=== PATIENT | male | born 1965 | race Caucasian/White ===

== ENCOUNTER 2016-07-05 18:17 | Inpatient (IN) | payer OTHER ==
[~2016-07-05] VITALS: Ht 180.3 cm; Wt 52.7 kg
[~2016-07-05 18:17] MED LIST: [UNRECOGNIZED DRUG - MIXTURE] PO
--- NOTE | 2016-07-05 19:15 | DIAGNOSTIC IMAGING REPORT ---
LEFT RIBS UNILATERAL WITH PA CHEST CLINICAL HISTORY: Left rib pain following fall. COMPARISON STUDY: Chest radiograph October 17, 2009. FINDINGS: There is no pneumothorax or pleural effusion. There are multiple old left lower rib fractures. There is an acute displaced and comminuted fracture of the posterior left fifth and sixth ribs. There are also nondisplaced fractures of left fourth and seventh ribs. There may be a nondisplaced fracture the left third rib. IMPRESSION: Acute displaced fractures of the left fifth and sixth ribs with nondisplaced fractures of the left third, fourth and seventh ribs. No pneumothorax. Electronically signed by: Kalin Roberts M.D. 07/05/2016 7:14 PM
[2016-07-05] MEDS ORDERED: OXYCODONE HCL IR 5 MG TAB (IMMEDIATE RELEASE) PO STA (19:58)
--- NOTE | 2016-07-05 20:38 | DIAGNOSTIC IMAGING REPORT ---
LEFT SHOULDER MIN 2 VIEWS ROUTINE CLINICAL HISTORY: Left shoulder pain. COMPARISON: None FINDINGS: Multiple acute left-sided rib fractures are noted. There is also an acute mildly displaced oblique fracture of the distal left clavicle. IMPRESSION: 1. Mildly displaced acute fracture of the distal left clavicle. 2. Multiple acute left-sided rib fractures, as shown on prior rib series. Electronically signed by: Kalin Roberts M.D. 07/05/2016 8:36 PM
[2016-07-05] MEDS ORDERED: MULTI-VITAMIN INFUSION INJ 10 ML, FoLIC ACID INJ 1 MG, THIAMINE HCL INJ 100 MG in SODIU... IV STA (20:51)
[2016-07-05] MEDS ORDERED: KETOROLAC TROMETHAMINE 30 MG/ML VIAL ONE (21:27)
[2016-07-05] MEDS ORDERED: KETOROLAC TROMETHAMINE 30 MG/ML VIAL IV PRN (21:30)
[2016-07-05] MEDS ORDERED: TRAMADOL HCL 50 MG TAB PO PRN (21:30)
[2016-07-05] MEDS ORDERED: GABAPENTIN 600 MG TAB PO SCH (21:30)
[2016-07-05] MEDS ORDERED: LORAZEPAM 1 MG TAB PO PRN (21:30)
[2016-07-05 21:31] LABS: BLOOD UREA NITROGEN 5 mg/dl (7-18); CARBON DIOXIDE 22 mmol/L (21-32); CHLORIDE 92 mmol/L (98-107); CREATININE 0.45 mg/dl (0.60-1.40); GLUCOSE 86 mg/dl (70-99); POTASSIUM 3.5 mmol/L (3.5-5.1); SODIUM 128 mmol/L (136-145)
[2016-07-05 22:00] LABS: BASO % 0.2 %; BASO ABS # 0.02 K/uL (0-0.2); COMPLETE YES; HEMATOCRIT 33.9 % (42-52); IG% 0.4 %; LYMPH % 6.5 %; LYMPH ABS # 0.64 K/uL (1.2-3.4); MEAN CELL VOLUME 93.1 fL (80-100); MEAN CORPUSCULAR HEMOGLOBIN 33.5 pg (25-34); MEAN PLATELET VOLUME 9.7 fL (7.4-10.4); NEUT % 78.9 %; PLATELET COUNT 65 K/uL (130-400); PLT ESTIMATE DECREASED; RED BLOOD COUNT 3.64 M/uL (4.7-6.1); WHITE BLOOD COUNT 9.92 K/uL (4.8-10.8)
[2016-07-05 22:11] LABS: ALKALINE PHOSPHATASE 99 U/L (45-117); ALT/SGPT 55 U/L (12-78); AST/SGOT 116 U/L (15-37)
--- NOTE | 2016-07-05 22:31 | EMERGENCY ROOM VISIT NOTE ---
History First contact with patient: 18:18 Chief Complaint: RIB PAIN Stated Complaint: RIB PAIN History of Present Illness The patient is a 50 year old homeless male who presents to the Emergency Room via ambulance, and with a close friend, with complaints of persistent left- sided rib pain. The patient reports that he fell out of his cot last evening, landing on his left side. The patient was sleeping at a homeless detention. The patient reports mild shortness of breath and significant pain with breathing. He denies any head injury, neck pain or back pain. He rates his discomfort a 9 out of 10. He denies any prior history of rib fractures. Review of Systems HEENT: Denies dizziness, visual problems, hearing loss, tinnitus. Denies difficulty swallowing or oral lesions. PULMONARY: Denies significant cough, shortness of breath, sputum production or hemoptysis. CARDIOVASCULAR: Denies chest pain, palpitations, dyspnea on exertion, orthopnea or peripheral edema. GASTROINTESTINAL: Denies diarrhea, constipation, nausea, vomiting, or abdominal pain. GENITOURINARY: Denies dysuria, frequency, urgency or nocturia. NEUROLOGIC: Denies history of epilepsy, CVA, TIA or chronic headaches. MUSCULOSKELETAL: Denies history of joint tenderness/swelling. SKIN: Denies rashes or lesions. PSYCHIATRIC: Denies history of depression or mental illness. ENDOCRINE: Denies history of diabetes or thyroid disorders. Past Medical/Surgical History Medical Problems: (1) Alcoh Dep Nec/Nos-Unspec (2) Chest pain (3) Fracture Calcaneus-Close (4) Hypertension Nos (5) Sprain Of Ankle Nos Family History Unremarkable Social History Smoking Status: Current Every Day Smoker Alcohol Use: heavy Marital Status: single Housing Status: other (homeless) Occupation Status: unemployed Current/Historical Medications No Active Prescriptions or Reported Meds Allergies Coded Allergies: Penicillins (Unverified Allergy, Mild, TIRED, 10) Physical Exam Vital Signs Date Time Temp Pulse Resp B/P Pulse Ox O2 Delivery O2 Flow Rate FiO2 07/05/16 21:38 18 156/91 95 Nasal Cannula 3.0 07/05/16 20:00 18 95 Nasal Cannula 3.0 07/05/16 19:45 87 Room Air 07/05/16 18:25 37.0 105 16 166/125 92 Room Air Physical Exam CONSTITUTIONAL: Healthy and well nourished. Alert and oriented X 3 with positive affect. Patient appears in moderate discomfort from pain. HEENT: Normocephalic, atraumatic. Pupils equal, round and reactive. No facial abrasions, ecchymosis, hemotympanum, raccoon's eyes or Davison sign. NECK: Full active range of motion without discomfort. RESPIRATORY: Clear to auscultation bilaterally with no wheezing, crackles, rhonchi or stridor. The patient has significant worsening discomfort with deep breathing. CARDIOVASCULAR: Regular rate and rhythm with no murmurs, rubs or gallops. GASTROINTESTINAL: Bowel sounds present in all quadrants. Soft and nontender to palpation. MUSCULOSKELETAL: Examination shows significant tenderness to palpation through the left lateral ribs. He also has mild tenderness through the costochondral joints and posterior ribs on the left side. No subcutaneous emphysema or flail segment appreciated. Patient also has tenderness to palpation over the anterior shoulder/distal clavicle region. He has no tenderness to palpation through the sternoclavicular joints. Otherwise he has no tenderness to palpation or discomfort with range of motion of the upper or lower extremities. Distal pulses are intact. INTEGUMENTARY: No rash or other significant dermatologic conditions noted. NEUROLOGIC: Cranial nerves II-XII grossly intact. No focal neurologic deficits noted. Upper and lower extremities are sensory intact. Medical Decision & Procedures ER Provider Diagnostic Interpretation: My interpretation of left rib x-rays with the PA chest shows multiple left- sided rib fractures with nondisplaced fractures of the third, fourth and seventh ribs. He has displaced fractures of the posterior left fifth and sixth ribs. No pneumothorax appreciated. LEFT RIBS UNILATERAL WITH PA CHEST CLINICAL HISTORY: Left rib pain following fall. COMPARISON STUDY: Chest radiograph October 17, 2009. FINDINGS: There is no pneumothorax or pleural effusion. There are multiple old left lower rib fractures. There is an acute displaced and comminuted fracture of the posterior left fifth and sixth ribs. There are also nondisplaced fractures of left fourth and seventh ribs. There may be a nondisplaced fracture the left third rib. IMPRESSION: Acute displaced fractures of the left fifth and sixth ribs with nondisplaced fractures of the left third, fourth and seventh ribs. No pneumothorax. LEFT SHOULDER MIN 2 VIEWS ROUTINE CLINICAL HISTORY: Left shoulder pain. COMPARISON: None FINDINGS: Multiple acute left-sided rib fractures are noted. There is also an acute mildly displaced oblique fracture of the distal left clavicle. IMPRESSION: 1. Mildly displaced acute fracture of the distal left clavicle. 2. Multiple acute left-sided rib fractures, as shown on prior rib series. Laboratory Results 07/05/16 21:00 Red Blood Count 3.64, Mean Corpuscular Volume 93.1, Mean Corpuscular Hemoglobin 33.5, Mean Corpuscular Hemoglobin Concent 36.0, Mean Platelet Volume 9.7, Neutrophils (%) (Auto) 78.9, Lymphocytes (%) (Auto) 6.5, Monocytes (%) (Auto) 14.0, Eosinophils (%) (Auto) 0.0, Basophils (%) (Auto) 0.2, Neutrophils # (Auto ) 7.83, Lymphocytes # (Auto) 0.64, Monocytes # (Auto) 1.39, Eosinophils # (Auto ) 0.00, Basophils # (Auto) 0.02 07/05/16 21:00 Test 07/05/16 21:00 07/05/16 21:27 07/05/16 21:36 White Blood Count 9.92 K/uL (4.8-10.8) Red Blood Count 3.64 M/uL (4.7-6.1) Hemoglobin 12.2 g/dL (14.0-18.0) Hematocrit 33.9 % (42-52) Mean Corpuscular Volume 93.1 fL (80-100) Mean Corpuscular Hemoglobin 33.5 pg (25-34) Mean Corpuscular Hemoglobin Concent 36.0 g/dl (32-36) Platelet Count 65 K/uL (130-400) Mean Platelet Volume 9.7 fL (7.4-10.4) Neutrophils (%) (Auto) 78.9 % Lymphocytes (%) (Auto) 6.5 % Monocytes (%) (Auto) 14.0 % Eosinophils (%) (Auto) 0.0 % Basophils (%) (Auto) 0.2 % Neutrophils # (Auto) 7.83 K/uL (1.4-6.5) Lymphocytes # (Auto) 0.64 K/uL (1.2-3.4) Monocytes # (Auto) 1.39 K/uL (0.11-0.59) Eosinophils # (Auto) 0.00 K/uL (0-0.5) Basophils # (Auto) 0.02 K/uL (0-0.2) RDW Standard Deviation 40.7 fL (36.4-46.3) RDW Coefficient of Variation 12.0 % (11.5-14.5) Immature Granulocyte % (Auto) 0.4 % Immature Granulocyte # (Auto) 0.04 K/uL (0.00-0.02) Platelet Estimate DECREASED Anion Gap 14.0 mmol/L (3-11) Est Creatinine Clear Calc Drug Dose 192.3 ml/min Estimated GFR () > 150.0 Estimated GFR (Non- 131.0 BUN/Creatinine Ratio 10.0 (10-20) Calcium Level 8.0 mg/dl (8.5-10.1) Total Bilirubin 0.6 mg/dl (0.2-1) Direct Bilirubin 0.2 mg/dl (0-0.2) Aspartate Amino Transf (AST/SGOT) 116 U/L (15-37) Alanine Aminotransferase (ALT/SGPT) 55 U/L (12-78) Alkaline Phosphatase 99 U/L (45-117) Total Protein 6.8 gm/dl (6.4-8.2) Albumin 3.3 gm/dl (3.4-5.0) Creatine Kinase MB Ratio (0-3.0) The above labs were reviewed. Medications Administered Medications (Trade) Dose Ordered Sig/Jaylene Route Start Time Stop Time Status Last Admin Dose Admin Oxycodone HCl 5 mg 5 mg NOW STAT PO 07/05/16 19:58 07/05/16 19:59 DC 07/05/16 20:10 5 MG Multivitamins/ Folic Acid/ Thiamine HCl/ Sodium Chloride (Mvi Infusion Inj/Folvite Inj/ Vitamin B-1 Inj/ Nss 1000ml) 1,011.2 ml @ 999 mls/ hr Q1H1M STAT IV 07/05/16 20:51 07/05/16 21:51 DC 07/05/16 21:36 999 MLS/HR Ketorolac Tromethamine (Toradol Inj) 30 mg STK-MED ONCE .ROUTE 07/05/16 21:27 07/05/16 21:28 DC 07/05/16 21:36 30 MG ED Course Patient history and physical exam were performed. Nurse's notes were reviewed. Review of triage vital signs shows an elevated blood pressure 166/125 with a pulse rate of 105. O2 saturation was 92% on room air. The patient was afebrile. Smell of EtOH is also noted. The patient's best friend reports that the patient has a history of heavy alcohol use and dependence. The friend does not know if the patient has never had any withdrawal symptoms in the past. On initial exam, the patient refused any analgesics. X-rays of left ribs with PA chest shows 5 rib fractures. An x-ray of the left shoulder was also ordered because of a probable distal clavicle fracture seen on chest x-ray, with the shoulder x-ray confirming a distal clavicle fracture. The patient did request something then for pain, and was administered OxyIR 5 mg orally. The case was then further discussed with Dr. Henry, ED attending physician. As the patient's homeless status, and significant risk for developing pneumonia , along with the fact that the patient is mildly hypoxic, I felt that hospitalist evaluation and admission/observation for possible placement was warranted. Also patient was then placed with the [facility] hospitalist group, who came to the emergency department for further evaluation. At this point, I ordered baseline labs, and the patient was ordered a banana bag. Please see the hospitalist dictation for further treatment and final disposition. Medical Decision See previous section Impression Primary Impression: multiple left rib fractures Additional Impressions: Closed left clavicular fracture, Fall as cause of accidental injury in residential institution as place of occurrence, Alcohol dependence Departure Information Prescriptions No Active Prescriptions or Reported Meds Referrals No Doctor, Assigned (PCP) Patient Instructions A Signature Page, [facility]
[2016-07-05 22:57] LABS: CKMB/CK RATIO 0.6 (0-3.0)
[2016-07-05 23:04] VITALS: BP 183/101; PULSE 79; TEMP 36.9; O2SAT 94
[2016-07-05] MEDS ORDERED: OXYCODONE/ACETAMINOPHEN 5-325 TAB PO PRN (23:15)
[2016-07-05] MEDS ORDERED: IV FLUIDS COMPLETED PRN (23:30)
[2016-07-06] VITALS (34 sets, daily range): BP systolic 113–206; BP diastolic 74–111; PULSE 68–120; TEMP 36.4–39.3; O2SAT 90–98; BMI 21.5
[2016-07-06] MEDS ORDERED: GABAPENTIN 1200MG LOADING DOSE PO ONE
[2016-07-06] MEDS: SODIUM CHLORIDE 0.9% 1000ML 1,000 ML IV SCH ×3 (00:08→19:33)
[2016-07-06] MEDS: MoRPHine SULFATE 4 MG/ML 1 ML CARP\\VIAL IV PRN (00:09)
[2016-07-06] MEDS: CLONIDINE HCL 0.1 MG TAB PO PRN ×4 (00:36→23:54)
--- NOTE | 2016-07-06 01:23 | HISTORY & PHYSICAL EXAMINATION ---
DATE OF ADMISSION: 07/05/2016 TIME: 9:36 p.m. HISTORY OF PRESENT ILLNESS: The patient is a pleasant 50-year-old male, who resides in a homeless jail, history of alcoholism, smoking and chart history of hypertension presenting with left-sided chest pain after a fall which started yesterday. As per patient, he was in his baseline state of health until last night when while sleeping he accidentally fell out of the bed and landed on the floor. Since then has been having progressive left-sided rib pain/chest pain, sharp, moderate to severe. No associated shortness of breath, palpitations, nausea, vomiting, dizziness or headache. No other pain in his body. The pain has been progressive, he has not tried any pain medications at outside hospital yet. His friends urged him to come to the Emergency Room for evaluation. At the ED, the patient was admitted with blood pressure of 166/125, pulse oximetry 92% on room air becoming 87% on room air on 3 liters 95% afebrile. His chest x-ray did show displaced comminuted fractures of the 5th and 6th ribs and also nondisplaced fractures of the left 4th and 7th ribs as well as nondisplaced fracture of the left 3rd rib. His clavicle also showed mildly displaced acute fracture of the distal left clavicle. The patient was given oxycodone in the ER and referred to hospitalist for admission. When I examined the patient, he is resting in bed. He states that his pain is moderate, he denies shortness of breath. No palpitations, nausea, vomiting, diaphoresis, headache, dizziness or change with vision. No other symptoms noted. He states that he drinks alcohol, 10-12 beers a day, last drink yesterday. He denies tremors, hallucinations or anxiety. Also smokes [id number] for the past 20 years. Denies any other symptoms. REVIEW OF SYSTEMS: Ten systems reviewed and negative except for the ones mentioned above. PAST MEDICAL HISTORY: The patient does not see any primary care physician. He lives in a homeless jail. He does have chart history of alcoholism, smoking and hypertension. PAST SURGICAL HISTORY: Unremarkable. FAMILY HISTORY: Cancer in both parents. PERSONAL AND SOCIAL HISTORY: He smokes [id number]-day for 20 years. He drinks alcohol, 10-12 beers a day, last drink was yesterday. PHYSICAL EXAMINATION: VITAL SIGNS: Blood pressure is 166/125, pulse rate 105, respiratory rate 14, temperature is 37.6, saturating 95% on 3 liters nasal cannula. GENERAL: The patient is awake, alert, oriented x3, not in distress, speaks in sentences. No accessory muscle use. HEAD AND NECK: Atraumatic and normocephalic. Normal pupils. Full EOMs. No icterus. Aristes conjunctivae. ENT: Grossly normal. NECK: No JVD, no lymphadenopathy or thyromegaly. HEART: Normal rate. Regular rhythm. Good S1 and S2. No murmurs. LUNGS: Clear breath sounds bilaterally. No rales or wheezes. Positive tenderness on the left 4th and 6th ribs and clavicle area. ABDOMEN: Nondistended, normal bowel sounds, soft, nontender. EXTREMITIES: No lower leg edema, no tenderness. The patient declined examination of his feet. NEUROLOGIC: No gross focal motor or sensory deficits. LABORATORIES: CBC is pending. PRP; sodium 128, potassium 3.5, chloride is 92, carbon dioxide 22, anion gap 14, BUN is 5, creatinine is 0.45, calcium is 8.0. Chest x-ray and shoulder x-ray per my H\T\P. EKG pending. ASSESSMENT AND PLAN: This is a 50-year-old male, who lives in a homeless jail with a history of alcoholism, smoking and hypertension by chart history; presenting with left-sided rib/chest pains after a fall since last night. 1. Left-sided chest pain, likely secondary to acute left rib fractures; 4th to 7th ribs as well as left clavicle fracture secondary to accidental fall. At this time, management will be mainly pain control with p.r.n. Toradol and tramadol. Also will be placed on incentive spirometry, intravenous fluids, physical therapy and occupational therapy evaluation. Orthopedic consultation will be placed for further recommendations. 2. Hypoxia, likely secondary to #1. We will continue pulse oximetry monitoring and incentive spirometry. 3. Hypertension history. Currently hypertensive, likely secondary to pain, which we will monitor. We will place clonidine p.r.n. for now. May need maintenance blood pressure medications if this is still uncontrolled despite for pain control. 4. Alcoholism drinks 10-12 beers per day, last drink was yesterday. Currently, does not exhibit any signs of withdrawal yet. We will follow alcohol withdrawal protocol and the patient is at risk for alcohol withdrawal, so gabapentin protocol tapering doses. He was started on banana bag as well. 5. Hyponatremia of 128, likely secondary to dehydration. We will start banana bag and will proceed with normal saline. We will recheck PRP in 6 hours and further monitor him based on that. 6. Deep venous thrombosis prophylaxis: SCDs for now. 7. Code status: Full code per patient. 8. Disposition: Pending. He resides in a homeless jail. We will consult case management.
[2016-07-06 03:56] LABS: HEMATOCRIT 31.5 % (42-52); MEAN CELL VOLUME 94.3 fL (80-100); MEAN CORPUSCULAR HEMOGLOBIN 33.8 pg (25-34); MEAN CORPUSCULAR HGB CONC 35.9 g/dl (32-36); RED BLOOD COUNT 3.34 M/uL (4.7-6.1); WHITE BLOOD COUNT 8.47 K/uL (4.8-10.8)
[2016-07-06 03:58] LABS: MEAN PLATELET VOLUME 10.5 fL (7.4-10.4); PLATELET COUNT 58 K/uL (130-400)
[2016-07-06] MEDS ORDERED: AMLODIPINE BESYLATE 5 MG TAB PO ONE (04:00)
[2016-07-06 04:14] LABS: BUN/CREATININE RATIO 10.2 (10-20); CALCIUM 7.5 mg/dl (8.5-10.1); CREATININE 0.5 mg/dl (0.60-1.40); MAGNESIUM 1.6 mg/dl (1.8-2.4); POTASSIUM 3.5 mmol/L (3.5-5.1)
[2016-07-06 04:18] LABS: CKMB/CK RATIO 0.5 (0-3.0)
[2016-07-06 04:20] LABS: BASO % 0.1 %; BASO ABS # 0.01 K/uL (0-0.2); COMPLETE YES; IG% 0.4 %; LYMPH ABS # 0.76 K/uL (1.2-3.4); MONO % 15.2 %; NEUT % 75.3 %
[2016-07-06] MEDS: GABAPENTIN 600MG Q6H DOSE PO SCH ×2 (06:34→12:20)
[2016-07-06] MEDS: NICOTINE 14 MG/24 HR TDSY TD SCH (09:00)
[2016-07-06] MEDS: THIAMINE HCL 100 MG TAB PO SCH (09:00)
--- NOTE | 2016-07-06 10:21 | ECHOCARDIOGRAM REPORT ---
*NOTICE TO RECEIVING LIBERTARIAN AGENCY This information is strictly Confidential and protected under [place] law. [place] law prohibits you from making any further disclosure of this information unless further disclosure is expressly permitted by the written consent of the person to whom it pertains or is authorized by law. A general authorization for the release of medical or other information is not sufficient for this purpose. Hospital accepts no responsibility if the information is made available to any other person, INCLUDING THE PATIENT. Interpretation Summary * Name: ANG MEDEL Study Date: 07/06/2016 08:00 AM BP: 177/94 mmHg * Patient Location: .3E\S\E305\S\1 HR: 88 * : 1965 (M/d/yyyy) Gender: Male Height: 70 in * Age: 50 yrs Ethnicity: CA Weight: 154 lb * Ordering Physician: Romario Ratliff * Performed By: Nicki Messina RCS * * Reason For Study: T-WAVE INVERSION / ANTERIOR LEADS * BSA: 1.9 m2 * The study was technically adequate. * -- Conclusions -- * Left ventricular systolic function is normal. * Ejection Fraction = 60-65%. * The aortic valve is bicuspid. * Trace aortic regurgitation. * Aortic stenosis is absent. * Moderately dilated ascending aorta. * Mild aortic root dilatation. * There is mild tricuspid regurgitation. * Estimated systolic PAP is 37mmHg. Procedure Details * A complete two-dimensional transthoracic echocardiogram was performed (2D, M-mode, Doppler and color flow Doppler). Left Ventricle * The left ventricle is normal in size. * There is normal left ventricular wall thickness. * Left ventricular systolic function is normal. * Ejection Fraction = 60-65%. * No regional wall motion abnormalities noted. Right Ventricle * The right ventricle is normal size. * The right ventricular systolic function is normal as assessed by tricuspid annular plane systolic excursion (TAPSE) (normal >1.5 cm). Atria * The left atrial size is normal. * Right atrial size is normal. * There is no evidence of atrial septal defect, but resolution does not allow assessment for a patent foramen ovale. Mitral Valve * The mitral valve is normal. * There is no mitral valve stenosis. * There is trace mitral regurgitation. Tricuspid Valve * The tricuspid valve is normal. * There is no tricuspid stenosis. * There is mild tricuspid regurgitation. * Estimated systolic PAP is 37mmHg. Aortic Valve * The aortic valve is bicuspid. * Aortic stenosis is absent. * Trace aortic regurgitation. Pulmonic Valve * The pulmonary valve is not well seen, but the Doppler examination is normal without significant regurgitation or stenosis. Great Vessels * Mild aortic root dilatation. * Moderately dilated ascending aorta. Pericardium/Pleural * There is no pericardial effusion. Great Vessels * Normal inferior vena cava diameter and respiratory variation suggests normal central venous pressure. Left Ventricular Diastolic Function * Pulse wave TDI of the anterior and posterior mitral annulas demonstrates abnormal LV relaxation MMode 2D Measurements and Calculations IVSd 1.1 cm IVSs 1.4 cm LVIDd 4.2 cm LVIDs 3.5 cm LVPWd 0.90 cm LVPWs 1.1 cm IVS/LVPW 1.2 FS 17.9 % EDV(Teich) 80.5 ml ESV(Teich) 50.3 ml EF(Teich) 37.5 % EDV(cubed) 76.4 ml ESV(cubed) 42.3 ml EF(cubed) 44.7 % % IVS thick 31.7 % % LVPW thick 25.4 % LV mass(C)d 138.1 grams LV mass(C)dI 74.0 grams/m\S\2 LV mass(C)s 149.0 grams LV mass(C)sI 79.8 grams/m\S\2 SV(Teich) 30.2 ml SI(Teich) 16.2 ml/m\S\2 SV(cubed) 34.2 ml SI(cubed) 18.3 ml/m\S\2 Ao root diam 4.1 cm Ao root area 13.0 cm\S\2 asc Aorta Diam 4.6 cm LVOT diam 2.0 cm LVOT area 3.2 cm\S\2 Doppler Measurements and Calculations MV E max coleen 59.8 cm/sec MV A max coleen 64.8 cm/sec MV E/A 0.92 MV P1/2t max coleen 116.5 cm/sec MV P1/2t 66.4 msec MVA(P1/2t) 3.3 cm\S\2 MV dec slope 513.8 cm/sec\S\2 MV dec time 0.24 sec Ao V2 max 120.1 cm/sec Ao max PG 5.8 mmHg Ao max PG (full) 3.5 mmHg ADALGISA(V,A) 2.0 cm\S\2 ADALGISA(V,D) 2.0 cm\S\2 AI max coleen 379.2 cm/sec AI max PG 57.5 mmHg AI dec slope 216.3 cm/sec\S\2 AI P1/2t 513.4 msec LV V1 max PG 2.3 mmHg LV V1 max 75.9 cm/sec PA V2 max 123.6 cm/sec PA max PG 6.1 mmHg TR max coleen 274.8 cm/sec
--- NOTE | 2016-07-06 11:15 | DIAGNOSTIC IMAGING REPORT ---
CHEST ONE VIEW PORTABLE HISTORY: Short of breath. infiltrate/congestion COMPARISON: Chest 10/17/2009. [Rib series 07/05/2016. FINDINGS: Multiple acute left-sided rib fractures are again noted. There is a new [id number] left pleural effusion with left basilar densities suggesting atelectasis. The right lung is clear. The heart is normal in size. No pneumothorax. IMPRESSION: 1. Redemonstration of the multiple acute left-sided rib fractures. No pneumothorax. 2. Interval development of a small to moderate left pleural effusion. This likely represents a hemothorax given the recent trauma. Electronically signed by: Jigar Cassidy M.D. 07/06/2016 11:14 AM
[2016-07-06] MEDS ORDERED: PIPERACILL/TAZOBAC CONSULT ACTIVE PRN (11:30)
[2016-07-06] MEDS ORDERED: PIPERACILL/TAZOBAC IV 4.5 GM in DEXTROSE 5% 100ML 100 ML IV ONE (12:15)
[2016-07-06] MEDS ORDERED: NURSING VERBAL MED ORDER ONE (12:15)
[2016-07-06] MEDS ORDERED: MICONAZOLE NITRATE POWDER 43 GM EXT PRN (12:30)
[2016-07-06] MEDS ORDERED: MAGNESIUM SULFATE 1GM / D5W 1 GM in PREMIXED IN D5W 100 ML IV ONE (14:00)
--- NOTE | 2016-07-06 14:12 | Orthopedic Progress Note ---
Orthopedic Progress Note Date of Service Jul 06, 2016. Subjective Reports: feeling well Additional Notes: 50 y/o wm with h/o falling out of his bed/cot last night at a homeless half-way. At that time he had pain in his left rib cage and shoulder. A friend convinced him to go to the ER where he was seen by the staff. Xrays revealed multiple rib fx's and a left clavicle fracture. Pt was noted to be hypertensive and low O2 sats off and on and was admitted for further eval. Currently, pt is febrile. (BC's ordered) BP's under better control. Pt currently is awake, alert to person, place. C/O Left rib/shoulder pain. Denies SOB, CP currently. Objective Left arm is not in a sling yet. Left shoulder with swelling due to clavicle fx. Denies elbow pain, wrist/hand pain. Decreased ROM of shoulder due to fx. CMS intact. Good capillary refill. Date Time Temp Pulse Resp B/P Pulse Ox O2 Delivery O2 Flow Rate FiO2 07/06/16 12:24 37.8 07/06/16 11:32 39.3 07/06/16 10:08 39.3 91 24 155/87 92 Nasal Cannula 3.0 07/06/16 08:17 38.4 110 28 164/106 90 3.0 07/06/16 08:14 38.4 85 26 166/87 94 Nasal Cannula 3.0 07/06/16 07:41 Nasal Cannula 3.0 07/06/16 07:39 38.4 110 28 164/106 90 3.0 07/06/16 06:43 172/100 07/06/16 03:47 37.5 68 16 177/94 98 Nasal Cannula 3.0 07/06/16 02:15 175/85 07/06/16 00:40 177/92 07/06/16 00:38 Nasal Cannula 3.0 07/06/16 00:09 Nasal Cannula 3.0 07/05/16 23:04 36.9 79 18 183/101 94 Nasal Cannula 3.0 07/05/16 22:41 37.0 68 18 165/102 96 07/05/16 21:38 18 156/91 95 Nasal Cannula 3.0 07/05/16 20:00 18 95 Nasal Cannula 3.0 07/05/16 19:45 87 Room Air 07/05/16 18:25 37.0 105 16 166/125 92 Room Air Laboratory Results 24 Hours: Test 07/05/16 21:00 07/06/16 03:25 White Blood Count 9.92 K/uL 8.47 K/uL Red Blood Count 3.64 M/uL 3.34 M/uL Hemoglobin 12.2 g/dL 11.3 g/dL Hematocrit 33.9 % 31.5 % Mean Corpuscular Volume 93.1 fL 94.3 fL Mean Corpuscular Hemoglobin 33.5 pg 33.8 pg Mean Corpuscular Hemoglobin Concent 36.0 g/dl 35.9 g/dl Platelet Count 65 K/uL 58 K/uL Mean Platelet Volume 9.7 fL 10.5 fL Neutrophils (%) (Auto) 78.9 % 75.3 % Lymphocytes (%) (Auto) 6.5 % 9.0 % Monocytes (%) (Auto) 14.0 % 15.2 % Eosinophils (%) (Auto) 0.0 % 0.0 % Basophils (%) (Auto) 0.2 % 0.1 % Neutrophils # (Auto) 7.83 K/uL 6.38 K/uL Lymphocytes # (Auto) 0.64 K/uL 0.76 K/uL Monocytes # (Auto) 1.39 K/uL 1.29 K/uL Eosinophils # (Auto) 0.00 K/uL 0.00 K/uL Basophils # (Auto) 0.02 K/uL 0.01 K/uL Assessment & Plan Assessment: Left Clavicle Fracture Left Rib Fractures Plan: Plan for pt to use a sling on the LUE for 4-6 weeks Continue current pain meds Inhouse Planning Pain Management: Percocet, Ultram, Morphine
[2016-07-06 17:11] LABS: PROTHROMBIN TIME (PATIENT) 10.9 SECONDS (9.0-12.0)
[2016-07-06] MEDS: PIPERACILL/TAZOBAC IV 3.375 GM in DEXTROSE 5% 100ML 100 ML IV SCH (17:45)
[2016-07-06 17:55] LABS: MANUAL MICROSCOPIC REQUIRED? NO; REVIEW REQ? NO; URINE APPEARANCE CLEAR (CLEAR); URINE BILIRUBIN NEG (NEG); URINE COLOR YELLOW; URINE NITRITE NEG (NEG); URINE SPECIFIC GRAVITY 1.023 (1.000-1.030); UROBILINOGEN NEG (NEG); ZZUR CULT IF INDIC CLEAN CATCH NO
--- NOTE | 2016-07-06 19:00 | Pulmonary Consultation ---
History General Date of Service: Jul 06, 2016. Stated Complaint: Chest Pain possible hemothorax HPI The patient is a 50 year old male who presents to [facility] with complaints of Chest Pain. The patient's primary care provider is No Doctor , Assigned. At the time of my evaluation the patient was altered and would not answer any questions. All my notes are from EMS. 50y/o male s/p male whom lives in homeless [facility], history of alcoholism, smoking and hypertension. He presented after fall with left-sided chest pain after a fall which started yesterday. As per patient, he was in his baseline state of health until last night when while sleeping he accidentally fell out of the bed and landed on the floor. He then expericneed progressive left-sided rchest pain. He described it as sharp, moderate to severe. At that time he deined: shortness of breath, palpitations, nausea, vomiting, dizziness or headache. No other pain in his body. smokes [id number] for the past 20 years Cardiac Echo 07/06/2016 * LV: EF=60-65% * The aortic valve is bicuspid. * Moderately dilated ascending aorta * Estimated systolic PAP is 37mmHg. Review of Systems Patient is unable to complete review of systems Past Medical History Past Medical History: Per the charts hypertension Past Surgical History: Past medical history Social History Hx Tobacco Use In Past Year?: Yes Smoking Status: Current Every Day Smoker Marital status: single Occupational Status: unemployed History of MDRO History of MDRO: No Allergies Coded Allergies: Penicillins (Unverified Adverse Reaction, Mild, TIRED, 07/06/16) Current Medications Reported Home Medications Medications Dose Route/Sig Max Daily Dose Days Date Category No Active Prescriptions or Reported Medications Rx Physical Physical Exam Vital Signs: Date Time Temp Pulse Resp B/P Pulse Ox O2 Delivery O2 Flow Rate FiO2 07/06/16 18:45 37.8 103 26 159/89 95 Nasal Cannula 3.0 07/06/16 18:25 37.4 116 24 192/102 93 Nasal Cannula 3.0 07/06/16 17:50 38.0 101 24 196/111 94 Nasal Cannula 3.0 07/06/16 15:22 39.1 93 18 128/77 93 Nasal Cannula 3.0 07/06/16 14:42 38.9 99 20 142/83 91 Nasal Cannula 2.0 07/06/16 12:24 37.8 07/06/16 11:32 39.3 07/06/16 10:08 39.3 91 24 155/87 92 Nasal Cannula 3.0 07/06/16 08:17 38.4 110 28 164/106 90 3.0 07/06/16 08:14 38.4 85 26 166/87 94 Nasal Cannula 3.0 07/06/16 07:41 Nasal Cannula 3.0 07/06/16 07:39 38.4 110 28 164/106 90 3.0 07/06/16 06:43 172/100 07/06/16 03:47 37.5 68 16 177/94 98 Nasal Cannula 3.0 07/06/16 02:15 175/85 07/06/16 00:40 177/92 07/06/16 00:38 Nasal Cannula 3.0 07/06/16 00:09 Nasal Cannula 3.0 07/05/16 23:04 36.9 79 18 183/101 94 Nasal Cannula 3.0 07/05/16 22:41 37.0 68 18 165/102 96 07/05/16 21:38 18 156/91 95 Nasal Cannula 3.0 07/05/16 20:00 18 95 Nasal Cannula 3.0 07/05/16 19:45 87 Room Air I was unable to perform a full physical evaluation of the patient refused physical exam General Appearance: mild distress Head: NORMOCEPHALIC Eyes: other (patient was poorly compliant with my evaluation would not fully open both eyes was able to open intermittently spontaneously) ENT: other Diagnostics Labs Results Past 24 Hours Test 07/05/16 21:00 07/05/16 21:36 07/05/16 22:15 07/06/16 03:25 Range/Units White Blood Count 9.92 8.47 4.8-10.8 K/uL Red Blood Count 3.64 3.34 4.7-6.1 M/uL Hemoglobin 12.2 11.3 14.0-18.0 g/dL Hematocrit 33.9 31.5 42-52 % Mean Corpuscular Volume 93.1 94.3 80-100 fL Mean Corpuscular Hemoglobin 33.5 33.8 25-34 pg Mean Corpuscular Hemoglobin Concent 36.0 35.9 32-36 g/dl Platelet Count 65 58 130-400 K/uL Mean Platelet Volume 9.7 10.5 7.4-10.4 fL Neutrophils (%) (Auto) 78.9 75.3 % Lymphocytes (%) (Auto) 6.5 9.0 % Monocytes (%) (Auto) 14.0 15.2 % Eosinophils (%) (Auto) 0.0 0.0 % Basophils (%) (Auto) 0.2 0.1 % Neutrophils # (Auto) 7.83 6.38 1.4-6.5 K/uL Lymphocytes # (Auto) 0.64 0.76 1.2-3.4 K/uL Monocytes # (Auto) 1.39 1.29 0.11-0.59 K/uL Eosinophils # (Auto) 0.00 0.00 0-0.5 K/uL Basophils # (Auto) 0.02 0.01 0-0.2 K/uL RDW Standard Deviation 40.7 41.4 36.4-46.3 fL RDW Coefficient of Variation 12.0 12.1 11.5-14.5 % Immature Granulocyte % (Auto) 0.4 0.4 % Immature Granulocyte # (Auto) 0.04 0.03 0.00-0.02 K/uL Platelet Estimate DECREASED Sodium Level 128 130 136-145 mmol/L Potassium Level 3.5 3.5 3.5-5.1 mmol/L Chloride Level 92 92 98-107 mmol/L Carbon Dioxide Level 22 25 21-32 mmol/L Anion Gap 14.0 13.0 3-11 mmol/L Blood Urea Nitrogen 5 5 7-18 mg/dl Creatinine 0.45 0.50 0.60-1.40 mg/dl Est Creatinine Clear Calc Drug Dose 192.3 173.1 ml/min Estimated GFR () > 150.0 145.4 Estimated GFR (Non- 131.0 125.5 BUN/Creatinine Ratio 10.0 10.2 10-20 Random Glucose 86 72 70-99 mg/dl Calcium Level 8.0 7.5 8.5-10.1 mg/dl Total Bilirubin 0.6 0.2-1 mg/dl Direct Bilirubin 0.2 0-0.2 mg/dl Aspartate Amino Transf (AST/SGOT) 116 15-37 U/L Alanine Aminotransferase (ALT/SGPT) 55 12-78 U/L Alkaline Phosphatase 99 45-117 U/L Total Creatine Kinase 622 590 39-308 U/L Creatine Kinase MB 4.0 3.0 0.5-3.6 ng/ml Creatine Kinase MB Ratio 0.6 0.5 0-3.0 Troponin I < 0.015 0.018 0-0.045 ng/ml Total Protein 6.8 6.4-8.2 gm/dl Albumin 3.3 3.4-5.0 gm/dl Vitamin B12 Level 533 211-911 pg/mL Folate > 24.00 >5.38 ng/mL Red Blood Cell Morphology Unremarkable Magnesium Level 1.6 1.8-2.4 mg/dl Test 07/06/16 16:43 07/06/16 17:40 Range/Units Prothrombin Time 10.9 9.0-12.0 SECONDS Prothromb Time International Ratio 1.0 0.9-1.1 Urine Color YELLOW Urine Appearance CLEAR CLEAR Urine pH 6.0 4.5-7.5 Urine Specific [place] 1.023 1.000-1.030 Urine Protein TRACE NEG Urine Glucose (UA) NEG NEG Urine Ketones 2+ NEG Urine Occult Blood NEG NEG Urine Nitrite NEG NEG Urine Bilirubin NEG NEG Urine Urobilinogen NEG NEG Urine Leukocyte Esterase NEG NEG Urine WBC (Auto) 1-5 0-5 /hpf Urine RBC (Auto) 0-4 0-4 /hpf Urine Hyaline Casts (Auto) 0 0-5 /lpf Urine Epithelial Cells (Auto) 10-20 0-5 /lpf Urine Bacteria (Auto) NEG NEG Microbiology Results 07/06/16 Blood Culture, Received Pending 07/06/16 Blood Culture, Received Pending Diagnostic Radiology Chest x-ray 07/06/16 demonstrates opacification of the left hemidiaphragm multiple rib fractures EKG Possible left ventricular hypertrophy otherwise within normal limits Impression Assessment and Plan 50-year-old alcoholic gentleman with possible hemothorax: #1 hemothorax: Medically should attempt to drain the left hemithorax as soon as possible so is the possible hemothorax cannot consolidate a require surgical intervention. The patient is noncompliant at this time and I do not think prepared right deemed competent to consent for procedure. #2 hypoxemia: Most likely associated with his pneumothorax, atelectasis and splinting from pain. At this time chest physiotherapy would be appropriate. The most beneficial action would be patient to ambulate and drainage of the most likely hemothorax. I thank you for this consultation we'll continue to be in house please consult when patient is ready.
--- NOTE | 2016-07-06 19:04 | Progress Note ---
Internal Med Progress Note Date of Service: Jul 06, 2016. Provider Documentation: SUBJECTIVE: patient presented s/p fall and rib fractures alcoholism confused currently spiking temps OBJECTIVE: Vital Signs-as noted below Exam: General-alert and awake. Confused ENT-hard of hearing Neck-no neck masses Lungs-cta b/l no wheezing or crackles Heart-s1 and s2 heard regular rate and rhythm, no murmurs Abdomen-soft bowel sounds present no distension Extremities-no pedal edema no erythema foul smelling feet Neuro-alert and awake. confused moves extremities Lab data as noted below. ASSESSMENT & PLAN: This is a 50-year-old male, who lives in a homeless intermediate with a history of alcoholism, smoking and hypertension by chart history; presenting with left-sided rib/chest pains after a fall since last night. 1. Left-sided chest pain, secondary to acute left rib fractures; 4th to 7th ribs as well as left clavicle fracture secondary to accidental fall. pain control appreciate ortho input pt/ot. 2. hemothorax possibly consulted pulmonary and plan for tapping 3. Sepsis? spiking temp and tachycardia foul smelling feet started on Zosyn f/u cx and lactic acid 4. Hypoxia, likely secondary to above. We will continue pulse oximetry monitoring and incentive spirometry. 5. Hypertension history. on clonidine prn may need medications on discharge. 6. Alcoholism drinks 10-12 beers per day, last drink was yesterday. on gabapentin protocol tapering doses.iv Ativan prn close monitor may need to transfer to pcu. 5. Hyponatremia of 128, likely secondary to dehydration. Na 130 today on fluids f/u labs in am. 6. Deep venous thrombosis prophylaxis: SCDs for now. DISPOSITION to be determined Vital Signs: Date Time Temp Pulse Resp B/P Pulse Ox O2 Delivery O2 Flow Rate FiO2 07/06/16 18:45 37.8 103 26 159/89 95 Nasal Cannula 3.0 07/06/16 18:25 37.4 116 24 192/102 93 Nasal Cannula 3.0 07/06/16 17:50 38.0 101 24 196/111 94 Nasal Cannula 3.0 07/06/16 15:22 39.1 93 18 128/77 93 Nasal Cannula 3.0 07/06/16 14:42 38.9 99 20 142/83 91 Nasal Cannula 2.0 12/21/16 12:24 37.8 07/06/16 11:32 39.3 07/06/16 10:08 39.3 91 24 155/87 92 Nasal Cannula 3.0 07/06/16 08:17 38.4 110 28 164/106 90 3.0 07/06/16 08:14 38.4 85 26 166/87 94 Nasal Cannula 3.0 07/06/16 07:41 Nasal Cannula 3.0 07/06/16 07:39 38.4 110 28 164/106 90 3.0 07/06/16 06:43 172/100 07/06/16 03:47 37.5 68 16 177/94 98 Nasal Cannula 3.0 07/06/16 02:15 175/85 07/06/16 00:40 177/92 07/06/16 00:38 Nasal Cannula 3.0 07/06/16 00:09 Nasal Cannula 3.0 07/05/16 23:04 36.9 79 18 183/101 94 Nasal Cannula 3.0 07/05/16 22:41 37.0 68 18 165/102 96 07/05/16 21:38 18 156/91 95 Nasal Cannula 3.0 07/05/16 20:00 18 95 Nasal Cannula 3.0 07/05/16 19:45 87 Room Air Lab Results: Results Past 24 Hours Test 07/05/16 21:00 07/05/16 21:36 07/05/16 22:15 07/06/16 03:25 Range/Units White Blood Count 9.92 8.47 4.8-10.8 K/uL Red Blood Count 3.64 3.34 4.7-6.1 M/uL Hemoglobin 12.2 11.3 14.0-18.0 g/dL Hematocrit 33.9 31.5 42-52 % Mean Corpuscular Volume 93.1 94.3 80-100 fL Mean Corpuscular Hemoglobin 33.5 33.8 25-34 pg Mean Corpuscular Hemoglobin Concent 36.0 35.9 32-36 g/dl Platelet Count 65 58 130-400 K/uL Mean Platelet Volume 9.7 10.5 7.4-10.4 fL Neutrophils (%) (Auto) 78.9 75.3 % Lymphocytes (%) (Auto) 6.5 9.0 % Monocytes (%) (Auto) 14.0 15.2 % Eosinophils (%) (Auto) 0.0 0.0 % Basophils (%) (Auto) 0.2 0.1 % Neutrophils # (Auto) 7.83 6.38 1.4-6.5 K/uL Lymphocytes # (Auto) 0.64 0.76 1.2-3.4 K/uL Monocytes # (Auto) 1.39 1.29 0.11-0.59 K/uL Eosinophils # (Auto) 0.00 0.00 0-0.5 K/uL Basophils # (Auto) 0.02 0.01 0-0.2 K/uL RDW Standard Deviation 40.7 41.4 36.4-46.3 fL RDW Coefficient of Variation 12.0 12.1 11.5-14.5 % Immature Granulocyte % (Auto) 0.4 0.4 % Immature Granulocyte # (Auto) 0.04 0.03 0.00-0.02 K/uL Platelet Estimate DECREASED Sodium Level 128 130 136-145 mmol/L Potassium Level 3.5 3.5 3.5-5.1 mmol/L Chloride Level 92 92 98-107 mmol/L Carbon Dioxide Level 22 25 21-32 mmol/L Anion Gap 14.0 13.0 3-11 mmol/L Blood Urea Nitrogen 5 5 7-18 mg/dl Creatinine 0.45 0.50 0.60-1.40 mg/dl Est Creatinine Clear Calc Drug Dose 192.3 173.1 ml/min Estimated GFR () > 150.0 145.4 Estimated GFR (Non- 131.0 125.5 BUN/Creatinine Ratio 10.0 10.2 10-20 Random Glucose 86 72 70-99 mg/dl Calcium Level 8.0 7.5 8.5-10.1 mg/dl Total Bilirubin 0.6 0.2-1 mg/dl Direct Bilirubin 0.2 0-0.2 mg/dl Aspartate Amino Transf (AST/SGOT) 116 15-37 U/L Alanine Aminotransferase (ALT/SGPT) 55 12-78 U/L Alkaline Phosphatase 99 45-117 U/L Total Creatine Kinase 622 590 39-308 U/L Creatine Kinase MB 4.0 3.0 0.5-3.6 ng/ml Creatine Kinase MB Ratio 0.6 0.5 0-3.0 Troponin I < 0.015 0.018 0-0.045 ng/ml Total Protein 6.8 6.4-8.2 gm/dl Albumin 3.3 3.4-5.0 gm/dl Vitamin B12 Level 533 211-911 pg/mL Folate > 24.00 >5.38 ng/mL Red Blood Cell Morphology Unremarkable Magnesium Level 1.6 1.8-2.4 mg/dl Test 07/06/16 16:43 07/06/16 17:40 Range/Units Prothrombin Time 10.9 9.0-12.0 SECONDS Prothromb Time International Ratio 1.0 0.9-1.1 Urine Color YELLOW Urine Appearance CLEAR CLEAR Urine pH 6.0 4.5-7.5 Urine Specific [place] 1.023 1.000-1.030 Urine Protein TRACE NEG Urine Glucose (UA) NEG NEG Urine Ketones 2+ NEG Urine Occult Blood NEG NEG Urine Nitrite NEG NEG Urine Bilirubin NEG NEG Urine Urobilinogen NEG NEG Urine Leukocyte Esterase NEG NEG Urine WBC (Auto) 1-5 0-5 /hpf Urine RBC (Auto) 0-4 0-4 /hpf Urine Hyaline Casts (Auto) 0 0-5 /lpf Urine Epithelial Cells (Auto) 10-20 0-5 /lpf Urine Bacteria (Auto) NEG NEG Microbiology Results 07/06/16 Blood Culture, Received Pending 07/06/16 Blood Culture, Received Pending
[2016-07-06] MEDS: LORAZEPAM INJ 1 MG in SYRINGE 0.5 ML IV PRN ×2 (19:21→22:34)
[2016-07-06] MEDS: ACETAMINOPHEN 325 MG TAB PO PRN (19:33)
--- NOTE | 2016-07-06 20:17 | ORTHOPEDIC CONSULTATION ---
DATE OF CONSULTATION: 07/06/2016 HISTORY OF PRESENT ILLNESS: A 50-year-old male consulted with regard to left shoulder pain. The patient was examined. He is comfortable in bed, not wearing his sling. Distal neurological exam is intact. Shoulder is moderately swollen. No deformity. The patient was placed back into his sling in appropriate position. Radiographs reviewed demonstrate a distal third clavicle fracture; it is between the AC joint and the coracoclavicular ligaments with the coracoclavicular ligaments so being intact and no superior migration of the medial fragment. Treatment in this individual will be a sling. The patient could be followed as an outpatient upon discharge from hospital.
[2016-07-06] MEDS: MAGNESIUM OXIDE 400 MG TAB PO SCH (21:37)
[2016-07-07] VITALS (61 sets, daily range): BP systolic 86–189; BP diastolic 51–101; PULSE 60–129; TEMP 36.2–39.4; O2SAT 87–100
[2016-07-07] MEDS: NICOTINE 14 MG/24 HR TDSY TD SCH ×2 (00:30→09:00)
[2016-07-07] MEDS: LORAZEPAM INJ 1 MG in SYRINGE 0.5 ML IV PRN ×2 (00:37→02:28)
[2016-07-07] MEDS: MoRPHine SULFATE 4 MG/ML 1 ML CARP\\VIAL IV PRN (01:07)
[2016-07-07] MEDS: PIPERACILL/TAZOBAC IV 3.375 GM in DEXTROSE 5% 100ML 100 ML IV SCH ×3 (02:05→18:14)
--- NOTE | 2016-07-07 02:39 | Progress Note ---
Progress Note attending addendum: notified by RN that patient was tachypneic on exam, patient appears weak, oriented to person denies shortness of breath VS noted and reviewed oriented x 1 , not in distress, speaks in sentences with no effort nor accessory muscle use but tachypneic tachycardic, regular rhythm, no murmurs decreased breath sounds on the left, no wheeze non distended, soft, nontender no bipedal edema, erythema, warmth no neuro deficits ALCOHOL WITHDRAWAL POSSIBLE SEPSIS SECONDARY TO PNEUMONIA Librium taper and Ativan IV PRN added CXR ordered: (+) new right lower lobe infiltrate Jesse Izaguirre IV, Nebs added Romario Ratliff MD
[2016-07-07] MEDS ORDERED: CHLORDIAZEPOXIDE 25 MG CAP PO SCH (02:45)
[2016-07-07] MEDS ORDERED: LEVALBUTEROL/IPRATROPIUM NEB INH SCH (02:45)
[2016-07-07] MEDS ORDERED: VANCOMYCIN CONSULT ACTIVE PRN (02:45)
[2016-07-07 02:54] LABS: HEMATOCRIT 30.3 % (42-52); MEAN CELL VOLUME 93.2 fL (80-100); MEAN CORPUSCULAR HEMOGLOBIN 34.5 pg (25-34); RED BLOOD COUNT 3.25 M/uL (4.7-6.1)
[2016-07-07] MEDS ORDERED: VANCOMYCIN INJ 1,750 MG in SODIUM CHLORIDE 0.9% 500ML 500 ML IV SCH (03:00)
[2016-07-07 03:13] LABS: BUN/CREATININE RATIO 11.4 (10-20); CREATININE 0.52 mg/dl (0.60-1.40); MAGNESIUM 1.5 mg/dl (1.8-2.4); MEAN PLATELET VOLUME 10.9 fL (7.4-10.4); PLATELET COUNT 51 K/uL (130-400); POTASSIUM 3.2 mmol/L (3.5-5.1)
[2016-07-07] MEDS: CHLORDIAZEPOXIDE 25MG 1ST DOSE PO SCH ×4 (03:29→20:47)
[2016-07-07] MEDS: IPRATROPIUM BROMIDE NEB SOLN 0.02% 2.5 ML VIAL INH SCH ×3 (03:36→11:10)
[2016-07-07] MEDS: LEVALBUTEROL 1.25MG/0.5ML NEB INH SCH ×3 (03:36→11:10)
[2016-07-07 03:40] LABS: CALCIUM 7.2 mg/dl (8.5-10.1)
[2016-07-07 03:45] LABS: BASO % 0.1 %; BASO ABS # 0.01 K/uL (0-0.2); COMPLETE YES; HYPOSEGMENTED POLYS 1+; IG% 1.2 %; LYMPH % 3.4 %; LYMPH ABS # 0.36 K/uL (1.2-3.4); MONO % 9.1 %; NEUT % 86.2 %
[2016-07-07] MEDS ORDERED: POT PHOSPHATE MONOBASIC W/ SOD TAB PO ONE (04:03)
[2016-07-07] MEDS ORDERED: MAGNESIUM SULFATE 1GM / D5W 1 GM in PREMIXED IN D5W 100 ML IV SCH (04:15)
[2016-07-07] MEDS ORDERED: POTASSIUM CHLORIDE 20 MEQ TABCR PO ONE (04:15)
[2016-07-07] MEDS: SODIUM CHLORIDE 0.9% 1000ML 1,000 ML IV SCH ×3 (04:26→17:39)
[2016-07-07] MEDS: GABAPENTIN 600MG Q8H DOSE PO SCH ×3 (05:34→20:48)
[2016-07-07] MEDS: LORAZEPAM 2 MG/ML 1 ML VIAL IV PRN ×5 (05:38→16:02)
[2016-07-07] MEDS ORDERED: LEVOFLOXACIN / D5W 500 MG in PREMIXED IN D5W 100 ML IV SCH (06:00)
--- NOTE | 2016-07-07 06:38 | DIAGNOSTIC IMAGING REPORT ---
CHEST ONE VIEW PORTABLE CLINICAL HISTORY: Tachypnea COMPARISON STUDY: Chest radiograph July 06, 2016. FINDINGS: Multiple acute left-sided rib fractures are again noted. There is no pneumothorax. A small to moderate left pleural effusion is similar to exam of July 06, 2016. There is associated left basilar opacity. Right lower lung airspace opacity has developed. There is no evidence of pulmonary edema. A mildly displaced distal left clavicular fracture is again noted. IMPRESSION: 1. Redemonstration of multiple acute left-sided rib fractures. No pneumothorax. 2. No significant change in a small to moderate left pleural effusion which may reflect a hemothorax given recent trauma. 3. Interval development of right lower lung airspace opacity which could reflect pneumonia or atelectasis. Electronically signed by: Kalin Roberts M.D. 07/07/2016 6:37 AM
[2016-07-07] MEDS: MAGNESIUM OXIDE 400 MG TAB PO SCH ×2 (09:00→20:48)
[2016-07-07] MEDS: THIAMINE HCL 100 MG TAB PO SCH (09:00)
[2016-07-07] MEDS: POT PHOSPHATE MONOBASIC W/ SOD TAB PO SCH ×4 (09:00→20:48)
--- NOTE | 2016-07-07 09:38 | Pharmacy Progress Note ---
Pharmacy Antibiotic Consult Date of Service: Jul 07, 2016. Pharmacy Dosing Scope Pharmacy is consulted to initiate vancomycin and zosyn IV dosing therapy, order appropriate labs and adjust drug dose/frequency. Subjective The patient is a 50 year old male admitted on Jul 06, 2016 at 13:12. Objective Height (Feet): 5 Height (Inches): 11.00 Weight (Kilograms): 70.000 Lab Results (24hrs): Laboratory Tests Test 07/07/16 02:46 BUN/Creatinine Ratio 11.4 Blood Urea Nitrogen 6 mg/dl Creatinine 0.52 mg/dl White Blood Count 10.60 K/uL Red Blood Count 3.25 M/uL Hemoglobin 11.2 g/dL Hematocrit 30.3 % Mean Corpuscular Volume 93.2 fL Mean Corpuscular Hemoglobin 34.5 pg Mean Corpuscular Hemoglobin Concent 37.0 g/dl Platelet Count 51 K/uL Mean Platelet Volume 10.9 fL Neutrophils (%) (Auto) 86.2 % Lymphocytes (%) (Auto) 3.4 % Monocytes (%) (Auto) 9.1 % Eosinophils (%) (Auto) 0.0 % Basophils (%) (Auto) 0.1 % Neutrophils # (Auto) 9.14 K/uL Lymphocytes # (Auto) 0.36 K/uL Monocytes # (Auto) 0.96 K/uL Eosinophils # (Auto) 0.00 K/uL Basophils # (Auto) 0.01 K/uL Micro Results: Item Value Date Time Blood Culture Received 07/06/16 1120 Blood Pending Blood Culture Received 07/06/16 1115 Blood Pending Assessment & Plan Pharmacy consulted to start vancomycin and zosyn for possible sepsis secondary to pneumonia. Of note, levaquin also ordered. BC x 2 have been ordered and are pending. Vancomycin: * LD: 1750 mg (~25 mg/kg) x 1 given * Will start MD of 1000 mg (~14 mg/kg) iv q 8 hrs to achieve an estimated trough ~17 mcg/ml (goal 15-20 mcg/ml for sepsis/PNA) * Estimated kinetics: t1/2~6.4 hrs, ke ~0.108 hr-1, 70 kg (wt patient reported) ; kinetics based upon a max CrCl ~125 ml/min (actual CrCl ~166 ml/min) * Will obtain a trough prior to the 1200 dose on 07/08 to ensure therapeutic and adjust as necessary Zosyn: * 3.375 gm iv q 8 hrs is appropriate for CrCl >20 ml/min - no adjustments needed Pharmacy will continue to follow and will adjust dose/frequency as necessary. Thank you
--- NOTE | 2016-07-07 10:46 | Pulmonology Progress Note ---
Pulmonary Progress Note Date of Service Jul 07, 2016. Attending Dr. julius Murillo Subjective Patient obtunded Objective Patient obtunded only answering to name. Chest x-ray: Multiple fractures left side and opacification of the costophrenic angle of the left hemithorax and increasing infiltrate right lower lobe Physical exam: SaO2 on 3 L 90% Gen.: Patient obtunded Respiratory: Decreased breath sounds left lower lobe unable to fully auscultate as patient has severe pain with any type of motion Cardiac: S1-S2: No murmurs rubs or gallops appreciated Skin: Notable frostbite distal appendages Assessment & Plan 50-year-old alcoholic status post fall multiple rib fractures and opacification of the of the left greater than right lower lobes: #1 hemothorax: Chest x-ray and rib fractures highly consistent with possible hemothorax but this patient is to obtain the to consent for any active procedures. Leonardo most likely take multiple days for his DTs to subside at that time if blood cosmos opacification of the left lateral most likely congeal require surgical intervention at that time. #2 aspiration: Increasing opacification of the right lower lobe also suggests high risk of aspiration. Patient is currently being On aspiration precautions, antibiotics are vancomycin, Zosyn and levofloxacin. At this time infectious diseases been consulted will defer to your expertise. #3 hypoxia: Most likely multifactorial with shallow breathing secondary to pain and atelectasis. Data Medications: Current Inpatient Medications Medications (Trade) Dose Ordered Sig/Jaylene Route Start Time Stop Time Status Last Admin Dose Admin Tramadol HCl 50 mg 50 mg Q4H PRN PO 07/05/16 21:30 08/04/16 21:29 Sodium Chloride (Nss 1000ml) 1,000 ml @ 150 mls/hr Q6H40M IV 07/06/16 00:00 08/05/16 00:00 07/07/16 04:26 150 MLS/HR Clonidine HCl (Catapres Tab) 0.1 mg Q6H PRN PO 07/05/16 21:30 08/04/16 21:29 07/06/16 23:54 0.1 MG Thiamine HCl (Vitamin B-1 Tab) 100 mg Q24H PO 07/06/16 09:00 08/05/16 08:59 07/06/16 09:00 100 MG Nicotine (Nicoderm Cq 14MG Patch) 1 patch QAM TD 07/06/16 09:00 08/05/16 08:59 07/07/16 00:30 1 PATCH Miscellaneous (Remove Nicoderm Patch) 1 ea HS N/A 07/06/16 21:00 08/05/16 20:59 Oxycodone/ Acetaminophen (Percocet 5-325MG Tab) 1 tab Q4H PRN PO 07/05/16 23:15 07/19/16 23:14 07/06/16 14:07 1 TAB Morphine Sulfate (MoRPHine SULFATE INJ) 3 mg Q6H PRN IV 07/05/16 23:15 07/19/16 23:14 07/07/16 01:07 3 MG Miscellaneous (Iv Fluids Completed) 1 ea PRN PRN N/A 07/05/16 23:30 07/05/17 23:29 Gabapentin (Neurontin Tab) 600 mg Q8H PO 07/07/16 06:00 07/07/16 22:01 Gabapentin (Neurontin Tab) 600 mg Q12H PO 07/08/16 08:00 07/08/16 20:01 Gabapentin (Neurontin Tab) 600 mg Q24H PO 07/09/16 08:00 07/09/16 08:01 Acetaminophen 650 mg 650 mg Q4H PRN PO 07/06/16 01:30 08/05/16 01:29 07/06/16 19:33 650 MG Piperacillin Sod/ Tazobactam Sod/ Dextrose (Zosyn Iv/D5 100ml) 115 ml @ 28.75 mls/ hr Q8@0200,1000,1800 IV 07/06/16 18:00 07/16/16 17:59 07/07/16 02:05 28.75 MLS/HR Piperacillin Sod/ Tazobactam Sod (Consult) 1 ea UD PRN N/A 07/06/16 11:30 08/05/16 11:29 Miconazole Nitrate (Desenex Powder) 1 appln PRN PRN EXT 07/06/16 12:30 08/05/16 12:29 07/06/16 17:56 1 APPLN Magnesium Oxide 400 mg 400 mg BID PO 07/06/16 21:00 08/05/16 20:59 07/06/16 21:37 400 MG Lorazepam/Syringe (Ativan Inj/ Syringe) 1 ml @ 0.5 mls/min Q2HWA PRN IV 07/06/16 19:00 08/05/16 18:59 07/07/16 02:28 0.5 MLS/MIN Lorazepam (Ativan Inj) 3 mg Q1H PRN IV 07/07/16 02:45 08/06/16 02:44 07/07/16 09:19 3 MG Vancomycin HCl 1 ea 1 ea UD PRN N/A 07/07/16 02:45 08/06/16 02:44 Levofloxacin/Prmx (Levaquin / D5W/ Premixed D5W) 100 ml @ 100 mls/hr Q24H IV 07/07/16 06:00 07/17/16 05:59 07/07/16 06:27 100 MLS/HR Chlordiazepoxide (Librium Cap) 25 mg Q6H PO 07/07/16 03:00 07/07/16 21:01 07/07/16 09:07 25 MG Chlordiazepoxide (Librium Cap) 25 mg Q8H PO 07/08/16 06:00 07/08/16 22:01 Chlordiazepoxide (Librium Cap) 10 mg Q8H PO 07/09/16 06:00 07/09/16 22:01 Chlordiazepoxide (Librium Cap) 5 mg Q12H PO 07/10/16 08:00 07/10/16 20:01 Ipratropium [place] (Atrovent 0.02% 0.5MG/2.5ML Neb) 0.5 mg Q4R INH 07/07/16 04:00 08/06/16 03:59 07/07/16 07:18 0.5 MG Levalbuterol (Xopenex 1.25MG/ 0.5ML Neb) 1.25 mg Q4R INH 07/07/16 04:00 08/06/16 03:59 07/07/16 07:18 1.25 MG Potassium/ Phosphorus/Sodium 1 tab 1 tab QID PO 07/07/16 09:00 08/06/16 08:59 Vancomycin HCl/ Sodium Chloride (Vancomycin Inj/ Nss 250ml) 270 ml @ 125 mls/hr Q8H IV 07/07/16 12:00 07/16/16 11:59 I & O: 24-Hour Column 12/22/16 08:00 Intake Total 2699 ml Output Total 1375 ml Balance 1324 ml Vital Signs: Date Time Temp Pulse Resp B/P Pulse Ox O2 Delivery O2 Flow Rate FiO2 07/07/16 10:23 37.9 122 20 152/78 90 Nasal Cannula 3.0 07/07/16 10:10 37.8 119 19 151/82 90 Nasal Cannula 3.0 07/07/16 09:45 37.8 120 20 133/80 90 Nasal Cannula 3.0 07/07/16 09:15 39.4 119 21 161/88 90 Nasal Cannula 3.0 07/07/16 09:00 36.7 126 21 156/87 90 Nasal Cannula 3.0 07/07/16 08:16 37.7 122 22 173/91 92 Nasal Cannula 3.0 07/07/16 08:00 90 Nasal Cannula 07/07/16 07:37 36.2 120 21 151/84 90 Nasal Cannula 3.0 07/07/16 07:15 118 22 92 Nasal Cannula 3.0 07/07/16 07:11 37.4 118 21 150/80 92 Nasal Cannula 3.0 07/07/16 06:53 36.5 120 21 151/83 90 Nasal Cannula 3.0 07/07/16 06:28 116 23 141/78 90 Nasal Cannula 3.0 07/07/16 06:02 112 24 157/78 92 Nasal Cannula 3.0 07/07/16 05:45 36.8 114 23 152/82 92 Nasal Cannula 3.0 07/07/16 05:28 37.9 113 22 143/86 93 Nasal Cannula 3.0 07/07/16 05:10 38.2 116 25 143/79 92 Nasal Cannula 3.0 07/07/16 04:56 37.3 119 24 149/80 94 Nasal Cannula 3.0 07/07/16 04:30 37.4 121 28 151/83 92 Nasal Cannula 3.0 07/07/16 04:19 36.8 125 23 188/93 92 Nasal Cannula 3.0 07/07/16 04:00 Nasal Cannula 3.0 07/07/16 03:57 36.6 109 26 149/85 96 Nasal Cannula 3.0 07/07/16 03:37 115 22 96 Nasal Cannula 4.0 07/07/16 03:37 38.3 111 24 179/90 97 Nasal Cannula 3.0 07/07/16 03:00 36.6 126 24 151/88 87 Nasal Cannula 4.0 07/07/16 02:35 37.9 107 32 92 3.0 07/07/16 02:30 37.9 107 32 151/80 92 Nasal Cannula 3.0 07/07/16 02:00 37.8 110 29 140/80 92 Nasal Cannula 3.0 07/07/16 01:45 37.3 109 31 137/75 91 Nasal Cannula 3.0 07/07/16 01:29 36.4 115 30 127/67 92 Nasal Cannula 3.0 07/07/16 01:16 37.1 115 33 121/72 92 Nasal Cannula 3.0 07/07/16 00:59 37.7 115 34 148/87 92 Nasal Cannula 3.0 07/07/16 00:45 37.1 110 32 147/83 96 Nasal Cannula 3.0 07/07/16 00:33 36.7 114 18 189/95 94 Nasal Cannula 3.0 07/07/16 00:30 Nasal Cannula 3.0 07/07/16 00:21 37.2 116 18 188/101 93 Nasal Cannula 3.0 07/06/16 23:52 36.8 120 20 206/104 92 Nasal Cannula 3.0 07/06/16 23:30 37.5 110 20 156/86 92 Nasal Cannula 3.0 07/06/16 23:15 37.0 98 20 173/106 94 Nasal Cannula 3.0 07/06/16 23:01 36.7 105 24 162/96 97 Nasal Cannula 3.0 07/06/16 22:46 37.0 98 26 148/86 97 Nasal Cannula 3.0 07/06/16 22:30 36.8 117 26 175/102 91 Nasal Cannula 3.0 07/06/16 22:07 36.6 98 18 148/87 93 Nasal Cannula 07/06/16 21:52 37.0 101 17 134/80 92 Nasal Cannula 07/06/16 21:35 36.4 98 17 113/76 90 Nasal Cannula 07/06/16 21:16 37.4 100 24 133/79 91 Nasal Cannula 3.0 07/06/16 21:03 37.9 96 24 129/80 91 Nasal Cannula 3.0 07/06/16 20:48 36.9 101 26 128/79 90 Nasal Cannula 3.0 07/06/16 20:35 39.1 99 22 120/74 92 Nasal Cannula 3.0 07/06/16 20:19 37.2 104 24 139/78 90 Nasal Cannula 3.0 07/06/16 20:05 36.7 110 26 136/85 90 Nasal Cannula 3.0 07/06/16 19:45 37.9 102 26 144/82 94 Nasal Cannula 3.0 07/06/16 19:31 38.6 99 26 153/85 93 Nasal Cannula 3.0 07/06/16 19:30 Nasal Cannula 3.0 07/06/16 19:19 37.8 100 24 177/90 93 Nasal Cannula 3.0 07/06/16 19:01 37.6 101 20 138/82 93 Nasal Cannula 3.0 07/06/16 18:45 37.8 103 26 159/89 95 Nasal Cannula 3.0 07/06/16 18:25 37.4 116 24 192/102 93 Nasal Cannula 3.0 07/06/16 17:50 38.0 101 24 196/111 94 Nasal Cannula 3.0 07/06/16 15:22 39.1 93 18 128/77 93 Nasal Cannula 3.0 07/06/16 14:42 38.9 99 20 142/83 91 Nasal Cannula 2.0 07/06/16 12:24 37.8 07/06/16 11:32 39.3 Laboratory Results: Last 24 Hours Test 07/06/16 16:43 07/06/16 17:40 07/07/16 02:46 Prothrombin Time 10.9 SECONDS Prothromb Time International Ratio 1.0 Urine Color YELLOW Urine Appearance CLEAR Urine pH 6.0 Urine Specific [place] 1.023 Urine Protein TRACE Urine Glucose (UA) NEG Urine Ketones 2+ Urine Occult Blood NEG Urine Nitrite NEG Urine Bilirubin NEG Urine Urobilinogen NEG Urine Leukocyte Esterase NEG Urine WBC (Auto) 1-5 /hpf Urine RBC (Auto) 0-4 /hpf Urine Hyaline Casts (Auto) 0 /lpf Urine Epithelial Cells (Auto) 10-20 /lpf Urine Bacteria (Auto) NEG White Blood Count 10.60 K/uL Red Blood Count 3.25 M/uL Hemoglobin 11.2 g/dL Hematocrit 30.3 % Mean Corpuscular Volume 93.2 fL Mean Corpuscular Hemoglobin 34.5 pg Mean Corpuscular Hemoglobin Concent 37.0 g/dl Platelet Count 51 K/uL Mean Platelet Volume 10.9 fL Neutrophils (%) (Auto) 86.2 % Lymphocytes (%) (Auto) 3.4 % Monocytes (%) (Auto) 9.1 % Eosinophils (%) (Auto) 0.0 % Basophils (%) (Auto) 0.1 % Neutrophils # (Auto) 9.14 K/uL Lymphocytes # (Auto) 0.36 K/uL Monocytes # (Auto) 0.96 K/uL Eosinophils # (Auto) 0.00 K/uL Basophils # (Auto) 0.01 K/uL RDW Standard Deviation 40.2 fL RDW Coefficient of Variation 11.8 % Immature Granulocyte % (Auto) 1.2 % Immature Granulocyte # (Auto) 0.13 K/uL Hyposegmented Neutrophils 1+ Sodium Level 129 mmol/L Potassium Level 3.2 mmol/L Chloride Level 89 mmol/L Carbon Dioxide Level 28 mmol/L Anion Gap 12.0 mmol/L Blood Urea Nitrogen 6 mg/dl Creatinine 0.52 mg/dl Est Creatinine Clear Calc Drug Dose 166.4 ml/min Estimated GFR () 143.1 Estimated GFR (Non- 123.5 BUN/Creatinine Ratio 11.4 Random Glucose 97 mg/dl Lactic Acid Level 1.7 mmol/L Calcium Level 7.2 mg/dl Phosphorus Level 2.0 mg/dl Magnesium Level 1.5 mg/dl Total Bilirubin 1.4 mg/dl Aspartate Amino Transf (AST/SGOT) 77 U/L Alanine Aminotransferase (ALT/SGPT) 38 U/L Alkaline Phosphatase 65 U/L Total Protein 5.7 gm/dl Albumin 2.8 gm/dl Globulin 2.9 gm/dl Albumin/Globulin Ratio 1.0
--- NOTE | 2016-07-07 11:24 | Medical Consult ---
Consultation Date of Consultation: Jul 07, 2016. Attending Physician: Marcus Dalton MD Reason for Consultation: Black foot History of Present Illness Patient is a 50 yo homeless, alcoholic male who presented to the ED with concerns of left-sided rib pain after suffering a fall. The patient fell from a bed at the homeless senior living at which he was staying, and was also experiencing mild SOB on admission. Since admission, the patient did have multiple Chest X- Rays. His initial Rib X-Ray showed acute displaced fractures of the left fifth and sixth ribs with nondisplaced fractures of the left third, fourth, and seventh ribs. Left shoulder X-Ray showed mildly displaced acute fracture of the distal left clavicle as well. These images were viewed by myself as well. Chest X-Ray today shows no pneumothorax but a potential hemothorax along with a small to moderate left pleural effusion and interval development of right lower lung airspace opacity. The patient is very lethargic and obtunded today during exam. He is unable to answer review of systems questions. Blood cultures are pending. His WBC count has been within normal, but he has been noted to have increase Neutrophils on differential up to 9.14 today. He is also thrombocytopenic with a Platelet count today of 51. He has had on and off fever since admission up to 39.4 C even today. He was empirically placed on IV Vancomycin, Levaquin, and Zosyn. He has a catheter in currently. He had a large, liquid bowel movement over night according to nursing records. The patient was placed in a sling by orthopedics for his left clavicle fracture. He was noted to have a black area on his right foot along with a foul odor from this area which is the reason for ID consultation- it is noted also that the patient denied foot exam on admission. Information about this patient has been taken from previous records and discussion with Dr. Dalton, Dr. Murillo, and Abran, the patient's nurse today due to patient lethargy. Past Medical/Surgical History Medical Problems: (1) Alcohol dependence Status: Acute (2) Closed left clavicular fracture Status: Acute (3) Fall as cause of accidental injury in residential institution as place of occurrence Status: Acute Medical Problems: (1) Alcoh Dep Nec/Nos-Unspec (2) Chest pain (3) Fever (4) Fracture Calcaneus-Close (5) Hypertension Nos (6) Hypoxia (7) Sprain Of Ankle Nos Family History Noncontributory Social History Smoking Status: Current Every Day Smoker Marital Status: single Housing Status: other (homeless) Occupation Status: unemployed Allergies Coded Allergies: Penicillins (Unverified Adverse Reaction, Mild, TIRED, 07/06/16) Home Medications Reported Home Medications Medications Dose Route/Sig Max Daily Dose Days Date Category No Active Prescriptions or Reported Medications Rx Current Inpatient Medications Current Inpatient Medications Medications (Trade) Dose Ordered Sig/Jaylene Route Start Time Stop Time Status Last Admin Dose Admin Tramadol HCl 50 mg 50 mg Q4H PRN PO 07/05/16 21:30 08/04/16 21:29 Sodium Chloride (Nss 1000ml) 1,000 ml @ 150 mls/hr Q6H40M IV 07/06/16 00:00 08/05/16 00:00 07/07/16 04:26 150 MLS/HR Clonidine HCl (Catapres Tab) 0.1 mg Q6H PRN PO 07/05/16 21:30 08/04/16 21:29 07/06/16 23:54 0.1 MG Thiamine HCl (Vitamin B-1 Tab) 100 mg Q24H PO 07/06/16 09:00 08/05/16 08:59 07/06/16 09:00 100 MG Nicotine (Nicoderm Cq 14MG Patch) 1 patch QAM TD 07/06/16 09:00 08/05/16 08:59 07/07/16 00:30 1 PATCH Miscellaneous (Remove Nicoderm Patch) 1 ea HS N/A 07/06/16 21:00 08/05/16 20:59 Oxycodone/ Acetaminophen (Percocet 5-325MG Tab) 1 tab Q4H PRN PO 07/05/16 23:15 07/19/16 23:14 07/06/16 14:07 1 TAB Morphine Sulfate (MoRPHine SULFATE INJ) 3 mg Q6H PRN IV 07/05/16 23:15 07/19/16 23:14 07/07/16 01:07 3 MG Miscellaneous (Iv Fluids Completed) 1 ea PRN PRN N/A 07/05/16 23:30 07/05/17 23:29 Gabapentin (Neurontin Tab) 600 mg Q8H PO 07/07/16 06:00 07/07/16 22:01 Gabapentin (Neurontin Tab) 600 mg Q12H PO 07/08/16 08:00 07/08/16 20:01 Gabapentin (Neurontin Tab) 600 mg Q24H PO 07/09/16 08:00 07/09/16 08:01 Acetaminophen 650 mg 650 mg Q4H PRN PO 07/06/16 01:30 08/05/16 01:29 07/06/16 19:33 650 MG Piperacillin Sod/ Tazobactam Sod/ Dextrose (Zosyn Iv/D5 100ml) 115 ml @ 28.75 mls/ hr Q8@0200,1000,1800 IV 07/06/16 18:00 07/16/16 17:59 07/07/16 02:05 28.75 MLS/HR Piperacillin Sod/ Tazobactam Sod (Consult) 1 ea UD PRN N/A 07/06/16 11:30 08/05/16 11:29 Miconazole Nitrate (Desenex Powder) 1 appln PRN PRN EXT 07/06/16 12:30 08/05/16 12:29 07/06/16 17:56 1 APPLN Magnesium Oxide 400 mg 400 mg BID PO 07/06/16 21:00 08/05/16 20:59 07/06/16 21:37 400 MG Lorazepam/Syringe (Ativan Inj/ Syringe) 1 ml @ 0.5 mls/min Q2HWA PRN IV 07/06/16 19:00 08/05/16 18:59 07/07/16 02:28 0.5 MLS/MIN Lorazepam (Ativan Inj) 3 mg Q1H PRN IV 07/07/16 02:45 08/06/16 02:44 07/07/16 11:00 2 MG Vancomycin HCl (Consult) 1 ea UD PRN N/A 07/07/16 02:45 08/06/16 02:44 Chlordiazepoxide (Librium Cap) 25 mg Q6H PO 07/07/16 03:00 07/07/16 21:01 07/07/16 09:07 25 MG Chlordiazepoxide (Librium Cap) 25 mg Q8H PO 07/08/16 06:00 07/08/16 22:01 Chlordiazepoxide (Librium Cap) 10 mg Q8H PO 07/09/16 06:00 07/09/16 22:01 Chlordiazepoxide (Librium Cap) 5 mg Q12H PO 07/10/16 08:00 07/10/16 20:01 Ipratropium Hendricks (Atrovent 0.02% 0.5MG/2.5ML Neb) 0.5 mg Q4R INH 07/07/16 04:00 08/06/16 03:59 07/07/16 11:10 0.5 MG Levalbuterol (Xopenex 1.25MG/ 0.5ML Neb) 1.25 mg Q4R INH 07/07/16 04:00 08/06/16 03:59 07/07/16 11:10 1.25 MG Potassium/ Phosphorus/Sodium 1 tab 1 tab QID PO 07/07/16 09:00 08/06/16 08:59 Vancomycin HCl/ Sodium Chloride (Vancomycin Inj/ Nss 250ml) 270 ml @ 125 mls/hr Q8H IV 07/07/16 12:00 07/16/16 11:59 Review of Systems Unable to obtain ROS due to patient state Physical Exam Date Time Temp Pulse Resp B/P Pulse Ox O2 Delivery O2 Flow Rate FiO2 07/07/16 11:15 38.9 128 22 161/97 90 Nasal Cannula 3.0 07/07/16 11:11 122 26 89 Nasal Cannula 3.0 07/07/16 11:00 39.4 119 19 156/90 92 Nasal Cannula 3.0 07/07/16 10:50 159/81 07/07/16 10:48 37.3 07/07/16 10:42 39.2 119 20 147/73 91 Nasal Cannula 3.0 07/07/16 10:23 37.9 122 20 152/78 90 Nasal Cannula 3.0 07/07/16 10:10 37.8 119 19 151/82 90 Nasal Cannula 3.0 07/07/16 09:45 37.8 120 20 133/80 90 Nasal Cannula 3.0 07/07/16 09:15 39.4 119 21 161/88 90 Nasal Cannula 3.0 07/07/16 09:00 36.7 126 21 156/87 90 Nasal Cannula 3.0 07/07/16 08:16 37.7 122 22 173/91 92 Nasal Cannula 3.0 07/07/16 08:00 90 Nasal Cannula 07/07/16 07:37 36.2 120 21 151/84 90 Nasal Cannula 3.0 07/07/16 07:15 118 22 92 Nasal Cannula 3.0 07/07/16 07:11 37.4 118 21 150/80 92 Nasal Cannula 3.0 07/07/16 06:53 36.5 120 21 151/83 90 Nasal Cannula 3.0 07/07/16 06:28 116 23 141/78 90 Nasal Cannula 3.0 07/07/16 06:02 112 24 157/78 92 Nasal Cannula 3.0 07/07/16 05:45 36.8 114 23 152/82 92 Nasal Cannula 3.0 07/07/16 05:28 37.9 113 22 143/86 93 Nasal Cannula 3.0 07/07/16 05:10 38.2 116 25 143/79 92 Nasal Cannula 3.0 07/07/16 04:56 37.3 119 24 149/80 94 Nasal Cannula 3.0 07/07/16 04:30 37.4 121 28 151/83 92 Nasal Cannula 3.0 07/07/16 04:19 36.8 125 23 188/93 92 Nasal Cannula 3.0 07/07/16 04:00 Nasal Cannula 3.0 07/07/16 03:57 36.6 109 26 149/85 96 Nasal Cannula 3.0 07/07/16 03:37 115 22 96 Nasal Cannula 4.0 07/07/16 03:37 38.3 111 24 179/90 97 Nasal Cannula 3.0 07/07/16 03:00 36.6 126 24 151/88 87 Nasal Cannula 4.0 07/07/16 02:35 37.9 107 32 92 3.0 07/07/16 02:30 37.9 107 32 151/80 92 Nasal Cannula 3.0 07/07/16 02:00 37.8 110 29 140/80 92 Nasal Cannula 3.0 07/07/16 01:45 37.3 109 31 137/75 91 Nasal Cannula 3.0 07/07/16 01:29 36.4 115 30 127/67 92 Nasal Cannula 3.0 07/07/16 01:16 37.1 115 33 121/72 92 Nasal Cannula 3.0 07/07/16 00:59 37.7 115 34 148/87 92 Nasal Cannula 3.0 07/07/16 00:45 37.1 110 32 147/83 96 Nasal Cannula 3.0 07/07/16 00:33 36.7 114 18 189/95 94 Nasal Cannula 3.0 07/07/16 00:30 Nasal Cannula 3.0 07/07/16 00:21 37.2 116 18 188/101 93 Nasal Cannula 3.0 07/06/16 23:52 36.8 120 20 206/104 92 Nasal Cannula 3.0 07/06/16 23:30 37.5 110 20 156/86 92 Nasal Cannula 3.0 07/06/16 23:15 37.0 98 20 173/106 94 Nasal Cannula 3.0 07/06/16 23:01 36.7 105 24 162/96 97 Nasal Cannula 3.0 07/06/16 22:46 37.0 98 26 148/86 97 Nasal Cannula 3.0 07/06/16 22:30 36.8 117 26 175/102 91 Nasal Cannula 3.0 07/06/16 22:07 36.6 98 18 148/87 93 Nasal Cannula 07/06/16 21:52 37.0 101 17 134/80 92 Nasal Cannula 07/06/16 21:35 36.4 98 17 113/76 90 Nasal Cannula 07/06/16 21:16 37.4 100 24 133/79 91 Nasal Cannula 3.0 07/06/16 21:03 37.9 96 24 129/80 91 Nasal Cannula 3.0 07/06/16 20:48 36.9 101 26 128/79 90 Nasal Cannula 3.0 07/06/16 20:35 39.1 99 22 120/74 92 Nasal Cannula 3.0 07/06/16 20:19 37.2 104 24 139/78 90 Nasal Cannula 3.0 07/06/16 20:05 36.7 110 26 136/85 90 Nasal Cannula 3.0 07/06/16 19:45 37.9 102 26 144/82 94 Nasal Cannula 3.0 07/06/16 19:31 38.6 99 26 153/85 93 Nasal Cannula 3.0 07/06/16 19:30 Nasal Cannula 3.0 07/06/16 19:19 37.8 100 24 177/90 93 Nasal Cannula 3.0 07/06/16 19:01 37.6 101 20 138/82 93 Nasal Cannula 3.0 07/06/16 18:45 37.8 103 26 159/89 95 Nasal Cannula 3.0 07/06/16 18:25 37.4 116 24 192/102 93 Nasal Cannula 3.0 07/06/16 17:50 38.0 101 24 196/111 94 Nasal Cannula 3.0 07/06/16 15:22 39.1 93 18 128/77 93 Nasal Cannula 3.0 07/06/16 14:42 38.9 99 20 142/83 91 Nasal Cannula 2.0 07/06/16 12:24 37.8 07/06/16 11:32 39.3 General Appearance: WD/WN, + pertinent finding (obtunded ) Head: normocephalic, atraumatic Eyes: normal inspection, sclerae normal ENT: hearing grossly normal Neck: supple, trachea midline Respiratory/Chest: chest non-tender, no respiratory distress, no accessory muscle use, + decreased breath sounds (bilateral bases) Cardiovascular: + tachycardia Abdomen/GI: normal bowel sounds, non tender, soft Back: normal inspection Extremities/Musculoskelatal: + pertinent finding (right foot with blackened, foul smelling area over the plantar aspect of the distal foot and noted into the toes. This appears to be very superficial. No active drainage during exam. No surrounding erythema. No open wound noted. Extremely long, fungal-appearing toenails. Left foot without black areas. No ulceration. No erythema) Neurologic/Psych: + disoriented (severely) Skin: + pertinent finding (blackened- as above) Laboratory Results CHEST ONE VIEW PORTABLE CLINICAL HISTORY: Tachypnea COMPARISON STUDY: Chest radiograph July 06, 2016. FINDINGS: Multiple acute left-sided rib fractures are again noted. There is no pneumothorax. A small to moderate left pleural effusion is similar to exam of July 06, 2016. There is associated left basilar opacity. Right lower lung airspace opacity has developed. There is no evidence of pulmonary edema. A mildly displaced distal left clavicular fracture is again noted. IMPRESSION: 1. Redemonstration of multiple acute left-sided rib fractures. No pneumothorax. 2. No significant change in a small to moderate left pleural effusion which may reflect a hemothorax given recent trauma. 3. Interval development of right lower lung airspace opacity which could reflect pneumonia or atelectasis. LEFT SHOULDER MIN 2 VIEWS ROUTINE CLINICAL HISTORY: Left shoulder pain. COMPARISON: None FINDINGS: Multiple acute left-sided rib fractures are noted. There is also an acute mildly displaced oblique fracture of the distal left clavicle. IMPRESSION: 1. Mildly displaced acute fracture of the distal left clavicle. 2. Multiple acute left-sided rib fractures, as shown on prior rib series. LEFT RIBS UNILATERAL WITH PA CHEST CLINICAL HISTORY: Left rib pain following fall. COMPARISON STUDY: Chest radiograph October 17, 2009. FINDINGS: There is no pneumothorax or pleural effusion. There are multiple old left lower rib fractures. There is an acute displaced and comminuted fracture of the posterior left fifth and sixth ribs. There are also nondisplaced fractures of left fourth and seventh ribs. There may be a nondisplaced fracture the left third rib. IMPRESSION: Acute displaced fractures of the left fifth and sixth ribs with nondisplaced fractures of the left third, fourth and seventh ribs. No pneumothorax. Item Value Date Time Blood Culture Received 07/06/16 1120 Blood Pending Blood Culture Received 07/06/16 1115 Blood Pending Last 24 Hours Test 07/06/16 16:43 07/06/16 17:40 07/07/16 02:46 Prothrombin Time 10.9 SECONDS Prothromb Time International Ratio 1.0 Urine Color YELLOW Urine Appearance CLEAR Urine pH 6.0 Urine Specific [place] 1.023 Urine Protein TRACE Urine Glucose (UA) NEG Urine Ketones 2+ Urine Occult Blood NEG Urine Nitrite NEG Urine Bilirubin NEG Urine Urobilinogen NEG Urine Leukocyte Esterase NEG Urine WBC (Auto) 1-5 /hpf Urine RBC (Auto) 0-4 /hpf Urine Hyaline Casts (Auto) 0 /lpf Urine Epithelial Cells (Auto) 10-20 /lpf Urine Bacteria (Auto) NEG White Blood Count 10.60 K/uL Red Blood Count 3.25 M/uL Hemoglobin 11.2 g/dL Hematocrit 30.3 % Mean Corpuscular Volume 93.2 fL Mean Corpuscular Hemoglobin 34.5 pg Mean Corpuscular Hemoglobin Concent 37.0 g/dl Platelet Count 51 K/uL Mean Platelet Volume 10.9 fL Neutrophils (%) (Auto) 86.2 % Lymphocytes (%) (Auto) 3.4 % Monocytes (%) (Auto) 9.1 % Eosinophils (%) (Auto) 0.0 % Basophils (%) (Auto) 0.1 % Neutrophils # (Auto) 9.14 K/uL Lymphocytes # (Auto) 0.36 K/uL Monocytes # (Auto) 0.96 K/uL Eosinophils # (Auto) 0.00 K/uL Basophils # (Auto) 0.01 K/uL RDW Standard Deviation 40.2 fL RDW Coefficient of Variation 11.8 % Immature Granulocyte % (Auto) 1.2 % Immature Granulocyte # (Auto) 0.13 K/uL Hyposegmented Neutrophils 1+ Sodium Level 129 mmol/L Potassium Level 3.2 mmol/L Chloride Level 89 mmol/L Carbon Dioxide Level 28 mmol/L Anion Gap 12.0 mmol/L Blood Urea Nitrogen 6 mg/dl Creatinine 0.52 mg/dl Est Creatinine Clear Calc Drug Dose 166.4 ml/min Estimated GFR () 143.1 Estimated GFR (Non- 123.5 BUN/Creatinine Ratio 11.4 Random Glucose 97 mg/dl Lactic Acid Level 1.7 mmol/L Calcium Level 7.2 mg/dl Phosphorus Level 2.0 mg/dl Magnesium Level 1.5 mg/dl Total Bilirubin 1.4 mg/dl Aspartate Amino Transf (AST/SGOT) 77 U/L Alanine Aminotransferase (ALT/SGPT) 38 U/L Alkaline Phosphatase 65 U/L Total Protein 5.7 gm/dl Albumin 2.8 gm/dl Globulin 2.9 gm/dl Albumin/Globulin Ratio 1.0 Assessment & Plan Patient with black area on the right foot which is foul smelling along with likely DT's, left rib fractures, left clavicle fracture, left pleural effusion/ possible hemothorax and possible aspiration pneumonia. He is currently on IV Zosyn, Vancomycin, and Levaquin. Will D/C Levaquin but continue other medications currently with concerns of possible foot infection and possible aspiration pneumonia. Feel that this patient very likely will need a Podiatry consultation, but will allow primary team to make that decision. Will also consult wound care provider to determine if the patient's right foot will need debridement. It appears that this area could be a superficial area of gangrene versus frostbite. Wound culture ordered if there is further drainage from this area. ID will continue to follow along. Plan: 1. Continue IV Zosyn and Vancomycin 2. D/C Levaquin 3. Wound care consult 4. Consider podiatry consult as well 5. Wound culture PROVIDER ADDENDUM: Patient examined and reviewed with Ms. Salgado. Appears that blackish area may be discoloration from dirt/soil. Otherwise agree with above assessment.
[2016-07-07 13:40] LABS: ARTERIAL BLD GAS O2 SATURATION 82.5 % (90-95); ARTERIAL BLOOD GAS BASE EXCESS 3.4 mEq/L (-9-1.8); ARTERIAL BLOOD GAS HCO3 26 mmol/L (19-24); ARTERIAL BLOOD GAS PO2 44 mm/Hg (80-95)
[2016-07-07 13:41] LABS: ALLEN TEST POS (POS); O2 ADMINISTRATION 4L
[2016-07-07 13:49] LABS: ARTERIAL BLOOD GAS pH 7.54 (7.35-7.45)
[2016-07-07] MEDS ORDERED: RAPID SEQUENCE INDUCTION BAG ONE (14:36)
[2016-07-07] MEDS ORDERED: PROPOFOL IV EMULSION 10 MG/ML 100 ML VIAL IV ONE (14:39)
--- NOTE | 2016-07-07 15:28 | Procedure Note ---
Procedure Note Procedure Date Jul 07, 2016. Procedure Description Procedure Name: Endotracheal intubation Consent obtained: emergent consent implied Time of procedure: 15:00 Performed by: attending, physician clinical science liaison Indications: therapeutic Contraindications: none Description: With patient in supine position, preoxygenated with 100% O2. Pre-medicated the patient with 2 mg of Versed, sedation achieved with a total of 300 mg of Propofol. Patient was intubated with an 8.0 cuffed ET tube. The intubation was not straight forward, patient having a very "deep" airway, successful when the blade was changed to [place] 4 from a MAC 4. Tube confirmed by color capnometry and auscultation. No teeth were removed or dislodged during the procedure Complications: none Patient tolerated procedure: well Post-procedure vital signs: reviewed and stable
[2016-07-07] MEDS: VANCOMYCIN INJ 1,000 MG in SODIUM CHLORIDE 0.9% 250ML 250 ML IV SCH ×2 (15:34→20:47)
[2016-07-07] MEDS ORDERED: DexMEDEtomidine IV DRIP IV STA (15:42)
[2016-07-07] MEDS ORDERED: MIDAZOLAM HCL 5 MG/ML 1 ML VIAL IV STA (15:49)
[2016-07-07] MEDS ORDERED: MoRPHine SULFATE 2 MG/ML CARP IV PRN (16:00)
--- NOTE | 2016-07-07 16:03 | DIAGNOSTIC IMAGING REPORT ---
CHEST ONE VIEW PORTABLE CLINICAL HISTORY: Respiratory failure COMPARISON STUDY: 07/05/2016 FINDINGS: There is been interval placement of a nasogastric tube which passes in the stomach. There is been placement of endotracheal tube which extends into the right mainstem bronchus. The tube should be withdrawn approximately 5 cm. The heart is normal in size. There are bilateral lower lobe airspace opacities. Pleural effusions cannot be excluded.[ IMPRESSION: 1. Right mainstem bronchus intubation 2. Interval placement of nasogastric tube 3. Bilateral lower lung zone airspace opacities. Possible pleural effusions. Electronically signed by: Alejandro Lucas M.D. 07/07/2016 4:02 PM
--- NOTE | 2016-07-07 16:06 | DIAGNOSTIC IMAGING REPORT ---
KUB HISTORY: NG TUBE PLACEMENT COMPARISON: None. FINDINGS: Multiple dilated gas-filled loops of large and small bowel seen throughout the abdomen. Nasogastric tube terminates in the distal stomach. Bilateral lower lobe densities/effusions. Old, healed left-sided rib fractures. No renal calculi. No ureteral calculi. No pneumoperitoneum or pneumatosis. There is a nondisplaced fracture at the left iliac crest. IMPRESSION: 1. Nondisplaced acute fracture at the left iliac crest. 2. Multiple distended loops of large and small bowel consistent with an ileus. 3. Nasogastric tube terminates in the distal stomach. Electronically signed by: Jigar Cassidy M.D. 07/07/2016 4:05 PM
[2016-07-07] MEDS: PROPOFOL IV EMULSION 10 MG/ML 100 ML VIAL IV PRN ×2 (16:07→18:16)
[2016-07-07] MEDS: DexMEDEtomidine HCL INJ 200 MCG in SODIUM CHLORIDE 0.9% 50ML 48 ML IV PRN ×3 (16:22→22:51)
[2016-07-07 16:27] LABS: ISTAT ARTERIAL BLOOD GAS HCO3 25 meq/L (19-24); ISTAT ARTERIAL BLOOD GAS PCO2 39 mmHg (35-46); ISTAT ARTERIAL BLOOD GAS PO2 168 mmHg (80-95); ISTAT ARTERIAL BLOOD GAS pH 7.42 (7.35-7.45); ISTAT CARBON DIOXIDE 26 mEq/l (24-31); ISTAT DELIVERY SYSTEM Ventilator; ISTAT FIO2 100 %; ISTAT PEEP 5; ISTAT RATE 16; ISTAT SITE L Brachial; VE 14; Vt 500
[2016-07-07] MEDS ORDERED: POTASSIUM PHOS 3 MMOL/1 ML INFUSION IV STA (16:35)
--- NOTE | 2016-07-07 16:46 | Critical Care Consultation ---
Critical Care Consultation Date of Consultation: Jul 07, 2016. Attending Physician: Marcus Dalton MD Reason for Consultation: Delirium tremens History of Present Illness 50year old male with h/o alcoholism, not following with physicians, admitted yesterday s/p fall resulting in multiple left sided ribs and clavicle fractures. Over the past 24 hrs he require multiple doses of Ativan for alcohol withdrawal , tachycardia. Also noted to be febrile. Once transferred to the ICU he was very tachypneic, agitated, confused and required urgent intubation. Noted very dry secretions accumulated in the oropharynx. Currently sedated, comfortable Social History Smoking Status: Current Every Day Smoker Marital Status: single Housing Status: other (homeless) Occupation Status: unemployed Allergies Coded Allergies: Penicillins (Unverified Adverse Reaction, Mild, TIRED, 07/06/16) Home Medications No Active Prescriptions or Reported Meds Current Inpatient Medications Current Inpatient Medications Medications (Trade) Dose Ordered Sig/Jaylene Route Start Time Stop Time Status Last Admin Dose Admin Tramadol HCl 50 mg 50 mg Q4H PRN PO 07/05/16 21:30 08/04/16 21:29 Sodium Chloride (Nss 1000ml) 1,000 ml @ 150 mls/hr Q6H40M IV 07/06/16 00:00 08/05/16 00:00 07/07/16 04:26 150 MLS/HR Clonidine HCl (Catapres Tab) 0.1 mg Q6H PRN PO 07/05/16 21:30 08/04/16 21:29 07/06/16 23:54 0.1 MG Thiamine HCl (Vitamin B-1 Tab) 100 mg Q24H PO 07/06/16 09:00 08/05/16 08:59 07/06/16 09:00 100 MG Nicotine (Nicoderm Cq 14MG Patch) 1 patch QAM TD 07/06/16 09:00 08/05/16 08:59 07/07/16 00:30 1 PATCH Miscellaneous (Remove Nicoderm Patch) 1 ea HS N/A 07/06/16 21:00 08/05/16 20:59 Oxycodone/ Acetaminophen (Percocet 5-325MG Tab) 1 tab Q4H PRN PO 07/05/16 23:15 07/19/16 23:14 07/06/16 14:07 1 TAB Morphine Sulfate (MoRPHine SULFATE INJ) 3 mg Q6H PRN IV 07/05/16 23:15 07/19/16 23:14 07/07/16 01:07 3 MG Miscellaneous (Iv Fluids Completed) 1 ea PRN PRN N/A 07/05/16 23:30 07/05/17 23:29 Gabapentin (Neurontin Tab) 600 mg Q8H PO 07/07/16 06:00 07/07/16 22:01 Gabapentin (Neurontin Tab) 600 mg Q12H PO 07/08/16 08:00 07/08/16 20:01 Gabapentin (Neurontin Tab) 600 mg Q24H PO 07/09/16 08:00 07/09/16 08:01 Acetaminophen 650 mg 650 mg Q4H PRN PO 07/06/16 01:30 08/05/16 01:29 07/06/16 19:33 650 MG Piperacillin Sod/ Tazobactam Sod/ Dextrose (Zosyn Iv/D5 100ml) 115 ml @ 28.75 mls/ hr Q8@0200,1000,1800 IV 07/06/16 18:00 07/16/16 17:59 07/07/16 10:30 28.75 MLS/HR Piperacillin Sod/ Tazobactam Sod (Consult) 1 ea UD PRN N/A 07/06/16 11:30 08/05/16 11:29 Miconazole Nitrate (Desenex Powder) 1 appln PRN PRN EXT 07/06/16 12:30 08/05/16 12:29 07/06/16 17:56 1 APPLN Magnesium Oxide 400 mg 400 mg BID PO 07/06/16 21:00 08/05/16 20:59 07/06/16 21:37 400 MG Lorazepam/Syringe (Ativan Inj/ Syringe) 1 ml @ 0.5 mls/min Q2HWA PRN IV 07/06/16 19:00 08/05/16 18:59 07/07/16 02:28 0.5 MLS/MIN Lorazepam (Ativan Inj) 3 mg Q1H PRN IV 07/07/16 02:45 08/06/16 02:44 07/07/16 11:00 2 MG Vancomycin HCl (Consult) 1 ea UD PRN N/A 07/07/16 02:45 08/06/16 02:44 Chlordiazepoxide (Librium Cap) 25 mg Q6H PO 07/07/16 03:00 07/07/16 21:01 07/07/16 09:07 25 MG Chlordiazepoxide (Librium Cap) 25 mg Q8H PO 07/08/16 06:00 07/08/16 22:01 Chlordiazepoxide (Librium Cap) 10 mg Q8H PO 07/09/16 06:00 07/09/16 22:01 Chlordiazepoxide (Librium Cap) 5 mg Q12H PO 07/10/16 08:00 07/10/16 20:01 Ipratropium Buckley (Atrovent 0.02% 0.5MG/2.5ML Neb) 0.5 mg Q4R INH 07/07/16 04:00 08/06/16 03:59 07/07/16 11:10 0.5 MG Levalbuterol (Xopenex 1.25MG/ 0.5ML Neb) 1.25 mg Q4R INH 07/07/16 04:00 08/06/16 03:59 07/07/16 11:10 1.25 MG Potassium/ Phosphorus/Sodium 1 tab 1 tab QID PO 07/07/16 09:00 08/06/16 08:59 Vancomycin HCl/ Sodium Chloride (Vancomycin Inj/ Nss 250ml) 270 ml @ 125 mls/hr Q8H IV 07/07/16 12:00 07/16/16 11:59 Review of Systems Unable to obtain secondary to being obtunded prior to intubation Physical Exam Date Time Temp Pulse Resp B/P Pulse Ox O2 Delivery O2 Flow Rate FiO2 07/07/16 13:45 39.0 119 48 180/89 91 Nasal Cannula 4.0 07/07/16 13:30 39.3 116 49 137/89 91 Nasal Cannula 4.0 07/07/16 13:12 39.4 124 52 136/79 89 Nasal Cannula 3.0 07/07/16 12:45 37.4 122 127/71 90 Nasal Cannula 3.0 07/07/16 12:30 36.8 121 52 135/72 89 Nasal Cannula 3.0 07/07/16 12:15 39.3 126 51 175/88 89 Nasal Cannula 3.0 07/07/16 12:00 90 Nasal Cannula 3.0 07/07/16 12:00 37.0 119 52 149/82 91 Nasal Cannula 3.0 07/07/16 12:00 39.1 121 52 135/81 90 Nasal Cannula 3.0 07/07/16 11:46 39.4 125 50 147/77 88 Nasal Cannula 3.0 07/07/16 11:30 39.3 129 22 122/74 90 Nasal Cannula 3.0 07/07/16 11:15 38.9 128 22 161/97 90 Nasal Cannula 3.0 07/07/16 11:11 122 26 89 Nasal Cannula 3.0 07/07/16 11:00 39.4 119 19 156/90 92 Nasal Cannula 3.0 07/07/16 10:50 159/81 07/07/16 10:48 37.3 07/07/16 10:42 39.2 119 20 147/73 91 Nasal Cannula 3.0 07/07/16 10:23 37.9 122 20 152/78 90 Nasal Cannula 3.0 07/07/16 10:10 37.8 119 19 151/82 90 Nasal Cannula 3.0 07/07/16 09:45 37.8 120 20 133/80 90 Nasal Cannula 3.0 07/07/16 09:15 39.4 119 21 161/88 90 Nasal Cannula 3.0 07/07/16 09:00 36.7 126 21 156/87 90 Nasal Cannula 3.0 07/07/16 08:16 37.7 122 22 173/91 92 Nasal Cannula 3.0 07/07/16 08:00 90 Nasal Cannula 07/07/16 07:37 36.2 120 21 151/84 90 Nasal Cannula 3.0 07/07/16 07:15 118 22 92 Nasal Cannula 3.0 07/07/16 07:11 37.4 118 21 150/80 92 Nasal Cannula 3.0 07/07/16 06:53 36.5 120 21 151/83 90 Nasal Cannula 3.0 07/07/16 06:28 116 23 141/78 90 Nasal Cannula 3.0 07/07/16 06:02 112 24 157/78 92 Nasal Cannula 3.0 07/07/16 05:45 36.8 114 23 152/82 92 Nasal Cannula 3.0 07/07/16 05:28 37.9 113 22 143/86 93 Nasal Cannula 3.0 07/07/16 05:10 38.2 116 25 143/79 92 Nasal Cannula 3.0 07/07/16 04:56 37.3 119 24 149/80 94 Nasal Cannula 3.0 07/07/16 04:30 37.4 121 28 151/83 92 Nasal Cannula 3.0 07/07/16 04:19 36.8 125 23 188/93 92 Nasal Cannula 3.0 07/07/16 04:00 Nasal Cannula 3.0 07/07/16 03:57 36.6 109 26 149/85 96 Nasal Cannula 3.0 07/07/16 03:37 115 22 96 Nasal Cannula 4.0 07/07/16 03:37 38.3 111 24 179/90 97 Nasal Cannula 3.0 07/07/16 03:00 36.6 126 24 151/88 87 Nasal Cannula 4.0 07/07/16 02:35 37.9 107 32 92 3.0 07/07/16 02:30 37.9 107 32 151/80 92 Nasal Cannula 3.0 07/07/16 02:00 37.8 110 29 140/80 92 Nasal Cannula 3.0 07/07/16 01:45 37.3 109 31 137/75 91 Nasal Cannula 3.0 07/07/16 01:29 36.4 115 30 127/67 92 Nasal Cannula 3.0 07/07/16 01:16 37.1 115 33 121/72 92 Nasal Cannula 3.0 07/07/16 00:59 37.7 115 34 148/87 92 Nasal Cannula 3.0 07/07/16 00:45 37.1 110 32 147/83 96 Nasal Cannula 3.0 07/07/16 00:33 36.7 114 18 189/95 94 Nasal Cannula 3.0 07/07/16 00:30 Nasal Cannula 3.0 07/07/16 00:21 37.2 116 18 188/101 93 Nasal Cannula 3.0 07/06/16 23:52 36.8 120 20 206/104 92 Nasal Cannula 3.0 07/06/16 23:30 37.5 110 20 156/86 92 Nasal Cannula 3.0 07/06/16 23:15 37.0 98 20 173/106 94 Nasal Cannula 3.0 07/06/16 23:01 36.7 105 24 162/96 97 Nasal Cannula 3.0 07/06/16 22:46 37.0 98 26 148/86 97 Nasal Cannula 3.0 07/06/16 22:30 36.8 117 26 175/102 91 Nasal Cannula 3.0 07/06/16 22:07 36.6 98 18 148/87 93 Nasal Cannula 07/06/16 21:52 37.0 101 17 134/80 92 Nasal Cannula 07/06/16 21:35 36.4 98 17 113/76 90 Nasal Cannula 07/06/16 21:16 37.4 100 24 133/79 91 Nasal Cannula 3.0 07/06/16 21:03 37.9 96 24 129/80 91 Nasal Cannula 3.0 07/06/16 20:48 36.9 101 26 128/79 90 Nasal Cannula 3.0 07/06/16 20:35 39.1 99 22 120/74 92 Nasal Cannula 3.0 07/06/16 20:19 37.2 104 24 139/78 90 Nasal Cannula 3.0 07/06/16 20:05 36.7 110 26 136/85 90 Nasal Cannula 3.0 07/06/16 19:45 37.9 102 26 144/82 94 Nasal Cannula 3.0 07/06/16 19:31 38.6 99 26 153/85 93 Nasal Cannula 3.0 07/06/16 19:30 Nasal Cannula 3.0 07/06/16 19:19 37.8 100 24 177/90 93 Nasal Cannula 3.0 07/06/16 19:01 37.6 101 20 138/82 93 Nasal Cannula 3.0 07/06/16 18:45 37.8 103 26 159/89 95 Nasal Cannula 3.0 07/06/16 18:25 37.4 116 24 192/102 93 Nasal Cannula 3.0 07/06/16 17:50 38.0 101 24 196/111 94 Nasal Cannula 3.0 General Appearance: + pertinent finding (Poor hygiene, intubated, unresponsive) Head: + pertinent finding (very poor dentition) Neck: supple Respiratory/Chest: + respiratory distress, + rhonchi (few, b/l), + pertinent finding (diminished bibasilar breath sounds) Cardiovascular: regular rate, rhythm, no JVD Abdomen/GI: soft Extremities/Musculoskelatal: + pertinent finding (right foot wound, possibly necrotic, foul smelling) Neurologic/Psych: + pertinent finding (very tremmulous, not following commands , but moving both sides) Laboratory Results Last 24 Hours Test 07/06/16 16:43 07/06/16 17:40 07/07/16 02:46 07/07/16 13:33 Prothrombin Time 10.9 SECONDS Prothromb Time International Ratio 1.0 Urine Color YELLOW Urine Appearance CLEAR Urine pH 6.0 Urine Specific [place] 1.023 Urine Protein TRACE Urine Glucose (UA) NEG Urine Ketones 2+ Urine Occult Blood NEG Urine Nitrite NEG Urine Bilirubin NEG Urine Urobilinogen NEG Urine Leukocyte Esterase NEG Urine WBC (Auto) 1-5 /hpf Urine RBC (Auto) 0-4 /hpf Urine Hyaline Casts (Auto) 0 /lpf Urine Epithelial Cells (Auto) 10-20 /lpf Urine Bacteria (Auto) NEG White Blood Count 10.60 K/uL Red Blood Count 3.25 M/uL Hemoglobin 11.2 g/dL Hematocrit 30.3 % Mean Corpuscular Volume 93.2 fL Mean Corpuscular Hemoglobin 34.5 pg Mean Corpuscular Hemoglobin Concent 37.0 g/dl Platelet Count 51 K/uL Mean Platelet Volume 10.9 fL Neutrophils (%) (Auto) 86.2 % Lymphocytes (%) (Auto) 3.4 % Monocytes (%) (Auto) 9.1 % Eosinophils (%) (Auto) 0.0 % Basophils (%) (Auto) 0.1 % Neutrophils # (Auto) 9.14 K/uL Lymphocytes # (Auto) 0.36 K/uL Monocytes # (Auto) 0.96 K/uL Eosinophils # (Auto) 0.00 K/uL Basophils # (Auto) 0.01 K/uL RDW Standard Deviation 40.2 fL RDW Coefficient of Variation 11.8 % Immature Granulocyte % (Auto) 1.2 % Immature Granulocyte # (Auto) 0.13 K/uL Hyposegmented Neutrophils 1+ Sodium Level 129 mmol/L Potassium Level 3.2 mmol/L Chloride Level 89 mmol/L Carbon Dioxide Level 28 mmol/L Anion Gap 12.0 mmol/L Blood Urea Nitrogen 6 mg/dl Creatinine 0.52 mg/dl Est Creatinine Clear Calc Drug Dose 166.4 ml/min Estimated GFR () 143.1 Estimated GFR (Non- 123.5 BUN/Creatinine Ratio 11.4 Random Glucose 97 mg/dl Lactic Acid Level 1.7 mmol/L Calcium Level 7.2 mg/dl Phosphorus Level 2.0 mg/dl Magnesium Level 1.5 mg/dl Total Bilirubin 1.4 mg/dl Aspartate Amino Transf (AST/SGOT) 77 U/L Alanine Aminotransferase (ALT/SGPT) 38 U/L Alkaline Phosphatase 65 U/L Total Protein 5.7 gm/dl Albumin 2.8 gm/dl Globulin 2.9 gm/dl Albumin/Globulin Ratio 1.0 Arterial Blood pH 7.54 Arterial Blood Partial Pressure CO2 30 mmHg Arterial Blood Partial Pressure O2 44 mm/Hg Arterial Blood HCO3 26 mmol/L Arterial Blood Oxygen Saturation 82.5 % Arterial Blood Base Excess 3.4 mEq/L Arterial Blood Gas Delivery 4L Raymond Test POS Diagnostic Results Last 24 Hours Test 07/06/16 16:43 07/06/16 17:40 07/07/16 02:46 07/07/16 13:33 Prothrombin Time 10.9 SECONDS Prothromb Time International Ratio 1.0 Urine Color YELLOW Urine Appearance CLEAR Urine pH 6.0 Urine Specific [place] 1.023 Urine Protein TRACE Urine Glucose (UA) NEG Urine Ketones 2+ Urine Occult Blood NEG Urine Nitrite NEG Urine Bilirubin NEG Urine Urobilinogen NEG Urine Leukocyte Esterase NEG Urine WBC (Auto) 1-5 /hpf Urine RBC (Auto) 0-4 /hpf Urine Hyaline Casts (Auto) 0 /lpf Urine Epithelial Cells (Auto) 10-20 /lpf Urine Bacteria (Auto) NEG White Blood Count 10.60 K/uL Red Blood Count 3.25 M/uL Hemoglobin 11.2 g/dL Hematocrit 30.3 % Mean Corpuscular Volume 93.2 fL Mean Corpuscular Hemoglobin 34.5 pg Mean Corpuscular Hemoglobin Concent 37.0 g/dl Platelet Count 51 K/uL Mean Platelet Volume 10.9 fL Neutrophils (%) (Auto) 86.2 % Lymphocytes (%) (Auto) 3.4 % Monocytes (%) (Auto) 9.1 % Eosinophils (%) (Auto) 0.0 % Basophils (%) (Auto) 0.1 % Neutrophils # (Auto) 9.14 K/uL Lymphocytes # (Auto) 0.36 K/uL Monocytes # (Auto) 0.96 K/uL Eosinophils # (Auto) 0.00 K/uL Basophils # (Auto) 0.01 K/uL RDW Standard Deviation 40.2 fL RDW Coefficient of Variation 11.8 % Immature Granulocyte % (Auto) 1.2 % Immature Granulocyte # (Auto) 0.13 K/uL Hyposegmented Neutrophils 1+ Sodium Level 129 mmol/L Potassium Level 3.2 mmol/L Chloride Level 89 mmol/L Carbon Dioxide Level 28 mmol/L Anion Gap 12.0 mmol/L Blood Urea Nitrogen 6 mg/dl Creatinine 0.52 mg/dl Est Creatinine Clear Calc Drug Dose 166.4 ml/min Estimated GFR () 143.1 Estimated GFR (Non- 123.5 BUN/Creatinine Ratio 11.4 Random Glucose 97 mg/dl Lactic Acid Level 1.7 mmol/L Calcium Level 7.2 mg/dl Phosphorus Level 2.0 mg/dl Magnesium Level 1.5 mg/dl Total Bilirubin 1.4 mg/dl Aspartate Amino Transf (AST/SGOT) 77 U/L Alanine Aminotransferase (ALT/SGPT) 38 U/L Alkaline Phosphatase 65 U/L Total Protein 5.7 gm/dl Albumin 2.8 gm/dl Globulin 2.9 gm/dl Albumin/Globulin Ratio 1.0 Arterial Blood pH 7.54 Arterial Blood Partial Pressure CO2 30 mmHg Arterial Blood Partial Pressure O2 44 mm/Hg Arterial Blood HCO3 26 mmol/L Arterial Blood Oxygen Saturation 82.5 % Arterial Blood Base Excess 3.4 mEq/L Arterial Blood Gas Delivery 4L Raymond Test POS CXR post intubation: IMPRESSION: 1. Right mainstem bronchus intubation 2. Interval placement of nasogastric tube 3. Bilateral lower lung zone airspace opacities. Possible pleural effusions Assessment & Plan 50 year old male with h/o alcoholism, disheveled and unkempt, with no medical follow up presents s/p fall with ribs and clavicular fractures, now in alcohol withdrawal delirium. Active problems: 1. Alcohol withdrawal delirium 2. Sepsis secondary to RLL pneumonia, possibly aspiration 3. left sided rib fractures 4. Left clavicular fracture 5. Suspected left hemothorax 6. RLE wound 7. Thrombocytopenia 8. Hyponatremia Plan: [employer]: Sedation with Propofol and Precedex drips. On Librium as well Thiamine Pulmonary: Vent support Initial CXR shows lung hyperinflation suggestive of emphysema. Bronchodilators Possible left hemothorax, monitor radiographically. May need drainage/ decortication Developing now RLL PNA. On Abx CVS: Continue iv fluids ID: Continue Zosyn and Vanc Wound care following Check sputum culture Urine for legionella Ag Renal/metabolic: Supplement Mg, K, Phos Hyponatremic. Possible liver cirrhosis as a cause, but more likely secondary to beer potomania. Continue iv fluids for now though with NS, no need for hypertonic saline GI: I suspect liver cirrhosis given poor albumin, low platelets, low sodium Start tube feedings Heme: Platelets low but stable. No obvious bleeding. Monitor DVT prophylaxis: Hold anticoagulation for the time being given thrombocytopenia. ICDs Critical care time spent excluding procedures 45 minutes
[2016-07-07] MEDS ORDERED: FIBERSOURCE HN 1000ML BAG PO PRN ×2 (17:00)
[2016-07-07] MEDS ORDERED: POTASSIUM PHOSPHATE INJ 15 MMOL in SODIUM CHLORIDE 0.9% 250ML 250 ML IV ONE (17:00)
--- NOTE | 2016-07-07 17:03 | DIAGNOSTIC IMAGING REPORT ---
CHEST ONE VIEW PORTABLE CLINICAL HISTORY: ET tube repositioning tube position COMPARISON STUDY: 4:00 PM hours same date FINDINGS: Endotracheal tube has been pulled back. It is now 2 cm above the shashank. Bibasilar atelectatic neural fusion-type change persists. No evidence of pneumothorax. IMPRESSION: Endotracheal tube is now in good position 2 cm above the shashank. Electronically signed by: Keven Vann M.D. 07/07/2016 5:02 PM
[2016-07-07] MEDS: MAGNESIUM SULFATE 1GM / D5W 1 GM in PREMIXED IN D5W 100 ML IV SCH ×2 (17:38→18:13)
[2016-07-07] MEDS ORDERED: NURSING VERBAL MED ORDER ONE (18:00)
[2016-07-07] MEDS ORDERED: ACETAMINOPHEN IV 1000MG/100ML IV PRN (18:30)
[2016-07-07] MEDS ORDERED: MIDAZOLAM HCL 5 MG/ML 2ML VIAL IV ONE (18:53)
--- NOTE | 2016-07-07 19:38 | Progress Note ---
Internal Med Progress Note Date of Service: Jul 07, 2016. Provider Documentation: SUBJECTIVE: patient presented s/p fall and rib fractures alcoholism shaky confused and disoriented still spiking temps tachycardic and tachypneic transferred to ICU and s/p intubation OBJECTIVE: Vital Signs-as noted below Exam: General-. Confused s/p intubation ENT-hard of hearing Neck-no neck masses Lungs-cta b/l no wheezing or crackles Heart-s1 and s2 heard regular rate and rhythm, no murmurs Abdomen-soft bowel sounds present no distension Extremities-no pedal edema no erythema foul smelling feet Neuro-s/p intubation and sedated Lab data as noted below. ASSESSMENT & PLAN: This is a 50-year-old male, who [facility] with a history of alcoholism, smoking and hypertension by chart history; presenting with left-sided rib/chest pains after a fall since last night. Alcohol withdrawal patient was not much responding to gabapentin protocol, iv Ativan and Librium transferred to icu and s/p intubation and Precedex drip and Diprivan will monitor. Sepsis possible pneumonia superficial skin 'gangrene of the foot iv fluids on vanco and Zosyn ID on board. Left-sided chest pain, secondary to acute left rib fractures; 4th to 7th ribs as well as left clavicle fracture secondary to accidental fall. pain control appreciate ortho input pt/ot. hemothorax possibly consulted pulmonary and plan for tapping but not able to do as patient in alcohol withdrawal Hypoxia, likely secondary to above. We will continue pulse oximetry monitoring and incentive spirometry.s/p intubation currently Hypertension history. on clonidine prn may need medications on discharge.currently hypotensive Hyponatremia of 129 today, likely secondary to dehydration. on fluids will monitor electrolyte abnormalities replaced will f/u labs Deep venous thrombosis prophylaxis: SCDs for now. DISPOSITION close monitor in ICU Vital Signs: Date Time Temp Pulse Resp B/P Pulse Ox O2 Delivery O2 Flow Rate FiO2 07/07/16 18:05 80 07/07/16 18:00 38.2 85 19 86/51 100 Mechanical Ventilator 100 07/07/16 17:00 105 25 115/59 100 Mechanical Ventilator 100 07/07/16 16:43 80 07/07/16 16:00 38.4 99 23 115/71 100 Mechanical Ventilator 100 07/07/16 16:00 Mechanical Ventilator 100 07/07/16 16:00 100 07/07/16 15:00 100 07/07/16 13:45 39.0 119 48 180/89 91 Nasal Cannula 4.0 07/07/16 13:30 39.3 116 49 137/89 91 Nasal Cannula 4.0 07/07/16 13:12 39.4 124 52 136/79 89 Nasal Cannula 3.0 07/07/16 12:45 37.4 122 127/71 90 Nasal Cannula 3.0 07/07/16 12:30 36.8 121 52 135/72 89 Nasal Cannula 3.0 07/07/16 12:15 39.3 126 51 175/88 89 Nasal Cannula 3.0 07/07/16 12:00 90 Nasal Cannula 3.0 07/07/16 12:00 37.0 119 52 149/82 91 Nasal Cannula 3.0 07/07/16 12:00 39.1 121 52 135/81 90 Nasal Cannula 3.0 07/07/16 11:46 39.4 125 50 147/77 88 Nasal Cannula 3.0 07/07/16 11:30 39.3 129 22 122/74 90 Nasal Cannula 3.0 07/07/16 11:15 38.9 128 22 161/97 90 Nasal Cannula 3.0 07/07/16 11:11 122 26 89 Nasal Cannula 3.0 07/07/16 11:00 39.4 119 19 156/90 92 Nasal Cannula 3.0 07/07/16 10:50 159/81 07/07/16 10:48 37.3 07/07/16 10:42 39.2 119 20 147/73 91 Nasal Cannula 3.0 07/07/16 10:23 37.9 122 20 152/78 90 Nasal Cannula 3.0 07/07/16 10:10 37.8 119 19 151/82 90 Nasal Cannula 3.0 07/07/16 09:45 37.8 120 20 133/80 90 Nasal Cannula 3.0 07/07/16 09:15 39.4 119 21 161/88 90 Nasal Cannula 3.0 07/07/16 09:00 36.7 126 21 156/87 90 Nasal Cannula 3.0 07/07/16 08:16 37.7 122 22 173/91 92 Nasal Cannula 3.0 07/07/16 08:00 90 Nasal Cannula 07/07/16 07:37 36.2 120 21 151/84 90 Nasal Cannula 3.0 07/07/16 07:15 118 22 92 Nasal Cannula 3.0 07/07/16 07:11 37.4 118 21 150/80 92 Nasal Cannula 3.0 07/07/16 06:53 36.5 120 21 151/83 90 Nasal Cannula 3.0 07/07/16 06:28 116 23 141/78 90 Nasal Cannula 3.0 07/07/16 06:02 112 24 157/78 92 Nasal Cannula 3.0 07/07/16 05:45 36.8 114 23 152/82 92 Nasal Cannula 3.0 07/07/16 05:28 37.9 113 22 143/86 93 Nasal Cannula 3.0 07/07/16 05:10 38.2 116 25 143/79 92 Nasal Cannula 3.0 07/07/16 04:56 37.3 119 24 149/80 94 Nasal Cannula 3.0 07/07/16 04:30 37.4 121 28 151/83 92 Nasal Cannula 3.0 07/07/16 04:19 36.8 125 23 188/93 92 Nasal Cannula 3.0 07/07/16 04:00 Nasal Cannula 3.0 07/07/16 03:57 36.6 109 26 149/85 96 Nasal Cannula 3.0 07/07/16 03:37 115 22 96 Nasal Cannula 4.0 07/07/16 03:37 38.3 111 24 179/90 97 Nasal Cannula 3.0 07/07/16 03:00 36.6 126 24 151/88 87 Nasal Cannula 4.0 07/07/16 02:35 37.9 107 32 92 3.0 07/07/16 02:30 37.9 107 32 151/80 92 Nasal Cannula 3.0 07/07/16 02:00 37.8 110 29 140/80 92 Nasal Cannula 3.0 07/07/16 01:45 37.3 109 31 137/75 91 Nasal Cannula 3.0 07/07/16 01:29 36.4 115 30 127/67 92 Nasal Cannula 3.0 07/07/16 01:16 37.1 115 33 121/72 92 Nasal Cannula 3.0 07/07/16 00:59 37.7 115 34 148/87 92 Nasal Cannula 3.0 07/07/16 00:45 37.1 110 32 147/83 96 Nasal Cannula 3.0 07/07/16 00:33 36.7 114 18 189/95 94 Nasal Cannula 3.0 07/07/16 00:30 Nasal Cannula 3.0 07/07/16 00:21 37.2 116 18 188/101 93 Nasal Cannula 3.0 07/06/16 23:52 36.8 120 20 206/104 92 Nasal Cannula 3.0 07/06/16 23:30 37.5 110 20 156/86 92 Nasal Cannula 3.0 07/06/16 23:15 37.0 98 20 173/106 94 Nasal Cannula 3.0 07/06/16 23:01 36.7 105 24 162/96 97 Nasal Cannula 3.0 07/06/16 22:46 37.0 98 26 148/86 97 Nasal Cannula 3.0 07/06/16 22:30 36.8 117 26 175/102 91 Nasal Cannula 3.0 07/06/16 22:07 36.6 98 18 148/87 93 Nasal Cannula 07/06/16 21:52 37.0 101 17 134/80 92 Nasal Cannula 07/06/16 21:35 36.4 98 17 113/76 90 Nasal Cannula 07/06/16 21:16 37.4 100 24 133/79 91 Nasal Cannula 3.0 07/06/16 21:03 37.9 96 24 129/80 91 Nasal Cannula 3.0 07/06/16 20:48 36.9 101 26 128/79 90 Nasal Cannula 3.0 07/06/16 20:35 39.1 99 22 120/74 92 Nasal Cannula 3.0 07/06/16 20:19 37.2 104 24 139/78 90 Nasal Cannula 3.0 07/06/16 20:05 36.7 110 26 136/85 90 Nasal Cannula 3.0 07/06/16 19:45 37.9 102 26 144/82 94 Nasal Cannula 3.0 07/06/16 19:31 38.6 99 26 153/85 93 Nasal Cannula 3.0 07/06/16 19:30 Nasal Cannula 3.0 Lab Results: Results Past 24 Hours Test 07/07/16 00:00 07/07/16 02:46 07/07/16 13:33 07/07/16 16:11 Range/Units White Blood Count 10.60 4.8-10.8 K/uL Red Blood Count 3.25 4.7-6.1 M/uL Hemoglobin 11.2 14.0-18.0 g/dL Hematocrit 30.3 42-52 % Mean Corpuscular Volume 93.2 80-100 fL Mean Corpuscular Hemoglobin 34.5 25-34 pg Mean Corpuscular Hemoglobin Concent 37.0 32-36 g/dl Platelet Count 51 130-400 K/uL Mean Platelet Volume 10.9 7.4-10.4 fL Neutrophils (%) (Auto) 86.2 % Lymphocytes (%) (Auto) 3.4 % Monocytes (%) (Auto) 9.1 % Eosinophils (%) (Auto) 0.0 % Basophils (%) (Auto) 0.1 % Neutrophils # (Auto) 9.14 1.4-6.5 K/uL Lymphocytes # (Auto) 0.36 1.2-3.4 K/uL Monocytes # (Auto) 0.96 0.11-0.59 K/uL Eosinophils # (Auto) 0.00 0-0.5 K/uL Basophils # (Auto) 0.01 0-0.2 K/uL RDW Standard Deviation 40.2 36.4-46.3 fL RDW Coefficient of Variation 11.8 11.5-14.5 % Immature Granulocyte % (Auto) 1.2 % Immature Granulocyte # (Auto) 0.13 0.00-0.02 K/uL Hyposegmented Neutrophils 1+ Sodium Level 129 136-145 mmol/L Potassium Level 3.2 3.5-5.1 mmol/L Chloride Level 89 98-107 mmol/L Carbon Dioxide Level 28 21-32 mmol/L Anion Gap 12.0 3-11 mmol/L Blood Urea Nitrogen 6 7-18 mg/dl Creatinine 0.52 0.60-1.40 mg/dl Est Creatinine Clear Calc Drug Dose 166.4 ml/min Estimated GFR () 143.1 Estimated GFR (Non- 123.5 BUN/Creatinine Ratio 11.4 10-20 Random Glucose 97 70-99 mg/dl Lactic Acid Level 1.7 0.4-2.0 mmol/L Calcium Level 7.2 8.5-10.1 mg/dl Phosphorus Level 2.0 2.5-4.9 mg/dl Magnesium Level 1.5 1.8-2.4 mg/dl Total Bilirubin 1.4 0.2-1 mg/dl Aspartate Amino Transf (AST/SGOT) 77 15-37 U/L Alanine Aminotransferase (ALT/SGPT) 38 12-78 U/L Alkaline Phosphatase 65 45-117 U/L Total Protein 5.7 6.4-8.2 gm/dl Albumin 2.8 3.4-5.0 gm/dl Globulin 2.9 2.5-4.0 gm/dl Albumin/Globulin Ratio 1.0 0.9-2 Arterial Blood pH 7.54 7.35-7.45 Arterial Blood Partial Pressure CO2 30 35-46 mmHg Arterial Blood Partial Pressure O2 44 80-95 mm/Hg Arterial Blood HCO3 26 19-24 mmol/L Arterial Blood Oxygen Saturation 82.5 90-95 % Arterial Blood Base Excess 3.4 -9-1.8 mEq/L Arterial Blood Gas Delivery 4L Raymond Test POS NA Blood Gas Sample Site L Brachial Bedside Blood Gas pH (LAB) 7.42 7.35-7.45 Bedside Blood Gas pCO2 (LAB) 39 35-46 mmHg Bedside Blood Gas pO2 (LAB) 168 80-95 mmHg Bedside Blood Gas HCO3 (LAB) 25 19-24 meq/L Bedside Blood Gas Total CO2 26 24-31 mEq/l Bedside Blood Gas Base Excess (LAB) 0.0 -9-1.8 meq/L Bedside Blood Gas O2 Saturation 100.0 90-95 % Oxygen Delivery Device Ventilator Bedside Oxygen Rate (breaths/min) 16 Blood Gas Minute Ventilation 14 Bedside FiO2 100 % Blood Gas Tidal Volume 500 Blood Gas PEEP 5 Microbiology Results 07/07/16 MRSA DNA Surveillance Screen, Received Pending
[2016-07-07] MEDS: IPRATROPIUM BROMIDE HFA INHALER INH SCH (20:05)
[2016-07-07] MEDS: ALBUTEROL HFA 8 GM INHALER INH SCH (20:05)
--- NOTE | 2016-07-07 20:35 | DIAGNOSTIC IMAGING REPORT ---
ULTRASOUND ART DOP LOWER EXT BILAT CLINICAL HISTORY: black foot claudication COMPARISON STUDY: None FINDINGS: Real-time as well as Doppler evaluation of the arterial structures of the lower legs was performed. Waveforms are triphasic throughout. Velocity characteristics are unremarkable. Waveforms are biphasic involving the anterior tibial arteries bilaterally. IMPRESSION: No significant stenotic process Electronically signed by: Keven Vann M.D. 07/07/2016 8:34 PM
[2016-07-07 22:52] LABS: BUN/CREATININE RATIO 9.4 (10-20); CALCIUM 6.5 mg/dl (8.5-10.1); CREATININE 0.53 mg/dl (0.60-1.40); MAGNESIUM 2.1 mg/dl (1.8-2.4)
[2016-07-07 22:53] LABS: ALB/GLOB RATIO 0.8 (0.9-2); PHOSPHORUS 2.9 mg/dl (2.5-4.9)
[2016-07-07] MEDS: NSS + 20MEQ KCL 1000ML 1,000 ML IV SCH (23:24)
[2016-07-07] MEDS: POTASSIUM CHLR 10 MEQ / WTR 10 MEQ in PREMIXED WATER 100 ML IV SCH (23:24)
[2016-07-07] MEDS ORDERED: CALCIUM GLUCONATE 10% 1,000 MG in SODIUM CHLORIDE 0.9% 50ML 50 ML IV ONE (23:30)
[2016-07-08] VITALS (30 sets, daily range): BP systolic 94–146; BP diastolic 64–90; PULSE 48–101; TEMP 35.8–38.7; O2SAT 75–100
[2016-07-08] MEDS: POTASSIUM CHLR 10 MEQ / WTR 10 MEQ in PREMIXED WATER 100 ML IV SCH ×5 (00:20→18:53)
[2016-07-08] MEDS: PIPERACILL/TAZOBAC IV 3.375 GM in DEXTROSE 5% 100ML 100 ML IV SCH ×3 (01:32→17:22)
[2016-07-08] MEDS: ALBUTEROL HFA 8 GM INHALER INH SCH ×4 (02:24→19:20)
[2016-07-08] MEDS: IPRATROPIUM BROMIDE HFA INHALER INH SCH ×4 (02:24→19:20)
[2016-07-08 03:06] LABS: HEMATOCRIT 28.7 % (42-52); MEAN CELL VOLUME 92.9 fL (80-100); MEAN CORPUSCULAR HEMOGLOBIN 33.7 pg (25-34); MEAN CORPUSCULAR HGB CONC 36.2 g/dl (32-36); RED BLOOD COUNT 3.09 M/uL (4.7-6.1); WHITE BLOOD COUNT 11.91 K/uL (4.8-10.8)
[2016-07-08 03:07] LABS: MEAN PLATELET VOLUME 10.7 fL (7.4-10.4); PLATELET COUNT 63 K/uL (130-400)
[2016-07-08 03:19] LABS: PARTIAL THROMBOPLASTIN RATIO 1.7; PROTHROMBIN TIME (PATIENT) 11.1 SECONDS (9.0-12.0)
[2016-07-08 03:30] LABS: ALB/GLOB RATIO 0.8 (0.9-2); ALKALINE PHOSPHATASE 45 U/L (45-117); ALT/SGPT 30 U/L (12-78); AST/SGOT 77 U/L (15-37); BLOOD UREA NITROGEN 5 mg/dl (7-18); BUN/CREATININE RATIO 12.5 (10-20); CARBON DIOXIDE 25 mmol/L (21-32); CHLORIDE 102 mmol/L (98-107); CREATININE 0.42 mg/dl (0.60-1.40); GLUCOSE 118 mg/dl (70-99); MAGNESIUM 2.3 mg/dl (1.8-2.4); PHOSPHORUS 2.3 mg/dl (2.5-4.9); SODIUM 137 mmol/L (136-145)
[2016-07-08 03:41] LABS: ACANTHOCYTES 1+; COMPLETE YES; DOHLE BODIES 1+; LYMPHOCYTE % 1.7 %; NEUTROPHILS % 93.1 %
[2016-07-08] MEDS: VANCOMYCIN INJ 1,000 MG in SODIUM CHLORIDE 0.9% 250ML 250 ML IV SCH ×3 (03:41→19:50)
[2016-07-08] MEDS ORDERED: POTASSIUM PHOS 3 MMOL/1 ML INFUSION IV STA ×2 (03:59→17:19)
[2016-07-08] MEDS ORDERED: POTASSIUM PHOSPHATE INJ 21 MMOL in SODIUM CHLORIDE 0.9% 500ML 500 ML IV SCH (04:30)
[2016-07-08] MEDS: CHLORDIAZEPOXIDE 25MG Q8H DOSE PO SCH ×3 (05:18→21:23)
[2016-07-08 05:36] LABS: ISTAT ALLEN TEST Pass; ISTAT ARTERIAL BLOOD GAS HCO3 21 meq/L (19-24); ISTAT ARTERIAL BLOOD GAS PCO2 33 mmHg (35-46); ISTAT ARTERIAL BLOOD GAS PO2 63 mmHg (80-95); ISTAT ARTERIAL BLOOD GAS pH 7.41 (7.35-7.45); ISTAT CARBON DIOXIDE 22 mEq/l (24-31); ISTAT DELIVERY SYSTEM Ventilator; ISTAT FIO2 35 %; ISTAT PEEP 5; ISTAT RATE 16; ISTAT SITE R Radial; VE 8.3; Vt 500
--- NOTE | 2016-07-08 07:37 | DIAGNOSTIC IMAGING REPORT ---
CHEST ONE VIEW PORTABLE CLINICAL HISTORY: Pneumonia COMPARISON STUDY: 07/07/2016 FINDINGS: There is been no significant change in the position of the nasogastric tube or endotracheal tube. The cardiac and sternal contours remain stable. There are suspected bilateral pleural effusions with associated bibasal airspace opacities.[ IMPRESSION: Stable findings Electronically signed by: Alejandro Lucas M.D. 07/08/2016 7:36 AM
[2016-07-08] MEDS: NICOTINE 14 MG/24 HR TDSY TD SCH (08:08)
[2016-07-08] MEDS: GABAPENTIN 600MG Q12H DOSE PO SCH ×2 (08:08→19:35)
[2016-07-08] MEDS: THIAMINE HCL 100 MG TAB PO SCH ×3 (08:08→22:28)
[2016-07-08] MEDS: POT PHOSPHATE MONOBASIC W/ SOD TAB PO SCH ×4 (08:09→19:48)
[2016-07-08] MEDS: MAGNESIUM OXIDE 400 MG TAB PO SCH ×2 (08:09→19:47)
[2016-07-08] MEDS: NSS + 20MEQ KCL 1000ML 1,000 ML IV SCH ×3 (08:18→21:27)
[2016-07-08 09:19] LABS: ESTIMATED AVERAGE GLUCOSE 94 mg/dl; HA1C FLAG Normal (Normal)
--- NOTE | 2016-07-08 09:59 | CONSULTATION REPORT ---
DATE OF CONSULTATION: 07/07/2016 CHIEF COMPLAINT: Discoloration right foot. HISTORY OF PRESENT ILLNESS: The patient was recently admitted to [facility] due to development of left-sided chest pain. The patient is currently in the intensive care unit in alcohol withdrawal. The patient presently is in the process of being intubated for further control of his status. The patient is unable to give any pertinent history at this time; however, it is noted that the patient does have a history of alcoholism and hypertension. PAST SURGICAL HISTORY: Unremarkable. SOCIAL HISTORY: The patient is a smoker as well as excess alcohol ingestion. MEDICATIONS: Noted in the nursing notes and were reviewed. REVIEW OF SYSTEMS: Deferred due to the patient's current mental status changes. PHYSICAL EXAMINATION: GENERAL: The patient is currently lying in a hospital bed, not appropriately responsive to any verbal commands. VITAL SIGNS: The patient's vital signs were reviewed and are currently stable with the exception of his pulse oximetry which is running in the 70-75% range. HEENT: Pupils equal and react. HEART: Regular rate and rhythm. LUNGS: Clear to auscultation. EXTREMITIES: Reveal the presence of a blackened discoloration on the plantar surface of the right foot measuring 4 x 5 x 0 cm. There is no current ulceration, erythema or fluctuance. No active drainage is present. IMPRESSION: Deep tissue injury, right foot. PLAN: At this time, the patient will be maintained in Waffle boots. Further observation of the deep tissue injury will be made over a period of time to determine the full extent and depth of the problem. Thank you.
--- NOTE | 2016-07-08 11:12 | Infectious Disease Progress Nt ---
Progress Note Date of Service Jul 08, 2016. Subjective Pt evaluation today including: physical exam, chart review, lab review, review of studies, review of inpatient medication list Chest X-ray this morning showed bibasilar airspace opacities and nasogastric and endotracheal tubes in place. WBC count this morning is 11.91. It was noted that the patient's potassium dropped to 2.0 last evening and was 3.0 this morning. His CK level continues to be elevated at 506. Initial blood cultures growing gram positive bacilli in 1/2 cultures. Sputum culture is pending. MRSA swab negative. The patient is intubated and sedated this morning. He is unable to answer any review of systems. I reviewed Wound Care opinion regarding the patient's right foot- feel there may be some deep tissue injury, but no debridement to be done currently. There continues to be a mild foul smell from this area. The patient' s Chest X-ray image was viewed and reviewed by myself. Noted that the patient's temperature has been low today down to 35.8 C. All Other Systems: Reviewed and Negative Medications Current Inpatient Medications Medications (Trade) Dose Ordered Sig/Jaylene Route Start Time Stop Time Status Last Admin Dose Admin Tramadol HCl (Ultram Tab) 50 mg Q4H PRN PO 07/05/16 21:30 08/04/16 21:29 Clonidine HCl (Catapres Tab) 0.1 mg Q6H PRN PO 07/05/16 21:30 08/04/16 21:29 07/06/16 23:54 0.1 MG Thiamine HCl (Vitamin B-1 Tab) 100 mg Q24H PO 07/06/16 09:00 08/05/16 08:59 07/08/16 08:08 100 MG Nicotine (Nicoderm Cq 14MG Patch) 1 patch QAM TD 07/06/16 09:00 08/05/16 08:59 07/08/16 08:08 1 PATCH Miscellaneous (Remove Nicoderm Patch) 1 ea HS N/A 07/06/16 21:00 08/05/16 20:59 Oxycodone/ Acetaminophen (Percocet 5-325MG Tab) 1 tab Q4H PRN PO 07/05/16 23:15 07/19/16 23:14 07/06/16 14:07 1 TAB Morphine Sulfate (MoRPHine SULFATE INJ) 3 mg Q6H PRN IV 07/05/16 23:15 07/19/16 23:14 07/07/16 01:07 3 MG Miscellaneous (Iv Fluids Completed) 1 ea PRN PRN N/A 07/05/16 23:30 07/05/17 23:29 Gabapentin (Neurontin Tab) 600 mg Q12H PO 07/08/16 08:00 07/08/16 20:01 07/08/16 08:08 600 MG Gabapentin (Neurontin Tab) 600 mg Q24H PO 07/09/16 08:00 07/09/16 08:01 Acetaminophen 650 mg 650 mg Q4H PRN PO 07/06/16 01:30 08/05/16 01:29 07/06/16 19:33 650 MG Piperacillin Sod/ Tazobactam Sod/ Dextrose (Zosyn Iv/D5 100ml) 115 ml @ 28.75 mls/ hr Q8@0200,1000,1800 IV 07/06/16 18:00 07/16/16 17:59 07/08/16 09:49 28.75 MLS/HR Piperacillin Sod/ Tazobactam Sod (Consult) 1 ea UD PRN N/A 07/06/16 11:30 08/05/16 11:29 Miconazole Nitrate (Desenex Powder) 1 appln PRN PRN EXT 07/06/16 12:30 08/05/16 12:29 07/06/16 17:56 1 APPLN Magnesium Oxide 400 mg 400 mg BID PO 07/06/16 21:00 08/05/16 20:59 07/08/16 08:09 400 MG Lorazepam/Syringe (Ativan Inj/ Syringe) 1 ml @ 0.5 mls/min Q2HWA PRN IV 07/06/16 19:00 08/05/16 18:59 07/07/16 02:28 0.5 MLS/MIN Lorazepam (Ativan Inj) 3 mg Q1H PRN IV 07/07/16 02:45 08/06/16 02:44 07/07/16 16:02 3 MG Vancomycin HCl (Consult) 1 ea UD PRN N/A 07/07/16 02:45 08/06/16 02:44 Chlordiazepoxide (Librium Cap) 25 mg Q8H PO 07/08/16 06:00 07/08/16 22:01 07/08/16 05:18 25 MG Chlordiazepoxide (Librium Cap) 10 mg Q8H PO 07/09/16 06:00 07/09/16 22:01 Chlordiazepoxide (Librium Cap) 5 mg Q12H PO 07/10/16 08:00 07/10/16 20:01 Potassium/ Phosphorus/Sodium 1 tab 1 tab QID PO 07/07/16 09:00 08/06/16 08:59 07/08/16 08:09 1 TAB Vancomycin HCl/ Sodium Chloride (Vancomycin Inj/ Nss 250ml) 270 ml @ 125 mls/hr Q8H IV 07/07/16 12:00 07/16/16 11:59 07/08/16 03:41 125 MLS/HR Propofol (Diprivan IV 100ML VIAL) 1 dose UD PRN IV 07/07/16 16:00 07/10/16 15:59 07/07/16 18:16 1 DOSE Morphine Sulfate (MoRPHine SULFATE INJ) 2 mg Q1H PRN IV 07/07/16 16:00 07/21/16 15:59 Albuterol (Ventolin Hfa Inhaler) 4 puffs Q6R INH 07/07/16 21:00 08/06/16 20:59 07/08/16 07:25 4 PUFFS Ipratropium [place] (Atrovent Hfa Inhaler) 4 puffs Q6R INH 07/07/16 21:00 08/06/16 20:59 07/08/16 07:25 4 PUFFS Folic Acid (Folvite Tab) 1 mg QAM PO 07/08/16 09:00 08/07/16 08:59 07/08/16 08:09 1 MG Enteral Nutritional Formula 20 ml per hour UD PRN PO 07/07/16 17:00 08/06/16 16:59 07/07/16 18:40 1,000 ML Acetaminophen 100 ml @ 400 mls/hr Q6H PRN IV 07/07/16 18:30 08/06/16 18:29 Potassium Chloride/Sodium Chloride (Nss + 20meq KCl 1000ml) 1,000 ml @ 150 mls/hr Q6H40M IV 07/07/16 23:30 08/06/16 23:29 07/08/16 08:18 150 MLS/HR Chlorhexidine Gluconate 15 ml 15 ml BID MT 07/08/16 11:00 08/07/16 10:59 Pantoprazole Sodium/Syringe (Protonix Inj/ Syringe) 10 ml @ 5 mls/min DAILY@11 IV 07/08/16 11:00 08/07/16 10:59 Objective Vital Signs Date Time Temp Pulse Resp B/P Pulse Ox O2 Delivery O2 Flow Rate FiO2 07/08/16 10:00 58 11 103/65 97 Mechanical Ventilator 35 07/08/16 08:00 35 07/08/16 08:00 100 Mechanical Ventilator 35 07/08/16 08:00 35.8 60 14 146/87 95 Mechanical Ventilator 35 07/08/16 07:40 35 07/08/16 07:25 35 07/08/16 05:59 50 16 103/72 97 07/08/16 05:53 35 07/08/16 04:59 49 17 112/74 100 07/08/16 04:00 36.3 07/08/16 04:00 100 Mechanical Ventilator 35 07/08/16 04:00 35 07/08/16 03:59 48 16 106/64 100 07/08/16 03:44 50 16 101/67 100 07/08/16 03:28 51 16 98/70 100 07/08/16 02:58 53 16 108/67 100 07/08/16 02:28 56 16 107/68 100 07/08/16 02:25 35 07/08/16 02:13 56 16 110/74 100 07/08/16 01:29 36.1 59 16 98/70 100 07/08/16 00:58 36.2 61 16 94/68 100 07/08/16 00:31 40 07/08/16 00:29 100 Mechanical Ventilator 40 07/08/16 00:29 36.3 60 17 100/69 100 07/07/16 23:59 36.5 60 16 102/68 100 07/07/16 23:28 36.6 62 16 95/67 100 07/07/16 23:13 40 07/07/16 22:59 36.8 62 19 96/65 100 07/07/16 22:28 37.1 64 16 100/68 100 07/07/16 21:58 37.3 65 16 100/68 100 07/07/16 21:28 37.6 66 16 105/68 100 07/07/16 20:58 37.9 67 17 94/61 100 07/07/16 20:28 38.2 70 23 91/56 100 07/07/16 20:06 60 07/07/16 20:00 100 Mechanical Ventilator 60 07/07/16 20:00 60 07/07/16 19:58 38.5 73 18 86/54 100 07/07/16 19:28 75 20 95/60 100 07/07/16 18:05 80 07/07/16 18:00 38.2 85 19 86/51 100 Mechanical Ventilator 100 07/07/16 17:00 105 25 115/59 100 Mechanical Ventilator 100 07/07/16 16:43 80 07/07/16 16:00 38.4 99 23 115/71 100 Mechanical Ventilator 100 07/07/16 16:00 Mechanical Ventilator 100 07/07/16 16:00 100 07/07/16 15:00 100 07/07/16 13:45 39.0 119 48 180/89 91 Nasal Cannula 4.0 07/07/16 13:30 39.3 116 49 137/89 91 Nasal Cannula 4.0 07/07/16 13:12 39.4 124 52 136/79 89 Nasal Cannula 3.0 07/07/16 12:45 37.4 122 127/71 90 Nasal Cannula 3.0 07/07/16 12:30 36.8 121 52 135/72 89 Nasal Cannula 3.0 07/07/16 12:15 39.3 126 51 175/88 89 Nasal Cannula 3.0 07/07/16 12:00 90 Nasal Cannula 3.0 07/07/16 12:00 37.0 119 52 149/82 91 Nasal Cannula 3.0 07/07/16 12:00 39.1 121 52 135/81 90 Nasal Cannula 3.0 07/07/16 11:46 39.4 125 50 147/77 88 Nasal Cannula 3.0 07/07/16 11:30 39.3 129 22 122/74 90 Nasal Cannula 3.0 07/07/16 11:15 38.9 128 22 161/97 90 Nasal Cannula 3.0 07/07/16 11:11 122 26 89 Nasal Cannula 3.0 Physical Exam General Appearance: + pertinent finding (intubated, sedated) Neck: supple, trachea midline Respiratory/Chest: chest non-tender, + crackles (right base), + pertinent finding (intubated, ventilated) Cardiovascular: regular rate, rhythm Abdomen: normal bowel sounds Extremities: no pedal edema, + pertinent finding (right foot with dusky appearing areas through the arch of the foot as well as continued darkened/ blackened area of the distal plantar surface) Neurologic/Psychiatric: + pertinent finding (sedated) Skin: no rash, + pertinent finding (foot described above) Laboratory Results CHEST ONE VIEW PORTABLE CLINICAL HISTORY: Pneumonia COMPARISON STUDY: 07/07/2016 FINDINGS: There is been no significant change in the position of the nasogastric tube or endotracheal tube. The cardiac and sternal contours remain stable. There are suspected bilateral pleural effusions with associated bibasal airspace opacities.[ IMPRESSION: Stable findings RUN DATE: 07/08/16 [facility] LAB PAGE 1 RUN TIME: 0456 Specimen Inquiry PATIENT: ANG MEDEL [id number] AGE/SX: 50/M ROOM: E107 REG : 07/06/[address]: Marcus Dalton MD : 1965 BED: 1 DIS : STATUS: ADM IN TLOC: SPEC #: [id number] ALANNAH: 07/06/16 STATUS: RES REQ #: [id number] RECD: 07/06/[address] [facility] [address]: Marcus Dalton MD SOURCE: BLOOD ENTR: 07/06/16 [facility] DR: Jovanny Fry D[facility] Miriam Maza D.OCrys , Romario Purcell MD ORDERED: BLOOD CULTURE Procedure Result Verified Site BLD CULT Preliminary 07/08/16-0456 Organism 1 GRAM POSITIVE BACILLI SENS SENSITIVITIES DEPENDENT ON FURTHER IDENTIFICATION Phoned Positive Blood Culture Gram Stain Report to BRADLEY CABALLERO on 07/08/16 At 0447 By TIM. Results were verbalized back to TIM. Item Value Date Time Gram Stain - Final Resulted 07/07/16 2018 Sputum Trach. Tube Suction MRSA DNA Surveillance Screen - Final Complete 07/07/16 0000 Nasal Specimen Negative for MRSA by DNA Probe Blood Culture - Preliminary Resulted 07/06/16 1120 Blood NO GROWTH TO DATE. Blood Culture - Preliminary Resulted 07/06/16 1115 Blood Gram Positive Bacilli Last 24 Hours Test 07/07/16 13:33 07/07/16 16:11 07/07/16 21:00 07/07/16 23:28 Arterial Blood pH 7.54 Arterial Blood Partial Pressure CO2 30 mmHg Arterial Blood Partial Pressure O2 44 mm/Hg Arterial Blood HCO3 26 mmol/L Arterial Blood Oxygen Saturation 82.5 % Arterial Blood Base Excess 3.4 mEq/L Arterial Blood Gas Delivery 4L Raymond Test POS NA Blood Gas Sample Site L Brachial Bedside Blood Gas pH (LAB) 7.42 Bedside Blood Gas pCO2 (LAB) 39 mmHg Bedside Blood Gas pO2 (LAB) 168 mmHg Bedside Blood Gas HCO3 (LAB) 25 meq/L Bedside Blood Gas Total CO2 26 mEq/l Bedside Blood Gas Base Excess (LAB) 0.0 meq/L Bedside Blood Gas O2 Saturation 100.0 % Oxygen Delivery Device Ventilator Bedside Oxygen Rate (breaths/min) 16 Blood Gas Minute Ventilation 14 Bedside FiO2 100 % Blood Gas Tidal Volume 500 Blood Gas PEEP 5 Sodium Level 131 mmol/L Potassium Level 2.0 mmol/L Chloride Level 95 mmol/L Carbon Dioxide Level 25 mmol/L Anion Gap 11.0 mmol/L Blood Urea Nitrogen 5 mg/dl Creatinine 0.53 mg/dl Est Creatinine Clear Calc Drug Dose 163.3 ml/min Estimated GFR () 142.0 Estimated GFR (Non- 122.5 BUN/Creatinine Ratio 9.4 Random Glucose 115 mg/dl Calcium Level 6.5 mg/dl Phosphorus Level 2.9 mg/dl Magnesium Level 2.1 mg/dl Total Bilirubin 1.0 mg/dl Aspartate Amino Transf (AST/SGOT) 86 U/L Alanine Aminotransferase (ALT/SGPT) 29 U/L Alkaline Phosphatase 46 U/L Total Protein 4.7 gm/dl Albumin 2.1 gm/dl Globulin 2.6 gm/dl Albumin/Globulin Ratio 0.8 Bedside Glucose 127 mg/dl Test 07/08/16 02:56 07/08/16 05:20 07/08/16 05:21 White Blood Count 11.91 K/uL Red Blood Count 3.09 M/uL Hemoglobin 10.4 g/dL Hematocrit 28.7 % Mean Corpuscular Volume 92.9 fL Mean Corpuscular Hemoglobin 33.7 pg Mean Corpuscular Hemoglobin Concent 36.2 g/dl Platelet Count 63 K/uL Mean Platelet Volume 10.7 fL RDW Standard Deviation 40.3 fL RDW Coefficient of Variation 11.8 % Neutrophils % (Manual) 93.1 % Lymphocytes % (Manual) 1.7 % Monocytes % (Manual) 5.2 % Neutrophils # (Manual) 11.09 K/uL Total Absolute Neutrophils 11.09 K/uL Lymphocytes # (Manual) 0.20 K/uL Total Absolute Lymphocytes 0.20 K/uL Monocytes # (Manual) 0.62 K/uL Dohle Bodies 1+ Acanthocytes 1+ Prothrombin Time 11.1 SECONDS Prothromb Time International Ratio 1.0 Activated Partial Thromboplast Time 44.3 SECONDS Partial Thromboplastin Ratio 1.7 Sodium Level 137 mmol/L Potassium Level 3.0 mmol/L Chloride Level 102 mmol/L Carbon Dioxide Level 25 mmol/L Anion Gap 10.0 mmol/L Blood Urea Nitrogen 5 mg/dl Creatinine 0.42 mg/dl Est Creatinine Clear Calc Drug Dose 206.0 ml/min Estimated GFR () > 150.0 Estimated GFR (Non- 134.8 BUN/Creatinine Ratio 12.5 Random Glucose 118 mg/dl Estimated Average Glucose 94 mg/dl Hemoglobin A1c 4.9 % Lactic Acid Level 1.1 mmol/L Calcium Level 7.0 mg/dl Phosphorus Level 2.3 mg/dl Magnesium Level 2.3 mg/dl Total Bilirubin 1.0 mg/dl Aspartate Amino Transf (AST/SGOT) 77 U/L Alanine Aminotransferase (ALT/SGPT) 30 U/L Alkaline Phosphatase 45 U/L Total Creatine Kinase 506 U/L Total Protein 4.8 gm/dl Albumin 2.1 gm/dl Globulin 2.7 gm/dl Albumin/Globulin Ratio 0.8 Bedside Glucose 153 mg/dl Blood Gas Sample Site R Radial Bedside Blood Gas pH (LAB) 7.41 Bedside Blood Gas pCO2 (LAB) 33 mmHg Bedside Blood Gas pO2 (LAB) 63 mmHg Bedside Blood Gas HCO3 (LAB) 21 meq/L Bedside Blood Gas Total CO2 22 mEq/l Bedside Blood Gas Base Excess (LAB) -4.0 meq/L Bedside Blood Gas O2 Saturation 93.0 % Raymond Test Pass Oxygen Delivery Device Ventilator Bedside Oxygen Rate (breaths/min) 16 Blood Gas Minute Ventilation 8.3 Bedside FiO2 35 % Blood Gas Tidal Volume 500 Blood Gas PEEP 5 Assessment and Plan Patient with black area on the right foot along with likely DT's, left rib fractures, left clavicle fracture, left pleural effusion/possible hemothorax and possible aspiration pneumonia. He is currently on IV Zosyn and Vancomycin. Recommend continuation of these abx for possible foot infection and probable aspiration pneumonia/pneumonitis. Blood cultures growing GPB in 1/2 initial cultures. Likely contamination, but will await further identification. ID will continue to follow along. Plan: 1. Continue IV Zosyn and Vancomycin PROVIDER ADDENDUM: Patient reviewed with Ms. Salgado. Agree with above assessment.
[2016-07-08] MEDS: PANTOprazole INJ 40 MG in SYRINGE 0 ML IV SCH (11:16)
[2016-07-08] MEDS: CHLORHEXIDINE GLUCONATE 0.12% 480 ML MT SCH ×2 (11:27→19:36)
[2016-07-08] MEDS ORDERED: VANCOMYCIN TROUGH ONE (11:30)
--- NOTE | 2016-07-08 12:22 | DIAGNOSTIC IMAGING REPORT ---
ABDOMINAL ULTRASOUND, RIGHT UPPER QUADRANT HISTORY: Elevated liver enzymes elevated liver enzymes, limited US to liver. COMPARISON: None. FINDINGS: Pancreas: The pancreas demonstrates a normal echotexture. Liver: Trace surrounding free fluid. Normal patellar ductal system in terms of caliber. Increased echogenicity consistent with fatty infiltration Gallbladder: Mild gallbladder wall edema accentuated by trace amount of surrounding ascitic fluid, wall thickness measures 2 8 mm. CBD: 5 mm Right kidney: No hydronephrosis. IMPRESSION: 1. Fatty infiltration of liver. 2. Moderately edematous gallbladder wall 3. Normal caliber bile ducts Electronically signed by: Keven Vann M.D. 07/08/2016 12:20 PM
[2016-07-08] MEDS: IMPACT LIQ 1000 ML BAG NG SCH (13:38)
--- NOTE | 2016-07-08 13:48 | Pharmacy Progress Note ---
Pharmacy Antibiotic Prog Note Date of Service: Jul 08, 2016. Subjective: The patient is currently receiving VANCOMYCIN and ZOSYN IV; dosing per pharmacy consult The patient is currently on day # 2 IV ABX therapy for possible sepsis secondary to RLL PNX, possible aspiration, multiple skin ulcerations, as well as 1 of 2 BLCX's with gram positive rods. Objective: Height (Feet): 5 Height (Inches): 11.00 Weight (Kilograms): 59.600 Levels: Item Value Date Time Vancomycin Level Trough 12.4 mcg/ml 07/08/16 1142 Lab Results (24hrs): Laboratory Tests Test 07/07/16 21:00 07/08/16 02:56 BUN/Creatinine Ratio 9.4 12.5 Blood Urea Nitrogen 5 mg/dl 5 mg/dl Creatinine 0.53 mg/dl 0.42 mg/dl White Blood Count 11.91 K/uL Red Blood Count 3.09 M/uL Hemoglobin 10.4 g/dL Hematocrit 28.7 % Mean Corpuscular Volume 92.9 fL Mean Corpuscular Hemoglobin 33.7 pg Mean Corpuscular Hemoglobin Concent 36.2 g/dl Platelet Count 63 K/uL Mean Platelet Volume 10.7 fL Micro Results: 07/06: 1 of 2 blood cxs growing gram positive rods (possible contamination?) 07/06: nasal swab for MRSA negative 07/07: sputum cx: no growth Assessment & Plan: * Renal fxn remains stable based upon SCr/BUN and U.O. * He still remains on mechanical vent due to acute MS changes, likely related to DT's/EtOH withdrawal * Persistent fever yesterday, but afebrile at this time; VSS at this time - did have brief bradycardia likely due to Precedex yesterday VANCOMYCIN * currently receiving 1000mg IV Q 8 hrs * trough level drawn prior to 4th maintenance dose * trough level wasn't quite at goal, however level may increase further with repeat dosing. * goal trough 15-20 for sepsis and possible pulm infxn; trough was 12.4; level was drawn at the appropriate time and prior doses hung on time * will continue with current dose and recheck level in 24 hrs (after 3 more doses) to ensure level is at goal. ZOSYN: * Continue 3.375gm extended-infusion Q 8 hours Pharmacy will continue to follow and will adjust dose/frequency as necessary. Thank you
[2016-07-08 15:59] LABS: POTASSIUM 2.9 mmol/L (3.5-5.1)
--- NOTE | 2016-07-08 16:04 | DIAGNOSTIC IMAGING REPORT ---
CHEST ONE VIEW PORTABLE CLINICAL HISTORY: s/p left chest tube insertion tube position COMPARISON STUDY: 07/08/2016 FINDINGS: Interval placement of a small caliber left-sided chest tube. Endotracheal tube 3 cm below the shashank. Bilateral pleural effusions unchanged. IMPRESSION: Endotracheal tube 3 cm above the shashank. Bilateral pleural effusions unchanged. Small caliber left-sided chest tube with no evidence pneumothorax. Electronically signed by: Keven Vann M.D. 07/08/2016 4:03 PM
[2016-07-08 16:05] LABS: PHOSPHORUS 1.9 mg/dl (2.5-4.9)
[2016-07-08] MEDS: PROPOFOL IV EMULSION 10 MG/ML 100 ML VIAL IV PRN (16:10)
--- NOTE | 2016-07-08 16:38 | Progress Note ---
Internal Med Progress Note Date of Service: Jul 08, 2016. Provider Documentation: SUBJECTIVE: patient current s/p intubation and sedation hemodynamics stable afebrile OBJECTIVE: Vital Signs-as noted below Exam: General-. s/p intubation ENT-hard of hearing Neck-no neck masses Lungs-cta b/l no wheezing or crackles Heart-s1 and s2 heard regular rate and rhythm, no murmurs Abdomen-soft bowel sounds present no distension Extremities-no pedal edema no erythema foul smelling feet Neuro-s/p intubation and sedated Lab data as noted below. ASSESSMENT & PLAN: This is a 50-year-old male, who [facility] with a history of alcoholism, smoking and hypertension by chart history; presenting with left-sided rib/chest pains after a fall since last night. Alcohol withdrawal patient was not much responding to gabapentin protocol, iv Ativan and Librium transferred to icu and s/p intubation and Precedex drip and Diprivan continue same Sepsis possible pneumonia superficial skin 'gangrene of the foot? deep tissue injury as per wound care on iv fluids on vanco and Zosyn gm positive bacillin in one bottle of blood culture ID on board. Left-sided chest pain, secondary to acute left rib fractures; 4th to 7th ribs as well as left clavicle fracture secondary to accidental fall. pain control appreciate ortho input pt/ot. currently intubated hemothorax possibly consulted pulmonary plan for thoracocentesis today. Hypoxia, likely secondary to above. We will continue pulse oximetry monitoring and incentive spirometry.s/p intubation currently Hypertension history. on clonidine prn may need medications on discharge.currently hypotensive Hyponatremia of 129 today, likely secondary to dehydration. on fluids will monitor electrolyte abnormalities will replace will f/u labs Deep venous thrombosis prophylaxis: SCDs for now. DISPOSITION close monitor in ICU Vital Signs: Date Time Temp Pulse Resp B/P Pulse Ox O2 Delivery O2 Flow Rate FiO2 07/08/16 16:00 36.9 101 38 144/90 93 Mechanical Ventilator 35 07/08/16 16:00 Mechanical Ventilator 35 07/08/16 16:00 35 07/08/16 14:00 89 31 128/85 75 Mechanical Ventilator 35 07/08/16 12:00 36.5 69 33 104/69 93 Mechanical Ventilator 35 07/08/16 12:00 Mechanical Ventilator 35 07/08/16 12:00 35 07/08/16 11:35 35 07/08/16 10:00 58 11 103/65 97 Mechanical Ventilator 35 07/08/16 08:00 35 07/08/16 08:00 100 Mechanical Ventilator 35 07/08/16 08:00 35.8 60 14 146/87 95 Mechanical Ventilator 35 07/08/16 07:40 35 07/08/16 07:25 35 07/08/16 05:59 50 16 103/72 97 07/08/16 05:53 35 07/08/16 04:59 49 17 112/74 100 07/08/16 04:00 36.3 07/08/16 04:00 100 Mechanical Ventilator 35 07/08/16 04:00 35 07/08/16 03:59 48 16 106/64 100 07/08/16 03:44 50 16 101/67 100 07/08/16 03:28 51 16 98/70 100 07/08/16 02:58 53 16 108/67 100 07/08/16 02:28 56 16 107/68 100 07/08/16 02:25 35 07/08/16 02:13 56 16 110/74 100 07/08/16 01:29 36.1 59 16 98/70 100 07/08/16 00:58 36.2 61 16 94/68 100 07/08/16 00:31 40 07/08/16 00:29 100 Mechanical Ventilator 40 07/08/16 00:29 36.3 60 17 100/69 100 07/07/16 23:59 36.5 60 16 102/68 100 07/07/16 23:28 36.6 62 16 95/67 100 07/07/16 23:13 40 07/07/16 22:59 36.8 62 19 96/65 100 07/07/16 22:28 37.1 64 16 100/68 100 07/07/16 21:58 37.3 65 16 100/68 100 07/07/16 21:28 37.6 66 16 105/68 100 07/07/16 20:58 37.9 67 17 94/61 100 07/07/16 20:28 38.2 70 23 91/56 100 07/07/16 20:06 60 07/07/16 20:00 100 Mechanical Ventilator 60 07/07/16 20:00 60 07/07/16 19:58 38.5 73 18 86/54 100 07/07/16 19:28 75 20 95/60 100 07/07/16 18:05 80 07/07/16 18:00 38.2 85 19 86/51 100 Mechanical Ventilator 100 07/07/16 17:00 105 25 115/59 100 Mechanical Ventilator 100 07/07/16 16:43 80 Lab Results: Results Past 24 Hours Test 07/07/16 21:00 07/07/16 23:28 07/08/16 02:56 07/08/16 05:20 Range/Units Sodium Level 131 137 136-145 mmol/L Potassium Level 2.0 3.0 3.5-5.1 mmol/L Chloride Level 95 102 98-107 mmol/L Carbon Dioxide Level 25 25 21-32 mmol/L Anion Gap 11.0 10.0 3-11 mmol/L Blood Urea Nitrogen 5 5 7-18 mg/dl Creatinine 0.53 0.42 0.60-1.40 mg/dl Est Creatinine Clear Calc Drug Dose 163.3 206.0 ml/min Estimated GFR () 142.0 > 150.0 Estimated GFR (Non- 122.5 134.8 BUN/Creatinine Ratio 9.4 12.5 10-20 Random Glucose 115 118 70-99 mg/dl Calcium Level 6.5 7.0 8.5-10.1 mg/dl Phosphorus Level 2.9 2.3 2.5-4.9 mg/dl Magnesium Level 2.1 2.3 1.8-2.4 mg/dl Total Bilirubin 1.0 1.0 0.2-1 mg/dl Aspartate Amino Transf (AST/SGOT) 86 77 15-37 U/L Alanine Aminotransferase (ALT/SGPT) 29 30 12-78 U/L Alkaline Phosphatase 46 45 45-117 U/L Total Protein 4.7 4.8 6.4-8.2 gm/dl Albumin 2.1 2.1 3.4-5.0 gm/dl Globulin 2.6 2.7 2.5-4.0 gm/dl Albumin/Globulin Ratio 0.8 0.8 0.9-2 Bedside Glucose 127 153 70-99 mg/dl White Blood Count 11.91 4.8-10.8 K/uL Red Blood Count 3.09 4.7-6.1 M/uL Hemoglobin 10.4 14.0-18.0 g/dL Hematocrit 28.7 42-52 % Mean Corpuscular Volume 92.9 80-100 fL Mean Corpuscular Hemoglobin 33.7 25-34 pg Mean Corpuscular Hemoglobin Concent 36.2 32-36 g/dl Platelet Count 63 130-400 K/uL Mean Platelet Volume 10.7 7.4-10.4 fL RDW Standard Deviation 40.3 36.4-46.3 fL RDW Coefficient of Variation 11.8 11.5-14.5 % Neutrophils % (Manual) 93.1 % Lymphocytes % (Manual) 1.7 % Monocytes % (Manual) 5.2 % Neutrophils # (Manual) 11.09 1.4-6.5 K/uL Total Absolute Neutrophils 11.09 1.4-6.5 K/uL Lymphocytes # (Manual) 0.20 1.2-3.4 K/uL Total Absolute Lymphocytes 0.20 1.2-3.4 K/uL Monocytes # (Manual) 0.62 0.11-0.59 K/uL Dohle Bodies 1+ Acanthocytes 1+ Prothrombin Time 11.1 9.0-12.0 SECONDS Prothromb Time International Ratio 1.0 0.9-1.1 Activated Partial Thromboplast Time 44.3 21.0-31.0 SECONDS Partial Thromboplastin Ratio 1.7 Estimated Average Glucose 94 mg/dl Hemoglobin A1c 4.9 4.5-5.6 % Lactic Acid Level 1.1 0.4-2.0 mmol/L Total Creatine Kinase 506 39-308 U/L Test 07/08/16 05:21 07/08/16 11:42 07/08/16 13:53 07/08/16 15:11 Range/Units Blood Gas Sample Site R Radial Bedside Blood Gas pH (LAB) 7.41 7.35-7.45 Bedside Blood Gas pCO2 (LAB) 33 35-46 mmHg Bedside Blood Gas pO2 (LAB) 63 80-95 mmHg Bedside Blood Gas HCO3 (LAB) 21 19-24 meq/L Bedside Blood Gas Total CO2 22 24-31 mEq/l Bedside Blood Gas Base Excess (LAB) -4.0 -9-1.8 meq/L Bedside Blood Gas O2 Saturation 93.0 90-95 % Raymond Test Pass Oxygen Delivery Device Ventilator Bedside Oxygen Rate (breaths/min) 16 Blood Gas Minute Ventilation 8.3 Bedside FiO2 35 % Blood Gas Tidal Volume 500 Blood Gas PEEP 5 Vancomycin Level Trough 12.4 SEE COMMENT mcg/ml Potassium Level 2.9 3.5-5.1 mmol/L Phosphorus Level 1.9 2.5-4.9 mg/dl Procalcitonin 14.20 0-0.5 ng/mL Microbiology Results 07/07/16 Gram Stain - Final, Resulted 07/07/16 Sputum Culture - Preliminary, Resulted NO GROWTH 07/08/16 Fungal Smear, Received Pending 07/08/16 Fungal Culture, Received Pending 07/08/16 Acid Fast Stain, Received Pending 07/08/16 Mycobacterial Culture, Received Pending 07/08/16 Gram Stain, Received Pending 07/08/16 Wound Culture, Received Pending
[2016-07-08 17:16] LABS: PLEURAL FLUID GLUCOSE 105 mg/dl
[2016-07-08 17:23] LABS: PLEURAL FLUID TOTAL PROTEIN 2.5 g/dl
[2016-07-08] MEDS ORDERED: DexMEDEtomidine IV DRIP IV STA (17:29)
[2016-07-08] MEDS ORDERED: POTASSIUM PHOSPHATE INJ 24 MMOL in SODIUM CHLORIDE 0.9% 500ML 500 ML IV SCH (18:00)
[2016-07-08 18:18] LABS: PLEURAL FLUID APPEARANCE BLOODY; PLEURAL FLUID COLOR RED; PLEURAL FLUID MONONUC RELAT 7.5 %; PLEURAL FLUID POLYNUC 92.5 %; PLEURAL FLUID SOURCE LEFT LUNG; PLEURAL FLUID WBC (A) 5151 /uL
[2016-07-08] MEDS: DexMEDEtomidine HCL INJ 200 MCG in SODIUM CHLORIDE 0.9% 50ML 48 ML IV PRN ×2 (18:43→22:48)
--- NOTE | 2016-07-08 19:00 | Procedure Note ---
Procedure Note Procedure Date Jul 08, 2016. (Maksim Smith MD) Procedure Description Procedure Name: Left chest tube insertion Procedure time out: patient ID confirmed Consent obtained: written (2 physician consent) Time of procedure: 15:30 Performed by: resident (Dr Negrete [facility] faculty assistant) Indications: diagnostic (ongoing fever without source) Contraindications: none Description: The patient was identified using two separate identification markers. Patient was placed in a supine position, rolled approx 20 degrees on right side with left arm slight abducted and elbow flexed (carefully moved due to clavicle fracture). The spleen, diaphragm, left lung and pleural space were identified with ultrasound and location of non loculated pleural effusion seen. Injection site marked just superior to 5th rib in mid-axillary line. Skin was prepped with chlorhexidine and patient was draped using sterile drapes , gloves and gowns. Ultrasound with sterile cover was used to identify the pleural space. 5 cc unbuffered Lidocaine 1% without epinephrine was injected below the skin ( bleb), over the 5th rib using skin traction, working just over the rib into the intercostal space and into the pleural space. Continuous aspiration used to confirm in the pleural space. Seldinger technique used to insert 16 Fr Tral-quick chest tube: Introducer needle inserted into pleural space with skin traction and z-track technique. Using continuous aspiration on insertion until into the pleural space. 10 cc of serosanguineous fluid removed and sent to the lab for cell count, culture, AFP, fungal culture, LDH, protein, glucose Wire inserted through introducer needle into pleural space. Confirmation of wire position in pleural space identified with ultrasound. Vertical 1cm Skin incision made adjacent to wire. The tissue was serially dilated x3 starting with 8Fr to 14Fr with no significant bleeding. 16 Fr Thal-quick chest tube was inserted to 10 cm Chest tube was attached to Annita drain at [id number] pressure, draining serosanguineous fluid x2 Sutures placed with surgeons knot to anchor the chest tube, lacing around the tube multiple times and secured with reef knot Vital signs stable throughout procedure. Patient tolerated procedure: well Post-procedure vital signs: reviewed and stable (Maksim Smith MD) Assessment/Plan I was present during the entire procedure. (Patrick Negrete, D.O.)
--- NOTE | 2016-07-08 20:23 | Critical Care Progress Note ---
Critical Care Progress Note Date of Service Jul 08, 2016. Attending Dr. Caden Roy had no to questioning if he has any pain. Following commands Objective General Appearance: + pertinent finding (intubated, sedated) GCS 90 Neck: supple, trachea midline Respiratory/Chest: chest non-tender, + crackles (right base), + pertinent finding (intubated, ventilated) Cardiovascular: regular rate, rhythm Abdomen: normal bowel sounds Extremities: no pedal edema, + pertinent finding (right foot with dusky appearing areas through the arch of the foot as well as continued darkened/ blackened area of the distal plantar surface) Neurologic/Psychiatric: + pertinent finding (sedated) Skin: no rash, + pertinent finding (foot described above) Assessment & Plan ASSESSMENT & PLAN: This is a 50-year-old male, who lives in a homeless senior care with a history of alcoholism, smoking and hypertension by chart history; presenting with left-sided rib/chest pains after a fall since last night. Alcohol withdrawal On Librium and propofol, attempt to wean to precedex. Neuro status appears to be improving likely be able to attempt spontaneous awakening trial with spontaneous breathing trial tomorrow. Sepsis 1 out of 2 blood cultures positive. Continue Zosyn and vancomycin for possible skin and soft tissue infection Doubt pneumonia, placed chest tube to drain hemothorax and evaluate for empyema given multiple risk factors, cultures remain negative Elevated pro calcitonin Abdominal ultrasound revealed mild gallbladder wall edema. Continue to trend LFTs likely related to alcohol use May require further imaging of the lower extremity to rule out deep space infection and CT maxillofacial to rule out dental abscess given multiple caries Transaminitis We will check hepatitis panel, abdominal ultrasound candidate for cirrhosis given strong alcohol history in age range for hepatitis C. Left-sided chest pain, secondary to acute left rib fractures; 4th to 7th ribs as well as left clavicle fracture secondary to accidental fall. pain control appreciate ortho input pt/ot. currently intubated Briefly touched base with pain management, for possible epidural, nerve block, not appropriate candidate at this time hemothorax Drained 200 mL of serosanguineous fluid, no obvious indication of infection. Hypoxia: Decreasing oxygen requirement adequate oxygenation on pressure support ventilation. Not completely convinced there is a pneumonia component at this point we'll continue to monitor Hypertension history: Discontinue clonidine as we attempted to start precedex may need medications on discharge. Hyponatremia of 129 today, likely secondary to dehydration. on fluids will monitor electrolyte abnormalities Continue aggressive potassium repletion Deep venous thrombosis prophylaxis: SCDs for now. Patient is reportedly estranged from his brother, I have discussed the case with social work, we will be attempting to move forward with a court-appointed surrogate/medical decision maker for the patient. I have personally spent 90 minutes of critical care time in the direct management of this patient. This is a life/limb threatening event. This includes time spent evaluating patient, direct bedside care, chart review, placing orders, interpretation of diagnostic studies, discussion with consultants, patient, and family members, as well as other required patient management activities. This time is exclusive of all separately billable procedures, and teaching time and separate from and in addition to any other critical care service time. Data Medications: Current Inpatient Medications Medications (Trade) Dose Ordered Sig/Jaylene Route Start Time Stop Time Status Last Admin Dose Admin Tramadol HCl (Ultram Tab) 50 mg Q4H PRN PO 07/05/16 21:30 08/04/16 21:29 Clonidine HCl (Catapres Tab) 0.1 mg Q6H PRN PO 07/05/16 21:30 08/04/16 21:29 07/06/16 23:54 0.1 MG Nicotine (Nicoderm Cq 14MG Patch) 1 patch QAM TD 07/06/16 09:00 08/05/16 08:59 07/08/16 08:08 1 PATCH Miscellaneous (Remove Nicoderm Patch) 1 ea HS N/A 07/06/16 21:00 08/05/16 20:59 Oxycodone/ Acetaminophen (Percocet 5-325MG Tab) 1 tab Q4H PRN PO 07/05/16 23:15 07/19/16 23:14 07/06/16 14:07 1 TAB Morphine Sulfate (MoRPHine SULFATE INJ) 3 mg Q6H PRN IV 07/05/16 23:15 07/19/16 23:14 07/07/16 01:07 3 MG Miscellaneous (Iv Fluids Completed) 1 ea PRN PRN N/A 07/05/16 23:30 07/05/17 23:29 Gabapentin (Neurontin Tab) 600 mg Q12H PO 07/08/16 08:00 07/08/16 20:01 07/08/16 08:08 600 MG Gabapentin (Neurontin Tab) 600 mg Q24H PO 07/09/16 08:00 07/09/16 08:01 Acetaminophen 650 mg 650 mg Q4H PRN PO 07/06/16 01:30 08/05/16 01:29 07/06/16 19:33 650 MG Piperacillin Sod/ Tazobactam Sod/ Dextrose (Zosyn Iv/D5 100ml) 115 ml @ 28.75 mls/ hr Q8@0200,1000,1800 IV 07/06/16 18:00 07/16/16 17:59 07/08/16 17:22 28.75 MLS/HR Piperacillin Sod/ Tazobactam Sod (Consult) 1 ea UD PRN N/A 07/06/16 11:30 08/05/16 11:29 Miconazole Nitrate (Desenex Powder) 1 appln PRN PRN EXT 07/06/16 12:30 08/05/16 12:29 07/06/16 17:56 1 APPLN Magnesium Oxide 400 mg 400 mg BID PO 07/06/16 21:00 08/05/16 20:59 07/08/16 08:09 400 MG Lorazepam/Syringe (Ativan Inj/ Syringe) 1 ml @ 0.5 mls/min Q2HWA PRN IV 07/06/16 19:00 08/05/16 18:59 07/07/16 02:28 0.5 MLS/MIN Lorazepam (Ativan Inj) 3 mg Q1H PRN IV 07/07/16 02:45 08/06/16 02:44 07/07/16 16:02 3 MG Vancomycin HCl (Consult) 1 ea UD PRN N/A 07/07/16 02:45 08/06/16 02:44 Chlordiazepoxide (Librium Cap) 25 mg Q8H PO 07/08/16 06:00 07/08/16 22:01 07/08/16 13:36 25 MG Chlordiazepoxide (Librium Cap) 10 mg Q8H PO 07/09/16 06:00 07/09/16 22:01 Chlordiazepoxide (Librium Cap) 5 mg Q12H PO 07/10/16 08:00 07/10/16 20:01 Potassium/ Phosphorus/Sodium 1 tab 1 tab QID PO 07/07/16 09:00 08/06/16 08:59 07/08/16 17:22 1 TAB Vancomycin HCl/ Sodium Chloride (Vancomycin Inj/ Nss 250ml) 270 ml @ 125 mls/hr Q8H IV 07/07/16 12:00 07/16/16 11:59 07/08/16 12:12 125 MLS/HR Propofol (Diprivan IV 100ML VIAL) 1 dose UD PRN IV 07/07/16 16:00 07/10/16 15:59 07/08/16 16:10 1 DOSE Morphine Sulfate (MoRPHine SULFATE INJ) 2 mg Q1H PRN IV 07/07/16 16:00 07/21/16 15:59 07/08/16 17:24 2 MG Albuterol (Ventolin Hfa Inhaler) 4 puffs Q6R INH 07/07/16 21:00 08/06/16 20:59 07/08/16 19:20 4 PUFFS Ipratropium Bullock (Atrovent Hfa Inhaler) 4 puffs Q6R INH 07/07/16 21:00 08/06/16 20:59 07/08/16 19:20 4 PUFFS Folic Acid 1 mg 1 mg QAM PO 07/08/16 09:00 08/07/16 08:59 07/08/16 08:09 1 MG Acetaminophen 100 ml @ 400 mls/hr Q6H PRN IV 07/07/16 18:30 08/06/16 18:29 Potassium Chloride/Sodium Chloride (Nss + 20meq KCl 1000ml) 1,000 ml @ 150 mls/hr Q6H40M IV 07/07/16 23:30 08/06/16 23:29 07/08/16 15:44 150 MLS/HR Chlorhexidine Gluconate 15 ml 15 ml BID MT 07/08/16 11:00 08/07/16 10:59 07/08/16 11:27 15 ML Pantoprazole Sodium/Syringe (Protonix Inj/ Syringe) 10 ml @ 5 mls/min DAILY@11 IV 07/08/16 11:00 08/07/16 10:59 07/08/16 11:16 5 MLS/MIN Enteral Nutritional Formula 1000 ml 1,000 ml UD NG 07/08/16 11:30 08/07/16 11:29 07/08/16 13:38 1,000 ML Potassium Chloride 10 meq/ Prmx 100 ml @ 100 mls/hr Q1H IV 07/08/16 18:00 07/08/16 21:59 07/08/16 18:53 100 MLS/HR Potassium Phosphate 24 mmol/ Sodium Chloride 508 ml @ 127 mls/hr TODAY@1800 IV 07/08/16 18:00 07/08/16 21:59 07/08/16 18:00 127 MLS/HR Dexmedetomidine HCl/Sodium Chloride (PreCEDEX INJ/ Nss 50ml) 50 ml @ 0 mls/hr Q0M PRN IV 07/08/16 17:45 07/12/16 17:44 07/08/16 18:43 1.5 MLS/HR Thiamine HCl (Vitamin B-1 Tab) 100 mg 5XDQ4H PO 07/08/16 19:00 07/11/16 18:59 07/08/16 19:32 100 MG I & O: 24-Hour Column 07/08/16 08:00 Intake Total 4997 ml Output Total 3075 ml Balance 1922 ml Vital Signs: Date Time Temp Pulse Resp B/P Pulse Ox O2 Delivery O2 Flow Rate FiO2 07/08/16 19:21 35 07/08/16 18:00 97 25 102/66 92 Mechanical Ventilator 35 07/08/16 17:58 35 07/08/16 16:00 36.9 101 38 144/90 93 Mechanical Ventilator 35 07/08/16 16:00 Mechanical Ventilator 35 07/08/16 16:00 35 07/08/16 14:10 35 07/08/16 14:00 89 31 128/85 75 Mechanical Ventilator 35 07/08/16 12:00 36.5 69 33 104/69 93 Mechanical Ventilator 35 07/08/16 12:00 Mechanical Ventilator 35 07/08/16 12:00 35 07/08/16 11:35 35 07/08/16 10:00 58 11 103/65 97 Mechanical Ventilator 35 07/08/16 08:00 35 07/08/16 08:00 100 Mechanical Ventilator 35 07/08/16 08:00 35.8 60 14 146/87 95 Mechanical Ventilator 35 07/08/16 07:40 35 07/08/16 07:25 35 07/08/16 05:59 50 16 103/72 97 07/08/16 05:53 35 07/08/16 04:59 49 17 112/74 100 07/08/16 04:00 36.3 07/08/16 04:00 100 Mechanical Ventilator 35 07/08/16 04:00 35 07/08/16 03:59 48 16 106/64 100 07/08/16 03:44 50 16 101/67 100 07/08/16 03:28 51 16 98/70 100 07/08/16 02:58 53 16 108/67 100 07/08/16 02:28 56 16 107/68 100 07/08/16 02:25 35 07/08/16 02:13 56 16 110/74 100 07/08/16 01:29 36.1 59 16 98/70 100 07/08/16 00:58 36.2 61 16 94/68 100 07/08/16 00:31 40 07/08/16 00:29 100 Mechanical Ventilator 40 07/08/16 00:29 36.3 60 17 100/69 100 07/07/16 23:59 36.5 60 16 102/68 100 07/07/16 23:28 36.6 62 16 95/67 100 07/07/16 23:13 40 07/07/16 22:59 36.8 62 19 96/65 100 07/07/16 22:28 37.1 64 16 100/68 100 07/07/16 21:58 37.3 65 16 100/68 100 07/07/16 21:28 37.6 66 16 105/68 100 07/07/16 20:58 37.9 67 17 94/61 100 07/07/16 20:28 38.2 70 23 91/56 100 07/07/16 20:06 60 07/07/16 20:00 100 Mechanical Ventilator 60 07/07/16 20:00 60 07/07/16 19:58 38.5 73 18 86/54 100 Laboratory Results: Last 24 Hours Test 07/07/16 21:00 07/07/16 23:28 07/08/16 02:56 07/08/16 05:20 Sodium Level 131 mmol/L 137 mmol/L Potassium Level 2.0 mmol/L 3.0 mmol/L Chloride Level 95 mmol/L 102 mmol/L Carbon Dioxide Level 25 mmol/L 25 mmol/L Anion Gap 11.0 mmol/L 10.0 mmol/L Blood Urea Nitrogen 5 mg/dl 5 mg/dl Creatinine 0.53 mg/dl 0.42 mg/dl Est Creatinine Clear Calc Drug Dose 163.3 ml/min 206.0 ml/min Estimated GFR () 142.0 > 150.0 Estimated GFR (Non- 122.5 134.8 BUN/Creatinine Ratio 9.4 12.5 Random Glucose 115 mg/dl 118 mg/dl Calcium Level 6.5 mg/dl 7.0 mg/dl Phosphorus Level 2.9 mg/dl 2.3 mg/dl Magnesium Level 2.1 mg/dl 2.3 mg/dl Total Bilirubin 1.0 mg/dl 1.0 mg/dl Aspartate Amino Transf (AST/SGOT) 86 U/L 77 U/L Alanine Aminotransferase (ALT/SGPT) 29 U/L 30 U/L Alkaline Phosphatase 46 U/L 45 U/L Total Protein 4.7 gm/dl 4.8 gm/dl Albumin 2.1 gm/dl 2.1 gm/dl Globulin 2.6 gm/dl 2.7 gm/dl Albumin/Globulin Ratio 0.8 0.8 Bedside Glucose 127 mg/dl 153 mg/dl White Blood Count 11.91 K/uL Red Blood Count 3.09 M/uL Hemoglobin 10.4 g/dL Hematocrit 28.7 % Mean Corpuscular Volume 92.9 fL Mean Corpuscular Hemoglobin 33.7 pg Mean Corpuscular Hemoglobin Concent 36.2 g/dl Platelet Count 63 K/uL Mean Platelet Volume 10.7 fL RDW Standard Deviation 40.3 fL RDW Coefficient of Variation 11.8 % Neutrophils % (Manual) 93.1 % Lymphocytes % (Manual) 1.7 % Monocytes % (Manual) 5.2 % Neutrophils # (Manual) 11.09 K/uL Total Absolute Neutrophils 11.09 K/uL Lymphocytes # (Manual) 0.20 K/uL Total Absolute Lymphocytes 0.20 K/uL Monocytes # (Manual) 0.62 K/uL Dohle Bodies 1+ Acanthocytes 1+ Prothrombin Time 11.1 SECONDS Prothromb Time International Ratio 1.0 Activated Partial Thromboplast Time 44.3 SECONDS Partial Thromboplastin Ratio 1.7 Estimated Average Glucose 94 mg/dl Hemoglobin A1c 4.9 % Lactic Acid Level 1.1 mmol/L Total Creatine Kinase 506 U/L Test 07/08/16 05:21 07/08/16 11:42 07/08/16 13:53 07/08/16 15:11 Blood Gas Sample Site R Radial Bedside Blood Gas pH (LAB) 7.41 Bedside Blood Gas pCO2 (LAB) 33 mmHg Bedside Blood Gas pO2 (LAB) 63 mmHg Bedside Blood Gas HCO3 (LAB) 21 meq/L Bedside Blood Gas Total CO2 22 mEq/l Bedside Blood Gas Base Excess (LAB) -4.0 meq/L Bedside Blood Gas O2 Saturation 93.0 % Raymond Test Pass Oxygen Delivery Device Ventilator Bedside Oxygen Rate (breaths/min) 16 Blood Gas Minute Ventilation 8.3 Bedside FiO2 35 % Blood Gas Tidal Volume 500 Blood Gas PEEP 5 Vancomycin Level Trough 12.4 mcg/ml Potassium Level 2.9 mmol/L Phosphorus Level 1.9 mg/dl Procalcitonin 14.20 ng/mL Pleural Fluid Source LEFT LUNG Pleural Fluid Color RED Pleural Fluid Appearance BLOODY Pleural Fluid WBC 5151 /uL Pleural Fluid RBC [id number] /[id number] Pleural Fluid Polynuclear WBCs % 92.5 % Pleural Fluid Mononuclear WBCs % 7.5 % Pleural Fluid Total Protein 2.5 g/dl Pleural Fluid LDH 564 IU Pleural Fluid Glucose 105 mg/dl
[2016-07-08 21:49] LABS: URINE APPEARANCE CLEAR (CLEAR); URINE BILIRUBIN NEG (NEG); URINE COLOR DK YELLOW; URINE EPITHELIAL CELL AUTO >30 /lpf (0-5); URINE NITRITE NEG (NEG); URINE PH 5.5 (4.5-7.5); URINE SPECIFIC GRAVITY 1.028 (1.000-1.030); UROBILINOGEN NEG (NEG); ZZURINE CULT IF INDIC CATH NO
[2016-07-08 21:50] LABS: MANUAL MICROSCOPIC REQUIRED? NO; REVIEW REQ? YES
[2016-07-08] MEDS ORDERED: SODIUM CHLORIDE 0.9% IV PRN (23:00)
[2016-07-08] MEDS ORDERED: DEXMEDETOMIDINE HCL IV PRN (23:00)
[2016-07-09] VITALS (33 sets, daily range): BP systolic 113–158; BP diastolic 74–88; PULSE 57–74; TEMP 36.8–37.3; O2SAT 93–99
[2016-07-09 00:14] LABS: BLOOD UREA NITROGEN 7 mg/dl (7-18); CALCIUM 5.7 mg/dl (8.5-10.1); CARBON DIOXIDE 22 mmol/L (21-32); CHLORIDE 114 mmol/L (98-107); CREATININE 0.31 mg/dl (0.60-1.40); GLUCOSE 98 mg/dl (70-99); MAGNESIUM 1.6 mg/dl (1.8-2.4); PHOSPHORUS 2.3 mg/dl (2.5-4.9); SODIUM 143 mmol/L (136-145)
[2016-07-09] MEDS ORDERED: CALCIUM GLUCONATE 10% 1,000 MG in SODIUM CHLORIDE 0.9% 50ML 50 ML IV ONE (00:45)
[2016-07-09] MEDS: MAGNESIUM SULFATE 1GM / D5W 1 GM in PREMIXED IN D5W 100 ML IV SCH ×2 (00:51→02:06)
[2016-07-09] MEDS: DexMEDEtomidine HCL INJ 400 MCG in SODIUM CHLORIDE 0.9% 100ML 96 ML IV PRN ×2 (01:57→20:31)
[2016-07-09] MEDS: PROPOFOL IV EMULSION 10 MG/ML 100 ML VIAL IV PRN (01:58)
[2016-07-09] MEDS: PIPERACILL/TAZOBAC IV 3.375 GM in DEXTROSE 5% 100ML 100 ML IV SCH ×3 (02:01→17:02)
[2016-07-09] MEDS: IPRATROPIUM BROMIDE HFA INHALER INH SCH ×4 (02:19→19:21)
[2016-07-09] MEDS: ALBUTEROL HFA 8 GM INHALER INH SCH ×4 (02:19→19:21)
[2016-07-09] MEDS: NSS + 20MEQ KCL 1000ML 1,000 ML IV SCH (04:04)
[2016-07-09] MEDS: VANCOMYCIN INJ 1,000 MG in SODIUM CHLORIDE 0.9% 250ML 250 ML IV SCH ×3 (04:06→19:29)
[2016-07-09] MEDS: CHLORDIAZEPOXIDE 10MG Q8H DOSE PO SCH ×3 (05:36→22:04)
[2016-07-09] MEDS: THIAMINE HCL 100 MG TAB PO SCH ×5 (05:37→22:05)
[2016-07-09 06:09] LABS: HEMATOCRIT 26.4 % (42-52); MEAN CORPUSCULAR HEMOGLOBIN 33.5 pg (25-34); MEAN CORPUSCULAR HGB CONC 35.2 g/dl (32-36); RED BLOOD COUNT 2.78 M/uL (4.7-6.1); WHITE BLOOD COUNT 8.65 K/uL (4.8-10.8)
[2016-07-09 06:11] LABS: BASO % 0.3 %; BASO ABS # 0.03 K/uL (0-0.2); COMPLETE YES; EOS % 0.1 %; IG% 0.9 %; LYMPH % 13.9 %; MEAN PLATELET VOLUME 10.3 fL (7.4-10.4); MONO % 10.6 %; NEUT % 74.2 %; PLATELET COUNT 82 K/uL (130-400)
[2016-07-09 07:13] LABS: MAGNESIUM 2.2 mg/dl (1.8-2.4); PHOSPHORUS 2.2 mg/dl (2.5-4.9)
[2016-07-09] MEDS ORDERED: GABAPENTIN 600MG X1 DOSE PO SCH (08:00)
[2016-07-09 08:59] LABS: BLOOD UREA NITROGEN 6 mg/dl (7-18); BUN/CREATININE RATIO 16.9 (10-20); CALCIUM 6.2 mg/dl (8.5-10.1); CARBON DIOXIDE 20 mmol/L (21-32); CHLORIDE 117 mmol/L (98-107); CREATININE 0.35 mg/dl (0.60-1.40); GLUCOSE 90 mg/dl (70-99); PHOSPHORUS 2.1 mg/dl (2.5-4.9); POTASSIUM 5.3 mmol/L (3.5-5.1); SODIUM 144 mmol/L (136-145)
[2016-07-09] MEDS: NICOTINE 14 MG/24 HR TDSY TD SCH (09:00)
[2016-07-09] MEDS: CHLORHEXIDINE GLUCONATE 0.12% 480 ML MT SCH ×2 (09:00→19:30)
[2016-07-09] MEDS ORDERED: SODIUM PHOSPHATE 3 MMOL/1 ML INFUSION IV STA (09:06)
[2016-07-09] MEDS ORDERED: SODIUM CHLORIDE 0.9% 1000ML 1,000 ML IV SCH (09:30)
[2016-07-09] MEDS ORDERED: D5W AND NSS 1,000 ML IV SCH (10:00)
[2016-07-09] MEDS ORDERED: FUROSEMIDE INJ 20 MG in SYRINGE 0 ML IV ONE (10:00)
[2016-07-09] MEDS ORDERED: SODIUM PHOSPHATE INJ 21 MMOL in SODIUM CHLORIDE 0.9% 500ML 500 ML IV SCH (10:00)
[2016-07-09] MEDS: LORAZEPAM 2 MG/ML 1 ML VIAL IV PRN (10:35)
[2016-07-09] MEDS: PANTOprazole INJ 40 MG in SYRINGE 0 ML IV SCH (10:40)
[2016-07-09] MEDS: VANCOMYCIN TROUGH SCH (11:30)
[2016-07-09] MEDS ORDERED: ASCORBIC ACID 500 MG TAB PO ONE (12:13)
--- NOTE | 2016-07-09 12:22 | Critical Care Progress Note ---
Critical Care Progress Note Date of Service Jul 09, 2016. Attending Dr. Negrete Subjective Not following commands recent change to precedex sedation. Objective General Appearance: + pertinent finding (intubated, sedated) GCS 9t Neck: supple, trachea midline Respiratory/Chest: chest non-tender, + crackles (right base), + pertinent finding (intubated, ventilated) Cardiovascular: regular rate, rhythm Abdomen: normal bowel sounds Extremities: no pedal edema, + pertinent finding (right foot with dusky appearing areas through the arch of the foot as well as continued darkened/ blackened area of the distal plantar surface) Neurologic/Psychiatric: + pertinent finding (sedated) Skin: no rash, + pertinent finding (foot described above) Assessment & Plan ASSESSMENT & PLAN: This is a 50-year-old male, who lives in a homeless fci with a history of alcoholism, smoking and hypertension by chart history; presenting with left-sided rib/chest pains after a fall since last night. Alcohol withdrawal Waxing and waning mental status. Was possibly following commands per nursing recently switched from propofol to precedex sedation on empiric Librium. We will give some more time for patient clear propofol metabolites, however if mental status does not improve we will obtain EEG to rule out seizures Sepsis/bacteremia 1 out of 2 blood cultures positive.: Preliminarily [place] bacterium, likely contaminant repeat blood cultures negative of present time Continue Zosyn and vancomycin with goal to de-escalate in 48 hours Doubt pneumonia, placed chest tube to drain hemothorax and evaluate for empyema given multiple risk factors, cultures remain negative Decreasing white count Abdominal ultrasound revealed mild gallbladder wall edema. Continue to trend LFTs likely related to alcohol use May require further imaging of the lower extremity to rule out deep space infection: Wound culture preliminary is negative Possible CT maxillofacial to rule out dental abscess given multiple caries Febrile overnight Continue Zosyn and vancomycin Recheck pro calcitonin and morning Respiratory failure: -Tolerating pressure support ventilation, will attempt to wean - Suspect patient has significant COPD history, May need higher PEEP to overcome intrinsic PEEP Transaminitis Hepatitis B and C negative by antigen and antibody respectively, suspect alcoholism contributing to transaminitis Left-sided chest pain, secondary to acute left rib fractures; 4th to 7th ribs as well as left clavicle fracture secondary to accidental fall. pain control appreciate ortho input pt/ot. currently intubated Briefly touched base with pain management, for possible epidural, nerve block, not appropriate candidate at this time Hemothorax: traumatic Drained 200 mL of serosanguineous fluid, no obvious indication of infection. - Placed on to water seal anticipate discontinuation of chest tube in 24 hours, given the low output from initial drainage Hypoxia: Decreasing oxygen requirement adequate oxygenation on pressure support ventilation. Not completely convinced there is a pneumonia component at this point we'll continue to monitor Hypertension history: Discontinue clonidine as we attempted to start precedex may need medications on discharge. Hyponatremia of resolved Hyperkalemia, mild likely secondary to aggressive lesion, adequate renal function will likely be able to handle potassium load Hypophosphatemia, continue repletion secondary to malnutrition Anemia: Likely multifactorial no indication for blood transfusion at this time Thrombocytopenia, slowly improving Deep venous thrombosis prophylaxis: Start heparin subcutaneous twice a day Patient is reportedly estranged from his brother, I have discussed the case with social work, we will be attempting to move forward with a court-appointed surrogate/medical decision maker for the patient, will follow up with case management and risk management Monday. Patient continues to be critically ill I have personally spent 90 minutes of critical care time in the direct management of this patient. This is a life/ limb threatening event. This includes time spent evaluating patient, direct bedside care, chart review, placing orders, interpretation of diagnostic studies , discussion with consultants, patient, and family members, as well as other required patient management activities. This time is exclusive of all separately billable procedures, and teaching time and separate from and in addition to any other critical care service time. Data Medications: Current Inpatient Medications Medications (Trade) Dose Ordered Sig/Jaylene Route Start Time Stop Time Status Last Admin Dose Admin Tramadol HCl (Ultram Tab) 50 mg Q4H PRN PO 07/05/16 21:30 08/04/16 21:29 Nicotine (Nicoderm Cq 14MG Patch) 1 patch QAM TD 07/06/16 09:00 08/05/16 08:59 07/08/16 08:08 1 PATCH Miscellaneous (Remove Nicoderm Patch) 1 ea HS N/A 07/06/16 21:00 08/05/16 20:59 07/08/16 19:46 1 EA Oxycodone/ Acetaminophen (Percocet 5-325MG Tab) 1 tab Q4H PRN PO 07/05/16 23:15 07/19/16 23:14 07/06/16 14:07 1 TAB Morphine Sulfate (MoRPHine SULFATE INJ) 3 mg Q6H PRN IV 07/05/16 23:15 07/19/16 23:14 07/07/16 01:07 3 MG Miscellaneous (Iv Fluids Completed) 1 ea PRN PRN N/A 07/05/16 23:30 07/05/17 23:29 Acetaminophen 650 mg 650 mg Q4H PRN PO 07/06/16 01:30 08/05/16 01:29 07/06/16 19:33 650 MG Piperacillin Sod/ Tazobactam Sod/ Dextrose (Zosyn Iv/D5 100ml) 115 ml @ 28.75 mls/ hr Q8@0200,1000,1800 IV 07/06/16 18:00 07/16/16 17:59 07/09/16 10:40 28.75 MLS/HR Piperacillin Sod/ Tazobactam Sod (Consult) 1 ea UD PRN N/A 07/06/16 11:30 08/05/16 11:29 Miconazole Nitrate (Desenex Powder) 1 appln PRN PRN EXT 07/06/16 12:30 08/05/16 12:29 07/06/16 17:56 1 APPLN Magnesium Oxide 400 mg 400 mg BID PO 07/06/16 21:00 08/05/16 20:59 07/08/16 19:47 400 MG Lorazepam/Syringe (Ativan Inj/ Syringe) 1 ml @ 0.5 mls/min Q2HWA PRN IV 07/06/16 19:00 08/05/16 18:59 07/07/16 02:28 0.5 MLS/MIN Lorazepam (Ativan Inj) 3 mg Q1H PRN IV 07/07/16 02:45 08/06/16 02:44 07/09/16 10:35 3 MG Vancomycin HCl (Consult) 1 ea UD PRN N/A 07/07/16 02:45 08/06/16 02:44 Chlordiazepoxide (Librium Cap) 10 mg Q8H PO 07/09/16 06:00 07/09/16 22:01 07/09/16 05:36 10 MG Chlordiazepoxide (Librium Cap) 5 mg Q12H PO 07/10/16 08:00 07/10/16 20:01 Potassium/ Phosphorus/Sodium 1 tab 1 tab QID PO 07/07/16 09:00 08/06/16 08:59 07/08/16 19:48 1 TAB Vancomycin HCl/ Sodium Chloride (Vancomycin Inj/ Nss 250ml) 270 ml @ 125 mls/hr Q8H IV 07/07/16 12:00 07/16/16 11:59 07/09/16 04:06 125 MLS/HR Propofol (Diprivan IV 100ML VIAL) 1 dose UD PRN IV 07/07/16 16:00 07/10/16 15:59 07/09/16 01:58 1 DOSE Morphine Sulfate (MoRPHine SULFATE INJ) 2 mg Q1H PRN IV 07/07/16 16:00 07/21/16 15:59 07/08/16 17:24 2 MG Albuterol (Ventolin Hfa Inhaler) 4 puffs Q6R INH 07/07/16 21:00 08/06/16 20:59 07/09/16 07:15 4 PUFFS Ipratropium [place] (Atrovent Hfa Inhaler) 4 puffs Q6R INH 07/07/16 21:00 08/06/16 20:59 07/09/16 07:15 4 PUFFS Folic Acid 1 mg 1 mg QAM PO 07/08/16 09:00 08/07/16 08:59 07/08/16 08:09 1 MG Acetaminophen (Ofirmev Iv) 100 ml @ 400 mls/hr Q6H PRN IV 07/07/16 18:30 08/06/16 18:29 07/08/16 20:57 400 MLS/HR Chlorhexidine Gluconate 15 ml 15 ml BID MT 07/08/16 11:00 08/07/16 10:59 07/08/16 19:36 15 ML Pantoprazole Sodium/Syringe (Protonix Inj/ Syringe) 10 ml @ 5 mls/min DAILY@11 IV 07/08/16 11:00 08/07/16 10:59 07/09/16 10:40 5 MLS/MIN Enteral Nutritional Formula (Impact 1.0 Javid) 1,000 ml UD NG 07/08/16 11:30 08/07/16 11:29 07/08/16 13:38 1,000 ML Thiamine HCl 100 mg 100 mg [id number] PO 07/08/16 19:00 07/11/16 18:59 07/09/16 05:37 100 MG Dexmedetomidine HCl 400 mcg/ Sodium Chloride 100 ml @ 0 mls/hr Q0M PRN IV 07/08/16 23:30 07/12/16 23:29 07/09/16 01:57 14.9 MLS/HR Sodium Phosphate 21 mmol/Sodium Chloride 507 ml @ 126 mls/hr TODAY@1000 IV 07/09/16 10:00 07/09/16 14:02 07/09/16 10:51 126 MLS/HR Sodium Chloride (Nss 1000ml) 1,000 ml @ 75 mls/hr [id number] IV 07/09/16 09:30 08/08/16 09:29 07/09/16 10:43 75 MLS/HR I & O: 24-Hour Column 07/09/16 08:00 Intake Total 7473 ml Output Total 1235 ml Balance 6238 ml Vital Signs: Date Time Temp Pulse Resp B/P Pulse Ox O2 Delivery O2 Flow Rate FiO2 07/09/16 11:00 35 07/09/16 08:00 94 CPAP 35 Mechanical Ventilator 07/09/16 08:00 35 07/09/16 08:00 36.8 57 23 123/81 94 CPAP 35 Mechanical Ventilator 07/09/16 07:15 35 07/09/16 06:00 58 19 94 07/09/16 05:58 58 17 128/79 95 07/09/16 05:27 35 07/09/16 05:00 59 17 95 07/09/16 04:30 94 Mechanical Ventilator 35 07/09/16 04:30 35 07/09/16 04:00 36.8 60 18 95 07/09/16 03:58 60 18 118/75 95 07/09/16 03:00 61 17 94 07/09/16 02:20 35 07/09/16 02:00 36.8 63 18 94 07/09/16 01:58 64 19 113/74 94 07/09/16 01:00 66 16 94 07/09/16 00:15 94 Mechanical Ventilator 35 07/09/16 00:15 35 07/09/16 00:00 67 17 94 07/08/16 23:58 68 16 106/72 94 07/08/16 23:13 35 07/08/16 23:00 69 17 94 07/08/16 23:00 69 17 94 07/08/16 22:58 70 18 104/71 94 07/08/16 22:30 70 16 100/71 93 07/08/16 22:00 72 16 94 07/08/16 21:58 73 16 99/70 94 07/08/16 21:00 93 16 94 07/08/16 20:58 86 19 100/69 95 07/08/16 20:50 89 23 108/73 07/08/16 20:00 38.7 94 26 95 07/08/16 20:00 94 Mechanical Ventilator 35 07/08/16 20:00 35 07/08/16 19:58 99 35 119/80 95 07/08/16 19:21 35 07/08/16 19:00 94 28 95 07/08/16 18:00 97 25 102/66 92 Mechanical Ventilator 35 07/08/16 17:58 35 07/08/16 16:00 36.9 101 38 144/90 93 Mechanical Ventilator 35 07/08/16 16:00 Mechanical Ventilator 35 07/08/16 16:00 35 07/08/16 14:10 35 07/08/16 14:00 89 31 128/85 75 Mechanical Ventilator 35 07/08/16 12:00 36.5 69 33 104/69 93 Mechanical Ventilator 35 07/08/16 12:00 Mechanical Ventilator 35 07/08/16 12:00 35 Laboratory Results: Last 24 Hours Test 07/08/16 13:53 07/08/16 15:11 07/08/16 21:09 07/08/16 23:30 Potassium Level 2.9 mmol/L 5.0 mmol/L Phosphorus Level 1.9 mg/dl 2.3 mg/dl Procalcitonin 14.20 ng/mL Pleural Fluid Source LEFT LUNG Pleural Fluid Color RED Pleural Fluid Appearance BLOODY Pleural Fluid WBC 5151 /uL Pleural Fluid RBC 235532 /uL Pleural Fluid Polynuclear WBCs % 92.5 % Pleural Fluid Mononuclear WBCs % 7.5 % Pleural Fluid Total Protein 2.5 g/dl Pleural Fluid LDH 564 IU Pleural Fluid Glucose 105 mg/dl Urine Color DK YELLOW Urine Appearance CLEAR Urine pH 5.5 Urine Specific [place] 1.028 Urine Protein TRACE Urine Glucose (UA) NEG Urine Ketones NEG Urine Occult Blood 2+ Urine Nitrite NEG Urine Bilirubin NEG Urine Urobilinogen NEG Urine Leukocyte Esterase NEG Urine WBC (Auto) 1-5 /hpf Urine RBC (Auto) >30 /hpf Urine Hyaline Casts (Auto) 1-5 /lpf Urine Epithelial Cells (Auto) >30 /lpf Urine Bacteria (Auto) NEG Urine Renal Epithelial Cells 10-20 /lpf Sodium Level 143 mmol/L Chloride Level 114 mmol/L Carbon Dioxide Level 22 mmol/L Anion Gap 7.0 mmol/L Blood Urea Nitrogen 7 mg/dl Creatinine 0.31 mg/dl Est Creatinine Clear Calc Drug Dose 237.7 ml/min Estimated GFR () > 150.0 Estimated GFR (Non- > 150.0 BUN/Creatinine Ratio 21.0 Random Glucose 98 mg/dl Calcium Level 5.7 mg/dl Magnesium Level 1.6 mg/dl Test 07/09/16 05:30 07/09/16 05:45 07/09/16 08:17 07/09/16 11:36 White Blood Count 8.65 K/uL Red Blood Count 2.78 M/uL Hemoglobin 9.3 g/dL Hematocrit 26.4 % Mean Corpuscular Volume 95.0 fL Mean Corpuscular Hemoglobin 33.5 pg Mean Corpuscular Hemoglobin Concent 35.2 g/dl Platelet Count 82 K/uL Mean Platelet Volume 10.3 fL Neutrophils (%) (Auto) 74.2 % Lymphocytes (%) (Auto) 13.9 % Monocytes (%) (Auto) 10.6 % Eosinophils (%) (Auto) 0.1 % Basophils (%) (Auto) 0.3 % Neutrophils # (Auto) 6.41 K/uL Lymphocytes # (Auto) 1.20 K/uL Monocytes # (Auto) 0.92 K/uL Eosinophils # (Auto) 0.01 K/uL Basophils # (Auto) 0.03 K/uL RDW Standard Deviation 42.0 fL RDW Coefficient of Variation 12.3 % Immature Granulocyte % (Auto) 0.9 % Immature Granulocyte # (Auto) 0.08 K/uL Osmolality 291 mOsm/kg Phosphorus Level 2.2 mg/dl 2.1 mg/dl Magnesium Level 2.2 mg/dl 2.0 mg/dl Hepatitis B Surface Antigen NEG Hepatitis C Antibody NEG Sodium Level 144 mmol/L Potassium Level 5.3 mmol/L Chloride Level 117 mmol/L Carbon Dioxide Level 20 mmol/L Anion Gap 7.0 mmol/L Blood Urea Nitrogen 6 mg/dl Creatinine 0.35 mg/dl Est Creatinine Clear Calc Drug Dose 210.5 ml/min Estimated GFR () > 150.0 Estimated GFR (Non- 145.3 BUN/Creatinine Ratio 16.9 Random Glucose 90 mg/dl Calcium Level 6.2 mg/dl Vancomycin Level Trough 14.7 mcg/ml
--- NOTE | 2016-07-09 14:04 | Progress Note ---
Internal Med Progress Note Date of Service: Jul 09, 2016. Provider Documentation: SUBJECTIVE: patient current s/p intubation and sedation hemodynamics stable plan for extubation soon on NG tube feeding OBJECTIVE: Vital Signs-as noted below Exam: General-. s/p intubation ENT-sedated Neck-no neck masses Lungs-cta b/l no wheezing or crackles Heart-s1 and s2 heard regular rate and rhythm, no murmurs Abdomen-soft bowel sounds present no distension Extremities-no pedal edema no erythema foul smelling feet Neuro-s/p intubation and sedated Lab data as noted below. ASSESSMENT & PLAN: This is a 50-year-old male, who lives in a homeless senior care with a history of alcoholism, smoking and hypertension by chart history; presenting with left-sided rib/chest pains after a fall since last night. Alcohol withdrawal patient was not much responding to gabapentin protocol, iv Ativan and Librium transferred to icu and s/p intubation and Precedex drip and Diprivan continue same. Plan for EEG to rule out seizures as per critical care. Vent management and weaning as per critical acre Continue to monitor Sepsis possible pneumonia superficial skin 'gangrene of the foot? deep tissue injury as per wound care on iv fluids on vanco and Zosyn gm positive bacillin in one bottle of blood culture- corynebacterium mostly contaminant ID on board. to continue same abx for now Left-sided chest pain, secondary to acute left rib fractures; 4th to 7th ribs as well as left clavicle fracture secondary to accidental fall. pain control appreciate ortho input pt/ot. currently intubated hemothorax possibly consulted pulmonary s/p chest tube by critical care - so far no growth in pleural fluid Hypoxia, likely secondary to above. .s/p intubation currently Vent management and weaning as per critical acre Hypertension history. on clonidine prn may need medications on discharge.currently hypotensive Hyponatremia of 129 today, likely secondary to dehydration. on fluids will monitor. resolved electrolyte abnormalities hypokalemia and hypophosphatemia will replace will f/u labs Deep venous thrombosis prophylaxis: SCDs for now. DISPOSITION close monitor in ICU Vital Signs: Date Time Temp Pulse Resp B/P Pulse Ox O2 Delivery O2 Flow Rate FiO2 07/09/16 12:00 96 Mechanical Ventilator 07/09/16 12:00 35 07/09/16 12:00 60 25 138/85 97 Mechanical Ventilator 35 07/09/16 11:00 35 07/09/16 10:00 36.8 61 20 139/82 94 Mechanical Ventilator 35 07/09/16 08:00 94 CPAP 35 Mechanical Ventilator 07/09/16 08:00 35 07/09/16 08:00 36.8 57 23 123/81 94 CPAP 35 Mechanical Ventilator 07/09/16 07:15 35 07/09/16 06:00 58 19 94 07/09/16 05:58 58 17 128/79 95 07/09/16 05:27 35 07/09/16 05:00 59 17 95 07/09/16 04:30 94 Mechanical Ventilator 35 07/09/16 04:30 35 07/09/16 04:00 36.8 60 18 95 07/09/16 03:58 60 18 118/75 95 07/09/16 03:00 61 17 94 07/09/16 02:20 35 07/09/16 02:00 36.8 63 18 94 07/09/16 01:58 64 19 113/74 94 07/09/16 01:00 66 16 94 07/09/16 00:15 94 Mechanical Ventilator 35 07/09/16 00:15 35 07/09/16 00:00 67 17 94 07/08/16 23:58 68 16 106/72 94 07/08/16 23:13 35 07/08/16 23:00 69 17 94 07/08/16 23:00 69 17 94 07/08/16 22:58 70 18 104/71 94 07/08/16 22:30 70 16 100/71 93 07/08/16 22:00 72 16 94 07/08/16 21:58 73 16 99/70 94 07/08/16 21:00 93 16 94 07/08/16 20:58 86 19 100/69 95 07/08/16 20:50 89 23 108/73 07/08/16 20:00 38.7 94 26 95 07/08/16 20:00 94 Mechanical Ventilator 35 07/08/16 20:00 35 07/08/16 19:58 99 35 119/80 95 07/08/16 19:21 35 07/08/16 19:00 94 28 95 07/08/16 18:00 97 25 102/66 92 Mechanical Ventilator 35 07/08/16 17:58 35 07/08/16 16:00 36.9 101 38 144/90 93 Mechanical Ventilator 35 07/08/16 16:00 Mechanical Ventilator 35 07/08/16 16:00 35 07/08/16 14:10 35 07/08/16 14:00 89 31 128/85 75 Mechanical Ventilator 35 Lab Results: Results Past 24 Hours Test 07/08/16 15:11 07/08/16 21:09 07/08/16 23:30 07/09/16 05:30 Range/Units Pleural Fluid Source LEFT LUNG Pleural Fluid Color RED Pleural Fluid Appearance BLOODY Pleural Fluid WBC 5151 /uL Pleural Fluid RBC 979943 /uL Pleural Fluid Polynuclear WBCs % 92.5 % Pleural Fluid Mononuclear WBCs % 7.5 % Pleural Fluid Total Protein 2.5 g/dl Pleural Fluid LDH 564 IU Pleural Fluid Glucose 105 mg/dl Urine Color DK YELLOW Urine Appearance CLEAR CLEAR Urine pH 5.5 4.5-7.5 Urine Specific [place] 1.028 1.000-1.030 Urine Protein TRACE NEG Urine Glucose (UA) NEG NEG Urine Ketones NEG NEG Urine Occult Blood 2+ NEG Urine Nitrite NEG NEG Urine Bilirubin NEG NEG Urine Urobilinogen NEG NEG Urine Leukocyte Esterase NEG NEG Urine WBC (Auto) 1-5 0-5 /hpf Urine RBC (Auto) >30 0-4 /hpf Urine Hyaline Casts (Auto) 1-5 0-5 /lpf Urine Epithelial Cells (Auto) >30 0-5 /lpf Urine Bacteria (Auto) NEG NEG Urine Renal Epithelial Cells 10-20 0-5 /lpf Sodium Level 143 136-145 mmol/L Potassium Level 5.0 3.5-5.1 mmol/L Chloride Level 114 98-107 mmol/L Carbon Dioxide Level 22 21-32 mmol/L Anion Gap 7.0 3-11 mmol/L Blood Urea Nitrogen 7 7-18 mg/dl Creatinine 0.31 0.60-1.40 mg/dl Est Creatinine Clear Calc Drug Dose 237.7 ml/min Estimated GFR () > 150.0 Estimated GFR (Non- > 150.0 BUN/Creatinine Ratio 21.0 10-20 Random Glucose 98 70-99 mg/dl Calcium Level 5.7 8.5-10.1 mg/dl Phosphorus Level 2.3 2.5-4.9 mg/dl Magnesium Level 1.6 1.8-2.4 mg/dl Test 07/09/16 05:45 07/09/16 08:17 07/09/16 11:36 Range/Units White Blood Count 8.65 4.8-10.8 K/uL Red Blood Count 2.78 4.7-6.1 M/uL Hemoglobin 9.3 14.0-18.0 g/dL Hematocrit 26.4 42-52 % Mean Corpuscular Volume 95.0 80-100 fL Mean Corpuscular Hemoglobin 33.5 25-34 pg Mean Corpuscular Hemoglobin Concent 35.2 32-36 g/dl Platelet Count 82 130-400 K/uL Mean Platelet Volume 10.3 7.4-10.4 fL Neutrophils (%) (Auto) 74.2 % Lymphocytes (%) (Auto) 13.9 % Monocytes (%) (Auto) 10.6 % Eosinophils (%) (Auto) 0.1 % Basophils (%) (Auto) 0.3 % Neutrophils # (Auto) 6.41 1.4-6.5 K/uL Lymphocytes # (Auto) 1.20 1.2-3.4 K/uL Monocytes # (Auto) 0.92 0.11-0.59 K/uL Eosinophils # (Auto) 0.01 0-0.5 K/uL Basophils # (Auto) 0.03 0-0.2 K/uL RDW Standard Deviation 42.0 36.4-46.3 fL RDW Coefficient of Variation 12.3 11.5-14.5 % Immature Granulocyte % (Auto) 0.9 % Immature Granulocyte # (Auto) 0.08 0.00-0.02 K/uL Osmolality 291 280-300 mOsm/kg Phosphorus Level 2.2 2.1 2.5-4.9 mg/dl Magnesium Level 2.2 2.0 1.8-2.4 mg/dl Hepatitis B Surface Antigen NEG NEG Hepatitis C Antibody NEG NEG Sodium Level 144 136-145 mmol/L Potassium Level 5.3 3.5-5.1 mmol/L Chloride Level 117 98-107 mmol/L Carbon Dioxide Level 20 21-32 mmol/L Anion Gap 7.0 3-11 mmol/L Blood Urea Nitrogen 6 7-18 mg/dl Creatinine 0.35 0.60-1.40 mg/dl Est Creatinine Clear Calc Drug Dose 210.5 ml/min Estimated GFR () > 150.0 Estimated GFR (Non- 145.3 BUN/Creatinine Ratio 16.9 10-20 Random Glucose 90 70-99 mg/dl Calcium Level 6.2 8.5-10.1 mg/dl Vancomycin Level Trough 14.7 14.1 SEE COMMENT mcg/ml Microbiology Results 07/08/16 Blood Culture, Received Pending 07/08/16 Blood Culture, Received Pending 07/09/16 Gram Stain - Final, Resulted 07/09/16 Wound Culture, Resulted Pending 07/08/16 Fungal Smear - Final, Resulted 07/08/16 Fungal Culture, Resulted Pending 07/08/16 Acid Fast Stain, Received Pending 07/08/16 Mycobacterial Culture, Received Pending 07/08/16 Gram Stain - Final, Resulted 07/08/16 Wound Culture - Preliminary, Resulted NO GROWTH TO DATE.
--- NOTE | 2016-07-09 15:35 | Pharmacy Progress Note ---
Pharmacy Antibiotic Prog Note Date of Service: Jul 09, 2016. Subjective: The patient is currently receiving Vancomycin 1000 mg IV every 8 hours for possible Sepsis/ Pneumonia The patient is currently on day # 410 of Vancomycin IV therapy. Objective: Height (Feet): 5 Height (Inches): 11.00 Weight (Kilograms): 59.600 Levels: Item Value Date Time Vancomycin Level Trough 14.1 mcg/ml 07/09/16 1136 Lab Results (24hrs): Laboratory Tests Test 07/08/16 23:30 07/09/16 05:45 07/09/16 08:17 BUN/Creatinine Ratio 21.0 16.9 Blood Urea Nitrogen 7 mg/dl 6 mg/dl Creatinine 0.31 mg/dl 0.35 mg/dl White Blood Count 8.65 K/uL Red Blood Count 2.78 M/uL Hemoglobin 9.3 g/dL Hematocrit 26.4 % Mean Corpuscular Volume 95.0 fL Mean Corpuscular Hemoglobin 33.5 pg Mean Corpuscular Hemoglobin Concent 35.2 g/dl Platelet Count 82 K/uL Mean Platelet Volume 10.3 fL Neutrophils (%) (Auto) 74.2 % Lymphocytes (%) (Auto) 13.9 % Monocytes (%) (Auto) 10.6 % Eosinophils (%) (Auto) 0.1 % Basophils (%) (Auto) 0.3 % Neutrophils # (Auto) 6.41 K/uL Lymphocytes # (Auto) 1.20 K/uL Monocytes # (Auto) 0.92 K/uL Eosinophils # (Auto) 0.01 K/uL Basophils # (Auto) 0.03 K/uL Micro Results: New blood, wound and pleural fluid cultures pending. Recent Pertinent Medications: Also on Zosyn 3.375 gm IV q8h Assessment & Plan: * Trough Vanco level from today is near therapeutic at 14.1 (goal trough is 15- 20 mcg/ml). * Will continue Vancomycin 1 gm IV q8h. * Serum creatinine remains stable. * Will order a new trough level in 3-5 days if renal function remains stable. * Will check results for new micro ordered. Pharmacy will continue to follow and will adjust dose/frequency as necessary. Thank you
[2016-07-09 17:30] LABS: PHOSPHORUS 2.9 mg/dl (2.5-4.9)
[2016-07-09 17:31] LABS: POTASSIUM 2.9 mmol/L (3.5-5.1)
[2016-07-09] MEDS: HEPARIN SOD 5000 UNIT/0.5 ML CARP SQ SCH (19:31)
[2016-07-10] VITALS (24 sets, daily range): BP systolic 140–184; BP diastolic 82–112; PULSE 63–100; TEMP 36.6–37; O2SAT 90–97
[2016-07-10] MEDS: PIPERACILL/TAZOBAC IV 3.375 GM in DEXTROSE 5% 100ML 100 ML IV SCH ×3 (01:27→17:27)
[2016-07-10 01:45] LABS: BLOOD UREA NITROGEN 6 mg/dl (7-18); BUN/CREATININE RATIO 18.4 (10-20); CALCIUM 6.6 mg/dl (8.5-10.1); CARBON DIOXIDE 23 mmol/L (21-32); CHLORIDE 109 mmol/L (98-107); CREATININE 0.32 mg/dl (0.60-1.40); GLUCOSE 108 mg/dl (70-99); MAGNESIUM 1.5 mg/dl (1.8-2.4); POTASSIUM 2.4 mmol/L (3.5-5.1); SODIUM 143 mmol/L (136-145)
[2016-07-10] MEDS ORDERED: POTASSIUM CHLORIDE 20 MEQ/15 ML UDC NG ONE (02:00)
[2016-07-10] MEDS: POTASSIUM CHLR 10 MEQ / WTR 10 MEQ in PREMIXED WATER 100 ML IV SCH ×4 (02:08→05:46)
[2016-07-10] MEDS: MAGNESIUM SULFATE 1GM / D5W 1 GM in PREMIXED IN D5W 100 ML IV SCH ×5 (02:08→10:13)
[2016-07-10] MEDS: ALBUTEROL HFA 8 GM INHALER INH SCH ×2 (02:12→07:20)
[2016-07-10] MEDS: IPRATROPIUM BROMIDE HFA INHALER INH SCH ×2 (02:12→07:20)
[2016-07-10] MEDS: DexMEDEtomidine HCL INJ 400 MCG in SODIUM CHLORIDE 0.9% 100ML 96 ML IV PRN ×2 (02:30→06:23)
[2016-07-10] MEDS: LORAZEPAM 2 MG/ML 1 ML VIAL IV PRN ×5 (03:15→22:45)
[2016-07-10] MEDS: VANCOMYCIN INJ 1,000 MG in SODIUM CHLORIDE 0.9% 250ML 250 ML IV SCH ×3 (03:23→21:42)
[2016-07-10] MEDS: CHLORDIAZEPOXIDE 5MG Q12H DOSE PO SCH ×2 (07:52→20:20)
[2016-07-10] MEDS: THIAMINE HCL 100 MG TAB PO SCH ×5 (07:53→23:00)
[2016-07-10 07:54] LABS: HEMATOCRIT 28.6 % (42-52); MEAN CELL VOLUME 93.5 fL (80-100); MEAN CORPUSCULAR HGB CONC 36.4 g/dl (32-36); MEAN PLATELET VOLUME 10.1 fL (7.4-10.4); PLATELET COUNT 107 K/uL (130-400); RED BLOOD COUNT 3.06 M/uL (4.7-6.1); WHITE BLOOD COUNT 6.74 K/uL (4.8-10.8)
[2016-07-10] MEDS: CHLORHEXIDINE GLUCONATE 0.12% 480 ML MT SCH ×2 (07:54→21:00)
[2016-07-10] MEDS: ASCORBIC ACID 500 MG TAB PO SCH (07:55)
[2016-07-10] MEDS: NICOTINE 14 MG/24 HR TDSY TD SCH (07:55)
[2016-07-10] MEDS: HEPARIN SOD 5000 UNIT/0.5 ML CARP SQ SCH ×2 (07:57→20:30)
[2016-07-10 08:16] LABS: BASO % 0.6 %; BASO ABS # 0.04 K/uL (0-0.2); COMPLETE YES; EOS % 0.7 %; LYMPH % 19.9 %; LYMPH ABS # 1.34 K/uL (1.2-3.4); MONO % 23.9 %; NEUT % 53.9 %; TOXIC GRANULATION 1+
[2016-07-10 08:20] LABS: BLOOD UREA NITROGEN 6 mg/dl (7-18); BUN/CREATININE RATIO 15.5 (10-20); CALCIUM 6.9 mg/dl (8.5-10.1); CARBON DIOXIDE 24 mmol/L (21-32); CHLORIDE 107 mmol/L (98-107); GLUCOSE 103 mg/dl (70-99); MAGNESIUM 1.9 mg/dl (1.8-2.4); POTASSIUM 3.2 mmol/L (3.5-5.1); SODIUM 140 mmol/L (136-145)
[2016-07-10] MEDS: PANTOprazole INJ 40 MG in SYRINGE 0 ML IV SCH (10:14)
[2016-07-10] MEDS: VANCOMYCIN TROUGH SCH (10:14)
[2016-07-10 11:53] LABS: ISTAT ARTERIAL BLOOD GAS HCO3 22 meq/L (19-24); ISTAT ARTERIAL BLOOD GAS PCO2 28 mmHg (35-46); ISTAT ARTERIAL BLOOD GAS PO2 71 mmHg (80-95); ISTAT ARTERIAL BLOOD GAS pH 7.51 (7.35-7.45); ISTAT CARBON DIOXIDE 23 mEq/l (24-31); ISTAT DELIVERY SYSTEM Ventilator; ISTAT FIO2 35 %; ISTAT PEEP 8; ISTAT RATE 16; ISTAT SITE R Radial; VE 10.8; Vt 500
[2016-07-10] MEDS: ALBUT/IPRATROP 3MG/0.5MG NEB 3 ML VIAL INH SCH ×2 (14:26→19:31)
--- NOTE | 2016-07-10 16:08 | Progress Note ---
Internal Med Progress Note Date of Service: Jul 10, 2016. Provider Documentation: SUBJECTIVE: patient s/p extubation today on nasal canula open eyes drowsy afebrile OBJECTIVE: Vital Signs-as noted below Exam: General-. drowsy ENT-sedated Neck-no neck masses Lungs-cta b/l no wheezing or crackles Heart-s1 and s2 heard regular rate and rhythm, no murmurs Abdomen-soft bowel sounds present no distension Extremities-no pedal edema no erythema foul smelling feet Neuro-drowsy Lab data as noted below. ASSESSMENT & PLAN: This is a 50-year-old male, who lives in a homeless [facility] with a history of alcoholism, smoking and hypertension by chart history; presenting with left-sided rib/chest pains after a fall since last night. Alcohol withdrawal patient was not much responding to gabapentin protocol, iv Ativan and Librium transferred to icu and s/p intubation and Precedex drip and Diprivan continue same. Plan for EEG to rule out seizures as per critical care. s/p extubation today on Librium and Ativan prn Continue to monitor Sepsis possible pneumonia superficial skin 'gangrene of the foot? deep tissue injury as per wound care on iv fluids on vanco and Zosyn gm positive bacillin in one bottle of blood culture- corynebacterium mostly contaminant ID on board. to continue same abx for now cultures no growth so far Left-sided chest pain, secondary to acute left rib fractures; 4th to 7th ribs as well as left clavicle fracture secondary to accidental fall. pain control appreciate ortho input pt/ot. hemothorax possibly consulted pulmonary s/p left sided chest tube by critical care - so far no growth in pleural fluid Hypoxia, likely secondary to above. .s/p intubation and extubation today 'will monitor Hypertension history. on clonidine prn may need medications on discharge.currently hypotensive Hyponatremia of 129 today, likely secondary to dehydration. on fluids will monitor. resolved electrolyte abnormalities hypokalemia and hypophosphatemia will replace will f/u labs Deep venous thrombosis prophylaxis: SCDs for now. [facility] Vital Signs: Date Time Temp Pulse Resp B/P Pulse Ox O2 Delivery O2 Flow Rate FiO2 07/10/16 14:26 72 18 93 Nasal Cannula 4.0 07/10/16 12:00 71 22 146/82 94 Nasal Cannula 4.0 07/10/16 12:00 Nasal Cannula 4.0 07/10/16 11:20 35 07/10/16 09:00 65 20 144/89 96 Mechanical Ventilator 35 07/10/16 08:00 35 07/10/16 08:00 95 Mechanical Ventilator 35 07/10/16 08:00 36.6 65 20 151/92 97 Mechanical Ventilator 35 07/10/16 07:20 35 07/10/16 06:00 66 26 97 07/10/16 05:59 66 24 144/86 97 07/10/16 05:11 35 07/10/16 05:00 67 27 96 07/10/16 04:04 35 07/10/16 04:04 96 Mechanical Ventilator 35 07/10/16 04:00 70 97 07/10/16 03:58 36.9 71 140/88 96 07/10/16 03:00 71 30 91 07/10/16 02:13 35 07/10/16 02:00 63 21 96 07/10/16 01:59 67 24 158/87 96 07/10/16 01:00 67 25 96 07/10/16 00:05 96 Mechanical Ventilator 35 07/10/16 00:05 35 07/10/16 00:00 67 26 95 07/09/16 23:59 36.9 68 26 151/85 95 07/09/16 23:20 35 07/09/16 23:00 67 26 95 07/09/16 22:00 66 25 95 07/09/16 21:59 66 27 153/88 95 07/09/16 21:03 35 07/09/16 21:00 68 26 96 07/09/16 21:00 96 Mechanical Ventilator 35 07/09/16 20:00 67 20 96 07/09/16 19:58 37.1 68 21 151/84 96 07/09/16 19:21 35 07/09/16 19:00 72 21 97 07/09/16 17:30 35 07/09/16 17:00 74 93 07/09/16 16:58 74 150/87 94 07/09/16 16:30 70 22 98 Lab Results: Results Past 24 Hours Test 07/09/16 16:20 07/10/16 01:12 07/10/16 07:45 07/10/16 11:41 Range/Units Potassium Level 2.9 2.4 3.2 3.5-5.1 mmol/L Phosphorus Level 2.9 2.5-4.9 mg/dl Sodium Level 143 140 136-145 mmol/L Chloride Level 109 107 98-107 mmol/L Carbon Dioxide Level 23 24 21-32 mmol/L Anion Gap 11.0 9.0 3-11 mmol/L Blood Urea Nitrogen 6 6 7-18 mg/dl Creatinine 0.32 0.40 0.60-1.40 mg/dl Est Creatinine Clear Calc Drug Dose 230.2 184.2 ml/min Estimated GFR () > 150.0 > 150.0 Estimated GFR (Non- > 150.0 137.5 BUN/Creatinine Ratio 18.4 15.5 10-20 Random Glucose 108 103 70-99 mg/dl Calcium Level 6.6 6.9 8.5-10.1 mg/dl Magnesium Level 1.5 1.9 1.8-2.4 mg/dl Albumin 1.7 3.4-5.0 gm/dl White Blood Count 6.74 4.8-10.8 K/uL Red Blood Count 3.06 4.7-6.1 M/uL Hemoglobin 10.4 14.0-18.0 g/dL Hematocrit 28.6 42-52 % Mean Corpuscular Volume 93.5 80-100 fL Mean Corpuscular Hemoglobin 34.0 25-34 pg Mean Corpuscular Hemoglobin Concent 36.4 32-36 g/dl Platelet Count 107 130-400 K/uL Mean Platelet Volume 10.1 7.4-10.4 fL Neutrophils (%) (Auto) 53.9 % Lymphocytes (%) (Auto) 19.9 % Monocytes (%) (Auto) 23.9 % Eosinophils (%) (Auto) 0.7 % Basophils (%) (Auto) 0.6 % Neutrophils # (Auto) 3.63 1.4-6.5 K/uL Lymphocytes # (Auto) 1.34 1.2-3.4 K/uL Monocytes # (Auto) 1.61 0.11-0.59 K/uL Eosinophils # (Auto) 0.05 0-0.5 K/uL Basophils # (Auto) 0.04 0-0.2 K/uL RDW Standard Deviation 41.6 36.4-46.3 fL RDW Coefficient of Variation 12.2 11.5-14.5 % Immature Granulocyte % (Auto) 1.0 % Immature Granulocyte # (Auto) 0.07 0.00-0.02 K/uL Toxic Granulation 1+ Procalcitonin 4.83 0-0.5 ng/mL Blood Gas Sample Site R Radial Bedside Blood Gas pH (LAB) 7.51 7.35-7.45 Bedside Blood Gas pCO2 (LAB) 28 35-46 mmHg Bedside Blood Gas pO2 (LAB) 71 80-95 mmHg Bedside Blood Gas HCO3 (LAB) 22 19-24 meq/L Bedside Blood Gas Total CO2 23 24-31 mEq/l Bedside Blood Gas Base Excess (LAB) -1.0 -9-1.8 meq/L Bedside Blood Gas O2 Saturation 96.0 90-95 % Raymond Test NA Oxygen Delivery Device Ventilator Bedside Oxygen Rate (breaths/min) 16 Blood Gas Minute Ventilation 10.8 Bedside FiO2 35 % Blood Gas Tidal Volume 500 Blood Gas PEEP 8
--- NOTE | 2016-07-10 19:02 | Critical Care Progress Note ---
Critical Care Progress Note Date of Service Jul 10, 2016. Attending Dr. Negrete Subjective Intubated, intermittently following commands (however this may be volitional) Objective General Appearance: + pertinent finding (intubated, sedated) GCS 9t Neck: supple, trachea midline Respiratory/Chest: chest non-tender, + crackles (right base), + pertinent finding (intubated, ventilated) Cardiovascular: regular rate, rhythm Abdomen: normal bowel sounds Extremities: no pedal edema, + pertinent finding (right foot with dusky appearing areas through the arch of the foot as well as continued darkened/ blackened area of the distal plantar surface) Neurologic/Psychiatric: + pertinent finding (sedated) Skin: no rash, + pertinent finding (foot described above) Assessment & Plan This is a 50-year-old male, who lives in a homeless [facility] with a history of alcoholism, smoking and hypertension by chart history; presenting with left-sided rib/chest pains after a fall since last night. Alcohol withdrawal Waxing and waning mental status. Following commands for nursing this morning, not particularly following for me however I question if this is volitional After patient was extubated mental status was significantly improved and was able to carry on conversation staff no indication for EEG at this time Sepsis/bacteremia 1 out of 2 blood cultures positive.: Preliminarily Coney bacterium, likely contaminant repeat blood cultures negative of present time Continue Zosyn and vancomycin with goal to de-escalate in 48 hours Doubt pneumonia, placed chest tube to drain hemothorax and evaluate for empyema given multiple risk factors, cultures remain negative Decreasing white count Abdominal ultrasound revealed mild gallbladder wall edema. Continue to trend LFTs likely related to alcohol use May require further imaging of the lower extremity to rule out deep space infection: Wound culture preliminary is negative Possible CT maxillofacial to rule out dental abscess given multiple caries Afebrile Continue Zosyn and vancomycin day #4 pro calcitonin downtrending and possibly related to trauma Respiratory failure: -Tolerating pressure support ventilation, will attempt to wean - Suspect patient has significant COPD history, May need higher PEEP to overcome intrinsic PEEP Transaminitis Hepatitis B and C negative by antigen and antibody respectively, suspect alcoholism contributing to transaminitis Left-sided chest pain, secondary to acute left rib fractures; 4th to 7th ribs as well as left clavicle fracture secondary to accidental fall. pain control pt/ot. Briefly touched base with pain management, for possible epidural, nerve block, not appropriate candidate at this time Hemothorax: traumatic -Increase drainage in the last 24 hours we will continue with drain on waterseal at this point, chest x-ray tomorrow morning and will reevaluate for discontinuation Hypoxia: Resolved, extubated successfully today Hypertension history: Hold medications at this time Hyponatremia of resolved Hyperkalemia, mild likely secondary to aggressive lesion, adequate renal function will likely be able to handle potassium load Hypophosphatemia, continue repletion secondary to malnutrition Anemia: Likely multifactorial no indication for blood transfusion at this time Thrombocytopenia, slowly improving Deep venous thrombosis prophylaxis: Start heparin subcutaneous twice a day Patient is reportedly estranged from his brother, I have discussed the case with social work, and case management is aware, however patient was successfully extubated and may not need for appointed surrogate. However it would be prudent to obtain a healthcare POA should the patient require one in the future Patient remained stable 6 hours post extubation and was able to be transferred down to telemetry. Patient continues to be critically ill I have personally spent 40 minutes of critical care time in the direct management of this patient. This is a life/ limb threatening event. This includes time spent evaluating patient, direct bedside care, chart review, placing orders, interpretation of diagnostic studies , discussion with consultants, patient, and family members, as well as other required patient management activities. This time is exclusive of all separately billable procedures, and teaching time and separate from and in addition to any other critical care service time. Data Medications: Current Inpatient Medications Medications (Trade) Dose Ordered Sig/Jaylene Route Start Time Stop Time Status Last Admin Dose Admin Nicotine (Nicoderm Cq 14MG Patch) 1 patch QAM TD 07/06/16 09:00 08/05/16 08:59 07/10/16 07:55 1 PATCH Miscellaneous (Remove Nicoderm Patch) 1 ea HS N/A 07/06/16 21:00 08/05/16 20:59 07/09/16 19:40 1 EA Oxycodone/ Acetaminophen (Percocet 5-325MG Tab) 1 tab Q4H PRN PO 07/05/16 23:15 07/19/16 23:14 07/06/16 14:07 1 TAB Morphine Sulfate (MoRPHine SULFATE INJ) 3 mg Q6H PRN IV 07/05/16 23:15 07/19/16 23:14 07/07/16 01:07 3 MG Miscellaneous (Iv Fluids Completed) 1 ea PRN PRN N/A 07/05/16 23:30 07/05/17 23:29 Acetaminophen 650 mg 650 mg Q4H PRN PO 07/06/16 01:30 08/05/16 01:29 07/06/16 19:33 650 MG Piperacillin Sod/ Tazobactam Sod/ Dextrose (Zosyn Iv/D5 100ml) 115 ml @ 28.75 mls/ hr Q8@0200,1000,1800 IV 07/06/16 18:00 07/16/16 17:59 07/10/16 17:27 28.75 MLS/HR Piperacillin Sod/ Tazobactam Sod (Consult) 1 ea UD PRN N/A 07/06/16 11:30 08/05/16 11:29 Miconazole Nitrate (Desenex Powder) 1 appln PRN PRN EXT 07/06/16 12:30 08/05/16 12:29 07/06/16 17:56 1 APPLN Vancomycin HCl (Consult) 1 ea UD PRN N/A 07/07/16 02:45 08/06/16 02:44 Chlordiazepoxide 5 mg 5 mg Q12H PO 07/10/16 08:00 07/10/16 20:01 07/10/16 07:52 5 MG Vancomycin HCl/ Sodium Chloride (Vancomycin Inj/ Nss 250ml) 270 ml @ 125 mls/hr Q8H IV 07/07/16 12:00 07/16/16 11:59 07/10/16 12:00 125 MLS/HR Morphine Sulfate (MoRPHine SULFATE INJ) 2 mg Q1H PRN IV 07/07/16 16:00 07/21/16 15:59 07/08/16 17:24 2 MG Folic Acid 1 mg 1 mg QAM PO 07/08/16 09:00 08/07/16 08:59 07/10/16 07:54 1 MG Acetaminophen (Ofirmev Iv) 100 ml @ 400 mls/hr Q6H PRN IV 07/07/16 18:30 08/06/16 18:29 07/08/16 20:57 400 MLS/HR Chlorhexidine Gluconate 15 ml 15 ml BID MT 07/08/16 11:00 08/07/16 10:59 07/10/16 07:54 15 ML Pantoprazole Sodium/Syringe (Protonix Inj/ Syringe) 10 ml @ 5 mls/min DAILY@11 IV 07/08/16 11:00 08/07/16 10:59 07/10/16 10:14 5 MLS/MIN Enteral Nutritional Formula (Impact 1.0 Javid) 1,000 ml UD NG 07/08/16 11:30 08/07/16 11:29 07/08/16 13:38 1,000 ML Thiamine HCl 100 mg 100 mg 5XDQ4H PO 07/08/16 19:00 07/11/16 18:59 07/10/16 15:00 100 MG Dexmedetomidine HCl/Sodium Chloride (PreCEDEX INJ/ Nss 100ml) 100 ml @ 0 mls/hr Q0M PRN IV 07/08/16 23:30 07/12/16 23:29 07/10/16 06:23 20.7 MLS/HR Ascorbic Acid (Vitamin C Tab) 1,000 mg QAM PO 07/10/16 09:00 08/09/16 08:59 07/10/16 07:55 1,000 MG Heparin Sodium (Porcine) (Heparin Sq 5000 Unit/0.5ml) 5,000 unit Q12 SQ 07/09/16 21:00 08/08/16 20:59 07/10/16 07:57 5,000 UNIT Albuterol/ Ipratropium (Duoneb) 3 ml Q6R INH 07/10/16 15:00 08/09/16 14:59 07/10/16 14:26 3 ML Lorazepam (Ativan Inj) 1 mg Q1H PRN IV 07/10/16 16:45 08/09/16 16:44 07/10/16 17:43 2 MG I & O: 24-Hour Column 07/10/16 07:59 Intake Total 3477 ml Output Total 3890 ml Balance -413 ml Vital Signs: Date Time Temp Pulse Resp B/P Pulse Ox O2 Delivery O2 Flow Rate FiO2 07/10/16 17:21 36.7 81 24 184/98 95 Nasal Cannula 4.0 95 07/10/16 16:36 37.0 71 22 97 2.0 07/10/16 16:00 Nasal Cannula 4.0 07/10/16 16:00 37.0 99 22 168/94 97 Nasal Cannula 4.0 07/10/16 14:26 72 18 93 Nasal Cannula 4.0 07/10/16 14:00 100 16 168/94 97 Nasal Cannula 4.0 07/10/16 12:00 71 22 146/82 94 Nasal Cannula 4.0 07/10/16 12:00 Nasal Cannula 4.0 07/10/16 11:20 35 07/10/16 09:00 65 20 144/89 96 Mechanical Ventilator 35 07/10/16 08:00 35 07/10/16 08:00 95 Mechanical Ventilator 35 07/10/16 08:00 36.6 65 20 151/92 97 Mechanical Ventilator 35 07/10/16 07:20 35 07/10/16 06:00 66 26 97 07/10/16 05:59 66 24 144/86 97 07/10/16 05:11 35 07/10/16 05:00 67 27 96 07/10/16 04:04 35 07/10/16 04:04 96 Mechanical Ventilator 35 07/10/16 04:00 70 97 07/10/16 03:58 36.9 71 140/88 96 07/10/16 03:00 71 30 91 07/10/16 02:13 35 07/10/16 02:00 63 21 96 07/10/16 01:59 67 24 158/87 96 07/10/16 01:00 67 25 96 07/10/16 00:05 96 Mechanical Ventilator 35 07/10/16 00:05 35 07/10/16 00:00 67 26 95 07/09/16 23:59 36.9 68 26 151/85 95 07/09/16 23:20 35 07/09/16 23:00 67 26 95 07/09/16 22:00 66 25 95 07/09/16 21:59 66 27 153/88 95 07/09/16 21:03 35 07/09/16 21:00 68 26 96 07/09/16 21:00 96 Mechanical Ventilator 35 07/09/16 20:00 67 20 96 07/09/16 19:58 37.1 68 21 151/84 96 07/09/16 19:21 35 07/09/16 19:00 72 21 97 Laboratory Results: Last 24 Hours Test 12/25/16 01:12 07/10/16 07:45 07/10/16 11:41 Sodium Level 143 mmol/L 140 mmol/L Potassium Level 2.4 mmol/L 3.2 mmol/L Chloride Level 109 mmol/L 107 mmol/L Carbon Dioxide Level 23 mmol/L 24 mmol/L Anion Gap 11.0 mmol/L 9.0 mmol/L Blood Urea Nitrogen 6 mg/dl 6 mg/dl Creatinine 0.32 mg/dl 0.40 mg/dl Est Creatinine Clear Calc Drug Dose 230.2 ml/min 184.2 ml/min Estimated GFR () > 150.0 > 150.0 Estimated GFR (Non- > 150.0 137.5 BUN/Creatinine Ratio 18.4 15.5 Random Glucose 108 mg/dl 103 mg/dl Calcium Level 6.6 mg/dl 6.9 mg/dl Magnesium Level 1.5 mg/dl 1.9 mg/dl Albumin 1.7 gm/dl White Blood Count 6.74 K/uL Red Blood Count 3.06 M/uL Hemoglobin 10.4 g/dL Hematocrit 28.6 % Mean Corpuscular Volume 93.5 fL Mean Corpuscular Hemoglobin 34.0 pg Mean Corpuscular Hemoglobin Concent 36.4 g/dl Platelet Count 107 K/uL Mean Platelet Volume 10.1 fL Neutrophils (%) (Auto) 53.9 % Lymphocytes (%) (Auto) 19.9 % Monocytes (%) (Auto) 23.9 % Eosinophils (%) (Auto) 0.7 % Basophils (%) (Auto) 0.6 % Neutrophils # (Auto) 3.63 K/uL Lymphocytes # (Auto) 1.34 K/uL Monocytes # (Auto) 1.61 K/uL Eosinophils # (Auto) 0.05 K/uL Basophils # (Auto) 0.04 K/uL RDW Standard Deviation 41.6 fL RDW Coefficient of Variation 12.2 % Immature Granulocyte % (Auto) 1.0 % Immature Granulocyte # (Auto) 0.07 K/uL Toxic Granulation 1+ Procalcitonin 4.83 ng/mL Blood Gas Sample Site R Radial Bedside Blood Gas pH (LAB) 7.51 Bedside Blood Gas pCO2 (LAB) 28 mmHg Bedside Blood Gas pO2 (LAB) 71 mmHg Bedside Blood Gas HCO3 (LAB) 22 meq/L Bedside Blood Gas Total CO2 23 mEq/l Bedside Blood Gas Base Excess (LAB) -1.0 meq/L Bedside Blood Gas O2 Saturation 96.0 % Raymond Test NA Oxygen Delivery Device Ventilator Bedside Oxygen Rate (breaths/min) 16 Blood Gas Minute Ventilation 10.8 Bedside FiO2 35 % Blood Gas Tidal Volume 500 Blood Gas PEEP 8
[2016-07-11] VITALS (14 sets, daily range): BP systolic 146–197; BP diastolic 79–100; PULSE 90–107; TEMP 36–37.7; O2SAT 86–94
[2016-07-11] MEDS: PIPERACILL/TAZOBAC IV 3.375 GM in DEXTROSE 5% 100ML 100 ML IV SCH ×3 (00:51→18:20)
[2016-07-11] MEDS: LORAZEPAM 2 MG/ML 1 ML VIAL IV PRN ×6 (00:51→23:38)
[2016-07-11] MEDS: ALBUT/IPRATROP 3MG/0.5MG NEB 3 ML VIAL INH SCH ×4 (02:09→19:34)
[2016-07-11] MEDS: VANCOMYCIN INJ 1,000 MG in SODIUM CHLORIDE 0.9% 250ML 250 ML IV SCH ×3 (02:51→21:24)
--- NOTE | 2016-07-11 08:09 | DIAGNOSTIC IMAGING REPORT ---
CHEST ONE VIEW PORTABLE CLINICAL HISTORY: Respiratory failure. Chest tube. COMPARISON STUDY: 07/08/2016 FINDINGS: The endotracheal tube and nasogastric tubes have been removed. The heart remains enlarged. There is a left-sided chest tube in similar position. No pneumothorax is visualized. There are bilateral pleural effusions with by basilar airspace opacities.[ Several left-sided rib fractures are again visualized IMPRESSION: 1. Interval removal of the nasogastric tube and endotracheal tube 2. Indwelling left-sided chest tube 3. Bilateral pleural effusions with bibasal airspace opacities Electronically signed by: Alejandro Lucas M.D. 07/11/2016 8:08 AM
[2016-07-11] MEDS: THIAMINE HCL 100 MG TAB PO SCH ×3 (08:19→14:55)
[2016-07-11] MEDS: ASCORBIC ACID 500 MG TAB PO SCH (08:20)
[2016-07-11] MEDS: CHLORHEXIDINE GLUCONATE 0.12% 480 ML MT SCH ×2 (08:20→21:06)
[2016-07-11] MEDS: HEPARIN SOD 5000 UNIT/0.5 ML CARP SQ SCH ×2 (08:23→21:09)
[2016-07-11] MEDS: NICOTINE 14 MG/24 HR TDSY TD SCH (08:25)
[2016-07-11] MEDS: PANTOprazole INJ 40 MG in SYRINGE 0 ML IV SCH (10:17)
[2016-07-11] MEDS ORDERED: CLONIDINE HCL 0.1 MG TAB PO PRN (10:45)
[2016-07-11] MEDS ORDERED: METOPROLOL TARTRATE 1 MG/ML VIAL IV PRN ×2 (10:45→20:30)
[2016-07-11 11:03] LABS: BLOOD UREA NITROGEN 2 mg/dl (7-18); BUN/CREATININE RATIO 5.1 (10-20); CALCIUM 7.3 mg/dl (8.5-10.1); CARBON DIOXIDE 27 mmol/L (21-32); CHLORIDE 96 mmol/L (98-107); CREATININE 0.37 mg/dl (0.60-1.40); GLUCOSE 82 mg/dl (70-99); MAGNESIUM 1.3 mg/dl (1.8-2.4); PHOSPHORUS 2.7 mg/dl (2.5-4.9); POTASSIUM 2.1 mmol/L (3.5-5.1); SODIUM 135 mmol/L (136-145)
[2016-07-11] MEDS ORDERED: WTR IV STA (11:09)
[2016-07-11] MEDS ORDERED: PREMIXED WATER IV STA (11:09)
[2016-07-11] MEDS ORDERED: POTASSIUM CHLORIDE 20 MEQ TABCR PO STA (11:09)
[2016-07-11] MEDS ORDERED: POTASSIUM CHLR IV STA (11:09)
[2016-07-11] MEDS ORDERED: D5NSS + 20MEQ KCL 1,000 ML IV SCH ×2 (11:15→19:45)
[2016-07-11] MEDS: MAGNESIUM SULFATE 1GM / D5W 1 GM in PREMIXED IN D5W 100 ML IV SCH ×3 (11:47→14:53)
[2016-07-11] MEDS: POTASSIUM CHLR 10MEQ / WTR IV SCH ×6 (11:48→17:00)
[2016-07-11] MEDS ORDERED: CHLORDIAZEPOXIDE 25 MG CAP PO SCH (14:00)
--- NOTE | 2016-07-11 15:01 | Infectious Disease Progress Nt ---
Progress Note Date of Service Jul 11, 2016. Subjective Pt evaluation today including: conversation w/ patient, physical exam, chart review, lab review, review of studies, review of inpatient medication list WBC count yesterday was 6.74 with a Hgb of 10.4. Potassium this morning was down to 2.1 with chloride of 96 and sodium of 135. Pleural fluid had 5151 WBC's in it and is showing no growth on bacterial culture, no AFB, and negative fungal culture. Repeat blood cultures show no growth to date. C. Diff toxin is negative. Culture of the drainage from his foot showed no growth. He continues on IV Vancomycin and Zosyn. Abdominal U/S showed moderately edematous gallbladder wall and fatty infiltration of the liver. Repeat CXR showed removal of NG and ET tubes along with indwelling left-sided chest tube and bilateral pleural effusion with bibasilar airspace opacities. All Other Systems: Reviewed and Negative Medications Current Inpatient Medications Medications (Trade) Dose Ordered Sig/Jaylene Route Start Time Stop Time Status Last Admin Dose Admin Nicotine (Nicoderm Cq 14MG Patch) 1 patch QAM TD 07/06/16 09:00 08/05/16 08:59 07/11/16 08:25 1 PATCH Miscellaneous (Remove Nicoderm Patch) 1 ea HS N/A 07/06/16 21:00 08/05/16 20:59 07/10/16 21:00 1 EA Oxycodone/ Acetaminophen (Percocet 5-325MG Tab) 1 tab Q4H PRN PO 07/05/16 23:15 07/19/16 23:14 07/06/16 14:07 1 TAB Morphine Sulfate (MoRPHine SULFATE INJ) 3 mg Q6H PRN IV 07/05/16 23:15 07/19/16 23:14 07/07/16 01:07 3 MG Miscellaneous (Iv Fluids Completed) 1 ea PRN PRN N/A 07/05/16 23:30 07/05/17 23:29 Acetaminophen 650 mg 650 mg Q4H PRN PO 07/06/16 01:30 08/05/16 01:29 07/06/16 19:33 650 MG Piperacillin Sod/ Tazobactam Sod/ Dextrose (Zosyn Iv/D5 100ml) 115 ml @ 28.75 mls/ hr Q8@0200,1000,1800 IV 07/06/16 18:00 07/16/16 17:59 07/11/16 10:16 28.75 MLS/HR Piperacillin Sod/ Tazobactam Sod (Consult) 1 ea UD PRN N/A 07/06/16 11:30 08/05/16 11:29 Miconazole Nitrate (Desenex Powder) 1 appln PRN PRN EXT 07/06/16 12:30 08/05/16 12:29 07/06/16 17:56 1 APPLN Vancomycin HCl 1 ea 1 ea UD PRN N/A 07/07/16 02:45 08/06/16 02:44 Vancomycin HCl/ Sodium Chloride (Vancomycin Inj/ Nss 250ml) 270 ml @ 125 mls/hr Q8H IV 07/07/16 12:00 07/16/16 11:59 07/11/16 11:11 125 MLS/HR Morphine Sulfate (MoRPHine SULFATE INJ) 2 mg Q1H PRN IV 07/07/16 16:00 07/21/16 15:59 07/08/16 17:24 2 MG Folic Acid 1 mg 1 mg QAM PO 07/08/16 09:00 08/07/16 08:59 07/11/16 08:20 1 MG Acetaminophen (Ofirmev Iv) 100 ml @ 400 mls/hr Q6H PRN IV 07/07/16 18:30 08/06/16 18:29 07/08/16 20:57 400 MLS/HR Chlorhexidine Gluconate 15 ml 15 ml BID MT 07/08/16 11:00 08/07/16 10:59 07/11/16 08:20 15 ML Pantoprazole Sodium/Syringe (Protonix Inj/ Syringe) 10 ml @ 5 mls/min DAILY@11 IV 07/08/16 11:00 08/07/16 10:59 07/11/16 10:17 5 MLS/MIN Enteral Nutritional Formula (Impact 1.0 Javid) 1,000 ml UD NG 07/08/16 11:30 08/07/16 11:29 07/08/16 13:38 1,000 ML Thiamine HCl (Vitamin B-1 Tab) 100 mg 5XDQ4H PO 07/08/16 19:00 07/11/16 18:59 07/11/16 14:55 100 MG Ascorbic Acid (Vitamin C Tab) 1,000 mg QAM PO 07/10/16 09:00 08/09/16 08:59 07/11/16 08:20 1,000 MG Heparin Sodium (Porcine) (Heparin Sq 5000 Unit/0.5ml) 5,000 unit Q12 SQ 07/09/16 21:00 08/08/16 20:59 07/11/16 08:23 5,000 UNIT Albuterol/ Ipratropium (Duoneb) 3 ml Q6R INH 07/10/16 15:00 08/09/16 14:59 07/11/16 14:04 3 ML Lorazepam (Ativan Inj) 1 mg Q1H PRN IV 07/10/16 16:45 08/09/16 16:44 07/11/16 12:52 1 MG Chlordiazepoxide (Librium Cap) 25 mg TID PO 07/11/16 14:00 08/10/16 13:59 07/11/16 13:30 25 MG Metoprolol Tartrate (Lopressor Iv) 2.5 mg Q6 PRN IV 07/11/16 10:45 08/10/16 10:44 07/11/16 11:19 2.5 MG Clonidine HCl 0.1 mg 0.1 mg Q4 PRN PO 07/11/16 10:45 08/10/16 10:44 Magnesium Sulfate 1 gm/Prmx 100 ml @ 100 mls/hr Q1H IV 07/11/16 12:00 07/11/16 14:59 07/11/16 14:53 100 MLS/HR Potassium Chloride/Dextrose/ Sod Cl 1,000 ml @ 100 mls/hr Q10H IV 07/11/16 11:15 08/10/16 11:14 07/11/16 11:56 100 MLS/HR Potassium Chloride/Prmx (Kcl 10 Meq / Wtr/Premixed Water) 100 ml @ 100 mls/hr Q1H IV 07/11/16 12:00 07/11/16 17:59 07/11/16 14:51 100 MLS/HR Objective Vital Signs Date Time Temp Pulse Resp B/P Pulse Ox O2 Delivery O2 Flow Rate FiO2 07/11/16 14:05 107 20 86 Nasal Cannula 2.0 07/11/16 12:05 92 Nasal Cannula 2.0 95 07/11/16 11:22 37.1 106 25 174/100 89 Nasal Cannula 2.0 07/11/16 11:19 106 174/100 07/11/16 08:01 92 Nasal Cannula 2.0 95 07/11/16 07:05 104 20 92 Nasal Cannula 2.0 07/11/16 07:04 36.0 104 26 197/100 92 Room Air 07/11/16 04:00 Nasal Cannula 07/11/16 03:59 37.3 101 26 194/98 91 Nasal Cannula 2.5 07/11/16 02:09 90 16 91 Nasal Cannula 2.0 07/10/16 23:59 Nasal Cannula 07/10/16 23:03 36.6 93 20 167/93 93 Nasal Cannula 2.5 07/10/16 20:00 Nasal Cannula 07/10/16 19:32 92 20 90 Nasal Cannula 2.5 07/10/16 19:29 90 Nasal Cannula 2.0 07/10/16 19:20 36.9 90 22 184/112 07/10/16 17:21 36.7 81 24 184/98 95 Nasal Cannula 4.0 95 07/10/16 16:36 37.0 71 22 97 2.0 07/10/16 16:00 Nasal Cannula 4.0 07/10/16 16:00 37.0 99 22 168/94 97 Nasal Cannula 4.0 Physical Exam General Appearance: no apparent distress Eyes: sclerae normal ENT: hearing grossly normal Neck: supple, trachea midline Respiratory/Chest: chest non-tender, no respiratory distress, no accessory muscle use, + rhonchi (bilateral bases) Cardiovascular: + tachycardia Abdomen: normal bowel sounds Extremities: + pertinent finding (blackened area of the right bottom foot still with dusky appearing skin in the arch of the foot. ) Neurologic/Psychiatric: alert, normal mood/affect Skin: warm/dry, + pertinent finding (foot as above) Laboratory Results Item Value Date Time C.difficile Toxin B Gene (PCR) - Final Complete 07/11/16 0720 Stool No C. difficile toxin B gene detected Gram Stain - Final Complete 07/09/16 0347 Drainage - Surface Foot Right Blood Culture - Preliminary Resulted 07/08/16 2030 Blood NO GROWTH TO DATE. Blood Culture - Preliminary Resulted 07/08/16 2028 Blood NO GROWTH TO DATE. Fungal Smear - Final Resulted 07/08/16 1511 Pleural Fluid (Thoracentesis) Left Acid Fast Stain - Final Resulted 07/08/16 1511 Pleural Fluid (Thoracentesis) Left Gram Stain - Final Complete 07/08/16 1511 Pleural Fluid (Thoracentesis) Left Gram Stain - Final Complete 07/07/16 2018 Sputum Trach. Tube Suction CHEST ONE VIEW PORTABLE CLINICAL HISTORY: Respiratory failure. Chest tube. COMPARISON STUDY: 07/08/2016 FINDINGS: The endotracheal tube and nasogastric tubes have been removed. The heart remains enlarged. There is a left-sided chest tube in similar position. No pneumothorax is visualized. There are bilateral pleural effusions with by basilar airspace opacities.[ Several left-sided rib fractures are again visualized IMPRESSION: 1. Interval removal of the nasogastric tube and endotracheal tube 2. Indwelling left-sided chest tube 3. Bilateral pleural effusions with bibasal airspace opacities Last 24 Hours Test 07/10/16 21:00 07/11/16 10:10 Stool Occult Blood NEGATIVE Sodium Level 135 mmol/L Potassium Level 2.1 mmol/L Chloride Level 96 mmol/L Carbon Dioxide Level 27 mmol/L Anion Gap 13.0 mmol/L Blood Urea Nitrogen 2 mg/dl Creatinine 0.37 mg/dl Est Creatinine Clear Calc Drug Dose 215.5 ml/min Estimated GFR () > 150.0 Estimated GFR (Non- 142.0 BUN/Creatinine Ratio 5.1 Random Glucose 82 mg/dl Calcium Level 7.3 mg/dl Phosphorus Level 2.7 mg/dl Magnesium Level 1.3 mg/dl Assessment and Plan Patient with black area on the right foot along with likely DT's, left rib fractures, left clavicle fracture, left pleural effusion/possible hemothorax and possible aspiration pneumonia. He is currently on IV Zosyn and Vancomycin. Recommend continuation of these abx for possible foot infection and possible aspiration pneumonia/pneumonitis. Cultures have all shown no growth. Recommend CT or MRI of the right foot (if able) for evaluation of the dusky appearing area on his foot. Still with foul odor. No drainage on exam though. We will follow. Plan: 1. Continue IV Zosyn and Vancomycin 2. Recommend CT or MRI of the right foot to assess for underlying tissue injury case reviewed and agree with above assessment.
--- NOTE | 2016-07-11 15:38 | Progress Note ---
Internal Med Progress Note Date of Service: Jul 11, 2016. Provider Documentation: SUBJECTIVE: patient s/p extubation yesterday alert and awake and oriented to name only confused not able to hold much conversations shaky had a temp spike today able to take pills OBJECTIVE: Vital Signs-as noted below Exam: General-. alert and awake and confused ENT-normal hearing Neck-no neck masses Lungs-cta b/l no wheezing or crackles Heart-s1 and s2 heard tachycardia, no murmurs Abdomen-soft bowel sounds present no distension Extremities-no pedal edema no erythema foul smelling feet Neuro-alert and awake oriented x 1 moves extremities Lab data as noted below. ASSESSMENT & PLAN: This is a 50-year-old male, who lives in a homeless skilled nursing with a history of alcoholism, smoking and hypertension by chart history; presenting with left-sided rib/chest pains after a fall .Had left sideed rib fractures and possible hemothorax. Was septic from possible pneumonia and lower extremity infection? seen by ID and on iv abx.Went in to severe alcohol withdrawal and was s/p intubation and was on Precedex drip and Diprivan drip. s/p left sided chest tub. cultures no growth so far.significant electrolyte abnormalities. s/p extubation yesterday and transferred to tele. But still confused and somewhat shaky. Requiring 6lts of oxygen. Close monitor. Alcohol withdrawal patient was not much responding to gabapentin protocol, iv Ativan and Librium transferred to icu and s/p intubation and Precedex drip and Diprivan s/p extubation 07/10/16 and transferred to tele on Librium and Ativan prn- still undergoing withdrawal. will stop Librium and monitor will continue to monitor Sepsis possible pneumonia superficial skin 'gangrene of the foot? deep tissue injury? as per wound care on iv fluids on vanco and Zosyn gm positive bacillin in one bottle of blood culture- corynebacterium mostly contaminant ID on board. to continue same abx for now cultures no growth so far having temp spike today-mostly from alcohol withdrawal- will monitor Left-sided chest pain, secondary to acute left rib fractures; 4th to 7th ribs as well as left clavicle fracture secondary to accidental fall. pain control appreciate ortho input pt/ot. hemothorax consulted pulmonary s/p left sided chest tube by critical care - so far no growth in pleural fluid continue chest tube for now Hypoxia,.s/p intubation and extubation from pleural effusions sedation pneumonia/ f/u chest US requiring 6lts if worsens bipap vs reintubation 'will closely monitor Hypertension history. iv Lopressor prn on clonidine prn may need medications on discharge.currently hypotensive Hyponatremia of 129 , likely secondary to dehydration. on fluids will monitor. significant electrolyte abnormalities hypokalemia and hypophosphatemia and hypomagnesemia will replace will closely f/u labs Deep venous thrombosis prophylaxis: SCDs for now. DISPOSITION close monitor in tele [employer] service for d/c planning Vital Signs: Date Time Temp Pulse Resp B/P Pulse Ox O2 Delivery O2 Flow Rate FiO2 07/11/16 19:35 98 20 92 Nasal Cannula 6.0 07/11/16 19:28 37.0 98 30 146/89 92 Nasal Cannula 6.0 07/11/16 16:05 86 Nasal Cannula 6.0 07/11/16 15:45 87 Nasal Cannula 6.0 07/11/16 15:06 37.7 101 18 149/79 07/11/16 14:05 107 20 86 Nasal Cannula 2.0 07/11/16 12:05 92 Nasal Cannula 2.0 95 07/11/16 11:22 37.1 106 25 174/100 89 Nasal Cannula 2.0 07/11/16 11:19 106 174/100 07/11/16 08:01 92 Nasal Cannula 2.0 95 07/11/16 07:05 104 20 92 Nasal Cannula 2.0 07/11/16 07:04 36.0 104 26 197/100 92 Room Air 07/11/16 04:00 Nasal Cannula 07/11/16 03:59 37.3 101 26 194/98 91 Nasal Cannula 2.5 07/11/16 02:09 90 16 91 Nasal Cannula 2.0 07/10/16 23:59 Nasal Cannula 07/10/16 23:03 36.6 93 20 167/93 93 Nasal Cannula 2.5 Lab Results: Results Past 24 Hours Test 07/10/16 21:00 07/11/16 10:10 07/11/16 18:45 Range/Units Stool Occult Blood NEGATIVE NEGATIVE Sodium Level 135 136-145 mmol/L Potassium Level 2.1 2.7 3.5-5.1 mmol/L Chloride Level 96 98-107 mmol/L Carbon Dioxide Level 27 21-32 mmol/L Anion Gap 13.0 3-11 mmol/L Blood Urea Nitrogen 2 7-18 mg/dl Creatinine 0.37 0.60-1.40 mg/dl Est Creatinine Clear Calc Drug Dose 215.5 ml/min Estimated GFR () > 150.0 Estimated GFR (Non- 142.0 BUN/Creatinine Ratio 5.1 10-20 Random Glucose 82 70-99 mg/dl Calcium Level 7.3 8.5-10.1 mg/dl Phosphorus Level 2.7 2.5-4.9 mg/dl Magnesium Level 1.3 1.9 1.8-2.4 mg/dl Microbiology Results 07/11/16 C.difficile Toxin B Gene (PCR) - Final, Complete No C. difficile toxin B gene detected
[2016-07-11] MEDS ORDERED: LORAZEPAM 2 MG/ML 1 ML VIAL IV PRN (15:45)
[2016-07-11 19:17] LABS: MAGNESIUM 1.9 mg/dl (1.8-2.4); POTASSIUM 2.7 mmol/L (3.5-5.1)
[2016-07-11] MEDS ORDERED: THIAMINE HCL INJ 200 MG in SODIUM CHLORIDE 0.9% 50ML 50 ML IV STA (19:41)
[2016-07-11] MEDS ORDERED: POTASSIUM CHLORIDE 20 MEQ TABCR PO ONE (19:45)
[2016-07-11] MEDS ORDERED: POTASSIUM CHLORIDE 20 MEQ/15 ML UDC PO ONE (20:30)
[2016-07-11] MEDS: POTASSIUM CHLR 10 MEQ / WTR 10 MEQ in PREMIXED WATER 100 ML IV SCH ×2 (21:05→23:37)
[2016-07-11 22:36] LABS: ARTERIAL BLD GAS O2 SATURATION 96.5 % (90-95); ARTERIAL BLOOD GAS BASE EXCESS 4.7 mEq/L (-9-1.8); ARTERIAL BLOOD GAS HCO3 27 mmol/L (19-24); ARTERIAL BLOOD GAS PO2 79 mm/Hg (80-95)
--- NOTE | 2016-07-11 22:43 | DIAGNOSTIC IMAGING REPORT ---
CHEST ONE VIEW PORTABLE CLINICAL HISTORY: Chest pain and tachycardia. Follow-up exam. COMPARISON STUDY: Chest radiograph July 11, 2016 at 12:19 PM. FINDINGS: A left basilar chest tube remains in place. A small left apical pneumothorax is noted with superior pleural separation of 1 cm. This was not evident on prior exam. Multiple left-sided rib fractures are again noted. There is a trace residual left pleural effusion. There is mild left basilar opacity. A small to moderate right pleural effusion with right lower lung airspace opacity persists. Cardiac size is stable. Interstitial thickening has slightly improved. A distal left clavicular fracture is again noted. IMPRESSION: 1. Interval development of a small left apical pneumothorax. Left chest tube in place. Trace residual left pleural effusion. 2. No significant change in the small to moderate right pleural effusion with associated opacity which could reflect atelectasis or consolidation. Electronically signed by: Kalin Roberts M.D. 07/11/2016 10:41 PM
[2016-07-11 22:55] LABS: ALLEN TEST POS (POS); ARTERIAL BLOOD GAS pH 7.56 (7.35-7.45); O2 ADMINISTRATION 7L
[2016-07-11] MEDS ORDERED: LEVALBUTEROL/IPRATROPIUM NEB INH SCH (23:00)
[2016-07-11] MEDS: IPRATROPIUM BROMIDE NEB SOLN 0.02% 2.5 ML VIAL INH SCH (23:45)
[2016-07-11] MEDS: LEVALBUTEROL 1.25MG/0.5ML NEB INH SCH (23:45)
[2016-07-12] VITALS (18 sets, daily range): BP systolic 108–177; BP diastolic 64–118; PULSE 74–109; TEMP 36.7–37.6; O2SAT 93–100
[2016-07-12] MEDS: POTASSIUM CHLR 10 MEQ / WTR 10 MEQ in PREMIXED WATER 100 ML IV SCH ×8 (00:54→12:24)
[2016-07-12] MEDS: LORAZEPAM 2 MG/ML 1 ML VIAL IV PRN ×2 (01:33→09:07)
[2016-07-12] MEDS: PIPERACILL/TAZOBAC IV 3.375 GM in DEXTROSE 5% 100ML 100 ML IV SCH ×3 (02:05→17:03)
[2016-07-12] MEDS ORDERED: HydrALAZINE HCL 20 MG/ML VIAL IV. PRN (02:45)
[2016-07-12] MEDS ORDERED: NURSING VERBAL MED ORDER ONE ×2 (02:45→16:30)
[2016-07-12] MEDS: IPRATROPIUM BROMIDE NEB SOLN 0.02% 2.5 ML VIAL INH SCH ×5 (03:51→20:35)
[2016-07-12] MEDS: LEVALBUTEROL 1.25MG/0.5ML NEB INH SCH ×5 (03:51→20:35)
[2016-07-12] MEDS: VANCOMYCIN INJ 1,000 MG in SODIUM CHLORIDE 0.9% 250ML 250 ML IV SCH ×3 (04:21→19:53)
--- NOTE | 2016-07-12 04:47 | Progress Note ---
Progress Note attending addendum delayed entry patient seen 07/11/16 around 10pm noted by RN that patient was tachypneic, requiring increased o2 supplement via nasal cannula to be increased to 7 liters on exam, patient somewhat drowsy, incoherent, tachypneic RR 30s, mild accessory muscle use (+) decreased breath sounds on the right mid-base, left clear CXR: moderate right pleural effusion, small apical pneumothorax on the left with chest tube in place ABG: pH 7.56 [id number] HCO3 27 on 7 liters NC k 2.7 Nebs ordered, will defer additional Lasix due to hypokalemia transition from NC to Ventimask monitor closely at the ICU discussed with Dr. Lopez- motion picture projectionist apprentice Romario Ratliff MD
[2016-07-12 05:31] LABS: BASO % 0.2 %; BASO ABS # 0.02 K/uL (0-0.2); COMPLETE YES; EOS % 0.2 %; HEMATOCRIT 31.9 % (42-52); IG% 1.3 %; LYMPH % 9.5 %; LYMPH ABS # 1.18 K/uL (1.2-3.4); MEAN CELL VOLUME 94.1 fL (80-100); MEAN CORPUSCULAR HEMOGLOBIN 33.3 pg (25-34); MEAN CORPUSCULAR HGB CONC 35.4 g/dl (32-36); MEAN PLATELET VOLUME 9.8 fL (7.4-10.4); MONO % 18.7 %; NEUT % 70.1 %; PLATELET COUNT 253 K/uL (130-400); RED BLOOD COUNT 3.39 M/uL (4.7-6.1); WHITE BLOOD COUNT 12.43 K/uL (4.8-10.8)
[2016-07-12 05:51] LABS: BLOOD UREA NITROGEN 2 mg/dl (7-18); BUN/CREATININE RATIO 4.9 (10-20); CALCIUM 7.8 mg/dl (8.5-10.1); CARBON DIOXIDE 28 mmol/L (21-32); CHLORIDE 97 mmol/L (98-107); CREATININE 0.41 mg/dl (0.60-1.40); GLUCOSE 76 mg/dl (70-99); MAGNESIUM 2.1 mg/dl (1.8-2.4); POTASSIUM 2.8 mmol/L (3.5-5.1); SODIUM 135 mmol/L (136-145)
[2016-07-12 05:52] LABS: PHOSPHORUS 2.8 mg/dl (2.5-4.9)
[2016-07-12] MEDS ORDERED: POTASSIUM CHLORIDE 20 MEQ/15 ML UDC PO STA (07:24)
[2016-07-12] MEDS: ASCORBIC ACID 500 MG TAB PO SCH (07:36)
--- NOTE | 2016-07-12 07:36 | DIAGNOSTIC IMAGING REPORT ---
ULTRASOUND PLEURAL SPACES CLINICAL HISTORY: Pleural effusion. COMPARISON STUDY: Chest x-ray dated 07/11/2016. FINDINGS: Real-time grayscale sonography of the pleural spaces is performed to assess pleural effusions. There is a small right pleural effusion with associated atelectasis. This has an estimated volume of 172 cc. No pleural effusion is identified on the left. IMPRESSION: 1. Small right pleural effusion with an estimated volume of 172 cc. 2. No left pleural effusion is identified. Electronically signed by: Froy Lau M.D. 07/12/2016 7:34 AM
[2016-07-12] MEDS: MoRPHine SULFATE 2 MG/ML CARP IV PRN ×2 (08:42→11:58)
--- NOTE | 2016-07-12 08:42 | DIAGNOSTIC IMAGING REPORT ---
CHEST ONE VIEW PORTABLE CLINICAL HISTORY: Chest pain, tachycardia, left-sided pneumothorax. COMPARISON STUDY: 07/11/2016 FINDINGS: The cardiac and sternal contours remain stable. A left-sided pleural drainage catheter is visualized. There are bilateral pleural effusions. There are bibasal airspace opacities. No pneumothorax is visualized.[ IMPRESSION: 1. Persistent bilateral pleural effusions with bibasal airspace opacities 2. Left-sided rib fractures 3. Left clavicular fracture 4. No pneumothorax is visualized Electronically signed by: Alejandro Lucas M.D. 07/12/2016 8:40 AM
[2016-07-12] MEDS: PANTOprazole INJ 40 MG in SYRINGE 0 ML IV SCH (08:49)
[2016-07-12] MEDS: THIAMINE HCL INJ 100 MG in SYRINGE 9 ML IV SCH (08:49)
[2016-07-12] MEDS: FoLIC ACID INJ 1 MG in SYRINGE 9.8 ML IV SCH (08:49)
[2016-07-12] MEDS: CHLORHEXIDINE GLUCONATE 0.12% 480 ML MT SCH ×2 (08:50→21:00)
[2016-07-12] MEDS: NICOTINE 14 MG/24 HR TDSY TD SCH (08:50)
--- NOTE | 2016-07-12 08:59 | Pain Management Consultation ---
Pain Management Consultation Date of Consultation Jul 12, 2016. Reason for Consultation L chest wall pain with rib fx Past Medical/Surgical History (1) Alcoh Dep Nec/Nos-Unspec (2) HTN (hypertension) (3) Bronchitis (4) HTN (hypertension) (5) Bronchitis (6) Chest pain (7) Alcohol dependence (8) Closed left clavicular fracture (9) Fall as cause of accidental injury in residential institution as place of occurrence (10) Fever (11) Hypoxia (12) Fracture Calcaneus-Close (13) Hypertension Nos (14) Sprain Of Ankle Nos Social / Work History Smoking Status: Current every day smoker Smokeless Tobacco Use: Unknown Alcohol Use: heavy Marital Status: single Housing Status: other (homeless alf) Occupation: unemployed Allergies Coded Allergies: Penicillins (Unverified Adverse Reaction, Mild, TIRED, 07/06/16) Medications Current Inpatient Medications Medications (Trade) Dose Ordered Sig/Jaylene Route Start Time Stop Time Status Last Admin Dose Admin Nicotine (Nicoderm Cq 14MG Patch) 1 patch QAM TD 07/06/16 09:00 08/05/16 08:59 07/11/16 08:25 1 PATCH Miscellaneous (Remove Nicoderm Patch) 1 ea HS N/A 07/06/16 21:00 08/05/16 20:59 07/11/16 21:05 1 EA Oxycodone/ Acetaminophen (Percocet 5-325MG Tab) 1 tab Q4H PRN PO 07/05/16 23:15 07/19/16 23:14 07/06/16 14:07 1 TAB Miscellaneous (Iv Fluids Completed) 1 ea PRN PRN N/A 07/05/16 23:30 07/05/17 23:29 Acetaminophen 650 mg 650 mg Q4H PRN PO 07/06/16 01:30 08/05/16 01:29 07/06/16 19:33 650 MG Piperacillin Sod/ Tazobactam Sod/ Dextrose (Zosyn Iv/D5 100ml) 115 ml @ 28.75 mls/ hr Q8@0200,1000,1800 IV 07/06/16 18:00 07/16/16 17:59 07/12/16 02:05 28.75 MLS/HR Piperacillin Sod/ Tazobactam Sod (Consult) 1 ea UD PRN N/A 07/06/16 11:30 08/05/16 11:29 Miconazole Nitrate (Desenex Powder) 1 appln PRN PRN EXT 07/06/16 12:30 08/05/16 12:29 07/06/16 17:56 1 APPLN Vancomycin HCl 1 ea 1 ea UD PRN N/A 07/07/16 02:45 08/06/16 02:44 Vancomycin HCl/ Sodium Chloride (Vancomycin Inj/ Nss 250ml) 270 ml @ 125 mls/hr Q8H IV 07/07/16 12:00 07/16/16 11:59 07/12/16 04:21 125 MLS/HR Folic Acid 1 mg 1 mg QAM PO 07/08/16 09:00 08/07/16 08:59 Future Hold 07/11/16 08:20 1 MG Acetaminophen (Ofirmev Iv) 100 ml @ 400 mls/hr Q6H PRN IV 07/07/16 18:30 08/06/16 18:29 07/08/16 20:57 400 MLS/HR Chlorhexidine Gluconate 15 ml 15 ml BID MT 07/08/16 11:00 08/07/16 10:59 07/11/16 21:06 15 ML Pantoprazole Sodium/Syringe (Protonix Inj/ Syringe) 10 ml @ 5 mls/min DAILY@11 IV 07/08/16 11:00 08/07/16 10:59 07/11/16 10:17 5 MLS/MIN Enteral Nutritional Formula (Impact 1.0 Javid) 1,000 ml UD NG 07/08/16 11:30 08/07/16 11:29 07/08/16 13:38 1,000 ML Ascorbic Acid (Vitamin C Tab) 1,000 mg QAM PO 07/10/16 09:00 08/09/16 08:59 07/11/16 08:20 1,000 MG Heparin Sodium (Porcine) (Heparin Sq 5000 Unit/0.5ml) 5,000 unit Q12 SQ 07/09/16 21:00 08/08/16 20:59 07/11/16 21:09 5,000 UNIT Clonidine HCl 0.1 mg 0.1 mg Q4 PRN PO 07/11/16 10:45 08/10/16 10:44 Thiamine HCl 100 mg/Syringe 10 ml @ 2 mls/min QAM IV 07/12/16 09:00 08/11/16 08:59 Folic Acid/Syringe (Folvite Inj/ Syringe) 10 ml @ 5 mls/min QAM IV 07/12/16 09:00 08/11/16 08:59 Lorazepam (Ativan Inj) 1 mg Q2HWA PRN IV 07/11/16 20:00 08/10/16 19:59 07/12/16 01:33 1 MG Metoprolol Tartrate (Lopressor Iv) 2.5 mg Q6 PRN IV 07/11/16 20:30 08/10/16 20:29 Ipratropium Miles (Atrovent 0.02% 0.5MG/2.5ML Neb) 0.5 mg Q4R INH 07/12/16 00:00 08/11/16 00:00 07/12/16 03:51 0.5 MG Levalbuterol (Xopenex 1.25MG/ 0.5ML Neb) 1.25 mg Q4R INH 07/12/16 00:00 08/11/16 00:00 07/12/16 03:51 1.25 MG Hydralazine HCl 5 mg 5 mg Q6H PRN IV. 07/12/16 02:45 08/11/16 02:44 07/12/16 03:02 5 MG Potassium Chloride/Prmx (Kcl 10 Meq / Wtr/Premixed Water) 100 ml @ 100 mls/hr Q1H IV 07/12/16 08:00 07/12/16 11:59 Morphine Sulfate (MoRPHine SULFATE INJ) 2 mg Q2H PRN IV 07/12/16 08:15 07/26/16 08:14 07/12/16 08:42 2 MG Review of Systems mild SOB noted denies chest pain/abdominal pain/LE pain/headache/N/V/D Physical Exam Height & Weight: Height 5 feet, 11.00 inches. Weight 61.800 (Kilograms) 136 (Pounds) Last Vital Signs Documentation Date Time Temp Pulse Resp B/P Pulse Ox O2 Delivery O2 Flow Rate FiO2 07/12/16 06:00 105 18 154/86 93 Venturi Mask 15.0 50 07/12/16 04:00 37.0 Exam: AAO to self Pt asking questions during exam "do I need to sign anything today, where are the papers" in NAD with O2 in place Pt able to cough w/o significant distress on exam. Tender over left chest wall Pt with significant pain when repositioned in bed. Gait not observed Laboratory / Imaging Results Laboratory Results (Last CBC): 07/12/16 05:17 Red Blood Count 3.39 L, Mean Corpuscular Volume 94.1, Mean Corpuscular Hemoglobin 33.3, Mean Corpuscular Hemoglobin Concent 35.4, Mean Platelet Volume 9.8, Neutrophils (%) (Auto) 70.1, Lymphocytes (%) (Auto) 9.5, Monocytes (%) ( Auto) 18.7, Eosinophils (%) (Auto) 0.2, Basophils (%) (Auto) 0.2, Neutrophils # (Auto) 8.72 H, Lymphocytes # (Auto) 1.18 L, Monocytes # (Auto) 2.33 H, Eosinophils # (Auto) 0.02, Basophils # (Auto) 0.02 Assessment L 3-7 rib fx ETOH abuse LE wound on Abx Recommendations No role for interventional pain tx at this time d/t LE wound, increased WBC, limited pain (except for repositioning) Would recommend conservative usage of narcotics prior to repositioning=morphine 1-2mg IV (pt has not received dose since 07/08) Could utilize percocet 5/325mg PO q6prn for baseline pain if required (no dosing since 07/06) Please call with questions. Thank you Dragon Voice Recognition This chart was completed in part utilizing [employer] Voice Recognition Software. Random word insertions, pronoun errors, and incomplete sentences are an occasional consequence of this system due to software limitations and ambient noise. Any questions or concerns about the content, text or information contained within the body of this dictation should be directly addressed to the provider for clarification.
[2016-07-12] MEDS: HEPARIN SOD 5000 UNIT/0.5 ML CARP SQ SCH ×2 (09:01→21:31)
--- NOTE | 2016-07-12 10:09 | DIAGNOSTIC IMAGING REPORT ---
KUB CLINICAL HISTORY: Enteric tube placement. FINDINGS: AP, portable, supine abdominal radiograph is compared to study dated 07/07/2016. An enteric tube has been exchanged. The tube projects over the mid to distal stomach. There is a nonobstructed abdominal bowel gas pattern. No abnormal abdominal calcifications are seen. A fracture of the left iliac crest is again noted. Left-sided rib fractures are again seen. A small right pleural effusion is identified. A chest tube is seen at the left lung base. IMPRESSION: 1. An enteric tube projects over the stomach. 2. Nonobstructed abdominal bowel gas pattern. 3. Left iliac crest and rib fractures. 4. Additional findings as above. Electronically signed by: Froy Lau M.D. 07/12/2016 10:07 AM
[2016-07-12] MEDS: IMPACT LIQ 1000 ML BAG NG SCH (10:39)
[2016-07-12 12:17] LABS: LEGIONELLA ANTIGEN NOT DETECTED
[2016-07-12] MEDS: OXYCODONE/ACETAMINOPHEN 5-325 TAB PO SCH ×2 (13:59→21:27)
--- NOTE | 2016-07-12 14:00 | CRITICAL CARE PROGRESS NOTE ---
DATE: 07/12/2016 DATE: 07/12/2016. HISTORY OF PRESENT ILLNESS: The patient is known to the critical care service and this is the first time I am seeing him. He was admitted to the hospital on 07/05/2016 after presenting with falling out of bed and sustaining left-sided rib fractures. He has a history of tobacco use and was hypoxemic. He started to have alcohol withdrawal and was transferred to the intensive care unit. He required urgent intubation. He was extubated on 07/10/2016 and transferred to the floor. He returned to the intensive care unit last night secondary to tachypnea. He is now requiring a sitter and was having some liquid stool, although none this morning per the nurses. There is also a question as to whether or not last night he may have aspirated on some oral potassium and required more oxygen than he had been earlier. Also of note he did have a left-sided chest tube placed by the critical care service, which still remains. His x-ray yesterday showed a small pneumothorax. The chest tube is now on suction rather than waterseal. His care was discussed in detail on multidisciplinary rounds today. He will look at me and mumble some words. He is very difficult to understand. PHYSICAL EXAMINATION: VITAL SIGNS: Maximum temperature 37.7, heart rate 93-105, respiratory rate 18-30, blood pressure 150-170/95-100, oxygen saturation 93% on a 15 liter nonrebreather mask, 24-hour fluid balance positive 226 mL. GENERAL: He will look at me and try to follow some commands but does not do so consistently. He moves all 4 extremities. He is diffusely weak. His left eye has a mild lateral deviation and he has some twitching in his face. LUNGS: Have some coarseness bilaterally in the bases. No rhonchi or wheezes. HEART: Regular rate and rhythm. No murmurs noted. ABDOMEN: Flat, soft, nondistended, nontender. EXTREMITIES: Warm. He has very thick toenails. LABORATORY DATA: White blood cell count 12.43, hemoglobin 11.3, hematocrit 31.9, platelets 253. Sodium 135, potassium 2.8, chloride 97, CO2 28, BUN 2, creatinine 0.41, calcium 7.8, magnesium 2.1, phosphorus 2.8. Hepatitis B surface antigen negative, hepatitis C antibody negative. Urinary legionella antigen not detected. Micro C. diff 07/11 is negative. Blood cultures 07/08/2016 no growth, wound culture 07/09/2016 from the right foot no growth. Thoracentesis fluid no growth. Blood culture 07/06/2016 corynebacterium in 1 set, likely a contaminant. Portable chest x-ray from this morning shows persistent bilateral pleural effusions with bibasilar airspace opacities, left-sided rib fractures, left clavicular fracture and no pneumothorax. KUB from this morning shows a feeding tube projecting over the stomach and a nonspecific bowel gas pattern. There is a left iliac crest and rib fractures. MEDICATIONS AND INFUSIONS: Acetaminophen, vitamin C, chlorhexidine, p.r.n. clonidine, Impact 1.0, folic acid, subcutaneous heparin, p.r.n. hydralazine, Atrovent, Xopenex, p.r.n. Ativan, Lopressor, Desenex, morphine, Nicoderm, Percocet, Protonix, Zosyn day 7, vancomycin day 6, Thiamin. IMPRESSION: 1. Tachypnea, likely multifactorial. Per the ABG, he has a respiratory alkalosis. His respiratory rate does seem to wax and wane. I suspect there is an element of alcohol withdrawal involved and possibly pain as well. 2. Alcohol withdrawal syndrome. Not presently on any scheduled medications such as Librium or Ativan. He had been on Precedex as well as gabapentin. 3. Left-sided rib fractures and hemothorax status post chest tube placement. His chest x-ray last evening had showed a small pneumothorax. That seems to have since resolved. 4. Diarrhea, C. diff negative. 5. Possible aspiration last evening. He is status post speech and swallowing evaluation today. He has a feeding tube in place presently. 6. Sepsis, possible pneumonia versus a skin or deep tissue injury. I think the positive blood culture is a contaminant. He has been seen by the infectious disease service and continues on Zosyn and vancomycin. Consider discontinuing the vancomycin. 7. Hyponatremia improved. 8. Hypokalemia being repleted. PLAN: NEUROLOGY: I appreciate the pain service's input. The patient was started on some morphine today and I stressed to give the morphine before giving him any Ativan for agitation. I will begin Percocet scheduled t.i.d. I am also ordering an EEG secondary to his twitching of his face and altered mental status. Continue p.r.n. Ativan and consider Librium through the NG tube. PULMONARY: Continue chest tube on suction for today and try water seal again tomorrow. If or when he can use incentive spirometry, I think that would be beneficial for him. I do not think he is volume overloaded or that he needs any Lasix. CARDIOVASCULAR: He has been hypertensive at times, this may be secondary to pain. If it is discontinued when he is being treated consistently for pain I will start him on a low dose Catapres patch. GASTROINTESTINAL: I do not think he is safe to take p.o. presently. For the time being we will begin tube feeds and increase them to goal as tolerated. Consult the dietitian for tube feed recommendations. RENAL AND ELECTROLYTES: Replete potassium and consider free water with his tube feeds. HEMATOLOGY: No acute issues presently. MISCELLANEOUS: He is on subcutaneous heparin for DVT prophylaxis as well as Protonix for GI prophylaxis. INFECTIOUS DISEASE: Await any further infectious disease recommendations. Consider a 7-day course of both Zosyn and vancomycin. He has peripheral IVs and I would like to have a PICC line placed in him. Presently he does not have anyone to give consent for that. It is not urgent. Last, I will also order physical therapy. Please call me with any questions or concerns. LUIS EDUARDO
[2016-07-12 15:19] LABS: BLOOD UREA NITROGEN 3 mg/dl (7-18); BUN/CREATININE RATIO 8.5 (10-20); CARBON DIOXIDE 25 mmol/L (21-32); CHLORIDE 101 mmol/L (98-107); CREATININE 0.39 mg/dl (0.60-1.40); GLUCOSE 103 mg/dl (70-99); POTASSIUM 3.5 mmol/L (3.5-5.1); SODIUM 135 mmol/L (136-145)
--- NOTE | 2016-07-12 15:50 | DIAGNOSTIC IMAGING REPORT ---
CT SCAN OF THE RIGHT FOOT WITHOUT IV CONTRAST CLINICAL HISTORY: Unspecified soft tissue injury. COMPARISON STUDY: No priors. TECHNIQUE: CT scan of the right foot is performed from the ankle joint to the base of the foot. Images are reviewed in the axial, sagittal, coronal planes. IV contrast was not ministered for this examination. Note that interpretation is suboptimal without plain film correlate. CT DOSE: 1671.96 mGy.cm FINDINGS: The skeletal structures demonstrate heterogeneous osteopenia. No fracture is clearly identified. Arthritic change and mild subluxation is seen at the first metatarsophalangeal joint. There is a tiny ankle joint effusion. There is marked fatty atrophy of the regional musculature. There is mild edema of the superficial and deep soft tissues of the foot, greatest in the forefoot. No organized fluid collection is seen. No obvious cutaneous injury/defect is identified. The Achilles tendon appears intact as imaged. No radiodense foreign body is identified. IMPRESSION: 1. The skeletal structures are heterogeneously osteopenic. No acute bony abnormality is identified. 2. There is nonspecific edema of the superficial and deep soft tissues of the foot, greatest in the forefoot. Clinical correlation will be required. Electronically signed by: Froy Lau M.D. 07/12/2016 3:49 PM
[2016-07-12] MEDS ORDERED: POTASSIUM CHLORIDE 20 MEQ/15 ML UDC NG SCH (16:45)
--- NOTE | 2016-07-12 23:15 | Progress Note ---
Medicine Progress Note Date & Time of Visit: Jul 12, 2016 at 20:32. Subjective 50 yo M admitted s/p fall with rib fractures, hemothorax and subsequent chest tube placement 7 days ago. He became hypoxemic and was transferred to the ICU for intubation out of concern fore alcohol withdrawal. He was extubated on and was transferred to the floor, however, he was transferred back to the ICU overnight out of concerns for tachypnea. He became encephalopathic which was initially thought to be related to alcohol withdrawal, however, his pain was not controlled until ICU added this back. The patient appears comfortable and is currently opening his eyes to verbal stimuli but is not conversant. Therefore, could not obtain ROS Objective Last 8 Hrs Date Time Temp Pulse Resp B/P Pulse Ox O2 Delivery O2 Flow Rate FiO2 07/12/16 17:58 84 18 118/68 95 Nasal Cannula 3.0 07/12/16 16:58 78 20 128/78 96 Nasal Cannula 3.0 07/12/16 16:00 Nasal Cannula 3.0 07/12/16 15:59 36.9 80 18 133/74 95 Nasal Cannula 3.0 07/12/16 14:58 91 19 111/73 95 07/12/16 14:35 79 20 95 Nasal Cannula 4.0 07/12/16 13:59 89 26 Nasal Cannula Physical Exam: GEN: WNWD, appears comfortably sleeping, arousable by voice. HEENT: NC/AT, PERRL, normal sclerae CARDIO: reg rate, S1/2 heard without m/g/r LUNGS: CTA bilaterally, no crackles, rales or wheezes, good diaphragmatic excursion, chest tube in place on L side draining red-tinged serosanguinous fluid, bandages in place are c/d/i ABD: soft, no guarding, non-distended, +hypoactive BS EXTREMITY: RP and DP palpable 2+ bilat, no LE swelling or edema, extremities are warm and well-perfused N/M: could not be assessed 2/2 somnolence and encephalopathy SKIN: warm and dry Laboratory Results: Last 24 Hours Test 07/11/16 22:22 07/11/16 23:56 07/12/16 05:17 07/12/16 14:35 Arterial Blood pH 7.56 Arterial Blood Partial Pressure CO2 30 mmHg Arterial Blood Partial Pressure O2 79 mm/Hg Arterial Blood HCO3 27 mmol/L Arterial Blood Oxygen Saturation 96.5 % Arterial Blood Base Excess 4.7 mEq/L Arterial Blood Gas Delivery 7L Raymond Test POS Potassium Level 2.7 mmol/L 2.8 mmol/L 3.5 mmol/L White Blood Count 12.43 K/uL Red Blood Count 3.39 M/uL Hemoglobin 11.3 g/dL Hematocrit 31.9 % Mean Corpuscular Volume 94.1 fL Mean Corpuscular Hemoglobin 33.3 pg Mean Corpuscular Hemoglobin Concent 35.4 g/dl Platelet Count 253 K/uL Mean Platelet Volume 9.8 fL Neutrophils (%) (Auto) 70.1 % Lymphocytes (%) (Auto) 9.5 % Monocytes (%) (Auto) 18.7 % Eosinophils (%) (Auto) 0.2 % Basophils (%) (Auto) 0.2 % Neutrophils # (Auto) 8.72 K/uL Lymphocytes # (Auto) 1.18 K/uL Monocytes # (Auto) 2.33 K/uL Eosinophils # (Auto) 0.02 K/uL Basophils # (Auto) 0.02 K/uL RDW Standard Deviation 41.7 fL RDW Coefficient of Variation 12.2 % Immature Granulocyte % (Auto) 1.3 % Immature Granulocyte # (Auto) 0.16 K/uL Nucleated RBC Absolute Count (auto) 0.02 K/uL Nucleated Red Blood Cells % 0.2 % Sodium Level 135 mmol/L 135 mmol/L Chloride Level 97 mmol/L 101 mmol/L Carbon Dioxide Level 28 mmol/L 25 mmol/L Anion Gap 10.0 mmol/L 9.0 mmol/L Blood Urea Nitrogen 2 mg/dl 3 mg/dl Creatinine 0.41 mg/dl 0.39 mg/dl Est Creatinine Clear Calc Drug Dose 194.5 ml/min 195.9 ml/min Estimated GFR () > 150.0 > 150.0 Estimated GFR (Non- 136.1 139.0 BUN/Creatinine Ratio 4.9 8.5 Random Glucose 76 mg/dl 103 mg/dl Calcium Level 7.8 mg/dl 7.0 mg/dl Phosphorus Level 2.8 mg/dl Magnesium Level 2.1 mg/dl Test 07/12/16 15:55 Bedside Glucose 105 mg/dl Assessment & Plan This is a 50-year-old male, who lives in a homeless senior care with a history of alcoholism, smoking and hypertension by chart history; presenting with left- sided rib/chest pains after a fall. Subsequent hemothorax with chest tube placement. Was septic from possible pneumonia and lower extremity infection? seen by ID and on iv abx. Went in to severe alcohol withdrawal and was s/p intubation and was on Precedex drip and Diprivan drip. Cultures no growth so far.significant electrolyte abnormalities. s/p extubation yesterday and transferred to tele. Tachypnea overnight and was transferred back to ICU. ABG reveals respiratory alkalosis and ICU team added some scheduled pain meds with good result. 1. Tachypnea 2/2 pain vs alcohol withdrawal-cont pain control and Ativan PRN 2. Encephalopathy 2/2 pain vs withdrawal vs seizures?-ICU team noted some facial twitching and ordered EEG-pending. Cont pain control and benzos PRN 3. Left sided rib fractures and subsequent hemothorax with chest tube placement -continues to drain approx 70cc per 8 hrs. Good breath sounds on exam. 4. Sepsis-considering sources to include R foot (CT shows non-specific edema of superficial and deep tissues) vs pneumonia-continues on Vanc/Zosyn, management per ID team 5. [id number] negative, cont electrolyte replacement PRN 6. Poss aspiration contributing to tachypnea overnight. Speech and swallow eval today. Enteric feeding tube was placed. 7. Electrolyte abnormalities-management per ICU team DVT prophy: Heparin GI prophy-Protonix DISPOSITION-cont ICU care at this time. Sully Gregory DO [facility] Hospitalist Current Inpatient Medications: Current Inpatient Medications Medications (Trade) Dose Ordered Sig/Jaylene Route Start Time Stop Time Status Last Admin Dose Admin Nicotine (Nicoderm Cq 14MG Patch) 1 patch QAM TD 07/06/16 09:00 08/05/16 08:59 07/12/16 08:50 1 PATCH Miscellaneous (Remove Nicoderm Patch) 1 ea HS N/A 07/06/16 21:00 08/05/16 20:59 07/11/16 21:05 1 EA Oxycodone/ Acetaminophen (Percocet 5-325MG Tab) 1 tab Q4H PRN PO 07/05/16 23:15 07/19/16 23:14 07/06/16 14:07 1 TAB Miscellaneous (Iv Fluids Completed) 1 ea PRN PRN N/A 07/05/16 23:30 07/05/17 23:29 Acetaminophen 650 mg 650 mg Q4H PRN PO 07/06/16 01:30 08/05/16 01:29 07/06/16 19:33 650 MG Piperacillin Sod/ Tazobactam Sod/ Dextrose (Zosyn Iv/D5 100ml) 115 ml @ 28.75 mls/ hr Q8@0200,1000,1800 IV 07/06/16 18:00 07/16/16 17:59 07/12/16 17:03 28.75 MLS/HR Piperacillin Sod/ Tazobactam Sod (Consult) 1 ea UD PRN N/A 07/06/16 11:30 08/05/16 11:29 Miconazole Nitrate (Desenex Powder) 1 appln PRN PRN EXT 07/06/16 12:30 08/05/16 12:29 07/06/16 17:56 1 APPLN Vancomycin HCl 1 ea 1 ea UD PRN N/A 07/07/16 02:45 08/06/16 02:44 Vancomycin HCl/ Sodium Chloride (Vancomycin Inj/ Nss 250ml) 270 ml @ 125 mls/hr Q8H IV 07/07/16 12:00 07/16/16 11:59 07/12/16 19:53 125 MLS/HR Folic Acid 1 mg 1 mg QAM PO 07/08/16 09:00 08/07/16 08:59 Future Hold 07/11/16 08:20 1 MG Acetaminophen (Ofirmev Iv) 100 ml @ 400 mls/hr Q6H PRN IV 07/07/16 18:30 08/06/16 18:29 07/08/16 20:57 400 MLS/HR Chlorhexidine Gluconate 15 ml 15 ml BID MT 07/08/16 11:00 08/07/16 10:59 07/12/16 08:50 15 ML Pantoprazole Sodium/Syringe (Protonix Inj/ Syringe) 10 ml @ 5 mls/min DAILY@11 IV 07/08/16 11:00 08/07/16 10:59 07/12/16 08:49 5 MLS/MIN Enteral Nutritional Formula (Impact 1.0 Javid) 1,000 ml UD NG 07/08/16 11:30 08/07/16 11:29 07/12/16 10:39 1,000 ML Ascorbic Acid (Vitamin C Tab) 1,000 mg QAM PO 07/10/16 09:00 08/09/16 08:59 07/11/16 08:20 1,000 MG Heparin Sodium (Porcine) (Heparin Sq 5000 Unit/0.5ml) 5,000 unit Q12 SQ 07/09/16 21:00 08/08/16 20:59 07/12/16 09:01 5,000 UNIT Clonidine HCl 0.1 mg 0.1 mg Q4 PRN PO 07/11/16 10:45 08/10/16 10:44 Thiamine HCl 100 mg/Syringe 10 ml @ 2 mls/min QAM IV 07/12/16 09:00 08/11/16 08:59 07/12/16 08:49 2 MLS/MIN Folic Acid/Syringe (Folvite Inj/ Syringe) 10 ml @ 5 mls/min QAM IV 07/12/16 09:00 08/11/16 08:59 07/12/16 08:49 5 MLS/MIN Lorazepam (Ativan Inj) 1 mg Q2HWA PRN IV 07/11/16 20:00 08/10/16 19:59 07/12/16 09:07 1 MG Metoprolol Tartrate (Lopressor Iv) 2.5 mg Q6 PRN IV 07/11/16 20:30 08/10/16 20:29 Ipratropium [place] (Atrovent 0.02% 0.5MG/2.5ML Neb) 0.5 mg Q4R INH 07/12/16 00:00 08/11/16 00:00 07/12/16 14:35 0.5 MG Levalbuterol (Xopenex 1.25MG/ 0.5ML Neb) 1.25 mg Q4R INH 07/12/16 00:00 08/11/16 00:00 07/12/16 14:35 1.25 MG Hydralazine HCl (HydrALAZINE INJ) 5 mg Q6H PRN IV. 07/12/16 02:45 08/11/16 02:44 07/12/16 03:02 5 MG Morphine Sulfate (MoRPHine SULFATE INJ) 2 mg Q2H PRN IV 07/12/16 08:15 07/26/16 08:14 07/12/16 11:58 2 MG Oxycodone/ Acetaminophen (Percocet 5-325MG Tab) 1 tab Q8 PO 07/12/16 13:30 07/26/16 13:29 07/12/16 13:59 1 TAB
[2016-07-13] VITALS (19 sets, daily range): BP systolic 120–160; BP diastolic 75–99; PULSE 77–107; TEMP 36.9–37.3; O2SAT 90–99
[2016-07-13] MEDS: PIPERACILL/TAZOBAC IV 3.375 GM in DEXTROSE 5% 100ML 100 ML IV SCH ×3 (01:37→18:03)
[2016-07-13] MEDS: VANCOMYCIN INJ 1,000 MG in SODIUM CHLORIDE 0.9% 250ML 250 ML IV SCH ×3 (03:42→19:36)
[2016-07-13] MEDS: IPRATROPIUM BROMIDE NEB SOLN 0.02% 2.5 ML VIAL INH SCH ×7 (04:00→23:21)
[2016-07-13] MEDS: LEVALBUTEROL 1.25MG/0.5ML NEB INH SCH ×7 (04:00→23:21)
[2016-07-13] MEDS: MoRPHine SULFATE 2 MG/ML CARP IV PRN ×3 (04:39→12:30)
[2016-07-13] MEDS: OXYCODONE/ACETAMINOPHEN 5-325 TAB PO SCH ×5 (05:51→23:42)
[2016-07-13 06:28] LABS: BASO % 0.3 %; BASO ABS # 0.04 K/uL (0-0.2); COMPLETE YES; EOS % 1.1 %; HEMATOCRIT 28.5 % (42-52); IG% 1.5 %; LYMPH % 8.9 %; LYMPH ABS # 1.33 K/uL (1.2-3.4); MEAN CELL VOLUME 95.6 fL (80-100); MEAN CORPUSCULAR HEMOGLOBIN 32.9 pg (25-34); MEAN CORPUSCULAR HGB CONC 34.4 g/dl (32-36); MEAN PLATELET VOLUME 9.7 fL (7.4-10.4); MONO % 11.4 %; NEUT % 76.8 %; PLATELET COUNT 364 K/uL (130-400); RED BLOOD COUNT 2.98 M/uL (4.7-6.1); WHITE BLOOD COUNT 14.93 K/uL (4.8-10.8)
[2016-07-13 07:12] LABS: BUN/CREATININE RATIO 15.7 (10-20); CALCIUM 7.6 mg/dl (8.5-10.1); CREATININE 0.51 mg/dl (0.60-1.40); MAGNESIUM 1.8 mg/dl (1.8-2.4); POTASSIUM 3.7 mmol/L (3.5-5.1)
[2016-07-13 07:16] LABS: PHOSPHORUS 2.2 mg/dl (2.5-4.9)
[2016-07-13] MEDS: IMPACT LIQ 1000 ML BAG NG SCH (08:06)
[2016-07-13] MEDS: NICOTINE 14 MG/24 HR TDSY TD SCH (09:37)
[2016-07-13] MEDS: ASCORBIC ACID 500 MG TAB PO SCH (09:37)
[2016-07-13] MEDS: HEPARIN SOD 5000 UNIT/0.5 ML CARP SQ SCH ×2 (09:56→21:26)
[2016-07-13] MEDS: THIAMINE HCL INJ 100 MG in SYRINGE 9 ML IV SCH (09:57)
[2016-07-13] MEDS: FoLIC ACID INJ 1 MG in SYRINGE 9.8 ML IV SCH (09:57)
[2016-07-13] MEDS: CHLORHEXIDINE GLUCONATE 0.12% 480 ML MT SCH (09:57)
--- NOTE | 2016-07-13 10:12 | DIAGNOSTIC IMAGING REPORT ---
CHEST ONE VIEW PORTABLE HISTORY: Postop. pneumothorax COMPARISON: Chest 07/12/2016. FINDINGS: Left basilar chest tube remains unchanged in position. No definite left-sided pneumothorax. Nasogastric tube terminates below the diaphragm. The tip is not included on this study. The heart remains mildly enlarged. Small bilateral pleural effusions are not significantly changed. Bibasilar densities have progressed. The upper lung zones remain clear. Left clavicle and left rib fractures are again noted. IMPRESSION: 1. Left basilar chest tube is unchanged in position. No definite left-sided pneumothorax. 2. Bibasilar densities have progressed. 3. Small bilateral pleural effusions remain unchanged. Electronically signed by: Jigar Cassidy M.D. 07/13/2016 10:11 AM
[2016-07-13] MEDS ORDERED: POTASSIUM PHOS 3 MMOL/1 ML INFUSION IV STA (10:18)
[2016-07-13] MEDS ORDERED: POTASSIUM PHOSPHATE INJ 15 MMOL in SODIUM CHLORIDE 0.9% 250ML 250 ML IV SCH (11:00)
[2016-07-13] MEDS: PANTOprazole INJ 40 MG in SYRINGE 0 ML IV SCH (11:20)
[2016-07-13] MEDS ORDERED: VANCOMYCIN TROUGH ONE (11:30)
[2016-07-13] MEDS: LORAZEPAM 2 MG/ML 1 ML VIAL IV PRN (12:30)
--- NOTE | 2016-07-13 12:56 | Pharmacy Progress Note ---
Pharmacy Antibiotic Prog Note Date of Service: Jul 13, 2016. Subjective: The patient is currently receiving vancomycin 1000 mg IV every 8 hours. The patient is currently on day # 7 of vancomycin IV therapy. Objective: Height (Feet): 5 Height (Inches): 11.00 Weight (Kilograms): 63.000 Lab Results (24hrs): Laboratory Tests Test 07/12/16 14:35 07/13/16 05:51 07/13/16 05:57 BUN/Creatinine Ratio 8.5 15.7 Blood Urea Nitrogen 3 mg/dl 8 mg/dl Creatinine 0.39 mg/dl 0.51 mg/dl White Blood Count 14.93 K/uL Red Blood Count 2.98 M/uL Hemoglobin 9.8 g/dL Hematocrit 28.5 % Mean Corpuscular Volume 95.6 fL Mean Corpuscular Hemoglobin 32.9 pg Mean Corpuscular Hemoglobin Concent 34.4 g/dl Platelet Count 364 K/uL Mean Platelet Volume 9.7 fL Neutrophils (%) (Auto) 76.8 % Lymphocytes (%) (Auto) 8.9 % Monocytes (%) (Auto) 11.4 % Eosinophils (%) (Auto) 1.1 % Basophils (%) (Auto) 0.3 % Neutrophils # (Auto) 11.48 K/uL Lymphocytes # (Auto) 1.33 K/uL Monocytes # (Auto) 1.70 K/uL Eosinophils # (Auto) 0.16 K/uL Basophils # (Auto) 0.04 K/uL Assessment & Plan: Assessment * 50 yo M on Zosyn, vancomycin for sepsis 2nd PNA vs. foot infection. Today is day 8 of Zosyn and day 7 of vancomycin. ID consulted. * Renal function stable and at baseline * Patient may be at higher risk for BIPIN with both Zosyn and vancomycin on board * Goal vancomycin trough ~ 15 mcg/mL * Trough of 13.9 mcg/mL may be a little low, but will keep at current dose 2nd the following: * This is day 7 vancomycin (and may d/c soon) * May be able to target 10-15 mcg/mL as don't need > 15 mcg/mL for PNA 2nd negative nasal MRSA swab Plan * Continue vancomycin 1000 mg IV q8h * Repeat trough in about 5 days (or sooner if clinical status changes) Pharmacy will continue to follow and will adjust dose/frequency as necessary. Thank you
--- NOTE | 2016-07-13 15:56 | ELECTROENCEPHALOGRAPH REPORT ---
CLINICAL DIAGNOSIS: Change in mental status. EEG DIAGNOSIS: Essentially normal during wakefulness. DESCRIPTION OF TRACING: This EEG was done as a bedside recording on a patient who is described as confused, irritable and demented. A simultaneous video analysis of patient movement and behavior was obtained. Photic stimulation was performed. Early on there is quite a bit of muscle movement artifact and this does occur intermittently throughout the recording, but does not interfere with interpretation. During what appears to be real wakefulness, there is evidence for a background rhythm in the alpha range of up to 9 Hz of maximum frequency and of up to 30 microvolts of maximum amplitude. This is maximum in posterior head regions bilaterally symmetrical. Polymorphic mid to slightly lower frequency theta activity is seen over all head regions without clear focal or regional predominance. Anterior head region maximum bilaterally symmetrical low voltage fast activity in the beta range is present. Photic stimulation provoked some minimal driving response at posterior head regions without a photomyogenic or photoparoxysmal component. At no time during the waking tracing is there evidence for potentially epileptogenic activity in the form of polyspike or spike wave bursts, focal sharp waves or focal spikes. INTERPRETATION: This EEG is essentially normal, revealing no evidence for focal or generalized encephalopathy and no evidence for potentially epileptogenic activity. MTDD
[2016-07-13] MEDS ORDERED: DOCUSATE SODIUM 100 MG/10 ML UDC PO ONE (19:30)
[2016-07-13] MEDS: DOCUSATE SODIUM 100 MG/10 ML UDC PO SCH (19:35)
--- NOTE | 2016-07-13 21:35 | CRITICAL CARE PROGRESS NOTE ---
DATE: 07/13/2016 SUBJECTIVE: The patient's care was discussed in detail on multidisciplinary rounds today. I also talked with both the patient and his nurse this evening. This morning he had been tolerating his tube feeds of Impact at 60 mL per hour, but also ate a decent breakfast. His feeds were stopped and his diet was advanced. Today, he had an EEG which was essentially normal and it was done due to some twitching of the right side of the face and what appeared to be a laterally deviated left eye yesterday. When I talked to him, he denies painbut clearly with any movement is in pain. He refused to eat lunch and dinner today and is somehow associating eating with his Nielsen catheter. PHYSICAL EXAMINATION: VITAL SIGNS: Maximum temperature 37.3, heart rate 89-106, respiratory rate 15-20, blood pressure 127-145/80s-90s, oxygen saturation 97% on 2 liters nasal cannula. 24-hour fluid balance is -206 mL. GENERAL: He is awake and oriented to a hospital but thinks he is at [facility]. He may have trouble hearing. LUNGS: Have very decreased breath sounds throughout with moderate inspiratory effort secondary to pain. HEART: Regular rate and rhythm, no murmurs. ABDOMEN: Flat, soft, nondistended, nontender. EXTREMITIES: Warm. No edema. NEUROLOGIC: He follows commands, but is generally weak. LABORATORY DATA: White blood cell count 14.93, hemoglobin 9.8, hematocrit 28.5, platelets 364. Sodium 138, potassium 3.7, chloride 102, CO2 29, BUN 8, creatinine 0.51, and phosphorus 2.2. Portable chest x-ray this morning was reviewed and he has bibasilar densities, likely atelectasis. CT scan of the lower extremity yesterday shows nonspecific edema of the superficial and deep soft tissues of the foot, greatest in the forefoot. MEDICATIONS AND INFUSIONS: Acetaminophen, vitamin C, chlorhexidine, clonidine, Colace, folic acid, subcutaneous heparin, Atrovent, levalbuterol, Ativan, Desenex, morphine, nicotine patch, scheduled Percocet, p.r.n. Percocet, Protonix, Zosyn day 8, thiamine, vancomycin day 7. IMPRESSION: 1. Status post fall with left-sided rib fractures and hemothorax. Chest tube was placed by the critical care team last week. He was transferred to the intensive care unit for tachypnea which I suspect was secondary to pain. Now he has some bibasilar infiltrates and atelectasis. 2. Metabolic encephalopathy with normal EEG. He actually did get 1 mg of Ativan this afternoon, but has been treated for alcohol withdrawal. He is on thiamine and folate. 3. Possible sepsis, on Zosyn and vancomycin and being followed by the infectious disease service. There is no new culture data to report. Blood cultures 07/06 with Corynebacterium, likely a contaminant. He is treated for right lower lobe pneumonia as well. 4. History of tobacco use, he is on bronchodilators and a nicotine patch. 5. Diarrhea, improved. Clostridium difficile negative. 6. Hypophosphatemia. PLAN: NEUROLOGY: I increased the frequency of his Percocet today. Unfortunately, he is refusing it. I tried to help him understand why it is important, but I am not sure he is cognitively intact to understand. Continue p.r.n. morphine. Continue p.r.n. Ativan. PULMONARY: The chest tube was placed on water-seal today. He has not had any pulmonary issues today. I will check a chest x-ray tomorrow and consider pulling the chest tube. Continue bronchodilators and encourage incentive spirometry. CARDIOVASCULAR: His hypertension seems to be improving. Consider Catapres patch if he is consistently hypertensive. GASTROINTESTINAL: His tube feeds were stopped today, but unfortunately he is not taking much p.o. after breakfast. I have ordered him dietary supplements and put him on some Colace because now he feels constipated. Continue GI prophylaxis and consider beginning enteral medications. Because he is somehow associating Nielsen catheter with eating, I will discontinue it and see if he can urinate at a urinal. ELECTROLYTES: Phosphorus is being repleted today. HEMATOLOGY: His hemoglobin dropped slightly from yesterday to today. No signs of active bleeding. Recheck tomorrow. MISCELLANEOUS: Continue out of bed and physical therapy. Continue heparin for DVT prophylaxis. His next of kin or decision maker has still not yet been established. I know case management has been working diligently to try to assist us with discharge planning and decision making. He has done well over the past 24 hours. I think he is stable for transfer out of the intensive care unit. Please call me with any questions or concerns. LUIS EDUARDO
--- NOTE | 2016-07-13 22:15 | Progress Note ---
Medicine Progress Note Date & Time of Visit: Jul 13, 2016 at 20:29. Subjective -encephalopathy improved but patient is still requiring a sitter -tachypnea improved since taking the pain medication -reports some pain in his left side where the chest tube is located. Objective Last 8 Hrs Date Time Temp Pulse Resp B/P Pulse Ox O2 Delivery O2 Flow Rate FiO2 07/13/16 19:58 103 20 90 Nasal Cannula 2.0 07/13/16 18:00 37.3 89 16 145/87 93 2.0 07/13/16 16:00 37.2 95 15 127/76 93 2.0 07/13/16 16:00 97 Nasal Cannula 2.0 07/13/16 15:57 99 07/13/16 15:46 77 20 95 Nasal Cannula 2.0 07/13/16 14:00 37.0 90 21 140/83 95 2.0 Physical Exam: GEN: WNWD, appears comfortable, can say his name but starts talking about his missing coat and other non-related subjects. HEENT: NC/AT, normal sclerae CARDIO: reg rate, S1/2 heard without m/g/r LUNGS: CTA bilaterally, no crackles, rales or wheezes, good diaphragmatic excursion, chest tube in place on L side draining red-tinged serosanguinous fluid, bandages in place are c/d/i ABD: soft, no guarding, non-distended, +hypoactive BS EXTREMITY: RP and DP palpable 2+ bilat, no LE swelling or edema, extremities are warm and well-perfused N/M: could not be assessed 2/2 somnolence and encephalopathy SKIN: warm and dry Laboratory Results: Last 24 Hours Test 07/13/16 05:51 07/13/16 05:57 07/13/16 11:35 White Blood Count 14.93 K/uL Red Blood Count 2.98 M/uL Hemoglobin 9.8 g/dL Hematocrit 28.5 % Mean Corpuscular Volume 95.6 fL Mean Corpuscular Hemoglobin 32.9 pg Mean Corpuscular Hemoglobin Concent 34.4 g/dl Platelet Count 364 K/uL Mean Platelet Volume 9.7 fL Neutrophils (%) (Auto) 76.8 % Lymphocytes (%) (Auto) 8.9 % Monocytes (%) (Auto) 11.4 % Eosinophils (%) (Auto) 1.1 % Basophils (%) (Auto) 0.3 % Neutrophils # (Auto) 11.48 K/uL Lymphocytes # (Auto) 1.33 K/uL Monocytes # (Auto) 1.70 K/uL Eosinophils # (Auto) 0.16 K/uL Basophils # (Auto) 0.04 K/uL RDW Standard Deviation 43.8 fL RDW Coefficient of Variation 12.5 % Immature Granulocyte % (Auto) 1.5 % Immature Granulocyte # (Auto) 0.22 K/uL Nucleated RBC Absolute Count (auto) 0.02 K/uL Nucleated Red Blood Cells % 0.1 % Sodium Level 138 mmol/L Potassium Level 3.7 mmol/L Chloride Level 102 mmol/L Carbon Dioxide Level 29 mmol/L Anion Gap 7.0 mmol/L Blood Urea Nitrogen 8 mg/dl Creatinine 0.51 mg/dl Est Creatinine Clear Calc Drug Dose 152.7 ml/min Estimated GFR () 144.2 Estimated GFR (Non- 124.5 BUN/Creatinine Ratio 15.7 Random Glucose 90 mg/dl Calcium Level 7.6 mg/dl Phosphorus Level 2.2 mg/dl Magnesium Level 1.8 mg/dl Vancomycin Level Trough 13.9 mcg/ml Assessment & Plan This is a 50-year-old male, who lives in a homeless correction with a history of alcoholism, smoking and hypertension presenting with left-sided rib/chest pains after a fall. Subsequent hemothorax with chest tube placement. Was septic from possible pneumonia and lower extremity infection? seen by ID and on iv abx. Went in to severe alcohol withdrawal and was s/p intubation and was on Precedex drip and Diprivan drip. Was extubated shortly after and transferred to tele. Tachypneic one night later and was transferred back to ICU. Pain meds were restarted and encephalopathy is improving. Chest tube still in place and putting out 300 ml in past 24 hours. 1. Tachypnea 2/2 pain vs alcohol withdrawal-cont pain control and Ativan PRN. Pt refusing pain meds today because he says they just make him sleep. There is no tachypnea or increased work of breathing on exam today. 2. Encephalopathy 2/2 pain vs withdrawal vs seizures?-ICU team noted some facial twitching and ordered EEG was negative. Cont pain control and benzos PRN -encephalopathy is improving. Oriented to self only. 3. Left sided rib fractures s/p fall and subsequent hemothorax with chest tube placement-continues to drain approx 300 in last 24 hrs. Good breath sounds on exam. 4. Sepsis-considering sources to include R foot (CT shows non-specific edema of superficial and deep tissues) vs pneumonia-continues on Vanc/Zosyn, management per ID team. Cultures are negative to date except for 1 bottle positive for Corynebacterium thought to be a contaminant. Afebrile. 5. [id number] negative, resolved and no reported BM in last two days. 6. Poss aspiration contributing to tachypnea overnight. Speech and swallow eval yesterday and today-recs made to staff. Enteric feeding tube in place. 7. Electrolyte abnormalities-management per ICU team DVT prophy: Heparin GI prophy-Protonix DISPOSITION-cont ICU care at this time. Sully Gregory DO [facility] Hospitalist Current Inpatient Medications: Current Inpatient Medications Medications (Trade) Dose Ordered Sig/Jaylene Route Start Time Stop Time Status Last Admin Dose Admin Nicotine (Nicoderm Cq 14MG Patch) 1 patch QAM TD 07/06/16 09:00 08/05/16 08:59 07/13/16 09:37 1 PATCH Miscellaneous (Remove Nicoderm Patch) 1 ea HS N/A 07/06/16 21:00 08/05/16 20:59 07/12/16 21:29 1 EA Oxycodone/ Acetaminophen (Percocet 5-325MG Tab) 1 tab Q4H PRN PO 07/05/16 23:15 07/19/16 23:14 07/06/16 14:07 1 TAB Miscellaneous (Iv Fluids Completed) 1 ea PRN PRN N/A 07/05/16 23:30 07/05/17 23:29 Acetaminophen 650 mg 650 mg Q4H PRN PO 07/06/16 01:30 08/05/16 01:29 07/06/16 19:33 650 MG Piperacillin Sod/ Tazobactam Sod/ Dextrose (Zosyn Iv/D5 100ml) 115 ml @ 28.75 mls/ hr Q8@0200,1000,1800 IV 07/06/16 18:00 07/16/16 17:59 07/13/16 18:03 28.75 MLS/HR Piperacillin Sod/ Tazobactam Sod (Consult) 1 ea UD PRN N/A 07/06/16 11:30 08/05/16 11:29 Miconazole Nitrate (Desenex Powder) 1 appln PRN PRN EXT 07/06/16 12:30 08/05/16 12:29 07/06/16 17:56 1 APPLN Vancomycin HCl 1 ea 1 ea UD PRN N/A 07/07/16 02:45 08/06/16 02:44 Vancomycin HCl/ Sodium Chloride (Vancomycin Inj/ Nss 250ml) 270 ml @ 125 mls/hr Q8H IV 07/07/16 12:00 07/16/16 11:59 07/13/16 19:36 125 MLS/HR Folic Acid 1 mg 1 mg QAM PO 07/08/16 09:00 08/07/16 08:59 Future Hold 07/11/16 08:20 1 MG Acetaminophen 100 ml @ 400 mls/hr Q6H PRN IV 07/07/16 18:30 08/06/16 18:29 07/08/16 20:57 400 MLS/HR Pantoprazole Sodium/Syringe (Protonix Inj/ Syringe) 10 ml @ 5 mls/min DAILY@11 IV 07/08/16 11:00 08/07/16 10:59 07/13/16 11:20 5 MLS/MIN Ascorbic Acid (Vitamin C Tab) 1,000 mg QAM PO 07/10/16 09:00 08/09/16 08:59 07/13/16 09:37 1,000 MG Heparin Sodium (Porcine) (Heparin Sq 5000 Unit/0.5ml) 5,000 unit Q12 SQ 07/09/16 21:00 08/08/16 20:59 07/13/16 09:56 5,000 UNIT Clonidine HCl 0.1 mg 0.1 mg Q4 PRN PO 07/11/16 10:45 08/10/16 10:44 Thiamine HCl 100 mg/Syringe 10 ml @ 2 mls/min QAM IV 07/12/16 09:00 08/11/16 08:59 07/13/16 09:57 2 MLS/MIN Folic Acid/Syringe (Folvite Inj/ Syringe) 10 ml @ 5 mls/min QAM IV 07/12/16 09:00 08/11/16 08:59 07/13/16 09:57 5 MLS/MIN Lorazepam (Ativan Inj) 1 mg Q2HWA PRN IV 07/11/16 20:00 08/10/16 19:59 07/13/16 12:30 1 MG Ipratropium [place] (Atrovent 0.02% 0.5MG/2.5ML Neb) 0.5 mg Q4R INH 07/12/16 00:00 08/11/16 00:00 07/13/16 19:58 0.5 MG Levalbuterol (Xopenex 1.25MG/ 0.5ML Neb) 1.25 mg Q4R INH 07/12/16 00:00 08/11/16 00:00 07/13/16 19:58 1.25 MG Morphine Sulfate (MoRPHine SULFATE INJ) 2 mg Q2H PRN IV 07/12/16 08:15 07/26/16 08:14 07/13/16 12:30 2 MG Oxycodone/ Acetaminophen (Percocet 5-325MG Tab) 1 tab Q4 PO 07/13/16 12:00 07/27/16 11:59 07/13/16 19:36 1 TAB Docusate Sodium (coLACE SYRUP) 100 mg BID PO 07/13/16 21:00 08/12/16 20:59 Enteral Nutritional Formula (Boost Plus Vanilla) 1 can TIDM PO 07/14/16 07:15 08/13/16 07:14
[2016-07-14] VITALS (15 sets, daily range): BP systolic 126–163; BP diastolic 72–97; PULSE 72–118; TEMP 36.6–36.9; O2SAT 92–100
[2016-07-14] MEDS: PIPERACILL/TAZOBAC IV 3.375 GM in DEXTROSE 5% 100ML 100 ML IV SCH ×3 (01:35→17:47)
[2016-07-14] MEDS: LEVALBUTEROL 1.25MG/0.5ML NEB INH SCH ×6 (03:34→23:26)
[2016-07-14] MEDS: IPRATROPIUM BROMIDE NEB SOLN 0.02% 2.5 ML VIAL INH SCH ×6 (03:34→23:26)
[2016-07-14] MEDS: VANCOMYCIN INJ 1,000 MG in SODIUM CHLORIDE 0.9% 250ML 250 ML IV SCH ×3 (04:16→20:34)
[2016-07-14] MEDS: OXYCODONE/ACETAMINOPHEN 5-325 TAB PO SCH ×5 (04:16→20:27)
[2016-07-14 05:57] LABS: BASO % 0.2 %; BASO ABS # 0.03 K/uL (0-0.2); COMPLETE YES; EOS % 0.7 %; HEMATOCRIT 26.7 % (42-52); IG% 0.8 %; LYMPH ABS # 1.25 K/uL (1.2-3.4); MEAN CORPUSCULAR HEMOGLOBIN 33.1 pg (25-34); MEAN CORPUSCULAR HGB CONC 34.5 g/dl (32-36); MEAN PLATELET VOLUME 9.1 fL (7.4-10.4); MONO % 11.1 %; NEUT % 80.2 %; PLATELET COUNT 440 K/uL (130-400); RED BLOOD COUNT 2.78 M/uL (4.7-6.1); WHITE BLOOD COUNT 17.77 K/uL (4.8-10.8)
[2016-07-14 06:33] LABS: BUN/CREATININE RATIO 11.2 (10-20); CALCIUM 7.7 mg/dl (8.5-10.1); CREATININE 0.5 mg/dl (0.60-1.40); MAGNESIUM 1.7 mg/dl (1.8-2.4); POTASSIUM 3.2 mmol/L (3.5-5.1)
[2016-07-14 06:51] LABS: PHOSPHORUS 3.3 mg/dl (2.5-4.9)
[2016-07-14] MEDS ORDERED: POTASSIUM CHLORIDE 20 MEQ/15 ML UDC PO ONE (07:14)
[2016-07-14] MEDS: MAGNESIUM SULFATE 1GM / D5W 1 GM in PREMIXED IN D5W 100 ML IV SCH ×2 (07:36→09:11)
[2016-07-14] MEDS: POTASSIUM CHLR 10 MEQ / WTR 10 MEQ in PREMIXED WATER 100 ML IV SCH ×2 (07:36→09:10)
[2016-07-14] MEDS: BOOST PLUS VANILLA PO SCH ×6 (07:49→16:29)
--- NOTE | 2016-07-14 09:06 | DIAGNOSTIC IMAGING REPORT ---
CHEST ONE VIEW PORTABLE CLINICAL HISTORY: evaluate for pneumothorax dyspnea COMPARISON STUDY: 07/05/2016 FINDINGS: Developing components of mild congestive failure. Left basilar chest tube unchanged in location. No evidence for pneumothorax. Several left-sided rib fractures. Atelectatic change right base. IMPRESSION: 1. Interval development of components of mild congestive failure. 2. Left basilar chest tube unchanged in location with no evidence for significant pneumothorax. 3. Several left-sided rib fractures 4. Small bilateral pleural effusions similar Electronically signed by: Keven Vann M.D. 07/14/2016 9:04 AM
[2016-07-14] MEDS: THIAMINE HCL INJ 100 MG in SYRINGE 9 ML IV SCH (09:12)
[2016-07-14] MEDS: FoLIC ACID INJ 1 MG in SYRINGE 9.8 ML IV SCH (09:12)
[2016-07-14] MEDS: DOCUSATE SODIUM 100 MG/10 ML UDC PO SCH ×2 (09:12→20:26)
[2016-07-14] MEDS: ASCORBIC ACID 500 MG TAB PO SCH (09:13)
[2016-07-14] MEDS: NICOTINE 14 MG/24 HR TDSY TD SCH (09:13)
[2016-07-14] MEDS: HEPARIN SOD 5000 UNIT/0.5 ML CARP SQ SCH ×2 (09:52→20:28)
--- NOTE | 2016-07-14 10:35 | Infectious Disease Progress Nt ---
Progress Note Date of Service Jul 14, 2016. Subjective Pt evaluation today including: conversation w/ patient, physical exam, chart review, lab review, review of studies, conversation w/ banking consultant (Dr. Lopez), review of inpatient medication list Patient is feeling slightly improved today. He continues to have SOB and Dr. Lopez feels he may have had an aspiration event. Most recent Chest X-ray shows evidence of congestive failure developing. Patient continued on IV Zosyn and Vancomycin. I also spoke with pharmacy who agrees to continue for now. WBC increased to 17.[address] scan of the foot showed soft tissue edema in the right foot but nonspecific findings. Repeat C. Diff toxin was negative All Other Systems: Reviewed and Negative Medications Current Inpatient Medications Medications (Trade) Dose Ordered Sig/Jaylene Route Start Time Stop Time Status Last Admin Dose Admin Nicotine (Nicoderm Cq 14MG Patch) 1 patch QAM TD 07/06/16 09:00 08/05/16 08:59 07/14/16 09:13 1 PATCH Miscellaneous (Remove Nicoderm Patch) 1 ea HS N/A 07/06/16 21:00 08/05/16 20:59 07/13/16 21:08 1 EA Oxycodone/ Acetaminophen (Percocet 5-325MG Tab) 1 tab Q4H PRN PO 07/05/16 23:15 07/19/16 23:14 07/06/16 14:07 1 TAB Miscellaneous (Iv Fluids Completed) 1 ea PRN PRN N/A 07/05/16 23:30 07/05/17 23:29 Acetaminophen 650 mg 650 mg Q4H PRN PO 07/06/16 01:30 08/05/16 01:29 07/06/16 19:33 650 MG Piperacillin Sod/ Tazobactam Sod/ Dextrose (Zosyn Iv/D5 100ml) 115 ml @ 28.75 mls/ hr Q8@0200,1000,1800 IV 07/06/16 18:00 07/16/16 17:59 07/14/16 09:53 28.75 MLS/HR Piperacillin Sod/ Tazobactam Sod (Consult) 1 ea UD PRN N/A 07/06/16 11:30 08/05/16 11:29 Miconazole Nitrate (Desenex Powder) 1 appln PRN PRN EXT 07/06/16 12:30 1/20/17 12:29 07/06/16 17:56 1 APPLN Vancomycin HCl 1 ea 1 ea UD PRN N/A 07/07/16 02:45 08/06/16 02:44 Vancomycin HCl/ Sodium Chloride (Vancomycin Inj/ Nss 250ml) 270 ml @ 125 mls/hr Q8H IV 07/07/16 12:00 07/16/16 11:59 07/14/16 04:16 125 MLS/HR Folic Acid 1 mg 1 mg QAM PO 07/08/16 09:00 08/07/16 08:59 Future Hold 07/11/16 08:20 1 MG Acetaminophen 100 ml @ 400 mls/hr Q6H PRN IV 07/07/16 18:30 08/06/16 18:29 07/08/16 20:57 400 MLS/HR Pantoprazole Sodium/Syringe (Protonix Inj/ Syringe) 10 ml @ 5 mls/min DAILY@11 IV 07/08/16 11:00 08/07/16 10:59 07/13/16 11:20 5 MLS/MIN Ascorbic Acid (Vitamin C Tab) 1,000 mg QAM PO 07/10/16 09:00 08/09/16 08:59 07/14/16 09:13 1,000 MG Heparin Sodium (Porcine) (Heparin Sq 5000 Unit/0.5ml) 5,000 unit Q12 SQ 07/09/16 21:00 08/08/16 20:59 07/14/16 09:52 5,000 UNIT Clonidine HCl 0.1 mg 0.1 mg Q4 PRN PO 07/11/16 10:45 08/10/16 10:44 Thiamine HCl 100 mg/Syringe 10 ml @ 2 mls/min QAM IV 07/12/16 09:00 08/11/16 08:59 07/14/16 09:12 2 MLS/MIN Folic Acid/Syringe (Folvite Inj/ Syringe) 10 ml @ 5 mls/min QAM IV 07/12/16 09:00 08/11/16 08:59 07/14/16 09:12 5 MLS/MIN Lorazepam (Ativan Inj) 1 mg Q2HWA PRN IV 07/11/16 20:00 08/10/16 19:59 07/13/16 12:30 1 MG Ipratropium [place] (Atrovent 0.02% 0.5MG/2.5ML Neb) 0.5 mg Q4R INH 07/12/16 00:00 08/11/16 00:00 07/14/16 07:20 0.5 MG Levalbuterol (Xopenex 1.25MG/ 0.5ML Neb) 1.25 mg Q4R INH 07/12/16 00:00 08/11/16 00:00 07/14/16 07:20 1.25 MG Morphine Sulfate (MoRPHine SULFATE INJ) 2 mg Q2H PRN IV 07/12/16 08:15 07/26/16 08:14 07/13/16 12:30 2 MG Oxycodone/ Acetaminophen (Percocet 5-325MG Tab) 1 tab Q4 PO 07/13/16 12:00 07/27/16 11:59 07/14/16 07:48 1 TAB Docusate Sodium (coLACE SYRUP) 100 mg BID PO 07/13/16 21:00 08/12/16 20:59 07/14/16 09:12 100 MG Enteral Nutritional Formula (Boost Plus Vanilla) 1 can TIDM PO 07/14/16 07:15 08/13/16 07:14 07/14/16 07:49 1 CAN Objective Vital Signs Date Time Temp Pulse Resp B/P Pulse Ox O2 Delivery O2 Flow Rate FiO2 07/14/16 10:01 83 16 97 Nasal Cannula 2.5 07/14/16 10:00 36.6 90 16 126/72 94 Nasal Cannula 2.0 07/14/16 08:00 97 Nasal Cannula 2.0 07/14/16 08:00 36.6 97 16 158/92 100 Nasal Cannula 2.0 07/14/16 06:00 87 12 163/88 95 Nasal Cannula 2.0 07/14/16 04:00 36.7 90 20 163/97 94 Nasal Cannula 2.0 07/14/16 04:00 Nasal Cannula 2.0 07/14/16 03:35 88 17 95 Nasal Cannula 2.0 07/14/16 02:00 77 12 146/91 96 Nasal Cannula 2.0 07/14/16 00:01 Nasal Cannula 2.0 07/14/16 00:01 36.8 84 14 141/87 94 Nasal Cannula 2.0 07/13/16 23:22 83 16 94 Nasal Cannula 2.0 07/13/16 22:00 84 12 143/86 95 Nasal Cannula 2.0 07/13/16 20:00 Nasal Cannula 2.0 07/13/16 20:00 37.2 100 16 160/99 94 Nasal Cannula 2.0 07/13/16 19:58 103 20 90 Nasal Cannula 2.0 07/13/16 18:00 37.3 89 16 145/87 93 2.0 07/13/16 16:00 37.2 95 15 127/76 93 2.0 07/13/16 16:00 97 Nasal Cannula 2.0 07/13/16 15:57 99 07/13/16 15:46 77 20 95 Nasal Cannula 2.0 07/13/16 14:00 37.0 90 21 140/83 95 2.0 07/13/16 12:00 97 Nasal Cannula 2.0 07/13/16 12:00 37.0 106 19 145/90 95 2.0 07/13/16 11:41 98 20 99 Nasal Cannula 2.0 Physical Exam General Appearance: WD/WN, no apparent distress Eyes: normal inspection, sclerae normal ENT: + pertinent finding (slightly [place]) Neck: supple, trachea midline Respiratory/Chest: chest non-tender, no respiratory distress, no accessory muscle use, + rhonchi (throughout bilateral lungs- worse at bases) Cardiovascular: + tachycardia Abdomen: normal bowel sounds, non tender, soft Neurologic/Psychiatric: alert, normal mood/affect Skin: + pertinent finding (moderate continued darkening of the right distal plantar foot. No drainage. Mild odor of the foot.) Laboratory Results CHEST ONE VIEW PORTABLE CLINICAL HISTORY: evaluate for pneumothorax dyspnea COMPARISON STUDY: 07/05/2016 FINDINGS: Developing components of mild congestive failure. Left basilar chest tube unchanged in location. No evidence for pneumothorax. Several left-sided rib fractures. Atelectatic change right base. IMPRESSION: 1. Interval development of components of mild congestive failure. 2. Left basilar chest tube unchanged in location with no evidence for significant pneumothorax. 3. Several left-sided rib fractures 4. Small bilateral pleural effusions similar Item Value Date Time C.difficile Toxin B Gene (PCR) - Final Complete 07/11/16 0720 Stool No C. difficile toxin B gene detected Last 24 Hours Test 07/13/16 11:35 07/14/16 05:23 Vancomycin Level Trough 13.9 mcg/ml White Blood Count 17.77 K/uL Red Blood Count 2.78 M/uL Hemoglobin 9.2 g/dL Hematocrit 26.7 % Mean Corpuscular Volume 96.0 fL Mean Corpuscular Hemoglobin 33.1 pg Mean Corpuscular Hemoglobin Concent 34.5 g/dl Platelet Count 440 K/uL Mean Platelet Volume 9.1 fL Neutrophils (%) (Auto) 80.2 % Lymphocytes (%) (Auto) 7.0 % Monocytes (%) (Auto) 11.1 % Eosinophils (%) (Auto) 0.7 % Basophils (%) (Auto) 0.2 % Neutrophils # (Auto) 14.24 K/uL Lymphocytes # (Auto) 1.25 K/uL Monocytes # (Auto) 1.97 K/uL Eosinophils # (Auto) 0.13 K/uL Basophils # (Auto) 0.03 K/uL RDW Standard Deviation 44.5 fL RDW Coefficient of Variation 12.7 % Immature Granulocyte % (Auto) 0.8 % Immature Granulocyte # (Auto) 0.15 K/uL Sodium Level 140 mmol/L Potassium Level 3.2 mmol/L Chloride Level 104 mmol/L Carbon Dioxide Level 25 mmol/L Anion Gap 11.0 mmol/L Blood Urea Nitrogen 6 mg/dl Creatinine 0.50 mg/dl Est Creatinine Clear Calc Drug Dose 150.8 ml/min Estimated GFR () 145.4 Estimated GFR (Non- 125.5 BUN/Creatinine Ratio 11.2 Random Glucose 82 mg/dl Calcium Level 7.7 mg/dl Phosphorus Level 3.3 mg/dl Magnesium Level 1.7 mg/dl Assessment and Plan Patient with black area on the right foot along with recovering from DT's, left rib fractures, left clavicle fracture, possible new aspiration pneumonia. He is currently on IV Zosyn and Vancomycin. Recommend continuation of these abx for possible foot infection and possible aspiration pneumonia/pneumonitis to at least complete 10 days. Will change stop dates. May need further treatment with Zosyn due to continued aspiration, but we will follow and adjust. Plan: 1. Continue IV Zosyn and Vancomycin Case reviewed and agree with above assessment.
[2016-07-14] MEDS: PANTOprazole INJ 40 MG in SYRINGE 0 ML IV SCH (11:18)
--- NOTE | 2016-07-14 13:32 | CRITICAL CARE PROGRESS NOTE ---
DATE: 07/14/2016 SUBJECTIVE: There were no acute events overnight. The patient is more awake and interactive today. He did eat some breakfast and lunch today. His Nielsen was discontinued last night. His chest tube drained over 400 mL in the past 24 hours. He is now accepting some pain medication. He has not had a bowel movement in the past 24 hours. PHYSICAL EXAMINATION: VITAL SIGNS: Maximum temperature 37.2, heart rate 83-103, respiratory rate 12-20, blood pressure 125-163 over 80s-90s, oxygen saturations 98% on 2 liters nasal cannula. A 24-hour fluid balance negative 59 mL. GENERAL: He is awake and alert, oriented to hospital and year. He is asking if I can help him find arrangements to stay somewhere such as a [facility] for tonight. NEUROLOGIC: He is confused but follows commands and is generally weak. LUNGS: Decreased breath sounds in the bases, right base more so than left. No rales, rhonchi or wheezes. HEART: Regular rate and rhythm. No murmurs. ABDOMEN: Flat, soft, nondistended, nontender. EXTREMITIES: Warm. No edema. LABORATORY DATA: White blood cell count 17.77, hemoglobin 9.2, hematocrit 26.7, platelets 440. Sodium 140, potassium 3.2, chloride 104, CO2 25, BUN 6, creatinine 0.5, calcium 7.7, phosphorus 3.3, magnesium 1.7, PT 11.1, INR 1. MEDICATIONS AND INFUSIONS: Acetaminophen, Mucomyst, vitamin C, clonidine, Colace, Boost, folic acid, subcutaneous heparin, Atrovent, Xopenex, Ativan, Desenex, morphine, nicotine, Percocet, Protonix, Zosyn, thiamine, vancomycin. IMPRESSION: 1. Status post fall with left-sided rib fractures and hemothorax. Status post Left chest tube when he was in the intensive care unit last week. He continues to drain over 400 mL in the past 24 hours. Chest x-ray is without pneumothorax and it is on water seal. 2. Metabolic encephalopathy, improving. He has a history of alcohol abuse and has gone through delirium tremens. He got 1 dose of Ativan yesterday. 3. Possible sepsis, Zosyn day 9, vancomycin day 8. CT of the foot was not indicative of infection. The wound care team scraped off that dark, dry skin earlier today. The foot looks much better. 4. Aspiration pneumonia versus pneumonitis. He may be developing an infiltrate in the right base. The reason he was transferred to the ICU was for tachypnea after potential aspiration. Zosyn should cover developing pneumonia. 5. History of tobacco abuse. 6. Diarrhea, resolved. 7. Hypophosphatemia, improved. 8. Hypokalemia. 9. Protein calorie malnutrition. PLAN: 1. Neurology: Continue scheduled Percocet as well as p.r.n. Percocet and p.r.n. morphine. I would like to discontinue the chest tube, which may be contributing to his pain but will wait another 24 hours to see how much it drains. Continue p.r.n. Ativan as well. 2. Pulmonary: Chest tube as above. Continue bronchodilators and watch for any worsening of his respiratory status. 3. Cardiovascular: Hypertension has improved. No other active issues. 4. GI: Encourage him to take his Ensure and eat his tray. I have left the feeding tube and ordered calorie counts. Continue GI prophylaxis. 5. Electrolytes. They are being repleted. 6. Renal: No acute issues. Watch volume status. 7. Infectious Disease: Antibiotics per ID recommendations 8.. Miscellaneous. Continue physical therapy. Continue DVT and GI prophylaxis. Case management has been able to contact his [id number] and hopes to speak with the patient's brother. Should he need consent for procedures, etc. it sounds as if the brother would potentially be willing to make them. He is stable for transfer to the floor. LUIS EDUARDO
[2016-07-14] MEDS: ACETYLCYSTEINE 20% INHAL SOLN ***DISPENSED BY RESP. INH SCH ×2 (15:00→20:36)
[2016-07-15] VITALS (9 sets, daily range): BP systolic 164–180; BP diastolic 83–94; PULSE 73–99; TEMP 36.6–37.3; O2SAT 91–99; Ht 180.3 cm; Wt 52.7 kg
[2016-07-15] MEDS: PIPERACILL/TAZOBAC IV 3.375 GM in DEXTROSE 5% 100ML 100 ML IV SCH ×3 (01:42→18:26)
[2016-07-15] MEDS: IPRATROPIUM BROMIDE NEB SOLN 0.02% 2.5 ML VIAL INH SCH ×2 (03:19→07:22)
[2016-07-15] MEDS: ACETYLCYSTEINE 20% INHAL SOLN ***DISPENSED BY RESP. INH SCH ×3 (03:19→14:09)
[2016-07-15] MEDS: LEVALBUTEROL 1.25MG/0.5ML NEB INH SCH ×2 (03:19→07:22)
[2016-07-15] MEDS: VANCOMYCIN INJ 1,000 MG in SODIUM CHLORIDE 0.9% 250ML 250 ML IV SCH ×2 (04:05→12:13)
[2016-07-15] MEDS: OXYCODONE/ACETAMINOPHEN 5-325 TAB PO SCH ×4 (04:08→12:13)
[2016-07-15 05:48] LABS: BASO % 0.3 %; BASO ABS # 0.05 K/uL (0-0.2); COMPLETE YES; EOS % 0.7 %; HEMATOCRIT 27.1 % (42-52); IG% 1.1 %; LYMPH % 11.5 %; MEAN CELL VOLUME 97.1 fL (80-100); MEAN CORPUSCULAR HEMOGLOBIN 33.7 pg (25-34); MEAN CORPUSCULAR HGB CONC 34.7 g/dl (32-36); MONO % 10.1 %; NEUT % 76.3 %; PLATELET COUNT 527 K/uL (130-400); RED BLOOD COUNT 2.79 M/uL (4.7-6.1)
[2016-07-15 06:14] LABS: BUN/CREATININE RATIO 8.2 (10-20); CREATININE 0.57 mg/dl (0.60-1.40); PHOSPHORUS 2.9 mg/dl (2.5-4.9); POTASSIUM 3.4 mmol/L (3.5-5.1)
--- NOTE | 2016-07-15 06:20 | Progress Note ---
Medicine Progress Note Date & Time of Visit: Jul 14, 2016 at 17:33. Subjective -transferred to tele floor from ICU today -still confused -still has enteric feeding tube -tolerating some PO but with assistance from staff -remains on 1 to 1 monitoring with sitter Objective Last 8 Hrs Date Time Temp Pulse Resp B/P Pulse Ox O2 Delivery O2 Flow Rate FiO2 07/14/16 16:00 Nasal Cannula 2.0 07/14/16 14:38 36.8 91 20 150/82 93 07/14/16 13:16 36.9 118 20 161/92 07/14/16 12:00 36.6 100 16 137/84 94 Nasal Cannula 2.0 07/14/16 12:00 97 Nasal Cannula 2.0 07/14/16 11:13 92 16 93 Nasal Cannula 2.0 07/14/16 10:01 83 16 97 Nasal Cannula 2.5 07/14/16 10:00 36.6 90 16 126/72 94 Nasal Cannula 2.0 Physical Exam: GEN: WNWD, appears comfortable, alert and oriented to self and place but still having hallucinations HEENT: NC/AT, normal sclerae CARDIO: reg rate, S1/2 heard without m/g/r LUNGS: CTA bilaterally, no crackles, rales or wheezes, good diaphragmatic excursion, breath sounds heard bilaterally, chest tube in place on L side draining red-tinged serosanguinous fluid, bandages in place are c/d/i ABD: soft, no guarding, non-distended, +hypoactive BS EXTREMITY: RP and DP palpable 2+ bilat, no LE swelling or edema, extremities are warm and well-perfused, feet are free of wounds or rashes, toenails are long and nails are poorly cared for N/M: could not be assessed 2/2 encephalopathy SKIN: warm and dry Laboratory Results: Last 24 Hours Test 07/14/16 05:23 07/14/16 16:14 White Blood Count 17.77 K/uL Red Blood Count 2.78 M/uL Hemoglobin 9.2 g/dL Hematocrit 26.7 % Mean Corpuscular Volume 96.0 fL Mean Corpuscular Hemoglobin 33.1 pg Mean Corpuscular Hemoglobin Concent 34.5 g/dl Platelet Count 440 K/uL Mean Platelet Volume 9.1 fL Neutrophils (%) (Auto) 80.2 % Lymphocytes (%) (Auto) 7.0 % Monocytes (%) (Auto) 11.1 % Eosinophils (%) (Auto) 0.7 % Basophils (%) (Auto) 0.2 % Neutrophils # (Auto) 14.24 K/uL Lymphocytes # (Auto) 1.25 K/uL Monocytes # (Auto) 1.97 K/uL Eosinophils # (Auto) 0.13 K/uL Basophils # (Auto) 0.03 K/uL RDW Standard Deviation 44.5 fL RDW Coefficient of Variation 12.7 % Immature Granulocyte % (Auto) 0.8 % Immature Granulocyte # (Auto) 0.15 K/uL Sodium Level 140 mmol/L Potassium Level 3.2 mmol/L Chloride Level 104 mmol/L Carbon Dioxide Level 25 mmol/L Anion Gap 11.0 mmol/L Blood Urea Nitrogen 6 mg/dl Creatinine 0.50 mg/dl Est Creatinine Clear Calc Drug Dose 150.8 ml/min Estimated GFR () 145.4 Estimated GFR (Non- 125.5 BUN/Creatinine Ratio 11.2 Random Glucose 82 mg/dl Calcium Level 7.7 mg/dl Phosphorus Level 3.3 mg/dl Magnesium Level 1.7 mg/dl Bedside Glucose 102 mg/dl Assessment & Plan This is a 50-year-old male, who [facility] with a history of alcoholism, smoking and hypertension presenting with left-sided rib/chest pains after a fall. Subsequent hemothorax with chest tube placement. Was septic from possible pneumonia and lower extremity infection? seen by ID and on iv abx. Went in to severe alcohol withdrawal and was s/p intubation and was on Precedex drip and Diprivan drip. Was extubated shortly after and transferred to [facility]. Tachypneic one night later and was transferred back to ICU. Pain meds were restarted and encephalopathy is improving. Chest tube still in place and putting out 300 ml in past 24 hours. 1. Left sided rib fractures s/p fall and subsequent hemothorax with chest tube placement-continues to drain approx 400 in last 24 hrs. Good breath sounds on exam. 2. Encephalopathy 2/2 pain vs withdrawal -ICU team noted some facial twitching and ordered EEG was negative. Cont pain control and benzos PRN-encephalopathy is improving. Oriented to person and place but still having confusion. ICU team to pull chest tube soon but still putting out 400mL in last 24 hours-- chest tube likely contributing to pain. Cont scheduled Percocet as patient is improving. 3. Sepsis-considering sources to include R foot (CT shows non-specific edema of superficial and deep tissues) vs aspiration pneumonia-may be developing an infiltrate in right base. Continue on Vanc/Zosyn per ID team. Cultures are negative to date except for 1 bottle positive for Corynebacterium thought to be a contaminant. Afebrile and not ill-appearing Cont Neb treatments 4. Poss aspiration contributing to recent tachypnea and pneumonia. Speech and swallow eval-recs made to staff. Enteric feeding tube in place. Staff encouraging PO intake. Consider removing nasal tube tomorrow. 5. History of tobacco abuse. 6. Diarrhea, resolved. 7. Hypophosphatemia, improved. 8. Hypokalemia. 9. Protein calorie malnutrition. 10. Deconditioning with prolonged ICU stay-cont PT/OT DVT prophy-heparin GI prophy-Protonix Dispo-uncertain at this time. Will likely move off tele if continues to improve tomorrow. Appreciate CM efforts to contact family members Sully Gregory DO [facility] Hospitalist Current Inpatient Medications: Current Inpatient Medications Medications (Trade) Dose Ordered Sig/Jaylene Route Start Time Stop Time Status Last Admin Dose Admin Nicotine (Nicoderm Cq 14MG Patch) 1 patch QAM TD 07/06/16 09:00 08/05/16 08:59 07/14/16 09:13 1 PATCH Miscellaneous (Remove Nicoderm Patch) 1 ea HS N/A 07/06/16 21:00 08/05/16 20:59 07/13/16 21:08 1 EA Oxycodone/ Acetaminophen (Percocet 5-325MG Tab) 1 tab Q4H PRN PO 07/05/16 23:15 07/19/16 23:14 07/06/16 14:07 1 TAB Miscellaneous (Iv Fluids Completed) 1 ea PRN PRN N/A 07/05/16 23:30 07/05/17 23:29 Acetaminophen 650 mg 650 mg Q4H PRN PO 07/06/16 01:30 08/05/16 01:29 07/06/16 19:33 650 MG Piperacillin Sod/ Tazobactam Sod/ Dextrose (Zosyn Iv/D5 100ml) 115 ml @ 28.75 mls/ hr Q8@0200,1000,1800 IV 07/06/16 18:00 07/20/16 17:59 07/14/16 09:53 28.75 MLS/HR Piperacillin Sod/ Tazobactam Sod (Consult) 1 ea UD PRN N/A 07/06/16 11:30 07/20/16 11:29 Miconazole Nitrate (Desenex Powder) 1 appln PRN PRN EXT 07/06/16 12:30 08/05/16 12:29 07/06/16 17:56 1 APPLN Vancomycin HCl 1 ea 1 ea UD PRN N/A 07/07/16 02:45 07/17/16 02:44 Vancomycin HCl/ Sodium Chloride (Vancomycin Inj/ Nss 250ml) 270 ml @ 125 mls/hr Q8H IV 07/07/16 12:00 07/17/16 11:59 07/14/16 11:39 125 MLS/HR Folic Acid 1 mg 1 mg QAM PO 07/08/16 09:00 08/07/16 08:59 Future Hold 07/11/16 08:20 1 MG Acetaminophen (Ofirmev Iv) 100 ml @ 400 mls/hr Q6H PRN IV 07/07/16 18:30 08/06/16 18:29 07/08/16 20:57 400 MLS/HR Ascorbic Acid (Vitamin C Tab) 1,000 mg QAM PO 07/10/16 09:00 08/09/16 08:59 07/14/16 09:13 1,000 MG Heparin Sodium (Porcine) (Heparin Sq 5000 Unit/0.5ml) 5,000 unit Q12 SQ 07/09/16 21:00 08/08/16 20:59 07/14/16 09:52 5,000 UNIT Clonidine HCl 0.1 mg 0.1 mg Q4 PRN PO 07/11/16 10:45 08/10/16 10:44 Thiamine HCl 100 mg/Syringe 10 ml @ 2 mls/min QAM IV 07/12/16 09:00 08/11/16 08:59 07/14/16 09:12 2 MLS/MIN Folic Acid/Syringe (Folvite Inj/ Syringe) 10 ml @ 5 mls/min QAM IV 07/12/16 09:00 08/11/16 08:59 07/14/16 09:12 5 MLS/MIN Lorazepam (Ativan Inj) 1 mg Q2HWA PRN IV 07/11/16 20:00 08/10/16 19:59 07/13/16 12:30 1 MG Ipratropium [place] (Atrovent 0.02% 0.5MG/2.5ML Neb) 0.5 mg Q4R INH 07/12/16 00:00 08/11/16 00:00 07/14/16 11:13 0.5 MG Levalbuterol (Xopenex 1.25MG/ 0.5ML Neb) 1.25 mg Q4R INH 07/12/16 00:00 08/11/16 00:00 07/14/16 11:13 1.25 MG Morphine Sulfate (MoRPHine SULFATE INJ) 2 mg Q2H PRN IV 07/12/16 08:15 07/26/16 08:14 07/13/16 12:30 2 MG Oxycodone/ Acetaminophen (Percocet 5-325MG Tab) 1 tab Q4 PO 07/13/16 12:00 07/27/16 11:59 07/14/16 16:29 1 TAB Docusate Sodium (coLACE SYRUP) 100 mg BID PO 07/13/16 21:00 08/12/16 20:59 07/14/16 09:12 100 MG Enteral Nutritional Formula (Boost Plus Vanilla) 1 can TIDM PO 07/14/16 07:15 08/13/16 07:14 07/14/16 16:29 1 CAN Acetylcysteine (Mucomyst 20% Inh Soln) 3 ml Q6R INH 07/14/16 15:00 07/15/16 14:59 Pantoprazole Sodium (Protonix Tab) 40 mg QAM PO 07/15/16 09:00 08/14/16 08:59
[2016-07-15] MEDS: BOOST PLUS VANILLA PO SCH ×6 (08:00→17:00)
[2016-07-15] MEDS: ASCORBIC ACID 500 MG TAB PO SCH (08:04)
[2016-07-15] MEDS: PANTOprazole SOD 40 MG TAB PO SCH (08:04)
[2016-07-15] MEDS: NICOTINE 14 MG/24 HR TDSY TD SCH (08:04)
[2016-07-15] MEDS: FoLIC ACID INJ 1 MG in SYRINGE 9.8 ML IV SCH (08:05)
[2016-07-15] MEDS: THIAMINE HCL INJ 100 MG in SYRINGE 9 ML IV SCH (08:05)
[2016-07-15] MEDS: HEPARIN SOD 5000 UNIT/0.5 ML CARP SQ SCH ×2 (08:08→21:25)
[2016-07-15] MEDS: DOCUSATE SODIUM 100 MG/10 ML UDC PO SCH (08:09)
[2016-07-15] MEDS ORDERED: POTASSIUM CHLORIDE 20 MEQ/15 ML UDC PO SCH (09:00)
[2016-07-15] MEDS ORDERED: LEVALBUTEROL 1.25MG/0.5ML NEB INH PRN (09:10)
[2016-07-15] MEDS ORDERED: IPRATROPIUM BROMIDE NEB SOLN 0.02% 2.5 ML VIAL INH PRN (09:10)
[2016-07-15] MEDS ORDERED: NURSING VERBAL MED ORDER ONE (09:45)
[2016-07-15] MEDS ORDERED: LORAZEPAM INJ 1 MG in SYRINGE 0.5 ML IV PRN (10:45)
[2016-07-15] MEDS: POTASSIUM CHLORIDE 20 MEQ TABCR PO SCH ×2 (10:48→18:26)
--- NOTE | 2016-07-15 14:55 | Infectious Disease Progress Nt ---
Progress Note Date of Service Jul 15, 2016. Subjective Pt evaluation today including: conversation w/ patient, physical exam, chart review, lab review, review of studies, review of inpatient medication list White blood cell count today 16.50. His creatinine was 0.57. The patient states that he is feeling much improved this morning. It was noted that the wound care nurse did reassess his foot and did take a large portion of darkened skin off of the bottom of his foot revealing pink skin underneath. He is currently on IV vancomycin and Zosyn. He states that his breathing is much improved today. He just feels slightly weak. All Other Systems: Reviewed and Negative Medications Current Inpatient Medications Medications (Trade) Dose Ordered Sig/Jaylene Route Start Time Stop Time Status Last Admin Dose Admin Nicotine (Nicoderm Cq 14MG Patch) 1 patch QAM TD 07/06/16 09:00 08/05/16 08:59 07/15/16 08:04 1 PATCH Miscellaneous (Remove Nicoderm Patch) 1 ea HS N/A 07/06/16 21:00 08/05/16 20:59 07/14/16 20:29 1 EA Miscellaneous (Iv Fluids Completed) 1 ea PRN PRN N/A 07/05/16 23:30 07/05/17 23:29 Acetaminophen 650 mg 650 mg Q4H PRN PO 07/06/16 01:30 08/05/16 01:29 07/06/16 19:33 650 MG Piperacillin Sod/ Tazobactam Sod/ Dextrose (Zosyn Iv/D5 100ml) 115 ml @ 28.75 mls/ hr Q8@0200,1000,1800 IV 07/06/16 18:00 07/20/16 17:59 07/15/16 10:49 28.75 MLS/HR Piperacillin Sod/ Tazobactam Sod (Consult) 1 ea UD PRN N/A 07/06/16 11:30 07/20/16 11:29 Miconazole Nitrate (Desenex Powder) 1 appln PRN PRN EXT 07/06/16 12:30 08/05/16 12:29 07/06/16 17:56 1 APPLN Folic Acid (Folvite Tab) 1 mg QAM PO 07/08/16 09:00 08/07/16 08:59 Future hold 07/11/16 08:20 1 MG Ascorbic Acid (Vitamin C Tab) 1,000 mg QAM PO 07/10/16 09:00 08/09/16 08:59 07/15/16 08:04 1,000 MG Heparin Sodium (Porcine) (Heparin Sq 5000 Unit/0.5ml) 5,000 unit Q12 SQ 07/09/16 21:00 08/08/16 20:59 07/15/16 08:08 5,000 UNIT Clonidine HCl (Catapres Tab) 0.1 mg Q4 PRN PO 07/11/16 10:45 08/10/16 10:44 Lorazepam (Ativan Inj) 1 mg Q2HWA PRN IV 07/11/16 20:00 08/10/16 19:59 07/13/16 12:30 1 MG Morphine Sulfate (MoRPHine SULFATE INJ) 2 mg Q2H PRN IV 07/12/16 08:15 07/26/16 08:14 07/13/16 12:30 2 MG Enteral Nutritional Formula (Boost Plus Vanilla) 1 can TIDM PO 07/14/16 07:15 08/13/16 07:14 07/15/16 12:19 1 CAN Pantoprazole Sodium (Protonix Tab) 40 mg QAM PO 07/15/16 09:00 08/14/16 08:59 07/15/16 08:04 40 MG Ipratropium [place] (Atrovent 0.02% 0.5MG/2.5ML Neb) 0.5 mg Q6H PRN INH 07/15/16 09:10 08/14/16 09:09 Levalbuterol (Xopenex 1.25MG/ 0.5ML Neb) 1.25 mg Q6H PRN INH 07/15/16 09:10 08/14/16 09:09 Potassium Chloride (Klor-Con Tab) 40 meq TODAY@1000,1600 PO 07/15/16 10:00 07/15/16 16:01 07/15/16 10:48 40 MEQ Docusate Sodium (coLACE SYRUP) 100 mg BID PRN PO 07/15/16 21:00 08/14/16 20:59 Oxycodone/ Acetaminophen (Percocet 5-325MG Tab) 1 tab Q4 PRN PO 07/15/16 16:00 07/29/16 15:59 Thiamine HCl (Vitamin B-1 Tab) 100 mg QAM PO 07/16/16 09:00 08/15/16 08:59 Objective Vital Signs Date Time Temp Pulse Resp B/P Pulse Ox O2 Delivery O2 Flow Rate FiO2 07/15/16 14:32 36.6 84 22 172/87 96 Nasal Cannula 2.0 07/15/16 12:02 Nasal Cannula 2.0 07/15/16 11:14 37.0 99 22 180/91 99 Nasal Cannula 2.0 07/15/16 08:00 94 Nasal Cannula 2.0 07/15/16 07:20 86 16 94 Nasal Cannula 2.0 07/15/16 06:42 37.1 86 18 173/88 94 Nasal Cannula 07/15/16 04:15 Nasal Cannula 2.0 07/15/16 03:19 73 16 91 Nasal Cannula 2.0 07/15/16 00:00 Nasal Cannula 2.0 07/14/16 23:26 72 16 97 Nasal Cannula 2.0 07/14/16 20:37 97 16 92 Nasal Cannula 2.0 07/14/16 20:00 Nasal Cannula 2.0 07/14/16 16:00 80 18 95 Nasal Cannula 2.0 07/14/16 16:00 Nasal Cannula 2.0 Physical Exam General Appearance: WD/WN, no apparent distress Eyes: normal inspection, sclerae normal ENT: hearing grossly normal Neck: supple, trachea midline Respiratory/Chest: chest non-tender, normal breath sounds, no respiratory distress, no accessory muscle use, + crackles (Very mild bilateral bases) Cardiovascular: regular rate, rhythm Abdomen: normal bowel sounds, non tender Neurologic/Psychiatric: alert Skin: warm/dry, no rash, + pertinent finding (Some flaking skin noted on bottom of right foot- much improved. No further black skin) Laboratory Results Last 24 Hours Test 07/14/16 16:14 07/15/16 05:09 Bedside Glucose 102 mg/dl White Blood Count 16.50 K/uL Red Blood Count 2.79 M/uL Hemoglobin 9.4 g/dL Hematocrit 27.1 % Mean Corpuscular Volume 97.1 fL Mean Corpuscular Hemoglobin 33.7 pg Mean Corpuscular Hemoglobin Concent 34.7 g/dl Platelet Count 527 K/uL Mean Platelet Volume 9.0 fL Neutrophils (%) (Auto) 76.3 % Lymphocytes (%) (Auto) 11.5 % Monocytes (%) (Auto) 10.1 % Eosinophils (%) (Auto) 0.7 % Basophils (%) (Auto) 0.3 % Neutrophils # (Auto) 12.60 K/uL Lymphocytes # (Auto) 1.90 K/uL Monocytes # (Auto) 1.66 K/uL Eosinophils # (Auto) 0.11 K/uL Basophils # (Auto) 0.05 K/uL RDW Standard Deviation 45.6 fL RDW Coefficient of Variation 12.9 % Immature Granulocyte % (Auto) 1.1 % Immature Granulocyte # (Auto) 0.18 K/uL Sodium Level 139 mmol/L Potassium Level 3.4 mmol/L Chloride Level 104 mmol/L Carbon Dioxide Level 27 mmol/L Anion Gap 8.0 mmol/L Blood Urea Nitrogen 5 mg/dl Creatinine 0.57 mg/dl Est Creatinine Clear Calc Drug Dose 132.3 ml/min Estimated GFR () 137.8 Estimated GFR (Non- 118.9 BUN/Creatinine Ratio 8.2 Random Glucose 90 mg/dl Calcium Level 8.0 mg/dl Phosphorus Level 2.9 mg/dl Magnesium Level 2.0 mg/dl Assessment and Plan Patient with black area on the right foot along with recovering from DT's, left rib fractures, left clavicle fracture, possible new aspiration pneumonia. He is currently on IV Zosyn and Vancomycin. Patient's foot appears much improved today. Therefore, will discontinue IV vancomycin. Will continue IV Zosyn due to concerns of aspiration pneumonia, but likely can discontinue in the next 1-2 days. Plan: 1. Continue IV Zosyn 2. D/C Vancomycin case reviewed and agree with above assessment.
[2016-07-15] MEDS: CLONIDINE HCL 0.1 MG TAB PO PRN ×2 (15:10→21:21)
[2016-07-15] MEDS ORDERED: DOCUSATE SODIUM 100 MG/10 ML UDC PO PRN (21:00)
--- NOTE | 2016-07-15 22:44 | Progress Note ---
Medicine Progress Note Date & Time of Visit: Jul 15, 2016 at 19:55. Subjective Doing well today Alert and oriented x 3 today Removed enteric feeding tube on his own this morning and tolerating PO when he wants to eat Removing sitter Chest tube still in place and will discuss with ICU team regarding removal tomorrow as <200cc out today Patient denies any pain Tells me he lives at a assisted called "[facility] the [facility]." Talks about his two brothers, one lives in a teee in [place] and the other is 8 years older and they don't get along. Objective Last 8 Hrs Date Time Temp Pulse Resp B/P Pulse Ox O2 Delivery O2 Flow Rate FiO2 07/15/16 18:40 37.1 90 20 176/94 96 Room Air 2.0 07/15/16 16:12 37.3 80 20 165/86 98 Nasal Cannula 2.0 07/15/16 15:45 Room Air 07/15/16 14:32 36.6 84 22 172/87 96 Nasal Cannula 2.0 07/15/16 12:02 Nasal Cannula 2.0 Physical Exam: GEN: WNWD, appears comfortable, A&O x 3 HEENT: NC/AT, normal sclerae CARDIO: reg rate, S1/2 heard without m/g/r LUNGS: CTA bilaterally, no crackles, rales or wheezes, good diaphragmatic excursion, breath sounds heard bilaterally, chest tube in place on L side draining red-tinged serosanguinous fluid, bandages in place are c/d/i ABD: soft, no guarding, non-distended, +hypoactive BS EXTREMITY: RP and DP palpable 2+ bilat, no LE swelling or edema, extremities are warm and well-perfused N/M: no gross focal deficits. SKIN: warm and dry Laboratory Results: Last 24 Hours Test 07/15/16 05:09 White Blood Count 16.50 K/uL Red Blood Count 2.79 M/uL Hemoglobin 9.4 g/dL Hematocrit 27.1 % Mean Corpuscular Volume 97.1 fL Mean Corpuscular Hemoglobin 33.7 pg Mean Corpuscular Hemoglobin Concent 34.7 g/dl Platelet Count 527 K/uL Mean Platelet Volume 9.0 fL Neutrophils (%) (Auto) 76.3 % Lymphocytes (%) (Auto) 11.5 % Monocytes (%) (Auto) 10.1 % Eosinophils (%) (Auto) 0.7 % Basophils (%) (Auto) 0.3 % Neutrophils # (Auto) 12.60 K/uL Lymphocytes # (Auto) 1.90 K/uL Monocytes # (Auto) 1.66 K/uL Eosinophils # (Auto) 0.11 K/uL Basophils # (Auto) 0.05 K/uL RDW Standard Deviation 45.6 fL RDW Coefficient of Variation 12.9 % Immature Granulocyte % (Auto) 1.1 % Immature Granulocyte # (Auto) 0.18 K/uL Sodium Level 139 mmol/L Potassium Level 3.4 mmol/L Chloride Level 104 mmol/L Carbon Dioxide Level 27 mmol/L Anion Gap 8.0 mmol/L Blood Urea Nitrogen 5 mg/dl Creatinine 0.57 mg/dl Est Creatinine Clear Calc Drug Dose 132.3 ml/min Estimated GFR () 137.8 Estimated GFR (Non- 118.9 BUN/Creatinine Ratio 8.2 Random Glucose 90 mg/dl Calcium Level 8.0 mg/dl Phosphorus Level 2.9 mg/dl Magnesium Level 2.0 mg/dl Assessment & Plan This is a 50-year-old male, who lives in a homeless assisted with a history of alcoholism, smoking and hypertension presenting with left-sided rib/chest pains after a fall. Subsequent hemothorax with chest tube placement. Was septic from possible pneumonia and lower extremity infection? seen by ID and on iv abx. Went in to severe alcohol withdrawal and was s/p intubation and was on Precedex drip and Diprivan drip. Was extubated shortly after and transferred to [facility]. Tachypneic one night later and was transferred back to ICU. Pain meds were restarted and encephalopathy is improving. Chest tube still in place and putting out 300 ml in past 24 hours. 1. Left sided rib fractures s/p fall and subsequent hemothorax with chest tube placement-continues to drain approx <200 in last 24 hrs. Good breath sounds on exam. Poss pulled in am. Cont Percocet 2. Encephalopathy 2/2 pain vs withdrawal -resolved,sitter discontinued. ICU team noted some facial twitching and ordered EEG was negative. Cont pain control and benzos PRN. \\ 3. Poss aspiration pneumonia-may be developing an infiltrate in right base. Continue on Zosyn per ID team. Cultures are negative to date except for 1 bottle positive for Corynebacterium thought to be a contaminant. Afebrile and not ill-appearing Cont Neb treatments PRN 4. Poss aspiration contributing to recent tachypnea and pneumonia. Speech and swallow eval-recs made to staff. Enteric feeding tube self-discontinued today- pt is tolerating PO. Staff encouraging PO intake. 5. History of tobacco and ETOH abuse. 6. Diarrhea, resolved. 7. Deconditioning with prolonged ICU stay-cont PT/OT DVT prophy-heparin GI prophy-Protonix Dispo- Will likely move off tele if continues to improve tomorrow. Appreciate CM efforts to contact family members Sully Gregory DO [facility] Hospitalist Current Inpatient Medications: Current Inpatient Medications Medications (Trade) Dose Ordered Sig/Jaylene Route Start Time Stop Time Status Last Admin Dose Admin Nicotine (Nicoderm Cq 14MG Patch) 1 patch QAM TD 07/06/16 09:00 08/05/16 08:59 07/15/16 08:04 1 PATCH Miscellaneous (Remove Nicoderm Patch) 1 ea HS N/A 07/06/16 21:00 08/05/16 20:59 07/14/16 20:29 1 EA Miscellaneous (Iv Fluids Completed) 1 ea PRN PRN N/A 07/05/16 23:30 07/05/17 23:29 Acetaminophen 650 mg 650 mg Q4H PRN PO 07/06/16 01:30 08/05/16 01:29 07/06/16 19:33 650 MG Piperacillin Sod/ Tazobactam Sod/ Dextrose (Zosyn Iv/D5 100ml) 115 ml @ 28.75 mls/ hr Q8@0200,1000,1800 IV 07/06/16 18:00 07/20/16 17:59 07/15/16 18:26 28.75 MLS/HR Piperacillin Sod/ Tazobactam Sod (Consult) 1 ea UD PRN N/A 07/06/16 11:30 07/20/16 11:29 Miconazole Nitrate (Desenex Powder) 1 appln PRN PRN EXT 07/06/16 12:30 08/05/16 12:29 07/06/16 17:56 1 APPLN Folic Acid (Folvite Tab) 1 mg QAM PO 07/08/16 09:00 08/07/16 08:59 Future hold 07/11/16 08:20 1 MG Ascorbic Acid (Vitamin C Tab) 1,000 mg QAM PO 07/10/16 09:00 08/09/16 08:59 07/15/16 08:04 1,000 MG Heparin Sodium (Porcine) (Heparin Sq 5000 Unit/0.5ml) 5,000 unit Q12 SQ 07/09/16 21:00 08/08/16 20:59 07/15/16 08:08 5,000 UNIT Lorazepam (Ativan Inj) 1 mg Q2HWA PRN IV 07/11/16 20:00 08/10/16 19:59 07/13/16 12:30 1 MG Morphine Sulfate (MoRPHine SULFATE INJ) 2 mg Q2H PRN IV 07/12/16 08:15 07/26/16 08:14 07/13/16 12:30 2 MG Enteral Nutritional Formula (Boost Plus Vanilla) 1 can TIDM PO 07/14/16 07:15 08/13/16 07:14 07/15/16 12:19 1 CAN Pantoprazole Sodium (Protonix Tab) 40 mg QAM PO 07/15/16 09:00 08/14/16 08:59 07/15/16 08:04 40 MG Ipratropium [place] (Atrovent 0.02% 0.5MG/2.5ML Neb) 0.5 mg Q6H PRN INH 07/15/16 09:10 08/14/16 09:09 Levalbuterol (Xopenex 1.25MG/ 0.5ML Neb) 1.25 mg Q6H PRN INH 07/15/16 09:10 08/14/16 09:09 Docusate Sodium (coLACE SYRUP) 100 mg BID PRN PO 07/15/16 21:00 08/14/16 20:59 Oxycodone/ Acetaminophen (Percocet 5-325MG Tab) 1 tab Q4 PRN PO 07/15/16 16:00 07/29/16 15:59 Thiamine HCl (Vitamin B-1 Tab) 100 mg QAM PO 07/16/16 09:00 08/15/16 08:59 Clonidine HCl (Catapres Tab) 0.1 mg Q4 PRN PO 07/15/16 15:00 08/14/16 14:59 07/15/16 15:10 0.1 MG
[2016-07-16] VITALS (11 sets, daily range): BP systolic 127–188; BP diastolic 71–95; PULSE 76–92; TEMP 36.7–37.1; O2SAT 90–94
[2016-07-16] MEDS: OXYCODONE/ACETAMINOPHEN 5-325 TAB PO PRN ×2 (00:25→13:56)
[2016-07-16] MEDS: MoRPHine SULFATE 2 MG/ML CARP IV PRN (01:35)
[2016-07-16] MEDS: PIPERACILL/TAZOBAC IV 3.375 GM in DEXTROSE 5% 100ML 100 ML IV SCH ×3 (01:35→19:32)
[2016-07-16] MEDS: CLONIDINE HCL 0.1 MG TAB PO PRN (04:27)
[2016-07-16] MEDS ORDERED: HydrALAZINE HCL 20 MG/ML VIAL IV. STA (08:12)
[2016-07-16] MEDS: BOOST PLUS VANILLA PO SCH ×6 (08:25→17:00)
[2016-07-16 08:26] LABS: HEMATOCRIT 28.6 % (42-52); MEAN CELL VOLUME 96.6 fL (80-100); MEAN CORPUSCULAR HEMOGLOBIN 33.8 pg (25-34); MEAN PLATELET VOLUME 8.9 fL (7.4-10.4); PLATELET COUNT 610 K/uL (130-400); RED BLOOD COUNT 2.96 M/uL (4.7-6.1); WHITE BLOOD COUNT 13.67 K/uL (4.8-10.8)
[2016-07-16] MEDS: AMLODIPINE BESYLATE 5 MG TAB PO SCH (08:28)
[2016-07-16] MEDS: THIAMINE HCL 100 MG TAB PO SCH (08:32)
[2016-07-16] MEDS: ASCORBIC ACID 500 MG TAB PO SCH (08:32)
[2016-07-16] MEDS: PANTOprazole SOD 40 MG TAB PO SCH (08:33)
[2016-07-16] MEDS: NICOTINE 14 MG/24 HR TDSY TD SCH (08:34)
[2016-07-16 09:05] LABS: BUN/CREATININE RATIO 9.3 (10-20); CALCIUM 8.2 mg/dl (8.5-10.1); CREATININE 0.54 mg/dl (0.60-1.40); MAGNESIUM 1.8 mg/dl (1.8-2.4); POTASSIUM 3.5 mmol/L (3.5-5.1)
[2016-07-16] MEDS: HEPARIN SOD 5000 UNIT/0.5 ML CARP SQ SCH ×2 (09:05→20:42)
--- NOTE | 2016-07-16 20:50 | Progress Note ---
Medicine Progress Note Date & Time of Visit: Jul 16, 2016 at 17:25. Subjective Doing well today Confusion resolved Complains of pain on his whole left side of chest Chest tube in place Draining <200 daily ICU staff would like to see <200 reliably prior to pulling tube-discussed this today Pt denies nausea, eating well, no pain in feet, no coughing, afebrile. Objective Last 8 Hrs Date Time Temp Pulse Resp B/P Pulse Ox O2 Delivery O2 Flow Rate FiO2 07/16/16 15:07 37.1 76 24 127/71 92 Room Air 07/16/16 12:00 Nasal Cannula 2.0 07/16/16 11:17 36.7 92 16 162/92 90 Nasal Cannula 2.0 Physical Exam: GEN: WNWD, appears comfortable, A&O x 3 HEENT: NC/AT, normal sclerae CARDIO: reg rate, S1/2 heard without m/g/r LUNGS: CTA bilaterally, no crackles, rales or wheezes, good diaphragmatic excursion, breath sounds heard bilaterally, chest tube in place on L side draining red-tinged serosanguinous fluid, bandages in place are c/d/i ABD: soft, no guarding, non-distended, +hypoactive BS EXTREMITY: no LE swelling or edema, extremities are warm and well-perfused N/M: no gross focal deficits. SKIN: warm and dry Laboratory Results: Last 24 Hours Test 07/16/16 07:48 White Blood Count 13.67 K/uL Red Blood Count 2.96 M/uL Hemoglobin 10.0 g/dL Hematocrit 28.6 % Mean Corpuscular Volume 96.6 fL Mean Corpuscular Hemoglobin 33.8 pg Mean Corpuscular Hemoglobin Concent 35.0 g/dl RDW Standard Deviation 44.8 fL RDW Coefficient of Variation 12.8 % Platelet Count 610 K/uL Mean Platelet Volume 8.9 fL Sodium Level 137 mmol/L Potassium Level 3.5 mmol/L Chloride Level 103 mmol/L Carbon Dioxide Level 22 mmol/L Anion Gap 12.0 mmol/L Blood Urea Nitrogen 5 mg/dl Creatinine 0.54 mg/dl Est Creatinine Clear Calc Drug Dose 137.6 ml/min Estimated GFR () 140.9 Estimated GFR (Non- 121.6 BUN/Creatinine Ratio 9.3 Random Glucose 73 mg/dl Calcium Level 8.2 mg/dl Magnesium Level 1.8 mg/dl Assessment & Plan This is a 50-year-old male, who lives in a homeless retirement with a history of alcoholism, smoking and hypertension presenting with left-sided rib/chest pains after a fall. Subsequent hemothorax with chest tube placement. Was septic from possible pneumonia and lower extremity infection? seen by ID and on iv abx. Went in to severe alcohol withdrawal and was s/p intubation and was on Precedex drip and Diprivan drip. Was extubated shortly after and transferred to tele. Tachypneic one night later and was transferred back to ICU. Pain meds were restarted and encephalopathy is improving. Chest tube still in place and putting out 300 ml in past 24 hours. 1. Left sided rib fractures s/p fall and subsequent hemothorax with chest tube placement-continues to drain approx <200 in last 24 hrs. Good breath sounds on exam. Poss pulled in am. Cont Percocet scheduled 2. Encephalopathy 2/2 pain vs withdrawal -resolved,sitter discontinued. ICU team noted some facial twitching and ordered EEG was negative. Cont pain control and benzos PRN. 3. Poss aspiration pneumonia-less likely an issue after several days of clinical stability. Continue on Zosyn per ID team. Cultures are negative to date except for 1 bottle positive for Corynebacterium thought to be a contaminant. Afebrile and not ill-appearing Cont Neb treatments PRN 4. Poss aspiration contributing to recent tachypnea and pneumonia. Speech and swallow eval-recs made to staff. Enteric feeding tube self-discontinued yesterday-pt is tolerating PO. Staff encouraging PO intake. 5. History of tobacco and ETOH abuse. 6. Diarrhea, resolved. 7. Deconditioning with prolonged ICU stay-cont PT/OT DVT prophy-heparin GI prophy-Protonix Dispo- Cont to monitor on tele with chest tube in place. Appreciate CM efforts to contact family members Sully Gregory DO [facility] Hospitalist Current Inpatient Medications: Current Inpatient Medications Medications (Trade) Dose Ordered Sig/Jaylene Route Start Time Stop Time Status Last Admin Dose Admin Nicotine (Nicoderm Cq 14MG Patch) 1 patch QAM TD 07/06/16 09:00 08/05/16 08:59 07/15/16 08:04 1 PATCH Miscellaneous (Remove Nicoderm Patch) 1 ea HS N/A 07/06/16 21:00 08/05/16 20:59 07/15/16 21:26 1 EA Miscellaneous (Iv Fluids Completed) 1 ea PRN PRN N/A 07/05/16 23:30 07/05/17 23:29 Acetaminophen 650 mg 650 mg Q4H PRN PO 07/06/16 01:30 08/05/16 01:29 07/06/16 19:33 650 MG Piperacillin Sod/ Tazobactam Sod/ Dextrose (Zosyn Iv/D5 100ml) 115 ml @ 28.75 mls/ hr Q8@0200,1000,1800 IV 07/06/16 18:00 07/20/16 17:59 07/16/16 10:08 28.75 MLS/HR Piperacillin Sod/ Tazobactam Sod (Consult) 1 ea UD PRN N/A 07/06/16 11:30 07/20/16 11:29 Miconazole Nitrate (Desenex Powder) 1 appln PRN PRN EXT 07/06/16 12:30 08/05/16 12:29 07/06/16 17:56 1 APPLN Folic Acid (Folvite Tab) 1 mg QAM PO 07/08/16 09:00 08/07/16 08:59 Future hold 07/16/16 09:06 1 MG Ascorbic Acid (Vitamin C Tab) 1,000 mg QAM PO 07/10/16 09:00 08/09/16 08:59 07/16/16 08:32 1,000 MG Heparin Sodium (Porcine) (Heparin Sq 5000 Unit/0.5ml) 5,000 unit Q12 SQ 07/09/16 21:00 08/08/16 20:59 07/16/16 09:05 5,000 UNIT Lorazepam (Ativan Inj) 1 mg Q2HWA PRN IV 07/11/16 20:00 08/10/16 19:59 07/13/16 12:30 1 MG Morphine Sulfate (MoRPHine SULFATE INJ) 2 mg Q2H PRN IV 07/12/16 08:15 07/26/16 08:14 07/16/16 01:35 2 MG Enteral Nutritional Formula (Boost Plus Vanilla) 1 can TIDM PO 07/14/16 07:15 08/13/16 07:14 07/16/16 08:25 1 CAN Pantoprazole Sodium (Protonix Tab) 40 mg QAM PO 07/15/16 09:00 08/14/16 08:59 07/16/16 08:33 40 MG Ipratropium [place] (Atrovent 0.02% 0.5MG/2.5ML Neb) 0.5 mg Q6H PRN INH 07/15/16 09:10 08/14/16 09:09 Levalbuterol (Xopenex 1.25MG/ 0.5ML Neb) 1.25 mg Q6H PRN INH 07/15/16 09:10 08/14/16 09:09 Docusate Sodium (coLACE SYRUP) 100 mg BID PRN PO 07/15/16 21:00 08/14/16 20:59 Oxycodone/ Acetaminophen (Percocet 5-325MG Tab) 1 tab Q4 PRN PO 07/15/16 16:00 07/29/16 15:59 07/16/16 13:56 1 TAB Thiamine HCl (Vitamin B-1 Tab) 100 mg QAM PO 07/16/16 09:00 08/15/16 08:59 07/16/16 08:32 100 MG Clonidine HCl (Catapres Tab) 0.1 mg Q4 PRN PO 07/15/16 15:00 08/14/16 14:59 07/16/16 04:27 0.1 MG Amlodipine Besylate (Norvasc Tab) 10 mg QAM PO 07/16/16 08:30 08/15/16 08:29 07/16/16 08:28 10 MG
[2016-07-17] VITALS (9 sets, daily range): BP systolic 137–166; BP diastolic 76–86; PULSE 73–96; TEMP 36.9–37.7; O2SAT 92–97
[2016-07-17] MEDS: PIPERACILL/TAZOBAC IV 3.375 GM in DEXTROSE 5% 100ML 100 ML IV SCH ×3 (01:45→17:28)
[2016-07-17] MEDS: BOOST PLUS VANILLA PO SCH ×6 (08:10→16:41)
[2016-07-17] MEDS: AMLODIPINE BESYLATE 5 MG TAB PO SCH (08:11)
[2016-07-17] MEDS: PANTOprazole SOD 40 MG TAB PO SCH (08:11)
[2016-07-17] MEDS: THIAMINE HCL 100 MG TAB PO SCH (08:12)
[2016-07-17] MEDS: ASCORBIC ACID 500 MG TAB PO SCH (08:12)
[2016-07-17] MEDS: NICOTINE 14 MG/24 HR TDSY TD SCH (08:14)
[2016-07-17] MEDS: HEPARIN SOD 5000 UNIT/0.5 ML CARP SQ SCH ×2 (08:22→20:43)
[2016-07-17] MEDS: MoRPHine SULFATE 2 MG/ML CARP IV PRN (16:40)
--- NOTE | 2016-07-17 22:28 | Progress Note ---
Medicine Progress Note Date & Time of Visit: Jul 17, 2016 at 17:20. Subjective Feeling well today except complaining of pain in his R side of chest Denies nausea Tolerating PO Reports ambulated today Pulled out his IV because he thought someone told him to do it Objective Last 8 Hrs Date Time Temp Pulse Resp B/P Pulse Ox O2 Delivery O2 Flow Rate FiO2 07/17/16 15:16 37.6 83 18 156/85 93 Nasal Cannula 2.0 07/17/16 12:00 95 Nasal Cannula 2.0 07/17/16 11:37 37.7 86 18 152/85 95 Nasal Cannula 2.0 Physical Exam: GEN: WNWD, appears comfortable, A&O x 3 HEENT: NC/AT, normal sclerae CARDIO: reg rate, S1/2 heard without m/g/r LUNGS: CTA bilaterally, no crackles, rales or wheezes, good diaphragmatic excursion, breath sounds heard bilaterally, chest tube in place on L side draining red-tinged serosanguinous fluid, bandages in place are c/d/i ABD: soft, no guarding, non-distended, +hypoactive BS EXTREMITY: no LE swelling or edema, extremities are warm and well-perfused N/M: no gross focal deficits. SKIN: warm and dry Assessment & Plan This is a 50-year-old male, who lives in a homeless alf with a history of alcoholism, smoking and hypertension presenting with left-sided rib/chest pains after a fall. Subsequent hemothorax with chest tube placement. Was septic from possible pneumonia and lower extremity infection? seen by ID and on iv abx. Went in to severe alcohol withdrawal and was s/p intubation and was on Precedex drip and Diprivan drip. Was extubated shortly after and transferred to [facility]. Tachypneic one night later and was transferred back to ICU. Pain meds were restarted and encephalopathy is improving. Chest tube still in place and putting out 300 ml in past 24 hours. 1. Left sided rib fractures s/p fall and subsequent hemothorax with chest tube placement-continues to drain approx 400 out in last 24 hrs. Good breath sounds on exam. Poss pulled in am. Cont Percocet scheduled; pt has reported pain, however, I cannot get from him if his pain is controlled well with the Percocet. 2. Hypertension-partly 2/2 pain, however, I think he has some underlying HTN. Started Norvasc 10 yesterday with some improvement, added Hydralazine TID. As he is homeless I felt these were better options as they don't require being followed with labs. 3. Encephalopathy 2/2 pain vs withdrawal -resolved,sitter discontinued. He did pull out his IV line tonight which was replaced--he thought someone told him to do it. ICU team noted some facial twitching and ordered EEG was negative. Cont pain control and benzos PRN. 4. Poss aspiration pneumonia-less likely an issue after several days of clinical stability. Continue on Zosyn per ID team. Cultures are negative to date except for 1 bottle positive for Corynebacterium thought to be a contaminant. Afebrile and not ill-appearing , stop neb treatments 5. Poss aspiration contributing to recent tachypnea and pneumonia. Speech and swallow eval-recs made to staff. Enteric feeding tube self-discontinued yesterday-pt is tolerating PO. Staff encouraging PO intake. 6. History of tobacco and ETOH abuse. 7. Diarrhea, resolved. 8. Deconditioning with prolonged ICU stay-cont PT/OT DVT prophy-heparin GI prophy-Protonix Dispo- Cont to monitor on tele with chest tube in place. Appreciate CM efforts to contact family members Sully Gregory DO [facility] Hospitalist Current Inpatient Medications: Current Inpatient Medications Medications (Trade) Dose Ordered Sig/Jaylene Route Start Time Stop Time Status Last Admin Dose Admin Nicotine (Nicoderm Cq 14MG Patch) 1 patch QAM TD 07/06/16 09:00 08/05/16 08:59 07/17/16 08:14 1 PATCH Miscellaneous (Remove Nicoderm Patch) 1 ea HS N/A 07/06/16 21:00 08/05/16 20:59 07/15/16 21:26 1 EA Miscellaneous (Iv Fluids Completed) 1 ea PRN PRN N/A 07/05/16 23:30 07/05/17 23:29 Acetaminophen 650 mg 650 mg Q4H PRN PO 07/06/16 01:30 08/05/16 01:29 07/06/16 19:33 650 MG Piperacillin Sod/ Tazobactam Sod/ Dextrose (Zosyn Iv/D5 100ml) 115 ml @ 28.75 mls/ hr Q8@0200,1000,1800 IV 07/06/16 18:00 07/20/16 17:59 07/17/16 10:27 28.75 MLS/HR Piperacillin Sod/ Tazobactam Sod (Consult) 1 ea UD PRN N/A 07/06/16 11:30 07/20/16 11:29 Miconazole Nitrate (Desenex Powder) 1 appln PRN PRN EXT 07/06/16 12:30 08/05/16 12:29 07/06/16 17:56 1 APPLN Folic Acid (Folvite Tab) 1 mg QAM PO 07/08/16 09:00 08/07/16 08:59 Future hold 07/17/16 08:10 1 MG Ascorbic Acid (Vitamin C Tab) 1,000 mg QAM PO 07/10/16 09:00 08/09/16 08:59 07/17/16 08:12 1,000 MG Heparin Sodium (Porcine) (Heparin Sq 5000 Unit/0.5ml) 5,000 unit Q12 SQ 07/09/16 21:00 08/08/16 20:59 07/17/16 08:22 5,000 UNIT Lorazepam (Ativan Inj) 1 mg Q2HWA PRN IV 07/11/16 20:00 08/10/16 19:59 07/13/16 12:30 1 MG Morphine Sulfate (MoRPHine SULFATE INJ) 2 mg Q2H PRN IV 07/12/16 08:15 07/26/16 08:14 07/17/16 16:40 2 MG Enteral Nutritional Formula (Boost Plus Vanilla) 1 can TIDM PO 07/14/16 07:15 08/13/16 07:14 07/17/16 16:41 1 CAN Pantoprazole Sodium (Protonix Tab) 40 mg QAM PO 07/15/16 09:00 08/14/16 08:59 07/17/16 08:11 40 MG Ipratropium [place] (Atrovent 0.02% 0.5MG/2.5ML Neb) 0.5 mg Q6H PRN INH 07/15/16 09:10 08/14/16 09:09 Levalbuterol (Xopenex 1.25MG/ 0.5ML Neb) 1.25 mg Q6H PRN INH 07/15/16 09:10 08/14/16 09:09 Docusate Sodium (coLACE SYRUP) 100 mg BID PRN PO 07/15/16 21:00 08/14/16 20:59 Oxycodone/ Acetaminophen (Percocet 5-325MG Tab) 1 tab Q4 PRN PO 07/15/16 16:00 07/29/16 15:59 07/16/16 13:56 1 TAB Thiamine HCl (Vitamin B-1 Tab) 100 mg QAM PO 07/16/16 09:00 08/15/16 08:59 07/17/16 08:12 100 MG Clonidine HCl (Catapres Tab) 0.1 mg Q4 PRN PO 07/15/16 15:00 08/14/16 14:59 07/16/16 04:27 0.1 MG Amlodipine Besylate (Norvasc Tab) 10 mg QAM PO 07/16/16 08:30 08/15/16 08:29 07/17/16 08:11 10 MG
[2016-07-18] VITALS (7 sets, daily range): BP systolic 120–171; BP diastolic 63–91; PULSE 66–113; TEMP 36.4–38.1; O2SAT 90–99
[2016-07-18] MEDS: PIPERACILL/TAZOBAC IV 3.375 GM in DEXTROSE 5% 100ML 100 ML IV SCH ×3 (01:49→17:21)
[2016-07-18] MEDS: LORAZEPAM 2 MG/ML 1 ML VIAL IV PRN ×3 (04:48→15:11)
[2016-07-18 07:18] LABS: HEMATOCRIT 32.9 % (42-52); MEAN CELL VOLUME 94.5 fL (80-100); MEAN CORPUSCULAR HEMOGLOBIN 32.8 pg (25-34); MEAN CORPUSCULAR HGB CONC 34.7 g/dl (32-36); MEAN PLATELET VOLUME 9.1 fL (7.4-10.4); PLATELET COUNT 870 K/uL (130-400); RED BLOOD COUNT 3.48 M/uL (4.7-6.1); WHITE BLOOD COUNT 21.86 K/uL (4.8-10.8)
[2016-07-18] MEDS: BOOST PLUS VANILLA PO SCH ×6 (07:45→16:56)
[2016-07-18] MEDS: PANTOprazole SOD 40 MG TAB PO SCH (07:48)
[2016-07-18 07:49] LABS: BUN/CREATININE RATIO 7.4 (10-20); CALCIUM 8.3 mg/dl (8.5-10.1); CREATININE 0.84 mg/dl (0.60-1.40)
[2016-07-18] MEDS: AMLODIPINE BESYLATE 5 MG TAB PO SCH (07:49)
[2016-07-18] MEDS: ASCORBIC ACID 500 MG TAB PO SCH (07:49)
[2016-07-18] MEDS: NICOTINE 14 MG/24 HR TDSY TD SCH (07:49)
[2016-07-18] MEDS: THIAMINE HCL 100 MG TAB PO SCH (07:49)
[2016-07-18] MEDS: OXYCODONE/ACETAMINOPHEN 5-325 TAB PO PRN (08:00)
[2016-07-18] MEDS ORDERED: POTASSIUM CHLORIDE 20 MEQ TABCR PO ONE (08:45)
[2016-07-18] MEDS: POTASSIUM CHLR 10 MEQ / WTR 10 MEQ in PREMIXED WATER 100 ML IV SCH ×4 (09:02→12:20)
[2016-07-18] MEDS: HEPARIN SOD 5000 UNIT/0.5 ML CARP SQ SCH (09:04)
[2016-07-18] MEDS ORDERED: OPTIRAY 320 IV PRN (10:15)
--- NOTE | 2016-07-18 10:38 | Infectious Disease Progress Nt ---
Progress Note Date of Service Jul 18, 2016. Subjective Pt evaluation today including: conversation w/ patient, physical exam, chart review, lab review, review of studies, review of inpatient medication list WBC count this morning is 21.86. He states that he feels Creatinine is 0.84 today. C. Diff toxin is negative again. Patient is feeling slightly better today. He states that he is mad he can't have a beer. He is having no SOB. All Other Systems: Reviewed and Negative Medications Current Inpatient Medications Medications (Trade) Dose Ordered Sig/Jaylene Route Start Time Stop Time Status Last Admin Dose Admin Nicotine (Nicoderm Cq 14MG Patch) 1 patch QAM TD 07/06/16 09:00 08/05/16 08:59 07/18/16 07:49 1 PATCH Miscellaneous (Remove Nicoderm Patch) 1 ea HS N/A 07/06/16 21:00 08/05/16 20:59 07/17/16 20:41 1 EA Miscellaneous (Iv Fluids Completed) 1 ea PRN PRN N/A 07/05/16 23:30 07/05/17 23:29 Acetaminophen 650 mg 650 mg Q4H PRN PO 07/06/16 01:30 08/05/16 01:29 07/06/16 19:33 650 MG Piperacillin Sod/ Tazobactam Sod/ Dextrose (Zosyn Iv/D5 100ml) 115 ml @ 28.75 mls/ hr Q8@0200,1000,1800 IV 07/06/16 18:00 07/20/16 17:59 07/18/16 09:44 28.75 MLS/HR Piperacillin Sod/ Tazobactam Sod (Consult) 1 ea UD PRN N/A 07/06/16 11:30 07/20/16 11:29 Miconazole Nitrate (Desenex Powder) 1 appln PRN PRN EXT 07/06/16 12:30 08/05/16 12:29 07/06/16 17:56 1 APPLN Folic Acid (Folvite Tab) 1 mg QAM PO 07/08/16 09:00 08/07/16 08:59 Future hold 07/18/16 07:48 1 MG Ascorbic Acid (Vitamin C Tab) 1,000 mg QAM PO 07/10/16 09:00 08/09/16 08:59 07/18/16 07:49 1,000 MG Heparin Sodium (Porcine) (Heparin Sq 5000 Unit/0.5ml) 5,000 unit Q12 SQ 07/09/16 21:00 08/08/16 20:59 07/18/16 09:04 5,000 UNIT Lorazepam (Ativan Inj) 1 mg Q2HWA PRN IV 07/11/16 20:00 08/10/16 19:59 07/18/16 08:02 1 MG Morphine Sulfate (MoRPHine SULFATE INJ) 2 mg Q2H PRN IV 07/12/16 08:15 07/26/16 08:14 07/17/16 16:40 2 MG Enteral Nutritional Formula (Boost Plus Vanilla) 1 can TIDM PO 07/14/16 07:15 08/13/16 07:14 07/17/16 16:41 1 CAN Pantoprazole Sodium (Protonix Tab) 40 mg QAM PO 07/15/16 09:00 08/14/16 08:59 07/18/16 07:48 40 MG Docusate Sodium (coLACE SYRUP) 100 mg BID PRN PO 07/15/16 21:00 08/14/16 20:59 Oxycodone/ Acetaminophen (Percocet 5-325MG Tab) 1 tab Q4 PRN PO 07/15/16 16:00 07/29/16 15:59 07/18/16 08:00 1 TAB Thiamine HCl (Vitamin B-1 Tab) 100 mg QAM PO 07/16/16 09:00 08/15/16 08:59 07/18/16 07:49 100 MG Clonidine HCl (Catapres Tab) 0.1 mg Q4 PRN PO 07/15/16 15:00 08/14/16 14:59 07/16/16 04:27 0.1 MG Amlodipine Besylate (Norvasc Tab) 10 mg QAM PO 07/16/16 08:30 08/15/16 08:29 07/18/16 07:49 10 MG Hydralazine HCl 25 mg 25 mg TID PO 07/17/16 18:00 08/16/16 17:59 07/18/16 07:48 25 MG Potassium Chloride/Prmx (Kcl 10 Meq / Wtr/Premixed Water) 100 ml @ 100 mls/hr Q1H IV 07/18/16 08:45 07/18/16 12:44 07/18/16 10:07 100 MLS/HR Ioversol (Optiray 320) 100 ml UD PRN IV 07/18/16 10:15 07/22/16 10:14 Objective Vital Signs Date Time Temp Pulse Resp B/P Pulse Ox O2 Delivery O2 Flow Rate FiO2 07/18/16 08:00 Room Air 07/18/16 07:09 113 17 145/91 91 Room Air 07/18/16 04:58 36.9 99 20 171/91 93 Nasal Cannula 2.0 07/18/16 04:10 Nasal Cannula 2.0 07/18/16 00:10 Nasal Cannula 2.0 07/17/16 23:55 36.9 96 20 153/83 92 Nasal Cannula 2.0 07/17/16 20:05 Nasal Cannula 2.0 07/17/16 19:26 37.5 82 20 137/79 97 Room Air 07/17/16 16:00 93 Nasal Cannula 2.0 07/17/16 15:16 37.6 83 18 156/85 93 Nasal Cannula 2.0 07/17/16 12:00 95 Nasal Cannula 2.0 07/17/16 11:37 37.7 86 18 152/85 95 Nasal Cannula 2.0 Physical Exam General Appearance: WD/WN, no apparent distress Eyes: normal inspection, sclerae normal ENT: hearing grossly normal Neck: supple, trachea midline Respiratory/Chest: chest non-tender, no respiratory distress, no accessory muscle use, + crackles (left base with mild crackles) Cardiovascular: + tachycardia Abdomen: normal bowel sounds, non tender, soft Neurologic/Psychiatric: alert, normal mood/affect Skin: normal color, warm/dry, no rash Laboratory Results Item Value Date Time C.difficile Toxin B Gene (PCR) - Final Complete 07/18/16 0025 Stool No C. difficile toxin B gene detected Last 24 Hours Test 07/18/16 06:25 White Blood Count 21.86 K/uL Red Blood Count 3.48 M/uL Hemoglobin 11.4 g/dL Hematocrit 32.9 % Mean Corpuscular Volume 94.5 fL Mean Corpuscular Hemoglobin 32.8 pg Mean Corpuscular Hemoglobin Concent 34.7 g/dl RDW Standard Deviation 44.8 fL RDW Coefficient of Variation 13.0 % Platelet Count 870 K/uL Mean Platelet Volume 9.1 fL Sodium Level 136 mmol/L Potassium Level 3.0 mmol/L Chloride Level 102 mmol/L Carbon Dioxide Level 21 mmol/L Anion Gap 13.0 mmol/L Blood Urea Nitrogen 6 mg/dl Creatinine 0.84 mg/dl Est Creatinine Clear Calc Drug Dose 84.5 ml/min Estimated GFR () 117.5 Estimated GFR (Non- 101.4 BUN/Creatinine Ratio 7.4 Random Glucose 107 mg/dl Calcium Level 8.3 mg/dl Assessment and Plan Patient with left rib fractures, left clavicle fracture, possible aspiration pneumonia, but he has improved substantially. He is currently on IV Zosyn. He continues to have some mild crackles of the lower lungs. Will finish 14 days of Zosyn (07/20 stop date) and then discontinue and follow off of abx therapy. Plan: 1. Continue Zosyn to complete 14 days (stop date 07/20) case reviewed and agree with above assessment.
[2016-07-18] MEDS ORDERED: SODIUM CHLORIDE 0.9% 500ML 500 ML IV SCH (12:50)
[2016-07-18] MEDS ORDERED: AZTREONAM IV 2,000 MG in DEXTROSE 5% 100ML 100 ML IV SCH (13:15)
[2016-07-18] MEDS ORDERED: LEVOFLOXACIN / D5W 500 MG in PREMIXED IN D5W 100 ML IV SCH (13:15)
[2016-07-18] MEDS: SODIUM CHLORIDE 0.9% 1000ML 1,000 ML IV SCH ×2 (13:19→21:27)
--- NOTE | 2016-07-18 14:02 | DIAGNOSTIC IMAGING REPORT ---
CT SCAN OF THE ABDOMEN AND PELVIS WITH IV CONTRAST CLINICAL HISTORY: Sepsis. Leukocytosis. Generalized abdominal pain. COMPARISON STUDY: KUB dated 07/12/2016 and abdominal ultrasound dated 07/08/2016. TECHNIQUE: Following the IV administration of 118 cc of Optiray 320, CT scan of the abdomen and pelvis is performed from the lung bases to the proximal femora. Images are reviewed in the axial, sagittal, and coronal planes. IV contrast was administered without complication. Automated dose control exposure was utilized. The examination is degraded by streak artifact from the patient's arms which could not be elevated above the abdomen or pelvis. FINDINGS: Lung bases: The heart is normal in size and without pericardial effusion. There is segmental pulmonary embolus identified within the right lower lobe pulmonary artery. This is seen on image #1. A pleural drain is noted at the left lung base. There are small to moderate right and trace left pleural effusions. There is a small left basilar pneumothorax. Patchy airspace consolidation is seen at both lung bases, left greater than right Liver: Evaluation of the liver is degraded by streak artifact. The contrast-enhanced liver is normal in size, contour, and attenuation. There is no intrahepatic biliary ductal dilatation. The hepatic veins and portal veins are patent. Gallbladder: Contracted. Spleen: Normal in size and attenuation. Pancreas: Unremarkable. Adrenal glands: Unremarkable. Kidneys: The contrast enhanced kidneys demonstrate mild cortical atrophy and without hydronephrosis. The kidneys enhance symmetrically. A circumaortic left renal vein is incidentally noted. Abdominal vasculature: The abdominal aorta is normal in course and caliber noting moderate to advanced atherosclerotic calcification. Bowel: The small bowel and colon are normal in course and caliber. There is moderate sigmoid diverticulosis without CT evidence of acute diverticulitis. Liquid stool is noted throughout the colon. There is no colonic wall thickening or pericolonic inflammation. The appendix is well-visualized and normal. Peritoneum: There is no intraperitoneal free air or abdominal ascites. Lymphadenopathy: None. Pelvic viscera: The the bladder wall appears thickened and hyperemic. Minimal pericystic stranding is noted. Small foci of gas are present within the bladder lumen. The prostate and seminal vesicles are normal as imaged. Skeletal structures: The skeletal structures are osteopenic. There is a nondistracted fracture of the left iliac wing. No lytic or blastic lesions are seen. Soft tissues: There is mild body wall edema. IMPRESSION: 1. Segmental pulmonary embolus is identified within the right lower lobe pulmonary artery. 2. A pleural drain is seen at the left lung base and there is a small left basilar pneumothorax. 3. Small to moderate right and trace left pleural effusions. There is bibasilar airspace consolidation, left greater than right. Correlate clinically for evidence of pneumonia. 4. The bladder wall appears thickened and hyperemic. Correlate clinically and with urinalysis for evidence of cystitis. 5. Liquid stool is seen throughout the colon. There is no associated colonic wall thickening or pericolonic inflammation. Correlate clinically for evidence of a diarrheal illness. 6. Nondistracted fracture of the left iliac wing. 7. Additional changes as above. Electronically signed by: Froy Lau M.D. 07/18/2016 2:00 PM
--- NOTE | 2016-07-18 14:17 | DIAGNOSTIC IMAGING REPORT ---
CT OF THE CHEST WITH IV CONTRAST CLINICAL HISTORY: Chest pain. Leukocytosis. Sepsis. COMPARISON STUDY: Chest radiograph July 14, 2016. TECHNIQUE: Following IV administration of 118 mL of Optiray-320, helical axial images of the chest were obtained. Images were viewed in the axial, sagittal and coronal planes. IV contrast was administered without complication. The abdomen and pelvis will be reported separately. CT DOSE: 551.39 mGy.cm FINDINGS: The ascending aorta is moderately dilated, measuring 4.5 cm. The heart is mildly enlarged. There is no pericardial effusion. A small right pleural effusion is noted. There is a trace residual left pleural effusion. A left chest tube is in place. This abuts the mediastinum. There is a small left pneumothorax. There is extensive left lower lobe volume loss with airspace opacity. There is extensive right lower lobe volume loss as well. There is mild diffuse bronchial wall thickening beginning. Ground glass opacities within the right upper lobe are noted. Although suboptimally assessed on this exam, there are possible pulmonary emboli within the right middle lobe. This exam is compromised by respiratory motion artifact. There are fractures of the left first through 12th ribs which appear acute. Several ribs are fractured in several locations. There is a mildly displaced fracture of the manubrium with a small mediastinal hematoma. There is a mildly displaced fracture the distal left clavicle. The abdomen and pelvis will be reported separately. IMPRESSION: 1. Left chest tube in place. Small left pneumothorax with trace residual pleural effusion. Extensive left lower lobe airspace opacity with volume loss. This could reflect pneumonia or atelectasis. In addition, there is a small right pleural effusion with extensive right lower lobe opacity which could reflect consolidation or atelectasis. 2. Acute fractures of the left first through 12th ribs with several ribs fractured in several locations. 3. Possible segmental pulmonary embolus within the right middle lobe. This is difficult to assess given respiratory motion. 4. Moderate dilatation of the ascending aorta. 5. Acute fractures of the manubrium and distal left clavicle. Electronically signed by: Kalin Roberts M.D. 07/18/2016 2:15 PM
[2016-07-18 14:52] LABS: MANUAL MICROSCOPIC REQUIRED? NO; REVIEW REQ? NO; URINE APPEARANCE CLEAR (CLEAR); URINE BILIRUBIN NEG (NEG); URINE COLOR YELLOW; URINE NITRITE NEG (NEG); URINE SPECIFIC GRAVITY > 1.045 (1.000-1.030); UROBILINOGEN NEG (NEG)
--- NOTE | 2016-07-18 15:08 | Pharmacy Progress Note ---
Pharmacy Antibiotic Consult Date of Service: Jul 18, 2016. Pharmacy Dosing Scope Pharmacy is consulted to initiate vancomycin (in addition to current Zosyn) IV dosing therapy, order appropriate labs and adjust drug dose/frequency. Subjective The patient is a 50 year old male admitted on Jul 06, 2016 at 13:12. Objective Height (Feet): 5 Height (Inches): 11.00 Weight (Kilograms): 57.400 Lab Results (24hrs): Laboratory Tests Test 07/18/16 06:25 BUN/Creatinine Ratio 7.4 Blood Urea Nitrogen 6 mg/dl Creatinine 0.84 mg/dl White Blood Count 21.86 K/uL Micro Results: Item Value Date Time Blood Culture - Final Complete 07/06/16 1115 Blood Coryne. Species Not Jeikeium Blood Culture - Final Complete 07/06/16 1120 Blood NO GROWTH MRSA DNA Surveillance Screen - Final Complete 07/07/16 0000 Nasal Specimen Negative for MRSA by DNA Probe Gram Stain - Final Complete 07/07/16 2018 Sputum Trach. Tube Suction Gram Stain - Final Complete 07/08/16 1511 Pleural Fluid (Thoracentesis) Left Acid Fast Stain - Final Resulted 07/08/16 1511 Pleural Fluid (Thoracentesis) Left Fungal Smear - Final Resulted 07/08/16 1511 Pleural Fluid (Thoracentesis) Left Blood Culture - Final Complete 07/08/16 2028 Blood NO GROWTH Blood Culture - Final Complete 07/08/16 2030 Blood NO GROWTH Gram Stain - Final Complete 07/09/16 0347 Drainage - Surface Foot Right C.difficile Toxin B Gene (PCR) - Final Complete 07/11/16 0720 Stool No C. difficile toxin B gene detected C.difficile Toxin B Gene (PCR) - Final Complete 07/18/16 0025 Stool No C. difficile toxin B gene detected Shiga Toxin Test Received 07/18/16 1100 Stool Pending WBC Smear - Final Complete 07/18/16 1100 Stool Blood Culture Received 07/18/16 1410 Blood Pending Blood Culture Received 07/18/16 1420 Blood Pending Urine Culture Received 07/18/16 1425 Urine , Clean Catch Pending Recent Pertinent Medications Item Value Date Time Piperacillin Sod/ 115 ml @ 28.75 mls/hr 07/06/16 1800 Tazobactam Sod Q8@0200,1000,1800/IV 07/18/16 0944 3.375 gm/Dextrose Assessment & Plan Assessment: * Patient with left rib fractures, left clavicle fracture, possible aspiration pneumonia, but he has improved substantially. * He is currently on IV Zosyn. He continues to have some mild crackles of the lower lungs. Will finish 14 days of Zosyn (07/20 stop date) and then discontinue and follow off of abx therapy. * The patient is febrile and WBC increased over the past day * Vancomycin added to ABX regimen Plan: Vancomycin: * Loading dose: 1750 mg IV X 1 dose * Maintenance dose: 1000 mg IV q8H * dose based upon recent regimen * Goal trough 15-20mcg/mL for sepsis of an unknown source * Trough level 07/20/16 prior to the 08:00 dose Zosyn: * Continue 3.375g IV q8H (infused over 4hours per dose) x 14 days (per ID) Pharmacy will continue to follow and will adjust dose/frequency as necessary. Thank you
[2016-07-18] MEDS ORDERED: VANCOMYCIN CONSULT ACTIVE PRN (15:15)
[2016-07-18] MEDS ORDERED: VANCOMYCIN INJ 1,750 MG in SODIUM CHLORIDE 0.9% 500ML 500 ML IV ONE (15:30)
[2016-07-18 16:18] LABS: PARTIAL THROMBOPLASTIN RATIO 1.1
--- NOTE | 2016-07-18 16:25 | SURGICAL CONSULTATION ---
DATE OF CONSULTATION: 07/18/2016 REASON FOR CONSULTATION: Draining right chest tube. HISTORY OF PRESENT ILLNESS: Aaron Chang is a 50-year-old male who has a history of alcoholism who came in with chest pain, was found to have chest fractures and a chest tube was inserted. He appeared to have a hemothorax. I was asked to see him as his chest tube continues to drain quite a bit. He is on 2 liters of O2 per minute currently. States he does have a "smoker's cough." PAST MEDICAL HISTORY: 1. Malnutrition. 2. History of heavy cigarette smoking. 3. History of heavy alcohol use. 4. Hypertension. PAST SURGICAL HISTORY: Apparent none. MEDICATIONS: (Currently in hospital) 1. Azactam. 2. Levaquin. 3. Zosyn. 4. Potassium. 5. Vancomycin. 6. Acetaminophen. 7. Amlodipine. 8. Ascorbic acid. 9. Boost. 10. Clonidine. 11. Colace syrup. 12. Folic acid. 13. Heparin 5000 q. 12. 14. Hydralazine. 15. Lorazepam p.r.n. 16. Miconazole nitrate powder. 17. Morphine. 18. Nicotine patch. 19. Oxycodone. 20. Protonix. 21. Thiamine. ALLERGIES: PENICILLIN. SOCIAL HISTORY: The patient is originally from [place]. He has been smoking and drinking his entire adult life. He is currently in a homeless fdc. He is a very poor historian. FAMILY MEDICAL HISTORY: Apparently there are cancers in both parents, although he was not able to tell me exactly what kind. REVIEW OF SYSTEMS: Very difficult to obtain. He apparently is better than when he came into the hospital. He denies nausea or vomiting. He has had no diaphoresis or dizziness. Denies any neurologic symptoms such as amaurosis fugax or seizures. He does have 5th and 6th fractures on the right as well as 4th and 7th and the distal clavicle. He denies any hallucinations or tremors. He denies palpitations or productive cough. He does have a cough, however. PHYSICAL EXAMINATION: GENERAL: This is a cachectic appearing white male who is 5 feet 11 inches tall and weighs 126 pounds. He wears glasses. HEENT: Extraocular movements are intact. Sclerae are pale and anicteric. He has no nasolabial flattening. I do not detect nystagmus. His oral mucosa is moist. His upper teeth are in very poor repair, black and quite poor appearance. His lower teeth are a bit better. I see no obvious oral mucosal lesions. NECK: Supple. He has no supraclavicular or cervical lymphadenopathy, neck vein distention, thyromegaly or carotid bruits. LUNGS: Frankly his lungs really do not sound that bad. He has no wheezing. He has a few rhonchi, but worse on the left. His chest tube site is clean. HEART: He has a regular rate and rhythm of his heart. ABDOMEN: Soft, flat, nontender. No evidence of ascites. He has good femoral pulses. I can easily palpate pedal pulses. He has no joint effusions. He has no skin breakdown of his feet at all. NEUROLOGIC: He has no obvious focal deficits. He has mild asterixis. He is awake and alert, although appears to be a bit confused at times. DATA: Upon reviewing the CT scan, it appears he may have small pulmonary emboli in the right lower lobe. He has an infiltrative pattern in the medial aspect of the left lower lobe. Chest tube appears to be in good place. It is draining serous fluid. It is hard for me to say how much he drained, but apparently he has not drained much over the last 24 hours. I have marked the chest tube and we will see him in the morning. ASSESSMENT AND PLAN: Persistent drainage from left chest tube. He has got more fluid on the right than he does on the left. Really he has problem in the left, it is infiltrated. If his chest tube drainage is down, I will remove it in the morning. LUIS EDUARDO
[2016-07-18] MEDS: HEPARIN 25,000 UNIT/500ML D5W 500 ML IV PRN (16:55)
--- NOTE | 2016-07-18 16:55 | DIAGNOSTIC IMAGING REPORT ---
BILATERAL LOWER EXTREMITY VENOUS DOPPLER HISTORY: Chest pain. Dyspnea. PE identified, looking for DVT as source, Phx COMPARISON STUDY: None. FINDINGS: There is normal compressibility, flow, and augmentation within the bilateral lower extremity deep venous systems. IMPRESSION: No DVT within the right or left lower extremity. Electronically signed by: Keven Vann M.D. 07/18/2016 4:54 PM
[2016-07-18] MEDS ORDERED: LOPERAMIDE HCL 2 MG CAP PO PRN (20:45)
[2016-07-18] MEDS: OXYCODONE/ACETAMINOPHEN 7.5-325 TAB PO SCH (21:27)
[2016-07-18 23:32] LABS: PARTIAL THROMBOPLASTIN RATIO 1.3
[2016-07-19] VITALS (8 sets, daily range): BP systolic 107–135; BP diastolic 67–79; PULSE 62–79; TEMP 36.4–37; O2SAT 91–97
[2016-07-19] MEDS ORDERED: HEPARIN IV BOLUS 5,000 UNIT in SYRINGE 0 ML IV ONE
[2016-07-19] MEDS: VANCOMYCIN INJ 1,000 MG in SODIUM CHLORIDE 0.9% 250ML 250 ML IV SCH ×4 (00:03→23:24)
[2016-07-19] MEDS: HEPARIN 25,000 UNIT/500ML D5W 500 ML IV PRN ×2 (00:04→13:24)
--- NOTE | 2016-07-19 00:15 | Progress Note ---
Medicine Progress Note Date & Time of Visit: Jul 18, 2016 at 12:00. Subjective Not responding to my questions--appears confused. Could not obtain ROS today. Consulted Thoracic Surgery to assist with chest tube. Objective Last 8 Hrs Date Time Temp Pulse Resp B/P Pulse Ox O2 Delivery O2 Flow Rate FiO2 07/18/16 23:31 36.9 66 20 124/63 94 Nasal Cannula 2.0 07/18/16 19:01 37.7 78 16 141/82 99 Nasal Cannula 2.0 Physical Exam: GEN: thin , frail, appears ill with visible goosebumps on skin, opens eyes but non-responsive to my questions. HEENT: NC/AT, normal sclerae CARDIO: tachy rate, S1/2 heard without m/g/r LUNGS: CTA bilaterally, no crackles, rales or wheezes, good diaphragmatic excursion, breath sounds heard bilaterally, chest tube in place on L side draining red-tinged serosanguinous fluid, bandages in place are c/d/i ABD: soft, no guarding, non-distended, +hypoactive BS EXTREMITY: no LE swelling or edema, extremities are warm and well-perfused N/M: no gross focal deficits. SKIN: warm and dry Laboratory Results: Last 24 Hours Test 07/18/16 06:25 07/18/16 14:25 07/18/16 15:59 07/18/16 22:45 White Blood Count 21.86 K/uL Red Blood Count 3.48 M/uL Hemoglobin 11.4 g/dL Hematocrit 32.9 % Mean Corpuscular Volume 94.5 fL Mean Corpuscular Hemoglobin 32.8 pg Mean Corpuscular Hemoglobin Concent 34.7 g/dl RDW Standard Deviation 44.8 fL RDW Coefficient of Variation 13.0 % Platelet Count 870 K/uL Mean Platelet Volume 9.1 fL Sodium Level 136 mmol/L Potassium Level 3.0 mmol/L Chloride Level 102 mmol/L Carbon Dioxide Level 21 mmol/L Anion Gap 13.0 mmol/L Blood Urea Nitrogen 6 mg/dl Creatinine 0.84 mg/dl Est Creatinine Clear Calc Drug Dose 84.5 ml/min Estimated GFR () 117.5 Estimated GFR (Non- 101.4 BUN/Creatinine Ratio 7.4 Random Glucose 107 mg/dl Calcium Level 8.3 mg/dl Urine Color YELLOW Urine Appearance CLEAR Urine pH 6.0 Urine Specific [place] > 1.045 Urine Protein NEG Urine Glucose (UA) NEG Urine Ketones NEG Urine Occult Blood NEG Urine Nitrite NEG Urine Bilirubin NEG Urine Urobilinogen NEG Urine Leukocyte Esterase NEG Activated Partial Thromboplast Time 28.4 SECONDS 32.9 SECONDS Partial Thromboplastin Ratio 1.1 1.3 Date/Time Source Procedure Growth Status 07/18/16 14:20 Blood Blood Culture Pending Received 07/18/16 14:10 Blood Blood Culture Pending Received 07/18/16 11:00 Stool WBC Smear - Final Complete 07/18/16 11:00 Stool Shiga Toxin Test Pending Received 07/18/16 11:00 Stool Stool Culture Pending Received 07/18/16 00:25 Stool C.difficile Toxin B Gene (PCR) - Final No C. difficile toxin B gene detected Complete 07/18/16 14:25 Urine , Clean Catch Urine Culture Pending Received Assessment & Plan This is a 50-year-old male, who lives in a homeless [place] [facility] with a history of alcoholism, smoking and hypertension presenting with left-sided rib/chest pains after a fall. Subsequent hemothorax with chest tube placement. Was septic from possible pneumonia and lower extremity infection? seen by ID and on iv abx. Went in to severe alcohol withdrawal and was s/p intubation and was on Precedex drip and Diprivan drip. Was extubated shortly after and transferred to tele. Tachypneic one night later and was transferred back to ICU. Pain meds were restarted and encephalopathy improved. Transferred back to floor with chest tube in place. Continues to drain, however, percocet was controlling pain and his MS improved to baseline. On Zosyn became acutely tachycardic and non-responsive (awake but was not answering questions as he just had 12 hours earlier), WBC increased to >20 and had 7-10 BMs since midnight. 1. Sepsis (tachycardia, worsened WBC, new onset diarrhea and known pneumonia with chest tube in place for >1 week- was initially concerned for sepsis 2/2 worsened infection-broadened abx, bolused with IVF and as patient was not able to speak to me, I got a CT c/a/p with contrast. CT a/p was unremarkable for a hidden infection, although PO contrast was not taken by patient. Chest imaging revealed a "possible" PE. He was empirically started on heparin but no warfarin until further clarification with a repeat CTA in 2 days time. Per radiologist he was moving around so much in the scanner, that some of the vessels could not be seen and this might have been overcalled to be conservative. Amelia is aware of heparin status and is now managing chest tube--will likely pull in am. ID followin and OK with continued Vanc/Zosyn for now. With no evidence of colitis on CT or feval leukocytes in stool, this is likely 2/2 antibiotic use. C-diff was negative. Imodium was started. 2. Diarrhea-likely 2/2 abx use. Imodium PRN 3. Left sided rib fractures s/p fall and subsequent hemothorax with chest tube placement-continues to drain approx 200 daily. Good breath sounds on exam. Amelia evaluated patient today and will likely d/c this in am. I noticed that percocet was not scheduled any longer, and he had not had pain meds since earlier in the morning. As this was thought to be a reason for his earlier encephalopathy, Percocet was rescheduled. As he was consistently reporting bad pain even on this during the last couple of days, I also increased the dose. 4. Hypertension-partly 2/2 pain, however, likely underlying HTN. Norvasc and hydralazine started this admission as they are meds that do not require follow- up and the patient is unreliable. 5. Encephalopathy 2/2 pain vs withdrawal vs sepsis- this has returned and he is not responding to prompting which is 180degrees from yesterday-resolved, sitter continued. He did pull out his IV line last night which was replaced-- he thought someone told him to do it. ICU team noted some facial twitching and ordered EEG was negative. Cont pain control and benzos PRN. 6. Poss aspiration pneumonia-less likely an issue after several days of clinical stability. Continue on Zosyn per ID team with broadening to Vanc based on clinical picture today. Cultures are negative to date except for 1 bottle positive for Corynebacterium thought to be a contaminant. REpeat cultures were drawn. Afebrile, but ill-appearing with visible chills on skin, stop neb treatments 7. Poss aspiration contributing to recent tachypnea and pneumonia. Speech and swallow eval-recs made to staff. Enteric feeding tube self-discontinued several day ago -pt is tolerating PO. Staff encouraging PO intake. 8. History of tobacco and ETOH abuse. 9. Deconditioning with prolonged ICU stay-cont PT/OT DVT prophy-heparin GI prophy-Protonix Dispo- Cont to monitor on tele with chest tube in place. Appreciate CM efforts to contact family members [facility] Current Inpatient Medications: Current Inpatient Medications Medications (Trade) Dose Ordered Sig/Jaylene Route Start Time Stop Time Status Last Admin Dose Admin Nicotine (Nicoderm Cq 14MG Patch) 1 patch QAM TD 07/06/16 09:00 08/05/16 08:59 07/18/16 07:49 1 PATCH Miscellaneous (Remove Nicoderm Patch) 1 ea HS N/A 07/06/16 21:00 08/05/16 20:59 07/18/16 21:27 1 EA Miscellaneous (Iv Fluids Completed) 1 ea PRN PRN N/A 07/05/16 23:30 07/05/17 23:29 Acetaminophen 650 mg 650 mg Q4H PRN PO 07/06/16 01:30 08/05/16 01:29 07/06/16 19:33 650 MG Piperacillin Sod/ Tazobactam Sod/ Dextrose (Zosyn Iv/D5 100ml) 115 ml @ 28.75 mls/ hr Q8@0200,1000,1800 IV 07/06/16 18:00 07/20/16 17:59 07/18/16 17:21 28.75 MLS/HR Piperacillin Sod/ Tazobactam Sod (Consult) 1 ea UD PRN N/A 07/06/16 11:30 07/20/16 11:29 Miconazole Nitrate (Desenex Powder) 1 appln PRN PRN EXT 07/06/16 12:30 08/05/16 12:29 07/06/16 17:56 1 APPLN Folic Acid (Folvite Tab) 1 mg QAM PO 07/08/16 09:00 08/07/16 08:59 Future hold 07/18/16 07:48 1 MG Ascorbic Acid (Vitamin C Tab) 1,000 mg QAM PO 07/10/16 09:00 08/09/16 08:59 07/18/16 07:49 1,000 MG Lorazepam (Ativan Inj) 1 mg Q2HWA PRN IV 07/11/16 20:00 08/10/16 19:59 07/18/16 15:11 1 MG Morphine Sulfate (MoRPHine SULFATE INJ) 2 mg Q2H PRN IV 07/12/16 08:15 07/26/16 08:14 07/17/16 16:40 2 MG Enteral Nutritional Formula (Boost Plus Vanilla) 1 can TIDM PO 07/14/16 07:15 08/13/16 07:14 07/18/16 16:56 1 CAN Pantoprazole Sodium (Protonix Tab) 40 mg QAM PO 07/15/16 09:00 08/14/16 08:59 07/18/16 07:48 40 MG Docusate Sodium (coLACE SYRUP) 100 mg BID PRN PO 07/15/16 21:00 08/14/16 20:59 Thiamine HCl (Vitamin B-1 Tab) 100 mg QAM PO 07/16/16 09:00 08/15/16 08:59 07/18/16 07:49 100 MG Clonidine HCl (Catapres Tab) 0.1 mg Q4 PRN PO 07/15/16 15:00 08/14/16 14:59 07/16/16 04:27 0.1 MG Amlodipine Besylate (Norvasc Tab) 10 mg QAM PO 07/16/16 08:30 08/15/16 08:29 07/18/16 07:49 10 MG Hydralazine HCl (Apresoline Tab) 25 mg TID PO 07/17/16 18:00 08/16/16 17:59 07/18/16 21:27 25 MG Ioversol 100 ml 100 ml UD PRN IV 07/18/16 10:15 07/22/16 10:14 Sodium Chloride 1,000 ml @ 125 mls/hr Q8H IV 07/18/16 13:15 08/17/16 13:14 07/18/16 21:27 125 MLS/HR Vancomycin HCl/ Sodium Chloride (Vancomycin Inj/ Nss 250ml) 270 ml @ 125 mls/hr Q8H IV 07/19/16 00:00 07/21/16 00:00 Vancomycin HCl 1 ea 1 ea UD PRN N/A 07/18/16 15:15 08/17/16 15:14 Heparin Sodium/ Dextrose (Heparin 25,000 Unit/500ml D5W) 500 ml @ 21 mls/hr [id number] PRN IV 07/18/16 16:45 08/17/16 16:44 07/18/16 16:55 21 MLS/HR Loperamide HCl (Imodium Cap) 2 mg UD PRN PO 07/18/16 20:45 08/17/16 20:44 Oxycodone/ Acetaminophen (Percocet 7.5-325MG Tab) 1 tab Q6H PO 07/18/16 21:00 08/01/16 20:59 07/18/16 21:27 1 TAB
[2016-07-19] MEDS: PIPERACILL/TAZOBAC IV 3.375 GM in DEXTROSE 5% 100ML 100 ML IV SCH ×4 (02:45→18:06)
[2016-07-19] MEDS: OXYCODONE/ACETAMINOPHEN 7.5-325 TAB PO SCH ×5 (02:46→21:09)
[2016-07-19 07:06] LABS: CREATININE 0.64 mg/dl (0.60-1.40)
[2016-07-19 07:11] LABS: HEMATOCRIT 26.5 % (42-52); MEAN CELL VOLUME 96.7 fL (80-100); MEAN CORPUSCULAR HEMOGLOBIN 32.1 pg (25-34); MEAN CORPUSCULAR HGB CONC 33.2 g/dl (32-36); PLATELET COUNT 631 K/uL (130-400); RED BLOOD COUNT 2.74 M/uL (4.7-6.1)
[2016-07-19 07:55] LABS: PARTIAL THROMBOPLASTIN RATIO 1.8
[2016-07-19] MEDS: BOOST PLUS VANILLA PO SCH ×4 (08:06→19:43)
[2016-07-19] MEDS: ASCORBIC ACID 500 MG TAB PO SCH (08:09)
[2016-07-19] MEDS: PANTOprazole SOD 40 MG TAB PO SCH (08:09)
[2016-07-19] MEDS: AMLODIPINE BESYLATE 5 MG TAB PO SCH (08:09)
[2016-07-19] MEDS: THIAMINE HCL 100 MG TAB PO SCH (08:10)
[2016-07-19] MEDS: NICOTINE 14 MG/24 HR TDSY TD SCH (08:10)
--- NOTE | 2016-07-19 10:32 | DIAGNOSTIC IMAGING REPORT ---
CHEST 2 VIEWS ROUTINE CLINICAL HISTORY: chest tube removal COMPARISON STUDY: 07/14/2016 FINDINGS: The chest has an emphysematous configuration. There are bilateral pleural effusions right greater than left, with associated by basilar atelectasis/consolidation. There is been interval removal of the left-sided chest tube. There is a 6 mm left apical pneumothorax. There are multiple left-sided rib fractures. There is been resolution of the previously identified interstitial edema.[ IMPRESSION: 1. Interval removal of the left-sided chest tube 2. 6 mm left apical pneumothorax 3. Interval resolution of the interstitial edema 4. Bilateral pleural effusions right greater than left with associated by basilar atelectasis/consolidation 5. Multiple left-sided rib fractures Electronically signed by: Alejandro Lucas M.D. 07/19/2016 10:30 AM
--- NOTE | 2016-07-19 14:31 | SURGERY PROGRESS NOTE ---
DATE: 07/19/2016 Mr. Chang was seen today. He has drained less than 100 mL of fluid out by my marking on this chest tube. It is clear and serous. In addition, I reviewed his CT scan quite carefully and I do not believe he has evidence of any end-stage cirrhosis, which would suggest an hepatic hydrothorax. At the patient's bedside I removed the chest tube by cutting the suture and putting an occlusive antimicrobial dressing. His chest x-ray showed a sliver of a pneumothorax, but I think he had even less fluid than yesterday's. I will be curious to see how much fluid he accumulates over the next few days, although I do not think it is going to be much. Will check a chest x-ray tomorrow. On exam Mr. Chang is obviously encephalopathic. However, his lungs sound better to me. He has no rhonchi or wheezing. He also looks better to me. At this point, I do not see evidence of a septic foci. We will follow along with serial chest x-rays.
[2016-07-19 14:58] LABS: BUN/CREATININE RATIO 8.8 (10-20); CALCIUM 7.3 mg/dl (8.5-10.1); CREATININE 0.59 mg/dl (0.60-1.40); MAGNESIUM 1.8 mg/dl (1.8-2.4); PHOSPHORUS 3.4 mg/dl (2.5-4.9); POTASSIUM 3.3 mmol/L (3.5-5.1)
--- NOTE | 2016-07-19 16:17 | Progress Note ---
Internal Med Progress Note Date of Service: Jul 19, 2016. Provider Documentation: SUBJECTIVE: patient resting comfortably alert and oriented has some soreness in left lower chest afebrile eating ok denies sob or cough OBJECTIVE: Vital Signs-as noted below Exam: General-. alert and awake and oriented ENT-normal hearing Neck-no neck masses Lungs-cta b/l no wheezing or crackles Heart-s1 and s2 heard regular , no murmurs Abdomen-soft bowel sounds present no distension Extremities-no pedal edema no erythema Neuro-alert and awake oriented moves extremities Lab data as noted below. ASSESSMENT & PLAN: This is a 50-year-old male, who lives in a homeless skilled nursing with a history of alcoholism, smoking and hypertension by chart history; presenting with left-sided rib/chest pains after a fall .Had left sided rib fractures and possible hemothorax. Was septic from possible pneumonia and lower extremity infection? seen by ID and on iv abx.Went in to severe alcohol withdrawal and was s/p intubation and was on Precedex drip and Diprivan drip. s/p left sided chest tub. cultures no growth so far.significant electrolyte abnormalities. s/p extubation and transferred to tele. But still confused and somewhat shaky. Requiring 6lts of oxygen. Then patient again became tachycardic, tachypneic and hypoxic and was transferred again to ICU on dairy clerk and was placed on mask. Patient was thought to be withdrawing from pain meds and pain management was consulted and was placed on pain meds and his encephalopathy improved.Continued to drain from chest tube.CT surgery discontinued chest tube today. Id recommends to complete 14 days of iv Zosyn(last dose 07/20/16). Currently resting comfortably and tolerating oral diet. Alcohol withdrawal patient was not much responding to gabapentin protocol, iv Ativan and Librium transferred to icu and s/p intubation and Precedex drip and Diprivan s/p extubation 07/10/16 and transferred to tele currently only on iv Ativan prn and last dose ws given on 07/18/16 Sepsis possible pneumonia superficial skin 'gangrene of the foot? deep tissue injury? as per wound care on iv fluids on vanco and Zosyn gm positive bacillin in one bottle of blood culture- corynebacterium mostly contaminant ID on board. to continue same abx for now cultures no growth so far adriannao stopped to stop iv zosyn in am Left-sided chest pain, secondary to acute left rib fractures; 4th to 7th ribs as well as left clavicle fracture secondary to accidental fall. pain control appreciate ortho input pt/ot. hemothorax consulted pulmonary s/p left sided chest tube by critical care - so far no growth in pleural fluid chest tube removed today by CT surgery. Hypoxia,.s/p intubation and extubation from pleural effusions sedation pneumonia/ f/u chest US-170ml on left side currently stable on 2lts via nasal canula. Hypertension history. iv Lopressor prn on clonidine prn may need medications on discharge.currently hypotensive Hyponatremia of 129 , likely secondary to dehydration.resolved. significant electrolyte abnormalities hypokalemia and hypophosphatemia and hypomagnesemia will replace will closely f/u labs Deep venous thrombosis prophylaxis: SCDs for now. DISPOSITION pt/ot social service for d/c planning Vital Signs: Date Time Temp Pulse Resp B/P Pulse Ox O2 Delivery O2 Flow Rate FiO2 07/19/16 15:00 Nasal Cannula 2.0 07/19/16 14:59 37.0 78 19 114/70 93 Nasal Cannula 3.0 07/19/16 14:02 75 124/70 07/19/16 12:00 Nasal Cannula 2.0 07/19/16 11:58 36.8 79 20 111/68 97 Nasal Cannula 2.0 07/19/16 08:00 Nasal Cannula 2.0 07/19/16 07:31 36.4 62 18 126/76 94 Nasal Cannula 2.0 07/19/16 06:05 66 121/73 07/19/16 04:00 Room Air 07/19/16 03:28 36.8 78 20 132/72 91 Nasal Cannula 2.0 07/19/16 00:00 Room Air 07/18/16 23:31 36.9 66 20 124/63 94 Nasal Cannula 2.0 07/18/16 20:00 Room Air 07/18/16 19:01 37.7 78 16 141/82 99 Nasal Cannula 2.0 Lab Results: Results Past 24 Hours Test 07/18/16 15:59 07/18/16 22:45 07/19/16 06:00 07/19/16 07:28 Range/Units Activated Partial Thromboplast Time 28.4 32.9 47.2 21.0-31.0 SECONDS Partial Thromboplastin Ratio 1.1 1.3 1.8 White Blood Count 11.00 4.8-10.8 K/uL Red Blood Count 2.74 4.7-6.1 M/uL Hemoglobin 8.8 14.0-18.0 g/dL Hematocrit 26.5 42-52 % Mean Corpuscular Volume 96.7 80-100 fL Mean Corpuscular Hemoglobin 32.1 25-34 pg Mean Corpuscular Hemoglobin Concent 33.2 32-36 g/dl RDW Standard Deviation 46.4 36.4-46.3 fL RDW Coefficient of Variation 13.4 11.5-14.5 % Platelet Count 631 130-400 K/uL Mean Platelet Volume 9.0 7.4-10.4 fL Creatinine 0.64 0.60-1.40 mg/dl Est Creatinine Clear Calc Drug Dose 184.8 ml/min Estimated GFR () 131.4 Estimated GFR (Non- 113.4 Test 07/19/16 14:02 Range/Units Sodium Level 138 136-145 mmol/L Potassium Level 3.3 3.5-5.1 mmol/L Chloride Level 105 98-107 mmol/L Carbon Dioxide Level 21 21-32 mmol/L Anion Gap 12.0 3-11 mmol/L Blood Urea Nitrogen 5 7-18 mg/dl Creatinine 0.59 0.60-1.40 mg/dl Est Creatinine Clear Calc Drug Dose 120.3 ml/min Estimated GFR () 135.9 Estimated GFR (Non- 117.2 BUN/Creatinine Ratio 8.8 10-20 Random Glucose 130 70-99 mg/dl Calcium Level 7.3 8.5-10.1 mg/dl Phosphorus Level 3.4 2.5-4.9 mg/dl Magnesium Level 1.8 1.8-2.4 mg/dl
[2016-07-19] MEDS ORDERED: POTASSIUM CHLORIDE 10 MEQ TABCR PO ONE (16:45)
[2016-07-19] MEDS ORDERED: BOOST PLUS VANILLA PO SCH ×2 (19:00)
[2016-07-20] VITALS (12 sets, daily range): BP systolic 118–155; BP diastolic 70–79; PULSE 61–90; TEMP 36.5–37.1; O2SAT 90–96
[2016-07-20] MEDS: PIPERACILL/TAZOBAC IV 3.375 GM in DEXTROSE 5% 100ML 100 ML IV SCH ×2 (02:08→10:59)
[2016-07-20] MEDS: OXYCODONE/ACETAMINOPHEN 7.5-325 TAB PO SCH ×4 (02:37→22:07)
[2016-07-20] MEDS ORDERED: VANCOMYCIN TROUGH SCH (07:30)
[2016-07-20 08:09] LABS: PARTIAL THROMBOPLASTIN RATIO 1.4
[2016-07-20 08:29] LABS: BUN/CREATININE RATIO 6.8 (10-20); CALCIUM 8.2 mg/dl (8.5-10.1); CREATININE 0.68 mg/dl (0.60-1.40); MAGNESIUM 1.9 mg/dl (1.8-2.4)
[2016-07-20] MEDS: HEPARIN 25,000 UNIT/500ML D5W 500 ML IV PRN ×2 (08:36→09:09)
[2016-07-20] MEDS: NICOTINE 14 MG/24 HR TDSY TD SCH (08:39)
[2016-07-20] MEDS: VANCOMYCIN INJ 1,000 MG in SODIUM CHLORIDE 0.9% 250ML 250 ML IV SCH (08:39)
[2016-07-20] MEDS: ASCORBIC ACID 500 MG TAB PO SCH (08:39)
[2016-07-20] MEDS: AMLODIPINE BESYLATE 5 MG TAB PO SCH (08:42)
[2016-07-20] MEDS: PANTOprazole SOD 40 MG TAB PO SCH (08:42)
[2016-07-20] MEDS: THIAMINE HCL 100 MG TAB PO SCH (08:42)
[2016-07-20] MEDS ORDERED: HEPARIN IV BOLUS 5,000 UNIT in SYRINGE 0 ML IV ONE (08:45)
--- NOTE | 2016-07-20 09:02 | DIAGNOSTIC IMAGING REPORT ---
CHEST ONE VIEW PORTABLE CLINICAL HISTORY: Pleural effusion. Pneumothorax. COMPARISON STUDY: 07/19/2016 FINDINGS: There is a tiny left apical pneumothorax the pleural separation 4 mm. The heart is enlarged. There are bilateral pleural effusions with associated bibasal airspace opacities.[ There is no failure. There are multiple left-sided rib fractures. There is a 7 mm left midlung zone opacity, possibly related to nipple shadow IMPRESSION: 1. Persistent bilateral pleural effusions with associated bibasal airspace opacities 2. 4 mm left apical pneumothorax 3. Multiple left-sided rib fractures Electronically signed by: Alejandro Lucas M.D. 07/20/2016 9:00 AM
--- NOTE | 2016-07-20 09:30 | SURGERY PROGRESS NOTE ---
DATE: 07/20/2016 Mr. Chang was seen today 1 day after we took a chest tube out of his left pleural cavity. He does not really have much in the way of fluid on the left. There is a questionable small pneumothorax and really having trouble seeing that today. He remains on 2 liters of O2 with saturations in the 90s. At this point I would like to check a chest x-ray in a couple of days. He appears to be stable without his chest tube.
[2016-07-20] MEDS: BOOST PLUS VANILLA PO SCH ×4 (10:59→18:18)
[2016-07-20] MEDS ORDERED: POTASSIUM CHLORIDE 20 MEQ TABCR PO ONE (11:00)
--- NOTE | 2016-07-20 14:51 | Infectious Disease Progress Nt ---
Progress Note Date of Service Jul 20, 2016. Subjective Pt evaluation today including: conversation w/ patient, physical exam, chart review, lab review, review of studies, review of inpatient medication list WBC count yesterday decreased to 11.00 from 21.86. Feel most likely bump in WBC count due to probable PE. Repeat urine and blood cultures showing no growth. Negative C. Diff toxin. Stool culture negative other than some emilee albicans. No WBC's in stool. CT of the abdomen/pelvis showed segmental PE in the right lower lobe pulmonary artery. Repeat CXR showed persistent pleural effusions and bibasilar airspace opacities. Noted interval removal of chest tube by Dr. Cisneros. Chest CR showed extensive lower lobe airspace opacity likely pneumonia versus atelectasis. All Other Systems: Reviewed and Negative Medications Current Inpatient Medications Medications (Trade) Dose Ordered Sig/Jaylene Route Start Time Stop Time Status Last Admin Dose Admin Nicotine (Nicoderm Cq 14MG Patch) 1 patch QAM TD 07/06/16 09:00 08/05/16 08:59 07/20/16 08:39 1 PATCH Miscellaneous (Remove Nicoderm Patch) 1 ea HS N/A 07/06/16 21:00 08/05/16 20:59 07/19/16 21:07 1 EA Miscellaneous (Iv Fluids Completed) 1 ea PRN PRN N/A 07/05/16 23:30 07/05/17 23:29 Acetaminophen 650 mg 650 mg Q4H PRN PO 07/06/16 01:30 08/05/16 01:29 07/06/16 19:33 650 MG Piperacillin Sod/ Tazobactam Sod/ Dextrose (Zosyn Iv/D5 100ml) 115 ml @ 28.75 mls/ hr Q8@0200,1000,1800 IV 07/06/16 18:00 07/20/16 17:59 07/20/16 10:59 28.75 MLS/HR Miconazole Nitrate (Desenex Powder) 1 appln PRN PRN EXT 07/06/16 12:30 08/05/16 12:29 07/06/16 17:56 1 APPLN Folic Acid (Folvite Tab) 1 mg QAM PO 07/08/16 09:00 08/07/16 08:59 Future hold 07/20/16 08:41 1 MG Ascorbic Acid (Vitamin C Tab) 1,000 mg QAM PO 07/10/16 09:00 08/09/16 08:59 07/20/16 08:39 1,000 MG Lorazepam (Ativan Inj) 1 mg Q2HWA PRN IV 07/11/16 20:00 08/10/16 19:59 07/18/16 15:11 1 MG Morphine Sulfate (MoRPHine SULFATE INJ) 2 mg Q2H PRN IV 07/12/16 08:15 07/26/16 08:14 07/17/16 16:40 2 MG Pantoprazole Sodium (Protonix Tab) 40 mg QAM PO 07/15/16 09:00 08/14/16 08:59 07/20/16 08:42 40 MG Docusate Sodium (coLACE SYRUP) 100 mg BID PRN PO 07/15/16 21:00 08/14/16 20:59 Thiamine HCl (Vitamin B-1 Tab) 100 mg QAM PO 07/16/16 09:00 08/15/16 08:59 07/20/16 08:42 100 MG Clonidine HCl (Catapres Tab) 0.1 mg Q4 PRN PO 07/15/16 15:00 08/14/16 14:59 07/16/16 04:27 0.1 MG Amlodipine Besylate (Norvasc Tab) 10 mg QAM PO 07/16/16 08:30 08/15/16 08:29 07/20/16 08:42 10 MG Hydralazine HCl (Apresoline Tab) 25 mg TID PO 07/17/16 18:00 08/16/16 17:59 07/20/16 14:33 25 MG Ioversol 100 ml 100 ml UD PRN IV 07/18/16 10:15 07/22/16 10:14 Vancomycin HCl/ Sodium Chloride (Vancomycin Inj/ Nss 250ml) 270 ml @ 125 mls/hr Q8H IV 07/19/16 00:00 07/21/16 00:00 07/20/16 08:39 125 MLS/HR Vancomycin HCl 1 ea 1 ea UD PRN N/A 07/18/16 15:15 08/17/16 15:14 Heparin Sodium/ Dextrose (Heparin 25,000 Unit/500ml D5W) 500 ml @ 31 mls/hr Q16H8M PRN IV 07/18/16 16:45 08/17/16 16:44 07/20/16 09:09 31 MLS/HR Loperamide HCl (Imodium Cap) 2 mg UD PRN PO 07/18/16 20:45 08/17/16 20:44 Oxycodone/ Acetaminophen (Percocet 7.5-325MG Tab) 1 tab Q6H PO 07/18/16 21:00 08/01/16 20:59 07/20/16 14:33 1 TAB Enteral Nutritional Formula (Boost Plus Vanilla) 1 can BID@1000,1900 PO 07/19/16 19:00 08/18/16 18:59 07/20/16 10:59 1 CAN Objective Vital Signs Date Time Temp Pulse Resp B/P Pulse Ox O2 Delivery O2 Flow Rate FiO2 07/20/16 14:31 76 127/77 91 Room Air 07/20/16 12:00 95 Nasal Cannula 2.0 07/20/16 11:56 36.5 82 20 145/78 90 Room Air 07/20/16 08:17 37.1 90 19 134/75 90 Nasal Cannula 2.0 07/20/16 08:00 95 Nasal Cannula 2.0 07/20/16 04:53 36.9 71 20 129/79 95 Nasal Cannula 2.0 07/20/16 04:00 Nasal Cannula 2.0 07/20/16 00:50 36.9 61 18 118/70 96 Nasal Cannula 2.0 50 07/20/16 00:49 36.9 61 18 118/70 96 2.0 07/20/16 00:00 Nasal Cannula 2.0 07/19/16 21:07 73 135/79 07/19/16 20:00 Nasal Cannula 2.0 07/19/16 19:49 36.7 73 20 107/67 95 Nasal Cannula 2.0 07/19/16 15:00 Nasal Cannula 2.0 07/19/16 14:59 37.0 78 19 114/70 93 Nasal Cannula 3.0 Physical Exam General Appearance: WD/WN, no apparent distress Eyes: normal inspection, sclerae normal ENT: hearing grossly normal (slightly SNOQUALMIE) Neck: supple Respiratory/Chest: no respiratory distress, no accessory muscle use, + pertinent finding (very mild course breath sounds at bilateral bases) Cardiovascular: regular rate, rhythm Abdomen: normal bowel sounds Neurologic/Psychiatric: alert, normal mood/affect Skin: normal color, warm/dry, no rash Laboratory Results CT SCAN OF THE ABDOMEN AND PELVIS WITH IV CONTRAST CLINICAL HISTORY: Sepsis. Leukocytosis. Generalized abdominal pain. COMPARISON STUDY: KUB dated 07/12/2016 and abdominal ultrasound dated 07/08/2016. TECHNIQUE: Following the IV administration of 118 cc of Optiray 320, CT scan of the abdomen and pelvis is performed from the lung bases to the proximal femora. Images are reviewed in the axial, sagittal, and coronal planes. IV contrast was administered without complication. Automated dose control exposure was utilized. The examination is degraded by streak artifact from the patient's arms which could not be elevated above the abdomen or pelvis. FINDINGS: Lung bases: The heart is normal in size and without pericardial effusion. There is segmental pulmonary embolus identified within the right lower lobe pulmonary artery. This is seen on image #1. A pleural drain is noted at the left lung base. There are small to moderate right and trace left pleural effusions. There is a small left basilar pneumothorax. Patchy airspace consolidation is seen at both lung bases, left greater than right Liver: Evaluation of the liver is degraded by streak artifact. The contrast-enhanced liver is normal in size, contour, and attenuation. There is no intrahepatic biliary ductal dilatation. The hepatic veins and portal veins are patent. Gallbladder: Contracted. Spleen: Normal in size and attenuation. Pancreas: Unremarkable. Adrenal glands: Unremarkable. Kidneys: The contrast enhanced kidneys demonstrate mild cortical atrophy and without hydronephrosis. The kidneys enhance symmetrically. A circumaortic left renal vein is incidentally noted. Abdominal vasculature: The abdominal aorta is normal in course and caliber noting moderate to advanced atherosclerotic calcification. Bowel: The small bowel and colon are normal in course and caliber. There is moderate sigmoid diverticulosis without CT evidence of acute diverticulitis. Liquid stool is noted throughout the colon. There is no colonic wall thickening or pericolonic inflammation. The appendix is well-visualized and normal. Peritoneum: There is no intraperitoneal free air or abdominal ascites. Lymphadenopathy: None. Pelvic viscera: The the bladder wall appears thickened and hyperemic. Minimal pericystic stranding is noted. Small foci of gas are present within the bladder lumen. The prostate and seminal vesicles are normal as imaged. Skeletal structures: The skeletal structures are osteopenic. There is a nondistracted fracture of the left iliac wing. No lytic or blastic lesions are seen. Soft tissues: There is mild body wall edema. IMPRESSION: 1. Segmental pulmonary embolus is identified within the right lower lobe pulmonary artery. 2. A pleural drain is seen at the left lung base and there is a small left basilar pneumothorax. 3. Small to moderate right and trace left pleural effusions. There is bibasilar airspace consolidation, left greater than right. Correlate clinically for evidence of pneumonia. 4. The bladder wall appears thickened and hyperemic. Correlate clinically and with urinalysis for evidence of cystitis. 5. Liquid stool is seen throughout the colon. There is no associated colonic wall thickening or pericolonic inflammation. Correlate clinically for evidence of a diarrheal illness. 6. Nondistracted fracture of the left iliac wing. 7. Additional changes as above. Last 24 Hours Test 07/20/16 07:47 07/20/16 14:20 Activated Partial Thromboplast Time 35.9 SECONDS Partial Thromboplastin Ratio 1.4 Sodium Level 138 mmol/L Potassium Level 3.0 mmol/L Chloride Level 105 mmol/L Carbon Dioxide Level 22 mmol/L Anion Gap 11.0 mmol/L Blood Urea Nitrogen 5 mg/dl Creatinine 0.68 mg/dl Est Creatinine Clear Calc Drug Dose 104.5 ml/min Estimated GFR () 128.2 Estimated GFR (Non- 110.6 BUN/Creatinine Ratio 6.8 Random Glucose 87 mg/dl Calcium Level 8.2 mg/dl Magnesium Level 1.9 mg/dl Vancomycin Level Trough 20.6 mcg/ml Assessment and Plan Patient with left rib fractures, left clavicle fracture, possible aspiration pneumonia, but he has improved substantially. Patient was placed on IV Vancomycin on top of IV Zosyn due to increased WBC count and lethargy/AMS. His WBC count has improved and he appeared to have a PE which most likely explains increased WBC count. Feel likely that findings on CXR and Chest CT represent atelectasis rather than pneumonia. The patient previously completed 9 days of IV Vancomycin plus 2 more now and has also completed 14 days of IV Zosyn. Will discontinue IV abx therapy at this time and follow off of therapy. Will continue to follow and reconsider if patient state changes. Case reviewed and agree with above assessment.
--- NOTE | 2016-07-20 15:00 | Progress Note ---
Internal Med Progress Note Date of Service: Jul 20, 2016. Provider Documentation: SUBJECTIVE: eating fine has some pain in his left shoulder no nausea no sob afebrile OBJECTIVE: Vital Signs-as noted below Exam: General-. alert and awake and oriented ENT-normal hearing Neck-no neck masses Lungs-cta b/l no wheezing or crackles Heart-s1 and s2 heard regular , no murmurs Abdomen-soft bowel sounds present no distension Extremities-no pedal edema no erythema Neuro-alert and awake oriented moves extremities Lab data as noted below. ASSESSMENT & PLAN: This is a 50-year-old male, who lives in a homeless retirement with a history of alcoholism, smoking and hypertension by chart history; presenting with left-sided rib/chest pains after a fall .Had left sided rib fractures and possible hemothorax. Was septic from possible pneumonia and lower extremity infection? seen by ID and on iv abx.Went in to severe alcohol withdrawal and was s/p intubation and was on Precedex drip and Diprivan drip. s/p left sided chest tub. cultures no growth so far.significant electrolyte abnormalities. s/p extubation and transferred to tele. But still confused and somewhat shaky. Requiring 6lts of oxygen. Then patient again became tachycardic, tachypneic and hypoxic and was transferred again to ICU on early childhood and was placed on mask. Patient was thought to be withdrawing from pain meds and pain management was consulted and was placed on pain meds and his encephalopathy improved.Continued to drain from chest tube.CT surgery discontinued chest tube today. Id recommends to complete 14 days of iv Zosyn(last dose 07/20/16). Currently resting comfortably and tolerating oral diet. Transfer to medical floor today.Psychiatry evaluation for alcoholism and depression?. Pt/OT. Alcohol withdrawal patient was not much responding to gabapentin protocol, iv Ativan and Librium transferred to icu and s/p intubation and Precedex drip and Diprivan s/p extubation 07/10/16 and transferred to tele currently only on iv Ativan prn and last dose ws given on 07/18/16 stable Sepsis possible pneumonia superficial skin 'gangrene of the foot? deep tissue injury? as per wound care on iv fluids on vanco and Zosyn gm positive bacillin in one bottle of blood culture- corynebacterium mostly contaminant ID on board. to continue same abx for now cultures no growth so far will stop abx in am Left-sided chest pain, secondary to acute left rib fractures; 4th to 7th ribs as well as left clavicle fracture secondary to accidental fall. pain control appreciate ortho input pt/ot. hemothorax consulted pulmonary s/p left sided chest tube by critical care - so far no growth in pleural fluid chest tube removed on 07/19/[address] surgery. small pneumothorax on xray post chest tube removal and repeat cxr today 44mm apical pneumothorax plan for repeat cxr in days Hypoxia,.s/p intubation and extubation from pleural effusions sedation pneumonia/ f/u chest US-170ml on left side currently stable on 2lts via nasal canula. Questionable PE on iv heparin will f/u repeat ct scan in am Hypertension history. iv Lopressor prn on clonidine prn may need medications on discharge.currently hypotensive Hyponatremia of 129 , likely secondary to dehydration.resolved. significant electrolyte abnormalities hypokalemia and hypophosphatemia and hypomagnesemia will replace will closely f/u labs Deep venous thrombosis prophylaxis: SCDs for now. DISPOSITION Transfer to medical floor pt/ot social service for d/c planning Vital Signs: Date Time Temp Pulse Resp B/P Pulse Ox O2 Delivery O2 Flow Rate FiO2 07/20/16 14:31 76 127/77 91 Room Air 07/20/16 12:00 95 Nasal Cannula 2.0 07/20/16 11:56 36.5 82 20 145/78 90 Room Air 07/20/16 08:17 37.1 90 19 134/75 90 Nasal Cannula 2.0 07/20/16 08:00 95 Nasal Cannula 2.0 07/20/16 04:53 36.9 71 20 129/79 95 Nasal Cannula 2.0 07/20/16 04:00 Nasal Cannula 2.0 07/20/16 00:50 36.9 61 18 118/70 96 Nasal Cannula 2.0 50 07/20/16 00:49 36.9 61 18 118/70 96 2.0 07/20/16 00:00 Nasal Cannula 2.0 07/19/16 21:07 73 135/79 07/19/16 20:00 Nasal Cannula 2.0 07/19/16 19:49 36.7 73 20 107/67 95 Nasal Cannula 2.0 07/19/16 15:00 Nasal Cannula 2.0 07/19/16 14:59 37.0 78 19 114/70 93 Nasal Cannula 3.0 Lab Results: Results Past 24 Hours Test 07/20/16 07:47 07/20/16 14:20 Range/Units Activated Partial Thromboplast Time 35.9 21.0-31.0 SECONDS Partial Thromboplastin Ratio 1.4 Sodium Level 138 136-145 mmol/L Potassium Level 3.0 3.5-5.1 mmol/L Chloride Level 105 98-107 mmol/L Carbon Dioxide Level 22 21-32 mmol/L Anion Gap 11.0 3-11 mmol/L Blood Urea Nitrogen 5 7-18 mg/dl Creatinine 0.68 0.60-1.40 mg/dl Est Creatinine Clear Calc Drug Dose 104.5 ml/min Estimated GFR () 128.2 Estimated GFR (Non- 110.6 BUN/Creatinine Ratio 6.8 10-20 Random Glucose 87 70-99 mg/dl Calcium Level 8.2 8.5-10.1 mg/dl Magnesium Level 1.9 1.8-2.4 mg/dl Vancomycin Level Trough 20.6 SEE COMMENT mcg/ml
[2016-07-20 15:27] LABS: PARTIAL THROMBOPLASTIN RATIO 2.2
[2016-07-21] MEDS: HEPARIN 25,000 UNIT/500ML D5W 500 ML IV PRN ×3 (02:13→23:03)
[2016-07-21] MEDS: OXYCODONE/ACETAMINOPHEN 7.5-325 TAB PO SCH ×4 (02:49→21:43)
[2016-07-21 03:00] VITALS: BP 152/71; PULSE 80; TEMP 36.4; O2SAT 94
[2016-07-21 07:33] LABS: HEMATOCRIT 30.2 % (42-52); MEAN CELL VOLUME 94.7 fL (80-100); MEAN CORPUSCULAR HEMOGLOBIN 32.3 pg (25-34); MEAN CORPUSCULAR HGB CONC 34.1 g/dl (32-36); MEAN PLATELET VOLUME 8.9 fL (7.4-10.4); PLATELET COUNT 785 K/uL (130-400); RED BLOOD COUNT 3.19 M/uL (4.7-6.1); WHITE BLOOD COUNT 10.57 K/uL (4.8-10.8)
[2016-07-21 07:52] LABS: PARTIAL THROMBOPLASTIN RATIO 2.1
[2016-07-21 08:03] VITALS: BP 146/82; PULSE 70; TEMP 36.9; O2SAT 97
[2016-07-21] MEDS: PANTOprazole SOD 40 MG TAB PO SCH (08:11)
[2016-07-21] MEDS: AMLODIPINE BESYLATE 5 MG TAB PO SCH (08:12)
[2016-07-21] MEDS: ASCORBIC ACID 500 MG TAB PO SCH (08:13)
[2016-07-21] MEDS: THIAMINE HCL 100 MG TAB PO SCH (08:13)
[2016-07-21] MEDS: NICOTINE 14 MG/24 HR TDSY TD SCH (08:19)
--- NOTE | 2016-07-21 11:37 | SURGERY PROGRESS NOTE ---
DATE: 07/21/2016 DATE: 07/21/2016. Mr. Chang is a 50-year-old male who [facility] on a [facility]ator and came in with a left pleural effusion after falling and fracturing ribs. Chest tube was placed. I removed this chest tube 48 hours ago and he had a very small apical pneumothorax afterwards. I was happy with his x-ray yesterday. We will check another chest x-ray in the morning, but I do not believe he is reaccumulating fluid. His oxygen saturation is 97% on 2 liters. I agree with a psychiatric evaluation and I feel physical therapy would be very helpful in trying to improve his ADLs.
--- NOTE | 2016-07-21 13:26 | CONSULTATION REPORT ---
DATE OF CONSULTATION: 07/21/2016 IDENTIFYING DATA: Aaron Chang is a 50-year-old gentleman who was homeless, using the services of [facility] here in [place]. He was admitted following a fall resulting in multiple rib fractures and clavicle fracture and further admitted for treatment. We are consulted at this point to evaluate alcoholism and depression. Information is gathered from the patient, the electronic medical record, and both considered to be reliable. CHIEF COMPLAINT: "I am feeling pretty hopeless." HISTORY OF PRESENT ILLNESS: Aaron Chang is a 50-year-old gentleman who has spent most of his adult life here in [place]. 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 One restaurant closed and they cut his hours at the other restaurant. He was unable to obtain additional work and so fell into homelessness. He had been using the services of [facility] during the day and the [facility] program at night during the winter months. He had been sleeping on the night prior to admission and had fallen out of his bed. He had been experiencing additional pain and his friends recommended he come to the Emergency Room. There was discovered that he had displaced fractures of the left 5th and 6th ribs with nondisplaced fractures of the left 3rd, 4th and 7th ribs. He also has been a daily drinker, drinking in excess of 10 beers a day for an extended period of time. After admission, he began to go into alcohol withdrawal. He developed hemothorax, requiring chest tube placement and also intubation. He experienced DTs, was treated with Librium and has been slowly progressing overtime. He is no longer in ICU and continues to progress. At the time of my interview, the patient is alert, oriented and cooperative. He is extremely hard of hearing without hearing aids and so you must yell loudly to be heard. He is fully oriented, aware of how long he has been in the hospital. He is off on the date by several days, but he has been in the hospital a long time and this seems acceptable. He indicates that his life is desperate circumstances, saying "I am beginning to lose hope. I do not have the home, a job, a car or any money." He would like to work and would continue to apply for physicians when he is discharged. He denies that he feels suicidal or depressed, but feels hopeless that his circumstances can change. His only living relative is a brother, who lives in [place], who also sounds as if he is alcohol impaired and living under meager circumstances. The patient says that last time he spoke with him, he was living in a TP. The patient denies that at this time he is experiencing any evidence of thought disorder including auditory or visual hallucinations or paranoia. He is very pleased with care he has gotten here and is willing to abide by any recommendation to his medical team makes. He does have some memory impairment for events that have gone during the hospital, for example, saying that he did not know he went through DTs while he was here. He says that he feels better physically than he has a long time and does not want to return to drinking alcohol. He denies suicidal or homicidal thinking. CURRENT MEDICATIONS: 1. Percocet 7.5/325 one tab q. 6 hours. 2. Imodium 2 mg p.r.n. diarrhea. 3. Heparin. 4. Hydralazine 25 mg t.i.d. 5. Vitamin B1 at 100 mg daily. 6. Norvasc 10 mg q.a.m. 7. Colace p.r.n. 8. Clonidine p.r.n. 9. Protonix 40 mg q.a.m. 10. Morphine 2 mg q. 2 hours p.r.n. pain. 11. Ativan 1 mg q. 2 hours while awake p.r.n. signs and symptoms of alcohol withdrawal. 12. Vitamin C 1000 mg q.a.m. 13. Folic acid 1 mg q.a.m. 14. Desenex powder p.r.n. 15. Nicoderm CQ 14 mg patch q.a.m. PAST PSYCHIATRIC HISTORY: The patient denies that he has ever had received psychiatric services. He denies he has ever been hospitalized. Denies any suicide attempts. ALLERGIES: PENICILLIN -- TIRED. PAST MEDICAL HISTORY: 1. Hypertension. 2. Tobacco use disorder. 3. Multiple left rib fractures. 4. Hemothorax, status post chest tubes. FAMILY HISTORY: Positive for both parents and a brother, who are alcoholics. He denies family history for psychiatric issues or suicide. SUBSTANCE ABUSE HISTORY: The patient had been drinking 10-12 beers per day prior to admission. As I said, he did go through a TP here in the hospital. He states that he began drinking in high school. He had indicated to the liaison nurse earlier that he had stopped drinking several weeks prior to admission. PERSONAL HISTORY: The patient grew up here in [place]. He is a high school graduate. 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 He has only 1 brother. His parents are . He has never and has no children. His only legal infraction was that of a DUI in high school. Psychological trauma history is denied. MENTAL STATUS EXAMINATION: A 50-year-old gentleman who is wearing a blue and white knit cap, with evidence of thinning hair, poor dentition. He is wearing glasses. He is alert and cooperative with the interview. He is extremely hard of hearing. He makes good eye contact. Motor behavior is unremarkable. Speech is of normal rate, volume, and tone. Affect is flat. Mood is "beginning to lose hope." His thought process is organized and goal directed. He denies thought disorder in the form of hallucinations or delusions. Today, he is fully oriented with the exception of the date, thinking that it may be the 10th. He recognizes that he is in the hospital. Further memory testing is not undertaken at this time. His intelligence is estimated to be average. His insight and judgment are fair. VITAL SIGNS: Temp 36.9, pulse 70, respirations 20, blood pressure 146/82, and pulse ox 97% on 2 liters. Most recent lab work: 1. CBC -- notable for RBC 3.19, hemoglobin and hematocrit 10.3 and 30.2, and platelet count 785,000. 2. Chem profile -- notable for low potassium of 3.0, BUN low at 5, and calcium low at 8.2. 3. Urinalysis -- without evidence of infection. 4. Coag studies -- aPTT 55.7 and PTT ratio 2.1. 5. Hepatitis A and C negative, legionella not detected. IMAGING: Most recent chest x-ray dated 07/20/2016 -- persistent bilateral pleural effusions with associated bibasilar airspace opacities. A 4-mm left apical pneumothorax. Multiple left-sided rib fractures. REVIEW OF SYSTEMS: Positive for complaints of arm pain, chest pain, fatigue, hopelessness. PHYSICAL EXAMINATION: As per Dr. Dalton. IMPRESSION: A 50-year-old gentleman who was admitted on July 05 after a fall resulting in multiple rib and clavicle fractures. He has had a complicated course including hemothorax, DTs requiring chest tube and events. He is slowly progressing, is now out of ICU. We are consulted to evaluate alcoholism and depression. At the time of my interview, although he admits that his circumstances are relatively hopeless, he is having a realistic reaction to his condition. He does not see himself as depressed and I do not think that he would benefit from antidepressants. He would like to work and wants to continue to work toward that and wants to remain sober following discharge. He has services with [facility], [facility], and [facility] for housing at night. He is not employed and so, is likely not eligible for getting an apartment through [facility] as he has to have a means of paying for his rent. I have read in the notes that Ms. Lei has obtained health insurance for him on a healthcare market place, which is a [place]. He seems reasonable in his thinking, willing to accept all recommendations both medically and psychiatrically. At this point, I am not going to recommend any medications. He would certainly benefit from all social service endeavors for housing and supplemental services. DIAGNOSES: 1. Adjustment disorder with depressed mood. 2. Medical conditions as above. 3. Alcohol dependence. PLAN: Has been reviewed with Dr. Ibeth Olmos. 1. Adjustment disorder with depressed mood -- no recommendations for medications at this time. 2. Alcohol dependence - the patient agrees to work toward maintaining his sobriety. Would likely benefit from outpatient substance use treatment, but will not be able to make this until we know when and where he will be discharged. We thank you for allowing us to participate in this man's care. [facility] CENTERBrandi
[2016-07-21 14:30] VITALS: BP 135/78; PULSE 59
[2016-07-21] MEDS ORDERED: POTASSIUM CHLORIDE 20 MEQ TABCR PO ONE (15:45)
[2016-07-21] MEDS ORDERED: OPTIRAY 320 IV PRN (15:45)
[2016-07-21 16:00] VITALS: BP 117/71; PULSE 75; TEMP 36.8; O2SAT 94
--- NOTE | 2016-07-21 16:54 | Progress Note ---
Internal Med Progress Note Date of Service: Jul 21, 2016. Provider Documentation: SUBJECTIVE: complains of pain in his left shoulder no nausea eating ok no nausea no sob afebrile OBJECTIVE: Vital Signs-as noted below Exam: General-. alert and awake and oriented ENT-normal hearing Neck-no neck masses Lungs-cta b/l no wheezing or crackles Heart-s1 and s2 heard regular , no murmurs Abdomen-soft bowel sounds present no distension Extremities-no pedal edema no erythema Neuro-alert and awake oriented moves extremities Lab data as noted below. ASSESSMENT & PLAN: This is a 50-year-old male, who lives in a homeless fdc with a history of alcoholism, smoking and hypertension by chart history; presenting with left-sided rib/chest pains after a fall .Had left sided rib fractures and possible hemothorax. Was septic from possible pneumonia and lower extremity infection? seen by ID and on iv abx.Went in to severe alcohol withdrawal and was s/p intubation and was on Precedex drip and Diprivan drip. s/p left sided chest tub. cultures no growth so far.significant electrolyte abnormalities. s/p extubation and transferred to tele. But still confused and somewhat shaky. Requiring 6lts of oxygen. Then patient again became tachycardic, tachypneic and hypoxic and was transferred again to ICU on soft metals hand engraver and was placed on mask. Patient was thought to be withdrawing from pain meds and pain management was consulted and was placed on pain meds and his encephalopathy improved.Continued to drain from chest tube.CT surgery discontinued chest tube today. Id recommends to complete 14 days of iv Zosyn(last dose 07/20/16). Currently resting comfortably and tolerating oral diet. Transfer to medical floor today.Psychiatry evaluation for alcoholism and depression? and appreciate inputs.Question of PE on recent cta chest and on iv heparin. Will repeat cta chest today. Pt/OT. Alcohol withdrawal patient was not much responding to gabapentin protocol, iv Ativan and Librium transferred to icu and s/p intubation and Precedex drip and Diprivan s/p extubation 07/10/16 and transferred to tele currently only on iv Ativan prn and last dose was given on 07/18/16 stable Sepsis possible pneumonia superficial skin 'gangrene of the foot? deep tissue injury? as per wound care on iv fluids on vanco and Zosyn gm positive bacillin in one bottle of blood culture- corynebacterium mostly contaminant ID on board. to continue same abx for now cultures no growth so far stopped abx Left-sided chest pain, secondary to acute left rib fractures; 4th to 7th ribs as well as left clavicle fracture secondary to accidental fall. pain control appreciate ortho input pt/ot. hemothorax consulted pulmonary s/p left sided chest tube by critical care - so far no growth in pleural fluid chest tube removed on 07/19/[address] surgery. small pneumothorax on xray post chest tube removal and repeat cxr today 44mm apical pneumothorax plan for repeat cxr in am Hypoxia,.s/p intubation and extubation from pleural effusions sedation pneumonia/ f/u chest US-170ml on left side currently stable on 2lts via nasal canula. Questionable PE on iv heparin will f/u repeat ct scan today Hypertension history. iv Lopressor prn on clonidine prn may need medications on discharge.currently hypotensive Hyponatremia of 129 , likely secondary to dehydration.resolved. significant electrolyte abnormalities hypokalemia and hypophosphatemia and hypomagnesemia will replace will closely f/u labs Deep venous thrombosis prophylaxis: SCDs for now. DISPOSITION To be determined pt/ot social service for d/c planning Vital Signs: Date Time Temp Pulse Resp B/P Pulse Ox O2 Delivery O2 Flow Rate FiO2 07/21/16 16:05 Room Air 07/21/16 14:30 59 135/78 07/21/16 08:03 36.9 70 20 146/82 97 Nasal Cannula 2.0 07/21/16 08:00 Nasal Cannula 2.0 07/21/16 03:00 36.4 80 20 152/71 94 Nasal Cannula 2.0 07/20/16 23:05 Room Air 07/20/16 22:50 36.7 81 20 155/76 91 Room Air Lab Results: Results Past 24 Hours Test 07/21/16 06:19 07/21/16 06:51 Range/Units White Blood Count 10.57 4.8-10.8 K/uL Red Blood Count 3.19 4.7-6.1 M/uL Hemoglobin 10.3 14.0-18.0 g/dL Hematocrit 30.2 42-52 % Mean Corpuscular Volume 94.7 80-100 fL Mean Corpuscular Hemoglobin 32.3 25-34 pg Mean Corpuscular Hemoglobin Concent 34.1 32-36 g/dl RDW Standard Deviation 45.6 36.4-46.3 fL RDW Coefficient of Variation 13.1 11.5-14.5 % Platelet Count 785 130-400 K/uL Mean Platelet Volume 8.9 7.4-10.4 fL Activated Partial Thromboplast Time 55.7 21.0-31.0 SECONDS Partial Thromboplastin Ratio 2.1
--- NOTE | 2016-07-21 18:47 | DIAGNOSTIC IMAGING REPORT ---
CT ANGIOGRAM OF THE CHEST CLINICAL HISTORY: Pleural effusion. Chest pain. Shortness of breath. Pneumothorax. Possible acute pulmonary embolism. COMPARISON STUDY: CT scan the chest dated 08-02 TECHNIQUE: Following the IV administration of 85 mL of Optiray-320, CT angiogram of the thorax was performed from the thoracic inlet to the lung bases utilizing the pulmonary embolus protocol. Images are reviewed in the axial, sagittal, and coronal planes. IV contrast was administered without complication. MIP imaging was performed. CT DOSE: 367.33 mGy.cm FINDINGS: No pathologically enlarged axillary mediastinal or hilar lymph nodes were visualized. There is mild ectasia of the ascending thoracic aorta (43 mm). Evaluation for pulmonary emboli is limited due to respiratory motion artifact. No central emboli are visualized. There are small moderate bilateral pleural effusions. There is dense bilateral lower lobe atelectasis/consolidation. There are wispy airspace opacities within the right apex. These remain similar to the prior study. There is a small left-sided pneumothorax. There are multiple left-sided rib fractures. IMPRESSION: 1. Technically limited study secondary to respiratory motion artifact. 2. No central pulmonary emboli identified 3. Mild ectasia of the ascending thoracic aorta 4. Small left pneumothorax 5. Small to moderate bilateral pleural effusions with interval increase in the size of the left pleural effusion 6. Progressive dense lower lobe atelectasis/consolidation 8. Stable groundglass wispy airspace opacities within the right apex 9. Multiple left-sided rib fractures, manubrial fracture, and distal left clavicular fracture as visualized on the scanogram Electronically signed by: Alejandro Lucas M.D. 07/21/2016 6:45 PM Dictated Date/Time: 07/21/2016 6:36 PM
[2016-07-21] MEDS ORDERED: BOOST PLUS VANILLA PO SCH ×2 (21:00)
[2016-07-22 00:14] VITALS: BP 135/78; PULSE 61; TEMP 36.8; O2SAT 96
[2016-07-22] MEDS: OXYCODONE/ACETAMINOPHEN 7.5-325 TAB PO SCH ×4 (03:20→20:32)
[2016-07-22 07:00] LABS: PARTIAL THROMBOPLASTIN RATIO 1.7
[2016-07-22 07:25] VITALS: BP 159/81; PULSE 64; TEMP 37.3; O2SAT 95
--- NOTE | 2016-07-22 08:19 | DIAGNOSTIC IMAGING REPORT ---
SINGLE VIEW CHEST CLINICAL HISTORY: Pleural effusion and pneumothorax FINDINGS: An AP, portable, upright chest radiograph is compared to study dated 07/20/2016 and correlated with chest CT dated 07/21/2016. The examination is degraded by portable technique and patient rotation. The heart is top normal for projection. The pulmonary vasculature is noncongested. There are layering pleural effusions and bibasilar consolidation. A trace left apical pneumothorax persists. There are numerous left-sided rib fractures. IMPRESSION: 1. A trace left apical pneumothorax is unchanged from yesterday. Left-sided rib fractures are again noted. 2. Layering pleural effusions and bibasilar consolidation, also unchanged. Electronically signed by: Froy Lau M.D. 07/22/2016 8:17 AM Dictated Date/Time: 07/22/2016 8:14 AM
[2016-07-22] MEDS: PANTOprazole SOD 40 MG TAB PO SCH (08:21)
[2016-07-22] MEDS: AMLODIPINE BESYLATE 5 MG TAB PO SCH (08:22)
[2016-07-22] MEDS: NICOTINE 14 MG/24 HR TDSY TD SCH (08:22)
[2016-07-22] MEDS: ASCORBIC ACID 500 MG TAB PO SCH (08:22)
[2016-07-22] MEDS: THIAMINE HCL 100 MG TAB PO SCH (08:22)
[2016-07-22] MEDS: HEPARIN 25,000 UNIT/500ML D5W 500 ML IV PRN (08:44)
[2016-07-22] MEDS ORDERED: HEPARIN IV BOLUS 2,000 UNIT in SYRINGE 0 ML IV ONE (08:45)
--- NOTE | 2016-07-22 12:08 | SURGERY PROGRESS NOTE ---
DATE: 07/22/2016 Mr. Chang was evaluated today. I think he looks rather good. He is on room air with 95% saturations. I think his x-ray looks better today. He does not appear to be accumulating much fluid. There does not appear to be any pulmonary emboli on a CT scan done yesterday. The patient has a small pneumothorax and has some pleural fluid that I would not drain this at this point. I think this will resorb on its own if his protein stores and his ambulatory status improved. I would check another chest x-ray in a couple of days. I do have one concern about Mr. Chang. The fact of the matter is his left lower lobe is consolidated and collapsed. He may have some stenosis of his left lower lobe bronchus. I do not see evidence of occlusion; however, I think this man warrants a bronchoscopy. I am going to perform this on Monday if he is still in the hospital. We will send off cultures at that time, but it is unclear to me why his lung has not expanded. MTDBrandi
[2016-07-22 15:08] VITALS: BP 136/84; PULSE 83; TEMP 36.8; O2SAT 98
[2016-07-22 15:35] LABS: PARTIAL THROMBOPLASTIN RATIO 2.5
[2016-07-22 16:00] VITALS: O2SAT 98
--- NOTE | 2016-07-22 17:54 | Progress Note ---
Internal Med Progress Note Date of Service: Jul 22, 2016. Provider Documentation: SUBJECTIVE: has mild pain in left shoulder no nausea no cough resting comfortably OBJECTIVE: Vital Signs-as noted below Exam: General-. alert and awake and oriented ENT-normal hearing Neck-no neck masses Lungs-cta b/l no wheezing or crackles Heart-s1 and s2 heard regular , no murmurs Abdomen-soft bowel sounds present no distension Extremities-no pedal edema no erythema Neuro-alert and awake oriented moves extremities Lab data as noted below. ASSESSMENT & PLAN: This is a 50-year-old male, who [facility] with a history of alcoholism, smoking and hypertension by chart history; presenting with left-sided rib/chest pains after a fall .Had left sided rib fractures and possible hemothorax. Was septic from possible pneumonia and lower extremity infection? seen by ID and on iv abx.Went in to severe alcohol withdrawal and was s/p intubation and was on Precedex drip and Diprivan drip. s/p left sided chest tub. cultures no growth so far.significant electrolyte abnormalities. s/p extubation and transferred to tele. But still confused and somewhat shaky. Requiring 6lts of oxygen. 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 Patient was thought to be withdrawing from pain meds and pain management was consulted and was placed on pain meds and his encephalopathy improved.Continued to drain from chest tube.CT surgery discontinued chest tube today. Id recommends to complete 14 days of iv Zosyn(last dose 07/20/16). Currently resting comfortably and tolerating oral diet. Transfer to medical floor today.Psychiatry evaluation for alcoholism and depression? and appreciate inputs.Question of PE on recent cta chest and on iv heparin.Repeat cta chest 07/21/16 no definitive PE found. Discussed with radiology - question of peripheral PE on first Ct scan also of very low probability.Will stop IV heparin. CT suregry plans fopr bronchoscopy on Monday for left lower collapsed lung. Pt/OT. Hospital course so far: Alcohol withdrawal patient was not much responding to gabapentin protocol, iv Ativan and Librium transferred to icu and s/p intubation and Precedex drip and Diprivan s/p extubation 12/25/16 and transferred to tele currently only on iv Ativan prn and last dose was given on 07/18/16 stable Sepsis possible pneumonia superficial skin 'gangrene of the foot? deep tissue injury? as per wound care on iv fluids on vanco and Zosyn gm positive bacillin in one bottle of blood culture- corynebacterium mostly contaminant ID on board. to continue same abx for now cultures no growth so far stopped abx Left-sided chest pain, secondary to acute left rib fractures; 4th to 7th ribs as well as left clavicle fracture secondary to accidental fall. pain control appreciate ortho input pt/ot. hemothorax consulted pulmonary s/p left sided chest tube by critical care - so far no growth in pleural fluid chest tube removed on 07/19/[address] surgery. small pneumothorax on xray post chest tube removal and repeat cxr today 44mm apical pneumothorax repeat cxr minimal pneumothorax.plan for repeat cxr in 2-3 days Hypoxia,.s/p intubation and extubation from pleural effusions sedation pneumonia/ f/u chest US-170ml on left side currently stable on 2lts via nasal canula. Questionable PE on iv heparin repeat ct scan 07/21/16 unremarkable. Stopping iv heparin Hypertension history. iv Lopressor prn on clonidine prn may need medications on discharge.currently hypotensive Hyponatremia of 129 , likely secondary to dehydration.resolved. significant electrolyte abnormalities hypokalemia and hypophosphatemia and hypomagnesemia will replace will closely f/u labs Deep venous thrombosis prophylaxis: SCDs for now. DISPOSITION To be determined pt/ot social service for d/c planning Vital Signs: Date Time Temp Pulse Resp B/P Pulse Ox O2 Delivery O2 Flow Rate FiO2 07/22/16 15:08 36.8 83 18 136/84 98 Room Air 07/22/16 08:00 Room Air 07/22/16 07:25 37.3 64 18 159/81 95 Room Air 07/22/16 00:14 36.8 61 20 135/78 96 Room Air 07/21/16 23:56 Nasal Cannula 2.0 Lab Results: Results Past 24 Hours Test 07/22/16 06:05 07/22/16 14:49 Range/Units Activated Partial Thromboplast Time 44.8 64.1 21.0-31.0 SECONDS Partial Thromboplastin Ratio 1.7 2.5
[2016-07-22 20:29] VITALS: BP 130/77; PULSE 74
[2016-07-22] MEDS: HEPARIN SOD 5000 UNIT/0.5 ML CARP SQ SCH (21:55)
[2016-07-23 01:06] VITALS: BP 144/74; PULSE 61; TEMP 36.9; O2SAT 95
[2016-07-23] MEDS: OXYCODONE/ACETAMINOPHEN 7.5-325 TAB PO SCH ×4 (03:00→21:10)
[2016-07-23] MEDS: ACETAMINOPHEN 325 MG TAB PO PRN (06:01)
[2016-07-23] MEDS: HEPARIN SOD 5000 UNIT/0.5 ML CARP SQ SCH ×3 (06:02→21:14)
[2016-07-23 06:11] LABS: HEMATOCRIT 31.9 % (42-52); MEAN CELL VOLUME 94.7 fL (80-100); MEAN CORPUSCULAR HGB CONC 33.9 g/dl (32-36); MEAN PLATELET VOLUME 8.6 fL (7.4-10.4); PLATELET COUNT 792 K/uL (130-400); RED BLOOD COUNT 3.37 M/uL (4.7-6.1); WHITE BLOOD COUNT 12.36 K/uL (4.8-10.8)
[2016-07-23 06:24] LABS: PARTIAL THROMBOPLASTIN RATIO 1.1
[2016-07-23 07:42] VITALS: BP 133/80; PULSE 74; TEMP 36.8; O2SAT 97
[2016-07-23] MEDS: AMLODIPINE BESYLATE 5 MG TAB PO SCH (09:06)
[2016-07-23] MEDS: PANTOprazole SOD 40 MG TAB PO SCH (09:06)
[2016-07-23] MEDS: THIAMINE HCL 100 MG TAB PO SCH (09:06)
[2016-07-23] MEDS: NICOTINE 14 MG/24 HR TDSY TD SCH (09:08)
[2016-07-23] MEDS: ASCORBIC ACID 500 MG TAB PO SCH (09:08)
--- NOTE | 2016-07-23 09:09 | DIAGNOSTIC IMAGING REPORT ---
LEFT SHOULDER MIN 2 VIEWS ROUTINE CLINICAL HISTORY: Left shoulder pain. COMPARISON: Left shoulder radiograph July 05, 2016. FINDINGS: A small left apical pneumothorax appears unchanged. Interstitial thickening and hazy left lung opacity is noted. Numerous left-sided rib fractures are again noted. A oblique mildly displaced fracture of the distal left clavicle is again noted. Alignment of the left acromioclavicular and glenohumeral joints is anatomic. IMPRESSION: 1. No change in alignment of the mildly displaced distal left clavicular fracture. 2. Demonstration of numerous left-sided rib fractures, a trace left pleural effusion and tiny left apical pneumothorax. Electronically signed by: Kalin Roberts M.D. 07/23/2016 9:07 AM Dictated Date/Time: 07/23/2016 9:04 AM
--- NOTE | 2016-07-23 10:39 | SURGERY PROGRESS NOTE ---
DATE: 07/23/2016 DATE: 07/23/2016. Mr. Chang was seen today on 07/23/2016. He is complaining of left shoulder pain and indeed he has a distal left clavicular fracture from his fall. He also has some ecchymosis in this area and is asking for pain meds. He is on room air with 95% sat. His lungs do not sound bad. In reviewing the x-rays of his clavicle and ribs today it could be seen that he has good expansion of his lung. I do not see much in the way of fluid. I discussed bronchoscopy with Mr. Chang today. I think he understands. I am going to take him down to the bronchoscopy suite on 07/25/2016 and do a diagnostic bronchoscopy to assess his left lower lobe bronchus.
[2016-07-23 13:31] VITALS: BP 118/71; PULSE 87
[2016-07-23 15:55] VITALS: BP 125/71; PULSE 69; TEMP 36.8; O2SAT 93
--- NOTE | 2016-07-23 18:14 | Progress Note ---
Internal Med Progress Note Date of Service: Jul 23, 2016. Provider Documentation: SUBJECTIVE: has pain in left shoulder eating ok denies sob or cough afebrile OBJECTIVE: Vital Signs-as noted below Exam: General-. alert and awake and oriented ENT-normal hearing Neck-no neck masses Lungs-cta b/l no wheezing or crackles Heart-s1 and s2 heard regular , no murmurs Abdomen-soft bowel sounds present no distension Extremities-no pedal edema no erythema Neuro-alert and awake oriented moves extremities Lab data as noted below. ASSESSMENT & PLAN: This is a 50-year-old male, who lives in a homeless detention with a history of alcoholism, smoking and hypertension by chart history; presenting with left-sided rib/chest pains after a fall .Had left sided rib fractures and possible hemothorax. Was septic from possible pneumonia and lower extremity infection? seen by ID and on iv abx.Went in to severe alcohol withdrawal and was s/p intubation and was on Precedex drip and Diprivan drip. s/p left sided chest tub. cultures no growth so far.significant electrolyte abnormalities. s/p extubation and transferred to tele. But still confused and somewhat shaky. Requiring 6lts of oxygen. Then patient again became tachycardic, tachypneic and hypoxic and was transferred again to ICU on speech therapist early intervention and was placed on mask. Patient was thought to be withdrawing from pain meds and pain management was consulted and was placed on pain meds and his encephalopathy improved.Continued to drain from chest tube.CT surgery discontinued chest tube today. Id recommends to complete 14 days of iv Zosyn(last dose 07/20/16). Currently resting comfortably and tolerating oral diet. Transfer to medical floor today.Psychiatry evaluation for alcoholism and depression? and appreciate inputs.Question of PE on recent cta chest and on iv heparin.Repeat cta chest 07/21/16 no definitive PE found. Discussed with radiology - question of peripheral PE on first Ct scan also of very low probability.Will stop IV heparin. CT surgery plans fopr bronchoscopy on Monday for left lower collapsed lung.Stable.Continue Pt/OT. Hospital course so far: Alcohol withdrawal patient was not much responding to gabapentin protocol, iv Ativan and Librium transferred to icu and s/p intubation and Precedex drip and Diprivan s/p extubation 07/10/16 and transferred to tele currently only on iv Ativan prn and last dose was given on 07/18/16 stable Sepsis possible pneumonia superficial skin 'gangrene of the foot? deep tissue injury? as per wound care on iv fluids on vanco and Zosyn gm positive bacillin in one bottle of blood culture- corynebacterium mostly contaminant ID on board. to continue same abx for now cultures no growth so far stopped abx Left-sided chest pain, secondary to acute left rib fractures; 4th to 7th ribs as well as left clavicle fracture secondary to accidental fall. pain control appreciate ortho input pt/ot. hemothorax consulted pulmonary s/p left sided chest tube by critical care - so far no growth in pleural fluid chest tube removed on 07/19/[address] surgery. small pneumothorax on xray post chest tube removal and repeat cxr today 44mm apical pneumothorax repeat cxr minimal pneumothorax.plan for repeat cxr in 2-3 days Hypoxia,.s/p intubation and extubation from pleural effusions sedation pneumonia/ f/u chest US-170ml on left side currently stable on 2lts via nasal canula. Questionable PE on iv heparin repeat ct scan 07/21/16 unremarkable. Stopped iv heparin Hypertension history. iv Lopressor prn on clonidine prn currently on hydralazine 25mg tid and amlodipine 10mg daily Hyponatremia of 129 , likely secondary to dehydration.resolved. significant electrolyte abnormalities hypokalemia and hypophosphatemia and hypomagnesemia will replace will closely f/u labs Deep venous thrombosis prophylaxis: SCDs for now. DISPOSITION To be determined pt/ot social service for d/c planning Vital Signs: Date Time Temp Pulse Resp B/P Pulse Ox O2 Delivery O2 Flow Rate FiO2 07/23/16 15:55 36.8 69 18 125/71 93 Room Air 07/23/16 13:31 87 118/71 07/23/16 07:42 36.8 74 18 133/80 97 Room Air 07/23/16 07:34 Room Air 07/23/16 01:06 36.9 61 20 144/74 95 Room Air 07/23/16 00:00 Room Air 07/22/16 20:29 74 130/77 Lab Results: Results Past 24 Hours Test 07/23/16 05:47 07/23/16 07:45 Range/Units White Blood Count 12.36 4.8-10.8 K/uL Red Blood Count 3.37 4.7-6.1 M/uL Hemoglobin 10.8 14.0-18.0 g/dL Hematocrit 31.9 42-52 % Mean Corpuscular Volume 94.7 80-100 fL Mean Corpuscular Hemoglobin 32.0 25-34 pg Mean Corpuscular Hemoglobin Concent 33.9 32-36 g/dl RDW Standard Deviation 46.0 36.4-46.3 fL RDW Coefficient of Variation 13.3 11.5-14.5 % Platelet Count 792 130-400 K/uL Mean Platelet Volume 8.6 7.4-10.4 fL Activated Partial Thromboplast Time 28.0 21.0-31.0 SECONDS Partial Thromboplastin Ratio 1.1 Troponin I < 0.015 0-0.045 ng/ml
[2016-07-23 21:08] VITALS: BP 135/85; PULSE 71
[2016-07-23 23:15] VITALS: BP 137/66; PULSE 69; TEMP 36.9; O2SAT 94
[2016-07-24] MEDS: OXYCODONE/ACETAMINOPHEN 7.5-325 TAB PO SCH ×4 (03:22→20:26)
[2016-07-24] MEDS: HEPARIN SOD 5000 UNIT/0.5 ML CARP SQ SCH ×3 (06:05→20:26)
[2016-07-24 07:01] VITALS: BP 155/78; PULSE 60; TEMP 36.6; O2SAT 96
[2016-07-24 07:05] LABS: BASO % 0.6 %; BASO ABS # 0.08 K/uL (0-0.2); COMPLETE YES; EOS % 1.5 %; HEMATOCRIT 30.5 % (42-52); LYMPH % 15.2 %; LYMPH ABS # 1.93 K/uL (1.2-3.4); MEAN CELL VOLUME 94.4 fL (80-100); MEAN CORPUSCULAR HEMOGLOBIN 31.9 pg (25-34); MEAN CORPUSCULAR HGB CONC 33.8 g/dl (32-36); MEAN PLATELET VOLUME 8.7 fL (7.4-10.4); NEUT % 69.7 %; PLATELET COUNT 741 K/uL (130-400); RED BLOOD COUNT 3.23 M/uL (4.7-6.1); WHITE BLOOD COUNT 12.71 K/uL (4.8-10.8)
[2016-07-24 07:07] LABS: PARTIAL THROMBOPLASTIN RATIO 1.1
[2016-07-24 07:31] LABS: BUN/CREATININE RATIO 9.5 (10-20); CREATININE 0.56 mg/dl (0.60-1.40); MAGNESIUM 1.8 mg/dl (1.8-2.4); POTASSIUM 3.5 mmol/L (3.5-5.1)
[2016-07-24 07:32] LABS: PHOSPHORUS 3.2 mg/dl (2.5-4.9)
[2016-07-24] MEDS: THIAMINE HCL 100 MG TAB PO SCH (09:24)
[2016-07-24] MEDS: AMLODIPINE BESYLATE 5 MG TAB PO SCH (09:24)
[2016-07-24] MEDS: NICOTINE 14 MG/24 HR TDSY TD SCH (09:27)
[2016-07-24] MEDS: ASCORBIC ACID 500 MG TAB PO SCH (09:29)
[2016-07-24] MEDS: PANTOprazole SOD 40 MG TAB PO SCH (09:29)
[2016-07-24 13:43] VITALS: BP 130/80; PULSE 80
[2016-07-24 16:00] VITALS: O2SAT 96
[2016-07-24 16:34] VITALS: BP 138/78; PULSE 72; TEMP 37.1; O2SAT 95
--- NOTE | 2016-07-24 17:36 | Progress Note ---
Internal Med Progress Note Date of Service: Jul 24, 2016. Provider Documentation: SUBJECTIVE: resting comfortably no nausea still has rib pain 'no sob or cough OBJECTIVE: Vital Signs-as noted below Exam: General-. alert and awake and oriented ENT-normal hearing Neck-no neck masses Lungs-cta b/l no wheezing or crackles Heart-s1 and s2 heard regular , no murmurs Abdomen-soft bowel sounds present no distension Extremities-no pedal edema no erythema Neuro-alert and awake oriented moves extremities Lab data as noted below. ASSESSMENT & PLAN: This is a 50-year-old male, who lives in a homeless [facility] with a history of alcoholism, smoking and hypertension by chart history; presenting with left-sided rib/chest pains after a fall .Had left sided rib fractures and possible hemothorax. Was septic from possible pneumonia and lower extremity infection? seen by ID and on iv abx.Went in to severe alcohol withdrawal and was s/p intubation and was on Precedex drip and Diprivan drip. s/p left sided chest tub. cultures no growth so far.significant electrolyte abnormalities. s/p extubation and transferred to tele. But still confused and somewhat shaky. Requiring 6lts of oxygen. Then patient again became tachycardic, tachypneic and hypoxic and was transferred again to ICU on lead slot technician and was placed on mask. Patient was thought to be withdrawing from pain meds and pain management was consulted and was placed on pain meds and his encephalopathy improved.Continued to drain from chest tube.CT surgery discontinued chest tube today. Id recommends to complete 14 days of iv Zosyn(last dose 07/20/16). Currently resting comfortably and tolerating oral diet. Transfer to medical floor today.Psychiatry evaluation for alcoholism and depression? and appreciate inputs.Question of PE on recent cta chest and on iv heparin.Repeat cta chest 07/21/16 no definitive PE found. Discussed with radiology - question of peripheral PE on first Ct scan also of very low probability.Will stop IV heparin. CT surgery plans for bronchoscopy on Monday/Monday for left lower collapsed lung.Stable.Continue Pt/OT.Stable.Plan for discharge soon. Hospital course so far: Alcohol withdrawal patient was not much responding to gabapentin protocol, iv Ativan and Librium transferred to icu and s/p intubation and Precedex drip and Diprivan s/p extubation 12/25/16 and transferred to [facility] currently only on iv Ativan prn and last dose was given on 07/18/16 stable Sepsis possible pneumonia superficial skin 'gangrene of the foot? deep tissue injury? as per wound care on iv fluids on vanco and Zosyn gm positive bacillin in one bottle of blood culture- corynebacterium mostly contaminant ID on board. to continue same abx for now cultures no growth so far stopped abx stable. Left-sided chest pain, secondary to acute left rib fractures; 4th to 7th ribs as well as left clavicle fracture secondary to accidental fall. pain control appreciate ortho input pt/ot. hemothorax consulted pulmonary s/p left sided chest tube by critical care - so far no growth in pleural fluid chest tube removed on 07/19/[address] surgery. small pneumothorax on xray post chest tube removal and repeat cxr today 44mm apical pneumothorax repeat cxr minimal pneumothorax.plan for repeat cxr in am Hypoxia,.s/p intubation and extubation from pleural effusions sedation pneumonia/ f/u chest US-170ml on left side currently stable on 2lts via nasal canula. Questionable PE on iv heparin repeat ct scan 07/21/16 unremarkable. Stopped iv heparin Hypertension history. iv Lopressor prn on clonidine prn currently on hydralazine 25mg tid and amlodipine 10mg daily will monitor Hyponatremia of 129 , likely secondary to dehydration.resolved. significant electrolyte abnormalities hypokalemia and hypophosphatemia and hypomagnesemia will replace will closely f/u labs Deep venous thrombosis prophylaxis: SCDs for now. DISPOSITION To be determined pt/ot social service for d/c planning Vital Signs: Date Time Temp Pulse Resp B/P Pulse Ox O2 Delivery O2 Flow Rate FiO2 07/24/16 16:34 37.1 72 20 138/78 95 Room Air 07/24/16 16:00 96 Room Air 07/24/16 13:43 80 130/80 07/24/16 07:42 Room Air 07/24/16 07:01 36.6 60 16 155/78 96 Room Air 07/24/16 00:00 Room Air 07/23/16 23:15 36.9 69 20 137/66 94 Room Air 07/23/16 21:08 71 135/85 Lab Results: Results Past 24 Hours Test 07/24/16 06:19 Range/Units White Blood Count 12.71 4.8-10.8 K/uL Red Blood Count 3.23 4.7-6.1 M/uL Hemoglobin 10.3 14.0-18.0 g/dL Hematocrit 30.5 42-52 % Mean Corpuscular Volume 94.4 80-100 fL Mean Corpuscular Hemoglobin 31.9 25-34 pg Mean Corpuscular Hemoglobin Concent 33.8 32-36 g/dl Platelet Count 741 130-400 K/uL Mean Platelet Volume 8.7 7.4-10.4 fL Neutrophils (%) (Auto) 69.7 % Lymphocytes (%) (Auto) 15.2 % Monocytes (%) (Auto) 12.0 % Eosinophils (%) (Auto) 1.5 % Basophils (%) (Auto) 0.6 % Neutrophils # (Auto) 8.86 1.4-6.5 K/uL Lymphocytes # (Auto) 1.93 1.2-3.4 K/uL Monocytes # (Auto) 1.52 0.11-0.59 K/uL Eosinophils # (Auto) 0.19 0-0.5 K/uL Basophils # (Auto) 0.08 0-0.2 K/uL RDW Standard Deviation 46.0 36.4-46.3 fL RDW Coefficient of Variation 13.5 11.5-14.5 % Immature Granulocyte % (Auto) 1.0 % Immature Granulocyte # (Auto) 0.13 0.00-0.02 K/uL Activated Partial Thromboplast Time 29.4 21.0-31.0 SECONDS Partial Thromboplastin Ratio 1.1 Sodium Level 140 136-145 mmol/L Potassium Level 3.5 3.5-5.1 mmol/L Chloride Level 105 98-107 mmol/L Carbon Dioxide Level 25 21-32 mmol/L Anion Gap 10.0 3-11 mmol/L Blood Urea Nitrogen 5 7-18 mg/dl Creatinine 0.56 0.60-1.40 mg/dl Est Creatinine Clear Calc Drug Dose 121.8 ml/min Estimated GFR () 138.8 Estimated GFR (Non- 119.8 BUN/Creatinine Ratio 9.5 10-20 Random Glucose 83 70-99 mg/dl Calcium Level 8.0 8.5-10.1 mg/dl Phosphorus Level 3.2 2.5-4.9 mg/dl Magnesium Level 1.8 1.8-2.4 mg/dl
--- NOTE | 2016-07-24 18:26 | SURGERY PROGRESS NOTE ---
DATE: 07/24/2016 Mr. Chang and I had a long discussion today. He seems quite aware of what is going on. We discussed a bronchoscopy, which I think is indicated due to collapse of his left lower lobe. I simply do not have a good explanation for this. I will add this on tomorrow afternoon in the bronchoscopy suite. LUIS EDUARDO
[2016-07-24 23:55] VITALS: BP 130/66; PULSE 69; TEMP 36.9; O2SAT 95
[2016-07-25] VITALS (19 sets, daily range): BP systolic 108–158; BP diastolic 66–88; PULSE 64–110; TEMP 36.1–37; O2SAT 93–100
[2016-07-25] MEDS: OXYCODONE/ACETAMINOPHEN 7.5-325 TAB PO SCH ×4 (02:49→21:23)
[2016-07-25] MEDS: HEPARIN SOD 5000 UNIT/0.5 ML CARP SQ SCH ×3 (05:28→21:25)
[2016-07-25 07:05] LABS: BASO % 0.6 %; BASO ABS # 0.08 K/uL (0-0.2); COMPLETE YES; EOS % 2.1 %; HEMATOCRIT 31.3 % (42-52); IG% 1.5 %; LYMPH % 16.3 %; LYMPH ABS # 2.13 K/uL (1.2-3.4); MEAN CELL VOLUME 95.1 fL (80-100); MEAN CORPUSCULAR HEMOGLOBIN 32.2 pg (25-34); MEAN CORPUSCULAR HGB CONC 33.9 g/dl (32-36); MEAN PLATELET VOLUME 8.4 fL (7.4-10.4); MONO % 12.2 %; NEUT % 67.3 %; PLATELET COUNT 702 K/uL (130-400); RED BLOOD COUNT 3.29 M/uL (4.7-6.1); WHITE BLOOD COUNT 13.07 K/uL (4.8-10.8)
[2016-07-25 07:15] LABS: PARTIAL THROMBOPLASTIN RATIO 1.1
[2016-07-25 07:30] LABS: BUN/CREATININE RATIO 9.9 (10-20); CALCIUM 8.2 mg/dl (8.5-10.1); CREATININE 0.67 mg/dl (0.60-1.40); MAGNESIUM 1.8 mg/dl (1.8-2.4); POTASSIUM 3.7 mmol/L (3.5-5.1)
--- NOTE | 2016-07-25 07:44 | DIAGNOSTIC IMAGING REPORT ---
CHEST ONE VIEW PORTABLE CLINICAL HISTORY: apical pneumothorax COMPARISON STUDY: 07/22/2016 FINDINGS: The cardiac and mediastinal contours remain stable. There are multiple left-sided rib fractures. There is a left clavicular fracture. There are bilateral pleural effusions with associated bibasal airspace opacities. There is a 4 mm left apical pneumothorax.[ IMPRESSION: Persistent tiny 4 mm left apical pneumothorax. Multiple left-sided rib fractures and left clavicular fracture. Bilateral pleural effusions with bibasal airspace opacities similar to the prior study Electronically signed by: Alejandro Lucas M.D. 07/25/2016 7:42 AM Dictated Date/Time: 07/25/2016 7:41 AM
[2016-07-25] MEDS ORDERED: FENTANYL CITRATE INJ 50 MCG/1 ML 2 ML VIAL IV ONE (07:55)
[2016-07-25] MEDS ORDERED: LIDOCAINE HCL 2% LOCAL 50ML VIAL INFIL ONE (07:55)
[2016-07-25] MEDS ORDERED: LIDOCAINE 4% INH SOLN 4 ML BTL ONE (07:55)
[2016-07-25] MEDS ORDERED: MIDAZOLAM HCL 5 MG/ML 1 ML VIAL IV ONE (07:55)
[2016-07-25] MEDS: AMLODIPINE BESYLATE 5 MG TAB PO SCH (08:45)
[2016-07-25] MEDS: THIAMINE HCL 100 MG TAB PO SCH (08:45)
[2016-07-25] MEDS: PANTOprazole SOD 40 MG TAB PO SCH (08:46)
[2016-07-25] MEDS: ASCORBIC ACID 500 MG TAB PO SCH (08:46)
[2016-07-25] MEDS: NICOTINE 14 MG/24 HR TDSY TD SCH (09:00)
[2016-07-25] MEDS ORDERED: FENTANYL CITRATE INJ 50 MCG/1 ML 2 ML VIAL IV SCH (14:30)
[2016-07-25] MEDS ORDERED: MIDAZOLAM HCL 1 MG/ML 2ML VIAL IV SCH (14:30)
[2016-07-25] MEDS ORDERED: NURSING VERBAL MED ORDER ONE (14:30)
--- NOTE | 2016-07-25 14:56 | DIAGNOSTIC IMAGING REPORT ---
CHEST ONE VIEW PORTABLE CLINICAL HISTORY: Post bronchoscopy study COMPARISON STUDY: 07/25/2016 FINDINGS: The cardiac and mediastinal contours remain stable. There are persistent bilateral pleural effusions with associated bibasal airspace opacities. There are multiple left-sided rib fractures. There is a tiny left apical pneumothorax.[ IMPRESSION: No change from the preceding study. Persistent tiny left apical pneumothorax. Multiple left-sided rib fractures. Bilateral pleural effusions with bibasal airspace opacities. Electronically signed by: Alejandro Lucas M.D. 07/25/2016 2:54 PM Dictated Date/Time: 07/25/2016 2:53 PM
--- NOTE | 2016-07-25 15:14 | OPERATIVE REPORT ---
DATE OF OPERATION: 07/25/2016 PREOPERATIVE DIAGNOSIS: Collapsed/consolidation left lower lobe. POSTOPERATIVE DIAGNOSIS: Extrinsic compression of smaller airways with inflammation in the left lower lobe bronchi. PROCEDURE: Fiberoptic bronchoscopy with biopsy and with brushings and washings. SURGEON: Dr. Cisneros. ELL TUTOR: David HAM ANESTHESIA: Sedation with fentanyl and Versed and local. INDICATIONS FOR PROCEDURE: This is a 50-year-old male who is an alcohol abuser, who presented after fall with some broken left ribs and a left clavicular fracture and was admitted to the hospital as he had a left hemopneumothorax. A chest tube was placed in the intensive care unit. The patient went through delirium tremens but finally settled down. He has been in the hospital for about 3 weeks. I was asked to see him to manage his chest tube. I removed this. He had a small pneumothorax and a small amount of fluid. However, he had complete collapse of the left lower lobe. I did not see any obvious masses on CT scan and we actually repeated it and then I took him down to the bronchoscopy suite on 07/25/2016 and did a fiberoptic bronchoscopy. He has had extrinsic compression of the airways. I could get through these areas and I did not see any endobronchial abnormalities. We did washings for cytology and microbiology as well as brushings. He tolerated it well. DESCRIPTION OF PROCEDURE: The patient was brought to the bronchoscopy suite in radiology. He was given 4 mg of Versed and 100 mcg of fentanyl. We used Xylocaine gel and a nebulizer and attempted to go to his left naris, but it was easier to go through his right and going through the right naris, I was able to get down with the flexible fiberoptic bronchoscope to the vocal cords. We injected Xylocaine through the scope to wash over the cords and then went through these down into the trachea. I saw no evidence of any airway collapse. I went into the right bronchial tree, went into the right upper lobe, right middle lobe, right lower lobe branches. I saw no evidence of any mucous or foreign bodies or any abnormalities. I then pulled back and went into the left mainstem bronchus and again there were no bronchial abnormalities. In particular, I did not see any stenosis or obstruction in the proximal left lower lobe. The left upper lobe had no mucus and there were no abnormalities noted. The lingular bronchus was also widely patent. Upon going down into the left lower lobe bronchus, there were bifurcations and some of these airways were completely closed. I was easily able to get my bronchoscope through them and I did not see any foreign bodies. There was some white sputum which we suctioned and sent for culture and cytology. I also did washings of both the lower lobe and the basilar segments. These were sent for cytology and microbiology. I then used brushes and I went down into these closed areas without difficulty and made slides and also sent these for culture. It is important to note I saw no endobronchial lesions. I then slowly withdrew the bronchoscope and saw no evidence of bleeding. I then removed this. He tolerated it quite well. I attest to the content of the Intraoperative Record and any orders documented therein. Any exceptions are noted below. LUIS EDUARDO
--- NOTE | 2016-07-25 16:20 | Progress Note ---
Internal Med Progress Note Date of Service: Jul 25, 2016. Provider Documentation: SUBJECTIVE: waiting for bronchoscopy today has his rib pain ambulated with PT today afebrile no sob or cough OBJECTIVE: Vital Signs-as noted below Exam: General-. alert and awake and oriented ENT-normal hearing Neck-no neck masses Lungs-cta b/l no wheezing or crackles Heart-s1 and s2 heard regular , no murmurs Abdomen-soft bowel sounds present no distension Extremities-no pedal edema no erythema Neuro-alert and awake oriented moves extremities Lab data as noted below. ASSESSMENT & PLAN: This is a 50-year-old male, who lives in a homeless [facility] with a history of alcoholism, smoking and hypertension by chart history; presenting with left-sided rib/chest pains after a fall .Had left sided rib fractures and possible hemothorax. Was septic from possible pneumonia and lower extremity infection? seen by ID and was on iv abx.Went in to severe alcohol withdrawal and was s/p intubation and was on Precedex drip and Diprivan drip. s/p left sided chest tube. cultures no growth so far.significant electrolyte abnormalities. s/p extubation . and transferred to tele. But still confused and somewhat shaky. Requiring 6lts of oxygen. Then patient again became tachycardic, tachypneic and hypoxic and was transferred again to ICU on director day care center and was placed on mask. Patient was thought to be withdrawing from pain meds and pain management was consulted and was placed on pain meds and his encephalopathy improved.Continued to drain from chest tube.CT surgery discontinued chest tube . ID recommends to complete 14 days of iv Zosyn( last dose 07/20/16). Currently resting comfortably and tolerating oral diet. Transferd to medical floor.Psychiatry evaluation for alcoholism and depression? and appreciate inputs.Question of PE on recent cta chest and on iv heparin.Repeat cta chest 07/21/16 no definitive PE found. Discussed with radiology - question of peripheral PE on first Ct scan also of very low probability.Will stop IV heparin. CT surgery planned for bronchoscopy today 07/25/16 for left lower collapsed lung-await results and recommendations.Also atrted on blod pressure medications amlodipine and hydralazine during this admission. Pt/ OT.Plan for discharge soon. Hospital course so far: Alcohol withdrawal patient was not much responding to gabapentin protocol, iv Ativan and Librium transferred to icu and s/p intubation and Precedex drip and Diprivan s/p extubation 07/10/16 and transferred to tele currently only on iv Ativan prn and last dose was given on 07/18/16 stable Sepsis possible pneumonia superficial skin 'gangrene of the foot? deep tissue injury? as per wound care on iv fluids on vanco and Zosyn gm positive bacillin in one bottle of blood culture- corynebacterium mostly contaminant ID on board. to continue same abx for now cultures no growth so far stopped abx stable. Left-sided chest pain, secondary to acute left rib fractures; 4th to 7th ribs as well as left clavicle fracture secondary to accidental fall. pain control appreciate ortho input pt/ot. hemothorax consulted pulmonary s/p left sided chest tube by critical care - so far no growth in pleural fluid chest tube removed on 07/19/[address] surgery. small pneumothorax on xray post chest tube removal and repeat cxr today 44mm apical pneumothorax repeat cxr minimal pneumothorax.r repeat cxr same-rib fractures and b/l pleural effusions Hypoxia,.s/p intubation and extubation from pleural effusions sedation pneumonia/ f/u chest US-170ml on left side currently stable on 2lts via nasal canula. two step before discharge Questionable PE on iv heparin repeat ct scan 07/21/16 unremarkable. Stopped iv heparin Hypertension history. iv Lopressor prn on clonidine prn currently on hydralazine 25mg tid and amlodipine 10mg daily will monitor Hyponatremia of 129 , likely secondary to dehydration.resolved. significant electrolyte abnormalities hypokalemia and hypophosphatemia and hypomagnesemia will replace will closely f/u labs Deep venous thrombosis prophylaxis: SCDs for now. DISPOSITION To be determined pt/ot social service for d/c planning Vital Signs: Date Time Temp Pulse Resp B/P Pulse Ox O2 Delivery O2 Flow Rate FiO2 07/25/16 15:40 36.6 76 16 137/77 100 Nasal Cannula 3.0 07/25/16 15:34 36.1 65 18 128/74 93 Nasal Cannula 3.0 07/25/16 15:30 Room Air 07/25/16 15:00 37.0 87 18 113/80 97 Nasal Cannula 4.0 07/25/16 14:45 37.0 90 22 109/69 97 Nasal Cannula 4.0 07/25/16 14:35 37.0 80 18 112/77 97 Nasal Cannula 4.0 07/25/16 14:32 Mask 07/25/16 14:25 37.0 86 22 116/75 97 Nasal Cannula 4.0 07/25/16 14:20 87 25 130/78 99 Mask 4.0 07/25/16 14:15 87 25 108/88 99 Mask 4.0 07/25/16 14:10 110 26 152/83 99 Mask 4.0 07/25/16 14:05 92 25 143/84 100 Mask 4.0 07/25/16 14:00 73 20 131/78 100 Mask 4.0 07/25/16 13:25 84 18 140/82 100 Mask 4.0 07/25/16 07:44 Room Air 07/25/16 07:16 37.0 64 16 158/79 96 Room Air 07/25/16 07:02 37.0 64 16 158/79 96 Room Air Nasal Cannula 07/24/16 23:59 Room Air 07/24/16 23:55 36.9 69 20 130/66 95 Room Air 07/24/16 16:34 37.1 72 20 138/78 95 Room Air Lab Results: Results Past 24 Hours Test 07/25/16 06:43 Range/Units White Blood Count 13.07 4.8-10.8 K/uL Red Blood Count 3.29 4.7-6.1 M/uL Hemoglobin 10.6 14.0-18.0 g/dL Hematocrit 31.3 42-52 % Mean Corpuscular Volume 95.1 80-100 fL Mean Corpuscular Hemoglobin 32.2 25-34 pg Mean Corpuscular Hemoglobin Concent 33.9 32-36 g/dl Platelet Count 702 130-400 K/uL Mean Platelet Volume 8.4 7.4-10.4 fL Neutrophils (%) (Auto) 67.3 % Lymphocytes (%) (Auto) 16.3 % Monocytes (%) (Auto) 12.2 % Eosinophils (%) (Auto) 2.1 % Basophils (%) (Auto) 0.6 % Neutrophils # (Auto) 8.79 1.4-6.5 K/uL Lymphocytes # (Auto) 2.13 1.2-3.4 K/uL Monocytes # (Auto) 1.60 0.11-0.59 K/uL Eosinophils # (Auto) 0.28 0-0.5 K/uL Basophils # (Auto) 0.08 0-0.2 K/uL RDW Standard Deviation 47.4 36.4-46.3 fL RDW Coefficient of Variation 13.7 11.5-14.5 % Immature Granulocyte % (Auto) 1.5 % Immature Granulocyte # (Auto) 0.19 0.00-0.02 K/uL Activated Partial Thromboplast Time 28.5 21.0-31.0 SECONDS Partial Thromboplastin Ratio 1.1 Sodium Level 138 136-145 mmol/L Potassium Level 3.7 3.5-5.1 mmol/L Chloride Level 102 98-107 mmol/L Carbon Dioxide Level 27 21-32 mmol/L Anion Gap 9.0 3-11 mmol/L Blood Urea Nitrogen 7 7-18 mg/dl Creatinine 0.67 0.60-1.40 mg/dl Est Creatinine Clear Calc Drug Dose 102.8 ml/min Estimated GFR () 128.9 Estimated GFR (Non- 111.3 BUN/Creatinine Ratio 9.9 10-20 Random Glucose 85 70-99 mg/dl Calcium Level 8.2 8.5-10.1 mg/dl Magnesium Level 1.8 1.8-2.4 mg/dl Microbiology Results 07/25/16 Fungal Smear, Received Pending 07/25/16 Fungal Culture, Received Pending 07/25/16 Acid Fast Stain, Received Pending 07/25/16 Mycobacterial Culture, Received Pending 07/25/16 Gram Stain, Received Pending 07/25/16 Bronchoalveolar Lavage Culture, Received Pending
[2016-07-26] MEDS: OXYCODONE/ACETAMINOPHEN 7.5-325 TAB PO SCH ×5 (03:00→20:08)
[2016-07-26] MEDS: HEPARIN SOD 5000 UNIT/0.5 ML CARP SQ SCH ×3 (05:41→20:11)
[2016-07-26 06:26] LABS: BASO % 0.6 %; BASO ABS # 0.08 K/uL (0-0.2); COMPLETE YES; EOS % 1.9 %; HEMATOCRIT 31.6 % (42-52); LYMPH % 14.7 %; LYMPH ABS # 1.97 K/uL (1.2-3.4); MEAN CELL VOLUME 95.2 fL (80-100); MEAN CORPUSCULAR HEMOGLOBIN 32.2 pg (25-34); MEAN CORPUSCULAR HGB CONC 33.9 g/dl (32-36); MEAN PLATELET VOLUME 8.4 fL (7.4-10.4); MONO % 12.3 %; NEUT % 69.5 %; PLATELET COUNT 688 K/uL (130-400); RED BLOOD COUNT 3.32 M/uL (4.7-6.1); WHITE BLOOD COUNT 13.38 K/uL (4.8-10.8)
[2016-07-26 06:36] LABS: PARTIAL THROMBOPLASTIN RATIO 1.1
--- NOTE | 2016-07-26 06:42 | DIAGNOSTIC IMAGING REPORT ---
CHEST 2 VIEWS ROUTINE CLINICAL HISTORY: pleural effusion COMPARISON STUDY: 07/25/2016 FINDINGS: The cardiac and mediastinal contours remain stable. There are persistent bilateral pleural effusions with bibasal airspace opacities. There are multiple left-sided rib fractures. There is a trace left apical pneumothorax.[ IMPRESSION: No change from the prior study. Persistent bilateral pleural effusions with associated bibasal airspace opacities. Trace left apical pneumothorax Electronically signed by: Alejandro Lucas M.D. 07/26/2016 6:40 AM Dictated Date/Time: 07/26/2016 6:39 AM
[2016-07-26 06:56] LABS: BUN/CREATININE RATIO 14.7 (10-20); CALCIUM 8.5 mg/dl (8.5-10.1); CREATININE 0.57 mg/dl (0.60-1.40); MAGNESIUM 1.8 mg/dl (1.8-2.4); POTASSIUM 3.6 mmol/L (3.5-5.1)
[2016-07-26 07:37] VITALS: BP 136/83; PULSE 78; TEMP 37.2; O2SAT 96
[2016-07-26 07:44] VITALS: O2SAT 96
[2016-07-26] MEDS: THIAMINE HCL 100 MG TAB PO SCH (08:20)
[2016-07-26] MEDS: AMLODIPINE BESYLATE 5 MG TAB PO SCH (08:20)
[2016-07-26] MEDS: ASCORBIC ACID 500 MG TAB PO SCH (08:20)
[2016-07-26] MEDS: NICOTINE 14 MG/24 HR TDSY TD SCH ×2 (08:21→09:23)
[2016-07-26] MEDS: PANTOprazole SOD 40 MG TAB PO SCH (08:21)
--- NOTE | 2016-07-26 11:07 | SURGERY PROGRESS NOTE ---
DATE: 07/26/2016 DATE: 07/26/2016. Mr. Chang was evaluated today one day after a diagnostic fiberoptic bronchoscopy. Mr. Chang is completely awake, alert. Affect is bright. He is conversive and understands exactly what happened yesterday. We discussed this in detail. The apparent extrinsic compression on the basilar segments is concerning to me. I went over the CAT scan with Dr. Song Murillo very closely. It appears the fluid in his left base may be loculated. It is not a great deal of fluid but I think with the appearance of the lung we may want to place a PleurX catheter in here. What I would like to do is be aggressive with his pulmonary rehab, have him ambulating, using incentive spirometer and coughing. He did have gram positive bacilli on his Gram stain. Overall, he is improving. At this point I would not do anything different; however, I am concerned about his left lower lobe. Dr. Murillo is going to see him and make sure that he is optimized from a pulmonary standpoint.
[2016-07-26 11:10] VITALS: BP 128/64; PULSE 76; TEMP 37; O2SAT 96
[2016-07-26 15:30] VITALS: O2SAT 96
[2016-07-26 16:00] VITALS: BP 154/70; PULSE 73; TEMP 36.7; O2SAT 96
--- NOTE | 2016-07-26 17:03 | Progress Note ---
Internal Med Progress Note Date of Service: Jul 26, 2016. Provider Documentation: SUBJECTIVE: feels tired and weak dizzy and lightheaded when standing up minimum cough , no fever or chills OBJECTIVE: Vital Signs-as noted below Exam: General- chronically ill appearing , no apparent distress ENT-normal hearing, moist oral mucosa , no erythema or congestion in oral mucosa Neck-no neck masses, no thyromegaly , trachea midline Lungs-diminished, no wheeze or rales Heart-s1 and s2 heard regular , no murmurs Abdomen-soft , non tender Extremities-no pedal edema no erythema Neuro-alert and awake oriented, generalized weakness, no focal neurological deficit moves extremities Lab data as noted below. ASSESSMENT & PLAN: ALCOHOL WITHDRAWAL admitted with fall /left sided rib fracture developed severe alcohol withdrawal while in hospital required ICU transfer with Intubation for air way protection /Precedex gtt extubated on 07/10/16 currently remains stable , no episode of encephalopathy or confusion LEFT SIDED CHEST PAIN /RIB FRACTURE : due to fall /intoxication developed left side hemothorax Left-sided chest pain, secondary to acute left rib fractures; 4th to 7th ribs as well as left clavicle fracture secondary to accidental fall. s/p chest tube placement chest tube taken out cont pain control PT/OT SEVERE SEPSIS -due to pneumonia /lower ext infection resolved completed 14 days of iv Zosyn(last dose 07/20/16). gm positive bacillin in one bottle of blood culture- corynebacterium mostly contaminant ID on board. ACUTE HYPOXEMIC RESPIRATORY FAILURE : due to Pneumonia /hemothorax /alcohol withdrawal s/p chest tube placement , removed on 07/19/[address] surgery extubated respiratory status stable CTA of chest was questionable PE , was on anticoagulation briefly repeat CT on 07/21/16 showed no sign of thrombotic event , IV heparin D/baldo S/P bronchoscopy on 07/26/16 for left lower collapsed lung- HTN : On hydralazine 25mg tid and amlodipine 10mg daily CONFUSION /METABOLIC ENCEPHALOPATHY : multifactorial due to alcohol withdrawal infection -sepsis , pain meds mental status improved to baseline FULL CODE DVT PROPHYLAXIS sub q heparin DISPOSITION Home less , had PT/OT eval appreciate PT note very poor functional status -significant balance disturbance , unable to use walker appropriately due to left shoulder , chest pain managed to walk only 40 ft , activity limited due to exertion /fatigue not safe to be discharged to home less care home will need SNF Social service following for DC planning will need referral to [facility] Vital Signs: Date Time Temp Pulse Resp B/P Pulse Ox O2 Delivery O2 Flow Rate FiO2 07/27/16 16:00 93 Room Air 07/27/16 15:22 37.1 71 19 146/73 95 Room Air 07/27/16 13:36 78 135/75 07/27/16 08:00 94 Room Air 07/27/16 07:20 36.7 69 16 143/83 94 Room Air 07/27/16 00:02 36.6 69 20 156/82 96 Room Air 07/27/16 00:00 Room Air 07/26/16 20:05 78 149/82 Lab Results: Results Past 24 Hours Test 07/27/16 08:25 Range/Units White Blood Count 13.38 4.8-10.8 K/uL Red Blood Count 3.48 4.7-6.1 M/uL Hemoglobin 11.2 14.0-18.0 g/dL Hematocrit 33.2 42-52 % Mean Corpuscular Volume 95.4 80-100 fL Mean Corpuscular Hemoglobin 32.2 25-34 pg Mean Corpuscular Hemoglobin Concent 33.7 32-36 g/dl RDW Standard Deviation 48.3 36.4-46.3 fL RDW Coefficient of Variation 14.1 11.5-14.5 % Platelet Count 671 130-400 K/uL Mean Platelet Volume 8.5 7.4-10.4 fL Activated Partial Thromboplast Time 30.5 21.0-31.0 SECONDS Partial Thromboplastin Ratio 1.2
[2016-07-26 20:05] VITALS: BP 149/82; PULSE 78
[2016-07-27] VITALS (9 sets, daily range): BP systolic 133–156; BP diastolic 68–83; PULSE 58–84; TEMP 36.4–37.1; O2SAT 93–96
[2016-07-27] MEDS: OXYCODONE/ACETAMINOPHEN 7.5-325 TAB PO SCH ×4 (02:54→19:58)
[2016-07-27] MEDS: HEPARIN SOD 5000 UNIT/0.5 ML CARP SQ SCH ×3 (06:06→19:59)
[2016-07-27] MEDS: AMLODIPINE BESYLATE 5 MG TAB PO SCH (07:56)
[2016-07-27] MEDS: THIAMINE HCL 100 MG TAB PO SCH (07:58)
[2016-07-27] MEDS: ASCORBIC ACID 500 MG TAB PO SCH (07:58)
[2016-07-27] MEDS: PANTOprazole SOD 40 MG TAB PO SCH (07:58)
[2016-07-27] MEDS: NICOTINE 14 MG/24 HR TDSY TD SCH (07:59)
[2016-07-27 08:54] LABS: HEMATOCRIT 33.2 % (42-52); MEAN CELL VOLUME 95.4 fL (80-100); MEAN CORPUSCULAR HEMOGLOBIN 32.2 pg (25-34); MEAN CORPUSCULAR HGB CONC 33.7 g/dl (32-36); MEAN PLATELET VOLUME 8.5 fL (7.4-10.4); PLATELET COUNT 671 K/uL (130-400); RED BLOOD COUNT 3.48 M/uL (4.7-6.1); WHITE BLOOD COUNT 13.38 K/uL (4.8-10.8)
[2016-07-27 09:00] LABS: PARTIAL THROMBOPLASTIN RATIO 1.2
--- NOTE | 2016-07-27 12:41 | Pulmonology Progress Note ---
Pulmonary Progress Note Date of Service Jul 27, 2016. Attending Dr. Isidro Murillo Subjective Patient doing well today with minimal pulmonary complaints but does note difficulty with deep inspiration/no pruritus. Objective Patient is interactive today, showing no signs of increased work of breathing. Physical exam: SaO2: RA 93-97% Gen.: Orientated 4 Respiratory: Auscultation: Decreased breath sounds bilaterally left greater than right with dullness to percussion Ultrasound: Ultrasound shows bilateral pleural effusion with signs of loculation on the left side Cardiac: S1-S2: No murmurs rubs or gallops appreciated Skin: Well-healed chest tube site Assessment & Plan 50y/o male alcoholic admitted status post fall/uptime to/pleural effusion who underwent severe alcohol withdrawal. #1 Pleural Effusion: Recent chest x-ray on 07/26/16 no bilateral pleural effusion , CT thorax 07/21/16 notes bilateral pleural effusion left hemithorax notable for signs of loculation. Ultrasonic evaluation today shows signs of loculation on the left hemithorax. At this time I believe the patient has trapped lung most likely and will require Intervention for reexpansion. Agree with CTS surgery for initiation of chest tube and MIST II protocol. If necessary possible decortication. With decortication in the hands of Dr. Barnett please reconsult if necessary. Data Medications: Current Inpatient Medications Medications (Trade) Dose Ordered Sig/Jaylene Route Start Time Stop Time Status Last Admin Dose Admin Nicotine (Nicoderm Cq 14MG Patch) 1 patch QAM TD 07/06/16 09:00 08/05/16 08:59 07/27/16 07:59 1 PATCH Miscellaneous (Remove Nicoderm Patch) 1 ea HS N/A 07/06/16 21:00 08/05/16 20:59 07/26/16 20:07 1 EA Miscellaneous (Iv Fluids Completed) 1 ea PRN PRN N/A 07/05/16 23:30 07/05/17 23:29 Acetaminophen (Tylenol Tab) 650 mg Q4H PRN PO 07/06/16 01:30 08/05/16 01:29 07/23/16 06:01 650 MG Miconazole Nitrate (Desenex Powder) 1 appln PRN PRN EXT 07/06/16 12:30 08/05/16 12:29 07/06/16 17:56 1 APPLN Folic Acid (Folvite Tab) 1 mg QAM PO 07/08/16 09:00 08/07/16 08:59 Future hold 07/27/16 07:56 1 MG Ascorbic Acid (Vitamin C Tab) 1,000 mg QAM PO 07/10/16 09:00 08/09/16 08:59 07/27/16 07:58 1,000 MG Lorazepam (Ativan Inj) 1 mg Q2HWA PRN IV 07/11/16 20:00 08/10/16 19:59 07/18/16 15:11 1 MG Pantoprazole Sodium (Protonix Tab) 40 mg QAM PO 07/15/16 09:00 08/14/16 08:59 07/27/16 07:58 40 MG Docusate Sodium (coLACE SYRUP) 100 mg BID PRN PO 07/15/16 21:00 08/14/16 20:59 07/27/16 11:41 100 MG Thiamine HCl (Vitamin B-1 Tab) 100 mg QAM PO 07/16/16 09:00 08/15/16 08:59 07/27/16 07:58 100 MG Clonidine HCl (Catapres Tab) 0.1 mg Q4 PRN PO 07/15/16 15:00 08/14/16 14:59 07/16/16 04:27 0.1 MG Amlodipine Besylate (Norvasc Tab) 10 mg QAM PO 07/16/16 08:30 08/15/16 08:29 07/27/16 07:56 10 MG Hydralazine HCl (Apresoline Tab) 25 mg TID PO 07/17/16 18:00 08/16/16 17:59 07/27/16 07:55 25 MG Loperamide HCl (Imodium Cap) 2 mg UD PRN PO 07/18/16 20:45 08/17/16 20:44 Oxycodone/ Acetaminophen (Percocet 7.5-325MG Tab) 1 tab Q6H PO 07/18/16 21:00 08/01/16 20:59 07/27/16 07:58 1 TAB Heparin Sodium (Porcine) (Heparin Sq 5000 Unit/0.5ml) 5,000 unit Q8 SQ 07/22/16 22:00 08/21/16 21:59 07/27/16 06:06 5,000 UNIT I & O: 24-Hour Column 07/27/16 08:00 Intake Total 710 ml Output Total 925 ml Balance -215 ml Vital Signs: Date Time Temp Pulse Resp B/P Pulse Ox O2 Delivery O2 Flow Rate FiO2 07/27/16 08:00 94 Room Air 07/27/16 07:20 36.7 69 16 143/83 94 Room Air 07/27/16 00:02 36.6 69 20 156/82 96 Room Air 07/27/16 00:00 Room Air 07/26/16 20:05 78 149/82 07/26/16 16:00 36.7 73 20 154/70 96 Room Air 07/26/16 15:30 96 Room Air Laboratory Results: Last 24 Hours Test 07/27/16 08:25 White Blood Count 13.38 K/uL Red Blood Count 3.48 M/uL Hemoglobin 11.2 g/dL Hematocrit 33.2 % Mean Corpuscular Volume 95.4 fL Mean Corpuscular Hemoglobin 32.2 pg Mean Corpuscular Hemoglobin Concent 33.7 g/dl RDW Standard Deviation 48.3 fL RDW Coefficient of Variation 14.1 % Platelet Count 671 K/uL Mean Platelet Volume 8.5 fL Activated Partial Thromboplast Time 30.5 SECONDS Partial Thromboplastin Ratio 1.2
--- NOTE | 2016-07-27 17:51 | Progress Note ---
Internal Med Progress Note Date of Service: Jul 27, 2016. Provider Documentation: SUBJECTIVE: offers no complain still requiring maximum assist on transfer no fever or chills no SOB OBJECTIVE: Vital Signs-as noted below Exam: General- chronically ill appearing , no apparent distress ENT-normal hearing, moist oral mucosa , no erythema or congestion in oral mucosa Neck-no neck masses, no thyromegaly , trachea midline Lungs-diminished, no wheeze or rales Heart-s1 and s2 heard regular , no murmurs Abdomen-soft , non tender Extremities-no pedal edema no erythema Neuro-alert and awake oriented, generalized weakness, no focal neurological deficit moves extremities Lab data as noted below. ASSESSMENT & PLAN: ALCOHOL WITHDRAWAL admitted with fall /left sided rib fracture developed severe alcohol withdrawal while in hospital required ICU transfer with Intubation for air way protection /Precedex gtt extubated on 07/10/16 currently remains stable , no episode of encephalopathy or confusion LEFT SIDED CHEST PAIN /RIB FRACTURE : due to fall /intoxication developed left side hemothorax Left-sided chest pain, secondary to acute left rib fractures; 4th to 7th ribs as well as left clavicle fracture secondary to accidental fall. s/p chest tube placement chest tube taken out cont pain control PT/OT SEVERE SEPSIS -due to pneumonia /lower ext infection resolved completed 14 days of iv Zosyn(last dose 07/20/16). gm positive bacillin in one bottle of blood culture- corynebacterium mostly contaminant ID on board. ACUTE HYPOXEMIC RESPIRATORY FAILURE : due to Pneumonia /hemothorax /alcohol withdrawal s/p chest tube placement , removed on 07/19/[address] surgery extubated respiratory status stable CTA of chest was questionable PE , was on anticoagulation briefly repeat CT on 07/21/16 showed no sign of thrombotic event , IV heparin D/baldo S/P bronchoscopy on 07/26/16 for left lower collapsed lung- HTN : On hydralazine 25mg tid and amlodipine 10mg daily CONFUSION /METABOLIC ENCEPHALOPATHY : multifactorial due to alcohol withdrawal infection -sepsis , pain meds mental status improved to baseline FULL CODE DVT PROPHYLAXIS sub q heparin DISPOSITION Home less , had PT/OT eval appreciate PT note very poor functional status -significant balance disturbance , unable to use walker appropriately due to left shoulder , chest pain managed to walk only 40 ft , activity limited due to exertion /fatigue not safe to be discharged to home less senior living will need SNF Social service following for DC planning will need referral to [facility] Vital Signs: Date Time Temp Pulse Resp B/P Pulse Ox O2 Delivery O2 Flow Rate FiO2 07/27/16 16:00 93 Room Air 07/27/16 15:22 37.1 71 19 146/73 95 Room Air 07/27/16 13:36 78 135/75 07/27/16 08:00 94 Room Air 07/27/16 07:20 36.7 69 16 143/83 94 Room Air 07/27/16 00:02 36.6 69 20 156/82 96 Room Air 07/27/16 00:00 Room Air 07/26/16 20:05 78 149/82 Lab Results: Results Past 24 Hours Test 07/27/16 08:25 Range/Units White Blood Count 13.38 4.8-10.8 K/uL Red Blood Count 3.48 4.7-6.1 M/uL Hemoglobin 11.2 14.0-18.0 g/dL Hematocrit 33.2 42-52 % Mean Corpuscular Volume 95.4 80-100 fL Mean Corpuscular Hemoglobin 32.2 25-34 pg Mean Corpuscular Hemoglobin Concent 33.7 32-36 g/dl RDW Standard Deviation 48.3 36.4-46.3 fL RDW Coefficient of Variation 14.1 11.5-14.5 % Platelet Count 671 130-400 K/uL Mean Platelet Volume 8.5 7.4-10.4 fL Activated Partial Thromboplast Time 30.5 21.0-31.0 SECONDS Partial Thromboplastin Ratio 1.2
--- NOTE | 2016-07-27 18:59 | SURGERY PROGRESS NOTE ---
DATE: 07/27/2016 SUBJECTIVE: Mr. Chang was seen today. He looked very good. He has been walking in the hallway with physical therapy. He is a bit short of breath. I discussed this case in detail with Dr. Murillo. The pleural fluid on the left may well be causing a problem. We discussed drainage with a PleurX catheter, I am going to insert one of these. I am going to insert a PleurX catheter into his left pleural cavity tomorrow morning; however, in reviewing his CT scan from last week, this is not going to be a technically simple case. I think he has increased risk of having a pneumothorax. The lung is lying again very close to the chest wall throughout his left pleural cavity. Having said that, I think we can safely do this; however, I am going to repeat a CT scan early in the morning and make a determination of whether to proceed with a PleurX catheter or not. I will say he does sound better to me. MTDBrandi
[2016-07-27] MEDS: DOCUSATE SODIUM 100 MG CAP PO SCH (21:00)
[2016-07-28] VITALS (7 sets, daily range): BP systolic 127–154; BP diastolic 62–83; PULSE 65–89; TEMP 36.3–36.6; O2SAT 91–96
[2016-07-28] MEDS: OXYCODONE/ACETAMINOPHEN 7.5-325 TAB PO SCH ×4 (03:42→20:33)
[2016-07-28] MEDS: HEPARIN SOD 5000 UNIT/0.5 ML CARP SQ SCH ×2 (06:24→13:49)
--- NOTE | 2016-07-28 06:59 | DIAGNOSTIC IMAGING REPORT ---
CT OF THE CHEST WITHOUT IV CONTRAST CLINICAL HISTORY: Pleural effusion. Left lower lobe consolidation. COMPARISON STUDY: Chest CT July 21, 2016 and chest radiograph July 26, 2016. CT DOSE: 222.68 mGy.cm TECHNIQUE: Axial images of the chest were obtained without IV contrast. Images were reviewed in the axial, sagittal, and coronal planes. IV contrast was not administered for this examination. FINDINGS: A trace left apical pneumothorax is noted. The amount of pleural gas has significantly diminished since exam of July 21, 2016. A small left pleural effusion is similar to exam of July 21, 2016. Extensive left lower lobe airspace opacity with volume loss is noted. Left lower lobe aeration is markedly diminished but slightly improved since exam of July 21, 2016. A small to moderate right pleural effusion is similar to prior CT of July 21, 2016. There is extensive right lower lobe airspace opacity with volume loss which is similar to prior exam. There are patchy groundglass opacities within the upper lobes. There is no right pneumothorax. Note is again made of numerous healing left-sided rib fractures as well as healing fracture the distal left clavicle and the manubrium. Dilatation of the ascending aorta measuring 4.5 cm is again noted. Visualized portions of the upper abdomen are unremarkable on this unenhanced exam. IMPRESSION: 1. Small left and [id number] right pleural effusions which are similar to CT of July 21, 2016. Trace residual left pneumothorax. 2. Extensive bilateral lower lobe airspace opacities with volume loss. Atelectasis is favored although pneumonia could appear similar. Left lower lobe aeration is significantly diminished but slightly improved since prior CT. Right lower lobe aeration is similar to prior exam. Mild multifocal secretions within the airways, including mucus within the trachea and at the shashank. No central obstructing lesion. 3. Redemonstration of numerous healing fractures within the chest as described above. Electronically signed by: Kalin Roberts M.D. 07/28/2016 6:57 AM Dictated Date/Time: 07/28/2016 6:48 AM
[2016-07-28] MEDS: DOCUSATE SODIUM 100 MG CAP PO SCH ×2 (07:42→20:33)
[2016-07-28] MEDS: POLYETHYLENE (MIRALAX) 17 GM PACK PO SCH (07:43)
[2016-07-28] MEDS: AMLODIPINE BESYLATE 5 MG TAB PO SCH (07:43)
[2016-07-28] MEDS: THIAMINE HCL 100 MG TAB PO SCH (07:44)
[2016-07-28] MEDS: ASCORBIC ACID 500 MG TAB PO SCH (07:44)
[2016-07-28] MEDS: PANTOprazole SOD 40 MG TAB PO SCH (07:44)
[2016-07-28] MEDS: NICOTINE 14 MG/24 HR TDSY TD SCH (07:45)
[2016-07-28 08:04] LABS: PARTIAL THROMBOPLASTIN RATIO 1.1
[2016-07-28] MEDS ORDERED: LIDOCAINE HCL 1% 20 ML VIAL ONE (08:28)
[2016-07-28] MEDS ORDERED: NURSING VERBAL MED ORDER ONE (09:00)
[2016-07-28] MEDS ORDERED: MoRPHine SULFATE 2 MG/ML CARP IV STA (09:01)
[2016-07-28] MEDS ORDERED: MoRPHine SULFATE 2 MG/ML CARP ONE (09:02)
--- NOTE | 2016-07-28 09:11 | DIAGNOSTIC IMAGING REPORT ---
CHEST ONE VIEW PORTABLE HISTORY: pleural effusion--pleurex insertion COMPARISON: Chest 07/26/2016. FINDINGS: Interval placement of a left basilar pleural catheter. This appears to be in good position. Trace left pleural effusion has decreased in size. Tiny left pneumothorax. Multiple left-sided healing rib fractures. Small right pleural effusion and bibasilar densities persist. The heart is normal in size. IMPRESSION: 1. Interval placement of a left-sided pleural catheter. This appears to be in good position. 2. Decrease in size of the trace left pleural effusion. Tiny left pneumothorax persists. 3. Small right pleural effusion and bibasilar densities are again noted. Electronically signed by: Jigar Cassidy M.D. 07/28/2016 9:09 AM Dictated Date/Time: 07/28/2016 9:06 AM
--- NOTE | 2016-07-28 09:16 | OPERATIVE REPORT ---
DATE OF OPERATION: 07/28/2016 PREOPERATIVE DIAGNOSIS: Loculated pleural effusion. POSTOPERATIVE DIAGNOSIS: Same. PROCEDURE: Insertion of left PleurX catheter under ultrasound guidance. SURGEON: Dr. Cisneros. MEDICAL TECHNOLOGIST [employer]LOOD BANK: [employer] [employer]. ANESTHESIA: Local. SPECIFICS OF PROCEDURE: With the patient in right lateral decubitus position, his left chest prepped and draped in usual sterile fashion after an ultrasound had been used to find a window into an area of fluid. I also checked his CT scan. After appropriate timeout and consent had been obtained, a skin wheal was raised with 25-gauge needle and 1% Xylocaine at about the 8th interspace in the posterior axillary line. Skin wheal was raised with 25-gauge needle and a larger needle was used to anesthetize the subcutaneous tissues and pleura, and then when free flowing fluid was obtained, a soft J-tip guidewire was inserted through the needle and needle removed. A 1 cm incision was made and the wire was left in the area. 10 cm anterior and inferior to this, another skin wheal was raised with 25-gauge needle and 1% Xylocaine, and a 1 cm incision was made. A long needle was used with 1% Xylocaine to anesthetize subcutaneous tissues between the 2 incisions and then a tunneler was attached to the PleurX catheter and dragged from the anterior to the posterior incision. Introducer sheath was slid over the guidewire posteriorly, the inner cannula and guidewire were removed, and the PleurX catheter placed through the peel away sheath which was peeled away. Two 3-0 silk sutures used to close the posterior incision and a single 3-0 silk suture was used to anchor the catheter to the patient's skin anteriorly. About 300 mL of a serous yellow fluid was drained. It was sent for appropriate cultures. He tolerated it well, although he did have some reexpansion pain and we gave him morphine at the conclusion of the case. The chest x-ray is pending. I attest to the content of the Intraoperative Record and any orders documented therein. Any exceptio ns are noted below.
--- NOTE | 2016-07-28 09:29 | SURGERY PROGRESS NOTE ---
DATE: 07/28/2016 Mr. Chang was seen today on 07/28/2016. I had a long talk with the patient last night and this morning. I have discussed this case with Dr. Song Murillo. His complicated left pleural effusion may be contributing to the consolidation we saw in the left lower lobe. I agree with Song Murillo that a PleurX catheter is indicated. I checked another CT scan today and I was a bit surprised to see that not only did he have more fluid on the left, but he also has more fluid on the right. He is eating well. He is ambulating. I am a bit concerned about these pleural effusions. We will of course send fluid off today when we place a PleurX catheter. Should the patient have reexpansion of his lung completely, then we will simply drain the PleurX. If he is not completely drained or he has a trapped lung, we will institute the MIST-2 protocol.
[2016-07-28] MEDS ORDERED: ASCA500 PO (10:01)
[2016-07-28] MEDS ORDERED: APR50 PO (10:01)
[2016-07-28] MEDS ORDERED: FLV1 PO (10:01)
[2016-07-28] MEDS ORDERED: PRT40 PO (10:01)
[2016-07-28] MEDS ORDERED: THM100 PO (10:01)
[2016-07-28] MEDS ORDERED: NRV5 PO (10:01)
[2016-07-28] MEDS ORDERED: MRLP17 PO (10:01)
[2016-07-28] MEDS ORDERED: NCDT14 TD (10:01)
[2016-07-28] MEDS ORDERED: TYL325X PO (10:01)
--- NOTE | 2016-07-28 10:02 | Discharge Instructions ---
Discharge Instructions Admission Reason for Admission: Chest Pain Discharge Discharge Diagnosis / Problem: FALL /RIB FRACTURE / RESPIRATORY FAILIURE / RECURRENT PLEURAL EFFUSION Discharge Goals Goal(s): Increase independence, Improve disease control, Diagnostic testing, Therapeutic intervention Activity Recommendations Activity Level: Assistance Required Therapies: Physical Therapy, Occupational Therapy . Additional Information Patient informed of condition: Yes Advance Directives: No DNR: No Level of Care: Skilled Communicable Disease: No Prognosis: Stable Nielsen Catheter: No Instructions / Follow-Up Instructions / Follow-Up FOLLOW UP WITH [facility] DR PALACIO IN A WEEK PLEASE CALL OFFICE FOR APPOINTMENT Current Hospital Diet Patient's current hospital diet: Regular Diet Discharge Diet Recommended Diet: Regular Diet Pending Studies Studies pending at discharge: yes (CHEST XRAY IN A WEEK ) List of pending studies: FOLLOW UP WITH [facility] DR PALACIO IN A WEEK PLEASE CALL OFFICE FOR APPOINTMENT CHEST XRAY IN A WEEK TO ASSESS PLURAL EFFUSION REMOVE SUTURES ON LEFT CHEST WALL IN 2-3 DAYS Physician Orders On Transfer Additional Orders: REMOVE SUTURES ON LEFT CHEST WALL IN 2-3 DAYS Laboratory Results Hemoglobin A1c Test 07/08/16 02:56 Range/Units Estimated Average Glucose 94 mg/dl Hemoglobin A1c 4.9 4.5-5.6 % Medical Emergencies . Who to Call and When: Medical Emergencies: If at any time you feel your situation is an emergency, please call 911 immediately. . Non-Emergent Contact Non-Emergency issues call your: Primary Care Provider . . "Provider Documentation" section prepared by Neisha Norman. Core Measure Problem Core Measures: None
[2016-07-28 11:06] LABS: PLEURAL FLUID APPEARANCE CLEAR; PLEURAL FLUID COLOR YELLOW; PLEURAL FLUID MONONUC RELAT 82.6 %; PLEURAL FLUID POLYNUC 17.4 %; PLEURAL FLUID SOURCE LEFT LUNG; PLEURAL FLUID WBC (A) 146 /uL
[2016-07-28 11:25] LABS: PLEURAL FLUID TOTAL PROTEIN 2.9 g/dl
[2016-07-28] MEDS: ACETAMINOPHEN 325 MG TAB PO PRN ×2 (11:50→19:39)
--- NOTE | 2016-07-28 17:55 | Progress Note ---
Internal Med Progress Note Date of Service: Jul 28, 2016. Provider Documentation: SUBJECTIVE: Pleurx catheter placed today for recurrence of left sided pleural effusion pt denies of any SOB has persisted IYER complains of pain at Pleurx catheter site OBJECTIVE: Vital Signs-as noted below Exam: General- chronically ill appearing , no apparent distress ENT-normal hearing, moist oral mucosa , no erythema or congestion in oral mucosa Neck-no neck masses, no thyromegaly , trachea midline Lungs-diminished, Pleurx catheter placed on left sided chest , no drainage or swelling Heart-s1 and s2 heard regular , no murmurs Abdomen-soft , non tender Extremities-no pedal edema no erythema Neuro-alert and awake oriented, generalized weakness, no focal neurological deficit moves extremities Lab data as noted below. ASSESSMENT & PLAN: LEFT SIDED PLEURAL EFFUSION : ct chest shows reaccumulation of pleural effusion of left side appreciate input form CT surgery Plurex catheter placed for recurrent effusion hx of chronic smoking 1/2 pk cig a day for 20 yrs no evidence of respiratory distress pleural fluid sent for cytology follow clinically ALCOHOL WITHDRAWAL admitted with fall /left sided rib fracture developed severe alcohol withdrawal while in hospital required ICU transfer with Intubation for air way protection /Precedex gtt extubated on 07/10/16 currently remains stable , no episode of encephalopathy or confusion LEFT SIDED CHEST PAIN /RIB FRACTURE : due to fall /intoxication developed left side hemothorax Left-sided chest pain, secondary to acute left rib fractures; 4th to 7th ribs as well as left clavicle fracture secondary to accidental fall. cont pain control PT/OT SEVERE SEPSIS -due to pneumonia /lower ext infection resolved completed 14 days of iv Zosyn(last dose 07/20/16). gm positive bacillin in one bottle of blood culture- corynebacterium mostly contaminant ID on board. ACUTE HYPOXEMIC RESPIRATORY FAILURE : due to Pneumonia /hemothorax /alcohol withdrawal s/p chest tube placement , removed on 07/19/[address] surgery extubated respiratory status stable CTA of chest was questionable PE , was on anticoagulation briefly repeat CT on 07/21/16 showed no sign of thrombotic event , IV heparin D/baldo S/P bronchoscopy on 07/26/16 for left lower collapsed lung- Plurex catheter placed for recurrent left sided pleural effusion HTN : On hydralazine 25mg tid and amlodipine 10mg daily CONFUSION /METABOLIC ENCEPHALOPATHY : multifactorial due to alcohol withdrawal infection -sepsis , pain meds mental status improved to baseline FULL CODE DVT PROPHYLAXIS scd and teds DISPOSITION Home less , had PT/OT eval appreciate PT note very poor functional status -significant balance disturbance , unable to use walker appropriately due to left shoulder , chest pain managed to walk only 40 ft , activity limited due to exertion /fatigue not safe to be discharged to home less residential will need SNF placement after medically improved Social service following for DC planning Vital Signs: Date Time Temp Pulse Resp B/P Pulse Ox O2 Delivery O2 Flow Rate FiO2 07/28/16 16:00 96 Room Air 07/28/16 15:25 36.3 87 19 127/70 91 Room Air 07/28/16 13:30 89 18 136/62 Room Air 96 07/28/16 08:00 96 Room Air 07/28/16 07:17 36.6 65 16 154/83 96 Room Air 07/28/16 04:00 93 Room Air 07/28/16 00:05 93 Room Air 07/27/16 22:34 36.9 74 16 147/76 95 Room Air 07/27/16 19:55 84 133/73 93 Room Air Lab Results: Results Past 24 Hours Test 07/28/16 07:20 07/28/16 09:00 Range/Units Activated Partial Thromboplast Time 28.8 21.0-31.0 SECONDS Partial Thromboplastin Ratio 1.1 Pleural Fluid Source LEFT LUNG Pleural Fluid Color YELLOW Pleural Fluid Appearance CLEAR Pleural Fluid WBC 146 /uL Pleural Fluid RBC < 3000 /uL Pleural Fluid Polynuclear WBCs % 17.4 % Pleural Fluid Mononuclear WBCs % 82.6 % Pleural Fluid Total Protein 2.9 g/dl Pleural Fluid LDH 144 IU Pleural Fluid Glucose 101 mg/dl Pleural Fluid Amylase 30 U/L Microbiology Results 07/28/16 Fungal Smear - Final, Resulted 07/28/16 Fungal Culture, Resulted Pending 07/28/16 Acid Fast Stain, Received Pending 07/28/16 Mycobacterial Culture, Received Pending 07/28/16 Gram Stain - Final, Resulted 07/28/16 Bacterial Culture, Resulted Pending
[2016-07-29] VITALS (7 sets, daily range): BP systolic 123–145; BP diastolic 74–79; PULSE 65–77; TEMP 36.8–36.9; O2SAT 93–96
[2016-07-29] MEDS: OXYCODONE/ACETAMINOPHEN 7.5-325 TAB PO SCH ×5 (02:33→21:00)
[2016-07-29 06:34] LABS: HEMATOCRIT 32.1 % (42-52); MEAN CELL VOLUME 94.7 fL (80-100); MEAN CORPUSCULAR HEMOGLOBIN 32.4 pg (25-34); MEAN CORPUSCULAR HGB CONC 34.3 g/dl (32-36); MEAN PLATELET VOLUME 8.4 fL (7.4-10.4); PLATELET COUNT 542 K/uL (130-400); RED BLOOD COUNT 3.39 M/uL (4.7-6.1); WHITE BLOOD COUNT 13.74 K/uL (4.8-10.8)
[2016-07-29 06:41] LABS: PARTIAL THROMBOPLASTIN RATIO 1.1
--- NOTE | 2016-07-29 07:20 | DIAGNOSTIC IMAGING REPORT ---
CHEST ONE VIEW PORTABLE HISTORY: pleural effusion COMPARISON: Chest 07/28/2016. FINDINGS: Tiny left apical pneumothorax persists. Left basilar chest tube is unchanged in position. Small left pleural effusion is again noted. Right-sided pleural effusion is also unchanged. The heart is normal in size. The upper lung zones are clear. Bibasilar densities persist. IMPRESSION: 1. No significant change in the left-sided hydropneumothorax and small right pleural effusion. 2. Left sided pleural catheter is unchanged in position. 3. Bibasilar densities persist. Electronically signed by: Jigar Cassidy M.D. 07/29/2016 7:18 AM Dictated Date/Time: 07/29/2016 7:16 AM
[2016-07-29] MEDS: DOCUSATE SODIUM 100 MG CAP PO SCH ×2 (07:57→20:59)
[2016-07-29] MEDS: AMLODIPINE BESYLATE 5 MG TAB PO SCH (07:58)
[2016-07-29] MEDS: POLYETHYLENE (MIRALAX) 17 GM PACK PO SCH (07:58)
[2016-07-29] MEDS: ASCORBIC ACID 500 MG TAB PO SCH (07:59)
[2016-07-29] MEDS: PANTOprazole SOD 40 MG TAB PO SCH (07:59)
[2016-07-29] MEDS: THIAMINE HCL 100 MG TAB PO SCH (07:59)
[2016-07-29] MEDS: NICOTINE 14 MG/24 HR TDSY TD SCH (08:00)
--- NOTE | 2016-07-29 12:28 | Psychiatric Progress Notes ---
Psychiatric Progress Note Date of Service Jul 29, 2016. Notes ID: Patient reviewed with liaison nurse. Initial consult reviewed. CC: "feel better with the tube" HPI: Patient states he is going well, still no idea what friend he could stay with at discharge, SW exploring. TUSCARORA but answering questions appropriately. Denies SI. ROS: SOB, slept OK MSE: alert, cooperative, thoughts concrete but organized, no SI/HI/turner. Imp: adjustment disorder and ETOH dependence Plan: agree no acute indication for inpatient psych, would benefit from outpatient D&A counseling to support sobriety
[2016-07-29] MEDS: ACETAMINOPHEN 325 MG TAB PO PRN ×2 (12:34→17:48)
--- NOTE | 2016-07-29 12:42 | Pulmonology Progress Note ---
Pulmonary Progress Note Date of Service Jul 29, 2016. Attending Dr. Isidro Murillo Subjective Patient is doing well today but still notes pleuritic chest discomfort. Objective Patient is interactive today, showing no signs of increased work of breathing. Physical exam: SaO2: RA 93-95% IPC Drain: 75cc Gen.: Orientated 4 Respiratory: Clear to auscultation bilaterally in the upper lobes, decreased breath sound dullness in the right lower lobe, notable rhonchi increased breath sounds in the left lower lobe Cardiac: S1-S2: No murmurs rubs or gallops appreciated Skin: Well-healed chest tube site on the right/IPC catheter in place no signs of secondary infection on the left hemithorax Assessment & Plan 50y/o male alcoholic admitted status post fall/uptime to/pleural effusion who underwent severe alcohol withdrawal. #1 Loculated Pleural Effusion: Recent chest x-ray on 07/26/16 no bilateral pleural effusion, CT thorax 07/21/16 notes bilateral pleural effusion left hemithorax CT of the thorax as well as patient's clinical response to IPC drainage suggest left hemithorax/pleural effusion is loculated. Even with this the lung has dramatically improved after IPC catheter placement. There is only minimal pneumothorax present at this time. We'll defer to CTS surgery for necessity of inner intervention. Data Medications: Current Inpatient Medications Medications (Trade) Dose Ordered Sig/Jaylene Route Start Time Stop Time Status Last Admin Dose Admin Nicotine (Nicoderm Cq 14MG Patch) 1 patch QAM TD 07/06/16 09:00 08/05/16 08:59 07/29/16 08:00 1 PATCH Miscellaneous (Remove Nicoderm Patch) 1 ea HS N/A 07/06/16 21:00 08/05/16 20:59 07/28/16 20:45 1 EA Miscellaneous (Iv Fluids Completed) 1 ea PRN PRN N/A 07/05/16 23:30 07/05/17 23:29 Acetaminophen (Tylenol Tab) 650 mg Q4H PRN PO 07/06/16 01:30 08/05/16 01:29 07/29/16 12:34 650 MG Miconazole Nitrate (Desenex Powder) 1 appln PRN PRN EXT 07/06/16 12:30 08/05/16 12:29 07/06/16 17:56 1 APPLN Folic Acid (Folvite Tab) 1 mg QAM PO 07/08/16 09:00 08/07/16 08:59 Future hold 07/29/16 07:58 1 MG Ascorbic Acid (Vitamin C Tab) 1,000 mg QAM PO 07/10/16 09:00 08/09/16 08:59 07/29/16 07:59 1,000 MG Lorazepam (Ativan Inj) 1 mg Q2HWA PRN IV 07/11/16 20:00 08/10/16 19:59 07/18/16 15:11 1 MG Pantoprazole Sodium (Protonix Tab) 40 mg QAM PO 07/15/16 09:00 08/14/16 08:59 07/29/16 07:59 40 MG Thiamine HCl (Vitamin B-1 Tab) 100 mg QAM PO 07/16/16 09:00 08/15/16 08:59 07/29/16 07:59 100 MG Clonidine HCl (Catapres Tab) 0.1 mg Q4 PRN PO 07/15/16 15:00 08/14/16 14:59 07/16/16 04:27 0.1 MG Amlodipine Besylate (Norvasc Tab) 10 mg QAM PO 07/16/16 08:30 08/15/16 08:29 07/29/16 07:58 10 MG Hydralazine HCl (Apresoline Tab) 25 mg TID PO 07/17/16 18:00 08/16/16 17:59 07/29/16 07:57 25 MG Oxycodone/ Acetaminophen (Percocet 7.5-325MG Tab) 1 tab Q6H PO 07/18/16 21:00 08/01/16 20:59 07/29/16 07:59 1 TAB Docusate Sodium (coLACE CAP) 100 mg BID PO 07/27/16 21:00 08/26/16 20:59 07/29/16 07:57 100 MG Polyethylene (Miralax Powder Packet) 17 gm DAILY PO 07/28/16 09:00 08/27/16 08:59 07/29/16 07:58 17 GM I & O: 24-Hour Column 07/29/16 08:00 Intake Total 1845 ml Output Total 1825 ml Balance 20 ml Vital Signs: Date Time Temp Pulse Resp B/P Pulse Ox O2 Delivery O2 Flow Rate FiO2 07/29/16 08:00 95 Room Air 07/29/16 07:23 36.8 65 16 123/77 95 Room Air 07/29/16 00:07 36.9 69 18 129/76 93 Room Air 07/29/16 00:00 Room Air 07/28/16 16:00 96 Room Air 07/28/16 15:25 36.3 87 19 127/70 91 Room Air 07/28/16 13:30 89 18 136/62 Room Air 96 Laboratory Results: Last 24 Hours Test 07/29/16 05:49 White Blood Count 13.74 K/uL Red Blood Count 3.39 M/uL Hemoglobin 11.0 g/dL Hematocrit 32.1 % Mean Corpuscular Volume 94.7 fL Mean Corpuscular Hemoglobin 32.4 pg Mean Corpuscular Hemoglobin Concent 34.3 g/dl RDW Standard Deviation 48.4 fL RDW Coefficient of Variation 14.0 % Platelet Count 542 K/uL Mean Platelet Volume 8.4 fL Activated Partial Thromboplast Time 29.1 SECONDS Partial Thromboplastin Ratio 1.1
--- NOTE | 2016-07-29 14:18 | SURGERY PROGRESS NOTE ---
DATE: 07/29/2016 Mr. Chang and I had a long talk this morning. I am concerned about his left base. It appears on the chest x-ray it may be drained well enough; however, I am going to need to get a CT scan to see if we have any more expansion of the consolidated left lower lobe or the patient has loculated fluid that will require the MIST-2 protocol with TPA and Pulmozyme. I am also going to perform a right thoracentesis because I do not have an explanation for why this patient has a right pleural effusion. His fractures were on the left which would explain why we saw what we saw. However, the patient has been eating quite well. Even though his albumin was down to 1.7 the last time it was checked on 07/10/2016, when he came in on 07/05/2016, it was 3.3. At any rate, we are going to check a CT scan on him today, and if he does have loculated fluid, we will institute the MIST-2 protocol. LUIS EDUARDO
[2016-07-29 14:32] LABS: PLEURAL FLUID APPEARANCE CLOUDY; PLEURAL FLUID COLOR AMBER; PLEURAL FLUID MONONUC RELAT 24.2 %; PLEURAL FLUID POLYNUC 75.8 %; PLEURAL FLUID SOURCE RIGHT LUNG; PLEURAL FLUID TOTAL PROTEIN 3.2 g/dl; PLEURAL FLUID WBC (A) 2142 /uL
--- NOTE | 2016-07-29 14:45 | DIAGNOSTIC IMAGING REPORT ---
CT OF THE CHEST WITHOUT IV CONTRAST CLINICAL HISTORY: Left lower lobe pulmonary consolidation. History of right thoracentesis. COMPARISON STUDY: 07/28/2016 CT DOSE: 186.62 mGycm TECHNIQUE: CT of the thorax was performed from the thoracic inlet to the lung bases. Images are reviewed in the axial, sagittal, and coronal planes. IV contrast was not administered for this examination. FINDINGS: Thyroid: Imaged portions of the thyroid gland are normal in appearance. Thoracic aorta: There is persistent dilatation of the a sitting thoracic aorta which measures 4.7 cm in maximal diameter Heart: There is a small pericardial effusion. This is slightly larger than on the preceding study Lungs and pleural spaces: There is a left-sided pleural drainage catheter. There is subcutaneous emphysema on the left. There is evidence for interval right-sided thoracentesis with marked interval decrease in the amount of right-sided pleural fluid. No pneumothorax is visualized. The left pleural effusion is diminished in volume. There are improving left basilar airspace opacities. Right basilar airspace opacities are likely atelectatic. There are a few wispy right upper lobe airspace opacity similar to the prior study. There are multiple healing left-sided rib fractures. There is a small amount of mucus within the trachea just above the shashank. There are areas of left lower lobe mucus plugging. Mediastinum: There is no mediastinal lymphadenopathy. Carol: Clear. Axilla: Clear. Upper abdomen: Partially visualized upper abdominal viscera is within normal limits. Skeletal structures: Multiple left-sided rib fractures are visualized. IMPRESSION: 1. Marked interval decrease in the size of the right pleural effusion status post right-sided thoracentesis. No evidence of pneumothorax 2. Interval placement of a left-sided chest tube. Decreasing left pleural effusion 3. Improving aeration of the lower lobes bilaterally 4. Small pericardial effusion which is increased slightly since the prior study 5. Multiple healing left-sided rib fractures Electronically signed by: Alejandro Lucas M.D. 07/29/2016 2:43 PM Dictated Date/Time: 07/29/2016 2:37 PM
--- NOTE | 2016-07-29 14:48 | OPERATIVE REPORT ---
DATE OF OPERATION: 07/29/2016 PREOPERATIVE DIAGNOSIS: Right pleural effusion. POSTOPERATIVE DIAGNOSIS: Same. PROCEDURE: Right thoracentesis. SURGEON: Dr. Cisneros. MINE MOTOR OPERATOR: Carlos Johnson PA-C. ANESTHESIA: Local. SPECIFICS OF PROCEDURE: With the patient in the seated position an ultrasound was used to find a window at about the eighth interspace in a more lateral orientation posteriorly. This was prepped and draped in usual sterile fashion. After appropriate timeout had been called 25 gauge needle 1% Xylocaine used to raise the skin wheal. A longer needle was used to anesthetize the deeper muscles and pleura. Large bore needle then was inserted into the pleural cavity and serous fluid drained. A guidewire was inserted through this and the needle removed. Introducer and sheath slid over the guidewire gently and removed and the triple lumen catheter inserted 17 cm and the wire removed. Total of almost 600 mL of fluid was drained that was a light orange. He tolerated it well. He noted immediate improvement in his respirations. We are going to send the patient down for a CT scan and we will send this fluid off for appropriate studies. I attest to the content of the Intraoperative Record and any orders documented therein. Any exceptions are noted below. MTDD
--- NOTE | 2016-07-29 22:15 | Progress Note ---
Internal Med Progress Note Date of Service: Jul 29, 2016. Provider Documentation: SUBJECTIVE: had rt sided pleurocentesis by Dr Cisneros today post procure CT chest shows marked decreased in rt sided effusion pt offers no complain of chest pain or SOB remains afebrile OBJECTIVE: Vital Signs-as noted below Exam: General- chronically ill appearing , no apparent distress ENT-normal hearing, moist oral mucosa , no erythema or congestion in oral mucosa Neck-no neck masses, no thyromegaly , trachea midline Lungs-diminished, Pleurx catheter placed on left sided chest , no drainage or swelling Heart-s1 and s2 heard regular , no murmurs Abdomen-soft , non tender Extremities-no pedal edema no erythema Neuro-alert and awake oriented, generalized weakness, no focal neurological deficit moves extremities Lab data as noted below. ASSESSMENT & PLAN: LEFT SIDED PLEURAL EFFUSION : ct chest shows reaccumulation of pleural effusion of left side appreciate input form CT surgery Plurex catheter placed for recurrent effusion hx of chronic smoking 1/2 pk cig a day for 20 yrs no evidence of respiratory distress pleural fluid sent for cytology follow clinically RT SIDED PLEURAL EFFUSION S/P rt sided pleurocentesis by Dr Cisneros today with drainage of approx 600 ml of pleural effusion tolerated procedure well CT chest post procedure: IMPRESSION: 1. Marked interval decrease in the size of the right pleural effusion status post right-sided thoracentesis. No evidence of pneumothorax 2. Interval placement of a left-sided chest tube. Decreasing left pleural effusion 3. Improving aeration of the lower lobes bilaterally 4. Small pericardial effusion which is increased slightly since the prior study 5. Multiple healing left-sided rib fractures cont to monitor ALCOHOL WITHDRAWAL admitted with fall /left sided rib fracture developed severe alcohol withdrawal while in hospital required ICU transfer with Intubation for air way protection /Precedex gtt extubated on 07/10/16 currently remains stable , no episode of encephalopathy or confusion LEFT SIDED CHEST PAIN /RIB FRACTURE : due to fall /intoxication developed left side hemothorax Left-sided chest pain, secondary to acute left rib fractures; 4th to 7th ribs as well as left clavicle fracture secondary to accidental fall. cont pain control PT/OT will need SNF SEVERE SEPSIS -due to pneumonia /lower ext infection resolved completed 14 days of iv Zosyn(last dose 07/20/16). gm positive bacillin in one bottle of blood culture- corynebacterium mostly contaminant ID on board. ACUTE HYPOXEMIC RESPIRATORY FAILURE : due to Pneumonia /hemothorax /alcohol withdrawal s/p chest tube placement , removed on 07/19/[address] surgery extubated respiratory status stable CTA of chest was questionable PE , was on anticoagulation briefly repeat CT on 07/21/16 showed no sign of thrombotic event , IV heparin D/baldo S/P bronchoscopy on 07/26/16 for left lower collapsed lung- Plurex catheter placed for recurrent left sided pleural effusion s/p rt sided thoracentesis with drainage of 600 ml of effusion respiratory status remains stable no hypoxia ; in room air HTN : On hydralazine 25mg tid and amlodipine 10mg daily CONFUSION /METABOLIC ENCEPHALOPATHY : resolve, alert, oriented , conversing appropriately multifactorial due to alcohol withdrawal infection -sepsis , pain meds mental status improved to baseline FULL CODE DVT PROPHYLAXIS scd and teds DISPOSITION Home less , had PT/OT eval appreciate PT note very poor functional status -significant balance disturbance , unable to use walker appropriately due to left shoulder , chest pain managed to walk only 40 ft , activity limited due to exertion /fatigue not safe to be discharged to home less [facility] will need SNF placement after medically improved Social service following for DC planning -will need referral to [facility] cont in patient admission of ongoing plural effusion /Pleurx catheter pt will be transferred to SNF when medically stable Vital Signs: Date Time Temp Pulse Resp B/P Pulse Ox O2 Delivery O2 Flow Rate FiO2 07/29/16 20:55 70 131/76 95 Room Air 07/29/16 16:00 95 Room Air 07/29/16 14:25 77 18 145/79 07/29/16 08:00 95 Room Air 07/29/16 07:23 36.8 65 16 123/77 95 Room Air 07/29/16 00:07 36.9 69 18 129/76 93 Room Air 07/29/16 00:00 Room Air Lab Results: Results Past 24 Hours Test 07/29/16 00:00 07/29/16 05:49 Range/Units Pleural Fluid Source RIGHT LUNG Pleural Fluid Color MITZY Pleural Fluid Appearance CLOUDY Pleural Fluid WBC 2142 /uL Pleural Fluid RBC 81121 /uL Pleural Fluid pH 7.50 7.3-7.4 Pleural Fluid Polynuclear WBCs % 75.8 % Pleural Fluid Mononuclear WBCs % 24.2 % Pleural Fluid Total Protein 3.2 g/dl Pleural Fluid LDH 133 IU Pleural Fluid Glucose 97 mg/dl Pleural Fluid Amylase 33 U/L White Blood Count 13.74 4.8-10.8 K/uL Red Blood Count 3.39 4.7-6.1 M/uL Hemoglobin 11.0 14.0-18.0 g/dL Hematocrit 32.1 42-52 % Mean Corpuscular Volume 94.7 80-100 fL Mean Corpuscular Hemoglobin 32.4 25-34 pg Mean Corpuscular Hemoglobin Concent 34.3 32-36 g/dl RDW Standard Deviation 48.4 36.4-46.3 fL RDW Coefficient of Variation 14.0 11.5-14.5 % Platelet Count 542 130-400 K/uL Mean Platelet Volume 8.4 7.4-10.4 fL Activated Partial Thromboplast Time 29.1 21.0-31.0 SECONDS Partial Thromboplastin Ratio 1.1 Microbiology Results 07/29/16 Acid Fast Stain, Received Pending 07/29/16 Mycobacterial Culture, Received Pending 07/29/16 Gram Stain - Final, Resulted 07/29/16 Bacterial Culture, Resulted Pending
[2016-07-30] VITALS (7 sets, daily range): BP systolic 128–137; BP diastolic 73–84; PULSE 70–86; TEMP 36.7–37.1; O2SAT 92–96
[2016-07-30] MEDS: OXYCODONE/ACETAMINOPHEN 7.5-325 TAB PO SCH ×4 (03:28→19:01)
[2016-07-30 07:18] LABS: PARTIAL THROMBOPLASTIN RATIO 1.1
--- NOTE | 2016-07-30 07:54 | DIAGNOSTIC IMAGING REPORT ---
CHEST ONE VIEW PORTABLE CLINICAL HISTORY: pleural effusion COMPARISON STUDY: 07/29/2016 FINDINGS: The left basilar chest tube remains unchanged in position. There are small bilateral pleural effusions with bibasal airspace opacities. There are multiple left-sided rib fractures. There is no pneumothorax.[ IMPRESSION: Stable findings Electronically signed by: Alejandro Lucas M.D. 07/30/2016 7:52 AM Dictated Date/Time: 07/30/2016 7:51 AM
--- NOTE | 2016-07-30 08:10 | Pulmonology Progress Note ---
Pulmonary Progress Note Date of Service Jul 30, 2016. Attending Dr. Isidro Murillo Assessment & Plan The pulmonary Team will sign-of at this time I will be rotating off the service on Monday and Doctor Freddie will be on. Please ask us to rejoin this patient's care if necessary. Data Medications: Current Inpatient Medications Medications (Trade) Dose Ordered Sig/Jaylene Route Start Time Stop Time Status Last Admin Dose Admin Nicotine (Nicoderm Cq 14MG Patch) 1 patch QAM TD 07/06/16 09:00 08/05/16 08:59 07/29/16 08:00 1 PATCH Miscellaneous (Remove Nicoderm Patch) 1 ea HS N/A 07/06/16 21:00 08/05/16 20:59 07/29/16 20:58 1 EA Miscellaneous (Iv Fluids Completed) 1 ea PRN PRN N/A 07/05/16 23:30 07/05/17 23:29 Acetaminophen (Tylenol Tab) 650 mg Q4H PRN PO 07/06/16 01:30 08/05/16 01:29 07/29/16 17:48 650 MG Miconazole Nitrate (Desenex Powder) 1 appln PRN PRN EXT 07/06/16 12:30 08/05/16 12:29 07/06/16 17:56 1 APPLN Folic Acid (Folvite Tab) 1 mg QAM PO 07/08/16 09:00 08/07/16 08:59 Future hold 07/29/16 07:58 1 MG Ascorbic Acid (Vitamin C Tab) 1,000 mg QAM PO 07/10/16 09:00 08/09/16 08:59 07/29/16 07:59 1,000 MG Lorazepam (Ativan Inj) 1 mg Q2HWA PRN IV 07/11/16 20:00 08/10/16 19:59 07/18/16 15:11 1 MG Pantoprazole Sodium (Protonix Tab) 40 mg QAM PO 07/15/16 09:00 08/14/16 08:59 07/29/16 07:59 40 MG Thiamine HCl (Vitamin B-1 Tab) 100 mg QAM PO 07/16/16 09:00 08/15/16 08:59 07/29/16 07:59 100 MG Clonidine HCl (Catapres Tab) 0.1 mg Q4 PRN PO 07/15/16 15:00 08/14/16 14:59 07/16/16 04:27 0.1 MG Amlodipine Besylate (Norvasc Tab) 10 mg QAM PO 07/16/16 08:30 08/15/16 08:29 07/29/16 07:58 10 MG Hydralazine HCl (Apresoline Tab) 25 mg TID PO 07/17/16 18:00 08/16/16 17:59 07/29/16 20:59 25 MG Oxycodone/ Acetaminophen (Percocet 7.5-325MG Tab) 1 tab Q6H PO 07/18/16 21:00 08/01/16 20:59 07/30/16 03:28 1 TAB Docusate Sodium (coLACE CAP) 100 mg BID PO 07/27/16 21:00 08/26/16 20:59 07/29/16 20:59 100 MG Polyethylene (Miralax Powder Packet) 17 gm DAILY PO 07/28/16 09:00 08/27/16 08:59 07/29/16 07:58 17 GM I & O: 24-Hour Column 07/30/16 08:00 Intake Total 1150 ml Output Total 1900 ml Balance -750 ml Vital Signs: Date Time Temp Pulse Resp B/P Pulse Ox O2 Delivery O2 Flow Rate FiO2 07/30/16 07:46 95 Room Air 07/30/16 07:15 37.1 71 18 128/84 96 Room Air 07/30/16 00:00 Room Air 07/29/16 23:15 36.8 73 18 125/74 96 Room Air 07/29/16 20:55 70 131/76 95 Room Air 07/29/16 16:00 95 Room Air 07/29/16 14:25 77 18 145/79 Laboratory Results: Last 24 Hours Test 07/30/16 06:58 Activated Partial Thromboplast Time 28.7 SECONDS Partial Thromboplastin Ratio 1.1
[2016-07-30] MEDS: THIAMINE HCL 100 MG TAB PO SCH (08:26)
[2016-07-30] MEDS: AMLODIPINE BESYLATE 5 MG TAB PO SCH (08:27)
[2016-07-30] MEDS: ASCORBIC ACID 500 MG TAB PO SCH (08:27)
[2016-07-30] MEDS: PANTOprazole SOD 40 MG TAB PO SCH (08:27)
[2016-07-30] MEDS: DOCUSATE SODIUM 100 MG CAP PO SCH ×2 (08:28→21:24)
[2016-07-30] MEDS: NICOTINE 14 MG/24 HR TDSY TD SCH (08:28)
[2016-07-30] MEDS: POLYETHYLENE (MIRALAX) 17 GM PACK PO SCH (08:29)
--- NOTE | 2016-07-30 10:27 | SURGERY PROGRESS NOTE ---
DATE: 07/30/2016 DATE: 07/30/2016. Mr. Chang was seen today. We performed a pleural tap for a transudative fluid which appears to be benign and without evidence of infection on the right yesterday. He states his breathing is much improved. A CT scan was performed yesterday and I see very little in the way of fluid on the left. I discussed this with Dr. Murillo and I do not think a MIST-2 is indicated at this point. In addition, the consolidation of the left lower lobe has improved. At this point, we will continue with aggressive pulmonary toilet. I have asked that the patient walk and he has been walking much better in the last day or so. He is quite concerned about being discharged. Saturations look quite good, 95% on room air. He is eating well. An x-ray this morning looks good except he does have some reaccumulation of some fluid in the right base, although it is not very much. Overall I think he looks better. We will continue aggressive pulmonary toilet and continue to follow him as the drainage from his PleurX catheter decreases (put out 75 mL yesterday) we will continue to follow. LUIS EDUARDO
[2016-07-30] MEDS ORDERED: OXYC7.5T62 PO (17:04)
--- NOTE | 2016-07-30 17:09 | Progress Note ---
Internal Med Progress Note Date of Service: Jul 30, 2016. Provider Documentation: SUBJECTIVE: complains of pain on left side , at plurex catheter insertion area requesting for Percocet SOB has improved, no cough no fever or chills OBJECTIVE: Vital Signs-as noted below Exam: General- chronically ill appearing , no apparent distress ENT-normal hearing, moist oral mucosa , no erythema or congestion in oral mucosa Neck-no neck masses, no thyromegaly , trachea midline Lungs-diminished, Pleurx catheter placed on left sided chest , no drainage or swelling Heart-s1 and s2 heard regular , no murmurs Abdomen-soft , non tender Extremities-no pedal edema no erythema Neuro-alert and awake oriented, generalized weakness, no focal neurological deficit moves extremities Lab data as noted below. ASSESSMENT & PLAN: LEFT SIDED PLEURAL EFFUSION : ct chest shows reaccumulation of pleural effusion of left side appreciate input form CT surgery Plurex catheter placed for recurrent effusion getting intermittent drainage hx of chronic smoking 1/2 pk cig a day for 20 yrs no evidence of respiratory distress pleural fluid sent for cytology -no malignant cell seen follow clinically RT SIDED PLEURAL EFFUSION S/P rt sided pleurocentesis by Dr Cisneros on 07/29/16 with drainage of approx 600 ml of pleural effusion tolerated procedure well CT chest post procedure: IMPRESSION: 1. Marked interval decrease in the size of the right pleural effusion status post right-sided thoracentesis. No evidence of pneumothorax 2. Interval placement of a left-sided chest tube. Decreasing left pleural effusion 3. Improving aeration of the lower lobes bilaterally 4. Small pericardial effusion which is increased slightly since the prior study 5. Multiple healing left-sided rib fractures cont to monitor ALCOHOL WITHDRAWAL admitted with fall /left sided rib fracture developed severe alcohol withdrawal while in hospital required ICU transfer with Intubation for air way protection /Precedex gtt extubated on 07/10/16 currently remains stable , no episode of encephalopathy or confusion LEFT SIDED CHEST PAIN /RIB FRACTURE : due to fall /intoxication developed left side hemothorax Left-sided chest pain, secondary to acute left rib fractures; 4th to 7th ribs as well as left clavicle fracture secondary to accidental fall. cont pain control PT/OT will need SNF-will need referral made to [facility] SEVERE SEPSIS -due to pneumonia /lower ext infection resolved completed 14 days of iv Zosyn(last dose 07/20/16). gm positive bacillin in one bottle of blood culture- corynebacterium mostly contaminant ID consulted ACUTE HYPOXEMIC RESPIRATORY FAILURE : due to Pneumonia /hemothorax /alcohol withdrawal s/p chest tube placement , removed on 07/19/[address] surgery extubated respiratory status stable CTA of chest was questionable PE , was on anticoagulation briefly repeat CT on 07/21/16 showed no sign of thrombotic event , IV heparin D/baldo S/P bronchoscopy on 07/26/16 for left lower collapsed lung- Plurex catheter placed for recurrent left sided pleural effusion s/p rt sided thoracentesis with drainage of 600 ml of effusion respiratory status remains stable no hypoxia ; in room air HTN : On hydralazine 25mg tid and amlodipine 10mg daily CONFUSION /METABOLIC ENCEPHALOPATHY : resolve, alert, oriented , conversing appropriately multifactorial due to alcohol withdrawal infection -sepsis , pain meds mental status improved to baseline FULL CODE DVT PROPHYLAXIS scd and teds DISPOSITION [facility] , had PT/OT eval appreciate PT note very poor functional status -significant balance disturbance , unable to use walker appropriately due to left shoulder , chest pain managed to walk only 40 ft , activity limited due to exertion /fatigue not safe to be discharged to [facility] will need SNF placement after medically improved Social service following for DC planning -will need referral to [facility] cont in patient admission of ongoing plural effusion /Pleurx catheter pt will be transferred to SNF when medically stable Vital Signs: Date Time Temp Pulse Resp B/P Pulse Ox O2 Delivery O2 Flow Rate FiO2 07/30/16 16:00 95 Room Air 07/30/16 15:15 36.7 85 18 137/73 95 Room Air 07/30/16 14:00 86 133/73 07/30/16 07:46 95 Room Air 07/30/16 07:15 37.1 71 18 128/84 96 Room Air 07/30/16 00:00 Room Air 07/29/16 23:15 36.8 73 18 125/74 96 Room Air 07/29/16 20:55 70 131/76 95 Room Air Lab Results: Results Past 24 Hours Test 07/30/16 06:58 Range/Units Activated Partial Thromboplast Time 28.7 21.0-31.0 SECONDS Partial Thromboplastin Ratio 1.1
[2016-07-31] VITALS (8 sets, daily range): BP systolic 119–145; BP diastolic 73–79; PULSE 59–80; TEMP 36.7–36.9; O2SAT 92–98
[2016-07-31] MEDS: OXYCODONE/ACETAMINOPHEN 7.5-325 TAB PO SCH ×7 (00:09→23:58)
[2016-07-31 07:34] LABS: HEMATOCRIT 32.3 % (42-52); MEAN CELL VOLUME 94.7 fL (80-100); MEAN CORPUSCULAR HEMOGLOBIN 32.6 pg (25-34); MEAN CORPUSCULAR HGB CONC 34.4 g/dl (32-36); MEAN PLATELET VOLUME 8.2 fL (7.4-10.4); PLATELET COUNT 436 K/uL (130-400); RED BLOOD COUNT 3.41 M/uL (4.7-6.1)
[2016-07-31 07:42] LABS: PARTIAL THROMBOPLASTIN RATIO 1.1
[2016-07-31] MEDS: PANTOprazole SOD 40 MG TAB PO SCH (08:16)
[2016-07-31] MEDS: ASCORBIC ACID 500 MG TAB PO SCH (08:16)
[2016-07-31] MEDS: NICOTINE 14 MG/24 HR TDSY TD SCH (08:16)
[2016-07-31] MEDS: THIAMINE HCL 100 MG TAB PO SCH (08:17)
[2016-07-31] MEDS: AMLODIPINE BESYLATE 5 MG TAB PO SCH (08:17)
[2016-07-31] MEDS: DOCUSATE SODIUM 100 MG CAP PO SCH ×2 (08:18→20:23)
[2016-07-31] MEDS: POLYETHYLENE (MIRALAX) 17 GM PACK PO SCH (08:18)
--- NOTE | 2016-07-31 08:57 | SURGERY PROGRESS NOTE ---
DATE: 07/31/2016 Mr. Chang was seen today on 07/31/2016. His Pain has gotten better. He is 95% on room air and he has been ambulating more. He is eating very well. In fact, this patient has cleaned his plate every time I have been in the room in the last week. I am sure his albumin has improved. His vital signs are stable. I thought his x-ray from yesterday looked very good. At this point, I am going to remove his PleurX catheter, it is really not draining. Should he reaccumulate, we will reevaluate. But at this point from a surgical perspective, he is stable to be discharged or sent to any extended care facility. I would ask that his sutures in his left posterior chest be removed in 2-3 days.
--- NOTE | 2016-07-31 09:04 | OPERATIVE REPORT ---
DATE OF OPERATION: 07/31/2016 PROCEDURE: Removal of left PleurX catheter. SURGEON: Dr. Cisneros. SPECIFICS OF PROCEDURE: At the patient's bedside his site was inspected. Suture was cut after prepping this with alcohol and then 1% Xylocaine without epinephrine was used to anesthetize the skin and subcutaneous tissues. I then removed this without difficulty. A sterile antimicrobial dressing was placed. He tolerated it well. Chest x-ray will be obtained in the morning. I attest to the content of the Intraoperative Record and any orders documented therein. Any exceptio ns are noted below.
--- NOTE | 2016-07-31 17:28 | Progress Note ---
Internal Med Progress Note Date of Service: Jul 31, 2016. Provider Documentation: SUBJECTIVE: Pleurx catheter removed today no complain of SOB no fever or chills OBJECTIVE: Vital Signs-as noted below Exam: General- chronically ill appearing , no apparent distress ENT-normal hearing, moist oral mucosa , no erythema or congestion in oral mucosa Neck-no neck masses, no thyromegaly , trachea midline Lungs-diminished, Heart-s1 and s2 heard regular , no murmurs Abdomen-soft , non tender Extremities-no pedal edema no erythema Neuro-alert and awake oriented, generalized weakness, no focal neurological deficit moves extremities Lab data as noted below. ASSESSMENT & PLAN: LEFT SIDED PLEURAL EFFUSION : ct chest shows reaccumulation of pleural effusion of left side appreciate input form CT surgery Plurex catheter placed for recurrent effusion getting intermittent drainage Catheter removed today out pt follow up Cxray in 1-2 weeks hx of chronic smoking 1/2 pk cig a day for 20 yrs no evidence of respiratory distress pleural fluid sent for cytology -no malignant cell seen follow clinically RT SIDED PLEURAL EFFUSION S/P rt sided pleurocentesis by Dr Cisneros on 07/29/16 with drainage of approx 600 ml of pleural effusion tolerated procedure well CT chest post procedure: IMPRESSION: 1. Marked interval decrease in the size of the right pleural effusion status post right-sided thoracentesis. No evidence of pneumothorax 2. Interval placement of a left-sided chest tube. Decreasing left pleural effusion 3. Improving aeration of the lower lobes bilaterally 4. Small pericardial effusion which is increased slightly since the prior study 5. Multiple healing left-sided rib fractures cont to monitor ALCOHOL WITHDRAWAL admitted with fall /left sided rib fracture developed severe alcohol withdrawal while in hospital required ICU transfer with Intubation for air way protection /Precedex gtt extubated on 07/10/16 currently remains stable , no episode of encephalopathy or confusion LEFT SIDED CHEST PAIN /RIB FRACTURE : due to fall /intoxication developed left side hemothorax Left-sided chest pain, secondary to acute left rib fractures; 4th to 7th ribs as well as left clavicle fracture secondary to accidental fall. cont pain control PT/OT will need SNF-will need referral made to [facility] SEVERE SEPSIS resolved -due to pneumonia completed 14 days of iv Zosyn(last dose 07/20/16). gm positive bacillin in one bottle of blood culture- corynebacterium mostly contaminant ID consulted ACUTE HYPOXEMIC RESPIRATORY FAILURE : due to Pneumonia /hemothorax /alcohol withdrawal s/p chest tube placement , removed on 07/19/[address] surgery extubated respiratory status stable CTA of chest was questionable PE , was on anticoagulation briefly repeat CT on 07/21/16 showed no sign of thrombotic event , IV heparin D/baldo S/P bronchoscopy on 07/26/16 for left lower collapsed lung- Plurex catheter placed for recurrent left sided pleural effusion s/p rt sided thoracentesis with drainage of 600 ml of effusion respiratory status remains stable no hypoxia ; in room air HTN : On hydralazine 25mg tid and amlodipine 10mg daily CONFUSION /METABOLIC ENCEPHALOPATHY : resolve, alert, oriented , conversing appropriately multifactorial due to alcohol withdrawal infection -sepsis , pain meds mental status improved to baseline FULL CODE DVT PROPHYLAXIS scd and teds DISPOSITION [facility] , had PT/OT eval appreciate PT note very poor functional status -significant balance disturbance , unable to use walker appropriately due to left shoulder , chest pain managed to walk only 40 ft , activity limited due to exertion /fatigue not safe to be discharged to [facility] will need SNF placement after medically improved Social service following for DC planning -will need referral to [facility] pt is stable to be transferred to SNF /[facility] tomorrow Vital Signs: Date Time Temp Pulse Resp B/P Pulse Ox O2 Delivery O2 Flow Rate FiO2 07/31/16 16:00 97 Room Air 07/31/16 15:06 36.9 75 16 130/79 97 Room Air 07/31/16 14:27 74 123/74 07/31/16 10:01 95 Room Air 07/31/16 07:47 36.7 59 18 119/73 95 Room Air 07/31/16 00:27 95 Room Air 07/30/16 22:45 36.7 70 20 129/78 92 Room Air 07/30/16 21:00 95 Room Air Lab Results: Results Past 24 Hours Test 07/31/16 07:19 Range/Units White Blood Count 14.30 4.8-10.8 K/uL Red Blood Count 3.41 4.7-6.1 M/uL Hemoglobin 11.1 14.0-18.0 g/dL Hematocrit 32.3 42-52 % Mean Corpuscular Volume 94.7 80-100 fL Mean Corpuscular Hemoglobin 32.6 25-34 pg Mean Corpuscular Hemoglobin Concent 34.4 32-36 g/dl RDW Standard Deviation 48.2 36.4-46.3 fL RDW Coefficient of Variation 13.9 11.5-14.5 % Platelet Count 436 130-400 K/uL Mean Platelet Volume 8.2 7.4-10.4 fL Activated Partial Thromboplast Time 28.9 21.0-31.0 SECONDS Partial Thromboplastin Ratio 1.1
[2016-08-01] MEDS: OXYCODONE/ACETAMINOPHEN 7.5-325 TAB PO SCH ×5 (04:00→20:41)
[2016-08-01 07:32] VITALS: BP 141/78; PULSE 62; TEMP 36.8; O2SAT 96
[2016-08-01] MEDS: AMLODIPINE BESYLATE 5 MG TAB PO SCH (08:48)
[2016-08-01] MEDS: THIAMINE HCL 100 MG TAB PO SCH (08:48)
[2016-08-01] MEDS: ASCORBIC ACID 500 MG TAB PO SCH (08:48)
[2016-08-01] MEDS: DOCUSATE SODIUM 100 MG CAP PO SCH ×2 (08:49→20:41)
[2016-08-01] MEDS: PANTOprazole SOD 40 MG TAB PO SCH (08:50)
[2016-08-01] MEDS: NICOTINE 14 MG/24 HR TDSY TD SCH (08:53)
[2016-08-01] MEDS: POLYETHYLENE (MIRALAX) 17 GM PACK PO SCH (08:56)
--- NOTE | 2016-08-01 09:16 | DIAGNOSTIC IMAGING REPORT ---
CHEST 2 VIEWS ROUTINE CLINICAL HISTORY: Pleural effusions. Shortness of breath. Chest pain. COMPARISON STUDY: Chest radiograph July 30, [address] July 29, 2016. FINDINGS: The left basilar chest tube has been removed since exam of July 30, 2016. Small right and trace left pleural effusions are present. Healing left-sided rib fractures and a healing fracture of the distal left clavicle are again noted. There is no evidence of pulmonary edema. Cardiac size is normal. Mediastinal contours are normal. Mild bibasilar opacities have slightly improved. No pneumothorax is identified. IMPRESSION: 1. No pneumothorax. 2. Small right and trace left pleural effusions with mild bibasilar opacities which favor atelectasis. Electronically signed by: Kalin Roberts M.D. 08/01/2016 9:14 AM Dictated Date/Time: 08/01/2016 9:11 AM
--- NOTE | 2016-08-01 11:02 | Progress Note ---
Internal Med Progress Note Date of Service: Aug 01, 2016. Provider Documentation: SUBJECTIVE: had and uneventful night has minimum pain on left rib area with movement , deep breath no drainage or swelling at the site where Pluex catheter was removed no fever or chills no SOB or cough stable to be transferred to Skilled rehab today OBJECTIVE: Vital Signs-as noted below Exam: General- chronically ill appearing , no apparent distress ENT-normal hearing, moist oral mucosa , no erythema or congestion in oral mucosa Neck-no neck masses, no thyromegaly , trachea midline Lungs-diminished, Heart-s1 and s2 heard regular , no murmurs Abdomen-soft , non tender Extremities-no pedal edema no erythema ; Plurex catheter removed form left lateral chest wall, sutures placed, no drainage or erythema Neuro-alert and awake oriented, generalized weakness, no focal neurological deficit moves extremities Lab data as noted below. ASSESSMENT & PLAN: LEFT SIDED PLEURAL EFFUSION : ct chest with reaccumulation of pleural effusion of left side appreciate input form CT surgery Plurex catheter placed for recurrent effusion had intermittent drainage Catheter removed on 07/31/16 out pt follow up Cxray in 1-2 weeks hx of chronic smoking 1/2 pk cig a day for 20 yrs no evidence of respiratory distress pleural fluid sent for cytology -no malignant cell seen Clinically stable will be transferred to Skilled rehab need Follow up chest xray in a week , and CT surgery follow up as out pt in 2-3 weeks RT SIDED PLEURAL EFFUSION S/P rt sided pleurocentesis by Dr Cisneros on 07/29/16 with drainage of approx 600 ml of pleural effusion tolerated procedure well -pleural fluid cytology -no malignant cell seen CT chest post procedure: IMPRESSION: 1. Marked interval decrease in the size of the right pleural effusion status post right-sided thoracentesis. No evidence of pneumothorax 2. Interval placement of a left-sided chest tube. Decreasing left pleural effusion 3. Improving aeration of the lower lobes bilaterally 4. Small pericardial effusion which is increased slightly since the prior study 5. Multiple healing left-sided rib fractures respiratory status improved to baseline stable to be discharged o SNF today ALCOHOL ABUSE /WITHDRAWAL admitted with fall /left sided rib fracture -intoxication developed severe alcohol withdrawal while in hospital required ICU transfer with Intubation for air way protection /Precedex gtt extubated on 07/10/16 currently remains stable , no episode of encephalopathy or confusion LEFT SIDED CHEST PAIN /RIB FRACTURE : due to fall /intoxication developed left side hemothorax Left-sided chest pain, secondary to acute left rib fractures; 4th to 7th ribs as well as left clavicle fracture secondary to accidental fall. cont pain control PT/OT will need SNF-will need referral made to [facility] SEVERE SEPSIS resolved -due to pneumonia completed 14 days of iv Zosyn(last dose 07/20/16). gm positive bacillin in one bottle of blood culture- corynebacterium mostly contaminant ID consulted ACUTE HYPOXEMIC RESPIRATORY FAILURE : due to Pneumonia /hemothorax /alcohol withdrawal s/p chest tube placement , removed on 07/19/[address] surgery extubated respiratory status stable CTA of chest was questionable PE , was on anticoagulation briefly repeat CT on 07/21/16 showed no sign of thrombotic event , IV heparin D/baldo S/P bronchoscopy on 07/26/16 for left lower collapsed lung- Plurex catheter placed for recurrent left sided pleural effusion s/p rt sided thoracentesis with drainage of 600 ml of effusion respiratory status remains stable no hypoxia ; in room air HTN : On hydralazine 25mg tid and amlodipine 10mg daily CONFUSION /METABOLIC ENCEPHALOPATHY : resolve, alert, oriented , conversing appropriately multifactorial due to alcohol withdrawal infection -sepsis , pain meds mental status improved to baseline FULL CODE DVT PROPHYLAXIS scd and teds DISPOSITION [facility] , had PT/OT eval appreciate PT note very poor functional status -significant balance disturbance , unable to use walker appropriately due to left shoulder , chest pain managed to walk only 40 ft , activity limited due to exertion /fatigue not safe to be discharged to [facility] will need SNF placement after medically improved Social service following for DC planning -will need referral to [facility] pt is stable to be transferred to SNF /[facility] today Vital Signs: Date Time Temp Pulse Resp B/P Pulse Ox O2 Delivery O2 Flow Rate FiO2 08/01/16 08:00 Room Air 08/01/16 07:32 36.8 62 20 141/78 96 08/01/16 00:15 Room Air 07/31/16 23:27 36.8 74 20 133/76 92 Room Air 07/31/16 20:20 80 145/78 98 Room Air 07/31/16 16:00 97 Room Air 07/31/16 15:06 36.9 75 16 130/79 97 Room Air 07/31/16 14:27 74 123/74
--- NOTE | 2016-08-01 12:36 | Progress Note ---
Progress Note ATTENDING NOTE : updated by CM Pt is denies acceptance at [facility] due to alcohol abuse history. Referral made to [facility] Patient is medically stable for discharge to SNF
[2016-08-01 14:06] VITALS: BP 133/79; PULSE 76
[2016-08-01 14:41] VITALS: BP 131/77; PULSE 81; TEMP 36.4; O2SAT 95
[2016-08-01 20:35] VITALS: BP 152/83; PULSE 77
[2016-08-01 20:40] VITALS: O2SAT 95
[2016-08-02] VITALS: O2SAT 95
[2016-08-02] MEDS: OXYCODONE/ACETAMINOPHEN 7.5-325 TAB PO SCH ×4 (00:03→12:46)
[2016-08-02 00:35] VITALS: BP 151/87; PULSE 74; TEMP 36.5; O2SAT 94
[2016-08-02 07:21] VITALS: BP 146/85; PULSE 67; TEMP 36.6; O2SAT 95
[2016-08-02] MEDS: ASCORBIC ACID 500 MG TAB PO SCH (07:54)
[2016-08-02] MEDS: AMLODIPINE BESYLATE 5 MG TAB PO SCH (07:55)
[2016-08-02] MEDS: DOCUSATE SODIUM 100 MG CAP PO SCH ×2 (07:56→20:31)
[2016-08-02] MEDS: THIAMINE HCL 100 MG TAB PO SCH (07:56)
[2016-08-02] MEDS: NICOTINE 14 MG/24 HR TDSY TD SCH (07:58)
[2016-08-02] MEDS: PANTOprazole SOD 40 MG TAB PO SCH (07:58)
[2016-08-02] MEDS: POLYETHYLENE (MIRALAX) 17 GM PACK PO SCH (07:59)
[2016-08-02 13:39] VITALS: BP 130/80; PULSE 93
--- NOTE | 2016-08-02 14:34 | Progress Note ---
Internal Med Progress Note Date of Service: Aug 02, 2016. Provider Documentation: SUBJECTIVE: complains of pain on left chest wall says the dose of Perocet not helping much wondering if it can be increased no complain of SOB does have some IYER no fever or chills OBJECTIVE: Vital Signs-as noted below Exam: General- chronically ill appearing , no apparent distress ENT-normal hearing, moist oral mucosa , no erythema or congestion in oral mucosa Neck-no neck masses, no thyromegaly , trachea midline Lungs-diminished, Heart-s1 and s2 heard regular , no murmurs Abdomen-soft , non tender Extremities-no pedal edema no erythema ; Plurex catheter removed form left lateral chest wall, sutures placed, no drainage or erythema Neuro-alert and awake oriented, generalized weakness, no focal neurological deficit moves extremities Lab data as noted below. ASSESSMENT & PLAN: LEFT SIDED PLEURAL EFFUSION : ct chest with reaccumulation of pleural effusion of left side appreciate input form CT surgery Plurex catheter placed for recurrent effusion had intermittent drainage Catheter removed on 07/31/16 out pt follow up Cxray in 1-2 weeks hx of chronic smoking 1/2 pk cig a day for 20 yrs no evidence of respiratory distress pleural fluid sent for cytology -no malignant cell seen Clinically stable can be transferred to Skilled rehab sutures on Left chest wall ( Plurex cath insertion sites ) should be taken out in 2-3 days need Follow up chest xray in a week , and CT surgery follow up as out pt in 2-3 weeks RT SIDED PLEURAL EFFUSION S/P rt sided pleurocentesis by Dr Cisneros on 07/29/16 with drainage of approx 600 ml of pleural effusion tolerated procedure well -pleural fluid cytology -no malignant cell seen CT chest post procedure: IMPRESSION: 1. Marked interval decrease in the size of the right pleural effusion status post right-sided thoracentesis. No evidence of pneumothorax 2. Interval placement of a left-sided chest tube. Decreasing left pleural effusion 3. Improving aeration of the lower lobes bilaterally 4. Small pericardial effusion which is increased slightly since the prior study 5. Multiple healing left-sided rib fractures respiratory status improved to baseline stable to be discharged o SNF today ALCOHOL ABUSE /WITHDRAWAL admitted with fall /left sided rib fracture -intoxication developed severe alcohol withdrawal while in hospital required ICU transfer with Intubation for air way protection /Precedex gtt extubated on 07/10/16 currently remains stable , no episode of encephalopathy or confusion LEFT SIDED CHEST PAIN /RIB FRACTURE : due to fall /intoxication developed left side hemothorax Left-sided chest pain, secondary to acute left rib fractures; 4th to 7th ribs as well as left clavicle fracture secondary to accidental fall. cont pain control PT/OT will need SNF-will need referral made to [facility] SEVERE SEPSIS resolved -due to pneumonia completed 14 days of iv Zosyn(last dose 07/20/16). gm positive bacillin in one bottle of blood culture- corynebacterium mostly contaminant ID consulted ACUTE HYPOXEMIC RESPIRATORY FAILURE : due to Pneumonia /hemothorax /alcohol withdrawal s/p chest tube placement , removed on 07/19/[address] surgery extubated respiratory status stable CTA of chest was questionable PE , was on anticoagulation briefly repeat CT on 07/21/16 showed no sign of thrombotic event , IV heparin D/baldo S/P bronchoscopy on 07/26/16 for left lower collapsed lung- Plurex catheter placed for recurrent left sided pleural effusion s/p rt sided thoracentesis with drainage of 600 ml of effusion respiratory status remains stable no hypoxia ; in room air HTN : On hydralazine 25mg tid and amlodipine 10mg daily CONFUSION /METABOLIC ENCEPHALOPATHY : resolve, alert, oriented , conversing appropriately multifactorial due to alcohol withdrawal infection -sepsis , pain meds mental status improved to baseline FULL CODE DVT PROPHYLAXIS scd and teds DISPOSITION [facility] , had PT/OT eval appreciate PT note very poor functional status -significant balance disturbance , unable to use walker appropriately due to left shoulder , chest pain managed to walk only 40 ft , activity limited due to exertion /fatigue not safe to be discharged to [facility] will need SNF placement after medically improved Social service following for DC planning - referral made to [facility] waiting for approval pt is stable to be transferred to SNF Vital Signs: Date Time Temp Pulse Resp B/P Pulse Ox O2 Delivery O2 Flow Rate FiO2 08/02/16 13:39 93 130/80 08/02/16 07:21 36.6 67 20 146/85 95 Room Air 08/02/16 07:18 Room Air 08/02/16 00:35 36.5 74 18 151/87 94 Room Air 08/02/16 00:00 95 Room Air 08/01/16 20:40 95 Room Air 08/01/16 20:35 77 152/83 1/16/17 15:43 Room Air 08/01/16 14:41 36.4 81 20 131/77 95
[2016-08-02 15:29] VITALS: BP 146/82; PULSE 87; TEMP 36.5; O2SAT 97
[2016-08-02] MEDS ORDERED: OXYCODONE/ACETAMINOPHEN 7.5-325 TAB PO PRN (18:00)
[2016-08-02] MEDS: OXYCODONE/ACETAMINOPHEN 7.5-325 TAB PO PRN (18:27)
[2016-08-02 20:33] VITALS: BP 140/80; PULSE 74
[2016-08-03 00:05] VITALS: BP 126/73; PULSE 70; TEMP 37; O2SAT 94
[2016-08-03 07:30] VITALS: BP 135/80; PULSE 67; TEMP 37; O2SAT 94
[2016-08-03] MEDS: AMLODIPINE BESYLATE 5 MG TAB PO SCH (08:26)
[2016-08-03] MEDS: NICOTINE 14 MG/24 HR TDSY TD SCH (08:28)
[2016-08-03] MEDS: ASCORBIC ACID 500 MG TAB PO SCH (08:29)
[2016-08-03] MEDS: PANTOprazole SOD 40 MG TAB PO SCH (08:30)
[2016-08-03] MEDS: THIAMINE HCL 100 MG TAB PO SCH (08:30)
[2016-08-03] MEDS: POLYETHYLENE (MIRALAX) 17 GM PACK PO SCH (08:30)
[2016-08-03] MEDS: DOCUSATE SODIUM 100 MG CAP PO SCH ×2 (09:03→21:02)
[2016-08-03] MEDS: OXYCODONE/ACETAMINOPHEN 7.5-325 TAB PO PRN ×3 (10:42→22:35)
[2016-08-03 13:52] VITALS: BP 140/80; PULSE 78
[2016-08-03 15:54] VITALS: BP 144/87; PULSE 81; TEMP 37.1; O2SAT 94
--- NOTE | 2016-08-03 18:16 | Progress Note ---
Subjective Date of Service: Aug 03, 2016. Subjective Pt evaluation today including: conversation w/ patient, physical exam, lab review, review of studies, review of inpatient medication list Saw/examined the patient in room 275 - doing well today; no problems/issues to note. Problem List Medical Problems: (1) Alcohol dependence Status: Acute (2) Closed left clavicular fracture Status: Acute (3) Fall as cause of accidental injury in residential institution as place of occurrence Status: Acute Review of Systems Constitutional: No chills, No fever Respiratory: No cough, No shortness of breath, No sputum Cardiac: No chest pain Abdomen: No diarrhea, No nausea, No pain, No vomiting Medications Current Inpatient Medications Medications (Trade) Dose Ordered Sig/Jaylene Route Start Time Stop Time Status Last Admin Dose Admin Nicotine (Nicoderm Cq 14MG Patch) 1 patch QAM TD 07/06/16 09:00 08/05/16 08:59 08/03/16 08:28 1 PATCH Miscellaneous (Remove Nicoderm Patch) 1 ea HS N/A 07/06/16 21:00 08/05/16 20:59 08/02/16 20:32 1 EA Miscellaneous (Iv Fluids Completed) 1 ea PRN PRN N/A 07/05/16 23:30 07/05/17 23:29 Acetaminophen (Tylenol Tab) 650 mg Q4H PRN PO 07/06/16 01:30 08/05/16 01:29 07/29/16 17:48 650 MG Miconazole Nitrate (Desenex Powder) 1 appln PRN PRN EXT 07/06/16 12:30 08/05/16 12:29 07/06/16 17:56 1 APPLN Folic Acid (Folvite Tab) 1 mg QAM PO 07/08/16 09:00 08/07/16 08:59 Future hold 08/03/16 08:29 1 MG Ascorbic Acid (Vitamin C Tab) 1,000 mg QAM PO 07/10/16 09:00 08/09/16 08:59 08/03/16 08:29 1,000 MG Lorazepam (Ativan Inj) 1 mg Q2HWA PRN IV 07/11/16 20:00 08/10/16 19:59 07/18/16 15:11 1 MG Pantoprazole Sodium (Protonix Tab) 40 mg QAM PO 07/15/16 09:00 08/14/16 08:59 08/03/16 08:30 40 MG Thiamine HCl (Vitamin B-1 Tab) 100 mg QAM PO 07/16/16 09:00 08/15/16 08:59 08/03/16 08:30 100 MG Clonidine HCl (Catapres Tab) 0.1 mg Q4 PRN PO 07/15/16 15:00 08/14/16 14:59 07/16/16 04:27 0.1 MG Amlodipine Besylate (Norvasc Tab) 10 mg QAM PO 07/16/16 08:30 08/15/16 08:29 08/03/16 08:26 10 MG Hydralazine HCl (Apresoline Tab) 25 mg TID PO 07/17/16 18:00 08/16/16 17:59 08/03/16 13:55 25 MG Docusate Sodium (coLACE CAP) 100 mg BID PO 07/27/16 21:00 08/26/16 20:59 08/03/16 09:03 100 MG Polyethylene (Miralax Powder Packet) 17 gm DAILY PO 07/28/16 09:00 08/27/16 08:59 08/03/16 08:30 17 GM Oxycodone/ Acetaminophen (Percocet 7.5-325MG Tab) 1 tab Q6 PRN PO 08/02/16 18:00 08/16/16 17:59 Oxycodone/ Acetaminophen (Percocet 7.5-325MG Tab) 2 tab Q6 PRN PO 08/02/16 14:30 08/16/16 14:29 08/03/16 16:40 2 TAB Diphenhydramine HCl (Benadryl Cap) 25 mg Q6H PRN PO 08/02/16 19:30 09/01/16 19:29 08/02/16 20:31 25 MG Objective Vital Signs Date Time Temp Pulse Resp B/P Pulse Ox O2 Delivery O2 Flow Rate FiO2 08/03/16 15:54 37.1 81 18 144/87 94 Room Air 08/03/16 13:52 78 140/80 08/03/16 07:30 37.0 67 18 135/80 94 Room Air 08/03/16 06:59 Room Air 08/03/16 00:05 37.0 70 16 126/73 94 Room Air 08/03/16 00:00 Room Air 08/02/16 20:33 74 140/80 08/02/16 19:25 Room Air Physical Exam General Appearance: no apparent distress Respiratory/Chest: lungs clear, normal breath sounds, no respiratory distress, no accessory muscle use Cardiovascular: regular rate, rhythm, no edema, no murmur Abdomen: normal bowel sounds, non tender, soft Extremities: normal inspection, no pedal edema Assessment and Plan LEFT SIDED PLEURAL EFFUSION : clinically stable, denies shortness of breath or chest pain PleurX catheter removed; will need repeat CXR in 1-2 weeks F/U with CTS in 1-2 weeks suture removal today ct chest with reaccumulation of pleural effusion of left side appreciate input form CT surgery Plurex catheter placed for recurrent effusion had intermittent drainage Catheter removed on 07/31/16 out pt follow up Cxray in 1-2 weeks hx of chronic smoking 1/2 pk cig a day for 20 yrs no evidence of respiratory distress pleural fluid sent for cytology -no malignant cell seen Clinically stable can be transferred to Skilled rehab sutures on Left chest wall ( Plurex cath insertion sites ) should be taken out in 2-3 days need Follow up chest xray in a week , and CT surgery follow up as out pt in 2-3 weeks RT SIDED PLEURAL EFFUSION S/P rt sided pleurocentesis by Dr Cisneros on 07/29/16 with drainage of approx 600 ml of pleural effusion tolerated procedure well -pleural fluid cytology -no malignant cell seen CT chest post procedure: IMPRESSION: 1. Marked interval decrease in the size of the right pleural effusion status post right-sided thoracentesis. No evidence of pneumothorax 2. Interval placement of a left-sided chest tube. Decreasing left pleural effusion 3. Improving aeration of the lower lobes bilaterally 4. Small pericardial effusion which is increased slightly since the prior study 5. Multiple healing left-sided rib fractures respiratory status improved to baseline stable to be discharged o SNF today ALCOHOL ABUSE /WITHDRAWAL admitted with fall /left sided rib fracture -intoxication developed severe alcohol withdrawal while in hospital required ICU transfer with Intubation for air way protection /Precedex gtt extubated on 07/10/16 currently remains stable , no episode of encephalopathy or confusion LEFT SIDED CHEST PAIN /RIB FRACTURE : due to fall /intoxication developed left side hemothorax Left-sided chest pain, secondary to acute left rib fractures; 4th to 7th ribs as well as left clavicle fracture secondary to accidental fall. cont pain control PT/OT will need SNF-will need referral made [facility] SEVERE SEPSIS resolved -due to pneumonia completed 14 days of iv Zosyn(last dose 07/20/16). gm positive bacillin in one bottle of blood culture- corynebacterium mostly contaminant ID consulted ACUTE HYPOXEMIC RESPIRATORY FAILURE : due to Pneumonia /hemothorax /alcohol withdrawal s/p chest tube placement , removed on 07/19/[address] surgery extubated respiratory status stable CTA of chest was questionable PE , was on anticoagulation briefly repeat CT on 07/21/16 showed no sign of thrombotic event , IV heparin D/baldo S/P bronchoscopy on 07/26/16 for left lower collapsed lung- Plurex catheter placed for recurrent left sided pleural effusion s/p rt sided thoracentesis with drainage of 600 ml of effusion respiratory status remains stable no hypoxia ; in room air HTN : On hydralazine 25mg tid and amlodipine 10mg daily CONFUSION /METABOLIC ENCEPHALOPATHY : resolve, alert, oriented , conversing appropriately multifactorial due to alcohol withdrawal infection -sepsis , pain meds mental status improved to baseline FULL CODE DVT PROPHYLAXIS scd and teds DISPOSITION Home less , had PT/OT eval appreciate PT note very poor functional status -significant balance disturbance , unable to use walker appropriately due to left shoulder , chest pain managed to walk only 40 ft , activity limited due to exertion /fatigue not safe to be discharged to home [facility] will need SNF placement after medically improved Social service following for DC planning - referral made to [facility] waiting for approval pt is stable to be transferred to SNF
[2016-08-03 23:40] VITALS: BP 138/75; PULSE 74; TEMP 36.8; O2SAT 92
[2016-08-04 06:53] LABS: HEMATOCRIT 29.8 % (42-52); MEAN CELL VOLUME 93.1 fL (80-100); MEAN CORPUSCULAR HEMOGLOBIN 32.5 pg (25-34); MEAN CORPUSCULAR HGB CONC 34.9 g/dl (32-36); MEAN PLATELET VOLUME 8.1 fL (7.4-10.4); PLATELET COUNT 451 K/uL (130-400); WHITE BLOOD COUNT 11.09 K/uL (4.8-10.8)
[2016-08-04 07:20] LABS: BUN/CREATININE RATIO 22.3 (10-20); CALCIUM 8.8 mg/dl (8.5-10.1); CREATININE 0.62 mg/dl (0.60-1.40); MAGNESIUM 1.9 mg/dl (1.8-2.4)
[2016-08-04 07:34] VITALS: BP 144/82; PULSE 70; TEMP 36.9; O2SAT 95
[2016-08-04] MEDS ORDERED: BOOST PLUS VANILLA PO SCH ×2 (08:00)
[2016-08-04] MEDS: DOCUSATE SODIUM 100 MG CAP PO SCH (08:04)
[2016-08-04] MEDS: POLYETHYLENE (MIRALAX) 17 GM PACK PO SCH (08:06)
[2016-08-04] MEDS: AMLODIPINE BESYLATE 5 MG TAB PO SCH (08:07)
[2016-08-04] MEDS: PANTOprazole SOD 40 MG TAB PO SCH (08:07)
[2016-08-04] MEDS: THIAMINE HCL 100 MG TAB PO SCH (08:08)
[2016-08-04] MEDS: ASCORBIC ACID 500 MG TAB PO SCH (08:08)
[2016-08-04] MEDS: NICOTINE 14 MG/24 HR TDSY TD SCH (08:11)
--- NOTE | 2016-08-04 11:44 | Progress Note ---
Subjective Date of Service: Aug 04, 2016. Subjective Pt evaluation today including: conversation w/ patient, physical exam, lab review, review of studies, review of inpatient medication list Saw/examined the patient in room 275-1 He's doing well today Ate breakfast, receiving protein shakes with meals Eager to get out of the hospital Problem List Medical Problems: (1) Alcohol dependence Status: Acute (2) Closed left clavicular fracture Status: Acute (3) Fall as cause of accidental injury in residential institution as place of occurrence Status: Acute Review of Systems Constitutional: + weight loss, No chills, No fever Respiratory: No cough, No shortness of breath, No sputum Cardiac: No chest pain Abdomen: No diarrhea, No nausea, No pain, No vomiting Medications Current Inpatient Medications Medications (Trade) Dose Ordered Sig/Jaylene Route Start Time Stop Time Status Last Admin Dose Admin Nicotine (Nicoderm Cq 14MG Patch) 1 patch QAM TD 07/06/16 09:00 08/05/16 08:59 08/04/16 08:11 1 PATCH Miscellaneous (Remove Nicoderm Patch) 1 ea HS N/A 07/06/16 21:00 08/05/16 20:59 08/03/16 20:58 1 EA Miscellaneous (Iv Fluids Completed) 1 ea PRN PRN N/A 07/05/16 23:30 07/05/17 23:29 Acetaminophen (Tylenol Tab) 650 mg Q4H PRN PO 07/06/16 01:30 08/05/16 01:29 07/29/16 17:48 650 MG Miconazole Nitrate (Desenex Powder) 1 appln PRN PRN EXT 07/06/16 12:30 08/05/16 12:29 07/06/16 17:56 1 APPLN Folic Acid (Folvite Tab) 1 mg QAM PO 07/08/16 09:00 08/07/16 08:59 Future hold 08/04/16 08:05 1 MG Ascorbic Acid (Vitamin C Tab) 1,000 mg QAM PO 07/10/16 09:00 08/09/16 08:59 08/04/16 08:08 1,000 MG Lorazepam (Ativan Inj) 1 mg Q2HWA PRN IV 07/11/16 20:00 08/10/16 19:59 07/18/16 15:11 1 MG Pantoprazole Sodium (Protonix Tab) 40 mg QAM PO 07/15/16 09:00 08/14/16 08:59 08/04/16 08:07 40 MG Thiamine HCl (Vitamin B-1 Tab) 100 mg QAM PO 07/16/16 09:00 08/15/16 08:59 08/04/16 08:08 100 MG Clonidine HCl (Catapres Tab) 0.1 mg Q4 PRN PO 07/15/16 15:00 08/14/16 14:59 07/16/16 04:27 0.1 MG Amlodipine Besylate (Norvasc Tab) 10 mg QAM PO 07/16/16 08:30 08/15/16 08:29 08/04/16 08:07 10 MG Hydralazine HCl (Apresoline Tab) 25 mg TID PO 07/17/16 18:00 08/16/16 17:59 08/04/16 08:03 25 MG Docusate Sodium (coLACE CAP) 100 mg BID PO 07/27/16 21:00 08/26/16 20:59 08/04/16 08:04 100 MG Polyethylene (Miralax Powder Packet) 17 gm DAILY PO 07/28/16 09:00 08/27/16 08:59 08/04/16 08:06 17 GM Oxycodone/ Acetaminophen (Percocet 7.5-325MG Tab) 1 tab Q6 PRN PO 08/02/16 18:00 08/16/16 17:59 08/04/16 09:17 1 TAB Oxycodone/ Acetaminophen (Percocet 7.5-325MG Tab) 2 tab Q6 PRN PO 08/02/16 14:30 08/16/16 14:29 08/03/16 22:35 2 TAB Diphenhydramine HCl (Benadryl Cap) 25 mg Q6H PRN PO 08/02/16 19:30 09/01/16 19:29 08/02/16 20:31 25 MG Enteral Nutritional Formula (Boost Pudding) 1 cup TIDM PO 08/04/16 12:00 09/03/16 11:59 Objective Vital Signs Date Time Temp Pulse Resp B/P Pulse Ox O2 Delivery O2 Flow Rate FiO2 08/04/16 08:00 Room Air 08/04/16 07:34 36.9 70 18 144/82 95 Room Air 08/04/16 00:06 Room Air 08/03/16 23:40 36.8 74 16 138/75 92 Room Air 08/03/16 16:00 Room Air 08/03/16 15:54 37.1 81 18 144/87 94 Room Air 08/03/16 13:52 78 140/80 Physical Exam General Appearance: no apparent distress Respiratory/Chest: lungs clear, normal breath sounds, no respiratory distress, no accessory muscle use Cardiovascular: regular rate, rhythm, no edema, no murmur Abdomen: normal bowel sounds, non tender, soft Laboratory Results Last 24 Hours Test 08/04/16 06:33 White Blood Count 11.09 K/uL Red Blood Count 3.20 M/uL Hemoglobin 10.4 g/dL Hematocrit 29.8 % Mean Corpuscular Volume 93.1 fL Mean Corpuscular Hemoglobin 32.5 pg Mean Corpuscular Hemoglobin Concent 34.9 g/dl RDW Standard Deviation 46.4 fL RDW Coefficient of Variation 13.6 % Platelet Count 451 K/uL Mean Platelet Volume 8.1 fL Sodium Level 135 mmol/L Potassium Level 4.0 mmol/L Chloride Level 99 mmol/L Carbon Dioxide Level 25 mmol/L Anion Gap 11.0 mmol/L Blood Urea Nitrogen 14 mg/dl Creatinine 0.62 mg/dl Est Creatinine Clear Calc Drug Dose 103.9 ml/min Estimated GFR () 132.2 Estimated GFR (Non- 114.1 BUN/Creatinine Ratio 22.3 Random Glucose 87 mg/dl Calcium Level 8.8 mg/dl Magnesium Level 1.9 mg/dl Assessment and Plan LEFT SIDED PLEURAL EFFUSION : 08/04 Doing well; repeat CXR as outpatient outpatient cardiothoracic surgery follow-up will d/c to SNF/rehab as soon as insurance approval goes through 08/03 clinically stable, denies shortness of breath or chest pain PleurX catheter removed; will need repeat CXR in 1-2 weeks F/U with CTS in 1-2 weeks suture removal today ct chest with reaccumulation of pleural effusion of left side appreciate input form CT surgery Plurex catheter placed for recurrent effusion had intermittent drainage Catheter removed on 07/31/16 out pt follow up Cxray in 1-2 weeks hx of chronic smoking 1/2 pk cig a day for 20 yrs no evidence of respiratory distress pleural fluid sent for cytology -no malignant cell seen Clinically stable can be transferred to Skilled rehab sutures on Left chest wall ( Plurex cath insertion sites ) should be taken out in 2-3 days need Follow up chest xray in a week , and CT surgery follow up as out pt in 2-3 weeks RT SIDED PLEURAL EFFUSION S/P rt sided pleurocentesis by Dr Cisneros on 07/29/16 with drainage of approx 600 ml of pleural effusion tolerated procedure well -pleural fluid cytology -no malignant cell seen CT chest post procedure: IMPRESSION: 1. Marked interval decrease in the size of the right pleural effusion status post right-sided thoracentesis. No evidence of pneumothorax 2. Interval placement of a left-sided chest tube. Decreasing left pleural effusion 3. Improving aeration of the lower lobes bilaterally 4. Small pericardial effusion which is increased slightly since the prior study 5. Multiple healing left-sided rib fractures respiratory status improved to baseline stable to be discharged o SNF today ALCOHOL ABUSE /WITHDRAWAL admitted with fall /left sided rib fracture -intoxication developed severe alcohol withdrawal while in hospital required ICU transfer with Intubation for air way protection /Precedex gtt extubated on 07/10/16 currently remains stable , no episode of encephalopathy or confusion LEFT SIDED CHEST PAIN /RIB FRACTURE : due to fall /intoxication developed left side hemothorax Left-sided chest pain, secondary to acute left rib fractures; 4th to 7th ribs as well as left clavicle fracture secondary to accidental fall. cont pain control PT/OT will need SNF-will need [facility] SEVERE SEPSIS resolved -due to pneumonia completed 14 days of iv Zosyn(last dose 07/20/16). gm positive bacillin in one bottle of blood culture- corynebacterium mostly contaminant ID consulted ACUTE HYPOXEMIC RESPIRATORY FAILURE : due to Pneumonia /hemothorax /alcohol withdrawal s/p chest tube placement , removed on 07/19/[address] surgery extubated respiratory status stable CTA of chest was questionable PE , was on anticoagulation briefly repeat CT on 07/21/16 showed no sign of thrombotic event , IV heparin D/baldo S/P bronchoscopy on 07/26/16 for left lower collapsed lung- Plurex catheter placed for recurrent left sided pleural effusion s/p rt sided thoracentesis with drainage of 600 ml of effusion respiratory status remains stable no hypoxia ; in room air HTN : On hydralazine 25mg tid and amlodipine 10mg daily CONFUSION /METABOLIC ENCEPHALOPATHY : resolve, alert, oriented , conversing appropriately multifactorial due to alcohol withdrawal infection -sepsis , pain meds mental status improved to baseline FULL CODE DVT PROPHYLAXIS scd and teds DISPOSITION Home less , had PT/OT eval appreciate PT note very poor functional status -significant balance disturbance , unable to use walker appropriately due to left shoulder , chest pain managed to walk only 40 ft , activity limited due to exertion /fatigue not safe to be discharged to home less skilled nursing will need SNF placement after medically improved Social service following for DC planning - referral made to [facility] waiting for approval pt is stable to be transferred to SNF
[2016-08-04] MEDS ORDERED: BOOST VANILLA PUDDING CUP PO SCH (12:00)
--- NOTE | 2016-08-04 13:37 | Discharge Summary ---
Discharge Summary Admission Date: Jul 06, 2016 at 13:12 Discharge Date: Jul 28, 2016 Discharge Disposition: Personal care Principal Diagnosis: Bilateral Pleural Effusion Sepsis secondary to Pneumonia Medication Reconciliation New Medications: Acetaminophen (Tylenol) 325 Mg Tab 650 MG PO Q8 PRN for Pain or Fever for 30 Days, #180 TAB Amlodipine Besylate (Amlodipine Besylate) 5 Mg Tab 10 MG PO QAM for 10 Days, #20 TAB Ascorbic Acid (Vitamin C) 500 Mg Tab 1000 MG PO QAM for 30 Days, #60 TAB Folic Acid (Folic Acid) 1 Mg Tab 1 MG PO QAM for 30 Days, #30 TAB Hydralazine HCl (Hydralazine HCl) 50 Mg Tab 25 MG PO TID for 30 Days, #45 TAB Nicotine (Nicotine) 1 Patch Tdsy 1 PATCH TD QAM for 30 Days Oxycodone/Acetaminophen 7.5MG/325MG (Endocet 7.5MG/325MG) 1 Tab Tab 1 TAB PO Q6, #30 TAB Pantoprazole (Pantoprazole Sodium) 40 Mg Tab 40 MG PO QAM for 30 Days, #30 TAB Polyethylene (Miralax) 17 Gm Pow 17 GM PO DAILY for 30 Days HOLD FOR LOOSE STOOL Thiamine HCl (Vitamin B-1) 100 Mg Tab 100 MG PO QAM for 30 Days, #30 TAB Admission Information HPI (per Admitting provider): DATE OF ADMISSION: 07/05/2016 TIME: 9:36 p.m. HISTORY OF PRESENT ILLNESS: The patient is a pleasant 50-year-old male, who resides in a homeless detention, history of alcoholism, smoking and chart history of hypertension presenting with left-sided chest pain after a fall which started yesterday. As per patient, he was in his baseline state of health until last night when while sleeping he accidentally fell out of the bed and landed on the floor. Since then has been having progressive left-sided rib pain/chest pain, sharp, moderate to severe. No associated shortness of breath, palpitations, nausea, vomiting, dizziness or headache. No other pain in his body. The pain has been progressive, he has not tried any pain medications at outside hospital yet. His friends urged him to come to the Emergency Room for evaluation. At the ED, the patient was admitted with blood pressure of 166/125, pulse oximetry 92% on room air becoming 87% on room air on 3 liters 95% afebrile. His chest x-ray did show displaced comminuted fractures of the 5th and 6th ribs and also nondisplaced fractures of the left 4th and 7th ribs as well as nondisplaced fracture of the left 3rd rib. His clavicle also showed mildly displaced acute fracture of the distal left clavicle. The patient was given oxycodone in the ER and referred to hospitalist for admission. When I examined the patient, he is resting in bed. He states that his pain is moderate, he denies shortness of breath. No palpitations, nausea, vomiting, diaphoresis, headache, dizziness or change with vision. No other symptoms noted. He states that he drinks alcohol, 10-12 beers a day, last drink yesterday. He denies tremors, hallucinations or anxiety. Also smokes [id number]-day for the past 20 years. Denies any other symptoms. REVIEW OF SYSTEMS: Ten systems reviewed and negative except for the ones mentioned above. PAST MEDICAL HISTORY: The patient does not see any primary care physician. He lives in a homeless detention. He does have chart history of alcoholism, smoking and hypertension. PAST SURGICAL HISTORY: Unremarkable. FAMILY HISTORY: Cancer in both parents. PERSONAL AND SOCIAL HISTORY: He smokes [id number]-[id number]-day for 20 years. He drinks alcohol, 10-12 beers a day, last drink was yesterday. PHYSICAL EXAMINATION: VITAL SIGNS: Blood pressure is 166/125, pulse rate 105, respiratory rate 14, temperature is 37.6, saturating 95% on 3 liters nasal cannula. GENERAL: The patient is awake, alert, oriented x3, not in distress, speaks in sentences. No accessory muscle use. HEAD AND NECK: Atraumatic and normocephalic. Normal pupils. Full EOMs. No icterus. [place] conjunctivae. ENT: Grossly normal. NECK: No JVD, no lymphadenopathy or thyromegaly. HEART: Normal rate. Regular rhythm. Good S1 and S2. No murmurs. LUNGS: Clear breath sounds bilaterally. No rales or wheezes. Positive tenderness on the left 4th and 6th ribs and clavicle area. ABDOMEN: Nondistended, normal bowel sounds, soft, nontender. EXTREMITIES: No lower leg edema, no tenderness. The patient declined examination of his feet. NEUROLOGIC: No gross focal motor or sensory deficits. LABORATORIES: CBC is pending. PRP; sodium 128, potassium 3.5, chloride is 92, carbon dioxide 22, anion gap 14, BUN is 5, creatinine is 0.45, calcium is 8.0. Chest x-ray and shoulder x-ray per my H\T\P. EKG pending. ASSESSMENT AND PLAN: This is a 50-year-old male, who lives in a homeless detention with a history of alcoholism, smoking and hypertension by chart history; presenting with left-sided rib/chest pains after a fall since last night. 1. Left-sided chest pain, likely secondary to acute left rib fractures; 4th to 7th ribs as well as left clavicle fracture secondary to accidental fall. At this time, management will be mainly pain control with p.r.n. Toradol and tramadol. Also will be placed on incentive spirometry, intravenous fluids, physical therapy and occupational therapy evaluation. Orthopedic consultation will be placed for further recommendations. 2. Hypoxia, likely secondary to #1. We will continue pulse oximetry monitoring and incentive spirometry. 3. Hypertension history. Currently hypertensive, likely secondary to pain, which we will monitor. We will place clonidine p.r.n. for now. May need maintenance blood pressure medications if this is still uncontrolled despite for pain control. 4. Alcoholism drinks 10-12 beers per day, last drink was yesterday. Currently, does not exhibit any signs of withdrawal yet. We will follow alcohol withdrawal protocol and the patient is at risk for alcohol withdrawal, so gabapentin protocol tapering doses. He was started on banana bag as well. 5. Hyponatremia of 128, likely secondary to dehydration. We will start banana bag and will proceed with normal saline. We will recheck PRP in 6 hours and further monitor him based on that. 6. Deep venous thrombosis prophylaxis: SCDs for now. 7. Code status: Full code per patient. 8. Disposition: Pending. He resides in a homeless detention. We will consult case management. Hospital Course LEFT SIDED PLEURAL EFFUSION : 08/04 Doing well; repeat CXR as outpatient outpatient cardiothoracic surgery follow-up will d/c to SNF/rehab as soon as insurance approval goes through 08/03 clinically stable, denies shortness of breath or chest pain PleurX catheter removed; will need repeat CXR in 1-2 weeks F/U with CTS in 1-2 weeks suture removal today ct chest with reaccumulation of pleural effusion of left side appreciate input form CT surgery Plurex catheter placed for recurrent effusion had intermittent drainage Catheter removed on 07/31/16 out pt follow up Cxray in 1-2 weeks hx of chronic smoking 1/2 pk cig a day for 20 yrs no evidence of respiratory distress pleural fluid sent for cytology -no malignant cell seen Clinically stable can be transferred to Skilled rehab sutures on Left chest wall ( Plurex cath insertion sites ) should be taken out in 2-3 days need Follow up chest xray in a week , and CT surgery follow up as out pt in 2-3 weeks RT SIDED PLEURAL EFFUSION S/P rt sided pleurocentesis by Dr Cisneros on 07/29/16 with drainage of approx 600 ml of pleural effusion tolerated procedure well -pleural fluid cytology -no malignant cell seen CT chest post procedure: IMPRESSION: 1. Marked interval decrease in the size of the right pleural effusion status post right-sided thoracentesis. No evidence of pneumothorax 2. Interval placement of a left-sided chest tube. Decreasing left pleural effusion 3. Improving aeration of the lower lobes bilaterally 4. Small pericardial effusion which is increased slightly since the prior study 5. Multiple healing left-sided rib fractures respiratory status improved to baseline stable to be discharged o SNF today ALCOHOL ABUSE /WITHDRAWAL admitted with fall /left sided rib fracture -intoxication developed severe alcohol withdrawal while in hospital required ICU transfer with Intubation for air way protection /Precedex gtt extubated on 07/10/16 currently remains stable , no episode of encephalopathy or confusion LEFT SIDED CHEST PAIN /RIB FRACTURE : due to fall /intoxication developed left side hemothorax Left-sided chest pain, secondary to acute left rib fractures; 4th to 7th ribs as well as left clavicle fracture secondary to accidental fall. cont pain control PT/OT will need SNF-will need referral made to [facility] SEVERE SEPSIS resolved -due to pneumonia completed 14 days of iv Zosyn(last dose 07/20/16). gm positive bacillin in one bottle of blood culture- corynebacterium mostly contaminant ID consulted ACUTE HYPOXEMIC RESPIRATORY FAILURE : due to Pneumonia /hemothorax /alcohol withdrawal s/p chest tube placement , removed on 07/19/[address] surgery extubated respiratory status stable CTA of chest was questionable PE , was on anticoagulation briefly repeat CT on 07/21/16 showed no sign of thrombotic event , IV heparin D/baldo S/P bronchoscopy on 07/26/16 for left lower collapsed lung- Plurex catheter placed for recurrent left sided pleural effusion s/p rt sided thoracentesis with drainage of 600 ml of effusion respiratory status remains stable no hypoxia ; in room air HTN : On hydralazine 25mg tid and amlodipine 10mg daily CONFUSION /METABOLIC ENCEPHALOPATHY : resolve, alert, oriented , conversing appropriately multifactorial due to alcohol withdrawal infection -sepsis , pain meds mental status improved to baseline FULL CODE DVT PROPHYLAXIS scd and teds DISPOSITION Home less , had PT/OT eval appreciate PT note very poor functional status -significant balance disturbance , unable to use walker appropriately due to left shoulder , chest pain managed to walk only 40 ft , activity limited due to exertion /fatigue not safe to be discharged to home less detention will need SNF placement after medically improved Social service following for DC planning - referral made to [facility] waiting for approval pt is stable to be transferred to SNF Total time spent on discharge = 45 minutes This includes examination of the patient, discharge planning, medication reconciliation, and communication with other providers. Discharge Instructions FOLLOW UP WITH CARDIO THORACIC SURGERY DR PALACIO IN A WEEK PLEASE CALL OFFICE FOR APPOINTMENT Repeat CXR in 1-2 weeks
[2016-08-04 14:00] VITALS: BP 144/82; PULSE 70; TEMP 36.9; O2SAT 95
[2016-08-04 14:08] VITALS: BP 142/76; PULSE 80
[2016-08-04] MEDS: OXYCODONE/ACETAMINOPHEN 7.5-325 TAB PO PRN (15:11)
[2016-08-04] MEDS ORDERED: APR50 PO (15:26)
[2016-08-04] MEDS ORDERED: NRV5 PO (15:26)
[2016-08-04] MEDS ORDERED: THM100 PO (15:26)
[2016-08-04] MEDS ORDERED: OXYC7.5T62 PO (15:26)
[2016-08-04] MEDS ORDERED: ASCA500 PO (15:26)
[2016-08-04] MEDS ORDERED: FLV1 PO (15:26)
[2016-08-04] MEDS ORDERED: PRT40 PO (15:26)
[2016-08-04] MEDS ORDERED: MRLP17 PO (15:26)
[2016-08-04] MEDS ORDERED: NCDT14 TD (15:26)
[2016-08-04] MEDS ORDERED: TYL325X PO (15:26)
[2017-03-03] MEDS ORDERED: OMEP40CA41 PO (14:49)
[2017-03-08] MEDS ORDERED: NICO14DI5 TD (14:25)
[2017-03-08] MEDS ORDERED: [UNRECOGNIZED DRUG - CODE] PO (14:25)
[2017-03-08] MEDS ORDERED: MRLP17X PO (14:25)
[2017-03-08] MEDS ORDERED: RXC5 PO (14:25)
[2017-03-08] MEDS ORDERED: FERR325T5 PO (14:25)
[2017-03-08] MEDS ORDERED: SENN8.6T7 PO (14:25)
[2017-03-08] MEDS ORDERED: TYLOTC500 PO (14:25)
[2017-03-08] MEDS ORDERED: LVNIS40 SQ (14:25)
[2017-03-08] MEDS ORDERED: SLWMEC PO (14:25)
[2017-03-08] MEDS ORDERED: MULTTAB58 PO (14:33)
[2017-03-14] MEDS ORDERED: ASCO500T16 PO (11:24)
[2017-03-14] MEDS ORDERED: ENOX40IN SQ (11:24)
[2017-03-14] MEDS ORDERED: ONDA4TAB65 PO (11:25)
[2017-03-14] MEDS ORDERED: NICO14DI31 TD (11:25)
[2017-03-14] MEDS ORDERED: POLY335019 PO (11:25)
[2017-03-14] MEDS ORDERED: SENN8.6C PO (11:25)
[2017-03-14] MEDS ORDERED: FERR1TAB13 PO (11:25)
[2017-03-14] MEDS ORDERED: ACET1TAB84 PO (11:25)
[2017-03-14] MEDS ORDERED: THIA100T11 PO (11:25)
[2017-03-14] MEDS ORDERED: FLV1 PO (11:25)
[2017-03-14] MEDS ORDERED: OMEP40CA41 PO (11:25)
[2017-03-14] MEDS ORDERED: MULT-506 PO (11:25)
[2017-03-14] MEDS ORDERED: OXYC1TAB3 PO (11:25)
== END 2016-08-04 16:10 | disposition home or self-care (01) | DRG 871 ==
LOC: ENRESERVTM → ENRESERVDT → CANRESERV → EDBD 18:17 → C.EDD 18:18 → C.3E 21:25 → EDBEDREQSVC 22:27 → OBSVTOIN 07-06 13:12 → C.2T 07-07 02:38 → C.MSICU 07-07 14:08 → C.2T 07-10 17:06 → C.MSICU 07-11 22:23 → C.MED 07-14 13:10
PROVIDERS: ADMIT Internal Medicine; ATTEND Family Medicine
PROC: 0BH17EZ Insertion of Endotracheal Airway into Trachea, Via Natural or Artificial Opening (ICD-10-PCS; principal; 2016-07-07)
PROC: 0W9B30Z Drainage of Left Pleural Cavity with Drainage Device, Percutaneous Approach (ICD-10-PCS; 2016-07-08)
PROC: 0BBB8ZX Excision of Left Lower Lobe Bronchus, Via Natural or Artificial Opening Endoscopic, Diagnostic (ICD-10-PCS; 2016-07-25)
PROC: 0W9B30Z Drainage of Left Pleural Cavity with Drainage Device, Percutaneous Approach (ICD-10-PCS; 2016-07-28)
PROC: 0W9B3ZX Drainage of Left Pleural Cavity, Percutaneous Approach, Diagnostic (ICD-10-PCS; 2016-07-28)
PROC: 0W993ZX Drainage of Right Pleural Cavity, Percutaneous Approach, Diagnostic (ICD-10-PCS; 2016-07-29)
PROC: 0WP9X0Z Removal of Drainage Device from Right Pleural Cavity, External Approach (ICD-10-PCS; 2016-07-31)
DX: A41.9 Sepsis, unspecified organism (principal); J69.0 Pneumonitis due to inhalation of food and vomit; S27.2XXA Traumatic hemopneumothorax, initial encounter; J96.01 Acute respiratory failure with hypoxia; G93.41 Metabolic encephalopathy; J90 Pleural effusion, not elsewhere classified; E87.1 Hypo-osmolality and hyponatremia; S22.42XA Multiple fractures of ribs, left side, initial encounter for closed fracture; F10.231 Alcohol dependence with withdrawal delirium; E46 Unspecified protein-calorie malnutrition; J98.19 Other pulmonary collapse; Z68.1 Body mass index [BMI] 19.9 or less, adult; J98.4 Other disorders of lung; S42.002A Fracture of unspecified part of left clavicle, initial encounter for closed fracture; L08.9 Local infection of the skin and subcutaneous tissue, unspecified; R19.7 Diarrhea, unspecified; F43.21 Adjustment disorder with depressed mood; E87.6 Hypokalemia; I10 Essential (primary) hypertension; F10.20 Alcohol dependence, uncomplicated; F17.210 Nicotine dependence, cigarettes, uncomplicated; Z59.0 Homelessness; W08.XXXA Fall from other furniture, initial encounter; Y92.199 Unspecified place in other specified residential institution as the place of occurrence of the external cause; Y99.8 Other external cause status

== ENCOUNTER 2016-10-09 10:39 | Emergency (ER) | payer OTHER ==
[~2016-10-09] VITALS: Ht 180.3 cm; Wt 62.9 kg
[~2016-10-09 10:39] MED LIST changes: +APR50 PO; +ASCA500 PO; +FLV1 PO; +MRLP17 PO; +NCDT14 TD; +NRV5 PO; +OXYC7.5T62 PO; +PRT40 PO; +THM100 PO; +TYL325X PO; -[UNRECOGNIZED DRUG - MIXTURE] PO
[2016-10-09 10:51] VITALS: TEMP 36.7; Ht 180.3 cm; Wt 62.9 kg
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
[2016-10-09 12:22] VITALS: BP 147/91; PULSE 81; O2SAT 95
[2017-02-14] MEDS ORDERED: THM100 PO (14:59)
[2017-02-14] MEDS ORDERED: SLWMEC PO (14:59)
[2017-02-14] MEDS ORDERED: NICO21DI4 TD (14:59)
[2017-02-14] MEDS ORDERED: FLV1 PO (14:59)
[2017-03-03] MEDS ORDERED: OMEP40CA41 PO (14:49)
[2017-03-08] MEDS ORDERED: [UNRECOGNIZED DRUG - CODE] PO (14:25)
[2017-03-08] MEDS ORDERED: MRLP17X PO (14:25)
[2017-03-08] MEDS ORDERED: LVNIS40 SQ (14:25)
[2017-03-08] MEDS ORDERED: RXC5 PO (14:25)
[2017-03-08] MEDS ORDERED: FERR325T5 PO (14:25)
[2017-03-08] MEDS ORDERED: SLWMEC PO (14:25)
[2017-03-08] MEDS ORDERED: SENN8.6T7 PO (14:25)
[2017-03-08] MEDS ORDERED: TYLOTC500 PO (14:25)
[2017-03-08] MEDS ORDERED: NICO14DI5 TD (14:25)
[2017-03-08] MEDS ORDERED: MULTTAB58 PO (14:33)
[2017-03-14] MEDS ORDERED: ENOX40IN SQ (11:24)
[2017-03-14] MEDS ORDERED: ASCO500T16 PO (11:24)
[2017-03-14] MEDS ORDERED: ONDA4TAB65 PO (11:25)
[2017-03-14] MEDS ORDERED: THIA100T11 PO (11:25)
[2017-03-14] MEDS ORDERED: ACET1TAB84 PO (11:25)
[2017-03-14] MEDS ORDERED: MULT-506 PO (11:25)
[2017-03-14] MEDS ORDERED: OMEP40CA41 PO (11:25)
[2017-03-14] MEDS ORDERED: FLV1 PO (11:25)
[2017-03-14] MEDS ORDERED: SENN8.6C PO (11:25)
[2017-03-14] MEDS ORDERED: POLY335019 PO (11:25)
[2017-03-14] MEDS ORDERED: FERR1TAB13 PO (11:25)
[2017-03-14] MEDS ORDERED: NICO14DI31 TD (11:25)
[2017-03-14] MEDS ORDERED: OXYC1TAB3 PO (11:25)
== END 2016-10-09 12:33 | disposition home or self-care (01) ==
LOC: EDBD 10:39 → C.EDB 10:40
DX: S42.402A Unspecified fracture of lower end of left humerus, initial encounter for closed fracture (principal); S60.511A Abrasion of right hand, initial encounter; Y92.89 Other specified places as the place of occurrence of the external cause; Y04.0XXA Assault by unarmed brawl or fight, initial encounter; I10 Essential (primary) hypertension; F17.210 Nicotine dependence, cigarettes, uncomplicated

== ENCOUNTER 2017-02-08 10:44 | Inpatient (IN) | payer OTHER ==
[~2017-02-08] VITALS: Ht 180.3 cm; Wt 52.3 kg
--- NOTE | 2017-02-08 11:37 | EMERGENCY ROOM VISIT NOTE ---
History Report prepared by Renetta: Josh Rebolledo Under the Supervision of: Dr. Jeremie Amanda M.D. First contact with patient: 11:29 Chief Complaint: ILLNESS Stated Complaint: WEAKNESS/VOMIT History of Present Illness The patient is a 51 year old male who presents to the Emergency Room with complaints of constant weakness to the legs beginning yesterday. Nursing staff states the [place] was [place] at a park on bench cold and shaky. They report that the police were called and brought to the ED. The patient states that he was there sleeping there for the night because he is homeless. He complains of his legs being weak, and that he fell four times after leaving the library. The patient is oriented to person and place but not time and date. He denies hitting his head, loss of consciousness, and admits to having several drinks overnight. Source of History: patient, nursing staff Onset: yesterday Position: leg (bilateral) Quality: other (weakness) Timing: constant Associated Symptoms: No LOC Note: Associated symptoms: falling Denies: hitting his head and alcohol use Review of Systems See HPI for pertinent positives & negatives. A total of 10 systems reviewed and were otherwise negative. Past Medical & Surgical Medical Problems: (1) Alcoh Dep Nec/Nos-Unspec (2) Chest pain (3) Fever (4) Fracture Calcaneus-Close (5) Hypertension Nos (6) Hypoxia (7) Pleural effusion (8) Sprain Of Ankle Nos Family History FHx: cancer Social History Smoking Status: Current Every Day Smoker Alcohol Use: heavy Marital Status: single Housing Status: other Occupation Status: unemployed Current/Historical Medications No Active Prescriptions or Reported Meds Allergies Coded Allergies: Penicillins (Verified Adverse Reaction, Mild, TIRED, 02/08/17) Physical Exam Vital Signs Date Time Temp Pulse Resp B/P (MAP) Pulse Ox O2 Delivery O2 Flow Rate FiO2 02/08/17 15:32 89 14 144/86 100 Room Air 02/08/17 15:12 87 02/08/17 15:00 100 Room Air 02/08/17 14:32 83 13 156/85 100 Room Air 02/08/17 14:00 86 13 145/87 93 Room Air 02/08/17 12:57 88 15 132/83 99 Room Air 02/08/17 11:22 88 02/08/17 10:45 36.6 103 17 132/96 99 Room Air Physical Exam GENERAL: Patient is unkempt, malodorous, not agreeable with asking questions, and cachetic. Difficult to tell if alcohol is involved secondary to the malodorous smell. HEENT: No acute trauma, normocephalic atraumatic, mucous membranes moist, no nasal congestion, injected conjunctiva. NECK: No stridor, no adenopathy, no meningismus, trachea is midline. LUNGS: No dyspnea. Clear to auscultation and equal bilaterally. No wheeze, no rhonchi. HEART: Regular rate and rhythm. No murmurs, rubs, gallops appreciated. ABDOMEN: Soft, nontender, bowel sounds positive, no masses appreciated, no peritonitis. BACK: No midline tenderness, no CVA tenderness EXTREMITIES: Normal motion all extremities, no cyanosis, no edema. NEUROLOGIC: Alert and oriented, no acute motor or sensory deficits, no focal weakness, cranial nerves grossly intact. SKIN: No rash, no jaundice, no diaphoresis. Medical Decision & Procedures ER Provider Diagnostic Interpretation: X ray results are stated below per my interpretation and the radiologist's interpretation. CHEST ONE VIEW PORTABLE CLINICAL HISTORY: Leukocytosis. Weakness. COMPARISON STUDY: Chest radiograph August 01, 2016. FINDINGS: There is no pneumothorax. There are old bilateral rib fractures. No pleural effusion is present. A nipple shadow projects of the left lower lung. There is no consolidation to suggest pneumonia and there is no evidence of pulmonary edema. Cardiomediastinal silhouette is stable. Prominence for the contour for the ascending aorta is unchanged. IMPRESSION: No acute cardiopulmonary findings. Electronically signed by: Kalin Roberts M.D. 02/08/2017 3:54 PM Dictated Date/Time: 02/08/2017 3:51 PM Laboratory Results Test 02/08/17 13:06 02/08/17 13:42 Ethyl Alcohol mg/dL < 3.0 mg/dl (0-3) Immature Granulocyte % (Auto) 0.4 % White Blood Count 14.14 K/uL (4.8-10.8) Red Blood Count 3.51 M/uL (4.7-6.1) Hemoglobin 11.8 g/dL (14.0-18.0) Hematocrit 31.1 % (42-52) Mean Corpuscular Volume 88.6 fL (80-100) Mean Corpuscular Hemoglobin 33.6 pg (25-34) Mean Corpuscular Hemoglobin Concent 37.9 g/dl (32-36) Platelet Count 112 K/uL (130-400) Mean Platelet Volume 10.5 fL (7.4-10.4) Neutrophils (%) (Auto) 87.7 % Lymphocytes (%) (Auto) 2.0 % Monocytes (%) (Auto) 9.8 % Eosinophils (%) (Auto) 0.0 % Basophils (%) (Auto) 0.1 % Neutrophils # (Auto) 12.41 K/uL (1.4-6.5) Lymphocytes # (Auto) 0.28 K/uL (1.2-3.4) Monocytes # (Auto) 1.38 K/uL (0.11-0.59) Eosinophils # (Auto) 0.00 K/uL (0-0.5) Basophils # (Auto) 0.01 K/uL (0-0.2) Immature Granulocyte # (Auto) 0.06 K/uL (0.00-0.02) Red Blood Cell Morphology Unremarkable Magnesium Level 2.0 mg/dl (1.8-2.4) Direct Bilirubin 0.4 mg/dl (0-0.2) Laboratory results as reviewed by me. Medications Administered Medications (Trade) Dose Ordered Sig/Jaylene Route Start Time Stop Time Status Last Admin Dose Admin Multivitamins 10 ml/Thiamine HCl 100 mg/Folic Acid 1 mg/Sodium Chloride 1,011.2 ml @ 500 mls/ hr Q2H2M ONCE IV 02/08/17 12:00 02/08/17 14:01 DC 02/08/17 12:57 500 MLS/HR Potassium Chloride (Kcl 10 Meq / Wtr) 10 meq NOW STAT IV 02/08/17 15:25 02/08/17 15:26 DC 02/08/17 15:31 10 MEQ ECG Indication: weakness Rate (beats per minute): 94 Rhythm: sinus rhythm (appears to be) Findings: other (poor base-line, not able to evaluate further) ED Course 1129: The patient was evaluated in room B03B. A complete history and physical exam was performed. 1200: Ordered Multivitamins 10 ml/Thiamine HCl 100 mg/Folic Acid 1 mg/Sodium Chloride 1,011.2 ml @ 500 mls/hr IV 1355: The patient's labs were retaken due to lab contemplations. 1502: I updated the patient of his exam findings. His electrolytes are abnormal , and he will need to be evaluated for further treatment. 1522: I discussed the patient's case with Christine Ketaing Hospitalist. She states that the patient will be further evaluated once he receives a dose of Potassium Chloride. 1525: Ordered Potassium Chloride 10meq IV Medical Decision Differential: Sepsis, Infectious (UTI/Pneumonia/Meningitis/etc), Metabolic/ Electrolyte Abnormality, Cardiac, Hepatic, Endocrine, Toxicologic, Neurologic, amongst other pathologies entertained. 51 yr old homeless man arrives after being found weak laying on bench [place]. States Etoh overnight. He severely malnourished, unkempt and unhealthy appearing. I ordered IV Banana Bag for initial hydration given concerns of etoh and poor diet. Multiple issues initially getting IV, then issues with lab running blood. Several hours passed prior to ability to get labs back. Once returned it was evident that patient with many lab abnormalities at which time hospitalist consulted. Once banana bag done he was given initial 10meq K, though with tenuous IV status do not want to overdo this. Consults Time Called: 1518 Consulting Physician: Christine Keating Hospitalist Returned Call: 1522 I discussed the patient's case with Christine Keating Hospitalist. She states that the patient must be administered potassium before he will be evaluated for further treatment. Impression Primary Impression: Generalized weakness Additional Impressions: Hypokalemia Hypophosphatemia Malnutrition Homeless Scribe Attestation The scribe's documentation has been prepared under my direction and personally reviewed by me in its entirety. I confirm that the note above accurately reflects all work, treatment, procedures, and medical decision making performed by me. Departure Information Dispostion Being Evaluated By Hospitalist Prescriptions No Active Prescriptions or Reported Meds Referrals No Doctor, Assigned (PCP) Patient Instructions [facility] Problem Qualifiers
[2017-02-08] MEDS ORDERED: MULTI-VITAMIN INFUSION INJ 10 ML, THIAMINE HCL INJ 100 MG, FoLIC ACID INJ 1 MG in SODIU... IV ONE (12:00)
[2017-02-08 14:21] LABS: ALKALINE PHOSPHATASE 110 U/L (45-117); ALT/SGPT 49 U/L (12-78); AST/SGOT 62 U/L (15-37); BLOOD UREA NITROGEN 5 mg/dl (7-18); BUN/CREATININE RATIO 6.9 (10-20); CALCIUM 7.6 mg/dl (8.5-10.1); CARBON DIOXIDE 16 mmol/L (21-32); CHLORIDE 79 mmol/L (98-107); CREATININE 0.74 mg/dl (0.60-1.40); GLUCOSE 79 mg/dl (70-99); POTASSIUM 1.9 mmol/L (3.5-5.1); SODIUM 123 mmol/L (136-145)
[2017-02-08 14:26] LABS: PHOSPHORUS 1.2 mg/dl (2.5-4.9)
[2017-02-08 14:44] LABS: HEMATOCRIT 31.1 % (42-52); MEAN CELL VOLUME 88.6 fL (80-100); MEAN CORPUSCULAR HEMOGLOBIN 33.6 pg (25-34); MEAN CORPUSCULAR HGB CONC 37.9 g/dl (32-36); MEAN PLATELET VOLUME 10.5 fL (7.4-10.4); PLATELET COUNT 112 K/uL (130-400); RED BLOOD COUNT 3.51 M/uL (4.7-6.1); WHITE BLOOD COUNT 14.14 K/uL (4.8-10.8)
[2017-02-08 14:45] LABS: BASO % 0.1 %; BASO ABS # 0.01 K/uL (0-0.2); COMPLETE YES; IG% 0.4 %; LYMPH ABS # 0.28 K/uL (1.2-3.4); MONO % 9.8 %; NEUT % 87.7 %
[2017-02-08] MEDS ORDERED: POTASSIUM CHLORIDE 10 MEQ / 100ML WTR IV STA (15:25)
[2017-02-08] MEDS ORDERED: POTASSIUM PHOS 3 MMOL/1 ML INFUSION IV STA (15:25)
[2017-02-08] MEDS ORDERED: POTASSIUM CHLORIDE 20 MEQ TABCR PO SCH (15:30)
[2017-02-08] MEDS ORDERED: POLYETHYLENE (MIRALAX) 17 GM PACK PO PRN (15:45)
[2017-02-08] MEDS ORDERED: MAGNESIUM HYDROXIDE SUSP 30 ML UDC PO PRN (15:45)
[2017-02-08] MEDS ORDERED: ONDANSETRON INJ 2 MG/ML 2 ML VIAL IV PRN (15:45)
[2017-02-08] MEDS ORDERED: LORAZEPAM 2 MG/ML 1 ML VIAL IV PRN (15:45)
[2017-02-08] MEDS ORDERED: ACETAMINOPHEN 325 MG TAB PO PRN (15:45)
[2017-02-08] MEDS ORDERED: LORAZEPAM 1 MG TAB PO PRN (15:45)
--- NOTE | 2017-02-08 15:55 | DIAGNOSTIC IMAGING REPORT ---
CHEST ONE VIEW PORTABLE CLINICAL HISTORY: Leukocytosis. Weakness. COMPARISON STUDY: Chest radiograph August 01, 2016. FINDINGS: There is no pneumothorax. There are old bilateral rib fractures. No pleural effusion is present. A nipple shadow projects of the left lower lung. There is no consolidation to suggest pneumonia and there is no evidence of pulmonary edema. Cardiomediastinal silhouette is stable. Prominence for the contour for the ascending aorta is unchanged. IMPRESSION: No acute cardiopulmonary findings. Electronically signed by: Kalin Roberts M.D. 02/08/2017 3:54 PM Dictated Date/Time: 02/08/2017 3:51 PM
[2017-02-08] MEDS ORDERED: POTASSIUM CHLORIDE 10 MEQ TABCR ONE (16:08)
[2017-02-08] MEDS ORDERED: POTASSIUM PHOSPHATE INJ 30 MMOL in SODIUM CHLORIDE 0.9% 500ML 500 ML IV STA (16:09)
--- NOTE | 2017-02-08 16:38 | History and Physical ---
History & Physical Date & Time of Service: Feb 08, 2017 at 16:38 Chief Complaint: Weakness/Vomit Primary Care Physician: No Doctor, Assigned History of Present Illness Source: patient HISTORY OF PRESENT ILLNESS: The patient is a pleasant 51-year-old male, who resides in a homeless group home, history of alcoholism, smoking and chart history of hypertension presenting with generalized weakness. Per patient, he had 2-3 beers 2 days ago. [place] weak, legs giving away and thus came to ER. Poor historian, unable to get much history from him. Denies any fever, chills, cough, chest pain, SOB, nausea, vomiting, diarrhea, localized weakness in extremities, abdominal pain. In ED, he is hemodynamically stable. Labs - K 1.9, Phosphorus- 1.2, Na 123. IV NS x 1 bag, Alcohol level < 3. Received a bag of IV banana bag x 1 in ER. Will admit him for severe electrolyte abnormalities. Past Medical/Surgical History Medical Problems: (1) Alcoh Dep Nec/Nos-Unspec Status: Resolved (2) Fracture Calcaneus-Close Status: Resolved (3) Hypertension Nos Status: Chronic (4) Sprain Of Ankle Nos Status: Resolved Family History FHx: cancer Social History Smoking Status: Current Every Day Smoker Marital Status: single Housing status: other Occupational Status: unemployed Multi-Drug Resistant Organisms History of MDRO: No Allergies Coded Allergies: Penicillins (Verified Adverse Reaction, Mild, TIRED, 02/08/17) Home Medications No Active Prescriptions or Reported Meds Review of Systems Constitutional: No fever, No chills Eyes: No worsening of vision ENT: No hearing loss, No nasal symptoms Respiratory: No cough, No sputum, No wheezing, No shortness of breath Cardiovascular: No chest pain, No edema Abdomen: No pain, No nausea, No vomiting, No diarrhea Genitourinary - Male: No hematuria, No dysuria Neurologic: + weakness Endocrine: + fatigue Integumentary: No rash Physical Exam Vital Signs Date Time Temp Pulse Resp B/P (MAP) Pulse Ox O2 Delivery O2 Flow Rate FiO2 02/08/17 16:03 94 14 133/73 100 Room Air 02/08/17 15:32 89 14 144/86 100 Room Air 02/08/17 15:12 87 02/08/17 14:32 83 13 156/85 100 Room Air 02/08/17 14:00 86 13 145/87 93 Room Air 02/08/17 12:57 88 15 132/83 99 Room Air 02/08/17 11:22 88 02/08/17 10:45 36.6 103 17 132/96 99 Room Air General Appearance: no apparent distress, + pertinent finding (dissheveled) Head: normocephalic, atraumatic Eyes: PERRL ENT: hearing grossly normal Neck: supple, no JVD Respiratory/Chest: chest non-tender, lungs clear, no respiratory distress, no accessory muscle use, + decreased breath sounds Cardiovascular: regular rate, rhythm, no murmur Abdomen/GI: normal bowel sounds, non tender, soft Extremities/Musculoskelatal: no calf tenderness, non-tender Neurologic/Psych: no motor/sensory deficits, alert, oriented x 3 Diagnostics Laboratory Results Results Past 24 Hours Test 02/08/17 13:06 02/08/17 13:42 Range/Units Ethyl Alcohol mg/dL < 3.0 0-3 mg/dl White Blood Count 14.14 4.8-10.8 K/uL Red Blood Count 3.51 4.7-6.1 M/uL Hemoglobin 11.8 14.0-18.0 g/dL Hematocrit 31.1 42-52 % Mean Corpuscular Volume 88.6 80-100 fL Mean Corpuscular Hemoglobin 33.6 25-34 pg Mean Corpuscular Hemoglobin Concent 37.9 32-36 g/dl Platelet Count 112 130-400 K/uL Mean Platelet Volume 10.5 7.4-10.4 fL Neutrophils (%) (Auto) 87.7 % Lymphocytes (%) (Auto) 2.0 % Monocytes (%) (Auto) 9.8 % Eosinophils (%) (Auto) 0.0 % Basophils (%) (Auto) 0.1 % Neutrophils # (Auto) 12.41 1.4-6.5 K/uL Lymphocytes # (Auto) 0.28 1.2-3.4 K/uL Monocytes # (Auto) 1.38 0.11-0.59 K/uL Eosinophils # (Auto) 0.00 0-0.5 K/uL Basophils # (Auto) 0.01 0-0.2 K/uL RDW Standard Deviation 40.3 36.4-46.3 fL RDW Coefficient of Variation 12.5 11.5-14.5 % Immature Granulocyte % (Auto) 0.4 % Immature Granulocyte # (Auto) 0.06 0.00-0.02 K/uL Red Blood Cell Morphology Unremarkable Sodium Level 123 136-145 mmol/L Potassium Level 1.9 3.5-5.1 mmol/L Chloride Level 79 98-107 mmol/L Carbon Dioxide Level 16 21-32 mmol/L Anion Gap 28.0 3-11 mmol/L Blood Urea Nitrogen 5 7-18 mg/dl Creatinine 0.74 0.60-1.40 mg/dl Est Creatinine Clear Calc Drug Dose 90.8 ml/min Estimated GFR () 122.9 Estimated GFR (Non- 106.1 BUN/Creatinine Ratio 6.9 10-20 Random Glucose 79 70-99 mg/dl Calcium Level 7.6 8.5-10.1 mg/dl Phosphorus Level 1.2 2.5-4.9 mg/dl Magnesium Level 2.0 1.8-2.4 mg/dl Total Bilirubin 1.1 0.2-1 mg/dl Direct Bilirubin 0.4 0-0.2 mg/dl Aspartate Amino Transf (AST/SGOT) 62 15-37 U/L Alanine Aminotransferase (ALT/SGPT) 49 12-78 U/L Alkaline Phosphatase 110 45-117 U/L Total Creatine Kinase 103 39-308 U/L Troponin I < 0.015 0-0.045 ng/ml Total Protein 6.3 6.4-8.2 gm/dl Albumin 2.9 3.4-5.0 gm/dl Impression Assessment and Plan Patient who is a homeless, known case of alcoholism, smoking, comes to ER with c /o generalized weakness, difficulty walking, found to have severe electrolyte abnormalities. ASSESSMENT AND PLAN: SEVERE ELECTROLYTE ABNORMALITIES- Hyponatremia, Hypokalemia, Hypophosphatemia Likely in setting of alcoholism, inadequate nutrition, lack of self care, homeless situation -Replace K- IV KCL x 10 meq in ER, will give total of 80 meq in next 3 hours, repeat BMP at 7 PM -Replace Phosphorus with K phos 30 meq x 1 dose -IV NS with 20 meq KCL at 125 cc for hypovolemic hyponatremia. Urine / serum osmolality, Na ordered -Work up- Mg- Normal, Urine/Serum, osmolality, Na pending, TSH- ordered -Nephrology consulted. Discussed case with Dr Rhonda Nowak ELEVATED ANION GAP Likely secondary to alcoholic ketoacidosis -Lactic acid will be ordered -IV Fluids as above -Monitor LEUCOCYTOSIS No clear localized signs of infection -No indication of antibiotics without any signs of infection/sepsis -Will monitor closely ALCOHOLISM Known alcoholic - drinks 2-3 beers daily. Last one 2 days ago and alcohol levels normal now -Will have to monitor for alcohol withdrawal. Last admission 07/2016- had to be in ICU for DTs and intubated -IV banana bag -Alcohol withdrawal protocol - Gabapentin and Lorezepam PRN -Monitor closely MALNUTRITION Secondary to lack of personal care/adequate nutrition in setting of homelessness -BMI 16.9 DVT PROPHYLAXIS scds/teds re: thrombocytopenia DISPOSITION Admit to telemetry- inpatient admission Level of Care Telemetry Resuscitation Status FULL RESUSCITATION VTE Prophylaxis VTE Risk Assessment Done? Y/N: Yes Risk Level: Moderate Given or contraindicated: Enoxaparin (Lovenox)SQ Social Service Consult Homeless
[2017-02-08 17:23] VITALS: BP 137/75; PULSE 85; TEMP 37.3; Ht 180.3 cm; Wt 52.3 kg
[2017-02-08] MEDS ORDERED: GABAPENTIN 1200MG LOADING DOSE PO ONE (18:00)
[2017-02-08] MEDS ORDERED: GABAPENTIN 600 MG TAB PO ONE (18:00)
--- NOTE | 2017-02-08 18:38 | Consultant Recommendations ---
Superintendent Compressor Stations Recommendations Date of Service Feb 08, 2017. Superintendent Compressor Stations Recommendations 51/M alcoholic with cachexia admitted with weakness related with severe electrolyte abnormality. Bp is fine. Given history above will have to assume this is nutritional unless proved otherwise. reviewed labs. Plan: 1 serial check of the BMP brandon K. 2 lower NS with 20 k.cl to 75/hr. 3. K.cl 40 meq po now and iv plus the k.cl 30 mmol. 4 repeat BMP at 8 PM--call me with result. 5. He will need a lot o K.cl as the K deficit is likely more than 300 meq but could be even more. 6 Advice communicated with nurse and I will follow labs overnight. Venu Manzano
[2017-02-08] MEDS ORDERED: NURSING VERBAL MED ORDER ONE ×2 (18:45→21:30)
[2017-02-08] MEDS: NSS + 20MEQ KCL 1000ML 1,000 ML IV SCH (18:51)
[2017-02-08] MEDS: POTASSIUM CHLORIDE PWD 20 MEQ PACK PO SCH ×4 (18:51→23:29)
[2017-02-08] MEDS: THIAMINE HCL 100 MG TAB PO SCH (20:32)
[2017-02-08 20:35] VITALS: BP 150/70; PULSE 88; TEMP 37.2; O2SAT 97
[2017-02-08 20:54] LABS: BUN/CREATININE RATIO 4.7 (10-20); CALCIUM 7.4 mg/dl (8.5-10.1); CREATININE 0.88 mg/dl (0.60-1.40)
[2017-02-08 20:59] LABS: POTASSIUM 2.4 mmol/L (3.5-5.1)
[2017-02-08] MEDS: GABAPENTIN 600MG Q6H DOSE PO SCH (23:29)
[2017-02-09] VITALS (8 sets, daily range): BP systolic 106–148; BP diastolic 73–87; PULSE 80–92; TEMP 37–38.1; O2SAT 93–100
[2017-02-09] MEDS: POTASSIUM CHLORIDE PWD 20 MEQ PACK PO SCH ×6 (00:15→22:16)
[2017-02-09 04:28] LABS: HEMATOCRIT 32.2 % (42-52); MEAN CELL VOLUME 88.5 fL (80-100); MEAN CORPUSCULAR HEMOGLOBIN 32.4 pg (25-34); MEAN CORPUSCULAR HGB CONC 36.6 g/dl (32-36); MEAN PLATELET VOLUME 10.3 fL (7.4-10.4); PLATELET COUNT 127 K/uL (130-400); RED BLOOD COUNT 3.64 M/uL (4.7-6.1); WHITE BLOOD COUNT 12.02 K/uL (4.8-10.8)
[2017-02-09 04:55] LABS: ALB/GLOB RATIO 0.9 (0.9-2); BUN/CREATININE RATIO 4.4 (10-20); CALCIUM 7.5 mg/dl (8.5-10.1); CREATININE 0.82 mg/dl (0.60-1.40); POTASSIUM 3.9 mmol/L (3.5-5.1)
[2017-02-09 04:58] LABS: PHOSPHORUS 0.4 mg/dl (2.5-4.9)
[2017-02-09] MEDS ORDERED: POTASSIUM PHOS 3 MMOL/1 ML INFUSION IV STA (05:07)
[2017-02-09] MEDS ORDERED: POTASSIUM PHOSPHATE INJ 21 MMOL in SODIUM CHLORIDE 0.9% 500ML 500 ML IV ONE (05:30)
[2017-02-09] MEDS: GABAPENTIN 600MG Q6H DOSE PO SCH (08:45)
[2017-02-09] MEDS: NSS + 20MEQ KCL 1000ML 1,000 ML IV SCH (08:45)
[2017-02-09] MEDS: POT PHOSPHATE MONOBASIC W/ SOD TAB PO SCH ×5 (08:46→22:16)
[2017-02-09] MEDS: MULTIVITAMIN TAB PO SCH (08:46)
--- NOTE | 2017-02-09 09:12 | Progress Note ---
Internal Med Progress Note Date of Service: Feb 09, 2017. Provider Documentation: SUBJECTIVE: very hard of hearing offers no complain complains of generalized weakness no sign of agitation /alcohol withdrawal OBJECTIVE: Vital Signs-as noted below Exam: General-cachetic , disheveled Eyes-sclera non icteric Lungs-CTA Heart-regular Abdomen-soft, scaphoid Extremities-no rash or deformity , no edema Neuro-no focal deficit , hard of hearing Lab data as noted below. ASSESSMENT & PLAN: SEVERE ELECTROLYTE ABNORMALITIES- Hyponatremia, Hypokalemia, Hypophosphatemia Likely in setting of alcoholism, inadequate nutrition, lack of self care, homeless situation -replaced aggressively - -Nephrology consulted.appreciate input ordered for both PO and IV replacement follow lyes closely GENERALIZED WEAKNESS : due to above correct lytes PT/OT eval requested EKG CHANGED : possible due to electrolyte derangements denies of any chest pain or SOB serial Cardiac markers ordered monitor in tele repeat EKG in AM ELEVATED ANION GAP Likely secondary to alcoholic ketoacidosis -Lactic acid WNL -IV Fluids as above -improved Gap 24-> 12 LEUCOCYTOSIS No clear localized signs of infection possible from dehydration WBC improving with IVF -No indication of antibiotics without any signs of infection/sepsis HX OF ALCOHOLISM Known alcoholic - drinks 2-3 beers daily. Last one 2 days ago and alcohol levels normal now -cont to monitor for alcohol withdrawal. Last admission 07/2016- had to be in ICU for DTs and intubated -IV banana bag given in ER -Alcohol withdrawal protocol - Gabapentin and Lorezepam PRN -Monitor closely/cont Tele monitoring SEVERE PROTEIN CALORIE MALNUTRITION Secondary to alcohol abuse /lack of personal care/adequate nutrition in setting of homelessness -BMI 16.9 -dietary consult requested for supplement DVT PROPHYLAXIS scds/teds re: thrombocytopenia DISPOSITION cont tele monitoring Home less Discussed regarding possible correction for more support PT/OT ; social service consulted Vital Signs: Date Time Temp Pulse Resp B/P (MAP) Pulse Ox O2 Delivery O2 Flow Rate FiO2 02/09/17 08:14 37.6 84 18 122/77 (92) 100 Room Air 02/09/17 04:10 100 Room Air 02/09/17 04:00 37.0 92 16 115/77 (90) 93 Room Air 02/09/17 00:00 37.1 80 14 111/75 (87) 100 Room Air 02/09/17 00:00 100 Room Air 02/08/17 20:35 37.2 88 16 150/70 (96) 97 Room Air 02/08/17 17:23 37.3 85 18 137/75 Room Air 02/08/17 16:35 94 16 144/86 96 Room Air 02/08/17 16:03 94 14 133/73 100 Room Air 02/08/17 15:32 89 14 144/86 100 Room Air 02/08/17 15:12 87 02/08/17 15:00 100 Room Air 02/08/17 14:32 83 13 156/85 100 Room Air 02/08/17 14:00 86 13 145/87 93 Room Air 02/08/17 12:57 88 15 132/83 99 Room Air 02/08/17 11:22 88 02/08/17 10:45 36.6 103 17 132/96 99 Room Air Lab Results: Results Past 24 Hours Test 02/08/17 13:06 02/08/17 13:42 02/08/17 16:30 02/08/17 20:16 Range/Units Ethyl Alcohol mg/dL < 3.0 0-3 mg/dl White Blood Count 14.14 4.8-10.8 K/uL Red Blood Count 3.51 4.7-6.1 M/uL Hemoglobin 11.8 14.0-18.0 g/dL Hematocrit 31.1 42-52 % Mean Corpuscular Volume 88.6 80-100 fL Mean Corpuscular Hemoglobin 33.6 25-34 pg Mean Corpuscular Hemoglobin Concent 37.9 32-36 g/dl Platelet Count 112 130-400 K/uL Mean Platelet Volume 10.5 7.4-10.4 fL Neutrophils (%) (Auto) 87.7 % Lymphocytes (%) (Auto) 2.0 % Monocytes (%) (Auto) 9.8 % Eosinophils (%) (Auto) 0.0 % Basophils (%) (Auto) 0.1 % Neutrophils # (Auto) 12.41 1.4-6.5 K/uL Lymphocytes # (Auto) 0.28 1.2-3.4 K/uL Monocytes # (Auto) 1.38 0.11-0.59 K/uL Eosinophils # (Auto) 0.00 0-0.5 K/uL Basophils # (Auto) 0.01 0-0.2 K/uL RDW Standard Deviation 40.3 36.4-46.3 fL RDW Coefficient of Variation 12.5 11.5-14.5 % Immature Granulocyte % (Auto) 0.4 % Immature Granulocyte # (Auto) 0.06 0.00-0.02 K/uL Red Blood Cell Morphology Unremarkable Sodium Level 123 136-145 mmol/L Potassium Level 1.9 3.5-5.1 mmol/L Chloride Level 79 98-107 mmol/L Carbon Dioxide Level 16 21-32 mmol/L Anion Gap 28.0 3-11 mmol/L Blood Urea Nitrogen 5 7-18 mg/dl Creatinine 0.74 0.60-1.40 mg/dl Est Creatinine Clear Calc Drug Dose 90.8 ml/min Estimated GFR () 122.9 Estimated GFR (Non- 106.1 BUN/Creatinine Ratio 6.9 10-20 Random Glucose 79 70-99 mg/dl Calcium Level 7.6 8.5-10.1 mg/dl Phosphorus Level 1.2 2.5-4.9 mg/dl Magnesium Level 2.0 1.8-2.4 mg/dl Total Bilirubin 1.1 0.2-1 mg/dl Direct Bilirubin 0.4 0-0.2 mg/dl Aspartate Amino Transf (AST/SGOT) 62 15-37 U/L Alanine Aminotransferase (ALT/SGPT) 49 12-78 U/L Alkaline Phosphatase 110 45-117 U/L Total Creatine Kinase 103 39-308 U/L Troponin I < 0.015 0-0.045 ng/ml Total Protein 6.3 6.4-8.2 gm/dl Albumin 2.9 3.4-5.0 gm/dl Urine Osmolality 429 500-800 mOms/kg Urine Random Sodium 49 mEq/L Osmolality 265 280-300 mOsm/kg Test 02/08/17 20:20 02/09/17 03:58 02/09/17 09:19 Range/Units Sodium Level 125 126 136-145 mmol/L Potassium Level 2.4 3.9 3.5-5.1 mmol/L Chloride Level 85 94 98-107 mmol/L Carbon Dioxide Level 16 20 21-32 mmol/L Anion Gap 24.0 12.0 3-11 mmol/L Blood Urea Nitrogen 4 4 7-18 mg/dl Creatinine 0.88 0.82 0.60-1.40 mg/dl Est Creatinine Clear Calc Drug Dose 67.1 72.0 ml/min Estimated GFR () 114.5 117.8 Estimated GFR (Non- 98.8 101.7 BUN/Creatinine Ratio 4.7 4.4 10-20 Random Glucose 105 107 70-99 mg/dl Lactic Acid Level 0.9 0.4-2.0 mmol/L Calcium Level 7.4 7.5 8.5-10.1 mg/dl Phosphorus Level 2.0 0.4 2.5-4.9 mg/dl White Blood Count 12.02 4.8-10.8 K/uL Red Blood Count 3.64 4.7-6.1 M/uL Hemoglobin 11.8 14.0-18.0 g/dL Hematocrit 32.2 42-52 % Mean Corpuscular Volume 88.5 80-100 fL Mean Corpuscular Hemoglobin 32.4 25-34 pg Mean Corpuscular Hemoglobin Concent 36.6 32-36 g/dl RDW Standard Deviation 39.7 36.4-46.3 fL RDW Coefficient of Variation 12.4 11.5-14.5 % Platelet Count 127 130-400 K/uL Mean Platelet Volume 10.3 7.4-10.4 fL Total Bilirubin 0.9 0.2-1 mg/dl Aspartate Amino Transf (AST/SGOT) 61 15-37 U/L Alanine Aminotransferase (ALT/SGPT) 47 12-78 U/L Alkaline Phosphatase 113 45-117 U/L Total Protein 5.8 6.4-8.2 gm/dl Albumin 2.8 3.4-5.0 gm/dl Globulin 3.0 2.5-4.0 gm/dl Albumin/Globulin Ratio 0.9 0.9-2
[2017-02-09 10:29] LABS: BUN/CREATININE RATIO 5.6 (10-20); CALCIUM 7.3 mg/dl (8.5-10.1); CREATININE 0.73 mg/dl (0.60-1.40); MAGNESIUM 1.8 mg/dl (1.8-2.4); POTASSIUM 3.4 mmol/L (3.5-5.1)
[2017-02-09 10:39] LABS: CKMB/CK RATIO 2.1 (0-3.0)
[2017-02-09 10:41] LABS: PHOSPHORUS 0.8 mg/dl (2.5-4.9)
[2017-02-09] MEDS ORDERED: NURSING VERBAL MED ORDER ONE (11:00)
[2017-02-09] MEDS ORDERED: POTASSIUM PHOSPHATE INJ 21 MMOL in SODIUM CHLORIDE 0.9% 500ML 500 ML IV SCH (11:15)
[2017-02-09] MEDS: GABAPENTIN 600MG Q8H DOSE PO SCH ×3 (14:05→22:00)
[2017-02-09 16:18] LABS: BUN/CREATININE RATIO 8.6 (10-20); CREATININE 0.77 mg/dl (0.60-1.40); MAGNESIUM 1.4 mg/dl (1.8-2.4); POTASSIUM 2.7 mmol/L (3.5-5.1)
[2017-02-09 16:19] LABS: CKMB/CK RATIO 1.8 (0-3.0)
[2017-02-09 16:30] LABS: PHOSPHORUS 1.2 mg/dl (2.5-4.9)
[2017-02-09] MEDS ORDERED: POTASSIUM CHLORIDE PWD 20 MEQ PACK PO ONE (17:33)
[2017-02-09] MEDS ORDERED: CALCIUM CARBONATE 1250 MG/5 ML PO ONE (17:33)
--- NOTE | 2017-02-09 17:45 | Nephrology Consultation ---
Nephrology Consultation Date of Consultation: Feb 09, 2017. Attending Physician: Dr Norman Requesting Physician: Dr Kessler Reason for Consultation: Electrolyte disorder History of Present Illness 51 year old homeless male w/ EtOH dependence admitted last evening with K 1.9, phos 1.2, Na 123 after presenting with generalized weakness. Other PMH includes active tobacco abuse, HTN, admission 07/2016 for BL pneumonia and pleural effusions w/ severe EtOH withdrawal; remote closed calcaneal fracture. He was aggressively repleted overnight w/ both oral and iv potassium as well as NS w/ 20 mEq K cl and serial labs were followed. He also received a banana bag and prn lorazepam for EtOH withdrawal. This am his Na is 126, K 3.9, phos 0.4. Magnesium was normal on presentation. Urine Na and osms on presentation were 49 and 429 respectively. He was afebrile, normotensive, and not hypoxic on presentation. His WBC were 14K on presentation and ECG c/w possible inferior ischemia (w/ K 1.9). Repeat ECG for this am. Troponins negative. Pt seen this am at 0900 on rounds and care d/w Dr Norman at that time. I have been following his labs through the day and adjusting care accordingly. shortly after lunch today he developed severe diarrhea. Past Medical/Surgical History Medical Problems: (1) Alcohol dependence Status: Acute (2) Closed left clavicular fracture Status: Acute (3) Elbow fracture, left Status: Acute (4) Fall as cause of accidental injury in residential institution as place of occurrence Status: Acute (5) Generalized weakness Status: Acute (6) Homeless Status: Acute (7) Hypokalemia Status: Acute (8) Hypophosphatemia Status: Acute (9) Malnutrition Status: Acute Family History FHx: cancer Social History Smoking Status: Current Every Day Smoker Alcohol Use: heavy Marital Status: single Housing Status: other Occupation Status: unemployed Allergies Coded Allergies: Penicillins (Verified Adverse Reaction, Mild, TIRED, 02/08/17) Medications Current Inpatient Medications Medications (Trade) Dose Ordered Sig/Jaylene Route Start Time Stop Time Status Last Admin Dose Admin Potassium Chloride/Sodium Chloride 1,000 ml @ 75 mls/hr [id number] IV 02/08/17 18:00 03/10/17 17:59 02/08/17 18:51 75 MLS/HR Acetaminophen (Tylenol Tab) 650 mg Q4H PRN PO 02/08/17 15:45 03/10/17 15:44 Magnesium Hydroxide (Milk Of Magnesia Susp) 30 ml Q12H PRN PO 02/08/17 15:45 03/10/17 15:44 Ondansetron HCl (Zofran Inj) 4 mg Q6H PRN IV 02/08/17 15:45 03/10/17 15:44 Polyethylene (Miralax Powder Packet) 17 gm DAILY PRN PO 02/08/17 15:45 03/10/17 15:44 Thiamine HCl (Vitamin B-1 Tab) 100 mg Q24H PO 02/08/17 20:00 03/10/17 19:59 02/08/17 20:32 100 MG Lorazepam (Ativan Tab) PRN Dosing -Active Protocol UD PRN PO 02/08/17 15:45 03/10/17 15:44 Lorazepam (Ativan Inj) 1 mg ONE PRN IV 02/08/17 15:45 Gabapentin (Neurontin Tab) 600 mg Q8H PO 02/09/17 14:00 02/10/17 06:01 Gabapentin (Neurontin Tab) 600 mg Q12H PO 02/10/17 18:00 02/11/17 06:01 Gabapentin (Neurontin Tab) 600 mg Q24H PO 02/12/17 06:00 02/12/17 06:01 Potassium Phosphate 21 mmol/ Sodium Chloride 507 ml @ 88 mls/hr NOW ONCE IV 02/09/17 05:30 02/09/17 11:15 02/09/17 05:31 88 MLS/HR Home Meds and Scripts Medications Dose Route/Sig Max Daily Dose Days Date Category No Active Prescriptions or Reported Medications Rx Review of Systems Constitutional: + weakness, + fatigue, No fever Eyes: No worsening of vision ENT: + trouble swallowing, No hearing loss Respiratory: No cough, No shortness of breath Cardiac: No chest pain, No edema, No palpitations Abdomen: No pain, No nausea, No vomiting, No diarrhea, No constipation Musculoskeletal: No joint pain, No muscle pain Male : No dysuria, No hematuria Neuro: + weakness, + balance problems, No memory loss, No numbness/tingling Psych: No depression symptoms Heme: No abnormal bleeding/bruising Endo: + fatigue Skin: No rash, No itch Physical Exam Date Time Temp Pulse Resp B/P (MAP) Pulse Ox O2 Delivery O2 Flow Rate FiO2 02/09/17 04:10 100 Room Air 02/09/17 04:00 37.0 92 16 115/77 (90) 93 Room Air 02/09/17 00:00 37.1 80 14 111/75 (87) 100 Room Air 02/09/17 00:00 100 Room Air 02/08/17 20:35 37.2 88 16 150/70 (96) 97 Room Air 02/08/17 17:23 37.3 85 18 137/75 Room Air 02/08/17 16:35 94 16 144/86 96 Room Air 02/08/17 16:03 94 14 133/73 100 Room Air 02/08/17 15:32 89 14 144/86 100 Room Air 02/08/17 15:12 87 02/08/17 15:00 100 Room Air 02/08/17 14:32 83 13 156/85 100 Room Air 02/08/17 14:00 86 13 145/87 93 Room Air 02/08/17 12:57 88 15 132/83 99 Room Air 02/08/17 11:22 88 02/08/17 10:45 36.6 103 17 132/96 99 Room Air General Appearance: WD/WN, no apparent distress, + cachetic Eyes: EOMI ENT: + pertinent finding (very hard of hearing) Neck: supple Respiratory/Chest: lungs clear, + decreased breath sounds Cardiovascular: regular rate, rhythm, no edema Abdomen: normal bowel sounds, non tender, soft, + pertinent finding (no alexander) Extremities: no pedal edema Neurologic/Psych: alert, normal mood/affect, oriented x 3, + motor weakness Skin: no jaundice, warm/dry, no rash Diagnostics Last 24 Hours Test 02/08/17 13:06 02/08/17 13:42 02/08/17 16:30 02/08/17 20:16 Ethyl Alcohol mg/dL < 3.0 mg/dl White Blood Count 14.14 K/uL Red Blood Count 3.51 M/uL Hemoglobin 11.8 g/dL Hematocrit 31.1 % Mean Corpuscular Volume 88.6 fL Mean Corpuscular Hemoglobin 33.6 pg Mean Corpuscular Hemoglobin Concent 37.9 g/dl Platelet Count 112 K/uL Mean Platelet Volume 10.5 fL Neutrophils (%) (Auto) 87.7 % Lymphocytes (%) (Auto) 2.0 % Monocytes (%) (Auto) 9.8 % Eosinophils (%) (Auto) 0.0 % Basophils (%) (Auto) 0.1 % Neutrophils # (Auto) 12.41 K/uL Lymphocytes # (Auto) 0.28 K/uL Monocytes # (Auto) 1.38 K/uL Eosinophils # (Auto) 0.00 K/uL Basophils # (Auto) 0.01 K/uL RDW Standard Deviation 40.3 fL RDW Coefficient of Variation 12.5 % Immature Granulocyte % (Auto) 0.4 % Immature Granulocyte # (Auto) 0.06 K/uL Red Blood Cell Morphology Unremarkable Sodium Level 123 mmol/L Potassium Level 1.9 mmol/L Chloride Level 79 mmol/L Carbon Dioxide Level 16 mmol/L Anion Gap 28.0 mmol/L Blood Urea Nitrogen 5 mg/dl Creatinine 0.74 mg/dl Est Creatinine Clear Calc Drug Dose 90.8 ml/min Estimated GFR () 122.9 Estimated GFR (Non- 106.1 BUN/Creatinine Ratio 6.9 Random Glucose 79 mg/dl Calcium Level 7.6 mg/dl Phosphorus Level 1.2 mg/dl Magnesium Level 2.0 mg/dl Total Bilirubin 1.1 mg/dl Direct Bilirubin 0.4 mg/dl Aspartate Amino Transf (AST/SGOT) 62 U/L Alanine Aminotransferase (ALT/SGPT) 49 U/L Alkaline Phosphatase 110 U/L Total Creatine Kinase 103 U/L Troponin I < 0.015 ng/ml Total Protein 6.3 gm/dl Albumin 2.9 gm/dl Urine Osmolality 429 mOms/kg Urine Random Sodium 49 mEq/L Osmolality 265 mOsm/kg Test 02/08/17 20:20 02/09/17 03:58 Sodium Level 125 mmol/L 126 mmol/L Potassium Level 2.4 mmol/L 3.9 mmol/L Chloride Level 85 mmol/L 94 mmol/L Carbon Dioxide Level 16 mmol/L 20 mmol/L Anion Gap 24.0 mmol/L 12.0 mmol/L Blood Urea Nitrogen 4 mg/dl 4 mg/dl Creatinine 0.88 mg/dl 0.82 mg/dl Est Creatinine Clear Calc Drug Dose 67.1 ml/min 72.0 ml/min Estimated GFR () 114.5 117.8 Estimated GFR (Non- 98.8 101.7 BUN/Creatinine Ratio 4.7 4.4 Random Glucose 105 mg/dl 107 mg/dl Lactic Acid Level 0.9 mmol/L Calcium Level 7.4 mg/dl 7.5 mg/dl Phosphorus Level 2.0 mg/dl 0.4 mg/dl White Blood Count 12.02 K/uL Red Blood Count 3.64 M/uL Hemoglobin 11.8 g/dL Hematocrit 32.2 % Mean Corpuscular Volume 88.5 fL Mean Corpuscular Hemoglobin 32.4 pg Mean Corpuscular Hemoglobin Concent 36.6 g/dl RDW Standard Deviation 39.7 fL RDW Coefficient of Variation 12.4 % Platelet Count 127 K/uL Mean Platelet Volume 10.3 fL Total Bilirubin 0.9 mg/dl Aspartate Amino Transf (AST/SGOT) 61 U/L Alanine Aminotransferase (ALT/SGPT) 47 U/L Alkaline Phosphatase 113 U/L Total Protein 5.8 gm/dl Albumin 2.8 gm/dl Globulin 3.0 gm/dl Albumin/Globulin Ratio 0.9 Diagnostic Radiology: CXR > no acute cardiopulm findings EKG: ECG > possible inferior infarct; poor data quality; SR w/ permature [facility] [place] & Plan 51 y/o cachectic M w/ EtOH dependence and homelessness admitted with severe hypokalemia, hypophosphatemia, hyponatremia on 02/08 after presenting with generalized weakness. Lactic acid was normal. electrolyte disorder >> in setting of poor nutrition/po intake d/t addiction and limited access to food/detention. >>hypovolemic hyponatremia, severe (and this am worse) hypophosphatemia, improved hypokalemia; another possible mechanism for hyponatremia is low solute diet >> in which case sodium may prove more difficult to correct/will need different strategy; we will watch for this; need also to watch for refeeding syndrome. Serum sodium was 123 on presentation at 1400 02/08; goal sNa for today at 1400 is 129-130 -repeat labs for 10 am and will then recheck 1500<<>> based on afternoon labs, changed K to 40 mEq/L in NS same rate, started standing K powder supplements, oral + IV calcium -replete po where possible for K and phos -he is receving IV phos now this am -started on neutraphos 2 tabs qid (phos, potassium, sodium) >> these should continue -low threshold for calorie count/swallow eval/prealbumin -f/u repeat ECG>> still w/ ECG chagnes though troponin negative -2100 labs ordered I have been following his labs through the day and adjusting care accordingly. Will give parameters/ instructions for response to 2100 labs. Appreciate consult; will follow with you. care coordinated w/ Dr. Norman
[2017-02-09] MEDS ORDERED: CALCIUM GLUCONATE 10% 1,000 MG in SODIUM CHLORIDE 0.9% 50ML 50 ML IV ONE (18:00)
[2017-02-09] MEDS: POTASSIUM CHLORIDE INJ 40 MEQ in SODIUM CHLORIDE 0.9% 1000ML 1,000 ML IV SCH (18:03)
[2017-02-09] MEDS ORDERED: CONSULT PHARMACY PRN (18:15)
[2017-02-09] MEDS: THIAMINE HCL 100 MG TAB PO SCH ×2 (21:57→22:15)
[2017-02-09] MEDS: CALCIUM CARBONATE 1250 MG/5 ML PO SCH ×2 (21:58→22:15)
[2017-02-09 22:32] LABS: CKMB/CK RATIO 1.7 (0-3.0); CREATININE 0.52 mg/dl (0.60-1.40)
[2017-02-09 22:33] LABS: CALCIUM 7.5 mg/dl (8.5-10.1); MAGNESIUM 1.4 mg/dl (1.8-2.4); POTASSIUM 2.2 mmol/L (3.5-5.1)
[2017-02-09 22:37] LABS: PHOSPHORUS 1.5 mg/dl (2.5-4.9)
[2017-02-10] VITALS (7 sets, daily range): BP systolic 99–130; BP diastolic 63–79; PULSE 74–95; TEMP 37.1–37.7; O2SAT 96–97
[2017-02-10] MEDS: MAGNESIUM SULFATE 1GM / D5W 1 GM in PREMIXED IN D5W 100 ML IV SCH ×2 (00:04→01:18)
[2017-02-10] MEDS: POTASSIUM CHLR 10MEQ / WTR IV SCH ×4 (00:05→03:32)
[2017-02-10] MEDS: POTASSIUM CHLORIDE INJ 40 MEQ in SODIUM CHLORIDE 0.9% 1000ML 1,000 ML IV SCH (05:02)
[2017-02-10 05:28] LABS: HEMATOCRIT 27.2 % (42-52); MEAN CELL VOLUME 90.4 fL (80-100); MEAN CORPUSCULAR HEMOGLOBIN 33.6 pg (25-34); MEAN CORPUSCULAR HGB CONC 37.1 g/dl (32-36); PLATELET COUNT 111 K/uL (130-400); RED BLOOD COUNT 3.01 M/uL (4.7-6.1); WHITE BLOOD COUNT 8.83 K/uL (4.8-10.8)
[2017-02-10] MEDS: GABAPENTIN 600MG Q8H DOSE PO SCH (06:09)
[2017-02-10 06:15] LABS: BLOOD UREA NITROGEN 3 mg/dl (7-18); BUN/CREATININE RATIO 7.6 (10-20); CALCIUM 7.2 mg/dl (8.5-10.1); CARBON DIOXIDE 29 mmol/L (21-32); CHLORIDE 90 mmol/L (98-107); CREATININE 0.36 mg/dl (0.60-1.40); GLUCOSE 98 mg/dl (70-99); PHOSPHORUS 1.1 mg/dl (2.5-4.9); POTASSIUM 2.5 mmol/L (3.5-5.1); SODIUM 127 mmol/L (136-145)
[2017-02-10] MEDS ORDERED: POTASSIUM PHOS 3 MMOL/1 ML INFUSION IV STA (07:15)
[2017-02-10] MEDS ORDERED: POTASSIUM PHOSPHATE INJ 40 MMOL in SODIUM CHLORIDE 0.9% 1000ML 1,000 ML IV SCH (08:00)
--- NOTE | 2017-02-10 08:50 | Nephrology Progress Note ---
Nephrology Progress Note Date of Service: Feb 10, 2017. Subjective no c/o dyspnea or chest discomfort; still weak w/ getting up/ambulating; refusing some meds >states does not tolerate pills; diarrhea slowed; eating well ; no etoh w/drawal sx Objective Date Time Temp Pulse Resp B/P (MAP) Pulse Ox O2 Delivery O2 Flow Rate FiO2 02/10/17 04:00 37.4 84 16 99/64 (76) 96 Room Air 02/10/17 04:00 Room Air 02/09/17 23:59 Room Air 02/09/17 23:52 37.7 89 16 106/73 (84) 97 Room Air 02/09/17 20:56 Room Air 02/09/17 20:30 37.0 83 16 148/87 (107) 99 Room Air 02/09/17 16:28 37.7 91 18 128/85 (99) 99 Room Air 02/09/17 16:00 Room Air 02/09/17 12:00 Room Air 02/09/17 11:46 38.1 91 18 110/75 (87) 100 Room Air 02/09/17 08:14 37.6 84 18 122/77 (92) 100 Room Air 02/09/17 08:00 Room Air Physical Exam: General Appearance: WD/WN, no apparent distress, + cachetic on RA Eyes: EOMI ENT: + pertinent finding (very hard of hearing) Neck: supple Respiratory/Chest: lungs clear, + decreased breath sounds Cardiovascular: regular rate, rhythm, no edema Abdomen: normal bowel sounds, non tender, soft, + pertinent finding (no alexander) Extremities: no pedal edema Neurologic/Psych: alert, normal mood/affect, oriented x 3, + motor weakness Skin: no jaundice, warm/dry, no rash Current Inpatient Medications Medications (Trade) Dose Ordered Sig/Jaylene Route Start Time Stop Time Status Last Admin Dose Admin Acetaminophen (Tylenol Tab) 650 mg Q4H PRN PO 02/08/17 15:45 03/10/17 15:44 Magnesium Hydroxide (Milk Of Magnesia Susp) 30 ml Q12H PRN PO 02/08/17 15:45 03/10/17 15:44 Ondansetron HCl (Zofran Inj) 4 mg Q6H PRN IV 02/08/17 15:45 03/10/17 15:44 Polyethylene (Miralax Powder Packet) 17 gm DAILY PRN PO 02/08/17 15:45 03/10/17 15:44 Thiamine HCl (Vitamin B-1 Tab) 100 mg Q24H PO 02/08/17 20:00 03/10/17 19:59 02/08/17 20:32 100 MG Lorazepam (Ativan Tab) PRN Dosing -Active Protocol UD PRN PO 02/08/17 15:45 03/10/17 15:44 Lorazepam (Ativan Inj) 1 mg ONE PRN IV 02/08/17 15:45 Gabapentin (Neurontin Tab) 600 mg Q12H PO 02/10/17 18:00 02/11/17 06:01 Gabapentin (Neurontin Tab) 600 mg Q24H PO 02/12/17 06:00 02/12/17 06:01 Multivitamins (Multivitamin Tab) 1 tab DAILY PO 02/09/17 09:00 03/11/17 08:59 02/09/17 08:46 1 TAB Folic Acid (Folvite Tab) 1 mg DAILY PO 02/09/17 09:00 03/11/17 08:59 02/09/17 08:46 1 MG Potassium/ Phosphorus/Sodium (Phospha 250 Neutral 155-852-130 Mg) 2 tab QID PO 02/09/17 09:00 03/11/17 08:59 02/09/17 17:53 2 TAB Potassium Chloride 40 meq/ Sodium Chloride 1,020 ml @ 75 mls/hr [id number] IV 02/09/17 18:00 03/11/17 17:59 02/10/17 05:02 75 MLS/HR Potassium Chloride (Klor-Con Pwd) 20 meq TID PO 02/09/17 21:00 03/11/17 20:59 Calcium Carbonate (Calcium Carbonate Susp) 1,250 mg TID PO 02/09/17 21:00 03/11/17 20:59 Last 24 Hours Test 02/09/17 09:52 02/09/17 11:06 02/09/17 15:24 02/09/17 21:55 Sodium Level 129 mmol/L 130 mmol/L 129 mmol/L Potassium Level 3.4 mmol/L 2.7 mmol/L 2.2 mmol/L Chloride Level 95 mmol/L 93 mmol/L 90 mmol/L Carbon Dioxide Level 25 mmol/L 26 mmol/L 29 mmol/L Anion Gap 9.0 mmol/L 11.0 mmol/L 10.0 mmol/L Blood Urea Nitrogen 4 mg/dl 7 mg/dl 5 mg/dl Creatinine 0.73 mg/dl 0.77 mg/dl 0.52 mg/dl Est Creatinine Clear Calc Drug Dose 84.4 ml/min 80.0 ml/min 118.5 ml/min Estimated GFR () 123.6 120.9 142.1 Estimated GFR (Non- 106.6 104.3 122.6 BUN/Creatinine Ratio 5.6 8.6 9.0 Random Glucose 108 mg/dl 130 mg/dl 100 mg/dl Calcium Level 7.3 mg/dl 7.0 mg/dl 7.5 mg/dl Phosphorus Level 0.8 mg/dl 1.2 mg/dl 1.5 mg/dl Magnesium Level 1.8 mg/dl 1.4 mg/dl 1.4 mg/dl Total Creatine Kinase 85 U/L 98 U/L 101 U/L Creatine Kinase MB 1.8 ng/ml 1.8 ng/ml 1.7 ng/ml Creatine Kinase MB Ratio 2.1 1.8 1.7 Troponin I 0.015 ng/ml 0.016 ng/ml 0.018 ng/ml Ionized Calcium 1.01 mmol/l 0.94 mmol/l 1.00 mmol/l Test 02/10/17 05:06 02/10/17 05:07 Sodium Level 127 mmol/L Potassium Level 2.5 mmol/L Chloride Level 90 mmol/L Carbon Dioxide Level 29 mmol/L Anion Gap 8.0 mmol/L Blood Urea Nitrogen 3 mg/dl Creatinine 0.36 mg/dl Est Creatinine Clear Calc Drug Dose 171.1 ml/min Estimated GFR () > 150.0 Estimated GFR (Non- 142.6 BUN/Creatinine Ratio 7.6 Random Glucose 98 mg/dl Calcium Level 7.2 mg/dl Ionized Calcium 0.97 mmol/l Phosphorus Level 1.1 mg/dl Magnesium Level 2.0 mg/dl White Blood Count 8.83 K/uL Red Blood Count 3.01 M/uL Hemoglobin 10.1 g/dL Hematocrit 27.2 % Mean Corpuscular Volume 90.4 fL Mean Corpuscular Hemoglobin 33.6 pg Mean Corpuscular Hemoglobin Concent 37.1 g/dl RDW Standard Deviation 41.8 fL RDW Coefficient of Variation 12.7 % Platelet Count 111 K/uL Mean Platelet Volume 10.0 fL Date/Time Source Procedure Growth Status 02/09/17 19:00 Stool C.difficile Toxin B Gene (PCR) - Final No C. difficile toxin B gene detected Complete Assessment & Plan 51 y/o cachectic M w/ hx EtOH withdrawal/severe DTs 07/2016 and homelessness admitted with severe hypokalemia, hypophosphatemia, hyponatremia on 02/08 after presenting with generalized weakness. Lactic acid was normal. Serum sodium was 123 on presentation at 1400 02/08. electrolyte disorder >> in setting of poor nutrition/po intake and hx of EtOH addiction though few symptoms of withdrawal currently >>hypovolemic hyponatremia>>will be hard to correct until K stabilizes -another possible mechanism for hyponatremia is low solute diet >> in which case sodium may prove more difficult to correct/will need different strategy; we will watch for this> recheck urine lytes -goal sNa for tomorrow am is 133 -cont NS w/ 40 mEq KCl at 75 mL hourly for now -recheck labs at 10 am, at 1530 today >orders in severe / moderate and persistent hypophosphatemia, severe hypokalemia, some hypomagnesemia together all present on presentation in this malnourished pt -cont to monitor for worsening electrolytes which would be concerning for refeeding syndrome -will w/ next labs order labs to evaluate PTH/vitamin D axis and check uacm for evidence of fanconi's syndrome (unlikely) -gave 40 mmol K phos IV this am; cont po K phos powder -educated pt and will need to reinforce this that best to replete lytes po not IV hypocalcemia -on po supplements and giving IV repletion w/ ionized Ca values <1 Appreciate consult; will follow with you.
[2017-02-10] MEDS: POT PHOSPHATE MONOBASIC W/ SOD TAB PO SCH ×4 (09:26→20:03)
[2017-02-10] MEDS: MULTIVITAMIN TAB PO SCH (09:26)
[2017-02-10] MEDS: POTASSIUM CHLORIDE PWD 20 MEQ PACK PO SCH ×3 (09:26→20:03)
[2017-02-10] MEDS: CALCIUM CARBONATE 1250 MG/5 ML PO SCH ×3 (09:26→20:03)
[2017-02-10 13:19] LABS: BUN/CREATININE RATIO 5.5 (10-20); CALCIUM 7.8 mg/dl (8.5-10.1); CREATININE 0.65 mg/dl (0.60-1.40); POTASSIUM 2.6 mmol/L (3.5-5.1)
[2017-02-10 14:56] LABS: MANUAL MICROSCOPIC REQUIRED? NO; REVIEW REQ? NO; URINE APPEARANCE CLEAR (CLEAR); URINE BILIRUBIN NEG (NEG); URINE COLOR YELLOW; URINE NITRITE NEG (NEG); URINE SPECIFIC GRAVITY 1.013 (1.000-1.030); UROBILINOGEN NEG (NEG)
[2017-02-10] MEDS: LOPERAMIDE HCL 2 MG CAP PO PRN ×2 (16:34→23:56)
[2017-02-10 16:47] LABS: BLOOD UREA NITROGEN 5 mg/dl (7-18); BUN/CREATININE RATIO 11.7 (10-20); CARBON DIOXIDE 31 mmol/L (21-32); CHLORIDE 89 mmol/L (98-107); CREATININE 0.43 mg/dl (0.60-1.40); GLUCOSE 101 mg/dl (70-99); PHOSPHORUS 2.6 mg/dl (2.5-4.9); POTASSIUM 2.8 mmol/L (3.5-5.1); SODIUM 129 mmol/L (136-145)
[2017-02-10] MEDS: GABAPENTIN 600MG Q12H DOSE PO SCH (17:25)
[2017-02-10] MEDS ORDERED: POTASSIUM CHLORIDE 10 MEQ TABCR PO STA (17:27)
[2017-02-10] MEDS ORDERED: NURSING VERBAL MED ORDER ONE (17:30)
--- NOTE | 2017-02-10 17:31 | Progress Note ---
Internal Med Progress Note Date of Service: Feb 10, 2017. Provider Documentation: SUBJECTIVE: very hard of hearing offers no complain continues to have loose watery diarrhea -multiple episodes OBJECTIVE: Vital Signs-as noted below Exam: General-cachetic , disheveled Eyes-sclera non icteric Lungs-CTA Heart-regular Abdomen-soft, scaphoid Extremities-no rash or deformity , no edema Neuro-no focal deficit , hard of hearing Lab data as noted below. ASSESSMENT & PLAN: SEVERE ELECTROLYTE ABNORMALITIES- Hyponatremia, Hypokalemia, Hypophosphatemia Likely in setting of alcoholism, inadequate nutrition, lack of self care, homeless situation -replaced aggressively - -Nephrology consulted.appreciate input ordered for both PO and IV replacement follow lyes closely ONGOING DIARRHEA : possibly contributing to electrolyte imbalance stool C diff negative ordered for Imodium PRN GENERALIZED WEAKNESS : due to above correct lytes PT/OT eval requested EKG CHANGED : possible due to electrolyte derangements denies of any chest pain or SOB serial Cardiac markers ordered monitor in tele repeat EKG in AM ELEVATED ANION GAP Likely secondary to alcoholic ketoacidosis -Lactic acid WNL -resolved Gap 24-> 12 -> 9 with IV hydration LEUCOCYTOSIS possible from dehydration normal WBC today cont IV hydration -No indication of antibiotics without any signs of infection/sepsis HX OF ALCOHOLISM Known alcoholic - drinks 2-3 beers daily. Last one 2 days ago and alcohol levels normal now -cont to monitor for alcohol withdrawal. Last admission 07/2016- had to be in ICU for DTs and intubated -IV banana bag given in ER -Alcohol withdrawal protocol - Gabapentin and Lorezepam PRN -Monitor closely/cont Tele monitoring SEVERE PROTEIN CALORIE MALNUTRITION Secondary to alcohol abuse /lack of personal care/adequate nutrition in setting of homelessness -BMI 16.9 -dietary consult requested for supplement DVT PROPHYLAXIS scds/teds re: thrombocytopenia DISPOSITION cont tele monitoring Home less Discussed regarding possible [facility] for more support PT/OT ; social service consulted Vital Signs: Date Time Temp Pulse Resp B/P (MAP) Pulse Ox O2 Delivery O2 Flow Rate FiO2 02/10/17 15:30 Room Air 02/10/17 15:07 37.2 82 18 102/67 (79) 97 Room Air 02/10/17 12:00 37.7 85 16 126/64 (84) 96 Room Air 02/10/17 12:00 Room Air 02/10/17 08:00 37.1 95 16 103/63 (76) 96 Room Air 02/10/17 07:30 37.4 74 20 116/73 (87) 96 Room Air 02/10/17 07:30 Room Air 02/10/17 04:00 37.4 84 16 99/64 (76) 96 Room Air 02/10/17 04:00 Room Air 02/09/17 23:59 Room Air 02/09/17 23:52 37.7 89 16 106/73 (84) 97 Room Air 02/09/17 20:56 Room Air 02/09/17 20:30 37.0 83 16 148/87 (107) 99 Room Air Lab Results: Results Past 24 Hours Test 02/09/17 21:55 02/10/17 05:06 02/10/17 05:07 02/10/17 12:27 Range/Units Sodium Level 129 127 129 136-145 mmol/L Potassium Level 2.2 2.5 2.6 3.5-5.1 mmol/L Chloride Level 90 90 89 98-107 mmol/L Carbon Dioxide Level 29 29 32 21-32 mmol/L Anion Gap 10.0 8.0 8.0 3-11 mmol/L Blood Urea Nitrogen 5 3 4 7-18 mg/dl Creatinine 0.52 0.36 0.65 0.60-1.40 mg/dl Est Creatinine Clear Calc Drug Dose 118.5 171.1 98.2 ml/min Estimated GFR () 142.1 > 150.0 129.6 Estimated GFR (Non- 122.6 142.6 111.9 BUN/Creatinine Ratio 9.0 7.6 5.5 10-20 Random Glucose 100 98 128 70-99 mg/dl Calcium Level 7.5 7.2 7.8 8.5-10.1 mg/dl Ionized Calcium 1.00 0.97 0.97 1.12-1.32 mmol/l Phosphorus Level 1.5 1.1 2.5-4.9 mg/dl Magnesium Level 1.4 2.0 1.8 1.8-2.4 mg/dl Total Creatine Kinase 101 39-308 U/L Creatine Kinase MB 1.7 0.5-3.6 ng/ml Creatine Kinase MB Ratio 1.7 0-3.0 Troponin I 0.018 0-0.045 ng/ml White Blood Count 8.83 4.8-10.8 K/uL Red Blood Count 3.01 4.7-6.1 M/uL Hemoglobin 10.1 14.0-18.0 g/dL Hematocrit 27.2 42-52 % Mean Corpuscular Volume 90.4 80-100 fL Mean Corpuscular Hemoglobin 33.6 25-34 pg Mean Corpuscular Hemoglobin Concent 37.1 32-36 g/dl RDW Standard Deviation 41.8 36.4-46.3 fL RDW Coefficient of Variation 12.7 11.5-14.5 % Platelet Count 111 130-400 K/uL Mean Platelet Volume 10.0 7.4-10.4 fL 25-Hydroxy Vitamin D Total 6.0 30-100 ng/ml Test 02/10/17 14:40 02/10/17 15:35 02/10/17 16:31 Range/Units Urine Color YELLOW Urine Appearance CLEAR CLEAR Urine pH 7.0 4.5-7.5 Urine Specific [place] 1.013 1.000-1.030 Urine Protein NEG NEG Urine Glucose (UA) TRACE NEG Urine Ketones TRACE NEG Urine Occult Blood NEG NEG Urine Nitrite NEG NEG Urine Bilirubin NEG NEG Urine Urobilinogen NEG NEG Urine Leukocyte Esterase NEG NEG Urine WBC (Auto) 0 0-5 /hpf Urine RBC (Auto) 0-4 0-4 /hpf Urine Hyaline Casts (Auto) 1-5 0-5 /lpf Urine Epithelial Cells (Auto) 5-10 0-5 /lpf Urine Bacteria (Auto) NEG NEG Urine Osmolality 421 500-800 mOms/kg Urine Random Sodium 94 mEq/L Sodium Level 129 136-145 mmol/L Potassium Level 2.8 3.5-5.1 mmol/L Chloride Level 89 98-107 mmol/L Carbon Dioxide Level 31 21-32 mmol/L Anion Gap 9.0 3-11 mmol/L Blood Urea Nitrogen 5 7-18 mg/dl Creatinine 0.43 0.60-1.40 mg/dl Est Creatinine Clear Calc Drug Dose 148.4 ml/min Estimated GFR () > 150.0 Estimated GFR (Non- 132.6 BUN/Creatinine Ratio 11.7 10-20 Random Glucose 101 70-99 mg/dl Calcium Level 7.0 8.5-10.1 mg/dl Phosphorus Level 2.6 2.5-4.9 mg/dl Parathyroid Hormone (Intact) 161.0 11.1-79.5 pg/mL Ionized Calcium 0.90 1.12-1.32 mmol/l Microbiology Results 02/09/17 C.difficile Toxin B Gene (PCR) - Final, Complete No C. difficile toxin B gene detected
[2017-02-10] MEDS ORDERED: CALCIUM GLUCONATE 10% 2,000 MG in SODIUM CHLORIDE 0.9% 50ML 50 ML IV ONE (18:15)
[2017-02-10] MEDS: THIAMINE HCL 100 MG TAB PO SCH (20:03)
[2017-02-10 21:55] LABS: BUN/CREATININE RATIO 8.5 (10-20); CALCIUM 8.3 mg/dl (8.5-10.1); CREATININE 0.46 mg/dl (0.60-1.40); PHOSPHORUS 3.3 mg/dl (2.5-4.9); POTASSIUM 3.4 mmol/L (3.5-5.1)
[2017-02-11 04:13] VITALS: BP 114/73; PULSE 86; TEMP 37.7; O2SAT 94
[2017-02-11] MEDS: POTASSIUM CHLORIDE INJ 40 MEQ in SODIUM CHLORIDE 0.9% 1000ML 1,000 ML IV SCH ×2 (04:29→17:15)
[2017-02-11 06:06] LABS: BLOOD UREA NITROGEN 2 mg/dl (7-18); BUN/CREATININE RATIO 5.7 (10-20); CALCIUM 7.8 mg/dl (8.5-10.1); CARBON DIOXIDE 36 mmol/L (21-32); CHLORIDE 92 mmol/L (98-107); GLUCOSE 91 mg/dl (70-99); MAGNESIUM 1.5 mg/dl (1.8-2.4); POTASSIUM 2.9 mmol/L (3.5-5.1); SODIUM 132 mmol/L (136-145)
[2017-02-11 06:07] LABS: PHOSPHORUS 2.8 mg/dl (2.5-4.9)
[2017-02-11] MEDS ORDERED: POTASSIUM PHOS 3 MMOL/1 ML INFUSION IV STA (06:10)
[2017-02-11] MEDS: GABAPENTIN 600MG Q12H DOSE PO SCH (06:19)
[2017-02-11] MEDS ORDERED: POTASSIUM PHOSPHATE INJ 21 MMOL in SODIUM CHLORIDE 0.9% 500ML 500 ML IV ONE (06:45)
[2017-02-11] MEDS: MULTIVITAMIN TAB PO SCH (07:52)
[2017-02-11] MEDS: POT PHOSPHATE MONOBASIC W/ SOD TAB PO SCH ×4 (07:52→20:35)
[2017-02-11] MEDS: CALCIUM CARBONATE 1250 MG/5 ML PO SCH ×3 (07:52→20:34)
[2017-02-11] MEDS: POTASSIUM CHLORIDE PWD 20 MEQ PACK PO SCH ×3 (07:53→20:34)
[2017-02-11 07:55] VITALS: BP 124/79; PULSE 85; TEMP 37.6; O2SAT 96
[2017-02-11 11:31] VITALS: BP 122/77; PULSE 93; TEMP 36.7; O2SAT 98
[2017-02-11 15:41] VITALS: BP 125/73; PULSE 86; TEMP 37.6; O2SAT 98
[2017-02-11 16:59] LABS: BUN/CREATININE RATIO 19.6 (10-20); CALCIUM 7.3 mg/dl (8.5-10.1); CARBON DIOXIDE 31 mmol/L (21-32); CHLORIDE 96 mmol/L (98-107); CREATININE 0.39 mg/dl (0.60-1.40); GLUCOSE 102 mg/dl (70-99); MAGNESIUM 1.4 mg/dl (1.8-2.4); PHOSPHORUS 3.5 mg/dl (2.5-4.9); SODIUM 132 mmol/L (136-145)
--- NOTE | 2017-02-11 17:13 | Progress Note ---
Internal Med Progress Note Date of Service: Feb 11, 2017. Provider Documentation: SUBJECTIVE: mentions diarrhea has improved -some what had 3 episode -stool more formed now OBJECTIVE: Vital Signs-as noted below Exam: General-cachetic , disheveled Eyes-sclera non icteric Lungs-CTA Heart-regular Abdomen-soft, scaphoid Extremities-no rash or deformity , no edema Neuro-no focal deficit , hard of hearing Lab data as noted below. ASSESSMENT & PLAN: SEVERE ELECTROLYTE ABNORMALITIES- Hyponatremia, Hypokalemia, Hypophosphatemia Likely in setting of alcoholism, inadequate nutrition, lack of self care, homeless situation having ongoing diarrhea -replaced aggressively - -Nephrology consulted.appreciate input ordered for both PO and IV replacement follow lyes closely ONGOING DIARRHEA : possibly contributing to electrolyte imbalance stool C diff negative ordered for Imodium PRN -some improvement of symptom GENERALIZED WEAKNESS : due to above correct lytes PT/OT eval requested EKG CHANGED : possible due to electrolyte derangements denies of any chest pain or SOB serial Cardiac markers negative monitor in tele r ELEVATED ANION GAP Likely secondary to alcoholic ketoacidosis -Lactic acid WNL -resolved Gap 24-> 12 -> 9 with IV hydration LEUCOCYTOSIS possible from dehydration WBC normalized cont IV hydration -No indication of antibiotics without any signs of infection/sepsis HX OF ALCOHOLISM no sign of withdrawal so far Known alcoholic - drinks 2-3 beers daily. Last one 2 days ago and alcohol levels normal now -cont to monitor for alcohol withdrawal. Last admission 07/2016- had to be in ICU for DTs and intubated -IV banana bag given in ER -Alcohol withdrawal protocol - Gabapentin and Lorezepam PRN -Monitor closely/cont Tele monitoring SEVERE PROTEIN CALORIE MALNUTRITION Secondary to alcohol abuse /lack of personal care/adequate nutrition in setting of homelessness -BMI 16.9 -dietary consult requested for supplement DVT PROPHYLAXIS scds/teds re: thrombocytopenia DISPOSITION cont tele monitoring Home less Discussed regarding possible longterm for more support PT/OT ; social service consulted appreciate input [facility] due to alcohol abuse hx pt needs to go to Alcohol rehab prior referral made to [facility] counselled pt , willing for for alcohol rehab Vital Signs: Date Time Temp Pulse Resp B/P (MAP) Pulse Ox O2 Delivery O2 Flow Rate FiO2 02/11/17 16:00 Room Air 02/11/17 15:41 37.6 86 16 125/73 (90) 98 Room Air 02/11/17 12:00 Room Air 02/11/17 11:31 36.7 93 18 122/77 (92) 98 Room Air 02/11/17 08:00 Room Air 02/11/17 07:55 37.6 85 17 124/79 (94) 96 Room Air 02/11/17 04:13 37.7 86 18 114/73 (87) 94 Room Air 02/11/17 04:00 Room Air 02/10/17 23:59 Room Air 02/10/17 23:40 37.1 83 20 110/67 (81) 97 Room Air 02/10/17 20:00 Room Air 02/10/17 19:22 37.2 82 16 130/79 (96) 97 Room Air Lab Results: Results Past 24 Hours Test 02/10/17 21:05 02/11/17 05:14 02/11/17 16:25 Range/Units Sodium Level 131 132 132 136-145 mmol/L Potassium Level 3.4 2.9 3.5-5.1 mmol/L Chloride Level 91 92 96 98-107 mmol/L Carbon Dioxide Level 36 36 31 21-32 mmol/L Anion Gap 4.0 4.0 5.0 3-11 mmol/L Blood Urea Nitrogen 4 2 7-18 mg/dl Creatinine 0.46 0.30 0.39 0.60-1.40 mg/dl Est Creatinine Clear Calc Drug Dose 138.7 212.7 163.9 ml/min Estimated GFR () 149.4 > 150.0 > 150.0 Estimated GFR (Non- 128.9 > 150.0 138.0 BUN/Creatinine Ratio 8.5 5.7 19.6 10-20 Random Glucose 112 91 102 70-99 mg/dl Calcium Level 8.3 7.8 7.3 8.5-10.1 mg/dl Phosphorus Level 3.3 2.8 3.5 2.5-4.9 mg/dl Ionized Calcium 1.02 1.12-1.32 mmol/l Magnesium Level 1.5 1.4 1.8-2.4 mg/dl
[2017-02-11 17:14] LABS: BLOOD UREA NITROGEN 8 mg/dl (7-18); POTASSIUM 4.4 mmol/L (3.5-5.1)
--- NOTE | 2017-02-11 17:15 | Progress Note ---
Progress Note Date of Service Feb 11, 2017. Progress Note 1600 LABS REVIEWED : k LEVEL STILL PENDING NORMAL PHOS , AG , CR LEVEL MG LOW 1.4 ORDERED FOR 3 GM IV MG SUPPLEMENT ADDED PO SLOW MG REPEAT LAB IN AM
[2017-02-11] MEDS: MAGNESIUM SULFATE 1GM / D5W 1 GM in PREMIXED IN D5W 100 ML IV SCH ×3 (18:00→20:33)
[2017-02-11 19:44] VITALS: BP 117/79; PULSE 95; TEMP 37.3; O2SAT 96
[2017-02-11] MEDS: THIAMINE HCL 100 MG TAB PO SCH (20:33)
[2017-02-11 23:36] VITALS: BP 115/73; PULSE 89; TEMP 36.7; O2SAT 94
[2017-02-12 04:28] VITALS: BP 115/71; PULSE 78; TEMP 37.1; O2SAT 96
[2017-02-12] MEDS: POTASSIUM CHLORIDE INJ 40 MEQ in SODIUM CHLORIDE 0.9% 1000ML 1,000 ML IV SCH (05:52)
[2017-02-12] MEDS ORDERED: GABAPENTIN 600MG X1 DOSE PO SCH (06:00)
[2017-02-12 06:50] LABS: BUN/CREATININE RATIO 13.1 (10-20); CALCIUM 7.5 mg/dl (8.5-10.1); CARBON DIOXIDE 28 mmol/L (21-32); CHLORIDE 97 mmol/L (98-107); CREATININE 0.25 mg/dl (0.60-1.40); GLUCOSE 91 mg/dl (70-99); PHOSPHORUS 3.6 mg/dl (2.5-4.9); POTASSIUM 3.7 mmol/L (3.5-5.1); SODIUM 131 mmol/L (136-145)
[2017-02-12] MEDS: POTASSIUM CHLORIDE PWD 20 MEQ PACK PO SCH ×3 (07:54→21:29)
[2017-02-12] MEDS: CALCIUM CARBONATE 1250 MG/5 ML PO SCH ×3 (07:54→21:27)
[2017-02-12] MEDS: MULTIVITAMIN TAB PO SCH (07:54)
[2017-02-12] MEDS: POT PHOSPHATE MONOBASIC W/ SOD TAB PO SCH ×4 (07:54→21:35)
[2017-02-12] MEDS: MAGNESIUM CHLORIDE 64MG DELAYED REL TAB PO SCH (07:55)
[2017-02-12 08:33] VITALS: BP 130/85; PULSE 83; TEMP 37; O2SAT 96
[2017-02-12 09:46] LABS: BLOOD UREA NITROGEN 3 mg/dl (7-18)
[2017-02-12] MEDS: NICOTINE 21 MG/24 HR TDSY TD SCH (10:17)
[2017-02-12 12:08] VITALS: BP 114/73; PULSE 79; TEMP 37.3; O2SAT 100
[2017-02-12 13:40] VITALS: BP 114/73; PULSE 79; TEMP 37.3; O2SAT 100
--- NOTE | 2017-02-12 14:02 | Nephrology Progress Note ---
Nephrology Progress Note Date of Service: Feb 12, 2017. Subjective No new issues. eating now. All lytes are fine today Objective Date Time Temp Pulse Resp B/P (MAP) Pulse Ox O2 Delivery O2 Flow Rate FiO2 02/12/17 13:40 37.3 79 18 100 02/12/17 12:08 37.3 79 18 114/73 (87) 100 Room Air 02/12/17 12:00 Room Air 02/12/17 08:33 37.0 83 18 130/85 (100) 96 Room Air 02/12/17 08:00 Room Air 02/12/17 04:28 37.1 78 20 115/71 (86) 96 Room Air 02/12/17 04:00 Room Air 02/12/17 00:02 Room Air 02/11/17 23:36 36.7 89 20 115/73 (87) 94 Room Air 02/11/17 20:00 Room Air 02/11/17 19:44 37.3 95 20 117/79 (92) 96 Room Air 02/11/17 16:00 Room Air 02/11/17 15:41 37.6 86 16 125/73 (90) 98 Room Air Physical Exam: General-[frail and cachectic] Neck-[supple] Lungs-[wheezing] Heart-[RRR] Abdomen-[Soft] Extremities-[No edema] Current Inpatient Medications Medications (Trade) Dose Ordered Sig/Jaylene Route Start Time Stop Time Status Last Admin Dose Admin Acetaminophen (Tylenol Tab) 650 mg Q4H PRN PO 02/08/17 15:45 03/10/17 15:44 Ondansetron HCl (Zofran Inj) 4 mg Q6H PRN IV 02/08/17 15:45 03/10/17 15:44 Thiamine HCl (Vitamin B-1 Tab) 100 mg Q24H PO 02/08/17 20:00 03/10/17 19:59 02/11/17 20:33 100 MG Lorazepam (Ativan Tab) PRN Dosing -Active Protocol UD PRN PO 02/08/17 15:45 03/10/17 15:44 Lorazepam (Ativan Inj) 1 mg ONE PRN IV 02/08/17 15:45 Multivitamins (Multivitamin Tab) 1 tab DAILY PO 02/09/17 09:00 03/11/17 08:59 02/12/17 07:54 1 TAB Folic Acid (Folvite Tab) 1 mg DAILY PO 02/09/17 09:00 03/11/17 08:59 02/12/17 07:54 1 MG Potassium/ Phosphorus/Sodium (Phospha 250 Neutral 155-852-130 Mg) 2 tab QID PO 02/09/17 09:00 03/11/17 08:59 02/12/17 13:19 2 TAB Potassium Chloride 40 meq/ Sodium Chloride 1,020 ml @ 75 mls/hr [id number] IV 02/09/17 18:00 03/11/17 17:59 02/12/17 05:52 75 MLS/HR Calcium Carbonate (Calcium Carbonate Susp) 1,250 mg TID PO 02/09/17 21:00 03/11/17 20:59 02/12/17 07:54 1,250 MG Loperamide HCl (Imodium Cap) 2 mg Q8 PRN PO 02/10/17 16:00 03/12/17 15:59 02/10/17 23:56 2 MG Potassium Chloride (Klor-Con Pwd) 40 meq TID PO 02/11/17 14:00 03/11/17 20:59 02/12/17 07:54 40 MEQ Magnesium Chloride (Slow-Mag Tab) 64 mg QAM PO 02/12/17 09:00 03/14/17 08:59 02/12/17 07:55 64 MG Nicotine (Nicoderm Cq 21MG Patch) 1 patch QAM TD 02/12/17 09:00 03/14/17 08:59 02/12/17 10:17 1 PATCH Miscellaneous (Remove Nicoderm Patch) 1 ea HS N/A 02/12/17 21:00 03/14/17 20:59 Last 24 Hours Test 02/11/17 16:25 02/12/17 05:28 Sodium Level 132 mmol/L 131 mmol/L Potassium Level 4.4 mmol/L 3.7 mmol/L Chloride Level 96 mmol/L 97 mmol/L Carbon Dioxide Level 31 mmol/L 28 mmol/L Anion Gap 5.0 mmol/L 6.0 mmol/L Blood Urea Nitrogen 8 mg/dl 3 mg/dl Creatinine 0.39 mg/dl 0.25 mg/dl Est Creatinine Clear Calc Drug Dose 163.9 ml/min 255.7 ml/min Estimated GFR () > 150.0 > 150.0 Estimated GFR (Non- 138.0 > 150.0 BUN/Creatinine Ratio 19.6 13.1 Random Glucose 102 mg/dl 91 mg/dl Calcium Level 7.3 mg/dl 7.5 mg/dl Phosphorus Level 3.5 mg/dl 3.6 mg/dl Magnesium Level 1.4 mg/dl 2.0 mg/dl Assessment & Plan 51 y/o cachectic M w/ hx EtOH withdrawal/severe DTs 07/2016 and homelessness admitted with severe hypokalemia, hypophosphatemia, hyponatremia on 02/08 after presenting with generalized weakness. Lactic acid was normal. Serum sodium was 123 on presentation at 1400 02/08. Major lytes issues--low Na+, Low K, Low mag, Low PHos. After many days all lytes are fine this AM. Cause is major nutrional deficiency from poor diet and heavy alcohol. d/c Iv fluid now. next labs in AM.
--- NOTE | 2017-02-12 14:03 | Progress Note ---
Internal Med Progress Note Date of Service: Feb 12, 2017. Provider Documentation: SUBJECTIVE: feels weak and fatigued , no complain of SOB , no nausea or abdominal pa in diarrhea has improved OBJECTIVE: Vital Signs-as noted below Exam: General-cachetic , disheveled Eyes-sclera non icteric Lungs-CTA Heart-regular Abdomen-soft, scaphoid Extremities-no rash or deformity , no edema Neuro-no focal deficit , hard of hearing Lab data as noted below. ASSESSMENT & PLAN: SEVERE ELECTROLYTE ABNORMALITIES- Hyponatremia, Hypokalemia, Hypophosphatemia Likely in setting of alcoholism, inadequate nutrition, lack of self care, homeless situation having ongoing diarrhea -resolved after aggressive replacement -Nephrology consulted.appreciate input ONGOING DIARRHEA : improved with PRN Imodium possibly contributing to electrolyte imbalance stool C diff negative GENERALIZED WEAKNESS : due to above correct lytes PT/OT eval requested -appreciate input EKG CHANGED : possible due to electrolyte derangements denies of any chest pain or SOB serial Cardiac markers negative normal electrolytes today no arrhythmia in tele stable to transfer to Medical floor ELEVATED ANION GAP resolved Likely secondary to alcoholic ketoacidosis -Lactic acid WNL -resolved Gap 24-> 12 -> 9 with IV hydration D/C IVF LEUCOCYTOSIS possible from dehydration WBC normalized cont IV hydration -No indication of antibiotics without any signs of infection/sepsis HX OF ALCOHOLISM no sign of withdrawal so far Known alcoholic - drinks 2-3 beers daily. Last one 2 days ago and alcohol levels normal now -cont to monitor for alcohol withdrawal. Last admission 07/2016- had to be in ICU for DTs and intubated -IV banana bag given in ER -Alcohol withdrawal protocol - Gabapentin and Lorezepam PRN no s/s of withdrawal pt is counselled for alcohol abstinence , willing to try for alcohol rehab referral to [facility] made by [facility] service SEVERE PROTEIN CALORIE MALNUTRITION Secondary to alcohol abuse /lack of personal care/adequate nutrition in setting of homelessness -BMI 16.9 -dietary consult requested for supplement -appreciate input DVT PROPHYLAXIS scds/teds re: thrombocytopenia DISPOSITION transfer to medical floor Home less Discussed regarding possible senior care for more support PT/OT ; social service consulted appreciate input [facility] not be able to accept him due to alcohol abuse hx pt needs to go to Alcohol rehab prior referral made to [facility] counselled pt , willing for for alcohol rehab Vital Signs: Date Time Temp Pulse Resp B/P (MAP) Pulse Ox O2 Delivery O2 Flow Rate FiO2 02/12/17 13:40 37.3 79 18 100 02/12/17 12:08 37.3 79 18 114/73 (87) 100 Room Air 02/12/17 12:00 Room Air 02/12/17 08:33 37.0 83 18 130/85 (100) 96 Room Air 02/12/17 08:00 Room Air 02/12/17 04:28 37.1 78 20 115/71 (86) 96 Room Air 02/12/17 04:00 Room Air 02/12/17 00:02 Room Air 02/11/17 23:36 36.7 89 20 115/73 (87) 94 Room Air 02/11/17 20:00 Room Air 02/11/17 19:44 37.3 95 20 117/79 (92) 96 Room Air 02/11/17 16:00 Room Air 02/11/17 15:41 37.6 86 16 125/73 (90) 98 Room Air Lab Results: Results Past 24 Hours Test 02/11/17 16:25 02/12/17 05:28 Range/Units Sodium Level 132 131 136-145 mmol/L Potassium Level 4.4 3.7 3.5-5.1 mmol/L Chloride Level 96 97 98-107 mmol/L Carbon Dioxide Level 31 28 21-32 mmol/L Anion Gap 5.0 6.0 3-11 mmol/L Blood Urea Nitrogen 8 3 7-18 mg/dl Creatinine 0.39 0.25 0.60-1.40 mg/dl Est Creatinine Clear Calc Drug Dose 163.9 255.7 ml/min Estimated GFR () > 150.0 > 150.0 Estimated GFR (Non- 138.0 > 150.0 BUN/Creatinine Ratio 19.6 13.1 10-20 Random Glucose 102 91 70-99 mg/dl Calcium Level 7.3 7.5 8.5-10.1 mg/dl Phosphorus Level 3.5 3.6 2.5-4.9 mg/dl Magnesium Level 1.4 2.0 1.8-2.4 mg/dl
[2017-02-12] MEDS ORDERED: NICO21DI4 TD (14:06)
[2017-02-12] MEDS ORDERED: KCLP20 PO (14:06)
[2017-02-12] MEDS ORDERED: FLV1 PO (14:06)
[2017-02-12] MEDS ORDERED: POTTAB2 PO (14:06)
[2017-02-12] MEDS ORDERED: THM100 PO (14:06)
[2017-02-12] MEDS ORDERED: SLWMEC PO (14:06)
--- NOTE | 2017-02-12 14:09 | Discharge Instructions ---
Discharge Instructions Date of Service Feb 12, 2017. Admission Reason for Admission: Hypokalemia Discharge Discharge Diagnosis / Problem: SEVERE ELECTROLYTE DERANGEMENS /MALNUTITION / ALCOHOL ABUSE Discharge Goals Goal(s): Decrease discomfort, Improve disease control, Diagnostic testing, Therapeutic intervention Activity Recommendations Activity Limitations: as noted below ( TOLERATED ) Shower/Bathe: no limitations . Instructions / Follow-Up Instructions / Follow-Up NEED TO ESTABLISH CARE WITH FAMILY PHYSICIAN NEED CLOSE FOLLOW UP AND PERIODIC LAB CHECK IT IS VERY IMPORTANT TO QUIT DRINKING ALCOHOL -CAN CAUSE SEVERE ELECTROLYTE DEFICIENCY /MALNUTRITION /CARDIAC ARRHYTHMIA - Current Hospital Diet Patient's current hospital diet: Regular Diet Discharge Diet Recommended Diet: Regular Diet Pending Studies Studies pending at discharge: no Medical Emergencies . Who to Call and When: Medical Emergencies: If at any time you feel your situation is an emergency, please call 911 immediately. . Non-Emergent Contact Non-Emergency issues call your: Primary Care Provider . . "Provider Documentation" section prepared by Neisha Norman. . Supervisor Whipped Topping Recommendations Supervisor Whipped Topping Recommendations: 51/M alcoholic with cachexia admitted with weakness related with severe electrolyte abnormality. Bp is fine. Given history above will have to assume this is nutritional unless proved otherwise. reviewed labs. Plan: 1 serial check of the BMP brandon K. 2 lower NS with 20 k.cl to 75/hr. 3. K.cl 40 meq po now and iv plus the k.cl 30 mmol. 4 repeat BMP at 8 PM--call me with result. 5. He will need a lot o K.cl as the K deficit is likely more than 300 meq but could be even more. 6 Advice communicated with nurse and I will follow labs overnight. Venu Manzano VTE Core Measure Inpt VTE Proph given/why not?: Christiano Tim, SCD's
[2017-02-12 14:15] VITALS: BP 125/87; PULSE 86; TEMP 36.7; O2SAT 96
[2017-02-12 15:33] VITALS: BP 114/79; PULSE 88; TEMP 37; O2SAT 97
[2017-02-12] MEDS: THIAMINE HCL 100 MG TAB PO SCH (20:26)
[2017-02-13 00:02] VITALS: BP 103/69; PULSE 82; TEMP 37.4; O2SAT 95
[2017-02-13 07:19] VITALS: BP 116/73; PULSE 78; TEMP 36.9; O2SAT 96
[2017-02-13 08:00] VITALS: O2SAT 96
[2017-02-13 08:08] LABS: BLOOD UREA NITROGEN 4 mg/dl (7-18); CALCIUM 8.1 mg/dl (8.5-10.1); CARBON DIOXIDE 27 mmol/L (21-32); CHLORIDE 94 mmol/L (98-107); CREATININE 0.38 mg/dl (0.60-1.40); GLUCOSE 87 mg/dl (70-99); MAGNESIUM 1.7 mg/dl (1.8-2.4); PHOSPHORUS 4.1 mg/dl (2.5-4.9); POTASSIUM 3.6 mmol/L (3.5-5.1); SODIUM 129 mmol/L (136-145)
[2017-02-13] MEDS: POT PHOSPHATE MONOBASIC W/ SOD TAB PO SCH ×2 (08:17→10:01)
[2017-02-13] MEDS: MULTIVITAMIN TAB PO SCH ×2 (08:17→10:00)
[2017-02-13] MEDS: MAGNESIUM CHLORIDE 64MG DELAYED REL TAB PO SCH ×3 (08:17→10:00)
[2017-02-13] MEDS: POTASSIUM CHLORIDE PWD 20 MEQ PACK PO SCH ×4 (08:19→21:18)
[2017-02-13] MEDS: CALCIUM CARBONATE 1250 MG/5 ML PO SCH ×4 (08:22→21:17)
[2017-02-13] MEDS: NICOTINE 21 MG/24 HR TDSY TD SCH (10:00)
--- NOTE | 2017-02-13 13:53 | Nephrology Progress Note ---
Nephrology Progress Note Date of Service: Feb 13, 2017. Subjective No new issues. eating now but poorly. Now out of ICU refusing some meds Objective Date Time Temp Pulse Resp B/P (MAP) Pulse Ox O2 Delivery O2 Flow Rate FiO2 02/13/17 08:00 96 Room Air 02/13/17 07:19 36.9 78 16 116/73 (87) 96 Room Air 02/13/17 00:02 37.4 82 16 103/69 (80) 95 Room Air 02/13/17 00:00 Room Air 02/12/17 16:00 Room Air 02/12/17 15:33 37.0 88 18 114/79 (91) 97 Room Air 02/12/17 14:15 36.7 86 18 125/87 (100) 96 Room Air Physical Exam: General-[frail and cachectic] Neck-[supple] Lungs-[wheezing] Heart-[RRR] Abdomen-[Soft] Extremities-[No edema] Current Inpatient Medications Medications (Trade) Dose Ordered Sig/Jaylene Route Start Time Stop Time Status Last Admin Dose Admin Acetaminophen (Tylenol Tab) 650 mg Q4H PRN PO 02/08/17 15:45 03/10/17 15:44 Ondansetron HCl (Zofran Inj) 4 mg Q6H PRN IV 02/08/17 15:45 03/10/17 15:44 Thiamine HCl (Vitamin B-1 Tab) 100 mg Q24H PO 02/08/17 20:00 03/10/17 19:59 02/12/17 20:26 100 MG Lorazepam (Ativan Tab) PRN Dosing -Active Protocol UD PRN PO 02/08/17 15:45 03/10/17 15:44 Lorazepam (Ativan Inj) 1 mg ONE PRN IV 02/08/17 15:45 Multivitamins (Multivitamin Tab) 1 tab DAILY PO 02/09/17 09:00 03/11/17 08:59 02/13/17 10:00 1 TAB Folic Acid (Folvite Tab) 1 mg DAILY PO 02/09/17 09:00 03/11/17 08:59 02/13/17 10:01 1 MG Calcium Carbonate (Calcium Carbonate Susp) 1,250 mg TID PO 02/09/17 21:00 03/11/17 20:59 02/13/17 09:58 1,250 MG Loperamide HCl (Imodium Cap) 2 mg Q8 PRN PO 02/10/17 16:00 03/12/17 15:59 02/10/17 23:56 2 MG Nicotine (Nicoderm Cq 21MG Patch) 1 patch QAM TD 02/12/17 09:00 03/14/17 08:59 02/13/17 10:00 1 PATCH Miscellaneous (Remove Nicoderm Patch) 1 ea HS N/A 02/12/17 21:00 03/14/17 20:59 02/12/17 21:27 1 EA Potassium Chloride (Klor-Con Pwd) 20 meq TID PO 02/13/17 14:00 03/11/17 20:59 UNV Last 24 Hours Test 02/13/17 07:10 Sodium Level 129 mmol/L Potassium Level 3.6 mmol/L Chloride Level 94 mmol/L Carbon Dioxide Level 27 mmol/L Anion Gap 8.0 mmol/L Blood Urea Nitrogen 4 mg/dl Creatinine 0.38 mg/dl Est Creatinine Clear Calc Drug Dose 168.2 ml/min Estimated GFR () > 150.0 Estimated GFR (Non- 139.5 BUN/Creatinine Ratio 10.0 Random Glucose 87 mg/dl Calcium Level 8.1 mg/dl Phosphorus Level 4.1 mg/dl Magnesium Level 1.7 mg/dl Assessment & Plan 51 y/o cachectic M w/ hx EtOH withdrawal/severe DTs 07/2016 and homelessness admitted with severe hypokalemia, hypophosphatemia, hyponatremia on 02/08 after presenting with generalized weakness. Lactic acid was normal. Serum sodium was 123 on presentation at 1400 ---02/08. Major lytes issues--low Na+, Low K, Low mag, Low PHos. Cause is major nutrional deficiency from poor diet and heavy alcohol. refused mag tab. will give 1 gm iv x 1 now. Lower k supplement to 20 tid. D/c Phos tab now that his Phos is 4+. na remains low but fairly stable at about 130. Check urine Osm .
[2017-02-13] MEDS ORDERED: MAGNESIUM SULFATE 1GM / D5W 1 GM in PREMIXED IN D5W 100 ML IV ONE (14:15)
--- NOTE | 2017-02-13 14:42 | Progress Note ---
Subjective Date of Service: Feb 13, 2017. Subjective Pt evaluation today including: conversation w/ patient, physical exam, lab review, review of studies, review of inpatient medication list Saw/examined the patient in room 252 Eager to get out of the hospital - has tried to elope a few times Wants to smoke - I let him know that that would not be allowed Agreeable to be discharged to rehab Problem List Medical Problems: (1) Alcohol dependence Status: Acute (2) Closed left clavicular fracture Status: Acute (3) Elbow fracture, left Status: Acute (4) Fall as cause of accidental injury in residential institution as place of occurrence Status: Acute (5) Generalized weakness Status: Acute (6) Homeless Status: Acute (7) Hypokalemia Status: Acute (8) Hypophosphatemia Status: Acute (9) Malnutrition Status: Acute Review of Systems Constitutional: + weakness, No fever, No chills Cardiac: No chest pain Abdomen: No pain, No nausea, No vomiting, No diarrhea Heme: No abnormal bleeding/bruising Medications Current Inpatient Medications Medications (Trade) Dose Ordered Sig/Jaylene Route Start Time Stop Time Status Last Admin Dose Admin Acetaminophen (Tylenol Tab) 650 mg Q4H PRN PO 02/08/17 15:45 03/10/17 15:44 Ondansetron HCl (Zofran Inj) 4 mg Q6H PRN IV 02/08/17 15:45 03/10/17 15:44 Thiamine HCl (Vitamin B-1 Tab) 100 mg Q24H PO 02/08/17 20:00 03/10/17 19:59 02/12/17 20:26 100 MG Lorazepam (Ativan Tab) PRN Dosing -Active Protocol UD PRN PO 02/08/17 15:45 03/10/17 15:44 Lorazepam (Ativan Inj) 1 mg ONE PRN IV 02/08/17 15:45 Multivitamins (Multivitamin Tab) 1 tab DAILY PO 02/09/17 09:00 03/11/17 08:59 02/13/17 10:00 1 TAB Folic Acid (Folvite Tab) 1 mg DAILY PO 02/09/17 09:00 03/11/17 08:59 02/13/17 10:01 1 MG Calcium Carbonate (Calcium Carbonate Susp) 1,250 mg TID PO 02/09/17 21:00 03/11/17 20:59 02/13/17 09:58 1,250 MG Loperamide HCl (Imodium Cap) 2 mg Q8 PRN PO 02/10/17 16:00 03/12/17 15:59 02/10/17 23:56 2 MG Nicotine (Nicoderm Cq 21MG Patch) 1 patch QAM TD 02/12/17 09:00 03/14/17 08:59 02/13/17 10:00 1 PATCH Miscellaneous (Remove Nicoderm Patch) 1 ea HS N/A 02/12/17 21:00 03/14/17 20:59 02/12/17 21:27 1 EA Potassium Chloride (Klor-Con Pwd) 20 meq TID PO 02/13/17 14:00 03/11/17 20:59 Magnesium Sulfate 1 gm/Prmx 100 ml @ 100 mls/hr NOW ONCE IV 02/13/17 14:15 02/13/17 15:14 Magnesium Sulfate 1 gm/Prmx 100 ml @ 100 mls/hr Q1H IV 02/13/17 14:30 02/13/17 16:29 UNV Objective Vital Signs Date Time Temp Pulse Resp B/P (MAP) Pulse Ox O2 Delivery O2 Flow Rate FiO2 02/13/17 08:00 96 Room Air 02/13/17 07:19 36.9 78 16 116/73 (87) 96 Room Air 02/13/17 00:02 37.4 82 16 103/69 (80) 95 Room Air 02/13/17 00:00 Room Air 02/12/17 16:00 Room Air 02/12/17 15:33 37.0 88 18 114/79 (91) 97 Room Air 02/12/17 14:15 36.7 86 18 125/87 (100) 96 Room Air Physical Exam General Appearance: no apparent distress, + cachetic, + thin Respiratory/Chest: lungs clear, normal breath sounds, no respiratory distress, no accessory muscle use Cardiovascular: regular rate, rhythm, no edema, no murmur Abdomen: normal bowel sounds, non tender, soft Laboratory Results Last 24 Hours Test 02/13/17 07:10 Sodium Level 129 mmol/L Potassium Level 3.6 mmol/L Chloride Level 94 mmol/L Carbon Dioxide Level 27 mmol/L Anion Gap 8.0 mmol/L Blood Urea Nitrogen 4 mg/dl Creatinine 0.38 mg/dl Est Creatinine Clear Calc Drug Dose 168.2 ml/min Estimated GFR () > 150.0 Estimated GFR (Non- 139.5 BUN/Creatinine Ratio 10.0 Random Glucose 87 mg/dl Calcium Level 8.1 mg/dl Phosphorus Level 4.1 mg/dl Magnesium Level 1.7 mg/dl Assessment and Plan This is a 51 year old homeless man with a history of alcoholism, tobacco use disorder, HTN presents with generalized weakness Electrolyte Abnormalities Hyponatremia, Hypokalemia, Hypomagnesium and hypophosphatemia this is all in the setting of alcohol use and inadequate nutrition patient is thin/cachectic - with a BMI of only 16 most of these are resolved, will give another 2grams of Mg prior to discharge plan is to discharge to alcohol rehab Hx. of Alcoholism no sign of withdrawal so far Known alcoholic - drinks 2-3 beers daily. 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
[2017-02-13] MEDS ORDERED: MAGNESIUM SULFATE 1GM / D5W 1 GM in PREMIXED IN D5W 100 ML IV SCH (15:15)
[2017-02-13 15:32] VITALS: BP 105/70; PULSE 101; TEMP 37.6; O2SAT 95
[2017-02-13 19:50] VITALS: BP 106/73; PULSE 79; TEMP 37.7; O2SAT 96
[2017-02-13] MEDS: THIAMINE HCL 100 MG TAB PO SCH (20:11)
[2017-02-13 23:10] VITALS: BP 118/79; PULSE 84; TEMP 36.6; O2SAT 95
[2017-02-14 07:08] VITALS: BP 122/78; PULSE 81; TEMP 36.4; O2SAT 95
[2017-02-14] MEDS: MULTIVITAMIN TAB PO SCH (08:13)
[2017-02-14] MEDS: POTASSIUM CHLORIDE PWD 20 MEQ PACK PO SCH ×2 (08:14→14:22)
[2017-02-14] MEDS: CALCIUM CARBONATE 1250 MG/5 ML PO SCH ×2 (08:16→14:20)
[2017-02-14] MEDS: NICOTINE 21 MG/24 HR TDSY TD SCH (08:16)
--- NOTE | 2017-02-14 13:39 | Progress Note ---
Subjective Date of Service: Feb 14, 2017. Subjective Pt evaluation today including: conversation w/ patient, physical exam, lab review, review of studies, review of inpatient medication list Saw/examined the patient in room 252 Doing well Denies any symptoms Problem List Medical Problems: (1) Alcohol dependence Status: Acute (2) Closed left clavicular fracture Status: Acute (3) Elbow fracture, left Status: Acute (4) Fall as cause of accidental injury in residential institution as place of occurrence Status: Acute (5) Generalized weakness Status: Acute (6) Homeless Status: Acute (7) Hypokalemia Status: Acute (8) Hypophosphatemia Status: Acute (9) Malnutrition Status: Acute Review of Systems Constitutional: No fever, No chills, No weakness Respiratory: No shortness of breath Cardiac: No chest pain Abdomen: No pain, No nausea, No vomiting, No diarrhea Male : No dysuria, No urinary frequency Heme: No abnormal bleeding/bruising Medications Current Inpatient Medications Medications (Trade) Dose Ordered Sig/Jaylene Route Start Time Stop Time Status Last Admin Dose Admin Acetaminophen (Tylenol Tab) 650 mg Q4H PRN PO 02/08/17 15:45 03/10/17 15:44 02/13/17 20:12 650 MG Ondansetron HCl (Zofran Inj) 4 mg Q6H PRN IV 02/08/17 15:45 03/10/17 15:44 Thiamine HCl (Vitamin B-1 Tab) 100 mg Q24H PO 02/08/17 20:00 03/10/17 19:59 02/13/17 20:11 100 MG Lorazepam (Ativan Tab) PRN Dosing -Active Protocol UD PRN PO 02/08/17 15:45 03/10/17 15:44 Lorazepam (Ativan Inj) 1 mg ONE PRN IV 02/08/17 15:45 Multivitamins (Multivitamin Tab) 1 tab DAILY PO 02/09/17 09:00 03/11/17 08:59 02/14/17 08:13 1 TAB Folic Acid (Folvite Tab) 1 mg DAILY PO 02/09/17 09:00 03/11/17 08:59 02/14/17 08:13 1 MG Calcium Carbonate (Calcium Carbonate Susp) 1,250 mg TID PO 02/09/17 21:00 03/11/17 20:59 02/14/17 08:16 1,250 MG Loperamide HCl (Imodium Cap) 2 mg Q8 PRN PO 02/10/17 16:00 03/12/17 15:59 02/10/17 23:56 2 MG Nicotine (Nicoderm Cq 21MG Patch) 1 patch QAM TD 02/12/17 09:00 03/14/17 08:59 02/14/17 08:16 1 PATCH Miscellaneous (Remove Nicoderm Patch) 1 ea HS N/A 02/12/17 21:00 03/14/17 20:59 02/13/17 20:13 1 EA Potassium Chloride (Klor-Con Pwd) 20 meq TID PO 02/13/17 14:00 03/11/17 20:59 02/14/17 08:14 20 MEQ Objective Vital Signs Date Time Temp Pulse Resp B/P (MAP) Pulse Ox O2 Delivery O2 Flow Rate FiO2 02/14/17 07:42 Room Air 02/14/17 07:08 36.4 81 20 122/78 (93) 95 Room Air 02/13/17 23:30 Room Air 02/13/17 23:10 36.6 84 20 118/79 (92) 95 Room Air 02/13/17 19:50 37.7 79 18 106/73 (84) 96 Room Air 02/13/17 16:00 Room Air 02/13/17 15:32 37.6 101 18 105/70 (82) 95 Room Air Physical Exam General Appearance: no apparent distress, + cachetic, + thin, + pertinent finding (poor dentition, disheveled appearance) Cardiovascular: regular rate, rhythm, no edema, no murmur Extremities: normal inspection, no pedal edema Neurologic/Psychiatric: no motor/sensory deficits, alert, normal mood/affect Laboratory Results Last 24 Hours Test 02/14/17 07:06 Phosphorus Level 3.9 mg/dl Assessment and Plan This is a 51 year old homeless man with a history of alcoholism, tobacco use disorder, HTN presents with generalized weakness Electrolyte Abnormalities Hyponatremia, Hypokalemia, Hypomagnesium and hypophosphatemia this is all in the setting of alcohol use and inadequate nutrition patient is thin/cachectic - with a BMI of only 16 most of these are resolved, will give another 2grams of Mg prior to discharge plan is to discharge to alcohol rehab - patient is refusing, so we will discharge to the streets; patient has information about AA and knows the dangers of alcohol abuse Hx. of Alcoholism no sign of withdrawal so far Known alcoholic - drinks 2-3 beers daily. Last one 2 days ago and alcohol levels normal now has a history of DTs and intubation in July 2016 EtOH withdrawal protocol in place plan is to discharge to alcohol rehab - patient is refusing, so we will discharge to the streets; patient has information about AA and knows the dangers of alcohol abuse Generalized Weakness PT/OT malnutrition, electrolyte disturbances, diarrhea Ongoing Diarrhea - resolved continue Imodium PRN EKG changes secondary to electrolyte disturbances no chest pain no troponin elevation now off of tele High Anion Gap Acidosis - resolved secondary to alcoholism Severe Protein Calorie Malnutrition low BMI water resource agent consulted for further input will need protein shakes, supplements DVT ppx SCDs, ambulation Plan to d/c today (02/14)
--- NOTE | 2017-02-14 13:41 | Discharge Summary ---
Discharge Summary Date of Service Feb 14, 2017. Discharge Summary Admission Date: Feb 08, 2017 at 15:42 Discharge Date: Feb 14, 2017 Discharge Disposition: Home Principal Diagnosis: Severe Electrolyte Abnormalities Alcohol Abuse Medication Reconciliation New Medications: Folic Acid (Folic Acid) 1 Mg Tab 1 MG PO DAILY for 30 Days, #30 TAB Magnesium Chloride (Slow-Mag Tab) 64 Mg Tabcr 64 MG PO QAM for 30 Days, #30 TABS Nicotine (Nicoderm Cq) 21 Mg/24 Hr Dis 1 PATCH TD QAM for 30 Days, #30 PATCH Pot Phosphate Monobasic W/ Sod (Phospha 250 Neutral) 1 Tab Tab 2 TAB PO TID for 30 Days, #180 TAB Potassium Chloride (Klor-Con) 20 Meq Pow 40 MEQ PO BID for 30 Days, #120 TABS Thiamine HCl (Vitamin B-1) 100 Mg Tab 100 MG PO Q24H for 30 Days, #30 TAB Admission Information HPI (per Admitting provider): HISTORY OF PRESENT ILLNESS: The patient is a pleasant 51-year-old male, who resides in a [facility], history of alcoholism, smoking and chart history of hypertension presenting with generalized weakness. Per patient, he had 2-3 beers 2 days ago. [place] weak, legs giving away and thus came to ER. Poor historian, unable to get much history from him. Denies any fever, chills, cough, chest pain, SOB, nausea, vomiting, diarrhea, localized weakness in extremities, abdominal pain. In ED, he is hemodynamically stable. Labs - K 1.9, Phosphorus- 1.2, Na 123. IV NS x 1 bag, Alcohol level < 3. Received a bag of IV banana bag x 1 in ER. Will admit him for severe electrolyte abnormalities. Physical Exam (per Admitting): General Appearance: no apparent distress, + pertinent finding (dissheveled) Head: normocephalic, atraumatic Eyes: PERRL ENT: hearing grossly normal Neck: supple, no JVD Respiratory/Chest: chest non-tender, lungs clear, no respiratory distress, no accessory muscle use, + decreased breath sounds Cardiovascular: regular rate, rhythm, no murmur Abdomen/GI: normal bowel sounds, non tender, soft Extremities/Musculoskelatal: no calf tenderness, non-tender Neurologic/Psych: no motor/sensory deficits, alert, oriented x 3 Hospital Course This is a 51 year old homeless man with a history of alcoholism, tobacco use disorder, HTN presents with generalized weakness Electrolyte Abnormalities Hyponatremia, Hypokalemia, Hypomagnesium and hypophosphatemia this is all in the setting of alcohol use and inadequate nutrition patient is thin/cachectic - with a BMI of only 16 most of these are resolved, will give another 2grams of Mg prior to discharge plan is to discharge to alcohol rehab - patient is refusing, so we will discharge to the streets; patient has information about AA and knows the dangers of alcohol abuse Hx. of Alcoholism no sign of withdrawal so far Known alcoholic - drinks 2-3 beers daily. Last one 2 days ago and alcohol levels normal now has a history of DTs and intubation in July 2016 EtOH withdrawal protocol in place plan is to discharge to alcohol rehab - patient is refusing, so we will discharge to the streets; patient has information about AA and knows the dangers of alcohol abuse Generalized Weakness PT/OT malnutrition, electrolyte disturbances, diarrhea Ongoing Diarrhea - resolved continue Imodium PRN EKG changes secondary to electrolyte disturbances no chest pain no troponin elevation now off of tele High Anion Gap Acidosis - resolved secondary to alcoholism Severe Protein Calorie Malnutrition low BMI medication reconciliation technician consulted for further input will need protein shakes, supplements DVT ppx SCDs, ambulation Plan to d/c today (02/14) Total time spent on discharge = 20 minutes This includes examination of the patient, discharge planning, medication reconciliation, and communication with other providers. Discharge Instructions NEED TO ESTABLISH CARE WITH FAMILY PHYSICIAN NEED CLOSE FOLLOW UP AND PERIODIC LAB CHECK IT IS VERY IMPORTANT TO QUIT DRINKING ALCOHOL -CAN CAUSE SEVERE ELECTROLYTE DEFICIENCY /MALNUTRITION /CARDIAC ARRHYTHMIA -
[2017-02-14 14:31] VITALS: BP 122/78; PULSE 81; TEMP 36.4; O2SAT 95
[2017-02-14] MEDS ORDERED: FLV1 PO (14:59)
[2017-02-14] MEDS ORDERED: THM100 PO (14:59)
[2017-02-14] MEDS ORDERED: SLWMEC PO (14:59)
[2017-02-14] MEDS ORDERED: NICO21DI4 TD (14:59)
[2017-03-03] MEDS ORDERED: OMEP40CA41 PO (14:49)
[2017-03-08] MEDS ORDERED: FERR325T5 PO (14:25)
[2017-03-08] MEDS ORDERED: MRLP17X PO (14:25)
[2017-03-08] MEDS ORDERED: NICO14DI5 TD (14:25)
[2017-03-08] MEDS ORDERED: SENN8.6T7 PO (14:25)
[2017-03-08] MEDS ORDERED: [UNRECOGNIZED DRUG - CODE] PO (14:25)
[2017-03-08] MEDS ORDERED: SLWMEC PO (14:25)
[2017-03-08] MEDS ORDERED: TYLOTC500 PO (14:25)
[2017-03-08] MEDS ORDERED: RXC5 PO (14:25)
[2017-03-08] MEDS ORDERED: LVNIS40 SQ (14:25)
[2017-03-08] MEDS ORDERED: MULTTAB58 PO (14:33)
[2017-03-14] MEDS ORDERED: ENOX40IN SQ (11:24)
[2017-03-14] MEDS ORDERED: ASCO500T16 PO (11:24)
[2017-03-14] MEDS ORDERED: FLV1 PO (11:25)
[2017-03-14] MEDS ORDERED: POLY335019 PO (11:25)
[2017-03-14] MEDS ORDERED: FERR1TAB13 PO (11:25)
[2017-03-14] MEDS ORDERED: ACET1TAB84 PO (11:25)
[2017-03-14] MEDS ORDERED: OMEP40CA41 PO (11:25)
[2017-03-14] MEDS ORDERED: SENN8.6C PO (11:25)
[2017-03-14] MEDS ORDERED: NICO14DI31 TD (11:25)
[2017-03-14] MEDS ORDERED: ONDA4TAB65 PO (11:25)
[2017-03-14] MEDS ORDERED: OXYC1TAB3 PO (11:25)
[2017-03-14] MEDS ORDERED: THIA100T11 PO (11:25)
[2017-03-14] MEDS ORDERED: MULT-506 PO (11:25)
[2017-04-25] MEDS ORDERED: MOML PO (07:42)
[2017-04-25] MEDS ORDERED: BISA10SU3 PR (07:42)
[2017-04-25] MEDS ORDERED: LANS30CA12 PO (07:42)
[2017-04-25] MEDS ORDERED: SODIENE PR (07:42)
[2017-04-25] MEDS ORDERED: MULT1LIQ6 PO (07:42)
[2017-04-25] MEDS ORDERED: FERR15DR5 PO (07:42)
[2017-04-25] MEDS ORDERED: DOCUSATE/SENNA PO (07:42)
[2017-04-25] MEDS ORDERED: ACET160S3 PO (07:42)
== END 2017-02-14 16:30 | disposition home or self-care (01) | DRG 642 ==
LOC: EDBD 10:44 → C.EDB 10:45 → C.2E 15:42 → ENRESERV 15:48 → C.MS2W 02-12 13:02 → ENRESERV 02-12 13:11
PROVIDERS: ADMIT Internal Medicine; ATTEND Family Medicine
DX: E83.39 Other disorders of phosphorus metabolism (principal); E87.6 Hypokalemia; E43 Unspecified severe protein-calorie malnutrition; Z68.1 Body mass index [BMI] 19.9 or less, adult; F10.20 Alcohol dependence, uncomplicated; E87.1 Hypo-osmolality and hyponatremia; E87.2 Acidosis; I10 Essential (primary) hypertension; F17.200 Nicotine dependence, unspecified, uncomplicated; Z59.0 Homelessness; Z88.0 Allergy status to penicillin

== ENCOUNTER 2017-02-14 20:49 | Inpatient (IN) | payer OTHER ==
[~2017-02-14] VITALS: Ht 180.3 cm; Wt 53.0 kg
[~2017-02-14 20:49] MED LIST changes: -APR50 PO; -ASCA500 PO; +KCLP20 PO; -MRLP17 PO; -NCDT14 TD; +NICO21DI4 TD; -NRV5 PO; -OXYC7.5T62 PO; +POTTAB2 PO; -PRT40 PO; +SLWMEC PO; -TYL325X PO
[2017-02-14 22:17] LABS: BLOOD UREA NITROGEN 6 mg/dl (7-18); BUN/CREATININE RATIO 12.9 (10-20); CALCIUM 7.9 mg/dl (8.5-10.1); CARBON DIOXIDE 23 mmol/L (21-32); CHLORIDE 95 mmol/L (98-107); CREATININE 0.45 mg/dl (0.60-1.40); GLUCOSE 82 mg/dl (70-99); POTASSIUM 4.1 mmol/L (3.5-5.1); SODIUM 127 mmol/L (136-145)
[2017-02-14] MEDS ORDERED: SODIUM CHLORIDE 0.9% 1000ML 1,000 ML IV STA (22:35)
[2017-02-14 22:51] LABS: BASO % 0.8 %; BASO ABS # 0.07 K/uL (0-0.2); COMPLETE YES; EOS % 0.7 %; HEMATOCRIT 25.8 % (42-52); LYMPH % 12.6 %; LYMPH ABS # 1.09 K/uL (1.2-3.4); MEAN CELL VOLUME 93.8 fL (80-100); MEAN CORPUSCULAR HEMOGLOBIN 33.5 pg (25-34); MEAN CORPUSCULAR HGB CONC 35.7 g/dl (32-36); MEAN PLATELET VOLUME 9.2 fL (7.4-10.4); MONO % 19.5 %; NEUT % 65.4 %; PLATELET COUNT 196 K/uL (130-400); RED BLOOD COUNT 2.75 M/uL (4.7-6.1); WHITE BLOOD COUNT 8.67 K/uL (4.8-10.8)
[2017-02-14 23:01] LABS: PROTHROMBIN TIME (PATIENT) 10.2 SECONDS (9.0-12.0)
[2017-02-14 23:09] LABS: ALKALINE PHOSPHATASE 70 U/L (45-117); ALT/SGPT 44 U/L (12-78); AST/SGOT 30 U/L (15-37)
[2017-02-14 23:27] LABS: URINE APPEARANCE CLEAR (CLEAR); URINE BILIRUBIN NEG (NEG); URINE COLOR YELLOW; URINE NITRITE NEG (NEG); URINE PH 6.5 (4.5-7.5); URINE SPECIFIC GRAVITY 1.009 (1.000-1.030); UROBILINOGEN NEG (NEG)
[2017-02-14 23:28] LABS: MAGNESIUM 1.8 mg/dl (1.8-2.4)
[2017-02-14 23:31] LABS: MANUAL MICROSCOPIC REQUIRED? NO; REVIEW REQ? NO
[2017-02-15] MEDS ORDERED: OPTIRAY 320 IV PRN
[2017-02-15] MEDS ORDERED: LEVAQUIN 750MG / 150ML D5W IV STA (00:34)
[2017-02-15 01:12] LABS: HEMATOCRIT 29.2 % (42-52)
[2017-02-15 01:31] LABS: BLOOD UREA NITROGEN 3 mg/dl (7-18); BUN/CREATININE RATIO 10.4 (10-20); CALCIUM 7.9 mg/dl (8.5-10.1); CARBON DIOXIDE 26 mmol/L (21-32); CHLORIDE 100 mmol/L (98-107); CREATININE 0.33 mg/dl (0.60-1.40); GLUCOSE 82 mg/dl (70-99); POTASSIUM 3.7 mmol/L (3.5-5.1); SODIUM 133 mmol/L (136-145)
[2017-02-15] MEDS ORDERED: ASPIRIN 81 MG ECTAB PO STA (02:32)
[2017-02-15] MEDS ORDERED: OXYCODONE/ACETAMINOPHEN 5-325 TAB PO PRN (02:45)
[2017-02-15] MEDS ORDERED: GABAPENTIN 600 MG TAB PO SCH (02:45)
[2017-02-15] MEDS ORDERED: LORAZEPAM 2 MG/ML 1 ML VIAL IV PRN (02:45)
[2017-02-15] MEDS ORDERED: THIAMINE HCL INJ 100 MG in SYRINGE 9 ML IV STA (03:45)
[2017-02-15] MEDS ORDERED: GABAPENTIN 1200MG LOADING DOSE PO ONE (04:00)
[2017-02-15 04:23] VITALS: Ht 180.3 cm; Wt 53.0 kg
[2017-02-15 06:11] LABS: BASO % 0.3 %; BASO ABS # 0.02 K/uL (0-0.2); COMPLETE YES; EOS % 1.1 %; HEMATOCRIT 26.5 % (42-52); IG% 1.1 %; LYMPH % 14.9 %; MEAN CELL VOLUME 93.6 fL (80-100); MEAN CORPUSCULAR HEMOGLOBIN 31.8 pg (25-34); MEAN PLATELET VOLUME 8.4 fL (7.4-10.4); MONO % 16.2 %; NEUT % 66.4 %; PLATELET COUNT 201 K/uL (130-400); RED BLOOD COUNT 2.83 M/uL (4.7-6.1)
--- NOTE | 2017-02-15 06:30 | HISTORY & PHYSICAL EXAMINATION ---
DATE OF ADMISSION: 02/15/2017 PRIMARY CARE PHYSICIAN: None. CHIEF COMPLAINT: unresponsive as per records. HISTORY OF PRESENT ILLNESS: History obtained from patient, records, ER MD. Medical history significant for alcohol dependence, ongoing tobacco abuse, chronic anemia (baseline hemoglobin of 10-11), homelessness. Recent confinement a few days ago for electrolyte abnormalities and alcohol abuse. Seen by Nephrology. Patient refused discharge alcohol rehab. Patient remembers falling asleep [place] yesterday, feeling tired, no chest pain, no shortness of breath, no syncope. As per records, found to be unresponsive, by EMS. Denies headache, chest pain, shortness of breath, abdominal pain, cough symptoms. Initial SBP in the Emergency Room was 70s. Given Levaquin in the ER for possible pneumonia. MEDICAL HISTORY: As above. PAST SURGICAL HISTORY: Childhood hernia surgery. HOME MEDICATIONS: Include none. ALLERGIES: PENICILLIN. FAMILY HISTORY: Some cancer. PERSONAL AND SOCIAL HISTORY: A few cigarettes a day, regular alcohol intake. 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 currently homeless. REVIEW OF SYSTEMS: As per HPI, all other ROS negative. PHYSICAL EXAMINATION: VITAL SIGNS: Blood pressure was noted to be 77/46, later 110/70 pulse rate 80, RR 20, T37, O2 sats 96% on room air. GENERAL: Noted to be restless, tremulous, no respiratory distress, hyposthenic, unkempt. SKIN: Pallor. HEENT: Pale palpebral conjunctivae. Dry mucosa. NECK: No JVD. Supple. CHEST: Decreased effort. Decreased breath sounds. HEART: Regular rate and rhythm. ABDOMEN: Soft. EXTREMITIES: No edema, no tenderness. NEUROLOGIC: No gross focality except for tremors. LABS: Hemoglobin was noted to be initially 9.2 later 10, hematocrit 25.8, white cell count is 8.6, platelets 196. Sodium 137, potassium 4.1, chloride 95, CO2 20 BUN 16, creatinine 0.4, glucose 82, lipase 96. Alcohol level noted to be 164. IMAGING DATA: CT head initial read showed atrophy, remote lacunar infarct, left caudate head, mild chronic small vessel ischemic disease. CT chest, initial read : patchy densities bilateral, consolidation decreased from previous. CT abdomen and pelvis, no pathology, initial read. ER stool hemoccult was negative. ASSESSMENT: 1. Acute on chronic hyponatremia. clinical dehydration, possible beer potomania. 2. Chronic Anemia. Repeat hemoglobin at baseline 3. Old cerebrovascular accident on CAT scan. 4. Alcohol abuse, ongoing tobacco abuse 5. Malnutrition (low BMI) 6. Homelessness PLAN: F Careful correction of sodium. May need Nephrology consultation if problems encountered. anemia workup. Transfuse packed RBC if hemoglobin less than 8. (old CVA on CAT scan) DT precautions. Patient counseled to stop smoking. Follow official CT head results. Aspirin for now for secondary stroke prevention. Nutrition consult RE malnutrition, low BMI. Social service RE discharge planning. DVT prophylaxis, SCDs. RE Anemia, history of thrombocytopenia Full code scan. Full code. MTDD
[2017-02-15 06:39] LABS: SODIUM 133 mmol/L (136-145)
--- NOTE | 2017-02-15 06:45 | DIAGNOSTIC IMAGING REPORT ---
CT OF THE CERVICAL SPINE CLINICAL HISTORY: Neck pain status post trauma COMPARISON STUDY: No previous studies for comparison. CT DOSE: TECHNIQUE: CT scan of the cervical spine was performed from the skull base to the thoracic inlet. Images are reviewed in the axial, sagittal, and coronal planes. IV contrast was not administered for this examination. A dose lowering technique was utilized adhering to the principles of ALARA. FINDINGS: The visualized portions of the lung apices reveal no evidence of pneumothorax. There is mild esophageal wall thickening. The prevertebral soft tissues are normal. No fractures or subluxations are visualized. There are multilevel degenerative changes IMPRESSION: Moderate multilevel degenerative change. No evidence of acute fracture or traumatic subluxation. Electronically signed by: Alejandro Lucas M.D. 02/15/2017 6:44 AM Dictated Date/Time: 02/15/2017 6:42 AM
[2017-02-15 06:47] LABS: TOTAL IRON BINDING CAPACITY 187 mcg/dl (250-450)
[2017-02-15 06:48] LABS: FERRITIN 318.1 ng/ml (8.0-388.0)
--- NOTE | 2017-02-15 06:49 | DIAGNOSTIC IMAGING REPORT ---
CT ABD/PELVIS IV AND ORAL CONT CLINICAL HISTORY: Abdominal pain status post trauma. Uncontrollable bowel movements. COMPARISON STUDY: 17 TECHNIQUE: Following the IV administration of 118 mL of Optiray-320, CT scan of the abdomen and pelvis was performed from the lung bases to the proximal femurs. Images are reviewed in the axial, sagittal, and coronal planes. IV contrast was administered. Approximately 20 cc of contrast infiltrated into the right forearm. A dose lowering technique was utilized adhering to the principles of ALARA. CT DOSE: FINDINGS: Lower chest: There are bibasal airspace opacities likely atelectatic. There is no pneumothorax. There is a small left pleural effusion Liver: There is mild hepatic steatosis. No focal masses are visualized. The portal veins appear patent. Gallbladder: Unremarkable. Spleen: Normal in size and attenuation. Pancreas: Unremarkable. Adrenal glands: Unremarkable. Kidneys: There is symmetric renal cortical enhancement. The kidneys are normal in size without hydronephrosis. Bowel: There is mild fecal retention. There are no transition zones indicate bowel obstruction. The appendix appears normal. There is colonic diverticulosis. There is no evidence of acute diverticulitis. Peritoneum: There is no intraperitoneal free air or abdominal ascites. Vasculature: The abdominal aorta is normal in course and caliber. Adenopathy: None. Pelvic viscera: The bladder, and pelvic viscera are unremarkable. Skeletal structures: No destructive osseous lesions are seen. IMPRESSION: Bibasal airspace opacities likely atelectatic. No evidence of acute intra-abdominal or pelvic injury. Electronically signed by: Alejandro Lucas M.D. 02/15/2017 6:48 AM Dictated Date/Time: 02/15/2017 6:45 AM
--- NOTE | 2017-02-15 07:13 | DIAGNOSTIC IMAGING REPORT ---
HEAD CT NONCONTRAST CT DOSE: 1508.59 mGy.cm HISTORY: fall TECHNIQUE: Multiaxial CT images of the head were performed without the use of intravenous contrast. Automated exposure control was utilized for this study. A dose lowering technique was utilized adhering to the principles of ALARA. Comparison: None. Findings: The paranasal sinuses and mastoid air cells are clear. The calvarium and skull base are intact. There is no mass, hematoma, midline shift, or acute infarct. 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 Greater than expected central volume loss for the patient's age. Mild microvascular ischemic changes. Impression: No acute intracranial abnormality. Greater than expected central volume loss for the patient's age. Electronically signed by: Jigar Cassidy M.D. 02/15/2017 7:12 AM Dictated Date/Time: 02/15/2017 7:09 AM
--- NOTE | 2017-02-15 07:21 | DIAGNOSTIC IMAGING REPORT ---
CHEST ONE VIEW PORTABLE HISTORY: Generalized abdominal pain. COMPARISON: Chest 02/08/2017. FINDINGS: No pneumothorax. No pleural effusions. Old, healed left-sided rib fractures. Patchy densities at the left lower lobe. The heart is normal in size. IMPRESSION: Patchy left lower lobe airspace opacity which has progressed. This could represent a pneumonia. One month chest x-ray follow-up is recommended to ensure resolution. Electronically signed by: Jigar Cassidy M.D. 02/15/2017 7:20 AM Dictated Date/Time: 02/15/2017 7:18 AM
[2017-02-15 07:46] VITALS: BP 112/68; PULSE 76; TEMP 36.8; O2SAT 97
[2017-02-15] MEDS: MULTIVITAMIN TAB PO SCH (08:08)
--- NOTE | 2017-02-15 08:13 | DIAGNOSTIC IMAGING REPORT ---
CHEST CTA for PULMONARY ARTERIES CT DOSE: HISTORY: Fall. Trauma. TECHNIQUE: Multiaxial CT images of the chest were performed following the intravenous administration of contrast to evaluate the pulmonary arteries. Maximal intensity projection images were also obtained. A dose lowering technique was utilized adhering to the principles of ALARA. COMPARISON STUDY: Chest CT 07/29/2016. FINDINGS: Mild superior endplate compression deformity at T6. This is likely old. There is an old, healed manubrial fracture. Multiple old, healed left-sided rib fractures. Mild aneurysmal dilatation of the ascending thoracic aorta. This measures up to 4.8 cm at the aortic root. Trace pericardial effusion and a trace left pleural effusion. No evidence for an aortic dissection. The majority of the segmental and subsegmental pulmonary arteries of the bilateral lower lobes are nondiagnostic due to the motion artifact. The remaining pulmonary arteries show no filling defects to suggest pulmonary embolus. No mediastinal or hilar lymphadenopathy. No pneumothorax. Small amount of mucoid material within the distal trachea. Patchy bilateral lower lobe airspace opacities, left greater the right. There is also a 3.3 x 2.2 cm focal area consolidation within the superior segment of the left lower lobe. There are few small groundglass nodular opacities within the right upper lobe posteriorly. IMPRESSION: 1. No evidence for pulmonary embolus with limitations as described above. 2. Trace pericardial effusion and a trace left pleural effusion. 3. Bilateral lower lobe airspace opacities including a 3.3 x 2.2 cm focal area of consolidation within the left lower lobe. This favors a pneumonia possibly due to aspiration. However, one to [address] follow is recommended to ensure resolution of the focal left lower lobe airspace opacity and to exclude the less likely possibility of an underlying mass. There are also a few small nodular airspace opacities within the right upper lobe posteriorly. 4. Aneurysmal dilatation of the ascending thoracic aorta measuring up to 4.8 cm at the aortic root. Electronically signed by: Jigar Cassidy M.D. 02/15/2017 8:12 AM Dictated Date/Time: 02/15/2017 7:54 AM
[2017-02-15] MEDS: GABAPENTIN 600MG Q6H DOSE PO SCH ×2 (09:42→16:56)
[2017-02-15 12:29] LABS: HEMATOCRIT 26.3 % (42-52)
[2017-02-15 15:26] VITALS: BP 121/79; PULSE 90; TEMP 36.7; O2SAT 97
--- NOTE | 2017-02-15 16:28 | Progress Note ---
Subjective Date of Service: Feb 15, 2017. Subjective Pt evaluation today including: conversation w/ patient, physical exam, lab review, review of studies, review of inpatient medication list Saw/examined the patient in room 420 Was just discharged on 02/14 - patient is homeless and was found unresponsive on a bench - states he does not recall what happened Denies alcohol or drug use States he has a cough, and is weak No other symptoms Problem List Medical Problems: (1) Alcohol dependence Status: Acute (2) Closed left clavicular fracture Status: Acute (3) Elbow fracture, left Status: Acute (4) Fall as cause of accidental injury in residential institution as place of occurrence Status: Acute (5) Generalized weakness Status: Acute (6) Homeless Status: Acute (7) Hypokalemia Status: Acute (8) Hypophosphatemia Status: Acute (9) Malnutrition Status: Acute Review of Systems Constitutional: No fever, No chills Respiratory: + cough, No sputum, No wheezing, No shortness of breath, No dyspnea on exertion, No dyspnea at rest, No hemoptysis Cardiac: No chest pain Abdomen: No pain, No nausea, No vomiting, No diarrhea Medications Current Inpatient Medications Medications (Trade) Dose Ordered Sig/Jaylene Route Start Time Stop Time Status Last Admin Dose Admin Ioversol (Optiray 320) 111 ml UD PRN IV 02/15/17 00:00 02/19/17 00:00 Acetaminophen (Tylenol Tab) 650 mg Q4H PRN PO 02/15/17 02:45 03/17/17 02:44 Ondansetron HCl (Zofran Inj) 4 mg Q6H PRN IV 02/15/17 02:45 03/17/17 02:44 Oxycodone/ Acetaminophen (Percocet 5-325mg Tab) 1 tab Q6H PRN PO 02/15/17 02:45 03/01/17 02:44 Lorazepam (Ativan Inj) PRN Dosing -Active Protocol Q1H PRN IV 02/15/17 02:45 03/17/17 02:44 Aspirin (Ecotrin Tab) 81 mg QAM PO 02/16/17 08:00 03/18/17 08:59 Thiamine HCl (Vitamin B-1 Tab) 100 mg QAM PO 02/16/17 08:00 03/18/17 08:59 Multivitamins (Multivitamin Tab) 1 tab QAM PO 02/15/17 08:00 03/17/17 08:59 02/15/17 08:08 1 TAB Folic Acid (Folvite Tab) 1 mg QAM PO 02/15/17 08:00 03/17/17 08:59 02/15/17 08:08 1 MG Gabapentin (Neurontin Tab) 600 mg Q8H PO 02/16/17 00:00 02/16/17 16:01 Gabapentin (Neurontin Tab) 600 mg Q12H PO 02/17/17 08:00 02/17/17 20:01 Gabapentin (Neurontin Tab) 600 mg Q24H PO 02/18/17 08:00 02/18/17 08:01 Objective Vital Signs Date Time Temp Pulse Resp B/P (MAP) Pulse Ox O2 Delivery O2 Flow Rate FiO2 02/15/17 08:10 Room Air 02/15/17 07:46 36.8 76 20 112/68 (83) 97 02/15/17 04:23 Room Air 02/15/17 03:02 36.7 80 16 116/73 96 02/15/17 02:14 85 118/76 02/15/17 02:04 94 02/15/17 00:31 80 16 118/76 96 Room Air 02/14/17 22:27 74 20 77/46 96 Room Air 02/14/17 22:06 84 02/14/17 21:04 36.7 91 20 112/74 96 Room Air 02/14/17 21:04 96 Room Air Physical Exam General Appearance: no apparent distress, + cachetic, + thin ENT: + pertinent finding (hard of hearing) Respiratory/Chest: chest non-tender, lungs clear, normal breath sounds, no respiratory distress, no accessory muscle use Cardiovascular: regular rate, rhythm, no edema, no murmur Abdomen: normal bowel sounds, non tender, soft Laboratory Results Last 24 Hours Test 02/14/17 21:50 02/14/17 22:25 02/14/17 23:00 02/14/17 23:55 White Blood Count 8.67 K/uL Red Blood Count 2.75 M/uL Hemoglobin 9.2 g/dL Hematocrit 25.8 % Mean Corpuscular Volume 93.8 fL Mean Corpuscular Hemoglobin 33.5 pg Mean Corpuscular Hemoglobin Concent 35.7 g/dl Platelet Count 196 K/uL Mean Platelet Volume 9.2 fL Neutrophils (%) (Auto) 65.4 % Lymphocytes (%) (Auto) 12.6 % Monocytes (%) (Auto) 19.5 % Eosinophils (%) (Auto) 0.7 % Basophils (%) (Auto) 0.8 % Neutrophils # (Auto) 5.67 K/uL Lymphocytes # (Auto) 1.09 K/uL Monocytes # (Auto) 1.69 K/uL Eosinophils # (Auto) 0.06 K/uL Basophils # (Auto) 0.07 K/uL RDW Standard Deviation 46.4 fL RDW Coefficient of Variation 13.6 % Immature Granulocyte % (Auto) 1.0 % Immature Granulocyte # (Auto) 0.09 K/uL Prothrombin Time 10.2 SECONDS Prothromb Time International Ratio 1.0 Activated Partial Thromboplast Time 25.3 SECONDS Partial Thromboplastin Ratio 1.0 D-Dimer 1870 ug/L FEU Sodium Level 127 mmol/L Potassium Level 4.1 mmol/L Chloride Level 95 mmol/L Carbon Dioxide Level 23 mmol/L Anion Gap 9.0 mmol/L Blood Urea Nitrogen 6 mg/dl Creatinine 0.45 mg/dl Est Creatinine Clear Calc Drug Dose 144.0 ml/min Estimated GFR () > 150.0 Estimated GFR (Non- 130.1 BUN/Creatinine Ratio 12.9 Random Glucose 82 mg/dl Osmolality 291 mOsm/kg Calcium Level 7.9 mg/dl Magnesium Level 1.8 mg/dl Total Bilirubin 0.3 mg/dl Direct Bilirubin < 0.1 mg/dl Aspartate Amino Transf (AST/SGOT) 30 U/L Alanine Aminotransferase (ALT/SGPT) 44 U/L Alkaline Phosphatase 70 U/L Troponin I 0.016 ng/ml Total Protein 5.6 gm/dl Albumin 2.3 gm/dl Lipase 986 U/L Ethyl Alcohol mg/dL 164.0 mg/dl Bedside Glucose 98 mg/dl Urine Color YELLOW Urine Appearance CLEAR Urine pH 6.5 Urine Specific [place] 1.009 Urine Protein NEG Urine Glucose (UA) NEG Urine Ketones NEG Urine Occult Blood NEG Urine Nitrite NEG Urine Bilirubin NEG Urine Urobilinogen NEG Urine Leukocyte Esterase NEG Lactic Acid Level 1.1 mmol/L Test 02/15/17 01:05 02/15/17 05:54 8/2/17 12:08 Hemoglobin 10.0 g/dL 9.0 g/dL 9.1 g/dL Hematocrit 29.2 % 26.5 % 26.3 % Sodium Level 133 mmol/L 133 mmol/L 134 mmol/L Potassium Level 3.7 mmol/L Chloride Level 100 mmol/L Carbon Dioxide Level 26 mmol/L Anion Gap 7.0 mmol/L Blood Urea Nitrogen 3 mg/dl Creatinine 0.33 mg/dl Est Creatinine Clear Calc Drug Dose 196.3 ml/min Estimated GFR () > 150.0 Estimated GFR (Non- 147.8 BUN/Creatinine Ratio 10.4 Random Glucose 82 mg/dl Calcium Level 7.9 mg/dl Lipase 677 U/L White Blood Count 7.40 K/uL Red Blood Count 2.83 M/uL Mean Corpuscular Volume 93.6 fL Mean Corpuscular Hemoglobin 31.8 pg Mean Corpuscular Hemoglobin Concent 34.0 g/dl Platelet Count 201 K/uL Mean Platelet Volume 8.4 fL Neutrophils (%) (Auto) 66.4 % Lymphocytes (%) (Auto) 14.9 % Monocytes (%) (Auto) 16.2 % Eosinophils (%) (Auto) 1.1 % Basophils (%) (Auto) 0.3 % Neutrophils # (Auto) 4.92 K/uL Lymphocytes # (Auto) 1.10 K/uL Monocytes # (Auto) 1.20 K/uL Eosinophils # (Auto) 0.08 K/uL Basophils # (Auto) 0.02 K/uL RDW Standard Deviation 46.4 fL RDW Coefficient of Variation 13.6 % Immature Granulocyte % (Auto) 1.1 % Immature Granulocyte # (Auto) 0.08 K/uL Absolute Reticulocyte Count 0.07 10^6/uL Percent Reticulocyte Count 2.4 % Iron Level 51 mcg/dl Total Iron Binding Capacity 187 mcg/dl Transferrin 147 mg/dl Transferrin % Saturation 25 % Ferritin 318.1 ng/ml Vitamin B12 Level 439 pg/mL Folate 16.43 ng/mL Assessment and Plan This is a 51 year old homeless man with a history of alcoholism, tobacco use disorder, HTN presents with generalized weakness Community Acquired Pneumonia CXR - Patchy left lower lobe airspace opacity which has progressed Chest CT - Bilateral lower lobe airspace opacities including a 3.3 x 2.2 cm focal area of consolidation within the left lower lobe. This favors a pneumonia possibly due to aspiration. will give a Z-sara, 500mg today, 250mg x4 days no sputum, no WBC, afebrile monitor for aspiration Alcoholism alcohol protocol; thiamine, folic acid, multivitamin Gabapentin taper should have [facility] rehab on discharge DVT ppx SCDs FULL CODE
[2017-02-15] MEDS ORDERED: AZITHROMYCIN 250 MG TAB PO ONE (17:00)
--- NOTE | 2017-02-15 17:26 | EMERGENCY ROOM VISIT NOTE ---
History Report prepared by Zayibsalima: Gregorio Strickland Under the Supervision of: Dr. Malvin Chirinos D.O. First contact with patient: 21:10 Chief Complaint: ALCOHOL OVERDOSE Stated Complaint: ALCOHOL History of Present Illness The patient is a 51 year old male who presents to the Emergency Room by EMS with complaints of constant alcohol intoxication beginning prior to arrival. Per EMS, the patient was found unconscious in the bathroom of [facility]. The patient admits to drinking alcohol this morning. He denies any recent falls , or trauma. He denies any pain. HPI limited secondary to alcohol intoxication. Source of History: patient, EMS History Limited By: intoxication (alcohol) Onset: Prior to arrival Quality: other (alcohol intoxication) Timing: constant Associated Symptoms: No headache, No neck pain, No chest pain, No abdominal pain, No back pain Review of Systems ROS limited secondary to alcohol intoxication. Past Medical & Surgical Medical Problems: (1) Alcoh Dep Nec/Nos-Unspec (2) Chest pain (3) Fever (4) Fracture Calcaneus-Close (5) Hypertension Nos (6) Hyponatremia (7) Hypoxia (8) Pleural effusion (9) Sprain Of Ankle Nos Family History FHx: cancer Social History Smoking Status: Unknown if Ever Smoked Alcohol Use: heavy Marital Status: single Housing Status: other Occupation Status: unemployed Current/Historical Medications Scheduled Folic Acid (Folic Acid), 1 MG PO DAILY Magnesium Chloride (Slow-Mag Tab), 64 MG PO QAM Nicotine (Nicoderm Cq), 1 PATCH TD QAM Thiamine HCl (Vitamin B-1), 100 MG PO Q24H Allergies Coded Allergies: Penicillins (Verified Adverse Reaction, Mild, TIRED, 02/08/17) Physical Exam Vital Signs Date Time Temp Pulse Resp B/P (MAP) Pulse Ox O2 Delivery O2 Flow Rate FiO2 02/15/17 02:14 85 118/76 02/15/17 02:04 94 02/15/17 00:31 80 16 118/76 96 Room Air 02/14/17 22:27 74 20 77/46 96 Room Air 02/14/17 22:06 84 02/14/17 21:04 36.7 91 20 112/74 96 Room Air 02/14/17 21:04 96 Room Air Physical Exam GENERAL: Listless but responds to verbal commands. Appears intoxicated. EYES: The conjunctivae are clear. The pupils are round and reactive. EARS, NOSE, MOUTH AND THROAT: The nose is without any evidence of any deformity. Mucous membranes are moist tongue is midline NECK: The neck is nontender and supple. RESPIRATORY: Normal respiratory effort is noted there is no evidence of wheezing rhonchi or rales CARDIOVASCULAR: Regular rate and rhythm noted there no murmurs rubs or gallops normal S1 normal S2 GASTROINTESTINAL: The abdomen is soft. Bowel sounds are present in all quadrants. Abdomen is nontender RECTAL: light brown stool. Heme negative. MUSCULOSKELETAL/EXTREMITIES: There is no evidence of gross deformity full range of motion is noted in the hips and shoulders SKIN: There is no obvious evidence of any rash. There are no petechiae, pallor or cyanosis noted. NEUROLOGIC: Follows commands. Appears to be oriented to person, place and situation. Medical Decision & Procedures ER Provider Diagnostic Interpretation: One View Chest X-ray interpreted by me: infiltrate vs nodular density at the left lower lobe. Atelectasis at the right base. CT the abdomen and pelvis was obtained CT ABD/PELVIS IV AND ORAL CONT CLINICAL HISTORY: Abdominal pain status post trauma. Uncontrollable bowel movements. COMPARISON STUDY: 17 TECHNIQUE: Following the IV administration of 118 mL of Optiray-320, CT scan of the abdomen and pelvis was performed from the lung bases to the proximal femurs. Images are reviewed in the axial, sagittal, and coronal planes. IV contrast was administered. Approximately 20 cc of contrast infiltrated into the right forearm. A dose lowering technique was utilized adhering to the principles of ALARA. CT DOSE: FINDINGS: Lower chest: There are bibasal airspace opacities likely atelectatic. There is no pneumothorax. There is a small left pleural effusion Liver: There is mild hepatic steatosis. No focal masses are visualized. The portal veins appear patent. Gallbladder: Unremarkable. Spleen: Normal in size and attenuation. Pancreas: Unremarkable. Adrenal glands: Unremarkable. Kidneys: There is symmetric renal cortical enhancement. The kidneys are normal in size without hydronephrosis. Bowel: There is mild fecal retention. There are no transition zones indicate bowel obstruction. The appendix appears normal. There is colonic diverticulosis. There is no evidence of acute diverticulitis. Peritoneum: There is no intraperitoneal free air or abdominal ascites. Vasculature: The abdominal aorta is normal in course and caliber. Adenopathy: None. Pelvic viscera: The bladder, and pelvic viscera are unremarkable. Skeletal structures: No destructive osseous lesions are seen. IMPRESSION: Bibasal airspace opacities likely atelectatic. No evidence of acute intra-abdominal or pelvic injury. Electronically signed by: Alejandro Lucas M.D. 02/15/2017 6:48 AM Dictated Date/Time: 02/15/2017 6:[address] OF THE CERVICAL SPINE CLINICAL HISTORY: Neck pain status post trauma COMPARISON STUDY: No previous studies for comparison. CT DOSE: TECHNIQUE: CT scan of the cervical spine was performed from the skull base to the thoracic inlet. Images are reviewed in the axial, sagittal, and coronal planes. IV contrast was not administered for this examination. A dose lowering technique was utilized adhering to the principles of ALARA. FINDINGS: The visualized portions of the lung apices reveal no evidence of pneumothorax. There is mild esophageal wall thickening. The prevertebral soft tissues are normal. No fractures or subluxations are visualized. There are multilevel degenerative changes IMPRESSION: Moderate multilevel degenerative change. No evidence of acute fracture or traumatic subluxation. Electronically signed by: Alejandro Lucas M.D. 02/15/2017 6:44 AM CHEST CTA for PULMONARY ARTERIES CT DOSE: HISTORY: Fall. Trauma. TECHNIQUE: Multiaxial CT images of the chest were performed following the intravenous administration of contrast to evaluate the pulmonary arteries. Maximal intensity projection images were also obtained. A dose lowering technique was utilized adhering to the principles of ALARA. COMPARISON STUDY: Chest CT 07/29/2016. FINDINGS: Mild superior endplate compression deformity at T6. This is likely old. There is an old, healed manubrial fracture. Multiple old, healed left-sided rib fractures. Mild aneurysmal dilatation of the ascending thoracic aorta. This measures up to 4.8 cm at the aortic root. Trace pericardial effusion and a trace left pleural effusion. No evidence for an aortic dissection. The majority of the segmental and subsegmental pulmonary arteries of the bilateral lower lobes are nondiagnostic due to the motion artifact. The remaining pulmonary arteries show no filling defects to suggest pulmonary embolus. No mediastinal or hilar lymphadenopathy. No pneumothorax. Small amount of mucoid material within the distal trachea. Patchy bilateral lower lobe airspace opacities, left greater the right. There is also a 3.3 x 2.2 cm focal area consolidation within the superior segment of the left lower lobe. There are few small groundglass nodular opacities within the right upper lobe posteriorly. IMPRESSION: 1. No evidence for pulmonary embolus with limitations as described above. 2. Trace pericardial effusion and a trace left pleural effusion. 3. Bilateral lower lobe airspace opacities including a 3.3 x 2.2 cm focal area of consolidation within the left lower lobe. This favors a pneumonia possibly due to aspiration. However, one to [address] follow is recommended to ensure resolution of the focal left lower lobe airspace opacity and to exclude the less likely possibility of an underlying mass. There are also a few small nodular airspace opacities within the right upper lobe posteriorly. 4. Aneurysmal dilatation of the ascending thoracic aorta measuring up to 4.8 cm at the aortic root. Electronically signed by: Jigar Cassidy M.D. 02/15/2017 8:12 AM Dictated Date/Time: 02/15/2017 7:[address] NON[address]AST CT DOSE: 1508.59 mGy.cm HISTORY: fall TECHNIQUE: Multiaxial CT images of the head were performed without the use of intravenous contrast. Automated exposure control was utilized for this study. A dose lowering technique was utilized adhering to the principles of ALARA. Comparison: None. Findings: The paranasal sinuses and mastoid air cells are clear. The calvarium and skull base are intact. There is no mass, hematoma, midline shift, or acute infarct. 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 Greater than expected central volume loss for the patient's age. Mild microvascular ischemic changes. Impression: No acute intracranial abnormality. Greater than expected central volume loss for the patient's age. Electronically signed by: Jigar Cassidy M.D. 02/15/2017 7:12 AM Dictated Date/Time: 02/15/2017 7:09 AM Laboratory Results 02/15/17 01:05 Test 02/14/17 21:50 02/14/17 22:25 02/14/17 23:00 02/14/17 23:55 Prothrombin Time 10.2 SECONDS (9.0-12.0) Prothromb Time International Ratio 1.0 (0.9-1.1) Activated Partial Thromboplast Time 25.3 SECONDS (21.0-31.0) Partial Thromboplastin Ratio 1.0 D-Dimer 1870 ug/L FEU (0-500) Osmolality 291 mOsm/kg (280-300) Magnesium Level 1.8 mg/dl (1.8-2.4) Total Bilirubin 0.3 mg/dl (0.2-1) Direct Bilirubin < 0.1 mg/dl (0-0.2) Aspartate Amino Transf (AST/SGOT) 30 U/L (15-37) Alanine Aminotransferase (ALT/SGPT) 44 U/L (12-78) Alkaline Phosphatase 70 U/L (45-117) Troponin I 0.016 ng/ml (0-0.045) Total Protein 5.6 gm/dl (6.4-8.2) Albumin 2.3 gm/dl (3.4-5.0) Ethyl Alcohol mg/dL 164.0 mg/dl (0-3) Bedside Glucose 98 mg/dl (70-99) Urine Color YELLOW Urine Appearance CLEAR (CLEAR) Urine pH 6.5 (4.5-7.5) Urine Specific [place] 1.009 (1.000-1.030) Urine Protein NEG (NEG) Urine Glucose (UA) NEG (NEG) Urine Ketones NEG (NEG) Urine Occult Blood NEG (NEG) Urine Nitrite NEG (NEG) Urine Bilirubin NEG (NEG) Urine Urobilinogen NEG (NEG) Urine Leukocyte Esterase NEG (NEG) Lactic Acid Level 1.1 mmol/L (0.4-2.0) Test 02/15/17 01:05 Anion Gap 7.0 mmol/L (3-11) Est Creatinine Clear Calc Drug Dose 196.3 ml/min Estimated GFR () > 150.0 Estimated GFR (Non- 147.8 BUN/Creatinine Ratio 10.4 (10-20) Calcium Level 7.9 mg/dl (8.5-10.1) Lipase 677 U/L (73-393) Laboratory results per my review. Medications Administered Medications (Trade) Dose Ordered Sig/Jaylene Route Start Time Stop Time Status Last Admin Dose Admin Sodium Chloride 1,000 ml @ 999 mls/hr Q1H1M STAT IV 02/14/17 22:35 02/14/17 23:35 DC 02/14/17 23:14 999 MLS/HR Levofloxacin (Levaquin / D5W) 750 mg NOW STAT IV 02/15/17 00:34 02/15/17 00:36 DC 02/15/17 01:44 750 MG ECG Indication: other (hypotension) Rate (beats per minute): 81 Rhythm: normal sinus Findings: T-wave inversion (Anterior), no ectopy Comparison ECG Date: February 10, 2017 Change: Changes are new. ED Course 2125: The patient was evaluated in room B7. A complete history and physical examination were performed. 2234: Ordered NSS 1,000 ml @ 999 mls/hr IV. 33: Ordered Levaquin / D5w 750 mg IV. 0: Upon reevaluation, the patient is resting. I spoke with Dr. Arana of [facility]. The patient will be evaluated for further management and care. Medical Decision Differential diagnosis: Etiologies such as alcohol intoxication, toxicologic, infection, hypoglycemia, electrolyte abnormalities, cardiac sources, intracerebral event, neurologic, as well as others were entertained. Nursing notes reviewed. The patient is a 51-year-old male who presented to the emergency department for suspected alcohol intoxication. The patient has a history of alcoholism and was recently discharged from our facility. He does not have any complaints at this time but because of persistent hypotension other studies were obtained to rule out any acute bleeding or sepsis. The patient was treated with IV fluids in the emergency department. I discussed patient's laboratory and radiographic studies with him. I also discussed his case with the on-call [facility] hospitalist. At the time of dictation the patient's CT of the abdomen and pelvis chest and cervical spine were still pending. I discussed the condition with the on-call [facility] hospitalist and asked him to follow-up the CT reports in case the patient needed any further testing or treatment. The patient was afebrile. The patient's chest x-ray was suggestive of some infiltrative changes. For this reason he was given Levaquin in the emergency department. Consults Time Called: 47 Consulting Physician: Dr. Yasmeen Rizo Returned Call: 51 I discussed the patient's case with Dr. Arana. The patient will be evaluated for further management. Impression Primary Impression: Hypotension Additional Impressions: Anemia Alcohol intoxication Abnormal ECG Pneumonia Scribe Attestation The scribe's documentation has been prepared under my direction and personally reviewed by me in its entirety. I confirm that the note above accurately reflects all work, treatment, procedures, and medical decision making performed by me. Departure Information Dispostion Being Evaluated By Hospitalist Referrals No Doctor, Assigned (PCP) Patient Instructions [facility] Problem Qualifiers Primary Impression: Hypotension Hypotension type: unspecified hypotension type Qualified Codes: I95.9 - Hypotension, unspecified Additional Impressions: Anemia Anemia type: unspecified type Qualified Codes: D64.9 - Anemia, unspecified Alcohol intoxication Complication of substance-induced condition: with unspecified complication Qualified Codes: F10.929 - Alcohol use, unspecified with intoxication, unspecified Pneumonia Pneumonia type: due to unspecified organism Laterality: left Lung location : lower lobe of lung Qualified Codes: J18.1 - Lobar pneumonia, unspecified organism
[2017-02-15] MEDS ORDERED: BOOST PLUS VANILLA PO SCH ×2 (20:00)
[2017-02-15] MEDS: BOOST PLUS VANILLA PO SCH ×2 (21:02)
[2017-02-15] MEDS: GABAPENTIN 600MG Q8H DOSE PO SCH (23:29)
[2017-02-16] VITALS: BP 116/71; PULSE 76; TEMP 36.9; O2SAT 96; O2SAT 98
[2017-02-16 06:23] LABS: BASO % 0.9 %; BASO ABS # 0.07 K/uL (0-0.2); COMPLETE YES; EOS % 1.7 %; HEMATOCRIT 28.2 % (42-52); IG% 1.2 %; LYMPH % 21.6 %; LYMPH ABS # 1.61 K/uL (1.2-3.4); MEAN CELL VOLUME 96.6 fL (80-100); MEAN CORPUSCULAR HEMOGLOBIN 32.9 pg (25-34); MEAN PLATELET VOLUME 8.6 fL (7.4-10.4); MONO % 16.1 %; NEUT % 58.5 %; PLATELET COUNT 287 K/uL (130-400); RED BLOOD COUNT 2.92 M/uL (4.7-6.1); WHITE BLOOD COUNT 7.45 K/uL (4.8-10.8)
[2017-02-16 06:50] LABS: BUN/CREATININE RATIO 19.8 (10-20); CALCIUM 8.4 mg/dl (8.5-10.1); CREATININE 0.46 mg/dl (0.60-1.40)
[2017-02-16 07:34] VITALS: BP 128/83; PULSE 73; TEMP 36.4; O2SAT 95
[2017-02-16] MEDS: GABAPENTIN 600MG Q8H DOSE PO SCH ×2 (08:00→16:07)
[2017-02-16] MEDS: AZITHROMYCIN 250 MG TAB PO SCH (08:00)
[2017-02-16] MEDS: MULTIVITAMIN TAB PO SCH (08:01)
[2017-02-16] MEDS: BOOST PLUS VANILLA PO SCH ×4 (08:01→20:55)
[2017-02-16] MEDS: THIAMINE HCL 100 MG TAB PO SCH (08:01)
[2017-02-16] MEDS: ASPIRIN 81 MG ECTAB PO SCH (08:05)
[2017-02-16] MEDS ORDERED: NICOTINE 21 MG/24 HR TDSY TD ONE (14:00)
[2017-02-16 15:57] VITALS: BP 109/69; PULSE 83; TEMP 37; O2SAT 97
--- NOTE | 2017-02-16 18:46 | Progress Note ---
Internal Med Progress Note Date of Service: Feb 16, 2017. Provider Documentation: SUBJECTIVE: awake and alert , watching TV denies of any discomfort, no cough or SOB OBJECTIVE: Vital Signs-as noted below Exam: General-disheveled , no distress noted Eyes-sclera non icteric ENT-NAD Neck-no JVD Lungs-diminished Heart-regular S1/S2 Abdomen-soft, non tender Extremities-no rash Neuro-no focal deficit Lab data as noted below. ASSESSMENT & PLAN: Community Acquired Pneumonia CXR - Patchy left lower lobe airspace opacity which has progressed Chest CT - Bilateral lower lobe airspace opacities including a 3.3 x 2.2 cm focal area of consolidation within the left lower lobe. This favors a pneumonia possibly due to aspiration. on Zithromax no evidence of sepsis cont to monitor HX OF Alcoholism alcohol protocol; thiamine, folic acid, multivitamin Gabapentin taper no sign of withdrawal so far refused to go to [facility] rehab in last admission DVT ppx SCDs DISPOSITION homeless , living on street failure to thrive with repeated hospital admission will need placement vs assisted PT/OT social service consulted for discharge planning Vital Signs: Date Time Temp Pulse Resp B/P (MAP) Pulse Ox O2 Delivery O2 Flow Rate FiO2 02/16/17 15:57 37.0 83 16 109/69 (82) 97 Room Air 02/16/17 15:04 Room Air 02/16/17 08:00 Room Air 02/16/17 07:34 36.4 73 18 128/83 (98) 95 Room Air 02/16/17 00:00 36.9 76 18 116/71 (86) 98 Room Air 02/16/17 00:00 96 Room Air Lab Results: Results Past 24 Hours Test 02/16/17 05:50 Range/Units White Blood Count 7.45 4.8-10.8 K/uL Red Blood Count 2.92 4.7-6.1 M/uL Hemoglobin 9.6 14.0-18.0 g/dL Hematocrit 28.2 42-52 % Mean Corpuscular Volume 96.6 80-100 fL Mean Corpuscular Hemoglobin 32.9 25-34 pg Mean Corpuscular Hemoglobin Concent 34.0 32-36 g/dl Platelet Count 287 130-400 K/uL Mean Platelet Volume 8.6 7.4-10.4 fL Neutrophils (%) (Auto) 58.5 % Lymphocytes (%) (Auto) 21.6 % Monocytes (%) (Auto) 16.1 % Eosinophils (%) (Auto) 1.7 % Basophils (%) (Auto) 0.9 % Neutrophils # (Auto) 4.35 1.4-6.5 K/uL Lymphocytes # (Auto) 1.61 1.2-3.4 K/uL Monocytes # (Auto) 1.20 0.11-0.59 K/uL Eosinophils # (Auto) 0.13 0-0.5 K/uL Basophils # (Auto) 0.07 0-0.2 K/uL RDW Standard Deviation 48.7 36.4-46.3 fL RDW Coefficient of Variation 13.9 11.5-14.5 % Immature Granulocyte % (Auto) 1.2 % Immature Granulocyte # (Auto) 0.09 0.00-0.02 K/uL Sodium Level 136 136-145 mmol/L Potassium Level 4.0 3.5-5.1 mmol/L Chloride Level 102 98-107 mmol/L Carbon Dioxide Level 28 21-32 mmol/L Anion Gap 6.0 3-11 mmol/L Blood Urea Nitrogen 9 7-18 mg/dl Creatinine 0.46 0.60-1.40 mg/dl Est Creatinine Clear Calc Drug Dose 140.8 ml/min Estimated GFR () 149.4 Estimated GFR (Non- 128.9 BUN/Creatinine Ratio 19.8 10-20 Random Glucose 81 70-99 mg/dl Calcium Level 8.4 8.5-10.1 mg/dl
[2017-02-16 23:47] VITALS: BP 125/70; PULSE 76; TEMP 37.2; O2SAT 97
[2017-02-17] MEDS: THIAMINE HCL 100 MG TAB PO SCH (07:42)
[2017-02-17] MEDS: GABAPENTIN 600MG Q12H DOSE PO SCH ×2 (07:42→20:47)
[2017-02-17] MEDS: ASPIRIN 81 MG ECTAB PO SCH (07:42)
[2017-02-17] MEDS: AZITHROMYCIN 250 MG TAB PO SCH (07:42)
[2017-02-17] MEDS: MULTIVITAMIN TAB PO SCH (07:43)
[2017-02-17] MEDS: NICOTINE 21 MG/24 HR TDSY TD SCH (07:43)
[2017-02-17] MEDS: ACETAMINOPHEN 325 MG TAB PO PRN (07:46)
[2017-02-17] MEDS: BOOST PLUS VANILLA PO SCH ×4 (07:47→20:47)
[2017-02-17 07:55] VITALS: BP 146/85; PULSE 78; TEMP 36.8; O2SAT 96
[2017-02-17 08:11] LABS: COMPLETE YES; EOS % 1.3 %; HEMATOCRIT 26.4 % (42-52); IG% 0.5 %; LYMPH % 15.2 %; LYMPH ABS # 1.58 K/uL (1.2-3.4); MEAN CELL VOLUME 95.7 fL (80-100); MEAN CORPUSCULAR HGB CONC 34.5 g/dl (32-36); MEAN PLATELET VOLUME 8.3 fL (7.4-10.4); MONO % 12.6 %; NEUT % 69.4 %; PLATELET COUNT 331 K/uL (130-400); RED BLOOD COUNT 2.76 M/uL (4.7-6.1)
[2017-02-17 08:28] LABS: BLOOD UREA NITROGEN 8 mg/dl (7-18); BUN/CREATININE RATIO 18.1 (10-20); CALCIUM 8.4 mg/dl (8.5-10.1); CARBON DIOXIDE 31 mmol/L (21-32); CHLORIDE 99 mmol/L (98-107); CREATININE 0.42 mg/dl (0.60-1.40); GLUCOSE 84 mg/dl (70-99); SODIUM 134 mmol/L (136-145)
[2017-02-17 15:58] VITALS: BP 94/70; PULSE 88; TEMP 37.2; O2SAT 96
--- NOTE | 2017-02-17 16:28 | Discharge Instructions ---
Discharge Instructions Date of Service Feb 17, 2017. Admission Reason for Admission: Hyponatremia Discharge Discharge Diagnosis / Problem: PNEUMONIA /HYPONATREMIA /DEHYDRATION Discharge Goals Goal(s): Decrease discomfort, Improve disease control, Therapeutic intervention Activity Recommendations Activity Level: Assistance Required Therapies: Physical Therapy, Occupational Therapy . Additional Information Patient informed of condition: Yes Advance Directives: No DNR: No Level of Care: Skilled Communicable Disease: No Prognosis: Stable Nielsen Catheter: No Instructions / Follow-Up Instructions / Follow-Up CONTINUE REHAB WILL NEED TO ESTABLISH WITH FAMILY PHYSICIAN FOR CONTINUED FOLLOW UP Current Hospital Diet Patient's current hospital diet: Regular Diet Discharge Diet Recommended Diet: Regular Diet Pending Studies Studies pending at discharge: no Medical Emergencies . Who to Call and When: Medical Emergencies: If at any time you feel your situation is an emergency, please call 911 immediately. . Non-Emergent Contact Non-Emergency issues call your: Primary Care Provider . . "Provider Documentation" section prepared by Neisha Norman. . Core Measure Problem Core Measures: None
--- NOTE | 2017-02-17 18:43 | Progress Note ---
Internal Med Progress Note Date of Service: Feb 17, 2017. Provider Documentation: SUBJECTIVE: denies of any cough or SOB no fever or chills comfortable OBJECTIVE: Vital Signs-as noted below Exam: General-disheveled , no distress noted Eyes-sclera non icteric ENT-NAD Neck-no JVD Lungs-diminished Heart-regular S1/S2 Abdomen-soft, non tender Extremities-no rash Neuro-no focal deficit Lab data as noted below. ASSESSMENT & PLAN: Community Acquired Pneumonia CXR - Patchy left lower lobe airspace opacity which has progressed Chest CT - Bilateral lower lobe airspace opacities including a 3.3 x 2.2 cm focal area of consolidation within the left lower lobe. This favors a pneumonia possibly due to aspiration. on Zithromax no evidence of sepsis clinically improved HX OF Alcoholism alcohol protocol; thiamine, folic acid, multivitamin Gabapentin taper no sign of withdrawal so far refused to go to [facility] rehab in last admission DVT ppx SCDs DISPOSITION homeless , living on street failure to thrive with repeated hospital admission will need placement vs correction PT/OT social service consulted for discharge planning referral made for [facility] possible transfer to [facility] on Monday if accepted Vital Signs: Date Time Temp Pulse Resp B/P (MAP) Pulse Ox O2 Delivery O2 Flow Rate FiO2 02/17/17 16:01 Room Air 02/17/17 15:58 37.2 88 18 94/70 (78) 96 Room Air 02/17/17 07:55 36.8 78 18 146/85 (105) 96 Room Air 02/17/17 07:45 Room Air 02/17/17 00:00 Room Air 02/16/17 23:47 37.2 76 20 125/70 (88) 97 Room Air 02/16/17 20:00 Room Air Lab Results: Results Past 24 Hours Test 02/17/17 07:37 Range/Units White Blood Count 10.40 4.8-10.8 K/uL Red Blood Count 2.76 4.7-6.1 M/uL Hemoglobin 9.1 14.0-18.0 g/dL Hematocrit 26.4 42-52 % Mean Corpuscular Volume 95.7 80-100 fL Mean Corpuscular Hemoglobin 33.0 25-34 pg Mean Corpuscular Hemoglobin Concent 34.5 32-36 g/dl Platelet Count 331 130-400 K/uL Mean Platelet Volume 8.3 7.4-10.4 fL Neutrophils (%) (Auto) 69.4 % Lymphocytes (%) (Auto) 15.2 % Monocytes (%) (Auto) 12.6 % Eosinophils (%) (Auto) 1.3 % Basophils (%) (Auto) 1.0 % Neutrophils # (Auto) 7.23 1.4-6.5 K/uL Lymphocytes # (Auto) 1.58 1.2-3.4 K/uL Monocytes # (Auto) 1.31 0.11-0.59 K/uL Eosinophils # (Auto) 0.13 0-0.5 K/uL Basophils # (Auto) 0.10 0-0.2 K/uL RDW Standard Deviation 47.7 36.4-46.3 fL RDW Coefficient of Variation 13.8 11.5-14.5 % Immature Granulocyte % (Auto) 0.5 % Immature Granulocyte # (Auto) 0.05 0.00-0.02 K/uL Sodium Level 134 136-145 mmol/L Potassium Level 4.0 3.5-5.1 mmol/L Chloride Level 99 98-107 mmol/L Carbon Dioxide Level 31 21-32 mmol/L Anion Gap 4.0 3-11 mmol/L Blood Urea Nitrogen 8 7-18 mg/dl Creatinine 0.42 0.60-1.40 mg/dl Est Creatinine Clear Calc Drug Dose 154.2 ml/min Estimated GFR () > 150.0 Estimated GFR (Non- 133.9 BUN/Creatinine Ratio 18.1 10-20 Random Glucose 84 70-99 mg/dl Calcium Level 8.4 8.5-10.1 mg/dl
[2017-02-17 23:56] VITALS: BP 120/71; PULSE 79; TEMP 36.6; O2SAT 96
[2017-02-18 06:56] LABS: BASO % 1.5 %; BASO ABS # 0.12 K/uL (0-0.2); COMPLETE YES; EOS % 1.6 %; IG% 0.6 %; LYMPH % 16.9 %; LYMPH ABS # 1.39 K/uL (1.2-3.4); MEAN CELL VOLUME 95.9 fL (80-100); MEAN CORPUSCULAR HEMOGLOBIN 33.2 pg (25-34); MEAN CORPUSCULAR HGB CONC 34.6 g/dl (32-36); MEAN PLATELET VOLUME 8.4 fL (7.4-10.4); MONO % 13.3 %; NEUT % 66.1 %; PLATELET COUNT 371 K/uL (130-400); RED BLOOD COUNT 2.92 M/uL (4.7-6.1); WHITE BLOOD COUNT 8.21 K/uL (4.8-10.8)
[2017-02-18 07:26] LABS: BLOOD UREA NITROGEN 9 mg/dl (7-18); BUN/CREATININE RATIO 20.2 (10-20); CALCIUM 8.6 mg/dl (8.5-10.1); CARBON DIOXIDE 28 mmol/L (21-32); CHLORIDE 102 mmol/L (98-107); CREATININE 0.45 mg/dl (0.60-1.40); GLUCOSE 84 mg/dl (70-99); POTASSIUM 4.2 mmol/L (3.5-5.1); SODIUM 136 mmol/L (136-145)
[2017-02-18 07:29] VITALS: BP 128/81; PULSE 70; TEMP 36.7; O2SAT 96
[2017-02-18] MEDS ORDERED: GABAPENTIN 600MG X1 DOSE PO SCH (08:00)
[2017-02-18] MEDS: THIAMINE HCL 100 MG TAB PO SCH (08:58)
[2017-02-18] MEDS: AZITHROMYCIN 250 MG TAB PO SCH (08:58)
[2017-02-18] MEDS: ASPIRIN 81 MG ECTAB PO SCH (08:58)
[2017-02-18] MEDS: NICOTINE 21 MG/24 HR TDSY TD SCH (08:59)
[2017-02-18] MEDS: MULTIVITAMIN TAB PO SCH (08:59)
[2017-02-18] MEDS: BOOST PLUS VANILLA PO SCH ×4 (09:00→20:12)
[2017-02-18 15:34] VITALS: BP 111/73; PULSE 90; TEMP 36.7; O2SAT 94
--- NOTE | 2017-02-18 17:16 | Progress Note ---
Internal Med Progress Note Date of Service: Feb 18, 2017. Provider Documentation: SUBJECTIVE: cough has improved feels " scratchy " at back of throat making dry cough no fever or chills still feels weak and tired OBJECTIVE: Vital Signs-as noted below Exam: General-disheveled , no distress noted Eyes-sclera non icteric ENT-NAD Neck-no JVD Lungs-diminished Heart-regular S1/S2 Abdomen-soft, non tender Extremities-no rash Neuro-no focal deficit Lab data as noted below. ASSESSMENT & PLAN: Pneumonia/Possible aspiration -pt was found obtunded CXR - Patchy left lower lobe airspace opacity which has progressed Chest CT - Bilateral lower lobe airspace opacities including a 3.3 x 2.2 cm focal area of consolidation within the left lower lobe. This favors a pneumonia possibly due to aspiration. on Zithromax no evidence of sepsis clinically improved repeat Cxray ordered in AM HX OF Alcoholism alcohol protocol; thiamine, folic acid, multivitamin Gabapentin taper no sign of withdrawal so far refused to go to [facility] rehab in last admission DVT ppx SCDs DISPOSITION homeless , living on street failure to thrive with repeated hospital admission will need placement vs [facility] PT/OT social service consulted for discharge planning referral made for [facility] possible transfer to [facility] on Monday if accepted Vital Signs: Date Time Temp Pulse Resp B/P (MAP) Pulse Ox O2 Delivery O2 Flow Rate FiO2 02/18/17 15:40 Room Air 02/18/17 15:34 36.7 90 20 111/73 (86) 94 Room Air 02/18/17 07:59 Room Air 02/18/17 07:29 36.7 70 18 128/81 (97) 96 Room Air 02/18/17 00:00 Room Air 02/17/17 23:56 36.6 79 20 120/71 (87) 96 Room Air Lab Results: Results Past 24 Hours Test 02/18/17 06:18 Range/Units White Blood Count 8.21 4.8-10.8 K/uL Red Blood Count 2.92 4.7-6.1 M/uL Hemoglobin 9.7 14.0-18.0 g/dL Hematocrit 28.0 42-52 % Mean Corpuscular Volume 95.9 80-100 fL Mean Corpuscular Hemoglobin 33.2 25-34 pg Mean Corpuscular Hemoglobin Concent 34.6 32-36 g/dl Platelet Count 371 130-400 K/uL Mean Platelet Volume 8.4 7.4-10.4 fL Neutrophils (%) (Auto) 66.1 % Lymphocytes (%) (Auto) 16.9 % Monocytes (%) (Auto) 13.3 % Eosinophils (%) (Auto) 1.6 % Basophils (%) (Auto) 1.5 % Neutrophils # (Auto) 5.43 1.4-6.5 K/uL Lymphocytes # (Auto) 1.39 1.2-3.4 K/uL Monocytes # (Auto) 1.09 0.11-0.59 K/uL Eosinophils # (Auto) 0.13 0-0.5 K/uL Basophils # (Auto) 0.12 0-0.2 K/uL RDW Standard Deviation 48.8 36.4-46.3 fL RDW Coefficient of Variation 14.0 11.5-14.5 % Immature Granulocyte % (Auto) 0.6 % Immature Granulocyte # (Auto) 0.05 0.00-0.02 K/uL Sodium Level 136 136-145 mmol/L Potassium Level 4.2 3.5-5.1 mmol/L Chloride Level 102 98-107 mmol/L Carbon Dioxide Level 28 21-32 mmol/L Anion Gap 6.0 3-11 mmol/L Blood Urea Nitrogen 9 7-18 mg/dl Creatinine 0.45 0.60-1.40 mg/dl Est Creatinine Clear Calc Drug Dose 144.0 ml/min Estimated GFR () > 150.0 Estimated GFR (Non- 130.1 BUN/Creatinine Ratio 20.2 10-20 Random Glucose 84 70-99 mg/dl Calcium Level 8.6 8.5-10.1 mg/dl
[2017-02-18] MEDS ORDERED: COUGH DROP (SUGAR FREE) LOZ 24 LOZ/1 BOX PO PRN (17:30)
[2017-02-18 23:28] VITALS: BP 146/77; PULSE 80; TEMP 37; O2SAT 97
[2017-02-19 06:24] LABS: BASO % 1.9 %; BASO ABS # 0.14 K/uL (0-0.2); COMPLETE YES; EOS % 2.5 %; IG% 1.4 %; LYMPH % 24.9 %; LYMPH ABS # 1.79 K/uL (1.2-3.4); MEAN CELL VOLUME 96.4 fL (80-100); MEAN CORPUSCULAR HEMOGLOBIN 32.9 pg (25-34); MEAN CORPUSCULAR HGB CONC 34.1 g/dl (32-36); MEAN PLATELET VOLUME 8.3 fL (7.4-10.4); MONO % 13.1 %; NEUT % 56.2 %; PLATELET COUNT 418 K/uL (130-400); WHITE BLOOD COUNT 7.18 K/uL (4.8-10.8)
[2017-02-19 07:02] LABS: BLOOD UREA NITROGEN 10 mg/dl (7-18); BUN/CREATININE RATIO 29.3 (10-20); CALCIUM 8.4 mg/dl (8.5-10.1); CARBON DIOXIDE 27 mmol/L (21-32); CHLORIDE 99 mmol/L (98-107); CREATININE 0.34 mg/dl (0.60-1.40); GLUCOSE 80 mg/dl (70-99); POTASSIUM 4.2 mmol/L (3.5-5.1); SODIUM 133 mmol/L (136-145)
[2017-02-19] MEDS: ASPIRIN 81 MG ECTAB PO SCH (07:29)
[2017-02-19] MEDS: AZITHROMYCIN 250 MG TAB PO SCH (07:30)
[2017-02-19] MEDS: BOOST PLUS VANILLA PO SCH ×4 (07:30→19:49)
[2017-02-19] MEDS: MULTIVITAMIN TAB PO SCH (07:30)
[2017-02-19] MEDS: ACETAMINOPHEN 325 MG TAB PO PRN (07:30)
[2017-02-19] MEDS: NICOTINE 21 MG/24 HR TDSY TD SCH (07:30)
[2017-02-19] MEDS: THIAMINE HCL 100 MG TAB PO SCH (07:30)
[2017-02-19 08:00] VITALS: BP 129/80; PULSE 74; TEMP 36.7; O2SAT 96
--- NOTE | 2017-02-19 08:56 | DIAGNOSTIC IMAGING REPORT ---
CHEST ONE VIEW PORTABLE HISTORY: pneumonia COMPARISON: Chest 02/14/2017. FINDINGS: The heart is normal in size. No pneumothorax. Old, healed left-sided rib fractures. The right lung is essentially clear. Patchy left basilar densities are again noted. Trace left pleural effusion. IMPRESSION: No change in the left basilar airspace opacity and trace left pleural effusion. Electronically signed by: Jigar Cassidy M.D. 02/19/2017 8:55 AM Dictated Date/Time: 02/19/2017 8:53 AM
--- NOTE | 2017-02-19 16:19 | Progress Note ---
Medicine Progress Note Date & Time of Visit: Feb 19, 2017 at 16:02. Subjective Pt was seen and examined Sitting in bed comfortable watching TV Pt said that he feels fine He said that his gait he still a little unsteady denies any chest pain, palpitation, dizziness and sob Objective Last 8 Hrs Date Time Temp Pulse Resp B/P (MAP) Pulse Ox O2 Delivery O2 Flow Rate FiO2 02/19/17 15:31 Room Air Physical Exam: General- No acute distress Head- atraumatic Eyes- PERRL, EOMI ENT- oropharynx clear, decrease hearing function Neck- supple, no JVD Lungs- No wheezing, no crackles Heart- regular rhythm; no murmur Abdomen- normal bowel sounds, soft Extremities- no calf tenderness Neuro- alert, oriented x 3; PERRL, EOMI Skin- warm & dry Laboratory Results: Last 24 Hours Test 02/19/17 05:54 White Blood Count 7.18 K/uL Red Blood Count 2.80 M/uL Hemoglobin 9.2 g/dL Hematocrit 27.0 % Mean Corpuscular Volume 96.4 fL Mean Corpuscular Hemoglobin 32.9 pg Mean Corpuscular Hemoglobin Concent 34.1 g/dl Platelet Count 418 K/uL Mean Platelet Volume 8.3 fL Neutrophils (%) (Auto) 56.2 % Lymphocytes (%) (Auto) 24.9 % Monocytes (%) (Auto) 13.1 % Eosinophils (%) (Auto) 2.5 % Basophils (%) (Auto) 1.9 % Neutrophils # (Auto) 4.03 K/uL Lymphocytes # (Auto) 1.79 K/uL Monocytes # (Auto) 0.94 K/uL Eosinophils # (Auto) 0.18 K/uL Basophils # (Auto) 0.14 K/uL RDW Standard Deviation 48.1 fL RDW Coefficient of Variation 13.8 % Immature Granulocyte % (Auto) 1.4 % Immature Granulocyte # (Auto) 0.10 K/uL Sodium Level 133 mmol/L Potassium Level 4.2 mmol/L Chloride Level 99 mmol/L Carbon Dioxide Level 27 mmol/L Anion Gap 7.0 mmol/L Blood Urea Nitrogen 10 mg/dl Creatinine 0.34 mg/dl Est Creatinine Clear Calc Drug Dose 190.5 ml/min Estimated GFR () > 150.0 Estimated GFR (Non- 146.0 BUN/Creatinine Ratio 29.3 Random Glucose 80 mg/dl Calcium Level 8.4 mg/dl Assessment & Plan Unresponsive Related to alcohol intoxication Alcohol level on admission was 164 CT head on admission showed no acute abnormality Stable Pneumonia Possible aspiration -pt was found obtunded CXR - Patchy left lower lobe airspace opacity which has progressed Chest CT - Bilateral lower lobe airspace opacities including a 3.3 x 2.2 cm focal area of consolidation within the left lower lobe. This favors a pneumonia possibly due to aspiration. Repeat CXR today showed no change in the left basilar airspace opacity and trace left pleural effusion Afebrile, no leukocytosis on Zithromax day #4 clinically stable HX OF Alcoholism alcohol protocol; thiamine, folic acid, multivitamin Gabapentin taper no sign of withdrawal refused to go to [facility] rehab in last admission Generalized Weakness Continue Physical therapy Waiting for approval for placement DVT ppx SCDs DISPOSITION Homeless, living on street Refuse to go to alcohol rehab Continue PT/OT possible transfer to [facility] on Monday if accepted Current Inpatient Medications: Current Inpatient Medications Medications (Trade) Dose Ordered Sig/Jaylene Route Start Time Stop Time Status Last Admin Dose Admin Acetaminophen (Tylenol Tab) 650 mg Q4H PRN PO 02/15/17 02:45 03/17/17 02:44 02/19/17 07:30 650 MG Ondansetron HCl (Zofran Inj) 4 mg Q6H PRN IV 02/15/17 02:45 03/17/17 02:44 Oxycodone/ Acetaminophen (Percocet 5-325mg Tab) 1 tab Q6H PRN PO 02/15/17 02:45 03/01/17 02:44 Lorazepam (Ativan Inj) PRN Dosing -Active Protocol Q1H PRN IV 02/15/17 02:45 03/17/17 02:44 Aspirin (Ecotrin Tab) 81 mg QAM PO 02/16/17 08:00 03/18/17 08:59 02/19/17 07:29 81 MG Thiamine HCl (Vitamin B-1 Tab) 100 mg QAM PO 02/16/17 08:00 03/18/17 08:59 02/19/17 07:30 100 MG Multivitamins (Multivitamin Tab) 1 tab QAM PO 02/15/17 08:00 03/17/17 08:59 02/19/17 07:30 1 TAB Folic Acid (Folvite Tab) 1 mg QAM PO 02/15/17 08:00 03/17/17 08:59 02/19/17 07:30 1 MG Azithromycin (Zithromax Tab) 250 mg QAM PO 02/16/17 08:00 02/23/17 07:59 02/19/17 07:30 250 MG Enteral Nutritional Formula (Boost Plus Vanilla) 1 can BID PO 02/15/17 20:00 03/17/17 19:59 02/19/17 07:30 1 CAN Nicotine (Nicoderm Cq 21MG Patch) 1 patch QAM TD 02/17/17 08:00 03/19/17 07:59 02/19/17 07:30 1 PATCH Miscellaneous (Remove Nicoderm Patch) 1 ea HS N/A 02/16/17 21:00 03/18/17 20:59 02/18/17 21:37 1 EA Menthol (Nice Espinoza) 1 espinoza Q2R PRN PO 02/18/17 17:30 03/20/17 17:29
[2017-02-19 16:27] VITALS: BP 133/87; PULSE 78; TEMP 36.9; O2SAT 93
[2017-02-19 23:59] VITALS: BP 127/76; PULSE 80; TEMP 36.7; O2SAT 96
[2017-02-20 07:14] VITALS: BP 136/79; PULSE 67; TEMP 37; O2SAT 98
[2017-02-20 07:46] LABS: BLOOD UREA NITROGEN 10 mg/dl (7-18); BUN/CREATININE RATIO 22.3 (10-20); CALCIUM 8.6 mg/dl (8.5-10.1); CARBON DIOXIDE 30 mmol/L (21-32); CHLORIDE 96 mmol/L (98-107); CREATININE 0.43 mg/dl (0.60-1.40); GLUCOSE 85 mg/dl (70-99); POTASSIUM 4.2 mmol/L (3.5-5.1); SODIUM 132 mmol/L (136-145)
[2017-02-20] MEDS: AZITHROMYCIN 250 MG TAB PO SCH (07:51)
[2017-02-20] MEDS: MULTIVITAMIN TAB PO SCH (07:51)
[2017-02-20] MEDS: THIAMINE HCL 100 MG TAB PO SCH (07:51)
[2017-02-20] MEDS: NICOTINE 21 MG/24 HR TDSY TD SCH (07:51)
[2017-02-20] MEDS: ASPIRIN 81 MG ECTAB PO SCH (07:51)
[2017-02-20] MEDS: BOOST PLUS VANILLA PO SCH ×4 (07:51→19:45)
[2017-02-20] MEDS: ACETAMINOPHEN 325 MG TAB PO PRN ×2 (14:45→22:59)
[2017-02-20 15:12] VITALS: BP 115/74; PULSE 92; TEMP 36.3; O2SAT 97
--- NOTE | 2017-02-20 19:20 | Progress Note ---
Medicine Progress Note Date & Time of Visit: Feb 20, 2017 at 19:16. Subjective Pt was seen and examined Sitting in bed comfortable watching TV pt said that feels a little bit better still has unsteady gait Denies any chest pain, palpitation, dizziness and SOB Objective Last 8 Hrs Date Time Temp Pulse Resp B/P (MAP) Pulse Ox O2 Delivery O2 Flow Rate FiO2 02/20/17 15:12 36.3 92 18 115/74 (88) 97 Room Air 02/20/17 15:10 Room Air Physical Exam: General- No acute distress Head- atraumatic Eyes- PERRL, EOMI ENT- oropharynx clear, decrease hearing function Neck- supple, no JVD Lungs- No wheezing, no crackles Heart- regular rhythm; no murmur Abdomen- normal bowel sounds, soft Extremities- no calf tenderness Neuro- alert, oriented x 3; PERRL, EOMI Skin- warm & dry Laboratory Results: Last 24 Hours Test 02/20/17 06:37 Sodium Level 132 mmol/L Potassium Level 4.2 mmol/L Chloride Level 96 mmol/L Carbon Dioxide Level 30 mmol/L Anion Gap 6.0 mmol/L Blood Urea Nitrogen 10 mg/dl Creatinine 0.43 mg/dl Est Creatinine Clear Calc Drug Dose 150.6 ml/min Estimated GFR () > 150.0 Estimated GFR (Non- 132.6 BUN/Creatinine Ratio 22.3 Random Glucose 85 mg/dl Calcium Level 8.6 mg/dl Assessment & Plan Unresponsive Related to alcohol intoxication Alcohol level on admission was 164 CT head on admission showed no acute abnormality Stable Pneumonia Possible aspiration -pt was found obtunded CXR - Patchy left lower lobe airspace opacity which has progressed Chest CT - Bilateral lower lobe airspace opacities including a 3.3 x 2.2 cm focal area of consolidation within the left lower lobe. This favors a pneumonia possibly due to aspiration. Repeat CXR today showed no change in the left basilar airspace opacity and trace left pleural effusion Afebrile, no leukocytosis completed 5 days course of Zithromax clinically stable HX OF Alcoholism alcohol protocol; thiamine, folic acid, multivitamin Gabapentin taper no sign of withdrawal refused to go to [facility] rehab in last admission Generalized Weakness Continue Physical therapy Waiting for approval for placement to rehab DVT ppx SCDs DISPOSITION Homeless, living on street Refuse to go to alcohol rehab Continue PT/OT Will transfer to [facility] tomorrow if accepted Current Inpatient Medications: Current Inpatient Medications Medications (Trade) Dose Ordered Sig/Jaylene Route Start Time Stop Time Status Last Admin Dose Admin Acetaminophen (Tylenol Tab) 650 mg Q4H PRN PO 02/15/17 02:45 03/17/17 02:44 02/20/17 14:45 650 MG Ondansetron HCl (Zofran Inj) 4 mg Q6H PRN IV 02/15/17 02:45 03/17/17 02:44 Oxycodone/ Acetaminophen (Percocet 5-325mg Tab) 1 tab Q6H PRN PO 02/15/17 02:45 03/01/17 02:44 Lorazepam (Ativan Inj) PRN Dosing -Active Protocol Q1H PRN IV 02/15/17 02:45 03/17/17 02:44 Aspirin (Ecotrin Tab) 81 mg QAM PO 02/16/17 08:00 03/18/17 08:59 02/20/17 07:51 81 MG Thiamine HCl (Vitamin B-1 Tab) 100 mg QAM PO 02/16/17 08:00 03/18/17 08:59 02/20/17 07:51 100 MG Multivitamins (Multivitamin Tab) 1 tab QAM PO 02/15/17 08:00 03/17/17 08:59 02/20/17 07:51 1 TAB Folic Acid (Folvite Tab) 1 mg QAM PO 02/15/17 08:00 03/17/17 08:59 02/20/17 07:51 1 MG Azithromycin (Zithromax Tab) 250 mg QAM PO 02/16/17 08:00 02/23/17 07:59 02/20/17 07:51 250 MG Enteral Nutritional Formula (Boost Plus Vanilla) 1 can BID PO 02/15/17 20:00 03/17/17 19:59 02/19/17 19:49 1 CAN Nicotine (Nicoderm Cq 21MG Patch) 1 patch QAM TD 02/17/17 08:00 03/19/17 07:59 02/20/17 07:51 1 PATCH Miscellaneous (Remove Nicoderm Patch) 1 ea HS N/A 02/16/17 21:00 03/18/17 20:59 8/6/17 19:49 1 EA Menthol (Nice Espinoza) 1 espinoza Q2R PRN PO 02/18/17 17:30 03/20/17 17:29
[2017-02-20 23:57] VITALS: BP 150/83; PULSE 78; TEMP 36.7; O2SAT 98
[2017-02-21 07:21] VITALS: BP 127/82; PULSE 71; TEMP 36.8; O2SAT 97
[2017-02-21 07:37] LABS: HEMATOCRIT 29.1 % (42-52); MEAN CELL VOLUME 95.1 fL (80-100); MEAN CORPUSCULAR HGB CONC 34.7 g/dl (32-36); PLATELET COUNT 443 K/uL (130-400); RED BLOOD COUNT 3.06 M/uL (4.7-6.1); WHITE BLOOD COUNT 6.43 K/uL (4.8-10.8)
[2017-02-21 08:00] LABS: BASO ABS # 0.11 K/uL (0-0.2); BASOPHIL % 1.7 % (0-2); COMPLETE YES; EOSINOPHIL % 3.5 %; LYMPH ABS # 1.79 K/uL (1.2-3.4); LYMPHOCYTE % 27.8 %; NEUTROPHILS % 57.4 %
[2017-02-21 08:09] LABS: BLOOD UREA NITROGEN 9 mg/dl (7-18); BUN/CREATININE RATIO 23.8 (10-20); CALCIUM 8.7 mg/dl (8.5-10.1); CARBON DIOXIDE 27 mmol/L (21-32); CHLORIDE 96 mmol/L (98-107); CREATININE 0.37 mg/dl (0.60-1.40); GLUCOSE 85 mg/dl (70-99); POTASSIUM 4.1 mmol/L (3.5-5.1); SODIUM 130 mmol/L (136-145)
[2017-02-21] MEDS: ASPIRIN 81 MG ECTAB PO SCH (08:10)
[2017-02-21] MEDS: THIAMINE HCL 100 MG TAB PO SCH (08:10)
[2017-02-21] MEDS: MULTIVITAMIN TAB PO SCH (08:10)
[2017-02-21] MEDS: AZITHROMYCIN 250 MG TAB PO SCH (08:10)
[2017-02-21] MEDS: NICOTINE 21 MG/24 HR TDSY TD SCH (09:28)
[2017-02-21] MEDS: BOOST PLUS VANILLA PO SCH ×4 (09:28→20:27)
[2017-02-21] MEDS: ONDANSETRON INJ 2 MG/ML 2 ML VIAL IV PRN (13:51)
[2017-02-21] MEDS: ACETAMINOPHEN 325 MG TAB PO PRN (15:39)
[2017-02-21 16:02] VITALS: BP 119/72; PULSE 77; TEMP 36.6; O2SAT 98
--- NOTE | 2017-02-21 17:13 | Progress Note ---
Medicine Progress Note Date & Time of Visit: Feb 21, 2017 at 17:09. Subjective patient seen resting in bed, watching TV comfortable states he had dry heaving this morning better this afternoon no symptoms Objective Last 8 Hrs Date Time Temp Pulse Resp B/P (MAP) Pulse Ox O2 Delivery O2 Flow Rate FiO2 02/21/17 16:02 36.6 77 20 119/72 (88) 98 Room Air Physical Exam: General- oriented x 3, not in distress, speaks in sentences with no effort Eyes- EOMI, anicteric ENT- oropharynx clear Neck- supple, no JVD Lungs- clear breath sounds bilaterally Heart- regular rhythm; no murmur, normal rate Abdomen- normal bowel sounds, soft, nontender Extremities- no pretibial edema, no calf tenderness Neuro- alert, oriented x 3; no gross focal deficits Skin- warm & dry Laboratory Results: Last 24 Hours Test 02/21/17 07:18 White Blood Count 6.43 K/uL Red Blood Count 3.06 M/uL Hemoglobin 10.1 g/dL Hematocrit 29.1 % Mean Corpuscular Volume 95.1 fL Mean Corpuscular Hemoglobin 33.0 pg Mean Corpuscular Hemoglobin Concent 34.7 g/dl Platelet Count 443 K/uL Mean Platelet Volume 8.0 fL RDW Standard Deviation 47.3 fL RDW Coefficient of Variation 13.7 % Neutrophils % (Manual) 57.4 % Lymphocytes % (Manual) 27.8 % Monocytes % (Manual) 9.6 % Eosinophils % (Manual) 3.5 % Basophils % (Manual) 1.7 % Neutrophils # (Manual) 3.69 K/uL Total Absolute Neutrophils 3.69 K/uL Lymphocytes # (Manual) 1.79 K/uL Total Absolute Lymphocytes 1.79 K/uL Monocytes # (Manual) 0.62 K/uL Eosinophils # (Manual) 0.23 K/uL Basophils # (Manual) 0.11 K/uL Sodium Level 130 mmol/L Potassium Level 4.1 mmol/L Chloride Level 96 mmol/L Carbon Dioxide Level 27 mmol/L Anion Gap 7.0 mmol/L Blood Urea Nitrogen 9 mg/dl Creatinine 0.37 mg/dl Est Creatinine Clear Calc Drug Dose 175.1 ml/min Estimated GFR () > 150.0 Estimated GFR (Non- 141.0 BUN/Creatinine Ratio 23.8 Random Glucose 85 mg/dl Calcium Level 8.7 mg/dl Assessment & Plan Unresponsiveness Related to alcohol intoxication Alcohol level on admission was 164 CT head on admission showed no acute abnormality -- resolved Pneumonia Possible aspiration -pt was found obtunded CXR - Patchy left lower lobe airspace opacity which has progressed Chest CT - Bilateral lower lobe airspace opacities including a 3.3 x 2.2 cm focal area of consolidation within the left lower lobe. This favors a pneumonia possibly due to aspiration. Repeat CXR showed no change in the left basilar airspace opacity and trace left pleural effusion -- s/p 5 days Azithromycin -- asymptomatic HX OF Alcoholism Gabapentin taper done alcohol protocol; thiamine, folic acid, multivitamin Generalized Weakness Continue Physical therapy awaiting SNF placement DVT ppx SCDs DISPOSITION Homeless, living on street Refuse to go to alcohol rehab Continue PT/OT Will transfer to [facility] tomorrow if accepted Current Inpatient Medications: Current Inpatient Medications Medications (Trade) Dose Ordered Sig/Jaylene Route Start Time Stop Time Status Last Admin Dose Admin Acetaminophen (Tylenol Tab) 650 mg Q4H PRN PO 02/15/17 02:45 03/17/17 02:44 02/21/17 15:39 650 MG Ondansetron HCl (Zofran Inj) 4 mg Q6H PRN IV 02/15/17 02:45 03/17/17 02:44 02/21/17 13:51 4 MG Oxycodone/ Acetaminophen (Percocet 5-325mg Tab) 1 tab Q6H PRN PO 02/15/17 02:45 03/01/17 02:44 Lorazepam (Ativan Inj) PRN Dosing -Active Protocol Q1H PRN IV 02/15/17 02:45 03/17/17 02:44 Aspirin (Ecotrin Tab) 81 mg QAM PO 02/16/17 08:00 03/18/17 08:59 02/21/17 08:10 81 MG Thiamine HCl (Vitamin B-1 Tab) 100 mg QAM PO 02/16/17 08:00 03/18/17 08:59 02/21/17 08:10 100 MG Multivitamins (Multivitamin Tab) 1 tab QAM PO 02/15/17 08:00 03/17/17 08:59 02/21/17 08:10 1 TAB Folic Acid (Folvite Tab) 1 mg QAM PO 02/15/17 08:00 03/17/17 08:59 02/21/17 08:10 1 MG Azithromycin (Zithromax Tab) 250 mg QAM PO 02/16/17 08:00 02/23/17 07:59 02/21/17 08:10 250 MG Enteral Nutritional Formula (Boost Plus Vanilla) 1 can BID PO 02/15/17 20:00 03/17/17 19:59 02/21/17 09:28 1 CAN Nicotine (Nicoderm Cq 21MG Patch) 1 patch QAM TD 02/17/17 08:00 03/19/17 07:59 02/21/17 09:28 1 PATCH Miscellaneous (Remove Nicoderm Patch) 1 ea HS N/A 02/16/17 21:00 03/18/17 20:59 02/20/17 21:12 1 EA Menthol (Nice Espinoza) 1 espinoza Q2R PRN PO 02/18/17 17:30 03/20/17 17:29
[2017-02-22 00:12] VITALS: BP 127/68; PULSE 78; TEMP 36.5; O2SAT 97
[2017-02-22 07:14] VITALS: BP 126/80; PULSE 71; TEMP 37; O2SAT 96
[2017-02-22] MEDS: MULTIVITAMIN TAB PO SCH (08:32)
[2017-02-22] MEDS: THIAMINE HCL 100 MG TAB PO SCH (08:32)
[2017-02-22] MEDS: ASPIRIN 81 MG ECTAB PO SCH (08:32)
[2017-02-22] MEDS: NICOTINE 21 MG/24 HR TDSY TD SCH (08:33)
[2017-02-22 08:48] LABS: BASO % 1.5 %; BASO ABS # 0.11 K/uL (0-0.2); COMPLETE YES; EOS % 4.7 %; HEMATOCRIT 28.5 % (42-52); IG% 1.8 %; LYMPH % 25.2 %; LYMPH ABS # 1.86 K/uL (1.2-3.4); MEAN CELL VOLUME 95.3 fL (80-100); MEAN CORPUSCULAR HEMOGLOBIN 32.8 pg (25-34); MEAN CORPUSCULAR HGB CONC 34.4 g/dl (32-36); MEAN PLATELET VOLUME 7.9 fL (7.4-10.4); MONO % 12.3 %; NEUT % 54.5 %; PLATELET COUNT 464 K/uL (130-400); RED BLOOD COUNT 2.99 M/uL (4.7-6.1); WHITE BLOOD COUNT 7.39 K/uL (4.8-10.8)
[2017-02-22 09:26] LABS: BLOOD UREA NITROGEN 9 mg/dl (7-18); BUN/CREATININE RATIO 23.3 (10-20); CALCIUM 8.8 mg/dl (8.5-10.1); CARBON DIOXIDE 28 mmol/L (21-32); CHLORIDE 96 mmol/L (98-107); GLUCOSE 83 mg/dl (70-99); POTASSIUM 4.2 mmol/L (3.5-5.1); SODIUM 131 mmol/L (136-145)
[2017-02-22] MEDS: BOOST PLUS VANILLA PO SCH ×4 (14:43→20:00)
--- NOTE | 2017-02-22 15:23 | Progress Note ---
Medicine Progress Note Date & Time of Visit: Feb 22, 2017 at 15:21. Subjective seen watching tv, comfortable states he feels fine overall denies symptoms Objective Last 8 Hrs Date Time Temp Pulse Resp B/P (MAP) Pulse Ox O2 Delivery O2 Flow Rate FiO2 02/22/17 10:45 Room Air Physical Exam: General- oriented x 3, not in distress, speaks in sentences with no effort Eyes- anicteric Neck- no JVD Lungs- clear breath sounds bilaterally, no rales/wheezes Heart- regular rhythm; no murmur, normal rate Abdomen- normal bowel sounds, soft, nontender Extremities- no pretibial edema, no calf tenderness Neuro- alert, oriented x 3; no gross focal deficits Skin- warm & dry Laboratory Results: Last 24 Hours Test 02/22/17 08:23 White Blood Count 7.39 K/uL Red Blood Count 2.99 M/uL Hemoglobin 9.8 g/dL Hematocrit 28.5 % Mean Corpuscular Volume 95.3 fL Mean Corpuscular Hemoglobin 32.8 pg Mean Corpuscular Hemoglobin Concent 34.4 g/dl Platelet Count 464 K/uL Mean Platelet Volume 7.9 fL Neutrophils (%) (Auto) 54.5 % Lymphocytes (%) (Auto) 25.2 % Monocytes (%) (Auto) 12.3 % Eosinophils (%) (Auto) 4.7 % Basophils (%) (Auto) 1.5 % Neutrophils # (Auto) 4.03 K/uL Lymphocytes # (Auto) 1.86 K/uL Monocytes # (Auto) 0.91 K/uL Eosinophils # (Auto) 0.35 K/uL Basophils # (Auto) 0.11 K/uL RDW Standard Deviation 47.3 fL RDW Coefficient of Variation 13.7 % Immature Granulocyte % (Auto) 1.8 % Immature Granulocyte # (Auto) 0.13 K/uL Sodium Level 131 mmol/L Potassium Level 4.2 mmol/L Chloride Level 96 mmol/L Carbon Dioxide Level 28 mmol/L Anion Gap 7.0 mmol/L Blood Urea Nitrogen 9 mg/dl Creatinine 0.40 mg/dl Est Creatinine Clear Calc Drug Dose 161.9 ml/min Estimated GFR () > 150.0 Estimated GFR (Non- 136.6 BUN/Creatinine Ratio 23.3 Random Glucose 83 mg/dl Calcium Level 8.8 mg/dl Assessment & Plan Unresponsiveness Related to alcohol intoxication Alcohol level on admission was 164 CT head on admission showed no acute abnormality -- resolved Pneumonia Possible aspiration -pt was found obtunded CXR - Patchy left lower lobe airspace opacity which has progressed Chest CT - Bilateral lower lobe airspace opacities including a 3.3 x 2.2 cm focal area of consolidation within the left lower lobe. This favors a pneumonia possibly due to aspiration. Repeat CXR showed no change in the left basilar airspace opacity and trace left pleural effusion -- s/p 5 days Azithromycin -- asymptomatic HX OF Alcoholism Gabapentin taper done alcohol protocol; thiamine, folic acid, multivitamin Generalized Weakness Continue Physical therapy awaiting SNF placement DVT ppx SCDs DISPOSITION Homeless, living on street Refuse to go to alcohol rehab Continue PT/OT Will transfer to [facility] tomorrow if accepted Current Inpatient Medications: Current Inpatient Medications Medications (Trade) Dose Ordered Sig/Jaylene Route Start Time Stop Time Status Last Admin Dose Admin Acetaminophen (Tylenol Tab) 650 mg Q4H PRN PO 02/15/17 02:45 03/17/17 02:44 02/21/17 15:39 650 MG Ondansetron HCl (Zofran Inj) 4 mg Q6H PRN IV 02/15/17 02:45 03/17/17 02:44 02/21/17 13:51 4 MG Oxycodone/ Acetaminophen (Percocet 5-325mg Tab) 1 tab Q6H PRN PO 02/15/17 02:45 03/01/17 02:44 Lorazepam (Ativan Inj) PRN Dosing -Active Protocol Q1H PRN IV 02/15/17 02:45 03/17/17 02:44 Aspirin (Ecotrin Tab) 81 mg QAM PO 02/16/17 08:00 03/18/17 08:59 02/22/17 08:32 81 MG Thiamine HCl (Vitamin B-1 Tab) 100 mg QAM PO 02/16/17 08:00 03/18/17 08:59 02/22/17 08:32 100 MG Multivitamins (Multivitamin Tab) 1 tab QAM PO 02/15/17 08:00 03/17/17 08:59 02/22/17 08:32 1 TAB Folic Acid (Folvite Tab) 1 mg QAM PO 02/15/17 08:00 03/17/17 08:59 02/22/17 08:32 1 MG Enteral Nutritional Formula (Boost Plus Vanilla) 1 can BID PO 02/15/17 20:00 03/17/17 19:59 02/21/17 20:27 1 CAN Nicotine (Nicoderm Cq 21MG Patch) 1 patch QAM TD 02/17/17 08:00 03/19/17 07:59 02/22/17 08:33 1 PATCH Miscellaneous (Remove Nicoderm Patch) 1 ea HS N/A 02/16/17 21:00 03/18/17 20:59 02/21/17 20:28 1 EA Menthol (Nice Espinoza) 1 espinoza Q2R PRN PO 02/18/17 17:30 03/20/17 17:29
[2017-02-22 15:33] VITALS: BP 123/76; PULSE 85; O2SAT 99
[2017-02-22 15:41] VITALS: BP 118/68; PULSE 80; TEMP 36.7; O2SAT 99
[2017-02-22 23:50] VITALS: BP 115/63; PULSE 70; TEMP 36.6; O2SAT 98
[2017-02-23 07:31] VITALS: BP 135/78; PULSE 71; TEMP 37; O2SAT 95
[2017-02-23] MEDS: THIAMINE HCL 100 MG TAB PO SCH (08:14)
[2017-02-23] MEDS: ASPIRIN 81 MG ECTAB PO SCH (08:14)
[2017-02-23] MEDS: NICOTINE 21 MG/24 HR TDSY TD SCH (08:14)
[2017-02-23] MEDS: MULTIVITAMIN TAB PO SCH (08:14)
[2017-02-23] MEDS: BOOST PLUS VANILLA PO SCH ×4 (11:00→20:04)
[2017-02-23] MEDS: ONDANSETRON INJ 2 MG/ML 2 ML VIAL IV PRN (11:16)
[2017-02-23] MEDS: ACETAMINOPHEN 325 MG TAB PO PRN ×3 (11:58→20:07)
[2017-02-23 15:20] VITALS: BP 98/66; PULSE 82; TEMP 36.8; O2SAT 98
[2017-02-23 15:33] VITALS: PULSE 101; O2SAT 98
--- NOTE | 2017-02-23 21:14 | Progress Note ---
Medicine Progress Note Date & Time of Visit: Feb 23, 2017 at 21:13. Subjective delayed entry date of service as noted above seen watching tv, comfortable was having some epigastric discomfort and nausea in AM, resolved denies other symptoms Objective Last 8 Hrs Date Time Temp Pulse Resp B/P (MAP) Pulse Ox O2 Delivery O2 Flow Rate FiO2 02/23/17 16:00 Room Air 02/23/17 15:33 101 98 02/23/17 15:20 36.8 82 18 98/66 (77) 98 Room Air Physical Exam: General- oriented x 3, not in distress, speaks in sentences with no effort Eyes- anicteric Neck- no JVD Lungs- no rales/wheezes bilaterally Heart- regular rhythm; no murmur, normal rate Abdomen- normal bowel sounds, soft, nontender, non distended Extremities- no pretibial edema, no calf tenderness Neuro- alert, oriented x 3; no gross focal deficits Skin- warm & dry Assessment & Plan Unresponsiveness Related to alcohol intoxication Alcohol level on admission was 164 CT head on admission showed no acute abnormality -- resolved no recurrence Pneumonia Possible aspiration -pt was found obtunded CXR - Patchy left lower lobe airspace opacity which has progressed Chest CT - Bilateral lower lobe airspace opacities including a 3.3 x 2.2 cm focal area of consolidation within the left lower lobe. This favors a pneumonia possibly due to aspiration. Repeat CXR showed no change in the left basilar airspace opacity and trace left pleural effusion -- s/p 5 days Azithromycin -- asymptomatic HX OF Alcoholism Gabapentin taper done alcohol protocol; thiamine, folic acid, multivitamin Generalized Weakness Continue Physical therapy awaiting SNF placement DVT ppx SCDs DISPOSITION Homeless, living on street Refuse to go to alcohol rehab Continue PT/OT case management working on placement Current Inpatient Medications: Current Inpatient Medications Medications (Trade) Dose Ordered Sig/Jaylene Route Start Time Stop Time Status Last Admin Dose Admin Acetaminophen (Tylenol Tab) 650 mg Q4H PRN PO 02/15/17 02:45 03/17/17 02:44 02/23/17 20:07 650 MG Ondansetron HCl (Zofran Inj) 4 mg Q6H PRN IV 02/15/17 02:45 03/17/17 02:44 02/23/17 11:16 4 MG Lorazepam (Ativan Inj) PRN Dosing -Active Protocol Q1H PRN IV 02/15/17 02:45 03/17/17 02:44 Aspirin (Ecotrin Tab) 81 mg QAM PO 02/16/17 08:00 03/18/17 08:59 02/23/17 08:14 81 MG Thiamine HCl (Vitamin B-1 Tab) 100 mg QAM PO 02/16/17 08:00 03/18/17 08:59 02/23/17 08:14 100 MG Multivitamins (Multivitamin Tab) 1 tab QAM PO 02/15/17 08:00 03/17/17 08:59 02/23/17 08:14 1 TAB Folic Acid (Folvite Tab) 1 mg QAM PO 02/15/17 08:00 03/17/17 08:59 02/23/17 08:14 1 MG Enteral Nutritional Formula (Boost Plus Vanilla) 1 can BID PO 02/15/17 20:00 03/17/17 19:59 02/23/17 20:04 1 CAN Nicotine (Nicoderm Cq 21MG Patch) 1 patch QAM TD 02/17/17 08:00 03/19/17 07:59 02/23/17 08:14 1 PATCH Miscellaneous (Remove Nicoderm Patch) 1 ea HS N/A 02/16/17 21:00 03/18/17 20:59 02/23/17 20:08 1 EA Menthol (Nice Espinoza) 1 espinoza Q2R PRN PO 02/18/17 17:30 03/20/17 17:29
[2017-02-23 23:02] VITALS: BP 122/70; PULSE 75; TEMP 37.1; O2SAT 96
[2017-02-24] VITALS: O2SAT 98
[2017-02-24 07:20] VITALS: BP 142/78; PULSE 72; TEMP 36.8; O2SAT 97
[2017-02-24] MEDS: ASPIRIN 81 MG ECTAB PO SCH (07:41)
[2017-02-24] MEDS: MULTIVITAMIN TAB PO SCH (07:41)
[2017-02-24] MEDS: NICOTINE 21 MG/24 HR TDSY TD SCH (07:41)
[2017-02-24] MEDS: THIAMINE HCL 100 MG TAB PO SCH (07:41)
[2017-02-24] MEDS: ACETAMINOPHEN 325 MG TAB PO PRN ×2 (07:45→15:07)
[2017-02-24 08:57] LABS: BUN/CREATININE RATIO 20.9 (10-20); CALCIUM 8.9 mg/dl (8.5-10.1); CREATININE 0.46 mg/dl (0.60-1.40); POTASSIUM 4.4 mmol/L (3.5-5.1)
[2017-02-24] MEDS: BOOST PLUS VANILLA PO SCH ×4 (10:33→21:00)
--- NOTE | 2017-02-24 11:35 | Progress Note ---
Medicine Progress Note Date & Time of Visit: Feb 24, 2017 at 11:34. Subjective delayed entry date of service as noted above seen watching tv, comfortable no abdominal pain ,nausea no other symptoms Objective Last 8 Hrs Date Time Temp Pulse Resp B/P (MAP) Pulse Ox O2 Delivery O2 Flow Rate FiO2 02/24/17 10:31 Room Air 02/24/17 07:20 36.8 72 16 142/78 (99) 97 Room Air Physical Exam: General- oriented x 3, not in distress, speaks in sentences with no effort Lungs- clear breath sounds no rales/wheezes bilaterally Heart- regular rhythm; no murmur, normal rate Abdomen- normal bowel sounds, soft, nontender Extremities- no pretibial edema, no calf tenderness Neuro- alert, oriented x 3; no gross focal deficits Skin- warm & dry Laboratory Results: Last 24 Hours Test 02/24/17 08:05 Sodium Level 128 mmol/L Potassium Level 4.4 mmol/L Chloride Level 92 mmol/L Carbon Dioxide Level 30 mmol/L Anion Gap 6.0 mmol/L Blood Urea Nitrogen 10 mg/dl Creatinine 0.46 mg/dl Est Creatinine Clear Calc Drug Dose 140.8 ml/min Estimated GFR () 149.4 Estimated GFR (Non- 128.9 BUN/Creatinine Ratio 20.9 Random Glucose 85 mg/dl Calcium Level 8.9 mg/dl Assessment & Plan Hyponatremia - IV NSS ordered - monitor Na Unresponsiveness Related to alcohol intoxication Alcohol level on admission was 164 CT head on admission showed no acute abnormality -- resolved Pneumonia Possible aspiration -pt was found obtunded CXR - Patchy left lower lobe airspace opacity which has progressed Chest CT - Bilateral lower lobe airspace opacities including a 3.3 x 2.2 cm focal area of consolidation within the left lower lobe. This favors a pneumonia possibly due to aspiration. Repeat CXR showed no change in the left basilar airspace opacity and trace left pleural effusion -- s/p 5 days Azithromycin -- remains asymptomatic HX OF Alcoholism Gabapentin taper done alcohol protocol; thiamine, folic acid, multivitamin Generalized Weakness Continue Physical therapy awaiting SNF placement DVT ppx SCDs DISPOSITION awaiting placement Current Inpatient Medications: Current Inpatient Medications Medications (Trade) Dose Ordered Sig/Jaylene Route Start Time Stop Time Status Last Admin Dose Admin Acetaminophen (Tylenol Tab) 650 mg Q4H PRN PO 02/15/17 02:45 03/17/17 02:44 02/24/17 07:45 650 MG Ondansetron HCl (Zofran Inj) 4 mg Q6H PRN IV 02/15/17 02:45 03/17/17 02:44 02/23/17 11:16 4 MG Lorazepam (Ativan Inj) PRN Dosing -Active Protocol Q1H PRN IV 02/15/17 02:45 03/17/17 02:44 Aspirin (Ecotrin Tab) 81 mg QAM PO 02/16/17 08:00 03/18/17 08:59 02/24/17 07:41 81 MG Thiamine HCl (Vitamin B-1 Tab) 100 mg QAM PO 02/16/17 08:00 03/18/17 08:59 02/24/17 07:41 100 MG Multivitamins (Multivitamin Tab) 1 tab QAM PO 02/15/17 08:00 03/17/17 08:59 02/24/17 07:41 1 TAB Folic Acid (Folvite Tab) 1 mg QAM PO 02/15/17 08:00 03/17/17 08:59 02/24/17 07:41 1 MG Enteral Nutritional Formula (Boost Plus Vanilla) 1 can BID PO 02/15/17 20:00 03/17/17 19:59 02/24/17 10:33 1 CAN Nicotine (Nicoderm Cq 21MG Patch) 1 patch QAM TD 02/17/17 08:00 03/19/17 07:59 02/24/17 07:41 1 PATCH Miscellaneous (Remove Nicoderm Patch) 1 ea HS N/A 02/16/17 21:00 03/18/17 20:59 02/23/17 20:08 1 EA Menthol (Nice Espinoza) 1 espinoza Q2R PRN PO 02/18/17 17:30 03/20/17 17:29
[2017-02-24] MEDS: SODIUM CHLORIDE 0.9% 1000ML 1,000 ML IV SCH ×2 (12:01→21:06)
[2017-02-24 15:41] LABS: BLOOD UREA NITROGEN 12 mg/dl (7-18); BUN/CREATININE RATIO 28.1 (10-20); CALCIUM 7.9 mg/dl (8.5-10.1); CARBON DIOXIDE 26 mmol/L (21-32); CHLORIDE 95 mmol/L (98-107); CREATININE 0.44 mg/dl (0.60-1.40); GLUCOSE 92 mg/dl (70-99); POTASSIUM 4.1 mmol/L (3.5-5.1); SODIUM 127 mmol/L (136-145)
[2017-02-24 16:21] VITALS: BP 145/88; PULSE 81; TEMP 36.6; O2SAT 98
[2017-02-24 19:48] LABS: BUN/CREATININE RATIO 15.7 (10-20); CALCIUM 8.3 mg/dl (8.5-10.1); CREATININE 0.71 mg/dl (0.60-1.40); POTASSIUM 4.6 mmol/L (3.5-5.1)
[2017-02-25 00:39] VITALS: BP 124/76; PULSE 76; TEMP 36.8; O2SAT 97
[2017-02-25] MEDS: ACETAMINOPHEN 325 MG TAB PO PRN ×3 (04:30→18:20)
[2017-02-25 07:46] VITALS: O2SAT 97
[2017-02-25] MEDS: MULTIVITAMIN TAB PO SCH (08:00)
[2017-02-25] MEDS: ASPIRIN 81 MG ECTAB PO SCH (08:00)
[2017-02-25] MEDS: THIAMINE HCL 100 MG TAB PO SCH (08:01)
[2017-02-25] MEDS: NICOTINE 21 MG/24 HR TDSY TD SCH (08:03)
[2017-02-25 08:23] LABS: BLOOD UREA NITROGEN 8 mg/dl (7-18); BUN/CREATININE RATIO 25.9 (10-20); CALCIUM 8.7 mg/dl (8.5-10.1); CARBON DIOXIDE 26 mmol/L (21-32); CHLORIDE 99 mmol/L (98-107); CREATININE 0.32 mg/dl (0.60-1.40); GLUCOSE 90 mg/dl (70-99); POTASSIUM 4.4 mmol/L (3.5-5.1); SODIUM 132 mmol/L (136-145)
[2017-02-25] MEDS: BOOST PLUS VANILLA PO SCH ×4 (10:00→20:49)
[2017-02-25] MEDS: ONDANSETRON INJ 2 MG/ML 2 ML VIAL IV PRN (11:09)
[2017-02-25] MEDS ORDERED: DOCUSATE SODIUM/SENNA 50/8.6MG TAB PO PRN (11:30)
[2017-02-25] MEDS ORDERED: ALUMINUM/MAGNESIUM SUSP 30 ML UDC PO PRN (11:30)
[2017-02-25] MEDS ORDERED: POLYETHYLENE (MIRALAX) 17 GM PACK PO PRN (11:30)
[2017-02-25] MEDS ORDERED: DOCUSATE SODIUM/SENNA 50/8.6MG TAB PO ONE (12:00)
[2017-02-25] MEDS ORDERED: PANTOprazole INJ 40 MG in SYRINGE 0 ML IV ONE (12:00)
[2017-02-25 15:54] VITALS: BP 146/79; PULSE 82; TEMP 36.5; O2SAT 95
[2017-02-25] MEDS: IBUPROFEN 200 MG TAB PO PRN (16:26)
--- NOTE | 2017-02-25 17:10 | Progress Note ---
Medicine Progress Note Date & Time of Visit: Feb 25, 2017 at 17:06. Subjective seen having dinner comfortable has been having headache, frontal, since this morning denies neuro symptoms epigastric discomfort resolved no other symptoms Objective Last 8 Hrs Date Time Temp Pulse Resp B/P (MAP) Pulse Ox O2 Delivery O2 Flow Rate FiO2 02/25/17 15:54 36.5 82 18 146/79 (101) 95 Room Air 02/25/17 15:51 Room Air Physical Exam: General- oriented x 3, not in distress, speaks in sentences with no effort head- no tenderness on the frontal aspect Eyes- anicteric Neck- no JVD Lungs- clear BS b/l Heart- regular rhythm; no murmur, normal rate Abdomen- normal bowel sounds, soft, nontender Extremities- no pretibial edema, no calf tenderness Neuro- alert, oriented x 3; no gross focal deficits Skin- warm & dry Laboratory Results: Last 24 Hours Test 02/24/17 19:15 02/25/17 07:33 02/25/17 07:45 Sodium Level 126 mmol/L 132 mmol/L Potassium Level 4.6 mmol/L 4.4 mmol/L Chloride Level 93 mmol/L 99 mmol/L Carbon Dioxide Level 27 mmol/L 26 mmol/L Anion Gap 6.0 mmol/L 7.0 mmol/L Blood Urea Nitrogen 11 mg/dl 8 mg/dl Creatinine 0.71 mg/dl 0.32 mg/dl Est Creatinine Clear Calc Drug Dose 91.2 ml/min 202.4 ml/min Estimated GFR () 125.0 > 150.0 Estimated GFR (Non- 107.9 149.7 BUN/Creatinine Ratio 15.7 25.9 Random Glucose 87 mg/dl 90 mg/dl Calcium Level 8.3 mg/dl 8.7 mg/dl Urine Random Sodium 97 mEq/L Assessment & Plan Persistent had a history of fall check CT head Epigastric Pain 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 This favors a pneumonia possibly due to aspiration. Repeat CXR showed no change in the left basilar airspace opacity and trace left pleural effusion -- s/p 5 days Azithromycin -- asymptomatic HX OF Alcoholism Gabapentin taper done alcohol protocol; thiamine, folic acid, multivitamin Generalized Weakness Continue Physical therapy awaiting SNF placement DVT ppx SCDs DISPOSITION Homeless, living on street Refuse to go to alcohol rehab Continue PT/OT Will transfer to [facility] tomorrow if accepted Current Inpatient Medications: Current Inpatient Medications Medications (Trade) Dose Ordered Sig/Jaylene Route Start Time Stop Time Status Last Admin Dose Admin Acetaminophen (Tylenol Tab) 650 mg Q4H PRN PO 02/15/17 02:45 03/17/17 02:44 02/25/17 13:34 650 MG Ondansetron HCl (Zofran Inj) 4 mg Q6H PRN IV 02/15/17 02:45 03/17/17 02:44 02/25/17 11:09 4 MG Lorazepam (Ativan Inj) PRN Dosing -Active Protocol Q1H PRN IV 02/15/17 02:45 03/17/17 02:44 Aspirin (Ecotrin Tab) 81 mg QAM PO 02/16/17 08:00 03/18/17 08:59 02/25/17 08:00 81 MG Thiamine HCl (Vitamin B-1 Tab) 100 mg QAM PO 02/16/17 08:00 03/18/17 08:59 02/25/17 08:01 100 MG Multivitamins (Multivitamin Tab) 1 tab QAM PO 02/15/17 08:00 03/17/17 08:59 02/25/17 08:00 1 TAB Folic Acid (Folvite Tab) 1 mg QAM PO 02/15/17 08:00 03/17/17 08:59 02/25/17 08:00 1 MG Enteral Nutritional Formula (Boost Plus Vanilla) 1 can BID PO 02/15/17 20:00 03/17/17 19:59 02/25/17 10:00 1 CAN Menthol (Nice Espinoza) 1 espinoza Q2R PRN PO 02/18/17 17:30 03/20/17 17:29 Al Hydroxide/Mg Hydroxide (Maalox Susp) 30 ml Q6H PRN PO 02/25/17 11:30 03/27/17 11:29 Senna/Docusate Sodium (Senokot S Tab) 1 tab DAILY PRN PO 02/25/17 11:30 03/27/17 11:29 Polyethylene (Miralax Powder Packet) 17 gm DAILY PRN PO 02/25/17 11:30 03/27/17 11:29 Ibuprofen (Advil Tab) 400 mg TID PRN PO 02/25/17 16:15 03/27/17 16:14 02/25/17 16:26 400 MG Nicotine (Nicoderm Cq 14MG Patch) 1 patch QAM TD 02/26/17 09:00 03/28/17 08:59 Miscellaneous (Remove Nicoderm Patch) 1 ea HS N/A 02/25/17 21:00 03/27/17 20:59
--- NOTE | 2017-02-25 17:37 | DIAGNOSTIC IMAGING REPORT ---
CT OF THE HEAD WITHOUT CONTRAST CLINICAL HISTORY: Headache following fall. Evaluate for bleed. COMPARISON STUDY: Head CT February 15, 2017. CT DOSE: 614.27 mGy.cm TECHNIQUE: Helical axial images of the head were obtained without IV contrast. Automated exposure control was utilized for the study. A dose lowering technique was utilized adhering to the principles of ALARA. FINDINGS: No acute intracranial hemorrhage, midline shift or mass effect is present. Moderate to marked atrophy, greater than expected for age, is unchanged since exam of February 15, 2017. 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 There are no findings to suggest acute dural sinus thrombosis or acute territorial infarct. The appearance of the brain is unchanged. There is no calvarial fracture. IMPRESSION: No acute intracranial findings. No change since CT of February 15, 2017. Electronically signed by: Kalin Roberts M.D. 02/25/2017 5:35 PM Dictated Date/Time: 02/25/2017 5:33 PM
--- NOTE | 2017-02-25 17:54 | DIAGNOSTIC IMAGING REPORT ---
BILATERAL LOWER EXTREMITY VENOUS DOPPLER CLINICAL HISTORY: Hyponatremia. COMPARISON STUDY: Bilateral lower extremity venous Doppler July 18, 2016. TECHNIQUE: Sonography of the deep venous system of the bilateral lower extremities was performed. Compression and augmentation were evaluated. FINDINGS: The bilateral common femoral, superficial femoral and popliteal veins were compressible. Augmentation was normal. Flow was shown within the deep calf vessels. IMPRESSION: No evidence of deep venous thrombus within the bilateral lower extremities. Electronically signed by: Kalin Roberts M.D. 02/25/2017 5:53 PM Dictated Date/Time: 02/25/2017 5:52 PM
[2017-02-26 00:02] VITALS: BP 137/83; PULSE 68; TEMP 36.7; O2SAT 95
[2017-02-26 07:47] VITALS: BP 132/80; PULSE 68; TEMP 36.7; O2SAT 96
[2017-02-26] MEDS: NICOTINE 14 MG/24 HR TDSY TD SCH (08:22)
[2017-02-26] MEDS: THIAMINE HCL 100 MG TAB PO SCH (08:23)
[2017-02-26] MEDS: ASPIRIN 81 MG ECTAB PO SCH (08:23)
[2017-02-26] MEDS: BOOST PLUS VANILLA PO SCH ×4 (08:23→20:31)
[2017-02-26] MEDS: MULTIVITAMIN TAB PO SCH (08:24)
[2017-02-26 08:31] LABS: CALCIUM 8.8 mg/dl (8.5-10.1); CREATININE 0.46 mg/dl (0.60-1.40); POTASSIUM 4.1 mmol/L (3.5-5.1)
[2017-02-26] MEDS: IBUPROFEN 200 MG TAB PO PRN ×2 (09:55→17:36)
[2017-02-26 14:53] VITALS: BP 106/61; PULSE 82; TEMP 36.9; O2SAT 96
--- NOTE | 2017-02-26 18:57 | Progress Note ---
Medicine Progress Note Date & Time of Visit: Feb 26, 2017 at 18:54. Subjective patient seen resting in bed, comfortable no abdominal pain headache resolving denies other symptoms Objective Last 8 Hrs Date Time Temp Pulse Resp B/P (MAP) Pulse Ox O2 Delivery O2 Flow Rate FiO2 02/26/17 16:00 Room Air 02/26/17 14:53 36.9 82 18 106/61 (76) 96 Room Air Physical Exam: General- oriented x 3, not in distress, speaks in sentences with no effort Lungs- no rales/wheezes, clear breath sounds bilaterally Heart- regular rhythm; no murmur, normal rate Abdomen- normal bowel sounds, soft, nontender Extremities- no pretibial edema, no calf tenderness Neuro- alert, oriented x 3; no gross focal deficits Skin- warm & dry Laboratory Results: Last 24 Hours Test 02/26/17 01:13 02/26/17 07:44 02/26/17 18:45 Urine Osmolality 205 mOms/kg Sodium Level 131 mmol/L Potassium Level 4.1 mmol/L Chloride Level 96 mmol/L Carbon Dioxide Level 29 mmol/L Anion Gap 6.0 mmol/L Blood Urea Nitrogen 10 mg/dl Creatinine 0.46 mg/dl Est Creatinine Clear Calc Drug Dose 140.8 ml/min Estimated GFR () 149.4 Estimated GFR (Non- 128.9 BUN/Creatinine Ratio 22.0 Random Glucose 85 mg/dl Calcium Level 8.8 mg/dl Assessment & Plan Hyponatremia -- Na improved -- fluid restriction monitor Unresponsiveness Related to alcohol intoxication Alcohol level on admission was 164 CT head on admission showed no acute abnormality -- resolved Pneumonia Possible aspiration -pt was found obtunded CXR - Patchy left lower lobe airspace opacity which has progressed Chest CT - Bilateral lower lobe airspace opacities including a 3.3 x 2.2 cm focal area of consolidation within the left lower lobe. This favors a pneumonia possibly due to aspiration. Repeat CXR showed no change in the left basilar airspace opacity and trace left pleural effusion -- s/p 5 days Azithromycin -- remains asymptomatic HX OF Alcoholism Gabapentin taper done alcohol protocol; thiamine, folic acid, multivitamin Generalized Weakness Continue Physical therapy awaiting SNF placement DVT ppx SCDs encouraged to ambulate more DISPOSITION awaiting placement Current Inpatient Medications: Current Inpatient Medications Medications (Trade) Dose Ordered Sig/Jaylene Route Start Time Stop Time Status Last Admin Dose Admin Acetaminophen (Tylenol Tab) 650 mg Q4H PRN PO 02/15/17 02:45 03/17/17 02:44 02/25/17 18:20 650 MG Ondansetron HCl (Zofran Inj) 4 mg Q6H PRN IV 02/15/17 02:45 03/17/17 02:44 02/25/17 11:09 4 MG Lorazepam (Ativan Inj) PRN Dosing -Active Protocol Q1H PRN IV 02/15/17 02:45 03/17/17 02:44 Aspirin (Ecotrin Tab) 81 mg QAM PO 02/16/17 08:00 03/18/17 08:59 02/26/17 08:23 81 MG Thiamine HCl (Vitamin B-1 Tab) 100 mg QAM PO 02/16/17 08:00 03/18/17 08:59 02/26/17 08:23 100 MG Multivitamins (Multivitamin Tab) 1 tab QAM PO 02/15/17 08:00 03/17/17 08:59 02/26/17 08:24 1 TAB Folic Acid (Folvite Tab) 1 mg QAM PO 02/15/17 08:00 03/17/17 08:59 02/26/17 08:23 1 MG Enteral Nutritional Formula (Boost Plus Vanilla) 1 can BID PO 02/15/17 20:00 03/17/17 19:59 02/26/17 08:23 1 CAN Menthol (Nice Espinoza) 1 espinoza Q2R PRN PO 02/18/17 17:30 03/20/17 17:29 Al Hydroxide/Mg Hydroxide (Maalox Susp) 30 ml Q6H PRN PO 02/25/17 11:30 03/27/17 11:29 Senna/Docusate Sodium (Senokot S Tab) 1 tab DAILY PRN PO 02/25/17 11:30 03/27/17 11:29 Polyethylene (Miralax Powder Packet) 17 gm DAILY PRN PO 02/25/17 11:30 03/27/17 11:29 Ibuprofen (Advil Tab) 400 mg TID PRN PO 02/25/17 16:15 03/27/17 16:14 02/26/17 17:36 400 MG Nicotine (Nicoderm Cq 14MG Patch) 1 patch QAM TD 02/26/17 09:00 03/28/17 08:59 Miscellaneous (Remove Nicoderm Patch) 1 ea HS N/A 02/25/17 21:00 03/27/17 20:59 02/25/17 20:49 1 EA
[2017-02-26 19:27] LABS: BUN/CREATININE RATIO 30.3 (10-20); CALCIUM 8.3 mg/dl (8.5-10.1); CREATININE 0.59 mg/dl (0.60-1.40); POTASSIUM 4.5 mmol/L (3.5-5.1)
[2017-02-26 23:07] VITALS: BP 127/77; PULSE 67; TEMP 36.8; O2SAT 96
[2017-02-27] MEDS: IBUPROFEN 200 MG TAB PO PRN ×3 (00:31→18:50)
[2017-02-27 07:10] VITALS: BP 150/86; PULSE 72; TEMP 36.9; O2SAT 93
[2017-02-27] MEDS: MULTIVITAMIN TAB PO SCH (07:59)
[2017-02-27] MEDS: ASPIRIN 81 MG ECTAB PO SCH (08:00)
[2017-02-27] MEDS: THIAMINE HCL 100 MG TAB PO SCH (08:00)
[2017-02-27] MEDS: NICOTINE 14 MG/24 HR TDSY TD SCH (08:00)
[2017-02-27] MEDS: ONDANSETRON INJ 2 MG/ML 2 ML VIAL IV PRN (10:04)
[2017-02-27] MEDS: BOOST PLUS VANILLA PO SCH ×4 (10:08→22:13)
[2017-02-27 14:53] VITALS: BP 116/78; PULSE 75; TEMP 36.8; O2SAT 96
[2017-02-27 15:45] LABS: BASO % 0.6 %; BASO ABS # 0.06 K/uL (0-0.2); COMPLETE YES; EOS % 5.9 %; HEMATOCRIT 30.5 % (42-52); IG% 1.7 %; LYMPH % 25.7 %; LYMPH ABS # 2.59 K/uL (1.2-3.4); MEAN CELL VOLUME 95.3 fL (80-100); MEAN CORPUSCULAR HEMOGLOBIN 31.9 pg (25-34); MEAN CORPUSCULAR HGB CONC 33.4 g/dl (32-36); MEAN PLATELET VOLUME 7.9 fL (7.4-10.4); MONO % 8.1 %; PLATELET COUNT 546 K/uL (130-400); WHITE BLOOD COUNT 10.09 K/uL (4.8-10.8)
[2017-02-27 16:00] VITALS: O2SAT 96
[2017-02-27 16:11] LABS: CALCIUM 8.3 mg/dl (8.5-10.1); CREATININE 0.56 mg/dl (0.60-1.40); POTASSIUM 4.6 mmol/L (3.5-5.1)
--- NOTE | 2017-02-27 19:38 | Progress Note ---
Medicine Progress Note Date & Time of Visit: Feb 27, 2017 at 19:32. Subjective patient seen resting in bed, sitting up feeling fine has intermittent epigastric pain constipated no other symptoms Objective Last 8 Hrs Date Time Temp Pulse Resp B/P (MAP) Pulse Ox O2 Delivery O2 Flow Rate FiO2 02/27/17 14:53 36.8 75 18 116/78 (91) 96 Room Air Physical Exam: General- oriented x 3, not in distress, speaks in sentences with no effort Lungs- clear BS bilaterally, no rales/wheeze Heart- regular rhythm; no murmur, normal rate Abdomen- normal bowel sounds, soft, nontender Extremities- no pretibial edema, no calf tenderness Neuro- alert, oriented x 3; no gross focal deficits Skin- warm & dry Laboratory Results: Last 24 Hours Test 02/27/17 15:18 White Blood Count 10.09 K/uL Red Blood Count 3.20 M/uL Hemoglobin 10.2 g/dL Hematocrit 30.5 % Mean Corpuscular Volume 95.3 fL Mean Corpuscular Hemoglobin 31.9 pg Mean Corpuscular Hemoglobin Concent 33.4 g/dl Platelet Count 546 K/uL Mean Platelet Volume 7.9 fL Neutrophils (%) (Auto) 58.0 % Lymphocytes (%) (Auto) 25.7 % Monocytes (%) (Auto) 8.1 % Eosinophils (%) (Auto) 5.9 % Basophils (%) (Auto) 0.6 % Neutrophils # (Auto) 5.85 K/uL Lymphocytes # (Auto) 2.59 K/uL Monocytes # (Auto) 0.82 K/uL Eosinophils # (Auto) 0.60 K/uL Basophils # (Auto) 0.06 K/uL RDW Standard Deviation 48.1 fL RDW Coefficient of Variation 13.7 % Immature Granulocyte % (Auto) 1.7 % Immature Granulocyte # (Auto) 0.17 K/uL Sodium Level 127 mmol/L Potassium Level 4.6 mmol/L Chloride Level 94 mmol/L Carbon Dioxide Level 27 mmol/L Anion Gap 6.0 mmol/L Blood Urea Nitrogen 16 mg/dl Creatinine 0.56 mg/dl Est Creatinine Clear Calc Drug Dose 115.7 ml/min Estimated GFR () 137.8 Estimated GFR (Non- 118.9 BUN/Creatinine Ratio 29.0 Random Glucose 90 mg/dl Calcium Level 8.3 mg/dl Assessment & Plan Hyponatremia -- Na ~130s - serum osm, urine Na, urine Osm noted - possible SIADH, hypothyroid, adrenal insufficiency, drugs - check tSH, cortisol -- fluid restriction monitor Epigastric pain -- no hematochezia, melena, anorexia -- trial of PPI from constipation? laxatives ordered Unresponsiveness Related to alcohol intoxication Alcohol level on admission was 164 CT head on admission showed no acute abnormality -- resolved Pneumonia Possible aspiration -pt was found obtunded CXR - Patchy left lower lobe airspace opacity which has progressed Chest CT - Bilateral lower lobe airspace opacities including a 3.3 x 2.2 cm focal area of consolidation within the left lower lobe. This favors a pneumonia possibly due to aspiration. Repeat CXR showed no change in the left basilar airspace opacity and trace left pleural effusion -- s/p 5 days Azithromycin -- remains asymptomatic HX OF Alcoholism Gabapentin taper done alcohol protocol; thiamine, folic acid, multivitamin Generalized Weakness Continue Physical therapy awaiting SNF placement DVT ppx SCDs encouraged to ambulate more DISPOSITION awaiting placement Current Inpatient Medications: Current Inpatient Medications Medications (Trade) Dose Ordered Sig/Jaylene Route Start Time Stop Time Status Last Admin Dose Admin Acetaminophen (Tylenol Tab) 650 mg Q4H PRN PO 02/15/17 02:45 03/17/17 02:44 02/25/17 18:20 650 MG Ondansetron HCl (Zofran Inj) 4 mg Q6H PRN IV 02/15/17 02:45 03/17/17 02:44 02/27/17 10:04 4 MG Lorazepam (Ativan Inj) PRN Dosing -Active Protocol Q1H PRN IV 02/15/17 02:45 03/17/17 02:44 Aspirin (Ecotrin Tab) 81 mg QAM PO 02/16/17 08:00 03/18/17 08:59 02/27/17 08:00 81 MG Thiamine HCl (Vitamin B-1 Tab) 100 mg QAM PO 02/16/17 08:00 03/18/17 08:59 02/27/17 08:00 100 MG Multivitamins (Multivitamin Tab) 1 tab QAM PO 02/15/17 08:00 03/17/17 08:59 02/27/17 07:59 1 TAB Folic Acid (Folvite Tab) 1 mg QAM PO 02/15/17 08:00 03/17/17 08:59 02/27/17 08:00 1 MG Enteral Nutritional Formula (Boost Plus Vanilla) 1 can BID PO 02/15/17 20:00 03/17/17 19:59 02/27/17 10:08 1 CAN Menthol (Nice Espinoza) 1 espinoza Q2R PRN PO 02/18/17 17:30 03/20/17 17:29 Al Hydroxide/Mg Hydroxide (Maalox Susp) 30 ml Q6H PRN PO 02/25/17 11:30 03/27/17 11:29 Senna/Docusate Sodium (Senokot S Tab) 1 tab DAILY PRN PO 02/25/17 11:30 03/27/17 11:29 Polyethylene (Miralax Powder Packet) 17 gm DAILY PRN PO 02/25/17 11:30 03/27/17 11:29 02/27/17 13:55 17 GM Ibuprofen (Advil Tab) 400 mg TID PRN PO 02/25/17 16:15 03/27/17 16:14 02/27/17 18:50 400 MG Nicotine (Nicoderm Cq 14MG Patch) 1 patch QAM TD 02/26/17 09:00 03/28/17 08:59 Miscellaneous (Remove Nicoderm Patch) 1 ea HS N/A 02/25/17 21:00 03/27/17 20:59 02/25/17 20:49 1 EA
[2017-02-27 23:04] VITALS: BP 126/75; PULSE 79; TEMP 37; O2SAT 97
[2017-02-28] MEDS: IBUPROFEN 200 MG TAB PO PRN ×3 (02:07→19:30)
[2017-02-28] MEDS: PANTOprazole SOD 40 MG TAB PO SCH (06:32)
[2017-02-28 06:43] LABS: BLOOD UREA NITROGEN 13 mg/dl (7-18); BUN/CREATININE RATIO 31.1 (10-20); CALCIUM 8.9 mg/dl (8.5-10.1); CARBON DIOXIDE 28 mmol/L (21-32); CHLORIDE 96 mmol/L (98-107); CREATININE 0.41 mg/dl (0.60-1.40); GLUCOSE 84 mg/dl (70-99); POTASSIUM 4.5 mmol/L (3.5-5.1); SODIUM 130 mmol/L (136-145)
[2017-02-28 07:21] VITALS: BP 127/82; PULSE 71; O2SAT 96
[2017-02-28] MEDS: ACETAMINOPHEN 325 MG TAB PO PRN (07:35)
[2017-02-28] MEDS: MULTIVITAMIN TAB PO SCH (07:35)
[2017-02-28] MEDS: NICOTINE 14 MG/24 HR TDSY TD SCH (07:37)
[2017-02-28] MEDS: ASPIRIN 81 MG ECTAB PO SCH (08:57)
[2017-02-28] MEDS: THIAMINE HCL 100 MG TAB PO SCH (08:57)
[2017-02-28] MEDS: BOOST PLUS VANILLA PO SCH ×4 (08:58→20:32)
[2017-02-28 15:37] VITALS: BP 110/75; PULSE 66; TEMP 37.2; O2SAT 97
--- NOTE | 2017-02-28 18:34 | Progress Note ---
Internal Med Progress Note Date of Service: Feb 28, 2017. Provider Documentation: SUBJECTIVE: resting comfortably eating dinner says was nauseous earlier but doing ok now afebrile OBJECTIVE: Vital Signs-as noted below Exam: General-alert and awake. Not in distress ENT-normal hearing Neck-no neck masses Lungs-cta b/l no wheezing or crackles Heart-s1 and s2 heard regular rhythm no murmurs Abdomen-soft bowel sounds present non tender no distension Extremities-no edema no erythema Neuro-alert and oriented moves extremities Lab data as noted below. ASSESSMENT & PLAN: Hyponatremia Na ~130s serum osm, urine Na, urine Osm noted possible SIADH, hypothyroid, adrenal insufficiency, drugs Normal tSH, cortisol On fluid restriction Will monitor Epigastric pain no complaints today Unresponsiveness Related to alcohol intoxication Alcohol level on admission was 164 CT head on admission showed no acute abnormality resolved Pneumonia Possible aspiration -pt was found obtunded CXR - Patchy left lower lobe airspace opacity which has progressed Chest CT - Bilateral lower lobe airspace opacities including a 3.3 x 2.2 cm focal area of consolidation within the left lower lobe. This favors a pneumonia possibly due to aspiration. Repeat CXR showed no change in the left basilar airspace opacity and trace left pleural effusion s/p 5 days Azithromycin stable HX OF Alcoholism Gabapentin taper done alcohol protocol; thiamine, folic acid, multivitamin stable Generalized Weakness Continue Physical therapy awaiting SNF placement DVT ppx SCDs encouraged to ambulate more DISPOSITION awaiting placement Vital Signs: Date Time Temp Pulse Resp B/P (MAP) Pulse Ox O2 Delivery O2 Flow Rate FiO2 02/28/17 16:00 Room Air 02/28/17 15:37 37.2 66 18 110/75 (87) 97 Room Air 02/28/17 08:00 Room Air 02/28/17 07:21 71 16 127/82 (97) 96 Room Air 02/28/17 00:00 Room Air 02/27/17 23:04 37.0 79 16 126/75 (92) 97 Room Air Lab Results: Results Past 24 Hours Test 02/28/17 05:58 02/28/17 07:06 Range/Units Sodium Level 130 136-145 mmol/L Potassium Level 4.5 3.5-5.1 mmol/L Chloride Level 96 98-107 mmol/L Carbon Dioxide Level 28 21-32 mmol/L Anion Gap 6.0 3-11 mmol/L Blood Urea Nitrogen 13 7-18 mg/dl Creatinine 0.41 0.60-1.40 mg/dl Est Creatinine Clear Calc Drug Dose 158.0 ml/min Estimated GFR () > 150.0 Estimated GFR (Non- 135.2 BUN/Creatinine Ratio 31.1 10-20 Random Glucose 84 70-99 mg/dl Calcium Level 8.9 8.5-10.1 mg/dl Thyroid Stimulating Hormone (TSH) 2.960 0.300-4.500 uIu/ml Cortisol AM Sample 13.45 4.30-22.40 mcg/dl
[2017-02-28 20:00] VITALS: O2SAT 97
[2017-03-01] VITALS: O2SAT 97
[2017-03-01 00:22] VITALS: BP 139/84; PULSE 78; TEMP 36.8; O2SAT 95
[2017-03-01 07:18] VITALS: BP 146/82; PULSE 67; TEMP 36.9; O2SAT 96
[2017-03-01] MEDS: MULTIVITAMIN TAB PO SCH (07:55)
[2017-03-01] MEDS: PANTOprazole SOD 40 MG TAB PO SCH (07:55)
[2017-03-01] MEDS: ASPIRIN 81 MG ECTAB PO SCH (07:55)
[2017-03-01] MEDS: THIAMINE HCL 100 MG TAB PO SCH (07:55)
[2017-03-01] MEDS: BOOST PLUS VANILLA PO SCH ×4 (07:56→20:43)
[2017-03-01] MEDS: NICOTINE 14 MG/24 HR TDSY TD SCH (07:56)
[2017-03-01] MEDS: IBUPROFEN 200 MG TAB PO PRN ×2 (13:19→19:46)
[2017-03-01 14:59] VITALS: BP 144/89; PULSE 78; TEMP 36.8; O2SAT 97
[2017-03-01] MEDS ORDERED: ALUMINUM/MAGNESIUM/SIMETH (MAALOX MAX) 30 ML UDC PO ONE (17:30)
--- NOTE | 2017-03-01 17:35 | Progress Note ---
Internal Med Progress Note Date of Service: Mar 01, 2017. Provider Documentation: SUBJECTIVE: resting comfortably complains of mild nausea and epigastric discomfort no sob afebrile OBJECTIVE: Vital Signs-as noted below Exam: General-alert and awake. Not in distress ENT-normal hearing Neck-no neck masses Lungs-cta b/l no wheezing or crackles Heart-s1 and s2 heard regular rhythm no murmurs Abdomen-soft bowel sounds present non tender no distension Extremities-no edema no erythema Neuro-alert and oriented moves extremities Lab data as noted below. ASSESSMENT & PLAN: Hyponatremia Na ~130s serum osm, urine Na, urine Osm noted possible SIADH, hypothyroid, adrenal insufficiency, drugs Normal tSH, cortisol On fluid restriction 2lts/day Will monitor Epigastric pain ppi maalox. Unresponsiveness Related to alcohol intoxication Alcohol level on admission was 164 CT head on admission showed no acute abnormality resolved Pneumonia Possible aspiration -pt was found obtunded CXR - Patchy left lower lobe airspace opacity which has progressed Chest CT - Bilateral lower lobe airspace opacities including a 3.3 x 2.2 cm focal area of consolidation within the left lower lobe. This favors a pneumonia possibly due to aspiration. Repeat CXR showed no change in the left basilar airspace opacity and trace left pleural effusion s/p 5 days Azithromycin stable HX OF Alcoholism Gabapentin taper done alcohol protocol; thiamine, folic acid, multivitamin stable rehab vs home Generalized Weakness Continue Physical therapy DVT ppx SCDs encouraged to ambulate more DISPOSITION social service for d/c planning awaiting placement vs home Vital Signs: Date Time Temp Pulse Resp B/P (MAP) Pulse Ox O2 Delivery O2 Flow Rate FiO2 03/01/17 14:59 36.8 78 18 144/89 (107) 97 Room Air 03/01/17 08:00 Room Air 03/01/17 07:18 36.9 67 16 146/82 (103) 96 03/01/17 00:22 36.8 78 18 139/84 (102) 95 Room Air 03/01/17 00:00 97 Room Air 02/28/17 20:00 97 Room Air
[2017-03-01 19:47] LABS: BUN/CREATININE RATIO 26.5 (10-20); CALCIUM 8.6 mg/dl (8.5-10.1); CREATININE 0.66 mg/dl (0.60-1.40); POTASSIUM 4.6 mmol/L (3.5-5.1)
[2017-03-01 23:29] VITALS: BP 119/84; PULSE 73; TEMP 36.8; O2SAT 96
[2017-03-02] MEDS: ACETAMINOPHEN 325 MG TAB PO PRN (04:17)
[2017-03-02] MEDS: PANTOprazole SOD 40 MG TAB PO SCH (05:47)
[2017-03-02 07:22] VITALS: BP 150/82; PULSE 67; TEMP 36.9; O2SAT 98
[2017-03-02] MEDS: MULTIVITAMIN TAB PO SCH (08:16)
[2017-03-02] MEDS: ASPIRIN 81 MG ECTAB PO SCH (08:16)
[2017-03-02] MEDS: THIAMINE HCL 100 MG TAB PO SCH (08:16)
[2017-03-02] MEDS: NICOTINE 14 MG/24 HR TDSY TD SCH (08:16)
[2017-03-02 08:18] LABS: BLOOD UREA NITROGEN 12 mg/dl (7-18); BUN/CREATININE RATIO 27.9 (10-20); CALCIUM 9.2 mg/dl (8.5-10.1); CARBON DIOXIDE 27 mmol/L (21-32); CHLORIDE 95 mmol/L (98-107); CREATININE 0.43 mg/dl (0.60-1.40); GLUCOSE 80 mg/dl (70-99); POTASSIUM 4.2 mmol/L (3.5-5.1); SODIUM 130 mmol/L (136-145)
[2017-03-02] MEDS: BOOST PLUS VANILLA PO SCH ×4 (09:41→20:46)
[2017-03-02] MEDS: IBUPROFEN 200 MG TAB PO PRN (14:29)
[2017-03-02 15:03] VITALS: BP 122/72; PULSE 78; TEMP 37; O2SAT 96
--- NOTE | 2017-03-02 15:47 | Progress Note ---
Internal Med Progress Note Date of Service: Mar 02, 2017. Provider Documentation: SUBJECTIVE: complains of on and off mild epigastric discomfort no complaints now afebrile Drug and alcohol special education case manager in room and discussing the options available to the patient OBJECTIVE: Vital Signs-as noted below Exam: General-alert and awake. Not in distress ENT-normal hearing Neck-no neck masses Lungs-cta b/l no wheezing or crackles Heart-s1 and s2 heard regular rhythm no murmurs Abdomen-soft bowel sounds present non tender no distension Extremities-no edema no erythema Neuro-alert and oriented moves extremities Lab data as noted below. ASSESSMENT & PLAN: Hyponatremia Na ~130s serum osm, urine Na, urine Osm noted possible SIADH, hypothyroid, adrenal insufficiency, drugs Normal tSH, cortisol On fluid restriction 2lts/day Na 130 today Will monitor Epigastric pain ppi maalox prn. HX OF Alcoholism Gabapentin taper done alcohol protocol; thiamine, folic acid, multivitamin stable rehab vs home Generalized Weakness Continue Physical therapy resolved conditions: Unresponsiveness Related to alcohol intoxication Alcohol level on admission was 164 CT head on admission showed no acute abnormality resolved Pneumonia Possible aspiration -pt was found obtunded CXR - Patchy left lower lobe airspace opacity which has progressed Chest CT - Bilateral lower lobe airspace opacities including a 3.3 x 2.2 cm focal area of consolidation within the left lower lobe. This favors a pneumonia possibly due to aspiration. Repeat CXR showed no change in the left basilar airspace opacity and trace left pleural effusion s/p 5 days Azithromycin stable DVT ppx SCDs encouraged to ambulate more DISPOSITION social service for d/c planning awaiting placement vs home possible d/c in home Vital Signs: Date Time Temp Pulse Resp B/P (MAP) Pulse Ox O2 Delivery O2 Flow Rate FiO2 03/02/17 15:03 37.0 78 20 122/72 (89) 96 Room Air 03/02/17 08:00 Room Air 03/02/17 07:22 36.9 67 18 150/82 (104) 98 Room Air 03/02/17 00:21 Room Air 03/01/17 23:29 36.8 73 18 119/84 (96) 96 Room Air 03/01/17 16:00 Room Air Lab Results: Results Past 24 Hours Test 03/01/17 19:08 03/02/17 07:31 Range/Units Sodium Level 127 130 136-145 mmol/L Potassium Level 4.6 4.2 3.5-5.1 mmol/L Chloride Level 94 95 98-107 mmol/L Carbon Dioxide Level 28 27 21-32 mmol/L Anion Gap 5.0 8.0 3-11 mmol/L Blood Urea Nitrogen 18 12 7-18 mg/dl Creatinine 0.66 0.43 0.60-1.40 mg/dl Est Creatinine Clear Calc Drug Dose 98.1 150.6 ml/min Estimated GFR () 128.8 > 150.0 Estimated GFR (Non- 111.2 132.6 BUN/Creatinine Ratio 26.5 27.9 10-20 Random Glucose 88 80 70-99 mg/dl Calcium Level 8.6 9.2 8.5-10.1 mg/dl
[2017-03-02 19:37] LABS: CREATININE 0.81 mg/dl (0.60-1.40)
[2017-03-02 19:38] LABS: BUN/CREATININE RATIO 24.4 (10-20); CALCIUM 8.9 mg/dl (8.5-10.1); POTASSIUM 4.5 mmol/L (3.5-5.1)
[2017-03-03] MEDS: ACETAMINOPHEN 325 MG TAB PO PRN (01:12)
[2017-03-03 01:21] VITALS: BP 132/76; PULSE 75; TEMP 37; O2SAT 97
[2017-03-03] MEDS: PANTOprazole SOD 40 MG TAB PO SCH (06:34)
[2017-03-03 07:17] VITALS: BP 120/69; PULSE 64; TEMP 36.8; O2SAT 96
[2017-03-03] MEDS: NICOTINE 14 MG/24 HR TDSY TD SCH (08:06)
[2017-03-03] MEDS: MULTIVITAMIN TAB PO SCH (08:07)
[2017-03-03] MEDS: THIAMINE HCL 100 MG TAB PO SCH (08:07)
[2017-03-03] MEDS: ASPIRIN 81 MG ECTAB PO SCH (08:07)
[2017-03-03] MEDS: BOOST PLUS VANILLA PO SCH ×2 (09:13)
[2017-03-03] MEDS ORDERED: ONDANSETRON 4 MG TAB PO ONE (10:03)
[2017-03-03] MEDS: IBUPROFEN 200 MG TAB PO PRN (10:36)
--- NOTE | 2017-03-03 14:48 | Discharge Instructions ---
Discharge Instructions Date of Service Mar 03, 2017. Admission Reason for Admission: Hyponatremia Discharge Discharge Diagnosis / Problem: hyponatremia, alcoholism Discharge Goals Goal(s): Decrease discomfort, Improve function Activity Recommendations Activity Limitations: resume your previous activity . Instructions / Follow-Up Instructions / Follow-Up FOLLOWUP WITH FAMILY DOCTOR ONE WEEK FOLLOWUP [facility] FOR [facility]HAB PLACEMENT. AVOID ADVIL, IBUPROFEN , MOTRIN, ALEVE THEY CAN CAUSE STOMACH ULCERS AND KIDNEY FAILURE. Current Hospital Diet Patient's current hospital diet: Regular Diet Discharge Diet Recommended Diet: Regular Diet Fluid Restriction: 2000 ml (8 cups) Pending Studies Studies pending at discharge: no Medical Emergencies . Who to Call and When: Medical Emergencies: If at any time you feel your situation is an emergency, please call 911 immediately. . Non-Emergent Contact Non-Emergency issues call your: Primary Care Provider . . "Provider Documentation" section prepared by Marcus Dalton. . VTE Core Measure Inpt VTE Proph given/why not?: SCD's
[2017-03-03] MEDS ORDERED: OMEP40CA41 PO (14:49)
[2017-03-03 15:18] VITALS: BP 120/69; PULSE 64; TEMP 36.8; O2SAT 96
--- NOTE | 2017-03-03 19:15 | Progress Note ---
Internal Med Progress Note Date of Service: Mar 03, 2017. Provider Documentation: SUBJECTIVE: resting comfortably eating fine afebrile ok for discharge OBJECTIVE: Vital Signs-as noted below Exam: General-alert and awake. Not in distress ENT-normal hearing Neck-no neck masses Lungs-cta b/l no wheezing or crackles Heart-s1 and s2 heard regular rhythm no murmurs Abdomen-soft bowel sounds present non tender no distension Extremities-no edema no erythema Neuro-alert and oriented moves extremities Lab data as noted below. ASSESSMENT & PLAN: Hyponatremia Na ~130s serum osm, urine Na, urine Osm noted possible SIADH, hypothyroid, adrenal insufficiency, drugs Normal tSH, cortisol On fluid restriction 2lts/day needs f/u alcohol cessation Epigastric pain ppi maalox prn. HX OF Alcoholism Gabapentin taper done alcohol protocol; thiamine, folic acid, multivitamin stable rehab vs home discharged home with f/u with rehab when bed available Generalized Weakness Continue Physical therapy Unresponsiveness Related to alcohol intoxication Alcohol level on admission was 164 CT head on admission showed no acute abnormality resolved Pneumonia Possible aspiration -pt was found obtunded CXR - Patchy left lower lobe airspace opacity which has progressed Chest CT - Bilateral lower lobe airspace opacities including a 3.3 x 2.2 cm focal area of consolidation within the left lower lobe. This favors a pneumonia possibly due to aspiration. Repeat CXR showed no change in the left basilar airspace opacity and trace left pleural effusion s/p 5 days Azithromycin stable discharged Vital Signs: Date Time Temp Pulse Resp B/P (MAP) Pulse Ox O2 Delivery O2 Flow Rate FiO2 03/03/17 15:18 36.8 64 18 96 Room Air 03/03/17 08:00 Room Air 03/03/17 07:17 36.8 64 18 120/69 (86) 96 03/03/17 01:21 37.0 75 18 132/76 (94) 97 Room Air 03/03/17 00:00 Room Air 03/02/17 20:00 Room Air
--- NOTE | 2017-03-03 19:25 | Discharge Summary ---
Discharge Summary Date of Service Mar 03, 2017. Discharge Summary Admission Date: Feb 15, 2017 at 02:28 Discharge Date: Mar 03, 2017 Discharge Disposition: Home Principal Diagnosis: UNRESPONSIVENESS ALCOHOLISM PNEUMONIA' HYPONATREMIA Secondary Diagnoses/Problems: for alcohol dependence, ongoing tobacco abuse, chronic anemia (baseline hemoglobin of 10-11), homelessness Procedures: HEAD CT; No acute intracranial abnormality. Greater than expected central volume loss for the patient's age. CTA CHEST: 1. No evidence for pulmonary embolus with limitations as described above. 2. Trace pericardial effusion and a trace left pleural effusion. 3. Bilateral lower lobe airspace opacities including a 3.3 x 2.2 cm focal area of consolidation within the left lower lobe. This favors a pneumonia possibly due to aspiration. However, one to [address] follow is recommended to ensure resolution of the focal left lower lobe airspace opacity and to exclude the less likely possibility of an underlying mass. There are also a few small nodular airspace opacities within the right upper lobe posteriorly. 4. Aneurysmal dilatation of the ascending thoracic aorta measuring up to 4.8 cm at the aortic root. CT CERVICAL SPINE: Moderate multilevel degenerative change. No evidence of acute fracture or traumatic subluxation. CT ABD/PELVIS: Bibasal airspace opacities likely atelectatic. No evidence of acute intra-abdominal or pelvic injury. B/L LOWER EXTREMITY DOPPLER; No evidence of deep venous thrombus within the bilateral lower extremities. Medication Reconciliation New Medications: Omeprazole (Prilosec) 40 Mg Cap 1 CAP PO DAILY for 30 Days, #30 CAP 3 Refills Continued Medications: Folic Acid (Folic Acid) 1 Mg Tab 1 MG PO DAILY for 30 Days, #30 TAB Magnesium Chloride (Slow-Mag Tab) 64 Mg Tabcr 64 MG PO QAM for 30 Days, #30 TABS Nicotine (Nicoderm Cq) 21 Mg/24 Hr Dis 1 PATCH TD QAM for 30 Days, #30 PATCH Thiamine HCl (Vitamin B-1) 100 Mg Tab 100 MG PO Q24H for 30 Days, #30 TAB Admission Information HPI (per Admitting provider): History obtained from patient, records, ER MD. Medical history significant for alcohol dependence, ongoing tobacco abuse, chronic anemia (baseline hemoglobin of 10-11), homelessness. Recent confinement a few days ago for electrolyte abnormalities and alcohol abuse. Seen by Nephrology. Patient refused discharge alcohol rehab. Patient [place], feeling tired, no chest pain, no shortness of breath, no syncope. As per records, found to be unresponsive, by EMS. Denies headache, chest pain, shortness of breath, abdominal pain, cough symptoms. Initial SBP in the Emergency Room was 70s. Given Levaquin in the ER for possible pneumonia. Physical Exam (per Admitting): VITAL SIGNS: Blood pressure was noted to be 77/46, later 110/70 pulse rate 80, RR 20, T37, O2 sats 96% on room air. GENERAL: Noted to be restless, tremulous, no respiratory distress, hyposthenic, unkempt. SKIN: Pallor. HEENT: Pale palpebral conjunctivae. Dry mucosa. NECK: No JVD. Supple. CHEST: Decreased effort. Decreased breath sounds. HEART: Regular rate and rhythm. ABDOMEN: Soft. EXTREMITIES: No edema, no tenderness. NEUROLOGIC: No gross focality except for tremors. Hospital Course Hyponatremia Na ~130s serum osm, urine Na, urine Osm noted possible SIADH, hypothyroid, adrenal insufficiency, drugs Normal tSH, cortisol On fluid restriction 2lts/day needs f/u alcohol cessation Epigastric pain ppi maalox prn. HX OF Alcoholism Gabapentin taper done alcohol protocol; thiamine, folic acid, multivitamin stable rehab vs home discharged home with f/u with rehab when bed available Generalized Weakness Continue Physical therapy Unresponsiveness Related to alcohol intoxication Alcohol level on admission was 164 CT head on admission showed no acute abnormality resolved Pneumonia Possible aspiration -pt was found obtunded CXR - Patchy left lower lobe airspace opacity which has progressed Chest CT - Bilateral lower lobe airspace opacities including a 3.3 x 2.2 cm focal area of consolidation within the left lower lobe. This favors a pneumonia possibly due to aspiration. Repeat CXR showed no change in the left basilar airspace opacity and trace left pleural effusion s/p 5 days Azithromycin stable discharged Total time spent on discharge = 35MINUTES This includes examination of the patient, discharge planning, medication reconciliation, and communication with other providers. Discharge Instructions Discharge Instructions Date of Service Mar 03, 2017. Admission Reason for Admission: Hyponatremia Discharge Discharge Diagnosis / Problem: hyponatremia, alcoholism Discharge Goals Goal(s): Decrease discomfort, Improve function Activity Recommendations Activity Limitations: resume your previous activity . Instructions / Follow-Up Instructions / Follow-Up FOLLOWUP WITH FAMILY DOCTOR ONE WEEK FOLLOWUP WITH [facility] FOR REHAB PLACEMENT. AVOID ADVIL, IBUPROFEN , MOTRIN, ALEVE THEY CAN CAUSE STOMACH ULCERS AND KIDNEY FAILURE. Current Hospital Diet Patient's current hospital diet: Regular Diet Discharge Diet Recommended Diet: Regular Diet Fluid Restriction: 2000 ml (8 cups) Pending Studies Studies pending at discharge: no Medical Emergencies . Who to Call and When: Medical Emergencies: If at any time you feel your situation is an emergency, please call 911 immediately. . Non-Emergent Contact Non-Emergency issues call your: Primary Care Provider . . "Provider Documentation" section prepared by Marcus Dalton. . VTE Core Measure Inpt VTE Proph given/why not?: SCD's
[2017-03-08] MEDS ORDERED: MRLP17X PO (14:25)
[2017-03-08] MEDS ORDERED: [UNRECOGNIZED DRUG - CODE] PO (14:25)
[2017-03-08] MEDS ORDERED: FERR325T5 PO (14:25)
[2017-03-08] MEDS ORDERED: LVNIS40 SQ (14:25)
[2017-03-08] MEDS ORDERED: SENN8.6T7 PO (14:25)
[2017-03-08] MEDS ORDERED: NICO14DI5 TD (14:25)
[2017-03-08] MEDS ORDERED: SLWMEC PO (14:25)
[2017-03-08] MEDS ORDERED: TYLOTC500 PO (14:25)
[2017-03-08] MEDS ORDERED: RXC5 PO (14:25)
[2017-03-08] MEDS ORDERED: MULTTAB58 PO (14:33)
[2017-03-14] MEDS ORDERED: ENOX40IN SQ (11:24)
[2017-03-14] MEDS ORDERED: ASCO500T16 PO (11:24)
[2017-03-14] MEDS ORDERED: THIA100T11 PO (11:25)
[2017-03-14] MEDS ORDERED: MULT-506 PO (11:25)
[2017-03-14] MEDS ORDERED: OMEP40CA41 PO (11:25)
[2017-03-14] MEDS ORDERED: ONDA4TAB65 PO (11:25)
[2017-03-14] MEDS ORDERED: OXYC1TAB3 PO (11:25)
[2017-03-14] MEDS ORDERED: ACET1TAB84 PO (11:25)
[2017-03-14] MEDS ORDERED: FERR1TAB13 PO (11:25)
[2017-03-14] MEDS ORDERED: SENN8.6C PO (11:25)
[2017-03-14] MEDS ORDERED: POLY335019 PO (11:25)
[2017-03-14] MEDS ORDERED: NICO14DI31 TD (11:25)
[2017-03-14] MEDS ORDERED: FLV1 PO (11:25)
[2017-04-25] MEDS ORDERED: FERR15DR5 PO (07:42)
[2017-04-25] MEDS ORDERED: MOML PO (07:42)
[2017-04-25] MEDS ORDERED: DOCUSATE/SENNA PO (07:42)
[2017-04-25] MEDS ORDERED: MULT1LIQ6 PO (07:42)
[2017-04-25] MEDS ORDERED: ACET160S3 PO (07:42)
[2017-04-25] MEDS ORDERED: BISA10SU3 PR (07:42)
[2017-04-25] MEDS ORDERED: LANS30CA12 PO (07:42)
[2017-04-25] MEDS ORDERED: SODIENE PR (07:42)
== END 2017-03-03 15:30 | disposition home or self-care (01) | DRG 178 ==
LOC: EDBD 20:49 → C.EDB 20:51 → C.4E 02-15 02:28 → ENRESERV 02-15 02:36 → C.MS2W 02-24 16:16
PROVIDERS: ADMIT Family Medicine; ATTEND Internal Medicine
DX: J69.0 Pneumonitis due to inhalation of food and vomit (principal); E87.1 Hypo-osmolality and hyponatremia; E46 Unspecified protein-calorie malnutrition; F10.229 Alcohol dependence with intoxication, unspecified; I10 Essential (primary) hypertension; F17.200 Nicotine dependence, unspecified, uncomplicated; D64.9 Anemia, unspecified; Z59.0 Homelessness; Z88.0 Allergy status to penicillin; E86.0 Dehydration; Z86.73 Personal history of transient ischemic attack (TIA), and cerebral infarction without residual deficits

== ENCOUNTER 2017-03-04 07:02 | Inpatient (IN) | payer OTHER ==
[~2017-03-04] VITALS: Ht 180.3 cm; Wt 55.5 kg
[~2017-03-04 07:02] MED LIST changes: -KCLP20 PO; +OMEP40CA41 PO; -POTTAB2 PO
--- NOTE | 2017-03-04 07:59 | DIAGNOSTIC IMAGING REPORT ---
RIGHT PELVIS/UNILATERAL HIP 1 VIEW CLINICAL HISTORY: Fall. Right hip pain. COMPARISON: CT of the abdomen and pelvis February 15, 2017. FINDINGS: There is an acute minimally displaced intertrochanteric fracture of the right femur. There is no proximal left femoral fracture. No acute pelvic fracture is identified by radiography. Sacroiliac joints and symphysis pubis are intact. IMPRESSION: Acute minimally displaced intertrochanteric fracture of the right femur. Electronically signed by: Kalin Roberts M.D. 03/04/2017 7:57 AM Dictated Date/Time: 03/04/2017 7:56 AM
[2017-03-04] MEDS ORDERED: ONDANSETRON INJ 2 MG/ML 2 ML VIAL IV STA (08:04)
[2017-03-04] MEDS ORDERED: MoRPHine SULFATE 4 MG/ML 1 ML CARP\\VIAL IV STA (08:04)
[2017-03-04 08:32] LABS: BASO % 0.4 %; BASO ABS # 0.06 K/uL (0-0.2); COMPLETE YES; EOS % 5.4 %; HEMATOCRIT 37.3 % (42-52); LYMPH % 12.6 %; LYMPH ABS # 1.97 K/uL (1.2-3.4); MEAN CELL VOLUME 94.7 fL (80-100); MEAN CORPUSCULAR HEMOGLOBIN 31.5 pg (25-34); MEAN CORPUSCULAR HGB CONC 33.2 g/dl (32-36); MEAN PLATELET VOLUME 8.1 fL (7.4-10.4); MONO % 9.7 %; NEUT % 70.9 %; PLATELET COUNT 558 K/uL (130-400); RED BLOOD COUNT 3.94 M/uL (4.7-6.1); WHITE BLOOD COUNT 15.69 K/uL (4.8-10.8)
[2017-03-04 08:35] VITALS: O2SAT 98; Ht 180.3 cm; Wt 55.5 kg
--- NOTE | 2017-03-04 08:37 | DIAGNOSTIC IMAGING REPORT ---
CHEST 2 VIEWS ROUTINE CLINICAL HISTORY: Preoperative evaluation COMPARISON STUDY: Chest CT February 15, 2017 and chest radiograph February 19, 2017. FINDINGS: An old distal left clavicular fracture is incidentally noted. Note is made of multiple no bilateral rib fractures. A posterior right 10th rib fracture is age indeterminate. There is no pneumothorax or pleural effusion. Left basilar opacity has improved since exam of February 19, 2017. There is no evidence for pulmonary edema. IMPRESSION: 1. No acute cardiopulmonary findings. 2. Numerous old bilateral rib fractures and an age indeterminate posterior right 10th rib fracture. No pneumothorax. Electronically signed by: Kalin Roberts M.D. 03/04/2017 8:36 AM Dictated Date/Time: 03/04/2017 8:31 AM
[2017-03-04 08:39] LABS: PROTHROMBIN TIME (PATIENT) 10.5 SECONDS (9.0-12.0)
[2017-03-04] MEDS ORDERED: NICOTINE 21 MG/24 HR TDSY TD SCH (09:00)
[2017-03-04] MEDS ORDERED: MAGNESIUM HYDROXIDE SUSP 30 ML UDC PO PRN (09:00)
[2017-03-04] MEDS ORDERED: ONDANSETRON INJ 2 MG/ML 2 ML VIAL IV PRN (09:00)
[2017-03-04] MEDS ORDERED: ALUMINUM/MAGNESIUM/SIMETH (MAALOX MAX) 30 ML UDC PO PRN (09:00)
[2017-03-04 09:11] LABS: BLOOD UREA NITROGEN 9 mg/dl (7-18); CREATININE 0.44 mg/dl (0.60-1.40); GLUCOSE 83 mg/dl (70-99)
[2017-03-04 09:12] LABS: ALB/GLOB RATIO 0.8 (0.9-2); ALKALINE PHOSPHATASE 87 U/L (45-117); ALT/SGPT 45 U/L (12-78); AST/SGOT 44 U/L (15-37); BUN/CREATININE RATIO 21.4 (10-20); CALCIUM 9.2 mg/dl (8.5-10.1); CARBON DIOXIDE 26 mmol/L (21-32); CHLORIDE 101 mmol/L (98-107); POTASSIUM 4.7 mmol/L (3.5-5.1); SODIUM 132 mmol/L (136-145)
[2017-03-04 09:30] VITALS: BP 104/68; PULSE 82; TEMP 36.7; O2SAT 97
[2017-03-04] MEDS ORDERED: MoRPHine SULFATE 4 MG/ML 1 ML CARP\\VIAL IV PRN (09:30)
--- NOTE | 2017-03-04 09:40 | HISTORY & PHYSICAL EXAMINATION ---
DATE OF ADMISSION: 03/04/2017 CHIEF COMPLAINT: Status post fall and right hip fracture. HISTORY OF PRESENT ILLNESS: This 51-year-old male with past medical history significant for alcoholism, multiple admissions for alcohol and falls, history of tobacco abuse, chronic anemia, homelessness, was recently in the hospital from February 15 to March 03 , was supposed to go to alcohol rehab but could not find a bed until next month so he was discharged home. The patient says after he went home he drank about 3-4 cans of beer last night and he said he did not drink too much and in the morning when he was walking his legs gave up and he just fell down and took over 20 minutes to get up. He did not lose his consciousness. He was brought into the ER and in the ER he was found to have right hip fracture, pain in the fracture site. Denies any chest pain, no shortness of breath, no cough, no fever, no chills, no headaches, no blurred visions, no dizziness, no nausea, no vomiting, no abdominal pain. Blood pressure slightly on the lower side, currently resting comfortably. ALLERGIES: PENICILLIN. PAST MEDICAL HISTORY: As mentioned above. PAST SURGICAL HISTORY: Childhood hernia surgery. HOME MEDICATIONS: Thiamine, folic acid, omeprazole, nicotine patch. FAMILY HISTORY: History of cancers. SOCIAL HISTORY: A few cigarettes a day, regular alcohol intake, was supposed to go to rehab. He drank about 3-4 cans of beers, currently unemployed. 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 Currently homeless. REVIEW OF SYSTEMS: As per HPI. Rest of review of systems negative. PHYSICAL EXAMINATION: GENERAL: The patient is alert and awake, not in distress. VITAL SIGNS: Temperature is 36.4, pulse 110, respiration rate of 24, blood pressure 117/81, oxygen 98% on room air. HEAD, EYES, EARS, NOSE, AND THROAT: No pallor, no icterus. Pupils equal, round and reactive to light. NECK: No JVD. No neck masses, no carotid bruit. CARDIOVASCULAR: S1, S2 heard, regular rate and rhythm. No murmur, no gallop. RESPIRATORY SYSTEM: Clear to auscultation bilaterally. No wheezing, no crackles. ABDOMEN: Soft, bowel sounds present, nontender. No distention. CENTRAL NERVOUS SYSTEM: Cranial nerves II-XII grossly intact, nonfocal. EXTREMITIES: Right lower extremity slightly shortened and externally rotated. No edema, no erythema seen. LABORATORY DATA: WBC 15.6, hemoglobin 12.4, hematocrit 37.3, platelets 558. Chemistry pending. PT 10.5, INR 1, PTT 25.4. Ethyl alcohol level 49. Chest x-ray, no acute finding seen. Numerous old bilateral rib fractures and an age indeterminate posterior right 10th rib fracture, no pneumothorax. Hip and pelvic x-rays on the right side showed acutely minimally displaced intertrochanteric fracture of the right femur. EKG shows normal sinus rhythm with rate of 81, no acute dissection is seen. ASSESSMENT AND PLAN: This is a 51-year-old male who presents with right hip fracture. 1. Right hip fracture. Patient has history of alcohol abuse, supposed to go to alcohol rehab. Could not find a place until next month, was discharged yesterday. Went home and as per patient drank 3-4 beers and today morning was walking, suddenly fell down and had broken right hip fracture. Currently, pain is under control. His EKG and chest x-ray are okay. The patient is at acceptable risk to proceed with surgery. Ortho is consulted. Plan for surgery in a.m., n.p.o. after midnight. We will put him on clear liquids for now. IV fluids, monitor in the medical floor 2. Alcoholism. alcohol level 49. Will Place him on thiamine, folic acid, multivitamins. Once recovered from right hip fracture the patient may need alcohol rehab. 3. Gastroesophageal reflux disease. Continue PPI. 4. Tobacco abuse. Nicotine patch. 5 DVT prophylaxis. scds for now and then as per orthopedics 5. Disposition. Admit to medical floor. Expect to discharge to rehab. Social service will do discharge planning. LEVEL 1 FULL CODE. MTDD
[2017-03-04] MEDS ORDERED: NURSING VERBAL MED ORDER ONE (10:15)
--- NOTE | 2017-03-04 10:32 | ORTHOPEDIC CONSULTATION ---
DATE OF CONSULTATION: 03/04/2017 DATE OF CONSULTATION: 03/04/2017 This is a 51-year-old gentleman seen at the request of the department of medicine for right hip fracture. HISTORY OF PRESENT ILLNESS: This 51-year-old male that was admitted to the hospital from February 15 to March 03 and was scheduled to go to alcohol rehab, but there was no bed available until next month, so he was discharged home. The patient states that after he went home he drink approximately 3-4 cans of beer and when he woke up sleeping in the park by [facility] was walking and his legs gave up and he just fell down. He did not lose consciousness. He did not trip or fall. He did not hit his neck or head. He was then transferred to [facility] via EMS and upon radiographic examination noted to have a right intertrochanteric hip fracture. At that point he was then scheduled for admission to the hospital and consultation is made for orthopedics. PAST MEDICAL HISTORY: Alcoholism, multiple admissions for alcoholism and falling, chronic anemia, history of tobacco abuse. PAST SURGICAL HISTORY: Strabismus correction for his eye and hernia surgery as a child. ALLERGIES: PENICILLIN. MEDICATIONS: Thiamin, folate, omeprazole and nicotine patch. SOCIAL HISTORY: Smokes 3/4 of a pack of cigarettes per day. He drinks 7-8 cans of beer daily. Denies drug use. He is single, currently unemployed after [employer] closed in [facility] and he has been homeless for approximately 2 months after he lost his job. He has been sleeping in [facility] and has been unable to find a bed at the homeless half-way because they are booked through March. He has lived in [place] since he was 2 years old. He went to [employer] and he went to [employer] for a degree in Icelandic. PHYSICAL EXAMINATION: GENERAL: This is a 51-year-old gentleman who is lying supine in the hospital room bed. He is alert and oriented x3. Speech is clear and fluent. Affect is appropriate. He has difficulty hearing with normal conversational voice and he has a persistent strabismus of his eyes with a discordant gaze. Dentition is fair. Trachea is midline. No JVD. He has odor of alcohol. EXTREMITIES: Examination of the right hip demonstrates skin warm, dry and intact with slight bruising over the trochanter, tenderness to palpation over the proximal femur and right groin. Positive log roll test on the right and positive heel strike test on the right. No significant displacement or shortening of the right lower extremity compared to the left. Dorsalis pedis and posterior tib pulses 2/4 bilateral lower extremities. Limited range of motion and strength testing due to pain and guarding on the right. Radiographs demonstrate a minimally displaced right intertrochanteric hip fracture. IMPRESSIONS: 1. Right minimally displaced intertrochanteric hip fracture. 2. Alcoholism with recent fall. RECOMMENDATIONS: For open reduction internal fixation right hip fracture after medical clearance is obtained. NPO after midnight. Consent has been reviewed and signed with the patient in my presence for surgery in the morning recognizing social challenges for this particular patient. LUIS EDUARDO
[2017-03-04] MEDS: FAMOTIDINE IV INJ 20 MG in DEXTROSE 5% 100ML 100 ML IV SCH ×2 (10:52→20:31)
[2017-03-04] MEDS: THIAMINE HCL INJ 100 MG in SYRINGE 9 ML IV SCH (10:53)
[2017-03-04] MEDS: FoLIC ACID INJ 1 MG in SYRINGE 9.8 ML IV SCH (10:53)
[2017-03-04] MEDS: PANTOprazole INJ 40 MG in SYRINGE 0 ML IV SCH (10:53)
[2017-03-04] MEDS: MAGNESIUM CHLORIDE 64MG DELAYED REL TAB PO SCH (10:53)
[2017-03-04] MEDS: ACETAMINOPHEN 325 MG TAB PO PRN ×2 (10:57→18:54)
[2017-03-04] MEDS: D5W AND NSS 1,000 ML IV SCH ×2 (10:57→22:39)
[2017-03-04] MEDS: MoRPHine SULFATE 4 MG/ML 1 ML CARP\\VIAL IV PRN ×4 (14:11→23:21)
[2017-03-04 14:29] LABS: URINE APPEARANCE CLEAR (CLEAR); URINE BILIRUBIN NEG (NEG); URINE COLOR DK YELLOW; URINE NITRITE NEG (NEG); URINE PH 5.5 (4.5-7.5); URINE SPECIFIC GRAVITY 1.021 (1.000-1.030); UROBILINOGEN NEG (NEG)
[2017-03-04 14:37] LABS: MANUAL MICROSCOPIC REQUIRED? NO; REVIEW REQ? NO
[2017-03-04] MEDS: NICOTINE 14 MG/24 HR TDSY TD SCH (14:41)
[2017-03-04 14:55] VITALS: BP 109/69; PULSE 74; TEMP 35.8; O2SAT 97
[2017-03-04 22:55] VITALS: BP 144/78; PULSE 76; TEMP 37.1; O2SAT 96
[2017-03-05] VITALS (11 sets, daily range): BP systolic 105–155; BP diastolic 59–84; PULSE 70–109; TEMP 36.4–36.9; O2SAT 92–100
[2017-03-05] MEDS: MoRPHine SULFATE 4 MG/ML 1 ML CARP\\VIAL IV PRN ×5 (03:02→23:50)
[2017-03-05 06:29] LABS: BASO % 0.6 %; BASO ABS # 0.06 K/uL (0-0.2); COMPLETE YES; EOS % 8.3 %; HEMATOCRIT 30.8 % (42-52); IG% 0.7 %; LYMPH % 18.9 %; LYMPH ABS # 1.92 K/uL (1.2-3.4); MEAN CELL VOLUME 94.8 fL (80-100); MEAN CORPUSCULAR HEMOGLOBIN 31.7 pg (25-34); MEAN CORPUSCULAR HGB CONC 33.4 g/dl (32-36); MEAN PLATELET VOLUME 7.7 fL (7.4-10.4); MONO % 16.7 %; NEUT % 54.8 %; PLATELET COUNT 409 K/uL (130-400); RED BLOOD COUNT 3.25 M/uL (4.7-6.1); WHITE BLOOD COUNT 10.15 K/uL (4.8-10.8)
[2017-03-05] MEDS ORDERED: DEXAMETHASONE SOD INJ 4 MG/ML VIAL ONE (07:03)
[2017-03-05] MEDS ORDERED: PROPOFOL IV EMULSION 10 MG/ML 20 ML VIAL IV ONE (07:03)
[2017-03-05] MEDS ORDERED: LIDOCAINE HCL 2% 2 ML VIAL (20MG/ML) ONE (07:03)
[2017-03-05] MEDS ORDERED: MIDAZOLAM HCL 1 MG/ML 2ML VIAL ONE (07:03)
[2017-03-05] MEDS ORDERED: FENTANYL CITRATE INJ 50 MCG/1 ML 2 ML VIAL ONE ×3 (07:03→09:46)
[2017-03-05] MEDS ORDERED: ONDANSETRON INJ 2 MG/ML 2 ML VIAL ONE (07:03)
[2017-03-05 07:05] LABS: BUN/CREATININE RATIO 9.1 (10-20); CALCIUM 8.5 mg/dl (8.5-10.1); CREATININE 0.47 mg/dl (0.60-1.40); MAGNESIUM 1.6 mg/dl (1.8-2.4); POTASSIUM 3.9 mmol/L (3.5-5.1)
[2017-03-05] MEDS ORDERED: BUPIVACAINE 0.5 % 5 MG/1 ML MPF 30ML VIAL ONE (07:10)
--- NOTE | 2017-03-05 07:36 | History & Physical Bridge Note ---
H&P Re-Evaluation Bridge Note: I have examined the patient, reviewed the History & Physical and in the interval since the performance of the History & Physical I have noted the following changes of clinical significance: No changes noted
[2017-03-05] MEDS ORDERED: CEFAZOLIN SOD 1 GM VIAL ONE (08:12)
[2017-03-05] MEDS ORDERED: ONDANSETRON INJ 2 MG/ML 2 ML VIAL IV PRN (08:30)
[2017-03-05] MEDS ORDERED: LABETALOL HCL IV 5 MG/ML 20ML IV PRN (08:30)
[2017-03-05] MEDS ORDERED: HYDROmorphone INJ 1 MG/ML SYR IV PRN (08:30)
[2017-03-05] MEDS ORDERED: MEPERIDINE HCL 25 MG/ML CARP IV PRN (08:30)
[2017-03-05] MEDS ORDERED: ATROPINE SULFATE 0.1 MG/ML 5ML SYR IV PRN (08:30)
[2017-03-05] MEDS ORDERED: EpHEDrine SULFATE INJ 50 MG/ML AMP IV PRN (08:30)
[2017-03-05] MEDS ORDERED: GLYCOPYRROLATE INJ 0.2 MG/ML VIAL ONE (08:44)
[2017-03-05] MEDS ORDERED: EpHEDrine SULFATE 50MG/5ML SYR ONE (08:44)
[2017-03-05] MEDS ORDERED: PHENYLEPHRINE 100MCG/ML 5ML SYR ONE (08:44)
[2017-03-05] MEDS ORDERED: NEOSTIGMINE METHYLSULFATE 5 MG/5 ML SYR ONE (08:44)
--- NOTE | 2017-03-05 09:13 | DIAGNOSTIC IMAGING REPORT ---
INTRAOPERATIVE RADIOGRAPHS CLINICAL HISTORY: Open reduction and internal fixation of the right femur. Fluoroscopy time: 78 seconds. FINDINGS: 4 spot fluoroscopic views of the right femur are correlated with radiographs dated 03/04/2017. Intertrochanteric and intramedullary nails have been placed in the right femur transfixing an intertrochanteric fracture. A single cortical lag screw transfixes the intramedullary nail. The orthopedic hardware appears intact. IMPRESSION: Intraoperative images from open reduction and internal fixation of the right femur as above. Electronically signed by: Froy Lau M.D. 03/05/2017 9:11 AM Dictated Date/Time: 03/05/2017 9:11 AM
[2017-03-05] MEDS ORDERED: ACETAMINOPHEN 325 MG TAB PO PRN (09:30)
--- NOTE | 2017-03-05 09:39 | [facility] Post Operative Brief Note ---
Immediate Operative Summary Operative Date Mar 05, 2017. Pre-Operative Diagnosis Right Intertrochanteric Hip Fracture Post-Operative Diagnosis Right Intertrochanteric Hip Fracture Procedure(s) Performed ORIF Right intertrochanteric Hip Fracture Surgeon Dr. Sunny Fry Implementation Coordinator Surgeon(s) Carole Pagan PA-C Estimated Blood Loss 15mL Findings See dict Specimens none per surgeon Drains None Anesthesia GETT w/ local Complication(s) None Disposition Recovery Room / PACU
[2017-03-05] MEDS: FENTANYL CITRATE INJ 50 MCG/1 ML 2 ML VIAL IV PRN ×2 (09:46→09:51)
--- NOTE | 2017-03-05 09:56 | Anesthesiology Progress Note ---
Anesthesia Post Op Note Date & Time Mar 05, 2017 at 09:56 Vital Signs Pain Intensity: 3 Vital Signs Past 12 Hours Date Time Temp Pulse Resp B/P (MAP) Pulse Ox O2 Delivery O2 Flow Rate FiO2 03/05/17 09:55 55 16 137/73 98 Nasal Cannula 2 03/05/17 09:45 53 16 146/77 98 Nasal Cannula 2 03/05/17 09:35 65 16 167/90 100 Nasal Cannula 3 03/05/17 09:25 66 16 159/65 100 Nasal Cannula 3 03/05/17 09:15 36.5 59 16 153/81 100 Nasal Cannula 3 03/05/17 06:38 36.9 74 14 155/82 (106) 100 Room Air 03/04/17 23:21 Room Air 03/04/17 22:55 37.1 76 14 144/78 (100) 96 Room Air Notes Mental Status: alert / awake / arousable, participated in evaluation Pt Amnestic to Procedure: Yes Nausea / Vomiting: adequately controlled Pain: adequately controlled Airway Patency, RR, SpO2: stable & adequate BP & HR: stable & adequate Hydration State: stable & adequate Anesthetic Complications: no major complications apparent
--- NOTE | 2017-03-05 09:57 | DIAGNOSTIC IMAGING REPORT ---
RIGHT HIP 2 VIEWS CLINICAL HISTORY: Postoperative examination. FINDINGS: AP and crosstable lateral portable views of the right hip are compared to study dated 03/04/2017. The skeletal structures are osteopenic. There is been intertrochanteric and intramedullary nail fixation of an intertrochanteric right femoral fracture. Near-anatomic alignment is maintained. A single cortical lag screw transfixes the distal intramedullary nail. No new fracture is seen. The orthopedic hardware appears intact. Subcutaneous gas and soft tissue swelling overlying the right hip are expected postoperative findings. Skin clips are noted. IMPRESSION: Expected postoperative findings status post open reduction and internal fixation of the right femur. Electronically signed by: Froy Lau M.D. 03/05/2017 9:56 AM Dictated Date/Time: 03/05/2017 9:55 AM
[2017-03-05] MEDS: FoLIC ACID INJ 1 MG in SYRINGE 9.8 ML IV SCH (10:25)
[2017-03-05] MEDS: THIAMINE HCL INJ 100 MG in SYRINGE 9 ML IV SCH (10:26)
[2017-03-05] MEDS: MAGNESIUM CHLORIDE 64MG DELAYED REL TAB PO SCH (10:26)
[2017-03-05] MEDS: PANTOprazole INJ 40 MG in SYRINGE 0 ML IV SCH (10:26)
[2017-03-05] MEDS: FAMOTIDINE IV INJ 20 MG in DEXTROSE 5% 100ML 100 ML IV SCH ×2 (10:27→20:11)
[2017-03-05] MEDS: NICOTINE 14 MG/24 HR TDSY TD SCH (10:27)
--- NOTE | 2017-03-05 11:16 | OPERATIVE REPORT ---
DATE OF OPERATION: 03/05/2017 PREOPERATIVE DIAGNOSIS: Right intertrochanteric hip fracture. POSTOPERATIVE DIAGNOSIS: Right intertrochanteric hip fracture. PROCEDURE: Open reduction and internal fixation of right intertrochanteric hip fracture. SURGEON: Dr. Jovanny Fry. DESIGN RELEASE ENGINEER: Phoenix Pagan PA-C, who was present for patient positioning, sterile prep and drape, management of retractors and instruments. He was present through the critical portions of the case including wound closure, application of sterile dressing and transport of the patient to recovery. ANESTHESIA: General endotracheal tube with local. SPECIMENS: None. DRAINS: None. COMPLICATIONS: None. BLOOD LOSS: 15 mL. PERTINENT HISTORY: This is a 51-year-old gentleman who had sustained a fall after he felt that his legs were giving out on him. He fell on his right hip. He had difficulty ambulating and transferred to [facility] via EMS, where he was evaluated and radiographed. The patient was noted to have an intertrochanteric right hip fracture, was admitted to the hospital, optimized for surgery and then scheduled for surgery as indicated. All potential risks, benefits, complications, alternatives, rehab, potential for incomplete relief of symptoms, need for further surgery, DVT, PE, , persistent pain, swelling, scarring, weakness, neurovascular injury, wound complications, hardware failure, bone fracture, nonunion, and malunion were discussed with the patient and the patient decided to proceed with procedure as indicated. DESCRIPTION OF PROCEDURE: The patient was transferred to the operative suite. The proper site was identified. The consent was reviewed, the patient was then administered sedation and spinal anesthetic. Once appropriate, the patient then transferred to the fracture table where the lower extremity was placed in fracture table traction and the nonoperative leg was placed in the well leg arce. All bony prominences were properly padded and protected. The padded post was placed in the peroneal and the patient was positioned appropriately. Next the left leg was placed on traction and reduction of the fracture was performed under fluoroscopic control. Next the operative hip was then sterilely prepped and draped in the usual fashion. Next a 10-blade scalpel incision was used to make an incision proximal to the greater trochanter. The incision was deep in the subcutaneous tissue and fascia and the tip of the greater trochanter was then palpated followed by placement of a guide pin under fluoroscopic control driven into the greater trochanter down to the level of the less trochanter. This was confirmed in AP and lateral projections followed by placement of the proximal reamer over the cannulated guide pin. Next the reamer was then removed using the soft tissue protector, which was also removed. Next the ball tip guide anastasiia was placed into the proximal femur under fluoroscopic control confirmed with AP and lateral fluoroscope projections. Next the trochanteric nail was then passed over the guide anastasiia into the femur, the guide anastasiia was removed and then under fluoroscopic control appropriate level of the femoral nail was then placed in AP projections. Next the targeting device was then fixed to the driving handle and 10-blade scalpel incision was made in the lateral aspect of the thigh. Next the tissue protector and cannulated guide system was then passed into the soft tissue until it was securely fixed against a lateral aspect of the femoral cortex. This was also confirmed under C-arm. Next the guide pin for the spiral blade was driven into the lateral aspect of the femur confirming this with AP lateral projections until the guide pin was in the center of the femoral neck and head approximately 5 mm from the subcortical bone of the femur. Next the spiral blade was then measured and then the lateral cortex was then drilled with the cortex reamer followed by use of the triple reamer with the depth stop set at appropriate depth. In this case a 95-mm spiral blade was then inserted over the cannulated guide anastasiia under fluoroscopic control. This was seated appropriately then traction was reduced from the limb and the fracture was then gently compressed and then locked proximally with the flexible screwdriver. Next the spiral blade was then disengaged from its insertion handle, insertion handle was then removed and the guide pin was removed from the femoral neck and head. Next the lateral targeting arm was used to insert the distal locking screw. First a 10-blade scalpel incision was made in the lateral aspect of the thigh, captured drill sleeves were then tamped gently to the lateral aspect of the femoral cortex then the locking screw hole was then drilled, measured and then an appropriate length screw was placed to lock the distal aspect of the nail. Next targeting sleeves were then removed. The insertion arm was then removed from the nail and final x-rays were obtained in AP and lateral projections. All incisions were then copiously irrigated with sterile normal saline. The proximal gluteus fascia was then closed using interrupted #1 Vicryl, the dermis was closed using buried interrupted 2-0 Vicryl sutures in all three incisions and the skin was then closed using skin geovanna. A sterile compressive dressing consisting of Xeroform gauze, sterile 4 x 4's and Tegaderm was applied. The patient was then awakened and taken to recovery in stable condition. I attest to the content of the Intraoperative Record and any orders documented therein. Any exception s are noted below.
[2017-03-05] MEDS: D5W AND NSS 1,000 ML IV SCH (11:53)
[2017-03-05] MEDS: OXYCODONE HCL IR 5 MG TAB (IMMEDIATE RELEASE) PO PRN ×2 (15:29→22:08)
--- NOTE | 2017-03-05 16:52 | Progress Note ---
Internal Med Progress Note Date of Service: Mar 05, 2017. Provider Documentation: SUBJECTIVE: s/p right hip surgery today tolerated procedure ok has some pain eating breakfast denies chest pain or sob or nausea afebrile OBJECTIVE: Vital Signs-as noted below Exam: General-alert and awake. Not in distress ENT-normal hearing Neck-no neck masses Lungs-cta b/l no wheezing or crackles Heart-s1 and s2 heard regular rhythm no murmurs Abdomen-soft bowel sounds present non tender no distension Extremities-s/p right hip surgery. no erythema Neuro-alert and oriented moves extremities Lab data as noted below. ASSESSMENT & PLAN: This is a 51-year-old male who presents with right hip fracture. 1. Right hip fracture. Patient has history of alcohol abuse, supposed to go to alcohol rehab. Could not find a place until next month, was discharged 03/03/17. Went home and as per patient drank 3-4 beers and next day morning was walking, suddenly fell down and had broken right hip fracture. Seen by ortho s/p surgery today pt/ot pain control. 2. Alcoholism. alcohol level 49. On thiamine, folic acid, multivitamins. Once recovered from right hip fracture the patient may need alcohol rehab. 3. Gastroesophageal reflux disease. Continue PPI. 4. Tobacco abuse. Nicotine patch. 5 DVT prophylaxis. Lovenox 5. Disposition. Monitor in medical floor. Expect to discharge to rehab. Social service for d/c planning Vital Signs: Date Time Temp Pulse Resp B/P (MAP) Pulse Ox O2 Delivery O2 Flow Rate FiO2 03/05/17 15:15 36.4 81 18 135/70 (91) 97 Room Air 03/05/17 13:15 72 16 117/72 (87) 97 Room Air 03/05/17 12:13 71 16 105/65 (78) 96 Room Air 03/05/17 11:17 109 16 138/79 (98) 96 Room Air 03/05/17 11:15 98 20 115/59 (77) 92 Room Air 03/05/17 10:47 98 16 149/84 (105) 98 Room Air 03/05/17 10:15 99 Room Air Nasal Cannula 03/05/17 10:15 99 Room Air 03/05/17 10:15 70 18 146/76 (99) 99 Room Air 03/05/17 10:05 36.4 56 16 139/74 100 Nasal Cannula 2 03/05/17 09:55 55 16 137/73 98 Nasal Cannula 2 03/05/17 09:45 53 16 146/77 98 Nasal Cannula 2 03/05/17 09:35 65 16 167/90 100 Nasal Cannula 3 03/05/17 09:25 66 16 159/65 100 Nasal Cannula 3 03/05/17 09:15 36.5 59 16 153/81 100 Nasal Cannula 3 03/05/17 06:38 36.9 74 14 155/82 (106) 100 Room Air 03/04/17 23:21 Room Air 03/04/17 22:55 37.1 76 14 144/78 (100) 96 Room Air Lab Results: Results Past 24 Hours Test 03/05/17 06:13 Range/Units White Blood Count 10.15 4.8-10.8 K/uL Red Blood Count 3.25 4.7-6.1 M/uL Hemoglobin 10.3 14.0-18.0 g/dL Hematocrit 30.8 42-52 % Mean Corpuscular Volume 94.8 80-100 fL Mean Corpuscular Hemoglobin 31.7 25-34 pg Mean Corpuscular Hemoglobin Concent 33.4 32-36 g/dl Platelet Count 409 130-400 K/uL Mean Platelet Volume 7.7 7.4-10.4 fL Neutrophils (%) (Auto) 54.8 % Lymphocytes (%) (Auto) 18.9 % Monocytes (%) (Auto) 16.7 % Eosinophils (%) (Auto) 8.3 % Basophils (%) (Auto) 0.6 % Neutrophils # (Auto) 5.56 1.4-6.5 K/uL Lymphocytes # (Auto) 1.92 1.2-3.4 K/uL Monocytes # (Auto) 1.70 0.11-0.59 K/uL Eosinophils # (Auto) 0.84 0-0.5 K/uL Basophils # (Auto) 0.06 0-0.2 K/uL RDW Standard Deviation 48.0 36.4-46.3 fL RDW Coefficient of Variation 13.7 11.5-14.5 % Immature Granulocyte % (Auto) 0.7 % Immature Granulocyte # (Auto) 0.07 0.00-0.02 K/uL Sodium Level 133 136-145 mmol/L Potassium Level 3.9 3.5-5.1 mmol/L Chloride Level 99 98-107 mmol/L Carbon Dioxide Level 29 21-32 mmol/L Anion Gap 5.0 3-11 mmol/L Blood Urea Nitrogen 4 7-18 mg/dl Creatinine 0.47 0.60-1.40 mg/dl Est Creatinine Clear Calc Drug Dose 144.3 ml/min Estimated GFR () 148.1 Estimated GFR (Non- 127.8 BUN/Creatinine Ratio 9.1 10-20 Random Glucose 86 70-99 mg/dl Calcium Level 8.5 8.5-10.1 mg/dl Magnesium Level 1.6 1.8-2.4 mg/dl
[2017-03-05] MEDS ORDERED: ENOXAPARIN 30 MG/0.3 ML SYR SQ ONE (17:00)
--- NOTE | 2017-03-05 17:49 | EMERGENCY ROOM VISIT NOTE ---
History First contact with patient: 07:11 Chief Complaint: HIP PAIN Stated Complaint: FALL / HIP PAIN History of Present Illness The patient is a 51 year old white male who presents to the Emergency Room with complaints of right hip pain after falling this morning. Patient states he was sleeping downtown and lost his balance when he got up this morning. He fell onto concrete. He is evasive when asked where he was sleeping. He is known to be homeless. Patient states he was unable to ambulate. No prior history of significant hip pain. No symptoms on the left. He denies striking his head. He denies any chest pain or shortness of breath at the time of the fall. He is unsure exactly what made him fall. He states he was not drinking alcohol this morning. He had several beers last night around 10 PM. He denies eating or drinking anything this morning. No other complaints. He arrives by BLS ambulance from [place]. He is very well known to the ED and hospitalist service. He has been in the hospital for the last 3-1/2 weeks for hyponatremia and alcohol abuse. Review of Systems REVIEW OF SYSTEM: HEENT: No dizziness, visual problems, or tinnitus. There is no difficulty swallowing and no oral lesions are present. PULMONARY: No cough, sputum production or hemoptysis. CARDIOVASCULAR: No chest pain, palpitations, or peripheral edema. GASTROINTESTINAL: No diarrhea, constipation, nausea, vomiting, or abdominal pain. GENITOURINARY: No dysuria, frequency, urgency or nocturia. NEUROLOGIC: No muscle tenderness, epilepsy or history of neurological problems. No history of chronic headaches. MUSCULOSKELETAL: No history of joint tenderness/swelling. No history of arthritis or arthralgias. SKIN: No rashes or lesions. PSYCHIATRIC: Positive history of alcohol dependence. ENDOCRINE: No history of diabetes, thyroid disorders, or abnormal hair growth. Past Medical/Surgical History Medical Problems: (1) Alcoh Dep Nec/Nos-Unspec (2) Chest pain (3) Fever (4) Fracture Calcaneus-Close (5) Hip fracture (6) Hypertension Nos (7) Hyponatremia (8) Hypoxia (9) Pleural effusion (10) Sprain Of Ankle Nos Social History Problems: (1) Alcohol abuse Family History FHx: cancer Social History Smoking Status: Current Every Day Smoker Smokeless Tobacco Use: No Alcohol Use: heavy Drug Use: none Marital Status: single Housing Status: other (homeless) Occupation Status: unemployed Current/Historical Medications Scheduled Folic Acid (Folic Acid), 1 MG PO DAILY Magnesium Chloride (Slow-Mag Tab), 64 MG PO QAM Nicotine (Nicoderm Cq), 1 PATCH TD QAM Omeprazole (Prilosec), 1 CAP PO DAILY Thiamine HCl (Vitamin B-1), 100 MG PO Q24H Physical Exam Vital Signs Date Time Temp Pulse Resp B/P (MAP) Pulse Ox O2 Delivery O2 Flow Rate FiO2 03/04/17 08:35 98 Room Air 03/04/17 08:14 79 117/81 98 03/04/17 07:11 36.4 95 24 123/77 93 Room Air Pain Rating (0-10): 0 Physical Exam Gen.: Well-developed, thin, middle-aged white male, in no acute distress. Obvious discomfort. Laying on a bed. Alert and oriented. Smells of alcohol. Appears to be hard of hearing. Overall poor hygiene. Skin:Warm and dry with good turgor. No rashes or lesions. No ecchymosis or erythema. The patient is not diaphoretic. Minor abrasions present on his left shoulder. HEENT: Normocephalic atraumatic. Eyes PERRLA, EOMI. No conjunctiva or scleral injection. Nares patent bilaterally without turbinate enlargement. No significant drainage. No epistaxis. Oropharynx without erythema or exudate. Uvula midline, oral mucosa moist. No lesions present. Very poor dentition. He has significant difficulty with hearing. Heart: Heart RRR. No MGR. Peripheral pulses are 2+. Lungs: Lungs are clear to auscultation. Bibasilar crackles. No rhonchi or wheezing. Fair air movement. The patient is able to take a deep breath. Abdomen: Abdomen was inspected, auscultated, and palpated. Bowel sounds present x 4. Soft, nontender to palpation. No hepato-splenomegaly. No masses noted. No rebound. No CVA tenderness. Musculoskeletal: Gross motor function is intact to both upper extremities and his left lower extremity. He has intact motor function to his ankle and toes. He has significant right hip pain with any attempted internal or external rotation, as well as flexion. Because of this, no significant range was attempted. He has focal discomfort with palpation over his greater trochanter. No pain with palpation over the midshaft or distal femur. No pain with palpation over his knee or lower leg. There is no visible shortening or external rotation deformity to the right leg. Neurologic: Gross sensation is intact across the lower extremities by soft touch. Medical Decision & Procedures ER Provider Diagnostic Interpretation: Radiographic imaging obtained today of the right hip and pelvis shows a nondisplaced intertrochanteric fracture of the right hip. Films were reviewed by me and read by radiology. Preoperative chest x-ray was obtained as well. This was read by radiology as No acute cardiopulmonary findings. Numerous old bilateral rib fractures and an age indeterminate posterior right 10th rib fracture. No pneumothorax. Laboratory Results Test 03/04/17 00:00 03/04/17 07:47 03/04/17 08:00 Nucleated RBC Absolute Count (auto) 0.00 K/uL (0-0) Nucleated Red Blood Cells % 0.0 % Total Bilirubin 0.2 mg/dl (0.2-1) Aspartate Amino Transf (AST/SGOT) 44 U/L (15-37) Alanine Aminotransferase (ALT/SGPT) 45 U/L (12-78) Alkaline Phosphatase 87 U/L (45-117) Total Protein 7.5 gm/dl (6.4-8.2) Albumin 3.4 gm/dl (3.4-5.0) Globulin 4.1 gm/dl (2.5-4.0) Albumin/Globulin Ratio 0.8 (0.9-2) Ethyl Alcohol mg/dL 49.0 mg/dl (0-3) Prothrombin Time 10.5 SECONDS (9.0-12.0) Prothromb Time International Ratio 1.0 (0.9-1.1) Activated Partial Thromboplast Time 25.4 SECONDS (21.0-31.0) Partial Thromboplastin Ratio 1.0 EKG obtained today shows CBC, PRP, and PT/INR were also obtained. PRP and PT/INR are unremarkable. CBC shows elevated WBCs at 15. Alcohol level at this time is 49. Medications Administered Medications (Trade) Dose Ordered Sig/Jaylene Route Start Time Stop Time Status Last Admin Dose Admin Morphine Sulfate (MoRPHine SULFATE INJ) 4 mg NOW STAT IV 03/04/17 08:04 03/04/17 08:05 DC 03/04/17 08:11 4 MG Ondansetron HCl (Zofran Inj) 4 mg NOW STAT IV 03/04/17 08:04 03/04/17 08:05 DC 03/04/17 08:11 4 MG Acetaminophen (Tylenol Tab) 650 mg Q4H PRN PO 03/04/17 09:00 03/05/17 09:45 DC 03/04/17 18:54 650 MG Magnesium Chloride (Slow-Mag Tab) 64 mg QAM PO 03/04/17 09:00 04/03/17 08:59 03/05/17 10:26 64 MG Thiamine HCl 100 mg/Syringe 10 ml @ 2 mls/min QAM IV 03/04/17 09:00 04/03/17 08:59 03/05/17 10:26 2 MLS/MIN Folic Acid 1 mg/ Syringe 10 ml @ 5 mls/min QAM IV 03/04/17 09:00 04/03/17 08:59 03/05/17 10:25 5 MLS/MIN Dextrose/Sodium Chloride 1,000 ml @ 75 mls/hr [id number] IV 03/04/17 09:00 04/03/17 08:59 03/05/17 11:53 75 MLS/HR Morphine 4 mg IV, Zofran 4 mg IV ED Course Patient was educated regarding today's findings. Conservative care measures were discussed. IV was established. Labs were obtained. X-ray of the right hip and pelvis was obtained. He was found to have a nondisplaced intertrochanteric fracture. Because of this, preoperative labs and chest x-ray were obtained. He was given morphine 4 mg IV and Zofran 4 mg IV for his discomfort. I did consult Dr. Fry. He did review the films and agreed that surgical intervention was necessary. He recommended admission by the hospitalist with consultation of orthopedics. I did speak with the hospitalist to have the patient admitted. Please see that dictation for final management. Patient remained stable while in the department. Medical Decision Possibility of hip fracture, femur fracture, pelvic fracture, contusion, trochanteric bursitis, muscle strain were considered among others. [place] Drug Monitoring Program Search Results: patient reviewed within database Medication Reconcilliation Current Medication List: was personally reviewed by me Blood Pressure Screening Patient's blood pressure: Normal blood pressure Impression Primary Impression: Intertrochanteric fracture of right hip Departure Information Referrals No Doctor, Assigned (PCP) Patient Instructions My [facility] Problem Qualifiers Primary Impression: Intertrochanteric fracture of right hip Encounter type: initial encounter Fracture type: closed Fracture alignment : nondisplaced Qualified Codes: S72.144A - Nondisplaced intertrochanteric fracture of right femur, initial encounter for closed fracture
[2017-03-05] MEDS: CEFAZOLIN IV 1,000 MG in DEXTROSE 5% 50ML 50 ML IV SCH ×2 (17:55→23:50)
[2017-03-05] MEDS: DOCUSATE SODIUM/SENNA 50/8.6MG TAB PO SCH (21:09)
[2017-03-05] MEDS: ASPIRIN/ALUM/MAGNES/CAL CARB 325 MG TAB PO SCH (21:09)
[2017-03-06] MEDS ORDERED: RISP0.5T10 PO (01:29)
[2017-03-06] MEDS ORDERED: RIVASTIGMINE TOP (01:31)
[2017-03-06] MEDS ORDERED: IMD/2 PO (01:32)
[2017-03-06] MEDS ORDERED: LEVO50TA6 PO (01:33)
[2017-03-06] MEDS ORDERED: RISE150T PO (01:33)
[2017-03-06] MEDS ORDERED: FERR1TAB13 PO (01:34)
[2017-03-06] MEDS ORDERED: SIMV10TA2 PO (01:34)
[2017-03-06] MEDS ORDERED: [UNRECOGNIZED DRUG - CODE] (01:35)
[2017-03-06] MEDS: D5W AND NSS 1,000 ML IV SCH ×2 (01:37→14:28)
[2017-03-06] MEDS ORDERED: ACET-1256 PO (01:40)
[2017-03-06 03:04] VITALS: BP 142/79; PULSE 67; TEMP 36.9; O2SAT 97
[2017-03-06 05:35] LABS: BASO % 0.3 %; BASO ABS # 0.04 K/uL (0-0.2); EOS % 0.1 %; IG% 0.4 %; LYMPH % 10.4 %; LYMPH ABS # 1.48 K/uL (1.2-3.4); MEAN CELL VOLUME 94.3 fL (80-100); MEAN CORPUSCULAR HEMOGLOBIN 32.5 pg (25-34); MEAN CORPUSCULAR HGB CONC 34.4 g/dl (32-36); MEAN PLATELET VOLUME 8.3 fL (7.4-10.4); NEUT % 74.8 %; PLATELET COUNT 360 K/uL (130-400); RED BLOOD COUNT 2.65 M/uL (4.7-6.1); WHITE BLOOD COUNT 14.18 K/uL (4.8-10.8)
[2017-03-06 06:05] LABS: BLOOD UREA NITROGEN 8 mg/dl (7-18); CALCIUM 8.4 mg/dl (8.5-10.1); CARBON DIOXIDE 27 mmol/L (21-32); CHLORIDE 100 mmol/L (98-107); CREATININE 0.43 mg/dl (0.60-1.40); GLUCOSE 112 mg/dl (70-99); MAGNESIUM 1.8 mg/dl (1.8-2.4); POTASSIUM 3.9 mmol/L (3.5-5.1); SODIUM 132 mmol/L (136-145)
[2017-03-06 06:27] LABS: COMPLETE YES
[2017-03-06 07:43] VITALS: BP 155/89; PULSE 67; TEMP 36.7; O2SAT 97
--- NOTE | 2017-03-06 07:56 | Orthopedic Progress Note ---
Orthopedic Progress Note Date of Service Mar 06, 2017. Subjective Post OP Day: 1 Reports: feeling well, Denies: chest pain, SOB, nausea / vomiting, light headedness, calf pain Additional Notes: PATIENT VERY HARD OF HEARING, BUT RESPONDS APPROPRIATELY. STATES PAIN IS CONTROLLED AT REST. Objective calves soft nontender, N/V intact, hip located, dressing C/D/I, A&O x3, toes mobile Date Time Temp Pulse Resp B/P (MAP) Pulse Ox O2 Delivery O2 Flow Rate FiO2 03/06/17 07:43 36.7 67 17 155/89 (111) 97 Room Air 03/06/17 03:04 36.9 67 14 142/79 (100) 97 Room Air 03/05/17 23:50 Room Air 03/05/17 22:55 36.9 85 14 145/83 (103) 98 Room Air 03/05/17 19:31 36.7 78 18 116/69 (85) 95 Room Air 03/05/17 16:30 97 Room Air 03/05/17 15:15 36.4 81 18 135/70 (91) 97 Room Air 03/05/17 13:15 72 16 117/72 (87) 97 Room Air 03/05/17 12:13 71 16 105/65 (78) 96 Room Air 03/05/17 11:17 109 16 138/79 (98) 96 Room Air 03/05/17 11:15 98 20 115/59 (77) 92 Room Air 03/05/17 10:47 98 16 149/84 (105) 98 Room Air 03/05/17 10:15 99 Room Air Nasal Cannula 03/05/17 10:15 99 Room Air 03/05/17 10:15 70 18 146/76 (99) 99 Room Air 03/05/17 10:05 36.4 56 16 139/74 100 Nasal Cannula 2 03/05/17 09:55 55 16 137/73 98 Nasal Cannula 2 03/05/17 09:45 53 16 146/77 98 Nasal Cannula 2 03/05/17 09:35 65 16 167/90 100 Nasal Cannula 3 03/05/17 09:25 66 16 159/65 100 Nasal Cannula 3 03/05/17 09:15 36.5 59 16 153/81 100 Nasal Cannula 3 Laboratory Results 24 Hours: Test 03/06/17 05:02 White Blood Count 14.18 K/uL Red Blood Count 2.65 M/uL Hemoglobin 8.6 g/dL Hematocrit 25.0 % Mean Corpuscular Volume 94.3 fL Mean Corpuscular Hemoglobin 32.5 pg Mean Corpuscular Hemoglobin Concent 34.4 g/dl Platelet Count 360 K/uL Mean Platelet Volume 8.3 fL Neutrophils (%) (Auto) 74.8 % Lymphocytes (%) (Auto) 10.4 % Monocytes (%) (Auto) 14.0 % Eosinophils (%) (Auto) 0.1 % Basophils (%) (Auto) 0.3 % Neutrophils # (Auto) 10.60 K/uL Lymphocytes # (Auto) 1.48 K/uL Monocytes # (Auto) 1.98 K/uL Eosinophils # (Auto) 0.02 K/uL Basophils # (Auto) 0.04 K/uL Assessment & Plan Assessment: POD#1 SP RIGHT TROCH NAIL Inhouse Planning Pain Management: PO Tylenol, Oxy IR DVT Prophylaxis: TEDs, SCDs, Lovenox Discharge Planning Discharge Planning: rehab hospital (WILL NEED TO DISCUSS OPTIONS WITH CM.)
[2017-03-06] MEDS: ASPIRIN/ALUM/MAGNES/CAL CARB 325 MG TAB PO SCH ×2 (08:23→21:32)
[2017-03-06] MEDS: MAGNESIUM CHLORIDE 64MG DELAYED REL TAB PO SCH (08:25)
[2017-03-06] MEDS: NICOTINE 14 MG/24 HR TDSY TD SCH (08:25)
[2017-03-06] MEDS: ENOXAPARIN 40 MG/0.4 ML SYR SQ SCH (08:26)
[2017-03-06] MEDS: THIAMINE HCL INJ 100 MG in SYRINGE 9 ML IV SCH (08:26)
[2017-03-06] MEDS: FoLIC ACID INJ 1 MG in SYRINGE 9.8 ML IV SCH (08:26)
[2017-03-06] MEDS: FAMOTIDINE IV INJ 20 MG in DEXTROSE 5% 100ML 100 ML IV SCH ×2 (08:30→21:31)
[2017-03-06] MEDS: OXYCODONE HCL IR 5 MG TAB (IMMEDIATE RELEASE) PO PRN ×4 (08:31→22:25)
[2017-03-06] MEDS: PANTOprazole INJ 40 MG in SYRINGE 0 ML IV SCH (12:04)
[2017-03-06 15:17] VITALS: BP 150/81; PULSE 79; TEMP 36.6; O2SAT 98
[2017-03-06] MEDS ORDERED: NURSING VERBAL MED ORDER ONE (18:30)
--- NOTE | 2017-03-06 20:28 | Progress Note ---
Medicine Progress Note Date & Time of Visit: Mar 06, 2017 at 16:50 . Subjective Having some postoperative pain. No fever. No chest pain. No cough or shortness of breath. No nausea or vomiting. . Objective Last 8 Hrs Date Time Temp Pulse Resp B/P (MAP) Pulse Ox O2 Delivery O2 Flow Rate FiO2 03/06/17 15:20 Room Air 03/06/17 15:17 36.6 79 16 150/81 (104) 98 Room Air Physical Exam: General- no distress Eyes- anicteric ENT- hard of hearing Lungs- clear Heart- regular Abdomen- normal bowel sounds, soft, nontender Extremities- no pretibial edema or calf tenderness Neuro- alert . Laboratory Results: Last 24 Hours Test 03/06/17 05:02 White Blood Count 14.18 K/uL Red Blood Count 2.65 M/uL Hemoglobin 8.6 g/dL Hematocrit 25.0 % Mean Corpuscular Volume 94.3 fL Mean Corpuscular Hemoglobin 32.5 pg Mean Corpuscular Hemoglobin Concent 34.4 g/dl Platelet Count 360 K/uL Mean Platelet Volume 8.3 fL Neutrophils (%) (Auto) 74.8 % Lymphocytes (%) (Auto) 10.4 % Monocytes (%) (Auto) 14.0 % Eosinophils (%) (Auto) 0.1 % Basophils (%) (Auto) 0.3 % Neutrophils # (Auto) 10.60 K/uL Lymphocytes # (Auto) 1.48 K/uL Monocytes # (Auto) 1.98 K/uL Eosinophils # (Auto) 0.02 K/uL Basophils # (Auto) 0.04 K/uL RDW Standard Deviation 47.0 fL RDW Coefficient of Variation 13.6 % Immature Granulocyte % (Auto) 0.4 % Immature Granulocyte # (Auto) 0.06 K/uL Red Blood Cell Morphology Unremarkable Sodium Level 132 mmol/L Potassium Level 3.9 mmol/L Chloride Level 100 mmol/L Carbon Dioxide Level 27 mmol/L Anion Gap 5.0 mmol/L Blood Urea Nitrogen 8 mg/dl Creatinine 0.43 mg/dl Est Creatinine Clear Calc Drug Dose 157.8 ml/min Estimated GFR () > 150.0 Estimated GFR (Non- 132.6 BUN/Creatinine Ratio 18.0 Random Glucose 112 mg/dl Calcium Level 8.4 mg/dl Magnesium Level 1.8 mg/dl Assessment & Plan RIGHT INTERTROCHANTERIC HIP FRACTURE S/P ORIF. Doing well postop. ANEMIA Hgb 12.4 --> 8.6. Probable acute blood loss anemia secondary to a fracture. LEUKOCYTOSIS No fever or specific sign suggesting of infection. Leukocytosis probably secondary to hip fracture/associated hematoma. Follow. HYPONATREMIA Serum sodium stable at 132. Follow. ALCOHOLISM Relapse when discharged on 03/03/17. Continue thiamine. Ongoing counseling/support. GERD Continue PPI. VTE PROPHYLAXIS SQ enoxaparin. DISPOSITION Anticipated need for inpatient rehabilitation for skilled care. Case Management consulted. Needs to establish with PCP for ongoing medical care. . Current Inpatient Medications: Current Inpatient Medications Medications (Trade) Dose Ordered Sig/Jaylene Route Start Time Stop Time Status Last Admin Dose Admin Al Hydrox/Mg Hydrox/Simethicone (Maalox Max Susp) 15 ml Q4H PRN PO 03/04/17 09:00 04/03/17 08:59 Magnesium Hydroxide (Milk Of Magnesia Susp) 30 ml Q6H PRN PO 03/04/17 09:00 04/03/17 08:59 Ondansetron HCl (Zofran Inj) 4 mg Q6H PRN IV 03/04/17 09:00 04/03/17 08:59 Magnesium Chloride (Slow-Mag Tab) 64 mg QAM PO 03/04/17 09:00 04/03/17 08:59 03/06/17 08:25 64 MG Miscellaneous (Remove Nicoderm Patch) 1 ea HS N/A 03/04/17 21:00 04/03/17 20:59 03/05/17 21:10 1 EA Pantoprazole Sodium 40 mg/ Syringe 10 ml @ 5 mls/min DAILY@11 IV 03/04/17 11:00 04/03/17 10:59 03/06/17 12:04 5 MLS/MIN Thiamine HCl 100 mg/Syringe 10 ml @ 2 mls/min QAM IV 03/04/17 09:00 04/03/17 08:59 03/06/17 08:26 2 MLS/MIN Folic Acid 1 mg/ Syringe 10 ml @ 5 mls/min QAM IV 03/04/17 09:00 04/03/17 08:59 03/06/17 08:26 5 MLS/MIN Famotidine 20 mg/ Dextrose 102 ml @ 200 mls/hr Q12 IV 03/04/17 09:45 04/03/17 09:44 03/06/17 08:30 200 MLS/HR Nicotine (Nicoderm Cq 14MG Patch) 1 patch QAM TD 03/05/17 09:00 04/04/17 08:59 03/06/17 08:25 1 PATCH Morphine Sulfate (MoRPHine SULFATE INJ) 4 mg Q3HWA PRN IV 03/04/17 10:15 03/18/17 10:14 03/05/17 23:50 4 MG Acetaminophen (Tylenol Tab) 650 mg Q6H PRN PO 03/05/17 09:30 04/04/17 09:29 03/05/17 14:36 650 MG Aspirin/Aluminum/ Magnesium/Ca Carb (Ascriptin Tab) 325 mg BID PO 03/05/17 21:00 04/04/17 20:59 03/06/17 08:23 325 MG Senna/Docusate Sodium (Senokot S Tab) 2 tab HS PO 03/05/17 21:00 04/04/17 20:59 03/05/17 21:09 2 TAB Polyethylene (Miralax Powder Packet) 17 gm Q6 PO 03/07/17 06:00 04/06/17 05:59 Oxycodone HCl (Roxicodone Immediate Rel Tab) Give 5-10mg PO Q4H ... Q4 PRN PO 03/05/17 11:00 03/19/17 10:59 03/06/17 18:22 10 MG Enoxaparin Sodium (Lovenox Inj) 40 mg QAM SQ 03/06/17 09:00 04/05/17 08:59 03/06/17 08:26 40 MG
[2017-03-06] MEDS: MoRPHine SULFATE 4 MG/ML 1 ML CARP\\VIAL IV PRN (20:38)
[2017-03-06] MEDS: DOCUSATE SODIUM/SENNA 50/8.6MG TAB PO SCH (21:31)
[2017-03-06 22:49] VITALS: BP 142/82; PULSE 78; TEMP 37; O2SAT 96
[2017-03-07] MEDS ORDERED: NURSING VERBAL MED ORDER ONE (04:00)
[2017-03-07 04:05] VITALS: BP 138/95; PULSE 97; TEMP 36.6; O2SAT 96
[2017-03-07] MEDS ORDERED: POLYETHYLENE (MIRALAX) 17 GM PACK PO SCH (06:00)
[2017-03-07 06:17] LABS: BASO % 0.3 %; BASO ABS # 0.04 K/uL (0-0.2); COMPLETE YES; EOS % 5.1 %; HEMATOCRIT 26.3 % (42-52); IG% 0.7 %; LYMPH % 14.6 %; MEAN CORPUSCULAR HEMOGLOBIN 32.8 pg (25-34); MEAN CORPUSCULAR HGB CONC 34.2 g/dl (32-36); MEAN PLATELET VOLUME 8.3 fL (7.4-10.4); MONO % 15.7 %; NEUT % 63.6 %; PLATELET COUNT 362 K/uL (130-400); RED BLOOD COUNT 2.74 M/uL (4.7-6.1); WHITE BLOOD COUNT 13.66 K/uL (4.8-10.8)
[2017-03-07 06:41] VITALS: BP 120/71; PULSE 58; TEMP 36.6; O2SAT 96
[2017-03-07 06:53] LABS: BLOOD UREA NITROGEN 9 mg/dl (7-18); BUN/CREATININE RATIO 20.2 (10-20); CALCIUM 8.6 mg/dl (8.5-10.1); CARBON DIOXIDE 30 mmol/L (21-32); CHLORIDE 97 mmol/L (98-107); CREATININE 0.43 mg/dl (0.60-1.40); GLUCOSE 78 mg/dl (70-99); MAGNESIUM 1.8 mg/dl (1.8-2.4); SODIUM 133 mmol/L (136-145)
[2017-03-07] MEDS: ENOXAPARIN 40 MG/0.4 ML SYR SQ SCH (07:36)
[2017-03-07] MEDS: NICOTINE 14 MG/24 HR TDSY TD SCH (07:36)
[2017-03-07] MEDS: ASPIRIN/ALUM/MAGNES/CAL CARB 325 MG TAB PO SCH ×2 (07:36→20:54)
[2017-03-07] MEDS: FAMOTIDINE IV INJ 20 MG in DEXTROSE 5% 100ML 100 ML IV SCH ×2 (07:39→20:54)
[2017-03-07] MEDS: THIAMINE HCL INJ 100 MG in SYRINGE 9 ML IV SCH (07:40)
[2017-03-07] MEDS: MAGNESIUM CHLORIDE 64MG DELAYED REL TAB PO SCH (07:40)
[2017-03-07] MEDS: FoLIC ACID INJ 1 MG in SYRINGE 9.8 ML IV SCH (07:40)
[2017-03-07] MEDS: OXYCODONE HCL IR 5 MG TAB (IMMEDIATE RELEASE) PO PRN ×3 (08:38→19:04)
[2017-03-07 08:39] VITALS: BP 110/72; PULSE 100; TEMP 36.9; O2SAT 98
[2017-03-07 08:54] VITALS: O2SAT 99
[2017-03-07] MEDS ORDERED: PANTOprazole SOD 40 MG TAB PO ONE (09:46)
[2017-03-07] MEDS ORDERED: DOCUSATE SODIUM/SENNA 50/8.6MG TAB PO ONE (09:46)
--- NOTE | 2017-03-07 09:57 | Orthopedic Progress Note ---
Orthopedic Progress Note Date of Service Mar 07, 2017. Subjective Post OP Day: 2 Reports: feeling well, Denies: chest pain, SOB, nausea / vomiting, light headedness, calf pain Objective calves soft nontender, N/V intact, hip located, dressing C/D/I, A&O x3, toes mobile Date Time Temp Pulse Resp B/P (MAP) Pulse Ox O2 Delivery O2 Flow Rate FiO2 03/07/17 08:54 99 Room Air 03/07/17 08:39 36.9 100 16 110/72 (85) 98 Room Air 03/07/17 06:41 36.6 58 20 120/71 (87) 96 Room Air 03/07/17 04:05 36.6 97 18 138/95 (109) 96 Room Air 03/07/17 00:00 Room Air 03/06/17 22:49 37.0 78 18 142/82 (102) 96 Room Air 03/06/17 15:20 Room Air 03/06/17 15:17 36.6 79 16 150/81 (104) 98 Room Air Laboratory Results 24 Hours: Test 03/07/17 05:48 White Blood Count 13.66 K/uL Red Blood Count 2.74 M/uL Hemoglobin 9.0 g/dL Hematocrit 26.3 % Mean Corpuscular Volume 96.0 fL Mean Corpuscular Hemoglobin 32.8 pg Mean Corpuscular Hemoglobin Concent 34.2 g/dl Platelet Count 362 K/uL Mean Platelet Volume 8.3 fL Neutrophils (%) (Auto) 63.6 % Lymphocytes (%) (Auto) 14.6 % Monocytes (%) (Auto) 15.7 % Eosinophils (%) (Auto) 5.1 % Basophils (%) (Auto) 0.3 % Neutrophils # (Auto) 8.67 K/uL Lymphocytes # (Auto) 2.00 K/uL Monocytes # (Auto) 2.15 K/uL Eosinophils # (Auto) 0.70 K/uL Basophils # (Auto) 0.04 K/uL Assessment & Plan Assessment: POD#2 SP RIGHT TROCH NAIL Inhouse Planning Pain Management: PO Tylenol, Oxy IR DVT Prophylaxis: TEDs, SCDs, Lovenox Discharge Planning Discharge Planning: assisted facility (REFERRAL PENDING FOR [facility] )
[2017-03-07] MEDS ORDERED: POLYETHYLENE (MIRALAX) 17 GM PACK PO PRN (10:00)
[2017-03-07 15:34] VITALS: BP 129/80; PULSE 82; TEMP 36.8; O2SAT 100
[2017-03-07] MEDS: MoRPHine SULFATE 4 MG/ML 1 ML CARP\\VIAL IV PRN (15:46)
[2017-03-07] MEDS: DOCUSATE SODIUM/SENNA 50/8.6MG TAB PO SCH (20:54)
--- NOTE | 2017-03-07 22:18 | Progress Note ---
Medicine Progress Note Date & Time of Visit: Mar 07, 2017 at 09:30 . Subjective Severe constipation last night, but eventually moved his bowels. Some postoperative pain. No chest pain. No cough or shortness of breath. No nausea or vomiting. . Objective Last 8 Hrs Date Time Temp Pulse Resp B/P (MAP) Pulse Ox O2 Delivery O2 Flow Rate FiO2 03/07/17 15:34 36.8 82 16 129/80 (96) 100 Room Air 03/07/17 15:20 Room Air Physical Exam: General- no distress Eyes- anicteric ENT- hard of hearing Lungs- clear Heart- regular Abdomen- normal bowel sounds, slightly distended, soft, nontender Extremities- no pretibial edema or calf tenderness Neuro- alert . Laboratory Results: Last 24 Hours Test 03/07/17 05:48 White Blood Count 13.66 K/uL Red Blood Count 2.74 M/uL Hemoglobin 9.0 g/dL Hematocrit 26.3 % Mean Corpuscular Volume 96.0 fL Mean Corpuscular Hemoglobin 32.8 pg Mean Corpuscular Hemoglobin Concent 34.2 g/dl Platelet Count 362 K/uL Mean Platelet Volume 8.3 fL Neutrophils (%) (Auto) 63.6 % Lymphocytes (%) (Auto) 14.6 % Monocytes (%) (Auto) 15.7 % Eosinophils (%) (Auto) 5.1 % Basophils (%) (Auto) 0.3 % Neutrophils # (Auto) 8.67 K/uL Lymphocytes # (Auto) 2.00 K/uL Monocytes # (Auto) 2.15 K/uL Eosinophils # (Auto) 0.70 K/uL Basophils # (Auto) 0.04 K/uL RDW Standard Deviation 47.6 fL RDW Coefficient of Variation 13.7 % Immature Granulocyte % (Auto) 0.7 % Immature Granulocyte # (Auto) 0.10 K/uL Sodium Level 133 mmol/L Potassium Level 4.0 mmol/L Chloride Level 97 mmol/L Carbon Dioxide Level 30 mmol/L Anion Gap 6.0 mmol/L Blood Urea Nitrogen 9 mg/dl Creatinine 0.43 mg/dl Est Creatinine Clear Calc Drug Dose 157.8 ml/min Estimated GFR () > 150.0 Estimated GFR (Non- 132.6 BUN/Creatinine Ratio 20.2 Random Glucose 78 mg/dl Calcium Level 8.6 mg/dl Magnesium Level 1.8 mg/dl Assessment & Plan RIGHT INTERTROCHANTERIC HIP FRACTURE S/P ORIF. Doing well postop. ANEMIA Hgb 12.4 --> 8.6. Probable acute blood loss anemia secondary to hip fracture. Hemoglobin this morning = 9.0. Iron supplementation. Follow. LEUKOCYTOSIS WBC 15,000 at time of admission. No fever or specific sign suggesting of infection. Leukocytosis probably secondary to hip fracture/associated hematoma. WBC today = 13,660. Follow. HYPONATREMIA Serum sodium stable at 133. Follow. ALCOHOLISM Relapse when discharged on 03/03/17. Continue thiamine. Ongoing counseling/support. GERD Continue PPI. CONSTIPATION Bowel regimen as ordered. VTE PROPHYLAXIS SQ enoxaparin. DISPOSITION Anticipated need for inpatient rehabilitation for skilled care. Case Management consulted. Needs to establish with PCP for ongoing medical care. . Current Inpatient Medications: Current Inpatient Medications Medications (Trade) Dose Ordered Sig/Jaylene Route Start Time Stop Time Status Last Admin Dose Admin Al Hydrox/Mg Hydrox/Simethicone (Maalox Max Susp) 15 ml Q4H PRN PO 03/04/17 09:00 04/03/17 08:59 Magnesium Hydroxide (Milk Of Magnesia Susp) 30 ml Q6H PRN PO 03/04/17 09:00 04/03/17 08:59 03/06/17 22:24 30 ML Ondansetron HCl (Zofran Inj) 4 mg Q6H PRN IV 03/04/17 09:00 04/03/17 08:59 Magnesium Chloride (Slow-Mag Tab) 64 mg QAM PO 03/04/17 09:00 04/03/17 08:59 03/07/17 07:40 64 MG Miscellaneous (Remove Nicoderm Patch) 1 ea HS N/A 03/04/17 21:00 04/03/17 20:59 03/07/17 20:53 1 EA Thiamine HCl 100 mg/Syringe 10 ml @ 2 mls/min QAM IV 03/04/17 09:00 04/03/17 08:59 03/07/17 07:40 2 MLS/MIN Folic Acid 1 mg/ Syringe 10 ml @ 5 mls/min QAM IV 03/04/17 09:00 04/03/17 08:59 03/07/17 07:40 5 MLS/MIN Famotidine 20 mg/ Dextrose 102 ml @ 200 mls/hr Q12 IV 03/04/17 09:45 04/03/17 09:44 03/07/17 20:54 200 MLS/HR Nicotine (Nicoderm Cq 14MG Patch) 1 patch QAM TD 03/05/17 09:00 04/04/17 08:59 03/07/17 07:36 1 PATCH Morphine Sulfate (MoRPHine SULFATE INJ) 4 mg Q3HWA PRN IV 03/04/17 10:15 03/18/17 10:14 03/07/17 15:46 4 MG Acetaminophen (Tylenol Tab) 650 mg Q6H PRN PO 03/05/17 09:30 04/04/17 09:29 03/05/17 14:36 650 MG Aspirin/Aluminum/ Magnesium/Ca Carb (Ascriptin Tab) 325 mg BID PO 03/05/17 21:00 04/04/17 20:59 03/07/17 20:54 325 MG Oxycodone HCl (Roxicodone Immediate Rel Tab) Give 5-10mg PO Q4H ... Q4 PRN PO 03/05/17 11:00 03/19/17 10:59 03/07/17 19:04 10 MG Enoxaparin Sodium (Lovenox Inj) 40 mg QAM SQ 03/06/17 09:00 04/05/17 08:59 03/07/17 07:36 40 MG Senna/Docusate Sodium (Senokot S Tab) 2 tab BID PO 03/07/17 21:00 04/04/17 20:59 03/07/17 20:54 2 TAB Pantoprazole Sodium (Protonix Tab) 40 mg QAM PO 03/08/17 09:00 04/07/17 08:59 Polyethylene (Miralax Powder Packet) 17 gm Q6H PRN PO 03/07/17 10:00 04/06/17 09:59
[2017-03-07 23:51] VITALS: BP 149/88; PULSE 88; TEMP 37; O2SAT 99
[2017-03-08 06:30] LABS: HEMATOCRIT 25.4 % (42-52); MEAN CELL VOLUME 93.4 fL (80-100); MEAN CORPUSCULAR HEMOGLOBIN 32.7 pg (25-34); MEAN PLATELET VOLUME 8.5 fL (7.4-10.4); PLATELET COUNT 375 K/uL (130-400); RED BLOOD COUNT 2.72 M/uL (4.7-6.1); WHITE BLOOD COUNT 13.54 K/uL (4.8-10.8)
[2017-03-08 06:53] VITALS: BP 134/83; PULSE 84; TEMP 37; O2SAT 98
[2017-03-08] MEDS: OXYCODONE HCL IR 5 MG TAB (IMMEDIATE RELEASE) PO PRN ×3 (06:55→15:43)
[2017-03-08 07:01] LABS: BLOOD UREA NITROGEN 9 mg/dl (7-18); BUN/CREATININE RATIO 21.7 (10-20); CALCIUM 8.6 mg/dl (8.5-10.1); CARBON DIOXIDE 29 mmol/L (21-32); CHLORIDE 96 mmol/L (98-107); CREATININE 0.41 mg/dl (0.60-1.40); GLUCOSE 87 mg/dl (70-99); MAGNESIUM 1.7 mg/dl (1.8-2.4); POTASSIUM 3.9 mmol/L (3.5-5.1); SODIUM 131 mmol/L (136-145)
--- NOTE | 2017-03-08 08:10 | Orthopedic Progress Note ---
Orthopedic Progress Note Date of Service Mar 08, 2017. Subjective Post OP Day: 3 Reports: feeling well, Denies: chest pain, SOB, nausea / vomiting, light headedness, calf pain Objective calves soft nontender, N/V intact, dressing C/D/I, A&O x3, toes mobile Date Time Temp Pulse Resp B/P (MAP) Pulse Ox O2 Delivery O2 Flow Rate FiO2 03/08/17 06:53 37.0 84 18 134/83 (100) 98 Room Air 03/07/17 23:51 37.0 88 18 149/88 (108) 99 Room Air 03/07/17 23:50 Room Air 03/07/17 15:34 36.8 82 16 129/80 (96) 100 Room Air 03/07/17 15:20 Room Air 03/07/17 08:54 99 Room Air 03/07/17 08:39 36.9 100 16 110/72 (85) 98 Room Air Laboratory Results 24 Hours: Test 03/08/17 05:49 Hematocrit 25.4 % Hemoglobin 8.9 g/dL Assessment & Plan Assessment: POD#3 SP RIGHT TROCH NAIL Plan: ORTHOPEDICALLY STABLE- WILL SIGN OFF - FOLLOW UP 10-14 DAYS FOR STAPLE REMOVAL - TTWB STATUS WITH WALKER - DUGLAS HOSE X 2 WEEKS - DRESSING CHANGES PRN, MAY LEAVE OPEN TO AIR IF NOT DRAINING. Inhouse Planning Pain Management: PO Tylenol, Oxy IR DVT Prophylaxis: TEDs, SCDs, Lovenox Discharge Planning Discharge Planning: snf facility (ORTHOPEDICALLY STABLE, POSSIBLE TRANSFER TODAY)
--- NOTE | 2017-03-08 08:11 | Consultant Recommendations ---
Shim Plug Cutter Recommendations Date of Service Mar 08, 2017. Shim Plug Cutter Recommendations TOE TOUCH WEIGHT BEARING WITH WALKER DUGLAS HOSE 20HRS/DAY X 2 WEEKS OK TO SHOWER- NO TUB BATHS FOLLOW UP WITH DR. ROLON IN 10-14 DAYS FOR STAPLE REMOVAL. [phone]
[2017-03-08] MEDS: ENOXAPARIN 40 MG/0.4 ML SYR SQ SCH (08:48)
[2017-03-08] MEDS: ASPIRIN/ALUM/MAGNES/CAL CARB 325 MG TAB PO SCH (08:48)
[2017-03-08] MEDS: DOCUSATE SODIUM/SENNA 50/8.6MG TAB PO SCH (08:48)
[2017-03-08] MEDS: NICOTINE 14 MG/24 HR TDSY TD SCH (08:48)
[2017-03-08] MEDS: THIAMINE HCL INJ 100 MG in SYRINGE 9 ML IV SCH (08:49)
[2017-03-08] MEDS: FoLIC ACID INJ 1 MG in SYRINGE 9.8 ML IV SCH (08:49)
[2017-03-08] MEDS: FAMOTIDINE IV INJ 20 MG in DEXTROSE 5% 100ML 100 ML IV SCH (08:51)
[2017-03-08] MEDS ORDERED: MAGNESIUM CHLORIDE 64MG DELAYED REL TAB PO SCH (09:00)
[2017-03-08] MEDS ORDERED: PANTOprazole SOD 40 MG TAB PO SCH (09:00)
[2017-03-08 12:45] VITALS: BP 134/83; PULSE 84; TEMP 37; O2SAT 98
--- NOTE | 2017-03-08 14:13 | Progress Note ---
Medicine Progress Note Date & Time of Visit: Mar 08, 2017 at 10:15 . Subjective Doing well postoperatively. No chest pain. No cough or dyspnea. No nausea or vomiting. Constipation resolved. Voiding without difficulty. Postop pain well-controlled. . Objective Last 8 Hrs Date Time Temp Pulse Resp B/P (MAP) Pulse Ox O2 Delivery O2 Flow Rate FiO2 03/08/17 12:45 37.0 84 18 98 Room Air 03/08/17 07:45 Room Air 03/08/17 06:53 37.0 84 18 134/83 (100) 98 Room Air Physical Exam: General- no distress Eyes- anicteric ENT- hard of hearing Lungs- clear Heart- RRR Abdomen- normal bowel sounds, soft, nontender Extremities- no pretibial edema or calf tenderness; incisions right lateral thigh still stapled, without erythema or drainage Neuro- alert . Laboratory Results: Last 24 Hours Test 03/08/17 05:49 White Blood Count 13.54 K/uL Red Blood Count 2.72 M/uL Hemoglobin 8.9 g/dL Hematocrit 25.4 % Mean Corpuscular Volume 93.4 fL Mean Corpuscular Hemoglobin 32.7 pg Mean Corpuscular Hemoglobin Concent 35.0 g/dl RDW Standard Deviation 45.6 fL RDW Coefficient of Variation 13.3 % Platelet Count 375 K/uL Mean Platelet Volume 8.5 fL Sodium Level 131 mmol/L Potassium Level 3.9 mmol/L Chloride Level 96 mmol/L Carbon Dioxide Level 29 mmol/L Anion Gap 6.0 mmol/L Blood Urea Nitrogen 9 mg/dl Creatinine 0.41 mg/dl Est Creatinine Clear Calc Drug Dose 165.4 ml/min Estimated GFR () > 150.0 Estimated GFR (Non- 135.2 BUN/Creatinine Ratio 21.7 Random Glucose 87 mg/dl Calcium Level 8.6 mg/dl Magnesium Level 1.7 mg/dl Assessment & Plan RIGHT INTERTROCHANTERIC HIP FRACTURE S/P ORIF. Doing well postop. ANEMIA Hgb 12.4 --> 8.6. Probable acute blood loss anemia secondary to hip fracture. Underlying chronic anemia secondary to alcoholism and malnutrition. Hemoglobin this morning = 8.9. Iron supplementation. Follow. LEUKOCYTOSIS WBC 15,000 at time of admission. No fever or specific sign suggesting of infection. Leukocytosis probably secondary to hip fracture/associated hematoma. WBC today = 13,540. Follow. HYPONATREMIA Serum sodium stable at 131. Salt-liberal diet as long as BP and fluid status OK. Consider fluid restriction if hyponatremia worsens. Follow. ALCOHOLISM Relapse when discharged on 03/03/17. Thiamine, folate, MVI. Ongoing counseling/support. GERD Continue PPI. CONSTIPATION Improved. Bowel regimen as ordered. VTE PROPHYLAXIS SQ enoxaparin. DISPOSITION Need for inpatient rehabilitation or skilled care. Case Management consulted. Arrangements being made for transfer to [facility]. Needs to establish with PCP for ongoing medical care. . Current Inpatient Medications: Current Inpatient Medications Medications (Trade) Dose Ordered Sig/Jaylene Route Start Time Stop Time Status Last Admin Dose Admin Al Hydrox/Mg Hydrox/Simethicone (Maalox Max Susp) 15 ml Q4H PRN PO 03/04/17 09:00 04/03/17 08:59 Magnesium Hydroxide (Milk Of Magnesia Susp) 30 ml Q6H PRN PO 03/04/17 09:00 04/03/17 08:59 03/06/17 22:24 30 ML Ondansetron HCl (Zofran Inj) 4 mg Q6H PRN IV 03/04/17 09:00 04/03/17 08:59 Miscellaneous (Remove Nicoderm Patch) 1 ea HS N/A 03/04/17 21:00 04/03/17 20:59 03/07/17 20:53 1 EA Thiamine HCl 100 mg/Syringe 10 ml @ 2 mls/min QAM IV 03/04/17 09:00 04/03/17 08:59 03/08/17 08:49 2 MLS/MIN Folic Acid 1 mg/ Syringe 10 ml @ 5 mls/min QAM IV 03/04/17 09:00 04/03/17 08:59 03/08/17 08:49 5 MLS/MIN Famotidine 20 mg/ Dextrose 102 ml @ 200 mls/hr Q12 IV 03/04/17 09:45 04/03/17 09:44 03/08/17 08:51 200 MLS/HR Nicotine (Nicoderm Cq 14MG Patch) 1 patch QAM TD 03/05/17 09:00 04/04/17 08:59 03/08/17 08:48 1 PATCH Morphine Sulfate (MoRPHine SULFATE INJ) 4 mg Q3HWA PRN IV 03/04/17 10:15 03/18/17 10:14 03/07/17 15:46 4 MG Acetaminophen (Tylenol Tab) 650 mg Q6H PRN PO 03/05/17 09:30 04/04/17 09:29 03/05/17 14:36 650 MG Aspirin/Aluminum/ Magnesium/Ca Carb (Ascriptin Tab) 325 mg BID PO 03/05/17 21:00 04/04/17 20:59 03/08/17 08:48 325 MG Oxycodone HCl (Roxicodone Immediate Rel Tab) Give 5-10mg PO Q4H ... Q4 PRN PO 03/05/17 11:00 03/19/17 10:59 03/08/17 11:48 10 MG Enoxaparin Sodium (Lovenox Inj) 40 mg QAM SQ 03/06/17 09:00 04/05/17 08:59 03/08/17 08:48 40 MG Senna/Docusate Sodium (Senokot S Tab) 2 tab BID PO 03/07/17 21:00 04/04/17 20:59 03/08/17 08:48 2 TAB Pantoprazole Sodium (Protonix Tab) 40 mg QAM PO 03/08/17 09:00 04/07/17 08:59 03/08/17 08:47 40 MG Polyethylene (Miralax Powder Packet) 17 gm Q6H PRN PO 03/07/17 10:00 04/06/17 09:59 Magnesium Chloride (Slow-Mag Tab) 64 mg BID PO 03/08/17 09:00 04/03/17 08:59 03/08/17 08:49 64 MG
[2017-03-08] MEDS ORDERED: SLWMEC PO (14:25)
[2017-03-08] MEDS ORDERED: MRLP17X PO (14:25)
[2017-03-08] MEDS ORDERED: [UNRECOGNIZED DRUG - CODE] PO (14:25)
[2017-03-08] MEDS ORDERED: RXC5 PO (14:25)
[2017-03-08] MEDS ORDERED: SENN8.6T7 PO (14:25)
[2017-03-08] MEDS ORDERED: FERR325T5 PO (14:25)
[2017-03-08] MEDS ORDERED: NICO14DI5 TD (14:25)
[2017-03-08] MEDS ORDERED: LVNIS40 SQ (14:25)
[2017-03-08] MEDS ORDERED: TYLOTC500 PO (14:25)
--- NOTE | 2017-03-08 14:32 | Discharge Instructions ---
Discharge Instructions Date of Service Mar 08, 2017. Admission Reason for Admission: right hip fracture . Discharge Discharge Diagnosis / Problem: right hip fracture Discharge Goals Goal(s): Decrease discomfort, Improve disease control Activity Recommendations Activity Level: Assistance Required Therapies: Physical Therapy, Occupational Therapy Weightbearing Status: Right weightbearing (toe-touch wieght bearing with walker ) May shower. No tub baths. . . Additional Information Patient informed of condition: Yes Advance Directives: No DNR: No Level of Care: Skilled Communicable Disease: No Prognosis: Improving Nielsen Catheter: No Instructions / Follow-Up Instructions / Follow-Up FOLLOW-UP APPOINTMENTS: ORTHOPEDICS Dr. Fry in 10-14 days postop for recheck and staple removal. Please call his office for appointment. [phone] MEDICINE Patient needs to establish with PCP of his choice to see after release from your institution. . Current Hospital Diet Patient's current hospital diet: Regular Diet Discharge Diet Recommended Diet: Regular Diet Procedures Procedures Performed: ORIF Right intertrochanteric Hip Fracture Pending Studies Studies pending at discharge: no Physician Orders On Transfer Special Precautions: skin precautions fall precautions . Dressing Changes: sterile gauze dressings to right hip / thigh incisions daily . Vital Signs: routine . Weigh: routine . Additional Orders: Please check CBC, basic metabolic profile, and magnesium weekly until stable, then as clinically indicated. . Medical Emergencies . Who to Call and When: Medical Emergencies: If at any time you feel your situation is an emergency, please call 911 immediately. . Non-Emergent Contact Non-Emergency issues call your: Primary Care Provider, Hospital Doctor . . "Provider Documentation" section prepared by David Bingham. . Waterworks Pump Station Operator Recommendations Waterworks Pump Station Operator Recommendations: TOE TOUCH WEIGHT BEARING WITH WALKER DUGLAS HOSE 20HRS/DAY X 2 WEEKS OK TO SHOWER- NO TUB BATHS FOLLOW UP WITH DR. FRY IN 10-14 DAYS FOR STAPLE REMOVAL. [phone] Core Measure Problem Core Measures: None [place] Drug Monitoring Program Search Results: patient reviewed within database, no issues identified
[2017-03-08] MEDS ORDERED: MULTTAB58 PO (14:33)
--- NOTE | 2017-03-08 14:41 | Discharge Summary ---
Discharge Summary Date of Service Mar 08, 2017. Discharge Summary Admission Date: Mar 04, 2017 at 09:01 Discharge Date: Mar 08, 2017 Discharge Disposition: senior living facility ([facility]) Principal Diagnosis: right hip fracture . Secondary Diagnoses/Problems: Chronic and Resolved Medical Problems: Alcoholism Anemia- chronic + acute blood loss GERD Hearing loss Hypomagnesemia Hyponatremia Procedures: ORIF right hip by Dr. Fry 03/05/17 PT OT . Medication Reconciliation New Medications: Acetaminophen (Tylenol) 500 Mg Tab 1000 MG PO BID PRN for Pain for 30 Days Ascorbic Acid (Ascorbic Acid) 500 Mg/Ml Inj 500 MG PO DAILY for 30 Days Take with lunch. Ferrous Sulfate (Ferrous Sulfate) 325 Mg Tab 325 MG PO DAILY for 30 Days Take with lunch. Multiple Vitamin (Multivitamin) 1 Tab Tab 1 TAB PO DAILY for 30 Days Enoxaparin (Enoxaparin Sodium) 40 Mg/0.4 Ml Inj 40 MG SQ QAM for 30 Days Continue until ambulatory. Magnesium Chloride (Slow-Mag Tab) 64 Mg Tabcr 64 MG PO BID for 30 Days Nicotine (Nicoderm Cq 14MG Patch) 14 Mg/24 Hr Dis 1 PATCH TD QAM for 30 Days taper as tolerated Oxycodone HCl (Oxycodone HCl) 5 Mg Tab 0 PO UD PRN for Pain, #24 TAB 5 mg every 6 hrs as needed for moderate pain 10 mg every 6 hrs as needed for severe pain Polyethylene (Miralax) 17 Gm Pow 17 GM PO Q6H PRN for Constipation for 30 Days Sennosides-Docusate Sodium (Senokot S) 1 Tab Tab 2 TAB PO BID for 30 Days, #120 TAB Continued Medications: Folic Acid (Folic Acid) 1 Mg Tab 1 MG PO DAILY for 30 Days, #30 TAB Omeprazole (Prilosec) 40 Mg Cap 1 CAP PO DAILY for 30 Days, #30 CAP 3 Refills Thiamine HCl (Vitamin B-1) 100 Mg Tab 100 MG PO Q24H for 30 Days, #30 TAB Discontinued Medications: Magnesium Chloride (Slow-Mag Tab) 64 Mg Tabcr 64 MG PO QAM for 30 Days, #30 TABS Nicotine (Nicoderm Cq) 21 Mg/24 Hr Dis 1 PATCH TD QAM for 30 Days, #30 PATCH Admission Information HPI (per Admitting provider): This 51-year-old male with past medical history significant for alcoholism, multiple admissions for alcohol and falls, history of tobacco abuse, chronic anemia, homelessness, was recently in the hospital from February 15 to March 03 , was supposed to go to alcohol rehab but could not find a bed until next month so he was discharged home. The patient says after he went home he drank about 3-4 cans of beer last night and he said he did not drink too much and in the morning when he was walking his legs gave up and he just fell down and took over 20 minutes to get up. He did not lose his consciousness. He was brought into the ER and in the ER he was found to have right hip fracture, pain in the fracture site. Denies any chest pain, no shortness of breath, no cough, no fever, no chills, no headaches, no blurred visions, no dizziness, no nausea, no vomiting, no abdominal pain. Blood pressure slightly on the lower side, currently resting comfortably. . Physical Exam (per Admitting): GENERAL: The patient is alert and awake, not in distress. VITAL SIGNS: Temperature is 36.4, pulse 110, respiration rate of 24, blood pressure 117/81, oxygen 98% on room air. HEAD, EYES, EARS, NOSE, AND THROAT: No pallor, no icterus. Pupils equal, round and reactive to light. NECK: No JVD. No neck masses, no carotid bruit. CARDIOVASCULAR: S1, S2 heard, regular rate and rhythm. No murmur, no gallop. RESPIRATORY SYSTEM: Clear to auscultation bilaterally. No wheezing, no crackles. ABDOMEN: Soft, bowel sounds present, nontender. No distention. CENTRAL NERVOUS SYSTEM: Cranial nerves II-XII grossly intact, nonfocal. EXTREMITIES: Right lower extremity slightly shortened and externally rotated. No edema, no erythema seen. . Hospital Course RIGHT INTERTROCHANTERIC HIP FRACTURE Drinking day of admission, fell, and fractured his right hip. Dr. Fry performed ORIF 03/05/17. Doing well postop. ANEMIA Hgb 12.4 --> 8.6. Probable acute blood loss anemia secondary to hip fracture. Underlying chronic anemia secondary to alcoholism and malnutrition. Hemoglobin day of discharge = 8.9. Iron supplementation. Follow. LEUKOCYTOSIS WBC 15,000 at time of admission. No fever or specific sign suggesting of infection. Leukocytosis probably secondary to hip fracture/associated hematoma. WBC day of discharge was 13,540. Follow. HYPONATREMIA Serum sodium stable at 131. Salt-liberal diet as long as BP and fluid status OK. Consider fluid restriction if hyponatremia worsens. Follow. HYPOMAGNESEMIA Mg as low as 1.6. Oral replacement. Follow. ALCOHOLISM Relapse when discharged on 03/03/17. Thiamine, folate, MVI. Ongoing counseling/support. GERD Continue PPI. CONSTIPATION Improved. Bowel regimen as ordered. VTE PROPHYLAXIS SQ enoxaparin until ambulatory. TEDS. DISPOSITION Need for inpatient rehabilitation or skilled care. Case Management consulted. Arrangements being made for transfer to [facility]. Needs to establish with PCP for ongoing medical care. . Total time spent on discharge = 45 min. This includes examination of the patient, discharge planning, medication reconciliation, and communication with other providers. . Discharge Instructions Date of Service Mar 08, 2017. Admission Reason for Admission: right hip fracture . Discharge Discharge Diagnosis / Problem: right hip fracture Discharge Goals Goal(s): Decrease discomfort, Improve disease control Activity Recommendations Activity Level: Assistance Required Therapies: Physical Therapy, Occupational Therapy Weightbearing Status: Right weightbearing (toe-touch wieght bearing with walker ) May shower. No tub baths. . . Additional Information Patient informed of condition: Yes Advance Directives: No DNR: No Level of Care: Skilled Communicable Disease: No Prognosis: Improving Nielsen Catheter: No Instructions / Follow-Up Instructions / Follow-Up FOLLOW-UP APPOINTMENTS: ORTHOPEDICS Dr. Fry in 10-14 days postop for recheck and staple removal. Please call his office for appointment. [phone] MEDICINE Patient needs to establish with PCP of his choice to see after release from your institution. . Current Hospital Diet Patient's current hospital diet: Regular Diet Discharge Diet Recommended Diet: Regular Diet Procedures Procedures Performed: ORIF Right intertrochanteric Hip Fracture Pending Studies Studies pending at discharge: no Physician Orders On Transfer Special Precautions: skin precautions fall precautions . Dressing Changes: sterile gauze dressings to right hip / thigh incisions daily . Vital Signs: routine . Weigh: routine . Additional Orders: Please check CBC, basic metabolic profile, and magnesium weekly until stable, then as clinically indicated. . Medical Emergencies . Who to Call and When: Medical Emergencies: If at any time you feel your situation is an emergency, please call 911 immediately. . Non-Emergent Contact Non-Emergency issues call your: Primary Care Provider, Hospital Doctor . . "Provider Documentation" section prepared by David Bingham. . Hand Cloth Folder Recommendations Hand Cloth Folder Recommendations: TOE TOUCH WEIGHT BEARING WITH WALKER DUGLAS HOSE 20HRS/DAY X 2 WEEKS OK TO SHOWER- NO TUB BATHS FOLLOW UP WITH DR. FRY IN 10-14 DAYS FOR STAPLE REMOVAL. [phone] Core Measure Problem Core Measures: None [place] Drug Monitoring Program Search Results: patient reviewed within database, no issues identified .
[2017-03-14] MEDS ORDERED: ASCO500T16 PO (11:24)
[2017-03-14] MEDS ORDERED: ENOX40IN SQ (11:24)
[2017-03-14] MEDS ORDERED: OXYC1TAB3 PO (11:25)
[2017-03-14] MEDS ORDERED: ACET1TAB84 PO (11:25)
[2017-03-14] MEDS ORDERED: POLY335019 PO (11:25)
[2017-03-14] MEDS ORDERED: SENN8.6C PO (11:25)
[2017-03-14] MEDS ORDERED: OMEP40CA41 PO (11:25)
[2017-03-14] MEDS ORDERED: MULT-506 PO (11:25)
[2017-03-14] MEDS ORDERED: FERR1TAB13 PO (11:25)
[2017-03-14] MEDS ORDERED: NICO14DI31 TD (11:25)
[2017-03-14] MEDS ORDERED: FLV1 PO (11:25)
[2017-03-14] MEDS ORDERED: ONDA4TAB65 PO (11:25)
[2017-03-14] MEDS ORDERED: THIA100T11 PO (11:25)
[2017-04-25] MEDS ORDERED: ACET160S3 PO (07:42)
[2017-04-25] MEDS ORDERED: FERR15DR5 PO (07:42)
[2017-04-25] MEDS ORDERED: MOML PO (07:42)
[2017-04-25] MEDS ORDERED: DOCUSATE/SENNA PO (07:42)
[2017-04-25] MEDS ORDERED: BISA10SU3 PR (07:42)
[2017-04-25] MEDS ORDERED: LANS30CA12 PO (07:42)
[2017-04-25] MEDS ORDERED: SODIENE PR (07:42)
[2017-04-25] MEDS ORDERED: MULT1LIQ6 PO (07:42)
== END 2017-03-08 16:17 | DRG 481 ==
LOC: EDBD 07:02 → C.EDA 07:04 → C.3E 09:01 → ENRESERV 09:14 → C.MSW 21:56
PROVIDERS: ADMIT Internal Medicine; ATTEND Hospitalist
PROC: 0QS604Z Reposition Right Upper Femur with Internal Fixation Device, Open Approach (ICD-10-PCS; principal; 2017-03-05 07:30)
DX: S72.141A Displaced intertrochanteric fracture of right femur, initial encounter for closed fracture (principal); D62 Acute posthemorrhagic anemia; E87.1 Hypo-osmolality and hyponatremia; E46 Unspecified protein-calorie malnutrition; Z68.1 Body mass index [BMI] 19.9 or less, adult; W18.30XA Fall on same level, unspecified, initial encounter; Y92.830 Public park as the place of occurrence of the external cause; E83.42 Hypomagnesemia; D72.829 Elevated white blood cell count, unspecified; K59.00 Constipation, unspecified; D53.9 Nutritional anemia, unspecified; K21.9 Gastro-esophageal reflux disease without esophagitis; F10.20 Alcohol dependence, uncomplicated; F17.210 Nicotine dependence, cigarettes, uncomplicated; Z91.81 History of falling; Z59.0 Homelessness; Z79.899 Other long term (current) drug therapy

== ENCOUNTER → 2017-03-15 | Outpatient (CLI) | payer OTHER ==
[~2017-03-15] MED LIST changes: +ACET160S3 PO; +ACET1TAB84 PO; +ASCO500T16 PO; +BISA10SU3 PR; +DOCUSATE/SENNA PO; +ENOX40IN SQ; +FERR15DR5 PO; +FERR1TAB13 PO; +LANS30CA12 PO; +MOML PO; +MRLP17X PO; +MULT-506 PO; +MULT1LIQ6 PO; +NICO14DI31 TD; -NICO21DI4 TD; +ONDA4TAB65 PO; +OXYC1TAB3 PO; +POLY335019 PO; +SENN8.6C PO; +SODIENE PR; +THIA100T11 PO; -THM100 PO; +TYLOTC500 PO
[2017-03-15 08:36] LABS: HEMATOCRIT 29.2 % (42-52); MEAN CELL VOLUME 95.4 fL (80-100); MEAN CORPUSCULAR HGB CONC 32.5 g/dl (32-36); MEAN PLATELET VOLUME 8.2 fL (7.4-10.4); PLATELET COUNT 522 K/uL (130-400); RED BLOOD COUNT 3.06 M/uL (4.7-6.1); WHITE BLOOD COUNT 10.37 K/uL (4.8-10.8)
[2017-03-15 08:46] LABS: BLOOD UREA NITROGEN 7 mg/dl (7-18); BUN/CREATININE RATIO 15.9 (10-20); CARBON DIOXIDE 27 mmol/L (21-32); CHLORIDE 100 mmol/L (98-107); CREATININE 0.41 mg/dl (0.60-1.40); GLUCOSE 90 mg/dl (70-99); POTASSIUM 3.9 mmol/L (3.5-5.1); SODIUM 134 mmol/L (136-145)
== END | disposition home or self-care (01) ==
LOC: C.LABCC 07:58
PROVIDERS: ATTEND Internal Medicine
DX: I10 Essential (primary) hypertension (principal)

== ENCOUNTER → 2017-03-16 | Outpatient (CLI) | payer OTHER ==
[2017-03-16 09:07] LABS: MEAN CELL VOLUME 95.8 fL (80-100); MEAN CORPUSCULAR HGB CONC 32.3 g/dl (32-36); MEAN PLATELET VOLUME 8.2 fL (7.4-10.4); PLATELET COUNT 533 K/uL (130-400); RED BLOOD COUNT 3.13 M/uL (4.7-6.1); WHITE BLOOD COUNT 12.37 K/uL (4.8-10.8)
== END ==
LOC: C.LABCC 08:36
PROVIDERS: ATTEND Internal Medicine
DX: D64.9 Anemia, unspecified (principal)

== ENCOUNTER → 2017-03-21 | Outpatient (CLI) | payer OTHER ==
[2017-03-21 18:56] LABS: URINE APPEARANCE CLEAR (CLEAR); URINE BILIRUBIN NEG (NEG); URINE COLOR YELLOW; URINE NITRITE NEG (NEG); URINE SPECIFIC GRAVITY 1.012 (1.000-1.030); UROBILINOGEN NEG (NEG)
[2017-03-21 19:01] LABS: MANUAL MICROSCOPIC REQUIRED? NO; REVIEW REQ? NO
== END | disposition home or self-care (01) ==
LOC: C.LABCC 17:55
PROVIDERS: ATTEND Internal Medicine
DX: D72.829 Elevated white blood cell count, unspecified (principal)

== ENCOUNTER → 2017-03-22 | Outpatient (CLI) | payer OTHER ==
[2017-03-22 08:31] LABS: HEMATOCRIT 32.6 % (42-52); MEAN CELL VOLUME 95.6 fL (80-100); MEAN CORPUSCULAR HEMOGLOBIN 31.7 pg (25-34); MEAN CORPUSCULAR HGB CONC 33.1 g/dl (32-36); MEAN PLATELET VOLUME 8.4 fL (7.4-10.4); PLATELET COUNT 712 K/uL (130-400); RED BLOOD COUNT 3.41 M/uL (4.7-6.1); WHITE BLOOD COUNT 9.88 K/uL (4.8-10.8)
[2017-03-22 08:43] LABS: BLOOD UREA NITROGEN 6 mg/dl (7-18); BUN/CREATININE RATIO 12.4 (10-20); CALCIUM 9.5 mg/dl (8.5-10.1); CARBON DIOXIDE 28 mmol/L (21-32); CHLORIDE 99 mmol/L (98-107); CREATININE 0.45 mg/dl (0.60-1.40); GLUCOSE 81 mg/dl (70-99); POTASSIUM 3.9 mmol/L (3.5-5.1); SODIUM 135 mmol/L (136-145)
== END | disposition home or self-care (01) ==
LOC: C.LABCC 08:02
PROVIDERS: ATTEND Internal Medicine
DX: I10 Essential (primary) hypertension (principal); D64.9 Anemia, unspecified

== ENCOUNTER → 2017-03-22 | Day surgery (SDC) | payer OTHER ==
[2017-03-14 11:25] VITALS: BMI 17.0
[~2017-03-22] VITALS: Ht 180.3 cm; Wt 54.1 kg
[~2017-03-22] MED LIST changes: +FENTANYL CITRATE INJ 50 MCG/1 ML 2 ML VIAL ONE; +LIDOCAINE HCL 2% 2 ML VIAL (20MG/ML) ONE; +OXYCODONE HCL IR 5 MG TAB (IMMEDIATE RELEASE) PO STA; +PROPOFOL IV EMULSION 10 MG/ML 20 ML VIAL IV ONE; +SODIUM CHLORIDE 0.9% 500ML 500 ML IV ONE
[2017-03-22 08:21] VITALS: Ht 180.3 cm; Wt 54.1 kg
--- NOTE | 2017-03-22 08:21 | Endo History and Physical ---
History & Physical Date of Service: Mar 22, 2017. Chief Complaint: Dysphagia Referring Physician: History of Present Illness 51 yo presenting for EGD for dysphagia Past Surgical History Hx Cardiac Surgery: No Hx Internal Defibrillator: No Hx Pacemaker: No Hx Abdominal Surgery: Yes (Hernia repair) Hx of Implantable Prosthesis: No Hx Post-Op Nausea and Vomiting: No Hx Cancer Surgery: No Hx Thoracic Surgery: No Hx Orthopedic: Yes (RT TROCH NAIL (HIP FX REPAIR)) Hx Urinary Tract Surgery: No Social History Smoking Status: Current Every Day Smoker Hx Substance Use: No Hx Alcohol Use: Yes Allergies Coded Allergies: Penicillins (Verified Adverse Reaction, Mild, TIRED, 03/22/17) Current Medications Reported Home Medications Medications Dose Route/Sig Max Daily Dose Days Date Category Zofran (Ondansetron Hcl) 4 Mg Tab 4 Mg PO PRN PRN 03/14/17 Reported Miralax (Polyethylene Glycol 3350) 1 Pow 17 Gm PO Q6H PRN 03/14/17 Reported Roxicodone Ir (Oxycodone HCl) 5 Mg Tab 2 Tab PO Q6H PRN 30 03/14/17 Reported Roxicodone Ir (Oxycodone HCl) 5 Mg Tab 5 Mg PO Q6H PRN 03/14/17 Reported Tylenol Arthritis Ext Rel (Acetaminophen) 650 Mg Cplt 650 Mg PO Q6H PRN 03/14/17 Reported Vitamin B-1 (Thiamine HCl) 100 Mg Tab 100 Mg PO QAM 03/14/17 Reported Prilosec (Omeprazole) 40 Mg Cap 40 Mg PO QAM 03/14/17 Reported Folic Acid 1 Mg Tab 1 Tab PO QAM 03/14/17 Reported Senna (Sennosides) 8.6 Mg Cap 2 Cap PO BID 03/14/17 Reported Nicoderm Cq 14MG Patch (Nicotine) 14 Mg/24 Hr Dis 1 Patch TD DAILY 03/14/17 Reported Multivitamin (Multivitamins) Tab 1 Tab PO QAM 03/14/17 Reported Kp Ferrous Sulfate (Ferrous Sulfate) 325 Mg Tab 1 Tab PO DAILY AT 1230 30 03/14/17 Reported Lovenox (Enoxaparin Sodium) 40 Mg/0.4 Ml Inj 40 Mg SQ DAILY PRN 03/14/17 Reported Ascorbic Acid 500 Mg Tab 500 Mg PO QAM 03/14/17 Reported Tylenol (Acetaminophen) 500 Mg Tab 1,000 Mg PO BID PRN 30 03/08/17 Rx Miralax (Polyethylene) 17 Gm Pow 17 Gm PO Q6H PRN 30 03/08/17 Rx Slow-Mag Tab (Magnesium Chloride) 64 Mg Tabcr 64 Mg PO BID 30 03/08/17 Rx Vital Signs Weight (Kilograms): 57.73 Height (Feet): 0 Height (Inches): 71 Physical Exam General Appearance: WD/WN, no apparent distress, + thin Respiratory/Chest: Auscultation: breath sounds normal, CTA except as noted, no wheezing Cardiovascular: Heart Auscultation: RRR, normal S1 Abdomen: Bowel Sounds: normal Inspection & Palpation: soft, non-distended Assessment and Plan 51 yo presenting for EGD for dysphagia
--- NOTE | 2017-03-22 09:12 | GI REPORT ---
Procedure Date: 03/22/2017 8:48 AM Procedure: Upper GI endoscopy Indications: Dysphagia Medicines: General Anesthesia Complications: No immediate complications. Estimated blood loss: None. Estimated Blood Loss: Estimated blood loss: none. Procedure: Pre-Anesthesia Assessment: - Pre-Anesthesia Assessment: - Prior to the procedure, a History and Physical was performed, and patient medications, allergies and sensitivities were reviewed. The patient's tolerance of previous anesthesia was reviewed. Please see Piazza for complete details. - The risks and benefits of the procedure and the sedation options and risks were discussed with the patient. All questions were answered and informed consent was obtained. - Patient identification and proposed procedure were verified prior to the procedure by the physician and the nurse. The procedure was verified in the pre-procedure area in the procedure room. After obtaining informed consent, the endoscope was passed carefully and meticuously under direct vision and only advanced when the lumen was clearly identified, C02 insuflation was utilized throughout the entirity of the procedure. Throughout the procedure, the patient's blood pressure, pulse, and oxygen saturations were monitored continuously. After obtaining informed consent, the endoscope was passed under direct vision. Throughout the procedure, the patient's blood pressure, pulse, and oxygen saturations were monitored continuously. The scope was introduced through the mouth, and advanced to the upper third of esophagus. The Endoscope was introduced through the and advanced to the. The upper GI endoscopy was accomplished without difficulty. The patient tolerated the procedure well. Findings: One severe benign-appearing, intrinsic stenosis was found 20 cm from the incisors. This measured 5 mm (inner diameter) and was not able to be transversed even with the XP scope (5.9 mm), did not dilate out of concern of fistula, and there appeared to be a proximal mild diverticulum to the stenosis itself. The stenosis did not appear malignant. Impression: - Benign-appearing esophageal stenosis. - No specimens collected. Recommendation: - Discharge patient to home. - Perform a cine-esophagram today. - With further recommendations to follow Manjeet Guy MD 03/22/2017 9:11:49 AM This report has been signed electronically. Note Initiated On: 03/22/2017 8:48 AM I attest to the content of the Intraoperative Record and orders documented therein, exceptions below
--- NOTE | 2017-03-22 09:17 | Anesthesiology Progress Note ---
Anesthesia Post Op Note Date & Time Mar 22, 2017 at 09:17 Vital Signs Pain Intensity: 7 Notes Mental Status: alert / awake / arousable, participated in evaluation Pt Amnestic to Procedure: Yes Nausea / Vomiting: adequately controlled Pain: adequately controlled Airway Patency, RR, SpO2: stable & adequate BP & HR: stable & adequate Hydration State: stable & adequate Anesthetic Complications: no major complications apparent
--- NOTE | 2017-03-22 09:23 | Discharge Instructions ---
Endoscopy Patient Instructions Date / Procedure(s) Performed Mar 22, 2017. EGD Allergy Information Coded Allergies: Penicillins (Verified Adverse Reaction, Mild, TIRED, 03/22/17) Discharge Date / Findings Mar 22, 2017. Findings - Benign-appearing esophageal stenosis. - No specimens collected. Recommendation: - Discharge patient to home. - Perform a cine-esophagram today. - With further recommendations to follow - Pureed and Full Liquid diet only Medication Instructions Stopped Medication(s): Lovenox last given 02/18/17 Provider Instructions Activity Restrictions - No exercising or heavy lifting for 24 hours. - Do not drink alcohol the day of the procedure. - Do not drive a car or operate machinery until the day after the procedure. - Do not make any important decisions or sign important papers in 24 hours after the procedure. Following Day: - Return to full activity which may include returning to work/school. Diet Start your diet with liquids and light foods (jello, soup, juice, toast). Then eat your usual diet if not nauseated. Treatment For Common After Affects For mild abdominal pain, bloating, or excessive gas: - Rest - Eat lightly - Lie on right side Follow-Up Information Follow-up with Joslyn as scheduled Anesthesia Information What You Should Know You have had a procedure that required some medicine to reduce anxiety and discomfort. This treatment is called moderate sedation. After receiving the treatment, you may be sleepy, but you will be able to breathe on your own. The effects of the treatment may last for several hours. Follow these instructions along with Activity/Diet recommendations noted above: * Do NOT do anything where dizziness or clumsiness would be dangerous. * Rest quietly at home today, then you can be up and about tomorrow. * Have a responsible person stay with you the rest of today. * You may have had an I.V. today. If so, you may take the dressing off later today. Recommendations Call your doctor if: * Trouble breathing * Continuous vomiting for more than 24 hours * Temperature above 101 degrees * Severe abdominal pain or bloating * Pain not relieved by pain medicine ordered * There is increased drainage or redness from any incision * A large amount of rectal bleeding greater than 2-3 tablespoons. (If you had a polyp/s removed or have hemorrhoids, a small amount of blood - from the rectum is to be expected.) * You have any unanswered questions or concerns. IN THE EVENT OF A SERIOUS EMERGENCY, GO TO THE NEAREST EMERGENCY ROOM Your discharge instructions were prepared by provider Manjeet Guy. Patient Instructions Signature Page Aaron Chang Patient (or Guardian) Signature/Date: I have read and understand the instructions given to me by my caregivers. Caregiver/RN/Doctor Signature/Date: The above-named patient and/or guardian has received patient instructions on this date. + Original Patient Signature Page (only) stays with chart. Please make copy for patient.
[2017-03-22 10:00] VITALS: BP 172/89; PULSE 74; O2SAT 100
--- NOTE | 2017-03-22 13:23 | DIAGNOSTIC IMAGING REPORT ---
(BARIUM SWALLOW) ESOPHAGUS CLINICAL HISTORY: 51 years-old Male with Dysphagia. L endoscopy with apparent stricture noted of the upper esophagus. TECHNIQUE: Barium contrast and effervescent crystals were administered to the patient under fluoroscopic examination. Multiple images were obtained and submitted for review. FLUOROSCOPY TIME: 1.0 minutes COMPARISON: CTA chest 02/15/2017. FINDINGS: There is a high-grade irregular focal stricture of the upper esophagus extending from approximately T1-T2 distally for a length of 8.0 cm. There is decreased contrast flowing through this stricture without complete obstruction. The mucosa appears irregular within this distribution. The remainder of the esophagus is within normal limits. No significant reflux or hiatal hernia. A few tertiary contractions are noted. The GE junction appears unremarkable. Mild amount of silent aspiration was noted. Impression: 1. High-grade irregular stricture of the upper esophagus extends from T1-T2 distally for a length of approximately 8.0 cm. Differential considerations would include inflammatory, caustic or neoplastic stricture. 2. Mild silent aspiration. These findings were discussed with Dr. Manjeet Guy on 03/22/2017 at 1:20 PM The above report was generated using voice recognition software. It may contain grammatical, syntax or spelling errors. Electronically signed by: Mark Hernandez M.D. 03/22/2017 1:22 PM Dictated Date/Time: 03/22/2017 1:09 PM
== END | disposition home or self-care (01) ==
LOC: C.GI 07:56
PROVIDERS: ATTEND Internal Medicine
DX: R13.10 Dysphagia, unspecified (principal); F17.200 Nicotine dependence, unspecified, uncomplicated; K22.2 Esophageal obstruction

== ENCOUNTER → 2017-03-29 | Outpatient (CLI) | payer OTHER ==
[~2017-03-29] MED LIST changes: -FENTANYL CITRATE INJ 50 MCG/1 ML 2 ML VIAL ONE; -LIDOCAINE HCL 2% 2 ML VIAL (20MG/ML) ONE; -OXYCODONE HCL IR 5 MG TAB (IMMEDIATE RELEASE) PO STA; -PROPOFOL IV EMULSION 10 MG/ML 20 ML VIAL IV ONE; -SODIUM CHLORIDE 0.9% 500ML 500 ML IV ONE
[2017-03-29 10:52] LABS: HEMATOCRIT 30.9 % (42-52); MEAN CELL VOLUME 94.5 fL (80-100); MEAN CORPUSCULAR HEMOGLOBIN 31.2 pg (25-34); RED BLOOD COUNT 3.27 M/uL (4.7-6.1); WHITE BLOOD COUNT 8.57 K/uL (4.8-10.8)
[2017-03-29 10:53] LABS: MEAN PLATELET VOLUME 8.6 fL (7.4-10.4); PLATELET COUNT 498 K/uL (130-400)
[2017-03-29 11:23] LABS: BLOOD UREA NITROGEN 6 mg/dl (7-18); BUN/CREATININE RATIO 13.5 (10-20); CALCIUM 8.9 mg/dl (8.5-10.1); CARBON DIOXIDE 27 mmol/L (21-32); CHLORIDE 99 mmol/L (98-107); CREATININE 0.45 mg/dl (0.60-1.40); GLUCOSE 84 mg/dl (70-99); SODIUM 134 mmol/L (136-145)
== END ==
LOC: C.LABCC 08:25
PROVIDERS: ATTEND Internal Medicine
DX: K22.2 Esophageal obstruction (principal)

== ENCOUNTER → 2017-04-05 | Outpatient (CLI) | payer OTHER ==
[2017-04-05 08:32] LABS: MEAN CELL VOLUME 93.9 fL (80-100); MEAN CORPUSCULAR HEMOGLOBIN 30.4 pg (25-34); MEAN CORPUSCULAR HGB CONC 32.4 g/dl (32-36); MEAN PLATELET VOLUME 8.9 fL (7.4-10.4); PLATELET COUNT 358 K/uL (130-400); RED BLOOD COUNT 3.62 M/uL (4.7-6.1); WHITE BLOOD COUNT 9.06 K/uL (4.8-10.8)
[2017-04-05 08:41] LABS: BLOOD UREA NITROGEN 8 mg/dl (7-18); BUN/CREATININE RATIO 18.2 (10-20); CALCIUM 9.2 mg/dl (8.5-10.1); CARBON DIOXIDE 26 mmol/L (21-32); CHLORIDE 102 mmol/L (98-107); CREATININE 0.44 mg/dl (0.60-1.40); GLUCOSE 82 mg/dl (70-99); SODIUM 136 mmol/L (136-145)
== END ==
LOC: C.LABCC 08:17
PROVIDERS: ATTEND Internal Medicine
DX: D64.9 Anemia, unspecified (principal); I10 Essential (primary) hypertension

== ENCOUNTER → 2017-05-05 | Day surgery (SDC) | payer OTHER ==
[2017-04-25 07:15] VITALS: BMI 18.0
--- NOTE | 2017-04-25 15:27 | PAT Medication Instructions ---
Service Date Apr 25, 2017. Current Home Medication List Acetaminophen (Tylenol), 1,000 MG PO BID PRN for Pain Acetaminophen (Acetaminophen), 1,000 MG PO DAILY PRN for Pain Ascorbic Acid (Ascorbic Acid), 500 MG PO QAM Bisacodyl (Dulcolax), 1 SUPP IN DAILY PRN for Constipation Ferrous Sulfate (Ferrous Drops), 325 MG PO LUNCH Folic Acid (Folic Acid), 1 TAB PO QAM Lansoprazole (Prevacid), 30 MG PO QAM Magnesium Chloride (Slow-Mag Tab), 64 MG PO BID Magnesium Hydroxide (Milk Of Magnesia), 30 ML PO UD PRN for Constipation Multiple Vitamins W/ Minerals (Multivitamin), 15 ML PO QAM Nicotine (Nicoderm Cq 14MG Patch), 1 PATCH TD DAILY Ondansetron Hcl (Zofran), 4 MG PO PRN PRN for Nausea or Vomiting Oxycodone Immediate Rel Tab (Roxicodone Ir), 10 MG PO Q6H PRN for Pain Oxycodone Ir (Roxicodone Ir), 5 MG PO Q6H PRN for Pain Polyethylene (Miralax), 17 GM PO Q6H PRN for Constipation Sodium Phosphate/Biphosphate (Fleet Enema), 1 EA IN DAILY PRN for Constipation Thiamine Hcl (Vitamin B-1), 100 MG PO QAM [Docusate/Senna], 20 ML PO BID Medication Instructions For Your Scheduled Surgery - Hold the following medications the morning of surgery: [Docusate/Senna], 20 ML PO BID Multiple Vitamins W/ Minerals (Multivitamin), 15 ML PO QAM Magnesium Chloride (Slow-Mag Tab), 64 MG PO BID Magnesium Hydroxide (Milk Of Magnesia), 30 ML PO UD PRN for Constipation Polyethylene (Miralax), 17 GM PO Q6H PRN for Constipation Sodium Phosphate/Biphosphate (Fleet Enema), 1 EA IN DAILY PRN for Constipation Nicotine (Nicoderm Cq 14MG Patch), 1 PATCH TD DAILY Ferrous Sulfate (Ferrous Drops), 325 MG PO LUNCH Folic Acid (Folic Acid), 1 TAB PO QAM Ascorbic Acid (Ascorbic Acid), 500 MG PO QAM Bisacodyl (Dulcolax), 1 SUPP IN DAILY PRN for Constipation - Take the following medications the morning of surgery with a sip of water: Acetaminophen (Tylenol), 1,000 MG PO BID PRN for Pain (if needed) Acetaminophen (Acetaminophen), 1,000 MG PO DAILY PRN for Pain (if needed) Oxycodone Immediate Rel Tab (Roxicodone Ir), 10 MG PO Q6H PRN for Pain (if needed, can be taken up to four hours prior to surgery) Oxycodone Ir (Roxicodone Ir), 5 MG PO Q6H PRN for Pain (if needed, can be taken up to four hours prior to surgery) Ondansetron Hcl (Zofran), 4 MG PO PRN PRN for Nausea or Vomiting (if needed) Lansoprazole (Prevacid), 30 MG PO QAM Thiamine Hcl (Vitamin B-1), 100 MG PO QAM - Take the following medications as scheduled the night before surgery: [Docusate/Senna], 20 ML PO BID Magnesium Chloride (Slow-Mag Tab), 64 MG PO BID Magnesium Hydroxide (Milk Of Magnesia), 30 ML PO UD PRN for Constipation (if needed) Polyethylene (Miralax), 17 GM PO Q6H PRN for Constipation (if needed) Sodium Phosphate/Biphosphate (Fleet Enema), 1 EA IN DAILY PRN for Constipation ( if needed) Bisacodyl (Dulcolax), 1 SUPP IN DAILY PRN for Constipation (if needed) Acetaminophen (Tylenol), 1,000 MG PO BID PRN for Pain (if needed) Acetaminophen (Acetaminophen), 1,000 MG PO DAILY PRN for Pain (if needed) Oxycodone Immediate Rel Tab (Roxicodone Ir), 10 MG PO Q6H PRN for Pain (if needed) Oxycodone Ir (Roxicodone Ir), 5 MG PO Q6H PRN for Pain (if needed) Ondansetron Hcl (Zofran), 4 MG PO PRN PRN for Nausea or Vomiting (if needed) If you have any questions please call us at [phone] or [phone] or [phone]
--- NOTE | 2017-05-04 15:04 | Endo History and Physical ---
History & Physical Date of Service: May 05, 2017. Chief Complaint: Referring Physician: History of Present Illness Aaron Chang is a 51-year-old gentleman referred from Dr. Davis munoz for recurrent pancreatitis. He has been having recurrent pancreatitis number of episodes of the last 4 years. Without an etiology being identified. Serologic workup has been nonrevealing as a cause. He denies alcohol, and CT scans been nonrevealing. Past Surgical History Hx Cardiac Surgery: No Hx Internal Defibrillator: No Hx Pacemaker: No Hx Abdominal Surgery: Yes (Hernia repair) Hx Post-Op Nausea and Vomiting: No Hx Cancer Surgery: No Hx Thoracic Surgery: No Hx Orthopedic: Yes (RT TROCH NAIL (HIP FX REPAIR)) Hx Urinary Tract Surgery: No Social History Smoking Status: Current Every Day Smoker Hx Substance Use: No Hx Alcohol Use: Yes (ALCOHOL ABUSE; 56 DRINKS/WEEK) Allergies Coded Allergies: Penicillins (Verified Adverse Reaction, Mild, TIRED, 04/25/17) Current Medications Reported Home Medications Medications Dose Route/Sig Max Daily Dose Days Date Category Dose Instructions Milk Of Magnesia (Magnesium Hydroxide) 30 Ml Susp 30 Ml PO UD PRN 04/25/17 Reported PER BOWEL PROTOCOL Dulcolax (Bisacodyl) 10 Mg Sup 1 Supp MS DAILY PRN 04/25/17 Reported PER BOWEL PROTOCOL Fleet Enema (Sodium Phosphate/Biphosphate) Char 1 Ea MS DAILY PRN 04/25/17 Reported PER BOWEL PROTOCOL [Docusate/Senna] 20 Ml PO BID 04/25/17 Reported COMPOUND MEDICATION - NO STRENGTH LISTED Prevacid (Lansoprazole) 30 Mg Capcr 30 Mg PO QAM 04/25/17 Reported Ferrous Drops (Ferrous Sulfate) 15 Mg/Ml Edwar 325 Mg PO LUNCH 04/25/17 Reported Acetaminophen 160 Mg/5 Ml Jonelle 1,000 Mg PO DAILY PRN 04/25/17 Reported Multivitamin (Multiple Vitamins W/ Minerals) 1 Liq Liq 15 Ml PO QAM 04/25/17 Reported Zofran (Ondansetron Hcl) 4 Mg Tab 4 Mg PO PRN PRN 03/14/17 Reported Roxicodone Ir (Oxycodone HCl) 5 Mg Tab 10 Mg PO Q6H PRN 03/14/17 Reported Roxicodone Ir (Oxycodone HCl) 5 Mg Tab 5 Mg PO Q6H PRN 03/14/17 Reported Vitamin B-1 (Thiamine HCl) 100 Mg Tab 100 Mg PO QAM 03/14/17 Reported Folic Acid 1 Mg Tab 1 Tab PO QAM 03/14/17 Reported Nicoderm Cq 14MG Patch (Nicotine) 14 Mg/24 Hr Dis 1 Patch TD DAILY 03/14/17 Reported Ascorbic Acid 500 Mg Tab 500 Mg PO QAM 03/14/17 Reported Tylenol (Acetaminophen) 500 Mg Tab 1,000 Mg PO BID PRN 30 03/08/17 Rx Miralax (Polyethylene) 17 Gm Pow 17 Gm PO Q6H PRN 30 03/08/17 Rx Slow-Mag Tab (Magnesium Chloride) 64 Mg Tabcr 64 Mg PO BID 30 03/08/17 Rx Vital Signs Weight (Kilograms): 60.09 Height (Feet): 5 Height (Inches): 11 Assessment and Plan Plan for her EUS for evaluation of recurrent pancreatitis.
[~2017-05-05] VITALS: Ht 180.3 cm; Wt 60.1 kg
[~2017-05-05] MED LIST changes: -ACET1TAB84 PO; +ATROPINE SULFATE 0.1 MG/ML 5ML SYR IV PRN; -ENOX40IN SQ; +FENTANYL CITRATE INJ 50 MCG/1 ML 2 ML VIAL IV PRN; -FERR1TAB13 PO; +KETAMINE HCL INJ 50 MG/ML 10 ML VIAL ONE; +LABETALOL HCL IV 5 MG/ML 20ML IV PRN; +LIDOCAINE HCL 2% 2 ML VIAL (20MG/ML) ONE; +MIDAZOLAM HCL 1 MG/ML 2ML VIAL ONE; -MULT-506 PO; -OMEP40CA41 PO; +ONDANSETRON INJ 2 MG/ML 2 ML VIAL IV PRN; -POLY335019 PO; +PROPOFOL IV EMULSION 10 MG/ML 100 ML VIAL IV ONE; +PROPOFOL IV EMULSION 10 MG/ML 20 ML VIAL IV ONE; -SENN8.6C PO; +SODIUM CHLORIDE 0.9% 500ML 500 ML IV ONE
--- NOTE | 2017-05-05 09:09 | Endo History and Physical ---
History & Physical Date of Service: May 05, 2017. Chief Complaint: Referring Physician: History of Present Illness Aaron Chang is a 51 yo who has dysphagia with a very tight esophageal stricture of an unknown etiology. Patient was lost to follow up after an EGD in Mar 2017. Here today for re-evaluation, has been eating, and gained 10 lbs recently. Off anticoagulation. Modified barium Mar 2017 There is a high-grade irregular focal stricture of the upper esophagus extending from approximately T1-T2 distally for a length of 8.0 cm. There is decreased contrast flowing through this stricture without complete obstruction. The mucosa appears irregular within this distribution. The remainder of the esophagus is within normal limits. No significant reflux or hiatal hernia. A few tertiary contractions are noted. The GE junction appears unremarkable. Mild amount of silent aspiration was noted. Impression: 1. High-grade irregular stricture of the upper esophagus extends from T1-T2 distally for a length of approximately 8.0 cm. Differential considerations would include inflammatory, caustic or neoplastic stricture. 2. Mild silent aspiration. CT of thorax 02/2017 COMPARISON STUDY: Chest CT 07/29/2016. FINDINGS: Mild superior endplate compression deformity at T6. This is likely old. There is an old, healed manubrial fracture. Multiple old, healed left-sided rib fractures. Mild aneurysmal dilatation of the ascending thoracic aorta. This measures up to 4.8 cm at the aortic root. Trace pericardial effusion and a trace left pleural effusion. No evidence for an aortic dissection. The majority of the segmental and subsegmental pulmonary arteries of the bilateral lower lobes are nondiagnostic due to the motion artifact. The remaining pulmonary arteries show no filling defects to suggest pulmonary embolus. No mediastinal or hilar lymphadenopathy. No pneumothorax. Small amount of mucoid material within the distal trachea. Patchy bilateral lower lobe airspace opacities, left greater the right. There is also a 3.3 x 2.2 cm focal area consolidation within the superior segment of the left lower lobe. There are few small groundglass nodular opacities within the right upper lobe posteriorly. IMPRESSION: 1. No evidence for pulmonary embolus with limitations as described above. 2. Trace pericardial effusion and a trace left pleural effusion. 3. Bilateral lower lobe airspace opacities including a 3.3 x 2.2 cm focal area of consolidation within the left lower lobe. This favors a pneumonia possibly due to aspiration. However, one to [address] follow is recommended to ensure resolution of the focal left lower lobe airspace opacity and to exclude the less likely possibility of an underlying mass. There are also a few small nodular airspace opacities within the right upper lobe posteriorly. 4. Aneurysmal dilatation of the ascending thoracic aorta measuring up to 4.8 cm at the aortic root. Past Surgical History Hx Cardiac Surgery: No Hx Internal Defibrillator: No Hx Pacemaker: No Hx Abdominal Surgery: Yes (Hernia repair) Hx Post-Op Nausea and Vomiting: No Hx Cancer Surgery: No Hx Thoracic Surgery: No Hx Orthopedic: Yes (RT TROCH NAIL (HIP FX REPAIR)) Hx Urinary Tract Surgery: No Social History Smoking Status: Current Every Day Smoker Hx Substance Use: No Hx Alcohol Use: Yes (ALCOHOL ABUSE; 56 DRINKS/WEEK) Allergies Coded Allergies: Penicillins (Verified Adverse Reaction, Mild, TIRED, 05/05/17) Current Medications Reported Home Medications Medications Dose Route/Sig Max Daily Dose Days Date Category Dose Instructions Milk Of Magnesia (Magnesium Hydroxide) 30 Ml Susp 30 Ml PO UD PRN 04/25/17 Reported PER BOWEL PROTOCOL Dulcolax (Bisacodyl) 10 Mg Sup 1 Supp SD DAILY PRN 04/25/17 Reported PER BOWEL PROTOCOL Fleet Enema (Sodium Phosphate/Biphosphate) Char 1 Ea SD DAILY PRN 04/25/17 Reported PER BOWEL PROTOCOL [Docusate/Senna] 20 Ml PO BID 04/25/17 Reported COMPOUND MEDICATION - NO STRENGTH LISTED Prevacid (Lansoprazole) 30 Mg Capcr 30 Mg PO QAM 04/25/17 Reported Ferrous Drops (Ferrous Sulfate) 15 Mg/Ml Edwar 325 Mg PO LUNCH 04/25/17 Reported Acetaminophen 160 Mg/5 Ml Jonelle 1,000 Mg PO DAILY PRN 04/25/17 Reported Multivitamin (Multiple Vitamins W/ Minerals) 1 Liq Liq 15 Ml PO QAM 04/25/17 Reported Zofran (Ondansetron Hcl) 4 Mg Tab 4 Mg PO PRN PRN 03/14/17 Reported Roxicodone Ir (Oxycodone HCl) 5 Mg Tab 10 Mg PO Q6H PRN 03/14/17 Reported Roxicodone Ir (Oxycodone HCl) 5 Mg Tab 5 Mg PO Q6H PRN 03/14/17 Reported Vitamin B-1 (Thiamine HCl) 100 Mg Tab 100 Mg PO QAM 03/14/17 Reported Folic Acid 1 Mg Tab 1 Tab PO QAM 03/14/17 Reported Nicoderm Cq 14MG Patch (Nicotine) 14 Mg/24 Hr Dis 1 Patch TD DAILY 03/14/17 Reported Ascorbic Acid 500 Mg Tab 500 Mg PO QAM 03/14/17 Reported Tylenol (Acetaminophen) 500 Mg Tab 1,000 Mg PO BID PRN 30 03/08/17 Rx Miralax (Polyethylene) 17 Gm Pow 17 Gm PO Q6H PRN 30 03/08/17 Rx Slow-Mag Tab (Magnesium Chloride) 64 Mg Tabcr 64 Mg PO BID 30 03/08/17 Rx Vital Signs Weight (Kilograms): 60.09 Height (Feet): 5 Height (Inches): 11 Physical Exam General Appearance: WD/WN, no apparent distress Respiratory/Chest: Respiratory effort: no dyspnea Auscultation: breath sounds normal Cardiovascular: Apical Impulse: not displaced Heart Auscultation: RRR, normal S1 Abdomen: Bowel Sounds: normal Inspection & Palpation: soft, non-distended Assessment and Plan 51 yo presenting for EGD for high grade esophageal stricture
[2017-05-05 10:22] VITALS: BP 138/80; PULSE 66; TEMP 36.8; O2SAT 98; Ht 180.3 cm; Wt 60.1 kg
[2017-05-05 10:49] LABS: BASO % 0.3 %; BASO ABS # 0.03 K/uL (0-0.2); EOS % 7.7 %; HEMATOCRIT 34.7 % (42-52); IG% 0.3 %; LYMPH % 24.6 %; LYMPH ABS # 2.46 K/uL (1.2-3.4); MEAN CELL VOLUME 89.4 fL (80-100); MEAN CORPUSCULAR HEMOGLOBIN 30.4 pg (25-34); MEAN PLATELET VOLUME 8.6 fL (7.4-10.4); NEUT % 58.1 %; PLATELET COUNT 317 K/uL (130-400); RED BLOOD COUNT 3.88 M/uL (4.7-6.1); WHITE BLOOD COUNT 10.01 K/uL (4.8-10.8)
[2017-05-05 10:51] LABS: COMPLETE YES
[2017-05-05 10:58] LABS: PROTHROMBIN TIME (PATIENT) 10.7 SECONDS (9.0-12.0)
--- NOTE | 2017-05-05 13:13 | Discharge Instructions ---
Endoscopy Patient Instructions Date / Procedure(s) Performed May 05, 2017. EGD Allergy Information Coded Allergies: Penicillins (Verified Adverse Reaction, Mild, TIRED, 05/05/17) Discharge Date / Findings May 05, 2017. Esophageal stenosis-dilated and biopsied We will plan on increasing your prevacid to twice daily Repeat your procedure in 1 week for retreatment Provider Instructions Activity Restrictions - No exercising or heavy lifting for 24 hours. - Do not drink alcohol the day of the procedure. - Do not drive a car or operate machinery until the day after the procedure. - Do not make any important decisions or sign important papers in 24 hours after the procedure. Following Day: - Return to full activity which may include returning to work/school. Diet Start your diet with liquids and light foods (jello, soup, juice, toast). Then eat your usual diet if not nauseated. Treatment For Common After Affects For mild abdominal pain, bloating, or excessive gas: - Rest - Eat lightly - Lie on right side Follow-Up Information Follow-up with as scheduled Anesthesia Information What You Should Know You have had a procedure that required some medicine to reduce anxiety and discomfort. This treatment is called moderate sedation. After receiving the treatment, you may be sleepy, but you will be able to breathe on your own. The effects of the treatment may last for several hours. Follow these instructions along with Activity/Diet recommendations noted above: * Do NOT do anything where dizziness or clumsiness would be dangerous. * Rest quietly at home today, then you can be up and about tomorrow. * Have a responsible person stay with you the rest of today. * You may have had an I.V. today. If so, you may take the dressing off later today. Recommendations Call your doctor if: * Trouble breathing * Continuous vomiting for more than 24 hours * Temperature above 101 degrees * Severe abdominal pain or bloating * Pain not relieved by pain medicine ordered * There is increased drainage or redness from any incision * A large amount of rectal bleeding greater than 2-3 tablespoons. (If you had a polyp/s removed or have hemorrhoids, a small amount of blood - from the rectum is to be expected.) * You have any unanswered questions or concerns. IN THE EVENT OF A SERIOUS EMERGENCY, GO TO THE NEAREST EMERGENCY ROOM Your discharge instructions were prepared by provider Manjeet M. Craft. Patient Instructions Signature Page Aaron Chang Patient (or Guardian) Signature/Date: I have read and understand the instructions given to me by my caregivers. Caregiver/RN/Doctor Signature/Date: The above-named patient and/or guardian has received patient instructions on this date. + Original Patient Signature Page (only) stays with chart. Please make copy for patient.
--- NOTE | 2017-05-05 13:21 | GI REPORT ---
Procedure Date: 05/05/2017 12:15 PM Procedure: Upper GI endoscopy Indications: Dysphagia Medicines: General Anesthesia Complications: No immediate complications. Estimated blood loss: None. Estimated Blood Loss: Estimated blood loss: none. Procedure: Pre-Anesthesia Assessment: - Pre-Anesthesia Assessment: - Prior to the procedure, a History and Physical was performed, and patient medications, allergies and sensitivities were reviewed. The patient's tolerance of previous anesthesia was reviewed. Please see [email or web address] for complete details. - The risks and benefits of the procedure and the sedation options and risks were discussed with the patient. All questions were answered and informed consent was obtained. - Patient identification and proposed procedure were verified prior to the procedure by the physician and the nurse. The procedure was verified in the pre-procedure area in the procedure room. After obtaining informed consent, the endoscope was passed carefully and meticuously under direct vision and only advanced when the lumen was clearly identified, C02 insuflation was utilized throughout the entirity of the procedure. Throughout the procedure, the patient's blood pressure, pulse, and oxygen saturations were monitored continuously. After obtaining informed consent, the endoscope was passed under direct vision. Throughout the procedure, the patient's blood pressure, pulse, and oxygen saturations were monitored continuously. The scope was introduced through the mouth, and advanced to the second part of duodenum. The upper GI endoscopy was accomplished without difficulty. The patient tolerated the procedure well. Findings: One severe (stenosis; an endoscope cannot pass) benign-appearing, intrinsic stenosis was found 20 to 22 cm from the incisors. This measured 5 mm (inner diameter) x 1 cm (in length) and was traversed after dilation. A guidewire was placed under fluoroscopic guidance and the scope was withdrawn. Dilation was performed with a Savary dilator with mild resistance at 5 mm and 6 mm and moderate resistance at 7 mm. Post inspection after 7 mm appeared with an appropriate but non-complicated esophageal distruption. The stricture was biopisied. Mucosal changes including ringed esophagus, small-caliber esophagus and esophageal erosions were found in the entire esophagus. Biopsies were taken with a cold forceps for histology. The entire examined stomach was normal. The examined duodenum was normal. Impression: - Benign-appearing esophageal stenosis. Dilated. - Esophageal mucosal changes suspicious for eosinophilic esophagitis. Biopsied. - Normal stomach. - Normal examined duodenum. Recommendation: - Await pathology results. - Discharge patient to home (with escort). - Use Prevacid (lansoprazole) 30 mg PO BID. - Repeat the upper endoscopy in 1 week for retreatment. - Return to referring physician as previously scheduled. Manjeet Guy MD 05/05/2017 1:20:40 PM This report has been signed electronically. Note Initiated On: 05/05/2017 12:15 PM I attest to the content of the Intraoperative Record and orders documented therein, exceptions below
[2017-05-05 13:59] VITALS: BP 171/98; PULSE 73; TEMP 36.6; O2SAT 97
--- NOTE | 2017-05-05 14:03 | Anesthesiology Progress Note ---
Anesthesia Post Op Note Date & Time May 05, 2017 at 14:03 Vital Signs Pain Intensity: 4 Vital Signs Past 12 Hours Date Time Temp Pulse Resp B/P (MAP) Pulse Ox O2 Delivery O2 Flow Rate FiO2 05/05/17 13:46 164/94 05/05/17 13:46 36.6 05/05/17 13:43 71 16 05/05/17 13:43 71 16 97 05/05/17 13:41 165/89 05/05/17 13:38 73 16 99 05/05/17 13:38 71 16 05/05/17 13:37 71 14 100 05/05/17 13:37 69 14 05/05/17 13:36 153/90 05/05/17 13:33 164/91 05/05/17 13:32 80 20 05/05/17 13:32 84 20 92 05/05/17 13:31 134/103 05/05/17 13:27 66 14 05/05/17 13:27 67 14 100 05/05/17 13:26 67 16 145/83 100 05/05/17 13:26 67 16 05/05/17 13:21 70 16 05/05/17 13:21 70 16 145/89 100 05/05/17 13:16 70 12 139/87 99 05/05/17 13:16 70 12 05/05/17 13:11 73 14 137/83 100 05/05/17 13:11 36.6 74 16 137/83 100 Mask 10 05/05/17 13:11 72 14 05/05/17 10:22 36.8 66 16 138/80 (99) 98 Room Air Notes Mental Status: alert / awake / arousable, participated in evaluation Pt Amnestic to Procedure: Yes Nausea / Vomiting: adequately controlled Pain: adequately controlled Airway Patency, RR, SpO2: stable & adequate BP & HR: stable & adequate Hydration State: stable & adequate Anesthetic Complications: no major complications apparent
[2017-05-05 14:30] VITALS: BP 185/97; PULSE 82; TEMP 36.5; O2SAT 97
[2017-05-05 15:00] VITALS: BP 174/92; PULSE 68; TEMP 36.5; O2SAT 98
== END | disposition home or self-care (01) ==
LOC: C.ACU 09:43
PROVIDERS: ATTEND Internal Medicine
DX: R13.10 Dysphagia, unspecified (principal); K22.2 Esophageal obstruction; F17.200 Nicotine dependence, unspecified, uncomplicated; Z68.1 Body mass index [BMI] 19.9 or less, adult; Z88.0 Allergy status to penicillin; Z90.89 Acquired absence of other organs; Z98.890 Other specified postprocedural states

== ENCOUNTER → 2017-05-15 | Day surgery (SDC) | payer OTHER ==
[2017-05-10 12:18] VITALS: BMI 18.0
--- NOTE | 2017-05-10 16:03 | PAT Medication Instructions ---
Service Date May 10, 2017. Current Home Medication List Acetaminophen (Tylenol), 1,000 MG PO BID PRN for Pain Acetaminophen (Acetaminophen), 1,000 MG PO DAILY PRN for Pain Ascorbic Acid (Ascorbic Acid), 500 MG PO QAM Bisacodyl (Dulcolax), 1 SUPP [place] DAILY PRN for Constipation Ferrous Sulfate (Ferrous Drops), 325 MG PO LUNCH Folic Acid (Folic Acid), 1 TAB PO QAM Lansoprazole (Prevacid), 30 MG PO QAM Magnesium Chloride (Slow-Mag Tab), 64 MG PO BID Magnesium Hydroxide (Milk Of Magnesia), 30 ML PO UD PRN for Constipation Multiple Vitamins W/ Minerals (Multivitamin), 15 ML PO QAM Nicotine (Nicoderm Cq 14MG Patch), 1 PATCH TD DAILY Oxycodone Immediate Rel Tab (Roxicodone Ir), 10 MG PO Q6H PRN for Pain Polyethylene (Miralax), 17 GM PO Q6H PRN for Constipation Sodium Phosphate/Biphosphate (Fleet Enema), 1 EA TX DAILY PRN for Constipation Thiamine Hcl (Vitamin B-1), 100 MG PO QAM [Docusate/Senna], 20 ML PO BID Medication Instructions For Your Scheduled Surgery - Hold the following medications the morning of surgery: Ascorbic Acid (Ascorbic Acid), 500 MG PO QAM Bisacodyl (Dulcolax), 1 SUPP TX DAILY PRN for Constipation Ferrous Sulfate (Ferrous Drops), 325 MG PO LUNCH Folic Acid (Folic Acid), 1 TAB PO QAM Magnesium Chloride (Slow-Mag Tab), 64 MG PO BID Magnesium Hydroxide (Milk Of Magnesia), 30 ML PO UD PRN for Constipation Multiple Vitamins W/ Minerals (Multivitamin), 15 ML PO QAM Nicotine (Nicoderm Cq 14MG Patch), 1 PATCH TD DAILY Polyethylene (Miralax), 17 GM PO Q6H PRN for Constipation Sodium Phosphate/Biphosphate (Fleet Enema), 1 EA [place] DAILY PRN for Constipation Thiamine Hcl (Vitamin B-1), 100 MG PO QAM [Docusate/Senna], 20 ML PO BID - Take the following medications the morning of surgery with a sip of water: Oxycodone Immediate Rel Tab (Roxicodone Ir), 10 MG PO Q6H PRN for Pain (okay to take up to 4 hours prior to surgery if needed) Lansoprazole (Prevacid), 30 MG PO QAM Acetaminophen (Tylenol), 1,000 MG PO BID PRN for Pain (if needed) Acetaminophen (Acetaminophen), 1,000 MG PO DAILY PRN for Pain (okay to take up to 4 hours prior to surgery if needed) - Take the following medications as scheduled the night before surgery: [Docusate/Senna], 20 ML PO BID Sodium Phosphate/Biphosphate (Fleet Enema), 1 EA TX DAILY PRN for Constipation ( if needed) Polyethylene (Miralax), 17 GM PO Q6H PRN for Constipation (if needed) Oxycodone Immediate Rel Tab (Roxicodone Ir), 10 MG PO Q6H PRN for Pain (if needed) Magnesium Hydroxide (Milk Of Magnesia), 30 ML PO UD PRN for Constipation (if needed) Magnesium Chloride (Slow-Mag Tab), 64 MG PO BID Bisacodyl (Dulcolax), 1 SUPP TX DAILY PRN for Constipation (if needed) Acetaminophen (Tylenol), 1,000 MG PO BID PRN for Pain (if needed) Acetaminophen (Acetaminophen), 1,000 MG PO DAILY PRN for Pain (if needed) If you have any questions please call us at [phone] or [phone] or [phone]
[~2017-05-15] VITALS: Ht 180.3 cm; Wt 60.1 kg
[~2017-05-15] MED LIST changes: +ASCO500T3 PO; +CYAN100T6 PO; +EpHEDrine SULFATE INJ 50 MG/ML AMP IV PRN; -FENTANYL CITRATE INJ 50 MCG/1 ML 2 ML VIAL IV PRN; +FENTANYL CITRATE INJ 50 MCG/1 ML 2 ML VIAL ONE; +FLUC200T4 PO; +FOLIC ACID PO; -KETAMINE HCL INJ 50 MG/ML 10 ML VIAL ONE; -LABETALOL HCL IV 5 MG/ML 20ML IV PRN; +LIDOCAINE EXT; -ONDA4TAB65 PO; +ONDANSETRON INJ 2 MG/ML 2 ML VIAL ONE; +PHENYLEPHRINE HCL INJ 10 MG/ML VIAL ONE; -PROPOFOL IV EMULSION 10 MG/ML 100 ML VIAL IV ONE; +SALONPAS EXT; +ZOFRAN PO
[2017-05-15 09:23] VITALS: Ht 180.3 cm; Wt 60.1 kg
--- NOTE | 2017-05-15 09:55 | Endo History and Physical ---
History & Physical Date of Service: May 15, 2017. Chief Complaint: Dysphagia Referring Physician: History of Present Illness patient with known Esophageal stricture, last EGD was dilated with a Jazielary. Past Surgical History Hx Cardiac Surgery: No Hx Internal Defibrillator: No Hx Pacemaker: No Hx Abdominal Surgery: Yes (Hernia repair) Hx Post-Op Nausea and Vomiting: No Hx Cancer Surgery: No Hx Thoracic Surgery: No Hx Orthopedic: Yes (RT TROCH NAIL (HIP FX REPAIR)) Hx Urinary Tract Surgery: No Social History Smoking Status: Current Every Day Smoker Hx Substance Use: No Hx Alcohol Use: Yes (ALCOHOL ABUSE; 56 DRINKS/WEEK) Allergies Coded Allergies: Penicillins (Verified Adverse Reaction, Mild, TIRED, 05/10/17) Current Medications Reported Home Medications Medications Dose Route/Sig Max Daily Dose Days Date Category Dose Instructions Milk Of Magnesia (Magnesium Hydroxide) 30 Ml Susp 30 Ml PO UD PRN 04/25/17 Reported PER BOWEL PROTOCOL Dulcolax (Bisacodyl) 10 Mg Sup 1 Supp [place] DAILY PRN 04/25/17 Reported PER BOWEL PROTOCOL Fleet Enema (Sodium Phosphate/Biphosphate) Char 1 Ea [place] DAILY PRN 04/25/17 Reported PER BOWEL PROTOCOL [Docusate/Senna] 20 Ml PO BID 04/25/17 Reported COMPOUND MEDICATION - NO STRENGTH LISTED Prevacid (Lansoprazole) 30 Mg Capcr 30 Mg PO QAM 04/25/17 Reported Ferrous Drops (Ferrous Sulfate) 15 Mg/Ml Edwar 325 Mg PO LUNCH 04/25/17 Reported Acetaminophen 160 Mg/5 Ml Jonelle 1,000 Mg PO DAILY PRN 04/25/17 Reported Multivitamin (Multiple Vitamins W/ Minerals) 1 Liq Liq 15 Ml PO QAM 04/25/17 Reported Roxicodone Ir (Oxycodone HCl) 5 Mg Tab 10 Mg PO Q6H PRN 03/14/17 Reported Vitamin B-1 (Thiamine HCl) 100 Mg Tab 100 Mg PO QAM 03/14/17 Reported Folic Acid 1 Mg Tab 1 Tab PO QAM 03/14/17 Reported Nicoderm Cq 14MG Patch (Nicotine) 14 Mg/24 Hr Dis 1 Patch TD DAILY 03/14/17 Reported Ascorbic Acid 500 Mg Tab 500 Mg PO QAM 03/14/17 Reported Tylenol (Acetaminophen) 500 Mg Tab 1,000 Mg PO BID PRN 30 03/08/17 Rx Miralax (Polyethylene) 17 Gm Pow 17 Gm PO Q6H PRN 30 03/08/17 Rx Slow-Mag Tab (Magnesium Chloride) 64 Mg Tabcr 64 Mg PO BID 30 03/08/17 Rx Vital Signs Weight (Kilograms): 60.09 Height (Feet): 5 Height (Inches): 11 Date Time Temp Pulse Resp B/P (MAP) Pulse Ox O2 Delivery O2 Flow Rate FiO2 05/15/17 09:29 36.4 60 18 145/75 (98) 98 Room Air Physical Exam General Appearance: WD/WN Respiratory/Chest: Respiratory effort: no dyspnea, good air movement Cardiovascular: Heart Auscultation: RRR Abdomen: Bowel Sounds: normal Inspection & Palpation: soft, non-distended Assessment and Plan Patient is in stable condition for EGD with possible dilatation. He explained in details the risk and benefit, risk of bleeding and perforation and agreed.
--- NOTE | 2017-05-15 10:35 | Discharge Instructions ---
Endoscopy Patient Instructions Date / Procedure(s) Performed May 15, 2017. EGD Allergy Information Coded Allergies: Penicillins (Verified Adverse Reaction, Mild, TIRED, 05/10/17) Discharge Date / Findings May 15, 2017. Two esophageal strictures, dilated with CRE Balloon. Medication Instructions Reported Home Medications Medications Dose Route/Sig Max Daily Dose Days Date Category Dose Instructions Milk Of Magnesia (Magnesium Hydroxide) 30 Ml Susp 30 Ml PO UD PRN 04/25/17 Reported PER BOWEL PROTOCOL Dulcolax (Bisacodyl) 10 Mg Sup 1 Supp SD DAILY PRN 04/25/17 Reported PER BOWEL PROTOCOL Fleet Enema (Sodium Phosphate/Biphosphate) Char 1 Ea SD DAILY PRN 04/25/17 Reported PER BOWEL PROTOCOL [Docusate/Senna] 20 Ml PO BID 04/25/17 Reported COMPOUND MEDICATION - NO STRENGTH LISTED Prevacid (Lansoprazole) 30 Mg Capcr 30 Mg PO QAM 04/25/17 Reported Ferrous Drops (Ferrous Sulfate) 15 Mg/Ml Edwar 325 Mg PO LUNCH 04/25/17 Reported Acetaminophen 160 Mg/5 Ml Jonelle 1,000 Mg PO DAILY PRN 04/25/17 Reported Multivitamin (Multiple Vitamins W/ Minerals) 1 Liq Liq 15 Ml PO QAM 04/25/17 Reported Roxicodone Ir (Oxycodone HCl) 5 Mg Tab 10 Mg PO Q6H PRN 03/14/17 Reported Vitamin B-1 (Thiamine HCl) 100 Mg Tab 100 Mg PO QAM 03/14/17 Reported Folic Acid 1 Mg Tab 1 Tab PO QAM 03/14/17 Reported Nicoderm Cq 14MG Patch (Nicotine) 14 Mg/24 Hr Dis 1 Patch TD DAILY 03/14/17 Reported Ascorbic Acid 500 Mg Tab 500 Mg PO QAM 03/14/17 Reported Tylenol (Acetaminophen) 500 Mg Tab 1,000 Mg PO BID PRN 30 03/08/17 Rx Miralax (Polyethylene) 17 Gm Pow 17 Gm PO Q6H PRN 30 03/08/17 Rx Slow-Mag Tab (Magnesium Chloride) 64 Mg Tabcr 64 Mg PO BID 30 03/08/17 Rx Provider Instructions Activity Restrictions - No exercising or heavy lifting for 24 hours. - Do not drink alcohol the day of the procedure. - Do not drive a car or operate machinery until the day after the procedure. - Do not make any important decisions or sign important papers in 24 hours after the procedure. Following Day: - Return to full activity which may include returning to work/school. Diet Start your diet with liquids and light foods (jello, soup, juice, toast). Then eat your usual diet if not nauseated. Treatment For Common After Affects For mild abdominal pain, bloating, or excessive gas: - Rest - Eat lightly - Lie on right side Follow-Up Information Repeat EGD in 1 - 2 weeks for dilation. Follow-up with PMD as scheduled Anesthesia Information What You Should Know You have had a procedure that required some medicine to reduce anxiety and discomfort. This treatment is called moderate sedation. After receiving the treatment, you may be sleepy, but you will be able to breathe on your own. The effects of the treatment may last for several hours. Follow these instructions along with Activity/Diet recommendations noted above: * Do NOT do anything where dizziness or clumsiness would be dangerous. * Rest quietly at home today, then you can be up and about tomorrow. * Have a responsible person stay with you the rest of today. * You may have had an I.V. today. If so, you may take the dressing off later today. Recommendations Call your doctor if: * Trouble breathing * Continuous vomiting for more than 24 hours * Temperature above 101 degrees * Severe abdominal pain or bloating * Pain not relieved by pain medicine ordered * There is increased drainage or redness from any incision * A large amount of rectal bleeding greater than 2-3 tablespoons. (If you had a polyp/s removed or have hemorrhoids, a small amount of blood - from the rectum is to be expected.) * You have any unanswered questions or concerns. IN THE EVENT OF A SERIOUS EMERGENCY, GO TO THE NEAREST EMERGENCY ROOM Your discharge instructions were prepared by provider Mikki Flores. Patient Instructions Signature Page Aaron Chang Patient (or Guardian) Signature/Date: I have read and understand the instructions given to me by my caregivers. Caregiver/RN/Doctor Signature/Date: The above-named patient and/or guardian has received patient instructions on this date. + Original Patient Signature Page (only) stays with chart. Please make copy for patient.
--- NOTE | 2017-05-15 10:38 | Anesthesiology Progress Note ---
Anesthesia Post Op Note Date & Time May 15, 2017 at 10:37 Vital Signs Pain Intensity: 0 Vital Signs Past 12 Hours Date Time Temp Pulse Resp B/P (MAP) Pulse Ox O2 Delivery O2 Flow Rate FiO2 05/15/17 10:28 71 18 92/62 (72) 97 Room Air 05/15/17 09:29 36.4 60 18 145/75 (98) 98 Room Air Notes Mental Status: alert / awake / arousable, participated in evaluation Pt Amnestic to Procedure: Yes Nausea / Vomiting: adequately controlled Pain: adequately controlled Airway Patency, RR, SpO2: stable & adequate BP & HR: stable & adequate Hydration State: stable & adequate Anesthetic Complications: no major complications apparent
--- NOTE | 2017-05-15 10:40 | GI REPORT ---
Procedure Date: 05/15/2017 9:51 AM Procedure: Upper GI endoscopy Indications: Dysphagia, For therapy of esophageal stricture Medicines: Monitored Anesthesia Care Complications: No immediate complications. Estimated Blood Loss: Estimated blood loss: none. Procedure: Pre-Anesthesia Assessment: - Prior to the procedure, a History and Physical was performed, and patient medications and allergies were reviewed. The patient is competent. The risks and benefits of the procedure and the sedation options and risks were discussed with the patient. All questions were answered and informed consent was obtained. Patient identification and proposed procedure were verified by the physician and the nurse in the procedure room. Mental Status Examination: alert and oriented. Airway Examination: normal oropharyngeal airway and neck mobility. Respiratory Examination: clear to auscultation. CV Examination: normal. ASA Grade Assessment: III - A patient with severe systemic disease. After reviewing the risks and benefits, the patient was deemed in satisfactory condition to undergo the procedure. The anesthesia plan was to use monitored anesthesia care (MAC). Immediately prior to administration of medications, the patient was re-assessed for adequacy to receive sedatives. The heart rate, respiratory rate, oxygen saturations, blood pressure, adequacy of pulmonary ventilation, and response to care were monitored throughout the procedure. The physical status of the patient was re-assessed after the procedure. After obtaining informed consent, the endoscope was passed under direct vision. Throughout the procedure, the patient's blood pressure, pulse, and oxygen saturations were monitored continuously. The Scope was introduced through the mouth, and advanced to the second part of duodenum. The upper GI endoscopy was accomplished without difficulty. The patient tolerated the procedure well. Findings: Two severe (stenosis; an endoscope cannot pass) benign-appearing, intrinsic stenoses were found 22 cm and 42 from the incisors. The Z-line is at 44cm. The lower stenosis measured 6 mm (inner diameter) x less than one cm (in length) and the upper stenosis was around 8mm in diameter. A TTS dilator was passed through the scope. Dilation with an 8-9-10 mm CRE balloon (to a maximum balloon size of 10 mm) dilator followed by 10-11-12 up to 11 mm was performed for the upper stricture and regular scope traversed the stricture. The dilation site was examined following endoscope reinsertion and showed moderate improvement in luminal narrowing with adequate mucosal disruption. Biopsies were taken with a cold forceps for histology. Verification of patient identification for the specimen was done by the physician and nurse using the patient's name and date. The lower stricture was dilated with 8-9-10 mm CRE balloon (to a maximum balloon size of 9 mm). The ultrathin XP scope had to be used to traverse this stricture. The entire examined stomach was normal. The duodenal bulb and 2nd part of the duodenum were normal. Impression: - Two benign-appearing esophageal stenoses. Dilated. Biopsied. - Normal stomach. - Normal duodenal bulb and 2nd part of the duodenum. Recommendation: - Discharge patient to home. - Full liquid diet today then advance to chopped diet tomorrow. - Continue Prevacid (lansoprazole). - Repeat the upper endoscopy in 1 week for retreatment. - Await pathology results. - If biopsy results confirm Lymphocytic esophagitis, may need to consider Steroids (Prednisone or Budesonide) therapy. Mikki Flores MD 05/15/2017 10:40:22 AM This report has been signed electronically. Note Initiated On: 05/15/2017 9:51 AM I attest to the content of the Intraoperative Record and orders documented therein, exceptions below
[2017-05-15 11:02] VITALS: BP 131/83; PULSE 70; O2SAT 98
== END | disposition home or self-care (01) ==
LOC: C.GI 08:51
PROVIDERS: ATTEND Pediatrics
DX: K22.2 Esophageal obstruction (principal); K20.9 Esophagitis, unspecified; F17.200 Nicotine dependence, unspecified, uncomplicated

== ENCOUNTER 2017-06-09 17:39 | Emergency (ER) | payer OTHER ==
[~2017-06-09] VITALS: Ht 180.3 cm; Wt 64.0 kg
[~2017-06-09 17:39] MED LIST changes: -ASCO500T16 PO; -ATROPINE SULFATE 0.1 MG/ML 5ML SYR IV PRN; -BISA10SU3 PR; -EpHEDrine SULFATE INJ 50 MG/ML AMP IV PRN; -FENTANYL CITRATE INJ 50 MCG/1 ML 2 ML VIAL ONE; -FLV1 PO; -LIDOCAINE HCL 2% 2 ML VIAL (20MG/ML) ONE; -MIDAZOLAM HCL 1 MG/ML 2ML VIAL ONE; -ONDANSETRON INJ 2 MG/ML 2 ML VIAL IV PRN; -ONDANSETRON INJ 2 MG/ML 2 ML VIAL ONE; -PHENYLEPHRINE HCL INJ 10 MG/ML VIAL ONE; -PROPOFOL IV EMULSION 10 MG/ML 20 ML VIAL IV ONE; -SODIUM CHLORIDE 0.9% 500ML 500 ML IV ONE; -THIA100T11 PO
[2017-06-09 17:56] VITALS: TEMP 36.3; Ht 180.3 cm; Wt 64.0 kg
[2017-06-09] MEDS ORDERED: MULTI-VITAMIN INFUSION INJ 10 ML, THIAMINE HCL INJ 100 MG, FoLIC ACID INJ 1 MG in SODIU... IV STA (18:09)
--- NOTE | 2017-06-09 18:11 | EMERGENCY ROOM VISIT NOTE ---
History Report prepared by Renetta: Mark Eason Under the Supervision of: Dr. Patrick Henry M.D. First contact with patient: 18:00 Chief Complaint: LEG PAIN,LEG INJURY Stated Complaint: BILAT. HIP PAIN & KNEE PAIN History of Present Illness The patient is a 51 year old male who presents to the Emergency Room with complaints of worsening bilateral hip pain that started 2 weeks ago. He states that he had a fall in a park in February, and had surgery on his left hip. The patient says that he does not know why the pain came on again 2 weeks ago. He notes that everything hurts from his hips down to his knees, but the right hip hurts more than the left hip. He says that his knees hurt as well. The patient denies any falls since the one in February however. He adds that he has been having back pain too, which has been going on for a while. He says that he has been having urinary symptoms and bowel movement problems as well, with increased frequency of urination and of bowel movements, with diarrhea. He notes that he is on a medication for his bowel movements but he stopped taking them. The patient says that he drinks alcohol to cope with his pain, and drinks a "12-pack per day". He states that his last drink was 4 hours ago. The patient is not on a blood thinner. He denies any chest pain, shortness of breath, vomiting, hematochezia, or abdominal pain. He states that he has a history of being homeless, but now has a home. Source of History: patient Onset: 2 weeks ago Position: other (bilateral hips) Quality: other (pain) Timing: worsening Associated Symptoms: + back pain, + diarrhea (increased bowel movement frequency), + urinary symptoms, No chest pain, No SOB, No vomiting, No abdominal pain, No hematochezia Note: Associated symptoms: Denies any falls since February. Review of Systems See HPI for pertinent positives & negatives. A total of 10 systems reviewed and were otherwise negative. Past Medical & Surgical Medical Problems: (1) Alcoh Dep Nec/Nos-Unspec (2) Chest pain (3) Fever (4) Fracture Calcaneus-Close (5) Hip fracture (6) Hypertension Nos (7) Hyponatremia (8) Hypoxia (9) Pleural effusion (10) Sprain Of Ankle Nos Social History Problems: (1) Alcohol abuse Old medical records were reviewed. Nurse's notes were reviewed and I agree with. Family History FHx: cancer Social History Smoking Status: Former Smoker Alcohol Use: heavy Drug Use: none Marital Status: single Housing Status: other (not homeless) Occupation Status: unemployed Current/Historical Medications Scheduled Ascorbic Acid (Vitamin C), 1 TAB PO DAILY Cyanocobalamin (Vitamin B12 100 Mcg), 100 MCG PO DAILY Scheduled PRN Acetaminophen (Tylenol), 1,000 MG PO BID PRN for Headache or Pain Allergies Coded Allergies: Penicillins (Verified Adverse Reaction, Mild, TIRED, 05/24/17) Physical Exam Vital Signs Date Time Temp Pulse Resp B/P (MAP) Pulse Ox O2 Delivery O2 Flow Rate FiO2 06/09/17 22:30 71 18 163/98 98 Room Air 06/09/17 19:50 76 18 159/100 96 Room Air 06/09/17 17:56 36.3 76 18 171/100 97 Room Air Physical Exam General: Non-ill appearing middle-aged male, smells of alcohol, answers questions appropriately. HEENT: Normal cephalic atraumatic. Pupils are equal round and reactive to light. Extraocular movements are intact. Oropharynx is pink with moist mucous membranes. No swelling of the mouth lips or tongue. Neck: Supple with a midline trachea. No meningeal signs or stiffness, no JVD or bruits. No Stridor. Chest: Clear to auscultation bilaterally. No wheezes or rhonchi. No increased work of breathing. Heart: regular rate and rhythm. Abdomen: Soft nontender, nondistended without rebound guarding or rigidity. Extremities: Right hip is not red or warm, well-healed incisions. No calf tenderness or assymetry Spine/Back. Non tender to palpation. No CVA tenderness Skin: Good turgor without rashes. Neurologic exam: Cranial nerves two through 12 are intact. Motor and sensation are intact and symmetrical throughout. Medical Decision & Procedures ER Provider Diagnostic Interpretation: Radiology results as stated below per my review and radiologist interpretation: PELVIS/BILATERAL HIP 2 VIEWS CLINICAL HISTORY: r>L hip pain COMPARISON STUDY: None. FINDINGS: The bones are osteopenic. Postoperative changes within the right hip with an intramedullary femoral anastasiia and interlocking femoral neck pin transfixing old, healed fracture. There is heterotopic ossification within the right hip. No acute fracture dislocation within the pelvis or hips. The hardware appears intact. Mild osteoarthritis within the bilateral hips. IMPRESSION: 1. No acute fracture or dislocation within the pelvis or hips. 2. Internal fixation of an old, healed right hip fracture. The hardware appears intact. Electronically signed by: Jigar Cassidy M.D. 06/09/2017 9:23 PM Dictated Date/Time: 06/09/2017 9:20 PM BILATERAL LOWER EXTREMITY VENOUS DOPPLER HISTORY: Bilateral leg pain. COMPARISON STUDY: None. FINDINGS: There is normal compressibility, flow, and augmentation within the bilateral lower extremity deep venous systems. IMPRESSION: No DVT within the right or left lower extremity. Electronically signed by: Jigar Cassidy M.D. 06/09/2017 10:07 PM Dictated Date/Time: 06/09/2017 10:06 PM Laboratory Results 06/09/17 18:29 Red Blood Count 4.65, Mean Corpuscular Volume 88.6, Mean Corpuscular Hemoglobin 30.5, Mean Corpuscular Hemoglobin Concent 34.5, Mean Platelet Volume 8.1, Neutrophils (%) (Auto) 67.4, Lymphocytes (%) (Auto) 23.8, Monocytes (%) (Auto) 7.0, Eosinophils (%) (Auto) 1.2, Basophils (%) (Auto) 0.3, Neutrophils # (Auto) 6.08, Lymphocytes # (Auto) 2.15, Monocytes # (Auto) 0.63, Eosinophils # (Auto) 0.11, Basophils # (Auto) 0.03 06/09/17 18:29 Test 06/09/17 18:29 06/09/17 18:31 White Blood Count 9.03 K/uL (4.8-10.8) Red Blood Count 4.65 M/uL (4.7-6.1) Hemoglobin 14.2 g/dL (14.0-18.0) Hematocrit 41.2 % (42-52) Mean Corpuscular Volume 88.6 fL (80-100) Mean Corpuscular Hemoglobin 30.5 pg (25-34) Mean Corpuscular Hemoglobin Concent 34.5 g/dl (32-36) Platelet Count 111 K/uL (130-400) Mean Platelet Volume 8.1 fL (7.4-10.4) Neutrophils (%) (Auto) 67.4 % Lymphocytes (%) (Auto) 23.8 % Monocytes (%) (Auto) 7.0 % Eosinophils (%) (Auto) 1.2 % Basophils (%) (Auto) 0.3 % Neutrophils # (Auto) 6.08 K/uL (1.4-6.5) Lymphocytes # (Auto) 2.15 K/uL (1.2-3.4) Monocytes # (Auto) 0.63 K/uL (0.11-0.59) Eosinophils # (Auto) 0.11 K/uL (0-0.5) Basophils # (Auto) 0.03 K/uL (0-0.2) RDW Standard Deviation 47.2 fL (36.4-46.3) RDW Coefficient of Variation 14.9 % (11.5-14.5) Immature Granulocyte % (Auto) 0.3 % Immature Granulocyte # (Auto) 0.03 K/uL (0.00-0.02) Anion Gap 7.0 mmol/L (3-11) Est Creatinine Clear Calc Drug Dose 122.2 ml/min Estimated GFR () 130.5 Estimated GFR (Non- 112.6 BUN/Creatinine Ratio 8.1 (10-20) Calcium Level 8.1 mg/dl (8.5-10.1) Magnesium Level 2.1 mg/dl (1.8-2.4) Total Bilirubin 0.3 mg/dl (0.2-1) Direct Bilirubin < 0.1 mg/dl (0-0.2) Aspartate Amino Transf (AST/SGOT) 26 U/L (15-37) Alanine Aminotransferase (ALT/SGPT) 17 U/L (12-78) Alkaline Phosphatase 149 U/L (45-117) Total Protein 7.4 gm/dl (6.4-8.2) Albumin 3.6 gm/dl (3.4-5.0) Lipase 198 U/L (73-393) Ethyl Alcohol mg/dL 364.0 mg/dl (0-3) Bedside D-Dimer > 450 ng/mlFEU (0-450) Laboratory studies as stated above per my review. Medications Administered Medications (Trade) Dose Ordered Sig/Jaylene Route Start Time Stop Time Status Last Admin Dose Admin Multivitamins 10 ml/Thiamine HCl 100 mg/Folic Acid 1 mg/Sodium Chloride 1,011.2 ml @ 500 mls/ hr Q2H2M STAT IV 06/09/17 18:09 06/09/17 20:10 DC 06/09/17 19:39 500 MLS/HR Ketorolac Tromethamine (Toradol Inj) 15 mg NOW STAT IV 06/09/17 18:12 06/09/17 18:13 DC 06/09/17 18:43 15 MG Morphine Sulfate (MoRPHine SULFATE INJ) 2 mg NOW STAT IV 06/09/17 19:05 06/09/17 19:07 DC 06/09/17 19:12 2 MG Ibuprofen (Advil Tab) 400 mg STK-MED ONCE .ROUTE 06/09/17 23:11 06/09/17 23:12 DC 06/09/17 23:11 400 MG ED Course 1800: Past medical records reviewed. The patient was evaluated in room B6, and a complete history and physical examination were performed. 1808: Ordered Multivitamins 10 ml/Thiamine HCl 100 mg/Folic Acid 1 mg/Sodium Chloride 1,011.2 ml @ 500 mls/hr IV. 1811: Ordered Toradol Inj 15 mg IV. 1903: I reevaluated the patient and he is still complaining of pain. He is going to x-ray. 1904: Ordered Morphine Sulfate Inj 2 mg IV. 2239: Upon reevaluation, the patient is resting. I discussed the results and treatment plan with him. He verbalized agreement of the treatment plan. The patient was discharged home. Medical Decision Differentials include fracture, infection, musculoskeletal, electrolyte or metabolic abnormality, alcohol-related complication, DVT. This patient comes in as described above. He is complaining of bilateral hip pain. He did fracture his hip in February and has had pain off and on since. He says that he has been drinking alcohol to help with the pain. He does have a history of alcohol abuse and says he had 2 drinks today. He does smell of alcohol but does not appear to be overtly intoxicated . He is not shaky and does not appear to be withdrawing. He denies any vomiting or recurrent trauma. He has no numbness weakness the leg looks normal . There is nothing to suggest compartment syndrome or neurovascular compromise. His calves are soft and does not suggest DVT he has bounding peripheral pulses incisions are healing well. IV access established and given his alcohol abuse history, he was given a banana bag and we did check some electrolytes and blood work. X- rays were obtained as well as a d-dimer. X-rays were unremarkable. Besides his alcohol been significantly elevated in the 300s, blood work is unremarkable and he has no electrolyte or metabolic abnormalities. Ultrasounds of his legs were unremarkable which were obtained because his d-dimer was elevated. He has no chest pain or shortness of breath. He did receive IV Toradol was complaining that he still had pain and was subsequently given 2 mg of morphine IV prior to get his alcohol level back. Given his strong use alcohol, I do not think he needs narcotics. He does feel up to go home, he is going to take a cab home and not drive. He can use ibuprofen for pain. Return if: increasing pain, worsening of symptoms, fever or chills, any new problems or concerns. He is happy with plan and discharged home. Medication Reconcilliation Current Medication List: was personally reviewed by me Blood Pressure Screening Patient's blood pressure: Elevated blood pressure Blood pressure disposition: Elevated BP felt to be situational Impression Primary Impression: Hip pain, right Additional Impressions: Alcohol abuse Bilateral leg pain Alcohol intoxication Scribe Attestation The scribe's documentation has been prepared under my direction and personally reviewed by me in its entirety. I confirm that the note above accurately reflects all work, treatment, procedures, and medical decision making performed by me. Departure Information Dispostion Home / Self-Care Referrals Rajesh Carlos M.D. (PCP) Patient Instructions My [facility] Additional Instructions Rest Drink plenty of fluids Use Ibuprofen 400 mg every 6 hours as needed. Take with food. Return if: Worsening of symptoms, numbness or weakness, fever or chills, any new problems or concerns Problem Qualifiers
[2017-06-09] MEDS ORDERED: KETOROLAC TROMETHAMINE 30 MG/ML VIAL IV STA (18:12)
[2017-06-09 18:44] LABS: BASO % 0.3 %; BASO ABS # 0.03 K/uL (0-0.2); COMPLETE YES; EOS % 1.2 %; HEMATOCRIT 41.2 % (42-52); IG% 0.3 %; LYMPH % 23.8 %; LYMPH ABS # 2.15 K/uL (1.2-3.4); MEAN CELL VOLUME 88.6 fL (80-100); MEAN CORPUSCULAR HEMOGLOBIN 30.5 pg (25-34); MEAN CORPUSCULAR HGB CONC 34.5 g/dl (32-36); MEAN PLATELET VOLUME 8.1 fL (7.4-10.4); NEUT % 67.4 %; PLATELET COUNT 111 K/uL (130-400); RED BLOOD COUNT 4.65 M/uL (4.7-6.1); WHITE BLOOD COUNT 9.03 K/uL (4.8-10.8)
[2017-06-09 19:02] LABS: ALT/SGPT 17 U/L (12-78); BLOOD UREA NITROGEN 5 mg/dl (7-18); BUN/CREATININE RATIO 8.1 (10-20); CALCIUM 8.1 mg/dl (8.5-10.1); CARBON DIOXIDE 29 mmol/L (21-32); CHLORIDE 106 mmol/L (98-107); CREATININE 0.64 mg/dl (0.60-1.40); GLUCOSE 89 mg/dl (70-99); MAGNESIUM 2.1 mg/dl (1.8-2.4); POTASSIUM 3.8 mmol/L (3.5-5.1); SODIUM 142 mmol/L (136-145)
[2017-06-09 19:05] LABS: ALKALINE PHOSPHATASE 149 U/L (45-117); AST/SGOT 26 U/L (15-37)
[2017-06-09] MEDS ORDERED: MoRPHine SULFATE 2 MG/ML CARP IV STA (19:05)
[2017-06-09] MEDS ORDERED: ACET-1256 PO (19:24)
--- NOTE | 2017-06-09 21:25 | DIAGNOSTIC IMAGING REPORT ---
PELVIS/BILATERAL HIP 2 VIEWS CLINICAL HISTORY: r>L hip pain COMPARISON STUDY: None. FINDINGS: The bones are osteopenic. Postoperative changes within the right hip with an intramedullary femoral anastasiia and interlocking femoral neck pin transfixing old, healed fracture. There is heterotopic ossification within the right hip. No acute fracture dislocation within the pelvis or hips. The hardware appears intact. Mild osteoarthritis within the bilateral hips. IMPRESSION: 1. No acute fracture or dislocation within the pelvis or hips. 2. Internal fixation of an old, healed right hip fracture. The hardware appears intact. Electronically signed by: Jigar Cassidy M.D. 06/09/2017 9:23 PM Dictated Date/Time: 06/09/2017 9:20 PM
--- NOTE | 2017-06-09 22:08 | DIAGNOSTIC IMAGING REPORT ---
BILATERAL LOWER EXTREMITY VENOUS DOPPLER HISTORY: Bilateral leg pain. COMPARISON STUDY: None. FINDINGS: There is normal compressibility, flow, and augmentation within the bilateral lower extremity deep venous systems. IMPRESSION: No DVT within the right or left lower extremity. Electronically signed by: Jigar Cassidy M.D. 06/09/2017 10:07 PM Dictated Date/Time: 06/09/2017 10:06 PM
[2017-06-09 22:30] VITALS: BP 163/98; PULSE 71; O2SAT 98
[2017-06-09] MEDS ORDERED: IBUPROFEN 200 MG TAB ONE (23:11)
== END 2017-06-09 23:16 | disposition home or self-care (01) ==
LOC: EDBD 17:39 → C.EDB 17:40
DX: M25.551 Pain in right hip (principal); M25.552 Pain in left hip; M79.604 Pain in right leg; M79.605 Pain in left leg; F10.129 Alcohol abuse with intoxication, unspecified; Y90.8 Blood alcohol level of 240 mg/100 ml or more; I10 Essential (primary) hypertension; Z87.81 Personal history of (healed) traumatic fracture; Z87.828 Personal history of other (healed) physical injury and trauma; Z87.891 Personal history of nicotine dependence; Z79.899 Other long term (current) drug therapy; Z88.0 Allergy status to penicillin; Z80.9 Family history of malignant neoplasm, unspecified

== ENCOUNTER 2017-06-13 00:32 | Observation (INO) | payer OTHER ==
[~2017-06-13] VITALS: Ht 180.3 cm; Wt 61.4 kg
[2017-06-13] VITALS (9 sets, daily range): BP systolic 128–204; BP diastolic 82–105; PULSE 71–86; TEMP 36.5–36.9; O2SAT 94–100; Ht 180.3 cm; Wt 61.4 kg
[~2017-06-13 00:32] MED LIST changes: +ACET-1256 PO; -ACET160S3 PO; -DOCUSATE/SENNA PO; -FERR15DR5 PO; -FLUC200T4 PO; -FOLIC ACID PO; -LANS30CA12 PO; -LIDOCAINE EXT; -MOML PO; -MRLP17X PO; -MULT1LIQ6 PO; -NICO14DI31 TD; -OXYC1TAB3 PO; -SALONPAS EXT; -SLWMEC PO; -SODIENE PR; -TYLOTC500 PO; -ZOFRAN PO
[2017-06-13] MEDS ORDERED: SODIUM CHLORIDE 0.9% 1000ML 1,000 ML IV STA ×2 (01:05)
[2017-06-13] MEDS ORDERED: ONDANSETRON INJ 2 MG/ML 2 ML VIAL IV STA (01:05)
[2017-06-13] MEDS ORDERED: OPTIRAY 320 IV PRN (01:15)
--- NOTE | 2017-06-13 01:36 | EMERGENCY ROOM VISIT NOTE ---
History Report prepared by Renetta: Jim Ellis Under the Supervision of: Dr. Austyn Trinidad M.D. First contact with patient: 01:02 Chief Complaint: WEAKNESS Stated Complaint: WEAKNESS/FLULIKE SYMPTOMS Nursing Triage Summary: Patient reports that today when he woke up this morning around 0800 he fell down. Patient got up and tried to walk and kept falling. Patient reports that he feels weak and that his "legs don't work." Patient lives alone and reports he was fine and able to ambulate without difficultly last night when he went to bed. Denies and LOC with any of his falls.Denies dizziness or light headedness. Denies chest pain or shortness of breath. Denies numbness or tingling. History of Present Illness The patient is a 51 year old male who presents to the Emergency Room with complaints of constant weakness starting this morning around 0800 when he woke up. The patient states that he is having weakness in his legs and having difficulty walking since it feels like he is being pulled to the side. He feels like he cannot keep his balance, though he does not feel like the room is not spinning. He states that this morning he got up to go to the bathroom, and he fell to the side. The patient states that something similar happened in February with the same sensation, and he fell and broke his hip. He notes that he has a couple drinks of alcohol per day, though he never has withdrawals. The patient states that he is currently a little bit nauseous. He denies any abdominal pain , fevers, chills, cough, and congestion. He states that he used to use a walker for stability after breaking his hip, though he does not use it anymore. Source of History: patient Onset: this morning Position: other (global) Quality: other (weakness) Timing: constant Associated Symptoms: + nausea, No fevers, No chills, No cough, No abdominal pain Note: Associated symptoms: difficulty walking Review of Systems See HPI for pertinent positives and negatives. A total of ten systems were reviewed and were otherwise negative. Past Medical & Surgical Medical Problems: (1) Alcoh Dep Nec/Nos-Unspec (2) Balance disorder (3) Chest pain (4) Fever (5) Fracture Calcaneus-Close (6) Hip fracture (7) Hypertension Nos (8) Hyponatremia (9) Hypoxia (10) Pleural effusion (11) Sprain Of Ankle Nos Social History Problems: (1) Alcohol abuse Family History FHx: cancer Social History Smoking Status: Former Smoker Alcohol Use: heavy Drug Use: none Marital Status: single Housing Status: other Occupation Status: unemployed Current/Historical Medications Scheduled Ascorbic Acid (Vitamin C), 1 TAB PO DAILY Cyanocobalamin (Vitamin B12 100 Mcg), 100 MCG PO DAILY Scheduled PRN Acetaminophen (Tylenol), 1,000 MG PO BID PRN for Headache or Pain Allergies Coded Allergies: Penicillins (Verified Adverse Reaction, Mild, TIRED, 06/13/17) Physical Exam Vital Signs Date Time Temp Pulse Resp B/P (MAP) Pulse Ox O2 Delivery O2 Flow Rate FiO2 06/13/17 05:26 73 16 178/100 96 Room Air 06/13/17 04:06 87 06/13/17 03:30 75 18 184/119 96 Room Air 06/13/17 01:57 75 184/109 06/13/17 00:47 96 Room Air 06/13/17 00:41 36.9 85 179/130 96 Room Air 06/13/17 00:39 84 Physical Exam GENERAL: Awake, alert, fatigued-appearing, in no distress HENT: Dry cracked mucous membranes. Oropharynx otherwise unremarkable. Normocephalic, atraumatic. EYES: Normal conjunctiva. Sclera non-icteric. NECK: Supple. No nuchal rigidity. FROM. No JVD. RESPIRATORY: Clear to auscultation. CARDIAC: Regular rate, normal rhythm. Extremities warm and well perfused. Pulses equal. ABDOMEN: Soft, non-distended. No tenderness to palpation. No rebound or guarding. No masses. RECTAL: Deferred. MUSCULOSKELETAL: Chest examination reveals no tenderness. The back is symmetrical on inspection without obvious abnormality. There is no CVA tenderness to palpation. No joint edema. LOWER EXTREMITIES: Calves are equal size bilaterally and non-tender. No edema. No discoloration. NEURO: Bilateral dysmetria with finger to nose. Difficulty with alternating palms. Otherwise no gross motor deficits. SILT x 4 ext. SKIN: No rash or jaundice noted. Medical Decision & Procedures ER Provider Diagnostic Interpretation: Radiology results as stated below per my review and radiologist interpretation: There is contamination on both exams. CTA HEAD: There is a short segment of decreased attenuation in anterior left M2 branch about image 217/8 in the sylvian fissure. Distal to this, there is perfusion of more distal left MCA branches including distal to this area of decreased attenuation. May represent stenosis/short segment thrombosis of left MCA in the sylvian fissure; this is also seen on CTA neck, I: 495/9 of that study. Correlate for left MCA symptoms. Otherwise, no evidence for large vessel occlusion or other vascular etiology for patient's symptoms identified. Incidentals include right RACK PULLER. No intracranial hemorrhage on noncontrast CT head. Chronic appearing ischemic changes. CTA NECK: No dissection. Atherosclerotic changes. No hemodynamically significant ICA stenosis appreciated. See above for discussion of left M2 branch. Radiologist: Rajesh Hobbs M.D. X-ray: Per my interpretation: Chest One View: Normal mediastinum. No gross infiltrates. Laboratory Results 06/13/17 01:32 Red Blood Count 4.49, Mean Corpuscular Volume 86.0, Mean Corpuscular Hemoglobin 30.5, Mean Corpuscular Hemoglobin Concent 35.5, Mean Platelet Volume 8.8, Neutrophils (%) (Auto) 68.0, Lymphocytes (%) (Auto) 15.1, Monocytes (%) (Auto) 16.5, Eosinophils (%) (Auto) 0.0, Basophils (%) (Auto) 0.1, Neutrophils # (Auto ) 5.00, Lymphocytes # (Auto) 1.11, Monocytes # (Auto) 1.21, Eosinophils # (Auto ) 0.00, Basophils # (Auto) 0.01 06/13/17 01:32 Test 06/13/17 01:32 06/13/17 03:32 06/13/17 05:04 White Blood Count 7.35 K/uL (4.8-10.8) Red Blood Count 4.49 M/uL (4.7-6.1) Hemoglobin 13.7 g/dL (14.0-18.0) Hematocrit 38.6 % (42-52) Mean Corpuscular Volume 86.0 fL (80-100) Mean Corpuscular Hemoglobin 30.5 pg (25-34) Mean Corpuscular Hemoglobin Concent 35.5 g/dl (32-36) Platelet Count 89 K/uL (130-400) Mean Platelet Volume 8.8 fL (7.4-10.4) Neutrophils (%) (Auto) 68.0 % Lymphocytes (%) (Auto) 15.1 % Monocytes (%) (Auto) 16.5 % Eosinophils (%) (Auto) 0.0 % Basophils (%) (Auto) 0.1 % Neutrophils # (Auto) 5.00 K/uL (1.4-6.5) Lymphocytes # (Auto) 1.11 K/uL (1.2-3.4) Monocytes # (Auto) 1.21 K/uL (0.11-0.59) Eosinophils # (Auto) 0.00 K/uL (0-0.5) Basophils # (Auto) 0.01 K/uL (0-0.2) RDW Standard Deviation 45.4 fL (36.4-46.3) RDW Coefficient of Variation 14.8 % (11.5-14.5) Immature Granulocyte % (Auto) 0.3 % Immature Granulocyte # (Auto) 0.02 K/uL (0.00-0.02) Platelet Estimate DECREASED Red Blood Cell Morphology Unremarkable Anion Gap 8.0 mmol/L (3-11) Est Creatinine Clear Calc Drug Dose 140.9 ml/min Estimated GFR () 134.9 Estimated GFR (Non- 116.4 BUN/Creatinine Ratio 5.8 (10-20) Calcium Level 8.9 mg/dl (8.5-10.1) Total Bilirubin 0.8 mg/dl (0.2-1) Direct Bilirubin 0.2 mg/dl (0-0.2) Aspartate Amino Transf (AST/SGOT) 32 U/L (15-37) Alanine Aminotransferase (ALT/SGPT) 19 U/L (12-78) Alkaline Phosphatase 138 U/L (45-117) Troponin I < 0.015 ng/ml (0-0.045) Total Protein 7.5 gm/dl (6.4-8.2) Albumin 3.7 gm/dl (3.4-5.0) Lipase 140 U/L (73-393) Ethyl Alcohol mg/dL < 3.0 mg/dl (0-3) Urine Color YELLOW Urine Appearance CLEAR (CLEAR) Urine pH 8.0 (4.5-7.5) Urine Specific Newell 1.028 (1.000-1.030) Urine Protein NEG (NEG) Urine Glucose (UA) NEG (NEG) Urine Ketones NEG (NEG) Urine Occult Blood NEG (NEG) Urine Nitrite NEG (NEG) Urine Bilirubin NEG (NEG) Urine Urobilinogen NEG (NEG) Urine Leukocyte Esterase NEG (NEG) Urine Opiates Screen NEG (NEG) Urine Methadone, Qualitative NEG (NEG) Urine Barbiturates NEG (NEG) Urine Phencyclidine (PCP) Level NEG (NEG) Ur Amphetamine/Methamphetamine NEG (NEG) MDMA (Ecstasy) Screen NEG (NEG) Urine Benzodiazepines Screen NEG (NEG) Urine Cocaine Metabolite NEG (NEG) Urine Marijuana (THC) NEG (NEG) Laboratory results reviewed by me Medications Administered Medications (Trade) Dose Ordered Sig/Jaylene Route Start Time Stop Time Status Last Admin Dose Admin Sodium Chloride 1,000 ml @ 999 mls/hr Q1H1M STAT IV 06/13/17 01:05 06/13/17 02:05 DC 06/13/17 01:24 999 MLS/HR Ondansetron HCl (Zofran Inj) 4 mg NOW STAT IV 06/13/17 01:05 06/13/17 01:12 DC 06/13/17 01:23 4 MG Potassium Chloride (Klor-Con M10) 40 meq NOW STAT PO 06/13/17 05:04 06/13/17 05:07 DC 06/13/17 05:48 40 MEQ ECG Indication: weakness Rate (beats per minute): 72 Rhythm: normal sinus Findings: no acute ischemic change, other (normal axis) ED Course 0102: The patient was evaluated in room A3. A complete history and physical exam was performed. 0431: I reevaluated the patient, and I discussed the treatment plan with him 0445: I discussed the patient with Christine Marin - he will evaluate the patient for further treatment. Medical Decision I reviewed the patient's past medical history, medications, and the nursing notes as described above. Differential diagnoses include: stroke, vertigo, dehydration, electrolyte abnormality, pneumonia, bronchitis, and UTI The patient is a 51-year-old gentleman with a past medical history of hypertension, alcohol use, hip fracture in the setting of intoxication presents to emergency department with persistent difficulty with walking feeling like he is getting pulled to one side since waking this morning. History of present illness. Arrival the patient is in no acute distress, afebrile with stable vital signs. On exam he does have dysmetria bilaterally with finger to nose however he is uncertain if this is new or not. He also has difficulty with alternating palms. CT CTA of the head and neck shows a question of a left MCA thrombus versus stenosis however no evidence of posterior infarct. Labs otherwise unremarkable. CXR negative. Will require admission for further stroke rule out. Given LKW > 24 hours HEARING SCREENER no indication for stroke activation. Case was discussed with Christine Marin hospitalist, will admit the patient for further management. Medication Reconcilliation Current Medication List: was personally reviewed by me Blood Pressure Screening Patient's blood pressure: Elevated blood pressure Monitored by the hospitalist Consults Time Called: 043 Consulting Physician: Christine Marin Returned Call: [phone] I discussed the patient with Christine Marin - he will evaluate the patient for further treatment. Impression Primary Impression: Ataxia Scribe Attestation The scribe's documentation has been prepared under my direction and personally reviewed by me in its entirety. I confirm that the note above accurately reflects all work, treatment, procedures, and medical decision making performed by me. Departure Information Dispostion Being Evaluated By Hospitalist Referrals Rajesh Carlos M.D. (PCP) Patient Instructions My [facility]
[2017-06-13 01:43] LABS: HEMATOCRIT 38.6 % (42-52); MEAN CORPUSCULAR HEMOGLOBIN 30.5 pg (25-34); MEAN CORPUSCULAR HGB CONC 35.5 g/dl (32-36); RED BLOOD COUNT 4.49 M/uL (4.7-6.1); WHITE BLOOD COUNT 7.35 K/uL (4.8-10.8)
[2017-06-13 02:00] LABS: ALT/SGPT 19 U/L (12-78); BLOOD UREA NITROGEN 3 mg/dl (7-18); BUN/CREATININE RATIO 5.8 (10-20); CALCIUM 8.9 mg/dl (8.5-10.1); CARBON DIOXIDE 26 mmol/L (21-32); CHLORIDE 100 mmol/L (98-107); CREATININE 0.59 mg/dl (0.60-1.40); GLUCOSE 101 mg/dl (70-99); POTASSIUM 3.2 mmol/L (3.5-5.1); SODIUM 134 mmol/L (136-145)
[2017-06-13 02:05] LABS: ALKALINE PHOSPHATASE 138 U/L (45-117); AST/SGOT 32 U/L (15-37)
[2017-06-13 02:09] LABS: BASO % 0.1 %; BASO ABS # 0.01 K/uL (0-0.2); COMPLETE YES; IG% 0.3 %; LYMPH % 15.1 %; LYMPH ABS # 1.11 K/uL (1.2-3.4); MEAN PLATELET VOLUME 8.8 fL (7.4-10.4); MONO % 16.5 %; PLATELET COUNT 89 K/uL (130-400); PLT ESTIMATE DECREASED
[2017-06-13 04:01] LABS: URINE APPEARANCE CLEAR (CLEAR); URINE BILIRUBIN NEG (NEG); URINE COLOR YELLOW; URINE NITRITE NEG (NEG); URINE SPECIFIC GRAVITY 1.028 (1.000-1.030); UROBILINOGEN NEG (NEG); ZZUR CULT IF INDIC CLEAN CATCH NO
[2017-06-13 04:22] LABS: MANUAL MICROSCOPIC REQUIRED? NO; REVIEW REQ? NO
[2017-06-13] MEDS ORDERED: POTASSIUM CHLORIDE 10 MEQ TABCR PO STA (05:04)
[2017-06-13] MEDS ORDERED: ASPIRIN 324 MG CHEW PO STA (05:44)
[2017-06-13 05:47] LABS: BENZODIAZEPINE, URINE NEG (NEG); COCAINE,URINE NEG (NEG); PHENCYCLIDINE, URINE NEG (NEG)
[2017-06-13] MEDS ORDERED: GABAPENTIN 600 MG TAB PO SCH (06:00)
[2017-06-13] MEDS ORDERED: ONDANSETRON INJ 2 MG/ML 2 ML VIAL IV PRN (06:00)
[2017-06-13] MEDS ORDERED: PHARMACIST DISCHARGE MED REC CONSULT PRN (06:00)
[2017-06-13] MEDS ORDERED: NITROGLYCERIN 0.4 MG SL PER TAB CHARGE SL PRN (06:00)
[2017-06-13] MEDS ORDERED: LORAZEPAM 2 MG/ML 1 ML VIAL IV PRN (06:00)
[2017-06-13] MEDS ORDERED: IV FLUIDS COMPLETED PRN (06:15)
[2017-06-13 06:48] LABS: MAGNESIUM 1.6 mg/dl (1.8-2.4)
[2017-06-13] MEDS ORDERED: MULTI-VITAMIN INFUSION INJ 10 ML, THIAMINE HCL INJ 100 MG, FoLIC ACID INJ 1 MG, POTASSI... IV ONE ×5 (07:00)
[2017-06-13] MEDS ORDERED: INFLUENZA VIRUS QUAD VACCINE 0.5 ML SYR IM. ONE (07:00)
[2017-06-13] MEDS ORDERED: INFLUENZA ADMINISTRATION CHARGE ONE (07:00)
--- NOTE | 2017-06-13 07:14 | HISTORY & PHYSICAL EXAMINATION ---
DATE OF ADMISSION: 06/13/2017 PRIMARY CARE PHYSICIAN: No primary care doctor. CHIEF COMPLAINT: Weakness, falling, legs do not work as per patient. HISTORY OF PRESENT ILLNESS: History obtained from patient and records. Medical history significant for hypertension not on meds, old CVA on CAT scan, past tobacco abuse, alcoholism as per records, history of esophageal stenosis per records, chronic anemia (baseline hemoglobin of 11), chronic tremors as per patient. Recent confinement February 2017 for right hip fracture secondary to fall. Patient underwent surgery, subsequently discharged for rehab at [facility] for the next 2 months on Lovenox subcutaneous daily Rx for a month for DVT prophylaxis. Patient subsequently released to home. Patient seen at the Emergency Room a few days ago for worsening hip pain, right greater than left. X-rays showed no acute fracture of the pelvis or hips, old healed right hip fracture. Outpatient Orthopedic followup visit contemplated. Blood alcohol level at that time was noted to be 364. Patient woke up yesterday morning having trouble walking, Both legs feeling weak and clumsy. having trouble w balance. Patient denies headache, dizziness symptoms. He felt like he was giving more to the left side. No chest pain, no shortness of breath. No previous episodes. Patient brought to the Emergency Room. MEDICAL HISTORY: As above. SURGICAL HISTORY: Hernia surgery. HOME MEDICATIONS: Include cyanocobalamin, Tylenol, vitamin C. ALLERGIES: PENICILLIN. FAMILY HISTORY: Hypertension. PERSONAL AND SOCIAL HISTORY: Past tobacco abuse. Denies alcohol abuse, last drink was about 3 weeks ago as per patient. Applying for disability. REVIEW OF SYSTEMS: As per HPI, all 10 systems reviewed. All other ROS negative. PHYSICAL EXAMINATION: VITAL SIGNS: Blood pressure was noted to be 170/100, pulse rate 70, RR 16, temperature 36.9; sats 96 on room air. GENERAL: Noted to be slightly anxious, no respiratory distress, looks older than stated age. Hard of hearing. HEENT: Partial alopecia. Pale palpebral conjunctiva. No ptosis. Dry buccal mucosa. NECK: No JVD. Supple, no tenderness. LUNGS: Decreased breath sounds. No tenderness. HEART: Regular rate and rhythm. Palpable LE pulses. ABDOMEN: Soft, nontender. EXTREMITIES: Some tenderness in the right hip. No other gross deformities. NEUROLOGIC: No gross focality except for hearing impairment, intention tremors, dysmetria. MMTS extremities about 4/5. Gait and stance not assessed. LABS: Hemoglobin was noted to be 13.7, hematocrit 38.6, white cell count 7.35, platelets 89. Sodium noted to be 134, potassium 3.2, chloride 100, CO2 26, creatinine 0.9, glucose 101. CT head angiogram initial read showed short segment short segment thrombosis, left MCA. No evidence of large vessel occlusion, chronic appearing ischemic changes. EKG as per my interpretation NSR, normal axis, LVH, T-wave abnormality septal leads ASSESSMENT: 1. Bilateral lower extremity weakness, gait imbalance ? posterior cerebrovascular accident history of cerebrovascular accident on an old CAT scans 2. Hypertensive urgency secondary to above. 3. Past tobacco abuse 4, ongoing alcohol abuse 5. Thrombocytopenia ro HIT 6. Hypokalemia. 7. Chronic anemia, hemoglobin better than baseline PLAN: Observation PCU neuro checks MRI/MRA of brain. ASA for now for stroke prevention until new stroke ruled out. Permissive hypertension until stroke ruled out. Check lipid profile Neurology consult RE bilateral LE weakness, gait imbalance PT, OT eval. DT precautions. Replace potassium. HIT screen DVT prophylaxis, SCDs RE thrombocytopenia. Full code. MTDD
--- NOTE | 2017-06-13 07:14 | DIAGNOSTIC IMAGING REPORT ---
NECK CTA HISTORY: Ataxia. Weakness. TECHNIQUE: Multiaxial CT images of the neck were performed following the intravenous administration of contrast to evaluate the major cervical vessels. Maximum intensity projection images were also obtained. All measurements were calculated based on NASCET criteria. A dose lowering technique was utilized adhering to the principles of ALARA. COMPARISON STUDY: None. FINDINGS: The aortic arch and proximal great vessels are widely patent. There is no significant stenosis, occlusion, or dissection identified within the bilateral common carotid, internal carotid, or vertebral arteries. Mild calcified plaque within the bilateral carotid bulbs. Moderate degenerative disc disease throughout the majority of the cervical spine. IMPRESSION: No significant stenosis, occlusion, or dissection identified within the carotid or vertebral arteries. Electronically signed by: Jigar Cassidy M.D. 06/13/2017 7:12 AM Dictated Date/Time: 06/13/2017 7:08 AM
--- NOTE | 2017-06-13 07:24 | DIAGNOSTIC IMAGING REPORT ---
SINGLE VIEW CHEST CLINICAL HISTORY: Generalized abdominal pain. FINDINGS: An AP, portable, upright chest radiograph is compared to study dated 03/04/2017 and correlated with chest CT dated 02/15/2017. The examination is degraded by portable technique and patient rotation. The cardiomediastinal silhouette is unremarkable. Chronic interstitial thickening is similar to previous. There is minimal bibasilar scarring versus atelectasis. No airspace consolidation, large pleural effusion, or pneumothorax is seen. The skeletal structures are osteopenic. There are healed left-sided rib fractures. IMPRESSION: No acute cardiopulmonary abnormality. Electronically signed by: Froy Lau M.D. 06/13/2017 7:22 AM Dictated Date/Time: 06/13/2017 7:21 AM
[2017-06-13] MEDS ORDERED: GABAPENTIN 1200MG LOADING DOSE PO ONE (08:00)
--- NOTE | 2017-06-13 08:05 | DIAGNOSTIC IMAGING REPORT ---
ANGIOGRAPHY HEAD COMBO CLINICAL HISTORY: 51 years-old Male presents with acute weakness and ataxia with multiple falls COMPARISON STUDY: CTA of the neck of same day, CT head 02/25/2017 TECHNIQUE: Unenhanced axial CT scan of the brain is performed. Subsequently, following the IV administration of 119 cc of Optiray 320, CT angiogram of the brain was performed from the skull base to the vertex. Images are reviewed in the axial, sagittal, and coronal planes. 3-D MIPS images are created and assessed. IV contrast was administered without complication. A dose lowering technique was utilized adhering to the principles of ALARA. FINDINGS: CT BRAIN: There is no acute intracranial hemorrhage, midline shift, hydrocephalus, intracranial mass, territorial ischemia or abnormal extra-axial collections. No abnormal intra-axial or extra-axial enhancement. There is mild atrophy. Remote infarction of the left caudate nucleus. Mild background chronic microvascular ischemic changes. Mastoid air cells and middle ear cavities are clear. No calvarial fracture. Paranasal sinuses are clear. CT ANGIOGRAM OF THE BRAIN: The imaged bilateral internal carotid arteries are patent. The previously discussed short segment of decreased attenuation involving the anterior left M2 branch within sylvian fissure is not appreciated. The bilateral anterior and middle cerebral arteries are also patent. The vertebrobasilar system and posterior cerebral arteries are widely patent. There is no aneurysm, high-grade stenosis, or proximal branch occlusion identified. Note is made of origin of the right posterior cerebral artery. Dural sinuses appear patent. IMPRESSION: 1. No acute intracranial abnormality. 2. Unremarkable CTA of the head without aneurysm, dissection, high-grade stenosis or proximal branch occlusion. The previously discussed short segment of decreased attenuation involving the anterior left M2 branch within the sylvian fissure is not appreciated. 3. origin of the right posterior cerebral artery. The above report was generated using voice recognition software. It may contain grammatical, syntax or spelling errors. Electronically signed by: Mark Hernandez M.D. 06/13/2017 8:03 AM Dictated Date/Time: 06/13/2017 7:54 AM
[2017-06-13 08:12] LABS: INFLUENZA A PCR Neg for Influ A (NEG); INFLUENZA B PCR Neg for Influ B (NEG)
[2017-06-13] MEDS: CYANOCOBALAMIN 100 MCG TAB (VIT B-12) PO SCH (08:12)
[2017-06-13 10:47] LABS: POTASSIUM 3.5 mmol/L (3.5-5.1)
[2017-06-13] MEDS: AMLODIPINE BESYLATE 5 MG TAB PO SCH (10:53)
[2017-06-13 10:59] LABS: CHOLESTEROL/HDL RATIO 1.5
--- NOTE | 2017-06-13 11:22 | Progress Note ---
Medicine Progress Note Date & Time of Visit: Jun 13, 2017 at 11:22. Subjective patient seen resting in bed, not in distress, oriented states lower leg strength is better today denies other focal neuro deficits does report increasing right hip pain, worse with ambulation denies other symptoms Objective Last 8 Hrs Date Time Temp Pulse Resp B/P (MAP) Pulse Ox O2 Delivery O2 Flow Rate FiO2 06/13/17 08:00 Room Air 06/13/17 07:52 36.9 80 18 195/100 (131) 97 06/13/17 06:12 72 18 180/112 96 Room Air 06/13/17 05:44 36.5 71 18 204/99 Room Air 06/13/17 05:26 73 16 178/100 96 Room Air 06/13/17 04:06 87 06/13/17 03:30 75 18 184/119 96 Room Air Physical Exam: General- oriented x 3, not in distress, speaks in sentences with no effort Head- atraumatic Eyes- PERRL, EOMI, anicteric ENT- oropharynx clear Neck- supple, no JVD, no adenopathy, no thyromegaly Lungs- clear breath sounds bilaterally Heart- regular rhythm; no murmur, normal rate, regular rhythm Abdomen- normal bowel sounds, soft, nontender Extremities- no pretibial edema, no calf tenderness Neuro- alert, oriented x 3; PERRL, EOMI; no facial palsy; no dysarthria; motor 5 /5 bilaterally; sensation 100% no other gross focal deficits Skin- warm & dry Laboratory Results: Last 24 Hours Test 06/13/17 01:32 06/13/17 03:32 06/13/17 05:55 06/13/17 10:04 White Blood Count 7.35 K/uL Red Blood Count 4.49 M/uL Hemoglobin 13.7 g/dL Hematocrit 38.6 % Mean Corpuscular Volume 86.0 fL Mean Corpuscular Hemoglobin 30.5 pg Mean Corpuscular Hemoglobin Concent 35.5 g/dl Platelet Count 89 K/uL Mean Platelet Volume 8.8 fL Neutrophils (%) (Auto) 68.0 % Lymphocytes (%) (Auto) 15.1 % Monocytes (%) (Auto) 16.5 % Eosinophils (%) (Auto) 0.0 % Basophils (%) (Auto) 0.1 % Neutrophils # (Auto) 5.00 K/uL Lymphocytes # (Auto) 1.11 K/uL Monocytes # (Auto) 1.21 K/uL Eosinophils # (Auto) 0.00 K/uL Basophils # (Auto) 0.01 K/uL RDW Standard Deviation 45.4 fL RDW Coefficient of Variation 14.8 % Immature Granulocyte % (Auto) 0.3 % Immature Granulocyte # (Auto) 0.02 K/uL Platelet Estimate DECREASED Red Blood Cell Morphology Unremarkable Sodium Level 134 mmol/L Potassium Level 3.2 mmol/L 3.5 mmol/L Chloride Level 100 mmol/L Carbon Dioxide Level 26 mmol/L Anion Gap 8.0 mmol/L Blood Urea Nitrogen 3 mg/dl Creatinine 0.59 mg/dl Est Creatinine Clear Calc Drug Dose 140.9 ml/min Estimated GFR () 134.9 Estimated GFR (Non- 116.4 BUN/Creatinine Ratio 5.8 Random Glucose 101 mg/dl Calcium Level 8.9 mg/dl Magnesium Level 1.6 mg/dl Total Bilirubin 0.8 mg/dl Direct Bilirubin 0.2 mg/dl Aspartate Amino Transf (AST/SGOT) 32 U/L Alanine Aminotransferase (ALT/SGPT) 19 U/L Alkaline Phosphatase 138 U/L Troponin I < 0.015 ng/ml Total Protein 7.5 gm/dl Albumin 3.7 gm/dl Lipase 140 U/L Thyroid Stimulating Hormone (TSH) 1.410 uIu/ml Ethyl Alcohol mg/dL < 3.0 mg/dl Urine Color YELLOW Urine Appearance CLEAR Urine pH 8.0 Urine Specific [place] 1.028 Urine Protein NEG Urine Glucose (UA) NEG Urine Ketones NEG Urine Occult Blood NEG Urine Nitrite NEG Urine Bilirubin NEG Urine Urobilinogen NEG Urine Leukocyte Esterase NEG Urine Opiates Screen NEG Urine Methadone, Qualitative NEG Urine Barbiturates NEG Urine Phencyclidine (PCP) Level NEG Ur Amphetamine/Methamphetamine NEG MDMA (Ecstasy) Screen NEG Urine Benzodiazepines Screen NEG Urine Cocaine Metabolite NEG Urine Marijuana (THC) NEG Influenza Type A (RT-PCR) Neg for Influ A Influenza Type A Antigen Neg for Influ A Influenza Type B Antigen Neg for Influ B Influenza Type B (RT-PCR) Neg for Influ B Triglycerides Level 59 mg/dl Cholesterol Level 195 mg/dl HDL Cholesterol 128 mg/dl LDL Cholesterol, Calculated 55 mg/dl VLDL Cholesterol, Calculated 12 mg/dl Cholesterol/HDL Ratio 1.5 Assessment & Plan 1. Bilateral lower extremity weakness, gait imbalance ? posterior cerebrovascular accident history of cerebrovascular accident on an old CAT scans -- Brain MRI: 1. No acute infarct. 2. Old lacunar infarct within the left basal ganglia, unchanged. 3. Stable ventricular prominence. This is nonspecific but favors central volume loss. 4. Presumed minimal microvascular ischemic change. -- evaluated by Dr. Ji will need to re-evaluate tomorrow as patient was drowsy after MRI -- may need Cervical Spine MRI or EMG -- continue PT/OT -- continue Aspirin Right Hip Pain -- s/p Hip Surgery 02/2017 -- Hip xrays: unrevealing appreciate Dr. Kang's recommendations 2. Hypertensive urgency secondary to above. -- Amlodipine ordered PRN Clonidine 3. Past tobacco abuse -- counselling 4, ongoing alcohol abuse -- Alcohol Withdrawal Protocol including Gabapentin taper, PRN Ativan 5. Thrombocytopenia ro HIT -- HIT screen negative monitor Plt, may need to hold ASA if Plt continues to decrease 6. Hypokalemia. -- monitor and replet 7. Chronic anemia, hemoglobin better than baseline DVT prophylaxis SCDs due to thrombocytopenia Full Code Disposition may need Rehab or SNF Current Inpatient Medications: Current Inpatient Medications Medications (Trade) Dose Ordered Sig/Jaylene Route Start Time Stop Time Status Last Admin Dose Admin Ioversol (Optiray 320) 100 ml UD PRN IV 06/13/17 01:15 06/17/17 01:14 Multivitamins 10 ml/Thiamine HCl 100 mg/Folic Acid 1 mg/Potassium Chloride 20 meq/ Sodium Chloride 1,021.2 ml @ 60 mls/hr Q17H2M ONCE IV 06/13/17 07:00 06/14/17 00:01 06/13/17 08:12 60 MLS/HR Acetaminophen (Tylenol Tab) 650 mg Q4H PRN PO 06/13/17 06:00 07/13/17 05:59 Nitroglycerin (Nitrostat Tab) 0.4 mg UD PRN SL 06/13/17 06:00 07/13/17 05:59 Miscellaneous Information (Pharmacist Discharge Med Rec Consult) 1 ea UD PRN N/A 06/13/17 06:00 07/13/17 05:59 Oxycodone/ Acetaminophen (Percocet 5-325mg Tab) 1 tab Q6H PRN PO 06/13/17 06:00 06/27/17 05:59 Morphine Sulfate (MoRPHine SULFATE INJ) 2 mg Q4H PRN IV 06/13/17 06:00 06/27/17 05:59 Cyanocobalamin (Vitamin B-12 Tab) 100 mcg DAILY PO 06/13/17 09:00 07/13/17 08:59 06/13/17 08:12 100 MCG Thiamine HCl (Vitamin B-1 Tab) 100 mg QAM PO 06/14/17 09:00 07/14/17 08:59 Multivitamins (Multivitamin Tab) 1 tab QAM PO 06/14/17 09:00 07/14/17 08:59 Folic Acid (Folvite Tab) 1 mg QAM PO 06/14/17 09:00 07/14/17 08:59 Ondansetron HCl (Zofran Inj) 4 mg Q6H PRN IV 06/13/17 06:00 07/13/17 05:59 Aspirin (Ecotrin Tab) 81 mg QAM PO 06/14/17 09:00 07/14/17 08:59 Lorazepam (Ativan Inj) PRN Dosing -Active Protocol Q1H PRN IV 06/13/17 06:00 07/13/17 05:59 Miscellaneous (Iv Fluids Completed) 1 ea PRN PRN N/A 06/13/17 06:15 06/13/18 06:14 Gabapentin (Neurontin Tab) 600 mg Q6H PO 06/13/17 14:00 06/13/17 20:01 Gabapentin (Neurontin Tab) 600 mg Q8H PO 06/14/17 06:00 06/14/17 22:01 Gabapentin (Neurontin Tab) 600 mg Q12H PO 06/15/17 10:00 06/15/17 22:01 Gabapentin (Neurontin Tab) 600 mg Q24H PO 06/16/17 22:00 06/16/17 22:01 Amlodipine Besylate (Norvasc Tab) 2.5 mg QAM PO 06/13/17 09:00 07/13/17 08:59 06/13/17 10:53 2.5 MG Clonidine HCl (Catapres Tab) 0.1 mg Q6H PRN PO 06/13/17 09:00 07/13/17 08:59 Magnesium Sulfate 1 gm/Prmx 100 ml @ 100 mls/hr Q1H IV 06/13/17 11:00 06/13/17 12:59
[2017-06-13] MEDS: MAGNESIUM SULFATE 1GM / D5W 1 GM in PREMIXED IN D5W 100 ML IV SCH ×2 (11:27→14:10)
--- NOTE | 2017-06-13 11:40 | Orthopedic Consultation ---
Orthopedic Consultation Date of Consultation: Jun 13, 2017. Attending Physician: Romario Ratliff MD Reason for Consultation: Left hip pain History of Present Illness Patient is a 51-year-old male appears older than his stated age. Complaining of right hip pain and difficulty ambulating for the last week or 2 with weakness of the lower extremities. He also complains of R knee pain. He does have a prior history right intertrochanteric hip fracture and cephalomedullary nail on 03/05/[address] Fry. Denies loss of consciousness denies hitting head denies fevers chills nausea vomiting shortness of breath or chest pains. Past Medical/Surgical History Medical Problems: (1) Abnormal ECG Status: Acute (2) Alcohol dependence Status: Acute (3) Alcohol intoxication Status: Acute (4) Anemia Status: Acute (5) Ataxia Status: Acute (6) Closed left clavicular fracture Status: Acute (7) Elbow fracture, left Status: Acute (8) Fall as cause of accidental injury in residential institution as place of occurrence Status: Acute (9) Generalized weakness Status: Acute (10) Hip pain, right Status: Acute (11) Homeless Status: Acute (12) Hypokalemia Status: Acute (13) Hypophosphatemia Status: Acute (14) Hypotension Status: Acute (15) Intertrochanteric fracture of right hip Status: Acute (16) Malnutrition Status: Acute (17) Pneumonia Status: Acute Family History FHx: cancer Social History Smoking Status: Former Smoker Drug Use: none Marital Status: single Housing Status: other Occupation Status: unemployed Allergies Coded Allergies: Penicillins (Verified Adverse Reaction, Mild, TIRED, 06/13/17) Home Medications Scheduled Ascorbic Acid (Vitamin C), 1 TAB PO DAILY Cyanocobalamin (Vitamin B12 100 Mcg), 100 MCG PO DAILY Scheduled PRN Acetaminophen (Tylenol), 1,000 MG PO BID PRN for Headache or Pain Current Inpatient Medications Current Inpatient Medications Medications (Trade) Dose Ordered Sig/Jaylene Route Start Time Stop Time Status Last Admin Dose Admin Ioversol (Optiray 320) 100 ml UD PRN IV 06/13/17 01:15 06/17/17 01:14 Multivitamins 10 ml/Thiamine HCl 100 mg/Folic Acid 1 mg/Potassium Chloride 20 meq/ Sodium Chloride 1,021.2 ml @ 60 mls/hr Q17H2M ONCE IV 06/13/17 07:00 06/14/17 00:01 06/13/17 08:12 60 MLS/HR Acetaminophen (Tylenol Tab) 650 mg Q4H PRN PO 06/13/17 06:00 07/13/17 05:59 Nitroglycerin (Nitrostat Tab) 0.4 mg UD PRN SL 06/13/17 06:00 07/13/17 05:59 Miscellaneous Information (Pharmacist Discharge Med Rec Consult) 1 ea UD PRN N/A 06/13/17 06:00 07/13/17 05:59 Oxycodone/ Acetaminophen (Percocet 5-325mg Tab) 1 tab Q6H PRN PO 06/13/17 06:00 06/27/17 05:59 Morphine Sulfate (MoRPHine SULFATE INJ) 2 mg Q4H PRN IV 06/13/17 06:00 06/27/17 05:59 Cyanocobalamin (Vitamin B-12 Tab) 100 mcg DAILY PO 06/13/17 09:00 07/13/17 08:59 06/13/17 08:12 100 MCG Thiamine HCl (Vitamin B-1 Tab) 100 mg QAM PO 06/14/17 09:00 07/14/17 08:59 Multivitamins (Multivitamin Tab) 1 tab QAM PO 06/14/17 09:00 07/14/17 08:59 Folic Acid (Folvite Tab) 1 mg QAM PO 06/14/17 09:00 07/14/17 08:59 Ondansetron HCl (Zofran Inj) 4 mg Q6H PRN IV 06/13/17 06:00 07/13/17 05:59 Aspirin (Ecotrin Tab) 81 mg QAM PO 06/14/17 09:00 07/14/17 08:59 Lorazepam (Ativan Inj) PRN Dosing -Active Protocol Q1H PRN IV 06/13/17 06:00 07/13/17 05:59 Miscellaneous (Iv Fluids Completed) 1 ea PRN PRN N/A 06/13/17 06:15 06/13/18 06:14 Gabapentin (Neurontin Tab) 600 mg Q6H PO 06/13/17 14:00 06/13/17 20:01 Gabapentin (Neurontin Tab) 600 mg Q8H PO 06/14/17 06:00 06/14/17 22:01 Gabapentin (Neurontin Tab) 600 mg Q12H PO 06/15/17 10:00 06/15/17 22:01 Gabapentin (Neurontin Tab) 600 mg Q24H PO 06/16/17 22:00 06/16/17 22:01 Amlodipine Besylate (Norvasc Tab) 2.5 mg QAM PO 06/13/17 09:00 07/13/17 08:59 06/13/17 10:53 2.5 MG Clonidine HCl (Catapres Tab) 0.1 mg Q6H PRN PO 06/13/17 09:00 07/13/17 08:59 Magnesium Sulfate 1 gm/Prmx 100 ml @ 100 mls/hr Q1H IV 06/13/17 11:00 06/13/17 12:59 06/13/17 11:27 100 MLS/HR Review of Systems Review of systems are negative with the exception of those mentioned in the history of present illness. Physical Exam Date Time Temp Pulse Resp B/P (MAP) Pulse Ox O2 Delivery O2 Flow Rate FiO2 06/13/17 08:00 Room Air 06/13/17 07:52 36.9 80 18 195/100 (131) 97 06/13/17 06:12 72 18 180/112 96 Room Air 06/13/17 05:44 36.5 71 18 204/99 Room Air 06/13/17 05:26 73 16 178/100 96 Room Air 06/13/17 04:06 87 06/13/17 03:30 75 18 184/119 96 Room Air 06/13/17 01:57 75 184/109 06/13/17 00:47 96 Room Air 06/13/17 00:41 36.9 85 179/130 96 Room Air 06/13/17 00:39 84 Alert and oriented 3, no apparent distress. B/L UE NVSI +M/R/U/AIN/PIN SILT grossly, CR< 2 seconds, 5/5 gripe strength, full painless ROM hand/wrist/elbow/shoulder LLE NVSI +EHL/FHL/TA/GS SILT grossly, CR< 2 seconds, +2 DP pulse, compartments soft NT, motor strength hip flexors LLE 4/5, Full painless ROM hip/knee/ankle. Skin intact RLE NVSI +EHL/FHL/TA/GS SILT grossly, CR< 2 seconds, +2 DP pulse, compartments soft NT, motor strength hip flexors RLE 4/5, Full painless ROM knee/ankle. Mild discomfort with hip flexion, external/internal rotation. Surgical scars C/D/I, no ecchymosis. Laboratory Results Last 24 Hours Test 06/13/17 01:32 06/13/17 03:32 06/13/17 05:55 06/13/17 10:04 White Blood Count 7.35 K/uL Red Blood Count 4.49 M/uL Hemoglobin 13.7 g/dL Hematocrit 38.6 % Mean Corpuscular Volume 86.0 fL Mean Corpuscular Hemoglobin 30.5 pg Mean Corpuscular Hemoglobin Concent 35.5 g/dl Platelet Count 89 K/uL Mean Platelet Volume 8.8 fL Neutrophils (%) (Auto) 68.0 % Lymphocytes (%) (Auto) 15.1 % Monocytes (%) (Auto) 16.5 % Eosinophils (%) (Auto) 0.0 % Basophils (%) (Auto) 0.1 % Neutrophils # (Auto) 5.00 K/uL Lymphocytes # (Auto) 1.11 K/uL Monocytes # (Auto) 1.21 K/uL Eosinophils # (Auto) 0.00 K/uL Basophils # (Auto) 0.01 K/uL RDW Standard Deviation 45.4 fL RDW Coefficient of Variation 14.8 % Immature Granulocyte % (Auto) 0.3 % Immature Granulocyte # (Auto) 0.02 K/uL Platelet Estimate DECREASED Red Blood Cell Morphology Unremarkable Sodium Level 134 mmol/L Potassium Level 3.2 mmol/L 3.5 mmol/L Chloride Level 100 mmol/L Carbon Dioxide Level 26 mmol/L Anion Gap 8.0 mmol/L Blood Urea Nitrogen 3 mg/dl Creatinine 0.59 mg/dl Est Creatinine Clear Calc Drug Dose 140.9 ml/min Estimated GFR () 134.9 Estimated GFR (Non- 116.4 BUN/Creatinine Ratio 5.8 Random Glucose 101 mg/dl Calcium Level 8.9 mg/dl Magnesium Level 1.6 mg/dl Total Bilirubin 0.8 mg/dl Direct Bilirubin 0.2 mg/dl Aspartate Amino Transf (AST/SGOT) 32 U/L Alanine Aminotransferase (ALT/SGPT) 19 U/L Alkaline Phosphatase 138 U/L Troponin I < 0.015 ng/ml Total Protein 7.5 gm/dl Albumin 3.7 gm/dl Lipase 140 U/L Thyroid Stimulating Hormone (TSH) 1.410 uIu/ml Ethyl Alcohol mg/dL < 3.0 mg/dl Urine Color YELLOW Urine Appearance CLEAR Urine pH 8.0 Urine Specific Stephens 1.028 Urine Protein NEG Urine Glucose (UA) NEG Urine Ketones NEG Urine Occult Blood NEG Urine Nitrite NEG Urine Bilirubin NEG Urine Urobilinogen NEG Urine Leukocyte Esterase NEG Urine Opiates Screen NEG Urine Methadone, Qualitative NEG Urine Barbiturates NEG Urine Phencyclidine (PCP) Level NEG Ur Amphetamine/Methamphetamine NEG MDMA (Ecstasy) Screen NEG Urine Benzodiazepines Screen NEG Urine Cocaine Metabolite NEG Urine Marijuana (THC) NEG Influenza Type A (RT-PCR) Neg for Influ A Influenza Type A Antigen Neg for Influ A Influenza Type B Antigen Neg for Influ B Influenza Type B (RT-PCR) Neg for Influ B Triglycerides Level 59 mg/dl Cholesterol Level 195 mg/dl HDL Cholesterol 128 mg/dl LDL Cholesterol, Calculated 55 mg/dl VLDL Cholesterol, Calculated 12 mg/dl Cholesterol/HDL Ratio 1.5 Assessment & Plan Right hip pain s/p Right hip Cephalomedullary nail 03/05/17 Ambulatory dysfunction Right knee pain The patient's most recent x-ray 06/09/17 demonstrates healing of the right hip fracture with implants and acceptable position. I will obtain new images of the hip and of the right knee. Weightbearing status pending the results of these images. PT/OT pending XRs Results X-rays of AP pelvis and bilateral hips from 06/09/2017 demonstrates healing right hip fracture with orthopedic implant in acceptable position without loss of fixation or failure of the implant. Mild. DJD bilateral hips. No dislocation noted.
--- NOTE | 2017-06-13 12:55 | DIAGNOSTIC IMAGING REPORT ---
R PELVIS/UNILATERAL HIP 2-3VIEWS, R KNEE 3 VIEWS CLINICAL HISTORY: history of surgery s/p fracture, recent falls. Right hip and knee pain. COMPARISON STUDY: Pelvis and bilateral hips 06/09/2017. FINDINGS: The bones are osteopenic. There is contrast within the bladder which partially obscures the sacrum. Mild osteoarthritis within the bilateral hips. There is a proximal intramedullary right femoral anastasiia with an interlocking femoral neck pin transfixing an old, healed right hip fracture. Mild heterotopic ossification at the right hip is again noted. The hardware appears intact. No acute fracture or dislocation within the pelvis or left hip. Question of a small nondisplaced fracture at the superior tip of the right greater trochanter. This is of doubtful clinical significance given the location. No fractures within the right femoral neck. No fracture or dislocation within the right knee. No knee effusion. Soft tissues are unremarkable. IMPRESSION: 1. Question of a small nondisplaced fracture at the superior tip of the right greater trochanter. However, this is of doubtful clinical significance given the location. No evidence for an acute right femoral neck fracture. 2. No fractures identified within the pelvis or left hip. 3. No fracture within the right knee. Electronically signed by: Jigar Cassidy M.D. 06/13/2017 12:53 PM Dictated Date/Time: 06/13/2017 12:46 PM
--- NOTE | 2017-06-13 13:42 | DIAGNOSTIC IMAGING REPORT ---
Brain MRI WITHOUT CONTRAST HISTORY: Stroke TECHNIQUE: Multiplanar multisequence MRI of the brain was performed without the use of contrast. COMPARISON STUDY: Head CTA 06/13/2017. FINDINGS: Mild motion artifact. There is no mass, hematoma, midline shift, acute infarct. A few punctate foci of T2 hyperintensity seen within the periventricular white matter. These are nonspecific but favor minimal microvascular ischemic change. Old lacunar infarct within the left basal ganglia. Prominence of the ventricles and central volume loss. The orbits are unremarkable. Paranasal sinuses and mastoid air cells are clear. The major vascular flow voids at the skull base are well-maintained. IMPRESSION: 1. No acute infarct. 2. Old lacunar infarct within the left basal ganglia, unchanged. 3. Stable ventricular prominence. This is nonspecific but favors central volume loss. 4. Presumed minimal microvascular ischemic change. Electronically signed by: Jigar Cassidy M.D. 06/13/2017 1:41 PM Dictated Date/Time: 06/13/2017 1:35 PM
--- NOTE | 2017-06-13 13:46 | DIAGNOSTIC IMAGING REPORT ---
Brain MRA HISTORY: Stroke - Attention to [place] TECHNIQUE: 3-D [id number] MRA of the brain was performed without contrast. COMPARISON STUDY: Head CTA 06/13/2017. FINDINGS: Motion artifact. This results in suboptimal evaluation of the cerebral arteries. The bilateral intracranial internal carotid arteries, distal vertebral arteries, and basilar artery appear to be patent. No high-grade stenosis or occlusion identified within the bilateral ACAs, MCAs, or tube builder airplane. No aneurysm identified. IMPRESSION: Motion artifact. No high-grade stenosis or occlusion identified within the [place]. Electronically signed by: Jigar Cassidy M.D. 06/13/2017 1:44 PM Dictated Date/Time: 06/13/2017 1:42 PM
[2017-06-13] MEDS: GABAPENTIN 600MG Q6H DOSE PO SCH ×2 (14:09→18:59)
--- NOTE | 2017-06-13 17:51 | CONSULTATION REPORT ---
DATE OF CONSULTATION: 06/13/[address] Ratliff HISTORY OF PRESENT ILLNESS: Aaron is a 51-year-old white right-handed man from [facility] who is currently homeless and has been for some time. He is a known chronic alcoholic; has hypertension, not on any medications; has had an old CVA on CT scans; has past tobacco abuse, nonactive now; has a history of esophageal stenosis, chronic anemia and chronic tremors at baseline which become worse with alcohol withdrawal. He was last seen in this institution in February 2017 for right hip fracture secondary to fall. He had surgery, subsequently discharged to rehab at [facility]. I believe he had some alcohol withdrawal issues at that time and he was on daily subQ Lovenox for a month and then he was released, but unfortunately remained almost and continued to drink. His last In the Emergency Room for worsening hip pain, right greater than left. X-rays show no acute fracture and an old healed right fracture. His blood alcohol level was 364. He apparently awakened yesterday having trouble walking, legs feeling weak and clumsy. He was having trouble with his balance without any other symptoms. No dizziness. He thought he was going more to the left side and presented to the Emergency Room at which point his alcohol level was 0 and his tox screen was negative. He subsequently did appear to be a little tremulous and was put on the alcohol withdrawal protocol. He was to have an MRI today, required sedation for it in the form of Ativan to control his tremors and the MRI does not show any acute infarcts but rather the old areas of abnormality. A CTA of the brain and extracranial vasculature has been unrevealing of any significant problems. MEDICATIONS: His home medications theoretically include B12, Tylenol and vitamin C. ALLERGIES: HE HAS ALLERGIES TO PENICILLIN. FAMILY HISTORY: Positive for hypertension. SOCIAL HISTORY: Reveals him to be single. He is applying for disability. He is currently looking for a homeless [place] [facility] facility. Currently, he is too sedated, he cannot be awakened to provide a history, and I really cannot provide a review of systems, but Dr. Ratliff and the ER staff could find nothing on review last night of significance other than the problems with gait that precipitated the admission. PHYSICAL EXAMINATION: VITAL SIGNS: On examination, he was hypertensive with a blood pressure 170/100, pulse rate 70, respirations 16, and pressures have been risen to even higher levels before coming down a bit. GENERAL: He was felt to be anxious. HEENT: He was in no respiratory distress. He was very hard of hearing. He had alopecia. No ptosis. No scleral icterus. It was a little dry. NECK: Supple. No bruits were heard. LUNGS: Clear. HEART: Had a regular rhythm. ABDOMEN: Soft, nontender. No ascites were palpated. EXTREMITIES: He had no peripheral edema and good peripheral pulses. NEUROLOGIC: There was nothing focal seen last night other than for hearing impairment, intention tremors and little cerebellar dysmetria. It was felt that his extremity strength for about 4/5. Reflexes were not mentioned nor was the sensory exam. Today unfortunately he is very lethargic. I had to do a lot of sternal rubbing to wake him up. He would not open his eyes. He would not vocalize. Nursing staff who knows him thinks that this is all due to the Ativan and he certainly has no tremor at this point. No posturing. His eye movements are conjugate when I get him to cooperate. I do not see any gross facial asymmetry or facial weakness. He does withdraw to noxious stimulation. I do detect ankle jerks bilaterally, although he is so stuporous, I am not sure that these are reliable and the knee jerk seems to be down. Upper extremity reflexes cannot be obtained. Strength cannot be tested. Sensation really cannot be remarked upon other the fact that he withdraws to noxious stimuli in a symmetrical fashion bilaterally. RADIOGRAPHS: Imaging studies have been reviewed above and showed no acute infarction. At this point, I cannot ascertain what may have caused the dystaxia and the increasing tremor. I am suspicious about alcohol withdrawal as he did have a high level of alcohol 3 days ago and now it is 0. He certainly could have a polyneuropathy. I am not impressed with any significant cerebellar atrophy on MRI of the brain where he does have some hydrocephalus ex vacuo with leuko encephalopathic changes but nothing acute is seen. I will check back tomorrow when he is more awake and alert. He certainly has neutral to downgoing toes today, again unreliable because of his mental status. We may end up having the images of the cervical spine or even consider an outpatient EMG. Again, with more complete exam tomorrow hopefully when he is more awake some of these decisions can be made with a little more rationality. I will be back tomorrow to see him. LUIS EDUARDO
[2017-06-13] MEDS: CLONIDINE HCL 0.1 MG TAB PO PRN (19:00)
[2017-06-13] MEDS: ACETAMINOPHEN 325 MG TAB PO PRN (23:23)
[2017-06-14] VITALS (7 sets, daily range): BP systolic 124–175; BP diastolic 66–95; PULSE 75–101; TEMP 36.4–37.2; O2SAT 96–99
[2017-06-14] MEDS: GABAPENTIN 600MG Q8H DOSE PO SCH ×3 (06:12→22:02)
[2017-06-14 06:46] LABS: HEMATOCRIT 42.2 % (42-52); MEAN CELL VOLUME 87.7 fL (80-100); MEAN CORPUSCULAR HEMOGLOBIN 30.8 pg (25-34); MEAN CORPUSCULAR HGB CONC 35.1 g/dl (32-36); RED BLOOD COUNT 4.81 M/uL (4.7-6.1); WHITE BLOOD COUNT 6.07 K/uL (4.8-10.8)
[2017-06-14 07:21] LABS: BASO % 0.3 %; BASO ABS # 0.02 K/uL (0-0.2); COMPLETE YES; EOS % 3.6 %; IG% 0.2 %; LARGE PLATELETS 1+; LYMPH % 29.5 %; LYMPH ABS # 1.79 K/uL (1.2-3.4); MEAN PLATELET VOLUME 9.5 fL (7.4-10.4); MONO % 17.1 %; NEUT % 49.3 %; PLATELET COUNT 71 K/uL (130-400)
[2017-06-14 07:24] LABS: BUN/CREATININE RATIO 15.9 (10-20); CALCIUM 8.6 mg/dl (8.5-10.1); CREATININE 0.68 mg/dl (0.60-1.40); POTASSIUM 3.8 mmol/L (3.5-5.1)
[2017-06-14] MEDS: MULTIVITAMIN TAB PO SCH (08:24)
[2017-06-14] MEDS: THIAMINE HCL 100 MG TAB PO SCH (08:24)
[2017-06-14] MEDS: AMLODIPINE BESYLATE 5 MG TAB PO SCH (08:25)
[2017-06-14] MEDS: CYANOCOBALAMIN 100 MCG TAB (VIT B-12) PO SCH (08:26)
[2017-06-14] MEDS ORDERED: ASPIRIN 81 MG ECTAB PO SCH (09:00)
--- NOTE | 2017-06-14 10:45 | Progress Note ---
Orthopedic SOAP Note Subjective Date of Service: Jun 14, 2017. Reports: feeling well Additional Notes: NO C/O AT REST NO PAIN Problem List Medical Problems: (1) Abnormal ECG Status: Acute (2) Alcohol dependence Status: Acute (3) Alcohol intoxication Status: Acute (4) Anemia Status: Acute (5) Ataxia Status: Acute (6) Closed left clavicular fracture Status: Acute (7) Elbow fracture, left Status: Acute (8) Fall as cause of accidental injury in residential institution as place of occurrence Status: Acute (9) Generalized weakness Status: Acute (10) Hip pain, right Status: Acute (11) Homeless Status: Acute (12) Hypokalemia Status: Acute (13) Hypophosphatemia Status: Acute (14) Hypotension Status: Acute (15) Intertrochanteric fracture of right hip Status: Acute (16) Malnutrition Status: Acute (17) Pneumonia Status: Acute Objective N/V intact, hip located healed incison mild discomfort with rom hip no pain with rom knee no swelling stable ligaments Date Time Temp Pulse Resp B/P (MAP) Pulse Ox O2 Delivery O2 Flow Rate FiO2 06/14/17 08:00 Room Air 06/14/17 07:39 37.0 91 20 139/88 (105) 97 Room Air 06/14/17 04:00 99 Room Air 06/14/17 03:50 37.2 84 18 124/66 (85) 99 Room Air 06/13/17 23:59 98 Room Air 06/13/17 23:34 36.9 86 18 128/82 (97) 98 Room Air 06/13/17 20:35 133/89 (104) 06/13/17 20:00 Room Air 06/13/17 19:45 165/92 (116) 06/13/17 19:00 36.7 77 22 170/105 (126) 100 Room Air 06/13/17 16:00 Room Air 06/13/17 15:22 36.7 78 22 163/103 (123) 94 Room Air 06/13/17 12:00 Room Air 06/13/17 11:45 36.8 78 18 162/92 (115) 96 Room Air Laboratory Results 24 Hours: Test 06/14/17 06:34 White Blood Count 6.07 K/uL Red Blood Count 4.81 M/uL Hemoglobin 14.8 g/dL Hematocrit 42.2 % Mean Corpuscular Volume 87.7 fL Mean Corpuscular Hemoglobin 30.8 pg Mean Corpuscular Hemoglobin Concent 35.1 g/dl Platelet Count 71 K/uL Mean Platelet Volume 9.5 fL Neutrophils (%) (Auto) 49.3 % Lymphocytes (%) (Auto) 29.5 % Monocytes (%) (Auto) 17.1 % Eosinophils (%) (Auto) 3.6 % Basophils (%) (Auto) 0.3 % Neutrophils # (Auto) 2.99 K/uL Lymphocytes # (Auto) 1.79 K/uL Monocytes # (Auto) 1.04 K/uL Eosinophils # (Auto) 0.22 K/uL Basophils # (Auto) 0.02 K/uL Assessment gait dysfunction with fall hx,balance issues. xrays reviewed and no change in hardware alignment hip and no fracture knee ,osteopenia of bones likely osteoporosis. Plan physical therapy for strengthening and balance , may need rehab stay. will sign off .
--- NOTE | 2017-06-14 17:21 | PROGRESS NOTE ---
DATE: 06/14/2017 Aaron looks great today. There is minimal tremor. He has no recall of the events that occurred after he received the IV Ativan prior to the MRI yesterday. The study showed no infarctions other than the old changes that were present earlier. He has had no evidence for new significant hip issue and was up walking with a therapist there using a walker today which he has at home. The question now is whether he is going to go back to [facility] for some more rehabilitation or back to his apartment which apparently he just received through the local homeless agency. This is going to be his decision and at this point I think neurology has little more to offer. 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 With the exception of minor tremor of the outstretched hands, his exam and the evidence for mild polyneuropathy, his exam is normal and does not show any lateralizing features or significant cerebellar signs. I am going to sign off the case at this point. Neurology will be available for reevaluation if things change. LUIS EDUARDO
--- NOTE | 2017-06-14 20:48 | Progress Note ---
Medicine Progress Note Date & Time of Visit: Jun 14, 2017 at 20:46. Subjective seen resting in bed, comfortable alert, oriented x 3 not in distress states leg strength is improved some has difficulty ambulating due to being off balance, feet not as strong denies other problems Objective Last 8 Hrs Date Time Temp Pulse Resp B/P (MAP) Pulse Ox O2 Delivery O2 Flow Rate FiO2 06/14/17 16:00 Room Air 06/14/17 15:29 37.0 101 20 146/94 (111) 97 Room Air Physical Exam: General- oriented x 3, not in distress, speaks in sentences with no effort Head- atraumatic Eyes- PERRL, EOMI, anicteric ENT- oropharynx clear Neck- supple, no JVD Lungs- clear breath sounds bilaterally Heart- regular rhythm; no murmur, normal rate, regular rhythm Abdomen- normal bowel sounds, soft, nontender Extremities- no pretibial edema, no calf tenderness Neuro- alert, oriented x 3; PERRL, EOMI; no facial palsy; no dysarthria; motor 5 /5 bilaterally; sensation 100% no other gross focal deficits Skin- warm & dry Laboratory Results: Last 24 Hours Test 06/14/17 06:34 White Blood Count 6.07 K/uL Red Blood Count 4.81 M/uL Hemoglobin 14.8 g/dL Hematocrit 42.2 % Mean Corpuscular Volume 87.7 fL Mean Corpuscular Hemoglobin 30.8 pg Mean Corpuscular Hemoglobin Concent 35.1 g/dl Platelet Count 71 K/uL Mean Platelet Volume 9.5 fL Neutrophils (%) (Auto) 49.3 % Lymphocytes (%) (Auto) 29.5 % Monocytes (%) (Auto) 17.1 % Eosinophils (%) (Auto) 3.6 % Basophils (%) (Auto) 0.3 % Neutrophils # (Auto) 2.99 K/uL Lymphocytes # (Auto) 1.79 K/uL Monocytes # (Auto) 1.04 K/uL Eosinophils # (Auto) 0.22 K/uL Basophils # (Auto) 0.02 K/uL RDW Standard Deviation 46.9 fL RDW Coefficient of Variation 14.6 % Immature Granulocyte % (Auto) 0.2 % Immature Granulocyte # (Auto) 0.01 K/uL Large Platelets 1+ Sodium Level 132 mmol/L Potassium Level 3.8 mmol/L Chloride Level 98 mmol/L Carbon Dioxide Level 28 mmol/L Anion Gap 6.0 mmol/L Blood Urea Nitrogen 11 mg/dl Creatinine 0.68 mg/dl Est Creatinine Clear Calc Drug Dose 107.8 ml/min Estimated GFR () 127.3 Estimated GFR (Non- 109.8 BUN/Creatinine Ratio 15.9 Random Glucose 83 mg/dl Calcium Level 8.6 mg/dl Assessment & Plan 1. Bilateral lower extremity weakness, gait imbalance, possible Polyneuropathy history of cerebrovascular accident on an old CAT scans -- Brain MRI: 1. No acute infarct. 2. Old lacunar infarct within the left basal ganglia, unchanged. 3. Stable ventricular prominence. This is nonspecific but favors central volume loss. 4. Presumed minimal microvascular ischemic change. -- evaluated by Dr. Ji will need inpatient Rehab/SNF hold ASA due to thrombocytopenia of 70k Right Hip Pain -- s/p Hip Surgery 02/2017 -- Hip xrays: unrevealing appreciate Dr. Kang's recommendations 2. Hypertensive urgency secondary to above. -- Amlodipine ordered PRN Clonidine -- improving 3. Past tobacco abuse -- counselling 4, ongoing alcohol abuse -- Alcohol Withdrawal Protocol including Gabapentin taper, PRN Ativan 5. Thrombocytopenia ro HIT -- HIT screen negative monitor Plt, hold ASA monitor 6. Hypokalemia. -- monitor and replete 7. Chronic anemia, hemoglobin better than baseline DVT prophylaxis SCDs due to thrombocytopenia Full Code Disposition may need Rehab or SNF Current Inpatient Medications: Current Inpatient Medications Medications (Trade) Dose Ordered Sig/Jaylene Route Start Time Stop Time Status Last Admin Dose Admin Ioversol (Optiray 320) 100 ml UD PRN IV 06/13/17 01:15 06/17/17 01:14 Acetaminophen (Tylenol Tab) 650 mg Q4H PRN PO 06/13/17 06:00 07/13/17 05:59 06/13/17 23:23 650 MG Nitroglycerin (Nitrostat Tab) 0.4 mg UD PRN SL 06/13/17 06:00 07/13/17 05:59 Miscellaneous Information (Pharmacist Discharge Med Rec Consult) 1 ea UD PRN N/A 06/13/17 06:00 07/13/17 05:59 Oxycodone/ Acetaminophen (Percocet 5-325mg Tab) 1 tab Q6H PRN PO 06/13/17 06:00 06/27/17 05:59 Morphine Sulfate (MoRPHine SULFATE INJ) 2 mg Q4H PRN IV 06/13/17 06:00 06/27/17 05:59 Cyanocobalamin (Vitamin B-12 Tab) 100 mcg DAILY PO 06/13/17 09:00 07/13/17 08:59 06/14/17 08:26 100 MCG Thiamine HCl (Vitamin B-1 Tab) 100 mg QAM PO 06/14/17 09:00 07/14/17 08:59 06/14/17 08:24 100 MG Multivitamins (Multivitamin Tab) 1 tab QAM PO 06/14/17 09:00 07/14/17 08:59 06/14/17 08:24 1 TAB Folic Acid (Folvite Tab) 1 mg QAM PO 06/14/17 09:00 07/14/17 08:59 06/14/17 08:26 1 MG Ondansetron HCl (Zofran Inj) 4 mg Q6H PRN IV 06/13/17 06:00 07/13/17 05:59 Aspirin (Ecotrin Tab) 81 mg QAM PO 06/14/17 09:00 07/14/17 08:59 06/14/17 08:25 81 MG Lorazepam (Ativan Inj) PRN Dosing -Active Protocol Q1H PRN IV 06/13/17 06:00 07/13/17 05:59 06/13/17 11:35 1 MG Miscellaneous (Iv Fluids Completed) 1 ea PRN PRN N/A 06/13/17 06:15 06/13/18 06:14 Gabapentin (Neurontin Tab) 600 mg Q8H PO 06/14/17 06:00 06/14/17 22:01 06/14/17 13:36 600 MG Gabapentin (Neurontin Tab) 600 mg Q12H PO 06/15/17 10:00 06/15/17 22:01 Gabapentin (Neurontin Tab) 600 mg Q24H PO 06/16/17 22:00 06/16/17 22:01 Amlodipine Besylate (Norvasc Tab) 2.5 mg QAM PO 06/13/17 09:00 07/13/17 08:59 06/14/17 08:25 2.5 MG Clonidine HCl (Catapres Tab) 0.1 mg Q6H PRN PO 06/13/17 09:00 07/13/17 08:59 06/13/17 19:00 0.1 MG
[2017-06-14] MEDS: ACETAMINOPHEN 325 MG TAB PO PRN (22:03)
[2017-06-15] VITALS (7 sets, daily range): BP systolic 119–188; BP diastolic 72–104; PULSE 78–98; TEMP 36.3–37; O2SAT 95–100
[2017-06-15 06:32] LABS: HEMATOCRIT 38.8 % (42-52); MEAN CELL VOLUME 87.2 fL (80-100); MEAN CORPUSCULAR HEMOGLOBIN 30.1 pg (25-34); MEAN CORPUSCULAR HGB CONC 34.5 g/dl (32-36); RED BLOOD COUNT 4.45 M/uL (4.7-6.1); WHITE BLOOD COUNT 7.55 K/uL (4.8-10.8)
[2017-06-15] MEDS: ACETAMINOPHEN 325 MG TAB PO PRN ×2 (06:37→10:58)
[2017-06-15 06:54] LABS: BASO % 0.1 %; BASO ABS # 0.01 K/uL (0-0.2); COMPLETE YES; EOS % 2.8 %; IG% 0.1 %; LYMPH % 27.9 %; LYMPH ABS # 2.11 K/uL (1.2-3.4); MEAN PLATELET VOLUME 10.1 fL (7.4-10.4); MONO % 14.7 %; NEUT % 54.4 %; PLATELET COUNT 80 K/uL (130-400)
[2017-06-15] MEDS: THIAMINE HCL 100 MG TAB PO SCH (09:45)
[2017-06-15] MEDS: CYANOCOBALAMIN 100 MCG TAB (VIT B-12) PO SCH (09:46)
[2017-06-15] MEDS: MULTIVITAMIN TAB PO SCH (09:46)
[2017-06-15] MEDS: GABAPENTIN 600MG Q12H DOSE PO SCH ×2 (09:46→23:57)
[2017-06-15] MEDS: AMLODIPINE BESYLATE 5 MG TAB PO SCH (09:47)
[2017-06-15] MEDS: CLONIDINE HCL 0.1 MG TAB PO PRN (11:52)
[2017-06-15] MEDS: OXYCODONE/ACETAMINOPHEN 5-325 TAB PO PRN ×2 (13:24→19:37)
--- NOTE | 2017-06-15 18:48 | Progress Note ---
Medicine Progress Note Date & Time of Visit: Jun 15, 2017 at 18:45. Subjective patient seen resting in chair, having dinner alert, oriented states he had a lot of hip pain while walking today leg strength improving denies tremors, anxiety, sweating, confusion no other symptoms Objective Last 8 Hrs Date Time Temp Pulse Resp B/P (MAP) Pulse Ox O2 Delivery O2 Flow Rate FiO2 06/15/17 16:01 Room Air 06/15/17 15:27 36.7 80 16 119/72 (88) 97 Room Air 06/15/17 12:28 80 151/91 (111) 06/15/17 12:00 Room Air 06/15/17 11:44 37.0 93 20 163/104 (123) 97 Room Air 161/102 (121) Physical Exam: General- oriented x 3, not in distress, speaks in sentences with no effort Eyes- EOMI, anicteric Neck- no JVD Lungs- clear breath sounds bilaterally, no rales/wheezes Heart- regular rhythm; no murmur, normal rate Abdomen- normal bowel sounds, soft, nontender Extremities- no pretibial edema, no calf tenderness Neuro- alert, oriented x 3; no gross focal deficits Skin- warm & dry Laboratory Results: Last 24 Hours Test 06/15/17 06:13 White Blood Count 7.55 K/uL Red Blood Count 4.45 M/uL Hemoglobin 13.4 g/dL Hematocrit 38.8 % Mean Corpuscular Volume 87.2 fL Mean Corpuscular Hemoglobin 30.1 pg Mean Corpuscular Hemoglobin Concent 34.5 g/dl Platelet Count 80 K/uL Mean Platelet Volume 10.1 fL Neutrophils (%) (Auto) 54.4 % Lymphocytes (%) (Auto) 27.9 % Monocytes (%) (Auto) 14.7 % Eosinophils (%) (Auto) 2.8 % Basophils (%) (Auto) 0.1 % Neutrophils # (Auto) 4.10 K/uL Lymphocytes # (Auto) 2.11 K/uL Monocytes # (Auto) 1.11 K/uL Eosinophils # (Auto) 0.21 K/uL Basophils # (Auto) 0.01 K/uL RDW Standard Deviation 45.8 fL RDW Coefficient of Variation 14.5 % Immature Granulocyte % (Auto) 0.1 % Immature Granulocyte # (Auto) 0.01 K/uL Assessment & Plan Bilateral lower extremity weakness, gait imbalance, possible Polyneuropathy history of cerebrovascular accident on an old CAT scans -- Brain MRI: 1. No acute infarct. 2. Old lacunar infarct within the left basal ganglia, unchanged. 3. Stable ventricular prominence. This is nonspecific but favors central volume loss. 4. Presumed minimal microvascular ischemic change. -- evaluated by Dr. Ji hold ASA due to thrombocytopenia of 80k -- making progress with PT repeat PT/OT in AM monitor Right Hip Pain -- s/p Hip Surgery 02/2017 -- Hip xrays: unrevealing appreciate Dr. Kang's recommendations Hypertensive urgency secondary to above. -- Amlodipine ordered PRN Clonidine -- improving Past tobacco abuse -- counselling ongoing alcohol abuse -- Alcohol Withdrawal Protocol including Gabapentin taper, PRN Ativan Thrombocytopenia ro HIT -- HIT screen negative Plt 80k to 7ok to 80k monitor Plt, hold ASA monitor Hypokalemia. -- monitor and replete Chronic anemia, hemoglobin better than baseline DVT prophylaxis SCDs due to thrombocytopenia Full Code Disposition may need Rehab or SNF , repeat PT/OT in AM Current Inpatient Medications: Current Inpatient Medications Medications (Trade) Dose Ordered Sig/Jaylene Route Start Time Stop Time Status Last Admin Dose Admin Ioversol (Optiray 320) 100 ml UD PRN IV 06/13/17 01:15 06/17/17 01:14 Acetaminophen (Tylenol Tab) 650 mg Q4H PRN PO 06/13/17 06:00 07/13/17 05:59 06/15/17 10:58 650 MG Nitroglycerin (Nitrostat Tab) 0.4 mg UD PRN SL 06/13/17 06:00 07/13/17 05:59 Miscellaneous Information (Pharmacist Discharge Med Rec Consult) 1 ea UD PRN N/A 06/13/17 06:00 07/13/17 05:59 Oxycodone/ Acetaminophen (Percocet 5-325mg Tab) 1 tab Q6H PRN PO 06/13/17 06:00 06/27/17 05:59 06/15/17 13:24 1 TAB Morphine Sulfate (MoRPHine SULFATE INJ) 2 mg Q4H PRN IV 06/13/17 06:00 06/27/17 05:59 Cyanocobalamin (Vitamin B-12 Tab) 100 mcg DAILY PO 06/13/17 09:00 07/13/17 08:59 06/15/17 09:46 100 MCG Thiamine HCl (Vitamin B-1 Tab) 100 mg QAM PO 06/14/17 09:00 07/14/17 08:59 06/15/17 09:45 100 MG Multivitamins (Multivitamin Tab) 1 tab QAM PO 06/14/17 09:00 07/14/17 08:59 06/15/17 09:46 1 TAB Folic Acid (Folvite Tab) 1 mg QAM PO 06/14/17 09:00 07/14/17 08:59 06/15/17 09:45 1 MG Ondansetron HCl (Zofran Inj) 4 mg Q6H PRN IV 06/13/17 06:00 07/13/17 05:59 Lorazepam (Ativan Inj) PRN Dosing -Active Protocol Q1H PRN IV 06/13/17 06:00 07/13/17 05:59 06/13/17 11:35 1 MG Miscellaneous (Iv Fluids Completed) 1 ea PRN PRN N/A 06/13/17 06:15 06/13/18 06:14 Gabapentin (Neurontin Tab) 600 mg Q12H PO 06/15/17 10:00 06/15/17 22:01 06/15/17 09:46 600 MG Gabapentin (Neurontin Tab) 600 mg Q24H PO 06/16/17 22:00 06/16/17 22:01 Amlodipine Besylate (Norvasc Tab) 2.5 mg QAM PO 06/13/17 09:00 07/13/17 08:59 06/15/17 09:47 2.5 MG Clonidine HCl (Catapres Tab) 0.1 mg Q6H PRN PO 06/13/17 09:00 07/13/17 08:59 06/15/17 11:52 0.1 MG
[2017-06-16] MEDS: OXYCODONE/ACETAMINOPHEN 5-325 TAB PO PRN ×2 (03:38→21:31)
[2017-06-16 04:19] VITALS: BP 167/111; PULSE 76; TEMP 36.7; O2SAT 96
[2017-06-16 07:20] LABS: HEMATOCRIT 38.9 % (42-52); MEAN CELL VOLUME 88.8 fL (80-100); MEAN CORPUSCULAR HEMOGLOBIN 30.1 pg (25-34); MEAN CORPUSCULAR HGB CONC 33.9 g/dl (32-36); RED BLOOD COUNT 4.38 M/uL (4.7-6.1); WHITE BLOOD COUNT 7.98 K/uL (4.8-10.8)
[2017-06-16 07:36] LABS: MEAN PLATELET VOLUME 9.9 fL (7.4-10.4); PLATELET COUNT 97 K/uL (130-400)
[2017-06-16] MEDS: CYANOCOBALAMIN 100 MCG TAB (VIT B-12) PO SCH (07:37)
[2017-06-16] MEDS: THIAMINE HCL 100 MG TAB PO SCH (07:38)
[2017-06-16] MEDS: AMLODIPINE BESYLATE 5 MG TAB PO SCH (07:38)
[2017-06-16] MEDS: MULTIVITAMIN TAB PO SCH (07:38)
[2017-06-16 07:45] VITALS: BP 160/73; PULSE 74; TEMP 36.9; O2SAT 96
[2017-06-16 07:45] LABS: BASO % 0.3 %; BASO ABS # 0.02 K/uL (0-0.2); COMPLETE YES; EOS % 2.3 %; IG% 0.3 %; LYMPH % 29.1 %; LYMPH ABS # 2.32 K/uL (1.2-3.4); MONO % 16.2 %; NEUT % 51.8 %
[2017-06-16 07:53] LABS: BUN/CREATININE RATIO 18.2 (10-20); CALCIUM 8.8 mg/dl (8.5-10.1); CREATININE 0.61 mg/dl (0.60-1.40); POTASSIUM 4.1 mmol/L (3.5-5.1)
[2017-06-16 09:45] VITALS: BP 160/73; PULSE 74; TEMP 36.9; O2SAT 96
[2017-06-16 15:28] VITALS: BP 105/66; PULSE 92; TEMP 36.9; O2SAT 96
--- NOTE | 2017-06-16 18:38 | Progress Note ---
Medicine Progress Note Date & Time of Visit: Jun 16, 2017 at 18:35. Subjective seen resting in chair, comfortable states hip pain is better today tolerated PT better denies tremors, anxiety, sweats no other symptoms Objective Last 8 Hrs Date Time Temp Pulse Resp B/P (MAP) Pulse Ox O2 Delivery O2 Flow Rate FiO2 06/16/17 16:00 Room Air 06/16/17 15:28 36.9 92 18 105/66 (79) 96 Room Air Physical Exam: General- oriented x 3, not in distress, speaks in sentences with no effort Eyes- anicteric Neck- no JVD Lungs- clear breath sounds bilaterally Heart- regular rhythm; no murmur, normal rate Abdomen- normal bowel sounds, soft, nontender Extremities- no pretibial edema, no calf tenderness Neuro- alert, oriented x 3; no gross focal deficits Skin- warm & dry Laboratory Results: Last 24 Hours Test 06/16/17 06:55 White Blood Count 7.98 K/uL Red Blood Count 4.38 M/uL Hemoglobin 13.2 g/dL Hematocrit 38.9 % Mean Corpuscular Volume 88.8 fL Mean Corpuscular Hemoglobin 30.1 pg Mean Corpuscular Hemoglobin Concent 33.9 g/dl Platelet Count 97 K/uL Mean Platelet Volume 9.9 fL Neutrophils (%) (Auto) 51.8 % Lymphocytes (%) (Auto) 29.1 % Monocytes (%) (Auto) 16.2 % Eosinophils (%) (Auto) 2.3 % Basophils (%) (Auto) 0.3 % Neutrophils # (Auto) 4.15 K/uL Lymphocytes # (Auto) 2.32 K/uL Monocytes # (Auto) 1.29 K/uL Eosinophils # (Auto) 0.18 K/uL Basophils # (Auto) 0.02 K/uL RDW Standard Deviation 47.6 fL RDW Coefficient of Variation 14.8 % Immature Granulocyte % (Auto) 0.3 % Immature Granulocyte # (Auto) 0.02 K/uL Sodium Level 134 mmol/L Potassium Level 4.1 mmol/L Chloride Level 99 mmol/L Carbon Dioxide Level 29 mmol/L Anion Gap 6.0 mmol/L Blood Urea Nitrogen 11 mg/dl Creatinine 0.61 mg/dl Est Creatinine Clear Calc Drug Dose 123.0 ml/min Estimated GFR () 133.1 Estimated GFR (Non- 114.8 BUN/Creatinine Ratio 18.2 Random Glucose 86 mg/dl Calcium Level 8.8 mg/dl Assessment & Plan Bilateral lower extremity weakness, gait imbalance, possible Polyneuropathy history of cerebrovascular accident on an old CAT scans -- Brain MRI: 1. No acute infarct. 2. Old lacunar infarct within the left basal ganglia, unchanged. 3. Stable ventricular prominence. This is nonspecific but favors central volume loss. 4. Presumed minimal microvascular ischemic change. -- evaluated by Dr. Ji resume Aspirin 81mg po daily -- making progress with PT repeat PT/OT daily plan to transfer to [facility] when bed is available monitor Right Hip Pain -- s/p Hip Surgery 02/2017 -- Hip xrays: unrevealing appreciate Dr. Kang's recommendations --- improving Hypertensive urgency secondary to above. -- Amlodipine ordered PRN Clonidine -- improving Past tobacco abuse -- counselling ongoing alcohol abuse -- Alcohol Withdrawal Protocol including Gabapentin taper, PRN Ativan Thrombocytopenia ro HIT -- HIT screen negative Plt 80k to 7ok to 80k resume ASA monitor Hypokalemia. -- monitor and replete Chronic anemia, hemoglobin better than baseline DVT prophylaxis SCDs due to thrombocytopenia Full Code Disposition d/c to [facility] when bed available Current Inpatient Medications: Current Inpatient Medications Medications (Trade) Dose Ordered Sig/Jaylene Route Start Time Stop Time Status Last Admin Dose Admin Ioversol (Optiray 320) 100 ml UD PRN IV 06/13/17 01:15 06/17/17 01:14 Acetaminophen (Tylenol Tab) 650 mg Q4H PRN PO 06/13/17 06:00 07/13/17 05:59 06/15/17 10:58 650 MG Nitroglycerin (Nitrostat Tab) 0.4 mg UD PRN SL 06/13/17 06:00 07/13/17 05:59 Oxycodone/ Acetaminophen (Percocet 5-325mg Tab) 1 tab Q6H PRN PO 06/13/17 06:00 06/27/17 05:59 06/16/17 03:38 1 TAB Morphine Sulfate (MoRPHine SULFATE INJ) 2 mg Q4H PRN IV 06/13/17 06:00 06/27/17 05:59 Cyanocobalamin (Vitamin B-12 Tab) 100 mcg DAILY PO 06/13/17 09:00 07/13/17 08:59 06/16/17 07:37 100 MCG Thiamine HCl (Vitamin B-1 Tab) 100 mg QAM PO 06/14/17 09:00 07/14/17 08:59 06/16/17 07:38 100 MG Multivitamins (Multivitamin Tab) 1 tab QAM PO 06/14/17 09:00 07/14/17 08:59 06/16/17 07:38 1 TAB Folic Acid (Folvite Tab) 1 mg QAM PO 06/14/17 09:00 07/14/17 08:59 06/16/17 07:37 1 MG Ondansetron HCl (Zofran Inj) 4 mg Q6H PRN IV 06/13/17 06:00 07/13/17 05:59 Lorazepam (Ativan Inj) PRN Dosing -Active Protocol Q1H PRN IV 06/13/17 06:00 07/13/17 05:59 06/13/17 11:35 1 MG Miscellaneous (Iv Fluids Completed) 1 ea PRN PRN N/A 06/13/17 06:15 06/13/18 06:14 Gabapentin (Neurontin Tab) 600 mg Q24H PO 06/16/17 22:00 06/16/17 22:01 Amlodipine Besylate (Norvasc Tab) 2.5 mg QAM PO 06/13/17 09:00 07/13/17 08:59 06/16/17 07:38 2.5 MG Clonidine HCl (Catapres Tab) 0.1 mg Q6H PRN PO 06/13/17 09:00 07/13/17 08:59 06/15/17 11:52 0.1 MG
[2017-06-16] MEDS ORDERED: GABAPENTIN 600MG X1 DOSE PO SCH (22:00)
[2017-06-16] MEDS: MoRPHine SULFATE 2 MG/ML CARP IV PRN ×2 (22:51→23:46)
[2017-06-16 23:17] VITALS: BP 195/77; PULSE 78; TEMP 36.3; O2SAT 99
[2017-06-16 23:45] VITALS: BP 171/94
[2017-06-17] MEDS: MULTIVITAMIN TAB PO SCH (07:24)
[2017-06-17] MEDS: OXYCODONE/ACETAMINOPHEN 5-325 TAB PO PRN ×2 (07:25→18:45)
[2017-06-17] MEDS: AMLODIPINE BESYLATE 5 MG TAB PO SCH (07:25)
[2017-06-17] MEDS: CYANOCOBALAMIN 100 MCG TAB (VIT B-12) PO SCH (07:25)
[2017-06-17] MEDS: THIAMINE HCL 100 MG TAB PO SCH (07:25)
[2017-06-17 07:31] VITALS: BP 167/98; PULSE 66; TEMP 36.7; O2SAT 99
[2017-06-17 07:46] LABS: BASO % 0.6 %; BASO ABS # 0.04 K/uL (0-0.2); COMPLETE YES; EOS % 2.2 %; HEMATOCRIT 40.3 % (42-52); IG% 0.3 %; LYMPH % 30.8 %; LYMPH ABS # 2.14 K/uL (1.2-3.4); MEAN CELL VOLUME 88.6 fL (80-100); MEAN CORPUSCULAR HEMOGLOBIN 30.8 pg (25-34); MEAN CORPUSCULAR HGB CONC 34.7 g/dl (32-36); MEAN PLATELET VOLUME 9.6 fL (7.4-10.4); MONO % 15.5 %; NEUT % 50.6 %; PLATELET COUNT 141 K/uL (130-400); RED BLOOD COUNT 4.55 M/uL (4.7-6.1); WHITE BLOOD COUNT 6.95 K/uL (4.8-10.8)
[2017-06-17 08:31] LABS: BUN/CREATININE RATIO 20.4 (10-20); CALCIUM 8.9 mg/dl (8.5-10.1); CREATININE 0.6 mg/dl (0.60-1.40); POTASSIUM 3.9 mmol/L (3.5-5.1)
[2017-06-17 15:59] VITALS: BP 161/92; PULSE 90; TEMP 36.6; O2SAT 99
--- NOTE | 2017-06-17 16:38 | Progress Note ---
Medicine Progress Note Date & Time of Visit: Jun 17, 2017 at 16:34. Subjective patient seen resting in chair comfortable states hip and knee pain, right is somewhat worse today otherwise feels fine denies other symptoms Objective Last 8 Hrs Date Time Temp Pulse Resp B/P (MAP) Pulse Ox O2 Delivery O2 Flow Rate FiO2 06/17/17 15:59 36.6 90 18 161/92 (115) 99 Room Air Physical Exam: General- oriented x 3, not in distress, speaks in sentences with no effort Lungs- clear breath sounds bilaterally, no rales/wheezes Heart- regular rhythm; no murmur, normal rate Abdomen- normal bowel sounds, soft, nontender Extremities- no pretibial edema, no calf tenderness Neuro- alert, oriented x 3; no gross focal deficits Skin- warm & dry Laboratory Results: Last 24 Hours Test 06/17/17 07:13 White Blood Count 6.95 K/uL Red Blood Count 4.55 M/uL Hemoglobin 14.0 g/dL Hematocrit 40.3 % Mean Corpuscular Volume 88.6 fL Mean Corpuscular Hemoglobin 30.8 pg Mean Corpuscular Hemoglobin Concent 34.7 g/dl Platelet Count 141 K/uL Mean Platelet Volume 9.6 fL Neutrophils (%) (Auto) 50.6 % Lymphocytes (%) (Auto) 30.8 % Monocytes (%) (Auto) 15.5 % Eosinophils (%) (Auto) 2.2 % Basophils (%) (Auto) 0.6 % Neutrophils # (Auto) 3.52 K/uL Lymphocytes # (Auto) 2.14 K/uL Monocytes # (Auto) 1.08 K/uL Eosinophils # (Auto) 0.15 K/uL Basophils # (Auto) 0.04 K/uL RDW Standard Deviation 47.6 fL RDW Coefficient of Variation 15.0 % Immature Granulocyte % (Auto) 0.3 % Immature Granulocyte # (Auto) 0.02 K/uL Sodium Level 133 mmol/L Potassium Level 3.9 mmol/L Chloride Level 98 mmol/L Carbon Dioxide Level 29 mmol/L Anion Gap 5.0 mmol/L Blood Urea Nitrogen 12 mg/dl Creatinine 0.60 mg/dl Est Creatinine Clear Calc Drug Dose 125.1 ml/min Estimated GFR () 134.0 Estimated GFR (Non- 115.6 BUN/Creatinine Ratio 20.4 Random Glucose 90 mg/dl Calcium Level 8.9 mg/dl Assessment & Plan Bilateral lower extremity weakness, gait imbalance, possible Polyneuropathy history of cerebrovascular accident on an old CAT scans -- Brain MRI: 1. No acute infarct. 2. Old lacunar infarct within the left basal ganglia, unchanged. 3. Stable ventricular prominence. This is nonspecific but favors central volume loss. 4. Presumed minimal microvascular ischemic change. -- evaluated by Dr. Ji resume Aspirin 81mg po daily -- making progress with PT repeat PT/OT daily plan to transfer to [facility] when bed is available monitor Right Hip Pain -- s/p Hip Surgery 02/2017 -- Hip xrays: unrevealing appreciate Dr. Kang's recommendations --- improving, monitor Hypertensive urgency secondary to above. -- Amlodipine ordered PRN Clonidine -- increase Amlodipine to 5mg po daily Past tobacco abuse -- counselling ongoing alcohol abuse -- Alcohol Withdrawal Protocol including Gabapentin taper, PRN Ativan Thrombocytopenia ro HIT -- HIT screen negative Plt 80k to 7ok to 80k--> 100 resume ASA monitor Hypokalemia. -- monitor and replete Chronic anemia, hemoglobin better than baseline DVT prophylaxis SCDs due to thrombocytopenia encouraged to ambulate Full Code Disposition d/c to [facility] when bed available Current Inpatient Medications: Current Inpatient Medications Medications (Trade) Dose Ordered Sig/Jaylene Route Start Time Stop Time Status Last Admin Dose Admin Acetaminophen (Tylenol Tab) 650 mg Q4H PRN PO 06/13/17 06:00 07/13/17 05:59 06/15/17 10:58 650 MG Nitroglycerin (Nitrostat Tab) 0.4 mg UD PRN SL 06/13/17 06:00 07/13/17 05:59 Oxycodone/ Acetaminophen (Percocet 5-325mg Tab) 1 tab Q6H PRN PO 06/13/17 06:00 06/27/17 05:59 06/17/17 07:25 1 TAB Morphine Sulfate (MoRPHine SULFATE INJ) 2 mg Q4H PRN IV 06/13/17 06:00 06/27/17 05:59 06/16/17 23:46 2 MG Cyanocobalamin (Vitamin B-12 Tab) 100 mcg DAILY PO 06/13/17 09:00 07/13/17 08:59 06/17/17 07:25 100 MCG Thiamine HCl (Vitamin B-1 Tab) 100 mg QAM PO 06/14/17 09:00 07/14/17 08:59 06/17/17 07:25 100 MG Multivitamins (Multivitamin Tab) 1 tab QAM PO 06/14/17 09:00 07/14/17 08:59 06/17/17 07:24 1 TAB Folic Acid (Folvite Tab) 1 mg QAM PO 06/14/17 09:00 07/14/17 08:59 06/17/17 07:24 1 MG Ondansetron HCl (Zofran Inj) 4 mg Q6H PRN IV 06/13/17 06:00 07/13/17 05:59 Lorazepam (Ativan Inj) PRN Dosing -Active Protocol Q1H PRN IV 06/13/17 06:00 07/13/17 05:59 06/13/17 11:35 1 MG Miscellaneous (Iv Fluids Completed) 1 ea PRN PRN N/A 06/13/17 06:15 06/13/18 06:14 Amlodipine Besylate (Norvasc Tab) 2.5 mg QAM PO 06/13/17 09:00 07/13/17 08:59 06/17/17 07:25 2.5 MG Clonidine HCl (Catapres Tab) 0.1 mg Q6H PRN PO 06/13/17 09:00 07/13/17 08:59 06/15/17 11:52 0.1 MG
[2017-06-17] MEDS ORDERED: ASPIRIN 81 MG ECTAB PO ONE (17:00)
[2017-06-17] MEDS: ACETAMINOPHEN 325 MG TAB PO PRN (21:54)
[2017-06-17 23:49] VITALS: BP 163/94; PULSE 76; TEMP 36.6; O2SAT 97
[2017-06-18] MEDS: OXYCODONE/ACETAMINOPHEN 5-325 TAB PO PRN ×4 (01:01→21:45)
[2017-06-18 07:17] VITALS: BP 177/97; PULSE 77; TEMP 36.5; O2SAT 98
[2017-06-18] MEDS: AMLODIPINE BESYLATE 5 MG TAB PO SCH (07:41)
[2017-06-18] MEDS: ASPIRIN 81 MG ECTAB PO SCH (07:41)
[2017-06-18] MEDS: THIAMINE HCL 100 MG TAB PO SCH (07:41)
[2017-06-18] MEDS: MULTIVITAMIN TAB PO SCH (07:41)
[2017-06-18] MEDS: CYANOCOBALAMIN 100 MCG TAB (VIT B-12) PO SCH (07:41)
[2017-06-18 15:32] VITALS: BP 126/81; PULSE 79; TEMP 36.8; O2SAT 99
--- NOTE | 2017-06-18 19:32 | Progress Note ---
Medicine Progress Note Date & Time of Visit: Jun 18, 2017 at 19:30. Subjective patient states he feels ok today has mild hip pain ambulates ok denies tremors, sweats, anxiety no other symptoms Objective Last 8 Hrs Date Time Temp Pulse Resp B/P (MAP) Pulse Ox O2 Delivery O2 Flow Rate FiO2 06/18/17 16:00 Room Air 06/18/17 15:32 36.8 79 16 126/81 (96) 99 Room Air Physical Exam: General- oriented x 3, not in distress, speaks in sentences with no effort Lungs- clear BS bilaterally, no rales/wheezes Heart- regular rhythm; no murmur, normal rate Abdomen- normal bowel sounds, soft, nontender Extremities- no pretibial edema, no calf tenderness Neuro- alert, oriented x 3; no gross focal deficits Skin- warm & dry Assessment & Plan Bilateral lower extremity weakness, gait imbalance, possible Polyneuropathy history of cerebrovascular accident on an old CAT scans -- Brain MRI: 1. No acute infarct. 2. Old lacunar infarct within the left basal ganglia, unchanged. 3. Stable ventricular prominence. This is nonspecific but favors central volume loss. 4. Presumed minimal microvascular ischemic change. -- evaluated by Dr. Ji resumed Aspirin 81mg po daily -- making progress with PT repeat PT/OT daily plan to transfer to [facility] when bed is available monitor Right Hip Pain -- s/p Hip Surgery 02/2017 -- Hip xrays: unrevealing appreciate Dr. Kang's recommendations --- improving, monitor Hypertensive urgency secondary to above. -- Amlodipine ordered PRN Clonidine -- increase Amlodipine to 5mg po daily BP improving Past tobacco abuse -- counselling ongoing alcohol abuse -- Alcohol Withdrawal Protocol including Gabapentin taper, PRN Ativan Thrombocytopenia ro HIT -- HIT screen negative Plt 80k to 7ok to 80k--> 100 resumed ASA monitor Hypokalemia. -- monitor and replete Chronic anemia, hemoglobin better than baseline DVT prophylaxis SCDs due to thrombocytopenia encouraged to ambulate Full Code Disposition d/c to [facility] when bed available Current Inpatient Medications: Current Inpatient Medications Medications (Trade) Dose Ordered Sig/Jaylene Route Start Time Stop Time Status Last Admin Dose Admin Acetaminophen (Tylenol Tab) 650 mg Q4H PRN PO 06/13/17 06:00 07/13/17 05:59 06/17/17 21:54 650 MG Nitroglycerin (Nitrostat Tab) 0.4 mg UD PRN SL 06/13/17 06:00 07/13/17 05:59 Oxycodone/ Acetaminophen (Percocet 5-325mg Tab) 1 tab Q6H PRN PO 06/13/17 06:00 06/27/17 05:59 06/18/17 13:37 1 TAB Morphine Sulfate (MoRPHine SULFATE INJ) 2 mg Q4H PRN IV 06/13/17 06:00 06/27/17 05:59 06/16/17 23:46 2 MG Cyanocobalamin (Vitamin B-12 Tab) 100 mcg DAILY PO 06/13/17 09:00 07/13/17 08:59 06/18/17 07:41 100 MCG Thiamine HCl (Vitamin B-1 Tab) 100 mg QAM PO 06/14/17 09:00 07/14/17 08:59 06/18/17 07:41 100 MG Multivitamins (Multivitamin Tab) 1 tab QAM PO 06/14/17 09:00 07/14/17 08:59 06/18/17 07:41 1 TAB Folic Acid (Folvite Tab) 1 mg QAM PO 06/14/17 09:00 07/14/17 08:59 06/18/17 07:41 1 MG Ondansetron HCl (Zofran Inj) 4 mg Q6H PRN IV 06/13/17 06:00 07/13/17 05:59 Lorazepam (Ativan Inj) PRN Dosing -Active Protocol Q1H PRN IV 06/13/17 06:00 07/13/17 05:59 06/13/17 11:35 1 MG Miscellaneous (Iv Fluids Completed) 1 ea PRN PRN N/A 06/13/17 06:15 06/13/18 06:14 Clonidine HCl (Catapres Tab) 0.1 mg Q6H PRN PO 06/13/17 09:00 07/13/17 08:59 06/15/17 11:52 0.1 MG Aspirin (Ecotrin Tab) 81 mg QAM PO 06/18/17 08:00 07/18/17 07:59 06/18/17 07:41 81 MG Amlodipine Besylate (Norvasc Tab) 5 mg QAM PO 06/18/17 08:00 07/13/17 08:59 06/18/17 07:41 5 MG
[2017-06-18 22:41] VITALS: BP 163/91; PULSE 71; TEMP 36.6; O2SAT 100
[2017-06-19] MEDS: ACETAMINOPHEN 325 MG TAB PO PRN ×2 (02:09→13:39)
[2017-06-19] MEDS: OXYCODONE/ACETAMINOPHEN 5-325 TAB PO PRN ×3 (04:05→20:45)
[2017-06-19 07:17] VITALS: BP 149/91; PULSE 65; TEMP 36.7; O2SAT 98
[2017-06-19] MEDS: AMLODIPINE BESYLATE 5 MG TAB PO SCH (08:15)
[2017-06-19] MEDS: CYANOCOBALAMIN 100 MCG TAB (VIT B-12) PO SCH (08:15)
[2017-06-19] MEDS: MULTIVITAMIN TAB PO SCH (08:15)
[2017-06-19] MEDS: THIAMINE HCL 100 MG TAB PO SCH (08:15)
[2017-06-19] MEDS: ASPIRIN 81 MG ECTAB PO SCH (08:15)
[2017-06-19 15:19] VITALS: BP 142/83; PULSE 83; TEMP 36.5; O2SAT 97
--- NOTE | 2017-06-19 20:18 | Progress Note ---
Medicine Progress Note Date & Time of Visit: Jun 19, 2017 at 20:14. Subjective patient seen resting bed, states he feels ok today has some mild hip pain but tolerable no chest tovar, dyspnea, palpitations, dizziness no other symptoms Objective Last 8 Hrs Date Time Temp Pulse Resp B/P (MAP) Pulse Ox O2 Delivery O2 Flow Rate FiO2 06/19/17 15:19 36.5 83 16 142/83 (102) 97 Room Air Physical Exam: General- oriented x 3, not in distress, speaks in sentences with no effort Lungs- clear BS BL, no rales/wheezes Heart- regular rhythm; no murmurs, normal rate Abdomen- normal bowel sounds, soft, nontender Extremities- no pretibial edema, no calf tenderness Neuro- alert, oriented x 3; no gross focal deficits Skin- warm & dry Assessment & Plan Bilateral lower extremity weakness, gait imbalance, possible Polyneuropathy history of cerebrovascular accident on an old CAT scans -- Brain MRI: 1. No acute infarct. 2. Old lacunar infarct within the left basal ganglia, unchanged. 3. Stable ventricular prominence. This is nonspecific but favors central volume loss. 4. Presumed minimal microvascular ischemic change. -- evaluated by Dr. Ji resumed Aspirin 81mg po daily -- ambulating better PT/OT re-evals today plan to d/c home Right Hip Pain -- s/p Hip Surgery 02/2017 -- Hip xrays: unrevealing appreciate Dr. Kang's recommendations --- improving, monitor Hypertensive urgency secondary to above. -- Amlodipine ordered PRN Clonidine -- increase Amlodipine to 5mg po daily BP improving Past tobacco abuse -- counselling ongoing alcohol abuse -- Alcohol Withdrawal Protocol including Gabapentin taper, PRN Ativan Thrombocytopenia ro HIT -- HIT screen negative Plt 80k to 7ok to 80k--> 100 resumed ASA monitor Hypokalemia. -- monitor and replete Chronic anemia, hemoglobin better than baseline DVT prophylaxis SCDs due to thrombocytopenia encouraged to ambulate Full Code Disposition anticipate d/c home tomorrow Current Inpatient Medications: Current Inpatient Medications Medications (Trade) Dose Ordered Sig/Jaylene Route Start Time Stop Time Status Last Admin Dose Admin Acetaminophen (Tylenol Tab) 650 mg Q4H PRN PO 06/13/17 06:00 07/13/17 05:59 06/19/17 13:39 650 MG Nitroglycerin (Nitrostat Tab) 0.4 mg UD PRN SL 06/13/17 06:00 07/13/17 05:59 Oxycodone/ Acetaminophen (Percocet 5-325mg Tab) 1 tab Q6H PRN PO 06/13/17 06:00 06/27/17 05:59 06/19/17 10:12 1 TAB Morphine Sulfate (MoRPHine SULFATE INJ) 2 mg Q4H PRN IV 06/13/17 06:00 06/27/17 05:59 06/16/17 23:46 2 MG Cyanocobalamin (Vitamin B-12 Tab) 100 mcg DAILY PO 06/13/17 09:00 07/13/17 08:59 06/19/17 08:15 100 MCG Thiamine HCl (Vitamin B-1 Tab) 100 mg QAM PO 06/14/17 09:00 07/14/17 08:59 06/19/17 08:15 100 MG Multivitamins (Multivitamin Tab) 1 tab QAM PO 06/14/17 09:00 07/14/17 08:59 06/19/17 08:15 1 TAB Folic Acid (Folvite Tab) 1 mg QAM PO 06/14/17 09:00 07/14/17 08:59 06/19/17 08:15 1 MG Ondansetron HCl (Zofran Inj) 4 mg Q6H PRN IV 06/13/17 06:00 07/13/17 05:59 Lorazepam (Ativan Inj) PRN Dosing -Active Protocol Q1H PRN IV 06/13/17 06:00 07/13/17 05:59 06/13/17 11:35 1 MG Miscellaneous (Iv Fluids Completed) 1 ea PRN PRN N/A 06/13/17 06:15 06/13/18 06:14 Clonidine HCl (Catapres Tab) 0.1 mg Q6H PRN PO 06/13/17 09:00 07/13/17 08:59 06/15/17 11:52 0.1 MG Aspirin (Ecotrin Tab) 81 mg QAM PO 06/18/17 08:00 07/18/17 07:59 06/19/17 08:15 81 MG Amlodipine Besylate (Norvasc Tab) 5 mg QAM PO 06/18/17 08:00 07/13/17 08:59 06/19/17 08:15 5 MG
[2017-06-20 00:02] VITALS: BP 143/88; PULSE 73; TEMP 36.8; O2SAT 98
[2017-06-20] MEDS: OXYCODONE/ACETAMINOPHEN 5-325 TAB PO PRN ×2 (03:34→12:13)
[2017-06-20 08:21] VITALS: BP 151/84; PULSE 107; TEMP 36.7; O2SAT 97
[2017-06-20] MEDS: MULTIVITAMIN TAB PO SCH (09:20)
[2017-06-20] MEDS: ASPIRIN 81 MG ECTAB PO SCH (09:20)
[2017-06-20] MEDS: CYANOCOBALAMIN 100 MCG TAB (VIT B-12) PO SCH (09:20)
[2017-06-20] MEDS: AMLODIPINE BESYLATE 5 MG TAB PO SCH (09:20)
[2017-06-20] MEDS: THIAMINE HCL 100 MG TAB PO SCH (09:20)
[2017-06-20] MEDS: ACETAMINOPHEN 325 MG TAB PO PRN (09:20)
--- NOTE | 2017-06-20 12:44 | Progress Note ---
Medicine Progress Note Date & Time of Visit: Jun 20, 2017 at 12:37. Subjective patient seen resting in bedside chair comfortable, bright, alert, having lunch kindly allowed me to examine him states he has right hip pain today, has good days and bad days able to ambulate in a stable manner though denies other symptoms states he is ready for discharge today Objective Last 8 Hrs Date Time Temp Pulse Resp B/P (MAP) Pulse Ox O2 Delivery O2 Flow Rate FiO2 06/20/17 08:50 Room Air 06/20/17 08:21 36.7 107 18 151/84 (106) 97 Room Air Physical Exam: General- oriented x 3, not in distress, speaks in sentences with no effort Lungs- clear breath sounds bilaterally Heart- regular rhythm; no murmurs, normal rate Abdomen- normal bowel sounds, soft, nontender Extremities- no pretibial edema, no calf tenderness Buttock/Hip- no tenderness, no swelling Neuro- alert, oriented x 3; no gross focal deficits Skin- warm & dry Assessment & Plan Bilateral lower extremity weakness, gait imbalance, possible Polyneuropathy history of cerebrovascular accident on an old CAT scans -- Brain MRI: 1. No acute infarct. 2. Old lacunar infarct within the left basal ganglia, unchanged. 3. Stable ventricular prominence. This is nonspecific but favors central volume loss. 4. Presumed minimal microvascular ischemic change. -- evaluated by Dr. Ji no other further work up at this time needs to be on ASA and Statin for old infarct patient has thrombocytopenia and fall risk re-evaluate as outpatient, if Platelets improve, consider ASA -- ambulating better PT/OT recommend to return home Right Hip Pain -- s/p Hip Surgery 02/2017 -- Hip xrays: unrevealing Consulted Ortho Dr. Kang no other intervention recommended at this time --- improving, monitor Hypertensive urgency secondary to above. -- Amlodipine ordered PRN Clonidine -- increased Amlodipine to 5mg po daily BP improving monitor as outpatient Past tobacco abuse -- counselling done Ongoing alcohol abuse -- Alcohol Withdrawal Protocol including Gabapentin taper, PRN Ativan no signs of alcohol withdrawal counselling done Thrombocytopenia -- HIT screen negative - likely from Alcoholism Plt 80k to 7ok to 80k--> 100 monitor as outpatient Hypokalemia. - replaced Chronic anemia - hemoglobin stable DVT prophylaxis SCDs due to thrombocytopenia encouraged to ambulate Full Code Disposition case management consulted patient will be discharged to home has declined home health services meals on wheels arrangements made ff up with PCP this week Current Inpatient Medications: Current Inpatient Medications Medications (Trade) Dose Ordered Sig/Jaylene Route Start Time Stop Time Status Last Admin Dose Admin Acetaminophen (Tylenol Tab) 650 mg Q4H PRN PO 06/13/17 06:00 07/13/17 05:59 06/20/17 09:20 650 MG Nitroglycerin (Nitrostat Tab) 0.4 mg UD PRN SL 06/13/17 06:00 07/13/17 05:59 Oxycodone/ Acetaminophen (Percocet 5-325mg Tab) 1 tab Q6H PRN PO 06/13/17 06:00 06/27/17 05:59 06/20/17 12:13 1 TAB Morphine Sulfate (MoRPHine SULFATE INJ) 2 mg Q4H PRN IV 06/13/17 06:00 06/27/17 05:59 06/16/17 23:46 2 MG Cyanocobalamin (Vitamin B-12 Tab) 100 mcg DAILY PO 06/13/17 09:00 07/13/17 08:59 06/20/17 09:20 100 MCG Thiamine HCl (Vitamin B-1 Tab) 100 mg QAM PO 06/14/17 09:00 07/14/17 08:59 06/20/17 09:20 100 MG Multivitamins (Multivitamin Tab) 1 tab QAM PO 06/14/17 09:00 07/14/17 08:59 06/20/17 09:20 1 TAB Folic Acid (Folvite Tab) 1 mg QAM PO 06/14/17 09:00 07/14/17 08:59 06/20/17 09:20 1 MG Ondansetron HCl (Zofran Inj) 4 mg Q6H PRN IV 06/13/17 06:00 07/13/17 05:59 Lorazepam (Ativan Inj) PRN Dosing -Active Protocol Q1H PRN IV 06/13/17 06:00 07/13/17 05:59 06/13/17 11:35 1 MG Miscellaneous (Iv Fluids Completed) 1 ea PRN PRN N/A 06/13/17 06:15 06/13/18 06:14 Clonidine HCl (Catapres Tab) 0.1 mg Q6H PRN PO 06/13/17 09:00 07/13/17 08:59 06/15/17 11:52 0.1 MG Aspirin (Ecotrin Tab) 81 mg QAM PO 06/18/17 08:00 07/18/17 07:59 06/20/17 09:20 81 MG Amlodipine Besylate (Norvasc Tab) 5 mg QAM PO 06/18/17 08:00 07/13/17 08:59 06/20/17 09:20 5 MG
[2017-06-20] MEDS ORDERED: MULT-890 PO (12:45)
[2017-06-20] MEDS ORDERED: NRV5 PO (12:45)
--- NOTE | 2017-06-20 12:53 | Discharge Instructions ---
Discharge Instructions Date of Service Jun 20, 2017. Admission Reason for Admission: Balance Disorder Discharge Discharge Diagnosis / Problem: LEG WEAKNESS Discharge Goals Goal(s): Diagnostic testing, Therapeutic intervention Activity Recommendations Activity Limitations: as noted below (INCREASE ACTIVITY TOLERATED, ALWAYS USE WALKER) Lifting Limitations: until after follow-up appointment Exercise/Sports Limitations: until after follow-up appointment . Instructions / Follow-Up Instructions / Follow-Up PLEASE REVIEW YOUR NEW MEDICATION LIST AND FOLLOW INSTRUCTIONS CAREFULLY. CALL PRIMARY CARE PHYSICIAN OR RETURN TO ER IMMEDIATELY IF WITH RECURRENCE OF SYMPTOMS. NO ALCOHOL AND SMOKING. ALWAYS USE WALKER AND BE CAREFUL WHEN AMBULATING. FOLLOW UP WITH PRIMARY CARE PHYSICIAN DR. TUTTLE IN [facility] [address] OFFICE ON 06/23/17 AT 11:00 AM. Current Hospital Diet Patient's current hospital diet: AHA Diet (Heart Healthy) Discharge Diet Recommended Diet: AHA Diet (Heart Healthy) Procedures Procedures Performed: CT SCAN OF THE CHEST, BRAIN MRI Pending Studies Studies pending at discharge: yes List of pending studies: REPEAT BLOOD WORK C/O PRIMARY CARE PHYSICIAN. Laboratory Results Lipid Panel Test 06/13/17 10:04 Range/Units Triglycerides Level 59 0-150 mg/dl Cholesterol Level 195 0-200 mg/dl HDL Cholesterol 128 mg/dl Cholesterol/HDL Ratio 1.5 LDL Cholesterol, Calculated 55 mg/dl Medical Emergencies . Who to Call and When: Medical Emergencies: If at any time you feel your situation is an emergency, please call 911 immediately. . Non-Emergent Contact Non-Emergency issues call your: Primary Care Provider Call Non-Emergent contact if: you have a fever, your pain is not controlled, your pain is worsening, you have any medication questions . . "Provider Documentation" section prepared by Romario Ratliff. . VTE Core Measure Inpt VTE Proph given/why not?: SCD's
[2017-06-20 12:58] VITALS: BP 151/84; PULSE 107; TEMP 36.7; O2SAT 97
--- NOTE | 2017-06-20 13:23 | Discharge Summary ---
Discharge Summary Date of Service Jun 20, 2017. Discharge Summary Admission Date: Jun 13, 2017 at 05:24 Discharge Date: Jun 20, 2017 Discharge Disposition: Home Principal Diagnosis: Bilateral lower extremity weakness, gait imbalance, likely from Polyneuropathy Secondary Diagnoses/Problems: Please refer to hospital course below. Procedures: ANGIOGRAPHY HEAD COMBO CLINICAL HISTORY: 51 years-old Male presents with acute weakness and ataxia with multiple falls COMPARISON STUDY: CTA of the neck of same day, CT head 02/25/2017 TECHNIQUE: Unenhanced axial CT scan of the brain is performed. Subsequently, following the IV administration of 119 cc of Optiray 320, CT angiogram of the brain was performed from the skull base to the vertex. Images are reviewed in the axial, sagittal, and coronal planes. 3-D MIPS images are created and assessed. IV contrast was administered without complication. A dose lowering technique was utilized adhering to the principles of ALARA. FINDINGS: CT BRAIN: There is no acute intracranial hemorrhage, midline shift, hydrocephalus, intracranial mass, territorial ischemia or abnormal extra-axial collections. No abnormal intra-axial or extra-axial enhancement. There is mild atrophy. Remote infarction of the left caudate nucleus. Mild background chronic microvascular ischemic changes. Mastoid air cells and middle ear cavities are clear. No calvarial fracture. Paranasal sinuses are clear. CT ANGIOGRAM OF THE BRAIN: The imaged bilateral internal carotid arteries are patent. The previously discussed short segment of decreased attenuation involving the anterior left M2 branch within sylvian fissure is not appreciated. The bilateral anterior and middle cerebral arteries are also patent. The vertebrobasilar system and posterior cerebral arteries are widely patent. There is no aneurysm, high-grade stenosis, or proximal branch occlusion identified. Note is made of origin of the right posterior cerebral artery. Dural sinuses appear patent. IMPRESSION: 1. No acute intracranial abnormality. 2. Unremarkable CTA of the head without aneurysm, dissection, high-grade stenosis or proximal branch occlusion. The previously discussed short segment of decreased attenuation involving the anterior left M2 branch within the sylvian fissure is not appreciated. 3. origin of the right posterior cerebral artery. SINGLE VIEW CHEST CLINICAL HISTORY: Generalized abdominal pain. FINDINGS: An AP, portable, upright chest radiograph is compared to study dated 03/04/2017 and correlated with chest CT dated 02/15/2017. The examination is degraded by portable technique and patient rotation. The cardiomediastinal silhouette is unremarkable. Chronic interstitial thickening is similar to previous. There is minimal bibasilar scarring versus atelectasis. No airspace consolidation, large pleural effusion, or pneumothorax is seen. The skeletal structures are osteopenic. There are healed left-sided rib fractures. IMPRESSION: No acute cardiopulmonary abnormality. Electronically signed by: Froy Lau M.D. 06/13/2017 7:22 AM NECK CTA HISTORY: Ataxia. Weakness. TECHNIQUE: Multiaxial CT images of the neck were performed following the intravenous administration of contrast to evaluate the major cervical vessels. Maximum intensity projection images were also obtained. All measurements were calculated based on NASCET criteria. A dose lowering technique was utilized adhering to the principles of ALARA. COMPARISON STUDY: None. FINDINGS: The aortic arch and proximal great vessels are widely patent. There is no significant stenosis, occlusion, or dissection identified within the bilateral common carotid, internal carotid, or vertebral arteries. Mild calcified plaque within the bilateral carotid bulbs. Moderate degenerative disc disease throughout the majority of the cervical spine. IMPRESSION: No significant stenosis, occlusion, or dissection identified within the carotid or vertebral arteries. Electronically signed by: Jigar Cassidy M.D. 06/13/2017 7:12 AM Brain MRA HISTORY: Stroke - Attention to [place] TECHNIQUE: 3-D [id number] MRA of the brain was performed without contrast. COMPARISON STUDY: Head CTA 06/13/2017. FINDINGS: Motion artifact. This results in suboptimal evaluation of the cerebral arteries. The bilateral intracranial internal carotid arteries, distal vertebral arteries, and basilar artery appear to be patent. No high-grade stenosis or occlusion identified within the bilateral ACAs, MCAs, or record changer assembler. No aneurysm identified. IMPRESSION: Motion artifact. No high-grade stenosis or occlusion identified within the [place]. Brain MRI WITHOUT CONTRAST HISTORY: Stroke TECHNIQUE: Multiplanar multisequence MRI of the brain was performed without the use of contrast. COMPARISON STUDY: Head CTA 06/13/2017. FINDINGS: Mild motion artifact. There is no mass, hematoma, midline shift, acute infarct. A few punctate foci of T2 hyperintensity seen within the periventricular white matter. These are nonspecific but favor minimal microvascular ischemic change. Old lacunar infarct within the left basal ganglia. Prominence of the ventricles and central volume loss. The orbits are unremarkable. Paranasal sinuses and mastoid air cells are clear. The major vascular flow voids at the skull base are well-maintained. IMPRESSION: 1. No acute infarct. 2. Old lacunar infarct within the left basal ganglia, unchanged. 3. Stable ventricular prominence. This is nonspecific but favors central volume loss. 4. Presumed minimal microvascular ischemic change. Electronically signed by: Jigar Cassidy M.D. 06/13/2017 1:41 PM R PELVIS/UNILATERAL HIP 2-3VIEWS, R KNEE 3 VIEWS CLINICAL HISTORY: history of surgery s/p fracture, recent falls. Right hip and knee pain. COMPARISON STUDY: Pelvis and bilateral hips 06/09/2017. FINDINGS: The bones are osteopenic. There is contrast within the bladder which partially obscures the sacrum. Mild osteoarthritis within the bilateral hips. There is a proximal intramedullary right femoral anastasiia with an interlocking femoral neck pin transfixing an old, healed right hip fracture. Mild heterotopic ossification at the right hip is again noted. The hardware appears intact. No acute fracture or dislocation within the pelvis or left hip. Question of a small nondisplaced fracture at the superior tip of the right greater trochanter. This is of doubtful clinical significance given the location. No fractures within the right femoral neck. No fracture or dislocation within the right knee. No knee effusion. Soft tissues are unremarkable. IMPRESSION: 1. Question of a small nondisplaced fracture at the superior tip of the right greater trochanter. However, this is of doubtful clinical significance given the location. No evidence for an acute right femoral neck fracture. 2. No fractures identified within the pelvis or left hip. 3. No fracture within the right knee. Electronically signed by: Jigar Cassidy M.D. 06/13/2017 12:53 PM R PELVIS/UNILATERAL HIP 2-3VIEWS, R KNEE 3 VIEWS CLINICAL HISTORY: history of surgery s/p fracture, recent falls. Right hip and knee pain. COMPARISON STUDY: Pelvis and bilateral hips 06/09/2017. FINDINGS: The bones are osteopenic. There is contrast within the bladder which partially obscures the sacrum. Mild osteoarthritis within the bilateral hips. There is a proximal intramedullary right femoral anastasiia with an interlocking femoral neck pin transfixing an old, healed right hip fracture. Mild heterotopic ossification at the right hip is again noted. The hardware appears intact. No acute fracture or dislocation within the pelvis or left hip. Question of a small nondisplaced fracture at the superior tip of the right greater trochanter. This is of doubtful clinical significance given the location. No fractures within the right femoral neck. No fracture or dislocation within the right knee. No knee effusion. Soft tissues are unremarkable. IMPRESSION: 1. Question of a small nondisplaced fracture at the superior tip of the right greater trochanter. However, this is of doubtful clinical significance given the location. No evidence for an acute right femoral neck fracture. 2. No fractures identified within the pelvis or left hip. 3. No fracture within the right knee. Electronically signed by: Jigar Cassidy M.D. 06/13/2017 12:53 PM Dictated Date/Time: 06/13/2017 12:46 PM Consultations: Neurology , Ortho Dr. Kang Pending Studies/Follow-Up: Please refer to hospital course below. Medication Reconciliation New Medications: Amlodipine Besylate (Amlodipine Besylate) 5 Mg Tab 5 MG PO QAM for 30 Days, #30 TAB 1 Refill Multiple Vitamin (Daily-Ifeanyi) 1 Tab Tab 1 TAB PO QAM for 30 Days, #30 TAB 2 Refills Continued Medications: Acetaminophen (Tylenol) 500 Mg Tab 1000 MG PO BID PRN for Headache or Pain, TAB Ascorbic Acid (Vitamin C) 500 Mg Tab 1 TAB PO DAILY Cyanocobalamin (Vitamin B12 100 Mcg) 100 Mcg Tab 100 MCG PO DAILY, TAB Admission Information HPI (per Admitting provider): DATE OF ADMISSION: 06/13/2017 PRIMARY CARE PHYSICIAN: No primary care doctor. CHIEF COMPLAINT: Weakness, falling, legs do not work as per patient. HISTORY OF PRESENT ILLNESS: History obtained from patient and records. Medical history significant for hypertension not on meds, old CVA on CAT scan, past tobacco abuse, alcoholism as per records, history of esophageal stenosis per records, chronic anemia (baseline hemoglobin of 11), chronic tremors as per patient. Recent confinement February 2017 for right hip fracture secondary to fall. Patient underwent surgery, subsequently discharged for rehab at [facility] for the next 2 months on Lovenox subcutaneous daily Rx for a month for DVT prophylaxis. Patient subsequently released to home. Patient seen at the Emergency Room a few days ago for worsening hip pain, right greater than left. X-rays showed no acute fracture of the pelvis or hips, old healed right hip fracture. Outpatient Orthopedic followup visit contemplated. Blood alcohol level at that time was noted to be 364. Patient woke up yesterday morning having trouble walking, Both legs feeling weak and clumsy. having trouble w balance. Patient denies headache, dizziness symptoms. He felt like he was giving more to the left side. No chest pain, no shortness of breath. No previous episodes. Patient brought to the Emergency Room. MEDICAL HISTORY: As above. SURGICAL HISTORY: Hernia surgery. HOME MEDICATIONS: Include cyanocobalamin, Tylenol, vitamin C. ALLERGIES: PENICILLIN. FAMILY HISTORY: Hypertension. PERSONAL AND SOCIAL HISTORY: Past tobacco abuse. Denies alcohol abuse, last drink was about 3 weeks ago as per patient. Applying for disability. REVIEW OF SYSTEMS: As per HPI, all 10 systems reviewed. All other ROS negative. Physical Exam (per Admitting): VITAL SIGNS: Blood pressure was noted to be 170/100, pulse rate 70, RR 16, temperature 36.9; sats 96 on room air. GENERAL: Noted to be slightly anxious, no respiratory distress, looks older than stated age. Hard of hearing. HEENT: Partial alopecia. Pale palpebral conjunctiva. No ptosis. Dry buccal mucosa. NECK: No JVD. Supple, no tenderness. LUNGS: Decreased breath sounds. No tenderness. HEART: Regular rate and rhythm. Palpable LE pulses. ABDOMEN: Soft, nontender. EXTREMITIES: Some tenderness in the right hip. No other gross deformities. NEUROLOGIC: No gross focality except for hearing impairment, intention tremors, dysmetria. MMTS extremities about 4/5. Gait and stance not assessed. Hospital Course Bilateral lower extremity weakness, gait imbalance, likely from Polyneuropathy -- history of cerebrovascular accident on an old CAT scans -- Brain MRI: 1. No acute infarct. 2. Old lacunar infarct within the left basal ganglia, unchanged. 3. Stable ventricular prominence. This is nonspecific but favors central volume loss. 4. Presumed minimal microvascular ischemic change. -- evaluated by Dr. Ji, acute CVA ruled out no other further work up at this time needs to be on ASA and Statin in light of old infarcts however, patient has thrombocytopenia and fall risk re-evaluate as outpatient, if Platelets and LFTs stabilize and less fall risk , consider ASA and Statin -- patient underwent PT/OT while admitted, gradually improved PT/OT recommend to return home declined home health services ff up with PCP in 3-5 days Right Hip Pain -- s/p Hip Surgery 02/[address] Kang -- Hip xray: no acute hip fracture noted no other intervention recommended at this time --- improving, monitor Hypertensive urgency secondary to above. -- started and titrated Amlodipine PRN Clonidine - discharged on Amlodipine 5mg po daily BP improving monitor as outpatient Past tobacco abuse -- counselling done Ongoing alcohol abuse -- Alcohol Withdrawal Protocol including Gabapentin taper, PRN Ativan no signs of alcohol withdrawal counselling done Thrombocytopenia -- HIT screen negative - likely from Alcoholism Plt 80k to 7ok to 80k--> 100 monitor as outpatient Hypokalemia. - replaced Chronic anemia - hemoglobin stable Disposition case management consulted patient will be discharged to home has declined home health services meals on wheels arrangements made ff up with PCP this week Total time spent on discharge = This includes examination of the patient, discharge planning, medication reconciliation, and communication with other providers. Discharge Instructions Discharge Instructions Date of Service Jun 20, 2017. Admission Reason for Admission: Balance Disorder Discharge Discharge Diagnosis / Problem: LEG WEAKNESS Discharge Goals Goal(s): Diagnostic testing, Therapeutic intervention Activity Recommendations Activity Limitations: as noted below (INCREASE ACTIVITY TOLERATED, ALWAYS USE WALKER) Lifting Limitations: until after follow-up appointment Exercise/Sports Limitations: until after follow-up appointment . Instructions / Follow-Up Instructions / Follow-Up PLEASE REVIEW YOUR NEW MEDICATION LIST AND FOLLOW INSTRUCTIONS CAREFULLY. CALL PRIMARY CARE PHYSICIAN OR RETURN TO ER IMMEDIATELY IF WITH RECURRENCE OF SYMPTOMS. NO ALCOHOL AND SMOKING. ALWAYS USE WALKER AND BE CAREFUL WHEN AMBULATING. FOLLOW UP WITH PRIMARY CARE PHYSICIAN DR. TUTTLE IN THE [facility] OFFICE ON 06/23/17 AT 11:00 AM. Current Hospital Diet Patient's current hospital diet: AHA Diet (Heart Healthy) Discharge Diet Recommended Diet: AHA Diet (Heart Healthy) Procedures Procedures Performed: CT SCAN OF THE CHEST, BRAIN MRI Pending Studies Studies pending at discharge: yes List of pending studies: REPEAT BLOOD WORK C/O PRIMARY CARE PHYSICIAN. Laboratory Results Lipid Panel Test 06/13/17 10:04 Range/Units Triglycerides Level 59 0-150 mg/dl Cholesterol Level 195 0-200 mg/dl HDL Cholesterol 128 mg/dl Cholesterol/HDL Ratio 1.5 LDL Cholesterol, Calculated 55 mg/dl Medical Emergencies . Who to Call and When: Medical Emergencies: If at any time you feel your situation is an emergency, please call 911 immediately. . Non-Emergent Contact Non-Emergency issues call your: Primary Care Provider Call Non-Emergent contact if: you have a fever, your pain is not controlled, your pain is worsening, you have any medication questions . . "Provider Documentation" section prepared by Romario Ratliff. . VTE Core Measure Inpt VTE Proph given/why not?: SCD's
== END 2017-06-20 14:38 | disposition home or self-care (01) ==
LOC: EDBD 00:32 → C.EDA 00:33 → C.2T 05:24 → ENRESERV 05:34 → C.MS4W 06-16 08:44 → ENRESERV 06-16 09:23
PROVIDERS: ADMIT Internal Medicine; ATTEND Internal Medicine
DX: R27.0 Ataxia, unspecified (principal); R27.8 Other lack of coordination; I16.1 Hypertensive emergency; G25.2 Other specified forms of tremor; R53.1 Weakness; M25.551 Pain in right hip; F10.20 Alcohol dependence, uncomplicated; Z87.81 Personal history of (healed) traumatic fracture; I10 Essential (primary) hypertension; Z87.891 Personal history of nicotine dependence; Z88.0 Allergy status to penicillin; Z86.73 Personal history of transient ischemic attack (TIA), and cerebral infarction without residual deficits; Z82.49 Family history of ischemic heart disease and other diseases of the circulatory system; H91.90 Unspecified hearing loss, unspecified ear; D69.6 Thrombocytopenia, unspecified; E87.6 Hypokalemia; Z91.81 History of falling

== ENCOUNTER 2017-08-13 20:49 | Inpatient (IN) | payer OTHER ==
[~2017-08-13] VITALS: Ht 180.3 cm; Wt 62.2 kg
[~2017-08-13 20:49] MED LIST changes: +MULT-890 PO; +NRV5 PO
[2017-08-13] MEDS ORDERED: LORAZEPAM 0.5 MG TAB SL STA (21:59)
[2017-08-13 22:22] LABS: HEMATOCRIT 44.2 % (42-52); MEAN CELL VOLUME 95.7 fL (80-100); MEAN CORPUSCULAR HEMOGLOBIN 32.5 pg (25-34); MEAN CORPUSCULAR HGB CONC 33.9 g/dl (32-36); RED CELL DISTRIBUTION WIDTH CV 18.3 % (11.5-14.5); RED CELL DISTRIBUTION WIDTH SD 63.6 fL (36.4-46.3); WHITE BLOOD COUNT 9.69 K/uL (4.8-10.8)
--- NOTE | 2017-08-13 22:36 | DIAGNOSTIC IMAGING REPORT ---
CHEST ONE VIEW PORTABLE HISTORY: weakness COMPARISON: Chest 06/13/2017. FINDINGS: The lungs are clear. Cardiac silhouette is normal in size. No pleural effusions. No pneumothorax. Multiple old left-sided rib fractures. IMPRESSION: No significant change compared to the prior study. No acute process. Electronically signed by: Jigar Cassidy M.D. 08/13/2017 10:35 PM Dictated Date/Time: 08/13/2017 10:34 PM
[2017-08-13 22:46] LABS: ALBUMIN 3.7 gm/dl (3.4-5.0); ALT/SGPT 119 U/L (12-78); BASO % 0.2 %; BASO ABS # 0.02 K/uL (0-0.2); BLOOD UREA NITROGEN 9 mg/dl (7-18); CARBON DIOXIDE 16 mmol/L (21-32); CREATININE 0.73 mg/dl (0.60-1.40); GLUCOSE 71 mg/dl (70-99); IG# 0.04 K/uL (0.00-0.02); LYMPH % 5.2 %; MONO % 5.9 %; MONO ABS # 0.57 K/uL (0.11-0.59); NEUT % 88.3 %; NEUT ABS # 8.56 K/uL (1.4-6.5); PLATELET COUNT 73 K/uL (130-400); POTASSIUM 4.3 mmol/L (3.5-5.1); SODIUM 133 mmol/L (136-145)
[2017-08-13 22:53] LABS: ALKALINE PHOSPHATASE 172 U/L (45-117); AST/SGOT 366 U/L (15-37); TOTAL PROTEIN 8.2 gm/dl (6.4-8.2)
--- NOTE | 2017-08-13 23:02 | DIAGNOSTIC IMAGING REPORT ---
HEAD CT NONCONTRAST CT DOSE: 614.27 mGy.cm HISTORY: ataxia TECHNIQUE: Multiaxial CT images of the head were performed without the use of intravenous contrast. Automated exposure control was utilized for this study. A dose lowering technique was utilized adhering to the principles of ALARA. Comparison: Head CT 06/13/2017. Findings: The paranasal sinuses and mastoid air cells are clear. The calvarium and skull base are intact. There is no mass, hematoma, midline shift, acute infarct. White matter hypodensity is nonspecific but suggestive of microvascular ischemic change. The ventricles and sulci demonstrate mild age-related involutional changes. Old lacunar infarct within the left basal ganglia, unchanged. Impression: No significant change compared to the prior study. No acute intracranial abnormality. Electronically signed by: Jigar Cassidy M.D. 08/13/2017 11:01 PM Dictated Date/Time: 08/13/2017 10:58 PM
[2017-08-13] MEDS ORDERED: SODIUM CHLORIDE 0.9% 1000ML 1,000 ML IV STA (23:15)
[2017-08-14] VITALS (11 sets, daily range): BP systolic 120–210; BP diastolic 72–105; PULSE 67–88; TEMP 36.5–37.4; O2SAT 95–98; BMI 19.2
--- NOTE | 2017-08-14 00:20 | EMERGENCY ROOM VISIT NOTE ---
History First contact with patient: 21:48 Chief Complaint: FALL Stated Complaint: FALL, History of Present Illness The patient is a 52 year old male who presents to the Emergency Room with complaints of problems with his balance. The patient reports that all day today , he has felt off balance and has had multiple falls. He states that he is unable to walk across his apartment without holding onto objects at all times. He states that he is "afraid to get up" because he will fall. The patient typically drinks 8-9 beers per day. He states that he drank 3 beers today and was unable to get up to buy more. He states that he fell in the kitchen and struck his knee, but denies any significant injuries due to the falls. He is concerned because he feels that he cannot function by himself at home. The patient does report some history of balance problems. He had a hospitalization for this a few months ago and states that he has been doing fairly well since then. He reports weakness in his legs. He denies any history of alcohol withdrawal. He denies headache, neck pain, fevers/chills, recent illness, chest pain or shortness of breath. Review of Systems A complete 10 point review of systems was reviewed with the patient with pertinent positives and negatives as per history of present illness. All else were negative. Past Medical/Surgical History Medical Problems: (1) Alcoh Dep Nec/Nos-Unspec (2) Alcoholism /alcohol abuse (3) Balance disorder (4) Bilateral leg weakness (5) Chest pain (6) Fever (7) Fracture Calcaneus-Close (8) Frequent falls (9) Hip fracture (10) Hypertension Nos (11) Hyponatremia (12) Hypoxia (13) Pleural effusion (14) Sprain Of Ankle Nos (15) Weakness of both lower limbs Social History Problems: (1) Alcohol abuse Family History FHx: cancer Social History Smoking Status: Former Smoker Alcohol Use: heavy Drug Use: none Marital Status: single Housing Status: other Occupation Status: unemployed Current/Historical Medications No Active Prescriptions or Reported Meds Physical Exam Vital Signs Date Time Temp Pulse Resp B/P (MAP) Pulse Ox O2 Delivery O2 Flow Rate FiO2 08/14/17 00:05 78 20 166/100 08/13/17 23:00 84 16 150/95 97 08/13/17 22:53 78 1/28/18 22:52 169/100 08/13/17 21:30 80 18 164/100 97 Room Air 08/13/17 21:24 95 Room Air 08/13/17 21:00 86 16 179/104 98 Room Air 08/13/17 20:49 36.7 96 16 188/116 98 Room Air Physical Exam VITALS: Vitals are noted on the nurse's note and reviewed by myself. Vital signs stable. GENERAL: This is a 52-year-old male, in no acute distress, malnourished appearing. SKIN: The skin was without rashes, erythema, edema, or bruising. HEAD: Normocephalic atraumatic. EARS: External auditory canals clear, tympanic membranes pearly geiger without erythema or effusion bilaterally. EYES: Pupils equal round and reactive to light and accommodation. Extraocular movements intact. MOUTH: Mucous membranes moist. Tonsils are not enlarged. Pharynx without erythema or exudate. NECK: Supple without nuchal rigidity. No lymphadenopathy. HEART: Regular rate and rhythm without murmurs gallops or rubs. LUNGS: Clear to auscultation bilaterally without wheezes, rales or rhonchi. No retractions or accessory muscle use. ABDOMEN: Soft, nontender to palpation. MUSCULOSKELETAL: Strength 5/5 throughout. Gait is very unsteady. Patient is able to take only a few steps before falling. NEURO: Patient was alert and oriented to person place and time. Normal sensation to light and sharp touch. No focal neurological deficits. Medical Decision & Procedures ER Provider Diagnostic Interpretation: CHEST ONE VIEW PORTABLE FINDINGS: The lungs are clear. Cardiac silhouette is normal in size. No pleural effusions. No pneumothorax. Multiple old left-sided rib fractures. IMPRESSION: No significant change compared to the prior study. No acute process. HEAD CT NONCONTRAST Findings: The paranasal sinuses and mastoid air cells are clear. The calvarium and skull base are intact. There is no mass, hematoma, midline shift, acute infarct. White matter hypodensity is nonspecific but suggestive of microvascular ischemic change. The ventricles and sulci demonstrate mild age-related involutional changes. Old lacunar infarct within the left basal ganglia, unchanged. Impression: No significant change compared to the prior study. No acute intracranial abnormality. Laboratory Results Test 08/13/17 22:10 08/13/17 22:58 Immature Granulocyte % (Auto) 0.4 % White Blood Count 9.69 K/uL (4.8-10.8) Red Blood Count 4.62 M/uL (4.7-6.1) Hemoglobin 15.0 g/dL (14.0-18.0) Hematocrit 44.2 % (42-52) Mean Corpuscular Volume 95.7 fL (80-100) Mean Corpuscular Hemoglobin 32.5 pg (25-34) Mean Corpuscular Hemoglobin Concent 33.9 g/dl (32-36) Platelet Count 73 K/uL (130-400) Mean Platelet Volume 10.0 fL (7.4-10.4) Neutrophils (%) (Auto) 88.3 % Lymphocytes (%) (Auto) 5.2 % Monocytes (%) (Auto) 5.9 % Eosinophils (%) (Auto) 0.0 % Basophils (%) (Auto) 0.2 % Neutrophils # (Auto) 8.56 K/uL (1.4-6.5) Lymphocytes # (Auto) 0.50 K/uL (1.2-3.4) Monocytes # (Auto) 0.57 K/uL (0.11-0.59) Eosinophils # (Auto) 0.00 K/uL (0-0.5) Basophils # (Auto) 0.02 K/uL (0-0.2) Immature Granulocyte # (Auto) 0.04 K/uL (0.00-0.02) Platelet Estimate DECREASED Pappenheimer Bodies OCCASIONAL Troponin I < 0.015 ng/ml (0-0.045) Beta-Hydroxybutyric Acid 99.20 mg/dL (0.2-2.81) Thyroid Stimulating Hormone (TSH) 0.667 uIu/ml (0.300-4.500) Chemistry Specimen Hemolysis Ethyl Alcohol mg/dL 120.8 mg/dl (0-3) Salicylates Level < 1.7 mg/dl (2.8-20) Medications Administered Medications (Trade) Dose Ordered Sig/Jaylene Route Start Time Stop Time Status Last Admin Dose Admin Lorazepam (Ativan Tab) 0.5 mg NOW STAT SL 08/13/17 21:59 08/13/17 22:00 DC 08/13/17 22:17 0.5 MG Sodium Chloride 1,000 ml @ 999 mls/hr Q1H1M STAT IV 08/13/17 23:15 08/14/17 00:15 DC 08/13/17 23:31 999 MLS/HR ECG Indication: weakness Rate (beats per minute): 76 Rhythm: normal sinus Findings: no acute ischemic change, no ectopy Change: no significant change Medical Decision Differential diagnosis includes CVA, infection, electrolyte abnormality, polyneuropathy, alcohol withdrawal, among others. The patient is a 52-year-old male who presents today complaining of weakness and ataxia. Labs revealed no leukocytosis. Patient is thrombocytopenic, likely secondary to alcohol use. LFTs are elevated likely secondary to alcohol use. Patient does have elevated anion gap of 24. He appears to be dehydrated and does admit that he has not been eating or drinking much, however this could be indicative of alcoholic ketoacidosis. Beta hydroxybutyrate was added. CT of the head was unremarkable. Chest x-ray was unremarkable. EKG was interpreted by myself and shows a normal sinus rhythm. Review of previous records shows the patient has had previous hospitalizations for similar issues. He has had extensive workup and his weakness is believed to be due to polyneuropathy. I did attempt to stand the patient up, however he is unable to walk even a few steps without significant ataxia. He cannot be safely discharged home. The [facility] hospitalist service was consulted to evaluate the patient. Medication Reconcilliation Current Medication List: was personally reviewed by me Blood Pressure Screening Patient's blood pressure: Elevated blood pressure (will be followed by hospitalist) Impression Primary Impression: Ataxia Departure Information Prescriptions No Active Prescriptions or Reported Meds Referrals No Doctor, Assigned (PCP) Patient Instructions My [facility]
[2017-08-14] MEDS ORDERED: ONDANSETRON INJ 2 MG/ML 2 ML VIAL IV PRN (01:30)
[2017-08-14] MEDS ORDERED: CLONIDINE HCL 0.1 MG TAB PO ONE (01:38)
[2017-08-14] MEDS ORDERED: CLONIDINE HCL 0.1 MG TAB ONE (01:52)
[2017-08-14] MEDS ORDERED: METOPROLOL TARTRATE 1 MG/ML VIAL ONE (01:52)
[2017-08-14] MEDS ORDERED: CLONIDINE HCL 0.1 MG TAB PO PRN (02:00)
[2017-08-14 02:25] LABS: CALCIUM 8.1 mg/dl (8.5-10.1); CREATININE 0.75 mg/dl (0.60-1.40); POTASSIUM 4.2 mmol/L (3.5-5.1)
[2017-08-14] MEDS ORDERED: METOPROLOL TARTRATE 1 MG/ML VIAL IV STA (02:30)
[2017-08-14] MEDS ORDERED: THIAMINE HCL INJ 100 MG in SYRINGE 9 ML IV STA (02:38)
[2017-08-14] MEDS ORDERED: GABAPENTIN 600 MG TAB PO STA (02:40)
[2017-08-14] MEDS ORDERED: MULTI-VITAMIN INFUSION INJ 10 ML, THIAMINE HCL INJ 100 MG, FoLIC ACID INJ 1 MG in SODIU... IV ONE (03:00)
[2017-08-14] MEDS: LORAZEPAM 1MG IV PHA DISPENSED IV PRN ×5 (03:24→23:52)
--- NOTE | 2017-08-14 04:40 | HISTORY & PHYSICAL EXAMINATION ---
DATE OF ADMISSION: 08/14/2017 PRIMARY CARE PHYSICIAN: He does not have one. CHIEF COMPLAINT: Inability to walk since this morning with frequent falls. HISTORY OF PRESENT COMPLAINT: He is a 52-year-old male with a significant past medical history of hypertension, history of an old CVA on CAT scan, past tobacco abuse, alcoholism as per record, history of esophageal stenosis as per record, chronic anemia, and chronic tremor, apparently has been complaining of weakness in both legs since this morning. He has been falling and since this morning, he has had 2 falls. He has been walking around his apartment holding a furniture TO AVOID fall. He does have nausea, but no vomiting. He is a heavy drinker. He usually drinks about 6 packs or more daily and his last drink was yesterday morning consisting of 3 beers. He denies having any headache, any blurred vision, any numbness or tingling in the extremities. He denies having any fever, chills or rigors, any cough or phlegm, any shortness of breath or palpitation. He does have some nausea, but no vomiting. In the Emergency Room, he was hemodynamically stable. He did have some tremor involving the upper extremities and he had weakness in the legs that he could not walk around even with help. From that point, he was advised for admission. Apparently, his blood alcohol level was noted to be at 120.8 with abnormal LFTs consistent with alcoholism. PAST MEDICAL HISTORY: Significant for alcoholism with history of abnormality of gait in the past, hypertension, esophageal stenosis, chronic anemia and also chronic tremor. PAST SURGICAL HISTORY: He has had 3 pins placed in the right hip, but no other significant past medical history and also, he had a hernia repair. FAMILY HISTORY: Nothing contributory. SOCIAL HISTORY: He is single. He does not have any child. He drinks about 6 or more beers daily. He does not smoke and he has been reasonably ambulant. ALLERGIES: PENICILLIN. MEDICATIONS: He has not been taking any medicines. REVIEW OF SYSTEMS: Other system review unremarkable except for those mentioned in history of present complaint. PHYSICAL EXAMINATION: GENERAL: On examination in the Emergency Room, he was having tremor of outstretched hands, but no other symptoms. VITAL SIGNS: Temperature 36.7, pulse was 86, blood pressure 179/104, saturation 98% on room air. HEENT: Unremarkable. NECK: Supple. No JVD, no bruit. CHEST: Clear to auscultate bilaterally. HEART: S1, S2 regular. ABDOMEN: Soft, benign, nontender, no organomegaly. Bowel sounds present. EXTREMITIES: Negative for any edema. MUSCULOSKELETAL SYSTEM: Did not show any acute arthritis involving any joint. CENTRAL NERVOUS SYSTEM: He was alert, awake, oriented x3 and generally weak, but no focal neuro deficit appreciated. Examination of the legs did not show any sensory impairment. Bilaterally, legs were weak, but DTRs were 2+. LABORATORY DATA: Noted today, white count was 9.69, H&H 15.0/44.2, platelet was 73. Sodium 133, potassium 4.3, chloride 94, carbon dioxide 16, anion gap of 24, and random glucose 71. LFTs grossly abnormal with AST 366, [id number], and alkaline phosphatase 172. Troponin less than 0.015. Beta hydroxybutyric acid was 99.20. TSH 0.667. Toxicology, ethyl alcohol was 120.8, salicylate less than 1.7. IMAGING STUDIES: EKG was in sinus rhythm, rate of 76 per minute, normal axis, poor R-wave progression, no significant ST-T wave changes. CT of the head, no significant change compared to prior study and chest x-ray, no significant change compared to prior study, no acute process. IMPRESSION AND PLAN: 1. Acute alcoholism with bilateral weakness involving the legs. He has had a similar episode in February 2017 when he had a fall. He will be admitted to telemetry unit. He is likely going to have withdrawal symptoms. We will start him with gabapentin protocol and also give Ativan as needed. He will be started with intravenous beta calin and clonidine p.r.n. He may need clonidine round the clock. Banana bag will be given and thiamine and also folic acid will be given. 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 2. Bilateral weakness in the legs with ambulator dysfunction, mostly secondary to alcoholism and alcoholic effect on brain. We will get PT, OT evaluation. He may need placement from here or inpatient rehabilitation. 3. Hypertension. Blood pressure seems to be elevated. We will give intravenous beta calin and clonidine as needed for blood pressure control. 4. Thrombocytopenia may be secondary to alcohol use and liver disease. He has had a hepatitis panel before those were negative. We will not give any pharmacologic anticoagulation with this low platelet. 5. Gastrointestinal prophylaxis with Protonix. 6. Deep venous thrombosis prophylaxis with sequential compression device. 7. Code status. He will be a full code. In my clinical assessment, the beneficiary meets criteria for CMS for 2 midnights' stay in the hospital. LUIS EDUARDO
[2017-08-14] MEDS ORDERED: METOPROLOL TARTRATE 1 MG/ML VIAL IV. SCH (06:00)
[2017-08-14] MEDS ORDERED: HEPARIN SOD 5000 UNIT/0.5 ML CARP SQ SCH ×2 (06:00)
[2017-08-14 06:23] LABS: HEMATOCRIT 36.3 % (42-52); HEMOGLOBIN 12.7 g/dL (14.0-18.0); MEAN CELL VOLUME 93.1 fL (80-100); MEAN CORPUSCULAR HEMOGLOBIN 32.6 pg (25-34); RED CELL DISTRIBUTION WIDTH CV 18.2 % (11.5-14.5); RED CELL DISTRIBUTION WIDTH SD 61.5 fL (36.4-46.3); WHITE BLOOD COUNT 10.39 K/uL (4.8-10.8)
[2017-08-14 06:28] LABS: MEAN PLATELET VOLUME 9.8 fL (7.4-10.4); PLATELET COUNT 73 K/uL (130-400)
[2017-08-14 06:57] LABS: ALBUMIN 3.1 gm/dl (3.4-5.0); CALCIUM 8.2 mg/dl (8.5-10.1); CREATININE 0.64 mg/dl (0.60-1.40)
[2017-08-14] MEDS ORDERED: INFLUENZA VIRUS QUAD VACCINE 0.5 ML SYR IM. ONE (07:00)
[2017-08-14] MEDS ORDERED: INFLUENZA ADMINISTRATION CHARGE ONE (07:00)
[2017-08-14 07:01] LABS: PHOSPHORUS 2.2 mg/dl (2.5-4.9); TOTAL PROTEIN 6.7 gm/dl (6.4-8.2)
[2017-08-14] MEDS: FoLIC ACID INJ 1 MG in SYRINGE 9.8 ML IV SCH (08:00)
[2017-08-14] MEDS ORDERED: CLONIDINE HCL 0.1 MG TAB PO SCH (09:00)
[2017-08-14] MEDS: GABAPENTIN 600MG Q6H DOSE PO SCH ×2 (09:26→15:53)
--- NOTE | 2017-08-14 14:51 | Progress Note ---
Medicine Progress Note Date & Time of Visit: Aug 14, 2017 at 09:32. Subjective 52 yo alcoholic man presents to the ER after recently drinking and reporting a severe leg weakness causing him to have difficulty walking. Today he is very fatigued and lethargic. He is not earily arousable but can answer some questions to where I know he is understanding me. He is able to follow instructions to move his arms and legs and somewhat sit up but it unable to perform appropriate strength testing at this time. He was dosed gabapentin, ativan and clonidine-none of which are medications he takes typically. He is unassigned, however, was here in the hospital just in Jun with a similar presentation. He was sent out on Norvasc and this is not on his current medication list; he is too lethargic to tell me if he stopped it and why so will hold off on giving now and just continue with hydralazine PRN. He currently has clonidine PRN, but I think in the setting of the high dose gabapentin the hydralazine will be less sedating. Vital signs have been stable and per the nurse he appears to be stable. Objective Last 8 Hrs Date Time Temp Pulse Resp B/P (MAP) Pulse Ox O2 Delivery O2 Flow Rate FiO2 08/14/17 08:00 96 Room Air 08/14/17 07:54 36.7 67 18 150/72 (98) 96 Room Air 08/14/17 07:24 36.7 69 18 123/78 (93) 95 Room Air 08/14/17 06:16 77 121/79 08/14/17 04:45 155/91 (112) 08/14/17 04:01 36.6 70 20 210/103 Room Air 08/14/17 04:00 Room Air 08/14/17 01:59 76 175/99 08/14/17 01:56 79 18 175/99 98 Room Air Physical Exam: GEN: WNWD, lethargic and difficult to arouse. HEENT: NC/AT, PERRL, normal sclerae, MMM CARDIO: reg rate, S1/2 heard without m/g/r LUNGS: CTA bilaterally, no crackles, rales or wheezes, good diaphragmatic excursion ABD: soft, non-tender, non-distended, no rebound or guarding, +BS EXTREMITY: no LE swelling or edema, extremities are warm and well-perfused NEURO: very limited, gambling box person strength intact and moves all extremities equally MUSC: unable to assess 2/2 lethargy SKIN: slight diaphoresis Laboratory Results: 08/14/17 06:08 08/14/17 06:08 Test 08/13/17 22:10 08/13/17 22:58 08/14/17 02:00 08/14/17 03:14 Immature Granulocyte % (Auto) 0.4 % White Blood Count 9.69 K/uL (4.8-10.8) Red Blood Count 4.62 M/uL (4.7-6.1) Hemoglobin 15.0 g/dL (14.0-18.0) Hematocrit 44.2 % (42-52) Mean Corpuscular Volume 95.7 fL (80-100) Mean Corpuscular Hemoglobin 32.5 pg (25-34) Mean Corpuscular Hemoglobin Concent 33.9 g/dl (32-36) Platelet Count 73 K/uL (130-400) Mean Platelet Volume 10.0 fL (7.4-10.4) Neutrophils (%) (Auto) 88.3 % Lymphocytes (%) (Auto) 5.2 % Monocytes (%) (Auto) 5.9 % Eosinophils (%) (Auto) 0.0 % Basophils (%) (Auto) 0.2 % Neutrophils # (Auto) 8.56 K/uL (1.4-6.5) Lymphocytes # (Auto) 0.50 K/uL (1.2-3.4) Monocytes # (Auto) 0.57 K/uL (0.11-0.59) Eosinophils # (Auto) 0.00 K/uL (0-0.5) Basophils # (Auto) 0.02 K/uL (0-0.2) Immature Granulocyte # (Auto) 0.04 K/uL (0.00-0.02) Platelet Estimate DECREASED Pappenheimer Bodies OCCASIONAL Troponin I < 0.015 ng/ml (0-0.045) Beta-Hydroxybutyric Acid 99.20 mg/dL (0.2-2.81) Thyroid Stimulating Hormone (TSH) 0.667 uIu/ml (0.300-4.500) Chemistry Specimen Hemolysis Ethyl Alcohol mg/dL 120.8 mg/dl (0-3) Salicylates Level < 1.7 mg/dl (2.8-20) Urine Color YELLOW Urine Appearance CLEAR (CLEAR) Urine pH 5.0 (4.5-7.5) Urine Specific [place] 1.021 (1.000-1.030) Urine Protein 2+ (NEG) Urine Glucose (UA) NEG (NEG) Urine Ketones 3+ (NEG) Urine Occult Blood 1+ (NEG) Urine Nitrite NEG (NEG) Urine Bilirubin NEG (NEG) Urine Urobilinogen NEG (NEG) Urine Leukocyte Esterase NEG (NEG) Urine WBC (Auto) 0 /hpf (0-5) Urine RBC (Auto) 0-4 /hpf (0-4) Urine Hyaline Casts (Auto) 0 /lpf (0-5) Urine Epithelial Cells (Auto) 5-10 /lpf (0-5) Urine Bacteria (Auto) NEG (NEG) Urine Opiates Screen NEG (NEG) Urine Methadone, Qualitative NEG (NEG) Urine Barbiturates NEG (NEG) Urine Phencyclidine (PCP) Level NEG (NEG) Ur Amphetamine/Methamphetamine NEG (NEG) MDMA (Ecstasy) Screen NEG (NEG) Urine Benzodiazepines Screen NEG (NEG) Urine Cocaine Metabolite NEG (NEG) Urine Marijuana (THC) NEG (NEG) Bedside Glucose 102 mg/dl (70-99) Test 08/14/17 06:08 Red Blood Count 3.90 M/uL (4.7-6.1) Mean Corpuscular Volume 93.1 fL (80-100) Mean Corpuscular Hemoglobin 32.6 pg (25-34) Mean Corpuscular Hemoglobin Concent 35.0 g/dl (32-36) RDW Standard Deviation 61.5 fL (36.4-46.3) RDW Coefficient of Variation 18.2 % (11.5-14.5) Mean Platelet Volume 9.8 fL (7.4-10.4) Prothrombin Time 10.9 SECONDS (9.0-12.0) Prothromb Time International Ratio 1.0 (0.9-1.1) Anion Gap 13.0 mmol/L (3-11) Est Creatinine Clear Calc Drug Dose 117.6 ml/min Estimated GFR () 129.6 Estimated GFR (Non- 111.8 BUN/Creatinine Ratio 11.9 (10-20) Calcium Level 8.2 mg/dl (8.5-10.1) Phosphorus Level 2.2 mg/dl (2.5-4.9) Magnesium Level 1.6 mg/dl (1.8-2.4) Total Bilirubin 0.9 mg/dl (0.2-1) Aspartate Amino Transf (AST/SGOT) 196 U/L (15-37) Alanine Aminotransferase (ALT/SGPT) 86 U/L (12-78) Alkaline Phosphatase 139 U/L (45-117) Total Protein 6.7 gm/dl (6.4-8.2) Albumin 3.1 gm/dl (3.4-5.0) Globulin 3.6 gm/dl (2.5-4.0) Albumin/Globulin Ratio 0.9 (0.9-2) Last 24 Hours Test 08/13/17 22:10 08/13/17 22:58 08/14/17 01:42 08/14/17 02:00 White Blood Count 9.69 K/uL Red Blood Count 4.62 M/uL Hemoglobin 15.0 g/dL Hematocrit 44.2 % Mean Corpuscular Volume 95.7 fL Mean Corpuscular Hemoglobin 32.5 pg Mean Corpuscular Hemoglobin Concent 33.9 g/dl Platelet Count 73 K/uL Mean Platelet Volume 10.0 fL Neutrophils (%) (Auto) 88.3 % Lymphocytes (%) (Auto) 5.2 % Monocytes (%) (Auto) 5.9 % Eosinophils (%) (Auto) 0.0 % Basophils (%) (Auto) 0.2 % Neutrophils # (Auto) 8.56 K/uL Lymphocytes # (Auto) 0.50 K/uL Monocytes # (Auto) 0.57 K/uL Eosinophils # (Auto) 0.00 K/uL Basophils # (Auto) 0.02 K/uL RDW Standard Deviation 63.6 fL RDW Coefficient of Variation 18.3 % Immature Granulocyte % (Auto) 0.4 % Immature Granulocyte # (Auto) 0.04 K/uL Platelet Estimate DECREASED Pappenheimer Bodies OCCASIONAL Sodium Level 133 mmol/L 133 mmol/L Potassium Level 4.3 mmol/L 4.2 mmol/L Chloride Level 94 mmol/L 95 mmol/L Carbon Dioxide Level 16 mmol/L 17 mmol/L Anion Gap 24.0 mmol/L 21.0 mmol/L Blood Urea Nitrogen 9 mg/dl 7 mg/dl Creatinine 0.73 mg/dl 0.75 mg/dl Est Creatinine Clear Calc Drug Dose 103.1 ml/min 100.4 ml/min Estimated GFR () 122.7 121.4 Estimated GFR (Non- 105.9 104.7 BUN/Creatinine Ratio 12.2 9.8 Random Glucose 71 mg/dl 53 mg/dl Calcium Level 9.0 mg/dl 8.1 mg/dl Magnesium Level 1.8 mg/dl Total Bilirubin 0.8 mg/dl Aspartate Amino Transf (AST/SGOT) 366 U/L Alanine Aminotransferase (ALT/SGPT) 119 U/L Alkaline Phosphatase 172 U/L Troponin I < 0.015 ng/ml Total Protein 8.2 gm/dl Albumin 3.7 gm/dl Globulin 4.5 gm/dl Albumin/Globulin Ratio 0.8 Beta-Hydroxybutyric Acid 99.20 mg/dL Thyroid Stimulating Hormone (TSH) 0.667 uIu/ml Chemistry Specimen Hemolysis Ethyl Alcohol mg/dL 120.8 mg/dl Salicylates Level < 1.7 mg/dl Urine Color YELLOW Urine Appearance CLEAR Urine pH 5.0 Urine Specific [place] 1.021 Urine Protein 2+ Urine Glucose (UA) NEG Urine Ketones 3+ Urine Occult Blood 1+ Urine Nitrite NEG Urine Bilirubin NEG Urine Urobilinogen NEG Urine Leukocyte Esterase NEG Urine WBC (Auto) 0 /hpf Urine RBC (Auto) 0-4 /hpf Urine Hyaline Casts (Auto) 0 /lpf Urine Epithelial Cells (Auto) 5-10 /lpf Urine Bacteria (Auto) NEG Urine Opiates Screen NEG Urine Methadone, Qualitative NEG Urine Barbiturates NEG Urine Phencyclidine (PCP) Level NEG Ur Amphetamine/Methamphetamine NEG MDMA (Ecstasy) Screen NEG Urine Benzodiazepines Screen NEG Urine Cocaine Metabolite NEG Urine Marijuana (THC) NEG Test 08/14/17 02:33 08/14/17 02:48 08/14/17 03:14 08/14/17 06:08 Bedside Glucose 59 mg/dl 59 mg/dl 102 mg/dl White Blood Count 10.39 K/uL Red Blood Count 3.90 M/uL Hemoglobin 12.7 g/dL Hematocrit 36.3 % Mean Corpuscular Volume 93.1 fL Mean Corpuscular Hemoglobin 32.6 pg Mean Corpuscular Hemoglobin Concent 35.0 g/dl RDW Standard Deviation 61.5 fL RDW Coefficient of Variation 18.2 % Platelet Count 73 K/uL Mean Platelet Volume 9.8 fL Prothrombin Time 10.9 SECONDS Prothromb Time International Ratio 1.0 Sodium Level 132 mmol/L Potassium Level 4.0 mmol/L Chloride Level 98 mmol/L Carbon Dioxide Level 21 mmol/L Anion Gap 13.0 mmol/L Blood Urea Nitrogen 8 mg/dl Creatinine 0.64 mg/dl Est Creatinine Clear Calc Drug Dose 117.6 ml/min Estimated GFR () 129.6 Estimated GFR (Non- 111.8 BUN/Creatinine Ratio 11.9 Random Glucose 140 mg/dl Calcium Level 8.2 mg/dl Phosphorus Level 2.2 mg/dl Magnesium Level 1.6 mg/dl Total Bilirubin 0.9 mg/dl Aspartate Amino Transf (AST/SGOT) 196 U/L Alanine Aminotransferase (ALT/SGPT) 86 U/L Alkaline Phosphatase 139 U/L Total Protein 6.7 gm/dl Albumin 3.1 gm/dl Globulin 3.6 gm/dl Albumin/Globulin Ratio 0.9 Assessment & Plan 52 yo alcoholic man presents to the ER after recently drinking and reporting a severe leg weakness causing him to have difficulty walking. Today he is very fatigued and lethargic. He is not earily arousable but can answer some questions to where I know he is understanding me. He is able to follow instructions to move his arms and legs and somewhat sit up but it unable to perform appropriate strength testing at this time. He was dosed gabapentin, ativan and clonidine-none of which are medications he takes typically. He is unassigned, however, was here in the hospital just in Jun with a similar presentation. He was sent out on Norvasc and this is not on his current medication list; he is too lethargic to tell me if he stopped it and why so will hold off on giving now and just continue with hydralazine PRN. He currently has clonidine PRN, but I think in the setting of the high dose gabapentin the hydralazine will be less sedating. Vital signs have been stable and per the nurse he appears to be stable. 1. Acute alcohol withdrawal with bilateral weakness-cont gabapentin protocol which is likely contributing to his significant fatigue, Ativan PRN and monitoring on telemetry because of his mental status. Cont MVI, folate and thiamine supplementation. PT needs assistance with education on benefits of quitting alcohol and assistance on programs/options in the area prior to discharge if he is willing. 2. Ambulatory dysfunction 2/2 subjective weakness in the legs-he is too lethargic to perform approrpriate strength testing at this time, however, he was sitting on the side of the bed working with therapy earlier and is able to move both legs on his own for me now and equally. Re-evaluate when more alert. Apprec PT/OT recs. 3. HTN-likely elevated BP 2/2 alcohol withdrawal, however, will need to question him about Norvasc when he wakes up more. Currently controlled. 4. Thrombocytopenia-new onset as of just a few months ago. No active bleeding , however, with new onset, it would be worth a look by Hematology as he does not have significant liver disease on imaging performed last fall. He does have fatty liver but there is no evidence of cirrhosis and no splenomegaly. Alcohol may be causing bone marrow suppression but other cell lines are normal. Will consult Hematology to see and institute workup. Holding Lovenox at this time. HIV would be a good consideration once he is awake and able to give consent. DVT proph-SCDs, contraindicated in setting of thrombocytopenia Full ode Dispo-keep on telemetry another day with mental status Sully Gregory DO [facility] Hospitalist Current Inpatient Medications: Current Inpatient Medications Medications (Trade) Dose Ordered Sig/Jaylene Route Start Time Stop Time Status Last Admin Dose Admin Ondansetron HCl (Zofran Inj) 4 mg Q6H PRN IV 08/14/17 01:30 09/13/17 01:29 Multivitamins 10 ml/Thiamine HCl 100 mg/Folic Acid 1 mg/Sodium Chloride 1,011.2 ml @ 150 mls/ hr Q6H45M ONCE IV 08/14/17 03:00 08/14/17 09:44 08/14/17 03:10 150 MLS/HR Lorazepam (Ativan Inj) PRN Dosing -Active Protocol Q1H PRN IV 08/14/17 01:45 09/13/17 01:44 Clonidine HCl (Catapres Tab) 0.2 mg BID PO 08/14/17 09:00 09/13/17 08:59 08/14/17 08:00 0.2 MG Clonidine HCl (Catapres Tab) 0.1 mg Q6H PRN PO 08/14/17 02:00 09/13/17 01:59 08/14/17 03:11 0.1 MG Folic Acid 1 mg/ Syringe 10 ml @ 5 mls/min QAM IV 08/14/17 09:00 09/13/17 08:59 08/14/17 08:00 5 MLS/MIN Heparin Sodium (Porcine) (Heparin Sq 5000 Unit/0.5ml) 5,000 unit Q8 SQ 08/14/17 06:00 09/13/17 05:59 08/14/17 06:38 5,000 UNIT Gabapentin (Neurontin Tab) 600 mg Q6H PO 08/14/17 10:00 08/14/17 16:01 08/14/17 09:26 600 MG Gabapentin (Neurontin Tab) 600 mg Q8H PO 08/15/17 00:00 08/15/17 16:01 Gabapentin (Neurontin Tab) 600 mg Q12H PO 08/16/17 04:00 08/16/17 16:01 Gabapentin (Neurontin Tab) 600 mg Q24H PO 08/17/17 16:00 08/17/17 16:01 Thiamine HCl 100 mg/Syringe 10 ml @ 2 mls/min Q24H IV 08/15/17 04:00 09/14/17 03:59 Lorazepam 1 mg/ Syringe 1 ml @ 1 mls/min Q1H PRN IV 08/14/17 03:15 09/13/17 03:14 08/14/17 09:26 1 MLS/MIN
[2017-08-14] MEDS: ACETAMINOPHEN 500 MG TAB PO PRN (20:14)
[2017-08-14] MEDS ORDERED: NURSING VERBAL MED ORDER ONE (20:15)
[2017-08-14] MEDS: GABAPENTIN 600MG Q8H DOSE PO SCH (23:22)
[2017-08-15] VITALS (9 sets, daily range): BP systolic 135–161; BP diastolic 90–99; PULSE 65–103; TEMP 36.4–37; O2SAT 96–99
[2017-08-15] MEDS: THIAMINE HCL INJ 100 MG in SYRINGE 9 ML IV SCH (04:55)
[2017-08-15 06:58] LABS: HEMATOCRIT 39.1 % (42-52); HEMOGLOBIN 13.8 g/dL (14.0-18.0); MEAN CELL VOLUME 92.2 fL (80-100); MEAN CORPUSCULAR HEMOGLOBIN 32.5 pg (25-34); MEAN CORPUSCULAR HGB CONC 35.3 g/dl (32-36); RED CELL DISTRIBUTION WIDTH CV 17.5 % (11.5-14.5); RED CELL DISTRIBUTION WIDTH SD 58.9 fL (36.4-46.3); WHITE BLOOD COUNT 6.49 K/uL (4.8-10.8)
[2017-08-15 07:08] LABS: MEAN PLATELET VOLUME 10.9 fL (7.4-10.4); PLATELET COUNT 73 K/uL (130-400)
[2017-08-15 07:25] LABS: CALCIUM 8.5 mg/dl (8.5-10.1); CREATININE 0.64 mg/dl (0.60-1.40); POTASSIUM 3.2 mmol/L (3.5-5.1)
[2017-08-15] MEDS: GABAPENTIN 600MG Q8H DOSE PO SCH ×2 (08:13→16:01)
[2017-08-15] MEDS: FoLIC ACID INJ 1 MG in SYRINGE 9.8 ML IV SCH (08:13)
[2017-08-15] MEDS: MAGNESIUM SULFATE IV SCH ×8 (08:31→16:55)
[2017-08-15] MEDS: POTASSIUM CHLORIDE IV SCH ×8 (08:31→16:55)
[2017-08-15] MEDS: D5W 1 GM IV SCH ×8 (08:31→16:55)
[2017-08-15] MEDS: [UNRECOGNIZED DRUG - OTHER] IV SCH ×8 (08:31→16:55)
[2017-08-15] MEDS: LORAZEPAM 1MG IV PHA DISPENSED IV PRN ×4 (08:31→23:11)
[2017-08-15] MEDS ORDERED: LORAZEPAM 2 MG/ML 1 ML VIAL IV ONE (10:15)
[2017-08-15] MEDS ORDERED: LORAZEPAM INJ 3 MG in SYRINGE 1.5 ML IV SCH (10:30)
[2017-08-15] MEDS: LORAZEPAM 2 MG/ML 1 ML VIAL IV PRN (10:36)
[2017-08-15] MEDS: ACETAMINOPHEN 500 MG TAB PO PRN (11:02)
--- NOTE | 2017-08-15 13:09 | Medical Consult ---
Consultation Date of Consultation: Aug 15, 2017. Attending Physician: David Bingham M.D. History of Present Illness Hematology/Oncology consult: Evaluation and management of thrombocytopenia. Date of consultation: 08/15/2017 HPI: 52-year-old male, admitted at [facility] on 08/14/2017 because of some nonspecific niece in the both legs, could not ambulate well, history of fall x2. Some nausea present, no vomiting, longstanding history of drinking alcohol present. Hematology consulted because of recent blood workup showed mild thrombocytopenia. I reviewed his medical records. -platelet count is around 73,000 since 08/13/2017. Earlier platelet count was on the lower range around 80,000-110,000 in May-June,. Sometimes platelet count has gone up significantly high to around 700,000 in 2017. It looks like the he had a low platelet count earlier when he is admitted but few days later on it has gone up significantly high to around 700,000 range. No bleeding from any sites. He is not on any anticoagulant treatment. REVIEW OF SYSTEMS: GENERAL: No change in weight, he is feeling weak and tired, no fever, sweats or chills. SKIN: No skin rash, no bruising. HEAD: No new headache, some dizziness present. EYES: No recent change in the vision, no diplopia, EARS: No earache no tinnitus, NOSE: No epistaxis, No nasal discharge or stuffiness, MOUTH: No sores, no dysphagia, no hoarseness of voice, NECK: No lumps, No swelling in thyroid area. No stiffness. PULMONARY: No cough, No shortness of breath, no hemoptysis, no chest pain, No wheezing. CARDIOVASCULAR: No anginal chest pain, no PND, no orthopnea. No palpitation, no leg edema. No syncope. GASTROINTESTINAL: No abdominal pain, no nausea or vomiting. No diarrhea, No constipation. No blood in stool or black tarry stools. No abdominal distention. UROLOGIC: No burning urination. No hematuria. MUSCULOSKELETAL: No joint pain, No joint swelling, no muscle weakness. HEMATOLOGIC: No anemia, no bleeding disorder, No bruising. NEUROLOGIC: No seizures, no focal weakness but trouble in the ambulation, has some balance problem while walking, he is having physical therapy,, no speech difficulty, some memory disturbances. No tingling or numbness of the extremities. PSYCHIATRIC: No depression. No anxiety. No psychosis. SLEEP: No sleep disorder. Past medical and surgical history: -hypertension, old CV stroke, ETOH abuse. Esophageal stenosis. Chronic tremor Social history: Alcohol abuse present. He lives by himself. Denies any smoking habit Family history:\par Medications: Please review his chart for detailed list of medications. Allergies: Penicillin On exam: - Alert and oriented x3, thin built man, not in any distress. - HEENT: no icterus, no pallor, Throat: Normal. - Neck: No palpable cervical lymphadenopathy. - Chest: clear to auscultation. - Abdomen: soft, nontender, no hepatomegaly, no splenomegaly. - No focal neuro deficit. - Extremities: no finger clubbing, no leg edema. Lab: -WBC 6400, H&H of 13.8/39, [place]CV 92, [place] [address], MPV 10.9. (2017) -BUN/Creat: 9/0.8, AST 366, ALT 119, alkaline phosphatase 172, Total bilirubin : 0.3 (08/13/2017) -Vitamin B12 level--> 439 (02/15/2017) - HIT antibody screen--> negative. (06/13/2017) - alcohol--> 120 mg per dL (08/13/2017) Imaging: -CT scan of the abdomen pelvis done in February, showed hepatic steatosis, no splenomegaly. ASSESSMENT AND PLAN: 52-year-old male, who is admitted at [facility] recently for some trouble in the ambulation, has longstanding history of ETOH abuse, had several hospitalization earlier, he had slightly low platelet count on admission in the past but over the next few days it had gone up significantly high in the 700,000 range. HIT antibody negative. Once again during this hospital, platelet count is around 75,000, no new bleeding complications, also has abnormal liver function tests, had a significantly elevated alcohol level in the blood during this time, most likely cause of thrombocytopenia would be alcohol-induced bone marrow suppression and also abnormal liver function test (low thrombopoietin production). I think in the next few days platelet count is going to go up and also may cross upper limit of normal. His B12 level was around 439 earlier in February was 17. Would like to repeat Vitamin B12 level at this time. If he has low level, he will need correction for that. Will see him back in the clinic as needed. Dr. Erasmo Kessler Hem/Onc (This note was completed using the dictation program Fluency Direct. As such, there may be misspellings, word substitutions, or other variations that should not change the essence of the clinical content of this encounter note. If there is need for further clarification, please direct questions to the provider listed above.) Past Medical/Surgical History Medical Problems: (1) Abnormal ECG Status: Acute (2) Alcohol dependence Status: Acute (3) Alcohol intoxication Status: Acute (4) Anemia Status: Acute (5) Ataxia Status: Acute (6) Ataxia Status: Acute (7) Closed left clavicular fracture Status: Acute (8) Elbow fracture, left Status: Acute (9) Fall as cause of accidental injury in residential institution as place of occurrence Status: Acute (10) Generalized weakness Status: Acute (11) Hip pain, right Status: Acute (12) Homeless Status: Acute (13) Hypokalemia Status: Acute (14) Hypophosphatemia Status: Acute (15) Hypotension Status: Acute (16) Intertrochanteric fracture of right hip Status: Acute (17) Malnutrition Status: Acute (18) Pneumonia Status: Acute Family History FHx: cancer Social History Smoking Status: Former Smoker Drug Use: none Marital Status: single Housing Status: other Occupation Status: unemployed Allergies Coded Allergies: Penicillins (Verified Adverse Reaction, Mild, TIRED, 08/13/17) Current Inpatient Medications Current Inpatient Medications Medications (Trade) Dose Ordered Sig/Jaylene Route Start Time Stop Time Status Last Admin Dose Admin Ondansetron HCl (Zofran Inj) 4 mg Q6H PRN IV 08/14/17 01:30 09/13/17 01:29 Lorazepam (Ativan Inj) PRN Dosing -Active Protocol Q1H PRN IV 08/14/17 01:45 09/13/17 01:44 08/15/17 10:36 3 MG Folic Acid 1 mg/ Syringe 10 ml @ 5 mls/min QAM IV 08/14/17 09:00 09/13/17 08:59 08/15/17 08:13 5 MLS/MIN Gabapentin (Neurontin Tab) 600 mg Q8H PO 08/15/17 00:00 08/15/17 16:01 08/15/17 08:13 600 MG Gabapentin (Neurontin Tab) 600 mg Q12H PO 08/16/17 04:00 08/16/17 16:01 Gabapentin (Neurontin Tab) 600 mg Q24H PO 08/17/17 16:00 08/17/17 16:01 Thiamine HCl 100 mg/Syringe 10 ml @ 2 mls/min Q24H IV 08/15/17 04:00 09/14/17 03:59 08/15/17 04:55 2 MLS/MIN Lorazepam 1 mg/ Syringe 1 ml @ 1 mls/min Q1H PRN IV 08/14/17 03:15 09/13/17 03:14 08/15/17 11:48 1 MLS/MIN Hydralazine HCl (Apresoline Tab) 10 mg Q6H PRN PO 08/14/17 14:30 09/13/17 14:29 Acetaminophen (Tylenol Tab) 1,000 mg Q8H PRN PO 08/14/17 20:15 09/13/17 20:14 08/15/17 11:02 1,000 MG Potassium Chloride 40 meq/ Magnesium Sulfate 1 gm/ Multivitamins 10 ml/Sodium Chloride 1,030 ml @ 125 mls/hr Q8H15M IV 08/15/17 08:15 08/16/17 00:15 08/15/17 08:31 125 MLS/HR Physical Exam Date Time Temp Pulse Resp B/P (MAP) Pulse Ox O2 Delivery O2 Flow Rate FiO2 08/15/17 12:00 99 Room Air 08/15/17 11:31 36.7 82 18 157/99 (118) 99 Room Air 08/15/17 08:00 96 Room Air 08/15/17 07:19 36.4 66 20 161/98 (119) 96 Room Air 08/15/17 04:48 36.4 65 16 157/90 (112) 97 Room Air 08/15/17 04:00 Room Air 08/15/17 00:00 Room Air 08/14/17 23:10 36.8 79 20 134/84 (101) 95 Room Air 08/14/17 20:00 Room Air 08/14/17 19:00 37.4 88 18 120/75 (90) 96 Room Air 08/14/17 16:00 97 Room Air 08/14/17 16:00 97 Room Air 08/14/17 15:09 36.5 69 18 161/100 (120) 97 Room Air 169/105 (126) Laboratory Results Last 24 Hours Test 08/15/17 06:41 White Blood Count 6.49 K/uL Red Blood Count 4.24 M/uL Hemoglobin 13.8 g/dL Hematocrit 39.1 % Mean Corpuscular Volume 92.2 fL Mean Corpuscular Hemoglobin 32.5 pg Mean Corpuscular Hemoglobin Concent 35.3 g/dl RDW Standard Deviation 58.9 fL RDW Coefficient of Variation 17.5 % Platelet Count 73 K/uL Mean Platelet Volume 10.9 fL Sodium Level 129 mmol/L Potassium Level 3.2 mmol/L Chloride Level 93 mmol/L Carbon Dioxide Level 28 mmol/L Anion Gap 8.0 mmol/L Blood Urea Nitrogen 9 mg/dl Creatinine 0.64 mg/dl Est Creatinine Clear Calc Drug Dose 114.0 ml/min Estimated GFR () 129.6 Estimated GFR (Non- 111.8 BUN/Creatinine Ratio 14.0 Random Glucose 98 mg/dl Calcium Level 8.5 mg/dl Magnesium Level 1.5 mg/dl
--- NOTE | 2017-08-15 16:25 | Progress Note ---
Medicine Progress Note Date & Time of Visit: Aug 15, 2017 at 15:40 . Subjective CC: Follow-up visit for alcohol withdrawal and other problems. HPI: Restless, tachy, anxious, diaphoretic this morning. Receiving gabapentin and PRN lorazepam per protocol. Sedated at time of my assessment. ROS: Unable to obtain due to sedation. . Objective Last 8 Hrs Date Time Temp Pulse Resp B/P (MAP) Pulse Ox O2 Delivery O2 Flow Rate FiO2 08/15/17 14:48 36.8 81 18 135/90 (105) 97 Room Air 08/15/17 12:00 99 Room Air 08/15/17 11:31 36.7 82 18 157/99 (118) 99 Room Air Physical Exam: General- lying in bed; no distress Eyes- Lungs- clear to auscultation; no respiratory distress Cardiovascular- RRR; mild tachycardia; no gallop; no JVD; no pretibial edema Abdomen- + bowel sounds, soft, nontender Extremities- no cyanosis; no calf tenderness Neuro- sedated Skin- warm & dry . Laboratory Results: Last 24 Hours Test 08/15/17 06:41 08/15/17 13:42 White Blood Count 6.49 K/uL Red Blood Count 4.24 M/uL Hemoglobin 13.8 g/dL Hematocrit 39.1 % Mean Corpuscular Volume 92.2 fL Mean Corpuscular Hemoglobin 32.5 pg Mean Corpuscular Hemoglobin Concent 35.3 g/dl RDW Standard Deviation 58.9 fL RDW Coefficient of Variation 17.5 % Platelet Count 73 K/uL Mean Platelet Volume 10.9 fL Sodium Level 129 mmol/L Potassium Level 3.2 mmol/L Chloride Level 93 mmol/L Carbon Dioxide Level 28 mmol/L Anion Gap 8.0 mmol/L Blood Urea Nitrogen 9 mg/dl Creatinine 0.64 mg/dl Est Creatinine Clear Calc Drug Dose 114.0 ml/min Estimated GFR () 129.6 Estimated GFR (Non- 111.8 BUN/Creatinine Ratio 14.0 Random Glucose 98 mg/dl Calcium Level 8.5 mg/dl Magnesium Level 1.5 mg/dl Vitamin B12 Level 1442 pg/mL Folate > 24.00 ng/mL Assessment & Plan ALCOHOL ABUSE / ALCOHOL WITHDRAWAL Last alcohol consumption probably 08/13. Blood alcohol level in ED 121 md/dl. AWSS being monitored; receiving gabapentin and PRN lorazepam per protocol. Continue thiamine, folate, MVI, etc. Counseling / rehab will be recommended when patient is able to participate in discussion. ELEVATED BP'S Probably secondary to alcohol withdrawal. Hydralazine ordered PRN. HYPONATREMIA Serum Na 129. Electrolyte abnormalities probably due to inadequate intake due to alcohol consumption. IV NSS. Follow. HYPOKALEMIA Serum K 3.2. Electrolyte abnormalities probably due to inadequate intake due to alcohol consumption. IV replacement. Follow. HYPOMAGNESEMIA Serum Mg 1.5. Electrolyte abnormalities probably due to inadequate intake due to alcohol consumption. IV replacement. Follow. THROMBOCYTOPENIA Platelet count 73,000. No active bleeding. Thrombocytopenia may be secondary to alcohol abuse, even in absence of overt cirrhosis / portal hypertension. Hematology consulted. VTE PROPHYLAXIS No anticoagulants due to thrombocytopenia + alcohol abuse. SCD's. Ambulate as able. DISPOSITION To be determined. . Current Inpatient Medications: Current Inpatient Medications Medications (Trade) Dose Ordered Sig/Jaylene Route Start Time Stop Time Status Last Admin Dose Admin Ondansetron HCl (Zofran Inj) 4 mg Q6H PRN IV 08/14/17 01:30 09/13/17 01:29 Lorazepam (Ativan Inj) PRN Dosing -Active Protocol Q1H PRN IV 08/14/17 01:45 09/13/17 01:44 08/15/17 10:36 3 MG Folic Acid 1 mg/ Syringe 10 ml @ 5 mls/min QAM IV 08/14/17 09:00 09/13/17 08:59 08/15/17 08:13 5 MLS/MIN Gabapentin (Neurontin Tab) 600 mg Q12H PO 08/16/17 04:00 08/16/17 16:01 Gabapentin (Neurontin Tab) 600 mg Q24H PO 08/17/17 16:00 08/17/17 16:01 Thiamine HCl 100 mg/Syringe 10 ml @ 2 mls/min Q24H IV 08/15/17 04:00 09/14/17 03:59 08/15/17 04:55 2 MLS/MIN Lorazepam 1 mg/ Syringe 1 ml @ 1 mls/min Q1H PRN IV 08/14/17 03:15 09/13/17 03:14 08/15/17 11:48 1 MLS/MIN Hydralazine HCl (Apresoline Tab) 10 mg Q6H PRN PO 08/14/17 14:30 09/13/17 14:29 Acetaminophen (Tylenol Tab) 1,000 mg Q8H PRN PO 08/14/17 20:15 09/13/17 20:14 08/15/17 11:02 1,000 MG Potassium Chloride 40 meq/ Magnesium Sulfate 1 gm/ Multivitamins 10 ml/Sodium Chloride 1,030 ml @ 125 mls/hr Q8H15M IV 08/15/17 08:15 08/16/17 00:15 08/15/17 08:31 125 MLS/HR
[2017-08-16] VITALS (11 sets, daily range): BP systolic 114–174; BP diastolic 78–121; PULSE 73–89; TEMP 36.7–37; O2SAT 96–98
[2017-08-16] MEDS: THIAMINE HCL INJ 100 MG in SYRINGE 9 ML IV SCH (04:32)
[2017-08-16] MEDS: LORAZEPAM 1MG IV PHA DISPENSED IV PRN (04:32)
[2017-08-16] MEDS: GABAPENTIN 600MG Q12H DOSE PO SCH ×2 (04:33→15:20)
[2017-08-16] MEDS: FoLIC ACID INJ 1 MG in SYRINGE 9.8 ML IV SCH (08:56)
[2017-08-16] MEDS: LORAZEPAM 2 MG/ML 1 ML VIAL IV PRN ×3 (08:57→15:20)
[2017-08-16] MEDS ORDERED: LORAZEPAM INJ 3 MG in SYRINGE 1.5 ML IV ONE (09:00)
[2017-08-16 09:45] LABS: CREATININE 0.68 mg/dl (0.60-1.40); POTASSIUM 3.4 mmol/L (3.5-5.1)
[2017-08-16] MEDS: POTASSIUM CHLORIDE IV SCH ×2 (10:32→17:22)
[2017-08-16] MEDS: [UNRECOGNIZED DRUG - OTHER] IV SCH ×2 (10:32→17:22)
[2017-08-16] MEDS: MAG SULFATE IV SCH ×2 (10:32→17:22)
--- NOTE | 2017-08-16 20:18 | Progress Note ---
Medicine Progress Note Date & Time of Visit: Aug 16, 2017 at 16:50 . Subjective CC: Follow-up visit for alcohol withdrawal and other problems. HPI: Ongoing withdrawal symptoms- tachycardia, sweats, tremor. No chest pain. No cough or SOB. Intermittent nausea; no emesis. No urinary symptoms. No fever. Concerned about ongoing difficulty with ambulation. ROS: as noted above in HPI . Objective Last 8 Hrs Date Time Temp Pulse Resp B/P (MAP) Pulse Ox O2 Delivery O2 Flow Rate FiO2 08/16/17 19:30 36.8 87 18 138/90 (106) 97 Room Air 08/16/17 16:00 Room Air 08/16/17 14:39 36.9 73 16 122/82 (95) 96 Room Air 128/84 (99) 08/16/17 14:12 36.8 78 18 162/106 (124) 98 Room Air 174/121 (138) Physical Exam: General- lying in bed; no distress Eyes- anicteric Lungs- clear to auscultation; no respiratory distress Cardiovascular- RRR; no gallop; no JVD; no pretibial edema Abdomen- + bowel sounds, soft, nontender Extremities- no cyanosis; no calf tenderness Neuro- sleeping, but arousable; resting tremor Skin- warm & dry . Laboratory Results: Last 24 Hours Test 08/16/17 08:56 Sodium Level 125 mmol/L Potassium Level 3.4 mmol/L Chloride Level 94 mmol/L Carbon Dioxide Level 25 mmol/L Anion Gap 6.0 mmol/L Blood Urea Nitrogen 8 mg/dl Creatinine 0.68 mg/dl Est Creatinine Clear Calc Drug Dose 108.8 ml/min Estimated GFR () 126.4 Estimated GFR (Non- 109.0 BUN/Creatinine Ratio 11.4 Random Glucose 105 mg/dl Calcium Level 9.0 mg/dl Magnesium Level 1.7 mg/dl Assessment & Plan ALCOHOL ABUSE / ALCOHOL WITHDRAWAL Last alcohol consumption probably 08/13. Blood alcohol level in ED 121 md/dl. AWSS being monitored; receiving gabapentin and PRN lorazepam per protocol. Continue thiamine, folate, MVI, etc. Counseling / rehab will be recommended when patient is able to participate in discussion. ELEVATED BP'S Probably secondary to alcohol withdrawal. Hydralazine ordered PRN. HYPONATREMIA Serum Na 125. Electrolyte abnormalities probably due to inadequate intake due to alcohol consumption. IV NSS. Follow. HYPOKALEMIA Serum K as low as 3.2. Electrolyte abnormalities probably due to inadequate intake due to alcohol consumption. Receiving IV replacement. K today = 3.4. Follow. HYPOMAGNESEMIA Serum Mg as low as 1.5. Electrolyte abnormalities probably due to inadequate intake due to alcohol consumption. Receiving IV replacement. Mg today = 1.7. Follow. THROMBOCYTOPENIA Platelet count 73,000. No active bleeding. Thrombocytopenia may be secondary to alcohol abuse, even in absence of overt cirrhosis / portal hypertension. Hematology consulted. AMBULATORY DYSFUNCTION Frequent falls. PT / OT. VTE PROPHYLAXIS No anticoagulants due to thrombocytopenia + alcohol abuse. SCD's. Ambulate as able. DISPOSITION To be determined. . Current Inpatient Medications: Current Inpatient Medications Medications (Trade) Dose Ordered Sig/Jaylene Route Start Time Stop Time Status Last Admin Dose Admin Ondansetron HCl (Zofran Inj) 4 mg Q6H PRN IV 08/14/17 01:30 09/13/17 01:29 Lorazepam (Ativan Inj) PRN Dosing -Active Protocol Q1H PRN IV 08/14/17 01:45 09/13/17 01:44 08/16/17 15:20 2 MG Folic Acid 1 mg/ Syringe 10 ml @ 5 mls/min QAM IV 08/14/17 09:00 09/13/17 08:59 08/16/17 08:56 5 MLS/MIN Gabapentin (Neurontin Tab) 600 mg Q24H PO 08/17/17 16:00 08/17/17 16:01 Thiamine HCl 100 mg/Syringe 10 ml @ 2 mls/min Q24H IV 08/15/17 04:00 09/14/17 03:59 08/16/17 04:32 2 MLS/MIN Lorazepam 1 mg/ Syringe 1 ml @ 1 mls/min Q1H PRN IV 08/14/17 03:15 09/13/17 03:14 08/16/17 04:32 1 MLS/MIN Hydralazine HCl (Apresoline Tab) 10 mg Q6H PRN PO 08/14/17 14:30 09/13/17 14:29 Acetaminophen (Tylenol Tab) 1,000 mg Q8H PRN PO 08/14/17 20:15 09/13/17 20:14 08/15/17 11:02 1,000 MG Magnesium Sulfate 1 gm/Potassium Chloride 20 meq/ Sodium Chloride 1,012 ml @ 150 mls/hr Q6H45M IV 08/16/17 10:00 08/16/17 23:20 08/16/17 17:22 150 MLS/HR
[2017-08-17] VITALS (12 sets, daily range): BP systolic 147–179; BP diastolic 89–107; PULSE 74–97; TEMP 36.2–37.1; O2SAT 94–98; Ht 180.3 cm; Wt 62.2 kg
[2017-08-17] MEDS: LORAZEPAM 1MG IV PHA DISPENSED IV PRN ×2 (02:37→07:08)
[2017-08-17] MEDS: THIAMINE HCL INJ 100 MG in SYRINGE 9 ML IV SCH (02:38)
[2017-08-17 07:26] LABS: HEMOGLOBIN 13.4 g/dL (14.0-18.0); MEAN CORPUSCULAR HEMOGLOBIN 33.3 pg (25-34); MEAN CORPUSCULAR HGB CONC 36.2 g/dl (32-36); MEAN PLATELET VOLUME 10.5 fL (7.4-10.4); PLATELET COUNT 112 K/uL (130-400); RED CELL DISTRIBUTION WIDTH CV 16.9 % (11.5-14.5); RED CELL DISTRIBUTION WIDTH SD 56.7 fL (36.4-46.3); WHITE BLOOD COUNT 10.74 K/uL (4.8-10.8)
[2017-08-17 07:35] LABS: CALCIUM 8.8 mg/dl (8.5-10.1); CREATININE 0.46 mg/dl (0.60-1.40); PHOSPHORUS 3.7 mg/dl (2.5-4.9); POTASSIUM 3.8 mmol/L (3.5-5.1)
[2017-08-17] MEDS: LORAZEPAM 2 MG/ML 1 ML VIAL IV PRN ×3 (07:38→12:09)
[2017-08-17] MEDS: FoLIC ACID INJ 1 MG in SYRINGE 9.8 ML IV SCH (08:08)
[2017-08-17] MEDS: ACETAMINOPHEN 500 MG TAB PO PRN (10:02)
[2017-08-17] MEDS ORDERED: LORAZEPAM 2 MG TAB ONE (14:09)
[2017-08-17] MEDS ORDERED: LORAZEPAM 2 MG/ML 1 ML VIAL IV PRN ×2 (14:15→14:45)
[2017-08-17] MEDS ORDERED: LORAZEPAM 1 MG TAB PO PRN (14:15)
[2017-08-17] MEDS ORDERED: LORAZEPAM 1MG IV PHA DISPENSED IV PRN (15:00)
[2017-08-17] MEDS ORDERED: GABAPENTIN 600MG Q24H DOSE PO SCH (16:00)
[2017-08-17] MEDS ORDERED: LORAZEPAM INJ 1 MG in SYRINGE 0.5 ML IV ONE (17:45)
[2017-08-17] MEDS: NSS + 20MEQ KCL 1000ML 1,000 ML IV SCH (21:12)
[2017-08-18] VITALS (11 sets, daily range): BP systolic 139–166; BP diastolic 80–105; PULSE 84–99; TEMP 36.2–37.5; O2SAT 96–100
--- NOTE | 2017-08-18 04:06 | Progress Note ---
Medicine Progress Note Date & Time of Visit: Aug 17, 2017 at 14:00 . Subjective CC: Follow-up visit for alcohol withdrawal and other problems. HPI: Intermittent withdrawal symptoms- tachycardia, sweats, tremor. No chest pain. No cough or SOB. No nausea or vomiting. No urinary symptoms. No fever. Unsteady gait. ROS: as noted above in HPI . Objective VS @ 08:20 36.8 94 20 167/107 . Physical Exam: General- sitting on edge of bed; no distress Eyes- anicteric Lungs- clear to auscultation; no respiratory distress Cardiovascular- RRR; no gallop; no JVD; no pretibial edema Abdomen- + bowel sounds, soft, nontender Extremities- no cyanosis; no calf tenderness Neuro- alert, more oriented, unsteady gait Skin- warm & dry . Laboratory Results: Last 24 Hours Test 08/17/17 06:43 White Blood Count 10.74 K/uL Red Blood Count 4.02 M/uL Hemoglobin 13.4 g/dL Hematocrit 37.0 % Mean Corpuscular Volume 92.0 fL Mean Corpuscular Hemoglobin 33.3 pg Mean Corpuscular Hemoglobin Concent 36.2 g/dl RDW Standard Deviation 56.7 fL RDW Coefficient of Variation 16.9 % Platelet Count 112 K/uL Mean Platelet Volume 10.5 fL Sodium Level 124 mmol/L Potassium Level 3.8 mmol/L Chloride Level 92 mmol/L Carbon Dioxide Level 22 mmol/L Anion Gap 10.0 mmol/L Blood Urea Nitrogen 7 mg/dl Creatinine 0.46 mg/dl Est Creatinine Clear Calc Drug Dose 158.4 ml/min Estimated GFR () 148.4 Estimated GFR (Non- 128.0 BUN/Creatinine Ratio 15.8 Random Glucose 94 mg/dl Calcium Level 8.8 mg/dl Phosphorus Level 3.7 mg/dl Magnesium Level 1.8 mg/dl Assessment & Plan ALCOHOL ABUSE / ALCOHOL WITHDRAWAL Last alcohol consumption probably 08/13. Blood alcohol level in ED 121 md/dl. AWSS being monitored; receiving gabapentin and PRN lorazepam per protocol. Continue thiamine, folate, MVI, etc. Counseling / rehab will be recommended when patient is able to participate in discussion. ELEVATED BP'S Probably secondary to alcohol withdrawal. Hydralazine ordered PRN. HYPONATREMIA Serum Na 124. Electrolyte abnormalities probably due to inadequate intake due to alcohol consumption. IV NSS. Follow. HYPOKALEMIA Serum K as low as 3.2. Electrolyte abnormalities probably due to inadequate intake due to alcohol consumption. Receiving IV replacement. K today = 3.8. Follow. HYPOMAGNESEMIA Serum Mg as low as 1.5. Electrolyte abnormalities probably due to inadequate intake due to alcohol consumption. Received IV replacement. Mg today = 1.8. Follow. THROMBOCYTOPENIA Platelet count as low as 73,000. No active bleeding. Thrombocytopenia may be secondary to alcohol abuse, even in absence of overt cirrhosis / portal hypertension. Hematology consulted. Platelet count today 112,000. AMBULATORY DYSFUNCTION Frequent falls. PT / OT. VTE PROPHYLAXIS No anticoagulants due to thrombocytopenia + alcohol abuse. SCD's. Ambulate as able. DISPOSITION To be determined. . Current Inpatient Medications: Current Inpatient Medications Medications (Trade) Dose Ordered Sig/Jaylene Route Start Time Stop Time Status Last Admin Dose Admin Ondansetron HCl (Zofran Inj) 4 mg Q6H PRN IV 08/14/17 01:30 09/13/17 01:29 Folic Acid 1 mg/ Syringe 10 ml @ 5 mls/min QAM IV 08/14/17 09:00 09/13/17 08:59 08/17/17 08:08 5 MLS/MIN Thiamine HCl 100 mg/Syringe 10 ml @ 2 mls/min Q24H IV 08/15/17 04:00 09/14/17 03:59 08/17/17 02:38 2 MLS/MIN Hydralazine HCl (Apresoline Tab) 10 mg Q6H PRN PO 08/14/17 14:30 09/13/17 14:29 Acetaminophen (Tylenol Tab) 1,000 mg Q8H PRN PO 08/14/17 20:15 09/13/17 20:14 08/17/17 10:02 1,000 MG Lorazepam (Ativan Tab) PRN Dosing -Active Protocol UD PRN PO 08/17/17 14:15 09/16/17 14:14 08/17/17 14:40 1 MG Lorazepam (Ativan Inj) PRN Dosing -Active Protocol Q1H PRN IV 08/17/17 14:45 09/13/17 01:44 08/17/17 16:57 1.5 MG Lorazepam 1 mg/ Syringe 1 ml @ 1 mls/min Q1H PRN IV 08/17/17 15:00 09/16/17 14:59 08/18/17 01:28 1 MLS/MIN Potassium Chloride/Sodium Chloride 1,000 ml @ 125 mls/hr Q8H IV 08/17/17 21:00 09/16/17 20:59 08/17/17 21:12 125 MLS/HR
[2017-08-18] MEDS: THIAMINE HCL INJ 100 MG in SYRINGE 9 ML IV SCH (04:17)
[2017-08-18] MEDS: NSS + 20MEQ KCL 1000ML 1,000 ML IV SCH ×3 (05:17→21:46)
[2017-08-18 08:02] LABS: CALCIUM 8.4 mg/dl (8.5-10.1); CREATININE 0.45 mg/dl (0.60-1.40)
[2017-08-18] MEDS: FoLIC ACID INJ 1 MG in SYRINGE 9.8 ML IV SCH (09:03)
[2017-08-18] MEDS: ACETAMINOPHEN 500 MG TAB PO PRN (19:13)
--- NOTE | 2017-08-18 20:36 | Progress Note ---
Medicine Progress Note Date & Time of Visit: Aug 18, 2017 at 15:20 . Subjective CC: Follow-up visit for alcohol withdrawal and other problems. HPI: Severe intermittent withdrawal symptoms yesterday, better today so far. No chest pain. No cough or SOB. No nausea or vomiting. No urinary symptoms. No fever. ROS: as noted above in HPI . Objective Last 8 Hrs Date Time Temp Pulse Resp B/P (MAP) Pulse Ox O2 Delivery O2 Flow Rate FiO2 08/18/17 19:53 Room Air 08/18/17 19:48 37.0 94 18 139/80 (99) 96 Room Air 08/18/17 18:19 92 144/93 (110) 08/18/17 16:00 99 Room Air 08/18/17 15:36 36.9 99 18 166/105 (125) 99 Room Air Physical Exam: General- sitting on edge of bed; no distress Eyes- anicteric ENT- hard of hearing Lungs- clear to auscultation; no respiratory distress Cardiovascular- RRR; no gallop; no JVD; no pretibial edema Abdomen- + bowel sounds, soft, nontender Extremities- no cyanosis; no calf tenderness Neuro- alert, no apparent hallucinations; resting tremor Skin- warm & dry . Laboratory Results: Last 24 Hours Test 08/18/17 07:09 Sodium Level 131 mmol/L Potassium Level 4.0 mmol/L Chloride Level 99 mmol/L Carbon Dioxide Level 23 mmol/L Anion Gap 8.0 mmol/L Blood Urea Nitrogen 7 mg/dl Creatinine 0.45 mg/dl Est Creatinine Clear Calc Drug Dose 171.3 ml/min Estimated GFR () 149.7 Estimated GFR (Non- 129.2 BUN/Creatinine Ratio 15.1 Random Glucose 87 mg/dl Calcium Level 8.4 mg/dl Magnesium Level 1.7 mg/dl Assessment & Plan ALCOHOL ABUSE / ALCOHOL WITHDRAWAL Last alcohol consumption probably 08/13. Blood alcohol level in ED 121 md/dl. AWSS being monitored; receiving gabapentin and PRN lorazepam per protocol. Continue thiamine, folate, MVI, etc. Counseling / rehab will be recommended when patient is able to participate in discussion. ELEVATED BP'S Probably secondary to alcohol withdrawal. Hydralazine ordered PRN. HYPONATREMIA Serum Na as low as 124. Electrolyte abnormalities probably due to inadequate intake due to alcohol consumption. Received IV NSS. Sodium today = 131. Follow. HYPOKALEMIA Serum K as low as 3.2. Electrolyte abnormalities probably due to inadequate intake due to alcohol consumption. Receiving IV replacement. K today = 4.0. Follow. HYPOMAGNESEMIA Serum Mg as low as 1.5. Electrolyte abnormalities probably due to inadequate intake due to alcohol consumption. Received IV replacement. Mg today = 1.7. Follow. THROMBOCYTOPENIA Platelet count as low as 73,000. No active bleeding. Thrombocytopenia may be secondary to alcohol abuse, even in absence of overt cirrhosis / portal hypertension. Hematology consulted. Platelet count 08/17 112,000. AMBULATORY DYSFUNCTION Frequent falls. PT / OT. VTE PROPHYLAXIS No anticoagulants due to thrombocytopenia + alcohol abuse. SCD's. Ambulate as able. DISPOSITION To be determined. May need skilled care or rehab. . Current Inpatient Medications: Current Inpatient Medications Medications (Trade) Dose Ordered Sig/Jaylene Route Start Time Stop Time Status Last Admin Dose Admin Ondansetron HCl (Zofran Inj) 4 mg Q6H PRN IV 08/14/17 01:30 09/13/17 01:29 Folic Acid 1 mg/ Syringe 10 ml @ 5 mls/min QAM IV 08/14/17 09:00 09/13/17 08:59 08/18/17 09:03 5 MLS/MIN Thiamine HCl 100 mg/Syringe 10 ml @ 2 mls/min Q24H IV 08/15/17 04:00 09/14/17 03:59 08/18/17 04:17 2 MLS/MIN Hydralazine HCl (Apresoline Tab) 10 mg Q6H PRN PO 08/14/17 14:30 09/13/17 14:29 Acetaminophen (Tylenol Tab) 1,000 mg Q8H PRN PO 08/14/17 20:15 09/13/17 20:14 08/18/17 19:13 1,000 MG Lorazepam (Ativan Tab) PRN Dosing -Active Protocol UD PRN PO 08/17/17 14:15 09/16/17 14:14 08/17/17 14:40 1 MG Lorazepam (Ativan Inj) PRN Dosing -Active Protocol Q1H PRN IV 08/17/17 14:45 09/13/17 01:44 08/17/17 16:57 1.5 MG Lorazepam 1 mg/ Syringe 1 ml @ 1 mls/min Q1H PRN IV 08/17/17 15:00 09/16/17 14:59 08/18/17 01:28 1 MLS/MIN Potassium Chloride/Sodium Chloride 1,000 ml @ 125 mls/hr Q8H IV 08/17/17 21:00 09/16/17 20:59 08/18/17 12:34 125 MLS/HR
[2017-08-19 01:23] LABS: CALCIUM 8.3 mg/dl (8.5-10.1); CREATININE 0.65 mg/dl (0.60-1.40)
[2017-08-19 02:42] VITALS: BP 177/97; PULSE 78; TEMP 36.8; O2SAT 99
[2017-08-19] MEDS: THIAMINE HCL INJ 100 MG in SYRINGE 9 ML IV SCH (04:42)
[2017-08-19] MEDS: MAG SULFATE IV SCH ×3 (05:59→20:56)
[2017-08-19] MEDS: [UNRECOGNIZED DRUG - OTHER] IV SCH ×3 (05:59→20:56)
[2017-08-19] MEDS: POTASSIUM CHLORIDE IV SCH ×3 (05:59→20:56)
[2017-08-19] MEDS: ACETAMINOPHEN 500 MG TAB PO PRN ×3 (06:03→23:29)
[2017-08-19] MEDS ORDERED: MAGNESIUM SULFATE 1GM / D5W 1 GM in PREMIXED IN D5W 100 ML IV ONE (09:00)
[2017-08-19] MEDS: FoLIC ACID INJ 1 MG in SYRINGE 9.8 ML IV SCH (09:15)
[2017-08-19] MEDS: METOPROLOL TARTRATE 25 MG TAB PO SCH ×2 (11:53→20:53)
[2017-08-19 12:13] VITALS: BP 190/96; PULSE 75; TEMP 36.6; O2SAT 99
[2017-08-19 13:45] VITALS: BP 154/88
[2017-08-19 15:17] VITALS: BP 165/98; PULSE 72; TEMP 36.9; O2SAT 96
--- NOTE | 2017-08-19 19:02 | Progress Note ---
Medicine Progress Note Date & Time of Visit: Aug 19, 2017 at 14:45 . Subjective CC: Follow-up visit for alcohol withdrawal and other problems. HPI: Better. Has not required any lorazepam for withdrawal symptoms since yesterday. Tremor improved. No hallucinations. No chest pain. No cough or SOB. No nausea or vomiting. No urinary symptoms. No fever. ROS: as noted above in HPI . Objective Last 8 Hrs Date Time Temp Pulse Resp B/P (MAP) Pulse Ox O2 Delivery O2 Flow Rate FiO2 08/19/17 16:00 Room Air 08/19/17 15:17 36.9 72 18 165/98 (120) 96 Room Air 08/19/17 13:45 154/88 (110) 08/19/17 12:13 36.6 75 16 190/96 (127) 99 Room Air 08/19/17 12:00 Room Air Physical Exam: General- lying in bed; no distress Eyes- anicteric ENT- hard of hearing Lungs- clear to auscultation; no respiratory distress Cardiovascular- RRR; no gallop; no JVD; no pretibial edema Abdomen- + bowel sounds, soft, nontender Extremities- no cyanosis; no calf tenderness Neuro- alert, no apparent hallucinations; resting tremor Skin- warm & dry . Laboratory Results: Last 24 Hours Test 08/19/17 00:40 Sodium Level 126 mmol/L Potassium Level 4.0 mmol/L Chloride Level 94 mmol/L Carbon Dioxide Level 24 mmol/L Anion Gap 8.0 mmol/L Blood Urea Nitrogen 10 mg/dl Creatinine 0.65 mg/dl Est Creatinine Clear Calc Drug Dose 118.6 ml/min Estimated GFR () 128.7 Estimated GFR (Non- 111.1 BUN/Creatinine Ratio 15.5 Random Glucose 101 mg/dl Calcium Level 8.3 mg/dl Magnesium Level 1.5 mg/dl Assessment & Plan ALCOHOL ABUSE / ALCOHOL WITHDRAWAL Last alcohol consumption probably 08/13. Blood alcohol level in ED 121 md/dl. AWSS monitored; received gabapentin and PRN lorazepam per protocol. Continue thiamine, folate, MVI, etc. Counseling / rehab will be recommended when patient is able to participate in discussion. ELEVATED BP'S Probably secondary to alcohol withdrawal. Hydralazine ordered PRN. Add metoprolol. ARRHYTHMIAS Short runs of narrow complex tachycardia. 1 run of ? wide complex tachycardia- may have been artifact. Management of electrolytes as discussed below. Add metoprolol. HYPONATREMIA Serum Na as low as 124. Electrolyte abnormalities probably due to inadequate intake due to alcohol consumption. Received IV NSS. Sodium today = 126. Follow. HYPOKALEMIA Serum K as low as 3.2. Electrolyte abnormalities probably due to inadequate intake due to alcohol consumption. Receiving IV replacement. K today = 4.0. Follow. HYPOMAGNESEMIA Serum Mg as low as 1.5. Electrolyte abnormalities probably due to inadequate intake due to alcohol consumption. Received IV replacement. Mg today = 1.5. Follow. THROMBOCYTOPENIA Platelet count as low as 73,000. No active bleeding. Thrombocytopenia may be secondary to alcohol abuse, even in absence of overt cirrhosis / portal hypertension. Hematology consulted. Platelet count 08/17 112,000. AMBULATORY DYSFUNCTION Ataxic gait with frequent falls. Consider cerebellar degeneration. Consult Neuro consult when better. PT / OT. VTE PROPHYLAXIS No anticoagulants due to thrombocytopenia + alcohol abuse. SCD's. Ambulate as able. DISPOSITION To be determined. May need skilled care or rehab. . Current Inpatient Medications: Current Inpatient Medications Medications (Trade) Dose Ordered Sig/Jaylene Route Start Time Stop Time Status Last Admin Dose Admin Ondansetron HCl (Zofran Inj) 4 mg Q6H PRN IV 08/14/17 01:30 09/13/17 01:29 Folic Acid 1 mg/ Syringe 10 ml @ 5 mls/min QAM IV 08/14/17 09:00 09/13/17 08:59 08/19/17 09:15 5 MLS/MIN Thiamine HCl 100 mg/Syringe 10 ml @ 2 mls/min Q24H IV 08/15/17 04:00 09/14/17 03:59 08/19/17 04:42 2 MLS/MIN Hydralazine HCl (Apresoline Tab) 10 mg Q6H PRN PO 08/14/17 14:30 09/13/17 14:29 Acetaminophen (Tylenol Tab) 1,000 mg Q8H PRN PO 08/14/17 20:15 09/13/17 20:14 08/19/17 16:18 1,000 MG Lorazepam (Ativan Tab) PRN Dosing -Active Protocol UD PRN PO 08/17/17 14:15 09/16/17 14:14 08/17/17 14:40 1 MG Lorazepam (Ativan Inj) PRN Dosing -Active Protocol Q1H PRN IV 08/17/17 14:45 09/13/17 01:44 08/17/17 16:57 1.5 MG Lorazepam 1 mg/ Syringe 1 ml @ 1 mls/min Q1H PRN IV 08/17/17 15:00 09/16/17 14:59 08/18/17 01:28 1 MLS/MIN Magnesium Sulfate 1 gm/Potassium Chloride 20 meq/ Sodium Chloride 1,012 ml @ 75 mls/hr [id number] IV 08/19/17 05:00 09/18/17 04:59 08/19/17 18:28 75 MLS/HR Metoprolol Tartrate (Lopressor Tab) 25 mg BID PO 08/19/17 09:00 09/18/17 08:59 08/19/17 11:53 25 MG
[2017-08-19 20:39] VITALS: BP 172/93; PULSE 71; TEMP 37.2; O2SAT 97
[2017-08-19 23:16] VITALS: BP 189/108; PULSE 73; TEMP 36.8; O2SAT 96
[2017-08-19] MEDS: HydrALAZINE 10 MG TAB PO PRN (23:29)
[2017-08-20] VITALS (7 sets, daily range): BP systolic 163–178; BP diastolic 90–102; PULSE 64–75; TEMP 36.8–37.1; O2SAT 96–99
[2017-08-20] MEDS: THIAMINE HCL INJ 100 MG in SYRINGE 9 ML IV SCH (03:49)
[2017-08-20 07:12] LABS: HEMATOCRIT 36.2 % (42-52); HEMOGLOBIN 13.3 g/dL (14.0-18.0); MEAN CELL VOLUME 91.9 fL (80-100); MEAN CORPUSCULAR HEMOGLOBIN 33.8 pg (25-34); MEAN CORPUSCULAR HGB CONC 36.7 g/dl (32-36); MEAN PLATELET VOLUME 9.2 fL (7.4-10.4); PLATELET COUNT 276 K/uL (130-400); RED CELL DISTRIBUTION WIDTH CV 16.2 % (11.5-14.5); RED CELL DISTRIBUTION WIDTH SD 54.4 fL (36.4-46.3); WHITE BLOOD COUNT 8.79 K/uL (4.8-10.8)
[2017-08-20] MEDS: METOPROLOL TARTRATE 25 MG TAB PO SCH ×2 (08:45→20:52)
[2017-08-20] MEDS: FoLIC ACID INJ 1 MG in SYRINGE 9.8 ML IV SCH (08:46)
[2017-08-20] MEDS: ACETAMINOPHEN 500 MG TAB PO PRN (19:36)
--- NOTE | 2017-08-20 19:51 | Progress Note ---
Medicine Progress Note Date & Time of Visit: Aug 20, 2017 at 11:40 . Subjective CC: Follow-up visit for alcohol withdrawal and other problems. HPI: Generally better, but confused for a while this morning. Tremor improved. No hallucinations. No chest pain. No cough or SOB. No nausea or vomiting. No urinary symptoms. No fever. ROS: as noted above in HPI . Objective Last 8 Hrs Date Time Temp Pulse Resp B/P (MAP) Pulse Ox O2 Delivery O2 Flow Rate FiO2 08/20/17 18:54 36.9 75 18 163/98 (119) 97 Room Air 08/20/17 16:00 Room Air 08/20/17 14:35 37.1 68 20 170/90 (116) 97 08/20/17 12:00 Room Air Physical Exam: General- lying in bed; no distress Eyes- anicteric ENT- hard of hearing Lungs- clear to auscultation; no respiratory distress Cardiovascular- RRR; no gallop; no JVD; no pretibial edema Abdomen- + bowel sounds, soft, nontender Extremities- no cyanosis; no calf tenderness Neuro- alert, PERRL, no nystagmus, no apparent hallucinations; mild resting tremor Skin- warm & dry . Laboratory Results: Last 24 Hours Test 08/20/17 06:25 White Blood Count 8.79 K/uL Red Blood Count 3.94 M/uL Hemoglobin 13.3 g/dL Hematocrit 36.2 % Mean Corpuscular Volume 91.9 fL Mean Corpuscular Hemoglobin 33.8 pg Mean Corpuscular Hemoglobin Concent 36.7 g/dl RDW Standard Deviation 54.4 fL RDW Coefficient of Variation 16.2 % Platelet Count 276 K/uL Mean Platelet Volume 9.2 fL Assessment & Plan ALCOHOL ABUSE / ALCOHOL WITHDRAWAL Last alcohol consumption probably 08/13. Blood alcohol level in ED 121 md/dl. AWSS monitored; received gabapentin and PRN lorazepam per protocol. Continue thiamine, folate, MVI, etc. Counseling / rehab will be recommended when patient is able to participate in discussion. ELEVATED BP'S Probably secondary to alcohol withdrawal. Hydralazine ordered PRN. Add metoprolol. ARRHYTHMIAS Short runs of narrow complex tachycardia. 1 run of ? wide complex tachycardia- may have been artifact. Management of electrolytes as discussed below. Add metoprolol. HYPONATREMIA Serum Na as low as 124. Electrolyte abnormalities probably due to inadequate intake due to alcohol consumption. Received IV NSS. Sodium 2/3 was 126. Follow. HYPOKALEMIA Serum K as low as 3.2. Electrolyte abnormalities probably due to inadequate intake due to alcohol consumption. Receiving IV replacement. K 2/3 was 4.0. Follow. HYPOMAGNESEMIA Serum Mg as low as 1.5. Electrolyte abnormalities probably due to inadequate intake due to alcohol consumption. Received IV replacement. Mg 2/3 was 1.5. Follow. THROMBOCYTOPENIA Platelet count as low as 73,000. No active bleeding. Thrombocytopenia may be secondary to alcohol abuse, even in absence of overt cirrhosis / portal hypertension. Hematology consulted. Platelet count today = 276,000. AMBULATORY DYSFUNCTION Ataxic gait with frequent falls for at least past few months. Consider cerebellar degeneration. MRI brain 06/13/17 showed old lacunar infarct left basal ganglia, ventricular prominence, minimal microvascular ischemic changes. Consult Neuro. PT / OT. VTE PROPHYLAXIS No anticoagulants due to thrombocytopenia + alcohol abuse. SCD's. Ambulate as able. DISPOSITION To be determined. May need skilled care or rehab. . Current Inpatient Medications: Current Inpatient Medications Medications (Trade) Dose Ordered Sig/Jaylene Route Start Time Stop Time Status Last Admin Dose Admin Ondansetron HCl (Zofran Inj) 4 mg Q6H PRN IV 08/14/17 01:30 09/13/17 01:29 Folic Acid 1 mg/ Syringe 10 ml @ 5 mls/min QAM IV 08/14/17 09:00 09/13/17 08:59 08/20/17 08:46 5 MLS/MIN Thiamine HCl 100 mg/Syringe 10 ml @ 2 mls/min Q24H IV 08/15/17 04:00 09/14/17 03:59 08/20/17 03:49 2 MLS/MIN Hydralazine HCl (Apresoline Tab) 10 mg Q6H PRN PO 08/14/17 14:30 09/13/17 14:29 08/19/17 23:29 10 MG Acetaminophen (Tylenol Tab) 1,000 mg Q8H PRN PO 08/14/17 20:15 09/13/17 20:14 08/20/17 19:36 1,000 MG Lorazepam (Ativan Tab) PRN Dosing -Active Protocol UD PRN PO 08/17/17 14:15 09/16/17 14:14 08/17/17 14:40 1 MG Lorazepam (Ativan Inj) PRN Dosing -Active Protocol Q1H PRN IV 08/17/17 14:45 09/13/17 01:44 08/17/17 16:57 1.5 MG Lorazepam 1 mg/ Syringe 1 ml @ 1 mls/min Q1H PRN IV 08/17/17 15:00 09/16/17 14:59 08/18/17 01:28 1 MLS/MIN Magnesium Sulfate 1 gm/Potassium Chloride 20 meq/ Sodium Chloride 1,012 ml @ 75 mls/hr [id number] IV 08/19/17 05:00 09/18/17 04:59 08/19/17 20:56 75 MLS/HR Metoprolol Tartrate (Lopressor Tab) 25 mg BID PO 08/19/17 09:00 09/18/17 08:59 08/20/17 08:45 25 MG
[2017-08-21] VITALS (11 sets, daily range): BP systolic 135–183; BP diastolic 86–96; PULSE 60–78; TEMP 36.5–37.6; O2SAT 97–100
[2017-08-21] MEDS: [UNRECOGNIZED DRUG - OTHER] IV SCH ×2 (01:10→11:00)
[2017-08-21] MEDS: MAG SULFATE IV SCH ×2 (01:10→11:00)
[2017-08-21] MEDS: POTASSIUM CHLORIDE IV SCH ×2 (01:10→11:00)
[2017-08-21] MEDS: THIAMINE HCL INJ 100 MG in SYRINGE 9 ML IV SCH (04:29)
[2017-08-21] MEDS: FoLIC ACID INJ 1 MG in SYRINGE 9.8 ML IV SCH (07:32)
[2017-08-21] MEDS: METOPROLOL TARTRATE 25 MG TAB PO SCH ×2 (07:32→21:39)
[2017-08-21] MEDS: HydrALAZINE 10 MG TAB PO PRN (07:38)
[2017-08-21] MEDS: ACETAMINOPHEN 500 MG TAB PO PRN ×2 (07:51→20:16)
[2017-08-21 07:53] LABS: HEMATOCRIT 38.1 % (42-52); HEMOGLOBIN 13.8 g/dL (14.0-18.0); MEAN CELL VOLUME 91.8 fL (80-100); MEAN CORPUSCULAR HEMOGLOBIN 33.3 pg (25-34); MEAN CORPUSCULAR HGB CONC 36.2 g/dl (32-36); MEAN PLATELET VOLUME 8.6 fL (7.4-10.4); PLATELET COUNT 343 K/uL (130-400); RED CELL DISTRIBUTION WIDTH CV 16.1 % (11.5-14.5); RED CELL DISTRIBUTION WIDTH SD 53.9 fL (36.4-46.3); WHITE BLOOD COUNT 8.47 K/uL (4.8-10.8)
[2017-08-21 08:23] LABS: ALBUMIN 3.4 gm/dl (3.4-5.0); CALCIUM 9.1 mg/dl (8.5-10.1); CREATININE 0.53 mg/dl (0.60-1.40)
[2017-08-21 08:25] LABS: TOTAL PROTEIN 7.7 gm/dl (6.4-8.2)
--- NOTE | 2017-08-21 14:44 | Neurology Consultation ---
Neurology Consultation Date of Consultation: Aug 21, 2017. Attending Physician: David Bingham M.D. Primary Care Physician: No Doctor, Assigned Reason for Consultation: ataxic gait History of Present Illness Source: patient Aaron is a 52 year old male with PMH HTN, old CVA, past tobacco abuse, EtoH abuse, chronic anemia, tremor. Apparently he was brought to the ED because of weakness in both legs. he states he usually walks around in his apartment using furniture to hold onto instead of using his walker. He states he was a heavy beer drinker at least 6 per day but hasn't had anything to drink for a month. His blood EtoH level on admission was 120.8. PT is in the room walking him with a walker and he is doing well. Walking down the turner. She reports this is much better than yesterday. He was seen in May by Dr Ji neurology and an MRI was done at that time that showed cerebral atrophy. denies CP, SOB, abdominal pain, weakness, numbness tingling, N, V, +hip and knee pain (s/p hip fracture and surgery 02/2017). Past Medical/Surgical History Medical Problems: (1) Abnormal ECG Status: Acute (2) Alcohol dependence Status: Acute (3) Alcohol intoxication Status: Acute (4) Anemia Status: Acute (5) Ataxia Status: Acute (6) Ataxia Status: Acute (7) Closed left clavicular fracture Status: Acute (8) Elbow fracture, left Status: Acute (9) Fall as cause of accidental injury in residential institution as place of occurrence Status: Acute (10) Generalized weakness Status: Acute (11) Hip pain, right Status: Acute (12) Homeless Status: Acute (13) Hypokalemia Status: Acute (14) Hypophosphatemia Status: Acute (15) Hypotension Status: Acute (16) Intertrochanteric fracture of right hip Status: Acute (17) Malnutrition Status: Acute (18) Pneumonia Status: Acute Social History Drug Use: none Marital Status: single Housing Status: other Occupation Status: unemployed Allergies Coded Allergies: Penicillins (Verified Adverse Reaction, Mild, TIRED, 08/13/17) Current Inpatient Medications Current Inpatient Medications Medications (Trade) Dose Ordered Sig/Jaylene Route Start Time Stop Time Status Last Admin Dose Admin Ondansetron HCl (Zofran Inj) 4 mg Q6H PRN IV 08/14/17 01:30 09/13/17 01:29 Folic Acid 1 mg/ Syringe 10 ml @ 5 mls/min QAM IV 08/14/17 09:00 09/13/17 08:59 08/21/17 07:32 5 MLS/MIN Thiamine HCl 100 mg/Syringe 10 ml @ 2 mls/min Q24H IV 08/15/17 04:00 09/14/17 03:59 08/21/17 04:29 2 MLS/MIN Hydralazine HCl (Apresoline Tab) 10 mg Q6H PRN PO 08/14/17 14:30 09/13/17 14:29 08/21/17 07:38 10 MG Acetaminophen (Tylenol Tab) 1,000 mg Q8H PRN PO 08/14/17 20:15 09/13/17 20:14 08/21/17 07:51 1,000 MG Lorazepam (Ativan Tab) PRN Dosing -Active Protocol UD PRN PO 08/17/17 14:15 09/16/17 14:14 08/17/17 14:40 1 MG Lorazepam (Ativan Inj) PRN Dosing -Active Protocol Q1H PRN IV 08/17/17 14:45 09/13/17 01:44 08/17/17 16:57 1.5 MG Lorazepam 1 mg/ Syringe 1 ml @ 1 mls/min Q1H PRN IV 08/17/17 15:00 09/16/17 14:59 08/18/17 01:28 1 MLS/MIN Magnesium Sulfate 1 gm/Potassium Chloride 20 meq/ Sodium Chloride 1,012 ml @ 75 mls/hr [id number] IV 08/19/17 05:00 09/18/17 04:59 08/21/17 11:00 75 MLS/HR Metoprolol Tartrate (Lopressor Tab) 25 mg BID PO 08/19/17 09:00 09/18/17 08:59 08/21/17 07:32 25 MG Physical Exam Vital Signs (Past 24 Hrs): Date Time Temp Pulse Resp B/P (MAP) Pulse Ox O2 Delivery O2 Flow Rate FiO2 08/21/17 12:00 99 Room Air 08/21/17 11:25 36.9 60 18 177/87 (117) 97 Room Air 08/21/17 07:50 99 Room Air 08/21/17 07:35 36.5 73 18 182/96 (124) 99 Room Air 08/21/17 04:00 Room Air 08/21/17 02:45 36.9 67 18 166/92 (116) 97 Room Air 08/21/17 00:00 Room Air 08/20/17 22:56 37.0 64 20 178/99 (125) 96 Room Air 08/20/17 20:51 74 16 171/102 (125) 97 Room Air 08/20/17 20:00 Room Air 08/20/17 18:54 36.9 75 18 163/98 (119) 97 Room Air 08/20/17 16:00 Room Air Physical Exam: Constitutional: appearance disheveled, appears older than stated age Ears, Nose, Mouth and Throat: mucous membranes moist, no injection and skin normal, eyes normal Cardiovascular: normal S-1 and S-2 and regular rate and rhythm Respiratory: clear to auscultation (CTA) and no rales, rhonchi or wheeze Musculoskeletal: no peripheral edema and good distal pulses Skin: no stigmata of neurocutaneous disease noted and normal and intact Eyes: extraocular muscles intact (EOMI) and pupils equal, round and reactive to light (PERRL), left horizontal lateral ptosis NEUROLOGIC EXAMINATION: Mental status: Alert and interactive Oriented [facility], 08/21/2017, knows were he lives Oriented to person Speech fluent with no evidence of aphasia Cranial Nerves smile eye brow raise symmetric Reflexes: Deep tendon reflexes were symmetrical and graded 2/5. Sensory: decreased sensation vibration, cool touch to ankle, GT proprioception intact Coordination: finger to nose no bi pass, slight reaching tremor no resting tremor or cogwheeling Gait/Stance: Posture stands with minimal assistance, tandem gait with walker Motor: Negative for pronator drift of out stretched arms with eyes closed. 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 5/5 bilaterally hip flex plantar flex ext 5/ 5 Laboratory Results Past 24 Hours: 08/21/17 07:29 08/21/17 07:29 Test 08/21/17 07:29 Red Blood Count 4.15 M/uL (4.7-6.1) Mean Corpuscular Volume 91.8 fL (80-100) Mean Corpuscular Hemoglobin 33.3 pg (25-34) Mean Corpuscular Hemoglobin Concent 36.2 g/dl (32-36) RDW Standard Deviation 53.9 fL (36.4-46.3) RDW Coefficient of Variation 16.1 % (11.5-14.5) Mean Platelet Volume 8.6 fL (7.4-10.4) Anion Gap 9.0 mmol/L (3-11) Est Creatinine Clear Calc Drug Dose 143.4 ml/min Estimated GFR () 140.0 Estimated GFR (Non- 120.8 BUN/Creatinine Ratio 9.9 (10-20) Calcium Level 9.1 mg/dl (8.5-10.1) Magnesium Level 2.1 mg/dl (1.8-2.4) Total Bilirubin 0.5 mg/dl (0.2-1) Aspartate Amino Transf (AST/SGOT) 37 U/L (15-37) Alanine Aminotransferase (ALT/SGPT) 46 U/L (12-78) Alkaline Phosphatase 114 U/L (45-117) Total Protein 7.7 gm/dl (6.4-8.2) Albumin 3.4 gm/dl (3.4-5.0) Globulin 4.3 gm/dl (2.5-4.0) Albumin/Globulin Ratio 0.8 (0.9-2) Imaging CT head- : The paranasal sinuses and mastoid air cells are clear. The calvarium and skull base are intact. There is no mass, hematoma, midline shift, acute infarct. White matter hypodensity is nonspecific but suggestive of microvascular ischemic change. The ventricles and sulci demonstrate mild age- related involutional changes. Old lacunar infarct within the left basal ganglia , unchanged. Impression 52 year old, older than stated age with gait difficulties, s/p fall Plan 1. PT/OT for discharge needs 2. rehab if needed- states he has been to [facility] previously 3. fall precautions - nursing states he is impulsive 4. MRI on previous visit in May. There is no mass, hematoma, midline shift , acute infarct. A few punctate foci of T2 hyperintensity seen within the periventricular white matter. These are nonspecific but favor minimal microvascular ischemic change. Old lacunar infarct within the left basal ganglia. Prominence of the ventricles and central volume loss. The orbits are unremarkable. Paranasal sinuses and mastoid air cells are clear. The major vascular flow voids at the skull base are well-maintained. 5. need for EtOH cessation 6. should use walker at all times at home for stability 7. peripheral neuropathy is likely contributing to the falls- EMG could be done as an outpatient to evaluate 8. RPR and thiamine levels ordered I have seen and discussed above patient with Dr Roxana Thomas, neurology Pt seen and examined. MRI from prior admission (cerebral and cerebellar atrophy ) reviewed as well at CT head from this admission and labs (hyponatremia). Pt denies weakness, sensory changes or B/B incontinence or headache. Wt stable. No hx of CA, no hx of anticonvulsant use.Chronic ETOH intake. Exam notable for nml CN. Motor nearly full, areflexic at ankles, query distal sensory loss. Tremor on intention, No overt dystaxia on heel to mckinnon. Gait wide-based and unsteadly, impulsive, neg Romberg. 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 Will follow with you. GISELE Thomas MD
--- NOTE | 2017-08-21 20:39 | Progress Note ---
Medicine Progress Note Date & Time of Visit: Aug 21, 2017 at 15:10 . Subjective CC: Follow-up visit for alcohol withdrawal and other problems. HPI: No new problems. Tremor improved. Gait still unsteady. No hallucinations. No chest pain. No cough or SOB. No nausea or vomiting. No urinary symptoms. No fever. ROS: as noted above in HPI . Objective Last 8 Hrs Date Time Temp Pulse Resp B/P (MAP) Pulse Ox O2 Delivery O2 Flow Rate FiO2 08/21/17 20:00 98 Room Air 08/21/17 19:46 37.6 76 20 135/86 (102) 98 Room Air 08/21/17 16:02 36.7 78 18 169/93 (118) 99 Room Air 08/21/17 16:00 99 Room Air Physical Exam: General- lying in bed; no distress Eyes- anicteric ENT- hard of hearing Lungs- clear to auscultation; no respiratory distress Cardiovascular- RRR; no gallop; no JVD; no pretibial edema Abdomen- + bowel sounds, soft, nontender Extremities- no cyanosis; no calf tenderness Neuro- alert, PERRL, no nystagmus, no apparent hallucinations; mild resting tremor Skin- warm & dry . Laboratory Results: Last 24 Hours Test 08/21/17 00:00 08/21/17 07:29 08/21/17 17:30 Urine Osmolality 377 mOms/kg White Blood Count 8.47 K/uL Red Blood Count 4.15 M/uL Hemoglobin 13.8 g/dL Hematocrit 38.1 % Mean Corpuscular Volume 91.8 fL Mean Corpuscular Hemoglobin 33.3 pg Mean Corpuscular Hemoglobin Concent 36.2 g/dl RDW Standard Deviation 53.9 fL RDW Coefficient of Variation 16.1 % Platelet Count 343 K/uL Mean Platelet Volume 8.6 fL Sodium Level 124 mmol/L Potassium Level 4.0 mmol/L Chloride Level 91 mmol/L Carbon Dioxide Level 24 mmol/L Anion Gap 9.0 mmol/L Blood Urea Nitrogen 5 mg/dl Creatinine 0.53 mg/dl Est Creatinine Clear Calc Drug Dose 143.4 ml/min Estimated GFR () 140.0 Estimated GFR (Non- 120.8 BUN/Creatinine Ratio 9.9 Random Glucose 85 mg/dl Calcium Level 9.1 mg/dl Magnesium Level 2.1 mg/dl Total Bilirubin 0.5 mg/dl Aspartate Amino Transf (AST/SGOT) 37 U/L Alanine Aminotransferase (ALT/SGPT) 46 U/L Alkaline Phosphatase 114 U/L Total Protein 7.7 gm/dl Albumin 3.4 gm/dl Globulin 4.3 gm/dl Albumin/Globulin Ratio 0.8 Assessment & Plan ALCOHOL ABUSE / ALCOHOL WITHDRAWAL Last alcohol consumption probably 08/13. Blood alcohol level in ED 121 md/dl. AWSS monitored; received gabapentin and PRN lorazepam per protocol. Continue thiamine, folate, MVI, etc. Counseling / rehab will be recommended when patient is able to participate in discussion. ELEVATED BP'S Probably secondary to alcohol withdrawal. Hydralazine ordered PRN. Added metoprolol. BP's improved. ARRHYTHMIAS Short runs of narrow complex tachycardia. 1 run of ? wide complex tachycardia- may have been artifact. Management of electrolytes as discussed below. Started metoprolol. HYPONATREMIA Serum Na as low as 124. Electrolyte abnormalities probably due to inadequate intake due to alcohol consumption. Received IV NSS. Sodium today = 124. 1500 ml fluid restriction. Follow. HYPOKALEMIA Serum K as low as 3.2. Electrolyte abnormalities probably due to inadequate intake due to alcohol consumption. Receiving IV replacement. K today = 4.0. Follow. HYPOMAGNESEMIA Serum Mg as low as 1.5. Electrolyte abnormalities probably due to inadequate intake due to alcohol consumption. Received IV replacement. Mg today = 2.1. Follow. THROMBOCYTOPENIA Platelet count as low as 73,000. No active bleeding. Thrombocytopenia may be secondary to alcohol abuse, even in absence of overt cirrhosis / portal hypertension. Hematology consulted. Platelet count today = 343,000. AMBULATORY DYSFUNCTION Ataxic gait with frequent falls for at least past few months. Consider cerebellar degeneration. MRI brain 06/13/17 showed old lacunar infarct left basal ganglia, ventricular prominence, minimal microvascular ischemic changes. Consult Neuro. PT / OT. VTE PROPHYLAXIS No anticoagulants due to thrombocytopenia + alcohol abuse. SCD's. Ambulate as able. DISPOSITION To be determined. May need skilled care or rehab. . Current Inpatient Medications: Current Inpatient Medications Medications (Trade) Dose Ordered Sig/Jaylene Route Start Time Stop Time Status Last Admin Dose Admin Ondansetron HCl (Zofran Inj) 4 mg Q6H PRN IV 08/14/17 01:30 2/28/18 01:29 Folic Acid 1 mg/ Syringe 10 ml @ 5 mls/min QAM IV 08/14/17 09:00 09/13/17 08:59 08/21/17 07:32 5 MLS/MIN Thiamine HCl 100 mg/Syringe 10 ml @ 2 mls/min Q24H IV 08/15/17 04:00 09/14/17 03:59 08/21/17 04:29 2 MLS/MIN Hydralazine HCl (Apresoline Tab) 10 mg Q6H PRN PO 08/14/17 14:30 09/13/17 14:29 08/21/17 07:38 10 MG Acetaminophen (Tylenol Tab) 1,000 mg Q8H PRN PO 08/14/17 20:15 09/13/17 20:14 08/21/17 07:51 1,000 MG Lorazepam (Ativan Tab) PRN Dosing -Active Protocol UD PRN PO 08/17/17 14:15 09/16/17 14:14 08/17/17 14:40 1 MG Lorazepam (Ativan Inj) PRN Dosing -Active Protocol Q1H PRN IV 08/17/17 14:45 09/13/17 01:44 08/17/17 16:57 1.5 MG Lorazepam 1 mg/ Syringe 1 ml @ 1 mls/min Q1H PRN IV 08/17/17 15:00 09/16/17 14:59 08/18/17 01:28 1 MLS/MIN Magnesium Sulfate 1 gm/Potassium Chloride 20 meq/ Sodium Chloride 1,012 ml @ 75 mls/hr [id number] IV 08/19/17 05:00 09/18/17 04:59 08/21/17 11:00 75 MLS/HR Metoprolol Tartrate (Lopressor Tab) 25 mg BID PO 08/19/17 09:00 09/18/17 08:59 08/21/17 07:32 25 MG
[2017-08-22] VITALS (10 sets, daily range): BP systolic 133–165; BP diastolic 79–90; PULSE 60–75; TEMP 37–37.3; O2SAT 94–97
[2017-08-22] MEDS: THIAMINE HCL INJ 100 MG in SYRINGE 9 ML IV SCH (04:26)
[2017-08-22] MEDS: MAG SULFATE IV SCH (04:26)
[2017-08-22] MEDS: POTASSIUM CHLORIDE IV SCH (04:26)
[2017-08-22] MEDS: [UNRECOGNIZED DRUG - OTHER] IV SCH (04:26)
[2017-08-22 07:33] LABS: CALCIUM 8.4 mg/dl (8.5-10.1); CREATININE 0.52 mg/dl (0.60-1.40)
[2017-08-22] MEDS: FoLIC ACID INJ 1 MG in SYRINGE 9.8 ML IV SCH (09:49)
[2017-08-22] MEDS: METOPROLOL TARTRATE 25 MG TAB PO SCH ×2 (09:49→20:23)
--- NOTE | 2017-08-22 15:55 | Neurology Progress Notes ---
Neurology Progress Note Date of Service Aug 22, 2017. Thuy Walker is a 52 year old male with PMH HTN, old CVA, past tobacco abuse, EtoH abuse, chronic anemia, tremor. Apparently he was brought to the ED because of weakness in both legs. he states he usually walks around in his apartment using furniture to hold onto instead of using his walker. He states he was a heavy beer drinker at least 6 per day but hasn't had anything to drink for a month. His blood EtoH level on admission was 120.8. PT is in the room walking him with a walker and he is doing well. Walking down the turner. She reports this is much better than yesterday. He was seen in May by Dr Ji neurology and an MRI was done at that time that showed cerebral atrophy. d Today he states he is very tired because he stayed up to watch a movie. He is eating alot of potato chips to try to increase his sodium. denies CP, SOB, abdominal pain, weakness, numbness tingling, N, V, +hip and knee pain (s/p hip fracture and surgery 02/2017). Objective Date Time Temp Pulse Resp B/P (MAP) Pulse Ox O2 Delivery O2 Flow Rate FiO2 08/22/17 14:56 37.1 60 18 137/81 (99) 97 Room Air 08/22/17 11:17 37.1 70 20 136/79 (98) 94 Room Air 08/22/17 08:00 95 Room Air 08/22/17 07:18 37.2 72 18 133/82 (99) 95 Room Air 08/22/17 04:00 159/87 (111) 08/22/17 04:00 Room Air 08/22/17 01:31 165/90 (115) 08/22/17 00:00 Room Air 08/21/17 23:59 36.7 68 18 183/95 (124) 100 Room Air 08/21/17 21:41 37.0 08/21/17 20:00 98 Room Air 08/21/17 19:46 37.6 76 20 135/86 (102) 98 Room Air 08/21/17 16:02 36.7 78 18 169/93 (118) 99 Room Air 08/21/17 16:00 99 Room Air Last 24 Hours Test 08/21/17 17:30 08/22/17 06:36 Rapid Plasma Reagin NONREACTIVE Sodium Level 125 mmol/L Potassium Level 4.0 mmol/L Chloride Level 92 mmol/L Carbon Dioxide Level 24 mmol/L Anion Gap 9.0 mmol/L Blood Urea Nitrogen 8 mg/dl Creatinine 0.52 mg/dl Est Creatinine Clear Calc Drug Dose 144.3 ml/min Estimated GFR () 141.1 Estimated GFR (Non- 121.7 BUN/Creatinine Ratio 14.9 Random Glucose 88 mg/dl Calcium Level 8.4 mg/dl Magnesium Level 2.0 mg/dl Imaging: no new imaging Exam: Physical Exam: Constitutional: appearance older than stated age Ears, Nose, Mouth and Throat: mucous membranes moist, no injection and skin normal, eyes normal Cardiovascular: normal S-1 and S-2 and regular rate and rhythm Respiratory: clear to auscultation (CTA) and no rales, rhonchi or wheeze Musculoskeletal: no peripheral edema Skin: no stigmata of neurocutaneous disease noted and normal and intact Eyes: extraocular muscles intact (EOMI) and pupils equal, round and reactive to light (PERRL) NEUROLOGIC EXAMINATION: Mental status: Alert and interactive Oriented [facility], 2018 Oriented to person Speech fluent with no evidence of aphasia Cranial Nerves smile eye brow raise symmetric Coordination: finger to nose no bi pass, mild essential tremor Gait/Stance: Posture lying in bed Motor: Negative for pronator drift of out stretched arms with eyes closed. 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, hip flex plantar flex ext 5/5 Current Inpatient Medications Medications (Trade) Dose Ordered Sig/Jaylene Route Start Time Stop Time Status Last Admin Dose Admin Ondansetron HCl (Zofran Inj) 4 mg Q6H PRN IV 08/14/17 01:30 09/13/17 01:29 Folic Acid 1 mg/ Syringe 10 ml @ 5 mls/min QAM IV 08/14/17 09:00 09/13/17 08:59 08/22/17 09:49 5 MLS/MIN Thiamine HCl 100 mg/Syringe 10 ml @ 2 mls/min Q24H IV 08/15/17 04:00 09/14/17 03:59 08/22/17 04:26 2 MLS/MIN Hydralazine HCl (Apresoline Tab) 10 mg Q6H PRN PO 08/14/17 14:30 09/13/17 14:29 08/21/17 07:38 10 MG Acetaminophen (Tylenol Tab) 1,000 mg Q8H PRN PO 08/14/17 20:15 09/13/17 20:14 08/21/17 20:16 1,000 MG Lorazepam (Ativan Tab) PRN Dosing -Active Protocol UD PRN PO 08/17/17 14:15 09/16/17 14:14 08/17/17 14:40 1 MG Lorazepam (Ativan Inj) PRN Dosing -Active Protocol Q1H PRN IV 08/17/17 14:45 09/13/17 01:44 08/17/17 16:57 1.5 MG Lorazepam 1 mg/ Syringe 1 ml @ 1 mls/min Q1H PRN IV 08/17/17 15:00 09/16/17 14:59 08/18/17 01:28 1 MLS/MIN Metoprolol Tartrate (Lopressor Tab) 25 mg BID PO 08/19/17 09:00 09/18/17 08:59 08/22/17 09:49 25 MG Impression 52 year old, older than stated age with gait difficulties, s/p fall Plan 1. PT/OT for discharge needs 2. rehab if needed- states he has been to [facility] will not take him 3. fall precautions - nursing states he is impulsive 4. MRI on previous visit in May. There is no mass, hematoma, midline shift , acute infarct. A few punctate foci of T2 hyperintensity seen within the periventricular white matter. These are nonspecific but favor minimal microvascular ischemic change. Old lacunar infarct within the left basal ganglia. Prominence of the ventricles and central volume loss. The orbits are unremarkable. Paranasal sinuses and mastoid air cells are clear. The major vascular flow voids at the skull base are well-maintained. 5. need for EtOH cessation 6. should use walker at all times at home for stability 7. peripheral neuropathy is likely contributing to the falls- EMG could be done as an outpatient to evaluate 8. RPR and thiamine levels ordered- pending schedule once out of rehab with Dr Roxana Thomas neurology for EMG 40 min. bilateral LE I have seen and discussed above patient with Dr Roxana Thomas, neurology Pt seen and examined, gait remains wide-based with pos Romberg. Suspect gait dysfunction is related to neuropathy, most likely ETOH related and some cerebellar ataxia related to chronic etoh use. Pt will need NCV with me as outpt. GISELE Thomas MD
[2017-08-22] MEDS: ACETAMINOPHEN 500 MG TAB PO PRN (20:26)
--- NOTE | 2017-08-22 20:35 | Progress Note ---
Medicine Progress Note Date & Time of Visit: Aug 22, 2017 at 11:40 . Subjective CC: Follow-up visit for alcohol withdrawal and other problems. HPI: Displeased with fluid restriction. Tremor improved. No hallucinations. Gait still unsteady. No chest pain. No cough or SOB. No nausea or vomiting. No urinary symptoms. No fever or chills. ROS: as noted above in HPI . Objective Last 8 Hrs Date Time Temp Pulse Resp B/P (MAP) Pulse Ox O2 Delivery O2 Flow Rate FiO2 08/22/17 20:00 97 Room Air 08/22/17 19:21 37.3 75 16 146/81 (102) 97 Room Air 08/22/17 16:00 97 Room Air 08/22/17 14:56 37.1 60 18 137/81 (99) 97 Room Air Physical Exam: General- lying in bed; no distress Eyes- anicteric ENT- hard of hearing Lungs- clear to auscultation; no respiratory distress Cardiovascular- RRR; no gallop; no JVD; no pretibial edema Abdomen- + bowel sounds, soft, nontender Extremities- no cyanosis; no calf tenderness Neuro- alert, mild resting tremor Skin- warm & dry . Laboratory Results: Last 24 Hours Test 08/22/17 06:36 Sodium Level 125 mmol/L Potassium Level 4.0 mmol/L Chloride Level 92 mmol/L Carbon Dioxide Level 24 mmol/L Anion Gap 9.0 mmol/L Blood Urea Nitrogen 8 mg/dl Creatinine 0.52 mg/dl Est Creatinine Clear Calc Drug Dose 144.3 ml/min Estimated GFR () 141.1 Estimated GFR (Non- 121.7 BUN/Creatinine Ratio 14.9 Random Glucose 88 mg/dl Calcium Level 8.4 mg/dl Magnesium Level 2.0 mg/dl Assessment & Plan ALCOHOL ABUSE / ALCOHOL WITHDRAWAL Last alcohol consumption probably 08/13. Blood alcohol level in ED 121 md/dl. AWSS monitored; received gabapentin and PRN lorazepam per protocol. Continue thiamine, folate, MVI, etc. Counseling / rehab will be recommended when patient is able to participate in discussion. ELEVATED BP'S Probably secondary to alcohol withdrawal. Hydralazine ordered PRN. Added metoprolol. BP's improved. ARRHYTHMIAS Short runs of narrow complex tachycardia. 1 run of ? wide complex tachycardia- may have been artifact. Management of electrolytes as discussed below. Started metoprolol. HYPONATREMIA Serum Na as low as 124. Electrolyte abnormalities probably due to inadequate intake due to alcohol consumption. Received IV NSS. Sodium today = 125. Patient unhappy with 1500 ml fluid restriction; will liberalize to 2000 ml. Follow. HYPOKALEMIA Serum K as low as 3.2. Electrolyte abnormalities probably due to inadequate intake due to alcohol consumption. Receiving IV replacement. K today = 4.0. Follow. HYPOMAGNESEMIA Serum Mg as low as 1.5. Electrolyte abnormalities probably due to inadequate intake due to alcohol consumption. Received IV replacement. Mg today = 2.0. Follow. THROMBOCYTOPENIA Platelet count as low as 73,000. No active bleeding. Thrombocytopenia may be secondary to alcohol abuse, even in absence of overt cirrhosis / portal hypertension. Hematology consulted. Platelet count 08/21 = 343,000. AMBULATORY DYSFUNCTION Ataxic gait with frequent falls for at least past few months. Consider cerebellar degeneration. MRI brain 06/13/17 showed old lacunar infarct left basal ganglia, ventricular prominence, minimal microvascular ischemic changes. Neuro consulted. [place] to have neuropathy and cerebellar ataxia. Outpatient neuro follow-up and NCV recommended. PT / OT. VTE PROPHYLAXIS No anticoagulants due to thrombocytopenia + alcohol abuse. SCD's. Ambulate as able. DISPOSITION Ataxic gait. High fall risk. Patient requires supervision with walker. Anticipated need for skilled care or rehab. . Current Inpatient Medications: Current Inpatient Medications Medications (Trade) Dose Ordered Sig/Jaylene Route Start Time Stop Time Status Last Admin Dose Admin Ondansetron HCl (Zofran Inj) 4 mg Q6H PRN IV 08/14/17 01:30 09/13/17 01:29 Folic Acid 1 mg/ Syringe 10 ml @ 5 mls/min QAM IV 08/14/17 09:00 09/13/17 08:59 08/22/17 09:49 5 MLS/MIN Thiamine HCl 100 mg/Syringe 10 ml @ 2 mls/min Q24H IV 08/15/17 04:00 09/14/17 03:59 08/22/17 04:26 2 MLS/MIN Hydralazine HCl (Apresoline Tab) 10 mg Q6H PRN PO 08/14/17 14:30 09/13/17 14:29 08/21/17 07:38 10 MG Acetaminophen (Tylenol Tab) 1,000 mg Q8H PRN PO 08/14/17 20:15 09/13/17 20:14 08/22/17 20:26 1,000 MG Lorazepam (Ativan Tab) PRN Dosing -Active Protocol UD PRN PO 08/17/17 14:15 09/16/17 14:14 08/17/17 14:40 1 MG Lorazepam (Ativan Inj) PRN Dosing -Active Protocol Q1H PRN IV 08/17/17 14:45 09/13/17 01:44 08/17/17 16:57 1.5 MG Lorazepam 1 mg/ Syringe 1 ml @ 1 mls/min Q1H PRN IV 08/17/17 15:00 09/16/17 14:59 08/18/17 01:28 1 MLS/MIN Metoprolol Tartrate (Lopressor Tab) 25 mg BID PO 08/19/17 09:00 09/18/17 08:59 08/22/17 20:23 25 MG
[2017-08-23] VITALS (10 sets, daily range): BP systolic 127–157; BP diastolic 80–88; PULSE 65–104; TEMP 36.8–37.1; O2SAT 95–97
[2017-08-23] MEDS: THIAMINE HCL INJ 100 MG in SYRINGE 9 ML IV SCH (04:31)
[2017-08-23 06:48] LABS: HEMATOCRIT 36.7 % (42-52); MEAN CELL VOLUME 92.2 fL (80-100); MEAN CORPUSCULAR HEMOGLOBIN 32.7 pg (25-34); MEAN CORPUSCULAR HGB CONC 35.4 g/dl (32-36); MEAN PLATELET VOLUME 8.4 fL (7.4-10.4); PLATELET COUNT 413 K/uL (130-400); RED CELL DISTRIBUTION WIDTH CV 16.1 % (11.5-14.5); RED CELL DISTRIBUTION WIDTH SD 54.5 fL (36.4-46.3); WHITE BLOOD COUNT 9.43 K/uL (4.8-10.8)
[2017-08-23 07:21] LABS: CALCIUM 8.5 mg/dl (8.5-10.1); CREATININE 0.5 mg/dl (0.60-1.40); POTASSIUM 3.7 mmol/L (3.5-5.1)
[2017-08-23] MEDS: FoLIC ACID INJ 1 MG in SYRINGE 9.8 ML IV SCH (07:51)
[2017-08-23] MEDS: METOPROLOL TARTRATE 25 MG TAB PO SCH ×2 (07:53→20:40)
--- NOTE | 2017-08-23 20:46 | Progress Note ---
Medicine Progress Note Date & Time of Visit: Aug 23, 2017 at 11:30 . Subjective CC: Follow-up visit for alcohol withdrawal and other problems. HPI: Ongoing frustration with fluid restriction. Tremor improved. No hallucinations. Gait still unsteady, but better. Still needs supervision. No chest pain. No cough or SOB. No nausea or vomiting. No urinary symptoms. No fever or chills. ROS: as noted above in HPI . Objective Last 8 Hrs Date Time Temp Pulse Resp B/P (MAP) Pulse Ox O2 Delivery O2 Flow Rate FiO2 08/23/17 19:27 36.9 71 16 130/82 (98) 96 Room Air 08/23/17 16:00 96 Room Air 08/23/17 15:25 37.1 66 22 127/81 (96) 96 Room Air Physical Exam: General- lying in bed; no distress Eyes- anicteric ENT- hard of hearing Lungs- clear to auscultation; no respiratory distress Cardiovascular- RRR; no gallop; no JVD; no pretibial edema Abdomen- + bowel sounds, soft, nontender Extremities- no cyanosis; no calf tenderness Neuro- alert, mild resting tremor Skin- warm & dry . Laboratory Results: Last 24 Hours Test 08/23/17 06:18 White Blood Count 9.43 K/uL Red Blood Count 3.98 M/uL Hemoglobin 13.0 g/dL Hematocrit 36.7 % Mean Corpuscular Volume 92.2 fL Mean Corpuscular Hemoglobin 32.7 pg Mean Corpuscular Hemoglobin Concent 35.4 g/dl RDW Standard Deviation 54.5 fL RDW Coefficient of Variation 16.1 % Platelet Count 413 K/uL Mean Platelet Volume 8.4 fL Sodium Level 121 mmol/L Potassium Level 3.7 mmol/L Chloride Level 88 mmol/L Carbon Dioxide Level 25 mmol/L Anion Gap 8.0 mmol/L Blood Urea Nitrogen 9 mg/dl Creatinine 0.50 mg/dl Est Creatinine Clear Calc Drug Dose 149.8 ml/min Estimated GFR () 143.4 Estimated GFR (Non- 123.7 BUN/Creatinine Ratio 17.9 Random Glucose 82 mg/dl Calcium Level 8.5 mg/dl Assessment & Plan ALCOHOL ABUSE / ALCOHOL WITHDRAWAL Last alcohol consumption probably 08/13. Blood alcohol level in ED 121 md/dl. AWSS monitored; received gabapentin and PRN lorazepam per protocol. Continue thiamine, folate, MVI, etc. Counseling / rehab recommended. ELEVATED BP'S Probably secondary to alcohol withdrawal. Hydralazine ordered PRN. Added metoprolol. BP's improved. ARRHYTHMIAS Short runs of narrow complex tachycardia. 1 run of ? wide complex tachycardia- may have been artifact. Management of electrolytes as discussed below. Started metoprolol. HYPONATREMIA Serum Na low. Electrolyte abnormalities probably due to inadequate intake due to alcohol consumption. Received IV NSS. Sodium today = 121. Patient unhappy with 1500 ml fluid restriction; liberalized to 2000 ml. Add NaCl tablets. Follow. HYPOKALEMIA Serum K as low as 3.2. Electrolyte abnormalities probably due to inadequate intake due to alcohol consumption. Receiving IV replacement. K today = 3.7. Follow. HYPOMAGNESEMIA Serum Mg as low as 1.5. Electrolyte abnormalities probably due to inadequate intake due to alcohol consumption. Received IV replacement. Mg / was 2.0. Follow. THROMBOCYTOPENIA Platelet count as low as 73,000. No active bleeding. Thrombocytopenia may be secondary to alcohol abuse, even in absence of overt cirrhosis / portal hypertension. Hematology consulted. Platelet count 08/21 = 343,000. AMBULATORY DYSFUNCTION Ataxic gait with frequent falls for at least past few months. Consider cerebellar degeneration. MRI brain 06/13/17 showed old lacunar infarct left basal ganglia, ventricular prominence, minimal microvascular ischemic changes. Neuro consulted. [place] to have neuropathy and cerebellar ataxia. Outpatient neuro follow-up and NCV recommended. PT / OT. VTE PROPHYLAXIS No anticoagulants due to thrombocytopenia + alcohol abuse. SCD's. Ambulate as able. DISPOSITION Ataxic gait. High fall risk. Patient requires supervision with walker. Anticipated need for skilled care or rehab. . Current Inpatient Medications: Current Inpatient Medications Medications (Trade) Dose Ordered Sig/Jaylene Route Start Time Stop Time Status Last Admin Dose Admin Ondansetron HCl (Zofran Inj) 4 mg Q6H PRN IV 08/14/17 01:30 09/13/17 01:29 Folic Acid 1 mg/ Syringe 10 ml @ 5 mls/min QAM IV 08/14/17 09:00 09/13/17 08:59 08/23/17 07:51 5 MLS/MIN Thiamine HCl 100 mg/Syringe 10 ml @ 2 mls/min Q24H IV 08/15/17 04:00 09/14/17 03:59 08/23/17 04:31 2 MLS/MIN Hydralazine HCl (Apresoline Tab) 10 mg Q6H PRN PO 08/14/17 14:30 09/13/17 14:29 08/21/17 07:38 10 MG Acetaminophen (Tylenol Tab) 1,000 mg Q8H PRN PO 08/14/17 20:15 09/13/17 20:14 08/22/17 20:26 1,000 MG Lorazepam (Ativan Tab) PRN Dosing -Active Protocol UD PRN PO 08/17/17 14:15 09/16/17 14:14 08/17/17 14:40 1 MG Lorazepam (Ativan Inj) PRN Dosing -Active Protocol Q1H PRN IV 08/17/17 14:45 09/13/17 01:44 08/17/17 16:57 1.5 MG Lorazepam 1 mg/ Syringe 1 ml @ 1 mls/min Q1H PRN IV 08/17/17 15:00 09/16/17 14:59 08/18/17 01:28 1 MLS/MIN Metoprolol Tartrate (Lopressor Tab) 25 mg BID PO 08/19/17 09:00 09/18/17 08:59 08/23/17 20:40 25 MG
[2017-08-23] MEDS: SODIUM CHLORIDE 1 GM TAB PO SCH (21:34)
[2017-08-23] MEDS: ACETAMINOPHEN 500 MG TAB PO PRN (22:16)
[2017-08-24] VITALS (10 sets, daily range): BP systolic 121–149; BP diastolic 74–86; PULSE 67–79; TEMP 36.8–37.2; O2SAT 95–100
[2017-08-24] MEDS: THIAMINE HCL INJ 100 MG in SYRINGE 9 ML IV SCH (04:40)
[2017-08-24 07:48] LABS: CALCIUM 9.1 mg/dl (8.5-10.1); CREATININE 0.52 mg/dl (0.60-1.40)
[2017-08-24] MEDS: SODIUM CHLORIDE 1 GM TAB PO SCH ×2 (07:54→20:22)
[2017-08-24] MEDS: METOPROLOL TARTRATE 25 MG TAB PO SCH ×2 (07:54→20:21)
[2017-08-24] MEDS: FoLIC ACID INJ 1 MG in SYRINGE 9.8 ML IV SCH (07:54)
--- NOTE | 2017-08-24 19:41 | Progress Note ---
Medicine Progress Note Date & Time of Visit: Aug 24, 2017 at 16:00 . Subjective CC: Follow-up visit for alcohol withdrawal and other problems. HPI: Very unhappy with fluid restriction. Tremor improved. No hallucinations. Gait improved. Having problems with dysphagia to pills and solids (recurrent problem, has required esophageal dilatations for esophageal strictures). No chest pain. No cough or SOB. No nausea or vomiting. No urinary symptoms. No fever or chills. ROS: as noted above in HPI . Objective Last 8 Hrs Date Time Temp Pulse Resp B/P (MAP) Pulse Ox O2 Delivery O2 Flow Rate FiO2 08/24/17 19:28 36.9 79 18 143/86 (105) 99 Room Air 08/24/17 16:00 97 Room Air 08/24/17 14:59 37.1 68 18 137/78 (97) 97 Room Air 08/24/17 12:00 95 Room Air Physical Exam: General- lying in bed; no distress Eyes- anicteric ENT- hard of hearing Lungs- clear to auscultation; no respiratory distress Cardiovascular- RRR; no gallop; no JVD; no pretibial edema Abdomen- + bowel sounds, soft, nontender Extremities- no cyanosis; no calf tenderness Neuro- alert, mild resting tremor Skin- warm & dry . Laboratory Results: Last 24 Hours Test 08/24/17 06:27 Sodium Level 125 mmol/L Potassium Level 4.0 mmol/L Chloride Level 91 mmol/L Carbon Dioxide Level 24 mmol/L Anion Gap 11.0 mmol/L Blood Urea Nitrogen 10 mg/dl Creatinine 0.52 mg/dl Est Creatinine Clear Calc Drug Dose 144.5 ml/min Estimated GFR () 141.1 Estimated GFR (Non- 121.7 BUN/Creatinine Ratio 19.0 Random Glucose 82 mg/dl Calcium Level 9.1 mg/dl Magnesium Level 2.0 mg/dl Assessment & Plan ALCOHOL ABUSE / ALCOHOL WITHDRAWAL Last alcohol consumption probably 08/13. Blood alcohol level in ED 121 md/dl. AWSS monitored; received gabapentin and PRN lorazepam per protocol. Continue thiamine, folate, MVI, etc. Counseling / rehab recommended. ELEVATED BP'S Probably secondary to alcohol withdrawal. Hydralazine ordered PRN. Added metoprolol. BP's improved. HYPONATREMIA Serum Na low. Electrolyte abnormalities probably due to inadequate intake due to alcohol consumption and probable SIADH. Tried fluid restriction, but patient unwilling to restrict fluids despite repeated attempts to explain. NaCl tablets. Follow. HYPOKALEMIA Serum K as low as 3.2. Electrolyte abnormalities probably due to inadequate intake due to alcohol consumption. Receiving IV replacement. K today = 4.0. Follow. HYPOMAGNESEMIA Serum Mg as low as 1.5. Electrolyte abnormalities probably due to inadequate intake due to alcohol consumption. Received IV replacement. Mg 08/22 was 2.0. Follow. THROMBOCYTOPENIA Platelet count as low as 73,000. No active bleeding. Thrombocytopenia may be secondary to alcohol abuse, even in absence of overt cirrhosis / portal hypertension. Hematology consulted. Platelet count 08/23 = 413,000. AMBULATORY DYSFUNCTION Ataxic gait with frequent falls for at least past few months. Consider cerebellar degeneration. MRI brain 06/13/17 showed old lacunar infarct left basal ganglia, ventricular prominence, minimal microvascular ischemic changes. Neuro consulted. 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 Outpatient neuro follow-up and NCV recommended. Continue PT / OT. DYSPHAGIA Having problems with dysphagia to pills and solids. Recurrent problem, has required esophageal dilatations for esophageal strictures (last procedure 05/22/18). May need repeat dilatation. Consult GI. VTE PROPHYLAXIS No anticoagulants due to thrombocytopenia + alcohol abuse. SCD's. Ambulate as able. DISPOSITION Ataxic gait. High fall risk. Patient requires supervision with walker. Anticipated need for skilled care or rehab. Case Management consulted. . Current Inpatient Medications: Current Inpatient Medications Medications (Trade) Dose Ordered Sig/Jaylene Route Start Time Stop Time Status Last Admin Dose Admin Ondansetron HCl (Zofran Inj) 4 mg Q6H PRN IV 08/14/17 01:30 09/13/17 01:29 Folic Acid 1 mg/ Syringe 10 ml @ 5 mls/min QAM IV 08/14/17 09:00 09/13/17 08:59 08/24/17 07:54 5 MLS/MIN Thiamine HCl 100 mg/Syringe 10 ml @ 2 mls/min Q24H IV 08/15/17 04:00 09/14/17 03:59 08/24/17 04:40 2 MLS/MIN Hydralazine HCl (Apresoline Tab) 10 mg Q6H PRN PO 08/14/17 14:30 09/13/17 14:29 08/21/17 07:38 10 MG Acetaminophen (Tylenol Tab) 1,000 mg Q8H PRN PO 08/14/17 20:15 09/13/17 20:14 08/23/17 22:16 1,000 MG Lorazepam (Ativan Tab) PRN Dosing -Active Protocol UD PRN PO 08/17/17 14:15 09/16/17 14:14 08/17/17 14:40 1 MG Lorazepam (Ativan Inj) PRN Dosing -Active Protocol Q1H PRN IV 08/17/17 14:45 09/13/17 01:44 08/17/17 16:57 1.5 MG Lorazepam 1 mg/ Syringe 1 ml @ 1 mls/min Q1H PRN IV 08/17/17 15:00 09/16/17 14:59 08/18/17 01:28 1 MLS/MIN Metoprolol Tartrate (Lopressor Tab) 25 mg BID PO 08/19/17 09:00 09/18/17 08:59 08/24/17 07:54 25 MG Sodium Chloride (Sodium Chloride Tab) 1 gm BID PO 08/23/17 21:00 09/22/17 20:59 08/24/17 07:54 1 GM
[2017-08-24] MEDS: ACETAMINOPHEN 500 MG TAB PO PRN (20:22)
[2017-08-25 03:15] VITALS: BP 132/86; PULSE 67; TEMP 36.7; O2SAT 97
[2017-08-25] MEDS: THIAMINE HCL INJ 100 MG in SYRINGE 9 ML IV SCH (03:43)
[2017-08-25 07:16] LABS: CALCIUM 8.7 mg/dl (8.5-10.1); CREATININE 0.5 mg/dl (0.60-1.40)
[2017-08-25] MEDS: FoLIC ACID INJ 1 MG in SYRINGE 9.8 ML IV SCH (07:56)
[2017-08-25 08:03] VITALS: BP 148/89; PULSE 72; TEMP 36.9; O2SAT 98
[2017-08-25] MEDS: METOPROLOL TARTRATE 25 MG TAB PO SCH ×2 (11:16→19:27)
[2017-08-25] MEDS: SODIUM CHLORIDE 1 GM TAB PO SCH ×2 (11:16→19:27)
[2017-08-25 12:22] VITALS: BP 150/92; PULSE 70; TEMP 36.3; O2SAT 99
[2017-08-25 13:00] VITALS: BP 134/78; PULSE 61; TEMP 36.3; O2SAT 98
--- NOTE | 2017-08-25 13:19 | Gastrointestinal Consultation ---
Gastrointestinal Consultation Date of Consultation: Aug 25, 2017 Attending Physician: David Bingham Consulting Physician: Lawrence Peck Reason for Consultation: Dysphagia, hx of esophageal stricture History of Present Illness Patient is a 52 year old male currently admitted for ETOH intoxication, and withdrawals is seen for dysphagia. He had hx of esophageal stricture & stenosis s/p EGD evaluation and dilation (4x between March 2017 to May 2017). Bx consistent with reflux esophagitis, emilee and lymphocytic esophagitis. He was supposed to be on Diflucan, PPI, inhaled steroids but he never take any meds at home. He also continues to drink ETOH, level on admission was 120. Pt reports that he had been eating fine at home, denies any food bolus or chocking. He eats solid meals just fine. Though having some trouble swallowing pills whole while here at hospital. He had been requesting RN to crush them. He denies any odynophagia, n/v, or changes in BM habits. He is unsure if he wants a repeat EGD w dilation as he said they didn't help much in the past. Past Medical/Surgical History Medical Problems: (1) Abnormal ECG Status: Acute (2) Alcohol dependence Status: Acute (3) Alcohol intoxication Status: Acute (4) Anemia Status: Acute (5) Ataxia Status: Acute (6) Ataxia Status: Acute (7) Closed left clavicular fracture Status: Acute (8) Elbow fracture, left Status: Acute (9) Fall as cause of accidental injury in residential institution as place of occurrence Status: Acute (10) Generalized weakness Status: Acute (11) Hip pain, right Status: Acute (12) Homeless Status: Acute (13) Hypokalemia Status: Acute (14) Hypophosphatemia Status: Acute (15) Hypotension Status: Acute (16) Intertrochanteric fracture of right hip Status: Acute (17) Malnutrition Status: Acute (18) Pneumonia Status: Acute Past Medical History: PAST MEDICAL HISTORY: Significant for alcoholism with history of abnormality of gait in the past, hypertension, esophageal stenosis, chronic anemia and also chronic tremor. Past Surgical History: PAST SURGICAL HISTORY: He has had 3 pins placed in the right hip, but no other significant past medical history and also, he had a hernia repair. Family History FHx: cancer Social History Smoking Status: Former Smoker Alcohol Use: heavy Drug Use: none Marital Status: single Housing Status: other Occupation Status: unemployed Allergies Coded Allergies: Penicillins (Verified Adverse Reaction, Mild, TIRED, 08/13/17) Current Medications Home Meds and Scripts Medications Dose Route/Sig Max Daily Dose Days Date Category No Active Prescriptions or Reported Medications Rx Review of Systems Constitutional: No fever, No chills ENT: + see HPI, + trouble swallowing, No sore throat, No pain on swallowing Respiratory: No cough Abdomen: No pain, No nausea, No vomiting Physical Exam Date Time Temp Pulse Resp B/P (MAP) Pulse Ox O2 Delivery O2 Flow Rate FiO2 08/25/17 12:22 36.3 70 18 150/92 (111) 99 Room Air 08/25/17 12:00 Room Air 08/25/17 08:03 36.9 72 18 148/89 (108) 98 Room Air 08/25/17 08:00 Room Air 08/25/17 04:00 Room Air 08/25/17 03:15 36.7 67 18 132/86 (101) 97 Room Air 08/25/17 00:00 Room Air 08/24/17 23:01 37.0 70 20 149/84 (105) 100 Room Air 08/24/17 20:00 99 Room Air 08/24/17 19:28 36.9 79 18 143/86 (105) 99 Room Air 08/24/17 16:00 97 Room Air 08/24/17 14:59 37.1 68 18 137/78 (97) 97 Room Air General Appearance: WD/WN, no apparent distress Eyes: normal inspection, PERRL, EOMI Neck: supple, no JVD, trachea midline Respiratory/Chest: normal breath sounds, no respiratory distress, no accessory muscle use Cardiovascular: regular rate, rhythm, no gallop, no murmur Abdomen: normal bowel sounds, non tender, soft Extremities: normal inspection, no pedal edema, no calf tenderness Neurologic/Psych: alert, normal mood/affect, oriented x 3, + pertinent finding (very hard of hearing) Skin: normal color, no jaundice, no rash Laboratory Results Last 24 Hours Test 08/25/17 06:46 Sodium Level 125 mmol/L Potassium Level 4.0 mmol/L Chloride Level 91 mmol/L Carbon Dioxide Level 25 mmol/L Anion Gap 9.0 mmol/L Blood Urea Nitrogen 9 mg/dl Creatinine 0.50 mg/dl Est Creatinine Clear Calc Drug Dose 150.8 ml/min Estimated GFR () 143.4 Estimated GFR (Non- 123.7 BUN/Creatinine Ratio 17.9 Random Glucose 87 mg/dl Calcium Level 8.7 mg/dl Impression Patient is a 52 year old male seen for dysphagia, hx of esophageal stricture and stenosis. Had series of EGD w dilation last Fall, last one done in May. He had bx findings fo emilee, lymphocytic esophagitis, reflux esophagitis. Not on meds at home and continues to drink ETOH. Plan - Offered repeat EGD w possible dilation this afternoon but pt said he doesn't think it'll help. He also claims he's swallowing fine except wants pills crushed. Otherwise been eating/swallowing w/o problems per his report. He wants to eat now, wasn't happy about being NPO. I offered then to schedule him appt for outpt EGD eval next week after he's DC'd. He said he'll prefer this than having the EGD this afternoon. - Ok to advance diet to soft foods - Crush meds when appropriate - Protonix 40mg BID - ETOH cessation recommended.
[2017-08-25 15:35] VITALS: BP 118/77; PULSE 67; TEMP 37.7; O2SAT 95
--- NOTE | 2017-08-25 18:29 | Progress Note ---
Internal Med Progress Note Date of Service: Aug 25, 2017. Provider Documentation: SUBJECTIVE: resting comfortably no shaking says eating fine ambulating ok no sob or chest pain afebrile no nausea want to go home but agrees to go to [facility] if bed available on Monday OBJECTIVE: Vital Signs-as noted below Exam: General-alert and oriented. Not in distress ENT-Normal hearing Neck-no neck masses Lungs-cta b/l no wheezing or crackles Heart-S 1 and S 2heard regular rate and rhythm no murmurs Abdomen-soft bowel sounds present non tender no distension Extremities-no edema no erythema Neuro-alert and awake moves extremities Lab data as noted below. ASSESSMENT & PLAN: ALCOHOL ABUSE / ALCOHOL WITHDRAWAL Blood alcohol level on presentation 121 md/dl. was on gabapentin and PRN lorazepam per protocol. currently stable Continue thiamine, folate, MVI, etc. Counseling / rehab recommended. ELEVATED BP'S Mostly likely secondary to alcohol withdrawal. On Hydralazine PRN. Later metoprolol was added currently stable will continue to monitor HYPONATREMIA Serum Na low. possibly due to alcohol consumption and probable SIADH. patient does not want fluid restriction currently on NaCl tablets. Na 125 today will f/u abs HYPOKALEMIA was replaced K today = 4.0. will f/u labs HYPOMAGNESEMIA Serum Mg as low as 1.5. Most likely secondary to inadequate intake due to alcohol consumption. replaced THROMBOCYTOPENIA Platelet count as low as 73,000. No active bleeding. Thrombocytopenia may be secondary to bone marrow suppression from acte alcoholism Hematology consulted. resolved to f/u with heme/onco AMBULATORY DYSFUNCTION Has Ataxic gait with frequent falls recently. MRI brain 06/13/17 - old lacunar infarct left basal ganglia, ventricular prominence, minimal microvascular ischemic changes. Neuro consulted- secondary to neuropathy and cerebellar ataxia. Outpatient neuro follow-up and EMG Continue PT / OT. DYSPHAGIA Having problems with dysphagia to pills and solids. Recurrent problem, has required esophageal dilatations for esophageal strictures (last procedure 05/22/18). refused EGD today and wants it vto be done as out patient VTE PROPHYLAXIS No anticoagulants due to thrombocytopenia SCD's. Ambulate as able. DISPOSITION Ataxic gait. High fall risk. await placement Case Management consulted. Vital Signs: Date Time Temp Pulse Resp B/P (MAP) Pulse Ox O2 Delivery O2 Flow Rate FiO2 08/25/17 16:00 Room Air 08/25/17 15:35 37.7 67 20 118/77 (91) 95 Room Air 08/25/17 13:15 Room Air 08/25/17 13:00 36.3 61 20 134/78 (96) 98 Room Air 08/25/17 12:22 36.3 70 18 150/92 (111) 99 Room Air 08/25/17 12:00 Room Air 08/25/17 08:03 36.9 72 18 148/89 (108) 98 Room Air 08/25/17 08:00 Room Air 08/25/17 04:00 Room Air 08/25/17 03:15 36.7 67 18 132/86 (101) 97 Room Air 08/25/17 00:00 Room Air 08/24/17 23:01 37.0 70 20 149/84 (105) 100 Room Air 08/24/17 20:00 99 Room Air 08/24/17 19:28 36.9 79 18 143/86 (105) 99 Room Air Lab Results: Results Past 24 Hours Test 08/25/17 06:46 Range/Units Sodium Level 125 136-145 mmol/L Potassium Level 4.0 3.5-5.1 mmol/L Chloride Level 91 98-107 mmol/L Carbon Dioxide Level 25 21-32 mmol/L Anion Gap 9.0 3-11 mmol/L Blood Urea Nitrogen 9 7-18 mg/dl Creatinine 0.50 0.60-1.40 mg/dl Est Creatinine Clear Calc Drug Dose 150.8 ml/min Estimated GFR () 143.4 Estimated GFR (Non- 123.7 BUN/Creatinine Ratio 17.9 10-20 Random Glucose 87 70-99 mg/dl Calcium Level 8.7 8.5-10.1 mg/dl
[2017-08-25] MEDS: PANTOprazole INJ 40 MG in SYRINGE 0 ML IV SCH (19:27)
[2017-08-25] MEDS: ACETAMINOPHEN 500 MG TAB PO PRN (19:32)
[2017-08-25] MEDS ORDERED: PANTOprazole SOD 40 MG TAB PO SCH (21:00)
[2017-08-25 23:15] VITALS: BP_SYST 158; BP_SYST 162; BP_DIAS 84; BP_DIAS 85; PULSE 69; TEMP 36.7; O2SAT 99
[2017-08-26] MEDS: THIAMINE HCL INJ 100 MG in SYRINGE 9 ML IV SCH (04:30)
[2017-08-26 05:55] LABS: HEMOGLOBIN 11.9 g/dL (14.0-18.0); MEAN CELL VOLUME 92.2 fL (80-100); MEAN CORPUSCULAR HEMOGLOBIN 33.2 pg (25-34); MEAN CORPUSCULAR HGB CONC 36.1 g/dl (32-36); MEAN PLATELET VOLUME 8.2 fL (7.4-10.4); PLATELET COUNT 540 K/uL (130-400); RED CELL DISTRIBUTION WIDTH CV 15.8 % (11.5-14.5); RED CELL DISTRIBUTION WIDTH SD 53.4 fL (36.4-46.3); WHITE BLOOD COUNT 10.57 K/uL (4.8-10.8)
[2017-08-26 06:29] LABS: CALCIUM 8.7 mg/dl (8.5-10.1); CREATININE 0.52 mg/dl (0.60-1.40); POTASSIUM 3.8 mmol/L (3.5-5.1)
[2017-08-26 07:08] VITALS: BP 131/79; PULSE 64; TEMP 37; O2SAT 96
[2017-08-26] MEDS: SODIUM CHLORIDE 1 GM TAB PO SCH ×2 (08:03→19:49)
[2017-08-26] MEDS: METOPROLOL TARTRATE 25 MG TAB PO SCH ×2 (08:03→19:48)
[2017-08-26] MEDS: PANTOprazole INJ 40 MG in SYRINGE 0 ML IV SCH (08:04)
[2017-08-26] MEDS: FoLIC ACID INJ 1 MG in SYRINGE 9.8 ML IV SCH (08:04)
[2017-08-26 15:07] VITALS: BP 148/77; PULSE 76; TEMP 37.3; O2SAT 95
--- NOTE | 2017-08-26 18:51 | Progress Note ---
Medicine Progress Note Date & Time of Visit: Aug 26, 2017 at 13:50 . Subjective CC: Follow-up visit for alcohol withdrawal and other problems. HPI: Declined EGD yesterday because dysphagia improved. Tremor improved. No hallucinations. Gait improved. No chest pain. No cough or SOB. No nausea or vomiting. No urinary symptoms. No fever or chills. ROS: as noted above in HPI . Objective Last 8 Hrs Date Time Temp Pulse Resp B/P (MAP) Pulse Ox O2 Delivery O2 Flow Rate FiO2 08/26/17 16:00 Room Air 08/26/17 15:07 37.3 76 18 148/77 (100) 95 Room Air Physical Exam: General- lying in bed; no distress Eyes- anicteric ENT- hard of hearing Lungs- clear to auscultation; no respiratory distress Cardiovascular- RRR; no gallop; no JVD; no pretibial edema Abdomen- + bowel sounds, soft, nontender Extremities- no cyanosis; no calf tenderness Neuro- alert, oriented, mild resting tremor Skin- warm & dry . Laboratory Results: Last 24 Hours Test 08/26/17 05:09 White Blood Count 10.57 K/uL Red Blood Count 3.58 M/uL Hemoglobin 11.9 g/dL Hematocrit 33.0 % Mean Corpuscular Volume 92.2 fL Mean Corpuscular Hemoglobin 33.2 pg Mean Corpuscular Hemoglobin Concent 36.1 g/dl RDW Standard Deviation 53.4 fL RDW Coefficient of Variation 15.8 % Platelet Count 540 K/uL Mean Platelet Volume 8.2 fL Sodium Level 123 mmol/L Potassium Level 3.8 mmol/L Chloride Level 90 mmol/L Carbon Dioxide Level 27 mmol/L Anion Gap 6.0 mmol/L Blood Urea Nitrogen 11 mg/dl Creatinine 0.52 mg/dl Est Creatinine Clear Calc Drug Dose 144.5 ml/min Estimated GFR () 141.1 Estimated GFR (Non- 121.7 BUN/Creatinine Ratio 20.4 Random Glucose 88 mg/dl Calcium Level 8.7 mg/dl Assessment & Plan ALCOHOL ABUSE / ALCOHOL WITHDRAWAL Last alcohol consumption probably 08/13. Blood alcohol level in ED 121 md/dl. AWSS monitored; received gabapentin and PRN lorazepam per protocol. Continue thiamine, folate, MVI, etc. Counseling / rehab recommended. ELEVATED BP'S Probably secondary to alcohol withdrawal. Hydralazine ordered PRN. Added metoprolol. BP's improved. HYPONATREMIA Serum Na low. Electrolyte abnormalities probably due to inadequate intake due to alcohol consumption and probable SIADH. Tried fluid restriction, but patient unwilling to restrict fluids despite repeated attempts to explain and has been noncompliant. Attempted fluid restriction futile and discontinued. NaCl tablets. Follow. HYPOKALEMIA Serum K as low as 3.2. Electrolyte abnormalities probably due to inadequate intake due to alcohol consumption. Received IV replacement. K today = 3.8. Follow. HYPOMAGNESEMIA Serum Mg as low as 1.5. Electrolyte abnormalities probably due to inadequate intake due to alcohol consumption. Received IV replacement. Mg 08/24 was 2.0. Follow. THROMBOCYTOPENIA Platelet count as low as 73,000. No active bleeding. Thrombocytopenia may be secondary to alcohol abuse, even in absence of overt cirrhosis / portal hypertension. Hematology consulted. Platelet count today = 540,000. AMBULATORY DYSFUNCTION Ataxic gait with frequent falls for at least past few months. Consider cerebellar degeneration. MRI brain 06/13/17 showed old lacunar infarct left basal ganglia, ventricular prominence, minimal microvascular ischemic changes. Neuro consulted. [place] to have neuropathy and cerebellar ataxia. Outpatient neuro follow-up and NCV recommended. Continue PT / OT. DYSPHAGIA Having problems with dysphagia to pills and solids. Recurrent problem, has required esophageal dilatations for esophageal strictures (last procedure 05/22/18). May need repeat dilatation. GI consulted. Patient declines EGD at this time and will reconsider if symptoms persist / worsen. VTE PROPHYLAXIS No anticoagulants due to thrombocytopenia + alcohol abuse. SCD's. Ambulate as able. DISPOSITION Ataxic gait. High fall risk. Patient requires supervision with walker. Case Management consulted. No success with skilled care options. Gait improved. Probably DC to home with home health services. . Current Inpatient Medications: Current Inpatient Medications Medications (Trade) Dose Ordered Sig/Jaylene Route Start Time Stop Time Status Last Admin Dose Admin Ondansetron HCl (Zofran Inj) 4 mg Q6H PRN IV 08/14/17 01:30 09/13/17 01:29 Folic Acid 1 mg/ Syringe 10 ml @ 5 mls/min QAM IV 08/14/17 09:00 09/13/17 08:59 08/26/17 08:04 5 MLS/MIN Thiamine HCl 100 mg/Syringe 10 ml @ 2 mls/min Q24H IV 08/15/17 04:00 09/14/17 03:59 08/26/17 04:30 2 MLS/MIN Hydralazine HCl (Apresoline Tab) 10 mg Q6H PRN PO 08/14/17 14:30 09/13/17 14:29 08/21/17 07:38 10 MG Acetaminophen (Tylenol Tab) 1,000 mg Q8H PRN PO 08/14/17 20:15 09/13/17 20:14 08/25/17 19:32 1,000 MG Lorazepam (Ativan Tab) PRN Dosing -Active Protocol UD PRN PO 08/17/17 14:15 09/16/17 14:14 08/17/17 14:40 1 MG Lorazepam (Ativan Inj) PRN Dosing -Active Protocol Q1H PRN IV 08/17/17 14:45 09/13/17 01:44 08/17/17 16:57 1.5 MG Lorazepam 1 mg/ Syringe 1 ml @ 1 mls/min Q1H PRN IV 08/17/17 15:00 09/16/17 14:59 08/18/17 01:28 1 MLS/MIN Metoprolol Tartrate (Lopressor Tab) 25 mg BID PO 08/19/17 09:00 09/18/17 08:59 08/26/17 08:03 25 MG Sodium Chloride (Sodium Chloride Tab) 1 gm BID PO 08/23/17 21:00 09/22/17 20:59 08/26/17 08:03 1 GM Pantoprazole Sodium (Protonix Tab) 40 mg BID PO 08/26/17 21:00 09/25/17 20:59 UNV
[2017-08-26] MEDS: PANTOprazole SOD 40 MG TAB PO SCH (19:48)
[2017-08-26] MEDS: ACETAMINOPHEN 500 MG TAB PO PRN (19:53)
[2017-08-26 22:58] VITALS: BP 161/88; PULSE 66; TEMP 37.3; O2SAT 96
[2017-08-27] MEDS: ACETAMINOPHEN 500 MG TAB PO PRN ×2 (03:44→11:29)
[2017-08-27] MEDS: THIAMINE HCL INJ 100 MG in SYRINGE 9 ML IV SCH (04:05)
[2017-08-27 07:10] VITALS: BP 129/77; PULSE 61; TEMP 36.8; O2SAT 97
[2017-08-27] MEDS: METOPROLOL TARTRATE 25 MG TAB PO SCH (07:42)
[2017-08-27] MEDS: SODIUM CHLORIDE 1 GM TAB PO SCH (07:42)
[2017-08-27] MEDS: PANTOprazole SOD 40 MG TAB PO SCH (07:42)
[2017-08-27] MEDS: FoLIC ACID INJ 1 MG in SYRINGE 9.8 ML IV SCH (10:02)
--- NOTE | 2017-08-27 12:21 | Progress Note ---
Medicine Progress Note Date & Time of Visit: Aug 27, 2017 at 12:21 . Subjective Doing well. No headaches, sweats, hallucinations, tremors, nausea, vomiting. Ambulating without difficulty. . Objective Last 8 Hrs Date Time Temp Pulse Resp B/P (MAP) Pulse Ox O2 Delivery O2 Flow Rate FiO2 08/27/17 08:00 Room Air 08/27/17 07:10 36.8 61 18 129/77 (94) 97 Room Air Physical Exam: General- lying in bed; no distress Eyes- anicteric ENT- hard of hearing Lungs- clear to auscultation; no respiratory distress Cardiovascular- RRR; no gallop; no JVD; no pretibial edema Abdomen- + bowel sounds, soft, nontender Extremities- no cyanosis; no calf tenderness Neuro- alert, oriented, mild resting tremor Skin- warm & dry . Assessment & Plan ALCOHOL ABUSE / ALCOHOL WITHDRAWAL Last alcohol consumption probably 08/13. Blood alcohol level in ED 121 md/dl. AWSS monitored; received gabapentin and PRN lorazepam per protocol. Received thiamine, folate, MVI, etc. Counseling / rehab recommended. ELEVATED BP'S Probably secondary to alcohol withdrawal. Hydralazine ordered PRN. Added metoprolol. BP's improved. Discharge on metoprolo. HYPONATREMIA Serum Na as low as 121. Electrolyte abnormalities probably due to inadequate intake due to alcohol consumption and probable SIADH. Tried fluid restriction, but patient unwilling to restrict fluids despite repeated attempts to explain. Attempted fluid restriction futile and discontinued. NaCl tablets. Follow. HYPOKALEMIA Serum K as low as 3.2. Electrolyte abnormalities probably due to inadequate intake due to alcohol consumption. Received IV replacement. K 08/26 was 3.8. Follow. HYPOMAGNESEMIA Serum Mg as low as 1.5. Electrolyte abnormalities probably due to inadequate intake due to alcohol consumption. Received IV replacement. Mg 08/24 was 2.0. Follow. THROMBOCYTOPENIA Platelet count as low as 73,000. No active bleeding. Thrombocytopenia may be secondary to alcohol abuse, even in absence of overt cirrhosis / portal hypertension. Hematology consulted. Platelet 08/27 was 540,000. AMBULATORY DYSFUNCTION Ataxic gait with frequent falls for at least past few months. Consider cerebellar degeneration. MRI brain 06/13/17 showed old lacunar infarct left basal ganglia, ventricular prominence, minimal microvascular ischemic changes. Neuro consulted. 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 Outpatient neuro follow-up and NCV recommended. Received PT / OT. Significantly improved by discharge. DYSPHAGIA Having problems with dysphagia to pills. Recurrent problem, has required esophageal dilatations for esophageal strictures (last procedure 05/22/18). May need repeat dilatation. GI consulted. Patient declines EGD at this time and will reconsider if symptoms persist / worsen. VTE PROPHYLAXIS No anticoagulants due to thrombocytopenia + alcohol abuse. SCD's. Ambulate as able. DISPOSITION Case Management consulted. No success with skilled care options. Gait improved by discharge. DC to home with home health services. Patient would like to see Dr. Jorgensen for primary care follow-up. . Current Inpatient Medications: Current Inpatient Medications Medications (Trade) Dose Ordered Sig/Jaylene Route Start Time Stop Time Status Last Admin Dose Admin Ondansetron HCl (Zofran Inj) 4 mg Q6H PRN IV 08/14/17 01:30 09/13/17 01:29 Folic Acid 1 mg/ Syringe 10 ml @ 5 mls/min QAM IV 08/14/17 09:00 09/13/17 08:59 08/27/17 10:02 5 MLS/MIN Thiamine HCl 100 mg/Syringe 10 ml @ 2 mls/min Q24H IV 08/15/17 04:00 09/14/17 03:59 08/27/17 04:05 2 MLS/MIN Hydralazine HCl (Apresoline Tab) 10 mg Q6H PRN PO 08/14/17 14:30 09/13/17 14:29 08/21/17 07:38 10 MG Acetaminophen (Tylenol Tab) 1,000 mg Q8H PRN PO 08/14/17 20:15 09/13/17 20:14 08/27/17 11:29 1,000 MG Lorazepam (Ativan Tab) PRN Dosing -Active Protocol UD PRN PO 08/17/17 14:15 09/16/17 14:14 08/17/17 14:40 1 MG Lorazepam (Ativan Inj) PRN Dosing -Active Protocol Q1H PRN IV 08/17/17 14:45 09/13/17 01:44 08/17/17 16:57 1.5 MG Lorazepam 1 mg/ Syringe 1 ml @ 1 mls/min Q1H PRN IV 08/17/17 15:00 09/16/17 14:59 08/18/17 01:28 1 MLS/MIN Metoprolol Tartrate (Lopressor Tab) 25 mg BID PO 08/19/17 09:00 09/18/17 08:59 08/27/17 07:42 25 MG Sodium Chloride (Sodium Chloride Tab) 1 gm BID PO 08/23/17 21:00 09/22/17 20:59 08/27/17 07:42 1 GM Pantoprazole Sodium (Protonix Tab) 40 mg BID PO 08/26/17 21:00 08/30/17 20:59 08/27/17 07:42 40 MG
[2017-08-27] MEDS ORDERED: TNR25X PO (12:26)
[2017-08-27] MEDS ORDERED: SDMC1 PO (12:26)
[2017-08-27] MEDS ORDERED: MULTTAB58 PO (12:26)
[2017-08-27] MEDS ORDERED: THM100 PO (12:26)
--- NOTE | 2017-08-27 12:30 | Discharge Instructions ---
Discharge Instructions Date of Service Aug 27, 2017. Admission Reason for Admission: alcohol intoxication, weakness, falls . Discharge Discharge Diagnosis / Problem: alcohol withdrawal, weakness, low sodium level Discharge Goals Goal(s): Improve function, Improve disease control Activity Recommendations Activity Limitations: resume your previous activity Driving or Machine Use: no driving . Instructions / Follow-Up Instructions / Follow-Up APPOINTMENTS: Please call Dr. Jorgensen's office to schedule follow-up appointment next week. OTHER INSTRUCTIONS: Do not drink any beer or other alcoholic beverages. Please get help for your drinking problem. field crop farmworker gave you contact information. Seek medical attention if you have: * temperature above 101 * chest pain or trouble breathing * abdominal pain, nausea, vomiting * diarrhea, dark stools or bloody stools * any unanswered questions or concerns Call 911 if symptoms are severe. Call if you have any questions or problems. You can reach a [facility] hospitalist on duty at [facility] 24 hours a day by calling [phone]. Please take good care of yourself. David Bingham . Current Hospital Diet Patient's current hospital diet: Regular Diet Discharge Diet Recommended Diet: AHA Diet (Heart Healthy) Fluid Restriction: 2000 ml (8 cups) Pending Studies Studies pending at discharge: no Laboratory Results Lipid Panel Test 06/13/17 10:04 Range/Units Triglycerides Level 59 0-150 mg/dl Cholesterol Level 195 0-200 mg/dl HDL Cholesterol 128 mg/dl Cholesterol/HDL Ratio 1.5 LDL Cholesterol, Calculated 55 mg/dl Medical Emergencies . Who to Call and When: Medical Emergencies: If at any time you feel your situation is an emergency, please call 911 immediately. . Non-Emergent Contact Non-Emergency issues call your: Primary Care Provider, Hospital Doctor . . "Provider Documentation" section prepared by David Bingham. . VTE Core Measure Inpt VTE Proph given/why not?: SCD's
[2017-08-27 12:46] VITALS: BP 129/77; PULSE 61; TEMP 36.8; O2SAT 97
--- NOTE | 2017-08-29 22:47 | Discharge Summary ---
Discharge Summary Date of Service Aug 29, 2017. Discharge Summary Admission Date: Aug 14, 2017 at 01:30 Discharge Date: Aug 27, 2017 Discharge Disposition: Home with services Principal Diagnosis: alcohol intoxication OTHER ACUTE DIAGNOSES: alcohol withdrawal ambulatory dysfunction / ataxia hyponatremia hypokalemia dysphagia . Secondary Diagnoses/Problems: Chronic and Resolved Medical Problems: (1) Alcoholism Status: Chronic (2) Ambulatory dysfunction Status: Chronic (3) Fracture Calcaneus-Close Status: Resolved (4) Hip fracture Status: Resolved (5) Hypertension Status: Chronic . Procedures: CT head IV fluids IV meds PT OT . Consultations: Neurology . Medication Reconciliation New Medications: Atenolol (Atenolol) 25 Mg Tab 25 MG PO DAILY, #30 TAB 1 Refill Multiple Vitamin (Multivitamin) 1 Tab Tab 1 TAB PO DAILY, #30 TAB 5 Refills Sodium Chloride (Sodium Chloride) 1 Gm Tab 1 GM PO BID, #60 TAB 1 Refill Thiamine HCl (Vitamin B-1) 100 Mg Tab 100 MG PO DAILY, #30 TAB 5 Refills Admission Information HPI (per Admitting provider): He is a 52-year-old male with a significant past medical history of hypertension, history of an old CVA on CAT scan, past tobacco abuse, alcoholism as per record, history of esophageal stenosis as per record, chronic anemia, and chronic tremor, apparently has been complaining of weakness in both legs since this morning. He has been falling and since this morning, he has had 2 falls. He has been walking around his apartment holding a furniture TO AVOID fall. He does have nausea, but no vomiting. He is a heavy drinker. He usually drinks about 6 packs or more daily and his last drink was yesterday morning consisting of 3 beers. He denies having any headache, any blurred vision, any numbness or tingling in the extremities. He denies having any fever, chills or rigors, any cough or phlegm, any shortness of breath or palpitation. He does have some nausea, but no vomiting. In the Emergency Room, he was hemodynamically stable. He did have some tremor involving the upper extremities and he had weakness in the legs that he could not walk around even with help. From that point, he was advised for admission. Apparently, his blood alcohol level was noted to be at 120.8 with abnormal LFTs consistent with alcoholism. . Physical Exam (per Admitting): GENERAL: On examination in the Emergency Room, he was having tremor of outstretched hands, but no other symptoms. VITAL SIGNS: Temperature 36.7, pulse was 86, blood pressure 179/104, saturation 98% on room air. HEENT: Unremarkable. NECK: Supple. No JVD, no bruit. CHEST: Clear to auscultate bilaterally. HEART: S1, S2 regular. ABDOMEN: Soft, benign, nontender, no organomegaly. Bowel sounds present. EXTREMITIES: Negative for any edema. MUSCULOSKELETAL SYSTEM: Did not show any acute arthritis involving any joint. CENTRAL NERVOUS SYSTEM: He was alert, awake, oriented x3 and generally weak, but no focal neuro deficit appreciated. Examination of the legs did not show any sensory impairment. Bilaterally, legs were weak, but DTRs were 2+. . Hospital Course ALCOHOL ABUSE / ALCOHOL WITHDRAWAL Last alcohol consumption probably 08/13. Blood alcohol level in ED 121 md/dl. AWSS monitored; received gabapentin and PRN lorazepam per protocol. Received thiamine, folate, MVI, etc. Counseling / rehab recommended. ELEVATED BP'S Probably secondary to alcohol withdrawal. Hydralazine ordered PRN. Added metoprolol. BP's improved. Discharge on metoprolo. HYPONATREMIA Serum Na as low as 121. Electrolyte abnormalities probably due to inadequate intake due to alcohol consumption and probable SIADH. Tried fluid restriction, but patient unwilling to restrict fluids despite repeated attempts to explain. Attempted fluid restriction futile and discontinued. NaCl tablets. Follow. HYPOKALEMIA Serum K as low as 3.2. Electrolyte abnormalities probably due to inadequate intake due to alcohol consumption. Received IV replacement. K 08/26 was 3.8. Follow. HYPOMAGNESEMIA Serum Mg as low as 1.5. Electrolyte abnormalities probably due to inadequate intake due to alcohol consumption. Received IV replacement. Mg 08/24 was 2.0. Follow. THROMBOCYTOPENIA Platelet count as low as 73,000. No active bleeding. Thrombocytopenia may be secondary to alcohol abuse, even in absence of overt cirrhosis / portal hypertension. Hematology consulted. Platelet 08/27 was 540,000. AMBULATORY DYSFUNCTION Ataxic gait with frequent falls for at least past few months. Consider cerebellar degeneration. MRI brain 06/13/17 showed old lacunar infarct left basal ganglia, ventricular prominence, minimal microvascular ischemic changes. Neuro consulted. 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 Outpatient neuro follow-up and NCV recommended. Received PT / OT. Significantly improved by discharge. DYSPHAGIA Having problems with dysphagia to pills. Recurrent problem, has required esophageal dilatations for esophageal strictures (last procedure 05/22/18). May need repeat dilatation. GI consulted. Patient declines EGD at this time and will reconsider if symptoms persist / worsen. VTE PROPHYLAXIS No anticoagulants due to thrombocytopenia + alcohol abuse. SCD's. Ambulate as able. DISPOSITION Case Management consulted. No success with skilled care options. Gait improved by discharge. DC to home with home health services. Patient would like to see Dr. Jorgensen for primary care follow-up. . Total time spent on discharge = 40 min. This includes examination of the patient, discharge planning, medication reconciliation, and communication with other providers. . Discharge Instructions Date of Service Aug 27, 2017. Admission Reason for Admission: alcohol intoxication, weakness, falls . Discharge Discharge Diagnosis / Problem: alcohol withdrawal, weakness, low sodium level Discharge Goals Goal(s): Improve function, Improve disease control Activity Recommendations Activity Limitations: resume your previous activity Driving or Machine Use: no driving . Instructions / Follow-Up Instructions / Follow-Up APPOINTMENTS: Please call Dr. Jorgensen's office to schedule follow-up appointment next week. OTHER INSTRUCTIONS: Do not drink any beer or other alcoholic beverages. Please get help for your drinking problem. clothing trades workers gave you contact information. Seek medical attention if you have: * temperature above 101 * chest pain or trouble breathing * abdominal pain, nausea, vomiting * diarrhea, dark stools or bloody stools * any unanswered questions or concerns Call 911 if symptoms are severe. Call if you have any questions or problems. You can reach a [facility] hospitalist on duty at [facility] 24 hours a day by calling [phone]. Please take good care of yourself. David Bingham . Current Hospital Diet Patient's current hospital diet: Regular Diet Discharge Diet Recommended Diet: AHA Diet (Heart Healthy) Fluid Restriction: 2000 ml (8 cups) Pending Studies Studies pending at discharge: no Laboratory Results Lipid Panel Test 06/13/17 10:04 Range/Units Triglycerides Level 59 0-150 mg/dl Cholesterol Level 195 0-200 mg/dl HDL Cholesterol 128 mg/dl Cholesterol/HDL Ratio 1.5 LDL Cholesterol, Calculated 55 mg/dl Medical Emergencies . Who to Call and When: Medical Emergencies: If at any time you feel your situation is an emergency, please call 911 immediately. . Non-Emergent Contact Non-Emergency issues call your: Primary Care Provider, Hospital Doctor . . "Provider Documentation" section prepared by David Bingham. . VTE Core Measure Inpt VTE Proph given/why not?: SCD's . Additional Copies To Stevan Jorgensen M.D.
== END 2017-08-27 13:30 | disposition home health service (06) | DRG 57 ==
LOC: EDBD 20:49 → C.EDC 20:49 → C.MED 08-14 01:30 → ENRESERV 08-14 01:48 → C.MS2W 08-25 13:01
PROVIDERS: ADMIT Internal Medicine; ATTEND Hospitalist
DX: G31.2 Degeneration of nervous system due to alcohol (principal); F10.230 Alcohol dependence with withdrawal, uncomplicated; E87.1 Hypo-osmolality and hyponatremia; G62.1 Alcoholic polyneuropathy; F10.229 Alcohol dependence with intoxication, unspecified; I10 Essential (primary) hypertension; R25.1 Tremor, unspecified; D69.59 Other secondary thrombocytopenia; R13.10 Dysphagia, unspecified; E87.6 Hypokalemia; E83.42 Hypomagnesemia; Z86.73 Personal history of transient ischemic attack (TIA), and cerebral infarction without residual deficits; Z87.891 Personal history of nicotine dependence; Z88.0 Allergy status to penicillin

== ENCOUNTER 2017-09-04 11:40 | Inpatient (IN) | payer OTHER ==
[~2017-09-04] VITALS: Ht 180.3 cm; Wt 60.5 kg
[~2017-09-04 11:40] MED LIST changes: -ACET-1256 PO; -ASCO500T3 PO; -CYAN100T6 PO; -MULT-890 PO; +MULTTAB58 PO; -NRV5 PO; +SDMC1 PO; +THM100 PO; +TNR25X PO
[2017-09-04] MEDS ORDERED: SODIUM CHLORIDE 0.9% 1000ML 1,000 ML IV STA (12:34)
[2017-09-04] MEDS ORDERED: OPTIRAY 320 IV PRN (12:45)
--- NOTE | 2017-09-04 12:54 | EMERGENCY ROOM VISIT NOTE ---
History Report prepared by Renetta: Jim Ellis Under the Supervision of: Dr. Aurelia Mayen D.O. First contact with patient: 12:12 Chief Complaint: DIZZY Stated Complaint: WEAKNESS/LOSS OF BALANCE Nursing Triage Summary: Patient to ED via BLS patient states he was dizzy and lost his balance. Patient states that dizziness is worse today, has been progressing over last 2 weeks since he was discharged from the hospital "for the same thing". Patient states he fell "a few times today" denies injury. Patient fell and broke right hip in February. Patient states he drank 4 beers last night, denies drinking today. History of Present Illness The patient is a 52 year old male who presents to the Emergency Room with complaints of worsening dizziness for the past two weeks. He states that he feels very unstable. The patient states that the dizziness is usually worse in the morning. The patient fell multiple times this morning from the instability, and he states that he fell sideways. He did not hit his head or lose consciousness. He states that this has happened before in the past, and he has broken a right hip and his left ribs in the past. The patient notes that he has been using a walker for stability, though it has been getting to the point where it is not helping him. He reports that he drinks alcohol, and he drinks 6- 8 drinks per day, though he states that this does not seem to affect his dizziness. He reports that he drank more alcohol yesterday. The patient denies any headache, chest pain, abdominal pain, vomiting, diarrhea, shortness of breath, and vision changes. He states that he is a former smoker. The patient states that he had the chills this morning. He denies any numbness or tingling. Source of History: patient Onset: past two weeks Position: other (global) Quality: other (dizziness) Timing: worsening Associated Symptoms: + chills, No chest pain, No SOB, No vomiting, No abdominal pain, No diarrhea Review of Systems See HPI for pertinent positives & negatives. A total of 10 systems reviewed and were otherwise negative. Past Medical & Surgical Medical Problems: (1) Alcoholism (2) Alcoholism /alcohol abuse (3) Ambulatory dysfunction (4) Ataxia (5) Bilateral leg weakness (6) Fracture Calcaneus-Close (7) Frequent falls (8) Hip fracture (9) Hypertension (10) Hyponatremia (11) Weakness of both lower limbs Social History Problems: (1) Alcohol abuse Family History FHx: cancer Social History Smoking Status: Never Smoker Alcohol Use: heavy Drug Use: none Marital Status: single Housing Status: other Occupation Status: unemployed Current/Historical Medications No Active Prescriptions or Reported Meds Allergies Coded Allergies: Penicillins (Verified Adverse Reaction, Mild, TIRED, 09/04/17) Physical Exam Vital Signs Date Time Temp Pulse Resp B/P (MAP) Pulse Ox O2 Delivery O2 Flow Rate FiO2 09/04/17 18:20 95 20 165/95 09/04/17 17:24 79 20 172/96 Room Air 09/04/17 17:00 09/04/17 16:54 85 183/100 88 187/107 111 158/100 09/04/17 16:35 70 09/04/17 15:32 74 22 177/99 Room Air 09/04/17 14:03 85 20 177/99 94 Room Air 09/04/17 12:28 79 09/04/17 11:40 92 20 155/100 97 Room Air Physical Exam GENERAL: alert, well appearing, well nourished, no distress, non-toxic, tremulous EYE EXAM: normal conjunctiva, PERRL and EOM's grossly intact OROPHARYNX: no exudate, no erythema, lips, buccal mucosa, and tongue normal and mucous membranes are mildly dry NECK: supple, no nuchal rigidity, no adenopathy, non-tender LUNGS: Clear to auscultation. Normal chest wall mechanics HEART: no murmurs, S1 normal and S2 normal ABDOMEN: abdomen soft, non-tender, normo-active bowel sounds, no masses, no rebound or guarding. BACK: Back is symmetrical on inspection and there is no deformity, no midline tenderness, no CVA tenderness. SKIN: no rashes and no bruising UPPER EXTREMITIES: upper extremities are grossly normal. LOWER EXTREMITIES: No pitting edema. NEURO EXAM: Normal sensorium, cranial nerves II-XII intact, normal speech, no weakness of arms, no weakness of legs. No drift. Finger to nose intact. Gross sensation intact. Medical Decision & Procedures ER Provider Diagnostic Interpretation: Radiology results have been interpreted by the radiologist and reviewed by me. CT ANGIOGRAPHY HEAD COMBO CT DOSE: 664.43 mGy.cm CLINICAL HISTORY: Worsening dizziness, falls. TECHNIQUE: Unenhanced images were obtained the brain. The patient was then scanned in a dynamic helical fashion during intravenous administration of 93 cc Optiray 320. MIP imaging was performed. A dose lowering technique was utilized adhering to the principles of ALARA. COMPARISON STUDY: Noncontrast head CT dated 08/13/2017 FINDINGS: No intra or extra-axial mass lesions are visualized. There is no CT evidence of acute cortical infarction. There is no midline shift. There is no acute hemorrhage. There are atrophic changes most pronounced in the cerebellum. There is no acute sinusitis. CT angiographic images reveal no major intracranial branch occlusions. There are no lesions suspicious for aneurysm. There is no major intracranial stenosis. There is no evidence of dural venous sinus thrombosis. There are no pathologically enhancing masses. IMPRESSION: Unremarkable CT angiography of the brain Electronically signed by: Alejandro Lucas M.D. 09/04/2017 2:09 PM Dictated Date/Time: 09/04/2017 2:06 PM CHEST 2 VIEWS ROUTINE HISTORY: cough, lightheaded COMPARISON: Chest 08/13/2017. FINDINGS: Old, healed left-sided rib fractures are again noted. No pleural effusions. No pneumothorax. The heart is normal in size. Mildly tortuous thoracic aorta, unchanged. No focal lung consolidations to suggest pneumonia. No evidence for pulmonary edema. Minimal superior endplate anterior wedging within the mid thoracic spine vertebral body is likely old. IMPRESSION: No significant change compared to the prior study. No acute process. Electronically signed by: Jigar Cassidy M.D. 09/04/2017 1:18 PM Dictated Date/Time: 09/04/2017 1:09 PM Laboratory Results Test 09/04/17 11:55 09/04/17 15:12 09/04/17 16:00 Immature Granulocyte % (Auto) 0.4 % White Blood Count 10.02 K/uL (4.8-10.8) Red Blood Count 4.11 M/uL (4.7-6.1) Hemoglobin 13.1 g/dL (14.0-18.0) Hematocrit 37.5 % (42-52) Mean Corpuscular Volume 91.2 fL (80-100) Mean Corpuscular Hemoglobin 31.9 pg (25-34) Mean Corpuscular Hemoglobin Concent 34.9 g/dl (32-36) Platelet Count 363 K/uL (130-400) Mean Platelet Volume 8.0 fL (7.4-10.4) Neutrophils (%) (Auto) 75.6 % Lymphocytes (%) (Auto) 15.0 % Monocytes (%) (Auto) 7.3 % Eosinophils (%) (Auto) 1.1 % Basophils (%) (Auto) 0.6 % Neutrophils # (Auto) 7.58 K/uL (1.4-6.5) Lymphocytes # (Auto) 1.50 K/uL (1.2-3.4) Monocytes # (Auto) 0.73 K/uL (0.11-0.59) Eosinophils # (Auto) 0.11 K/uL (0-0.5) Basophils # (Auto) 0.06 K/uL (0-0.2) Immature Granulocyte # (Auto) 0.04 K/uL (0.00-0.02) Prothrombin Time 10.4 SECONDS (9.0-12.0) Prothromb Time International Ratio 1.0 (0.9-1.1) Total Bilirubin 0.4 mg/dl (0.2-1) Aspartate Amino Transf (AST/SGOT) 36 U/L (15-37) Alanine Aminotransferase (ALT/SGPT) 25 U/L (12-78) Alkaline Phosphatase 128 U/L (45-117) Troponin I < 0.015 ng/ml (0-0.045) Total Protein 7.8 gm/dl (6.4-8.2) Albumin 3.5 gm/dl (3.4-5.0) Globulin 4.3 gm/dl (2.5-4.0) Albumin/Globulin Ratio 0.8 (0.9-2) Thyroid Stimulating Hormone (TSH) 0.912 uIu/ml (0.300-4.500) Hepatitis C Antibody Screen NEG (NEG) Ethyl Alcohol mg/dL 83.1 mg/dl (0-3) Urine Color YELLOW Urine Appearance CLEAR (CLEAR) Urine pH 7.0 (4.5-7.5) Urine Specific [place] 1.045 (1.000-1.030) Urine Protein NEG (NEG) Urine Glucose (UA) NEG (NEG) Urine Ketones 1+ (NEG) Urine Occult Blood NEG (NEG) Urine Nitrite NEG (NEG) Urine Bilirubin NEG (NEG) Urine Urobilinogen NEG (NEG) Urine Leukocyte Esterase NEG (NEG) Urine Opiates Screen NEG (NEG) Urine Methadone, Qualitative NEG (NEG) Urine Barbiturates NEG (NEG) Urine Phencyclidine (PCP) Level NEG (NEG) Ur Amphetamine/Methamphetamine NEG (NEG) MDMA (Ecstasy) Screen NEG (NEG) Urine Benzodiazepines Screen NEG (NEG) Urine Cocaine Metabolite NEG (NEG) Urine Marijuana (THC) NEG (NEG) Laboratory results per my review. Medications Administered Medications (Trade) Dose Ordered Sig/Jaylene Route Start Time Stop Time Status Last Admin Dose Admin Sodium Chloride 1,000 ml @ 250 mls/hr Q4H STAT IV 09/04/17 12:34 09/04/17 16:33 DC 09/04/17 12:43 250 MLS/HR Folic Acid (Folvite Tab) 1 mg NOW STAT PO 09/04/17 16:55 09/04/17 16:57 DC 09/04/17 17:16 1 MG Thiamine HCl (Vitamin B-1 Tab) 100 mg NOW STAT PO 09/04/17 16:55 09/04/17 16:57 DC 09/04/17 17:16 100 MG Lorazepam (Ativan Inj) 1 mg NOW STAT IV 09/04/17 17:09 09/04/17 17:11 DC 09/04/17 17:23 1 MG ECG Per My Interpretation Indication: other (dizziness) Rate (beats per minute): 78 Rhythm: sinus rhythm Findings: Q waves (Septal), no ectopy, other (Normal axis and normal intervals) ED Course 1212: The patient was evaluated in room B3. A complete history and physical exam was performed. Review of the patient's EMR shows that the patient had both a CT and MRI of his head within the last 3 months. He seems to have chronic hyponatremia. 1234: Sodium Chloride 1000 ml @ 250 mls/hr IV 1535: I reevaluated the patient, and I updated him. He was doing the same. 1655: Thiamine HCl 100mg PO, Folic Acid 1mg PO 1709: Ativan 1mg IV 1710: The patient failed his orthostatics and his ambulatory trials.I reevaluated him, and I discussed the treatment plan with him. He was agreeable. 1731: I reviewed the patient's case [facility] He will evaluate the patient for further management. Medical Decision Differential diagnosis: Etiologies such as benign positional vertigo, dehydration, hypovolemia, anemia, tumor, infection, hypoglycemia, electrolyte abnormalities, cardiac sources, intracerebral event, toxicologic, neurologic, as well as others were entertained. Pt with hx of alcohol abuse and is unrealistic about his condition and seems here for secondary gain likely from social conditions. Pt well known to hospital and here previously with similar presentations. Pt with stable VS, negative imaging, and improved labs compared to prior. PT unavailable for eval in ED. Pt unable to be placed in detox program due to inability to walk as noted on orthostatics and ambulatory trial. Pt with mild withdrawal symptoms here, mild htn, no tachycardia, no hallucinations, mild tremors, improved with ativan. No evidence of fulminant DT's. Medication Reconcilliation Current Medication List: was personally reviewed by me Blood Pressure Screening Patient's blood pressure: Elevated blood pressure Monitored by the hospitalist Consults Time Called: 1710 Consulting Physician: Dr. Zachery King Hospitalist Returned Call: 1731 I reviewed the patient's case with Dr. Zachery King Hospitalist. He will evaluate the patient for further management. Impression Primary Impression: Alcohol withdrawal Additional Impressions: Alcoholism Ambulatory dysfunction Scribe Attestation The scribe's documentation has been prepared under my direction and personally reviewed by me in its entirety. I confirm that the note above accurately reflects all work, treatment, procedures, and medical decision making performed by me. Departure Information Dispostion Being Evaluated By Hospitalist Prescriptions No Active Prescriptions or Reported Meds Referrals Stevan Jorgensen M.D. (PCP) Patient Instructions My [facility] Problem Qualifiers Primary Impression: Alcohol withdrawal Complication of substance-induced condition: uncomplicated Qualified Codes: F10.230 - Alcohol dependence with withdrawal, uncomplicated
[2017-09-04 13:11] LABS: BASO % 0.6 %; BASO ABS # 0.06 K/uL (0-0.2); EOS % 1.1 %; EOS ABS # 0.11 K/uL (0-0.5); HEMATOCRIT 37.5 % (42-52); HEMOGLOBIN 13.1 g/dL (14.0-18.0); IG# 0.04 K/uL (0.00-0.02); MEAN CELL VOLUME 91.2 fL (80-100); MEAN CORPUSCULAR HEMOGLOBIN 31.9 pg (25-34); MEAN CORPUSCULAR HGB CONC 34.9 g/dl (32-36); MONO % 7.3 %; MONO ABS # 0.73 K/uL (0.11-0.59); NEUT % 75.6 %; NEUT ABS # 7.58 K/uL (1.4-6.5); PLATELET COUNT 363 K/uL (130-400); RED CELL DISTRIBUTION WIDTH CV 16.5 % (11.5-14.5); RED CELL DISTRIBUTION WIDTH SD 55.2 fL (36.4-46.3); WHITE BLOOD COUNT 10.02 K/uL (4.8-10.8)
[2017-09-04 13:18] LABS: BLOOD UREA NITROGEN 6 mg/dl (7-18); CREATININE 0.62 mg/dl (0.60-1.40); GLUCOSE 72 mg/dl (70-99)
[2017-09-04 13:19] LABS: ALBUMIN 3.5 gm/dl (3.4-5.0); ALT/SGPT 25 U/L (12-78); CARBON DIOXIDE 22 mmol/L (21-32); SODIUM 135 mmol/L (136-145)
--- NOTE | 2017-09-04 13:20 | DIAGNOSTIC IMAGING REPORT ---
CHEST 2 VIEWS ROUTINE HISTORY: cough, lightheaded COMPARISON: Chest 08/13/2017. FINDINGS: Old, healed left-sided rib fractures are again noted. No pleural effusions. No pneumothorax. The heart is normal in size. Mildly tortuous thoracic aorta, unchanged. No focal lung consolidations to suggest pneumonia. No evidence for pulmonary edema. Minimal superior endplate anterior wedging within the mid thoracic spine vertebral body is likely old. IMPRESSION: No significant change compared to the prior study. No acute process. Electronically signed by: Jigar Cassidy M.D. 09/04/2017 1:18 PM Dictated Date/Time: 09/04/2017 1:09 PM
[2017-09-04 13:30] LABS: ALKALINE PHOSPHATASE 128 U/L (45-117); AST/SGOT 36 U/L (15-37); PHOSPHORUS 3.7 mg/dl (2.5-4.9); TOTAL PROTEIN 7.8 gm/dl (6.4-8.2)
--- NOTE | 2017-09-04 14:10 | DIAGNOSTIC IMAGING REPORT ---
CT ANGIOGRAPHY HEAD COMBO CT DOSE: 664.43 mGy.cm CLINICAL HISTORY: Worsening dizziness, falls. TECHNIQUE: Unenhanced images were obtained the brain. The patient was then scanned in a dynamic helical fashion during intravenous administration of 93 cc Optiray 320. MIP imaging was performed. A dose lowering technique was utilized adhering to the principles of ALARA. COMPARISON STUDY: Noncontrast head CT dated 08/13/2017 FINDINGS: No intra or extra-axial mass lesions are visualized. There is no CT evidence of acute cortical infarction. There is no midline shift. There is no acute hemorrhage. There are atrophic changes most pronounced in the cerebellum. There is no acute sinusitis. CT angiographic images reveal no major intracranial branch occlusions. There are no lesions suspicious for aneurysm. There is no major intracranial stenosis. There is no evidence of dural venous sinus thrombosis. There are no pathologically enhancing masses. IMPRESSION: Unremarkable CT angiography of the brain Electronically signed by: Alejandro Lucas M.D. 09/04/2017 2:09 PM Dictated Date/Time: 09/04/2017 2:06 PM
[2017-09-04] MEDS ORDERED: THIAMINE HCL 100 MG TAB PO STA (16:55)
[2017-09-04] MEDS ORDERED: LORAZEPAM 2 MG/ML 1 ML VIAL IV STA (17:09)
[2017-09-04] MEDS ORDERED: LORAZEPAM 2 MG/ML 1 ML VIAL ONE (17:19)
[2017-09-04] MEDS ORDERED: GABAPENTIN 800 MG TAB PO SCH (19:00)
--- NOTE | 2017-09-04 19:01 | History and Physical ---
History & Physical Date & Time of Service: Sep 04, 2017 at 19:01 . Chief Complaint: weakness, trouble walking . Primary Care Physician: Stevan Jorgensen M.D. . History of Present Illness Source: patient, hospital records 52-year-old male who has not received regular outpatient medical care. History of alcoholism, ataxia with ambulatory dysfunction and multiple falls, hypertension, and other problems noted below. Hospitalized at [facility] from 08/05/2017 through 08/27/17 with prolonged alcohol withdrawal, ataxia, hyponatremia, and other problems. Received gabapentin, lorazepam, thiamine, and other therapies with improvement of his alcohol withdrawal and ataxia. Received PT and OT. Seen in consultation by Neurology for ataxia and ambulatory dysfunction; symptoms felt to be secondary to neuropathy and cerebellar ataxia. Significant hyponatremia attributed to decreased electrolyte intake and probable SIADH. Hyponatremia was treated with IV normal saline and subsequent fluid restriction. Patient preferred not to be on a fluid restriction and was placed on sodium chloride tablets. Experienced dysphagia to solids and pills during hospital stay. Previous history of esophageal stricture, status post dilatation. GI was consulted and follow-up EGD/dilatation offered; the patient opted to have an outpatient follow-up. Case Management was consulted and attempted placement in skilled care, but no viable options were available. By the time of discharge, patient was medically stable and ambulating without difficulty. Abstinence from alcohol consumption was strongly advised and patient was given contact information for counseling resources. He was discharged to his apartment on 08/27/17. Patient indicated that he would like to be seen by Dr. Jorgensen for primary care and was advised to make an appointment for follow-up, but apparently did not. He returned to the ED today complaining of generalized weakness, tremors, difficulty ambulating. Patient states that he fell a few times. Denies headache. Admits drinking about 6 beers/day. He states that his dysphagia to solids has worsened since his discharge. No nausea or vomiting. No abdominal pain. No melena or hematochezia. . Past Medical/Surgical History Medical Problems: (1) Alcoholism Status: Chronic (2) Ambulatory dysfunction Status: Chronic (3) Fracture Calcaneus-Close Status: Resolved (4) Hip fracture Status: Resolved (5) Hypertension Status: Chronic Family History Hypertension Social History Smoking Status: Never Smoker Alcohol Use: heavy Drug Use: none Marital Status: single Housing status: other Occupational Status: unemployed Multi-Drug Resistant Organisms History of MDRO: No Allergies Coded Allergies: Penicillins (Verified Adverse Reaction, Mild, TIRED, 09/04/17) Home Medications No Active Prescriptions or Reported Meds Review of Systems Constitutional: No fever, No weight loss Eyes: No worsening of vision, No diplopia ENT: + hearing loss (chronic), + trouble swallowing, No sore throat Respiratory: + cough (occasional, mild), No shortness of breath Cardiovascular: No chest pain, No edema Abdomen: + problem reported (as noted above in HPI) Musculoskeletal: No joint pain, No muscle pain Genitourinary - Male: No hematuria, No dysuria Neurologic: + weakness, + balance problems Endocrine: No excessive thirst Hematologic / Lymphatic: No abnormal bleeding/bruising, No swollen lymph nodes Integumentary: No rash, No new/changing skin lesions Physical Exam Vital Signs Date Time Temp Pulse Resp B/P (MAP) Pulse Ox O2 Delivery O2 Flow Rate FiO2 09/04/17 18:20 95 20 165/95 09/04/17 17:24 79 20 172/96 Room Air 09/04/17 17:00 09/04/17 16:54 85 183/100 88 187/107 111 158/100 09/04/17 16:35 70 09/04/17 15:32 74 22 177/99 Room Air 09/04/17 14:03 85 20 177/99 94 Room Air 09/04/17 12:28 79 09/04/17 11:40 92 20 155/100 97 Room Air General Appearance: no apparent distress, + thin Head: normocephalic, atraumatic Eyes: normal inspection, PERRL, EOMI, sclerae normal, + pertinent finding ( Conjunctivae normal) ENT: normal ENT inspection, + pertinent finding (very hard of hearing; dentition poor) Neck: supple, no adenopathy, thyroid normal, no JVD, trachea midline Respiratory/Chest: lungs clear, no respiratory distress Cardiovascular: regular rate, rhythm, no edema, no gallop, no JVD, + systolic murmur (II/ systolic murmur at base) Abdomen/GI: normal bowel sounds, non tender, soft, no organomegaly, no pulsatile mass Extremities/Musculoskelatal: no calf tenderness, normal capillary refill, + pertinent finding (no cyanosis, no clubbing) Neurologic/Psych: dog boarder II-XII nml as tested (PERRL, EOMI, no facial palsy, mild dysarthria), + pertinent finding (Coarse resting tremor; ataxic gait; difficulty with finger to nose; diffuse motor weakness; oriented but somewhat confused) Skin: normal color, warm/dry, no rash Lymphatic: no adenopathy (cervical) Diagnostics Laboratory Results Results Past 24 Hours Test 09/04/17 11:55 09/04/17 15:12 09/04/17 16:00 Range/Units White Blood Count 10.02 4.8-10.8 K/uL Red Blood Count 4.11 4.7-6.1 M/uL Hemoglobin 13.1 14.0-18.0 g/dL Hematocrit 37.5 42-52 % Mean Corpuscular Volume 91.2 80-100 fL Mean Corpuscular Hemoglobin 31.9 25-34 pg Mean Corpuscular Hemoglobin Concent 34.9 32-36 g/dl Platelet Count 363 130-400 K/uL Mean Platelet Volume 8.0 7.4-10.4 fL Neutrophils (%) (Auto) 75.6 % Lymphocytes (%) (Auto) 15.0 % Monocytes (%) (Auto) 7.3 % Eosinophils (%) (Auto) 1.1 % Basophils (%) (Auto) 0.6 % Neutrophils # (Auto) 7.58 1.4-6.5 K/uL Lymphocytes # (Auto) 1.50 1.2-3.4 K/uL Monocytes # (Auto) 0.73 0.11-0.59 K/uL Eosinophils # (Auto) 0.11 0-0.5 K/uL Basophils # (Auto) 0.06 0-0.2 K/uL RDW Standard Deviation 55.2 36.4-46.3 fL RDW Coefficient of Variation 16.5 11.5-14.5 % Immature Granulocyte % (Auto) 0.4 % Immature Granulocyte # (Auto) 0.04 0.00-0.02 K/uL Prothrombin Time 10.4 9.0-12.0 SECONDS Prothromb Time International Ratio 1.0 0.9-1.1 Sodium Level 135 136-145 mmol/L Potassium Level 4.0 3.5-5.1 mmol/L Chloride Level 95 98-107 mmol/L Carbon Dioxide Level 22 21-32 mmol/L Anion Gap 17.0 3-11 mmol/L Blood Urea Nitrogen 6 7-18 mg/dl Creatinine 0.62 0.60-1.40 mg/dl Est Creatinine Clear Calc Drug Dose 124.7 ml/min Estimated GFR () 131.3 Estimated GFR (Non- 113.3 BUN/Creatinine Ratio 9.0 10-20 Random Glucose 72 70-99 mg/dl Calcium Level 9.0 8.5-10.1 mg/dl Phosphorus Level 3.7 2.5-4.9 mg/dl Magnesium Level 1.9 1.8-2.4 mg/dl Total Bilirubin 0.4 0.2-1 mg/dl Aspartate Amino Transf (AST/SGOT) 36 15-37 U/L Alanine Aminotransferase (ALT/SGPT) 25 12-78 U/L Alkaline Phosphatase 128 45-117 U/L Troponin I < 0.015 0-0.045 ng/ml Total Protein 7.8 6.4-8.2 gm/dl Albumin 3.5 3.4-5.0 gm/dl Globulin 4.3 2.5-4.0 gm/dl Albumin/Globulin Ratio 0.8 0.9-2 Thyroid Stimulating Hormone (TSH) 0.912 0.300-4.500 uIu/ml Ethyl Alcohol mg/dL 83.1 0-3 mg/dl Urine Color YELLOW Urine Appearance CLEAR CLEAR Urine pH 7.0 4.5-7.5 Urine Specific [place] 1.045 1.000-1.030 Urine Protein NEG NEG Urine Glucose (UA) NEG NEG Urine Ketones 1+ NEG Urine Occult Blood NEG NEG Urine Nitrite NEG NEG Urine Bilirubin NEG NEG Urine Urobilinogen NEG NEG Urine Leukocyte Esterase NEG NEG Urine Opiates Screen NEG NEG Urine Methadone, Qualitative NEG NEG Urine Barbiturates NEG NEG Urine Phencyclidine (PCP) Level NEG NEG Ur Amphetamine/Methamphetamine NEG NEG MDMA (Ecstasy) Screen NEG NEG Urine Benzodiazepines Screen NEG NEG Urine Cocaine Metabolite NEG NEG Urine Marijuana (THC) NEG NEG Diagnostic Radiology CHEST 2 VIEWS ROUTINE FINDINGS: Old, healed left-sided rib fractures are again noted. No pleural effusions. No pneumothorax. The heart is normal in size. Mildly tortuous thoracic aorta, unchanged. No focal lung consolidations to suggest pneumonia. No evidence for pulmonary edema. Minimal superior endplate anterior wedging within the mid thoracic spine vertebral body is likely old. IMPRESSION: No significant change compared to the prior study. No acute process. Electronically signed by: Jigar Cassidy M.D. 09/04/2017 1:18 PM Dictated Date/Time: 09/04/2017 1:[address] ANGIOGRAPHY HEAD COMBO FINDINGS: No intra or extra-axial mass lesions are visualized. There is no CT evidence of acute cortical infarction. There is no midline shift. There is no acute hemorrhage. There are atrophic changes most pronounced in the cerebellum. There is no acute sinusitis. CT angiographic images reveal no major intracranial branch occlusions. There are no lesions suspicious for aneurysm. There is no major intracranial stenosis. There is no evidence of dural venous sinus thrombosis. There are no pathologically enhancing masses. IMPRESSION: Unremarkable CT angiography of the brain Electronically signed by: Alejandro Lucas M.D. 09/04/2017 2:09 PM Dictated Date/Time: 09/04/2017 2:06 PM . EKG EKG performed at 1216 reviewed and demonstrated baseline artifact, sinus rhythm at 80/minute, possible age-indeterminate septal infarct, no acute ST or T-wave abnormalities. . Impression Assessment and Plan ALCOHOLISM / ALCOHOL WITHDRAWAL Patient admits drinking about 6 cans of beer per day. Presents the ED with worsening ataxia and severe tremors. Blood alcohol level 83. Alcohol withdrawal protocol with gabapentin and lorazepam ordered. IV thiamine, folate, multivitamins. Reinforced need for counseling once symptoms improved. ATAXIA / AMBULATORY DYSFUNCTION Recurrent ataxia with severe ambulatory dysfunction. Unsteady gait in the ED despite assistance x 2. 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 Ataxia and gait dysfunction improved significantly during last hospital stay, probably due to abstinence from alcohol and administration of thiamine and other vitamins. Resume PT/OT when able. HYPONATREMIA Serum sodium as low as 121 during last hospital stay. Hyponatremia attributed to decrease electrolyte intake due to alcoholism + SIADH. He was placed on a fluid restriction, but noncompliant. Subsequently placed on Na liberal diet and NaCl tablets. Serum sodium 135 today. Follow. DYSPHAGIA History of esophageal stricture, status post dilatation. GI consult during last hospital stay for recurrent symptoms, the patient opted to have outpatient follow-up. He now indicates that symptoms have worsened since his last hospital stay. PPI. Consult GI once alcohol withdrawal symptoms have resolved. VTE PROPHYLAXIS No chemoprophylaxis due to heavy alcohol consumption. SCD's. Ambulate. DISPOSITION To be determined. May need skilled care. Consult Case Management. . VTE Prophylaxis VTE Risk Assessment Done? Y/N: Yes Risk Level: Moderate Given or contraindicated: SCD's
[2017-09-04 19:48] VITALS: BP 200/96; PULSE 79; TEMP 37.1; O2SAT 99; Ht 180.3 cm; Wt 60.5 kg
[2017-09-04] MEDS ORDERED: MULTI-VITAMIN INFUSION INJ 10 ML, THIAMINE HCL INJ 100 MG, FoLIC ACID INJ 1 MG in SODIU... IV ONE (20:00)
[2017-09-04] MEDS ORDERED: GABAPENTIN 800MG LOADING DOSE PO ONE (20:00)
[2017-09-04] MEDS: LORAZEPAM 2 MG/ML 1 ML VIAL IV PRN (21:46)
[2017-09-04 23:20] VITALS: BP 161/87; PULSE 64; TEMP 37.1; O2SAT 95
[2017-09-05] VITALS (11 sets, daily range): BP systolic 154–183; BP diastolic 83–110; PULSE 52–74; TEMP 36.3–37; O2SAT 95–99
[2017-09-05] MEDS ORDERED: INFLUENZA VIRUS QUAD VACCINE 0.5 ML SYR IM. ONE (03:45)
[2017-09-05] MEDS ORDERED: INFLUENZA ADMINISTRATION CHARGE ONE (03:45)
[2017-09-05] MEDS: GABAPENTIN 400MG Q6H DOSE PO SCH ×2 (06:19→13:10)
[2017-09-05] MEDS: LORAZEPAM 2 MG/ML 1 ML VIAL IV PRN ×2 (06:53→09:36)
[2017-09-05 07:12] LABS: HEMOGLOBIN 14.4 g/dL (14.0-18.0); MEAN CELL VOLUME 91.3 fL (80-100); MEAN CORPUSCULAR HEMOGLOBIN 32.1 pg (25-34); MEAN CORPUSCULAR HGB CONC 35.1 g/dl (32-36); MEAN PLATELET VOLUME 8.2 fL (7.4-10.4); PLATELET COUNT 281 K/uL (130-400); RED CELL DISTRIBUTION WIDTH CV 16.5 % (11.5-14.5); RED CELL DISTRIBUTION WIDTH SD 54.4 fL (36.4-46.3); WHITE BLOOD COUNT 6.93 K/uL (4.8-10.8)
[2017-09-05 07:42] LABS: CREATININE 0.54 mg/dl (0.60-1.40); POTASSIUM 3.5 mmol/L (3.5-5.1)
[2017-09-05 07:44] LABS: PHOSPHORUS 3.1 mg/dl (2.5-4.9)
[2017-09-05] MEDS: MULTI-VITAMIN INFUSION INJ 10 ML, THIAMINE HCL INJ 100 MG, FoLIC ACID INJ 1 MG in SODIU... IV SCH (08:26)
--- NOTE | 2017-09-05 18:10 | Progress Note ---
Internal Med Progress Note Date of Service: Sep 05, 2017. Provider Documentation: SUBJECTIVE: resting comfortably somewhat drowsy says he has oesophageal stricture and he is scheduled for dilation in couple of days and asks to notify GI denies any pain no sob OBJECTIVE: Vital Signs-as noted below Exam: General-alert and oriented.somewhat drowsy. Not in distress ENT-normal hearing Neck-no neck masses Lungs-cta b/l no wheezing or crackles Heart-s1 and s2 heard regular rate and rhythm no murmurs Abdomen-soft bowel sounds present non tender no distension Extremities-no edema no erythema Neuro-alert and awake moves extremities Lab data as noted below. ASSESSMENT & PLAN: ALCOHOLISM / ALCOHOL WITHDRAWAL Presents with worsening ataxia and severe tremors. hx of alcoholism Blood alcohol level 83. Alcohol withdrawal protocol with gabapentin and Ativan IV thiamine, folate, multivitamins. counselling. ATAXIA / AMBULATORY DYSFUNCTION Recurrent ataxia with severe ambulatory dysfunction. 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 Ataxia and gait dysfunction seems improved significantly during last hospital stay, probably due to abstinence from alcohol and administration of thiamine and other vitamins. Will resume PT/OT when able. HYPONATREMIA Serum sodium was as low as 121 during last hospital stay. Most likely secondary to decrease electrolyte intake due to alcoholism + SIADH. Non compliant with fluid restriction was placed on Na liberal diet and NaCl tablets. not on nacl tablets currently na 132 today DYSPHAGIA History of esophageal stricture, status post dilatation. GI consulted. VTE PROPHYLAXIS SCD's. Ambulate. DISPOSITION monitor in tele To be determined. Consult Case Management. . Patient says he dose not have any family doctor Vital Signs: Date Time Temp Pulse Resp B/P (MAP) Pulse Ox O2 Delivery O2 Flow Rate FiO2 09/05/17 16:32 37.0 63 14 165/96 (119) 95 Room Air 09/05/17 16:00 97 Room Air 09/05/17 16:00 97 Room Air 09/05/17 15:10 36.7 74 19 159/83 (108) 97 Room Air 09/05/17 12:00 98 Room Air 09/05/17 11:30 36.9 52 14 181/98 (125) 98 Room Air 09/05/17 08:35 Room Air 09/05/17 08:17 36.3 74 16 183/110 (134) 99 Room Air 09/05/17 07:20 36.8 74 20 164/92 (116) 95 Room Air 09/05/17 04:00 Room Air 09/05/17 04:00 96 Room Air 09/05/17 03:07 36.9 64 18 154/104 (121) 96 Room Air 09/05/17 00:30 Room Air 09/04/17 23:20 37.1 64 18 161/87 (111) 95 Room Air 09/04/17 19:48 37.1 79 24 200/96 99 Room Air 09/04/17 19:29 81 20 176/108 95 09/04/17 19:13 81 20 176/108 95 Room Air 09/04/17 18:20 95 20 165/95 Lab Results: Results Past 24 Hours Test 09/04/17 23:27 09/05/17 06:56 Range/Units Bedside Glucose 125 70-99 mg/dl White Blood Count 6.93 4.8-10.8 K/uL Red Blood Count 4.49 4.7-6.1 M/uL Hemoglobin 14.4 14.0-18.0 g/dL Hematocrit 41.0 42-52 % Mean Corpuscular Volume 91.3 80-100 fL Mean Corpuscular Hemoglobin 32.1 25-34 pg Mean Corpuscular Hemoglobin Concent 35.1 32-36 g/dl RDW Standard Deviation 54.4 36.4-46.3 fL RDW Coefficient of Variation 16.5 11.5-14.5 % Platelet Count 281 130-400 K/uL Mean Platelet Volume 8.2 7.4-10.4 fL Sodium Level 132 136-145 mmol/L Potassium Level 3.5 3.5-5.1 mmol/L Chloride Level 96 98-107 mmol/L Carbon Dioxide Level 26 21-32 mmol/L Anion Gap 10.0 3-11 mmol/L Blood Urea Nitrogen 4 7-18 mg/dl Creatinine 0.54 0.60-1.40 mg/dl Est Creatinine Clear Calc Drug Dose 134.0 ml/min Estimated GFR () 138.9 Estimated GFR (Non- 119.9 BUN/Creatinine Ratio 7.0 10-20 Random Glucose 106 70-99 mg/dl Calcium Level 9.0 8.5-10.1 mg/dl Phosphorus Level 3.1 2.5-4.9 mg/dl Magnesium Level 1.8 1.8-2.4 mg/dl
[2017-09-05] MEDS: GABAPENTIN 400MG Q8H DOSE PO SCH (21:34)
[2017-09-06] VITALS (9 sets, daily range): BP systolic 130–177; BP diastolic 81–100; PULSE 67–88; TEMP 36.4–36.9; O2SAT 97–99
[2017-09-06] MEDS: GABAPENTIN 400MG Q8H DOSE PO SCH ×2 (05:57→14:02)
[2017-09-06] MEDS: LORAZEPAM 2 MG/ML 1 ML VIAL IV PRN ×4 (06:01→18:07)
[2017-09-06] MEDS: LORAZEPAM 1 MG TAB PO PRN (08:12)
[2017-09-06] MEDS ORDERED: CLONIDINE HCL 0.1 MG TAB PO PRN (08:15)
[2017-09-06] MEDS: MULTI-VITAMIN INFUSION INJ 10 ML, THIAMINE HCL INJ 100 MG, FoLIC ACID INJ 1 MG in SODIU... IV SCH (08:48)
[2017-09-06 08:53] LABS: CALCIUM 8.5 mg/dl (8.5-10.1); CREATININE 0.75 mg/dl (0.60-1.40); POTASSIUM 2.9 mmol/L (3.5-5.1)
[2017-09-06] MEDS: MAGNESIUM SULFATE 1GM / D5W 1 GM in PREMIXED IN D5W 100 ML IV SCH ×2 (10:00→11:12)
[2017-09-06] MEDS ORDERED: POTASSIUM CHLORIDE 20 MEQ/15 ML UDC PO ONE (10:00)
--- NOTE | 2017-09-06 10:41 | Gastrointestinal Consultation ---
Gastrointestinal Consultation Date of Consultation: Sep 06, 2017 Attending Physician: Dr. Dalton Consulting Physician: Dr. Peck Reason for Consultation: esophageal stricture History of Present Illness Patient is a 52 year old male patient of Dr. Jorgensen with a long hx of increased alcohol intake, HTN, esophageal stricture, esophageal candidiasis who presented to the ED on 09/04 for dizziness and falls. He admits to drinking 6-8 alcoholic roni/day. GI is consulted for esophageal stricture. This was endoscopically dilated in Mar and Apr 2017 (max to 1cm). The pt tells me that his symptoms were improved from that time until about 1 1/2 weeks ago when symptoms recurred. Currently, he is able to swallow water but no solid foods as they "get stuck." he points to his neck to describe the area where the food is stuck. He denies significant pain. No blood in stools and no vomiting. Past Medical/Surgical History Medical Problems: (1) Abnormal ECG Status: Acute (2) Alcohol dependence Status: Acute (3) Alcohol intoxication Status: Acute (4) Alcohol withdrawal Status: Acute (5) Alcoholism Status: Chronic (6) Ambulatory dysfunction Status: Chronic (7) Anemia Status: Acute (8) Ataxia Status: Acute (9) Ataxia Status: Acute (10) Closed left clavicular fracture Status: Acute (11) Elbow fracture, left Status: Acute (12) Fall as cause of accidental injury in residential institution as place of occurrence Status: Acute (13) Generalized weakness Status: Acute (14) Hip pain, right Status: Acute (15) Homeless Status: Acute (16) Hypokalemia Status: Acute (17) Hypophosphatemia Status: Acute (18) Hypotension Status: Acute (19) Intertrochanteric fracture of right hip Status: Acute (20) Malnutrition Status: Acute (21) Pneumonia Status: Acute Family History Hypertension Social History Smoking Status: Former Smoker Alcohol Use: heavy Drug Use: none Marital Status: single Housing Status: other Occupation Status: unemployed Allergies Coded Allergies: Penicillins (Verified Adverse Reaction, Mild, TIRED, 09/04/17) Current Medications Home Meds and Scripts Medications Dose Route/Sig Max Daily Dose Days Date Category No Active Prescriptions or Reported Medications Rx Review of Systems Constitutional: + weakness, + problem reported (falls, ambulatory dysfunction) , No fever, No chills ENT: + hearing loss (chronic) Respiratory: No cough Abdomen: + dysphagia, No pain, No nausea, No vomiting, No diarrhea, No constipation, No GI bleeding Musculoskeletal: No joint pain Male : No dysuria Neuro: + problem reported (he is vague regarding his history. Responses are all very non specific but he is oriented to person, place, time. ) Psych: + substance abuse (alcohol), No depression symptoms Endo: + fatigue Skin: No rash, No jaundice Physical Exam Date Time Temp Pulse Resp B/P (MAP) Pulse Ox O2 Delivery O2 Flow Rate FiO2 09/06/17 08:48 Room Air 09/06/17 08:00 98 Room Air 09/06/17 07:31 36.4 81 16 171/100 (123) 98 09/06/17 07:12 36.7 88 20 159/94 (115) 97 Room Air 09/06/17 04:00 Room Air 09/06/17 02:37 36.7 73 17 177/97 (123) 97 Room Air 175/88 (117) 09/05/17 23:59 Room Air 09/05/17 23:48 37.0 74 17 165/95 (118) 97 Room Air 09/05/17 20:00 Room Air 09/05/17 19:29 36.9 71 20 162/100 (120) 95 Room Air 09/05/17 16:32 37.0 63 14 165/96 (119) 95 Room Air 09/05/17 16:00 97 Room Air 09/05/17 16:00 97 Room Air 09/05/17 15:10 36.7 74 19 159/83 (108) 97 Room Air 09/05/17 12:00 98 Room Air 09/05/17 11:30 36.9 52 14 181/98 (125) 98 Room Air General Appearance: no apparent distress Eyes: normal inspection, EOMI Neck: supple, no adenopathy, thyroid normal, no JVD Respiratory/Chest: chest non-tender, lungs clear, normal breath sounds, no accessory muscle use Cardiovascular: regular rate, rhythm, no JVD, no murmur Abdomen: normal bowel sounds, non tender, soft, no organomegaly Extremities: normal inspection, no pedal edema, normal capillary refill Neurologic/Psych: alert, normal mood/affect, oriented x 3 Skin: normal color, no jaundice, warm/dry, no rash, + pertinent finding (Ian' s nails) Laboratory Results Last 24 Hours Test 09/06/17 07:56 Sodium Level 126 mmol/L Potassium Level 2.9 mmol/L Chloride Level 89 mmol/L Carbon Dioxide Level 28 mmol/L Anion Gap 9.0 mmol/L Blood Urea Nitrogen 2 mg/dl Creatinine 0.75 mg/dl Est Creatinine Clear Calc Drug Dose 96.7 ml/min Estimated GFR () 121.4 Estimated GFR (Non- 104.7 BUN/Creatinine Ratio 2.3 Random Glucose 91 mg/dl Calcium Level 8.5 mg/dl Magnesium Level 1.5 mg/dl Impression Patient is a 52 year old male with dysphagia secondary to previously known esophageal stricture. Plan Plan: 1. Given hx of tight esophageal stricture, and the fact that one EGD and dil will not resolve his issue and his active withdrawal, we recommend continue his soft only diet and his scheduled repeat dilations can be done with his regular providers. He is tolerating soft foods and liquids. I performed a history and physical examination of the patient. I have discussed the patient's case, impression and plan with LEILA Walsh. Her note reflects my findings and plan. It usually takes multiple serial dilations over weeks/months to adequately treat these strictures. He is at high risk at this point so we recommend continued soft diet and will set him up with his regular providers as soon as he is discharged. Lawrence Peck MD
[2017-09-06] MEDS: POTASSIUM CHLR 10 MEQ / WTR 10 MEQ in PREMIXED WATER 100 ML IV SCH ×2 (12:00→14:03)
--- NOTE | 2017-09-06 17:13 | Progress Note ---
Internal Med Progress Note Date of Service: Sep 06, 2017. Provider Documentation: SUBJECTIVE: resting comfortably denies any chest pain or sob afebrile says he is having difficulty with sold foods as he has history of oesophageal stricture and wanst it to be dilated no cough no nausea OBJECTIVE: Vital Signs-as noted below Exam: General-alert and oriented.. Not in distress ENT-normal hearing Neck-no neck masses Lungs-cta b/l no wheezing or crackles Heart-s1 and s2 heard regular rate and rhythm no murmurs Abdomen-soft bowel sounds present non tender no distension Extremities-no edema no erythema Neuro-alert and awake moves extremities Lab data as noted below. ASSESSMENT & PLAN: ALCOHOLISM / ALCOHOL WITHDRAWAL Presents with worsening ataxia and severe tremors. hx of alcoholism Blood alcohol level 83 on presentation. Alcohol withdrawal protocol with gabapentin and Ativan thiamine, folate, multivitamins. counselling. ATAXIA / AMBULATORY DYSFUNCTION Recurrent ataxia with severe ambulatory dysfunction. 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 Ataxia and gait dysfunction seems improved significantly during last hospital stay, probably due to abstinence from alcohol and administration of thiamine and other vitamins. Will resume PT/OT when able. HYPONATREMIA Serum sodium was as low as 121 during last hospital stay. Most likely secondary to decrease electrolyte intake due to alcoholism + SIADH. Non compliant with fluid restriction was placed on Na liberal diet and NaCl tablets. not on nacl tablets currently na 126 today stopped fluids f/u labs HTN from withdrawal placed on clonidine prn will monitor DYSPHAGIA History of esophageal stricture, status post dilatation. GI consulted - recommends to f/u with regular providers as he currently tolerating soft diet placed on mechanical sof diet. will monitor VTE PROPHYLAXIS SCD's. Ambulate. DISPOSITION monitor in tele To be determined. Consult Case Management. . Patient says he dose not have any family doctor Vital Signs: Date Time Temp Pulse Resp B/P (MAP) Pulse Ox O2 Delivery O2 Flow Rate FiO2 09/06/17 16:00 Room Air 09/06/17 15:18 36.8 71 16 158/99 (118) 99 Room Air 09/06/17 12:00 98 Room Air 09/06/17 12:00 79 09/06/17 10:49 36.9 67 20 130/81 (97) 97 09/06/17 08:48 Room Air 09/06/17 08:00 98 Room Air 09/06/17 07:31 36.4 81 16 171/100 (123) 98 09/06/17 07:12 36.7 88 20 159/94 (115) 97 Room Air 09/06/17 04:00 Room Air 09/06/17 02:37 36.7 73 17 177/97 (123) 97 Room Air 175/88 (117) 09/05/17 23:59 Room Air 09/05/17 23:48 37.0 74 17 165/95 (118) 97 Room Air 09/05/17 20:00 Room Air 09/05/17 19:29 36.9 71 20 162/100 (120) 95 Room Air Lab Results: Results Past 24 Hours Test 09/06/17 07:56 09/06/17 10:06 Range/Units Sodium Level 126 136-145 mmol/L Potassium Level 2.9 3.5-5.1 mmol/L Chloride Level 89 98-107 mmol/L Carbon Dioxide Level 28 21-32 mmol/L Anion Gap 9.0 3-11 mmol/L Blood Urea Nitrogen 2 7-18 mg/dl Creatinine 0.75 0.60-1.40 mg/dl Est Creatinine Clear Calc Drug Dose 96.7 ml/min Estimated GFR () 121.4 Estimated GFR (Non- 104.7 BUN/Creatinine Ratio 2.3 10-20 Random Glucose 91 70-99 mg/dl Calcium Level 8.5 8.5-10.1 mg/dl Magnesium Level 1.5 1.8-2.4 mg/dl Osmolality 257 280-300 mOsm/kg
[2017-09-07] VITALS (10 sets, daily range): BP systolic 124–158; BP diastolic 85–100; PULSE 75–83; TEMP 36.3–36.8; O2SAT 97–98
[2017-09-07] MEDS: GABAPENTIN 400MG Q12H DOSE PO SCH ×2 (00:06→14:58)
[2017-09-07] MEDS: ACETAMINOPHEN 325 MG TAB PO PRN ×4 (00:36→23:49)
[2017-09-07 07:42] LABS: CALCIUM 8.4 mg/dl (8.5-10.1); CREATININE 0.58 mg/dl (0.60-1.40); POTASSIUM 3.4 mmol/L (3.5-5.1)
[2017-09-07] MEDS: CEROVITE ADV FORMULA TAB PO SCH (07:49)
[2017-09-07] MEDS: THIAMINE HCL 50 MG TAB PO SCH (07:49)
[2017-09-07] MEDS ORDERED: POTASSIUM CHLORIDE 10 MEQ TABCR PO STA (10:05)
--- NOTE | 2017-09-07 14:49 | Progress Note ---
Internal Med Progress Note Date of Service: Sep 07, 2017. Provider Documentation: SUBJECTIVE: The patient was seen and examined Generally weak and unsteady on gait Denies any other symptoms OBJECTIVE: Vital Signs-as noted below Exam: General-No distress at rest Eyes-normal ENT-Normal Neck-Supple Lungs-Clear to ausucltate bilaterally Heart-Regular,no murmur Abdomen-Benign,no masses,bowel sound present Extremities-No edema Neuro-AAOx3 Minimal tremors on outstretched hands Lab data as noted below. ASSESSMENT & PLAN: ALCOHOLISM with ALCOHOL WITHDRAWAL Presents with worsening ataxia and severe tremors. Blood alcohol level 83 on presentation. Alcohol withdrawal protocol with gabapentin and Ativan Has been on Thiamine, Folate, Multivitamins. Social Service on board ATAXIA / AMBULATORY DYSFUNCTION::secondary to Alcoholism Recurrent ataxia with severe ambulatory dysfunction. 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 Ataxia and gait dysfunction seems improved significantly during last hospital stay, probably due to abstinence from alcohol and administration of thiamine and other vitamins. Get PT/OT HYPONATREMIA Serum sodium was as low as 121 during last hospital stay. Most likely secondary to decrease electrolyte intake due to alcoholism + SIADH. Non compliant with fluid restriction Was placed on Na liberal diet and NaCl tablets. Sodium 127 today HTN From withdrawal of Alcohol Placed on clonidine prn DYSPHAGIA History of esophageal stricture, status post dilatation. GI consulted - recommends to f/u with regular providers as he currently tolerating soft diet placed on mechanical soft diet. will monitor VTE PROPHYLAXIS SCD's. Ambulate. DISPOSITION monitor in tele To be determined. Consult Case Management. . Patient says he dose not have any family doctor Vital Signs: Date Time Temp Pulse Resp B/P (MAP) Pulse Ox O2 Delivery O2 Flow Rate FiO2 09/07/17 12:00 98 Room Air 09/07/17 12:00 Room Air 09/07/17 11:15 36.8 76 16 124/86 (99) 97 Room Air 09/07/17 08:25 Room Air 09/07/17 08:00 98 Room Air 09/07/17 07:02 36.8 83 16 138/85 (102) 98 Room Air 09/07/17 04:00 98 Room Air 09/07/17 02:48 36.3 76 18 153/95 (114) 98 Room Air 09/07/17 00:00 98 Room Air 09/06/17 23:06 36.7 82 18 146/94 (111) 98 Room Air 09/06/17 20:00 Room Air 09/06/17 19:23 36.6 83 20 143/95 (111) 99 Room Air 09/06/17 16:00 Room Air 09/06/17 15:18 36.8 71 16 158/99 (118) 99 Room Air Lab Results: Results Past 24 Hours Test 09/07/17 00:00 09/07/17 06:33 Range/Units Urine Osmolality 430 500-800 mOms/kg Sodium Level 127 136-145 mmol/L Potassium Level 3.4 3.5-5.1 mmol/L Chloride Level 95 98-107 mmol/L Carbon Dioxide Level 23 21-32 mmol/L Anion Gap 9.0 3-11 mmol/L Blood Urea Nitrogen 5 7-18 mg/dl Creatinine 0.58 0.60-1.40 mg/dl Est Creatinine Clear Calc Drug Dose 126.0 ml/min Estimated GFR () 134.9 Estimated GFR (Non- 116.4 BUN/Creatinine Ratio 7.9 10-20 Random Glucose 85 70-99 mg/dl Calcium Level 8.4 8.5-10.1 mg/dl Magnesium Level 1.8 1.8-2.4 mg/dl
[2017-09-07] MEDS: LORAZEPAM 1 MG TAB PO PRN (19:16)
[2017-09-08] VITALS (11 sets, daily range): BP systolic 126–177; BP diastolic 82–104; PULSE 64–71; TEMP 36.4–36.9; O2SAT 97–99
[2017-09-08 07:40] LABS: HEMOGLOBIN 13.8 g/dL (14.0-18.0); MEAN CELL VOLUME 91.5 fL (80-100); MEAN CORPUSCULAR HEMOGLOBIN 31.6 pg (25-34); MEAN CORPUSCULAR HGB CONC 34.5 g/dl (32-36); MEAN PLATELET VOLUME 9.5 fL (7.4-10.4); PLATELET COUNT 176 K/uL (130-400); RED CELL DISTRIBUTION WIDTH CV 15.4 % (11.5-14.5); RED CELL DISTRIBUTION WIDTH SD 52.2 fL (36.4-46.3); WHITE BLOOD COUNT 8.28 K/uL (4.8-10.8)
[2017-09-08] MEDS: CEROVITE ADV FORMULA TAB PO SCH (08:05)
[2017-09-08] MEDS: THIAMINE HCL 50 MG TAB PO SCH (08:05)
[2017-09-08 08:06] LABS: CREATININE 0.58 mg/dl (0.60-1.40); POTASSIUM 3.4 mmol/L (3.5-5.1)
[2017-09-08 08:07] LABS: PHOSPHORUS 3.4 mg/dl (2.5-4.9)
[2017-09-08] MEDS ORDERED: POTASSIUM CHLORIDE 10 MEQ TABCR PO STA (09:10)
[2017-09-08] MEDS ORDERED: GABAPENTIN 400MG X1 DOSE PO SCH (12:00)
--- NOTE | 2017-09-08 16:51 | Progress Note ---
Internal Med Progress Note Date of Service: Sep 08, 2017. Provider Documentation: SUBJECTIVE: The patient was seen and examined Generally weak and unsteady on gait Denies any other symptoms Remains unsteady on feet OBJECTIVE: Vital Signs-as noted below Exam: General-No distress at rest Eyes-normal ENT-Normal Neck-Supple Lungs-Clear to ausucltate bilaterally Heart-Regular,no murmur Abdomen-Benign,no masses,bowel sound present Extremities-No edema Neuro-AAOx3 Minimal tremors on outstretched hands-almost gone Lab data as noted below. ASSESSMENT & PLAN: ALCOHOLISM with ALCOHOL WITHDRAWAL Presents with worsening ataxia and severe tremors. Blood alcohol level 83 on presentation. Alcohol withdrawal protocol with gabapentin and Ativan Has been on Thiamine, Folate, Multivitamins. Social Service on board No withdrawal symptoms ATAXIA / AMBULATORY DYSFUNCTION::secondary to Alcoholism Recurrent ataxia with severe ambulatory dysfunction. 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 Ataxia and gait dysfunction seems improved significantly during last hospital stay, probably due to abstinence from alcohol and administration of thiamine and other vitamins. Get PT/OT-ongoing HYPONATREMIA Serum sodium was as low as 121 during last hospital stay. Most likely secondary to decrease electrolyte intake due to alcoholism + SIADH. Non compliant with fluid restriction Was placed on Na liberal diet and NaCl tablets. Sodium 126 today -09/08/17 Will add Sodium Tabs HTN From withdrawal of Alcohol Placed on clonidine prn Controlled DYSPHAGIA History of esophageal stricture, status post dilatation. GI consulted - recommends to f/u with regular providers as he currently tolerating soft diet placed on mechanical soft diet. will monitor VTE PROPHYLAXIS SCD's. Ambulate. DISPOSITION monitor in tele To be determined. Consult Case Management. . Patient says he dose not have any family doctor Vital Signs: Date Time Temp Pulse Resp B/P (MAP) Pulse Ox O2 Delivery O2 Flow Rate FiO2 09/08/17 14:55 36.8 70 20 126/85 (99) 98 Room Air 09/08/17 12:00 Room Air 09/08/17 11:18 36.8 64 16 137/82 (100) 98 Room Air 09/08/17 08:00 Room Air 09/08/17 07:29 36.4 70 16 164/98 (120) 99 Room Air 09/08/17 04:00 Room Air 09/08/17 03:37 36.9 69 17 163/93 (116) 97 Room Air 09/07/17 23:59 Room Air 09/07/17 23:12 36.7 76 17 158/100 (119) 98 Room Air 09/07/17 20:00 Room Air 09/07/17 19:54 36.8 75 20 148/86 (106) 97 Room Air Lab Results: Results Past 24 Hours Test 09/08/17 07:10 Range/Units White Blood Count 8.28 4.8-10.8 K/uL Red Blood Count 4.37 4.7-6.1 M/uL Hemoglobin 13.8 14.0-18.0 g/dL Hematocrit 40.0 42-52 % Mean Corpuscular Volume 91.5 80-100 fL Mean Corpuscular Hemoglobin 31.6 25-34 pg Mean Corpuscular Hemoglobin Concent 34.5 32-36 g/dl RDW Standard Deviation 52.2 36.4-46.3 fL RDW Coefficient of Variation 15.4 11.5-14.5 % Platelet Count 176 130-400 K/uL Mean Platelet Volume 9.5 7.4-10.4 fL Sodium Level 126 136-145 mmol/L Potassium Level 3.4 3.5-5.1 mmol/L Chloride Level 91 98-107 mmol/L Carbon Dioxide Level 28 21-32 mmol/L Anion Gap 7.0 3-11 mmol/L Blood Urea Nitrogen 6 7-18 mg/dl Creatinine 0.58 0.60-1.40 mg/dl Est Creatinine Clear Calc Drug Dose 126.0 ml/min Estimated GFR () 134.9 Estimated GFR (Non- 116.4 BUN/Creatinine Ratio 9.5 10-20 Random Glucose 97 70-99 mg/dl Calcium Level 9.0 8.5-10.1 mg/dl Phosphorus Level 3.4 2.5-4.9 mg/dl Magnesium Level 1.8 1.8-2.4 mg/dl
[2017-09-08] MEDS: ACETAMINOPHEN 325 MG TAB PO PRN (20:03)
[2017-09-08] MEDS ORDERED: CLONIDINE HCL 0.1 MG TAB PO PRN (20:45)
[2017-09-08] MEDS: SODIUM CHLORIDE 1 GM TAB PO SCH (20:52)
[2017-09-09 07:24] VITALS: BP 149/96; PULSE 64; TEMP 36.5; O2SAT 96
[2017-09-09 08:37] VITALS: BP 170/121; PULSE 80
[2017-09-09] MEDS: ACETAMINOPHEN 325 MG TAB PO PRN ×3 (08:38→19:29)
[2017-09-09] MEDS: SODIUM CHLORIDE 1 GM TAB PO SCH ×2 (08:38→19:29)
[2017-09-09] MEDS: CEROVITE ADV FORMULA TAB PO SCH (08:39)
[2017-09-09] MEDS: THIAMINE HCL 50 MG TAB PO SCH (08:39)
[2017-09-09 09:49] VITALS: BP 131/84; PULSE 71
--- NOTE | 2017-09-09 14:04 | Progress Note ---
Internal Med Progress Note Date of Service: Sep 09, 2017. Provider Documentation: SUBJECTIVE: The patient was seen and examined Generally weak and unsteady on gait Denies any other symptoms Remains unsteady on feet Getting PT and gradually getting better Not yet ready to be discharged OBJECTIVE: Vital Signs-as noted below Exam: General-No distress at rest Eyes-normal ENT-Normal Neck-Supple Lungs-Clear to ausucltate bilaterally Heart-Regular,no murmur Abdomen-Benign,no masses,bowel sound present Extremities-No edema Neuro-AAOx3 Minimal tremors on outstretched hands-almost gone Lab data as noted below. ASSESSMENT & PLAN: ALCOHOLISM with ALCOHOL WITHDRAWAL Presents with worsening ataxia and severe tremors. Blood alcohol level 83 on presentation. Alcohol withdrawal protocol with gabapentin and Ativan Has been on Thiamine, Folate, Multivitamins. Social Service on board No withdrawal symptoms Remains unsteady ATAXIA / AMBULATORY DYSFUNCTION::secondary to Alcoholism Recurrent ataxia with severe ambulatory dysfunction. 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 Ataxia and gait dysfunction seems improved significantly during last hospital stay, probably due to abstinence from alcohol and administration of thiamine and other vitamins. Get PT/OT-ongoing and showing a little improvement HYPONATREMIA Serum sodium was as low as 121 during last hospital stay. Most likely secondary to decrease electrolyte intake due to alcoholism + SIADH. Non compliant with fluid restriction Was placed on Na liberal diet and NaCl tablets. Sodium 126 today -09/08/17 Will add Sodium Tabs Will check tomorrow HTN From withdrawal of Alcohol Placed on clonidine prn Controlled DYSPHAGIA History of esophageal stricture, status post dilatation. GI consulted - recommends to f/u with regular providers as he currently tolerating soft diet placed on mechanical soft diet. will monitor VTE PROPHYLAXIS SCD's. Ambulate. DISPOSITION monitor in tele To be determined. Consult Case Management. . Patient says he dose not have any family doctor Vital Signs: Date Time Temp Pulse Resp B/P (MAP) Pulse Ox O2 Delivery O2 Flow Rate FiO2 09/09/17 09:49 71 131/84 (100) 09/09/17 08:37 80 170/121 (137) 09/09/17 08:00 Room Air 09/09/17 07:24 36.5 64 18 149/96 (113) 96 Room Air 09/09/17 00:00 Room Air 09/08/17 23:20 36.7 67 18 162/89 (113) 98 Room Air 09/08/17 20:26 99 Room Air 09/08/17 19:57 71 18 09/08/17 19:56 164/98 (120) 164/92 (116) 09/08/17 19:31 36.6 69 16 177/104 (128) 99 Room Air 164/98 (120) 09/08/17 18:43 36.8 70 20 98 09/08/17 16:00 98 Room Air 09/08/17 14:55 36.8 70 20 126/85 (99) 98 Room Air
[2017-09-09 15:45] VITALS: BP 171/85; PULSE 62; TEMP 36.8; O2SAT 99
[2017-09-09 16:00] VITALS: O2SAT 99
[2017-09-10 00:11] VITALS: BP 149/91; PULSE 69; TEMP 37.2; O2SAT 99
[2017-09-10 07:52] VITALS: BP 153/95; PULSE 78; TEMP 36.9; O2SAT 97
[2017-09-10 08:10] VITALS: O2SAT 97
[2017-09-10 08:34] LABS: CALCIUM 8.9 mg/dl (8.5-10.1); CREATININE 0.51 mg/dl (0.60-1.40); POTASSIUM 3.7 mmol/L (3.5-5.1)
[2017-09-10] MEDS: SODIUM CHLORIDE 1 GM TAB PO SCH ×2 (09:39→20:59)
[2017-09-10] MEDS: THIAMINE HCL 50 MG TAB PO SCH (09:40)
[2017-09-10] MEDS: CEROVITE ADV FORMULA TAB PO SCH (09:40)
[2017-09-10] MEDS: ACETAMINOPHEN 325 MG TAB PO PRN ×2 (09:44→20:59)
--- NOTE | 2017-09-10 13:13 | Progress Note ---
Internal Med Progress Note Date of Service: Sep 10, 2017. Provider Documentation: SUBJECTIVE: The patient was seen and examined Generally weak and unsteady on gait Denies any other symptoms Remains unsteady on feet Getting PT and gradually getting better Not yet ready to be discharged Feels weak today OBJECTIVE: Vital Signs-as noted below Exam: General-No distress at rest Eyes-normal ENT-Normal Neck-Supple Lungs-Clear to ausucltate bilaterally Heart-Regular,no murmur Abdomen-Benign,no masses,bowel sound present Extremities-No edema Neuro-AAOx3 Minimal tremors on outstretched hands-almost gone Lab data as noted below. ASSESSMENT & PLAN: ALCOHOLISM with ALCOHOL WITHDRAWAL Presents with worsening ataxia and severe tremors. Blood alcohol level 83 on presentation. Alcohol withdrawal protocol with gabapentin and Ativan Has been on Thiamine, Folate, Multivitamins. Social Service on board No withdrawal symptoms Remains unsteady ATAXIA / AMBULATORY DYSFUNCTION::secondary to Alcoholism Recurrent ataxia with severe ambulatory dysfunction. 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 Ataxia and gait dysfunction seems improved significantly during last hospital stay, probably due to abstinence from alcohol and administration of thiamine and other vitamins. Get PT/OT-ongoing and showing a little improvement HYPONATREMIA Serum sodium was as low as 121 during last hospital stay. Most likely secondary to decrease electrolyte intake due to alcoholism + SIADH. Non compliant with fluid restriction Was placed on Na liberal diet and NaCl tablets. Sodium 126 today -09/08/17 Will add Sodium Tabs,has had Sodium tabs before Sodium remains low at 124 today Restrict water up to 1200 mls HTN From withdrawal of Alcohol Placed on clonidine prn Controlled DYSPHAGIA History of esophageal stricture, status post dilatation. GI consulted - recommends to f/u with regular providers as he currently tolerating soft diet placed on mechanical soft diet. will monitor OP appointment with GI VTE PROPHYLAXIS SCD's. Ambulate. DISPOSITION monitor in tele To be determined. Consult Case Management. . Patient says he dose not have any family doctor Vital Signs: Date Time Temp Pulse Resp B/P (MAP) Pulse Ox O2 Delivery O2 Flow Rate FiO2 09/10/17 08:10 97 Room Air 09/10/17 07:52 36.9 78 20 153/95 (114) 97 Room Air 09/10/17 00:11 37.2 69 16 149/91 (110) 99 Room Air 09/09/17 23:50 Room Air 09/09/17 16:00 99 Room Air 09/09/17 15:45 36.8 62 18 171/85 (693) 99 Lab Results: Results Past 24 Hours Test 09/10/17 07:49 Range/Units Sodium Level 124 136-145 mmol/L Potassium Level 3.7 3.5-5.1 mmol/L Chloride Level 88 98-107 mmol/L Carbon Dioxide Level 27 21-32 mmol/L Anion Gap 9.0 3-11 mmol/L Blood Urea Nitrogen 6 7-18 mg/dl Creatinine 0.51 0.60-1.40 mg/dl Est Creatinine Clear Calc Drug Dose 143.3 ml/min Estimated GFR () 142.2 Estimated GFR (Non- 122.7 BUN/Creatinine Ratio 11.5 10-20 Random Glucose 100 70-99 mg/dl Calcium Level 8.9 8.5-10.1 mg/dl Magnesium Level 1.8 1.8-2.4 mg/dl
[2017-09-10 14:56] VITALS: BP 130/79; PULSE 67; TEMP 37; O2SAT 96
[2017-09-10 16:00] VITALS: O2SAT 96
[2017-09-10 23:41] VITALS: BP 159/90; PULSE 64; TEMP 36.7; O2SAT 96
[2017-09-11 06:46] LABS: HEMATOCRIT 39.2 % (42-52); MEAN CELL VOLUME 90.1 fL (80-100); MEAN CORPUSCULAR HEMOGLOBIN 32.2 pg (25-34); MEAN CORPUSCULAR HGB CONC 35.7 g/dl (32-36); MEAN PLATELET VOLUME 8.6 fL (7.4-10.4); PLATELET COUNT 191 K/uL (130-400); RED CELL DISTRIBUTION WIDTH CV 15.6 % (11.5-14.5); RED CELL DISTRIBUTION WIDTH SD 52.3 fL (36.4-46.3); WHITE BLOOD COUNT 7.22 K/uL (4.8-10.8)
[2017-09-11 07:21] LABS: CALCIUM 9.1 mg/dl (8.5-10.1); CREATININE 0.61 mg/dl (0.60-1.40); POTASSIUM 4.2 mmol/L (3.5-5.1)
[2017-09-11 07:31] VITALS: BP 154/89; PULSE 66; TEMP 36.9; O2SAT 96
[2017-09-11] MEDS: CEROVITE ADV FORMULA TAB PO SCH (08:33)
[2017-09-11] MEDS: THIAMINE HCL 50 MG TAB PO SCH (08:34)
[2017-09-11] MEDS: ACETAMINOPHEN 325 MG TAB PO PRN (08:50)
[2017-09-11] MEDS ORDERED: SODIUM CHLORIDE 1 GM TAB PO ONE (10:57)
[2017-09-11 15:54] VITALS: BP 138/63; PULSE 72; TEMP 36.8; O2SAT 98
[2017-09-11 15:56] VITALS: BP 138/63; PULSE 72; TEMP 36.8; O2SAT 95
[2017-09-11] MEDS: SODIUM CHLORIDE 1 GM TAB PO SCH (21:32)
[2017-09-12 01:00] VITALS: BP 151/85; PULSE 61; TEMP 37.1; O2SAT 95
[2017-09-12 07:46] LABS: BLOOD UREA NITROGEN 10 mg/dl (7-18); CALCIUM 8.6 mg/dl (8.5-10.1); CARBON DIOXIDE 22 mmol/L (21-32); CREATININE 0.57 mg/dl (0.60-1.40); GLUCOSE 78 mg/dl (70-99); SODIUM 124 mmol/L (136-145)
[2017-09-12 07:59] VITALS: BP 154/82; PULSE 59; TEMP 36.9; O2SAT 97
[2017-09-12 08:30] LABS: POTASSIUM 4.1 mmol/L (3.5-5.1)
[2017-09-12] MEDS: SODIUM CHLORIDE 1 GM TAB PO SCH ×2 (09:06→20:01)
[2017-09-12] MEDS: THIAMINE HCL 50 MG TAB PO SCH (09:06)
[2017-09-12] MEDS: CEROVITE ADV FORMULA TAB PO SCH (09:07)
--- NOTE | 2017-09-12 09:32 | Progress Note ---
Internal Med Progress Note Date of Service: Sep 12, 2017. Provider Documentation: This is a bill from 09/11/17 SUBJECTIVE: The patient was seen and examined Generally weak and unsteady on gait Denies any other symptoms Remains unsteady on feet Getting PT and gradually getting better Not yet ready to be discharged Sodium remains low OBJECTIVE: Vital Signs-as noted below Exam: General-No distress at rest Eyes-normal ENT-Normal Neck-Supple Lungs-Clear to ausucltate bilaterally Heart-Regular,no murmur Abdomen-Benign,no masses,bowel sound present Extremities-No edema Neuro-AAOx3 Minimal tremors on outstretched hands-almost gone Lab data as noted below. ASSESSMENT & PLAN: ALCOHOLISM with ALCOHOL WITHDRAWAL Presents with worsening ataxia and severe tremors. Blood alcohol level 83 on presentation. Alcohol withdrawal protocol with gabapentin and Ativan Has been on Thiamine, Folate, Multivitamins. Social Service on board No withdrawal symptoms Remains unsteady on feet Continue Physical Therapy ATAXIA / AMBULATORY DYSFUNCTION::secondary to Alcoholism Recurrent ataxia with severe ambulatory dysfunction. 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 Ataxia and gait dysfunction seems improved significantly during last hospital stay, probably due to abstinence from alcohol and administration of thiamine and other vitamins. Get PT/OT-ongoing and showing a little improvement HYPONATREMIA Serum sodium was as low as 121 during last hospital stay. Most likely secondary to decrease electrolyte intake due to alcoholism + SIADH. Non compliant with fluid restriction Was placed on Na liberal diet and NaCl tablets. Sodium 126 today -09/08/17 Will add Sodium Tabs,has had Sodium tabs before Sodium remains low at 124 today Restrict water up to 1200 mls Sodium 125 today Likely to be discharged tomorrow HTN From withdrawal of Alcohol Placed on clonidine prn Controlled DYSPHAGIA History of esophageal stricture, status post dilatation. GI consulted - recommends to f/u with regular providers as he currently tolerating soft diet placed on mechanical soft diet. will monitor OP appointment with GI VTE PROPHYLAXIS SCD's. Ambulate. DISPOSITION monitor in tele To be determined. Consult Case Management. . Patient says he dose not have any family doctor Vital Signs: Date Time Temp Pulse Resp B/P (MAP) Pulse Ox O2 Delivery O2 Flow Rate FiO2 09/12/17 07:59 36.9 59 18 154/82 (106) 97 Room Air 09/12/17 01:00 37.1 61 18 151/85 (107) 95 Room Air 09/12/17 00:14 Room Air 09/11/17 15:56 36.8 72 17 138/63 (88) 95 Room Air 09/11/17 15:54 36.8 72 18 138/63 (88) 98 Room Air 09/11/17 15:30 Room Air Lab Results: Results Past 24 Hours Test 09/12/17 06:40 09/12/17 07:58 Range/Units Sodium Level 124 136-145 mmol/L Potassium Level 4.1 3.5-5.1 mmol/L Chloride Level 93 98-107 mmol/L Carbon Dioxide Level 22 21-32 mmol/L Anion Gap 9.0 3-11 mmol/L Blood Urea Nitrogen 10 7-18 mg/dl Creatinine 0.57 0.60-1.40 mg/dl Est Creatinine Clear Calc Drug Dose 128.3 ml/min Estimated GFR () 135.9 Estimated GFR (Non- 117.2 BUN/Creatinine Ratio 16.8 10-20 Random Glucose 78 70-99 mg/dl Calcium Level 8.6 8.5-10.1 mg/dl Magnesium Level 2.0 1.8-2.4 mg/dl
--- NOTE | 2017-09-12 10:10 | Progress Note ---
Internal Med Progress Note Date of Service: Sep 12, 2017. Provider Documentation: SUBJECTIVE: The patient was seen and examined Generally weak and unsteady on gait Ambulating with walker wants to be discharged Sodium remains low -124 today OBJECTIVE: Vital Signs-as noted below Exam: General-No distress at rest Eyes-normal ENT-Normal Neck-Supple Lungs-Clear to ausucltate bilaterally Heart-Regular,no murmur Abdomen-Benign,no masses,bowel sound present Extremities-No edema Neuro-AAOx3 No signs of withdrawal Lab data as noted below. ASSESSMENT & PLAN: HYPONATREMIA Serum sodium was as low as 121 during last hospital stay. Most likely secondary to decrease electrolyte intake due to alcoholism + SIADH. Non compliant with fluid restriction Was placed on Na liberal diet and NaCl tablets. Sodium 126 today -09/08/17 Has been on salt tabs and fluid restriction No improvement in sodium level will try NS 1000 mls only with IV Lasix of 40 Check level tomorrow -can be discharged if sodium is trending up Clinically stable Ambulating with walker-Prescription for walker provided ALCOHOLISM with ALCOHOL WITHDRAWAL Presents with worsening ataxia and severe tremors. Blood alcohol level 83 on presentation. Alcohol withdrawal protocol with gabapentin and Ativan Has been on Thiamine, Folate, Multivitamins. Social Service on board No withdrawal symptoms Remains unsteady on feet Continue Physical Therapy ATAXIA / AMBULATORY DYSFUNCTION::secondary to Alcoholism Recurrent ataxia with severe ambulatory dysfunction. 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 Ataxia and gait dysfunction seems improved significantly during last hospital stay, probably due to abstinence from alcohol and administration of thiamine and other vitamins. Get PT/OT-ongoing and showing a little improvement Walker provided as per PT recommendation HTN From withdrawal of Alcohol Placed on clonidine prn Controlled DYSPHAGIA History of esophageal stricture, status post dilatation. GI consulted - recommends to f/u with regular providers as he currently tolerating soft diet placed on mechanical soft diet. will monitor OP appointment with GI VTE PROPHYLAXIS SCD's. Ambulate. DISPOSITION monitor in tele To be determined. Consult Case Management. . Patient says he dose not have any family doctor Vital Signs: Date Time Temp Pulse Resp B/P (MAP) Pulse Ox O2 Delivery O2 Flow Rate FiO2 09/12/17 07:59 36.9 59 18 154/82 (106) 97 Room Air 09/12/17 01:00 37.1 61 18 151/85 (107) 95 Room Air 09/12/17 00:14 Room Air 09/11/17 15:56 36.8 72 17 138/63 (88) 95 Room Air 09/11/17 15:54 36.8 72 18 138/63 (88) 98 Room Air 09/11/17 15:30 Room Air Lab Results: Results Past 24 Hours Test 09/12/17 06:40 09/12/17 07:58 Range/Units Sodium Level 124 136-145 mmol/L Potassium Level 4.1 3.5-5.1 mmol/L Chloride Level 93 98-107 mmol/L Carbon Dioxide Level 22 21-32 mmol/L Anion Gap 9.0 3-11 mmol/L Blood Urea Nitrogen 10 7-18 mg/dl Creatinine 0.57 0.60-1.40 mg/dl Est Creatinine Clear Calc Drug Dose 128.3 ml/min Estimated GFR () 135.9 Estimated GFR (Non- 117.2 BUN/Creatinine Ratio 16.8 10-20 Random Glucose 78 70-99 mg/dl Calcium Level 8.6 8.5-10.1 mg/dl Magnesium Level 2.0 1.8-2.4 mg/dl
[2017-09-12] MEDS ORDERED: FUROSEMIDE INJ 40 MG in SYRINGE 0 ML IV ONE (13:00)
[2017-09-12] MEDS ORDERED: SODIUM CHLORIDE 0.9% 1000ML 1,000 ML IV SCH (13:00)
[2017-09-12] MEDS: ACETAMINOPHEN 325 MG TAB PO PRN ×2 (14:59→20:47)
[2017-09-12 15:38] VITALS: BP 105/66; PULSE 84; TEMP 36.8; O2SAT 93
[2017-09-13] VITALS: BP 162/90; PULSE 58; TEMP 36.8; O2SAT 98
[2017-09-13 07:46] VITALS: BP 150/81; PULSE 64; TEMP 36.9; O2SAT 97
[2017-09-13] MEDS: THIAMINE HCL 50 MG TAB PO SCH (08:00)
[2017-09-13] MEDS: CEROVITE ADV FORMULA TAB PO SCH (08:00)
[2017-09-13] MEDS: SODIUM CHLORIDE 1 GM TAB PO SCH (08:00)
[2017-09-13 09:12] LABS: CALCIUM 8.6 mg/dl (8.5-10.1); CREATININE 0.48 mg/dl (0.60-1.40); POTASSIUM 3.7 mmol/L (3.5-5.1)
[2017-09-13] MEDS ORDERED: FUROSEMIDE 20 MG TAB PO ONE (10:00)
[2017-09-13 10:38] VITALS: BP 150/81; PULSE 64; TEMP 36.9; O2SAT 97
--- NOTE | 2017-09-13 14:09 | Progress Note ---
Medicine Progress Note Date & Time of Visit: Sep 13, 2017 at 13:49. Subjective Pt was seen and examined Lying in bed with no distress watching TV Pt said that he feels fine I told him today that if he does not stop drinking alcohol that the alcohol will kill him Pt said that he did not know about if the alcohol can kill him then he said that they have been telling him that but he is still alive Explained to him that the alcohol will damage his liver and lead to end stage liver disease and . Pt agreed to get home health services and physical therapy Denies and any chest pain, palpitation, dizziness and sob. Objective Last 8 Hrs Date Time Temp Pulse Resp B/P (MAP) Pulse Ox O2 Delivery O2 Flow Rate FiO2 09/13/17 10:38 36.9 64 16 97 Room Air 09/13/17 08:00 Room Air 09/13/17 07:46 36.9 64 16 150/81 (104) 97 Physical Exam: General- No acute distress Head- atraumatic Eyes- PERRL, EOMI ENT- oropharynx clear Neck- supple, no JVD Lungs- clear to auscultation Heart- regular rhythm Abdomen- normal bowel sounds, soft Extremities- no pretibial edema Neuro- alert, oriented x 3; PERRL, EOMI Skin- warm & dry Laboratory Results: Last 24 Hours Test 09/13/17 08:06 Sodium Level 128 mmol/L Potassium Level 3.7 mmol/L Chloride Level 95 mmol/L Carbon Dioxide Level 24 mmol/L Anion Gap 9.0 mmol/L Blood Urea Nitrogen 10 mg/dl Creatinine 0.48 mg/dl Est Creatinine Clear Calc Drug Dose 152.3 ml/min Estimated GFR () 145.8 Estimated GFR (Non- 125.8 BUN/Creatinine Ratio 20.0 Random Glucose 84 mg/dl Calcium Level 8.6 mg/dl Magnesium Level 1.9 mg/dl Assessment & Plan HYPONATREMIA Serum sodium was as low as 121 during last hospital stay. Most likely secondary to decrease electrolyte intake due to alcoholism + SIADH. Non compliant with fluid restriction Was placed on Na liberal diet and NaCl tablets. Sodium 126 today -09/08/17 Has been on salt tabs and fluid restriction No improvement in sodium level will try NS 1000 mls only with IV Lasix of 40 Check level tomorrow -can be discharged if sodium is trending up Clinically stable Ambulating with walker-Prescription for walker provided 09/13/17 Na 128 today Will give additional 20mg lasix today Continue salt tab Fluid restriction Continue monitor BMP ALCOHOLISM with ALCOHOL WITHDRAWAL Presents with worsening ataxia and severe tremors. Blood alcohol level 83 on presentation. Alcohol withdrawal protocol with gabapentin and Ativan Has been on Thiamine, Folate, Multivitamins. Social Service on board No withdrawal symptoms Remains unsteady on feet Continue Physical Therapy 09/13/17 Counseling on alcohol cessation Discussed with patient that alcohol will damage his liver if he does not stop drinking and Continue Thiamine, Folate and MVI ATAXIA / AMBULATORY DYSFUNCTION::secondary to Alcoholism Recurrent ataxia with severe ambulatory dysfunction. 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 Ataxia and gait dysfunction seems improved significantly during last hospital stay, probably due to abstinence from alcohol and administration of thiamine and other vitamins. Get PT/OT-ongoing and showing a little improvement Walker provided as per PT recommendation 09/13 Continue PT/OT Fall precaution Use your walker to ambulate HTN From withdrawal of Alcohol Placed on clonidine prn Controlled 09/13 BP has been fluctuates Continue Atenolol Stable DYSPHAGIA History of esophageal stricture, status post dilatation. GI consulted - recommends to f/u with regular providers as he currently tolerating soft diet placed on mechanical soft diet. will monitor OP appointment with GI VTE PROPHYLAXIS SCD's. Ambulate. DISPOSITION Discharge home with home health services Missed his last 6 appointment with his PCP Continue PT/OT Current Inpatient Medications: Current Inpatient Medications Medications (Trade) Dose Ordered Sig/Jaylene Route Start Time Stop Time Status Last Admin Dose Admin Atenolol (Tenormin Tab) 25 mg QAM PO 09/05/17 09:00 10/05/17 08:59 09/13/17 08:01 25 MG Lorazepam (Ativan Tab) PRN Dosing -Active Protocol UD PRN PO 09/04/17 19:00 10/04/17 18:59 09/07/17 19:16 1 MG Lorazepam (Ativan Inj) PRN Dosing -Active Protocol Q1H PRN IV 09/04/17 19:00 10/04/17 18:59 09/06/17 18:07 2 MG Acetaminophen (Tylenol Tab) 650 mg Q4H PRN PO 09/05/17 17:00 10/05/17 16:59 09/12/17 20:47 650 MG Thiamine HCl (Vitamin B-1 Tab) 50 mg QAM PO 09/07/17 09:00 10/07/17 08:59 09/13/17 08:00 50 MG Folic Acid (Folvite Tab) 1 mg QAM PO 09/07/17 09:00 10/07/17 08:59 09/13/17 08:00 1 MG Multivitamins/ Minerals (Multivitamin W/ Minerals Tab) 1 tab QAM PO 09/07/17 09:00 10/07/17 08:59 09/13/17 08:00 1 TAB Clonidine HCl (Catapres Tab) 0.1 mg Q4 PRN PO 09/08/17 20:45 10/06/17 08:14 09/08/17 20:53 0.1 MG Sodium Chloride (Sodium Chloride Tab) 1 gm BID PO 09/11/17 20:00 10/11/17 19:59 09/13/17 08:00 1 GM
[2017-09-13] MEDS ORDERED: SDMC1 PO ×2 (14:13→14:15)
[2017-09-13] MEDS ORDERED: THM50 PO (14:13)
[2017-09-13] MEDS ORDERED: FLV1 PO (14:13)
[2017-09-13] MEDS ORDERED: TNR25 PO (14:13)
--- NOTE | 2017-09-13 14:27 | Discharge Instructions ---
Discharge Instructions Date of Service Sep 13, 2017. Admission Reason for Admission: Alcohol Withdrawal, Ataxia Discharge Discharge Diagnosis / Problem: Alcohol abuse, Ambulatory dysfunction, Hypertension, Dysphagia,hyponatremia Discharge Goals Goal(s): Decrease discomfort, Improve function, Improve disease control Activity Recommendations Activity Limitations: resume your previous activity (as tolerated) . Instructions / Follow-Up Instructions / Follow-Up It is very important for you to call your primary care provider Dr. Jorgensen at [phone] to schedule a follow up appointment within 1 week ( You missed the last 6 follow up appointments) Please stop drinking alcohol. Alcohol will damage your liver and kill you if you don't stop drinking Continue physical therapy Use your walker for ambulation (script was given to you) Fall precaution Check BMP between 3 to 5 days to monitor your Sodium level Continue 1.5L Fluid restriction Follow up with gastro for your difficulty to swallow. Continue follow a mechanical soft diet Aspiration precaution Current Hospital Diet Patient's current hospital diet: Low Fiber Diet Discharge Diet Recommended Diet: Low Fiber Diet Diet Texture: Mechanical Soft (ground) Pending Studies Studies pending at discharge: no Laboratory Results Lipid Panel Test 06/13/17 10:04 Range/Units Triglycerides Level 59 0-150 mg/dl Cholesterol Level 195 0-200 mg/dl HDL Cholesterol 128 mg/dl Cholesterol/HDL Ratio 1.5 LDL Cholesterol, Calculated 55 mg/dl Medical Emergencies . Who to Call and When: Medical Emergencies: If at any time you feel your situation is an emergency, please call 911 immediately. . Non-Emergent Contact Non-Emergency issues call your: Primary Care Provider, Petrologist Call Non-Emergent contact if: you have any medication questions . . "Provider Documentation" section prepared by Chito Ennis. .
[2017-09-13] MEDS: ACETAMINOPHEN 325 MG TAB PO PRN (14:39)
--- NOTE | 2017-09-15 08:45 | Discharge Summary ---
Discharge Summary Date of Service Sep 15, 2017. Discharge Summary Admission Date: Sep 04, 2017 at 18:46 Discharge Date: Sep 13, 2017 Discharge Disposition: Home with services Principal Diagnosis: HYPONATREMIA Secondary Diagnoses/Problems: ALCOHOLISM with ALCOHOL WITHDRAWAL ATAXIA / AMBULATORY DYSFUNCTION DYSPHAGIA HTN Procedures: CT ANGIOGRAPHY HEAD COMBO CT DOSE: 664.43 mGy.cm CLINICAL HISTORY: Worsening dizziness, falls. TECHNIQUE: Unenhanced images were obtained the brain. The patient was then scanned in a dynamic helical fashion during intravenous administration of 93 cc Optiray 320. MIP imaging was performed. A dose lowering technique was utilized adhering to the principles of ALARA. COMPARISON STUDY: Noncontrast head CT dated 08/13/2017 FINDINGS: No intra or extra-axial mass lesions are visualized. There is no CT evidence of acute cortical infarction. There is no midline shift. There is no acute hemorrhage. There are atrophic changes most pronounced in the cerebellum. There is no acute sinusitis. CT angiographic images reveal no major intracranial branch occlusions. There are no lesions suspicious for aneurysm. There is no major intracranial stenosis. There is no evidence of dural venous sinus thrombosis. There are no pathologically enhancing masses. IMPRESSION: Unremarkable CT angiography of the brain Electronically signed by: Alejandro Lucas M.D. 09/04/2017 2:09 PM Dictated Date/Time: 09/04/2017 2:06 PM CHEST 2 VIEWS ROUTINE HISTORY: cough, lightheaded COMPARISON: Chest 08/13/2017. FINDINGS: Old, healed left-sided rib fractures are again noted. No pleural effusions. No pneumothorax. The heart is normal in size. Mildly tortuous thoracic aorta, unchanged. No focal lung consolidations to suggest pneumonia. No evidence for pulmonary edema. Minimal superior endplate anterior wedging within the mid thoracic spine vertebral body is likely old. IMPRESSION: No significant change compared to the prior study. No acute process. Electronically signed by: Jigar Cassidy M.D. 09/04/2017 1:18 PM Dictated Date/Time: 09/04/2017 1:09 PM Medication Reconciliation New Medications: Atenolol (Atenolol) 25 Mg Tab 25 MG PO QAM for 30 Days, TAB Folic Acid (Folic Acid) 1 Mg Tab 1 MG PO QAM for 30 Days, TAB Sodium Chloride (Sodium Chloride) 1 Gm Tab 1 GM PO BID for 7 Days, TAB Thiamine HCl (Vitamin B-1) 50 Mg Tab 50 MG PO QAM for 30 Days, TAB Admission Information HPI (per Admitting provider): 52-year-old male who has not received regular outpatient medical care. History of alcoholism, ataxia with ambulatory dysfunction and multiple falls, hypertension, and other problems noted below. Hospitalized at [facility] from 08/05/2017 through 08/27/17 with prolonged alcohol withdrawal, ataxia, hyponatremia, and other problems. Received gabapentin, lorazepam, thiamine, and other therapies with improvement of his alcohol withdrawal and ataxia. Received PT and OT. Seen in consultation by Neurology for ataxia and ambulatory dysfunction; symptoms felt to be secondary to neuropathy and cerebellar ataxia. Significant hyponatremia attributed to decreased electrolyte intake and probable SIADH. Hyponatremia was treated with IV normal saline and subsequent fluid restriction. Patient preferred not to be on a fluid restriction and was placed on sodium chloride tablets. Experienced dysphagia to solids and pills during hospital stay. Previous history of esophageal stricture, status post dilatation. GI was consulted and follow-up EGD/dilatation offered; the patient opted to have an outpatient follow-up. Case Management was consulted and attempted placement in skilled care, but no viable options were available. By the time of discharge, patient was medically stable and ambulating without difficulty. Abstinence from alcohol consumption was strongly advised and patient was given contact information for counseling resources. He was discharged to his apartment on 08/27/17. Patient indicated that he would like to be seen by Dr. Jorgensen for primary care and was advised to make an appointment for follow-up, but apparently did not. He returned to the ED today complaining of generalized weakness, tremors, difficulty ambulating. Patient states that he fell a few times. Denies headache. Admits drinking about 6 beers/day. He states that his dysphagia to solids has worsened since his discharge. No nausea or vomiting. No abdominal pain. No melena or hematochezia. . Physical Exam (per Admitting): General Appearance: no apparent distress, + thin Head: normocephalic, atraumatic Eyes: normal inspection, PERRL, EOMI, sclerae normal, + pertinent finding ( Conjunctivae normal) ENT: normal ENT inspection, + pertinent finding (very hard of hearing; dentition poor) Neck: supple, no adenopathy, thyroid normal, no JVD, trachea midline Respiratory/Chest: lungs clear, no respiratory distress Cardiovascular: regular rate, rhythm, no edema, no gallop, no JVD, + systolic murmur (II/ systolic murmur at base) Abdomen/GI: normal bowel sounds, non tender, soft, no organomegaly, no pulsatile mass Extremities/Musculoskelatal: no calf tenderness, normal capillary refill, + pertinent finding (no cyanosis, no clubbing) 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 Most likely secondary to decrease electrolyte intake due to alcoholism + SIADH. Non compliant with fluid restriction Was placed on Na liberal diet and NaCl tablets. Sodium 126 today -09/08/17 Has been on salt tabs and fluid restriction No improvement in sodium level will try NS 1000 mls only with IV Lasix of 40 Check level tomorrow -can be discharged if sodium is trending up Clinically stable Ambulating with walker-Prescription for walker provided 09/13/17 Na 128 today Will give additional 20mg lasix today Continue salt tab Fluid restriction Continue monitor BMP ALCOHOLISM with ALCOHOL WITHDRAWAL Presents with worsening ataxia and severe tremors. Blood alcohol level 83 on presentation. Alcohol withdrawal protocol with gabapentin and Ativan Has been on Thiamine, Folate, Multivitamins. Social Service on board No withdrawal symptoms Remains unsteady on feet Continue Physical Therapy 09/13/17 Counseling on alcohol cessation Discussed with patient that alcohol will damage his liver if he does not stop drinking and Continue Thiamine, Folate and MVI ATAXIA / AMBULATORY DYSFUNCTION::secondary to Alcoholism Recurrent ataxia with severe ambulatory dysfunction. 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 Ataxia and gait dysfunction seems improved significantly during last hospital stay, probably due to abstinence from alcohol and administration of thiamine and other vitamins. Get PT/OT-ongoing and showing a little improvement Walker provided as per PT recommendation 09/13 Continue PT/OT Fall precaution Use your walker to ambulate HTN From withdrawal of Alcohol Placed on clonidine prn Controlled 09/13 BP has been fluctuates Continue Atenolol Stable DYSPHAGIA History of esophageal stricture, status post dilatation. GI consulted - recommends to f/u with regular providers as he currently tolerating soft diet placed on mechanical soft diet. will monitor OP appointment with GI VTE PROPHYLAXIS SCD's. Ambulate. DISPOSITION Discharge home with home health services Missed his last 6 appointment with his PCP Continue PT/OT Total time spent on discharge = 35 MINUTES This includes examination of the patient, discharge planning, medication reconciliation, and communication with other providers. Discharge Instructions Discharge Instructions Date of Service Sep 13, 2017. Admission Reason for Admission: Alcohol Withdrawal, Ataxia Discharge Discharge Diagnosis / Problem: Alcohol abuse, Ambulatory dysfunction, Hypertension, Dysphagia,hyponatremia Discharge Goals Goal(s): Decrease discomfort, Improve function, Improve disease control Activity Recommendations Activity Limitations: resume your previous activity (as tolerated) . Instructions / Follow-Up Instructions / Follow-Up It is very important for you to call your primary care provider Dr. Jorgensen at [phone] to schedule a follow up appointment within 1 week ( You missed the last 6 follow up appointments) Please stop drinking alcohol. Alcohol will damage your liver and kill you if you don't stop drinking Continue physical therapy Use your walker for ambulation (script was given to you) Fall precaution Check BMP between 3 to 5 days to monitor your Sodium level Continue 1.5L Fluid restriction Follow up with gastro for your difficulty to swallow. Continue follow a mechanical soft diet Aspiration precaution Current Hospital Diet Patient's current hospital diet: Low Fiber Diet Discharge Diet Recommended Diet: Low Fiber Diet Diet Texture: Mechanical Soft (ground) Pending Studies Studies pending at discharge: no Laboratory Results Lipid Panel Test 06/13/17 10:04 Range/Units Triglycerides Level 59 0-150 mg/dl Cholesterol Level 195 0-200 mg/dl HDL Cholesterol 128 mg/dl Cholesterol/HDL Ratio 1.5 LDL Cholesterol, Calculated 55 mg/dl Medical Emergencies . Who to Call and When: Medical Emergencies: If at any time you feel your situation is an emergency, please call 911 immediately. . Non-Emergent Contact Non-Emergency issues call your: Primary Care Provider, Railway Switch Operator Call Non-Emergent contact if: you have any medication questions . . "Provider Documentation" section prepared by Chito Ennis. . Additional Copies To Stevan Jorgensen M.D.
== END 2017-09-13 15:16 | disposition home health service (06) | DRG 644 ==
LOC: EDBD 11:40 → C.EDB 11:41 → C.2T 18:46 → ENRESERV 18:53 → C.MS4W 09-08 19:03
PROVIDERS: ADMIT Hospitalist; ATTEND Internal Medicine
DX: E22.2 Syndrome of inappropriate secretion of antidiuretic hormone (principal); F10.239 Alcohol dependence with withdrawal, unspecified; G31.2 Degeneration of nervous system due to alcohol; R29.6 Repeated falls; I10 Essential (primary) hypertension; K22.2 Esophageal obstruction; R13.10 Dysphagia, unspecified; Z88.0 Allergy status to penicillin; Z91.81 History of falling

== ENCOUNTER 2017-09-20 23:55 | Inpatient (IN) | payer OTHER ==
[~2017-09-20] VITALS: Ht 180.3 cm; Wt 64.0 kg
[~2017-09-20 23:55] MED LIST changes: +FLV1 PO; -MULTTAB58 PO; -THM100 PO; +THM50 PO; +TNR25 PO; -TNR25X PO
[2017-09-21] VITALS (10 sets, daily range): BP systolic 118–177; BP diastolic 79–111; PULSE 72–103; TEMP 36.5–37.4; O2SAT 93–98; Ht 180.3 cm; Wt 64.0 kg
[2017-09-21] MEDS ORDERED: SODIUM CHLORIDE 0.9% 1000ML 1,000 ML IV STA (00:02)
[2017-09-21] MEDS ORDERED: LORAZEPAM 2 MG/ML 1 ML VIAL IV STA ×4 (00:02→02:36)
--- NOTE | 2017-09-21 00:13 | EMERGENCY ROOM VISIT NOTE ---
History Report prepared by Renetta: Lucy Linares Under the Supervision of: Dr. Jeremie Amanda M.D. First contact with patient: 23:58 Chief Complaint: SEIZURE Stated Complaint: SEIZURE History of Present Illness The patient is a 52 year old male who presents to the Emergency Room with complaints of an episode of a seizure occurring just prior to arrival. Per EMS, the patient called police with a complaint of an inability to walk. Upon the police arrival, the patient had a seizure. The patient reports he drank alcohol yesterday but he denies any alcohol use today. He notes some abdominal pain. The patient was recently admitted for alcohol withdrawal and hyponatremia. History is limited secondary to post ictal state. Source of History: patient Onset: just prior to arrival Position: other (generalized) Quality: other (generalized) Timing: other (episode) Associated Symptoms: + abdominal pain Review of Systems ROS is limited secondary to post ictal state. Past Medical & Surgical Medical Problems: (1) Alcoholism (2) Alcoholism /alcohol abuse (3) Ambulatory dysfunction (4) Ataxia (5) Bilateral leg weakness (6) Fracture Calcaneus-Close (7) Frequent falls (8) Hip fracture (9) Hypertension (10) Hyponatremia (11) Weakness of both lower limbs Social History Problems: (1) Alcohol abuse Family History Hypertension Social History Smoking Status: Former Smoker Alcohol Use: heavy Drug Use: none Marital Status: single Housing Status: other Occupation Status: unemployed Current/Historical Medications Unable to Obtain Active Prescriptions or Reported Meds Allergies Coded Allergies: Penicillins (Verified Adverse Reaction, Mild, TIRED, 09/04/17) Physical Exam Vital Signs Date Time Temp Pulse Resp B/P (MAP) Pulse Ox O2 Delivery O2 Flow Rate FiO2 09/21/17 03:09 81 20 178/100 96 Room Air 09/21/17 02:44 127 25 212/140 97 Room Air 09/21/17 01:25 86 17 96 Room Air 09/21/17 01:02 166/92 09/21/17 00:25 93 17 09/21/17 00:02 194/113 09/21/17 00:00 37.4 97 20 194/113 100 Room Air Physical Exam GENERAL: Patient is confused/postictal. Tremulous but starting to answer questions. Patient is cachetic and malnutrition. HEENT: Multiple abrasions along left mucosal tissue, no active bleeding, normocephalic atraumatic, mucous membranes moist, no nasal congestion, no scleral icterus. NECK: No stridor, no adenopathy, no meningismus, trachea is midline. LUNGS: No dyspnea. Clear to auscultation and equal bilaterally. No wheeze, no rhonchi. HEART: Regular rate and rhythm. No murmurs, rubs, gallops appreciated. ABDOMEN: Soft, nontender, bowel sounds positive, no masses appreciated, no peritonitis. BACK: No midline tenderness, no CVA tenderness EXTREMITIES: Normal motion all extremities, no cyanosis, no edema. NEUROLOGIC: Severely tremulous, does move all extremities to command, no acute motor or sensory deficits, no focal weakness, cranial nerves grossly intact. SKIN: No rash, no jaundice, no diaphoresis. Medical Decision & Procedures ER Provider Diagnostic Interpretation: X ray results are stated below per my interpretation: Chest: 1 view: No infiltrate, no effusion, normal cardiac border. Lung changes consistent with emphysema, multiple left rib fractures which appear similar to chest X-ray from 09/04. Laboratory Results 09/21/17 00:12 Red Blood Count 3.97, Mean Corpuscular Volume 91.2, Mean Corpuscular Hemoglobin 32.2, Mean Corpuscular Hemoglobin Concent 35.4, Mean Platelet Volume 8.1, Neutrophils (%) (Auto) 78.6, Lymphocytes (%) (Auto) 8.0, Monocytes (%) (Auto) 10.8, Eosinophils (%) (Auto) 0.3, Basophils (%) (Auto) 0.4, Neutrophils # (Auto ) 8.90, Lymphocytes # (Auto) 0.91, Monocytes # (Auto) 1.22, Eosinophils # (Auto ) 0.03, Basophils # (Auto) 0.05 09/21/17 00:12 Test 09/21/17 00:12 09/21/17 00:13 09/21/17 01:15 09/21/17 01:36 White Blood Count 11.32 K/uL (4.8-10.8) Red Blood Count 3.97 M/uL (4.7-6.1) Hemoglobin 12.8 g/dL (14.0-18.0) Hematocrit 36.2 % (42-52) Mean Corpuscular Volume 91.2 fL (80-100) Mean Corpuscular Hemoglobin 32.2 pg (25-34) Mean Corpuscular Hemoglobin Concent 35.4 g/dl (32-36) Platelet Count 405 K/uL (130-400) Mean Platelet Volume 8.1 fL (7.4-10.4) Neutrophils (%) (Auto) 78.6 % Lymphocytes (%) (Auto) 8.0 % Monocytes (%) (Auto) 10.8 % Eosinophils (%) (Auto) 0.3 % Basophils (%) (Auto) 0.4 % Neutrophils # (Auto) 8.90 K/uL (1.4-6.5) Lymphocytes # (Auto) 0.91 K/uL (1.2-3.4) Monocytes # (Auto) 1.22 K/uL (0.11-0.59) Eosinophils # (Auto) 0.03 K/uL (0-0.5) Basophils # (Auto) 0.05 K/uL (0-0.2) RDW Standard Deviation 53.0 fL (36.4-46.3) RDW Coefficient of Variation 15.7 % (11.5-14.5) Immature Granulocyte % (Auto) 1.9 % Immature Granulocyte # (Auto) 0.21 K/uL (0.00-0.02) Red Blood Cell Morphology Unremarkable Anion Gap 19.0 mmol/L (3-11) Estimated GFR () 95.7 Estimated GFR (Non- 82.5 BUN/Creatinine Ratio 4.4 (10-20) Calcium Level 9.0 mg/dl (8.5-10.1) Phosphorus Level 2.9 mg/dl (2.5-4.9) Total Bilirubin 0.8 mg/dl (0.2-1) Direct Bilirubin 0.2 mg/dl (0-0.2) Aspartate Amino Transf (AST/SGOT) 53 U/L (15-37) Alanine Aminotransferase (ALT/SGPT) 31 U/L (12-78) Alkaline Phosphatase 143 U/L (45-117) Total Creatine Kinase 212 U/L (39-308) Troponin I < 0.015 ng/ml (0-0.045) Total Protein 8.0 gm/dl (6.4-8.2) Albumin 3.8 gm/dl (3.4-5.0) Ethyl Alcohol mg/dL < 3.0 mg/dl (0-3) Bedside Lactic Acid Venous 10.58 mmol/L (0.90-1.70) Urine Color YELLOW Urine Appearance CLEAR (CLEAR) Urine pH 6.0 (4.5-7.5) Urine Specific [place] 1.010 (1.000-1.030) Urine Protein 1+ (NEG) Urine Glucose (UA) NEG (NEG) Urine Ketones 3+ (NEG) Urine Occult Blood 1+ (NEG) Urine Nitrite NEG (NEG) Urine Bilirubin NEG (NEG) Urine Urobilinogen NEG (NEG) Urine Leukocyte Esterase NEG (NEG) Urine WBC (Auto) 1-5 /hpf (0-5) Urine RBC (Auto) 0-4 /hpf (0-4) Urine Hyaline Casts (Auto) 1-5 /lpf (0-5) Urine Epithelial Cells (Auto) 5-10 /lpf (0-5) Urine Bacteria (Auto) NEG (NEG) Prothrombin Time 10.7 SECONDS (9.0-12.0) Prothromb Time International Ratio 1.0 (0.9-1.1) Activated Partial Thromboplast Time 23.6 SECONDS (21.0-31.0) Partial Thromboplastin Ratio 0.9 Laboratory results as reviewed by me. Medications Administered Medications (Trade) Dose Ordered Sig/Jaylene Route Start Time Stop Time Status Last Admin Dose Admin Sodium Chloride 1,000 ml @ 999 mls/hr Q1H1M STAT IV 09/21/17 00:02 09/21/17 01:02 DC 09/21/17 00:18 999 MLS/HR Multivitamins 10 ml/Thiamine HCl 100 mg/Folic Acid 1 mg/Sodium Chloride 1,011.2 ml @ 500 mls/ hr Q2H2M ONCE IV 09/21/17 00:15 09/21/17 02:16 DC 09/21/17 00:19 500 MLS/HR Lorazepam (Ativan Inj) 2 mg NOW STAT IV 09/21/17 00:02 09/21/17 00:05 DC 09/21/17 00:18 2 MG Lorazepam (Ativan Inj) 2 mg NOW STAT IV 09/21/17 01:15 09/21/17 01:17 DC 09/21/17 01:33 2 MG Lorazepam (Ativan Inj) 2 mg NOW STAT IV 09/21/17 01:24 09/21/17 01:25 DC 09/21/17 01:52 2 MG Lorazepam (Ativan Inj) 4 mg NOW STAT IV 09/21/17 02:36 09/21/17 02:37 DC 09/21/17 02:42 4 MG ED Course 2359: The patient was evaluated in room B6. A complete history and physical exam was performed. 0031: Obtained IV secondary to agitation. 0115: Initially improved but now his tremors are now starting to return. However his blood pressure is improving. 0125: Discussed the patient's case with Dr. Persaud. The patient will be evaluated for further treatment and disposition. 0159: The patient is sleeping and in no distress. Medical Decision Differential: Toxicological, Infectious, Stroke, SAH, Trauma, Electrolyte Abnormality, Hypoglycemia, Alcohol Intoxication, Drug Intoxication, Cardiac Abnormality, Sepsis, Meningitis/Encephalitis, Trauma, Excited Delirium, Serotonin Syndrome, Psychiatric, amongst other pathologies entertained. 52 yr old male arrives for evaluation post seizure. He is becoming well known to facility for alcohol withdrawal issues. He is somewhat post ictal here, very shaky and admitting his last drink was 24 hours ago. With his HTN and tachy and shaking clearly he is withdrawing and I suspect that is what seizure was from. His lactic acid is quite elevated consistent with seizure in alcoholic. He was given 1L NSS + Banana bag for rehydration. Sodium is better than his usual. He had increasing tremor again along with spiking BP thus over ED course I opted to give another 2 rounds of ativan (4mg IV each time) with good response and protecting airway. Initial straight cath with no UOP, however after 2 L he had ~1L and was in retention thus alexander placed. No fever, no significant leukocytosis, and he does not appear meningitic, and given fact this is very much consistent with his alcohol withdrawal, I do not feel that LP would be appropriate. CT done given poor historian and no acute findings noted. Lac to inner cheek without need for closure. Protecting airway throughout and no evidence of aspiration event with clear CXR. Will need to come in to hospitalist given his DTs and high risk of mortality/morbidity. Medication Reconcilliation Current Medication List: was personally reviewed by me Blood Pressure Screening Patient's blood pressure: Elevated blood pressure Blood pressure disposition: Referred to PCP (coming down with Ativan. Will be monitored by hospitalist ) Consults Time Called: 0120 Consulting Physician: Dr. Persaud Returned Call: 0125 Discussed the patient's case with Dr. Persaud. The patient will be evaluated for further treatment and disposition. Impression Primary Impression: Alcohol withdrawal Additional Impressions: Seizure Lactic acidosis Delirium tremens Critical Care I have personally spent greater than 45 minutes of critical care time in the direct management of this patient. This was a life/limb threatening event. This includes time spent evaluating patient, direct bedside care, chart review, placing orders, interpretation of diagnostic studies, discussion with consultants, patient, and family members, as well as other required patient management activities. This 45 minutes is in excess of all separately billable procedures. Scribe Attestation The scribe's documentation has been prepared under my direction and personally reviewed by me in its entirety. I confirm that the note above accurately reflects all work, treatment, procedures, and medical decision making performed by me. Departure Information Dispostion Being Evaluated By Hospitalist Prescriptions Unable to Obtain Active Prescriptions or Reported Meds Referrals Stevan Jorgensen M.D. (PCP) Patient Instructions My [facility] Problem Qualifiers
[2017-09-21] MEDS ORDERED: MULTI-VITAMIN INFUSION INJ 10 ML, THIAMINE HCL INJ 100 MG, FoLIC ACID INJ 1 MG in SODIU... IV ONE (00:15)
[2017-09-21 00:41] LABS: HEMATOCRIT 36.2 % (42-52); HEMOGLOBIN 12.8 g/dL (14.0-18.0); MEAN CELL VOLUME 91.2 fL (80-100); MEAN CORPUSCULAR HEMOGLOBIN 32.2 pg (25-34); MEAN CORPUSCULAR HGB CONC 35.4 g/dl (32-36); MEAN PLATELET VOLUME 8.1 fL (7.4-10.4); PLATELET COUNT 405 K/uL (130-400); RED CELL DISTRIBUTION WIDTH CV 15.7 % (11.5-14.5); WHITE BLOOD COUNT 11.32 K/uL (4.8-10.8)
[2017-09-21 00:55] LABS: ALBUMIN 3.8 gm/dl (3.4-5.0); ALT/SGPT 31 U/L (12-78); BLOOD UREA NITROGEN 5 mg/dl (7-18); CARBON DIOXIDE 19 mmol/L (21-32); CREATININE 1.03 mg/dl (0.60-1.40); GLUCOSE 101 mg/dl (70-99); POTASSIUM 3.3 mmol/L (3.5-5.1); SODIUM 130 mmol/L (136-145)
[2017-09-21 01:00] LABS: ALKALINE PHOSPHATASE 143 U/L (45-117); AST/SGOT 53 U/L (15-37); PHOSPHORUS 2.9 mg/dl (2.5-4.9)
[2017-09-21 01:04] LABS: BASO % 0.4 %; BASO ABS # 0.05 K/uL (0-0.2); EOS % 0.3 %; EOS ABS # 0.03 K/uL (0-0.5); IG# 0.21 K/uL (0.00-0.02); LYMPH ABS # 0.91 K/uL (1.2-3.4); MONO % 10.8 %; MONO ABS # 1.22 K/uL (0.11-0.59); NEUT % 78.6 %
[2017-09-21 02:04] LABS: PTT PATIENT 23.6 SECONDS (21.0-31.0)
[2017-09-21] MEDS ORDERED: LORAZEPAM 1 MG TAB PO PRN (03:15)
[2017-09-21] MEDS ORDERED: POLYETHYLENE (MIRALAX) 17 GM PACK PO PRN (03:15)
[2017-09-21] MEDS ORDERED: ONDANSETRON INJ 2 MG/ML 2 ML VIAL IV PRN (03:15)
[2017-09-21] MEDS ORDERED: GABAPENTIN 600 MG TAB PO SCH (03:15)
[2017-09-21] MEDS ORDERED: ATEN25TA PO (03:17)
[2017-09-21] MEDS ORDERED: FLV1 PO (03:17)
[2017-09-21] MEDS ORDERED: THM50 PO (03:17)
--- NOTE | 2017-09-21 03:35 | History and Physical ---
History & Physical Date & Time of Service: Sep 21, 2017 at 03:17 Chief Complaint: Seizure Primary Care Physician: Stevan Jorgensen M.D. History of Present Illness Source: patient, clinic records, hospital records The patient is a 52-year-old alcoholic man who presents to the emergency room via EMS after complaints of leg pain prompting him to contact police. When they arrived, the patient was having a seizure. He was transferred via EMS. He was recently admitted to this hospital for alcohol withdrawal and hyponatremia. History is limited secondary to postictal state as well as Ativan administration effects. In the ER the patient is mildly tachycardic with a pulse of 97 blood pressure of 194/113 afebrile, and saturating 100% on room air physical exam was pertinent for confusion and postictal state. He was tremulous but attempted to answer questions. He is cachectic and malnourished. He had multiple abrasions along the buccal mucosa with no active bleeding. Neuro exam reveals all extremities moving to command with no acute motor or definite sensory deficits. Lab work reveals a sodium of 130, potassium of 3.3, a bicarb of 19, normal kidney function, H&H of 1336. A Nielsen catheter was placed with 1000 cc of residual urine. Troponin was checked and negative. Liver enzymes were within normal range. Alcohol level was negative. Initial lactic acid was 11. Past Medical/Surgical History Medical Problems: (1) Alcoholism Status: Chronic (2) Ambulatory dysfunction Status: Chronic (3) Ataxia Status: Chronic (4) Delirium tremens Status: Resolved (5) Dysphagia Permanent Comment: h/o esophageal stricture s/p dilation in past Status: Chronic (6) Fracture Calcaneus-Close Status: Resolved (7) Frequent falls Status: Chronic (8) Hip fracture Status: Resolved (9) Hypertension Status: Chronic (10) Hyponatremia Status: Resolved Family History Hypertension Pt is lethargic after Ativan and DTs. Unable to provide this information. Derived from records only Social History Pt is lethargic after Ativan and DTs. Unable to provide this information. Derived from records only Smoking Status: Never Smoker Smokeless Tobacco Use: Unknown Alcohol Use: heavy Drug Use: none Marital Status: single Housing status: lives alone, other Occupational Status: unemployed Immunizations History of Influenza Vaccine: Unknown History of Tetanus Vaccine?: Unknown History of Pneumococcal: Unknown History of Hepatitis B Vaccine: Unknown Allergies Coded Allergies: Penicillins (Verified Adverse Reaction, Mild, TIRED, 09/04/17) Home Medications Scheduled Atenolol (Tenormin), 1 TAB PO DAILY Thiamine HCl (Vitamin B-1), 50 MG PO DAILY Miscellaneous Medications Folic Acid (Folic Acid), 1 MG PO Review of Systems Pt is lethargic after Ativan and DTs. Unable to provide this information. Derived from records only Physical Exam Vital Signs Date Time Temp Pulse Resp B/P (MAP) Pulse Ox O2 Delivery O2 Flow Rate FiO2 09/21/17 03:09 81 20 178/100 96 Room Air 09/21/17 02:44 127 25 212/140 97 Room Air 09/21/17 01:25 86 17 96 Room Air 09/21/17 01:02 166/92 09/21/17 00:25 93 17 09/21/17 00:02 194/113 09/21/17 00:00 37.4 97 20 194/113 100 Room Air General Appearance: + mild distress, + thin Head: normocephalic, atraumatic Eyes: normal inspection, PERRL, sclerae normal ENT: pharynx normal Neck: no JVD, trachea midline Respiratory/Chest: lungs clear, normal breath sounds, no respiratory distress, no accessory muscle use Cardiovascular: no edema, no gallop, no JVD, no murmur, normal peripheral pulses, + tachycardia Abdomen/GI: non tender, soft Extremities/Musculoskelatal: normal inspection, no pedal edema Diagnostics Laboratory Results 09/21/17 00:12 Red Blood Count 3.97, Mean Corpuscular Volume 91.2, Mean Corpuscular Hemoglobin 32.2, Mean Corpuscular Hemoglobin Concent 35.4, Mean Platelet Volume 8.1, Neutrophils (%) (Auto) 78.6, Lymphocytes (%) (Auto) 8.0, Monocytes (%) (Auto) 10.8, Eosinophils (%) (Auto) 0.3, Basophils (%) (Auto) 0.4, Neutrophils # (Auto ) 8.90, Lymphocytes # (Auto) 0.91, Monocytes # (Auto) 1.22, Eosinophils # (Auto ) 0.03, Basophils # (Auto) 0.05 09/21/17 00:12 Test 09/21/17 00:12 09/21/17 00:13 09/21/17 01:15 09/21/17 01:36 White Blood Count 11.32 K/uL (4.8-10.8) Red Blood Count 3.97 M/uL (4.7-6.1) Hemoglobin 12.8 g/dL (14.0-18.0) Hematocrit 36.2 % (42-52) Mean Corpuscular Volume 91.2 fL (80-100) Mean Corpuscular Hemoglobin 32.2 pg (25-34) Mean Corpuscular Hemoglobin Concent 35.4 g/dl (32-36) Platelet Count 405 K/uL (130-400) Mean Platelet Volume 8.1 fL (7.4-10.4) Neutrophils (%) (Auto) 78.6 % Lymphocytes (%) (Auto) 8.0 % Monocytes (%) (Auto) 10.8 % Eosinophils (%) (Auto) 0.3 % Basophils (%) (Auto) 0.4 % Neutrophils # (Auto) 8.90 K/uL (1.4-6.5) Lymphocytes # (Auto) 0.91 K/uL (1.2-3.4) Monocytes # (Auto) 1.22 K/uL (0.11-0.59) Eosinophils # (Auto) 0.03 K/uL (0-0.5) Basophils # (Auto) 0.05 K/uL (0-0.2) RDW Standard Deviation 53.0 fL (36.4-46.3) RDW Coefficient of Variation 15.7 % (11.5-14.5) Immature Granulocyte % (Auto) 1.9 % Immature Granulocyte # (Auto) 0.21 K/uL (0.00-0.02) Red Blood Cell Morphology Unremarkable Anion Gap 19.0 mmol/L (3-11) Estimated GFR () 95.7 Estimated GFR (Non- 82.5 BUN/Creatinine Ratio 4.4 (10-20) Calcium Level 9.0 mg/dl (8.5-10.1) Phosphorus Level 2.9 mg/dl (2.5-4.9) Magnesium Level 2.0 mg/dl (1.8-2.4) Total Bilirubin 0.8 mg/dl (0.2-1) Direct Bilirubin 0.2 mg/dl (0-0.2) Aspartate Amino Transf (AST/SGOT) 53 U/L (15-37) Alanine Aminotransferase (ALT/SGPT) 31 U/L (12-78) Alkaline Phosphatase 143 U/L (45-117) Total Creatine Kinase 212 U/L (39-308) Troponin I < 0.015 ng/ml (0-0.045) Total Protein 8.0 gm/dl (6.4-8.2) Albumin 3.8 gm/dl (3.4-5.0) Ethyl Alcohol mg/dL < 3.0 mg/dl (0-3) Bedside Lactic Acid Venous 10.58 mmol/L (0.90-1.70) Urine Color YELLOW Urine Appearance CLEAR (CLEAR) Urine pH 6.0 (4.5-7.5) Urine Specific [place] 1.010 (1.000-1.030) Urine Protein 1+ (NEG) Urine Glucose (UA) NEG (NEG) Urine Ketones 3+ (NEG) Urine Occult Blood 1+ (NEG) Urine Nitrite NEG (NEG) Urine Bilirubin NEG (NEG) Urine Urobilinogen NEG (NEG) Urine Leukocyte Esterase NEG (NEG) Urine WBC (Auto) 1-5 /hpf (0-5) Urine RBC (Auto) 0-4 /hpf (0-4) Urine Hyaline Casts (Auto) 1-5 /lpf (0-5) Urine Epithelial Cells (Auto) 5-10 /lpf (0-5) Urine Bacteria (Auto) NEG (NEG) Urine Opiates Screen NEG (NEG) Urine Methadone, Qualitative NEG (NEG) Urine Barbiturates NEG (NEG) Urine Phencyclidine (PCP) Level NEG (NEG) Ur Amphetamine/Methamphetamine NEG (NEG) MDMA (Ecstasy) Screen NEG (NEG) Urine Benzodiazepines Screen NEG (NEG) Urine Cocaine Metabolite NEG (NEG) Urine Marijuana (THC) NEG (NEG) Prothrombin Time 10.7 SECONDS (9.0-12.0) Prothromb Time International Ratio 1.0 (0.9-1.1) Activated Partial Thromboplast Time 23.6 SECONDS (21.0-31.0) Partial Thromboplastin Ratio 0.9 Test 09/21/17 05:57 Lactic Acid Level 1.3 mmol/L (0.4-2.0) Date/Time Source Procedure Growth Status 3/8/18 00:30 Blood Blood Culture Pending Received Results Past 24 Hours Test 09/21/17 00:12 09/21/17 00:13 09/21/17 01:15 09/21/17 01:36 Range/Units White Blood Count 11.32 4.8-10.8 K/uL Red Blood Count 3.97 4.7-6.1 M/uL Hemoglobin 12.8 14.0-18.0 g/dL Hematocrit 36.2 42-52 % Mean Corpuscular Volume 91.2 80-100 fL Mean Corpuscular Hemoglobin 32.2 25-34 pg Mean Corpuscular Hemoglobin Concent 35.4 32-36 g/dl Platelet Count 405 130-400 K/uL Mean Platelet Volume 8.1 7.4-10.4 fL Neutrophils (%) (Auto) 78.6 % Lymphocytes (%) (Auto) 8.0 % Monocytes (%) (Auto) 10.8 % Eosinophils (%) (Auto) 0.3 % Basophils (%) (Auto) 0.4 % Neutrophils # (Auto) 8.90 1.4-6.5 K/uL Lymphocytes # (Auto) 0.91 1.2-3.4 K/uL Monocytes # (Auto) 1.22 0.11-0.59 K/uL Eosinophils # (Auto) 0.03 0-0.5 K/uL Basophils # (Auto) 0.05 0-0.2 K/uL RDW Standard Deviation 53.0 36.4-46.3 fL RDW Coefficient of Variation 15.7 11.5-14.5 % Immature Granulocyte % (Auto) 1.9 % Immature Granulocyte # (Auto) 0.21 0.00-0.02 K/uL Red Blood Cell Morphology Unremarkable Sodium Level 130 136-145 mmol/L Potassium Level 3.3 3.5-5.1 mmol/L Chloride Level 92 98-107 mmol/L Carbon Dioxide Level 19 21-32 mmol/L Anion Gap 19.0 3-11 mmol/L Blood Urea Nitrogen 5 7-18 mg/dl Creatinine 1.03 0.60-1.40 mg/dl Estimated GFR () 95.7 Estimated GFR (Non- 82.5 BUN/Creatinine Ratio 4.4 10-20 Random Glucose 101 70-99 mg/dl Calcium Level 9.0 8.5-10.1 mg/dl Phosphorus Level 2.9 2.5-4.9 mg/dl Total Bilirubin 0.8 0.2-1 mg/dl Direct Bilirubin 0.2 0-0.2 mg/dl Aspartate Amino Transf (AST/SGOT) 53 15-37 U/L Alanine Aminotransferase (ALT/SGPT) 31 12-78 U/L Alkaline Phosphatase 143 45-117 U/L Total Creatine Kinase 212 39-308 U/L Troponin I < 0.015 0-0.045 ng/ml Total Protein 8.0 6.4-8.2 gm/dl Albumin 3.8 3.4-5.0 gm/dl Ethyl Alcohol mg/dL < 3.0 0-3 mg/dl Bedside Lactic Acid Venous 10.58 0.90-1.70 mmol/L Urine Color YELLOW Urine Appearance CLEAR CLEAR Urine pH 6.0 4.5-7.5 Urine Specific [place] 1.010 1.000-1.030 Urine Protein 1+ NEG Urine Glucose (UA) NEG NEG Urine Ketones 3+ NEG Urine Occult Blood 1+ NEG Urine Nitrite NEG NEG Urine Bilirubin NEG NEG Urine Urobilinogen NEG NEG Urine Leukocyte Esterase NEG NEG Urine WBC (Auto) 1-5 0-5 /hpf Urine RBC (Auto) 0-4 0-4 /hpf Urine Hyaline Casts (Auto) 1-5 0-5 /lpf Urine Epithelial Cells (Auto) 5-10 0-5 /lpf Urine Bacteria (Auto) NEG NEG Prothrombin Time 10.7 9.0-12.0 SECONDS Prothromb Time International Ratio 1.0 0.9-1.1 Activated Partial Thromboplast Time 23.6 21.0-31.0 SECONDS Partial Thromboplastin Ratio 0.9 Test 09/21/17 03:07 Range/Units Microbiology Results 09/21/17 Blood Culture, Received Pending 09/21/17 Blood Culture, Received Pending Diagnostic Radiology CHEST ONE VIEW PORTABLE HISTORY: Altered mental status. COMPARISON: Chest 09/04/2017. FINDINGS: Old, healed left-sided rib fractures. Emphysema. No new focal lung consolidations to suggest pneumonia. No evidence for pulmonary edema. The heart is normal in size. No pleural effusions. No pneumothorax. IMPRESSION: No significant change compared to the prior study. No acute process. HEAD WITHOUT CONTRAST (CT) CT DOSE: 614.27 mGy.cm HISTORY: Altered mental status AMS TECHNIQUE: Multiaxial CT images of the head were performed without the use of intravenous contrast. A dose lowering technique was utilized adhering to the principles of KAITLYN. Comparison: 08/13/2017 Findings: The paranasal sinuses and mastoid air cells are clear. The calvarium and skull base are intact. The ventricles and sulci are within normal limits. There is no mass, hematoma, midline shift, or acute infarct. 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 Mild stable atrophy. Impression: No acute intracranial abnormality. Chronic changes as noted EKG SR 87 Impression Assessment and Plan 52-year-old alcoholic male with recent hospital admission for alcohol withdrawal presents with delirium tremens with seizure. 1. Delirium tremens with seizure-likely related to alcohol withdrawal with known history of heavy alcohol use and alcohol withdrawal in the last 2 weeks. No seizures since admission and given benzo. Seizure precautions. Alcohol withdrawal protocol with frequent reassessment by nursing staff on telemetry. Gabapentin protocol begun. Case management consult requested. May need to consider placement. 2. Heavy alcohol use 3. Ataxia with ambulatory dysfunction and multiple falls-PT/OT evaluation. 4. Hypertension-uncontrolled secondary to #1. Continue Ativan, gabapentin, and atenolol. 5. Acute urinary retention-Nielsen placement in ER with greater than 1000 cc return. Consider urology consult. 6. Hyponatremia-likely secondary to alcoholism and poor p.o. intake, increased from prior hospitalization. 7. Hypokalemia-replace, repeat PRP in a.m. 8. Elevated lactate-likely secondary to seizure activity, repeat after IV fluids. DVT prophylaxis-Lovenox Full code Disposition-telemetry Sully Gregory DO [facility] hospitalist Resuscitation Status VTE Prophylaxis Will order VTE Prophylaxis: Yes
[2017-09-21] MEDS ORDERED: GABAPENTIN 1200MG LOADING DOSE PO SCH ×2 (04:30)
[2017-09-21] MEDS: SODIUM CHLORIDE 0.9% 1000ML 1,000 ML IV SCH ×2 (04:48→14:15)
--- NOTE | 2017-09-21 06:27 | DIAGNOSTIC IMAGING REPORT ---
HEAD WITHOUT CONTRAST (CT) CT DOSE: 614.27 mGy.cm HISTORY: Altered mental status AMS TECHNIQUE: Multiaxial CT images of the head were performed without the use of intravenous contrast. A dose lowering technique was utilized adhering to the principles of ALARA. Comparison: 08/13/2017 Findings: The paranasal sinuses and mastoid air cells are clear. The calvarium and skull base are intact. The ventricles and sulci are within normal limits. There is no mass, hematoma, midline shift, or acute infarct. 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 Mild stable atrophy. Impression: No acute intracranial abnormality. Chronic changes as noted The above report was generated using voice recognition software. It may contain grammatical, syntax or spelling errors. Electronically signed by: Keven Vann M.D. 09/21/2017 6:26 AM Dictated Date/Time: 09/21/2017 6:25 AM
--- NOTE | 2017-09-21 07:31 | DIAGNOSTIC IMAGING REPORT ---
CHEST ONE VIEW PORTABLE HISTORY: Altered mental status. COMPARISON: Chest 09/04/2017. FINDINGS: Old, healed left-sided rib fractures. Emphysema. No new focal lung consolidations to suggest pneumonia. No evidence for pulmonary edema. The heart is normal in size. No pleural effusions. No pneumothorax. IMPRESSION: No significant change compared to the prior study. No acute process. Electronically signed by: Jigar Cassidy M.D. 09/21/2017 7:30 AM Dictated Date/Time: 09/21/2017 7:29 AM
[2017-09-21] MEDS ORDERED: POTASSIUM CHLORIDE 10 MEQ TABCR PO ONE (09:00)
[2017-09-21] MEDS: GABAPENTIN 600MG Q6H DOSE PO SCH ×2 (09:29→16:21)
[2017-09-21] MEDS: ENOXAPARIN 40 MG/0.4 ML SYR SC SCH (09:30)
--- NOTE | 2017-09-21 12:49 | Progress Note ---
Internal Med Progress Note Date of Service: Sep 21, 2017. Provider Documentation: SUBJECTIVE: The patient was seen and examined Admitted with Delirium Tremens-doubt any seizure H/O Recurrent admissions with symptoms related to Alcohol Complains of some pain at the back this AM Could not take his medications OBJECTIVE: Vital Signs-as noted below Exam: General-No distress at rest Eyes-normal ENT-normal Neck-supple Lungs-clear to ausucltate bilaterally Heart-Regular Abdomen-Benign Extremities-Trace edema bilaterally Neuro-AA Pleasantly confused No tremors Lab data as noted below. ASSESSMENT & PLAN: 52-year-old alcoholic male with recent hospital admission for alcohol withdrawal presents with delirium tremens with seizure. Delirium tremens with seizure-likely related to alcohol withdrawal -known history of heavy alcohol use and alcohol withdrawal in the last 2 weeks. No seizures since admission and given benzo. Seizure precautions. Alcohol withdrawal protocol with frequent reassessment by nursing staff on telemetry. Gabapentin protocol begun. Case management consult requested. Will need placement Heavy alcohol use Recurrent admissions with Alcohol related issues Very noncompliant Will need in patient rehab Ataxia with ambulatory dysfunction and multiple falls-PT/OT evaluation. Secondary to chronic use of Alcohol Hypertension-uncontrolled secondary to #1. Continue Ativan, gabapentin, and atenolol. Acute urinary retention-Nielsen placement in ER with greater than 1000 cc return. Will monitor Will add Flomax . Hyponatremia-likely secondary to alcoholism and poor p.o. intake, increased from prior hospitalization. Hypokalemia-replace, repeat PRP in a.m. Remains borderline Low Will replace and monitor Elevated lactate-likely secondary to seizure activity, repeat after IV fluids. Normalized DVT prophylaxis-Lovenox Full code Awaited DISPOSITION [] Vital Signs: Date Time Temp Pulse Resp B/P (MAP) Pulse Ox O2 Delivery O2 Flow Rate FiO2 09/21/17 12:01 37.4 91 16 162/99 (120) 95 Room Air 09/21/17 08:02 37.3 93 16 177/111 (133) 94 Room Air 09/21/17 04:24 37.0 86 18 172/107 98 Room Air 09/21/17 03:49 98 20 155/96 97 09/21/17 03:09 81 20 178/100 96 Room Air 09/21/17 02:44 127 25 212/140 97 Room Air 09/21/17 01:25 86 17 96 Room Air 09/21/17 01:02 166/92 09/21/17 00:25 93 17 09/21/17 00:02 194/113 09/21/17 00:00 37.4 97 20 194/113 100 Room Air Lab Results: Results Past 24 Hours Test 09/21/17 00:12 09/21/17 00:13 09/21/17 01:15 09/21/17 01:36 Range/Units White Blood Count 11.32 4.8-10.8 K/uL Red Blood Count 3.97 4.7-6.1 M/uL Hemoglobin 12.8 14.0-18.0 g/dL Hematocrit 36.2 42-52 % Mean Corpuscular Volume 91.2 80-100 fL Mean Corpuscular Hemoglobin 32.2 25-34 pg Mean Corpuscular Hemoglobin Concent 35.4 32-36 g/dl Platelet Count 405 130-400 K/uL Mean Platelet Volume 8.1 7.4-10.4 fL Neutrophils (%) (Auto) 78.6 % Lymphocytes (%) (Auto) 8.0 % Monocytes (%) (Auto) 10.8 % Eosinophils (%) (Auto) 0.3 % Basophils (%) (Auto) 0.4 % Neutrophils # (Auto) 8.90 1.4-6.5 K/uL Lymphocytes # (Auto) 0.91 1.2-3.4 K/uL Monocytes # (Auto) 1.22 0.11-0.59 K/uL Eosinophils # (Auto) 0.03 0-0.5 K/uL Basophils # (Auto) 0.05 0-0.2 K/uL RDW Standard Deviation 53.0 36.4-46.3 fL RDW Coefficient of Variation 15.7 11.5-14.5 % Immature Granulocyte % (Auto) 1.9 % Immature Granulocyte # (Auto) 0.21 0.00-0.02 K/uL Red Blood Cell Morphology Unremarkable Sodium Level 130 136-145 mmol/L Potassium Level 3.3 3.5-5.1 mmol/L Chloride Level 92 98-107 mmol/L Carbon Dioxide Level 19 21-32 mmol/L Anion Gap 19.0 3-11 mmol/L Blood Urea Nitrogen 5 7-18 mg/dl Creatinine 1.03 0.60-1.40 mg/dl Estimated GFR () 95.7 Estimated GFR (Non- 82.5 BUN/Creatinine Ratio 4.4 10-20 Random Glucose 101 70-99 mg/dl Calcium Level 9.0 8.5-10.1 mg/dl Phosphorus Level 2.9 2.5-4.9 mg/dl Magnesium Level 2.0 1.8-2.4 mg/dl Total Bilirubin 0.8 0.2-1 mg/dl Direct Bilirubin 0.2 0-0.2 mg/dl Aspartate Amino Transf (AST/SGOT) 53 15-37 U/L Alanine Aminotransferase (ALT/SGPT) 31 12-78 U/L Alkaline Phosphatase 143 45-117 U/L Total Creatine Kinase 212 39-308 U/L Troponin I < 0.015 0-0.045 ng/ml Total Protein 8.0 6.4-8.2 gm/dl Albumin 3.8 3.4-5.0 gm/dl Ethyl Alcohol mg/dL < 3.0 0-3 mg/dl Bedside Lactic Acid Venous 10.58 0.90-1.70 mmol/L Urine Color YELLOW Urine Appearance CLEAR CLEAR Urine pH 6.0 4.5-7.5 Urine Specific [place] 1.010 1.000-1.030 Urine Protein 1+ NEG Urine Glucose (UA) NEG NEG Urine Ketones 3+ NEG Urine Occult Blood 1+ NEG Urine Nitrite NEG NEG Urine Bilirubin NEG NEG Urine Urobilinogen NEG NEG Urine Leukocyte Esterase NEG NEG Urine WBC (Auto) 1-5 0-5 /hpf Urine RBC (Auto) 0-4 0-4 /hpf Urine Hyaline Casts (Auto) 1-5 0-5 /lpf Urine Epithelial Cells (Auto) 5-10 0-5 /lpf Urine Bacteria (Auto) NEG NEG Urine Opiates Screen NEG NEG Urine Methadone, Qualitative NEG NEG Urine Barbiturates NEG NEG Urine Phencyclidine (PCP) Level NEG NEG Ur Amphetamine/Methamphetamine NEG NEG MDMA (Ecstasy) Screen NEG NEG Urine Benzodiazepines Screen NEG NEG Urine Cocaine Metabolite NEG NEG Urine Marijuana (THC) NEG NEG Prothrombin Time 10.7 9.0-12.0 SECONDS Prothromb Time International Ratio 1.0 0.9-1.1 Activated Partial Thromboplast Time 23.6 21.0-31.0 SECONDS Partial Thromboplastin Ratio 0.9 Test 09/21/17 05:57 Range/Units Lactic Acid Level 1.3 0.4-2.0 mmol/L Microbiology Results 09/21/17 Blood Culture, Received Pending 09/21/17 Blood Culture, Received Pending
[2017-09-21] MEDS ORDERED: TAMSULOSIN HCL 0.4 MG CAP PO ONE (13:00)
[2017-09-21] MEDS: ACETAMINOPHEN 325 MG TAB PO PRN (17:46)
[2017-09-22] MEDS: GABAPENTIN 600MG Q8H DOSE PO SCH ×3 (00:27→15:52)
[2017-09-22] MEDS: ACETAMINOPHEN 325 MG TAB PO PRN (01:23)
[2017-09-22 03:40] VITALS: BP_SYST 146; BP_SYST 156; BP_DIAS 105; BP_DIAS 96; PULSE 105; TEMP 36.4; O2SAT 95
[2017-09-22] MEDS ORDERED: TRAMADOL HCL 50 MG TAB PO STA (06:33)
[2017-09-22 07:56] VITALS: BP 147/97; PULSE 95; TEMP 37.1; O2SAT 95
[2017-09-22] MEDS: ENOXAPARIN 40 MG/0.4 ML SYR SC SCH (08:19)
[2017-09-22 11:57] VITALS: BP 127/80; TEMP 37.4; O2SAT 94
[2017-09-22] MEDS: TRAMADOL HCL 50 MG TAB PO PRN ×2 (14:11→20:55)
[2017-09-22] MEDS: TAMSULOSIN HCL 0.4 MG CAP PO SCH (14:12)
--- NOTE | 2017-09-22 15:19 | Progress Note ---
Internal Med Progress Note Date of Service: Sep 22, 2017. Provider Documentation: SUBJECTIVE: The patient was seen and examined Admitted with Delirium Tremens-doubt any seizure H/O Recurrent admissions with symptoms related to Alcohol Continues to have back pain Minimal tremors OBJECTIVE: Vital Signs-as noted below Exam: General-No distress at rest Eyes-normal ENT-normal Neck-supple Lungs-clear to ausucltate bilaterally Heart-Regular Abdomen-Benign Extremities-Trace edema bilaterally Neuro-AAOx3 Minimal tremors Lab data as noted below. ASSESSMENT & PLAN: 52-year-old alcoholic male with recent hospital admission for alcohol withdrawal presents with delirium tremens with seizure. Delirium tremens with seizure-likely related to alcohol withdrawal -known history of heavy alcohol use and alcohol withdrawal in the last 2 weeks. No seizures since admission and given benzo. Seizure precautions. Alcohol withdrawal protocol with frequent reassessment by nursing staff on telemetry. Gabapentin protocol begun. Case management consult requested. Will need placement -awaiting Clinically stable Minimal tremors in hands Heavy alcohol use Recurrent admissions with Alcohol related issues Very noncompliant Will need in patient rehab Willing to go to Rehab Ataxia with ambulatory dysfunction and multiple falls-PT/OT evaluation. Secondary to chronic use of Alcohol Hypertension-uncontrolled secondary to #1. Continue Ativan, gabapentin, and atenolol. Acute urinary retention-Nielsen placement in ER with greater than 1000 cc return. Will monitor Will add Flomax . Hyponatremia-likely secondary to alcoholism and poor p.o. intake, increased from prior hospitalization. Hypokalemia-replace, repeat PRP in a.m. Remains borderline Low Will replace and monitor Elevated lactate-likely secondary to seizure activity, repeat after IV fluids. Normalized DVT prophylaxis-Lovenox Full code Awaited Vital Signs: Date Time Temp Pulse Resp B/P (MAP) Pulse Ox O2 Delivery O2 Flow Rate FiO2 09/22/17 12:00 Room Air 09/22/17 11:57 37.4 20 127/80 (96) 94 Room Air 09/22/17 08:00 Room Air 09/22/17 07:56 37.1 95 16 147/97 (114) 95 Room Air 09/22/17 04:00 Room Air 09/22/17 03:40 36.4 105 18 156/96 (116) 95 09/21/17 23:59 Room Air 09/21/17 23:56 37.1 86 18 128/88 (101) 96 Room Air 09/21/17 21:50 36.5 72 22 132/91 (105) 98 Room Air 09/21/17 20:00 Room Air 09/21/17 18:49 36.8 100 20 118/79 (92) 94 Room Air 09/21/17 18:00 37.1 103 22 135/91 (106) Room Air 09/21/17 16:00 Room Air
[2017-09-22 15:21] VITALS: BP 142/97; PULSE 100; TEMP 36.7; O2SAT 94
[2017-09-22 18:52] VITALS: BP 161/96; PULSE 88; TEMP 36.3; O2SAT 98
[2017-09-22 23:59] VITALS: BP 135/90; PULSE 94; TEMP 37.1; O2SAT 96
[2017-09-23] MEDS: GABAPENTIN 600MG Q12H DOSE PO SCH ×2 (03:41→17:55)
[2017-09-23] MEDS: TRAMADOL HCL 50 MG TAB PO PRN ×3 (03:42→19:39)
[2017-09-23 03:55] VITALS: PULSE 89; TEMP 36.9; O2SAT 96
[2017-09-23 06:41] LABS: CALCIUM 8.5 mg/dl (8.5-10.1); CREATININE 0.58 mg/dl (0.60-1.40); POTASSIUM 2.9 mmol/L (3.5-5.1)
[2017-09-23 07:36] VITALS: BP 100/65; PULSE 92; TEMP 37.2; O2SAT 92
[2017-09-23] MEDS ORDERED: POTASSIUM CHLORIDE 10 MEQ TABCR PO STA (08:40)
[2017-09-23] MEDS: TAMSULOSIN HCL 0.4 MG CAP PO SCH (08:54)
[2017-09-23] MEDS: ENOXAPARIN 40 MG/0.4 ML SYR SC SCH (08:56)
[2017-09-23] MEDS ORDERED: MAGNESIUM SULFATE 1GM / D5W 1 GM in PREMIXED IN D5W 100 ML IV ONE (09:00)
[2017-09-23] MEDS: POTASSIUM CHLR 10 MEQ / WTR 10 MEQ in PREMIXED WATER 100 ML IV SCH ×2 (09:22→10:49)
[2017-09-23] MEDS: ACETAMINOPHEN 325 MG TAB PO PRN (10:09)
[2017-09-23 11:22] VITALS: BP 125/83; PULSE 98; TEMP 37; O2SAT 93
--- NOTE | 2017-09-23 11:23 | Progress Note ---
Internal Med Progress Note Date of Service: Sep 23, 2017. Provider Documentation: SUBJECTIVE: The patient was seen and examined Admitted with Delirium Tremens-doubt any seizure H/O Recurrent admissions with symptoms related to Alcohol Continues to have back pain Minimal tremors Complains of Back pain Denies any other symptoms No More tremors OBJECTIVE: Vital Signs-as noted below Exam: General-No distress at rest Eyes-normal ENT-normal Neck-supple Lungs-clear to ausucltate bilaterally Heart-Regular Abdomen-Benign Extremities-Trace edema bilaterally Neuro-AAOx3 Minimal tremors Lab data as noted below. ASSESSMENT & PLAN: 52-year-old alcoholic male with recent hospital admission for alcohol withdrawal presents with delirium tremens with seizure. Electrolytes Abnormalities Potassium and Mag are low Secondary to Alcohol use Will supplement and recheck Delirium tremens with seizure-likely related to alcohol withdrawal -known history of heavy alcohol use and alcohol withdrawal in the last 2 weeks. No seizures since admission and given benzo. Seizure precautions. Alcohol withdrawal protocol with frequent reassessment by nursing staff on telemetry. Gabapentin protocol begun. Case management consult requested. Will need placement -awaiting Clinically stable Minimal tremors in hands-continue Gabapentin protocol Heavy alcohol use Recurrent admissions with Alcohol related issues Very noncompliant Will need in patient rehab Willing to go to Rehab Ataxia with ambulatory dysfunction and multiple falls-PT/OT evaluation. Secondary to chronic use of Alcohol Likely to need placement Hypertension-uncontrolled secondary to #1. Continue Ativan, gabapentin, and atenolol. Acute urinary retention-Nielsen placement in ER with greater than 1000 cc return. Will monitor Will add Flomax . Hyponatremia-likely secondary to alcoholism and poor p.o. intake, increased from prior hospitalization. Hypokalemia-replace, repeat PRP in a.m. Remains borderline Low Will replace and monitor Elevated lactate-likely secondary to seizure activity, repeat after IV fluids. Normalized DVT prophylaxis-Lovenox Full code Awaited Vital Signs: Date Time Temp Pulse Resp B/P (MAP) Pulse Ox O2 Delivery O2 Flow Rate FiO2 09/23/17 07:36 37.2 92 18 100/65 (77) 92 Room Air 09/23/17 04:00 Room Air 09/23/17 03:55 36.9 89 16 96 Room Air 09/23/17 00:00 Room Air 09/22/17 23:59 37.1 94 16 135/90 (105) 96 Room Air 09/22/17 20:00 Room Air 09/22/17 18:52 36.3 88 22 161/96 (117) 98 Room Air 09/22/17 16:00 Room Air 09/22/17 15:21 36.7 100 20 142/97 (112) 94 Room Air 09/22/17 12:00 Room Air 09/22/17 11:57 37.4 20 127/80 (96) 94 Room Air Lab Results: Results Past 24 Hours Test 09/23/17 05:23 Range/Units Sodium Level 130 136-145 mmol/L Potassium Level 2.9 3.5-5.1 mmol/L Chloride Level 94 98-107 mmol/L Carbon Dioxide Level 27 21-32 mmol/L Anion Gap 9.0 3-11 mmol/L Blood Urea Nitrogen 4 7-18 mg/dl Creatinine 0.58 0.60-1.40 mg/dl Est Creatinine Clear Calc Drug Dose 125.2 ml/min Estimated GFR () 134.9 Estimated GFR (Non- 116.4 BUN/Creatinine Ratio 7.0 10-20 Random Glucose 111 70-99 mg/dl Calcium Level 8.5 8.5-10.1 mg/dl Magnesium Level 1.6 1.8-2.4 mg/dl
[2017-09-23 15:15] VITALS: BP 137/76; PULSE 87; TEMP 36.3; O2SAT 95
[2017-09-23 16:56] LABS: CALCIUM 8.3 mg/dl (8.5-10.1); CREATININE 0.53 mg/dl (0.60-1.40); POTASSIUM 3.8 mmol/L (3.5-5.1)
[2017-09-23 18:10] VITALS: BP 137/76; PULSE 87; TEMP 36.3; O2SAT 95
[2017-09-23] MEDS: SODIUM CHLORIDE 1 GM TAB PO SCH (19:39)
[2017-09-23 23:20] VITALS: BP 147/90; PULSE 85; TEMP 37; O2SAT 97
[2017-09-24 08:06] VITALS: BP 142/84; PULSE 100; TEMP 36.5; O2SAT 92
[2017-09-24] MEDS: SODIUM CHLORIDE 1 GM TAB PO SCH ×2 (08:16→20:22)
[2017-09-24] MEDS: TAMSULOSIN HCL 0.4 MG CAP PO SCH (08:16)
[2017-09-24] MEDS: ENOXAPARIN 40 MG/0.4 ML SYR SC SCH (08:18)
[2017-09-24 09:50] LABS: CALCIUM 8.7 mg/dl (8.5-10.1); CREATININE 0.56 mg/dl (0.60-1.40); POTASSIUM 3.7 mmol/L (3.5-5.1)
--- NOTE | 2017-09-24 13:51 | Progress Note ---
Internal Med Progress Note Date of Service: Sep 24, 2017. Provider Documentation: SUBJECTIVE: The patient was seen and examined Admitted with Delirium Tremens-doubt any seizure H/O Recurrent admissions with symptoms related to Alcohol Complains of Back pain No other symptoms OBJECTIVE: Vital Signs-as noted below Exam: General-No distress at rest Eyes-normal ENT-normal Neck-supple Lungs-clear to ausucltate bilaterally Heart-Regular Abdomen-Benign Extremities-Trace edema bilaterally Neuro-AAOx3 Minimal tremors No focal sensory and or motor deficit Lab data as noted below. ASSESSMENT & PLAN: 52-year-old alcoholic male with recent hospital admission for alcohol withdrawal presents with delirium tremens with seizure. Electrolytes Abnormalities Potassium and Mag are low Secondary to Alcohol use Will supplement and recheck Sodium is a little better Delirium tremens with seizure-likely related to alcohol withdrawal -known history of heavy alcohol use and alcohol withdrawal in the last 2 weeks. No seizures since admission and given benzo. Seizure precautions. Alcohol withdrawal protocol with frequent reassessment by nursing staff on telemetry. Gabapentin protocol begun. Case management consult requested. Will need placement -awaiting Minimal tremors in hands-continue Gabapentin protocol No more tremors Heavy alcohol use Recurrent admissions with Alcohol related issues Very noncompliant Will need in patient rehab Willing to go to Rehab Ataxia with ambulatory dysfunction and multiple falls-PT/OT evaluation. Secondary to chronic use of Alcohol Hypertension-uncontrolled secondary to #1. Continue atenolol. Acute urinary retention-Nielsen placement in ER with greater than 1000 cc return. Will monitor Will add Flomax . Hyponatremia-likely secondary to alcoholism and poor p.o. intake, increased from prior hospitalization. Hypokalemia-replace, repeat PRP in a.m. Remains borderline Low Will replace and monitor-a little better today 09/24/17 Elevated lactate-likely secondary to seizure activity, repeat after IV fluids. Normalized DVT prophylaxis-Lovenox Full code Awaited Vital Signs: Date Time Temp Pulse Resp B/P (MAP) Pulse Ox O2 Delivery O2 Flow Rate FiO2 09/24/17 08:06 36.5 100 18 142/84 (103) 92 Room Air 09/24/17 08:00 Room Air 09/24/17 00:01 Room Air 09/23/17 23:20 37.0 85 18 147/90 (109) 97 Room Air 09/23/17 20:01 Room Air 09/23/17 18:10 36.3 87 20 95 09/23/17 16:00 Room Air 09/23/17 15:15 36.3 87 20 137/76 (96) 95 Room Air Lab Results: Results Past 24 Hours Test 09/23/17 16:08 09/24/17 08:10 Range/Units Sodium Level 125 129 136-145 mmol/L Potassium Level 3.8 3.7 3.5-5.1 mmol/L Chloride Level 93 95 98-107 mmol/L Carbon Dioxide Level 25 25 21-32 mmol/L Anion Gap 7.0 9.0 3-11 mmol/L Blood Urea Nitrogen 7 4 7-18 mg/dl Creatinine 0.53 0.56 0.60-1.40 mg/dl Est Creatinine Clear Calc Drug Dose 145.9 138.1 ml/min Estimated GFR () 140.0 136.9 Estimated GFR (Non- 120.8 118.1 BUN/Creatinine Ratio 12.3 7.5 10-20 Random Glucose 108 110 70-99 mg/dl Calcium Level 8.3 8.7 8.5-10.1 mg/dl Phosphorus Level 4.0 2.5-4.9 mg/dl Magnesium Level 1.8 1.8-2.4 mg/dl
[2017-09-24] MEDS: ACETAMINOPHEN 325 MG TAB PO PRN (15:36)
[2017-09-24] MEDS ORDERED: GABAPENTIN 600MG Q24H DOSE PO SCH (16:00)
[2017-09-24 16:06] VITALS: BP 133/93; PULSE 99; TEMP 36.6; O2SAT 98
[2017-09-24 22:29] VITALS: BP 155/96; PULSE 75; TEMP 36.6; O2SAT 97
[2017-09-25 06:01] LABS: HEMATOCRIT 41.1 % (42-52); HEMOGLOBIN 14.4 g/dL (14.0-18.0); MEAN CELL VOLUME 92.2 fL (80-100); MEAN CORPUSCULAR HEMOGLOBIN 32.3 pg (25-34); MEAN PLATELET VOLUME 9.1 fL (7.4-10.4); PLATELET COUNT 205 K/uL (130-400); RED CELL DISTRIBUTION WIDTH SD 50.4 fL (36.4-46.3); WHITE BLOOD COUNT 9.07 K/uL (4.8-10.8)
[2017-09-25 06:25] LABS: CALCIUM 9.2 mg/dl (8.5-10.1); CREATININE 0.68 mg/dl (0.60-1.40); PHOSPHORUS 3.5 mg/dl (2.5-4.9); POTASSIUM 3.8 mmol/L (3.5-5.1)
[2017-09-25] MEDS: SODIUM CHLORIDE 1 GM TAB PO SCH ×2 (07:17→20:00)
[2017-09-25] MEDS: TAMSULOSIN HCL 0.4 MG CAP PO SCH (07:17)
[2017-09-25] MEDS: ENOXAPARIN 40 MG/0.4 ML SYR SC SCH (07:17)
[2017-09-25 08:14] VITALS: BP 119/86; PULSE 94; TEMP 36.6; O2SAT 96
[2017-09-25] MEDS: TRAMADOL HCL 50 MG TAB PO PRN ×2 (11:43→16:43)
[2017-09-25] MEDS ORDERED: MAGNESIUM CHLORIDE 64MG DELAYED REL TAB PO ONE (14:40)
--- NOTE | 2017-09-25 14:44 | Progress Note ---
Internal Med Progress Note Date of Service: Sep 25, 2017. Provider Documentation: SUBJECTIVE: The patient was seen and examined Admitted with Delirium Tremens-doubt any seizure H/O Recurrent admissions with symptoms related to Alcohol Complains of Back pain No other symptoms Remains stable Awaiting to go to inpatient rehab OBJECTIVE: Vital Signs-as noted below Exam: General-No distress at rest Eyes-normal ENT-normal Neck-supple Lungs-clear to ausucltate bilaterally Heart-Regular Abdomen-Benign Extremities-Trace edema bilaterally Neuro-AAOx3 Minimal tremors No focal sensory and or motor deficit Lab data as noted below. ASSESSMENT & PLAN: 52-year-old alcoholic male with recent hospital admission for alcohol withdrawal presents with delirium tremens with seizure. Electrolytes Abnormalities- Potassium and Mag are low Secondary to Alcohol use Will supplement and recheck Sodium is a little better Delirium tremens with seizure-likely related to alcohol withdrawal -known history of heavy alcohol use and alcohol withdrawal in the last 2 weeks. No seizures since admission and given benzo. Seizure precautions. Alcohol withdrawal protocol with frequent reassessment by nursing staff on telemetry. Gabapentin protocol begun. Case management consult requested. Will need placement -awaiting Minimal tremors in hands-continue Gabapentin protocol No more tremors Heavy alcohol use Recurrent admissions with Alcohol related issues Very noncompliant Will need in patient rehab Willing to go to Rehab Ataxia with ambulatory dysfunction and multiple falls-PT/OT evaluation. Secondary to chronic use of Alcohol Hypertension-uncontrolled secondary to #1. Continue atenolol. Acute urinary retention-Nielsen placement in ER with greater than 1000 cc return. Will monitor Will add Flomax . Hyponatremia-likely secondary to alcoholism and poor p.o. intake, increased from prior hospitalization. Hypokalemia-replace, repeat PRP in a.m. Remains borderline Low Will replace and monitor-a little better today 09/24/17 Sodium is 127 today 09/25/17 Continue Fluid restriction and sodium tabs Recheck in AM Elevated lactate-likely secondary to seizure activity, repeat after IV fluids. Normalized DVT prophylaxis-Lovenox Full code Awaited Vital Signs: Date Time Temp Pulse Resp B/P (MAP) Pulse Ox O2 Delivery O2 Flow Rate FiO2 09/25/17 08:14 36.6 94 16 119/86 (97) 96 Room Air 09/25/17 08:00 Room Air 09/25/17 00:01 Room Air 09/24/17 22:29 36.6 75 18 155/96 (115) 97 Room Air 09/24/17 20:15 Room Air 09/24/17 16:06 36.6 99 18 133/93 (106) 98 Room Air 09/24/17 16:00 Room Air Lab Results: Results Past 24 Hours Test 09/25/17 05:24 Range/Units White Blood Count 9.07 4.8-10.8 K/uL Red Blood Count 4.46 4.7-6.1 M/uL Hemoglobin 14.4 14.0-18.0 g/dL Hematocrit 41.1 42-52 % Mean Corpuscular Volume 92.2 80-100 fL Mean Corpuscular Hemoglobin 32.3 25-34 pg Mean Corpuscular Hemoglobin Concent 35.0 32-36 g/dl RDW Standard Deviation 50.4 36.4-46.3 fL RDW Coefficient of Variation 15.0 11.5-14.5 % Platelet Count 205 130-400 K/uL Mean Platelet Volume 9.1 7.4-10.4 fL Sodium Level 127 136-145 mmol/L Potassium Level 3.8 3.5-5.1 mmol/L Chloride Level 93 98-107 mmol/L Carbon Dioxide Level 24 21-32 mmol/L Anion Gap 10.0 3-11 mmol/L Blood Urea Nitrogen 8 7-18 mg/dl Creatinine 0.68 0.60-1.40 mg/dl Est Creatinine Clear Calc Drug Dose 113.7 ml/min Estimated GFR () 126.4 Estimated GFR (Non- 109.0 BUN/Creatinine Ratio 11.5 10-20 Random Glucose 111 70-99 mg/dl Calcium Level 9.2 8.5-10.1 mg/dl Phosphorus Level 3.5 2.5-4.9 mg/dl Magnesium Level 1.7 1.8-2.4 mg/dl
[2017-09-25 15:53] VITALS: BP 126/81; PULSE 75; TEMP 36.9; O2SAT 96
[2017-09-25] MEDS: MAGNESIUM CHLORIDE 64MG DELAYED REL TAB PO SCH (20:00)
[2017-09-25] MEDS: ACETAMINOPHEN 325 MG TAB PO PRN (20:04)
[2017-09-25 22:40] VITALS: BP 153/84; PULSE 59; TEMP 36.3; O2SAT 99
[2017-09-26] MEDS: ACETAMINOPHEN 325 MG TAB PO PRN ×3 (06:34→23:34)
[2017-09-26] MEDS: SODIUM CHLORIDE 1 GM TAB PO SCH ×2 (07:10→21:05)
[2017-09-26] MEDS: TAMSULOSIN HCL 0.4 MG CAP PO SCH (07:10)
[2017-09-26] MEDS: MAGNESIUM CHLORIDE 64MG DELAYED REL TAB PO SCH ×2 (07:10→21:05)
[2017-09-26] MEDS: ENOXAPARIN 40 MG/0.4 ML SYR SC SCH (07:11)
[2017-09-26 07:37] VITALS: BP 179/99; PULSE 70; TEMP 36.6; O2SAT 100
[2017-09-26 15:15] VITALS: BP 140/86; PULSE 78; TEMP 36.7; O2SAT 94
--- NOTE | 2017-09-26 19:13 | Progress Note ---
Internal Med Progress Note Date of Service: Sep 26, 2017. Provider Documentation: SUBJECTIVE: complains of fluid restriction wants to have sidra carson denies any difficulty swallowing no chest pain or sob no abdominal pain no tremors OBJECTIVE: Vital Signs-as noted below Exam: General-alert and oriented. Not in distress ENT-Normal hearing Neck-no neck masses Lungs-cta b/l no wheezing or crackles Heart-S1 and S2 heard regular rate and rhythm no murmurs Abdomen-Soft bowel sounds present non tender no distension Extremities-no edema no erythema Neuro-alert and awake moves extremities Lab data as noted below. ASSESSMENT & PLAN: 52-year-old alcoholic male with recent hospital admission for alcohol withdrawal presents with delirium tremens with seizure. Electrolytes Abnormalities- Secondary to Alcohol use Will replace Sodium is a little better Delirium tremens with seizure-likely related to alcohol withdrawal known history of heavy alcohol use and alcohol withdrawal in the last 2 weeks. No seizures since admission and given benzo. Seizure precautions. on alcohol withdrawal protocol with gabapentin and Ativan seems stable currently. 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 Secondary to chronic use of Alcohol Hypertension-uncontrolled secondary to #1. Continue atenolol. Acute urinary retention-Nielsen placement in ER with greater than 1000 cc return. Will monitor added Flomax . Hyponatremia-likely secondary to alcoholism and poor p.o. intake, increased from prior hospitalization. Sodium is 127 today 09/25/17 Continue Fluid restriction and sodium tabs f/u labs in am Elevated lactate-likely secondary to seizure activity, repeat after IV fluids. Normalized DVT prophylaxis-Lovenox Full code DISPOSITION to be determined likely rehab social service for d/c planning Vital Signs: Date Time Temp Pulse Resp B/P (MAP) Pulse Ox O2 Delivery O2 Flow Rate FiO2 09/26/17 16:00 Room Air 09/26/17 15:15 36.7 78 18 140/86 (104) 94 Room Air 09/26/17 08:00 Room Air 09/26/17 07:37 36.6 70 16 179/99 (125) 100 Room Air 09/26/17 00:00 Room Air 09/25/17 22:40 36.3 59 18 153/84 (107) 99 Room Air
[2017-09-26] MEDS: TRAMADOL HCL 50 MG TAB PO PRN (19:20)
[2017-09-26 23:56] VITALS: BP 132/78; PULSE 64; TEMP 36.7; O2SAT 97
[2017-09-27] MEDS: TRAMADOL HCL 50 MG TAB PO PRN ×2 (03:03→08:40)
[2017-09-27 07:20] LABS: BASO % 0.5 %; BASO ABS # 0.03 K/uL (0-0.2); EOS % 3.6 %; EOS ABS # 0.21 K/uL (0-0.5); HEMATOCRIT 34.9 % (42-52); HEMOGLOBIN 12.1 g/dL (14.0-18.0); IG# 0.02 K/uL (0.00-0.02); LYMPH % 27.2 %; LYMPH ABS # 1.58 K/uL (1.2-3.4); MEAN CELL VOLUME 90.9 fL (80-100); MEAN CORPUSCULAR HEMOGLOBIN 31.5 pg (25-34); MEAN CORPUSCULAR HGB CONC 34.7 g/dl (32-36); MEAN PLATELET VOLUME 8.7 fL (7.4-10.4); MONO % 20.2 %; MONO ABS # 1.17 K/uL (0.11-0.59); NEUT % 48.2 %; NEUT ABS # 2.79 K/uL (1.4-6.5); PLATELET COUNT 194 K/uL (130-400); RED CELL DISTRIBUTION WIDTH SD 50.3 fL (36.4-46.3)
[2017-09-27 07:51] VITALS: BP 157/90; PULSE 78; TEMP 36.7; O2SAT 96
[2017-09-27 07:55] LABS: CALCIUM 8.5 mg/dl (8.5-10.1); CREATININE 0.46 mg/dl (0.60-1.40)
[2017-09-27] MEDS: SODIUM CHLORIDE 1 GM TAB PO SCH ×2 (08:35→19:46)
[2017-09-27] MEDS: TAMSULOSIN HCL 0.4 MG CAP PO SCH (08:35)
[2017-09-27] MEDS: MAGNESIUM CHLORIDE 64MG DELAYED REL TAB PO SCH ×2 (08:35→19:46)
[2017-09-27] MEDS: ENOXAPARIN 40 MG/0.4 ML SYR SC SCH (08:36)
[2017-09-27] MEDS: ACETAMINOPHEN 325 MG TAB PO PRN ×2 (12:17→16:01)
--- NOTE | 2017-09-27 14:11 | Progress Note ---
Internal Med Progress Note Date of Service: Sep 27, 2017. Provider Documentation: SUBJECTIVE: complains of severe back pain says he is not able to eat much because of pain' says he has to come back if he is discharged without taking care of his pain denies any chest pain or sob afebrile no nausea OBJECTIVE: Vital Signs-as noted below Exam: General-alert and oriented. Not in distress ENT-Normal hearing Neck-no neck masses Lungs-cta b/l no wheezing or crackles Heart-S1 and S2 heard regular rate and rhythm no murmurs Abdomen-Soft bowel sounds present non tender no distension Extremities-no edema no erythema Neuro-alert and awake moves extremities Lab data as noted below. ASSESSMENT & PLAN: 52-year-old alcoholic male with recent hospital admission for alcohol withdrawal presents with delirium tremens with seizure. Electrolytes Abnormalities- Secondary to Alcohol use Will replace f/u labs Delirium tremens with seizure-likely related to alcohol withdrawal known history of heavy alcohol use and alcohol withdrawal in the last 2 weeks. No seizures since admission and given benzo. Seizure precautions. was on alcohol withdrawal protocol with gabapentin and Ativan seems stable currently. 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 Secondary to chronic use of Alcohol Hypertension-uncontrolled secondary to #1. Continue atenolol.will monitor Acute urinary retention-Nielsen placement in ER with greater than 1000 cc return. Will monitor added Flomax . Hyponatremia-likely secondary to alcoholism and poor p.o. intake, increased from prior hospitalization. Sodium is 127 today 09/25/17 Continue Fluid restriction and sodium tabs f/u labs in am Elevated lactate-likely secondary to seizure activity, repeat after IV fluids. Normalized DVT prophylaxis-Lovenox Full code DISPOSITION to be determined possible d/c in 1-2 days social service for d/c planning Vital Signs: Date Time Temp Pulse Resp B/P (MAP) Pulse Ox O2 Delivery O2 Flow Rate FiO2 09/27/17 07:51 36.7 78 16 157/90 (112) 96 Room Air 09/27/17 07:50 Room Air 09/26/17 23:56 36.7 64 18 132/78 (96) 97 Room Air 09/26/17 19:10 Room Air 09/26/17 16:00 Room Air 09/26/17 15:15 36.7 78 18 140/86 (104) 94 Room Air Lab Results: Results Past 24 Hours Test 09/27/17 06:35 Range/Units White Blood Count 5.80 4.8-10.8 K/uL Red Blood Count 3.84 4.7-6.1 M/uL Hemoglobin 12.1 14.0-18.0 g/dL Hematocrit 34.9 42-52 % Mean Corpuscular Volume 90.9 80-100 fL Mean Corpuscular Hemoglobin 31.5 25-34 pg Mean Corpuscular Hemoglobin Concent 34.7 32-36 g/dl Platelet Count 194 130-400 K/uL Mean Platelet Volume 8.7 7.4-10.4 fL Neutrophils (%) (Auto) 48.2 % Lymphocytes (%) (Auto) 27.2 % Monocytes (%) (Auto) 20.2 % Eosinophils (%) (Auto) 3.6 % Basophils (%) (Auto) 0.5 % Neutrophils # (Auto) 2.79 1.4-6.5 K/uL Lymphocytes # (Auto) 1.58 1.2-3.4 K/uL Monocytes # (Auto) 1.17 0.11-0.59 K/uL Eosinophils # (Auto) 0.21 0-0.5 K/uL Basophils # (Auto) 0.03 0-0.2 K/uL RDW Standard Deviation 50.3 36.4-46.3 fL RDW Coefficient of Variation 15.0 11.5-14.5 % Immature Granulocyte % (Auto) 0.3 % Immature Granulocyte # (Auto) 0.02 0.00-0.02 K/uL Sodium Level 127 136-145 mmol/L Potassium Level 4.0 3.5-5.1 mmol/L Chloride Level 94 98-107 mmol/L Carbon Dioxide Level 24 21-32 mmol/L Anion Gap 9.0 3-11 mmol/L Blood Urea Nitrogen 7 7-18 mg/dl Creatinine 0.46 0.60-1.40 mg/dl Est Creatinine Clear Calc Drug Dose 168.1 ml/min Estimated GFR () 148.4 Estimated GFR (Non- 128.0 BUN/Creatinine Ratio 14.5 10-20 Random Glucose 88 70-99 mg/dl Calcium Level 8.5 8.5-10.1 mg/dl Magnesium Level 1.8 1.8-2.4 mg/dl
[2017-09-27 15:55] VITALS: BP 122/82; PULSE 64; TEMP 36.4; O2SAT 98
[2017-09-27 16:00] VITALS: O2SAT 98
--- NOTE | 2017-09-27 17:58 | DIAGNOSTIC IMAGING REPORT ---
CT SCAN OF THE LUMBAR SPINE WITHOUT IV CONTRAST CLINICAL HISTORY: Lumbar back pain. COMPARISON STUDY: Abdominal CT dated 07/18/2016. TECHNIQUE: CT scan of the lumbar spine is performed from the lower thoracic spine to the sacrum. Images are reviewed in the axial, sagittal, and coronal planes. IV contrast was not administered for this examination. A dose lowering technique was utilized adhering to the principles of ALARA. CT DOSE: 395.87 mGy.cm FINDINGS: The skeletal structures appear osteopenic. There is a mild to moderate compression fracture of L1. This is age indeterminant, but new from 07/18/2016. There are small retropulsed fragments. These are retropulsed by up to 6 mm. Vertebral body height is otherwise maintained throughout the lumbar spine. Alignment is preserved. The transverse and spinous processes are intact. There is no spondylolysis. No lytic or blastic bony lesion is seen. Tiny anterior osteophytes are seen throughout. There is mild multilevel degenerative disc space narrowing. Small disc bulges are suspected at L4-L5 and L5-S1. There is no CT evidence of large disc herniation or high-grade central canal stenosis. The visualized sacrum and bony pelvis appear intact. The paraspinous soft tissues are within normal limits. There is moderate to advanced atherosclerotic calcification of the abdominal aorta. No retroperitoneal adenopathy is seen. IMPRESSION: 1. There is a mild to moderate compression fracture of L1. This is age indeterminant, but likely acute to subacute and is new from the 07/18/2016 examination. 2. No additional bony abnormality is identified involving the lumbar spine. 3. Mild spondylotic change as above. Dictated: 09/27/2017 4:15 PM Transcribed: 09/27/2017 5:57 PM [email or web address] Electronically signed by: Froy Lau M.D. 09/27/2017 6:01 PM Dictated Date/Time: 09/27/2017 4:15 PM
[2017-09-27 22:56] VITALS: BP 147/94; PULSE 71; TEMP 36.9; O2SAT 98
[2017-09-28] MEDS: ACETAMINOPHEN 325 MG TAB PO PRN (05:49)
[2017-09-28 07:38] VITALS: BP 160/81; PULSE 63; TEMP 36.5; O2SAT 96
[2017-09-28 07:41] LABS: BASO % 0.5 %; BASO ABS # 0.03 K/uL (0-0.2); EOS % 2.9 %; EOS ABS # 0.18 K/uL (0-0.5); HEMATOCRIT 37.5 % (42-52); HEMOGLOBIN 13.2 g/dL (14.0-18.0); IG# 0.02 K/uL (0.00-0.02); LYMPH % 23.8 %; MEAN CELL VOLUME 92.1 fL (80-100); MEAN CORPUSCULAR HEMOGLOBIN 32.4 pg (25-34); MEAN CORPUSCULAR HGB CONC 35.2 g/dl (32-36); MONO % 21.7 %; MONO ABS # 1.37 K/uL (0.11-0.59); NEUT % 50.8 %; NEUT ABS # 3.21 K/uL (1.4-6.5); PLATELET COUNT 223 K/uL (130-400); RED CELL DISTRIBUTION WIDTH CV 14.8 % (11.5-14.5); RED CELL DISTRIBUTION WIDTH SD 50.3 fL (36.4-46.3); WHITE BLOOD COUNT 6.31 K/uL (4.8-10.8)
[2017-09-28] MEDS: SODIUM CHLORIDE 1 GM TAB PO SCH (08:00)
[2017-09-28] MEDS: MAGNESIUM CHLORIDE 64MG DELAYED REL TAB PO SCH (08:00)
[2017-09-28 08:11] LABS: CALCIUM 8.8 mg/dl (8.5-10.1); CREATININE 0.51 mg/dl (0.60-1.40)
[2017-09-28 08:45] VITALS: O2SAT 96
--- NOTE | 2017-09-28 09:51 | Orthopedic Consultation ---
Orthopedic Consultation Date of Consultation: Sep 28, 2017. Attending Physician: Marcus Dalton MD Reason for Consultation: Back pain History of Present Illness This is a 52-year-old male that presents the emergency room with a history of alcohol abuse. He complains of back pain. A CAT scan obtained does demonstrate most likely an acute L1 compression fracture. Upon my discussion with him this morning he states he has pain at the thoracolumbar junction radiating around his ribs. He denies any leg pain. He is mostly concerned with his esophageal strictures this morning. He states his back pain is controlled with rest. Past Medical/Surgical History Medical Problems: (1) Abnormal ECG Status: Acute (2) Alcohol dependence Status: Acute (3) Alcohol intoxication Status: Acute (4) Alcohol withdrawal Status: Acute (5) Alcohol withdrawal Status: Acute (6) Anemia Status: Acute (7) Ataxia Status: Acute (8) Ataxia Status: Acute (9) Closed left clavicular fracture Status: Acute (10) Elbow fracture, left Status: Acute (11) Fall as cause of accidental injury in residential institution as place of occurrence Status: Acute (12) Generalized weakness Status: Acute (13) Hip pain, right Status: Acute (14) Homeless Status: Acute (15) Hypokalemia Status: Acute (16) Hypophosphatemia Status: Acute (17) Hypotension Status: Acute (18) Intertrochanteric fracture of right hip Status: Acute (19) Lactic acidosis Status: Acute (20) Malnutrition Status: Acute (21) Pneumonia Status: Acute (22) Seizure Status: Acute Family History Hypertension Social History Smoking Status: Never Smoker Smokeless Tobacco Use: Unknown Alcohol Use: heavy Drug Use: none Marital Status: single Housing Status: other Occupation Status: unemployed Allergies Coded Allergies: Penicillins (Verified Adverse Reaction, Mild, TIRED, 09/04/17) Home Medications Scheduled Atenolol (Tenormin), 1 TAB PO DAILY Thiamine HCl (Vitamin B-1), 50 MG PO DAILY Miscellaneous Medications Folic Acid (Folic Acid), 1 MG PO Current Inpatient Medications Current Inpatient Medications Medications (Trade) Dose Ordered Sig/Jaylene Route Start Time Stop Time Status Last Admin Dose Admin Enoxaparin Sodium (Lovenox Inj) 40 mg DAILY SC 09/21/17 09:00 10/21/17 08:59 3/14/18 08:36 40 MG Acetaminophen (Tylenol Tab) 650 mg Q4H PRN PO 09/21/17 03:15 10/21/17 03:14 09/28/17 05:49 650 MG Ondansetron HCl (Zofran Inj) 4 mg Q6H PRN IV 09/21/17 03:15 10/21/17 03:14 Polyethylene (Miralax Powder Packet) 17 gm DAILY PRN PO 09/21/17 03:15 10/21/17 03:14 Lorazepam (Ativan Tab) PRN Dosing -Active Protocol UD PRN PO 09/21/17 03:15 10/21/17 03:14 09/21/17 16:21 1 MG Tamsulosin HCl (Flomax Cap) 0.4 mg QAM PO 09/22/17 09:00 10/22/17 08:59 09/27/17 08:35 0.4 MG Tramadol HCl (Ultram Tab) 50 mg Q4H PRN PO 09/22/17 13:30 10/22/17 13:29 09/27/17 08:40 50 MG Sodium Chloride (Sodium Chloride Tab) 1 gm BID PO 09/23/17 20:00 10/23/17 20:59 09/27/17 19:46 1 GM Magnesium Chloride (Slow-Mag Tab) 64 mg BID PO 09/25/17 20:00 10/25/17 19:59 09/27/17 19:46 64 MG Atenolol (Tenormin Tab) 25 mg DAILY PO 09/27/17 08:00 10/27/17 07:59 09/27/17 08:35 25 MG Physical Exam Date Time Temp Pulse Resp B/P (MAP) Pulse Ox O2 Delivery O2 Flow Rate FiO2 09/28/17 07:38 36.5 63 16 160/81 (107) 96 Room Air 09/28/17 00:00 Room Air 09/27/17 22:56 36.9 71 16 147/94 (111) 98 Room Air 09/27/17 16:00 98 Room Air 09/27/17 15:55 36.4 64 18 122/82 (95) 98 Room Air On exam he has no significant or severe discomfort with palpation or percussion of the thoracolumbar spine. He stands and ambulates 8 about the room with a narrow steady gait. Does not appear to be in marked discomfort. Sensory is symmetric and intact bilateral extremities. Laboratory Results Last 24 Hours Test 09/28/17 06:52 White Blood Count 6.31 K/uL Red Blood Count 4.07 M/uL Hemoglobin 13.2 g/dL Hematocrit 37.5 % Mean Corpuscular Volume 92.1 fL Mean Corpuscular Hemoglobin 32.4 pg Mean Corpuscular Hemoglobin Concent 35.2 g/dl Platelet Count 223 K/uL Mean Platelet Volume 9.0 fL Neutrophils (%) (Auto) 50.8 % Lymphocytes (%) (Auto) 23.8 % Monocytes (%) (Auto) 21.7 % Eosinophils (%) (Auto) 2.9 % Basophils (%) (Auto) 0.5 % Neutrophils # (Auto) 3.21 K/uL Lymphocytes # (Auto) 1.50 K/uL Monocytes # (Auto) 1.37 K/uL Eosinophils # (Auto) 0.18 K/uL Basophils # (Auto) 0.03 K/uL RDW Standard Deviation 50.3 fL RDW Coefficient of Variation 14.8 % Immature Granulocyte % (Auto) 0.3 % Immature Granulocyte # (Auto) 0.02 K/uL Sodium Level 127 mmol/L Potassium Level 4.0 mmol/L Chloride Level 95 mmol/L Carbon Dioxide Level 24 mmol/L Anion Gap 8.0 mmol/L Blood Urea Nitrogen 8 mg/dl Creatinine 0.51 mg/dl Est Creatinine Clear Calc Drug Dose 151.6 ml/min Estimated GFR () 142.2 Estimated GFR (Non- 122.7 BUN/Creatinine Ratio 15.7 Random Glucose 88 mg/dl Calcium Level 8.8 mg/dl Magnesium Level 2.0 mg/dl Assessment & Plan Assessment L1 compression fracture. Plan at this time I do lengthy discussion with this patient regarding possible LSO brace. He has declined at this time. He will notify us if he would like to proceed with an orthotic device. Otherwise I have emphasized he should not lift more than 5 pounds and walk for exercise only. No other restrictions at this time.
[2017-09-28] MEDS: TAMSULOSIN HCL 0.4 MG CAP PO SCH (10:00)
[2017-09-28] MEDS: ENOXAPARIN 40 MG/0.4 ML SYR SC SCH (10:07)
--- NOTE | 2017-09-28 10:59 | Progress Note ---
Internal Med Progress Note Date of Service: Sep 28, 2017. Provider Documentation: SUBJECTIVE: says has back pain but ok now now is main problem is difficulty swallowing not able to eat anything from last night says his oesophagus was dilated three times in the past denies chest pain or sob no abdominal pain no nausea OBJECTIVE: Vital Signs-as noted below Exam: General-alert and oriented. Not in distress ENT-Normal hearing Neck-no neck masses Lungs-cta b/l no wheezing or crackles Heart-S1 and S2 heard regular rate and rhythm no murmurs Abdomen-Soft bowel sounds present non tender no distension Extremities-no edema no erythema Neuro-alert and awake moves extremities Lab data as noted below. ASSESSMENT & PLAN: 52-year-old alcoholic male with recent hospital admission for alcohol withdrawal presents with delirium tremens with seizure.Multiple admissions for same problem. management following at home too. But patient is generally non compliant with instructions Electrolytes Abnormalities- Secondary to Alcohol use Will replace f/u labs . potassium and mg ok. Na 127 today Delirium tremens with seizure-likely related to alcohol withdrawal known history of heavy alcohol use and alcohol withdrawal in the last 2 weeks. No seizures since admission and given benzo. Seizure precautions. was on alcohol withdrawal protocol with gabapentin and Ativan seems stable currently and off of gabapentin. Heavy alcohol use Recurrent admissions with Alcohol related issues Very noncompliant Willing to go to Rehab social service worker for d/c planning-[facility] accept him back plan for home with services Severe back pain will f/u ct scan- L1 compression fx seen by ortho- no plan for brace as patient refusing and also ambulating fine Dysphagia hx of oesophageal stricture and was dilated thrice as per patient started last night consulted GI but resolved now and wants to go home Gi recommends to picker / packer his prescriptions for ppi and Diflucan to f/u with his regular provider Ataxia with ambulatory dysfunction and multiple falls-PT/OT evaluation. Secondary to chronic use of Alcohol Hypertension- Continue atenolol.will monitor Acute urinary retention-Nielsen placement in ER with greater than 1000 cc return. Will monitor added Flomax . Hyponatremia-likely secondary to alcoholism and poor p.o. intake, increased from prior hospitalization. Sodium is 127 today 09/25/17 Continue Fluid restriction and sodium tabs f/u labs with pcp Elevated lactate-likely secondary to seizure activity, repeat after IV fluids. Normalized discharged with services Vital Signs: Date Time Temp Pulse Resp B/P (MAP) Pulse Ox O2 Delivery O2 Flow Rate FiO2 09/28/17 15:59 36.5 63 16 96 Room Air 09/28/17 08:45 96 Room Air 09/28/17 07:38 36.5 63 16 160/81 (107) 96 Room Air 09/28/17 00:00 Room Air 09/27/17 22:56 36.9 71 16 147/94 (111) 98 Room Air Lab Results: Results Past 24 Hours Test 09/28/17 06:52 Range/Units White Blood Count 6.31 4.8-10.8 K/uL Red Blood Count 4.07 4.7-6.1 M/uL Hemoglobin 13.2 14.0-18.0 g/dL Hematocrit 37.5 42-52 % Mean Corpuscular Volume 92.1 80-100 fL Mean Corpuscular Hemoglobin 32.4 25-34 pg Mean Corpuscular Hemoglobin Concent 35.2 32-36 g/dl Platelet Count 223 130-400 K/uL Mean Platelet Volume 9.0 7.4-10.4 fL Neutrophils (%) (Auto) 50.8 % Lymphocytes (%) (Auto) 23.8 % Monocytes (%) (Auto) 21.7 % Eosinophils (%) (Auto) 2.9 % Basophils (%) (Auto) 0.5 % Neutrophils # (Auto) 3.21 1.4-6.5 K/uL Lymphocytes # (Auto) 1.50 1.2-3.4 K/uL Monocytes # (Auto) 1.37 0.11-0.59 K/uL Eosinophils # (Auto) 0.18 0-0.5 K/uL Basophils # (Auto) 0.03 0-0.2 K/uL RDW Standard Deviation 50.3 36.4-46.3 fL RDW Coefficient of Variation 14.8 11.5-14.5 % Immature Granulocyte % (Auto) 0.3 % Immature Granulocyte # (Auto) 0.02 0.00-0.02 K/uL Sodium Level 127 136-145 mmol/L Potassium Level 4.0 3.5-5.1 mmol/L Chloride Level 95 98-107 mmol/L Carbon Dioxide Level 24 21-32 mmol/L Anion Gap 8.0 3-11 mmol/L Blood Urea Nitrogen 8 7-18 mg/dl Creatinine 0.51 0.60-1.40 mg/dl Est Creatinine Clear Calc Drug Dose 151.6 ml/min Estimated GFR () 142.2 Estimated GFR (Non- 122.7 BUN/Creatinine Ratio 15.7 10-20 Random Glucose 88 70-99 mg/dl Calcium Level 8.8 8.5-10.1 mg/dl Magnesium Level 2.0 1.8-2.4 mg/dl
--- NOTE | 2017-09-28 13:27 | Gastrointestinal Consultation ---
Gastrointestinal Consultation Date of Consultation: Sep 28, 2017 Attending Physician: Krystle Consulting Physician: Krish Reason for Consultation: dysphagia, hx stenosis History of Present Illness Patient is a 52 year old male admitted for ETOH withdrawal, seizure - GI asked to evaluate the pt for dysphagia. Pt was seen and evaluated, chart reviewed. Has hx of esophageal stricture & stenosis and has had EGD evaluation w/ dilation x 3 in the fall. Biopsies w/ reflux esophagitis, emilee esophagitis and lymphocytic esophagitis with appropriate treatment prescribed, but pt never took his medications. Notes his dysphagia is largely unchanged. He reports last night had meat, felt it stick. Did not feel it pass but was feeling ok. This AM had some eggs, felt sensation of food sticking that did not pass w/ liquids. At that instant, he was unable to tolerate secretions. This lasted for 30 minutes and the sensation resolved. Upon my arrival to the pts room, he was nearly 1/2 done with a lunch tray, tolerating the tray during conversation. He tells me now , he feels great. Wants to go home and wants to drink alcohol. Denies fever, chills, abd pain, nausea, vomiting, inability to tolerate secretions, dysphagia , CP, SOB. Past Medical/Surgical History Medical Problems: (1) Abnormal ECG Status: Acute (2) Alcohol dependence Status: Acute (3) Alcohol intoxication Status: Acute (4) Alcohol withdrawal Status: Acute (5) Alcohol withdrawal Status: Acute (6) Anemia Status: Acute (7) Ataxia Status: Acute (8) Ataxia Status: Acute (9) Closed left clavicular fracture Status: Acute (10) Elbow fracture, left Status: Acute (11) Fall as cause of accidental injury in residential institution as place of occurrence Status: Acute (12) Generalized weakness Status: Acute (13) Hip pain, right Status: Acute (14) Homeless Status: Acute (15) Hypokalemia Status: Acute (16) Hypophosphatemia Status: Acute (17) Hypotension Status: Acute (18) Intertrochanteric fracture of right hip Status: Acute (19) Lactic acidosis Status: Acute (20) Malnutrition Status: Acute (21) Pneumonia Status: Acute (22) Seizure Status: Acute Past Medical History: ETOH abuse, ETOH withdrawl, HTN, eso stenosis, anemia, tremor Past Surgical History: EGD Family History Hypertension Social History Smoking Status: Never Smoker Alcohol Use: heavy Drug Use: none Marital Status: single Housing Status: other Occupation Status: unemployed Allergies Coded Allergies: Penicillins (Verified Adverse Reaction, Mild, TIRED, 09/04/17) Current Medications Home Meds and Scripts Medications Dose Route/Sig Max Daily Dose Days Date Category Vitamin B-1 (Thiamine HCl) 50 Mg Tab 50 Mg PO DAILY 09/21/17 Reported Folic Acid 1 Mg Tab 1 Mg PO 09/21/17 Reported Tenormin (Atenolol) 25 Mg Tab 1 Tab PO DAILY 30 09/21/17 Reported Review of Systems Constitutional: No fever, No chills, No weakness, No fatigue Respiratory: No cough, No shortness of breath Cardiac: No chest pain, No edema Abdomen: No pain, No nausea, No vomiting, No diarrhea, No constipation, No GI bleeding Skin: No rash, No itch, No color change, No bleeding, No jaundice Physical Exam Date Time Temp Pulse Resp B/P (MAP) Pulse Ox O2 Delivery O2 Flow Rate FiO2 09/28/17 08:45 96 Room Air 09/28/17 07:38 36.5 63 16 160/81 (107) 96 Room Air 09/28/17 00:00 Room Air 09/27/17 22:56 36.9 71 16 147/94 (111) 98 Room Air 09/27/17 16:00 98 Room Air 09/27/17 15:55 36.4 64 18 122/82 (95) 98 Room Air General Appearance: no apparent distress (pt is upright in bed, eating lunch tray ) Eyes: PERRL ENT: hearing grossly normal Neck: supple, trachea midline Respiratory/Chest: lungs clear, normal breath sounds, no respiratory distress, no accessory muscle use Cardiovascular: regular rate, rhythm, no edema, no gallop, no JVD Abdomen: normal bowel sounds, non tender, soft, no organomegaly Neurologic/Psych: alert, normal mood/affect, oriented x 3 Skin: normal color, no jaundice, warm/dry, no rash Laboratory Results Last 24 Hours Test 09/28/17 06:52 White Blood Count 6.31 K/uL Red Blood Count 4.07 M/uL Hemoglobin 13.2 g/dL Hematocrit 37.5 % Mean Corpuscular Volume 92.1 fL Mean Corpuscular Hemoglobin 32.4 pg Mean Corpuscular Hemoglobin Concent 35.2 g/dl Platelet Count 223 K/uL Mean Platelet Volume 9.0 fL Neutrophils (%) (Auto) 50.8 % Lymphocytes (%) (Auto) 23.8 % Monocytes (%) (Auto) 21.7 % Eosinophils (%) (Auto) 2.9 % Basophils (%) (Auto) 0.5 % Neutrophils # (Auto) 3.21 K/uL Lymphocytes # (Auto) 1.50 K/uL Monocytes # (Auto) 1.37 K/uL Eosinophils # (Auto) 0.18 K/uL Basophils # (Auto) 0.03 K/uL RDW Standard Deviation 50.3 fL RDW Coefficient of Variation 14.8 % Immature Granulocyte % (Auto) 0.3 % Immature Granulocyte # (Auto) 0.02 K/uL Sodium Level 127 mmol/L Potassium Level 4.0 mmol/L Chloride Level 95 mmol/L Carbon Dioxide Level 24 mmol/L Anion Gap 8.0 mmol/L Blood Urea Nitrogen 8 mg/dl Creatinine 0.51 mg/dl Est Creatinine Clear Calc Drug Dose 151.6 ml/min Estimated GFR () 142.2 Estimated GFR (Non- 122.7 BUN/Creatinine Ratio 15.7 Random Glucose 88 mg/dl Calcium Level 8.8 mg/dl Magnesium Level 2.0 mg/dl Impression Patient is a 52 year old male w/ esophageal stricture, stenosis biopsies w/ emilee, reflux esophagitis, lymphocytic esophagitis prescribed appropraite therapy but never obtained. Notes he does not have money for prescriptions and transportation. I told him we could proceed with EGD for dilations, he does not want to currently arrange this as he does not have money for transportation. I discussed ETOH abuse in depth with the patient and asked him about his plans for discharge. It was noted in the chart that he was considering rehabilitation. When I asked him about this, he says he plans on going home today to drink alcohol. Plan - ETOH cessation - suggest ETOH rehabilitation - EGD as OP - Soft, slippery diet as tolerated - GI would recommend - yeast supervisor PPI prescription, take as directed - yeast supervisor Diflucan prescription, take as directed - yeast supervisor inhaled steroid prescription, take as directed - GI to sign off. Pt wants to leave today. He is currently tolerating diet. Soft slippery diet indefinitely. Educated on S/S food bolus, is to present to the ED for those symptoms. I saw and evaluated the patient. On my arrival it appears that he has being discharged. We are being consulted for evaluation of recurrent solid food dysphagia. The patient typically follows with my partner Dr. Guy who has performed several upper endoscopies in the recent past with esophageal dilation. It appears that the patient is due for repeat dilation in the near future and we will work to arrange follow-up procedure with him in the near future. If the patient continues to be in the hospital we are happy to perform the procedure as an inpatient. Examination No obvious distress No abdominal tenderness impression: Patient with recurrent solid food dysphagia likely from a peptic stricture. Patient is due for follow-up upper endoscopy which will be performed by his regular job provider in the near future. Call with any questions or concerns. Patient is to remain in the hospital we are certainly happy to perform this as an inpatient.
[2017-09-28] MEDS ORDERED: SDMC1 PO (14:48)
[2017-09-28] MEDS ORDERED: FLM4 PO (14:48)
--- NOTE | 2017-09-28 14:50 | Discharge Instructions ---
Discharge Instructions Date of Service Sep 28, 2017. Admission Reason for Admission: Alcohol Withdrawal Discharge Discharge Diagnosis / Problem: alcohol withdrawal, hyponatremia Discharge Goals Goal(s): Decrease discomfort, Improve function Activity Recommendations Activity Limitations: resume your previous activity . Instructions / Follow-Up Instructions / Follow-Up FOLLOWUP WITH FAMILY DOCTOR ON September AT 1:55PM. TO STREET SUPERINTENDENT PRESCRIPTIONS GIVEN BY GI. LAB: BMP WITH MG LEVELS IN ONE WEEK AND FOLLOW RESULTS WITH FAMILY DOCTOR. Current Hospital Diet Patient's current hospital diet: Regular Diet Discharge Diet Recommended Diet: Regular Diet Pending Studies Studies pending at discharge: no Medical Emergencies . Who to Call and When: Medical Emergencies: If at any time you feel your situation is an emergency, please call 911 immediately. . Non-Emergent Contact Non-Emergency issues call your: Primary Care Provider . . "Provider Documentation" section prepared by Marcus Dalton. .
[2017-09-28 15:59] VITALS: BP 160/81; PULSE 63; TEMP 36.5; O2SAT 96
--- NOTE | 2017-09-28 18:58 | Discharge Summary ---
Discharge Summary Date of Service Sep 28, 2017. Discharge Summary Admission Date: Sep 21, 2017 at 03:14 Discharge Date: Sep 28, 2017 Discharge Disposition: Home with services Principal Diagnosis: alcohol withdrawal hyponatremia dysphagia back pain Secondary Diagnoses/Problems: (1) Alcoholism Status: Chronic (2) Ambulatory dysfunction Status: Chronic (3) Ataxia Status: Chronic (4) Delirium tremens Status: Resolved (5) Dysphagia Permanent Comment: h/o esophageal stricture s/p dilation in past Status: Chronic (6) Fracture Calcaneus-Close Status: Resolved (7) Frequent falls Status: Chronic (8) Hip fracture Status: Resolved (9) Hypertension Status: Chronic (10) Hyponatremia Status: Resolved Procedures: ct head: No acute intracranial abnormality. Chronic changes as noted cxr: No significant change compared to the prior study. No acute process. lumbar spine ct: 1. There is a mild to moderate compression fracture of L1. This is age indeterminant, but likely acute to subacute and is new from the 07/18/2016 examination. 2. No additional bony abnormality is identified involving the lumbar spine. 3. Mild spondylotic change as above. Consultations: orthopedics gi Medication Reconciliation New Medications: Sodium Chloride (Sodium Chloride) 1 Gm Tab 1 GM PO BID, #60 TAB 1 Refill Tamsulosin HCl (Tamsulosin HCl) 0.4 Mg Cap 0.4 MG PO QAM, #30 CAP 2 Refills Continued Medications: Atenolol (Tenormin) 25 Mg Tab 1 TAB PO DAILY for 30 Days, #30 TAB 5 Refills Folic Acid (Folic Acid) 1 Mg Tab 1 MG PO, TAB Thiamine HCl (Vitamin B-1) 50 Mg Tab 50 MG PO DAILY, TAB Admission Information HPI (per Admitting provider): The patient is a 52-year-old alcoholic man who presents to the emergency room via EMS after complaints of leg pain prompting him to contact police. When they arrived, the patient was having a seizure. He was transferred via EMS. He was recently admitted to this hospital for alcohol withdrawal and hyponatremia. History is limited secondary to postictal state as well as Ativan administration effects. In the ER the patient is mildly tachycardic with a pulse of 97 blood pressure of 194/113 afebrile, and saturating 100% on room air physical exam was pertinent for confusion and postictal state. He was tremulous but attempted to answer questions. He is cachectic and malnourished. He had multiple abrasions along the buccal mucosa with no active bleeding. Neuro exam reveals all extremities moving to command with no acute motor or definite sensory deficits. Lab work reveals a sodium of 130, potassium of 3.3, a bicarb of 19, normal kidney function, H&H of 1336. A Nielsen catheter was placed with 1000 cc of residual urine. Troponin was checked and negative. Liver enzymes were within normal range. Alcohol level was negative. Initial lactic acid was 11. Physical Exam (per Admitting): General Appearance: + mild distress, + thin Head: normocephalic, atraumatic Eyes: normal inspection, PERRL, sclerae normal ENT: pharynx normal Neck: no JVD, trachea midline Respiratory/Chest: lungs clear, normal breath sounds, no respiratory distress, no accessory muscle use Cardiovascular: no edema, no gallop, no JVD, no murmur, normal peripheral pulses, + tachycardia Abdomen/GI: non tender, soft Extremities/Musculoskelatal: normal inspection, no pedal edema Hospital Course 52-year-old alcoholic male with recent hospital admission for alcohol withdrawal presents with delirium tremens with seizure.Multiple admissions for same problem. management following at home too. But patient is generally non compliant with instructions Electrolytes Abnormalities- Secondary to Alcohol use Will replace f/u labs . potassium and mg ok. Na 127 today Delirium tremens with seizure-likely related to alcohol withdrawal known history of heavy alcohol use and alcohol withdrawal in the last 2 weeks. No seizures since admission and given benzo. Seizure precautions. was on alcohol withdrawal protocol with gabapentin and Ativan seems stable currently and off of gabapentin. Heavy alcohol use Recurrent admissions with Alcohol related issues Very noncompliant Willing to go to Rehab director of social work for d/c planning-[facility] him back plan for home with services Severe back pain will f/u ct scan- L1 compression fx seen by ortho- no plan for brace as patient refusing and also ambulating fine Dysphagia hx of oesophageal stricture and was dilated thrice as per patient started last night consulted GI but resolved now and wants to go home Gi recommends to orange picker machine operator his prescriptions for ppi and Diflucan to f/u with his regular provider Ataxia with ambulatory dysfunction and multiple falls-PT/OT evaluation. Secondary to chronic use of Alcohol Hypertension- Continue atenolol.will monitor Acute urinary retention-Nielsen placement in ER with greater than 1000 cc return. Will monitor added Flomax . Hyponatremia-likely secondary to alcoholism and poor p.o. intake, increased from prior hospitalization. Sodium is 127 today 09/25/17 Continue Fluid restriction and sodium tabs f/u labs with pcp Elevated lactate-likely secondary to seizure activity, repeat after IV fluids. Normalized discharged with services Total time spent on discharge = 35minutes This includes examination of the patient, discharge planning, medication reconciliation, and communication with other providers. Discharge Instructions Discharge Instructions Date of Service Sep 28, 2017. Admission Reason for Admission: Alcohol Withdrawal Discharge Discharge Diagnosis / Problem: alcohol withdrawal, hyponatremia Discharge Goals Goal(s): Decrease discomfort, Improve function Activity Recommendations Activity Limitations: resume your previous activity . Instructions / Follow-Up Instructions / Follow-Up FOLLOWUP WITH FAMILY DOCTOR ON September AT 1:55PM. TO SILK SNAPPER PRESCRIPTIONS GIVEN BY GI. LAB: BMP WITH MG LEVELS IN ONE WEEK AND FOLLOW RESULTS WITH FAMILY DOCTOR. Current Hospital Diet Patient's current hospital diet: Regular Diet Discharge Diet Recommended Diet: Regular Diet Pending Studies Studies pending at discharge: no Medical Emergencies . Who to Call and When: Medical Emergencies: If at any time you feel your situation is an emergency, please call 911 immediately. . Non-Emergent Contact Non-Emergency issues call your: Primary Care Provider . .
--- NOTE | 2017-09-29 12:39 | EDITING REQUIRED CODING QUERY ---
BMI To promote full compliance with coding requirements relating to patient care, physician participation is requested in all cases of aerospace medicine physician uncertainty. Please assist us with the question(s) below: Please place an X within the parenthesis (x). If other, please document: BMI 19.7 was documented in this record for this patient. If the BMI is significant, please check the box that provides a more specific associated diagnosis: ( ) Overweight/Obese ( ) Obesity ( ) Morbid obesity ( ) Obesity Hypoventilation Syndrome (OHS) ( ) Heathy weight, not significant ( x ) Underweight/Thin ( ) Other, please specify Thank you Nasima Dunn
--- NOTE | 2017-09-29 12:40 | EDITING REQUIRED CODING QUERY ---
MALNUTRITION To promote full compliance with coding requirements relating to patient care, physician participation is requested in all cases of department head college or university uncertainty. Please assist us with the question(s) below: Please place an X within the parenthesis (x). If other, please document: "Malnutrition" is documented in this record. If possible, please check the box that provides a more specific diagnosis: ( x ) Mild malnutrition ( ) Moderate malnutrition ( ) Severe malnutrition ( ) Protein malnutrition (kwashiorkor) ( ) Severe protein calorie malnutrition ( ) Protein calorie malnutrition, unspecified ( ) Other (please specify): Was this diagnosis present on admission? Please place an X within the parenthesis (x). ( ) Present on admission ( ) Not present on admission ( ) Unable to be clinically determined Thank you Nasima Dunn
== END 2017-09-28 16:25 | disposition home health service (06) | DRG 897 ==
LOC: EDBD 23:55 → C.EDB 23:57 → C.2E 09-21 03:14 → ENRESERV 09-21 03:38 → C.MS4W 09-23 19:11
PROVIDERS: ADMIT Hospitalist; ATTEND Internal Medicine
DX: F10.231 Alcohol dependence with withdrawal delirium (principal); R64 Cachexia; E87.2 Acidosis; E87.1 Hypo-osmolality and hyponatremia; M48.56XA Collapsed vertebra, not elsewhere classified, lumbar region, initial encounter for fracture; E44.1 Mild protein-calorie malnutrition; R27.8 Other lack of coordination; E87.6 Hypokalemia; I10 Essential (primary) hypertension; R13.10 Dysphagia, unspecified; E83.42 Hypomagnesemia; K22.2 Esophageal obstruction; R74.0 Nonspecific elevation of levels of transaminase and lactic acid dehydrogenase [LDH]; R27.0 Ataxia, unspecified; R33.9 Retention of urine, unspecified; Z91.81 History of falling; Z88.0 Allergy status to penicillin; Z82.49 Family history of ischemic heart disease and other diseases of the circulatory system

== ENCOUNTER 2017-10-10 13:31 | Inpatient (IN) | payer OTHER ==
[~2017-10-10] VITALS: Ht 180.3 cm; Wt 59.1 kg
[~2017-10-10 13:31] MED LIST changes: +ATEN25TA PO; +FLM4 PO; -TNR25 PO
[2017-10-10] MEDS ORDERED: LORAZEPAM 2 MG/ML 1 ML VIAL IV STA ×2 (14:04→15:56)
[2017-10-10] MEDS ORDERED: ONDANSETRON INJ 2 MG/ML 2 ML VIAL IV STA (14:12)
[2017-10-10] MEDS ORDERED: SODIUM CHLORIDE 0.9% 500ML 500 ML IV STA (14:13)
[2017-10-10] MEDS ORDERED: MULTI-VITAMIN INFUSION INJ 10 ML, THIAMINE HCL INJ 100 MG, FoLIC ACID INJ 1 MG in SODIU... IV ONE (14:15)
--- NOTE | 2017-10-10 14:21 | EMERGENCY ROOM VISIT NOTE ---
History Report prepared by Renetta: Emil Daniel Under the Supervision of: Dr. Froy Reardon M.D. First contact with patient: 13:43 Chief Complaint: OTHER COMPLAINT Stated Complaint: WEAKNESS History of Present Illness The patient is a 52 year old male who presents to the Emergency Room with complaints of constant weakness that began this morning. Per the patient's report, the patient was admitted September 21 due to alcohol withdrawal. The patient was discharged the and felt fine until earlier today. The patient states that he has not had an alcoholic beverage since 1999 last night. He reports that this morning he woke up and had a couple episodes of emesis. He reports that after vomiting, he [place] to [place] grab [place] 12 pack. The patient states that during his walk, he began to feel weak. He reports that his weakness progressed to the point where he was having trouble getting up on the curb. The patient states that someone picked him up and drove him to get the beer. He states that when he got out of the car, he noticed he became weak again. The patient states that after purchasing his beer, he walked to [place] [employer] and his weakness persisted. The patient states at that time someone called the ambulance. He reports that he was only able to drink half of a beer today. The patient states that he believes he is going through alcohol withdrawal and reports his symptoms are similar to his last withdrawal. He denies chest pain and shortness of breath. Source of History: patient Onset: this morning Position: other (global) Quality: other (weakness) Timing: constant Associated Symptoms: + vomiting, No chest pain, No SOB Review of Systems See HPI for pertinent positives & negatives. A total of 10 systems reviewed and were otherwise negative. Past Medical & Surgical Medical Problems: (1) Alcoholism (2) Alcoholism /alcohol abuse (3) Ambulatory dysfunction (4) Ataxia (5) Bilateral leg weakness (6) Delirium tremens (7) Dysphagia (8) Fracture Calcaneus-Close (9) Frequent falls (10) Hip fracture (11) Hypertension (12) Hyponatremia (13) Weakness of both lower limbs Social History Problems: (1) Alcohol abuse Family History Hypertension Social History Smoking Status: Former Smoker Alcohol Use: heavy Drug Use: none Marital Status: single Housing Status: other Occupation Status: unemployed Current/Historical Medications Scheduled Atenolol (Tenormin), 1 TAB PO DAILY Sodium Chloride (Sodium Chloride), 1 GM PO BID Tamsulosin HCl (Tamsulosin HCl), 0.4 MG PO QAM Thiamine HCl (Vitamin B-1), 50 MG PO DAILY Miscellaneous Medications Folic Acid (Folic Acid), 1 MG PO Allergies Coded Allergies: Penicillins (Verified Adverse Reaction, Mild, TIRED, 10/10/17) Physical Exam Vital Signs Date Time Temp Pulse Resp B/P (MAP) Pulse Ox O2 Delivery O2 Flow Rate FiO2 10/10/17 18:31 91 24 169/101 94 10/10/17 18:26 93 17 94 10/10/17 18:21 91 17 94 10/10/17 18:16 94 17 95 10/10/17 18:11 99 15 95 10/10/17 18:06 97 23 95 10/10/17 18:01 98 18 174/103 95 10/10/17 17:56 104 17 95 10/10/17 17:51 101 13 95 10/10/17 17:47 115 10/10/17 17:46 108 15 96 10/10/17 17:41 120 18 10/10/17 17:26 108 19 10/10/17 17:21 96 22 10/10/17 17:16 99 47 10/10/17 17:11 99 20 10/10/17 17:06 96 23 10/10/17 17:01 95 30 10/10/17 16:56 99 27 10/10/17 16:51 98 31 10/10/17 16:46 98 20 10/10/17 16:36 106 21 10/10/17 16:31 116 16 10/10/17 16:26 99 13 10/10/17 16:21 101 18 10/10/17 16:16 101 24 10/10/17 16:11 106 26 10/10/17 16:06 101 30 10/10/17 16:01 110 20 10/10/17 15:56 131 27 10/10/17 15:51 112 14 10/10/17 15:46 104 18 10/10/17 15:41 103 15 10/10/17 15:36 101 17 10/10/17 15:31 100 14 10/10/17 15:26 99 15 10/10/17 15:21 100 17 10/10/17 15:16 107 15 10/10/17 15:11 105 15 10/10/17 15:06 108 20 10/10/17 15:01 108 24 10/10/17 14:56 108 25 10/10/17 14:51 103 24 10/10/17 14:46 110 18 10/10/17 14:41 102 21 10/10/17 14:36 106 18 10/10/17 14:31 108 19 10/10/17 14:26 106 22 10/10/17 14:21 112 21 10/10/17 14:16 103 14 97 10/10/17 14:11 103 26 95 10/10/17 14:06 101 17 97 10/10/17 14:02 172/106 10/10/17 14:01 108 19 88 10/10/17 13:56 107 19 97 10/10/17 13:51 110 27 97 10/10/17 13:46 36.4 104 13 173/112 96 Room Air 10/10/17 13:46 110 15 97 10/10/17 13:41 106 19 96 10/10/17 13:41 108 10/10/17 13:40 173/112 Physical Exam GENERAL: Patient is in mild distress, dry heaving HEENT: No acute trauma, normocephalic atraumatic, mucous membranes dry, no nasal congestion, no scleral icterus. NECK: No stridor, no adenopathy, no meningismus, trachea is midline. LUNGS: Decreased breath sounds, no wheezing or rhonchi, breath sounds equal. HEART: Mildly tachycardic with a regular rhythm. No murmurs. ABDOMEN: Soft, nontender, bowel sounds positive, no hernias, no peritonitis. EXTREMITIES: No cyanosis or edema, full range of motion of all the joints without pain or difficulty, no signs for acute trauma. NEUROLOGIC: Oriented x 3, no acute motor or sensory deficits, no focal weakness , extremity tremor noted. SKIN: No rash, no jaundice, no diaphoresis. Medical Decision & Procedures ER Provider Diagnostic Interpretation: X-ray results as stated below per interpretation by me and the radiologist: CHEST ONE VIEW PORTABLE CLINICAL HISTORY: weakness, cough COMPARISON STUDY: 09/21/2017 FINDINGS: The cardiac and mediastinal contours are normal. There is no evidence of focal pulmonary consolidation. There is no evidence of failure. No pleural effusions are visualized.[ There is mild chronic interstitial thickening at the lung bases. There are old left-sided rib deformities. IMPRESSION: No active disease in the chest. Electronically signed by: Alejandro Lucas M.D. 10/10/2017 3:16 PM Dictated Date/Time: 10/10/2017 3:16 PM Laboratory Results 10/10/17 15:03 Red Blood Count 4.55, Mean Corpuscular Volume 94.1, Mean Corpuscular Hemoglobin 32.1, Mean Corpuscular Hemoglobin Concent 34.1, Mean Platelet Volume 8.8, Neutrophils (%) (Auto) 94.6, Lymphocytes (%) (Auto) 2.9, Monocytes (%) (Auto) 2.0, Eosinophils (%) (Auto) 0.0, Basophils (%) (Auto) 0.1, Neutrophils # (Auto) 17.75, Lymphocytes # (Auto) 0.54, Monocytes # (Auto) 0.38, Eosinophils # (Auto) 0.00, Basophils # (Auto) 0.02 10/10/17 15:03 10/10/17 16:35 Test 10/10/17 15:03 10/10/17 16:35 10/10/17 18:45 White Blood Count 18.76 K/uL (4.8-10.8) Red Blood Count 4.55 M/uL (4.7-6.1) Hemoglobin 14.6 g/dL (14.0-18.0) Hematocrit 42.8 % (42-52) Mean Corpuscular Volume 94.1 fL (80-100) Mean Corpuscular Hemoglobin 32.1 pg (25-34) Mean Corpuscular Hemoglobin Concent 34.1 g/dl (32-36) Platelet Count 199 K/uL (130-400) Mean Platelet Volume 8.8 fL (7.4-10.4) Neutrophils (%) (Auto) 94.6 % Lymphocytes (%) (Auto) 2.9 % Monocytes (%) (Auto) 2.0 % Eosinophils (%) (Auto) 0.0 % Basophils (%) (Auto) 0.1 % Neutrophils # (Auto) 17.75 K/uL (1.4-6.5) Lymphocytes # (Auto) 0.54 K/uL (1.2-3.4) Monocytes # (Auto) 0.38 K/uL (0.11-0.59) Eosinophils # (Auto) 0.00 K/uL (0-0.5) Basophils # (Auto) 0.02 K/uL (0-0.2) RDW Standard Deviation 53.4 fL (36.4-46.3) RDW Coefficient of Variation 15.5 % (11.5-14.5) Immature Granulocyte % (Auto) 0.4 % Immature Granulocyte # (Auto) 0.07 K/uL (0.00-0.02) Echinocytes 1+ Anion Gap 25.0 mmol/L (3-11) Est Creatinine Clear Calc Drug Dose 79.4 ml/min Estimated GFR () 104.2 Estimated GFR (Non- 89.9 BUN/Creatinine Ratio 10.2 (10-20) Calcium Level 9.3 mg/dl (8.5-10.1) Total Bilirubin 0.6 mg/dl (0.2-1) Alanine Aminotransferase (ALT/SGPT) 42 U/L (12-78) Alkaline Phosphatase 245 U/L (45-117) Troponin I < 0.015 ng/ml (0-0.045) Total Protein 8.8 gm/dl (6.4-8.2) Albumin 4.0 gm/dl (3.4-5.0) Globulin 4.8 gm/dl (2.5-4.0) Albumin/Globulin Ratio 0.8 (0.9-2) Ethyl Alcohol mg/dL 101.0 mg/dl (0-3) Venous Blood pH 7.36 (7.36-7.41) Venous Blood Partial Pressure CO2 35 mmHg (38.0-50.0) Venous Blood Partial Pressure O2 37 mmHg Venous Blood HCO3 19 mmol/L Venous Blood Oxygen Saturation 67.1 % Venous Blood Base Excess -5.5 mEq/L Magnesium Level 1.6 mg/dl (1.8-2.4) Aspartate Amino Transf (AST/SGOT) 87 U/L (15-37) Laboratory results reviewed by me. Medications Administered Medications (Trade) Dose Ordered Sig/Jaylene Route Start Time Stop Time Status Last Admin Dose Admin Lorazepam (Ativan Inj) 1 mg NOW STAT IV 10/10/17 14:04 10/10/17 14:10 DC 10/10/17 14:53 1 MG Multivitamins 10 ml/Thiamine HCl 100 mg/Folic Acid 1 mg/Sodium Chloride 1,011.2 ml @ 500 mls/ hr Q2H2M ONCE IV 10/10/17 14:15 10/10/17 16:16 DC 10/10/17 15:27 500 MLS/HR Ondansetron HCl (Zofran Inj) 4 mg NOW STAT IV 10/10/17 14:12 10/10/17 14:13 DC 10/10/17 14:52 4 MG Sodium Chloride 500 ml @ 999 mls/hr Q31M STAT IV 10/10/17 14:13 10/10/17 14:43 DC 10/10/17 15:27 999 MLS/HR Lorazepam (Ativan Inj) 1 mg NOW STAT IV 10/10/17 15:56 10/10/17 15:57 DC 10/10/17 16:07 1 MG Magnesium Sulfate (Magnesium Sulfate) 1 gm NOW STAT IV 10/10/17 17:14 10/10/17 17:15 DC 10/10/17 18:18 1 GM Acetaminophen (Tylenol Tab) 650 mg NOW STAT PO 10/10/17 18:16 10/10/17 18:17 DC 10/10/17 18:34 650 MG ECG Per My Interpretation Indication: weakness Rate (beats per minute): 102 Rhythm: sinus tachycardia Findings: other (No PVCs, No ST elevations, baseline artifact) ED Course 1408: The patient was evaluated in room B09. A complete history and physical exam was performed. 1404: Ordered Ativan Injection 1 mg IV. 1412: Ordered Zofran Injection 4 mg IV. 1413: Ordered Sodium Chloride 500 ml @ 999 mls/hr IV. 1415: Ordered Multivitamins 10 ml/Thiamine HCl 100mg/Folic Acid 1 mg/ Sodium Chloride 1011.2 ml @ 500 mls/hr IV. 1556: Ordered Ativan Injection 1 mg IV. 1641: Reevaluated the patient and his symptoms are unchanged. Will order an ambulatory trial and UA. 1714: Ordered Magnesium Sulfate 1 gm IV. 1807: I discussed the patients case with Christine Ley PA-C Hospitalist. She understands the patients condition and agrees to accept the patient. The patient will be further evaluated. Medical Decision The patient is a 52 year old male who presents to the Emergency Room with complaints of constant weakness that began this morning. Differential diagnoses considered include alcohol withdrawal, dehydration, electrolyte imbalance, anemia, UTI, viral illness, KS, and dysrhythmia. The patient does have a leukocytosis at 18,000, this could be consistent with infection or just the stress of his current situation. No concerning anemia. Renal panel testing shows a low CO2 with an anion gap-these findings could be consistent with alcohol abuse. Patient does have some very subtle liver enzyme elevations, this could be consistent with his alcohol abuse. Magnesium was low at 1.6. EKG showed a sinus tachycardia, no acute ischemia. Cardiac enzyme testing 1 is not consistent with acute cardiac injury. Chest film does not show pneumonia, pneumothorax or mediastinal widening. Alcohol level was around 100, this is consistent with his alcohol use. VBG does not show acidosis. Urinalysis is pending. The patient presents with tremors, vomiting and weakness. He appeared to be suffering from alcohol withdrawal/dehydration. He received IV saline. He was given IV magnesium. He received IV Ativan, a second dose of IV Ativan. He was given IV Zofran. He received some oral Tylenol. He received saline with multivitamins, thiamine and folate. The patient was given an ambulation trial, he cannot really ambulate on his own. He had a difficult time even making it to the bathroom. He does live alone and has no social support. Given his findings, given his exam and history, I did think a hospital stay was warranted. Case management has been involved. The on-call hospitalist was consulted and we discussed the case. Medication Reconcilliation Current Medication List: was personally reviewed by me Blood Pressure Screening Patient's blood pressure: Elevated blood pressure Referred to Hospitalist. Consults Time Called: 1758 Consulting Physician: Christine Ley PA-C Hospitalist Returned Call: 1807 I discussed the patients case with Christine Ley PA-C Hospitalist. She understands the patients condition and agrees to accept the patient. The patient will be further evaluated. Impression Primary Impression: Alcohol withdrawal Additional Impressions: Weakness Dehydration Hypomagnesemia Scribe Attestation The scribe's documentation has been prepared under my direction and personally reviewed by me in its entirety. I confirm that the note above accurately reflects all work, treatment, procedures, and medical decision making performed by me. Departure Information Dispostion Being Evaluated By Hospitalist Referrals No Doctor, Assigned (PCP) Patient Instructions My [facility] Problem Qualifiers
--- NOTE | 2017-10-10 14:24 | EMERGENCY ROOM VISIT NOTE ---
History First contact with patient: 13:43 Chief Complaint: OTHER COMPLAINT Stated Complaint: WEAKNESS History of Present Illness The patient is a 52 year old male who presents to the Emergency Room with complaints of generalized weakness since today at noon. Pt states he was walking downtown in order to buy a 12 pack of beer and began to feel so weak that he could not stand on his own. He held on to a rail of some sort and denies ever hitting his head or losing consciousness completely. Someone passing by in their car stopped and assisted him to their car and drove him to [employer] and dropped him there. He says even trying to get up on the curb he felt weak, and needed assistance. He was able to drink half a beer on his walk back home but apparently a flight engineer helicopter made him pour the rest out. So he has only had half a beer today. Last drink prior was around 8 pm yesterday. As he was [place] [employer], someone called him a cab to get to the hospital. He brought his 12 pack of beer and is asking for it now. Also reports h/o non bloody emesis yesterday, and 2 bowel movements this morning, also non bloody. Denies urinary symptoms, cough, difficulty breathing, chest pain, abdominal pain , diarrhea or constipation. Review of Systems ROS See HPI for pertinent positives and negatives. Past Medical/Surgical History Medical Problems: (1) Alcoholism (2) Alcoholism /alcohol abuse (3) Ambulatory dysfunction (4) Ataxia (5) Bilateral leg weakness (6) Delirium tremens (7) Dysphagia (8) Fracture Calcaneus-Close (9) Frequent falls (10) Hip fracture (11) Hypertension (12) Hyponatremia (13) Weakness of both lower limbs Social History Problems: (1) Alcohol abuse Family History Hypertension Social History Smoking Status: Former Smoker Alcohol Use: heavy Drug Use: none Marital Status: single Housing Status: other Occupation Status: unemployed Current/Historical Medications Scheduled Atenolol (Tenormin), 1 TAB PO DAILY Sodium Chloride (Sodium Chloride), 1 GM PO BID Tamsulosin HCl (Tamsulosin HCl), 0.4 MG PO QAM Thiamine HCl (Vitamin B-1), 50 MG PO DAILY Miscellaneous Medications Folic Acid (Folic Acid), 1 MG PO Physical Exam Vital Signs Date Time Temp Pulse Resp B/P (MAP) Pulse Ox O2 Delivery O2 Flow Rate FiO2 3/27/18 17:51 101 13 95 10/10/17 17:47 115 10/10/17 17:46 108 15 96 10/10/17 17:41 120 18 10/10/17 17:26 108 19 10/10/17 17:21 96 22 10/10/17 17:16 99 47 10/10/17 17:11 99 20 10/10/17 17:06 96 23 10/10/17 17:01 95 30 10/10/17 16:56 99 27 10/10/17 16:51 98 31 10/10/17 16:46 98 20 10/10/17 16:36 106 21 10/10/17 16:31 116 16 10/10/17 16:26 99 13 10/10/17 16:21 101 18 10/10/17 16:16 101 24 10/10/17 16:11 106 26 10/10/17 16:06 101 30 10/10/17 16:01 110 20 10/10/17 15:56 131 27 10/10/17 15:51 112 14 10/10/17 15:46 104 18 10/10/17 15:41 103 15 10/10/17 15:36 101 17 10/10/17 15:31 100 14 10/10/17 15:26 99 15 10/10/17 15:21 100 17 10/10/17 15:16 107 15 10/10/17 15:11 105 15 10/10/17 15:06 108 20 10/10/17 15:01 108 24 10/10/17 14:56 108 25 10/10/17 14:51 103 24 10/10/17 14:46 110 18 10/10/17 14:41 102 21 10/10/17 14:36 106 18 10/10/17 14:31 108 19 10/10/17 14:26 106 22 10/10/17 14:21 112 21 10/10/17 14:16 103 14 97 10/10/17 14:11 103 26 95 10/10/17 14:06 101 17 97 10/10/17 14:02 172/106 10/10/17 14:01 108 19 88 10/10/17 13:56 107 19 97 10/10/17 13:51 110 27 97 10/10/17 13:46 36.4 104 13 173/112 96 Room Air 10/10/17 13:46 110 15 97 10/10/17 13:41 106 19 96 10/10/17 13:41 108 10/10/17 13:40 173/112 Physical Exam GENERAL: Awake, alert, tired appearing, in mild distress. Malnourished. HENT: Normocephalic, atraumatic. EYES: Normal conjunctiva. Sclera non-icteric. RESPIRATORY: Clear to auscultation. CARDIAC: Regular rate, normal rhythm. Extremities warm and well perfused. Pulses equal. ABDOMEN: Soft, non-distended. No tenderness to palpation. No rebound or guarding. No masses. LOWER EXTREMITIES: Calves are equal size bilaterally and non-tender. No edema. No discoloration. NEURO: No sensory or motor deficits noted. Strength is symmetric. CN II-XII in tact. Pt is tremulous. SKIN: No rash or jaundice noted. Medical Decision & Procedures Laboratory Results 10/10/17 15:03 Red Blood Count 4.55, Mean Corpuscular Volume 94.1, Mean Corpuscular Hemoglobin 32.1, Mean Corpuscular Hemoglobin Concent 34.1, Mean Platelet Volume 8.8, Neutrophils (%) (Auto) 94.6, Lymphocytes (%) (Auto) 2.9, Monocytes (%) (Auto) 2.0, Eosinophils (%) (Auto) 0.0, Basophils (%) (Auto) 0.1, Neutrophils # (Auto) 17.75, Lymphocytes # (Auto) 0.54, Monocytes # (Auto) 0.38, Eosinophils # (Auto) 0.00, Basophils # (Auto) 0.02 10/10/17 15:03 10/10/17 16:35 Test 10/10/17 15:03 10/10/17 16:35 White Blood Count 18.76 K/uL (4.8-10.8) Red Blood Count 4.55 M/uL (4.7-6.1) Hemoglobin 14.6 g/dL (14.0-18.0) Hematocrit 42.8 % (42-52) Mean Corpuscular Volume 94.1 fL (80-100) Mean Corpuscular Hemoglobin 32.1 pg (25-34) Mean Corpuscular Hemoglobin Concent 34.1 g/dl (32-36) Platelet Count 199 K/uL (130-400) Mean Platelet Volume 8.8 fL (7.4-10.4) Neutrophils (%) (Auto) 94.6 % Lymphocytes (%) (Auto) 2.9 % Monocytes (%) (Auto) 2.0 % Eosinophils (%) (Auto) 0.0 % Basophils (%) (Auto) 0.1 % Neutrophils # (Auto) 17.75 K/uL (1.4-6.5) Lymphocytes # (Auto) 0.54 K/uL (1.2-3.4) Monocytes # (Auto) 0.38 K/uL (0.11-0.59) Eosinophils # (Auto) 0.00 K/uL (0-0.5) Basophils # (Auto) 0.02 K/uL (0-0.2) RDW Standard Deviation 53.4 fL (36.4-46.3) RDW Coefficient of Variation 15.5 % (11.5-14.5) Immature Granulocyte % (Auto) 0.4 % Immature Granulocyte # (Auto) 0.07 K/uL (0.00-0.02) Echinocytes 1+ Anion Gap 25.0 mmol/L (3-11) Est Creatinine Clear Calc Drug Dose 79.4 ml/min Estimated GFR () 104.2 Estimated GFR (Non- 89.9 BUN/Creatinine Ratio 10.2 (10-20) Calcium Level 9.3 mg/dl (8.5-10.1) Total Bilirubin 0.6 mg/dl (0.2-1) Alanine Aminotransferase (ALT/SGPT) 42 U/L (12-78) Alkaline Phosphatase 245 U/L (45-117) Troponin I < 0.015 ng/ml (0-0.045) Total Protein 8.8 gm/dl (6.4-8.2) Albumin 4.0 gm/dl (3.4-5.0) Globulin 4.8 gm/dl (2.5-4.0) Albumin/Globulin Ratio 0.8 (0.9-2) Ethyl Alcohol mg/dL 101.0 mg/dl (0-3) Venous Blood pH 7.36 (7.36-7.41) Venous Blood Partial Pressure CO2 35 mmHg (38.0-50.0) Venous Blood Partial Pressure O2 37 mmHg Venous Blood HCO3 19 mmol/L Venous Blood Oxygen Saturation 67.1 % Venous Blood Base Excess -5.5 mEq/L Magnesium Level 1.6 mg/dl (1.8-2.4) Aspartate Amino Transf (AST/SGOT) 87 U/L (15-37) Medications Administered Medications (Trade) Dose Ordered Sig/Jaylene Route Start Time Stop Time Status Last Admin Dose Admin Lorazepam (Ativan Inj) 1 mg NOW STAT IV 10/10/17 14:04 10/10/17 14:10 DC 10/10/17 14:53 1 MG Multivitamins 10 ml/Thiamine HCl 100 mg/Folic Acid 1 mg/Sodium Chloride 1,011.2 ml @ 500 mls/ hr Q2H2M ONCE IV 10/10/17 14:15 10/10/17 16:16 DC 10/10/17 15:27 500 MLS/HR Ondansetron HCl (Zofran Inj) 4 mg NOW STAT IV 10/10/17 14:12 10/10/17 14:13 DC 10/10/17 14:52 4 MG Sodium Chloride 500 ml @ 999 mls/hr Q31M STAT IV 10/10/17 14:13 10/10/17 14:43 DC 10/10/17 15:27 999 MLS/HR Lorazepam (Ativan Inj) 1 mg NOW STAT IV 10/10/17 15:56 10/10/17 15:57 DC 10/10/17 16:07 1 MG Procedure CHEST ONE VIEW PORTABLE CLINICAL HISTORY: weakness, cough COMPARISON STUDY: 09/21/2017 FINDINGS: The cardiac and mediastinal contours are normal. There is no evidence of focal pulmonary consolidation. There is no evidence of failure. No pleural effusions are visualized. There is mild chronic interstitial thickening at the lung bases. There are old left-sided rib deformities. IMPRESSION: No active disease in the chest. Electronically signed by: Alejandro Lucas M.D. 10/10/2017 3:16 PM Dictated Date/Time: 10/10/2017 3:16 PM ED Course 1344 Reviewed records, seen and assessed patient 1403 Discussed with attending. 1409 Ordered CBC, CMP, Mg, UA, Urine tox, FELISHA, EKG, Trop, CXR. Also ordered 1mg Ativan IV, Banana bag @ 500 ml/hr. 1413 Attending orders 500cc bolus NSS and 4mg Zofran IV since pt was dry heaving during interview with attending. 1522 CXR shows no acute changes or signs of infection. 1602 ordered VBG due to bicarb 14 on CMP. 1644 Reassessed pt. Denies hallucinations. Is asking for beer. 1649 ambulatory trial ordered. Pt able to ambulate with walker however did so with assistance, not very secure on his feet. 1800: discussed with pt the option of going home or staying for observation. Pt verbalized he wants to stay because he feels unsteady. Attending will discuss with [facility]ist service. Medical Decision The patient is a 52 year old male who presents to the Emergency Room with complaints of generalized weakness since today at noon. Pt states he was walking downtown in order to buy a 12 pack of beer and began to feel so weak that he could not stand on his own. He held on to a rail of some sort and denies ever hitting his head or losing consciousness completely. Someone passing by in their car stopped and assisted him to their car and drove him to [employer] and dropped him there. He says even trying to get up on the curb he felt weak, and needed assistance. He was able to drink half a beer on his walk back home but apparently a flight engineer helicopter made him pour the rest out. So he has only had half a beer today. Last drink prior was around 8 pm yesterday. As he was walking [place] [employer], someone called him a cab to get to the hospital. He brought his 12 pack of beer and is asking for it now. Also reports h/o non bloody emesis yesterday, and 2 bowel movements this morning, also non bloody. Denies urinary symptoms, cough, difficulty breathing, chest pain, abdominal pain , diarrhea or constipation. Diff dx: Alcohol withdrawal, dehydration, aspiration pneumonia, UTI, community acquired pneumonia Mr. Chang is well known to the ED and has been admitted for similar reasons as before. Pt lives alone and likely requires a higher level of care. While here, work up shows no signs of acute pulmonary infection as CXR shows no acute changes. Blood work shows an elevated white count, hypomagnesemia, and low bicarb. VBG negative for acidosis. FELISHA is 101. Pt will be admitted for alcohol withdrawal monitoring and nutrition repletion by the [facility] hospitalist service as it is not safe for him to go home with this level of weakness. Medication Reconcilliation Current Medication List: was personally reviewed by me Blood Pressure Screening Patient's blood pressure: Elevated blood pressure Blood pressure disposition: Referred to PCP Impression Primary Impression: Hypomagnesemia Additional Impressions: Dehydration Alcohol withdrawal Weakness Departure Information Dispostion Being Evaluated By Hospitalist Condition POOR Referrals No Doctor, Assigned (PCP) Patient Instructions My [facility] [address] Resident Tracking Resident Involvement: Resident Care Provided Care Provided: Adult ED Problem Qualifiers
--- NOTE | 2017-10-10 15:18 | DIAGNOSTIC IMAGING REPORT ---
CHEST ONE VIEW PORTABLE CLINICAL HISTORY: weakness, cough COMPARISON STUDY: 09/21/2017 FINDINGS: The cardiac and mediastinal contours are normal. There is no evidence of focal pulmonary consolidation. There is no evidence of failure. No pleural effusions are visualized.[ There is mild chronic interstitial thickening at the lung bases. There are old left-sided rib deformities. IMPRESSION: No active disease in the chest. Electronically signed by: Alejandro Lucas M.D. 10/10/2017 3:16 PM Dictated Date/Time: 10/10/2017 3:16 PM
[2017-10-10 15:19] LABS: HEMATOCRIT 42.8 % (42-52); HEMOGLOBIN 14.6 g/dL (14.0-18.0); MEAN CELL VOLUME 94.1 fL (80-100); MEAN CORPUSCULAR HEMOGLOBIN 32.1 pg (25-34); MEAN CORPUSCULAR HGB CONC 34.1 g/dl (32-36); MEAN PLATELET VOLUME 8.8 fL (7.4-10.4); PLATELET COUNT 199 K/uL (130-400); RED CELL DISTRIBUTION WIDTH CV 15.5 % (11.5-14.5); RED CELL DISTRIBUTION WIDTH SD 53.4 fL (36.4-46.3); WHITE BLOOD COUNT 18.76 K/uL (4.8-10.8)
[2017-10-10 15:57] LABS: ALKALINE PHOSPHATASE 245 U/L (45-117); ALT/SGPT 42 U/L (12-78); BLOOD UREA NITROGEN 10 mg/dl (7-18); CALCIUM 9.3 mg/dl (8.5-10.1); CARBON DIOXIDE 14 mmol/L (21-32); CREATININE 0.96 mg/dl (0.60-1.40); GLUCOSE 98 mg/dl (70-99); SODIUM 136 mmol/L (136-145); TOTAL PROTEIN 8.8 gm/dl (6.4-8.2)
[2017-10-10 16:07] LABS: BASO % 0.1 %; BASO ABS # 0.02 K/uL (0-0.2); IG# 0.07 K/uL (0.00-0.02); LYMPH % 2.9 %; LYMPH ABS # 0.54 K/uL (1.2-3.4); MONO ABS # 0.38 K/uL (0.11-0.59); NEUT % 94.6 %; NEUT ABS # 17.75 K/uL (1.4-6.5)
[2017-10-10] MEDS ORDERED: MAGNESIUM SULFATE 1GM / D5W 1 GM BAG IV STA (17:14)
[2017-10-10] MEDS ORDERED: ACETAMINOPHEN 325 MG TAB PO STA (18:16)
[2017-10-10] MEDS ORDERED: LORAZEPAM 2 MG/ML 1 ML VIAL IV PRN (19:30)
[2017-10-10] MEDS ORDERED: LORAZEPAM 1 MG TAB PO PRN (19:30)
[2017-10-10] MEDS ORDERED: GABAPENTIN 600 MG TAB PO SCH (19:30)
[2017-10-10 20:00] VITALS: BP 150/75; PULSE 85; TEMP 36.8; O2SAT 95; O2SAT 96
[2017-10-10 21:29] VITALS: BP 150/75; PULSE 85; TEMP 36.8; Ht 180.3 cm; Wt 59.1 kg
[2017-10-10] MEDS ORDERED: SODIUM CHLORIDE 0.9% 1000ML 1,000 ML IV SCH (21:30)
--- NOTE | 2017-10-10 21:52 | History and Physical ---
History & Physical Date & Time of Service: Oct 10, 2017 at 21:41 Chief Complaint: Alcohol Withdrawal, Ambulatory Dysfunction Primary Care Physician: No Doctor, Assigned History of Present Illness Source: patient, clinic records, hospital records This is a 52-year-old man with past medical history of alcohol abuse who presents with complaints of generalized weakness beginning this morning. Patient has been admitted multiple times for alcohol withdrawal in the past, most recently from September 21-. Has interest in attending a rehab program but was not accepted to one by time of discharge during previous admission. Over the past few weeks, patient has been reportedly drinking 8-12 beers a day. Drank around 8 PM last evening and woke up this morning with generalized weakness and difficulty with ambulating. Required his a walker to get around his apartment. Began to feel shaky and nauseated, so walked to a beer distributor and drank 1/2 of a beer before EMS was called due to patient's inability to stand up on his own. Patient is a poor historian, so ROS is limited. Endorses feeling nauseous and weak but denies any confusion, seizures , falls or focal neurological deficits. Endorses dry cough. Denies fever, chills , lightheadedness, visual changes pain, shortness of breath, abdominal pain, bowel or bladder changes or LE swelling. Past Medical/Surgical History Medical Problems: (1) Abnormal ECG (2) Alcohol dependence Medical Problems: (1) Alcoholism Status: Chronic (2) Ambulatory dysfunction Status: Chronic (3) Ataxia Status: Chronic (4) Delirium tremens Status: Resolved (5) Dysphagia Permanent Comment: h/o esophageal stricture s/p dilation in past Status: Chronic (6) Fracture Calcaneus-Close Status: Resolved (7) Frequent falls Status: Chronic (8) Hip fracture Status: Resolved (9) Hypertension Status: Chronic (10) Hyponatremia Status: Resolved Family History Hypertension Social History Smoking Status: Former Smoker Alcohol Use: heavy Drug Use: none Marital Status: single Housing status: lives alone, other Occupational Status: unemployed Immunizations History of Influenza Vaccine: Unknown History of Tetanus Vaccine?: Unknown History of Pneumococcal: Unknown History of Hepatitis B Vaccine: Unknown Allergies Coded Allergies: Penicillins (Verified Adverse Reaction, Mild, TIRED, 10/10/17) Home Medications Scheduled Atenolol (Tenormin), 1 TAB PO DAILY Sodium Chloride (Sodium Chloride), 1 GM PO BID Tamsulosin HCl (Tamsulosin HCl), 0.4 MG PO QAM Thiamine HCl (Vitamin B-1), 50 MG PO DAILY Miscellaneous Medications Folic Acid (Folic Acid), 1 MG PO Review of Systems Ten systems reviewed and negative except as noted in the HPI. Physical Exam Vital Signs Date Time Temp Pulse Resp B/P (MAP) Pulse Ox O2 Delivery O2 Flow Rate FiO2 10/10/17 21:29 36.8 85 16 150/75 10/10/17 20:00 96 Room Air 10/10/17 20:00 36.8 85 16 150/75 (100) 95 Room Air 10/10/17 19:57 36.4 89 14 184/108 96 10/10/17 19:21 89 14 96 10/10/17 19:16 91 19 95 10/10/17 19:11 90 14 94 10/10/17 19:06 90 14 95 10/10/17 19:01 91 16 184/108 95 10/10/17 18:56 103 18 96 10/10/17 18:51 101 24 97 10/10/17 18:46 94 22 97 10/10/17 18:41 127 20 10/10/17 18:36 93 16 94 10/10/17 18:31 91 24 169/101 94 10/10/17 18:26 93 17 94 10/10/17 18:21 91 17 94 10/10/17 18:16 94 17 95 10/10/17 18:11 99 15 95 10/10/17 18:06 97 23 95 10/10/17 18:01 98 18 174/103 95 10/10/17 17:56 104 17 95 10/10/17 17:51 101 13 95 10/10/17 17:47 115 10/10/17 17:46 108 15 96 10/10/17 17:41 120 18 10/10/17 17:26 108 19 10/10/17 17:21 96 22 10/10/17 17:16 99 47 10/10/17 17:11 99 20 10/10/17 17:06 96 23 10/10/17 17:01 95 30 10/10/17 16:56 99 27 10/10/17 16:51 98 31 10/10/17 16:46 98 20 10/10/17 16:36 106 21 10/10/17 16:31 116 16 10/10/17 16:26 99 13 10/10/17 16:21 101 18 10/10/17 16:16 101 24 10/10/17 16:11 106 26 10/10/17 16:06 101 30 10/10/17 16:01 110 20 10/10/17 15:56 131 27 10/10/17 15:51 112 14 10/10/17 15:46 104 18 10/10/17 15:41 103 15 10/10/17 15:36 101 17 10/10/17 15:31 100 14 10/10/17 15:26 99 15 10/10/17 15:21 100 17 10/10/17 15:16 107 15 10/10/17 15:11 105 15 10/10/17 15:06 108 20 10/10/17 15:01 108 24 10/10/17 14:56 108 25 10/10/17 14:51 103 24 10/10/17 14:46 110 18 10/10/17 14:41 102 21 10/10/17 14:36 106 18 10/10/17 14:31 108 19 10/10/17 14:26 106 22 10/10/17 14:21 112 21 10/10/17 14:16 103 14 97 10/10/17 14:11 103 26 95 10/10/17 14:06 101 17 97 10/10/17 14:02 172/106 10/10/17 14:01 108 19 88 10/10/17 13:56 107 19 97 10/10/17 13:51 110 27 97 10/10/17 13:46 36.4 104 13 173/112 96 Room Air 10/10/17 13:46 110 15 97 10/10/17 13:41 106 19 96 10/10/17 13:41 108 10/10/17 13:40 173/112 General Appearance: no apparent distress, + cachetic Head: normocephalic, atraumatic Eyes: normal inspection, PERRL, sclerae normal ENT: normal ENT inspection, hearing grossly normal, pharynx normal (Dry mucous membranes) Neck: supple, thyroid normal, trachea midline Respiratory/Chest: chest non-tender, lungs clear, normal breath sounds, no respiratory distress, no accessory muscle use Cardiovascular: regular rate, rhythm, no murmur, normal peripheral pulses Abdomen/GI: non tender, soft, no organomegaly Back: normal inspection Extremities/Musculoskelatal: normal inspection, no calf tenderness, no pedal edema Neurologic/Psych: no motor/sensory deficits, alert, normal mood/affect, oriented x 3, + abnormal gait (ataxic (chronic) ), + pertinent finding ( Tremulous ) Skin: normal color, warm/dry Diagnostics Laboratory Results Results Past 24 Hours Test 10/10/17 15:03 10/10/17 16:35 10/10/17 18:45 10/10/17 20:09 Range/Units White Blood Count 18.76 4.8-10.8 K/uL Red Blood Count 4.55 4.7-6.1 M/uL Hemoglobin 14.6 14.0-18.0 g/dL Hematocrit 42.8 42-52 % Mean Corpuscular Volume 94.1 80-100 fL Mean Corpuscular Hemoglobin 32.1 25-34 pg Mean Corpuscular Hemoglobin Concent 34.1 32-36 g/dl Platelet Count 199 130-400 K/uL Mean Platelet Volume 8.8 7.4-10.4 fL Neutrophils (%) (Auto) 94.6 % Lymphocytes (%) (Auto) 2.9 % Monocytes (%) (Auto) 2.0 % Eosinophils (%) (Auto) 0.0 % Basophils (%) (Auto) 0.1 % Neutrophils # (Auto) 17.75 1.4-6.5 K/uL Lymphocytes # (Auto) 0.54 1.2-3.4 K/uL Monocytes # (Auto) 0.38 0.11-0.59 K/uL Eosinophils # (Auto) 0.00 0-0.5 K/uL Basophils # (Auto) 0.02 0-0.2 K/uL RDW Standard Deviation 53.4 36.4-46.3 fL RDW Coefficient of Variation 15.5 11.5-14.5 % Immature Granulocyte % (Auto) 0.4 % Immature Granulocyte # (Auto) 0.07 0.00-0.02 K/uL Echinocytes 1+ Sodium Level 136 136-145 mmol/L Potassium Level 4.0 3.5-5.1 mmol/L Chloride Level 97 98-107 mmol/L Carbon Dioxide Level 14 21-32 mmol/L Anion Gap 25.0 3-11 mmol/L Blood Urea Nitrogen 10 7-18 mg/dl Creatinine 0.96 0.60-1.40 mg/dl Est Creatinine Clear Calc Drug Dose 79.4 ml/min Estimated GFR () 104.2 Estimated GFR (Non- 89.9 BUN/Creatinine Ratio 10.2 10-20 Random Glucose 98 70-99 mg/dl Calcium Level 9.3 8.5-10.1 mg/dl Magnesium Level 1.6 1.8-2.4 mg/dl Total Bilirubin 0.6 0.2-1 mg/dl Aspartate Amino Transf (AST/SGOT) 87 15-37 U/L Alanine Aminotransferase (ALT/SGPT) 42 12-78 U/L Alkaline Phosphatase 245 45-117 U/L Troponin I < 0.015 0-0.045 ng/ml Total Protein 8.8 6.4-8.2 gm/dl Albumin 4.0 3.4-5.0 gm/dl Globulin 4.8 2.5-4.0 gm/dl Albumin/Globulin Ratio 0.8 0.9-2 Ethyl Alcohol mg/dL 101.0 0-3 mg/dl Venous Blood pH 7.36 7.36-7.41 Venous Blood Partial Pressure CO2 35 38.0-50.0 mmHg Venous Blood Partial Pressure O2 37 mmHg Venous Blood HCO3 19 mmol/L Venous Blood Oxygen Saturation 67.1 % Venous Blood Base Excess -5.5 mEq/L Urine Color YELLOW Urine Appearance CLEAR CLEAR Urine pH 5.0 4.5-7.5 Urine Specific [place] 1.018 1.000-1.030 Urine Protein TRACE NEG Urine Glucose (UA) NEG NEG Urine Ketones 2+ NEG Urine Occult Blood NEG NEG Urine Nitrite NEG NEG Urine Bilirubin NEG NEG Urine Urobilinogen NEG NEG Urine Leukocyte Esterase NEG NEG Urine WBC (Auto) 1-5 0-5 /hpf Urine RBC (Auto) 0-4 0-4 /hpf Urine Hyaline Casts (Auto) 1-5 0-5 /lpf Urine Epithelial Cells (Auto) 10-20 0-5 /lpf Urine Bacteria (Auto) NEG NEG Urine Opiates Screen NEG NEG Urine Methadone, Qualitative NEG NEG Urine Barbiturates NEG NEG Urine Phencyclidine (PCP) Level NEG NEG Ur Amphetamine/Methamphetamine NEG NEG MDMA (Ecstasy) Screen NEG NEG Urine Benzodiazepines Screen NEG NEG Urine Cocaine Metabolite NEG NEG Urine Marijuana (THC) NEG NEG Lactic Acid Level 1.5 0.4-2.0 mmol/L Diagnostic Radiology CXR: IMPRESSION: No active disease in the chest. CXR normal EKG Sinus tachycardia Possible Left atrial enlargement Septal infarct (cited on or before 04-SEP-2017) Abnormal ECG When compared with ECG of 21-SEP-2017 01:05, No significant change was found Impression Assessment and Plan This is a 52-year-old man with past medical history of alcohol abuse who presents with complaints of generalized weakness beginning this morning. Alcohol withdrawal: -Withdrawal protocol ordered -H/o delirium tremens -Seizure & fall precautions -Banana bag -Magnesium replaced -Discharge planning ordered for placement Metabolic acidosis: -In setting of heavy alcohol use -Anion gap of 25 on admission -IVF resuscitation -Monitor Ataxia, generalized weakness 2/2 alcohol abuse: -History of multiple falls, ambulatory dysfunction -Has a walker at home, uses sometimes -PT/OT evals, conditioning -Check B12 level Leukocytosis: -Wbc count of 18.76 -Likely 2/2 withdrawal -No sign of infection on CXR, UA -Lactate wnl -Recheck CBC in AM Dysphagia: -H/o esophageal stricture, per chart review -Aspiration precautions -Mechanical ground diet HTN: -H/o atenolol use -Denies taking currently -Continue home dose -Monitor H/o urinary retention: -Cont tamsulosin DVT Ppx: SCDs Code status: FULL PCP: unassigned Dispo: Case mgmt consulted to help with discharge placement. Patient seen in collaboration with Dr. Santiago. Please see addendum. Attending Note: Patient is a 52 yr male with PMH of chronic alcohol abuse and other problems presents with history of generalized weakness and has been having ambulatory dysfunction secondary to balance issues since this morning. Patient admits to drinking alcohol this morning as well. Also reports intermittent dry cough. Patient is a very poor historian. Denies any H/O head trauma, LOC, fever, chills , abd pain, diarrhea, chest pain, SOB but reports intermittent dizziness. His alcohol levels were 101. Tox screen was negative Physical Exam: Vitals signs as noted above General Appearance:Moderately built and nourished, no apparent distress Head: normocephalic, Atraumatic Eyes: normal inspection, EOMI, PERRLA Neck: supple, Trachea midline Respiratory/Chest: Normal breath sounds, CTA Cardiovascular: S1, S2, No murmur Abdomen/GI:Soft, Non tender, Bowel sounds present Extremities/Musculoskelatal:normal inspection, no edema Neurologic/Psych:AAOX3, grossly no focal neurological deficits Skin:normal color,warm Assessment and Plan: Alcohol Intoxication: Chronic alcohol abuse Alcohol levels:101 Tox screen negative Alcohol withdrawal protocol: Gabapentin, Ativan PRN Continue thiamine, folic acid Metabolic Acidosis: Likely secondary to above Leukocytosis: No obvious source of infection Normal lactate levels Generalized weakness Ambulatory dysfunction Check TSH, B 12 levels PT/OT Grossly no focal deficits Hypomagnesemia: replace and monitor I personally reviewed the record. Patient is interviewed and examined at bedside. Patient's care is coordinated with Hortencia Gonzalez PA-C. Please refer to the documentation above for details of patient's presentation and for discussion of other issues. Advanced Directives Existing Living Will: No Existing Power of Mobile Service Rv Technician: No Resuscitation Status VTE Prophylaxis Will order VTE Prophylaxis: Yes
[2017-10-10] MEDS ORDERED: GABAPENTIN 1200MG LOADING DOSE PO ONE (22:00)
[2017-10-10 23:36] VITALS: BP 172/92; PULSE 82; TEMP 37.2; O2SAT 96
[2017-10-11] VITALS (10 sets, daily range): BP systolic 136–197; BP diastolic 86–105; PULSE 63–86; TEMP 36.5–37.2; O2SAT 95–100
[2017-10-11] MEDS: ACETAMINOPHEN 325 MG TAB PO PRN ×2 (01:55→13:17)
[2017-10-11] MEDS: GABAPENTIN 600MG Q6H DOSE PO SCH ×2 (05:40→13:16)
[2017-10-11 07:20] LABS: ALBUMIN 3.2 gm/dl (3.4-5.0); CALCIUM 8.6 mg/dl (8.5-10.1); CREATININE 0.63 mg/dl (0.60-1.40); POTASSIUM 3.8 mmol/L (3.5-5.1)
[2017-10-11 07:24] LABS: HEMATOCRIT 38.7 % (42-52); HEMOGLOBIN 13.4 g/dL (14.0-18.0); MEAN CELL VOLUME 91.7 fL (80-100); MEAN CORPUSCULAR HEMOGLOBIN 31.8 pg (25-34); MEAN CORPUSCULAR HGB CONC 34.6 g/dl (32-36); PLATELET COUNT 148 K/uL (130-400); RED CELL DISTRIBUTION WIDTH CV 15.1 % (11.5-14.5); RED CELL DISTRIBUTION WIDTH SD 51.4 fL (36.4-46.3); WHITE BLOOD COUNT 7.71 K/uL (4.8-10.8)
[2017-10-11] MEDS: THIAMINE HCL 50 MG TAB PO SCH (07:45)
[2017-10-11] MEDS: TAMSULOSIN HCL 0.4 MG CAP PO SCH (07:46)
[2017-10-11] MEDS: SODIUM CHLORIDE 1 GM TAB PO SCH ×2 (07:46→21:00)
[2017-10-11] MEDS ORDERED: MULTI-VITAMIN INFUSION INJ 10 ML, THIAMINE HCL INJ 100 MG, FoLIC ACID INJ 1 MG in SODIU... IV SCH (08:00)
[2017-10-11] MEDS: METOPROLOL TARTRATE 1 MG/ML VIAL IV PRN (09:04)
--- NOTE | 2017-10-11 12:22 | Progress Note ---
Medicine Progress Note Date & Time of Visit: Oct 11, 2017 at 12:01. Subjective Pt was seen and examined Lying in bed with no distress Pt said that he feels weak He said that is interested to go for inpatient alcohol rehab Pt said that his tremor seems to improve now Denies any chest pain, palpitation, dizziness and SOB Objective Last 8 Hrs Date Time Temp Pulse Resp B/P (MAP) Pulse Ox O2 Delivery O2 Flow Rate FiO2 10/11/17 09:30 76 20 168/97 (120) 97 Room Air 10/11/17 09:04 83 192/105 10/11/17 08:14 36.5 83 20 183/104 (130) 96 Nasal Cannula 192/105 (134) 10/11/17 08:00 Room Air 10/11/17 06:50 175/100 (125) 10/11/17 06:25 184/98 (126) 10/11/17 05:39 75 197/104 (135) 100 Room Air 10/11/17 04:05 37.2 78 16 177/93 (121) 98 Room Air Physical Exam: General- no acute distress Head- atraumatic Eyes- PERRL, EOMI, No nystagmus ENT- Decrease hearing function Neck- supple, no JVD Lungs- clear to auscultation Heart- regular rhythm; no murmur Abdomen- normal bowel sounds, soft Extremities- no calf tenderness Neuro- alert, oriented x 3; PERRL, EOMI Skin- warm & dry Laboratory Results: Last 24 Hours Test 10/10/17 15:03 10/10/17 16:35 10/10/17 18:45 10/10/17 20:09 White Blood Count 18.76 K/uL Red Blood Count 4.55 M/uL Hemoglobin 14.6 g/dL Hematocrit 42.8 % Mean Corpuscular Volume 94.1 fL Mean Corpuscular Hemoglobin 32.1 pg Mean Corpuscular Hemoglobin Concent 34.1 g/dl Platelet Count 199 K/uL Mean Platelet Volume 8.8 fL Neutrophils (%) (Auto) 94.6 % Lymphocytes (%) (Auto) 2.9 % Monocytes (%) (Auto) 2.0 % Eosinophils (%) (Auto) 0.0 % Basophils (%) (Auto) 0.1 % Neutrophils # (Auto) 17.75 K/uL Lymphocytes # (Auto) 0.54 K/uL Monocytes # (Auto) 0.38 K/uL Eosinophils # (Auto) 0.00 K/uL Basophils # (Auto) 0.02 K/uL RDW Standard Deviation 53.4 fL RDW Coefficient of Variation 15.5 % Immature Granulocyte % (Auto) 0.4 % Immature Granulocyte # (Auto) 0.07 K/uL Echinocytes 1+ Sodium Level 136 mmol/L Potassium Level mmol/L 4.0 mmol/L Chloride Level 97 mmol/L Carbon Dioxide Level 14 mmol/L Anion Gap 25.0 mmol/L Blood Urea Nitrogen 10 mg/dl Creatinine 0.96 mg/dl Est Creatinine Clear Calc Drug Dose 79.4 ml/min Estimated GFR () 104.2 Estimated GFR (Non- 89.9 BUN/Creatinine Ratio 10.2 Random Glucose 98 mg/dl Calcium Level 9.3 mg/dl Magnesium Level mg/dl 1.6 mg/dl Total Bilirubin 0.6 mg/dl Aspartate Amino Transf (AST/SGOT) U/L 87 U/L Alanine Aminotransferase (ALT/SGPT) 42 U/L Alkaline Phosphatase 245 U/L Troponin I < 0.015 ng/ml Total Protein 8.8 gm/dl Albumin 4.0 gm/dl Globulin 4.8 gm/dl Albumin/Globulin Ratio 0.8 Ethyl Alcohol mg/dL 101.0 mg/dl Venous Blood pH 7.36 Venous Blood Partial Pressure CO2 35 mmHg Venous Blood Partial Pressure O2 37 mmHg Venous Blood HCO3 19 mmol/L Venous Blood Oxygen Saturation 67.1 % Venous Blood Base Excess -5.5 mEq/L Urine Color YELLOW Urine Appearance CLEAR Urine pH 5.0 Urine Specific [place] 1.018 Urine Protein TRACE Urine Glucose (UA) NEG Urine Ketones 2+ Urine Occult Blood NEG Urine Nitrite NEG Urine Bilirubin NEG Urine Urobilinogen NEG Urine Leukocyte Esterase NEG Urine WBC (Auto) 1-5 /hpf Urine RBC (Auto) 0-4 /hpf Urine Hyaline Casts (Auto) 1-5 /lpf Urine Epithelial Cells (Auto) 10-20 /lpf Urine Bacteria (Auto) NEG Urine Opiates Screen NEG Urine Methadone, Qualitative NEG Urine Barbiturates NEG Urine Phencyclidine (PCP) Level NEG Ur Amphetamine/Methamphetamine NEG MDMA (Ecstasy) Screen NEG Urine Benzodiazepines Screen NEG Urine Cocaine Metabolite NEG Urine Marijuana (THC) NEG Lactic Acid Level 1.5 mmol/L Test 10/11/17 06:04 White Blood Count 7.71 K/uL Red Blood Count 4.22 M/uL Hemoglobin 13.4 g/dL Hematocrit 38.7 % Mean Corpuscular Volume 91.7 fL Mean Corpuscular Hemoglobin 31.8 pg Mean Corpuscular Hemoglobin Concent 34.6 g/dl RDW Standard Deviation 51.4 fL RDW Coefficient of Variation 15.1 % Platelet Count 148 K/uL Mean Platelet Volume 9.0 fL Sodium Level 136 mmol/L Potassium Level 3.8 mmol/L Chloride Level 99 mmol/L Carbon Dioxide Level 27 mmol/L Anion Gap 10.0 mmol/L Blood Urea Nitrogen 6 mg/dl Creatinine 0.63 mg/dl Est Creatinine Clear Calc Drug Dose 120.8 ml/min Estimated GFR () 130.4 Estimated GFR (Non- 112.5 BUN/Creatinine Ratio 10.3 Random Glucose 69 mg/dl Calcium Level 8.6 mg/dl Total Bilirubin 1.0 mg/dl Aspartate Amino Transf (AST/SGOT) 65 U/L Alanine Aminotransferase (ALT/SGPT) 30 U/L Alkaline Phosphatase 188 U/L Total Protein 7.0 gm/dl Albumin 3.2 gm/dl Globulin 3.8 gm/dl Albumin/Globulin Ratio 0.8 Vitamin B12 Level 753 pg/mL Thyroid Stimulating Hormone (TSH) 1.150 uIu/ml Assessment & Plan This is a 52-year-old man with past medical history of alcohol abuse who presents with complaints of generalized weakness beginning this morning. Alcohol withdrawal Ethanol level 101 on admission Continue Gabapentin withdrawal protocol Continue Banana bag Continue thiamine and folic acid Continue Ativan prn Agree to go for inpatient rehab Monitor for DT Metabolic acidosis Due to alcohol Anion gap of 25 on admission, now close after IVF Continue monitor Ambulatory dysfunction Generalized weakness Due to alcohol Continue PT/OT Fall precaution Leukocytosis: Mostly due to reactive Wbc count of 18.76 on admission No signs of infection WBC normal today Dysphagia H/o esophageal stricture Aspiration precautions Mechanical ground diet HTN: BP elevated due to alcohol withdrawn H/o atenolol use Non compliant Continue monitor BP H/o urinary retention: Cont tamsulosin DVT Ppx: SCDs Code status: FULL Dispo: Interested to go to inpatient rehab/alcohol rehab Current Inpatient Medications: Current Inpatient Medications Medications (Trade) Dose Ordered Sig/Jaylene Route Start Time Stop Time Status Last Admin Dose Admin Lorazepam (Ativan Tab) 1 mg ONE PRN PO 10/10/17 19:30 11/09/17 19:29 Lorazepam (Ativan Inj) 1 mg ONE PRN IV 10/10/17 19:30 11/09/17 19:29 Gabapentin (Neurontin Tab) 600 mg Q6H PO 10/11/17 06:00 10/11/17 12:01 10/11/17 05:40 600 MG Gabapentin (Neurontin Tab) 600 mg Q8H PO 10/11/17 22:00 10/12/17 14:01 Gabapentin (Neurontin Tab) 600 mg Q12H PO 10/13/17 00:00 10/13/17 12:01 Gabapentin (Neurontin Tab) 600 mg Q24H PO 10/14/17 12:00 10/14/17 12:01 Folic Acid (Folvite Tab) 1 mg DAILY PO 10/11/17 09:00 11/10/17 08:59 10/11/17 07:46 1 MG Sodium Chloride (Sodium Chloride Tab) 1 gm BID PO 10/11/17 09:00 11/10/17 08:59 10/11/17 07:46 1 GM Tamsulosin HCl (Flomax Cap) 0.4 mg QAM PO 10/11/17 09:00 11/10/17 08:59 10/11/17 07:46 0.4 MG Thiamine HCl (Vitamin B-1 Tab) 50 mg DAILY PO 10/11/17 09:00 11/10/17 08:59 10/11/17 07:45 50 MG Acetaminophen (Tylenol Tab) 650 mg Q6H PRN PO 10/11/17 00:15 11/10/17 00:14 10/11/17 01:55 650 MG Atenolol (Tenormin Tab) 25 mg DAILY PO 10/12/17 09:00 11/10/17 08:59 Metoprolol Tartrate (Lopressor Iv) 2.5 mg Q6 PRN IV 10/11/17 09:00 11/10/17 08:59 10/11/17 09:04 2.5 MG
[2017-10-11] MEDS ORDERED: LORAZEPAM 1 MG TAB PO PRN (15:45)
[2017-10-11] MEDS: GABAPENTIN 600MG Q8H DOSE PO SCH (22:00)
[2017-10-12] VITALS (10 sets, daily range): BP systolic 139–160; BP diastolic 88–98; PULSE 64–84; TEMP 36.5–37.1; O2SAT 94–98
[2017-10-12] MEDS: GABAPENTIN 600MG Q8H DOSE PO SCH ×2 (05:51→13:19)
[2017-10-12] MEDS: TAMSULOSIN HCL 0.4 MG CAP PO SCH (08:18)
[2017-10-12] MEDS: THIAMINE HCL 50 MG TAB PO SCH (08:18)
[2017-10-12] MEDS: SODIUM CHLORIDE 1 GM TAB PO SCH ×2 (08:18→19:28)
[2017-10-12] MEDS ORDERED: MULTI-VITAMIN INFUSION INJ 10 ML, THIAMINE HCL INJ 100 MG, FoLIC ACID INJ 1 MG in SODIU... IV SCH (09:00)
[2017-10-12] MEDS: ACETAMINOPHEN 325 MG TAB PO PRN ×2 (13:19→19:28)
--- NOTE | 2017-10-12 16:48 | Progress Note ---
Medicine Progress Note Date & Time of Visit: Oct 12, 2017 at 16:38. Subjective Pt was seen and examined Sitting in chair with no distress Pt said that he walked with PT today in the hallway Pt seems to be interested to [facility] for rehab Denies any hallucination, dizziness, chest pain Objective Last 8 Hrs Date Time Temp Pulse Resp B/P (MAP) Pulse Ox O2 Delivery O2 Flow Rate FiO2 10/12/17 16:00 Room Air 10/12/17 15:20 36.7 75 20 155/89 (111) 96 Room Air 10/12/17 12:15 36.5 84 20 160/98 (118) 97 Room Air 10/12/17 12:00 Room Air 10/12/17 11:55 36.5 84 20 160/98 (118) 97 Room Air Physical Exam: General- no acute distress Head- atraumatic Eyes- PERRL, EOMI, No nystagmus ENT- Decrease hearing function Neck- supple, no JVD Lungs- clear to auscultation Heart- regular rhythm; no murmur Abdomen- normal bowel sounds, soft Extremities- no calf tenderness, mild tremor Neuro- alert, oriented x 3; PERRL, EOMI Skin- warm & dry Assessment & Plan This is a 52-year-old man with past medical history of alcohol abuse who presents with complaints of generalized weakness beginning this morning. Alcohol withdrawal Ethanol level 101 on admission Continue Gabapentin withdrawal protocol Continue Banana bag Continue thiamine and folic acid Continue Ativan prn Agree to go for inpatient rehab No signs of DT Continue monitor for DT Metabolic acidosis Due to alcohol Anion gap of 25 on admission, now close after IVF Continue monitor resolved Ambulatory dysfunction Generalized weakness Due to alcohol Continue PT/OT Fall precaution Leukocytosis: Mostly due to reactive Wbc count of 18.76 on admission No signs of infection WBC normal today Dysphagia H/o esophageal stricture Aspiration precautions Mechanical ground diet HTN: BP elevated due to alcohol withdrawn H/o atenolol use Non compliant Continue monitor BP H/o urinary retention: Cont tamsulosin DVT Ppx: SCDs Code status: FULL Dispo: Interested to go to inpatient rehab/alcohol rehab Current Inpatient Medications: Current Inpatient Medications Medications (Trade) Dose Ordered Sig/Jaylene Route Start Time Stop Time Status Last Admin Dose Admin Gabapentin (Neurontin Tab) 600 mg Q12H PO 10/13/17 00:00 10/13/17 12:01 Gabapentin (Neurontin Tab) 600 mg Q24H PO 10/14/17 12:00 10/14/17 12:01 Folic Acid (Folvite Tab) 1 mg DAILY PO 10/11/17 09:00 11/10/17 08:59 10/12/17 08:18 1 MG Sodium Chloride (Sodium Chloride Tab) 1 gm BID PO 10/11/17 09:00 11/10/17 08:59 10/12/17 08:18 1 GM Tamsulosin HCl (Flomax Cap) 0.4 mg QAM PO 10/11/17 09:00 11/10/17 08:59 10/12/17 08:18 0.4 MG Thiamine HCl (Vitamin B-1 Tab) 50 mg DAILY PO 10/11/17 09:00 11/10/17 08:59 10/12/17 08:18 50 MG Acetaminophen (Tylenol Tab) 650 mg Q6H PRN PO 10/11/17 00:15 11/10/17 00:14 10/12/17 13:19 650 MG Atenolol (Tenormin Tab) 25 mg DAILY PO 10/12/17 09:00 11/10/17 08:59 10/12/17 08:18 25 MG Metoprolol Tartrate (Lopressor Iv) 2.5 mg Q6 PRN IV 10/11/17 09:00 11/10/17 08:59 10/11/17 09:04 2.5 MG
[2017-10-13] VITALS (7 sets, daily range): BP systolic 155–187; BP diastolic 85–104; PULSE 71–87; TEMP 36.4–37.1; O2SAT 95–98
[2017-10-13] MEDS: GABAPENTIN 600MG Q12H DOSE PO SCH ×2 (00:22→11:49)
[2017-10-13] MEDS: TAMSULOSIN HCL 0.4 MG CAP PO SCH (07:42)
[2017-10-13] MEDS: SODIUM CHLORIDE 1 GM TAB PO SCH ×2 (07:42→20:31)
[2017-10-13] MEDS: THIAMINE HCL 50 MG TAB PO SCH (07:43)
[2017-10-13] MEDS ORDERED: NURSING VERBAL MED ORDER ONE (16:30)
[2017-10-13] MEDS ORDERED: ONDANSETRON INJ 2 MG/ML 2 ML VIAL IV PRN (16:45)
--- NOTE | 2017-10-13 18:35 | Progress Note ---
Medicine Progress Note Date & Time of Visit: Oct 13, 2017 at 14:31. Subjective Pt was seen and examined Lying in bed with no distress Pt said that his legs feels weak and wobble He said that he gets tired easily He is interested to go to inpatient rehab for Physical therapy Denies inpatient rehab by [facility] Denies any chest pain, palpitation, dizziness and SOB Objective Last 8 Hrs Date Time Temp Pulse Resp B/P (MAP) Pulse Ox O2 Delivery O2 Flow Rate FiO2 10/13/17 16:00 Room Air 10/13/17 15:25 36.9 71 20 164/91 (115) 97 Room Air 10/13/17 12:00 Room Air 10/13/17 11:48 36.4 81 18 159/85 (109) 98 Room Air Physical Exam: General- no acute distress Head- atraumatic Eyes- PERRL, EOMI, No nystagmus ENT- Decrease hearing function Neck- supple, no JVD Lungs- clear to auscultation Heart- regular rhythm; no murmur Abdomen- normal bowel sounds, soft Extremities- no calf tenderness, mild tremor Neuro- alert, oriented x 3; PERRL, EOMI Skin- warm & dry Assessment & Plan This is a 52-year-old man with past medical history of alcohol abuse who presents with complaints of generalized weakness beginning this morning. Alcohol withdrawal Ethanol level 101 on admission Continue Gabapentin withdrawal protocol Continue Banana bag Continue thiamine and folic acid Continue Ativan prn Agree to go for inpatient rehab No signs of DT Continue monitor for DT Metabolic acidosis Due to alcohol Anion gap of 25 on admission, now close after IVF Continue monitor resolved Ambulatory dysfunction Generalized weakness Due to alcohol Continue PT/OT Fall precaution Leukocytosis: Mostly due to reactive Wbc count of 18.76 on admission No signs of infection WBC normal today Dysphagia H/o esophageal stricture Aspiration precautions Mechanical ground diet HTN: BP elevated due to alcohol withdrawn H/o atenolol use Non compliant Continue monitor BP H/o urinary retention: Cont tamsulosin DVT Ppx: SCDs Code status: FULL Disposition Waiting for placement Denies placement by [facility] Current Inpatient Medications: Current Inpatient Medications Medications (Trade) Dose Ordered Sig/Jaylene Route Start Time Stop Time Status Last Admin Dose Admin Gabapentin (Neurontin Tab) 600 mg Q24H PO 10/14/17 12:00 10/14/17 12:01 Folic Acid (Folvite Tab) 1 mg DAILY PO 10/11/17 09:00 11/10/17 08:59 10/13/17 07:42 1 MG Sodium Chloride (Sodium Chloride Tab) 1 gm BID PO 10/11/17 09:00 11/10/17 08:59 10/13/17 07:42 1 GM Tamsulosin HCl (Flomax Cap) 0.4 mg QAM PO 10/11/17 09:00 11/10/17 08:59 10/13/17 07:42 0.4 MG Thiamine HCl (Vitamin B-1 Tab) 50 mg DAILY PO 10/11/17 09:00 11/10/17 08:59 10/13/17 07:43 50 MG Acetaminophen (Tylenol Tab) 650 mg Q6H PRN PO 10/11/17 00:15 11/10/17 00:14 10/12/17 19:28 650 MG Atenolol (Tenormin Tab) 25 mg DAILY PO 10/12/17 09:00 11/10/17 08:59 10/13/17 07:43 25 MG Metoprolol Tartrate (Lopressor Iv) 2.5 mg Q6 PRN IV 10/11/17 09:00 11/10/17 08:59 10/11/17 09:04 2.5 MG Ondansetron HCl (Zofran Inj) 4 mg Q8H PRN IV 10/13/17 16:45 11/12/17 16:44 10/13/17 16:38 4 MG
[2017-10-13] MEDS: ACETAMINOPHEN 325 MG TAB PO PRN (21:47)
[2017-10-13] MEDS: METOPROLOL TARTRATE 1 MG/ML VIAL IV PRN ×2 (21:57→22:48)
[2017-10-14 00:21] VITALS: BP 173/97; PULSE 70; TEMP 36.7; O2SAT 96
[2017-10-14 07:13] VITALS: BP_SYST 156; BP_SYST 160; BP_DIAS 89; BP_DIAS 95; PULSE 66; TEMP 36.6; O2SAT 97
[2017-10-14] MEDS: TAMSULOSIN HCL 0.4 MG CAP PO SCH (07:35)
[2017-10-14] MEDS: THIAMINE HCL 50 MG TAB PO SCH (07:35)
[2017-10-14] MEDS: SODIUM CHLORIDE 1 GM TAB PO SCH ×2 (07:35→20:23)
[2017-10-14] MEDS ORDERED: GABAPENTIN 600MG X1 DOSE PO SCH (12:00)
--- NOTE | 2017-10-14 13:07 | Progress Note ---
Medicine Progress Note Date & Time of Visit: Oct 14, 2017 at 13:04. Subjective Pt was seen and examined Lying in bed with no distress Pt is more awake and alert He said that he continues to wobble with ambulation Denies any hallucination, chest pain, palpitation and SOB Objective Last 8 Hrs Date Time Temp Pulse Resp B/P (MAP) Pulse Ox O2 Delivery O2 Flow Rate FiO2 10/14/17 08:00 Room Air 10/14/17 07:13 36.6 66 20 160/95 (116) 97 Room Air 156/89 (111) Physical Exam: General- no acute distress Head- atraumatic Eyes- PERRL, EOMI, No nystagmus ENT- Decrease hearing function Neck- supple, no JVD Lungs- clear to auscultation Heart- regular rhythm; no murmur Abdomen- normal bowel sounds, soft Extremities- no calf tenderness, very mild tremor Neuro- alert, oriented x 3; PERRL, EOMI Skin- warm & dry Assessment & Plan This is a 52-year-old man with past medical history of alcohol abuse who presents with complaints of generalized weakness beginning this morning. Alcohol withdrawal Ethanol level 101 on admission Continue Gabapentin withdrawal protocol Continue Banana bag Continue thiamine and folic acid Continue Ativan prn Agree to go for inpatient rehab No signs of DT Continue monitor for DT Metabolic acidosis Due to alcohol Anion gap of 25 on admission, now close after IVF Continue monitor resolved Ambulatory dysfunction Generalized weakness Due to alcohol Continue PT/OT Fall precaution Waiting for placement for inpatient rehab Leukocytosis: Mostly due to reactive Wbc count of 18.76 on admission No signs of infection WBC normal today resolved Dysphagia H/o esophageal stricture Aspiration precautions Mechanical ground diet stable HTN: BP elevated due to alcohol withdrawn H/o atenolol use Non compliant Continue monitor BP H/o urinary retention: Cont tamsulosin DVT Ppx: SCDs Code status: FULL Disposition Waiting for placement Denies placement by [facility] Current Inpatient Medications: Current Inpatient Medications Medications (Trade) Dose Ordered Sig/Jaylene Route Start Time Stop Time Status Last Admin Dose Admin Folic Acid (Folvite Tab) 1 mg DAILY PO 10/11/17 09:00 11/10/17 08:59 10/14/17 07:35 1 MG Sodium Chloride (Sodium Chloride Tab) 1 gm BID PO 10/11/17 09:00 11/10/17 08:59 10/14/17 07:35 1 GM Tamsulosin HCl (Flomax Cap) 0.4 mg QAM PO 10/11/17 09:00 11/10/17 08:59 10/14/17 07:35 0.4 MG Thiamine HCl (Vitamin B-1 Tab) 50 mg DAILY PO 10/11/17 09:00 11/10/17 08:59 10/14/17 07:35 50 MG Acetaminophen (Tylenol Tab) 650 mg Q6H PRN PO 10/11/17 00:15 11/10/17 00:14 10/13/17 21:47 650 MG Atenolol (Tenormin Tab) 25 mg DAILY PO 10/12/17 09:00 11/10/17 08:59 10/14/17 07:35 25 MG Metoprolol Tartrate (Lopressor Iv) 2.5 mg Q6 PRN IV 10/11/17 09:00 11/10/17 08:59 10/13/17 22:48 2.5 MG Ondansetron HCl (Zofran Inj) 4 mg Q8H PRN IV 10/13/17 16:45 11/12/17 16:44 10/13/17 16:38 4 MG
[2017-10-14 15:27] VITALS: BP 147/91; PULSE 62; TEMP 36.6; O2SAT 100
[2017-10-14] MEDS: ACETAMINOPHEN 325 MG TAB PO PRN ×2 (15:34→23:50)
[2017-10-14 16:00] VITALS: O2SAT 100
[2017-10-14 23:28] VITALS: BP 166/102; PULSE 56; TEMP 36.8; O2SAT 94
[2017-10-15 05:45] VITALS: BP 166/104; PULSE 76
[2017-10-15] MEDS: METOPROLOL TARTRATE 1 MG/ML VIAL IV PRN (06:02)
[2017-10-15 07:19] LABS: CALCIUM 8.5 mg/dl (8.5-10.1); CREATININE 0.56 mg/dl (0.60-1.40); POTASSIUM 3.8 mmol/L (3.5-5.1)
[2017-10-15] MEDS: THIAMINE HCL 50 MG TAB PO SCH (07:52)
[2017-10-15] MEDS: TAMSULOSIN HCL 0.4 MG CAP PO SCH (07:52)
[2017-10-15] MEDS: SODIUM CHLORIDE 1 GM TAB PO SCH ×2 (07:52→20:41)
[2017-10-15 08:13] VITALS: BP_SYST 160; BP_SYST 165; BP_DIAS 94; BP_DIAS 95; PULSE 67; TEMP 36.8; O2SAT 97
[2017-10-15] MEDS: ACETAMINOPHEN 325 MG TAB PO PRN ×3 (10:24→22:39)
[2017-10-15 16:19] VITALS: BP 128/80; PULSE 75; TEMP 36.4; O2SAT 98
--- NOTE | 2017-10-15 17:54 | Progress Note ---
Medicine Progress Note Date & Time of Visit: Oct 15, 2017 at 17:49. Subjective Pt was seen and examined Sitting at the edge of the bed with no distress eating Pt said that his walking is getting better He said that he does not have the desire to drink now but he knows once he gets discharged, he will drink alcohol He said that he does not think he would be able to not drinking once discharge He wants to be discharged tomorrow Denies any hallucination, chest pain, palpitation, dizziness and SOB Objective Last 8 Hrs Date Time Temp Pulse Resp B/P (MAP) Pulse Ox O2 Delivery O2 Flow Rate FiO2 10/15/17 16:19 36.4 75 20 128/80 (96) 98 Room Air 10/15/17 16:00 Room Air Physical Exam: General- no acute distress Head- atraumatic Eyes- PERRL, EOMI, No nystagmus ENT- Decrease hearing function Neck- supple, no JVD Lungs- clear to auscultation Heart- regular rhythm; no murmur Abdomen- normal bowel sounds, soft Extremities- no calf tenderness, no tremor Neuro- alert, oriented x 3; PERRL, EOMI Skin- warm & dry Laboratory Results: Last 24 Hours Test 10/15/17 05:52 Sodium Level 132 mmol/L Potassium Level 3.8 mmol/L Chloride Level 99 mmol/L Carbon Dioxide Level 27 mmol/L Anion Gap 6.0 mmol/L Blood Urea Nitrogen 6 mg/dl Creatinine 0.56 mg/dl Est Creatinine Clear Calc Drug Dose 127.5 ml/min Estimated GFR () 136.9 Estimated GFR (Non- 118.1 BUN/Creatinine Ratio 11.0 Random Glucose 85 mg/dl Calcium Level 8.5 mg/dl Magnesium Level 1.9 mg/dl Assessment & Plan This is a 52-year-old man with past medical history of alcohol abuse who presents with complaints of generalized weakness beginning this morning. Alcohol withdrawal Ethanol level 101 on admission Continue Gabapentin withdrawal protocol Continue Banana bag Continue thiamine and folic acid Continue Ativan prn No signs of DT Agreed to go for inpatient rehab for physical therapy Clinically stable Metabolic acidosis Due to alcohol Anion gap of 25 on admission, now close after IVF Continue monitor resolved Ambulatory dysfunction Generalized weakness Due to alcohol Continue PT/OT Fall precaution Waiting for placement for inpatient rehab Leukocytosis: Mostly due to reactive Wbc count of 18.76 on admission No signs of infection WBC normal today resolved Dysphagia H/o esophageal stricture Aspiration precautions Mechanical ground diet stable HTN: BP elevated due to alcohol withdrawn H/o atenolol use Non compliant Continue monitor BP H/o urinary retention: Cont tamsulosin DVT Ppx: SCDs Code status: FULL Disposition Waiting for placement Denies placement by [facility] Current Inpatient Medications: Current Inpatient Medications Medications (Trade) Dose Ordered Sig/Jaylene Route Start Time Stop Time Status Last Admin Dose Admin Folic Acid (Folvite Tab) 1 mg DAILY PO 10/11/17 09:00 11/10/17 08:59 10/15/17 07:52 1 MG Sodium Chloride (Sodium Chloride Tab) 1 gm BID PO 10/11/17 09:00 11/10/17 08:59 10/15/17 07:52 1 GM Tamsulosin HCl (Flomax Cap) 0.4 mg QAM PO 10/11/17 09:00 11/10/17 08:59 10/15/17 07:52 0.4 MG Thiamine HCl (Vitamin B-1 Tab) 50 mg DAILY PO 10/11/17 09:00 11/10/17 08:59 10/15/17 07:52 50 MG Acetaminophen (Tylenol Tab) 650 mg Q6H PRN PO 10/11/17 00:15 11/10/17 00:14 10/15/17 16:38 650 MG Atenolol (Tenormin Tab) 25 mg DAILY PO 10/12/17 09:00 11/10/17 08:59 10/15/17 07:52 25 MG Metoprolol Tartrate (Lopressor Iv) 2.5 mg Q6 PRN IV 10/11/17 09:00 11/10/17 08:59 10/15/17 06:02 2.5 MG Ondansetron HCl (Zofran Inj) 4 mg Q8H PRN IV 10/13/17 16:45 11/12/17 16:44 10/13/17 16:38 4 MG
[2017-10-15 23:05] VITALS: BP 150/107; PULSE 73; TEMP 36.7; O2SAT 97
[2017-10-16 07:41] VITALS: BP 169/94; PULSE 66; TEMP 36.8; O2SAT 97
[2017-10-16] MEDS: TAMSULOSIN HCL 0.4 MG CAP PO SCH (08:22)
[2017-10-16] MEDS: SODIUM CHLORIDE 1 GM TAB PO SCH (08:22)
[2017-10-16] MEDS: THIAMINE HCL 50 MG TAB PO SCH (08:22)
[2017-10-16 12:23] VITALS: BP 169/94; PULSE 66; TEMP 36.8; O2SAT 97
--- NOTE | 2017-10-16 12:31 | Progress Note ---
Medicine Progress Note Date & Time of Visit: Oct 16, 2017 at 12:14. Subjective Pt was seen and examined Sitting at the edge of the bed eating his lunch Pt said that he feels fine to go home today He already got dress to leave He is asking for his 12 pack beers that has been held with security He said that he will give the beers to friends and probably will drink 1 or 2 cans from it. Denies any chest pain, palpitation, dizziness and SOB Objective Last 8 Hrs Date Time Temp Pulse Resp B/P (MAP) Pulse Ox O2 Delivery O2 Flow Rate FiO2 10/16/17 08:00 Room Air 10/16/17 07:41 36.8 66 16 169/94 (119 97 Room Air Physical Exam: General- no acute distress Head- atraumatic Eyes- PERRL, EOMI, No nystagmus ENT- Decrease hearing function Neck- supple, no JVD Lungs- clear to auscultation Heart- regular rhythm; no murmur Abdomen- normal bowel sounds, soft Extremities- no calf tenderness, no tremor Neuro- alert, oriented x 3; PERRL, EOMI Skin- warm & dry Assessment & Plan This is a 52-year-old man with past medical history of alcohol abuse who presents with complaints of generalized weakness beginning this morning. Alcohol withdrawal Ethanol level 101 on admission Continue Gabapentin withdrawal protocol Continue Banana bag Continue thiamine and folic acid Continue Ativan prn No signs of DT Agreed to go for inpatient rehab for physical therapy Clinically stable 10/16 Info was given by case management coordinator for inpatient alcohol rehab Pt made it clear that he would drink 1 or 2 cans from the 12 packs Asked him to leave the 12 pack beer in the hospital, he said no. He wants to take the beers home with him I encouraged pt to go to inpatient alcohol rehab, he will think about it. Fall precaution Metabolic acidosis Due to alcohol Anion gap of 25 on admission, now close after IVF Continue monitor resolved Ambulatory dysfunction Generalized weakness Due to alcohol Continue PT/OT Fall precaution Did not get approved for inpatient rehab for PT/OT case discussed with case management that will arranged him with home health services Leukocytosis: Mostly due to reactive Wbc count of 18.76 on admission No signs of infection WBC normal today resolved Dysphagia H/o esophageal stricture Aspiration precautions Mechanical ground diet stable HTN: BP elevated due to alcohol withdrawn H/o atenolol use Non compliant Continue monitor BP H/o urinary retention: Cont tamsulosin DVT Ppx: SCDs Code status: FULL Disposition Discharge home today with home health services Follow up with Dr. Burleson on 10/23 @ 4:45 PM at the [facility] Current Inpatient Medications: Current Inpatient Medications Medications (Trade) Dose Ordered Sig/Jaylene Route Start Time Stop Time Status Last Admin Dose Admin Folic Acid (Folvite Tab) 1 mg DAILY PO 10/11/17 09:00 11/10/17 08:59 10/16/17 08:22 1 MG Sodium Chloride (Sodium Chloride Tab) 1 gm BID PO 10/11/17 09:00 11/10/17 08:59 10/16/17 08:22 1 GM Tamsulosin HCl (Flomax Cap) 0.4 mg QAM PO 10/11/17 09:00 11/10/17 08:59 10/16/17 08:22 0.4 MG Thiamine HCl (Vitamin B-1 Tab) 50 mg DAILY PO 10/11/17 09:00 11/10/17 08:59 10/16/17 08:22 50 MG Acetaminophen (Tylenol Tab) 650 mg Q6H PRN PO 10/11/17 00:15 11/10/17 00:14 10/15/17 22:39 650 MG Atenolol (Tenormin Tab) 25 mg DAILY PO 10/12/17 09:00 11/10/17 08:59 10/16/17 08:22 25 MG Metoprolol Tartrate (Lopressor Iv) 2.5 mg Q6 PRN IV 10/11/17 09:00 11/10/17 08:59 10/15/17 06:02 2.5 MG Ondansetron HCl (Zofran Inj) 4 mg Q8H PRN IV 10/13/17 16:45 11/12/17 16:44 10/13/17 16:38 4 MG
--- NOTE | 2017-10-16 12:38 | Discharge Instructions ---
Discharge Instructions Date of Service Oct 16, 2017. Admission Reason for Admission: Alcohol Withdrawal, Ambulatory Dysfunction Discharge Discharge Diagnosis / Problem: Alcohol withdrawal, Ambulatory dysfunction Discharge Goals Goal(s): Decrease discomfort, Improve function, Improve disease control Activity Recommendations Activity Limitations: resume your previous activity (as tolerated) . Instructions / Follow-Up Instructions / Follow-Up Follow you with primary care provider Dr. Burleson on 10/23 @ 4:45 PM ( please try to make the appointment) Fall precaution Counseling on alcohol cessation ( please seek help such as alcohol rehab or AA meeting) Continue physical therapy Current Hospital Diet Patient's current hospital diet: Regular Diet Discharge Diet Recommended Diet: Regular Diet Pending Studies Studies pending at discharge: no Medical Emergencies . Who to Call and When: Medical Emergencies: If at any time you feel your situation is an emergency, please call 911 immediately. . Non-Emergent Contact Non-Emergency issues call your: Primary Care Provider Call Non-Emergent contact if: you have any medication questions . . "Provider Documentation" section prepared by Chito Ennis. .
--- NOTE | 2017-10-17 07:59 | Discharge Summary ---
Discharge Summary Date of Service Oct 17, 2017. Discharge Summary Admission Date: Oct 10, 2017 at 19:12 Discharge Date: Oct 16, 2017 Discharge Disposition: Home with services Principal Diagnosis: Alcohol withdrawal Secondary Diagnoses/Problems: Ambulatory dysfunction Metabolic acidosis Generalized weakness Leukocytosis: Dysphagia H/o urinary retention HTN Procedures: [~ rep ct add3]] CHEST ONE VIEW PORTABLE CLINICAL HISTORY: weakness, cough COMPARISON STUDY: 09/21/2017 FINDINGS: The cardiac and mediastinal contours are normal. There is no evidence of focal pulmonary consolidation. There is no evidence of failure. No pleural effusions are visualized.[ There is mild chronic interstitial thickening at the lung bases. There are old left-sided rib deformities. IMPRESSION: No active disease in the chest. Electronically signed by: Alejandro Lucas M.D. 10/10/2017 3:16 PM Dictated Date/Time: 10/10/2017 3:16 PM Medication Reconciliation Continued Medications: Atenolol (Tenormin) 25 Mg Tab 1 TAB PO DAILY for 30 Days, #30 TAB 5 Refills Folic Acid (Folic Acid) 1 Mg Tab 1 MG PO, TAB Sodium Chloride (Sodium Chloride) 1 Gm Tab 1 GM PO BID, #60 TAB 1 Refill Tamsulosin HCl (Tamsulosin HCl) 0.4 Mg Cap 0.4 MG PO QAM, #30 CAP 2 Refills Thiamine HCl (Vitamin B-1) 50 Mg Tab 50 MG PO DAILY, TAB Admission Information HPI (per Admitting provider): This is a 52-year-old man with past medical history of alcohol abuse who presents with complaints of generalized weakness beginning this morning. Patient has been admitted multiple times for alcohol withdrawal in the past, most recently from September 21-. Has interest in attending a rehab program but was not accepted to one by time of discharge during previous admission. Over the past few weeks, patient has been reportedly drinking 8-12 beers a day. Drank around 8 PM last evening and woke up this morning with generalized weakness and difficulty with ambulating. Required his a walker to get around his apartment. Began to feel shaky and nauseated, so walked to a beer distributor and drank 1/2 of a beer before EMS was called due to patient's inability to stand up on his own. Patient is a poor historian, so ROS is limited. Endorses feeling nauseous and weak but denies any confusion, seizures , falls or focal neurological deficits. Endorses dry cough. Denies fever, chills , lightheadedness, visual changes pain, shortness of breath, abdominal pain, bowel or bladder changes or LE swelling. Physical Exam (per Admitting): General Appearance: no apparent distress, + cachetic Head: normocephalic, atraumatic Eyes: normal inspection, PERRL, sclerae normal ENT: normal ENT inspection, hearing grossly normal, pharynx normal (Dry mucous membranes) Neck: supple, thyroid normal, trachea midline Respiratory/Chest: chest non-tender, lungs clear, normal breath sounds, no respiratory distress, no accessory muscle use Cardiovascular: regular rate, rhythm, no murmur, normal peripheral pulses Abdomen/GI: non tender, soft, no organomegaly Back: normal inspection Extremities/Musculoskelatal: normal inspection, no calf tenderness, no pedal edema Neurologic/Psych: no motor/sensory deficits, alert, normal mood/affect, oriented x 3, + abnormal gait (ataxic (chronic) ), + pertinent finding ( Tremulous ) Skin: normal color, warm/dry Hospital Course This is a 52-year-old man with past medical history of alcohol abuse who presents with complaints of generalized weakness beginning this morning. Alcohol withdrawal Ethanol level 101 on admission Continue Gabapentin withdrawal protocol Continue Banana bag Continue thiamine and folic acid Continue Ativan prn No signs of DT Agreed to go for inpatient rehab for physical therapy Clinically stable 4/2 Info was given by telehealth case manager for inpatient alcohol rehab Pt made it clear that he would drink 1 or 2 cans from the 12 packs Asked him to leave the 12 pack beer in the hospital, he said no. He wants to take the beers home with him I encouraged pt to go to inpatient alcohol rehab, he will think about it. Fall precaution Metabolic acidosis Due to alcohol Anion gap of 25 on admission, now close after IVF Continue monitor resolved Ambulatory dysfunction Generalized weakness Due to alcohol Continue PT/OT Fall precaution Did not get approved for inpatient rehab for PT/OT case discussed with case management that will arranged him with home health services Leukocytosis: Mostly due to reactive Wbc count of 18.76 on admission No signs of infection WBC normal today resolved Dysphagia H/o esophageal stricture Aspiration precautions Mechanical ground diet stable HTN: BP elevated due to alcohol withdrawn H/o atenolol use Non compliant Continue monitor BP H/o urinary retention: Cont tamsulosin DVT Ppx: SCDs Code status: FULL Disposition Discharge home today with home health services Follow up with Dr. Burleson on 10/23 @ 4:45 PM at the [facility] Total time spent on discharge = 35 minutes This includes examination of the patient, discharge planning, medication reconciliation, and communication with other providers. Discharge Instructions Discharge Instructions Date of Service Oct 16, 2017. Admission Reason for Admission: Alcohol Withdrawal, Ambulatory Dysfunction Discharge Discharge Diagnosis / Problem: Alcohol withdrawal, Ambulatory dysfunction Discharge Goals Goal(s): Decrease discomfort, Improve function, Improve disease control Activity Recommendations Activity Limitations: resume your previous activity (as tolerated) . Instructions / Follow-Up Instructions / Follow-Up Follow you with primary care provider Dr. Burleson on 10/23 @ 4:45 PM ( please try to make the appointment) Fall precaution Counseling on alcohol cessation ( please seek help such as alcohol rehab or AA meeting) Continue physical therapy Current Hospital Diet Patient's current hospital diet: Regular Diet Discharge Diet Recommended Diet: Regular Diet Pending Studies Studies pending at discharge: no Medical Emergencies . Who to Call and When: Medical Emergencies: If at any time you feel your situation is an emergency, please call 911 immediately. . Non-Emergent Contact Non-Emergency issues call your: Primary Care Provider Call Non-Emergent contact if: you have any medication questions . . "Provider Documentation" section prepared by Chito Ennis. . Additional Copies To Denis Burleson D.O.
== END 2017-10-16 12:59 | disposition home health service (06) | DRG 897 ==
LOC: EDBD 13:31 → C.EDB 13:31 → C.2T 19:12 → ENRESERV 19:23 → CANRESERV 10-13 19:38 → ENRESERV 10-13 19:38 → C.MS2W 10-13 21:10
PROVIDERS: ADMIT Internal Medicine; ATTEND Internal Medicine
DX: F10.239 Alcohol dependence with withdrawal, unspecified (principal); E87.2 Acidosis; Y90.5 Blood alcohol level of 100-119 mg/100 ml; D72.829 Elevated white blood cell count, unspecified; E83.42 Hypomagnesemia; R27.0 Ataxia, unspecified; R13.10 Dysphagia, unspecified; I10 Essential (primary) hypertension; R33.9 Retention of urine, unspecified; Z91.81 History of falling; Z87.891 Personal history of nicotine dependence; Z79.899 Other long term (current) drug therapy; Z88.0 Allergy status to penicillin; Z82.49 Family history of ischemic heart disease and other diseases of the circulatory system

== ENCOUNTER 2017-10-31 20:36 | Inpatient (IN) | payer OTHER ==
[~2017-10-31] VITALS: Ht 180.3 cm; Wt 60.0 kg
[2017-10-31] MEDS ORDERED: THIAMINE HCL 100 MG/ML 2 ML VIAL IV STA (21:10)
[2017-10-31] MEDS ORDERED: SODIUM CHLORIDE 0.9% 1000ML 1,000 ML IV STA ×2 (21:10→23:05)
[2017-10-31] MEDS ORDERED: LORAZEPAM 2 MG/ML 1 ML VIAL IV STA ×2 (21:15→23:00)
--- NOTE | 2017-10-31 21:28 | DIAGNOSTIC IMAGING REPORT ---
CHEST ONE VIEW PORTABLE CLINICAL HISTORY: Overdose COMPARISON STUDY: 10/10/2017 FINDINGS: The cardiac and mediastinal contours are normal. There is no evidence of focal pulmonary consolidation. There is no evidence of failure. No pleural effusions are visualized.[ There are old left-sided rib fractures. There is stable left basilar atelectasis/scarring. IMPRESSION: No active disease in the chest. Electronically signed by: Alejandro Lucas M.D. 10/31/2017 9:26 PM Dictated Date/Time: 10/31/2017 9:26 PM
[2017-10-31 21:44] LABS: HEMATOCRIT 38.5 % (42-52); HEMOGLOBIN 13.4 g/dL (14.0-18.0); MEAN CORPUSCULAR HEMOGLOBIN 31.7 pg (25-34); MEAN CORPUSCULAR HGB CONC 34.8 g/dl (32-36); RED CELL DISTRIBUTION WIDTH CV 15.2 % (11.5-14.5); RED CELL DISTRIBUTION WIDTH SD 50.9 fL (36.4-46.3); WHITE BLOOD COUNT 7.06 K/uL (4.8-10.8)
[2017-10-31 21:46] LABS: PTT PATIENT 24.6 SECONDS (21.0-31.0)
[2017-10-31 22:11] LABS: ALBUMIN 3.7 gm/dl (3.4-5.0); ALT/SGPT 55 U/L (12-78); AST/SGOT 137 U/L (15-37); BLOOD UREA NITROGEN 7 mg/dl (7-18); CALCIUM 8.7 mg/dl (8.5-10.1); CARBON DIOXIDE 18 mmol/L (21-32); CREATININE 0.67 mg/dl (0.60-1.40); GLUCOSE 90 mg/dl (70-99); LIPASE 100 U/L (73-393); POTASSIUM 3.8 mmol/L (3.5-5.1); SODIUM 133 mmol/L (136-145)
[2017-10-31 22:12] LABS: MEAN PLATELET VOLUME 9.6 fL (7.4-10.4); PLATELET COUNT 89 K/uL (130-400)
[2017-10-31 22:13] LABS: BASO % 0.1 %; BASO ABS # 0.01 K/uL (0-0.2); IG# 0.01 K/uL (0.00-0.02); LYMPH % 9.3 %; LYMPH ABS # 0.66 K/uL (1.2-3.4); MONO % 9.6 %; MONO ABS # 0.68 K/uL (0.11-0.59); NEUT % 80.9 %
[2017-10-31 22:16] LABS: ALKALINE PHOSPHATASE 175 U/L (45-117); CKMB 2.3 ng/ml (0.5-3.6); TOTAL PROTEIN 7.3 gm/dl (6.4-8.2)
--- NOTE | 2017-10-31 22:47 | DIAGNOSTIC IMAGING REPORT ---
CT HEAD WITHOUT CONTRAST (CT) CLINICAL HISTORY: OVERDOSE SYNCOPE, NAUSEA. COMPARISON STUDY: 09/21/2017 TECHNIQUE: Axial CT of the brain is performed from the vertex to the skull base. IV contrast was not administered for this examination. A dose lowering technique was utilized adhering to the principles of ALARA. CT DOSE: 614.27 mGy.cm FINDINGS: No intra or extra-axial mass lesions are visualized. There is no CT evidence of acute cortical infarction. There is no evidence of midline shift. There is no acute hemorrhage. No calvarial fractures are visualized. There are patchy white matter hypodensities likely on a small vessel basis. There is an old left caudate lacunar infarct. There is mild atrophy. There is no evidence of pathologic ventricular dilatation. There is no evidence of acute sinusitis IMPRESSION: No acute intracranial findings Electronically signed by: Alejandro Lucas M.D. 10/31/2017 10:46 PM Dictated Date/Time: 10/31/2017 10:45 PM
--- NOTE | 2017-10-31 23:54 | EMERGENCY ROOM VISIT NOTE ---
History Report prepared by Renetta: Faith Jordan Under the Supervision of: Dr. Malvin Chirinos D.O. First contact with patient: 21:10 Chief Complaint: SYNCOPE (NEAR SYNCOPE) Stated Complaint: SYNCOPE X 2, NAUSEA Nursing Triage Summary: Patient states he has not had alcohol in 2 days. normally drinks 10-12 8% alcohol beers a day. Has not had any food in 2 days. Has been dizzy since February. Today has been nauseated and had 2 syncopal episodes. 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 The patient fainted once in the kitchen and once near his couch. He reports that he landed softly each time and denies any injury. He is unsure why he fainted. He had some nausea this morning. He denies any abdominal pain, black stools, or bloody stools. He last drank a couple days ago. He had 10-12 beers at that time. 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 A total of 10 systems reviewed and were otherwise negative. Past Medical & Surgical Medical Problems: (1) Alcoholism (2) Ambulatory dysfunction (3) Delirium tremens (4) Dysphagia (5) Frequent falls (6) Hypertension Social History Problems: (1) Alcohol abuse Family History Hypertension Social History Smoking Status: Former Smoker Alcohol Use: heavy Drug Use: none Marital Status: single Housing Status: other Occupation Status: unemployed Current/Historical Medications No Active Prescriptions or Reported Meds Allergies Coded Allergies: Penicillins (Verified Adverse Reaction, Mild, TIRED, 10/31/17) Physical Exam Vital Signs Date Time Temp Pulse Resp B/P (MAP) Pulse Ox O2 Delivery O2 Flow Rate FiO2 11/01/17 00:07 97 11/01/17 00:05 100 16 165/102 97 Room Air 10/31/17 23:13 87 14 173/107 97 Room Air 10/31/17 22:21 93 16 98 10/31/17 22:13 77 16 192/113 98 Room Air 205/107 185/139 10/31/17 20:44 98 Room Air 10/31/17 20:44 36.8 99 19 190/113 98 Room Air 10/31/17 20:42 98 Physical Exam GENERAL: Patient is awake, alert, tremulous, and anxious appearing. EYES: The conjunctivae are clear. The pupils are round and reactive. EARS, NOSE, MOUTH AND THROAT: The nose is without any evidence of any deformity. Mucous membranes are moist tongue is midline NECK: The neck is nontender and supple. RESPIRATORY: Normal respiratory effort is noted there is no evidence of wheezing rhonchi or rales CARDIOVASCULAR: Regular rate and rhythm noted there no murmurs rubs or gallops normal S1 normal S2 GASTROINTESTINAL: The abdomen is soft. Bowel sounds are present in all quadrants. Abdomen is nontender MUSCULOSKELETAL/EXTREMITIES: There is no evidence of gross deformity full range of motion is noted in the hips and shoulders SKIN: There is no obvious evidence of any rash. There are no petechiae, pallor or cyanosis noted. NEUROLOGIC: Patient is awake alert and oriented x3, patellar reflexes are 3+ bilaterally, fine resting tremor noted. Medical Decision & Procedures ER Provider Diagnostic Interpretation: X-ray results as stated below per interpretation by me and the radiologist. Radiology results as stated below per my review and radiologist interpretation: CHEST ONE VIEW PORTABLE CLINICAL HISTORY: Overdose COMPARISON STUDY: 10/10/2017 FINDINGS: The cardiac and mediastinal contours are normal. There is no evidence of focal pulmonary consolidation. There is no evidence of failure. No pleural effusions are visualized.[ There are old left-sided rib fractures. There is stable left basilar atelectasis/scarring. IMPRESSION: No active disease in the chest. Electronically signed by: Alejandro Lucas M.D. 10/31/2017 9:26 PM Dictated Date/Time: 10/31/2017 9:[address] HEAD WITHOUT CONTRAST (CT) CLINICAL HISTORY: OVERDOSE SYNCOPE, NAUSEA. COMPARISON STUDY: 09/21/2017 TECHNIQUE: Axial CT of the brain is performed from the vertex to the skull base. IV contrast was not administered for this examination. A dose lowering technique was utilized adhering to the principles of ALARA. CT DOSE: 614.27 mGy.cm FINDINGS: No intra or extra-axial mass lesions are visualized. There is no CT evidence of acute cortical infarction. There is no evidence of midline shift. There is no acute hemorrhage. No calvarial fractures are visualized. There are patchy white matter hypodensities likely on a small vessel basis. There is an old left caudate lacunar infarct. There is mild atrophy. There is no evidence of pathologic ventricular dilatation. There is no evidence of acute sinusitis IMPRESSION: No acute intracranial findings Electronically signed by: Alejandro Lucas M.D. 10/31/2017 10:46 PM Dictated Date/Time: 10/31/2017 10:45 PM Laboratory Results 10/31/17 21:15 Red Blood Count 4.23, Mean Corpuscular Volume 91.0, Mean Corpuscular Hemoglobin 31.7, Mean Corpuscular Hemoglobin Concent 34.8, Mean Platelet Volume 9.6, Neutrophils (%) (Auto) 80.9, Lymphocytes (%) (Auto) 9.3, Monocytes (%) (Auto) 9.6, Eosinophils (%) (Auto) 0.0, Basophils (%) (Auto) 0.1, Neutrophils # (Auto) 5.70, Lymphocytes # (Auto) 0.66, Monocytes # (Auto) 0.68, Eosinophils # (Auto) 0.00, Basophils # (Auto) 0.01 10/31/17 21:15 Test 10/31/17 21:15 10/31/17 22:10 10/31/17 22:25 10/31/17 22:56 White Blood Count 7.06 K/uL (4.8-10.8) Red Blood Count 4.23 M/uL (4.7-6.1) Hemoglobin 13.4 g/dL (14.0-18.0) Hematocrit 38.5 % (42-52) Mean Corpuscular Volume 91.0 fL (80-100) Mean Corpuscular Hemoglobin 31.7 pg (25-34) Mean Corpuscular Hemoglobin Concent 34.8 g/dl (32-36) Platelet Count 89 K/uL (130-400) Mean Platelet Volume 9.6 fL (7.4-10.4) Neutrophils (%) (Auto) 80.9 % Lymphocytes (%) (Auto) 9.3 % Monocytes (%) (Auto) 9.6 % Eosinophils (%) (Auto) 0.0 % Basophils (%) (Auto) 0.1 % Neutrophils # (Auto) 5.70 K/uL (1.4-6.5) Lymphocytes # (Auto) 0.66 K/uL (1.2-3.4) Monocytes # (Auto) 0.68 K/uL (0.11-0.59) Eosinophils # (Auto) 0.00 K/uL (0-0.5) Basophils # (Auto) 0.01 K/uL (0-0.2) RDW Standard Deviation 50.9 fL (36.4-46.3) RDW Coefficient of Variation 15.2 % (11.5-14.5) Immature Granulocyte % (Auto) 0.1 % Immature Granulocyte # (Auto) 0.01 K/uL (0.00-0.02) Platelet Estimate DECREASED Prothrombin Time 10.2 SECONDS (9.0-12.0) Prothromb Time International Ratio 1.0 (0.9-1.1) Activated Partial Thromboplast Time 24.6 SECONDS (21.0-31.0) Partial Thromboplastin Ratio 0.9 Anion Gap 18.0 mmol/L (3-11) Est Creatinine Clear Calc Drug Dose 111.5 ml/min Estimated GFR () 127.1 Estimated GFR (Non- 109.7 BUN/Creatinine Ratio 10.9 (10-20) Osmolality 279 mOsm/kg (280-300) Calcium Level 8.7 mg/dl (8.5-10.1) Total Bilirubin 1.3 mg/dl (0.2-1) Direct Bilirubin 0.4 mg/dl (0-0.2) Aspartate Amino Transf (AST/SGOT) 137 U/L (15-37) Alanine Aminotransferase (ALT/SGPT) 55 U/L (12-78) Alkaline Phosphatase 175 U/L (45-117) Total Creatine Kinase 205 U/L (39-308) Creatine Kinase MB 2.3 ng/ml (0.5-3.6) Creatine Kinase MB Ratio 1.1 (0-3.0) Troponin I < 0.015 ng/ml (0-0.045) Total Protein 7.3 gm/dl (6.4-8.2) Albumin 3.7 gm/dl (3.4-5.0) Lipase 100 U/L (73-393) Salicylates Level < 1.7 mg/dl (2.8-20) Acetaminophen Level < 2 ug/ml (10-30) Ethyl Alcohol mg/dL < 3.0 mg/dl (0-3) Urine Color YELLOW Urine Appearance CLEAR (CLEAR) Urine pH 5.0 (4.5-7.5) Urine Specific [place] 1.017 (1.000-1.030) Urine Protein 1+ (NEG) Urine Glucose (UA) NEG (NEG) Urine Ketones 4+ (NEG) Urine Occult Blood TRACE (NEG) Urine Nitrite NEG (NEG) Urine Bilirubin NEG (NEG) Urine Urobilinogen NEG (NEG) Urine Leukocyte Esterase NEG (NEG) Urine WBC (Auto) 0 /hpf (0-5) Urine RBC (Auto) 0-4 /hpf (0-4) Urine Hyaline Casts (Auto) 0 /lpf (0-5) Urine Epithelial Cells (Auto) 0-5 /lpf (0-5) Urine Bacteria (Auto) NEG (NEG) Urine Opiates Screen NEG (NEG) Urine Methadone, Qualitative NEG (NEG) Urine Barbiturates NEG (NEG) Urine Phencyclidine (PCP) Level NEG (NEG) Ur Amphetamine/Methamphetamine NEG (NEG) MDMA (Ecstasy) Screen NEG (NEG) Urine Benzodiazepines Screen NEG (NEG) Urine Cocaine Metabolite NEG (NEG) Urine Marijuana (THC) NEG (NEG) Venous Blood pH 7.45 (7.36-7.41) Venous Blood Partial Pressure CO2 31 mmHg (38.0-50.0) Venous Blood Partial Pressure O2 45 mmHg Venous Blood HCO3 21 mmol/L Venous Blood Oxygen Saturation 80.8 % Venous Blood Base Excess -1.9 mEq/L Test 10/31/17 23:04 Lactic Acid Level 1.5 mmol/L (0.4-2.0) Laboratory results per my review. Medications Administered Medications (Trade) Dose Ordered Sig/Jaylene Route Start Time Stop Time Status Last Admin Dose Admin Sodium Chloride 1,000 ml @ 999 mls/hr Q1H1M STAT IV 10/31/17 21:10 10/31/17 22:10 DC 10/31/17 21:33 999 MLS/HR Thiamine HCl (Vitamin B-1 Inj) 100 mg NOW STAT IV 10/31/17 21:10 10/31/17 21:12 DC 10/31/17 21:33 100 MG Lorazepam (Ativan Inj) 1 mg NOW STAT IV 10/31/17 21:15 10/31/17 21:16 DC 10/31/17 21:33 1 MG Lorazepam (Ativan Inj) 1 mg NOW STAT IV 10/31/17 23:00 10/31/17 23:01 DC 10/31/17 23:11 1 MG Sodium Chloride 1,000 ml @ 999 mls/hr Q1H1M STAT IV 10/31/17 23:05 11/01/17 00:05 DC 10/31/17 23:13 999 MLS/HR ECG Per My Interpretation Indication: syncope Rate (beats per minute): 89 Rhythm: normal sinus Findings: no ectopy, other (no acute ST segment abnormality) Comparison ECG Date: 10-Oct-2017 Change: no significant change ED Course 2109: Thiamine HCl 100 mg IV, NSS 1,000 ml @ 999 mls/hr IV. 2113: The patient was evaluated in room B4B. A complete history and physical examination were performed. 2114: Lorazepam 1 mg IV. 2299: Lorazepam 1 mg IV. 2300: Upon reevaluation, the patient is resting comfortably. I discussed results and treatment plan with him. He verbalizes agreement and understanding. The patient will be evaluated for further management and care. 2305: NSS 1,000 ml @ 999 mls/hr IV 5: I discussed the patient's case [facility] Dalton[facility] The patient will be evaluated for further management. Medical Decision Prior records/ancillary studies reviewed. Triage Nursing notes reviewed. The patient's history was concerning for syncope. Differential diagnosis: Etiologies such as vasovagal event, infection, hypoglycemia, electrolyte abnormalities, cardiac sources, intracerebral event, toxicologic, neurologic, as well as others were entertained. The patient is a 52-year-old male who presented to the emergency department after having a syncopal episode. The patient had a history and physical exam consistent with early alcohol withdrawal. His blood pressure was elevated. He was tremulous. He was treated with IV fluids as well as benzodiazepines. On subsequent reevaluation he was somewhat improved but his laboratory studies revealed some degree of dehydration and I do feel his condition could be consistent with alcoholic ketoacidosis. I discussed patient's laboratory and radiographic studies with him. I also discussed his case with the [facility] They have agreed to evaluate the patient in the emergency department for further management and disposition. Medication Reconcilliation Current Medication List: was personally reviewed by me Blood Pressure Screening Patient's blood pressure: Elevated blood pressure Referred to hospitalist. Consults Time Called: [phone] Consulting Physician: Christine Bee hospitalist Returned Call: [phone] I discussed the patient's case with him. The patient will be evaluated for further management. Impression Primary Impression: Syncope Additional Impressions: Alcohol withdrawal Alcoholic ketoacidosis Scribe Attestation The scribe's documentation has been prepared under my direction and personally reviewed by me in its entirety. I confirm that the note above accurately reflects all work, treatment, procedures, and medical decision making performed by me. Departure Information Dispostion Being Evaluated By Hospitalist Prescriptions No Active Prescriptions or Reported Meds Referrals No Doctor, Assigned (PCP) Patient Instructions My [facility] Problem Qualifiers
[2017-11-01] VITALS (11 sets, daily range): BP systolic 111–159; BP diastolic 69–103; PULSE 71–92; TEMP 36.4–37.2; O2SAT 96–100; Ht 180.3 cm; Wt 60.0 kg
[2017-11-01] MEDS ORDERED: LORAZEPAM 1 MG TAB PO PRN (01:30)
[2017-11-01] MEDS ORDERED: ALUMINUM/MAGNESIUM/SIMETH (MAALOX MAX) 30 ML UDC PO PRN (01:30)
[2017-11-01] MEDS ORDERED: NITROGLYCERIN 0.4 MG SL PER TAB CHARGE SL PRN (01:30)
[2017-11-01] MEDS ORDERED: ONDANSETRON INJ 2 MG/ML 2 ML VIAL IV PRN (01:30)
[2017-11-01] MEDS ORDERED: LORAZEPAM 2 MG/ML 1 ML VIAL IV PRN (01:30)
[2017-11-01] MEDS ORDERED: POLYETHYLENE (MIRALAX) 17 GM PACK PO PRN (01:30)
[2017-11-01] MEDS ORDERED: GABAPENTIN 600 MG TAB PO STA (02:55)
[2017-11-01] MEDS: SODIUM CHLORIDE 0.9% 1000ML 1,000 ML IV SCH ×2 (03:18→17:00)
[2017-11-01] MEDS ORDERED: CLONIDINE HCL 0.1 MG TAB PO PRN (07:30)
--- NOTE | 2017-11-01 07:46 | HISTORY & PHYSICAL EXAMINATION ---
DATE OF ADMISSION: 11/01/2017 CHIEF COMPLAINT: Falls and alcohol withdrawal. HISTORY OF PRESENT ILLNESS: This is a 52-year-old male with past medical history significant for alcoholism,alcohol withdrawal, history of ambulatory dysfunction, ataxia, dysphagia, frequent falls, history of hypertension , history of hyponatremia who has multiple admissions in the recent past for alcoholism, presents with falls at home. Patient says since last 2 days he is not drinking. He says he just stopped drinking on his own. He says sometimes he tries but he says he cannot guarantee that he will stop for long time, but today at home, he was falling and is feeling very weak in his legs, because of that he came to the hospital and he seemed to be in withdrawal. Initially in the ER, his blood pressure was high in 200s, and was tachycardic and somewhat shaky, but patient is alert and oriented. Denies any headaches, no blurred vision, no earache, no runny nose, no sore throat, no difficulty swallowing. No chest pain, no shortness of breath, no cough, no abdominal pain, no nausea, no vomiting. Normal bowel and bladder movements. Saying appetite is okay, no swelling in the legs. ALLERGIES: PENICILLIN. PAST MEDICAL HISTORY: As mentioned above. PAST SURGICAL HISTORY: History of hip fractures and calcaneus fracture. History of esophageal stricture status post dilatations. MEDICATIONS: Patient is discharged on atenolol 25 mg p.o. daily, folic acid, sodium chloride 1 gram p.o. b.i.d., Flomax 0.4 mg p.m., thiamine 50 mg p.o. daily. FAMILY HISTORY: Hypertension. SOCIAL HISTORY: Former smoker, heavy alcohol abuse. Single, lives alone. REVIEW OF SYMPTOMS: As per HPI. Rest of review of systems negative. PHYSICAL EXAMINATION: GENERAL: Patient is thin and frail, somewhat shaky. VITAL SIGNS: Temperature 36.8, pulse 77, respiratory rate 16, blood pressure was 205/107 when he came in; currently 173/95, oxygen 96% on room air. HEENT: No pallor, no icterus. Pupils equal, round, reactive. NECK: No JVD, no neck masses, no carotid bruits. CARDIOVASCULAR: S1, S2 heard. Tachycardia. No murmurs. RESPIRATORY SYSTEM: Clear to auscultation bilaterally. No wheezing, no crackles. ABDOMEN: Soft, bowel sounds present. Nontender. No distention. CENTRAL NERVOUS SYSTEM: Alert and awake and oriented, somewhat shaky. Nonfocal. EXTREMITIES: No edema, no erythema. LABS: WBC 7, hemoglobin 13.4, hematocrit 35.5, platelets 89. Sodium 133, potassium 3.8, chloride 198, bicarbonate 18, BUN 7, creatinine 0.6, serum glucose 90. Lactic acid 1.5, calcium 8.7, total bilirubin 1.3, direct bilirubin 0.4, AST 137, ALT was 55, alkaline phosphatase is 175, troponin I less than 0.015. Lipase 100. PT 10.2, INR 1, APTT 24.6. Alcohol level less than 3, salicylate less than 1.7, acetaminophen less than 2. Urinalysis negative. CT of the head, no acute findings. Chest x-ray, no acute disease in the chest. ASSESSMENT AND PLAN: This is a 52-year-old male who presents with alcoholism and frequent falls. 1. Alcoholism and alcohol withdrawal. Patient says he stopped drinking on his own, but he says he cannot guarantee that he can stop drinking forever, he tries to stop drinking in between sometimes,..In withdrawal. We will place him on gabapentin withdrawal protocol and IV Ativan p.r.n., p.o. thiamine, folic acid and multivitamin. Monitor on tele floor. Counseling for alcohol cessation when patient is more stable. 2. Frequent falls most likely from alcoholism and also possibly from chronic alcoholism. PT, OT when patient is more stable. 3. History of dysphagia, history of esophageal stricture and dilatation in the past. Patient says currently he is swallowing okay. 4. History of hypertension most likely from alcohol withdrawal. Patient is on atenolol, but seems to be noncompliant. 5. Patient has history of urinary retention On Flomax. Non complaint with medication 6. History of hyponatremia, on sodium tablets but patient seems to be noncompliant with his medication.follow labs 7. Deep venous thrombosis prophylaxis, SCDs for now. 8. Disposition: Admit to tele floor. PT and OT prior to discharge. surgical services manager for help with discharge planning. Wants to be at full code. [facility]
[2017-11-01] MEDS: THIAMINE HCL 50 MG TAB PO SCH ×2 (09:00→13:05)
[2017-11-01] MEDS: CEROVITE ADV FORMULA TAB PO SCH ×2 (09:00→13:03)
[2017-11-01] MEDS: SODIUM CHLORIDE 1 GM TAB PO SCH ×3 (09:00→19:27)
[2017-11-01] MEDS: GABAPENTIN 600MG Q6H DOSE PO SCH ×2 (13:04→17:00)
--- NOTE | 2017-11-01 17:32 | Progress Note ---
Progress Note Date of Service Nov 01, 2017. Progress Note Attending note: Patient admitted earlier today please see H&P for further details Briefly 51-year-old male with history of chronic alcohol abuse Presented with withdrawal symptoms Started with gabapentin EtOH withdrawal protocol/IV Ativan p.r.n., p.o. thiamine, folic acid and multivitamin. Patient mentions he was sleeping all through the day Denies of being anxious Has fine tremor on hands Will need PT OT evaluation for frequent falls Continue to monitor in telemetry-for observation of alcohol withdrawal
[2017-11-01] MEDS: TAMSULOSIN HCL 0.4 MG CAP PO SCH (19:27)
[2017-11-01] MEDS: ACETAMINOPHEN 325 MG TAB PO PRN (19:29)
[2017-11-01] MEDS: LORAZEPAM 2 MG/ML 1 ML VIAL IV PRN (21:01)
[2017-11-01] MEDS: GABAPENTIN 600MG Q8H DOSE PO SCH (23:34)
[2017-11-02] MEDS: LORAZEPAM 2 MG/ML 1 ML VIAL IV PRN ×3 (03:34→19:29)
[2017-11-02 03:56] VITALS: BP 149/100; PULSE 73; TEMP 36.8; O2SAT 96
[2017-11-02] MEDS: SODIUM CHLORIDE 0.9% 1000ML 1,000 ML IV SCH ×2 (05:59→21:23)
[2017-11-02 06:43] LABS: HEMATOCRIT 38.1 % (42-52); MEAN CELL VOLUME 91.6 fL (80-100); MEAN CORPUSCULAR HEMOGLOBIN 31.3 pg (25-34); MEAN CORPUSCULAR HGB CONC 34.1 g/dl (32-36); RED CELL DISTRIBUTION WIDTH CV 14.9 % (11.5-14.5); RED CELL DISTRIBUTION WIDTH SD 50.4 fL (36.4-46.3); WHITE BLOOD COUNT 6.44 K/uL (4.8-10.8)
[2017-11-02 06:46] LABS: MEAN PLATELET VOLUME 10.4 fL (7.4-10.4); PLATELET COUNT 70 K/uL (130-400)
[2017-11-02 07:10] LABS: BASO % 0.5 %; BASO ABS # 0.03 K/uL (0-0.2); EOS ABS # 0.19 K/uL (0-0.5); IG# 0.02 K/uL (0.00-0.02); LYMPH ABS # 2.19 K/uL (1.2-3.4); MONO % 14.3 %; MONO ABS # 0.92 K/uL (0.11-0.59); NEUT % 47.9 %; NEUT ABS # 3.09 K/uL (1.4-6.5)
[2017-11-02 07:18] LABS: CREATININE 0.58 mg/dl (0.60-1.40); POTASSIUM 3.1 mmol/L (3.5-5.1)
[2017-11-02] MEDS: SODIUM CHLORIDE 1 GM TAB PO SCH (07:38)
[2017-11-02] MEDS: GABAPENTIN 600MG Q8H DOSE PO SCH ×2 (07:39→15:45)
[2017-11-02] MEDS: THIAMINE HCL 50 MG TAB PO SCH (07:40)
[2017-11-02 08:07] VITALS: BP 124/84; PULSE 74; TEMP 37.1; O2SAT 96
[2017-11-02 10:45] VITALS: BP 127/81; PULSE 73; TEMP 36.4; O2SAT 98
[2017-11-02] MEDS ORDERED: POTASSIUM CHLORIDE 10 MEQ TABCR PO STA (10:45)
[2017-11-02] MEDS ORDERED: MAGNESIUM SULFATE 1GM / D5W 100 ML IV ONE (11:00)
[2017-11-02] MEDS: ACETAMINOPHEN 325 MG TAB PO PRN (15:49)
[2017-11-02 16:00] VITALS: BP 140/93; PULSE 73; TEMP 36.4; O2SAT 97
--- NOTE | 2017-11-02 18:50 | Progress Note ---
Internal Med Progress Note Date of Service: Nov 02, 2017. Provider Documentation: SUBJECTIVE: Mention he has been sleeping all day Denies of being anxious or agitated No agitation noted, vitals remained stable OBJECTIVE: Vital Signs-as noted below Exam: General-chronically ill-appearing no apparent Eyes-sclera nonicteric ENT-moist oral Neck-neck supple Lungs-clear to auscultate no wheeze or rales Heart-regular S1-S2 Abdomen-soft Extremities-no lower extremity edema Neuro-no focal neurological Lab data as noted below. ASSESSMENT & PLAN: CHRONIC ALCOHOL ABUSE/WITHDRAWAL cont on on gabapentin withdrawal protocol and IV Ativan p.r.n., p.o. thiamine, folic acid and multivitamin. counselled for to quit drinking alcohol -as it can soon lead him to life threatening illness /permanent liver damage with multiorgan failure pt does not appear to be receptive does not want to discuss about alcohol rehab FREQUENT FALLS POSSIBLY SECONDARY TO ALCOHOLISM/INTOXICATION Continue withdrawal protocol PT OT evaluation Fall precaution DVT PROPHYLAXIS SCD and teds Ambulate DISPOSITION To be determined PT OT evaluation requested Patient refused alcohol rehab in the past Willing for skilled rehab Social service consulted for discharge planning Vital Signs: Date Time Temp Pulse Resp B/P (MAP) Pulse Ox O2 Delivery O2 Flow Rate FiO2 11/02/17 16:00 Room Air 11/02/17 16:00 36.4 73 20 140/93 (109) 97 Room Air 11/02/17 12:00 Room Air 11/02/17 10:45 36.4 73 20 127/81 (96) 98 Room Air 11/02/17 08:07 37.1 74 20 124/84 (97) 96 Room Air 11/02/17 08:00 Room Air 11/02/17 04:00 Room Air 11/02/17 03:56 36.8 73 18 149/100 (116) 96 Room Air 11/01/17 23:59 Room Air 11/01/17 23:31 37.2 77 18 155/96 (115) 96 11/01/17 20:02 37.0 85 16 151/91 (111) 97 Room Air 11/01/17 20:00 Room Air Lab Results: Results Past 24 Hours Test 11/02/17 06:11 Range/Units White Blood Count 6.44 4.8-10.8 K/uL Red Blood Count 4.16 4.7-6.1 M/uL Hemoglobin 13.0 14.0-18.0 g/dL Hematocrit 38.1 42-52 % Mean Corpuscular Volume 91.6 80-100 fL Mean Corpuscular Hemoglobin 31.3 25-34 pg Mean Corpuscular Hemoglobin Concent 34.1 32-36 g/dl Platelet Count 70 130-400 K/uL Mean Platelet Volume 10.4 7.4-10.4 fL Neutrophils (%) (Auto) 47.9 % Lymphocytes (%) (Auto) 34.0 % Monocytes (%) (Auto) 14.3 % Eosinophils (%) (Auto) 3.0 % Basophils (%) (Auto) 0.5 % Neutrophils # (Auto) 3.09 1.4-6.5 K/uL Lymphocytes # (Auto) 2.19 1.2-3.4 K/uL Monocytes # (Auto) 0.92 0.11-0.59 K/uL Eosinophils # (Auto) 0.19 0-0.5 K/uL Basophils # (Auto) 0.03 0-0.2 K/uL RDW Standard Deviation 50.4 36.4-46.3 fL RDW Coefficient of Variation 14.9 11.5-14.5 % Immature Granulocyte % (Auto) 0.3 % Immature Granulocyte # (Auto) 0.02 0.00-0.02 K/uL Large Platelets 1+ Sodium Level 134 136-145 mmol/L Potassium Level 3.1 3.5-5.1 mmol/L Chloride Level 99 98-107 mmol/L Carbon Dioxide Level 29 21-32 mmol/L Anion Gap 6.0 3-11 mmol/L Blood Urea Nitrogen 7 7-18 mg/dl Creatinine 0.58 0.60-1.40 mg/dl Est Creatinine Clear Calc Drug Dose 125.0 ml/min Estimated GFR () 134.9 Estimated GFR (Non- 116.4 BUN/Creatinine Ratio 12.5 10-20 Random Glucose 100 70-99 mg/dl Calcium Level 8.0 8.5-10.1 mg/dl Magnesium Level 1.6 1.8-2.4 mg/dl Vitamin B12 Level 500 211-911 pg/mL 25-Hydroxy Vitamin D Total 17.9 30-100 ng/ml Folate 11.92 >5.38 ng/mL
[2017-11-02 19:52] VITALS: BP 140/93; PULSE 73; TEMP 36.4; O2SAT 97
[2017-11-02] MEDS: TAMSULOSIN HCL 0.4 MG CAP PO SCH (21:26)
[2017-11-02 23:30] VITALS: BP_SYST 180; BP_SYST 183; BP_DIAS 118; BP_DIAS 90; PULSE 79; TEMP 36.5; O2SAT 98
[2017-11-03] MEDS: CLONIDINE HCL 0.1 MG TAB PO PRN (00:40)
[2017-11-03] MEDS: ACETAMINOPHEN 325 MG TAB PO PRN ×3 (01:51→15:52)
[2017-11-03] MEDS: GABAPENTIN 600MG Q12H DOSE PO SCH ×2 (03:52→16:21)
[2017-11-03 07:06] LABS: HEMATOCRIT 33.5 % (42-52); HEMOGLOBIN 11.6 g/dL (14.0-18.0); MEAN CELL VOLUME 90.5 fL (80-100); MEAN CORPUSCULAR HEMOGLOBIN 31.4 pg (25-34); MEAN CORPUSCULAR HGB CONC 34.6 g/dl (32-36); RED CELL DISTRIBUTION WIDTH CV 14.7 % (11.5-14.5); RED CELL DISTRIBUTION WIDTH SD 49.3 fL (36.4-46.3); WHITE BLOOD COUNT 6.16 K/uL (4.8-10.8)
[2017-11-03 07:12] LABS: BASO % 0.2 %; BASO ABS # 0.01 K/uL (0-0.2); EOS % 2.4 %; EOS ABS # 0.15 K/uL (0-0.5); IG# 0.02 K/uL (0.00-0.02); LYMPH % 28.4 %; LYMPH ABS # 1.75 K/uL (1.2-3.4); MEAN PLATELET VOLUME 9.9 fL (7.4-10.4); MONO % 13.6 %; MONO ABS # 0.84 K/uL (0.11-0.59); NEUT % 55.1 %; NEUT ABS # 3.39 K/uL (1.4-6.5); PLATELET COUNT 54 K/uL (130-400)
[2017-11-03 07:31] VITALS: BP 156/93; PULSE 64; TEMP 36.8; O2SAT 96
[2017-11-03 07:36] LABS: CREATININE 0.46 mg/dl (0.60-1.40); POTASSIUM 3.1 mmol/L (3.5-5.1)
[2017-11-03] MEDS: SODIUM CHLORIDE 1 GM TAB PO SCH ×2 (08:37→19:40)
[2017-11-03] MEDS: CEROVITE ADV FORMULA TAB PO SCH (08:37)
[2017-11-03] MEDS: THIAMINE HCL 50 MG TAB PO SCH (08:38)
[2017-11-03] MEDS: SODIUM CHLORIDE 0.9% 1000ML 1,000 ML IV SCH (09:27)
[2017-11-03 15:22] VITALS: BP 142/88; PULSE 74; TEMP 36.6; O2SAT 96
--- NOTE | 2017-11-03 17:18 | Progress Note ---
Internal Med Progress Note Date of Service: Nov 03, 2017. Provider Documentation: SUBJECTIVE: feels much better no agitation or discomfort noted says he walked on the [address] still feels off balance not sure about rehab OBJECTIVE: Vital Signs-as noted below Exam: General-chronically ill-appearing no apparent Eyes-sclera nonicteric ENT-moist oral Neck-neck supple Lungs-clear to auscultate no wheeze or rales Heart-regular S1-S2 Abdomen-soft Extremities-no lower extremity edema Neuro-no focal neurological Lab data as noted below. ASSESSMENT & PLAN: CHRONIC ALCOHOL ABUSE/WITHDRAWAL on Neurontin taper dose no sign of active withdrawal counselled for to quit drinking alcohol -as it can soon lead him to life threatening illness /permanent liver damage with multiorgan failure pt does not appear to be receptive does not want to discuss about alcohol rehab offered for skilled rehab -pt wants to stay in hospital a while ( 1-2 weeks ) till he feels better than go home updated Hospital will not be able to accommodate his for that long duration /it is an acute care facility that is why transition rehab is referred to recover strength gradually Pt wants to think about it FREQUENT FALLS POSSIBLY SECONDARY TO ALCOHOLISM/INTOXICATION Continue withdrawal protocol PT OT evaluation Fall precaution DVT PROPHYLAXIS SCD and teds Ambulate DISPOSITION To be determined PT OT evaluation requested Patient refused alcohol rehab in the past now does not want to go to skilled rehab either Social service consulted for discharge planning Vital Signs: Date Time Temp Pulse Resp B/P (MAP) Pulse Ox O2 Delivery O2 Flow Rate FiO2 11/03/17 16:00 Room Air 11/03/17 15:22 36.6 74 18 142/88 (106) 96 11/03/17 08:35 Room Air 11/03/17 07:31 36.8 64 19 156/93 (114) 96 11/03/17 00:50 Room Air 11/02/17 23:30 36.5 79 18 180/90 (120) 98 Room Air 183/118 (139) 11/02/17 20:05 Room Air 11/02/17 19:52 36.4 73 20 97 Lab Results: Results Past 24 Hours Test 11/03/17 06:39 Range/Units White Blood Count 6.16 4.8-10.8 K/uL Red Blood Count 3.70 4.7-6.1 M/uL Hemoglobin 11.6 14.0-18.0 g/dL Hematocrit 33.5 42-52 % Mean Corpuscular Volume 90.5 80-100 fL Mean Corpuscular Hemoglobin 31.4 25-34 pg Mean Corpuscular Hemoglobin Concent 34.6 32-36 g/dl Platelet Count 54 130-400 K/uL Mean Platelet Volume 9.9 7.4-10.4 fL Neutrophils (%) (Auto) 55.1 % Lymphocytes (%) (Auto) 28.4 % Monocytes (%) (Auto) 13.6 % Eosinophils (%) (Auto) 2.4 % Basophils (%) (Auto) 0.2 % Neutrophils # (Auto) 3.39 1.4-6.5 K/uL Lymphocytes # (Auto) 1.75 1.2-3.4 K/uL Monocytes # (Auto) 0.84 0.11-0.59 K/uL Eosinophils # (Auto) 0.15 0-0.5 K/uL Basophils # (Auto) 0.01 0-0.2 K/uL RDW Standard Deviation 49.3 36.4-46.3 fL RDW Coefficient of Variation 14.7 11.5-14.5 % Immature Granulocyte % (Auto) 0.3 % Immature Granulocyte # (Auto) 0.02 0.00-0.02 K/uL Sodium Level 133 136-145 mmol/L Potassium Level 3.1 3.5-5.1 mmol/L Chloride Level 100 98-107 mmol/L Carbon Dioxide Level 27 21-32 mmol/L Anion Gap 6.0 3-11 mmol/L Blood Urea Nitrogen 7 7-18 mg/dl Creatinine 0.46 0.60-1.40 mg/dl Est Creatinine Clear Calc Drug Dose 157.6 ml/min Estimated GFR () 148.4 Estimated GFR (Non- 128.0 BUN/Creatinine Ratio 14.7 10-20 Random Glucose 89 70-99 mg/dl Calcium Level 8.0 8.5-10.1 mg/dl Magnesium Level 1.7 1.8-2.4 mg/dl
[2017-11-03] MEDS ORDERED: POTASSIUM CHLORIDE 10 MEQ TABCR PO STA (19:02)
[2017-11-03] MEDS ORDERED: MAGNESIUM SULFATE 1GM / D5W 100 ML IV STA (19:03)
[2017-11-03] MEDS: MAGNESIUM OXIDE 400 MG TAB PO SCH (19:40)
[2017-11-03] MEDS: TAMSULOSIN HCL 0.4 MG CAP PO SCH ×2 (21:40→21:42)
[2017-11-03 23:54] VITALS: BP 193/109; PULSE 83; TEMP 36.9; O2SAT 97
[2017-11-04 07:21] VITALS: BP 177/104; PULSE 69; TEMP 36.7; O2SAT 96
[2017-11-04] MEDS: SODIUM CHLORIDE 1 GM TAB PO SCH ×2 (08:04→19:44)
[2017-11-04] MEDS: CLONIDINE HCL 0.1 MG TAB PO PRN (08:04)
[2017-11-04] MEDS: MAGNESIUM OXIDE 400 MG TAB PO SCH ×2 (08:04→19:44)
[2017-11-04] MEDS: CEROVITE ADV FORMULA TAB PO SCH (08:04)
[2017-11-04] MEDS: THIAMINE HCL 50 MG TAB PO SCH (08:04)
[2017-11-04] MEDS: POTASSIUM CHLORIDE 20 MEQ TABCR PO SCH (08:05)
[2017-11-04] MEDS: ACETAMINOPHEN 325 MG TAB PO PRN ×3 (08:11→21:13)
[2017-11-04 08:16] LABS: CALCIUM 8.5 mg/dl (8.5-10.1); CREATININE 0.5 mg/dl (0.60-1.40); POTASSIUM 3.5 mmol/L (3.5-5.1)
[2017-11-04 15:41] VITALS: BP 152/92; PULSE 59; TEMP 36.3; O2SAT 99
[2017-11-04] MEDS ORDERED: GABAPENTIN 600MG Q24H DOSE PO SCH (16:00)
--- NOTE | 2017-11-04 20:25 | Progress Note ---
Internal Med Progress Note Date of Service: Nov 04, 2017. Provider Documentation: SUBJECTIVE: Continues to feel better Able to be out of bed, ambulating independently Still complains of feeling quite weak, concerned about balance and safety Patient is counseled again for rehab after discharge from hospital Declines Wants to return home when he feels a bit better Does not want any skilled or alcohol rehab OBJECTIVE: Vital Signs-as noted below Exam: General-chronically ill-appearing no apparent Eyes-sclera nonicteric ENT-moist oral Neck-neck supple Lungs-clear to auscultate no wheeze or rales Heart-regular S1-S2 Abdomen-soft Extremities-no lower extremity edema Neuro-no focal neurological Lab data as noted below. ASSESSMENT & PLAN: CHRONIC ALCOHOL ABUSE/WITHDRAWAL on Neurontin taper dose no sign of active withdrawal counselled for to quit drinking alcohol -as it can soon lead him to life threatening illness /permanent liver damage with multiorgan failure pt does not appear to be receptive does not want to discuss about alcohol rehab offered for skilled rehab -pt wants to stay in hospital a while ( 1-2 weeks ) till he feels better than go home updated Hospital will not be able to accommodate his for that long duration /it is an acute care facility that is why transition rehab is referred to recover strength gradually Declines option for rehab [place] POSSIBLY SECONDARY TO ALCOHOLISM/INTOXICATION Continue withdrawal protocol PT OT evaluation Fall precaution DVT PROPHYLAXIS SCD and teds Ambulate DISPOSITION To be determined PT OT evaluation requested Patient refused alcohol rehab in the past now does not want to go to skilled rehab either Social service consulted for discharge planning Vital Signs: Date Time Temp Pulse Resp B/P (MAP) Pulse Ox O2 Delivery O2 Flow Rate FiO2 11/04/17 20:00 Room Air 11/04/17 16:26 Room Air 11/04/17 15:41 36.3 59 19 152/92 (112) 99 11/04/17 08:00 Room Air 11/04/17 07:21 36.7 69 18 177/104 (128) 96 11/04/17 00:05 Room Air 11/03/17 23:54 36.9 83 20 193/109 (137) 97 Room Air Lab Results: Results Past 24 Hours Test 11/04/17 07:22 Range/Units Sodium Level 132 136-145 mmol/L Potassium Level 3.5 3.5-5.1 mmol/L Chloride Level 98 98-107 mmol/L Carbon Dioxide Level 27 21-32 mmol/L Anion Gap 7.0 3-11 mmol/L Blood Urea Nitrogen 6 7-18 mg/dl Creatinine 0.50 0.60-1.40 mg/dl Est Creatinine Clear Calc Drug Dose 145.0 ml/min Estimated GFR () 143.4 Estimated GFR (Non- 123.7 BUN/Creatinine Ratio 12.0 10-20 Random Glucose 90 70-99 mg/dl Calcium Level 8.5 8.5-10.1 mg/dl Magnesium Level 1.9 1.8-2.4 mg/dl
[2017-11-04] MEDS: TAMSULOSIN HCL 0.4 MG CAP PO SCH (21:13)
[2017-11-04 22:40] VITALS: BP 165/98; PULSE 66; TEMP 36.7; O2SAT 98
[2017-11-05] MEDS: ACETAMINOPHEN 325 MG TAB PO PRN ×4 (04:04→21:35)
[2017-11-05] MEDS: MAGNESIUM OXIDE 400 MG TAB PO SCH ×2 (07:14→20:04)
[2017-11-05] MEDS: SODIUM CHLORIDE 1 GM TAB PO SCH ×2 (07:15→20:03)
[2017-11-05] MEDS: THIAMINE HCL 50 MG TAB PO SCH (07:15)
[2017-11-05] MEDS: POTASSIUM CHLORIDE 20 MEQ TABCR PO SCH (07:17)
[2017-11-05] MEDS: CEROVITE ADV FORMULA TAB PO SCH (07:19)
[2017-11-05 08:05] VITALS: BP 151/90; PULSE 69; TEMP 36.6; O2SAT 96
[2017-11-05 15:02] VITALS: BP 144/99; PULSE 69; TEMP 36.6; O2SAT 96
[2017-11-05] MEDS: TAMSULOSIN HCL 0.4 MG CAP PO SCH (20:04)
[2017-11-05 22:41] VITALS: BP 165/87; PULSE 65; TEMP 36.6; O2SAT 97
[2017-11-06] MEDS: ACETAMINOPHEN 325 MG TAB PO PRN ×2 (06:38→11:59)
[2017-11-06 07:19] VITALS: BP 146/83; PULSE 75; TEMP 36.8; O2SAT 96
[2017-11-06] MEDS: MAGNESIUM OXIDE 400 MG TAB PO SCH (08:09)
[2017-11-06] MEDS: CEROVITE ADV FORMULA TAB PO SCH (08:10)
[2017-11-06] MEDS: SODIUM CHLORIDE 1 GM TAB PO SCH (08:10)
[2017-11-06] MEDS: POTASSIUM CHLORIDE 20 MEQ TABCR PO SCH (08:10)
[2017-11-06] MEDS: THIAMINE HCL 50 MG TAB PO SCH (08:10)
--- NOTE | 2017-11-06 11:55 | Progress Note ---
Internal Med Progress Note Date of Service: Nov 05, 2017. Provider Documentation: late documentation pt seen on 11/05/17 approx 2 pm SUBJECTIVE: complains of feeling dizzy and lightheaded per nursing , pt been ambulating independently to bathroom pt able to be get OOB without any assistance , ambulated in hallway with walker , no loss of balance noted discussed with pt -with his improved functional status will not qualify for rehab recommend to return home with home health already has a walker at home counselling to quit drinking provided again -not interested to go to alcohol rehab OBJECTIVE: Vital Signs-as noted below Exam: General-chronically ill-appearing no apparent Eyes-sclera nonicteric ENT-moist oral Neck-neck supple Lungs-clear to auscultate no wheeze or rales Heart-regular S1-S2 Abdomen-soft Extremities-no lower extremity edema Neuro-no focal neurological Lab data as noted below. ASSESSMENT & PLAN: CHRONIC ALCOHOL ABUSE/WITHDRAWAL on Neurontin taper dose no sign of active withdrawal counselled for to quit drinking alcohol -as it can soon lead him to life threatening illness /permanent liver damage with multiorgan failure pt does not appear to be receptive does not want to discuss about alcohol rehab [place] POSSIBLY SECONDARY TO ALCOHOLISM/INTOXICATION improved functional status , able to ambulate independently with walker ( has one at home ) does not appear to be need in patient rehab pt is counselled to quit drinking alcohol and seek professional help for addiction -declined to go to drug and alcohol rehab plan to discharge home tomorrow will benefit with home health and home PT DVT PROPHYLAXIS SCD and teds Ambulate DISPOSITION expected to be discharged home tomorrow with home health /home PT Vital Signs: Date Time Temp Pulse Resp B/P (MAP) Pulse Ox O2 Delivery O2 Flow Rate FiO2 11/06/17 08:10 Room Air 11/06/17 07:19 36.8 75 18 146/83 (104) 96 Room Air 11/06/17 00:05 Room Air 11/05/17 22:41 36.6 65 18 165/87 (113) 97 Room Air 11/05/17 16:00 Room Air 11/05/17 15:02 36.6 69 18 144/99 (114) 96
[2017-11-06] MEDS ORDERED: FLM4 PO (11:58)
[2017-11-06] MEDS ORDERED: FLV1 PO (11:58)
[2017-11-06] MEDS ORDERED: MCRK20 PO (11:58)
[2017-11-06] MEDS ORDERED: THM50 PO (11:58)
[2017-11-06] MEDS ORDERED: SDMC1 PO (11:58)
[2017-11-06] MEDS ORDERED: MGNO400 PO (11:58)
[2017-11-06] MEDS ORDERED: TNR25 PO (11:58)
--- NOTE | 2017-11-06 12:01 | Discharge Instructions ---
Discharge Instructions Date of Service Nov 06, 2017. Admission Reason for Admission: Alcohol Withdrawal, Frequent Falls Discharge Discharge Diagnosis / Problem: ALCHOHOL INTOXICATION /WITHDRAWL Discharge Goals Goal(s): Increase independence, Improve disease control, Diagnostic testing, Therapeutic intervention Activity Recommendations Activity Limitations: as noted below ( TOLERATED ) . Instructions / Follow-Up Instructions / Follow-Up HOSPITAL FOLLOW UP WITH FAMILY PHYSICIAN IN A WEEK NEED TO QUIT DRINKING ALCOHOL -WILL LEAD TO PERMANENT LIFE THREATENING HEALTH DAMAGE STRONGLY RECOMMEND TO FOLLOW UP WITH OUT PATIENT ALCOHOL COUNSELLING .ALCOHOL REHAB PLEASE USE WALKER TO ASSIST IN BALANCE AND PREVENT FALL Current Hospital Diet Patient's current hospital diet: Regular Diet Discharge Diet Recommended Diet: Regular Diet Pending Studies Studies pending at discharge: no Medical Emergencies . Who to Call and When: Medical Emergencies: If at any time you feel your situation is an emergency, please call 911 immediately. . Non-Emergent Contact Non-Emergency issues call your: Primary Care Provider . . "Provider Documentation" section prepared by Neisha Norman. .
[2017-11-06 14:15] VITALS: BP 146/83; PULSE 75; TEMP 36.8; O2SAT 96
--- NOTE | 2017-11-06 14:59 | Discharge Summary ---
Discharge Summary Date of Service Nov 06, 2017. Discharge Summary Admission Date: Nov 01, 2017 at 01:29 Discharge Date: Nov 06, 2017 Discharge Disposition: Home Principal Diagnosis: ALCOHOL INTOXICATION /WITHDRAWAL Medication Reconciliation New Medications: Atenolol (Atenolol) 25 Mg Tab 25 MG PO QAM for 30 Days, #30 TAB Folic Acid (Folic Acid) 1 Mg Tab 1 MG PO QAM for 30 Days, #30 TAB Magnesium Oxide (Magnesium-Oxide) 400 Mg Tab 400 MG PO BID for 30 Days, #60 TAB Potassium Chloride (Klor-Con M20) 20 Meq Tabcr 20 MEQ PO QAM for 30 Days, #20 TABS Sodium Chloride (Sodium Chloride) 1 Gm Tab 1 GM PO BID for 30 Days, #30 TAB Tamsulosin HCl (Tamsulosin HCl) 0.4 Mg Cap 0.4 MG PO HS for 30 Days, #30 CAP Thiamine HCl (Vitamin B-1) 50 Mg Tab 50 MG PO QAM for 100 Days, #60 TAB Hospital Course CHRONIC ALCOHOL ABUSE/WITHDRAWAL on Neurontin taper dose no sign of active withdrawal counselled for to quit drinking alcohol -as it can soon lead him to life threatening illness /permanent liver damage with multiorgan failure pt does not appear to be receptive does not want to discuss about alcohol rehab [place] POSSIBLY SECONDARY TO ALCOHOLISM/INTOXICATION improved functional status , able to ambulate independently with walker ( has one at home ) does not appear to be need in patient rehab pt is counselled to quit drinking alcohol and seek professional help for addiction -declined to go to drug and alcohol rehab plan to discharge home tomorrow will benefit with home health and home PT DVT PROPHYLAXIS SCD and teds Ambulate DISPOSITION expected to be discharged home tomorrow with home health /home PT Total time spent on discharge = 35 MINS This includes examination of the patient, discharge planning, medication reconciliation, and communication with other providers. Discharge Instructions Discharge Instructions Date of Service Nov 06, 2017. Admission Reason for Admission: Alcohol Withdrawal, Frequent Falls Discharge Discharge Diagnosis / Problem: ALCOHOL INTOXICATION /WITHDRAWAL Discharge Goals Goal(s): Increase independence, Improve disease control, Diagnostic testing, Therapeutic intervention Activity Recommendations Activity Limitations: as noted below ( TOLERATED ) . Instructions / Follow-Up Instructions / Follow-Up HOSPITAL FOLLOW UP WITH FAMILY PHYSICIAN IN A WEEK NEED TO QUIT DRINKING ALCOHOL -WILL LEAD TO PERMANENT LIFE THREATENING HEALTH DAMAGE STRONGLY RECOMMEND TO FOLLOW UP WITH OUT PATIENT ALCOHOL COUNSELLING .ALCOHOL REHAB PLEASE USE WALKER TO ASSIST IN BALANCE AND PREVENT FALL Current Hospital Diet Patient's current hospital diet: Regular Diet Discharge Diet Recommended Diet: Regular Diet Pending Studies Studies pending at discharge: no Medical Emergencies . Who to Call and When: Medical Emergencies: If at any time you feel your situation is an emergency, please call 911 immediately. . Non-Emergent Contact Non-Emergency issues call your: Primary Care Provider . . "Provider Documentation" section prepared by Neisha Norman. .
== END 2017-11-06 15:25 | disposition home or self-care (01) | DRG 897 ==
LOC: EDBD 20:36 → C.EDB 20:37 → C.2T 11-01 01:29 → ENRESERV 11-01 02:07 → C.MS4W 11-02 20:17
PROVIDERS: ADMIT Internal Medicine; ATTEND Hospitalist
DX: F10.239 Alcohol dependence with withdrawal, unspecified (principal); R29.6 Repeated falls; I10 Essential (primary) hypertension; Z87.891 Personal history of nicotine dependence; Z88.0 Allergy status to penicillin; Z91.81 History of falling

== ENCOUNTER 2017-11-21 09:32 | Observation (INO) | payer OTHER ==
[~2017-11-21] VITALS: Ht 180.3 cm; Wt 61.5 kg
[~2017-11-21 09:32] MED LIST changes: -ATEN25TA PO; +MCRK20 PO; +MGNO400 PO; +TNR25 PO
[2017-11-21] MEDS ORDERED: CLONIDINE HCL 0.3 MG/24 HR TRANSDERM SYS TD STA (10:03)
[2017-11-21] MEDS ORDERED: SODIUM CHLORIDE 0.9% 1000ML 1,000 ML IV STA (10:03)
[2017-11-21] MEDS ORDERED: LORAZEPAM 2 MG/ML 1 ML VIAL IV STA (10:03)
--- NOTE | 2017-11-21 10:13 | EMERGENCY ROOM VISIT NOTE ---
History Report prepared by Renetta: Bryson Blanchard Under the Supervision of: Dr. Junaid Dallas M.D. First contact with patient: 09:49 Chief Complaint: DIZZY Stated Complaint: DIZZY Nursing Triage Summary: pt presents to room a10 via bls from home. pt reports since this am he has been dizzy and fell at home. pt reports similar episode of dizziness approx 3 weeks ago. pt denies any pain. pt reports "i did not injure anything though." History of Present Illness The patient is a 52 year old male who presents to the Emergency Room with complaints of gradually worsening dizziness that began this morning. He states that he felt fine when he woke up this morning, and then started to develop nausea and dizziness. He also complains of feeling short of breath. The patient does note some numbness/tingling in his feet. He denies any chest or abdominal pain. The patient mentioned that he did feel like he was going to collapse this morning, but did not fall or hit his head. The patient was in the emergency Department 3 weeks ago for similar symptoms. Source of History: patient Onset: This morning Position: head Quality: other (Dizziness) Timing: worsening Associated Symptoms: + SOB, No chest pain, No abdominal pain Review of Systems See HPI for pertinent positives & negatives. A total of 10 systems reviewed and were otherwise negative. Past Medical & Surgical Medical Problems: (1) Alcohol withdrawal (2) Alcoholism (3) Ambulatory dysfunction (4) Delirium tremens (5) Dysphagia (6) Frequent falls (7) Hypertension Social History Problems: (1) Alcohol abuse Family History Hypertension Social History Smoking Status: Never Smoker Alcohol Use: heavy Drug Use: none Marital Status: single Housing Status: other Occupation Status: unemployed Current/Historical Medications Scheduled Atenolol (Atenolol), 25 MG PO QAM Folic Acid (Folic Acid), 1 MG PO QAM Magnesium Oxide (Magnesium-Oxide), 400 MG PO BID Potassium Chloride (Klor-Con M20), 20 MEQ PO QAM Sodium Chloride (Sodium Chloride), 1 GM PO BID Tamsulosin HCl (Tamsulosin HCl), 0.4 MG PO HS Thiamine HCl (Vitamin B-1), 50 MG PO QAM Allergies Coded Allergies: Penicillins (Verified Adverse Reaction, Mild, TIRED, 11/21/17) Physical Exam Vital Signs Date Time Temp Pulse Resp B/P (MAP) Pulse Ox O2 Delivery O2 Flow Rate FiO2 11/21/17 11:24 86 20 185/102 98 Room Air 11/21/17 10:56 91 20 190/97 98 Room Air 11/21/17 09:54 75 176/102 65 167/100 85 161/102 11/21/17 09:44 95 Room Air 11/21/17 09:42 80 11/21/17 09:40 36.7 68 18 187/92 98 Room Air Physical Exam GENERAL: Awake, alert, well-appearing, in no acute distress. There is a fruity smell to his breath. HENT: Normocephalic, atraumatic. Oropharynx unremarkable. EYES: Normal conjunctiva. Sclera non-icteric. NECK: Supple. No nuchal rigidity. FROM. No JVD. RESPIRATORY: Clear to auscultation. He is actively hyperventilating in the room. CARDIAC: Regular rate, normal rhythm. Extremities warm and well perfused. Pulses equal. ABDOMEN: Soft, non-distended. No tenderness to palpation. No rebound or guarding. No masses. RECTAL: Deferred. MUSCULOSKELETAL: Chest examination reveals no tenderness. The back is symmetrical on inspection without obvious abnormality. There is no CVA tenderness to palpation. No joint edema. LOWER EXTREMITIES: Calves are equal size bilaterally and non-tender. No edema. No discoloration. NEURO: Normal sensorium. No sensory or motor deficits noted. SKIN: No rash or jaundice noted. Medical Decision & Procedures ER Provider Diagnostic Interpretation: Radiology results as stated below per my review and radiologist interpretation: CHEST ONE VIEW PORTABLE HISTORY: 52 years-old Male Pt c/o SOB acute shortness of breath COMPARISON: Chest radiograph 10/31/2017 TECHNIQUE: Portable AP view of the chest FINDINGS: Cardiomediastinal and hilar silhouettes are within normal limits. No pneumothorax, pleural effusion, focal airspace consolidation or overt pulmonary edema. Linear subsegmental atelectasis/scarring of the left lung base. Bones appear grossly intact. Healed remote left-sided rib fractures redemonstrated. IMPRESSION: No acute process. The above report was generated using voice recognition software. It may contain grammatical, syntax or spelling errors. Electronically signed by: Mark Hernandez M.D. 11/21/2017 10:43 AM Dictated Date/Time: 11/21/2017 10:[address]AST CT DOSE: 729.78 mGycm HISTORY: Pt c/o dizziness TECHNIQUE: Multiaxial CT images of the head were performed without the use of intravenous contrast. Automated exposure control was utilized for this study. A dose lowering technique was utilized adhering to the principles of ALARA. Comparison: Head CT 10/31/2017. Findings: The paranasal sinuses and mastoid air cells are clear. The calvarium and skull base are intact. There is no mass, hematoma, midline shift, acute infarct. White matter hypodensity is nonspecific but suggestive of microvascular ischemic change. The ventricles and sulci demonstrate mild age-related involutional changes. 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 This remains unchanged. Impression: No significant change compared to the prior study. No acute intracranial abnormality. Electronically signed by: Jigar Cassidy M.D. 11/21/2017 10:50 AM Dictated Date/Time: 11/21/2017 10:47 AM Laboratory Results 11/21/17 10:21 Red Blood Count 4.45, Mean Corpuscular Volume 90.3, Mean Corpuscular Hemoglobin 31.5, Mean Corpuscular Hemoglobin Concent 34.8, Mean Platelet Volume 8.6, Neutrophils (%) (Auto) 84.1, Lymphocytes (%) (Auto) 10.3, Monocytes (%) (Auto) 4.8, Eosinophils (%) (Auto) 0.1, Basophils (%) (Auto) 0.5, Neutrophils # (Auto) 7.67, Lymphocytes # (Auto) 0.94, Monocytes # (Auto) 0.44, Eosinophils # (Auto) 0.01, Basophils # (Auto) 0.05 11/21/17 10:21 Test 11/21/17 10:20 11/21/17 10:21 11/21/17 10:56 Arterial Blood pH 7.47 (7.35-7.45) Arterial Blood Partial Pressure CO2 29 mmHg (35-46) Arterial Blood Partial Pressure O2 92 mm/Hg (80-95) Arterial Blood HCO3 21 mmol/L (19-24) Arterial Blood Oxygen Saturation 97.1 % (90-95) Arterial Blood Base Excess -2.1 mEq/L (-9-1.8) Arterial Blood Gas Delivery ROOM AIR Raymond Test POS (POS) White Blood Count 9.13 K/uL (4.8-10.8) Red Blood Count 4.45 M/uL (4.7-6.1) Hemoglobin 14.0 g/dL (14.0-18.0) Hematocrit 40.2 % (42-52) Mean Corpuscular Volume 90.3 fL (80-100) Mean Corpuscular Hemoglobin 31.5 pg (25-34) Mean Corpuscular Hemoglobin Concent 34.8 g/dl (32-36) Platelet Count 213 K/uL (130-400) Mean Platelet Volume 8.6 fL (7.4-10.4) Neutrophils (%) (Auto) 84.1 % Lymphocytes (%) (Auto) 10.3 % Monocytes (%) (Auto) 4.8 % Eosinophils (%) (Auto) 0.1 % Basophils (%) (Auto) 0.5 % Neutrophils # (Auto) 7.67 K/uL (1.4-6.5) Lymphocytes # (Auto) 0.94 K/uL (1.2-3.4) Monocytes # (Auto) 0.44 K/uL (0.11-0.59) Eosinophils # (Auto) 0.01 K/uL (0-0.5) Basophils # (Auto) 0.05 K/uL (0-0.2) RDW Standard Deviation 51.6 fL (36.4-46.3) RDW Coefficient of Variation 15.6 % (11.5-14.5) Immature Granulocyte % (Auto) 0.2 % Immature Granulocyte # (Auto) 0.02 K/uL (0.00-0.02) Anion Gap 17.0 mmol/L (3-11) Est Creatinine Clear Calc Drug Dose 114.7 ml/min Estimated GFR () 128.7 Estimated GFR (Non- 111.1 BUN/Creatinine Ratio 11.0 (10-20) Calcium Level 8.8 mg/dl (8.5-10.1) Total Bilirubin 0.7 mg/dl (0.2-1) Direct Bilirubin 0.2 mg/dl (0-0.2) Aspartate Amino Transf (AST/SGOT) 92 U/L (15-37) Alanine Aminotransferase (ALT/SGPT) 37 U/L (12-78) Alkaline Phosphatase 121 U/L (45-117) Total Protein 8.3 gm/dl (6.4-8.2) Albumin 4.0 gm/dl (3.4-5.0) Beta-Hydroxybutyric Acid 55.49 mg/dL (0.2-2.81) Thyroid Stimulating Hormone (TSH) 0.686 uIu/ml (0.300-4.500) Ethyl Alcohol mg/dL 130.2 mg/dl (0-3) Bedside Glucose 90 mg/dl (70-99) Labs reviewed by ED physician. Medications Administered Medications (Trade) Dose Ordered Sig/Jaylene Route Start Time Stop Time Status Last Admin Dose Admin Multivitamins 10 ml/Thiamine HCl 100 mg/Folic Acid 1 mg/Sodium Chloride 1,011.2 ml @ 500 mls/ hr Q2H2M ONCE IV 11/21/17 10:15 11/21/17 12:16 DC 11/21/17 10:33 500 MLS/HR Clonidine HCl (Afkoexvf-Yeh-1 0.3mg/24hr Patch) 1 patch NOW STAT TD 11/21/17 10:03 11/21/17 10:07 DC 11/21/17 10:33 1 PATCH Lorazepam (Ativan Inj) 1 mg NOW STAT IV 11/21/17 10:03 11/21/17 10:07 DC 11/21/17 10:26 1 MG Sodium Chloride 1,000 ml @ 999 mls/hr Q1H1M STAT IV 11/21/17 10:03 11/21/17 11:03 DC 11/21/17 10:26 999 MLS/HR ECG Per My Interpretation Indication: weakness, other (Dizziness) Rate (beats per minute): 66 Rhythm: normal sinus Findings: other (Old septal infarct, no SOPHIA, no STD) ED Course 0957: Past medical records reviewed. The patient was evaluated in room A10. A complete history and physical examination was performed. 1003: ordered Sodium Chloride 1000 mL @ 999 mL/hr IV, Lorazepam 1 mg IV, Clonidine 1 patch. 1015: Ordered Banana Bag IV. 1111: I discussed the case with Hortencia Gonzalez [facility] Hospitalist. She will evaluate the patient for further treatment. Medical Decision Differential diagnosis: Etiologies such as benign positional vertigo, dehydration, hypovolemia, anemia, tumor, infection, hypoglycemia, electrolyte abnormalities, cardiac sources, intracerebral event, toxicologic, neurologic, as well as others were entertained. This is a 52-year-old male who presents emergency department complaining of hyperventilation, tachycardia and hypertension. Patient has a long history of alcohol abuse. I suspect he is in alcohol withdrawal. IV was established, the patient was given a banana bag as well as normal saline bolus. His blood sugar was found to be in the 60s therefore he was given crackers and juice in the emergency department. He was also given Ativan along with a clonidine patch. Based on these findings I felt that the patient should be admitted for alcohol withdrawal. I did discuss the case with the hospitalist service who agreed to admit the patient. Patient was in agreement with the treatment plan. Medication Reconcilliation Current Medication List: was personally reviewed by me Blood Pressure Screening Patient's blood pressure: Elevated blood pressure Referred to [facility] Hospitalist service Consults Time Called: 1101 Consulting Physician: Hortencia Broussard PA-C Returned Call: 1111 I discussed the case with Hortencia Broussard PA-C. She will evaluate the patient for further treatment. Impression Primary Impression: Alcohol withdrawal Critical Care I have personally spent greater than 35 minutes of critical care time in the direct management of this patient. This includes bedside care, interpretation of diagnostic studies, and testing, discussion with consultants, patient, and family members, and other required patient management activities. This 35 minutes is in excess of all separately billable procedures. Scribe Attestation The scribe's documentation has been prepared under my direction and personally reviewed by me in its entirety. I confirm that the note above accurately reflects all work, treatment, procedures, and medical decision making performed by me. Departure Information Dispostion Being Evaluated By Hospitalist Referrals No Doctor, Assigned (PCP) Patient Instructions My [facility] Problem Qualifiers Primary Impression: Alcohol withdrawal Complication of substance-induced condition: uncomplicated Qualified Codes: F10.230 - Alcohol dependence with withdrawal, uncomplicated
[2017-11-21] MEDS ORDERED: MULTI-VITAMIN INFUSION INJ 10 ML, THIAMINE HCL INJ 100 MG, FoLIC ACID INJ 1 MG in SODIU... IV ONE ×2 (10:15→11:47)
[2017-11-21 10:36] LABS: BASO % 0.5 %; BASO ABS # 0.05 K/uL (0-0.2); EOS % 0.1 %; EOS ABS # 0.01 K/uL (0-0.5); HEMATOCRIT 40.2 % (42-52); IG# 0.02 K/uL (0.00-0.02); LYMPH % 10.3 %; LYMPH ABS # 0.94 K/uL (1.2-3.4); MEAN CELL VOLUME 90.3 fL (80-100); MEAN CORPUSCULAR HEMOGLOBIN 31.5 pg (25-34); MEAN CORPUSCULAR HGB CONC 34.8 g/dl (32-36); MEAN PLATELET VOLUME 8.6 fL (7.4-10.4); MONO % 4.8 %; MONO ABS # 0.44 K/uL (0.11-0.59); NEUT % 84.1 %; NEUT ABS # 7.67 K/uL (1.4-6.5); PLATELET COUNT 213 K/uL (130-400); RED CELL DISTRIBUTION WIDTH CV 15.6 % (11.5-14.5); RED CELL DISTRIBUTION WIDTH SD 51.6 fL (36.4-46.3); WHITE BLOOD COUNT 9.13 K/uL (4.8-10.8)
--- NOTE | 2017-11-21 10:44 | DIAGNOSTIC IMAGING REPORT ---
CHEST ONE VIEW PORTABLE HISTORY: 52 years-old Male Pt c/o SOB acute shortness of breath COMPARISON: Chest radiograph 10/31/2017 TECHNIQUE: Portable AP view of the chest FINDINGS: Cardiomediastinal and hilar silhouettes are within normal limits. No pneumothorax, pleural effusion, focal airspace consolidation or overt pulmonary edema. Linear subsegmental atelectasis/scarring of the left lung base. Bones appear grossly intact. Healed remote left-sided rib fractures redemonstrated. IMPRESSION: No acute process. The above report was generated using voice recognition software. It may contain grammatical, syntax or spelling errors. Electronically signed by: Mark Hernandez M.D. 11/21/2017 10:43 AM Dictated Date/Time: 11/21/2017 10:41 AM
--- NOTE | 2017-11-21 10:51 | DIAGNOSTIC IMAGING REPORT ---
HEAD CT NONCONTRAST CT DOSE: 729.78 mGycm HISTORY: Pt c/o dizziness TECHNIQUE: Multiaxial CT images of the head were performed without the use of intravenous contrast. Automated exposure control was utilized for this study. A dose lowering technique was utilized adhering to the principles of ALARA. Comparison: Head CT 10/31/2017. Findings: The paranasal sinuses and mastoid air cells are clear. The calvarium and skull base are intact. There is no mass, hematoma, midline shift, acute infarct. White matter hypodensity is nonspecific but suggestive of microvascular ischemic change. The ventricles and sulci demonstrate mild age-related involutional changes. 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 This remains unchanged. Impression: No significant change compared to the prior study. No acute intracranial abnormality. Electronically signed by: Jigar Cassidy M.D. 11/21/2017 10:50 AM Dictated Date/Time: 11/21/2017 10:47 AM
[2017-11-21 10:55] LABS: CALCIUM 8.8 mg/dl (8.5-10.1); CREATININE 0.65 mg/dl (0.60-1.40); POTASSIUM 4.1 mmol/L (3.5-5.1)
[2017-11-21 11:06] LABS: TOTAL PROTEIN 8.3 gm/dl (6.4-8.2)
--- NOTE | 2017-11-21 11:59 | History and Physical ---
History & Physical Date & Time of Service: November 21, 2017 at 11:59 Chief Complaint: DIZZY Primary Care Physician: No Doctor, Assigned History of Present Illness Source: patient, clinic records, hospital records This is a 52-year-old man with PMH of alcohol abuse who presents with complaints of dizziness and generalized weakness beginning this morning. Patient has been admitted multiple times for alcohol withdrawal in the past, most recently from November 01-. Since last being discharged, patient has resumed drinking 6-8 beers daily. Last drink was around 9pm last night when he ran out of beer at his apartment. Woke up this AM feeling dizzy and generally weak. Tried to ambulate with walker in apartment but lost his balance and fell forward onto his knees. Denies head trauma or LOC. Was also experiencing nausea and SOB. Was brought in to ED by EMS for further evaluation. In the ED, was found to be hypertensive at 190/97 and hypoglycemic at 59. Etoh level of 130. Was given ativan, a banana bag and a clonidine patch. States that he still feels shaky and weak but dizziness and SOB are improving. Denies any near-syncope, seizures, confusion, chest pain, palpitations, abdominal pain, vomiting, bowel or bladder changes or LE swelling. Has not filled any prescriptions provided at discharge 3 weeks ago (atenolol, folic acid, multivitamin, B1, Mag, NaCl) due to lack of funds. Does not have interest in alcohol rehab. States that he has tried it 3 times in the past and it hasn't worked. Past Medical/Surgical History Medical Problems: (1) Alcoholism Status: Chronic (2) Ambulatory dysfunction Status: Chronic (3) Delirium tremens Status: Resolved (4) Dysphagia Permanent Comment: h/o esophageal stricture s/p dilation in past Status: Chronic (5) Frequent falls Status: Chronic (6) Hypertension Status: Chronic Social History Problems: (1) Alcohol abuse Status: Chronic Family History Hypertension Social History Smoking Status: Never Smoker Alcohol Use: heavy (6-8 beers daily ) Drug Use: none Marital Status: single Housing status: lives alone, other Occupational Status: unemployed Immunizations History of Influenza Vaccine: Unknown History of Tetanus Vaccine?: Unknown History of Pneumococcal: Unknown History of Hepatitis B Vaccine: Unknown Allergies Coded Allergies: Penicillins (Verified Adverse Reaction, Mild, TIRED, 11/21/17) Home Medications Scheduled Atenolol (Atenolol), 25 MG PO QAM Folic Acid (Folic Acid), 1 MG PO QAM Magnesium Oxide (Magnesium-Oxide), 400 MG PO BID Potassium Chloride (Klor-Con M20), 20 MEQ PO QAM Sodium Chloride (Sodium Chloride), 1 GM PO BID Tamsulosin HCl (Tamsulosin HCl), 0.4 MG PO HS Thiamine HCl (Vitamin B-1), 50 MG PO QAM Review of Systems Ten systems reviewed and negative except as noted in the HPI. Physical Exam Vital Signs Date Time Temp Pulse Resp B/P (MAP) Pulse Ox O2 Delivery O2 Flow Rate FiO2 11/21/17 11:24 86 20 185/102 98 Room Air 11/21/17 10:56 91 20 190/97 98 Room Air 11/21/17 09:54 75 176/102 65 167/100 85 161/102 11/21/17 09:44 95 Room Air 11/21/17 09:42 80 11/21/17 09:40 36.7 68 18 187/92 98 Room Air General Appearance: WD/WN, no apparent distress, + pertinent finding ( Chronically ill appearing. Eating crackers, watching TV. ) Head: normocephalic, atraumatic Eyes: normal inspection, PERRL, sclerae normal ENT: normal ENT inspection, hearing grossly normal, pharynx normal (dry mucous membranes ) Neck: supple, thyroid normal, trachea midline Respiratory/Chest: chest non-tender, lungs clear, normal breath sounds, no respiratory distress, no accessory muscle use Cardiovascular: regular rate, rhythm, no murmur, normal peripheral pulses Abdomen/GI: non tender, soft, no organomegaly Extremities/Musculoskelatal: normal inspection, no calf tenderness, no pedal edema, + pertinent finding (bilateral tremors ) Neurologic/Psych: no motor/sensory deficits, alert, normal mood/affect, oriented x 3 Skin: normal color, warm/dry, no rash Diagnostics Laboratory Results Results Past 24 Hours Test 11/21/17 10:20 11/21/17 10:21 11/21/17 11:52 Range/Units Arterial Blood pH 7.47 7.35-7.45 Arterial Blood Partial Pressure CO2 29 35-46 mmHg Arterial Blood Partial Pressure O2 92 80-95 mm/Hg Arterial Blood HCO3 21 19-24 mmol/L Arterial Blood Oxygen Saturation 97.1 90-95 % Arterial Blood Base Excess -2.1 -9-1.8 mEq/L Arterial Blood Gas Delivery ROOM AIR Raymond Test POS POS White Blood Count 9.13 4.8-10.8 K/uL Red Blood Count 4.45 4.7-6.1 M/uL Hemoglobin 14.0 14.0-18.0 g/dL Hematocrit 40.2 42-52 % Mean Corpuscular Volume 90.3 80-100 fL Mean Corpuscular Hemoglobin 31.5 25-34 pg Mean Corpuscular Hemoglobin Concent 34.8 32-36 g/dl Platelet Count 213 130-400 K/uL Mean Platelet Volume 8.6 7.4-10.4 fL Neutrophils (%) (Auto) 84.1 % Lymphocytes (%) (Auto) 10.3 % Monocytes (%) (Auto) 4.8 % Eosinophils (%) (Auto) 0.1 % Basophils (%) (Auto) 0.5 % Neutrophils # (Auto) 7.67 1.4-6.5 K/uL Lymphocytes # (Auto) 0.94 1.2-3.4 K/uL Monocytes # (Auto) 0.44 0.11-0.59 K/uL Eosinophils # (Auto) 0.01 0-0.5 K/uL Basophils # (Auto) 0.05 0-0.2 K/uL RDW Standard Deviation 51.6 36.4-46.3 fL RDW Coefficient of Variation 15.6 11.5-14.5 % Immature Granulocyte % (Auto) 0.2 % Immature Granulocyte # (Auto) 0.02 0.00-0.02 K/uL Sodium Level 135 136-145 mmol/L Potassium Level 4.1 3.5-5.1 mmol/L Chloride Level 97 98-107 mmol/L Carbon Dioxide Level 21 21-32 mmol/L Anion Gap 17.0 3-11 mmol/L Blood Urea Nitrogen 7 7-18 mg/dl Creatinine 0.65 0.60-1.40 mg/dl Est Creatinine Clear Calc Drug Dose 114.7 ml/min Estimated GFR () 128.7 Estimated GFR (Non- 111.1 BUN/Creatinine Ratio 11.0 10-20 Random Glucose 59 70-99 mg/dl Calcium Level 8.8 8.5-10.1 mg/dl Total Bilirubin 0.7 0.2-1 mg/dl Direct Bilirubin 0.2 0-0.2 mg/dl Aspartate Amino Transf (AST/SGOT) 92 15-37 U/L Alanine Aminotransferase (ALT/SGPT) 37 12-78 U/L Alkaline Phosphatase 121 45-117 U/L Total Protein 8.3 6.4-8.2 gm/dl Albumin 4.0 3.4-5.0 gm/dl Beta-Hydroxybutyric Acid 55.49 0.2-2.81 mg/dL Thyroid Stimulating Hormone (TSH) 0.686 0.300-4.500 uIu/ml Ethyl Alcohol mg/dL 130.2 0-3 mg/dl Diagnostic Radiology Head CT: Impression: No significant change compared to the prior study. No acute intracranial abnormality. CXR: IMPRESSION: No acute process. EKG Normal sinus rhythm at 66 bpm. Old septal infarct. No change from prior EKG Impression Assessment and Plan This is a 52-year-old man with PMH of alcohol abuse who presents with complaints of dizziness and generalized weakness beginning this morning. Alcohol Intoxication: -In setting of chronic alcohol abuse -Etoh level initially 130 -Ativan, banana bag, clonidine patch given in ED -Alcohol withdrawal protocol: Gabapentin, Ativan PRN -Continue thiamine, folic acid, multivitamin -Tox screen negative -Monitor on telemetry Metabolic acidosis: -2/2 chronic alcohol use -Anion gap of 17, urine ketones 3+ -Hypoglycemic at 60, improved to 90 with food -Expect gap to close with proper nutrition, hydration -Monitor Hypertension: -2/2 alcohol withdrawal, non-compliance with home atenolol -Clonidine patch used in ED -Continue home dose atenolol, PRN clonidine Generalized weakness: -Chronic, 2/2 alcohol use -Ambulatory dysfunction known, uses walker in apartment -Normal TSH,check B12 level in AM -PT/OT eval Chronic hyponatremia: -Cont NSS IV fluids, home dose NaCl tabs Chronic hypomagnesemia: -Cont mag supplement DVT Ppx: SCDs Code status: FULL PCP: None assigned Dispo: Observation telemetry. Discharge planning ordered. Patient seen in collaboration with Dr. Norman. Please see addendum. ATTENDING ADDENDUM : Patient seen and examined care coordinated with Hortencia Gonzalez PA-C This is a 52-year-old male with history of chronic alcohol/alcohol intoxication secondary to current admission due to alcohol abuse Presented to ER with complaint of dizzy spells and lightheadedness, found to be an intoxicated state with elevated blood alcohol level of 130 will be admitted to telemetry, started with gabapentin and Ativan as per alcohol withdrawal protocol-AW SS Metabolic acidosis secondary to alcohol abuse Ordered for IV fluids Repeat PRP Social service consulted for discharge planning Patient refused alcohol rehab/skilled rehab multiple times in the past PT OT eval requested Neisha Norman MD Resuscitation Status VTE Prophylaxis Will order VTE Prophylaxis: Yes
[2017-11-21] MEDS ORDERED: IV FLUIDS COMPLETED PRN (12:00)
[2017-11-21] MEDS ORDERED: GABAPENTIN 600 MG TAB PO SCH (12:00)
[2017-11-21] MEDS: THIAMINE HCL 100 MG TAB PO SCH (13:10)
[2017-11-21] MEDS: D5W AND NSS 1,000 ML IV SCH ×2 (13:11→23:01)
[2017-11-21 13:25] VITALS: BP 169/88; PULSE 93; TEMP 37.5; O2SAT 98; Ht 180.3 cm; Wt 61.5 kg
[2017-11-21] MEDS ORDERED: GABAPENTIN 1200MG LOADING DOSE PO ONE (14:00)
[2017-11-21 15:14] VITALS: BP 160/92; PULSE 90; TEMP 37.7; O2SAT 91
[2017-11-21 18:46] VITALS: BP 196/112; PULSE 71; TEMP 36.6; O2SAT 98
[2017-11-21] MEDS: CLONIDINE HCL 0.1 MG TAB PO PRN (18:46)
[2017-11-21] MEDS: ACETAMINOPHEN 325 MG TAB PO PRN (21:24)
[2017-11-21] MEDS: MAGNESIUM OXIDE 400 MG TAB PO SCH (21:25)
[2017-11-21] MEDS: TAMSULOSIN HCL 0.4 MG CAP PO SCH (21:25)
[2017-11-21] MEDS: GABAPENTIN 600MG Q6H DOSE PO SCH (21:25)
[2017-11-21 21:35] VITALS: BP 158/87
[2017-11-22] VITALS (7 sets, daily range): BP systolic 126–152; BP diastolic 50–94; PULSE 71–79; TEMP 36.5–37.1; O2SAT 94–97
[2017-11-22] MEDS: GABAPENTIN 600MG Q6H DOSE PO SCH (02:16)
[2017-11-22 06:18] LABS: HEMOGLOBIN 13.9 g/dL (14.0-18.0); MEAN CELL VOLUME 90.3 fL (80-100); MEAN CORPUSCULAR HEMOGLOBIN 32.2 pg (25-34); MEAN CORPUSCULAR HGB CONC 35.6 g/dl (32-36); MEAN PLATELET VOLUME 9.5 fL (7.4-10.4); PLATELET COUNT 141 K/uL (130-400); RED CELL DISTRIBUTION WIDTH CV 15.4 % (11.5-14.5); RED CELL DISTRIBUTION WIDTH SD 51.5 fL (36.4-46.3); WHITE BLOOD COUNT 9.96 K/uL (4.8-10.8)
[2017-11-22] MEDS: ACETAMINOPHEN 325 MG TAB PO PRN ×3 (06:19→18:44)
[2017-11-22 06:35] LABS: CALCIUM 8.5 mg/dl (8.5-10.1); CREATININE 0.6 mg/dl (0.60-1.40); POTASSIUM 3.6 mmol/L (3.5-5.1)
[2017-11-22] MEDS: MAGNESIUM OXIDE 400 MG TAB PO SCH ×2 (07:49→21:14)
[2017-11-22] MEDS: THIAMINE HCL 100 MG TAB PO SCH (07:49)
[2017-11-22] MEDS: MULTIVITAMIN TAB PO SCH (07:49)
[2017-11-22] MEDS: POTASSIUM CHLORIDE 20 MEQ TABCR PO SCH (07:50)
[2017-11-22] MEDS: SODIUM CHLORIDE 1 GM TAB PO SCH ×2 (07:50→21:14)
[2017-11-22] MEDS: ONDANSETRON INJ 2 MG/ML 2 ML VIAL IV PRN (09:17)
[2017-11-22] MEDS: D5W AND NSS 1,000 ML IV SCH ×2 (09:19→19:27)
[2017-11-22] MEDS ORDERED: LORAZEPAM 0.5 MG TAB PO STA (12:56)
--- NOTE | 2017-11-22 13:07 | Progress Note ---
Subjective Date of Service: November 22, 2017. Subjective Pt evaluation today including: conversation w/ patient, physical exam, lab review, review of studies, review of inpatient medication list Saw/examined the patient in room 287 He's doing better, improved nausea/vomiting mild anxiety, no agitation, no tremulousness Eating well States he has issues with ambulation Problem List Medical Problems: (1) Abnormal ECG Status: Acute (2) Alcohol dependence Status: Acute (3) Alcohol intoxication Status: Acute (4) Alcohol withdrawal Status: Acute (5) Alcohol withdrawal Status: Acute (6) Alcohol withdrawal Status: Acute (7) Alcohol withdrawal Status: Acute (8) Alcoholic ketoacidosis Status: Acute (9) Anemia Status: Acute (10) Ataxia Status: Acute (11) Ataxia Status: Acute (12) Closed left clavicular fracture Status: Acute (13) Dehydration Status: Acute (14) Elbow fracture, left Status: Acute (15) Fall as cause of accidental injury in residential institution as place of occurrence Status: Acute (16) Generalized weakness Status: Acute (17) Hip pain, right Status: Acute (18) Homeless Status: Acute (19) Hypokalemia Status: Acute (20) Hypophosphatemia Status: Acute (21) Hypotension Status: Acute (22) Intertrochanteric fracture of right hip Status: Acute (23) Lactic acidosis Status: Acute (24) Malnutrition Status: Acute (25) Pneumonia Status: Acute (26) Seizure Status: Acute (27) Syncope Status: Acute (28) Weakness Status: Acute Review of Systems Constitutional: + weakness, No fever, No chills Respiratory: No shortness of breath Cardiac: No chest pain Abdomen: No pain, No nausea, No vomiting, No diarrhea Neurologic: + weakness, + numbness/tingling, + balance problems, No vertigo Psychiatric: No depression symptoms, No anxiety, No insomnia Medications Current Inpatient Medications Medications (Trade) Dose Ordered Sig/Jaylene Route Start Time Stop Time Status Last Admin Dose Admin Acetaminophen (Tylenol Tab) 650 mg Q4H PRN PO 11/21/17 12:00 12/21/17 11:59 11/22/17 11:02 650 MG Ondansetron HCl (Zofran Inj) 4 mg Q6H PRN IV 11/21/17 12:00 12/21/17 11:59 11/22/17 09:17 4 MG Miscellaneous (Iv Fluids Completed) 1 ea PRN PRN N/A 11/21/17 12:00 11/21/18 11:59 Thiamine HCl (Vitamin B-1 Tab) 100 mg QAM PO 11/21/17 12:47 12/21/17 12:46 11/22/17 07:49 100 MG Lorazepam (Ativan Tab) PRN Dosing -Active Protocol UD PRN PO 11/21/17 12:00 12/21/17 11:59 Multivitamins (Multivitamin Tab) 1 tab QAM PO 11/22/17 09:00 12/22/17 08:59 11/22/17 07:49 1 TAB Folic Acid (Folvite Tab) 1 mg QAM PO 11/22/17 09:00 12/22/17 08:59 11/22/17 07:49 1 MG Dextrose/Sodium Chloride 1,000 ml @ 100 mls/hr Q10H IV 11/21/17 14:00 12/21/17 13:59 11/22/17 09:19 100 MLS/HR Atenolol (Tenormin Tab) 25 mg QAM PO 11/22/17 09:00 12/22/17 08:59 11/22/17 07:50 25 MG Magnesium Oxide (Mag-Ox Tab) 400 mg BID PO 11/21/17 21:00 12/21/17 20:59 11/22/17 07:49 400 MG Potassium Chloride (Klor-Con Tab) 20 meq QAM PO 11/22/17 09:00 12/22/17 08:59 11/22/17 07:50 20 MEQ Sodium Chloride (Sodium Chloride Tab) 1 gm BID PO 11/22/17 09:00 12/22/17 08:59 11/22/17 07:50 1 GM Tamsulosin HCl (Flomax Cap) 0.4 mg HS PO 11/21/17 21:00 12/21/17 20:59 11/21/17 21:25 0.4 MG Clonidine HCl (Catapres Tab) 0.1 mg Q6 PRN PO 11/21/17 12:45 12/21/17 12:44 11/21/17 18:46 0.1 MG Gabapentin (Neurontin Tab) 600 mg Q8H PO 11/22/17 14:00 11/23/17 06:01 Gabapentin (Neurontin Tab) 600 mg Q12H PO 11/23/17 18:00 11/24/17 06:01 Gabapentin (Neurontin Tab) 600 mg Q24H PO 11/25/17 06:00 11/25/17 06:01 Objective Vital Signs Date Time Temp Pulse Resp B/P (MAP) Pulse Ox O2 Delivery O2 Flow Rate FiO2 11/22/17 12:00 Room Air 11/22/17 11:18 37.1 78 16 126/78 (94) 95 11/22/17 08:07 36.8 71 16 149/94 (112) 96 11/22/17 08:00 Room Air 11/22/17 04:00 Room Air 11/22/17 04:00 36.7 71 16 138/90 (106) 94 Room Air 11/22/17 00:00 Room Air 11/22/17 00:00 36.5 71 16 151/90 (110) 97 Room Air 11/21/17 21:35 158/87 (110) 11/21/17 20:00 Room Air 11/21/17 18:46 36.6 71 18 196/112 (140) 98 Room Air 11/21/17 16:10 Room Air 11/21/17 15:14 37.7 90 20 160/92 (114) 91 11/21/17 13:25 37.5 93 16 169/88 98 Room Air Physical Exam General Appearance: no apparent distress Respiratory/Chest: chest non-tender, lungs clear, normal breath sounds, no respiratory distress, no accessory muscle use Cardiovascular: regular rate, rhythm, no edema, no murmur Extremities: normal inspection, no pedal edema Neurologic/Psychiatric: no motor/sensory deficits, alert, normal mood/affect Laboratory Results Last 24 Hours Test 11/22/17 06:00 White Blood Count 9.96 K/uL Red Blood Count 4.32 M/uL Hemoglobin 13.9 g/dL Hematocrit 39.0 % Mean Corpuscular Volume 90.3 fL Mean Corpuscular Hemoglobin 32.2 pg Mean Corpuscular Hemoglobin Concent 35.6 g/dl RDW Standard Deviation 51.5 fL RDW Coefficient of Variation 15.4 % Platelet Count 141 K/uL Mean Platelet Volume 9.5 fL Sodium Level 136 mmol/L Potassium Level 3.6 mmol/L Chloride Level 101 mmol/L Carbon Dioxide Level 29 mmol/L Anion Gap 7.0 mmol/L Blood Urea Nitrogen 7 mg/dl Creatinine 0.60 mg/dl Est Creatinine Clear Calc Drug Dose 123.3 ml/min Estimated GFR () 133.0 Estimated GFR (Non- 114.8 BUN/Creatinine Ratio 11.3 Random Glucose 108 mg/dl Calcium Level 8.5 mg/dl Vitamin B12 Level 561 pg/mL Ethyl Alcohol mg/dL < 3.0 mg/dl Assessment and Plan This is a 52 year old male with a past medical history of alcohol abuse, hx. of withdrawal symptoms, ambulatory dysfunction, ataxia, hx. of dysphagia, frequent falls, HTN - presents with worsening ambulatory dysfunction, weakness, dizziness Ambulatory Dysfunction Ataxic Gait secondary to Alcoholism Alcohol Abuse/Alcohol Withdrawal - presents with alcohol use/abuse, has had gait issues in the past - previous R hip surgery in February due to fall - coming from apartment; lives alone; tells me he has trouble with gait - likely worsened with ataxia/alcohol abuse, etc. - continue PT/OT - will need placement - alcohol withdrawal protocol in place with gabapentin and Ativan - continue thiamine, folic acid, multivitamin - monitor electrolytes HTN - continue Atenolol DVT ppx - SCDs FULL CODE
[2017-11-22] MEDS: GABAPENTIN 600MG Q8H DOSE PO SCH ×2 (13:22→21:15)
[2017-11-22] MEDS: TAMSULOSIN HCL 0.4 MG CAP PO SCH (21:14)
[2017-11-23 04:00] VITALS: BP 162/92; PULSE 82; TEMP 36.9; O2SAT 98
[2017-11-23] MEDS: ACETAMINOPHEN 325 MG TAB PO PRN ×4 (04:39→22:42)
[2017-11-23 05:43] LABS: HEMATOCRIT 39.2 % (42-52); HEMOGLOBIN 13.7 g/dL (14.0-18.0); MEAN CELL VOLUME 91.2 fL (80-100); MEAN CORPUSCULAR HEMOGLOBIN 31.9 pg (25-34); MEAN CORPUSCULAR HGB CONC 34.9 g/dl (32-36); MEAN PLATELET VOLUME 10.5 fL (7.4-10.4); PLATELET COUNT 115 K/uL (130-400); RED CELL DISTRIBUTION WIDTH CV 15.2 % (11.5-14.5); WHITE BLOOD COUNT 9.46 K/uL (4.8-10.8)
[2017-11-23] MEDS: D5W AND NSS 1,000 ML IV SCH (05:49)
[2017-11-23 06:15] LABS: CALCIUM 8.4 mg/dl (8.5-10.1); CREATININE 0.6 mg/dl (0.60-1.40); POTASSIUM 3.5 mmol/L (3.5-5.1)
[2017-11-23] MEDS: GABAPENTIN 600MG Q8H DOSE PO SCH (06:30)
[2017-11-23] MEDS ORDERED: NURSING VERBAL MED ORDER ONE (08:10)
[2017-11-23 08:25] VITALS: BP 181/116; PULSE 80; TEMP 37; O2SAT 97
[2017-11-23] MEDS: CLONIDINE HCL 0.1 MG TAB PO PRN (08:26)
[2017-11-23] MEDS: MULTIVITAMIN TAB PO SCH (08:27)
[2017-11-23] MEDS: SODIUM CHLORIDE 1 GM TAB PO SCH ×2 (08:27→20:42)
[2017-11-23] MEDS: POTASSIUM CHLORIDE 20 MEQ TABCR PO SCH (08:27)
[2017-11-23] MEDS: MAGNESIUM OXIDE 400 MG TAB PO SCH ×2 (08:27→20:43)
[2017-11-23] MEDS: THIAMINE HCL 100 MG TAB PO SCH (08:27)
[2017-11-23] MEDS: ONDANSETRON INJ 2 MG/ML 2 ML VIAL IV PRN ×2 (11:26→22:44)
[2017-11-23 12:08] VITALS: BP 139/82; PULSE 69; TEMP 36.9; O2SAT 94
[2017-11-23] MEDS ORDERED: MAGNESIUM SULFATE 1GM / D5W 100 ML IV STA (12:53)
[2017-11-23] MEDS: LORAZEPAM 1 MG TAB PO PRN (13:57)
--- NOTE | 2017-11-23 14:52 | Progress Note ---
Subjective Date of Service: November 23, 2017. Subjective Pt evaluation today including: conversation w/ patient, physical exam, lab review, review of studies, review of inpatient medication list Saw/examined the patient in room 287 +anxious, ambulatory dysfunction persists states he's having difficulty with dysphagia and has some nausea Problem List Medical Problems: (1) Abnormal ECG Status: Acute (2) Alcohol dependence Status: Acute (3) Alcohol intoxication Status: Acute (4) Alcohol withdrawal Status: Acute (5) Alcohol withdrawal Status: Acute (6) Alcohol withdrawal Status: Acute (7) Alcohol withdrawal Status: Acute (8) Alcoholic ketoacidosis Status: Acute (9) Anemia Status: Acute (10) Ataxia Status: Acute (11) Ataxia Status: Acute (12) Closed left clavicular fracture Status: Acute (13) Dehydration Status: Acute (14) Elbow fracture, left Status: Acute (15) Fall as cause of accidental injury in residential institution as place of occurrence Status: Acute (16) Generalized weakness Status: Acute (17) Hip pain, right Status: Acute (18) Homeless Status: Acute (19) Hypokalemia Status: Acute (20) Hypophosphatemia Status: Acute (21) Hypotension Status: Acute (22) Intertrochanteric fracture of right hip Status: Acute (23) Lactic acidosis Status: Acute (24) Malnutrition Status: Acute (25) Pneumonia Status: Acute (26) Seizure Status: Acute (27) Syncope Status: Acute (28) Weakness Status: Acute Review of Systems Constitutional: + weakness, No fever, No chills ENT: + trouble swallowing Respiratory: No shortness of breath Cardiac: No chest pain, No edema, No palpitations Abdomen: + nausea, No pain, No vomiting, No diarrhea, No constipation, No GI bleeding Medications Current Inpatient Medications Medications (Trade) Dose Ordered Sig/Jaylene Route Start Time Stop Time Status Last Admin Dose Admin Acetaminophen (Tylenol Tab) 650 mg Q4H PRN PO 11/21/17 12:00 12/21/17 11:59 11/23/17 11:26 650 MG Ondansetron HCl (Zofran Inj) 4 mg Q6H PRN IV 11/21/17 12:00 12/21/17 11:59 11/23/17 11:26 4 MG Miscellaneous (Iv Fluids Completed) 1 ea PRN PRN N/A 11/21/17 12:00 11/21/18 11:59 Thiamine HCl (Vitamin B-1 Tab) 100 mg QAM PO 11/21/17 12:47 12/21/17 12:46 11/23/17 08:27 100 MG Lorazepam (Ativan Tab) PRN Dosing -Active Protocol UD PRN PO 11/21/17 12:00 12/21/17 11:59 11/23/17 13:57 1 MG Multivitamins (Multivitamin Tab) 1 tab QAM PO 11/22/17 09:00 12/22/17 08:59 11/23/17 08:27 1 TAB Folic Acid (Folvite Tab) 1 mg QAM PO 11/22/17 09:00 12/22/17 08:59 11/23/17 08:27 1 MG Atenolol (Tenormin Tab) 25 mg QAM PO 11/22/17 09:00 12/22/17 08:59 11/23/17 08:27 25 MG Magnesium Oxide (Mag-Ox Tab) 400 mg BID PO 11/21/17 21:00 12/21/17 20:59 11/23/17 08:27 400 MG Potassium Chloride (Klor-Con Tab) 20 meq QAM PO 11/22/17 09:00 12/22/17 08:59 11/23/17 08:27 20 MEQ Sodium Chloride (Sodium Chloride Tab) 1 gm BID PO 11/22/17 09:00 12/22/17 08:59 11/23/17 08:27 1 GM Tamsulosin HCl (Flomax Cap) 0.4 mg HS PO 11/21/17 21:00 12/21/17 20:59 11/22/17 21:14 0.4 MG Clonidine HCl (Catapres Tab) 0.1 mg Q6 PRN PO 11/21/17 12:45 12/21/17 12:44 11/23/17 08:26 0.1 MG Gabapentin (Neurontin Tab) 600 mg Q12H PO 11/23/17 18:00 11/24/17 06:01 Gabapentin (Neurontin Tab) 600 mg Q24H PO 11/25/17 06:00 11/25/17 06:01 Objective Vital Signs Date Time Temp Pulse Resp B/P (MAP) Pulse Ox O2 Delivery O2 Flow Rate FiO2 11/23/17 12:12 Room Air 11/23/17 12:08 36.9 69 16 139/82 (101) 94 11/23/17 08:35 Room Air 11/23/17 08:25 37.0 80 18 181/116 (137) 97 Room Air 11/23/17 06:00 Room Air 11/23/17 04:00 Room Air 11/23/17 04:00 36.9 82 16 162/92 (115) 98 Room Air 11/23/17 00:00 Room Air 11/22/17 23:45 36.8 78 18 136/84 (101) 95 Room Air 11/22/17 20:06 36.5 79 18 152/85 (107) 95 Room Air 11/22/17 20:00 Room Air 11/22/17 16:00 Room Air 11/22/17 15:42 36.7 76 16 134/50 (78) 96 Physical Exam General Appearance: no apparent distress Respiratory/Chest: lungs clear, normal breath sounds, no respiratory distress, no accessory muscle use Cardiovascular: regular rate, rhythm, no edema, no murmur Laboratory Results Last 24 Hours Test 11/23/17 05:14 White Blood Count 9.46 K/uL Red Blood Count 4.30 M/uL Hemoglobin 13.7 g/dL Hematocrit 39.2 % Mean Corpuscular Volume 91.2 fL Mean Corpuscular Hemoglobin 31.9 pg Mean Corpuscular Hemoglobin Concent 34.9 g/dl RDW Standard Deviation 51.0 fL RDW Coefficient of Variation 15.2 % Platelet Count 115 K/uL Mean Platelet Volume 10.5 fL Sodium Level 138 mmol/L Potassium Level 3.5 mmol/L Chloride Level 105 mmol/L Carbon Dioxide Level 28 mmol/L Anion Gap 6.0 mmol/L Blood Urea Nitrogen 5 mg/dl Creatinine 0.60 mg/dl Est Creatinine Clear Calc Drug Dose 123.5 ml/min Estimated GFR () 133.0 Estimated GFR (Non- 114.8 BUN/Creatinine Ratio 8.0 Random Glucose 77 mg/dl Calcium Level 8.4 mg/dl Magnesium Level 1.7 mg/dl Assessment and Plan This is a 52 year old male with a past medical history of alcohol abuse, hx. of withdrawal symptoms, ambulatory dysfunction, ataxia, hx. of dysphagia, frequent falls, HTN - presents with worsening ambulatory dysfunction, weakness, dizziness Ambulatory Dysfunction Ataxic Gait secondary to Alcoholism Alcohol Abuse/Alcohol Withdrawal 11/23 - continue EtOH withdrawal protocol - PT/OT - d/c home in AM (11/24) 11/22 - presents with alcohol use/abuse, has had gait issues in the past - previous R hip surgery in February due to fall - coming from apartment; lives alone; tells me he has trouble with gait - likely worsened with ataxia/alcohol abuse, etc. - continue PT/OT - will need placement - alcohol withdrawal protocol in place with gabapentin and Ativan - continue thiamine, folic acid, multivitamin - monitor electrolytes HTN - continue Atenolol DVT ppx - SCDs FULL CODE
[2017-11-23 15:40] VITALS: BP 131/86; PULSE 69; TEMP 36.5; O2SAT 96
[2017-11-23] MEDS: GABAPENTIN 600MG Q12H DOSE PO SCH (17:34)
[2017-11-23 20:10] VITALS: BP 145/85; PULSE 75; TEMP 36.9; O2SAT 96
[2017-11-23] MEDS: TAMSULOSIN HCL 0.4 MG CAP PO SCH (20:43)
[2017-11-23 22:49] VITALS: BP 159/93; PULSE 66; TEMP 36.7; O2SAT 96
[2017-11-24 03:45] VITALS: BP 146/89; PULSE 72; TEMP 36.9; O2SAT 96
[2017-11-24] MEDS: GABAPENTIN 600MG Q12H DOSE PO SCH (05:53)
[2017-11-24 06:10] LABS: HEMOGLOBIN 12.7 g/dL (14.0-18.0); MEAN CELL VOLUME 90.7 fL (80-100); MEAN CORPUSCULAR HEMOGLOBIN 31.1 pg (25-34); MEAN CORPUSCULAR HGB CONC 34.3 g/dl (32-36); MEAN PLATELET VOLUME 10.9 fL (7.4-10.4); PLATELET COUNT 108 K/uL (130-400); RED CELL DISTRIBUTION WIDTH CV 14.8 % (11.5-14.5); RED CELL DISTRIBUTION WIDTH SD 49.9 fL (36.4-46.3); WHITE BLOOD COUNT 6.61 K/uL (4.8-10.8)
[2017-11-24 07:19] LABS: CALCIUM 8.6 mg/dl (8.5-10.1); CREATININE 0.52 mg/dl (0.60-1.40); POTASSIUM 4.2 mmol/L (3.5-5.1)
[2017-11-24 07:38] VITALS: BP 171/98; PULSE 63; O2SAT 98
[2017-11-24] MEDS: CLONIDINE HCL 0.1 MG TAB PO PRN (07:39)
[2017-11-24 08:00] VITALS: O2SAT 98
[2017-11-24 08:14] VITALS: BP 136/96; PULSE 96
[2017-11-24] MEDS: SODIUM CHLORIDE 1 GM TAB PO SCH (08:24)
[2017-11-24] MEDS: MAGNESIUM OXIDE 400 MG TAB PO SCH (08:24)
[2017-11-24] MEDS: THIAMINE HCL 100 MG TAB PO SCH (08:25)
[2017-11-24] MEDS: POTASSIUM CHLORIDE 20 MEQ TABCR PO SCH (08:25)
[2017-11-24] MEDS: MULTIVITAMIN TAB PO SCH (08:25)
[2017-11-24] MEDS: LORAZEPAM 1 MG TAB PO PRN (08:29)
[2017-11-24] MEDS: ONDANSETRON INJ 2 MG/ML 2 ML VIAL IV PRN (10:49)
[2017-11-24] MEDS: ACETAMINOPHEN 325 MG TAB PO PRN (10:51)
[2017-11-24 11:54] VITALS: BP 122/83; PULSE 63; TEMP 36.9; O2SAT 98
[2017-11-24] MEDS ORDERED: MULT-890 PO (12:11)
--- NOTE | 2017-11-24 12:11 | Progress Note ---
Subjective Date of Service: November 24, 2017. Subjective Pt evaluation today including: conversation w/ patient, physical exam, lab review, review of studies, review of inpatient medication list Saw/examined the patient in room 287-1 Continues to c/o ambulatory issues; refusing SNF or home health realizes he needs to stop drinking, but refusing AA meetings or inpatient rehab Problem List Medical Problems: (1) Abnormal ECG Status: Acute (2) Alcohol dependence Status: Acute (3) Alcohol intoxication Status: Acute (4) Alcohol withdrawal Status: Acute (5) Alcohol withdrawal Status: Acute (6) Alcohol withdrawal Status: Acute (7) Alcohol withdrawal Status: Acute (8) Alcoholic ketoacidosis Status: Acute (9) Anemia Status: Acute (10) Ataxia Status: Acute (11) Ataxia Status: Acute (12) Closed left clavicular fracture Status: Acute (13) Dehydration Status: Acute (14) Elbow fracture, left Status: Acute (15) Fall as cause of accidental injury in residential institution as place of occurrence Status: Acute (16) Generalized weakness Status: Acute (17) Hip pain, right Status: Acute (18) Homeless Status: Acute (19) Hypokalemia Status: Acute (20) Hypophosphatemia Status: Acute (21) Hypotension Status: Acute (22) Intertrochanteric fracture of right hip Status: Acute (23) Lactic acidosis Status: Acute (24) Malnutrition Status: Acute (25) Pneumonia Status: Acute (26) Seizure Status: Acute (27) Syncope Status: Acute (28) Weakness Status: Acute Review of Systems Constitutional: + weakness Respiratory: No shortness of breath Cardiac: No chest pain Neurologic: + weakness, + vertigo, + balance problems, No memory loss, No paralysis Medications Current Inpatient Medications Medications (Trade) Dose Ordered Sig/Jaylene Route Start Time Stop Time Status Last Admin Dose Admin Acetaminophen (Tylenol Tab) 650 mg Q4H PRN PO 11/21/17 12:00 12/21/17 11:59 11/24/17 10:51 650 MG Ondansetron HCl (Zofran Inj) 4 mg Q6H PRN IV 11/21/17 12:00 12/21/17 11:59 11/24/17 10:49 4 MG Miscellaneous (Iv Fluids Completed) 1 ea PRN PRN N/A 11/21/17 12:00 11/21/18 11:59 Thiamine HCl (Vitamin B-1 Tab) 100 mg QAM PO 11/21/17 12:47 12/21/17 12:46 11/24/17 08:25 100 MG Lorazepam (Ativan Tab) PRN Dosing -Active Protocol UD PRN PO 11/21/17 12:00 12/21/17 11:59 11/24/17 08:29 1 MG Multivitamins (Multivitamin Tab) 1 tab QAM PO 11/22/17 09:00 12/22/17 08:59 11/24/17 08:25 1 TAB Folic Acid (Folvite Tab) 1 mg QAM PO 11/22/17 09:00 12/22/17 08:59 11/24/17 08:24 1 MG Atenolol (Tenormin Tab) 25 mg QAM PO 11/22/17 09:00 12/22/17 08:59 11/24/17 08:25 25 MG Magnesium Oxide (Mag-Ox Tab) 400 mg BID PO 11/21/17 21:00 12/21/17 20:59 11/24/17 08:24 400 MG Potassium Chloride (Klor-Con Tab) 20 meq QAM PO 11/22/17 09:00 12/22/17 08:59 11/24/17 08:25 20 MEQ Sodium Chloride (Sodium Chloride Tab) 1 gm BID PO 11/22/17 09:00 12/22/17 08:59 11/24/17 08:24 1 GM Tamsulosin HCl (Flomax Cap) 0.4 mg HS PO 11/21/17 21:00 12/21/17 20:59 11/23/17 20:43 0.4 MG Clonidine HCl (Catapres Tab) 0.1 mg Q6 PRN PO 11/21/17 12:45 12/21/17 12:44 11/24/17 07:39 0.1 MG Gabapentin (Neurontin Tab) 600 mg Q24H PO 11/25/17 06:00 11/25/17 06:01 Objective Vital Signs Date Time Temp Pulse Resp B/P (MAP) Pulse Ox O2 Delivery O2 Flow Rate FiO2 11/24/17 11:54 36.9 63 16 122/83 (96) 98 Room Air 11/24/17 08:14 96 136/96 (109) 11/24/17 08:00 98 Room Air 11/24/17 07:38 63 16 171/98 (122) 98 Room Air 11/24/17 04:00 Room Air 11/24/17 03:45 36.9 72 16 146/89 (108) 96 Room Air 11/24/17 00:00 Room Air 11/23/17 22:49 36.7 66 20 159/93 (115) 96 Room Air 11/23/17 20:10 36.9 75 18 145/85 (105) 96 Room Air 11/23/17 20:00 Room Air 11/23/17 16:00 Room Air 11/23/17 15:40 36.5 69 16 131/86 (101) 96 11/23/17 12:12 Room Air Physical Exam General Appearance: no apparent distress, + thin Respiratory/Chest: lungs clear, normal breath sounds, no respiratory distress, no accessory muscle use Cardiovascular: regular rate, rhythm, no edema, no murmur Extremities: normal inspection, no pedal edema Neurologic/Psychiatric: no motor/sensory deficits, alert, normal mood/affect Laboratory Results Last 24 Hours Test 11/24/17 05:41 White Blood Count 6.61 K/uL Red Blood Count 4.08 M/uL Hemoglobin 12.7 g/dL Hematocrit 37.0 % Mean Corpuscular Volume 90.7 fL Mean Corpuscular Hemoglobin 31.1 pg Mean Corpuscular Hemoglobin Concent 34.3 g/dl RDW Standard Deviation 49.9 fL RDW Coefficient of Variation 14.8 % Platelet Count 108 K/uL Mean Platelet Volume 10.9 fL Sodium Level 132 mmol/L Potassium Level 4.2 mmol/L Chloride Level 98 mmol/L Carbon Dioxide Level 28 mmol/L Anion Gap 6.0 mmol/L Blood Urea Nitrogen 7 mg/dl Creatinine 0.52 mg/dl Est Creatinine Clear Calc Drug Dose 142.9 ml/min Estimated GFR () 141.1 Estimated GFR (Non- 121.7 BUN/Creatinine Ratio 13.4 Random Glucose 88 mg/dl Calcium Level 8.6 mg/dl Magnesium Level 1.8 mg/dl Assessment and Plan This is a 52 year old male with a past medical history of alcohol abuse, hx. of withdrawal symptoms, ambulatory dysfunction, ataxia, hx. of dysphagia, frequent falls, HTN - presents with worsening ambulatory dysfunction, weakness, dizziness Ambulatory Dysfunction Ataxic Gait secondary to Alcoholism Alcohol Abuse/Alcohol Withdrawal 11/24 - continues to have ambulatory dysfunction - plan to d/c home today, refusing home health; has signed out of [facility] in the past - outpatient PCP follow-up, outpatient director of casework services aware 11/23 - continue EtOH withdrawal protocol - PT/OT - d/c home in AM (11/24) 11/22 - presents with alcohol use/abuse, has had gait issues in the past - previous R hip surgery in February due to fall - coming from apartment; lives alone; tells me he has trouble with gait - likely worsened with ataxia/alcohol abuse, etc. - continue PT/OT - will need placement - alcohol withdrawal protocol in place with gabapentin and Ativan - continue thiamine, folic acid, multivitamin - monitor electrolytes HTN - continue Atenolol DVT ppx - SCDs FULL CODE
--- NOTE | 2017-11-24 12:13 | Discharge Instructions ---
Discharge Instructions Date of Service November 24, 2017. Admission Reason for Admission: Alcohol Withdrawal Discharge Discharge Diagnosis / Problem: Alcohol Withdrawal Discharge Goals Goal(s): Decrease discomfort, Improve function, Diagnostic testing, Therapeutic intervention Activity Recommendations Activity Limitations: resume your previous activity . Instructions / Follow-Up Instructions / Follow-Up Please follow-up with your primary care doctor Please stop alcohol use - you should continue AA meetings Current Hospital Diet Patient's current hospital diet: Regular Diet Discharge Diet Recommended Diet: Regular Diet Pending Studies Studies pending at discharge: no Medical Emergencies . Who to Call and When: Medical Emergencies: If at any time you feel your situation is an emergency, please call 911 immediately. . Non-Emergent Contact Non-Emergency issues call your: Primary Care Provider . . "Provider Documentation" section prepared by Xenia Cabrera. .
--- NOTE | 2017-11-24 12:14 | Discharge Summary ---
Discharge Summary Date of Service November 24, 2017. Discharge Summary Admission Date: November 21, 2017 at 11:44 Discharge Date: November 24, 2017 Discharge Disposition: Home Principal Diagnosis: Ambulatory Dysfunction Ataxic Gait secondary to Alcoholism Alcohol Abuse/Alcohol Withdrawal Medication Reconciliation New Medications: Multiple Vitamin (Daily-Ifeanyi) 1 Tab Tab 1 TAB PO QAM for 30 Days, #30 TAB Continued Medications: Atenolol (Atenolol) 25 Mg Tab 25 MG PO QAM for 30 Days, #30 TAB Folic Acid (Folic Acid) 1 Mg Tab 1 MG PO QAM for 30 Days, #30 TAB Magnesium Oxide (Magnesium-Oxide) 400 Mg Tab 400 MG PO BID for 30 Days, #60 TAB Potassium Chloride (Klor-Con M20) 20 Meq Tabcr 20 MEQ PO QAM for 30 Days, #20 TABS Sodium Chloride (Sodium Chloride) 1 Gm Tab 1 GM PO BID for 30 Days, #30 TAB Tamsulosin HCl (Tamsulosin HCl) 0.4 Mg Cap 0.4 MG PO HS for 30 Days, #30 CAP Thiamine HCl (Vitamin B-1) 50 Mg Tab 50 MG PO QAM for 100 Days, #60 TAB Admission Information HPI (per Admitting provider): This is a 52-year-old man with PMH of alcohol abuse who presents with complaints of dizziness and generalized weakness beginning this morning. Patient has been admitted multiple times for alcohol withdrawal in the past, most recently from November 01-. Since last being discharged, patient has resumed drinking 6-8 beers daily. Last drink was around 9pm last night when he ran out of beer at his apartment. Woke up this AM feeling dizzy and generally weak. Tried to ambulate with walker in apartment but lost his balance and fell forward onto his knees. Denies head trauma or LOC. Was also experiencing nausea and SOB. Was brought in to ED by EMS for further evaluation. In the ED, was found to be hypertensive at 190/97 and hypoglycemic at 59. Etoh level of 130. Was given ativan, a banana bag and a clonidine patch. States that he still feels shaky and weak but dizziness and SOB are improving. Denies any near-syncope, seizures, confusion, chest pain, palpitations, abdominal pain, vomiting, bowel or bladder changes or LE swelling. Has not filled any prescriptions provided at discharge 3 weeks ago (atenolol, folic acid, multivitamin, B1, Mag, NaCl) due to lack of funds. Does not have interest in alcohol rehab. States that he has tried it 3 times in the past and it hasn't worked. Physical Exam (per Admitting): General Appearance: WD/WN, no apparent distress, + pertinent finding ( Chronically ill appearing. Eating crackers, watching TV. ) Head: normocephalic, atraumatic Eyes: normal inspection, PERRL, sclerae normal ENT: normal ENT inspection, hearing grossly normal, pharynx normal (dry mucous membranes ) Neck: supple, thyroid normal, trachea midline Respiratory/Chest: chest non-tender, lungs clear, normal breath sounds, no respiratory distress, no accessory muscle use Cardiovascular: regular rate, rhythm, no murmur, normal peripheral pulses Abdomen/GI: non tender, soft, no organomegaly Extremities/Musculoskelatal: normal inspection, no calf tenderness, no pedal edema, + pertinent finding (bilateral tremors ) Neurologic/Psych: no motor/sensory deficits, alert, normal mood/affect, oriented x 3 Skin: normal color, warm/dry, no rash Hospital Course This is a 52 year old male with a past medical history of alcohol abuse, hx. of withdrawal symptoms, ambulatory dysfunction, ataxia, hx. of dysphagia, frequent falls, HTN - presents with worsening ambulatory dysfunction, weakness, dizziness Ambulatory Dysfunction Ataxic Gait secondary to Alcoholism Alcohol Abuse/Alcohol Withdrawal 11/24 - continues to have ambulatory dysfunction - plan to d/c home today, refusing home health; has signed out of [facility] in the past - outpatient PCP follow-up, outpatient patient case manager aware 11/23 - continue EtOH withdrawal protocol - PT/OT - d/c home in AM (11/24) 11/22 - presents with alcohol use/abuse, has had gait issues in the past - previous R hip surgery in February due to fall - coming from apartment; lives alone; tells me he has trouble with gait - likely worsened with ataxia/alcohol abuse, etc. - continue PT/OT - will need placement - alcohol withdrawal protocol in place with gabapentin and Ativan - continue thiamine, folic acid, multivitamin - monitor electrolytes HTN - continue Atenolol DVT ppx - SCDs FULL CODE Total time spent on discharge = 20 minutes This includes examination of the patient, discharge planning, medication reconciliation, and communication with other providers. Discharge Instructions Please follow-up with your primary care doctor Please stop alcohol use - you should continue AA meetings
[2017-11-24 14:01] VITALS: BP 122/83; PULSE 63; TEMP 36.9; O2SAT 98
[2017-11-25] MEDS ORDERED: GABAPENTIN 600MG X1 DOSE PO SCH (06:00)
== END 2017-11-24 14:40 | disposition home or self-care (01) ==
LOC: EDBD 09:32 → C.EDA 09:34 → C.MED 11:44 → ENRESERV 12:07
PROVIDERS: ADMIT Hospitalist; ATTEND Family Medicine
DX: R26.9 Unspecified abnormalities of gait and mobility (principal); R53.1 Weakness; R42 Dizziness and giddiness; E87.2 Acidosis; E87.1 Hypo-osmolality and hyponatremia; F10.230 Alcohol dependence with withdrawal, uncomplicated; I10 Essential (primary) hypertension; E83.42 Hypomagnesemia; Z88.0 Allergy status to penicillin; Z82.49 Family history of ischemic heart disease and other diseases of the circulatory system

== ENCOUNTER 2017-12-06 18:44 | Emergency (ER) | payer OTHER ==
[~2017-12-06] VITALS: Ht 180.3 cm; Wt 60.2 kg
[~2017-12-06 18:44] MED LIST changes: +MULT-890 PO
[2017-12-06 18:45] VITALS: TEMP 36.7; Ht 180.3 cm; Wt 60.2 kg
[2017-12-06] MEDS ORDERED: PYRIDOXINE HCL 50 MG TAB PO STA (18:50)
[2017-12-06] MEDS ORDERED: THIAMINE HCL 100 MG TAB PO STA (18:50)
--- NOTE | 2017-12-06 18:52 | EMERGENCY ROOM VISIT NOTE ---
History Report prepared by Renetta: Abran Kim Under the Supervision of: Dr. Junaid Dallas M.D. First contact with patient: 18:44 Chief Complaint: DIZZY Stated Complaint: DIZZINESS History of Present Illness The patient is a 52 year old male who presents to the Emergency Room with complaints of constant dizziness beginning today. The patient states that he was walking downtown to buy beer to go along with his dinner tonight. He notes that when he was downtown, he became dizzy, nauseous, and lightheaded. He reports that he then sat on a bench because of his lightheadedness and felt like he could not move. The patient states that he did not eat anything today, but usually does not eat until this time. He notes that he has a history of alcoholism, and drank one beer today. He reports that he drank three beers yesterday. The patient states that he does not take any medications. Source of History: patient Onset: today Position: head Quality: other Timing: constant Associated Symptoms: + nausea Note: The patient also complains of lightheadedness. Review of Systems See HPI for pertinent positives & negatives. A total of 10 systems reviewed and were otherwise negative. Past Medical & Surgical Medical Problems: (1) Alcohol withdrawal (2) Alcoholism (3) Ambulatory dysfunction (4) Delirium tremens (5) Dysphagia (6) Frequent falls (7) Hypertension Social History Problems: (1) Alcohol abuse Family History Hypertension Social History Smoking Status: Never Smoker Alcohol Use: heavy Drug Use: none Marital Status: single Housing Status: other Occupation Status: disabled Current/Historical Medications Scheduled Folic Acid (Folvite), 1 TAB PO DAILY Multiple Vitamin (Multi Vitamin), 1 TAB PO DAILY Thiamine Hcl (Vitamin B-1), 50 MG PO DAILY Allergies Coded Allergies: Penicillins (Verified Adverse Reaction, Mild, TIRED, 12/06/17) Physical Exam Vital Signs Date Time Temp Pulse Resp B/P (MAP) Pulse Ox O2 Delivery O2 Flow Rate FiO2 12/06/17 23:25 99 18 174/96 94 Room Air 12/06/17 23:04 79 12/06/17 22:55 84 18 169/97 95 Room Air 92 163/98 120 133/108 12/06/17 22:51 80 18 169/95 93 Room Air 12/06/17 22:20 97 Room Air 12/06/17 20:48 104 20 149/100 97 Room Air 12/06/17 19:51 106 12/06/17 18:45 36.7 85 20 155/101 98 Room Air Physical Exam GENERAL: Awake, alert, well-appearing, in no acute distress HENT: Normocephalic, atraumatic. Oropharynx unremarkable. EYES: Normal conjunctiva. Sclera non-icteric. NECK: Supple. No nuchal rigidity. FROM. No JVD. RESPIRATORY: Clear to auscultation. CARDIAC: Regular rate, normal rhythm. Extremities warm and well perfused. Pulses equal. ABDOMEN: Soft, non-distended. No tenderness to palpation. No rebound or guarding. No masses. RECTAL: Deferred. MUSCULOSKELETAL: Chest examination reveals no tenderness. The back is symmetrical on inspection without obvious abnormality. There is no CVA tenderness to palpation. No joint edema. LOWER EXTREMITIES: Calves are equal size bilaterally and non-tender. No edema. No discoloration. NEURO: Normal sensorium. No sensory or motor deficits noted. SKIN: No rash or jaundice noted. Medical Decision & Procedures ER Provider Diagnostic Interpretation: Radiology results as stated below per my review and interpretation: 1 VIEW CHEST X-RAY: No evidence of pneumonia, congestion, or pneumothorax. Laboratory Results 12/06/17 22:40 Red Blood Count 4.39, Mean Corpuscular Volume 88.6, Mean Corpuscular Hemoglobin 31.4, Mean Corpuscular Hemoglobin Concent 35.5, Mean Platelet Volume 8.8, Neutrophils (%) (Auto) 89.2, Lymphocytes (%) (Auto) 6.6, Monocytes (%) (Auto) 3.6, Eosinophils (%) (Auto) 0.0, Basophils (%) (Auto) 0.3, Neutrophils # (Auto) 10.43, Lymphocytes # (Auto) 0.77, Monocytes # (Auto) 0.42, Eosinophils # (Auto) 0.00, Basophils # (Auto) 0.04 12/06/17 22:40 Test 12/06/17 22:40 White Blood Count 11.70 K/uL (4.8-10.8) Red Blood Count 4.39 M/uL (4.7-6.1) Hemoglobin 13.8 g/dL (14.0-18.0) Hematocrit 38.9 % (42-52) Mean Corpuscular Volume 88.6 fL (80-100) Mean Corpuscular Hemoglobin 31.4 pg (25-34) Mean Corpuscular Hemoglobin Concent 35.5 g/dl (32-36) Platelet Count 170 K/uL (130-400) Mean Platelet Volume 8.8 fL (7.4-10.4) Neutrophils (%) (Auto) 89.2 % Lymphocytes (%) (Auto) 6.6 % Monocytes (%) (Auto) 3.6 % Eosinophils (%) (Auto) 0.0 % Basophils (%) (Auto) 0.3 % Neutrophils # (Auto) 10.43 K/uL (1.4-6.5) Lymphocytes # (Auto) 0.77 K/uL (1.2-3.4) Monocytes # (Auto) 0.42 K/uL (0.11-0.59) Eosinophils # (Auto) 0.00 K/uL (0-0.5) Basophils # (Auto) 0.04 K/uL (0-0.2) RDW Standard Deviation 50.0 fL (36.4-46.3) RDW Coefficient of Variation 15.4 % (11.5-14.5) Immature Granulocyte % (Auto) 0.3 % Immature Granulocyte # (Auto) 0.04 K/uL (0.00-0.02) Anion Gap 16.0 mmol/L (3-11) Est Creatinine Clear Calc Drug Dose 82.7 ml/min Estimated GFR () 113.7 Estimated GFR (Non- 98.1 BUN/Creatinine Ratio 6.9 (10-20) Calcium Level 8.6 mg/dl (8.5-10.1) Total Bilirubin 0.6 mg/dl (0.2-1) Direct Bilirubin 0.2 mg/dl (0-0.2) Aspartate Amino Transf (AST/SGOT) 162 U/L (15-37) Alanine Aminotransferase (ALT/SGPT) 85 U/L (12-78) Alkaline Phosphatase 131 U/L (45-117) Total Creatine Kinase 183 U/L (39-308) Total Protein 8.2 gm/dl (6.4-8.2) Albumin 4.1 gm/dl (3.4-5.0) Thyroid Stimulating Hormone (TSH) 0.651 uIu/ml (0.300-4.500) Labs reviewed by ED physician. Medications Administered Medications (Trade) Dose Ordered Sig/Jaylene Route Start Time Stop Time Status Last Admin Dose Admin Thiamine HCl (Vitamin B-1 Tab) 100 mg NOW STAT PO 12/06/17 18:50 12/06/17 18:52 DC 12/06/17 19:37 100 MG Folic Acid (Folvite Tab) 1 mg QAM STAT PO 12/06/17 18:50 12/06/17 18:52 DC 12/06/17 19:37 1 MG Pyridoxine HCl (Vitamin B-6 Tab) 50 mg NOW STAT PO 12/06/17 18:50 12/06/17 18:52 DC 12/06/17 19:38 50 MG Ondansetron HCl (Zofran Odt) 4 mg ONE ONCE PO 12/06/17 19:15 12/06/17 19:16 DC 12/06/17 19:18 4 MG Lorazepam (Ativan Inj) 1 mg NOW STAT IV 12/06/17 22:13 12/06/17 22:15 DC 12/06/17 22:13 1 MG ED Course 1846: Past medical records reviewed. The patient was evaluated in room A9. A complete history and physical examination was performed. 1849: Pyridoxine HCl 50mg PO, Folic Acid 1mg PO, Thiamine HCl 100mg PO 1912: The patient started to vomit. 1914: Zofran Odt 4mg PO 1931: I reevaluated and updated the patient. 1951: I rechecked the patient. 2103: The patient is still feeling weak and lightheaded. 2212: Clonidine HCl 1 patch TD, Ativan Inj 1mg IV 2320: Upon reexamination the patient is stable. I discussed results and treatment plan with the patient. He verbalizes agreement and understanding. The patient is ready for discharge. Medical Decision Differential diagnosis: Etiologies such as metabolic, infection, hypo/hyperglycemia, electrolyte abnormalities, cardiac sources, intracerebral event, toxicologic, neurologic, as well as others were entertained. This is a 52-year-old male who presents emergency department after having not eaten in 24 hours. Patient is a known alcoholic and I suspect he was feeling weak downtown when he began exerting himself due to not eating. His blood sugar here is 70. For this reason the patient was given food here in the emergency department. He is also given multivitamins. The patient did not feel well enough to be discharged home and I suspect he started going into alcohol withdrawal. At this point he was given Ativan in the emergency department. Repeat examination revealed much improvement the patient's symptoms. At this point now that the patient wishes to leave. He was again ambulated by nursing staff. 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 He was given scripts for his multivitamins which she did not get filled since his last hospitalization. The patient has demonstrated no significant defect in the decision-making capacity to make choices. The encounter had a good level of communication with language the patient can easily understand. I feel trust was present and conveyed that our action/intentions were the best interest of the patient. The patient was given all relevant information and reiterated the explained risks and benefits. The patient explained the reasoning for refusing treatment clearly. The patient possesses and expresses a set of values and goals, the ability to communicate and understand, and an ability to reason and deliberate. Despite acting emphatically, attentively and with the utmost patient's the patient declined further treatment. I offered options, negotiated, and explored every reasonable choice. I must respect the patient's autonomy and that they feel that their choices are best for them despite the associated risks of leaving without completing the evaluation. The patient was informed about the findings as listed above. All questions were answered and he was pleased with the treatment. Return instructions were outlined and the patient was discharged in stable condition. Medication Reconcilliation Current Medication List: was personally reviewed by me Blood Pressure Screening Patient's blood pressure: Elevated blood pressure Blood pressure disposition: Referred to PCP Impression Primary Impression: Hypoglycemia Scribe Attestation The scribe's documentation has been prepared under my direction and personally reviewed by me in its entirety. I confirm that the note above accurately reflects all work, treatment, procedures, and medical decision making performed by me. Departure Information Dispostion Home / Self-Care Prescriptions Folic Acid (FOLVITE) 1 Mg Tab 1 TAB PO DAILY for 30 Days, #30 TAB Prov: Junaid Dallas MD 12/06/17 Thiamine Hcl (Vitamin B-1) 50 Mg Tab 50 MG PO DAILY for 30 Days, #30 TAB Prov: Junaid Dallas MD 12/06/17 Multiple Vitamin (Multi Vitamin) 1 Tab Tab 1 TAB PO DAILY for 30 Days, #30 TAB Prov: Junaid Dallas MD 12/06/17 Referrals No Doctor, Assigned (PCP) Forms HOME CARE DOCUMENTATION FORM, IMPORTANT VISIT INFORMATION Patient Instructions My [facility] Additional Instructions You have been examined and treated today on an emergency basis only. This is not a substitute for, or an effort to provide, complete comprehensive medical care. It is impossible to recognize and treat all injuries or illnesses in a single emergency department visit. It is therefore important that you follow up closely with your PCP. Call as soon as possible for an appointment. Thank you for your time and consideration. I look forward to speaking with you again soon. Please don't hesitate to call us if you have any questions.
[2017-12-06] MEDS ORDERED: ONDANSETRON 4MG OD TAB PO ONE (19:15)
[2017-12-06] MEDS ORDERED: THIA50TA3 PO (20:06)
[2017-12-06] MEDS ORDERED: MULT-1027 PO (20:06)
[2017-12-06] MEDS ORDERED: FOLI1TAB8 PO (20:06)
[2017-12-06] MEDS ORDERED: CLONIDINE HCL 0.3 MG/24 HR TRANSDERM SYS TD STA (22:13)
[2017-12-06] MEDS ORDERED: LORAZEPAM 2 MG/ML 1 ML VIAL IV STA (22:13)
[2017-12-06] MEDS ORDERED: MULTI-VITAMIN INFUSION INJ 10 ML, THIAMINE HCL INJ 100 MG, FoLIC ACID INJ 1 MG in SODIU... IV ONE (22:15)
[2017-12-06 22:20] VITALS: O2SAT 97
[2017-12-06 22:53] LABS: BASO % 0.3 %; BASO ABS # 0.04 K/uL (0-0.2); HEMATOCRIT 38.9 % (42-52); HEMOGLOBIN 13.8 g/dL (14.0-18.0); IG# 0.04 K/uL (0.00-0.02); LYMPH % 6.6 %; LYMPH ABS # 0.77 K/uL (1.2-3.4); MEAN CELL VOLUME 88.6 fL (80-100); MEAN CORPUSCULAR HEMOGLOBIN 31.4 pg (25-34); MEAN CORPUSCULAR HGB CONC 35.5 g/dl (32-36); MEAN PLATELET VOLUME 8.8 fL (7.4-10.4); MONO % 3.6 %; MONO ABS # 0.42 K/uL (0.11-0.59); NEUT % 89.2 %; NEUT ABS # 10.43 K/uL (1.4-6.5); PLATELET COUNT 170 K/uL (130-400); RED CELL DISTRIBUTION WIDTH CV 15.4 % (11.5-14.5)
[2017-12-06] MEDS ORDERED: SODIUM CHLORIDE 0.9% 1000ML 1,000 ML IV STA (23:07)
[2017-12-06 23:23] LABS: ALBUMIN 4.1 gm/dl (3.4-5.0); CALCIUM 8.6 mg/dl (8.5-10.1); CREATININE 0.88 mg/dl (0.60-1.40); POTASSIUM 3.8 mmol/L (3.5-5.1); TOTAL PROTEIN 8.2 gm/dl (6.4-8.2)
[2017-12-06 23:25] VITALS: BP 174/96; PULSE 99; O2SAT 94
--- NOTE | 2017-12-07 06:40 | DIAGNOSTIC IMAGING REPORT ---
CHEST ONE VIEW PORTABLE HISTORY: 52 years-old Male Pt c/o weakness acute weakness COMPARISON: Chest radiograph 11/21/2017 TECHNIQUE: Portable AP view of the chest FINDINGS: Cardiomediastinal and hilar silhouettes are within normal limits. Lungs are hyperinflated. Linear subsegmental left basilar opacities suggest atelectasis or scarring. There is no pneumothorax, pleural effusion, focal airspace consolidation or overt pulmonary edema. Multiple healed remote fractures about the left ribs. Degenerative changes of the shoulders and spine. IMPRESSION: No acute process. The above report was generated using voice recognition software. It may contain grammatical, syntax or spelling errors. Electronically signed by: Mark Hernandez M.D. 12/07/2017 6:38 AM Dictated Date/Time: 12/07/2017 6:37 AM
== END 2017-12-06 23:30 | disposition home or self-care (01) ==
LOC: C.EDA 18:44
DX: E16.2 Hypoglycemia, unspecified (principal); F10.20 Alcohol dependence, uncomplicated; I10 Essential (primary) hypertension; Z82.49 Family history of ischemic heart disease and other diseases of the circulatory system; Z79.899 Other long term (current) drug therapy; Z88.0 Allergy status to penicillin

== ENCOUNTER 2018-02-06 16:44 | Inpatient (IN) | payer OTHER ==
[~2018-02-06] VITALS: Ht 180.3 cm; Wt 58.0 kg
[~2018-02-06 16:44] MED LIST changes: -FLM4 PO; -FLV1 PO; +FOLI1TAB8 PO; -MCRK20 PO; -MGNO400 PO; +MULT-1027 PO; -MULT-890 PO; -SDMC1 PO; -THM50 PO; -TNR25 PO
[2018-02-06] MEDS ORDERED: LORAZEPAM 2 MG/ML 1 ML VIAL IV STA ×2 (17:08→20:56)
[2018-02-06 17:55] LABS: BASO % 0.4 %; BASO ABS # 0.05 K/uL (0-0.2); EOS % 0.4 %; EOS ABS # 0.05 K/uL (0-0.5); HEMATOCRIT 40.7 % (42-52); HEMOGLOBIN 14.2 g/dL (14.0-18.0); IG# 0.05 K/uL (0.00-0.02); LYMPH % 9.1 %; LYMPH ABS # 1.25 K/uL (1.2-3.4); MEAN CELL VOLUME 93.8 fL (80-100); MEAN CORPUSCULAR HEMOGLOBIN 32.7 pg (25-34); MEAN CORPUSCULAR HGB CONC 34.9 g/dl (32-36); MONO % 9.6 %; MONO ABS # 1.32 K/uL (0.11-0.59); NEUT % 80.1 %; NEUT ABS # 10.99 K/uL (1.4-6.5); PLATELET COUNT 198 K/uL (130-400); RED CELL DISTRIBUTION WIDTH CV 15.3 % (11.5-14.5); RED CELL DISTRIBUTION WIDTH SD 52.8 fL (36.4-46.3); WHITE BLOOD COUNT 13.71 K/uL (4.8-10.8)
[2018-02-06] MEDS ORDERED: MULT-506 PO (18:06)
[2018-02-06] MEDS ORDERED: FOLI1TAB8 PO (18:06)
[2018-02-06 18:20] LABS: ALBUMIN 3.8 gm/dl (3.4-5.0); ALKALINE PHOSPHATASE 132 U/L (45-117); ALT/SGPT 35 U/L (12-78); AST/SGOT 67 U/L (15-37); BLOOD UREA NITROGEN 7 mg/dl (7-18); CALCIUM 9.2 mg/dl (8.5-10.1); CARBON DIOXIDE 29 mmol/L (21-32); CREATININE 1.08 mg/dl (0.60-1.40); GLUCOSE 160 mg/dl (70-99); PHOSPHORUS 2.5 mg/dl (2.5-4.9); POTASSIUM 4.5 mmol/L (3.5-5.1); SODIUM 135 mmol/L (136-145); TOTAL PROTEIN 7.9 gm/dl (6.4-8.2)
[2018-02-06] MEDS ORDERED: THIAMINE HCL 100 MG TAB PO STA (18:44)
[2018-02-06] MEDS ORDERED: VANCOMYCIN CONSULT ACTIVE PRN (20:15)
[2018-02-06] MEDS ORDERED: PIPERACILL/TAZOBAC CONSULT ACTIVE PRN (20:15)
[2018-02-06] MEDS ORDERED: ALUMINUM/MAGNESIUM/SIMETH (MAALOX MAX) 30 ML UDC PO PRN (20:15)
[2018-02-06] MEDS ORDERED: NITROGLYCERIN 0.4 MG SL PER TAB CHARGE SL PRN (20:15)
[2018-02-06] MEDS ORDERED: ONDANSETRON INJ 2 MG/ML 2 ML VIAL IV PRN (20:15)
[2018-02-06] MEDS ORDERED: LORAZEPAM 2 MG/ML 1 ML VIAL ONE (20:21)
[2018-02-06] MEDS ORDERED: GABAPENTIN 600 MG TAB PO SCH (20:30)
[2018-02-06] MEDS ORDERED: LORAZEPAM 1 MG TAB PO PRN (20:30)
[2018-02-06] MEDS ORDERED: METOPROLOL TARTRATE 1 MG/ML VIAL ONE (20:56)
[2018-02-06] MEDS ORDERED: PIPERACILLIN/TAZOBACTAM 4.5 GM/100ML D5W IV STA (20:59)
[2018-02-06] MEDS ORDERED: VANCOMYCIN IV 1,500 MG in SODIUM CHLORIDE 0.9% 500ML 500 ML IV ONE (21:30)
[2018-02-06] MEDS: HEPARIN SOD 5000 UNIT/0.5 ML CARP SQ SCH (22:00)
[2018-02-06] MEDS ORDERED: GABAPENTIN 1200MG LOADING DOSE PO SCH (22:00)
[2018-02-06 22:18] VITALS: BP 171/95; PULSE 112; TEMP 36.5; O2SAT 97
--- NOTE | 2018-02-06 22:24 | HISTORY & PHYSICAL EXAMINATION ---
DATE OF ADMISSION: 02/06/2018 CHIEF COMPLAINT: Alcoholism, ambulatory dysfunction. HISTORY OF PRESENT ILLNESS: This is a 52-year-old male with past medical history significant for recurrent admissions for alcoholism, alcohol withdrawal, ambulatory dysfunction, history of dysphagia, history of oesophageal strictures status post dilatation in the past, frequent falls, hypertension, presents because of ambulatory dysfunction and shakiness. The patient is a poor historian, very hard to hear. He is shaky, seems to be in alcohol withdrawal. He says his last drink was a couple of days ago. Alcohol level was 6 in the ER. The patient says he went to [facility] and was discharged and supposed to go to alcohol rehab and could not get a clear history but seems like he was having lot of difficulty ambulating and his friend brought him here for further care and patient says [facility] told him to go to [facility] to get a better care. The patient has lot of shakiness and complains of feeling chilly, but denies headache. He says he was nauseous earlier. Complains of some pain in the legs and says he is having lot of difficulty ambulating. Denies any chest pain. No belly pain. Could not get much history from him as he is constantly shaking and seems to have some hard time comprehending too. He says he is chilly and it generally happens with his withdrawals. ALLERGIES: PENICILLIN. PAST MEDICAL HISTORY: As mentioned above. PAST SURGICAL HISTORY: EGD and dilatation of the esophageal stricture. MEDICATIONS: Thiamine, folic acid, multivitamin. He is also supposed to be on Flomax and salt tablets and atenolol, but looks like not taking. FAMILY HISTORY: Hypertension. SOCIAL HISTORY: No smoking history. Alcohol heavy drinking daily. No drug use. Single and employed, lives alone. IMMUNIZATIONS: Unknown. REVIEW OF SYSTEMS: As per HPI. Rest of symptoms could not be obtained at this time. PHYSICAL EXAMINATION: GENERAL: Patient is of moderate built, some shaking. VITAL SIGNS: Temperature 37.5, pulse 120, respiratory rate 18, blood pressure 134/115, oxygen 98% on room air. HEENT: No pallor, no icterus. NECK: No JVD, no neck masses. CARDIOVASCULAR: S1, S2 heard. Tachycardia. No murmurs, regular. RESPIRATORY SYSTEM: Normal AP diameter. No accessory muscle use. No wheezing, no crackles. ABDOMEN: Soft, bowel sounds present. Nontender. No distention. CENTRAL NERVOUS SYSTEM: Alert and awake, very shaky. EXTREMITIES: Mild pedal edema. No erythema seen. LABORATORIES: WBC 13.7, hemoglobin 14.2, hematocrit 40.7, platelets 198. Sodium 135, potassium 4.5, chloride 97, CO2 29, BUN 7, creatinine 1.08, serum glucose 160, calcium 9.2, phosphorus 2.5, magnesium 1.8, total bilirubin 0.5867, ALT 35, alkaline phosphatase 132, troponin I less than 0.015. PT 10.3, INR 1. Urinalysis: Positive for trace leukocyte esterase. His alcohol level 6. EKG: Normal sinus rhythm with a rate of 96. ASSESSMENT AND PLAN: This is a 52-year-old male who presents with alcoholism and ambulatory dysfunction. 1. Alcoholism, recurrent admissions for his alcohol withdrawal. The patient is having tachycardia, shaky, most likely from alcohol withdrawal. We will place him on gabapentin withdrawal protocol, IV Ativan p.r.n., thiamine, folic acid. Close monitor in the tele floor. 2. Possible early sepsis. The patient complains of some chilliness. He says he generally not chilly with withdrawal. White count is mildly elevated. UA is mildly positive. We will place empirically on Zosyn and vancomycin for now. IV fluids. Check lactic acids. Follow the cultures. 3. Ambulatory dysfunction. The patient has a history of ambulatory dysfunction from his alcoholism. Seems to be getting worse. PT and OT when more stable. 4. History of benign prostatic hypertrophy, supposed to be on Flomax. The patient not taking. 5. History of hyponatremia, supposed to be on salt tablets. The patient seems not taking. Sodium is 135. We will follow the labs. 6. History of hypertension, supposed to be on atenolol, seems to be not taking. We will place him on IV Lopressor prn and monitor. 7. Deep venous thrombosis prophylaxis, SCDs and heparin subQ. DISPOSITION: Admit to tele floor. PT, OT, social service to help with discharge planning. Level 1 full code for now. MTDD
[2018-02-06] MEDS: SODIUM CHLORIDE 0.9% 1000ML 1,000 ML IV SCH ×2 (22:43→23:46)
[2018-02-06] MEDS ORDERED: NURSING VERBAL MED ORDER ONE (22:45)
--- NOTE | 2018-02-06 22:57 | Pharmacy Progress Note ---
Pharmacy Abx Initial Consult Date of Service Feb 06, 2018. Pharmacy Dosing Scope Date of Consult: 02/06/18 Consultation requested by: Dr. Dalton Pharmacy is consulted to initiate Vanc and Zosyn IV dosing therapy, order appropriate labs and adjust drug dose/frequency. Objective Height (Feet): 5 Height (Inches): 11.00 Weight (Kilograms): 61.360 Vital Signs (Past 12Hrs) Vital Signs Past 12 Hours Date Time Temp Pulse Resp B/P (MAP) Pulse Ox O2 Delivery O2 Flow Rate FiO2 02/06/18 22:18 36.5 112 20 171/95 (120) 97 Room Air 02/06/18 21:07 112 16 153/105 98 02/06/18 20:58 124 151/134 02/06/18 20:42 119 20 151/134 98 Room Air 02/06/18 19:35 126 18 134/115 98 Room Air 02/06/18 19:03 37.5 02/06/18 19:01 118 20 193/107 98 Room Air 02/06/18 17:47 94 02/06/18 16:48 36.6 83 20 97 Room Air Lab Results (24Hrs) Laboratory Tests (24 Hours) Test 02/06/18 17:35 02/06/18 21:08 White Blood Count 13.71 K/uL (4.8-10.8) H Red Blood Count 4.34 M/uL (4.7-6.1) L Hemoglobin 14.2 g/dL (14.0-18.0) Hematocrit 40.7 % (42-52) L Mean Corpuscular Volume 93.8 fL (80-100) Mean Corpuscular Hemoglobin 32.7 pg (25-34) Mean Corpuscular Hemoglobin Concent 34.9 g/dl (32-36) Platelet Count 198 K/uL (130-400) Mean Platelet Volume 9.0 fL (7.4-10.4) Neutrophils (%) (Auto) 80.1 % Lymphocytes (%) (Auto) 9.1 % Monocytes (%) (Auto) 9.6 % Eosinophils (%) (Auto) 0.4 % Basophils (%) (Auto) 0.4 % Neutrophils # (Auto) 10.99 K/uL (1.4-6.5) H Lymphocytes # (Auto) 1.25 K/uL (1.2-3.4) Monocytes # (Auto) 1.32 K/uL (0.11-0.59) H Eosinophils # (Auto) 0.05 K/uL (0-0.5) Basophils # (Auto) 0.05 K/uL (0-0.2) Lactic Acid Level 4.7 mmol/L (0.4-2.0) *H Micro Results Date/Time Source Procedure Growth Status 02/06/18 21:08 Blood Blood Culture Pending Received 02/06/18 21:08 Blood Blood Culture Pending Received 02/06/18 19:35 Urine , Clean Catch Urine Culture Pending Received Risk Factors for Resistance * Hospitalization for 48 hours or more within the past 90 days Assessment & Plan Assessment 52 year old male admitted with alcohol withdrawal. Recent admission to [facility]. Patient tachycardic with mild leukocytosis. Patient has been started on empiric antibiotic therapy, r/o sepsis. Plan Vancomycin IV * Loading dose: 1500 mg (24 mg/kg) * Maintenance dose: 1000 mg IV (16 mg/kg) every 12 hours * Goal trough level for possible sepsis : 15 to 20 mcg/mL * Trough level will be ordered if therapy continues beyond 48 hours (currently ordered with indication of EMPIRIC - auto 48 hour stop) Piperacillin/tazobactam * 3.375 g bolus administered over 30 minutes, then 3.375 g IV extended infusion every 8 hours for CrCl greater than 20 mL/min Pharmacy will continue to follow and will adjust dose/frequency as necessary. Thank you.
[2018-02-06] MEDS ORDERED: PIPERACILL/TAZOBAC IV 3.375 GM in DEXTROSE 5% 100ML 100 ML IV ONE (23:00)
[2018-02-06] MEDS ORDERED: SODIUM CHLORIDE 0.9% 1000ML 1,000 ML IV ONE (23:00)
[2018-02-06 23:21] VITALS: BP 171/95; PULSE 112; TEMP 36.5; O2SAT 97; BMI 17.0
[2018-02-07] VITALS (9 sets, daily range): BP systolic 134–162; BP diastolic 85–99; PULSE 80–113; TEMP 36.6–37.2; O2SAT 92–97; Ht 180.3 cm; Wt 58.0 kg
[2018-02-07] MEDS: PIPERACILL/TAZOBAC IV 3.375 GM in DEXTROSE 5% 100ML 100 ML IV SCH ×3 (03:44→20:30)
[2018-02-07] MEDS: HEPARIN SOD 5000 UNIT/0.5 ML CARP SQ SCH ×3 (05:52→22:04)
[2018-02-07] MEDS: GABAPENTIN 600MG Q6H DOSE PO SCH ×2 (06:02→12:10)
[2018-02-07 06:38] LABS: BASO % 0.3 %; BASO ABS # 0.04 K/uL (0-0.2); EOS % 0.5 %; EOS ABS # 0.07 K/uL (0-0.5); HEMATOCRIT 42.6 % (42-52); HEMOGLOBIN 14.7 g/dL (14.0-18.0); IG# 0.05 K/uL (0.00-0.02); LYMPH % 8.1 %; LYMPH ABS # 1.17 K/uL (1.2-3.4); MEAN CELL VOLUME 94.7 fL (80-100); MEAN CORPUSCULAR HEMOGLOBIN 32.7 pg (25-34); MEAN CORPUSCULAR HGB CONC 34.5 g/dl (32-36); MONO % 9.6 %; MONO ABS # 1.39 K/uL (0.11-0.59); NEUT % 81.2 %; PLATELET COUNT 137 K/uL (130-400); RED CELL DISTRIBUTION WIDTH CV 15.6 % (11.5-14.5); RED CELL DISTRIBUTION WIDTH SD 54.1 fL (36.4-46.3); WHITE BLOOD COUNT 14.42 K/uL (4.8-10.8)
[2018-02-07 07:15] LABS: ALBUMIN 3.3 gm/dl (3.4-5.0); CALCIUM 8.6 mg/dl (8.5-10.1); CREATININE 0.63 mg/dl (0.60-1.40); POTASSIUM 3.2 mmol/L (3.5-5.1)
[2018-02-07 07:27] LABS: TOTAL PROTEIN 7.4 gm/dl (6.4-8.2)
[2018-02-07] MEDS: THIAMINE HCL 100 MG TAB PO SCH (07:31)
[2018-02-07] MEDS: MULTIVITAMIN TAB PO SCH (07:31)
[2018-02-07] MEDS: SODIUM CHLORIDE 0.9% 1000ML 1,000 ML IV SCH ×2 (08:15→16:35)
[2018-02-07] MEDS: VANCOMYCIN IV 1,000 MG in SODIUM CHLORIDE 0.9% 250ML 250 ML IV SCH ×2 (09:39→20:30)
[2018-02-07] MEDS ORDERED: VANCOMYCIN IV 1,000 MG in SODIUM CHLORIDE 0.9% 250ML 250 ML IV SCH (12:00)
--- NOTE | 2018-02-07 12:56 | Pharmacy Progress Note ---
Pharmacy Abx Dose Short Note Date of Service Feb 07, 2018. Assessment & Plan Assessment * 52 year old male receiving vancomycin and Zosyn for empiric treatment of sepsis * Day # 2 of antimicrobial therapy * Scr 0.3 mg/dL, CrCl >100 ml/min Plan Vancomycin * Vd ~0.7, ke ~0.06 hr-1, t1/2 11.5hr * Increase dose to 1000 mg IV every 10 hours * Goal trough level: 15-20 mcg/mL * Trough level will be ordered if antibiotics are continued for longer than 48 hours Zosyn * continue 3.375g Q8H for CrCl >20 mL/min Pharmacy will continue to follow and will adjust dose/frequency as necessary. Thank you.
--- NOTE | 2018-02-07 16:59 | Progress Note ---
Internal Med Progress Note Date of Service: Feb 07, 2018. Provider Documentation: SUBJECTIVE: No complaint of alcohol withdrawal, Mild tremor in outstretched hands No fever chills, no shortness of breath or dyspnea on exertion Patient reports of feeling very weak, off balance worried that History of recurrent fall at home secondary to intoxication versus neuropathy, symptom worsening because of ongoing alcohol abuse OBJECTIVE: Vital Signs-as noted below Exam: General-very disheveled, chronically ill-appearing patient with continued tremor Eyes-sclera nonicteric ENT-dry oral mucosa Neck-no JVD, no carotid bruit no thyromegaly trachea midline Lungs-clear to auscultate no wheeze or rales Heart-regular/tachycardic Abdomen-soft nontender, bowel sounds active Extremities-no lower extremity edema Neuro-tremor on outstretched hands and fingers/no focal neurological deficit Lab data as noted below. ASSESSMENT & PLAN: ALCOHOL INTOXICATION/WITHDRAWAL, Multiple admissions in past with similar symptoms Presented with tachycardia tremor shakiness/anxiety Serum alcohol level 6 Patient reports of not drinking alcohol for the past 2-3 days Continue gabapentin alcohol withdrawal protocol As needed IV Ativan Continue thiamine and folic acid Close monitoring of hemodynamics Caution for severe withdrawal symptoms/delirium tremens FEVER/CHILLS/LEUKOCYTOSIS -Not sure of the source of infection Patient is empirically treated with IV Zosyn and vancomycin Follow blood and urine culture LACTIC ACIDOSIS Possible possible secondary to severe alcohol abuse Continue IV fluids Follow lactic acid level AMBULATORY DYSFUNCTION/FALL Multiple episodes of fall possible secondary to alcohol intoxication Refused alcohol rehab in the past PT OT eval requested HYPONATREMIA Injury to chronic alcohol abuse/SIADH Sodium at approximate baseline of 135 HYPOKALEMIA : replaced with PO and IV supplement repeat K in AM follow mg level HYPERTENSION Home antihypertensive atenolol Questionable compliance Continue beta-calin Monitor in telemetry to assess -tachycardia/hypertensive urgency secondary to alcohol withdrawal CODE STATUS: Full DVT PROPHYLAXIS Subcu heparin DISPOSITION To be determined Will benefit with alcohol rehab, refused rehab referral in past PT OT eval requested Social service consulted for discharge planning Vital Signs: Date Time Temp Pulse Resp B/P (MAP) Pulse Ox O2 Delivery O2 Flow Rate FiO2 02/08/18 00:00 Room Air 02/07/18 23:11 37.0 96 18 158/99 (118) 96 Room Air 02/07/18 20:06 37.1 108 18 135/90 (105) 95 Room Air 02/07/18 20:00 95 Room Air 02/07/18 16:15 Room Air 02/07/18 15:14 36.9 113 16 150/92 (111) 93 Room Air 02/07/18 14:45 107 97 02/07/18 12:22 36.7 93 16 152/90 (110) 96 Room Air 02/07/18 12:15 Room Air 02/07/18 08:15 Room Air 02/07/18 07:34 36.7 80 16 162/96 (118) 96 Room Air 02/07/18 04:53 36.6 82 20 154/95 (114) 92 Room Air Lab Results: Results Past 24 Hours Test 02/07/18 06:20 Range/Units White Blood Count 14.42 4.8-10.8 K/uL Red Blood Count 4.50 4.7-6.1 M/uL Hemoglobin 14.7 14.0-18.0 g/dL Hematocrit 42.6 42-52 % Mean Corpuscular Volume 94.7 80-100 fL Mean Corpuscular Hemoglobin 32.7 25-34 pg Mean Corpuscular Hemoglobin Concent 34.5 32-36 g/dl Platelet Count 137 130-400 K/uL Mean Platelet Volume 10.0 7.4-10.4 fL Neutrophils (%) (Auto) 81.2 % Lymphocytes (%) (Auto) 8.1 % Monocytes (%) (Auto) 9.6 % Eosinophils (%) (Auto) 0.5 % Basophils (%) (Auto) 0.3 % Neutrophils # (Auto) 11.70 1.4-6.5 K/uL Lymphocytes # (Auto) 1.17 1.2-3.4 K/uL Monocytes # (Auto) 1.39 0.11-0.59 K/uL Eosinophils # (Auto) 0.07 0-0.5 K/uL Basophils # (Auto) 0.04 0-0.2 K/uL RDW Standard Deviation 54.1 36.4-46.3 fL RDW Coefficient of Variation 15.6 11.5-14.5 % Immature Granulocyte % (Auto) 0.3 % Immature Granulocyte # (Auto) 0.05 0.00-0.02 K/uL Sodium Level 138 136-145 mmol/L Potassium Level 3.2 3.5-5.1 mmol/L Chloride Level 103 98-107 mmol/L Carbon Dioxide Level 27 21-32 mmol/L Anion Gap 9.0 3-11 mmol/L Blood Urea Nitrogen 4 7-18 mg/dl Creatinine 0.63 0.60-1.40 mg/dl Est Creatinine Clear Calc Drug Dose 107.6 ml/min Estimated GFR () 130.4 Estimated GFR (Non- 112.5 BUN/Creatinine Ratio 6.0 10-20 Random Glucose 102 70-99 mg/dl Lactic Acid Level 2.5 0.4-2.0 mmol/L Calcium Level 8.6 8.5-10.1 mg/dl Magnesium Level 1.7 1.8-2.4 mg/dl Total Bilirubin 1.3 0.2-1 mg/dl Direct Bilirubin 0.3 0-0.2 mg/dl Aspartate Amino Transf (AST/SGOT) 48 15-37 U/L Alanine Aminotransferase (ALT/SGPT) 28 12-78 U/L Alkaline Phosphatase 117 45-117 U/L Total Protein 7.4 6.4-8.2 gm/dl Albumin 3.3 3.4-5.0 gm/dl
[2018-02-07] MEDS ORDERED: POTASSIUM CHLORIDE 10 MEQ TABCR PO STA (17:11)
[2018-02-07] MEDS ORDERED: MAGNESIUM SULFATE 1GM / D5W 100 ML IV STA (17:16)
[2018-02-07] MEDS: NSS + 20MEQ KCL 1000ML 1,000 ML IV SCH (18:02)
[2018-02-07] MEDS: MAGNESIUM OXIDE 400 MG TAB PO SCH (20:31)
[2018-02-07] MEDS: GABAPENTIN 600MG Q8H DOSE PO SCH (22:02)
[2018-02-08] MEDS: NSS + 20MEQ KCL 1000ML 1,000 ML IV SCH ×3 (02:10→18:48)
[2018-02-08] MEDS: PIPERACILL/TAZOBAC IV 3.375 GM in DEXTROSE 5% 100ML 100 ML IV SCH ×2 (04:04→11:35)
[2018-02-08 04:33] VITALS: BP 161/99; PULSE 84; TEMP 36.6; O2SAT 96
[2018-02-08] MEDS: VANCOMYCIN IV 1,000 MG in SODIUM CHLORIDE 0.9% 250ML 250 ML IV SCH (05:49)
[2018-02-08] MEDS: GABAPENTIN 600MG Q8H DOSE PO SCH ×2 (05:50→13:45)
[2018-02-08] MEDS: HEPARIN SOD 5000 UNIT/0.5 ML CARP SQ SCH ×3 (05:54→21:04)
[2018-02-08 06:39] LABS: BASO % 0.9 %; BASO ABS # 0.08 K/uL (0-0.2); EOS ABS # 0.28 K/uL (0-0.5); HEMATOCRIT 35.6 % (42-52); IG# 0.04 K/uL (0.00-0.02); LYMPH % 16.7 %; LYMPH ABS # 1.57 K/uL (1.2-3.4); MEAN CELL VOLUME 95.4 fL (80-100); MEAN CORPUSCULAR HEMOGLOBIN 32.2 pg (25-34); MEAN CORPUSCULAR HGB CONC 33.7 g/dl (32-36); MEAN PLATELET VOLUME 9.7 fL (7.4-10.4); MONO % 10.5 %; MONO ABS # 0.99 K/uL (0.11-0.59); NEUT % 68.5 %; NEUT ABS # 6.45 K/uL (1.4-6.5); PLATELET COUNT 115 K/uL (130-400); RED CELL DISTRIBUTION WIDTH CV 15.3 % (11.5-14.5); RED CELL DISTRIBUTION WIDTH SD 53.4 fL (36.4-46.3); WHITE BLOOD COUNT 9.41 K/uL (4.8-10.8)
[2018-02-08 06:55] LABS: CALCIUM 8.4 mg/dl (8.5-10.1); CREATININE 0.7 mg/dl (0.60-1.40); POTASSIUM 3.3 mmol/L (3.5-5.1)
[2018-02-08] MEDS: MAGNESIUM OXIDE 400 MG TAB PO SCH ×2 (07:52→21:02)
[2018-02-08] MEDS: THIAMINE HCL 100 MG TAB PO SCH (07:52)
[2018-02-08] MEDS: MULTIVITAMIN TAB PO SCH (07:52)
--- NOTE | 2018-02-08 09:03 | DIAGNOSTIC IMAGING REPORT ---
CHEST ONE VIEW PORTABLE CLINICAL HISTORY: SOB dyspnea COMPARISON STUDY: 12/06/2017 FINDINGS: Minimal platelike atelectasis left base. Lungs otherwise are clear. No significant cardiac enlargement. Moderate degenerative change at both shoulders. IMPRESSION: No acute process. The above report was generated using voice recognition software. It may contain grammatical, syntax or spelling errors. Electronically signed by: Keven Vann M.D. 02/08/2018 7:21 AM Dictated Date/Time: 02/08/2018 7:20 AM
[2018-02-08] MEDS ORDERED: POTASSIUM CHLORIDE 10 MEQ TABCR PO STA (10:04)
[2018-02-08] MEDS ORDERED: MAGNESIUM SULFATE 1GM / D5W 100 ML IV STA (10:04)
[2018-02-08 11:20] VITALS: BP 143/89; PULSE 82; TEMP 36.7; O2SAT 95
[2018-02-08 14:48] VITALS: BP_SYST 159; BP_SYST 161; BP_DIAS 109; BP_DIAS 116; PULSE 88; TEMP 36.7; O2SAT 95
--- NOTE | 2018-02-08 18:33 | Progress Note ---
Internal Med Progress Note Date of Service: Feb 08, 2018. Provider Documentation: SUBJECTIVE: Patient sitting on chair Complains that he is still very weak and fatigue Having difficulty maneuvering his walker to go to [facility] Denies of being anxious Tremor on outstretched hand After discussion patient is agreeable to go to alcohol rehab Wants to go to indoor rehab, was in [facility] in the past Does not want to go there As most of the meetings are outdoor Patient mentions he will not be able to maneuver walker in the outdoor setting OBJECTIVE: Vital Signs-as noted below Exam: General-very disheveled, chronically ill-appearing patient with continued tremor Eyes-sclera nonicteric ENT-dry oral mucosa Neck-no JVD, no carotid bruit no thyromegaly trachea midline Lungs-clear to auscultate no wheeze or rales Heart-regular/tachycardic Abdomen-soft nontender, bowel sounds active Extremities-no lower extremity edema Neuro-tremor on outstretched hands and fingers/no focal neurological deficit Lab data as noted below. ASSESSMENT & PLAN: ALCOHOL INTOXICATION/WITHDRAWAL, No evidence of active withdrawal at present Multiple admissions in past with similar symptoms Presented with tachycardia tremor shakiness/anxiety Serum alcohol level 6 Patient reports of not drinking alcohol for the past 2-3 days Continue gabapentin alcohol withdrawal protocol Continue thiamine and folic acid After multiple discussions-patient is willing to look into alcohol rehab in [place] Does not want to go to [facility] which has outdoors sitting for alcohol rehab meetings FEVER/CHILLS/LEUKOCYTOSIS -Symptom has resolved Treated empirically for 3 days No source of infection found Okay to DC antibiotic LACTIC ACIDOSIS Possible possible secondary to severe alcohol abuse No evidence of sepsis Improved lactic acid level with IV hydration Follow lactic acid level AMBULATORY DYSFUNCTION/FALL Multiple episodes of fall possible secondary to alcohol intoxication Refused alcohol rehab in the past -Now willing to consider at alcohol rehab in [place] Social service consult for discharge planning PT OT eval requested HYPONATREMIA Injury to chronic alcohol abuse/SIADH Sodium at approximate baseline of 135 HYPOKALEMIA : replaced with PO and IV supplement repeat K in AM follow mg level HYPERTENSION Home antihypertensive atenolol Questionable compliance Continue beta-calin Monitor in telemetry to assess -tachycardia/hypertensive urgency secondary to alcohol withdrawal CODE STATUS: Full DVT PROPHYLAXIS Subcu heparin DISPOSITION To be determined Will benefit with alcohol rehab, willing to try alcohol rehab PT OT eval requested Social service consulted for discharge planning Vital Signs: Date Time Temp Pulse Resp B/P (MAP) Pulse Ox O2 Delivery O2 Flow Rate FiO2 02/08/18 16:00 Room Air 02/08/18 14:48 36.7 88 20 161/116 (131) 95 Room Air 159/109 (126) 02/08/18 11:20 36.7 82 16 143/89 (107) 95 Room Air 02/08/18 08:30 Room Air 02/08/18 04:33 36.6 84 18 161/99 (119) 96 Room Air 02/08/18 00:00 Room Air 02/07/18 23:11 37.0 96 18 158/99 (118) 96 Room Air 02/07/18 20:06 37.1 108 18 135/90 (105) 95 Room Air 02/07/18 20:00 95 Room Air Lab Results: Results Past 24 Hours Test 02/08/18 06:23 02/08/18 06:29 Range/Units White Blood Count 9.41 4.8-10.8 K/uL Red Blood Count 3.73 4.7-6.1 M/uL Hemoglobin 12.0 14.0-18.0 g/dL Hematocrit 35.6 42-52 % Mean Corpuscular Volume 95.4 80-100 fL Mean Corpuscular Hemoglobin 32.2 25-34 pg Mean Corpuscular Hemoglobin Concent 33.7 32-36 g/dl Platelet Count 115 130-400 K/uL Mean Platelet Volume 9.7 7.4-10.4 fL Neutrophils (%) (Auto) 68.5 % Lymphocytes (%) (Auto) 16.7 % Monocytes (%) (Auto) 10.5 % Eosinophils (%) (Auto) 3.0 % Basophils (%) (Auto) 0.9 % Neutrophils # (Auto) 6.45 1.4-6.5 K/uL Lymphocytes # (Auto) 1.57 1.2-3.4 K/uL Monocytes # (Auto) 0.99 0.11-0.59 K/uL Eosinophils # (Auto) 0.28 0-0.5 K/uL Basophils # (Auto) 0.08 0-0.2 K/uL RDW Standard Deviation 53.4 36.4-46.3 fL RDW Coefficient of Variation 15.3 11.5-14.5 % Immature Granulocyte % (Auto) 0.4 % Immature Granulocyte # (Auto) 0.04 0.00-0.02 K/uL Sodium Level 135 136-145 mmol/L Potassium Level 3.3 3.5-5.1 mmol/L Chloride Level 102 98-107 mmol/L Carbon Dioxide Level 24 21-32 mmol/L Anion Gap 9.0 3-11 mmol/L Blood Urea Nitrogen 5 7-18 mg/dl Creatinine 0.70 0.60-1.40 mg/dl Est Creatinine Clear Calc Drug Dose 96.7 ml/min Estimated GFR () 124.9 Estimated GFR (Non- 107.7 BUN/Creatinine Ratio 6.9 10-20 Random Glucose 94 70-99 mg/dl Calcium Level 8.4 8.5-10.1 mg/dl Magnesium Level 1.7 1.8-2.4 mg/dl Procalcitonin 0.10 0-0.5 ng/ml Lactic Acid Level 2.1 0.4-2.0 mmol/L
[2018-02-08 19:45] VITALS: BP 148/93; PULSE 99; TEMP 36.6; O2SAT 97
[2018-02-08] MEDS: POTASSIUM CHLORIDE 20 MEQ TABCR PO SCH (21:02)
[2018-02-08 23:08] VITALS: BP 170/108; PULSE 88; TEMP 37.1; O2SAT 94
[2018-02-09] VITALS (8 sets, daily range): BP systolic 139–180; BP diastolic 87–120; PULSE 64–88; TEMP 36.6–37.3; O2SAT 91–97
[2018-02-09] MEDS: GABAPENTIN 600MG Q12H DOSE PO SCH ×2 (00:07→11:39)
[2018-02-09] MEDS: METOPROLOL TARTRATE 1 MG/ML VIAL IV PRN (00:31)
[2018-02-09] MEDS: ACETAMINOPHEN 325 MG TAB PO PRN (00:34)
[2018-02-09] MEDS: NSS + 20MEQ KCL 1000ML 1,000 ML IV SCH ×2 (01:59→10:33)
[2018-02-09] MEDS: HEPARIN SOD 5000 UNIT/0.5 ML CARP SQ SCH ×3 (05:49→20:57)
[2018-02-09] MEDS: MAGNESIUM OXIDE 400 MG TAB PO SCH ×2 (07:32→20:57)
[2018-02-09] MEDS: POTASSIUM CHLORIDE 20 MEQ TABCR PO SCH ×2 (07:32→20:57)
[2018-02-09] MEDS: MULTIVITAMIN TAB PO SCH (08:48)
[2018-02-09] MEDS: THIAMINE HCL 100 MG TAB PO SCH (08:48)
[2018-02-09 09:17] LABS: BASO % 0.7 %; BASO ABS # 0.06 K/uL (0-0.2); EOS % 2.7 %; EOS ABS # 0.24 K/uL (0-0.5); HEMATOCRIT 36.2 % (42-52); HEMOGLOBIN 12.4 g/dL (14.0-18.0); IG# 0.04 K/uL (0.00-0.02); LYMPH % 17.5 %; LYMPH ABS # 1.55 K/uL (1.2-3.4); MEAN CELL VOLUME 95.3 fL (80-100); MEAN CORPUSCULAR HEMOGLOBIN 32.6 pg (25-34); MEAN CORPUSCULAR HGB CONC 34.3 g/dl (32-36); MEAN PLATELET VOLUME 10.1 fL (7.4-10.4); MONO % 9.3 %; MONO ABS # 0.82 K/uL (0.11-0.59); NEUT % 69.3 %; NEUT ABS # 6.13 K/uL (1.4-6.5); PLATELET COUNT 134 K/uL (130-400); RED CELL DISTRIBUTION WIDTH SD 52.6 fL (36.4-46.3); WHITE BLOOD COUNT 8.84 K/uL (4.8-10.8)
[2018-02-09 09:53] LABS: CREATININE 0.6 mg/dl (0.60-1.40)
[2018-02-09 09:54] LABS: CALCIUM 8.7 mg/dl (8.5-10.1); POTASSIUM 4.1 mmol/L (3.5-5.1)
--- NOTE | 2018-02-09 18:08 | Progress Note ---
Internal Med Progress Note Date of Service: Feb 09, 2018. Provider Documentation: SUBJECTIVE: Complains of feeling dizzy lightheaded States that he still has tremors on his head Managed to walk to the bathroom with walker States he feels off balance No syncope OBJECTIVE: Vital Signs-as noted below Exam: General-very disheveled, chronically ill-appearing patient no apparent distress Eyes-sclera nonicteric ENT-dry oral mucosa Neck-no JVD, no carotid bruit no thyromegaly trachea midline Lungs-clear to auscultate no wheeze or rales Heart-regular/tachycardic Abdomen-soft nontender, bowel sounds active Extremities-no lower extremity edema Neuro-no focal neurological deficit Lab data as noted below. ASSESSMENT & PLAN: ALCOHOL INTOXICATION/WITHDRAWAL, No evidence of active withdrawal at present Multiple admissions in past with similar symptoms Presented with tachycardia tremor shakiness/anxiety Serum alcohol level 6 Patient reports of not drinking alcohol for the past 2-3 days Continue gabapentin alcohol withdrawal protocol Continue thiamine and folic acid FEVER/CHILLS/LEUKOCYTOSIS -Symptom has resolved Treated empirically for 3 days No source of infection found Antibiotic discontinued LACTIC ACIDOSIS Possible possible secondary to severe alcohol abuse No evidence of sepsis Antibiotic level normalized with IV fluids Patient has been normal p.o. intake IV fluids discontinued AMBULATORY DYSFUNCTION/FALL Multiple episodes of fall possible secondary to alcohol intoxication Refused alcohol rehab in the past -Now willing to consider at alcohol rehab in [place] Social service consult for discharge planning PT OT eval requested HYPONATREMIA Injury to chronic alcohol abuse/SIADH Sodium at approximate baseline of 135 HYPOKALEMIA : replaced with PO and IV supplement HYPERTENSION Questionable compliance for medication Continue beta-calin Monitor in telemetry to assess -tachycardia/hypertensive urgency secondary to alcohol withdrawal CODE STATUS: Full DVT PROPHYLAXIS Subcu heparin DISPOSITION Patient wants to return home Plan to discharge home in next 24-48 hours when medically stable PT OT eval requested Social service consulted for discharge planning Vital Signs: Date Time Temp Pulse Resp B/P (MAP) Pulse Ox O2 Delivery O2 Flow Rate FiO2 02/09/18 16:00 Room Air 02/09/18 16:00 36.6 84 16 155/102 (119) 96 Room Air 02/09/18 12:45 36.9 74 16 165/105 (125) 95 Room Air 02/09/18 08:15 Room Air 02/09/18 07:10 36.7 78 16 139/93 (108) 93 Room Air 02/09/18 04:21 36.7 76 18 148/95 (112) 96 Room Air 02/09/18 02:07 145/87 (106) 02/09/18 00:31 88 180/120 02/09/18 00:30 180/120 (140) 02/08/18 23:59 Room Air 02/08/18 23:08 37.1 88 20 170/108 (128) 94 Room Air 02/08/18 19:45 36.6 99 16 148/93 (111) 97 Room Air Lab Results: Results Past 24 Hours Test 02/09/18 09:08 Range/Units White Blood Count 8.84 4.8-10.8 K/uL Red Blood Count 3.80 4.7-6.1 M/uL Hemoglobin 12.4 14.0-18.0 g/dL Hematocrit 36.2 42-52 % Mean Corpuscular Volume 95.3 80-100 fL Mean Corpuscular Hemoglobin 32.6 25-34 pg Mean Corpuscular Hemoglobin Concent 34.3 32-36 g/dl Platelet Count 134 130-400 K/uL Mean Platelet Volume 10.1 7.4-10.4 fL Neutrophils (%) (Auto) 69.3 % Lymphocytes (%) (Auto) 17.5 % Monocytes (%) (Auto) 9.3 % Eosinophils (%) (Auto) 2.7 % Basophils (%) (Auto) 0.7 % Neutrophils # (Auto) 6.13 1.4-6.5 K/uL Lymphocytes # (Auto) 1.55 1.2-3.4 K/uL Monocytes # (Auto) 0.82 0.11-0.59 K/uL Eosinophils # (Auto) 0.24 0-0.5 K/uL Basophils # (Auto) 0.06 0-0.2 K/uL RDW Standard Deviation 52.6 36.4-46.3 fL RDW Coefficient of Variation 15.0 11.5-14.5 % Immature Granulocyte % (Auto) 0.5 % Immature Granulocyte # (Auto) 0.04 0.00-0.02 K/uL Sodium Level 133 136-145 mmol/L Potassium Level 4.1 3.5-5.1 mmol/L Chloride Level 102 98-107 mmol/L Carbon Dioxide Level 24 21-32 mmol/L Anion Gap 8.0 3-11 mmol/L Blood Urea Nitrogen 5 7-18 mg/dl Creatinine 0.60 0.60-1.40 mg/dl Est Creatinine Clear Calc Drug Dose 121.8 ml/min Estimated GFR () 133.0 Estimated GFR (Non- 114.8 BUN/Creatinine Ratio 9.0 10-20 Random Glucose 86 70-99 mg/dl Lactic Acid Level 1.6 0.4-2.0 mmol/L Calcium Level 8.7 8.5-10.1 mg/dl Magnesium Level 1.8 1.8-2.4 mg/dl
[2018-02-09] MEDS ORDERED: LORAZEPAM 0.5 MG TAB PO PRN (18:15)
[2018-02-09] MEDS ORDERED: MCRK20 PO (19:02)
[2018-02-09] MEDS ORDERED: MGNO400 PO (19:02)
--- NOTE | 2018-02-09 19:07 | Discharge Instructions ---
Discharge Instructions Date of Service Feb 09, 2018. Admission Reason for Admission: Alcohol Withdrawl,Ambulatory Dysfunction Discharge Discharge Diagnosis / Problem: ALCOHOL ABUSE /Ambulatory Dysfunction ATAXIC GAIT DUE TO ALCHOHOL ABUSE Discharge Goals Goal(s): Decrease discomfort, Improve function, Increase independence, Improve disease control, Therapeutic intervention Activity Recommendations Activity Limitations: resume your previous activity . Instructions / Follow-Up Instructions / Follow-Up PLEASE ESTABLISH CARE WITH A FAMILY PHYSICIAN AND ARRANGE FOLLOW UP NEED TO QUIT DRINKING ALCOHOL YOUR BALANCE PROBLEM /LEG WEAKNESS IS DUE TO NERVE DAMAGE FORM LONG TIME HEAVY ALCOHOL DRINKING CONTINUING TO DRINK HEAVILY WILL LEAD TO LIVER FAILURE /HEART AND KIDNEY FAILURE /STROKE - PLEASE FOLLOW UP WITH YOUR [employer] FOR HELP WITH ALCOHOL REHAB Current Hospital Diet Patient's current hospital diet: Regular Diet Discharge Diet Recommended Diet: Regular Diet Pending Studies Studies pending at discharge: no Medical Emergencies . Who to Call and When: Medical Emergencies: If at any time you feel your situation is an emergency, please call 911 immediately. . Non-Emergent Contact Non-Emergency issues call your: Primary Care Provider . . "Provider Documentation" section prepared by Neisha Norman. .
[2018-02-10] MEDS: ACETAMINOPHEN 325 MG TAB PO PRN ×2 (01:50→19:36)
[2018-02-10 04:38] VITALS: BP 156/102; PULSE 74; TEMP 36.9; O2SAT 96
[2018-02-10] MEDS: HEPARIN SOD 5000 UNIT/0.5 ML CARP SQ SCH ×3 (06:17→20:33)
[2018-02-10 07:12] VITALS: BP_SYST 168; BP_SYST 171; BP_DIAS 101; PULSE 86; TEMP 36.8; O2SAT 97
[2018-02-10] MEDS: METOPROLOL TARTRATE 1 MG/ML VIAL IV PRN (07:32)
[2018-02-10 08:00] VITALS: O2SAT 97
[2018-02-10] MEDS: POTASSIUM CHLORIDE 20 MEQ TABCR PO SCH ×2 (08:24→20:30)
[2018-02-10] MEDS: MAGNESIUM OXIDE 400 MG TAB PO SCH ×2 (08:25→20:30)
[2018-02-10] MEDS: THIAMINE HCL 100 MG TAB PO SCH (08:25)
[2018-02-10] MEDS: MULTIVITAMIN TAB PO SCH (09:22)
[2018-02-10 11:30] VITALS: BP 167/104; PULSE 71; TEMP 36.6; O2SAT 96
[2018-02-10] MEDS ORDERED: GABAPENTIN 600MG X1 DOSE PO SCH (12:00)
[2018-02-10] MEDS ORDERED: CLONIDINE HCL 0.1 MG TAB PO PRN (12:00)
[2018-02-10 15:52] VITALS: BP 146/100; PULSE 81; TEMP 36.5; O2SAT 96
--- NOTE | 2018-02-10 18:18 | Progress Note ---
Internal Med Progress Note Date of Service: Feb 10, 2018. Provider Documentation: SUBJECTIVE: No evidence of alcohol withdrawal, no tremor no anxiety Continues to use say his legs are very weak, very difficult for him to walk to the bathroom No nausea vomiting no fever chills No complaint of chest pain or shortness of breath OBJECTIVE: Vital Signs-as noted below Exam: General-very disheveled, chronically ill-appearing patient no apparent distress Eyes-sclera nonicteric ENT-dry oral mucosa Neck-no JVD, no carotid bruit no thyromegaly trachea midline Lungs-clear to auscultate no wheeze or rales Heart-regular/tachycardic Abdomen-soft nontender, bowel sounds active Extremities-no lower extremity edema Neuro-no focal neurological deficit Lab data as noted below. ASSESSMENT & PLAN: ALCOHOL INTOXICATION/WITHDRAWAL, -Remains stable hemodynamically No evidence of withdrawal vitals are stable telemetry discontinued Multiple admissions in past with similar symptoms Presented with tachycardia tremor shakiness/anxiety Serum alcohol level 6 Patient reports of not drinking alcohol for the past 2-3 days Continue gabapentin alcohol withdrawal protocol Continue thiamine and folic acid FEVER/CHILLS/LEUKOCYTOSIS -Symptom has resolved Treated empirically for 3 days No source of infection found Antibiotic discontinued LACTIC ACIDOSIS resolved secondary to severe alcohol abuse No evidence of sepsis lactic acid level normalized with IV fluids Patient has been normal p.o. intake IV fluids discontinued AMBULATORY DYSFUNCTION/FALL Multiple episodes of fall possible secondary to alcohol intoxication Refused alcohol rehab in the past -Now willing to consider at alcohol rehab in [place] Social service consult for discharge planning cont PT/Ot HYPONATREMIA resolved Injury to chronic alcohol abuse/SIADH Sodium at approximate baseline of 135 HYPOKALEMIA : corrected HYPERTENSION Questionable compliance for medication ordered for PRN Clonidine schedule Atenolol 50 mg daily ordered CODE STATUS: Full DVT PROPHYLAXIS Subcu heparin DISPOSITION Patient wants to return home Plan to discharge home in next 24-48 hours when medically stable Social service consulted for discharge planning Vital Signs: Date Time Temp Pulse Resp B/P (MAP) Pulse Ox O2 Delivery O2 Flow Rate FiO2 02/12/18 08:00 Room Air 02/12/18 07:34 36.8 74 20 152/88 (109) 94 02/12/18 00:30 Room Air 02/11/18 22:24 36.9 67 19 148/90 (109) 96 Room Air 7/29/18 19:03 36.8 65 16 160/90 (113) 96 Room Air 02/11/18 16:00 Room Air 02/11/18 15:22 36.8 71 16 154/108 (123) 95 Room Air
[2018-02-10 23:01] VITALS: BP 143/98; PULSE 72; TEMP 36.6; O2SAT 96
[2018-02-11] MEDS: HEPARIN SOD 5000 UNIT/0.5 ML CARP SQ SCH ×3 (06:11→20:56)
[2018-02-11 07:13] VITALS: BP 128/80; PULSE 62; TEMP 36.9; O2SAT 95
[2018-02-11] MEDS: MAGNESIUM OXIDE 400 MG TAB PO SCH ×2 (08:04→20:56)
[2018-02-11] MEDS: THIAMINE HCL 100 MG TAB PO SCH (08:04)
[2018-02-11] MEDS: MULTIVITAMIN TAB PO SCH (08:04)
[2018-02-11] MEDS: POTASSIUM CHLORIDE 20 MEQ TABCR PO SCH ×2 (08:04→20:56)
[2018-02-11] MEDS: ACETAMINOPHEN 325 MG TAB PO PRN (10:41)
[2018-02-11 15:22] VITALS: BP 154/108; PULSE 71; TEMP 36.8; O2SAT 95
[2018-02-11 19:03] VITALS: BP 160/90; PULSE 65; TEMP 36.8; O2SAT 96
[2018-02-11 22:24] VITALS: BP 148/90; PULSE 67; TEMP 36.9; O2SAT 96
[2018-02-12] MEDS: HEPARIN SOD 5000 UNIT/0.5 ML CARP SQ SCH (05:53)
[2018-02-12] MEDS: MULTIVITAMIN TAB PO SCH (07:23)
[2018-02-12] MEDS: MAGNESIUM OXIDE 400 MG TAB PO SCH (07:23)
[2018-02-12] MEDS: POTASSIUM CHLORIDE 20 MEQ TABCR PO SCH (07:23)
[2018-02-12] MEDS: ACETAMINOPHEN 325 MG TAB PO PRN (07:23)
[2018-02-12] MEDS: THIAMINE HCL 100 MG TAB PO SCH (07:24)
[2018-02-12 07:34] VITALS: BP 152/88; PULSE 74; TEMP 36.8; O2SAT 94
--- NOTE | 2018-02-12 12:08 | Progress Note ---
Internal Med Progress Note Date of Service: Jan. Provider Documentation: LATE ENTRY , PT WAS SEEN APPROX 1600 YESTERDAY 02/11/18 SUBJECTIVE: says he is still weak , legs are not strong enough had to use the walker , which is difficult to use on discharge as he lives OBJECTIVE: Vital Signs-as noted below Exam: General-very disheveled, chronically ill-appearing patient no apparent distress Eyes-sclera nonicteric ENT-dry oral mucosa Neck-no JVD, no carotid bruit no thyromegaly trachea midline Lungs-clear to auscultate no wheeze or rales Heart-regular/tachycardic Abdomen-soft nontender, bowel sounds active Extremities-no lower extremity edema Neuro-no focal neurological deficit Lab data as noted below. ASSESSMENT & PLAN: ALCOHOL INTOXICATION/WITHDRAWAL, multiple admissions in past with similar scenario refused to seek help and signed out form Alcohol rehab admitted with alcohol intoxication /withdrawal symptom Presented with tachycardia tremor shakiness/anxiety Serum alcohol level 6 treated with Neurontin ETOH withdrawal protocol no evidence of withdrawal in past 2-3 days stable to be discharged home today counselled to seek help for alcohol addiction ATAXIC GAIT /DUE TO CHRONIC ALCOHOL ABUSE pt complains of weakness , poor balance now has to use a walker all the time walked on the hallway -with walker , has slow /shuffled gait ( which is his baseline ) pt is updated -his balance /gait disturbance is due to ETOH abuse need to quit drinking to prevent it to get worse cont Thiamine /Folic acid FEVER/CHILLS/LEUKOCYTOSIS -Symptom has resolved Treated empirically for 3 days No source of infection found Antibiotic discontinued LACTIC ACIDOSIS resolved with Iv fluid secondary to alcohol abuse No evidence of sepsis Patient has been normal p.o. intake IV fluids discontinued HYPONATREMIA improved due to chronic alcohol abuse/SIADH Sodium at approximate baseline of 135 HYPOKALEMIA : corrected HYPERTENSION BP improved Questionable compliance for medication ordered for PRN Clonidine schedule Atenolol 50 mg daily ordered CODE STATUS: Full DVT PROPHYLAXIS Subcu heparin DISPOSITION possible discharge home tomorrow Social service consulted for discharge planning Vital Signs: Date Time Temp Pulse Resp B/P (MAP) Pulse Ox O2 Delivery O2 Flow Rate FiO2 02/12/18 08:00 Room Air 02/12/18 07:34 36.8 74 20 152/88 (109) 94 02/12/18 00:30 Room Air 02/11/18 22:24 36.9 67 19 148/90 (109) 96 Room Air 02/11/18 19:03 36.8 65 16 160/90 (113) 96 Room Air 02/11/18 16:00 Room Air 02/11/18 15:22 36.8 71 16 154/108 (123) 95 Room Air
[2018-02-12] MEDS ORDERED: TNR50 PO (12:31)
--- NOTE | 2018-02-12 12:34 | Discharge Summary ---
Discharge Summary Date of Service Feb 12, 2018. Discharge Summary Admission Date: Feb 06, 2018 at 20:16 Discharge Date: Feb 12, 2018 Discharge Disposition: Home Principal Diagnosis: ALCOHOL ABUSE /Ambulatory Dysfunction ATAXIC GAIT DUE TO ALCOHOL ABUSE Medication Reconciliation New Medications: Atenolol (Atenolol) 50 Mg Tab 50 MG PO QAM for 30 Days, #30 TAB 2 Refills Magnesium Oxide (Magnesium-Oxide) 400 Mg Tab 400 MG PO DAILY for 30 Days, #30 TAB Potassium Chloride (Klor-Con M20) 20 Meq Tabcr 20 MEQ PO DAILY for 30 Days, #30 TABS Continued Medications: Folic Acid (Folvite) 1 Mg Tab 1 MG PO DAILY Multivitamin (Multivitamin) Tab 1 TAB PO DAILY Admission Information HPI (per Admitting provider): DATE OF ADMISSION: 02/06/2018 CHIEF COMPLAINT: Alcoholism, ambulatory dysfunction. HISTORY OF PRESENT ILLNESS: This is a 52-year-old male with past medical history significant for recurrent admissions for alcoholism, alcohol withdrawal, ambulatory dysfunction, history of dysphagia, history of oesophageal strictures status post dilatation in the past, frequent falls, hypertension, presents because of ambulatory dysfunction and shakiness. The patient is a poor historian, very hard to hear. He is shaky, seems to be in alcohol withdrawal. He says his last drink was a couple of days ago. Alcohol level was 6 in the ER. The patient says he went to [facility] and was discharged and supposed to go to alcohol rehab and could not get a clear history but seems like he was having lot of difficulty ambulating and his friend brought him here for further care and patient says [facility] told him to go to [facility] to get a better care. The patient has lot of shakiness and complains of feeling chilly, but denies headache. He says he was nauseous earlier. Complains of some pain in the legs and says he is having lot of difficulty ambulating. Denies any chest pain. No belly pain. Could not get much history from him as he is constantly shaking and seems to have some hard time comprehending too. He says he is chilly and it generally happens with his withdrawals. ALLERGIES: PENICILLIN. PAST MEDICAL HISTORY: As mentioned above. PAST SURGICAL HISTORY: EGD and dilatation of the esophageal stricture. MEDICATIONS: Thiamine, folic acid, multivitamin. He is also supposed to be on Flomax and salt tablets and atenolol, but looks like not taking. FAMILY HISTORY: Hypertension. SOCIAL HISTORY: No smoking history. Alcohol heavy drinking daily. No drug use. Single and employed, lives alone. IMMUNIZATIONS: Unknown. Physical Exam (per Admitting): REVIEW OF SYSTEMS: As per HPI. Rest of symptoms could not be obtained at this time. PHYSICAL EXAMINATION: GENERAL: Patient is of moderate built, some shaking. VITAL SIGNS: Temperature 37.5, pulse 120, respiratory rate 18, blood pressure 134/115, oxygen 98% on room air. HEENT: No pallor, no icterus. NECK: No JVD, no neck masses. CARDIOVASCULAR: S1, S2 heard. Tachycardia. No murmurs, regular. RESPIRATORY SYSTEM: Normal AP diameter. No accessory muscle use. No wheezing, no crackles. ABDOMEN: Soft, bowel sounds present. Nontender. No distention. CENTRAL NERVOUS SYSTEM: Alert and awake, very shaky. EXTREMITIES: Mild pedal edema. No erythema seen. Hospital Course No symptoms of withdrawal, no confusion Using walker(uses walker at baseline) to get out of bed to bathroom, walking on the hallway Stable to be discharged home today Exam: General-very disheveled, chronically ill-appearing patient no apparent distress Eyes-sclera nonicteric ENT-dry oral mucosa Neck-no JVD, no carotid bruit no thyromegaly trachea midline Lungs-clear to auscultate no wheeze or rales Heart-regular/tachycardic Abdomen-soft nontender, bowel sounds active Extremities-no lower extremity edema Neuro-no focal neurological deficit ALCOHOL INTOXICATION/WITHDRAWAL, -Remains stable hemodynamically No evidence of withdrawal vitals are stable telemetry discontinued Multiple admissions in past with similar symptoms Presented with tachycardia tremor shakiness/anxiety Serum alcohol level 6 Patient reports of not drinking alcohol for the past 2-3 days Completed gabapentin alcohol withdrawal protocol Continue thiamine and folic acid FEVER/CHILLS/LEUKOCYTOSIS -Symptom has resolved Treated empirically for 3 days No source of infection found Antibiotic discontinued LACTIC ACIDOSIS resolved secondary to severe alcohol abuse No evidence of sepsis lactic acid level normalized with IV fluids Patient has been normal p.o. intake IV fluids discontinued AMBULATORY DYSFUNCTION/FALL Multiple episodes of fall possible secondary to alcohol intoxication Refused alcohol rehab in the past -Now willing to consider at alcohol rehab in [place] Social service consult for discharge planning Had PT OT evaluation, stable to be discharged home HYPONATREMIA resolved Injury to chronic alcohol abuse/SIADH Sodium at approximate baseline of 135 HYPOKALEMIA : corrected HYPERTENSION Questionable compliance for medication ordered for PRN Clonidine schedule Atenolol 50 mg daily ordered CODE STATUS: Full DVT PROPHYLAXIS Subcu heparin DISPOSITION Discharge home today Social service consulted for discharge planning Total time spent on discharge = 40 MINS This includes examination of the patient, discharge planning, medication reconciliation, and communication with other providers. Discharge Instructions Discharge Instructions Date of Service Feb 09, 2018. Admission Reason for Admission: Alcohol Withdrawal,Ambulatory Dysfunction Discharge Discharge Diagnosis / Problem: ALCOHOL ABUSE /Ambulatory Dysfunction ATAXIC GAIT DUE TO ALCOHOL ABUSE Discharge Goals Goal(s): Decrease discomfort, Improve function, Increase independence, Improve disease control, Therapeutic intervention Activity Recommendations Activity Limitations: resume your previous activity . Instructions / Follow-Up Instructions / Follow-Up PLEASE ESTABLISH CARE WITH A FAMILY PHYSICIAN AND ARRANGE FOLLOW UP NEED TO QUIT DRINKING ALCOHOL YOUR BALANCE PROBLEM /LEG WEAKNESS IS DUE TO NERVE DAMAGE FORM LONG TIME HEAVY ALCOHOL DRINKING CONTINUING TO DRINK HEAVILY WILL LEAD TO LIVER FAILURE /HEART AND KIDNEY FAILURE /STROKE - PLEASE FOLLOW UP WITH YOUR TRIP RIDER FOR HELP WITH ALCOHOL REHAB Current Hospital Diet Patient's current hospital diet: Regular Diet Discharge Diet Recommended Diet: Regular Diet Pending Studies Studies pending at discharge: no Medical Emergencies . Who to Call and When: Medical Emergencies: If at any time you feel your situation is an emergency, please call 911 immediately. . Non-Emergent Contact Non-Emergency issues call your: Primary Care Provider . . "Provider Documentation" section prepared by Neisha Norman. .
[2018-02-12 13:11] VITALS: BP 152/88; PULSE 74; TEMP 36.8; O2SAT 94
== END 2018-02-12 13:45 | disposition home health service (06) | DRG 897 ==
LOC: C.EDB 16:48 → C.MED 20:16 → ENRESERV 20:31
PROVIDERS: ADMIT Hospitalist; ATTEND Hospitalist
DX: F10.239 Alcohol dependence with withdrawal, unspecified (principal); E87.1 Hypo-osmolality and hyponatremia; E87.2 Acidosis; F10.229 Alcohol dependence with intoxication, unspecified; R50.9 Fever, unspecified; D72.829 Elevated white blood cell count, unspecified; R26.0 Ataxic gait; R29.6 Repeated falls; E87.6 Hypokalemia; I10 Essential (primary) hypertension; N40.0 Benign prostatic hyperplasia without lower urinary tract symptoms; Z91.14 Patient's other noncompliance with medication regimen; Z88.0 Allergy status to penicillin

== ENCOUNTER 2018-08-18 17:31 | Inpatient (IN) ==
--- NOTE | 2018-08-18 18:24 | CT Scan Report ---
CT head/brain wo con CLINICAL HISTORY: 53 years-old Male presenting with fall, [facility]. TECHNIQUE: Multidetector CT imaging of the head was performed without the use of intravenous contrast . IV contrast: None. One or more dose lowering techniques were used consistent with the principles of ALARA (as low as reasonably achievable), including automatic exposure control, mA or kV adjustment t o individual patient size, and/or use of iterative reconstruction. COMPARISON: 07/31/2018. CT DOSE (mGy.cm): The estimated cumulative dose is 1597.44. FINDINGS: Utility Engineer topogram: Unremarkable. Proportional ventricular and sulcal prominence, greater than expected for age-related parenchymal vol ume loss. No hemorrhage. Periventricular and subcortical white matter hypoattenuation, nonspecific bu t likely indicative of chronic small vessel ischemic change. 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 No acute territorial infarct. No mass effect or midline shift. No extra-axial fluid collection. Paranasal sinuses and mastoid air cells clear. Calvarium intact. Soft tissue swelling with subjacent trace subgaleal hematoma in the right paramedian frontal scalp. IMPRESSION: 1. Right paramedian scalp contusion with trace subgaleal hematoma. Advanced diffuse parenchymal volu me loss suggesting underlying neurodegenerative disease or chronic toxin exposure (for example, EtOH) . 2. No acute intracranial pathology. 3. Chronic small vessel ischemic change and old lacunar infarct in the left caudate head. Electronically signed by: Romeo Lema M.D. 08/18/2018 6:22 PM
--- NOTE | 2018-08-18 18:27 | CT Scan Report ---
CT cervical spine wo con CLINICAL HISTORY: 53 years-old Male presenting with fall, [facility]. TECHNIQUE: Multidetector CT of the cervical spine was performed without the use of intravenous contra st. IV contrast: None. One or more dose lowering techniques were used consistent with the principles of ALARA (as low as reasonably achievable), including automatic exposure control, mA or kV adjustment to individual patient size, and/or use of iterative reconstruction. COMPARISON: 02/15/2017. CT DOSE (mGy.cm): The estimated cumulative dose is 1597.44 mGy.cm. FINDINGS: Sports Medicine [employer]seur topogram: Unremarkable. Straightening of normal cervical lordosis likely due to multilevel degenerative changes. Trace retrol isthesis of C4 on C5. Vertebral bodies otherwise demonstrate normal height and alignment. Moderate to severe intervertebral disc height loss at C4-5 and to a slightly lesser extent at C3-4 and C5-6. Dis c osteophyte complexes from C3-4 through C6-7 with posterior bony spurring to a mild degree at severa l levels. There are degrees of osseous neural foraminal narrowing results largely from uncovertebral hypertrophy. No acute fracture or subluxation. Visualized portion the skull base intact. IMPRESSION: 1. No acute osseous injury of the cervical spine. 2. Multilevel degenerative changes. Electronically signed by: Romeo Lema M.D. 08/18/2018 6:26 PM
[2018-08-18 18:46] LABS: Basophils # (auto) 0.13 K/uL (0-0.2); Basophils % (auto) 1.2 %; Eosinophils # (auto) 0.22 K/uL (0-0.5); Hematocrit (blood only) 39.6 % (42-52); Hemoglobin 13.9 g/dL (14.0-18.0); Immature Granulocytes # (auto) 0.06 K/uL (0.00-0.02); Immature Granulocytes % (auto) 0.5 %; Lymphocytes # (auto) 3.67 K/uL (1.2-3.4); Lymphocytes % (auto) 33.1 %; Mean Corpuscular Hgb Conc 35.1 g/dL (32-36); Mean Corpuscular Volume 96.6 fL (80-100); Mean Platelet Volume 8.2 fL (7.4-10.4); Monocytes # (auto) 0.71 K/uL (0.11-0.59); Monocytes % (auto) 6.4 %; Neutrophils # (auto) 6.29 K/uL (1.4-6.5); Neutrophils % (auto) 56.8 %; Platelet Count 695 K/uL (130-400); White Blood Count 11.08 K/uL (4.8-10.8)
[2018-08-18] MEDS ORDERED: DIPHTHERIA/TETANUS/PERTUSSIS 0.5 ML SYR/VIAL IM ONE (18:53)
[2018-08-18 19:21] LABS: Albumin Level 3.6 gm/dl (3.4-5.0); BUN Creatinine Ratio 10.2 (10-20); Creatinine Clr Calc Pharmacy 119.2 ml/min; Est GFR (African American) 134.9; Est GFR (Non-African American) 116.4; Potassium 3.6 mmol/L (3.5-5.1)
[2018-08-18 19:24] LABS: Albumin Globulin Ratio 0.7 (0.9-2); Bilirubin,Total 0.2 mg/dl (0.2-1); Globulin 4.8 gm/dl (2.5-4.0); Total Protein 8.4 gm/dl (6.4-8.2)
[2018-08-18] MEDS ORDERED: XYLOCAINE 1%/SOD BICARB 20 ML VIAL INFIL ONE (19:27)
--- NOTE | 2018-08-18 20:20 | Emergency Department Note ---
ED Provider Note I was asked by Dr. Reardon to repair the patient's lacerations on the forehead. The patient has a jagged laceration to the front of the forehead. The edges gape apart with traction. Verbal consent was obtained to perform the procedure. Using sterile technique the wound was cleaned with Betadine. The area was sterilely draped. 3 ml of 1 % buffered lidocaine was used to anesthetize the laceration. Once the patient was anesthetized, the wound was copiously irrigated under pressure with sterile saline. The wound was explored and there were no deep structures injured such as bone, or significant blood vessels. The laceration was repaired using 3 simple interrupted 5-0 nylon sutures with the wound edges being well approximated.. Hemostasis was achieved. The area was cleaned with sterile saline and dressed with bacitracin ointment and bandage. During the repair, the patient, in his intoxicated state, became uncooperative demanding that I stop because he needed to use the restroom. For this reason, only 3 sutures were used to repair the wound. Wound edge approximation was satisfactory and hemostasis was achieved. Impression & Plan Alcohol intoxication, Closed head injury, Forehead laceration Past Med/Surg History Medical History Chronic hyponatremia History of esophageal stricture History of esophageal dilatation Hx of fracture of hip Hypertension (Chronic) Alcoholism (Chronic) Ambulatory dysfunction (Chronic) Dysphagia (Chronic) "h/o esophageal stricture s/p dilation in past" Frequent falls (Chronic) Surgical History History of esophagogastroduodenoscopy (EGD) History of hip surgery s/p fall and fx Family History Other Cancer HTN (hypertension) Social History marital status: Single Current Living Situation: Alone Other Information That Helps Us Care for You: No Feels Safe at Home: Yes Safety Concerns: Feels Safe At This Time Smoking Status: Former smoker Do You Dip or Chew Tobacco: No Hx Alcohol Use: Yes Alcohol type: beer Alcohol Intake Frequency: 3 or more drinks per day Alcohol Intake Frequency Comment: 7-10 beers a day, uncertain which kind of beer Hx Substance Use: No Beliefs That Will Affect Care: None Preferred Language: Marshallese Communication Ability: Effective 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: No Results & Data Vital Signs Vital Signs - 24 hr 08/18/18 17:41 08/18/18 18:45 08/18/18 20:20 Temperature 35.4 C L 36.1 C L Temperature Source Oral Oral Sepsis Recent Fever Within 48 Hours No Sepsis New/Unexplained Change in Mental Status No Sepsis Action Taken by Nursing No Action Required Pulse Rate 72 Pulse Rate [Right Finger] 66 73 Pulse Rhythm Regular Pulse Rhythm [Right Finger] Pulse Strength Normal Respiratory Rate 18 22 18 Respiratory Effort / Characteristics Non-Labored Respiratory Depth Normal Respiratory Pattern Regular Blood Pressure 127/84 Blood Pressure [Right Arm] 123/80 115/100 Blood Pressure Mean 98 Blood Pressure Mean [Right Arm] 94 105 Blood Pressure Position Lying Pulse Oximetry 98 96 98 Oxygen Delivery Method Room Air 08/18/18 21:43 08/18/18 21:44 08/18/18 22:32 Temperature 36.7 C Temperature Source Oral Sepsis Recent Fever Within 48 Hours Sepsis New/Unexplained Change in Mental Status Sepsis Action Taken by Nursing Pulse Rate Pulse Rate [Right Finger] 78 80 Pulse Rhythm Pulse Rhythm [Right Finger] Pulse Strength Respiratory Rate 17 18 Respiratory Effort / Characteristics Respiratory Depth Respiratory Pattern Blood Pressure Blood Pressure [Right Arm] 93/63 L 146/68 H Blood Pressure Mean Blood Pressure Mean [Right Arm] 73 94 Blood Pressure Position Pulse Oximetry 97 93 Oxygen Delivery Method Room Air 08/18/18 23:26 Temperature 36.3 C L Temperature Source Oral Sepsis Recent Fever Within 48 Hours Sepsis New/Unexplained Change in Mental Status Sepsis Action Taken by Nursing Pulse Rate 81 Pulse Rate [Right Finger] 74 Pulse Rhythm Pulse Rhythm [Right Finger] Regular Pulse Strength Respiratory Rate 18 Respiratory Effort / Characteristics Non-Labored Spontaneous Respiratory Depth Normal Respiratory Pattern Regular Blood Pressure Blood Pressure [Right Arm] 118/74 Blood Pressure Mean Blood Pressure Mean [Right Arm] 88 Blood Pressure Position Pulse Oximetry 95 Oxygen Delivery Method Room Air Laboratory Data Result diagrams: 08/18/18 23:49 08/18/18 18:35 Lab Results 08/18/18 08/18/18 08/18/18 Range/Units 18:35 18:35 18:35 WBC 11.08 H (4.8-10.8) K/uL RBC 4.10 L (4.7-6.1) M/uL Hgb 13.9 L (14.0-18.0) g/dL Hct 39.6 L (42-52) % MCV 96.6 (80-100) fL MCH 33.9 (25-34) pg MCHC 35.1 (32-36) g/dL RDW Std Deviation 46.0 (36.4-46.3) fL RDW Coeff of Luis 13.0 (11.5-14.5) % Plt Count 695 H (130-400) K/uL MPV 8.2 (7.4-10.4) fL Immature Gran % (Auto) 0.5 % Neut % (Auto) 56.8 % Lymph % (Auto) 33.1 % Titus % (Auto) 6.4 % Eos % (Auto) 2.0 % Baso % (Auto) 1.2 % Immature Gran # (Auto) 0.06 H (0.00-0.02) K/uL Neut # (Auto) 6.29 (1.4-6.5) K/uL Lymph # (Auto) 3.67 H (1.2-3.4) K/uL Titus # (Auto) 0.71 H (0.11-0.59) K/uL Eos # (Auto) 0.22 (0-0.5) K/uL Baso # (Auto) 0.13 (0-0.2) K/uL Sodium 134 L (136-145) mmol/L Potassium 3.6 (3.5-5.1) mmol/L Chloride 99 (98-107) mmol/L Carbon Dioxide 22 (21-32) mmol/L Anion Gap 13.0 H (3-11) BUN 6 L (7-18) mg/dl Creatinine 0.57 L (0.6-1.4) mg/dl Est Cr Clr Drug Dosing 119.2 ml/min Est GFR ( Amer) 134.9 Est GFR (Non-Af Amer) 116.4 BUN/Creatinine Ratio 10.2 (10-20) Glucose 73 (70-99) mg/dl Calcium 9.0 (8.5-10.1) mg/dl Magnesium 2.3 (1.8-2.4) mg/dl Total Bilirubin 0.2 (0.2-1) mg/dl AST 32 (15-37) U/L ALT 35 (12-78) U/L Alkaline Phosphatase 131 H (45-117) U/L Total Protein 8.4 H (6.4-8.2) gm/dl Albumin 3.6 (3.4-5.0) gm/dl Globulin 4.8 H (2.5-4.0) gm/dl Albumin/Globulin Ratio 0.7 L (0.9-2) Procalcitonin TSH 1.350 (0.300-4.500) uIu/ml Urine Color Urine Appearance (Clear) Urine pH (4.5-7.5) Ur Specific [place] (1.000-1.030) Urine Protein (Negative) Urine Glucose (UA) (Negative) Urine Ketones (Negative) Urine Blood (Negative) Urine Nitrite (Negative) Urine Bilirubin (Negative) Urine Urobilinogen (Negative) Ur Leukocyte Esterase (Negative) Ethyl Alcohol mg/dL 328.8 H (0-3) mg/dl 08/18/18 08/18/18 08/18/18 Range/Units 18:40 20:52 21:36 WBC (4.8-10.8) K/uL RBC (4.7-6.1) M/uL Hgb (14.0-18.0) g/dL Hct (42-52) % MCV (80-100) fL MCH (25-34) pg MCHC (32-36) g/dL RDW Std Deviation (36.4-46.3) fL RDW Coeff of Luis (11.5-14.5) % Plt Count (130-400) K/uL MPV (7.4-10.4) fL Immature Gran % (Auto) % Neut % (Auto) % Lymph % (Auto) % Titus % (Auto) % Eos % (Auto) % Baso % (Auto) % Immature Gran # (Auto) (0.00-0.02) K/uL Neut # (Auto) (1.4-6.5) K/uL Lymph # (Auto) (1.2-3.4) K/uL Titus # (Auto) (0.11-0.59) K/uL Eos # (Auto) (0-0.5) K/uL Baso # (Auto) (0-0.2) K/uL Sodium (136-145) mmol/L Potassium (3.5-5.1) mmol/L Chloride (98-107) mmol/L Carbon Dioxide (21-32) mmol/L Anion Gap (3-11) BUN (7-18) mg/dl Creatinine (0.6-1.4) mg/dl Est Cr Clr Drug Dosing ml/min Est GFR ( Amer) Est GFR (Non-Af Amer) BUN/Creatinine Ratio (10-20) Glucose (70-99) mg/dl Calcium (8.5-10.1) mg/dl Magnesium (1.8-2.4) mg/dl Total Bilirubin (0.2-1) mg/dl AST (15-37) U/L ALT (12-78) U/L Alkaline Phosphatase (45-117) U/L Total Protein (6.4-8.2) gm/dl Albumin (3.4-5.0) gm/dl Globulin (2.5-4.0) gm/dl Albumin/Globulin Ratio (0.9-2) Procalcitonin Cancelled < 0.05 TSH (0.300-4.500) uIu/ml Urine Color Yellow Urine Appearance Clear (Clear) Urine pH 6.0 (4.5-7.5) Ur Specific [place] 1.008 (1.000-1.030) Urine Protein Negative (Negative) Urine Glucose (UA) Negative (Negative) Urine Ketones Negative (Negative) Urine Blood Negative (Negative) Urine Nitrite Negative (Negative) Urine Bilirubin Negative (Negative) Urine Urobilinogen Negative (Negative) Ur Leukocyte Esterase Negative (Negative) Ethyl Alcohol mg/dL (0-3) mg/dl 08/18/18 Range/Units 23:49 WBC (4.8-10.8) K/uL RBC (4.7-6.1) M/uL Hgb 11.9 L (14.0-18.0) g/dL Hct 35.4 L (42-52) % MCV (80-100) fL MCH (25-34) pg MCHC (32-36) g/dL RDW Std Deviation (36.4-46.3) fL RDW Coeff of Luis (11.5-14.5) % Plt Count (130-400) K/uL MPV (7.4-10.4) fL Immature Gran % (Auto) % Neut % (Auto) % Lymph % (Auto) % [place] % (Auto) % Eos % (Auto) % Baso % (Auto) % Immature Gran # (Auto) (0.00-0.02) K/uL Neut # (Auto) (1.4-6.5) K/uL Lymph # (Auto) (1.2-3.4) K/uL Titus # (Auto) (0.11-0.59) K/uL Eos # (Auto) (0-0.5) K/uL Baso # (Auto) (0-0.2) K/uL Sodium (136-145) mmol/L Potassium (3.5-5.1) mmol/L Chloride (98-107) mmol/L Carbon Dioxide (21-32) mmol/L Anion Gap (3-11) BUN (7-18) mg/dl Creatinine (0.6-1.4) mg/dl Est Cr Clr Drug Dosing ml/min Est GFR ( Amer) Est GFR (Non-Af Amer) BUN/Creatinine Ratio (10-20) Glucose (70-99) mg/dl Calcium (8.5-10.1) mg/dl Magnesium (1.8-2.4) mg/dl Total Bilirubin (0.2-1) mg/dl AST (15-37) U/L ALT (12-78) U/L Alkaline Phosphatase (45-117) U/L Total Protein (6.4-8.2) gm/dl Albumin (3.4-5.0) gm/dl Globulin (2.5-4.0) gm/dl Albumin/Globulin Ratio (0.9-2) Procalcitonin TSH (0.300-4.500) uIu/ml Urine Color Urine Appearance (Clear) Urine pH (4.5-7.5) Ur Specific [place] (1.000-1.030) Urine Protein (Negative) Urine Glucose (UA) (Negative) Urine Ketones (Negative) Urine Blood (Negative) Urine Nitrite (Negative) Urine Bilirubin (Negative) Urine Urobilinogen (Negative) Ur Leukocyte Esterase (Negative) Ethyl Alcohol mg/dL (0-3) mg/dl Administered Medications Multivitamins 10 ml/ Thiamine HCl 100 mg/ Folic Acid 1 mg/Sodium Chloride 1, 011.2 mls @ 100 mls/hr IV .[id number] Stop: 08/19/18 07:36 Last Admin: 08/18/18 21:41 Dose: 100 mls/hr Oxycodone HCl (Roxicodone Immediate Rel) 5 mg PO Q4H PRN PRN Reason: Pain Stop: 09/01/18 23:25 Last Admin: 08/18/18 23:58 Dose: 5 mg Discontinued Medications Diphtheria/Pertussis/Tetanus Vacc (Adacel) 0.5 ml IM .ONCE ONE Stop: 08/18/18 18:54 Last Admin: 08/18/18 18:58 Dose: 0.5 ml Lidocaine HCl (Buffered Lidocaine 1%) 20 ml INFIL NOW ONE Stop: 08/18/18 19:28 Last Admin: 08/18/18 19:30 Dose: 20 ml Discharge Plan Visit Data *Final* Discharge Date/Time: 08/18/18 22:39 Chief Complaint: Fall Stated Complaint: fall/ head pain/lac ED Provider: Marcia Reardon Discharge Problem: Alcohol intoxication, Closed head injury, Forehead laceration Patient Disposition: Admitted As Inpatient Discharge Instructions Interventions: ED Discharge Assessment Last Done: 08/18/18 22:39
[2018-08-18 20:30] LABS: Magnesium 2.3 mg/dl (1.8-2.4)
--- NOTE | 2018-08-18 20:45 | History & Physical Report ---
Date of Service August 18, 2018 Assessment & Plan (1) Fall: This is a 53 year old M with significant PMH of ETOH Abuse, homelessness, HTN, Chronic hyponatremia, freq falls who presents to [facility] ED seconary to fall and hit head this evening. In ED pt noted to be intoxicated with Ethyl alcohol level 328.8. Pt suffered Frontal forehead laceration x 2 which were repaired; however CT scan brain revealed trace subgaleal hematoma. Given intoxication, recent fall, subgaleal hematoma and pt residing in [facility] patient will be admitted for further observation and placement. -admit to med/surg under observation Please see Dr. Arana addendum regarding further assessment and plan (2) Subgaleal hemorrhage: -neuro checks accordingly -avoid other trauma, ETOH cessation (3) Alcohol intoxication: -alcohol cessation recommended -gabapentin taper given ETOH abuse (4) Alcohol abuse: -as above (5) Ambulatory dysfunction: -PT/OT when appropriate (6) Hyponatremia: -Na 134, previous admission it was recommended patient follow a fluid restriction 1200ml with NACL tabs 1g tid (7) Dementia: -Per CT: Advanced diffuse parenchymal volume loss suggesting underlying neurodegenerative disease or chronic toxin exposure (for example, EtOH). History of Present Illness Chief Complaint: Fall secondary to intoxication. Primary Care Provider: NO PCP This is a 53 year old M with significant PMH of ETOH Abuse, homelessness,HTN, Chronic hyponatremia, freq falls who presents to [facility] ED seconary to fall and hit head this evening. Patient currently residing at [facility] room 119. Drinks 7-10 beers daily, last drink today. Was going to beer store and while walking fell off sidewalk and struck head. Does not recall falling and hitting head. Complains of headache, dizziness, neck pain, but denies blurry vision, diplopia, change in hearing, recent f/c/s, URI sx, chest pain, sob, n/v/d. Of note pt recently hospitalized 07/31-07/30/18 secondary to Alcohol intoxication, electrolyte abnormalities and fall. He was discharged to [facility] acute rehab facility and was discharged on 08/16/18 to [facility] where he has been residing every since. Patient states he is not taking any medications at home. Allergies Allergy/AdvReac Type Severity Reaction Status Date / Time Penicillins AdvReac Mild TIRED Verified 08/18/18 18:09 Home Medications Home Medications Medication Instructions Recorded Confirmed Type No Known Home Medications 08/18/18 08/18/18 History Past Med/Surg History Medical History Chronic hyponatremia History of esophageal stricture History of esophageal dilatation Hx of fracture of hip Hypertension (Chronic) Alcoholism (Chronic) Ambulatory dysfunction (Chronic) Dysphagia (Chronic) "h/o esophageal stricture s/p dilation in past" Frequent falls (Chronic) Surgical History History of esophagogastroduodenoscopy (EGD) History of hip surgery s/p fall and fx Family History Other Cancer HTN (hypertension) Social History marital status: Single Current Living Situation: Alone Other Information That Helps Us Care for You: No Feels Safe at Home: Yes Safety Concerns: Feels Safe At This Time Smoking Status: Former smoker Do You Dip or Chew Tobacco: No Hx Alcohol Use: Yes Alcohol type: beer Alcohol Intake Frequency: 3 or more drinks per day Alcohol Intake Frequency Comment: 7-10 beers a day, uncertain which kind of beer Hx Substance Use: No Beliefs That Will Affect Care: None Preferred Language: Spanish Communication Ability: Effective Harp 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 Assembler Required: No Review of Systems All systems reviewed & are unremarkable except as noted in HPI & below History unreliable given recent fall, intoxication Physical Exam 2 Vital Signs (Past 24 Hours): Last Vital Signs Temp 36.1 C L 08/18/18 18:45 Pulse 66 08/18/18 18:45 Resp 22 08/18/18 18:45 BP 123/80 08/18/18 18:45 Pulse Ox 96 08/18/18 18:45 Physical Exam: Gen: Unkempt M, sitting in bed, intoxicated, [place], able to communicate effectively Head: Normocephalic, + Frontal forehead lac with 3 sutures intact with dried blood, + Laceration above right eye brow Eyes: Sclera normal, no conjunctival injection, PERRLA, EOMI ENT: Gross hearing intact, normal pharynx, mucous membranes dry Neck: supple, no adenopathy, No JVD, no bruit, Resp: Clear to auscultation b/l, no wheeze, rales, rhonchi. 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 Extremities: No edema bilaterally Skin: warm, moist, no rash, mild turgor, cap refill < 2sec Neuro: Alert and oriented x 3, speech mostly normal but occasionally garbled, very [place], flat mood/affect, cran nerve 2-12 intact grossly : deferred Results & Data Laboratory Results Short CBC 08/18/18 Range/Units 18:35 WBC 11.08 H (4.8-10.8) K/uL Hgb 13.9 L (14.0-18.0) g/dL Hct 39.6 L (42-52) % Plt Count 695 H (130-400) K/uL BMP 08/18/18 18:35 Sodium 134 L Potassium 3.6 Chloride 99 Carbon Dioxide 22 BUN 6 L Creatinine 0.57 L Glucose 73 Calcium 9.0 Liver Function 08/18/18 Range/Units 18:35 Total Bilirubin 0.2 (0.2-1) mg/dl AST 32 (15-37) U/L ALT 35 (12-78) U/L Alkaline Phosphatase 131 H (45-117) U/L Albumin 3.6 (3.4-5.0) gm/dl Diagnostic Findings Head CT: IMPRESSION: 1. Right paramedian scalp contusion with trace subgaleal hematoma. Advanced diffuse parenchymal volume loss suggesting underlying neurodegenerative disease or chronic toxin exposure (for example, EtOH). 2. No acute intracranial pathology. 3. Chronic small vessel ischemic change and old lacunar infarct in the left caudate head. CSpine CT: IMPRESSION: 1. No acute osseous injury of the cervical spine. 2. Multilevel degenerative changes. ECG Rate (beats per minute): 67 Rhythm: normal sinus Findings: + nonspecific-ST abn Additional Comments: QTC 456ms Code Status & VTE Plan Code Status Full Code VTE Prophylaxis Plan Reason for no VTE drug order: Contraindicated Supervising Physician Co-Signing Physician Notes IM ATTENDING : Patient seen and examined. History obtained from patient and records. Preceding documentation by Ms. Savita Mendosa PA-C reviewed. FINAL ASSESSMENT AND PLAN as follows : Cerebral concussion secondary to mechanical fall secondary to alcoholic intoxication/abuse Subgaleal hematoma secondary to above Anemia, hemoglobin at baseline Chronic hyponatremia Past tobacco abuse History of old CVA on CAT scan Homelessness OBS Medical telemetry GCS neurochecks Neurology consultation RE cerebral concussion Trend H&H, transfuse PRBC if hemoglobin less than 8 (hx CVA on CAT scan) and or for symptomatic anemia DT precautions PT OT eval Social service RE discharge planning DVT prophylaxis. SCDs RE scalp hematoma/chronic thrombocytopenia Full code _ (1) Alcohol intoxication Complication of substance-induced condition: with unspecified complication Qualified Code(s): F10.929 - Alcohol use, unspecified with intoxication, unspecified (2) Dementia Dementia behavioral disturbance: without behavioral disturbance Dementia type : associated with alcoholism Qualified Code(s): F10.27 - Alcohol dependence with alcohol-induced persisting dementia (3) Fall Encounter type: initial encounter Qualified Code(s): W19.XXXA - Unspecified fall, initial encounter
[2018-08-18 20:55] LABS: Appearance Urine Clear (Clear); Bilirubin Urine Negative (Negative); Color Urine Yellow; Glucose Urine UA Negative (Negative); Ketones Urine Negative (Negative); Leukocyte Esterase Urine Negative (Negative); Nitrite Urine Negative (Negative); Protein Urine Negative (Negative); Specific Gravity Urine 1.008 (1.000-1.030); Urobilinogen Urine Negative (Negative)
[2018-08-18] MEDS ORDERED: MULTI-VITAMIN INFUSION 10 ML, THIAMINE HCL 100 MG, FOLIC ACID 1 MG in SODIUM CHLORIDE 0... IV SCH (21:30)
--- NOTE | 2018-08-18 21:40 | Emergency Department Note ---
Entered by Mark Pinedo acting as a scribe for Marcia Reardon MD History of Present Illness General Chief complaint: Fall Stated complaint: fall/ head pain/lac Source: patient and other (nursing staff) Limitations: intoxication History of Present Illness Onset (ago): unknown (today prior to arrival) Location: head Pain Consistency: + other (persistent) Quality: + other (headache after a fall) Associated symptoms: + other (drank a 12-pack of beer) History is limited due to intoxication. The patient is a 53 year old male who presents to the Emergency Room with complaints of a persistent headache after a fall occurring prior to arrival. Nursing staff reports that the patient had been drinking a 12-pack of beer, walked to get another, and on the way back to his room at the [employer] [facility] he tripped, fell and struck his head. The patient states that he drinks alcohol daily. He reports that he has only been at the motel for one day. He requests just get my head working again. The patient denies other medical problems. Home Medications Home Medications Medication Instructions Recorded Confirmed Type No Known Home Medications 08/18/18 08/18/18 History Allergies Allergy/AdvReac Type Severity Reaction Status Date / Time Penicillins AdvReac Mild TIRED Verified 08/18/18 18:09 Past Med/Surg History Medical History Chronic hyponatremia History of esophageal stricture History of esophageal dilatation Hx of fracture of hip Hypertension (Chronic) Alcoholism (Chronic) Ambulatory dysfunction (Chronic) Dysphagia (Chronic) "h/o esophageal stricture s/p dilation in past" Frequent falls (Chronic) Surgical History History of esophagogastroduodenoscopy (EGD) History of hip surgery s/p fall and fx Family History Other Cancer HTN (hypertension) Social History marital status: Single Current Living Situation: Alone Other Information That Helps Us Care for You: No Feels Safe at Home: Yes Safety Concerns: Feels Safe At This Time Smoking Status: Former smoker Do You Dip or Chew Tobacco: No Hx Alcohol Use: Yes Alcohol type: beer Alcohol Intake Frequency: 3 or more drinks per day Alcohol Intake Frequency Comment: 7-10 beers a day, uncertain which kind of beer Hx Substance Use: No Beliefs That Will Affect Care: None Communication Ability: Effective Review of Systems See HPI for pertinent positives & negatives. and A total of 10 systems reviewed and were otherwise negative Physical Exam Vital Signs Vital Signs - 24 hr 08/18/18 17:41 08/18/18 18:45 08/18/18 20:20 Temperature 35.4 C L 36.1 C L Temperature Source Oral Oral Sepsis Recent Fever Within 48 Hours No Sepsis New/Unexplained Change in Mental Status No Sepsis Action Taken by Nursing No Action Required Pulse Rate 72 Pulse Rate [Right Finger] 66 73 Pulse Rhythm Regular Pulse Rhythm [Right Finger] Pulse Strength Normal Respiratory Rate 18 22 18 Respiratory Effort / Characteristics Non-Labored Respiratory Depth Normal Respiratory Pattern Regular Blood Pressure 127/84 Blood Pressure [Left Arm] Blood Pressure [Right Arm] 123/80 115/100 Blood Pressure Mean 98 Blood Pressure Mean [Left Arm] Blood Pressure Mean [Right Arm] 94 105 Blood Pressure Position Lying Blood Pressure Position [Left Arm] Blood Pressure Position [Right Arm] Pulse Oximetry 98 96 98 Oxygen Delivery Method Room Air 08/18/18 21:43 08/18/18 21:44 08/18/18 22:32 Temperature 36.7 C Temperature Source Oral Sepsis Recent Fever Within 48 Hours Sepsis New/Unexplained Change in Mental Status Sepsis Action Taken by Nursing Pulse Rate Pulse Rate [Right Finger] 78 80 Pulse Rhythm Pulse Rhythm [Right Finger] Pulse Strength Respiratory Rate 17 18 Respiratory Effort / Characteristics Respiratory Depth Respiratory Pattern Blood Pressure Blood Pressure [Left Arm] Blood Pressure [Right Arm] 93/63 L 146/68 H Blood Pressure Mean Blood Pressure Mean [Left Arm] Blood Pressure Mean [Right Arm] 73 94 Blood Pressure Position Blood Pressure Position [Left Arm] Blood Pressure Position [Right Arm] Pulse Oximetry 97 93 Oxygen Delivery Method Room Air 08/18/18 23:26 08/19/18 05:00 08/19/18 07:00 Temperature 36.3 C L 36.8 C Temperature Source Oral Oral Sepsis Recent Fever Within 48 Hours Sepsis New/Unexplained Change in Mental Status Sepsis Action Taken by Nursing Pulse Rate 81 Pulse Rate [Right Finger] 74 60 59 L Pulse Rhythm Pulse Rhythm [Right Finger] Regular Pulse Strength Respiratory Rate 18 16 18 Respiratory Effort / Characteristics Non-Labored Spontaneous Non-Labored Spontaneous Respiratory Depth Normal Normal Respiratory Pattern Regular Regular Blood Pressure Blood Pressure [Left Arm] 119/72 Blood Pressure [Right Arm] 118/74 125/74 Blood Pressure Mean Blood Pressure Mean [Left Arm] 87 Blood Pressure Mean [Right Arm] 88 91 Blood Pressure Position Blood Pressure Position [Left Arm] Lying Blood Pressure Position [Right Arm] Pulse Oximetry 95 95 94 Oxygen Delivery Method Room Air Room Air Room Air 08/19/18 08:00 08/19/18 11:00 Temperature 36.8 C Temperature Source Oral Sepsis Recent Fever Within 48 Hours Sepsis New/Unexplained Change in Mental Status Sepsis Action Taken by Nursing Pulse Rate 62 Pulse Rate [Right Finger] 73 Pulse Rhythm Pulse Rhythm [Right Finger] Pulse Strength Respiratory Rate 18 Respiratory Effort / Characteristics Respiratory Depth Respiratory Pattern Blood Pressure Blood Pressure [Left Arm] Blood Pressure [Right Arm] 120/74 Blood Pressure Mean Blood Pressure Mean [Left Arm] Blood Pressure Mean [Right Arm] 89 Blood Pressure Position Blood Pressure Position [Left Arm] Blood Pressure Position [Right Arm] Lying Pulse Oximetry 94 Oxygen Delivery Method Room Air Vital signs reviewed. General: Well-appearing male smelling of alcohol, in no significant distress. HEENT: No scleral icterus, PERRLA, strabismus of the left eye noted, neck supple , no cervical spine tenderness. Small sub-centimeter laceration above the right eyebrow. Mid-forehead 2 cm laceration without active bleeding. Cardiovascular: Regular rate and rhythm, no extra sounds. Pulmonary: Clear to auscultation bilaterally, normal work of breathing. Abdomen: Soft, nontender, nondistended, positive bowel sounds. Musculoskeletal: Atraumatic, no peripheral edema. Neurologic: Patient awake, alert and oriented x3 and answers questions appropriately, GCS is 15, full strength in all 4 extremities. Cranial nerves 2 through 12 grossly intact. Skin: Warm, dry, no rash Course 1740: Past medical records reviewed. The patient was evaluated in room B5, and a complete history and physical examination were performed. 2004: I consulted Dr. Yasmeen Broussard. He will reevaluate the patient for hospitalization. Consultations Consultation #1: I consulted Dr. Yasmeen Broussard. He will reevaluate the patient for hospitalization. Time: 20:04 Administered Medications [facility] Stop: 09/18/18 08:59 Last Admin: 08/19/18 08:32 Dose: 1 mg Multivitamins (Multivitamin Tab) 1 tab PO QAM [facility] Stop: 09/18/18 08:59 Last Admin: 08/19/18 08:32 Dose: 1 tab Oxycodone HCl (Roxicodone Immediate Rel) 5 mg PO Q4H PRN PRN Reason: Pain Stop: 09/01/18 23:25 Last Admin: 08/19/18 10:03 Dose: 5 mg Admin: 08/19/18 06:03 Dose: 5 mg Admin: 08/18/18 23:58 Dose: 5 mg Thiamine HCl (Vitamin B-1) 100 [facility] Stop: 09/18/18 08:59 Last Admin: 08/19/18 08:32 Dose: 100 mg Discontinued Medications Diphtheria/Pertussis/Tetanus Vacc (Adacel) 0.5 ml IM .ONCE ONE Stop: 08/18/18 18:54 Last Admin: 08/18/18 18:58 Dose: 0.5 ml Gabapentin (Neurontin) 600 mg PO Q6H [facility] Stop: 08/19/18 12:01 Last Admin: 08/19/18 11:37 Dose: 600 mg Admin: 08/19/18 06:01 Dose: 600 mg Gabapentin (Neurontin) 1,200 mg PO TODAY@0000 [facility] Stop: 08/19/18 00:01 Last Admin: 08/19/18 01:06 Dose: 1,200 mg Multivitamins 10 ml/ Thiamine HCl 100 mg/ Folic Acid 1 mg/Sodium Chloride 1, 011.2 mls @ 100 mls/hr IV .Q10H7M [facility] Stop: 08/19/18 07:36 Last Infusion: 08/19/18 07:50 Dose: Admin: 08/18/18 21:41 Dose: 100 mls/hr Lidocaine HCl (Buffered Lidocaine 1%) 20 ml INFIL NOW ONE Stop: 08/18/18 19:28 Last Admin: 08/18/18 19:30 Dose: 20 ml Medical Decision Making Differential Diagnosis Differential diagnosis: Intracranial injury, cervical spine injury, intrathoracic injury, intra- abdominal injury, musculoskeletal injury. Medical Records Attestation: I reviewed the patient's medical records. Home Medications Current Medication List: was personally reviewed by me Laboratory Data Attestation: I reviewed the patient's lab results. Result diagrams: 08/19/18 06:57 08/19/18 06:57 Lab Results 08/18/18 08/18/18 08/18/18 Range/Units 18:35 18:35 18:35 WBC 11.08 H (4.8-10.8) K/uL RBC 4.10 L (4.7-6.1) M/uL Hgb 13.9 L (14.0-18.0) g/dL Hct 39.6 L (42-52) % MCV 96.6 (80-100) fL MCH 33.9 (25-34) pg MCHC 35.1 (32-36) g/dL RDW Std Deviation 46.0 (36.4-46.3) fL RDW Coeff of Luis 13.0 (11.5-14.5) % Plt Count 695 H (130-400) K/uL MPV 8.2 (7.4-10.4) fL Immature Gran % (Auto) 0.5 % Neut % (Auto) 56.8 % Lymph % (Auto) 33.1 % Wilkinson % (Auto) 6.4 % Eos % (Auto) 2.0 % Baso % (Auto) 1.2 % Immature Gran # (Auto) 0.06 H (0.00-0.02) K/uL Neut # (Auto) 6.29 (1.4-6.5) K/uL Lymph # (Auto) 3.67 H (1.2-3.4) K/uL Wilkinson # (Auto) 0.71 H (0.11-0.59) K/uL Eos # (Auto) 0.22 (0-0.5) K/uL Baso # (Auto) 0.13 (0-0.2) K/uL Sodium 134 L (136-145) mmol/L Potassium 3.6 (3.5-5.1) mmol/L Chloride 99 (98-107) mmol/L Carbon Dioxide 22 (21-32) mmol/L Anion Gap 13.0 H (3-11) BUN 6 L (7-18) mg/dl Creatinine 0.57 L (0.6-1.4) mg/dl Est Cr Clr Drug Dosing 119.2 ml/min Est GFR ( Amer) 134.9 Est GFR (Non-Af Amer) 116.4 BUN/Creatinine Ratio 10.2 (10-20) Glucose 73 (70-99) mg/dl Lactate (0.4-2.0) mmol/L Calcium 9.0 (8.5-10.1) mg/dl Magnesium 2.3 (1.8-2.4) mg/dl Total Bilirubin 0.2 (0.2-1) mg/dl AST 32 (15-37) U/L ALT 35 (12-78) U/L Alkaline Phosphatase 131 H (45-117) U/L Total Protein 8.4 H (6.4-8.2) gm/dl Albumin 3.6 (3.4-5.0) gm/dl Globulin 4.8 H (2.5-4.0) gm/dl Albumin/Globulin Ratio 0.7 L (0.9-2) Folate (>5.38) ng/ml Procalcitonin TSH 1.350 (0.300-4.500) uIu/ml Urine Color Urine Appearance (Clear) Urine pH (4.5-7.5) Ur Specific [place] (1.000-1.030) Urine Protein (Negative) Urine Glucose (UA) (Negative) Urine Ketones (Negative) Urine Blood (Negative) Urine Nitrite (Negative) Urine Bilirubin (Negative) Urine Urobilinogen (Negative) Ur Leukocyte Esterase (Negative) Ethyl Alcohol mg/dL 328.8 H (0-3) mg/dl Blood Type Antibody Screen 08/18/18 08/18/18 08/18/18 Range/Units 18:40 20:52 21:36 WBC (4.8-10.8) K/uL RBC (4.7-6.1) M/uL Hgb (14.0-18.0) g/dL Hct (42-52) % MCV (80-100) fL MCH (25-34) pg MCHC (32-36) g/dL RDW Std Deviation (36.4-46.3) fL RDW Coeff of Luis (11.5-14.5) % Plt Count (130-400) K/uL MPV (7.4-10.4) fL Immature Gran % (Auto) % Neut % (Auto) % Lymph % (Auto) % Wilkinson % (Auto) % Eos % (Auto) % Baso % (Auto) % Immature Gran # (Auto) (0.00-0.02) K/uL Neut # (Auto) (1.4-6.5) K/uL Lymph # (Auto) (1.2-3.4) K/uL Wilkinson # (Auto) (0.11-0.59) K/uL Eos # (Auto) (0-0.5) K/uL Baso # (Auto) (0-0.2) K/uL Sodium (136-145) mmol/L Potassium (3.5-5.1) mmol/L Chloride (98-107) mmol/L Carbon Dioxide (21-32) mmol/L Anion Gap (3-11) BUN (7-18) mg/dl Creatinine (0.6-1.4) mg/dl Est Cr Clr Drug Dosing ml/min Est GFR ( Amer) Est GFR (Non-Af Amer) BUN/Creatinine Ratio (10-20) Glucose (70-99) mg/dl Lactate (0.4-2.0) mmol/L Calcium (8.5-10.1) mg/dl Magnesium (1.8-2.4) mg/dl Total Bilirubin (0.2-1) mg/dl AST (15-37) U/L ALT (12-78) U/L Alkaline Phosphatase (45-117) U/L Total Protein (6.4-8.2) gm/dl Albumin (3.4-5.0) gm/dl Globulin (2.5-4.0) gm/dl Albumin/Globulin Ratio (0.9-2) Folate (>5.38) ng/ml Procalcitonin Cancelled < 0.05 TSH (0.300-4.500) uIu/ml Urine Color Yellow Urine Appearance Clear (Clear) Urine pH 6.0 (4.5-7.5) Ur Specific [place] 1.008 (1.000-1.030) Urine Protein Negative (Negative) Urine Glucose (UA) Negative (Negative) Urine Ketones Negative (Negative) Urine Blood Negative (Negative) Urine Nitrite Negative (Negative) Urine Bilirubin Negative (Negative) Urine Urobilinogen Negative (Negative) Ur Leukocyte Esterase Negative (Negative) Ethyl Alcohol mg/dL (0-3) mg/dl Blood Type Antibody Screen 08/18/18 08/18/18 08/18/18 Range/Units 23:49 23:49 23:49 WBC (4.8-10.8) K/uL RBC (4.7-6.1) M/uL Hgb 11.9 L (14.0-18.0) g/dL Hct 35.4 L (42-52) % MCV (80-100) fL MCH (25-34) pg MCHC (32-36) g/dL RDW Std Deviation (36.4-46.3) fL RDW Coeff of Luis (11.5-14.5) % Plt Count (130-400) K/uL MPV (7.4-10.4) fL Immature Gran % (Auto) % Neut % (Auto) % Lymph % (Auto) % Wilkinson % (Auto) % Eos % (Auto) % Baso % (Auto) % Immature Gran # (Auto) (0.00-0.02) K/uL Neut # (Auto) (1.4-6.5) K/uL Lymph # (Auto) (1.2-3.4) K/uL Wilkinson # (Auto) (0.11-0.59) K/uL Eos # (Auto) (0-0.5) K/uL Baso # (Auto) (0-0.2) K/uL Sodium (136-145) mmol/L Potassium (3.5-5.1) mmol/L Chloride (98-107) mmol/L Carbon Dioxide (21-32) mmol/L Anion Gap (3-11) BUN (7-18) mg/dl Creatinine (0.6-1.4) mg/dl Est Cr Clr Drug Dosing ml/min Est GFR ( Amer) Est GFR (Non-Af Amer) BUN/Creatinine Ratio (10-20) Glucose (70-99) mg/dl Lactate (0.4-2.0) mmol/L Calcium (8.5-10.1) mg/dl Magnesium (1.8-2.4) mg/dl Total Bilirubin (0.2-1) mg/dl AST (15-37) U/L ALT (12-78) U/L Alkaline Phosphatase (45-117) U/L Total Protein (6.4-8.2) gm/dl Albumin (3.4-5.0) gm/dl Globulin (2.5-4.0) gm/dl Albumin/Globulin Ratio (0.9-2) Folate > 24.00 (>5.38) ng/ml Procalcitonin TSH (0.300-4.500) uIu/ml Urine Color Urine Appearance (Clear) Urine pH (4.5-7.5) Ur Specific [place] (1.000-1.030) Urine Protein (Negative) Urine Glucose (UA) (Negative) Urine Ketones (Negative) Urine Blood (Negative) Urine Nitrite (Negative) Urine Bilirubin (Negative) Urine Urobilinogen (Negative) Ur Leukocyte Esterase (Negative) Ethyl Alcohol mg/dL (0-3) mg/dl Blood Type O Negative Antibody Screen NEGATIVE 08/19/18 08/19/18 08/19/18 Range/Units 00:18 06:57 06:57 WBC 11.81 H (4.8-10.8) K/uL RBC 3.49 L (4.7-6.1) M/uL Hgb 11.4 L (14.0-18.0) g/dL Hct 34.1 L (42-52) % MCV 97.7 (80-100) fL MCH 32.7 (25-34) pg MCHC 33.4 (32-36) g/dL RDW Std Deviation 48.0 H (36.4-46.3) fL RDW Coeff of Luis 13.4 (11.5-14.5) % Plt Count 625 H (130-400) K/uL MPV 8.3 (7.4-10.4) fL Immature Gran % (Auto) 0.4 % Neut % (Auto) 62.9 % Lymph % (Auto) 21.0 % Wilkinson % (Auto) 12.7 % Eos % (Auto) 2.1 % Baso % (Auto) 0.9 % Immature Gran # (Auto) 0.05 H (0.00-0.02) K/uL Neut # (Auto) 7.42 H (1.4-6.5) K/uL Lymph # (Auto) 2.48 (1.2-3.4) K/uL Wilkinson # (Auto) 1.50 H (0.11-0.59) K/uL Eos # (Auto) 0.25 (0-0.5) K/uL Baso # (Auto) 0.11 (0-0.2) K/uL Sodium 139 (136-145) mmol/L Potassium 3.7 (3.5-5.1) mmol/L Chloride 106 (98-107) mmol/L Carbon Dioxide 24 (21-32) mmol/L Anion Gap 10.0 (3-11) BUN 4 L (7-18) mg/dl Creatinine 0.43 L (0.6-1.4) mg/dl Est Cr Clr Drug Dosing 155.6 ml/min Est GFR ( Amer) > 150.0 Est GFR (Non-Af Amer) 130.7 BUN/Creatinine Ratio 8.9 L (10-20) Glucose 80 (70-99) mg/dl Lactate 2.2 H* (0.4-2.0) mmol/L Calcium 8.6 (8.5-10.1) mg/dl Magnesium (1.8-2.4) mg/dl Total Bilirubin 0.3 (0.2-1) mg/dl AST 24 (15-37) U/L ALT 26 (12-78) U/L Alkaline Phosphatase 104 (45-117) U/L Total Protein 6.9 (6.4-8.2) gm/dl Albumin 3.0 L (3.4-5.0) gm/dl Globulin 3.9 (2.5-4.0) gm/dl Albumin/Globulin Ratio 0.8 L (0.9-2) Folate (>5.38) ng/ml Procalcitonin TSH (0.300-4.500) uIu/ml Urine Color Urine Appearance (Clear) Urine pH (4.5-7.5) Ur Specific [place] (1.000-1.030) Urine Protein (Negative) Urine Glucose (UA) (Negative) Urine Ketones (Negative) Urine Blood (Negative) Urine Nitrite (Negative) Urine Bilirubin (Negative) Urine Urobilinogen (Negative) Ur Leukocyte Esterase (Negative) Ethyl Alcohol mg/dL (0-3) mg/dl Blood Type Antibody Screen 08/19/18 Range/Units 06:57 WBC (4.8-10.8) K/uL RBC (4.7-6.1) M/uL Hgb (14.0-18.0) g/dL Hct (42-52) % MCV (80-100) fL MCH (25-34) pg MCHC (32-36) g/dL RDW Std Deviation (36.4-46.3) fL RDW Coeff of Luis (11.5-14.5) % Plt Count (130-400) K/uL MPV (7.4-10.4) fL Immature Gran % (Auto) % Neut % (Auto) % Lymph % (Auto) % Wilkinson % (Auto) % Eos % (Auto) % Baso % (Auto) % Immature Gran # (Auto) (0.00-0.02) K/uL Neut # (Auto) (1.4-6.5) K/uL Lymph # (Auto) (1.2-3.4) K/uL Wilkinson # (Auto) (0.11-0.59) K/uL Eos # (Auto) (0-0.5) K/uL Baso # (Auto) (0-0.2) K/uL Sodium (136-145) mmol/L Potassium (3.5-5.1) mmol/L Chloride (98-107) mmol/L Carbon Dioxide (21-32) mmol/L Anion Gap (3-11) BUN (7-18) mg/dl Creatinine (0.6-1.4) mg/dl Est Cr Clr Drug Dosing ml/min Est GFR ( Amer) Est GFR (Non-Af Amer) BUN/Creatinine Ratio (10-20) Glucose (70-99) mg/dl Lactate 2.1 H* (0.4-2.0) mmol/L Calcium (8.5-10.1) mg/dl Magnesium (1.8-2.4) mg/dl Total Bilirubin (0.2-1) mg/dl AST (15-37) U/L ALT (12-78) U/L Alkaline Phosphatase (45-117) U/L Total Protein (6.4-8.2) gm/dl Albumin (3.4-5.0) gm/dl Globulin (2.5-4.0) gm/dl Albumin/Globulin Ratio (0.9-2) Folate (>5.38) ng/ml Procalcitonin TSH (0.300-4.500) uIu/ml Urine Color Urine Appearance (Clear) Urine pH (4.5-7.5) Ur Specific [place] (1.000-1.030) Urine Protein (Negative) Urine Glucose (UA) (Negative) Urine Ketones (Negative) Urine Blood (Negative) Urine Nitrite (Negative) Urine Bilirubin (Negative) Urine Urobilinogen (Negative) Ur Leukocyte Esterase (Negative) Ethyl Alcohol mg/dL (0-3) mg/dl Blood Type Antibody Screen Imaging Data Radiologist's Impression: Radiology results as stated below per my review and the radiologist's interpretation: CT cervical spine wo con CLINICAL HISTORY: 53 years-old Male presenting with fall, [facility]. TECHNIQUE: Multidetector CT of the cervical spine was performed without the use of intravenous contrast. IV contrast: None. One or more dose lowering techniques were used consistent with the principles of ALARA (as low as reasonably achievable), including automatic exposure control, mA or kV adjustment to individual patient size, and/or use of iterative reconstruction. COMPARISON: 02/15/2017. CT DOSE (mGy.cm): The estimated cumulative dose is 1597.44 mGy.cm. FINDINGS: Operator Receptionist topogram: Unremarkable. Straightening of normal cervical lordosis likely due to multilevel degenerative changes. Trace retrolisthesis of C4 on C5. Vertebral bodies otherwise demonstrate normal height and alignment. Moderate to severe intervertebral disc height loss at C4-5 and to a slightly lesser extent at C3-4 and C5-6. Disc osteophyte complexes from C3-4 through C6-7 with posterior bony spurring to a mild degree at several levels. There are degrees of osseous neural foraminal narrowing results largely from uncovertebral hypertrophy. No acute fracture or subluxation. Visualized portion the skull base intact. IMPRESSION: 1. No acute osseous injury of the cervical spine. 2. Multilevel degenerative changes. Electronically signed by: Romeo Lema M.D. 08/18/2018 6:[address] head/brain wo con CLINICAL HISTORY: 53 years-old Male presenting with fall, [facility]. TECHNIQUE: Multidetector CT imaging of the head was performed without the use of intravenous contrast. IV contrast: None. One or more dose lowering techniques were used consistent with the principles of ALARA (as low as reasonably achievable), including automatic exposure control, mA or kV adjustment to individual patient size, and/or use of iterative reconstruction. COMPARISON: 07/31/2018. CT DOSE (mGy.cm): The estimated cumulative dose is 1597.44. FINDINGS: Operator Receptionist topogram: Unremarkable. Proportional ventricular and sulcal prominence, greater than expected for age- related parenchymal volume loss. No hemorrhage. Periventricular and subcortical white matter hypoattenuation, nonspecific but likely indicative of chronic small vessel ischemic change. 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 No acute territorial infarct. No mass effect or midline shift. No extra-axial fluid collection. Paranasal sinuses and mastoid air cells clear. Calvarium intact. Soft tissue swelling with subjacent trace subgaleal hematoma in the right paramedian frontal scalp. IMPRESSION: 1. Right paramedian scalp contusion with trace subgaleal hematoma. Advanced diffuse parenchymal volume loss suggesting underlying neurodegenerative disease or chronic toxin exposure (for example, EtOH). 2. No acute intracranial pathology. 3. Chronic small vessel ischemic change and old lacunar infarct in the left caudate head. Electronically signed by: Romeo Lema M.D. 08/18/2018 6:22 PM ECG Data Attestation: I personally reviewed and interpreted this ECG as follows: Indication: toxicologic Rate (beats per minute): 67 Rhythm: normal sinus Findings: + other (LVH; previous septal infarct); no PAC, no PVC, no ST depression and no ST elevation Blood Pressure Blood Pressure Findings: Normal blood pressure Blood Pressure Disposition: did not require urgent referral Head Trauma GCS Score: 15 MDM Narrative This patient was evaluated and appeared to be in no significant distress. Multiple attempts at IV access were made but unsuccessful. Patient was placed on the vehicle monitor technician. CT scan of the head and neck were performed to reveal no evidence of acute intracranial process. The mid forehead laceration was approximated by Maria Elena Gray PA-C. Please see her notes for further details. Patient's blood alcohol is noted to be 328. The patient has no family or close contacts. Case management was asked to help as the patient would need to be discharged to a sober caregiver. This was unsuccessful. Given the fall with head injury and elevated alcohol, the patient was discussed with the hospitalist service, Dr. Montes who will evaluate for further management. Impression & Plan Alcohol intoxication, Closed head injury, Forehead laceration Discharge Plan Visit Data *Final* Discharge Date/Time: 08/18/18 22:39 Chief Complaint: Fall Stated Complaint: fall/ head pain/lac ED Provider: Marcia Reardon Discharge Problem: Alcohol intoxication, Closed head injury, Forehead laceration Patient Disposition: Admitted As Inpatient Discharge Instructions Interventions: ED Discharge Assessment Last Done: 08/18/18 22:39 The scribe's documentation has been prepared under my direction and personally reviewed by me in its entirety. I confirm that the note above accurately reflects all work, treatment, procedures, and medical decision making performed by me.
[2018-08-18] MEDS ORDERED: LORazepam 2 MG/4 ML VIAL IV PRN (23:26)
[2018-08-18] MEDS ORDERED: PROCHLORPERAZINE 5 MG in SYRINGE 4 ML IV PRN (23:26)
[2018-08-18] MEDS ORDERED: NITROGLYCERIN SL 0.4 MG/TAB TAB SL PRN (23:26)
[2018-08-18] MEDS ORDERED: GABAPENTIN 1200MG ALCOHOL WITHDRAWAL LOAD PO STA (23:26)
[2018-08-18] MEDS ORDERED: LORazepam 1 MG/2 ML VIAL IV PRN (23:26)
[2018-08-18] MEDS ORDERED: ATIVAN IV ALCOHOL WITHDRAWL IV SCH (23:26)
[2018-08-18] MEDS ORDERED: LORazepam 3 MG/6 ML VIAL IV PRN (23:26)
[2018-08-18] MEDS: OXYCODONE HCL IR 5 MG TAB (IMMEDIATE RELEASE) PO PRN (23:58)
[2018-08-19] MEDS ORDERED: GABAPENTIN 600 MG TAB PO SCH
[2018-08-19 00:11] LABS: Hematocrit (blood only) 35.4 % (42-52); Hemoglobin 11.9 g/dL (14.0-18.0)
[2018-08-19] MEDS: GABAPENTIN 600 MG TAB PO SCH ×3 (06:01→21:35)
[2018-08-19] MEDS: OXYCODONE HCL IR 5 MG TAB (IMMEDIATE RELEASE) PO PRN ×2 (06:03→10:03)
[2018-08-19 07:08] LABS: Basophils # (auto) 0.11 K/uL (0-0.2); Basophils % (auto) 0.9 %; Eosinophils # (auto) 0.25 K/uL (0-0.5); Eosinophils % (auto) 2.1 %; Hematocrit (blood only) 34.1 % (42-52); Hemoglobin 11.4 g/dL (14.0-18.0); Immature Granulocytes # (auto) 0.05 K/uL (0.00-0.02); Immature Granulocytes % (auto) 0.4 %; Lymphocytes # (auto) 2.48 K/uL (1.2-3.4); Mean Corpuscular Hgb Conc 33.4 g/dL (32-36); Mean Corpuscular Volume 97.7 fL (80-100); Mean Platelet Volume 8.3 fL (7.4-10.4); Monocytes % (auto) 12.7 %; Neutrophils # (auto) 7.42 K/uL (1.4-6.5); Neutrophils % (auto) 62.9 %; Platelet Count 625 K/uL (130-400); RDW Coefficient of Variation 13.4 % (11.5-14.5); Red Blood Count 3.49 M/uL (4.7-6.1); White Blood Count 11.81 K/uL (4.8-10.8)
[2018-08-19 07:42] LABS: Alanine Aminotransferase 26 U/L (12-78); Aspartate Aminotransferase 24 U/L (15-37); BUN Creatinine Ratio 8.9 (10-20); Blood Urea Nitrogen 4 mg/dl (7-18); Calcium 8.6 mg/dl (8.5-10.1); Carbon Dioxide 24 mmol/L (21-32); Chloride 106 mmol/L (98-107); Creatinine Clr Calc Pharmacy 155.6 ml/min; Est GFR (African American) > 150.0; Est GFR (Non-African American) 130.7; Glucose 80 mg/dl (70-99); Potassium 3.7 mmol/L (3.5-5.1); Sodium 139 mmol/L (136-145)
[2018-08-19 07:51] LABS: Albumin Globulin Ratio 0.8 (0.9-2); Alkaline Phosphatase 104 U/L (45-117); Bilirubin,Total 0.3 mg/dl (0.2-1); Globulin 3.9 gm/dl (2.5-4.0); Total Protein 6.9 gm/dl (6.4-8.2)
[2018-08-19] MEDS: THIAMINE HCL 100 MG TAB PO SCH (08:32)
[2018-08-19] MEDS: FOLIC ACID 1 MG TAB PO SCH (08:32)
[2018-08-19] MEDS: MULTIVITAMIN TAB PO SCH (08:32)
--- NOTE | 2018-08-19 10:38 | Neurology Consultation ---
Date of Consultation August 19, 2018 Ethyl Alcohol Intoxication Mild TBI Subgaleal Hematoma Mechanical Fall Chronic Alcoholism Chronic Hyponatremia A 53 year old man with history of alcohol use disorder admitted for mild TBI s/ p mechanical fall while intoxicated. Neurology consulted for concussion. - CT head reviewed. Generalized volume loss and chronic microvascular ischemic changes. No SDH or intracranial hemorrahge. Discussed findings with patient. Discussed chronic alcohol's effects of brain and brain volume loss. Heavy alcohol use can certainly lead to early onset dementia. - Agree with thiamine and folate replacement. I would recommend adding B12. Although I do feel patient compliance will be an issue. He stated he does not have intent or goal to quit alcohol use. Stated he has tried several times. - Consider psychiatry consult of behavioral health referral for substance abuse. No further neurology work up. - ALcohol withdrawal precautions. - Will defer to psychiatry if Campral would be beneficial. PLease call me with any further questions. History of Present Illness Attending Physician: Romario Ratliff MD A 53 year old male with chronic alcoholism admitted s/p mechanical fall while intoxicated. Ethyl alcohol level > 300. Patient is not on any medications at home. Patient sustained a laceration on his head requiring stitches. He drinks 7 -10 per day. Last drink was yesterday. He was walking to buy beer and fell on sidewalk and hit his head. Amnestic to the fall. He also complained of headache and dizzness. He was recently admitted from 07/30-07/31 for alcohol intoxication. He was discharged to rehab then discharged to [facility] on 2018. CT head in the ED showed subgaleal hematomoa. No parenchyal contusion. Labs in the ED showed thrombocytosis, elevated D-dimer, elevated ethyl alcohol, Na 134, and elevated lactate. He was started in gabapentin taper, folic acid, and thiamine. Patient hard of hearing. Reporting right wrist pain and requesting more milk. He is eating lunch. Denies goal to quit alcohol use. Drinks daily. Takes him 12 beers to feel affect. States he had 5 beers yesterday. Denies intoxicaiton. Allergies Allergy/AdvReac Type Severity Reaction Status Date / Time Penicillins AdvReac Mild TIRED Verified 08/18/18 18:09 Home Medications Home Medications Medication Instructions Recorded Confirmed Type No Known Home Medications 08/18/18 08/18/18 History Patient History Medical History Chronic hyponatremia History of esophageal stricture History of esophageal dilatation Hx of fracture of hip Hypertension (Chronic) Alcoholism (Chronic) Ambulatory dysfunction (Chronic) Dysphagia (Chronic) "h/o esophageal stricture s/p dilation in past" Frequent falls (Chronic) Surgical History History of esophagogastroduodenoscopy (EGD) History of hip surgery s/p fall and fx Family History Other Cancer HTN (hypertension) Social History marital status: Single Current Living Situation: Alone Other Information That Helps Us Care for You: No Feels Safe at Home: Yes Safety Concerns: Feels Safe At This Time Smoking Status: Former smoker Do You Dip or Chew Tobacco: No Hx Alcohol Use: Yes Alcohol type: beer Alcohol Intake Frequency: 3 or more drinks per day Alcohol Intake Frequency Comment: 7-10 beers a day, uncertain which kind of beer Hx Substance Use: No Beliefs That Will Affect Care: None Communication Ability: Effective Physical Exam 2 Vital Signs (Past 24 Hours): Last Vital Signs Temp 36.8 C 08/19/18 07:00 Pulse 62 08/19/18 08:00 Resp 18 08/19/18 07:00 BP 119/72 08/19/18 07:00 Pulse Ox 94 08/19/18 07:00 Physical Exam: EXAM: Constitutional: appears chronically ill, no distress, thin Head and Face: trauma to right forehead, gauze in place and covering eye, appears dry with sutchers Eyes: normal lids, normal conjunctiva Neck: supple Respiratory: normal effort Cardiovascular: regular rhythm Abdomen: non distended Skin: no rashes, lesions, or ulcers noted Psychiatric: normal affect NEUROLOGIC EXAMINATION: Appearance: no acute distress Orientation: awake, alert and oriented x 3 Mental Status: alert Memory: Ok Knowledge: appropriate Language: no aphasia Speech: no dysarthria Cranial Nerves: CN 2 - no visual defect on confrontation and pupils round, equal, reactive to light CN 3, 4, 6 - extra-ocular movements intact and no nystagmus CN 5 - facial sensation intact CN 7 - no facial asymmetry CN 8 - intact hearing CN 9, 10 - palate symmetric CN 11 - good shoulder shrug CN 12 - tongue midline Gait:deferred Coordination: no ataxia with finger to nose testing, no tremor Sensory: intact to light touch Muscle Tone: normal Muscle exam: 5/5 throughout, limited in right hand due to pain Reflexes: No clonus, negative souza
--- NOTE | 2018-08-19 10:59 | Hospitalist Progress Note ---
Date of Service August 19, 2018 Assessment & Plan (1) Fall: Fall: per admitting service notes: This is a 53 year old M with significant PMH of ETOH Abuse, homelessness, HTN, Chronic hyponatremia, freq falls who presents to [facility] ED seconary to fall and hit head this evening. In ED pt noted to be intoxicated with Ethyl alcohol level 328.8. Pt suffered Frontal forehead laceration x 2 which were repaired; however CT scan brain revealed trace subgaleal hematoma. Given intoxication, recent fall, subgaleal hematoma and pt residing in [facility] patient will be admitted for further observation and placement. -- in the setting of alcohol intoxication management as noted below -- PT/OT eval Head Injury -- CT head noted -- Neuro consulted review of Ct scan done, no intracranial hemorrhage appreciated -- lacerations on the scalp sutured will need to be removed in 5-7 days Subgaleal hemorrhage: -- Neuro consulted review of Ct scan done, no intracranial hemorrhage appreciated recommend alcohol rehab referral monitor closely Alcohol intoxication: -alcohol cessation recommended -gabapentin taper given ETOH abuse Alcohol abuse: -as above Ambulatory dysfunction: -PT/OT when appropriate Hyponatremia: -Na 134, previous admission it was recommended patient follow a fluid restriction 1200ml with NACL tabs 1g tid -Na 139, continue Fliid restriction for now, monitor Dementia: -Per CT: Advanced diffuse parenchymal volume loss suggesting underlying neurodegenerative disease or chronic toxin exposure (for example, EtOH). History of Hypertension - prescribed Amlodipine on discharge patient not taking - BP stable at this time monitor DVT prophylaxis SCDs Disposition pending (2) Forearm pain: xrays of BL forearm: no fracture Subjective ff up for fall, head trauma, alcohol intoxication seen resting in bed, watching TV comfortable states he feels ok denies headache, dizziness, nausea, neuro symptoms report pain on the right forearm, mild on the left denies any other pain on his body no tremors, hallucinations, anxiety denies other symptoms Physical Exam 2 Vital Signs (Past 24 Hours): Last Vital Signs Temp 36.8 C 08/19/18 07:00 Pulse 62 08/19/18 08:00 Resp 18 08/19/18 07:00 BP 119/72 08/19/18 07:00 Pulse Ox 94 08/19/18 07:00 Physical Exam: General- oriented x 3, not in distress, speaks in sentences with no effort or accessory muscle use Head- (+) laceration right frontal area: sutures intact (+) excoriation right forehead: healing Eyes- anicteric Neck- no JVD Lungs- clear breath sounds bilaterally, no rales/wheezes Heart- normal rate, regular rhythm; no murmurs Abdomen- normal bowel sounds, nondistended, soft, nontender Extremities- no pretibial edema, no calf tenderness Neuro- alert, oriented x 3; no gross focal neurologic deficits Skin- warm & dry Results & Data Laboratory Results Laboratory Results - last 24 hr 08/18/18 08/18/18 08/18/18 18:35 18:35 18:35 WBC 11.08 H RBC 4.10 L Hgb 13.9 L Hct 39.6 L MCV 96.6 MCH 33.9 MCHC 35.1 RDW Std Deviation 46.0 RDW Coeff of Luis 13.0 Plt Count 695 H MPV 8.2 Immature Gran % (Auto) 0.5 Neut % (Auto) 56.8 Lymph % (Auto) 33.1 [place] % (Auto) 6.4 Eos % (Auto) 2.0 Baso % (Auto) 1.2 Immature Gran # (Auto) 0.06 H Neut # (Auto) 6.29 Lymph # (Auto) 3.67 H [place] # (Auto) 0.71 H Eos # (Auto) 0.22 Baso # (Auto) 0.13 Sodium 134 L Potassium 3.6 Chloride 99 Carbon Dioxide 22 Anion Gap 13.0 H BUN 6 L Creatinine 0.57 L Est Cr Clr Drug Dosing 119.2 Est GFR ( Amer) 134.9 Est GFR (Non-Af Amer) 116.4 BUN/Creatinine Ratio 10.2 Glucose 73 Lactate Calcium 9.0 Magnesium 2.3 Total Bilirubin 0.2 AST 32 ALT 35 Alkaline Phosphatase 131 H Total Protein 8.4 H Albumin 3.6 Globulin 4.8 H Albumin/Globulin Ratio 0.7 L Folate Procalcitonin TSH 1.350 Urine Color Urine Appearance Urine pH Ur Specific [place] Urine Protein Urine Glucose (UA) Urine Ketones Urine Blood Urine Nitrite Urine Bilirubin Urine Urobilinogen Ur Leukocyte Esterase Ethyl Alcohol mg/dL 328.8 H Blood Type Antibody Screen 08/18/18 08/18/18 08/18/18 18:40 20:52 21:36 WBC RBC Hgb Hct MCV MCH MCHC RDW Std Deviation RDW Coeff of Luis Plt Count MPV Immature Gran % (Auto) Neut % (Auto) Lymph % (Auto) [place] % (Auto) Eos % (Auto) Baso % (Auto) Immature Gran # (Auto) Neut # (Auto) Lymph # (Auto) [place] # (Auto) Eos # (Auto) Baso # (Auto) Sodium Potassium Chloride Carbon Dioxide Anion Gap BUN Creatinine Est Cr Clr Drug Dosing Est GFR ( Amer) Est GFR (Non-Af Amer) BUN/Creatinine Ratio Glucose Lactate Calcium Magnesium Total Bilirubin AST ALT Alkaline Phosphatase Total Protein Albumin Globulin Albumin/Globulin Ratio Folate Procalcitonin Cancelled < 0.05 TSH Urine Color Yellow Urine Appearance Clear Urine pH 6.0 Ur Specific [place] 1.008 Urine Protein Negative Urine Glucose (UA) Negative Urine Ketones Negative Urine Blood Negative Urine Nitrite Negative Urine Bilirubin Negative Urine Urobilinogen Negative Ur Leukocyte Esterase Negative Ethyl Alcohol mg/dL Blood Type Antibody Screen 08/18/18 08/18/18 08/18/18 23:49 23:49 23:49 WBC RBC Hgb 11.9 L Hct 35.4 L MCV MCH MCHC RDW Std Deviation RDW Coeff of Lius Plt Count MPV Immature Gran % (Auto) Neut % (Auto) Lymph % (Auto) [place] % (Auto) Eos % (Auto) Baso % (Auto) Immature Gran # (Auto) Neut # (Auto) Lymph # (Auto) [place] # (Auto) Eos # (Auto) Baso # (Auto) Sodium Potassium Chloride Carbon Dioxide Anion Gap BUN Creatinine Est Cr Clr Drug Dosing Est GFR ( Amer) Est GFR (Non-Af Amer) BUN/Creatinine Ratio Glucose Lactate Calcium Magnesium Total Bilirubin AST ALT Alkaline Phosphatase Total Protein Albumin Globulin Albumin/Globulin Ratio Folate > 24.00 Procalcitonin TSH Urine Color Urine Appearance Urine pH Ur Specific [place] Urine Protein Urine Glucose (UA) Urine Ketones Urine Blood Urine Nitrite Urine Bilirubin Urine Urobilinogen Ur Leukocyte Esterase Ethyl Alcohol mg/dL Blood Type O Negative Antibody Screen NEGATIVE 08/19/18 08/19/18 08/19/18 00:18 06:57 06:57 WBC 11.81 H RBC 3.49 L Hgb 11.4 L Hct 34.1 L MCV 97.7 MCH 32.7 MCHC 33.4 RDW Std Deviation 48.0 H RDW Coeff of Luis 13.4 Plt Count 625 H MPV 8.3 Immature Gran % (Auto) 0.4 Neut % (Auto) 62.9 Lymph % (Auto) 21.0 [place] % (Auto) 12.7 Eos % (Auto) 2.1 Baso % (Auto) 0.9 Immature Gran # (Auto) 0.05 H Neut # (Auto) 7.42 H Lymph # (Auto) 2.48 [place] # (Auto) 1.50 H Eos # (Auto) 0.25 Baso # (Auto) 0.11 Sodium 139 Potassium 3.7 Chloride 106 Carbon Dioxide 24 Anion Gap 10.0 BUN 4 L Creatinine 0.43 L Est Cr Clr Drug Dosing 155.6 Est GFR ( Amer) > 150.0 Est GFR (Non-Af Amer) 130.7 BUN/Creatinine Ratio 8.9 L Glucose 80 Lactate 2.2 H* Calcium 8.6 Magnesium Total Bilirubin 0.3 AST 24 ALT 26 Alkaline Phosphatase 104 Total Protein 6.9 Albumin 3.0 L Globulin 3.9 Albumin/Globulin Ratio 0.8 L Folate Procalcitonin TSH Urine Color Urine Appearance Urine pH Ur Specific [place] Urine Protein Urine Glucose (UA) Urine Ketones Urine Blood Urine Nitrite Urine Bilirubin Urine Urobilinogen Ur Leukocyte Esterase Ethyl Alcohol mg/dL Blood Type Antibody Screen 08/19/18 06:57 WBC RBC Hgb Hct MCV MCH MCHC RDW Std Deviation RDW Coeff of Luis Plt Count MPV Immature Gran % (Auto) Neut % (Auto) Lymph % (Auto) [place] % (Auto) Eos % (Auto) Baso % (Auto) Immature Gran # (Auto) Neut # (Auto) Lymph # (Auto) [place] # (Auto) Eos # (Auto) Baso # (Auto) Sodium Potassium Chloride Carbon Dioxide Anion Gap BUN Creatinine Est Cr Clr Drug Dosing Est GFR ( Amer) Est GFR (Non-Af Amer) BUN/Creatinine Ratio Glucose Lactate 2.1 H* Calcium Magnesium Total Bilirubin AST ALT Alkaline Phosphatase Total Protein Albumin Globulin Albumin/Globulin Ratio Folate Procalcitonin TSH Urine Color Urine Appearance Urine pH Ur Specific [place] Urine Protein Urine Glucose (UA) Urine Ketones Urine Blood Urine Nitrite Urine Bilirubin Urine Urobilinogen Ur Leukocyte Esterase Ethyl Alcohol mg/dL Blood Type Antibody Screen _ (1) Fall Encounter type: initial encounter Qualified Code(s): W19.XXXA - Unspecified fall, initial encounter
--- NOTE | 2018-08-19 12:42 | XRay Report ---
XR forearm RT 2V CLINICAL HISTORY: pain, s/p fall trauma. Pain. COMPARISON: None. DISCUSSION: The bones and joint spaces appear intact. There is no evidence of fracture, dislocation o r bony disease. There is no evidence for soft tissue swelling. IMPRESSION: Negative study. The above report was generated using voice recognition software. It may contain grammatical, syntax or spelling errors. Electronically signed by: Keven Vann M.D. 08/19/2018 12:41 PM
[2018-08-19] MEDS: ACETAMINOPHEN 325 MG TAB PO PRN (18:45)
[2018-08-20] MEDS: OXYCODONE HCL IR 5 MG TAB (IMMEDIATE RELEASE) PO PRN ×3 (03:40→18:01)
[2018-08-20] MEDS: ACETAMINOPHEN 325 MG TAB PO PRN ×4 (04:53→21:21)
[2018-08-20] MEDS: GABAPENTIN 600 MG TAB PO SCH ×3 (05:38→23:40)
[2018-08-20 07:33] LABS: Basophils # (auto) 0.09 K/uL (0-0.2); Basophils % (auto) 0.8 %; Eosinophils # (auto) 0.34 K/uL (0-0.5); Eosinophils % (auto) 3.1 %; Hematocrit (blood only) 34.3 % (42-52); Hemoglobin 11.6 g/dL (14.0-18.0); Immature Granulocytes # (auto) 0.03 K/uL (0.00-0.02); Immature Granulocytes % (auto) 0.3 %; Lymphocytes # (auto) 2.54 K/uL (1.2-3.4); Mean Corpuscular Hgb Conc 33.8 g/dL (32-36); Mean Corpuscular Volume 96.9 fL (80-100); Mean Platelet Volume 8.4 fL (7.4-10.4); Monocytes % (auto) 14.5 %; Neutrophils # (auto) 6.42 K/uL (1.4-6.5); Neutrophils % (auto) 58.3 %; Platelet Count 544 K/uL (130-400); RDW Coefficient of Variation 13.2 % (11.5-14.5); RDW Standard Deviation 46.8 fL (36.4-46.3); Red Blood Count 3.54 M/uL (4.7-6.1); White Blood Count 11.02 K/uL (4.8-10.8)
[2018-08-20] MEDS: THIAMINE HCL 100 MG TAB PO SCH (07:41)
[2018-08-20] MEDS: MULTIVITAMIN TAB PO SCH (07:41)
[2018-08-20] MEDS: FOLIC ACID 1 MG TAB PO SCH (07:42)
[2018-08-20 08:10] LABS: BUN Creatinine Ratio 15.5 (10-20); Blood Urea Nitrogen 6 mg/dl (7-18); Carbon Dioxide 26 mmol/L (21-32); Chloride 101 mmol/L (98-107); Creatinine Clr Calc Pharmacy 169.7 ml/min; Est GFR (African American) > 150.0; Est GFR (Non-African American) 136.1; Glucose 88 mg/dl (70-99); Potassium 3.7 mmol/L (3.5-5.1); Sodium 133 mmol/L (136-145)
--- NOTE | 2018-08-20 16:51 | Hospitalist Progress Note ---
Date of Service August 20, 2018 Assessment & Plan (1) Fall: Fall: per admitting service notes: This is a 53 year old M with significant PMH of ETOH Abuse, homelessness, HTN, Chronic hyponatremia, freq falls who presents to [facility] ED seconary to fall and hit head this evening. In ED pt noted to be intoxicated with Ethyl alcohol level 328.8. Pt suffered Frontal forehead laceration x 2 which were repaired; however CT scan brain revealed trace subgaleal hematoma. Given intoxication, recent fall, subgaleal hematoma and pt residing in [facility] patient will be admitted for further observation and placement. -- in the setting of alcohol intoxication management as noted below -- PT/OT eval: recommend Rehab Head Injury -- CT head noted -- Neuro consulted review of Ct scan done, no intracranial hemorrhage appreciated -- lacerations on the scalp sutured will need to be removed in 5-7 days -- stable neurologically Subgaleal hemorrhage: -- Neuro consulted review of Ct scan done, no intracranial hemorrhage appreciated recommend alcohol rehab referral monitor closely Alcohol intoxication: -alcohol cessation recommended -gabapentin taper given ETOH abuse - no signs of overt withdrawal Alcohol abuse: -as above Ambulatory dysfunction: -PT/OT recommends rehab Thrombocytosis - not present during admission last month - peripheral smear noted - will consult Hematology Hyponatremia: -Na 134, previous admission it was recommended patient follow a fluid restriction 1200ml with NACL tabs 1g tid -Na 139, continue Fluid restriction for now, monitor - Na 133 today, monitor Dementia: -Per CT: Advanced diffuse parenchymal volume loss suggesting underlying neurodegenerative disease or chronic toxin exposure (for example, EtOH). History of Hypertension - prescribed Amlodipine on discharge patient not taking -monitor BP DVT prophylaxis SCDs Disposition will need Rehab Placement (2) Forearm pain: xrays of BL forearm: no fracture Subjective ff up for fall, head trauma, alcohol intoxication resting comfortably watching TV states he feels fine mild headache, improving denies any other neuro symptoms has some mild r forearm no tremors, hallucinations, anxiety denies other symptoms Physical Exam 2 Vital Signs (Past 24 Hours): Last Vital Signs Temp 37.3 C 08/20/18 15:00 Pulse 71 08/20/18 15:00 Resp 18 08/20/18 15:00 BP 132/81 08/20/18 15:00 Pulse Ox 95 08/20/18 15:00 Physical Exam: General- oriented x 2, not in distress, speaks in sentences with no effort or accessory muscle use Head- (+) suture on the frontoparietal area- band aid in place, no bleeding Eyes- anicteric Neck- no JVD Lungs- clear breath sounds bilaterally Heart- normal rate, regular rhythm; no murmurs Abdomen- normal bowel sounds, nondistended, soft, nontender Extremities- no pretibial edema, no calf tenderness Neuro- alert, oriented x 2; no gross focal neurologic deficits Skin- warm & dry Results & Data Laboratory Results Laboratory Results - last 24 hr 08/19/18 08/20/18 08/20/18 06:57 07:19 07:19 WBC 11.02 H RBC 3.54 L Hgb 11.6 L Hct 34.3 L MCV 96.9 MCH 32.8 MCHC 33.8 RDW Std Deviation 46.8 H RDW Coeff of Luis 13.2 Plt Count 544 H MPV 8.4 Immature Gran % (Auto) 0.3 Neut % (Auto) 58.3 Lymph % (Auto) 23.0 [place] % (Auto) 14.5 Eos % (Auto) 3.1 Baso % (Auto) 0.8 Immature Gran # (Auto) 0.03 H Neut # (Auto) 6.42 Lymph # (Auto) 2.54 [place] # (Auto) 1.60 H Eos # (Auto) 0.34 Baso # (Auto) 0.09 Peripher Smr Path Cons Sodium 133 L Potassium 3.7 Chloride 101 Carbon Dioxide 26 Anion Gap 6.0 BUN 6 L Creatinine 0.39 L Est Cr Clr Drug Dosing 169.7 Est GFR ( Amer) > 150.0 Est GFR (Non-Af Amer) 136.1 BUN/Creatinine Ratio 15.5 Glucose 88 Calcium 9.0 _ (1) Fall Encounter type: initial encounter Qualified Code(s): W19.XXXA - Unspecified fall, initial encounter
[2018-08-20] MEDS: DOCUSATE SODIUM 100 MG CAP PO SCH (19:51)
[2018-08-21] MEDS: ACETAMINOPHEN 325 MG TAB PO PRN ×3 (05:42→21:36)
[2018-08-21 06:32] LABS: Creatinine Clr Calc Pharmacy 138.4 ml/min; Est GFR (African American) 144.8; Est GFR (Non-African American) 124.9; Potassium 3.5 mmol/L (3.5-5.1)
[2018-08-21 08:12] LABS: Basophils # (auto) 0.05 K/uL (0-0.2); Basophils % (auto) 0.4 %; Eosinophils # (auto) 0.44 K/uL (0-0.5); Eosinophils % (auto) 3.9 %; Hematocrit (blood only) 35.5 % (42-52); Hemoglobin 12.6 g/dL (14.0-18.0); Immature Granulocytes # (auto) 0.03 K/uL (0.00-0.02); Immature Granulocytes % (auto) 0.3 %; Lymphocytes # (auto) 2.69 K/uL (1.2-3.4); Lymphocytes % (auto) 23.8 %; Mean Corpuscular Hgb Conc 35.5 g/dL (32-36); Mean Corpuscular Volume 98.1 fL (80-100); Mean Platelet Volume 8.7 fL (7.4-10.4); Monocytes # (auto) 1.29 K/uL (0.11-0.59); Monocytes % (auto) 11.4 %; Neutrophils # (auto) 6.82 K/uL (1.4-6.5); Neutrophils % (auto) 60.2 %; Platelet Count 521 K/uL (130-400); RDW Coefficient of Variation 13.1 % (11.5-14.5); RDW Standard Deviation 47.1 fL (36.4-46.3); Red Blood Count 3.62 M/uL (4.7-6.1); White Blood Count 11.32 K/uL (4.8-10.8)
[2018-08-21] MEDS: OXYCODONE HCL IR 5 MG TAB (IMMEDIATE RELEASE) PO PRN (08:30)
[2018-08-21] MEDS: FOLIC ACID 1 MG TAB PO SCH (08:31)
[2018-08-21] MEDS: DOCUSATE SODIUM 100 MG CAP PO SCH ×2 (08:31→20:19)
[2018-08-21] MEDS: MULTIVITAMIN TAB PO SCH (08:31)
[2018-08-21] MEDS: THIAMINE HCL 100 MG TAB PO SCH (08:31)
[2018-08-21] MEDS: GABAPENTIN 600 MG TAB PO SCH (11:58)
[2018-08-21] MEDS ORDERED: POLYETHYLENE (MIRALAX) 17 GM PACK PO ONE (13:15)
--- NOTE | 2018-08-21 19:21 | Oncology Consultation ---
Date of Consultation August 21, 2018 Imp: 53 year old male with history of alcohol abuse admitted s/p fall had prior thrombocytopenia, now with mild leukocytosis adn thrombocytosis Likely reactive thrombocytosis. Elevated platelet count improving since admission recommend rule out infection recommend check iron tibc and ferritin to rule out iron deficiency as he has mild anemia check cbc w/ diff and smear recommend follow up with PCP for age and gender appropriate screening recommend that he follow up with hematology upon discharge. tiger texted Dr Ratliff with recommendations thank you for consult reason for consult: thrombocytosis History of Present Illness Attending Physician: Romario Ratliff MD HPI: 53 year old male with history of alcohol abuse, chronic hyponatremia, esophageal stricture, frequent falls, hypertension admitted s/p Mechanical fall with laceration of forehead. On last admission he had thrombocytopenia. On current admission platelet count and wbc are elevated. We are asked to consult for thrombocytosis. He denies any headache or dizziness or shortness of breath or chest pain or fainting or abdominal pain or calf pain or urinary symptoms or change in bowel habit or black stool or blood in stool. He states that occasionally feel feverish and occasional sweats and cough sometimes since he has been admitted but states that prior to admission he was feeling ok and did not have any fever, occasional clear phlegm since he was admitted. Denies any bleeding symptoms. In 07/31/18 to 08/02/18 platelet count ranged from 93k to 100k. On this admission platelet count was high at 695 but has trended down to 521 today His WBC is mildly elevated 11.32 with mild elevated neutrophils and elevated monocytes He also has mild anemia with hemoglobin ranging from 11.4 to 13.8, was 12.6 today He states that he uses walker because Allergies Allergy/AdvReac Type Severity Reaction Status Date / Time Penicillins AdvReac Mild TIRED Verified 08/18/18 18:09 Home Medications Home Medications Medication Instructions Recorded Confirmed Type No Known Home Medications 08/18/18 08/18/18 History Patient History Medical History Chronic hyponatremia History of esophageal stricture History of esophageal dilatation Hx of fracture of hip Hypertension (Chronic) Alcoholism (Chronic) Ambulatory dysfunction (Chronic) Dysphagia (Chronic) "h/o esophageal stricture s/p dilation in past" Frequent falls (Chronic) Surgical History History of esophagogastroduodenoscopy (EGD) History of hip surgery s/p fall and fx Family History Other Cancer HTN (hypertension) Social History marital status: Single Current Living Situation: Alone Other Information That Helps Us Care for You: No Feels Safe at Home: Yes Safety Concerns: Feels Safe At This Time Smoking Status: Former smoker Do You Dip or Chew Tobacco: No Hx Alcohol Use: Yes Alcohol type: beer Alcohol Intake Frequency: 3 or more drinks per day Alcohol Intake Frequency Comment: 7-10 beers a day, uncertain which kind of beer Hx Substance Use: No Beliefs That Will Affect Care: None Communication Ability: Effective Review of Systems as stated per HPI Physical Exam 2 Vital Signs (Past 24 Hours): Last Vital Signs Temp 36.5 C 08/21/18 15:00 Pulse 65 08/21/18 15:00 Resp 16 08/21/18 15:00 BP 122/78 08/21/18 15:00 Pulse Ox 98 08/21/18 15:00 Gen: awake and alert, NAD HEENT: chronically ill appearing moist buccal mucosa Neck: Supple LNs: no palpable lymphadenopathy CV: S1 S2 RRR no murmurs appreciated Abd: +BS soft NT/ND. no palpable hepatosplenomegaly Ext: no edema, nontender neuro: alert and oriented x3 skin: healing laceration on forehead Results & Data Diagnostic Findings CT head 1. Right paramedian scalp contusion with trace subgaleal hematoma. Advanced diffuse parenchymal volume loss suggesting underlying neurodegenerative disease or chronic toxin exposure (for example, EtOH). 2. No acute intracranial pathology. 3. Chronic small vessel ischemic change and old lacunar infarct in the left caudate head. xray forearm no fracture
--- NOTE | 2018-08-21 21:11 | Ultrasound Report ---
US venous doppler LE RT CLINICAL HISTORY: 53 years-old Male presenting with cough, leukocytosis, thrombocytosis, recent leg s welling, r/o dvt. TECHNIQUE: Real-time grayscale and color and spectral Doppler ultrasound imaging of the veins of the right lower extremity was performed. Compression and augmentation were also utilized. COMPARISON: 07/30/2018. FINDINGS: RIGHT: Common femoral vein: Patent. Greater saphenous vein (superficial): Patent. Deep femoral vein: Patent. Femoral vein: Patent. Popliteal vein: Patent. Calf veins: Patent. Other: None. IMPRESSION: No evidence of deep venous thrombosis. Electronically signed by: Romeo Lema M.D. 08/21/2018 9:09 PM
--- NOTE | 2018-08-21 22:44 | XRay Report ---
XR chest 2V routine CLINICAL HISTORY: 53 years-old Male presenting with leukocytosis thrombcytosis, cough. TECHNIQUE: Portable upright AP view of the chest was obtained. COMPARISON: 08/03/2018. FINDINGS: Cardiomediastinal silhouette normal. Lungs are hyperinflated. Heterogeneity of lung parenchyma. No fo yesica opacity. No pleural effusion or pneumothorax. Evidence of multiple old left rib fractures. Osteop enia may be present. Upper abdomen normal. IMPRESSION: 1. Hyperinflation may suggest underlying emphysema or other chronic obstructive disease. No focal in filtrate to suggest pneumonia. Electronically signed by: Romeo Lema M.D. 08/21/2018 10:43 PM
[2018-08-22 06:15] LABS: Basophils # (auto) 0.04 K/uL (0-0.2); Basophils % (auto) 0.4 %; Eosinophils # (auto) 0.48 K/uL (0-0.5); Eosinophils % (auto) 4.6 %; Hemoglobin 11.8 g/dL (14.0-18.0); Immature Granulocytes # (auto) 0.06 K/uL (0.00-0.02); Immature Granulocytes % (auto) 0.6 %; Lymphocytes % (auto) 26.9 %; Mean Corpuscular Hgb Conc 34.7 g/dL (32-36); Mean Corpuscular Volume 96.9 fL (80-100); Mean Platelet Volume 8.4 fL (7.4-10.4); Monocytes # (auto) 1.17 K/uL (0.11-0.59); Monocytes % (auto) 11.2 %; Neutrophils # (auto) 5.87 K/uL (1.4-6.5); Neutrophils % (auto) 56.3 %; Platelet Count 461 K/uL (130-400); RDW Coefficient of Variation 12.9 % (11.5-14.5); RDW Standard Deviation 45.5 fL (36.4-46.3); Red Blood Count 3.51 M/uL (4.7-6.1); White Blood Count 10.42 K/uL (4.8-10.8)
[2018-08-22] MEDS: ACETAMINOPHEN 325 MG TAB PO PRN ×3 (06:16→20:18)
[2018-08-22 06:36] LABS: RBC Morphology Unremarkable
[2018-08-22 06:41] LABS: BUN Creatinine Ratio 24.1 (10-20); Blood Urea Nitrogen 9 mg/dl (7-18); Calcium 8.5 mg/dl (8.5-10.1); Carbon Dioxide 25 mmol/L (21-32); Chloride 103 mmol/L (98-107); Creatinine Clr Calc Pharmacy 170.3 ml/min; Est GFR (African American) > 150.0; Est GFR (Non-African American) 136.1; Glucose 89 mg/dl (70-99); Potassium 3.6 mmol/L (3.5-5.1); Sodium 134 mmol/L (136-145)
[2018-08-22 06:46] LABS: Ferritin 88.8 ng/ml (8-388); Iron 49 mcg/dl (35-175); Transferrin 242 mg/dl (200-360); Transferrin Percent Saturation 14 % (20-50)
--- NOTE | 2018-08-22 07:04 | Hospitalist Progress Note ---
Date of Service August 22, 2018 Assessment & Plan (1) Fall: Fall: per admitting service notes: This is a 53 year old M with significant PMH of ETOH Abuse, homelessness, HTN, Chronic hyponatremia, freq falls who presents to [facility] ED seconary to fall and hit head this evening. In ED pt noted to be intoxicated with Ethyl alcohol level 328.8. Pt suffered Frontal forehead laceration x 2 which were repaired; however CT scan brain revealed trace subgaleal hematoma. Given intoxication, recent fall, subgaleal hematoma and pt residing in [facility] patient will be admitted for further observation and placement. -- in the setting of alcohol intoxication management as noted below -- PT/OT eval: recommend Rehab Head Injury -- CT head noted -- Neuro consulted review of Ct scan done, no intracranial hemorrhage appreciated -- lacerations on the scalp sutured will need to be removed in 5-7 days -- stable neurologically -- ok to start Heparin as per Dr. Marin if needed Subgaleal hemorrhage: -- Neuro consulted review of Ct scan done, no intracranial hemorrhage appreciated recommend alcohol rehab referral monitor closely Alcohol intoxication: -alcohol cessation recommended -gabapentin taper given ETOH abuse - no signs of overt withdrawal Alcohol abuse: -as above Ambulatory dysfunction: -PT/OT recommends rehab Thrombocytosis - not present during admission last month - peripheral smear noted - consulted Hematology CXR ordered Iron, etc. ordered Hyponatremia: -Na 134, previous admission it was recommended patient follow a fluid restriction 1200ml with NACL tabs 1g tid - patient not taking salt tabs, doing fluid restriction as outpatient - Na on admission 134, remains > 130s just with fluids restriction -monitor Dementia: -Per CT: Advanced diffuse parenchymal volume loss suggesting underlying neurodegenerative disease or chronic toxin exposure (for example, EtOH). History of Hypertension - prescribed Amlodipine on discharge patient not taking - BP not at goal resume Amlodipine monitor DVT prophylaxis SCDs in light of galeal hemorrhage Disposition will need Rehab Placement (2) Forearm pain: xrays of BL forearm: no fracture Subjective ff up for fall, head trauma, alcohol intoxication resting in bed, comfortable, watching TV reports he is thirsty, requests fluid restriction to be discontinued denies headache, dizziness, nausea, changes with vision denies other new focal neuro symptoms no other symptoms Physical Exam 2 Vital Signs (Past 24 Hours): Last Vital Signs Temp 37.1 C 08/21/18 22:58 Pulse 73 08/21/18 22:58 Resp 17 08/21/18 22:58 BP 150/86 H 08/21/18 22:58 Pulse Ox 97 08/21/18 22:58 Physical Exam: General- oriented x 3, not in distress, speaks in sentences with no effort or accessory muscle use Head- sutured wound on the frontoparietal region: healing well excoration on the forehead: healing well Eyes- anicteric Neck- no JVD Lungs- clear BS BL Heart- normal rate, regular rhythm; no murmurs Abdomen- normal bowel sounds, nondistended, soft, nontender Extremities-(+) edema of the right lower leg: no erythema/warmth/tenderness left leg essentially normal Neuro- alert, oriented x 3; no gross focal neurologic deficits Skin- warm & dry Results & Data Laboratory Results all noted and reviewed _ (1) Fall Encounter type: initial encounter Qualified Code(s): W19.XXXA - Unspecified fall, initial encounter
[2018-08-22] MEDS: MULTIVITAMIN TAB PO SCH (07:52)
[2018-08-22] MEDS: THIAMINE HCL 100 MG TAB PO SCH (07:52)
[2018-08-22] MEDS: FOLIC ACID 1 MG TAB PO SCH (07:53)
[2018-08-22] MEDS: AMLODIPINE BESYLATE 5 MG TAB PO SCH (08:11)
[2018-08-22] MEDS: IBUPROFEN 200 MG TAB PO PRN ×2 (08:11→14:06)
[2018-08-22] MEDS: DOCUSATE SODIUM 100 MG CAP PO SCH (08:11)
[2018-08-22] MEDS ORDERED: GABAPENTIN 600 MG TAB PO SCH (12:00)
--- NOTE | 2018-08-22 15:59 | Hospitalist Progress Note ---
Date of Service August 22, 2018 Assessment & Plan (1) Fall: This is a 53 year old M with significant PMH of ETOH Abuse, homelessness, HTN, Chronic hyponatremia, freq falls who presents to [facility] ED seconary to fall and hit head in the evening of admission . In ED pt noted to be intoxicated with Ethyl alcohol level 328.8. Has ambulatory dysfunction likely secondary to long use of alcohol We will get PT and OT evaluation Most likely will need inpatient rehab Social service consulted (2) Forearm pain: xrays of BL forearm: no fracture Nothing specific (3) Closed head injury: Pt suffered Frontal forehead laceration x 2 which were repaired; however CT scan brain revealed trace subgaleal hematomarage Ct scan done, no intracranial hemorrhage appreciated Lacerations on the scalp sutured,will need to be removed in 5-7 days Appreciate neurology input and recommendation No symptoms of head injury as of today (4) Alcohol use disorder, severe, dependence: Alcohol intoxication: -Recurrent admission with alcohol intoxication and for withdrawal -alcohol cessation recommended -gabapentin taper given ETOH abuse - no signs of overt withdrawal -Does have electrolyte imbalance likely secondary to alcohol abuse -We will monitor electrolytes and replace as needed (5) Subgaleal hemorrhage: Subgaleal hemorrhage: -- Neuro consulted review of Ct scan done, no intracranial hemorrhage appreciated recommend alcohol rehab referral monitor closely (6) History of esophageal stricture: (7) Thrombocytosis: Platelet count is above 400 Monitor while in the Dementia: -Per CT: Advanced diffuse parenchymal volume loss suggesting underlying neurodegenerative disease or chronic toxin exposure (for example, EtOH). History of Hypertension - prescribed Amlodipine on discharge patient not taking - BP not at goal resume Amlodipine DVT prophylaxis SCDs in light of galeal hemorrhage Disposition will need Rehab Placement Subjective This is a 53 year old M with significant PMH of ETOH Abuse, homelessness,HTN, Chronic hyponatremia, freq falls who presents to [facility] ED seconary to fall and hit head this evening. 08/22 The patient was seen and examined the medical floor He complains to have nonspecific pain in the right thumb and adjoining area Denies any other symptoms whatsoever Physical Exam 2 Vital Signs (Past 24 Hours): Last Vital Signs Temp 36.4 C L 08/22/18 14:42 Pulse 79 08/22/18 14:42 Resp 18 08/22/18 14:42 BP 114/74 08/22/18 14:42 Pulse Ox 95 08/22/18 14:42 Physical Exam: No apparent distress at rest Constitutional: WD/WN, vitals as above Eyes: PERRL, conjunctivae normal, anicteric sclerae ENMT: external ear and nose normal, oropharynx normal Neck: trachea midline, no thyromegaly Respiratory: normal respiratory effort; no respiratory distress Auscultation: lungs clear to auscultation bilaterally Cardiovascular: Rate/Rhythm: regular rate and regular rhythm Heart Sounds: normal S1 and normal S2 Gastrointestinal (Abdomen): Inspection/Auscultation: abdomen normal to inspection and normal bowel sounds Percussion/Palpation: abdomen soft; abdomen nontender Neurologic: Alert, awake and oriented x3. Results & Data Laboratory Results Short CBC 08/22/18 Range/Units 05:52 WBC 10.42 (4.8-10.8) K/uL Hgb 11.8 L (14.0-18.0) g/dL Hct 34.0 L (42-52) % Plt Count 461 H (130-400) K/uL BMP 08/22/18 05:52 Sodium 134 L Potassium 3.6 Chloride 103 Carbon Dioxide 25 BUN 9 Creatinine 0.39 L Glucose 89 Calcium 8.5 Medications Administered Current Inpatient Medications Acetaminophen (Tylenol) 650 mg PO Q4H PRN PRN Reason: Pain or Fever Stop: 09/17/18 23:25 Last Admin: 08/22/18 06:16 Dose: 650 mg Amlodipine Besylate ([facility]asc) [facility] Stop: 09/21/18 08:59 Last Admin: 08/22/18 08:11 Dose: 5 mg Docusate Sodium (Colace) 100 mg PO BID [facility] Stop: 09/19/18 20:59 Last Admin: 08/22/18 08:11 Dose: 100 mg Folic Acid (Folvite) 1 mg PO QAM [facility] Stop: 09/18/18 08:59 Last Admin: 08/22/18 07:53 Dose: 1 mg Lorazepam (Ativan) 1 mg in 2 mls @ 2 mls/min IV UD PRN; Protocol PRN Reason: EtOH Withdrawl AWSS Score 6,7 Stop: 09/17/18 23:25 Lorazepam (Ativan) 2 mg in 4 mls @ 4 mls/min IV UD PRN; Protocol PRN Reason: EtOH Withdrawl AWSS Score 8,9 Stop: 09/17/18 23:25 Lorazepam (Ativan) 3 mg in 6 mls @ 4 mls/min IV ONCE PRN; Protocol PRN Reason: EtOH Withdrawl AWSS Score >=10 Stop: 09/17/18 23:25 Prochlorperazine 5 mg/ Syringe 5 mls @ 5 mls/min IV Q6H PRN PRN Reason: Nausea And Vomiting Stop: 09/17/18 23:25 Ibuprofen (Advil) 400 mg PO QID PRN PRN Reason: Pain Stop: 09/19/18 16:49 Last Admin: 08/22/18 14:06 Dose: 400 mg Multivitamins (Multivitamin Tab) 1 tab PO [facility] Stop: 09/18/18 08:59 Last Admin: 08/22/18 07:52 Dose: 1 tab Nitroglycerin (Nitrostat) 0.4 mg SL UD PRN PRN Reason: Chest Pain Stop: 09/17/18 23:25 Oxycodone HCl (Roxicodone Immediate Rel) 5 mg PO Q4H PRN PRN Reason: Pain Stop: 09/01/18 23:25 Last Admin: 08/21/18 08:30 Dose: 5 mg Thiamine HCl (Vitamin B-1) 100 [facility] Stop: 09/18/18 08:59 Last Admin: 08/22/18 07:52 Dose: 100 mg _ (1) Closed head injury Encounter type: initial encounter Qualified Code(s): S09.90XA - Unspecified injury of head, initial encounter (2) Fall Encounter type: initial encounter Qualified Code(s): W19.XXXA - Unspecified fall, initial encounter
[2018-08-22] MEDS: DOCUSATE SODIUM SYRUP 100 MG/10 ML UDC PO SCH (20:51)
[2018-08-23 06:45] LABS: BUN Creatinine Ratio 20.3 (10-20); Blood Urea Nitrogen 9 mg/dl (7-18); Calcium 8.3 mg/dl (8.5-10.1); Carbon Dioxide 23 mmol/L (21-32); Chloride 102 mmol/L (98-107); Creatinine Clr Calc Pharmacy 160.7 ml/min; Est GFR (African American) > 150.0; Glucose 90 mg/dl (70-99); Magnesium 1.7 mg/dl (1.8-2.4); Phosphorus 3.5 mg/dl (2.5-4.9); Potassium 3.7 mmol/L (3.5-5.1); Sodium 132 mmol/L (136-145)
[2018-08-23] MEDS: THIAMINE HCL 100 MG TAB PO SCH (07:48)
[2018-08-23] MEDS: MULTIVITAMIN TAB PO SCH (07:48)
[2018-08-23] MEDS: FOLIC ACID 1 MG TAB PO SCH (07:48)
[2018-08-23] MEDS: DOCUSATE SODIUM SYRUP 100 MG/10 ML UDC PO SCH ×2 (07:48→19:57)
[2018-08-23] MEDS: AMLODIPINE BESYLATE 5 MG TAB PO SCH (07:48)
[2018-08-23] MEDS: ACETAMINOPHEN 325 MG TAB PO PRN ×3 (07:52→19:18)
[2018-08-23] MEDS ORDERED: MAGNESIUM HYDROXIDE SUSP 30 ML UDC PO ONE (15:25)
--- NOTE | 2018-08-23 17:35 | Hospitalist Progress Note ---
Date of Service August 23, 2018 Assessment & Plan (1) Fall: This is a 53 year old M with significant PMH of ETOH Abuse, homelessness, HTN, Chronic hyponatremia, freq falls who presents to [facility] ED seconary to fall and hit head in the evening of admission . In ED pt noted to be intoxicated with Ethyl alcohol level 328.8. Has ambulatory dysfunction likely secondary to long use of alcohol We will get PT and OT evaluation Most likely will need inpatient rehab Social service consulted-no inpatient alcohol rehab facilities available for him Discussed with social service repeatedly today for placement in a personal care /skilled care facility He does not have any means to go to personal care and/or skilled care facility as I was informed Likely be discharged tomorrow (2) Forearm pain: xrays of BL forearm: no fracture Nothing specific (3) Closed head injury: Pt suffered Frontal forehead laceration x 2 which were repaired; however CT scan brain revealed trace subgaleal hematomarage Ct scan done, no intracranial hemorrhage appreciated Lacerations on the scalp sutured,will need to be removed in 5-7 days Appreciate neurology input and recommendation No symptoms of head injury as of today (4) Alcohol use disorder, severe, dependence: Alcohol intoxication: -Recurrent admission with alcohol intoxication and for withdrawal -alcohol cessation recommended -gabapentin taper given ETOH abuse - no signs of overt withdrawal -Does have electrolyte imbalance likely secondary to alcohol abuse -We will monitor electrolytes and replace as needed -Medically stable to be discharged (5) Subgaleal hemorrhage: Subgaleal hemorrhage: -- Neuro consulted review of Ct scan done, no intracranial hemorrhage appreciated recommend alcohol rehab referral monitor closely (6) History of esophageal stricture: (7) Thrombocytosis: Platelet count is above 400 Monitor while in the Dementia: -Per CT: Advanced diffuse parenchymal volume loss suggesting underlying neurodegenerative disease or chronic toxin exposure (for example, EtOH). History of Hypertension - prescribed Amlodipine on discharge patient not taking - BP not at goal resume Amlodipine DVT prophylaxis SCDs in light of galeal hemorrhage Disposition will need Rehab Placement Subjective This is a 53 year old M with significant PMH of ETOH Abuse, homelessness,HTN, Chronic hyponatremia, freq falls who presents to [facility] ED seconary to fall and hit head this evening. 08/22 The patient was seen and examined the medical floor He complains to have nonspecific pain in the right thumb and adjoining area Denies any other symptoms whatsoever 08/23 The patient was seen and examined in medical floor Medically he remained stable Physically he is very ataxic or wobbly on movement Discussed with patient and he is agreeable to go to inpatient rehab for alcoholism Physical Exam 2 Vital Signs (Past 24 Hours): Last Vital Signs Temp 37 C 08/23/18 15:10 Pulse 74 08/23/18 15:10 Resp 18 08/23/18 15:10 BP 137/86 08/23/18 15:10 Pulse Ox 97 08/23/18 15:10 Constitutional: WD/WN, vitals as above Eyes: PERRL, conjunctivae normal, anicteric sclerae ENMT: external ear and nose normal, oropharynx normal Neck: trachea midline, no thyromegaly Respiratory: normal respiratory effort; no respiratory distress Auscultation: lungs clear to auscultation bilaterally Cardiovascular: Rate/Rhythm: regular rate and regular rhythm Heart Sounds: normal S1 and normal S2 Gastrointestinal (Abdomen): Inspection/Auscultation: abdomen normal to inspection and normal bowel sounds Percussion/Palpation: abdomen soft; abdomen nontender Results & Data Laboratory Results [facility] 08/23/18 05:26 Sodium 132 L Potassium 3.7 Chloride 102 Carbon Dioxide 23 BUN 9 Creatinine 0.42 L Glucose 90 Calcium 8.3 L Medications Administered Current Inpatient Medications Acetaminophen (Tylenol) 650 mg PO Q4H PRN PRN Reason: Pain or Fever Stop: 09/17/18 23:25 Last Admin: 08/23/18 14:10 Dose: 650 mg Amlodipine Besylate ([facility]asc) [facility] Stop: 09/21/18 08:59 Last Admin: 08/23/18 07:48 Dose: 5 mg Docusate Sodium (Colace) 100 mg PO BID [facility] Stop: 09/21/18 20:29 Last Admin: 08/23/18 07:48 Dose: 100 mg Folic Acid (Folvite) 1 mg PO QAM [facility] Stop: 09/18/18 08:59 Last Admin: 08/23/18 07:48 Dose: 1 mg Lorazepam (Ativan) 1 mg in 2 mls @ 2 mls/min IV UD PRN; Protocol PRN Reason: EtOH Withdrawl AWSS Score 6,7 Stop: 09/17/18 23:25 Lorazepam (Ativan) 2 mg in 4 mls @ 4 mls/min IV UD PRN; Protocol PRN Reason: EtOH Withdrawl AWSS Score 8,9 Stop: 09/17/18 23:25 Lorazepam (Ativan) 3 mg in 6 mls @ 4 mls/min IV ONCE PRN; Protocol PRN Reason: EtOH Withdrawl AWSS Score >=10 Stop: 09/17/18 23:25 Prochlorperazine 5 mg/ Syringe 5 mls @ 5 mls/min IV Q6H PRN PRN Reason: Nausea And Vomiting Stop: 09/17/18 23:25 Ibuprofen (Advil) 400 mg PO QID PRN PRN Reason: Pain Stop: 09/19/18 16:49 Last Admin: 08/22/18 14:06 Dose: 400 mg Multivitamins (Multivitamin Tab) 1 tab PO QAM [facility] Stop: 09/18/18 08:59 Last Admin: 08/23/18 07:48 Dose: 1 tab Nitroglycerin (Nitrostat) 0.4 mg SL UD PRN PRN Reason: Chest Pain Stop: 09/17/18 23:25 Oxycodone HCl (Roxicodone Immediate Rel) 5 mg PO Q4H PRN PRN Reason: Pain Stop: 09/01/18 23:25 Last Admin: 08/21/18 08:30 Dose: 5 mg Thiamine HCl (Vitamin B-1) 100 mg PO QAM [facility] Stop: 09/18/18 08:59 Last Admin: 08/23/18 07:48 Dose: 100 mg _ (1) Fall Encounter type: initial encounter Qualified Code(s): W19.XXXA - Unspecified fall, initial encounter (2) Closed head injury Encounter type: initial encounter Qualified Code(s): S09.90XA - Unspecified injury of head, initial encounter
[2018-08-23 18:13] LABS: Platelet Count 442 K/uL (130-400)
[2018-08-24] MEDS: ACETAMINOPHEN 325 MG TAB PO PRN ×2 (00:26→10:14)
[2018-08-24 06:23] LABS: BUN Creatinine Ratio 23.2 (10-20); Blood Urea Nitrogen 9 mg/dl (7-18); Calcium 8.7 mg/dl (8.5-10.1); Carbon Dioxide 24 mmol/L (21-32); Chloride 101 mmol/L (98-107); Creatinine Clr Calc Pharmacy 164.6 ml/min; Est GFR (African American) > 150.0; Est GFR (Non-African American) 133.3; Glucose 85 mg/dl (70-99); Potassium 3.7 mmol/L (3.5-5.1); Sodium 131 mmol/L (136-145)
[2018-08-24] MEDS: AMLODIPINE BESYLATE 5 MG TAB PO SCH (08:10)
[2018-08-24] MEDS: FOLIC ACID 1 MG TAB PO SCH (08:10)
[2018-08-24] MEDS: MULTIVITAMIN TAB PO SCH (08:10)
[2018-08-24] MEDS: DOCUSATE SODIUM SYRUP 100 MG/10 ML UDC PO SCH (08:11)
[2018-08-24] MEDS: THIAMINE HCL 100 MG TAB PO SCH (08:11)
--- NOTE | 2018-08-24 11:33 | Hospitalist Progress Note ---
Date of Service August 24, 2018 Assessment & Plan (1) Fall: This is a 53 year old M with significant PMH of ETOH Abuse, homelessness, HTN, Chronic hyponatremia, freq falls who presents to [facility] seconary to fall and hit head in the evening of admission . In ED pt noted to be intoxicated with Ethyl alcohol level 328.8. Has ambulatory dysfunction likely secondary to long use of alcohol We will get PT and OT evaluation Most likely will need inpatient rehab Social service consulted-no inpatient alcohol rehab facilities available for him Discussed with social service repeatedly today for placement in a personal care /skilled care facility He does not have any means to go to personal care and/or skilled care facility as I was informed Discharge today (2) Forearm pain: xrays of BL forearm: no fracture Nothing specific Denies any more pain (3) Closed head injury: Pt suffered Frontal forehead laceration x 2 which were repaired; however CT scan brain revealed trace subgaleal hematomarage Ct scan done, no intracranial hemorrhage appreciated Lacerations on the scalp sutured,will need to be removed in 5-7 days Appreciate neurology input and recommendation No symptoms of head injury (4) Alcohol use disorder, severe, dependence: Alcohol intoxication: -Recurrent admission with alcohol intoxication and for withdrawal -alcohol cessation recommended -gabapentin taper given ETOH abuse - no signs of overt withdrawal -Does have electrolyte imbalance likely secondary to alcohol abuse -We will monitor electrolytes and replace as needed -Medically stable to be discharged -Strongly advised to quit drinking (5) Subgaleal hemorrhage: Subgaleal hemorrhage: -- Neuro consulted review of Ct scan done, no intracranial hemorrhage appreciated recommend alcohol rehab referral monitor closely-no recurrence of any symptoms (6) History of esophageal stricture: (7) Thrombocytosis: Platelet count is above 400 Monitor while in the-remains stable Dementia: -Per CT: Advanced diffuse parenchymal volume loss suggesting underlying neurodegenerative disease or chronic toxin exposure (for example, EtOH). History of Hypertension - prescribed Amlodipine on discharge patient not taking - BP not at goal resume Amlodipine DVT prophylaxis SCDs in light of galeal hemorrhage Disposition will need Rehab Placement Subjective This is a 53 year old M with significant PMH of ETOH Abuse, homelessness,HTN, Chronic hyponatremia, freq falls who presents to [facility] seconary to fall and hit head this evening. 08/22 The patient was seen and examined the medical floor He complains to have nonspecific pain in the right thumb and adjoining area Denies any other symptoms whatsoever 08/23 The patient was seen and examined in medical floor Medically he remained stable Physically he is very ataxic or wobbly on movement Discussed with patient and he is agreeable to go to inpatient rehab for alcoholism 08/24 The patient was seen and examined the medical floor He has been feeling a lot better today Denies any symptoms He still has unsteady gait Physical Exam 2 Vital Signs (Past 24 Hours): Last Vital Signs Temp 36.9 C 08/24/18 07:11 Pulse 67 08/24/18 07:11 Resp 20 08/24/18 07:11 BP 165/91 H 08/24/18 07:11 Pulse Ox 96 08/24/18 07:11 Constitutional: WD/WN, vitals as above Eyes: PERRL, conjunctivae normal, anicteric sclerae ENMT: external ear and nose normal, oropharynx normal Neck: trachea midline, no thyromegaly Respiratory: normal respiratory effort; no respiratory distress Auscultation: lungs clear to auscultation bilaterally Cardiovascular: Rate/Rhythm: regular rate and regular rhythm Heart Sounds: normal S1 and normal S2 Gastrointestinal (Abdomen): Inspection/Auscultation: abdomen normal to inspection and normal bowel sounds Percussion/Palpation: abdomen soft; abdomen nontender Results & Data Laboratory Results Short CBC 08/23/18 Range/Units 17:52 Plt Count 442 H (130-400) K/uL BMP 08/24/18 05:14 Sodium 131 L Potassium 3.7 Chloride 101 Carbon Dioxide 24 BUN 9 Creatinine 0.41 L Glucose 85 Calcium 8.7 Medications Administered Current Inpatient Medications Acetaminophen (Tylenol) 650 mg PO Q4H PRN PRN Reason: Pain or Fever Stop: 09/17/18 23:25 Last Admin: 08/24/18 10:14 Dose: 650 mg Amlodipine Besylate ([facility]) [facility] Stop: 09/21/18 08:59 Last Admin: 08/24/18 08:10 Dose: 5 mg Docusate Sodium (Colace) 100 mg PO BID [facility] Stop: 09/21/18 20:29 Last Admin: 08/24/18 08:11 Dose: 100 mg Folic Acid (Folvite) 1 mg PO QAM [facility] Stop: 09/18/18 08:59 Last Admin: 08/24/18 08:10 Dose: 1 mg Lorazepam (Ativan) 1 mg in 2 mls @ 2 mls/min IV UD PRN; Protocol PRN Reason: EtOH Withdrawl AWSS Score 6,7 Stop: 09/17/18 23:25 Lorazepam (Ativan) 2 mg in 4 mls @ 4 mls/min IV UD PRN; Protocol PRN Reason: EtOH Withdrawl AWSS Score 8,9 Stop: 09/17/18 23:25 Lorazepam (Ativan) 3 mg in 6 mls @ 4 mls/min IV ONCE PRN; Protocol PRN Reason: EtOH Withdrawl AWSS Score >=10 Stop: 09/17/18 23:25 Prochlorperazine 5 mg/ Syringe 5 mls @ 5 mls/min IV Q6H PRN PRN Reason: Nausea And Vomiting Stop: 09/17/18 23:25 Ibuprofen (Advil) 400 mg PO QID PRN PRN Reason: Pain Stop: 09/19/18 16:49 Last Admin: 08/22/18 14:06 Dose: 400 mg Multivitamins (Multivitamin Tab) 1 tab PO [facility] Stop: 09/18/18 08:59 Last Admin: 08/24/18 08:10 Dose: 1 tab Nitroglycerin (Nitrostat) 0.4 mg SL UD PRN PRN Reason: Chest Pain Stop: 09/17/18 23:25 Oxycodone HCl (Roxicodone Immediate Rel) 5 mg PO Q4H PRN PRN Reason: Pain Stop: 09/01/18 23:25 Last Admin: 08/21/18 08:30 Dose: 5 mg Thiamine HCl (Vitamin B-1) 100 mg PO QAM [facility] Stop: 09/18/18 08:59 Last Admin: 08/24/18 08:11 Dose: 100 mg _ (1) Fall Encounter type: initial encounter Qualified Code(s): W19.XXXA - Unspecified fall, initial encounter (2) Closed head injury Encounter type: initial encounter Qualified Code(s): S09.90XA - Unspecified injury of head, initial encounter
--- NOTE | 2018-08-25 07:59 | Discharge Summary ---
Date of Service August 25, 2018 Admission HPI Per Admitting Provider This is a 53 year old M with significant PMH of ETOH Abuse, homelessness,HTN, Chronic hyponatremia, freq falls who presents to [facility] ED seconary to fall and hit head this evening. Patient currently residing at [facility] room 119. Drinks 7-10 beers daily, last drink today. Was going to beer store and while walking fell off sidewalk and struck head. Does not recall falling and hitting head. Complains of headache, dizziness, neck pain, but denies blurry vision, diplopia, change in hearing, recent f/c/s, URI sx, chest pain, sob, n/v/d. Of note pt recently hospitalized 07/31-07/30/18 secondary to Alcohol intoxication, electrolyte abnormalities and fall. He was discharged to [facility] acute rehab facility and was discharged on 08/16/18 to [facility] where he has been residing every since. Patient states he is not taking any medications at home. Admission Exam Per Admitting Provider Vital Signs (Past 24 Hours): Last Vital Signs Temp 36.1 C L 08/18/18 18:45 Pulse 66 08/18/18 18:45 Resp 22 08/18/18 18:45 BP 123/80 08/18/18 18:45 Pulse Ox 96 08/18/18 18:45 Physical Exam: Gen: Unkempt M, sitting in bed, intoxicated, [place], able to communicate effectively Head: Normocephalic, + Frontal forehead lac with 3 sutures intact with dried blood, + Laceration above right eye brow Eyes: Sclera normal, no conjunctival injection, PERRLA, EOMI ENT: Gross hearing intact, normal pharynx, mucous membranes dry Neck: supple, no adenopathy, No JVD, no bruit, Resp: Clear to auscultation b/l, no wheeze, rales, rhonchi. 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 Extremities: No edema bilaterally Skin: warm, moist, no rash, mild turgor, cap refill < 2sec Neuro: Alert and oriented x 3, speech mostly normal but occasionally garbled, very [place], flat mood/affect, cran nerve 2-12 intact grossly : deferred Principal Diagnosis Status post fall with closed head injury, ambulatory dysfunction, alcohol abuse disorder with recurrent admissions for withdrawal and/or intoxication Discharge Exam Constitutional WD/WN, vitals as above Eyes PERRL, conjunctivae normal, anicteric sclerae ENMT external ear and nose normal, oropharynx normal Neck trachea midline, no thyromegaly Respiratory normal respiratory effort; no respiratory distress Auscultation: lungs clear to auscultation bilaterally Cardiovascular Rate/Rhythm: regular rate and regular rhythm Heart Sounds: normal S1 and normal S2 Gastrointestinal (Abdomen) Inspection/Auscultation: abdomen normal to inspection and normal bowel sounds Percussion/Palpation: abdomen soft; abdomen nontender Discharge Data Allergies Allergy/AdvReac Type Severity Reaction Status Date / Time Penicillins AdvReac Mild TIRED Verified 08/18/18 18:09 Consultations 08/18/18 19:59 ED Decision to Admit Stat 08/18/18 23:26 Consult Case Management - Discharge Planning Routine Consult Neurology Routine 08/20/18 16:51 Consult Hematology Routine Ordered Studies 08/18/18 17:48 CT cervical spine wo con Stat CT head/brain wo con Stat 08/21/18 19:54 US venous doppler LE RT Stat Hospital Course (1) Fall: This is a 53 year old M with significant PMH of ETOH Abuse, homelessness, HTN, Chronic hyponatremia, freq falls who presents to [facility] ED [place] to fall and hit head in the evening of admission . In ED pt noted to be intoxicated with Ethyl alcohol level 328.8. Has ambulatory dysfunction likely secondary to long use of alcohol We will get PT and OT evaluation Most likely will need inpatient rehab Social service consulted-no inpatient alcohol rehab facilities available for him Discussed with social service repeatedly today for placement in a personal care /skilled care facility He does not have any means to go to personal care and/or skilled care facility as I was informed Discharge today (2) Forearm pain: xrays of BL forearm: no fracture Nothing specific Denies any more pain (3) Closed head injury: Pt suffered Frontal forehead laceration x 2 which were repaired; however CT scan brain revealed trace subgaleal hematomarage Ct scan done, no intracranial hemorrhage appreciated Lacerations on the scalp sutured,will need to be removed in 5-7 days Appreciate neurology input and recommendation No symptoms of head injury (4) Alcohol use disorder, severe, dependence: Alcohol intoxication: -Recurrent admission with alcohol intoxication and for withdrawal -alcohol cessation recommended -gabapentin taper given ETOH abuse - no signs of overt withdrawal -Does have electrolyte imbalance likely secondary to alcohol abuse -We will monitor electrolytes and replace as needed -Medically stable to be discharged -Strongly advised to quit drinking (5) Subgaleal hemorrhage: Subgaleal hemorrhage: -- Neuro consulted review of Ct scan done, no intracranial hemorrhage appreciated recommend alcohol rehab referral monitor closely-no recurrence of any symptoms (6) History of esophageal stricture: (7) Thrombocytosis: Platelet count is above 400 Monitor while in the-remains stable Dementia: -Per CT: Advanced diffuse parenchymal volume loss suggesting underlying neurodegenerative disease or chronic toxin exposure (for example, EtOH). History of Hypertension - prescribed Amlodipine on discharge patient not taking - BP not at goal resume Amlodipine DVT prophylaxis SCDs in light of galeal hemorrhage Disposition will need Rehab Placement Total Time Total Time Spent Total Time Spent (In Minutes): 35 minutes Total Time Includes: Examination of the Patient, Discharge Planning and Medication Reconciliation Discharge Plan Discharge Items Patient Disposition: Home - Self-Care Reason For Visit: CONCUSSION Discharge Diagnosis: Status post fall with closed head injury, ambulatory dysfunction, alcohol abuse disorder with recurrent admissions for withdrawal and /or intoxication Condition: Fair Discharge Goals: Decrease discomfort, Improve disease control and Improve function Activity: Resume your previous activity Activity Comment: Please take extra precaution to avoid fall Non-emergency contact: Primary Care Provider Call non-emergency contact if: you have any medication questions and your symptoms worsen Follow-up/Referrals: SELF,REFERRED [Staff Physician] - (Please make an appointment with your primary care physician in 1 week) Diet: Regular Fluids: 1500ml (6 cups) Addtl Provider Instructions: Please take extra precaution to avoid fall Prescriptions: New thiamine HCl (vitamin B1) [Vitamin B-1] 100 mg Tablet 100 mg PO QAM 30 Days Qty: 30 RF: 0 amlodipine [Norvasc] 5 mg Tablet 5 mg PO QAM 30 Days Qty: 30 RF: 0 folic acid 1 mg Tablet 1 mg PO QAM 30 Days Qty: 30 RF: 0 No Action No Known Home Medications RF: 0 Stand-Alone Forms: My [facility] Discharge Orders: Discharge Order (Routine); Ordered 08/24/18 Ordered By: Wolf Fleming Admission Data Admit Date/Time: 08/20/18 18:52 Attending Provider: Wolf Fleming Admit Provider: Tung Arana Primary Care Provider: PCP,NO Other Providers: Tung Arana ; Roxana Thakur ; David Ji ; Roxana Thomas ; Mame Estrada ; Carlos Marin ; Idalia Messina ; Oriana Yun ; Erasmo Kessler ; Diana Tesfaye ; Romario Ratliff Service: Medical Other Interventions: Discharge Summary Assessment (RN) Last Done: 08/24/18 12:15 DC Date/Time DO NOT enter until pt leaves facility: 08/24/18 12:50
== END 2018-08-24 12:50 | disposition home or self-care (01) | DRG 86 ==
LOC: ED 17:31 → 2W 17:31 → SUATTDRO 22:09 → 2W 22:39 → 4E 08-20 22:30

== ENCOUNTER 2018-11-23 19:09 | Inpatient (IN) ==
--- OUTSIDE RECORDS SUMMARY | 2018-11-23 19:12 | External Medical Summary | Continuity of Care Document ---
:1965 Author Name Segundo Diaz, Provider Address Unavailable Unavailable , Care Team Providers Name Role Phone Olesya Spears Unavailable [email or web address], [email or web address] Unavailable Unavailable Problems Active medical history not documented Allergies and Adverse Reactions Allergy history not documented Medications Medications not documented Procedures Procedures not documented Immunizations Immunizations not documented Plan of Treatment Planned Encounters Appointment; Olesya Zhang CRNP Start: 28-Nov-2018 10:00 R equest Planned Observations Planned Goals not documented Results No Known Results Results not documented Encounters Appointment; Olesya Zhang CRNP 28-Nov-2018 10:00 Encounter Diagnosis: Problem not documented
--- NOTE | 2018-11-23 19:52 | Emergency Department Note ---
History of Present Illness General Chief complaint: Hip Pain Stated complaint: LEFT HIP PAIN Time Seen by Provider: 11/23/18 19:16 History of Present Illness Maximum Pain Intensity: 8 This is a 53-year-old male that presents to the emergency department via private vehicle accompanied by 2 individuals with complaints of "left hip pain". The patient notes that to 3 days ago he began with left anterior hip pain. He notes of spontaneous and no identified trauma or injury that he is aware of. He notes it is worse with movements and ambulation. He denies any abdominal pain, back pain, fevers, chills, chest pain, shortness of breath or testicular pain. He notes it is not worse with palpation but only with movements. He rates the pain as an 8/10. He notes similar sensation on the other hip when he fractured it a few years ago. Home Medications Home Medications Medication Instructions Recorded Confirmed Type No Known Home Medications 10/28/18 11/23/18 History Allergies Allergy/AdvReac Type Severity Reaction Status Date / Time Penicillins AdvReac Mild TIRED Verified 10/28/18 22:51 Past Med/Surg History Medical History Chronic hyponatremia History of esophageal stricture History of esophageal dilatation Hx of fracture of hip Hypertension (Chronic) Alcoholism (Chronic) Ambulatory dysfunction (Chronic) Dysphagia (Chronic) "h/o esophageal stricture s/p dilation in past" Frequent falls (Chronic) Surgical History History of esophagogastroduodenoscopy (EGD) History of hip surgery s/p fall and fx Family History Other Cancer Hypertension Social History Preferred Language: Micronesian Communication Ability: Effective Visual Impairment: No Limitations Hearing Ability: Hard of Hearing Slitter Scorer Required: No Beliefs That Will Affect Care: None marital status: Single Current Living Situation: Alone and Homeless Feels Safe at Home: Yes Safety Concerns: Feels Safe At This Time Smoking Status: Former smoker Hx Alcohol Use: Yes Alcohol type: beer Alcohol Intake Frequency Comment: 7-10 beers a day, uncertain which kind of beer Hx Substance Use: No Review of Systems A total of 10 systems reviewed and were otherwise negative Physical Exam Vital Signs Vital Signs - 24 hr 11/23/18 19:13 11/23/18 21:47 11/24/18 00:13 Temperature 36.6 C Temperature Source Oral Sepsis Recent Fever Within 48 Hours No Sepsis New/Unexplained Change in Mental Status No Sepsis Action Taken by Nursing No Action Required Pulse Rate 78 Pulse Rate [Finger] 76 75 Pulse Rhythm Regular Pulse Rhythm [Finger] Pulse Strength Normal Respiratory Rate 18 18 14 Respiratory Effort / Characteristics Non-Labored Spontaneous Respiratory Depth Normal Normal Respiratory Pattern Regular Blood Pressure 163/89 H Blood Pressure [Left Arm] 138/81 127/77 Blood Pressure [Right Arm] Blood Pressure Mean 113 Blood Pressure Mean [Left Arm] 100 93 Blood Pressure Mean [Right Arm] Blood Pressure Position Sitting Blood Pressure Position [Left Arm] Blood Pressure Position [Right Arm] Pulse Oximetry 97 95 94 Oxygen Delivery Method Room Air Room Air Room Air 11/24/18 02:21 11/24/18 02:44 11/24/18 03:00 Temperature 36.4 C L Temperature Source Oral Sepsis Recent Fever Within 48 Hours Sepsis New/Unexplained Change in Mental Status Sepsis Action Taken by Nursing Pulse Rate Pulse Rate [Finger] 75 81 Pulse Rhythm Pulse Rhythm [Finger] Regular Pulse Strength Respiratory Rate 14 20 Respiratory Effort / Characteristics Non-Labored Spontaneous Non-Labored Spontaneous Respiratory Depth Normal Normal Respiratory Pattern Regular Regular Blood Pressure Blood Pressure [Left Arm] 120/84 Blood Pressure [Right Arm] 158/93 H Blood Pressure Mean Blood Pressure Mean [Left Arm] 96 Blood Pressure Mean [Right Arm] 114 Blood Pressure Position Blood Pressure Position [Left Arm] Blood Pressure Position [Right Arm] Lying Pulse Oximetry 98 96 Oxygen Delivery Method Room Air Room Air Room Air 11/24/18 07:31 11/24/18 08:34 Temperature 36.9 C Temperature Source Oral Sepsis Recent Fever Within 48 Hours Sepsis New/Unexplained Change in Mental Status Sepsis Action Taken by Nursing Pulse Rate Pulse Rate [Finger] 78 Pulse Rhythm Pulse Rhythm [Finger] Pulse Strength Respiratory Rate 20 Respiratory Effort / Characteristics Non-Labored Respiratory Depth Normal Respiratory Pattern Regular Blood Pressure Blood Pressure [Left Arm] 176/92 H Blood Pressure [Right Arm] Blood Pressure Mean Blood Pressure Mean [Left Arm] 120 Blood Pressure Mean [Right Arm] Blood Pressure Position Blood Pressure Position [Left Arm] Lying Blood Pressure Position [Right Arm] Pulse Oximetry 98 Oxygen Delivery Method Room Air Room Air VITAL SIGNS - Vital signs and nursing notes were reviewed. Hypertensive, otherwise stable. GENERAL -53-year-old male appearing his stated age who is in no acute distress. He is sitting in a wheelchair upright upon my entrance into the exam room. Communicates well with provider and answers questions appropriately. The patient notes he is hard of hearing and therefore I have to medicate very closely in regard to distance from the patient. Patient does smell of alcohol. SKIN - Without rashes. The skin overlying the left hip is unremarkable. There is no deformity, break in the integument, edema, bruising or other abnormality. HEAD - NC/AT. EYES - Sclera anicteric. EARS - No deformities of external structures noted on gross examination bilaterally. No pain elicited with palpation of the tragus bilaterally. External auditory canals without discharge or otorrhea. Tympanic membranes pearly geiger without retraction or bulging. No fluid or purulent material visualized behind the TM. Handle of malleus, umbo, cone of light, pars tensa/flaccid all easily visualized. NOSE - Midline and without cyanosis. No epistaxis or purulent drainage noted. Septum midline without deviation or septal hematoma noted. MOUTH/OROPHARYNX - Without perioral cyanosis. Buccal mucosa pink and moist and without leukoplakia. Tongue midline with equal elevation of palate bilaterally. No tonsillar hypertrophy, erythema, or exudates noted. Fair dentition noted. NECK - Neck with FROM. Supple to palpation. No lymphadenopathy noted. No nuchal rigidity. LUNGS - Chest wall symmetric without accessory muscle use, intercostals retractions, or central cyanosis. Normal vesicular breath sounds CTA B/L. No wheezes, rales, or rhonchi appreciated. CARDIAC - RRR with S1/S2. No murmur, rubs, or gallops appreciated. ABDOMEN - Abdominal contour normal without pulsations or visible masses. BS normoactive all four quadrants. No tenderness, palpable masses, hepatosplenomegaly, or ascites noted. EXTREMITIES - No clubbing or peripheral cyanosis. No pretibial edema present. Skin as above. There is no reproducible tenderness in the left greater trochanter, left anterior hip or thigh region. There is no pain with passive flexion of the left hip. +5/5 strength noted in UE/LE bilaterally. NEUROLOGIC - Cranial nerves II through XII grossly intact. Sensory intact to light touch throughout. PSYCH - A&Ox3 and cooperates fully with examiner. Pt is very pleasant and interacts well with examiner. : There is no abnormality to the scrotum or penis as identified. No evidence of torsion. Course Administered Medications Acetaminophen (Tylenol) 650 mg PO Q4H PRN PRN Reason: pain/fever Stop: 12/24/18 02:42 Last Admin: 11/24/18 09:20 Dose: 650 mg Documented by: [id number] Enoxaparin Sodium (Lovenox) 40 mg SQ QAM YOMAIRA Stop: 12/24/18 08:59 Last Admin: 11/24/18 09:20 Dose: 40 mg Documented by: [id number] Ketorolac Tromethamine (Toradol) 15 mg IV Q6H PRN PRN Reason: Pain Stop: 11/29/18 02:42 Last Admin: 11/24/18 08:19 Dose: 15 mg Documented by: [id number] Discontinued Medications Ketorolac Tromethamine (Toradol) 10 mg IV NOW STA Stop: 11/24/18 00:02 Last Admin: 11/24/18 00:22 Dose: 10 mg Documented by: [id number] Oxycodone HCl (Roxicodone Immediate Rel) 5 mg PO NOW STA Stop: 11/23/18 20:43 Last Admin: 11/23/18 20:45 Dose: 5 mg Documented by: [id number] Medical Decision Making Laboratory Data Result diagrams: 11/24/18 06:35 11/24/18 06:35 Lab Results 11/23/18 11/23/18 11/23/18 Range/Units 21:48 21:56 21:56 WBC 7.81 (4.8-10.8) K/uL RBC 4.07 L (4.7-6.1) M/uL Hgb 12.2 L (14.0-18.0) g/dL Hct 35.8 L (42-52) % MCV 88.0 (80-100) fL MCH 30.0 (25-34) pg MCHC 34.1 (32-36) g/dL RDW Std Deviation 51.2 H (36.4-46.3) fL RDW Coeff of Luis 15.8 H (11.5-14.5) % Plt Count 267 (130-400) K/uL MPV 7.9 (7.4-10.4) fL Immature Gran % (Auto) 0.3 % Neut % (Auto) 69.8 % Lymph % (Auto) 20.4 % [place] % (Auto) 7.6 % Eos % (Auto) 1.0 % Baso % (Auto) 0.9 % Immature Gran # (Auto) 0.02 (0.00-0.02) K/uL Neut # (Auto) 5.46 (1.4-6.5) K/uL Lymph # (Auto) 1.59 (1.2-3.4) K/uL [place] # (Auto) 0.59 (0.11-0.59) K/uL Eos # (Auto) 0.08 (0-0.5) K/uL Baso # (Auto) 0.07 (0-0.2) K/uL ESR 48 H (0-14) mm/hr PT (9.0-12.0) Seconds INR (0.9-1.1) Sodium (136-145) mmol/L Potassium (3.5-5.1) mmol/L Chloride (98-107) mmol/L Carbon Dioxide (21-32) mmol/L Anion Gap (3-11) BUN (7-18) mg/dl Creatinine (0.6-1.4) mg/dl Est Cr Clr Drug Dosing ml/min Est GFR ( Amer) Est GFR (Non-Af Amer) BUN/Creatinine Ratio (10-20) Glucose (70-99) mg/dl Calcium (8.5-10.1) mg/dl Total Bilirubin (0.2-1) mg/dl AST (15-37) U/L ALT (12-78) U/L Alkaline Phosphatase (45-117) U/L Total Creatine Kinase (39-308) U/L C-Reactive Protein (0-0.29) mg/dl Total Protein (6.4-8.2) gm/dl Albumin (3.4-5.0) gm/dl Globulin (2.5-4.0) gm/dl Albumin/Globulin Ratio (0.9-2) Urine Color Yellow Urine Appearance Clear (Clear) Urine pH 6.0 (4.5-7.5) Ur Specific [place] 1.009 (1.000-1.030) Urine Protein Negative (Negative) Urine Glucose (UA) Negative (Negative) Urine Ketones Trace H (Negative) Urine Blood Negative (Negative) Urine Nitrite Negative (Negative) Urine Bilirubin Negative (Negative) Urine Urobilinogen Negative (Negative) Ur Leukocyte Esterase Negative (Negative) Ethyl Alcohol mg/dL (0-3) mg/dl Lyme Disease IgG Ab (Negative) Lyme Disease IgM Ab (Negative) 11/23/18 11/23/18 11/23/18 Range/Units 21:56 21:56 21:56 WBC (4.8-10.8) K/uL RBC (4.7-6.1) M/uL Hgb (14.0-18.0) g/dL Hct (42-52) % MCV (80-100) fL MCH (25-34) pg MCHC (32-36) g/dL RDW Std Deviation (36.4-46.3) fL RDW Coeff of Luis (11.5-14.5) % Plt Count (130-400) K/uL MPV (7.4-10.4) fL Immature Gran % (Auto) % Neut % (Auto) % Lymph % (Auto) % [place] % (Auto) % Eos % (Auto) % Baso % (Auto) % Immature Gran # (Auto) (0.00-0.02) K/uL Neut # (Auto) (1.4-6.5) K/uL Lymph # (Auto) (1.2-3.4) K/uL [place] # (Auto) (0.11-0.59) K/uL Eos # (Auto) (0-0.5) K/uL Baso # (Auto) (0-0.2) K/uL ESR (0-14) mm/hr PT (9.0-12.0) Seconds INR (0.9-1.1) Sodium 136 (136-145) mmol/L Potassium 4.2 (3.5-5.1) mmol/L Chloride 103 (98-107) mmol/L Carbon Dioxide 25 (21-32) mmol/L Anion Gap 8.0 (3-11) BUN 5 L (7-18) mg/dl Creatinine 0.56 L (0.6-1.4) mg/dl Est Cr Clr Drug Dosing 125.8 ml/min Est GFR ( Amer) 135.9 Est GFR (Non-Af Amer) 117.3 BUN/Creatinine Ratio 8.2 L (10-20) Glucose 77 (70-99) mg/dl Calcium 8.6 (8.5-10.1) mg/dl Total Bilirubin 0.4 (0.2-1) mg/dl AST 30 (15-37) U/L ALT 15 (12-78) U/L Alkaline Phosphatase 127 H (45-117) U/L Total Creatine Kinase (39-308) U/L C-Reactive Protein < 0.29 (0-0.29) mg/dl Total Protein 7.4 (6.4-8.2) gm/dl Albumin 3.5 (3.4-5.0) gm/dl Globulin 3.9 (2.5-4.0) gm/dl Albumin/Globulin Ratio 0.9 (0.9-2) Urine Color Urine Appearance (Clear) Urine pH (4.5-7.5) Ur Specific [place] (1.000-1.030) Urine Protein (Negative) Urine Glucose (UA) (Negative) Urine Ketones (Negative) Urine Blood (Negative) Urine Nitrite (Negative) Urine Bilirubin (Negative) Urine Urobilinogen (Negative) Ur Leukocyte Esterase (Negative) Ethyl Alcohol mg/dL 258.0 H (0-3) mg/dl Lyme Disease IgG Ab Negative (Negative) Lyme Disease IgM Ab Negative (Negative) 11/23/18 11/24/18 11/24/18 Range/Units 21:56 06:35 06:35 WBC 7.91 (4.8-10.8) K/uL RBC 4.20 L (4.7-6.1) M/uL Hgb 12.5 L (14.0-18.0) g/dL Hct 37.2 L (42-52) % MCV 88.6 (80-100) fL MCH 29.8 (25-34) pg MCHC 33.6 (32-36) g/dL RDW Std Deviation 51.3 H (36.4-46.3) fL RDW Coeff of Luis 15.8 H (11.5-14.5) % Plt Count 284 (130-400) K/uL MPV 8.6 (7.4-10.4) fL Immature Gran % (Auto) 0.3 % Neut % (Auto) 69.4 % Lymph % (Auto) 18.0 % [place] % (Auto) 10.5 % Eos % (Auto) 0.9 % Baso % (Auto) 0.9 % Immature Gran # (Auto) 0.02 (0.00-0.02) K/uL Neut # (Auto) 5.50 (1.4-6.5) K/uL Lymph # (Auto) 1.42 (1.2-3.4) K/uL [place] # (Auto) 0.83 H (0.11-0.59) K/uL Eos # (Auto) 0.07 (0-0.5) K/uL Baso # (Auto) 0.07 (0-0.2) K/uL ESR (0-14) mm/hr PT (9.0-12.0) Seconds INR (0.9-1.1) Sodium 137 (136-145) mmol/L Potassium 3.8 (3.5-5.1) mmol/L Chloride 101 (98-107) mmol/L Carbon Dioxide 23 (21-32) mmol/L Anion Gap 13.0 H (3-11) BUN 7 (7-18) mg/dl Creatinine 0.55 L (0.6-1.4) mg/dl Est Cr Clr Drug Dosing 128.1 ml/min Est GFR ( Amer) 136.9 Est GFR (Non-Af Amer) 118.1 BUN/Creatinine Ratio 12.0 (10-20) Glucose 65 L (70-99) mg/dl Calcium 8.7 (8.5-10.1) mg/dl Total Bilirubin 0.5 (0.2-1) mg/dl AST 44 H (15-37) U/L ALT 20 (12-78) U/L Alkaline Phosphatase 139 H (45-117) U/L Total Creatine Kinase 143 (39-308) U/L C-Reactive Protein (0-0.29) mg/dl Total Protein 7.4 (6.4-8.2) gm/dl Albumin 3.3 L (3.4-5.0) gm/dl Globulin 4.1 H (2.5-4.0) gm/dl Albumin/Globulin Ratio 0.8 L (0.9-2) Urine Color Urine Appearance (Clear) Urine pH (4.5-7.5) Ur Specific [place] (1.000-1.030) Urine Protein (Negative) Urine Glucose (UA) (Negative) Urine Ketones (Negative) Urine Blood (Negative) Urine Nitrite (Negative) Urine Bilirubin (Negative) Urine Urobilinogen (Negative) Ur Leukocyte Esterase (Negative) Ethyl Alcohol mg/dL (0-3) mg/dl Lyme Disease IgG Ab (Negative) Lyme Disease IgM Ab (Negative) 11/24/18 Range/Units 06:35 WBC (4.8-10.8) K/uL RBC (4.7-6.1) M/uL Hgb (14.0-18.0) g/dL Hct (42-52) % MCV (80-100) fL MCH (25-34) pg MCHC (32-36) g/dL RDW Std Deviation (36.4-46.3) fL RDW Coeff of Luis (11.5-14.5) % Plt Count (130-400) K/uL MPV (7.4-10.4) fL Immature Gran % (Auto) % Neut % (Auto) % Lymph % (Auto) % [place] % (Auto) % Eos % (Auto) % Baso % (Auto) % Immature Gran # (Auto) (0.00-0.02) K/uL Neut # (Auto) (1.4-6.5) K/uL Lymph # (Auto) (1.2-3.4) K/uL [place] # (Auto) (0.11-0.59) K/uL Eos # (Auto) (0-0.5) K/uL Baso # (Auto) (0-0.2) K/uL ESR (0-14) mm/hr PT 10.1 (9.0-12.0) Seconds INR 1.0 (0.9-1.1) Sodium (136-145) mmol/L Potassium (3.5-5.1) mmol/L Chloride (98-107) mmol/L Carbon Dioxide (21-32) mmol/L Anion Gap (3-11) BUN (7-18) mg/dl Creatinine (0.6-1.4) mg/dl Est Cr Clr Drug Dosing ml/min Est GFR ( Amer) Est GFR (Non-Af Amer) BUN/Creatinine Ratio (10-20) Glucose (70-99) mg/dl Calcium (8.5-10.1) mg/dl Total Bilirubin (0.2-1) mg/dl AST (15-37) U/L ALT (12-78) U/L Alkaline Phosphatase (45-117) U/L Total Creatine Kinase (39-308) U/L C-Reactive Protein (0-0.29) mg/dl Total Protein (6.4-8.2) gm/dl Albumin (3.4-5.0) gm/dl Globulin (2.5-4.0) gm/dl Albumin/Globulin Ratio (0.9-2) Urine Color Urine Appearance (Clear) Urine pH (4.5-7.5) Ur Specific [place] (1.000-1.030) Urine Protein (Negative) Urine Glucose (UA) (Negative) Urine Ketones (Negative) Urine Blood (Negative) Urine Nitrite (Negative) Urine Bilirubin (Negative) Urine Urobilinogen (Negative) Ur Leukocyte Esterase (Negative) Ethyl Alcohol mg/dL (0-3) mg/dl Lyme Disease IgG Ab (Negative) Lyme Disease IgM Ab (Negative) Imaging Data Radiologist's Impression: XR pelvis 1-2V routine CLINICAL HISTORY: Left hip pain COMPARISON: 06/13/2017 DISCUSSION: Postsurgical changes are present on the right. There is heterotopic ossification superior to the right femoral neck. There are no acute fractures. The left hip appears unremarkable for age. IMPRESSION: 1. Postsurgical changes on the right. Otherwise unremarkable bony pelvis for age. Electronically signed by: Alejandro Lucas M.D. 11/23/2018 7:54 PM XR femur LT 2V routine CLINICAL HISTORY: Left anterior hip pain COMPARISON: None. DISCUSSION: No fractures are visualized. The joint space appears well-preserved for age. There are no erosive or destructive changes. IMPRESSION: No significant bony abnormalities. Electronically signed by: Alejandro Lucas M.D. 11/23/2018 7:[address] pelvis wo con CT DOSE: 523.23 mGy.cm CLINICAL HISTORY: Left anterior hip pain TECHNIQUE: Helical images were acquired in transverse plane. Sagittal and coronal reformatted images were reviewed. A dose lowering technique was utilized adhering to the principles of ALARA. COMPARISON STUDY: CT scan of the abdomen pelvis dated 02/15/2017, x-ray studies dated 11/23/2018 FINDINGS: There is a left iliac wing deformity which appears old. There is no SI joint diastases. No hip fractures are visualized. There are postsurgical changes of an internally fixated intertrochanteric right hip fracture. No acute pubic ring fractures are visualized. There is a small left hip joint effusion. Correlation with white count, sedimentation rate, and symptoms of fever should be considered. There is extensive colonic diverticulosis. There is no evidence of acute diverticulitis. IMPRESSION: 1. No acute fractures 2. Old internally fixated right intertrochanteric hip fracture with adjacent heterotopic ossification 3. 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 Small left hip joint effusion Electronically signed by: Alejandro Lucas M.D. 11/23/2018 9:14 PM MDM Narrative Patient was seen and evaluated as above in room D5. Review was performed of nursing notes and vital signs. After obtaining a thorough history and physical examination the above work up was performed. He presents to us today with left anterior hip pain. He has no abdominal pain, back pain, chest pain, shortness of breath, fevers or chills. Vital signs are stable other than hypertension. X-rays were obtained. I offered him ice packs and he declined. These x-rays are negative. I then recommended a CT scan and that he refused to get out of the CT suite until he had pain medication. I was not aware that the patient wanted pain medication although he is saying that he requested them earlier. I then offered him different medications and it was decided at this time to give him 1 tablet of oxycodone immediate release. He was then sent to CT. Results as above. There is a small joint effusion, otherwise findings are expected. I then discussed these findings with the attending physician, and because the patient has what he describes as atraumatic left hip pain, has a small joint effusion, is refusing to bear weight on the leg and has pain with passive range of motion I did find it appropriate to further evaluate his condition with labs. Although it is less likely that this is a septic joint, an ESR CRP, CBC, Lyme and CMP were ordered. Patient refused to bear weight on the hip. He did have pain in the left hip with passive range of motion of the hip. Labs were ordered at the time of shift change, and the case was signed out to Milagros Giraldo PA-C pending results. Please refer to further documentation regarding his care. Case was discussed with the attending physician. In the evaluation and treatment of this patient, the following differential diagnoses were considered: Hip Fracture, Hip Dislocation, Greater Trochanteric Bursitis, Musculoskeletal Pain, Lumbar Radiculopathy. Impression & Plan Acute pain of left hip Discharge Plan Visit Data *Final* Discharge Date/Time: 11/24/18 02:23 Chief Complaint: Hip Pain Stated Complaint: LEFT HIP PAIN ED Provider: Junaid Weir ED Midlevel Provider: Marilu Giraldo Discharge Problem: Acute pain of left hip Patient Disposition: Still a Patient Condition: Good Discharge Instructions Interventions: ED Discharge Assessment Last Done: 11/24/18 02:23
--- NOTE | 2018-11-23 19:56 | XRay Report ---
XR pelvis 1-2V routine CLINICAL HISTORY: Left hip pain COMPARISON: 06/13/2017 DISCUSSION: Postsurgical changes are present on the right. There is heterotopic ossification superior to the right femoral neck. There are no acute fractures. The left hip appears unremarkable for age. IMPRESSION: 1. Postsurgical changes on the right. Otherwise unremarkable bony pelvis for age. Electronically signed by: Alejandro Lucas M.D. 11/23/2018 7:54 PM
--- NOTE | 2018-11-23 19:58 | XRay Report ---
XR femur LT 2V routine CLINICAL HISTORY: Left anterior hip pain COMPARISON: None. DISCUSSION: No fractures are visualized. The joint space appears well-preserved for age. There are no erosive or destructive changes. IMPRESSION: No significant bony abnormalities. Electronically signed by: Alejandro Lucas M.D. 11/23/2018 7:57 PM
[2018-11-23] MEDS ORDERED: OXYCODONE HCL IR 5 MG TAB (IMMEDIATE RELEASE) PO STA (20:42)
--- NOTE | 2018-11-23 21:15 | CT Scan Report ---
CT pelvis wo con CT DOSE: 523.23 mGy.cm CLINICAL HISTORY: Left anterior hip pain TECHNIQUE: Helical images were acquired in transverse plane. Sagittal and coronal reformatted images were reviewed. A dose lowering technique was utilized adhering to the principles of ALARA. COMPARISON STUDY: CT scan of the abdomen pelvis dated 02/15/2017, x-ray studies dated 11/23/2018 FINDINGS: There is a left iliac wing deformity which appears old. There is no SI joint diastases. No hip fractures are visualized. There are postsurgical changes of an internally fixated intertrochanter ic right hip fracture. No acute pubic ring fractures are visualized. There is a small left hip joint effusion. Correlation with white count, sedimentation rate, and symptoms of fever should be considere d. There is extensive colonic diverticulosis. There is no evidence of acute diverticulitis. IMPRESSION: 1. No acute fractures 2. Old internally fixated right intertrochanteric hip fracture with adjacent heterotopic ossification 3. 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 Small left hip joint effusion Electronically signed by: Alejandro Lucas M.D. 11/23/2018 9:14 PM
[2018-11-23 21:58] LABS: Appearance Urine Clear (Clear); Bilirubin Urine Negative (Negative); Blood Urine Negative (Negative); Color Urine Yellow; Glucose Urine UA Negative (Negative); Ketones Urine Trace (Negative); Leukocyte Esterase Urine Negative (Negative); Nitrite Urine Negative (Negative); Protein Urine Negative (Negative); Specific Gravity Urine 1.009 (1.000-1.030); Urobilinogen Urine Negative (Negative)
[2018-11-23 22:09] LABS: Hematocrit (blood only) 35.8 % (42-52); Hemoglobin 12.2 g/dL (14.0-18.0); Mean Corpuscular Hgb Conc 34.1 g/dL (32-36); Mean Platelet Volume 7.9 fL (7.4-10.4); Platelet Count 267 K/uL (130-400); RDW Coefficient of Variation 15.8 % (11.5-14.5); RDW Standard Deviation 51.2 fL (36.4-46.3); Red Blood Count 4.07 M/uL (4.7-6.1); White Blood Count 7.81 K/uL (4.8-10.8)
[2018-11-23 22:28] LABS: Alanine Aminotransferase 15 U/L (12-78); Albumin Level 3.5 gm/dl (3.4-5.0); Aspartate Aminotransferase 30 U/L (15-37); BUN Creatinine Ratio 8.2 (10-20); Blood Urea Nitrogen 5 mg/dl (7-18); C Reactive Protein < 0.29 mg/dl (0-0.29); Calcium 8.6 mg/dl (8.5-10.1); Carbon Dioxide 25 mmol/L (21-32); Chloride 103 mmol/L (98-107); Creatinine Clr Calc Pharmacy 125.8 ml/min; Est GFR (African American) 135.9; Est GFR (Non-African American) 117.3; Glucose 77 mg/dl (70-99); Potassium 4.2 mmol/L (3.5-5.1); Sodium 136 mmol/L (136-145)
[2018-11-23 22:31] LABS: Albumin Globulin Ratio 0.9 (0.9-2); Alkaline Phosphatase 127 U/L (45-117); Bilirubin,Total 0.4 mg/dl (0.2-1); Globulin 3.9 gm/dl (2.5-4.0); Total Protein 7.4 gm/dl (6.4-8.2)
[2018-11-23 22:39] LABS: Basophils # (auto) 0.07 K/uL (0-0.2); Basophils % (auto) 0.9 %; Eosinophils # (auto) 0.08 K/uL (0-0.5); Immature Granulocytes # (auto) 0.02 K/uL (0.00-0.02); Immature Granulocytes % (auto) 0.3 %; Lymphocytes # (auto) 1.59 K/uL (1.2-3.4); Lymphocytes % (auto) 20.4 %; Monocytes # (auto) 0.59 K/uL (0.11-0.59); Monocytes % (auto) 7.6 %; Neutrophils # (auto) 5.46 K/uL (1.4-6.5); Neutrophils % (auto) 69.8 %
[2018-11-23 23:04] LABS: Lyme Ab IgG w/WB Rflx Negative (Negative); Lyme Ab IgM w/WB Rflx Negative (Negative)
[2018-11-24] MEDS ORDERED: KETOROLAC TROMETHAMINE 15 MG/ML VIAL IV STA (00:01)
--- NOTE | 2018-11-24 01:02 | Emergency Department Note ---
ED Visit Note This patient was signed out to me pending labs and reevaluation in stable condition. This is a 53-year-old alcoholic that presents to the ER complaining of left hip pain for the past few days. Atraumatic. The neighbor brought him in. CTs and labs were reviewed. Patient was still moderate amount of pain and unable to walk. Medicine was consulted for admission. Patient will be evaluated for possible admission for intractable pain. Patient was given OxyIR by the initial provider and I gave him Toradol. Patient has no signs of a septi c joint. Patient has full range of motion of the joint. His pain is when he is weightbearing. Patient was unable to ambulate with a walker. He is requesting admission. Diagnosis: #1 intractable left hip pain. #2 alcoholism .
--- NOTE | 2018-11-24 02:13 | History & Physical Report ---
Date of Service November 24, 2018 Assessment & Plan (1) Acute pain of left hip: 53 yo male h/o Etoh presents with intractable left hip pain, inability to bear weight, no inciting injury Intractable hip pain - Tylenol and toradol for pain - Avoiding narcotics 2/2 h/o Etoh abuse - CT showed effusion of the joint, afebrile, normal weight count, elevate ESR - No signs of avascular necrosis or fracture - Would consider consult with orthopedics H/o Etoh abuse, current alcohol level of 258 - Questionable alcohol history - States that his last drink was 5 days ago, drinks 10-12 beers per setting - Observe for withdraw, CIWA score Poor medical follow up - Describes a history of HTN, other medical history unclear - Case management discharge planning to establish with PCP, CVIM DVT ppx - lovenox Code status - Full code (2) History of hip surgery: (3) Alcohol use disorder, severe, dependence: History of Present Illness Primary Care Provider: NO PCP 53 yo male with a history of Etoh abuse, HTN and homelessness presents with intractable left hip pain. He states that the pain began 2 days ago. He describes the pain as a constant, dull, 8/10 pain, worse with weightbearing and ambulating. He says that he is unable to walk currently. He does endorse pain in his left knee as well. He denies injury, falls, redness, swelling. He denies fevers. The patient has a H history of a fracture to his right hip s/p ORIF. ROS Const; denies fever, chills, NS CV; Denies CP, palp, worsening LE edema Pulm; Denies SOB, cough, wheezing GI; denies ab pain, n/v/d Allergies Allergy/AdvReac Type Severity Reaction Status Date / Time Penicillins AdvReac Mild TIRED Verified 10/28/18 22:51 Home Medications Home Medications Medication Instructions Recorded Confirmed Type No Known Home Medications 10/28/18 11/23/18 History Past Med/Surg History Medical History Chronic hyponatremia History of esophageal stricture History of esophageal dilatation Hx of fracture of hip Hypertension (Chronic) Alcoholism (Chronic) Ambulatory dysfunction (Chronic) Dysphagia (Chronic) "h/o esophageal stricture s/p dilation in past" Frequent falls (Chronic) Surgical History History of esophagogastroduodenoscopy (EGD) History of hip surgery s/p fall and fx Family History Other Cancer Hypertension Social History Preferred Language: Nepali Communication Ability: Effective Visual Impairment: No Limitations Hearing Ability: Hard of Hearing Full Time Staff Interpreter Required: No Beliefs That Will Affect Care: None marital status: Single Current Living Situation: Alone and Homeless Feels Safe at Home: Yes Safety Concerns: Feels Safe At This Time Smoking Status: Former smoker Hx Alcohol Use: Yes Alcohol type: beer Alcohol Intake Frequency Comment: 7-10 beers a day, uncertain which kind of beer Hx Substance Use: No Review of Systems Review of Systems: All systems reviewed & are unremarkable except as noted in HPI & below Physical Exam Constitutional: WD/WN, vitals as above Eyes: PERRL, conjunctivae normal, anicteric sclerae ENMT: external ear and nose normal, oropharynx normal Neck: trachea midline, no thyromegaly Respiratory: normal respiratory effort, lungs clear to auscultation Cardiovascular: RRR, no murmur, no edema Gastrointestinal (Abdomen): normal bowel sounds, soft, nontender, no hepatosplenomegaly Musculoskeletal: no cyanosis or clubbing, extremities motor strength 5/5 Head/Neck/Chest: normocephalic and head atraumatic No tenderness with palpation of the left hip, exquisite tenderness with passive range of motion. The patient refuses active range of motion and weightbearing testing 2/2 intractable pain. Skin: +2 pitting edema BL LE, scaly skin of BL LE Results & Data Vital Signs (Past 12 Hours) Vital Signs Temp Pulse Pulse Resp BP BP Pulse Ox 11/24/18 00:13 75 14 127/77 94 11/23/18 21:47 76 18 138/81 95 11/23/18 19:13 36.6 C 78 18 163/89 H 97 Laboratory Results Laboratory Last Values WBC 7.81 K/uL (4.8-10.8) 11/23/18 21:56 RBC 4.07 M/uL (4.7-6.1) L 11/23/18 21:56 Hgb 12.2 g/dL (14.0-18.0) L 11/23/18 21:56 Hct 35.8 % (42-52) L 11/23/18 21:56 MCV 88.0 fL (80-100) 11/23/18 21:56 MCH 30.0 pg (25-34) 11/23/18 21:56 MCHC 34.1 g/dL (32-36) 11/23/18 21:56 RDW Std Deviation 51.2 fL (36.4-46.3) H 11/23/18 21:56 RDW Coeff of Luis 15.8 % (11.5-14.5) H 11/23/18 21:56 Plt Count 267 K/uL (130-400) 11/23/18 21:56 MPV 7.9 fL (7.4-10.4) 11/23/18 21:56 Immature Gran % (Auto) 0.3 % 11/23/18 21:56 Neut % (Auto) 69.8 % 11/23/18 21:56 Lymph % (Auto) 20.4 % 11/23/18 21:56 [place] % (Auto) 7.6 % 11/23/18 21:56 Eos % (Auto) 1.0 % 11/23/18 21:56 Baso % (Auto) 0.9 % 11/23/18 21:56 Immature Gran # (Auto) 0.02 K/uL (0.00-0.02) 11/23/18 21:56 Neut # (Auto) 5.46 K/uL (1.4-6.5) 11/23/18 21:56 Lymph # (Auto) 1.59 K/uL (1.2-3.4) 11/23/18 21:56 [place] # (Auto) 0.59 K/uL (0.11-0.59) 11/23/18 21:56 Eos # (Auto) 0.08 K/uL (0-0.5) 11/23/18 21:56 Baso # (Auto) 0.07 K/uL (0-0.2) 11/23/18 21:56 ESR 48 mm/hr (0-14) H 11/23/18 21:56 Sodium 136 mmol/L (136-145) 11/23/18 21:56 Potassium 4.2 mmol/L (3.5-5.1) 11/23/18 21:56 Chloride 103 mmol/L (98-107) 11/23/18 21:56 Carbon Dioxide 25 mmol/L (21-32) 11/23/18 21:56 Anion Gap 8.0 (3-11) 11/23/18 21:56 BUN 5 mg/dl (7-18) L 11/23/18 21:56 Creatinine 0.56 mg/dl (0.6-1.4) L 11/23/18 21:56 Est Cr Clr Drug Dosing 125.8 ml/min 11/23/18 21:56 Est GFR ( Amer) 135.9 11/23/18 21:56 Est GFR (Non-Af Amer) 117.3 11/23/18 21:56 BUN/Creatinine Ratio 8.2 (10-20) L 11/23/18 21:56 Glucose 77 mg/dl (70-99) 11/23/18 21:56 Calcium 8.6 mg/dl (8.5-10.1) 11/23/18 21:56 Total Bilirubin 0.4 mg/dl (0.2-1) 11/23/18 21:56 AST 30 U/L (15-37) 11/23/18 21:56 ALT 15 U/L (12-78) 11/23/18 21:56 Alkaline Phosphatase 127 U/L (45-117) H 11/23/18 21:56 Total Creatine Kinase 143 U/L (39-308) 11/23/18 21:56 C-Reactive Protein < 0.29 mg/dl (0-0.29) 11/23/18 21:56 Total Protein 7.4 gm/dl (6.4-8.2) 11/23/18 21:56 Albumin 3.5 gm/dl (3.4-5.0) 11/23/18 21:56 Globulin 3.9 gm/dl (2.5-4.0) 11/23/18 21:56 Albumin/Globulin Ratio 0.9 (0.9-2) 11/23/18 21:56 Urine Color Yellow 11/23/18 21:48 Urine Appearance Clear (Clear) 11/23/18 21:48 Urine pH 6.0 (4.5-7.5) 11/23/18 21:48 Ur Specific [place] 1.009 (1.000-1.030) 11/23/18 21:48 Urine Protein Negative (Negative) 11/23/18 21:48 Urine Glucose (UA) Negative (Negative) 11/23/18 21:48 Urine Ketones Trace (Negative) H 11/23/18 21:48 Urine Blood Negative (Negative) 11/23/18 21:48 Urine Nitrite Negative (Negative) 11/23/18 21:48 Urine Bilirubin Negative (Negative) 11/23/18 21:48 Urine Urobilinogen Negative (Negative) 11/23/18 21:48 Ur Leukocyte Esterase Negative (Negative) 11/23/18 21:48 Ethyl Alcohol mg/dL 258.0 mg/dl (0-3) H 11/23/18 21:56 Lyme Disease IgG Ab Negative (Negative) 11/23/18 21:56 Lyme Disease IgM Ab Negative (Negative) 11/23/18 21:56 Diagnostic Findings [place], [place] [phone] CT Scan Report Patient: ANG MEDEL Date: 11/23/18 MR#: [id number]: [address] Acct ID:[id number]: Date: 1965[facility] Zip: [place] [address] Age: 53Location: ED Sex: M Room/Bed: Att Phy: Diagnosis: LEFT HIP PAIN Lynn Phy: PCP,NO Service Date: 11/23/18 Fam Phy: Interpreting Phy: Alejandro Lucas MD Admit Phy: Ordering Phy: Mike Edwards PA-C cc: ~ CT pelvis wo con CT DOSE: 523.23 mGy.cm CLINICAL HISTORY: Left anterior hip pain TECHNIQUE: Helical images were acquired in transverse plane. Sagittal and coronal reformatted images were reviewed. A dose lowering technique was utilized adhering to the principles of ALARA. COMPARISON STUDY: CT scan of the abdomen pelvis dated 02/15/2017, x-ray studies dated 11/23/2018 FINDINGS: There is a left iliac wing deformity which appears old. There is no SI joint diastases. No hip fractures are visualized. There are postsurgical changes of an internally fixated intertrochanteric right hip fracture. No acute pubic ring fractures are visualized. There is a small left hip joint effusion. Correlation with white count, sedimentation rate, and symptoms of fever should be considered. There is extensive colonic diverticulosis. There is no evidence of acute diver ticulitis. IMPRESSION: 1. No acute fractures 2. Old internally fixated right intertrochanteric hip fracture with adjacent heterotopic ossification 3. 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 Small left hip joint effusion Electronically signed by: Alejandro Lucas M.D. 11/23/2018 9:14 PM Dictated: 11/23/182108 Transcribed: 11/23/182108 Supervising Physician Co-Signing Physician Notes Patient seen and examined, chart reviewed, case discussed with Dr. Cruz and I agree with his assessment and plan as above. Briefly, patient is a 53yo male with history of EtOH abuse, HTN presenting with two days of left hip pain, difficulty walking. Denies fevers/chills/sweats. States his last drink was last week On exam he is afebrile, hemodynamically stable, NAD, smells of EtOH skin: ecchymoses HEENT: NC/AT, PERRL, MMM Heart: +S1/S2, regular, no m/r/g Lungs: CTA anteriorly Abd: +BS, soft, NT/ND Ext: pain with palpation of left hip joint Labs and image reviewed. ESR=48. GwJL=220 Assessment/Plan: Observation to medical floor. Pain control. PT/OT evaluation. CM assessment. Patient states he would like to be placed at [facility] Remainder of plan as above Resident Activity Tracking Resident Involvement: Resident Care Provided Care Provided: Adult Hospital Medicine
[2018-11-24 07:11] LABS: Basophils # (auto) 0.07 K/uL (0-0.2); Basophils % (auto) 0.9 %; Eosinophils # (auto) 0.07 K/uL (0-0.5); Eosinophils % (auto) 0.9 %; Hematocrit (blood only) 37.2 % (42-52); Hemoglobin 12.5 g/dL (14.0-18.0); Immature Granulocytes # (auto) 0.02 K/uL (0.00-0.02); Immature Granulocytes % (auto) 0.3 %; Lymphocytes # (auto) 1.42 K/uL (1.2-3.4); Mean Corpuscular Hgb Conc 33.6 g/dL (32-36); Mean Corpuscular Volume 88.6 fL (80-100); Mean Platelet Volume 8.6 fL (7.4-10.4); Monocytes # (auto) 0.83 K/uL (0.11-0.59); Monocytes % (auto) 10.5 %; Neutrophils % (auto) 69.4 %; Platelet Count 284 K/uL (130-400); RDW Coefficient of Variation 15.8 % (11.5-14.5); RDW Standard Deviation 51.3 fL (36.4-46.3); White Blood Count 7.91 K/uL (4.8-10.8)
[2018-11-24 07:26] LABS: Prothrombin Time 10.1 Seconds (9.0-12.0)
[2018-11-24 07:46] LABS: Albumin Level 3.3 gm/dl (3.4-5.0); Calcium 8.7 mg/dl (8.5-10.1); Creatinine Clr Calc Pharmacy 128.1 ml/min; Est GFR (African American) 136.9; Est GFR (Non-African American) 118.1; Potassium 3.8 mmol/L (3.5-5.1)
[2018-11-24 07:49] LABS: Albumin Globulin Ratio 0.8 (0.9-2); Bilirubin,Total 0.5 mg/dl (0.2-1); Globulin 4.1 gm/dl (2.5-4.0); Total Protein 7.4 gm/dl (6.4-8.2)
[2018-11-24] MEDS: KETOROLAC TROMETHAMINE 15 MG/ML VIAL IV PRN ×4 (08:19→21:09)
[2018-11-24] MEDS: ACETAMINOPHEN 325 MG TAB PO PRN ×4 (09:20→22:42)
[2018-11-24] MEDS: ENOXAPARIN INJ 40 MG/0.4 ML SYR SQ SCH (09:20)
[2018-11-24] MEDS: LORazepam 1 MG/2 ML VIAL IV PRN (13:42)
--- NOTE | 2018-11-24 13:54 | Orthopedic Consultation ---
Date of Consultation November 24, 2018 Assessment & Plan (1) Acute pain of left hip: Acute left hip pain- requesting more pain medication. States the Tylenol he was given isn't helping at all. Continue bedrest, NWB on LLE. Ice to left hip for comfort. Use walker to assist with ambulation as needed. Allowed for ROM left hip as tolerated. Recommend Utrasound guided aspiration and fluid sent for cultures and gram stain STAT to rule out septic left hip joint. If fluid positive for infection then recommend surgical incision and drainage. If negative for infection may need to obtain MRI to eval for AVN or subtle fracture not seen on CT and X-ray. Will keep NPO until cultures obtained. Present on Admission?: Yes Supervising Physician Co-Signing Physician Notes I saw and examined the patient, and agree with the above note. The US showed 5 cc of bloody fluid, gram stain negative. Have ordered urgent MRI to rule out fracture. Patient to remain NPO until MRI completed. Continue to follow cultures. History of Present Illness Reason for Consultation: acute left hip pain Requesting Physician: Dr. Xin Gallagher Attending Physician: Xin Gallagher MD History of Present Illness Patient is a 53 year old male who presented to the ED today. States that he started with left hip pain today when he woke up, although previous notes state it's been ongoing for the last 5 days. He denies previous hip pain and recent injury to the left hip. He states it's very painful and pain medication (Tylenol) is not helping. He has pain with any movement of the hip and at rest. He states he just doesn't want to move it. He states that he normally walks with a walker, but is unable to put any weight on his left hip due to significant pain. He presented to the ED, x-rays were taken and show no evidence of fracture, dislocation or arthritis. Previous right hip hardware noted. CT scan of left hip reveals small left hip joint effusion, no evidence of fracture of hip or pelvis and/or avascular necrosis. We were consulted for evaluation of his left hip joint pain. Allergies Allergy/AdvReac Type Severity Reaction Status Date / Time Penicillins AdvReac Mild TIRED Verified 10/28/18 22:51 Home Medications Home Medications Medication Instructions Recorded Confirmed Type No Known Home Medications 10/28/18 11/23/18 History Patient History Medical History Chronic hyponatremia History of esophageal stricture History of esophageal dilatation Hx of fracture of hip Hypertension (Chronic) Alcoholism (Chronic) Ambulatory dysfunction (Chronic) Dysphagia (Chronic) "h/o esophageal stricture s/p dilation in past" Frequent falls (Chronic) Surgical History History of esophagogastroduodenoscopy (EGD) History of hip surgery s/p fall and fx Family History Other Cancer Hypertension Social History Preferred Language: Congolese Communication Ability: Effective Visual Impairment: No Limitations Hearing Ability: Hard of Hearing Enrollment Nurse Required: No Beliefs That Will Affect Care: None marital status: Single Current Living Situation: Alone and Homeless Feels Safe at Home: Yes Safety Concerns: Feels Safe At This Time Smoking Status: Former smoker Hx Alcohol Use: Yes Alcohol type: beer Alcohol Intake Frequency Comment: 7-10 beers a day, uncertain which kind of beer Hx Substance Use: No Physical Exam Physical Exam: Exam of his left lower extremity: No edema left foot, chronic changes bilateral lower leg with erythema, nontender left ankle, lower leg, and knee. No left knee effusion, nontender left knee with palpation. tolerates gentle passive hip ROM 0-65 degrees and gentle internal and external rotation. Further ROM limited due to pain. Dorsalis pedis pulse 1+, distal sensation seems to be normal. Tolerates gentle passive knee ROM to 75 degrees. Nontender left lateral trochanteric bursa or IT band, no posterior pain of low back appreciate with palpation. Tolerates gentle log rolling of left hip, but points to pain in left groin at times. Pain with palpation of left hip in anterior l eft hip flexors and groin. Skin normal, no ecchymosis, erythema. Results & Data Vital Signs (Past 12 Hours) Vital Signs Temp Pulse Resp BP BP Pulse Ox 11/24/18 12:19 36.7 C 108 H 18 187/84 H 95 11/24/18 07:31 36.9 C 78 20 176/92 H 98 11/24/18 02:44 36.4 C L 81 20 158/93 H 96 11/24/18 02:21 75 14 120/84 98 Laboratory Results 11/24/18 11/24/18 11/24/18 Range/Units 12:59 06:35 06:35 WBC (4.8-10.8) K/uL RBC (4.7-6.1) M/uL Hgb (14.0-18.0) g/dL Hct (42-52) % MCV (80-100) fL MCH (25-34) pg MCHC (32-36) g/dL RDW Std Deviation (36.4-46.3) fL RDW Coeff of Luis (11.5-14.5) % Plt Count (130-400) K/uL MPV (7.4-10.4) fL Immature Gran % (Auto) % Neut % (Auto) % Lymph % (Auto) % Ward % (Auto) % Eos % (Auto) % Baso % (Auto) % Immature Gran # (Auto) (0.00-0.02) K/uL Neut # (Auto) (1.4-6.5) K/uL Lymph # (Auto) (1.2-3.4) K/uL Ward # (Auto) (0.11-0.59) K/uL Eos # (Auto) (0-0.5) K/uL Baso # (Auto) (0-0.2) K/uL ESR (0-14) mm/hr PT 10.1 (9.0-12.0) Seconds INR 1.0 (0.9-1.1) Sodium 137 (136-145) mmol/L Potassium 3.8 (3.5-5.1) mmol/L Chloride 101 (98-107) mmol/L Carbon Dioxide 23 (21-32) mmol/L Anion Gap 13.0 H (3-11) BUN 7 (7-18) mg/dl Creatinine 0.55 L (0.6-1.4) mg/dl Est Cr Clr Drug Dosing 128.1 ml/min Est GFR ( Amer) 136.9 Est GFR (Non-Af Amer) 118.1 BUN/Creatinine Ratio 12.0 (10-20) Glucose 65 L (70-99) mg/dl Calcium 8.7 (8.5-10.1) mg/dl Total Bilirubin 0.5 (0.2-1) mg/dl AST 44 H (15-37) U/L ALT 20 (12-78) U/L Alkaline Phosphatase 139 H (45-117) U/L Total Creatine Kinase (39-308) U/L C-Reactive Protein (0-0.29) mg/dl Total Protein 7.4 (6.4-8.2) gm/dl Albumin 3.3 L (3.4-5.0) gm/dl Globulin 4.1 H (2.5-4.0) gm/dl Albumin/Globulin Ratio 0.8 L (0.9-2) Folate Pending Urine Color Urine Appearance (Clear) Urine pH (4.5-7.5) Ur Specific [place] (1.000-1.030) Urine Protein (Negative) Urine Glucose (UA) (Negative) Urine Ketones (Negative) Urine Blood (Negative) Urine Nitrite (Negative) Urine Bilirubin (Negative) Urine Urobilinogen (Negative) Ur Leukocyte Esterase (Negative) Ethyl Alcohol mg/dL (0-3) mg/dl Lyme Disease IgG Ab (Negative) Lyme Disease IgM Ab (Negative) 11/24/18 11/23/18 11/23/18 Range/Units 06:35 21:56 21:56 WBC 7.91 (4.8-10.8) K/uL RBC 4.20 L (4.7-6.1) M/uL Hgb 12.5 L (14.0-18.0) g/dL Hct 37.2 L (42-52) % MCV 88.6 (80-100) fL MCH 29.8 (25-34) pg MCHC 33.6 (32-36) g/dL RDW Std Deviation 51.3 H (36.4-46.3) fL RDW Coeff of Luis 15.8 H (11.5-14.5) % Plt Count 284 (130-400) K/uL MPV 8.6 (7.4-10.4) fL Immature Gran % (Auto) 0.3 % Neut % (Auto) 69.4 % Lymph % (Auto) 18.0 % Ward % (Auto) 10.5 % Eos % (Auto) 0.9 % Baso % (Auto) 0.9 % Immature Gran # (Auto) 0.02 (0.00-0.02) K/uL Neut # (Auto) 5.50 (1.4-6.5) K/uL Lymph # (Auto) 1.42 (1.2-3.4) K/uL Ward # (Auto) 0.83 H (0.11-0.59) K/uL Eos # (Auto) 0.07 (0-0.5) K/uL Baso # (Auto) 0.07 (0-0.2) K/uL ESR (0-14) mm/hr PT (9.0-12.0) Seconds INR (0.9-1.1) Sodium (136-145) mmol/L Potassium (3.5-5.1) mmol/L Chloride (98-107) mmol/L Carbon Dioxide (21-32) mmol/L Anion Gap (3-11) BUN (7-18) mg/dl Creatinine (0.6-1.4) mg/dl Est Cr Clr Drug Dosing ml/min Est GFR ( Amer) Est GFR (Non-Af Amer) BUN/Creatinine Ratio (10-20) Glucose (70-99) mg/dl Calcium (8.5-10.1) mg/dl Total Bilirubin (0.2-1) mg/dl AST (15-37) U/L ALT (12-78) U/L Alkaline Phosphatase (45-117) U/L Total Creatine Kinase 143 (39-308) U/L C-Reactive Protein (0-0.29) mg/dl Total Protein (6.4-8.2) gm/dl Albumin (3.4-5.0) gm/dl Globulin (2.5-4.0) gm/dl Albumin/Globulin Ratio (0.9-2) Folate Urine Color Urine Appearance (Clear) Urine pH (4.5-7.5) Ur Specific [place] (1.000-1.030) Urine Protein (Negative) Urine Glucose (UA) (Negative) Urine Ketones (Negative) Urine Blood (Negative) Urine Nitrite (Negative) Urine Bilirubin (Negative) Urine Urobilinogen (Negative) Ur Leukocyte Esterase (Negative) Ethyl Alcohol mg/dL 258.0 H (0-3) mg/dl Lyme Disease IgG Ab (Negative) Lyme Disease IgM Ab (Negative) 11/23/18 11/23/18 11/23/18 Range/Units 21:56 21:56 21:56 WBC (4.8-10.8) K/uL RBC (4.7-6.1) M/uL Hgb (14.0-18.0) g/dL Hct (42-52) % MCV (80-100) fL MCH (25-34) pg MCHC (32-36) g/dL RDW Std Deviation (36.4-46.3) fL RDW Coeff of Luis (11.5-14.5) % Plt Count (130-400) K/uL MPV (7.4-10.4) fL Immature Gran % (Auto) % Neut % (Auto) % Lymph % (Auto) % Ward % (Auto) % Eos % (Auto) % Baso % (Auto) % Immature Gran # (Auto) (0.00-0.02) K/uL Neut # (Auto) (1.4-6.5) K/uL Lymph # (Auto) (1.2-3.4) K/uL Ward # (Auto) (0.11-0.59) K/uL Eos # (Auto) (0-0.5) K/uL Baso # (Auto) (0-0.2) K/uL ESR 48 H (0-14) mm/hr PT (9.0-12.0) Seconds INR (0.9-1.1) Sodium 136 (136-145) mmol/L Potassium 4.2 (3.5-5.1) mmol/L Chloride 103 (98-107) mmol/L Carbon Dioxide 25 (21-32) mmol/L Anion Gap 8.0 (3-11) BUN 5 L (7-18) mg/dl Creatinine 0.56 L (0.6-1.4) mg/dl Est Cr Clr Drug Dosing 125.8 ml/min Est GFR ( Amer) 135.9 Est GFR (Non-Af Amer) 117.3 BUN/Creatinine Ratio 8.2 L (10-20) Glucose 77 (70-99) mg/dl Calcium 8.6 (8.5-10.1) mg/dl Total Bilirubin 0.4 (0.2-1) mg/dl AST 30 (15-37) U/L ALT 15 (12-78) U/L Alkaline Phosphatase 127 H (45-117) U/L Total Creatine Kinase (39-308) U/L C-Reactive Protein < 0.29 (0-0.29) mg/dl Total Protein 7.4 (6.4-8.2) gm/dl Albumin 3.5 (3.4-5.0) gm/dl Globulin 3.9 (2.5-4.0) gm/dl Albumin/Globulin Ratio 0.9 (0.9-2) Folate Urine Color Urine Appearance (Clear) Urine pH (4.5-7.5) Ur Specific [place] (1.000-1.030) Urine Protein (Negative) Urine Glucose (UA) (Negative) Urine Ketones (Negative) Urine Blood (Negative) Urine Nitrite (Negative) Urine Bilirubin (Negative) Urine Urobilinogen (Negative) Ur Leukocyte Esterase (Negative) Ethyl Alcohol mg/dL (0-3) mg/dl Lyme Disease IgG Ab Negative (Negative) Lyme Disease IgM Ab Negative (Negative) 11/23/18 11/23/18 Range/Units 21:56 21:48 WBC 7.81 (4.8-10.8) K/uL RBC 4.07 L (4.7-6.1) M/uL Hgb 12.2 L (14.0-18.0) g/dL Hct 35.8 L (42-52) % MCV 88.0 (80-100) fL MCH 30.0 (25-34) pg MCHC 34.1 (32-36) g/dL RDW Std Deviation 51.2 H (36.4-46.3) fL RDW Coeff of Luis 15.8 H (11.5-14.5) % Plt Count 267 (130-400) K/uL MPV 7.9 (7.4-10.4) fL Immature Gran % (Auto) 0.3 % Neut % (Auto) 69.8 % Lymph % (Auto) 20.4 % Ward % (Auto) 7.6 % Eos % (Auto) 1.0 % Baso % (Auto) 0.9 % Immature Gran # (Auto) 0.02 (0.00-0.02) K/uL Neut # (Auto) 5.46 (1.4-6.5) K/uL Lymph # (Auto) 1.59 (1.2-3.4) K/uL Ward # (Auto) 0.59 (0.11-0.59) K/uL Eos # (Auto) 0.08 (0-0.5) K/uL Baso # (Auto) 0.07 (0-0.2) K/uL ESR (0-14) mm/hr PT (9.0-12.0) Seconds INR (0.9-1.1) Sodium (136-145) mmol/L Potassium (3.5-5.1) mmol/L Chloride (98-107) mmol/L Carbon Dioxide (21-32) mmol/L Anion Gap (3-11) BUN (7-18) mg/dl Creatinine (0.6-1.4) mg/dl Est Cr Clr Drug Dosing ml/min Est GFR ( Amer) Est GFR (Non-Af Amer) BUN/Creatinine Ratio (10-20) Glucose (70-99) mg/dl Calcium (8.5-10.1) mg/dl Total Bilirubin (0.2-1) mg/dl AST (15-37) U/L ALT (12-78) U/L Alkaline Phosphatase (45-117) U/L Total Creatine Kinase (39-308) U/L C-Reactive Protein (0-0.29) mg/dl Total Protein (6.4-8.2) gm/dl Albumin (3.4-5.0) gm/dl Globulin (2.5-4.0) gm/dl Albumin/Globulin Ratio (0.9-2) Folate Urine Color Yellow Urine Appearance Clear (Clear) Urine pH 6.0 (4.5-7.5) Ur Specific [place] 1.009 (1.000-1.030) Urine Protein Negative (Negative) Urine Glucose (UA) Negative (Negative) Urine Ketones Trace H (Negative) Urine Blood Negative (Negative) Urine Nitrite Negative (Negative) Urine Bilirubin Negative (Negative) Urine Urobilinogen Negative (Negative) Ur Leukocyte Esterase Negative (Negative) Ethyl Alcohol mg/dL (0-3) mg/dl Lyme Disease IgG Ab (Negative) Lyme Disease IgM Ab (Negative) Diagnostic Findings XR femur LT 2V routine CLINICAL HISTORY: Left anterior hip pain COMPARISON: None. DISCUSSION: No fractures are visualized. The joint space appears well-preserved for age. There are no erosive or destructive changes. IMPRESSION: No significant bony abnormalities. XR pelvis 1-2V routine CLINICAL HISTORY: Left hip pain COMPARISON: 06/13/2017 DISCUSSION: Postsurgical changes are present on the right. There is heterotopic ossification superior to the right femoral neck. There are no acute fractures. The left hip appears unremarkable for age. IMPRESSION: 1. Postsurgical changes on the right. Otherwise unremarkable bony pelvis for age. CT pelvis wo con CT DOSE: 523.23 mGy.cm CLINICAL HISTORY: Left anterior hip pain TECHNIQUE: Helical images were acquired in transverse plane. Sagittal and coronal reformatted images were reviewed. A dose lowering technique was utilized adhering to the principles of ALARA. COMPARISON STUDY: CT scan of the abdomen pelvis dated 02/15/2017, x-ray studies dated 11/23/2018 FINDINGS: There is a left iliac wing deformity which appears old. There is no SI joint diastases. No hip fractures are visualized. There are postsurgical changes of an internally fixated intertrochanteric right hip fracture. No acute pubic ring fractures are visualized. There is a small left hip joint effusion. Correlation with white count, sedimentation rate, and symptoms of fever should be considered. There is extensive colonic diverticulosis. There is no evidence of acute diverticulitis. IMPRESSION: 1. No acute fractures 2. Old internally fixated right intertrochanteric hip fracture with adjacent heterotopic ossification 3. 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 Small left hip joint effusion
--- NOTE | 2018-11-24 15:38 | Family Medicine Progress Note ---
Date of Service November 24, 2018 Assessment & Plan (1) Acute pain of left hip: 53 yo male h/o Etoh presents with intractable left hip pain, inability to bear weight, no inciting injury Intractable hip pain - Tylenol and toradol for pain. Avoiding narcotics 2/2 h/o Etoh abuse - 11/24 Xray Femur/Pelvis- Normal, no signs of avascular necrosis or fx. Pelvis CT showed small left hip joint effusion - Pt has remained afebrile. Normal weight count, elevated ESR - Will cont bedrest, ice/heat to left hip for comfort, walker for ambulation - Ortho: U/S guided aspiration, fluid to be sent for cultures and gram stain STAT to r/o septic left hip joint. If fluid positive for infxn, then surgical I &D. If negative for infxn may need to obtain MRI for further information. H/o Etoh abuse - alcohol level of 258 on admit - Questionable alcohol history, but states that his last drink was day prior to admission, drinks 10-12 beers per setting - Observe for withdraw, CIWA score. On AWSS protocol ?HTN -pt states this issue but unsure. Also unsure if on any medications. Will cont to monitor BP and tx as needed FEN/GI DVT Prophylaxis: Lovenox Dispo: Med Surg. Awaiting US and cx to determine course (I&D vs MRI). CM d/c planning to establish with PCP, CVIM Full code Supervising Physician Co-Signing Physician Notes Resident Physician Supervision Note: I independently interviewed and examined the patient and verified the das history and physical, reviewed labs and image studies, discussed the case with the resident Dr. Kessler and agree with the findings and care plan. Subjective 53 y/o M found in bed this AM in NAD. No reported overnight events. Reports L hip pain, 01/23. Difficulty with ROM and ambulation. States last alcohol intake was probably day before admission instead of 5 days prior as previousy reported. Slight tremors this AM but no other s/s for withdrawal. No other acute concerns or complaints. Review of Systems Review of Systems: All systems reviewed & are unremarkable except as noted in HPI & below Physical Exam Constitutional: WD/WN, vitals as above Eyes: PERRL, conjunctivae normal, anicteric sclerae ENMT: external ear and nose normal, oropharynx normal Respiratory: normal respiratory effort, lungs clear to auscultation Cardiovascular: RRR, no murmur, no edema Gastrointestinal (Abdomen): normal bowel sounds, soft, nontender, no hepatosplenomegaly Musculoskeletal: Nontender left lateral trochanteric bursa, pain with passive ROM of left hip and knee. No cyanosis or clubbing or erythema of overlying skin L hip. Extremities motor strength 5/5 Pt weightbearing testing Skin: no rashes, warm and dry Neurologic: Motor/Sensory: + tremor Psychiatric: A+Ox3, euthymic affect Results & Data Vital Signs (Past 12 Hours) Vital Signs Temp Pulse Resp BP BP Pulse Ox 11/24/18 15:02 36.7 C 86 20 160/98 H 161/102 H 97 11/24/18 12:19 36.7 C 108 H 18 187/84 H 95 11/24/18 07:31 36.9 C 78 20 176/92 H 98 Laboratory Results Laboratory Results - last 24 hr 11/23/18 11/23/18 11/23/18 21:48 21:56 21:56 WBC 7.81 RBC 4.07 L Hgb 12.2 L Hct 35.8 L MCV 88.0 MCH 30.0 MCHC 34.1 RDW Std Deviation 51.2 H RDW Coeff of Luis 15.8 H Plt Count 267 MPV 7.9 Immature Gran % (Auto) 0.3 Neut % (Auto) 69.8 Lymph % (Auto) 20.4 [place] % (Auto) 7.6 Eos % (Auto) 1.0 Baso % (Auto) 0.9 Immature Gran # (Auto) 0.02 Neut # (Auto) 5.46 Lymph # (Auto) 1.59 [place] # (Auto) 0.59 Eos # (Auto) 0.08 Baso # (Auto) 0.07 ESR 48 H PT INR Sodium Potassium Chloride Carbon Dioxide Anion Gap BUN Creatinine Est Cr Clr Drug Dosing Est GFR ( Amer) Est GFR (Non-Af Amer) BUN/Creatinine Ratio Glucose Calcium Total Bilirubin AST ALT Alkaline Phosphatase Total Creatine Kinase C-Reactive Protein Total Protein Albumin Globulin Albumin/Globulin Ratio Folate Urine Color Yellow Urine Appearance Clear Urine pH 6.0 Ur Specific Cooper 1.009 Urine Protein Negative Urine Glucose (UA) Negative Urine Ketones Trace H Urine Blood Negative Urine Nitrite Negative Urine Bilirubin Negative Urine Urobilinogen Negative Ur Leukocyte Esterase Negative Ethyl Alcohol mg/dL Lyme Disease IgG Ab Lyme Disease IgM Ab 11/23/18 11/23/18 11/23/18 21:56 21:56 21:56 WBC RBC Hgb Hct MCV MCH MCHC RDW Std Deviation RDW Coeff of Luis Plt Count MPV Immature Gran % (Auto) Neut % (Auto) Lymph % (Auto) [place] % (Auto) Eos % (Auto) Baso % (Auto) Immature Gran # (Auto) Neut # (Auto) Lymph # (Auto) [place] # (Auto) Eos # (Auto) Baso # (Auto) ESR PT INR Sodium 136 Potassium 4.2 Chloride 103 Carbon Dioxide 25 Anion Gap 8.0 BUN 5 L Creatinine 0.56 L Est Cr Clr Drug Dosing 125.8 Est GFR ( Amer) 135.9 Est GFR (Non-Af Amer) 117.3 BUN/Creatinine Ratio 8.2 L Glucose 77 Calcium 8.6 Total Bilirubin 0.4 AST 30 ALT 15 Alkaline Phosphatase 127 H Total Creatine Kinase C-Reactive Protein < 0.29 Total Protein 7.4 Albumin 3.5 Globulin 3.9 Albumin/Globulin Ratio 0.9 Folate Urine Color Urine Appearance Urine pH Ur Specific [place] Urine Protein Urine Glucose (UA) Urine Ketones Urine Blood Urine Nitrite Urine Bilirubin Urine Urobilinogen Ur Leukocyte Esterase Ethyl Alcohol mg/dL 258.0 H Lyme Disease IgG Ab Negative Lyme Disease IgM Ab Negative 11/23/18 11/24/18 11/24/18 21:56 06:35 06:35 WBC 7.91 RBC 4.20 L Hgb 12.5 L Hct 37.2 L MCV 88.6 MCH 29.8 MCHC 33.6 RDW Std Deviation 51.3 H RDW Coeff of Luis 15.8 H Plt Count 284 MPV 8.6 Immature Gran % (Auto) 0.3 Neut % (Auto) 69.4 Lymph % (Auto) 18.0 [place] % (Auto) 10.5 Eos % (Auto) 0.9 Baso % (Auto) 0.9 Immature Gran # (Auto) 0.02 Neut # (Auto) 5.50 Lymph # (Auto) 1.42 [place] # (Auto) 0.83 H Eos # (Auto) 0.07 Baso # (Auto) 0.07 ESR PT INR Sodium 137 Potassium 3.8 Chloride 101 Carbon Dioxide 23 Anion Gap 13.0 H BUN 7 Creatinine 0.55 L Est Cr Clr Drug Dosing 128.1 Est GFR ( Amer) 136.9 Est GFR (Non-Af Amer) 118.1 BUN/Creatinine Ratio 12.0 Glucose 65 L Calcium 8.7 Total Bilirubin 0.5 AST 44 H ALT 20 Alkaline Phosphatase 139 H Total Creatine Kinase 143 C-Reactive Protein Total Protein 7.4 Albumin 3.3 L Globulin 4.1 H Albumin/Globulin Ratio 0.8 L Folate Urine Color Urine Appearance Urine pH Ur Specific Cooper Urine Protein Urine Glucose (UA) Urine Ketones Urine Blood Urine Nitrite Urine Bilirubin Urine Urobilinogen Ur Leukocyte Esterase Ethyl Alcohol mg/dL Lyme Disease IgG Ab Lyme Disease IgM Ab 11/24/18 11/24/18 06:35 12:59 WBC RBC Hgb Hct MCV MCH MCHC RDW Std Deviation RDW Coeff of Luis Plt Count MPV Immature Gran % (Auto) Neut % (Auto) Lymph % (Auto) [place] % (Auto) Eos % (Auto) Baso % (Auto) Immature Gran # (Auto) Neut # (Auto) Lymph # (Auto) [place] # (Auto) Eos # (Auto) Baso # (Auto) ESR PT 10.1 INR 1.0 Sodium Potassium Chloride Carbon Dioxide Anion Gap BUN Creatinine Est Cr Clr Drug Dosing Est GFR ( Amer) Est GFR (Non-Af Amer) BUN/Creatinine Ratio Glucose Calcium Total Bilirubin AST ALT Alkaline Phosphatase Total Creatine Kinase C-Reactive Protein Total Protein Albumin Globulin Albumin/Globulin Ratio Folate 16.40 Urine Color Urine Appearance Urine pH Ur Specific Cooper Urine Protein Urine Glucose (UA) Urine Ketones Urine Blood Urine Nitrite Urine Bilirubin Urine Urobilinogen Ur Leukocyte Esterase Ethyl Alcohol mg/dL Lyme Disease IgG Ab Lyme Disease IgM Ab Medications Administered Current Inpatient Medications Acetaminophen (Tylenol) 650 mg PO Q4H PRN PRN Reason: pain/fever Stop: 12/24/18 02:42 Last Admin: 11/24/18 13:18 Dose: 650 mg Documented by: Enoxaparin Sodium (Lovenox) 40 mg SQ QAM [facility] Stop: 12/24/18 08:59 Last Admin: 11/24/18 09:20 Dose: 40 mg Documented by: Lorazepam (Ativan) 1 mg in 2 mls @ 2 mls/min IV ONE PRN; Protocol PRN Reason: EtoH Withdrawal AWSS 6-10 Stop: 12/24/18 12:52 Last Admin: 11/24/18 13:42 Dose: 2 mls/min Documented by: Ketorolac Tromethamine (Toradol) 15 mg IV Q6H PRN PRN Reason: Pain Stop: 11/29/18 02:42 Last Admin: 11/24/18 08:19 Dose: 15 mg Documented by: Resident Activity Tracking Resident Involvement: Resident Care Provided Care Provided: Adult Hospital Medicine
--- NOTE | 2018-11-24 18:34 | Fluoroscopy Report ---
FL inj majr joint sh,hip,kn LT CLINICAL HISTORY: LEFT HIP ASPIRATIONinfection COMPARISON STUDY: None FLUOROSCOPY TIME: 6 seconds NUMBER OF FLUOROSCOPIC IMAGES: 1 FINDINGS: Following description of procedure and informed consent, a 25-gauge needle was inserted to the left hip joint space. 5 cc of bloody fluid was removed. The specimen was sent to pathology for fu rther evaluation. The AP image of the left hip suggests a possible very small cortical defect of the femoral neck. This potentially is due to overlapping shadows with the patient's prior CT of 11/23/2018 showing no evidence for fracture. IMPRESSION: 1. Successful removal of 5 cc of bloody fluid from the left hip joint space. 2. No complications at time of the procedure. Specimen was sent to pathology for evaluation. 3. Possible cortical defect left femoral neck versus overlap artifact. This again was not seen on the CT study of 11/23/2018 raising the possibility of artifact. The above report was generated using voice recognition software. It may contain grammatical, syntax or spelling errors. Electronically signed by: Keven Vann M.D. 11/24/2018 6:33 PM
[2018-11-25] MEDS: KETOROLAC TROMETHAMINE 15 MG/ML VIAL IV PRN (04:07)
--- NOTE | 2018-11-25 06:30 | Magnetic Resonance Report ---
MR hip LT wo con CLINICAL HISTORY: Severe left hip pain bloody joint effusion COMPARISON STUDY: CT scan dated 11/23/2018 FINDINGS: Imaging was performed in the sagittal coronal and axial planes. There is a nondisplaced left femoral neck fracture. There is associated marrow edema. There is a left hip joint effusion. There is minimal left acetabular edema. There is edema present within the adjacent left hip musculature. Postsurgical changes involve the right hip. IMPRESSION: 1. Nondisplaced left femoral neck fracture. 2. Left hip joint effusion. Electronically signed by: Alejandro Lucas M.D. 11/25/2018 6:29 AM
[2018-11-25 06:34] LABS: Basophils # (auto) 0.02 K/uL (0-0.2); Basophils % (auto) 0.2 %; Eosinophils # (auto) 0.04 K/uL (0-0.5); Eosinophils % (auto) 0.3 %; Hematocrit (blood only) 36.8 % (42-52); Hemoglobin 13.4 g/dL (14.0-18.0); Immature Granulocytes # (auto) 0.04 K/uL (0.00-0.02); Immature Granulocytes % (auto) 0.3 %; Lymphocytes % (auto) 9.2 %; Mean Corpuscular Hgb Conc 36.4 g/dL (32-36); Mean Platelet Volume 8.9 fL (7.4-10.4); Monocytes # (auto) 0.92 K/uL (0.11-0.59); Monocytes % (auto) 7.7 %; Neutrophils # (auto) 9.86 K/uL (1.4-6.5); Neutrophils % (auto) 82.3 %; Platelet Count 231 K/uL (130-400); RDW Coefficient of Variation 15.6 % (11.5-14.5); RDW Standard Deviation 48.8 fL (36.4-46.3); Red Blood Count 4.33 M/uL (4.7-6.1); White Blood Count 11.98 K/uL (4.8-10.8)
[2018-11-25 07:16] LABS: Albumin Level 3.3 gm/dl (3.4-5.0); BUN Creatinine Ratio 15.5 (10-20); Calcium 8.8 mg/dl (8.5-10.1); Creatinine Clr Calc Pharmacy 125.8 ml/min; Est GFR (African American) 135.9; Est GFR (Non-African American) 117.3; Potassium 3.2 mmol/L (3.5-5.1)
[2018-11-25 07:18] LABS: Albumin Globulin Ratio 0.8 (0.9-2); Bilirubin,Total 1.2 mg/dl (0.2-1); Globulin 4.3 gm/dl (2.5-4.0); Total Protein 7.6 gm/dl (6.4-8.2)
[2018-11-25] MEDS ORDERED: POTASSIUM CHLORIDE 20 MEQ TABCR PO STA (07:24)
[2018-11-25] MEDS: ACETAMINOPHEN 325 MG TAB PO PRN (07:55)
[2018-11-25] MEDS: ENOXAPARIN INJ 40 MG/0.4 ML SYR SQ SCH (09:39)
--- NOTE | 2018-11-25 09:49 | Orthopedic Progress Note ---
Date of Service November 25, 2018 Assessment & Plan (1) Traumatic closed nondisplaced fracture of neck of left femur: Recommend ORIF L femoral neck fracture today. Reviewed risks/benefits, alternatives and expected outcomes. All questions answered. Patient elects to proceed. Informed consent signed. Will proceed to OR today. Readmit to floor after surgery. (2) Alcohol abuse: (3) Hyponatremia with decreased serum osmolality: (4) Alcoholism: Malnourished, risk for wound healing problems. Plan to supplement with protein shakes after surgery. NPO for now for surgery. Subjective US guided aspiration yesterday showed bloody fluid, gram stain negative. MRI done last night showed nondisplaced femoral neck fracture. Patient reports he continues to have significant groin pain. Physical Exam Physical Exam: Exam unchanged from yesterday. Specifically, he is not showed any evidence of withdrawl. Results & Data Vital Signs (Past 12 Hours) Vital Signs Temp Pulse Resp BP Pulse Ox 11/25/18 07:15 36.3 C L 97 H 18 154/97 H 95 11/24/18 23:18 37.1 C 106 H 20 126/75 94 Laboratory Results Albumin 3.3 (low) and sodium low (128)
[2018-11-25] MEDS ORDERED: THIAMINE HCL 100 MG in SYRINGE 9 ML IV STA (09:54)
[2018-11-25] MEDS: SODIUM CHLORIDE 0.9% 1000ML 1,000 ML IV SCH ×2 (10:12→19:26)
[2018-11-25] MEDS: MULTIVITAMIN TAB PO SCH (11:11)
--- NOTE | 2018-11-25 12:18 | Family Medicine Progress Note ---
Date of Service November 25, 2018 Assessment & Plan (1) Acute pain of left hip: 53 yo male h/o Etoh presents with intractable left hip pain, inability to bear weight, no inciting injury. Further CT imaging has shown small effusion and MRI showed L femoral neck fx. Intractable hip pain secondary to L femoral neck fx - 11/24 Xray Femur/Pelvis- Normal, no signs of avascular necrosis or fx. Pelvis CT showed small left hip joint effusion -11/24 U/S guided aspiration- removal of 5 cc of bloody fluid from the left hip joint space. Fluid sent for cultures and gram stain done to r/o septic left hip joint, showed: many WBCs, no organisms. Follow up MRI --> Nondisplaced L femoral neck fracture -Ortho: ORIF L femoral neck fracture today - Tylenol and toradol for pain. Avoiding narcotics 2/2 h/o Etoh abuse -Order PT/OT moving forward H/o Etoh abuse - alcohol level of 258 on admit - Questionable alcohol history, but states that his last drink was day prior to admission, drinks 10-12 beers per setting - Observe for withdraw, CIWA score. On AWSS protocol -IV Thiamine, MV added today -added neurontin taper post op Hyponatremia -Na 128 from 137 yesterday -Urine osmolality 867, serum osmolality 271. Urine Na 119 -Will cont to trend Hypokalemia -K 3.2 from 3.8 yesterday -KCl PO tab 40 meq today. Will cont to monitor and replete ?HTN -pt states this issue but unsure. Also unsure if on any medications. Will cont to monitor BP and tx as needed -Has been at a level that would warrant starting BP med as outpt. Will need to set up with PCP for oupt f/u FEN/GI: Regular DVT Prophylaxis: Lovenox Dispo: Med Surg. CM d/c planning to establish with PCP Full code Supervising Physician Co-Signing Physician Notes Resident Physician Supervision Note: I independently interviewed and examined the patient and verified the das history and physical, reviewed labs and image studies, discussed the case with the resident Dr. Kessler and agree with the findings and care plan. Subjective 53 y/o M found in bed this AM in NAD. No reported overnight events. Given ativan x1 yesterday per AWSS protocol. Again 1x today. Seems to get s/s around noon time. Pt told of MRI findings of femoral neck fx and plan for OR, agreeable. Pain still there, 02/23, does not seem improved with tramadol but Tylenol helps a little. No other acute concerns or complaints. Review of Systems Review of Systems: All systems reviewed & are unremarkable except as noted in HPI & below Physical Exam Constitutional: WD/WN, vitals as above Eyes: PERRL, conjunctivae normal, anicteric sclerae ENMT: external ear and nose normal, oropharynx normal Respiratory: normal respiratory effort, lungs clear to auscultation Cardiovascular: RRR, no murmur, no edema Gastrointestinal (Abdomen): normal bowel sounds, soft, nontender, no hepatosplenomegaly Skin: no rashes, warm and dry Neurologic: Motor/Sensory: + tremor Psychiatric: A+Ox3, euthymic affect Results & Data Vital Signs (Past 12 Hours) Vital Signs Temp Pulse Resp BP Pulse Ox 11/25/18 07:15 36.3 C L 97 H 18 154/97 H 95 Laboratory Results Laboratory Results - last 24 hr 11/24/18 11/25/18 11/25/18 12:59 06:07 06:07 WBC 11.98 H RBC 4.33 L Hgb 13.4 L Hct 36.8 L MCV 85.0 MCH 30.9 MCHC 36.4 H RDW Std Deviation 48.8 H RDW Coeff of Luis 15.6 H Plt Count 231 MPV 8.9 Immature Gran % (Auto) 0.3 Neut % (Auto) 82.3 Lymph % (Auto) 9.2 [place] % (Auto) 7.7 Eos % (Auto) 0.3 Baso % (Auto) 0.2 Immature Gran # (Auto) 0.04 H Neut # (Auto) 9.86 H Lymph # (Auto) 1.10 L [place] # (Auto) 0.92 H Eos # (Auto) 0.04 Baso # (Auto) 0.02 Sodium 128 L D Potassium 3.2 L D Chloride 93 L Carbon Dioxide 22 Anion Gap 13.0 H BUN 9 Creatinine 0.56 L Est Cr Clr Drug Dosing 125.8 Est GFR ( Amer) 135.9 Est GFR (Non-Af Amer) 117.3 BUN/Creatinine Ratio 15.5 Glucose 110 H Osmolality Calcium 8.8 Total Bilirubin 1.2 H D AST 42 H ALT 23 Alkaline Phosphatase 163 H Total Protein 7.6 Albumin 3.3 L Globulin 4.3 H Albumin/Globulin Ratio 0.8 L Folate 16.40 Urine Osmolality Ur Random Sodium 11/25/18 11/25/18 11/25/18 09:49 Unknown Unknown WBC RBC Hgb Hct MCV MCH MCHC RDW Std Deviation RDW Coeff of Luis Plt Count MPV Immature Gran % (Auto) Neut % (Auto) Lymph % (Auto) [place] % (Auto) Eos % (Auto) Baso % (Auto) Immature Gran # (Auto) Neut # (Auto) Lymph # (Auto) [place] # (Auto) Eos # (Auto) Baso # (Auto) Sodium Potassium Chloride Carbon Dioxide Anion Gap BUN Creatinine Est Cr Clr Drug Dosing Est GFR ( Amer) Est GFR (Non-Af Amer) BUN/Creatinine Ratio Glucose Osmolality 271 L Calcium Total Bilirubin AST ALT Alkaline Phosphatase Total Protein Albumin Globulin Albumin/Globulin Ratio Folate Urine Osmolality 867 H Ur Random Sodium 119 Medications Administered Current Inpatient Medications Acetaminophen (Tylenol) 650 mg PO Q4H PRN PRN Reason: pain/fever Stop: 12/24/18 02:42 Last Admin: 11/25/18 07:55 Dose: 650 mg Documented by: Enoxaparin Sodium (Lovenox) 40 mg SQ QAM [facility] Stop: 12/24/18 08:59 Last Admin: 11/25/18 09:39 Dose: Not Given Documented by: Lorazepam (Ativan) 1 mg in 2 mls @ 2 mls/min IV ONE PRN; Protocol PRN Reason: EtoH Withdrawal AWSS 6-10 Stop: 12/24/18 12:52 Last Admin: 11/24/18 13:42 Dose: 2 mls/min Documented by: Sodium Chloride (Nss 1000ml) 1,000 mls @ 125 mls/hr IV .Q8H YOMAIRA Stop: 12/25/18 09:59 Last Admin: 11/25/18 10:12 Dose: 125 mls/hr Documented by: Ketorolac Tromethamine (Toradol) 15 mg IV Q4H PRN PRN Reason: Pain Stop: 11/29/18 02:42 Last Admin: 11/25/18 04:07 Dose: 15 mg Documented by: Multivitamins (Multivitamin Tab) 1 tab PO QAM [facility] Stop: 12/25/18 09:59 Last Admin: 11/25/18 11:11 Dose: 1 tab Documented by: Resident Activity Tracking Resident Involvement: Resident Care Provided Care Provided: Adult Hospital Medicine
--- NOTE | 2018-11-25 13:01 | Anesthesiology Consultation ---
Date of Service November 25, 2018 Assessment & Plan Chart Review Chart Review: Acceptable Risk for Surgery and Patient NOT seen in Pre Admission Testing Consults Requested none ASA [id number] Proposed Anesthesia Anesthesia Type: General Risk / Benefits Reviewed With: PT / POA / Parent / Guardian, Accepts Plan and Informed Consent Obtained History Surgery Operation Date: 11/25/18 12:00 Proposed Procedures p ORIF Dynamic Hip Screw(Left) - Romeo Haynes MD Height/Weight Height: 5 ft 11 in Weight: 59 kg Allergies Allergy/AdvReac Type Severity Reaction Status Date / Time Penicillins AdvReac Mild TIRED Verified 10/28/18 22:51 Medications Home Medications Medication Instructions Recorded Confirmed Last Taken No Known Home Medications 10/28/18 11/23/18 Unknown Active Medications Generic Name Dose Route Start Last Admin Trade Name Freq PRN Reason Stop Dose Admin Acetaminophen 650 mg 11/24/18 02:43 11/25/18 07:55 Tylenol PO 12/24/18 02:42 650 mg Q4H PRN Administration pain/fever Enoxaparin Sodium 40 mg 11/24/18 09:00 11/25/18 09:39 Lovenox SQ 12/24/18 08:59 Not Given QAM YOMAIRA Lorazepam 1 mg in 2 mls @ 2 mls/min 11/24/18 12:53 11/25/18 13:29 Ativan IV 12/24/18 12:52 2 mls/min ONE PRN Administration EtoH Withdrawal AWSS 6-10 Protocol Sodium Chloride 1,000 mls @ 125 mls/hr 11/25/18 10:00 11/25/18 10:12 Nss 1000ml IV 12/25/18 09:59 125 mls/hr .Q8H YOMAIRA Administration Ketorolac Tromethamine 15 mg 11/24/18 15:51 11/25/18 04:07 Toradol IV 11/29/18 02:42 15 mg Q4H PRN Administration Pain Multivitamins 1 tab 11/25/18 10:00 11/25/18 11:11 Multivitamin Tab PO 12/25/18 09:59 1 tab QAM YOMAIRA Administration NPO Date Last Intake of Fluids: 11/25/18 Time Last Intake of Fluids: 08:30 Last Intake of Fluids Comment: sips with AM medications Date Last Intake of Solids: 11/24/18 Past Medical History Medical History Chronic hyponatremia History of esophageal stricture History of esophageal dilatation Hx of fracture of hip Hypertension (Chronic) Alcoholism (Chronic) Ambulatory dysfunction (Chronic) Dysphagia (Chronic) "h/o esophageal stricture s/p dilation in past" Frequent falls (Chronic) Tobacco abuse Exercise / Class Metabolic Activity III < 4 Walking/Shop/Light housework Past Family History Family History Other Cancer Hypertension Past Surgical History Surgical History History of esophagogastroduodenoscopy (EGD) History of hip surgery s/p fall and fx Past Anesthesia History No Hx of Anesthesia Complications and No Family Hx of Anesthesia Complications History of PONV No Hx of PONV and No Hx of Motion Sickness Social History Smoking Status: Former smoker Hx Alcohol Use: Yes Alcohol type: beer alcohol intake frequency: 3 or more drinks per day Hx Substance Use: No Physical Exam Vital Signs Last Vital Signs Temp 36.3 C L 11/25/18 07:15 Pulse 97 H 11/25/18 07:15 Resp 18 11/25/18 07:15 BP 154/97 H 11/25/18 07:15 Pulse Ox 95 11/25/18 07:15 ENMT Mouth: + dentition abnormality, + poor dentition, + chipped teeth and + loose teeth Thyromental Distance: > or= 3.5 Finger Breadths Mallampati Class: II Neck normal visual inspection and trachea midline; neck extension not limited Respiratory normal respiratory effort Auscultation: lungs clear to auscultation bilaterally Cardiovascular Rate/Rhythm: regular rate and regular rhythm Heart Sounds: no murmur Vessels: no carotid bruit Musculoskeletal Spine: normal cervical ROM Neurologic moves all extremities Motor/Sensory: no sensory deficit Psychiatric Orientation: alert and oriented x 3 Testing Chest X-Ray Date: 08/26/18 moderate emphysma;chronic interstitial fibrosis Echocardiogram Date: 07/31/18 EF: 65 LV Function: normal RWMA: + none Bicuspid AV; dilated Ao root and Asc. AO. to 4.1-4.3 cm Laboratory Results 11/25/18 06:07 11/25/18 06:07 PT 10.1 Seconds (9.0-12.0) 11/24/18 06:35 INR 1.0 (0.9-1.1) 11/24/18 06:35 Urine Color Yellow 11/23/18 21:48 Urine Appearance Clear (Clear) 11/23/18 21:48 Urine pH 6.0 (4.5-7.5) 11/23/18 21:48 Ur Specific [place] 1.009 (1.000-1.030) 11/23/18 21:48 Urine Protein Negative (Negative) 11/23/18 21:48 Urine Glucose (UA) Negative (Negative) 11/23/18 21:48 Urine Ketones Trace (Negative) H 11/23/18 21:48 Urine Nitrite Negative (Negative) 11/23/18 21:48 Ur Leukocyte Esterase Negative (Negative) 11/23/18 21:48 11/24/18 Unknown Gram Stain - Final Joint Fluid/Space (Synovial) Aerobic and Anaerobic Culture - Preliminary No growth to date.
[2018-11-25] MEDS ORDERED: fentaNYL citrate 100 MCG/2 ML VIAL ONE ×2 (13:10→15:15)
[2018-11-25] MEDS ORDERED: MIDAZOLAM HCL 1 MG/ML 2ML VIAL ONE (13:10)
[2018-11-25] MEDS: LORazepam 1 MG/2 ML VIAL IV PRN ×3 (13:29→21:35)
[2018-11-25] MEDS ORDERED: SUCCINYLCHOLINE CHLORIDE 20 MG/ML 10 ML VIAL ONE (14:36)
[2018-11-25] MEDS ORDERED: PHENYLEPHRINE 100MCG/ML 5ML SYR ONE (14:36)
[2018-11-25] MEDS ORDERED: LIDOCAINE HCL 2% 2 ML VIAL/AMP(20MG/ML) INFIL ONE (14:36)
[2018-11-25] MEDS ORDERED: CISATRACURIUM BESYLATE IV SOLN 2 MG/ML 10 ML VIAL IV ONE (14:36)
[2018-11-25] MEDS ORDERED: ONDANSETRON INJ 2 MG/ML 2 ML VIAL ONE (14:36)
[2018-11-25] MEDS ORDERED: PROPOFOL IV EMULSION 10 MG/ML 20 ML VIAL IV ONE (14:36)
[2018-11-25] MEDS ORDERED: DEXAMETHASONE SOD INJ 4 MG/ML VIAL ONE (14:36)
[2018-11-25] MEDS ORDERED: CEFAZOLIN 2000MG 2,000 MG/15 ML SYR IV SCH (14:45)
[2018-11-25] MEDS ORDERED: DexMEDEtomidine HCL IV 100 MCG/ML VIAL ONE (15:00)
--- NOTE | 2018-11-25 15:20 | Fluoroscopy Report ---
FL hip LT 2-3V CLINICAL HISTORY: Left hip fracture COMPARISON STUDY: 11/24/2018 FLUOROSCOPY TIME: 57 seconds. NUMBER OF FLUOROSCOPIC IMAGES: 3 FINDINGS: There is been internal fixation of the left femoral neck fracture with a compression screw and plate. Alignment appears anatomic. There is no dislocation. IMPRESSION: Internal fixation of the patient's left hip fracture. Electronically signed by: Alejandro Lucas M.D. 11/25/2018 3:19 PM
--- NOTE | 2018-11-25 15:21 | Post Operative Brief Note ---
Immediate Post Op Note v1 Date of Surgery November 25, 2018 Pre & Post Diagnosis Operation Date: 11/25/18 12:00 Pre-Op Diagnosis: LEFT FEMORAL NECK FRACTURE Post-Op Diagnosis: LEFT FEMORAL NECK FRACTURE Procedure Operation Date: 11/25/18 12:00 Actual Procedures p Left Open reduction Internal fixation Dynamic Hip Screw(Left) - Romeo Haynes MD Surgeon Romeo Haynes MD Wood Furniture Assembler Dorie Hilton PA-C Estimated Blood Loss 25 Findings Consistent with Post-Op Diagnosis Fluids 700 cc Drains Nielsen Catheter Anesthesia Type General Complications none Disposition Accompanied Patient To Recovery: No Disposition: Recovery Room
--- NOTE | 2018-11-25 15:32 | Operative Report ---
Post Operative Report Pre & Post Diagnosis Operation Date: 11/25/18 12:00 Pre-Op Diagnosis: INTRACTABLE LEFT HIP PAIN Post-Op Diagnosis: INTRACTABLE LEFT HIP PAIN Procedure Operation Date: 11/25/18 12:00 Actual Procedures p Left Open reduction Internal fixation Dynamic Hip Screw(Left) - Romeo Haynes MD Surgeon Yohan Calles. Field Crop Farming Supervisor Dorie Hilton PA-C Estimated Blood Loss 25 Findings Consistent with Post-Op Diagnosis Specimens None Anesthesia Type General Complications none Disposition Accompanied Patient To Recovery: No Disposition: Recovery Room Description of Procedure Patient was taken to the operating room and placed under general anesthesia. He was given 2 g of IV Ancef for surgical prophylaxis. Timeout was performed. He was prepped and draped in routine sterile fashion. I was present during the entire case and assisted with positioning, exposure, hardware implantation, closure and dressings. Please see Dr. Haynes's operative report for further detail. Patient was awakened and transferred to the recovery room in stable condition. I attest to the content of the Intraoperative Record and any orders documented therein. Any exceptions are noted below.
[2018-11-25] MEDS ORDERED: PROMETHAZINE HCL 12.5 MG in SODIUM CHLORIDE 0.9% 50 ML IV PRN (15:42)
[2018-11-25] MEDS ORDERED: ePHEDrine sulfate 50 MG/ML AMP IV PRN (15:42)
[2018-11-25] MEDS ORDERED: LABETALOL HCL IV 5 MG/ML 20ML IV PRN (15:42)
[2018-11-25] MEDS ORDERED: fentaNYL citrate 100 MCG/2 ML VIAL IV PRN (15:42)
[2018-11-25] MEDS ORDERED: NALOXONE HCL 0.4 MG/1 ML VIAL/CARP IV PRN ×2 (15:42→17:17)
[2018-11-25] MEDS ORDERED: ONDANSETRON INJ 2 MG/ML 2 ML VIAL IV PRN ×2 (15:42→17:17)
[2018-11-25] MEDS ORDERED: FLUMAZENIL 0.1 MG/1 ML 10 ML VIAL IV PRN (15:42)
[2018-11-25] MEDS ORDERED: ATROPINE SULFATE 0.1 MG/ML 10ML SYR IV PRN (15:42)
--- NOTE | 2018-11-25 15:56 | XRay Report ---
XR hip LT min 2V CLINICAL HISTORY: Left hip fracture status post surgery COMPARISON: 11/23/2018 DISCUSSION: There is been internal fixation of a femoral neck fracture with a compression screw and p late. IMPRESSION: Internally fixated left hip fracture. No dislocation. Electronically signed by: Alejandro Lucas M.D. 11/25/2018 3:55 PM
--- NOTE | 2018-11-25 16:56 | Anesthesiology Progress Note ---
Date of Service November 25, 2018 Anesthesia Post Procedure Vital Signs Vital Signs: Temp Pulse Pulse Resp BP BP BP 11/25/18 16:45 91 H 151/99 H 11/25/18 16:42 93 H 11/25/18 16:41 100 H 156/100 H 11/25/18 16:40 104 H 153/106 H 11/25/18 16:35 99 H 11/25/18 16:31 97 H 150/101 H 11/25/18 16:30 101 H 11/25/18 16:26 93 H 11/25/18 16:25 92 H 147/105 H 11/25/18 16:22 86 142/95 H 11/25/18 16:21 78 11/25/18 16:20 89 147/102 H 11/25/18 16:16 36.8 C 93 H 11/25/18 16:15 84 149/99 H 11/25/18 16:12 78 11/25/18 16:11 80 144/94 H 11/25/18 16:10 82 11/25/18 16:07 87 150/100 H 11/25/18 16:05 88 11/25/18 16:01 97 H 137/109 H 11/25/18 16:00 90 11/25/18 15:59 88 165/101 H 11/25/18 15:56 78 11/25/18 15:55 83 153/100 H 11/25/18 15:51 73 11/25/18 15:50 78 98 H 20 144/93 H 133/94 11/25/18 15:46 91 H 11/25/18 15:45 87 139/90 11/25/18 15:42 101 H 139/104 H 11/25/18 15:41 36.8 C 90 20 130/90 11/25/18 15:40 107 H 11/25/18 07:15 36.3 C L 97 H 18 154/97 H 11/24/18 23:18 37.1 C 106 H 20 126/75 11/24/18 21:07 36.8 C 109 H 18 120/89 Pulse Ox 11/25/18 16:45 85 L 11/25/18 16:42 11/25/18 16:41 11/25/18 16:40 11/25/18 16:35 11/25/18 16:31 11/25/18 16:30 11/25/18 16:26 97 11/25/18 16:25 98 11/25/18 16:22 97 11/25/18 16:21 98 11/25/18 16:20 100 11/25/18 16:16 98 11/25/18 16:15 99 11/25/18 16:12 98 11/25/18 16:11 98 11/25/18 16:10 98 11/25/18 16:07 97 11/25/18 16:05 99 11/25/18 16:01 100 11/25/18 16:00 99 11/25/18 15:59 100 11/25/18 15:56 98 11/25/18 15:55 98 11/25/18 15:51 98 11/25/18 15:50 98 11/25/18 15:46 96 11/25/18 15:45 97 11/25/18 15:42 94 11/25/18 15:41 96 11/25/18 15:40 11/25/18 07:15 95 11/24/18 23:18 94 11/24/18 21:07 96 Pain Intensity Left Hip: Pain Intensity: 0 Transfer of Care Handoff Completed per policy Notes Mental Status: alert / awake / arousable Patient Amnestic to Procedure: Yes Nausea / Vomiting: adequately controlled Pain: adequately controlled Airway Patency, RR, SpO2: stable & adequate BP & HR: stable & adequate Hydration State: stable & adequate Anesthetic Complications: no major complications apparent
[2018-11-25] MEDS ORDERED: GABAPENTIN 1200MG ALCOHOL WITHDRAWAL LOAD PO STA (18:24)
[2018-11-25] MEDS ORDERED: LORazepam 1 MG TAB PO PRN (18:42)
[2018-11-25] MEDS ORDERED: GABAPENTIN 600 MG TAB PO SCH (19:00)
[2018-11-25] MEDS ORDERED: LORazepam 1 MG/2 ML VIAL IV STA (20:38)
--- NOTE | 2018-11-25 21:03 | Operative Report ---
DATE OF OPERATION: 11/25/2018 PREOPERATIVE DIAGNOSIS: Left femoral neck fracture, closed, nondisplaced. POSTOPERATIVE DIAGNOSIS: Left femoral neck fracture, closed, nondisplaced. OPERATION PERFORMED: Open reduction and internal fixation of left femoral neck fracture. SURGEON: Romeo Haynes MD. RN BURN: Dorie Hilton PA-C. ESTIMATED BLOOD LOSS: 25 mL. INTRAVENOUS FLUIDS: 700 mL crystalloid. SPECIMENS: None. COMPLICATIONS: None. IMPLANTS: 1. Synthes 135 degree short barrel 2-hole plate. 2. A 100 mm length DHS lag screw. 3. Two 4.5 mm cortical screws, one measuring 42 mm, the other measuring 38 mm. INDICATIONS: Mr. Chang is a 53-year-old gentleman with a medical history significant for alcoholism. He presented to the Emergency Room D[place] night with complaints of left hip pain. He did not recall any trauma. He had an elevated blood alcohol at the time of presentation in the Emergency Room. He was admitted to the internal medicine service. Initial x-rays and CT scan were read as negative. He underwent a hip aspiration yesterday, which showed bloody fluid, but the Gram stain was negative. He therefore underwent an MRI, which showed a nondisplaced femoral neck fracture. I had a long discussion with him about the diagnosis, treatment options, risks and benefits of surgery, alternatives to surgery and expected outcomes. After reviewing all these, he elected to proceed with surgery. All questions were answered. Informed consent was signed. OPERATIVE FINDINGS: The femoral neck fracture was stabilized using a 2-hole 135 degree DHS screw and sideplate. DESCRIPTION OF OPERATION: The patient was identified in the preoperative holding area where his surgical site was marked. He was brought back to the main operating room where general anesthesia was induced on the hospital bed. He was then carefully moved over onto the fracture table. All bony prominences were padded. Perioperative antibiotics were administered. Fluoroscopic evaluation was then performed. There was no interval displacement of his femoral neck fracture. There was a small step off seen on the lateral but this remained unchanged with further internal and external rotation of the foot. The extremity was then prepped and draped in the normal sterile fashion. Prior to incision, a multidisciplinary timeout was called. All in the room were in agreement. We began by marking out the angle of our femoral neck on the AP view and marking this on the skin. We then marked the axis of the femur on the lateral view with fluoroscopy. Incision was then made slightly posterior to the axis of the femur. Subcutaneous dissection was taken down to the fascia. Fascia was incised in line with the incision. The vastus lateralis was then elevated and Hohmann retractors were placed to expose the lateral aspect of the femur. A blunt Hohmann was placed inferiorly again to expose the femur. Next, the 135 degree guide was placed along the femur and optimized on the AP and lateral view. We then drilled the guidewire up into the center-center position of the femoral head. This measured a 105 mm. We therefore set the drill at 95 mm. We then drilled over the guidewire. The drill, however, ended up a little bit shorter from the subchondral bone than I wanted. Therefore, we changed the drill setting to 100 mm and this allowed us to drill further up into the subchondral bone. A tap was then placed and we tapped up to the level of the drill. We then opened up 100 mm DHS screw and placed this without difficulty up into the subchondral bone of the femoral head. Next, the 2-hole 135 degree short barrel plate was slid down over the top of the screw. It was impacted down to the lateral cortex of the femur gently. We then placed two 4.5 mm cortical screws through the holes in a noncompression mode. Fluoroscopy was used to confirm the proper screw lengths. Our final images were then obtained confirming that the implants and hardware were all in good position. At this point, the wound was irrigated with copious amounts of normal saline. Meticulous hemostasis was ensured. We then ran the fascia with 0 Vicryl suture. Deep dermis was closed with a running 2-0 Vicryl followed by geovanna for the skin. Xeroform, 4 x 4s, and Tegaderm dressing was placed. The patient was awoken from anesthesia and transferred to the recovery room in stable condition. POSTOPERATIVE COURSE: The patient will be readmitted to the floor. We will encourage good nutrition as he is at risk for wound dehiscence secondary to malnutrition and a low preoperative albumin of 3.3. Internal medicine service will monitor him for alcohol withdrawal and treat his hyponatremia as appropriate. He will be weightbearing as tolerated on the left lower extremity. DVT prophylaxis with Xarelto and SCDs. Hard copy films will be obtained in the recovery room. I attest to the content of the Intraoperative Record and any orders documented therein. Any exception s are noted below.
[2018-11-25] MEDS: DIAZEPAM 5 MG/ML INJ 10ML VIAL IV PRN ×3 (21:50→23:25)
[2018-11-25] MEDS: CEFAZOLIN 1000MG 1,000 MG/7.5 ML SYR IV SCH (22:00)
--- NOTE | 2018-11-25 23:20 | Progress Note ---
Date of Service November 25, 2018 Received page from patient's nurse with concerns about delirium tremens. AWSS scale of 10. Concurrent concerned that he may be having some difficulty swallowing pills. Brief review of his chart: Patient underwent a left ORIF of his femoral neck fracture. He has a history of alcohol abuse including 10-12 beers per sitting. There also seems to be a history of prior esophageal strictures. Vitals reviewed with noted tachycardia. Nurses report that he is yelling out, agitated, and restless. Discussed case with Dr. Gonzalez. We will start Valium 10 mg IV every 30 minutes until goal of RASS 0 to -1. If this fails, patient may need phenobarbital. Examined patient around 11 PM. He is moderately restless, has a slight hand tremor, and seems to be hallucinating. We will continue to close monitor. Mark Miguel, PGY2 Overnight call Results & Data Vital Signs (Past 12 Hours) Vital Signs Temp Pulse Pulse Pulse Pulse Resp BP 11/25/18 23:08 36.8 C 120 H 14 11/25/18 21:40 11/25/18 20:30 36.6 C 116 H 22 11/25/18 19:55 36.6 C 110 H 18 11/25/18 19:18 36.8 C 110 H 18 11/25/18 18:30 11/25/18 18:14 37.0 C 108 H 17 11/25/18 17:38 36.8 C 96 H 18 11/25/18 16:45 91 H 151/99 H 11/25/18 16:42 93 H 11/25/18 16:41 100 H 156/100 H 11/25/18 16:40 104 H 153/106 H 11/25/18 16:35 99 H 11/25/18 16:31 97 H 150/101 H 11/25/18 16:30 101 H 11/25/18 16:26 93 H 11/25/18 16:25 92 H 147/105 H 11/25/18 16:22 86 142/95 H 11/25/18 16:21 78 11/25/18 16:20 89 147/102 H 11/25/18 16:16 36.8 C 93 H 11/25/18 16:15 84 149/99 H 11/25/18 16:12 78 11/25/18 16:11 80 144/94 H 11/25/18 16:10 82 11/25/18 16:07 87 150/100 H 11/25/18 16:05 88 11/25/18 16:01 97 H 137/109 H 11/25/18 16:00 90 11/25/18 15:59 88 165/101 H 11/25/18 15:56 78 11/25/18 15:55 83 153/100 H 11/25/18 15:51 73 11/25/18 15:50 78 98 H 20 144/93 H 11/25/18 15:46 91 H 11/25/18 15:45 87 139/90 11/25/18 15:42 101 H 139/104 H 11/25/18 15:41 36.8 C 90 20 11/25/18 15:40 107 H BP BP Pulse Ox Pulse Ox 11/25/18 23:08 116/78 97 11/25/18 21:40 93 11/25/18 20:30 146/99 H 94 11/25/18 19:55 115/77 94 11/25/18 19:18 122/77 96 11/25/18 18:30 154/99 H 11/25/18 18:14 161/113 H 96 11/25/18 17:38 144/93 H 97 11/25/18 16:45 85 L 11/25/18 16:42 11/25/18 16:41 11/25/18 16:40 11/25/18 16:35 11/25/18 16:31 11/25/18 16:30 11/25/18 16:26 97 11/25/18 16:25 98 11/25/18 16:22 97 11/25/18 16:21 98 11/25/18 16:20 100 11/25/18 16:16 98 11/25/18 16:15 99 11/25/18 16:12 98 11/25/18 16:11 98 11/25/18 16:10 98 11/25/18 16:07 97 11/25/18 16:05 99 11/25/18 16:01 100 11/25/18 16:00 99 11/25/18 15:59 100 11/25/18 15:56 98 11/25/18 15:55 98 11/25/18 15:51 98 11/25/18 15:50 133/94 98 11/25/18 15:46 96 11/25/18 15:45 97 11/25/18 15:42 94 11/25/18 15:41 130/90 96 11/25/18 15:40
[2018-11-26] MEDS: DIAZEPAM 5 MG/ML INJ 10ML VIAL IV PRN ×5 (02:09→06:08)
[2018-11-26] MEDS: SODIUM CHLORIDE 0.9% 1000ML 1,000 ML IV SCH ×3 (03:16→19:20)
[2018-11-26] MEDS: CEFAZOLIN 1000MG 1,000 MG/7.5 ML SYR IV SCH (06:08)
[2018-11-26 06:59] LABS: Albumin Level 2.9 gm/dl (3.4-5.0); BUN Creatinine Ratio 13.1 (10-20); Calcium 8.3 mg/dl (8.5-10.1); Creatinine Clr Calc Pharmacy 90.3 ml/min; Est GFR (African American) 118.6; Est GFR (Non-African American) 102.3
[2018-11-26 07:03] LABS: Hematocrit (blood only) 30.1 % (42-52); Hemoglobin 10.2 g/dL (14.0-18.0); Immature Granulocytes # (auto) 0.04 K/uL (0.00-0.02); Immature Granulocytes % (auto) 0.3 %; Mean Corpuscular Hgb Conc 33.9 g/dL (32-36); Mean Corpuscular Volume 87.5 fL (80-100); Mean Platelet Volume 9.6 fL (7.4-10.4); Monocytes # (auto) 1.28 K/uL (0.11-0.59); Monocytes % (auto) 10.7 %; Neutrophils # (auto) 10.06 K/uL (1.4-6.5); Platelet Count 188 K/uL (130-400); RDW Coefficient of Variation 15.5 % (11.5-14.5); Red Blood Count 3.44 M/uL (4.7-6.1); White Blood Count 11.98 K/uL (4.8-10.8)
[2018-11-26 07:07] LABS: Albumin Globulin Ratio 0.8 (0.9-2); Bilirubin,Total 1.1 mg/dl (0.2-1); Globulin 3.8 gm/dl (2.5-4.0); Total Protein 6.7 gm/dl (6.4-8.2)
[2018-11-26] MEDS: LORazepam 1 MG/2 ML VIAL IV PRN (08:10)
[2018-11-26] MEDS: FOLIC ACID 1 MG in SYRINGE 9.8 ML IV SCH (08:28)
[2018-11-26] MEDS ORDERED: PHENobarbital sodium 65 MG/ML VIAL IV PRN (08:37)
[2018-11-26] MEDS: ENOXAPARIN INJ 40 MG/0.4 ML SYR SQ SCH (08:43)
[2018-11-26] MEDS: MULTIVITAMIN TAB PO SCH (08:43)
[2018-11-26] MEDS: THIAMINE HCL 100 MG in SYRINGE 9 ML IV SCH (08:44)
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
[2018-11-26] MEDS ORDERED: LORazepam 3 MG/6 ML VIAL IV STA (10:03)
--- NOTE | 2018-11-26 10:19 | Critical Care Progress Note ---
Date of Service November 26, 2018 Assessment & Plan (1) Alcohol use disorder, severe, dependence: Impression: 1. Delirium tremens, the patient has been in the hospital over 3 days, this is likely about the time where he started having delirium tremens. He seems to have visual hallucination, consistent with phase II alcohol withdrawal. 2. Postop left hip ORIF. 3. Patient had a history of esophageal stricture with dilation. Plan: 1. I will discontinue Ativan on this patient. It seems to give him a paradoxical effect. 2. I will start the patient on phenobarbital 130 mg IV every 6 hours standing. 3. Phenobarbital 65 mg IV every 2 hours as needed for breakthrough delirium. 4. Continue with folic acid and thiamine. 5. Pain control. 6. DVT prophylaxis. 7. Once the patient able to take oral intake, we will start oral medications. 8. Due to visual hallucination, I will start the patient on neuroleptics, Zyprexa 5 mg sublingual twice daily. 9. Continue one-to-one sitter. Case discussed with the staff on rounds in details, critical care time spent with the patient was 45 minutes. Subjective The patient is confused and delirious, he was thinking that people are going to meet him right now in the room, appears somewhat agitated, he has been having pain expectedly at the surgical site, and the patient review of system was not obtainable due to his mental status. Review of Systems Review of Systems: Review of system is difficult to obtain due to delirium tremens. Physical Exam Physical Exam: Vital signs remained stable, blood pressure borderline elevated, O2 saturation has been maintained, no JVD, S1-S2, lungs are clear, abdomen is benign, the patient is somewhat agitated and moving 4 extremities, neurologically apart from delirium tremens does not appear to be focal, no skin rash. Results & Data Vital Signs (Past 12 Hours) Vital Signs Temp Pulse Pulse Resp BP Pulse Ox 11/26/18 06:00 36.8 C 113 H 24 136/102 H 94 11/26/18 05:39 36.9 C 116 H 24 134/108 H 96 11/26/18 03:50 36.6 C 118 H 22 139/78 97 11/26/18 03:12 36.8 C 114 H 22 105/75 98 11/26/18 02:46 36.7 C 128 H 26 H 142/74 H 96 11/26/18 02:10 36.6 C 126 H 24 147/90 H 95 11/26/18 00:24 36.4 C L 108 H 20 103/67 96 11/25/18 23:08 36.8 C 120 H 14 116/78 97 Laboratory Results Labs were reviewed slightly elevated WBC, hematocrit and platelets are stable, BMP is stable, Diagnostic Findings Imaging were reviewed including previous chest x-ray which was normal.
[2018-11-26] MEDS: OLANZAPINE ZYDIS 5 MG ORALLY DIS. TAB PO SCH ×2 (11:50→21:33)
[2018-11-26] MEDS ORDERED: GABAPENTIN 600 MG TAB PO SCH ×2 (14:00)
[2018-11-26] MEDS: DEXMEDETOMIDINE HCL 200 MCG in SODIUM CHLORIDE 0.9% 48 ML IV SCH ×2 (14:18→20:01)
--- NOTE | 2018-11-26 16:13 | Family Medicine Progress Note ---
Date of Service November 26, 2018 Assessment & Plan (1) DTs (delirium tremens): Being managed by Dr. Taveras in ICU for DT Delirium Tremens * Ativan seemed to be causing paradoxical effect, held ativan and replaced with phenobarbital as needed for symptoms * Patient has been sedated and delirious today pulling at people and equipment around him currently in soft restraints * Patient has been in hospital for over 72 hours, should hope to see some improvement shortly * Continuing to give folate and thiamine Left Femoral neck fracture * Initially presented with complaint of left lower extremity pain and difficulty bearing weight MRI confirmed left femoral neck fracture * ORIF by orthopedic surgery. Patient currently in restraints and sedated, hopefully has not done damage to his repair * WIll continue to assess F/E/N: NSS at 125 ml/hour DVT PPx: Lovenox Dispo: ICU Supervising Physician Co-Signing Physician Notes I personally examined the patient and verified all das points of history and exam, discussed case, and agree with decision making with Dr Rosado no meaningful HPI or ROS. quite delirious. nursing notes no new problems vitals noted, nad breathing unlabored, no pallor or icterus. delirious, somewhat agitated. EtOH withdrawal, delirium tremens - benzodiazepines and phenobarb, supportive care. hip fx - now s/p repair Subjective Mr. Chang was delirious today and not able to provide any history. Review of Systems Review of Systems: Unobtainable due to cognitive status Physical Exam Constitutional: + behavioral limitations (Delirius and thrashing about in the bed) Eyes: PERRL, conjunctivae normal, anicteric sclerae Respiratory: normal respiratory effort, lungs clear to auscultation Tachypnoeic Cardiovascular: Rate/Rhythm: regular rhythm and + tachycardic Heart Sounds: no click, no gallop, no murmur and no cardiac rub Gastrointestinal (Abdomen): normal bowel sounds, soft, nontender, no hepatosplenomegaly Results & Data Vital Signs (Past 12 Hours) Vital Signs Temp Pulse Pulse Resp BP BP Pulse Ox 11/26/18 15:01 106 H 23 137/73 92 11/26/18 14:30 85 L 11/26/18 14:01 36.5 C 135 H 11 L 167/87 H 95 11/26/18 13:01 101 H 15 117/84 93 11/26/18 13:00 99 H 12 97 05/13/19 12:01 99 H 15 141/94 H 97 11/26/18 11:01 106 H 14 127/93 98 11/26/18 10:01 100 H 14 124/83 97 11/26/18 09:01 105 H 24 123/83 97 11/26/18 08:01 36.9 C 123 H 21 123/84 11/26/18 07:01 102 H 15 125/86 97 11/26/18 06:00 36.8 C 113 H 24 136/102 H 94 11/26/18 05:39 36.9 C 116 H 24 134/108 H 96 Resident Activity Tracking Resident Involvement: Resident Care Provided Care Provided: Adult [facility]
[2018-11-27] MEDS: DEXMEDETOMIDINE HCL 200 MCG in SODIUM CHLORIDE 0.9% 48 ML IV SCH (01:42)
[2018-11-27] MEDS: SODIUM CHLORIDE 0.9% 1000ML 1,000 ML IV SCH ×3 (01:47→22:20)
[2018-11-27 05:53] LABS: Hematocrit (blood only) 32.2 % (42-52); Hemoglobin 10.6 g/dL (14.0-18.0); Mean Corpuscular Hgb Conc 32.9 g/dL (32-36); Mean Corpuscular Volume 90.7 fL (80-100); Mean Platelet Volume 9.7 fL (7.4-10.4); Platelet Count 192 K/uL (130-400); RDW Coefficient of Variation 15.7 % (11.5-14.5); RDW Standard Deviation 52.3 fL (36.4-46.3); Red Blood Count 3.55 M/uL (4.7-6.1); White Blood Count 12.61 K/uL (4.8-10.8)
[2018-11-27] MEDS: ENOXAPARIN INJ 40 MG/0.4 ML SYR SQ SCH (07:30)
[2018-11-27] MEDS: MULTIVITAMIN TAB PO SCH (07:33)
[2018-11-27] MEDS: OLANZAPINE ZYDIS 5 MG ORALLY DIS. TAB PO SCH ×2 (08:21→20:12)
--- NOTE | 2018-11-27 09:04 | Orthopedic Progress Note ---
Date of Service November 27, 2018 Assessment & Plan (1) Traumatic closed nondisplaced fracture of neck of left femur: POD 2 - ORIF left femoral neck fracture May be out of bed, weight bear as tolerated left lower extremity with assistance of a walker Ice to left hip PRN pain/swelling Allowed for full ROM left hip, knee and ankle No hip precautions needed. PT/OT to start Lovenox for DVT prophylaxis. Case management for discharge planning. Will continue to follow and discuss with Dr Haynes. Follow-up appointment scheduled with Dr Haynes in 2wks. If needs changed please call [phone]. Subjective Remains in ICU. Lethargic. Not responding to commands or questions this AM. Per nurse trialing without restraints. Was speaking some yesterday. Hasn't been out of bed as of yet. Therapy ordered to start tomorrow per nurse. Physical Exam Physical Exam: Laying in bed. Lethargic. Focused left hip exam: Dressings intact. Some dry blood noted. No redness or warmth. Patient didnt respond to log rolling of his left hip. Tolerated gentle PROM of left knee without response. SCDs on BLE. Calves soft. Palpable DP and PT pulses. Results & Data Vital Signs (Past 12 Hours) Vital Signs Temp Pulse Resp BP Pulse Ox 11/27/18 03:17 83 18 98/64 L 100 11/27/18 03:01 81 18 85/64 L 98 11/27/18 02:01 79 22 119/81 100 11/27/18 01:01 84 13 116/84 98 11/27/18 00:01 36.5 C 88 25 H 104/72 93 11/26/18 23:01 77 17 144/70 H 99 11/26/18 22:01 84 23 131/78 100 11/26/18 21:01 78 19 132/81 100 Laboratory Results 11/27/18 11/27/18 11/27/18 Range/Units 06:23 04:45 03:17 WBC 12.61 H (4.8-10.8) K/uL RBC 3.55 L (4.7-6.1) M/uL Hgb 10.6 L (14.0-18.0) g/dL Hct 32.2 L (42-52) % MCV 90.7 (80-100) fL MCH 29.9 (25-34) pg MCHC 32.9 (32-36) g/dL RDW Std Deviation 52.3 H (36.4-46.3) fL RDW Coeff of Luis 15.7 H (11.5-14.5) % Plt Count 192 (130-400) K/uL MPV 9.7 (7.4-10.4) fL POC Glucose 71 83 (70-99) 11/26/18 11/26/18 Range/Units 19:05 13:10 WBC (4.8-10.8) K/uL RBC (4.7-6.1) M/uL Hgb (14.0-18.0) g/dL Hct (42-52) % MCV (80-100) fL MCH (25-34) pg MCHC (32-36) g/dL RDW Std Deviation (36.4-46.3) fL RDW Coeff of Luis (11.5-14.5) % Plt Count (130-400) K/uL MPV (7.4-10.4) fL POC Glucose 104 H 102 H (70-99)
--- NOTE | 2018-11-27 09:17 | Family Medicine Progress Note ---
Date of Service November 27, 2018 Assessment & Plan (1) DTs (delirium tremens): Being managed by Dr. Taveras in ICU for DT Delirium Tremens * Ativan seemed to be causing paradoxical effect, held ativan and replaced with phenobarbital as needed for symptoms * Precedex started yesterday afternoon for agitation * Zyprexa for visual/auditory hallucinations * Patient has been sedated this morning but per nursing he was delirious and agitated at shift change today today pulling at people and equipment around him * Remains in soft restraints * Patient has been in hospital for over 72 hours, should hope to see some improvement shortly * Continuing to give folate and thiamine * Holding oral medications due to swallowing concerns Left Femoral neck fracture * Initially presented complaining of left lower extremity pain and difficult weightbearing * MRI confirmed left femoral neck fracture * ORIF by orthopedic surgery. Patient currently in restraints and sedated, hopefully has not done damage to his repair * WIll continue to assess F/E/N: NSS at 80 ml/hour NPO for now DVT PPx: Lovenox Dispo: ICU Supervising Physician Co-Signing Physician Notes I personally examined the patient and verified all das points of history and exam, discussed case, and agree with decision making with Dr Rosado no meaningful HPI or ROS. Case was discussed with prepress stripper and input greatly appreciated nursing notes no new problems vitals noted, nad breathing unlabored, no pallor or icterus. delirious, somewhat agitated. EtOH withdrawal, delirium tremens - precedex, phenobarb, supportive care, time. hip fx - now s/p repair, this appears stable DVT proph - lovenox Subjective Aaron Chang is somnolent and, when roused, delirius and unintelligible at this time. Review of Systems Review of Systems: Unobtainable due to cognitive status Physical Exam Constitutional: + behavioral limitations (sedated and somnolent) Eyes: PERRL, conjunctivae normal, anicteric sclerae Respiratory: normal respiratory effort, lungs clear to auscultation Cardiovascular: Rate/Rhythm: regular rate and regular rhythm Heart Sounds: no click, no gallop, no murmur and no cardiac rub Gastrointestinal (Abdomen): normal bowel sounds, soft, nontender, no hepatosplenomegaly Results & Data Vital Signs (Past 12 Hours) Vital Signs Temp Pulse Resp BP Pulse Ox 11/27/18 08:01 88 19 96/72 L 100 11/27/18 07:01 83 17 124/74 100 11/27/18 03:17 83 18 98/64 L 100 11/27/18 03:01 81 18 85/64 L 98 11/27/18 02:01 79 22 119/81 100 11/27/18 01:01 84 13 116/84 98 11/27/18 00:01 36.5 C 88 25 H 104/72 93 11/26/18 23:01 77 17 144/70 H 99 11/26/18 22:01 84 23 131/78 100 Resident Activity Tracking Resident Involvement: Resident Care Provided Care Provided: Adult Hospital Medicine
[2018-11-27] MEDS: THIAMINE HCL 100 MG in SYRINGE 9 ML IV SCH (11:05)
[2018-11-27] MEDS: FOLIC ACID 1 MG in SYRINGE 9.8 ML IV SCH (11:09)
[2018-11-27] MEDS ORDERED: DEXTROSE 50% 50 ML SYRINGE IV STA (11:55)
[2018-11-27] MEDS ORDERED: GLUCOSE 40% GEL 15 GM TUBE PO PRN (12:00)
[2018-11-27] MEDS ORDERED: CARBOHYDRATES FOR HYPOGLYCEMIA PO PRN (12:00)
[2018-11-27] MEDS ORDERED: DEXTROSE 50% 50 ML SYRINGE IV PRN (12:00)
[2018-11-27] MEDS ORDERED: GLUCAGON FOR INJ 1 MG VIAL IM PRN (12:00)
[2018-11-27] MEDS ORDERED: GLUCOSE 10 TABS/TUBE PO PRN (12:00)
--- NOTE | 2018-11-27 13:03 | XRay Report ---
XR KUB/Abdomen 1 view CLINICAL HISTORY: Abdominal series for nasogastric tube placement COMPARISON STUDY: 07/12/2016 FINDINGS: There is a nasogastric tube coiled within the pharynx. Repositioning is recommended. The he art is enlarged. There is interstitial thickening. There is atelectasis/consolidation at the right me dial lung base. IMPRESSION: The nasogastric tube is coiled within the pharynx and needs to be repositioned. Electronically signed by: Alejandro Lucas M.D. 11/27/2018 1:02 PM
--- NOTE | 2018-11-27 13:09 | XRay Report ---
XR KUB/Abdomen 1 view CLINICAL HISTORY: READJUSTMENT OF NGT COMPARISON STUDY: 11/27/2018 FINDINGS: The feeding tube has been adjusted and is now positioned within the stomach, the level the gastric cardia.. IMPRESSION: The recently placed feeding tube is positioned with its tip in the stomach. Electronically signed by: Alejandro Lucas M.D. 11/27/2018 1:07 PM
--- NOTE | 2018-11-27 15:38 | Critical Care Progress Note ---
Date of Service November 27, 2018 Assessment & Plan (1) Alcohol use disorder, severe, dependence: Impression: 1. Delirium tremens, the patient has been in the hospital over 3 days, this is likely about the time where he started having delirium tremens. He seems to have visual hallucination, consistent with phase II alcohol withdrawal. 2. Postop left hip ORIF. 3. Patient had a history of esophageal stricture with dilation. Plan: 1. Continue with phenobarbital and decrease the dose to 65 mg every 4 hours. 2. Change Precedex to as needed. 3. Keep phenobarbital 65 mg IV every 2 hours as needed for breakthrough delirium. 4. Continue with folic acid and thiamine. 5. The patient seems to be pain-free at the moment even when he wakes up he denies any pain. 6. DVT prophylaxis. 7. Place NG tube and start tube feeding. 8. Increase Zyprexa to 10 mg twice daily sublingual. 9. Continue with mitts. 10. Decrease IV fluid to 80 mL/h. Case discussed with the staff on rounds in details, critical care time spent with the patient was 45 minutes. Subjective The patient appears to be comfortable on the Precedex drip and phenobarbital however his level of consciousness become less at this point requiring stopping the Precedex drip. Otherwise no events overnight, no evidence of agitation or extensive tremor while sedated. Review of Systems Review of Systems: Review of system is not obtainable due to somnolence. Physical Exam Physical Exam: Somnolent but maintaining his airways, O2 saturation 95% on 2 L with a respiratory rate of 18, S1-S2 regular rate and rhythm, distant breath sounds, abdomen is benign, moving 4 extremities, remains delirious when he is awake. No skin rash. Dry mucosa. Results & Data Vital Signs (Past 12 Hours) Vital Signs Pulse Resp BP Pulse Ox 11/27/18 11:13 100 H 26 H 104/69 95 11/27/18 10:01 90 22 99/77 L 99 11/27/18 09:01 85 29 H 111/54 L 100 11/27/18 08:01 88 19 96/72 L 100 11/27/18 07:01 83 17 124/74 100 11/27/18 03:17 83 18 98/64 L 100 11/27/18 03:01 81 18 85/64 L 98 Laboratory Results Labs were reviewed which showed mild leukocytosis, Diagnostic Findings No new imaging of the chest. KUB was done for the NG tube reviewed and in satisfactory position,
[2018-11-27] MEDS: FIBERSOURCE HN 1.2 CAL 1000 ML BAG NG SCH ×2 (17:00→17:23)
[2018-11-27] MEDS ORDERED: GABAPENTIN 600 MG TAB PO SCH (18:00)
[2018-11-28] MEDS: DEXMEDETOMIDINE HCL 200 MCG in SODIUM CHLORIDE 0.9% 48 ML IV SCH (03:05)
[2018-11-28] MEDS: FOLIC ACID 1 MG in SYRINGE 9.8 ML IV SCH (08:08)
[2018-11-28] MEDS: THIAMINE HCL 100 MG in SYRINGE 9 ML IV SCH (08:08)
[2018-11-28] MEDS: OLANZAPINE ZYDIS 5 MG ORALLY DIS. TAB PO SCH ×2 (08:09→20:03)
[2018-11-28] MEDS: ENOXAPARIN INJ 40 MG/0.4 ML SYR SQ SCH (08:09)
--- NOTE | 2018-11-28 08:11 | Family Medicine Progress Note ---
Date of Service November 28, 2018 Assessment & Plan (1) DTs (delirium tremens): Being managed by Dr. Taveras in ICU for DT Delirium Tremens * Phenobarbital 65 mg q4h and 65 q2h prn. * Precedex prn for agitation * Zyprexa for visual/auditory hallucinations * NG tube placed receiving tube feeds. * Patient has been sedated this morning but per nursing he was delirious and agitated at shift change today today pulling at people and equipment around him * Remains in soft restraints * Patient has been in hospital for over 72 hours, should hope to see some improvement shortly * Continuing to give folate and thiamine IV * Holding oral medications due to swallowing concerns plus current reduced consciousness Left Femoral neck fracture * Initially presented complaining of left lower extremity pain and difficult weightbearing * MRI confirmed left femoral neck fracture * ORIF by orthopedic surgery. Patient currently in restraints and sedated * Will continue to assess F/E/N: NSS at 80 ml/hour NPO for now DVT PPx: Lovenox Dispo: ICU Supervising Physician Co-Signing Physician Notes I personally examined the patient and verified all das points of history and exam, discussed case, and agree with decision making with Dr Rosado no meaningful HPI or ROS. calm now nursing notes no new problems vitals noted, nad breathing unlabored, no pallor or icterus. resting in bed. focal neuro deficits EtOH withdrawal, delirium tremens -phenobarb, supportive care, time. seems to be improving. hip fx - now s/p repair, this appears stable, PT/OT once able DVT proph - lovenox Subjective Aaron Chang still delirious and somnolent today. Not able to provide any interval history. Review of Systems Review of Systems: Unobtainable due to reduced consciousness Physical Exam Constitutional: + behavioral limitations (sedated and somnolent) Eyes: PERRL, conjunctivae normal, anicteric sclerae Respiratory: normal respiratory effort, lungs clear to auscultation Cardiovascular: Rate/Rhythm: regular rate and regular rhythm Heart Sounds: no click, no gallop, no murmur and no cardiac rub Gastrointestinal (Abdomen): normal bowel sounds, soft, nontender, no hepatosplenomegaly Results & Data Vital Signs (Past 12 Hours) Vital Signs Temp Pulse Resp BP Pulse Ox 11/28/18 07:00 84 18 123/74 94 11/28/18 06:01 84 18 107/64 99 11/28/18 05:00 87 21 130/84 97 11/28/18 04:01 88 19 132/79 94 11/28/18 03:01 87 17 139/82 99 11/28/18 02:01 99 H 19 141/87 H 11/28/18 01:01 95 H 20 135/82 96 11/28/18 00:01 36.5 C 100 H 36 H 132/87 100 11/27/18 23:16 106 H 11/27/18 23:01 110 H 20 155/93 H 99 Resident Activity Tracking Resident Involvement: Resident Care Provided Care Provided: Adult Hospital Medicine
[2018-11-28] MEDS ORDERED: THIAMINE HCL 300 MG in SYRINGE 9 ML IV SCH (08:30)
--- NOTE | 2018-11-28 08:57 | Orthopedic Progress Note ---
Date of Service November 28, 2018 Assessment & Plan (1) Traumatic closed nondisplaced fracture of neck of left femur: POD 3- ORIF left femoral neck fracture May be out of bed, weight bear as tolerated left lower extremity with assistance of a walker Ice to left hip PRN pain/swelling Allowed for full ROM left hip, knee and ankle No hip precautions needed. PT/OT to start when able. Lovenox for DVT prophylaxis as per medicine Case management for discharge planning. Will continue to follow and discuss with Dr Haynes. Follow-up appointment scheduled with Dr Haynes in 2wks. If needs changed please call [phone]. Will sign off at this time, please call with questions or concerns. Subjective in bed, arousable but not awake or alert, seems disoriented. Physical Exam Physical Exam: Left hip incision, dressing clean, dry, intact. Tolerates gentle ROM left hip, no distal edema, nontender with palpation of left or right calf. Doesn't follow any commands. Results & Data Vital Signs (Past 12 Hours) Vital Signs Temp Pulse Resp BP Pulse Ox 11/28/18 07:00 84 18 123/74 94 11/28/18 06:01 84 18 107/64 99 11/28/18 05:00 87 21 130/84 97 11/28/18 04:01 88 19 132/79 94 11/28/18 03:01 87 17 139/82 99 11/28/18 02:01 99 H 19 141/87 H 11/28/18 01:01 95 H 20 135/82 96 11/28/18 00:01 36.5 C 100 H 36 H 132/87 100 11/27/18 23:16 106 H 11/27/18 23:01 110 H 20 155/93 H 99
[2018-11-28] MEDS: MULTIVITAMIN TAB PO SCH (09:28)
[2018-11-28] MEDS: THIAMINE HCL 300 MG in SODIUM CHLORIDE 0.9% 50 ML IV SCH ×2 (09:40→16:10)
[2018-11-28] MEDS: SODIUM CHLORIDE 0.9% 1000ML 1,000 ML IV SCH (09:40)
[2018-11-28] MEDS: LACTULOSE SYRUP 30 GM/45 ML UDP PO SCH ×2 (09:40→16:11)
[2018-11-28] MEDS: MULTI VIT W/MINERALS LIQUID 15 ML UDP NG SCH (10:13)
[2018-11-28] MEDS: KETOROLAC TROMETHAMINE 15 MG/ML VIAL IV PRN (12:11)
[2018-11-28] MEDS: PHENobarbital 32.4 MG TAB PO SCH ×3 (12:11→20:04)
--- NOTE | 2018-11-28 13:01 | Critical Care Progress Note ---
Date of Service November 28, 2018 Assessment & Plan (1) Alcohol use disorder, severe, dependence: Impression: 1. Delirium tremens, the patient has been in the hospital over 3 days, this is likely about the time where he started having delirium tremens. He seems to have visual hallucination, consistent with phase II alcohol withdrawal. 2. Postop left hip ORIF. 3. Patient had a history of esophageal stricture with dilation. Plan: 1. I will start phenobarbital 34 mg p.o. every 4 hours via the NG tube. 2. Taper Precedex to off. 3. Keep phenobarbital 65 mg IV every 2 hours as needed for breakthrough delirium. 4. Change thiamine to 300 mg IV 3 times daily. 5. The patient seems to be pain-free at the moment even when he wakes up he denies any pain. 6. DVT prophylaxis. 7. Tube feeding to goal. Keep the patient in semirecumbent position. 8. Continue Zyprexa to 10 mg twice daily sublingual. 9. Continue with mitts. 10. Discontinue IV fluid as the patient is at goal with tube feeding. 11. Start clonidine 0.1 mg NG tube twice daily. 12. Patient is not suitable for physical therapy due to unsteadiness due to DT. Case discussed with the staff on rounds in details, critical care time spent with the patient was 45 minutes. Subjective Remains confused at times, when I examined him he was more somnolent and confused. Review of system was not obtainable. No events overnight. Patient was on a small dose of Precedex. Review of Systems Review of Systems: Review of system was not obtainable as the patient was somnolent. Physical Exam Physical Exam: His vital signs remained stable, he does not keep his O2 saturation sensor in place, however his O2 sat is 95% on nasal cannula, no stridor, S1-S2, distant breath sounds bilaterally, abdomen is benign, moving 4 extremities. Neurologically difficult to assess. Results & Data Vital Signs (Past 12 Hours) Vital Signs Pulse Resp BP Pulse Ox 11/28/18 11:01 103 H 22 101/68 96 11/28/18 10:02 106 H 13 148/88 H 11/28/18 09:01 83 17 128/79 95 11/28/18 08:00 97 H 25 H 155/91 H 96 11/28/18 07:00 84 18 123/74 94 11/28/18 06:01 84 18 107/64 99 11/28/18 05:00 87 21 130/84 97 11/28/18 04:01 88 19 132/79 94 11/28/18 03:01 87 17 139/82 99 11/28/18 02:01 99 H 19 141/87 H 11/28/18 01:01 95 H 20 135/82 96 Laboratory Results No new labs. Diagnostic Findings No new chest x-ray.
[2018-11-28] MEDS: OXYCODONE HCL IR 5 MG TAB (IMMEDIATE RELEASE) PO PRN (16:20)
[2018-11-28] MEDS: cloNIDine HCl 0.1 MG TAB PO SCH (20:02)
[2018-11-29] MEDS: PHENobarbital 32.4 MG TAB PO SCH ×6 (00:07→21:58)
[2018-11-29] MEDS: THIAMINE HCL 300 MG in SODIUM CHLORIDE 0.9% 50 ML IV SCH ×2 (00:07→10:01)
[2018-11-29] MEDS: LACTULOSE SYRUP 30 GM/45 ML UDP PO SCH (02:25)
[2018-11-29] MEDS ORDERED: GABAPENTIN 600 MG TAB PO SCH (06:00)
[2018-11-29] MEDS ORDERED: LACTULOSE SYRUP 30 GM/45 ML UDP PO PRN (08:10)
[2018-11-29] MEDS: OXYCODONE HCL IR 5 MG TAB (IMMEDIATE RELEASE) PO PRN (08:55)
[2018-11-29] MEDS: FOLIC ACID 1 MG in SYRINGE 9.8 ML IV SCH (10:01)
[2018-11-29] MEDS: OLANZAPINE ZYDIS 5 MG ORALLY DIS. TAB PO SCH ×2 (10:02→21:47)
[2018-11-29] MEDS: cloNIDine HCl 0.1 MG TAB PO SCH ×2 (10:02→22:05)
[2018-11-29] MEDS: ENOXAPARIN INJ 40 MG/0.4 ML SYR SQ SCH (10:02)
[2018-11-29] MEDS: MULTI VIT W/MINERALS LIQUID 15 ML UDP NG SCH (10:02)
--- NOTE | 2018-11-29 10:28 | Family Medicine Progress Note ---
Date of Service November 29, 2018 Assessment & Plan (1) DTs (delirium tremens): Left Femoral neck fracture repaired with orif, alcohol withdrawal and DT's seem to be improving Delirium Tremens * Phenobarbital 32.4 mg q6h carmella * Precedex weaned * Zyprexa for visual/auditory hallucinations 10 mg BID * NG tube to be pulled today * Nursing agrees patient has been much more alert today * Plan to move upstairs today for remainder of his care. * Remains in soft restraints * Continuing to give folate and thiamine IV * Will have another speech evaluation today to check swallowing ability. Left Femoral neck fracture * Initially presented complaining of left lower extremity pain and difficult weightbearing * MRI confirmed left femoral neck fracture * ORIF by orthopedic surgery * Still having some soreness, but tells me pain is not too bad. * Ortho signing off on patient, will benefit from some PT once cognitively able. F/E/N: Feeding tube to be pulled today, regular diet pending that. DVT PPx: Lovenox Dispo: Hope to step down to med surg from ICU Supervising Physician Co-Signing Physician Notes I personally examined the patient and verified all das points of history and exam, discussed case, and agree with decision making with Dr Rosado no meaningful HPI or ROS. calm. Dysphasia noted on speech eval. nursing notes no new problems vitals noted, nad breathing unlabored, no pallor or icterus. resting in bed. focal neuro deficits EtOH withdrawal, delirium tremens -wean phenobarb, supportive care, time. It is somewhat concerning that as his florid DT symptoms of agitation etc. are improving, his mental status overall still remains quite poor including his dysphasia. However concerns that he may have a degree of chronic alcoholic encephalopathy. hip fx - now s/p repair, this appears stable, PT/OT eval and treat DVT proph - lovenox Subjective More alert today, talking in full clear sentences, but far too confused to carry on normal conversation. Slipped between telling me he needed to cross the street to telling me how his initial imaging showed no fracture but repeat MRI did (which is true). Review of Systems Review of Systems: Unobtainable due to cognitive status Physical Exam Constitutional: well developed, well nourished and + intoxicated appearing; no acute distress Eyes: PERRL, conjunctivae normal, anicteric sclerae Respiratory: normal respiratory effort, lungs clear to auscultation Cardiovascular: Rate/Rhythm: regular rate and regular rhythm Heart Sounds: no click, no gallop, no murmur and no cardiac rub Gastrointestinal (Abdomen): normal bowel sounds, soft, nontender, no hepatosplenomegaly Feeding tube in place Psychiatric: Orientation: alert Delirious, difficult to converse with. Results & Data Vital Signs (Past 12 Hours) Vital Signs Temp Pulse Pulse Resp BP BP Pulse Ox 11/29/18 09:00 94 H 14 120/78 99 11/29/18 08:01 95 H 21 117/69 99 11/29/18 08:00 97 H 17 116/69 98 11/29/18 07:41 98 H 17 80/60 L 98 11/29/18 07:01 102 H 17 81/60 L 98 11/29/18 05:01 102 H 18 109/71 99 11/29/18 04:01 36.5 C 98 H 14 133/83 98 11/29/18 03:01 103 H 15 115/74 98 11/29/18 02:01 89 18 136/75 96 11/29/18 01:01 91 H 25 H 89/60 L 95 11/29/18 00:01 36.7 C 91 H 16 93/65 L 100 11/28/18 22:38 37 C 87 16 82/62 L 99 Resident Activity Tracking Resident Involvement: Resident Care Provided Care Provided: Adult Hospital Medicine
--- NOTE | 2018-11-29 12:59 | Critical Care Progress Note ---
Date of Service November 29, 2018 Assessment & Plan (1) Alcohol use disorder, severe, dependence: Impression: 1. Delirium tremens, improving slowly. 2. Postop left hip ORIF. 3. History of esophageal stricture status post dilation. Plan: 1. Improved his mental status slightly, I will decrease his phenobarbital to 34 mg every 6 hours. 2. Discontinue Precedex. 3. Discontinue as needed phenobarbital. 4. Change thiamine to 300 mg via NG tube daily. 5. Pain control. 6. DVT prophylaxis. 7. Tube feeding to goal. Keep the patient in semirecumbent position. 8. Continue Zyprexa to 10 mg twice daily sublingual. 9. Clonidine 0.1 mg p.o. twice daily. 10. Discontinue IV fluid. 11. Speech pathology consult, appreciated. Patient is going for MBS. 12. Labs in the morning. Case discussed with the staff on rounds in details, critical care time spent with the patient was 45 minutes. (2) DTs (delirium tremens): Subjective The patient is more awake and following commands, however she continued to be confused, no tremor was noted, no events overnight, he failed swallow eval, appreciate speech pathology arranging for MBS. Review of Systems Review of Systems: Review of system is not reliably obtainable in this patient due to his delirium. Physical Exam Physical Exam: Vital signs remained stable, saturation 99% on 2 L, S1-S2, distant breath sounds, abdomen is benign, NG tube in place, moving 4 extremities, no rash. Results & Data Vital Signs (Past 12 Hours) Vital Signs Temp Pulse Resp BP Pulse Ox 11/29/18 12:01 36.4 C L 92 H 17 93/60 L 99 11/29/18 11:01 95 H 14 84/55 L 99 11/29/18 10:01 84 12 99/75 L 96 11/29/18 09:00 94 H 14 120/78 99 11/29/18 08:01 95 H 21 117/69 99 11/29/18 08:00 37.3 C 97 H 17 116/69 98 11/29/18 07:41 98 H 17 80/60 L 98 11/29/18 07:01 102 H 17 81/60 L 98 11/29/18 05:01 102 H 18 109/71 99 11/29/18 04:01 36.5 C 98 H 14 133/83 98 11/29/18 03:01 103 H 15 115/74 98 11/29/18 02:01 89 18 136/75 96 11/29/18 01:01 91 H 25 H 89/60 L 95 Laboratory Results No new labs today. Diagnostic Findings No new imaging.
--- NOTE | 2018-11-29 13:43 | Fluoroscopy Report ---
FL video swallow HISTORY: Suspected aspiration TECHNIQUE: Video fluoroscopic evaluation of swallowing was performed in the AP and lateral projection s by the speech pathology staff. The patient is fed nectar-thick and thin liquid barium, a barium coa chidi wafer, and barium pudding. FLUOROSCOPY TIME: 0.5 minutes. NUMBER OF FLUOROSCOPY IMAGES: 0 COMPARISON STUDY: None. FINDINGS: The patient was administered thin liquid barium via a teaspoon. There was hernan aspiration with a cough response. The study was terminated at this point. IMPRESSION: 1. Extensive aspiration of thin liquids. 2. Please see the speech pathologist report for detailed findings and recommendations. Electronically signed by: Alejandro Lucas M.D. 11/29/2018 1:42 PM
[2018-11-29] MEDS: THIAMINE HCL 100 MG TAB PO SCH (14:38)
[2018-11-29] MEDS: FIBERSOURCE HN 1.2 CAL 1000 ML BAG NG SCH (17:40)
[2018-11-29] MEDS: cloNIDine HCl 0.1 MG TAB NG SCH (21:47)
[2018-11-30] MEDS: OXYCODONE HCL IR 5 MG TAB (IMMEDIATE RELEASE) PO PRN (00:35)
[2018-11-30] MEDS: PHENobarbital 32.4 MG TAB PO SCH ×3 (03:17→20:41)
[2018-11-30 07:34] LABS: Hemoglobin 9.2 g/dL (14.0-18.0); Mean Corpuscular Hgb Conc 34.1 g/dL (32-36); Mean Corpuscular Volume 90.3 fL (80-100); Mean Platelet Volume 8.9 fL (7.4-10.4); Platelet Count 306 K/uL (130-400); RDW Coefficient of Variation 16.5 % (11.5-14.5); RDW Standard Deviation 52.7 fL (36.4-46.3); Red Blood Count 2.99 M/uL (4.7-6.1); White Blood Count 9.31 K/uL (4.8-10.8)
[2018-11-30] MEDS: MULTI VIT W/MINERALS LIQUID 15 ML UDP NG SCH (08:05)
[2018-11-30] MEDS: FOLIC ACID 1 MG in SYRINGE 9.8 ML IV SCH (08:05)
[2018-11-30] MEDS: cloNIDine HCl 0.1 MG TAB NG SCH ×2 (08:05→20:48)
[2018-11-30] MEDS: OLANZAPINE ZYDIS 5 MG ORALLY DIS. TAB PO SCH (08:06)
[2018-11-30] MEDS: ENOXAPARIN INJ 40 MG/0.4 ML SYR SQ SCH (08:06)
[2018-11-30] MEDS: THIAMINE HCL 100 MG TAB PO SCH (08:06)
--- NOTE | 2018-11-30 09:15 | Family Medicine Progress Note ---
Date of Service November 30, 2018 Assessment & Plan (1) DTs (delirium tremens): Left Femoral neck fracture repaired with orif, alcohol withdrawal and DT's seem to be improving Delirium Tremens * Phenobarbital 32.4 mg q12h carmella will finish taper tomorrow * Zyprexa for visual/auditory hallucinations 10 mg BID * Fluoroscopic swallow study shows hernan aspiration of fluid. * Will keep NPO, perhaps with improved cognitive status we may see some improvement in swallow mechanics. * Speech continuing to follow * Plan to move upstairs today for remainder of his care. * No longer in any restraints * Continuing to give folate and thiamine IV Left Femoral neck fracture * Initially presented complaining of left lower extremity pain and difficult weightbearing * MRI confirmed left femoral neck fracture * ORIF by orthopedic surgery * Still having some soreness, but tells me pain is not too bad. * Ortho signing off on patient, will benefit from some PT once cognitively able. F/E/N: NG tube DVT PPx: Lovenox Dispo: Med Surg Supervising Physician Co-Signing Physician Notes I personally examined the patient and verified all das points of history and exam, discussed case, and agree with decision making with Dr Rosado no meaningful HPI or ROS. calm. Still does not seem to be able to swallow. Mental status still seems to be fairly suspect. nursing notes no new problems vitals noted, nad breathing unlabored, no pallor or icterus. resting in bed. focal neuro deficits EtOH withdrawal, delirium tremens -heartburn grave concerns that he has a degree of chronic alcoholic encephalopathy. Thiamine for Warnicke Korsakoff protocol. Supportive care. Dysphagia -NG tube for now, ongoing speech therapy eval and treat, if my concerns above are founded, he may have a long-standing inability to safely swallow. hip fx - now s/p repair, PT/OT eval and treat, will need some form of rehab DVT proph - lovenox Subjective Aaron Chang remains very confused, telling me he has leg pain but still unaware of what was done to him despite multiple explanations. He does not have any other complaints at this time. We discussed his swallow study, but on teach back he was unable to tell me anything about. He tells me he has had trouble swallowing for years. Review of Systems Review of Systems: Review of Systems as above, otherwise unobtainable due to patient confusion Physical Exam Constitutional: well developed, well nourished and comfortable; no acute distress Eyes: PERRL, conjunctivae normal, anicteric sclerae Respiratory: normal respiratory effort, lungs clear to auscultation Cardiovascular: Rate/Rhythm: regular rate and regular rhythm Heart Sounds: no click, no gallop, no murmur and no cardiac rub Gastrointestinal (Abdomen): normal bowel sounds, soft, nontender, no hepatosplenomegaly Psychiatric: Orientation: alert Results & Data Vital Signs (Past 12 Hours) Vital Signs Temp Pulse Pulse Resp BP Pulse Ox 11/30/18 06:53 36.9 C 100 H 22 146/83 H 94 11/29/18 23:07 36.2 C L 92 H 14 120/75 93 Resident Activity Tracking Resident Involvement: Resident Care Provided Care Provided: Adult Hospital Medicine
[2018-11-30] MEDS: FIBERSOURCE HN 1.2 CAL 1000 ML BAG NG SCH (12:31)
--- NOTE | 2018-11-30 16:34 | XRay Report ---
KUB HISTORY: Placed NG tube COMPARISON: None. FINDINGS: The bowel gas pattern is unremarkable. There are no dilated loops of small bowel to suggest an obstruction. Old, healed left-sided rib fractures. Nasogastric tube terminates in the distal bod y of the stomach. No pneumoperitoneum or pneumatosis. IMPRESSION: Nasogastric tube terminates in the distal body of the stomach. Electronically signed by: Jigar Cassidy M.D. 11/30/2018 4:32 PM
[2018-11-30] MEDS: THIAMINE HCL 500 MG in SODIUM CHLORIDE 0.9% 50 ML IV SCH (21:12)
[2018-12-01] MEDS: PHENobarbital 32.4 MG TAB PO SCH (09:04)
[2018-12-01] MEDS: ENOXAPARIN INJ 40 MG/0.4 ML SYR SQ SCH (09:05)
[2018-12-01] MEDS: MULTI VIT W/MINERALS LIQUID 15 ML UDP NG SCH (09:05)
[2018-12-01] MEDS: cloNIDine HCl 0.1 MG TAB NG SCH ×2 (09:05→21:26)
[2018-12-01] MEDS: FIBERSOURCE HN 1.2 CAL 1000 ML BAG NG SCH (09:05)
[2018-12-01] MEDS: THIAMINE HCL 500 MG in SODIUM CHLORIDE 0.9% 50 ML IV SCH ×3 (09:06→20:30)
[2018-12-01] MEDS: FOLIC ACID 1 MG in SYRINGE 9.8 ML IV SCH (09:06)
[2018-12-01] MEDS: ACETAMINOPHEN 325 MG TAB PO PRN ×4 (09:46→20:45)
--- NOTE | 2018-12-01 09:51 | Family Medicine Progress Note ---
Date of Service December 01, 2018 Assessment & Plan (1) DTs (delirium tremens): Left Femoral neck fracture repaired with orif, alcohol withdrawal and DT's seem to be improving Delirium Tremens * Improved, DC'd Phenobarbitol and zyprexa * out of restraints Aspiration * Videofluoroscopy showing hernan aspiration * Will keep NPO, perhaps with improved cognitive status we may see some improvement in swallow mechanics. * Speech continuing to follow Mental Status * Baseline mental status unknown but continuing to be somewhat confused and confabulating though much more alert * May have some Wernicke's encephalopathy from chronic alcoholism. * Started patients on IV thiamine 500mg TID and saw some improvement in mental status. Unsure if secondary to thiamine or patient just improving from his delirium * will continue recommended IV thiamine for Wernicke's for 48 hours or until no further improvement Left Femoral neck fracture * Initially presented complaining of left lower extremity pain and difficult weightbearing * MRI confirmed left femoral neck fracture * ORIF by orthopedic surgery * Pain well controlled today, tells me he is walking without difficulty F/E/N: NG tube DVT PPx: Lovenox Dispo: Med Surg Supervising Physician Co-Signing Physician Notes I personally examined the patient and verified all das points of history and exam, discussed case, and agree with decision making with Dr Rosado Mental status much improved. He is able to hold a conversation and is aware of his situation and circumstances. He notes overall his hip feels relatively well, but he is quite weak and will need to do rehab. He would like to eat, but after extensive discussions about his current swallowing dysfunction, he expresses good understanding and notes that until it is clear he is able to swallow better he would prefer a feeding tube again because even though it is uncomfortable it will give him nutrients. vitals noted, nad, no pallor or icterus. resting in bed. focal neuro deficits. While we are at the bedside, nursing gives him to small bites of applesauce, encouraging him to do a chin tuck maneuver when he swallows. Listening to his lungs beforehand everything was clear without rales rhonchi or wheezes. After even just the 2 bites of applesauce while extremely faint, there were slightly snoring sounding rhonchi right lung. After just the 2 bites, his voice also sounded thicker, and after a few minutes of conversation he started to have a cough. Fortunately showed 0 respiratory distress. EtOH withdrawal, delirium tremens -heartburn grave concerns that he has a degree of chronic alcoholic encephalopathy. Thiamine for Wernicke Korsakoff by protocol. This seems to be improving. Supportive care. Dysphagia -NG tube for now, ongoing speech therapy eval and treat, he at least did express understanding about his situation. hip fx - now s/p repair, PT/OT eval and treat, anticipate rehab once the swallowing situation is more clearly delineated DVT proph - lovenox Subjective Aaron Chang is much more clear today. He was able to speak far more clearly and tells me he has a long history of choking and coughing every time he eats. He also describes that he has a history of esophageal narrowing which causes him to vomit fairly often. Review of Systems Constitutional: no fever, no chills and no sweats Respiratory: no cough and no dyspnea Cardiovascular: no chest pain, no dyspnea and no orthopnea Musculoskeletal: Some mild bilateral hip pain, but left side is far less painful than yesterday. Physical Exam Constitutional: no acute distress Respiratory: normal respiratory effort; no respiratory distress and no cough Auscultation: no crackles, no rales, no rhonchi, no wheezes and no pleural rub Cardiovascular: RRR, no murmur, no edema Gastrointestinal (Abdomen): normal bowel sounds, soft, nontender, no hepatosp lenomegaly Psychiatric: Orientation: alert and oriented x 3 Cognition: + recent memory not intact Insight: + poor insight Results & Data Vital Signs (Past 12 Hours) Vital Signs Temp Pulse Resp BP BP Pulse Ox 12/01/18 08:37 36.8 C 85 16 152/94 H 99 12/01/18 04:00 36.4 C L 87 14 112/61 96 12/01/18 00:08 36.8 C 82 20 137/85 97 Resident Activity Tracking Resident Involvement: Resident Care Provided Care Provided: Adult Hospital Medicine
--- NOTE | 2018-12-01 18:27 | XRay Report ---
UYEN CLINICAL HISTORY: coresafe placement COMPARISON STUDY: [facility] November 30, 2018. FINDINGS: Tip of feeding tube projects over the gastric fundus or proximal body of the stomach. The b owel gas pattern is normal. Postoperative findings within both proximal femurs are partially imaged. There is a moderate amount of stool within the colon. IMPRESSION: Tip of feeding tube projects over the gastric fundus/proximal body of the stomach. Electronically signed by: Kalin Roberts M.D. 12/01/2018 6:26 PM
--- NOTE | 2018-12-01 20:00 | XRay Report ---
[facility]EN CLINICAL HISTORY: check placement for coresafe COMPARISON STUDY: UYEN December 01, 2018 at 6:10 PM. FINDINGS: The tip of the feeding tube projects over the proximal body of the stomach. The bowel gas p attern is normal. Postoperative findings within the femurs are partially imaged. IMPRESSION: Tip of feeding tube projects over the proximal body of the stomach. Electronically signed by: Kalin Roberts M.D. 12/01/2018 7:59 PM
[2018-12-02] MEDS: cloNIDine HCl 0.1 MG TAB NG SCH ×2 (09:02→20:42)
[2018-12-02] MEDS: MULTI VIT W/MINERALS LIQUID 15 ML UDP NG SCH (09:02)
[2018-12-02] MEDS: THIAMINE HCL 500 MG in SODIUM CHLORIDE 0.9% 50 ML IV SCH ×3 (09:03→20:42)
[2018-12-02] MEDS: FOLIC ACID 1 MG in SYRINGE 9.8 ML IV SCH (09:03)
[2018-12-02] MEDS: ENOXAPARIN INJ 40 MG/0.4 ML SYR SQ SCH (09:03)
--- NOTE | 2018-12-02 09:36 | Family Medicine Progress Note ---
Date of Service December 02, 2018 Assessment & Plan (1) DTs (delirium tremens): Left Femoral neck fracture repaired with orif, alcohol withdrawal and DT's seem to be improving Delirium Tremens * Improved, DC'd Phenobarbitol and zyprexa * out of restraints Aspiration * Videofluoroscopy showing hernan aspiration * patient pulled NG tube out yesterday. Attempted a bedside trial of applesauce, but unfortunately patient appeared to aspirate again. Replaced feeding tube per patient's wishes. * Patient will remain NPO until speech can evaluate patient on Monday. Mental Status * Baseline mental status unknown but continuing to improve even from yesterdays marked improvement * May have some Wernicke's encephalopathy from chronic alcoholism. * on IV thiamine 500mg TID and saw some improvement in mental status. Unsure if secondary to thiamine or patient just improving from his delirium but will continue until improvements cease. Left Femoral neck fracture * Initially presented complaining of left lower extremity pain and difficult weightbearing * MRI confirmed left femoral neck fracture * ORIF by orthopedic surgery * Pain well controlled today, tells me he is walking without difficulty F/E/N: NG tube DVT PPx: Lovenox Dispo: Med Surg Supervising Physician Co-Signing Physician Notes I personally examined the patient and verified all das points of history and exam, discussed case, and agree with decision making with Dr Rosado Frustrated about feeding tube. He seems to have significant difficulty remembering exactly what we have been talking yesterday and today. He questions our assessment of his dysphasia noting that at home he was able to eat without difficulty. I try to discuss with him that we are talking about a situation that appears to be right now. After extensive and stepwise linear discussions, he starts to express understanding, but this is very similar to our discussion yesterday, and in talking with Dr. Rosado, his discussion earlier today. vitals noted, nad, no pallor or icterus. resting in bed. focal neuro deficits. No skin breakdown from NG tube, although his nose is running a little bit. No pallor or icterus. EtOH withdrawal, delirium tremens -[place] concerns that he has a degree of chronic alcoholic encephalopathy. Thiamine for Wernicke Korsakoff by protocol. His mental status is definitely better than it was 2 days ago, it is not clear if it has plateaued today. Continue thiamine for now. Dysphagia -NG tube for now, ongoing speech therapy eval and treat, extensive discussions and re-discussions. My concern would be that his encephalopathy above, whether acute from still resolving alcohol withdrawal delirium, or chronic related to a chronic alcoholic encephalopathy, seems to preclude his ability to remember what we are talking about. After extensive discussions he seems to understand his difficult conundrum, but then on reentering the room later it is quite clear he is back to baseline. It is hard to tell if this is denial or forgetfulness. I typed up a summary of our discussions that he will have it in front of him to hopefully help him stay aware of why he has NG tube in. hip fx - now s/p repair, PT/OT eval and treat, anticipate rehab once the swallowing situation is more clearly delineated DVT proph - lovenox Subjective Aaron Chang is very perturbed that his bedside swallowing evaluation yesterday did not go well. He feels he does not need the NG tube and is demanding to eat. Convinced the patient to wait until speech therapy can evaluate him tomorrow. No fevers, chills, chest pain, some wet couging, some rhinorrhea, no other systemic symptoms. Review of Systems Review of Systems: All systems reviewed & are unremarkable except as noted in HPI & below Physical Exam Constitutional: well developed, well nourished and comfortable; no acute distress Eyes: PERRL, conjunctivae normal, anicteric sclerae Respiratory: normal respiratory effort, lungs clear to auscultation normal respiratory effort; no respiratory distress and no cough Auscultation: no crackles, no rales, no rhonchi, no wheezes and no pleural rub Cardiovascular: RRR, no murmur, no edema Rate/Rhythm: regular rate and regular rhythm Heart Sounds: no click, no gallop, no murmur and no cardiac rub Gastrointestinal (Abdomen): normal bowel sounds, soft, nontender, no hepatosplenomegaly Psychiatric: Orientation: alert and oriented x 3 Cognition: + recent memory not intact Insight: + poor insight Patient's mental status continues to improve Results & Data Vital Signs (Past 12 Hours) Vital Signs Temp Pulse Resp BP Pulse Ox 12/02/18 07:31 37 C 88 20 125/79 95 12/01/18 22:42 37.2 C 90 16 115/75 94 Resident Activity Tracking Resident Involvement: Resident Care Provided Care Provided: Adult [facility] Medicine
[2018-12-02] MEDS: FIBERSOURCE HN 1.2 CAL 1000 ML BAG NG SCH (13:24)
[2018-12-02] MEDS: OXYCODONE HCL IR 5 MG TAB (IMMEDIATE RELEASE) PO PRN (16:28)
[2018-12-02] MEDS: ACETAMINOPHEN 325 MG TAB PO PRN (18:20)
[2018-12-03] MEDS: ACETAMINOPHEN SOL 650 MG/20.3 ML UDC PO PRN (01:32)
[2018-12-03 06:11] LABS: Hematocrit (blood only) 29.3 % (42-52); Hemoglobin 9.7 g/dL (14.0-18.0); Mean Corpuscular Hgb Conc 33.1 g/dL (32-36); Mean Corpuscular Volume 90.2 fL (80-100); Mean Platelet Volume 8.5 fL (7.4-10.4); Platelet Count 427 K/uL (130-400); RDW Coefficient of Variation 16.7 % (11.5-14.5); RDW Standard Deviation 55.5 fL (36.4-46.3); Red Blood Count 3.25 M/uL (4.7-6.1); White Blood Count 9.22 K/uL (4.8-10.8)
[2018-12-03] MEDS: ENOXAPARIN INJ 40 MG/0.4 ML SYR SQ SCH (07:38)
[2018-12-03] MEDS: FOLIC ACID 1 MG in SYRINGE 9.8 ML IV SCH (07:38)
[2018-12-03] MEDS: MULTI VIT W/MINERALS LIQUID 15 ML UDP NG SCH (07:38)
[2018-12-03] MEDS: cloNIDine HCl 0.1 MG TAB NG SCH ×2 (07:39→20:40)
[2018-12-03] MEDS: FIBERSOURCE HN 1.2 CAL 1000 ML BAG NG SCH ×2 (07:45→23:16)
[2018-12-03] MEDS: THIAMINE HCL 500 MG in SODIUM CHLORIDE 0.9% 50 ML IV SCH ×3 (09:03→20:47)
[2018-12-03] MEDS: OXYCODONE HCL IR 5 MG TAB (IMMEDIATE RELEASE) PO PRN ×3 (09:09→22:44)
--- NOTE | 2018-12-03 10:49 | Orthopedic Progress Note ---
Date of Service December 03, 2018 Assessment & Plan (1) Traumatic closed nondisplaced fracture of neck of left femur: POD 8- ORIF left femoral neck fracture May be out of bed, weight bear as tolerated left lower extremity with assistance of a walker Ice to left hip PRN pain/swelling Allowed for full ROM left hip, knee and ankle No hip precautions needed. PT/OT to start when able. Lovenox for DVT prophylaxis as per medicine Case management for discharge planning. Will continue to follow Dr. Haynes was present during the evaluation. Follow-up appointment scheduled with Dr Haynes in 2wks. If needs changed please call [phone]. Will sign off at this time, please call with questions or concerns. Subjective Patient seated on edge of bed, appears comfortable. His major complaint is that he does not need the NG tube and is demanding to eat. Convinced the patient to wait until speech therapy can evaluate him tomorrow. States that he has some slight Left quad pain but, no CP, SOB, fevers, chills, chest pain, some wet co ughing, some rhinorrhea, no other systemic symptoms. Review of Systems Review of Systems: All systems reviewed & are unremarkable except as noted in HPI & below Physical Exam Physical Exam: Left hip: Dressing removed. Wound is closed completely without drainage. Mild surrounding edema and ecchymosis. + quad atrophy. Able to ambulate down turner with walker assistance. Calf soft and supple. NV intact. Results & Data Vital Signs (Past 12 Hours) Vital Signs Temp Pulse Pulse Resp BP Pulse Ox 12/03/18 08:32 36.8 C 80 18 118/60 96 12/02/18 22:55 36.6 C 62 16 108/72 98
--- NOTE | 2018-12-03 16:49 | Family Medicine Progress Note ---
Date of Service December 03, 2018 Assessment & Plan (1) DTs (delirium tremens): Aaron is a 53-year-old male who presented with left lower extremity pain and difficulty weightbearing 2/2 left femoral neck fracture now S/P ORIF. His hospital course was complicated by delirium tremens now improved. Left femoral neck fracture �s/P ORIF 11/25/2018 �Continues to have some left thigh pain, currently well controlled with oxycodone 5 mg p.o. every 4 hours �Surgery following. Recommend allowing full range of motion left hip, knee, and ankle. No hip precautions needed. Recommend starting PT/OT when able. �PT/OT eval tomorrow Severe alcohol use disorder; delirium tremens (resolved) �Placed on phenobarbital protocol, gradually weaned and did well �Downgraded from ICU status 11/30/2018 �Concern for Warnicke's encephalopathy, patient was started on thiamine 500 mg 3 times daily. Some data to suggest continued benefit of high-dose thiamine for 48 hours after observing Warnicke's, or until no further improvement in mental status is noted. We will continue for now and discontinue based on serial exam. �More alert, answers questions appropriately today Aspiration event with dysphagia �After eating he was noted to have wet and coarse breath sounds on clinical exam �Fluoroscopy showed hernan aspiration. Patient was kept n.p.o. and followed with hope that as his cognitive status improved his swallow mechanics would also improve. �Speech saw today, recommended second fluoroscopy �Patient reports a history of esophageal stretching for stricture. This could potentially contribute to his dysphagia, although the fluoroscopy noted upper esophageal dysfunction which may be a result of chronic neurologic damage in the setting of severe alcohol abuse. He is very upset at being kept n.p.o., had a hernan discussion that he has high risk for aspiration and that we could not safely allow him to eat at this time. We will follow-up with fluoroscopy. We will also attempt to obtain records on past esophageal procedures from the [facility] system. �If he is unable to swallow he may benefit from PEG placement Nutrition: Enteral nutrition feeding via NGT DVT Prophylaxis: Lovenox 40 mg daily (2) Traumatic closed nondisplaced fracture of neck of left femur: (3) Alcohol use disorder, severe, dependence: (4) Adult failure to thrive: Supervising Physician Co-Signing Physician Notes I personally examined the patient and verified all das points of history and exam, discussed case, and agree with decision making with the resident. He has no physical complaints today but he is quite upset that he cannot eat. The speech therapist had called me this morning with recommendation of repeat video swallow. The patient notes that he really denies any problems swallowing prior to his hospitalization; he does admit to at times choking when he is eating but to his credit if he was aspirating it was not to the point where he required intervention. Regardless, postoperatively it seems as if he is having quite a bit of difficulty with swallowing. The patient does tell us that he has had esophageal dilatation several times before for an esophageal stricture; will review records to see if this is in fact the case and when it was last done, and consider GI consultation should the patient provide a history be accurate. Check a conference of metabolic profile with magnesium and phosphorus today. His hemoglobin is low but stable; CBC daily. He has a mild thrombocytosis today which we will also follow. Subjective Aaron reports he is very hungry today. He expresses extreme displeasure and not being able to eat. He notes his left thigh is a little bit achy, but that his pain is well controlled with his pain medication. Reports he does not understand why he cannot be careful and eat, and notes he does not feel like he ever had problems swallowing before now. Denies dyspnea, cough today. He does not feel tremulous at time of visit. Review of Systems Review of Systems: Constitutional: Denies fever, chills, malaise Eyes: Denies vision change ENT: Denies sore throat, but notes the NG is irritating. Endorses hearing loss, chronic Cardiovascular: Denies Chest pain, chest pressure, palpitations, extremity swelling Respiratory: Denies shortness of breath, cough, sputum production, difficulty breathing Gastrointestinal: Endorses hunger, and abdominal pain due to hunger. Denies nausea, vomiting, constipation, diarrhea Genitourinary: Denies pain with urination Musculoskeletal: Denies weakness, muscle aches in his left thigh. Otherwise denies pain, joint aches Integumentary:Denies new rash, lesions, bruising Neurological: Denies headache, numbness, tingling, focal weakness. Denies feeling tremulous today. Physical Exam Physical Exam: General: A&Ox3. NAD. Hard of hearing. Cooperative, but upset at being unable to eat. HEENT: Atraumatic, normocephalic. Pulm: Moderate air movement, CTAB A&P. -wheezes, -rales, -rhonchi. Symmetrical chest rise. No increase work of breathing. No respiratory distress. Cardiac: RRR, -mrg. Radial pulses intact and symmetrical. Abdominal: Nontender, nondistended, soft. BS present. Results & Data Vital Signs (Past 12 Hours) Vital Signs Temp Pulse Resp BP Pulse Ox 12/02/18 22:55 36.6 C 62 16 108/72 98 Resident Activity Tracking Resident Involvement: Resident Care Provided Care Provided: Adult Hospital Medicine
[2018-12-03 17:54] LABS: Albumin Level 2.9 gm/dl (3.4-5.0); BUN Creatinine Ratio 23.9 (10-20); Calcium 8.7 mg/dl (8.5-10.1); Creatinine Clr Calc Pharmacy 134.5 ml/min; Magnesium 1.8 mg/dl (1.8-2.4)
[2018-12-03 17:57] LABS: Albumin Globulin Ratio 0.7 (0.9-2); Bilirubin,Total 0.5 mg/dl (0.2-1); Globulin 4.1 gm/dl (2.5-4.0); Phosphorus 4.2 mg/dl (2.5-4.9)
[2018-12-04] MEDS: OXYCODONE HCL IR 5 MG TAB (IMMEDIATE RELEASE) PO PRN ×4 (05:11→20:04)
[2018-12-04 07:28] LABS: BUN Creatinine Ratio 25.6 (10-20); Calcium 8.9 mg/dl (8.5-10.1); Creatinine Clr Calc Pharmacy 146.5 ml/min; Est GFR (African American) 143.6; Est GFR (Non-African American) 123.9; Potassium 4.2 mmol/L (3.5-5.1)
[2018-12-04] MEDS: MULTI VIT W/MINERALS LIQUID 15 ML UDP NG SCH (10:31)
[2018-12-04] MEDS: cloNIDine HCl 0.1 MG TAB NG SCH ×2 (10:31→20:05)
[2018-12-04] MEDS: FOLIC ACID 1 MG in SYRINGE 9.8 ML IV SCH (10:32)
[2018-12-04] MEDS: ENOXAPARIN INJ 40 MG/0.4 ML SYR SQ SCH (10:32)
[2018-12-04] MEDS: THIAMINE HCL 500 MG in SODIUM CHLORIDE 0.9% 50 ML IV SCH ×3 (10:35→20:08)
--- NOTE | 2018-12-04 13:51 | Fluoroscopy Report ---
FL video swallow CLINICAL HISTORY: 53 years-old Male with r/o aspiration. Acute dysphasia with clinical concern for a spiration TECHNIQUE: Video fluoroscopic evaluation of swallowing was performed in the AP and lateral projection s by the speech pathology staff. The patient is fed nectar-thick and thin liquid barium, a barium coa chidi wafer, and barium pudding. FLUOROSCOPY TIME: 4.4 minutes. COMPARISON STUDY: Video swallow study 11/29/2018. FINDINGS: Penetration without aspiration noted with thin liquid barium. Esophageal dysmotility noted with pudding consistency. No definite aspiration identified. Mild residual within the vallecula and p iriform sinuses noted throughout the study. IMPRESSION: 1. No definite aspiration identified. 2. Please see the speech pathologist report for detailed findings and recommendations. Electronically signed by: Mark Hernandez M.D. 12/04/2018 1:49 PM
--- NOTE | 2018-12-04 16:40 | Family Medicine Progress Note ---
Date of Service December 04, 2018 Assessment & Plan (1) DTs (delirium tremens): Aaron is a 53-year-old male who presented with left lower extremity pain and difficulty weightbearing 2/2 left femoral neck fracture now S/P ORIF. His hospital course was complicated by delirium tremens now improved. Left femoral neck fracture �s/P ORIF 11/25/2018 �Continues to have some left thigh pain, currently well controlled with oxycodone 5-10 mg p.o. every 4 hours �Surgery following. Recommend allowing full range of motion left hip, knee, and ankle. No hip precautions needed. - PT/OT today. Was able to ambulate ~65' with a slow unsteady gait. 6 Clicks score 17. Recommend SNF on discharge and daily PT while admitted. Severe alcohol use disorder; delirium tremens (resolved) �Placed on phenobarbital protocol, gradually weaned and did well �Downgraded from ICU status 11/30/2018 �Concern for Warnicke's encephalopathy, patient was started on thiamine 500 mg 3 times daily. Some data to suggest continued benefit of high-dose thiamine for 48 hours after observing Warnicke's, or until no further improvement in mental status is noted. Mental status improvements appear to have leveled off, with d/c thiamine �More alert, answers questions appropriately today Aspiration event with dysphagia �After eating he was noted to have wet and coarse breath sounds on clinical exam � Last fluoroscopy showed hernan aspiration. Patient was kept n.p.o. and followed with hope that as his cognitive status improved his swallow mechanics would also improve. Repeat fluoroscopy today showed mild oral-pharyngeal dysphagia and esophgeal dysfunction. TENTERING MACHINE OFF BEARER recommended SLIPPERY diet, aspiration precaution. Discussed with pt by TENTERING MACHINE OFF BEARER. �Patient reports a history of esophageal stretching for stricture. This could potentially contribute to his dysphagia, no records were found in the [facility] system. His diet was advanced today as noted above, he may benefit from outpatient evaluation of his airway and possible stricture development. If his ability to protect his airway deteriorates and/or he continues to aspirate would benefit from PEG in the future. - NG coresafe removed today DVT Prophylaxis: Lovenox 40 mg daily Diet: SLIPPERY as noted above Dispo: Pending placement, will need rehab 2/2 hip ORIF. Placement difficult as he has been discharged from multiple facilities in the area in the setting of EtoH abuse. Supervising Physician Co-Signing Physician Notes I personally examined the patient and verified all das points of history and exam, discussed case, and agree with decision making with the resident. He was quite pleased today upon learning he could resume a diet after passing his video swallow. We still reviewed some general/conservative measures to prevent aspiration. Traumatic closed non-displaced fracture of the left femoral neck, postop day #9, ORIF left femoral neck fracture Complicated by alcohol withdrawal and dysphagia, now resolved Physical therapy. He would be best served with inpatient rehabilitation although placement has been difficult. Case management continues efforts. Dysphagia Past video swallow today Resume oral diet and monitor Anemia and thrombocytosis Suspect postoperative and reactive, respectively CBC in AM Hyponatremia Stable Monitor BMP Subjective Aaron reports he is extremely hungry today. Expresses great frustration that he still cannot eat. He has not had his fluoroscopy swallow study yet, but was told it would be sometimes late in the morning early afternoon. Otherwise he reports he feels well. Denies shortness of breath. Denies chest pain. Denies tremors. No other questions or concerns Review of Systems Review of Systems: Constitutional: Denies fever, chills, malaise Eyes: Denies vision change ENT: Denies sore throat. Endorses hearing loss, chronic Cardiovascular: Denies Chest pain, chest pressure, palpitations, extremity swelling Respiratory: Denies shortness of breath, cough, sputum production, difficulty breathing Gastrointestinal: Endorses hunger. Denies nausea, vomiting, constipation, diarrhea Genitourinary: Denies pain with urination Musculoskeletal: Denies weakness, muscle aches in his left thigh. Otherwise denies pain, joint aches Integumentary:Denies new rash, lesions, bruising Neurological: Denies headache, numbness, tingling, focal weakness. Denies feel ing tremulous today. Physical Exam Physical Exam: General: A&Ox3. NAD. Hard of hearing. Cooperative, but upset at being unable to eat. HEENT: Atraumatic, normocephalic. Pulm: Moderate air movement, CTAB A&P. -wheezes, -rales, -rhonchi. Symmetrical chest rise. No increase work of breathing. No respiratory distress. Cardiac: RRR, -mrg. Radial pulses intact and symmetrical. Abdominal: Nontender, nondistended, soft. BS present. Extremity: Left hip surgical dressing in place, C/D/I. Results & Data Vital Signs (Past 12 Hours) Vital Signs Temp Pulse Resp BP Pulse Ox 12/03/18 22:58 36.9 C 73 18 136/87 96 Resident Activity Tracking Resident Involvement: Resident Care Provided Care Provided: Adult Hospital Medicine
[2018-12-04] MEDS: ACETAMINOPHEN SOL 650 MG/20.3 ML UDC PO PRN (22:27)
[2018-12-05] MEDS: OXYCODONE HCL IR 5 MG TAB (IMMEDIATE RELEASE) PO PRN (08:20)
[2018-12-05] MEDS: cloNIDine HCl 0.1 MG TAB NG SCH ×2 (08:20→20:46)
[2018-12-05] MEDS: MULTI VIT W/MINERALS LIQUID 15 ML UDP NG SCH (08:21)
[2018-12-05] MEDS: ENOXAPARIN INJ 40 MG/0.4 ML SYR SQ SCH (08:22)
[2018-12-05 08:25] LABS: Basophils # (auto) 0.07 K/uL (0-0.2); Basophils % (auto) 0.7 %; Eosinophils # (auto) 0.32 K/uL (0-0.5); Hematocrit (blood only) 33.3 % (42-52); Hemoglobin 11.1 g/dL (14.0-18.0); Immature Granulocytes # (auto) 0.12 K/uL (0.00-0.02); Immature Granulocytes % (auto) 1.1 %; Lymphocytes # (auto) 2.55 K/uL (1.2-3.4); Mean Corpuscular Hgb Conc 33.3 g/dL (32-36); Mean Corpuscular Volume 88.6 fL (80-100); Mean Platelet Volume 9.7 fL (7.4-10.4); Monocytes # (auto) 1.41 K/uL (0.11-0.59); Monocytes % (auto) 13.3 %; Neutrophils # (auto) 6.15 K/uL (1.4-6.5); Neutrophils % (auto) 57.9 %; Platelet Count 283 K/uL (130-400); RDW Coefficient of Variation 16.4 % (11.5-14.5); RDW Standard Deviation 52.8 fL (36.4-46.3); Red Blood Count 3.76 M/uL (4.7-6.1); White Blood Count 10.62 K/uL (4.8-10.8)
--- NOTE | 2018-12-05 09:44 | XRay Report ---
XR chest 1V portable CLINICAL HISTORY: cough, ?aspiration dyspnea COMPARISON STUDY: 08/26/2018 FINDINGS: Platelike atelectasis left base. Lungs otherwise appear clear. Several old healed left-side d rib fractures. No significant cardiac enlargement. IMPRESSION: Platelike atelectasis left base. Chronic change. No acute process. The above report was generated using voice recognition software. It may contain grammatical, syntax or spelling errors. Electronically signed by: Keven Vann M.D. 12/05/2018 9:43 AM
[2018-12-05] MEDS ORDERED: MoRPHine SULFATE 2 MG/ML CARP IV STA (11:39)
--- NOTE | 2018-12-05 12:09 | Gastrointestinal Consultation ---
Date of Consultation December 05, 2018 Assessment & Plan (1) Dysphagia: 53 year old male admitted w/ left hip pain s/p ORIF, admission complicated by ETOH withdrawal, transferred to the ICU w/ DT. He was clinically improving, diet advanced transferred to the third floor. This AM he noted abrupt onset chest pain after completion of breakfast. He did have episodes of emesis after which did not relieve symptoms. No coffee ground emesis or hematemesis. He is tolerating his secretions and denies any sensation of esophageal foreign body. He has known eso stenosis, lost to follow up and not compliant with OP therapy. Rule out cardiac source of symptoms, obvious concern for esophageal etiology including food bolus. - Chest XR negative - Stat EKG - Keep NPO for now - Aspiration precautions, Remain upright - Will re-evaluate after EKG is completed - EGD timing to be determined Thank you for allowing us to participate in the care of this patient. Please call with any acute changes, questions or concerns. Please see addendum below with additional recommendation from my supervising physician. Supervising Physician Co-Signing Physician Notes I performed a history and physical examination of the patient, including specifically on physical exam - soft, nontender abdomen. I have discussed the patient's management with Ayni. Please refer to the nurse practitioner's note for the documented findings and plan of care. Post prandial retrosternal pain with Hx of esophageal stricture, ? food impaction. Plan for EGD today. History of Present Illness Reason for Consultation: ACUTE DYSPHAGIA Requesting Physician: Addie Attending Physician: Sim Real, DO History of Present Illness 53 year old male admitted w/ left hip pain postop ORIF transferred to the ICU w/ ETOH withdrawal, DT - GI asked to evaluate for dysphagia. Has history of esophageal stricture & stenosis and has had EGD evaluation w/ dilation x 4 last fall. Biopsies w/ reflux esophagitis, emilee esophagitis and lymphocytic esophagitis with appropriate treatment prescribed, but pt never took his medications. He suggests overall his symptoms improved until about 48 hours ago when he noted difficulty swallowing. At that time he had video swallow, failed w/ concern of aspiration. This was repeat yesterday and was unremarkable. His diet was advanced. He tolerated dinner. This AM had regular breakfast. All went down okay up until he ate chris. Notes he swallowed the chris just fine. Did not feel any sensation of food sticking but about 1-2 minutes after he had persistent pain. This is epigastric/left chest in nature. Constant. Pressure and sharp. Rates 9/10. Requesting analgesia. He notes he has had nausea, vomiting. Emesis was undigested food, mucous. No black or bloody emesis. He is awake, alert and oriented x 3 w/ stable vitals. No leukocytosis, H&H stable, normal PLT count. EKG yet to be obtained IV team at bedside to obtain access Chest XR: Platelike atelectasis left base. Lungs otherwise appear clear. Several old healed left-sided rib fractures. No significant cardiac enlargement. ETOH: last drink prior to admission AC: SQ Lovenox EGD 2017: Esophageal 1 long segment vs 2 stenosis. Dilated.-Normal stomach.- Normal examined duodenum.-No specimens collected. EGD 2017: Two benign-appearing esophageal stenoses. Dilated. Biopsied.-Normal stomach.-Normal duodenal bulb and 2nd part of the duodenum. EGD 2017: Benign-appearing esophageal stenosis. Dilated.-Esophageal mucosal changes suspicious for eosinophilic esophagitis. Biopsied.-Normal stomach.- Normal examined duodenum. EGD 2017: Benign-appearing esophageal stenosis.-No specimens collected Allergies Allergy/AdvReac Type Severity Reaction Status Date / Time Penicillins AdvReac Mild TIRED Verified 10/28/18 22:51 Home Medications Home Medications Medication Instructions Recorded Confirmed Type No Known Home Medications 10/28/18 11/23/18 History Patient History Medical History Chronic hyponatremia History of esophageal stricture History of esophageal dilatation Hx of fracture of hip Hypertension (Chronic) Alcoholism (Chronic) Ambulatory dysfunction (Chronic) Dysphagia (Chronic) "h/o esophageal stricture s/p dilation in past" Frequent falls (Chronic) Tobacco abuse Surgical History History of esophagogastroduodenoscopy (EGD) History of hip surgery s/p fall and fx Family History Other Cancer Hypertension Social History Preferred Language: Nepali Communication Ability: Effective Visual Impairment: No Limitations Hearing Ability: Hard of Hearing Insulation Board Coater Operator Required: No Beliefs That Will Affect Care: None marital status: Single Current Living Situation: Alone and Homeless Feels Safe at Home: Yes Safety Concerns: Feels Safe At This Time Smoking Status: Former smoker Hx Alcohol Use: Yes Alcohol type: beer Alcohol Intake Frequency Comment: 7-10 beers a day, uncertain which kind of beer Hx Substance Use: No Review of Systems Constitutional: no fever, no chills and no fatigue Respiratory: no cough, no dyspnea and no pain on inspiration Cardiovascular: + chest pain; no dyspnea on exertion, no palpitations and no syncope Gastrointestinal: + abdominal pain, + nausea, + vomiting and + dysphagia; no belching, no early satiety, no heartburn, no coffee ground emesis, no change in bowel habits, no diarrhea/loose stools and no blood in stools Physical Exam Constitutional: + ill appearing and + thin Neck: trachea midline Respiratory: normal respiratory effort Auscultation: + diminished lung sounds; no crackles and no wheezes Cardiovascular: Rate/Rhythm: regular rate and regular rhythm Gastrointestinal (Abdomen): Inspection/Auscultation: normal bowel sounds Percussion/Palpation: abdomen soft; abdomen nontender, no guarding and abdomen not rigid Skin: no rashes, warm and dry Psychiatric: Orientation: alert and oriented x 3 Results & Data Vital Signs (Past 12 Hours) Vital Signs Temp Pulse Pulse Resp BP Pulse Ox 12/05/18 11:24 37.1 C 81 13 142/83 H 97 12/05/18 07:49 36.4 C L 75 13 152/78 H 99
--- NOTE | 2018-12-05 12:46 | XRay Report ---
XR KUB/Abdomen 1 view CLINICAL HISTORY: concern esophageal obstruction obstruction COMPARISON STUDY: 12/01/2018 FINDINGS: Interval removal of the feeding tube. Bowel pattern is nonobstructive. There is contrast within the colon. No significant colonic or small bowel distention. Graft bilateral hip pinning placements are again noted. IMPRESSION: Nonobstructive bowel pattern. Contrast is identified throughout the colon. This appears to be from the patient's prior video swallow examination The above report was generated using voice recognition software. It may contain grammatical, syntax or spelling errors. Electronically signed by: Keven Vann M.D. 12/05/2018 12:45 PM
[2018-12-05] MEDS ORDERED: NITROGLYCERIN SL 0.4 MG/TAB TAB SL STA (13:47)
[2018-12-05] MEDS ORDERED: NITROGLYCERIN 2% OINTMENT 30GM TUBE EXT STA (13:53)
[2018-12-05] MEDS: FOLIC ACID 1 MG TAB PO SCH (14:11)
--- NOTE | 2018-12-05 14:55 | Anesthesiology Consultation ---
Date of Service December 05, 2018 Assessment & Plan (1) Encounter for pre-operative examination: Chart Review Chart Review: Acceptable Risk for Surgery and Patient NOT seen in Pre Admission Testing Consults Requested none Patient has been evaluated by powder room attendant due to his CP and T wave inversion on EKG. Per powder room attendant, symptoms most likely from his esophagel stricture instead of coronary in nature. Per powder room attendant "He did have 1 similar EKG in February of 2017. T-wave inversions of this nature are less specific than other findings for acute ischemia, and I think given the remaining objective and subjective information cardiac etiologies for his symptoms is very unlikely. I think the plan is to proceed with an EGD and I do not believe any additional cardiac precautions or tests are required prior to that procedure." Troponin was negative ASA [id number] Proposed Anesthesia Anesthesia Type: General Risk / Benefits Reviewed With: PT / POA / Parent / Guardian, Accepts Plan and Informed Consent Obtained History Surgery Operation Date: 11/25/18 12:00 Proposed Procedures p ORIF Dynamic Hip Screw(Left) - Romeo Haynes MD Operation Date: 12/05/18 13:30 Proposed Procedures p Esophagogastroduodenoscopy for Food Bolus - Mikki Flores MD Height/Weight Height: 5 ft 11 in Weight: 60.1 kg Allergies Allergy/AdvReac Type Severity Reaction Status Date / Time Penicillins AdvReac Mild TIRED Verified 10/28/18 22:51 Medications Home Medications Medication Instructions Recorded Confirmed Last Taken No Known Home Medications 10/28/18 11/23/18 Unknown Active Medications Generic Name Dose Route Start Last Admin Trade Name Freq PRN Reason Stop Dose Admin Acetaminophen 650 mg 12/03/18 01:23 12/04/18 22:27 Tylenol PO 01/02/19 01:22 650 mg Q4H PRN Administration pain/fever Clonidine HCl 0.1 mg 11/29/18 21:30 12/05/18 08:20 Catapres NG 12/29/18 21:29 0.1 mg BID YOMAIRA Administration Enoxaparin Sodium 40 mg 11/24/18 09:00 12/05/18 08:22 Lovenox SQ 12/24/18 08:59 40 mg QAM YOMAIRA Administration Enteral Nutritional Formula 1,000 ml 11/27/18 14:30 12/03/18 23:16 Fibersource Hn 1.2 Javid Liquid NG 12/27/18 14:29 1,000 ml UD YOMAIRA Administration Protocol Folic Acid 1 mg 12/05/18 09:00 12/05/18 14:11 Folvite PO 01/04/19 08:59 Not Given QAM [facility] Multivitamins/Minerals 15 ml 11/28/18 12:00 12/05/18 08:21 Cerovite Liquid NG 12/28/18 11:59 15 ml QAM YOMAIRA Administration Ondansetron HCl 4 mg 11/25/18 17:17 11/25/18 19:17 Zofran IV 12/25/18 17:16 4 mg Q6H PRN Administration Nausea And Vomiting Oxycodone HCl 5 mg 11/25/18 17:17 12/04/18 10:30 Roxicodone Immediate Rel PO 12/09/18 17:16 5 mg Q4H PRN Administration Moderate Pain (Scale 4,5,6) Oxycodone HCl 10 mg 11/25/18 17:17 12/05/18 08:20 Roxicodone Immediate Rel PO 12/09/18 17:16 10 mg Q4H PRN Administration Severe Pain (Scale 7,8,9,10) NPO Date Last Intake of Fluids: 12/05/18 Time Last Intake of Fluids: 09:27 Last Intake of Fluids Comment: sips with AM medications Date Last Intake of Solids: 12/05/18 Time Last Intake of Solids: 09:29 Past Medical History Medical History Chronic hyponatremia History of esophageal stricture History of esophageal dilatation Hx of fracture of hip Hypertension (Chronic) Alcoholism (Chronic) Ambulatory dysfunction (Chronic) Dysphagia (Chronic) "h/o esophageal stricture s/p dilation in past" Frequent falls (Chronic) Tobacco abuse Exercise / Class Metabolic Activity III < 4 Walking/Shop/Light housework Past Family History Family History Other Cancer Hypertension Past Surgical History Surgical History History of esophagogastroduodenoscopy (EGD) History of hip surgery s/p fall and fx Past Anesthesia History No Hx of Anesthesia Complications and No Family Hx of Anesthesia Complications History of PONV No Hx of PONV and No Hx of Motion Sickness Social History Smoking Status: Former smoker Hx Alcohol Use: Yes Alcohol type: beer alcohol intake frequency: 3 or more drinks per day Hx Substance Use: No Physical Exam Vital Signs Last Vital Signs Temp 36.8 C 12/05/18 16:29 Pulse 86 12/05/18 16:29 Resp 20 12/05/18 16:29 BP 159/91 H 12/05/18 16:29 Pulse Ox 100 12/05/18 16:29 Testing Laboratory Results 12/05/18 07:45 12/04/18 06:47 11/24/18 Unknown Gram Stain - Final Joint Fluid/Space (Synovial) Aerobic and Anaerobic Culture - Final No growth Electrocardiogram Date: 12/05/18 Findings: + NSR @ (84 bpm) Minimal voltage criteria for LVH, may be normal variant T wave abnormality, consider anterior ischemia Abnormal ECG When compared with ECG of 08/18/2018, T wave inversion now evident in anterior leads Chest X-Ray Date: 12/05/18 Findings: + NAD Platelike atelectasis left base. Chronic change. No acute process Echocardiogram Date: 07/31/18 EF: 65 LV Function: normal RWMA: + none Bicuspid AV; dilated Ao root and Asc. AO. to 4.1-4.3 cm
--- NOTE | 2018-12-05 14:57 | Cardiology Consultation ---
Date of Consultation December 05, 2018 Assessment & Plan (1) Chest pain: While the patient is certainly in a demographic for coronary disease, his symptoms seem more consistent with an esophageal or gastric process. He has an extensive history of esophageal stricture in the symptoms began after an attempt to eat solid foods today. The symptoms have been unremitting in nature and occasionally more severe suggesting an element of spasm. The extended nature of the symptoms, the character of the symptoms in the absence of significant elevation in biomarkers would speak against a cardiac etiology. He does have an abnormal EKG which is changed from prior EKGs. He did have 1 similar EKG in February of 2017. T-wave inversions of this nature are less specific than other findings for acute ischemia, and I think given the remaining objective and subjective information cardiac etiologies for his symptoms is very unlikely. I think the plan is to proceed with an EGD and I do not believe any additional cardiac precautions or tests are required prior to that procedure. Present on Admission?: No (2) Aortic root dilation: Patient has had imaging of the chest in the past, most recently in 2016. At that time he was noted to have significant at ascending aortic dilation measuring 4.7 centimeters[address] This does place him at risk for aortic dissection. However, his symptoms are inconsistent with that diagnosis. This dilation should be followed over time and repeat imaging could be performed. Patient has not demonstrated good compliance with medical therapy or other recommendations to this point. (3) Abnormal EKG: There appears to have been a change in the patient's T-wave pattern since the last EKG in August of this year. This is nonspecific with certainly concerning for coronary disease. CT scan performed 2016 revealed only mild coronary calcium. Do not believe his current symptoms are related to an acute coronary syndrome based on the information noted above. Repeat EKG should be obtained in the morning for comparison purposes. History of Present Illness Reason for Consultation: Chest pain Requesting Physician: Addie Attending Physician: Sim Real, DO History of Present Illness The patient is a 53-year-old gentleman without a known history of cardiac disease who was admitted to the hospital for pain following a recent hip surgery. Patient subsequently developed acute alcohol withdrawal and has been convalescing since that time. He has an extensive history of esophageal stricture with multiple EGDs and recently was felt to be at risk for aspiration. Patient did undergo 2 video swallow studies, the most recent of which suggested the absence of aspiration. This morning he was eating breakfast when he experienced the fairly acute onset of severe epigastric and lower chest discomfort. He states that this occurred several minutes after eating some chris. The pain has been persistent since that time. The symptoms are fairly constant and severe but occasionally he will developed acute stabbing and squeezing pains in the same location which are much more severe. He feels slightly better lying on his right side. The symptoms are slightly worse with deep inspiration. Initially there was some tenderness to palpation in this location but currently there is no tenderness by his report. He did have some vomiting of frothy fluid earlier. He attempted to improve his symptoms by drinking some water but this did not help. He has been administered morphine with no relief. He did receive some nitroglycerin with some mild improvement in his symptoms. The patient states that the symptoms are very similar to episodes he has had in the past which have required EGD and removal of food material. In general the patient is very sedentary. He has had difficulty with alcohol abuse. He has suffered fractures on 2 occasions related to falls, most recent of which involved a left hip fracture. Since his fracture he has been ambulatory with a walker but admits that he had attempts to do very little activity. He does not report symptoms associated with exertion such as chest pain or shortness of breath. Allergies Allergy/AdvReac Type Severity Reaction Status Date / Time Penicillins AdvReac Mild TIRED Verified 10/28/18 22:51 Home Medications Home Medications Medication Instructions Recorded Confirmed Type No Known Home Medications 10/28/18 11/23/18 History Patient History Medical History Chronic hyponatremia History of esophageal stricture History of esophageal dilatation Hx of fracture of hip Hypertension (Chronic) Alcoholism (Chronic) Ambulatory dysfunction (Chronic) Dysphagia (Chronic) "h/o esophageal stricture s/p dilation in past" Frequent falls (Chronic) Tobacco abuse Surgical History History of esophagogastroduodenoscopy (EGD) History of hip surgery s/p fall and fx Family History Other Cancer Hypertension Social History Preferred Language: Cambodian Communication Ability: Effective Visual Impairment: No Limitations Hearing Ability: Hard of Hearing Agricultural Consultant Required: No Beliefs That Will Affect Care: None marital status: Single Current Living Situation: Alone and Homeless Feels Safe at Home: Yes Safety Concerns: Feels Safe At This Time Smoking Status: Former smoker Hx Alcohol Use: Yes Alcohol type: beer Alcohol Intake Frequency Comment: 7-10 beers a day, uncertain which kind of beer Hx Substance Use: No Review of Systems Review of Systems: All systems reviewed & are unremarkable except as noted in HPI & below Patient has had pain at his prior operative site involving the left hip. He generally restrict his diet to food which has been chopped quite finely or liquids. Physical Exam Physical Exam: The patient is alert and oriented. Mood and affect appeared appropriate, although the was and pain at times. He answered all questions appropriately. HEENT: Pupils are equal and reactive to light and accommodation. Extraocular movements are intact. The sclerae are anicteric. Neuro: Cranial nerves intact Neck: Patient's neck is supple. He has palpable carotid pulses bilaterally without bruits on auscultation. There is no evidence of jugular venous distention. The thyroid is not enlarged. Lungs: Clear to auscultation bilaterally. He has good air movement without use of accessory muscles. No rales wheezes or rhonchi. Chest: No significant tenderness to palpation in the epigastric region. Cardiac: Heart demonstrates a regular rate and rhythm. Normal S1 and S2. No murmurs on examination. Pulses: The patient has palpable radial pulses bilaterally that are equal in intensity Extremities: There was no evidence of hypoperfusion. There is no cyanosis or clubbing. There is no edema. Skin: I did not appreciate any rashes on examination today. Results & Data Vital Signs (Past 12 Hours) Vital Signs Temp Pulse Pulse Resp BP Pulse Ox 12/05/18 11:24 37.1 C 81 13 142/83 H 97 12/05/18 07:49 36.4 C L 75 13 152/78 H 99 Laboratory Results Abnormal Lab Results 12/05/18 12/05/18 07:45 13:38 WBC 10.62 RBC 3.76 L Hgb 11.1 L Hct 33.3 L MCV 88.6 MCH 29.5 MCHC 33.3 RDW Std Deviation 52.8 H RDW Coeff of Luis 16.4 H Plt Count 283 MPV 9.7 Immature Gran % (Auto) 1.1 Neut % (Auto) 57.9 Lymph % (Auto) 24.0 [place] % (Auto) 13.3 Eos % (Auto) 3.0 Baso % (Auto) 0.7 Immature Gran # (Auto) 0.12 H Neut # (Auto) 6.15 Lymph # (Auto) 2.55 [place] # (Auto) 1.41 H Eos # (Auto) 0.32 Baso # (Auto) 0.07 Troponin I 0.020 Diagnostic Findings A chest x-ray and KUB were obtained today. These are not reveal any acute findings. ECG Additional Comments: EKG demonstrated sinus rhythm with T-wave inversions from V1 to V3.
[2018-12-05] MEDS ORDERED: LABETALOL HCL IV 5 MG/ML 20ML IV PRN (16:52)
[2018-12-05] MEDS ORDERED: ATROPINE SULFATE 0.1 MG/ML 10ML SYR IV PRN (16:52)
[2018-12-05] MEDS ORDERED: fentaNYL citrate 100 MCG/2 ML VIAL IV PRN (16:52)
[2018-12-05] MEDS ORDERED: ONDANSETRON INJ 2 MG/ML 2 ML VIAL IV PRN (16:52)
[2018-12-05] MEDS ORDERED: MIDAZOLAM HCL 1 MG/ML 2ML VIAL ONE (17:12)
[2018-12-05] MEDS ORDERED: fentaNYL citrate 100 MCG/2 ML VIAL ONE (17:12)
[2018-12-05] MEDS ORDERED: LIDOCAINE HCL 2% 2 ML VIAL/AMP(20MG/ML) INFIL ONE (17:13)
[2018-12-05] MEDS ORDERED: PROPOFOL IV EMULSION 10 MG/ML 20 ML VIAL IV ONE (17:13)
--- NOTE | 2018-12-05 17:17 | Family Medicine Progress Note ---
Date of Service December 05, 2018 Assessment & Plan (1) Traumatic closed nondisplaced fracture of neck of left femur: Aaron is a 53-year-old male who presented with left lower extremity pain and difficulty weightbearing 2/2 left femoral neck fracture now S/P ORIF. His hospital course was complicated by delirium tremens now improved. Left femoral neck fracture �s/P ORIF 11/25/2018 �Surgery following. Recommend allowing full range of motion left hip, knee, and ankle. No hip precautions needed. - PT/OT yesterday, deffered today due to pain as noted below. Was able to ambulate ~65' yesterday with a slow unsteady gait. 6 Clicks score 17. Recommend SNF on discharge and daily PT while admitted. Severe alcohol use disorder; delirium tremens (resolved) �Placed on phenobarbital protocol, gradually weaned and did well �Downgraded from ICU status 11/30/2018 �Concern for Warnicke's encephalopathy, s/p tx with thiamine 500mg TID. �Alert, answers questions appropriately today Aspiration event with dysphagia -Aaron had been n.p.o. out of concern for the inability to swallow safely. His first fluoroscopy showed hernan aspiration and he was kept n.p.o. with nutrition through NGT. After repeat fluoroscopy DIRECTOR OF DEVELOPMENT AND MARKETING recommended slippery diet but noted that he had poor swallow mechanics. Following breakfast this morning he developed strong gastric/low chest pain. This was concerning for obstruction given his past history of esophageal stricture, EKG was also obtained. EKG showed T wave inversions discussed below, but ultimately cardiology work-up felt that this was not cardiac pain in origin. Gastroenterology was consulted. He did not show signs of obstruction on flat plate �He is scheduled for upper endoscopy for further evaluation today. -N.p.o. in setting of above Gastric/chest pain �Following breakfast he developed strong 8/10 low chest�high abdomen pain which did not improve with sublingual nitro or morphine 2 mg IV. EKG was obtained and showed T wave inversions new compared to his last EKG in August. Cardiology was consulted. Troponins were negative, it was felt that his presentation was not cardiac in origin and that he was medically safe to continue evaluation by gastroenterology as above. 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 DVT Prophylaxis: Lovenox 40 mg daily Diet: N.p.o. pending GI evaluation as above. Supervising Physician Co-Signing Physician Notes Co-Signing Physician Notes I personally examined the patient and verified all das points of history and exam, discussed case, and agree with decision making with the resident. I saw the patient several times today due to his condition and also discussed the case with both gastroenterology and tank truck mechanic. As noted above, after eating the patient had a rather sudden onset of epigastric discomfort. He described it as a tightness and a fullness in his lower epigastric area that seem to come in go in waves of pain. In reviewing outside records with gastroenterology, as noted the patient has had several prior EGD with esophageal dilatations. Given locations of his discomfort there is some concern whether this could represent a cardiac etiology. It is noted that despite the intense pain, the patient did not have any diaphoresis or shortness of breath. EKG had some nonspecific T wave changes, but a troponin was negative after several hours of this discomfort. Cardiology saw the patient in consultation this afternoon as well. Dysphagia Acute epigastric pain Concern now would be for a food bolus secondary to his now confirmed history of esophageal stricture and prior dilatation. Plan is for EGD in the OR today. Traumatic closed non-displaced fracture of the left femoral neck, postop day #9, ORIF left femoral neck fracture Complicated by alcohol withdrawal and dysphagia, now resolved Physical therapy. He would be best served with inpatient rehabilitation although placement has been difficult. Case management continues efforts. Anemia and thrombocytosis Hemoglobin is actually improved today Hyponatremia Stable BMP in AM Subjective Was seen at bedside this morning. He reports he was able to tolerate liquids last night and had some breakfast without difficulty this morning, however towards the end of his breakfast he has developed strong central high abdominal/low chest pain. He was not nauseous before this, but feels a little bit nauseous at time of visit. He denies shortness of breath, difficulty breathing, or feeling that he aspirated. He denies chest pressure or palpitations, but notes the pain feels like it is more in his high abdomen by his stomach. He is not sweaty. He reports the discomfort as an 8 out of 10. Review of Systems Review of Systems: Constitutional: Denies fever, chills, malaise Eyes: Denies vision change ENT: Denies sore throat. Endorses hearing loss, chronic Cardiovascular: Denies Chest pain, chest pressure, palpitations, extremity swelling Respiratory: Denies shortness of breath, sputum production, difficulty breathing. Endorses cough this morning after eating. Gastrointestinal: Endorses stomach pain, nausea. Genitourinary: Denies pain with urination Musculoskeletal: Denies weakness. Stomach pain as above. Does not commend on hip pain/thigh pain today. Integumentary:Denies new rash, lesions, bruising Physical Exam Physical Exam: General: A&Ox3. Appears uncomfortable. Hard of hearing. Cooperative, but expresses distress at stomach pain HEENT: Atraumatic, normocephalic. Pulm: Moderate air movement, CTAB A&P. -wheezes, -rales, -rhonchi. Symmetrical chest rise. No increase work of breathing. No respiratory distress. Cardiac: RRR, -mrg. Radial pulses intact and symmetrical. Abdominal: Tender in central epigastric region. nondistended, soft. BS present. Results & Data Vital Signs (Past 12 Hours) Vital Signs Temp Pulse Resp BP Pulse Ox 12/04/18 23:11 36.7 C 79 18 122/78 97 12/04/18 20:03 85 131/78 Resident Activity Tracking Resident Involvement: Resident Care Provided Care Provided: Adult Hospital Medicine
--- NOTE | 2018-12-05 18:03 | Operative Report ---
Post Operative Report Pre & Post Diagnosis Operation Date: 11/25/18 12:00 Pre-Op Diagnosis: INTRACTABLE LEFT HIP PAIN Post-Op Diagnosis: INTRACTABLE LEFT HIP PAIN Operation Date: 12/05/18 13:30 Pre-Op Diagnosis: Dysphagia Post-Op Diagnosis: Dysphagia Procedure Operation Date: 11/25/18 12:00 Actual Procedures p Left Open reduction Internal fixation Dynamic Hip Screw(Left) - Romeo Haynes MD Operation Date: 12/05/18 13:30 Actual Procedures p Esophagogastroduodenoscopy for Food Bolus(Not Applicable) - Mikki Flores MD Surgeon Mikki Flores MD Running Instructor Dorie Hilton PA-C Estimated Blood Loss 0 Findings See Below (Esophageal stenosis x2 dilated and treated with incisional therapy, deep esophageal tear with necrosis. No visible perforation.) Specimens None Description of Procedure EGD I attest to the content of the Intraoperative Record and any orders documented therein. Any exceptions are noted below.
--- NOTE | 2018-12-05 18:28 | Anesthesiology Progress Note ---
Date of Service December 05, 2018 Anesthesia Post Procedure Vital Signs Vital Signs: Temp Pulse Pulse Pulse Resp BP Pulse Ox 12/05/18 18:15 97 H 18 137/79 96 12/05/18 18:04 36.7 C 96 H 24 108/66 96 12/05/18 16:29 36.8 C 86 20 159/91 H 100 12/05/18 15:25 37.3 C 94 H 18 139/80 98 12/05/18 11:24 37.1 C 81 13 142/83 H 97 12/05/18 07:49 36.4 C L 75 13 152/78 H 99 12/04/18 23:11 36.7 C 79 18 122/78 97 12/04/18 20:03 85 131/78 Pain Intensity Left Hip: Pain Intensity: 10 Left Groin: Pain Intensity: 7 Left Thigh: Pain Intensity: 3 Lower Medial Chest: Pain Intensity: 9 Transfer of Care Handoff Completed per policy Notes Mental Status: alert / awake / arousable Patient Amnestic to Procedure: Yes Nausea / Vomiting: adequately controlled Pain: adequately controlled Airway Patency, RR, SpO2: stable & adequate BP & HR: stable & adequate Hydration State: stable & adequate Anesthetic Complications: no major complications apparent
--- NOTE | 2018-12-05 18:38 | GI REPORT ---
Patient Name: Aaron Chang Procedure Date: 12/05/2018 5:12 PM Date of : 1965 Admit Type: Inpatient Age: 53 Gender: Male Attending MD: Mikki Flores MD Procedure: Upper GI endoscopy Providers: Mikki Flores MD Referring MD: Sim Real Indications: Dysphagia, Eosinophilic esophagitis, Chest pain Medicines: Monitored Anesthesia Care Complications: No immediate complications. Estimated Blood Loss: Estimated blood loss: none. Procedure: Pre-Anesthesia Assessment: - Prior to the procedure, a History and Physical was performed, and patient medications and allergies were reviewed. The patient is competent. The risks and benefits of the procedure and the sedation options and risks were discussed with the patient. All questions were answered and informed consent was obtained. Patient identification and proposed procedure were verified by the physician and the nurse in the procedure room. Mental Status Examination: alert and oriented. Airway Examination: normal oropharyngeal airway and neck mobility. Respiratory Examination: clear to auscultation. CV Examination: normal. ASA Grade Assessment: III - A patient with severe systemic disease. After reviewing the risks and benefits, the patient was deemed in satisfactory condition to undergo the procedure. The anesthesia plan was to use monitored anesthesia care (MAC). Immediately prior to administration of medications, the patient was re-assessed for adequacy to receive sedatives. The heart rate, respiratory rate, oxygen saturations, blood pressure, adequacy of pulmonary ventilation, and response to care were monitored throughout the procedure. The physical status of the patient was re-assessed after the procedure. After obtaining informed consent, the endoscope was passed under direct vision. Throughout the procedure, the patient's blood pressure, pulse, and oxygen saturations were monitored continuously. The Scope was introduced through the mouth, and advanced to the second part of duodenum. The upper GI endoscopy was accomplished without difficulty. The patient tolerated the procedure well. Findings: One benign-appearing, intrinsic severe (stenosis; an endoscope cannot pass) stenosis (ring type) was found 20 cm from the incisors. This stenosis measured 5 mm (inner diameter). The stenosis was traversed after dilation and treatment with needle knife incisional therapy to cut the fibrous ring. A TTS dilator was passed through the scope. Dilation with a 12-13.5-15 mm balloon dilator was performed to 13.5 mm. A non-bleeding deep mucosal/ submucosal tear that was pre-existing (pre-procedure) related to retching and vomiting (MWT) was found in the middle third of the esophagus between 30 - 36 cm from the incisors. This was large in size. Necrotic tissue sloughed off. No visible perforation seen. One benign-appearing, intrinsic severe (stenosis; an endoscope cannot pass) stenosis was found 39 cm from the incisors. The stenosis was traversed after dilation. A TTS dilator was passed through the scope. Dilation with a 12-13.5-15 mm balloon dilator was performed to 12 mm. Mucosal changes including ringed esophagus, circumferential folds and stenosis were found in the entire esophagus. The entire examined stomach was normal. The duodenal bulb and second portion of the duodenum were normal. Impression: - Two benign-appearing severe esophageal stenosis (ring) related to EoE. Treated with incisional therapy using a needle knife. Dilated up to 12- 13.5mm. - Deep mucosal/ submucosal, 6 cm long tear (MWT) in the middle third of the esophagus. No visible perforation. - Esophageal mucosal changes secondary to eosinophilic esophagitis. - Normal stomach. - Normal duodenal bulb and second portion of the duodenum. - No specimens collected. Recommendation: - Return patient to [facility] for [facility] care. - NPO today. - Obtain CT scan of the chest with PO Gastrografin to r/o microperforation. If noted, may consider esophageal stenting. - Clear liquid diet for 3 days, then advance as tolerated to full liquid diet for 2 days then soft diet. - Use a proton pump inhibitor IV BID for 2 days. - Use Protonix (pantoprazole) 40 mg PO BID for 3 months. - Therapy for EoE with inhaled steroids after healing of the tear. - Repeat upper endoscopy in 4 weeks for retreatment. Mikki Flores MD 12/05/2018 6:38:04 PM This report has been signed electronically. Note Initiated On: 12/05/2018 5:12 PM Number of Addenda: 0 I attest to the content of the Intraoperative Record and orders documented therein, exceptions below {[id number]}
[2018-12-05] MEDS ORDERED: MoRPHine SULFATE 4 MG/ML 1 ML CARP\\VIAL IV PRN (18:55)
[2018-12-05] MEDS ORDERED: MoRPHine SULFATE 2 MG/ML CARP IV PRN (18:55)
--- NOTE | 2018-12-05 19:08 | CT Scan Report ---
CT chest wo con CLINICAL HISTORY: Recent upper endoscopy. History of deep esophageal tear. Evaluate for microperforat ion. COMPARISON STUDY: 02/15/2017 CT DOSE: 514.81 mGy.cm TECHNIQUE: CT of the thorax was performed from the thoracic inlet to the lung bases. Images are revi ewed in the axial, sagittal, and coronal planes. IV contrast was not administered for this examinatio n. Oral contrast was administered to opacify the esophagus. A dose lowering technique was utilized a dhering to the principles of ALARA. FINDINGS: Thyroid: Imaged portions of the thyroid gland are normal in appearance. Thoracic aorta: There is dilatation of the ascending thoracic aorta which measures 42 mm. Heart: The heart is normal in size and configuration, without pericardial effusion. Lungs and pleural spaces: There is respiratory motion artifact. There is no pneumothorax. There are l ower lobe dependent atelectatic changes. There is lower lobe bronchial wall thickening. There are a f ew wispy airspace opacities within the right upper lobe, likely infectious/inflammatory. Mediastinum: There is no evidence of pathologic mediastinal lymphadenopathy. There is no evidence for pneumomediastinum. There is no evidence for esophageal contrast extravasation. There is equivocal ul ceration of the posterior esophageal wall at the infra carinal level. Carol: There is no evidence for pathologic adenopathy given the limitations of a noncontrast study. Axilla: There is no evidence of pathologic axillary lymphadenopathy. Upper abdomen: Partially visualized upper abdominal viscera is within normal limits. Skeletal structures: There are no lytic or blastic osseous lesions. IMPRESSION: 1. No evidence of pneumomediastinum. No evidence of esophageal contrast extravasation. Equivocal ulce ration of the posterior esophageal wall at the level of the infracarinal esophagus 2. Minor wispy airspace opacities within the right upper lobe, likely infectious/inflammatory 3. No evidence of pathologic adenopathy 4. Dilatation of the ascending thoracic aorta which measures 42 mm Electronically signed by: Alejandro Lucas M.D. 12/05/2018 7:07 PM
[2018-12-05] MEDS: PANTOprazole 40 MG in SYRINGE 0 ML IV SCH (20:33)
[2018-12-05] MEDS ORDERED: SODIUM CHLORIDE 0.9% 1000ML 1,000 ML IV SCH (21:30)
[2018-12-06] MEDS: cloNIDine HCL 0.1 MG/24 HR TRANSDERM SYS TD SCH (02:31)
[2018-12-06 08:19] LABS: Basophils # (auto) 0.06 K/uL (0-0.2); Basophils % (auto) 0.3 %; Eosinophils # (auto) 0.07 K/uL (0-0.5); Eosinophils % (auto) 0.3 %; Hematocrit (blood only) 30.3 % (42-52); Hemoglobin 10.8 g/dL (14.0-18.0); Immature Granulocytes # (auto) 0.12 K/uL (0.00-0.02); Immature Granulocytes % (auto) 0.6 %; Lymphocytes % (auto) 7.9 %; Mean Corpuscular Hgb Conc 35.6 g/dL (32-36); Mean Corpuscular Volume 86.6 fL (80-100); Mean Platelet Volume 8.8 fL (7.4-10.4); Monocytes # (auto) 2.24 K/uL (0.11-0.59); Monocytes % (auto) 10.4 %; Neutrophils % (auto) 80.5 %; Platelet Count 642 K/uL (130-400); RDW Coefficient of Variation 16.5 % (11.5-14.5); RDW Standard Deviation 52.8 fL (36.4-46.3); White Blood Count 21.49 K/uL (4.8-10.8)
[2018-12-06 08:20] LABS: BUN Creatinine Ratio 15.1 (10-20); Creatinine Clr Calc Pharmacy 115.8 ml/min; Est GFR (African American) 130.3; Est GFR (Non-African American) 112.5; Potassium 3.6 mmol/L (3.5-5.1)
[2018-12-06] MEDS: ENOXAPARIN INJ 40 MG/0.4 ML SYR SQ SCH (09:14)
[2018-12-06] MEDS: CHECK CLONIDINE PATCH PLACEMENT SCH ×2 (09:14→16:13)
[2018-12-06] MEDS: FOLIC ACID 1 MG TAB PO SCH (09:14)
[2018-12-06] MEDS: PANTOprazole 40 MG in SYRINGE 0 ML IV SCH ×2 (09:15→20:39)
[2018-12-06] MEDS: MULTI VIT W/MINERALS LIQUID 15 ML UDP NG SCH (09:15)
--- NOTE | 2018-12-06 09:42 | Gastroenterology Progress Note ---
Date of Service December 06, 2018 Assessment & Plan (1) Dysphagia: 53 year old male admitted w/ left hip pain s/p ORIF, admission complicated by ETOH withdrawal, transferred to the ICU w/ DT. He was clinically improving, diet advanced transferred to the third floor. This AM he noted abrupt onset chest pain after completion of breakfast. He did have episodes of emesis after which did not relieve symptoms. No coffee ground emesis or hematemesis. He is tolerating his secretions and denies any sensation of esophageal foreign body. He has known eso stenosis, lost to follow up and not compliant with OP therapy. Rule out cardiac source of symptoms, obvious concern for esophageal etiology including food bolus. S/P EGD w/ severe esophageal stenosis related to EoE, treated endoscopically needle knife, a deep 6 cm mucosal/ submucosa tear w/o evidence of perforation on CT chest - Please arrange case management to assist patient with outpatient medication - Clear liquid diet until 12/10/18 - Then full liquid diet until 12/13/18 - Then soft diet until repeat EGD - Use a proton pump inhibitor IV BID for 2 days. - Use Protonix (pantoprazole) 40 mg PO BID for 3 months. - Therapy for EoE with inhaled steroids after healing of the tear. - Repeat upper endoscopy in 4 weeks for retreatment. - No alcohol GI to sign off. Thank you for allowing us to participate in the care of this patient. Please call with any acute changes, questions or concerns. Please see addendum below with additional recommendation from my supervising physician. Supervising Physician Co-Signing Physician Notes I performed a history and physical examination of the patient, including specifically on physical exam - soft, nontender abdomen. I have discussed the patient's management with Anyi. Please refer to the nurse practitioner's note for the documented findings and plan of care. Patient feels better today, no chest pain, has elevated WBC count. CT scan with no leak of contrast or perforation. Plan: Start a course of ABx for bacterial translocation. Continue clear liquids for now. Subjective Pt was seen and evaluated, chart reviewed. No acute events noted overnight. S/P EGD w/ large esophageal tear. CT chest w/ gastrograffin negative for microperforation. No abd pain. No nausea, vomiting. Denies black/bloody stools. EGD: Two benign-appearing severe esophageal stenosis (ring) related to EoE. Treated with incisional therapy using a needle knife. Dilated up to 12- 13.5mm. Deep mucosal/ submucosal, 6 cm long tear (MWT) in the middle third of the esophagus. No visible perforation. Esophageal mucosal changes secondary to eosinophilic esophagitis. Normal stomach. Normal duodenal bulb and second portion of the duodenum. No specimens collected. Review of Systems Constitutional: no fever, no body aches, no weight loss and no insomnia Respiratory: no cough, no dyspnea, no pain on inspiration and no wheezing Cardiovascular: no chest pain, no radiating jaw, neck or arm pain, no dyspnea on exertion and no palpitations Gastrointestinal: no abdominal pain, no early satiety, no nausea, no vomiting, no hematemesis and no pain with swallowing Physical Exam Constitutional: WD/WN, vitals as above Neck: trachea midline Respiratory: normal respiratory effort, lungs clear to auscultation Cardiovascular: Rate/Rhythm: regular rate and regular rhythm Gastrointestinal (Abdomen): normal bowel sounds, soft, nontender, no hepatosplenomegaly Skin: no rashes, warm and dry Results & Data Vital Signs (Past 12 Hours) Vital Signs Temp Pulse Pulse Resp BP Pulse Ox 12/06/18 07:17 36.5 C 98 H 18 130/79 95 12/06/18 05:54 37.1 C 12/06/18 04:07 38 C H 86 16 150/80 H 96 12/05/18 23:50 36.6 C 102 H 24 164/81 H 95 12/05/18 22:00 36.8 C 83 20 189/94 H 91
[2018-12-06] MEDS: ACETAMINOPHEN SOL 650 MG/20.3 ML UDC PO PRN (10:21)
--- NOTE | 2018-12-06 12:20 | Anesthesiology Progress Note ---
Date of Service December 06, 2018 Anesthesia Post Procedure Vital Signs Vital Signs: Temp Pulse Pulse Pulse Resp BP Pulse Ox 12/06/18 07:17 36.5 C 98 H 18 130/79 95 12/06/18 05:54 37.1 C 12/06/18 04:07 38 C H 86 16 150/80 H 96 12/05/18 23:50 36.6 C 102 H 24 164/81 H 95 12/05/18 22:00 36.8 C 83 20 189/94 H 91 12/05/18 21:09 37.3 C 83 16 158/84 H 91 12/05/18 19:58 37.4 C 82 16 135/74 94 12/05/18 19:28 36.8 C 83 16 172/94 H 94 12/05/18 19:09 36.8 C 83 16 172/89 H 96 12/05/18 18:35 81 16 145/90 H 95 12/05/18 18:27 37.1 C 82 18 148/84 H 95 12/05/18 18:15 97 H 18 137/79 96 12/05/18 18:04 36.7 C 96 H 24 108/66 96 12/05/18 16:29 36.8 C 86 20 159/91 H 100 12/05/18 15:25 37.3 C 94 H 18 139/80 98 Pain Intensity Left Hip: Pain Intensity: 10 Left Groin: Pain Intensity: 7 Left Thigh: Pain Intensity: 3 Lower Medial Chest: Pain Intensity: 9 Notes Mental Status: alert / awake / arousable and participated in evaluation Patient Amnestic to Procedure: Yes Nausea / Vomiting: adequately controlled Pain: adequately controlled Airway Patency, RR, SpO2: stable & adequate BP & HR: stable & adequate Hydration State: stable & adequate Anesthetic Complications: no major complications apparent
--- NOTE | 2018-12-06 16:46 | Family Medicine Progress Note ---
Date of Service December 06, 2018 Assessment & Plan (1) Traumatic closed nondisplaced fracture of neck of left femur: Aaron is a 53-year-old male who presented with left lower extremity pain and difficulty weightbearing 2/2 left femoral neck fracture now S/P ORIF. His hospital course was complicated by delirium tremens now improved. He experienced a dysphagia and an esophageal tear, improving as noted below Esophageal tear �Following breakfast on 12/05 he developed strong 8/10 low chest�high abdomen pain which did not improve with sublingual nitro or morphine 2 mg IV. EKG was obtained and showed T wave inversions new compared to his last EKG in August. Cardiology was consulted. Troponins were negative, his presentation was not cardiac in origin and and he underwent an EGD and CT which showed an esophageal tear without perforation. No free air on CT. �GI was consulted, recommends clear liquid diet until 12/10 followed by full liquid diet until 12/13 followed by a soft diet until repeat EGD in 4 weeks. He should remain on Protonix IV twice daily for 2 days then start Protonix 40 mg twice daily by mouth on 12/08 to be continued for 3 months. Once his esophageal tear heals he should be placed on inhaled steroid therapy to prevent esophagitis. �During his EGD above esophageal stenosis/stricture was noted and was dilated during the procedure. See below. �No alcohol. �Will be critical that he is able to be compliant with his pharmacotherapy as above following discharge. He has had difficulty affording medications in the past, will be in close contact with GI on follow-up. �Given the severity is tear and risk for infection he has been started on Flagyl 500 3 times daily and Cipro 400 mg IV twice daily (equivalent to 500 oral) for 1 week. Plan to convert to orals prior to discharge. Aspiration event with dysphagia -Aaron had been n.p.o. out of concern for the inability to swallow safely. His first fluoroscopy showed hernan aspiration and he was kept n.p.o. with nutrition through NGT. After repeat fluoroscopy DEMOLITION CRANE OPERATOR recommended slippery diet but noted that he had poor swallow mechanics. Following a meal he developed chest pain as noted and managed above. �He had clinically relevant esophageal stenoses/strictures which were dilated as noted above. He appears to have improved swallow mechanics and is not having any difficulty liquids since procedure. �Continue management and food recommendations as noted above Left femoral neck fracture �s/P ORIF 11/25/2018 �Surgery following. Recommend allowing full range of motion left hip, knee, and ankle. No hip precautions needed. -PT/OT to continue to see now that acute issues above have been managed. �He will require extensive rehab. Placement is currently an issue given that he has been discharged from several facilities related to his alcohol use. Planning ongoing. Severe alcohol use disorder; delirium tremens (resolved) �Placed on phenobarbital protocol, gradually weaned and did well �Downgraded from ICU status 11/30/2018 �Concern for Warnicke's encephalopathy, s/p tx with thiamine 500mg TID. �Alert, answers questions appropriately today Pain control: Morphine sulfate 2-4 mg IV every 2 hours as needed based on pain scale DVT Prophylaxis: Lovenox 40 mg daily Disposition: Likely to [facility] (2) DTs (delirium tremens): (3) Esophageal tear: (4) Ambulatory dysfunction: (5) Alcoholism: (6) Dysphagia: (7) DVT prophylaxis: Supervising Physician Co-Signing Physician Notes I personally examined the patient and verified all das points of history and exam, discussed case, and agree with decision making with the resident. I also discussed the case with the gastroenterology team. The patient feels much better today terms of his epigastric abdominal pain he had yesterday. In fact he is essentially pain-free. He is tolerating a clear liquid diet today. He is hemodynamically stable and afebrile. Upon examination his abdomen is soft and nontender. Cardiovascular regular rate and rhythm. Lungs clear. Lab work is significant for a white blood cell count 21.4. Hemoglobin is stable at 10.8. Sodium 131. Esophageal tear in the setting of of severe esophageal stenosis related to EoE Leukocytosis, question reactive phenomenon Clear liquid diet Discussed with gastroenterology and will start Flagyl and ciprofloxacin Monitor CBC Traumatic closed non-displaced fracture of the left femoral neck, ORIF left femoral neck fracture Complicated by alcohol withdrawal and dysphagia, now resolved, as well as yesterday's diagnosis of an esophageal tear Physical therapy. He would be best served with inpatient rehabilitation although placement has been difficult. Case management continues efforts. Anemia and thrombocytosis Hemoglobin has been stable Platelet count at 642 today and I suspect this is a reactive phenomenon but will need to follow Hyponatremia Stable Continue to monitor Subjective Aaron reports his stomach pain has completely resolved. He continues to be a little achy in his left thigh from the surgery, but is having no pain in his chest. He is able to drink clear liquids today and is not having any problems with coughing or reflux. He had no fevers or chills overnight. He reported he slept well after the procedure since his pain resolved. No nausea or vomiting today. Review of Systems Review of Systems: Constitutional: Denies fever, chills, malaise Eyes: Denies vision change ENT: Denies sore throat. Endorses hearing loss, chronic Cardiovascular: Denies Chest pain, chest pressure, palpitations, extremity swelling Respiratory: Denies shortness of breath, sputum production, difficulty breathing. No cough today. Gastrointestinal: Denies stomach pain, nausea. Genitourinary: Denies pain with urination Musculoskeletal: Endorses leg weakness and difficulty standing with PT. Endorses R thigh ache. Denies bone pain. Physical Exam Physical Exam: General: A&Ox3. Hard of hearing. Cooperative, comfortable. HEENT: Atraumatic, normocephalic. Pulm: Normal air movement, CTAB A&P. -wheezes, -rales, -rhonchi. Symmetrical chest rise. No increase work of breathing. No respiratory distress. Cardiac: RRR, -mrg. Radial pulses intact and symmetrical. Abdominal: No abdominal tenderness. nondistended, soft. BS present. Results & Data Vital Signs (Past 12 Hours) Vital Signs Temp Pulse Pulse Resp BP Pulse Ox 12/06/18 07:17 36.5 C 98 H 18 130/79 95 12/06/18 05:54 37.1 C 12/06/18 04:07 38 C H 86 16 150/80 H 96 12/05/18 23:50 36.6 C 102 H 24 164/81 H 95 Resident Activity Tracking Resident Involvement: Resident Care Provided Care Provided: Adult Hospital Medicine
[2018-12-06] MEDS: metroNIDAZOLE 500 MG/100 ML BAG IV SCH (17:44)
[2018-12-06] MEDS: CIPROFLOXACIN 400 MG/200 ML BAG IV SCH (17:49)
[2018-12-06] MEDS ORDERED: OXYCODONE HCL IR 5 MG TAB (IMMEDIATE RELEASE) PO PRN (18:01)
[2018-12-06] MEDS: OXYCODONE HCL IR 5 MG TAB (IMMEDIATE RELEASE) PO PRN (18:16)
[2018-12-07] MEDS: metroNIDAZOLE 500 MG/100 ML BAG IV SCH ×3 (00:20→15:27)
[2018-12-07] MEDS: CHECK CLONIDINE PATCH PLACEMENT SCH ×3 (00:21→15:27)
[2018-12-07] MEDS: OXYCODONE HCL IR 5 MG TAB (IMMEDIATE RELEASE) PO PRN ×4 (01:30→22:07)
[2018-12-07] MEDS: CIPROFLOXACIN 400 MG/200 ML BAG IV SCH ×2 (05:32→16:32)
[2018-12-07 07:12] LABS: Basophils # (auto) 0.08 K/uL (0-0.2); Basophils % (auto) 0.8 %; Eosinophils # (auto) 0.35 K/uL (0-0.5); Eosinophils % (auto) 3.3 %; Hematocrit (blood only) 26.7 % (42-52); Hemoglobin 8.9 g/dL (14.0-18.0); Immature Granulocytes # (auto) 0.06 K/uL (0.00-0.02); Immature Granulocytes % (auto) 0.6 %; Lymphocytes # (auto) 1.66 K/uL (1.2-3.4); Lymphocytes % (auto) 15.8 %; Mean Corpuscular Hgb Conc 33.3 g/dL (32-36); Mean Corpuscular Volume 88.4 fL (80-100); Mean Platelet Volume 8.5 fL (7.4-10.4); Monocytes # (auto) 1.59 K/uL (0.11-0.59); Monocytes % (auto) 15.2 %; Neutrophils # (auto) 6.74 K/uL (1.4-6.5); Neutrophils % (auto) 64.3 %; Platelet Count 537 K/uL (130-400); RDW Coefficient of Variation 15.9 % (11.5-14.5); RDW Standard Deviation 51.6 fL (36.4-46.3); Red Blood Count 3.02 M/uL (4.7-6.1); White Blood Count 10.48 K/uL (4.8-10.8)
[2018-12-07 07:45] LABS: Calcium 8.6 mg/dl (8.5-10.1); Creatinine Clr Calc Pharmacy 138.1 ml/min; Est GFR (African American) 140.1; Est GFR (Non-African American) 120.9; Potassium 3.4 mmol/L (3.5-5.1)
[2018-12-07] MEDS: FOLIC ACID 1 MG TAB PO SCH (08:33)
[2018-12-07] MEDS: MULTI VIT W/MINERALS LIQUID 15 ML UDP NG SCH (08:33)
[2018-12-07] MEDS: PANTOprazole 40 MG in SYRINGE 0 ML IV SCH ×2 (08:33→22:00)
[2018-12-07] MEDS: ENOXAPARIN INJ 40 MG/0.4 ML SYR SQ SCH (08:34)
--- NOTE | 2018-12-07 10:26 | Orthopedic Progress Note ---
Date of Service December 07, 2018 Assessment & Plan (1) Traumatic closed nondisplaced fracture of neck of left femur: POD 12- ORIF left femoral neck fracture May be out of bed, weight bear as tolerated left lower extremity with assistance of a walker Ice to left hip PRN pain/swelling Allowed for full ROM left hip, knee and ankle No hip precautions needed. PT/OT to start when able. Lovenox for DVT prophylaxis as per medicine Case management for discharge planning. Will continue to follow Dr. Haynes was present during the evaluation. Follow-up appointment scheduled with Dr Haynes in 4wks. If needs changed please call [phone]. Will sign off at this time, please call with questions or concerns. Subjective Aaron reports his stomach pain has completely resolved. He continues to be a little achy in his left thigh from the surgery, but is having no pain in his chest. He is able to drink clear liquids today and is not having any problems with coughing or reflux. He had no fevers or chills overnight. He reported he slept well after the procedure since his pain resolved. No nausea or vomiting today. Currently his is being evaluated by gastroenterology due to esophageal stricture/tear. Review of Systems Review of Systems: All systems reviewed & are unremarkable except as noted in HPI & below Physical Exam Physical Exam: Left hip: non tender to palpation over fracture site. [place] removed. Wound well healed and covered with steri-strips. Able to ambulate with walker assistance. NV intact. No edema, erythema, ecchymosis, warmth or deformity. No fluctuance/discharge from incision site. No pain with log roll or light passive internal/external rotation. Results & Data Vital Signs (Past 12 Hours) Vital Signs Temp Pulse Pulse Resp BP Pulse Ox 12/07/18 08:00 36.8 C 78 14 142/80 H 97 12/06/18 23:14 36.9 C 81 18 118/73 96 Laboratory Results 12/07/18 12/07/18 Range/Units 06:53 06:53 WBC 10.48 D (4.8-10.8) K/uL RBC 3.02 L (4.7-6.1) M/uL Hgb 8.9 L (14.0-18.0) g/dL Hct 26.7 L (42-52) % MCV 88.4 (80-100) fL MCH 29.5 (25-34) pg MCHC 33.3 (32-36) g/dL RDW Std Deviation 51.6 H (36.4-46.3) fL RDW Coeff of Luis 15.9 H (11.5-14.5) % Plt Count 537 H (130-400) K/uL MPV 8.5 (7.4-10.4) fL Immature Gran % (Auto) 0.6 % Neut % (Auto) 64.3 % Lymph % (Auto) 15.8 % Avery % (Auto) 15.2 % Eos % (Auto) 3.3 % Baso % (Auto) 0.8 % Immature Gran # (Auto) 0.06 H (0.00-0.02) K/uL Neut # (Auto) 6.74 H (1.4-6.5) K/uL Lymph # (Auto) 1.66 (1.2-3.4) K/uL Avery # (Auto) 1.59 H (0.11-0.59) K/uL Eos # (Auto) 0.35 (0-0.5) K/uL Baso # (Auto) 0.08 (0-0.2) K/uL Sodium 131 L (136-145) mmol/L Potassium 3.4 L (3.5-5.1) mmol/L Chloride 98 (98-107) mmol/L Carbon Dioxide 24 (21-32) mmol/L Anion Gap 8.0 (3-11) BUN 7 (7-18) mg/dl Creatinine 0.52 L (0.6-1.4) mg/dl Est Cr Clr Drug Dosing 138.1 ml/min Est GFR ( Amer) 140.1 Est GFR (Non-Af Amer) 120.9 BUN/Creatinine Ratio 14.0 (10-20) Glucose 100 H (70-99) mg/dl Calcium 8.6 (8.5-10.1) mg/dl
--- NOTE | 2018-12-07 10:29 | Family Medicine Progress Note ---
Date of Service December 07, 2018 Assessment & Plan (1) Esophageal tear: Aaron is a 53-year-old male who presented with left lower extremity pain and difficulty weightbearing 2/2 left femoral neck fracture now S/P ORIF. His hospital course was complicated by delirium tremens now improved. He e xperienced a dysphagia and an esophageal tear, improving as noted below Esophageal tear �Following breakfast on 12/05 he developed strong 8/10 low chest�high abdomen pain which did not improve with sublingual nitro or morphine 2 mg IV. EKG was obtained and showed T wave inversions new compared to his last EKG in August. Cardiology was consulted. Troponins were negative, his presentation was not cardiac in origin and and he underwent an EGD and CT which showed an esophageal tear without perforation. No free air on CT. �GI was consulted, recommends clear liquid diet until 12/10 followed by full liquid diet until 12/13 followed by a soft diet until repeat EGD in 4 weeks. He should remain on Protonix IV twice daily for 2 days then start Protonix 40 mg twice daily by mouth on 12/08 to be continued for 3 months. Once his esophageal tear heals he should be placed on inhaled steroid therapy to prevent esophagitis. �During his EGD above esophageal stenosis/stricture was noted and was dilated during the procedure. See below. �No alcohol. �Will be critical that he is able to be compliant with his pharmacotherapy as above following discharge. He has had difficulty affording medications in the past, will be in close contact with GI on follow-up. �Given the severity is tear and risk for infection he has been started on Flagyl 500 3 times daily and Cipro 400 mg IV twice daily (equivalent to 500 oral) for 1 week (give through 12/12) . Plan to convert to orals prior to discharge. Left femoral neck fracture �s/P ORIF 11/25/2018 �Surgery following. Recommend allowing full range of motion left hip, knee, and ankle. No hip precautions needed. -PT/OT to continue to see now that acute issues above have been managed. �He will require extensive rehab. PT recommended SNF (6-clicks with 43% functional loss). Placement is currently an issue given that he has been discharged from several facilities related to his alcohol use. Planning ongoing. Aspiration event with dysphagia -Aaron had been n.p.o. out of concern for the inability to swallow safely. His first fluoroscopy showed hernan aspiration and he was kept n.p.o. with nutrition through NGT. 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 Following a meal he developed chest pain as noted and managed above. �He had clinically relevant esophageal stenoses/strictures which were dilated as noted above. He appears to have improved swallow mechanics and is not having any difficulty liquids since procedure. �Continue management and food recommendations as noted above - No sign of PNA at this time Severe alcohol use disorder; delirium tremens (resolved) �Placed on phenobarbital protocol, gradually weaned and did well �Downgraded from ICU status 11/30/2018 �Concern for Warnicke's encephalopathy, s/p tx with thiamine 500mg TID. �Alert, answers questions appropriately today - No verices noted on EGD, but EtoH is potentially very harmful especially at this time given his esophageal tear. Pain control: Oxycodone 5-10mg PRN DVT Prophylaxis: Lovenox 40 mg daily Disposition: Ongoing, anticipate being here through the weekend while diet is slowly advanced and he is transitioned from IV PPI medications to p.o. Beyond that his disposition will require placement, he requires a SNF level care for rehab (2) Traumatic closed nondisplaced fracture of neck of left femur: (3) DTs (delirium tremens): Supervising Physician Co-Signing Physician Notes Patient seen and examined with Dr. Arellano. Agree with history, exam findings, assessment and plan of care as outlined: In brief, Mr. Chang is a 52 year old male admitted after a fall and found to have a hip fx and is now s/p ORIF. His hospital stay has been complicated by ICU stay for DTs (hx of chronic, daily ETOH use) and an esophageal stricture and now tear. Of note he does have a history of recurrent esophageal stricture and is know to the GI service, having required dilatation in the past. 1. Hx of recurrent strictures, now with full perf. Hx of eosinophilic esophagitis. PPI BID x 3 months. Clears for 3 days. On Cipro/flagyl per GI. WBCs trending down now 21-->10.5. 2. Anemia. Hgb 8.9 3. Hyponatremia. Na 131. 4. Hypokalemia. K 3.4 Dispo: pending placement. Appreciate case management assistance with finding appropriate rehab placement for Mr. Chang. Subjective Aaron reports he feels okay today, but that his left leg continues to ache and he has difficulty ambulating. He worked with physical therapy but had a lot of pain after a short walk. He did not have any problems today with shortness of breath, chest pain, chest pressure, abdominal pain, stomach pain, nausea, vomiting, diarrhea, constipation. He has had no fevers or chills. He is not tremulous today. He recognizes that he has lost a lot of strength, and that he will likely need rehab. Review of Systems Review of Systems: Constitutional: Denies fever, chills, malaise Eyes: Denies vision change ENT: Denies sore throat. Endorses hearing loss, chronic Cardiovascular: Denies Chest pain, chest pressure, palpitations, extremity swelling Respiratory: Denies shortness of breath, sputum production, difficulty breathing. No cough today. Gastrointestinal: Denies stomach pain, nausea. Genitourinary: Denies pain with urination Musculoskeletal: Endorses leg weakness and difficulty standing/walking with PT. Endorses R thigh ache. Physical Exam Physical Exam: General: A&Ox3. Hard of hearing. Cooperative, comfortable. HEENT: Atraumatic, normocephalic. Pulm: Normal air movement, CTAB A&P. -wheezes, -rales, -rhonchi. Symmetrical chest rise. No increase work of breathing. No respiratory distress. Cardiac: RRR, -mrg. Radial pulses intact and symmetrical. Abdominal: No abdominal tenderness. nondistended, soft. BS present. Results & Data Vital Signs (Past 12 Hours) Vital Signs Temp Pulse Resp BP Pulse Ox 12/06/18 23:14 36.9 C 81 18 118/73 96 Resident Activity Tracking Resident Involvement: Resident Care Provided Care Provided: Adult [facility] Medicine
--- NOTE | 2018-12-07 11:33 | XRay Report ---
XR hip LT min 2V HISTORY: 53 years-old Male s/p ORIF left femoral neck Fx status post ORIF of the left hip COMPARISON: [facility] 12/05/2018 TECHNIQUE: 2 views of the left hip FINDINGS: ORIF changes of the left hip redemonstrated with intact hardware fixating an acute or subacute appear ing left proximal femoral fracture. Mild left hip osteoarthritis. Retained enteric contrast about the large bowel with colonic diverticulosis. IMPRESSION: 1. Satisfactory alignment of the left proximal femoral fracture with intact hardware. The above report was generated using voice recognition software. It may contain grammatical, syntax o r spelling errors. Electronically signed by: Mark Hernandez M.D. 12/07/2018 11:32 AM
[2018-12-07] MEDS: ACETAMINOPHEN SOL 650 MG/20.3 ML UDC PO PRN (19:58)
[2018-12-08] MEDS: metroNIDAZOLE 500 MG/100 ML BAG IV SCH ×4 (00:23→23:50)
[2018-12-08] MEDS: CHECK CLONIDINE PATCH PLACEMENT SCH ×4 (00:23→23:59)
[2018-12-08] MEDS: CIPROFLOXACIN 400 MG/200 ML BAG IV SCH ×2 (05:19→16:05)
[2018-12-08 06:33] LABS: Basophils # (auto) 0.08 K/uL (0-0.2); Basophils % (auto) 0.9 %; Eosinophils # (auto) 0.38 K/uL (0-0.5); Eosinophils % (auto) 4.1 %; Hemoglobin 10.3 g/dL (14.0-18.0); Immature Granulocytes # (auto) 0.07 K/uL (0.00-0.02); Immature Granulocytes % (auto) 0.8 %; Lymphocytes # (auto) 1.86 K/uL (1.2-3.4); Mean Corpuscular Hgb Conc 33.2 g/dL (32-36); Mean Corpuscular Volume 89.1 fL (80-100); Mean Platelet Volume 8.6 fL (7.4-10.4); Monocytes # (auto) 1.15 K/uL (0.11-0.59); Monocytes % (auto) 12.4 %; Neutrophils # (auto) 5.77 K/uL (1.4-6.5); Neutrophils % (auto) 61.8 %; Platelet Count 681 K/uL (130-400); RDW Coefficient of Variation 15.7 % (11.5-14.5); RDW Standard Deviation 50.8 fL (36.4-46.3); Red Blood Count 3.48 M/uL (4.7-6.1); White Blood Count 9.31 K/uL (4.8-10.8)
[2018-12-08 07:01] LABS: Creatinine Clr Calc Pharmacy 121.7 ml/min; Est GFR (Non-African American) 114.8; Potassium 3.5 mmol/L (3.5-5.1)
[2018-12-08] MEDS: OXYCODONE HCL IR 5 MG TAB (IMMEDIATE RELEASE) PO PRN ×3 (07:29→23:58)
[2018-12-08] MEDS: MULTI VIT W/MINERALS LIQUID 15 ML UDP NG SCH (08:18)
[2018-12-08] MEDS: ENOXAPARIN INJ 40 MG/0.4 ML SYR SQ SCH (08:18)
[2018-12-08] MEDS: FOLIC ACID 1 MG TAB PO SCH (08:18)
--- NOTE | 2018-12-08 08:23 | Family Medicine Progress Note ---
Date of Service December 08, 2018 Assessment & Plan (1) Esophageal tear: Aaron is a 53-year-old male who presented with left lower extremity pain and difficulty weightbearing 2/2 left femoral neck fracture now S/P ORIF. His hospital course was complicated by delirium tremens now improved. He e xperienced a dysphagia and an esophageal tear, improving as noted below Esophageal tear �Following breakfast on 12/05 he developed strong 8/10 low chest�high abdomen pain which did not improve with sublingual nitro or morphine 2 mg IV. EKG was obtained and showed T wave inversions new compared to his last EKG in August. Cardiology was consulted. Troponins were negative, his presentation was not cardiac in origin and and he underwent an EGD and CT which showed an esophageal tear without perforation. No free air on CT. �GI was consulted, recommends clear liquid diet until 12/10 followed by full liquid diet until 12/13 followed by a soft diet until repeat EGD in 4 weeks. He should remain on Protonix IV twice daily for 2 days then start Protonix 40 mg twice daily by mouth on 12/08 to be continued for 3 months. Once his esophageal tear heals he should be placed on inhaled steroid therapy to prevent esophagitis. -on clear liquid diet -transition to PO protonix �During his EGD above esophageal stenosis/stricture was noted and was dilated during the procedure. See below. �No alcohol. �Will be critical that he is able to be compliant with his pharmacotherapy as above following discharge. He has had difficulty affording medications in the past, will be in close contact with GI on follow-up. �Given the severity is tear and risk for infection he has been started on Flagyl 500 3 times daily and Cipro 400 mg IV twice daily (equivalent to 500 oral) for 1 week (give through 12/12) . Converted to oral tomorrow. Left femoral neck fracture �s/P ORIF 11/25/2018 POD 12 �Surgery following. Recommend allowing full range of motion left hip, knee, and ankle. No hip precautions needed. -Follow-up appointment scheduled with Dr Haynes in 4wks. If needs changed please call [phone]. -Surgery signed off -PT/OT to continue to see now that acute issues above have been managed. �He will require extensive rehab. PT recommended SNF (6-clicks with 43% functional loss). Placement is currently an issue given that he has been discharged from several facilities related to his alcohol use. Planning ongoing. Aspiration event with dysphagia -Aaron had been n.p.o. out of concern for the inability to swallow safely. His first fluoroscopy showed hernan aspiration and he was kept n.p.o. with nutrition through NGT. After repeat fluoroscopy [employer] recommended slippery diet but noted that he had poor swallow mechanics. Following a meal he developed chest pain as noted and managed above. �He had clinically relevant esophageal stenoses/strictures which were dilated as noted above. He appears to have improved swallow mechanics and is not having any difficulty liquids since procedure. �Continue management and food recommendations as noted above - No sign of PNA at this time Severe alcohol use disorder; delirium tremens (resolved) �Placed on phenobarbital protocol, gradually weaned and did well �Downgraded from ICU status 11/30/2018 �Concern for Warnicke's encephalopathy, s/p tx with thiamine 500mg TID. �Alert, answers questions appropriately today - No verices noted on EGD, but EtoH is potentially very harmful especially at this time given his esophageal tear. - AAOx4 Pain control: Oxycodone 5-10mg PRN DVT Prophylaxis: Lovenox 40 mg daily Disposition: Ongoing, anticipate being here through the weekend while diet is slowly advanced and he is transitioned from IV PPI medications to p.o. Beyond that his disposition will require placement, he requires a SNF level care for rehab (2) Traumatic closed nondisplaced fracture of neck of left femur: See Above (3) DTs (delirium tremens): See above Supervising Physician Co-Signing Physician Notes Patient seen and examined with Dr. Gonzalez. Agree with history, exam findings, assessment and plan of care as outlined: In brief, Mr. Chang is a 52 year old male admitted after a fall and found to have a hip fx and is now s/p ORIF. His hospital stay has been complicated by ICU stay for DTs (hx of chronic, daily ETOH use) and an esophageal stricture and now tear. Of note he does have a history of recurrent esophageal stricture and is know to the GI service, having required dilatation in the past. 1. Hx of recurrent strictures, now with full perf. Hx of eosinophilic esophagitis. PPI BID x 3 months. Clears for 3 days. On Cipro/flagyl per GI. WBCs trending down. 2. Anemia. stable. asymptomatic. monitor. 3. Hyponatremia. stable. 4. Electrolyte disturbance. replete lytes as needed. Dispo: pending placement. Appreciate case management assistance with finding appropriate rehab placement for Mr. Chang. Subjective Patient sitting upright in a chair eating in no acute distress. Patient reports doing well overnight with no significant complaints, still having difficulty sleeping, however he reports this is baseline. From medical standpoint this patient appears to be fairly stable. Patient is eager to go to rehab, case management is working on insurance approval. No acute concerns at present, answered all questions no acute concerns Patient denies fevers, chills, nausea, vomiting, diarrhea, other signs or symptoms of acute infectious process Physical Exam Physical Exam: General: A&Ox3. Hard of hearing. Cooperative, comfortable. HEENT: Atraumatic, normocephalic. Pulm: Normal air movement, CTAB A&P. -wheezes, -rales, -rhonchi. Symmetrical chest rise. No increase work of breathing. No respiratory distress. Cardiac: RRR, -mrg. Radial pulses intact and symmetrical. Abdominal: No abdominal tenderness. nondistended, soft. BS present. Results & Data Vital Signs (Past 12 Hours) Vital Signs Temp Pulse Resp BP Pulse Ox 12/07/18 22:56 36.8 C 66 16 124/73 96 Laboratory Results 12/08/18 12/08/18 Range/Units 06:06 06:06 WBC 9.31 (4.8-10.8) K/uL RBC 3.48 L (4.7-6.1) M/uL Hgb 10.3 L (14.0-18.0) g/dL Hct 31.0 L (42-52) % MCV 89.1 (80-100) fL MCH 29.6 (25-34) pg MCHC 33.2 (32-36) g/dL RDW Std Deviation 50.8 H (36.4-46.3) fL RDW Coeff of Luis 15.7 H (11.5-14.5) % Plt Count 681 H (130-400) K/uL MPV 8.6 (7.4-10.4) fL Immature Gran % (Auto) 0.8 % Neut % (Auto) 61.8 % Lymph % (Auto) 20.0 % Teller % (Auto) 12.4 % Eos % (Auto) 4.1 % Baso % (Auto) 0.9 % Immature Gran # (Auto) 0.07 H (0.00-0.02) K/uL Neut # (Auto) 5.77 (1.4-6.5) K/uL Lymph # (Auto) 1.86 (1.2-3.4) K/uL Teller # (Auto) 1.15 H (0.11-0.59) K/uL Eos # (Auto) 0.38 (0-0.5) K/uL Baso # (Auto) 0.08 (0-0.2) K/uL Sodium 132 L (136-145) mmol/L Potassium 3.5 (3.5-5.1) mmol/L Chloride 99 (98-107) mmol/L Carbon Dioxide 23 (21-32) mmol/L Anion Gap 9.0 (3-11) BUN 5 L (7-18) mg/dl Creatinine 0.59 L (0.6-1.4) mg/dl Est Cr Clr Drug Dosing 121.7 ml/min Est GFR ( Amer) 133.0 Est GFR (Non-Af Amer) 114.8 BUN/Creatinine Ratio 8.0 L (10-20) Glucose 107 H (70-99) mg/dl Calcium 9.0 (8.5-10.1) mg/dl Medications Administered Current Inpatient Medications Acetaminophen (Tylenol) 650 mg PO Q4H PRN PRN Reason: pain/fever Stop: 01/02/19 01:22 Last Admin: 12/07/18 19:58 Dose: 650 mg Documented by: Clonidine HCl (Catapres) 0.1 mg NG BID [facility] [place] Stop: 12/29/18 21:29 Last Admin: 12/05/18 20:46 Dose: Not Given Documented by: Clonidine HCl (Hvviipig-Eki-9 0.1mg/24hr) 1 patch TD Th@0900 [facility] Stop: 01/05/19 00:59 Last Admin: 12/06/18 02:31 Dose: 1 patch Documented by: Dextrose (Dextrose 50%) 25 - 50 ml IV UD PRN; Protocol PRN Reason: Hypoglycemia Protocol Stop: 12/27/18 11:59 Enoxaparin Sodium (Lovenox) 40 mg SQ QAM [facility] Stop: 12/24/18 08:59 Last Admin: 12/07/18 08:34 Dose: 40 mg Documented by: Enteral Nutritional Formula (Fibersource Hn 1.2 Javid Liquid) 1,000 ml NG UD [facility] [place]; Protocol Stop: 12/27/18 14:29 Last Admin: 12/03/18 23:16 Dose: 1,000 ml Documented by: Folic Acid (Folvite) 1 mg PO QAM [facility] Stop: 01/04/19 08:59 Last Admin: 12/07/18 08:33 Dose: 1 mg Documented by: Glucagon (Glucagen) 1 mg IM UD PRN; Protocol PRN Reason: Hypoglycemia Protocol Stop: 12/27/18 11:59 Glucose (Glucose 40%) 15 - 30 gm PO UD PRN; Protocol PRN Reason: Hypoglycemia Protocol Stop: 12/27/18 11:59 Glucose (Dex4 Glucose) 4 - 8 tabs PO UD PRN; Protocol PRN Reason: Hypoglycemia Protocol Stop: 12/27/18 11:59 Pantoprazole Sodium 40 mg/ (Syringe) 10 mls @ 5 mls/min IV BID@0900,2100 [facility] [place] Stop: 01/04/19 18:29 Last Admin: 12/07/18 22:00 Dose: 5 mls/min Documented by: Metronidazole (Flagyl) 500 mg in 100 mls @ 100 mls/hr IV Q8H [facility] [place] Stop: 12/16/18 15:59 Last Infusion: 12/08/18 01:23 Dose: Infused Documented by: Ciprofloxacin (Cipro) 400 mg in 200 mls @ 100 mls/hr IV Q12H [facility] Stop: 12/16/18 16:59 Last Infusion: 12/08/18 07:28 Dose: Infused Documented by: Lactulose (Chronulac) 30 gm PO Q8H PRN PRN Reason: constipation Stop: 12/28/18 08:59 Miscellaneous (Carbohydrates For Hypoglycemia) 15 - 30 gm PO UD PRN PRN Reason: Hypoglycemia Treatment Stop: 12/27/18 11:59 Miscellaneous (Remove Clonidine Patch) 1 ea N/A Th@0859 [facility] Stop: 01/12/19 08:58 Miscellaneous (Check Clonidine Patch) 1 ea N/A QS [facility] Stop: 01/05/19 07:59 Last Admin: 12/08/18 00:23 Dose: 1 ea Documented by: Multivitamins/Minerals (Cerovite Liquid) 15 ml NG QAM [facility] Stop: 12/28/18 11:59 Last Admin: 12/07/18 08:33 Dose: 15 ml Documented by: Ondansetron HCl (Zofran) 4 mg IV Q6H PRN PRN Reason: Nausea And Vomiting Stop: 12/25/18 17:16 Last Admin: 11/25/18 19:17 Dose: 4 mg Documented by: Oxycodone HCl (Roxicodone Immediate Rel) 5 mg PO Q6H PRN PRN Reason: Moderate Pain (4,5,6) Stop: 12/20/18 18:00 Oxycodone HCl (Roxicodone Immediate Rel) 10 mg PO Q6H PRN PRN Reason: Severe Pain (7,8,9,10) Stop: 12/20/18 18:00 Last Admin: 12/08/18 07:29 Dose: 10 mg Documented by: Resident Activity Tracking Resident Involvement: Resident Care Provided Care Provided: Adult Hospital Medicine
[2018-12-08] MEDS: PANTOprazole 40 MG TAB PO SCH ×2 (09:06→21:18)
[2018-12-09] MEDS: CIPROFLOXACIN 400 MG/200 ML BAG IV SCH (05:45)
[2018-12-09 06:24] LABS: Basophils # (auto) 0.08 K/uL (0-0.2); Basophils % (auto) 1.1 %; Eosinophils # (auto) 0.32 K/uL (0-0.5); Eosinophils % (auto) 4.4 %; Hematocrit (blood only) 29.2 % (42-52); Immature Granulocytes # (auto) 0.06 K/uL (0.00-0.02); Immature Granulocytes % (auto) 0.8 %; Lymphocytes # (auto) 2.12 K/uL (1.2-3.4); Lymphocytes % (auto) 28.9 %; Mean Corpuscular Hgb Conc 34.2 g/dL (32-36); Mean Platelet Volume 8.5 fL (7.4-10.4); Monocytes # (auto) 0.92 K/uL (0.11-0.59); Monocytes % (auto) 12.6 %; Neutrophils # (auto) 3.83 K/uL (1.4-6.5); Neutrophils % (auto) 52.2 %; Platelet Count 660 K/uL (130-400); RDW Coefficient of Variation 15.8 % (11.5-14.5); Red Blood Count 3.32 M/uL (4.7-6.1); White Blood Count 7.33 K/uL (4.8-10.8)
[2018-12-09 06:49] LABS: BUN Creatinine Ratio 6.2 (10-20); Creatinine Clr Calc Pharmacy 143.6 ml/min; Est GFR (African American) 142.4; Est GFR (Non-African American) 122.9; Potassium 3.4 mmol/L (3.5-5.1)
--- NOTE | 2018-12-09 07:25 | Family Medicine Progress Note ---
Date of Service December 09, 2018 Assessment & Plan (1) Esophageal tear: Aaron is a 53-year-old male who presented with left lower extremity pain and difficulty weightbearing 2/2 left femoral neck fracture now S/P ORIF. His hospital course was complicated by delirium tremens now improved. He e xperienced a dysphagia and an esophageal tear, improving as noted below Esophageal tear Following breakfast on 12/05 he developed strong 8/10 low chest�high abdomen pain which did not improve with sublingual nitro or morphine 2 mg IV. EKG was obtained and showed T wave inversions new compared to his last EKG in August. Cardiology was consulted. Troponins were negative, his presentation was not cardiac in origin and and he underwent an EGD and CT which showed an esophageal tear without perforation. No free air on CT. During his EGD above esophageal stenosis/stricture was noted and was dilated during the procedure. See below. Will be critical that he is able to be compliant with his pharmacotherapy as above following discharge. He has had difficulty affording medications in the past, will be in close contact with GI on follow-up. �GI was consulted, recommends clear liquid diet until 12/10 followed by full liquid diet until 12/13 followed by a soft diet until repeat EGD in 4 weeks. He should remain on Protonix IV twice daily for 2 days then start Protonix 40 mg twice daily by mouth on 12/08 to be continued for 3 months. Once his esophageal tear heals he should be placed on inhaled steroid therapy to prevent esophagitis. -on full liquids -advanced protonix to po -Transition patient to oral antibiotics Flagyl 500 mg every 8 hours, Cipro 500 mg twice daily Left femoral neck fracture S/P ORIF 11/25/2018 POD 13 He will require extensive rehab. PT recommended SNF (6-clicks with 43% functional loss). Placement is currently an issue given that he has been discharged from several facilities related to his alcohol use. Planning ongoing. �Surgery Consulted. Recommend allowing full range of motion left hip, knee, and ankle. No hip precautions needed. -Follow-up appointment scheduled with Dr Haynes in 4wks. If needs changed please call [phone]. -Surgery signed off -PT/OT to continue to see now that acute issues above have been managed. Aspiration event with dysphagia Aaron had been n.p.o. out of concern for the inability to swallow safely. His first fluoroscopy showed hernan aspiration and he was kept n.p.o. with nutrition through NGT. After repeat fluoroscopy [employer] recommended slippery diet but noted that he had poor swallow mechanics. Following a meal he developed chest pain as noted and managed above. He had clinically relevant esophageal stenoses/strictures which were dilated as noted above. He appears to have improved swallow mechanics and is not having any difficulty liquids since procedure. - Continue management and food recommendations as noted above - No sign of PNA at this time Severe alcohol use disorder; delirium tremens (resolved) Placed on phenobarbital protocol, gradually weaned and did well, Downgraded from ICU status 11/30/2018, There was concern for Warnicke's encephalopathy, s/p tx with thiamine 500mg TID. He remains alert, answers questions appropriately today - No verices noted on EGD, but EtoH is potentially very harmful especially at this time given his esophageal tear. - AAOx4 Pain control: Oxycodone 5-10mg PRN DVT Prophylaxis: Lovenox 40 mg daily Disposition: Awaiting placement (2) Traumatic closed nondisplaced fracture of neck of left femur: See Above (3) DTs (delirium tremens): See above Supervising Physician Co-Signing Physician Notes Patient seen and examined with Dr. Gonzalez. Agree with history, exam findings, assessment and plan of care as outlined: In brief, Mr. Chang is a 52 year old male admitted after a fall and found to have a hip fx and is now s/p ORIF. His hospital stay has been complicated by ICU stay for DTs (hx of chronic, daily ETOH use) and an esophageal stricture and now tear. Of note he does have a history of recurrent esophageal stricture and is know to the GI service, having required dilatation in the past. Reports generally feeling well. Frustrated about the difficulty with rehab placement. Reports some left groin pain. I observed him walking with PT--no limp, steady gait with the walker. 1. Hx of recurrent strictures, now with full perf. Hx of eosinophilic esophagitis. PPI BID x 3 months. On slippery diet. Continue Cipro/flagyl per GI. WBCs trended down. 2. Anemia. stable. asymptomatic. monitor. 3. Hyponatremia. stable. 4. Electrolyte disturbance. replete lytes as needed. 5. groin pain, likely post-surgical. May consider increase in pain medication, although I suspect that this pain will improve as the post-operative swelling improves. Low suspicion for hematoma. However, if pain continues to be an issue, would obtain new imaging. Dispo: pending placement. Appreciate case management assistance with finding appropriate rehab placement for Mr. Chang. Subjective Patient sitting up in his chair in no acute distress. Patient reports having a rough night overnight, states his pain is been getting worse. Had a lengthy discussion with the patient about the addictive nature of oxycodone and similar medications. Stating that the goal of the pain medication was not to alleviate playing completely however make it manageable. Patient was agreeable although disappointed. Otherwise patient is doing well no acute complaints, making urine, stooling, eating, sleeping no acute concerns are present awaiting placement. Physical Exam Physical Exam: General: A&Ox3. Hard of hearing. Cooperative, comfortable. HEENT: Atraumatic, normocephalic. Pulm: Normal air movement, CTAB A&P. -wheezes, -rales, -rhonchi. Symmetrical chest rise. No increase work of breathing. No respiratory distress. Cardiac: RRR, -mrg. Radial pulses intact and symmetrical. Abdominal: No abdominal tenderness. nondistended, soft. BS present. Results & Data Vital Signs (Past 12 Hours) Vital Signs Temp Pulse Pulse Resp BP Pulse Ox 12/09/18 07:15 36.9 C 72 16 166/76 H 100 12/08/18 23:00 36.7 C 74 16 125/71 99 Resident Activity Tracking Resident Involvement: Resident Care Provided Care Provided: Adult [facility]
[2018-12-09] MEDS: OXYCODONE HCL IR 5 MG TAB (IMMEDIATE RELEASE) PO PRN ×2 (07:57→20:43)
[2018-12-09] MEDS: CHECK CLONIDINE PATCH PLACEMENT SCH ×2 (07:58→16:48)
[2018-12-09] MEDS: metroNIDAZOLE 500 MG/100 ML BAG IV SCH (08:04)
[2018-12-09] MEDS: FOLIC ACID 1 MG TAB PO SCH (08:09)
[2018-12-09] MEDS: ENOXAPARIN INJ 40 MG/0.4 ML SYR SQ SCH (08:09)
[2018-12-09] MEDS: MULTI VIT W/MINERALS LIQUID 15 ML UDP NG SCH (08:10)
[2018-12-09] MEDS: PANTOprazole 40 MG TAB PO SCH ×2 (08:10→20:44)
[2018-12-09] MEDS: metroNIDAZOLE 500 MG TAB PO SCH ×2 (14:30→21:52)
[2018-12-09] MEDS: ACETAMINOPHEN SOL 650 MG/20.3 ML UDC PO PRN (17:08)
[2018-12-09] MEDS: CIPROFLOXACIN 500 MG TAB PO SCH (20:45)
[2018-12-10] MEDS: CHECK CLONIDINE PATCH PLACEMENT SCH ×3 (00:38→16:23)
[2018-12-10] MEDS: metroNIDAZOLE 500 MG TAB PO SCH ×3 (05:20→22:19)
[2018-12-10 05:40] LABS: Basophils # (auto) 0.07 K/uL (0-0.2); Basophils % (auto) 0.5 %; Eosinophils # (auto) 0.34 K/uL (0-0.5); Eosinophils % (auto) 2.4 %; Hematocrit (blood only) 29.2 % (42-52); Hemoglobin 10.1 g/dL (14.0-18.0); Immature Granulocytes # (auto) 0.07 K/uL (0.00-0.02); Immature Granulocytes % (auto) 0.5 %; Lymphocytes # (auto) 1.91 K/uL (1.2-3.4); Lymphocytes % (auto) 13.6 %; Mean Corpuscular Hgb Conc 34.6 g/dL (32-36); Mean Corpuscular Volume 86.9 fL (80-100); Mean Platelet Volume 8.3 fL (7.4-10.4); Monocytes # (auto) 1.19 K/uL (0.11-0.59); Monocytes % (auto) 8.5 %; Neutrophils # (auto) 10.44 K/uL (1.4-6.5); Neutrophils % (auto) 74.5 %; Platelet Count 762 K/uL (130-400); RDW Coefficient of Variation 15.4 % (11.5-14.5); RDW Standard Deviation 49.9 fL (36.4-46.3); Red Blood Count 3.36 M/uL (4.7-6.1); White Blood Count 14.02 K/uL (4.8-10.8)
[2018-12-10 06:07] LABS: Calcium 8.9 mg/dl (8.5-10.1); Creatinine Clr Calc Pharmacy 146.5 ml/min; Est GFR (African American) 143.6; Est GFR (Non-African American) 123.9; Potassium 3.4 mmol/L (3.5-5.1)
[2018-12-10] MEDS: OXYCODONE HCL IR 5 MG TAB (IMMEDIATE RELEASE) PO PRN ×3 (08:03→21:41)
[2018-12-10] MEDS: ENOXAPARIN INJ 40 MG/0.4 ML SYR SQ SCH (08:04)
[2018-12-10] MEDS: MULTI VIT W/MINERALS LIQUID 15 ML UDP NG SCH (08:04)
[2018-12-10] MEDS: FOLIC ACID 1 MG TAB PO SCH (08:04)
[2018-12-10] MEDS: PANTOprazole 40 MG TAB PO SCH ×2 (08:04→20:33)
[2018-12-10] MEDS: CIPROFLOXACIN 500 MG TAB PO SCH ×2 (08:04→20:32)
[2018-12-10] MEDS ORDERED: POTASSIUM CHLORIDE 20 MEQ TABCR PO SCH (08:30)
[2018-12-10] MEDS ORDERED: Nursing to Pharmacy Communication ONE (09:35)
[2018-12-10] MEDS: POTASSIUM CHLORIDE PWD 20 MEQ PACK PO SCH ×2 (13:06→17:51)
--- NOTE | 2018-12-10 14:56 | Family Medicine Progress Note ---
Date of Service December 10, 2018 Assessment & Plan (1) Esophageal tear: Aaron is a 53-year-old male who presented with left lower extremity pain and difficulty weightbearing 2/2 left femoral neck fracture now S/P ORIF. His hospital course was complicated by delirium tremens now improved. He e xperienced a dysphagia and an esophageal tear, improving as noted below Esophageal tear Following breakfast on 12/05 he developed strong 8/10 low chest�high abdomen pain which did not improve with sublingual nitro or morphine 2 mg IV. EKG was obtained and showed T wave inversions new compared to his last EKG in August. Cardiology was consulted. Troponins were negative, his presentation was not cardiac in origin and and he underwent an EGD and CT which showed an esophageal tear without perforation. No free air on CT. During his EGD above esophageal stenosis/stricture was noted and was dilated during the procedure. See below. Will be critical that he is able to be compliant with his pharmacotherapy as above following discharge. He has had difficulty affording medications in the past, will be in close contact with GI on follow-up. �GI was consulted. Full liquid diet until 12/13 followed by a soft diet until repeat EGD in 4 weeks. He should remain on Protonix 40 mg twice daily by mouth started 12/08 to be continued for 3 months. Once his esophageal tear heals he should be placed on inhaled steroid therapy to prevent esophagitis. - Flagyl 500 mg every 8 hours, Cipro 500 mg twice daily until 12/12 Left femoral neck fracture S/P ORIF 11/25/2018 POD 13 He will require extensive rehab. PT recommended SNF ( 6-clicks with 43% functional loss). Placement is currently an issue given that he has been discharged from several facilities related to his alcohol use. Planning ongoing. �Surgery Consulted. Recommend allowing full range of motion left hip, knee, and ankle. No hip precautions needed. -Follow-up appointment scheduled with Dr Haynes in 4wks. If needs changed please call [phone]. -Surgery signed off -PT/OT to continue to see now that acute issues above have been managed. ?Left Femoral Hernia - Tender, reducible mass palpable at inferiormedial border of L inguinal ligament. - US limited groin to assess for femoral vs inguinal hernia. If femoral, would benefit from elective repair. - No signs of incarceration at this time Aspiration event with dysphagia Aaron had been n.p.o. out of concern for the inability to swallow safely. His first fluoroscopy showed hernan aspiration and he was kept n.p.o. with nutrition through NGT. After repeat fluoroscopy HIGHBALLER recommended slippery diet but noted that he had poor swallow mechanics. Following a meal he developed chest pain as noted and managed above. He had clinically relevant esophageal stenoses/strictures which were dilated as noted above. He appears to have improved swallow mechanics and is not having any difficulty liquids since procedure. - Continue management and food recommendations as noted above - No sign of PNA at this time Severe alcohol use disorder; delirium tremens (resolved) Placed on phenobarbital protocol, gradually weaned and did well, Downgraded from ICU status 11/30/2018, There was concern for Warnicke's encephalopathy, s/p tx with thiamine 500mg TID. He remains alert, answers questions appropriately today - No verices noted on EGD, but EtoH is potentially very harmful especially at this time given his esophageal tear. - AAOx4 Pain control: Oxycodone 5-10mg PRN Q6H DVT Prophylaxis: Lovenox 40 mg daily Disposition: Awaiting placement Supervising Physician Co-Signing Physician Notes I personally examined the patient and verified all das points of history and exam, discussed case, and agree with decision making with Dr Arellano. feeling ok. no new complaints. US reviewed with pt. vitals noted nad breathing unlabored no pallor or icterus. no focal neuro deficits hip fx, esophageal tear - now more stable. awaiting rehab placement. otherwise as above Subjective Aaron reports he feels tired today from being woken up, but otherwise does not feel "too bad". He has noticed some aching in his left thigh and left groin today. He has not had any fevers, chills, shortness of breath, chest pain, chest pressure. He is tolerating a full liquid diet today without difficulty. He has not had heartburn, difficulty swallowing, cough, stomach pain, abdominal pain today. He recognizes that he has lost a lot of strength and that we are pending acceptance waiting to hear about potential rehab facility options. No other questions today Review of Systems Review of Systems: Constitutional: Denies fever, chills, malaise Eyes: Denies vision change ENT: Denies sore throat. Endorses hearing loss, chronic Cardiovascular: Denies Chest pain, chest pressure, palpitations, extremity swelling Respiratory: Denies shortness of breath, sputum production, difficulty breathing. No cough today. Gastrointestinal: Denies stomach pain, nausea. Genitourinary: Denies pain with urination. Endorses L groin discomfort. Musculoskeletal: Endorses leg weakness and difficulty standing/walking with PT, improved from prior. Endorses R thigh ache. Physical Exam Physical Exam: General: A&Ox3. Hard of hearing. Cooperative, comfortable. HEENT: Atraumatic, normocephalic. Pulm: Normal air movement, CTAB A&P. -wheezes, -rales, -rhonchi. Symmetrical chest rise. No increase work of breathing. No respiratory distress. Cardiac: RRR, -mrg. Radial pulses intact and symmetrical. Abdominal: No abdominal tenderness. nondistended, soft. BS present. : Reducible, tender L groin hernia at the inferiormedial aspect of the inguinal ligament. No signs of erythema, warmth, incarceration. Results & Data Vital Signs (Past 12 Hours) Vital Signs Temp Pulse Resp BP Pulse Ox 12/10/18 06:25 36.8 C 84 16 150/83 H 93 12/09/18 23:14 36.9 C 71 16 123/77 97 Resident Activity Tracking Resident Involvement: Resident Care Provided Care Provided: Adult Hospital Medicine
--- NOTE | 2018-12-10 16:49 | Ultrasound Report ---
US abdomen ltd hernia HISTORY: Pain. Hernia. suspect L femoral hernia. COMPARISON: None. FINDINGS: Ultrasonic evaluation of the left inguinal region confirms the presence of a fat-containing left inguinal hernia. This is nonreducible. It is also nonbowel containing. IMPRESSION: Nonreducible fat-containing left inguinal hernia. No evidence for bowel containment The above report was generated using voice recognition software. It may contain grammatical, syntax or spelling errors. Electronically signed by: Keven Vann M.D. 12/10/2018 4:48 PM
[2018-12-10] MEDS ORDERED: MAGNESIUM OXIDE 400 MG TAB PO SCH (21:00)
[2018-12-10] MEDS: MAGNESIUM OXIDE 400 MG TAB PO SCH (22:19)
[2018-12-11] MEDS: CHECK CLONIDINE PATCH PLACEMENT SCH ×4 (00:04→23:16)
[2018-12-11] MEDS: metroNIDAZOLE 500 MG TAB PO SCH ×3 (05:58→21:59)
[2018-12-11] MEDS: MULTI VIT W/MINERALS LIQUID 15 ML UDP NG SCH (08:19)
[2018-12-11] MEDS: PANTOprazole 40 MG TAB PO SCH ×2 (08:19→21:59)
[2018-12-11] MEDS: FOLIC ACID 1 MG TAB PO SCH (08:20)
[2018-12-11] MEDS: ENOXAPARIN INJ 40 MG/0.4 ML SYR SQ SCH (08:20)
[2018-12-11] MEDS: CIPROFLOXACIN 500 MG TAB PO SCH ×2 (08:20→21:59)
[2018-12-11 08:24] LABS: Basophils # (auto) 0.07 K/uL (0-0.2); Basophils % (auto) 0.7 %; Eosinophils # (auto) 0.37 K/uL (0-0.5); Eosinophils % (auto) 3.9 %; Hematocrit (blood only) 29.4 % (42-52); Hemoglobin 9.7 g/dL (14.0-18.0); Immature Granulocytes # (auto) 0.04 K/uL (0.00-0.02); Immature Granulocytes % (auto) 0.4 %; Lymphocytes # (auto) 2.09 K/uL (1.2-3.4); Lymphocytes % (auto) 21.7 %; Mean Corpuscular Volume 88.6 fL (80-100); Mean Platelet Volume 8.2 fL (7.4-10.4); Monocytes # (auto) 1.08 K/uL (0.11-0.59); Monocytes % (auto) 11.2 %; Neutrophils # (auto) 5.96 K/uL (1.4-6.5); Neutrophils % (auto) 62.1 %; Platelet Count 720 K/uL (130-400); RDW Coefficient of Variation 15.6 % (11.5-14.5); RDW Standard Deviation 50.8 fL (36.4-46.3); Red Blood Count 3.32 M/uL (4.7-6.1); White Blood Count 9.61 K/uL (4.8-10.8)
[2018-12-11] MEDS ORDERED: RANITIDINE HCL SYRUP 150 MG/10 ML UDC PO ONE (08:28)
[2018-12-11 08:57] LABS: BUN Creatinine Ratio 5.4 (10-20); Creatinine Clr Calc Pharmacy 149.6 ml/min; Est GFR (African American) 144.8; Est GFR (Non-African American) 124.9; Magnesium 1.9 mg/dl (1.8-2.4); Potassium 4.2 mmol/L (3.5-5.1)
--- NOTE | 2018-12-11 12:54 | CT Scan Report ---
CT SCAN OF THE ABDOMEN WITHOUT IV CONTRAST CLINICAL HISTORY: Reported history of esophageal tear. Generalized abdominal pain. COMPARISON STUDY: Abdominal CT dated 02/15/2017. TECHNIQUE: CT scan of the abdomen is performed from the lung bases to the pelvic inlet. Images are re viewed in the axial, sagittal, and coronal planes. IV contrast was not administered for this examinat ion as per the referring clinician. Note that the examination was performed in suboptimal fashion wit hout IV contrast. Oral contrast was utilized. A dose lowering technique was utilized adhering to the principles of ALARA. FINDINGS: Lung bases: The heart is top normal in size and there is trace pericardial effusion. There is bibasil ar scarring/atelectasis. No airspace consolidation is seen. Trace pleural effusions are noted. No pne umomediastinum is seen at the lung bases. Liver: The unenhanced liver is normal in size, contour, and attenuation. There is no intrahepatic regis iary ductal dilatation. Gallbladder: Unremarkable. Spleen: Normal in size and attenuation. Pancreas: Unremarkable. Adrenal glands: Unremarkable. Kidneys: The unenhanced kidneys are normal in size and without hydronephrosis. There are no renal yesica culi identified. There is no evidence of contour deforming renal mass lesion. Abdominal vasculature: The abdominal aorta is normal in course and caliber noting advanced atheroscle rotic calcification. Stomach and bowel: The stomach is normal in configuration. No extraluminal contrast is identified inv olving the distal esophagus or the stomach. There is no evidence of bowel obstruction. Peritoneum: There is no intraperitoneal free air or abdominal ascites. There is a small fat-containin g umbilical hernia. Lymphadenopathy: None. Skeletal structures: The skeletal structures are osteopenic. There are compression deformities of T12 , L1, L2, and L4. No lytic or blastic lesions are seen. IMPRESSION: 1. The stomach is normal in configuration. No extraluminal contrast is identified adjacent to the dis regina esophagus or the stomach to suggest perforation. 2. Trace pleural effusions. 3. No intraperitoneal free air is seen below the diaphragm. No pneumomediastinum is identified at the lung bases. Electronically signed by: Froy Lau M.D. 12/11/2018 12:52 PM
--- NOTE | 2018-12-11 13:04 | CT Scan Report ---
CT chest wo con CT DOSE: 465.89 mGy.cm HISTORY: concern esophageal tear; w/ Ct-Ab+oral contrast TECHNIQUE: Multiaxial CT images of the chest were performed without contrast. A dose lowering techni que was utilized adhering to the principles of ALARA. COMPARISON: Chest CT 12/05/2018. FINDINGS: The esophagus is normal in course and caliber. No extraluminal contrast to suggest esophage al tear. No pneumomediastinum. Aneurysmal dilatation of the ascending thoracic aorta measuring up to 4.6 cm in diameter at the aortic root. This remains unchanged. The heart is normal in size. Trace regis ateral pleural effusions and a trace pericardial effusion. Multiple subcentimeter mediastinal lymph n odes remain stable. Multiple old, healed left-sided rib fractures. No pneumothorax. The central airwa ys are patent. Bibasilar linear densities favor subsegmental atelectasis. Multiple small faint scatte red ground glass densities are seen throughout the lungs. Mild bronchial wall thickening persists. Th ere patchy densities at the bases of the bilateral lower lobes. IMPRESSION: 1. No extraluminal contrast or pneumomediastinum to suggest esophageal tear. 2. No change in the 4.6 cm ascending thoracic aortic aneurysm. 3. Multiple small faint scattered groundglass densities seen throughout the lungs with mild bronchial wall thickening. This may represent a low-grade pneumonitis. Electronically signed by: Jigar Cassidy M.D. 12/11/2018 1:03 PM
--- NOTE | 2018-12-11 13:39 | Family Medicine Progress Note ---
Date of Service December 11, 2018 Assessment & Plan (1) Esophageal tear: Aaron is a 53-year-old male who presented with left lower extremity pain and difficulty weightbearing 2/2 left femoral neck fracture now S/P ORIF. His hospital course was complicated by delirium tremens now improved. He ex perienced a dysphagia and an esophageal tear, improving as noted below Esophageal tear Following breakfast on 12/05 he developed strong 8/10 low chest�high abdomen pain which did not improve with sublingual nitro or morphine 2 mg IV. EKG was obtained and showed T wave inversions new compared to his last EKG in August. Cardiology was consulted. Troponins were negative, his presentation was not cardiac in origin and and he underwent an EGD and CT which showed an esophageal tear without perforation. No free air on CT. During his EGD above esophageal stenosis/stricture was noted and was dilated during the procedure. See below. Will be critical that he is able to be compliant with his pharmacotherapy as above following discharge. He has had difficulty affording medications in the past, will be in close contact with GI on follow-up. �GI was consulted. Full liquid diet until 12/13 followed by a soft diet until repeat EGD in 4 weeks. He should remain on Protonix 40 mg twice daily by mouth started 12/08 to be continued for 3 months. Once his esophageal tear heals he should be placed on inhaled steroid therapy to prevent esophagitis. - Flagyl 500 mg every 8 hours, Cipro 500 mg twice daily until 12/12 - He had a recurrence of his symptoms this morning, and continued to feel uncomfortable after morning medications including 150mg zantac. CT-Chest/Abdomen with oral contrast for esophageal evaluation was performed. -CT showed the stomach is normal in configuration, No extraluminal contrast was identified adjacent to the distal esophagus or the stomach to suggest perforation, no intraperitoneal free air was seen below the diaphragm. No pneumomediastinum at the lung bases. No indication of esophageal perforation at this time. Will continue treatment as otherwise noted. Left femoral neck fracture S/P ORIF 11/25/2018 POD 13 He will require extensive rehab. PT recommended SNF (6-[facility] with 43% functional loss). Placement is currently an issue given that he has been discharged from several facilities related to his alcohol use. Planning ongoing. �Surgery Consulted. Recommend allowing full range of motion left hip, knee, and ankle. No hip precautions needed. -Follow-up appointment scheduled with Dr Haynes in 4wks. If needs changed please call [phone]. -Surgery signed off -PT/OT to continue to see now that acute issues above have been managed. Left Inguinal Hernia - Mildly tender, reducible mass palpable at medial border of L inguinal ligament. - US limited groin shows inguinal hernia. May followup as outpatient and address repair electively vs watchful waiting. Aspiration event with dysphagia Aaron had been n.p.o. out of concern for the inability to swallow safely. His first fluoroscopy showed hernan aspiration and he was kept n.p.o. with nutrition through NGT. After repeat fluoroscopy ETCHER MACHINE recommended slippery diet but noted that he had poor swallow mechanics. Following a meal he developed chest pain as noted and managed above. He had clinically relevant esophageal stenoses/strictures which were dilated as noted above. He appears to have improved swallow mechanics and is not having any difficulty liquids since procedure. - Continue management and food recommendations as noted above - No sign of PNA at this time Severe alcohol use disorder; delirium tremens (resolved) Placed on phenobarbital protocol, gradually weaned and did well, Downgraded from ICU status 11/30/2018, There was concern for Warnicke's encephalopathy, s/p tx with thiamine 500mg TID. He remains alert, answers questions appropriately today - No verices noted on EGD, but EtoH is potentially very harmful especially at this time given his esophageal tear. - AAOx4 Pain control: Oxycodone 5-10mg PRN Q6H DVT Prophylaxis: Lovenox 40 mg daily Disposition: Awaiting placement Supervising Physician Co-Signing Physician Notes I personally examined the patient and verified all das points of history and exam, discussed case, and agree with decision making with Dr Arellano. feeling ok. Had chest pain earlier, CT fortunately reassuring, pain resolved. vitals noted nad breathing unlabored no pallor or icterus. no focal neuro deficits hip fx, esophageal tear -CT without any evidence of leak or extravasation. Pain improved. Awaiting rehab placement. otherwise as above Subjective Aaron reports he woke up with increased recurrent pain similar to what he felt like when he first tore his esophagus. He has not yet had breakfast. His pain was there when he woke up. He denies coughing fits or vomiting this morning. He has not had any fever, chills, sweats, diarrhea, constipation, melena, blood per rectum. He reports he just feels uncomfortable, and is concerned that he might have re-torn his esophagus. Review of Systems Review of Systems: Constitutional: Denies fever, chills, malaise Eyes: Denies vision change ENT: Denies sore throat. Endorses hearing loss, chronic Cardiovascular: Endorses stomach/low chest pain as noted in HPI. Otherwise denies Denies Chest pain, chest pressure, palpitations, extremity swelling Respiratory: Denies shortness of breath, sputum production, difficulty breathing. No cough today. Gastrointestinal: Endorses stomach pain as noted above, denies N/V/D/C. Genitourinary: Denies pain with urination. Endorses L groin discomfort unchanged from prior. Musculoskeletal: Endorses leg weakness and difficulty standing/walking with PT. Physical Exam Physical Exam: General: A&Ox3. Hard of hearing. Cooperative, comfortable. HEENT: Atraumatic, normocephalic. Pulm: Normal air movement, CTAB A&P. -wheezes, -rales, -rhonchi. Symmetrical chest rise. No increase work of breathing. No respiratory distress. Cardiac: RRR, -mrg. Radial pulses intact and symmetrical. Abdominal: Epigastrum mildly tender to palpation without rebound or rigidity. No other abdominal tenderness. Nondistended, soft. BS present. Results & Data Vital Signs (Past 12 Hours) Vital Signs Temp Pulse Resp BP Pulse Ox 12/11/18 06:24 36.6 C 82 16 154/87 H 96 Resident Activity Tracking Resident Involvement: Resident Care Provided Care Provided: Adult Hospital Medicine
[2018-12-11] MEDS: OXYCODONE HCL IR 5 MG TAB (IMMEDIATE RELEASE) PO PRN ×2 (14:41→22:03)
[2018-12-11] MEDS: MAGNESIUM OXIDE 400 MG TAB PO SCH (21:59)
[2018-12-12] MEDS: metroNIDAZOLE 500 MG TAB PO SCH ×3 (06:01→21:01)
[2018-12-12] MEDS: OXYCODONE HCL IR 5 MG TAB (IMMEDIATE RELEASE) PO PRN ×3 (07:52→21:01)
[2018-12-12] MEDS: FOLIC ACID 1 MG TAB PO SCH (07:52)
[2018-12-12] MEDS: CIPROFLOXACIN 500 MG TAB PO SCH ×2 (07:52→21:01)
[2018-12-12] MEDS: PANTOprazole 40 MG TAB PO SCH ×2 (07:52→19:28)
[2018-12-12] MEDS: MULTI VIT W/MINERALS LIQUID 15 ML UDP NG SCH (07:53)
[2018-12-12] MEDS: CHECK CLONIDINE PATCH PLACEMENT SCH ×3 (07:53→23:48)
[2018-12-12] MEDS: ENOXAPARIN INJ 40 MG/0.4 ML SYR SQ SCH (07:53)
--- NOTE | 2018-12-12 18:20 | Family Medicine Progress Note ---
Date of Service December 12, 2018 Assessment & Plan (1) Traumatic closed nondisplaced fracture of neck of left femur: Aaron is a 53-year-old male who presented with left lower extremity pain and difficulty weightbearing 2/2 left femoral neck fracture now S/P ORIF. His hospital course was complicated by delirium tremens now improved. He experienced a dysphagia and an esophageal tear, improving as noted below Esophageal tear Following breakfast on 12/05 he developed strong 8/10 low chest�high abdomen pain which did not improve with sublingual nitro or morphine 2 mg IV. EKG was obtained and showed T wave inversions new compared to his last EKG in August. Cardiology was consulted. Troponins were negative, his presentation was not cardiac in origin and and he underwent an EGD and CT which showed an esophageal tear without perforation. No free air on CT. During his EGD above esophageal stenosis/stricture was noted and was dilated during the procedure. See below. Will be critical that he is able to be compliant with his pharmacotherapy as above following discharge. He has had difficulty affording medications in the past, will be in close contact with GI on follow-up. �GI was consulted. Full liquid diet until 12/13 followed by a soft diet until repeat EGD in 4 weeks. He should remain on Protonix 40 mg twice daily by mouth started 12/08 to be continued for 3 months. Once his esophageal tear heals he should be placed on inhaled steroid therapy to prevent esophagitis. - Flagyl 500 mg every 8 hours, Cipro 500 mg twice daily until 12/12 -CT yesterday showed the stomach is normal in configuration, No extraluminal contrast was identified adjacent to the distal esophagus or the stomach to suggest perforation, no intraperitoneal free air was seen below the diaphragm. No pneumomediastinum at the lung bases. No indication of esophageal perforation. - Currently stable Left femoral neck fracture S/P ORIF 11/25/2018 POD 13 He will require extensive rehab. PT recommended SNF (6-[facility] with 43% functional loss). Placement is currently an issue given that he has been discharged from several facilities related to his alcohol use. Planning ongoing. �Surgery Consulted. Recommend allowing full range of motion left hip, knee, and ankle. No hip precautions needed. -Follow-up appointment scheduled with Dr Haynes in 4wks. If needs changed please call [phone]. -Surgery signed off -Will require rehab/physical therapy. Pending placement. Left Inguinal Hernia - Mildly tender, reducible mass palpable at medial border of L inguinal ligament. - US limited groin shows inguinal hernia. May followup as outpatient and address repair electively vs watchful waiting. Aspiration event with dysphagia Aaron had been n.p.o. out of concern for the inability to swallow safely. His first fluoroscopy showed hernan aspiration and he was kept n.p.o. with nutrition through NGT. After repeat fluoroscopy MRI ASSISTANT recommended slippery diet but noted that he had poor swallow mechanics. Following a meal he developed chest pain as noted and managed above. He had clinically relevant esophageal stenoses/strictures which were dilated as noted above. He appears to have improved swallow mechanics and is not having any difficulty liquids since procedure. - Continue management and food recommendations as noted above - No sign of PNA at this time Severe alcohol use disorder; delirium tremens (resolved) Placed on phenobarbital protocol, gradually weaned and did well, Downgraded from ICU status 11/30/2018, There was concern for Warnicke's encephalopathy, s/p tx with thiamine 500mg TID. He remains alert, answers questions appropriately today - No verices noted on EGD, but EtoH is potentially very harmful especially at this time given his esophageal tear. - AAOx4 Pain control: Oxycodone 5-10mg PRN Q6H DVT Prophylaxis: Lovenox 40 mg daily Disposition: Awaiting placement. [facility] denied acute rehab. They will approve SNF (But no local SNF facilities will accept Pt.) (2) DTs (delirium tremens): (3) DVT prophylaxis: Supervising Physician Co-Signing Physician Notes I personally examined the patient and verified all das points of history and exam, discussed case, and agree with decision making with Dr Arellano. feeling ok. No new complaints. Was waiting on insurance, later called that they denied. Called to placed peer to peer review. vitals noted nad breathing unlabored no pallor or icterus. no focal neuro deficits hip fx, esophageal tear -given the complexity of the situation, multidisciplinary approach of PT/OT and speech therapy appears to be warranted given recovery from hip fracture, his overall suspect functional status, and his degree of dysphagia. This further complicated by the complexity of healing from his esophageal tear which would be better benefited from close physician follow- up. Hopefully the peer to peer physician will understand his situation and make the rational decision of approving rehab, as this appears to be significantly in the patient's best interest on multiple grounds. otherwise as above Subjective Aaron reports he is tolerating his meals well today, and does not have any abdominal or stomach pain. He does feel like his left hip and leg are getting more stiff over time. Otherwise denies pain, fevers, chills. No questions or concerns at time of visit this morning. He is eating comfortably without nausea. Review of Systems Review of Systems: Constitutional: Denies fever, chills, malaise Eyes: Denies vision change ENT: Denies sore throat. Endorses hearing loss, chronic Cardiovascular: Denies Chest pain, chest pressure, palpitations, extremity swelling Respiratory: Denies shortness of breath, sputum production, difficulty breathing. No cough today. Gastrointestinal: No abdominal pain today, denies N/V/D/C. Genitourinary: Denies pain with urination. Endorses L groin discomfort unchanged from prior. Musculoskeletal: Endorses leg weakness Physical Exam Physical Exam: General: A&Ox3. Hard of hearing. Cooperative, comfortable. HEENT: Atraumatic, normocephalic. Pulm: Normal air movement, CTAB A&P. -wheezes, -rales, -rhonchi. Symmetrical chest rise. No increasedwork of breathing. No respiratory distress. Cardiac: RRR, -mrg. Radial pulses intact and symmetrical. Abdominal: NT. Nondistended, soft. BS present. Results & Data Vital Signs (Past 12 Hours) Vital Signs Temp Pulse Pulse Resp BP BP Pulse Ox 12/12/18 15:23 36.8 C 72 16 93/58 L 97 12/12/18 11:40 96/61 L 12/12/18 11:39 95/60 L 12/12/18 11:36 36.9 C 72 18 101/61 97 12/12/18 10:37 103/64 12/12/18 10:35 93/55 L 12/12/18 07:46 36.7 C 72 18 120/78 96 Resident Activity Tracking Resident Involvement: Resident Care Provided Care Provided: Adult [facility] Medicine
[2018-12-12] MEDS: MAGNESIUM OXIDE 400 MG TAB PO SCH (21:00)
[2018-12-13] MEDS: ACETAMINOPHEN SOL 650 MG/20.3 ML UDC PO PRN ×2 (00:25→13:48)
[2018-12-13] MEDS: metroNIDAZOLE 500 MG TAB PO SCH ×2 (05:51→13:45)
[2018-12-13] MEDS: CHECK CLONIDINE PATCH PLACEMENT SCH (08:45)
[2018-12-13] MEDS: OXYCODONE HCL IR 5 MG TAB (IMMEDIATE RELEASE) PO PRN (08:49)
[2018-12-13] MEDS: ENOXAPARIN INJ 40 MG/0.4 ML SYR SQ SCH (08:49)
[2018-12-13] MEDS: PANTOprazole 40 MG TAB PO SCH (08:49)
[2018-12-13] MEDS: FOLIC ACID 1 MG TAB PO SCH (08:50)
[2018-12-13] MEDS: MULTI VIT W/MINERALS LIQUID 15 ML UDP NG SCH (08:50)
[2018-12-13] MEDS: CIPROFLOXACIN 500 MG TAB PO SCH (08:50)
[2018-12-13] MEDS: cloNIDine HCL 0.1 MG/24 HR TRANSDERM SYS TD SCH (08:50)
--- NOTE | 2018-12-13 10:32 | Discharge Summary ---
Date of Service December 13, 2018 Admission HPI Per Admitting Provider 53 yo male with a history of Etoh abuse, HTN and homelessness presents with intractable left hip pain. He states that the pain began 2 days ago. He describes the pain as a constant, dull, 8/10 pain, worse with weightbearing and ambulating. He says that he is unable to walk currently. He does endorse pain in his left knee as well. He denies injury, falls, redness, swelling. He denies fevers. The patient has a H history of a fracture to his right hip s/p ORIF. ROS Const; denies fever, chills, NS CV; Denies CP, palp, worsening LE edema Pulm; Denies SOB, cough, wheezing GI; denies ab pain, n/v/d Admission Exam Per Admitting Provider Constitutional: WD/WN, vitals as above Eyes: PERRL, conjunctivae normal, anicteric sclerae ENMT: external ear and nose normal, oropharynx normal Neck: trachea midline, no thyromegaly Respiratory: normal respiratory effort, lungs clear to auscultation Cardiovascular: RRR, no murmur, no edema Gastrointestinal (Abdomen): normal bowel sounds, soft, nontender, no hepatosplenomegaly Musculoskeletal: no cyanosis or clubbing, extremities motor strength 5/5 Head/Neck/Chest: normocephalic and head atraumatic No tenderness with palpation of the left hip, exquisite tenderness with passive range of motion. The patient refuses active range of motion and weightbearing testing 2/2 intractable pain. Skin: +2 pitting edema BL LE, scaly skin of BL LE Principal Diagnosis Esophageal tear Left hip fracture status post ORIF Delirium tremens Discharge Exam General: A&Ox3. Hard of hearing. Cooperative, comfortable. HEENT: Atraumatic, normocephalic. Pulm: Normal air movement, CTAB A&P. -wheezes, -rales, -rhonchi. Symmetrical chest rise. No increased work of breathing. No respiratory distress. Cardiac: RRR, -mrg. Radial pulses intact and symmetrical. Abdominal: NT. Nondistended, soft. BS present. Extremity: L hip with surgical incision well healed and without erythema/exudate/dehiscence. Discharge Data Allergies Allergy/AdvReac Type Severity Reaction Status Date / Time Penicillins AdvReac Mild TIRED Verified 10/28/18 22:51 Consultations 11/24/18 00:31 ED Decision to Admit Stat 11/24/18 02:43 Consult Case Management - Discharge Planning Routine 11/24/18 10:38 Consult Orthopedic Surgery Routine 11/25/18 17:17 Consult Case Management - Discharge Planning Routine 12/05/18 12:01 Consult Gastroenterology Stat 12/05/18 13:47 Consult Cardiology Routine Procedures Performed Operation Date: 11/25/18 12:00 Actual Procedures p Left Open reduction Internal fixation Dynamic Hip Screw(Left) - Romeo Haynes MD Operation Date: 12/05/18 13:30 Actual Procedures p Esophagogastroduodenoscopy for Food Bolus(Not Applicable) - Mikki Flores MD Ordered Studies 11/23/18 20:12 CT pelvis wo con Stat 11/24/18 17:12 FL inj majr joint sh,hip,kn LT Stat 11/25/18 14:05 FL fluoroscopy <1hr Routine FL hip LT 2-3V Routine 11/25/18 21:42 MR hip LT wo con Urgent 11/29/18 13:15 FL video swallow Routine 12/04/18 13:15 FL video swallow Routine 12/05/18 18:07 CT chest wo con Stat 12/10/18 14:44 US abdomen ltd hernia Routine 12/11/18 10:56 CT abdomen w oral con only Urgent 12/11/18 11:18 CT chest wo con Urgent Hospital Course (1) Traumatic closed nondisplaced fracture of neck of left femur: Aaron is a 53-year-old male who presented to the hospital with left lower extremity intractable pain and inability to bear weight and who was subsequently admitted for a left femoral neck fracture which underwent surgical repair. His hospital course was complicated by the development of delirium tremens on a background of severe alcohol abuse for which he was admitted to the ICU. Following downgrade from the ICU his course was further complicated by dysphagia and an esophageal tear. Once medically stabilized he required discharge to subacute rehab. Please note to do items are bolded following each section below. Left femoral neck fracture On admission Aaron had intractable left hip pain and inability to bear weight. Initial plain films of the left femur and pelvis did not show any bony abnormalities or fracture. CT scan also did not show acute fracture, but did note old internally fixated right hip fracture with ossification. Orthopedics was consulted and given his severe pain a ultrasound-guided aspiration of the hip was performed which returned bloody fluid without signs of septic arthritis. MRI was performed and revealed a nondisplaced femoral neck fracture. Aaron underwent uncomplicated left femoral open reduction and internal fixation with a dynamic hip screw. Following surgery he became increasingly restless and agitated with hallucinations and was transferred to the ICU for delirium tremens and treated as noted below. From an orthopedic standpoint the rest of his hospitalization was uncomplicated, and following downgrade from the ICU he was able to ambulate with physical/occupational therapy but was noted to have strength loss and unsteady gait and was recommended for subacute rehab. He received Tylenol, 5-10 mg oxycodone every 6 hours, and ice as needed for pain and was allowed for full range of motion and weightbearing as tolerated with assistance of a walker per orthopedics. He was discharged to subacute rehab with a follow-up appointment to be scheduled with Dr. Haynes's office around the - week of December. To do: Schedule follow-up appointment with Dr. Haynes's orthopaedic office for - of December. Continue rehab. Wean pain control. Delirium tremens in the setting of severe alcohol abuse Prior to admission Aaron was intermittently homeless and had a history of alcohol abuse including 10-12 beers per sitting throughout the week. He also had a history of esophageal strictures with multiple dilations as noted below. Following ORIF as noted above he became agitated, restless, tremulous, and developed altered mental status with hallucinations. He was transferred to the ICU for management of delirium tremens. In the ICU he received folic acid and high-dose thiamine repletion, was placed on Zyprexa for neuroleptic treatment of visual hallucinations, and was sedated with dexmedetomidine and clonidine. Phenobarbital protocol with baseline plus breakthrough dosing was initiated. Precedex was weaned, followed by phenobarbital. He was downgraded from ICU status after 5 days and was transferred to the floor. He did not have any further symptoms of withdrawal including tremulousness, hallucinations, or agitation for the remainder of his hospitalization. It was discussed with him that alcohol consumption was extremely dangerous given his esophageal tear and strictures as noted below. He would benefit from a substance rehabilitation program, however he was not a candidate at time of discharge due to his acute medical issues needing to be addressed first. To do: Follow clinically for high risk of alcohol abuse, recommend treatment program once medically stable and able to be accepted. While he had no esophageal varices on EGD he had very poor quality tissue in his esophagus and it is very dangerous for him to consume alcohol at this time. Esophageal tear in the setting of stricture and dysphagia Following downgrade from the ICU Aaron was noted to have wet and coarse breath sounds following a meal. He was made n.p.o. and CHANNEL OPENER was consulted, he was not able to safely swallow on CHANNEL OPENER evaluation and fluoroscopy studies. An NG was placed and he received nutrition through the NGT for several days with the hope that as he became stronger and recovered his swallow mechanics would improve. He became progressively agitated regarding his n.p.o. status, and was very insistent upon receiving a diet with poor insight into its potential to cause aspiration. He had a repeat fluoroscopy swallow study and CHANNEL OPENER recommended a slippery diet with aspiration precautions. Following his next meal he had a coughing fit in the sudden development of searing epigastric pain. He was again made n.p.o., and clinical exam and x-ray did not show any signs of aspiration pneumonia. EKG showed some T wave inversions so cardiology was consulted, but troponins remain negative and cardiology felt his presentation was unlikely to be cardiac in origin. Gastroenterology was consulted. A CT scan with oral contrast did not show any contrast extravasation or free air suggestive of esophageal perforation, but was suggestive of a partial thickness esophageal tear. An EGD was performed, and multiple esophageal strictures/stenoses were noted and required dilation during the procedure. He was found to have an esophageal tear without full-thickness perforation. He was treated with IV Protonix twice daily and a one-week course of ofloxacin and Flagyl for antibiotic prophylaxis. His IV PPI was converted to oral Protonix twice daily to be continued for 3 months. His diet was gradually increased to a pur�ed diet which he was to maintain until follow-up endoscopy with GI. He did not experience any more dysphagia following dilation of his esophageal strictures. He did experience a recurrence of his epigastric pain; repeat CT with oral contrast did not show any free air extravasation suggestive of perforation. He experienced symptom medic relief with a single dose of Zantac and then was continued on the plan as noted above. At time of discharge he was tolerating a pur�ed diet well, was able to take his medications without difficulty, and expressed an understanding that alcohol consumption was extremely dangerous to his esophageal tissue. He agreed to avoid alcohol consumption and understood the importance of taking his PPIs as directed. He was discharged to subacute rehab with follow-up to GI. To do: He will require a follow-up appointment with gastroenterology with a repeat EGD around the fourth week of December. He should remain on Protonix twice daily and should NOT have his diet advanced beyond pureed prior to followup with GI. He completed the recommended 1 week course of antibiotic prophylaxis during admission, and will not require antibiotics following discharge unless his clinical picture changes or worsens. DVT prophylaxis DVT prophylaxis was maintained with Lovenox 40 mg daily. He did not show any signs of DVT, clots, or pulmonary embolism during admission. Behavioral Disturbances Aaron has been intermittently homeless and has been kicked out of various rehab facilities and apartment complexes for behavioral and alcohol related issues. This was discussed with him during admission. He recognized the role of alcohol in his illness, but was evasive of discussions to remain abstinent. At the time of hospitalization would consider him between pre-contemplative and contemplative. Due to his intermittent homelessness, difficulty with transportation, and behavioral components follow-up for him is a major concern. GI expressed willingness to work with him and help make sure he gets his medications, and he expressed understanding of their importance and willingness to call and touch base if he had any difficulties. He does not have a primary care physician, and would benefit from a regular PCP to manage his multiple comorbidities. Left inguinal hernia During admission Aaron was noted to have some mild achy pain in his inguinal crease. On exam he was found to have a small nonincarcerated hernia. Ultrasound confirmed a nonincarcerated left inguinal hernia. This was discussed with patient who was agreeable to watchful observation. He was counseled on alarm symptoms of incarceration, and instructed to call his PCP or 911 should they develop. (2) DTs (delirium tremens): (3) Esophageal tear: (4) Alcohol use disorder, severe, dependence: (5) Adult failure to thrive: (6) Esophageal stenosis: Total Time Total Time Spent Total Time Spent (In Minutes): <30 Discharge Plan Discharge Items Patient Disposition: Transfer Inpatient Rehab Fac Reason For Visit: INTRACTABLE LEFT HIP PAIN Discharge Diagnosis: Left Femoral Neck Fracture Delerium Tremens Esophageal Tear without Perforation Condition: Good Discharge Goals: Decrease discomfort, Improve disease control, Improve nutritional status and Therapeutic intervention Activity: Per 'Additional Instructions' section Non-emergency contact: Primary Care Provider and Surgeon Call non-emergency contact if: you have any medication questions, your pain is not controlled, your pain is worsening, your pain is unusual for you, your pain is concerning for you, you have a fever, your wound has increased drainage and your wound pain has increased Follow-up/Referrals: Romeo Haynes MD [Physician] - 12/11/18 1:15 pm PCP,NO [Primary Care Provider] - Diet: See below Diet Texture: Pureed (blended smooth) Addtl Provider Instructions: You were seen in the hospital for a hip fracture which was surgically repaired on 11/25/2018. Following surgery he experienced severe alcohol withdrawal with delirium tremens and were admitted to the ICU until 11/30/2018. During your recovery you have difficulty swallowing and there was concern for aspiration events (food getting in your airway) and you were seen by GI. Following the development of stomach pain who had a camera placed down your esophagus for evaluation and were noted to have esophageal strictures which were dilated in addition to an esophageal tear. You have been placed on a strict diet and medication regimen to allow this to heal as noted below. Medications: You have been prescribed an anti-acid medication, pantoprazole (Protonix). Please take pantoprazole 40 mg twice daily by mouth until 03/10/2019. It is very important to take this medication as it will protect your esophagus from stomach acid. You received antibiotics during her hospital admission. You have not been discharged completed your antibiotics during hospitalization and have not been discharged on any outpatient antibiotics. If you develop any fever, chills, night sweats, or concern for infection please contact your primary care doctor or surgeon at the numbers noted below, or return to the emergency department if you are very concerned. You have been prescribed a pain medication, acetaminophen (Tylenol). You may take up to 650 mg of Tylenol every 4-6 hours as needed for hip pain. Do not exceed more than 3000 mg of Tylenol in any 24 hours. DO NOT TAKE TYLENOL while drinking alcohol as this can cause serious and irreversable damage to your liver. You have been prescribed a pain medication, oxycodone. You may take up to 5mg of oxycodone every 4-6 hours as needed for hip pain not controlled by tylenol/ice. This medication should be decreased at rehab and discontinued by time of discharge. Diet: You have been able to tolerate a soft diet during admission. Please continue to follow a soft diet (pur�es, soups, smoothies, etc.) until you have a follow-up endoscopy with gastroenterology in about 3 weeks. They will advise you when it is safe to begin eating more solid/firm foods. It is critically important that you DO NOT drink alcohol while your esophagus is healing. Appointments: A follow-up appointment will be scheduled for you with gastroenterology. You will also require a repeat endoscopy to assess the healing of your esophageal tear. If you do not receive confirmation of an appointment, or need to change your appointment, please call their office at [phone]. A follow-up appointment will be scheduled for you with Dr. Sorto, orthopedic surgery, for follow-up of your hip. If you do not receive confirmation of an appointment or need to change your appointment, please call his office at . You are being discharged to inpatient rehab as you have lost strength both due to your admission and surgery. You should have a follow-up appointment with your Primary care provider within a week of discharge. [facility] will identify a provider and schedule this appointment for you. Activity instructions: Per orthopedic surgery please follow following activity guidelines "Weight bear as tolerated left hip Full range of motion allowed left hip, left knee and left ankle No hip precautions necessary. Use walker to assist with ambulation. Ice to left hip as needed for pain/swelling Advance activities as tolerated. Follow up with Dr. Haynes as scheduled." Prescriptions: New pantoprazole 40 mg Tablet,Delayed Release (Dr/Ec) 40 mg PO BID 90 Days Qty: 180 RF: 0 acetaminophen 325 mg/10.15 mL solution 650 mg PO Q4H PRN (Reason: pain) Qty: 1015 RF: 0 oxycodone 5 mg Tablet 5 - 10 mg PO Q6H PRN (Reason: pain) 7 Days Qty: 1 RF: 0 No Action No Known Home Medications RF: 0 Stand-Alone Forms: [employer], Opioid Pain Management [facility]/Other Patient Handouts: Surgery Fx Hip Hospital After Discharge Orders: Discharge Order (Routine); Ordered 12/13/18 Ordered By: Romeo Arellano Skilled Items Patient informed of condition?: Yes DNR: No Discharge Level of Care: Acute rehab Communicable Disease: No Discharge Prognosis: Improving Admission Data Admit Date/Time: 11/25/18 09:33 Attending Provider: Lewis Martinez Admit Provider: Randal Cruz Primary Care Provider: PCP,NO Other Providers: Xin Gallagher ; Brianna Gonzalez ; Romeo Haynes ; Lavell Felix ; Omar Bledsoe ; Devi Diaz ; Manjeet Guy ; Jacques Rutherford ; Joao Gilliland ; Veena Phillips ; Malvin Day ; Lawrence Peck ; Anyi Sotomayor ; Diana Delaney ; Amanda Nunes ; Selene Louis ; Mikki Flores ; Rock Stallworth ; Kermit Hallman Service: Surgical Services Other Interventions: Discharge Summary Assessment (RN) Last Done: 12/13/18 13:21 DC Date/Time DO NOT enter until pt leaves facility: 12/13/18 14:29 Supervising Physician Co-Signing Physician Notes I personally examined the patient and verified all das points of history and exam, discussed case, and agree with decision making with Dr Arellano. Approved to rehab! Stable to go. No new complaints. Vitals noted, in general he is awake and alert pleasant no distress. HEENT normal cephalic atraumatic mucous members moist. Breathing unlabored no accessory muscle use good effort. Skin shows no rashes no pallor or iHip fracture�rehab�stable to go. Esophageal tear�full liquid advance to soft diet per GI recommendations, finished course of antibiotics per GI recommendations. Seems to be improving. Did have some significant discomfort, however it did improve with GI regimen. Alcohol abuse�he appears to have been right at the brink of a Wernicke Korsakoff type Syndrome�he was behaving in ways that seem to show some confabulation, and then improved with increased doses of thiamine over a few days. Discussed this with him in detail, and would recommend that he absolutely abstain from alcohol for the rest of his life. Resident Activity Tracking Resident Involvement: Resident Care Provided Care Provided: Adult Hospital Medicine
--- NOTE | 2018-12-13 13:13 | Orthopedic Progress Note ---
Date of Service December 13, 2018 Assessment & Plan (1) Traumatic closed nondisplaced fracture of neck of left femur: POD 18- ORIF left femoral neck fracture May be out of bed, weight bear as tolerated left lower extremity with assistance of a walker Ice to left hip PRN pain/swelling Allowed for full ROM left hip, knee and ankle No hip precautions needed. Continue PT/OT. Lovenox for DVT prophylaxis as per medicine Case management for discharge planning. Dr. Haynes was present during the evaluation. Follow-up appointment scheduled with Dr Haynes as previously scheduled. If needs changed please call [phone]. Will sign off at this time, please call with questions or concerns. Thuy Walker reports that his supposed to be transferred to a rehab facility later today. At present he is tolerating his meals well, and does not have any abdominal or stomach pain. He does feel like his left hip and leg are getting more stiff over time but is ambulating well with his walker . Otherwise denies chest pain, SOB, fevers, chills, sweats, nausea or vomiting. No questions or concerns at time of visit this morning. Review of Systems Review of Systems: All systems reviewed & are unremarkable except as noted in HPI & below Physical Exam Physical Exam: Left hip: incision healing well. NV intact. No fluctuance or drainage. Able to perform SLRT without difficulty. Results & Data Vital Signs (Past 12 Hours) Vital Signs Temp Pulse Resp BP Pulse Ox 12/13/18 06:53 36.7 C 68 18 116/78 98
== END 2018-12-13 14:29 ==
LOC: 4W 19:09 → ED 19:09 → SUATTDRO 11-24 01:59 → 4W 11-24 02:23 → SUATTDRO 11-25 09:33 → 3N 11-25 17:14 → 2S 11-25 21:40 → 1E 11-26 05:44 → 3W 11-29 18:23

== ENCOUNTER 2019-01-01 12:26 | Inpatient (IN) ==
[2019-01-01] MEDS ORDERED: ACETAMINOPHEN 1,000 MG/100 ML VIAL IV STA (12:54)
[2019-01-01] MEDS ORDERED: MULTI-VITAMIN INFUSION 10 ML, THIAMINE HCL 100 MG, FOLIC ACID 1 MG in SODIUM CHLORIDE 0... IV SCH ×2 (13:00→19:30)
--- NOTE | 2019-01-01 13:01 | Emergency Department Note ---
Entered by Gardenia Frye acting as a scribe for History of Present Illness General Chief complaint: Hip Pain Time Seen by Provider: 01/01/19 12:36 Source: patient History of Present Illness Provider complaint: Hip pain Onset (ago): day(s) 2 Location: hip and left Radiation: other (entire left side of body) Maximum Pain Intensity: 7 Associated symptoms: + other (inability to walk) Treatments prior to arrival: none The patient is a 53 year old male who presents to the ED with an episode of left sided hip pain that began 2 days ago. The patient states that he broke his hip one month ago. The patient reports that he fell 2 days ago while walking to the bus stop and has not been able to walk since. The patient notes that after the fall, someone helped him get back to his apartment and has been lying on his couch ever since. The patient states that his pain radiates up his entire left side. The patient notes that he has not had any treatments prior to arrival. The patient denies hitting his head during the fall. Home Medications Home Medications Medication Instructions Recorded Confirmed Type No Known Home Medications 10/28/18 01/01/19 History Allergies Allergy/AdvReac Type Severity Reaction Status Date / Time Penicillins AdvReac Mild TIRED Verified 01/01/19 13:54 Past Med/Surg History Medical History Esophageal stenosis DVT prophylaxis Esophageal tear Aortic root dilation Dementia Subgaleal hemorrhage Chronic hyponatremia History of esophageal stricture History of esophageal dilatation Hx of fracture of hip Hypertension (Chronic) Alcoholism (Chronic) Ambulatory dysfunction (Chronic) Dysphagia (Chronic) "h/o esophageal stricture s/p dilation in past" Frequent falls (Chronic) Tobacco abuse Surgical History History of esophagogastroduodenoscopy (EGD) History of hip surgery s/p fall and fx Family History Other Cancer Hypertension Social History Preferred Language: Zambian Communication Ability: Effective Visual Impairment: No Limitations Hearing Ability: Hard of Hearing Rate Reviewer Required: No Beliefs That Will Affect Care: None marital status: Single Current Living Situation: Alone and Homeless Feels Safe at Home: Yes Safety Concerns: Feels Safe At This Time Smoking Status: Former smoker Tobacco Type: cigarettes Do You Dip or Chew Tobacco: No Smoking End Date: 1.5 yrs ago Second Hand Exposure: No Tobacco Cessation Education Requested by Patient: No Hx Alcohol Use: Yes Alcohol type: beer Alcohol Intake Frequency Comment: 7-10 beers a day, uncertain which kind of beer Hx Substance Use: No Review of Systems See HPI for pertinent positives & negatives. and A total of 10 systems reviewed and were otherwise negative Physical Exam Vital Signs Vital Signs - 24 hr 01/01/19 12:37 01/01/19 14:20 01/01/19 15:11 Temperature 36.7 C Temperature Source Oral Sepsis Recent Fever Within 48 Hours No Sepsis New/Unexplained Change in Mental Status No Sepsis Action Taken by Nursing No Action Required Pulse Rate 83 Pulse Rate [Apical] 78 86 Respiratory Rate 16 16 18 Respiratory Effort / Characteristics Non-Labored Respiratory Depth Normal Blood Pressure 173/109 H Blood Pressure [Left Arm] 169/90 H 172/98 H Blood Pressure Mean 130 Blood Pressure Mean [Left Arm] 116 122 Pulse Oximetry 95 96 99 Oxygen Delivery Method Room Air Room Air Room Air 01/01/19 16:47 Temperature Temperature Source Sepsis Recent Fever Within 48 Hours Sepsis New/Unexplained Change in Mental Status Sepsis Action Taken by Nursing Pulse Rate Pulse Rate [Apical] 86 Respiratory Rate 18 Respiratory Effort / Characteristics Non-Labored Respiratory Depth Normal Blood Pressure Blood Pressure [Left Arm] 172/98 H Blood Pressure Mean Blood Pressure Mean [Left Arm] 122 Pulse Oximetry 96 Oxygen Delivery Method Room Air GENERAL: Awake, alert, unkempt, disheveled, in no distress. HENT: Normocephalic, atraumatic. Oropharynx with dry mucous membranes and otherwise unremarkable. EYES: Normal conjunctiva. Sclera non-icteric. NECK: Supple. No nuchal rigidity. FROM. No JVD. RESPIRATORY: CTAB CARDIAC: Regular rate, normal rhythm. Extremities warm and well perfused. Pulses equal. ABDOMEN: Soft, non-distended. No tenderness to palpation. No rebound or g uarding. No masses. RECTAL: Deferred. MUSCULOSKELETAL: Chest examination reveals no tenderness. The back is symmetrical on inspection without obvious abnormality. There is no CVA tenderness to palpation. No joint edema. LOWER EXTREMITIES: Calves are equal size bilaterally. No edema. No discoloration . Mild tenderness to lateral aspect of left hip. Full range of motion intact with mild discomfort. Distal PMS intact. NEURO: Normal sensorium. No sensory or motor deficits noted. SKIN: No rash or jaundice noted. Course 1244: Past medical records reviewed. The patient was evaluated in room A10. A complete history and physical exam was performed. 1427: I reevaluated the patient at this time and they are resting comfortably. I discussed the test results with the patient. 1443: The correctional case manager is speaking with the patient and they are looking into rehab. 1503: [facility] She will evaluat e the patient for further management. Consultations Consultation #1: I [facility] She will evaluate the patient for further management. Time: 15:03 Administered Medications Acetaminophen (Tylenol) 650 mg PO Q4H PRN PRN Reason: Pain or Fever Stop: 01/31/19 18:59 Last Admin: 01/01/19 23:15 Dose: 650 mg Documented by: [id number] Ketorolac Tromethamine (Toradol) 30 mg IV Q6H PRN PRN Reason: Pain Stop: 01/06/19 18:59 Last Admin: 01/01/19 19:52 Dose: 30 mg Documented by: [id number] Discontinued Medications Gabapentin (Neurontin) 800 mg PO 1930 ONE Stop: 01/01/19 19:31 Last Admin: 01/01/19 19:53 Dose: 800 mg Documented by: [id number] Multivitamins 10 ml/ Thiamine HCl 100 mg/ Folic Acid 1 mg/Sodium Chloride 1,011.2 mls @ 1,011.2 mls/hr IV .Q1H YOMAIRA Stop: 01/01/19 13:59 Last Infusion: 01/01/19 14:38 Dose: 0 mls/hr Documented by: [id number] Admin: 01/01/19 13:36 Dose: 1,011.2 mls/hr Documented by: [id number] Acetaminophen (Ofirmev) 1,000 mg in 100 mls @ 400 mls/hr IV NOW STA Stop: 01/01/19 13:08 Last Infusion: 01/01/19 13:32 Dose: 0 mls/hr Documented by: [id number] Admin: 01/01/19 13:06 Dose: 400 mls/hr Documented by: [id number] Dextrose/Sodium Chloride (D5w And Nss) 1,000 mls @ 999 mls/hr IV .Q1H1M STA Stop: 01/01/19 15:13 Last Infusion: 01/01/19 15:45 Dose: 0 mls/hr Documented by: [id number] Admin: 01/01/19 14:45 Dose: 999 mls/hr Documented by: [id number] Thiamine HCl 100 mg/ Syringe 10 mls @ 2 mls/min IV NOW STA Stop: 01/01/19 14:17 Last Admin: 01/01/19 14:39 Dose: 2 mls/min Documented by: [id number] Multivitamins 10 ml/ Thiamine HCl 100 mg/ Folic Acid 1 mg/Sodium Chloride 1,011.2 mls @ 500 mls/hr IV .Q2H2M YOMAIRA Stop: 01/01/19 21:31 Last Infusion: 01/01/19 22:09 Dose: 0 mls/hr Documented by: [id number] Admin: 01/01/19 19:53 Dose: 500 mls/hr Documented by: [id number] Ketorolac Tromethamine (Toradol) 15 mg IV NOW STA Stop: 01/01/19 15:02 Last Admin: 01/01/19 15:15 Dose: 15 mg Documented by: [id number] Medical Decision Making Differential Diagnosis Differential diagnoses include but are not limited to: fracture, dislocation, contusion, strain, ligamentous injury, tendon rupture, and septic joint. Medical Records Attestation: I reviewed the patient's medical records. Home Medications Current Medication List: was personally reviewed by me Laboratory Data Attestation: I reviewed the patient's lab results. Result diagrams: 01/01/19 13:05 01/01/19 13:05 Lab Results 01/01/19 01/01/19 01/01/19 Range/Units 13:05 13:05 13:05 WBC 7.29 (4.8-10.8) K/uL RBC 4.20 L (4.7-6.1) M/uL Hgb 12.6 L (14.0-18.0) g/dL Hct 36.4 L (42-52) % MCV 86.7 (80-100) fL MCH 30.0 (25-34) pg MCHC 34.6 (32-36) g/dL RDW Std Deviation 52.3 H (36.4-46.3) fL RDW Coeff of Luis 16.4 H (11.5-14.5) % Plt Count 198 (130-400) K/uL MPV 8.8 (7.4-10.4) fL Immature Gran % (Auto) 0.1 % Neut % (Auto) 68.7 % Lymph % (Auto) 22.1 % Rhea % (Auto) 7.3 % Eos % (Auto) 1.4 % Baso % (Auto) 0.4 % Immature Gran # (Auto) 0.01 (0.00-0.02) K/uL Neut # (Auto) 5.01 (1.4-6.5) K/uL Lymph # (Auto) 1.61 (1.2-3.4) K/uL Rhea # (Auto) 0.53 (0.11-0.59) K/uL Eos # (Auto) 0.10 (0-0.5) K/uL Baso # (Auto) 0.03 (0-0.2) K/uL PT 10.3 (9.0-12.0) Seconds INR 1.0 (0.9-1.1) Sodium 138 (136-145) mmol/L Potassium 3.9 (3.5-5.1) mmol/L Chloride 100 (98-107) mmol/L Carbon Dioxide 24 (21-32) mmol/L Anion Gap 14.0 H (3-11) BUN 4 L (7-18) mg/dl Creatinine 0.52 L (0.6-1.4) mg/dl Est Cr Clr Drug Dosing 142.4 ml/min Est GFR ( Amer) 140.1 Est GFR (Non-Af Amer) 120.9 BUN/Creatinine Ratio 6.9 L (10-20) Glucose 62 L (70-99) mg/dl POC Glucose (70-99) Calcium 9.2 (8.5-10.1) mg/dl Magnesium 2.0 (1.8-2.4) mg/dl Total Bilirubin 0.8 (0.2-1) mg/dl AST 118 H (15-37) U/L ALT 55 (12-78) U/L Alkaline Phosphatase 123 H (45-117) U/L Total Protein 7.4 (6.4-8.2) gm/dl Albumin 3.7 (3.4-5.0) gm/dl Globulin 3.7 (2.5-4.0) gm/dl Albumin/Globulin Ratio 1.0 (0.9-2) Lipase 138 (73-393) U/L Ethyl Alcohol mg/dL (0-3) mg/dl 01/01/19 01/01/19 Range/Units 13:05 15:21 WBC (4.8-10.8) K/uL RBC (4.7-6.1) M/uL Hgb (14.0-18.0) g/dL Hct (42-52) % MCV (80-100) fL MCH (25-34) pg MCHC (32-36) g/dL RDW Std Deviation (36.4-46.3) fL RDW Coeff of Luis (11.5-14.5) % Plt Count (130-400) K/uL MPV (7.4-10.4) fL Immature Gran % (Auto) % Neut % (Auto) % Lymph % (Auto) % Rhea % (Auto) % Eos % (Auto) % Baso % (Auto) % Immature Gran # (Auto) (0.00-0.02) K/uL Neut # (Auto) (1.4-6.5) K/uL Lymph # (Auto) (1.2-3.4) K/uL Rhea # (Auto) (0.11-0.59) K/uL Eos # (Auto) (0-0.5) K/uL Baso # (Auto) (0-0.2) K/uL PT (9.0-12.0) Seconds INR (0.9-1.1) Sodium (136-145) mmol/L Potassium (3.5-5.1) mmol/L Chloride (98-107) mmol/L Carbon Dioxide (21-32) mmol/L Anion Gap (3-11) BUN (7-18) mg/dl Creatinine (0.6-1.4) mg/dl Est Cr Clr Drug Dosing ml/min Est GFR ( Amer) Est GFR (Non-Af Amer) BUN/Creatinine Ratio (10-20) Glucose (70-99) mg/dl POC Glucose 138 H (70-99) Calcium (8.5-10.1) mg/dl Magnesium (1.8-2.4) mg/dl Total Bilirubin (0.2-1) mg/dl AST (15-37) U/L ALT (12-78) U/L Alkaline Phosphatase (45-117) U/L Total Protein (6.4-8.2) gm/dl Albumin (3.4-5.0) gm/dl Globulin (2.5-4.0) gm/dl Albumin/Globulin Ratio (0.9-2) Lipase (73-393) U/L Ethyl Alcohol mg/dL 137.0 H (0-3) mg/dl Imaging Data Radiologist's Impression: Radiology results as stated below per my review and the radiologist's interpretation: XR hip LT 2-3V w pelvis CLINICAL HISTORY: 53 years-old Male presenting with pain in the left hip status post fall. TECHNIQUE: Single frontal view the pelvis and frontal and frog-leg lateral views of the left hip were obtained. COMPARISON: 12/07/2018. FINDINGS: Osteopenia suspected. Sacral iliac joints, pubic symphysis, and hip joints congr uent. Intramedullary nail fixation of the right femoral neck and proximal metadiaphysis. Dynamic screw fixation of the left femoral neck. The bony pelvis is grossly intact. Atherosclerotic calcifications noted. The left hip joint specifically demonstrates no joint space loss or advanced degenerative change. No hardware breakage or malalignment. The chronic subcapital or transcervical fracture plane is apparent. Chronic periosteal reaction is noted. The alignment is unchanged from prior, allowing for differences in positioning when comparing to the prior exam. IMPRESSION: 1. Persistent fracture plane at the subcapital or transcervical left femoral neck though there is evident chronic periosteal reaction. 2. Bilateral internal fixation hardware of the femurs without evidence of hardware breakage or other complication. 3. No acute osseous injury of the pelvis. 4. Suspected osteopenia. Electronically signed by: Romeo Lema M.D. 01/01/2019 1:26 PM XR knee LT 3V CLINICAL HISTORY: pain fall trauma. Pain. COMPARISON: None. DISCUSSION: The bones and joint spaces appear intact. There is no evidence of fracture, dislocation or bony disease. There is no evidence for soft tissue swelling. IMPRESSION: Negative study. The above report was generated using voice recognition software. It may contain grammatical, syntax or spelling errors. Electronically signed by: Keven Vann M.D. 01/01/2019 1:25 PM XR tibia fibula LT 2V CLINICAL HISTORY: Pain status post trauma COMPARISON: None. DISCUSSION: The bones are osteopenic. No fractures or dislocations are visualized. IMPRESSION: No fractures or dislocations identified. Electronically signed by: Alejandro Lucas M.D. 01/01/2019 1:[address] pelvis wo con CLINICAL HISTORY: 53 years-old Male presenting with left hip pain. TECHNIQUE: Multidetector CT of the pelvis was performed without the use of intravenous contrast. IV contrast: None. One or more dose lowering techniques were used consistent with the principles of ALARA (as low as reasonably achievable), including automatic exposure control, mA or kV adjustment to individual patient size, and/or use of iterative reconstruction. COMPARISON: 11/23/2018. CT DOSE (mGy.cm): The estimated cumulative dose is 317.79 mGy.cm. FINDINGS: Embossing Tool Setter topogram: Bilateral internal fixation hardware in the femurs. Intramedullary nail fixation within the right femoral neck and proximal metadiaphysis. Heterotopic ossification along the superior right hip joint, which is nonbridging. Dynamic screw fixation of the left femoral neck and intertrochanteric region. Trace fracture plane in the subcapital-transcervical left femoral neck is evident (series 200 image 25). No significant malalignment. Osteopenia limits evaluation of the underlying osseous structures. There is a prominent left hip joint effusion an synovial thickening. The bilateral hip joints are congruent. The remainder of the pelvis is intact. Sacrum intact. Moderate compression deformity predominantly of the central endplates at L5, which is new from prior exam. Limited intrapelvic a violation demonstrates diverticulosis of the proximal to mid sigmoid colon with associated wall thickening. No pericolonic inflammatory change. Nonobstructive bowel gas pattern. No free fluid. Circumferential bladder wall thickening in the setting of a mildly enlarged prostate. Fat-containing left inguinal hernia. Atherosclerosis. Grossly normal muscle bulk for age. No subcutaneous fluid collection or significant edema. IMPRESSION: 1. Left hip joint effusion and synovitis. This is nonspecific. Correlate clinically for infectious symptoms. This may be reactive in the presence of a healing or recent injury. 2. Minimally evident chronic fracture plane at the subcapital-transcervical left femoral neck with a dynamic screw fixation in place. The degree of osteo penia limits evaluation of the underlying osseous structure. 3. Interval development of a moderate compression fracture of T5 new since the prior CT in November. 4. Chronic diverticular disease of the sigmoid colon. 5. Chronic bladder outlet obstruction with mild prostatomegaly. Electronically signed by: Romeo Lema M.D. 01/01/2019 3:56 PM Blood Pressure Blood Pressure Findings: Elevated blood pressure Blood Pressure Disposition: further management by hospitalist VENICE Narrative The patient is a 53-year-old gentleman with a past medical history of alcohol abuse, alcohol withdrawal, delirium tremens, homelessness with recent left hip fracture last month status post surgery and inpatient rehab at [facility] who presents emergency department with left hip pain after having a fall 3 days ago per hpi. On arrival patient is in no acute distress, afebrile stable vital signs. The patient is unkept and disheveled with foul body odor. He has mild tenderness to the lateral aspect of left hip but does have full range of motion with mild discomfort. WBC and platelets within normal limits. H/H 12.6/36.4 improved from prior. Chemistry without acidosis. Creatinine within normal limits. Glucose 62 with D5NS provided with thiamine prior. AST 118 with ALT 55 consistent with the patient's history of alcohol abuse. INR within normal limits. EtOH level 137. Plain films of the hip/pelvis and tib-fib and knee negative for acute fracture or previous previous fracture plain of the femoral neck persists with chronic periosteal reaction. Patient reports still reports pain is so severe that he is unable to ambulate. Unfortunately patient unable to be placed directly into rehab therefore will require admission for pain control and PT/OT eval. CT of the pelvis ordered to further clarify any possible new traumatic findings which demonstrates left hip joint effusion and synovitis that is nonspecific and likely related to patient's recent surgery chr onic fracture plan again observed. There is interval development of a moderate compression fracture of T5 however patient does not appear to be symptomatic from this. Patient additionally treated with banana bag given his etoh abuse. No active withdrawal sx at this time. Case was discussed with Dr. Brandy Guerrero, [facility] hospitalist, who will evaluate the patient for admission. Impression & Plan Hip pain, left, Alcohol abuse Discharge Plan Visit Data *Final* Discharge Date/Time: 01/01/19 18:30 Chief Complaint: Hip Pain ED Provider: Austyn Trinidad Discharge Problem: Hip pain, left, Alcohol abuse Patient Disposition: Admitted As Inpatient Discharge Instructions Interventions: ED Discharge Assessment Last Done: 01/01/19 18:30 The scribe's documentation has been prepared under my direction and personally reviewed by me in its entirety. I confirm that the note above accurately reflects all work, treatment, procedures, and medical decision making performed by me.
[2019-01-01 13:27] LABS: Basophils # (auto) 0.03 K/uL (0-0.2); Basophils % (auto) 0.4 %; Eosinophils % (auto) 1.4 %; Hematocrit (blood only) 36.4 % (42-52); Hemoglobin 12.6 g/dL (14.0-18.0); Immature Granulocytes # (auto) 0.01 K/uL (0.00-0.02); Immature Granulocytes % (auto) 0.1 %; Lymphocytes # (auto) 1.61 K/uL (1.2-3.4); Lymphocytes % (auto) 22.1 %; Mean Corpuscular Hgb Conc 34.6 g/dL (32-36); Mean Corpuscular Volume 86.7 fL (80-100); Mean Platelet Volume 8.8 fL (7.4-10.4); Monocytes # (auto) 0.53 K/uL (0.11-0.59); Monocytes % (auto) 7.3 %; Neutrophils # (auto) 5.01 K/uL (1.4-6.5); Neutrophils % (auto) 68.7 %; Platelet Count 198 K/uL (130-400); RDW Coefficient of Variation 16.4 % (11.5-14.5); RDW Standard Deviation 52.3 fL (36.4-46.3); White Blood Count 7.29 K/uL (4.8-10.8)
--- NOTE | 2019-01-01 13:27 | XRay Report ---
XR tibia fibula LT 2V CLINICAL HISTORY: Pain status post trauma COMPARISON: None. DISCUSSION: The bones are osteopenic. No fractures or dislocations are visualized. IMPRESSION: No fractures or dislocations identified. Electronically signed by: Alejandro Lucas M.D. 01/01/2019 1:26 PM
--- NOTE | 2019-01-01 13:27 | XRay Report ---
XR hip LT 2-3V w pelvis CLINICAL HISTORY: 53 years-old Male presenting with pain in the left hip status post fall. TECHNIQUE: Single frontal view the pelvis and frontal and frog-leg lateral views of the left hip were obtained. COMPARISON: 12/07/2018. FINDINGS: Osteopenia suspected. Sacral iliac joints, pubic symphysis, and hip joints congruent. Intramedullary nail fixation of the right femoral neck and proximal metadiaphysis. Dynamic screw fixation of the lef t femoral neck. The bony pelvis is grossly intact. Atherosclerotic calcifications noted. The left hip joint specifically demonstrates no joint space loss or advanced degenerative change. No hardware breakage or malalignment. The chronic subcapital or transcervical fracture plane is apparent . Chronic periosteal reaction is noted. The alignment is unchanged from prior, allowing for differenc es in positioning when comparing to the prior exam. IMPRESSION: 1. Persistent fracture plane at the subcapital or transcervical left femoral neck though there is ev ident chronic periosteal reaction. 2. Bilateral internal fixation hardware of the femurs without evidence of hardware breakage or other complication. 3. No acute osseous injury of the pelvis. 4. Suspected osteopenia. Electronically signed by: Romeo Lema M.D. 01/01/2019 1:26 PM
--- NOTE | 2019-01-01 13:27 | XRay Report ---
XR knee LT 3V CLINICAL HISTORY: pain fall trauma. Pain. COMPARISON: None. DISCUSSION: The bones and joint spaces appear intact. There is no evidence of fracture, dislocation o r bony disease. There is no evidence for soft tissue swelling. IMPRESSION: Negative study. The above report was generated using voice recognition software. It may contain grammatical, syntax or spelling errors. Electronically signed by: Keven Vann M.D. 01/01/2019 1:25 PM
[2019-01-01 13:43] LABS: Albumin Level 3.7 gm/dl (3.4-5.0); BUN Creatinine Ratio 6.9 (10-20); Calcium 9.2 mg/dl (8.5-10.1); Creatinine Clr Calc Pharmacy 142.4 ml/min; Est GFR (African American) 140.1; Est GFR (Non-African American) 120.9; Potassium 3.9 mmol/L (3.5-5.1)
[2019-01-01 13:46] LABS: Bilirubin,Total 0.8 mg/dl (0.2-1); Globulin 3.7 gm/dl (2.5-4.0); Total Protein 7.4 gm/dl (6.4-8.2)
[2019-01-01 13:50] LABS: Prothrombin Time 10.3 Seconds (9.0-12.0)
[2019-01-01] MEDS ORDERED: D5W AND NSS 1,000 ML IV STA (14:13)
[2019-01-01] MEDS ORDERED: THIAMINE HCL 100 MG in SYRINGE 9 ML IV STA (14:13)
[2019-01-01] MEDS ORDERED: KETOROLAC TROMETHAMINE 15 MG/ML VIAL IV STA (15:01)
--- NOTE | 2019-01-01 15:50 | History & Physical Report ---
Date of Service January 01, 2019 Assessment & Plan (1) Hip pain, left: Unable to bear weight Imaging as noted Recent L hip fracture and repair, ortho c/s pending PT/OT for rehab placement Toradol for pain, if no help can try morphine Heat applications (2) Alcohol abuse: Pt states he usually drinks 7-8 beers daily. No liquor use. States his last beer was 2 days ago, however pt smells of alcohol and had a EtOH level of 137 Alcohol withdrawal protocol with gabapentin loading and maintenance dosing (3) DVT prophylaxis: SCDs for now History of Present Illness Primary Care Provider: NO PCP 53 y/o M c/o L hip pain. Pt reports that he fell 3 days ago and has had pain since that time. Pt states he was walking across the parking lot of his apt complex when he could not bear weight. Someone had to help him back to his apt. He states this happened again the next day. Today, he could not even bear weight to get out of bed and had to call an ambulance to bring him here. He states he did not trip or lose his balance, he just could not bear weight. He is having L LE pain to his hip into his thigh. No back pain. Pt was recently a pt with [facility] last month s/p hip fracture and repair. He expressed interest in going there today, however CM rep from stated that even if PT/OT was done in the ED, there would be no way to get an insurance auth approved from insurance plan. Pt denies fever, SOB, chest pain, abd pain, n/v/c/d, LE swelling. Pt states he usually drinks 7-8 beers daily. No liquor use. He says his last beer was 2 days ago. Denies hx of DVTs but states he does get shaky at times. Allergies Allergy/AdvReac Type Severity Reaction Status Date / Time Penicillins AdvReac Mild TIRED Verified 01/01/19 13:54 Home Medications Home Medications Medication Instructions Recorded Confirmed Type No Known Home Medications 10/28/18 01/01/19 History Past Med/Surg History Medical History Esophageal stenosis DVT prophylaxis Esophageal tear Aortic root dilation Dementia Subgaleal hemorrhage Chronic hyponatremia History of esophageal stricture History of esophageal dilatation Hx of fracture of hip Hypertension (Chronic) Alcoholism (Chronic) Ambulatory dysfunction (Chronic) Dysphagia (Chronic) "h/o esophageal stricture s/p dilation in past" Frequent falls (Chronic) Tobacco abuse Surgical History History of esophagogastroduodenoscopy (EGD) History of hip surgery s/p fall and fx Family History Other Cancer Hypertension Social History Preferred Language: Comoran Communication Ability: Effective Visual Impairment: No Limitations Hearing Ability: Hard of Hearing Beliefs That Will Affect Care: None marital status: Single Current Living Situation: Alone and Homeless Feels Safe at Home: Yes Smoking Status: Former smoker Smoking End Date: 1.5 yrs ago Hx Alcohol Use: Yes Alcohol type: beer Alcohol Intake Frequency Comment: 7-10 beers a day, uncertain which kind of beer Hx Substance Use: No Review of Systems Review of Systems: Pertinent positives and negatives reviewed in HPI--all others negative Physical Exam Constitutional: WD/WN, vitals as above + disheveled Room smells of urine upon entering Pt smells of alcohol when going near to examine Eyes: normal visual forbes by confrontation and + anicteric sclerae Neck: normal visual inspection and trachea midline Respiratory: normal respiratory effort, lungs clear to auscultation Cardiovascular: Rate/Rhythm: regular rate and regular rhythm Gastrointestinal (Abdomen): Inspection/Auscultation: abdomen not distended Percussion/Palpation: abdomen soft; abdomen nontender Musculoskeletal: Head/Neck/Chest: normocephalic and head atraumatic negative for edema, peripheral pulses intact Skin: no rashes, warm and dry Neurologic: awake; not confused Speech / Cognition: normal speech Psychiatric: A+Ox3, euthymic affect Results & Data Vital Signs (Past 12 Hours) Vital Signs Temp Pulse Pulse Resp BP BP Pulse Ox 01/01/19 15:11 86 18 172/98 H 99 01/01/19 14:20 78 16 169/90 H 96 01/01/19 12:37 36.7 C 83 16 173/109 H 95 Diagnostic Findings L hip, tib/fib, knee XR: neg for acute issues other than femoral neck fx that is possibly old CT hip: 1. Left hip joint effusion and synovitis. This is nonspecific. Correlate clinically for infectious symptoms. This may be reactive in the presence of a healing or recent injury. 2. Minimally evident chronic fracture plane at the subcapital-transcervical left femoral neck with a dynamic screw fixation in place. The degree of osteopenia limits evaluation of the underlying osseous structure. 3. Interval development of a moderate compression fracture of T5 new since the prior CT in November. 4. Chronic diverticular disease of the sigmoid colon. 5. Chronic bladder outlet obstruction with mild prostatomegaly. Code Status & VTE Plan Code Status Full code VTE Prophylaxis Plan VTE Prophylaxis will be ordered: Yes PG Care Time/CCT Total # of Minutes Spent Total Time Spent with Patient: Total time spent is greater than 50% in coordination of care (as documented) at patient's floor/unit and/or counseling patient:
--- NOTE | 2019-01-01 15:57 | CT Scan Report ---
CT pelvis wo con CLINICAL HISTORY: 53 years-old Male presenting with left hip pain. TECHNIQUE: Multidetector CT of the pelvis was performed without the use of intravenous contrast. IV c ontrast: None. One or more dose lowering techniques were used consistent with the principles of ALARA (as low as reasonably achievable), including automatic exposure control, mA or kV adjustment to mark vidual patient size, and/or use of iterative reconstruction. COMPARISON: 11/23/2018. CT DOSE (mGy.cm): The estimated cumulative dose is 317.79 mGy.cm. 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 Intramedullary nail fixation within the right femoral neck and proximal metadiaphysis. Heterotopic os sification along the superior right hip joint, which is nonbridging. Dynamic screw fixation of the le ft femoral neck and intertrochanteric region. Trace fracture plane in the subcapital-transcervical le ft femoral neck is evident (series 200 image 25). No significant malalignment. Osteopenia limits eval uation of the underlying osseous structures. There is a prominent left hip joint effusion an synovial thickening. The bilateral hip joints are congruent. The remainder of the pelvis is intact. Sacrum intact. Moderat e compression deformity predominantly of the central endplates at L5, which is new from prior exam. Limited intrapelvic a violation demonstrates diverticulosis of the proximal to mid sigmoid colon with associated wall thickening. No pericolonic inflammatory change. Nonobstructive bowel gas pattern. No free fluid. Circumferential bladder wall thickening in the setting of a mildly enlarged prostate. Fa t-containing left inguinal hernia. Atherosclerosis. Grossly normal muscle bulk for age. No subcutaneous fluid collection or significant edema. IMPRESSION: 1. Left hip joint effusion and synovitis. This is nonspecific. Correlate clinically for infectious s ymptoms. This may be reactive in the presence of a healing or recent injury. 2. Minimally evident chronic fracture plane at the subcapital-transcervical left femoral neck with a dynamic screw fixation in place. The degree of osteopenia limits evaluation of the underlying osseou s structure. 3. Interval development of a moderate compression fracture of T5 new since the prior CT in November. 4. Chronic diverticular disease of the sigmoid colon. 5. Chronic bladder outlet obstruction with mild prostatomegaly. Electronically signed by: Romeo Lema M.D. 01/01/2019 3:56 PM
[2019-01-01] MEDS ORDERED: GABAPENTIN 800MG ALCOHOL WITHDRAWAL LOAD PO STA (19:00)
[2019-01-01] MEDS ORDERED: MoRPHine SULFATE 2 MG/ML CARP IV PRN (19:00)
[2019-01-01] MEDS ORDERED: LORazepam 1 MG TAB PO PRN ×2 (19:00)
[2019-01-01] MEDS ORDERED: LORazepam 1 MG/2 ML VIAL IV PRN (19:00)
[2019-01-01] MEDS ORDERED: MAGNESIUM HYDROXIDE SUSP 30 ML UDC PO PRN (19:00)
[2019-01-01] MEDS ORDERED: ONDANSETRON INJ 2 MG/ML 2 ML VIAL IV PRN (19:00)
[2019-01-01] MEDS ORDERED: GABAPENTIN 400 MG CAP PO ONE (19:30)
[2019-01-01] MEDS: KETOROLAC 30 MG/ML VIAL IV PRN (19:52)
[2019-01-01] MEDS: ACETAMINOPHEN 325 MG TAB PO PRN (23:15)
[2019-01-02] MEDS ORDERED: HydrALAZINE HCL 20 MG/ML VIAL IV STA (04:51)
[2019-01-02] MEDS: KETOROLAC 30 MG/ML VIAL IV PRN ×3 (05:42→21:12)
[2019-01-02] MEDS: GABAPENTIN 400 MG CAP PO SCH ×3 (05:52→21:13)
[2019-01-02] MEDS ORDERED: ACETAMINOPHEN 65 ML IV PRN (08:30)
[2019-01-02] MEDS: ACETAMINOPHEN 325 MG TAB PO PRN ×3 (08:59→22:20)
--- NOTE | 2019-01-02 10:58 | Orthopedic Consultation ---
Date of Consultation January 02, 2019 Assessment & Plan (1) Hip pain, left: Cont PT/OT while in house Cont pain control with PO or IV Meds Will need new walker Medicine will cont to manage patient Case management to follow Patient may need placement in Rehab or SNF Will discuss with Dr. Haynes. (2) Contusion of knee, left: Supervising Physician Co-Signing Physician Notes I saw and examined the patient. Agree with above note. X-rays and CT scan show some mild heterotopic ossification at the surgical site and a healing fracture. No evidence for complication. His increased pain is likely due to falling on th e surgical site and irritating the scar. No indication for surgical intervention. Follow-up with me in 4 weeks with x-rays. He missed his previous outpatient follow-up. I stressed the importance of stopping drinking, as he is likely to continue to fall if he does not curb his alcohol consumption. History of Present Illness Reason for Consultation: Left hip pain Requesting Physician: Dr Romeo Haynes Attending Physician: Trevor Enriquez History of Present Illness This 53 yo M is seen this AM on 2nd floor for consultation. Pt c/o left hip and knee pain after falling twice over past several days. Pt recently had surgical fixation for a Traumatic closed nondisplaced fracture of neck of left femur by Dr. Haynes. Pt was hospitalized for 18 days and multiple other issues that required intervention and placement in a rehab facility. Patient states that he has been using his walker since the surgery but states that it is unstable. Pt c/o weakness, dizziness and difficulty bearing full weight. Currently his ambulating down the turner with PT using a new walker provided by the hospital. Allergies Allergy/AdvReac Type Severity Reaction Status Date / Time Penicillins AdvReac Mild TIRED Verified 01/01/19 13:54 hydralazine AdvReac Vomiting Verified 01/02/19 06:11 Home Medications Home Medications Medication Instructions Recorded Confirmed Type No Known Home Medications 10/28/18 01/01/19 History Patient History Medical History Esophageal stenosis DVT prophylaxis Esophageal tear Aortic root dilation Dementia Subgaleal hemorrhage Chronic hyponatremia History of esophageal stricture History of esophageal dilatation Hx of fracture of hip Hypertension (Chronic) Alcoholism (Chronic) Ambulatory dysfunction (Chronic) Dysphagia (Chronic) "h/o esophageal stricture s/p dilation in past" Frequent falls (Chronic) Tobacco abuse Surgical History History of esophagogastroduodenoscopy (EGD) History of hip surgery s/p fall and fx Family History Other Cancer Hypertension Social History Preferred Language: Persian Communication Ability: Effective Visual Impairment: No Limitations Hearing Ability: Hard of Hearing Pediatric Pathologist Required: No Beliefs That Will Affect Care: None marital status: Single Current Living Situation: Alone and Homeless Feels Safe at Home: Yes Safety Concerns: Feels Safe At This Time Smoking Status: Former smoker Tobacco Type: cigarettes Do You Dip or Chew Tobacco: No Smoking End Date: 1.5 yrs ago Second Hand Exposure: No Tobacco Cessation Education Requested by Patient: No Hx Alcohol Use: Yes Alcohol type: beer Alcohol Intake Frequency Comment: 7-10 beers a day, uncertain which kind of beer Hx Substance Use: No Review of Systems Review of Systems: All systems reviewed & are unremarkable except as noted in HPI & below Physical Exam Physical Exam: Left leg: surgical incision site to lateral thigh healed completely with no redness or signs of infection. Mild swelling and tenderness. No pain with passive light internal and external rotation of the hip. Flexion to 90 degrees without pain. Quad atrophy but strength is 4/5. Knee ROM 0-110. Ecchymotic area over anterolateral surface of knee that is TTP. No laxity with varus/valgus stressing. Neg Leela. NV intact in Left LE. Results & Data Vital Signs (Past 12 Hours) Vital Signs Temp Pulse Pulse Resp BP BP Pulse Ox 01/02/19 07:33 36.8 C 89 19 164/91 H 96 01/02/19 06:17 36.7 C 86 20 127/75 122/76 98 01/02/19 05:45 36.6 C 93 H 21 120/75 128/79 99 01/02/19 04:00 182/112 H 01/02/19 03:15 36.6 C 80 20 186/118 H 97 01/02/19 01:00 157/84 H 01/02/19 00:00 83 01/01/19 23:05 36.9 C 78 18 153/90 H 97 Laboratory Results 01/01/19 01/01/19 01/01/19 Range/Units 19:14 15:21 13:05 WBC (4.8-10.8) K/uL RBC (4.7-6.1) M/uL Hgb (14.0-18.0) g/dL Hct (42-52) % MCV (80-100) fL MCH (25-34) pg MCHC (32-36) g/dL RDW Std Deviation (36.4-46.3) fL RDW Coeff of Luis (11.5-14.5) % Plt Count (130-400) K/uL MPV (7.4-10.4) fL Immature Gran % (Auto) % Neut % (Auto) % Lymph % (Auto) % Hernando % (Auto) % Eos % (Auto) % Baso % (Auto) % Immature Gran # (Auto) (0.00-0.02) K/uL Neut # (Auto) (1.4-6.5) K/uL Lymph # (Auto) (1.2-3.4) K/uL Hernando # (Auto) (0.11-0.59) K/uL Eos # (Auto) (0-0.5) K/uL Baso # (Auto) (0-0.2) K/uL PT (9.0-12.0) Seconds INR (0.9-1.1) Sodium (136-145) mmol/L Potassium (3.5-5.1) mmol/L Chloride (98-107) mmol/L Carbon Dioxide (21-32) mmol/L Anion Gap (3-11) BUN (7-18) mg/dl Creatinine (0.6-1.4) mg/dl Est Cr Clr Drug Dosing ml/min Est GFR ( Amer) Est GFR (Non-Af Amer) BUN/Creatinine Ratio (10-20) Glucose (70-99) mg/dl POC Glucose 138 H (70-99) Calcium (8.5-10.1) mg/dl Magnesium (1.8-2.4) mg/dl Total Bilirubin (0.2-1) mg/dl AST (15-37) U/L ALT (12-78) U/L Alkaline Phosphatase (45-117) U/L Total Protein (6.4-8.2) gm/dl Albumin (3.4-5.0) gm/dl Globulin (2.5-4.0) gm/dl Albumin/Globulin Ratio (0.9-2) Lipase (73-393) U/L Folate > 24.00 (>5.38) ng/ml Ethyl Alcohol mg/dL 137.0 H (0-3) mg/dl 01/01/19 01/01/19 01/01/19 Range/Units 13:05 13:05 13:05 WBC 7.29 (4.8-10.8) K/uL RBC 4.20 L (4.7-6.1) M/uL Hgb 12.6 L (14.0-18.0) g/dL Hct 36.4 L (42-52) % MCV 86.7 (80-100) fL MCH 30.0 (25-34) pg MCHC 34.6 (32-36) g/dL RDW Std Deviation 52.3 H (36.4-46.3) fL RDW Coeff of Luis 16.4 H (11.5-14.5) % Plt Count 198 (130-400) K/uL MPV 8.8 (7.4-10.4) fL Immature Gran % (Auto) 0.1 % Neut % (Auto) 68.7 % Lymph % (Auto) 22.1 % Hernando % (Auto) 7.3 % Eos % (Auto) 1.4 % Baso % (Auto) 0.4 % Immature Gran # (Auto) 0.01 (0.00-0.02) K/uL Neut # (Auto) 5.01 (1.4-6.5) K/uL Lymph # (Auto) 1.61 (1.2-3.4) K/uL Hernando # (Auto) 0.53 (0.11-0.59) K/uL Eos # (Auto) 0.10 (0-0.5) K/uL Baso # (Auto) 0.03 (0-0.2) K/uL PT 10.3 (9.0-12.0) Seconds INR 1.0 (0.9-1.1) Sodium 138 (136-145) mmol/L Potassium 3.9 (3.5-5.1) mmol/L Chloride 100 (98-107) mmol/L Carbon Dioxide 24 (21-32) mmol/L Anion Gap 14.0 H (3-11) BUN 4 L (7-18) mg/dl Creatinine 0.52 L (0.6-1.4) mg/dl Est Cr Clr Drug Dosing 142.4 ml/min Est GFR ( Amer) 140.1 Est GFR (Non-Af Amer) 120.9 BUN/Creatinine Ratio 6.9 L (10-20) Glucose 62 L (70-99) mg/dl POC Glucose (70-99) Calcium 9.2 (8.5-10.1) mg/dl Magnesium 2.0 (1.8-2.4) mg/dl Total Bilirubin 0.8 (0.2-1) mg/dl AST 118 H (15-37) U/L ALT 55 (12-78) U/L Alkaline Phosphatase 123 H (45-117) U/L Total Protein 7.4 (6.4-8.2) gm/dl Albumin 3.7 (3.4-5.0) gm/dl Globulin 3.7 (2.5-4.0) gm/dl Albumin/Globulin Ratio 1.0 (0.9-2) Lipase 138 (73-393) U/L Folate (>5.38) ng/ml Ethyl Alcohol mg/dL (0-3) mg/dl Diagnostic Findings Imaging Data Radiologist's Impression: Radiology results as stated below per my review and the radiologist's interpretation: XR hip LT 2-3V w pelvis CLINICAL HISTORY: 53 years-old Male presenting with pain in the left hip status post fall. TECHNIQUE: Single frontal view the pelvis and frontal and frog-leg lateral views of the left hip were obtained. COMPARISON: 12/07/2018. FINDINGS: Osteopenia suspected. Sacral iliac joints, pubic symphysis, and hip joints congruent. Intramedullary nail fixation of the right femoral neck and proximal metadiaphysis. Dynamic screw fixation of the left femoral neck. The bony pelvis is grossly intact. Atherosclerotic calcifications noted. The left hip joint specifically demonstrates no joint space loss or advanced degenerative change. No hardware breakage or malalignment. The chronic subcapital or transcervical fracture plane is apparent. Chronic periosteal reaction is noted. The alignment is unchanged from prior, allowing for differences in positioning when comparing to the prior exam. IMPRESSION: 1. Persistent fracture plane at the subcapital or transcervical left femoral neck though there is evident chronic periosteal reaction. 2. Bilateral internal fixation hardware of the femurs without evidence of hardware breakage or other complication. 3. No acute osseous injury of the pelvis. 4. Suspected osteopenia. Electronically signed by: Romeo Lema M.D. 01/01/2019 1:26 PM XR knee LT 3V CLINICAL HISTORY: pain fall trauma. Pain. COMPARISON: None. DISCUSSION: The bones and joint spaces appear intact. There is no evidence of fracture, dislocation or bony disease. There is no evidence for soft tissue swelling. IMPRESSION: Negative study. The above report was generated using voice recognition software. It may contain grammatical, syntax or spelling errors. Electronically signed by: Keven Vann M.D. 01/01/2019 1:25 PM XR tibia fibula LT 2V CLINICAL HISTORY: Pain status post trauma COMPARISON: None. DISCUSSION: The bones are osteopenic. No fractures or dislocations are visualized. IMPRESSION: No fractures or dislocations identified. Electronically signed by: Alejandro Lucas M.D. 01/01/2019 1:[address] pelvis wo con CLINICAL HISTORY: 53 years-old Male presenting with left hip pain. TECHNIQUE: Multidetector CT of the pelvis was performed without the use of intravenous contrast. IV contrast: None. One or more dose lowering techniques were used consistent with the principles of ALARA (as low as reasonably achievable), including automatic exposure control, mA or kV adjustment to individual patient size, and/or use of iterative reconstruction. COMPARISON: 11/23/2018. CT DOSE (mGy.cm): The estimated cumulative dose is 317.79 mGy.cm. 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 Intramedullary nail fixation within the right femoral neck and proximal metadiaphysis. Heterotopic ossification along the superior right hip joint, which is nonbridging. Dynamic screw fixation of the left femoral neck and intertrochanteric region. Trace fracture plane in the subcapital-transcervical left femoral neck is evident (series 200 image 25). No significant malalignment. Osteopenia limits evaluation of the underlying osseous structures. There is a prominent left hip joint effusion an synovial thickening. The bilateral hip joints are congruent. The remainder of the pelvis is intact. Sacrum intact. Moderate compression deformity predominantly of the central endplates at L5, which is new from prior exam. Limited intrapelvic a violation demonstrates diverticulosis of the proximal to mid sigmoid colon with associated wall thickening. No pericolonic inflammatory change. Nonobstructive bowel gas pattern. No free fluid. Circumferential bladder wall thickening in the setting of a mildly enlarged prostate. Fat-containing left inguinal hernia. Atherosclerosis. Grossly normal muscle bulk for age. No subcutaneous fluid collection or significant edema. IMPRESSION: 1. Left hip joint effusion and synovitis. This is nonspecific. Correlate clinically for infectious symptoms. This may be reactive in the presence of a healing or recent injury. 2. Minimally evident chronic fracture plane at the subcapital-transcervical left femoral neck with a dynamic screw fixation in place. The degree of osteopenia limits evaluation of the underlying osseous structure. 3. Interval development of a moderate compression fracture of T5 new since the prior CT in November. 4. Chronic diverticular disease of the sigmoid colon. 5. Chronic bladder outlet obstruction with mild prostatomegaly.
[2019-01-02] MEDS: LIDOCAINE 5% 1 PATCH TD SCH (18:00)
--- NOTE | 2019-01-02 22:27 | Hospitalist Progress Note ---
Date of Service January 02, 2019 Assessment & Plan (1) Hip pain, left: Unable to bear weight Imaging as noted Recent L hip fracture and repair, ortho c/s pending PT/OT for rehab placement Toradol for pain, if no help can try morphine Heat applications On 01/02 Patient continues to have large amount of pain. Will order lidoderm patch. Awaiting placement. (2) Alcohol abuse: Pt states he usually drinks 7-8 beers daily. Alcohol withdrawal protocol with gabapentin loading and maintenance dosing (3) DVT prophylaxis: SCDs for now Spent 25 minutes in management of patient. Subjective Patient reports he continues to have pain. Patient states no significant improvement in his symptoms. Review of Systems Review of Systems: All systems reviewed & are unremarkable except as noted in HPI & below Physical Exam Physical Exam: Constitutional: WD/WN, vitals as above + disheveled Pt smells of alcohol when going near to examine Eyes: normal visual forbes by confrontation and + anicteric sclerae Neck: normal visual inspection and trachea midline Respiratory: normal respiratory effort, lungs clear to auscultation Cardiovascular: Rate/Rhythm: regular rate and regular rhythm Gastrointestinal (Abdomen): Inspection/Auscultation: abdomen not distended Percussion/Palpation: abdomen soft; abdomen nontender Musculoskeletal: Head/Neck/Chest: normocephalic and head atraumatic negative for edema, peripheral pulses intact Skin: no rashes, warm and dry Neurologic: awake; not confused Speech / Cognition: normal speech Psychiatric: A+Ox3, euthymic affect Results & Data Vital Signs (Past 12 Hours) Vital Signs Temp Pulse Pulse Resp BP Pulse Ox 01/02/19 19:27 36.9 C 92 H 21 167/89 H 96 01/02/19 16:00 36.8 C 94 H 85 19 167/96 H 95 01/02/19 14:47 95 PG Care Time/CCT Total # of Minutes Spent Total Time Spent with Patient: Total time spent is greater than 50% in coordination of care (as documented) at patient's floor/unit and/or counseling patient:
[2019-01-03] MEDS: GABAPENTIN 400 MG CAP PO SCH ×3 (05:11→23:03)
--- NOTE | 2019-01-03 08:47 | Orthopedic Progress Note ---
Date of Service January 03, 2019 Assessment & Plan (1) Hip pain, left: Cont PT/OT while in house Cont pain control with ice and non-narcotic oral pain medication Will need new walker Medicine will cont to manage patient DVT prophylaxis per primary team Case management to follow Patient may need placement in Rehab or SNF Follow-up Dr. Haynes in 4 weeks. (2) Contusion of knee, left: Subjective Still complains of pain in the hip. Asking for more pain medication. Physical Exam Physical Exam: R hip: incision c/d/i. Mild ttp. Flexes, extends, abducts/adducts against resistance. Ambulating with walker. NVI Results & Data Vital Signs (Past 12 Hours) Vital Signs Temp Pulse Pulse Resp BP BP Pulse Ox 01/03/19 07:02 36.8 C 87 18 138/88 95 01/03/19 03:56 179/97 H 01/03/19 03:50 36.9 C 79 20 179/100 H 99 01/02/19 23:58 91 H 01/02/19 22:56 36.6 C 81 22 159/97 H 96
[2019-01-03] MEDS: KETOROLAC 30 MG/ML VIAL IV PRN ×2 (09:36→20:25)
[2019-01-03] MEDS: ACETAMINOPHEN 325 MG TAB PO PRN ×2 (09:41→19:30)
[2019-01-03] MEDS: LIDOCAINE 5% 1 PATCH TD SCH (18:24)
[2019-01-04] MEDS ORDERED: METOPROLOL TARTRATE 25 MG TAB PO STA (03:31)
[2019-01-04] MEDS: KETOROLAC 30 MG/ML VIAL IV PRN ×2 (05:56→13:14)
[2019-01-04] MEDS: LIDOCAINE 5% 1 PATCH TD SCH (10:16)
[2019-01-04] MEDS: ACETAMINOPHEN 325 MG TAB PO PRN ×2 (10:16→19:41)
[2019-01-04] MEDS: GABAPENTIN 400 MG CAP PO SCH (13:14)
--- NOTE | 2019-01-04 17:16 | Hospitalist Progress Note ---
Date of Service January 03, 2019 Assessment & Plan (1) Hip pain, left: Unable to bear weight Imaging as noted Recent L hip fracture and repair, ortho c/s pending PT/OT for rehab placement Toradol for pain, if no help can try morphine Heat applications On 01/03 Patient continues to have large amount of pain. Lidoderm patch is improving pain. Pharmacy though placed order from 17:00 to 5:00. Informed nursing staff to fix this and ordered to take off at midnight and resume in AM. Awaiting placement. (2) Alcohol abuse: Pt states he usually drinks 7-8 beers daily. Alcohol withdrawal protocol with gabapentin loading and maintenance dosing (3) DVT prophylaxis: SCDs for now Spent 25 minutes in management of patient. Subjective Late entry for 01/03/19 Patient reports no new symptoms. Review of Systems Review of Systems: All systems reviewed & are unremarkable except as noted in HPI & below Physical Exam Physical Exam: Constitutional: WD/WN, vitals as above Eyes: normal visual forbes by confrontation and + anicteric sclerae Neck: normal visual inspection and trachea midline Respiratory: normal respiratory effort, lungs clear to auscultation Cardiovascular: Rate/Rhythm: regular rate and regular rhythm Gastrointestinal (Abdomen): Inspection/Auscultation: abdomen not distended Percussion/Palpation: abdomen soft; abdomen nontender Musculoskeletal: Head/Neck/Chest: normocephalic and head atraumatic negative for edema, peripheral pulses intact Skin: no rashes, warm and dry Neurologic: awake; not confused Speech / Cognition: normal speech Psychiatric: A+Ox3, euthymic affect Results & Data Vital Signs (Past 12 Hours) Vital Signs Temp Pulse Pulse Resp BP Pulse Ox 01/04/19 15:44 36.5 C 92 H 18 136/83 96 01/04/19 15:31 82 01/04/19 11:52 36.7 C 82 19 119/86 97 01/04/19 07:16 37.1 C 75 19 126/83 93 PG Care Time/CCT Total # of Minutes Spent Total Time Spent with Patient: Total time spent is greater than 50% in coordination of care (as documented) at patient's floor/unit and/or counseling patient:
--- NOTE | 2019-01-04 23:00 | Hospitalist Progress Note ---
Date of Service January 04, 2019 Assessment & Plan (1) Hip pain, left: Unable to bear weight Imaging as noted Recent L hip fracture and repair, ortho c/s pending PT/OT for rehab placement Toradol for pain, if no help can try morphine Heat applications On 01/03 Patient continues to have large amount of pain. Lidoderm patch is improving pain. Pharmacy though placed order from 17:00 to 5:00. Informed nursing staff to fix this and ordered to take off at midnight and resume in AM. Awaiting placement. On 01/04 Pain appears controlled. Patient has been denied multiple facilities for rehab in [place]. Options available outside of [place]. Initially refusing to go to any facility outside of [place] and plan was to discharge home. However once he was going to be discharged, he states he would be open to a facility outside of [place] (2) Alcohol abuse: Pt states he usually drinks 7-8 beers daily. Alcohol withdrawal protocol with gabapentin loading and maintenance dosing Currntly not showing signs of withdrawal. (3) DVT prophylaxis: SCDs for now Spent 35 minutes in management of patient. Had extensive discussion with patient on placement and discussion with case management. Subjective 53 yo male reports he does not want to go home and would be interested in perhaps a facility outside of [place]. He denies any new complaints. He states he feels unsteady on his feet. Review of Systems Review of Systems: All systems reviewed & are unremarkable except as noted in HPI & below Physical Exam Physical Exam: Constitutional: WD/WN, vitals as above Eyes: normal visual forbes by confrontation and + anicteric sclerae Neck: normal visual inspection and trachea midline Respiratory: normal respiratory effort, lungs clear to auscultation Cardiovascular: Rate/Rhythm: regular rate and regular rhythm Gastrointestinal (Abdomen): Inspection/Auscultation: abdomen not distended Percussion/Palpation: abdomen soft; abdomen nontender Musculoskeletal: Head/Neck/Chest: normocephalic and head atraumatic negative for edema, peripheral pulses intact Skin: no rashes, warm and dry Neurologic: awake; not confused Speech / Cognition: normal speech Psychiatric: A+Ox3, euthymic affect Results & Data Vital Signs (Past 12 Hours) Vital Signs Temp Pulse Pulse Resp BP Pulse Ox 01/04/19 22:53 91 H 01/04/19 19:31 36.9 C 86 18 151/87 H 95 01/04/19 15:44 36.5 C 92 H 18 136/83 96 01/04/19 15:31 82 01/04/19 11:52 36.7 C 82 19 119/86 97 PG Care Time/CCT Total # of Minutes Spent Total Time Spent with Patient: Total time spent is greater than 50% in coordination of care (as documented) at patient's floor/unit and/or counseling patient:
[2019-01-05] MEDS: ACETAMINOPHEN 325 MG TAB PO PRN ×3 (09:02→19:57)
[2019-01-05] MEDS: LIDOCAINE 5% 1 PATCH TD SCH (09:03)
[2019-01-05] MEDS ORDERED: GABAPENTIN 400 MG CAP PO SCH (12:00)
[2019-01-05] MEDS: THIAMINE HCL 100 MG TAB PO SCH (19:59)
--- NOTE | 2019-01-05 23:55 | Hospitalist Progress Note ---
Date of Service January 05, 2019 Assessment & Plan (1) Hip pain, left: Unable to bear weight Imaging as noted Recent L hip fracture and repair, ortho c/s pending PT/OT for rehab placement Toradol for pain, if no help can try morphine Heat applications On 01/03 Patient continues to have large amount of pain. Lidoderm patch is improving pain. Pharmacy though placed order from 17:00 to 5:00. Informed nursing staff to fix this and ordered to take off at midnight and resume in AM. Awaiting placement. On 01/04 Pain appears controlled. Patient has been denied multiple facilities for rehab in [place]. Options available outside of [place]. Initially refusing to go to any facility outside of [place] and plan was to discharge home. However once he was going to be discharged, he states he would be open to a facility outside of [place] On 01/05 Patient appears improved. Patient ambulating in room. Patient though is non compliant as an outpatient. He misses his outpatient visits, now again refusing placement. He wants to stay in the hospital for a week. Will discharge patient in AM. EXPLAINED TO PATIENT that he will be sent home tomorrow via taxi. Patient has 48 hours to refuse discharge, compromise was to keep him overnight and discharge on monday. (2) Alcohol abuse: Pt states he usually drinks 7-8 beers daily. Alcohol withdrawal protocol with gabapentin loading and maintenance dosing Currently not showing signs of withdrawal. (3) DVT prophylaxis: SCDs for now Spent 35 minutes in management of patient. Had extensive discussion with patient on placement and discussion with case management. Subjective Patient stating that he is unable to go home because he feels unsteady. He states he would like to be in the hopsital for another 2 weeks until he is more steady. Nursing though has seen him ambulate without a walker in the room. Patient also does not have a PCP as he no showed, per case managemnet. This is causing difficulty in obtaining home health. Patient states he will try not to drink when he goes home. Review of Systems Review of Systems: All systems reviewed & are unremarkable except as noted in HPI & below Physical Exam Physical Exam: Constitutional: WD/WN, vitals as above Eyes: normal visual forbes by confrontation and + anicteric sclerae Neck: normal visual inspection and trachea midline Respiratory: normal respiratory effort, lungs clear to auscultation Cardiovascular: Rate/Rhythm: regular rate and regular rhythm Gastrointestinal (Abdomen): Inspection/Auscultation: abdomen not distended Percussion/Palpation: abdomen soft; abdomen nontender Musculoskeletal: Head/Neck/Chest: normocephalic and head atraumatic negative for edema, peripheral pulses intact Skin: no rashes, warm and dry Neurologic: awake; not confused Speech / Cognition: normal speech Psychiatric: A+Ox3, euthymic affect Results & Data Vital Signs (Past 12 Hours) Vital Signs Temp Pulse Pulse Resp BP BP Pulse Ox 01/05/19 23:13 84 01/05/19 19:04 36.8 C 91 H 18 175/94 H 171/85 H 98 01/05/19 15:29 36.3 C L 85 18 156/88 H 99 PG Care Time/CCT Total # of Minutes Spent Total Time Spent with Patient: Total time spent is greater than 50% in coor dination of care (as documented) at patient's floor/unit and/or counseling patient:
[2019-01-06] MEDS: LIDOCAINE 5% 1 PATCH TD SCH (08:41)
[2019-01-06] MEDS: ACETAMINOPHEN 325 MG TAB PO PRN ×2 (08:46→13:42)
[2019-01-06] MEDS: THIAMINE HCL 100 MG TAB PO SCH ×2 (08:46→13:42)
--- NOTE | 2019-01-06 13:05 | Discharge Summary ---
Date of Service January 06, 2019 Admission HPI Per Admitting Provider Side Note: This is a [facility] patient. If ever readmitted, please ADMIT TO [facility] Hospitalist Team. Seen by [facility] Hospitalist Team in past. Admitted under [facility] Service service by error. (Has [email or web address] insurance) 53 y/o M c/o L hip pain. Pt reports that he fell 3 days ago and has had pain since that time. Pt states he was walking across the parking lot of his apt complex when he could not bear weight. Someone had to help him back to his apt. He states this happened again the next day. Today, he could not even bear weight to get out of bed and had to call an ambulance to bring him here. He states he did not trip or lose his balance, he just could not bear weight. He is having L LE pain to his hip into his thigh. No back pain. Pt was recently a pt with [facility] last month s/p hip fracture and repair. He expressed interest in going there today, however CM rep from stated that even if PT/OT was done in the ED, there would be no way to get an insurance auth approved from insurance plan. Pt denies fever, SOB, chest pain, abd pain, n/v/c/d, LE swelling. Pt states he usually drinks 7-8 beers daily. No liquor use. He says his last beer was 2 days ago. Denies hx of DVTs but states he does get shaky at times. Principal Diagnosis Uncontrolled pain from mechanical fall Discharge Exam Constitutional: WD/WN, vitals as above Eyes: normal visual forbes by confrontation and + anicteric sclerae Neck: normal visual inspection and trachea midline Respiratory: normal respiratory effort, lungs clear to auscultation Cardiovascular: Rate/Rhythm: regular rate and regular rhythm Gastrointestinal (Abdomen): Inspection/Auscultation: abdomen not distended Per cussion/Palpation: abdomen soft; abdomen nontender Musculoskeletal: Head/Neck/Chest: normocephalic and head atraumatic negative for edema, peripheral pulses intact Skin: no rashes, warm and dry Neurologic: awake; not confused Speech / Cognition: normal speech Psychiatric: A+Ox3, euthymic affect Discharge Data Allergies Allergy/AdvReac Type Severity Reaction Status Date / Time Penicillins AdvReac Mild TIRED Verified 01/01/19 13:54 hydralazine AdvReac Vomiting Verified 01/02/19 06:11 Consultations 01/01/19 15:02 ED Decision to Admit Stat 01/01/19 19:00 Consult Case Management - Discharge Planning Routine Consult Orthopedic Surgery Routine Ordered Studies 01/01/19 15:01 CT pelvis wo con Stat Hospital Course (1) Hip pain, left: This is a [facility] patient. If ever readmitted, please ADMIT TO [facility] Hospitalist Team. Seen by [facility] Hospitalist Team in past. Admitted under our service by error. (Has [email or web address] insurance) Unable to bear weight Imaging as noted Recent L hip fracture and repair, ortho c/s pending PT/OT for rehab placement Toradol for pain, if no help can try morphine Heat applications On 01/03 Patient continues to have large amount of pain. Lidoderm patch is improving pain. Pharmacy though placed order from 17:00 to 5:00. Informed nursing staff to fix this and ordered to take off at midnight and resume in AM. Awaiting placement. On 01/04 Pain appears controlled. Patient has been denied multiple facilities for rehab in [place]. Options available outside of [place]. Initially refusing to go to any facility outside of [place] and plan was to discharge home. However once he was going to be discharged, he states he would be open to a facility outside of [place] On 01/05 Patient appears improved. Patient ambulating in room. Patient though is non compliant as an outpatient. He misses his outpatient visits, now again refusing placement. He wants to stay in the hospital for a week. Will discharge patient in AM. EXPLAINED TO PATIENT that he will be sent home tomorrow via taxi. Patient has 48 hours to refuse discharge, compromise was to keep him overnight and discharge on monday. On 01/06 Patient was discharged home. All of the patient's questions were answered. (2) Alcohol abuse: Pt states he usually drinks 7-8 beers daily. Alcohol withdrawal protocol with gabapentin loading and maintenance dosing Currently not showing signs of withdrawal. (3) DVT prophylaxis: SCDs for now Total Time Total Time Spent Total Time Spent (In Minutes): 32 Total Time Includes: Examination of the Patient, Discharge Planning and Medication Reconciliation Discharge Plan Discharge Items Patient Disposition: Home - Self-Care Reason For Visit: INABILITY TO BEAR WEIGHT Discharge Diagnosis: Fall/ alcohol withdrawal Discharge Goals: Decrease discomfort Activity: Resume your previous activity Non-emergency contact: Primary Care Provider Call non-emergency contact if: you have any medication questions Follow-up/Referrals: PCP,NO [Primary Care Provider] - Diet: Regular Addtl Provider Instructions: Limit alcohol while using tylenol. Use walker when ambulating. Prescriptions: New thiamine HCl (vitamin B1) 100 mg tablet 100 mg PO TID Qty: 60 RF: 0 lidocaine 4 % adhesive patch,medicated 1 patch topical QAM Qty: 30 RF: 0 acetaminophen [Mapap (acetaminophen)] 325 mg Tablet 650 mg PO Q4H PRN (Reason: pain) Qty: 0 RF: 0 Stand-Alone Forms: [facility] Discharge Orders: Discharge Order (Routine); Ordered 01/06/19 Ordered By: Trevor Enriquez Admission Data Admit Date/Time: 01/01/19 17:58 Attending Provider: Trevor Enriquez Admit Provider: Brandy Guerrero Primary Care Provider: PCP,NO Other Providers: Brandy Guerrero Paul K Service: Telemetry Medical Other Interventions: Discharge Summary Assessment (RN) Last Done: 01/06/19 14:05 DC Date/Time DO NOT enter until pt leaves facility: 01/06/19 14:41
== END 2019-01-06 14:41 | disposition home or self-care (01) | DRG 556 ==
LOC: ED 12:26 → SUATTDRO 17:58 → 2W 17:58
DX: S80.02XA Contusion of left knee, initial encounter; W19.XXXA Unspecified fall, initial encounter; I10 Essential (primary) hypertension; F10.20 Alcohol dependence, uncomplicated; Z88.0 Allergy status to penicillin; M25.552 Pain in left hip; Z87.891 Personal history of nicotine dependence; Z80.9 Family history of malignant neoplasm, unspecified; Z82.49 Family history of ischemic heart disease and other diseases of the circulatory system

== ENCOUNTER 2019-01-16 16:55 | Inpatient (IN) ==
[2019-01-16 18:30] LABS: Albumin Globulin Ratio 0.9 (0.9-2); Albumin Level 3.9 gm/dl (3.4-5.0); BUN Creatinine Ratio 6.5 (10-20); Bilirubin,Total 0.4 mg/dl (0.2-1); Calcium 8.4 mg/dl (8.5-10.1); Creatinine Clr Calc Pharmacy 138.6 ml/min; Globulin 4.4 gm/dl (2.5-4.0); Total Protein 8.3 gm/dl (6.4-8.2)
[2019-01-16 19:20] LABS: Potassium 4.4 mmol/L (3.5-5.1)
--- NOTE | 2019-01-16 20:48 | Emergency Department Note ---
ED Visit Note The patient was taken in signout from Dr. Hernandez at the change of shift. Please see that note for details. The patient was pending clearance of his alcohol intoxication. Patient was resting comfortably. Stable manager cardiac cath. Signed out to at the change of shift. . : Alcohol intoxication Qualifiers: Complication of substance-induced condition: with unspecified complication Qualified Code(s): F10.929 - Alcohol use, unspecified with intoxication, unspecified
--- NOTE | 2019-01-16 20:53 | Emergency Department Note ---
Entered by Gardenia Berry acting as a scribe for History of Present Illness General Chief complaint: Alcohol Intoxication Time Seen by Provider: 01/16/19 16:57 Source: patient Limitations: intoxication History of Present Illness Onset (ago): minute(s) (prior to arrival) Pain Consistency: + other (episode) Maximum Pain Intensity: 4 Quality: + other (alcohol intoxication) Associated symptoms: + denies other symptoms (any pain and falling) The patient is a 53 male w/ PMHx Esophageal tear, Dementia, Subgaleal hemorrhage, HTN, Alcoholism, esophageal stricture, aortic root dilation who presents to the ED w/ CC of an episode of an alcohol intoxication occurring prior to arrival. Per nursing staff, the patient was found stumbling around [place] the [place] not making any sense. They report that the patient denies falling. The patient notes that he had 2-3 beers. He denies using drugs, tobacco, and having any pain. HPI and ROS are limited secondary to alcohol intoxication. Home Medications Home Medications Medication Instructions Recorded Confirmed Type Unobtainable 01/16/19 01/16/19 History Allergies Allergy/AdvReac Type Severity Reaction Status Date / Time Penicillins AdvReac Mild TIRED Verified 01/16/19 17:04 hydralazine AdvReac Vomiting Verified 01/16/19 17:04 Past Med/Surg History Medical History Esophageal stenosis DVT prophylaxis Esophageal tear Aortic root dilation Dementia Subgaleal hemorrhage Chronic hyponatremia History of esophageal stricture History of esophageal dilatation Hx of fracture of hip Hypertension (Chronic) Alcoholism (Chronic) Ambulatory dysfunction (Chronic) Dysphagia (Chronic) "h/o esophageal stricture s/p dilation in past" Frequent falls (Chronic) Tobacco abuse Surgical History History of esophagogastroduodenoscopy (EGD) History of hip surgery s/p fall and fx Family History Other Cancer Hypertension Social History Preferred Language: Northern Irish Communication Ability: Effective Visual Impairment: No Limitations Hearing Ability: Hard of Hearing Beliefs That Will Affect Care: None marital status: Single Current Living Situation: Alone and Homeless Feels Safe at Home: Yes Smoking Status: Former smoker Tobacco Type: cigarettes Second Hand Exposure: No Hx Alcohol Use: Yes Alcohol type: beer Alcohol Intake Frequency Comment: 7-10 beers a day, uncertain which kind of beer Hx Substance Use: No Review of Systems HPI and ROS are limited secondary to alcohol intoxication. Physical Exam Vital Signs Vital Signs - 24 hr 01/16/19 16:50 01/16/19 17:19 01/16/19 18:02 Temperature 36.8 C Temperature Source Oral Sepsis Recent Fever Within 48 Hours No Sepsis New/Unexplained Change in Mental Status No Sepsis Action Taken by Nursing No Action Required Pulse Rate 76 63 Pulse Rate from SpO2 Sensor 63 Respiratory Rate 20 16 Blood Pressure 146/88 H 141/85 H Blood Pressure Mean 107 103 Pulse Oximetry 99 98 98 Oxygen Delivery Method Room Air Room Air Room Air 01/16/19 18:30 01/16/19 19:01 01/16/19 19:30 Temperature Temperature Source Sepsis Recent Fever Within 48 Hours Sepsis New/Unexplained Change in Mental Status Sepsis Action Taken by Nursing Pulse Rate 65 82 66 Pulse Rate from SpO2 Sensor 68 80 66 Respiratory Rate 15 17 13 Blood Pressure 141/84 H 144/81 H 104/62 Blood Pressure Mean 103 102 76 Pulse Oximetry 95 98 94 Oxygen Delivery Method 01/16/19 20:00 Temperature Temperature Source Sepsis Recent Fever Within 48 Hours Sepsis New/Unexplained Change in Mental Status Sepsis Action Taken by Nursing Pulse Rate 67 Pulse Rate from SpO2 Sensor 67 Respiratory Rate 14 Blood Pressure 103/65 Blood Pressure Mean 77 Pulse Oximetry 94 Oxygen Delivery Method Room Air GENERAL: Chronically ill appearing, NAD, non-toxic. EYE EXAM: Normal conjunctiva. PERRL, no anisocoria and EOM's grossly intact w/o pain. OROPHARYNX: Poor dentition, moist mucous membranes. NECK: Supple, no nuchal rigidity, no adenopathy, non-tender. No signs of meningismus. LUNGS: Clear to auscultation. Normal chest wall mechanics. HEART: NSR, no MRG. ABDOMEN: Abdomen soft, non-tender, normo-active bowel sounds, no masses, no rebound or guarding. BACK: No CVA TTP. SKIN: No rashes and no bruising. UPPER EXTREMITIES: Upper extremities are grossly normal. LOWER EXTREMITIES: No pitting edema. No calf pain. No pain with palpation. NEURO EXAM: Awake, alert. Intermittently follows commands. Mild dysarthria. Course 1702: Past medical records reviewed. The patient was evaluated in room B8. A complete history and physical exam was performed. 1920: I reevaluated the patient and he is resting comfortably. 2029: The patient was signed out to Dr. Espitia at change of shift. Medical Decision Making Medical Records Attestation: I reviewed the patient's medical records. Home Medications Current Medication List: was personally reviewed by me Laboratory Data Attestation: I reviewed the patient's lab results. Result diagrams: 01/16/19 18:53 Lab Results 01/16/19 01/16/19 01/16/19 Range/Units 17:42 17:42 17:48 Sodium 134 L (136-145) mmol/L Potassium (3.5-5.1) mmol/L Chloride 100 (98-107) mmol/L Carbon Dioxide 21 (21-32) mmol/L Anion Gap 13.0 H (3-11) BUN 3 L (7-18) mg/dl Creatinine 0.53 L (0.6-1.4) mg/dl Est Cr Clr Drug Dosing 138.6 ml/min Est GFR ( Amer) 139.0 Est GFR (Non-Af Amer) 120.0 BUN/Creatinine Ratio 6.5 L (10-20) Glucose 77 (70-99) mg/dl POC Glucose 80 (70-99) Calcium 8.4 L (8.5-10.1) mg/dl Total Bilirubin 0.4 (0.2-1) mg/dl AST (15-37) U/L ALT 21 (12-78) U/L Alkaline Phosphatase 115 (45-117) U/L Total Protein 8.3 H (6.4-8.2) gm/dl Albumin 3.9 (3.4-5.0) gm/dl Globulin 4.4 H (2.5-4.0) gm/dl Albumin/Globulin Ratio 0.9 (0.9-2) Specimen Hemolysis Ethyl Alcohol mg/dL 435.0 H (0-3) mg/dl 01/16/19 Range/Units 18:53 Sodium (136-145) mmol/L Potassium 4.4 (3.5-5.1) mmol/L Chloride (98-107) mmol/L Carbon Dioxide (21-32) mmol/L Anion Gap (3-11) BUN (7-18) mg/dl Creatinine (0.6-1.4) mg/dl Est Cr Clr Drug Dosing ml/min Est GFR ( Amer) Est GFR (Non-Af Amer) BUN/Creatinine Ratio (10-20) Glucose (70-99) mg/dl POC Glucose (70-99) Calcium (8.5-10.1) mg/dl Total Bilirubin (0.2-1) mg/dl AST 37 (15-37) U/L ALT (12-78) U/L Alkaline Phosphatase (45-117) U/L Total Protein (6.4-8.2) gm/dl Albumin (3.4-5.0) gm/dl Globulin (2.5-4.0) gm/dl Albumin/Globulin Ratio (0.9-2) Specimen Hemolysis Ethyl Alcohol mg/dL (0-3) mg/dl Blood Pressure Blood Pressure Findings: Normal blood pressure Blood Pressure Disposition: did not require urgent referral MDM Narrative The patient is a 53 male w/ PMHx Esophageal tear, Dementia, Subgaleal hemorrhage, HTN, Alcoholism, esophageal stricture, aortic root dilation who p resents to the ED w/ CC of an episode of an alcohol intoxication occurring prior to arrival. Etiologies such as alcohol intoxication, toxicological, infection, hypoglycemia, electrolyte abnormalities, cardiac sources, intracerebral event, neurologic, as well as others were entertained. Patient was seen and divided the bedside. The patient had been brought in due to concern for alcohol abuse and overdose. Patient is currently maintaining his airway and is hard of hearing but does respond appropriately to questions. The patient did have blood work completed along with an alcohol level which shows 425. I believe the patient would be medically and clinically sober in approximately 13 hours. The patient was signed out to the evening physician pending reassessment disposition. Impression & Plan Alcohol intoxication Discharge Plan Visit Data Chief Complaint: Alcohol Intoxication ED Provider: David Espitia Discharge Problem: Alcohol intoxication Patient Disposition: Still a Patient Forms Stand Alone Forms: [employer] Prescriptions Prescriptions: No Action Unobtainable RF: 0 Referrals Referrals: PCP,NO [Primary Care Provider] - Discharge Problem: Alcohol intoxication Qualifiers: Complication of substance-induced condition: with unspecified complication Qualified Code(s): F10.929 - Alcohol use, unspecified with intoxication, unspecified The scribe's documentation has been prepared under my direction and personally reviewed by me in its entirety. I confirm that the note above accurately reflects all work, treatment, procedures, and medical decision making performed by me.
--- NOTE | 2019-01-17 04:10 | Emergency Department Note ---
ED Visit Note This case was signed out to me at change of shift awaiting sobriety. 0645: The patient is fully awake. Upon awakening, he did have some nausea and dry heaving. He is feeling better at this time. The patient is being evaluated by ED case management. Nursing staff will walk the patient. The patient adamantly refused to get out of bed to attempt ambulation stating that his left hip hurts. He requested to stay in bed for approximately 4 to 5 hours from now and then try again. I offered the patient admission to a halfway and he gladly accepted. He told me that he would be happy to go to a nursing facility where they could care for him. I told him that he would not be able to drink alcohol there and he said that would be fine. I had a lengthy discussion with case management with regards to his previous social service evaluations and the possibility for placement. I discussed the case with Dr. Gregory and she will evaluate the patient for further management. . : Alcohol intoxication Qualifiers: Complication of substance-induced condition: with unspecified complication Qualified Code(s): F10.929 - Alcohol use, unspecified with intoxication, unspecified
--- NOTE | 2019-01-17 08:02 | History & Physical Report ---
Date of Service January 17, 2019 Assessment & Plan (1) Alcohol intoxication: Continue supportive care and treatment with antiemetics as needed. Alcohol withdrawal protocol in place. Currently not exhibiting any signs of withdrawal but will watch closely in the next 24 to 48 hours for this. Banana bag and daily thiamine ordered. (2) Alcohol abuse: Plan as above. (3) DVT prophylaxis: Lovenox Full code Disposition-MedSurg. Case management consulted to assist with possible placement of patient into a fpc. Sully Gregory DO [facility] Hospitalist History of Present Illness Chief Complaint: Alcohol intoxication Primary Care Provider: NO PCP 53-year-old alcoholic male who is frequently admitted to the hospital presented to the ER after being picked up while walking [place] the [place]. He has a long history of chronic hip pain and uses a walker which he was found to be carrying with him. He denies pain at this time, and during the exam it appears his intoxication is resolving.He is not demonstrating any signs of withdrawal at this time alcohol level on arrival was 435. The patient admits to drinking 12 beers, but he is not sure. He does not remember how he got downtown. He states that he is in a new place that he hates and he wants a new living situation. We discussed that a fpc is a place for people who cannot take care of themselves and he shrugged his shoulders. When I asked him what he would like us to do for him, he reported that he just needed to lay here for a while. Review of systems is otherwise negative. Allergies Allergy/AdvReac Type Severity Reaction Status Date / Time Penicillins AdvReac Mild TIRED Verified 01/16/19 17:04 hydralazine AdvReac Vomiting Verified 01/16/19 17:04 Home Medications Home Medications Medication Instructions Recorded Confirmed Type No Known Home Medications 01/17/19 01/17/19 History Past Med/Surg History Medical History Esophageal stenosis DVT prophylaxis Esophageal tear Aortic root dilation Dementia Subgaleal hemorrhage Chronic hyponatremia History of esophageal stricture History of esophageal dilatation Hx of fracture of hip Hypertension (Chronic) Alcoholism (Chronic) Ambulatory dysfunction (Chronic) Dysphagia (Chronic) "h/o esophageal stricture s/p dilation in past" Frequent falls (Chronic) Tobacco abuse Surgical History History of esophagogastroduodenoscopy (EGD) History of hip surgery s/p fall and fx Family History Other Cancer Hypertension Social History Preferred Language: Samoan Communication Ability: Effective Visual Impairment: No Limitations Hearing Ability: Hard of Hearing Beliefs That Will Affect Care: None marital status: Single Current Living Situation: Alone and Homeless Feels Safe at Home: Yes Smoking Status: Former smoker Tobacco Type: cigarettes Second Hand Exposure: No Hx Alcohol Use: Yes Alcohol type: beer Alcohol Intake Frequency Comment: 7-10 beers a day, uncertain which kind of beer Hx Substance Use: No Review of Systems Review of Systems: At least 10 systems were reviewed and negative, however, alcohol intoxication and willingness to participate in the interview is a limiting the flow of information. Physical Exam Physical Exam: CONSTITUTIONAL: WNWD, vitals as above, generally well- appearing EYES: PERRL, normal conjunctivae, no scleral icterus ENT: MMM NECK: trachea midline RESPIRATORY: clear to auscultation bilaterally, no crackles, rales or wheezes, normal respiratory effort CARDIOVASCULAR: regular rate and rhythm, S1 and 2 heard without murmurs, gallops or rubs, no JVD, no peripheral edema, no carotid bruits CHEST: inspection of chest was normal GASTROINTESTINAL: normal bowel sounds, soft, nontender, nondistended MUSCULOSKELETAL: moves all extremities equally but is generally weak SKIN: warm and dry NEUROLOGIC: Intoxicated, some lateral deviation of the L eye, otherwise CN 2-12 grossly intact, normal speech PSYCHIATRIC: alert and answering questions appropriately Results & Data Vital Signs (Past 12 Hours) Vital Signs Pulse Pulse Resp BP BP Pulse Ox 01/17/19 07:03 86 16 121/74 01/17/19 06:30 75 12 139/80 100 01/17/19 06:00 83 16 111/68 94 01/17/19 05:30 81 15 104/67 94 01/17/19 05:00 78 19 118/67 95 01/17/19 04:30 84 20 111/67 95 01/17/19 04:00 82 15 126/72 97 07/04/19 03:30 83 21 122/73 97 01/17/19 03:00 76 20 118/72 95 01/17/19 02:30 74 17 112/66 94 01/17/19 02:00 73 13 128/71 98 01/17/19 01:30 71 13 117/73 97 01/17/19 01:00 68 27 H 103/57 L 92 01/17/19 00:30 98 H 17 107/62 93 01/17/19 00:00 70 14 116/65 96 01/16/19 23:30 68 14 109/64 92 01/16/19 22:30 77 16 103/63 93 01/16/19 22:00 78 13 111/67 97 01/16/19 21:33 96 H 20 123/75 01/16/19 21:00 89 17 119/76 95 01/16/19 20:30 74 16 125/80 95 Laboratory Results BMP 01/16/19 01/16/19 17:42 18:53 Sodium 134 L Potassium 4.4 Chloride 100 Carbon Dioxide 21 BUN 3 L Creatinine 0.53 L Glucose 77 Calcium 8.4 L Liver Function 01/16/19 01/16/19 Range/Units 17:42 18:53 Total Bilirubin 0.4 (0.2-1) mg/dl AST 37 (15-37) U/L ALT 21 (12-78) U/L Alkaline Phosphatase 115 (45-117) U/L Albumin 3.9 (3.4-5.0) gm/dl Code Status & VTE Plan Code Status Full VTE Prophylaxis Plan VTE Prophylaxis will be ordered: Yes Critical Care Time Critical Care Time: No (1) Alcohol intoxication Complication of substance-induced condition: with unspecified complication Qualified Code(s): F10.929 - Alcohol use, unspecified with intoxication, unspecified
[2019-01-17] MEDS ORDERED: ACETAMINOPHEN 325 MG TAB PO PRN (09:56)
[2019-01-17] MEDS ORDERED: POLYETHYLENE (MIRALAX) 17 GM PACK PO PRN (09:56)
[2019-01-17] MEDS ORDERED: GABAPENTIN 1200MG ALCOHOL WITHDRAWAL LOAD PO STA (09:56)
[2019-01-17] MEDS ORDERED: MULTI-VITAMIN INFUSION 10 ML, THIAMINE HCL 100 MG, FOLIC ACID 1 MG in SODIUM CHLORIDE 0... IV SCH (09:56)
[2019-01-17] MEDS ORDERED: LORazepam 1 MG TAB PO PRN ×2 (09:56→11:23)
[2019-01-17] MEDS ORDERED: GABAPENTIN 600 MG TAB PO SCH (10:00)
[2019-01-17 11:42] LABS: Hematocrit (blood only) 35.3 % (42-52); Hemoglobin 11.7 g/dL (14.0-18.0); Mean Corpuscular Hgb Conc 33.1 g/dL (32-36); Mean Corpuscular Volume 88.5 fL (80-100); Mean Platelet Volume 8.4 fL (7.4-10.4); Platelet Count 261 K/uL (130-400); RDW Coefficient of Variation 16.9 % (11.5-14.5); RDW Standard Deviation 55.2 fL (36.4-46.3); Red Blood Count 3.99 M/uL (4.7-6.1); White Blood Count 10.38 K/uL (4.8-10.8)
[2019-01-17] MEDS: THIAMINE HCL 100 MG in SYRINGE 9 ML IV SCH (11:42)
[2019-01-17] MEDS: ENOXAPARIN INJ 40 MG/0.4 ML SYR SQ SCH (11:43)
[2019-01-17] MEDS ORDERED: LORazepam 3 MG/6 ML VIAL IV PRN (12:10)
[2019-01-17] MEDS ORDERED: LORazepam 1 MG/2 ML VIAL IV PRN (12:10)
[2019-01-17] MEDS ORDERED: LORazepam 2 MG/4 ML VIAL IV PRN (12:10)
[2019-01-17] MEDS ORDERED: ATIVAN IV ALCOHOL WITHDRAWL IV SCH (12:15)
[2019-01-17 12:31] LABS: Albumin Level 3.4 gm/dl (3.4-5.0); BUN Creatinine Ratio 14.3 (10-20); Calcium 8.4 mg/dl (8.5-10.1); Est GFR (African American) 135.9; Est GFR (Non-African American) 117.3; Magnesium 1.8 mg/dl (1.8-2.4); Potassium 4.1 mmol/L (3.5-5.1)
[2019-01-17 12:36] LABS: Albumin Globulin Ratio 0.9 (0.9-2); Bilirubin,Total 0.4 mg/dl (0.2-1); Globulin 3.8 gm/dl (2.5-4.0); Phosphorus 4.5 mg/dl (2.5-4.9); Total Protein 7.2 gm/dl (6.4-8.2)
[2019-01-17] MEDS ORDERED: ONDANSETRON INJ 2 MG/ML 2 ML VIAL IV PRN (14:57)
[2019-01-17] MEDS ORDERED: LORazepam 1 MG/2 ML VIAL IV STA (16:30)
[2019-01-17] MEDS: GABAPENTIN 600 MG TAB PO SCH ×2 (16:54→22:02)
[2019-01-17 17:44] LABS: Appearance Urine Clear (Clear); Bilirubin Urine Negative (Negative); Blood Urine Negative (Negative); Color Urine Yellow; Glucose Urine UA Negative (Negative); Leukocyte Esterase Urine Negative (Negative); Nitrite Urine Negative (Negative); Protein Urine Negative (Negative); Specific Gravity Urine 1.017 (1.000-1.030); Urobilinogen Urine Negative (Negative)
[2019-01-17 18:10] LABS: Amphetamines+Metham, Urine Neg (Neg); Barbiturates, Urine Neg (Neg); Benzodiazepine, Urine Neg (Neg); Cocaine, Urine Neg (Neg); MDMA (Ecstacy), Urine Neg (Neg); Methadone, Urine Neg (Neg); Opiate, Urine Neg (Neg); Phencyclidine, Urine Neg (Neg)
[2019-01-17 18:15] LABS: Ketones Urine 3+ (Negative)
[2019-01-17] MEDS: ACETAMINOPHEN 500 MG TAB PO PRN (20:56)
[2019-01-18] MEDS: GABAPENTIN 600 MG TAB PO SCH ×3 (06:18→21:12)
[2019-01-18] MEDS ORDERED: cloNIDine HCl 0.1 MG TAB PO ONE (06:29)
[2019-01-18 07:40] LABS: Hematocrit (blood only) 36.8 % (42-52); Hemoglobin 12.6 g/dL (14.0-18.0); Mean Corpuscular Hgb Conc 34.2 g/dL (32-36); Mean Corpuscular Volume 85.8 fL (80-100); Mean Platelet Volume 9.2 fL (7.4-10.4); Platelet Count 196 K/uL (130-400); RDW Coefficient of Variation 16.7 % (11.5-14.5); RDW Standard Deviation 52.5 fL (36.4-46.3); Red Blood Count 4.29 M/uL (4.7-6.1); White Blood Count 7.73 K/uL (4.8-10.8)
[2019-01-18 08:44] LABS: BUN Creatinine Ratio 11.2 (10-20); Calcium 8.4 mg/dl (8.5-10.1); Creatinine Clr Calc Pharmacy 106.1 ml/min; Est GFR (Non-African American) 109.6; Magnesium 1.7 mg/dl (1.8-2.4); Potassium 3.2 mmol/L (3.5-5.1)
[2019-01-18] MEDS: THIAMINE HCL 100 MG in SYRINGE 9 ML IV SCH (09:31)
[2019-01-18] MEDS: MAGNESIUM SULFATE / D5W 1 GM/100 ML BAG IV SCH ×3 (09:59→11:58)
[2019-01-18] MEDS: POTASSIUM CHLORIDE 20 MEQ TABCR PO SCH ×2 (11:01→16:19)
[2019-01-18] MEDS: ENOXAPARIN INJ 40 MG/0.4 ML SYR SQ SCH (13:37)
[2019-01-18] MEDS: ACETAMINOPHEN 500 MG TAB PO PRN ×2 (14:05→21:15)
--- NOTE | 2019-01-18 14:45 | Hospitalist Progress Note ---
Date of Service January 18, 2019 Assessment & Plan (1) Alcohol intoxication: resolved without signs of withdrawal. Continue gabapentin and Ativan as needed. (2) Alcohol abuse: Patient is declining any rehab programs at this time. He refuses to go to AA because he "does not like it". He does admit that he has a problem and understands that the same scenario may happen again where he takes a bus into town and gets found intoxicated. He does not know the correct solution at this time. (3) Generalized weakness: Likely secondary to alcoholism and disequilibrium related to this and frequent hospitalizations in the setting of deconditioning and chronic hip pain. Continue PT/OT. Attempting to place in half-way facility as a temporary solution but need to overcome obstacles above. (4) DVT prophylaxis: Lovenox Full code Disposition-MedSurg. Case management consulted to assist with possible placement of patient into a chcf. Sully Gregory DO [facility] Hospitalist Subjective Patient is easily distractible and not wanting to talk at this time. We discussed ultimately what he wants from this hospitalization, and he states he just needs a new place to live. He gives reason such as not having a TV and not having anyone to talk to and that his place is far from town. He states that he travels into town simply to have someone to talk to and to be around people. He gets Meals on Wheels delivered to his home. He cannot clarify for me how he obtains beer. He states he understands he has a problem with alcohol but refuses to go to Alcoholics Anonymous and states he has been in 3 rehab programs that have not worked. He has been's kicked out of [facility] because of possession of beer in the past and currently no half-way facility will accept him. His insurance has recently lapsed and case management is having difficulty finding an accepting SNF. The patient states that he has never denied home health in the past despite case management reports that he has not allowed them in the home. This may be an alternative if physical therapy and occupational therapy cannot be performed at his half-way facility. He currently reports some difficulties taking a shower because he cannot manage the walker in the shower and he also has difficulties using the restroom because again he has weakness. He reports chronic hip pain and takes Tylenol for this at home. He states this is unchanged and is using Tylenol here, also. He otherwise denies any symptoms. Review of Systems Review of Systems: All systems reviewed & are unremarkable except as noted in HPI & below Physical Exam Physical Exam: CONSTITUTIONAL: WNWD, vitals as above, generally well- appearing EYES: normal conjunctivae, no scleral icterus ENT: MMM NECK: trachea midline RESPIRATORY: clear to auscultation bilaterally, no crackles, rales or wheezes, normal respiratory effort CARDIOVASCULAR: regular rate and rhythm, S1 and 2 heard without murmurs, gallops or rubs, no JVD, no peripheral edema, no carotid bruits CHEST: inspection of chest was normal GASTROINTESTINAL: normal bowel sounds, soft, nontender, nondistended MUSCULOSKELETAL: moves all extremities equally but is generally weak SKIN: warm and dry NEUROLOGIC: Intoxicated, some lateral deviation of the L eye, otherwise CN 2-12 grossly intact, normal speech PSYCHIATRIC: alert and answering questions appropriately Results & Data Vital Signs (Past 12 Hours) Vital Signs Temp Pulse Resp BP BP Pulse Ox 01/18/19 11:55 36.9 C 83 16 144/94 H 99 01/18/19 07:07 36.9 C 84 18 166/102 H 97 01/18/19 06:05 36.8 C 89 18 175/125 H 96 01/18/19 05:05 37.2 C 90 18 178/106 H 98 01/18/19 03:30 37.1 C 93 H 16 148/88 H 94 Laboratory Results Short CBC 01/18/19 Range/Units 07:16 WBC 7.73 (4.8-10.8) K/uL Hgb 12.6 L (14.0-18.0) g/dL Hct 36.8 L (42-52) % Plt Count 196 (130-400) K/uL BMP 01/18/19 07:16 Sodium 133 L Potassium 3.2 L D Chloride 96 L Carbon Dioxide 29 BUN 7 Creatinine 0.66 Glucose 116 H Calcium 8.4 L Urine 01/17/19 Range/Units 17:32 Urine Color Yellow Urine Appearance Clear (Clear) Urine pH 5.0 (4.5-7.5) Ur Specific [place] 1.017 (1.000-1.030) Urine Protein Negative (Negative) Urine Glucose (UA) Negative (Negative) Medications Administered Current Inpatient Medications Acetaminophen (Tylenol) 500 mg PO Q4H PRN PRN Reason: pain/fever Stop: 02/16/19 20:08 Last Admin: 01/18/19 14:05 Dose: 500 mg Documented by: Enoxaparin Sodium (Lovenox) 40 mg SQ Q24H [facility] Stop: 02/16/19 12:59 Last Admin: 01/18/19 13:37 Dose: 40 mg Documented by: Gabapentin (Neurontin) 600 mg PO Q12H [facility] Stop: 01/19/19 22:01 Gabapentin (Neurontin) 600 mg PO Q24H [facility] Stop: 01/20/19 22:01 Gabapentin (Neurontin) 600 mg PO Q8H [facility] Stop: 01/18/19 22:01 Last Admin: 01/18/19 13:37 Dose: 600 mg Documented by: Thiamine HCl 100 mg/ Syringe 10 mls @ 2 mls/min IV Q24H [facility] Stop: 02/16/19 09:59 Last Admin: 01/18/19 09:31 Dose: 2 mls/hr Documented by: Lorazepam (Ativan) 2 mg in 4 mls @ 4 mls/min IV UD PRN; Protocol PRN Reason: EtOH Withdrawl AWSS Score 8,9 Stop: 02/16/19 12:09 Last Admin: 01/18/19 05:11 Dose: 4 mls/min Documented by: Lorazepam (Ativan) 3 mg in 6 mls @ 4 mls/min IV ONCE PRN; Protocol PRN Reason: EtOH Withdrawl AWSS Score >=10 Stop: 02/16/19 12:09 Lorazepam (Ativan) 1 mg in 2 mls @ 2 mls/min IV UD PRN; Protocol PRN Reason: EtOH Withdrawl AWSS Score 6,7 Stop: 02/16/19 12:09 Last Admin: 01/18/19 06:38 Dose: 2 mls/min Documented by: Lorazepam (Ativan) 1 mg PO ONE PRN; Protocol PRN Reason: EtoH Withdrawal AWSS 6-10 Ondansetron HCl (Zofran) 4 mg IV Q8H PRN PRN Reason: Nausea Stop: 02/16/19 14:56 Last Admin: 01/18/19 06:17 Dose: 4 mg Documented by: Polyethylene Glycol (Miralax Powder Packet) 17 gm PO DAILY PRN PRN Reason: Constipation Stop: 02/16/19 09:55 Potassium Chloride (Klor-Con M20) 40 meq PO Q6H [facility] Stop: 01/18/19 16:01 Last Admin: 01/18/19 11:01 Dose: 40 meq Documented by: (1) Alcohol intoxication Complication of substance-induced condition: with unspecified complication Qualified Code(s): F10.929 - Alcohol use, unspecified with intoxication, unspecified
[2019-01-18] MEDS ORDERED: OXYCODONE HCL IR 5 MG TAB (IMMEDIATE RELEASE) PO STA (23:20)
[2019-01-19] MEDS: THIAMINE HCL 100 MG in SYRINGE 9 ML IV SCH (09:25)
[2019-01-19] MEDS: GABAPENTIN 600 MG TAB PO SCH ×2 (09:25→21:05)
[2019-01-19] MEDS: ACETAMINOPHEN 500 MG TAB PO PRN ×3 (09:26→19:30)
[2019-01-19 10:33] LABS: BUN Creatinine Ratio 10.1 (10-20); Calcium 8.8 mg/dl (8.5-10.1); Creatinine Clr Calc Pharmacy 109.4 ml/min; Est GFR (African American) 128.7; Magnesium 1.9 mg/dl (1.8-2.4); Potassium 4.3 mmol/L (3.5-5.1)
[2019-01-19] MEDS: ENOXAPARIN INJ 40 MG/0.4 ML SYR SQ SCH (14:45)
--- NOTE | 2019-01-19 18:30 | Hospitalist Progress Note ---
Date of Service January 19, 2019 Assessment & Plan (1) Alcohol intoxication: resolved without signs of withdrawal. Continue gabapentin and Ativan as needed. (2) Alcohol abuse: Patient is declining any rehab programs at this time. He refuses to go to AA because he "does not like it". He does admit that he has a problem and understands that the same scenario may happen again where he takes a bus into town and gets found intoxicated. He does not know the correct solution at this time. We spent time discussing his skill sets and desires. 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 He has no computer and we discussed how he could go to the [employer] to use a computer there. He declines participation in AA or other alcoholic rehab program. (3) Generalized weakness: Resolved, he is deconditioned but no longer weak. He was excited and up and about in his room today. He was using his walker. Placing him in a SNF may be futile and he seems to be moving well. Ideally he will go back home and accept home health and get hooked in with a PCP based on his insurance capabilities. Will discuss this with Case Management. (4) DVT prophylaxis: Lovenox Full code Disposition-MedSurg. Likely to home in am. [facility]ully [facility] doing well, I observed him walking around the room without his walker. We discussed many things including how he got into his recent position. 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 He lived with his mom until she and then he lived on his own for a while. He has a problem with alcohol and somewhere along the way he lost his job. He is currently trying to figure out how to wash his urine soaked clothes he was wearing on arrival to the hospital. He [facility] and states he is only given $35 per week and he is not sure what he is going to do. He was offered a taxi voucher home, and is considering it but needed his clothes washed first. He pulled sweat pants and a heavy sweat shirt out of a plastic bag. He is otherwise mentating and ambulating at baseline and tolerating PO. He is asymptomatic at this time. Review of Systems Review of Systems: All systems reviewed & are unremarkable except as noted in HPI & below Physical Exam Physical Exam: CONSTITUTIONAL: WNWD, vitals as above, generally well- appearing, JAMUL EYES: normal conjunctivae, no scleral icterus ENT: MMM NECK: trachea midline RESPIRATORY: clear to auscultation bilaterally, no crackles, rales or wheezes, normal respiratory effort CARDIOVASCULAR: regular rate and rhythm, S1 and 2 heard without murmurs, gallops or rubs, no JVD, no peripheral edema, no carotid bruits CHEST: inspection of chest was normal GASTROINTESTINAL: normal bowel sounds, soft, nontender, nondistended MUSCULOSKELETAL: moves all extremities equally but is generally weak SKIN: warm and dry NEUROLOGIC: Intoxicated, some lateral deviation of the L eye, otherwise CN 2-12 grossly intact, normal speech PSYCHIATRIC: alert and answering questions appropriately Results & Data Vital Signs (Past 12 Hours) Vital Signs Temp Pulse Resp BP Pulse Ox Pulse Ox 01/19/19 15:04 37.2 C 88 20 160/98 H 97 01/19/19 12:53 97 01/19/19 11:19 36.8 C 97 H 18 135/83 95 01/19/19 07:37 37.0 C 73 16 148/88 H 96 Laboratory Results BMP 01/19/19 09:54 Sodium 134 L Potassium 4.3 D Chloride 101 Carbon Dioxide 24 BUN 7 Creatinine 0.64 Glucose 97 Calcium 8.8 Medications Administered Current Inpatient Medications Acetaminophen (Tylenol) 500 mg PO Q4H PRN PRN Reason: pain/fever Stop: 02/16/19 20:08 Last Admin: 01/19/19 14:44 Dose: 500 mg Documented by: Enoxaparin Sodium (Lovenox) 40 mg SQ Q24H [facility] Stop: 02/16/19 12:59 Last Admin: 01/19/19 14:45 Dose: 40 mg Documented by: Gabapentin (Neurontin) 600 mg PO Q12H [facility] Stop: 01/19/19 22:01 Last Admin: 01/19/19 09:25 Dose: 600 mg Documented by: Gabapentin (Neurontin) 600 mg PO Q24H [facility] Stop: 01/20/19 22:01 Lorazepam (Ativan) 2 mg in 4 mls @ 4 mls/min IV UD PRN; Protocol PRN Reason: EtOH Withdrawl AWSS Score 8,9 Stop: 02/16/19 12:09 Last Admin: 01/18/19 05:11 Dose: 4 mls/min Documented by: Lorazepam (Ativan) 3 mg in 6 mls @ 4 mls/min IV ONCE PRN; Protocol PRN Reason: EtOH Withdrawl AWSS Score >=10 Stop: 02/16/19 12:09 Lorazepam (Ativan) 1 mg in 2 mls @ 2 mls/min IV UD PRN; Protocol PRN Reason: EtOH Withdrawl AWSS Score 6,7 Stop: 02/16/19 12:09 Last Admin: 01/18/19 06:38 Dose: 2 mls/min Documented by: Lorazepam (Ativan) 1 mg PO ONE PRN; Protocol PRN Reason: EtoH Withdrawal AWSS 6-10 Ondansetron HCl (Zofran) 4 mg IV Q8H PRN PRN Reason: Nausea Stop: 02/16/19 14:56 Last Admin: 01/18/19 06:17 Dose: 4 mg Documented by: Polyethylene Glycol (Miralax Powder Packet) 17 gm PO DAILY PRN PRN Reason: Constipation Stop: 02/16/19 09:55 Thiamine HCl (Vitamin B-1) 100 mg PO QAM [facility] Stop: 02/19/19 08:59 (1) Alcohol intoxication Complication of substance-induced condition: with unspecified complication Qualified Code(s): F10.929 - Alcohol use, unspecified with intoxication, unspecified
[2019-01-19] MEDS ORDERED: OXYCODONE HCL IR 5 MG TAB (IMMEDIATE RELEASE) PO STA (20:00)
[2019-01-19] MEDS ORDERED: KETOROLAC TROMETHAMINE 15 MG/ML VIAL IV ONE (21:08)
--- NOTE | 2019-01-19 21:11 | XRay Report ---
XR hip LT min 2V HISTORY: 53 years-old Male worsening pain acute on chronic left-sided hip pain COMPARISON: CT pelvis 01/01/2019 TECHNIQUE: 2 views of the left hip FINDINGS: Demineralized appearance of the bones. ORIF changes of the left proximal femur redemonstrated with un changed chronic fracture noted about the medial femoral neck. No evidence of hardware fracture or loo sening. Mild to moderate left hip osteoarthritis. No acute fracture or dislocation identified. IMPRESSION: 1. No acute fracture or dislocation identified. 2. ORIF changes of the proximal left femur with remote femoral neck fracture. No evidence of hardware fracture or loosening. The above report was generated using voice recognition software. It may contain grammatical, syntax o r spelling errors. Electronically signed by: Mark Hernandez M.D. 01/19/2019 9:09 PM
[2019-01-20] MEDS ORDERED: cloNIDine HCl 0.1 MG TAB PO ONE ×2 (00:26→21:19)
[2019-01-20] MEDS: ACETAMINOPHEN 500 MG TAB PO PRN ×4 (00:39→14:24)
[2019-01-20 06:00] LABS: Hematocrit (blood only) 32.2 % (42-52); Mean Corpuscular Hgb Conc 34.2 g/dL (32-36); Mean Corpuscular Volume 86.6 fL (80-100); Mean Platelet Volume 10.4 fL (7.4-10.4); Platelet Count 132 K/uL (130-400); RDW Coefficient of Variation 16.3 % (11.5-14.5); RDW Standard Deviation 51.7 fL (36.4-46.3); Red Blood Count 3.72 M/uL (4.7-6.1); White Blood Count 6.58 K/uL (4.8-10.8)
[2019-01-20] MEDS: THIAMINE HCL 100 MG TAB PO SCH (08:31)
[2019-01-20] MEDS: ENOXAPARIN INJ 40 MG/0.4 ML SYR SQ SCH (14:07)
--- NOTE | 2019-01-20 16:29 | Hospitalist Progress Note ---
Date of Service January 20, 2019 Assessment & Plan (1) Alcohol intoxication: resolved, gapabentin for withdrawal per protocol. Ativan PRN. Elevated BP requiring Ativan with resolution, so mild withdrawal is suspected to be present. (2) Alcohol abuse: Patient is declining any rehab programs at this time. He refuses to go to AA because he "does not like it". He does admit that he has a problem and understands that the same scenario may happen again where he takes a bus into town and gets found intoxicated. He does not know the correct solution at this time. Will set him up for [facility] followup at discharge as his medical insurance has apparently lapsed. (3) Generalized weakness: Resolved, he is deconditioned but no longer weak and he is ambulating at baseline. (4) Hip pain, left: chronic, controlled with APAP and NSAIDs. (5) DVT prophylaxis: Lovenox Full code Disposition-MedSurg. Likely to home in am. Sully Gregory DO [place] Hospitalist Subjective feeling well, no issues, doesn't want to go home as he explains he has no TV and no one to talk to. Also, he states it is Monday and places close early, so he has nothing to do. He would prefer to leave tomorrow instead. Review of Systems Review of Systems: All systems reviewed & are unremarkable except as noted in HPI & below chronic hip pain, controlled with Tylenol and NSAIDs Physical Exam Physical Exam: CONSTITUTIONAL: WNWD, vitals as above, generally well- appearing, [place] EYES: normal conjunctivae, no scleral icterus ENT: MMM NECK: trachea midline RESPIRATORY: clear to auscultation bilaterally, no crackles, rales or wheezes, normal respiratory effort CARDIOVASCULAR: regular rate and rhythm, S1 and 2 heard without murmurs, gallops or rubs, no JVD, no peripheral edema, no carotid bruits CHEST: inspection of chest was normal GASTROINTESTINAL: normal bowel sounds, soft, nontender, nondistended MUSCULOSKELETAL: moves all extremities equally, ambulates quickly around the room, likely at baseline with walker. SKIN: warm and dry NEUROLOGIC: some lateral deviation of the L eye, otherwise CN 2-12 grossly intact, normal speech PSYCHIATRIC: alert and answering questions appropriately Results & Data Vital Signs (Past 12 Hours) Vital Signs Temp Pulse Pulse Resp BP BP Pulse Ox 01/20/19 16:00 37 C 80 20 138/82 97 01/20/19 07:53 36.6 C 74 20 142/85 H 98 Laboratory Results Short CBC 01/20/19 Range/Units 05:47 WBC 6.58 (4.8-10.8) K/uL Hgb 11.0 L (14.0-18.0) g/dL Hct 32.2 L (42-52) % Plt Count 132 (130-400) K/uL Medications Administered Current Inpatient Medications Enoxaparin Sodium (Lovenox) 40 mg SQ Q24H [facility] Stop: 02/16/19 12:59 Last Admin: 01/20/19 14:07 Dose: Not Given Documented by: Gabapentin (Neurontin) 600 mg PO Q24H [facility] Stop: 01/20/19 22:01 Lorazepam (Ativan) 2 mg in 4 mls @ 4 mls/min IV UD PRN; Protocol PRN Reason: EtOH Withdrawl AWSS Score 8,9 Stop: 02/16/19 12:09 Last Admin: 01/18/19 05:11 Dose: 4 mls/min Documented by: Lorazepam (Ativan) 3 mg in 6 mls @ 4 mls/min IV ONCE PRN; Protocol PRN Reason: EtOH Withdrawl AWSS Score >=10 Stop: 02/16/19 12:09 Lorazepam (Ativan) 1 mg in 2 mls @ 2 mls/min IV UD PRN; Protocol PRN Reason: EtOH Withdrawl AWSS Score 6,7 Stop: 02/16/19 12:09 Last Admin: 01/18/19 06:38 Dose: 2 mls/min Documented by: Lorazepam (Ativan) 1 mg PO ONE PRN; Protocol PRN Reason: EtoH Withdrawal AWSS 6-10 Ondansetron HCl (Zofran) 4 mg IV Q8H PRN PRN Reason: Nausea Stop: 02/16/19 14:56 Last Admin: 01/18/19 06:17 Dose: 4 mg Documented by: Polyethylene Glycol (Miralax Powder Packet) 17 gm PO DAILY PRN PRN Reason: Constipation Stop: 02/16/19 09:55 Thiamine HCl (Vitamin B-1) 100 mg PO QAM [facility] Stop: 02/19/19 08:59 Last Admin: 01/20/19 08:31 Dose: 100 mg Documented by: (1) Alcohol intoxication Complication of substance-induced condition: with unspecified complication Qualified Code(s): F10.929 - Alcohol use, unspecified with intoxication, unspecified
[2019-01-20] MEDS: IBUPROFEN 800 MG TAB PO PRN (20:08)
[2019-01-20] MEDS ORDERED: GABAPENTIN 600 MG TAB PO SCH (22:00)
[2019-01-21] MEDS: ACETAMINOPHEN 500 MG TAB PO SCH ×3 (00:08→15:53)
[2019-01-21] MEDS: THIAMINE HCL 100 MG TAB PO SCH (07:55)
[2019-01-21] MEDS: IBUPROFEN 800 MG TAB PO PRN (07:55)
[2019-01-21] MEDS ORDERED: LORazepam 1 MG TAB PO STA (09:52)
[2019-01-21] MEDS: ENOXAPARIN INJ 40 MG/0.4 ML SYR SQ SCH (15:53)
--- NOTE | 2019-01-24 11:01 | Discharge Summary ---
Date of Service January 24, 2019 Admission HPI Per Admitting Provider 53-year-old alcoholic male who is frequently admitted to the hospital presented to the ER after being picked up [place]. He has a long history of chronic hip pain and uses a walker which he was found to be carrying with him. He denies pain at this time, and during the exam it appears his intoxication is resolving.He is not demonstrating any signs of withdrawal at this time alcohol level on arrival was 435. The patient admits to drinking 12 beers, but he is not sure. He does not remember how he got downtown. He states that he is in a new place that he hates and he wants a new living situation. We discussed that a [facility] is a place for people who cannot take care of themselves and he shrugged his shoulders. When I asked him what he would like us to do for him, he reported that he just needed to lay here for a while. Review of systems is otherwise negative. Admission Exam Per Admitting Provider CONSTITUTIONAL: WNWD, vitals as above, generally well-appearing EYES: PERRL, normal conjunctivae, no scleral icterus ENT: MMM NECK: trachea midline RESPIRATORY: clear to auscultation bilaterally, no crackles, rales or wheezes, normal respiratory effort CARDIOVASCULAR: regular rate and rhythm, S1 and 2 heard without murmurs, gallops or rubs, no JVD, no peripheral edema, no carotid bruits CHEST: inspection of chest was normal GASTROINTESTINAL: normal bowel sounds, soft, nontender, nondistended MUSCULOSKELETAL: moves all extremities equally but is generally weak SKIN: warm and dry NEUROLOGIC: Intoxicated, some lateral deviation of the L eye, otherwise CN 2-12 grossly intact, normal speech PSYCHIATRIC: alert and answering questions appropriately Principal Diagnosis alcohol intoxication alcohol abuse elevated BP 2/2 alcohol withdrawal Discharge Data Allergies Allergy/AdvReac Type Severity Reaction Status Date / Time Penicillins AdvReac Mild TIRED Verified 01/16/19 17:04 hydralazine AdvReac Vomiting Verified 01/16/19 17:04 Consultations 01/17/19 09:56 Consult Case Management - Discharge Planning Routine Ordered Studies XR hip LT min 2V HISTORY: 53 years-old Male worsening pain acute on chronic left-sided hip pain COMPARISON: CT pelvis 01/01/2019 TECHNIQUE: 2 views of the left hip FINDINGS: Demineralized appearance of the bones. ORIF changes of the left proximal femur redemonstrated with unchanged chronic fracture noted about the medial femoral neck. No evidence of hardware fracture or loosening. Mild to moderate left hip osteoarthritis. No acute fracture or dislocation identified. IMPRESSION: 1. No acute fracture or dislocation identified. 2. ORIF changes of the proximal left femur with remote femoral neck fracture. No evidence of hardware fracture or loosening. Hospital Course (1) Alcohol intoxication: (2) Alcohol abuse: (3) Generalized weakness: (4) Alcohol withdrawal: (5) Hip pain, left: Mr. Chang is a 53-year-old alcoholic man who was admitted to the medicine service after refusing to leave the ER. He was picked up wandering downtown while intoxicated carrying his walker with him. He was placed on a gabapentin withdrawal protocol with as needed Ativan, requiring as needed Ativan throughout his admission. He was noted to have generalized weakness likely secondary to alcoholism and disequilibrium related to this with frequent hospitalizations in the setting of deconditioning and chronic hip pain. He is recently been placed into an apartment and is getting Meals on Wheels with a weekly allowance from a taker off hemp fiber. However, he frequently goes into town as he states he does not have a TV or friends with which he can socialize. PT and OT evaluated the patient and a recommendation for senior care facility was made. However, the patient improved and was ablating at baseline prior to discharge. Additionally his insurance has lapsed, and he does not have a primary care provider. He has declined signing up with the primary care provider in the past stating he does not need one. He is agreeable to this at this time. He was set up to see a provider at [facility] in medicine for hospital follow-up and to establish care until he is able to reestablish his health insurance. We discussed Alcoholics Anonymous and other rehabilitation programs which he declines at this time but does not give a reason. Throughout his hospitalization he remained hemodynamically stable aside from some elevated blood pressure which was improved with Ativan administration and was likely secondary to alcohol withdrawal. He remained afebrile at time of discharge a [id number] examination was performed. He was in no acute distress and was mentating and ambulating at baseline and tolerating p.o. He was sent home in stable condition with close primary care follow-up recommended. Physical exam at that time was unremarkable. Total Time Total Time Spent Total Time Spent (In Minutes): 60 Total Time Includes: Examination of the Patient, Discharge Planning, Medication Reconciliation, Communication With Other Providers and Other (arranged followup) Discharge Plan Discharge Items Patient Disposition: Home - Self-Care Reason For Visit: INTOXICATION/PLACEMENT Discharge Diagnosis: alcohol intoxication alcohol abuse Condition: Good Discharge Goals: Improve disease control Activity: Resume your previous activity Non-emergency contact: Primary Care Provider Call non-emergency contact if: you have any medication questions, your symptoms worsen, your pain is not controlled, your pain is worsening, your pain is unusual for you, your pain is concerning for you and you have a fever Follow-up/Referrals: PCP,DAMION [Primary Care Provider] - Diet: Regular Addtl Provider Instructions: It is strongly recommended that you stop drinking alcohol. As discussed with you, please work with your social work providers for help reapplication for health insurance as this has lapsed. You have a followup appointment with a local medical clinic, [facility] on February 05 @ 12 NOON. Please ensure you have transportation to this appointment, which has been made to ensure you are still doing well after your hospital discharge. It was a pleasure taking care of you! Please call if you have any questions or problems. You can reach a [facility] hospitalist on duty at [facility] 24 hours a day by calling [phone]. Take care of yourself. Sully Gregory DO [facility] Hospitalist Prescriptions: No Action No Known Home Medications RF: 0 Stand-Alone Forms: [facility] Discharge Orders: Discharge Order (Routine); Ordered 01/21/19 Ordered By: Sully Gregory Admission Data Admit Date/Time: 01/18/19 14:51 Attending Provider: Sully Gregory Admit Provider: Sully Gregory Primary Care Provider: DAMION SEGURA Service: Medical Other Interventions: Discharge Summary Assessment (RN) Last Done: 01/21/19 14:59 DC Date/Time DO NOT enter until pt leaves facility: 01/21/19 16:46
== END 2019-01-21 16:46 | disposition home or self-care (01) | DRG 897 ==
LOC: 4E 16:55 → ED 16:55 → 4E 01-17 09:27

== ENCOUNTER 2019-03-06 11:42 | Inpatient (IN) ==
[2019-03-06 13:17] LABS: Albumin Level 3.5 gm/dl (3.4-5.0); BUN Creatinine Ratio 9.2 (10-20); Calcium 8.2 mg/dl (8.5-10.1); Creatinine Clr Calc Pharmacy 142.6 ml/min; Est GFR (African American) 140.1; Est GFR (Non-African American) 120.9; Potassium 3.6 mmol/L (3.5-5.1)
[2019-03-06 13:19] LABS: Albumin Globulin Ratio 0.9 (0.9-2); Bilirubin,Total 0.2 mg/dl (0.2-1); Globulin 3.9 gm/dl (2.5-4.0); Total Protein 7.4 gm/dl (6.4-8.2)
[2019-03-06] MEDS ORDERED: FOLIC ACID 400 MCG TAB PO STA (14:25)
[2019-03-06] MEDS ORDERED: THIAMINE HCL 100 MG TAB PO SCH (14:30)
--- NOTE | 2019-03-06 17:07 | XRay Report ---
XR hip BI w PEL1V CLINICAL HISTORY: refuses to ambulate pain COMPARISON: None. DISCUSSION: Bilateral hip pain procedures. No acute bony abnormality. No evidence for acetabular prot rusion. There is no evidence for soft tissue swelling. IMPRESSION: Degenerative and postoperative change. No acute process. The above report was generated using voice recognition software. It may contain grammatical, syntax or spelling errors. Electronically signed by: Keven Vann M.D. 03/06/2019 5:06 PM
[2019-03-06] MEDS ORDERED: IBUPROFEN 200 MG TAB PO STA (17:55)
[2019-03-06] MEDS ORDERED: chlordiazePOXIDE HCl 25 MG CAP PO ONE (19:14)
[2019-03-06] MEDS ORDERED: LIDOCAINE 5% 1 PATCH TD ONE (19:27)
[2019-03-06] MEDS: LIDOCAINE 5% 1 PATCH TD SCH (19:32)
[2019-03-06] MEDS ORDERED: CALCIUM CARBONATE 500 MG CHEWABLE TAB PO STA (20:44)
--- NOTE | 2019-03-06 20:44 | Emergency Department Note ---
Entered by Gardenia Berry acting as a scribe for Shree Hernandez MD History of Present Illness General Chief complaint: Alcohol Intoxication Stated complaint: Overdose Time Seen by Provider: 03/06/19 12:03 Source: patient and other (nursing staff) History of Present Illness Onset (ago): day(s) (this morning) Location: head Pain Consistency: + other (episode) Maximum Pain Intensity: 9 Quality: + other (alcohol intoxication) Associated symptoms: + denies other symptoms (abdominal pain, having any pain anywhere) and + other (hip pain); no headaches The patient is a 53 male w/ PMHx alcohol abuse, esophageal tear, aortic root dilation, dementia, subgaleal hemorrhage, hip fracture, and HTN who presents to the ED w/ CC of an episode of alcohol intoxication occurring this morning. Per nursing staff, the patient was found on the ground in [facility] by [place] [employer]. The patient states that he has been drinking and last drank earlier today. He notes that he has been drinking beer. The patient complains of hip pain. The patient denies headache, abdominal pain, having any pain anywhere, and taking any medications. Home Medications Home Medications Medication Instructions Recorded Confirmed Type No Known Home Medications 01/17/19 03/06/19 History Allergies Allergy/AdvReac Type Severity Reaction Status Date / Time Penicillins AdvReac Mild TIRED Verified 03/06/19 12:56 hydralazine AdvReac Vomiting Verified 03/06/19 12:56 Past Med/Surg History Medical History Esophageal stenosis DVT prophylaxis Esophageal tear Aortic root dilation Dementia Subgaleal hemorrhage Chronic hyponatremia History of esophageal stricture History of esophageal dilatation Hx of fracture of hip Hypertension (Chronic) Alcoholism (Chronic) Ambulatory dysfunction (Chronic) Dysphagia (Chronic) "h/o esophageal stricture s/p dilation in past" Frequent falls (Chronic) Alcohol abuse Tobacco abuse Surgical History History of esophagogastroduodenoscopy (EGD) History of hip surgery s/p fall and fx Family History Other Cancer Hypertension Social History Preferred Language: Tajik Communication Ability: Effective Visual Impairment: No Limitations Hearing Ability: Hard of Hearing 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 and A total of 10 systems reviewed and were otherwise negative Physical Exam Vital Signs Vital Signs - 24 hr 03/06/19 11:57 03/06/19 12:16 03/06/19 14:00 Temperature 36.6 C Temperature Source Oral Sepsis Recent Fever Within 48 Hours No Sepsis Action Taken by Nursing No Action Required Pulse Rate 78 Pulse Rate [Left] 66 Pulse Rate from SpO2 Sensor Pulse Rhythm Regular Pulse Rhythm [Left] Regular Pulse Strength Normal Pulse Strength [Left] Normal Respiratory Rate 18 18 Respiratory Effort / Characteristics Non-Labored Spontaneous Non-Labored Spontaneous Respiratory Depth Normal Normal Respiratory Pattern Regular Blood Pressure 157/94 H Blood Pressure [Left Arm] 162/98 H Blood Pressure Mean 115 Blood Pressure Mean [Left Arm] 119 Blood Pressure Position Lying Blood Pressure Position [Left Arm] Lying Pulse Oximetry 97 97 98 Oxygen Delivery Method Room Air Room Air Room Air 03/06/19 16:00 03/06/19 16:13 03/06/19 16:30 Temperature Temperature Source Sepsis Recent Fever Within 48 Hours Sepsis Action Taken by Nursing Pulse Rate 67 68 Pulse Rate [Left] 73 Pulse Rate from SpO2 Sensor Pulse Rhythm Pulse Rhythm [Left] Pulse Strength Pulse Strength [Left] Respiratory Rate 12 16 12 Respiratory Effort / Characteristics Respiratory Depth Respiratory Pattern Blood Pressure 150/86 H 138/80 Blood Pressure [Left Arm] 150/86 H Blood Pressure Mean 107 99 Blood Pressure Mean [Left Arm] 107 Blood Pressure Position Blood Pressure Position [Left Arm] Pulse Oximetry 98 97 91 Oxygen Delivery Method Room Air Room Air Room Air 03/06/19 16:31 03/06/19 19:09 03/06/19 19:15 Temperature Temperature Source Sepsis Recent Fever Within 48 Hours Sepsis Action Taken by Nursing Pulse Rate 79 97 H Pulse Rate [Left] 88 Pulse Rate from SpO2 Sensor 82 Pulse Rhythm Pulse Rhythm [Left] Regular Pulse Strength Pulse Strength [Left] Normal Respiratory Rate 13 17 16 Respiratory Effort / Characteristics Non-Labored Respiratory Depth Normal Respiratory Pattern Regular Blood Pressure 146/96 H Blood Pressure [Left Arm] 146/96 H Blood Pressure Mean 112 Blood Pressure Mean [Left Arm] 112 Blood Pressure Position Blood Pressure Position [Left Arm] Lying Pulse Oximetry 97 96 99 Oxygen Delivery Method Room Air Room Air GENERAL: Well appearing, well nourished, NAD, non-toxic. EYE EXAM: Normal conjunctiva. PERRL, no anisocoria and EOM's grossly intact w/o pain. Right extrophia. OROPHARYNX: Moist mucous membranes. Poor dentition. NECK: Supple, no nuchal rigidity, no adenopathy, non-tender. No signs of meningismus. LUNGS: Clear to auscultation. Normal chest wall mechanics. HEART: NSR, no MRG. ABDOMEN: Abdomen soft, non-tender, normo-active bowel sounds, no masses, no rebound or guarding. BACK: No CVA TTP. SKIN: No rashes and no bruising. UPPER EXTREMITIES: Upper extremities are grossly normal. LOWER EXTREMITIES: No pitting edema. No calf pain. NEURO EXAM: A&O x3, cranial nerves II-XII grossly intact, normal speech, moves all 4 extremities on command w/o issue. Course 1231: Past medical records reviewed. The patient was evaluated in room A2. A complete history and physical exam was performed. 1418: I reevaluated the patient and we are going to do a PO and ambulatory challenge. 1600: I reevaluated the patient and he is refusing to get up and walk. 1719: I reevaluated the patient and he is going to speak with a correctional case records supervisor. 1925: I reevaluated the patient and he is still refusing to walk. I am going to try a Lidoderm patch. 2016: I reevaluated the patient and he still will not walk. I discussed the test results and treatment plan with him. He verbally agrees and understands. 2024: I discussed the patient's case with Dr. Param Broussard. He will evaluate the patient for further management. Consultations Consultation #1: I discussed the patient's case with Dr. Param King spitalist. He will evaluate the patient for further management. Time: 20:25 Administered Medications Lidocaine (Lidoderm 5%) [facility] Stop: 04/05/19 19:29 Last Admin: 03/06/19 19:32 Dose: Not Given Documented by: [id number] Thiamine HCl (Vitamin B-1) 100 mg PO QAM YOMAIRA Stop: 04/05/19 14:29 Last Admin: 03/06/19 15:03 Dose: 100 mg Documented by: [id number] Discontinued Medications Chlordiazepoxide HCl (Librium) 100 mg PO NOW ONE Stop: 03/06/19 19:15 Last Admin: 03/06/19 19:32 Dose: 100 mg Documented by: [id number] Folic Acid (Folvite) 1,000 mcg PO NOW STA Stop: 03/06/19 14:26 Last Admin: 03/06/19 15:02 Dose: 1,000 mcg Documented by: [id number] Ibuprofen (Advil) 400 mg PO NOW STA Stop: 03/06/19 17:56 Last Admin: 03/06/19 18:45 Dose: 400 mg Documented by: [id number] Lidocaine (Lidoderm 5%) Confirm Administered Dose 1 patch TD .STK-MED ONE Stop: 03/06/19 19:28 Last Admin: 03/06/19 19:32 Dose: 1 patch Documented by: [id number] Medical Decision Making Differential Diagnosis Differential diagnosis: Etiologies such as alcohol intoxication, toxicological, infection, hypoglycemia, electrolyte abnormalities, cardiac sources, intracerebral event, neurologic, as well as others were entertained. Medical Records Attestation: I reviewed the patient's medical records. Home Medications Current Medication List: was personally reviewed by me Laboratory Data Attestation: I reviewed the patient's lab results. Result diagrams: 03/06/19 12:23 Lab Results 03/06/19 03/06/19 Range/Units 12:23 12:23 Sodium 134 L (136-145) mmol/L Potassium 3.6 (3.5-5.1) mmol/L Chloride 100 (98-107) mmol/L Carbon Dioxide 25 (21-32) mmol/L Anion Gap 9.0 (3-11) BUN 5 L (7-18) mg/dl Creatinine 0.52 L (0.6-1.4) mg/dl Est Cr Clr Drug Dosing 142.6 ml/min Est GFR ( Amer) 140.1 Est GFR (Non-Af Amer) 120.9 BUN/Creatinine Ratio 9.2 L (10-20) Glucose 94 (70-99) mg/dl Calcium 8.2 L (8.5-10.1) mg/dl Total Bilirubin 0.2 (0.2-1) mg/dl AST 51 H (15-37) U/L ALT 23 (12-78) U/L Alkaline Phosphatase 111 (45-117) U/L Total Protein 7.4 (6.4-8.2) gm/dl Albumin 3.5 (3.4-5.0) gm/dl Globulin 3.9 (2.5-4.0) gm/dl Albumin/Globulin Ratio 0.9 (0.9-2) Ethyl Alcohol mg/dL 412.1 H (0-3) mg/dl Imaging Data Radiologist's Impression: Radiology results as stated below per my review and t he radiologist's interpretation: XR hip BI w PEL1V CLINICAL HISTORY: refuses to ambulate pain COMPARISON: None. DISCUSSION: Bilateral hip pain procedures. No acute bony abnormality. No evidence for acetabular protrusion. There is no evidence for soft tissue swelling. IMPRESSION: Degenerative and postoperative change. No acute process. The above report was generated using voice recognition software. It may contain grammatical, syntax or spelling errors. Electronically signed by: Keven Vann M.D. 03/06/2019 5:06 PM Blood Pressure Blood Pressure Findings: Elevated blood pressure Blood Pressure Disposition: further management by hospitalist VENICE Narrative The patient is a 53 male w/ PMHx alcohol abuse, esophageal tear, aortic root dilation, dementia, subgaleal hemorrhage, hip fracture, and HTN who presents to the ED w/ CC of an episode of alcohol intoxication occurring this morning. Patient was seen and evaluated the bedside. The patient did present after being found down after falling as the patient was likely intoxicated. The patient did have some blood work completed which did show a trace elevation in AST and elevated blood alcohol level. Patient is a chronic drinker and does admit to drinking today. The patient does not have any headache or neck pain. Patient does not have any obvious signs of trauma over the head neck. The patient does have some poor dentition. The patient was given thiamine as well as food. The patient refused to walk some plain films were ordered. This is unremarkable. He was ordered a Lidoderm patch as well as some Librium given his prolonged ER stay but the patient still refused to get up and ambulate. Given the concern for safety at home and the patient's unwillingness to ambulate with another is effort dependent versus his likely chronic deconditioning and alcohol dependence all may be factors. I did speak the on-call hospitalist. I did order an IV additional blood work and patient was admitted to the medicine service. Impression & Plan Alcohol abuse, Bilateral hip pain Discharge Plan Visit Data Chief Complaint: Alcohol Intoxication Stated Complaint: Overdose ED Provider: Shree Hernandez Discharge Problem: Alcohol abuse, Bilateral hip pain Patient Disposition: Being Evaluated by Hospitalist Condition: Good Discharge Instructions Olu/Other Patient Handouts: Addiction Alcohol Signs, Addiction Alcohol Activity Restrictions/Additional Instructions: Please return to the emergency department if you have worsening or recurrent symptoms not amenable to at-home treatment. Please call for a follow-up appointment with her primary care physician. Please take your medications as prescribed. If you have other concerns and/or complaints please feel free to also call your primary care physician's office or return the ED for further evaluation, management, and treatment. Take your medications as prescribed. You have been examined and treated today on an emergency basis only. This is not a substitute for, or an effort to provide, complete comprehensive medical care. It is impossible to recognize and treat all injuries or illnesses in a single emergency department visit. It is therefore important that you follow up closely with [facility], your PCP, and/or your specialist(s). Call as soon as possible for an appointment. Thank you for your time and consideration. I look forward to speaking with you again soon. Please don't hesitate to call us if you have any questions. Prescriptions Prescriptions: No Action No Known Home Medications RF: 0 Referrals Referrals: PCP,NO [Primary Care Provider] - The josieibe's documentation has been prepared under my direction and personally reviewed by me in its entirety. I confirm that the note above accurately reflects all work, treatment, procedures, and medical decision making performed by me.
[2019-03-06] MEDS ORDERED: D5W AND 1/2NSS 1,000 ML IV SCH (20:45)
[2019-03-06] MEDS ORDERED: THIAMINE HCL 200 MG in SODIUM CHLORIDE 0.9% 50 ML IV STA (20:45)
[2019-03-06 22:05] LABS: Basophils # (auto) 0.06 K/uL (0-0.2); Basophils % (auto) 1.1 %; Eosinophils # (auto) 0.12 K/uL (0-0.5); Eosinophils % (auto) 2.1 %; Hemoglobin 13.2 g/dL (14.0-18.0); Immature Granulocytes # (auto) 0.01 K/uL (0.00-0.02); Immature Granulocytes % (auto) 0.2 %; Lymphocytes # (auto) 1.24 K/uL (1.2-3.4); Lymphocytes % (auto) 21.9 %; Mean Corpuscular Hgb Conc 34.7 g/dL (32-36); Mean Corpuscular Volume 84.4 fL (80-100); Mean Platelet Volume 9.1 fL (7.4-10.4); Monocytes # (auto) 1.11 K/uL (0.11-0.59); Monocytes % (auto) 19.6 %; Neutrophils # (auto) 3.12 K/uL (1.4-6.5); Neutrophils % (auto) 55.1 %; Platelet Count 152 K/uL (130-400); RDW Coefficient of Variation 17.8 % (11.5-14.5); White Blood Count 5.66 K/uL (4.8-10.8)
[2019-03-06] MEDS ORDERED: LORazepam 1.5 MG/3 ML VIAL IV PRN (22:06)
[2019-03-06] MEDS ORDERED: NITROGLYCERIN SL 0.4 MG/TAB TAB SL PRN (22:06)
[2019-03-06] MEDS ORDERED: ONDANSETRON INJ 2 MG/ML 2 ML VIAL IV PRN (22:06)
[2019-03-06] MEDS ORDERED: GABAPENTIN 1200MG ALCOHOL WITHDRAWAL LOAD PO STA (22:06)
[2019-03-06] MEDS ORDERED: MULTI-VITAMIN INFUSION 10 ML, THIAMINE HCL 100 MG, FOLIC ACID 1 MG in SODIUM CHLORIDE 0... IV ONE (22:06)
[2019-03-06 22:30] LABS: Albumin Level 3.6 gm/dl (3.4-5.0); BUN Creatinine Ratio 8.9 (10-20); Calcium 8.6 mg/dl (8.5-10.1); Creatinine Clr Calc Pharmacy 115.6 ml/min; Est GFR (African American) 130.3; Est GFR (Non-African American) 112.5
[2019-03-06] MEDS ORDERED: GABAPENTIN 600 MG TAB PO SCH (22:30)
[2019-03-06 22:32] LABS: Potassium 3.5 mmol/L (3.5-5.1)
[2019-03-06] MEDS: ACETAMINOPHEN 325 MG TAB PO PRN (22:32)
[2019-03-06 22:35] LABS: Albumin Globulin Ratio 0.8 (0.9-2); Bilirubin,Total 0.3 mg/dl (0.2-1); Globulin 4.5 gm/dl (2.5-4.0); Total Protein 8.1 gm/dl (6.4-8.2)
--- NOTE | 2019-03-06 23:57 | History and Physical Report ---
DATE OF ADMISSION: 03/06/2019 CHIEF COMPLAINT: Hip pain, ambulatory dysfunction. HISTORY OF PRESENT ILLNESS: This is a 53-year-old male with past medical history significant for frequent admission to the hospital for alcoholism, long history of chronic hip pain, history of hyponatremia, esophageal strictures, status post dilatation, history of hypertension, frequent falls, tobacco abuse, history of aortic root dilatation, currently living in an apartment , was brought in for alcohol intoxication. The patient was seemed to be found on the ground in [facility] by [place] [employer]. The patient says that he only drank 2 beers today, but his alcohol level was greater than 400 in the ER. Complains of hip pain. He says he could not walk, he could not go back. He wants to go to rehab. Denies any other complaints. Denies any headache. He says his vision is not great and he uses glasses. Denies any cough. Says he is swallowing okay. Says he is eating okay. Denies any chest pain, no nausea, no abdominal pain. Normal bowel and bladder movements. Denies any bleeding episodes. Currently resting comfortably and hemodynamically stable. ALLERGIES: No known drug allergies. PAST MEDICAL HISTORY: As mentioned above. PAST SURGICAL HISTORY: Status post esophageal dilatation, status post hip surgery. MEDICATIONS: Currently not taking any medications. FAMILY HISTORY: Significant for cancer and hypertension. SOCIAL HISTORY: Former tobacco abuse and frequent admission for alcohol, seemed to be taking as per records 7-10 beers a day. No substance abuse. REVIEW OF SYMPTOMS: As per HPI. Rest of symptoms negative. PHYSICAL EXAMINATION: GENERAL: The patient is of moderate built, not in acute distress. VITAL SIGNS: Temperature 36.6, pulse 74, respiratory rate 16, blood pressure 161/90, oxygen 95% on room air. HEENT: No pallor, no icterus. Pupils equal, round, reactive to light. NECK: No JVD, no neck masses, no carotid bruits. CARDIOVASCULAR: S1, S2 heard, regular rate and rhythm, no murmur, no gallop. RESPIRATORY SYSTEM: Normal AP diameter. No accessory muscle use. No wheezing, no crackles. ABDOMEN: Soft, bowel sounds present, nontender. No distention. CENTRAL NERVOUS SYSTEM: Alert and awake, hard of hearing. Obeys simple commands. Moves extremities. EXTREMITIES: No edema, no erythema. LABORATORY DATA: Sodium 134, potassium 3.6, chloride 100, bicarbonate 25, BUN 5, creatinine 0.52, serum glucose 94, calcium 8.2, total bilirubin 0.2, AST 51, ALT 23, alkaline phosphatase is 111. Alcohol level 412. Bilateral hip x-ray, degenerative and postoperative changes, no acute process. ASSESSMENT AND PLAN: This 53-year-old male presents with alcohol intoxication and also complaining of hip pain. 1. Alcohol intoxication and multiple admissions for alcohol intoxications. We will give him banana bag, thiamine, multivitamin p.o. daily. Alcohol withdrawal protocol with gabapentin and IV Ativan p.r.n. Closely monitor in the medical/surgical telemetry. Social service consult to help for any placement. Needs counseling. 2. Chronic hip pain, ambulatory dysfunction. Will get physical therapy and occupational therapy, consider rehabilitation placement. 3. History of hypertension, not on any medication. We will place him on clonidine p.r.n. for now. . 4. History of hyponatremia. Used to be on salt tablet before but not on anything currently, sodium is 134. We will follow the laboratories. 5. History of aortic root dilatation, 6.history of esophageal stenosis status post dilatation in the past. We will place him on soft diet for now. 7. Deep venous thrombosis prophylaxis, sequential compression devices for now. 8. Disposition: Closely monitor in the medical/surgical telemetry. Level 1 full code. Physical therapy and occupational therapy prior to discharge. Social Service to help with discharge planning. [facility]
[2019-03-07] MEDS: D5W AND NSS 1,000 ML IV SCH ×2 (00:34→14:12)
[2019-03-07] MEDS: GABAPENTIN 600 MG TAB PO SCH ×3 (03:44→17:53)
[2019-03-07] MEDS: cloNIDine HCl 0.1 MG TAB PO PRN ×2 (03:44→12:55)
[2019-03-07 06:44] LABS: Basophils # (auto) 0.04 K/uL (0-0.2); Eosinophils # (auto) 0.15 K/uL (0-0.5); Eosinophils % (auto) 3.8 %; Hematocrit (blood only) 34.2 % (42-52); Hemoglobin 11.5 g/dL (14.0-18.0); Immature Granulocytes # (auto) 0.01 K/uL (0.00-0.02); Immature Granulocytes % (auto) 0.3 %; Lymphocytes % (auto) 22.7 %; Mean Corpuscular Hgb Conc 33.6 g/dL (32-36); Mean Corpuscular Volume 85.5 fL (80-100); Mean Platelet Volume 9.2 fL (7.4-10.4); Monocytes # (auto) 0.87 K/uL (0.11-0.59); Monocytes % (auto) 21.9 %; Neutrophils % (auto) 50.3 %; Platelet Count 114 K/uL (130-400); RDW Coefficient of Variation 17.6 % (11.5-14.5); RDW Standard Deviation 55.3 fL (36.4-46.3); White Blood Count 3.97 K/uL (4.8-10.8)
[2019-03-07 07:12] LABS: Platelet Estimate Normal (Normal)
[2019-03-07 07:17] LABS: Calcium 8.2 mg/dl (8.5-10.1); Creatinine Clr Calc Pharmacy 155.8 ml/min; Est GFR (African American) 147.4; Est GFR (Non-African American) 127.1; Magnesium 1.8 mg/dl (1.8-2.4); Potassium 3.4 mmol/L (3.5-5.1)
[2019-03-07] MEDS ORDERED: POTASSIUM CHLORIDE 20 MEQ TABCR PO STA (08:07)
[2019-03-07 08:34] LABS: Vitamin B12 478 pg/ml (211-911)
[2019-03-07 08:35] LABS: Folate (Folic Acid) > 24.00 ng/ml (>5.38)
[2019-03-07] MEDS: ACETAMINOPHEN 325 MG TAB PO PRN ×2 (08:55→16:53)
[2019-03-07] MEDS: LIDOCAINE 5% 1 PATCH TD SCH (08:57)
[2019-03-07] MEDS: THIAMINE HCL 100 MG TAB PO SCH (08:58)
[2019-03-07] MEDS: CEROVITE ADV FORMULA TAB PO SCH (08:58)
[2019-03-07] MEDS ORDERED: cloNIDine HCl 0.1 MG TAB PO STA (15:22)
--- NOTE | 2019-03-07 18:00 | Hospitalist Progress Note ---
Date of Service March 07, 2019 Assessment & Plan (1) Alcohol intoxication: Has long history of alcoholism with recurrent admission with withdrawal/delirium tremens/intoxication Has been feeling generally weak and complains to have more pain in the left hip Denies any palpitation Tremors of the hands are limited Has been on alcohol withdrawal protocol Present on Admission?: Yes (2) Alcohol abuse: History of alcoholism Failed outpatient rehab Likely to go for inpatient rehab (3) Acute pain of left hip: Has chronic pain in the left hip Complains of more pain Avoiding narcotics (4) Esophageal stenosis: has had procedures for further Has been tolerating diet DVT prophylaxis We will start subcu heparin CODE STATUS Full Subjective 03/07 Patient was seen and examined the medical telemetry unit Has been complaining of left hip pain which has been ongoing Still has tremor but no palpitation and no nausea and vomiting Review of Systems Review of Systems: All systems reviewed and are unremarkable except as noted below Constitutional: + fatigue and + weakness Gastrointestinal: + bloating; no nausea and no vomiting Musculoskeletal: + joint pain (Left hip joint) Neurologic: + tremor(s) (Of being out of the outstretched hands) Physical Exam Physical Exam: Lying in bed comfortably Constitutional: well nourished; no acute distress and not ill appearing Eyes: PERRL, conjunctivae normal, anicteric sclerae ENMT: external ear and nose normal, oropharynx normal Neck: trachea midline, no thyromegaly Respiratory: normal respiratory effort; no respiratory distress Cardiovascular: Rate/Rhythm: regular rate and + bradycardic Gastrointestinal (Abdomen): Inspection/Auscultation: abdomen normal to inspection; abdomen not distended Percussion/Palpation: + abdomen tender (Minimally in the epigastrium) and abdomen soft Lymphatic: no cervical or axillary lymphadenopathy Results & Data Vital Signs (Past 12 Hours) Vital Signs Temp Pulse Resp BP BP Pulse Ox 03/07/19 15:48 36.9 C 84 16 152/94 H 97 03/07/19 11:26 36.5 C 77 18 187/102 H 195/103 H 97 03/07/19 07:26 37.2 C 82 18 150/87 H 95 Laboratory Results Short CBC 03/06/19 03/07/19 Range/Units 21:50 06:17 WBC 5.66 3.97 L (4.8-10.8) K/uL Hgb 13.2 L 11.5 L (14.0-18.0) g/dL Hct 38.0 L 34.2 L (42-52) % Plt Count 152 114 L (130-400) K/uL BMP 03/06/19 03/07/19 21:50 06:17 Sodium 138 140 Potassium 3.5 3.4 L Chloride 99 104 Carbon Dioxide 30 30 BUN 6 L 6 L Creatinine 0.62 0.46 L Glucose 96 97 Calcium 8.6 8.2 L Liver Function 03/06/19 Range/Units 21:50 Total Bilirubin 0.3 (0.2-1) mg/dl AST 55 H (15-37) U/L ALT 27 (12-78) U/L Alkaline Phosphatase 127 H (45-117) U/L Albumin 3.6 (3.4-5.0) gm/dl Medications Administered Current Inpatient Medications Acetaminophen (Tylenol) 650 mg PO Q4H PRN PRN Reason: Pain or Fever Stop: 04/05/19 22:05 Last Admin: 03/07/19 16:53 Dose: 650 mg Documented by: Clonidine HCl (Catapres) 0.1 mg PO Q4H PRN PRN Reason: Hypertension Stop: 04/05/19 23:07 Last Admin: 03/07/19 12:55 Dose: 0.1 mg Documented by: Clonidine HCl (Catapres) 0.2 mg PO BID [facility] Stop: 04/06/19 20:59 Gabapentin (Neurontin) 600 mg PO Q12H [facility] Stop: 03/09/19 10:31 Gabapentin (Neurontin) 600 mg PO Q8H [facility] Stop: 03/08/19 10:31 Last Admin: 03/07/19 17:53 Dose: 600 mg Documented by: Gabapentin (Neurontin) 600 mg PO Q24H [facility] Stop: 03/10/19 10:31 Lorazepam (Ativan) 1.5 mg in 3 mls @ 3 mls/min IV Q2H PRN PRN Reason: Anxiety/Agitation Stop: 04/05/19 22:05 Lidocaine (Lidoderm 5%) 1 patch TD QAM [facility] Stop: 04/05/19 19:29 Last Admin: 03/07/19 08:57 Dose: 1 patch Documented by: Miscellaneous (Remove Lidoderm Patch) 1 ea N/A DAILY@2100 [facility] Stop: 04/05/19 20:59 Last Admin: 03/06/19 22:29 Dose: 1 ea Documented by: Multivitamins/Minerals (Multivitamin W/ Minerals Tab) 1 tab PO [facility] Stop: 04/06/19 08:59 Last Admin: 03/07/19 08:58 Dose: 1 tab Documented by: Nitroglycerin (Nitrostat) 0.4 mg SL UD PRN PRN Reason: Chest Pain Stop: 04/05/19 22:05 Ondansetron HCl (Zofran) 4 mg IV Q6H PRN PRN Reason: Nausea Stop: 04/05/19 22:05 Thiamine HCl (Vitamin B-1) [facility] Stop: 04/06/19 08:59 Last Admin: 03/07/19 08:58 Dose: 100 mg Documented by: (1) Alcohol intoxication Complication of substance-induced condition: with unspecified complication Qualified Code(s): F10.929 - Alcohol use, unspecified with intoxication, uns pecified
[2019-03-07 20:09] LABS: Prothrombin Time 10.7 Seconds (9.0-12.0)
[2019-03-07] MEDS: cloNIDine HCl 0.1 MG TAB PO SCH (21:04)
[2019-03-07] MEDS: HEPARIN SOD 5,000 UNIT/0.5 ML VIAL SQ SCH (21:08)
[2019-03-08] MEDS: GABAPENTIN 600 MG TAB PO SCH ×3 (02:28→22:41)
[2019-03-08 06:26] LABS: Basophils # (auto) 0.04 K/uL (0-0.2); Basophils % (auto) 0.5 %; Eosinophils # (auto) 0.35 K/uL (0-0.5); Eosinophils % (auto) 4.2 %; Hematocrit (blood only) 32.9 % (42-52); Hemoglobin 11.2 g/dL (14.0-18.0); Immature Granulocytes # (auto) 0.03 K/uL (0.00-0.02); Immature Granulocytes % (auto) 0.4 %; Lymphocytes # (auto) 1.32 K/uL (1.2-3.4); Lymphocytes % (auto) 15.9 %; Mean Corpuscular Volume 84.4 fL (80-100); Monocytes # (auto) 1.33 K/uL (0.11-0.59); Neutrophils # (auto) 5.22 K/uL (1.4-6.5); Platelet Count 113 K/uL (130-400); RDW Coefficient of Variation 17.3 % (11.5-14.5); RDW Standard Deviation 53.5 fL (36.4-46.3); White Blood Count 8.29 K/uL (4.8-10.8)
[2019-03-08 07:29] LABS: BUN Creatinine Ratio 16.7 (10-20); Calcium 8.5 mg/dl (8.5-10.1); Creatinine Clr Calc Pharmacy 155.8 ml/min; Est GFR (African American) 147.4; Est GFR (Non-African American) 127.1; Magnesium 1.8 mg/dl (1.8-2.4); Phosphorus 3.5 mg/dl (2.5-4.9); Potassium 3.7 mmol/L (3.5-5.1)
[2019-03-08] MEDS: cloNIDine HCl 0.1 MG TAB PO SCH ×2 (08:14→20:08)
[2019-03-08] MEDS: LIDOCAINE 5% 1 PATCH TD SCH (08:14)
[2019-03-08] MEDS: CEROVITE ADV FORMULA TAB PO SCH (08:14)
[2019-03-08] MEDS: THIAMINE HCL 100 MG TAB PO SCH (08:15)
[2019-03-08] MEDS: HEPARIN SOD 5,000 UNIT/0.5 ML VIAL SQ SCH ×2 (08:15→20:10)
[2019-03-08] MEDS: ACETAMINOPHEN 325 MG TAB PO PRN ×3 (10:10→20:39)
--- NOTE | 2019-03-08 14:49 | Hospitalist Progress Note ---
Date of Service March 08, 2019 Assessment & Plan (1) Alcohol intoxication: Has long history of alcoholism with recurrent admission with withdrawal/delirium tremens/intoxication Has been feeling generally weak and complains to have more pain in the left hip Denies any palpitation Tremors of the hands are limited Has been on alcohol withdrawal protocol Clinically much better today but remains extremely weak and lethargic Hemodynamically stable We will ask for PT and OT evaluation (2) Alcohol abuse: History of alcoholism Failed outpatient rehab Likely to go for inpatient rehab (3) Acute pain of left hip: Has chronic pain in the left hip Complains of more pain Avoiding narcotics And is controlled at rest (4) Esophageal stenosis: has had procedures for further Has been tolerating diet DVT prophylaxis We will start subcu heparin CODE STATUS Full PT and OT evaluation Likely to need placement and/or inpatient alcohol rehab Subjective 03/07 Patient was seen and examined the medical telemetry unit Has been complaining of left hip pain which has been ongoing Still has tremor but no palpitation and no nausea and vomiting 03/08 Patient is seen and examined in medical telemetry unit He remains generally very weak and lethargic and complains today of left hip pain Denies any abdominal pain, nausea and vomiting and his tremor has been controlled He has been out of bed yet Review of Systems Review of Systems: All systems reviewed and are unremarkable except as noted below Constitutional: + fatigue and + weakness Respiratory: no dyspnea Cardiovascular: + palpitations; no chest pain and no edema Gastrointestinal: + bloating; no nausea and no vomiting Musculoskeletal: + joint pain (Left hip joint) Neurologic: + tremor(s) (Of being out of the outstretched hands) Physical Exam Physical Exam: Lying in bed comfortably Constitutional: well nourished and + ill appearing; no acute distress Eyes: PERRL, conjunctivae normal, anicteric sclerae ENMT: external ear and nose normal, oropharynx normal Neck: trachea midline, no thyromegaly Respiratory: normal respiratory effort; no respiratory distress Cardiovascular: Rate/Rhythm: regular rate and + bradycardic Gastrointestinal (Abdomen): Inspection/Auscultation: abdomen normal to inspection; abdomen not distended Percussion/Palpation: + abdomen tender (Minimally in the epigastrium) and abdomen soft Musculoskeletal: Left hip pain with movement Neurologic: moves all extremities Motor/Sensory: + tremor (Very minimal of the outstretched hands) Psychiatric: Orientation: alert Affect: + depressed affect Mood: + anxious mood Lymphatic: no cervical or axillary lymphadenopathy Results & Data Vital Signs (Past 12 Hours) Vital Signs Temp Pulse Pulse Resp BP BP Pulse Ox 03/08/19 11:29 37.2 C 77 17 123/76 95 03/08/19 08:27 75 03/08/19 03:35 37.2 C 73 20 136/90 97 Laboratory Results Short CBC 03/08/19 Range/Units 05:58 WBC 8.29 (4.8-10.8) K/uL Hgb 11.2 L (14.0-18.0) g/dL Hct 32.9 L (42-52) % Plt Count 113 L (130-400) K/uL BMP 03/08/19 05:58 Sodium 130 L D Potassium 3.7 Chloride 97 L Carbon Dioxide 25 BUN 8 Creatinine 0.46 L Glucose 95 Calcium 8.5 Medications Administered Current Inpatient Medications Acetaminophen (Tylenol) 650 mg PO Q4H PRN PRN Reason: Pain or Fever Stop: 04/05/19 22:05 Last Admin: 03/08/19 10:10 Dose: 650 mg Documented by: Clonidine HCl (Catapres) 0.1 mg PO Q4H PRN PRN Reason: Hypertension Stop: 04/05/19 23:07 Last Admin: 03/07/19 12:55 Dose: 0.1 mg Documented by: Clonidine HCl (Catapres) 0.2 mg PO BID [facility] Stop: 04/06/19 20:59 Last Admin: 03/08/19 08:14 Dose: 0.2 mg Documented by: Gabapentin (Neurontin) 600 mg PO Q12H [facility] Stop: 03/09/19 10:31 Gabapentin (Neurontin) 600 mg PO Q24H [facility] Stop: 03/10/19 10:31 Heparin Sodium (Porcine) (Heparin Sodium (Porcine)) 5,000 units SQ Q12 [facility] Stop: 04/06/19 20:59 Last Admin: 03/08/19 08:15 Dose: 5,000 units Documented by: Lorazepam (Ativan) 1.5 mg in 3 mls @ 3 mls/min IV Q2H PRN PRN Reason: Anxiety/Agitation Stop: 04/05/19 22:05 Lidocaine (Lidoderm 5%) 1 patch TD QAM [facility] Stop: 04/05/19 19:29 Last Admin: 03/08/19 08:14 Dose: 1 patch Documented by: Miscellaneous (Remove Lidoderm Patch) 1 ea N/A DAILY@2100 [facility] Stop: 04/05/19 20:59 Last Admin: 03/07/19 21:08 Dose: 1 ea Documented by: Multivitamins/Minerals (Multivitamin W/ Minerals Tab) [facility] [place] Stop: 04/06/19 08:59 Last Admin: 03/08/19 08:14 Dose: 1 tab Documented by: Nitroglycerin (Nitrostat) 0.4 mg SL UD PRN PRN Reason: Chest Pain Stop: 04/05/19 22:05 Ondansetron HCl (Zofran) 4 mg IV Q6H PRN PRN Reason: Nausea Stop: 04/05/19 22:05 Thiamine HCl (Vitamin B-1) 100 mg PO QAM [facility] Stop: 04/06/19 08:59 Last Admin: 03/08/19 08:15 Dose: 100 mg Documented by: (1) Alcohol intoxication Complication of substance-induced condition: with unspecified complication Qualified Code(s): F10.929 - Alcohol use, unspecified with intoxication, unspecified
[2019-03-09 06:26] LABS: Basophils # (auto) 0.04 K/uL (0-0.2); Basophils % (auto) 0.6 %; Eosinophils # (auto) 0.35 K/uL (0-0.5); Eosinophils % (auto) 5.1 %; Hematocrit (blood only) 33.8 % (42-52); Hemoglobin 11.4 g/dL (14.0-18.0); Immature Granulocytes # (auto) 0.06 K/uL (0.00-0.02); Immature Granulocytes % (auto) 0.9 %; Lymphocytes # (auto) 1.17 K/uL (1.2-3.4); Lymphocytes % (auto) 17.1 %; Mean Corpuscular Hgb Conc 33.7 g/dL (32-36); Mean Corpuscular Volume 84.7 fL (80-100); Mean Platelet Volume 9.7 fL (7.4-10.4); Monocytes # (auto) 1.24 K/uL (0.11-0.59); Monocytes % (auto) 18.1 %; Neutrophils # (auto) 3.99 K/uL (1.4-6.5); Neutrophils % (auto) 58.2 %; Platelet Count 127 K/uL (130-400); RDW Standard Deviation 53.4 fL (36.4-46.3); Red Blood Count 3.99 M/uL (4.7-6.1); White Blood Count 6.85 K/uL (4.8-10.8)
[2019-03-09 07:02] LABS: Alanine Aminotransferase 28 U/L (12-78); Albumin Level 2.9 gm/dl (3.4-5.0); Aspartate Aminotransferase 37 U/L (15-37); BUN Creatinine Ratio 18.2 (10-20); Bilirubin Direct < 0.1 mg/dl (0-0.2); Blood Urea Nitrogen 8 mg/dl (7-18); Calcium 8.3 mg/dl (8.5-10.1); Carbon Dioxide 26 mmol/L (21-32); Chloride 100 mmol/L (98-107); Creatinine Clr Calc Pharmacy 165.1 ml/min; Est GFR (African American) > 150.0; Est GFR (Non-African American) 129.5; Glucose 87 mg/dl (70-99); Potassium 3.9 mmol/L (3.5-5.1); Sodium 133 mmol/L (136-145)
[2019-03-09 07:10] LABS: Alkaline Phosphatase 110 U/L (45-117); Bilirubin,Total 0.5 mg/dl (0.2-1); Phosphorus 4.2 mg/dl (2.5-4.9); Total Protein 6.6 gm/dl (6.4-8.2)
[2019-03-09] MEDS: ACETAMINOPHEN 325 MG TAB PO PRN ×3 (07:55→18:38)
[2019-03-09] MEDS: HEPARIN SOD 5,000 UNIT/0.5 ML VIAL SQ SCH ×2 (07:56→20:32)
[2019-03-09] MEDS: CEROVITE ADV FORMULA TAB PO SCH (07:56)
[2019-03-09] MEDS: THIAMINE HCL 100 MG TAB PO SCH (07:56)
[2019-03-09] MEDS: LIDOCAINE 5% 1 PATCH TD SCH (07:57)
[2019-03-09] MEDS: cloNIDine HCl 0.1 MG TAB PO SCH ×2 (07:57→20:33)
[2019-03-09] MEDS: GABAPENTIN 600 MG TAB PO SCH (10:42)
--- NOTE | 2019-03-09 12:49 | Hospitalist Progress Note ---
Date of Service March 09, 2019 Assessment & Plan (1) Alcohol intoxication: Has long history of alcoholism with recurrent admission with withdrawal/delirium tremens/intoxication Has been feeling generally weak and complains to have more pain in the left hip Denies any palpitation Tremors of the hands are limited Has been on alcohol withdrawal protocol Clinically much better today but remains extremely weak and lethargic Hemodynamically stable We will ask for PT and OT evaluation Denies any new symptoms and no symptoms of withdrawal (2) Alcohol abuse: History of alcoholism Failed outpatient rehab Likely to go for inpatient rehab (3) Acute pain of left hip: Has chronic pain in the left hip Complains of more pain Avoiding narcotics Pain seems to be controlled (4) Esophageal stenosis: has had procedures for further Has been tolerating diet DVT prophylaxis We will start subcu heparin CODE STATUS Full PT and OT evaluation Likely to need placement and/or inpatient alcohol rehab Subjective 03/07 Patient was seen and examined the medical telemetry unit Has been complaining of left hip pain which has been ongoing Still has tremor but no palpitation and no nausea and vomiting 03/08 Patient is seen and examined in medical telemetry unit He remains generally very weak and lethargic and complains today of left hip pain Denies any abdominal pain, nausea and vomiting and his tremor has been controlled He has been out of bed yet 03/09 The patient was seen and examined in medical telemetry unit He has been very lethargic and complains to have left hip pain Denies any palpitation, shortness of breath or any increasing tremors Review of Systems Review of Systems: All systems reviewed and are unremarkable except as noted below Constitutional: + fatigue and + weakness Cardiovascular: + palpitations; no chest pain and no edema Gastrointestinal: + bloating; no nausea and no vomiting Musculoskeletal: + joint pain (Left hip joint on movement) Neurologic: + tremor(s) (Of being out of the outstretched hands) Physical Exam Physical Exam: Lying in bed comfortably Constitutional: well nourished and + ill appearing; no acute distress Eyes: PERRL, conjunctivae normal, anicteric sclerae ENMT: external ear and nose normal, oropharynx normal Neck: trachea midline, no thyromegaly Respiratory: normal respiratory effort; no respiratory distress Cardiovascular: Rate/Rhythm: regular rate Gastrointestinal (Abdomen): Inspection/Auscultation: abdomen normal to insp ection; abdomen not distended Percussion/Palpation: + abdomen tender (Minimally in the epigastrium) and abdomen soft Neurologic: moves all extremities Motor/Sensory: + tremor (Very minimal of the outstretched hands) Psychiatric: Orientation: alert Affect: + depressed affect Mood: + anxious mood Lymphatic: no cervical or axillary lymphadenopathy Results & Data Vital Signs (Past 12 Hours) Vital Signs Temp Pulse Resp BP BP Pulse Ox 03/09/19 11:41 36.7 C 72 20 148/89 H 98 03/09/19 07:25 36.7 C 80 19 146/91 H 90 03/09/19 03:15 36.9 C 74 19 143/90 H 100 Laboratory Results Short CBC 03/09/19 Range/Units 05:35 WBC 6.85 (4.8-10.8) K/uL Hgb 11.4 L (14.0-18.0) g/dL Hct 33.8 L (42-52) % Plt Count 127 L (130-400) K/uL BMP 03/09/19 05:35 Sodium 133 L Potassium 3.9 Chloride 100 Carbon Dioxide 26 BUN 8 Creatinine 0.44 L Glucose 87 Calcium 8.3 L Liver Function 03/09/19 Range/Units 05:35 Total Bilirubin 0.5 (0.2-1) mg/dl Direct Bilirubin < 0.1 (0-0.2) mg/dl AST 37 (15-37) U/L ALT 28 (12-78) U/L Alkaline Phosphatase 110 (45-117) U/L Albumin 2.9 L (3.4-5.0) gm/dl Medications Administered Current Inpatient Medications Acetaminophen (Tylenol) 650 mg PO Q4H PRN PRN Reason: Pain or Fever Stop: 04/05/19 22:05 Last Admin: 03/09/19 07:55 Dose: 650 mg Documented by: Clonidine HCl (Catapres) 0.1 mg PO Q4H PRN PRN Reason: Hypertension Stop: 04/05/19 23:07 Last Admin: 03/07/19 12:55 Dose: 0.1 mg Documented by: Clonidine HCl (Catapres) 0.2 mg PO BID [facility] Stop: 04/06/19 20:59 Last Admin: 03/09/19 07:57 Dose: 0.2 mg Documented by: Gabapentin (Neurontin) 600 mg PO Q24H [facility] Stop: 03/10/19 10:31 Heparin Sodium (Porcine) (Heparin Sodium (Porcine)) 5,000 units SQ Q12 [facility] Stop: 04/06/19 20:59 Last Admin: 03/09/19 07:56 Dose: 5,000 units Documented by: Lorazepam (Ativan) 1.5 mg in 3 mls @ 3 mls/min IV Q2H PRN PRN Reason: Anxiety/Agitation Stop: 04/05/19 22:05 Lidocaine (Lidoderm 5%) 1 patch TD [facility] Stop: 04/05/19 19:29 Last Admin: 03/09/19 07:57 Dose: 1 patch Documented by: Miscellaneous (Remove Lidoderm Patch) 1 ea N/A DAILY@2100 [facility] Stop: 04/05/19 20:59 Last Admin: 03/08/19 20:10 Dose: 1 ea Documented by: Multivitamins/Minerals (Multivitamin W/ Minerals Tab) 1 tab PO [facility] Stop: 04/06/19 08:59 Last Admin: 03/09/19 07:56 Dose: 1 tab Documented by: Nitroglycerin (Nitrostat) 0.4 mg SL UD PRN PRN Reason: Chest Pain Stop: 04/05/19 22:05 Ondansetron HCl (Zofran) 4 mg IV Q6H PRN PRN Reason: Nausea Stop: 04/05/19 22:05 Thiamine HCl (Vitamin B-1) [facility] Stop: 04/06/19 08:59 Last Admin: 03/09/19 07:56 Dose: 100 mg Documented by: (1) Alcohol intoxication Complication of substance-induced condition: with unspecified complication Qualified Code(s): F10.929 - Alcohol use, unspecified with intoxication, unspecified
[2019-03-10] MEDS: cloNIDine HCl 0.1 MG TAB PO PRN ×3 (00:32→17:13)
[2019-03-10] MEDS: ACETAMINOPHEN 325 MG TAB PO PRN ×2 (05:43→13:09)
[2019-03-10] MEDS: LIDOCAINE 5% 1 PATCH TD SCH (08:12)
[2019-03-10] MEDS: CEROVITE ADV FORMULA TAB PO SCH (08:12)
[2019-03-10] MEDS: cloNIDine HCl 0.1 MG TAB PO SCH ×2 (08:12→19:58)
[2019-03-10] MEDS: THIAMINE HCL 100 MG TAB PO SCH (08:12)
[2019-03-10] MEDS: HEPARIN SOD 5,000 UNIT/0.5 ML VIAL SQ SCH ×2 (08:12→19:58)
[2019-03-10 09:48] LABS: Hematocrit (blood only) 34.7 % (42-52); Hemoglobin 12.1 g/dL (14.0-18.0); Mean Corpuscular Hgb Conc 34.9 g/dL (32-36); Mean Corpuscular Volume 85.3 fL (80-100); Mean Platelet Volume 8.8 fL (7.4-10.4); Platelet Count 174 K/uL (130-400); RDW Coefficient of Variation 17.1 % (11.5-14.5); RDW Standard Deviation 53.1 fL (36.4-46.3); Red Blood Count 4.07 M/uL (4.7-6.1)
[2019-03-10] MEDS ORDERED: GABAPENTIN 600 MG TAB PO SCH (10:30)
--- NOTE | 2019-03-10 11:50 | Hospitalist Progress Note ---
Date of Service March 10, 2019 Assessment & Plan (1) Alcohol intoxication: Has long history of alcoholism with recurrent admission with withdrawal/delirium tremens/intoxication Has been feeling generally weak and complains to have more pain in the left hip Denies any palpitation Tremors of the hands are limited Has been on alcohol withdrawal protocol Clinically much better today but remains extremely weak and lethargic Hemodynamically stable We will ask for PT and OT evaluation Denies any new symptoms and no symptoms of withdrawal Remains stable but generally weak and lethargic Awaiting PT and OT evaluation (2) Alcohol abuse: History of alcoholism Failed outpatient rehab Likely to go for inpatient rehab (3) Acute pain of left hip: Has chronic pain in the left hip Complains of more pain Avoiding narcotics Pain seems to be controlled (4) Esophageal stenosis: has had procedures for further Has been tolerating diet DVT prophylaxis We will start subcu heparin CODE STATUS Full PT and OT evaluation Likely to need placement and/or inpatient alcohol rehab Subjective 03/07 Patient was seen and examined the medical telemetry unit Has been complaining of left hip pain which has been ongoing Still has tremor but no palpitation and no nausea and vomiting 03/08 Patient is seen and examined in medical telemetry unit He remains generally very weak and lethargic and complains today of left hip pain Denies any abdominal pain, nausea and vomiting and his tremor has been controlled He has been out of bed yet 03/09 The patient was seen and examined in medical telemetry unit He has been very lethargic and complains to have left hip pain Denies any palpitation, shortness of breath or any increasing tremors 03/10 Patient was seen and examined in medical telemetry unit He remains weak and lethargic Denies any other symptoms and does not have any withdrawal symptoms and/or intoxication from alcohol His main problem remains ambulatory dysfunction likely secondary to prolonged use of alcohol Review of Systems Review of Systems: All systems reviewed and are unremarkable except as noted below Constitutional: + fatigue and + weakness Cardiovascular: no chest pain and no edema Gastrointestinal: + bloating; no nausea and no vomiting Musculoskeletal: + joint pain (Left hip joint on movement) Neurologic: + tremor(s) (Of being out of the outstretched hands) Physical Exam Physical Exam: Lying in bed comfortably Constitutional: well nourished; no acute distress Eyes: PERRL, conjunctivae normal, anicteric sclerae ENMT: external ear and nose normal, oropharynx normal Neck: trachea midline, no thyromegaly Respiratory: normal respiratory effort; no respiratory distress Auscultation: lungs clear to auscultation bilaterally Cardiovascular: Rate/Rhythm: regular rate and regular rhythm Heart Sounds: no murmur Gastrointestinal (Abdomen): Inspection/Auscultation: abdomen normal to inspection; abdomen not distended Percussion/Palpation: + abdomen tender (Minimally in the epigastrium) and abdomen soft Neurologic: moves all extremities; no focal motor deficits Motor/Sensory: no tremor Generally weak Psychiatric: Orientation: alert Affect: + depressed affect Mood: + anxious mood Lymphatic: no cervical or axillary lymphadenopathy Results & Data Vital Signs (Past 12 Hours) Vital Signs Temp Pulse Resp BP Pulse Ox 03/10/19 08:41 36.7 C 59 L 18 155/89 H 98 03/10/19 05:11 162/78 H 03/10/19 03:00 36.4 C L 62 18 171/91 H 96 Laboratory Results Short CBC 03/10/19 Range/Units 09:31 WBC 7.70 (4.8-10.8) K/uL Hgb 12.1 L (14.0-18.0) g/dL Hct 34.7 L (42-52) % Plt Count 174 (130-400) K/uL Medications Administered Current Inpatient Medications Acetaminophen (Tylenol) 650 mg PO Q4H PRN PRN Reason: Pain or Fever Stop: 04/05/19 22:05 Last Admin: 03/10/19 05:43 Dose: 650 mg Documented by: Clonidine HCl (Catapres) 0.1 mg PO Q4H PRN PRN Reason: Hypertension Stop: 04/05/19 23:07 Last Admin: 03/10/19 05:36 Dose: 0.1 mg Documented by: Clonidine HCl (Catapres) 0.2 mg PO BID [facility] Stop: 04/06/19 20:59 Last Admin: 03/10/19 08:12 Dose: 0.2 mg Documented by: Heparin Sodium (Porcine) (Heparin Sodium (Porcine)) 5,000 units SQ Q12 [facility] Stop: 04/06/19 20:59 Last Admin: 03/10/19 08:12 Dose: 5,000 units Documented by: Lorazepam (Ativan) 1.5 mg in 3 mls @ 3 mls/min IV Q2H PRN PRN Reason: Anxiety/Agitation Stop: 04/05/19 22:05 Lidocaine (Lidoderm 5%) [facility] [place]: 04/05/19 19:29 Last Admin: 03/10/19 08:12 Dose: 1 patch Documented by: Miscellaneous (Remove Lidoderm Patch) 1 ea N/A DAILY@2100 [facility] Stop: 04/05/19 20:59 Last Admin: 03/09/19 20:33 Dose: 1 ea Documented by: Multivitamins/Minerals (Multivitamin W/ Minerals Tab) 1 tab [facility] [place] Stop: 04/06/19 08:59 Last Admin: 03/10/19 08:12 Dose: 1 tab Documented by: Nitroglycerin (Nitrostat) 0.4 mg SL UD PRN PRN Reason: Chest Pain Stop: 04/05/19 22:05 Ondansetron HCl (Zofran) 4 mg IV Q6H PRN PRN Reason: Nausea Stop: 04/05/19 22:05 Thiamine HCl (Vitamin B-1) 100 mg PO [facility] Stop: 04/06/19 08:59 Last Admin: 03/10/19 08:12 Dose: 100 mg Documented by: (1) Alcohol intoxication Complication of substance-induced condition: with unspecified complication Qualified Code(s): F10.929 - Alcohol use, unspecified with intoxication, unspecified
[2019-03-11] MEDS: cloNIDine HCl 0.1 MG TAB PO PRN ×2 (04:57→12:42)
[2019-03-11] MEDS: cloNIDine HCl 0.1 MG TAB PO SCH ×2 (08:37→20:42)
[2019-03-11] MEDS: CEROVITE ADV FORMULA TAB PO SCH (08:37)
[2019-03-11] MEDS: LIDOCAINE 5% 1 PATCH TD SCH (08:37)
[2019-03-11] MEDS: THIAMINE HCL 100 MG TAB PO SCH (08:38)
[2019-03-11] MEDS: HEPARIN SOD 5,000 UNIT/0.5 ML VIAL SQ SCH ×2 (08:38→20:42)
[2019-03-11 09:48] LABS: BUN Creatinine Ratio 17.3 (10-20); Calcium 9.3 mg/dl (8.5-10.1); Creatinine Clr Calc Pharmacy 134.1 ml/min; Est GFR (African American) 134.9; Est GFR (Non-African American) 116.4; Potassium 4.1 mmol/L (3.5-5.1)
[2019-03-11] MEDS: ACETAMINOPHEN 325 MG TAB PO PRN ×3 (14:20→22:32)
--- NOTE | 2019-03-11 15:14 | Hospitalist Progress Note ---
Date of Service March 11, 2019 Assessment & Plan (1) Alcohol intoxication: Has long history of alcoholism with recurrent admission with withdrawal/delirium tremens/intoxication Has been feeling generally weak and complains to have more pain in the left hip Denies any palpitation Tremors of the hands are limited Has been on alcohol withdrawal protocol Clinically much better today but remains extremely weak and lethargic Hemodynamically stable We will ask for PT and OT evaluation Denies any new symptoms and no symptoms of withdrawal Remains stable but generally weak and lethargic Will ask for PT OT and OT reevaluation (2) Alcohol abuse: History of alcoholism Failed outpatient rehab Likely to go for inpatient rehab (3) Acute pain of left hip: Has chronic pain in the left hip Complains of more pain Avoiding narcotics Pain seems to be controlled (4) Esophageal stenosis: has had procedures for further Has been tolerating diet DVT prophylaxis We will start subcu heparin CODE STATUS Full PT and OT evaluation Likely to need placement and/or inpatient alcohol rehab No facility is going to accept him as an inpatient Like to go home with home health after repeat PT and OT evaluation Subjective 03/07 Patient was seen and examined the medical telemetry unit Has been complaining of left hip pain which has been ongoing Still has tremor but no palpitation and no nausea and vomiting 03/08 Patient is seen and examined in medical telemetry unit He remains generally very weak and lethargic and complains today of left hip pain Denies any abdominal pain, nausea and vomiting and his tremor has been controlled He has been out of bed yet 03/09 The patient was seen and examined in medical telemetry unit He has been very lethargic and complains to have left hip pain Denies any palpitation, shortness of breath or any increasing tremors 03/10 Patient was seen and examined in medical telemetry unit He remains weak and lethargic Denies any other symptoms and does not have any withdrawal symptoms and/or intoxication from alcohol His main problem remains ambulatory dysfunction likely secondary to prolonged use of alcohol 03/11 The patient was seen and examined in medical telemetry unit He has been complaining of weakness and pain in the left Seems to be a little bit better today and denies any tremor and/or palpitation Review of Systems Review of Systems: All systems reviewed and are unremarkable except as noted below Constitutional: + fatigue and + weakness Gastrointestinal: + bloating; no nausea and no vomiting Musculoskeletal: + joint pain (Left hip joint on movement) Physical Exam Constitutional: well nourished; no acute distress Eyes: PERRL, conjunctivae normal, anicteric sclerae ENMT: external ear and nose normal, oropharynx normal Neck: trachea midline, no thyromegaly Respiratory: normal respiratory effort; no respiratory distress Auscultation: lungs clear to auscultation bilaterally Cardiovascular: Rate/Rhythm: regular rate and regular rhythm Heart Sounds: no murmur Gastrointestinal (Abdomen): Inspection/Auscultation: abdomen normal to inspection; abdomen not distended Percussion/Palpation: + abdomen tender (Minimally in the epigastrium) and abdomen soft Neurologic: moves all extremities; no focal motor deficits Motor/Sensory: no tremor Psychiatric: Orientation: alert Affect: + depressed affect Mood: + anxious mood Lymphatic: no cervical or axillary lymphadenopathy Results & Data Vital Signs (Past 12 Hours) Vital Signs Temp Pulse Pulse Pulse Resp BP BP 03/11/19 15:07 36.7 C 85 18 149/94 H 03/11/19 12:07 36.5 C 80 20 161/95 H 03/11/19 08:21 63 03/11/19 07:00 36.6 C 67 20 163/99 H 03/11/19 05:57 157/64 H 03/11/19 04:54 36.8 C 68 177/100 H 180/105 H Pulse Ox 03/11/19 15:07 97 03/11/19 12:07 98 03/11/19 08:21 03/11/19 07:00 97 03/11/19 05:57 03/11/19 04:54 18 L Laboratory Results BMP 03/11/19 08:57 Sodium 129 L Potassium 4.1 Chloride 95 L Carbon Dioxide 27 BUN 10 Creatinine 0.57 L Glucose 89 Calcium 9.3 Medications Administered Current Inpatient Medications Acetaminophen (Tylenol) 650 mg PO Q4H PRN PRN Reason: Pain or Fever Stop: 04/05/19 22:05 Last Admin: 03/11/19 14:20 Dose: 650 mg Documented by: Clonidine HCl (Catapres) 0.1 mg PO Q4H PRN PRN Reason: Hypertension Stop: 04/05/19 23:07 Last Admin: 03/11/19 12:42 Dose: 0.1 mg Documented by: Clonidine HCl (Catapres) 0.2 mg PO BID [facility] Stop: 04/06/19 20:59 Last Admin: 03/11/19 08:37 Dose: 0.2 mg Documented by: Heparin Sodium (Porcine) (Heparin Sodium (Porcine)) 5,000 units SQ Q12 [facility] Stop: 04/06/19 20:59 Last Admin: 03/11/19 08:38 Dose: 5,000 units Documented by: Lorazepam (Ativan) 1.5 mg in 3 mls @ 3 mls/min IV Q2H PRN PRN Reason: Anxiety/Agitation Stop: 04/05/19 22:05 Last Admin: 03/11/19 02:10 Dose: 3 mls/min Documented by: Lidocaine (Lidoderm 5%) 1 patch TD QAM [facility] Stop: 04/05/19 19:29 Last Admin: 03/11/19 08:37 Dose: 1 patch Documented by: Miscellaneous (Remove Lidoderm Patch) 1 ea N/A DAILY@2100 [facility] Stop: 04/05/19 20:59 Last Admin: 03/10/19 19:58 Dose: 1 ea Documented by: Multivitamins/Minerals (Multivitamin W/ Minerals Tab) 1 tab PO QAM [facility] Stop: 04/06/19 08:59 Last Admin: 03/11/19 08:37 Dose: 1 tab Documented by: Nitroglycerin (Nitrostat) 0.4 mg SL UD PRN PRN Reason: Chest Pain Stop: 04/05/19 22:05 Ondansetron HCl (Zofran) 4 mg IV Q6H PRN PRN Reason: Nausea Stop: 04/05/19 22:05 Thiamine HCl (Vitamin B-1) 100 mg PO QAM [facility] Stop: 04/06/19 08:59 Last Admin: 03/11/19 08:38 Dose: 100 mg Documented by: Tramadol HCl (Ultram) 25 mg PO Q4H PRN PRN Reason: Pain Stop: 04/10/19 10:47 (1) Alcohol intoxication Complication of substance-induced condition: with unspecified complication Qualified Code(s): F10.929 - Alcohol use, unspecified with intoxication, unspecified
[2019-03-11] MEDS: TRAMADOL HCL 50 MG TABLET PO PRN (15:59)
[2019-03-12] MEDS: TRAMADOL HCL 50 MG TABLET PO PRN ×4 (00:53→22:33)
[2019-03-12] MEDS: ACETAMINOPHEN 325 MG TAB PO PRN ×3 (08:00→20:55)
[2019-03-12] MEDS: cloNIDine HCl 0.1 MG TAB PO SCH ×2 (08:03→20:56)
[2019-03-12] MEDS: THIAMINE HCL 100 MG TAB PO SCH (08:03)
[2019-03-12] MEDS: CEROVITE ADV FORMULA TAB PO SCH (08:04)
[2019-03-12] MEDS: HEPARIN SOD 5,000 UNIT/0.5 ML VIAL SQ SCH ×2 (08:04→20:57)
[2019-03-12] MEDS: LIDOCAINE 5% 1 PATCH TD SCH (08:06)
[2019-03-12 08:11] LABS: Phosphorus 4.5 mg/dl (2.5-4.9)
[2019-03-12] MEDS ORDERED: KETOROLAC TROMETHAMINE 15 MG/ML VIAL IV ONE (08:29)
--- NOTE | 2019-03-12 10:17 | Hospitalist Progress Note ---
Date of Service March 12, 2019 Assessment & Plan (1) Alcohol intoxication: Has long history of alcoholism with recurrent admission with withdrawal/delirium tremens/intoxication Has been feeling generally weak and complains to have more pain in the left hip Denies any palpitation Tremors of the hands are limited Has been on alcohol withdrawal protocol Clinically much better today but remains extremely weak and lethargic Hemodynamically stable We will ask for PT and OT evaluation Denies any new symptoms and no symptoms of withdrawal Remains stable but generally weak and lethargic Will ask for PT OT and OT reevaluation Like to be discharged this afternoon following PT and OT evaluation (2) Alcohol abuse: History of alcoholism Failed outpatient rehab Will not be going to inpatient rehab and social service has been working on the He wants to go home (3) Acute pain of left hip: Has chronic pain in the left hip Complains of more pain Avoiding narcotics Pain seems to be controlled (4) Esophageal stenosis: has had procedures for further Has been tolerating diet DVT prophylaxis We will start subcu heparin CODE STATUS Full PT and OT evaluation Likely to need placement and/or inpatient alcohol rehab No facility is going to accept him as an inpatient Like to go home with home health after repeat PT and OT evaluation Likely be discharged this afternoon following PT and OT evaluation Subjective 03/07 Patient was seen and examined the medical telemetry unit Has been complaining of left hip pain which has been ongoing Still has tremor but no palpitation and no nausea and vomiting 03/08 Patient is seen and examined in medical telemetry unit He remains generally very weak and lethargic and complains today of left hip pain Denies any abdominal pain, nausea and vomiting and his tremor has been controlled He has been out of bed yet 03/09 The patient was seen and examined in medical telemetry unit He has been very lethargic and complains to have left hip pain Denies any palpitation, shortness of breath or any increasing tremors 03/10 Patient was seen and examined in medical telemetry unit He remains weak and lethargic Denies any other symptoms and does not have any withdrawal symptoms and/or intoxication from alcohol His main problem remains ambulatory dysfunction likely secondary to prolonged use of alcohol 03/11 The patient was seen and examined in medical telemetry unit He has been complaining of weakness and pain in the left Seems to be a little bit better today and denies any tremor and/or palpitation 03/12 Patient was seen and examined in the medical telemetry unit He complains to have frontal headache and wants to have some medications for the His left hip pain seems to be stable Denies any other symptoms Review of Systems Review of Systems: All systems reviewed and are unremarkable except as noted below Constitutional: + fatigue and + weakness Musculoskeletal: + joint pain (Left hip joint on movement) Neurologic: + gait abnormality (Ongoing and has been getting physical therapy) Physical Exam Physical Exam: Lying in bed comfortably complains to have ongoing headache Constitutional: well nourished; no acute distress Eyes: PERRL, conjunctivae normal, anicteric sclerae ENMT: external ear and nose normal, oropharynx normal Neck: trachea midline, no thyromegaly Respiratory: normal respiratory effort; no respiratory distress Auscultation: lungs clear to auscultation bilaterally Cardiovascular: Rate/Rhythm: regular rate and regular rhythm Heart Sounds: no murmur Gastrointestinal (Abdomen): Inspection/Auscultation: abdomen normal to inspection; abdomen not distended Percussion/Palpation: abdomen soft Neurologic: moves all extremities; no focal motor deficits Motor/Sensory: n o tremor Psychiatric: Orientation: alert Affect: + depressed affect Mood: + anxi ous mood Lymphatic: no cervical or axillary lymphadenopathy Results & Data Vital Signs (Past 12 Hours) Vital Signs Temp Pulse Pulse Resp BP BP Pulse Ox 03/12/19 08:00 75 03/12/19 07:00 36.8 C 71 18 170/105 H 165/90 H 96 03/12/19 05:13 36.7 C 72 18 170/97 H 99 03/12/19 01:02 75 03/11/19 23:02 36.9 C 70 16 159/88 H 97 Medications Administered Current Inpatient Medications Acetaminophen (Tylenol) 650 mg PO Q4H PRN PRN Reason: Pain or Fever Stop: 04/05/19 22:05 Last Admin: 03/12/19 08:00 Dose: 650 mg Documented by: Clonidine HCl (Catapres) 0.1 mg PO Q4H PRN PRN Reason: Hypertension Stop: 04/05/19 23:07 Last Admin: 03/11/19 12:42 Dose: 0.1 mg Documented by: Clonidine HCl (Catapres) 0.2 mg PO BID [facility] Stop: 04/06/19 20:59 Last Admin: 03/12/19 08:03 Dose: 0.2 mg Documented by: Heparin Sodium (Porcine) (Heparin Sodium (Porcine)) 5,000 units SQ Q12 [facility] Stop: 04/06/19 20:59 Last Admin: 03/12/19 08:04 Dose: 5,000 units Documented by: Lorazepam (Ativan) 1.5 mg in 3 mls @ 3 mls/min IV Q2H PRN PRN Reason: Anxiety/Agitation Stop: 04/05/19 22:05 Last Admin: 03/11/19 02:10 Dose: 3 mls/min Documented by: Lidocaine (L[facility]oderm 5%) [facility] [place]: 04/05/19 19:29 Last Admin: 03/12/19 08:06 Dose: 1 patch Documented by: Miscellaneous (Remove Lidoderm Patch) 1 ea N/A DAILY@2100 [facility] Stop: 04/05/19 20:59 Last Admin: 03/11/19 20:42 Dose: 1 ea Documented by: Multivitamins/Minerals (Multivitamin W/ Minerals Tab) 1 [place] [facility] [place] [facility] [place]: 04/06/19 08:59 Last Admin: 03/12/19 08:04 Dose: 1 tab Documented by: Nitroglycerin (Nitrostat) 0.4 mg SL UD PRN PRN Reason: Chest Pain Stop: 04/05/19 22:05 Ondansetron HCl (Zofran) 4 mg IV Q6H PRN PRN Reason: Nausea Stop: 04/05/19 22:05 Thiamine HCl (Vitamin B-1) 100 [facility] [place]: 04/06/19 08:59 Last Admin: 03/12/19 08:03 Dose: 100 mg Documented by: Tramadol HCl (Ultram) 25 mg PO Q4H PRN PRN Reason: Pain Stop: 04/10/19 10:47 Last Admin: 03/12/19 06:55 Dose: 25 mg Documented by: (1) Alcohol intoxication Complication of substance-induced condition: with unspecified complication Qualified Code(s): F10.929 - Alcohol use, unspecified with intoxication, unspecified
[2019-03-13] MEDS: ACETAMINOPHEN 325 MG TAB PO PRN (06:43)
[2019-03-13] MEDS: TRAMADOL HCL 50 MG TABLET PO PRN ×2 (07:43→12:04)
[2019-03-13 07:44] LABS: Hematocrit (blood only) 34.6 % (42-52); Hemoglobin 11.8 g/dL (14.0-18.0); Mean Corpuscular Hgb Conc 34.1 g/dL (32-36); Mean Corpuscular Volume 85.2 fL (80-100); Mean Platelet Volume 8.4 fL (7.4-10.4); Platelet Count 291 K/uL (130-400); RDW Standard Deviation 53.1 fL (36.4-46.3); Red Blood Count 4.06 M/uL (4.7-6.1); White Blood Count 8.34 K/uL (4.8-10.8)
[2019-03-13] MEDS: LIDOCAINE 5% 1 PATCH TD SCH (07:44)
[2019-03-13] MEDS: THIAMINE HCL 100 MG TAB PO SCH (07:44)
[2019-03-13] MEDS: cloNIDine HCl 0.1 MG TAB PO SCH (07:44)
[2019-03-13] MEDS: CEROVITE ADV FORMULA TAB PO SCH (07:44)
[2019-03-13] MEDS: HEPARIN SOD 5,000 UNIT/0.5 ML VIAL SQ SCH (07:45)
--- NOTE | 2019-03-13 11:54 | CT Scan Report ---
HEAD CT NONCONTRAST CT DOSE: 537.48 mGy.cm HISTORY: Severe Headache TECHNIQUE: Multiaxial CT images of the head were performed without the use of intravenous contrast. A utomated exposure control was utilized for this study. A dose lowering technique was utilized adheri ng to the principles of ALARA. Comparison: Head CT 08/18/2018. Findings: The paranasal sinuses and mastoid air cells are clear. The calvarium and skull base are int act. There is no mass, hematoma, midline shift, acute infarct. White matter hypodensity is nonspecifi c but suggestive of microvascular ischemic change. The ventricles and sulci demonstrate mild age-rela chidi involutional changes. Old punctate lacunar infarct within the left basal ganglia remains unchange d. Impression: No significant change compared to the prior study. No acute intracranial abnormality. Electronically signed by: Jigar Cassidy M.D. 03/13/2019 11:53 AM
--- NOTE | 2019-03-13 13:21 | Hospitalist Progress Note ---
Date of Service March 13, 2019 Assessment & Plan (1) Alcohol intoxication: Has long history of alcoholism with recurrent admission with withdrawal/delirium tremens/intoxication Has been feeling generally weak and complains to have more pain in the left hip Denies any palpitation Tremors of the hands are limited Has been on alcohol withdrawal protocol Clinically much better today but remains extremely weak and lethargic Hemodynamically stable We will ask for PT and OT evaluation Denies any new symptoms and no symptoms of withdrawal Remains stable but generally weak and lethargic Will ask for PT OT and OT reevaluation Like to be discharged this afternoon following PT and OT evaluation Has been getting PT and OT and is doing pretty good with it Headache Bifrontal without any associated symptoms CT scan of the head has been negative We will continue with Ultram Discharge the patient (2) Alcohol abuse: History of alcoholism Failed outpatient rehab Will not be going to inpatient rehab and social service has been working on the He wants to go home Advised to quit drinking (3) Acute pain of left hip: Has chronic pain in the left hip Complains of more pain Avoiding narcotics Pain seems to be controlled-does not have any acute arthritis involving the left hip (4) Esophageal stenosis: has had procedures for further Has been tolerating diet DVT prophylaxis We will start subcu heparin CODE STATUS Full PT and OT evaluation Likely to need placement and/or inpatient alcohol rehab No facility is going to accept him as an inpatient Like to go home with home health after repeat PT and OT evaluation Likely be discharged this afternoon following PT and OT evaluation Will discharge home this afternoon Subjective 03/07 Patient was seen and examined the medical telemetry unit Has been complaining of left hip pain which has been ongoing Still has tremor but no palpitation and no nausea and vomiting 03/08 Patient is seen and examined in medical telemetry unit He remains generally very weak and lethargic and complains today of left hip pain Denies any abdominal pain, nausea and vomiting and his tremor has been controlled He has been out of bed yet 03/09 The patient was seen and examined in medical telemetry unit He has been very lethargic and complains to have left hip pain Denies any palpitation, shortness of breath or any increasing tremors 03/10 Patient was seen and examined in medical telemetry unit He remains weak and lethargic Denies any other symptoms and does not have any withdrawal symptoms and/or intoxication from alcohol His main problem remains ambulatory dysfunction likely secondary to prolonged use of alcohol 03/11 The patient was seen and examined in medical telemetry unit He has been complaining of weakness and pain in the left Seems to be a little bit better today and denies any tremor and/or palpitation 03/12 Patient was seen and examined in the medical telemetry unit He complains to have frontal headache and wants to have some medications for the His left hip pain seems to be stable Denies any other symptoms 03/13 Patient was seen and examined in medical telemetry unit He continues to have bifrontal headache without any associated symptoms He has generalized weakness and left hip pain No signs and/or symptoms of withdrawal We will go home this afternoon Review of Systems Review of Systems: All systems reviewed and are unremarkable except as noted below Constitutional: + fatigue and + weakness Gastrointestinal: + bloating; no nausea and no vomiting Musculoskeletal: + joint pain (Left hip joint on movement) Neurologic: + gait abnormality (Ongoing and has been getting physical therapy) Physical Exam Physical Exam: No apparent distress at rest Constitutional: well nourished; no acute distress Eyes: PERRL, conjunctivae normal, anicteric sclerae ENMT: external ear and nose normal, oropharynx normal Neck: trachea midline, no thyromegaly Respiratory: normal respiratory effort; no respiratory distress Auscultation: lungs clear to auscultation bilaterally Cardiovascular: Rate/Rhythm: regular rate and regular rhythm Heart Sounds: no murmur Gastrointestinal (Abdomen): Inspection/Auscultation: abdomen normal to inspection; abdomen not distended Percussion/Palpation: abdomen soft Musculoskeletal: Mild to moderate left hip pain on ambulation Neurologic: moves all extremities; no focal motor deficits Motor/Sensory: no tremor Ongoing headache-CT scan of the head has been negative for any acute condition Psychiatric: Orientation: alert Affect: + depressed affect Mood: + anxious mood Lymphatic: no cervical or axillary lymphadenopathy Results & Data Vital Signs (Past 12 Hours) Vital Signs Temp Pulse Pulse Resp BP BP Pulse Ox 03/13/19 11:18 36.7 C 57 L 18 110/71 96 03/13/19 08:00 70 03/13/19 07:09 36.8 C 69 18 163/88 H 96 03/13/19 03:00 36.5 C 71 20 164/96 H 97 Laboratory Results Short CBC 03/13/19 Range/Units 07:10 WBC 8.34 (4.8-10.8) K/uL Hgb 11.8 L (14.0-18.0) g/dL Hct 34.6 L (42-52) % Plt Count 291 (130-400) K/uL Medications Administered Current Inpatient Medications Acetaminophen (Tylenol) 650 mg PO Q4H PRN PRN Reason: Pain or Fever Stop: 04/05/19 22:05 Last Admin: 03/13/19 06:43 Dose: 650 mg Documented by: Clonidine HCl (Catapres) 0.1 mg PO Q4H PRN PRN Reason: Hypertension Stop: 04/05/19 23:07 Last Admin: 03/11/19 12:42 Dose: 0.1 mg Documented by: Clonidine HCl (Catapres) 0.2 mg PO BID [facility] Stop: 04/06/19 20:59 Last Admin: 03/13/19 07:44 Dose: 0.2 mg Documented by: Heparin Sodium (Porcine) (Heparin Sodium (Porcine)) 5,000 units SQ Q12 [facility] Stop: 04/06/19 20:59 Last Admin: 03/13/19 07:45 Dose: 5,000 units Documented by: Lorazepam (Ativan) 1.5 mg in 3 mls @ 3 mls/min IV Q2H PRN PRN Reason: Anxiety/Agitation Stop: 04/05/19 22:05 Last Admin: 03/11/19 02:10 Dose: 3 mls/min Documented by: Lidocaine (Lidoderm 5%) 1 patch TD QAM [facility] Stop: 04/05/19 19:29 Last Admin: 03/13/19 07:44 Dose: 1 patch Documented by: Miscellaneous (Remove Lidoderm Patch) 1 ea N/A DAILY@2100 [facility] Stop: 04/05/19 20:59 Last Admin: 03/12/19 20:58 Dose: 1 ea Documented by: Multivitamins/Minerals (Multivitamin W/ Minerals Tab) 1 tab PO QAM [facility] Stop: 04/06/19 08:59 Last Admin: 03/13/19 07:44 Dose: 1 tab Documented by: Nitroglycerin (Nitrostat) 0.4 mg SL UD PRN PRN Reason: Chest Pain Stop: 04/05/19 22:05 Ondansetron HCl (Zofran) 4 mg IV Q6H PRN PRN Reason: Nausea Stop: 04/05/19 22:05 Thiamine HCl (Vitamin B-1) 100 mg PO QAM [facility] Stop: 04/06/19 08:59 Last Admin: 03/13/19 07:44 Dose: 100 mg Documented by: Tramadol HCl (Ultram) 50 mg PO Q4H PRN PRN Reason: Pain Stop: 04/10/19 10:47 Last Admin: 03/13/19 12:04 Dose: 50 mg Documented by: (1) Alcohol intoxication Complication of substance-induced condition: with unspecified complication Qualified Code(s): F10.929 - Alcohol use, unspecified with intoxication, unspecified
--- NOTE | 2019-03-14 07:21 | Discharge Summary ---
Date of Service March 14, 2019 Admission HPI Per Admitting Provider DICTATED BY: Marcus Dalton MD DATE OF ADMISSION: 03/06/2019 CHIEF COMPLAINT: Hip pain, ambulatory dysfunction. HISTORY OF PRESENT ILLNESS: This is a 53-year-old male with past medical history significant for frequent admission to the hospital for alcoholism, long history of chronic hip pain, history of hyponatremia, esophageal strictures, status post dilatation, history of hypertension, frequent falls, tobacco abuse, history of aortic root dilatation, currently living in an apartment , was brought in for alcohol intoxication. The patient was seemed to be found on the ground in [facility] by [place] [employer]. The patient says that he only drank 2 beers today, but his alcohol level was greater than 400 in the ER. Complains of hip pain. He says he could not walk, he could not go back. He wants to go to rehab. Denies any other complaints. Denies any headache. He says his vision is not great and he uses glasses. Denies any cough. Says he is swallowing okay. Says he is eating okay. Denies any chest pain, no nausea, no abdominal pain. Normal bowel and bladder movements. Denies any bleeding episodes. Currently resting comfortably and hemodynamically stable. Admission Exam Per Admitting Provider GENERAL: The patient is of moderate built, not in acute distress. VITAL SIGNS: Temperature 36.6, pulse 74, respiratory rate 16, blood pressure 161/90, oxygen 95% on room air. HEENT: No pallor, no icterus. Pupils equal, round, reactive to light. NECK: No JVD, no neck masses, no carotid bruits. CARDIOVASCULAR: S1, S2 heard, regular rate and rhythm, no murmur, no gallop. RESPIRATORY SYSTEM: Normal AP diameter. No accessory muscle use. No wheezing, no crackles. ABDOMEN: Soft, bowel sounds present, nontender. No distention. CENTRAL NERVOUS SYSTEM: Alert and awake, hard of hearing. Obeys simple commands. Moves extremities. EXTREMITIES: No edema, no erythema. Principal Diagnosis Ambulatory dysfunction , alcohol abuse with recurrent admissions for withdrawal and/or intoxication Discharge Exam Constitutional well nourished; no acute distress Eyes PERRL, conjunctivae normal, anicteric sclerae ENMT external ear and nose normal, oropharynx normal Neck trachea midline, no thyromegaly Respiratory normal respiratory effort; no respiratory distress Auscultation: lungs clear to auscultation bilaterally Cardiovascular Rate/Rhythm: regular rate and regular rhythm Heart Sounds: no murmur Gastrointestinal (Abdomen) Inspection/Auscultation: abdomen normal to inspection; abdomen not distended Percussion/Palpation: abdomen soft Neurologic moves all extremities; no focal motor deficits Motor/Sensory: no tremor Psychiatric Orientation: alert Affect: + depressed affect Mood: + anxious mood Lymphatic no cervical or axillary lymphadenopathy Discharge Data Allergies Allergy/AdvReac Type Severity Reaction Status Date / Time Penicillins AdvReac Mild TIRED Verified 03/06/19 12:56 hydralazine AdvReac Vomiting Verified 03/06/19 12:56 Consultations 03/06/19 20:21 ED Decision to Admit Stat 03/06/19 22:06 Consult Case Management - Discharge Planning Routine 03/13/19 13:55 Consult Case Management - Discharge Planning Routine Ordered Studies 03/13/19 10:38 CT head/brain wo con Routine Hospital Course (1) Alcohol intoxication: Has long history of alcoholism with recurrent admission with withdrawal/delirium tremens/intoxication Has been feeling generally weak and complains to have more pain in the left hip Denies any palpitation Tremors of the hands are limited Has been on alcohol withdrawal protocol Clinically much better today but remains extremely weak and lethargic Hemodynamically stable We will ask for PT and OT evaluation Denies any new symptoms and no symptoms of withdrawal Remains stable but generally weak and lethargic Will ask for PT OT and OT reevaluation Like to be discharged this afternoon following PT and OT evaluation Has been getting PT and OT and is doing pretty good with it Headache Bifrontal without any associated symptoms CT scan of the head has been negative We will continue with Ultram Discharge the patient (2) Alcohol abuse: History of alcoholism Failed outpatient rehab Will not be going to inpatient rehab and social service has been working on the He wants to go home Advised to quit drinking (3) Acute pain of left hip: Has chronic pain in the left hip Complains of more pain Avoiding narcotics Pain seems to be controlled-does not have any acute arthritis involving the left hip (4) Esophageal stenosis: has had procedures for further Has been tolerating diet DVT prophylaxis We will start subcu heparin CODE STATUS Full PT and OT evaluation Likely to need placement and/or inpatient alcohol rehab No facility is going to accept him as an inpatient Like to go home with home health after repeat PT and OT evaluation Likely be discharged this afternoon following PT and OT evaluation Will discharge home this afternoon Total Time Total Time Spent Total Time Spent (In Minutes): 35 minutes Total Time Includes: Examination of the Patient, Discharge Planning and Medication Reconciliation Discharge Plan Discharge Items Patient Disposition: Home - Self-Care Reason For Visit: ALCOHOL INTOXICATION,HIP PAIN Discharge Diagnosis: Ambulatory dysfunction , alcohol abuse with recurrent admissions for withdrawal and/or intoxication Condition: Good Discharge Goals: Decrease discomfort, Improve function and Increase independence Activity: Resume your previous activity Non-emergency contact: Primary Care Provider Call non-emergency contact if: you have any medication questions and your symptoms worsen Follow-up/Referrals: PCP,NO [Primary Care Provider] - (He does not have any PCP. He does not want to have anyone right now. He will come to emergency room if he needs to see DrCrys) Diet: Regular Diet Texture: Dental soft (bite-sized) Addtl Provider Instructions: Please take extra precaution to avoid falls. Advised to avoid any alcohol or alcohol products. Offered PCP from [employer] but the patient refused. Prescriptions: New clonidine HCl 0.1 mg Tablet 0.2 mg PO BID 30 Days Qty: 120 RF: 0 thiamine HCl (vitamin B1) [Vitamin B-1] 100 mg Tablet 100 mg PO QAM 30 Days Qty: 30 RF: 0 tramadol 50 mg Tablet 50 mg PO Q4H PRN (Reason: pain) 5 Days Qty: 20 RF: 0 Certavite-Antioxidant 18-400 mg-mcg Tablet 1 tab PO QAM 30 Days Qty: 30 RF: 0 folic acid 1 mg tablet 1 mg PO DAILY Qty: 30 RF: 0 No Action No Known Home Medications RF: 0 Stand-Alone Forms: [facility] Discharge Orders: Discharge Order (Routine); Ordered 03/13/19 Ordered By: Wolf Fleming Admission Data Admit Date/Time: 03/06/19 21:10 Attending Provider: Wolf Fleming Admit Provider: Marcus Dalton Primary Care Provider: PCP,NO Other Providers: Marcus Dalton Service: Telemetry Medical Other Interventions: Discharge Summary Assessment (RN) Last Done: 03/13/19 15:11 DC Date/Time DO NOT enter until pt leaves facility: 03/13/19 15:56
== END 2019-03-13 15:56 | disposition home or self-care (01) | DRG 897 ==
LOC: ED 11:42 → 2N 21:10

== ENCOUNTER 2019-03-24 20:28 | Inpatient (IN) ==
[2019-03-24] MEDS ORDERED: chlordiazePOXIDE HCl 25 MG CAP PO ONE (20:58)
[2019-03-24 21:52] LABS: Basophils # (auto) 0.05 K/uL (0-0.2); Basophils % (auto) 0.6 %; Hemoglobin 12.7 g/dL (14.0-18.0); Immature Granulocytes # (auto) 0.03 K/uL (0.00-0.02); Immature Granulocytes % (auto) 0.3 %; Lymphocytes # (auto) 0.72 K/uL (1.2-3.4); Lymphocytes % (auto) 8.2 %; Mean Corpuscular Hemoglobin 28.6 pg (25-34); Mean Corpuscular Hgb Conc 34.3 g/dL (32-36); Mean Corpuscular Volume 83.3 fL (80-100); Mean Platelet Volume 8.4 fL (7.4-10.4); Monocytes # (auto) 1.49 K/uL (0.11-0.59); Monocytes % (auto) 16.9 %; Neutrophils # (auto) 6.52 K/uL (1.4-6.5); Platelet Count 310 K/uL (130-400); RDW Coefficient of Variation 16.9 % (11.5-14.5); Red Blood Count 4.44 M/uL (4.7-6.1); White Blood Count 8.81 K/uL (4.8-10.8)
[2019-03-24 22:13] LABS: Albumin Level 3.9 gm/dl (3.4-5.0); BUN Creatinine Ratio 14.1 (10-20); Calcium 9.3 mg/dl (8.5-10.1); Creatinine Clr Calc Pharmacy 90.8 ml/min; Est GFR (African American) 120.5; Potassium 3.8 mmol/L (3.5-5.1)
[2019-03-24 22:16] LABS: Albumin Globulin Ratio 0.9 (0.9-2); Globulin 4.5 gm/dl (2.5-4.0); Total Protein 8.4 gm/dl (6.4-8.2)
[2019-03-24 23:23] LABS: Appearance Urine Cloudy (Clear); Bacteria Urine Automated Negative (Negative); Bilirubin Urine Negative (Negative); Blood Urine Negative (Negative); Color Urine Yellow; Glucose Urine UA Negative (Negative); Ketones Urine 2+ (Negative); Leukocyte Esterase Urine Negative (Negative); Nitrite Urine Negative (Negative); RBC Urine Automated 0-4 /hpf (0-4); Specific Gravity Urine 1.015 (1.000-1.030); Urobilinogen Urine Negative (Negative); pH Urine 7.5 (4.5-7.5)
[2019-03-24 23:27] LABS: Protein Urine Negative (Negative)
--- NOTE | 2019-03-25 01:28 | Emergency Department Note ---
Entered by Danielle Shanks acting as a scribe for History of Present Illness General Chief complaint: Weakness Stated complaint: unsteady on feet Source: patient Mode of arrival: EMS History of Present Illness Provider complaint: Weakness Onset (ago): hour(s) 1 Location: hip Relieved By: + none Exacerbated By: + movement Associated symptoms: + other (Feels unsteady); no chest pain and no shortness of breath The patient is a 53 year old male who presents to the Emergency Room with complaints of weakness in his legs that began 1 hour prior to arrival. The patient states the pain is not relieved by anything and is exacerbated by movement. The patient was at a sheets buying alcohol when the staff there noticed that he was very unsteady on his feet. They went ahead and called EMS who brought him in. The patient states he feels unsteady but denies any chest pain, shortness of breath, or falls. The patient reports he consumes about 8-12 drinks a day and uses a walker to get around. The patient has a history of 2 broken hips and wants to stay overnight due to difficulty walking. The patient states that he has had no fever, vomiting, abdominal pain or urinary symptoms. Home Medications Home Medications Medication Instructions Recorded Confirmed Type No Known Home Medications 03/24/19 03/24/19 History Allergies Allergy/AdvReac Type Severity Reaction Status Date / Time Penicillins AdvReac Mild TIRED Verified 03/24/19 09:50 hydralazine AdvReac Vomiting Verified 03/24/19 09:50 Past Med/Surg History Medical History Esophageal stenosis DVT prophylaxis Esophageal tear Aortic root dilation Dementia Subgaleal hemorrhage Chronic hyponatremia History of esophageal stricture History of esophageal dilatation Hx of fracture of hip Hypertension (Chronic) Alcoholism (Chronic) Ambulatory dysfunction (Chronic) Dysphagia (Chronic) "h/o esophageal stricture s/p dilation in past" Frequent falls (Chronic) Alcohol abuse Tobacco abuse Surgical History History of esophagogastroduodenoscopy (EGD) History of hip surgery s/p fall and fx Family History Other Cancer Hypertension Social History Preferred Language: Japanese Communication Ability: Impaired Visual Impairment: No Limitations Hearing Ability: Hard of Hearing Supreme Court Justice Required: No Beliefs That Will Affect Care: None marital status: Single Current Living Situation: Alone and Homeless Current Living Situation Comment: [facility] Feels Safe at Home: Yes Smoking Status: Never smoker Tobacco Type: cigarettes ; Second Hand Exposure: No ; Hx Alcohol Use: Yes Alcohol type: beer Alcohol Intake Frequency Comment: 7-10 beers a day, uncertain which kind of beer Hx Substance Use: No Review of Systems See HPI for pertinent positives & negatives. and A total of 10 systems reviewed and were otherwise negative Physical Exam Vital Signs Vital Signs - 24 hr 03/24/19 20:36 03/24/19 20:47 03/24/19 21:09 Temperature 37.3 C Temperature Source Oral Sepsis Recent Fever Within 48 Hours No Sepsis Action Taken by Nursing No Action Required Pulse Rate 98 H 100 H 99 H Pulse Rate [Right Finger] Pulse Rate from SpO2 Sensor 97 H 99 H Pulse Rhythm Regular Pulse Rhythm [Right Finger] Pulse Strength Normal Respiratory Rate 15 24 21 Respiratory Effort / Characteristics Non-Labored Respiratory Depth Normal Respiratory Pattern Regular Blood Pressure 204/122 H 204/122 H Blood Pressure [Right Arm] Blood Pressure Mean 149 149 Blood Pressure Mean [Right Arm] Blood Pressure Position Lying Pulse Oximetry 95 96 97 Oxygen Delivery Method Room Air 03/24/19 21:30 03/24/19 21:35 03/24/19 22:00 Temperature Temperature Source Sepsis Recent Fever Within 48 Hours Sepsis Action Taken by Nursing Pulse Rate 92 H 94 H 98 H Pulse Rate [Right Finger] Pulse Rate from SpO2 Sensor 95 H 98 H Pulse Rhythm Pulse Rhythm [Right Finger] Pulse Strength Respiratory Rate 17 21 14 Respiratory Effort / Characteristics Respiratory Depth Respiratory Pattern Blood Pressure 184/107 H Blood Pressure [Right Arm] Blood Pressure Mean 132 Blood Pressure Mean [Right Arm] Blood Pressure Position Pulse Oximetry 97 97 Oxygen Delivery Method 03/24/19 22:30 03/24/19 22:55 03/25/19 00:11 Temperature Temperature Source Sepsis Recent Fever Within 48 Hours Sepsis Action Taken by Nursing Pulse Rate 119 H Pulse Rate [Right Finger] 106 H Pulse Rate from SpO2 Sensor 119 H Pulse Rhythm Pulse Rhythm [Right Finger] Regular Pulse Strength Respiratory Rate 14 19 Respiratory Effort / Characteristics Non-Labored Respiratory Depth Normal Respiratory Pattern Blood Pressure 156/109 H Blood Pressure [Right Arm] 166/100 H Blood Pressure Mean 124 Blood Pressure Mean [Right Arm] 122 Blood Pressure Position Pulse Oximetry 97 96 Oxygen Delivery Method 03/25/19 01:09 Temperature Temperature Source Sepsis Recent Fever Within 48 Hours Sepsis Action Taken by Nursing Pulse Rate Pulse Rate [Right Finger] 92 H Pulse Rate from SpO2 Sensor Pulse Rhythm Pulse Rhythm [Right Finger] Pulse Strength Respiratory Rate 19 Respiratory Effort / Characteristics Respiratory Depth Respiratory Pattern Blood Pressure Blood Pressure [Right Arm] 172/97 H Blood Pressure Mean Blood Pressure Mean [Right Arm] 122 Blood Pressure Position Pulse Oximetry 96 Oxygen Delivery Method Constitutional: Vital signs reviewed. Eyes: Pupils are equal round reactive to light. Conjunctiva are noninjected. ENT: Pharynx is clear without erythema or exudate. Mucous membranes are moist. Neck supple without meningeal signs. Respiratory: Clear to auscultation bilaterally. Breath sounds are equal bilaterally. Cardiovascular: Regular rate and rhythm. No rubs or gallops. GI: Soft, nondistended and nontender. Bowel sounds are present. Musculoskeletal: No peripheral edema. No lower extremity tenderness. Integumentary: No cyanosis. Neurological: The patient is awake and alert. No focal deficits. Slight tremors. No asterixis. Psychiatric: Normal affect. Course 2053: Past medical records reviewed. The patient was evaluated in room C02. A complete history and physical exam was performed. 2326: I reevaluated the patient and he is having difficulty walking. Administered Medications Discontinued Medications Chlordiazepoxide HCl (Librium) 50 mg PO NOW ONE Stop: 03/24/19 20:59 Last Admin: 03/24/19 21:25 Dose: 50 mg Documented by: [id number] Medical Decision Making Differential Diagnosis Differential diagnosis: Etiologies such as alcohol intoxication, dehydration, metabolic derangement, alcohol withdrawal, ambulatory dysfunction, as well as others were entertained. Medical Records Attestation: I reviewed the patient's medical records. The patient was seen here earlier today at 9am [place]. He has a known history of alcoholism. The patient had blood work today which was unremarkable. Alcohol level was 139 and he was discharged home. Home Medications Current Medication List: was personally reviewed by me Laboratory Data Attestation: I reviewed the patient's lab results. Result diagrams: 03/24/19 21:33 03/24/19 21:33 Lab Results 03/24/19 03/24/19 03/24/19 Range/Units 21:33 21:33 21:33 WBC (4.8-10.8) K/uL RBC (4.7-6.1) M/uL Hgb (14.0-18.0) g/dL Hct (42-52) % MCV (80-100) fL MCH (25-34) pg MCHC (32-36) g/dL RDW Std Deviation (36.4-46.3) fL RDW Coeff of Luis (11.5-14.5) % Plt Count (130-400) K/uL MPV (7.4-10.4) fL Immature Gran % (Auto) % Neut % (Auto) % Lymph % (Auto) % [place] % (Auto) % Eos % (Auto) % Baso % (Auto) % Immature Gran # (Auto) (0.00-0.02) K/uL Neut # (Auto) (1.4-6.5) K/uL Lymph # (Auto) (1.2-3.4) K/uL [place] # (Auto) (0.11-0.59) K/uL Eos # (Auto) (0-0.5) K/uL Baso # (Auto) (0-0.2) K/uL Sodium 131 L (136-145) mmol/L Potassium 3.8 (3.5-5.1) mmol/L Chloride 91 L (98-107) mmol/L Carbon Dioxide 25 (21-32) mmol/L Anion Gap 15.0 H (3-11) BUN 11 D (7-18) mg/dl Creatinine 0.75 (0.6-1.4) mg/dl Est Cr Clr Drug Dosing 90.8 ml/min Est GFR ( Amer) 120.5 Est GFR (Non-Af Amer) 104.0 BUN/Creatinine Ratio 14.1 (10-20) Glucose 93 (70-99) mg/dl Calcium 9.3 (8.5-10.1) mg/dl Total Bilirubin 1.0 D (0.2-1) mg/dl AST 49 H (15-37) U/L ALT 29 (12-78) U/L Alkaline Phosphatase 124 H (45-117) U/L Troponin I < 0.015 (0-0.045) ng/ml Total Protein 8.4 H (6.4-8.2) gm/dl Albumin 3.9 (3.4-5.0) gm/dl Globulin 4.5 H (2.5-4.0) gm/dl Albumin/Globulin Ratio 0.9 (0.9-2) Urine Color Urine Appearance (Clear) Urine pH (4.5-7.5) Ur Specific [place] (1.000-1.030) Urine Protein (Negative) Urine Glucose (UA) (Negative) Urine Ketones (Negative) Urine Blood (Negative) Urine Nitrite (Negative) Urine Bilirubin (Negative) Urine Urobilinogen (Negative) Ur Leukocyte Esterase (Negative) Urine WBC (Auto) (0-5) /hpf Urine RBC (Auto) (0-4) /hpf U Hyaline Cast (Auto) (0-5) /lpf U Epithel Cells (Auto) (0-5) /lpf Urine Bacteria (Auto) (Negative) Ethyl Alcohol mg/dL < 3.0 (0-3) mg/dl 03/24/19 03/24/19 Range/Units 21:33 23:06 WBC 8.81 (4.8-10.8) K/uL RBC 4.44 L (4.7-6.1) M/uL Hgb 12.7 L (14.0-18.0) g/dL Hct 37.0 L (42-52) % MCV 83.3 (80-100) fL MCH 28.6 (25-34) pg MCHC 34.3 (32-36) g/dL RDW Std Deviation 52.0 H (36.4-46.3) fL RDW Coeff of Luis 16.9 H (11.5-14.5) % Plt Count 310 (130-400) K/uL MPV 8.4 (7.4-10.4) fL Immature Gran % (Auto) 0.3 % Neut % (Auto) 74.0 % Lymph % (Auto) 8.2 % [place] % (Auto) 16.9 % Eos % (Auto) 0.0 % Baso % (Auto) 0.6 % Immature Gran # (Auto) 0.03 H (0.00-0.02) K/uL Neut # (Auto) 6.52 H (1.4-6.5) K/uL Lymph # (Auto) 0.72 L (1.2-3.4) K/uL [place] # (Auto) 1.49 H (0.11-0.59) K/uL Eos # (Auto) 0.00 (0-0.5) K/uL Baso # (Auto) 0.05 (0-0.2) K/uL Sodium (136-145) mmol/L Potassium (3.5-5.1) mmol/L Chloride (98-107) mmol/L Carbon Dioxide (21-32) mmol/L Anion Gap (3-11) BUN (7-18) mg/dl Creatinine (0.6-1.4) mg/dl Est Cr Clr Drug Dosing ml/min Est GFR ( Amer) Est GFR (Non-Af Amer) BUN/Creatinine Ratio (10-20) Glucose (70-99) mg/dl Calcium (8.5-10.1) mg/dl Total Bilirubin (0.2-1) mg/dl AST (15-37) U/L ALT (12-78) U/L Alkaline Phosphatase (45-117) U/L Troponin I (0-0.045) ng/ml Total Protein (6.4-8.2) gm/dl Albumin (3.4-5.0) gm/dl Globulin (2.5-4.0) gm/dl Albumin/Globulin Ratio (0.9-2) Urine Color Yellow Urine Appearance Cloudy A (Clear) Urine pH 7.5 (4.5-7.5) Ur Specific [place] 1.015 (1.000-1.030) Urine Protein Negative (Negative) Urine Glucose (UA) Negative (Negative) Urine Ketones 2+ H (Negative) Urine Blood Negative (Negative) Urine Nitrite Negative (Negative) Urine Bilirubin Negative (Negative) Urine Urobilinogen Negative (Negative) Ur Leukocyte Esterase Negative (Negative) Urine WBC (Auto) 1-5 (0-5) /hpf Urine RBC (Auto) 0-4 (0-4) /hpf U Hyaline Cast (Auto) 5-10 H (0-5) /lpf U Epithel Cells (Auto) 10-20 H (0-5) /lpf Urine Bacteria (Auto) Negative (Negative) Ethyl Alcohol mg/dL (0-3) mg/dl ECG Data Attestation: I personally reviewed and interpreted this ECG as follows: Indication: weakness Rate (beats per minute): 95 Rhythm: normal sinus Findings: + Q waves; no ST depression and no ST elevation Blood Pressure Blood Pressure Findings: Elevated blood pressure Blood Pressure Disposition: Referred to patients primary care provider MDM Narrative I did evaluate the patient as noted above. The patient states that he has had trouble walking today. He has not had any anything to drink in some time and he has an alcoholic. He has no other complaints. He states he wants to stay overn [facility] because of his inability to walk. He does have a history of hip replacement and gets around with a walker. IV access was established. The patient was placed on a continuous audit reviewer. I did order and personally review the patient's 12-lead EKG as described above. There is no evidence of acute ischemia. I did order a urine analysis. There is no infection. I did order and review the patient's blood work as noted in the electronic medical record. His white count is not elevated. Hemoglobin is 12.7. He has chronic hyponatremia. Troponin is negative. Alcohol level is 0. I did treat the patient with Librium 50 mg p.o. as he is tachycardic and hypertensive and show some signs of withdrawal. We did attempt to ambulate the patient. He was fairly unsteady on his feet with the walker. I did discuss hospitalization with the family service caseworker. She is familiar with the patient and recommended he go to outpatient rehab instead. I did discuss this plan with the patient who stated that he is agreeable to this and thinks he can manage to get around with his walker there. Currently we are attempting placement in a rehab facility. I did sign the patient out to Dr. Amanda. Impression & Plan Weakness, Chronic hyponatremia, Anemia, Alcohol dependence Discharge Plan Visit Data Chief Complaint: Weakness Stated Complaint: unsteady on feet ED Provider: Isidro Frye Discharge Problem: Weakness, Chronic hyponatremia, Anemia, Alcohol dependence Patient Disposition: Still a Patient Forms Stand Alone Forms: My [facility] Prescriptions Prescriptions: No Action No Known Home Medications RF: 0 Referrals Referrals: PCP,NO [Primary Care Provider] - The scribe's documentation has been prepared under my direction and personally reviewed by me in its entirety. I confirm that the note above accurately reflects all work, treatment, procedures, and medical decision making performed by me.
[2019-03-25] MEDS ORDERED: ACETAMINOPHEN 325 MG TAB PO STA (01:39)
--- NOTE | 2019-03-25 03:22 | Emergency Department Note ---
ED Visit Note ED Physician Sign Out Note: 53 yr old male well known to facility for alcoholism and frequent visits for ataxia/weakness. He was evaluated initially by Dr Frye who attempted to place in drug/etoh rehab and signed out to me pending placement. By 3 am it became clear patient will not have a bed until later today. Further more patient continuing to be persistently hypertensive. He is not exhibiting clear signs by exam of withdrawal. [facility] and will evaluate further given possible need for further work-up evaluation prior to placement. Jeremie Amanda MD : Anemia Qualifiers: Anemia type: unspecified type Qualified Code(s): D64.9 - Anemia, unspecified Alcohol dependence Qualifiers: Substance use status: in withdrawal Complication of substance-induced condition: uncomplicated Qualified Code(s): F10.230 - Alcohol dependence with withdrawal, uncomplicated
[2019-03-25] MEDS ORDERED: MULTI-VITAMIN INFUSION 10 ML, THIAMINE HCL 100 MG, FOLIC ACID 1 MG in SODIUM CHLORIDE 0... IV SCH (03:30)
[2019-03-25] MEDS ORDERED: ATIVAN IV ALCOHOL WITHDRAWL IV SCH (04:53)
[2019-03-25] MEDS ORDERED: SODIUM CHLORIDE 0.9% 1000ML 1,000 ML IV SCH (04:53)
[2019-03-25] MEDS ORDERED: ONDANSETRON INJ 2 MG/ML 2 ML VIAL IV PRN (04:53)
[2019-03-25] MEDS ORDERED: GABAPENTIN 1200MG ALCOHOL WITHDRAWAL LOAD PO STA (04:53)
[2019-03-25] MEDS ORDERED: LORazepam 2 MG/4 ML VIAL IV PRN (04:53)
[2019-03-25] MEDS ORDERED: LORazepam 1 MG/2 ML VIAL IV PRN (04:53)
[2019-03-25] MEDS ORDERED: LORazepam 3 MG/6 ML VIAL IV PRN (04:53)
[2019-03-25] MEDS ORDERED: NITROGLYCERIN SL 0.4 MG/TAB TAB SL PRN (04:53)
[2019-03-25] MEDS ORDERED: GABAPENTIN 600 MG TAB PO SCH (05:00)
[2019-03-25] MEDS: cloNIDine HCl 0.1 MG TAB PO PRN (05:20)
--- NOTE | 2019-03-25 06:36 | History and Physical Report ---
DATE OF ADMISSION: 03/25/2019 CHIEF COMPLAINT: Alcoholism and weakness, ambulatory dysfunction. HISTORY OF PRESENT ILLNESS: This is a 53-year-old male with past medical history significant for frequent admission to the hospital for alcoholism, alcohol withdrawal, chronic hip pain, history of hyponatremia, history of oesophageal status post history of dilatation, history of hypertension, frequent falls, tobacco abuse, history of aortic root dilatation, currently living in an appointment, was brought in because of ambulatory dysfunction. The patient says he is drinking 8-10 beers every day. He went to [facility] today to get alcohol and there he was found to be having balance issues and ambulatory dysfunction and they called the EMS and brought the patient here to the hospital. His alcohol level is less than 3, resting comfortably. Blood pressure somewhat running on the higher side. Received Tylenol for the headache and was started on a banana bag and dose of Librium. Initially, the plan was to send him to home with outpatient rehabilitation, but later decided to send him to the [facility] rehab and we were called to admit to hospital until the rehab placement. Patient ok to go to rehab. Headache is improving. He is seeing okay. He says he gets food on the wheels and he is eating okay and swallowing okay. Denies any cough, no fever, no chills, no chest pain, no shortness of breath, no fevers, no abdominal pain. He says his bowels are moving okay. No blood in the stools or black stools. No hematuria or dysuria. He says he is walking with a walker. He takes a bus to go to the town, but lately he is not going much because of his poor ambulatory status. He gets alcohol by himself. Lives alone. ALLERGIES: PENICILLIN, HYDRALAZINE. PAST MEDICAL HISTORY: As mentioned above. PAST SURGICAL HISTORY: Status post oesophageal dilatation, status post hip surgeries. MEDICATIONS: Currently not taking any medications. FAMILY HISTORY: Significant for cancer, hypertension. SOCIAL HISTORY: Former tobacco use and frequent admissions for alcoholism. He says he drinks about 8-10 beers a day. No history of substance abuse. REVIEW OF SYMPTOMS: As per HPI. Rest of review of systems negative. PHYSICAL EXAMINATION: GENERAL: The patient is alert and oriented, somewhat difficulty with dates. Not in acute distress. VITAL SIGNS: Temperature 37.3, pulse 92, respiratory rate 16, blood pressure 166/103, oxygen 96% on room air. HEENT: No pallor, no icterus. Pupils equal, round, reactive to light. NECK: No neck masses. Supple. CARDIOVASCULAR: S1, S2 heard, regular rate and rhythm, no murmur, no gallop. RESPIRATORY SYSTEM: Normal AP diameter. No accessory muscle use. No wheezing, no crackles. ABDOMEN: Soft, bowel sounds present, nontender. No distention. CENTRAL NERVOUS SYSTEM: Alert, awake and oriented, nonfocal. EXTREMITIES: Mild trace pedal edema, no erythema seen. LABORATORIES DATA: WBC 8.8, hemoglobin 12.7, hematocrit 37, platelets 310. Sodium 131, potassium 3.8, chloride 91, bicarbonate 25, BUN 11, creatinine 0.7, serum glucose 93, total bilirubin 1, AST 49, ALT 29, alkaline phosphatase 124. Troponin I less than 0.015. Urinalysis negative. Ethyl alcohol less than 3. EKG: Normal sinus rhythm, rate of 95, nonspecific, no acute ST changes seen. ASSESSMENT AND PLAN: This is a 53-year-old male who presents with history of chronic alcoholism, presents with ambulatory dysfunction. 1. Ambulatory dysfunction, patient was here recently in the hospital and discharged last week of february . At that time he did okay in PT/OT and sent home with home PT. We will get PT/OT evaluate the patient in the hospital and request placement. 2. Chronic alcoholism, multiple admissions for alcohol withdrawal. He says he drinks 8-10 beers a day. Last drink was yesterday and went to buy alcohol at [facility] when he was sent to the hospital because of his ambulatory dysfunction. Alcohol level is less than 3. We will place him on gabapentin protocol and IV Ativan p.r.n. Banana bag in the ER. We will place on p.o., thiamine and multivitamins with minerals daily. Plan for rehabilitation and the patient is agreeable to go. 3. History of chronic hyponatremia, used to be on salt tablet in the past Sodium 131 today.. Follow the labs in a.m. 4. History of oesophageal stenosis status post dilatation in the past. He says he is swallowing okay. We will place him on soft diet. 5. History of hypertension,NOt on medication. Currently will place him on clonidine p.r.n. Last admission, he was discharged on clonidine, but says he don't have any medication at home. 6. Deep venous thrombosis prophylaxis, sequential compression devices. DISPOSITION: Close monitoring in the med/surg tele. Level 1 full code. MTDD
[2019-03-25] MEDS: CEROVITE ADV FORMULA TAB PO SCH (11:13)
[2019-03-25] MEDS: GABAPENTIN 600 MG TAB PO SCH ×2 (12:26→17:50)
[2019-03-25] MEDS: ACETAMINOPHEN 325 MG TAB PO PRN ×2 (18:43→23:03)
--- NOTE | 2019-03-25 21:07 | Hospitalist Progress Note ---
Date of Service March 25, 2019 Assessment & Plan (1) Alcohol dependence: Alcohol withdrawal protocol with gabapentin, lorazepam, MVI, thiamine. Ongoing counseling / support. (2) Hyponatremia with decreased serum osmolality: Serum sodium 131. Follow. (3) Ambulatory dysfunction: PT / OT. (4) Hypertension: Systolic blood pressure as high as 194; diastolic blood pressure as high as 116. BP this morning 124/75. Follow. (5) DVT prophylaxis: No anticoagulants because of alcohol abuse. SCD's. Ambulate. (6) Discharge planning issues: Discharge disposition to be determined. Does not have a PCP. Subjective Recheck for alcoholism, ataxia, and other problems. Patient seen in their room around 1500. Ongoing weakness. No headaches. No visual changes. Mild tremor. No nausea or vomiting. No diarrhea, melena, hematochezia. Review of Systems: Constitutional- no fever. Cardiac- no chest pain. Pulmonary- no cough or SOB. GI- no nausea, vomiting, diarrhea, melena, hematochezia. - no urinary symptoms. Otherwise, as noted above. Physical Exam Constitutional: no acute distress ENMT: Ears: + hearing impairment Respiratory: no respiratory distress Auscultation: lungs clear to auscultation bilaterally Cardiovascular: Rate/Rhythm: regular rate and regular rhythm Heart Sounds: no gallop, no murmur and no cardiac rub Vessels: no JVD Extremities: no calf tenderness and no edema Gastrointestinal (Abdomen): normal bowel sounds, soft, nontender, no hepatosplenomegaly Skin: no rashes, warm and dry Neurologic: tremor Psychiatric: Orientation: alert and oriented x 3 Results & Data Vital Signs (Past 12 Hours) Vital Signs Temp Pulse Pulse Resp BP BP Pulse Ox 03/25/19 19:34 79 03/25/19 19:23 36.5 C 95 H 20 145/84 H 93 03/25/19 15:05 36.7 C 84 20 159/90 H 99 03/25/19 10:57 36.7 C 81 16 115/73 91 Laboratory Results Laboratory Results - last 24 hr 03/24/19 03/24/19 03/24/19 21:33 21:33 21:33 WBC RBC Hgb Hct MCV MCH MCHC RDW Std Deviation RDW Coeff of Luis Plt Count MPV Immature Gran % (Auto) Neut % (Auto) Lymph % (Auto) [place] % (Auto) Eos % (Auto) Baso % (Auto) Immature Gran # (Auto) Neut # (Auto) Lymph # (Auto) [place] # (Auto) Eos # (Auto) Baso # (Auto) Sodium 131 L Potassium 3.8 Chloride 91 L Carbon Dioxide 25 Anion Gap 15.0 H BUN 11 D Creatinine 0.75 Est Cr Clr Drug Dosing 90.8 Est GFR ( Amer) 120.5 Est GFR (Non-Af Amer) 104.0 BUN/Creatinine Ratio 14.1 Glucose 93 Calcium 9.3 Total Bilirubin 1.0 D AST 49 H ALT 29 Alkaline Phosphatase 124 H Troponin I < 0.015 Total Protein 8.4 H Albumin 3.9 Globulin 4.5 H Albumin/Globulin Ratio 0.9 Urine Color Urine Appearance Urine pH Ur Specific [place] Urine Protein Urine Glucose (UA) Urine Ketones Urine Blood Urine Nitrite Urine Bilirubin Urine Urobilinogen Ur Leukocyte Esterase Urine WBC (Auto) Urine RBC (Auto) U Hyaline Cast (Auto) U Epithel Cells (Auto) Urine Bacteria (Auto) Ethyl Alcohol mg/dL < 3.0 03/24/19 03/24/19 21:33 23:06 WBC 8.81 RBC 4.44 L Hgb 12.7 L Hct 37.0 L MCV 83.3 MCH 28.6 MCHC 34.3 RDW Std Deviation 52.0 H RDW Coeff of Luis 16.9 H Plt Count 310 MPV 8.4 Immature Gran % (Auto) 0.3 Neut % (Auto) 74.0 Lymph % (Auto) 8.2 [place] % (Auto) 16.9 Eos % (Auto) 0.0 Baso % (Auto) 0.6 Immature Gran # (Auto) 0.03 H Neut # (Auto) 6.52 H Lymph # (Auto) 0.72 L [place] # (Auto) 1.49 H Eos # (Auto) 0.00 Baso # (Auto) 0.05 Sodium Potassium Chloride Carbon Dioxide Anion Gap BUN Creatinine Est Cr Clr Drug Dosing Est GFR ( Amer) Est GFR (Non-Af Amer) BUN/Creatinine Ratio Glucose Calcium Total Bilirubin AST ALT Alkaline Phosphatase Troponin I Total Protein Albumin Globulin Albumin/Globulin Ratio Urine Color Yellow Urine Appearance Cloudy A Urine pH 7.5 Ur Specific [place] 1.015 Urine Protein Negative Urine Glucose (UA) Negative Urine Ketones 2+ H Urine Blood Negative Urine Nitrite Negative Urine Bilirubin Negative Urine Urobilinogen Negative Ur Leukocyte Esterase Negative Urine WBC (Auto) 1-5 Urine RBC (Auto) 0-4 U Hyaline Cast (Auto) 5-10 H U Epithel Cells (Auto) 10-20 H Urine Bacteria (Auto) Negative Ethyl Alcohol mg/dL (1) Alcohol dependence Complication of substance-induced condition: uncomplicated Substance use status: in withdrawal Qualified Code(s): F10.230 - Alcohol dependence with withdrawal, uncomplicated
[2019-03-26] MEDS: GABAPENTIN 600 MG TAB PO SCH ×3 (02:13→17:58)
[2019-03-26 06:21] LABS: BUN Creatinine Ratio 16.1 (10-20); Blood Urea Nitrogen 7 mg/dl (7-18); Calcium 8.1 mg/dl (8.5-10.1); Carbon Dioxide 27 mmol/L (21-32); Chloride 93 mmol/L (98-107); Creatinine Clr Calc Pharmacy 166.1 ml/min; Est GFR (African American) > 150.0; Est GFR (Non-African American) 133.3; Glucose 85 mg/dl (70-99); Magnesium 1.6 mg/dl (1.8-2.4); Potassium 2.8 mmol/L (3.5-5.1); Sodium 129 mmol/L (136-145)
[2019-03-26] MEDS ORDERED: POTASSIUM CHLORIDE 20 MEQ TABCR PO ONE (07:14)
[2019-03-26] MEDS: MAGNESIUM OXIDE 400 MG TAB PO SCH ×3 (08:03→19:18)
[2019-03-26] MEDS: CEROVITE ADV FORMULA TAB PO SCH (08:03)
[2019-03-26] MEDS: THIAMINE HCL 100 MG TAB PO SCH (08:03)
[2019-03-26] MEDS: cloNIDine HCl 0.1 MG TAB PO PRN (08:24)
[2019-03-26] MEDS: ACETAMINOPHEN 325 MG TAB PO PRN ×3 (15:10→23:41)
--- NOTE | 2019-03-26 21:58 | Hospitalist Progress Note ---
Date of Service March 26, 2019 Assessment & Plan (1) Alcohol dependence: Alcohol withdrawal protocol with gabapentin, lorazepam, MVI, thiamine. Ongoing counseling / support. (2) Hyponatremia with decreased serum osmolality: Serum sodium 129. ? SIADH. Check urine Na and Osm. Follow. (3) Hypokalemia: Serum K 2.8. Replace. Follow. (4) Hypomagnesemia: Serum Mg 1.6. Replace. Follow. (5) Ambulatory dysfunction: Chronic problem. Evaluated in past. 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 Fall precautions. PT / OT. (6) Hypertension: Systolic blood pressure as high as 194; diastolic blood pressure as high as 116. BP this morning 124/75. Follow. (7) DVT prophylaxis: No anticoagulants because of alcohol abuse. SCD's. Ambulate. (8) Discharge planning issues: Discharge disposition to be determined. Does not have a PCP. Subjective Recheck for alcoholism, ataxia, and other problems. Patient seen in his room this afternoon. Ongoing weakness and difficulty ambulating. No headaches. No visual changes. Mild tremor. No nausea or vomiting. No diarrhea, melena, hematochezia. Review of Systems: Constitutional- no fever. Cardiac- no chest pain. Pulmonary- no cough or SOB. GI- no nausea, vomiting, diarrhea, melena, hematochezia. - no urinary symptoms. Otherwise, as noted above. Physical Exam Constitutional: no acute distress ENMT: Ears: + hearing impairment Respiratory: no respiratory distress Auscultation: lungs clear to auscultation bilaterally Cardiovascular: Rate/Rhythm: regular rate and regular rhythm Heart Sounds: no gallop, no murmur and no cardiac rub Vessels: no JVD Extremities: no calf tenderness and no edema Gastrointestinal (Abdomen): normal bowel sounds, soft, nontender, no hepatosplenomegaly Skin: no rashes, warm and dry Psychiatric: Orientation: alert and oriented x 3 Results & Data Vital Signs (Past 12 Hours) VS @ 0744: 36.5, 71, 18, 138/90 Laboratory Results Laboratory Results - last 24 hr 03/26/19 03/26/19 03/26/19 05:20 11:15 11:15 Sodium 129 L Potassium 2.8 L D Chloride 93 L Carbon Dioxide 27 Anion Gap 9.0 BUN 7 Creatinine 0.41 L D Est Cr Clr Drug Dosing 166.1 Est GFR ( Amer) > 150.0 Est GFR (Non-Af Amer) 133.3 BUN/Creatinine Ratio 16.1 Glucose 85 Calcium 8.1 L Magnesium 1.6 L Urine Osmolality 280 L Ur Random Sodium 38 03/26/19 17:14 Sodium Potassium 3.5 D Chloride Carbon Dioxide Anion Gap BUN Creatinine Est Cr Clr Drug Dosing Est GFR ( Amer) Est GFR (Non-Af Amer) BUN/Creatinine Ratio Glucose Calcium Magnesium Urine Osmolality Ur Random Sodium (1) Alcohol dependence Complication of substance-induced condition: uncomplicated Substance use status: in withdrawal Qualified Code(s): F10.230 - Alcohol dependence with withdrawal, uncomplicated
[2019-03-27] MEDS: ACETAMINOPHEN 325 MG TAB PO PRN ×4 (03:48→22:42)
[2019-03-27] MEDS: GABAPENTIN 600 MG TAB PO SCH ×2 (06:02→17:43)
[2019-03-27 06:04] LABS: BUN Creatinine Ratio 10.7 (10-20); Calcium 8.2 mg/dl (8.5-10.1); Creatinine Clr Calc Pharmacy 113.6 ml/min; Est GFR (African American) 136.9; Est GFR (Non-African American) 118.1; Magnesium 1.6 mg/dl (1.8-2.4); Potassium 3.2 mmol/L (3.5-5.1)
[2019-03-27] MEDS: POTASSIUM CHLORIDE 20 MEQ TABCR PO SCH ×2 (07:36→13:29)
[2019-03-27] MEDS: MAGNESIUM OXIDE 400 MG TAB PO SCH ×3 (07:37→21:23)
[2019-03-27] MEDS: CEROVITE ADV FORMULA TAB PO SCH (07:37)
[2019-03-27] MEDS: THIAMINE HCL 100 MG TAB PO SCH (07:37)
[2019-03-27] MEDS ORDERED: MAGNESIUM OXIDE 400 MG TAB PO SCH (13:45)
[2019-03-27] MEDS ORDERED: POTASSIUM CHLORIDE 10 MEQ TABCR PO ONE (14:00)
[2019-03-27 14:29] LABS: BUN Creatinine Ratio 17.9 (10-20); Calcium 8.8 mg/dl (8.5-10.1); Creatinine Clr Calc Pharmacy 130.1 ml/min; Est GFR (African American) 144.8; Est GFR (Non-African American) 124.9; Potassium 3.7 mmol/L (3.5-5.1)
[2019-03-27] MEDS ORDERED: POTASSIUM CHLORIDE 20 MEQ/15 ML UDC PO ONE (14:30)
--- NOTE | 2019-03-27 17:05 | Nephrology Consultation ---
Date of Consultation March 27, 2019 Assessment & Plan (1) Chronic hyponatremia: present on admission but worsened w as admission progresses to 127on 03/27, day of consult; urine studies consistent w/ euvolemic hyponatremia , possibly from low solute diet -maintain eukalemia -ordered serum osms TSH for am -ordered FR 1.5 L and milk, protein shakes don't count toward fr Present on Admission?: Yes (2) Hypomagnesemia: check daily ; on supplements tid and tolerating Present on Admission?: Yes (3) Hypokalemia: -monitor daily; maintain at about 4 while managing sodium Present on Admission?: Yes History of Present Illness Reason for Consultation: hyponatremia Requesting Physician: Dr Ratliff Attending Physician: Romario Ratliff MD History of Present Illness 53 y/o M admitted 03/25 for ambulatory dysfunction whom I'm asked to see for chronic hyponatremia. PMH includes EtOH (endorsed 8-10 beers daily on admissoin), active tobacco abuse, chronic hyponatremia, aortic root dilatation, ambulatory dysfunction w/ frequent falls s/p BL hip fractures, esophageal strictures s/p dilation. Sodium was 134 on presentation and has steadily trended down since presentation to 127 today; mild hypokalemia. not on FR; no diuretics; getting ativan for etoh w/ drawal. eating chopped meals drinking a lot of clear soda. Allergies Allergy/AdvReac Type Severity Reaction Status Date / Time Penicillins AdvReac Mild TIRED Verified 03/24/19 09:50 hydralazine AdvReac Vomiting Verified 03/24/19 09:50 Home Medications Home Medications Medication Instructions Recorded Confirmed Type No Known Home Medications 03/24/19 03/24/19 History Patient History Medical History Esophageal stenosis DVT prophylaxis Esophageal tear Aortic root dilation Dementia Subgaleal hemorrhage Chronic hyponatremia History of esophageal stricture History of esophageal dilatation Hx of fracture of hip Hypertension (Chronic) Alcoholism (Chronic) Ambulatory dysfunction (Chronic) Dysphagia (Chronic) "h/o esophageal stricture s/p dilation in past" Frequent falls (Chronic) Alcohol abuse Tobacco abuse Surgical History History of esophagogastroduodenoscopy (EGD) History of hip surgery s/p fall and fx Family History Other Cancer Hypertension Social History Preferred Language: Danish Communication Ability: Effective Visual Impairment: No Limitations Hearing Ability: Hard of Hearing Hydraulic And Plumbing Installer Required: No Beliefs That Will Affect Care: None marital status: Single Current Living Situation: Alone Current Living Situation Comment: [employer] Feels Safe at Home: Yes Safety Concerns: Feels Safe At This Time Smoking Status: Never smoker Tobacco Type: cigarettes ; Second Hand Exposure: No ; Hx Alcohol Use: Yes Alcohol type: beer Alcohol Intake Frequency Comment: 7-10 beers a day, uncertain which kind of beer Hx Substance Use: No Review of Systems Review of Systems: Other (ROS limited by pt [place]) Constitutional: + fatigue (polysomnia) Ear, Nose, Mouth, Throat: no dry mouth Respiratory: no cough and no dyspnea Cardiovascular: no chest pain, no dyspnea on exertion and no edema Gastrointestinal: no abdominal pain, no nausea and no change in bowel habits Genitourinary: no problem reported (denies new/worrisome voiding habits) Musculoskeletal: + joint pain (c/o one hip w/ remote fracture/repair hurting more today than other w/ repair earlier this year) Integumentary: no rash and no non-healing lesions Physical Exam Constitutional: well developed, + frail appearing, + disheveled and cooperative [place] on RA alert interactive Eyes: EOM intact bilaterally ENMT: Ears: no external ear abnormality Nose: no external nose abnormality Mouth: + dry oral mucous membranes Neck: no nuchal rigidity Respiratory: normal respiratory effort Auscultation: + diminished lung sounds Cardiovascular: RRR, no murmur, no edema Gastrointestinal (Abdomen): Inspection/Auscultation: normal bowel sounds Percussion/Palpation: abdomen soft; abdomen nontender Musculoskeletal: Extremities: strength 5/5 throughout Skin: no rashes, warm and dry Neurologic: cortez, fluent speech, no tremor, [place] Psychiatric: Orientation: alert and oriented x 3 Eye Contact: + fair eye contact Results & Data Vital Signs (Past 12 Hours) Vital Signs Temp Pulse Pulse Resp BP Pulse Ox 03/27/19 15:00 87 03/27/19 11:13 36.9 C 79 18 126/81 95 03/27/19 08:00 80 03/27/19 07:27 36.8 C 67 18 144/82 H 96 Laboratory Results 03/24/19 21:33 03/27/19 13:57
--- NOTE | 2019-03-27 19:00 | Hospitalist Progress Note ---
Date of Service March 27, 2019 Assessment & Plan (1) Alcohol dependence: No signs of active withdrawal at this time Continue gabapentin protocol, as needed lorazepam Ongoing counseling / support. (2) Hyponatremia with decreased serum osmolality: Serum sodium 129. Today 127 Urine sodium and osmolality pointing towards possible SIADH We will consult nephrology service (3) Hypokalemia: Replaced, resolved (4) Hypomagnesemia: Serum Mg 1.6. Continue magnesium oxide replacement (5) Ambulatory dysfunction: Chronic problem. 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 Continue PT/OT (6) Hypertension: Systolic blood pressure as high as 194; diastolic blood pressure as high as 116. Stable today, continue to monitor (7) DVT prophylaxis: No anticoagulants because of alcohol abuse. SCD's. Ambulate. (8) Discharge planning issues: Discharge disposition to be determined. Does not have a PCP. Subjective Follow-up for alcohol withdrawal Seen resting in bed, watching TV, comfortable, nondistressed Denies tremors, anxiety, hallucinations, sweats Reports he feels off balance when ambulating No focal neurologic symptoms No other symptoms Review of Systems Review of Systems: All systems reviewed & are unremarkable except as noted in HPI & below Physical Exam Physical Exam: General- oriented x 3, not in distress, speaks in sentences with no effort or accessory muscle use Eyes- anicteric Neck- no JVD Lungs- clear breath sounds bilaterally, no rales/wheezes Heart- normal rate, regular rhythm; no murmurs Abdomen- normal bowel sounds, nondistended, soft, nontender Extremities- no pretibial edema, no calf tenderness Neuro- alert, oriented x 3; no gross focal neurologic deficits Skin- warm & dry Results & Data Vital Signs (Past 12 Hours) Vital Signs Temp Pulse Pulse Resp BP Pulse Ox 03/27/19 15:00 87 03/27/19 11:13 36.9 C 79 18 126/81 95 03/27/19 08:00 80 03/27/19 07:27 36.8 C 67 18 144/82 H 96 Laboratory Results Laboratory Results - last 24 hr 03/27/19 03/27/19 05:11 13:57 Sodium 126 L 127 L Potassium 3.2 L 3.7 D Chloride 89 L 94 L Carbon Dioxide 29 24 Anion Gap 8.0 9.0 BUN 6 L 9 Creatinine 0.55 L 0.48 L Est Cr Clr Drug Dosing 113.6 130.1 Est GFR ( Amer) 136.9 144.8 Est GFR (Non-Af Amer) 118.1 124.9 BUN/Creatinine Ratio 10.7 17.9 Glucose 83 99 Calcium 8.2 L 8.8 Magnesium 1.6 L (1) Alcohol dependence Complication of substance-induced condition: uncomplicated Substance use status: in withdrawal Qualified Code(s): F10.230 - Alcohol dependence with withdrawal, uncomplicated
[2019-03-27] MEDS: cloNIDine HCl 0.1 MG TAB PO PRN (23:23)
[2019-03-28 07:22] LABS: BUN Creatinine Ratio 13.3 (10-20); Blood Urea Nitrogen 5 mg/dl (7-18); Calcium 8.8 mg/dl (8.5-10.1); Carbon Dioxide 25 mmol/L (21-32); Chloride 97 mmol/L (98-107); Creatinine Clr Calc Pharmacy 152.4 ml/min; Est GFR (African American) > 150.0; Est GFR (Non-African American) 133.3; Glucose 91 mg/dl (70-99); Magnesium 1.8 mg/dl (1.8-2.4); Potassium 3.5 mmol/L (3.5-5.1); Sodium 129 mmol/L (136-145)
[2019-03-28 07:23] LABS: Phosphorus 3.5 mg/dl (2.5-4.9)
[2019-03-28] MEDS: CEROVITE ADV FORMULA TAB PO SCH (08:02)
[2019-03-28] MEDS: THIAMINE HCL 100 MG TAB PO SCH (08:03)
[2019-03-28] MEDS: MAGNESIUM OXIDE 400 MG TAB PO SCH ×3 (08:03→21:13)
[2019-03-28] MEDS: POTASSIUM CHLORIDE 20 MEQ TABCR PO SCH ×2 (09:20→21:13)
[2019-03-28] MEDS: ACETAMINOPHEN 325 MG TAB PO PRN ×3 (10:00→21:11)
--- NOTE | 2019-03-28 12:25 | Hospitalist Progress Note ---
Date of Service March 28, 2019 Assessment & Plan (1) Alcohol dependence: No signs of active withdrawal today Continue gabapentin protocol-last dose today, as needed lorazepam Ongoing counseling / support. (2) Hyponatremia with decreased serum osmolality: Serum sodium 127 yesterday, nephrology service consulted, fluid restriction ordered Urine sodium and osmolality pointing towards possible SIADH Sodium improved to 129 today, continue to monitor (3) Hypokalemia: Replaced, resolved (4) Hypomagnesemia: Serum Mg 1.6. Continue magnesium oxide replacement (5) Ambulatory dysfunction: Chronic problem. 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 Continue PT/OT (6) Hypertension: Systolic blood pressure as high as 194; diastolic blood pressure as high as 116. Elevated this morning asymptomatic, improved now, continue to monitor (7) DVT prophylaxis: No anticoagulants because of alcohol abuse. SCD's. Ambulate. (8) Discharge planning issues: Discharge disposition to be determined. Does not have a PCP. Subjective Follow-up for alcohol withdrawal, hyponatremia Seen resting in bed, watching TV, comfortable Reports weakness today, no tremors, anxiety, hallucinations, sweating Feels off balance when ambulating, but seems to be improving Denies chest pain, shortness of breath, palpitations, dizziness, headache No other symptoms Review of Systems Review of Systems: All systems reviewed & are unremarkable except as noted in HPI & below Physical Exam Physical Exam: General- oriented x 3, not in distress, speaks in sentences with no effort or accessory muscle use Eyes- anicteric Neck- no JVD Lungs- clear BS bilaterally Heart- normal rate, regular rhythm; no murmurs Abdomen- normal bowel sounds, nondistended, soft, nontender Extremities-no tremors, no pretibial edema, no calf tenderness Neuro- alert, oriented x 3; no gross focal neurologic deficits Skin- warm & dry Results & Data Vital Signs (Past 12 Hours) Vital Signs Temp Pulse Resp BP BP Pulse Ox 03/28/19 11:21 36.7 C 83 18 124/84 95 03/28/19 07:19 36.8 C 64 18 161/92 H 95 03/28/19 05:04 36.7 C 65 18 134/87 97 03/28/19 00:25 73 146/88 H Laboratory Results Laboratory Results - last 24 hr 03/27/19 03/28/19 03/28/19 13:57 06:14 06:14 Sodium 127 L 129 L Potassium 3.7 D 3.5 Chloride 94 L 97 L Carbon Dioxide 24 25 Anion Gap 9.0 8.0 BUN 9 5 L Creatinine 0.48 L 0.41 L Est Cr Clr Drug Dosing 130.1 152.4 Est GFR ( Amer) 144.8 > 150.0 Est GFR (Non-Af Amer) 124.9 133.3 BUN/Creatinine Ratio 17.9 13.3 Glucose 99 91 Osmolality 263 L Calcium 8.8 8.8 Phosphorus 3.5 Magnesium 1.8 Beta-Hydroxybutyric Acd 3.20 H (1) Alcohol dependence Complication of substance-induced condition: uncomplicated Substance use status: in withdrawal Qualified Code(s): F10.230 - Alcohol dependence with withdrawal, uncomplicated
--- NOTE | 2019-03-28 15:53 | Nephrology Progress Note ---
Date of Service March 28, 2019 Assessment & Plan (1) Chronic hyponatremia: present on admission but worsened as admission progresses to 127 on 03/27, day of consult; urine studies consistent w/ euvolemic hyponatremia , possibly from low solute diet. improved to 129 today -maintain eukalemia >> started him on 20 mEQ po bid K -need to be absolutely sure (?w/ welder help) that food provided him in form he can eat > some starvation ketoacidosis present -ordered TSH for am -cont FR 1.5 L and milk, protein shakes don't count toward fr (2) Hypomagnesemia: check daily ; on supplements tid and tolerating (3) Hypokalemia: -monitor daily; maintain at about 4 while managing sodium Subjective seen on rounds this am 0800; c/o poor sleep; dislikes FR but did not realize milk, prot shake not included; asks for beer. Review of Systems Review of Systems: All systems reviewed & are unremarkable except as noted in HPI & below Gastrointestinal: still w/ poor po intake including much of his breakfast Physical Exam Constitutional: well developed, + frail appearing, + disheveled and cooperative; no acute distress [place] Eyes: EOM intact bilaterally ENMT: Ears: no external ear abnormality Nose: no external nose abnormality Mouth: + dry oral mucous membranes Neck: no nuchal rigidity Respiratory: normal respiratory effort Auscultation: + diminished lung sounds Cardiovascular: RRR, no murmur, no edema Gastrointestinal (Abdomen): Inspection/Auscultation: normal bowel sounds Percussion/Palpation: abdomen soft; abdomen nontender Musculoskeletal: Extremities: strength 5/5 throughout Skin: no rashes, warm and dry Psychiatric: Orientation: alert and oriented x 3 Eye Contact: + fair eye contact Results & Data Vital Signs (Past 12 Hours) Vital Signs Temp Pulse Pulse Resp BP Pulse Ox 03/28/19 15:16 36.6 C 63 13 152/93 H 98 03/28/19 11:21 36.7 C 83 18 124/84 95 03/28/19 07:19 36.8 C 64 18 161/92 H 95 03/28/19 05:04 36.7 C 65 18 134/87 97 Laboratory Results 03/24/19 21:33 03/28/19 06:14
[2019-03-28] MEDS ORDERED: GABAPENTIN 600 MG TAB PO SCH (18:00)
[2019-03-29 06:24] LABS: BUN Creatinine Ratio 19.5 (10-20); Calcium 8.6 mg/dl (8.5-10.1); Creatinine Clr Calc Pharmacy 138.8 ml/min; Est GFR (African American) 148.7; Est GFR (Non-African American) 128.3
[2019-03-29 06:34] LABS: Thyroid Stimulating Hormone 2.1 uIu/ml (0.300-4.500)
[2019-03-29] MEDS: POTASSIUM CHLORIDE 20 MEQ TABCR PO SCH ×2 (07:58→20:10)
[2019-03-29] MEDS: CEROVITE ADV FORMULA TAB PO SCH (07:58)
[2019-03-29] MEDS: MAGNESIUM OXIDE 400 MG TAB PO SCH ×3 (07:59→20:10)
[2019-03-29] MEDS: THIAMINE HCL 100 MG TAB PO SCH (07:59)
[2019-03-29] MEDS ORDERED: AMLODIPINE BESYLATE 5 MG TAB PO ONE (12:30)
--- NOTE | 2019-03-29 13:22 | XRay Report ---
XR KUB/Abdomen 1 view CLINICAL HISTORY: nausea, r/o obstruction pain COMPARISON STUDY: 12/05/2018 FINDINGS: Nonobstructive bowel pattern. Several air-filled loops of small bowel suggesting minimal to mild nonobstructive ileus. Findings of bilateral hip pain procedures. IMPRESSION: Nonobstructive bowel pattern. Minimal ileus. The above report was generated using voice recognition software. It may contain grammatical, syntax or spelling errors. Electronically signed by: Keven Vann M.D. 03/29/2019 1:21 PM
[2019-03-29] MEDS ORDERED: BISACODYL 10 MG SUPP PR STA (15:11)
[2019-03-29] MEDS ORDERED: D5NSS + 20MEQ KCL 20 MEQ/1,000 ML BAG IV SCH (15:15)
--- NOTE | 2019-03-29 15:51 | Nephrology Progress Note ---
Date of Service March 29, 2019 Assessment & Plan (1) Chronic hyponatremia: present on admission but worsened as admission progresses to 127 on 03/27, day of consult; urine studies consistent w/ euvolemic hyponatremia , possibly from low solute diet. improved to 131 today w/ FR alone -maintain eukalemia -w/ N today and NPO on IVF -need to be absolutely sure (?w/ torch heater help) when taking po again that food provided him in form he can eat > some starvation ketoacidosis present -daily bmp > may need lasix to manage this if NPO on IVF -cont FR 1.5 L and milk, protein shakes don't count toward FR (2) Hypomagnesemia: check q48-72h ; on supplements tid and tolerating (3) Hypokalemia: -monitor daily; maintain at about 4 while managing sodium; on K 20 mEq po bid; now on K - rich fluids Subjective having N and abd XR concerning for early ileus > pt soon to be NPO; seen on rounds prior to XR and NPO status >> c/o FR, no sob, no uncontrolled pain, no edema, no voiding c/o or diarrhea Review of Systems Review of Systems: All systems reviewed & are unremarkable except as noted in HPI & below Physical Exam Constitutional: well developed, + frail appearing, + disheveled and cooperative; no acute distress on RA Eyes: EOM intact bilaterally ENMT: Ears: no external ear abnormality Nose: no external nose abnormality Mouth: + dry oral mucous membranes Neck: no nuchal rigidity Respiratory: normal respiratory effort Auscultation: + diminished lung sounds Cardiovascular: RRR, no murmur, no edema Gastrointestinal (Abdomen): Inspection/Auscultation: normal bowel sounds Percussion/Palpation: abdomen soft; abdomen nontender Musculoskeletal: Extremities: strength 5/5 throughout Skin: no rashes, warm and dry Neurologic: [place], fluent speech, no tremor Psychiatric: Orientation: alert and oriented x 3 Eye Contact: + fair eye contact Results & Data Vital Signs (Past 12 Hours) Vital Signs Temp Pulse Pulse Resp BP BP Pulse Ox 03/29/19 15:45 37.3 C 89 17 151/103 H 98 03/29/19 13:59 36.9 C 79 18 144/87 H 97 03/29/19 11:57 36.8 C 76 17 165/100 H 97 03/29/19 08:13 36.9 C 85 18 160/91 H 155/100 H 97 03/29/19 07:15 72 03/29/19 03:49 36.5 C 81 20 150/96 H 95 Laboratory Results Abnormal lab results 03/29/19 Range/Units 05:30 Sodium 131 L (136-145) mmol/L Creatinine 0.45 L (0.6-1.4) mg/dl
--- NOTE | 2019-03-29 16:07 | Gastrointestinal Consultation ---
Date of Consultation March 29, 2019 Assessment & Plan (1) Ileus: Pt is a 53 y/o male, currently admitted ambulatory dysfunction secondary to alcoholism. GI consulted for mild ileus noted on KUB which was ordered today for nausea. When I attempted to see pt, he was frustrated as to why he's not allowed to eat. Says he's hungry, cannot go another day without food. Denies any abd pain, n/v. He doesn't see a reason why GI service is seeing him. I spoke w hospitalist (Dr. Ratliff) about this and to re-eval pt. Recall GI as needed. History of Present Illness Attending Physician: Romario Ratliff MD Allergies Allergy/AdvReac Type Severity Reaction Status Date / Time Penicillins AdvReac Mild TIRED Verified 03/24/19 09:50 hydralazine AdvReac Vomiting Verified 03/24/19 09:50 Home Medications Home Medications Medication Instructions Recorded Confirmed Type No Known Home Medications 03/24/19 03/24/19 History Patient History Medical History Esophageal stenosis DVT prophylaxis Esophageal tear Aortic root dilation Dementia Subgaleal hemorrhage Chronic hyponatremia History of esophageal stricture History of esophageal dilatation Hx of fracture of hip Hypertension (Chronic) Alcoholism (Chronic) Ambulatory dysfunction (Chronic) Dysphagia (Chronic) "h/o esophageal stricture s/p dilation in past" Frequent falls (Chronic) Alcohol abuse Tobacco abuse Surgical History History of esophagogastroduodenoscopy (EGD) History of hip surgery s/p fall and fx Family History Other Cancer Hypertension Social History Preferred Language: Niuean Communication Ability: Effective Visual Impairment: No Limitations Hearing Ability: Hard of Hearing Col[place] Gluer Required: No Beliefs That Will Affect Care: None marital status: Single Current Living Situation: Alone Current Living Situation Comment: [employer] Feels Safe at Home: Yes Safety Concerns: Feels Safe At This Time Smoking Status: Never smoker Tobacco Type: cigarettes ; Second Hand Exposure: No ; Hx Alcohol Use: Yes Alcohol type: beer Alcohol Intake Frequency Comment: 7-10 beers a day, uncertain which kind of beer Hx Substance Use: No Results & Data Vital Signs (Past 12 Hours) Vital Signs Temp Pulse Pulse Resp BP BP Pulse Ox 03/29/19 15:45 37.3 C 89 17 151/103 H 98 03/29/19 13:59 36.9 C 79 18 144/87 H 97 03/29/19 11:57 36.8 C 76 17 165/100 H 97 03/29/19 08:13 36.9 C 85 18 160/91 H 155/100 H 97 03/29/19 07:15 72
--- NOTE | 2019-03-29 18:37 | Hospitalist Progress Note ---
Date of Service March 29, 2019 Assessment & Plan (1) Alcohol dependence: No signs of active withdrawal today Completed gabapentin protocol, continue as needed lorazepam Ongoing counseling / support. (2) Nausea: Questionable mild ileus Possible etiology is ongoing alcohol withdrawal Clear liquid diet for now, GI consulted patient declined evaluation We will continue to monitor closely (3) Hyponatremia with decreased serum osmolality: Serum sodium 127 yesterday, nephrology service consulted, fluid restriction ordered Urine sodium and osmolality pointing towards possible SIADH Sodium improved to 131 today, continue fluid restriction Monitor closely (4) Hypokalemia: Replaced, resolved (5) Hypomagnesemia: Serum Mg 1.6. Continue magnesium oxide replacement (6) Ambulatory dysfunction: Chronic problem. 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 Continue PT/OT (7) Hypertension: Blood pressure elevated today Amlodipine 5 mill grams p.o. started (8) DVT prophylaxis: No anticoagulants because of alcohol abuse. SCD's. Ambulate. (9) Discharge planning issues: Discharge disposition to be determined. Does not have a PCP. Subjective Follow-up for alcohol withdrawal, hyponatremia Around 1215, patient was seen resting in bed, appears weak Repeatedly stating he is nauseated, no appetite at all Denies abdominal pain, reports he has not had bowel movements for several days, also reporting he has no flatus Denies tremors, anxiety, hallucinations, sweating KUB ordered: Showing possible mild ileus N.p.o. ordered, GI consult ordered Around 4 PM, patient was very upset when being evaluated by GI service, adamantly requesting to eat Upon reevaluation, the patient is very upset, states that his nausea has resolved, that he ate breakfast and lunch and had no problems, also reporting he already had one bowel movement in the morning, and is passing flatus Explained findings on KUB, and the need to proceed because cautiously He is requesting regular diet but I strongly recommended clear liquid diet for now we will advance as tolerated based on evaluation He verbalized understanding, and is agreeable with the plan of care Review of Systems Review of Systems: All systems reviewed & are unremarkable except as noted in HPI & below Physical Exam Physical Exam: General- oriented x 3, not in distress, speaks in sentences with no effort or accessory muscle use Eyes- anicteric Neck- no JVD Lungs- clear breath sounds, no crackles, no wheezing bilaterally Heart- normal rate, regular rhythm; no murmurs Abdomen- normal bowel sounds, nondistended, soft, nontender Extremities- no pretibial edema, no calf tenderness Neuro- alert, oriented x 3; no gross focal neurologic deficits Skin- warm & dry Results & Data Vital Signs (Past 12 Hours) Vital Signs Temp Pulse Pulse Resp BP BP Pulse Ox 03/29/19 16:00 83 03/29/19 15:45 37.3 C 89 17 151/103 H 98 03/29/19 13:59 36.9 C 79 18 144/87 H 97 03/29/19 11:57 36.8 C 76 17 165/100 H 97 03/29/19 08:13 36.9 C 85 18 160/91 H 155/100 H 97 03/29/19 07:15 72 Laboratory Results Laboratory Results - last 24 hr 03/29/19 05:30 Sodium 131 L Potassium 4.0 Chloride 99 Carbon Dioxide 26 Anion Gap 6.0 BUN 9 Creatinine 0.45 L Est Cr Clr Drug Dosing 138.8 Est GFR ( Amer) 148.7 Est GFR (Non-Af Amer) 128.3 BUN/Creatinine Ratio 19.5 Glucose 90 Calcium 8.6 TSH 2.100 (1) Alcohol dependence Complication of substance-induced condition: uncomplicated Substance use status: in withdrawal Qualified Code(s): F10.230 - Alcohol dependence with withdrawal, uncomplicated
[2019-03-29] MEDS: ACETAMINOPHEN 325 MG TAB PO PRN (20:10)
[2019-03-30] MEDS: ACETAMINOPHEN 325 MG TAB PO PRN ×4 (04:14→23:09)
[2019-03-30] MEDS: POTASSIUM CHLORIDE 20 MEQ TABCR PO SCH ×2 (08:56→18:53)
[2019-03-30] MEDS: MAGNESIUM OXIDE 400 MG TAB PO SCH ×3 (08:56→18:54)
[2019-03-30] MEDS: CEROVITE ADV FORMULA TAB PO SCH (08:57)
[2019-03-30] MEDS: THIAMINE HCL 100 MG TAB PO SCH (08:57)
[2019-03-30] MEDS ORDERED: AMLODIPINE BESYLATE 5 MG TAB PO SCH (09:00)
[2019-03-30 09:47] LABS: BUN Creatinine Ratio 14.4 (10-20); Creatinine Clr Calc Pharmacy 116.7 ml/min; Est GFR (Non-African American) 115.6; Potassium 3.9 mmol/L (3.5-5.1)
--- NOTE | 2019-03-30 10:01 | Nephrology Progress Note ---
Date of Service March 30, 2019 Assessment & Plan (1) Chronic hyponatremia: present on admission but worsened as admission progresses to 127 on 03/27, day of consult; urine studies consistent w/ euvolemic hyponatremia , possibly from low solute diet. Sodium was low today at 128 likely in setting of hypotonic fluids given yesterday. -Fluid restriction of 1 L -need to be absolutely sure (?w/ marine extension agent help) when taking po again that food provided him in form he can eat > some starvation ketoacidosis present -daily bmp (2) Hypomagnesemia: check q48-72h ; on supplements tid and tolerating (3) Hypokalemia: -monitor daily; maintain at about 4 while managing sodium; on K 20 mEq po bid; now on K - rich fluids. 3.9 today Subjective Patient seen in follow-up for electrolyte imbalance. He feels better this morning eating and drinking well. He is eager to be discharged home. No vomiting or diarrhea. No shortness of breath. Review of Systems Review of Systems: All systems reviewed & are unremarkable except as noted in HPI & below Physical Exam Physical Exam: General exam: Appears comfortable, no acute distress HEENT: Pupils are equal and reactive to light Neck: No JVD, neck is supple trachea is midline Respiratory system: Clear breath sounds bilaterally. Gastrointestinal: Abdomen is soft, non distended, non tender, bowel sounds are present CVS: Regular rate and rhythm. No murmurs, rubs or gallops Musculoskeletal: No joint or muscle tenderness Extremities: Non tender, no edema, peripheral pulses are present Neuro: Oriented, no tremors, no focal neurological deficits Skin: No rashes Results & Data Vital Signs (Past 12 Hours) Vital Signs Temp Pulse Pulse Resp BP Pulse Ox Pulse Ox 03/30/19 07:22 36.8 C 74 20 161/95 H 96 03/30/19 04:27 36.7 C 76 20 151/92 H 95 03/30/19 04:00 95 03/30/19 00:12 37.4 C 80 20 153/98 H 99 03/30/19 00:10 74 Laboratory Results Laboratory Results - last 24 hr 03/30/19 09:01 Sodium 128 L Potassium 3.9 Chloride 94 L Carbon Dioxide 27 Anion Gap 6.0 BUN 8 Creatinine 0.58 L Est Cr Clr Drug Dosing 116.7 Est GFR ( Amer) 134.0 Est GFR (Non-Af Amer) 115.6 BUN/Creatinine Ratio 14.4 Glucose 117 H Calcium 9.0
--- NOTE | 2019-03-30 11:28 | Hospitalist Progress Note ---
Date of Service March 30, 2019 Assessment & Plan (1) Alcohol dependence: No signs of active withdrawal today Completed gabapentin protocol, continue as needed lorazepam Ongoing counseling / support. (2) Nausea: Questionable mild ileus Possible etiology is ongoing alcohol withdrawal Resolved, positive bowel movements Advance diet to soft, continue to monitor (3) Hyponatremia with decreased serum osmolality: Serum sodium 127 yesterday, nephrology service consulted, fluid restriction ordered Urine sodium and osmolality pointing towards possible SIADH No decreased again to 128 Discussed with nephrology service Recommend to further restrict fluid intake to 1 L/day, regular diet Repeat sodium tomorrow (4) Hypokalemia: Replaced, resolved (5) Hypomagnesemia: Serum Mg 1.6. Continue magnesium oxide replacement (6) Ambulatory dysfunction: Chronic problem. 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 Continue PT/OT (7) Hypertension: Blood pressure elevated today Increase amlodipine to 10 mg p.o. daily (8) DVT prophylaxis: No anticoagulants because of alcohol abuse. SCD's. Ambulate. (9) Discharge planning issues: Discharge disposition to be determined. Does not have a PCP. Subjective Follow-up for alcohol withdrawal, hyponatremia Seen resting in bed, comfortable, not in distress Today patient denies nausea, abdominal pain, states he is tolerating clear liquids well Reports good bowel movement today Denies anxiety, tremors, hallucinations, sweating No other symptoms Review of Systems Review of Systems: All systems reviewed & are unremarkable except as noted in HPI & below Physical Exam Physical Exam: General- oriented x 3, not in distress, speaks in sentences with no effort or accessory muscle use Eyes- anicteric Neck- no JVD Lungs- clear BS, no crackles, no wheezing bilaterally Heart- normal rate, regular rhythm; no murmurs Abdomen- normal bowel sounds, distention, soft, no tenderness Extremities- no pretibial edema, no calf tenderness Neuro- alert, oriented x 3; no gross focal neurologic deficits Skin- warm & dry Results & Data Vital Signs (Past 12 Hours) Vital Signs Temp Pulse Pulse Resp BP Pulse Ox Pulse Ox 03/30/19 07:22 36.8 C 74 20 161/95 H 96 03/30/19 04:27 36.7 C 76 20 151/92 H 95 03/30/19 04:00 95 03/30/19 00:12 37.4 C 80 20 153/98 H 99 03/30/19 00:10 74 Laboratory Results Laboratory Results - last 24 hr 03/30/19 09:01 Sodium 128 L Potassium 3.9 Chloride 94 L Carbon Dioxide 27 Anion Gap 6.0 BUN 8 Creatinine 0.58 L Est Cr Clr Drug Dosing 116.7 Est GFR ( Amer) 134.0 Est GFR (Non-Af Amer) 115.6 BUN/Creatinine Ratio 14.4 Glucose 117 H Calcium 9.0 (1) Alcohol dependence Complication of substance-induced condition: uncomplicated Substance use status: in withdrawal Qualified Code(s): F10.230 - Alcohol dependence with withdrawal, uncomplicated
[2019-03-30] MEDS ORDERED: TRAMADOL HCL 50 MG TABLET PO STA (17:07)
[2019-03-30] MEDS ORDERED: AMLODIPINE BESYLATE 5 MG TAB PO ONE (18:00)
[2019-03-31 06:51] LABS: BUN Creatinine Ratio 17.6 (10-20); Calcium 8.9 mg/dl (8.5-10.1); Creatinine Clr Calc Pharmacy 143.6 ml/min; Est GFR (African American) 146.1; Potassium 4.1 mmol/L (3.5-5.1)
[2019-03-31] MEDS: AMLODIPINE BESYLATE 5 MG TAB PO SCH (08:21)
[2019-03-31] MEDS: THIAMINE HCL 100 MG TAB PO SCH (08:21)
[2019-03-31] MEDS: POTASSIUM CHLORIDE 20 MEQ TABCR PO SCH ×2 (08:22→19:30)
[2019-03-31] MEDS: MAGNESIUM OXIDE 400 MG TAB PO SCH ×3 (08:22→19:29)
[2019-03-31] MEDS: CEROVITE ADV FORMULA TAB PO SCH (08:22)
--- NOTE | 2019-03-31 16:25 | Nephrology Progress Note ---
Date of Service March 31, 2019 Assessment & Plan (1) Chronic hyponatremia: present on admission but worsened as admission progresses to 127 on 03/27, day of consult; urine studies consistent w/ euvolemic hyponatremia , possibly from low solute diet. Sodium was low today at 129. -Fluid restriction of 1 L -need to be absolutely sure (?w/ drop hammer pile driver operator help) when taking po again that food provided him in form he can eat > some starvation ketoacidosis present -daily bmp (2) Hypomagnesemia: Improved with magnesium supplements. Please monitor and replete as needed (3) Hypokalemia: -monitor daily; maintain at about 4 while managing sodium; on K 20 mEq po bid; now on K - rich fluids. Potassium of 4 today Subjective Patient seen in follow-up for hyponatremia. Sodium is slightly better at 129 today. He continues fluid restriction. He promises to reduce on alcohol on discharge. He would like to go home tomorrow. No shortness of breath or urinary symptoms. Review of Systems Review of Systems: All systems reviewed & are unremarkable except as noted in HPI & below Physical Exam Physical Exam: General exam: Appears comfortable, no acute distress HEENT: Pupils are equal and reactive to light Neck: No JVD, neck is supple trachea is midline Respiratory system: Clear breath sounds bilaterally. Gastrointestinal: Abdomen is soft, non distended, non tender, bowel sounds are present CVS: Regular rate and rhythm. No murmurs, rubs or gallops Musculoskeletal: No joint or muscle tenderness Extremities: Non tender, no edema, peripheral pulses are present Neuro: Oriented, no tremors, no focal neurological deficits Skin: No rashes Results & Data Vital Signs (Past 12 Hours) Vital Signs Temp Pulse Pulse Resp BP Pulse Ox 03/31/19 12:22 63 03/31/19 12:14 37.1 C 83 20 130/83 94 Laboratory Results Laboratory Results - last 24 hr 03/31/19 06:07 Sodium 129 L Potassium 4.1 Chloride 94 L Carbon Dioxide 26 Anion Gap 9.0 BUN 8 Creatinine 0.47 L Est Cr Clr Drug Dosing 143.6 Est GFR ( Amer) 146.1 Est GFR (Non-Af Amer) 126.0 BUN/Creatinine Ratio 17.6 Glucose 86 Calcium 8.9
--- NOTE | 2019-03-31 16:37 | Hospitalist Progress Note ---
Date of Service March 31, 2019 Assessment & Plan (1) Alcohol dependence: No signs of active withdrawal today Completed gabapentin protocol, continue as needed lorazepam Ongoing counseling / support. (2) Nausea: Questionable mild ileus Possible etiology is ongoing alcohol withdrawal Resolved, positive bowel movements Tolerating diet well, continue to monitor (3) Hyponatremia with decreased serum osmolality: Serum sodium 127 yesterday, nephrology service consulted, fluid restriction ordered Urine sodium and osmolality pointing towards possible SIADH Sodium 129, fluid restriction Repeat sodium tomorrow (4) Hypokalemia: Replaced, resolved (5) Hypomagnesemia: Serum Mg 1.6. Continue magnesium oxide replacement (6) Ambulatory dysfunction: Chronic problem. 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 Continue PT/OT (7) Hypertension: Blood pressure improved Continue amlodipine 10 mg p.o. daily (8) DVT prophylaxis: No anticoagulants because of alcohol abuse. SCD's. Ambulate. (9) Discharge planning issues: Discharge disposition to be determined. Does not have a PCP. Subjective ff up for hyponatremia, alcohol withdrawal Seen resting in bed, comfortable, not in distress Denies nausea, tolerating diet well No anxiety, tremors, hallucinations States he feels improved compared to yesterday No other symptoms Review of Systems Review of Systems: All systems reviewed & are unremarkable except as noted in HPI & below Physical Exam Physical Exam: General- oriented x 3, not in distress, speaks in sentences with no effort or accessory muscle use Eyes- anicteric Neck- no JVD Lungs- clear BS Bilaterally no rales/wheezes Heart- normal rate, regular rhythm; no murmurs Abdomen- normal bowel sounds, nondistended, soft, no tenderness Extremities- no pretibial edema, no calf tenderness Neuro- alert, oriented x 3; no gross focal neurologic deficits Skin- warm & dry Results & Data Vital Signs (Past 12 Hours) Vital Signs Temp Pulse Pulse Resp BP Pulse Ox 03/31/19 12:22 63 03/31/19 12:14 37.1 C 83 20 130/83 94 (1) Alcohol dependence Complication of substance-induced condition: uncomplicated Substance use status: in withdrawal Qualified Code(s): F10.230 - Alcohol dependence with withdrawal, uncomplicated
[2019-04-01] MEDS: ACETAMINOPHEN 325 MG TAB PO PRN (01:55)
[2019-04-01 06:34] LABS: BUN Creatinine Ratio 23.2 (10-20); Calcium 8.6 mg/dl (8.5-10.1); Creatinine Clr Calc Pharmacy 135.2 ml/min; Est GFR (African American) 142.4; Est GFR (Non-African American) 122.9; Potassium 3.9 mmol/L (3.5-5.1)
[2019-04-01] MEDS: MAGNESIUM OXIDE 400 MG TAB PO SCH ×2 (07:49→13:22)
[2019-04-01] MEDS: POTASSIUM CHLORIDE 20 MEQ TABCR PO SCH (07:49)
[2019-04-01] MEDS: THIAMINE HCL 100 MG TAB PO SCH (07:50)
[2019-04-01] MEDS: CEROVITE ADV FORMULA TAB PO SCH (07:50)
[2019-04-01] MEDS: AMLODIPINE BESYLATE 5 MG TAB PO SCH (07:50)
[2019-04-01] MEDS ORDERED: FUROSEMIDE 20 MG TAB PO SCH (09:00)
[2019-04-01] MEDS: SODIUM CHLORIDE 1 GM TABLET PO SCH ×2 (09:08→13:22)
--- NOTE | 2019-04-01 10:04 | Nephrology Progress Note ---
Date of Service April 01, 2019 Assessment & Plan (1) Chronic hyponatremia: present on admission but worsened as admission progresses to 127 on 03/27, day of consult; urine studies consistent w/ euvolemic hyponatremia , possibly from low solute diet. Sodium was low today at 128. -Continue fluid restriction of 1 L -We will start salt tablets 2 g 3 times daily and Lasix 20 mg p.o. twice daily. Repeat sodium at 2 PM. If sodium is stable or higher, patient can be discharged. Reduce salt tabs to 1 g 3 times daily on discharge. -need to be absolutely sure (?w/ labor economics professor help) when taking po again that food provided him in form he can eat > some starvation ketoacidosis present -daily bmp -He will need renal follow-up in 2 weeks. (2) Hypomagnesemia: Improved with magnesium supplements. Please monitor and replete as needed (3) Hypokalemia: -monitor daily; maintain at about 4 while managing sodium; on K 20 mEq po bid; now on K - rich fluids. Potassium of 3.9 today Subjective Patient seen in follow-up this morning. He feels well denies any vomiting or diarrhea. Sodium is down to 128 today. He is eager to be discharged home Review of Systems Review of Systems: All systems reviewed & are unremarkable except as noted in HPI & below Physical Exam Physical Exam: General exam: Appears comfortable, no acute distress HEENT: Pupils are equal and reactive to light Neck: No JVD, neck is supple trachea is midline Respiratory system: Clear breath sounds bilaterally. Gastrointestinal: Abdomen is soft, non distended, non tender, bowel sounds are present CVS: Regular rate and rhythm. No murmurs, rubs or gallops Musculoskeletal: No joint or muscle tenderness Extremities: Non tender, no edema, peripheral pulses are present Neuro: Oriented, no tremors, no focal neurological deficits Skin: No rashes Results & Data Vital Signs (Past 12 Hours) Vital Signs Temp Pulse Pulse Pulse Resp BP BP 04/01/19 07:24 70 04/01/19 07:20 36.7 C 72 16 129/88 04/01/19 03:30 36.8 C 72 20 168/91 H 04/01/19 01:12 93 H 03/31/19 23:41 37.1 C 82 19 148/77 H Pulse Ox 04/01/19 07:24 04/01/19 07:20 96 04/01/19 03:30 100 04/01/19 01:12 03/31/19 23:41 96 Laboratory Results Laboratory Results - last 24 hr 04/01/19 05:24 Sodium 128 L Potassium 3.9 Chloride 93 L Carbon Dioxide 27 Anion Gap 8.0 BUN 12 Creatinine 0.50 L Est Cr Clr Drug Dosing 135.2 Est GFR ( Amer) 142.4 Est GFR (Non-Af Amer) 122.9 BUN/Creatinine Ratio 23.2 H Glucose 88 Calcium 8.6
[2019-04-01 14:21] LABS: Albumin Level 3.4 gm/dl (3.4-5.0); BUN Creatinine Ratio 15.2 (10-20); Calcium 8.7 mg/dl (8.5-10.1); Creatinine Clr Calc Pharmacy 97.9 ml/min; Est GFR (African American) 124.7; Est GFR (Non-African American) 107.6; Potassium 3.9 mmol/L (3.5-5.1)
[2019-04-01 14:24] LABS: Albumin Globulin Ratio 0.8 (0.9-2); Bilirubin,Total 0.6 mg/dl (0.2-1); Globulin 4.3 gm/dl (2.5-4.0); Total Protein 7.7 gm/dl (6.4-8.2)
--- NOTE | 2019-04-01 15:11 | Hospitalist Progress Note ---
Date of Service April 01, 2019 Assessment & Plan (1) Alcohol dependence: Completed gabapentin protocol, continue as needed lorazepam Provided counseling / support. No signs of alcohol withdrawal Emphasized need to stop drinking to patient, he verbalized understanding and agreement (2) Nausea: Questionable mild ileus Possible etiology is ongoing alcohol withdrawal Resolved, positive bowel movements Tolerating diet well (3) Hyponatremia with decreased serum osmolality: Sodium level as low as 127 Urine sodium and osmolality pointing towards possible SIADH [employer] consulted Fluid restriction ordered, Lasix and salt tablets given Sodium 129, continue fluid restriction Discussed with roundhouse worker Dr. Gee, recommendations: Lasix 20 mg p.o. daily Salt tablets 1 g p.o. 3 times daily Fluid restriction 1.5 L/day Repeat sodium on Friday, April 05, 2019, please forward results or communicate with Dr. Gee for recommendations (4) Hypokalemia: Replaced, resolved Continue potassium 20 mEq/day, repeat basic metabolic profile on April 05, 2019 (5) Hypomagnesemia: Serum Mg 1.6. Continue magnesium oxide replacement repeat magnesium level on April 05, 2019 (6) Ambulatory dysfunction: Chronic problem. 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 PT OT ordered, she prefers to be discharged to home (7) Hypertension: Blood pressure elevated, amlodipine started Continue amlodipine 10 mg p.o. daily Titrate accordingly as outpatient (8) DVT prophylaxis: No anticoagulants because of alcohol abuse. SCD's. Ambulate. (9) Discharge planning issues: Discharge to home Follow-up with primary care physician Dr. Plata on Wednesday, April 03, 2019 Studies to be referred to roundhouse worker Dr. Gee Plan of care discussed in detail at length with patient He is agreeable and understanding with the plan of care Subjective Follow-up for hyponatremia, alcohol withdrawal Seen resting in bed, comfortable, watching TV Alert, oriented x3 States he feels fine overall Denies tremors, anxiety, hallucinations No abdominal pain, tolerating diet well Ambulating with no problems States he is ready and would like to be discharged today Review of Systems Review of Systems: All systems reviewed & are unremarkable except as noted in HPI & below Physical Exam Physical Exam: General- oriented x 3, not in distress, speaks in sentences with no effort or accessory muscle use Eyes- anicteric Neck- no JVD Lungs- clear breath sounds BL Heart- normal rate, regular rhythm; no murmurs Abdomen- normal bowel sounds, nondistended, soft, no tenderness Extremities- no pretibial edema, no calf tenderness Neuro- alert, oriented x 3; no gross focal neurologic deficits Skin- warm & dry Results & Data Vital Signs (Past 12 Hours) Vital Signs Temp Pulse Pulse Resp BP BP Pulse Ox 04/01/19 14:37 36.8 C 78 18 126/77 97 04/01/19 11:25 36.8 C 78 18 126/77 97 04/01/19 07:24 70 04/01/19 07:20 36.7 C 72 16 129/88 96 04/01/19 03:30 36.8 C 72 20 168/91 H 100 Laboratory Results Laboratory Results - last 24 hr 03/24/19 03/24/19 04/01/19 21:33 21:33 05:24 Sodium 128 L Potassium 3.9 Chloride 93 L Carbon Dioxide 27 Anion Gap 8.0 BUN 12 Creatinine 0.50 L Est Cr Clr Drug Dosing 135.2 Est GFR ( Amer) 142.4 Est GFR (Non-Af Amer) 122.9 BUN/Creatinine Ratio 23.2 H Glucose 88 Calcium 8.6 Total Bilirubin AST ALT Alkaline Phosphatase Troponin I < 0.015 Total Protein Albumin Globulin Albumin/Globulin Ratio Ethyl Alcohol mg/dL < 3.0 04/01/19 13:45 Sodium 129 L Potassium 3.9 Chloride 93 L Carbon Dioxide 27 Anion Gap 9.0 BUN 11 Creatinine 0.69 Est Cr Clr Drug Dosing 97.9 Est GFR ( Amer) 124.7 Est GFR (Non-Af Amer) 107.6 BUN/Creatinine Ratio 15.2 Glucose 88 Calcium 8.7 Total Bilirubin 0.6 AST 23 ALT 31 Alkaline Phosphatase 100 Troponin I Total Protein 7.7 Albumin 3.4 Globulin 4.3 H Albumin/Globulin Ratio 0.8 L Ethyl Alcohol mg/dL (1) Alcohol dependence Complication of substance-induced condition: uncomplicated Substance use status: in withdrawal Qualified Code(s): F10.230 - Alcohol dependence with withdrawal, uncomplicated
--- NOTE | 2019-04-01 15:42 | Discharge Summary ---
Date of Service April 01, 2019 Admission HPI Per Admitting Provider CHIEF COMPLAINT: Alcoholism and weakness, ambulatory dysfunction. HISTORY OF PRESENT ILLNESS: This is a 53-year-old male with past medical history significant for frequent admission to the hospital for alcoholism, alcohol withdrawal, chronic hip pain, history of hyponatremia, history of oesophageal status post history of dilatation, history of hypertension, frequent falls, tobacco abuse, history of aortic root dilatation, currently living in an appointment, was brought in because of ambulatory dysfunction. The patient says he is drinking 8-10 beers every day. He went to [facility] today to get alcohol and there he was found to be having balance issues and ambulatory dysfunction and they called the EMS and brought the patient here to the hospital. His alcohol level is less than 3, resting comfortably. Blood pressure somewhat running on the higher side. Received Tylenol for the headache and was started on a banana bag and dose of Librium. Initially, the plan was to send him to home with outpatient rehabilitation, but later decided to send him to the [facility] rehab and we were called to admit to hospital until the rehab placement. Patient ok to go to rehab. Headache is improving. He is seeing okay. He says he gets food on the wheels and he is eating okay and swallowing okay. Denies any cough, no fever, no chills, no chest pain, no shortness of breath, no fevers, no abdominal pain. He says his bowels are moving okay. No blood in the stools or black stools. No hematuria or dysuria. He says he is walking with a walker. He takes a bus to go to the town, but lately he is not going much because of his poor ambulatory status. He gets alcohol by himself. Lives alone. ALLERGIES: PENICILLIN, HYDRALAZINE. PAST MEDICAL HISTORY: As mentioned above. PAST SURGICAL HISTORY: Status post oesophageal dilatation, status post hip surgeries. MEDICATIONS: Currently not taking any medications. FAMILY HISTORY: Significant for cancer, hypertension. SOCIAL HISTORY: Former tobacco use and frequent admissions for alcoholism. He says he drinks about 8-10 beers a day. No history of substance abuse. REVIEW OF SYMPTOMS: As per HPI. Rest of review of systems negative. Admission Exam Per Admitting Provider PHYSICAL EXAMINATION: GENERAL: The patient is alert and oriented, somewhat difficulty with dates. Not in acute distress. VITAL SIGNS: Temperature 37.3, pulse 92, respiratory rate 16, blood pressure 166/103, oxygen 96% on room air. HEENT: No pallor, no icterus. Pupils equal, round, reactive to light. NECK: No neck masses. Supple. CARDIOVASCULAR: S1, S2 heard, regular rate and rhythm, no murmur, no gallop. RESPIRATORY SYSTEM: Normal AP diameter. No accessory muscle use. No wheezing, no crackles. ABDOMEN: Soft, bowel sounds present, nontender. No distention. CENTRAL NERVOUS SYSTEM: Alert, awake and oriented, nonfocal. EXTREMITIES: Mild trace pedal edema, no erythema seen. Principal Diagnosis Alcohol withdrawal, hyponatremia Discharge Exam General- oriented x 3, not in distress, speaks in sentences with no effort or accessory muscle use Eyes- anicteric Neck- no JVD Lungs- clear breath sounds BL Heart- normal rate, regular rhythm; no murmurs Abdomen- normal bowel sounds, nondistended, soft, no tenderness Extremities- no pretibial edema, no calf tenderness Neuro- alert, oriented x 3; no gross focal neurologic deficits Skin- warm & dry Discharge Data Allergies Allergy/AdvReac Type Severity Reaction Status Date / Time Penicillins AdvReac Mild TIRED Verified 03/24/19 09:50 hydralazine AdvReac Vomiting Verified 03/24/19 09:50 Consultations 03/25/19 03:18 ED Decision to Admit Stat 03/25/19 04:53 Consult Case Management - Discharge Planning Routine 03/27/19 14:34 Consult Nephrology Routine 03/29/19 15:11 Consult Gastroenterology Routine Procedures Performed XR KUB/Abdomen 1 view CLINICAL HISTORY: nausea, r/o obstruction pain COMPARISON STUDY: 12/05/2018 FINDINGS: Nonobstructive bowel pattern. Several air-filled loops of small bowel suggesting minimal to mild nonobstructive ileus. Findings of bilateral hip pain procedures. IMPRESSION: Nonobstructive bowel pattern. Minimal ileus. Hospital Course (1) Alcohol dependence: Completed gabapentin protocol, continue as needed lorazepam Provided counseling / support. No signs of alcohol withdrawal Emphasized need to stop drinking to patient, he verbalized understanding and agreement (2) Nausea: Questionable mild ileus Possible etiology is alcohol withdrawal Resolved, positive bowel movements Tolerating diet well (3) Hyponatremia with decreased serum osmolality: Sodium level as low as 127 Urine sodium and osmolality pointing towards possible [employer] Analyst consulted Dr. Gee Fluid restriction ordered, Lasix and salt tablets given Sodium improved to 129, continue fluid restriction Discussed with financial planning advisor Dr. Gee, recommendations: Lasix 20 mg p.o. daily Salt tablets 1 g p.o. 3 times daily Fluid restriction 1.5 L/day Repeat sodium on Friday, April 05, 2019, please forward results or call with Dr. Gee for recommendations (4) Hypokalemia: Replaced, resolved Continue potassium 20 mEq/day, repeat basic metabolic profile on April 05, 2019 (5) Hypomagnesemia: Serum Mg 1.6. Continue magnesium oxide replacement 100mg TID repeat magnesium level on April 05, 2019 (6) Ambulatory dysfunction: Chronic problem. 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 PT OT ordered, she prefers to be discharged to home (7) Hypertension: Blood pressure elevated, amlodipine started, improved Continue amlodipine 10 mg p.o. daily Titrate accordingly as outpatient (8) DVT prophylaxis: No anticoagulants because of alcohol abuse. SCD's. Ambulate. (9) Discharge planning issues: Discharge to home Follow-up with primary care physician Dr. Plata on Wednesday, April 03, 2019 Needs to be referred to financial planning advisor Dr. Gee Plan of care discussed in detail at length with patient He is agreeable and understanding with the plan of care Total Time Total Time Spent Total Time Spent (In Minutes): 50 minutes Discharge Plan Discharge Items Patient Disposition: Home - Self-Care Reason For Visit: WEAKNESS Discharge Diagnosis: Alcohol withdrawal, low sodium level Condition on Discharge: Good Activity: As commented below Activity Comment: Resume activity gradually as tolerated, no heavy exertion Lifting: Wait until after follow-up appointment Exercise/Sports: Wait until after follow-up appointment Non-emergency contact: Primary Care Provider Call non-emergency contact if: you have any medication questions, your symptoms worsen and you have a fever Diet: Heart Healthy Fluids: 1500ml (6 cups) Addtl Attending Provider Instructions: Please follow-up with primary care physician Dr. Plata on April 03 at 1:45 PM. At the [facility] Address: [address], [place] [address] You will also need a blood work- repeat Sodium Level-on that day at the same clinic. It is important that you follow-up with the primary care physician and have blood work on that day as medication adjustments may need to be made. Your new medication is amlodipine 10mg by mouth daily for blood pressure control, potassium and magnesium supplements, multivitamins, thiamine. Lasix 20mg by mouth daily (water pill) and salt tablets 1 gram three times a day to address low sodium level. Please review new medication list and follow instructions carefully. Limit fluid intake to not more than 1.5 L/day. No smoking, no alcohol, no illicit substance use. Please call primary care physician or return to the ER immediately if with recurrence or worsening of symptoms. Pending Studies at Discharge: Yes Studies:: Repeat blood work on Monday, April 03, 2019 at [facility]. Stand-Alone Forms: [facility] Medications and DC Order Prescriptions: New thiamine HCl (vitamin B1) [Vitamin B-1] 100 mg Tablet 100 mg PO QAM 14 Days Qty: 14 RF: 0 amlodipine [Norvasc] 5 mg Tablet 10 mg PO QAM 30 Days Qty: 60 RF: 0 potassium chloride [Klor-Con M20] 20 mEq Tablet,Er Particles/Crystals 20 meq PO DAILY 7 Days Qty: 7 RF: 0 magnesium oxide 400 mg (241.3 mg magnesium) Tablet 400 mg PO TID 7 Days Qty: 21 RF: 0 Certavite-Antioxidant 18-400 mg-mcg Tablet 1 tab PO QAM 30 Days Qty: 30 RF: 0 sodium chloride 1 gram Tablet 1 g PO TID 14 Days Qty: 42 RF: 0 furosemide 20 mg Tablet 20 mg PO DAILY 14 Days Qty: 14 RF: 0 Discharge Orders: Discharge Order (Routine); Ordered 04/01/19 Ordered By: Romario Ratliff Admission Data Admit Date/Time: 03/25/19 03:58 Attending Provider: Romario Ratliff Admit Provider: Marcus Dalton Primary Care Provider: PCP,NO Other Providers: Marcus Dalton ; David Bingham ; Rhonda Ramos ; Mikki Flores Other Interventions: Discharge Summary Assessment (RN) Last Done: 04/01/19 14:37
== END 2019-04-01 15:48 | disposition home or self-care (01) | DRG 897 ==
LOC: ED 20:28 → 2N 03-25 03:58 → SUATTDRO 03-25 03:58 → 2N 03-25 04:21
DX: E83.42 Hypomagnesemia; D64.9 Anemia, unspecified; Y90.6 Blood alcohol level of 120-199 mg/100 ml; F03.90 Unspecified dementia, unspecified severity, without behavioral disturbance, psychotic disturbance, mood disturbance, and anxiety; F10.230 Alcohol dependence with withdrawal, uncomplicated; K56.7 Ileus, unspecified; E87.1 Hypo-osmolality and hyponatremia; R26.89 Other abnormalities of gait and mobility; R13.10 Dysphagia, unspecified; I10 Essential (primary) hypertension; Z88.8 Allergy status to other drugs, medicaments and biological substances; Z87.891 Personal history of nicotine dependence; E87.6 Hypokalemia; Z88.0 Allergy status to penicillin; R29.6 Repeated falls

== ENCOUNTER 2019-04-12 05:38 | Inpatient (IN) ==
[2019-04-12] MEDS ORDERED: MULTI-VITAMIN INFUSION 10 ML, THIAMINE HCL 100 MG, FOLIC ACID 1 MG in SODIUM CHLORIDE 0... IV ONE (06:05)
[2019-04-12] MEDS ORDERED: LORazepam 1 MG/2 ML VIAL IV STA ×2 (06:05→09:28)
[2019-04-12 06:28] LABS: Basophils # (auto) 0.05 K/uL (0-0.2); Basophils % (auto) 0.6 %; Eosinophils # (auto) 0.16 K/uL (0-0.5); Eosinophils % (auto) 1.8 %; Hemoglobin 12.5 g/dL (14.0-18.0); Immature Granulocytes # (auto) 0.03 K/uL (0.00-0.02); Immature Granulocytes % (auto) 0.3 %; Lymphocytes # (auto) 1.25 K/uL (1.2-3.4); Lymphocytes % (auto) 13.8 %; Mean Corpuscular Hemoglobin 28.9 pg (25-34); Mean Corpuscular Hgb Conc 33.8 g/dL (32-36); Mean Corpuscular Volume 85.6 fL (80-100); Mean Platelet Volume 8.6 fL (7.4-10.4); Monocytes # (auto) 0.85 K/uL (0.11-0.59); Monocytes % (auto) 9.4 %; Neutrophils # (auto) 6.72 K/uL (1.4-6.5); Neutrophils % (auto) 74.1 %; Platelet Count 276 K/uL (130-400); RDW Standard Deviation 53.1 fL (36.4-46.3); Red Blood Count 4.32 M/uL (4.7-6.1); White Blood Count 9.06 K/uL (4.8-10.8)
[2019-04-12] MEDS ORDERED: cloNIDine HCL 0.3 MG/24 HR TRANSDERM SYS TD STA (06:33)
[2019-04-12 06:40] LABS: Appearance Urine Clear (Clear); Bilirubin Urine Negative (Negative); Blood Urine Negative (Negative); Color Urine Yellow; Glucose Urine UA Negative (Negative); Ketones Urine Negative (Negative); Leukocyte Esterase Urine Negative (Negative); Nitrite Urine Negative (Negative); Protein Urine Negative (Negative); Specific Gravity Urine 1.009 (1.000-1.030); Urobilinogen Urine Negative (Negative); pH Urine >= 9.0 (4.5-7.5)
[2019-04-12 06:45] LABS: Albumin Level 3.8 gm/dl (3.4-5.0); BUN Creatinine Ratio 7.1 (10-20); Calcium 9.3 mg/dl (8.5-10.1); Creatinine Clr Calc Pharmacy 111.8 ml/min; Est GFR (Non-African American) 109.6; Magnesium 1.6 mg/dl (1.8-2.4); Potassium 3.3 mmol/L (3.5-5.1)
[2019-04-12 06:48] LABS: Albumin Globulin Ratio 0.9 (0.9-2); Bilirubin,Total 0.9 mg/dl (0.2-1); Globulin 4.1 gm/dl (2.5-4.0); Total Protein 7.9 gm/dl (6.4-8.2)
[2019-04-12] MEDS ORDERED: POTASSIUM CHLORIDE 20 MEQ TABCR PO STA (06:48)
[2019-04-12] MEDS ORDERED: ACETAMINOPHEN 500 MG TAB PO STA (07:06)
[2019-04-12 07:34] LABS: Amphetamines+Metham, Urine Neg (Neg); Barbiturates, Urine Neg (Neg); Benzodiazepine, Urine Neg (Neg); Cocaine, Urine Neg (Neg); MDMA (Ecstacy), Urine Neg (Neg); Methadone, Urine Neg (Neg); Opiate, Urine Neg (Neg); Phencyclidine, Urine Neg (Neg)
--- NOTE | 2019-04-12 07:54 | Emergency Department Note ---
History of Present Illness General Chief complaint: Leg Weakness, Bilateral Stated complaint: leg weakness Source: patient and EMS Mode of arrival: EMS Limitations: no limitations History of Present Illness Maximum Pain Intensity: 7 This patient is a 53-year-old male who presents to the emergency department for evaluation of leg weakness. The patient states that his legs "feel like jelly." He reports that his legs will not work and he is unable to walk today. Symptoms started today. They are exacerbated by trying to walk. He does use a walker due to some chronic issues with his legs. Patient is well-known to the department and is a chronic alcoholic. He states his last drink was yesterday. He does state that he feels slightly shaky. He denies any history of alcohol withdrawal seizures. Patient denies any falls. Home Medications Home Medications Medication Instructions Recorded Confirmed Type amlodipine [Norvasc] 10 mg PO QAM 30 Days #60 tab 04/01/19 04/12/19 Rx [id number]-qsdi-[id number] acid 1 tab PO QAM 30 Days #30 tab 04/01/19 04/12/19 Rx [Certavite-Antioxidant] Allergies Allergy/AdvReac Type Severity Reaction Status Date / Time hydralazine AdvReac Intermediate Vomiting Verified 04/12/19 05:49 Penicillins AdvReac Mild TIRED Verified 04/12/19 05:49 Past Med/Surg History Medical History Hypomagnesemia Weakness (Acute) Chronic hyponatremia (Acute) Anemia (Acute) Alcohol dependence (Acute) Alcohol abuse (Acute) Bilateral hip pain (Acute) Generalized weakness (Chronic) Alcohol withdrawal Alcohol abuse (Chronic) Adult failure to thrive (Chronic) Hyponatremia with decreased serum osmolality Onychocryptosis (Chronic) Hypokalemia DTs (delirium tremens) (Resolved) Abnormal EKG (Chronic) Alcohol intoxication Esophageal stenosis (Chronic) DVT prophylaxis Esophageal tear (Resolved) Aortic root dilation (Chronic) Dementia (Chronic) Subgaleal hemorrhage (Resolved) Chronic hyponatremia (Chronic) History of esophageal stricture (Chronic) History of esophageal dilatation (Chronic) Hx of fracture of hip (Chronic) Hypertension (Chronic) Alcoholism (Chronic) Ambulatory dysfunction (Chronic) Dysphagia (Chronic) "h/o esophageal stricture s/p dilation in past" Frequent falls (Chronic) Surgical History History of esophagogastroduodenoscopy (EGD) (Chronic) History of hip surgery (Chronic) s/p fall and fx Family History Other Cancer Hypertension Social History Preferred Language: [place]i Communication Ability: Effective Visual Impairment: No Limitations Hearing Ability: Hard of Hearing Speedboat Operator Required: No Beliefs That Will Affect Care: None marital status: Single Current Living Situation: Alone Current Living Situation Comment: [facility] Other Information That Helps Us Care for You: No Feels Safe at Home: Yes Safety Concerns: Feels Safe At This Time Smoking Status: Former smoker Tobacco Type: cigarettes ; Second Hand Exposure: No ; Hx Alcohol Use: Yes Alcohol type: beer Alcohol Intake Frequency Comment: 7-10 beers a day, uncertain which kind of beer Hx Substance Use: No Review of Systems A total of 10 systems reviewed and were otherwise negative Physical Exam Vital Signs Vital Signs - 24 hr 04/12/19 05:49 04/12/19 06:32 04/12/19 07:37 Temperature 36.8 C Temperature Source Oral Sepsis Recent Fever Within 48 Hours No Sepsis New/Unexplained Change in Mental Status No Sepsis Action Taken by Nursing No Action Required Pulse Rate 95 H 75 Pulse Rate [Finger] 92 H Pulse Rate from SpO2 Sensor 75 Pulse Rhythm Regular Pulse Strength Normal Respiratory Rate 16 20 19 Respiratory Effort / Characteristics Non-Labored Non-Labored Spontaneous Respiratory Depth Normal Normal Respiratory Pattern Regular Blood Pressure 164/112 H 177/99 H Blood Pressure [Right Arm] 180/113 H Blood Pressure Mean 129 125 Blood Pressure Mean [Right Arm] 135 Blood Pressure Position Lying Pulse Oximetry 96 97 96 Oxygen Delivery Method Room Air Room Air Room Air VITALS: Vitals are noted on the nurse's note and reviewed by myself. GENERAL: This is a 53-year-old male, in no acute distress, thin and chronically unwell appearing. SKIN: The skin was without rashes, erythema, edema, or bruising. HEAD: Normocephalic atraumatic. EARS: External auditory canals clear, tympanic membranes pearly geiger without erythema or effusion bilaterally. EYES: Pupils equal round and reactive to light and accommodation. Extraocular movements intact. MOUTH: Mucous membranes moist. NECK: Supple without nuchal rigidity. Cervical spine is nontender. HEART: Regular rate and rhythm without murmurs gallops or rubs. LUNGS: Clear to auscultation bilaterally without wheezes, rales or rhonchi. ABDOMEN: Positive bowel sounds x 4. Soft, nontender to palpation. MUSCULOSKELETAL: Patient has full range of motion throughout. Patient is able to lift both legs off the bed without any difficulty. Strength 5/5 throughout both lower extremities. When patient is stood up to walk, he refuses to remain standing or walk. NEURO: Patient was alert and oriented to person place and time. No focal neurological deficits. Course Administered Medications Acetaminophen (Tylenol) 650 mg PO Q4H PRN PRN Reason: Pain or Fever Stop: 05/12/19 15:38 Last Admin: 04/13/19 08:02 Dose: 650 mg Documented by: [id number] Amlodipine Besylate (Norvasc) 10 mg PO [facility] Stop: 05/12/19 15:59 Last Admin: 04/15/19 08:28 Dose: 10 mg Documented by: [id number] Admin: 04/14/19 08:22 Dose: 10 mg Documented by: [id number] Admin: 04/13/19 07:55 Dose: 10 mg Documented by: [id number] Admin: 04/12/19 16:23 Dose: 10 mg Documented by: [id number] Folic Acid (Folvite) 1 mg PO [facility] Stop: 05/14/19 08:59 Last Admin: 04/15/19 08:29 Dose: 1 mg Documented by: [id number] Admin: 04/14/19 08:24 Dose: 1 mg Documented by: [id number] Ketorolac Tromethamine (Toradol) 15 mg IV Q6H PRN PRN Reason: Pain Stop: 04/18/19 10:41 Last Admin: 04/16/19 06:03 Dose: 15 mg Documented by: [id number] Admin: 04/15/19 20:58 Dose: 15 mg Documented by: [id number] Admin: 04/15/19 06:21 Dose: 15 mg Documented by: [id number] Admin: 04/13/19 21:13 Dose: 15 mg Documented by: [id number] Admin: 04/13/19 16:49 Dose: 15 mg Documented by: [id number] Admin: 04/13/19 10:50 Dose: 15 mg Documented by: [id number] Lorazepam (Ativan) 1 - 3 mg PO UD PRN; Protocol PRN Reason: EtoH Withdrawal AWSS 6-10+ Stop: 05/12/19 15:38 Last Admin: 04/14/19 22:13 Dose: 2 mg Documented by: [id number] Admin: 04/14/19 18:07 Dose: 2 mg Documented by: [id number] Admin: 04/14/19 09:32 Dose: 1 mg Documented by: [id number] Admin: 04/14/19 05:23 Dose: 2 mg Documented by: [id number] Magnesium Oxide (Mag-Ox) 400 mg PO BID [place] Stop: 05/15/19 10:59 Last Admin: 04/15/19 20:54 Dose: 400 mg Documented by: [id number] Admin: 04/15/19 12:04 Dose: 400 mg Documented by: [id number] Multivitamins/Minerals (Multivitamin W/ Minerals Tab) [facility] Stop: 05/13/19 08:59 Last Admin: 04/15/19 08:28 Dose: 1 tab Documented by: [id number] Admin: 04/14/19 08:24 Dose: 1 tab Documented by: [id number] Admin: 04/13/19 07:56 Dose: 1 tab Documented by: [id number] Ondansetron HCl (Zofran) 4 mg IV Q6H PRN PRN Reason: Nausea Stop: 05/12/19 16:20 Last Admin: 04/12/19 16:35 Dose: 4 mg Documented by: [id number] Thiamine HCl (Vitamin B-1) 100 mg PO QAM [place] Stop: 05/12/19 15:59 Last Admin: 04/15/19 08:29 Dose: 100 mg Documented by: [id number] Admin: 04/14/19 08:24 Dose: 100 mg Documented by: [id number] Admin: 04/13/19 07:55 Dose: 100 mg Documented by: [id number] Admin: 04/12/19 16:24 Dose: 100 mg Documented by: [id number] Discontinued Medications Acetaminophen (Tylenol) 1,000 mg PO NOW STA Stop: 04/12/19 07:07 Last Admin: 04/12/19 07:10 Dose: 1,000 mg Documented by: [id number] Clonidine HCl (Zebtvaff-Rxd-6 0.3mg/24hr) 1 patch TD NOW STA Stop: 04/12/19 06:34 Last Admin: 04/12/19 06:48 Dose: 1 patch Documented by: [id number] Gabapentin (Neurontin) 1,200 mg PO TODAY@1600 [place] Stop: 04/12/19 16:01 Last Admin: 04/12/19 16:23 Dose: 1,200 mg Documented by: [id number] Gabapentin (Neurontin) 600 mg PO Q24H [place] Stop: 04/16/19 06:01 Last Admin: 04/16/19 06:00 Dose: 600 mg Documented by: [id number] Gabapentin (Neurontin) 600 mg PO Q6H [place] Stop: 04/13/19 04:01 Last Admin: 04/13/19 03:44 Dose: 600 mg Documented by: [id number] Admin: 04/12/19 21:02 Dose: 600 mg Documented by: [id number] Gabapentin (Neurontin) 600 mg PO Q8H [place] Stop: 04/14/19 06:01 Last Admin: 04/14/19 05:13 Dose: 600 mg Documented by: [id number] Admin: 04/13/19 21:14 Dose: 600 mg Documented by: [id number] Admin: 04/13/19 13:24 Dose: 600 mg Documented by: [id number] Gabapentin (Neurontin) 600 mg PO Q12H [place] Stop: 04/15/19 06:01 Last Admin: 04/15/19 05:06 Dose: 600 mg Documented by: [id number] Admin: 04/14/19 16:34 Dose: 600 mg Documented by: [id number] Multivitamins 10 ml/ Thiamine HCl 100 mg/ Folic Acid 1 mg/Sodium Chloride 1,011.2 mls @ 1,011.2 mls/hr IV .Q1H ONE Stop: 04/12/19 07:04 Last Infusion: 04/12/19 07:30 Dose: 0 mls/hr Documented by: [id number] Admin: 04/12/19 06:27 Dose: 1,011.2 mls/hr Documented by: [id number] Lorazepam (Ativan) 1 mg in 2 mls @ 2 mls/min IV NOW STA Stop: 04/12/19 06:06 Last Admin: 04/12/19 06:27 Dose: 2 mls/min Documented by: [id number] Lorazepam (Ativan) 1 mg in 2 mls @ 2 mls/min IV NOW STA Stop: 04/12/19 09:29 Last Admin: 04/12/19 09:39 Dose: 2 mls/min Documented by: [id number] Magnesium Sulfate/Dextrose (Magnesium Sulfate / D5w) 1 gm in 100 mls @ 100 mls/hr IV ONE ONE Stop: 04/12/19 16:59 Last Infusion: 04/12/19 17:47 Dose: 0 mls/hr Documented by: [id number] Admin: 04/12/19 16:22 Dose: 100 mls/hr Documented by: [id number] Folic Acid 1 mg/ Syringe 10 mls @ 5 mls/min IV QAM [place] Stop: 05/12/19 15:59 Last Admin: 04/13/19 07:54 Dose: 5 mls/min Documented by: [id number] Admin: 04/12/19 16:23 Dose: 5 mls/min Documented by: [id number] Influenza Virus Vaccine Quadrival (Flucelvax Quad Vaccine) 0.5 ml IM .ONCE ONE Stop: 04/12/19 15:01 Last Admin: 04/13/19 10:46 Dose: Not Given Documented by: [id number] Magnesium Oxide (Mag-Ox) 400 mg PO BID [place] Stop: 05/13/19 17:14 Last Admin: 04/14/19 08:23 Dose: 400 mg Documented by: [id number] Admin: 04/13/19 19:38 Dose: 400 mg Documented by: [id number] Admin: 04/13/19 17:25 Dose: 400 mg Documented by: [id number] Miscellaneous (Check Clonidine Patch) 1 ea N/A QS [place] Stop: 05/12/19 07:59 Last Admin: 04/12/19 07:46 Dose: 1 ea Documented by: [id number] Potassium Chloride (Klor-Con M20) 40 meq PO NOW STA Stop: 04/12/19 06:49 Last Admin: 04/12/19 07:01 Dose: 40 meq Documented by: [id number] Potassium Chloride (Klor-Con M10) 40 meq PO NOW STA Stop: 04/13/19 10:43 Last Admin: 04/13/19 11:22 Dose: 40 meq Documented by: [id number] Potassium Chloride (Klor-Con M20) 40 meq PO BID [place] Stop: 05/13/19 20:59 Last Admin: 04/14/19 08:23 Dose: 40 meq Documented by: [id number] Admin: 04/13/19 19:39 Dose: 40 meq Documented by: [id number] Medical Decision Making Differential Diagnosis Differential diagnosis includes alcohol withdrawal, alcohol intoxication, electrolyte abnormality, dehydration, infection, among others. Home Medications Current Medication List: was personally reviewed by me Laboratory Data Attestation: I reviewed the patient's lab results. Result diagrams: 04/13/19 06:22 04/16/19 06:33 Lab Results 04/12/19 04/12/19 04/12/19 Range/Units 06:13 06:13 06:13 WBC 9.06 (4.8-10.8) K/uL RBC 4.32 L (4.7-6.1) M/uL Hgb 12.5 L (14.0-18.0) g/dL Hct 37.0 L (42-52) % MCV 85.6 (80-100) fL MCH 28.9 (25-34) pg MCHC 33.8 (32-36) g/dL RDW Std Deviation 53.1 H (36.4-46.3) fL RDW Coeff of Luis 17.0 H (11.5-14.5) % Plt Count 276 (130-400) K/uL MPV 8.6 (7.4-10.4) fL Immature Gran % (Auto) 0.3 % Neut % (Auto) 74.1 % Lymph % (Auto) 13.8 % [place] % (Auto) 9.4 % Eos % (Auto) 1.8 % Baso % (Auto) 0.6 % Immature Gran # (Auto) 0.03 H (0.00-0.02) K/uL Neut # (Auto) 6.72 H (1.4-6.5) K/uL Lymph # (Auto) 1.25 (1.2-3.4) K/uL [place] # (Auto) 0.85 H (0.11-0.59) K/uL Eos # (Auto) 0.16 (0-0.5) K/uL Baso # (Auto) 0.05 (0-0.2) K/uL Sodium 135 L (136-145) mmol/L Potassium 3.3 L (3.5-5.1) mmol/L Chloride 97 L (98-107) mmol/L Carbon Dioxide 29 (21-32) mmol/L Anion Gap 9.0 (3-11) BUN 5 L (7-18) mg/dl Creatinine 0.66 (0.6-1.4) mg/dl Est Cr Clr Drug Dosing 111.8 ml/min Est GFR ( Amer) 127.0 Est GFR (Non-Af Amer) 109.6 BUN/Creatinine Ratio 7.1 L (10-20) Glucose 94 (70-99) mg/dl Calcium 9.3 (8.5-10.1) mg/dl Magnesium 1.6 L (1.8-2.4) mg/dl Total Bilirubin 0.9 (0.2-1) mg/dl AST 52 H (15-37) U/L ALT 26 (12-78) U/L Alkaline Phosphatase 119 H (45-117) U/L Total Protein 7.9 (6.4-8.2) gm/dl Albumin 3.8 (3.4-5.0) gm/dl Globulin 4.1 H (2.5-4.0) gm/dl Albumin/Globulin Ratio 0.9 (0.9-2) Urine Color Urine Appearance (Clear) Urine pH (4.5-7.5) Ur Specific [place] (1.000-1.030) Urine Protein (Negative) Urine Glucose (UA) (Negative) Urine Ketones (Negative) Urine Blood (Negative) Urine Nitrite (Negative) Urine Bilirubin (Negative) Urine Urobilinogen (Negative) Ur Leukocyte Esterase (Negative) Urine Opiates Screen (Neg) Ur Methadone, Qual (Neg) Urine Barbiturates (Neg) Ur Phencyclidine (PCP) (Neg) U Amphetamin/Meth Scrn (Neg) MDMA (Ecstasy) Screen (Neg) U Benzodiazepines Scrn (Neg) Ur Cocaine Metabolite (Neg) U Marijuana (THC) Screen (Neg) Ethyl Alcohol mg/dL < 3.0 (0-3) mg/dl 04/12/19 04/12/19 Range/Units 06:25 06:25 WBC (4.8-10.8) K/uL RBC (4.7-6.1) M/uL Hgb (14.0-18.0) g/dL Hct (42-52) % MCV (80-100) fL MCH (25-34) pg MCHC (32-36) g/dL RDW Std Deviation (36.4-46.3) fL RDW Coeff of Luis (11.5-14.5) % Plt Count (130-400) K/uL MPV (7.4-10.4) fL Immature Gran % (Auto) % Neut % (Auto) % Lymph % (Auto) % [place] % (Auto) % Eos % (Auto) % Baso % (Auto) % Immature Gran # (Auto) (0.00-0.02) K/uL Neut # (Auto) (1.4-6.5) K/uL Lymph # (Auto) (1.2-3.4) K/uL [place] # (Auto) (0.11-0.59) K/uL Eos # (Auto) (0-0.5) K/uL Baso # (Auto) (0-0.2) K/uL Sodium (136-145) mmol/L Potassium (3.5-5.1) mmol/L Chloride (98-107) mmol/L Carbon Dioxide (21-32) mmol/L Anion Gap (3-11) BUN (7-18) mg/dl Creatinine (0.6-1.4) mg/dl Est Cr Clr Drug Dosing ml/min Est GFR ( Amer) Est GFR (Non-Af Amer) BUN/Creatinine Ratio (10-20) Glucose (70-99) mg/dl Calcium (8.5-10.1) mg/dl Magnesium (1.8-2.4) mg/dl Total Bilirubin (0.2-1) mg/dl AST (15-37) U/L ALT (12-78) U/L Alkaline Phosphatase (45-117) U/L Total Protein (6.4-8.2) gm/dl Albumin (3.4-5.0) gm/dl Globulin (2.5-4.0) gm/dl Albumin/Globulin Ratio (0.9-2) Urine Color Yellow Urine Appearance Clear (Clear) Urine pH >= 9.0 H (4.5-7.5) Ur Specific [place] 1.009 (1.000-1.030) Urine Protein Negative (Negative) Urine Glucose (UA) Negative (Negative) Urine Ketones Negative (Negative) Urine Blood Negative (Negative) Urine Nitrite Negative (Negative) Urine Bilirubin Negative (Negative) Urine Urobilinogen Negative (Negative) Ur Leukocyte Esterase Negative (Negative) Urine Opiates Screen Neg (Neg) Ur Methadone, Qual Neg (Neg) Urine Barbiturates Neg (Neg) Ur Phencyclidine (PCP) Neg (Neg) U Amphetamin/Meth Scrn Neg (Neg) MDMA (Ecstasy) Screen Neg (Neg) U Benzodiazepines Scrn Neg (Neg) Ur Cocaine Metabolite Neg (Neg) U Marijuana (THC) Screen Neg (Neg) Ethyl Alcohol mg/dL (0-3) mg/dl Blood Pressure Blood Pressure Findings: Elevated blood pressure Blood Pressure Disposition: elevated BP felt to be situational MDM Narrative This patient is a 53-year-old male with history of alcoholism who is well-known to this department. Patient is here stating that he is unable to stand or walk. Of note, patient has been here with similar complaints multiple times in the past. Patient's alcohol level is currently 0. He was given a dose of Ativan and IV banana bag. A clonidine patch was placed on the patient. I did speak with case management about placing patient in a rehab facility. They report the patient will need PT and OT eval's. These were ordered. At change of shift, this was still pending. Patient was signed out to Dr. Dallas at change of shift pending placement. Impression & Plan Bilateral leg weakness Discharge Plan Visit Data *Final* Discharge Date/Time: 04/12/19 12:32 Chief Complaint: Leg Weakness, Bilateral Stated Complaint: leg weakness ED Provider: Junaid Dallas ED Midlevel Provider: Marcia Ro Discharge Problem: Bilateral leg weakness Patient Disposition: Admitted As Inpatient Discharge Instructions Interventions: ED Discharge Assessment Last Done: 04/12/19 12:32
[2019-04-12] MEDS ORDERED: CHECK CLONIDINE PATCH PLACEMENT SCH (08:00)
--- NOTE | 2019-04-12 11:02 | History & Physical Report ---
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 Presented with complaint of leg weakness. Denies back pain, leg pain, paresthesias, injury or fall. Attempted placement to rehab from ER however was on able to be evaluated by PT secondary to hypertension -PT OT [place] -manager merchandising for assistance in placement (2) Alcohol withdrawal: Chronic alcoholism Reported last drink couple days ago. In ER negative alcohol level -In ER was given total 2 mg Ativan, banana bag, clonidine patch was placed -Currently patient calm and without tremors -Alcohol withdrawal protocol with gabapentin, Ativan as needed (3) Hypomagnesemia: Magnesium 1.6 -Replace and monitor (4) Hypokalemia: K: 3.3 -In ER was given KCl 40 mEq p.o. -Replace and monitor (5) Chronic hyponatremia: During last admission had hyponatremia requiring sodium tablets, fluid restriction and Lasix per nephrology recommendations. Patient was not taking recommended medications since discharge Today sodium: 135 -Monitor electrolytes (6) Hypertension: History hypertension. Patient has not been taking BP medications BP as high of 180/131 and ER down to 167/107 -Restart amlodipine -Monitor BP DVT Prophylaxis -SCDs Full Code as per discussion with pt Does not follow with PCP for routine care Pt was seen and care coordinated with Dr Ratliff. See addendum History of Present Illness Chief Complaint: Leg weakness Primary Care Provider: NO PCP Pt is 53 y/o M with PMH alcoholism, HTN, chronic hyponatremia, h/o ambulatory dysfunction, h/o esophageal stenosis s/p dilation in past presented to ER with complaint of leg weakness. Patient reports this morning was trying to get off his couch and when he went to stand his legs felt very weak and felt like "Jell- O". Patient states drinks 8 8 beers a day, reports last drink was "a couple days ago". In ER was found to have some mild tremors reported and negative EtOH level. Was given total 2 mg Ativan, banana bag, clonidine patch was placed, Tylenol 1 g, KCl 40 mEq p.o. Patient with history of multiple hospitalizations secondary to alcohol withdrawal/ambulatory dysfunction. Most recent hospital admission 03/25/2019- 04/01/2019, during that admission had hyponatremia and had fluid restrictions was discharged on salt tablets and Lasix. He also had noted hypertension and was started on amlodipine and discharged on amlodipine. Patient reports did not take prescribed medications. He was scheduled a PCP follow-up with Dr Malloy, in which he did not keep. Denies hitting head, LOC, recent fall, fever/chills, diaphoresis, N/V/D/C, ROACH, dizziness, syncope, vision changes, neck pain, CP, SOB, orthopnea, palpitations, cough, sore throat, choking, otalgia, rhinorrhea, abdominal pain, paresthesias, extremity edema, rashes, back pain, loss control bowel or bladder, saddle paresthesias urinary symptoms. In ER he was attempted to try to get patient placed however reports could not secondary to patient's elevated BP Allergies Allergy/AdvReac Type Severity Reaction Status Date / Time hydralazine AdvReac Intermediate Vomiting Verified 04/12/19 05:49 Penicillins AdvReac Mild TIRED Verified 04/12/19 05:49 Home Medications Home Medications Medication Instructions Recorded Confirmed Type amlodipine [Norvasc] 10 mg PO QAM 30 Days #60 tab 04/01/19 04/12/19 Rx furosemide 20 mg PO DAILY 14 Days #14 tab 04/01/19 04/12/19 Rx irrysobnmxkm-tebs-kiouc acid 1 tab PO QAM 30 Days #30 tab 04/01/19 04/12/19 Rx [Certavite-Antioxidant] sodium chloride 1 g PO TID 14 Days #42 tab 04/01/19 04/12/19 Rx thiamine HCl (vitamin B1) [Vitamin 100 mg PO QAM 14 Days #14 tab 04/01/19 04/12/19 Rx B-1] Past Med/Surg History Medical History Hypomagnesemia Weakness (Acute) Chronic hyponatremia (Acute) Anemia (Acute) Alcohol dependence (Acute) Alcohol abuse (Acute) Bilateral hip pain (Acute) Generalized weakness (Chronic) Alcohol withdrawal Alcohol abuse (Chronic) Adult failure to thrive (Chronic) Hyponatremia with decreased serum osmolality Onychocryptosis (Chronic) Hypokalemia DTs (delirium tremens) (Resolved) Abnormal EKG (Chronic) Alcohol intoxication Esophageal stenosis (Chronic) DVT prophylaxis Esophageal tear (Resolved) Aortic root dilation (Chronic) Dementia (Chronic) Subgaleal hemorrhage (Resolved) Chronic hyponatremia (Chronic) History of esophageal stricture (Chronic) History of esophageal dilatation (Chronic) Hx of fracture of hip (Chronic) Hypertension (Chronic) Alcoholism (Chronic) Ambulatory dysfunction (Chronic) Dysphagia (Chronic) "h/o esophageal stricture s/p dilation in past" Frequent falls (Chronic) Surgical History History of esophagogastroduodenoscopy (EGD) (Chronic) History of hip surgery (Chronic) s/p fall and fx Family History Other Cancer Hypertension Social History Preferred Language: Slovenian Communication Ability: Effective Visual Impairment: No Limitations Hearing Ability: Hard of Hearing Marketing Instructor Required: No Beliefs That Will Affect Care: None marital status: Single Current Living Situation: Alone Current Living Situation Comment: [employer] Other Information That Helps Us Care for You: No Feels Safe at Home: Yes Safety Concerns: Feels Safe At This Time Smoking Status: Former smoker Tobacco Type: cigarettes ; Second Hand Exposure: No ; Hx Alcohol Use: Yes Alcohol type: beer Alcohol Intake Frequency Comment: 7-10 beers a day, uncertain which kind of beer Hx Substance Use: No Review of Systems Review of Systems: All systems reviewed & are unremarkable except as noted in HPI & below Physical Exam Physical Exam: General: no acute distress, moderately developed, moderately nourished Head: normocephalic, atraumatic Eyes: PERRL, EOM's intact, conjunctiva non-injected, anicteric ENT: normal inspection external ears, nose, mucous membranes moist Neck: supple, trachea midline, non-tender, ROM intact Lungs: clear, no respiratory distress, no wheezing/rhonchi/rales CV: RRR, no murmur, no pretibial edema Abd: normal BS, soft, non-tender Ext: no cyanosis, no calf tenderness; flexion and extension of bilateral hips, knees, ankles intact bilaterally, non-tender to palpation, distal pulses intact. toenails thickened Neuro: Drowsy, but awakens to voice, oriented to person and place, no focal deficits noted Skin: warm, dry Results & Data Vital Signs (Past 12 Hours) Vital Signs Temp Pulse Pulse Resp BP BP Pulse Ox 04/12/19 10:48 84 18 189/111 H 97 04/12/19 10:00 91 H 22 167/107 H 96 04/12/19 09:41 105 H 19 170/106 H 91 04/12/19 09:31 89 20 04/12/19 09:00 110 H 21 180/131 H 95 04/12/19 08:30 109 H 21 97 04/12/19 08:00 85 13 181/107 H 97 04/12/19 07:37 75 19 177/99 H 96 04/12/19 06:32 92 H 20 180/113 H 97 04/12/19 05:49 36.8 C 95 H 16 164/112 H 96 Laboratory Results Short CBC 04/12/19 Range/Units 06:13 WBC 9.06 (4.8-10.8) K/uL Hgb 12.5 L (14.0-18.0) g/dL Hct 37.0 L (42-52) % Plt Count 276 (130-400) K/uL BMP 04/12/19 06:13 Sodium 135 L Potassium 3.3 L Chloride 97 L Carbon Dioxide 29 BUN 5 L Creatinine 0.66 Glucose 94 Calcium 9.3 Liver Function 04/12/19 Range/Units 06:13 Total Bilirubin 0.9 (0.2-1) mg/dl AST 52 H (15-37) U/L ALT 26 (12-78) U/L Alkaline Phosphatase 119 H (45-117) U/L Albumin 3.8 (3.4-5.0) gm/dl Urine 04/12/19 Range/Units 06:25 Urine Color Yellow Urine Appearance Clear (Clear) Urine pH >= 9.0 H (4.5-7.5) Ur Specific [place] 1.009 (1.000-1.030) Urine Protein Negative (Negative) Urine Glucose (UA) Negative (Negative) Code Status & VTE Plan VTE Prophylaxis Plan VTE Prophylaxis will be ordered: Yes Supervising Physician Co-Signing Physician Notes Attending Addendum: care coordinated with BRODIE Hill please refer to her notes for full details, I agree with her notes patient seen and examined, records reviewed by myself as well on exam, patient seen resting in bed, having dinner main complaint is leg weakness no other symptoms VS noted and reviewed oriented x3, not in distress, speaks in sentences with no effort nor accessory muscle use normal rate, regular rhythm, no murmurs clear breath sounds bilaterally non distended, soft, nontender no bipedal edema, erythema, warmth no neuro deficits- motor strength 5/5 on BL LE WBC 9.06 Hg 12.5 Crea 0.66 ASSESSMENT AND PLAN LEG WEAKNESS likely from alcoholism, electrolyte disturbance correct low K and Mg ALCOHOLISM Alcohol withdrawal protocol other diagnoses and plan of care as per BRODIE Hill notes Romario Ratliff MD (1) Alcohol withdrawal Complication of substance-induced condition: with delirium Qualified Code(s): F10.231 - Alcohol dependence with withdrawal delirium
[2019-04-12] MEDS ORDERED: INFLUENZA ADMINISTRATION CHARGE ONE (15:00)
[2019-04-12] MEDS ORDERED: INFLUENZA VIRUS QUAD VACCINE 0.5 ML SYR IM ONE (15:00)
[2019-04-12] MEDS ORDERED: GABAPENTIN 1200MG ALCOHOL WITHDRAWAL LOAD PO STA (15:39)
[2019-04-12] MEDS ORDERED: LORazepam 0.5 MG TAB PO PRN (15:39)
[2019-04-12] MEDS ORDERED: MAGNESIUM SULFATE / D5W 1 GM/100 ML BAG IV ONE (16:00)
[2019-04-12] MEDS ORDERED: GABAPENTIN 600 MG TAB PO SCH (16:00)
[2019-04-12] MEDS ORDERED: ONDANSETRON INJ 2 MG/ML 2 ML VIAL IV PRN (16:21)
[2019-04-12] MEDS: AMLODIPINE BESYLATE 5 MG TAB PO SCH (16:23)
[2019-04-12] MEDS: FOLIC ACID 1 MG in SYRINGE 9.8 ML IV SCH (16:23)
[2019-04-12] MEDS: THIAMINE HCL 100 MG TAB PO SCH (16:24)
[2019-04-12] MEDS ORDERED: cloNIDine HCL 0.1 MG TAB PO PRN (18:45)
[2019-04-12] MEDS: GABAPENTIN 600 MG TAB PO SCH (21:02)
[2019-04-13] MEDS: GABAPENTIN 600 MG TAB PO SCH ×3 (03:44→21:14)
[2019-04-13 06:38] LABS: Hematocrit (blood only) 38.5 % (42-52); Hemoglobin 13.4 g/dL (14.0-18.0); Mean Corpuscular Hemoglobin 29.9 pg (25-34); Mean Corpuscular Hgb Conc 34.8 g/dL (32-36); Mean Corpuscular Volume 85.9 fL (80-100); Mean Platelet Volume 8.8 fL (7.4-10.4); Platelet Count 191 K/uL (130-400); RDW Coefficient of Variation 16.7 % (11.5-14.5); RDW Standard Deviation 52.5 fL (36.4-46.3); Red Blood Count 4.48 M/uL (4.7-6.1); White Blood Count 9.24 K/uL (4.8-10.8)
[2019-04-13 07:18] LABS: BUN Creatinine Ratio 9.2 (10-20); Calcium 8.4 mg/dl (8.5-10.1); Potassium 3.1 mmol/L (3.5-5.1)
[2019-04-13] MEDS: FOLIC ACID 1 MG in SYRINGE 9.8 ML IV SCH (07:54)
[2019-04-13] MEDS: AMLODIPINE BESYLATE 5 MG TAB PO SCH (07:55)
[2019-04-13] MEDS: THIAMINE HCL 100 MG TAB PO SCH (07:55)
[2019-04-13] MEDS: CEROVITE ADV FORMULA TAB PO SCH (07:56)
[2019-04-13] MEDS: ACETAMINOPHEN 325 MG TAB PO PRN (08:02)
[2019-04-13] MEDS ORDERED: POTASSIUM CHLORIDE 10 MEQ TABCR PO STA (10:42)
[2019-04-13] MEDS: KETOROLAC TROMETHAMINE 15 MG/ML VIAL IV PRN ×3 (10:50→21:13)
--- NOTE | 2019-04-13 17:14 | Hospitalist Progress Note ---
Date of Service April 13, 2019 Assessment & Plan (1) Ambulatory dysfunction: -PT OT eval (2) Alcohol withdrawal: no signs of active withdrawal symptoms today monitor closely -Alcohol withdrawal protocol with gabapentin, Ativan as needed (3) Hypomagnesemia: Mg pO TID (4) Hypokalemia: K: 3.3 -Replace and monitor (5) Chronic hyponatremia: Na 128 likely SIADH fluid restriction monitor (6) Hypertension: improved continue Amlodipine 10mg po daily DVT Prophylaxis -SCDs Full Code as per discussion with pt Does not follow with PCP for routine care Subjective ff up for weakness seen resting in bedside chair, comfortable not in distress leg weakness improving today denies anxiety, tremors, hallucinations denies other symptoms Review of Systems Review of Systems: All systems reviewed & are unremarkable except as noted in HPI & below Physical Exam Physical Exam: General- oriented x 2, not in distress, speaks in sentences with no effort or accessory muscle use Eyes- anicteric Neck- no JVD Lungs- clear breath sounds bilaterally no crackles/no wheezing Heart- normal rate, regular rhythm; no murmurs Abdomen- normal bowel sounds, nondistended, soft, nontender Extremities- no pretibial edema, no calf tenderness Neuro- alert, oriented x 3; no gross focal neurologic deficits Skin- warm & dry Results & Data Vital Signs (Past 12 Hours) Vital Signs Temp Pulse Resp BP BP Pulse Ox 04/13/19 16:17 36.7 C 84 18 144/87 H 94 04/13/19 11:46 36.8 C 90 18 114/79 96 04/13/19 07:38 36.5 C 83 20 135/88 94 (1) Alcohol withdrawal Complication of substance-induced condition: with delirium Qualified Code(s): F10.231 - Alcohol dependence with withdrawal delirium
[2019-04-13] MEDS: MAGNESIUM OXIDE 400 MG TAB PO SCH ×2 (17:25→19:38)
[2019-04-13] MEDS: POTASSIUM CHLORIDE 20 MEQ TABCR PO SCH (19:39)
[2019-04-14] MEDS: GABAPENTIN 600 MG TAB PO SCH ×2 (05:13→16:34)
[2019-04-14] MEDS: LORazepam 1 MG TAB PO PRN ×4 (05:23→22:13)
[2019-04-14] MEDS: AMLODIPINE BESYLATE 5 MG TAB PO SCH (08:22)
[2019-04-14] MEDS: MAGNESIUM OXIDE 400 MG TAB PO SCH (08:23)
[2019-04-14] MEDS: POTASSIUM CHLORIDE 20 MEQ TABCR PO SCH (08:23)
[2019-04-14] MEDS: CEROVITE ADV FORMULA TAB PO SCH (08:24)
[2019-04-14] MEDS: THIAMINE HCL 100 MG TAB PO SCH (08:24)
[2019-04-14] MEDS: FOLIC ACID 1 MG TAB PO SCH (08:24)
[2019-04-14 10:24] LABS: BUN Creatinine Ratio 11.3 (10-20); Calcium 9.1 mg/dl (8.5-10.1); Creatinine Clr Calc Pharmacy 108.1 ml/min; Est GFR (African American) 129.5; Est GFR (Non-African American) 111.7; Phosphorus 2.8 mg/dl (2.5-4.9); Potassium 3.9 mmol/L (3.5-5.1)
--- NOTE | 2019-04-14 16:06 | Hospitalist Progress Note ---
Date of Service April 14, 2019 Assessment & Plan (1) Ambulatory dysfunction: -continue PT OT eval (2) Alcohol withdrawal: no signs of active withdrawal this AM -Alcohol withdrawal protocol with gabapentin, Ativan as needed (3) Hypomagnesemia: resolved (4) Hypokalemia: resolved monitor (5) Chronic hyponatremia: Na 130 likely SIADH fluid restriction monitor (6) Hypertension: improved continue Amlodipine 10mg po daily DVT Prophylaxis -SCDs Full Code as per discussion with pt Does not follow with PCP for routine care Disposition pending PT/OT evaluation ordered Subjective ff up for weakness seen sitting up in bed, comfortable states he feels improved today less weakness of the legs denies tremors, anxiety, hallucinations denies other symptoms Review of Systems Review of Systems: All systems reviewed & are unremarkable except as noted in HPI & below Physical Exam Physical Exam: General- oriented x 3, not in distress, speaks in sentences with no effort or accessory muscle use Eyes- anicteric Neck- no JVD Lungs- clear BS BL no rales/wheezing Heart- normal rate, regular rhythm; no murmurs Abdomen- normal bowel sounds, nondistended, soft, nontender Extremities- no pretibial edema, no calf tenderness Neuro- alert, oriented x 3; no gross focal neurologic deficits Skin- warm & dry Results & Data Vital Signs (Past 12 Hours) Vital Signs Temp Pulse Resp BP Pulse Ox 04/14/19 15:31 37 C 96 H 20 136/83 97 04/14/19 10:55 37 C 85 20 139/85 98 04/14/19 07:18 36.8 C 83 18 142/89 H 95 Laboratory Results Laboratory Results - last 24 hr 04/14/19 09:32 Sodium 130 L Potassium 3.9 D Chloride 98 Carbon Dioxide 25 Anion Gap 7.0 BUN 7 Creatinine 0.63 Est Cr Clr Drug Dosing 108.1 Est GFR ( Amer) 129.5 Est GFR (Non-Af Amer) 111.7 BUN/Creatinine Ratio 11.3 Glucose 89 Calcium 9.1 Phosphorus 2.8 Magnesium 2.0 (1) Alcohol withdrawal Complication of substance-induced condition: with delirium Qualified Code(s): F10.231 - Alcohol dependence with withdrawal delirium
[2019-04-15] MEDS: GABAPENTIN 600 MG TAB PO SCH (05:06)
[2019-04-15] MEDS: KETOROLAC TROMETHAMINE 15 MG/ML VIAL IV PRN ×2 (06:21→20:58)
[2019-04-15 07:49] LABS: BUN Creatinine Ratio 17.6 (10-20); Blood Urea Nitrogen 8 mg/dl (7-18); Calcium 8.7 mg/dl (8.5-10.1); Carbon Dioxide 23 mmol/L (21-32); Chloride 94 mmol/L (98-107); Creatinine Clr Calc Pharmacy 161.9 ml/min; Est GFR (African American) > 150.0; Est GFR (Non-African American) 130.7; Glucose 89 mg/dl (70-99); Magnesium 1.7 mg/dl (1.8-2.4); Potassium 3.6 mmol/L (3.5-5.1); Sodium 126 mmol/L (136-145)
[2019-04-15] MEDS: CEROVITE ADV FORMULA TAB PO SCH (08:28)
[2019-04-15] MEDS: AMLODIPINE BESYLATE 5 MG TAB PO SCH (08:28)
[2019-04-15] MEDS: THIAMINE HCL 100 MG TAB PO SCH (08:29)
[2019-04-15] MEDS: FOLIC ACID 1 MG TAB PO SCH (08:29)
[2019-04-15] MEDS: MAGNESIUM OXIDE 400 MG TAB PO SCH ×2 (12:04→20:54)
[2019-04-15 13:22] LABS: BUN Creatinine Ratio 17.3 (10-20); Calcium 8.9 mg/dl (8.5-10.1); Creatinine Clr Calc Pharmacy 126.6 ml/min; Est GFR (African American) 136.9; Est GFR (Non-African American) 118.1; Potassium 3.8 mmol/L (3.5-5.1)
--- NOTE | 2019-04-15 18:18 | Hospitalist Progress Note ---
Date of Service April 15, 2019 Assessment & Plan (1) Ambulatory dysfunction: Leg weakness improving Treatment of alcohol withdrawal, electrolyte abnormalities noted below -continue PT OT eval (2) Alcohol withdrawal: no signs of active withdrawal this AM -Alcohol withdrawal protocol with gabapentin, Ativan as needed (3) Hypomagnesemia: Magnesium supplementation (4) Hypokalemia: Continue monitoring and replacement (5) Chronic hyponatremia: likely SIADH Sodium 129 fluid restriction 1.5 L daily monitor (6) Hypertension: improved continue Amlodipine 10mg po daily DVT Prophylaxis -SCDs Full Code as per discussion with pt Does not follow with PCP for routine care Disposition pending PT/OT evaluation ordered Subjective Follow-up for weakness, hyponatremia Seen resting in bed, sleeping but easily awakened Required Ativan overnight States he feels fine overall today, no tremors/anxiety/hallucinations Denies headache, dizziness, chest pain, shortness of breath Has not ambulated today Denies other symptoms Review of Systems Review of Systems: All systems reviewed & are unremarkable except as noted in HPI & below Physical Exam Physical Exam: General- oriented x 3, not in distress, speaks in sentences with no effort or accessory muscle use Eyes- anicteric Neck- no JVD Lungs- clear breath sounds bilaterally Heart- normal rate, regular rhythm; no murmurs Abdomen- normal bowel sounds, nondistended, soft, no tenderness Extremities- no pretibial edema, no calf tenderness Neuro- alert, oriented x 3; no gross focal neurologic deficits Skin- warm & dry Results & Data Vital Signs (Past 12 Hours) Vital Signs Temp Pulse Resp BP BP Pulse Ox 04/15/19 15:57 37.2 C 86 18 148/86 H 96 04/15/19 10:51 36.8 C 78 18 136/81 96 04/15/19 08:12 36.7 C 80 18 150/93 H 97 04/15/19 06:47 36.7 C 84 16 141/86 H 96 Laboratory Results Laboratory Results - last 24 hr 04/15/19 04/15/19 07:02 12:44 Sodium 126 L 129 L Potassium 3.6 3.8 Chloride 94 L 94 L Carbon Dioxide 23 25 Anion Gap 9.0 10.0 BUN 8 9 Creatinine 0.43 L 0.55 L Est Cr Clr Drug Dosing 161.9 126.6 Est GFR ( Amer) > 150.0 136.9 Est GFR (Non-Af Amer) 130.7 118.1 BUN/Creatinine Ratio 17.6 17.3 Glucose 89 97 Calcium 8.7 8.9 Magnesium 1.7 L (1) Alcohol withdrawal Complication of substance-induced condition: with delirium Qualified Code(s): F10.231 - Alcohol dependence with withdrawal delirium
[2019-04-16] MEDS ORDERED: GABAPENTIN 600 MG TAB PO SCH (06:00)
[2019-04-16] MEDS: KETOROLAC TROMETHAMINE 15 MG/ML VIAL IV PRN (06:03)
[2019-04-16 07:21] LABS: BUN Creatinine Ratio 20.3 (10-20); Calcium 8.8 mg/dl (8.5-10.1); Creatinine Clr Calc Pharmacy 158.5 ml/min; Est GFR (African American) 148.7; Est GFR (Non-African American) 128.3; Magnesium 1.8 mg/dl (1.8-2.4); Potassium 3.5 mmol/L (3.5-5.1)
[2019-04-16] MEDS: CEROVITE ADV FORMULA TAB PO SCH (08:10)
[2019-04-16] MEDS: AMLODIPINE BESYLATE 5 MG TAB PO SCH (08:11)
[2019-04-16] MEDS: FOLIC ACID 1 MG TAB PO SCH (08:11)
[2019-04-16] MEDS: THIAMINE HCL 100 MG TAB PO SCH (08:11)
[2019-04-16] MEDS: MAGNESIUM OXIDE 400 MG TAB PO SCH ×2 (08:12→20:12)
[2019-04-16] MEDS: SODIUM CHLORIDE 1 GM TABLET PO SCH ×2 (13:55→20:12)
[2019-04-16] MEDS: ACETAMINOPHEN 325 MG TAB PO PRN (13:56)
[2019-04-16 14:47] LABS: BUN Creatinine Ratio 20.6 (10-20); Calcium 9.2 mg/dl (8.5-10.1); Creatinine Clr Calc Pharmacy 101.9 ml/min; Potassium 3.8 mmol/L (3.5-5.1)
[2019-04-16] MEDS: FUROSEMIDE 20 MG TAB PO SCH (17:42)
--- NOTE | 2019-04-16 17:57 | Hospitalist Progress Note ---
Date of Service April 16, 2019 Assessment & Plan (1) Ambulatory dysfunction: Leg weakness improving Treatment of alcohol withdrawal, electrolyte abnormalities noted below -continue PT OT eval (2) Alcohol withdrawal: no signs of active withdrawal this AM -Alcohol withdrawal protocol with gabapentin, Ativan as needed (3) Hypomagnesemia: Magnesium supplementation (4) Hypokalemia: Continue monitoring and replacement (5) Chronic hyponatremia: likely SIADH Sodium 126 fluid restriction Nephrology consulted monitor (6) Hypertension: improved continue Amlodipine 10mg po daily DVT Prophylaxis -SCDs Full Code as per discussion with pt Does not follow with PCP for routine care Disposition pending PT/OT evaluation ordered Subjective ff up for weakness, hyponatremia Seen resting in bed, watching TV No distress States he feels improved overall Leg weakness improving Denies tremors, anxiety, hallucinations Denies other symptoms Review of Systems Review of Systems: All systems reviewed & are unremarkable except as noted in HPI & below Physical Exam Physical Exam: General- oriented x 3, not in distress, speaks in sentences with no effort or accessory muscle use Eyes- anicteric Neck- no JVD Lungs- clear sounds, no crackles bilaterally Heart- normal rate, regular rhythm; no murmurs Abdomen- normal bowel sounds, nondistended, soft, nontender Extremities- no pretibial edema, no calf tenderness Neuro- alert, oriented x 3; no gross focal neurologic deficits Skin- warm & dry Results & Data Vital Signs (Past 12 Hours) Vital Signs Temp Pulse Pulse Resp BP Pulse Ox 04/16/19 15:50 37.0 C 78 18 146/90 H 96 04/16/19 14:52 86 04/16/19 12:15 36.6 C 71 18 138/86 97 04/16/19 08:10 77 04/16/19 07:27 37.0 C 80 16 142/91 H 96 Laboratory Results Laboratory Results - last 24 hr 04/16/19 04/16/19 06:33 14:05 Sodium 126 L 128 L Potassium 3.5 3.8 Chloride 93 L 94 L Carbon Dioxide 24 26 Anion Gap 9.0 8.0 BUN 9 15 D Creatinine 0.45 L 0.70 Est Cr Clr Drug Dosing 158.5 101.9 Est GFR ( Amer) 148.7 124.0 Est GFR (Non-Af Amer) 128.3 107.0 BUN/Creatinine Ratio 20.3 H 20.6 H Glucose 90 86 Calcium 8.8 9.2 Magnesium 1.8 (1) Alcohol withdrawal Complication of substance-induced condition: with delirium Qualified Code(s): F10.231 - Alcohol dependence with withdrawal delirium
[2019-04-17 08:06] LABS: Calcium 8.4 mg/dl (8.5-10.1); Est GFR (African American) 142.4; Est GFR (Non-African American) 122.9; Magnesium 1.8 mg/dl (1.8-2.4); Potassium 3.4 mmol/L (3.5-5.1)
[2019-04-17] MEDS: AMLODIPINE BESYLATE 5 MG TAB PO SCH (08:53)
[2019-04-17] MEDS: THIAMINE HCL 100 MG TAB PO SCH (08:53)
[2019-04-17] MEDS: FOLIC ACID 1 MG TAB PO SCH (08:53)
[2019-04-17] MEDS: CEROVITE ADV FORMULA TAB PO SCH (08:53)
[2019-04-17] MEDS: SODIUM CHLORIDE 1 GM TABLET PO SCH ×2 (08:53→13:52)
[2019-04-17] MEDS: FUROSEMIDE 20 MG TAB PO SCH (08:54)
[2019-04-17] MEDS: MAGNESIUM OXIDE 400 MG TAB PO SCH (08:54)
--- NOTE | 2019-04-17 10:11 | Nephrology Consultation ---
Date of Consultation April 17, 2019 Assessment & Plan (1) Chronic hyponatremia: Patient with chronic hyponatremia likely due to SIADH. Admission sodium was around 126. I started him on Lasix 20 mg p.o. twice daily and salt tabs 1 g 3 times daily. His sodium is better at 129 today. Will check urine osmolality today. Monitor sodium daily. Ensure fluid restriction of 1200 mL daily. Patient can continue Lasix and salt tabs (2) Hypertension: Blood pressure is above target. Continue amlodipine 10 mg daily. Anticipate improvement with the addition of Lasix. (3) Hypokalemia: Due to chronic alcohol use and Lasix. We will start him on potassium chloride 40 mEq daily. History of Present Illness Reason for Consultation: Hyponatremia Requesting Physician: Romario Ratliff MD Attending Physician: Romario Ratliff MD History of Present Illness This is 53-year-old male with history of chronic alcohol abuse, chronic hyponatremia, chronic ambulatory dysfunction hypertension who was admitted on 04/12/2019 with ambulatory dysfunction and alcohol withdrawal. Patient recently hospitalized 3 weeks ago with hyponatremia. I saw him during that admission. His hyponatremia was likely consistent with SIADH. He was discharged on salt tablets 1 g 3 times daily and Lasix 20 mg p.o. twice daily. He never took his medications at home and did not show up for follow-up visit with the primary care physician. He is salt tablets and Lasix have been restarted. Sodium has improved to 129 today from 126 yesterday. He denies any shortness of breath but complains of weakness in his legs. He now ambulates with a walker. No shortness of breath. He is extremely hard of hearing. He was net -1.3 L yesterday. Allergies Allergy/AdvReac Type Severity Reaction Status Date / Time hydralazine AdvReac Intermediate Vomiting Verified 04/12/19 05:49 Penicillins AdvReac Mild TIRED Verified 04/12/19 05:49 Home Medications Home Medications Medication Instructions Recorded Confirmed Type amlodipine [Norvasc] 10 mg PO QAM 30 Days #60 tab 04/01/19 04/12/19 Rx raebtatytjrp-ibog-mjovx acid 1 tab PO QAM 30 Days #30 tab 04/01/19 04/12/19 Rx [Certavite-Antioxidant] Patient History Medical History Hypomagnesemia Weakness (Acute) Chronic hyponatremia (Acute) Anemia (Acute) Alcohol dependence (Acute) Alcohol abuse (Acute) Bilateral hip pain (Acute) Generalized weakness (Chronic) Alcohol withdrawal Alcohol abuse (Chronic) Adult failure to thrive (Chronic) Hyponatremia with decreased serum osmolality Onychocryptosis (Chronic) Hypokalemia DTs (delirium tremens) (Resolved) Abnormal EKG (Chronic) Alcohol intoxication Esophageal stenosis (Chronic) DVT prophylaxis Esophageal tear (Resolved) Aortic root dilation (Chronic) Dementia (Chronic) Subgaleal hemorrhage (Resolved) Chronic hyponatremia (Chronic) History of esophageal stricture (Chronic) History of esophageal dilatation (Chronic) Hx of fracture of hip (Chronic) Hypertension (Chronic) Alcoholism (Chronic) Ambulatory dysfunction (Chronic) Dysphagia (Chronic) "h/o esophageal stricture s/p dilation in past" Frequent falls (Chronic) Surgical History History of esophagogastroduodenoscopy (EGD) (Chronic) History of hip surgery (Chronic) s/p fall and fx Family History Other Cancer Hypertension Social History Preferred Language: Georgian Communication Ability: Effective Visual Impairment: No Limitations Hearing Ability: Hard of Hearing Author Agent Required: No Beliefs That Will Affect Care: None marital status: Single Current Living Situation: Alone Current Living Situation Comment: [employer] Other Information That Helps Us Care for You: No Feels Safe at Home: Yes Safety Concerns: Feels Safe At This Time Smoking Status: Former smoker Tobacco Type: cigarettes ; Second Hand Exposure: No ; Hx Alcohol Use: Yes Alcohol type: beer Alcohol Intake Frequency Comment: 7-10 beers a day, uncertain which kind of beer Hx Substance Use: No Review of Systems Review of Systems: All systems reviewed & are unremarkable except as noted in HPI & below Physical Exam Physical Exam: General exam: Appears comfortable, no acute distress HEENT: Pupils are equal and reactive to light Neck: No JVD, neck is supple trachea is midline Respiratory system: Clear breath sounds bilaterally. Gastrointestinal: Abdomen is soft, non distended, non tender, bowel sounds are present CVS: Regular rate and rhythm. No murmurs, rubs or gallops Musculoskeletal: No joint or muscle tenderness Extremities: Non tender, no edema, peripheral pulses are present Neuro: Oriented, no tremors, no focal neurological deficits Skin: No rashes Results & Data Vital Signs (Past 12 Hours) Vital Signs Temp Pulse Resp BP Pulse Ox 04/17/19 07:05 36.4 C L 73 18 156/96 H 97 04/17/19 04:23 36.8 C 83 18 159/99 H 97 04/16/19 23:21 36.6 C 93 H 19 136/94 98 Laboratory Results Laboratory Results - last 24 hr 04/16/19 04/17/19 14:05 06:39 Sodium 128 L 129 L Potassium 3.8 3.4 L Chloride 94 L 93 L Carbon Dioxide 26 23 Anion Gap 8.0 13.0 H BUN 15 D 9 D Creatinine 0.70 0.50 L Est Cr Clr Drug Dosing 101.9 140.0 Est GFR ( Amer) 124.0 142.4 Est GFR (Non-Af Amer) 107.0 122.9 BUN/Creatinine Ratio 20.6 H 18.0 Glucose 86 86 Calcium 9.2 8.4 L Magnesium 1.8
[2019-04-17] MEDS ORDERED: POTASSIUM CHLORIDE PWD 20 MEQ PACK PO SCH (10:15)
--- NOTE | 2019-04-17 13:22 | Hospitalist Progress Note ---
Date of Service April 17, 2019 Assessment & Plan (1) Ambulatory dysfunction: Leg weakness resolved ambulating well in the hallways no symptoms Treatment of alcohol withdrawal, electrolyte abnormalities noted below (2) Alcohol withdrawal: no signs of active withdrawal during admission while on Alcohol Withdrawal Protocol- Gabapentin taper -Alcohol withdrawal protocol with gabapentin, Ativan as needed (3) Hypomagnesemia: Magnesium supplementation given (4) Hypokalemia: replaced, monitor as outpatient (5) Chronic hyponatremia: likely SIADH Sodium 126 fluid restriction, Lasix with potassium, Salt tabs as recommended by Nephrology service repeat PRP on ff up with PCP April 19, 2019, then regularly ff up with Dr. Gee as outpatient in 1 week (6) Hypertension: improved continue Amlodipine 10mg po daily discussed plan of care in detail with patient strongly emphasized need to fill prescriptions, take them regularly, and ff up with PCP closely as advised , alcohol cessation, doing otherwise may lead to worsening of medical condition, complications, even he verbalized understanding and agreement coordinated discharge plans including transportation, medication coverage, ff up appointment with [facility] Chantell Torres patient declines alcohol rehab d/c home ff up with PCP 04/19/19 [facility] Dr. Gee in 1 week Subjective ff up for weakness, hyponatremia ambulating in the halls seen sitting up in bed, comfortable states he feels fine overall no tremors, anxiety, sweats, hallucinations walking with no problems no other symptoms Review of Systems Review of Systems: All systems reviewed & are unremarkable except as noted in HPI & below Physical Exam Physical Exam: General- oriented x 3, not in distress, speaks in sentences with no effort or accessory muscle use Eyes- anicteric Neck- no JVD Lungs- clear breath sounds , no rales/wheezing bilaterally Heart- normal rate, regular rhythm; no murmurs Abdomen- normal bowel sounds, nondistended, soft,no tenderness Extremities- no pretibial edema, no calf tenderness no tremors Neuro- alert, oriented x 3; no gross focal neurologic deficits Skin- warm & dry Results & Data Vital Signs (Past 12 Hours) Vital Signs Temp Pulse Pulse Resp BP Pulse Ox 04/17/19 10:56 36.7 C 78 20 149/93 H 96 04/17/19 07:05 36.4 C L 73 18 156/96 H 97 04/17/19 07:00 73 04/17/19 04:23 36.8 C 83 18 159/99 H 97 (1) Alcohol withdrawal Complication of substance-induced condition: with delirium Qualified Code(s): F10.231 - Alcohol dependence with withdrawal delirium
--- NOTE | 2019-04-18 08:05 | Discharge Summary ---
Date of Service April 18, 2019 Admission HPI Per Admitting Provider Pt is 53 y/o M with PMH alcoholism, HTN, chronic hyponatremia, h/o ambulatory dysfunction, h/o esophageal stenosis s/p dilation in past presented to ER with complaint of leg weakness. Patient reports this morning was trying to get off his couch and when he went to stand his legs felt very weak and felt like "Jell- O". Patient states drinks 8 8 beers a day, reports last drink was "a couple days ago". In ER was found to have some mild tremors reported and negative EtOH level. Was given total 2 mg Ativan, banana bag, clonidine patch was placed, Tylenol 1 g, KCl 40 mEq p.o. Patient with history of multiple hospitalizations secondary to alcohol withdrawal/ambulatory dysfunction. Most recent hospital admission 03/25/2019- 04/01/2019, during that admission had hyponatremia and had fluid restrictions was discharged on salt tablets and Lasix. He also had noted hypertension and was started on amlodipine and discharged on amlodipine. Patient reports did not take prescribed medications. He was scheduled a PCP follow-up with Dr Malloy, in which he did not keep. Denies hitting head, LOC, recent fall, fever/chills, diaphoresis, N/V/D/C, ROACH, dizziness, syncope, vision changes, neck pain, CP, SOB, orthopnea, palpitations, cough, sore throat, choking, otalgia, rhinorrhea, abdominal pain, paresthesias, extremity edema, rashes, back pain, loss control bowel or bladder, saddle paresthesias urinary symptoms. In ER he was attempted to try to get patient placed however reports could not secondary to patient's elevated BP Admission Exam Per Admitting Provider General: no acute distress, moderately developed, moderately nourished Head: normocephalic, atraumatic Eyes: PERRL, EOM's intact, conjunctiva non-injected, anicteric ENT: normal inspection external ears, nose, mucous membranes moist Neck: supple, trachea midline, non-tender, ROM intact Lungs: clear, no respiratory distress, no wheezing/rhonchi/rales CV: RRR, no murmur, no pretibial edema Abd: normal BS, soft, non-tender Ext: no cyanosis, no calf tenderness; flexion and extension of bilateral hips, knees, ankles intact bilaterally, non-tender to palpation, distal pulses intact. toenails thickened Neuro: Drowsy, but awakens to voice, oriented to person and place, no focal deficits noted Skin: warm, dry Principal Diagnosis AMBULATORY DYSFUNCTION, HYPERTENSION, HYPONATREMIA Discharge Exam General- oriented x 3, not in distress, speaks in sentences with no effort or accessory muscle use Eyes- anicteric Neck- no JVD Lungs- clear breath sounds , no rales/wheezing bilaterally Heart- normal rate, regular rhythm; no murmurs Abdomen- normal bowel sounds, nondistended, soft,no tenderness Extremities- no pretibial edema, no calf tenderness no tremors Neuro- alert, oriented x 3; no gross focal neurologic deficits Skin- warm & dry Discharge Data Allergies Allergy/AdvReac Type Severity Reaction Status Date / Time hydralazine AdvReac Intermediate Vomiting Verified 04/12/19 05:49 Penicillins AdvReac Mild TIRED Verified 04/12/19 05:49 Consultations 04/12/19 09:28 ED Decision to Admit Stat 04/12/19 15:39 Consult Case Management - Discharge Planning Routine 04/16/19 08:54 Consult Nephrology Routine Hospital Course (1) Ambulatory dysfunction: Leg weakness resolved ambulating well in the hallways no symptoms Treatment of alcohol withdrawal, electrolyte abnormalities noted below (2) Alcohol withdrawal: -no signs of active withdrawal during admission while on Alcohol Withdrawal Protocol- Gabapentin taper -Alcohol withdrawal protocol with gabapentin, Ativan as needed (3) Hypomagnesemia: Magnesium supplementation given monitor as outpatient (4) Hypokalemia: replaced, monitor as outpatient (5) Chronic hyponatremia: likely SIADH Sodium 126 fluid restriction, Lasix with potassium, Salt tabs as recommended by Nephrology service Na improved to 129 repeat PRP on ff up with PCP April 19, 2019, then regularly ff up with Dr. Gee as outpatient in 1 week (6) Hypertension: improved continue Amlodipine 10mg po daily strongly emphasized to take Amlodipine daily, otherwise uncontrolled HTN may lead to heart attack, stroke, kidney failure, he verbalized understanding and agreement discussed plan of care in detail with patient strongly emphasized need to fill prescriptions, take them regularly, and ff up with PCP closely as advised , alcohol cessation, doing otherwise may lead to worsening of medical condition, organ damage, complications, even he verbalized understanding and agreement coordinated discharge plans including transportation, medication coverage, ff up appointment with [facility] Custodian Chantell Disposition patient declines alcohol rehab d/c home ff up with PCP 04/19/[address] [facility] [address] Gee in 1 week Total Time Total Time Spent Total Time Spent (In Minutes): 45 minutes Discharge Plan Discharge Items Patient Disposition: Home - Self-Care Reason For Visit: ALCHOHOL WITHDRAWAL, AMBULATORY DYSFUNCTION Discharge Diagnosis: WEAKNESS, ELEVATED BLOOD PRESSURE Activity: As commented below Activity Comment: no heavy exertion, ambulate carefully at all times Lifting: Wait until after follow-up appointment Exercise/Sports: Wait until after follow-up appointment Driving/Machine Use: no driving Non-emergency contact: Primary Care Provider Call non-emergency contact if: you have any medication questions, your symptoms worsen and you have a fever Follow-up/Referrals: Noé Watson, [Physician] - 04/19/19 10:55 am Diet: Heart Healthy Addtl Attending Provider Instructions: YOUR NEW MEDICATIONS ARE: LASIX, SALT TABLETS, POTASSIUM - TO CORRECT LOW SODIUM AMLODIPINE- FOR BLOOD PRESSURE CONTROL THIAMINE, FOLATE- SUPPLEMENTS PLEASE TAKE YOUR MEDICATIONS DAILY PRESCRIBED. PLEASE FOLLOW UP WITH PRIMARY CARE PHYSICIAN DR. WATSON ( OUTLINED ABOVE). YOU WILL ALSO NEED BLOODWORK ON THAT DAY. IT IS VERY IMPORTANT THAT YOU FOLLOW WITH THE PRIMARY CARE PHYSICIAN CLOSELY ADVISED. NO ALCOHOL, NO SMOKING. Pending Studies at Discharge: Yes Studies:: BLOODWORK ON APRIL 19, 2019Monday WITH [facility] PRIMARY CARE PHYSICIAN NOTED ABOVE. Stand-Alone Forms: [facility] Medications and DC Order Prescriptions: New furosemide 20 mg Tablet 20 mg PO BID17 30 Days Qty: 60 RF: 0 sodium chloride 1 gram Tablet 1 g PO TID 30 Days Qty: 90 RF: 0 thiamine HCl (vitamin B1) [Vitamin B-1] 100 mg Tablet 100 mg PO QAM 30 Days Qty: 30 RF: 0 potassium chloride 20 mEq Packet 40 meq PO QAM 30 Days Qty: 60 RF: 0 magnesium oxide 400 mg (241.3 mg magnesium) Tablet 400 mg PO BID 30 Days Qty: 60 RF: 0 folic acid 1 mg Tablet 1 mg PO QAM 30 Days Qty: 30 RF: 0 Continued amlodipine [Norvasc] 5 mg Tablet 10 mg PO QAM 30 Days Qty: 60 RF: 0 Certavite-Antioxidant 18-400 mg-mcg Tablet 1 tab PO QAM 30 Days Qty: 30 RF: 0 Discharge Orders: Discharge Order (Routine); Ordered 04/17/19 Ordered By: Romario Ratliff Admission Data Admit Date/Time: 04/12/19 11:11 Attending Provider: Romario Ratliff Admit Provider: Romario Ratliff Primary Care Provider: PCP,NO Other Providers: Conner Santiago ; Adriano Gee Other Interventions: Discharge Summary Assessment (RN) Last Done: 04/17/19 13:47 DC Date/Time DO NOT enter until pt leaves facility: 04/17/19 14:06
== END 2019-04-17 14:06 | disposition home or self-care (01) | DRG 897 ==
LOC: ED 05:38 → 2S 11:11

== ENCOUNTER 2021-09-06 13:21 | Inpatient (IN) ==
--- NOTE | 2021-09-06 14:08 | Emergency Department Note ---
Impression & Plan Fracture of right olecranon process, Hyponatremia, Hypomagnesemia, Alcohol use disorder, Ambulatory dysfunction, Frequent falls ED Provider Note NAME: ANG MEDEL AGE: 56 SEX: M : 1965 ARRIVES VIA: Ambulance INFORMANT: patient, ED PROVIDER(S): Shree Hernandez MD Chief Complaint: Fall, elbow pain, difficulty with ambulation HPI: Patient presents from home where the patient resides by himself. Patient states that he suffered 2 falls today. Patient states that in the bathroom he fell but states that he did not injure anything at that time. EMS had reported a hole in the wall. The patient subsequently went to get his Meals on Wheels and had a fall at that time as well. Patient states he has no pain in his legs but does have significant discomfort and pain over the right elbow. Patient is right-hand dominant. Patient denies any LOC or head trauma. Patient does have a history of alcohol use and abuse with the patient has not used alcohol he says for 1 week. The patient denies any nausea vomiting chest pain or shortness of breath. Patient is vaccinated for COVID including booster. Patient does admit to smoking. Patient is not taking anything for pain prior to arrival. Patient states it is constant but worse with palpation. ROS: See HPI for pertinent positives and negatives. A total of 10 systems were reviewed and otherwise negative. Past medical history: See below Surgical history: See below Social history: See below Physical Exam: GENERAL: NAD, wearing glasses, wearing a mask, non-toxic. EYE EXAM: Normal conjunctiva. PERRL, no anisocoria and EOM's grossly intact w/o pain. NECK: Supple, no nuchal rigidity, no adenopathy, non-tender. No signs of meningismus. LUNGS: Clear to auscultation. Normal chest wall mechanics. HEART: NSR, no MRG. ABDOMEN: Abdomen soft, non-tender, normo-active bowel sounds, no masses, no rebound or guarding. BACK: No CVA TTP. SKIN: No rashes and no bruising. UPPER EXTREMITIES: Upper extremities are grossly normal. Significant contusion and associated swelling of the posterior aspect of the right elbow, decreased flexion and extension secondary to pain, compartments are soft and neurovascular intact distally, good DP pulse. LOWER EXTREMITIES: Grossly normal, no edema. Good range of motion at the hip knee and ankle with no obvious deformity or TTP. NEURO EXAM: A&O x3, cranial nerves II-XII grossly intact, normal speech, moves all 4 extremities on command but with limited range of motion right upper extremity secondary to pain. Differential diagnoses: Fracture, sprain, strain, dislocation, infection, dehydration, metabolic abnormality, hypo/hyperglycemia, electrolyte disturbance, anemia, hypoxia, cardiac sources, intracerebral event, toxicologic, neurologic, as well as other pathologies. Course: Patient was seen and evaluated the bedside. Full history physical exam was performed. EKG interpreted by me Sinus tachycardia, rate 105, normal intervals, normal axis. Imaging Studies: See Below Cardiac monitoring: An order was placed for continuous cardiac monitoring. The monitor shows a rate of 95 with sinus rhythm. Procedures: Splinting of right olecranon fracture Indication: Right olecranon fracture Verbal consent obtained. Risks and benefits were explained with the usual custo lowell discussion. The injured extremity was identified. The patient was prepped and measured for the placement of a right posterior upper extremity ortho-glass splint. Splint applied in the standard fashion over a layer of webril and secured using an elastic bandage. Set into a position of function. Normal neurovascular status after placement verified by me. The patient tolerated the procedure well and the care of the splint was discussed with the patient/family. No complications. MDM: Patient was seen due to concern for recurrence of falls difficulty with ambulation. The patient does have a known history of alcohol abuse but patient states he has not had a drink in 1 week. Blood work was obtained along with CT of the head and neck along with right elbow x-ray. Patient's blood work shows normal white count and hemoglobin. Platelet count is unremarkable. The patient's kidney function with no obvious abnormalities. Mild anion gap of 17 which may be secondary the patient's prior history of alcohol abuse. Alcohol is positive at 40 today. Patient was ordered magnesium and potassium for replacement. Patient does have hyponatremia. Given the patient's recurrence of falls hyponatremia and right olecranon fracture do not believe the patient is safe for home at this time. I did speak with on-call orthopedist Dr. Martinez who stated that patient may be placed in a posterior right upper extremity splint. This was completed. I did speak to the on-call hospitalist Hortencia hansen PA-C and the patient was admitted by Dr. Santiago. CT head and cervical spine negative. Does have mild hyponatremia, hypokalemia and hypomagnesemia. Potassium and mag ordered by hospitalist service. Past Med/Surg History Medical History (Updated 09/06/21 @ 17:29 by Shree Hernandez MD) Adult failure to thrive Alcohol use disorder Ambulatory dysfunction Anemia Anxiety Aortic root dilation Ataxia Bunion of unspecified foot Dementia DTs (delirium tremens) Esophageal tear Flat foot, acquired Frequent falls Generalized atherosclerosis Generalized weakness Hammer toe, acquired unspecified Hearing deficit Hereditary and idiopathic neuropathy, unspecified History of COVID-19 ? 07/17/20 per records History of esophageal dilatation last done 04/16/21 @ [facility] History of esophageal stricture Hx of fracture of hip Hypertension Hypokalemia Hypomagnesemia [facility] andreeadon[facility] 2500 cc fluid daily restriction was noted in records Sensorineural hearing loss (SNHL) of both ears Subgaleal hemorrhage Surgical History History of esophagogastroduodenoscopy (EGD) (~04/16/21) History of hip surgery s/p fall and fx Family History Other Cancer Hypertension Denies family history of Myocardial infarction Stroke Social History Smoking Status: Never smoker Tobacco Type: Cigarettes Second Hand Exposure: No; Hx Alcohol Use: Yes Alcohol type: beer Alcohol Intake Frequency Comment: 7-10 beers a day, uncertain which kind of beer Hx Substance Use: No Preferred Language: Urdu Communication Ability: Effective Visual Impairment: No Limitations Hearing Ability: Hard of Hearing Res Counselor Required: No Beliefs That Will Affect Care: None marital status: Single Current Living Situation: [facility] Current Living Situation Comment: [facility] Feels Safe at Home: Yes Assistive Devices: Glasses Allergies Allergies Allergy/AdvReac Type Severity Reaction Status Date / Time hydralazine Allergy Intermediate rapid drop Verified 05/12/21 08:48 in BP/Vomiting Penicillins AdvReac Mild TIRED Verified 05/12/21 08:48 Home Meds Home Medications Medication Instructions Recorded Confirmed folic acid 1 mg tablet 1 mg PO QAM 01/28/20 05/12/21 lisinopril 20 mg tablet 20 mg PO QAM 01/28/20 05/12/21 melatonin 3 mg capsule 6 mg PO HS PRN cap 01/28/20 05/12/21 multivitamin 1 tab PO QAM 01/28/20 05/12/21 thiamine HCl (vitamin B1) 100 mg 100 mg PO QAM 01/28/20 05/12/21 tablet potassium chloride 20 mEq 20 meq PO QAM 08/06/20 05/12/21 tablet,extended release(part/cryst) bisacodyl 10 mg rectal suppository 10 mg MI DAILY PRN 08/31/20 05/12/21 (Dulcolax (bisacodyl)) pantoprazole 40 mg tablet,delayed 40 mg PO HS 08/31/20 05/12/21 release (Protonix) sodium phosphates 19 gram-7 118 ml MI DAILY PRN 08/31/20 05/12/21 gram/118 mL enema (Fleet Enema) acetaminophen 325 mg tablet 325 mg PO QID PRN 10/20/20 05/12/21 fluoxetine 40 mg capsule 20 mg PO QAM 10/20/20 05/12/21 magnesium hydroxide 400 mg/5 mL 30 ml PO DAILY PRN 12/21/20 05/12/21 oral suspension (Milk of Magnesia) trazodone 50 mg tablet 25 mg PO HS 12/21/20 05/12/21 Omeprazole Suspension 10 ml PO UD 03/29/21 05/12/21 fluticasone propionate 220 2 puff INHALATION BID 03/29/21 05/12/21 mcg/actuation HFA aerosol inhaler (Flovent HFA) Results & Data (ED) Vital Signs Vital Signs - 24 hr 09/06/21 13:39 09/06/21 13:41 09/06/21 14:00 Temperature 36.6 C Temperature Source Oral Pulse Rate 116 H 104 H 103 H Pulse Rate from SpO2 Sensor 117 H Respiratory Rate 22 19 16 Blood Pressure 122/90 121/86 Blood Pressure Mean 100 97 Blood Pressure Position Lying Pulse Oximetry 98 98 Oxygen Delivery Method Room Air Sepsis Recent Fever Within 48 Hours No Sepsis New/Unexplained Change in Mental Status N/A Sepsis Action Taken by Nursing No Action Required 09/06/21 14:30 09/06/21 15:09 09/06/21 15:30 Temperature Temperature Source Pulse Rate 108 H 92 H 91 H Pulse Rate from SpO2 Sensor 97 H 91 H 92 H Respiratory Rate 15 19 18 Blood Pressure 96/76 L 96/72 L Blood Pressure Mean 82 80 Blood Pressure Position Pulse Oximetry 94 94 93 Oxygen Delivery Method Sepsis Recent Fever Within 48 Hours Sepsis New/Unexplained Change in Mental Status Sepsis Action Taken by [facility] Medications Current Medication List: was personally reviewed by me Laboratory Data Attestation: I reviewed the patient's lab results. Result diagrams: 09/06/21 14:06 09/06/21 15:52 Lab Results 09/06/21 09/06/21 09/06/21 Range/Units 14:06 14:06 14:06 WBC 10.66 (4.8-10.8) K/uL RBC 4.73 (4.7-6.1) M/uL Hgb 14.4 (14.0-18.0) g/dL Hct 40.5 L (42-52) % MCV 85.6 (80-100) fL MCH 30.4 (25-34) pg MCHC 35.6 (32-36) g/dL RDW Std Deviation 47.4 H (36.4-46.3) fL RDW Coeff of Luis 15.1 H (11.5-14.5) % Plt Count 163 (130-400) K/uL MPV 9.7 (7.4-10.4) fL Immature Gran % (Auto) 0.5 % Neut % (Auto) 79.6 % Lymph % (Auto) 7.4 % [place] % (Auto) 11.5 % Eos % (Auto) 0.7 % Baso % (Auto) 0.3 % Neut # (Auto) 8.49 H (1.4-6.5) K/uL Lymph # (Auto) 0.79 L (1.2-3.4) K/uL [place] # (Auto) 1.23 H (0.11-0.59) K/uL Eos # (Auto) 0.07 (0-0.5) K/uL Baso # (Auto) 0.03 (0-0.2) K/uL Immature Gran # (Auto) 0.05 H (0.00-0.02) K/uL Sodium 124 L (136-145) mmol/L Potassium (3.5-5.1) mmol/L Chloride 84 L (98-107) mmol/L Carbon Dioxide 23 (21-32) mmol/L Anion Gap 17 H (3-11) BUN 13 (6-23) mg/dl Creatinine 0.65 (0.6-1.4) mg/dl Est Cr Clr Drug Dosing 123.8 ml/min Est GFR ( Amer) 125.2 ml/min Est GFR (Non-Af Amer) 108.0 ml/min BUN/Creatinine Ratio 20.0 (10-20) Glucose 95 (70-99(Fasting)) mg/dl Calcium 9.2 (8.5-10.1) mg/dl Phosphorus 3.9 (2.5-4.9) mg/dl Magnesium (1.7-2.4) mg/dl Total Bilirubin 0.6 (0.2-1.0) mg/dl AST (13-39) U/L ALT 23 (7-52) U/L Alkaline Phosphatase 81 (34-104) U/L Total Protein 7.3 (6.0-8.3) gm/dl Albumin 4.0 (3.4-5.0) gm/dl Globulin 3.3 (2.5-4.0) gm/dl Albumin/Globulin Ratio 1.2 (0.9-2) TSH 0.809 (0.300-4.500) uIu/ml Ethyl Alcohol mg/dL (<10.0) mg/dl SARS-CoV-2, RNA, NAAT (NEGATIVE) 09/06/21 09/06/21 09/06/21 Range/Units 14:06 15:52 15:52 WBC (4.8-10.8) K/uL RBC (4.7-6.1) M/uL Hgb (14.0-18.0) g/dL Hct (42-52) % MCV (80-100) fL MCH (25-34) pg MCHC (32-36) g/dL RDW Std Deviation (36.4-46.3) fL RDW Coeff of Luis (11.5-14.5) % Plt Count (130-400) K/uL MPV (7.4-10.4) fL Immature Gran % (Auto) % Neut % (Auto) % Lymph % (Auto) % [place] % (Auto) % Eos % (Auto) % Baso % (Auto) % Neut # (Auto) (1.4-6.5) K/uL Lymph # (Auto) (1.2-3.4) K/uL [place] # (Auto) (0.11-0.59) K/uL Eos # (Auto) (0-0.5) K/uL Baso # (Auto) (0-0.2) K/uL Immature Gran # (Auto) (0.00-0.02) K/uL Sodium (136-145) mmol/L Potassium 2.7 L (3.5-5.1) mmol/L Chloride (98-107) mmol/L Carbon Dioxide (21-32) mmol/L Anion Gap (3-11) BUN (6-23) mg/dl Creatinine (0.6-1.4) mg/dl Est Cr Clr Drug Dosing ml/min Est GFR ( Amer) ml/min Est GFR (Non-Af Amer) ml/min BUN/Creatinine Ratio (10-20) Glucose (70-99(Fasting)) mg/dl Calcium (8.5-10.1) mg/dl Phosphorus 3.8 (2.5-4.9) mg/dl Magnesium 1.6 L (1.7-2.4) mg/dl Total Bilirubin (0.2-1.0) mg/dl AST 61 H (13-39) U/L ALT (7-52) U/L Alkaline Phosphatase (34-104) U/L Total Protein (6.0-8.3) gm/dl Albumin (3.4-5.0) gm/dl Globulin (2.5-4.0) gm/dl Albumin/Globulin Ratio (0.9-2) TSH (0.300-4.500) uIu/ml Ethyl Alcohol mg/dL 40.5 H (<10.0) mg/dl SARS-CoV-2, RNA, NAAT (NEGATIVE) 09/06/21 Range/Units 16:55 WBC (4.8-10.8) K/uL RBC (4.7-6.1) M/uL Hgb (14.0-18.0) g/dL Hct (42-52) % MCV (80-100) fL MCH (25-34) pg MCHC (32-36) g/dL RDW Std Deviation (36.4-46.3) fL RDW Coeff of Luis (11.5-14.5) % Plt Count (130-400) K/uL MPV (7.4-10.4) fL Immature Gran % (Auto) % Neut % (Auto) % Lymph % (Auto) % [place] % (Auto) % Eos % (Auto) % Baso % (Auto) % Neut # (Auto) (1.4-6.5) K/uL Lymph # (Auto) (1.2-3.4) K/uL [place] # (Auto) (0.11-0.59) K/uL Eos # (Auto) (0-0.5) K/uL Baso # (Auto) (0-0.2) K/uL Immature Gran # (Auto) (0.00-0.02) K/uL Sodium (136-145) mmol/L Potassium (3.5-5.1) mmol/L Chloride (98-107) mmol/L Carbon Dioxide (21-32) mmol/L Anion Gap (3-11) BUN (6-23) mg/dl Creatinine (0.6-1.4) mg/dl Est Cr Clr Drug Dosing ml/min Est GFR ( Amer) ml/min Est GFR (Non-Af Amer) ml/min BUN/Creatinine Ratio (10-20) Glucose (70-99(Fasting)) mg/dl Calcium (8.5-10.1) mg/dl Phosphorus (2.5-4.9) mg/dl Magnesium (1.7-2.4) mg/dl Total Bilirubin (0.2-1.0) mg/dl AST (13-39) U/L ALT (7-52) U/L Alkaline Phosphatase (34-104) U/L Total Protein (6.0-8.3) gm/dl Albumin (3.4-5.0) gm/dl Globulin (2.5-4.0) gm/dl Albumin/Globulin Ratio (0.9-2) TSH (0.300-4.500) uIu/ml Ethyl Alcohol mg/dL (<10.0) mg/dl SARS-CoV-2, RNA, NAAT NEGATIVE (NEGATIVE) Administered Medications Discontinued Medications Acetaminophen (Acetaminophen 500 Mg Tab) 1,000 mg PO NOW STA Stop: 09/06/21 14:16 Last Admin: 09/06/21 14:31 Dose: 1,000 mg Documented by: [id number] Morphine Sulfate (Morphine Sulfate 2 Mg/Ml Carp) 2 mg IV NOW STA Stop: 09/06/21 14:16 Last Admin: 09/06/21 14:32 Dose: 2 mg Documented by: [id number] Imaging Data Radiologist's Impression: Cervical Spine CT 09/06/21 14:[address] DOSE: 975.04 mGy.cm HISTORY: fall TECHNIQUE: Multiaxial CT images of the cervical spine were performed and reformatted in the sagittal and coronal plane without the use of contrast. A dose lowering technique was utilized adhering to the principles of ALARA. COMPARISON: Cervical spine CT 07/17/2019. FINDINGS: No fractures. No subluxation. Prevertebral soft tissues and the C1-C2 interval are intact. The C5-C6 vertebral bodies remain fused. There is moderate to severe disc space narrowing at C3-C4, C4-C5, and C6-C7. Straightening of the cervical spine. IMPRESSION: No fractures within the cervical spine. ACT 112: Negative or not required by law. Electronically signed by: Jigar Cassidy M.D. 09/06/2021 3:18 PM Chest X-Ray 09/06/21 14:14 XR chest 1V portable HISTORY: Fall. weakness COMPARISON: Chest 08/06/2020. FINDINGS: No pneumothorax. No pleural effusions. The heart is top normal in size. A few small left basilar linear densities favor subsegmental atelectasis or scarring. Otherwise, no focal lung consolidations to suggest pneumonia. No evidence for pulmonary edema. Old, healed left-sided rib fractures and an old distal left clavicle fracture remain unchanged. IMPRESSION: No significant change compared to the prior study. No acute process. ACT 112: Negative or not required by law. Electronically signed by: Jigar Cassidy M.D. 09/06/2021 3:06 PM Elbow X-Ray 09/06/21 14:14 XR elbow RT 2V CLINICAL HISTORY: fall, significant posterior contusion COMPARISON: Right forearm radiographs August 19, 2018. FINDINGS: There is evidence for a right elbow joint effusion. Note is made of an acute olecranon fracture with intra-articular extension. Fracture is displaced by approximately 9 mm. No additional fractures are identified. IMPRESSION: 1. Acute olecranon fracture with intra-articular extension. Fracture distracted by approximately 9 mm. 2. Associated right elbow joint effusion. ACT 112: Negative or not required by law. Electronically signed by: Kalin Roberts M.D. 09/06/2021 3:[address] 09/06/21 14:14 CT SCAN OF THE BRAIN WITHOUT IV CONTRAST CLINICAL HISTORY: Fall. COMPARISON STUDY: CT of the brain dated 08/02/2019. TECHNIQUE: Unenhanced axial CT scan of the brain is performed from the vertex to the skull base. A dose lowering technique was utilized adhering to the francis manuelples of [place]. FINDINGS: Brain parenchyma: There are age-related involutional changes noting mild subcortical and periventricular microangiopathic change. There is no hemorrhage, mass effect, or evidence of acute territorial ischemia by CT criteria. A chronic lacunar infarct is noted in the left caudate head. Yun-white matter differentiation is preserved. No extra-axial fluid collection is seen. Mineralization is noted in the basal ganglia. Ventricles, sulci, cisterns: Prominent secondary to involutional change. Intracranial vasculature: There is atherosclerotic calcification of the c avernous carotid and vertebral arteries. Calvarium: The skeletal structures are osteopenic. No depressed calvarial fracture is identified. Sinuses and mastoids: The visualized paranasal sinuses are clear. The mastoid air cells are well pneumatized. Orbits: The bony orbits are grossly intact. IMPRESSION: There is no hemorrhage, mass effect, or evidence of acute territorial ischemia by CT criteria. ACT 112: Negative or not required by law. Electronically signed by: Froy Lau M.D. 09/06/2021 3:19 PM Discharge Plan Visit Data Chief Complaint: Elbow Injury/Pain ED Provider: Shree Hernandez Discharge Problem: Fracture of right olecranon process, Hyponatremia, Hypomagnesemia, Alcohol use disorder, Ambulatory dysfunction, Frequent falls Forms Stand Alone Forms: [facility] Prescriptions Prescriptions: No Action folic acid 1 mg tablet 1 mg PO QAM RF: 0 lisinopril 20 mg tablet 20 mg PO QAM RF: 0 melatonin 3 mg capsule 6 mg PO HS PRN (Reason: Sleep) RF: 0 multivitamin Tablet 1 tab PO QAM RF: 0 thiamine HCl (vitamin B1) 100 mg tablet 100 mg PO QAM RF: 0 potassium chloride 20 mEq tablet,ER particles/crystals 20 meq PO QAM RF: 0 bisacodyl [Dulcolax (bisacodyl)] 10 mg Suppository 10 mg MI DAILY PRN (Reason: Constipation) RF: 0 pantoprazole [Protonix] 40 mg Tablet,Delayed Release (Dr/Ec) 40 mg PO HS RF: 0 Fleet Enema 19-7 gram/118 mL Enema 118 ml MI DAILY PRN (Reason: Constipation) RF: 0 Flovent HFA 220 mcg/actuation Hfa Aerosol Inhaler 2 puff INHALATION BID RF: 0 Omeprazole Suspension 10 ml PO UD RF: 0 fluoxetine 40 mg Capsule 20 mg PO QAM RF: 0 acetaminophen 325 mg Tablet 325 mg PO QID PRN (Reason: pain/fever) RF: 0 trazodone 50 mg Tablet 25 mg PO HS RF: 0 magnesium hydroxide [Milk of Magnesia] 400 mg/5 mL Suspension 30 ml PO DAILY PRN (Reason: Constipation) RF: 0 Referrals Referrals: Yoni Garg MD [Physician] - Discharge Problem: Fracture of right olecranon process Qualifiers: Encounter type: initial encounter Fracture type: closed Qualified Code(s): S52 .021A - Displaced fracture of olecranon process without intraarticular extension of right ulna, initial encounter for closed fracture
[2021-09-06] MEDS ORDERED: ACETAMINOPHEN 500 MG TAB PO STA (14:15)
[2021-09-06] MEDS ORDERED: MoRPHine SULFATE 2 MG/ML CARP IV STA (14:15)
[2021-09-06 14:30] LABS: Basophils # (auto) 0.03 K/uL (0-0.2); Basophils % (auto) 0.3 %; Eosinophils # (auto) 0.07 K/uL (0-0.5); Eosinophils % (auto) 0.7 %; Hematocrit (blood only) 40.5 % (42-52); Hemoglobin 14.4 g/dL (14.0-18.0); Immature Granulocytes # (auto) 0.05 K/uL (0.00-0.02); Immature Granulocytes % (auto) 0.5 %; Lymphocytes # (auto) 0.79 K/uL (1.2-3.4); Lymphocytes % (auto) 7.4 %; Mean Corpuscular Hemoglobin 30.4 pg (25-34); Mean Corpuscular Hgb Conc 35.6 g/dL (32-36); Mean Corpuscular Volume 85.6 fL (80-100); Mean Platelet Volume 9.7 fL (7.4-10.4); Monocytes # (auto) 1.23 K/uL (0.11-0.59); Monocytes % (auto) 11.5 %; Neutrophils # (auto) 8.49 K/uL (1.4-6.5); Neutrophils % (auto) 79.6 %; Platelet Count 163 K/uL (130-400); RDW Coefficient of Variation 15.1 % (11.5-14.5); RDW Standard Deviation 47.4 fL (36.4-46.3); Red Blood Count 4.73 M/uL (4.7-6.1); White Blood Count 10.66 K/uL (4.8-10.8)
--- NOTE | 2021-09-06 15:03 | XRay Report ---
XR elbow RT 2V CLINICAL HISTORY: fall, significant posterior contusion COMPARISON: Right forearm radiographs August 19, 2018. FINDINGS: There is evidence for a right elbow joint effusion. Note is made of an acute olecranon fra cture with intra-articular extension. Fracture is displaced by approximately 9 mm. No additional frac tures are identified. IMPRESSION: 1. Acute olecranon fracture with intra-articular extension. Fracture distracted by approximately 9 mm . 2. Associated right elbow joint effusion. ACT 112: Negative or not required by law. Electronically signed by: Kalin Roberts M.D. 09/06/2021 3:01 PM
--- NOTE | 2021-09-06 15:08 | XRay Report ---
XR chest 1V portable HISTORY: Fall. weakness COMPARISON: Chest 08/06/2020. FINDINGS: No pneumothorax. No pleural effusions. The heart is top normal in size. A few small left ba silar linear densities favor subsegmental atelectasis or scarring. Otherwise, no focal lung consolida tions to suggest pneumonia. No evidence for pulmonary edema. Old, healed left-sided rib fractures and an old distal left clavicle fracture remain unchanged. IMPRESSION: No significant change compared to the prior study. No acute process. ACT 112: Negative or not required by law. Electronically signed by: Jigar Cassidy M.D. 09/06/2021 3:06 PM
--- NOTE | 2021-09-06 15:19 | CT Scan Report ---
CERVICAL SPINE CT CT DOSE: 975.04 mGy.cm HISTORY: fall TECHNIQUE: Multiaxial CT images of the cervical spine were performed and reformatted in the sagittal and coronal plane without the use of contrast. A dose lowering technique was utilized adhering to th e principles of ALARA. COMPARISON: Cervical spine CT 07/17/2019. FINDINGS: No fractures. No subluxation. Prevertebral soft tissues and the C1-C2 interval are intact. The C5-C6 vertebral bodies remain fused. There is moderate to severe disc space narrowing at C3-C4, C 4-C5, and C6-C7. Straightening of the cervical spine. IMPRESSION: No fractures within the cervical spine. ACT 112: Negative or not required by law. Electronically signed by: Jigar Cassidy M.D. 09/06/2021 3:18 PM
--- NOTE | 2021-09-06 15:20 | CT Scan Report ---
CT SCAN OF THE BRAIN WITHOUT IV CONTRAST CLINICAL HISTORY: Fall. COMPARISON STUDY: CT of the brain dated 08/02/2019. TECHNIQUE: Unenhanced axial CT scan of the brain is performed from the vertex to the skull base. A do se lowering technique was utilized adhering to the principles of ALARA. FINDINGS: Brain parenchyma: There are age-related involutional changes noting mild subcortical and periventric ular microangiopathic change. There is no hemorrhage, mass effect, or evidence of acute territorial i schemia by CT criteria. A chronic lacunar infarct is noted in the left caudate head. Yun-white matte r differentiation is preserved. No extra-axial fluid collection is seen. Mineralization is noted in t he basal ganglia. Ventricles, sulci, cisterns: Prominent secondary to involutional change. Intracranial vasculature: There is atherosclerotic calcification of the cavernous carotid and vertebr al arteries. Calvarium: The skeletal structures are osteopenic. No depressed calvarial fracture is identified. Sinuses and mastoids: The visualized paranasal sinuses are clear. The mastoid air cells are well pneu matized. Orbits: The bony orbits are grossly intact. IMPRESSION: There is no hemorrhage, mass effect, or evidence of acute territorial ischemia by CT nelliet félix. ACT 112: Negative or not required by law. Electronically signed by: Froy Lau M.D. 09/06/2021 3:19 PM
[2021-09-06 15:21] LABS: Albumin Globulin Ratio 1.2 (0.9-2); Bilirubin,Total 0.6 mg/dl (0.2-1.0); Calcium 9.2 mg/dl (8.5-10.1); Creatinine Clr Calc Pharmacy 123.8 ml/min; Est GFR (African American) 125.2 ml/min; Globulin 3.3 gm/dl (2.5-4.0); Phosphorus 3.9 mg/dl (2.5-4.9); Total Protein 7.3 gm/dl (6.0-8.3)
[2021-09-06] MEDS ORDERED: SODIUM CHLORIDE 0.9% 1000ML 1,000 ML IV STA ×2 (16:16→16:34)
[2021-09-06 16:24] LABS: Potassium 2.7 mmol/L (3.5-5.1)
[2021-09-06] MEDS ORDERED: GABAPENTIN 1200MG ALCOHOL WITHDRAWAL LOAD PO STA (16:24)
[2021-09-06] MEDS ORDERED: POTASSIUM CHLORIDE 40 MEQ in SODIUM CHLORIDE 0.9% 1000ML 1,000 ML IV STA (16:31)
--- NOTE | 2021-09-06 16:31 | History & Physical Report ---
Date of Service September 06, 2021 Assessment & Plan (1) Frequent falls: (2) Ambulatory dysfunction: (3) Fracture of olecranon process, right, closed: Plan: This is a 56yo M with a PMH of chronic alcoholism, hypertension, chronic hyponatremia, history of ambulatory dysfunction, history of esophageal stenosis status post dilation who presents after multiple falls this morning and was found to have R olecranon fracture as well as multiple electrolyte disturbances in setting of ongoing etoh abuse. Two falls this morning. 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 Fracture distracted by approximately 9 mm. Associated right elbow joint effusion ED provider discussed with Dr. Martinez, who recommended splinting and orthopedic evaluation No acute findings in CT head, cervical spine CT or CXR Fall precautions, PT/OT evaluation, pain control Patient no longer feels safe at home due to unsteadiness on feet - interested in SNF placement (4) Alcohol use disorder: Plan: Ongoing etoh abuse, denying drink for over a week but etoh level 40 today. Also with component of dementia 2/2 longstanding etoh use History of DTs in setting of withdrawal in the past Gabapentin and at risk IV ativan withdrawal protocol Banana bag, Thiamine and Folic acid in AM (5) Chronic hyponatremia: Plan: Sodium of 124 in setting of chronic etoh use, non-compliance with home salt tabs - baseline Na closer to 130 Serum and urine osm pending, appears clinically dry During previous admissions, nephro has recommended sodium tablets, fluid restruction of 1200 ml Given IV fluids in ED, follow labwork. Repeat BMP at 1999 (6) Hypomagnesemia: Plan: Initial Mg 1.6. Replaced. Repeat lab in AM (7) Hypokalemia: Plan: Initial K 2.7. Replaced. Repeat evening BMP (8) Dysphagia: Plan: H/o esophageal stricture in the past s/p dilation by GI. Need pill crushed, has tolerated soft diet previously without issue. Aspiration precautions DVT Ppx: SCDs for now - h/o recurrent falls Code status: FULL PCP: [facility] Dispo: Admitted to PCU Patient seen in collaboration with Dr. Santiago. Please see addendum. History of Present Illness Chief Complaint: Fall at home Primary Care Provider: NO PCP This is a 56yo M with a PMH of chronic alcoholism, hypertension, chronic hyponatremia, history of ambulatory dysfunction, history of esophageal stenosis status post dilation who presents after multiple falls this morning. Patient resides at [facility] where he lives alone. Used to ambulate with walker but has not had one for quite some time. Initially fell in his bathroom after urinating but denies any head trauma or loss of consciousness. A half an hour later, patient was ambulating towards front door to hop pick[employer] order when he fell again, landing on right arm. Denies any preceding lightheadedness, chest pain or shortness of breath. Has been feeling significantly less steady on his feet for the past week. Was previously in a snf and desires a higher level of care again. Does not feel safe living independently. Has not been taking any of home medications or supplements. Denies any alcohol use since last week but cannot quantify amount. States that appetite is okay and unchanged. Endorses continued right arm pain that went from a 9/10 to a 7/10 after pain medication in ED. No fever, chills, lightheadedness, visual changes, chest pain, shortness of breath, nausea, vomiting, abdominal pain, dysuria, diarrhea or constipation. Allergies Allergy/AdvReac Type Severity Reaction Status Date / Time hydralazine Allergy Intermediate rapid drop Verified 05/12/21 08:48 in BP/Vomiting Penicillins AdvReac Mild TIRED Verified 05/12/21 08:48 Past Med/Surg History Medical History (Updated 09/06/21 @ 17:29 by Shree Hernandez MD) Adult failure to thrive Alcohol use disorder Ambulatory dysfunction Anemia Anxiety Aortic root dilation Ataxia Bunion of unspecified foot Dementia DTs (delirium tremens) Esophageal tear Flat foot, acquired Frequent falls Generalized atherosclerosis Generalized weakness Hammer toe, acquired unspecified Hearing deficit Hereditary and idiopathic neuropathy, unspecified History of COVID-19 ? 07/17/20 per records History of esophageal dilatation last done 04/16/21 @ [facility] History of esophageal stricture Hx of fracture of hip Hypertension Hypokalemia Hypomagnesemia alf resident [facility] 2500 cc fluid daily restriction was noted in records Sensorineural hearing loss (SNHL) of both ears Subgaleal hemorrhage Surgical History History of esophagogastroduodenoscopy (EGD) (~04/16/21) History of hip surgery s/p fall and fx Family History Other Cancer Hypertension Denies family history of Myocardial infarction Stroke Social History Smoking Status: Never smoker Tobacco Type: Cigarettes Second Hand Exposure: No; Hx Alcohol Use: Yes Alcohol type: beer Alcohol Intake Frequency Comment: 7-10 beers a day, uncertain which kind of beer Hx Substance Use: No Preferred Language: [place]se Communication Ability: Effective Visual Impairment: No Limitations Hearing Ability: Hard of Hearing Manager Of Housekeeping Required: No Beliefs That Will Affect Care: None marital status: Single Current Living Situation: Retirement Current Living Situation Comment: [facility] Feels Safe at Home: Yes Assistive Devices: Glasses Review of Systems Review of Systems: At least ten systems reviewed and negative except as noted in the HPI. Physical Exam Physical Exam: General Appearance: WD/WN, vitals as above, lying in bed, pleasant, poorly groomed, conversing without issue Head: normocephalic, atraumatic Eyes: normal inspection, PERRL, conjunctivae normal, anicteric sclerae ENT: hard of hearing, external ear and nose normal, dry mucous membranes of oropharynx Neck: normal visual inspection, trachea midline, no thyromegaly Respiratory: normal respiratory effort, lungs clear to auscultation, no wheeze, rales, rhonchi. No accessory muscle use Cardiovascular: regular rate, rhythm, no murmur, normal peripheral pulses, no BLE edema. Vessels: no JVD Chest: normal inspection of chest Abdomen/GI: normal bowel sounds, soft, nontender, no hepatosplenomegaly Extremities/Musculoskeletal: +RUE in splint. Distal RUE NVI. No cyanosis or clubbing, extremities motor strength 5/5 Neurologic: PERRL, EOMI, accommodation nl, no face palsy, no dysarthria, CN's II-XI intact bilaterally and moves all extremities Psychiatric: A+Ox3, + poor insight and judgement Skin: no rashes, normal color, warm/dry Results & Data Results & Data ([facility]) Vital Signs (Past 12 Hours) Vital Signs Temp Pulse Resp BP Pulse Ox 09/06/21 15:30 91 H 18 96/72 L 93 09/06/21 15:09 92 H 19 94 09/06/21 14:30 108 H 15 96/76 L 94 09/06/21 14:00 103 H 16 121/86 09/06/21 13:41 36.6 C 104 H 19 122/90 98 09/06/21 13:39 116 H 22 98 Laboratory Results Short CBC 09/06/21 Range/Units 14:06 WBC 10.66 (4.8-10.8) K/uL Hgb 14.4 (14.0-18.0) g/dL Hct 40.5 L (42-52) % Plt Count 163 (130-400) K/uL BMP 09/06/21 09/06/21 14:06 15:52 Sodium 124 L Potassium 2.7 L Chloride 84 L Carbon Dioxide 23 BUN 13 Creatinine 0.65 Glucose 95 Calcium 9.2 Liver Function 09/06/21 09/06/21 Range/Units 14:06 15:52 Total Bilirubin 0.6 (0.2-1.0) mg/dl AST 61 H (13-39) U/L ALT 23 (7-52) U/L Alkaline Phosphatase 81 (34-104) U/L Albumin 4.0 (3.4-5.0) gm/dl Diagnostic Findings Cervical Spine CT 09/06/21 14:[address] DOSE: 975.04 mGy.cm HISTORY: fall TECHNIQUE: Multiaxial CT images of the cervical spine were performed and reformatted in the sagittal and coronal plane without the use of contrast. A dose lowering technique was utilized adhering to the principles of ALARA. COMPARISON: Cervical spine CT 07/17/2019. FINDINGS: No fractures. No subluxation. Prevertebral soft tissues and the C1-C2 interval are intact. The C5-C6 vertebral bodies remain fused. There is moderate to severe disc space narrowing at C3-C4, C4-C5, and C6-C7. Straightening of the cervical spine. IMPRESSION: No fractures within the cervical spine. ACT 112: Negative or not required by law. Electronically signed by: Jigar Cassidy M.D. 09/06/2021 3:18 PM Chest X-Ray 09/06/21 14:14 XR chest 1V portable HISTORY: Fall. weakness COMPARISON: Chest 08/06/2020. FINDINGS: No pneumothorax. No pleural effusions. The heart is top normal in size. A few small left basilar linear densities favor subsegmental atelectasis or scarring. Otherwise, no focal lung consolidations to suggest pneumonia. No evidence for pulmonary edema. Old, healed left-sided rib fractures and an old distal left clavicle fracture remain unchanged. IMPRESSION: No significant change compared to the prior study. No acute process. ACT 112: Negative or not required by law. Electronically signed by: Jigar Cassidy M.D. 09/06/2021 3:06 PM Elbow X-Ray 09/06/21 14:14 XR elbow RT 2V CLINICAL HISTORY: fall, significant posterior contusion COMPARISON: Right forearm radiographs August 19, 2018. FINDINGS: There is evidence for a right elbow joint effusion. Note is made of an acute olecranon fracture with intra-articular extension. Fracture is displaced by approximately 9 mm. No additional fractures are identified. IMPRESSION: 1. Acute olecranon fracture with intra-articular extension. Fracture distracted by approximately 9 mm. 2. Associated right elbow joint effusion. ACT 112: Negative or not required by law. Electronically signed by: Kalin Roberts M.D. 09/06/2021 3:[address] 09/06/21 14:14 CT SCAN OF THE BRAIN WITHOUT IV CONTRAST CLINICAL HISTORY: Fall. COMPARISON STUDY: CT of the brain dated 08/02/2019. TECHNIQUE: Unenhanced axial CT scan of the brain is performed from the vertex to the skull base. A dose lowering technique was utilized adhering to the principles of ALARA. FINDINGS: Brain parenchyma: There are age-related involutional changes noting mild subcortical and periventricular microangiopathic change. There is no hemorrhage, mass effect, or evidence of acute territorial ischemia by CT criteria. A chronic lacunar infarct is noted in the left caudate head. Yun-white matter differentiation is preserved. No extra-axial fluid collection is seen. Mineralization is noted in the basal ganglia. Ventricles, sulci, cisterns: Prominent secondary to involutional change. Intracranial vasculature: There is atherosclerotic calcification of the cavernous carotid and vertebral arteries. Calvarium: The skeletal structures are osteopenic. No depressed calvarial fracture is identified. Sinuses and mastoids: The visualized paranasal sinuses are clear. The mastoid air cells are well pneumatized. Orbits: The bony orbits are grossly intact. IMPRESSION: There is no hemorrhage, mass effect, or evidence of acute territorial ischemia by CT criteria. ACT 112: Negative or not required by law. Electronically signed by: Froy Lau M.D. 09/06/2021 3:19 PM ECG Additional Comments: Sinus tachycardia with Premature atrial complexes Nonspecific ST abnormality Code Status & VTE Plan VTE Prophylaxis Plan VTE Prophylaxis will be ordered: Yes Supervising Physician Co-Signing Physician Notes Patient is a 56-year-old male with history of chronic alcoholism, chronic hyponatremia, ambulatory dysfunction and other medical problems presents with history of fall this morning. Patient fell this morning after urinating bathroom but denies any head trauma, loss of consciousness. Patient fell on his right arm resulting in significant pain since the fall. Patient denies any chest pain, shortness of breath, dizziness. He states his last alcohol drink was 4 days ago. Denies any numbness or tingling in fingers. Please review HPI for complete details of presentation. Blood work suggestive of hyponatremia 124, hypokalemia 2.7, hypochloremia 84, anion gap 17, hypomagnesemia 1.6, AST elevated 61. Alcohol level noted to be 40.5. Pending studies suggestive of acute on chronic fracture with intra-articular extension. Also noted right elbow joint effusion. EKG showed sinus tachycardia with premature atrial complexes, nonspecific ST abnormality. QTC 489. Exam patient is thin, chronically appearing, no apparent distress, normocephalic atraumatic, + hearing impairment, EOMI, normal breath sounds, clear to auscultation, S1-S2, no murmur, trace pedal edema present, right upper extremity in splint, abdomen soft, nontender, normal bowel sounds, alert, awake, oriented, grossly no focal deficits. Patient is admitted for management of right olecranon fracture seco ndary to falls, ambulatory dysfunction, alcohol use disorder. Appreciate orthopedics input. Pain control. PT OT, fall precautions requested. Monitor for alcohol withdrawal. Continue gabapentin protocol, thiamine, folic acid. Monitor sodium levels. Serum, urine osmolality, urine sodium levels requested. Reassess sodium levels after IV fluids given clinically dehydrated. Consider nephrology evaluation if needed. Replace electrolytes as needed. I personally reviewed the record. Patient is interviewed and examined at bedside. Patient's care is coordinated with Hortencia Gonzalez PA-C. Please refer to the documentation above for details of patient's presentation and for discussion of other issues.
[2021-09-06] MEDS ORDERED: GABAPENTIN 600 MG TAB PO STA (16:48)
[2021-09-06 16:49] LABS: Magnesium 1.6 mg/dl (1.7-2.4); Phosphorus 3.8 mg/dl (2.5-4.9)
--- NOTE | 2021-09-06 16:51 | Electrocardiogram Report ---
Test Reason : Blood Pressure : / mmHG Vent. Rate : 105 BPM Atrial Rate : 105 BPM P-R Int : 170 ms QRS Dur : 092 ms QT Int : 370 ms P-R-T Axes : 071 -05 083 degrees QTc Int : 489 ms Sinus tachycardia with Premature atrial complexes Nonspecific ST abnormality Abnormal ECG When compared with ECG of 02-AUG-2019 15:03, Premature atrial complexes are now Present Nonspecific T wave abnormality now evident in Lateral leads Confirmed by Rajesh Stallworth ([id number]) on 09/06/2021 4:51:16 PM Referred By: Confirmed By:Sridhar Stallworth
[2021-09-06] MEDS ORDERED: POTASSIUM CHLORIDE 20 MEQ/15 ML UDC PO STA (17:16)
[2021-09-06] MEDS ORDERED: MAGNESIUM SULFATE / D5W 1 GM/100 ML BAG IV ONE (17:30)
[2021-09-06 18:16] LABS: Appearance Urine Clear (Clear); Bilirubin Urine Negative (Negative); Blood Urine Negative (Negative); Color Urine Yellow; Glucose Urine UA Negative (Negative); Ketones Urine 1+ (Negative); Leukocyte Esterase Urine Negative (Negative); Nitrite Urine Negative (Negative); Protein Urine Negative (Negative); Specific Gravity Urine 1.018 (1.000-1.030); Urobilinogen Urine Negative (Negative); pH Urine 6.5 (4.5-7.5)
[2021-09-06] MEDS: POTASSIUM CHLORIDE / WTR 10 MEQ/100 ML PLCT IV SCH ×4 (19:27→23:19)
[2021-09-06] MEDS ORDERED: POLYETHYLENE (MIRALAX) 17 GM PACK PO PRN (22:21)
[2021-09-06] MEDS ORDERED: ONDANSETRON INJ 2 MG/ML 2 ML VIAL IV PRN (22:21)
[2021-09-06] MEDS ORDERED: LORazepam 2 MG/1 ML VIAL IV PRN (22:21)
[2021-09-06] MEDS ORDERED: GABAPENTIN 600 MG TAB PO ONE (22:21)
[2021-09-06] MEDS ORDERED: GABAPENTIN 600 MG TAB PO SCH (22:30)
[2021-09-06] MEDS ORDERED: MULTI-VITAMIN INFUSION 10 ML, THIAMINE HCL 100 MG, FOLIC ACID 1 MG in SODIUM CHLORIDE 0... IV ONE (23:00)
[2021-09-06] MEDS: FOLIC ACID 1 MG TAB PO SCH (23:13)
[2021-09-06] MEDS: THIAMINE HCL 100 MG TAB PO SCH (23:14)
[2021-09-06 23:20] LABS: BUN Creatinine Ratio 17.9 (10-20); Calcium 7.7 mg/dl (8.5-10.1); Creatinine Clr Calc Pharmacy 143.7 ml/min; Est GFR (African American) 133.1 ml/min; Est GFR (Non-African American) 114.8 ml/min; Potassium 3.7 mmol/L (3.5-5.1)
[2021-09-06] MEDS: ACETAMINOPHEN 325 MG TAB PO PRN (23:34)
[2021-09-07] MEDS: GABAPENTIN 600MG Q6H DOSE PO SCH ×2 (00:30→05:25)
[2021-09-07] MEDS: traMADol HCL 50 MG TABLET PO PRN ×3 (04:18→20:51)
[2021-09-07 05:53] LABS: Hematocrit (blood only) 34.4 % (42-52); Hemoglobin 11.8 g/dL (14.0-18.0); Mean Corpuscular Hemoglobin 30.3 pg (25-34); Mean Corpuscular Hgb Conc 34.3 g/dL (32-36); Mean Corpuscular Volume 88.2 fL (80-100); Mean Platelet Volume 9.4 fL (7.4-10.4); Platelet Count 148 K/uL (130-400); RDW Coefficient of Variation 15.5 % (11.5-14.5); RDW Standard Deviation 49.9 fL (36.4-46.3); White Blood Count 5.98 K/uL (4.8-10.8)
[2021-09-07 06:25] LABS: BUN Creatinine Ratio 13.7 (10-20); Calcium 7.6 mg/dl (8.5-10.1); Creatinine Clr Calc Pharmacy 157.8 ml/min; Est GFR (African American) 138.3 ml/min; Est GFR (Non-African American) 119.3 ml/min; Magnesium 1.6 mg/dl (1.7-2.4); Phosphorus 2.1 mg/dl (2.5-4.9); Potassium 3.4 mmol/L (3.5-5.1)
[2021-09-07] MEDS ORDERED: POTASSIUM PHOS 3 MMOL/1 ML INFUSION IV STA (10:08)
[2021-09-07] MEDS ORDERED: POTASSIUM PHOSPHATE 30 MMOL in SODIUM CHLORIDE 0.9% 500 ML IV ONE (10:45)
[2021-09-07] MEDS: THIAMINE HCL 100 MG TAB PO SCH (11:36)
[2021-09-07] MEDS: FOLIC ACID 1 MG TAB PO SCH (11:36)
[2021-09-07] MEDS ORDERED: GABAPENTIN 600 MG TAB PO SCH (12:30)
[2021-09-07] MEDS: GABAPENTIN 600MG Q8H DOSE PO SCH ×2 (14:46→21:48)
--- NOTE | 2021-09-07 16:28 | Orthopedic Consultation ---
Date of Service September 07, 2021 Assessment & Plan (1) Fracture of right olecranon process: He was admitted to the hospitalist service. I educated him on this fracture and treatment options. Will discuss with Dr. Martinez about possible ORIF of the olecranon. Continued splint to the RUE. History of Present Illness Reason for Consultation: . Requesting Physician: . Attending Physician: Wolf Fleming MD . 56 year old right hand dominant patient admitted to the hospitalist service last night. He said he had a fall yesterday while in the bathroom and then was walking to the door for meals on wheels and fell again injuring his elbow. He has had multiple falls in the past and has fractured his hips and ribs. No other complaints at this time. He did mention that he was walking to the store the other day and got "winded", but denies chest pain. Allergies Allergy/AdvReac Type Severity Reaction Status Date / Time hydralazine Allergy Intermediate rapid drop Verified 05/12/21 08:48 in BP/Vomiting Penicillins AdvReac Mild TIRED Verified 05/12/21 08:48 Past Med/Surg History Medical History Adult failure to thrive Alcohol use disorder Ambulatory dysfunction Anemia Anxiety Aortic root dilation Ataxia Bunion of unspecified foot Dementia DTs (delirium tremens) Esophageal tear Flat foot, acquired Frequent falls Generalized atherosclerosis Generalized weakness Hammer toe, acquired unspecified Hearing deficit Hereditary and idiopathic neuropathy, unspecified History of COVID-19 ? 07/17/20 per records History of esophageal dilatation last done 04/16/21 @ [facility] History of esophageal stricture Hx of fracture of hip Hypertension Hypokalemia Hypomagnesemia [facility] 2500 cc fluid daily restriction was noted in records Sensorineural hearing loss (SNHL) of both ears Subgaleal hemorrhage Surgical History History of esophagogastroduodenoscopy (EGD) (~04/16/21) History of hip surgery s/p fall and fx Family History Other Cancer Hypertension Denies family history of Myocardial infarction Stroke Social History Smoking Status: Never smoker Tobacco Type: Cigarettes Second Hand Exposure: No; Hx Alcohol Use: Yes Alcohol type: beer Alcohol Intake Frequency Comment: 7-10 beers a day, uncertain which kind of beer Hx Substance Use: No Preferred Language: Thai Communication Ability: Effective Visual Impairment: No Limitations Hearing Ability: Hard of Hearing Carbide Operator Required: No Beliefs That Will Affect Care: None marital status: Single Current Living Situation: Other Current Living Situation Comment: [address] Other Information That Helps Us Care for You: No Feels Safe at Home: No Is there a partner from a previous relationship who is making you feel unsafe now?: No Any Concerns about Your Family Situation: No Would You Like to Speak to Someone About Your Situation: No Safety Concerns: Feels Safe At This Time Assistive Devices: Walker Review of Systems All systems reviewed & are unremarkable except as noted in HPI & below. Physical Exam .alert, NAD. Right arm is splinted. Able to moves fingers appropriately. NVI Results & Data Results & Data Laboratory Results . Diagnostic Findings .xrays show a displaced olecranon fracture PG Care Time/CCT Total # of Minutes Spent Total Time Spent with Patient: Total time spent is greater than 50% in coordination of care (as documented) at patient's floor/unit and/or counseling patient: Coding Level of Care Code 76144 Inpt Consult Level 3 Diagnoses Fracture of right olecranon process S52.021A Encounter type: initial encounter Fracture type: closed (1) Fracture of right olecranon process Encounter type: initial encounter Fracture type: closed Qualified Code(s): S52.021A - Displaced fracture of olecranon process without intraarticular extension of right ulna, initial encounter for closed fracture
--- NOTE | 2021-09-07 20:14 | Hospitalist Progress Note ---
Date of Service September 07, 2021 Assessment & Plan (1) Frequent falls: (2) Ambulatory dysfunction: (3) Fracture of olecranon process, right, closed: Plan: This is a 56yo M with a PMH of chronic alcoholism, hypertension, chronic hyponatremia, history of ambulatory dysfunction, history of esophageal stenosis status post dilation who presents after multiple falls this morning and was found to have R olecranon fracture as well as multiple electrolyte disturbances in setting of ongoing etoh abuse. Two falls this morning. 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 Fracture distracted by approximately 9 mm. Associated right elbow joint effusion ED provider discussed with Dr. Martinez, who recommended splinting and orthopedic evaluation No acute findings in CT head, cervical spine CT or CXR Fall precautions, PT/OT evaluation, pain control Patient no longer feels safe at home due to unsteadiness on feet - interested in SNF placement Appreciate Ortho input and recommendation Has some pain in the right elbow otherwise stable (4) Alcohol use disorder: Plan: Ongoing etoh abuse, denying drink for over a week but etoh level 40 today. Also with component of dementia 2/2 longstanding etoh use History of DTs in setting of withdrawal in the past Gabapentin and at risk IV ativan withdrawal protocol Banana bag, Thiamine and Folic acid in AM (5) Chronic hyponatremia: Plan: Sodium of 124 in setting of chronic etoh use, non-compliance with home salt tabs - baseline Na closer to 130 Serum and urine osm pending, appears clinically dry During previous admissions, nephro has recommended sodium tablets, fluid restruction of 1200 ml Given IV fluids in ED, follow labwork. Repeat BMP at 2000 Sodium level has been up at 131 Electrolyte imbalance as below Has hypomagnesemia, hypophosphatemia and hypokalemia We will replace and recheck (6) Hypomagnesemia: Plan: Initial Mg 1.6. Replaced. Repeat lab in AM (7) Hypokalemia: Plan: Initial K 2.7. Replaced. Repeat evening BMP (8) Dysphagia: Plan: H/o esophageal stricture in the past s/p dilation by GI. Need pill crushed, has tolerated soft diet previously without issue. Aspiration precautions DVT Ppx: SCDs for now - h/o recurrent falls Code status: FULL PCP: [facility] Dispo: Admitted to PCU Admission and Anticipated Discharge Date Admission Date: September 06, 2021 Subjective 09/07/2021 The patient was seen and examined in emergency room in the [facility] area He has severe ambulatory dysfunction likely secondary to cerebellar ataxia due to prolonged use of alcohol History of recurrent fall and has had a fall with fracture of the olecranon process on the right side Complains of pain at the fracture site but otherwise remained stable Review of Systems Review of Systems: All systems reviewed and are unremarkable except as noted below Musculoskeletal: Pain in the right elbow and right upper extremity Physical Exam Physical Exam: Lying in bed with minimal pain in the right upper extremity near around elbow Constitutional: + ill appearing and + thin Eyes: PERRL, conjunctivae normal, anicteric sclerae ENMT: external ear and nose normal, oropharynx normal Neck: trachea midline, no thyromegaly Respiratory: no respiratory distress Auscultation: lungs clear to auscultation bilaterally Cardiovascular: Rate/Rhythm: regular rate and regular rhythm; not tachycardic Heart Sounds: normal S1 and normal S2; no murmur Extremities: + edema (Trace edema bilaterally) Gastrointestinal (Abdomen): Inspection/Auscultation: normal bowel sounds; abdomen not distended Percussion/Palpation: abdomen soft; abdomen nontender Musculoskeletal: Right elbow is bandaged and right upper extremity is in sling Neurologic: Alert awake and oriented x3. Generally weak Results & Data Results & Data ([facility]) Vital Signs (Past 12 Hours) Vital Signs Temp Pulse Resp BP Pulse Ox 09/07/21 16:00 36.6 C 86 18 139/96 94 09/07/21 12:00 37 C 98 H 18 145/84 H 98 Laboratory Results Short CBC 09/07/21 Range/Units 05:46 WBC 5.98 (4.8-10.8) K/uL Hgb 11.8 L (14.0-18.0) g/dL Hct 34.4 L (42-52) % Plt Count 148 (130-400) K/uL BMP 09/06/21 09/07/21 22:34 05:46 Sodium 126 L 131 L Potassium 3.7 D 3.4 L Chloride 93 L 99 Carbon Dioxide 23 23 BUN 10 7 Creatinine 0.56 L 0.51 L Glucose 96 87 Calcium 7.7 L 7.6 L Medications Administered Current Inpatient Medications Acetaminophen (Acetaminophen 325 Mg Tab) 650 mg PO Q4H PRN PRN Reason: Pain or Fever Stop: 10/06/21 22:20 Last Admin: 09/06/21 23:34 Dose: 650 mg Documented by: Folic Acid (Folic Acid 1 Mg Tab) [facility] Stop: 10/06/21 22:20 Last Admin: 09/07/21 11:36 Dose: 1 mg Documented by: Gabapentin (Gabapentin 600mg Q8h Dose) 600 mg PO Q8H [facility] Stop: 09/08/21 06:01 Last Admin: 09/07/21 14:46 Dose: 600 mg Documented by: Gabapentin (Gabapentin 600mg Q12h Dose) 600 mg PO Q12H [facility] Stop: 09/09/21 06:01 Gabapentin (Gabapentin 600mg X1 Dose) 600 mg PO Q24H [facility] Stop: 09/10/21 06:01 Lorazepam (Lorazepam 2 Mg/1 Ml Vial) 1 mg IV ONE PRN; Protocol PRN Reason: EtoH Withdrawal AWSS 6-10 Ondansetron HCl (Ondansetron Inj 2 Mg/Ml 2 Ml Vial) 4 mg IV Q6H PRN PRN Reason: Nausea Stop: 10/06/21 22:20 Polyethylene Glycol (Polyethylene (Miralax) 17 Gm Pack) 17 gm PO DAILY PRN PRN Reason: Constipation Stop: 10/06/21 22:20 Thiamine HCl (Thiamine Hcl 100 Mg Tab) [facility] Stop: 10/06/21 22:20 Last Admin: 09/07/21 11:36 Dose: 100 mg Documented by: Tramadol HCl (Tramadol Hcl 50 Mg Tablet) 50 mg PO Q4H PRN PRN Reason: Pain Stop: 10/06/21 22:20 Last Admin: 09/07/21 11:36 Dose: 50 mg Documented by:
[2021-09-08] MEDS: ACETAMINOPHEN 325 MG TAB PO PRN ×5 (01:26→22:49)
[2021-09-08] MEDS: traMADol HCL 50 MG TABLET PO PRN ×2 (05:05→17:39)
[2021-09-08 05:44] LABS: Basophils # (auto) 0.06 K/uL (0-0.2); Eosinophils # (auto) 0.18 K/uL (0-0.5); Hematocrit (blood only) 34.8 % (42-52); Hemoglobin 11.8 g/dL (14.0-18.0); Immature Granulocytes # (auto) 0.02 K/uL (0.00-0.02); Immature Granulocytes % (auto) 0.3 %; Lymphocytes % (auto) 23.4 %; Mean Corpuscular Hemoglobin 30.4 pg (25-34); Mean Corpuscular Hgb Conc 33.9 g/dL (32-36); Mean Corpuscular Volume 89.7 fL (80-100); Mean Platelet Volume 9.4 fL (7.4-10.4); Monocytes # (auto) 1.26 K/uL (0.11-0.59); Neutrophils # (auto) 3.07 K/uL (1.4-6.5); Neutrophils % (auto) 51.3 %; Platelet Count 160 K/uL (130-400); RDW Coefficient of Variation 15.7 % (11.5-14.5); RDW Standard Deviation 51.6 fL (36.4-46.3); Red Blood Count 3.88 M/uL (4.7-6.1); White Blood Count 5.99 K/uL (4.8-10.8)
[2021-09-08] MEDS: GABAPENTIN 600MG Q8H DOSE PO SCH (05:52)
[2021-09-08 05:58] LABS: Prothrombin Time 10.3 Seconds (9.0-12.0)
[2021-09-08 06:03] LABS: Albumin Globulin Ratio 1.3 (0.9-2); Albumin Level 3.5 gm/dl (3.4-5.0); BUN Creatinine Ratio 6.1 (10-20); Bilirubin,Total 0.5 mg/dl (0.2-1.0); Calcium 7.8 mg/dl (8.5-10.1); Creatinine Clr Calc Pharmacy 164.2 ml/min; Est GFR (African American) 140.6 ml/min; Est GFR (Non-African American) 121.3 ml/min; Globulin 2.6 gm/dl (2.5-4.0); Magnesium 1.5 mg/dl (1.7-2.4); Phosphorus 2.5 mg/dl (2.5-4.9); Potassium 3.2 mmol/L (3.5-5.1); Total Protein 6.1 gm/dl (6.0-8.3)
[2021-09-08] MEDS ORDERED: POTASSIUM CHLORIDE CRTAB 20 MEQ TABCR PO STA (08:31)
[2021-09-08] MEDS: FOLIC ACID 1 MG TAB PO SCH (10:13)
[2021-09-08] MEDS: THIAMINE HCL 100 MG TAB PO SCH (10:13)
[2021-09-08] MEDS: MAGNESIUM SULFATE / D5W 1 GM/100 ML BAG IV SCH ×2 (10:16→12:26)
--- NOTE | 2021-09-08 14:31 | Hospitalist Progress Note ---
Date of Service September 08, 2021 Assessment & Plan (1) Frequent falls: (2) Ambulatory dysfunction: (3) Fracture of olecranon process, right, closed: Plan: This is a 56yo M with a PMH of chronic alcoholism, hypertension, chronic hyponatremia, history of ambulatory dysfunction, history of esophageal stenosis status post dilation who presents after multiple falls this morning and was found to have R olecranon fracture as well as multiple electrolyte disturbances in setting of ongoing etoh abuse. Two falls this morning. 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 Fracture distracted by approximately 9 mm. Associated right elbow joint effusion ED provider discussed with Dr. Martinez, who recommended splinting and orthopedic evaluation No acute findings in CT head, cervical spine CT or CXR Fall precautions, PT/OT evaluation, pain control Patient no longer feels safe at home due to unsteadiness on feet - interested in SNF placement Ortho on board Plan for ORIF of the fracture of the right olecranon process Will talk to ortho to find out when planning for the procedure Continue pain control (4) Alcohol use disorder: Plan: Ongoing etoh abuse, denying drink for over a week but etoh level 40 today. Also with component of dementia 2/2 longstanding etoh use History of DTs in setting of withdrawal in the past Pt said last drink was 2/16 Continue Gabapentin and ativan for alcohol withdrawal protocol Banana bag, Thiamine and Folic acid in AM Counseling on smoking cessation (5) Chronic hyponatremia: Plan: Sodium of 124 in setting of chronic etoh use, non-compliance with home salt tabs - baseline Na closer to 130 During previous admissions, nephro has recommended sodium tablets, fluid restriction of 1200 ml Sodium 127 today Will monitor BMP (6) Hypomagnesemia: Plan: Mg 1.5 today Mg replaced Continue monitor mg level (7) Hypokalemia: Plan: K 3.2 today K replaced Continue monitor BMP (8) Dysphagia: Plan: H/o esophageal stricture in the past s/p dilation by GI. Need pill crushed, has tolerated soft diet previously without issue. Aspiration precautions DVT Ppx: SCDs for now - h/o recurrent falls Code status: FULL PCP: Manasa Disposition Waiting for placement to rehab Admission and Anticipated Discharge Date Admission Date: September 06, 2021 Subjective Patient was seen and examined for follow-up of weakness and fall Sitting at the edge of the bed eating his lunch Patient said that he is main concerned is the walking He said that he does not have any balance to walk He said he is is having a lot of pain in his right elbow Denies any chest pain, palpitation, dizziness, shortness of breath. Review of Systems Review of Systems: All systems reviewed & are unremarkable except as noted in Subjective Physical Exam Physical Exam: General- No acute distress Head- atraumatic Eyes- PERRL, EOMI, ENT- Decrease hearing function Neck- supple, no JVD Lungs- clear to auscultation Heart- regular rhythm; no murmur Abdomen- normal bowel sounds, soft, nontender Extremities- +RUE in splint Neuro- alert, oriented x 3; PERRL, EOMI; no facial palsy; no dysarthria Skin- warm & dry Results & Data Results & Data ([facility]) Vital Signs (Past 12 Hours) Vital Signs Temp Pulse Resp BP Pulse Ox 09/08/21 07:53 36.7 C 75 13 136/88 92 09/08/21 04:19 36.7 C 91 H 18 114/71 92
[2021-09-08] MEDS ORDERED: GABAPENTIN 600 MG TAB PO SCH (16:30)
[2021-09-08] MEDS: GABAPENTIN 600MG Q12H DOSE PO SCH (17:36)
--- NOTE | 2021-09-08 17:54 | Orthopedic Progress Note ---
Date of Service September 08, 2021 Assessment & Plan (1) Fracture of right olecranon process: He is interested in having surgery to fix his elbow fracture. Procedure was explained to him. We will make him npo after midnight and plan on ORIF tomorrow () with Dr. Martinez. Subjective .56 year old patient with right olecranon fracture. He reports some elbow pain and some discomfort around the wrist. He is interested in having surgery to fix his elbow. Review of Systems All systems reviewed & are unremarkable except as noted in HPI & below. Physical Exam .alert. NAD. RUE: splint intact. Fitting appropriately. He is able to move his fingers appropriately. NVI Results & Data Results & Data Laboratory Results . Diagnostic Findings . PG Care Time/CCT Total # of Minutes Spent Total Time Spent with Patient: Total time spent is greater than 50% in coordination of care (as documented) at patient's floor/unit and/or counseling patient: Coding Level of Care Code 29138 Subseq Hosp Care Lvl 2 Diagnoses Fracture of right olecranon process S52.021A Encounter type: initial encounter Fracture type: closed (1) Fracture of right olecranon process Encounter type: initial encounter Fracture type: closed Qualified Code(s): S52.021A - Displaced fracture of olecranon process without intraarticular extension of right ulna, initial encounter for closed fracture
[2021-09-09] MEDS: GABAPENTIN 600MG Q12H DOSE PO SCH (06:03)
[2021-09-09 06:23] LABS: Anion Gap 8 (3-11); BUN Creatinine Ratio 7.3 (10-20); Blood Urea Nitrogen 3 mg/dl (6-23); Carbon Dioxide 27 mmol/L (21-32); Chloride 97 mmol/L (98-107); Creatinine Clr Calc Pharmacy 170.1 ml/min; Est GFR (African American) > 150.0 ml/min; Est GFR (Non-African American) 130.5 ml/min; Glucose 93 mg/dl (70-99(Fasting)); Magnesium 1.7 mg/dl (1.7-2.4); Phosphorus 3.2 mg/dl (2.5-4.9); Potassium 3.7 mmol/L (3.5-5.1); Sodium 132 mmol/L (136-145)
--- NOTE | 2021-09-09 08:18 | Anesthesiology Consultation ---
Date of Service September 09, 2021 Assessment & Plan (1) Encounter for pre-operative examination: Chart Review Chart Review: Acceptable Risk for Surgery and Patient NOT seen in Pre Admission Testing Consults Requested none History Surgery Operation Date: 09/09/21 15:20 Proposed Procedures p Right Open Reduction Internal Fixation Olecranon Fracture - Patrick Martinez DO Height/Weight Height: 5 ft 11 in Weight: 60.3 kg Allergies Allergy/AdvReac Type Severity Reaction Status Date / Time hydralazine Allergy Intermediate rapid drop Verified 05/12/21 08:48 in BP/Vomiting Penicillins AdvReac Mild TIRED Verified 05/12/21 08:48 Medications Active Medications Generic Name Dose Route Start Last Admin Trade Name Freq PRN Reason Stop Dose Admin Acetaminophen 650 mg 09/06/21 22:21 09/08/21 22:49 Acetaminophen 325 Mg Tab PO 10/06/21 22:20 650 mg Q4H PRN Administration Pain or Fever Folic Acid 1 mg 09/06/21 22:21 09/08/21 10:13 Folic Acid 1 Mg Tab PO 10/06/21 22:20 1 mg QAM YOMAIRA Administration Thiamine HCl 100 mg 09/06/21 22:21 09/08/21 10:13 Thiamine Hcl 100 Mg Tab PO 10/06/21 22:20 100 mg QAM YOMAIRA Administration Tramadol HCl 50 mg 09/06/21 22:21 09/08/21 17:39 Tramadol Hcl 50 Mg Tablet PO 10/06/21 22:20 50 mg Q4H PRN Administration Pain Past Medical History Medical History Adult failure to thrive Alcohol use disorder Ambulatory dysfunction Anemia Anxiety Aortic root dilation Ataxia Bunion of unspecified foot Dementia DTs (delirium tremens) Esophageal tear Flat foot, acquired Frequent falls Generalized atherosclerosis Generalized weakness Hammer toe, acquired unspecified Hearing deficit Hereditary and idiopathic neuropathy, unspecified History of COVID-19 ? 07/17/20 per records History of esophageal dilatation last done 04/16/21 @ [facility] History of esophageal stricture Hx of fracture of hip Hypertension Hypokalemia Hypomagnesemia long-term resident [facility] 2500 cc fluid daily restriction was noted in records Sensorineural hearing loss (SNHL) of both ears Subgaleal hemorrhage Past Family History Family History Other Cancer Hypertension Denies family history of Myocardial infarction Stroke Past Surgical History Surgical History History of esophagogastroduodenoscopy (EGD) (~04/16/21) History of hip surgery s/p fall and fx Social History Smoking Status: Never smoker tobacco type: cigarettes Hx Alcohol Use: Yes Alcohol type: beer alcohol intake frequency: 3 or more drinks per day Hx Substance Use: No substance use type: does not use Physical Exam Vital Signs Last Vital Signs Temp 97.9 F 09/08/21 22:59 Pulse 96 H 09/08/21 23:58 Resp 18 09/08/21 22:59 BP 164/94 H 09/08/21 22:59 Pulse Ox 94 09/08/21 22:59 Testing Laboratory Results 09/08/21 05:17 09/09/21 05:42 PT 10.3 Seconds (9.0-12.0) 09/08/21 05:17 INR 1.0 (0.9-1.1) 09/08/21 05:17 Urine Color Yellow 09/06/21 18:07 Urine Appearance Clear (Clear) 09/06/21 18:07 Urine pH 6.5 (4.5-7.5) 09/06/21 18:07 Ur Specific [place] 1.018 (1.000-1.030) 09/06/21 18:07 Urine Protein Negative (Negative) 09/06/21 18:07 Urine Glucose (UA) Negative (Negative) 09/06/21 18:07 Urine Ketones 1+ (Negative) H 09/06/21 18:07 Urine Nitrite Negative (Negative) 09/06/21 18:07 Ur Leukocyte Esterase Negative (Negative) 09/06/21 18:07 Electrocardiogram Date: 09/06/21 Findings: + NSR @ tachycardia with PACs
[2021-09-09] MEDS: FOLIC ACID 1 MG TAB PO SCH (08:54)
[2021-09-09] MEDS: THIAMINE HCL 100 MG TAB PO SCH (08:54)
[2021-09-09] MEDS: traMADol HCL 50 MG TABLET PO PRN (08:54)
--- NOTE | 2021-09-09 13:32 | Orthopedic Progress Note ---
Date of Service September 09, 2021 Assessment & Plan (1) Fracture of right olecranon process: I discussed the diagnosis and treatment options with him at bedside. I recommended open reduction internal fixation of right elbow. This would ensure a quicker return to function. We talked about the risk, benefits, and alternatives to procedure and elected to proceed. Questions were answered at bedside and consents were signed. Time was spent scribed procedure and post expectations. The decision was made for surgery. He is currently n.p.o. and we will plan on doing the surgery later this afternoon. Thuy Walker was seen and examined at bedside this morning. Unfortunately still having a lot of pain in the right elbow. He says it is really sore. He has had no acute events overnight. . Review of Systems All systems reviewed & are unremarkable except as noted in HPI & below. Physical Exam Physical examination of the right elbow shows the elbow in a posterior splint. He is active motion of his fingers. I did not do any range of motion testing of the elbow. . Constitutional WD/WN, vitals as above Eyes PERRL, conjunctivae normal, anicteric sclerae ENMT external ear and nose normal, oropharynx normal Neck trachea midline, no thyromegaly Respiratory normal respiratory effort Cardiovascular RRR, no murmur, no edema Gastrointestinal (Abdomen) normal bowel sounds, soft, nontender, no hepatosplenomegaly Psychiatric A+Ox3, euthymic affect Results & Data Results & Data Laboratory Results . Diagnostic Findings X-rays of the right elbow show a displaced transverse olecranon fracture of the right elbow . PG Care Time/CCT Total # of Minutes Spent Total Time Spent with Patient: Total time spent is greater than 50% in coordination of care (as documented) at patient's floor/unit and/or counseling patient: Coding Level of Care Code 60842 Subseq Hosp Care Lvl 2 (56 - DECISION FOR SURGERY) Diagnoses Fracture of right olecranon process S52.021A Encounter type: initial encounter Fracture type: closed (1) Fracture of right olecranon process Encounter type: initial encounter Fracture type: closed Qualified Code(s): S52.021A - Displaced fracture of olecranon process without intraarticular extension of right ulna, initial encounter for closed fracture
--- NOTE | 2021-09-09 13:33 | History & Physical Bridge Note ---
Date of Service September 09, 2021 History & Physical Bridge Note I have examined the patient, reviewed the History & Physical and in the interval since the performance of the History & Physical I have noted the following changes of clinical significance: no changes noted
[2021-09-09] MEDS ORDERED: BUPIVACAINE 0.5 % 5 MG/1 ML MPF 30ML VIAL ONE (14:40)
--- NOTE | 2021-09-09 14:49 | Hospitalist Progress Note ---
Date of Service September 09, 2021 Assessment & Plan (1) Frequent falls: (2) Ambulatory dysfunction: (3) Fracture of olecranon process, right, closed: Plan: This is a 56yo M with a PMH of chronic alcoholism, hypertension, chronic hyponatremia, history of ambulatory dysfunction, history of esophageal stenosis status post dilation who presents after multiple falls this morning and was found to have R olecranon fracture as well as multiple electrolyte disturbances in setting of ongoing etoh abuse. Two falls this morning. 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 Fracture distracted by approximately 9 mm. Associated right elbow joint effusion ED provider discussed with Dr. Martinez, who recommended splinting and orthopedic evaluation No acute findings in CT head, cervical spine CT or CXR Fall precautions, PT/OT evaluation, pain control Patient no longer feels safe at home due to unsteadiness on feet - interested in SNF placement Ortho on board Plan for ORIF of the fracture of the right olecranon process today Stable to proceed with the procedure Currently NPO Continue pain control (4) Alcohol use disorder: Plan: Ongoing etoh abuse, denying drink for over a week but etoh level 40 today. Also with component of dementia 2/2 longstanding etoh use History of DTs in setting of withdrawal in the past Pt said last drink was 2/16 Continue Gabapentin and ativan for alcohol withdrawal protocol Banana bag, Thiamine and Folic acid in AM Counseling on smoking cessation (5) Chronic hyponatremia: Plan: Sodium of 124 in setting of chronic etoh use, non-compliance with home salt tabs - baseline Na closer to 130 During previous admissions, nephro has recommended sodium tablets, fluid restriction of 1200 ml Sodium 132 today Will monitor BMP (6) Hypomagnesemia: Plan: Mg 1.7 today Continue monitor mg level (7) Hypokalemia: Plan: K 3.7 today K replaced Continue monitor BMP (8) Dysphagia: Plan: H/o esophageal stricture in the past s/p dilation by GI. Need pill crushed, has tolerated soft diet previously without issue. Aspiration precautions DVT Ppx: SCDs for now - h/o recurrent falls Code status: FULL PCP: Manasa Disposition Plan for ORIF right olecranon process today Waiting for placement to rehab Admission and Anticipated Discharge Date Admission Date: September 06, 2021 Subjective Patient was seen and examined for follow-up of weakness, fall and right elbow fracture Lying in bed with no acute distress Pt said that he continues to have right elbow pain He is schedule to have surgery today for the right elbow fracture Denies any chest pain, palpitation, dizziness, shortness of breath. Review of Systems Review of Systems: All systems reviewed & are unremarkable except as noted in Subjective Physical Exam Physical Exam: General- No acute distress Head- atraumatic Eyes- PERRL, EOMI, ENT- Decrease hearing function Neck- supple, no JVD Lungs- clear to auscultation Heart- regular rhythm; no murmur Abdomen- normal bowel sounds, soft, nontender Extremities- +RUE in splint, right elbow pain Neuro- alert, oriented x 3; PERRL, EOMI; no facial palsy; no dysarthria Skin- warm & dry Results & Data Results & Data ([facility]) Vital Signs (Past 12 Hours) Vital Signs Temp Pulse Resp BP Pulse Ox 09/09/21 13:36 79 16 152/99 H 96 09/09/21 12:24 36.7 C 85 16 142/90 H 94 09/09/21 08:05 36.4 C L 88 18 153/102 H 95
[2021-09-09] MEDS ORDERED: MIDAZOLAM HCL 1 MG/ML 2ML VIAL ONE (15:13)
[2021-09-09] MEDS ORDERED: LIDOCAINE 2% 2 ML VIAL/AMP(20MG/ML) INFIL ONE (15:13)
[2021-09-09] MEDS ORDERED: fentaNYL citrate 100 MCG/2 ML VIAL ONE (15:13)
[2021-09-09] MEDS ORDERED: PROPOFOL IV EMULSION 10 MG/ML 20 ML VIAL IV ONE (15:13)
[2021-09-09] MEDS ORDERED: ceFAZolin 1000MG 1,000 MG/7.5 ML SYR IV ONE (15:52)
[2021-09-09] MEDS ORDERED: SUCCINYLCHOLINE CHLORIDE 20 MG/ML 10 ML VIAL IV ONE (15:58)
[2021-09-09] MEDS ORDERED: ROCURONIUM BROMIDE 10 MG/ML 5 ML VIAL IV ONE (15:58)
[2021-09-09] MEDS ORDERED: ceFAZolin 330 MG/ML 1 GM VIAL ONE (15:58)
[2021-09-09] MEDS ORDERED: GLYCOPYRROLATE 0.2 MG/ML VIAL ONE (16:21)
[2021-09-09] MEDS ORDERED: NEOSTIGMINE METHYLSULFATE 1 MG/ML 10ML VIAL ONE (16:21)
--- NOTE | 2021-09-09 17:04 | Operative Report ---
PG Post Operative Report Pre & Post Diagnosis Operation Date: 09/09/21 15:20 Pre-Op Diagnosis: Fracture of right olecranon process. Post-Op Diagnosis: Fracture of right olecranon process. I identified the patient and participated in the time-out.: Yes Procedure Operation Date: 09/09/21 15:20 Actual Procedures p Right open reduction internal fixation olecranon fracture(Right) - Patrick Martinez DO Surgeon Patrick Martinez DO Lead Data Entry Operator Patrick Davidson PAC Estimated Blood Loss 10 Findings Consistent with Post-Op Diagnosis Specimens None Complications none Disposition Disposition: Recovery Room Indications Aaron is a pleasant 86-year-old male who fell a couple of days ago. He has been struggling with alcoholism and physical weakness. Unfortunately fell onto his right elbow and fractured his right olecranon. He was admitted to the hospitalist service. After discussions in the hospital. He has elected to proceed with an open reduction internal fixation of his right olecranon. Description of Procedure On September 09, 2021 Aaron was brought down from his hospital room to the preoperative holding area. The operative extremity was identified and signed. He was given a preoperative antibiotic. He was taken back to operative room and laid on the table in supine position. He was put under general anesthesia. He was then put in the lateral cubitus position. The right elbow was prepped and draped in sterile fashion. A timeout was done. The patient and the operative extremity was properly identified. A longitudinal incision was made over the olecranon and down the proximal shaft of the ulna. Dissection was taken down right to the olecranon bone. The fracture was identified. The fracture was then reduced with a reduction clamp. It was actually a comminuted fracture with multiple fragments. Once I was able to get an adequate reduction, 2 K wires were placed. Fluoroscopic images were used to ensure anatomic alignment of the fracture. A Synthes olecranon plate was then placed. A compression screw was placed distally. A locking screw was then placed proximally. Fluoroscopic images showed good alignment of the plate and scientology of the articular surface. The remainder of the proximal locking screws and distal locking screws were placed. All screws were tightened. Final fluoroscopic images showed good alignment of the fracture. The wound was then irrigated. The triceps and deep fascial layer was closed with #0 Vicryl suture. The skin was closed with 2-0 Vicryl and geovanna. He was then placed in a posterior splint. He [facility] He was taken to the postanesthesia care unit in stable condition. He tolerated the procedure well. Patrick Davidson PA-C, was present for the entire procedure. He was critical for patient positioning, prepping, draping, retraction exposure, wound closure and application of sterile dressing. I attest to the content of the Intraoperative Record and any orders documented therein. Any exceptions are noted below.
[2021-09-09] MEDS ORDERED: PHENYLEPHRINE 100MCG/ML 5ML SYR IV PRN (17:08)
[2021-09-09] MEDS ORDERED: ATROPINE SULFATE 0.1 MG/ML 10ML SYR IV PRN (17:08)
[2021-09-09] MEDS ORDERED: ONDANSETRON INJ 2 MG/ML 2 ML VIAL IV PRN (17:08)
[2021-09-09] MEDS ORDERED: fentaNYL citrate 100 MCG/2 ML VIAL IV PRN (17:08)
[2021-09-09] MEDS ORDERED: ePHEDrine sulfate 50 MG/ML AMP IV PRN (17:08)
[2021-09-09] MEDS ORDERED: HYDROmorphone INJ 1 MG/ML SYRINGE IV PRN (17:08)
[2021-09-09] MEDS ORDERED: LABETALOL HCL IV 5 MG/ML 20ML IV PRN (17:08)
--- NOTE | 2021-09-09 17:25 | Anesthesiology Progress Note ---
Date of Service September 09, 2021 Anesthesia Post Procedure Vital Signs Vital Signs: Temp Pulse Pulse Resp BP Pulse Ox 09/09/21 15:10 36.8 C 75 14 162/85 H 95 09/09/21 13:36 79 16 152/99 H 96 09/09/21 12:24 36.7 C 85 16 142/90 H 94 09/09/21 08:05 36.4 C L 88 18 153/102 H 95 09/08/21 23:58 96 H 09/08/21 22:59 36.6 C 74 18 164/94 H 94 09/08/21 19:31 36.6 C 72 20 125/82 94 Pain Intensity Right Elbow: Pain Intensity: 3 Transfer of Care Handoff Completed per policy Notes Mental Status: alert / awake / arousable Patient Amnestic to Procedure: Yes Nausea / Vomiting: adequately controlled Pain: adequately controlled Airway Patency, RR, SpO2: stable & adequate BP & HR: stable & adequate Hydration State: stable & adequate Anesthetic Complications: no major complications apparent and Pt Satisfied with anesthetic care Notes: The patient is awake and comfortable. His vital signs are stable.
--- NOTE | 2021-09-09 17:39 | Fluoroscopy Report ---
FL elbow RT 3V RTN CLINICAL HISTORY: RT ORIF OLECRANON FX COMPARISON STUDY: Right elbow radiographs September 06, 2021. FLUOROSCOPY TIME: 41 seconds. FLUOROSCOPIC IMAGES: 2 FINDINGS: Fluoroscopy was provided during internal fixation of the right olecranon fracture with plat e and screws. Hardware is intact. There are no unexpected radiopaque foreign bodies. Fracture alignme nt appears anatomic. IMPRESSION: Fluoroscopy provided during internal fixation of the right olecranon fracture. ACT 112: Negative or not required by law. Electronically signed by: Kalin Roberts M.D. 09/09/2021 5:37 PM
[2021-09-09] MEDS: oxyCODONE HCL IR 5 MG TAB (IMMEDIATE RELEASE) PO PRN (18:39)
[2021-09-09] MEDS: ACETAMINOPHEN 500 MG TAB PO PRN (19:35)
[2021-09-10] MEDS: ACETAMINOPHEN 500 MG TAB PO PRN ×4 (01:18→22:43)
[2021-09-10] MEDS ORDERED: GABAPENTIN 600 MG TAB PO SCH (04:30)
[2021-09-10] MEDS ORDERED: GABAPENTIN 600MG X1 DOSE PO SCH (06:00)
[2021-09-10] MEDS: FOLIC ACID 1 MG TAB PO SCH (07:48)
[2021-09-10] MEDS: THIAMINE HCL 100 MG TAB PO SCH (07:48)
--- NOTE | 2021-09-10 15:22 | Orthopedic Progress Note ---
Date of Service September 10, 2021 Assessment & Plan (1) Fracture of olecranon process, right, closed: Overall is doing as well as expected. He will be in a posterior splint for about 4 weeks. I will see him back in the office in 2 weeks for staple removals and x-ray. He is orthopedically stable for discharge when medically ready. Full orthopedic discharge instructions were placed in the discharge summary. Subjective Aaron was seen and examined at bedside today. He said he is having some soreness in the elbow but is not too bad. He seems to be using his hand and wrist pretty easily on the right side. He had no acute events overnight. Review of Systems All systems reviewed & are unremarkable except as noted in HPI & below. Physical Exam On physical examination the right elbow, he is in a posterior splint. He has motion of all of his fingers. Results & Data Results & Data Laboratory Results . Diagnostic Findings . PG Care Time/CCT Total # of Minutes Spent Total Time Spent with Patient: Total time spent is greater than 50% in coordination of care (as documented) at patient's floor/unit and/or counseling patient: Coding Level of Care Code 01776 Post Operative Follow-Up Diagnoses Fracture of olecranon process, right, closed S52.021A
--- NOTE | 2021-09-10 19:10 | Hospitalist Progress Note ---
Date of Service September 10, 2021 Assessment & Plan (1) Fracture of olecranon process, right, closed: Plan: This is a 56yo M with a PMH of chronic alcoholism, hypertension, chronic hyponatremia, history of ambulatory dysfunction, history of esophageal stenosis status post dilation who presents after multiple falls this morning and was found to have R olecranon fracture as well as multiple electrolyte disturbances in setting of ongoing etoh abuse. Two falls this morning. 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 Fracture distracted by approximately 9 mm. Associated right elbow joint effusion ED provider discussed with Dr. Martinez, who recommended splinting and orthopedic evaluation No acute findings in CT head, cervical spine CT or CXR S/P day #1 Right open reduction internal fixation olecranon fracture performed by Dr. Martinez No post op complication Continue pain control Ortho recommended to continue posterior splint for about 4 weeks. Follow up with ortho in 2 weeks for staple removals and x-ray. Stable from ortho standpoint to discharge Waiting for placement to rehab (2) Ambulatory dysfunction: (3) Frequent falls: Plan: Mostly related to chronic alcohol abuse CT head showed no acute intracranial abnormality Continue PT/OT eval Waiting for placement to rehab (4) Alcohol use disorder: Plan: Ongoing etoh abuse, denying drink for over a week but etoh level 40 today. Also with component of dementia 2/2 longstanding etoh use History of DTs in setting of withdrawal in the past Pt said last drink was 2/16 On Gabapentin and ativan for alcohol withdrawal protocol Banana bag, Thiamine and Folic acid in AM Counseling on smoking cessation (5) Chronic hyponatremia: Plan: Sodium of 124 in setting of chronic etoh use, non-compliance with home salt tabs - baseline Na closer to 130 During previous admissions, nephro has recommended sodium tablets, fluid restriction of 1200 ml Sodium 132 today Will monitor BMP (6) Hypomagnesemia: Plan: Mg 1.7 today Continue monitor mg level (7) Hypokalemia: Plan: K 3.7 today K replaced Continue monitor BMP (8) Dysphagia: Plan: H/o esophageal stricture in the past s/p dilation by GI. Need pill crushed, has tolerated soft diet previously without issue. Aspiration precautions DVT Ppx: SCDs for now - h/o recurrent falls Code status: FULL PCP: Manasa Disposition Will transfer to [facility] Waiting for placement to rehab Admission and Anticipated Discharge Date Admission Date: September 06, 2021 Subjective Patient was seen and examined for follow-up of weakness, fall and postop right elbow fracture Lying in bed with no acute distress He said that he is having alot pain in his right elbow Pt said that he continues to have lower extremity weakness Denies any chest pain, palpitation, dizziness, shortness of breath. Review of Systems Review of Systems: All systems reviewed & are unremarkable except as noted in Subjective Physical Exam Physical Exam: General- No acute distress Head- atraumatic Eyes- PERRL, EOMI, ENT- Decrease hearing function Neck- supple, no JVD Lungs- clear to auscultation Heart- regular rhythm; no murmur Abdomen- normal bowel sounds, soft, nontender Extremities- +RUE in splint, right elbow pain Neuro- alert, oriented x 3; PERRL, EOMI; no facial palsy; no dysarthria Skin- warm & dry Results & Data Results & Data ([facility]) Vital Signs (Past 12 Hours) Vital Signs Temp Pulse Pulse Resp BP Pulse Ox 09/10/21 12:40 36.9 C 97 H 22 138/91 98 09/10/21 11:24 76 09/10/21 07:45 36.9 C 98 H 14 168/97 H 92
[2021-09-10] MEDS: oxyCODONE HCL IR 5 MG TAB (IMMEDIATE RELEASE) PO PRN (19:22)
[2021-09-11] MEDS: ACETAMINOPHEN 500 MG TAB PO PRN ×3 (08:14→20:11)
[2021-09-11] MEDS: oxyCODONE HCL IR 5 MG TAB (IMMEDIATE RELEASE) PO PRN ×2 (08:15→14:14)
[2021-09-11 09:37] LABS: Hematocrit (blood only) 33.8 % (42-52); Hemoglobin 11.7 g/dL (14.0-18.0); Mean Corpuscular Hgb Conc 34.6 g/dL (32-36); Mean Corpuscular Volume 89.4 fL (80-100); Mean Platelet Volume 8.7 fL (7.4-10.4); Platelet Count 284 K/uL (130-400); RDW Coefficient of Variation 15.8 % (11.5-14.5); RDW Standard Deviation 51.6 fL (36.4-46.3); Red Blood Count 3.78 M/uL (4.7-6.1); White Blood Count 8.21 K/uL (4.8-10.8)
[2021-09-11 09:58] LABS: BUN Creatinine Ratio 14.3 (10-20); Calcium 7.9 mg/dl (8.5-10.1); Creatinine Clr Calc Pharmacy 175.7 ml/min; Est GFR (African American) 149.8 ml/min; Est GFR (Non-African American) 129.2 ml/min; Potassium 3.5 mmol/L (3.5-5.1)
[2021-09-11] MEDS: THIAMINE HCL 100 MG TAB PO SCH (10:07)
[2021-09-11] MEDS: FOLIC ACID 1 MG TAB PO SCH (10:07)
[2021-09-11] MEDS: SODIUM CHLORIDE 1 GM TABLET PO SCH ×2 (13:52→20:09)
--- NOTE | 2021-09-11 21:35 | Hospitalist Progress Note ---
Date of Service September 11, 2021 Assessment & Plan (1) Fracture of olecranon process, right, closed: Plan: This is a 56yo M with a PMH of chronic alcoholism, hypertension, chronic hyponatremia, history of ambulatory dysfunction, history of esophageal stenosis status post dilation who presents after multiple falls this morning and was found to have R olecranon fracture as well as multiple electrolyte disturbances in setting of ongoing etoh abuse. Two falls this morning. 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 Fracture distracted by approximately 9 mm. Associated right elbow joint effusion ED provider discussed with Dr. Martinez, who recommended splinting and orthopedic evaluation No acute findings in CT head, cervical spine CT or CXR S/P day #2 Right open reduction internal fixation olecranon fracture performed by Dr. Martinez No post op complication Continue pain control Ortho recommended to continue posterior splint for about 4 weeks. Follow up with ortho in 2 weeks for staple removals and x-ray. Stable from ortho standpoint to discharge Waiting for placement to rehab (2) Ambulatory dysfunction: (3) Frequent falls: Plan: Mostly related to chronic alcohol abuse CT head showed no acute intracranial abnormality Continue PT/OT eval Waiting for placement to rehab (4) Alcohol use disorder: Plan: Ongoing etoh abuse, denying drink for over a week but etoh level 40 today. Also with component of dementia 2/2 longstanding etoh use History of DTs in setting of withdrawal in the past Pt said last drink was 2/16 On Gabapentin and ativan for alcohol withdrawal protocol Banana bag, Thiamine and Folic acid in AM Counseling on smoking cessation (5) Chronic hyponatremia: Plan: Sodium of 124 in setting of chronic etoh use, non-compliance with home salt tabs - baseline Na closer to 130 During previous admissions, nephro has recommended sodium tablets, fluid restriction of 1200 ml Sodium 139 today Starting on salt tablet Continue 1.5L fluid restriction Will monitor BMP (6) Hypomagnesemia: Plan: Mg 1.7 today Continue monitor mg level (7) Hypokalemia: Plan: K 3.5 today K replaced Continue monitor BMP (8) Dysphagia: Plan: H/o esophageal stricture in the past s/p dilation by GI. Need pill crushed, has tolerated soft diet previously without issue. Aspiration precautions DVT Ppx: SCDs for now - h/o recurrent falls Code status: FULL PCP: Manasa Disposition Waiting for placement to rehab Admission and Anticipated Discharge Date Admission Date: September 06, 2021 Subjective Patient was seen and examined for follow-up of weakness, fall and postop right elbow fracture Lying in bed with no acute distress His pain improves Denies any chest pain, palpitation, dizziness, shortness of breath. Review of Systems Review of Systems: All systems reviewed & are unremarkable except as noted in Subjective Physical Exam Physical Exam: General- No acute distress Head- atraumatic Eyes- PERRL, EOMI, ENT- Decrease hearing function Neck- supple, no JVD Lungs- clear to auscultation Heart- regular rhythm; no murmur Abdomen- normal bowel sounds, soft, nontender Extremities- +RUE in splint, right elbow pain Neuro- alert, oriented x 3; PERRL, EOMI; no facial palsy; no dysarthria Skin- warm & dry Results & Data Results & [facility] ([facility]) Vital Signs (Past 12 Hours) Vital Signs Temp Pulse Resp BP Pulse Ox 09/11/21 16:07 37.0 C 88 18 143/86 H 94
[2021-09-12] MEDS: ACETAMINOPHEN 500 MG TAB PO PRN ×3 (03:46→16:38)
[2021-09-12] MEDS: oxyCODONE HCL IR 5 MG TAB (IMMEDIATE RELEASE) PO PRN ×4 (03:51→22:43)
[2021-09-12] MEDS: FOLIC ACID 1 MG TAB PO SCH (08:29)
[2021-09-12] MEDS: THIAMINE HCL 100 MG TAB PO SCH (08:29)
[2021-09-12] MEDS: SODIUM CHLORIDE 1 GM TABLET PO SCH ×2 (08:29→20:46)
[2021-09-12 10:20] LABS: BUN Creatinine Ratio 14.9 (10-20); Calcium 8.7 mg/dl (8.5-10.1); Est GFR (Non-African American) 123.4 ml/min; Magnesium 1.6 mg/dl (1.7-2.4); Potassium 3.6 mmol/L (3.5-5.1)
[2021-09-12] MEDS ORDERED: MAGNESIUM SULFATE / D5W 1 GM/100 ML BAG IV ONE (13:00)
--- NOTE | 2021-09-12 19:55 | Hospitalist Progress Note ---
Date of Service September 12, 2021 Assessment & Plan (1) Fracture of olecranon process, right, closed: Plan: This is a 56yo M with a PMH of chronic alcoholism, hypertension, chronic hyponatremia, history of ambulatory dysfunction, history of esophageal stenosis status post dilation who presents after multiple falls this morning and was found to have R olecranon fracture as well as multiple electrolyte disturbances in setting of ongoing etoh abuse. Two falls this morning. 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 Fracture distracted by approximately 9 mm. Associated right elbow joint effusion ED provider discussed with Dr. Martinez, who recommended splinting and orthopedic evaluation No acute findings in CT head, cervical spine CT or CXR S/P day #2 Right open reduction internal fixation olecranon fracture performed by Dr. Martinez No post op complication Continue pain control Ortho recommended to continue posterior splint for about 4 weeks. Follow up with ortho in 2 weeks for staple removals and x-ray. Stable from ortho standpoint to discharge Waiting for placement to rehab (2) Ambulatory dysfunction: (3) Frequent falls: Plan: Mostly related to chronic alcohol abuse CT head showed no acute intracranial abnormality Continue PT/OT eval Waiting for placement to rehab (4) Alcohol use disorder: Plan: Ongoing etoh abuse, denying drink for over a week but etoh level 40 today. Also with component of dementia 2/2 longstanding etoh use History of DTs in setting of withdrawal in the past Pt said last drink was 2/16 On Gabapentin and ativan for alcohol withdrawal protocol Banana bag, Thiamine and Folic acid in AM Counseling on smoking cessation (5) Chronic hyponatremia: Plan: Sodium of 124 in setting of chronic etoh use, non-compliance with home salt tabs - baseline Na closer to 130 During previous admissions, nephro has recommended sodium tablets, fluid restriction of 1200 ml Sodium 131 today Starting on salt tablet Continue 1.5L fluid restriction Continue monitor BMP (6) Hypomagnesemia: Plan: Mg 1.6 today Magnesium replaced Continue monitor mg level (7) Hypokalemia: Plan: K 3.6 today Continue monitor BMP (8) Dysphagia: Plan: H/o esophageal stricture in the past s/p dilation by GI. Need pill crushed, has tolerated soft diet previously without issue. Aspiration precautions Hypertension BP has been fluctuated Patient was on BP med with amlodipine 10 mg but has not been taken it for month Will start on amlodipine 5 mg Continue monitor BP DVT Ppx: SCDs for now - h/o recurrent falls Code status: FULL PCP: Manasa Disposition Waiting for placement to rehab Admission and Anticipated Discharge Date Admission Date: September 06, 2021 Subjective Patient was seen and examined for follow-up of weakness, fall and postop right elbow fracture Lying in bed with no acute distress His pain improves Denies any chest pain, palpitation, dizziness, shortness of breath. Review of Systems Review of Systems: All systems reviewed & are unremarkable except as noted in Subjective Physical Exam Physical Exam: General- No acute distress Head- atraumatic Eyes- PERRL, EOMI, ENT- Decrease hearing function Neck- supple, no JVD Lungs- clear to auscultation Heart- regular rhythm; no murmur Abdomen- normal bowel sounds, soft, nontender Extremities- +RUE in splint, right elbow pain Neuro- alert, oriented x 3; PERRL, EOMI; no facial palsy; no dysarthria Skin- warm & dry Results & Data Results & Data ([facility]) Vital Signs (Past 12 Hours) Vital Signs Temp Pulse Resp BP Pulse Ox 09/12/21 15:50 37.2 C 75 17 157/92 H 97 09/12/21 09:02 37.5 C 88 17 123/81 95
[2021-09-13] MEDS: oxyCODONE HCL IR 5 MG TAB (IMMEDIATE RELEASE) PO PRN ×3 (07:18→19:50)
[2021-09-13] MEDS: ACETAMINOPHEN 500 MG TAB PO PRN ×3 (07:19→19:49)
[2021-09-13 07:41] LABS: Calcium 7.8 mg/dl (8.5-10.1); Creatinine Clr Calc Pharmacy 160.4 ml/min; Est GFR (African American) 144.3 ml/min; Est GFR (Non-African American) 124.5 ml/min; Magnesium 1.7 mg/dl (1.7-2.4); Potassium 3.5 mmol/L (3.5-5.1)
[2021-09-13] MEDS: THIAMINE HCL 100 MG TAB PO SCH (09:05)
[2021-09-13] MEDS: amLODIPine BESYLATE 5 MG TAB PO SCH (09:05)
[2021-09-13] MEDS: FOLIC ACID 1 MG TAB PO SCH (09:05)
[2021-09-13] MEDS: SODIUM CHLORIDE 1 GM TABLET PO SCH ×2 (09:05→19:53)
--- NOTE | 2021-09-13 22:47 | Hospitalist Progress Note ---
Date of Service September 13, 2021 Assessment & Plan (1) Fracture of olecranon process, right, closed: Plan: This is a 56yo M with a PMH of chronic alcoholism, hypertension, chronic hyponatremia, history of ambulatory dysfunction, history of esophageal stenosis status post dilation who presents after multiple falls this morning and was found to have R olecranon fracture as well as multiple electrolyte disturbances in setting of ongoing etoh abuse. Two falls this morning. 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 Fracture distracted by approximately 9 mm. Associated right elbow joint effusion ED provider discussed with Dr. Martinez, who recommended splinting and orthopedic evaluation No acute findings in CT head, cervical spine CT or CXR S/P Right open reduction internal fixation olecranon fracture performed by Dr. Martinez on 09/09/21 No post op complication Continue pain control Ortho recommended to continue posterior splint for about 4 weeks. Follow up with ortho in 2 weeks for staple removals and x-ray. Stable from ortho standpoint to discharge Waiting for placement to rehab (2) Ambulatory dysfunction: (3) Frequent falls: Plan: Mostly related to chronic alcohol abuse CT head showed no acute intracranial abnormality Continue PT/OT eval Waiting for placement to rehab (4) Alcohol use disorder: Plan: Ongoing etoh abuse, denying drink for over a week but etoh level 40 today. Also with component of dementia 2/2 longstanding etoh use History of DTs in setting of withdrawal in the past Pt said last drink was 09/01/21 On Gabapentin and ativan for alcohol withdrawal protocol Banana bag, Thiamine and Folic acid in AM Counseling on smoking cessation (5) Chronic hyponatremia: Plan: Sodium of 124 in setting of chronic etoh use, non-compliance with home salt tabs - baseline Na closer to 130 During previous admissions, nephro has recommended sodium tablets, fluid restriction of 1200 ml Sodium 129 today Starting on salt tablet Continue 1.5L fluid restriction Continue monitor BMP (6) Hypomagnesemia: Plan: Mg 1.7 today Magnesium replaced Continue monitor mg level (7) Hypokalemia: Plan: K 3.5 today Continue monitor BMP (8) Dysphagia: Plan: H/o esophageal stricture in the past s/p dilation by GI. Need pill crushed, has tolerated soft diet previously without issue. Aspiration precautions Hypertension BP has been fluctuated Patient was on BP med with amlodipine 10 mg but has not been taken it for month Continue amlodipine 5 mg Continue monitor BP DVT Ppx: SCDs for now - h/o recurrent falls Code status: FULL PCP: Manasa Disposition Waiting for placement to rehab Admission and Anticipated Discharge Date Admission Date: September 06, 2021 Subjective Patient was seen and examined for follow-up of weakness, fall and postop right elbow fracture Sitting in chair with no acute distress eating lunch. Urinating the Denies any chest pain, palpitation, dizziness, shortness of breath. Review of Systems Review of Systems: All systems reviewed & are unremarkable except as noted in Subjective Physical Exam Physical Exam: General- No acute distress Head- atraumatic Eyes- PERRL, EOMI, ENT- Decrease hearing function Neck- supple, no JVD Lungs- clear to auscultation Heart- regular rhythm; no murmur Abdomen- normal bowel sounds, soft, nontender Extremities- +RUE in splint, right elbow pain Neuro- alert, oriented x 3; PERRL, EOMI; no facial palsy; no dysarthria Skin- warm & dry Results & Data Results & Data ([facility]) Vital Signs (Past 12 Hours) Vital Signs Temp Pulse Resp BP Pulse Ox 09/13/21 21:48 36.8 C 68 18 172/89 H 97 09/13/21 15:13 37.3 C 74 16 138/79 94
[2021-09-14] MEDS: oxyCODONE HCL IR 5 MG TAB (IMMEDIATE RELEASE) PO PRN ×3 (02:06→15:18)
[2021-09-14] MEDS: ACETAMINOPHEN 500 MG TAB PO PRN ×3 (02:06→15:19)
[2021-09-14 07:31] LABS: BUN Creatinine Ratio 13.7 (10-20); Creatinine Clr Calc Pharmacy 144.7 ml/min; Est GFR (African American) 138.3 ml/min; Est GFR (Non-African American) 119.3 ml/min; Potassium 3.5 mmol/L (3.5-5.1)
[2021-09-14] MEDS: SODIUM CHLORIDE 1 GM TABLET PO SCH ×2 (08:04→21:26)
[2021-09-14] MEDS: THIAMINE HCL 100 MG TAB PO SCH (08:04)
[2021-09-14] MEDS: amLODIPine BESYLATE 5 MG TAB PO SCH (08:04)
[2021-09-14] MEDS: FOLIC ACID 1 MG TAB PO SCH (08:04)
--- NOTE | 2021-09-14 23:38 | Hospitalist Progress Note ---
Date of Service September 14, 2021 Assessment & Plan (1) Fracture of olecranon process, right, closed: Plan: This is a 56yo M with a PMH of chronic alcoholism, hypertension, chronic hyponatremia, history of ambulatory dysfunction, history of esophageal stenosis status post dilation who presents after multiple falls this morning and was found to have R olecranon fracture as well as multiple electrolyte disturbances in setting of ongoing etoh abuse. Two falls this morning. 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 Fracture distracted by approximately 9 mm. Associated right elbow joint effusion ED provider discussed with Dr. Martinez, who recommended splinting and orthopedic evaluation No acute findings in CT head, cervical spine CT or CXR S/P Right open reduction internal fixation olecranon fracture performed by Dr. Martinez on 09/09/21 No post op complication Continue pain control Ortho recommended to continue posterior splint for about 4 weeks. Follow up with ortho in 2 weeks for staple removals and x-ray. Stable from ortho standpoint to discharge Waiting for placement to rehab (2) Ambulatory dysfunction: (3) Frequent falls: Plan: Mostly related to chronic alcohol abuse CT head showed no acute intracranial abnormality Continue PT/OT eval Waiting for placement to rehab (4) Alcohol use disorder: Plan: Ongoing etoh abuse, denying drink for over a week but etoh level 40 today. Also with component of dementia 2/2 longstanding etoh use History of DTs in setting of withdrawal in the past Pt said last drink was 09/01/21 On Gabapentin and ativan for alcohol withdrawal protocol Banana bag, Thiamine and Folic acid in AM Counseling on smoking cessation (5) Chronic hyponatremia: Plan: Sodium of 124 in setting of chronic etoh use, non-compliance with home salt tabs - baseline Na closer to 130 During previous admissions, nephro has recommended sodium tablets, fluid restriction of 1200 ml Sodium 131 today Starting on salt tablet Continue 1.5L fluid restriction Continue monitor BMP (6) Hypomagnesemia: Plan: Mg 1.7 today Magnesium replaced Continue monitor mg level (7) Hypokalemia: Plan: K 3.5 today Continue monitor BMP (8) Dysphagia: Plan: H/o esophageal stricture in the past s/p dilation by GI. Need pill crushed, has tolerated soft diet previously without issue. Aspiration precautions Hypertension BP has been fluctuated Patient was on BP med with amlodipine 10 mg but has not been taken it for month Continue amlodipine 5 mg Continue monitor BP DVT Ppx: SCDs for now - h/o recurrent falls Code status: FULL PCP: Manasa Disposition Waiting for placement to rehab Admission and Anticipated Discharge Date Admission Date: September 06, 2021 Subjective Patient was seen and examined for follow-up of weakness, fall and postop right elbow fracture Lying in bed with no acute distress watching TV Denies any chest pain, palpitation, dizziness, shortness of breath. Review of Systems Review of Systems: All systems reviewed & are unremarkable except as noted in Subjective Physical Exam Physical Exam: General- No acute distress Head- atraumatic Eyes- PERRL, EOMI, ENT- Decrease hearing function Neck- supple, no JVD Lungs- clear to auscultation Heart- regular rhythm; no murmur Abdomen- normal bowel sounds, soft, nontender Extremities- +RUE in splint, right elbow pain Neuro- alert, oriented x 3; PERRL, EOMI; no facial palsy; no dysarthria Skin- warm & dry Results & Data Results & Data ([facility]) Vital Signs (Past 12 Hours) Vital Signs Temp Pulse Resp BP Pulse Ox 09/14/21 22:57 37.1 C 72 18 169/90 H 97 09/14/21 16:01 36.5 C 84 14 134/77 93
[2021-09-15] MEDS: oxyCODONE HCL IR 5 MG TAB (IMMEDIATE RELEASE) PO PRN ×3 (00:49→20:06)
[2021-09-15] MEDS: THIAMINE HCL 100 MG TAB PO SCH (08:55)
[2021-09-15] MEDS: SODIUM CHLORIDE 1 GM TABLET PO SCH ×2 (08:55→20:06)
[2021-09-15] MEDS: FOLIC ACID 1 MG TAB PO SCH (08:55)
[2021-09-15] MEDS: amLODIPine BESYLATE 5 MG TAB PO SCH (08:56)
[2021-09-15] MEDS: ACETAMINOPHEN 500 MG TAB PO PRN ×3 (09:00→23:43)
[2021-09-15 09:19] LABS: Calcium 8.2 mg/dl (8.5-10.1); Creatinine Clr Calc Pharmacy 147.6 ml/min; Est GFR (African American) 139.4 ml/min; Est GFR (Non-African American) 120.3 ml/min; Potassium 3.8 mmol/L (3.5-5.1)
--- NOTE | 2021-09-15 17:32 | Hospitalist Progress Note ---
Date of Service September 15, 2021 Assessment & Plan (1) Fracture of olecranon process, right, closed: Plan: This is a 56yo M with a PMH of chronic alcoholism, hypertension, chronic hyponatremia, history of ambulatory dysfunction, history of esophageal stenosis status post dilation who presents after multiple falls this morning and was found to have R olecranon fracture as well as multiple electrolyte disturbances in setting of ongoing etoh abuse. Two falls this morning. 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 Fracture distracted by approximately 9 mm. Associated right elbow joint effusion ED provider discussed with Dr. Martinez, who recommended splinting and orthopedic evaluation No acute findings in CT head, cervical spine CT or CXR S/P Right open reduction internal fixation olecranon fracture performed by Dr. Martinez on 09/09/21 No post op complication Continue pain control Ortho recommended to continue posterior splint for about 4 weeks. Follow up with ortho in 2 weeks for staple removals and x-ray. Stable from ortho standpoint to discharge Minimal pain in the right elbow with movement (2) Ambulatory dysfunction: (3) Frequent falls: Plan: Mostly related to chronic alcohol abuse CT head showed no acute intracranial abnormality Continue PT/OT eval Waiting for placement to rehab (4) Alcohol use disorder: Plan: Ongoing etoh abuse, denying drink for over a week but etoh level 40 today. Also with component of dementia 2/2 longstanding etoh use History of DTs in setting of withdrawal in the past Pt said last drink was 09/01/21 On Gabapentin and ativan for alcohol withdrawal protocol Banana bag, Thiamine and Folic acid in AM Counseling on smoking cessation (5) Chronic hyponatremia: Plan: Sodium of 124 in setting of chronic etoh use, non-compliance with home salt tabs - baseline Na closer to 130 During previous admissions, nephro has recommended sodium tablets, fluid restriction of 1200 ml Sodium 131 today Starting on salt tablet Continue 1.5L fluid restriction Continue monitor BMP-sodium remains low at 127 Fluid restriction will be continued at about 1500 ml We will continue sodium tablet (6) Hypomagnesemia: Plan: Mg 1.7 today Magnesium replaced Continue monitor mg level (7) Hypokalemia: Plan: K 3.5 today Continue monitor BMP (8) Dysphagia: Plan: H/o esophageal stricture in the past s/p dilation by GI. Need pill crushed, has tolerated soft diet previously without issue. Aspiration precautions Hypertension BP has been fluctuated Patient was on BP med with amlodipine 10 mg but has not been taken it for month Continue amlodipine 5 mg Continue monitor BP DVT Ppx: SCDs for now - h/o recurrent falls Code status: FULL PCP: Man[facility] Disposition Awaiting placement Admission and Anticipated Discharge Date Admission Date: September 06, 2021 Subjective 09/15/2021 The patient was seen and examined in medical floor He has been stable and asking for more fluid He denies any symptoms and awaiting placement Review of Systems Review of Systems: All systems reviewed and are unremarkable except as noted below Physical Exam Physical Exam: Sitting on bed with minimal pain in the right upper extremity near around elbow Constitutional: + thin; not ill appearing Eyes: PERRL, conjunctivae normal, anicteric sclerae ENMT: external ear and nose normal, oropharynx normal Neck: trachea midline, no thyromegaly Respiratory: no respiratory distress Auscultation: lungs clear to auscultation bilaterally Cardiovascular: Rate/Rhythm: regular rate and regular rhythm; not tachycardic Heart Sounds: normal S1 and normal S2; no murmur Extremities: + edema (Trace edema bilaterally) Gastrointestinal (Abdomen): Inspection/Auscultation: normal bowel sounds; abdomen not distended Percussion/Palpation: abdomen soft; abdomen nontender Musculoskeletal: Pain in the elbow with movement of the right upper extremity Neurologic: Alert, awake and oriented x3 Results & Data Results & Data ([facility]) Vital Signs (Past 12 Hours) Vital Signs Temp Pulse Resp BP Pulse Ox 09/15/21 16:00 36.9 C 91 H 18 128/77 93 09/15/21 12:11 36.7 C 72 18 145/81 H 94 09/15/21 07:58 36.6 C 85 18 156/93 H 95 Laboratory Results [facility] 09/15/21 08:15 Sodium 127 L Potassium 3.8 Chloride 97 L Carbon Dioxide 22 BUN 8 Creatinine 0.50 L Glucose 90 Calcium 8.2 L Medications Administered Current Inpatient Medications Acetaminophen (Acetaminophen 500 Mg Tab) 1,000 mg PO Q6H PRN PRN Reason: MILD Pain Stop: 10/09/21 18:22 Last Admin: 09/15/21 15:57 Dose: 1,000 mg Documented by: Amlodipine Besylate (Amlodipine Besylate 5 Mg Tab) [facility] [place] Stop: 10/13/21 08:59 Last Admin: 09/15/21 08:56 Dose: 5 mg Documented by: Folic Acid (Folic Acid 1 Mg Tab) 1 mg PO QAM [facility] Stop: 10/06/21 22:20 Last Admin: 09/15/21 08:55 Dose: 1 mg Documented by: Ondansetron HCl (Ondansetron Inj 2 Mg/Ml 2 Ml Vial) 4 mg IV Q6H PRN PRN Reason: Nausea Stop: 10/06/21 22:20 Oxycodone HCl (Oxycodone Hcl Ir 5 Mg Tab (Immediate Release)) 5 mg PO Q6H PRN PRN Reason: MODERATE-SEVERE Pain Stop: 09/23/21 18:22 Last Admin: 09/15/21 13:57 Dose: 5 mg Documented by: Polyethylene Glycol (Polyethylene (Miralax) 17 Gm Pack) 17 gm PO DAILY PRN PRN Reason: Constipation Stop: 10/06/21 22:20 Sodium Chloride (Sodium Chloride 1 Gm Tablet) 1 gm PO BID [facility] Stop: 10/13/21 20:59 Last Admin: 09/15/21 08:55 Dose: 1 gm Documented by: Thiamine HCl (Thiamine Hcl 100 Mg Tab) 100 mg [facility] [place] Stop: 10/06/21 22:20 Last Admin: 09/15/21 08:55 Dose: 100 mg Documented by:
[2021-09-16] MEDS ORDERED: HYDROmorphone INJ 0.5 MG/0.5 ML SYR IV STA (01:06)
[2021-09-16] MEDS ORDERED: oxyCODONE HCL IR 5 MG TAB (IMMEDIATE RELEASE) PO STA (01:12)
--- NOTE | 2021-09-16 07:55 | CT Scan Report ---
CT head/brain wo con CLINICAL HISTORY: persisitent headache COMPARISON STUDY: 09/06/2021 CT DOSE: 614.27 mGy.cm TECHNIQUE: Standard CT of the Brain was performed without IV contrast. A dose lowering technique was utilized adhering to the principles of ALARA. FINDINGS: Extraaxial space: There is no evidence for subdural hematoma. There are no extra-axial fluid collecti ons. Ventricles and cisterns: The ventricles are mildly dilated bilaterally. There is no evidence for mid line shift or mass effect. Parenchyma: There is no subarachnoid or intraparenchymal hemorrhage. There is no evidence for an acu te infarct or cerebral edema. There is mild cerebral cortical atrophy and decreased attenuation in th e periventricular white matter representing remote small vessel disease. There are no gross mass lesi ons. Osseous structures: There is no evidence for an acute fracture. The visualized paranasal sinuses are clear. The mastoid air cells are clear bilaterally. Soft tissues: There is no evidence for focal soft tissue swelling. IMPRESSION: 1. No acute intracerebral pathology. 2. Cerebral cortical atrophy and remote small vessel disease. ACT 112: Negative or not required by law. Electronically signed by: David Rojas M.D. 09/16/2021 7:53 AM
[2021-09-16] MEDS: oxyCODONE HCL IR 5 MG TAB (IMMEDIATE RELEASE) PO PRN ×2 (08:07→19:22)
[2021-09-16] MEDS: ACETAMINOPHEN 500 MG TAB PO PRN ×2 (08:07→19:23)
[2021-09-16] MEDS: amLODIPine BESYLATE 5 MG TAB PO SCH (08:08)
[2021-09-16] MEDS: SODIUM CHLORIDE 1 GM TABLET PO SCH ×2 (08:08→21:00)
[2021-09-16] MEDS: FOLIC ACID 1 MG TAB PO SCH (08:08)
[2021-09-16] MEDS: THIAMINE HCL 100 MG TAB PO SCH (08:08)
[2021-09-16 14:30] LABS: BUN Creatinine Ratio 15.5 (10-20); Calcium 8.9 mg/dl (8.5-10.1); Creatinine Clr Calc Pharmacy 127.2 ml/min; Est GFR (African American) 131.2 ml/min; Est GFR (Non-African American) 113.2 ml/min; Potassium 3.6 mmol/L (3.5-5.1)
--- NOTE | 2021-09-16 16:38 | Hospitalist Progress Note ---
Date of Service September 16, 2021 Assessment & Plan (1) Fracture of olecranon process, right, closed: Plan: This is a 56yo M with a PMH of chronic alcoholism, hypertension, chronic hyponatremia, history of ambulatory dysfunction, history of esophageal stenosis status post dilation who presents after multiple falls this morning and was found to have R olecranon fracture as well as multiple electrolyte disturbances in setting of ongoing etoh abuse. Two falls this morning. 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 Fracture distracted by approximately 9 mm. Associated right elbow joint effusion ED provider discussed with Dr. Martinez, who recommended splinting and orthopedic evaluation No acute findings in CT head, cervical spine CT or CXR S/P Right open reduction internal fixation olecranon fracture performed by Dr. Martinez on 09/09/21 No post op complication Continue pain control Ortho recommended to continue posterior splint for about 4 weeks. Follow up with ortho in 2 weeks for staple removals and x-ray. Stable from ortho standpoint to discharge Minimal pain in the right elbow with movement (2) Ambulatory dysfunction: (3) Frequent falls: Plan: Mostly related to chronic alcohol abuse CT head showed no acute intracranial abnormality Continue PT/OT eval Waiting for placement to rehab (4) Alcohol use disorder: Plan: Ongoing etoh abuse, denying drink for over a week but etoh level 40 today. Also with component of dementia 2/2 longstanding etoh use History of DTs in setting of withdrawal in the past Pt said last drink was 09/01/21 On Gabapentin and ativan for alcohol withdrawal protocol Banana bag, Thiamine and Folic acid in AM Counseling on smoking cessation (5) Headache: Plan: Endorsing headache for past few days. No photophobia or phonophobia. Improves with ice. No improvement noted after receiving Tylenol or Oxycodone CT head with no acute intracerebral pathology. Cerebral cortical atrophy and remote small vessel disease Encouraged repositioning, sitting in chair and ambulating with assistance. Continue ice PRN (6) Chronic hyponatremia: Plan: Sodium of 124 in setting of chronic etoh use, non-compliance with home salt tabs - baseline Na closer to 130 During previous admissions, nephro has recommended sodium tablets, fluid restriction of 1200 ml Sodium 131 today Starting on salt tablet Continue 1.5L fluid restriction Continue monitor BMP-sodium remains low at 127 Fluid restriction continued at about 1500 ml Continue sodium tablet (7) Hypomagnesemia: Plan: Mg 1.7 today Magnesium replaced Continue monitor mg level (8) Hypokalemia: Plan: K 3.5 today Continue monitor BMP (9) Dysphagia: Plan: H/o esophageal stricture in the past s/p dilation by GI. Need pill crushed, has tolerated soft diet previously without issue. Aspiration precautions Hypertension BP has been fluctuated Patient was on BP med with amlodipine 10 mg but has not been taken it for month Continue amlodipine 5 mg Continue monitor BP DVT Ppx: SCDs for now - h/o recurrent falls Code status: FULL PCP: [facility] Disposition Awaiting placement Admission and Anticipated Discharge Date Admission Date: September 06, 2021 Supervising Physician Co-Signing Physician Notes Attending addendum The patient was seen and examined in medical floor He has been waiting to go to rehab He has significant ambulatory dysfunction secondary to alcoholism On examination No apparent distress at rest Hemodynamically stable Chest-clear Heart-S1-S2, regular Abdomen-benign Extremities-negative for any edema Labs reviewed Sodium level has come up to 131 [address] placed Agree with assessment and plan as outlined above by GANGA Ley DR Subjective Patient was seen and examined in 384-1. Remains stable without new symptoms. Continues to endorse frontal headache made better with ice. Received Tylenol and oxycodone without improvement. No photophobia or phonophobia. No fever, chills, CP, SOB, N/V, abdominal pain, dysuria, diarrhea or constipation. Review of Systems Review of Systems: All systems reviewed and are unremarkable except as noted below Physical Exam Physical Exam: Gen: WD/WN, NAD, sitting in bed, appears frail, A&Ox3, + poor insight HEENT: Normocephalic, atraumatic, conjunctivae moist, sclerae anicteric, mucous membranes moist Lung: Clear to Auscultation bilaterally, no wheezes/rales/rhonchi Heart: Regular rate, regular rhythm, no murmurs, rubs, or gallops Abdomen: Soft, NT, ND +BS x 4 Extremities: RUE wrapped, no edema Skin: Warm, no rash Results & Data Results & Data ([facility]) Vital Signs (Past 12 Hours) Vital Signs Temp Pulse Resp BP Pulse Ox 09/16/21 15:30 37.2 C 68 14 143/83 H 94 09/16/21 07:37 37.3 C 76 18 155/92 H 95 Laboratory Results BMP 09/16/21 13:43 Sodium 131 L Potassium 3.6 Chloride 99 Carbon Dioxide 24 BUN 9 Creatinine 0.58 L Glucose 99 Calcium 8.9 Diagnostic Findings Cervical Spine CT 09/06/21 14:[address] DOSE: 975.04 mGy.cm HISTORY: fall TECHNIQUE: Multiaxial CT images of the cervical spine were performed and reformatted in the sagittal and coronal plane without the use of contrast. A dose lowering technique was utilized adhering to the principles of ALARA. COMPARISON: Cervical spine CT 07/17/2019. FINDINGS: No fractures. No subluxation. Prevertebral soft tissues and the C1-C2 interval are intact. The C5-C6 vertebral bodies remain fused. There is moderate to severe disc space narrowing at C3-C4, C4-C5, and C6-C7. Straightening of the cervical spine. IMPRESSION: No fractures within the cervical spine. ACT 112: Negative or not required by law. Electronically signed by: Jigar Cassidy M.D. 09/06/2021 3:18 PM Chest X-Ray 09/06/21 14:14 XR chest 1V portable HISTORY: Fall. weakness COMPARISON: Chest 08/06/2020. FINDINGS: No pneumothorax. No pleural effusions. The heart is top normal in size. A few small left basilar linear densities favor subsegmental atelectasis or scarring. Otherwise, no focal lung consolidations to suggest pneumonia. No evidence for pulmonary edema. Old, healed left-sided rib fractures and an old distal left clavicle fracture remain unchanged. IMPRESSION: No significant change compared to the prior study. No acute process. ACT 112: Negative or not required by law. Electronically signed by: Jigar Cassidy M.D. 09/06/2021 3:06 PM Elbow X-Ray 09/06/21 14:14 XR elbow RT 2V CLINICAL HISTORY: fall, significant posterior contusion COMPARISON: Right forearm radiographs August 19, 2018. FINDINGS: There is evidence for a right elbow joint effusion. Note is made of an acute olecranon fracture with intra-articular extension. Fracture is displaced by approximately 9 mm. No additional fractures are identified. IMPRESSION: 1. Acute olecranon fracture with intra-articular extension. Fracture distracted by approximately 9 mm. 2. Associated right elbow joint effusion. ACT 112: Negative or not required by law. Electronically signed by: Kalin Roberts M.D. 09/06/2021 3:[address] 09/06/21 14:14 CT SCAN OF THE BRAIN WITHOUT IV CONTRAST CLINICAL HISTORY: Fall. COMPARISON STUDY: CT of the brain dated 08/02/2019. TECHNIQUE: Unenhanced axial CT scan of the brain is performed from the vertex to the skull base. A dose lowering technique was utilized adhering to the principles of ALARA. FINDINGS: Brain parenchyma: There are age-related involutional changes noting mild subcortical and periventricular microangiopathic change. There is no hemorrhage, mass effect, or evidence of acute territorial ischemia by CT criteria. A chronic lacunar infarct is noted in the left caudate head. Yun-white matter differ entiation is preserved. No extra-axial fluid collection is seen. Mineralization is noted in the basal ganglia. Ventricles, sulci, cisterns: Prominent secondary to involutional change. Intracranial vasculature: There is atherosclerotic calcification of the cavernous carotid and vertebral arteries. Calvarium: The skeletal structures are osteopenic. No depressed calvarial fracture is identified. Sinuses and mastoids: The visualized paranasal sinuses are clear. The mastoid air cells are well pneumatized. Orbits: The bony orbits are grossly intact. IMPRESSION: There is no hemorrhage, mass effect, or evidence of acute territorial ischemia by CT criteria. ACT 112: Negative or not required by law. Electronically signed by: Froy Lau M.D. 09/06/2021 3:19 PM Elbow X-Ray 09/09/21 15:00 FL elbow RT 3V RTN CLINICAL HISTORY: RT ORIF OLECRANON FX COMPARISON STUDY: Right elbow radiographs September 06, 2021. FLUOROSCOPY TIME: 41 seconds. FLUOROSCOPIC IMAGES: 2 FINDINGS: Fluoroscopy was provided during internal fixation of the right olecranon fracture with plate and screws. Hardware is intact. There are no unexpected radiopaque foreign bodies. Fracture alignment appears anatomic. IMPRESSION: Fluoroscopy provided during internal fixation of the right olecranon fracture. ACT 112: Negative or not required by law. Electronically signed by: Kalin Roberts M.D. 09/09/2021 5:[address] 09/16/21 03:27 CT head/brain wo con CLINICAL HISTORY: persisitent headache COMPARISON STUDY: 09/06/2021 CT DOSE: 614.27 mGy.cm TECHNIQUE: Standard CT of the Brain was performed without IV contrast. A dose lowering technique was utilized adhering to the principles of ALARA. FINDINGS: Extraaxial space: There is no evidence for subdural hematoma. There are no extra-axial fluid collections. Ventricles and cisterns: The ventricles are mildly dilated bilaterally. There is no evidence for midline shift or mass effect. Parenchyma: There is no subarachnoid or intraparenchymal hemorrhage. There is no evidence for an acute infarct or cerebral edema. There is mild cerebral regan ical atrophy and decreased attenuation in the periventricular white matter representing remote small vessel disease. There are no gross mass lesions. Osseous structures: There is no evidence for an acute fracture. The visualized paranasal sinuses are clear. The mastoid air cells are clear bilaterally. Soft tissues: There is no evidence for focal soft tissue swelling. IMPRESSION: 1. No acute intracerebral pathology. 2. Cerebral cortical atrophy and remote small vessel disease. ACT 112: Negative or not required by law. Electronically signed by: David Rojas M.D. 09/16/2021 7:53 AM
[2021-09-17] MEDS: FOLIC ACID 1 MG TAB PO SCH (07:54)
[2021-09-17] MEDS: amLODIPine BESYLATE 5 MG TAB PO SCH (07:54)
[2021-09-17] MEDS: THIAMINE HCL 100 MG TAB PO SCH (07:55)
[2021-09-17] MEDS: SODIUM CHLORIDE 1 GM TABLET PO SCH ×2 (07:55→20:18)
[2021-09-17] MEDS: oxyCODONE HCL IR 5 MG TAB (IMMEDIATE RELEASE) PO PRN ×2 (07:56→16:35)
[2021-09-17] MEDS: ACETAMINOPHEN 500 MG TAB PO PRN ×2 (07:57→16:46)
--- NOTE | 2021-09-17 14:12 | Hospitalist Progress Note ---
Date of Service September 17, 2021 Assessment & Plan (1) Fracture of olecranon process, right, closed: Plan: This is a 56yo M with a PMH of chronic alcoholism, hypertension, chronic hyponatremia, history of ambulatory dysfunction, history of esophageal stenosis status post dilation who presents after multiple falls this morning and was found to have R olecranon fracture as well as multiple electrolyte disturbances in setting of ongoing etoh abuse. Two falls this morning. 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 Fracture distracted by approximately 9 mm. Associated right elbow joint effusion ED provider discussed with Dr. Martinez, who recommended splinting and orthopedic evaluation No acute findings in CT head, cervical spine CT or CXR S/P Right open reduction internal fixation olecranon fracture performed by Dr. Martinez on 09/09/21 No post op complication Continue pain control Ortho recommended to continue posterior splint for about 4 weeks. Follow up with ortho in 2 weeks for staple removals and x-ray. Stable from ortho standpoint to discharge Minimal pain in the right elbow with movement (2) Ambulatory dysfunction: (3) Frequent falls: Plan: Mostly related to chronic alcohol abuse CT head showed no acute intracranial abnormality Continue PT/OT - last worked with them on 09/15/21 Waiting for placement to rehab (4) Alcohol use disorder: Plan: Ongoing etoh abuse, denying drink for over a week but etoh level 40 today. Also with component of dementia 2/2 longstanding etoh use History of DTs in setting of withdrawal in the past Pt said last drink was 09/01/21 On Gabapentin and ativan for alcohol withdrawal protocol Continue Thiamine and Folic acid qAM Counseling on smoking cessation (5) Headache: Plan: Endorsing headache for past few days. No photophobia or phonophobia. Improves with ice. No improvement noted after receiving Tylenol or Oxycodone CT head with no acute intracerebral pathology. Cerebral cortical atrophy and remote small vessel disease Encouraged repositioning, sitting in chair and ambulating with assistance. Continue ice PRN -> improved today (6) Chronic hyponatremia: Plan: Sodium of 124 in setting of chronic etoh use, non-compliance with home salt tabs - baseline Na closer to 130 During previous admissions, nephro has recommended sodium tablets, fluid restriction of 1200 ml Sodium 131 today Starting on salt tablet Continue 1.5L fluid restriction Continue monitor BMP-sodium remains low at 127 Fluid restriction continued at about 1500 ml Continue sodium tablet (7) Hypomagnesemia: Plan: Mg 1.7 today Magnesium replaced Continue monitor mg level (8) Hypokalemia: Plan: K 3.5 today Continue monitor BMP (9) Dysphagia: Plan: H/o esophageal stricture in the past s/p dilation by GI. Need pill crushed, has tolerated soft diet previously without issue. Aspiration precautions Hypertension BP has been fluctuated Patient was on BP med with amlodipine 10 mg but has not been taken it for month Continue amlodipine 5 mg Continue monitor BP DVT Ppx: SCDs for now - h/o recurrent falls Code status: FULL PCP: [facility] Disposition Awaiting placement Admission and Anticipated Discharge Date Admission Date: September 06, 2021 Supervising Physician Co-Signing Physician Notes Attending addendum The patient was seen and examined in medical telemetry unit He continues to have ambulatory dysfunction and requires continued physical therapy Awaiting placement On examination Hemodynamically stable Chest-clear to auscultate bilaterally Heart-S1, S2, regular Abdomen-benign Extremities-negative Labs and medications reviewed Remains stable with alcoholism and ambulatory dysfunction Awaiting placement Agree with assessment and plan as outlined above by GANGA Ley DR Subjective Patient was seen and examined in 384-1. Remains stable without new symptoms. Denies any recurrent headache yesterday afternoon. Interested in continuing to work with therapy and ambulating. No fever, chills, CP, SOB, N/V, abdominal pain, dysuria, diarrhea or constipation. Review of Systems Review of Systems: All systems reviewed and are unremarkable except as noted below Physical Exam Physical Exam: Gen: WD/WN, NAD, sitting in bed, appears frail, A&Ox3, + poor insight HEENT: Normocephalic, atraumatic, conjunctivae moist, sclerae anicteric, mucous membranes moist Lung: Clear to Auscultation bilaterally, no wheezes/rales/rhonchi Heart: Regular rate, regular rhythm, no murmurs, rubs, or gallops Abdomen: Soft, NT, ND +BS x 4 Extremities: RUE wrapped, no edema Skin: Warm, no rash Results & Data Results & Data ([facility]) Vital Signs (Past 12 Hours) Vital Signs Temp Pulse Resp BP Pulse Ox 09/17/21 07:20 37.3 C 68 16 159/92 H 96
[2021-09-18] MEDS: ACETAMINOPHEN 500 MG TAB PO PRN ×3 (00:32→18:53)
[2021-09-18] MEDS: oxyCODONE HCL IR 5 MG TAB (IMMEDIATE RELEASE) PO PRN ×2 (00:32→18:53)
[2021-09-18 07:28] LABS: Hematocrit (blood only) 36.2 % (42-52); Hemoglobin 12.1 g/dL (14.0-18.0); Mean Corpuscular Hemoglobin 30.4 pg (25-34); Mean Corpuscular Hgb Conc 33.4 g/dL (32-36); Mean Platelet Volume 8.1 fL (7.4-10.4); Platelet Count 559 K/uL (130-400); RDW Coefficient of Variation 15.2 % (11.5-14.5); Red Blood Count 3.98 M/uL (4.7-6.1); White Blood Count 7.19 K/uL (4.8-10.8)
--- NOTE | 2021-09-18 07:28 | Orthopedic Progress Note ---
Date of Service September 18, 2021 Assessment & Plan (1) Fracture of right olecranon process: Overall is doing well with the right elbow. I am just checking in on him. Right now he is 9 days out from the procedure. We can remove the splint and remove the geovanna when he is more than 2 weeks out. He is orthopedically stable for discharge when medically ready or when a bed becomes available Full orthopedic discharge instructions were placed in the discharge summary. Thuy Walker was seen and examined at bedside this morning. Overall he is doing fairly well with his elbow. Is not having too much elbow pain. He is little bit frustrated that he has not been able to go to a rehab facility yet. He says get a little bit stronger in his legs but he still has a lot of weakness. His elbow seems to be doing well. Review of Systems All systems reviewed & are unremarkable except as noted in HPI & below. Physical Exam On physical examination the right elbow, his radial, median, and ulnar nerves are checked intact at his wrist. The elbow splint is in place. He seems pretty comfortable with it. Results & Data Results & Data Laboratory Results . Diagnostic Findings . PG Care Time/CCT Total # of Minutes Spent Total Time Spent with Patient: Total time spent is greater than 50% in coordination of care (as documented) at patient's floor/unit and/or counseling patient: Coding Level of Care Code 71258 Post Operative Follow-Up Diagnoses Fracture of right olecranon process S52.021A Encounter type: initial encounter Fracture type: closed (1) Fracture of right olecranon process Encounter type: initial encounter Fracture type: closed Qualified Code(s): S52.021A - Displaced fracture of olecranon process without intraarticular extension of right ulna, initial encounter for closed fracture
[2021-09-18 07:53] LABS: BUN Creatinine Ratio 19.1 (10-20); Calcium 8.2 mg/dl (8.5-10.1); Est GFR (Non-African American) 123.4 ml/min; Potassium 3.7 mmol/L (3.5-5.1)
[2021-09-18] MEDS: amLODIPine BESYLATE 5 MG TAB PO SCH (09:05)
[2021-09-18] MEDS: THIAMINE HCL 100 MG TAB PO SCH (09:05)
[2021-09-18] MEDS: FOLIC ACID 1 MG TAB PO SCH (09:05)
[2021-09-18] MEDS: SODIUM CHLORIDE 1 GM TABLET PO SCH ×2 (09:05→20:47)
--- NOTE | 2021-09-18 16:17 | Hospitalist Progress Note ---
Date of Service September 18, 2021 Assessment & Plan (1) Fracture of olecranon process, right, closed: Plan: This is a 56yo M with a PMH of chronic alcoholism, hypertension, chronic hyponatremia, history of ambulatory dysfunction, history of esophageal stenosis status post dilation who presents after multiple falls this morning and was found to have R olecranon fracture as well as multiple electrolyte disturbances in setting of ongoing etoh abuse. Two falls this morning. 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 Fracture distracted by approximately 9 mm. Associated right elbow joint effusion ED provider discussed with Dr. Martinez, who recommended splinting and orthopedic evaluation No acute findings in CT head, cervical spine CT or CXR S/P Right open reduction internal fixation olecranon fracture performed by Dr. Martinez on 09/09/21 No post op complication Continue pain control Ortho recommended to continue posterior splint for about 4 weeks. Follow up with ortho in 2 weeks for staple removals and x-ray. Stable from ortho standpoint to discharge Minimal pain in the right elbow with movement (2) Ambulatory dysfunction: Plan: Secondary to prolonged use of alcohol with cerebellar dysfunction Will need rehab placement (3) Frequent falls: Plan: Mostly related to chronic alcohol abuse CT head showed no acute intracranial abnormality Continue PT/OT - last worked with them on 09/15/21 Waiting for placement to rehab (4) Alcohol use disorder: Plan: Ongoing etoh abuse, denying drink for over a week but etoh level 40 today. Also with component of dementia 2/2 longstanding etoh use History of DTs in setting of withdrawal in the past Pt said last drink was 09/01/21 On Gabapentin and ativan for alcohol withdrawal protocol Continue Thiamine and Folic acid qAM Counseling on smoking cessation (5) Headache: Plan: Endorsing headache for past few days. No photophobia or phonophobia. Improves with ice. No improvement noted after receiving Tylenol or Oxycodone CT head with no acute intracerebral pathology. Cerebral cortical atrophy and remote small vessel disease Encouraged repositioning, sitting in chair and ambulating with assistance. Continue ice PRN -> improved today (6) Chronic hyponatremia: Plan: Sodium of 124 in setting of chronic etoh use, non-compliance with home salt tabs - baseline Na closer to 130 During previous admissions, nephro has recommended sodium tablets, fluid restriction of 1200 ml Sodium 131 today Starting on salt tablet Continue 1.5L fluid restriction Continue monitor BMP-sodium remains low at 127 Fluid restriction continued at about 1500 ml Continue sodium tablet Sodium level remains at 130- Fluid restriction relaxed to 1800 mL (7) Hypomagnesemia: Plan: Mg 1.7 today Magnesium replaced Continue monitor mg level (8) Hypokalemia: Plan: K 3.5 today Continue monitor BMP (9) Dysphagia: Plan: H/o esophageal stricture in the past s/p dilation by GI. Need pill crushed, has tolerated soft diet previously without issue. Aspiration precautions Hypertension BP has been fluctuated Patient was on BP med with amlodipine 10 mg but has not been taken it for month Continue amlodipine 5 mg Continue monitor BP DVT Ppx: SCDs for now - h/o recurrent falls Code status: FULL PCP: Manasa Disposition Awaiting placement Admission and Anticipated Discharge Date Admission Date: September 06, 2021 Subjective 09/15/2021 The patient was seen and examined in medical floor He has been stable and asking for more fluid He denies any symptoms and awaiting placement 09/18/2021 The patient was seen and examined in medical floor He has been feeling much better still wants to have more fluid Denies any symptoms except unsteady gait which has been chronic Review of Systems Review of Systems: All systems reviewed and are unremarkable except as noted below Physical Exam Physical Exam: Sitting on bed with minimal pain in the right upper extremity near around elbow Constitutional: + thin; not ill appearing Eyes: PERRL, conjunctivae normal, anicteric sclerae ENMT: external ear and nose normal, oropharynx normal Neck: trachea midline, no thyromegaly Respiratory: no respiratory distress Auscultation: lungs clear to auscultation bilaterally Cardiovascular: Rate/Rhythm: regular rate and regular rhythm; not tachycardic Heart Sounds: normal S1 and normal S2; no murmur Extremities: + edema (Trace edema bilaterally) Gastrointestinal (Abdomen): Inspection/Auscultation: normal bowel sounds; abdomen not distended Percussion/Palpation: abdomen soft; abdomen nontender Neurologic: Alert, awake and oriented x3 Results & Data Results & Data ([facility]) Vital Signs (Past 12 Hours) Vital Signs Temp Pulse Resp BP Pulse Ox 09/18/21 14:56 37.3 C 74 16 151/84 H 94 03/05/22 07:36 37.1 C 78 16 132/86 97 Laboratory Results Short CBC 09/18/21 Range/Units 07:06 WBC 7.19 (4.8-10.8) K/uL Hgb 12.1 L (14.0-18.0) g/dL Hct 36.2 L (42-52) % Plt Count 559 H (130-400) K/uL BMP 09/18/21 07:06 Sodium 130 L Potassium 3.7 Chloride 99 Carbon Dioxide 24 BUN 9 Creatinine 0.47 L Glucose 87 Calcium 8.2 L Medications Administered Current Inpatient Medications Acetaminophen (Acetaminophen 500 Mg Tab) 1,000 mg PO Q6H PRN PRN Reason: MILD Pain Stop: 10/09/21 18:22 Last Admin: 09/18/21 09:05 Dose: 1,000 mg Documented by: Amlodipine Besylate (Amlodipine Besylate 5 Mg Tab) 5 mg PO [facility] Stop: 10/13/21 08:59 Last Admin: 09/18/21 09:05 Dose: 5 mg Documented by: Folic Acid (Folic Acid 1 Mg Tab) 1 mg PO [facility] Stop: 10/06/21 22:20 Last Admin: 09/18/21 09:05 Dose: 1 mg Documented by: Ondansetron HCl (Ondansetron Inj 2 Mg/Ml 2 Ml Vial) 4 mg IV Q6H PRN PRN Reason: Nausea Stop: 10/06/21 22:20 Oxycodone HCl (Oxycodone Hcl Ir 5 Mg Tab (Immediate Release)) 5 mg PO Q6H PRN PRN Reason: MODERATE-SEVERE Pain Stop: 09/23/21 18:22 Last Admin: 09/18/21 00:32 Dose: 5 mg Documented by: Polyethylene Glycol (Polyethylene (Miralax) 17 Gm Pack) 17 gm PO DAILY PRN PRN Reason: Constipation Stop: 10/06/21 22:20 Sodium Chloride (Sodium Chloride 1 Gm Tablet) 1 gm PO BID [facility] Stop: 10/13/21 20:59 Last Admin: 09/18/21 09:05 Dose: 1 gm Documented by: Thiamine HCl (Thiamine Hcl 100 Mg Tab) 100 mg PO [facility] Stop: 10/06/21 22:20 Last Admin: 09/18/21 09:05 Dose: 100 mg Documented by:
[2021-09-19] MEDS: oxyCODONE HCL IR 5 MG TAB (IMMEDIATE RELEASE) PO PRN ×3 (02:27→15:06)
[2021-09-19] MEDS: ACETAMINOPHEN 500 MG TAB PO PRN ×3 (02:28→15:05)
[2021-09-19] MEDS: FOLIC ACID 1 MG TAB PO SCH (08:33)
[2021-09-19] MEDS: THIAMINE HCL 100 MG TAB PO SCH (08:33)
[2021-09-19] MEDS: amLODIPine BESYLATE 5 MG TAB PO SCH (08:33)
[2021-09-19] MEDS: SODIUM CHLORIDE 1 GM TABLET PO SCH ×2 (08:33→20:26)
--- NOTE | 2021-09-19 13:55 | Hospitalist Progress Note ---
Date of Service September 19, 2021 Assessment & Plan (1) Fracture of olecranon process, right, closed: Plan: This is a 56yo M with a PMH of chronic alcoholism, hypertension, chronic hyponatremia, history of ambulatory dysfunction, history of esophageal stenosis status post dilation who presents after multiple falls this morning and was found to have R olecranon fracture as well as multiple electrolyte disturbances in setting of ongoing etoh abuse. Two falls this morning. 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 Fracture distracted by approximately 9 mm. Associated right elbow joint effusion ED provider discussed with Dr. Martinez, who recommended splinting and orthopedic evaluation No acute findings in CT head, cervical spine CT or CXR S/P Right open reduction internal fixation olecranon fracture performed by Dr. Martinez on 09/09/21 No post op complication Continue pain control Ortho recommended to continue posterior splint for about 4 weeks. Follow up with ortho in 2 weeks for staple removals and x-ray. Stable from ortho standpoint to discharge Minimal pain in the right elbow with movement (2) Ambulatory dysfunction: Plan: Secondary to prolonged use of alcohol with cerebellar dysfunction Will need rehab placement We will need to continue PT and OT to get his ambulation status better (3) Frequent falls: Plan: Mostly related to chronic alcohol abuse CT head showed no acute intracranial abnormality Continue PT/OT - last worked with them on 09/15/21 Waiting for placement to rehab (4) Alcohol use disorder: Plan: Ongoing etoh abuse, denying drink for over a week but etoh level 40 today. Also with component of dementia 2/2 longstanding etoh use History of DTs in setting of withdrawal in the past Pt said last drink was 09/01/21 On Gabapentin and ativan for alcohol withdrawal protocol Continue Thiamine and Folic acid qAM Counseling on smoking cessation (5) Headache: Plan: Endorsing headache for past few days. No photophobia or phonophobia. Improves with ice. No improvement noted after receiving Tylenol or Oxycodone CT head with no acute intracerebral pathology. Cerebral cortical atrophy and remote small vessel disease Encouraged repositioning, sitting in chair and ambulating with assistance. Continue ice PRN -> improved today (6) Chronic hyponatremia: Plan: Sodium of 124 in setting of chronic etoh use, non-compliance with home salt tabs - baseline Na closer to 130 During previous admissions, nephro has recommended sodium tablets, fluid restriction of 1200 ml Sodium 131 today Starting on salt tablet Continue 1.5L fluid restriction Continue monitor BMP-sodium remains low at 127 Fluid restriction continued at about 1500 ml Continue sodium tablet Sodium level remains at 130- Fluid restriction relaxed to 1800 mL He still wants to have more fluid-we will continue with sodium tablet (7) Hypomagnesemia: Plan: Mg 1.7 today Magnesium replaced Continue monitor mg level (8) Hypokalemia: Plan: K 3.5 today Continue monitor BMP (9) Dysphagia: Plan: H/o esophageal stricture in the past s/p dilation by GI. Need pill crushed, has tolerated soft diet previously without issue. Aspiration precautions Hypertension BP has been fluctuated Patient was on BP med with amlodipine 10 mg but has not been taken it for month Continue amlodipine 5 mg Continue monitor BP DVT Ppx: SCDs for now - h/o recurrent falls Code status: FULL PCP: Man[facility] Disposition Awaiting placement Admission and Anticipated Discharge Date Admission Date: September 06, 2021 Subjective 09/15/2021 The patient was seen and examined in medical floor He has been stable and asking for more fluid He denies any symptoms and awaiting placement 09/18/2021 The patient was seen and examined in medical floor He has been feeling much better still wants to have more fluid Denies any symptoms except unsteady gait which has been chronic 09/19/2021 The patient was seen and examined in medical floor He has been feeling better but remains unsteady on feet He wants to drink more fluid Review of Systems Review of Systems: All systems reviewed and are unremarkable except as noted below Musculoskeletal: Pain in the right elbow and right upper extremity Physical Exam Physical Exam: Sitting on bed with minimal pain in the right upper extremity near around elbow Constitutional: + thin; not ill appearing Eyes: PERRL, conjunctivae normal, anicteric sclerae ENMT: external ear and nose normal, oropharynx normal Neck: trachea midline, no thyromegaly Respiratory: no respiratory distress Auscultation: lungs clear to auscultation bilaterally Cardiovascular: Rate/Rhythm: regular rate and regular rhythm; not tachycardic Heart Sounds: normal S1 and normal S2; no murmur Extremities: + edema (Tr yojana edema bilaterally) Gastrointestinal (Abdomen): Inspection/Auscultation: normal bowel sounds; abdomen not distended Percussion/Palpation: abdomen soft; abdomen nontender Musculoskeletal: Head/Neck/Chest: normocephalic and neck supple Neurologic: normal touch/pain/proprioception Results & Data Results & Data ([facility]) Vital Signs (Past 12 Hours) Vital Signs Temp Pulse Resp BP Pulse Ox 09/19/21 06:54 37 C 64 16 154/83 H 94 Medications Administered Current Inpatient Medications Acetaminophen (Acetaminophen 500 Mg Tab) 1,000 mg PO Q6H PRN PRN Reason: MILD Pain Stop: 10/09/21 18:22 Last Admin: 09/19/21 08:37 Dose: 1,000 mg Documented by: Amlodipine Besylate (Amlodipine Besylate 5 Mg Tab) [address] [facility] Stop: 10/13/21 08:59 Last Admin: 09/19/21 08:33 Dose: 5 mg Documented by: Folic Acid (Folic Acid 1 Mg Tab) [facility] Stop: 10/06/21 22:20 Last Admin: 09/19/21 08:33 Dose: 1 mg Documented by: Ondansetron HCl (Ondansetron Inj 2 Mg/Ml 2 Ml Vial) 4 mg IV Q6H PRN PRN Reason: Nausea Stop: 10/06/21 22:20 Oxycodone HCl (Oxycodone Hcl Ir 5 Mg Tab (Immediate Release)) 5 mg PO Q6H PRN PRN Reason: MODERATE-SEVERE Pain Stop: 09/23/21 18:22 Last Admin: 09/19/21 08:37 Dose: 5 mg Documented by: Polyethylene Glycol (Polyethylene (Miralax) 17 Gm Pack) 17 gm PO DAILY PRN PRN Reason: Constipation Stop: 10/06/21 22:20 Sodium Chloride (Sodium Chloride 1 Gm Tablet) 1 gm PO BID [facility] Stop: 10/13/21 20:59 Last Admin: 09/19/21 08:33 Dose: 1 gm Documented by: Thiamine HCl (Thiamine Hcl 100 Mg Tab) 100 mg PO QAM [facility] Stop: 10/06/21 22:20 Last Admin: 09/19/21 08:33 Dose: 100 mg Documented by:
[2021-09-20] MEDS: oxyCODONE HCL IR 5 MG TAB (IMMEDIATE RELEASE) PO PRN ×4 (02:23→22:21)
[2021-09-20 06:13] LABS: Basophils # (auto) 0.11 K/uL (0-0.2); Basophils % (auto) 1.5 %; Eosinophils # (auto) 0.29 K/uL (0-0.5); Eosinophils % (auto) 3.9 %; Hematocrit (blood only) 36.4 % (42-52); Hemoglobin 12.2 g/dL (14.0-18.0); Immature Granulocytes # (auto) 0.06 K/uL (0.00-0.02); Immature Granulocytes % (auto) 0.8 %; Lymphocytes # (auto) 1.98 K/uL (1.2-3.4); Lymphocytes % (auto) 26.4 %; Mean Corpuscular Hemoglobin 30.3 pg (25-34); Mean Corpuscular Hgb Conc 33.5 g/dL (32-36); Mean Corpuscular Volume 90.3 fL (80-100); Mean Platelet Volume 8.2 fL (7.4-10.4); Monocytes # (auto) 1.19 K/uL (0.11-0.59); Monocytes % (auto) 15.8 %; Neutrophils # (auto) 3.88 K/uL (1.4-6.5); Neutrophils % (auto) 51.6 %; Platelet Count 595 K/uL (130-400); RDW Coefficient of Variation 14.8 % (11.5-14.5); RDW Standard Deviation 48.6 fL (36.4-46.3); Red Blood Count 4.03 M/uL (4.7-6.1); White Blood Count 7.51 K/uL (4.8-10.8)
[2021-09-20 06:26] LABS: BUN Creatinine Ratio 21.2 (10-20); Calcium 8.2 mg/dl (8.5-10.1); Creatinine Clr Calc Pharmacy 141.9 ml/min; Est GFR (African American) 137.2 ml/min; Est GFR (Non-African American) 118.4 ml/min; Potassium 3.8 mmol/L (3.5-5.1)
[2021-09-20] MEDS: amLODIPine BESYLATE 5 MG TAB PO SCH (07:41)
[2021-09-20] MEDS: FOLIC ACID 1 MG TAB PO SCH (07:41)
[2021-09-20] MEDS: SODIUM CHLORIDE 1 GM TABLET PO SCH ×2 (07:41→21:12)
[2021-09-20] MEDS: THIAMINE HCL 100 MG TAB PO SCH (07:41)
[2021-09-20] MEDS: ACETAMINOPHEN 500 MG TAB PO PRN ×2 (08:51→21:15)
--- NOTE | 2021-09-20 11:55 | Hospitalist Progress Note ---
Date of Service September 20, 2021 Assessment & Plan (1) Fracture of olecranon process, right, closed: Plan: This is a 56yo M with a PMH of chronic alcoholism, hypertension, chronic hyponatremia, history of ambulatory dysfunction, history of esophageal stenosis status post dilation who presents after multiple falls this morning and was found to have R olecranon fracture as well as multiple electrolyte disturbances in setting of ongoing etoh abuse. Two falls this morning. 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 Fracture distracted by approximately 9 mm. Associated right elbow joint effusion ED provider discussed with Dr. Martinez, who recommended splinting and orthopedic evaluation No acute findings in CT head, cervical spine CT or CXR S/P Right open reduction internal fixation olecranon fracture performed by Dr. Martinez on 09/09/21 No post op complication Continue pain control Ortho recommended to continue posterior splint for about 4 weeks. Follow up with ortho in 2 weeks for staple removals and x-ray. Stable from ortho standpoint to discharge Minimal pain in the right elbow with movement (2) Ambulatory dysfunction: Plan: Secondary to prolonged use of alcohol with cerebellar dysfunction awaiting rehab placement (3) Frequent falls: Plan: Mostly related to chronic alcohol abuse CT head showed no acute intracranial abnormality Continue PT/OT - last worked with them on 09/15/21 Waiting for placement to rehab (4) Alcohol use disorder: Plan: Ongoing etoh abuse, denying drink for over a week but etoh level 40 today. Also with component of dementia 2/2 longstanding etoh use History of DTs in setting of withdrawal in the past Pt said last drink was 09/01/21 On Gabapentin and ativan for alcohol withdrawal protocol Continue Thiamine and Folic acid qAM Counseling on smoking cessation (5) Headache: Plan: Endorsing headache for past few days. No photophobia or phonophobia. Improves with ice. No improvement noted after receiving Tylenol or Oxycodone CT head with no acute intracerebral pathology. Cerebral cortical atrophy and remote small vessel disease Encouraged repositioning, sitting in chair and ambulating with assistance. Continue ice PRN (6) Chronic hyponatremia: Plan: Sodium of 124 in setting of chronic etoh use, non-compliance with home salt tabs - baseline Na closer to 130 During previous admissions, nephro has recommended sodium tablets, fluid restriction of 1200 ml Sodium 132 today Starting on salt tablet will liberalize fluid restriction to 2L (7) Hypomagnesemia: Plan: Mg 1.7 today Magnesium replaced Continue monitor mg level (8) Hypokalemia: Plan: K 3.8 today Continue monitor BMP (9) Dysphagia: Plan: H/o esophageal stricture in the past s/p dilation by GI. Need pill crushed, has tolerated soft diet previously without issue. Aspiration precautions Hypertension BP has been fluctuated Patient was on BP med with amlodipine 10 mg but has not been taken it for month Continue amlodipine 5 mg blood p ressure 147/83 DVT Ppx: SCDs for now - h/o recurrent falls Code status: FULL PCP: Manasa Disposition Awaiting placement Admission and Anticipated Discharge Date Admission Date: September 06, 2021 Supervising Physician Co-Signing Physician Notes Attending addendum: The patient was seen and examined in medical floor He remains stable and awaiting to be placed On examination Sitting at the edge of the bed without any symptoms Remains hemodynamically stable Chestclear Heartregular Abdomenbenign His labs, medications reviewed Has significant ambulatory dysfunction secondary to prolonged use of alcohol Medically stable and awaiting placement Hyponatremia seems to be stable Agree with assessment and plan as outlined above by Savita Fleming Subjective Patient was seen and examined in room 384-1. Follow up R ulises thompson, awaiting placement. He complains of forearm pain more than usual today. Wants PT to work with him more. He doesn't understand "why he can't walk and why no one is working with him." He denies f/c/s, chest pain, sob, n/v/d, abd pain. Review of Systems Review of Systems: All systems reviewed & are unremarkable except as noted in HPI & below Physical Exam Physical Exam: Gen: WD/WN, M, NAD, A&O x3, lack of insight HEENT: Normocephalic, atraumatic, conjunctivae moist, sclerae anicteric, mucous membranes moist. Lung: Clear to Auscultation bilaterally, no wheezes/rales/rhonchi Heart: Regular rate, regular rhythm, no murmurs, rubs, or gallops Abdomen: Soft, NT, ND +BS x 4 Extremities: No edema, RUE bandage in place/yojana wrap Skin: Warm, no rash, negative turgor. Results & Data Results & Data ([facility]) Vital Signs (Past 12 Hours) Vital Signs Temp Pulse Resp BP Pulse Ox 09/20/21 07:28 36.8 C 67 18 147/83 H 95 Laboratory Results Short CBC 09/20/21 Range/Units 05:56 WBC 7.51 (4.8-10.8) K/uL Hgb 12.2 L (14.0-18.0) g/dL Hct 36.4 L (42-52) % Plt Count 595 H (130-400) K/uL BMP 09/20/21 05:56 Sodium 132 L Potassium 3.8 Chloride 100 Carbon Dioxide 22 BUN 11 Creatinine 0.52 L Glucose 102 H Calcium 8.2 L Medications Administered Current Inpatient Medications Acetaminophen (Acetaminophen 500 Mg Tab) 1,000 mg PO Q6H PRN PRN Reason: MILD Pain Stop: 10/09/21 18:22 Last Admin: 09/20/21 08:51 Dose: 1,000 mg Documented by: Amlodipine Besylate ([facility] Besylate 5 Mg Tab) [facility] [place]: 10/13/21 08:59 Last Admin: 09/20/21 07:41 Dose: 5 mg Documented by: Folic Acid (Folic Acid 1 Mg Tab) 1 mg PO QAM [facility] Stop: 10/06/21 22:20 Last Admin: 09/20/21 07:41 Dose: 1 mg Documented by: Ondansetron HCl (Ondansetron Inj 2 Mg/Ml 2 Ml Vial) 4 mg IV Q6H PRN PRN Reason: Nausea Stop: 10/06/21 22:20 Oxycodone HCl (Oxycodone Hcl Ir 5 Mg Tab (Immediate Release)) 5 mg PO Q6H PRN PRN Reason: MODERATE-SEVERE Pain Stop: 09/23/21 18:22 Last Admin: 09/20/21 08:51 Dose: 5 mg Documented by: Polyethylene Glycol (Polyethylene (Miralax) 17 Gm Pack) 17 gm PO DAILY PRN PRN Reason: Constipation Stop: 10/06/21 22:20 Sodium Chloride (Sodium Chloride 1 Gm Tablet) 1 gm PO BID [facility] Stop: 10/13/21 20:59 Last Admin: 09/20/21 07:41 Dose: 1 gm Documented by: Thiamine HCl (Thiamine Hcl 100 Mg Tab) 100 mg PO QAM [facility] Stop: 10/06/21 22:20 Last Admin: 09/20/21 07:41 Dose: 100 mg Documented by:
[2021-09-21] MEDS: ACETAMINOPHEN 500 MG TAB PO PRN ×3 (03:07→19:59)
[2021-09-21] MEDS: SODIUM CHLORIDE 1 GM TABLET PO SCH ×2 (07:34→20:00)
[2021-09-21] MEDS: THIAMINE HCL 100 MG TAB PO SCH (07:35)
[2021-09-21] MEDS: amLODIPine BESYLATE 5 MG TAB PO SCH (07:35)
[2021-09-21] MEDS: oxyCODONE HCL IR 5 MG TAB (IMMEDIATE RELEASE) PO PRN ×3 (07:35→23:42)
[2021-09-21] MEDS: FOLIC ACID 1 MG TAB PO SCH (07:35)
[2021-09-21 08:42] LABS: Hematocrit (blood only) 35.9 % (42-52); Hemoglobin 12.4 g/dL (14.0-18.0); Mean Corpuscular Hemoglobin 31.1 pg (25-34); Mean Corpuscular Hgb Conc 34.5 g/dL (32-36); Mean Platelet Volume 8.4 fL (7.4-10.4); Platelet Count 603 K/uL (130-400); RDW Coefficient of Variation 14.9 % (11.5-14.5); RDW Standard Deviation 49.5 fL (36.4-46.3); Red Blood Count 3.99 M/uL (4.7-6.1); White Blood Count 7.92 K/uL (4.8-10.8)
[2021-09-21 09:10] LABS: BUN Creatinine Ratio 19.6 (10-20); Calcium 8.3 mg/dl (8.5-10.1); Creatinine Clr Calc Pharmacy 144.7 ml/min; Est GFR (African American) 138.3 ml/min; Est GFR (Non-African American) 119.3 ml/min; Magnesium 1.8 mg/dl (1.7-2.4); Potassium 3.6 mmol/L (3.5-5.1)
--- NOTE | 2021-09-21 12:47 | Hospitalist Progress Note ---
Date of Service September 21, 2021 Assessment & Plan (1) Fracture of olecranon process, right, closed: Plan: This is a 56yo M with a PMH of chronic alcoholism, hypertension, chronic hyponatremia, history of ambulatory dysfunction, history of esophageal stenosis status post dilation who presents after multiple falls this morning and was found to have R olecranon fracture as well as multiple electrolyte disturbances in setting of ongoing etoh abuse. Two falls this morning. 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 Fracture distracted by approximately 9 mm. Associated right elbow joint effusion ED provider discussed with Dr. Martinez, who recommended splinting and orthopedic evaluation No acute findings in CT head, cervical spine CT or CXR S/P Right open reduction internal fixation olecranon fracture performed by Dr. Martinez on 09/09/21 No post op complication Continue pain control Ortho recommended to continue posterior splint for about 4 weeks. Follow up with ortho in 2 weeks for staple removals and x-ray. Stable from ortho standpoint to discharge Minimal pain in the right elbow with movement (2) Ambulatory dysfunction: Plan: Secondary to prolonged use of alcohol with cerebellar dysfunction awaiting rehab placement (3) Frequent falls: Plan: Mostly related to chronic alcohol abuse CT head showed no acute intracranial abnormality Continue PT/OT - last worked with them on 09/17/21 Waiting for placement to rehab encourage to walk with nursing (4) Alcohol use disorder: Plan: Ongoing etoh abuse, denying drink for over a week but etoh level 40 today. Also with component of dementia 2/2 longstanding etoh use History of DTs in setting of withdrawal in the past Pt said last drink was 09/01/21 On Gabapentin and ativan for alcohol withdrawal protocol Continue Thiamine and Folic acid qAM Counseling on smoking cessation (5) Headache: Plan: Endorsing headache for past few days. No photophobia or phonophobia. Improves with ice. No improvement noted after receiving Tylenol or Oxycodone CT head with no acute intracerebral pathology. Cerebral cortical atrophy and remote small vessel disease Encouraged repositioning, sitting in chair and ambulating with assistance. Continue ice PRN (6) Chronic hyponatremia: Plan: Sodium of 124 in setting of chronic etoh use, non-compliance with home salt tabs - baseline Na closer to 130 During previous admissions, nephro has recommended sodium tablets, fluid restriction of 1200 ml Sodium 133 today Starting on salt tablet will liberalize fluid restriction to 2L (7) Hypomagnesemia: Plan: Mg 1.8 today Magnesium replaced Continue monitor mg level (8) Hypokalemia: Plan: K 3.8 today Continue monitor BMP (9) Dysphagia: Plan: H/o esophageal stricture in the past s/p dilation by GI. Need pill crushed, has tolerated soft diet previously without issue. Aspiration precautions Hypertension BP has been fluctuated Patient was on BP med with amlodipine 10 mg but has not been taken it for month Continue amlodipine 5 mg blood pressure 131/80 DVT Ppx: SCDs for now - h/o recurrent falls Code status: FULL PCP: Manasa Disposition Awaiting placement Pt was seen and examined in collaboration with Dr. Fleming, please see addendum Admission and Anticipated Discharge Date Admission Date: September 06, 2021 Supervising Physician Co-Signing Physician Notes Attending addendum: The patient was seen and examined in medical floor He has been feeling much better and is happy that he is now getting 2000 mL of fluid daily He wants to drink more Denies any other significant symptoms On examination Lying in bed comfortable Hemodynamically stable Chest-clear to auscultate bilaterally Heart-S1-S2, regular Abdomen-benign Extremities-negative His labs and medications reviewed He has significant ambulatory dysfunction due to prolonged use of alcohol He will need to continue with PT and OT to improve his condition Awaiting placement Agree with assessment and plan as outlined above by Savita Fleming Subjective Patient was seen and examined in room 384-1. Follow up R ulises thompson, awaiting placement. He wishes to be able to walk better. Denies f/c/s, chest pain, sob, n/v/d. Continues to have forearm pain, but less than yestserday. Wishes to be accepted to [place] care. Review of Systems Review of Systems: All systems reviewed & are unremarkable except as noted in HPI & below Physical Exam Physical Exam: Gen: WD/WN, M, NAD, A&O x3, lack of insight HEENT: Normocephalic, atraumatic, conjunctivae moist, sclerae anicteric, mucous membranes moist. Lung: Clear to Auscultation bilaterally, no wheezes/rales/rhonchi Heart: Regular rate, regular rhythm, no murmurs, rubs, or gallops Abdomen: Soft, NT, ND +BS x 4 Extremities: No edema, RUE bandage in place/yojana wrap Skin: Warm, no rash, negative turgor. Results & Data Results & Data ([facility]) Vital Signs (Past 12 Hours) Vital Signs Temp Pulse Resp BP Pulse Ox 09/21/21 07:19 36.7 C 73 18 131/80 95 Laboratory Results Short CBC 09/21/21 Range/Units 08:12 WBC 7.92 (4.8-10.8) K/uL Hgb 12.4 L (14.0-18.0) g/dL Hct 35.9 L (42-52) % Plt Count 603 H (130-400) K/uL [facility] 09/21/21 08:12 Sodium 133 L Potassium 3.6 Chloride 100 Carbon Dioxide 25 BUN 10 Creatinine 0.51 L Glucose 89 Calcium 8.3 L Diagnostic Findings Short CBC 09/21/21 Range/Units 08:12 WBC 7.92 (4.8-10.8) K/uL Hgb 12.4 L (14.0-18.0) g/dL Hct 35.9 L (42-52) % Plt Count 603 H (130-400) K/uL [facility] 09/21/21 08:12 Sodium 133 L Potassium 3.6 Chloride 100 Carbon Dioxide 25 BUN 10 Creatinine 0.51 L Glucose 89 Calcium 8.3 L Medications Administered Current Inpatient Medications Acetaminophen (Acetaminophen 500 Mg Tab) 1,000 mg PO Q6H PRN PRN Reason: MILD Pain Stop: 10/09/21 18:22 Last Admin: 09/21/21 09:14 Dose: 1,000 mg Documented by: Amlodipine Besylate (Amlodipine Besylate 5 Mg Tab) 5 mg PO [facility] Stop: 10/13/21 08:59 Last Admin: 09/21/21 07:35 Dose: 5 mg Documented by: Folic Acid (Folic Acid 1 Mg Tab) 1 mg PO [facility] Stop: 10/06/21 22:20 Last Admin: 09/21/21 07:35 Dose: 1 mg Documented by: Ondansetron HCl (Ondansetron Inj 2 Mg/Ml 2 Ml Vial) 4 mg IV Q6H PRN PRN Reason: Nausea Stop: 10/06/21 22:20 Oxycodone HCl (Oxycodone Hcl Ir 5 Mg Tab (Immediate Release)) 5 mg PO Q6H PRN PRN Reason: MODERATE-SEVERE Pain Stop: 09/23/21 18:22 Last Admin: 09/21/21 07:35 Dose: 5 mg Documented by: Polyethylene Glycol (Polyethylene (Miralax) 17 Gm Pack) 17 gm PO DAILY PRN PRN Reason: Constipation Stop: 10/06/21 22:20 Sodium Chloride (Sodium Chloride 1 Gm Tablet) 1 gm PO BID [facility] Stop: 10/13/21 20:59 Last Admin: 09/21/21 07:34 Dose: 1 gm Documented by: Thiamine HCl (Thiamine Hcl 100 Mg Tab) 100 mg PO QAM [facility] Stop: 10/06/21 22:20 Last Admin: 09/21/21 07:35 Dose: 100 mg Documented by:
[2021-09-21] MEDS: hydrOXYzine HCl 25 MG TAB PO PRN (14:47)
[2021-09-22] MEDS: ACETAMINOPHEN 500 MG TAB PO PRN ×2 (08:22→19:53)
[2021-09-22] MEDS: amLODIPine BESYLATE 5 MG TAB PO SCH (08:23)
[2021-09-22] MEDS: FOLIC ACID 1 MG TAB PO SCH (08:23)
[2021-09-22] MEDS: SODIUM CHLORIDE 1 GM TABLET PO SCH ×2 (08:23→19:52)
[2021-09-22] MEDS: oxyCODONE HCL IR 5 MG TAB (IMMEDIATE RELEASE) PO PRN ×3 (08:23→22:17)
[2021-09-22] MEDS: THIAMINE HCL 100 MG TAB PO SCH (08:24)
--- NOTE | 2021-09-22 11:58 | Hospitalist Progress Note ---
Date of Service September 22, 2021 Assessment & Plan (1) Fracture of olecranon process, right, closed: Plan: This is a 56yo M with a PMH of chronic alcoholism, hypertension, chronic hyponatremia, history of ambulatory dysfunction, history of esophageal stenosis status post dilation who presents after multiple falls this morning and was found to have R olecranon fracture as well as multiple electrolyte disturbances in setting of ongoing etoh abuse. Two falls morning of admission. 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 Fracture distracted by approximately 9 mm. Associated right elbow joint effusion ED provider discussed with Dr. Martinez, who recommended splinting and orthopedic evaluation No acute findings in CT head, cervical spine CT or CXR S/P Right open reduction internal fixation olecranon fracture performed by Dr. Martinez on 09/09/21 No post op complication Continue pain control Ortho recommended to continue posterior splint for about 4 weeks. Follow up with ortho in 2 weeks for staple removals and x-ray. Stable from ortho standpoint to discharge Minimal pain in the right elbow with movement (2) Ambulatory dysfunction: Plan: Secondary to prolonged use of alcohol with cerebellar dysfunction awaiting rehab placement (3) Frequent falls: Plan: Mostly related to chronic alcohol abuse CT head showed no acute intracranial abnormality Continue PT/OT - last worked with them on 09/17/21 Waiting for placement to rehab encourage to walk with nursing (4) Alcohol use disorder: Plan: Ongoing etoh abuse, denying drink for over a week but etoh level 40 today. Also with component of dementia 2/2 longstanding etoh use History of DTs in setting of withdrawal in the past Pt said last drink was 09/01/21 On Gabapentin and ativan for alcohol withdrawal protocol Continue Thiamine and Folic acid qAM Counseling on smoking cessation (5) Headache: Plan: Endorsing headache for past few days. No photophobia or phonophobia. Improves with ice. No improvement noted after receiving Tylenol or Oxycodone CT head with no acute intracerebral pathology. Cerebral cortical atrophy and remote small vessel disease Encouraged repositioning, sitting in chair and ambulating with assistance. Continue ice PRN (6) Chronic hyponatremia: Plan: Sodium of 124 in setting of chronic etoh use, non-compliance with home salt tabs - baseline Na closer to 130 During previous admissions, nephro has recommended sodium tablets, fluid restriction of 1200 ml Sodium 133 today Liberalize FR 200ml (7) Hypomagnesemia: Plan: Magnesium replaced Continue monitor mg level (8) Hypokalemia: Plan: replaced Continue monitor BMP (9) Dysphagia: Plan: H/o esophageal stricture in the past s/p dilation by GI. Need pill crushed, has tolerated soft diet previously without issue. Aspiration precautions Hypertension BP has been fluctuated Patient was on BP med with amlodipine 10 mg but has not been taken it for month Continue amlodipine 5 mg blood pressure 150/84 Thrombocytosis ? reactive vs trauma from olecranon fx previously had been normal, now 603, recently elevated since 09/18, check cbc w/ diff in am, iron panel DVT Ppx: SCDs for now - h/o recurrent falls , he is also up and ambulating with staff Code status: FULL PCP: Man[facility] Disposition Awaiting placement Pt was seen and examined in collaboration with Dr. Paul, please see addendum Admission and Anticipated Discharge Date Admission Date: September 06, 2021 Supervising Physician Co-Signing Physician Notes 56-year-old gentleman with PMH of chronic alcoholism, HTN, chronic hyponatremia, ambulatory dysfunction, esophageal stenosis status post dilatation is being managed for fracture of olecranon process [right] status post repair under sling and ambulatory dysfunction and frequent falls. Patient advised/counseled against drinking alcohol in future. Patient seems agreeable. His sodium level is slowly improving towards his baseline. Patient is stable from Ortho standpoint to discharge. Patient is awaiting placement. Upon examination, patient was comfortable, on room air, negative for lower extremity edema, heart lungs and abdomen examination WNL. I have seen and examined the patient and have discussed the case with the provider above. I agree with the assessment and plan as stated. Subjective Patient was seen and examined in room 384-1. Follow up R olecranon fx, awaiting placement. He wishes to be able to drink more fluid. His right forearm was hurting this morning, but he slept well last evening. Currently he is working with physical therapy. Per physical therapist yesterday he ambulated around the unit twice, but was noncompliant with his cane. He denies fever, chills, sweats, lightheadedness, dizziness, chest pain, shortness breath, nausea, vomiting, abdominal pain. Review of Systems Review of Systems: All systems reviewed & are unremarkable except as noted in HPI & below Physical Exam Physical Exam: Gen: WD/WN, M, NAD, A&O x3, lack of insight HEENT: Normocephalic, atraumatic, conjunctivae moist, sclerae anicteric, mucous membranes moist. Lung: Clear to Auscultation bilaterally, no wheezes/rales/rhonchi Heart: Regular rate, regular rhythm, no murmurs, rubs, or gallops Abdomen: Soft, NT, ND +BS x 4 Extremities: No edema, RUE bandage in place/yojana wrap Skin: Warm, no rash, negative turgor. Results & Data Results & Data ([facility]) Vital Signs (Past 12 Hours) Vital Signs Temp Pulse Resp BP Pulse Ox 09/22/21 07:20 37.2 C 81 18 150/84 H 98 Medications Administered Current Inpatient Medications Acetaminophen (Acetaminophen 500 Mg Tab) 1,000 mg PO Q6H PRN PRN Reason: MILD Pain Stop: 10/09/21 18:22 Last Admin: 09/22/21 08:22 Dose: 1,000 mg Documented by: Amlodipine Besylate (Amlodipine Besylate 5 Mg Tab) [facility] Stop: 10/13/21 08:59 Last Admin: 09/22/21 08:23 Dose: 5 mg Documented by: Folic Acid (Folic Acid 1 Mg Tab) 1 mg PO QAM [facility] Stop: 10/06/21 22:20 Last Admin: 09/22/21 08:23 Dose: 1 mg Documented by: Hydroxyzine HCl (Hydroxyzine Hcl 25 Mg Tab) 25 mg PO BID PRN PRN Reason: itching Stop: 10/21/21 14:37 Last Admin: 09/21/21 14:47 Dose: 25 mg Documented by: Ondansetron HCl (Ondansetron Inj 2 Mg/Ml 2 Ml Vial) 4 mg IV Q6H PRN PRN Reason: Nausea Stop: 10/06/21 22:20 Oxycodone HCl (Oxycodone Hcl Ir 5 Mg Tab (Immediate Release)) 5 mg PO Q6H PRN PRN Reason: MODERATE-SEVERE Pain Stop: 09/23/21 18:22 Last Admin: 09/22/21 08:23 Dose: 5 mg Documented by: Polyethylene Glycol (Polyethylene (Miralax) 17 Gm Pack) 17 gm PO DAILY PRN PRN Reason: Constipation Stop: 10/06/21 22:20 Sodium Chloride (Sodium Chloride 1 Gm Tablet) 1 gm PO BID [facility] Stop: 10/13/21 20:59 Last Admin: 09/22/21 08:23 Dose: 1 gm Documented by: Thiamine HCl (Thiamine Hcl 100 Mg Tab) 100 mg PO QAM [facility] Stop: 10/06/21 22:20 Last Admin: 09/22/21 08:24 Dose: 100 mg Documented by:
[2021-09-23] MEDS: ACETAMINOPHEN 500 MG TAB PO PRN ×3 (01:53→19:55)
[2021-09-23] MEDS: oxyCODONE HCL IR 5 MG TAB (IMMEDIATE RELEASE) PO PRN ×3 (04:22→21:05)
[2021-09-23] MEDS: amLODIPine BESYLATE 5 MG TAB PO SCH (08:01)
[2021-09-23] MEDS: THIAMINE HCL 100 MG TAB PO SCH (08:01)
[2021-09-23] MEDS: SODIUM CHLORIDE 1 GM TABLET PO SCH ×2 (08:02→21:03)
[2021-09-23] MEDS: FOLIC ACID 1 MG TAB PO SCH (08:02)
[2021-09-23 08:54] LABS: Hematocrit (blood only) 36.4 % (42-52); Hemoglobin 12.6 g/dL (14.0-18.0); Mean Corpuscular Hemoglobin 31.1 pg (25-34); Mean Corpuscular Hgb Conc 34.6 g/dL (32-36); Mean Corpuscular Volume 89.9 fL (80-100); Mean Platelet Volume 8.2 fL (7.4-10.4); Platelet Count 569 K/uL (130-400); RDW Coefficient of Variation 14.7 % (11.5-14.5); RDW Standard Deviation 48.3 fL (36.4-46.3); Red Blood Count 4.05 M/uL (4.7-6.1)
[2021-09-23 09:18] LABS: Magnesium 1.8 mg/dl (1.7-2.4)
[2021-09-23 10:11] LABS: Folate (Folic Acid) > 22.30 ng/ml (>5.38)
[2021-09-23 10:14] LABS: Vitamin D, 25 Hydrox 13.2 ng/ml (30-100)
--- NOTE | 2021-09-23 14:23 | Orthopedic Progress Note ---
Date of Service September 23, 2021 Assessment & Plan (1) Fracture of olecranon process, right, closed: We removed the posterior splint. He can be in an arm sling. He can do a little range of motion with his elbow but I do not want to much. I do want any lifting with the right arm. The geovanna can be removed by the nursing staff. He is orthopedically stable for discharge when medically ready. Full orthopedic discharge instructions were placed in the discharge summary. Thuy Walker was seen and examined at bedside today. Overall is doing fairly well. Is not in too much pain in the right elbow. He has no new complaints with his e lbow. Review of Systems All systems reviewed & are unremarkable except as noted in HPI & below. Physical Exam The dressing was removed. The splint was removed. The incision looks good. He is neurovascular intact. I did not do range of motion with his elbow. Results & Data Results & Data Laboratory Results . Diagnostic Findings . PG Care Time/CCT Total # of Minutes Spent Total Time Spent with Patient: Total time spent is greater than 50% in coordination of care (as documented) at patient's floor/unit and/or counseling patient: Coding Level of Care Code 02291 Post Operative Follow-Up Diagnoses Fracture of olecranon process, right, closed S52.021A
--- NOTE | 2021-09-23 16:18 | Hospitalist Progress Note ---
Date of Service September 23, 2021 Assessment & Plan (1) Fracture of olecranon process, right, closed: Plan: This is a 56yo M with a PMH of chronic alcoholism, hypertension, chronic hyponatremia, history of ambulatory dysfunction, history of esophageal stenosis status post dilation who presented after multiple falls and was found to have R olecranon fracture as well as multiple electrolyte disturbances in setting of ongoing etoh abuse. Two falls morning of admission. 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 Fracture distracted by approximately 9 mm. Associated right elbow joint effusion S/P Right open reduction internal fixation olecranon fracture performed by Dr. Martinez on 09/09/21 No acute findings in admitting CT head, cervical spine CT or CXR Continue pain control Posterior splint removed by Ortho today, continue nonweightbearing RUE and sling Annemarie to be removed by nursing staff (2) Ambulatory dysfunction: Plan: Secondary to prolonged use of alcohol with cerebellar dysfunction awaiting rehab placement (3) Frequent falls: Plan: Mostly related to chronic alcohol abuse CT head showed no acute intracranial abnormality Continue PT/OT Waiting for placement to rehab (4) Alcohol use disorder: Plan: Ongoing etoh abuse, denying drink for over a week but etoh level 40 on admission. History of DTs in setting of withdrawal in the past Completed gabapentin protocol Continue Thiamine and Folic acid qAM (5) Headache: Plan: Endorsing headache for past few days. No photophobia or phonophobia. Improves with ice. Patient reports improvement with Tylenol and oxycodone today. 09/16/2021 CT head with no acute intracerebral pathology. Cerebral cortical atrophy and remote small vessel disease Encouraged repositioning, sitting in chair and ambulating with assistance. Continue ice PRN (6) Chronic hyponatremia: Plan: Na+ 124 on admission in setting of chronic etoh use, non-compliance with home salt tabs - baseline Na closer to 130 During previous admissions, nephro has recommended sodium tablets, fluid restriction of 1200 ml Na+ 133 on 09/21/2021 2000 mL FR (7) Hypomagnesemia: Plan: Replaced, resolved (8) Hypokalemia: Plan: Replaced, resolved (9) Dysphagia: Plan: H/o esophageal stricture in the past s/p dilation by GI. Need pill crushed, has tolerated soft diet previously without issue. Aspiration precautions Hypertension BP generally well controlled Patient was on BP med with amlodipine 10 mg but has not been taken it for month Amlodipine 5 mg restarted Thrombocytosis Platelets 603K 09/21/21 --> 569K today ? reactive vs trauma from olecranon fx Peripheral smear completed -clear reactive Follow CBC DVT Ppx: SCDs for now - h/o recurrent falls , he is also up and ambulating with staff Dispo -medically stable for discharge, awaiting placement Admission and Anticipated Discharge Date Admission Date: September 06, 2021 Supervising Physician Co-Signing Physician Notes There is another progress note addended on the same day. Subjective Patient was seen and examined. Follow up R olecranon fx, awaiting placement. Reports a headache today. Taking Tylenol and oxycodone with relief. Right arm pain controlled. No chest pain or shortness of breath. Denies abdominal pain or nausea. Review of Systems Review of Systems: ROS per HPI, all other systems reviewed and negative Physical Exam Constitutional: no acute distress Sitting up in the chair Respiratory: normal respiratory effort, lungs clear to auscultation Cardiovascular: Rate/Rhythm: regular rate and regular rhythm Vessels: normal peripheral pulses Extremities: no edema Gastrointestinal (Abdomen): Percussion/Palpation: abdomen soft; abdomen nontender Musculoskeletal: Andrew wrap and sling in place to RUE Skin: no rashes, warm and dry Neurologic: no focal motor deficits Psychiatric: A+Ox3, euthymic affect Results & Data Results & Data ([facility]) Vital Signs (Past 12 Hours) Vital Signs Temp Pulse Resp BP Pulse Ox 09/23/21 07:37 37 C 61 16 144/87 H 97 Laboratory Results Short CBC 09/23/21 Range/Units 08:36 WBC 7.90 (4.8-10.8) K/uL Hgb 12.6 L (14.0-18.0) g/dL Hct 36.4 L (42-52) % Plt Count 569 H (130-400) K/uL
--- NOTE | 2021-09-23 16:25 | Hospitalist Progress Note ---
Date of Service September 23, 2021 Assessment & Plan (1) Fracture of olecranon process, right, closed: Plan: This is a 56yo M with a PMH of chronic alcoholism, hypertension, chronic hyponatremia, history of ambulatory dysfunction, history of esophageal stenosis status post dilation who presented after multiple falls and was found to have R olecranon fracture as well as multiple electrolyte disturbances in setting of ongoing etoh abuse. Two falls morning of admission. 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 Fracture distracted by approximately 9 mm. Associated right elbow joint effusion S/P Right open reduction internal fixation olecranon fracture performed by Dr. Martinez on 09/09/21 No acute findings in admitting CT head, cervical spine CT or CXR Continue pain control Posterior splint removed by Ortho today, continue nonweightbearing RUE and sling Annemarie to be removed by nursing staff (2) Ambulatory dysfunction: Plan: Secondary to prolonged use of alcohol with cerebellar dysfunction awaiting rehab placement (3) Frequent falls: Plan: Mostly related to chronic alcohol abuse CT head showed no acute intracranial abnormality Continue PT/OT Waiting for placement to rehab (4) Alcohol use disorder: Plan: Ongoing etoh abuse, denying drink for over a week but etoh level 40 on admission. History of DTs in setting of withdrawal in the past Completed gabapentin protocol Continue Thiamine and Folic acid qAM (5) Headache: Plan: Endorsing headache for past few days. No photophobia or phonophobia. Improves with ice. Patient reports improvement with Tylenol and oxycodone today. 09/16/2021 CT head with no acute intracerebral pathology. Cerebral cortical atrophy and remote small vessel disease Encouraged repositioning, sitting in chair and ambulating with assistance. Continue ice PRN (6) Chronic hyponatremia: Plan: Na+ 124 on admission in setting of chronic etoh use, non-compliance with home salt tabs - baseline Na closer to 130 During previous admissions, nephro has recommended sodium tablets, fluid restriction of 1200 ml Na+ 133 on 09/21/2021 2000 mL FR (7) Hypomagnesemia: Plan: Replaced, resolved (8) Hypokalemia: Plan: Replaced, resolved (9) Dysphagia: Plan: H/o esophageal stricture in the past s/p dilation by GI. Need pill crushed, has tolerated soft diet previously without issue. Aspiration precautions Hypertension BP generally well controlled Patient was on BP med with amlodipine 10 mg but has not been taken it for month Amlodipine 5 mg restarted Thrombocytosis Platelets 603K 09/21/21 --> 569K today ? reactive vs trauma from olecranon fx Peripheral smear completed -clear reactive Follow CBC DVT Ppx: SCDs for now - h/o recurrent falls , he is also up and ambulating with staff Dispo -medically stable for discharge, awaiting placement Admission and Anticipated Discharge Date Admission Date: September 06, 2021 Supervising Physician Co-Signing Physician Notes 56-year-old gentleman with PMH of chronic alcoholism, HTN, chronic hyponatremia, ambulatory dysfunction, esophageal stenosis status post dilatation is being managed for fracture of olecranon process [right] status post repair under sling and ambulatory dysfunction and frequent falls. Patient advised/counseled against drinking alcohol in future. Patient seems agreeable. His sodium level is at his baseline. Patient is stable from Ortho standpoint to discharge. Patient is awaiting placement. Upon examination, patient was comfortable, on room air, negative for lower extremity edema, heart lungs and abdomen examination WNL. RUE in Sling. I have seen and examined the patient and have discussed the case with the provider above. I agree with the assessment and plan as stated. Subjective Patient was seen and examined. Follow up R olecranon fx, awaiting placement. Reports a headache today. Taking Tylenol and oxycodone with relief. Right arm pain controlled. No chest pain or shortness of breath. Denies abdominal pain or nausea. Review of Systems Review of Systems: ROS per HPI, all other systems reviewed and negative Physical Exam Constitutional: no acute distress Respiratory: normal respiratory effort, lungs clear to auscultation Cardiovascular: Rate/Rhythm: regular rate and regular rhythm Vessels: normal peripheral pulses Extremities: no edema Gastrointestinal (Abdomen): Percussion/Palpation: abdomen soft; abdomen nontender Skin: no rashes, warm and dry Neurologic: no focal motor deficits Psychiatric: A+Ox3, euthymic affect Results & Data Results & Data ([facility]) Vital Signs (Past 12 Hours) Vital Signs Temp Pulse Resp BP Pulse Ox 09/23/21 07:37 37 C 61 16 144/87 H 97 Laboratory Results Short CBC 09/23/21 Range/Units 08:36 WBC 7.90 (4.8-10.8) K/uL Hgb 12.6 L (14.0-18.0) g/dL Hct 36.4 L (42-52) % Plt Count 569 H (130-400) K/uL
[2021-09-24] MEDS: ACETAMINOPHEN 500 MG TAB PO PRN ×3 (03:09→18:57)
[2021-09-24] MEDS: oxyCODONE HCL IR 5 MG TAB (IMMEDIATE RELEASE) PO PRN ×2 (06:03→21:11)
[2021-09-24 06:22] LABS: Hematocrit (blood only) 37.7 % (42-52); Hemoglobin 12.9 g/dL (14.0-18.0); Mean Corpuscular Hemoglobin 30.9 pg (25-34); Mean Corpuscular Hgb Conc 34.2 g/dL (32-36); Mean Corpuscular Volume 90.4 fL (80-100); Mean Platelet Volume 8.3 fL (7.4-10.4); Platelet Count 567 K/uL (130-400); RDW Coefficient of Variation 14.7 % (11.5-14.5); RDW Standard Deviation 48.9 fL (36.4-46.3); Red Blood Count 4.17 M/uL (4.7-6.1); White Blood Count 7.36 K/uL (4.8-10.8)
[2021-09-24] MEDS: THIAMINE HCL 100 MG TAB PO SCH (08:02)
[2021-09-24] MEDS: FOLIC ACID 1 MG TAB PO SCH (08:02)
[2021-09-24] MEDS: SODIUM CHLORIDE 1 GM TABLET PO SCH ×2 (08:03→19:58)
[2021-09-24] MEDS: amLODIPine BESYLATE 5 MG TAB PO SCH (08:03)
--- NOTE | 2021-09-24 14:23 | Hospitalist Progress Note ---
Date of Service September 24, 2021 Assessment & Plan (1) Fracture of olecranon process, right, closed: Plan: This is a 56yo M with a PMH of chronic alcoholism, hypertension, chronic hyponatremia, history of ambulatory dysfunction, history of esophageal stenosis status post dilation who presented after multiple falls and was found to have R olecranon fracture as well as multiple electrolyte disturbances in setting of ongoing etoh abuse. Two falls morning of admission. 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 Fracture distracted by approximately 9 mm. Associated right elbow joint effusion S/P Right open reduction internal fixation olecranon fracture performed by Dr. Martinez on 09/09/21 No acute findings in admitting CT head, cervical spine CT or CXR Continue pain control Posterior splint removed by Ortho on 09/23, continue nonweightbearing RUE and sling Holcomb to be removed by nursing staff (2) Ambulatory dysfunction: Plan: Secondary to prolonged use of alcohol with cerebellar dysfunction awaiting rehab placement (3) Frequent falls: Plan: Mostly related to chronic alcohol abuse CT head showed no acute intracranial abnormality Continue PT/OT Waiting for placement to rehab (4) Alcohol use disorder: Plan: Ongoing etoh abuse, denying drink for over a week but etoh level 40 on admission. History of DTs in setting of withdrawal in the past Completed gabapentin protocol Continue Thiamine and Folic acid qAM (5) Headache: Plan: Endorsing headache for past few days. No photophobia or phonophobia. Improves with ice. Patient reports improvement with Tylenol and oxycodone. 09/16/2021 CT head with no acute intracerebral pathology. Cerebral cortical atrophy and remote small vessel disease Encouraged repositioning, sitting in chair and ambulating with assistance. Continue ice PRN (6) Chronic hyponatremia: Plan: Na+ 124 on admission in setting of chronic etoh use, non-compliance with home salt tabs - baseline Na closer to 130 During previous admissions, nephro has recommended sodium tablets, fluid restriction of 1200 ml Na+ 133 on 09/21/2021 2000 mL FR (7) Hypomagnesemia: Plan: Replaced, resolved (8) Hypokalemia: Plan: Replaced, resolved (9) Dysphagia: Plan: H/o esophageal stricture in the past s/p dilation by GI. Need pill crushed, has tolerated soft diet previously without issue. Aspiration precautions Hypertension BP generally well controlled Patient was on BP med with amlodipine 10 mg but has not been taken it for month Amlodipine 5 mg restarted Thrombocytosis Platelets 603K 09/21/21 --> 569K --> 567K ? reactive vs trauma from olecranon fx Peripheral smear completed -clear reactive Follow CBC DVT Ppx: SCDs for now - h/o recurrent falls , he is also up and ambulating with staff Dispo -medically stable for discharge, awaiting placement Admission and Anticipated Discharge Date Admission Date: September 06, 2021 Supervising Physician Co-Signing Physician Notes 56-year-old gentleman with PMH of chronic alcoholism, HTN, chronic hyponatremia, ambulatory dysfunction, esophageal stenosis status post dilatation is being managed for fracture of olecranon process [right] status post repair under sling and ambulatory dysfunction and frequent falls. Patient advised/counseled against drinking alcohol in future. Patient seems agreeable. His sodium level is at his baseline. Patient is stable from Ortho standpoint to discharge. Patient is awaiting placement. Upon examination, patient was comfortable, on room air, negative for lower extremity edema, heart lungs and abdomen examination WNL. RUE in Sling. I have seen and examined the patient and have discussed the case with the provider above. I agree with the assessment and plan as stated. Subjective Patient was seen and examined. Follow up R olecranon fx, awaiting placement. Right elbow pain and headache controlled with oxycodone and Tylenol. Denies chest pain or shortness of breath. No abdominal pain or nausea. Review of Systems Review of Systems: ROS per HPI, all other systems reviewed and negative Physical Exam Constitutional: WD/WN, vitals as above Respiratory: normal respiratory effort, lungs clear to auscultation Cardiovascular: Rate/Rhythm: regular rate and regular rhythm Vessels: normal peripheral pulses Extremities: no edema Gastrointestinal (Abdomen): Percussion/Palpation: abdomen soft; abdomen nontender Musculoskeletal: RUE in sling Skin: no rashes, warm and dry Neurologic: no focal motor deficits Psychiatric: A+Ox3, euthymic affect Results & Data Results & Data ([facility]) Vital Signs (Past 12 Hours) Vital Signs Temp Pulse Resp BP Pulse Ox 09/24/21 07:58 63 133/84 09/24/21 07:21 36.4 C L 61 18 152/87 H 96 Laboratory Results Short CBC 09/24/21 Range/Units 06:03 WBC 7.36 (4.8-10.8) K/uL Hgb 12.9 L (14.0-18.0) g/dL Hct 37.7 L (42-52) % Plt Count 567 H (130-400) K/uL
[2021-09-25] MEDS: ACETAMINOPHEN 500 MG TAB PO PRN ×3 (01:11→20:45)
[2021-09-25] MEDS: oxyCODONE HCL IR 5 MG TAB (IMMEDIATE RELEASE) PO PRN ×2 (05:42→16:50)
[2021-09-25] MEDS: amLODIPine BESYLATE 5 MG TAB PO SCH (08:15)
[2021-09-25] MEDS: SODIUM CHLORIDE 1 GM TABLET PO SCH ×2 (08:15→20:43)
[2021-09-25] MEDS: THIAMINE HCL 100 MG TAB PO SCH (08:15)
[2021-09-25] MEDS: FOLIC ACID 1 MG TAB PO SCH (08:15)
[2021-09-25] MEDS: CHOLECALCIFEROL 5,000 UNITS 125 MCG TAB PO SCH (10:25)
[2021-09-25] MEDS: hydrOXYzine HCl 25 MG TAB PO PRN (10:25)
--- NOTE | 2021-09-25 19:38 | Hospitalist Progress Note ---
Date of Service September 25, 2021 Assessment & Plan (1) Fracture of olecranon process, right, closed: Plan: This is a 56yo M with a PMH of chronic alcoholism, hypertension, chronic hyponatremia, history of ambulatory dysfunction, history of esophageal stenosis status post dilation who presented after multiple falls and was found to have R olecranon fracture as well as multiple electrolyte disturbances in setting of ongoing etoh abuse. Two falls morning of admission. 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 Fracture distracted by approximately 9 mm. Associated right elbow joint effusion S/P Right open reduction internal fixation olecranon fracture performed by Dr. Martinez on 09/09/21 No acute findings in admitting CT head, cervical spine CT or CXR Continue pain control Posterior splint removed by Ortho on 09/23, continue nonweightbearing RUE and sling (2) Ambulatory dysfunction: Plan: Secondary to prolonged use of alcohol with cerebellar dysfunction awaiting rehab placement (3) Frequent falls: Plan: Mostly related to chronic alcohol abuse CT head showed no acute intracranial abnormality Continue PT/OT Waiting for placement to rehab (4) Alcohol use disorder: Plan: Ongoing etoh abuse, denying drink for over a week but etoh level 40 on admission. History of DTs in setting of withdrawal in the past Completed gabapentin protocol Continue Thiamine and Folic acid qAM (5) Headache: Plan: Endorsing headache for past few days. No photophobia or phonophobia. Improves with ice. Patient reports improvement with Tylenol and oxycodone. 09/16/2021 CT head with no acute intracerebral pathology. Cerebral cortical atrophy and remote small vessel disease Encouraged repositioning, sitting in chair and ambulating with assistance. Continue ice PRN (6) Chronic hyponatremia: Plan: Na+ 124 on admission in setting of chronic etoh use, non-compliance with home salt tabs - baseline Na closer to 130 During previous admissions, nephro has recommended sodium tablets, fluid restriction of 1200 ml Na+ 133 on 09/21/2021 2000 mL FR (7) Hypomagnesemia: Plan: Replaced, resolved (8) Hypokalemia: Plan: Replaced, resolved (9) Dysphagia: Plan: H/o esophageal stricture in the past s/p dilation by GI. Need pill crushed, has tolerated soft diet previously without issue. Aspiration precautions Hypertension BP generally well controlled Patient was on BP med with amlodipine 10 mg but has not been taken it for month Amlodipine 5 mg restarted Thrombocytosis Platelets 603K 09/21/21 --> 569K --> 567K ? reactive vs trauma from olecranon fx Peripheral smear completed -clear reactive Follow CBC DVT Ppx: SCDs for now - h/o recurrent falls , he is also up and ambulating with staff Dispo -medically stable for discharge, awaiting placement Admission and Anticipated Discharge Date Admission Date: September 06, 2021 Subjective Patient was seen and examined as a follow up of R olecranon fx, awaiting placement. Right elbow pain and headache controlled with oxycodone and Tylenol. Denies chest pain or shortness of breath. No abdominal pain or nausea. No interval changes. Physical Exam Physical Exam: GENERAL: Alert and oriented x3. NAD, on RA. HEENT: No pallor, no icterus. Pupils equal, round and reactive to light. Oral mucosa moist. NECK: No JVD, no neck masses. HEART: S1 and S2 heard. Regular rate and rhythm. No murmur, no gallop. RESPIRATORY SYSTEM: Normal AP diameter. No accessory muscle use. No wheezing, no crackles. ABDOMEN: Soft, bowel sounds present, nontender, no distention. CENTRAL NERVOUS SYSTEM: No facial droop. Speech is clear. Obeys simple commands. Moves extremities. EXTREMITIES: No edema, no erythema seen. Rt Arm in sling. Results & Data Results & Data ([facility]) Vital Signs (Past 12 Hours) Vital Signs Temp Pulse Resp BP Pulse Ox 09/25/21 14:43 36.4 C L 79 16 134/81 98 09/25/21 07:42 36.6 C 69 16 141/82 H 97
[2021-09-26] MEDS: oxyCODONE HCL IR 5 MG TAB (IMMEDIATE RELEASE) PO PRN ×3 (04:03→20:45)
[2021-09-26] MEDS: ACETAMINOPHEN 500 MG TAB PO PRN ×2 (07:56→15:57)
[2021-09-26] MEDS: FOLIC ACID 1 MG TAB PO SCH (09:30)
[2021-09-26] MEDS: SODIUM CHLORIDE 1 GM TABLET PO SCH ×2 (09:30→20:44)
[2021-09-26] MEDS: CHOLECALCIFEROL 5,000 UNITS 125 MCG TAB PO SCH (09:30)
[2021-09-26] MEDS: THIAMINE HCL 100 MG TAB PO SCH (09:30)
[2021-09-26] MEDS: amLODIPine BESYLATE 5 MG TAB PO SCH (09:30)
--- NOTE | 2021-09-26 17:46 | Hospitalist Progress Note ---
Date of Service September 26, 2021 Assessment & Plan (1) Fracture of olecranon process, right, closed: Plan: This is a 56yo M with a PMH of chronic alcoholism, hypertension, chronic hyponatremia, history of ambulatory dysfunction, history of esophageal stenosis status post dilation who presented after multiple falls and was found to have R olecranon fracture as well as multiple electrolyte disturbances in setting of ongoing etoh abuse. Two falls morning of admission. 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 Fracture distracted by approximately 9 mm. Associated right elbow joint effusion S/P Right open reduction internal fixation olecranon fracture performed by Dr. Martinez on 09/09/21 No acute findings in admitting CT head, cervical spine CT or CXR Continue pain control Posterior splint removed by Ortho on 09/23, continue nonweightbearing RUE and sling (2) Ambulatory dysfunction: Plan: Secondary to prolonged use of alcohol with cerebellar dysfunction awaiting rehab placement (3) Frequent falls: Plan: Mostly related to chronic alcohol abuse CT head showed no acute intracranial abnormality Continue PT/OT Waiting for placement to rehab (4) Alcohol use disorder: Plan: Ongoing etoh abuse, denying drink for over a week but etoh level 40 on admission. History of DTs in setting of withdrawal in the past Completed gabapentin protocol Continue Thiamine and Folic acid qAM (5) Headache: Plan: Endorsing headache for past few days. No photophobia or phonophobia. Improves with ice. Patient reports improvement with Tylenol and oxycodone. 09/16/2021 CT head with no acute intracerebral pathology. Cerebral cortical atrophy and remote small vessel disease Encouraged repositioning, sitting in chair and ambulating with assistance. Continue ice PRN (6) Chronic hyponatremia: Plan: Na+ 124 on admission in setting of chronic etoh use, non-compliance with home salt tabs - baseline Na closer to 130 During previous admissions, nephro has recommended sodium tablets, fluid restriction of 1200 ml Na+ 133 on 09/21/2021 2000 mL FR recommended, pt doesn't want to be fluid restricted and has been adamant on not being in FR, will lift FR and monitor Na level (7) Hypomagnesemia: Plan: Replaced, resolved (8) Hypokalemia: Plan: Replaced, resolved (9) Dysphagia: Plan: H/o esophageal stricture in the past s/p dilation by GI. Need pill crushed, has tolerated soft diet previously without issue. Aspiration precautions Hypertension BP generally well controlled Patient was on BP med with amlodipine 10 mg but has not been taken it for month Amlodipine 5 mg restarted Thrombocytosis Platelets 603K 09/21/21 --> 569K --> 567K ? reactive vs trauma from olecranon fx Peripheral smear completed -clear reactive Follow CBC DVT Ppx: SCDs for now - h/o recurrent falls , he is also up and ambulating with staff Dispo -medically stable for discharge, awaiting placement Admission and Anticipated Discharge Date Admission Date: September 06, 2021 Subjective Patient was seen and examined as a follow up of R olecranon fx, awaiting placement. Right elbow pain and headache controlled with oxycodone and Tylenol. Denies chest pain or shortness of breath. No abdominal pain or nausea. No interval changes. Physical Exam Physical Exam: GENERAL: Alert and oriented x3. NAD, on RA. HEENT: No pallor, no icterus. Pupils equal, round and reactive to light. Oral mucosa moist. NECK: No JVD, no neck masses. HEART: S1 and S2 heard. Regular rate and rhythm. No murmur, no gallop. RESPIRATORY SYSTEM: Normal AP diameter. No accessory muscle use. No wheezing, no crackles. ABDOMEN: Soft, bowel sounds present, nontender, no distention. CENTRAL NERVOUS SYSTEM: No facial droop. Speech is clear. Obeys simple commands. Moves extremities. EXTREMITIES: No edema, no erythema seen. Rt Arm in sling. Results & Data Results & Data ([facility]) Vital Signs (Past 12 Hours) Vital Signs Temp Pulse Resp BP Pulse Ox 09/26/21 14:50 36.6 C 69 16 126/74 94 09/26/21 06:48 37.1 C 80 18 134/87 97
[2021-09-27] MEDS: oxyCODONE HCL IR 5 MG TAB (IMMEDIATE RELEASE) PO PRN ×2 (01:57→20:18)
[2021-09-27 06:58] LABS: BUN Creatinine Ratio 14.3 (10-20); Calcium 8.6 mg/dl (8.5-10.1); Creatinine Clr Calc Pharmacy 131.7 ml/min; Est GFR (African American) 133.1 ml/min; Est GFR (Non-African American) 114.8 ml/min; Magnesium 1.8 mg/dl (1.7-2.4); Phosphorus 3.9 mg/dl (2.5-4.9); Potassium 4.1 mmol/L (3.5-5.1)
[2021-09-27] MEDS: THIAMINE HCL 100 MG TAB PO SCH (07:44)
[2021-09-27] MEDS: ACETAMINOPHEN 500 MG TAB PO PRN ×3 (07:44→22:54)
[2021-09-27] MEDS: amLODIPine BESYLATE 5 MG TAB PO SCH (07:44)
[2021-09-27] MEDS: CHOLECALCIFEROL 5,000 UNITS 125 MCG TAB PO SCH (07:44)
[2021-09-27] MEDS: SODIUM CHLORIDE 1 GM TABLET PO SCH ×2 (07:44→20:18)
[2021-09-27] MEDS: FOLIC ACID 1 MG TAB PO SCH (07:44)
--- NOTE | 2021-09-27 10:11 | Hospitalist Progress Note ---
Date of Service September 27, 2021 Assessment & Plan (1) Fracture of olecranon process, right, closed: Plan: This is a 56yo M with a PMH of chronic alcoholism, hypertension, chronic hyponatremia, history of ambulatory dysfunction, history of esophageal stenosis status post dilation who presented after multiple falls and was found to have R olecranon fracture as well as multiple electrolyte disturbances in setting of ongoing etoh abuse. Two falls morning of admission. 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 Fracture distracted by approximately 9 mm. Associated right elbow joint effusion S/P Right open reduction internal fixation olecranon fracture performed by Dr. Martinez on 09/09/21 No acute findings in admitting CT head, cervical spine CT or CXR Continue pain control Posterior splint removed by Ortho on 09/23, continue nonweightbearing RUE and sling continue PT/OT (2) Ambulatory dysfunction: Plan: Secondary to prolonged use of alcohol with cerebellar dysfunction awaiting rehab placement (3) Frequent falls: Plan: Mostly related to chronic alcohol abuse CT head showed no acute intracranial abnormality Continue PT/OT Waiting for placement to rehab (4) Alcohol use disorder: Plan: Ongoing etoh abuse, denying drink for over a week but etoh level 40 on admission. History of DTs in setting of withdrawal in the past Completed gabapentin protocol Continue Thiamine and Folic acid qAM (5) Headache: Plan: resolved (6) Chronic hyponatremia: Plan: Na+ 124 on admission in setting of chronic etoh use, non-compliance with home salt tabs - baseline Na closer to 130 During previous admissions, nephro has recommended sodium tablets, fluid restriction of 1200 ml FR gradually lifted NA 138 this a.m., monitor (7) Hypomagnesemia: Plan: Replaced, resolved (8) Hypokalemia: Plan: Replaced, resolved (9) Dysphagia: Plan: H/o esophageal stricture in the past s/p dilation by GI. Need pill crushed, has tolerated soft diet previously without issue. Aspiration precautions Hypertension BP generally well controlled Patient was on BP med with amlodipine 10 mg but has not been taken it for month Amlodipine 5 mg restarted Thrombocytosis Platelets 603K 09/21/21 --> 569K --> 567K ? reactive vs trauma from olecranon fx Peripheral smear completed -clear reactive Follow CBC DVT Ppx: SCDs for now - h/o recurrent falls , he is also up and ambulating with staff Dispo -medically stable for discharge, awaiting placement for subacute rehab Pt was seen and examined in collaboration with Dr. Paul,please see addendum Admission and Anticipated Discharge Date Admission Date: September 06, 2021 Supervising Physician Co-Signing Physician Notes 56-year-old gentleman with PMH of chronic alcoholism, HTN, chronic hyponatremia, ambulatory dysfunction, esophageal stenosis status post dilatation is being managed for fracture of olecranon process [right] status post repair under sling and ambulatory dysfunction and frequent falls. Patient advised/counseled against drinking alcohol in future. Patient seems agreeable. His sodium level is better. Patient is stable from Ortho standpoint to discharge. Patient is awaiting placement. Upon examination, patient was comfortable, on room air, negative for lower extremity edema, heart lungs and abdomen examination WNL. RUE in Sling. I have seen and examined the patient and have discussed the case with the provider above. I agree with the assessment and plan as stated. Subjective Patient was seen and examined in room 384-1. Follow up R olecranon fx, awaiting placement. He feels his splint was taken off too soon. He complains of increased R arm pain. He is encouraged that his walking is getting better, but wishes he had more therapy. His appetite is good. He denies f/c/s, chest pain, sob, n/v/d. Review of Systems Review of Systems: All systems reviewed & are unremarkable except as noted in HPI & below Physical Exam Physical Exam: Gen: WD/WN, M, NAD, A&O x3, lack of insight HEENT: Normocephalic, atraumatic, conjunctivae moist, sclerae anicteric, mucous membranes moist. Lung: Clear to Auscultation bilaterally, no wheezes/rales/rhonchi Heart: Regular rate, regular rhythm, no murmurs, rubs, or gallops Abdomen: Soft, NT, ND +BS x 4 Extremities: No edema, RUE sling in place Skin: Warm, no rash, negative turgor. Results & Data Results & Data ([facility]) Vital Signs (Past 12 Hours) Vital Signs Temp Pulse Resp BP Pulse Ox 09/27/21 07:12 36.5 C 65 16 153/89 H 100 Laboratory Results BMP 09/27/21 06:09 Sodium 138 Potassium 4.1 Chloride 103 Carbon Dioxide 27 BUN 8 Creatinine 0.56 L Glucose 91 Calcium 8.6 Medications Administered Current Inpatient Medications Acetaminophen (Acetaminophen 500 Mg Tab) 1,000 mg PO Q6H PRN PRN Reason: MILD Pain Stop: 10/09/21 18:22 Last Admin: 09/27/21 07:44 Dose: 1,000 mg Documented by: Amlodipine Besylate (Amlodipine Besylate 5 Mg Tab) [facility] [place] Stop: 10/13/21 08:59 Last Admin: 09/27/21 07:44 Dose: 5 mg Documented by: Folic Acid (Folic Acid 1 Mg Tab) 1 mg [facility] [place] Stop: 10/06/21 22:20 Last Admin: 09/27/21 07:44 Dose: 1 mg Documented by: Hydroxyzine HCl (Hydroxyzine Hcl 25 Mg Tab) 25 mg PO BID PRN PRN Reason: itching Stop: 10/21/21 14:37 Last Admin: 09/25/21 10:25 Dose: 25 mg Documented by: Ondansetron HCl (Ondansetron Inj 2 Mg/Ml 2 Ml Vial) 4 mg IV Q6H PRN PRN Reason: Nausea Stop: 10/06/21 22:20 Oxycodone HCl (Oxycodone Hcl Ir 5 Mg Tab (Immediate Release)) 5 mg PO Q4H PRN PRN Reason: Pain Stop: 10/07/21 20:55 Last Admin: 09/27/21 01:57 Dose: 5 mg Documented by: Polyethylene Glycol (Polyethylene (Miralax) 17 Gm Pack) 17 gm PO DAILY PRN PRN Reason: Constipation Stop: 10/06/21 22:20 Sodium Chloride (Sodium Chloride 1 Gm Tablet) 1 gm PO BID [facility] Stop: 10/13/21 20:59 Last Admin: 09/27/21 07:44 Dose: 1 gm Documented by: Thiamine HCl (Thiamine Hcl 100 Mg Tab) 100 [facility] [place] Stop: 10/06/21 22:20 Last Admin: 09/27/21 07:44 Dose: 100 mg Documented by: Vitamin D (Cholecalciferol 5,000 Units 125 Mcg Tab) 5,[address] [facility] Stop: 10/01/21 09:01 Last Admin: 09/27/21 07:44 Dose: 5,000 units Documented by:
[2021-09-28] MEDS: oxyCODONE HCL IR 5 MG TAB (IMMEDIATE RELEASE) PO PRN ×3 (02:47→19:30)
[2021-09-28] MEDS: ACETAMINOPHEN 500 MG TAB PO PRN ×3 (06:40→23:06)
[2021-09-28] MEDS: THIAMINE HCL 100 MG TAB PO SCH (08:03)
[2021-09-28] MEDS: CHOLECALCIFEROL 5,000 UNITS 125 MCG TAB PO SCH (08:03)
[2021-09-28] MEDS: amLODIPine BESYLATE 5 MG TAB PO SCH (08:03)
[2021-09-28] MEDS: FOLIC ACID 1 MG TAB PO SCH (08:03)
[2021-09-28] MEDS: SODIUM CHLORIDE 1 GM TABLET PO SCH ×2 (08:03→20:20)
--- NOTE | 2021-09-28 11:22 | Hospitalist Progress Note ---
Date of Service September 28, 2021 Assessment & Plan (1) Fracture of olecranon process, right, closed: Plan: This is a 56yo M with a PMH of chronic alcoholism, hypertension, chronic hyponatremia, history of ambulatory dysfunction, history of esophageal stenosis status post dilation who presented after multiple falls and was found to have R olecranon fracture as well as multiple electrolyte disturbances in setting of ongoing etoh abuse. Two falls morning of admission. 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 Fracture distracted by approximately 9 mm. Associated right elbow joint effusion S/P Right open reduction internal fixation olecranon fracture performed by Dr. Martinez on 09/09/21 No acute findings in admitting CT head, cervical spine CT or CXR Continue pain control Posterior splint removed by Ortho on 09/23, continue nonweightbearing RUE and sling continue PT/OT (2) Ambulatory dysfunction: Plan: Secondary to prolonged use of alcohol with cerebellar dysfunction awaiting rehab placement (3) Frequent falls: Plan: Mostly related to chronic alcohol abuse CT head showed no acute intracranial abnormality Continue PT/OT Waiting for placement to rehab (4) Alcohol use disorder: Plan: Ongoing etoh abuse, denying drink for over a week but etoh level 40 on admission. History of DTs in setting of withdrawal in the past Completed gabapentin protocol Continue Thiamine and Folic acid qAM (5) Headache: Plan: resolved (6) Chronic hyponatremia: Plan: Na+ 124 on admission in setting of chronic etoh use, non-compliance with home salt tabs - baseline Na closer to 130 During previous admissions, nephro has recommended sodium tablets, fluid restriction of 1200 ml FR gradually lifted NA 138 monitor (7) Hypomagnesemia: Plan: Replaced, resolved (8) Hypokalemia: Plan: Replaced, resolved (9) Dysphagia: Plan: H/o esophageal stricture in the past s/p dilation by GI. Need pill crushed, has tolerated soft diet previously without issue. Aspiration precautions Hypertension BP generally well controlled Patient was on BP med with amlodipine 10 mg but has not been taken it for month Amlodipine 5 mg restarted Thrombocytosis Platelets 603K 09/21/21 --> 569K --> 567K ? reactive vs trauma from olecranon fx Peripheral smear completed -clear reactive Follow CBC vit b1 pending DVT Ppx: SCDs for now - h/o recurrent falls , he is also up and ambulating with staff Dispo -medically stable for discharge, awaiting placement for subacute rehab versus possibly discharge to home if able to demonstrate with PT safety Pt was seen and examined in collaboration with Dr. Paul,please see addendum Admission and Anticipated Discharge Date Admission Date: September 06, 2021 Supervising Physician Co-Signing Physician Notes 56-year-old gentleman with PMH of chronic alcoholism, HTN, chronic hyponatremia, ambulatory dysfunction, esophageal stenosis status post dilatation is being managed for fracture of olecranon process [right] status post repair under sling and ambulatory dysfunction and frequent falls. Patient advised/counseled against drinking alcohol in future. Patient seems agreeable. His sodium level is better. Patient is stable from Ortho standpoint to discharge. Patient is awaiting placement. Upon examination, patient was comfortable, on room air, negative for lower extremity edema, heart lungs and abdomen examination WNL. RUE in Sling. I have seen and examined the patient and have discussed the case with the provider above. I agree with the assessment and plan as stated. Subjective Patient was seen and examined in room 384-1. Follow up R olecranon fx, awaiting placement. Patient was seen ambulating turner with cane by himself this morning. He states he wants to continue to work on his walking and steps with hopes to maybe return to his apartment. He complains of less pain to his elbow today. Good appetite. Denies chest pain, shortness of breath, nausea, vomiting, abdominal pain, fever, chills. Review of Systems Review of Systems: All systems reviewed & are unremarkable except as noted in HPI & below Physical Exam Physical Exam: Gen: WD/WN, M, NAD, A&O x3, lack of insight, seen ambulating the turner with cane HEENT: Normocephalic, atraumatic, conjunctivae moist, sclerae anicteric, mucous membranes moist. Lung: Clear to Auscultation bilaterally, no wheezes/rales/rhonchi Heart: Regular rate, regular rhythm, no murmurs, rubs, or gallops Abdomen: Soft, NT, ND +BS x 4 Extremities: No edema, RUE sling in place Skin: Warm, no rash, negative turgor. Results & Data Results & Data ([facility]) Vital Signs (Past 12 Hours) Vital Signs Temp Pulse Resp BP Pulse Ox 09/28/21 07:57 36.7 C 67 20 142/82 H 97 09/27/21 23:29 37.0 C 67 16 131/86 98
[2021-09-29] MEDS: oxyCODONE HCL IR 5 MG TAB (IMMEDIATE RELEASE) PO PRN ×3 (02:26→19:36)
[2021-09-29] MEDS: hydrOXYzine HCl 25 MG TAB PO PRN (05:19)
[2021-09-29] MEDS: ACETAMINOPHEN 500 MG TAB PO PRN ×3 (05:31→21:52)
[2021-09-29] MEDS: SODIUM CHLORIDE 1 GM TABLET PO SCH ×2 (09:40→21:01)
[2021-09-29] MEDS: amLODIPine BESYLATE 5 MG TAB PO SCH (09:40)
[2021-09-29] MEDS: CHOLECALCIFEROL 5,000 UNITS 125 MCG TAB PO SCH (09:40)
[2021-09-29] MEDS: FOLIC ACID 1 MG TAB PO SCH (09:40)
[2021-09-29] MEDS: THIAMINE HCL 100 MG TAB PO SCH (09:40)
--- NOTE | 2021-09-29 11:51 | Hospitalist Progress Note ---
Date of Service September 29, 2021 Assessment & Plan (1) Fracture of olecranon process, right, closed: Plan: This is a 56yo M with a PMH of chronic alcoholism, hypertension, chronic hyponatremia, history of ambulatory dysfunction, history of esophageal stenosis status post dilation who presented after multiple falls and was found to have R olecranon fracture as well as multiple electrolyte disturbances in setting of ongoing etoh abuse. Two falls morning of admission. 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 Fracture distracted by approximately 9 mm. Associated right elbow joint effusion S/P Right open reduction internal fixation olecranon fracture performed by Dr. Martinez on 09/09/21 No acute findings in admitting CT head, cervical spine CT or CXR Continue pain control Posterior splint removed by Ortho on 09/23, continue nonweightbearing RUE and sling continue PT/OT (2) Ambulatory dysfunction: Plan: Secondary to prolonged use of alcohol with cerebellar dysfunction awaiting rehab placement (3) Frequent falls: Plan: Mostly related to chronic alcohol abuse CT head showed no acute intracranial abnormality Continue PT/OT Waiting for placement to rehab (4) Alcohol use disorder: Plan: Ongoing etoh abuse, denying drink for over a week but etoh level 40 on admission. History of DTs in setting of withdrawal in the past Completed gabapentin protocol Continue Thiamine and Folic acid qAM (5) Headache: Plan: resolved (6) Chronic hyponatremia: Plan: Na+ 124 on admission in setting of chronic etoh use, non-compliance with home salt tabs - baseline Na closer to 130 During previous admissions, nephro has recommended sodium tablets, fluid restriction of 1200 ml FR gradually lifted NA 138 monitor (7) Hypomagnesemia: Plan: Replaced, resolved (8) Hypokalemia: Plan: Replaced, resolved (9) Dysphagia: Plan: H/o esophageal stricture in the past s/p dilation by GI. Need pill crushed, has tolerated soft diet previously without issue. Aspiration precautions Hypertension BP generally well controlled Patient was on BP med with amlodipine 10 mg but has not been taken it for month Amlodipine 5 mg restarted Thrombocytosis Platelets 603K 09/21/21 --> 569K --> 567K ? reactive vs trauma from olecranon fx Peripheral smear completed -clear reactive Follow CBC vit b1 pending DVT Ppx: SCDs for now - h/o recurrent falls , he is also up and ambulating with staff Dispo -medically stable for discharge, awaiting placement for subacute rehab versus possibly discharge to home if able to demonstrate with PT safety Pt was seen and examined in collaboration with Dr. Paul,please see addendum Admission and Anticipated Discharge Date Admission Date: September 06, 2021 Supervising Physician Co-Signing Physician Notes 56-year-old gentleman with PMH of chronic alcoholism, HTN, chronic hyponatremia, ambulatory dysfunction, esophageal stenosis status post dilatation is being managed for fracture of olecranon process [right] status post repair under sling and ambulatory dysfunction and frequent falls. Patient advised/counseled against drinking alcohol in future. Patient seems agreeable. His sodium level is better. Patient is stable from Ortho standpoint to discharge. Patient is awaiting placement. Upon examination, patient was comfortable, on room air, negative for lower extremity edema, heart lungs and abdomen examination WNL. RUE in Sling. I have seen and examined the patient and have discussed the case with the provider above. I agree with the assessment and plan as stated. Subjective Patient was seen and examined in room 384-1. Follow up R olecranon fx, awaiting placement. Patient was seen ambulating the unit, making his third trip. He complains of getting weak and tired and therefore is going to go lay down. He feels he is getting stronger every day and walking more steadily. He offers no acute concerns. Denies chest pain, shortness of breath, nausea, vomiting, abdominal pain. Tolerating diet. Review of Systems Review of Systems: All systems reviewed & are unremarkable except as noted in HPI & below Physical Exam Physical Exam: Gen: WD/WN, M, NAD, A&O x3, lack of insight, seen ambulating the turner with cane HEENT: Normocephalic, atraumatic, conjunctivae moist, sclerae anicteric, mucous membranes moist. Lung: Clear to Auscultation bilaterally, no wheezes/rales/rhonchi Heart: Regular rate, regular rhythm, no murmurs, rubs, or gallops Abdomen: Soft, NT, ND +BS x 4 Extremities: No edema, RUE sling in place Skin: Warm, no rash, negative turgor. Results & Data Results & Data ([facility]) Vital Signs (Past 12 Hours) Vital Signs Temp Pulse Resp BP Pulse Ox 09/29/21 07:40 36.5 C 62 16 165/82 H 97 Medications Administered Current Inpatient Medications Acetaminophen (Acetaminophen 500 Mg Tab) 1,000 mg PO Q6H PRN PRN Reason: MILD Pain Stop: 10/09/21 18:22 Last Admin: 09/29/21 05:31 Dose: 1,000 mg Documented by: Amlodipine Besylate (Amlodipine Besylate 5 Mg Tab) [address] [facility] Stop: 10/13/21 08:59 Last Admin: 09/29/21 09:40 Dose: 5 mg Documented by: Folic Acid (Folic Acid 1 Mg Tab) [address] [facility] Stop: 10/06/21 22:20 Last Admin: 09/29/21 09:40 Dose: 1 mg Documented by: Hydroxyzine HCl (Hydroxyzine Hcl 25 Mg Tab) 25 mg PO BID PRN PRN Reason: itching Stop: 10/21/21 14:37 Last Admin: 09/29/21 05:19 Dose: 25 mg Documented by: Ondansetron HCl (Ondansetron Inj 2 Mg/Ml 2 Ml Vial) 4 mg IV Q6H PRN PRN Reason: Nausea Stop: 10/06/21 22:20 Oxycodone HCl (Oxycodone Hcl Ir 5 Mg Tab (Immediate Release)) 5 mg PO Q4H PRN PRN Reason: Pain Stop: 10/07/21 20:55 Last Admin: 09/29/21 09:38 Dose: 5 mg Documented by: Polyethylene Glycol (Polyethylene (Miralax) 17 Gm Pack) 17 gm PO DAILY PRN PRN Reason: Constipation Stop: 10/06/21 22:20 Sodium Chloride (Sodium Chloride 1 Gm Tablet) 1 gm PO BID [facility] Stop: 10/13/21 20:59 Last Admin: 09/29/21 09:40 Dose: 1 gm Documented by: Thiamine HCl (Thiamine Hcl 100 Mg Tab) [address] [facility] Stop: 10/06/21 22:20 Last Admin: 09/29/21 09:40 Dose: 100 mg Documented by: Vitamin D (Cholecalciferol 5,000 Units 125 Mcg Tab) 5,[address] [facility] Stop: 10/01/21 09:01 Last Admin: 09/29/21 09:40 Dose: 5,000 units Documented by:
[2021-09-30] MEDS: oxyCODONE HCL IR 5 MG TAB (IMMEDIATE RELEASE) PO PRN ×3 (01:34→14:53)
[2021-09-30] MEDS: ACETAMINOPHEN 500 MG TAB PO PRN ×2 (04:09→12:19)
[2021-09-30 06:26] LABS: Hematocrit (blood only) 33.7 % (42-52); Hemoglobin 11.5 g/dL (14.0-18.0); Mean Corpuscular Hemoglobin 30.5 pg (25-34); Mean Corpuscular Hgb Conc 34.1 g/dL (32-36); Mean Corpuscular Volume 89.4 fL (80-100); Mean Platelet Volume 8.5 fL (7.4-10.4); Platelet Count 358 K/uL (130-400); RDW Coefficient of Variation 14.5 % (11.5-14.5); RDW Standard Deviation 47.7 fL (36.4-46.3); Red Blood Count 3.77 M/uL (4.7-6.1); White Blood Count 7.36 K/uL (4.8-10.8)
[2021-09-30 06:51] LABS: BUN Creatinine Ratio 19.2 (10-20); Calcium 8.6 mg/dl (8.5-10.1); Creatinine Clr Calc Pharmacy 141.9 ml/min; Est GFR (African American) 137.2 ml/min; Est GFR (Non-African American) 118.4 ml/min; Potassium 3.7 mmol/L (3.5-5.1)
[2021-09-30] MEDS: SODIUM CHLORIDE 1 GM TABLET PO SCH (08:51)
[2021-09-30] MEDS: FOLIC ACID 1 MG TAB PO SCH (08:51)
[2021-09-30] MEDS: THIAMINE HCL 100 MG TAB PO SCH (08:51)
[2021-09-30] MEDS: CHOLECALCIFEROL 5,000 UNITS 125 MCG TAB PO SCH (08:51)
[2021-09-30] MEDS: amLODIPine BESYLATE 5 MG TAB PO SCH (08:54)
--- NOTE | 2021-09-30 13:51 | Discharge Summary ---
Date of Service September 30, 2021 Admission HPI Per Admitting Provider This is a 56yo M with a PMH of chronic alcoholism, hypertension, chronic hyponatremia, history of ambulatory dysfunction, history of esophageal stenosis status post dilation who presents after multiple falls this morning. Patient resides at [facility] where he lives alone. Used to ambulate with walker but has not had one for quite some time. Initially fell in his bathroom after urinating but denies any head trauma or loss of consciousness. A half an hour later, patient was ambulating towards front door to bean [employer] order when he fell again, landing on right arm. Denies any preceding lightheadedness, chest pain or shortness of breath. Has been feeling significantly less steady on his feet for the past week. Was previously in a halfway and desires a higher level of care again. Does not feel safe living independently. Has not been taking any of home medications or supplements. Denies any alcohol use since last week but cannot quantify amount. States that appetite is okay and unchanged. Endorses continued right arm pain that went from a 9/10 to a 7/10 after pain medication in ED. No fever, chills, lightheadedness, visual changes, chest pain, shortness of breath, nausea, vomiting, abdominal pain, dysuria, diarrhea or constipation. Admission Exam Per Admitting Provider General Appearance:WD/WN, vitals as above, lying in bed, pleasant, poorly groomed, conversing without issue Head: normocephalic, atraumatic Eyes:normal inspection, PERRL, conjunctivae normal, anicteric sclerae ENT: hard of hearing, external ear and nose normal, dry mucous membranes of oropharynx Neck: normal visual inspection, trachea midline, no thyromegaly Respiratory:normal respiratory effort, lungs clear to auscultation, no wheeze, rales, rhonchi. No accessory muscle use Cardiovascular: regular rate, rhythm, no murmur, normal peripheral pulses, no BLE edema. Vessels: no JVD Chest: normal inspection of chest Abdomen/GI: normal bowel sounds, soft, nontender, no hepatosplenomegaly Extremities/Musculoskeletal:+RUE in splint. Distal RUE NVI. No cyanosis or clubbing, extremities motor strength 5/5 Neurologic: PERRL, EOMI, accommodation nl, no face palsy, no dysarthria, CN's II-XI intact bilaterally and moves all extremities Psychiatric:A+Ox3, + poor insight and judgement Skin: no rashes, normal color, warm/dry Principal Diagnosis Closed fracture of right olecranon process Ambulatory dysfunction Frequent falls Alcohol use disorder Discharge Exam GENERAL: Alert and oriented x3. NAD, on RA. HEENT: No pallor, no icterus. Pupils equal, round and reactive to light. Oral mucosa moist. NECK: No JVD, no neck masses. HEART: S1 and S2 heard. Regular rate and rhythm. No murmur, no gallop. RESPIRATORY SYSTEM: Normal AP diameter. No accessory muscle use. No wheezing, no crackles. ABDOMEN: Soft, bowel sounds present, nontender, no distention. CENTRAL NERVOUS SYSTEM: No facial droop. Speech is clear. Obeys simple commands. Moves extremities. EXTREMITIES: No edema, no erythema seen. Rt Arm in sling. Discharge Data Allergies Allergy/AdvReac Type Severity Reaction Status Date / Time hydralazine Allergy Intermediate rapid drop Verified 05/12/21 08:48 in BP/Vomiting Penicillins AdvReac Mild TIRED Verified 05/12/21 08:48 Procedures Performed Operation Date: 09/09/21 15:20 Actual Procedures p Right open reduction internal fixation olecranon fracture(Right) - Patrick Martinez DO Ordered Studies 09/06/21 14:14 CT cervical spine wo con Stat CT head/brain wo con Stat 09/09/21 15:00 FL elbow RT 3V RTN Routine 09/16/21 03:27 CT head/brain wo con Urgent Hospital Course (1) Fracture of right olecranon process: This is a 56yo M with a PMH of chronic alcoholism, hypertension, chronic hyponatremia, history of ambulatory dysfunction, history of esophageal stenosis status post dilation who presented after multiple falls and was found to have R olecranon fracture as well as multiple electrolyte disturbances in setting of ongoing etoh abuse. He was managed for the following: (1) Fracture of olecranon process, right, closed: Plan: Two falls morning of admission. 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 Fracture distracted by approximately 9 mm. Associated right elbow joint effusion S/P Right open reduction internal fixation olecranon fracture performed by Dr. Martinez on 09/09/21 No acute findings in admitting CT head, cervical spine CT or CXR Continue pain control Posterior splint removed by Ortho on 09/23, continue nonweightbearing RUE and sling continue PT/OT, f/u with ortho is 6 weeks from Sx. (2) Ambulatory dysfunction: Plan: Secondary to prolonged use of alcohol with cerebellar dysfunction awaiting rehab placement (3) Frequent falls: Plan: Mostly related to chronic alcohol abuse CT head showed no acute intracranial abnormality Continue PT/OT Waiting for placement to rehab (4) Alcohol use disorder: Plan: Ongoing etoh abuse, denying drink for over a week but etoh level 40 on admission. History of DTs in setting of withdrawal in the past Completed gabapentin protocol Continue Thiamine and Folic acid qAM Strongly advised against any drinking of alcohol products in future. (5) Headache: Plan: resolved (6) Chronic hyponatremia: Plan: Na+ 124 on admission in setting of chronic etoh use, non-compliance with home salt tabs - baseline Na closer to 130 During previous admissions, nephro has recommended sodium tablets, fluid restriction of 1200 ml c/w FR 2L upon DC Currently resolved. (7) Hypomagnesemia: Plan: Replaced, resolved (8) Hypokalemia: Plan: Replaced, resolved (9) Dysphagia: Plan: H/o esophageal stricture in the past s/p dilation by GI. Need pill crushed, has tolerated soft diet previously without issue. Aspiration precautions Following instructions were communicated to the patient at the point of discharge: Follow-up with your primary care physician within a week time. You underwent open reduction and internal fixation of right olecranon fracture on 09/09/2021, you are recommended to follow-up with your orthopedics 6 weeks from the date of your surgery. Mobility instruction as per orthopedics. Strongly advised against any alcohol use in future. You are started on a blood pressure medication because of your high blood pressure, you will need outpatient monitoring of your blood pressure and necessary adjustment/up titration of your blood pressure medications as appropriate. Fall precaution at home. Take your medications as prescribed. Total Time Total Time Spent Total Time Spent (In Minutes): 35 Discharge Plan Discharge Items Patient Disposition: Transfer Inpatient Rehab Fac Reason For Visit: FALLS, ETOH ABUSE, OLECRANON FRACTURE, Discharge Diagnosis: Closed fracture of right olecranon process Ambulatory dysfunction Frequent falls Alcohol use disorder Activity: Per Instructions section Non-emergency contact: Primary Care Provider Call non-emergency contact if: you have any medication questions, your symptoms worsen and your temperature is above 101 Follow-up/Referrals: PCP,NO [Primary Care Provider] - Diet: Regular Fluids: 2000ml (8 cups) Diet Texture: Dental soft (bite-sized) Addtl Attending Provider Instructions: Follow-up with your primary care physician within a week time. You underwent open reduction and internal fixation of right olecranon fracture on 09/09/2021, you are recommended to follow-up with your orthopedics 6 weeks from the date of your surgery. Mobility instruction as per orthopedics. Strongly advised against any alcohol use in future. You are started on a blood pressure medication because of your high blood pressure, you will need outpatient monitoring of your blood pressure and necessary adjustment/up titration of your blood pressure medications as appropriate. Fall precaution at home. Take your medications as prescribed. Addtl Apartment Maintenance Manager Provider Instructions: ORTHOPEDIC INSTRUCTIONS Activity Recommendations: Stay in the sling is much as possible so you are not tempted to use your elbow. You may use your hand and wrist. No heavy lifting. He will likely be in the sling for 4 additional weeks. Showering: May shower Follow-Up Visit: Follow-up with Dr. Martinez 6 weeks after your day of surgery. We will get some x-rays and likely start with some therapy. Please call the office to make an appointment for a time that works for you Pending Studies at Discharge: No Stand-Alone Forms: My [facility] [employer] Skilled Items Patient informed of condition?: Yes DNR: No Discharge Level of Care: Acute rehab Communicable Disease: No Discharge Prognosis: Stable Lines: None Urinary Catheter: No Medications and DC Order Prescriptions: New amlodipine [Norvasc] 5 mg Tablet 5 mg PO QAM Qty: 30 RF: 0 acetaminophen [Tylenol Extra Strength] 500 mg Tablet 1,000 mg PO Q6H PRN (Reason: pain) 15 Days Qty: 120 RF: 0 hydroxyzine HCl 25 mg Tablet 25 mg PO BID PRN (Reason: itching) Qty: 30 RF: 0 oxycodone 5 mg Tablet 5 mg PO Q8H Qty: 9 RF: 0 sodium chloride 1 gram Tablet 1 g PO BID 15 Days Qty: 30 RF: 0 folic acid 1 mg Tablet 1 mg PO QAM Qty: 30 RF: 0 thiamine HCl (vitamin B1) 100 mg Tablet 100 mg PO QAM Qty: 14 RF: 0 cholecalciferol (vitamin D3) [Vitamin D3] 25 mcg (1,000 unit) capsule 25 mcg PO DAILY 30 Days Qty: 30 RF: 0 Discharge Orders: Discharge Order (Routine); Ordered 09/30/21 Ordered By: Eden Paul Admission Data Admit Date/Time: 09/06/21 16:24 Attending Provider: Eden Paul Admit Provider: Conner Santiago Primary Care Provider: PCP,NO Other Providers: [facility] ; [facility], ; Wolf Fleming ; Hortencia Gonzalez ; Savita Saba ; [facility] ; [facility]
== END 2021-09-30 17:17 | DRG 511 ==
LOC: ED 13:21 → SUATTDRO 16:24 → EDINP 16:24 → 1E 09-07 22:13 → 3N 09-10 21:51

== ENCOUNTER 2021-10-23 20:15 | Inpatient (IN) ==
[2021-10-23] MEDS ORDERED: ACETAMINOPHEN 1000 MG/100 ML IV IV STA (21:04)
--- NOTE | 2021-10-23 21:09 | Emergency Department Note ---
Impression & Plan Weakness, Hypomagnesemia, Rhabdomyolysis, Right elbow pain ED Provider Note NAME: ANG MEDEL AGE: 56 SEX: M : 1965 ARRIVES VIA: Ambulance INFORMANT: [Patient][ems] ED PROVIDER(S): [Froy Reardon MD] CHIEF COMPLAINT: Fall, weakness HISTORY OF PRESENT ILLNESS: The patient is a 56-year-old male who presents by EMS for weakness and falling. The patient states that he was a bit weak this morning but as the day went on, his legs became so weak that he could not support his own weight. He says both legs are weak. He has been crawling on the floor. He complains of some increased right elbow pain today, he has a history of fracture and surgery on the right elbow. The patient drinks beer on a daily basis, a few a day. He does not think alcohol has anything to do with why he is here. He has not had cough or shortness of breath or chest pain. No abdominal pain. No vomiting or diarrhea. He believes he is well-hydrated. REVIEW OF SYSTEMS: See HPI for pertinent positives and negatives. A total of ten systems were reviewed and were otherwise negative. PMHx/PSHx: See Below SOCIAL HISTORY: See Below. PHYSICAL EXAM: GENERAL: Patient is in no acute distress. HEENT: No acute trauma, normocephalic atraumatic, mucous membranes moist, no nasal congestion, no scleral icterus. NECK: No stridor, no adenopathy, no meningismus, trachea is midline. LUNGS: Clear to auscultation bilaterally, no wheeze, no rhonchi, breath sounds equal. HEART: Mildly tachycardic, regular rhythm, no murmurs. ABDOMEN: Soft, nontender, bowel sounds positive, no hernias, no peritonitis. EXTREMITIES: No cyanosis or edema, full range of motion of all the joints without pain or difficulty, no signs for acute trauma. There is evidence for recent surgery to the right elbow, the incision is healing well. NEUROLOGIC: Oriented x 3. No facial droop or speech slur. Able to lift both legs off the bed equally. SKIN: No rash, no jaundice, no diaphoresis. DIFFERENTIAL DIAGNOSIS: Infection, UTI, alcohol withdrawal or abuse, dehydration, metabolic abnormality, hypo/hyperglycemia, electrolyte disturbance, anemia, hypoxia, cardiac sources, i ntracerebral event, toxicologic issues, stroke, TIA, as well as other pathologies. EMERGENCY DEPARTMENT COURSE/PROCEDURES: ECG: Indication was weakness. The ECG shows a normal sinus rhythm with a rate of 90. There is no ST ovation, no PVCs. The QTC is 459 Continuous Cardiac Monitoring: An order was placed for continuous cardiac monitoring. The monitor shows a rate of 105 with sinus tachycardia. MEDICAL DECISION MAKING: There is no leukocytosis. The patient does have a mild anemia however, this is baseline looking back at previous testing. There is a normal platelet count. Magnesium is low 1.6. No renal failure. Lactic acid level was not elevated making sepsis less likely. Total creatinine kinase was high at over 600, this is consistent with some early rhabdomyolysis. There was no concerning liver enzyme elevation. The patient appeared to be in a euthyroid state. ECG shows a normal sinus rhythm, no obvious ischemia. Cardiac enzyme testing x1 is not consistent with acute cardiac injury. Urinalysis shows some ketones consistent with dehydration, no infection. Alcohol level was undetectable. Covid test is currently pending. Chest film does not show pneumonia or CHF. Right elbow film shows his hardware to be intact. No new fractures. Head CT shows no acute bleed or mass-effect. The patient did not have any focal neurologic findings. He apparently has been crawling around on the floor because of leg weakness. The patient is in need of a hospital stay. He requires treatment for his rhabdomyolysis. He needs hydration and potassium supplementation. The cause for the weakness is not completely clear. He does have a history of alcohol abuse/misuse but denies any heavy alcohol use lately. He states that he has significantly decrease his alcohol intake and does not think that alcohol has anything to do with his presentation today. He does not feel he is in alcohol withdrawal. I spoke with the patient, I talked to case management. The on-call hospitalist has been consulted. During the patient's stay, he was given IV saline for hydration. He was given IV Tylenol for his elbow pain. He received IV morphine for his elbow pain. He was given IV magnesium. He received IV labetalol for his mildly elevated blood pressure. Past Med/Surg History Medical History Adult failure to thrive Alcohol use disorder Ambulatory dysfunction Anemia Anxiety Aortic root dilation Ataxia Bunion of unspecified foot Dementia DTs (delirium tremens) Esophageal tear Flat foot, acquired Frequent falls Generalized atherosclerosis Generalized weakness Hammer toe, acquired unspecified Hearing deficit Hereditary and idiopathic neuropathy, unspecified History of COVID-19 ? 07/17/20 per records History of esophageal dilatation last done 04/16/21 @ [facility] History of esophageal stricture Hx of fracture of hip Hypertension Hypokalemia Hypomagnesemia shelter resident velasquez 2500 cc fluid daily restriction was noted in records Sensorineural hearing loss (SNHL) of both ears Subgaleal hemorrhage Surgical History History of esophagogastroduodenoscopy (EGD) (~04/16/21) History of hip surgery s/p fall and fx Family History Other Cancer Hypertension Denies family history of Myocardial infarction Stroke Social History Smoking Status: Never smoker Tobacco Type: Cigarettes Second Hand Exposure: No; Hx Alcohol Use: Yes Alcohol type: beer Alcohol Intake Frequency Comment: 7-10 beers a day, uncertain which kind of beer Hx Substance Use: No Preferred Language: Malawian Communication Ability: Effective Visual Impairment: No Limitations Hearing Ability: Hard of Hearing [employer]ist [employer] Required: No Beliefs That Will Affect Care: None marital status: Single Current Living Situation: Other Current Living Situation Comment: [address] Feels Safe at Home: No Is there a partner from a previous relationship who is making you feel unsafe now?: No Assistive Devices: Cane Allergies Allergies Allergy/AdvReac Type Severity Reaction Status Date / Time hydralazine Allergy Intermediate rapid drop Verified 10/23/21 21:21 in BP/Vomiting Penicillins AdvReac Mild TIRED Verified 10/23/21 21:21 Home Meds Home Medications Medication Instructions Recorded Confirmed [id number] 250 1 tab PO BID PRN 10/23/21 10/23/21 mg-250 mg-65 mg tablet (Excedrin Extra Strength) Results & Data (ED) Vital Signs Vital Signs - 24 hr 10/23/21 20:22 10/23/21 23:00 10/23/21 23:41 Temperature 36.8 C Temperature Source Oral Pulse Rate 105 H 90 100 H Pulse Rate [Finger] Pulse Rhythm Regular Respiratory Rate 20 16 Respiratory Effort / Characteristics Non-Labored Respiratory Depth Normal Respiratory Pattern Regular Blood Pressure 183/106 H 170/99 H 175/108 H Blood Pressure [Left Arm] Blood Pressure Mean 131 122 130 Blood Pressure Mean [Left Arm] Blood Pressure Position Lying Pulse Oximetry 97 95 96 Oxygen Delivery Method Room Air Sepsis Recent Fever Within 48 Hours No Sepsis New/Unexplained Change in Mental Status No Sepsis Action Taken by Nursing No Action Required 10/23/21 23:42 10/23/21 23:43 10/24/21 00:00 Temperature Temperature Source Pulse Rate 99 H 94 H Pulse Rate [Finger] 96 H Pulse Rhythm Respiratory Rate 18 Respiratory Effort / Characteristics Respiratory Depth Respiratory Pattern Blood Pressure 186/104 H 163/104 H Blood Pressure [Left Arm] 175/108 H Blood Pressure Mean 131 123 Blood Pressure Mean [Left Arm] 130 Blood Pressure Position Pulse Oximetry 97 96 97 Oxygen Delivery Method Room Air Sepsis Recent Fever Within 48 Hours Sepsis New/Unexplained Change in Mental Status Sepsis Action Taken by Nursing 10/24/21 00:30 10/24/21 00:38 10/24/21 00:52 Temperature Temperature Source Pulse Rate 87 96 H 80 Pulse Rate [Finger] Pulse Rhythm Respiratory Rate 14 Respiratory Effort / Characteristics Respiratory Depth Respiratory Pattern Blood Pressure 170/103 H 163/113 H 166/101 H Blood Pressure [Left Arm] Blood Pressure Mean 125 129 122 Blood Pressure Mean [Left Arm] Blood Pressure Position Pulse Oximetry 95 95 96 Oxygen Delivery Method Room Air Sepsis Recent Fever Within 48 Hours Sepsis New/Unexplained Change in Mental Status Sepsis Action Taken by Group Home Medications Current Medication List: was personally reviewed by me Laboratory Data Attestation: I reviewed the patient's lab results. Result diagrams: 10/23/21 21:15 10/23/21 21:15 Lab Results 10/23/21 10/23/21 10/23/21 Range/Units 21:15 21:15 21:15 WBC 7.70 (4.8-10.8) K/uL RBC 4.14 L (4.7-6.1) M/uL Hgb 12.5 L (14.0-18.0) g/dL Hct 37.5 L (42-52) % MCV 90.6 (80-100) fL MCH 30.2 (25-34) pg MCHC 33.3 (32-36) g/dL RDW Std Deviation 49.9 H (36.4-46.3) fL RDW Coeff of Luis 15.1 H (11.5-14.5) % Plt Count 198 (130-400) K/uL MPV 9.0 (7.4-10.4) fL Immature Gran % (Auto) 0.1 % Neut % (Auto) 77.4 % Lymph % (Auto) 11.4 % [place] % (Auto) 10.9 % Eos % (Auto) 0.1 % Baso % (Auto) 0.1 % Neut # (Auto) 5.95 (1.4-6.5) K/uL Lymph # (Auto) 0.88 L (1.2-3.4) K/uL [place] # (Auto) 0.84 H (0.11-0.59) K/uL Eos # (Auto) 0.01 (0-0.5) K/uL Baso # (Auto) 0.01 (0-0.2) K/uL Immature Gran # (Auto) 0.01 (0.00-0.02) K/uL Sodium 135 L (136-145) mmol/L Potassium 3.5 (3.5-5.1) mmol/L Chloride 99 (98-107) mmol/L Carbon Dioxide 19 L (21-32) mmol/L Anion Gap 17 H (3-11) BUN 6 (6-23) mg/dl Creatinine 0.63 (0.6-1.4) mg/dl Est Cr Clr Drug Dosing 133.9 ml/min Est GFR ( Amer) 126.8 ml/min Est GFR (Non-Af Amer) 109.4 ml/min BUN/Creatinine Ratio 9.5 L (10-20) Glucose 96 (70-99(Fasting)) mg/dl Lactate (0.4-2.0) mmol/L Calcium 8.8 (8.5-10.1) mg/dl Magnesium 1.6 L (1.7-2.4) mg/dl Total Bilirubin 0.8 (0.2-1.0) mg/dl AST 36 (13-39) U/L ALT 11 (7-52) U/L Alkaline Phosphatase 101 (34-104) U/L Total Creatine Kinase 621 H (30-223) U/L Troponin I < 0.03 (0-0.04) ng/ml Total Protein 7.6 (6.0-8.3) gm/dl Albumin 4.3 (3.4-5.0) gm/dl Globulin 3.3 (2.5-4.0) gm/dl Albumin/Globulin Ratio 1.3 (0.9-2) TSH 0.861 (0.300-4.500) uIu/ml Urine Color Urine Appearance (Clear) Urine pH (4.5-7.5) Ur Specific [place] (1.000-1.030) Urine Protein (Negative) Urine Glucose (UA) (Negative) Urine Ketones (Negative) Urine Blood (Negative) Urine Nitrite (Negative) Urine Bilirubin (Negative) Urine Urobilinogen (Negative) Ur Leukocyte Esterase (Negative) Urine WBC (Auto) (0-5) /hpf Urine RBC (Auto) (0-4) /hpf U Hyaline Cast (Auto) (0-5) /lpf U Epithel Cells (Auto) (0-5) /lpf Urine Bacteria (Auto) (Negative) Ethyl Alcohol mg/dL (<10.0) mg/dl 10/23/21 10/23/21 10/23/21 Range/Units 21:15 21:39 21:39 WBC (4.8-10.8) K/uL RBC (4.7-6.1) M/uL Hgb (14.0-18.0) g/dL Hct (42-52) % MCV (80-100) fL MCH (25-34) pg MCHC (32-36) g/dL RDW Std Deviation (36.4-46.3) fL RDW Coeff of Luis (11.5-14.5) % Plt Count (130-400) K/uL MPV (7.4-10.4) fL Immature Gran % (Auto) % Neut % (Auto) % Lymph % (Auto) % [place] % (Auto) % Eos % (Auto) % Baso % (Auto) % Neut # (Auto) (1.4-6.5) K/uL Lymph # (Auto) (1.2-3.4) K/uL [place] # (Auto) (0.11-0.59) K/uL Eos # (Auto) (0-0.5) K/uL Baso # (Auto) (0-0.2) K/uL Immature Gran # (Auto) (0.00-0.02) K/uL Sodium (136-145) mmol/L Potassium (3.5-5.1) mmol/L Chloride (98-107) mmol/L Carbon Dioxide (21-32) mmol/L Anion Gap (3-11) BUN (6-23) mg/dl Creatinine (0.6-1.4) mg/dl Est Cr Clr Drug Dosing ml/min Est GFR ( Amer) ml/min Est GFR (Non-Af Amer) ml/min BUN/Creatinine Ratio (10-20) Glucose (70-99(Fasting)) mg/dl Lactate 1.6 (0.4-2.0) mmol/L Calcium (8.5-10.1) mg/dl Magnesium (1.7-2.4) mg/dl Total Bilirubin (0.2-1.0) mg/dl AST (13-39) U/L ALT (7-52) U/L Alkaline Phosphatase (34-104) U/L Total Creatine Kinase (30-223) U/L Troponin I (0-0.04) ng/ml Total Protein (6.0-8.3) gm/dl Albumin (3.4-5.0) gm/dl Globulin (2.5-4.0) gm/dl Albumin/Globulin Ratio (0.9-2) TSH (0.300-4.500) uIu/ml Urine Color Yellow Urine Appearance Clear (Clear) Urine pH 5.5 (4.5-7.5) Ur Specific [place] 1.016 (1.000-1.030) Urine Protein 2+ H (Negative) Urine Glucose (UA) Negative (Negative) Urine Ketones 3+ H (Negative) Urine Blood 2+ H (Negative) Urine Nitrite Negative (Negative) Urine Bilirubin Negative (Negative) Urine Urobilinogen Negative (Negative) Ur Leukocyte Esterase Negative (Negative) Urine WBC (Auto) 1-5 (0-5) /hpf Urine RBC (Auto) 0-4 (0-4) /hpf U Hyaline Cast (Auto) 1-5 (0-5) /lpf U Epithel Cells (Auto) 5-10 H (0-5) /lpf Urine Bacteria (Auto) Negative (Negative) Ethyl Alcohol mg/dL < 10.0 (<10.0) mg/dl Administered Medications Discontinued Medications Acetaminophen (Acetaminophen 1000 Mg/100 Ml Iv) 1,000 mg IV NOW STA Stop: 10/23/21 21:05 Last Admin: 10/23/21 21:23 Dose: 1,000 mg Documented by: [id number] Amlodipine Besylate (Amlodipine Besylate 5 Mg Tab) 5 mg PO NOW STA Stop: 10/24/21 00:52 Last Admin: 10/24/21 01:19 Dose: 5 mg Documented by: [id number] Gabapentin (Gabapentin 600 Mg Tab) 1,200 mg PO NOW STA Stop: 10/24/21 00:50 Last Admin: 10/24/21 01:18 Dose: 1,200 mg Documented by: [id number] Sodium Chloride (Nss 1000ml) 1,000 mls @ 999 mls/hr IV .Q1H1M YOMAIRA Stop: 10/23/21 22:15 Last Infusion: 10/23/21 22:29 Dose: 0 mls/hr Documented by: [id number] Admin: 10/23/21 21:23 Dose: 999 mls/hr Documented by: [id number] Magnesium Sulfate/Dextrose (Magnesium Sulfate / D5w) 1 gm in 100 mls @ 100 mls/hr IV Q1H YOMAIRA Stop: 10/24/21 00:15 Last Infusion: 10/24/21 00:48 Dose: 0 mls/hr Documented by: [id number] Admin: 10/23/21 23:53 Dose: 100 mls/hr Documented by: [id number] Infusion: 10/23/21 23:30 Dose: 100 mls/hr Documented by: [id number] Admin: 10/23/21 22:30 Dose: 100 mls/hr Documented by: [id number] Thiamine HCl 100 mg/ Syringe 10 mls @ 2 mls/min IV NOW STA Stop: 10/24/21 00:34 Last Admin: 10/24/21 01:19 Dose: 2 mls/min Documented by: [id number] Labetalol HCl (Labetalol Hcl Iv 5 Mg/Ml 20ml) 10 mg IV NOW STA Stop: 10/23/21 23:53 Last Admin: 10/24/21 00:37 Dose: 10 mg Documented by: [id number] Cosigned by: [id number] Morphine Sulfate (Morphine Sulfate 4 Mg/Ml 1 Ml Carp\Vial) 4 mg IV NOW STA Stop: 10/23/21 23:31 Last Admin: 10/23/21 23:40 Dose: 4 mg Documented by: [id number] Oxycodone HCl (Oxycodone Hcl Ir 5 Mg Tab (Immediate Release)) 5 mg PO NOW STA Stop: 10/24/21 00:50 Last Admin: 10/24/21 01:16 Dose: 5 mg Documented by: [id number] Imaging Data My Impression: Chest x-ray: There is no pneumonia, CHF or pneumothorax per my review. Right elbow film: There is no acute fracture. His hardware is intact. No bony dislocation. Radiologist's Impression: Head CT 10/23/21 21:04 CT head/brain wo con CLINICAL HISTORY: weakness, fall Technique: Contiguous axial CT images of the head were acquired from the base of the skull to the vertex without intravenous contrast administration. Images were viewed in brain, subdural and bone windows. Automated dose lowering techniques and/or adjustment according to patient size were utilized for this exam. Comparison: None available at the time of this dictation. Findings: Areas of decreased attenuation are present in the periventricular and subcortical white matter bilaterally consistent with small vessel ischemic disease. Generalized cerebral atrophy with commensurate enlargement of the ventricles, sulci, and cisterns is also present. There is no acute intracranial hemorrhage or evidence of acute territorial infarction. No shift of the midline structures, mass effect, or extra-axial abnormalities are shown. Athero sclerotic calcifications are present in the intracranial segments of the internal carotid arteries. Imaged portions of the paranasal sinuses and mastoid air cells are clear. The orbits appear normal. There are no acute fractures of the calvaria or scalp swelling. Impression: No acute intracranial hemorrhage, no evidence of acute territorial infarction or other acute intracranial disease process. ACT 112: Negative or not required by law. Electronically signed by: Louie Chavarria M.D. 10/23/2021 9:54 PM Discharge Plan Visit Data Chief Complaint: Fall Stated Complaint: Fall, Weakness ED Provider: Froy Reardon Discharge Problem: Weakness, Hypomagnesemia, Rhabdomyolysis, Right elbow pain Patient Disposition: Admitted As Inpatient Condition: Fair Forms Stand Alone Forms: My [facility] PureHistory Prescriptions Prescriptions: No Action Excedrin Extra Strength 250-250-65 mg Tablet 1 tab PO BID PRN (Reason: Pain) RF: 0 Referrals Referrals: PCP,NO [Primary Care Provider] -
[2021-10-23] MEDS ORDERED: SODIUM CHLORIDE 0.9% 1000ML 1,000 ML IV SCH (21:15)
[2021-10-23 21:42] LABS: Basophils # (auto) 0.01 K/uL (0-0.2); Basophils % (auto) 0.1 %; Eosinophils # (auto) 0.01 K/uL (0-0.5); Eosinophils % (auto) 0.1 %; Hematocrit (blood only) 37.5 % (42-52); Hemoglobin 12.5 g/dL (14.0-18.0); Immature Granulocytes # (auto) 0.01 K/uL (0.00-0.02); Immature Granulocytes % (auto) 0.1 %; Lymphocytes # (auto) 0.88 K/uL (1.2-3.4); Lymphocytes % (auto) 11.4 %; Mean Corpuscular Hemoglobin 30.2 pg (25-34); Mean Corpuscular Hgb Conc 33.3 g/dL (32-36); Mean Corpuscular Volume 90.6 fL (80-100); Monocytes # (auto) 0.84 K/uL (0.11-0.59); Monocytes % (auto) 10.9 %; Neutrophils # (auto) 5.95 K/uL (1.4-6.5); Neutrophils % (auto) 77.4 %; Platelet Count 198 K/uL (130-400); RDW Coefficient of Variation 15.1 % (11.5-14.5); RDW Standard Deviation 49.9 fL (36.4-46.3); Red Blood Count 4.14 M/uL (4.7-6.1)
--- NOTE | 2021-10-23 21:55 | CT Scan Report ---
CT head/brain wo con CLINICAL HISTORY: weakness, fall Technique: Contiguous axial CT images of the head were acquired from the base of the skull to the anshul shireen without intravenous contrast administration. Images were viewed in brain, subdural and [facility]. Automated dose lowering techniques and/or adjustment according to patient size were utilized for this exam. Comparison: None available at the time of this dictation. Findings: Areas of decreased attenuation are present in the periventricular and subcortical white matter bilate rally consistent with small vessel ischemic disease. Generalized cerebral atrophy with commensurate e nlargement of the ventricles, sulci, and cisterns is also present. There is no acute intracranial hem orrhage or evidence of acute territorial infarction. No shift of the midline structures, mass effect, or extra-axial abnormalities are shown. Atherosclerotic calcifications are present in the intracran ial segments of the internal carotid arteries. Imaged portions of the paranasal sinuses and mastoid air cells are clear. The orbits appear normal. There are no acute fractures of the calvaria or scalp swelling. Impression: No acute intracranial hemorrhage, no evidence of acute territorial infarction or other acute intracra nial disease process. ACT 112: Negative or not required by law. Electronically signed by: Louie Chavarria M.D. 10/23/2021 9:54 PM
[2021-10-23 22:01] LABS: Appearance Urine Clear (Clear); Bacteria Urine Automated Negative (Negative); Bilirubin Urine Negative (Negative); Blood Urine 2+ (Negative); Color Urine Yellow; Glucose Urine UA Negative (Negative); Ketones Urine 3+ (Negative); Leukocyte Esterase Urine Negative (Negative); Nitrite Urine Negative (Negative); Protein Urine 2+ (Negative); RBC Urine Automated 0-4 /hpf (0-4); Specific Gravity Urine 1.016 (1.000-1.030); Urobilinogen Urine Negative (Negative); pH Urine 5.5 (4.5-7.5)
[2021-10-23 22:07] LABS: Troponin I < 0.03 ng/ml (0-0.04)
[2021-10-23 22:10] LABS: Alanine Aminotransferase 11 U/L (7-52); Albumin Globulin Ratio 1.3 (0.9-2); Albumin Level 4.3 gm/dl (3.4-5.0); Alkaline Phosphatase 101 U/L (34-104); Anion Gap 17 (3-11); Aspartate Aminotransferase 36 U/L (13-39); BUN Creatinine Ratio 9.5 (10-20); Bilirubin,Total 0.8 mg/dl (0.2-1.0); Blood Urea Nitrogen 6 mg/dl (6-23); Calcium 8.8 mg/dl (8.5-10.1); Carbon Dioxide 19 mmol/L (21-32); Chloride 99 mmol/L (98-107); Creatine Kinase 621 U/L (30-223); Creatinine Clr Calc Pharmacy 133.9 ml/min; Est GFR (African American) 126.8 ml/min; Est GFR (Non-African American) 109.4 ml/min; Globulin 3.3 gm/dl (2.5-4.0); Glucose 96 mg/dl (70-99(Fasting)); Magnesium 1.6 mg/dl (1.7-2.4); Potassium 3.5 mmol/L (3.5-5.1); Sodium 135 mmol/L (136-145); Total Protein 7.6 gm/dl (6.0-8.3)
[2021-10-23] MEDS: MAGNESIUM SULFATE / D5W 1 GM/100 ML BAG IV SCH ×2 (22:30→23:53)
[2021-10-23] MEDS ORDERED: MoRPHine SULFATE 4 MG/ML 1 ML CARP\\VIAL IV STA (23:30)
[2021-10-23] MEDS ORDERED: LABETALOL HCL IV 5 MG/ML 20ML IV STA (23:52)
[2021-10-24] MEDS ORDERED: cloNIDine HCL 0.1 MG TAB PO STA (00:24)
--- NOTE | 2021-10-24 00:28 | History & Physical Report ---
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 Monitor CPK response to IVF PT OT eval DVT prophylaxis per Lovenox subcu Full code Text document was generated using natue voice recognition software. It may contain grammatical or spelling errors. Kindly contact undersigned for clarification of any documentation item in question. History of Present Illness Chief Complaint: Fall, right elbow pain Primary Care Provider: Dr. Burleson History obtained from patient and records. History somewhat limited from patient secondary to marked hearing impairment. 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 Last confinement September 06 to September 30, 2021 for right olecranon fracture status post surgery. Patient discharged to rehab facility later returned to home. Patient noncompliant with Amlodipine blood pressure medicine prescribed during recent confinement. Yesterday morning, patient felt weak and unstable on his feet. He fell down on it and his right arm. Subsequent right elbow pain. No headache, no LOC, no chest pain, no S OB. Patient brought to the ER for evaluation. MEDICAL HISTORY: As above. SURGICAL HISTORY: Hernia surgery., Hip surgery, right elbow surgery. FAMILY HISTORY: Hypertension. PERSONAL AND SOCIAL HISTORY: Past tobacco abuse. Ongoing alcohol abuse. D isabled. Allergies Allergy/AdvReac Type Severity Reaction Status Date / Time hydralazine Allergy Intermediate rapid drop Verified 10/23/21 21:21 in BP/Vomiting Penicillins AdvReac Mild TIRED Verified 10/23/21 21:21 Home Medications Medication Instructions Recorded Confirmed Type [id number] 250 1 tab PO BID PRN 10/23/21 10/23/21 History mg-250 mg-65 mg tablet (Excedrin Extra Strength) Past Med/Surg History Medical History Adult failure to thrive Alcohol use disorder Ambulatory dysfunction Anemia Anxiety Aortic root dilation Ataxia Bunion of unspecified foot Dementia DTs (delirium tremens) Esophageal tear Flat foot, acquired Frequent falls Generalized atherosclerosis Generalized weakness Hammer toe, acquired unspecified Hearing deficit Hereditary and idiopathic neuropathy, unspecified History of COVID-19 ? 07/17/20 per records History of esophageal dilatation last done 04/16/21 @ [facility] History of esophageal stricture Hx of fracture of hip Hypertension Hypokalemia Hypomagnesemia senior living resident [facility] 2500 cc fluid daily restriction was noted in records Sensorineural hearing loss (SNHL) of both ears Subgaleal hemorrhage Surgical History History of esophagogastroduodenoscopy (EGD) (~04/16/21) History of hip surgery s/p fall and fx Family History Other Cancer Hypertension Denies family history of Myocardial infarction Stroke Social History Smoking Status: Never smoker Tobacco Type: Cigarettes Second Hand Exposure: No; Hx Alcohol Use: Yes Alcohol type: beer Alcohol Intake Frequency Comment: 7-10 beers a day, uncertain which kind of beer Hx Substance Use: No Preferred Language: Chinese Communication Ability: Effective Visual Impairment: No Limitations Hearing Ability: Hard of Hearing Wire Chief Required: No Beliefs That Will Affect Care: None marital status: Single Current Living Situation: Other Current Living Situation Comment: [address] Feels Safe at Home: No Is there a partner from a previous relationship who is making you feel unsafe now?: No Assistive Devices: Cane Review of Systems Review of Systems: As per HPI, all 10 systems reviewed, all other ROS negative Physical Exam Physical Exam: GENERAL: uncomfortable, hard of hearing, no respiratory distress SKIN: Pallor, warm HEENT: Partial alopecia, bespectacled, pale palpebral conjunctivae, no ptosis, dry buccal mucosa NECK : Supple, no tenderness CHEST : CTA, no tenderness HEART : RRR, no obvious murmurs ABDOMEN: Some distention, nontender EXTREMITIES : Tender right elbow swelling, no LE swelling/tenderness NEUROLOGIC : Coherent, no facial asymmetry, hard of hearing, tremulous, gait and stance not assessed Results & Data Results & Data ([facility]) Vital Signs (Past 12 Hours) Vital Signs Temp Pulse Pulse Resp BP BP Pulse Ox 10/23/21 23:42 96 H 18 175/108 H 97 10/23/21 23:00 90 16 170/99 H 95 10/23/21 20:22 36.8 C 105 H 20 183/106 H 97 Laboratory Results Laboratory Results WBC 7.70 K/uL (4.8-10.8) 10/23/21 21:15 RBC 4.14 M/uL (4.7-6.1) L 10/23/21 21:15 Hgb 12.5 g/dL (14.0-18.0) L 10/23/21 21:15 Hct 37.5 % (42-52) L 10/23/21 21:15 MCV 90.6 fL (80-100) 10/23/21 21:15 MCH 30.2 pg (25-34) 10/23/21 21:15 MCHC 33.3 g/dL (32-36) 10/23/21 21:15 RDW Std Deviation 49.9 fL (36.4-46.3) H 10/23/21 21:15 RDW Coeff of Luis 15.1 % (11.5-14.5) H 10/23/21 21:15 Plt Count 198 K/uL (130-400) 10/23/21 21:15 MPV 9.0 fL (7.4-10.4) 10/23/21 21:15 Immature Gran % (Auto) 0.1 % 10/23/21 21:15 Neut % (Auto) 77.4 % 10/23/21 21:15 Lymph % (Auto) 11.4 % 10/23/21 21:15 Dubois % (Auto) 10.9 % 10/23/21 21:15 Eos % (Auto) 0.1 % 10/23/21 21:15 Baso % (Auto) 0.1 % 10/23/21 21:15 Neut # (Auto) 5.95 K/uL (1.4-6.5) 10/23/21 21:15 Lymph # (Auto) 0.88 K/uL (1.2-3.4) L 10/23/21 21:15 Dubois # (Auto) 0.84 K/uL (0.11-0.59) H 10/23/21 21:15 Eos # (Auto) 0.01 K/uL (0-0.5) 10/23/21 21:15 Baso # (Auto) 0.01 K/uL (0-0.2) 10/23/21 21:15 Immature Gran # (Auto) 0.01 K/uL (0.00-0.02) 10/23/21 21:15 Sodium 135 mmol/L (136-145) L 10/23/21 21:15 Potassium 3.5 mmol/L (3.5-5.1) 10/23/21 21:15 Chloride 99 mmol/L (98-107) 10/23/21 21:15 Carbon Dioxide 19 mmol/L (21-32) L 10/23/21 21:15 Anion Gap 17 (3-11) H 10/23/21 21:15 BUN 6 mg/dl (6-23) 10/23/21 21:15 Creatinine 0.63 mg/dl (0.6-1.4) 10/23/21 21:15 Est Cr Clr Drug Dosing 133.9 ml/min 10/23/21 21:15 Est GFR ( Amer) 126.8 ml/min 10/23/21 21:15 Est GFR (Non-Af Amer) 109.4 ml/min 10/23/21 21:15 BUN/Creatinine Ratio 9.5 (10-20) L 10/23/21 21:15 Glucose 96 mg/dl (70-99(Fasting)) 10/23/21 21:15 Lactate 1.6 mmol/L (0.4-2.0) 10/23/21 21:39 Calcium 8.8 mg/dl (8.5-10.1) 10/23/21 21:15 Magnesium 1.6 mg/dl (1.7-2.4) L 10/23/21 21:15 Total Bilirubin 0.8 mg/dl (0.2-1.0) 10/23/21 21:15 AST 36 U/L (13-39) 10/23/21 21:15 ALT 11 U/L (7-52) 10/23/21 21:15 Alkaline Phosphatase 101 U/L (34-104) 10/23/21 21:15 Total Creatine Kinase 621 U/L (30-223) H 10/23/21 21:15 Troponin I < 0.03 ng/ml (0-0.04) 10/23/21 21:15 Total Protein 7.6 gm/dl (6.0-8.3) 10/23/21 21:15 Albumin 4.3 gm/dl (3.4-5.0) 10/23/21 21:15 Globulin 3.3 gm/dl (2.5-4.0) 10/23/21 21:15 Albumin/Globulin Ratio 1.3 (0.9-2) 10/23/21 21:15 TSH 0.861 uIu/ml (0.300-4.500) 10/23/21 21:15 Urine Color Yellow 10/23/21 21:15 Urine Appearance Clear (Clear) 10/23/21 21:15 Urine pH 5.5 (4.5-7.5) 10/23/21 21:15 Ur Specific Barnum 1.016 (1.000-1.030) 10/23/21 21:15 Urine Protein 2+ (Negative) H 10/23/21 21:15 Urine Glucose (UA) Negative (Negative) 10/23/21 21:15 Urine Ketones 3+ (Negative) H 10/23/21 21:15 Urine Blood 2+ (Negative) H 10/23/21 21:15 Urine Nitrite Negative (Negative) 10/23/21 21:15 Urine Bilirubin Negative (Negative) 10/23/21 21:15 Urine Urobilinogen Negative (Negative) 10/23/21 21:15 Ur Leukocyte Esterase Negative (Negative) 10/23/21 21:15 Urine WBC (Auto) 1-5 /hpf (0-5) 10/23/21 21:15 Urine RBC (Auto) 0-4 /hpf (0-4) 10/23/21 21:15 U Hyaline Cast (Auto) 1-5 /lpf (0-5) 10/23/21 21:15 U Epithel Cells (Auto) 5-10 /lpf (0-5) H 10/23/21 21:15 Urine Bacteria (Auto) Negative (Negative) 10/23/21 21:15 Ethyl Alcohol mg/dL < 10.0 mg/dl (<10.0) 10/23/21 21:39 SARS-CoV-2, RNA, NAAT NEGATIVE (NEGATIVE) 10/24/21 01:[address] 10/23/21 21:04 CT head/brain wo con CLINICAL HISTORY: weakness, fall Technique: Contiguous axial CT images of the head were acquired from the base of the skull to the vertex without intravenous contrast administration. Images were viewed in brain, subdural and bone windows. Automated dose lowering techniques and/or adjustment according to patient size were utilized for this exam. Comparison: None available at the time of this dictation. Findings: Areas of decreased attenuation are present in the periventricular and subcortical white matter bilaterally consistent with small vessel ischemic disease. Generalized cerebral atrophy with commensurate enlargement of the ventricles, sulci, and cisterns is also present. There is no acute intracranial hemorrhage or evidence of acute territorial infarction. No shift of the midline structures, mass effect, or extra-axial abnormalities are shown. Atherosclerotic calcifications are present in the intracranial segments of the internal carotid arteries. Imaged portions of the paranasal sinuses and mastoid air cells are clear. The orbits appear normal. There are no acute fractures of the calvaria or scalp swelling. Impression: No acute intracranial hemorrhage, no evidence of acute territorial infarction or other acute intracranial disease process. ACT 112: Negative or not required by law. Electronically signed by: Louie Chavarria M.D. 10/23/2021 9:54 PM Diagnostic Findings Chest x-ray as per my interpretation atelectasis EKG as per my interpretation: Rate 90, NSR, normal axis, septal infarct, T wave abnormalities septal leads
[2021-10-24] MEDS ORDERED: THIAMINE HCL 100 MG in SYRINGE 9 ML IV STA (00:30)
[2021-10-24] MEDS ORDERED: GABAPENTIN 600 MG TAB PO STA (00:49)
[2021-10-24] MEDS ORDERED: oxyCODONE HCL IR 5 MG TAB (IMMEDIATE RELEASE) PO STA (00:49)
[2021-10-24] MEDS ORDERED: amLODIPine BESYLATE 5 MG TAB PO STA (00:51)
[2021-10-24] MEDS ORDERED: GABAPENTIN 1200MG ALCOHOL WITHDRAWAL LOAD PO STA (00:56)
[2021-10-24] MEDS ORDERED: LACTATED RINGER'S 1,000 ML IV STA (01:00)
[2021-10-24] MEDS ORDERED: PROMETHAZINE HCL 12.5 MG in SODIUM CHLORIDE 0.9% 50 ML IV PRN (02:37)
[2021-10-24] MEDS ORDERED: ATIVAN IV ALCOHOL WITHDRAWL IV PRN (02:37)
[2021-10-24] MEDS ORDERED: LORazepam 2 MG/1 ML VIAL IV PRN ×3 (02:37)
[2021-10-24] MEDS: ACETAMINOPHEN 325 MG TAB PO PRN ×3 (05:28→20:09)
--- NOTE | 2021-10-24 07:27 | XRay Report ---
XR elbow RT min 3V routine CLINICAL HISTORY: Right elbow pain. Fall. COMPARISON STUDY: Right elbow 09/06/2021. FINDINGS: Interval internal fixation of a healing/healed olecranon fracture with cortical plate and s crews. The hardware appears intact. There is posterior soft tissue swelling within the elbow with ass ociated elbow effusion. No definite acute fracture or dislocation within the elbow. No abnormal perip rosthetic lucency. IMPRESSION: 1. Status post internal fixation of olecranon fracture with cortical plate and screws. The hardware a ppears intact. 2. There is posterior soft tissue swelling and a joint effusion. This is nonspecific in the postopera tive status. Clinical correlation recommended to exclude the possibility of an infection. 3. No definite acute fracture or dislocation within the right elbow. ACT 112: Negative or not required by law. Electronically signed by: Jigar Cassidy M.D. 10/24/2021 7:26 AM
--- NOTE | 2021-10-24 07:34 | XRay Report ---
SINGLE VIEW CHEST CLINICAL HISTORY: Generalized weakness. FINDINGS: An AP, portable, upright chest radiograph is compared to study dated 09/06/2021 and correlat ed with chest CT dated 12/11/2018. The heart is enlarged noting atherosclerotic calcification of the t horacic aorta. The pulmonary vasculature is noncongested. Enlargement of the central pulmonary arteri es suggests pulmonary artery hypertension. There is chronic elevation of the left hemidiaphragm. Emph ysema and chronic interstitial thickening is similar to previous. There is bibasilar scarring/atelect asis. No airspace consolidation or large pleural effusion is identified. No pneumothorax is seen. The skeletal structures are osteopenic. There are healed left-sided rib fractures. IMPRESSION: Cardiomegaly and emphysema with no acute cardiopulmonary abnormality identified. ACT 112: Negative or not required by law. Electronically signed by: Froy Lau M.D. 10/24/2021 7:32 AM
[2021-10-24] MEDS: amLODIPine BESYLATE 5 MG TAB PO SCH (07:48)
[2021-10-24] MEDS: FOLIC ACID 1 MG TAB PO SCH (07:49)
[2021-10-24] MEDS: MULTIVITAMIN TAB PO SCH (07:49)
[2021-10-24] MEDS: GABAPENTIN 600 MG TAB PO SCH ×3 (07:49→21:41)
[2021-10-24] MEDS: ENOXAPARIN INJ 40 MG/0.4 ML SYR SQ SCH (07:49)
[2021-10-24 08:25] LABS: Basophils # (auto) 0.01 K/uL (0-0.2); Basophils % (auto) 0.2 %; Eosinophils # (auto) 0.05 K/uL (0-0.5); Eosinophils % (auto) 0.8 %; Hematocrit (blood only) 36.7 % (42-52); Hemoglobin 12.6 g/dL (14.0-18.0); Lymphocytes # (auto) 1.86 K/uL (1.2-3.4); Lymphocytes % (auto) 29.4 %; Mean Corpuscular Hemoglobin 30.3 pg (25-34); Mean Corpuscular Hgb Conc 34.3 g/dL (32-36); Mean Corpuscular Volume 88.2 fL (80-100); Mean Platelet Volume 8.8 fL (7.4-10.4); Monocytes # (auto) 0.96 K/uL (0.11-0.59); Monocytes % (auto) 15.2 %; Neutrophils # (auto) 3.44 K/uL (1.4-6.5); Neutrophils % (auto) 54.4 %; Platelet Count 196 K/uL (130-400); RDW Coefficient of Variation 14.9 % (11.5-14.5); RDW Standard Deviation 48.2 fL (36.4-46.3); Red Blood Count 4.16 M/uL (4.7-6.1); White Blood Count 6.32 K/uL (4.8-10.8)
[2021-10-24 08:50] LABS: BUN Creatinine Ratio 9.3 (10-20); Calcium 8.5 mg/dl (8.5-10.1); Creatinine Clr Calc Pharmacy 145.4 ml/min; Est GFR (African American) 135.1 ml/min; Est GFR (Non-African American) 116.5 ml/min; Magnesium 2.1 mg/dl (1.7-2.4); Potassium 2.9 mmol/L (3.5-5.1)
[2021-10-24] MEDS ORDERED: POTASSIUM CHLORIDE CRTAB 20 MEQ TABCR PO STA (09:25)
[2021-10-24] MEDS: POTASSIUM CHLORIDE / WTR 10 MEQ/100 ML PLCT IV SCH ×4 (10:03→13:36)
--- NOTE | 2021-10-24 11:08 | Electrocardiogram Report ---
Test Reason : Blood Pressure : / mmHG Vent. Rate : 090 BPM Atrial Rate : 091 BPM P-R Int : 182 ms QRS Dur : 088 ms QT Int : 376 ms P-R-T Axes : 068 027 072 degrees QTc Int : 459 ms Normal sinus rhythm Septal infarct (cited on or before 23-OCT-2021) Abnormal ECG When compared with ECG of 06-SEP-2021 14:23, Premature atrial complexes are no longer Present Confirmed by Rajendra Rueda ([id number]) on 10/24/2021 11:08:21 AM Referred By: REFERRED SELF Confirmed By:Rajendra Rueda
[2021-10-24] MEDS ORDERED: POTASSIUM CHLORIDE 20 MEQ/15 ML UDC PO ONE (13:00)
--- NOTE | 2021-10-24 15:05 | Hospitalist Progress Note ---
Date of Service October 24, 2021 Assessment & Plan (1) Weakness: (2) Asymptomatic hypertensive urgency: Plan: 56yo M with PMH of chronic alcoholism, hypertension, chronic hyponatremia (non compliance w/ fluid restriction), history of ambulatory dysfunction, history of esophageal stenosis status post dilation who presented 4/10 after falls and was found to have hypertensive urgency. He is being managed for the following: #. Ambulatory dysfunction #. Recurrent Falls : CT head at admission wnl. #. 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 Uncontrolled HTN Pt reports not taking amlodipine at home; also abuses alcohol Resume home amlodipine, prn meds c/t monitor. #. H/o recent Fracture of olecranon process, right, closed: Recent confinement September 06 to September 30, 2021 for right olecranon fracture S/P Right open reduction internal fixation olecranon fracture performed by Dr. Martinez on 09/09/21 Pt hit his rt elbow during fall prior to this admission Admitting imaging of rt elbow: no acute finding; post operative changes noted. continue to monitor. #. Chronic hyponatremia: Chronic hyponatremia, continue to monitor, patient noncompliant with fluid restriction and does not want fluid restriction while in hospital. Disposition: PT/OT, CM to assist with DC planning DVT prophylaxis: Lovenox Full code Admission and Anticipated Discharge Date Admission Date: October 24, 2021 Subjective Patient seen and examined at bedside as a follow-up of alcohol abuse/dependence and ambulatory dysfunction and recurrent falls. Patient was sitting up in chair, on room air, NAD, no new acute events overnight. Patient remains stressful about why he cannot walk. Patient has been made aware multiple times that his walking has been affected due to his chronic alcohol abuse, patient denies any headache/chills/chest pain/palpitations/belly pain/other review of symptoms. Patient reports eating okay. Physical Exam Physical Exam: GENERAL: Alert and oriented x3. NAD, on RA. HEENT: No pallor, no icterus. Pupils equal, round and reactive to light. Oral mucosa moist. NECK: No JVD, no neck masses. HEART: S1 and S2 heard. Regular rate and rhythm. No murmur, no gallop. RESPIRATORY SYSTEM: Normal AP diameter. No accessory muscle use. No wheezing, no crackles. ABDOMEN: Soft, bowel sounds present, nontender, no distention. CENTRAL NERVOUS SYSTEM: No facial droop. Speech is clear. Obeys simple commands. Moves extremities. EXTREMITIES: No edema, no erythema seen. Scratch chapa in b/l thighs Results & Data Results & Data ([facility]) Vital Signs (Past 12 Hours) Vital Signs Temp Pulse Pulse Resp BP Pulse Ox 10/24/21 14:47 37.0 C 98 H 20 161/98 H 99 10/24/21 09:38 79 10/24/21 08:07 36.7 C 92 H 20 151/91 H 96
[2021-10-24] MEDS: LACTATED RINGER'S 1,000 ML IV SCH (15:10)
[2021-10-25] MEDS: ACETAMINOPHEN 325 MG TAB PO PRN ×4 (03:18→22:23)
[2021-10-25] MEDS: LACTATED RINGER'S 1,000 ML IV SCH (03:21)
[2021-10-25] MEDS: GABAPENTIN 600 MG TAB PO SCH ×2 (05:50→13:54)
[2021-10-25] MEDS: amLODIPine BESYLATE 5 MG TAB PO SCH (07:53)
[2021-10-25] MEDS: ENOXAPARIN INJ 40 MG/0.4 ML SYR SQ SCH (07:53)
[2021-10-25] MEDS: FOLIC ACID 1 MG TAB PO SCH (07:54)
[2021-10-25] MEDS: THIAMINE HCL 100 MG TAB PO SCH (07:54)
[2021-10-25] MEDS: MULTIVITAMIN TAB PO SCH (07:54)
[2021-10-25 08:09] LABS: Hematocrit (blood only) 41.5 % (42-52); Mean Corpuscular Hemoglobin 30.8 pg (25-34); Mean Corpuscular Hgb Conc 33.7 g/dL (32-36); Mean Corpuscular Volume 91.4 fL (80-100); Mean Platelet Volume 9.7 fL (7.4-10.4); Platelet Count 180 K/uL (130-400); RDW Coefficient of Variation 15.1 % (11.5-14.5); RDW Standard Deviation 50.3 fL (36.4-46.3); Red Blood Count 4.54 M/uL (4.7-6.1); White Blood Count 8.77 K/uL (4.8-10.8)
[2021-10-25 08:40] LABS: Albumin Level 4.1 gm/dl (3.4-5.0); BUN Creatinine Ratio 14.1 (10-20); Bilirubin Direct 0.2 mg/dl (0-0.2); Bilirubin,Total 1.1 mg/dl (0.2-1.0); Creatinine Clr Calc Pharmacy 114.3 ml/min; Est GFR (African American) 120.7 ml/min; Est GFR (Non-African American) 104.2 ml/min; Magnesium 1.9 mg/dl (1.7-2.4); Phosphorus 2.5 mg/dl (2.5-4.9); Potassium 3.5 mmol/L (3.5-5.1); Total Protein 7.2 gm/dl (6.0-8.3)
[2021-10-25] MEDS ORDERED: POTASSIUM CHLORIDE CRTAB 20 MEQ TABCR PO STA (09:16)
--- NOTE | 2021-10-25 15:12 | Hospitalist Progress Note ---
Date of Service October 25, 2021 Assessment & Plan (1) Weakness: (2) Asymptomatic hypertensive urgency: Plan: 56yo M with PMH of chronic alcoholism, hypertension, chronic hyponatremia (non compliance w/ fluid restriction), history of ambulatory dysfunction, history of esophageal stenosis status post dilation who presented 4/10 after falls and was found to have hypertensive urgency. He is being managed for the following: #. Ambulatory dysfunction #. Recurrent Falls : CT head at admission wnl. #. 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 #. Uncontrolled HTN Pt reports not taking amlodipine at home; also abuses alcohol Resume home amlodipine, prn meds c/t monitor. Fairly under control. #. H/o recent Fracture of olecranon process, right, closed: Recent confinement September 06 to September 30, 2021 for right olecranon fracture S/P Right open reduction internal fixation olecranon fracture performed by Dr. Martinez on 09/09/21 Pt hit his rt elbow during fall prior to this admission Admitting imaging of rt elbow: no acute finding; post operative changes noted. continue to monitor. If he has not followed up ortho as OP, will see if ortho can see him. #. Chronic hyponatremia: Chronic hyponatremia, continue to monitor, patient noncompliant with fluid restriction and does not want fluid restriction while in hospital. Disposition: PT/OT, CM to assist with DC planning DVT prophylaxis: Lovenox Full code Admission and Anticipated Discharge Date Admission Date: October 24, 2021 Subjective Patient seen and examined at bedside as a follow-up of alcohol abuse/dependence and ambulatory dysfunction and recurrent falls. Patient was sitting up in bed, on room air, NAD, no new acute events overnight. patient denies any headache/chills/chest pain/palpitations/belly pain/other review of symptoms. Patient reports eating okay. Physical Exam Physical Exam: GENERAL: Alert and oriented x3. NAD, on RA. HEENT: No pallor, no icterus. Pupils equal, round and reactive to light. Oral mucosa moist. NECK: No JVD, no neck masses. HEART: S1 and S2 heard. Regular rate and rhythm. No murmur, no gallop. RESPIRATORY SYSTEM: Normal AP diameter. No accessory muscle use. No wheezing, no crackles. ABDOMEN: Soft, bowel sounds present, nontender, no distention. CENTRAL NERVOUS SYSTEM: No facial droop. Speech is clear. Obeys simple commands. Moves extremities. EXTREMITIES: No edema, no erythema seen. Scratch chapa in b/l thighs, no S/S of infeciton noted. Results & Data Results & Data ([facility]) Vital Signs (Past 12 Hours) Vital Signs Temp Pulse Pulse Resp BP BP Pulse Ox 10/25/21 11:58 36.4 C L 107 H 18 157/95 H 95 10/25/21 08:24 36.6 C 107 H 20 167/96 H 98 10/25/21 07:00 93 H 10/25/21 03:42 36.6 C 82 18 133/84 93
[2021-10-26] MEDS: GABAPENTIN 600 MG TAB PO SCH ×2 (01:53→12:27)
[2021-10-26] MEDS: amLODIPine BESYLATE 5 MG TAB PO SCH (08:55)
[2021-10-26] MEDS: ACETAMINOPHEN 325 MG TAB PO PRN ×3 (08:55→23:38)
[2021-10-26] MEDS: ENOXAPARIN INJ 40 MG/0.4 ML SYR SQ SCH (08:56)
[2021-10-26] MEDS: MULTIVITAMIN TAB PO SCH (08:56)
[2021-10-26] MEDS: THIAMINE HCL 100 MG TAB PO SCH (08:56)
[2021-10-26] MEDS: FOLIC ACID 1 MG TAB PO SCH (08:56)
[2021-10-26 09:03] LABS: Hematocrit (blood only) 37.4 % (42-52); Hemoglobin 12.5 g/dL (14.0-18.0); Mean Corpuscular Hemoglobin 30.2 pg (25-34); Mean Corpuscular Hgb Conc 33.4 g/dL (32-36); Mean Corpuscular Volume 90.3 fL (80-100); Mean Platelet Volume 9.9 fL (7.4-10.4); Platelet Count 151 K/uL (130-400); RDW Coefficient of Variation 14.9 % (11.5-14.5); RDW Standard Deviation 48.5 fL (36.4-46.3); Red Blood Count 4.14 M/uL (4.7-6.1); White Blood Count 6.37 K/uL (4.8-10.8)
[2021-10-26 10:18] LABS: BUN Creatinine Ratio 12.5 (10-20); Calcium 8.5 mg/dl (8.5-10.1); Creatinine Clr Calc Pharmacy 169.6 ml/min; Est GFR (African American) 141.8 ml/min; Est GFR (Non-African American) 122.3 ml/min; Magnesium 1.8 mg/dl (1.7-2.4); Phosphorus 3.6 mg/dl (2.5-4.9); Potassium 3.4 mmol/L (3.5-5.1)
[2021-10-26] MEDS ORDERED: POTASSIUM CHLORIDE CRTAB 20 MEQ TABCR PO STA (11:35)
[2021-10-26] MEDS: MAGNESIUM SULFATE / D5W 1 GM/100 ML BAG IV SCH ×2 (12:26→14:16)
--- NOTE | 2021-10-26 12:26 | Hospitalist Progress Note ---
Date of Service October 26, 2021 Assessment & Plan (1) Weakness: (2) Asymptomatic hypertensive urgency: Plan: 56yo M with PMH of chronic alcoholism, hypertension, chronic hyponatremia (non compliance w/ fluid restriction), history of ambulatory dysfunction, history of esophageal stenosis status post dilation who presented 4/10 after falls and was found to have hypertensive urgency. He is being managed for the following: #. Ambulatory dysfunction #. Recurrent Falls : CT head at admission wnl. #. 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 #. Likely viral AGE Pt had multiple loose stools overnight, pt feeling weak and nauseous in the morning, able to eat C diff negative. will put in gentle hydration, replace lytes, pedialyte by bedside. f/u electrolytes tomorrow. Zofran for N/V. #. Uncontrolled HTN Pt reports not taking amlodipine at home; also abuses alcohol Resume home amlodipine, prn meds c/t monitor. Fairly under control. #. H/o recent Fracture of olecranon process, right, closed: Recent confinement September 06 to September 30, 2021 for right olecranon fracture S/P Right open reduction internal fixation olecranon fracture performed by Dr. Martinez on 09/09/21 Pt hit his rt elbow during fall prior to this admission Admitting imaging of rt elbow: no acute finding; post operative changes noted. continue to monitor. f/u ortho as OP. #. Chronic hyponatremia: Chronic hyponatremia, continue to monitor, patient noncompliant with fluid restriction and does not want fluid restriction while in hospital. Disposition: PT/OT, CM to assist with DC planning. Likely DC gabe if he improves with his diarrhea/weakness. F/u on electrolytes. DVT prophylaxis: Lovenox Full code Admission and Anticipated Discharge Date Admission Date: October 24, 2021 Subjective Patient seen and examined at bedside as a follow-up of alcohol abuse/dependence and ambulatory dysfunction and recurrent falls. Patient was lying in bed, on room air, feeling weak and nauseous, overnight had multiple diarrhea (C diff was sent and negative). patient denies any headache/chills/chest pain/palpitations/belly pain/other review of symptoms. Patient reports eating okay. Will order pedialyte, gentle iv fluid hydration and replace electrolytes. Physical Exam Physical Exam: GENERAL: Alert and oriented x3. NAD, on RA. HEENT: No pallor, no icterus. Pupils equal, round and reactive to light. Oral mucosa moist. NECK: No JVD, no neck masses. HEART: S1 and S2 heard. Regular rate and rhythm. No murmur, no gallop. RESPIRATORY SYSTEM: Normal AP diameter. No accessory muscle use. No wheezing, no crackles. ABDOMEN: Soft, bowel sounds present, nontender, no distention. CENTRAL NERVOUS SYSTEM: No facial droop. Speech is clear. Obeys simple commands. Moves extremities. EXTREMITIES: No edema, no erythema seen. Scratch chapa in b/l thighs, no S/S of infeciton noted. Results & Data Results & Data ([facility]) Vital Signs (Past 12 Hours) Vital Signs Temp Pulse Pulse Resp BP Pulse Ox 10/26/21 11:09 36.3 C L 96 H 20 155/95 H 97 10/26/21 07:05 36.4 C L 80 18 152/84 H 95 10/26/21 07:00 69 10/26/21 04:45 36.4 C L 79 16 146/82 H 96
[2021-10-26] MEDS ORDERED: MAGNESIUM SULFATE / D5W 1 GM/100 ML BAG IV ONE (12:30)
[2021-10-26] MEDS: ONDANSETRON INJ 2 MG/ML 2 ML VIAL IV PRN (12:39)
[2021-10-26] MEDS: SODIUM CHLORIDE 0.9% 1000ML 1,000 ML IV SCH (12:40)
[2021-10-27] MEDS ORDERED: LOPERAMIDE HCL 2 MG CAP PO STA (00:06)
[2021-10-27] MEDS: ONDANSETRON INJ 2 MG/ML 2 ML VIAL IV PRN (00:14)
[2021-10-27] MEDS: SODIUM CHLORIDE 0.9% 1000ML 1,000 ML IV SCH (00:34)
[2021-10-27] MEDS: ACETAMINOPHEN 325 MG TAB PO PRN ×3 (05:42→19:36)
[2021-10-27 08:00] LABS: Hematocrit (blood only) 34.6 % (42-52); Hemoglobin 11.6 g/dL (14.0-18.0); Mean Corpuscular Hemoglobin 30.6 pg (25-34); Mean Corpuscular Hgb Conc 33.5 g/dL (32-36); Mean Corpuscular Volume 91.3 fL (80-100); Platelet Count 140 K/uL (130-400); RDW Coefficient of Variation 14.9 % (11.5-14.5); RDW Standard Deviation 49.6 fL (36.4-46.3); Red Blood Count 3.79 M/uL (4.7-6.1); White Blood Count 7.64 K/uL (4.8-10.8)
[2021-10-27 08:10] LABS: BUN Creatinine Ratio 10.2 (10-20); Calcium 8.1 mg/dl (8.5-10.1); Creatinine Clr Calc Pharmacy 165.9 ml/min; Est GFR (African American) 140.6 ml/min; Est GFR (Non-African American) 121.3 ml/min; Magnesium 1.9 mg/dl (1.7-2.4); Potassium 3.5 mmol/L (3.5-5.1)
[2021-10-27] MEDS: THIAMINE HCL 100 MG TAB PO SCH (08:45)
[2021-10-27] MEDS: FOLIC ACID 1 MG TAB PO SCH (08:45)
[2021-10-27] MEDS: ENOXAPARIN INJ 40 MG/0.4 ML SYR SQ SCH (08:45)
[2021-10-27] MEDS: POTASSIUM CHLORIDE CRTAB 20 MEQ TABCR PO SCH (08:45)
[2021-10-27] MEDS: amLODIPine BESYLATE 5 MG TAB PO SCH (08:45)
[2021-10-27] MEDS: MULTIVITAMIN TAB PO SCH (08:46)
[2021-10-27] MEDS ORDERED: POTASSIUM CHLORIDE CRTAB 20 MEQ TABCR PO STA (08:54)
--- NOTE | 2021-10-27 09:00 | Hospitalist Progress Note ---
Date of Service October 27, 2021 Assessment & Plan (1) Weakness: (2) Asymptomatic hypertensive urgency: Plan: 56 yo M with PMH of chronic alcoholism, hypertension, chronic hyponatremia (non compliance w/ fluid restriction), history of ambulatory dysfunction, history of esophageal stenosis status post dilation who presented /10 after falls and was found to have hypertensive urgency. He is being managed for the following: #. Ambulatory dysfunction #. Recurrent Falls : CT head at admission wnl. #. 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 #. Likely viral AGE Pt had multiple loose stools overnight, pt feeling weak and nauseous in the morning, able to eat C diff negative. gentle hydration, replace lytes, pedialyte by bedside. f/u electrolytes. Zofran for N/V. #. Uncontrolled HTN Pt reports not taking amlodipine at home; also abuses alcohol Resume home amlodipine, prn meds c/t monitor. Fairly under control. #. H/o recent Fracture of olecranon process, right, closed: Recent confinement September 06 to September 30, 2021 for right olecranon fracture S/P Right open reduction internal fixation olecranon fracture performed by Dr. Martinez on 09/09/21 Pt hit his rt elbow during fall prior to this admission Admitting imaging of rt elbow: no acute finding; post operative changes noted. continue to monitor. f/u ortho as OP. #. Chronic hyponatremia: Chronic hyponatremia, continue to monitor, patient noncompliant with fluid restriction and does not want fluid restriction while in hospital. Disposition: PT/OT, CM to assist with DC planning. Likely DC gabe if he improves with his diarrhea/weakness. F/u on electrolytes. DVT prophylaxis: Lovenox Full code Admission and Anticipated Discharge Date Admission Date: October 24, 2021 Subjective Patient seen in follow-up of alcohol abuse/dependence and ambulatory dysfunction and recurrent falls. Patient is lying in bed in NAD Continues to have loose stools and feeling weak (C diff was sent and negative). denies fevers, chills, chest pain, shortness of breath, no pain Review of Systems Review of Systems: All systems reviewed & are unremarkable except as noted in Subjective Physical Exam Physical Exam: GENERAL: Alert and oriented x3. NAD, on RA. HEENT: NC/AT. No pallor, no icterus. Pupils equal, round and reactive to light. Oral mucosa moist. NECK: No JVD, no neck masses. HEART: S1 and S2 heard. Regular rate and rhythm. No murmur, no gallop. RESPIRATORY: Normal AP diameter. No accessory muscle use. No wheezing, no crackles. ABDOMEN: Soft, bowel sounds present, nontender, no distention. NEURO: No facial droop. Speech is clear. Obeys simple commands. Moves extremities. EXTREMITIES: No edema, no erythema seen. Scratch chapa in b/l thighs, no S/S of infection noted. Results & Data Results & Data ([facility]) Vital Signs (Past 12 Hours) Vital Signs Temp Pulse Pulse Resp BP Pulse Ox 10/27/21 07:31 36.6 C 74 16 157/86 H 94 10/27/21 07:00 66 10/27/21 03:42 36.9 C 78 20 155/84 H 95 10/26/21 23:47 36.4 C L 79 20 173/94 H 99 10/26/21 22:18 84 Laboratory Results 10/27/21 10/27/21 10/26/21 Range/Units 07:37 07:37 08:21 WBC 7.64 (4.8-10.8) K/uL RBC 3.79 L (4.7-6.1) M/uL Hgb 11.6 L (14.0-18.0) g/dL Hct 34.6 L (42-52) % MCV 91.3 (80-100) fL MCH 30.6 (25-34) pg MCHC 33.5 (32-36) g/dL RDW Std Deviation 49.6 H (36.4-46.3) fL RDW Coeff of Luis 14.9 H (11.5-14.5) % Plt Count 140 (130-400) K/uL MPV 9.0 (7.4-10.4) fL Sodium 136 138 (136-145) mmol/L Potassium 3.5 3.4 L (3.5-5.1) mmol/L Chloride 105 105 (98-107) mmol/L Carbon Dioxide 27 25 (21-32) mmol/L Anion Gap 4 8 (3-11) BUN 5 L 6 (6-23) mg/dl Creatinine 0.49 L 0.48 L (0.6-1.4) mg/dl Est Cr Clr Drug Dosing 165.9 169.6 ml/min Est GFR ( Amer) 140.6 141.8 ml/min Est GFR (Non-Af Amer) 121.3 122.3 ml/min BUN/Creatinine Ratio 10.2 12.5 (10-20) Glucose 97 91 (70-99(Fasting)) mg/dl Calcium 8.1 L 8.5 (8.5-10.1) mg/dl Phosphorus 3.6 D (2.5-4.9) mg/dl Magnesium 1.9 1.8 (1.7-2.4) mg/dl Total Creatine Kinase 161 (30-223) U/L 10/26/21 Range/Units 08:21 WBC 6.37 (4.8-10.8) K/uL RBC 4.14 L (4.7-6.1) M/uL Hgb 12.5 L (14.0-18.0) g/dL Hct 37.4 L (42-52) % MCV 90.3 (80-100) fL MCH 30.2 (25-34) pg MCHC 33.4 (32-36) g/dL RDW Std Deviation 48.5 H (36.4-46.3) fL RDW Coeff of Luis 14.9 H (11.5-14.5) % Plt Count 151 (130-400) K/uL MPV 9.9 (7.4-10.4) fL Sodium (136-145) mmol/L Potassium (3.5-5.1) mmol/L Chloride (98-107) mmol/L Carbon Dioxide (21-32) mmol/L Anion Gap (3-11) BUN (6-23) mg/dl Creatinine (0.6-1.4) mg/dl Est Cr Clr Drug Dosing ml/min Est GFR ( Amer) ml/min Est GFR (Non-Af Amer) ml/min BUN/Creatinine Ratio (10-20) Glucose (70-99(Fasting)) mg/dl Calcium (8.5-10.1) mg/dl Phosphorus (2.5-4.9) mg/dl Magnesium (1.7-2.4) mg/dl Total Creatine Kinase (30-223) U/L Medications Administered Current Inpatient Medications Acetaminophen (Acetaminophen 325 Mg Tab) 650 mg PO Q4H PRN PRN Reason: Pain or Fever Stop: 11/23/21 02:36 Last Admin: 10/27/21 05:42 Dose: 650 mg Documented by: Amlodipine Besylate (Amlodipine Besylate 5 Mg Tab) 5 mg PO [facility] Stop: 11/23/21 08:59 Last Admin: 10/27/21 08:45 Dose: 5 mg Documented by: Enoxaparin Sodium (Enoxaparin Inj 40 Mg/0.4 Ml Syr) 40 mg SQ [facility] Stop: 11/23/21 08:59 Last Admin: 10/27/21 08:45 Dose: 40 mg Documented by: Folic Acid (Folic Acid 1 Mg Tab) 1 mg PO [facility] Stop: 11/23/21 08:59 Last Admin: 10/27/21 08:45 Dose: 1 mg Documented by: Gabapentin (Gabapentin 600 Mg Tab) 600 mg PO Q24H [facility] Stop: 10/27/21 14:01 Promethazine HCl 12.5 mg/ (Sodium Chloride) 50.5 mls @ 202 mls/hr IV Q6H PRN PRN Reason: Nausea And Vomiting Stop: 11/23/21 02:36 Sodium Chloride (Nss 1000ml) 1,000 mls @ 80 mls/hr IV .[id number] [facility] Stop: 10/27/21 13:14 Last Admin: 10/27/21 00:34 Dose: 80 mls/hr Documented by: Lorazepam (Lorazepam 2 Mg/1 Ml Vial) 1 mg IV UD PRN; Protocol PRN Reason: EtOH Withdrawl AWSS Score 6,7 Stop: 11/23/21 02:36 Last Admin: 10/24/21 07:48 Dose: 1 mg Documented by: Lorazepam (Lorazepam 2 Mg/1 Ml Vial) 2 mg IV UD PRN; Protocol PRN Reason: EtOH Withdrawl AWSS Score 8,9 Stop: 11/23/21 02:36 Lorazepam (Lorazepam 2 Mg/1 Ml Vial) 3 mg IV ONCE PRN; Protocol PRN Reason: EtOH Withdrawl AWSS Score >=10 Stop: 11/23/21 02:36 Multivitamins (Multivitamin Tab) 1 tab PO [facility] Stop: 11/23/21 08:59 Last Admin: 10/27/21 08:46 Dose: 1 tab Documented by: Ondansetron HCl (Ondansetron Inj 2 Mg/Ml 2 Ml Vial) 4 mg IV Q6H PRN PRN Reason: Nausea And Vomiting Stop: 11/25/21 12:15 Last Admin: 10/27/21 00:14 Dose: 4 mg Documented by: Potassium Chloride (Potassium Chloride Crtab 20 Meq Tabcr) 20 meq PO [facility] Stop: 11/26/21 08:59 Last Admin: 10/27/21 08:45 Dose: 20 meq Documented by: Thiamine HCl (Thiamine Hcl 100 Mg Tab) 100 mg PO [facility] Stop: 11/24/21 08:59 Last Admin: 10/27/21 08:45 Dose: 100 mg Documented by:
[2021-10-27] MEDS ORDERED: GABAPENTIN 600 MG TAB PO SCH (14:00)
[2021-10-28] MEDS: ACETAMINOPHEN 325 MG TAB PO PRN ×4 (00:38→20:16)
[2021-10-28 07:35] LABS: BUN Creatinine Ratio 9.6 (10-20); Calcium 8.7 mg/dl (8.5-10.1); Creatinine Clr Calc Pharmacy 159.2 ml/min; Est GFR (African American) 137.2 ml/min; Est GFR (Non-African American) 118.4 ml/min; Magnesium 1.8 mg/dl (1.7-2.4); Phosphorus 3.3 mg/dl (2.5-4.9); Potassium 3.7 mmol/L (3.5-5.1)
[2021-10-28] MEDS: THIAMINE HCL 100 MG TAB PO SCH (08:35)
[2021-10-28] MEDS: MULTIVITAMIN TAB PO SCH (08:35)
[2021-10-28] MEDS: POTASSIUM CHLORIDE CRTAB 20 MEQ TABCR PO SCH (08:35)
[2021-10-28] MEDS: FOLIC ACID 1 MG TAB PO SCH (08:35)
[2021-10-28] MEDS: amLODIPine BESYLATE 5 MG TAB PO SCH (08:35)
[2021-10-28] MEDS: ENOXAPARIN INJ 40 MG/0.4 ML SYR SQ SCH (08:36)
[2021-10-28] MEDS ORDERED: POTASSIUM CHLORIDE CRTAB 20 MEQ TABCR PO STA (13:08)
--- NOTE | 2021-10-28 13:09 | Hospitalist Progress Note ---
Date of Service October 28, 2021 Assessment & Plan (1) Weakness: (2) Asymptomatic hypertensive urgency: Plan: 56 yo M with PMH of chronic alcoholism, hypertension, chronic hyponatremia (non compliance w/ fluid restriction), history of ambulatory dysfunction, history of esophageal stenosis status post dilation who presented 4/10 after falls and was found to have hypertensive urgency. He is being managed for the following: #. Ambulatory dysfunction #. Recurrent Falls : CT head at admission wnl. #. 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 #. Likely viral AGE Pt had multiple loose stools, pt feeling weak and nauseous in the morning, able to eat Now much improved C diff negative. gentle hydration, replace lytes, pedialyte by bedside. f/u electrolytes. Zofran for N/V. #. Uncontrolled HTN Pt reports not taking amlodipine at home; also abuses alcohol Resume home amlodipine, increased dose to 10 mg c/t monitor. Fairly under control. #. H/o recent Fracture of olecranon process, right, closed: Recent confinement September 06 to September 30, 2021 for right olecranon fracture S/P Right open reduction internal fixation olecranon fracture performed by Dr. Martinez on 09/09/21 Pt hit his rt elbow during fall prior to this admission Admitting imaging of rt elbow: no acute finding; post operative changes noted. continue to monitor. f/u ortho as OP. #. Chronic hyponatremia: Chronic hyponatremia, continue to monitor, patient noncompliant with fluid restriction and does not want fluid restriction while in hospital. Disposition: PT/OT, CM to assist with DC planning. DVT prophylaxis: Lovenox Full code Admission and Anticipated Discharge Date Admission Date: October 24, 2021 Subjective Patient seen in follow-up of alcohol abuse/dependence and ambulatory dysfunction and recurrent falls. Patient is lying in bed in NAD loose stools improved , but he cont. to feel week HTN not controlled and pt complained of ROACH earlier denies fevers, chills, chest pain, shortness of breath, no pain Review of Systems Review of Systems: All systems reviewed & are unremarkable except as noted in Subjective Physical Exam Physical Exam: GENERAL: Alert and oriented x3. NAD, on RA. HEENT: NC/AT. No pallor, no icterus. Pupils equal, round and reactive to light. Oral mucosa moist. NECK: No JVD, no neck masses. HEART: S1 and S2 heard. Regular rate and rhythm. No murmur, no gallop. RESPIRATORY: Normal AP diameter. No accessory muscle use. No wheezing, no crackles. ABDOMEN: Soft, bowel sounds present, nontender, no distention. NEURO: No facial droop. Speech is clear. Moves extremities. EXTREMITIES: No edema, no erythema seen. Scratch chapa in b/l thighs, no S/S of infection noted. Results & Data Results & Data ([facility]) Vital Signs (Past 12 Hours) Vital Signs Temp Pulse Pulse Resp BP BP Pulse Ox 10/28/21 10:58 36.6 C 73 20 173/96 H 99 10/28/21 07:10 109 H 10/28/21 06:39 36.5 C 69 18 166/94 H 99 10/28/21 04:14 36.6 C 74 20 181/94 H 98 10/28/21 03:54 67 175/94 H 185/101 H Laboratory Results 10/28/21 Range/Units 06:56 Sodium 133 L (136-145) mmol/L Potassium 3.7 (3.5-5.1) mmol/L Chloride 101 (98-107) mmol/L Carbon Dioxide 24 (21-32) mmol/L Anion Gap 8 (3-11) BUN 5 L (6-23) mg/dl Creatinine 0.52 L (0.6-1.4) mg/dl Est Cr Clr Drug Dosing 159.2 ml/min Est GFR ( Amer) 137.2 ml/min Est GFR (Non-Af Amer) 118.4 ml/min BUN/Creatinine Ratio 9.6 L (10-20) Glucose 118 H (70-99(Fasting)) mg/dl Calcium 8.7 (8.5-10.1) mg/dl Phosphorus 3.3 (2.5-4.9) mg/dl Magnesium 1.8 (1.7-2.4) mg/dl Medications Administered Current Inpatient Medications Acetaminophen (Acetaminophen 325 Mg Tab) 650 mg PO Q4H PRN PRN Reason: Pain or Fever Stop: 11/23/21 02:36 Last Admin: 10/28/21 10:23 Dose: 650 mg Documented by: Amlodipine Besylate (Amlodipine Besylate 5 Mg Tab) 5 mg PO [facility] Stop: 11/23/21 08:59 Last Admin: 10/28/21 08:35 Dose: 5 mg Documented by: Enoxaparin Sodium (Enoxaparin Inj 40 Mg/0.4 Ml Syr) 40 mg SQ [facility] Stop: 11/23/21 08:59 Last Admin: 10/28/21 08:36 Dose: 40 mg Documented by: Folic Acid (Folic Acid 1 Mg Tab) 1 mg PO [facility] Stop: 11/23/21 08:59 Last Admin: 10/28/21 08:35 Dose: 1 mg Documented by: Promethazine HCl 12.5 mg/ (Sodium Chloride) 50.5 mls @ 202 mls/hr IV Q6H PRN PRN Reason: Nausea And Vomiting Stop: 11/23/21 02:36 Lorazepam (Lorazepam 2 Mg/1 Ml Vial) 1 mg IV UD PRN; Protocol PRN Reason: EtOH Withdrawl AWSS Score 6,7 Stop: 11/23/21 02:36 Last Admin: 10/24/21 07:48 Dose: 1 mg Documented by: Lorazepam (Lorazepam 2 Mg/1 Ml Vial) 2 mg IV UD PRN; Protocol PRN Reason: EtOH Withdrawl AWSS Score 8,9 Stop: 11/23/21 02:36 Lorazepam (Lorazepam 2 Mg/1 Ml Vial) 3 mg IV ONCE PRN; Protocol PRN Reason: EtOH Withdrawl AWSS Score >=10 Stop: 11/23/21 02:36 Multivitamins (Multivitamin Tab) 1 tab PO [facility] Stop: 11/23/21 08:59 Last Admin: 10/28/21 08:35 Dose: 1 tab Documented by: Ondansetron HCl (Ondansetron Inj 2 Mg/Ml 2 Ml Vial) 4 mg IV Q6H PRN PRN Reason: Nausea And Vomiting Stop: 11/25/21 12:15 Last Admin: 10/27/21 00:14 Dose: 4 mg Documented by: Potassium Chloride (Potassium Chloride Crtab 20 Meq Tabcr) 20 meq PO [facility] Stop: 11/26/21 08:59 Last Admin: 10/28/21 08:35 Dose: 20 meq Documented by: Potassium Chloride (Potassium Chloride Crtab 20 Meq Tabcr) 20 meq PO [facility] Stop: 10/28/21 13:09 Thiamine HCl ([facility] Hcl 100 Mg Tab) [facility] Stop: 11/24/21 08:59 Last Admin: 10/28/21 08:35 Dose: 100 mg Documented by:
[2021-10-28] MEDS ORDERED: lisinopril 2.5 MG TAB PO ONE (15:45)
[2021-10-28] MEDS ORDERED: amLODIPine BESYLATE 5 MG TAB PO ONE (16:15)
[2021-10-29] MEDS: ACETAMINOPHEN 325 MG TAB PO PRN ×4 (00:32→16:41)
[2021-10-29] MEDS: ENOXAPARIN INJ 40 MG/0.4 ML SYR SQ SCH (07:36)
[2021-10-29] MEDS: MULTIVITAMIN TAB PO SCH (07:37)
[2021-10-29] MEDS: FOLIC ACID 1 MG TAB PO SCH (07:37)
[2021-10-29] MEDS: POTASSIUM CHLORIDE CRTAB 20 MEQ TABCR PO SCH (07:37)
[2021-10-29] MEDS: THIAMINE HCL 100 MG TAB PO SCH (07:37)
--- NOTE | 2021-10-29 08:28 | Hospitalist Progress Note ---
Date of Service October 29, 2021 Assessment & Plan (1) Weakness: (2) Asymptomatic hypertensive urgency: Plan: 56 yo M with PMH of chronic alcoholism, hypertension, chronic hyponatremia (non compliance w/ fluid restriction), history of ambulatory dysfunction, history of esophageal stenosis status post dilation who presented 4/10 after falls and was found to have hypertensive urgency. He is being managed for the following: #. Ambulatory dysfunction #. Recurrent Falls : CT head at admission wnl. #. 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 #. Likely viral AGE Pt had multiple loose stools, pt feeling weak and nauseous in the morning, able to eat Now much improved C diff negative. gentle hydration, replace lytes, pedialyte by bedside. f/u electrolytes. Zofran for N/V. #. Uncontrolled HTN Pt reports not taking amlodipine at home; also abuses alcohol Resume home amlodipine, increased dose to 10 mg c/t monitor. Fairly under control. #. H/o recent Fracture of olecranon process, right, closed: Recent confinement September 06 to September 30, 2021 for right olecranon fracture S/P Right open reduction internal fixation olecranon fracture performed by Dr. Martinez on 09/09/21 Pt hit his rt elbow during fall prior to this admission Admitting imaging of rt elbow: no acute finding; post operative changes noted. continue to monitor. f/u ortho as OP. #. Chronic hyponatremia: Chronic hyponatremia, continue to monitor, patient noncompliant with fluid restriction and does not want fluid restriction while in hospital. Disposition: PT/OT, CM to assist with DC planning. plan to DC home. Rolling walker provided. DVT prophylaxis: Lovenox Full code Admission and Anticipated Discharge Date Admission Date: October 24, 2021 Subjective Patient seen in follow-up of alcohol abuse/dependence and ambulatory dysfunction and recurrent falls. Patient is sitting up in bed in NAD loose stools now much improved denies fevers, chills, chest pain, shortness of breath, no pain Given his difficulties with transportation, will have his new medications provided via meds to beds. Review of Systems Review of Systems: All systems reviewed & are unremarkable except as noted in Subjective Physical Exam Physical Exam: GENERAL: Alert and oriented x3. NAD, on RA. HEENT: NC/AT. No pallor, no icterus. Pupils equal, round and reactive to light. Oral mucosa moist. NECK: No JVD, no neck masses. HEART: S1 and S2 heard. Regular rate and rhythm. No murmur, no gallop. RESPIRATORY: Normal AP diameter. No accessory muscle use. No wheezing, no crackles. ABDOMEN: Soft, bowel sounds present, nontender, no distention. NEURO: No facial droop. Speech is clear. Moves extremities. EXTREMITIES: No edema, no erythema seen. Scratch chapa in b/l thighs, no S/S of infection noted. Results & Data Results & Data ([facility]) Vital Signs (Past 12 Hours) Vital Signs Temp Pulse Pulse Resp BP Pulse Ox 10/29/21 07:15 62 10/29/21 03:00 36.7 C 77 20 145/92 H 97 10/28/21 23:17 80 10/28/21 22:00 36.8 C 79 20 145/97 H 99 Medications Administered Current Inpatient Medications Acetaminophen (Acetaminophen 325 Mg Tab) 650 mg PO Q4H PRN PRN Reason: Pain or Fever Stop: 11/23/21 02:36 Last Admin: 10/29/21 06:54 Dose: 650 mg Documented by: Amlodipine Besylate (A[facility]odipine Besylate 5 Mg Tab) [facility] Stop: 11/28/21 08:59 Last Admin: 10/29/21 07:37 Dose: 10 mg Documented by: Enoxaparin Sodium (Enoxaparin Inj 40 Mg/0.4 Ml Syr) [facility] Stop: 11/23/21 08:59 Last Admin: 10/29/21 07:36 Dose: 40 mg Documented by: Folic Acid (Folic Acid 1 Mg Tab) [facility] Stop: 11/23/21 08:59 Last Admin: 10/29/21 07:37 Dose: 1 mg Documented by: Promethazine HCl 12.5 mg/ (Sodium Chloride) 50.5 mls @ 202 mls/hr IV Q6H PRN PRN Reason: Nausea And Vomiting Stop: 11/23/21 02:36 Lorazepam (Lorazepam 2 Mg/1 Ml Vial) 1 mg IV UD PRN; Protocol PRN Reason: EtOH Withdrawl AWSS Score 6,7 Stop: 11/23/21 02:36 Last Admin: 10/24/21 07:48 Dose: 1 mg Documented by: Lorazepam (Lorazepam 2 Mg/1 Ml Vial) 2 mg IV UD PRN; Protocol PRN Reason: EtOH Withdrawl AWSS Score 8,9 Stop: 11/23/21 02:36 Lorazepam (Lorazepam 2 Mg/1 Ml Vial) 3 mg IV ONCE PRN; Protocol PRN Reason: EtOH Withdrawl AWSS Score >=10 Stop: 11/23/21 02:36 Multivitamins (Multivitamin Tab) 1 tab PO [facility] Stop: 11/23/21 08:59 Last Admin: 10/29/21 07:37 Dose: 1 tab Documented by: Ondansetron HCl (Ondansetron Inj 2 Mg/Ml 2 Ml Vial) 4 mg IV Q6H PRN PRN Reason: Nausea And Vomiting Stop: 11/25/21 12:15 Last Admin: 10/27/21 00:14 Dose: 4 mg Documented by: Potassium Chloride (Potassium Chloride Crtab 20 Meq Tabcr) 20 meq PO [facility] Stop: 11/26/21 08:59 Last Admin: 10/29/21 07:37 Dose: 20 meq Documented by: Thiamine HCl (Thiamine Hcl 100 Mg Tab) 100 mg PO [facility] Stop: 11/24/21 08:59 Last Admin: 10/29/21 07:37 Dose: 100 mg Documented by:
[2021-10-29] MEDS ORDERED: amLODIPine BESYLATE 5 MG TAB PO SCH (09:00)
--- NOTE | 2021-10-29 12:22 | Discharge Summary ---
Date of Service October 29, 2021 Admission HPI Per Admitting Provider History obtained from patient and records. History somewhat limited from patient secondary to marked hearing impairment. 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 Last confinement September 06 to September 30, 2021 for right olecranon fracture status post surgery. Patient discharged to rehab facility later returned to home. Patient noncompliant with Amlodipine blood pressure medicine prescribed during recent confinement. Yesterday morning, patient felt weak and unstable on his feet. He fell down on it and his right arm. Subsequent right elbow pain. No headache, no LOC, no chest pain, no S OB. Patient brought to the ER for evaluation. MEDICAL HISTORY: As above. SURGICAL HISTORY: Hernia surgery., Hip surgery, right elbow surgery. FAMILY HISTORY: Hypertension. PERSONAL AND SOCIAL HISTORY: Past tobacco abuse. Ongoing alcohol abuse. Disabled. Admission Exam Per Admitting Provider GENERAL: uncomfortable, hard of hearing, no respiratory distress SKIN: Pallor, warm HEENT: Partial alopecia, bespectacled, pale palpebral conjunctivae, no ptosis, dry buccal mucosa NECK : Supple, no tenderness CHEST : CTA, no tenderness HEART : RRR, no obvious murmurs ABDOMEN: Some distention, nontender EXTREMITIES : Tender right elbow swelling, no LE swelling/tenderness NEUROLOGIC : Coherent, no facial asymmetry, hard of hearing, tremulous, gait and stance not assessed Principal Diagnosis Ambulatory dysfunction Recurrent Falls Alcohol abuse/dependence Uncontrolled HTN Discharge Exam GENERAL: Alert and oriented x3. NAD, on RA. HEENT: NC/AT. No pallor, no icterus. Pupils equal, round and reactive to light. Oral mucosa moist. NECK: No JVD, no neck masses. HEART: S1 and S2 heard. Regular rate and rhythm. No murmur, no gallop. RESPIRATORY: Normal AP diameter. No accessory muscle use. No wheezing, no crackles. ABDOMEN: Soft, bowel sounds present, nontender, no distention. NEURO: No facial droop. Speech is clear. Moves extremities. EXTREMITIES: No edema, no erythema seen. Scratch chapa in b/l thighs, no S/S of infection noted. Discharge Data Allergies Allergy/AdvReac Type Severity Reaction Status Date / Time hydralazine Allergy Intermediate rapid drop Verified 10/23/21 21:21 in BP/Vomiting Penicillins AdvReac Mild TIRED Verified 10/23/21 21:21 Consultations 10/23/21 23:54 ED Decision to Admit Stat Ordered Studies 10/23/21 21:04 CT head/brain wo con Stat Hospital Course (1) Weakness: (2) Asymptomatic hypertensive urgency: 56 yo M with PMH of chronic alcoholism, hypertension, chronic hyponatremia (non compliance w/ fluid restriction), history of ambulatory dysfunction, history of esophageal stenosis status post dilation who presented 10/24 after falls and was found to have hypertensive urgency. He is being managed for the following: #. Ambulatory dysfunction #. Recurrent Falls : CT head at admission wnl. #. 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 Rollator prescription given Pt noncompliance, last alcohol use 2 days [employer], AWSS protocol PT/OT, CM to assist with DC planning Continue Thiamine and Folic acid counselled several times against alcohol use in future, patient doesn't seem motivated. #. Likely viral AGE Pt had multiple loose stools, pt feeling weak and nauseous in the morning, able to eat Now much improved C diff negative. gentle hydration, replace lytes, pedialyte by bedside. f/u electrolytes. Zofran for N/V. #. Uncontrolled HTN Pt reports not taking amlodipine at home; also abuses alcohol Resume home amlodipine, increased dose to 10 mg c/t monitor. Fairly under control. #. H/o recent Fracture of olecranon process, right, closed: Recent confinement September 06 to September 30, 2021 for right olecranon fracture S/P Right open reduction internal fixation olecranon fracture performed by Dr. Martinez on 09/09/21 Pt hit his rt elbow during fall prior to this admission Admitting imaging of rt elbow: no acute finding; post operative changes noted. continue to monitor. f/u ortho as OP. #. Chronic hyponatremia: Chronic hyponatremia, continue to monitor, patient noncompliant with fluid restriction and does not want fluid restriction while in hospital. Disposition: PT/OT, CM to assist with DC planning. plan to DC home. Rolling walker provided. DVT prophylaxis: Lovenox Full code Total Time Total Time Spent Total Time Spent (In Minutes): 40 Discharge Plan Discharge Items Patient Disposition: Home - Self-Care Reason For Visit: ETOH WITHDRAWAL, RHABDO Discharge Diagnosis: Ambulatory dysfunction Recurrent Falls Alcohol abuse/dependence Uncontrolled HTN Condition on Discharge: Fair Activity: Per Instructions section Non-emergency contact: Primary Care Provider Call non-emergency contact if: you have any medication questions and your symptoms worsen Follow-up/Referrals: Denis Burleson DO [Primary Care Provider] - (Date & Time 11/01/2021 11:20 AM Provider Denis Burleson DO Department Family [facility] PLEASE CALL THE [facility] OFFICE, , TODAY TO SET UP TRANSPORTATION TO YOUR DOCTORS APPOINTMENT- ITS FREE WITH YOUR INSURANCE !! * ) Diet: Heart Healthy Addtl Attending Provider Instructions: Follow up with the primary care doctor, the appointment was scheduled for you for November 01. You were started on a new medication, amlodipine, for blood pressure. Take 10 mg daily. Follow-up with your primary care doctor to further adjust your medications as needed. It is also recommended that you take vitamin supplements, specifically multivitamin, folic acid and thiamine. Rolling walker was provided for you to help you with ambulation. Pending Studies at Discharge: No Stand-Alone Forms: My [facility], Smoking Cessation Medications and DC Order Prescriptions: New amlodipine [Norvasc] 5 mg Tablet 10 mg PO QAM Qty: 30 RF: 0 potassium chloride 20 mEq Tablet,Er Particles/Crystals 20 meq PO QAM Qty: 20 RF: 0 folic acid 1 mg Tablet 1 mg PO QAM Qty: 30 RF: 0 multivitamin with folic acid [Daily-Ifeanyi (with folic acid)] 400 mcg Tablet 1 tab PO QAM Qty: 30 RF: 0 thiamine HCl (vitamin B1) 100 mg Tablet 100 mg PO QAM Qty: 30 RF: 0 Continued Excedrin Extra Strength 250-250-65 mg Tablet 1 tab PO BID PRN (Reason: Pain) RF: 0 Discharge Orders: Discharge Order (Routine); Ordered 10/29/21 Ordered By: Bernardo Adkins Admission Data Admit Date/Time: 10/24/21 00:52 Attending Provider: Bernardo Adkinsit Provider: Tung Arana Primary Care Provider: Denis Burleson Other Providers: Tung Arana ; Eden Paul Other Interventions: Discharge Summary Assessment (RN) Last Done: 10/29/21 11:35
== END 2021-10-29 17:10 | disposition home or self-care (01) | DRG 897 ==
LOC: ED 20:15 → SUATTDRO 10-24 00:52 → 2W 10-24 00:52

== ENCOUNTER 2021-11-10 00:47 | Inpatient (IN) ==
--- NOTE | 2021-11-10 01:18 | Emergency Department Note ---
Impression & Plan Acute hyponatremia ADMIT ED Provider Note HPI: The patient is a 56-year-old male with alcohol use disorder, presents emergency department with a chief complaint of intoxication. Patient was apparently at a local establishment, became intoxicated and was unable to walk when staff asked him to leave, EMS was contacted and the patient was transported to the ED. No reported trauma. On my assessment the patient is alert but he is intoxicated appearing, he is unable to provide me with much useful history, denies any focal complaint of pain, he does not have any external evidence of trauma on my initial evaluation. Patient is otherwise hemodynamically stable on arrival, saturating well on room air. ROS: -General: Alcohol intoxication *10 point review systems was conducted and is otherwise negative unless stated above *Outpatient medications and allergy history reviewed PE: General: Alert, NAD, disheveled appearing, frail-appearing, intoxicated HEENT: Normocephalic, atraumatic Eyes: Extraocular eye movement is intact, no scleral erythema Pulmonary: Clear to auscultation bilaterally, no wheezing Cardio: Regular rate and rhythm GI: Abdomen is soft, nontender : No suprapubic tenderness MSK: No evidence of trauma or malformation of the extremities, no edema Skin: No evidence of rash Neuro: Alert, no focal deficits Psychiatric: Intoxicated but cooperative quality assurance monitor body: - An order was placed for continuous cardiac monitoring - Patient was noted to be in sinus rhythm with rate of 70 Medical Decision Making: Patient presented to the emergency department with alcohol intoxication, states he does not completely remember the events of last evening, he was reportedly drinking at a local establishment, became intoxicated and was unable to ambulate and therefore EMS was contacted by staff at the bar to transport the patient to the ED. On arrival the patient is intoxicated but otherwise hemodynamically stable. Lab work was obtained and shows an alcohol level of 370, hyponatremia 126, hypochloremia. Patient does have hyponatremia at baseline although his levels usually run around 133. Patient was observed overnight in the ED for his alcohol intoxication, on my reassessment in the morning, he is more clinically sober, he tells me that he has had some ambulatory issues recently, states they have been worse over about the past week. Difficult to assess this given that he does have acute hyponatremia in addition to frequent alcohol use. There is likely an element of beer potomania, regardless the patient states he does not feel well for discharge, given his electrolyte abnormalities I did discuss the case with the on-call hospitalist for [facility], Dr. Mallory, and the patient will be admitted to the hospitalist service for further management. EKG added, chest x-ray ordered. Patient stated his preference for admission and he was admitted in stable condition. Diagnosis: 1. Alcohol intoxication 2. Acute on chronic hyponatremia 3. Ambulatory dysfunction Disposition: Admission Keven Mcdaniels DO Emergency Medicine Past Med/Surg History Medical History Adult failure to thrive Alcohol use disorder Ambulatory dysfunction Anemia Anxiety Aortic root dilation Ataxia Bunion of unspecified foot Dementia DTs (delirium tremens) Esophageal tear Flat foot, acquired Frequent falls Generalized atherosclerosis Generalized weakness Hammer toe, acquired unspecified Hearing deficit Hereditary and idiopathic neuropathy, unspecified History of COVID-19 ? 07/17/20 per records History of esophageal dilatation last done 04/16/21 @ [facility] History of esophageal stricture Hx of fracture of hip Hypertension Hypokalemia Hypomagnesemia alf resident [facility] 2500 cc fluid daily restriction was noted in records Sensorineural hearing loss (SNHL) of both ears Subgaleal hemorrhage Surgical History History of esophagogastroduodenoscopy (EGD) (~04/16/21) History of hip surgery s/p fall and fx Family History Other Cancer Hypertension Denies family history of Myocardial infarction Stroke Social History Smoking Status: Unknown if ever smoked Tobacco Type: Cigarettes Second Hand Exposure: No; Hx Alcohol Use: Yes Alcohol type: beer Alcohol Intake Frequency Comment: 7-10 beers a day, uncertain which kind of beer Hx Substance Use: No Preferred Language: Cypriot Communication Ability: Effective Visual Impairment: No Limitations Hearing Ability: Hard of Hearing Field Representatives Director Required: No Beliefs That Will Affect Care: None marital status: Single Current Living Situation: Alone Current Living Situation Comment: [address] Feels Safe at Home: Yes Assistive Devices: Cane Allergies Allergies Allergy/AdvReac Type Severity Reaction Status Date / Time hydralazine Allergy Intermediate rapid drop Verified 11/10/21 01:19 in BP/Vomiting Penicillins AdvReac Mild TIRED Verified 11/10/21 01:19 Home Meds Home Medications Medication Instructions Recorded Confirmed [id number] 250 1 tab PO BID PRN 10/23/21 11/10/21 mg-250 mg-65 mg tablet (Excedrin Extra Strength) cholecalciferol (vitamin D3) 25 1,000 unit PO DAILY 11/10/21 11/10/21 mcg (1,000 unit) tablet (Vitamin D3) hydroxyzine HCl 25 mg tablet 25 mg PO BID PRN 11/10/21 11/10/21 sodium chloride 1 gram tablet 1 g PO BID 11/10/21 11/10/21 Previous Rx's Medication Instructions Recorded amlodipine 5 mg tablet (Norvasc) 10 mg PO QAM #30 tab 10/29/21 folic acid 1 mg tablet 1 mg PO QAM #30 tab 10/29/21 multivitamin with folic acid 400 1 tab PO QAM #30 tab 10/29/21 mcg tablet (Daily-Ifeanyi (with folic acid)) potassium chloride 20 mEq 20 meq PO QAM #20 tab 10/29/21 tablet,extended release(part/cryst) thiamine HCl (vitamin B1) 100 mg 100 mg PO QAM #30 tab 10/29/21 tablet Results & Data (ED) Vital Signs Vital Signs - 24 hr 11/10/21 00:54 11/10/21 00:56 11/10/21 00:59 Temperature 36.5 C Temperature Source Oral Pulse Rate 84 85 80 Pulse Rate [Right Finger] Pulse Rate from SpO2 Sensor 84 Pulse Rhythm Regular Pulse Rhythm [Right Finger] Pulse Strength Normal Pulse Strength [Right Finger] Respiratory Rate 14 18 17 Respiratory Effort / Characteristics Non-Labored Spontaneous Respiratory Depth Normal Blood Pressure 138/91 144/83 H Blood Pressure [Right Arm] Blood Pressure Mean 106 103 Blood Pressure Mean [Right Arm] Blood Pressure Position Lying Blood Pressure Position [Right Arm] Pulse Oximetry 95 96 Oxygen Delivery Method Room Air Sepsis Recent Fever Within 48 Hours No Sepsis New/Unexplained Change in Mental Status No Sepsis Action Taken by Nursing No Action Required 11/10/21 01:00 11/10/21 01:30 11/10/21 02:00 Temperature Temperature Source Pulse Rate 82 81 79 Pulse Rate [Right Finger] Pulse Rate from SpO2 Sensor 79 78 Pulse Rhythm Pulse Rhythm [Right Finger] Pulse Strength Pulse Strength [Right Finger] Respiratory Rate 16 17 14 Respiratory Effort / Characteristics Respiratory Depth Blood Pressure 138/83 129/79 113/69 Blood Pressure [Right Arm] Blood Pressure Mean 101 95 83 Blood Pressure Mean [Right Arm] Blood Pressure Position Blood Pressure Position [Right Arm] Pulse Oximetry 99 97 94 Oxygen Delivery Method Room Air Sepsis Recent Fever Within 48 Hours Sepsis New/Unexplained Change in Mental Status Sepsis Action Taken by Nursing 11/10/21 02:30 11/10/21 03:00 11/10/21 03:30 Temperature Temperature Source Pulse Rate 79 79 79 Pulse Rate [Right Finger] Pulse Rate from SpO2 Sensor 78 79 78 Pulse Rhythm Pulse Rhythm [Right Finger] Pulse Strength Pulse Strength [Right Finger] Respiratory Rate 14 16 15 Respiratory Effort / Characteristics Respiratory Depth Blood Pressure 106/66 110/65 128/70 Blood Pressure [Right Arm] Blood Pressure Mean 79 80 89 Blood Pressure Mean [Right Arm] Blood Pressure Position Blood Pressure Position [Right Arm] Pulse Oximetry 96 90 95 Oxygen Delivery Method Sepsis Recent Fever Within 48 Hours Sepsis New/Unexplained Change in Mental Status Sepsis Action Taken by Nursing 11/10/21 04:00 11/10/21 04:30 11/10/21 06:04 Temperature Temperature Source Pulse Rate 77 81 Pulse Rate [Right Finger] 74 Pulse Rate from SpO2 Sensor Pulse Rhythm Pulse Rhythm [Right Finger] Regular Pulse Strength Pulse Strength [Right Finger] Normal Respiratory Rate 16 15 16 Respiratory Effort / Characteristics Non-Labored Spontaneous Respiratory Depth Normal Blood Pressure 76/52 L 142/89 H Blood Pressure [Right Arm] 138/85 Blood Pressure Mean 60 106 Blood Pressure Mean [Right Arm] 102 Blood Pressure Position Blood Pressure Position [Right Arm] Lying Pulse Oximetry 95 95 Oxygen Delivery Method Room Air Sepsis Recent Fever Within 48 Hours Sepsis New/Unexplained Change in Mental Status Sepsis Action Taken by Nursing Laboratory Data Result diagrams: 11/10/21 01:16 Lab Results 11/10/21 11/10/21 11/10/21 Range/Units 01:16 01:16 01:33 Sodium 126 L (136-145) mmol/L Potassium 3.2 L (3.5-5.1) mmol/L Chloride 89 L (98-107) mmol/L Carbon Dioxide 26 (21-32) mmol/L Anion Gap 11 (3-11) BUN 8 (6-23) mg/dl Creatinine 0.62 (0.6-1.4) mg/dl Est Cr Clr Drug Dosing Not Reportable Est GFR ( Amer) 127.6 ml/min Est GFR (Non-Af Amer) 110.1 ml/min BUN/Creatinine Ratio 12.9 (10-20) Glucose 96 (70-99(Fasting)) mg/dl POC Glucose 92 (70-99) mg/dl Calcium 8.2 L (8.5-10.1) mg/dl Total Bilirubin 0.3 (0.2-1.0) mg/dl AST 24 (13-39) U/L ALT 11 (7-52) U/L Alkaline Phosphatase 59 (34-104) U/L Total Protein 6.8 (6.0-8.3) gm/dl Albumin 4.0 (3.4-5.0) gm/dl Globulin 2.8 (2.5-4.0) gm/dl Albumin/Globulin Ratio 1.4 (0.9-2) Ethyl Alcohol mg/dL 369.9 H (<10.0) mg/dl Discharge Plan Visit Data Chief Complaint: Alcohol Intoxication Stated Complaint: ETOH ED Provider: Keven Mcdaniels Discharge Problem: Acute hyponatremia Forms Stand Alone Forms: My [facility] Prescriptions Prescriptions: No Action cholecalciferol (vitamin D3) [Vitamin D3] 25 mcg (1,000 unit) tablet 1,000 unit PO DAILY RF: 0 sodium chloride 1 gram tablet 1 g PO BID RF: 0 hydroxyzine HCl 25 mg tablet 25 mg PO BID PRN (Reason: Itching) RF: 0 Excedrin Extra Strength 250-250-65 mg Tablet 1 tab PO BID PRN (Reason: Pain) RF: 0 amlodipine [Norvasc] 5 mg Tablet 10 mg PO QAM Qty: 30 RF: 0 potassium chloride 20 mEq Tablet,Er Particles/Crystals 20 meq PO QAM Qty: 20 RF: 0 folic acid 1 mg Tablet 1 mg PO QAM Qty: 30 RF: 0 multivitamin with folic acid [Daily-Ifeanyi (with folic acid)] 400 mcg Tablet 1 tab PO QAM Qty: 30 RF: 0 thiamine HCl (vitamin B1) 100 mg Tablet 100 mg PO QAM Qty: 30 RF: 0 Referrals Referrals: Denis Burleson DO [Primary Care Provider] -
[2021-11-10 01:42] LABS: Alanine Aminotransferase 11 U/L (7-52); Albumin Globulin Ratio 1.4 (0.9-2); Alkaline Phosphatase 59 U/L (34-104); Anion Gap 11 (3-11); Aspartate Aminotransferase 24 U/L (13-39); BUN Creatinine Ratio 12.9 (10-20); Bilirubin,Total 0.3 mg/dl (0.2-1.0); Blood Urea Nitrogen 8 mg/dl (6-23); Calcium 8.2 mg/dl (8.5-10.1); Carbon Dioxide 26 mmol/L (21-32); Chloride 89 mmol/L (98-107); Est GFR (African American) 127.6 ml/min; Est GFR (Non-African American) 110.1 ml/min; Globulin 2.8 gm/dl (2.5-4.0); Glucose 96 mg/dl (70-99(Fasting)); Potassium 3.2 mmol/L (3.5-5.1); Sodium 126 mmol/L (136-145); Total Protein 6.8 gm/dl (6.0-8.3)
[2021-11-10] MEDS ORDERED: SODIUM CHLORIDE 0.9% 1000ML 1,000 ML IV ONE (06:27)
[2021-11-10] MEDS ORDERED: THIAMINE HCL 100 MG in SYRINGE 9 ML IV STA (06:40)
[2021-11-10] MEDS ORDERED: POTASSIUM CHLORIDE CRTAB 20 MEQ TABCR PO STA (06:42)
--- NOTE | 2021-11-10 07:13 | History & Physical Report ---
Date of Service November 10, 2021 Assessment & Plan (1) Syncope and collapse: Plan: Likely secondary to orthostasis given hypotension on arrival Rule out structural TATTOO ARTIST pathology, cardiac dysfunction Acute on chronic hyponatremia Multifactorial: Hypovolemia, alcohol abuse hx old CVA on CAT scan history of esophageal stenosis per records chronic anemia, hemoglobin at baseline hx ambulatory dysfunction Hypokalemia past tobacco abuse Medical telemetry Appropriate to hold antihypertensives for now given hypotension Follow official CT head result TTE RE syncope Careful correction of sodium ELISE S, DT precautions Replace potassium PT OT eval DVT prophylaxis SCDs for now until bleed ruled out on CT head Full code Text document was generated using iovation voice recognition software. It may contain grammatical or spelling errors. Kindly contact undersigned for clarification of any documentation item in question. History of Present Illness Chief Complaint: I collapsed Primary Care Provider: Denis Burleson DO History obtained from patient and records. History somewhat limited from patient secondary to marked hearing impairment. 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 Last confinement 2 weeks ago for ambulatory dysfunction and recurrent falls. Patient discharged on amlodipine for blood pressure control. Patient became intoxicated at a local bar and unable to walk when staff asked him to leave. Patient remembers collapsing and waking up in the ER. Patient denies headache, chest pain, SOB. EMS called to bring the patient to ER for evaluation. Upon waking up, patient realized that he does not feel safe going home. MEDICAL HISTORY: As above. SURGICAL HISTORY: Hernia surgery., Hip surgery, right elbow surgery. FAMILY HISTORY: Hypertension. PERSONAL AND SOCIAL HISTORY: Past tobacco abuse. Ongoing alcohol abuse. Disabled. Allergies Allergy/AdvReac Type Severity Reaction Status Date / Time hydralazine Allergy Intermediate rapid drop Verified 11/10/21 01:19 in BP/Vomiting Penicillins AdvReac Mild TIRED Verified 11/10/21 01:19 Home Medications Medication Instructions Recorded Confirmed Type rtpfaat-tjwbozyzbarus-stsxkwkf 250 1 tab PO BID PRN 10/23/21 11/10/21 History mg-250 mg-65 mg tablet (Excedrin Extra Strength) amlodipine 5 mg tablet (Norvasc) 10 mg PO QAM #30 tab 10/29/21 11/10/21 Rx folic acid 1 mg tablet 1 mg PO QAM #30 tab 10/29/21 11/10/21 Rx multivitamin with folic acid 400 1 tab PO QAM #30 tab 10/29/21 11/10/21 Rx mcg tablet (Daily-Ifeanyi (with folic acid)) potassium chloride 20 mEq 20 meq PO QAM #20 tab 10/29/21 11/10/21 Rx tablet,extended release(part/cryst) thiamine HCl (vitamin B1) 100 mg 100 mg PO QAM #30 tab 10/29/21 11/10/21 Rx tablet cholecalciferol (vitamin D3) 25 1,000 unit PO DAILY 11/10/21 11/10/21 History mcg (1,000 unit) tablet (Vitamin D3) hydroxyzine HCl 25 mg tablet 25 mg PO BID PRN 11/10/21 11/10/21 History sodium chloride 1 gram tablet 1 g PO BID 11/10/21 11/10/21 History Past Med/Surg History Medical History Adult failure to thrive Alcohol use disorder Ambulatory dysfunction Anemia Anxiety Aortic root dilation Ataxia Bunion of unspecified foot Dementia DTs (delirium tremens) Esophageal tear Flat foot, acquired Frequent falls Generalized atherosclerosis Generalized weakness Hammer toe, acquired unspecified Hearing deficit Hereditary and idiopathic neuropathy, unspecified History of COVID-19 ? 07/17/20 per records History of esophageal dilatation last done 04/16/21 @ [facility] History of esophageal stricture Hx of fracture of hip Hypertension Hypokalemia Hypomagnesemia longterm resident [facility] 2500 cc fluid daily restriction was noted in records Sensorineural hearing loss (SNHL) of both ears Subgaleal hemorrhage Surgical History History of esophagogastroduodenoscopy (EGD) (~04/16/21) History of hip surgery s/p fall and fx Family History Other Cancer Hypertension Denies family history of Myocardial infarction Stroke Social History Smoking Status: Unknown if ever smoked Tobacco Type: Cigarettes Second Hand Exposure: No; Hx Alcohol Use: Yes Alcohol type: beer Alcohol Intake Frequency Comment: 7-10 beers a day, uncertain which kind of beer Hx Substance Use: No Preferred Language: Japanese Communication Ability: Effective Visual Impairment: No Limitations Hearing Ability: Hard of Hearing Application Support Administrator Required: No Beliefs That Will Affect Care: None marital status: Single Current Living Situation: Alone Current Living Situation Comment: [address] Feels Safe at Home: Yes Assistive Devices: Cane Review of Systems Review of Systems: As per HPI, all other systems reviewed and negative Physical Exam Physical Exam: GENERAL: uncomfortable, hard of hearing, slightly anxious, no respiratory distress SKIN: Pallor, warm HEENT: Partial alopecia, bespectacled, pale palpebral conjunctivae, no ptosis, dry buccal mucosa NECK : Supple, no tenderness CHEST : CTA, no tenderness HEART : RRR, no obvious murmurs ABDOMEN: Some distention, nontender EXTREMITIES : no LE swelling, no LE tenderness NEUROLOGIC : Coherent, no facial asymmetry, hard of hearing, gait and stance not assessed Results & Data Results & Data ([facility]) Vital Signs (Past 12 Hours) Vital Signs Temp Pulse Pulse Resp BP BP Pulse Ox 11/10/21 06:04 74 16 138/85 95 11/10/21 04:30 81 15 142/89 H 95 11/10/21 04:00 77 16 76/52 L 11/10/21 03:30 79 15 128/70 95 11/10/21 03:00 79 16 110/65 90 11/10/21 02:30 79 14 106/66 96 11/10/21 02:00 79 14 113/69 94 11/10/21 01:30 81 17 129/79 97 11/10/21 01:00 82 16 138/83 99 11/10/21 00:59 80 17 144/83 H 11/10/21 00:56 85 18 96 11/10/21 00:54 36.5 C 84 14 138/91 95 Laboratory Results Laboratory Results Sodium 126 mmol/L (136-145) L 11/10/21 01:16 Potassium 3.2 mmol/L (3.5-5.1) L 11/10/21 01:16 Chloride 89 mmol/L (98-107) L 11/10/21 01:16 Carbon Dioxide 26 mmol/L (21-32) 11/10/21 01:16 Anion Gap 11 (3-11) 11/10/21 01:16 BUN 8 mg/dl (6-23) 11/10/21 01:16 Creatinine 0.62 mg/dl (0.6-1.4) 11/10/21 01:16 Est Cr Clr Drug Dosing Not Reportable 11/10/21 01:16 Est GFR ( Amer) 127.6 ml/min 11/10/21 01:16 Est GFR (Non-Af Amer) 110.1 ml/min 11/10/21 01:16 BUN/Creatinine Ratio 12.9 (10-20) 11/10/21 01:16 Glucose 96 mg/dl (70-99(Fasting)) 11/10/21 01:16 POC Glucose 92 mg/dl (70-99) 11/10/21 01:33 Calcium 8.2 mg/dl (8.5-10.1) L 11/10/21 01:16 Total Bilirubin 0.3 mg/dl (0.2-1.0) 11/10/21 01:16 AST 24 U/L (13-39) 11/10/21 01:16 ALT 11 U/L (7-52) 11/10/21 01:16 Alkaline Phosphatase 59 U/L (34-104) 11/10/21 01:16 Total Protein 6.8 gm/dl (6.0-8.3) 11/10/21 01:16 Albumin 4.0 gm/dl (3.4-5.0) 11/10/21 01:16 Globulin 2.8 gm/dl (2.5-4.0) 11/10/21 01:16 Albumin/Globulin Ratio 1.4 (0.9-2) 11/10/21 01:16 Ethyl Alcohol mg/dL 369.9 mg/dl (<10.0) H 11/10/21 01:16 Diagnostic Findings Chest x-ray as per my interpretation hyperinflation EKG as per my interpretation :Rate 90, NSR, normal axis, multiple artifacts
[2021-11-10 07:48] LABS: Appearance Urine Clear (Clear); Bilirubin Urine Negative (Negative); Blood Urine Negative (Negative); Color Urine Yellow; Glucose Urine UA Negative (Negative); Ketones Urine Negative (Negative); Leukocyte Esterase Urine Negative (Negative); Nitrite Urine Negative (Negative); Protein Urine Negative (Negative); Specific Gravity Urine 1.003 (1.000-1.030); Urobilinogen Urine Negative (Negative); pH Urine 6.5 (4.5-7.5)
--- NOTE | 2021-11-10 08:11 | XRay Report ---
SINGLE VIEW CHEST CLINICAL HISTORY: Hyponatremia. FINDINGS: An AP, portable, upright chest radiograph is compared to study dated 10/23/2021 and correlate d with chest CT dated 12/03/2018. The cardiomediastinal silhouette is top normal for projection noting atherosclerotic calcification of the thoracic aorta. Enlargement of the central pulmonary arteries i s unchanged and likely represents pulmonary artery hypertension. Emphysema and chronic interstitial t hickening is similar to previous. Scarring/atelectasis is noted at the lung bases. No airspace consol idation or large pleural effusion is identified. No pneumothorax is seen. The skeletal structures are osteopenic. There are healed left-sided rib fracture. IMPRESSION: Emphysematous change with no acute cardiopulmonary abnormality identified. ACT 112: Negative or not required by law. Electronically signed by: Froy Lau M.D. 11/10/2021 8:09 AM
--- NOTE | 2021-11-10 08:55 | CT Scan Report ---
CT head/brain wo con CLINICAL HISTORY: syncope Technique: Contiguous axial CT images of the head were acquired from the base of the skull to the anshul shireen without intravenous contrast administration. Images were viewed in brain, subdural and bone [facility] . Automated dose lowering techniques and/or adjustment according to patient size were utilized for this exam. Comparison: Comparison is made to CT head for 04/05/2022 Findings: Areas of decreased attenuation are present in the periventricular and subcortical white matter bilate rally consistent with small vessel ischemic disease. Generalized cerebral atrophy with commensurate e nlargement of the ventricles, sulci, and cisterns is also present. There is no acute intracranial hem orrhage or evidence of acute territorial infarction. No shift of the midline structures, mass effect, or extra-axial abnormalities are shown. Atherosclerotic calcifications are present in the intracran ial segments of the internal carotid arteries. Imaged portions of the paranasal sinuses and mastoid air cells are clear. The orbits appear normal. There are no acute fractures of the calvaria or scalp swelling. Impression: No acute intracranial hemorrhage, no evidence of acute territorial infarction or other acute intracra nial disease process. ACT 112: Negative or not required by law. Electronically signed by: Louie Chavarria M.D. 11/10/2021 8:53 AM
--- NOTE | 2021-11-10 10:25 | Electrocardiogram Report ---
Test Reason : Blood Pressure : / mmHG Vent. Rate : 092 BPM Atrial Rate : 078 BPM P-R Int : 000 ms QRS Dur : 082 ms QT Int : 420 ms P-R-T Axes : 000 037 -72 degrees QTc Int : 519 ms Poor data quality, interpretation may be adversely affected Normal sinus rhythm Septal infarct (cited on or before 23-OCT-2021) Abnormal ECG When compared with ECG of 23-OCT-2021 22:14, No significant change Confirmed by Malvin Hector ([id number]) on 11/10/2021 10:24:29 AM Referred By: REFERRED SELF Confirmed By:Malvin Hector
[2021-11-10] MEDS ORDERED: LORazepam 2 MG/1 ML VIAL IV PRN ×3 (11:53)
[2021-11-10] MEDS ORDERED: SODIUM CHLORIDE 1 GM TABLET PO SCH (11:53)
[2021-11-10] MEDS ORDERED: ATIVAN IV ALCOHOL WITHDRAWL IV PRN (11:53)
[2021-11-10] MEDS ORDERED: oxyCODONE HCL IR 5 MG TAB (IMMEDIATE RELEASE) PO PRN (11:53)
[2021-11-10] MEDS ORDERED: PROMETHAZINE HCL 12.5 MG in SODIUM CHLORIDE 0.9% 50 ML IV PRN (11:53)
[2021-11-10] MEDS: ACETAMINOPHEN 325 MG TAB PO PRN ×2 (12:38→23:44)
[2021-11-10] MEDS: FOLIC ACID 1 MG TAB PO SCH (12:39)
[2021-11-10] MEDS: MULTIVITAMIN TAB PO SCH (12:39)
--- NOTE | 2021-11-10 13:04 | Nephrology Consultation ---
Date of Consultation November 10, 2021 Assessment & Plan (1) Chronic hyponatremia: Presented w/ serum sodium 126 on 11/10 at 0100 and K 3.2. Goal sNa is 133 for midnight this evening. -f/u repeat noon labs >> sodium 133 and K now 2.8 -maintain eukalemia >> will give him D5W with 40 mEq / L K at 80 mL/hr as well as 30 mEq K po x 2 doses q 1hr >> recheck bmp at 1800 with phos given weakness >will put salt tab on hold -on clear liquid diet currently; will revisit FR when taking more consistently (2) Hypertension: transient lability/hypotension in ER; since then relatively hypertensive likely multifactorial -on salt tabs -next bp medication (amlodipine or lasix) to depend on 1300 labs > would add amlodipine 5 mg here and monitor for withdrawal EtOH (3) Alcohol use disorder: root cause of/contributor to low Na, HTN, frequent falls History of Present Illness Reason for Consultation: hyponatremia Requesting Physician: Dr Adkins Attending Physician: Bernardo Adkins MD History of Present Illness 56-year-old male whom I am asked to evaluate for hyponatremia was admitted last evening for evaluation of syncope and collapse in the setting of acute on chronic hyponatremia and EtOH intoxication. Presenting sodium was 126. He collapsed when asked to leave a local bar; brought to ER intoxicated Blood pressures in the ER ranged from 76-144 systolic. However generally SBP are from 110s to 140s in ER. Hyponatremia data as below. Past medical history includes hypertension, stroke, hyponatremia, alcohol abuse, chronic ambulatory dysfunction, nonadherence to medical regimen. He was admitted here October 24 to October 29 for ambulatory dysfunction with recurrent falls, alcohol abuse, uncontrolled hypertension. At hospital discharge, his outpatient amlodipine was increased to 10 mg daily. He has historically been nonadherent with fluid limits. Overnight, the patient had 1 L of normal saline. alSo received 40 mill equivalents of potassium p.o. x1. His outpatient sodium chloride tablets were continued and amlodipine held. He c/o marked generalized weakness and fatigue. no sob, no n/v; taking minimal po. no edema. no diarrhea. Allergies Allergy/AdvReac Type Severity Reaction Status Date / Time hydralazine Allergy Intermediate rapid drop Verified 11/10/21 01:19 in BP/Vomiting Penicillins AdvReac Mild TIRED Verified 11/10/21 01:19 Home Medications Medication Instructions Recorded Confirmed Type zdbydro-edblmeybbiyuk-oweizgor 250 1 tab PO BID PRN 10/23/21 11/10/21 History mg-250 mg-65 mg tablet (Excedrin Extra Strength) amlodipine 5 mg tablet (Norvasc) 10 mg PO QAM #30 tab 10/29/21 11/10/21 Rx folic acid 1 mg tablet 1 mg PO QAM #30 tab 10/29/21 11/10/21 Rx multivitamin with folic acid 400 1 tab PO QAM #30 tab 10/29/21 11/10/21 Rx mcg tablet (Daily-Ifeanyi (with folic acid)) potassium chloride 20 mEq 20 meq PO QAM #20 tab 10/29/21 11/10/21 Rx tablet,extended release(part/cryst) thiamine HCl (vitamin B1) 100 mg 100 mg PO QAM #30 tab 10/29/21 11/10/21 Rx tablet cholecalciferol (vitamin D3) 25 1,000 unit PO DAILY 11/10/21 11/10/21 History mcg (1,000 unit) tablet (Vitamin D3) hydroxyzine HCl 25 mg tablet 25 mg PO BID PRN 11/10/21 11/10/21 History sodium chloride 1 gram tablet 1 g PO BID 11/10/21 11/10/21 History Patient History Medical History Adult failure to thrive Alcohol use disorder Ambulatory dysfunction Anemia Anxiety Aortic root dilation Ataxia Bunion of unspecified foot Chronic hyponatremia Dementia DTs (delirium tremens) Esophageal tear Flat foot, acquired Frequent falls Generalized atherosclerosis Generalized weakness Hammer toe, acquired unspecified Hearing deficit Hereditary and idiopathic neuropathy, unspecified History of COVID-19 ? 07/17/20 per records History of esophageal dilatation last done 04/16/21 @ [facility] History of esophageal stricture Hx of fracture of hip Hypertension Hypokalemia Hypomagnesemia group home resident [facility] 2500 cc fluid daily restriction was noted in records Sensorineural hearing loss (SNHL) of both ears Subgaleal hemorrhage Surgical History History of esophagogastroduodenoscopy (EGD) (~04/16/21) History of hip surgery s/p fall and fx Family History Other Cancer Hypertension Denies family history of Myocardial infarction Stroke Social History Smoking Status: Never smoker Tobacco Type: Cigarettes Second Hand Exposure: No; Hx Alcohol Use: Yes Alcohol type: hard liquor Alcohol Intake Frequency Comment: 7-10 beers a day, uncertain which kind of beer Hx Substance Use: No Preferred Language: Setswana Communication Ability: Effective Visual Impairment: No Limitations Hearing Ability: Hard of Hearing Staff Weapons Officer Required: No Beliefs That Will Affect Care: None marital status: Single Current Living Situation: Alone Current Living Situation Comment: [address] Feels Safe at Home: Yes Assistive Devices: Walker Review of Systems Review of Systems: All systems reviewed & are unremarkable except as noted in Subjective Physical Exam Constitutional: well developed, + thin, + frail appearing and cooperative (to a degree); no acute distress Eyes: EOM intact bilaterally ENMT: Ears: no external ear abnormality Nose: no external nose abnormality Mouth: + dry oral mucous membranes Neck: no nuchal rigidity Respiratory: normal respiratory effort Auscultation: + diminished lung sounds Cardiovascular: RRR, no murmur, no edema Gastrointestinal (Abdomen): Inspection/Auscultation: normal bowel sounds Percussion/Palpation: abdomen soft; abdomen nontender Musculoskeletal: strength abnormal Skin: no rashes, warm and dry Neurologic: cortez, fluent speech, no tremor Psychiatric: Orientation: oriented to person tells me he needs to start a job tomorrow at [employer] Results & Data ([facility]) Vital Signs (Past 12 Hours) Vital Signs Temp Pulse Pulse Resp BP BP Pulse Ox 11/10/21 12:10 87 150/89 H 11/10/21 12:00 36.3 C L 91 H 20 154/96 H 100 11/10/21 11:53 91 H 11/10/21 11:00 88 13 99/64 L 98 11/10/21 10:30 89 15 154/81 H 100 11/10/21 10:00 94 H 14 119/94 100 11/10/21 09:30 82 13 100/61 11/10/21 09:00 93 H 16 126/70 11/10/21 08:49 84 15 134/96 11/10/21 06:04 74 16 138/85 95 11/10/21 04:30 81 15 142/89 H 95 11/10/21 04:00 77 16 76/52 L 11/10/21 03:30 79 15 128/70 95 11/10/21 03:00 79 16 110/65 90 11/10/21 02:30 79 14 106/66 96 11/10/21 02:00 79 14 113/69 94 11/10/21 01:30 81 17 129/79 97 11/10/21 01:00 82 16 138/83 99 11/10/21 00:59 80 17 144/83 H 11/10/21 00:56 85 18 96 11/10/21 00:54 36.5 C 84 14 138/91 95 Laboratory Results Sodium at 1 AM today 126, repeat level pending Potassium 3.2 same time. Serum osmolality 0800 today: 332; urine osmolality 131, random urine sodium less than 10 Diagnostic Findings Chest x-ray IMPRESSION: Emphysematous change with no acute cardiopulmonary abnormality identified. Head CT: No acute intracranial process (1) Hypertension Hypertension type: essential hypertension Qualified Code(s): I10 - Essential (primary) hypertension
[2021-11-10 13:41] LABS: BUN Creatinine Ratio 12.7 (10-20); Calcium 7.5 mg/dl (8.5-10.1); Creatinine Clr Calc Pharmacy 145.9 ml/min; Est GFR (African American) 134.1 ml/min; Est GFR (Non-African American) 115.7 ml/min; Potassium 2.8 mmol/L (3.5-5.1)
[2021-11-10] MEDS ORDERED: amLODIPine BESYLATE 5 MG TAB PO ONE (14:31)
[2021-11-10] MEDS ORDERED: POTASSIUM CHLORIDE 40 MEQ in DEXTROSE 5% 1,000 ML IV SCH (15:00)
[2021-11-10] MEDS: POTASSIUM CHLORIDE 10 MEQ TABCR PO SCH ×2 (15:15→16:03)
[2021-11-10 18:29] LABS: BUN Creatinine Ratio 11.1 (10-20); Calcium 8.1 mg/dl (8.5-10.1); Creatinine Clr Calc Pharmacy 127.4 ml/min; Est GFR (African American) 126.8 ml/min; Est GFR (Non-African American) 109.4 ml/min; Phosphorus 2.4 mg/dl (2.5-4.9); Potassium 3.2 mmol/L (3.5-5.1)
[2021-11-11 01:55] LABS: Anion Gap 9 (3-11); BUN Creatinine Ratio 13.7 (10-20); Blood Urea Nitrogen 7 mg/dl (6-23); Calcium 7.8 mg/dl (8.5-10.1); Carbon Dioxide 21 mmol/L (21-32); Chloride 96 mmol/L (98-107); Creatinine Clr Calc Pharmacy 157.3 ml/min; Est GFR (African American) 138.3 ml/min; Est GFR (Non-African American) 119.3 ml/min; Glucose 112 mg/dl (70-99(Fasting)); Sodium 126 mmol/L (136-145)
[2021-11-11] MEDS ORDERED: POTASSIUM CHLORIDE CRTAB 20 MEQ TABCR PO STA (03:35)
[2021-11-11] MEDS ORDERED: POTASSIUM CHLORIDE 20 MEQ/15 ML UDC PO STA (04:34)
[2021-11-11 06:17] LABS: Basophils # (auto) 0.05 K/uL (0-0.2); Basophils % (auto) 0.6 %; Eosinophils # (auto) 0.27 K/uL (0-0.5); Eosinophils % (auto) 3.1 %; Hematocrit (blood only) 32.6 % (42-52); Hemoglobin 10.9 g/dL (14.0-18.0); Immature Granulocytes # (auto) 0.04 K/uL (0.00-0.02); Immature Granulocytes % (auto) 0.5 %; Lymphocytes # (auto) 2.63 K/uL (1.2-3.4); Lymphocytes % (auto) 30.3 %; Mean Corpuscular Hemoglobin 30.6 pg (25-34); Mean Corpuscular Hgb Conc 33.4 g/dL (32-36); Mean Corpuscular Volume 91.6 fL (80-100); Monocytes # (auto) 1.43 K/uL (0.11-0.59); Monocytes % (auto) 16.5 %; Neutrophils # (auto) 4.27 K/uL (1.4-6.5); Platelet Count 378 K/uL (130-400); RDW Standard Deviation 52.5 fL (36.4-46.3); Red Blood Count 3.56 M/uL (4.7-6.1); White Blood Count 8.69 K/uL (4.8-10.8)
[2021-11-11 06:47] LABS: BUN Creatinine Ratio 9.8 (10-20); Calcium 8.2 mg/dl (8.5-10.1); Creatinine Clr Calc Pharmacy 157.3 ml/min; Est GFR (African American) 138.3 ml/min; Est GFR (Non-African American) 119.3 ml/min
--- NOTE | 2021-11-11 07:11 | Hospitalist Progress Note ---
Date of Service November 11, 2021 Assessment & Plan (1) Syncope and collapse: Plan: Likely secondary to orthostasis given hypotension on arrival, and alcohol intoxication Rule out structural [employer] pathology, cardiac dysfunction CT head -unremarkable, hx old CVA on CAT scan TTE RE syncope -there is mild concentric LVH. LV wall motion is normal. LV systolic function is normal. EF 55 to 60%. Aortic valve is bicuspid. There is no significant aortic regurg. Aortic stenosis is absent. There is a trace to small amount of loculated pericardial fluid adjacent to the right ventricular free wall. There are no echocardiographic indications of cardiac tamponade. Aortic root is suboptimally visualized but appears moderately dilated, 4.7 cm Acute on chronic hyponatremia Multifactorial: Hypovolemia, alcohol abuse Careful correction of sodium Nephrology following Hypokalemia Replace potassium Alcohol abuse ELISE S, DT precautions Hx of HTN, hypotensive on admission Medical telemetry Appropriate to hold antihypertensives initially given hypotension Now BP normal/high, adjust meds - amlodipine 5 mg hx ambulatory dysfunction PT OT eval history of esophageal stenosis per records chronic anemia, hemoglobin at baseline past tobacco abuse DVT prophylaxis SCDs Full code Admission and Anticipated Discharge Date Admission Date: November 10, 2021 Subjective Patient seen in follow-up of hyponatremia, alcohol abuse, weakness Currently feeling much better. Yesterday he was very weak, now he is standing up, and is asking about going for a walk in the hallway Denies chest pain shortness of breath, fevers, chills, abdominal pain nausea or vomiting Review of Systems Review of Systems: All systems reviewed & are unremarkable except as noted in Subjective Physical Exam Physical Exam: GENERAL: WD/WN M i n NAD hard of hear ing HEENT: NC/AT. EOMI. Partial zainab pecia, bespectacle d, pale palpebral conjunctivae NECK : Supple, no tend erness CHEST : CT A, no tenderness HEART : RRR, no ob vious murmurs ABD OMEN: Some distent ion, nontender EX TREMITIES : no LE swelling, no LE t enderness NEUROLO GIC : Coherent, no facial asymmetry, hard of hearing, moves extremities SKIN: Pallor, wa rm Results & Data Results & Data ([facility]) Vital Signs (Past 12 Hours) Vital Signs Temp Pulse Pulse Resp BP Pulse Ox 11/11/21 05:50 36.8 C 76 22 153/88 H 99 04/28/22 03:03 37.1 C 74 20 146/80 H 99 11/10/21 23:11 78 11/10/21 22:57 36.5 C 79 18 163/91 H 100 11/10/21 19:12 37.4 C 94 H 18 144/81 H 100 Laboratory Results 11/11/21 11/11/21 11/11/21 Range/Units 05:45 05:45 01:55 WBC 8.69 (4.8-10.8) K/uL RBC 3.56 L (4.7-6.1) M/uL Hgb 10.9 L (14.0-18.0) g/dL Hct 32.6 L (42-52) % MCV 91.6 (80-100) fL MCH 30.6 (25-34) pg MCHC 33.4 (32-36) g/dL RDW Std Deviation 52.5 H (36.4-46.3) fL RDW Coeff of Luis 16.0 H (11.5-14.5) % Plt Count 378 (130-400) K/uL MPV 9.0 (7.4-10.4) fL Immature Gran % (Auto) 0.5 % Neut % (Auto) 49.0 % Lymph % (Auto) 30.3 % Rawlins % (Auto) 16.5 % Eos % (Auto) 3.1 % Baso % (Auto) 0.6 % Neut # (Auto) 4.27 (1.4-6.5) K/uL Lymph # (Auto) 2.63 (1.2-3.4) K/uL Rawlins # (Auto) 1.43 H (0.11-0.59) K/uL Eos # (Auto) 0.27 (0-0.5) K/uL Baso # (Auto) 0.05 (0-0.2) K/uL Immature Gran # (Auto) 0.04 H (0.00-0.02) K/uL Sodium 131 L (136-145) mmol/L Potassium 4.0 3.5 (3.5-5.1) mmol/L Chloride 99 (98-107) mmol/L Carbon Dioxide 25 (21-32) mmol/L Anion Gap 7 (3-11) BUN 5 L (6-23) mg/dl Creatinine 0.51 L (0.6-1.4) mg/dl Est Cr Clr Drug Dosing 157.3 ml/min Est GFR ( Amer) 138.3 ml/min Est GFR (Non-Af Amer) 119.3 ml/min BUN/Creatinine Ratio 9.8 L (10-20) Glucose 105 H (70-99(Fasting)) mg/dl Osmolality (280-300) mOsm/kg Calcium 8.2 L (8.5-10.1) mg/dl Phosphorus (2.5-4.9) mg/dl Magnesium (1.7-2.4) mg/dl TSH (0.300-4.500) uIu/ml Urine Color Urine Appearance (Clear) Urine pH (4.5-7.5) Ur Specific Bard (1.000-1.030) Urine Protein (Negative) Urine Glucose (UA) (Negative) Urine Ketones (Negative) Urine Blood (Negative) Urine Nitrite (Negative) Urine Bilirubin (Negative) Urine Urobilinogen (Negative) Ur Leukocyte Esterase (Negative) Urine Osmolality (500-800) mOsm/kg Ur Random Sodium mmol/L SARS-CoV-2, RNA, NAAT (NEGATIVE) 11/11/21 11/10/21 11/10/21 Range/Units 00:57 17:50 13:04 WBC (4.8-10.8) K/uL RBC (4.7-6.1) M/uL Hgb (14.0-18.0) g/dL Hct (42-52) % MCV (80-100) fL MCH (25-34) pg MCHC (32-36) g/dL RDW Std Deviation (36.4-46.3) fL RDW Coeff of Luis (11.5-14.5) % Plt Count (130-400) K/uL MPV (7.4-10.4) fL Immature Gran % (Auto) % Neut % (Auto) % Lymph % (Auto) % Rawlins % (Auto) % Eos % (Auto) % Baso % (Auto) % Neut # (Auto) (1.4-6.5) K/uL Lymph # (Auto) (1.2-3.4) K/uL Rawlins # (Auto) (0.11-0.59) K/uL Eos # (Auto) (0-0.5) K/uL Baso # (Auto) (0-0.2) K/uL Immature Gran # (Auto) (0.00-0.02) K/uL Sodium 126 L 133 L 133 L (136-145) mmol/L Potassium TNP 3.2 L 2.8 L (3.5-5.1) mmol/L Chloride 96 L 98 98 (98-107) mmol/L Carbon Dioxide 21 26 27 (21-32) mmol/L Anion Gap 9 9 8 (3-11) BUN 7 7 7 (6-23) mg/dl Creatinine 0.51 L 0.63 0.55 L (0.6-1.4) mg/dl Est Cr Clr Drug Dosing 157.3 127.4 145.9 ml/min Est GFR ( Amer) 138.3 126.8 134.1 ml/min Est GFR (Non-Af Amer) 119.3 109.4 115.7 ml/min BUN/Creatinine Ratio 13.7 11.1 12.7 (10-20) Glucose 112 H 113 H 142 H (70-99(Fasting)) mg/dl Osmolality (280-300) mOsm/kg Calcium 7.8 L 8.1 L 7.5 L (8.5-10.1) mg/dl Phosphorus 2.4 L (2.5-4.9) mg/dl Magnesium (1.7-2.4) mg/dl TSH (0.300-4.500) uIu/ml Urine Color Urine Appearance (Clear) Urine pH (4.5-7.5) Ur Specific Bard (1.000-1.030) Urine Protein (Negative) Urine Glucose (UA) (Negative) Urine Ketones (Negative) Urine Blood (Negative) Urine Nitrite (Negative) Urine Bilirubin (Negative) Urine Urobilinogen (Negative) Ur Leukocyte Esterase (Negative) Urine Osmolality (500-800) mOsm/kg Ur Random Sodium mmol/L SARS-CoV-2, RNA, NAAT (NEGATIVE) 11/10/21 11/10/21 11/10/21 Range/Units 12:21 07:49 07:49 WBC (4.8-10.8) K/uL RBC (4.7-6.1) M/uL Hgb (14.0-18.0) g/dL Hct (42-52) % MCV (80-100) fL MCH (25-34) pg MCHC (32-36) g/dL RDW Std Deviation (36.4-46.3) fL RDW Coeff of Luis (11.5-14.5) % Plt Count (130-400) K/uL MPV (7.4-10.4) fL Immature Gran % (Auto) % Neut % (Auto) % Lymph % (Auto) % Rawlins % (Auto) % Eos % (Auto) % Baso % (Auto) % Neut # (Auto) (1.4-6.5) K/uL Lymph # (Auto) (1.2-3.4) K/uL Rawlins # (Auto) (0.11-0.59) K/uL Eos # (Auto) (0-0.5) K/uL Baso # (Auto) (0-0.2) K/uL Immature Gran # (Auto) (0.00-0.02) K/uL Sodium 134 L (136-145) mmol/L Potassium (3.5-5.1) mmol/L Chloride (98-107) mmol/L Carbon Dioxide (21-32) mmol/L Anion Gap (3-11) BUN (6-23) mg/dl Creatinine (0.6-1.4) mg/dl Est Cr Clr Drug Dosing ml/min Est GFR ( Amer) ml/min Est GFR (Non-Af Amer) ml/min BUN/Creatinine Ratio (10-20) Glucose (70-99(Fasting)) mg/dl Osmolality (280-300) mOsm/kg Calcium (8.5-10.1) mg/dl Phosphorus (2.5-4.9) mg/dl Magnesium 2.0 (1.7-2.4) mg/dl TSH 0.573 (0.300-4.500) uIu/ml Urine Color Urine Appearance (Clear) Urine pH (4.5-7.5) Ur Specific Bard (1.000-1.030) Urine Protein (Negative) Urine Glucose (UA) (Negative) Urine Ketones (Negative) Urine Blood (Negative) Urine Nitrite (Negative) Urine Bilirubin (Negative) Urine Urobilinogen (Negative) Ur Leukocyte Esterase (Negative) Urine Osmolality (500-800) mOsm/kg Ur Random Sodium mmol/L SARS-CoV-2, RNA, NAAT (NEGATIVE) 11/10/21 11/10/21 11/10/21 Range/Units 07:49 07:31 07:31 WBC (4.8-10.8) K/uL RBC (4.7-6.1) M/uL Hgb (14.0-18.0) g/dL Hct (42-52) % MCV (80-100) fL MCH (25-34) pg MCHC (32-36) g/dL RDW Std Deviation (36.4-46.3) fL RDW Coeff of Luis (11.5-14.5) % Plt Count (130-400) K/uL MPV (7.4-10.4) fL Immature Gran % (Auto) % Neut % (Auto) % Lymph % (Auto) % Rawlins % (Auto) % Eos % (Auto) % Baso % (Auto) % Neut # (Auto) (1.4-6.5) K/uL Lymph # (Auto) (1.2-3.4) K/uL Rawlins # (Auto) (0.11-0.59) K/uL Eos # (Auto) (0-0.5) K/uL Baso # (Auto) (0-0.2) K/uL Immature Gran # (Auto) (0.00-0.02) K/uL Sodium (136-145) mmol/L Potassium (3.5-5.1) mmol/L Chloride (98-107) mmol/L Carbon Dioxide (21-32) mmol/L Anion Gap (3-11) BUN (6-23) mg/dl Creatinine (0.6-1.4) mg/dl Est Cr Clr Drug Dosing ml/min Est GFR ( Amer) ml/min Est GFR (Non-Af Amer) ml/min BUN/Creatinine Ratio (10-20) Glucose (70-99(Fasting)) mg/dl Osmolality 332 H (280-300) mOsm/kg Calcium (8.5-10.1) mg/dl Phosphorus (2.5-4.9) mg/dl Magnesium (1.7-2.4) mg/dl TSH (0.300-4.500) uIu/ml Urine Color Urine Appearance (Clear) Urine pH (4.5-7.5) Ur Specific Bard (1.000-1.030) Urine Protein (Negative) Urine Glucose (UA) (Negative) Urine Ketones (Negative) Urine Blood (Negative) Urine Nitrite (Negative) Urine Bilirubin (Negative) Urine Urobilinogen (Negative) Ur Leukocyte Esterase (Negative) Urine Osmolality 131 L (500-800) mOsm/kg Ur Random Sodium < 10 mmol/L SARS-CoV-2, RNA, NAAT (NEGATIVE) 11/10/21 11/10/21 Range/Units 07:31 06:40 WBC (4.8-10.8) K/uL RBC (4.7-6.1) M/uL Hgb (14.0-18.0) g/dL Hct (42-52) % MCV (80-100) fL MCH (25-34) pg MCHC (32-36) g/dL RDW Std Deviation (36.4-46.3) fL RDW Coeff of Luis (11.5-14.5) % Plt Count (130-400) K/uL MPV (7.4-10.4) fL Immature Gran % (Auto) % Neut % (Auto) % Lymph % (Auto) % Rawlins % (Auto) % Eos % (Auto) % Baso % (Auto) % Neut # (Auto) (1.4-6.5) K/uL Lymph # (Auto) (1.2-3.4) K/uL Rawlins # (Auto) (0.11-0.59) K/uL Eos # (Auto) (0-0.5) K/uL Baso # (Auto) (0-0.2) K/uL Immature Gran # (Auto) (0.00-0.02) K/uL Sodium (136-145) mmol/L Potassium (3.5-5.1) mmol/L Chloride (98-107) mmol/L Carbon Dioxide (21-32) mmol/L Anion Gap (3-11) BUN (6-23) mg/dl Creatinine (0.6-1.4) mg/dl Est Cr Clr Drug Dosing ml/min Est GFR ( Amer) ml/min Est GFR (Non-Af Amer) ml/min BUN/Creatinine Ratio (10-20) Glucose (70-99(Fasting)) mg/dl Osmolality (280-300) mOsm/kg Calcium (8.5-10.1) mg/dl Phosphorus (2.5-4.9) mg/dl Magnesium (1.7-2.4) mg/dl TSH (0.300-4.500) uIu/ml Urine Color Yellow Urine Appearance Clear (Clear) Urine pH 6.5 (4.5-7.5) Ur Specific Bard 1.003 (1.000-1.030) Urine Protein Negative (Negative) Urine Glucose (UA) Negative (Negative) Urine Ketones Negative (Negative) Urine Blood Negative (Negative) Urine Nitrite Negative (Negative) Urine Bilirubin Negative (Negative) Urine Urobilinogen Negative (Negative) Ur Leukocyte Esterase Negative (Negative) Urine Osmolality (500-800) mOsm/kg Ur Random Sodium mmol/L SARS-CoV-2, RNA, NAAT NEGATIVE (NEGATIVE) Medications Administered Current Inpatient Medications Acetaminophen (Acetaminophen 325 Mg Tab) 650 mg PO Q4H PRN PRN Reason: Pain or Fever Stop: 12/10/21 11:52 Last Admin: 11/10/21 23:44 Dose: 650 mg Documented by: Folic Acid (Folic Acid 1 Mg Tab) [facility] [place]: 12/10/21 11:52 Last Admin: 11/10/21 12:39 Dose: 1 mg Documented by: Promethazine HCl 12.5 mg/ (Sodium Chloride) 50.5 mls @ 202 mls/hr IV Q6H PRN PRN Reason: Nausea And Vomiting Stop: 12/10/21 11:52 Last Infusion: 11/11/21 03:36 Dose: Infused Documented by: Lorazepam (Lorazepam 2 Mg/1 Ml Vial) 1 mg IV UD PRN; Protocol PRN Reason: EtOH Withdrawl AWSS Score 6,7 Stop: 12/10/21 11:52 Last Admin: 11/11/21 05:59 Dose: 1 mg Documented by: Lorazepam (Lorazepam 2 Mg/1 Ml Vial) 2 mg IV UD PRN; Protocol PRN Reason: EtOH Withdrawl AWSS Score 8,9 Stop: 12/10/21 11:52 Lorazepam (Lorazepam 2 Mg/1 Ml Vial) 3 mg IV ONCE PRN; Protocol PRN Reason: EtOH Withdrawl AWSS Score >=10 Stop: 12/10/21 11:52 Multivitamins (Multivitamin Tab) 1 tab PO QAM [facility] Stop: 12/10/21 11:52 Last Admin: 11/10/21 12:39 Dose: 1 tab Documented by: Oxycodone HCl (Oxycodone Hcl Ir 5 Mg Tab (Immediate Release)) 5 mg PO Q4H PRN PRN Reason: Pain Stop: 11/24/21 11:52 Sodium Chloride (Sodium Chloride 1 Gm Tablet) 1 gm PO BID [facility] Stop: 12/10/21 11:52 Last Admin: 11/10/21 12:39 Dose: 1 gm Documented by: Thiamine HCl (Thiamine Hcl 100 Mg Tab) 100 mg PO QAM [facility] Stop: 12/11/21 08:59
[2021-11-11 08:44] LABS: BUN Creatinine Ratio 9.6 (10-20); Calcium 8.4 mg/dl (8.5-10.1); Creatinine Clr Calc Pharmacy 154.3 ml/min; Est GFR (African American) 137.2 ml/min; Est GFR (Non-African American) 118.4 ml/min; Potassium 3.6 mmol/L (3.5-5.1)
[2021-11-11] MEDS: THIAMINE HCL 100 MG TAB PO SCH (08:52)
[2021-11-11] MEDS: FOLIC ACID 1 MG TAB PO SCH (08:52)
[2021-11-11] MEDS: MULTIVITAMIN TAB PO SCH (08:52)
--- NOTE | 2021-11-11 09:49 | Nephrology Progress Note ---
Date of Service November 11, 2021 Assessment & Plan (1) Chronic hyponatremia: Plan: Presented w/ serum sodium 126 on 11/10 at 0100 and K 3.2. this am he is sNa 133. Goal sNa is wnl tomorrow am. -re check bmp 1600 ordered > recommend replete K at that time; K is ok; sNa is 132 -maintain eukalemia >continue to hold salt tabs which can worsen HTN and sNa improving w/o them -as of this am on regular diet and w/ 2L FR (pt w/ hx of disregarding FR) will sign off; NEPHRO D/C recommendations -2L fluid limit now and at d/c -bmp weekly x 3 w/ labs to be followed by PCP -would NOT resume salt tabs at d/c -f/u w/ nephro prn (2) Hypertension: Plan: transient lability/hypotension past 36 hr but relatively hypertensive likely multifactorial -salt tabs on hold -EtOH dependent > so some HTN may represent withdrawal process -cont amlodipine 5 mg here and monitor for withdrawal EtOH (3) Alcohol use disorder: Plan: root cause of/contributor to low Na, HTN, frequent falls Admission and Anticipated Discharge Date Admission Date: November 10, 2021 Subjective sodium improving to 133 this am; had 40 po k this am Review of Systems Review of Systems: All systems reviewed & are unremarkable except as noted in Subjective Physical Exam Constitutional: well developed, + thin, + frail appearing and cooperative (to a degree); no acute distress Eyes: EOM intact bilaterally ENMT: Ears: no external ear abnormality Nose: no external nose abnormality Mouth: + dry oral mucous membranes ANDREAFSKI L ear Neck: no nuchal rigidity Respiratory: normal respiratory effort Auscultation: + diminished lung sounds Cardiovascular: RRR, no murmur, no edema Gastrointestinal (Abdomen): Inspection/Auscultation: normal bowel sounds Percussion/Palpation: abdomen soft; abdomen nontender Musculoskeletal: Extremities: strength 5/5 throughout Skin: no rashes, warm and dry Neurologic: cortez, fluent speech, no tremor Psychiatric: Orientation: oriented x 3 Results & Data ([facility]) Vital Signs (Past 12 Hours) Vital Signs Temp Pulse Pulse Resp BP Pulse Ox 11/11/21 05:50 36.8 C 76 22 153/88 H 99 11/11/21 03:03 37.1 C 74 20 146/80 H 99 04/27/22 23:11 78 11/10/21 22:57 36.5 C 79 18 163/91 H 100 Laboratory Results 11/11/21 05:45 11/11/21 07:33 (1) Hypertension Hypertension type: essential hypertension Qualified Code(s): I10 - Essential (primary) hypertension
[2021-11-11] MEDS: ACETAMINOPHEN 325 MG TAB PO PRN ×2 (16:28→23:39)
[2021-11-11 17:32] LABS: BUN Creatinine Ratio 11.1 (10-20); Calcium 8.6 mg/dl (8.5-10.1); Creatinine Clr Calc Pharmacy 127.4 ml/min; Est GFR (African American) 126.8 ml/min; Est GFR (Non-African American) 109.4 ml/min; Potassium 4.5 mmol/L (3.5-5.1)
[2021-11-12 08:08] LABS: Hematocrit (blood only) 32.2 % (42-52); Hemoglobin 10.6 g/dL (14.0-18.0); Mean Corpuscular Hemoglobin 30.9 pg (25-34); Mean Corpuscular Hgb Conc 32.9 g/dL (32-36); Mean Corpuscular Volume 93.9 fL (80-100); Mean Platelet Volume 8.7 fL (7.4-10.4); Platelet Count 387 K/uL (130-400); RDW Coefficient of Variation 16.1 % (11.5-14.5); RDW Standard Deviation 54.9 fL (36.4-46.3); Red Blood Count 3.43 M/uL (4.7-6.1); White Blood Count 6.94 K/uL (4.8-10.8)
[2021-11-12 08:22] LABS: BUN Creatinine Ratio 8.3 (10-20); Calcium 8.2 mg/dl (8.5-10.1); Creatinine Clr Calc Pharmacy 167.6 ml/min; Est GFR (African American) 141.8 ml/min; Est GFR (Non-African American) 122.3 ml/min; Magnesium 1.8 mg/dl (1.7-2.4); Phosphorus 3.4 mg/dl (2.5-4.9); Potassium 3.3 mmol/L (3.5-5.1)
[2021-11-12] MEDS: MULTIVITAMIN TAB PO SCH (08:41)
[2021-11-12] MEDS: FOLIC ACID 1 MG TAB PO SCH (08:41)
[2021-11-12] MEDS: THIAMINE HCL 100 MG TAB PO SCH (08:41)
[2021-11-12] MEDS ORDERED: PNEUMOCOCCAL POLYSACCHARIDES 25 MCG/0.5 ML VIAL/SYR IM ONE (10:00)
--- NOTE | 2021-11-12 15:05 | Hospitalist Progress Note ---
Date of Service November 12, 2021 Assessment & Plan (1) Syncope and collapse: Plan: Likely secondary to orthostasis given hypotension on arrival, and alcohol intoxication Rule out structural [employer] RE[employer]ATIVE pathology, cardiac dysfunction CT head -unremarkable, hx old CVA on CAT scan TTE RE syncope -there is mild concentric LVH. LV wall motion is normal. LV systolic function is normal. EF 55 to 60%. Aortic valve is bicuspid. There is no significant aortic regurg. Aortic stenosis is absent. There is a trace to small amount of loculated pericardial fluid adjacent to the right ventricular free wall. There are no echocardiographic indications of cardiac tamponade. Aortic root is suboptimally visualized but appears moderately dilated, 4.7 cm Acute on chronic hyponatremia Multifactorial: Hypovolemia, alcohol abuse Careful correction of sodium Nephrology following DC recs FR 2 L HOLD salt tablets amlodipine 5 mg daily for HTN Hypokalemia Replace potassium Alcohol abuse AWSS, DT precautions Hx of HTN, hypotensive on admission Medical telemetry Appropriate to hold antihypertensives initially given hypotension Now BP normal/high, adjust meds - amlodipine 5 mg hx ambulatory dysfunction PT OT eval history of esophageal stenosis per records chronic anemia, hemoglobin at baseline past tobacco abuse DVT prophylaxis SCDs Full code Admission and Anticipated Discharge Date Admission Date: November 10, 2021 Subjective Patient seen in follow-up of hyponatremia, alcohol abuse, weakness Currently feeling better overall but says that he felt more energetic yesterday. Denies chest pain shortness of breath, fevers, chills, abdominal pain nausea or vomiting Review of Systems Review of Systems: All systems reviewed & are unremarkable except as noted in Subjective Physical Exam Physical Exam: GENERAL: WD/WN M i n NAD hard of hear ing HEENT: NC/AT. EOMI. Partial zainab pecia, bespectacle d, pale palpebral conjunctivae NECK : Supple, no tend erness CHEST : CT A, no tenderness HEART : RRR, no ob vious murmurs ABD OMEN: Some distent ion, nontender EX TREMITIES : no LE swelling, no LE t enderness NEUROLO GIC : Coherent, no facial asymmetry, hard of hearing, moves extremities SKIN: Pallor, wa rm Results & Data Results & Data ([facility]) Vital Signs (Past 12 Hours) Vital Signs Temp Pulse Pulse Resp BP Pulse Ox 11/12/21 10:50 37.1 C 77 18 145/90 H 94 04/29/22 10:06 78 11/12/21 07:20 36.8 C 81 18 133/82 96 11/12/21 06:37 36.6 C 63 20 148/82 H 94 11/12/21 03:34 37.1 C 75 20 173/93 H 97 Laboratory Results 11/12/21 11/12/21 11/11/21 Range/Units 06:43 06:43 16:45 WBC 6.94 (4.8-10.8) K/uL RBC 3.43 L (4.7-6.1) M/uL Hgb 10.6 L (14.0-18.0) g/dL Hct 32.2 L (42-52) % MCV 93.9 (80-100) fL MCH 30.9 (25-34) pg MCHC 32.9 (32-36) g/dL RDW Std Deviation 54.9 H (36.4-46.3) fL RDW Coeff of Luis 16.1 H (11.5-14.5) % Plt Count 387 (130-400) K/uL MPV 8.7 (7.4-10.4) fL Sodium 133 L 132 L (136-145) mmol/L Potassium 3.3 L D 4.5 D (3.5-5.1) mmol/L Chloride 99 99 (98-107) mmol/L Carbon Dioxide 28 25 (21-32) mmol/L Anion Gap 6 8 (3-11) BUN 4 L 7 (6-23) mg/dl Creatinine 0.48 L 0.63 (0.6-1.4) mg/dl Est Cr Clr Drug Dosing 167.6 127.4 ml/min Est GFR ( Amer) 141.8 126.8 ml/min Est GFR (Non-Af Amer) 122.3 109.4 ml/min BUN/Creatinine Ratio 8.3 L 11.1 (10-20) Glucose 93 102 H (70-99(Fasting)) mg/dl Calcium 8.2 L 8.6 (8.5-10.1) mg/dl Phosphorus 3.4 D (2.5-4.9) mg/dl Magnesium 1.8 (1.7-2.4) mg/dl Medications Administered Current Inpatient Medications Acetaminophen (Acetaminophen 325 Mg Tab) 650 mg PO Q4H PRN PRN Reason: Pain or Fever Stop: 12/10/21 11:52 Last Admin: 11/11/21 23:39 Dose: 650 mg Documented by: Folic Acid (Folic Acid 1 Mg Tab) [facility] [place] [place] Stop: 12/10/21 11:52 Last Admin: 11/12/21 08:41 Dose: 1 mg Documented by: Promethazine HCl 12.5 mg/ (Sodium Chloride) 50.5 mls @ 202 mls/hr IV Q6H PRN PRN Reason: Nausea And Vomiting Stop: 12/10/21 11:52 Last Infusion: 11/11/21 03:36 Dose: Infused Documented by: Lorazepam (Lorazepam 2 Mg/1 Ml Vial) 1 mg IV UD PRN; Protocol PRN Reason: EtOH Withdrawl AWSS Score 6,7 Stop: 12/10/21 11:52 Last Admin: 11/11/21 05:59 Dose: 1 mg Documented by: Lorazepam (Lorazepam 2 Mg/1 Ml Vial) 2 mg IV UD PRN; Protocol PRN Reason: EtOH Withdrawl AWSS Score 8,9 Stop: 12/10/21 11:52 Lorazepam (Lorazepam 2 Mg/1 Ml Vial) 3 mg IV ONCE PRN; Protocol PRN Reason: EtOH Withdrawl AWSS Score >=10 Stop: 12/10/21 11:52 Multivitamins (Multivitamin Tab) 1 tab PO [facility] Stop: 12/10/21 11:52 Last Admin: 11/12/21 08:41 Dose: 1 tab Documented by: Oxycodone HCl (Oxycodone Hcl Ir 5 Mg Tab (Immediate Release)) 5 mg PO Q4H PRN PRN Reason: Pain Stop: 11/24/21 11:52 Potassium Chloride (Potassium Chloride Crtab 20 Meq Tabcr) 40 meq PO NOW STA Stop: 11/12/21 15:05 Sodium Chloride (Sodium Chloride 1 Gm Tablet) 1 gm PO BID [facility] Stop: 12/10/21 11:52 Last Admin: 11/10/21 12:39 Dose: 1 gm Documented by: Thiamine HCl (Thiamine Hcl 100 Mg Tab) [facility] [place] Stop: 12/11/21 08:59 Last Admin: 11/12/21 08:41 Dose: 100 mg Documented by:
[2021-11-12] MEDS ORDERED: POTASSIUM CHLORIDE CRTAB 20 MEQ TABCR PO STA (15:25)
[2021-11-12] MEDS: ACETAMINOPHEN 325 MG TAB PO PRN (21:57)
[2021-11-13] MEDS: ACETAMINOPHEN 325 MG TAB PO PRN ×2 (07:31→13:33)
[2021-11-13] MEDS: FOLIC ACID 1 MG TAB PO SCH (07:32)
[2021-11-13] MEDS: MULTIVITAMIN TAB PO SCH (07:32)
[2021-11-13] MEDS: THIAMINE HCL 100 MG TAB PO SCH (07:32)
--- NOTE | 2021-11-13 07:38 | Hospitalist Progress Note ---
Date of Service November 13, 2021 Assessment & Plan (1) Syncope and collapse: Plan: Likely secondary to orthostasis given hypotension on arrival, and alcohol intoxication Rule out structural [employer]OVER pathology, cardiac dysfunction CT head -unremarkable, hx old CVA on CAT scan TTE RE syncope -there is mild concentric LVH. LV wall motion is normal. LV systolic function is normal. EF 55 to 60%. Aortic valve is bicuspid. There is no significant aortic regurg. Aortic stenosis is absent. There is a trace to small amount of loculated pericardial fluid adjacent to the right ventricular free wall. There are no echocardiographic indications of cardiac tamponade. Aortic root is suboptimally visualized but appears moderately dilated, 4.7 cm Acute on chronic hyponatremia Multifactorial: Hypovolemia, alcohol abuse Careful correction of sodium Nephrology following DC recs FR 2 L HOLD salt tablets amlodipine 5 mg daily for HTN check BMP weekly x3 - to follow up by PCP Hypokalemia Replace potassium Alcohol abuse AWSS, DT precautions Patient counseled about alcohol use cessation again Hx of HTN, hypotensive on admission Medical telemetry Appropriate to hold antihypertensives initially given hypotension Now BP normal/high, adjust meds - amlodipine 5 mg hx ambulatory dysfunction PT OT eval history of esophageal stenosis per records chronic anemia, hemoglobin at baseline past tobacco abuse DVT prophylaxis SCDs Full code Admission and Anticipated Discharge Date Admission Date: November 10, 2021 Subjective Patient seen in follow-up of hyponatremia, alcohol abuse, weakness Currently feeling better overall. Denies chest pain shortness of breath, fevers, chills, abdominal pain nausea or vomiting Review of Systems Review of Systems: All systems reviewed & are unremarkable except as noted in Subjective Physical Exam Physical Exam: GENERAL: WD/WN M i n NAD hard of hear ing HEENT: NC/AT. EOMI. Partial zainab pecia, bespectacle d, pale palpebral conjunctivae NECK : Supple, no tend erness CHEST : CT A, no tenderness HEART : RRR, no ob vious murmurs ABD OMEN: Some distent ion, nontender EX TREMITIES : no LE swelling, no LE t enderness NEUROLO GIC : Coherent, no facial asymmetry, hard of hearing, moves extremities SKIN: Pallor, wa rm Results & Data Results & Data ([facility]) Vital Signs (Past 12 Hours) Vital Signs Temp Pulse Pulse Resp BP Pulse Ox 11/13/21 07:26 36.8 C 80 18 151/93 H 93 11/13/21 04:00 37.2 C 90 18 173/93 H 96 11/12/21 23:32 87 11/12/21 23:00 36.9 C 87 18 148/80 H 96 Laboratory Results 11/13/21 Range/Units 05:58 Sodium 131 L (136-145) mmol/L Potassium 3.2 L (3.5-5.1) mmol/L Chloride 98 (98-107) mmol/L Carbon Dioxide 25 (21-32) mmol/L Anion Gap 8 (3-11) BUN 6 (6-23) mg/dl Creatinine 0.52 L (0.6-1.4) mg/dl Est Cr Clr Drug Dosing 154.7 ml/min Est GFR ( Amer) 137.2 ml/min Est GFR (Non-Af Amer) 118.4 ml/min BUN/Creatinine Ratio 11.5 (10-20) Glucose 109 H (70-99(Fasting)) mg/dl Calcium 8.0 L (8.5-10.1) mg/dl Phosphorus 3.3 (2.5-4.9) mg/dl Magnesium 1.6 L (1.7-2.4) mg/dl Medications Administered Current Inpatient Medications Acetaminophen (Acetaminophen 325 Mg Tab) 650 mg PO Q4H PRN PRN Reason: Pain or Fever Stop: 12/10/21 11:52 Last Admin: 11/13/21 07:31 Dose: 650 mg Documented by: Folic Acid (Folic Acid 1 Mg Tab) 1 mg PO [facility] Stop: 12/10/21 11:52 Last Admin: 11/13/21 07:32 Dose: 1 mg Documented by: Promethazine HCl 12.5 mg/ (Sodium Chloride) 50.5 mls @ 202 mls/hr IV Q6H PRN PRN Reason: Nausea And Vomiting Stop: 12/10/21 11:52 Last Infusion: 11/11/21 03:36 Dose: Infused Documented by: Lorazepam (Lorazepam 2 Mg/1 Ml Vial) 1 mg IV UD PRN; Protocol PRN Reason: EtOH Withdrawl AWSS Score 6,7 Stop: 12/10/21 11:52 Last Admin: 11/11/21 05:59 Dose: 1 mg Documented by: Lorazepam (Lorazepam 2 Mg/1 Ml Vial) 2 mg IV UD PRN; Protocol PRN Reason: EtOH Withdrawl AWSS Score 8,9 Stop: 12/10/21 11:52 Lorazepam (Lorazepam 2 Mg/1 Ml Vial) 3 mg IV ONCE PRN; Protocol PRN Reason: EtOH Withdrawl AWSS Score >=10 Stop: 12/10/21 11:52 Multivitamins (Multivitamin Tab) 1 tab PO [facility] Stop: 12/10/21 11:52 Last Admin: 11/13/21 07:32 Dose: 1 tab Documented by: Oxycodone HCl (Oxycodone Hcl Ir 5 Mg Tab (Immediate Release)) 5 mg PO Q4H PRN PRN Reason: Pain Stop: 11/24/21 11:52 Sodium Chloride (Sodium Chloride 1 Gm Tablet) 1 gm PO BID [facility] Stop: 12/10/21 11:52 Last Admin: 11/10/21 12:39 Dose: 1 gm Documented by: Thiamine HCl (Thiamine Hcl 100 Mg Tab) 100 mg PO [facility] Stop: 12/11/21 08:59 Last Admin: 11/13/21 07:32 Dose: 100 mg Documented by:
[2021-11-13 08:03] LABS: BUN Creatinine Ratio 11.5 (10-20); Creatinine Clr Calc Pharmacy 154.7 ml/min; Est GFR (African American) 137.2 ml/min; Est GFR (Non-African American) 118.4 ml/min; Magnesium 1.6 mg/dl (1.7-2.4); Phosphorus 3.3 mg/dl (2.5-4.9); Potassium 3.2 mmol/L (3.5-5.1)
[2021-11-13] MEDS ORDERED: POTASSIUM CHLORIDE CRTAB 20 MEQ TABCR PO STA (09:08)
[2021-11-13] MEDS ORDERED: MAGNESIUM SULFATE / D5W 1 GM/100 ML BAG IV ONE (09:09)
--- NOTE | 2021-11-13 11:35 | Discharge Summary ---
Date of Service November 13, 2021 Admission HPI Per Admitting Provider History obtained from patient and records. History somewhat limited from patient secondary to marked hearing impairment. 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 Last confinement 2 weeks ago for ambulatory dysfunction and recurrent falls. Patient discharged on amlodipine for blood pressure control. Patient became intoxicated at a local bar and unable to walk when staff asked him to leave. Patient remembers collapsing and waking up in the ER. Patient denies headache, chest pain, SOB. EMS called to bring the patient to ER for evaluation. Upon waking up, patient realized that he does not feel safe going home. MEDICAL HISTORY: As above. SURGICAL HISTORY: Hernia surgery., Hip surgery, right elbow surgery. FAMILY HISTORY: Hypertension. PERSONAL AND SOCIAL HISTORY: Past tobacco abuse. Ongoing alcohol abuse. Disabled. Admission Exam Per Admitting Provider GENERAL: uncomfortable, hard of hearing, slightly anxious, no respiratory distress SKIN: Pallor, warm HEENT: Partial alopecia, bespectacled, pale palpebral conjunctivae, no ptosis, dry buccal mucosa NECK : Supple, no tenderness CHEST : CTA, no tenderness HEART : RRR, no obvious murmurs ABDOMEN: Some distention, nontender EXTREMITIES : no LE swelling, no LE tenderness NEUROLOGIC : Coherent, no facial asymmetry, hard of hearing, gait and stance not assessed Principal Diagnosis Hyponatremia Alcohol abuse, alcohol intoxication Fall Hypertension Discharge Exam GENERAL: WD/WN M in NAD hard of hearing HEENT: NC/AT. EOMI. Partial alopecia, bespectacled, pale palpebral conjunctivae NECK : Supple, no tenderness CHEST : CTA, no tenderness HEART : RRR, no obvious murmurs ABDOMEN: Some distention, nontender EXTREMITIES : no LE swelling, no LE tenderness NEUROLOGIC : Coherent, no facial asymmetry, hard of hearing, moves extremities SKIN: Pallor, warm Discharge Data Allergies Allergy/AdvReac Type Severity Reaction Status Date / Time hydralazine Allergy Intermediate rapid drop Verified 11/10/21 01:19 in BP/Vomiting Penicillins AdvReac Mild TIRED Verified 11/10/21 01:19 Consultations 11/10/21 06:35 ED Decision to Admit Stat 11/10/21 10:48 Consult Nephrology Routine Ordered Studies 11/10/21 07:13 CT head/brain wo con Urgent Findings: Areas of decreased attenuation are present in the periventricular and subcortical white matter bilaterally consistent with small vessel ischemic disease. Generalized cerebral atrophy with commensurate enlargement of the ventricles, sulci, and cisterns is also present. There is no acute intracranial hemorrhage or evidence of acute territorial infarction. No shift of the midline structures, mass effect, or extra-axial abnormalities are shown. Atherosclerotic calcifications are present in the intracranial segments of the internal carotid arteries. Imaged portions of the paranasal sinuses and mastoid air cells are clear. The orbits appear normal. There are no acute fractures of the calvaria or scalp swelling. Impression: No acute intracranial hemorrhage, no evidence of acute territorial infarction or other acute intracranial disease process. 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 LV wall motion is normal. LV systolic function is normal. EF 55 to 60%. Aortic valve is bicuspid. There is no significant aortic regurg. Aortic stenosis is absent. There is a trace to small amount of loculated pericardial fluid adjacent to the right ventricular free wall. There are no echocardiographic indications of cardiac tamponade. Aortic root is suboptimally visualized but appears moderately dilated, 4.7 cm Acute on chronic hyponatremia Multifactorial: Hypovolemia, alcohol abuse Careful correction of sodium Nephrology following DC recs FR 2 L HOLD salt tablets amlodipine 5 mg daily for HTN check BMP weekly x3 - to follow up by PCP Hypokalemia Replace potassium Alcohol abuse AWSS, DT precautions Patient counseled about alcohol use cessation again Hx of HTN, hypotensive on admission Medical telemetry Appropriate to hold antihypertensives initially given hypotension Now BP normal/high, adjust meds - amlodipine 5 mg hx ambulatory dysfunction PT OT eval history of esophageal stenosis per records chronic anemia, hemoglobin at baseline past tobacco abuse Total Time Total Time Spent Total Time Spent (In Minutes): 40 Discharge Plan Discharge Items Patient Disposition: Home - Self-Care Reason For Visit: HYPONATREMIA Discharge Diagnosis: Hyponatremia Alcohol abuse, alcohol intoxication Fall Hypertension Activity: Per Instructions section Non-emergency contact: Primary Care Provider Call non-emergency contact if: you have any medication questions and your symptoms worsen Follow-up/Referrals: Denis Burleson DO [Primary Care Provider] - Diet: Regular Fluids: 2000ml (8 cups) Diet Texture: Mechanical soft (ground) Addtl Attending Provider Instructions: Follow-up with your primary care doctor within 1 week. It is crucial that you completely abstain from alcohol. You will need blood work, to check on your sodium level, once a week for next 3 weeks. Your primary care doctor can order this for you. Do not take any more salt tabs. Take amlodipine 5 mg daily, instead of 10 mg daily. Continue taking your vitamins/thiamine supplements. It is crucial that you follow fluid restrictions - 2 L a day of fluid. This will help to maintain your sodium at more normal levels. Pending Studies at Discharge: No Stand-Alone Forms: My [facility] [email or web address], Smoking Cessation Medications and DC Order Prescriptions: Continued cholecalciferol (vitamin D3) [Vitamin D3] 25 mcg (1,000 unit) tablet 1,000 unit PO DAILY RF: 0 hydroxyzine HCl 25 mg tablet 25 mg PO BID PRN (Reason: Itching) RF: 0 Excedrin Extra Strength 250-250-65 mg Tablet 1 tab PO BID PRN (Reason: Pain) RF: 0 potassium chloride 20 mEq Tablet,Er Particles/Crystals 20 meq PO QAM Qty: 20 RF: 0 folic acid 1 mg Tablet 1 mg PO QAM Qty: 30 RF: 0 multivitamin with folic acid [Daily-Ifeanyi (with folic acid)] 400 mcg Tablet 1 tab PO QAM Qty: 30 RF: 0 thiamine HCl (vitamin B1) 100 mg Tablet 100 mg PO QAM Qty: 30 RF: 0 Changed amlodipine [Norvasc] 5 mg Tablet 5 mg PO QAM Qty: 30 RF: 0 Discontinued sodium chloride 1 gram tablet 1 g PO BID RF: 0 Discharge Orders: Discharge Order (Routine); Ordered 11/13/21 Ordered By: Bernardo Adkins Admission Data Admit Date/Time: 11/10/21 07:17 Attending Provider: Bernardo Adkins Admit Provider: Tung Arana Primary Care Provider: Denis Burleson Other Providers: Tung Arana
== END 2021-11-13 13:45 | disposition home or self-care (01) | DRG 312 ==
LOC: ED 00:47 → 2N 07:17

== ENCOUNTER 2021-12-04 11:29 | Inpatient (IN) ==
--- NOTE | 2021-12-04 11:56 | Emergency Department Note ---
History of Present Illness General Chief complaint: Fall Time Seen by Provider: 12/04/21 11:32 History of Present Illness Maximum Pain Intensity: 4 This 56-year-old male with a known history of chronic hyponatremia, hypertension, hypomagnesemia, past rhabdomyolysis, alcohol abuse, hypokalemia, and frequent falls, presents today by ambulance, for evaluation after falling. Patient states that he has had numerous falls over the last several months. He has felt weak and somewhat dizzy over the last 2 to 3 days. Symptoms are intermittent. His dizziness returned this morning, and he thought he should walk outside in the sun in warm weather. He thought it would make him feel better. Once outside, he states he lost his balance and fell. He denies striking his head. There was no loss of consciousness. He currently denies any pain. He states he just feels weak. No chest pain, shortness of breath, nausea, vomiting, headache, abdominal pain, or extremity pain. He seems very apprehensive about ambulating. He states he does have a walker at home, but does not use it. He states it is too difficult to use outside and that the rubber feet get worn off too quickly. No treatment yet. No other complaints. He states he has not drank any alcohol over the last 2 days. He states he has been drinking a lot of water. He was also able to eat yesterday and this morning. Home Medications Medication Instructions Recorded Confirmed Type [id number] 250 1 tab PO BID PRN 10/23/21 12/04/21 History mg-250 mg-65 mg tablet (Excedrin Extra Strength) folic acid 1 mg tablet 1 mg PO QAM #30 tab 10/29/21 12/04/21 Rx multivitamin with folic acid 400 1 tab PO QAM #30 tab 10/29/21 12/04/21 Rx mcg tablet (Daily-Ifeanyi (with folic acid)) potassium chloride 20 mEq 20 meq PO QAM #20 tab 10/29/21 12/04/21 Rx tablet,extended release(part/cryst) thiamine HCl (vitamin B1) 100 mg 100 mg PO QAM #30 tab 10/29/21 12/04/21 Rx tablet cholecalciferol (vitamin D3) 25 1,000 unit PO DAILY 11/10/21 12/04/21 History mcg (1,000 unit) tablet (Vitamin D3) hydroxyzine HCl 25 mg tablet 25 mg PO BID PRN 11/10/21 12/04/21 History amlodipine 5 mg tablet (Norvasc) 5 mg PO QAM #30 tab 11/13/21 12/04/21 Rx Allergies Allergy/AdvReac Type Severity Reaction Status Date / Time hydralazine Allergy Intermediate rapid drop Verified 12/04/21 15:48 in BP/Vomiting Penicillins AdvReac Mild TIRED Verified 12/04/21 15:48 Past Med/Surg History Medical History Adult failure to thrive Alcohol use disorder Ambulatory dysfunction Anemia Anxiety Aortic root dilation Ataxia Bunion of unspecified foot Chronic hyponatremia Dementia DTs (delirium tremens) Esophageal tear Flat foot, acquired Frequent falls Generalized atherosclerosis Generalized weakness Hammer toe, acquired unspecified Hearing deficit Hereditary and idiopathic neuropathy, unspecified History of COVID-19 ? 07/17/20 per records History of esophageal dilatation last done 04/16/21 @ [facility] History of esophageal stricture Hx of fracture of hip Hypertension Hypokalemia Hypomagnesemia [facility] 2500 cc fluid daily restriction was noted in records Sensorineural hearing loss (SNHL) of both ears Subgaleal hemorrhage Surgical History History of esophagogastroduodenoscopy (EGD) (~04/16/21) History of hip surgery s/p fall and fx Family History Other Cancer Hypertension Denies family history of Myocardial infarction Stroke Social History Smoking Status: Never smoker Tobacco Type: Cigarettes Second Hand Exposure: No; Hx Alcohol Use: Yes Alcohol type: hard liquor Alcohol Intake Frequency Comment: 7-10 beers a day, uncertain which kind of beer Hx Substance Use: No Preferred Language: German Communication Ability: Impaired Visual Impairment: No Limitations Hearing Ability: Hard 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 Jewelry Required: No Beliefs That Will Affect Care: None marital status: Single Current Living Situation: Alone Current Living Situation Comment: [address] Feels Safe at Home: Yes Assistive Devices: Cane and Walker Review of Systems A total of 10 systems reviewed and were otherwise negative Physical Exam Vital Signs Vital Signs - 24 hr 12/04/21 11:43 12/04/21 11:48 12/04/21 12:26 Temperature 36.9 C Temperature Source Oral Pulse Rate - Lying Pulse Rate - Sitting Pulse Rate - Standing Pulse Rate 105 H 105 H 100 H Pulse Rate from SpO2 Sensor Pulse Rhythm Regular Regular Pulse Strength Normal Respiratory Rate 20 20 15 Respiratory Effort / Characteristics Non-Labored Spontaneous Respiratory Depth Normal Respiratory Pattern Regular Blood Pressure - Lying Blood Pressure - Sitting Blood Pressure- Standing Blood Pressure 149/108 H 135/98 Blood Pressure Mean 121 110 Pulse Oximetry 97 97 Oxygen Delivery Method Room Air Room Air Sepsis Recent Fever Within 48 Hours No Sepsis New/Unexplained Change in Mental Status No Sepsis Action Taken by Nursing No Action Required 12/04/21 12:30 12/04/21 14:22 12/04/21 14:23 Temperature Temperature Source Pulse Rate - Lying Pulse Rate - Sitting Pulse Rate - Standing Pulse Rate 94 H 102 H Pulse Rate from SpO2 Sensor 95 H 101 H Pulse Rhythm Pulse Strength Respiratory Rate 15 16 Respiratory Effort / Characteristics Respiratory Depth Respiratory Pattern Blood Pressure - Lying Blood Pressure - Sitting Blood Pressure- Standing Blood Pressure 162/105 H 139/93 Blood Pressure Mean 124 108 Pulse Oximetry 99 97 Oxygen Delivery Method Sepsis Recent Fever Within 48 Hours Sepsis New/Unexplained Change in Mental Status Sepsis Action Taken by Nursing 12/04/21 14:28 12/04/21 14:30 12/04/21 15:00 Temperature Temperature Source Pulse Rate - Lying 84 Pulse Rate - Sitting 88 Pulse Rate - Standing 117 H Pulse Rate 83 87 Pulse Rate from SpO2 Sensor 83 88 Pulse Rhythm Pulse Strength Respiratory Rate 16 13 Respiratory Effort / Characteristics Respiratory Depth Respiratory Pattern Blood Pressure - Lying 117/99 Blood Pressure - Sitting 139/93 Blood Pressure- Standing 103/70 Blood Pressure 150/105 H 185/105 H Blood Pressure Mean 120 131 Pulse Oximetry 97 97 Oxygen Delivery Method Sepsis Recent Fever Within 48 Hours Sepsis New/Unexplained Change in Mental Status Sepsis Action Taken by Nursing 12/04/21 15:30 12/04/21 15:31 12/04/21 16:00 Temperature Temperature Source Pulse Rate - Lying Pulse Rate - Sitting Pulse Rate - Standing Pulse Rate 84 88 86 Pulse Rate from SpO2 Sensor 85 89 87 Pulse Rhythm Pulse Strength Respiratory Rate 13 19 14 Respiratory Effort / Characteristics Respiratory Depth Respiratory Pattern Blood Pressure - Lying Blood Pressure - Sitting Blood Pressure- Standing Blood Pressure 164/98 H 158/96 H Blood Pressure Mean 120 116 Pulse Oximetry 98 97 97 Oxygen Delivery Method Sepsis Recent Fever Within 48 Hours Sepsis New/Unexplained Change in Mental Status Sepsis Action Taken by Nursing 12/04/21 16:30 12/04/21 17:00 12/04/21 17:30 Temperature Temperature Source Pulse Rate - Lying Pulse Rate - Sitting Pulse Rate - Standing Pulse Rate 88 112 H 84 Pulse Rate from SpO2 Sensor 89 106 H Pulse Rhythm Pulse Strength Respiratory Rate 19 17 18 Respiratory Effort / Characteristics Respiratory Depth Respiratory Pattern Blood Pressure - Lying Blood Pressure - Sitting Blood Pressure- Standing Blood Pressure 158/103 H 169/104 H 132/91 Blood Pressure Mean 121 125 104 Pulse Oximetry 99 80 L Oxygen Delivery Method Sepsis Recent Fever Within 48 Hours Sepsis New/Unexplained Change in Mental Status Sepsis Action Taken by Nursing 12/04/21 18:00 12/04/21 18:31 Temperature Temperature Source Pulse Rate - Lying Pulse Rate - Sitting Pulse Rate - Standing Pulse Rate 83 80 Pulse Rate from SpO2 Sensor 84 82 Pulse Rhythm Pulse Strength Respiratory Rate 12 21 Respiratory Effort / Characteristics Respiratory Depth Respiratory Pattern Blood Pressure - Lying Blood Pressure - Sitting Blood Pressure- Standing Blood Pressure 135/89 180/119 H Blood Pressure Mean 104 139 Pulse Oximetry 95 99 Oxygen Delivery Method Sepsis Recent Fever Within 48 Hours Sepsis New/Unexplained Change in Mental Status Sepsis Action Taken by Nursing General: Well-developed, well-nourished, middle-aged white male, in no acute distress. Sitting on a litter. Alert and oriented. Hard of hearing. Skin: Warm and dry with fair turgor. No rashes or lesions. No abrasions or open wounds. HEENT: Normocephalic, atraumatic. Eyes PERRLA EOMI. Ears: TMs intact bilat erally with with good light reflexes. No erythema or bulging. Nares patent bilaterally without turbinate enlargement. Heart: Heart RRR. No MGR. Peripheral pulses are 2+. Lungs: Lungs are clear to auscultation. No crackles rhonchi or wheezing. Good air movement. The patient is able to take a deep breath. Abdomen: Abdomen was inspected, auscultated, and palpated. Bowel sounds present x 4. Soft, nontender to palpation. No hepato-splenomegaly. No masses noted. No CVA tenderness. Musculoskeletal: Patient has no discomfort with palpation over his cervical or thoracic spine. He has intact motor function to the shoulders, elbows, wrists, digits, hips, knees, and ankles. No pain with logrolling of the hips. No pain with palpation of the pelvis. Neurologic: Gross sensation is intact across the upper and lower extremities by soft touch. Course Administered Medications Sodium Chloride (Nss 1000ml) 1,000 mls @ 250 mls/hr IV .Q4H [id number] Stop: 01/03/22 15:14 Last Admin: 12/04/21 19:31 Dose: 250 mls/hr Documented by: [id number] Infusion: 12/04/21 19: Dose: 0 mls/hr Documented by: [id number] Admin: 12/04/21 15:20 Dose: 250 mls/hr Documented by: [id number] Medical Decision Making Differential Diagnosis Alcohol intoxication, intracranial injury, long bone fracture, hyponatremia, vertigo, dehydration, malnutrition, cardiac event Medical Records Attestation: I reviewed the patient's medical records. Home Medications Current Medication List: was personally reviewed by me Laboratory Data CBC, chemistry panel, troponin, alcohol level, and PT/INR were obtained today. No elevation in white count. Mild anemia with H&H of 12.4 and 36.0. INR normal at 1.0. Hyponatremic with a sodium of 129. Potassium mildly low at 3.4. Glucose is normal. Troponin is normal. Alcohol level is normal. COVID swab obtained today is negative. Result diagrams: 12/04/21 12:17 12/04/21 12:17 Lab Results 12/04/21 12/04/21 12/04/21 Range/Units 12:17 12:17 12:17 WBC 7.89 (4.8-10.8) K/uL RBC 4.30 L (4.7-6.1) M/uL Hgb 12.4 L (14.0-18.0) g/dL Hct 36.0 L (42-52) % MCV 83.7 (80-100) fL MCH 28.8 (25-34) pg MCHC 34.4 (32-36) g/dL RDW Std Deviation 46.7 H (36.4-46.3) fL RDW Coeff of Luis 15.2 H (11.5-14.5) % Plt Count 160 (130-400) K/uL MPV 9.6 (7.4-10.4) fL Immature Gran % (Auto) 0.4 % Neut % (Auto) 71.3 % Lymph % (Auto) 12.5 % Lewis % (Auto) 15.0 % Eos % (Auto) 0.5 % Baso % (Auto) 0.3 % Neut # (Auto) 5.63 (1.4-6.5) K/uL Lymph # (Auto) 0.99 L (1.2-3.4) K/uL Lewis # (Auto) 1.18 H (0.11-0.59) K/uL Eos # (Auto) 0.04 (0-0.5) K/uL Baso # (Auto) 0.02 (0-0.2) K/uL Immature Gran # (Auto) 0.03 H (0.00-0.02) K/uL PT 10.9 (9.0-12.0) Seconds INR 1.0 (0.9-1.1) Sodium 129 L (136-145) mmol/L Potassium 3.4 L (3.5-5.1) mmol/L Chloride 94 L (98-107) mmol/L Carbon Dioxide 24 (21-32) mmol/L Anion Gap 11 (3-11) BUN 9 (6-23) mg/dl Creatinine 0.63 (0.6-1.4) mg/dl Est Cr Clr Drug Dosing 127.0 ml/min Est GFR ( Amer) 126.8 ml/min Est GFR (Non-Af Amer) 109.4 ml/min BUN/Creatinine Ratio 14.3 (10-20) Glucose 102 H (70-99(Fasting)) mg/dl Calcium 9.0 (8.5-10.1) mg/dl Total Bilirubin 0.8 (0.2-1.0) mg/dl AST 25 (13-39) U/L ALT 11 (7-52) U/L Alkaline Phosphatase 65 (34-104) U/L Troponin I High Sens 9.0 (0-20) pg/ml Total Protein 7.4 (6.0-8.3) gm/dl Albumin 4.1 (3.4-5.0) gm/dl Globulin 3.3 (2.5-4.0) gm/dl Albumin/Globulin Ratio 1.2 (0.9-2) Ethyl Alcohol mg/dL (<10.0) mg/dl SARS-CoV-2, RNA, NAAT (NEGATIVE) 12/04/21 12/04/21 Range/Units 15:43 16:45 WBC (4.8-10.8) K/uL RBC (4.7-6.1) M/uL Hgb (14.0-18.0) g/dL Hct (42-52) % MCV (80-100) fL MCH (25-34) pg MCHC (32-36) g/dL RDW Std Deviation (36.4-46.3) fL RDW Coeff of Luis (11.5-14.5) % Plt Count (130-400) K/uL MPV (7.4-10.4) fL Immature Gran % (Auto) % Neut % (Auto) % Lymph % (Auto) % Lewis % (Auto) % Eos % (Auto) % Baso % (Auto) % Neut # (Auto) (1.4-6.5) K/uL Lymph # (Auto) (1.2-3.4) K/uL Lewis # (Auto) (0.11-0.59) K/uL Eos # (Auto) (0-0.5) K/uL Baso # (Auto) (0-0.2) K/uL Immature Gran # (Auto) (0.00-0.02) K/uL PT (9.0-12.0) Seconds INR (0.9-1.1) Sodium (136-145) mmol/L Potassium (3.5-5.1) mmol/L Chloride (98-107) mmol/L Carbon Dioxide (21-32) mmol/L Anion Gap (3-11) BUN (6-23) mg/dl Creatinine (0.6-1.4) mg/dl Est Cr Clr Drug Dosing ml/min Est GFR ( Amer) ml/min Est GFR (Non-Af Amer) ml/min BUN/Creatinine Ratio (10-20) Glucose (70-99(Fasting)) mg/dl Calcium (8.5-10.1) mg/dl Total Bilirubin (0.2-1.0) mg/dl AST (13-39) U/L ALT (7-52) U/L Alkaline Phosphatase (34-104) U/L Troponin I High Sens (0-20) pg/ml Total Protein (6.0-8.3) gm/dl Albumin (3.4-5.0) gm/dl Globulin (2.5-4.0) gm/dl Albumin/Globulin Ratio (0.9-2) Ethyl Alcohol mg/dL < 10.0 (<10.0) mg/dl SARS-CoV-2, RNA, NAAT NEGATIVE (NEGATIVE) Prescription Drug Monitoring Prescription Drug Findings: EKG obtained today was reviewed by me with Dr. Espitia. it shows a sinus tachycardia with a rate of 107. No acute ST or T wave changes. No significant change when compared to EKG from October of this year. Blood Pressure Blood Pressure Findings: Elevated blood pressure Blood Pressure Disposition: further management by hospitalist VENICE Miranda Patient was evaluated in room C 11. IV was established. Labs were obtained. EKG was also obtained. He had no outward signs of trauma or complaints of significant pain. His main complaint was weakness and inability to ambulate. Patient stated he felt very unsteady on his feet. I did have an extensive discussion with him regarding use of a walker. He had many excuses as to why he could not or would not use a walker. Lab evaluation obtained today shows no evidence of hyponatremia, though it is only slightly lower than his usual baseli ne. Orthostatic BPs were obtained today. He was found to have significant transition in pulse as well as systolic pressure when going from sitting to standing. Because of this, patient was admitted for observation and hydration. I did start normal sterile saline at 250 ml/h. He was given an ambulatory trial, and did not pass. Patient collapsed back on the bed, stating he was too weak[facility]. Please see that dictation for final management. Patient remained stable while in the ED. Impression & Plan Acute dehydration [facility] Patient did verbalize to me that he previously lived in a prison. He wanted more independence. He obtained an apartment and has been living there on his own. He had been doing well but has declined over the last 4 weeks. He feels he can no longer live on his own and would [facility]. He will be brought into the hospital for gentle hydration, and improvement of his weakness. Patient was seen in conjunction with Dr. Espitia, who also evaluated the patient and concurred with today's diagnosis and treatment plan. Discharge Plan Visit Data Chief Complaint: Fall ED Provider: David Espitia ED Midlevel Provider: Steve Jane Discharge Problem: Acute dehydration Forms Stand Alone Forms: My [facility] Prescriptions Prescriptions: No Action cholecalciferol (vitamin D3) [Vitamin D3] 25 mcg (1,000 unit) tablet 1,000 unit PO DAILY RF: 0 hydroxyzine HCl 25 mg tablet 25 mg PO BID PRN (Reason: Itching) RF: 0 amlodipine [Norvasc] 5 mg Tablet 5 mg PO QAM Qty: 30 RF: 0 Excedrin Extra Strength 250-250-65 mg Tablet 1 tab PO BID PRN (Reason: Pain) RF: 0 potassium chloride 20 mEq Tablet,Er Particles/Crystals 20 meq PO QAM Qty: 20 RF: 0 folic acid 1 mg Tablet 1 mg PO QAM Qty: 30 RF: 0 multivitamin with folic acid [Daily-Ifeanyi (with folic acid)] 400 mcg Tablet 1 tab PO QAM Qty: 30 RF: 0 thiamine HCl (vitamin B1) 100 mg Tablet 100 mg PO QAM Qty: 30 RF: 0 Referrals Referrals: Denis Burleson DO [Primary Care Provider] -
[2021-12-04 12:48] LABS: Prothrombin Time 10.9 Seconds (9.0-12.0)
[2021-12-04 12:54] LABS: Basophils # (auto) 0.02 K/uL (0-0.2); Basophils % (auto) 0.3 %; Eosinophils # (auto) 0.04 K/uL (0-0.5); Eosinophils % (auto) 0.5 %; Hemoglobin 12.4 g/dL (14.0-18.0); Immature Granulocytes # (auto) 0.03 K/uL (0.00-0.02); Immature Granulocytes % (auto) 0.4 %; Lymphocytes # (auto) 0.99 K/uL (1.2-3.4); Lymphocytes % (auto) 12.5 %; Mean Corpuscular Hemoglobin 28.8 pg (25-34); Mean Corpuscular Hgb Conc 34.4 g/dL (32-36); Mean Corpuscular Volume 83.7 fL (80-100); Mean Platelet Volume 9.6 fL (7.4-10.4); Monocytes # (auto) 1.18 K/uL (0.11-0.59); Neutrophils # (auto) 5.63 K/uL (1.4-6.5); Neutrophils % (auto) 71.3 %; Platelet Count 160 K/uL (130-400); RDW Coefficient of Variation 15.2 % (11.5-14.5); RDW Standard Deviation 46.7 fL (36.4-46.3); White Blood Count 7.89 K/uL (4.8-10.8)
[2021-12-04 13:05] LABS: Albumin Globulin Ratio 1.2 (0.9-2); Albumin Level 4.1 gm/dl (3.4-5.0); BUN Creatinine Ratio 14.3 (10-20); Bilirubin,Total 0.8 mg/dl (0.2-1.0); Est GFR (African American) 126.8 ml/min; Est GFR (Non-African American) 109.4 ml/min; Globulin 3.3 gm/dl (2.5-4.0); Potassium 3.4 mmol/L (3.5-5.1); Total Protein 7.4 gm/dl (6.0-8.3)
--- NOTE | 2021-12-04 13:28 | Electrocardiogram Report ---
Test Reason : Blood Pressure : / mmHG Vent. Rate : 107 BPM Atrial Rate : 107 BPM P-R Int : 180 ms QRS Dur : 082 ms QT Int : 358 ms P-R-T Axes : 059 001 071 degrees QTc Int : 477 ms Poor data quality, interpretation may be adversely affected Sinus tachycardia Anteroseptal infarct (cited on or before 23-OCT-2021) Abnormal ECG When compared with ECG of 10-NOV-2021 06:53, No significant change Confirmed by Malvin Hector [id number]) on 12/04/2021 1:28:01 PM Referred By: SELF Confirmed By:Malvin Hector
[2021-12-04] MEDS: SODIUM CHLORIDE 0.9% 1000ML 1,000 ML IV SCH ×3 (15:20→22:29)
[2021-12-04] MEDS ORDERED: GABAPENTIN 1200MG ALCOHOL WITHDRAWAL LOAD PO STA (18:53)
[2021-12-04] MEDS ORDERED: ATIVAN IV ALCOHOL WITHDRAWL IV PRN (21:12)
[2021-12-04] MEDS ORDERED: cloNIDine HCL 0.1 MG TAB PO PRN (21:12)
[2021-12-04] MEDS ORDERED: GABAPENTIN 600 MG TAB PO ONE (21:12)
[2021-12-04] MEDS ORDERED: NITROGLYCERIN SL 0.4 MG/TAB TAB SL PRN (21:12)
[2021-12-04] MEDS ORDERED: LORazepam 2 MG/1 ML VIAL IV PRN ×3 (21:12)
--- NOTE | 2021-12-04 21:52 | History and Physical Report ---
DATE OF ADMISSION: 12/04/2021. CHIEF COMPLAINT: Fall. 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 The patient is admitted in the hospital for frequent falls and alcoholism. The patient says he is not drinking heavily as he used to drink, he did not drink in the last 3 days, he drank 6-7 beers 3-4 days ago and he states he is not getting withdrawal symptoms like in the past, but he is having very poor ambulatory status. He is in an apartment. He is no longer feeling safe in the apartment, he is scared that if he falls down, he could not even yell for help. He says he is usually walking with holding things and not using a walker, and 2 days ago, he went outside to a store and he was so unsteady that a coppersmith apprentice stopped him and they called the ambulance, but he refused to come to the hospital because he was coming to the hospital frequently. Today again he went outside because the day was nice and he was also scared to stay in the house and he was ambulating without any support. He says the walker does not work very good in the outside and he thinks even the cane does not help, so he was walking without any support when after 100 feet, he felt weak and his legs gave way, he fell down. He fell holding the flower pot so he fell slowly. Did not hit head, no loss of consciousness and someone called the ambulance and he was brought in here and in the ER, his orthostatics were positive, so we were called for admission. Now, the patient wants to go to [facility], he does not want to stay in the apartment anymore, he does not feel safe, he wants to go back to [facility]. Denies any headache. [place] dizzy before falling down. Vision is okay. No runny nose, no cough, no fevers, no chest pain, no shortness of breath. He has to grind the food to make it easy to swallow. No nausea, no abdominal pain, normal bowel and bladder movements. ALLERGIES: HYDRALAZINE, PENICILLIN. PAST MEDICAL HISTORY: As mentioned above. PAST SURGICAL HISTORY: EGDs, hip surgery. MEDICATIONS: Currently, the patient seems to be on amlodipine 5 mg p.o. daily, vitamin D 1000 units p.o. daily, Excedrin Extra Strength 1 tablet p.o. b.i.d. p.r.n., folic acid 1 mg p.o. daily, hydroxyzine 25 mg p.o. b.i.d. p.r.n., multivitamins with folic acid 1 tablet daily, potassium chloride 20 mEq p.o. a.m., thiamine 100 mg p.o. a.m. FAMILY HISTORY: Significant for no family history on file. SOCIAL HISTORY: Former smoker. Drinks 6-7 beers daily, the patient states currently he is not drinking every day. No drug use. REVIEW OF SYSTEMS: As per HPI. Rest of the review of systems is negative. PHYSICAL EXAMINATION: GENERAL: The patient is of moderate build, not in acute distress. VITAL SIGNS: Temperature 36.9, pulse 80, respiratory rate 21, blood pressure 180/119, oxygen 99% on room air. HEENT: Pupils equal, round and reactive to light. Oral mucosa moist. NECK: No JVD. No neck masses. CARDIOVASCULAR: S1 and S2 heard. Regular rate and rhythm. No murmur, no gallop. RESPIRATORY SYSTEM: Normal AP diameter. No accessory muscle use. No wheezing, no crackles. ABDOMEN: Soft. Bowel sounds are present, nontender, no distention. CENTRAL NERVOUS SYSTEM: Cranial nerves II through XII are grossly intact. Power, 4/5 in upper extremities and 3/5 in lower extremities. EXTREMITIES: No edema, no erythema. LABORATORIES: WBC 7.8, hemoglobin 12.4, hematocrit 36, platelets 160. PT 10.9, INR 1. Sodium 129, potassium 3.4, chloride 94, CO2 24, BUN 9, creatinine 0.6, serum glucose 102, calcium 9, total bilirubin 0.8, AST 25, ALT 11, alkaline phosphatase 65. Troponin I high sensitivity 9. Ethyl alcohol less than 3. SARS-CoV-2 rapid test negative. ELECTROCARDIOGRAM: Sinus tachycardia at a rate of 107, no significant change was found. ASSESSMENT AND PLAN: This 56-year-old male presents with a fall. 1. Frequent falls, history of alcoholism: The patient does not feel safe at his apartment and wants to go back to [facility]. We will do physical therapy and occupational therapy, monitor in the hospital. Social Service to help with discharge planning. 2. Orthostatic hypotension: The patient's orthostatics were positive in the Emergency Room, could be a cause of his fall. He will be getting fluids. We will recheck the orthostatics. Monitor in the med-telemetry. If any concern, get echocardiogram. 3. History of alcoholism: The patient says he is not drinking as he used to do and he is not getting withdrawal even if he does not drink for a few days. In the last 2-3 days, he did not drink. Before that, he drank 6-7 beers, but we will prophylactically place him on gabapentin alcohol withdrawal protocol and IV Ativan p.r.n. Continue his home thiamine and folic acid. 4. Hyponatremia, history of hyponatremia: He used to be on salt tablets in the past. Sodium is 129. We will follow the repeat laboratories in the a.m. Getting fluids. 5. Hypokalemia: We will replace. 6. Hypertension: Currently blood pressure is running high, on amlodipine. I doubt he is taking the medication. Continue his amlodipine and place him on clonidine p.r.n. 7. Ambulatory dysfunction: Physical therapy and occupational therapy evaluation. 8. History of esophageal stenosis: He needs to be on a chopped soft diet. 9. Chronic anemia: Hemoglobin is 12.4, at baseline, stable. 10. History of tobacco abuse. 11. Deep venous thrombosis prophylaxis: We will place him on sequential compression devices and heparin 5000 units b.i.d. DISPOSITION: Admit to med-tele. PT/OT. Social Service to help with discharge planning. Level 1, full code. Job ID: [id number] [facility] [place]
[2021-12-04] MEDS ORDERED: POTASSIUM CHLORIDE 20 MEQ/15 ML UDC PO STA (22:08)
[2021-12-04] MEDS: HEPARIN SOD 5,000 UNIT/0.5 ML VIAL SQ SCH (22:28)
[2021-12-04] MEDS: ACETAMINOPHEN 325 MG TAB PO PRN (23:08)
[2021-12-05] MEDS: GABAPENTIN 600 MG TAB PO SCH ×3 (04:59→20:37)
[2021-12-05] MEDS: SODIUM CHLORIDE 0.9% 1000ML 1,000 ML IV SCH ×2 (05:41→20:37)
[2021-12-05 06:31] LABS: Basophils # (auto) 0.02 K/uL (0-0.2); Basophils % (auto) 0.3 %; Eosinophils # (auto) 0.14 K/uL (0-0.5); Eosinophils % (auto) 2.1 %; Hematocrit (blood only) 37.7 % (42-52); Hemoglobin 12.4 g/dL (14.0-18.0); Immature Granulocytes # (auto) 0.03 K/uL (0.00-0.02); Immature Granulocytes % (auto) 0.5 %; Mean Corpuscular Hemoglobin 28.6 pg (25-34); Mean Corpuscular Hgb Conc 32.9 g/dL (32-36); Mean Corpuscular Volume 87.1 fL (80-100); Mean Platelet Volume 10.1 fL (7.4-10.4); Monocytes # (auto) 1.53 K/uL (0.11-0.59); Monocytes % (auto) 23.3 %; Neutrophils # (auto) 2.74 K/uL (1.4-6.5); Neutrophils % (auto) 41.8 %; Platelet Count 164 K/uL (130-400); RDW Coefficient of Variation 15.5 % (11.5-14.5); RDW Standard Deviation 50.2 fL (36.4-46.3); Red Blood Count 4.33 M/uL (4.7-6.1); White Blood Count 6.56 K/uL (4.8-10.8)
[2021-12-05 07:00] LABS: BUN Creatinine Ratio 14.3 (10-20); Calcium 8.6 mg/dl (8.5-10.1); Creatinine Clr Calc Pharmacy 139.8 ml/min; Est GFR (African American) 133.1 ml/min; Est GFR (Non-African American) 114.8 ml/min; Magnesium 1.9 mg/dl (1.7-2.4); Potassium 3.6 mmol/L (3.5-5.1)
[2021-12-05] MEDS: ACETAMINOPHEN 325 MG TAB PO PRN ×2 (08:52→15:21)
[2021-12-05] MEDS: CHOLECALCIFEROL 1,000 UNITS 25 MCG TAB PO SCH (08:53)
[2021-12-05] MEDS: amLODIPine BESYLATE 5 MG TAB PO SCH (08:53)
[2021-12-05] MEDS: MULTIVITAMIN TAB PO SCH (08:53)
[2021-12-05] MEDS: POTASSIUM CHLORIDE CRTAB 20 MEQ TABCR PO SCH (08:53)
[2021-12-05] MEDS: FOLIC ACID 1 MG TAB PO SCH (08:53)
[2021-12-05] MEDS: THIAMINE HCL 100 MG TAB PO SCH (08:54)
[2021-12-05] MEDS: HEPARIN SOD 5,000 UNIT/0.5 ML VIAL SQ SCH ×2 (08:54→20:40)
[2021-12-05] MEDS ORDERED: GADOBUTROL 65ML VIAL IV ONE (14:49)
--- NOTE | 2021-12-05 15:27 | Magnetic Resonance Report ---
MR brain wo/w con CLINICAL HISTORY: ataxia, prior alcoholic. COMPARISON STUDY: 06/13/2017 TECHNIQUE: Multiplanar multisequence images of the brain were performed before and after Gadavist, 6 .5 mL of IV contrast. Diffusion weighted imaging and ADC mapping was also performed. FINDINGS: Extra-axial space: There is no evidence for a subdural hematoma, There are no extra-axial fluid eric ections. Ventricles and cisterns: The ventricles are again moderately dilated bilaterally. There is no eviden ce for midline shift or mass effect. Parenchyma: On noncontrast images, there is no evidence for an acute hemorrhage or infarct. No acute diffusion abnormalities are noted on diffusion weighted imaging or ADC mapping. There is normal geiger -white differentiation. There is mild cerebral cortical atrophy present. The sulci and gyri appear no rmal without effacement. The midline structures are unremarkable. The posterior fossa structures appe ar normal. On postcontrast images, there is no evidence for enhancing mass lesion. Osseous structures: The paranasal sinuses are well aerated. The mastoid air cells are well aerated. Soft tissues: No focal soft tissue abnormalities are identified. IMPRESSION: 1. No acute intracranial abnormalities. 2. Cerebral cortical atrophy ACT 112: Negative or not required by law. Electronically signed by: David Rojas M.D. 12/05/2021 3:25 PM
--- NOTE | 2021-12-05 17:28 | Hospitalist Progress Note ---
Date of Service December 05, 2021 Assessment & Plan (1) Ambulatory dysfunction: (2) Ataxia: (3) Alcohol abuse: Plan: 56-year-old male presents with ambulatory dysfunction/ataxia with h/o multiple falls. 1. Ambulatory dysfunction/ataxia/falls- CT head unremarkable. Given his chronic alcohol abuse, will get MRI brain to rule out cerebellar pathology. Will check B12, TSH, CK. Continue orthostatics, tele, PT/OT eval. Likely will need rehab. Might consider neuro eval if continues to be an issue. 2. Orthostatic hypotension: Seems resolved, recheck in am. On ivf. 3. Alcohol abuse:He says he does not drink as much, last drink was 7-8 beers on Monday. Low concern for withdrawal at this point. On gabapentin alcohol withdrawal protocol and IV Ativan p.r.n. Continue his home thiamine and folic acid. 4. Hyponatremia- improving; He used to be on salt tablets in the past.recheck in am 5. Hypokalemia/hypomagnesemia: resolved 6. Hypertension:BP controlled on norvasc 7. History of esophageal stenosis: He needs to be on a chopped soft diet. DVT ppx- sc heparin Dispo- Pending PT/OT eval, MRI Admission and Anticipated Discharge Date Admission Date: December 04, 2021 Subjective He says that he is still unsteady in his feet. He fears going back to his apartment as he is afraid he might fall and break more bones and that his apartment is kind of isolated and if something is to happen to him, he won't be able to seek help and he might just there. He states he was an alcoholic but now drinks few beers every now and then- states last drink was 7-8 beers on Monday, no liquors. States he had multiple falls due to his imbalance and had multiple fractures already including bilateral hips and elbow. Physical Exam Physical Exam: General: Looks older than stated age, lying comfortably in bed, not in distress, on room air HEENT: EOMI, JORGE A, MMM Chest: Clear breath sounds bilaterally, no wheezes or crackles CVS: Regular rate and rhythm, normal heart sounds, no murmur Abdomen: Soft, non tender, not distended, normal bowel sounds Neuro: Awake, alert, oriented, conversing well, non focal. Strength 5/5, sensation intact. Gait unsteady- patient was walking clinging to the archer during my encounter to prevent falls Extremities: No cyanosis, clubbing or edema. Results & Data Results & Data ([facility]) Vital Signs (Past 12 Hours) Vital Signs Temp Pulse Pulse Resp BP BP Pulse Ox 12/05/21 15:53 37.0 C 87 18 133/88 97 12/05/21 15:47 82 12/05/21 11:00 36.9 C 75 18 134/80 98 12/05/21 07:39 78 12/05/21 06:43 36.9 C 88 20 135/87 98 Laboratory Results Short CBC 12/05/21 Range/Units 05:18 WBC 6.56 (4.8-10.8) K/uL Hgb 12.4 L (14.0-18.0) g/dL Hct 37.7 L (42-52) % Plt Count 164 (130-400) K/uL BMP 12/05/21 05:18 Sodium 132 L Potassium 3.6 Chloride 98 Carbon Dioxide 23 BUN 8 Creatinine 0.56 L Glucose 97 Calcium 8.6 Diagnostic Findings Brain MRI 12/05/21 13:42 MR brain wo/w con CLINICAL HISTORY: ataxia, prior alcoholic. COMPARISON STUDY: 06/13/2017 TECHNIQUE: Multiplanar multisequence images of the brain were performed before and after Gadavist, 6.5 mL of IV contrast. Diffusion weighted imaging and ADC mapping was also performed. FINDINGS: Extra-axial space: There is no evidence for a subdural hematoma, There are no extra-axial fluid collections. Ventricles and cisterns: The ventricles are again moderately dilated bilaterally. There is no evidence for midline shift or mass effect. Parenchyma: On noncontrast images, there is no evidence for an acute hemorrhage or infarct. No acute diffusion abnormalities are noted on diffusion weighted imaging or ADC mapping. There is normal geiger-white differentiation. There is mild cerebral cortical atrophy present. The sulci and gyri appear normal without effacement. The midline structures are unremarkable. The posterior fossa structures appear normal. On postcontrast images, there is no evidence for enhancing mass lesion. Osseous structures: The paranasal sinuses are well aerated. The mastoid air cells are well aerated. Soft tissues: No focal soft tissue abnormalities are identified. IMPRESSION: 1. No acute intracranial abnormalities. 2. Cerebral cortical atrophy ACT 112: Negative or not required by law. Electronically signed by: David Rojas M.D. 12/05/2021 3:25 PM Medications Administered Current Inpatient Medications Acetaminophen (Acetaminophen 325 Mg Tab) 650 mg PO Q4H PRN PRN Reason: Pain or Fever Stop: 01/03/22 21:11 Last Admin: 12/05/21 15:21 Dose: 650 mg Documented by: Amlodipine Besylate (Amlodipine Besylate 5 Mg Tab) 5 mg PO QAM [facility] Stop: 01/04/22 08:59 Last Admin: 12/05/21 08:53 Dose: 5 mg Documented by: Clonidine HCl (Clonidine Hcl 0.1 Mg Tab) 0.1 mg PO Q4H PRN PRN Reason: Hypertension Stop: 01/03/22 21:11 Folic Acid (Folic Acid 1 Mg Tab) 1 mg PO QAM [facility] Stop: 01/04/22 08:59 Last Admin: 12/05/21 08:53 Dose: 1 mg Documented by: Gabapentin (Gabapentin 600 Mg Tab) 600 mg PO Q8H [facility] Stop: 12/06/21 10:01 Gabapentin (Gabapentin 600 Mg Tab) 600 mg PO Q12H [facility] Stop: 12/07/21 10:01 Gabapentin (Gabapentin 600 Mg Tab) 600 mg PO Q24H [facility] Stop: 12/08/21 09:01 Heparin Sodium (Porcine) (Heparin Sod 5,000 Unit/0.5 Ml Vial) 5,000 units SQ Q12 [facility] Stop: 01/03/22 21:11 Last Admin: 12/05/21 08:54 Dose: 5,000 units Documented by: Hydroxyzine HCl (Hydroxyzine Hcl 25 Mg Tab) 25 mg PO BID PRN PRN Reason: Itching Stop: 01/03/22 21:11 Sodium Chloride (Nss 1000ml) 1,000 mls @ 100 mls/hr IV .Q10H [facility] Stop: 01/03/22 21:11 Last Admin: 12/05/21 05:41 Dose: 100 mls/hr Documented by: Lorazepam (Lorazepam 2 Mg/1 Ml Vial) 1 mg IV UD PRN; Protocol PRN Reason: EtOH Withdrawl AWSS Score 6,7 Stop: 01/03/22 21:11 Lorazepam (Lorazepam 2 Mg/1 Ml Vial) 2 mg IV UD PRN; Protocol PRN Reason: EtOH Withdrawl AWSS Score 8,9 Stop: 01/03/22 21:11 Lorazepam (Lorazepam 2 Mg/1 Ml Vial) 3 mg IV ONCE PRN; Protocol PRN Reason: EtOH Withdrawl AWSS Score >=10 Multivitamins (Multivitamin Tab) [facility] Stop: 01/04/22 08:59 Last Admin: 12/05/21 08:53 Dose: 1 tab Documented by: Nitroglycerin (Nitroglycerin Sl 0.4 Mg/Tab Tab) 0.4 mg SL Q5M PRN PRN Reason: Chest Pain Stop: 01/03/22 21:11 Potassium Chloride (Potassium Chloride Crtab 20 Meq Tabcr) [address] [facility] Stop: 01/04/22 08:59 Last Admin: 12/05/21 08:53 Dose: 20 meq Documented by: Thiamine HCl (Thiamine Hcl 100 Mg Tab) [address] [facility] Stop: 01/04/22 08:59 Last Admin: 12/05/21 08:54 Dose: 100 mg Documented by: Vitamin D (Cholecalciferol 1,000 Units 25 Mcg Tab) 1,000 units PO DAILY [facility] Stop: 01/04/22 08:59 Last Admin: 12/05/21 08:53 Dose: 1,000 units Documented by:
[2021-12-06] MEDS: ACETAMINOPHEN 325 MG TAB PO PRN ×4 (03:16→20:52)
[2021-12-06] MEDS: GABAPENTIN 600 MG TAB PO SCH ×3 (03:18→22:14)
[2021-12-06] MEDS: SODIUM CHLORIDE 0.9% 1000ML 1,000 ML IV SCH ×2 (06:15→16:08)
[2021-12-06] MEDS: POTASSIUM CHLORIDE CRTAB 20 MEQ TABCR PO SCH (08:07)
[2021-12-06] MEDS: MULTIVITAMIN TAB PO SCH (08:07)
[2021-12-06] MEDS: THIAMINE HCL 100 MG TAB PO SCH (08:07)
[2021-12-06] MEDS: FOLIC ACID 1 MG TAB PO SCH (08:07)
[2021-12-06] MEDS: amLODIPine BESYLATE 5 MG TAB PO SCH (08:07)
[2021-12-06] MEDS: CHOLECALCIFEROL 1,000 UNITS 25 MCG TAB PO SCH (08:08)
[2021-12-06] MEDS: HEPARIN SOD 5,000 UNIT/0.5 ML VIAL SQ SCH ×2 (08:08→20:54)
[2021-12-06 10:15] LABS: Hematocrit (blood only) 37.3 % (42-52); Hemoglobin 11.9 g/dL (14.0-18.0); Mean Corpuscular Hemoglobin 28.1 pg (25-34); Mean Corpuscular Hgb Conc 31.9 g/dL (32-36); Mean Corpuscular Volume 88.2 fL (80-100); Mean Platelet Volume 9.8 fL (7.4-10.4); Platelet Count 203 K/uL (130-400); RDW Coefficient of Variation 15.6 % (11.5-14.5); RDW Standard Deviation 50.1 fL (36.4-46.3); Red Blood Count 4.23 M/uL (4.7-6.1); White Blood Count 5.73 K/uL (4.8-10.8)
[2021-12-06 11:01] LABS: Albumin Globulin Ratio 1.4 (0.9-2); Albumin Level 4.2 gm/dl (3.4-5.0); BUN Creatinine Ratio 7.1 (10-20); Bilirubin,Total 0.4 mg/dl (0.2-1.0); Calcium 8.8 mg/dl (8.5-10.1); Creatinine Clr Calc Pharmacy 143.1 ml/min; Est GFR (African American) 133.1 ml/min; Est GFR (Non-African American) 114.8 ml/min; Magnesium 1.7 mg/dl (1.7-2.4); Phosphorus 2.8 mg/dl (2.5-4.9); Potassium 3.6 mmol/L (3.5-5.1); Total Protein 7.2 gm/dl (6.0-8.3)
--- NOTE | 2021-12-06 18:57 | Hospitalist Progress Note ---
Date of Service December 06, 2021 Assessment & Plan (1) Ambulatory dysfunction: (2) Ataxia: (3) Alcohol abuse: Plan: 56-year-old male presents with ambulatory dysfunction/ataxia with h/o multiple falls. 1. Ambulatory dysfunction/ataxia/falls- CT head unremarkable. MRI head with no acute finding. Normal B12, TSH, CK. Orthostatics negative. PT recommends rehab. 2. Orthostatic hypotension: resolved. 3. Alcohol abuse:He says he does not drink as much, last drink was 7-8 beers on Monday. Low concern for withdrawal at this point. On gabapentin alcohol withdrawal protocol and IV Ativan p.r.n. Continue his home thiamine and folic acid. 4. Hyponatremia- improving; He used to be on salt tablets in the past.recheck in am 5. Hypokalemia/hypomagnesemia: resolved 6. Hypertension:BP controlled on norvasc 7. History of esophageal stenosis: He needs to be on a chopped soft diet. DVT ppx- sc heparin Dispo- PT recommends rehab. CM following Admission and Anticipated Discharge Date Admission Date: December 04, 2021 Subjective No new issues. He worked with physical therapy. States he felt weak and worked up. Denies any lightheadedness, dizziness, chest pain, shortness of breath. Physical Exam Physical Exam: General: Looks older than stated age, sitting comfortably in bed, not in distress, on room air HEENT: EOMI, JORGE A, MMM Chest: Clear breath sounds bilaterally, no wheezes or crackles CVS: Regular rate and rhythm, normal heart sounds, no murmur Abdomen: Soft, non tender, not distended, normal bowel sounds Neuro: Awake, alert, oriented, conversing well, non focal. Extremities: No cyanosis, clubbing or edema. Results & Data Results & Data ([facility]) Vital Signs (Past 12 Hours) Vital Signs Temp Pulse Pulse Resp BP BP Pulse Ox 12/06/21 15:38 91 H 12/06/21 14:49 37.2 C 85 20 148/93 H 99 12/06/21 13:47 12/06/21 11:00 36.5 C 92 H 20 166/90 H 99 12/06/21 07:29 81 Pulse Ox 12/06/21 15:38 12/06/21 14:49 12/06/21 13:47 93 12/06/21 11:00 12/06/21 07:29 Laboratory Results Short CBC 12/06/21 Range/Units 09:21 WBC 5.73 (4.8-10.8) K/uL Hgb 11.9 L (14.0-18.0) g/dL Hct 37.3 L (42-52) % Plt Count 203 (130-400) K/uL BMP 12/06/21 09:21 Sodium 134 L Potassium 3.6 Chloride 100 Carbon Dioxide 23 BUN 4 L Creatinine 0.56 L Glucose 82 Calcium 8.8 Cardiac Enzymes 12/06/21 Range/Units 09:21 Total Creatine Kinase 58 (30-223) U/L Liver Function 12/06/21 Range/Units 09:21 Total Bilirubin 0.4 (0.2-1.0) mg/dl AST 20 (13-39) U/L ALT 10 (7-52) U/L Alkaline Phosphatase 70 (34-104) U/L Albumin 4.2 (3.4-5.0) gm/dl Medications Administered Current Inpatient Medications Acetaminophen (Acetaminophen 325 Mg Tab) 650 mg PO Q4H PRN PRN Reason: Pain or Fever Stop: 01/03/22 21:11 Last Admin: 12/06/21 13:56 Dose: 650 mg Documented by: Amlodipine Besylate (Amlodipine Besylate 5 Mg Tab) [facility] Stop: 01/04/22 08:59 Last Admin: 12/06/21 08:07 Dose: 5 mg Documented by: Clonidine HCl (Clonidine Hcl 0.1 Mg Tab) 0.1 mg PO Q4H PRN PRN Reason: Hypertension Stop: 01/03/22 21:11 Folic Acid (Folic Acid 1 Mg Tab) 1 mg PO QAM [facility] Stop: 01/04/22 08:59 Last Admin: 12/06/21 08:07 Dose: 1 mg Documented by: Gabapentin (Gabapentin 600 Mg Tab) 600 mg PO Q12H [facility] Stop: 12/07/21 10:01 Gabapentin (Gabapentin 600 Mg Tab) 600 mg PO Q24H [facility] Stop: 12/08/21 09:01 Heparin Sodium (Porcine) (Heparin Sod 5,000 Unit/0.5 Ml Vial) 5,000 units SQ Q12 [facility] Stop: 01/03/22 21:11 Last Admin: 12/06/21 08:08 Dose: 5,000 units Documented by: Hydroxyzine HCl (Hydroxyzine Hcl 25 Mg Tab) 25 mg PO BID PRN PRN Reason: Itching Stop: 01/03/22 21:11 Sodium Chloride (Nss 1000ml) 1,000 mls @ 100 mls/hr IV .Q10H [facility] Stop: 01/03/22 21:11 Last Admin: 12/06/21 16:08 Dose: 100 mls/hr Documented by: Lorazepam (Lorazepam 2 Mg/1 Ml Vial) 1 mg IV UD PRN; Protocol PRN Reason: EtOH Withdrawl AWSS Score 6,7 Stop: 01/03/22 21:11 Lorazepam (Lorazepam 2 Mg/1 Ml Vial) 2 mg IV UD PRN; Protocol PRN Reason: EtOH Withdrawl AWSS Score 8,9 Stop: 01/03/22 21:11 Lorazepam (Lorazepam 2 Mg/1 Ml Vial) 3 mg IV ONCE PRN; Protocol PRN Reason: EtOH Withdrawl AWSS Score >=10 Multivitamins (Multivitamin Tab) 1 tab PO QAM [facility] Stop: 01/04/22 08:59 Last Admin: 12/06/21 08:07 Dose: 1 tab Documented by: Nitroglycerin (Nitroglycerin Sl 0.4 Mg/Tab Tab) 0.4 mg SL Q5M PRN PRN Reason: Chest Pain Stop: 01/03/22 21:11 Potassium Chloride (Potassium Chloride Crtab 20 Meq Tabcr) 20 meq PO QAM [facility] Stop: 01/04/22 08:59 Last Admin: 12/06/21 08:07 Dose: 20 meq Documented by: Thiamine HCl (Thiamine Hcl 100 Mg Tab) 100 mg PO QAM [facility] Stop: 01/04/22 08:59 Last Admin: 12/06/21 08:07 Dose: 100 mg Documented by: Vitamin D (Cholecalciferol 1,000 Units 25 Mcg Tab) 1,000 units PO DAILY [facility] Stop: 01/04/22 08:59 Last Admin: 12/06/21 08:08 Dose: 1,000 units Documented by:
[2021-12-07] MEDS: amLODIPine BESYLATE 5 MG TAB PO SCH (07:34)
[2021-12-07] MEDS: FOLIC ACID 1 MG TAB PO SCH (07:34)
[2021-12-07] MEDS: CHOLECALCIFEROL 1,000 UNITS 25 MCG TAB PO SCH (07:34)
[2021-12-07] MEDS: HEPARIN SOD 5,000 UNIT/0.5 ML VIAL SQ SCH ×2 (07:34→20:54)
[2021-12-07] MEDS: MULTIVITAMIN TAB PO SCH (07:34)
[2021-12-07] MEDS: THIAMINE HCL 100 MG TAB PO SCH (07:34)
[2021-12-07] MEDS: POTASSIUM CHLORIDE CRTAB 20 MEQ TABCR PO SCH (07:34)
[2021-12-07] MEDS: GABAPENTIN 600 MG TAB PO SCH (07:35)
[2021-12-07] MEDS: ACETAMINOPHEN 325 MG TAB PO PRN ×3 (10:24→23:47)
--- NOTE | 2021-12-07 11:25 | Neurology Consultation ---
Date of Consultation December 07, 2021 Assessment & Plan (1) Ataxia: 1. MRI with no acute findings. 2. PT/OT for discharge needs and possible placement 3. fall precautions 4. needs MRI c spine spastic gait possible fall injury 5. vit D, Thiamine levels ordered 6. replace Vit D and thiamine unclear if he was taking 7. fall precautions 8. nutrition deficiency no follow up need from neurology perspective will need rehab and possible placement (2) Alcohol abuse: 1. cessation since last week. Supervising Physician Co-Signing Physician Notes I have seen and discussed above patient with Dr David Ji, neurology I have examined and interviewed this man reviewed his imaging studies and discussed the case and plans with Naz Thakur as outlined above for further diagnostic studies and treatment This man is an alcoholic and has a longstanding gait ataxia likely of mixed causation possibly with an anterior lobe cerebellar syndrome, a polyneuropathy with a lot of large fiber sensory loss distally on exam and possibly with an element of posterior column involvement due to other nutritional deficiencies or even an element of posttraumatic cervical myelopathy so imaging of the cervical cord with and without contrast is being scheduled and if we do see along segment of posterior column demyelination with or without enhancement we will do more in-depth nutritional studies including serum copper He would benefit possibly from an outpatient EMG to assess the severity of his neuropathy which is probably playing a small role in his gait ataxia either We will follow-up on the studies He needs assessment by physical therapy and Occupational Therapy and possibly a rehabilitation stay David Ji MD History of Present Illness Reason for Consultation: ataxia Requesting Physician: Arnold Chamorro MD Attending Physician: Arnold Chamorro MD History of Present Illness Aaron is a 56 year old male with PMH-HTN, old CVA on CAT scan, chronic hyponatremia, EtOH abuse, esophageal stenosis, chronic anemia- baseline hemoglobin 11, past tobacco abuse, ambulatory dysfunction, medical noncompliance, who present to [facility] 12/05/21 with a fall. He has been admitted in the hospital for frequent falls and alcoholism. He states he is not drinking heavily as he used to drink, he did not drink in the last 3 days, he drank 6-7 beers 3-4 days ago and is not getting withdrawal symptoms like in the past, but he is having very poor ambulatory status. He is no longer feeling safe in the apartment, he is scared that if he falls down, he could not even yell for help. He usually walks holding things and not using a walker. , he went outside to a store and he was so unsteady that a endoscope technician stopped him and they called the ambulance, but he refused to come to the hospital because he was coming to the hospital frequently. He went outside the day of admission because the day was nice and he was also scared to stay in the house and he was ambulating without any support. He says the walker does not work very good in the outside and he thinks even the cane does not help, so he was walking without any support when after 100 feet, he felt weak and his legs gave way, he fell down. He fell holding the flower pot so he fell slowly and did not hit his head. consciousness and someone called the ambulance and he was brought in here and in the ER, his orthostatics were positive and he was admitted. He wants to go to senior care, he does not want to stay in the apartment anymore, he does not feel safe, he wants to go back to senior care.He has to grind the food to make it easy to swallow. He is seeking placement. He is afraid to live alone because of the risk of falling. He is very unsteady on his feel and lack of balance. denies CP, SOB, abdominal pain, hallucinations, N, V, vision changes. Allergies Allergy/AdvReac Type Severity Reaction Status Date / Time hydralazine Allergy Intermediate rapid drop Verified 12/04/21 15:48 in BP/Vomiting Penicillins AdvReac Mild TIRED Verified 12/04/21 15:48 Home Medications Medication Instructions Recorded Confirmed Type tvfludt-ngzzduxogcgsy-nenzimva 250 1 tab PO BID PRN 10/23/21 12/04/21 History mg-250 mg-65 mg tablet (Excedrin Extra Strength) folic acid 1 mg tablet 1 mg PO QAM #30 tab 10/29/21 12/04/21 Rx multivitamin with folic acid 400 1 tab PO QAM #30 tab 10/29/21 12/04/21 Rx mcg tablet (Daily-Ifeanyi (with folic acid)) potassium chloride 20 mEq 20 meq PO QAM #20 tab 10/29/21 12/04/21 Rx tablet,extended release(part/cryst) thiamine HCl (vitamin B1) 100 mg 100 mg PO QAM #30 tab 10/29/21 12/04/21 Rx tablet cholecalciferol (vitamin D3) 25 1,000 unit PO DAILY 11/10/21 12/04/21 History mcg (1,000 unit) tablet (Vitamin D3) hydroxyzine HCl 25 mg tablet 25 mg PO BID PRN 11/10/21 12/04/21 History amlodipine 5 mg tablet (Norvasc) 5 mg PO QAM #30 tab 11/13/21 12/04/21 Rx Patient History Medical History Adult failure to thrive Alcohol use disorder Ambulatory dysfunction Anemia Anxiety Aortic root dilation Ataxia Bunion of unspecified foot Chronic hyponatremia Dementia DTs (delirium tremens) Esophageal tear Flat foot, acquired Frequent falls Generalized atherosclerosis Generalized weakness Hammer toe, acquired unspecified Hearing deficit Hereditary and idiopathic neuropathy, unspecified History of COVID-19 ? 07/17/20 per records History of esophageal dilatation last done 04/16/21 @ [facility] History of esophageal stricture Hx of fracture of hip Hypertension Hypokalemia Hypomagnesemia [facility] 2500 cc fluid daily restriction was noted in records Sensorineural hearing loss (SNHL) of both ears Subgaleal hemorrhage Surgical History History of esophagogastroduodenoscopy (EGD) (~04/16/21) History of hip surgery s/p fall and fx Family History Other Cancer Hypertension Denies family history of Myocardial infarction Stroke Social History Smoking Status: Former smoker Tobacco Type: Cigarettes Second Hand Exposure: No; Hx Alcohol Use: Yes Alcohol type: beer Alcohol Intake Frequency Comment: 7-10 beers a day, uncertain which kind of beer Hx Substance Use: No Preferred Language: Burkinan Communication Ability: Effective Visual Impairment: No Limitations Hearing Ability: Hard of Hearing Mail Carrier Technician Required: No Beliefs That Will Affect Care: None marital status: Single Current Living Situation: Alone Current Living Situation Comment: [address] Feels Safe at Home: No Is there a partner from a previous relationship who is making you feel unsafe now?: No Assistive Devices: Cane and Walker Review of Systems Review of Systems: All systems reviewed & are unremarkable except as noted in HPI & below Physical Exam Physical Exam: Physical Exam: Constitutional: appearance very thin unkempt Ears, Nose, Mouth and Throat: mucous membranes moist, no injection and skin normal, lazy eyes Cardiovascular: normal S-1 and S-2 and regular rate and rhythm Respiratory: course breath sounds with wheezing Musculoskeletal: no peripheral edema Skin: no stigmata of neurocutaneous disease noted and normal and intact Eyes: extraocular muscles intact (EOMI) and pupils lazy eye on left NEUROLOGIC EXAMINATION: Mental status: Alert and interactive Oriented to person Speech fluent with no evidence of aphasia Cranial Nerves smile eye brow raise Reflexes: Deep tendon reflexes were decreased bilateral LE Sensory: decreased sensation LE decrease sensation GT proprioception decreased Coordination: finger to nose, heel to mckinnon Gait/Stance: Posture rounded shoulders, standing without assistance, but unsteady and unable to balance to walk Motor: Negative for pronator drift of out stretched arms with eyes closed. 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 No acute intracranial abnormalities. Cerebral cortical atrophy
--- NOTE | 2021-12-07 13:21 | Hospitalist Progress Note ---
Date of Service December 07, 2021 Assessment & Plan (1) Ambulatory dysfunction: (2) Ataxia: (3) Alcohol abuse: Plan: 56-year-old male presents with ambulatory dysfunction/ataxia with h/o multiple falls. 1. Ambulatory dysfunction/ataxia/falls- CT head unremarkable. MRI head with no acute finding. Normal B12, TSH, CK. Orthostatics negative. PT recommends rehab. - Consulted neurology- recommendations awaited 2. Orthostatic hypotension: resolved. 3. Alcohol abuse:He says he does not drink as much, last drink was 7-8 beers on Monday. Low concern for withdrawal at this point. On gabapentin alcohol withdrawal protocol and IV Ativan p.r.n. Continue his home thiamine and folic acid. 4. Hyponatremia- improving; He used to be on salt tablets in the past.recheck in am 5. Hypokalemia/hypomagnesemia: resolved 6. Hypertension:BP controlled on norvasc 7. History of esophageal stenosis: He needs to be on a chopped soft diet. DVT ppx- sc heparin Dispo- PT recommends rehab. CM following Admission and Anticipated Discharge Date Admission Date: December 04, 2021 Subjective He is bothered by his imbalance issues- states we must be missing something. Denies any new neurological issues. Physical Exam Physical Exam: General: Looks older than stated age, sitting comfortably in bed, not in distress, on room air HEENT: EOMI, JORGE A, MMM Chest: Clear breath sounds bilaterally, no wheezes or crackles CVS: Regular rate and rhythm, normal heart sounds, no murmur Abdomen: Soft, non tender, not distended, normal bowel sounds Neuro: Awake, alert, oriented, conversing well, non focal. Extremities: No cyanosis, clubbing or edema. Results & Data Results & Data ([facility]) Vital Signs (Past 12 Hours) Vital Signs Temp Pulse Pulse Resp BP BP Pulse Ox 12/07/21 11:15 37.0 C 78 20 145/87 H 97 12/07/21 07:42 37.0 C 68 20 155/96 H 98 12/07/21 07:11 74 12/07/21 04:27 37.1 C 70 18 148/88 H 98 Laboratory Results Short CBC 12/07/21 Range/Units 10:50 25-OH Vitamin D Total 22.1 L (30-100) ng/ml Medications Administered Current Inpatient Medications Acetaminophen (Acetaminophen 325 Mg Tab) 650 mg PO Q4H PRN PRN Reason: Pain or Fever Stop: 01/03/22 21:11 Last Admin: 12/07/21 10:24 Dose: 650 mg Documented by: Amlodipine Besylate (Amlodipine Besylate 5 Mg Tab) [facility] Stop: 01/04/22 08:59 Last Admin: 12/07/21 07:34 Dose: 5 mg Documented by: Clonidine HCl (Clonidine Hcl 0.1 Mg Tab) 0.1 mg PO Q4H PRN PRN Reason: Hypertension Stop: 01/03/22 21:11 Folic Acid (Folic Acid 1 Mg Tab) [facility] Stop: 01/04/22 08:59 Last Admin: 12/07/21 07:34 Dose: 1 mg Documented by: Gabapentin (Gabapentin 600 Mg Tab) 600 mg PO Q24H [facility] Stop: 12/08/21 09:01 Heparin Sodium (Porcine) (Heparin Sod 5,000 Unit/0.5 Ml Vial) 5,000 units SQ Q12 [facility] Stop: 01/03/22 21:11 Last Admin: 12/07/21 07:34 Dose: 5,000 units Documented by: Hydroxyzine HCl (Hydroxyzine Hcl 25 Mg Tab) 25 mg PO BID PRN PRN Reason: Itching Stop: 01/03/22 21:11 Lorazepam (Lorazepam 2 Mg/1 Ml Vial) 1 mg IV UD PRN; Protocol PRN Reason: EtOH Withdrawl AWSS Score 6,7 Stop: 01/03/22 21:11 Lorazepam (Lorazepam 2 Mg/1 Ml Vial) 2 mg IV UD PRN; Protocol PRN Reason: EtOH Withdrawl AWSS Score 8,9 Stop: 01/03/22 21:11 Lorazepam (Lorazepam 2 Mg/1 Ml Vial) 3 mg IV ONCE PRN; Protocol PRN Reason: EtOH Withdrawl AWSS Score >=10 Multivitamins (Multivitamin Tab) 1 [facility] Stop: 01/04/22 08:59 Last Admin: 12/07/21 07:34 Dose: 1 tab Documented by: Nitroglycerin (Nitroglycerin Sl 0.4 Mg/Tab Tab) 0.4 mg SL Q5M PRN PRN Reason: Chest Pain Stop: 01/03/22 21:11 Potassium Chloride (Potassium Chloride Crtab 20 Meq Tabcr) 20 meq PO QAM [facility] Stop: 01/04/22 08:59 Last Admin: 12/07/21 07:34 Dose: 20 meq Documented by: Thiamine HCl (Thiamine Hcl 100 Mg Tab) 100 mg PO QAM [facility] Stop: 01/04/22 08:59 Last Admin: 12/07/21 07:34 Dose: 100 mg Documented by: Vitamin D (Cholecalciferol 1,000 Units 25 Mcg Tab) 1,000 units PO DAILY [facility] Stop: 01/04/22 08:59 Last Admin: 12/07/21 07:34 Dose: 1,000 units Documented by:
[2021-12-07] MEDS ORDERED: GADOBUTROL 65ML VIAL IV ONE (23:07)
[2021-12-08] MEDS: amLODIPine BESYLATE 5 MG TAB PO SCH (08:22)
[2021-12-08] MEDS: POTASSIUM CHLORIDE CRTAB 20 MEQ TABCR PO SCH (08:22)
[2021-12-08] MEDS: THIAMINE HCL 100 MG TAB PO SCH (08:22)
[2021-12-08] MEDS: MULTIVITAMIN TAB PO SCH (08:22)
[2021-12-08] MEDS: CHOLECALCIFEROL 1,000 UNITS 25 MCG TAB PO SCH (08:22)
[2021-12-08] MEDS: FOLIC ACID 1 MG TAB PO SCH (08:22)
[2021-12-08] MEDS: HEPARIN SOD 5,000 UNIT/0.5 ML VIAL SQ SCH ×2 (08:23→19:46)
--- NOTE | 2021-12-08 08:31 | Magnetic Resonance Report ---
MRI OF THE CERVICAL SPINE WITH AND WITHOUT CONTRAST CLINICAL HISTORY: Ataxia. COMPARISON: Cervical spine CT September 06, 2021. TECHNIQUE: Utilizing a 1.5 Janessa magnet and dedicated coil, multiplanar, multiecho imaging of the ce rvical spine was performed before and after intravenous administration of 7 of Gadavist. FINDINGS: There is reversal of the normal cervical lordosis. Vertebral body heights are maintained. There is no suspicious marrow replacement. No intracanalicular mass or fluid collection is present. There is no abnormal enhancement within the cervical canal. There may be mild increased T2 signal within the cord at the C4-C5 level, shown on sagittal sequence image 9 of 18. This could be artifactual. Paravertebr al soft tissues are unremarkable. Severe multilevel disc space narrowing is noted as well as facet ar throsis. C2-C3: The central canal is patent. Moderate right and mild left neural foraminal stenosis is due to facet arthrosis C3-C4: Moderate central canal stenosis is noted predominantly due to ligamentous hypertrophy. Severe left and moderate right neural foraminal stenosis due to facet arthrosis and uncovertebral hypertrop hy is present. C4-C5: Marked disc space narrowing is noted. There is posterior disc osteophyte complex with ligamen tous hypertrophy. Severe narrowing of the central canal is noted. Patent AP diameter of the canal at the 4 mm. Severe left and mild right neural foraminal stenosis is present C5-C6: Marked disc space narrowing is noted. There is mild posterior disc osteophyte complex. There is moderate central canal stenosis. Severe left and moderate right neural foraminal stenosis is prese nt C6-C7: Posterior disc osteophyte complex results in moderate central canal stenosis. Severe bilatera l neural foraminal stenosis is present. C7-T1: Central canal is patent. Moderate left and mild right neural foraminal stenosis is present. IMPRESSION: 1. Severe multilevel degenerative changes within the cervical spine. 2. Severe central canal stenosis at C4-C5. Possible cord signal abnormality at this level. Although t his could be artifactual, mild cord edema or myelomalacia cannot be excluded. 3. Moderate central canal stenosis at additional levels, as described above. 4. Severe multilevel neural foraminal stenosis, as detailed above. ACT 112: Negative or not required by law. Electronically signed by: Kalin Roberts M.D. 12/08/2021 8:29 AM
[2021-12-08] MEDS ORDERED: GABAPENTIN 600 MG TAB PO SCH (09:00)
[2021-12-08 09:37] LABS: BUN Creatinine Ratio 5.9 (10-20); Calcium 9.2 mg/dl (8.5-10.1); Est GFR (African American) 138.3 ml/min; Est GFR (Non-African American) 119.3 ml/min; Magnesium 1.6 mg/dl (1.7-2.4); Phosphorus 3.6 mg/dl (2.5-4.9); Potassium 3.8 mmol/L (3.5-5.1)
[2021-12-08] MEDS: ACETAMINOPHEN 325 MG TAB PO PRN ×2 (09:57→19:56)
--- NOTE | 2021-12-08 10:20 | Orthopedic Consultation ---
Date of Consultation December 08, 2021 Assessment & Plan (1) Myelopathy concurrent with and due to spinal stenosis of cervical region: Assessment cervical spinal stenosis with myelomalacia. Plan at this time his MRI of the cervical spine does demonstrate severe multilevel spondylosis with evidence of myelomalacia posterior to C4-C5. There is marked disc base collapse on his MRI and CAT scan at this level. He is bordering on autofusion at this level. He does have bilateral neuroforaminal disease at multiple levels as well. Plan at this time certainly knowledge evidence of possible myelomalacia and cervical myelopathy contributing to his balance issues. I would have her be quite concerned regarding any surgical decompression in light of the history of his falls. He be at extreme risk for falls and permanent neurologic deficit. His imaging does demonstrate no evidence of instability in the beginnings of autofusion. I am not convinced any surgical decompression would provide any marked change in his status or improvement of his function. I would await final neurology work-up. History of Present Illness Reason for Consultation: Difficulty ambulating Attending Physician: Arnold Chamorro MD History of Present Illness This is a 56-year-old male who presents with a history of marked decline in a bility to ambulate without losing his balance. He has had several falls and several fractures secondary to his balance issues. He describes a generalized weakness. He does not note any specific numbness and tingling into the upper extremities. He states this has been progressive over the past 4 years with a marked decline over the past several months. Allergies Allergy/AdvReac Type Severity Reaction Status Date / Time hydralazine Allergy Intermediate rapid drop Verified 12/04/21 15:48 in BP/Vomiting Penicillins AdvReac Mild TIRED Verified 12/04/21 15:48 Home Medications Medication Instructions Recorded Confirmed Type owroovl-muvamqacnumyu-hclcpsqt 250 1 tab PO BID PRN 10/23/21 12/04/21 History mg-250 mg-65 mg tablet (Excedrin Extra Strength) folic acid 1 mg tablet 1 mg PO QAM #30 tab 10/29/21 12/04/21 Rx multivitamin with folic acid 400 1 tab PO QAM #30 tab 10/29/21 12/04/21 Rx mcg tablet (Daily-Ifeanyi (with folic acid)) potassium chloride 20 mEq 20 meq PO QAM #20 tab 10/29/21 12/04/21 Rx tablet,extended release(part/cryst) thiamine HCl (vitamin B1) 100 mg 100 mg PO QAM #30 tab 10/29/21 12/04/21 Rx tablet cholecalciferol (vitamin D3) 25 1,000 unit PO DAILY 11/10/21 12/04/21 History mcg (1,000 unit) tablet (Vitamin D3) hydroxyzine HCl 25 mg tablet 25 mg PO BID PRN 11/10/21 12/04/21 History amlodipine 5 mg tablet (Norvasc) 5 mg PO QAM #30 tab 11/13/21 12/04/21 Rx Patient History Medical History Adult failure to thrive Alcohol use disorder Ambulatory dysfunction Anemia Anxiety Aortic root dilation Ataxia Bunion of unspecified foot Chronic hyponatremia Dementia DTs (delirium tremens) Esophageal tear Flat foot, acquired Frequent falls Generalized atherosclerosis Generalized weakness Hammer toe, acquired unspecified Hearing deficit Hereditary and idiopathic neuropathy, unspecified History of COVID-19 ? 07/17/20 per records History of esophageal dilatation last done 04/16/21 @ [facility] History of esophageal stricture Hx of fracture of hip Hypertension Hypokalemia Hypomagnesemia [facility] 2500 cc fluid daily restriction was noted in records Sensorineural hearing loss (SNHL) of both ears Subgaleal hemorrhage Surgical History History of esophagogastroduodenoscopy (EGD) (~04/16/21) History of hip surgery s/p fall and fx Family History Other Cancer Hypertension Denies family history of Myocardial infarction Stroke Social History Smoking Status: Former smoker Tobacco Type: Cigarettes Second Hand Exposure: No; Hx Alcohol Use: Yes Alcohol type: beer Alcohol Intake Frequency Comment: 7-10 beers a day, uncertain which kind of beer Hx Substance Use: No Preferred Language: Lao Communication Ability: Effective Visual Impairment: No Limitations Hearing Ability: Hard of Hearing Executive 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 He has reasonable strength testing upper extremities. No gross Lhermitte's phenomenon. He was able to ambulate forward for me. He is ataxic. He cannot heel and toe walk without falling. Positive Romberg sign. Results & Data ([facility]) Vital Signs (Past 12 Hours) Vital Signs Temp Pulse Pulse Resp BP BP Pulse Ox 12/08/21 07:16 74 12/08/21 06:42 36.8 C 99 H 18 156/97 H 98 12/08/21 03:06 36.8 C 80 18 135/86 93 12/07/21 23:42 36.8 C 83 18 124/86 98
--- NOTE | 2021-12-08 15:33 | Communication Note ---
Date of Service: December 08, 2021 Aaron was seen today he was resting in bed he was much less irritable and apparently has been seen by Dr. Lucio and the spine team as his MRI of the cervical spine showed fairly significant stenosis and a possible cord signal although I am not impressed with the latter and clinically he really does not have upgoing toes and his ataxia is probably better explained on the basis of his sensory neuropathy coupled with an anterior lobe cerebellar degeneration all likely due to alcohol toxicity and associated nutritional deficiencies He will need to have physical therapy and I think should be in some form of extended care facility or personal care facility with close observation after discharge Right now he will need an EMG on an outpatient basis to document the presence or absence of a neuropathy which I think is clearly present clinically He needs to continue his multivitamin and thiamine therapy There is no evidence on cervical MRI for copper deficiency or evidence that he may have been using nitrous oxide surreptitiously or that he had B12 deficiency of significant degree All of the above entities would have been associated with a long area of demyelination in the posterior column pathways that was not seen Right now neurology is going to sign off as we do not have any further recommendations other than he be scheduled for an outpatient EMG and we will arrange this through our office David Ji MD
--- NOTE | 2021-12-08 15:57 | Hospitalist Progress Note ---
Date of Service December 08, 2021 Assessment & Plan (1) Ambulatory dysfunction: (2) Ataxia: (3) Alcohol abuse: Plan: 56-year-old male presents with ambulatory dysfunction/ataxia with h/o multiple falls. 1. Ambulatory dysfunction/ataxia/falls - CT head unremarkable. MRI head with no acute finding. - MRI C spine with 1. Severe multilevel degenerative changes within the cervical spine. 2. Severe central canal stenosis at C4-C5. Possible cord signal abnorma lity at this level. Although this could be artifactual, mild cord edema or myelomalacia cannot be excluded. 3. Moderate central canal stenosis at additional levels, as described above. 4. Severe multilevel neural foraminal stenosis, - Normal B12, TSH, CK. Orthostatics negative. 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 Orthostatic hypotension: resolved. 3. Alcohol abuse:He says he does not drink as much, last drink was 7-8 beers on Monday. Low concern for withdrawal at this point. On gabapentin alcohol withdrawal protocol and IV Ativan p.r.n. Continue his home thiamine and folic acid. 4. Hyponatremia- improving; He used to be on salt tablets in the past.recheck in am 5. Hypomagnesemia: repleted 6. Hypertension:BP controlled on norvasc 7. History of esophageal stenosis: He needs to be on a chopped soft diet. DVT ppx- sc heparin Dispo- PT recommends rehab. CM following. Admission and Anticipated Discharge Date Admission Date: December 04, 2021 Subjective No new issues. No improvement or worsening of his symptoms. Discussed about the MRI findings and ortho recommendations. Physical Exam Physical Exam: General: Sitting comfortably in chair, not in distress, on room air HEENT: EOMI, JORGE A, MMM Chest: Clear breath sounds bilaterally, no wheezes or crackles CVS: Regular rate and rhythm, normal heart sounds, no murmur Abdomen: Soft, non tender, not distended, normal bowel sounds Neuro: Awake, alert, oriented, conversing well, non focal. Extremities: No cyanosis, clubbing or edema. Results & Data Results & Data ([facility]) Vital Signs (Past 12 Hours) Vital Signs Temp Pulse Pulse Resp BP BP Pulse Ox 12/08/21 15:41 86 12/08/21 14:46 36.9 C 77 20 147/88 H 98 12/08/21 11:20 36.7 C 86 20 169/80 H 98 12/08/21 07:16 74 12/08/21 06:42 36.8 C 99 H 18 156/97 H 98 Laboratory Results BMP 12/08/21 08:40 Sodium 131 L Potassium 3.8 Chloride 97 L Carbon Dioxide 26 BUN 3 L Creatinine 0.51 L Glucose 88 Calcium 9.2 Diagnostic Findings Cervical Spine MRI 12/07/21 16:29 MRI OF THE CERVICAL SPINE WITH AND WITHOUT CONTRAST CLINICAL HISTORY: Ataxia. COMPARISON: Cervical spine CT September 06, 2021. TECHNIQUE: Utilizing a 1.5 Janessa magnet and dedicated coil, multiplanar, multiecho imaging of the cervical spine was performed before and after intravenous administration of 7 of Gadavist. FINDINGS: There is reversal of the normal cervical lordosis. Vertebral body heights are maintained. There is no suspicious marrow replacement. No intracanalicular mass or fluid collection is present. There is no abnormal enhancement within the cervical canal. There may be mild increased T2 signal within the cord at the C4- C5 level, shown on sagittal sequence image 9 of 18. This could be artifactual. Paravertebral soft tissues are unremarkable. Severe multilevel disc space narrowing is noted as well as facet arthrosis. C2-C3: The central canal is patent. Moderate right and mild left neural foraminal stenosis is due to facet arthrosis C3-C4: Moderate central canal stenosis is noted predominantly due to ligamentous hypertrophy. Severe left and moderate right neural foraminal stenosis due to facet arthrosis and uncovertebral hypertrophy is present. C4-C5: Marked disc space narrowing is noted. There is posterior disc osteophyte complex with ligamentous hypertrophy. Severe narrowing of the central canal is noted. Patent AP diameter of the canal at the 4 mm. Severe left and mild right neural foraminal stenosis is present C5-C6: Marked disc space narrowing is noted. There is mild posterior disc osteophyte complex. There is moderate central canal stenosis. Severe left and moderate right neural foraminal stenosis is present C6-C7: Posterior disc osteophyte complex results in moderate central canal stenosis. Severe bilateral neural foraminal stenosis is present. C7-T1: Central canal is patent. Moderate left and mild right neural foraminal stenosis is present. IMPRESSION: 1. Severe multilevel degenerative changes within the cervical spine. 2. Severe central canal stenosis at C4-C5. Possible cord signal abnormality at this level. Although this could be artifactual, mild cord edema or myelomalacia cannot be excluded. 3. Moderate central canal stenosis at additional levels, as described above. 4. Severe multilevel neural foraminal stenosis, as detailed above. ACT 112: Negative or not required by law. Electronically signed by: Kalin Roberts M.D. 12/08/2021 8:29 AM Medications Administered Current Inpatient Medications Acetaminophen (Acetaminophen 325 Mg Tab) 650 mg PO Q4H PRN PRN Reason: Pain or Fever Stop: 01/03/22 21:11 Last Admin: 12/08/21 09:57 Dose: 650 mg Documented by: Amlodipine Besylate (Amlodipine Besylate 5 Mg Tab) 5 mg PO QAM [facility] Stop: 01/04/22 08:59 Last Admin: 12/08/21 08:22 Dose: 5 mg Documented by: Clonidine HCl (Clonidine Hcl 0.1 Mg Tab) 0.1 mg PO Q4H PRN PRN Reason: Hypertension Stop: 01/03/22 21:11 Folic Acid (Folic Acid 1 Mg Tab) 1 mg PO QAM [facility] Stop: 01/04/22 08:59 Last Admin: 12/08/21 08:22 Dose: 1 mg Documented by: Heparin Sodium (Porcine) (Heparin Sod 5,000 Unit/0.5 Ml Vial) 5,000 units SQ Q12 [facility] Stop: 01/03/22 21:11 Last Admin: 12/08/21 08:23 Dose: 5,000 units Documented by: Hydroxyzine HCl (Hydroxyzine Hcl 25 Mg Tab) 25 mg PO BID PRN PRN Reason: Itching Stop: 01/03/22 21:11 Lorazepam (Lorazepam 2 Mg/1 Ml Vial) 1 mg IV UD PRN; Protocol PRN Reason: EtOH Withdrawl AWSS Score 6,7 Stop: 01/03/22 21:11 Lorazepam (Lorazepam 2 Mg/1 Ml Vial) 2 mg IV UD PRN; Protocol PRN Reason: EtOH Withdrawl AWSS Score 8,9 Stop: 01/03/22 21:11 Lorazepam (Lorazepam 2 Mg/1 Ml Vial) 3 mg IV ONCE PRN; Protocol PRN Reason: EtOH Withdrawl AWSS Score >=10 Multivitamins (Multivitamin Tab) 1 tab PO QAM [facility] Stop: 01/04/22 08:59 Last Admin: 12/08/21 08:22 Dose: 1 tab Documented by: Nitroglycerin (Nitroglycerin Sl 0.4 Mg/Tab Tab) 0.4 mg SL Q5M PRN PRN Reason: Chest Pain Stop: 01/03/22 21:11 Potassium Chloride (Potassium Chloride Crtab 20 Meq Tabcr) [facility]: 01/04/22 08:59 Last Admin: 12/08/21 08:22 Dose: 20 meq Documented by: Thiamine HCl (Thiamine Hcl 100 Mg Tab) 100 mg PO QAM [facility] Stop: 01/04/22 08:59 Last Admin: 12/08/21 08:22 Dose: 100 mg Documented by: Vitamin D (Cholecalciferol 1,000 Units 25 Mcg Tab) 1,000 units PO DAILY [facility] Stop: 01/04/22 08:59 Last Admin: 12/08/21 08:22 Dose: 1,000 units Documented by:
[2021-12-08] MEDS: MAGNESIUM OXIDE 400 MG TAB PO SCH (19:46)
[2021-12-09] MEDS: ACETAMINOPHEN 325 MG TAB PO PRN ×3 (08:20→22:28)
[2021-12-09] MEDS: MAGNESIUM OXIDE 400 MG TAB PO SCH ×2 (08:20→19:47)
[2021-12-09] MEDS: CHOLECALCIFEROL 1,000 UNITS 25 MCG TAB PO SCH (08:20)
[2021-12-09] MEDS: THIAMINE HCL 100 MG TAB PO SCH (08:20)
[2021-12-09] MEDS: amLODIPine BESYLATE 5 MG TAB PO SCH (08:21)
[2021-12-09] MEDS: MULTIVITAMIN TAB PO SCH (08:21)
[2021-12-09] MEDS: POTASSIUM CHLORIDE CRTAB 20 MEQ TABCR PO SCH (08:21)
[2021-12-09] MEDS: FOLIC ACID 1 MG TAB PO SCH (08:21)
[2021-12-09] MEDS: HEPARIN SOD 5,000 UNIT/0.5 ML VIAL SQ SCH ×2 (08:21→19:46)
--- NOTE | 2021-12-09 17:12 | Hospitalist Progress Note ---
Date of Service December 09, 2021 Assessment & Plan (1) Ambulatory dysfunction: (2) Ataxia: (3) Alcohol abuse: Plan: 56-year-old male presents with ambulatory dysfunction/ataxia with h/o multiple falls. 1. Ambulatory dysfunction/ataxia/falls - CT head unremarkable. MRI head with no acute finding. - MRI C spine with 1. Severe multilevel degenerative changes within the cervical spine. 2. Severe central canal stenosis at C4-C5. Possible cord signal abnorma lity at this level. Although this could be artifactual, mild cord edema or myelomalacia cannot be excluded. 3. Moderate central canal stenosis at additional levels, as described above. 4. Severe multilevel neural foraminal stenosis, - Normal B12, TSH, CK. Orthostatics negative. 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 Orthostatic hypotension: resolved. 3. Alcohol abuse:He says he does not drink as much, last drink was 7-8 beers on Monday. Low concern for withdrawal at this point. On gabapentin alcohol withdrawal protocol and IV Ativan p.r.n. Continue his home thiamine and folic acid. 4. Hyponatremia- improving; He used to be on salt tablets in the past.recheck intermittently 5. Hypomagnesemia: repleted 6. Hypertension:BP controlled on norvasc 7. History of esophageal stenosis: He needs to be on a chopped soft diet. DVT ppx- sc heparin Dispo- PT recommends SNF. CM following. Admission and Anticipated Discharge Date Admission Date: December 04, 2021 Subjective Still feels weak and has balance issues. He would like to go to SNF. He would like to speak with CM. No other issues. Physical Exam Physical Exam: General: Sitting comfortably in chair, not in distress, on room air HEENT: EOMI, JORGE A, MMM Chest: Clear breath sounds bilaterally, no wheezes or crackles CVS: Regular rate and rhythm, normal heart sounds, no murmur Abdomen: Soft, non tender, not distended, normal bowel sounds Neuro: Awake, alert, oriented, conversing well, non focal. Extremities: No cyanosis, clubbing or edema. Results & Data Results & Data ([facility]) Vital Signs (Past 12 Hours) Vital Signs Temp Pulse Resp BP Pulse Ox 12/09/21 14:45 37.1 C 75 18 127/78 96
[2021-12-10] MEDS: amLODIPine BESYLATE 5 MG TAB PO SCH (08:18)
[2021-12-10] MEDS: FOLIC ACID 1 MG TAB PO SCH (08:18)
[2021-12-10] MEDS: ENOXAPARIN INJ 40 MG/0.4 ML SYR SQ SCH (08:18)
[2021-12-10] MEDS: CHOLECALCIFEROL 1,000 UNITS 25 MCG TAB PO SCH (08:19)
[2021-12-10] MEDS: THIAMINE HCL 100 MG TAB PO SCH (08:19)
[2021-12-10] MEDS: MAGNESIUM OXIDE 400 MG TAB PO SCH ×2 (08:19→20:11)
[2021-12-10] MEDS: MULTIVITAMIN TAB PO SCH (08:19)
[2021-12-10] MEDS: POTASSIUM CHLORIDE 20 MEQ/15 ML UDC PO SCH (09:51)
[2021-12-10] MEDS: ACETAMINOPHEN 325 MG TAB PO PRN ×2 (09:51→16:20)
--- NOTE | 2021-12-10 11:21 | Hospitalist Progress Note ---
Date of Service December 10, 2021 Assessment & Plan (1) Ambulatory dysfunction: (2) Ataxia: (3) Alcohol abuse: Plan: 56-year-old male presents with ambulatory dysfunction/ataxia with h/o multiple falls. 1. Ambulatory dysfunction/ataxia/falls - CT head unremarkable. MRI head with no acute finding. - MRI C spine with 1. Severe multilevel degenerative changes within the cervical spine. 2. Severe central canal stenosis at C4-C5. Possible cord signal abnorma lity at this level. Although this could be artifactual, mild cord edema or myelomalacia cannot be excluded. 3. Moderate central canal stenosis at additional levels, as described above. 4. Severe multilevel neural foraminal stenosis, - Normal B12, TSH, CK. Orthostatics negative. 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 Orthostatic hypotension: resolved. 3. Alcohol abuse:He says he does not drink as much, last drink was 7-8 beers on Monday. Low concern for withdrawal at this point. On gabapentin alcohol withdrawal protocol and IV Ativan p.r.n. Continue his home thiamine and folic acid. 4. Hyponatremia- improving; He used to be on salt tablets in the past.recheck intermittently 5. Hypomagnesemia/hypokalemia: on supplementation- recheck labs in am 6. Hypertension:BP controlled on norvasc- adjust dose as indicated 7. History of esophageal stenosis: He needs to be on a chopped soft diet. 8. Vitamin D deficiency- Vit D 22.1 on 12/07. on oral supplementation DVT ppx- sc lovenox Dispo- PT recommends SNF. CM following. Admission and Anticipated Discharge Date Admission Date: December 04, 2021 Subjective He was upset that he was transferred to a different room at 3 am. Still has balance issues. 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 He would like to talk to CM. Physical Exam Physical Exam: General: Sitting comfortably in bed, not in distress, on room air HEENT: EOMI, JORGE A, MMM Chest: Clear breath sounds bilaterally, no wheezes or crackles CVS: Regular rate and rhythm, normal heart sounds, no murmur Abdomen: Soft, non tender, not distended, normal bowel sounds Neuro: Awake, alert, oriented, conversing well, non focal. Extremities: No cyanosis, clubbing or edema. Results & Data Results & Data ([facility]) Vital Signs (Past 12 Hours) Vital Signs Temp Pulse Resp BP BP Pulse Ox 12/10/21 07:57 82 18 144/87 H 148/88 H 100 12/10/21 07:38 37 C 76 18 164/104 H 99 12/10/21 03:52 36.5 C 75 20 152/88 H 99
[2021-12-11 08:22] LABS: Hematocrit (blood only) 35.8 % (42-52); Hemoglobin 11.4 g/dL (14.0-18.0); Mean Corpuscular Hemoglobin 27.5 pg (25-34); Mean Corpuscular Hgb Conc 31.8 g/dL (32-36); Mean Corpuscular Volume 86.3 fL (80-100); Mean Platelet Volume 8.5 fL (7.4-10.4); Platelet Count 432 K/uL (130-400); RDW Coefficient of Variation 15.4 % (11.5-14.5); RDW Standard Deviation 48.9 fL (36.4-46.3); Red Blood Count 4.15 M/uL (4.7-6.1); White Blood Count 6.67 K/uL (4.8-10.8)
[2021-12-11 08:40] LABS: BUN Creatinine Ratio 8.3 (10-20); Calcium 9.3 mg/dl (8.5-10.1); Creatinine Clr Calc Pharmacy 137.2 ml/min; Est GFR (African American) 129.4 ml/min; Est GFR (Non-African American) 111.6 ml/min; Potassium 4.2 mmol/L (3.5-5.1)
[2021-12-11] MEDS: ACETAMINOPHEN 325 MG TAB PO PRN ×2 (10:25→19:53)
[2021-12-11] MEDS: THIAMINE HCL 100 MG TAB PO SCH (10:26)
[2021-12-11] MEDS: POTASSIUM CHLORIDE 20 MEQ/15 ML UDC PO SCH (10:26)
[2021-12-11] MEDS: ENOXAPARIN INJ 40 MG/0.4 ML SYR SQ SCH (10:26)
[2021-12-11] MEDS: amLODIPine BESYLATE 5 MG TAB PO SCH (10:27)
[2021-12-11] MEDS: MULTIVITAMIN TAB PO SCH (10:27)
[2021-12-11] MEDS: MAGNESIUM OXIDE 400 MG TAB PO SCH ×2 (10:27→19:53)
[2021-12-11] MEDS: CHOLECALCIFEROL 1,000 UNITS 25 MCG TAB PO SCH (10:27)
[2021-12-11] MEDS: FOLIC ACID 1 MG TAB PO SCH (10:27)
--- NOTE | 2021-12-11 19:01 | Hospitalist Progress Note ---
Date of Service December 11, 2021 Assessment & Plan (1) Ambulatory dysfunction: (2) Ataxia: (3) Alcohol abuse: Plan: 56-year-old male presents with ambulatory dysfunction/ataxia with h/o multiple falls. He is being managed for the followin. Ambulatory dysfunction/ataxia/falls - CT head unremarkable. MRI head with no acute finding. - MRI C spine with 1. Severe multilevel degenerative changes within the cervical spine. 2. Severe central canal stenosis at C4-C5. Possible cord signal abnormality at this level. Although this could be artifactual, mild cord edema or myelomalacia cannot be excluded. 3. Moderate central canal stenosis at additional levels, as described above. 4. Severe multilevel neural foraminal stenosis, - Normal B12, TSH, CK. Orthostatics negative. 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 2. Orthostatic hypotension: resolved. 3. 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 On gabapentin alcohol withdrawal protocol and IV Ativan p.r.n. Continue his home thiamine and folic acid. 4. Hyponatremia- improving;patient has been noncompliant with salt restricted diet and fluid restriction. Patient has always demanded he be released from fluid restriction in the past. Continue to monitor. 5. Hypomagnesemia/hypokalemia:Monitor and replete as appropriate. 6. Hypertension:BP controlled on norvasc- adjust dose as indicated 7. History of esophageal stenosis: He needs to be on a chopped soft diet. 8. Vitamin D deficiency- Vit D 22.1 on 12/07. on oral supplementation DVT ppx- sc lovenox Dispo- PT recommends SNF. CM following. Admission and Anticipated Discharge Date Admission Date: December 04, 2021 Subjective Patient seen and examined at bedside as a follow-up of ambulatory dysfunction/ataxia/falls. Patient was lying in bed, on room air, NAD, no new acute events overnight. Patient denies any fever/headache/chills/chest pain/back pain/other review of symptoms. Physical Exam Physical Exam: GENERAL: Alert and oriented x3. NAD, on RA. HEENT: No pallor, no icterus. Pupils equal, round and reactive to light. Oral mucosa moist. NECK: No JVD, no neck masses. HEART: S1 and S2 heard. Regular rate and rhythm. No murmur, no gallop. RESPIRATORY SYSTEM: Normal AP diameter. No accessory muscle use. No wheezing, no crackles. ABDOMEN: Soft, bowel sounds present, nontender, no distention. CENTRAL NERVOUS SYSTEM: No facial droop. Speech is clear. Obeys simple commands. Moves extremities. EXTREMITIES: No edema, no erythema seen. Results & Data Results & Data ([facility]) Vital Signs (Past 12 Hours) Vital Signs Temp Pulse Resp BP Pulse Ox 12/11/21 16:11 36.8 C 81 16 145/87 H 98
[2021-12-11] MEDS: hydrOXYzine HCl 25 MG TAB PO PRN (23:19)
[2021-12-12] MEDS: ACETAMINOPHEN 325 MG TAB PO PRN ×4 (07:45→23:09)
[2021-12-12] MEDS: POTASSIUM CHLORIDE 20 MEQ/15 ML UDC PO SCH (07:46)
[2021-12-12] MEDS: MAGNESIUM OXIDE 400 MG TAB PO SCH ×2 (07:46→20:53)
[2021-12-12] MEDS: MULTIVITAMIN TAB PO SCH (07:46)
[2021-12-12] MEDS: CHOLECALCIFEROL 1,000 UNITS 25 MCG TAB PO SCH (07:46)
[2021-12-12] MEDS: FOLIC ACID 1 MG TAB PO SCH (07:47)
[2021-12-12] MEDS: THIAMINE HCL 100 MG TAB PO SCH (07:47)
[2021-12-12] MEDS: ENOXAPARIN INJ 40 MG/0.4 ML SYR SQ SCH (07:47)
[2021-12-12] MEDS: amLODIPine BESYLATE 5 MG TAB PO SCH (07:47)
--- NOTE | 2021-12-12 16:13 | Hospitalist Progress Note ---
Date of Service December 12, 2021 Assessment & Plan (1) Ambulatory dysfunction: (2) Ataxia: (3) Alcohol abuse: Plan: 56-year-old male presents with ambulatory dysfunction/ataxia with h/o multiple falls. He is being managed for the followin. Ambulatory dysfunction/ataxia/falls - CT head unremarkable. MRI head with no acute finding. - MRI C spine with 1. Severe multilevel degenerative changes within the cervical spine. 2. Severe central canal stenosis at C4-C5. Possible cord signal abnormality at this level. Although this could be artifactual, mild cord edema or myelomalacia cannot be excluded. 3. Moderate central canal stenosis at additional levels, as described above. 4. Severe multilevel neural foraminal stenosis, - Normal B12, TSH, CK. Orthostatics negative. 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 2. Orthostatic hypotension: resolved. 3. 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 On gabapentin alcohol withdrawal protocol and IV Ativan p.r.n. Continue his home thiamine and folic acid. 4. Hyponatremia- improving;patient has been noncompliant with salt restricted diet and fluid restriction. Patient has always demanded he be released from fluid restriction in the past. Continue to monitor. 5. Hypomagnesemia/hypokalemia:Monitor and replete as appropriate. 6. Hypertension:BP controlled on norvasc- adjust dose as indicated 7. History of esophageal stenosis: He needs to be on a chopped soft diet. 8. Vitamin D deficiency- Vit D 22.1 on 12/07. on oral supplementation 9. Rt foot nail care, consult podiatry on Monday. Not on on-call roster now. DVT ppx- sc lovenox Dispo- PT recommends SNF. CM following. Admission and Anticipated Discharge Date Admission Date: December 04, 2021 Subjective Patient seen and examined at bedside as a follow-up of ambulatory dysfunction/ataxia/falls. Patient was lying in bed, on room air, NAD, no new acute events overnight. Patient denies any fever/headache/chills/chest pain/back pain/other review of symptoms. Physical Exam Physical Exam: GENERAL: Alert and oriented x3. NAD, on RA. HEENT: No pallor, no icterus. Pupils equal, round and reactive to light. Oral mucosa moist. NECK: No JVD, no neck masses. HEART: S1 and S2 heard. Regular rate and rhythm. No murmur, no gallop. RESPIRATORY SYSTEM: Normal AP diameter. No accessory muscle use. No wheezing, no crackles. ABDOMEN: Soft, bowel sounds present, nontender, no distention. CENTRAL NERVOUS SYSTEM: No facial droop. Speech is clear. Obeys simple commands. Moves extremities. EXTREMITIES: No edema, no erythema seen. Results & Data Results & Data ([facility]) Vital Signs (Past 12 Hours) Vital Signs Temp Pulse Resp BP Pulse Ox 12/12/21 07:29 36.4 C L 77 16 163/92 H 99
[2021-12-13] MEDS: amLODIPine BESYLATE 5 MG TAB PO SCH (08:37)
[2021-12-13] MEDS: MULTIVITAMIN TAB PO SCH (08:37)
[2021-12-13] MEDS: CHOLECALCIFEROL 1,000 UNITS 25 MCG TAB PO SCH (08:37)
[2021-12-13] MEDS: THIAMINE HCL 100 MG TAB PO SCH (08:37)
[2021-12-13] MEDS: FOLIC ACID 1 MG TAB PO SCH (08:37)
[2021-12-13] MEDS: MAGNESIUM OXIDE 400 MG TAB PO SCH ×2 (08:37→19:59)
[2021-12-13] MEDS: POTASSIUM CHLORIDE 20 MEQ/15 ML UDC PO SCH (08:37)
[2021-12-13] MEDS: ACETAMINOPHEN 325 MG TAB PO PRN ×2 (08:41→19:59)
[2021-12-13] MEDS: ENOXAPARIN INJ 40 MG/0.4 ML SYR SQ SCH (08:44)
--- NOTE | 2021-12-13 17:01 | Hospitalist Progress Note ---
Date of Service December 13, 2021 Assessment & Plan (1) Ambulatory dysfunction: (2) Ataxia: (3) Alcohol abuse: Plan: 56-year-old male presents with ambulatory dysfunction/ataxia with h/o multiple falls. He is being managed for the followin. Ambulatory dysfunction/ataxia/falls - CT head unremarkable. MRI head with no acute finding. - MRI C spine with 1. Severe multilevel degenerative changes within the cervical spine. 2. Severe central canal stenosis at C4-C5. Possible cord signal abnormality at this level. Although this could be artifactual, mild cord edema or myelomalacia cannot be excluded. 3. Moderate central canal stenosis at additional levels, as described above. 4. Severe multilevel neural foraminal stenosis, - Normal B12, TSH, CK. Orthostatics negative. 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 2. Orthostatic hypotension: resolved. 3. 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 s/p gabapentin alcohol withdrawal protocol and IV Ativan p.r.n. Continue his home thiamine and folic acid. 4. Hyponatremia- improving;patient has been noncompliant with salt restricted diet and fluid restriction. Patient has always demanded he be released from fluid restriction in the past. Continue to monitor. 5. Hypomagnesemia/hypokalemia:Monitor and replete as appropriate. 6. Hypertension:BP controlled on norvasc- adjust dose as indicated 7. History of esophageal stenosis: He needs to be on a chopped soft diet. 8. Vitamin D deficiency- Vit D 22.1 on 12/07. on oral supplementation 9. Rt foot nail care, consult podiatry on Monday. Not on on-call roster now. DVT ppx- sc lovenox Dispo- PT recommends SNF. CM following. Might benefit from PT/OT re-eval to see DC plan for Home vs Placement. Admission and Anticipated Discharge Date Admission Date: December 04, 2021 Subjective Patient seen and examined at bedside as a follow-up of ambulatory dysfunction/ataxia/falls. Patient was lying in bed, on room air, NAD, no new acute events overnight. Patient denies any fever/headache/chills/chest pain/back pain/other review of symptoms. Physical Exam Physical Exam: GENERAL: Alert and oriented x3. NAD, on RA. HEENT: No pallor, no icterus. Pupils equal, round and reactive to light. Oral mucosa moist. NECK: No JVD, no neck masses. HEART: S1 and S2 heard. Regular rate and rhythm. No murmur, no gallop. RESPIRATORY SYSTEM: Normal AP diameter. No accessory muscle use. No wheezing, no crackles. ABDOMEN: Soft, bowel sounds present, nontender, no distention. CENTRAL NERVOUS SYSTEM: No facial droop. Speech is clear. Obeys simple commands. Moves extremities. EXTREMITIES: No edema, no erythema seen. Results & Data Results & Data ([facility]) Vital Signs (Past 12 Hours) Vital Signs Temp Pulse Resp BP Pulse Ox 12/13/21 14:47 37 C 96 H 18 149/90 H 100 12/13/21 07:26 37.2 C 96 H 16 160/95 H 97
[2021-12-14] MEDS: ENOXAPARIN INJ 40 MG/0.4 ML SYR SQ SCH (07:29)
[2021-12-14] MEDS: FOLIC ACID 1 MG TAB PO SCH (07:30)
[2021-12-14] MEDS: MULTIVITAMIN TAB PO SCH (07:30)
[2021-12-14] MEDS: POTASSIUM CHLORIDE 20 MEQ/15 ML UDC PO SCH (07:30)
[2021-12-14] MEDS: CHOLECALCIFEROL 1,000 UNITS 25 MCG TAB PO SCH (07:30)
[2021-12-14] MEDS: amLODIPine BESYLATE 5 MG TAB PO SCH (07:30)
[2021-12-14] MEDS: MAGNESIUM OXIDE 400 MG TAB PO SCH ×2 (07:30→20:16)
[2021-12-14] MEDS: THIAMINE HCL 100 MG TAB PO SCH (07:30)
--- NOTE | 2021-12-14 10:08 | Podiatry Consultation ---
Date of Consultation December 14, 2021 Assessment & Plan (1) Tinea unguium: toenails of digits 2-5 of both feet debrided with nail nippers to tolerance, no bleeding or infection present patient gave verbal consent for debridement patient will follow up with his podiatric medicine doctor as needed History of Present Illness Reason for Consultation: podiatric toenail care Attending Physician: Eden Paul MD History of Present Illness Patient was seen at bedside this morning due to right and left toenail care Patient noted he sees a podiatric medicine doctor regularly at his nursing facility but noted the podiatric medicine doctor "missed some nails" No other foot concerns noted Allergies Allergy/AdvReac Type Severity Reaction Status Date / Time hydralazine Allergy Intermediate rapid drop Verified 12/04/21 15:48 in BP/Vomiting Penicillins AdvReac Mild TIRED Verified 12/04/21 15:48 Home Medications Medication Instructions Recorded Confirmed Type iogpuyn-dwyoicdfawlig-icyiarea 250 1 tab PO BID PRN 10/23/21 12/04/21 History mg-250 mg-65 mg tablet (Excedrin Extra Strength) folic acid 1 mg tablet 1 mg PO QAM #30 tab 10/29/21 12/04/21 Rx multivitamin with folic acid 400 1 tab PO QAM #30 tab 10/29/21 12/04/21 Rx mcg tablet (Daily-Ifeanyi (with folic acid)) potassium chloride 20 mEq 20 meq PO QAM #20 tab 10/29/21 12/04/21 Rx tablet,extended release(part/cryst) thiamine HCl (vitamin B1) 100 mg 100 mg PO QAM #30 tab 10/29/21 12/04/21 Rx tablet cholecalciferol (vitamin D3) 25 1,000 unit PO DAILY 11/10/21 12/04/21 History mcg (1,000 unit) tablet (Vitamin D3) hydroxyzine HCl 25 mg tablet 25 mg PO BID PRN 11/10/21 12/04/21 History amlodipine 5 mg tablet (Norvasc) 5 mg PO QAM #30 tab 11/13/21 12/04/21 Rx Patient History Medical History Adult failure to thrive Alcohol use disorder Ambulatory dysfunction Anemia Anxiety Aortic root dilation Ataxia Bunion of unspecified foot Chronic hyponatremia Dementia DTs (delirium tremens) Esophageal tear Flat foot, acquired Frequent falls Generalized atherosclerosis Generalized weakness Hammer toe, acquired unspecified Hearing deficit Hereditary and idiopathic neuropathy, unspecified History of COVID-19 ? 07/17/20 per records History of esophageal dilatation last done 04/16/21 @ [facility] History of esophageal stricture Hx of fracture of hip Hypertension Hypokalemia Hypomagnesemia [facility] resident andreeadonnell 2500 cc fluid daily restriction was noted in records Sensorineural hearing loss (SNHL) of both ears Subgaleal hemorrhage Surgical History History of esophagogastroduodenoscopy (EGD) (~04/16/21) History of hip surgery s/p fall and fx Family History Other Cancer Hypertension Denies family history of Myocardial infarction Stroke Social History Smoking Status: Former smoker Tobacco Type: Cigarettes Second Hand Exposure: No; Hx Alcohol Use: Yes Alcohol type: beer Alcohol Intake Frequency Comment: 7-10 beers a day, uncertain which kind of beer Hx Substance Use: No Preferred Language: Persian Communication Ability: Effective Visual Impairment: No Limitations Hearing Ability: Hard of Hearing Swimming Pool Maintenance Required: No Beliefs That Will Affect Care: None marital status: Single Current Living Situation: Alone Current Living Situation Comment: [address] Feels Safe at Home: No Is there a partner from a previous relationship who is making you feel unsafe now?: No Assistive Devices: Cane and Walker Physical Exam Skin: skin clean and dry intact without open wounds toenails of digits 2-5 right foot and 2-5 left foot with severe elongation and thickening present pedal pulses palpable and skin warm and dry without maceration Results & Data ([facility]) Vital Signs (Past 12 Hours) Vital Signs Temp Pulse Resp BP Pulse Ox 12/14/21 07:28 36.6 C 81 16 145/92 H 100
[2021-12-14] MEDS: ACETAMINOPHEN 325 MG TAB PO PRN ×2 (11:01→20:17)
--- NOTE | 2021-12-14 17:01 | Hospitalist Progress Note ---
Date of Service December 14, 2021 Assessment & Plan (1) Ambulatory dysfunction: (2) Ataxia: (3) Alcohol abuse: Plan: 56-year-old male presents with ambulatory dysfunction/ataxia with h/o multiple falls. He is being managed for the followin. Ambulatory dysfunction/ataxia/falls - CT head unremarkable. MRI head with no acute finding. - MRI C spine with 1. Severe multilevel degenerative changes within the cervical spine. 2. Severe central canal stenosis at C4-C5. Possible cord signal abnormality at this level. Although this could be artifactual, mild cord edema or myelomalacia cannot be excluded. 3. Moderate central canal stenosis at additional levels, as described above. 4. Severe multilevel neural foraminal stenosis, - Normal B12, TSH, CK. Orthostatics negative. 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 2. Orthostatic hypotension: resolved. 3. Alcohol abuse:He says he does not drink as much, last drink was 7-8 beers on Monday [employer]. Low concern for withdrawal at this point. s/p gabapentin alcohol withdrawal protocol and IV Ativan p.r.n. Continue his home thiamine and folic acid. 4. Hyponatremia- improving;patient has been noncompliant with salt restricted diet and fluid restriction. Patient has always demanded he be released from fluid restriction in the past. Continue to monitor. 5. Hypomagnesemia/hypokalemia:Monitor and replete as appropriate. 6. Hypertension:BP controlled on norvasc- adjust dose as indicated 7. History of esophageal stenosis: He needs to be on a chopped soft diet. 8. Vitamin D deficiency- Vit D 22.1 on 12/07. on oral supplementation 9. Rt foot nail care, consult podiatry on Monday. Not on on-call roster now. DVT ppx- sc lovenox Dispo- PT recommends SNF. CM following. Admission and Anticipated Discharge Date Admission Date: December 04, 2021 Subjective Patient seen and examined at bedside as a follow-up of ambulatory dysfunction/ataxia/falls. Patient was lying in bed, on room air, NAD, no new acute events overnight. Patient denies any fever/headache/chills/chest pain/back pain/other review of symptoms. Physical Exam Physical Exam: GENERAL: Alert and oriented x3. NAD, on RA. HEENT: No pallor, no icterus. Pupils equal, round and reactive to light. Oral mucosa moist. NECK: No JVD, no neck masses. HEART: S1 and S2 heard. Regular rate and rhythm. No murmur, no gallop. RESPIRATORY SYSTEM: Normal AP diameter. No accessory muscle use. No wheezing, no crackles. ABDOMEN: Soft, bowel sounds present, nontender, no distention. CENTRAL NERVOUS SYSTEM: No facial droop. Speech is clear. Obeys simple commands. Moves extremities. EXTREMITIES: No edema, no erythema seen. Results & Data Results & Data ([facility]) Vital Signs (Past 12 Hours) Vital Signs Temp Pulse Pulse Resp BP Pulse Ox 12/14/21 15:03 37.2 C 85 16 129/84 97 12/14/21 07:28 36.6 C 81 16 145/92 H 100
[2021-12-15] MEDS: MAGNESIUM OXIDE 400 MG TAB PO SCH ×2 (08:22→20:20)
[2021-12-15] MEDS: CHOLECALCIFEROL 1,000 UNITS 25 MCG TAB PO SCH (08:22)
[2021-12-15] MEDS: amLODIPine BESYLATE 5 MG TAB PO SCH (08:22)
[2021-12-15] MEDS: MULTIVITAMIN TAB PO SCH (08:22)
[2021-12-15] MEDS: THIAMINE HCL 100 MG TAB PO SCH (08:22)
[2021-12-15] MEDS: FOLIC ACID 1 MG TAB PO SCH (08:22)
[2021-12-15] MEDS: POTASSIUM CHLORIDE 20 MEQ/15 ML UDC PO SCH (08:23)
[2021-12-15] MEDS: ENOXAPARIN INJ 40 MG/0.4 ML SYR SQ SCH (08:23)
[2021-12-15] MEDS: ACETAMINOPHEN 325 MG TAB PO PRN ×2 (12:23→19:06)
--- NOTE | 2021-12-15 19:30 | Hospitalist Progress Note ---
Date of Service December 15, 2021 Assessment & Plan (1) Ambulatory dysfunction: (2) Ataxia: (3) Alcohol abuse: Plan: 56-year-old male presents with ambulatory dysfunction/ataxia with h/o multiple falls. He is being managed for the followin. Ambulatory dysfunction/ataxia/falls - CT head unremarkable. MRI head with no acute finding. - MRI C spine with 1. Severe multilevel degenerative changes within the cervical spine. 2. Severe central canal stenosis at C4-C5. Possible cord signal abnormality at this level. Although this could be artifactual, mild cord edema or myelomalacia cannot be excluded. 3. Moderate central canal stenosis at additional levels, as described above. 4. Severe multilevel neural foraminal stenosis, - Normal B12, TSH, CK. Orthostatics negative. 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 2. Orthostatic hypotension: resolved. 3. Alcohol abuse:He says he does not drink as much, last drink was 7-8 beers on Monday [address] [employer]. Low concern for withdrawal at this point. s/p gabapentin alcohol withdrawal protocol and IV Ativan p.r.n. Continue his home thiamine and folic acid. 4. Hyponatremia- improving;patient has been noncompliant with salt restricted diet and fluid restriction. Patient has always demanded he be released from fluid restriction in the past. Continue to monitor. 5. Hypomagnesemia/hypokalemia:Monitor and replete as appropriate. 6. Hypertension:BP controlled on norvasc- adjust dose as indicated 7. History of esophageal stenosis: He needs to be on a chopped soft diet. 8. Vitamin D deficiency- Vit D 22.1 on 12/07. on oral supplementation 9. Rt foot nail care, podiatry evaluated. DVT ppx- sc lovenox Dispo- OT/PT recommends SNF/PCF. CM following. Stable for DC, awaiting placement. Admission and Anticipated Discharge Date Admission Date: December 04, 2021 Subjective Patient seen and examined at bedside as a follow-up of ambulatory dysfunction/ataxia/falls. Patient was lying in bed, on room air, NAD, no new acute events overnight. Patient denies any fever/headache/chills/chest pain/back pain/other review of symptoms. Physical Exam Physical Exam: GENERAL: Alert and oriented x3. NAD, on RA. HEENT: No pallor, no icterus. Pupils equal, round and reactive to light. Oral mucosa moist. NECK: No JVD, no neck masses. HEART: S1 and S2 heard. Regular rate and rhythm. No murmur, no gallop. RESPIRATORY SYSTEM: Normal AP diameter. No accessory muscle use. No wheezing, no crackles. ABDOMEN: Soft, bowel sounds present, nontender, no distention. CENTRAL NERVOUS SYSTEM: No facial droop. Speech is clear. Obeys simple commands. Moves extremities. EXTREMITIES: No edema, no erythema seen. Results & Data Results & Data ([facility]) Vital Signs (Past 12 Hours) Vital Signs Temp Pulse Pulse Resp BP Pulse Ox 12/15/21 15:50 37.2 C 88 16 129/83 97 12/15/21 11:47 36.7 C 88 20 148/84 H 99 12/15/21 07:44 36.4 C L 76 18 140/80 99
[2021-12-15] MEDS: hydrOXYzine HCl 25 MG TAB PO PRN (23:26)
[2021-12-16] MEDS: ACETAMINOPHEN 325 MG TAB PO PRN ×2 (07:41→19:58)
[2021-12-16] MEDS: POTASSIUM CHLORIDE 20 MEQ/15 ML UDC PO SCH (07:43)
[2021-12-16] MEDS: CHOLECALCIFEROL 1,000 UNITS 25 MCG TAB PO SCH (07:44)
[2021-12-16] MEDS: THIAMINE HCL 100 MG TAB PO SCH (07:44)
[2021-12-16] MEDS: MULTIVITAMIN TAB PO SCH (07:44)
[2021-12-16] MEDS: FOLIC ACID 1 MG TAB PO SCH (07:44)
[2021-12-16] MEDS: amLODIPine BESYLATE 5 MG TAB PO SCH (07:46)
[2021-12-16] MEDS: ENOXAPARIN INJ 40 MG/0.4 ML SYR SQ SCH (07:47)
[2021-12-16] MEDS: MAGNESIUM OXIDE 400 MG TAB PO SCH ×2 (10:28→19:58)
--- NOTE | 2021-12-16 19:08 | Hospitalist Progress Note ---
Date of Service December 16, 2021 Assessment & Plan (1) Ambulatory dysfunction: (2) Ataxia: (3) Alcohol abuse: Plan: 56-year-old male presents with ambulatory dysfunction/ataxia with h/o multiple falls. He is being managed for the followin. Ambulatory dysfunction/ataxia/falls - CT head unremarkable. MRI head with no acute finding. - MRI C spine with 1. Severe multilevel degenerative changes within the cervical spine. 2. Severe central canal stenosis at C4-C5. Possible cord signal abnormality at this level. Although this could be artifactual, mild cord edema or myelomalacia cannot be excluded. 3. Moderate central canal stenosis at additional levels, as described above. 4. Severe multilevel neural foraminal stenosis, - Normal B12, TSH, CK. Orthostatics negative. 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 2. Orthostatic hypotension: resolved. 3. 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 Low concern for withdrawal at this point. s/p gabapentin alcohol withdrawal protocol and IV Ativan p.r.n. Continue his home thiamine and folic acid. 4. Hyponatremia- improving;patient has been noncompliant with salt restricted diet and fluid restriction. Patient has always demanded he be released from fluid restriction in the past. Continue to monitor. 5. Hypomagnesemia/hypokalemia:Monitor and replete as appropriate. 6. Hypertension:BP controlled on norvasc- adjust dose as indicated 7. History of esophageal stenosis: He needs to be on a chopped soft diet. 8. Vitamin D deficiency- Vit D 22.1 on 12/07. on oral supplementation 9. Rt foot nail care, podiatry evaluated. DVT ppx- sc lovenox Dispo- OT/PT recommends SNF/PCF. CM following. Stable for DC, awaiting placem ent. CM to assist w/ DC plan per PT/OT. Admission and Anticipated Discharge Date Admission Date: December 04, 2021 Subjective Patient seen and examined at bedside as a follow-up of ambulatory dysfunction/ataxia/falls. Patient was lying in bed, on room air, NAD, no new acute events overnight. Patient denies any fever/headache/chills/chest pain/back pain/other review of symptoms. Physical Exam Physical Exam: GENERAL: Alert and oriented x3. NAD, on RA. HEENT: No pallor, no icterus. Pupils equal, round and reactive to light. Oral mucosa moist. NECK: No JVD, no neck masses. HEART: S1 and S2 heard. Regular rate and rhythm. No murmur, no gallop. RESPIRATORY SYSTEM: Normal AP diameter. No accessory muscle use. No wheezing, no crackles. ABDOMEN: Soft, bowel sounds present, nontender, no distention. CENTRAL NERVOUS SYSTEM: No facial droop. Speech is clear. Obeys simple commands. Moves extremities. EXTREMITIES: No edema, no erythema seen. Results & Data Results & Data ([facility]) Vital Signs (Past 12 Hours) Vital Signs Temp Pulse Pulse Resp BP BP Pulse Ox 12/16/21 15:39 37 C 85 18 123/74 98 12/16/21 14:00 36.5 C 54 L 16 151/78 H 97 12/16/21 07:47 36.3 C L 84 18 140/88 100
[2021-12-17] MEDS: MAGNESIUM OXIDE 400 MG TAB PO SCH (08:14)
[2021-12-17] MEDS: FOLIC ACID 1 MG TAB PO SCH (08:15)
[2021-12-17] MEDS: CHOLECALCIFEROL 1,000 UNITS 25 MCG TAB PO SCH (08:15)
[2021-12-17] MEDS: POTASSIUM CHLORIDE 20 MEQ/15 ML UDC PO SCH (08:16)
[2021-12-17] MEDS: THIAMINE HCL 100 MG TAB PO SCH (08:16)
[2021-12-17] MEDS: ENOXAPARIN INJ 40 MG/0.4 ML SYR SQ SCH (08:16)
[2021-12-17] MEDS: amLODIPine BESYLATE 5 MG TAB PO SCH (08:16)
[2021-12-17] MEDS: MULTIVITAMIN TAB PO SCH (08:16)
[2021-12-17] MEDS: ACETAMINOPHEN 325 MG TAB PO PRN (11:09)
--- NOTE | 2021-12-17 15:02 | Discharge Summary ---
Date of Service December 17, 2021 Admission HPI Per Admitting Provider CHIEF COMPLAINT: Fall. 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 The patient is admitted in the hospital for frequent falls and alcoholism. The patient says he is not drinking heavily as he used to drink, he did not drink in the last 3 days, he drank 6-7 beers 3-4 days ago and he states he is not getting withdrawal symptoms like in the past, but he is having very poor ambulatory status. He is in an apartment. He is no longer feeling safe in the apartment, he is scared that if he falls down, he could not even yell for help. He says he is usually walking with holding things and not using a walker, and 2 days ago, he went outside to a store and he was so unsteady that a cop examiner stopped him and they called the ambulance, but he refused to come to the hospital because he was coming to the hospital frequently. Today again he went outside because the day was nice and he was also scared to stay in the house and he was ambulating without any support. He says the walker does not work very good in the outside and he thinks even the cane does not help, so he was walking without any support when after 100 feet, he felt weak and his legs gave way, he fell down. He fell holding the flower pot so he fell slowly. Did not hit head, no loss of consciousness and someone called the ambulance and he was brought in here and in the ER, his orthostatics were positive, so we were called for admission. Now, the patient wants to go to long-term, he does not want to stay in the apartment anymore, he does not feel safe, he wants to go back to long-term. Denies any headache. [place] dizzy before falling down. Vision is okay. No runny nose, no cough, no fevers, no chest pain, no shortness of breath. He has to grind the food to make it easy to swallow. No nausea, no abdominal pain, normal bowel and bladder movements. ALLERGIES: HYDRALAZINE, PENICILLIN. PAST MEDICAL HISTORY: As mentioned above. PAST SURGICAL HISTORY: EGDs, hip surgery. MEDICATIONS: Currently, the patient seems to be on amlodipine 5 mg p.o. daily, vitamin D 1000 units p.o. daily, Excedrin Extra Strength 1 tablet p.o. b.i.d. p.r.n., folic acid 1 mg p.o. daily, hydroxyzine 25 mg p.o. b.i.d. p.r.n., multivitamins with folic acid 1 tablet daily, potassium chloride 20 mEq p.o. a.m., thiamine 100 mg p.o. a.m. FAMILY HISTORY: Significant for no family history on file. SOCIAL HISTORY: Former smoker. Drinks 6-7 beers daily, the patient states currently he is not drinking every day. No drug use. REVIEW OF SYSTEMS: As per HPI. Rest of the review of systems is negative. Admission Exam Per Admitting Provider GENERAL: The patient is of moderate build, not in acute distress. VITAL SIGNS: Temperature 36.9, pulse 80, respiratory rate 21, blood pressure 180/119, oxygen 99% on room air. HEENT: Pupils equal, round and reactive to light. Oral mucosa moist. NECK: No JVD. No neck masses. CARDIOVASCULAR: S1 and S2 heard. Regular rate and rhythm. No murmur, no gallop. RESPIRATORY SYSTEM: Normal AP diameter. No accessory muscle use. No wheezing, no crackles. ABDOMEN: Soft. Bowel sounds are present, nontender, no distention. CENTRAL NERVOUS SYSTEM: Cranial nerves II through XII are grossly intact. Power, 4/5 in upper extremities and 3/5 in lower extremities. EXTREMITIES: No edema, no erythema. Principal Diagnosis Continued alcohol abuse Weakness and ambulatory dysfunction Discharge Exam GENERAL: Alert and oriented x3. NAD, on RA. HEENT: No pallor, no icterus. Pupils equal, round and reactive to light. Oral mucosa moist. NECK: No JVD, no neck masses. HEART: S1 and S2 heard. Regular rate and rhythm. No murmur, no gallop. RESPIRATORY SYSTEM: Normal AP diameter. No accessory muscle use. No wheezing, no crackles. ABDOMEN: Soft, bowel sounds present, nontender, no distention. CENTRAL NERVOUS SYSTEM: No facial droop. Speech is clear. Obeys simple commands. Moves extremities. EXTREMITIES: No edema, no erythema seen. Discharge Data Allergies Allergy/AdvReac Type Severity Reaction Status Date / Time hydralazine Allergy Intermediate rapid drop Verified 12/04/21 15:48 in BP/Vomiting Penicillins AdvReac Mild TIRED Verified 12/04/21 15:48 Consultations 12/04/21 15:22 ED Decision to Admit Stat 12/07/21 10:00 Consult Neurology Routine 12/08/21 09:29 Consult Orthopedic Surgery Routine 12/14/21 08:56 Consult Podiatry Routine Ordered Studies 12/05/21 13:42 MR brain wo/w con Routine 12/07/21 16:29 MR cervical spine wo/w con Routine Hospital Course (1) Ambulatory dysfunction: (2) Ataxia: (3) Alcohol abuse: 56-year-old male presents with ambulatory dysfunction/ataxia with h/o multiple falls. He was managed for the followin. Ambulatory dysfunction/ataxia/falls - CT head unremarkable. MRI head with no acute finding. - MRI C spine with 1. Severe multilevel degenerative changes within the cervical spine. 2. Severe central canal stenosis at C4-C5. Possible cord signal abnormality at this level. Although this could be artifactual, mild cord edema or myelomalacia cannot be excluded. 3. Moderate central canal stenosis at additional levels, as described above. 4. Severe multilevel neural foraminal stenosis, - Normal B12, TSH, CK. Orthostatics negative. - Seen by ortho- no indication for surgical intervention currently - Seen by neuro- symptoms likely from his sensory neuropathy and anterior lobe cerebellar degeneration due to alcohol toxicity and associated nutritional deficiencies - Neuro recommended OP EMG and continuation of thiamine and multivitamin -Patient continues to drink alcohol. 2. Orthostatic hypotension: resolved. 3. Alcohol abuse:He says he does not drink as much, last drink was 7-8 beers on Monday [employer]ANK[employer]. Low concern for withdrawal at this point. s/p gabapentin alcohol withdrawal protocol and IV Ativan p.r.n. Continue his home thiamine and folic acid. 4. Hyponatremia- improving;patient has been noncompliant with salt restricted diet and fluid restriction. Patient has always demanded he be released from fluid restriction in the past. Continue to monitor. 5. Hypomagnesemia/hypokalemia:Monitor and replete as appropriate. 6. Hypertension:BP controlled on norvasc- adjust dose as indicated 7. History of esophageal stenosis: He needs to be on a chopped soft diet. 8. Vitamin D deficiency- Vit D 22.1 on 12/07. on oral supplementation 9. Rt foot nail care, podiatry evaluated. DVT ppx- sc lovenox Dispo- OT/PT recommends SNF/PCF. High risks of readmission due to his drinking habits and dietary noncompliance leading to electrolyte disturbances and ambulatory dysfunction. Patient walking in the hallway independently per RN. SNF did not accept him because his physical abilities did not meet admit criteria. Since PCF are not covered by his insurance and patient does not have any income, and beds are limited, he was offered by CM, he may need to go out of the [facility] to find a bed at [facility] to with patient declined. If SNF cannot take him, he said he would rather go home and wanted to be discharged to home. RN and CM aware that patient wanted to be discharged home. Patient being discharged home with following instruction at the point of discharge: Follow-up with the primary care physician within a week time. Follow-up with neurology for outpatient EMG set up. Strongly advise against any amount of alcohol drinking in future. Maintain heart healthy, low-sodium diet with fluid restriction of 2 L in 24 hours. Take your medications as prescribed. Total Time Total Time Spent Total Time Spent (In Minutes): 35 Discharge Plan Discharge Items Patient Disposition: Home - Self-Care Reason For Visit: FALL Discharge Diagnosis: Continued alcohol abuse Weakness and ambulatory dysfunction Activity: As commented below Activity Comment: Fall precaution and safety at home. Non-emergency contact: Primary Care Provider Call non-emergency contact if: you have any medication questions, your symptoms worsen and your temperature is above 101 Follow-up/Referrals: Denis Burleson DO [Primary Care Provider] - Diet: Heart Healthy and Low Sodium (2gm) Fluids: 2000ml (8 cups) Addtl Attending Provider Instructions: Follow-up with the primary care physician within a week time. Follow-up with neurology for outpatient EMG set up. Strongly advise against any amount of alcohol drinking in future. Maintain heart healthy, low-sodium diet with fluid restriction of 2 L in 24 hours. Take your medications as prescribed. Pending Studies at Discharge: No Stand-Alone Forms: Prieto Battery, Smoking Cessation Medications and DC Order Prescriptions: New acetaminophen 325 mg Tablet 650 mg PO Q8H PRN (Reason: fever or pain) Qty: 60 RF: 0 magnesium oxide 400 mg (241.3 mg magnesium) Tablet 400 mg PO BID Qty: 60 RF: 0 Continued cholecalciferol (vitamin D3) [Vitamin D3] 25 mcg (1,000 unit) tablet 1,000 unit PO DAILY RF: 0 hydroxyzine HCl 25 mg tablet 25 mg PO BID PRN (Reason: Itching) RF: 0 amlodipine [Norvasc] 5 mg Tablet 5 mg PO QAM Qty: 30 RF: 0 Excedrin Extra Strength 250-250-65 mg Tablet 1 tab PO BID PRN (Reason: Pain) RF: 0 potassium chloride 20 mEq Tablet,Er Particles/Crystals 20 meq PO QAM Qty: 20 RF: 0 folic acid 1 mg Tablet 1 mg PO QAM Qty: 30 RF: 0 multivitamin with folic acid [Daily-Ifeanyi (with folic acid)] 400 mcg Tablet 1 tab PO QAM Qty: 30 RF: 0 thiamine HCl (vitamin B1) 100 mg Tablet 100 mg PO QAM Qty: 30 RF: 0 Discharge Orders: Discharge Order (Routine); Ordered 12/17/21 Ordered By: Eden Paul Admission Data Admit Date/Time: 12/04/21 18:53 Attending Provider: Eden Paul Admit Provider: Marcus Dalton Primary Care Provider: Denis Burleson Other Providers: Tucker,Care ; Marcus Dalton ; David Ji ; Ankit Lucio ; Cecilia Jose
== END 2021-12-17 16:19 | disposition home or self-care (01) | DRG 57 ==
LOC: ED 11:29 → 2W 18:53 → SUATTDRO 18:53 → 2W 20:29 → 3E 12-10 03:38

== ENCOUNTER 2021-12-24 20:46 | Inpatient (IN) ==
[2021-12-24] MEDS ORDERED: MULTI-VITAMIN INFUSION 10 ML, THIAMINE HCL 100 MG, FOLIC ACID 1 MG in SODIUM CHLORIDE 0... IV ONE (21:06)
--- NOTE | 2021-12-24 21:12 | Emergency Department Note ---
History of Present Illness General Chief complaint: Alcohol Intoxication Stated complaint: walking difficulty Time Seen by Provider: 12/24/21 21:00 Source: patient Mode of arrival: ambulatory Limitations: intoxication History of Present Illness This patient a 56-year-old male has a history of alcohol abuse, is brought in after somebody called the ambulance because he was not walking correctly he does admit to drinking but says he last drank this morning he says he is weak and cannot walk. He denies any fall. He says he stumbles when he walks. Denies chest pain or shortness of breath. No abdominal pain no blood or melena stool. He is concerned that he could be withdrawing from alcohol. Denies any headache or head trauma Home Medications Medication Instructions Recorded Confirmed Type [id number] 250 1 tab PO BID PRN 10/23/21 12/04/21 History mg-250 mg-65 mg tablet (Excedrin Extra Strength) folic acid 1 mg tablet 1 mg PO QAM #30 tab 10/29/21 12/04/21 Rx multivitamin with folic acid 400 1 tab PO QAM #30 tab 10/29/21 12/04/21 Rx mcg tablet (Daily-Ifeanyi (with folic acid)) potassium chloride 20 mEq 20 meq PO QAM #20 tab 10/29/21 12/04/21 Rx tablet,extended release(part/cryst) thiamine HCl (vitamin B1) 100 mg 100 mg PO QAM #30 tab 10/29/21 12/04/21 Rx tablet cholecalciferol (vitamin D3) 25 1,000 unit PO DAILY 11/10/21 12/04/21 History mcg (1,000 unit) tablet (Vitamin D3) hydroxyzine HCl 25 mg tablet 25 mg PO BID PRN 11/10/21 12/04/21 History amlodipine 5 mg tablet (Norvasc) 5 mg PO QAM #30 tab 11/13/21 12/04/21 Rx acetaminophen 325 mg tablet 650 mg PO Q8H PRN #60 tab 12/17/21 Rx magnesium oxide 400 mg (241.3 mg 400 mg PO BID #60 tab 12/17/21 Rx magnesium) tablet Allergies Allergy/AdvReac Type Severity Reaction Status Date / Time hydralazine Allergy Intermediate rapid drop Verified 12/04/21 15:48 in BP/Vomiting Penicillins AdvReac Mild TIRED Verified 12/04/21 15:48 Past Med/Surg History Medical History Adult failure to thrive Alcohol use disorder Ambulatory dysfunction Anemia Anxiety Aortic root dilation Ataxia Bunion of unspecified foot Chronic hyponatremia Dementia DTs (delirium tremens) Esophageal tear Flat foot, acquired Frequent falls Generalized atherosclerosis Generalized weakness Hammer toe, acquired unspecified Hearing deficit Hereditary and idiopathic neuropathy, unspecified History of COVID-19 ? 07/17/20 per records History of esophageal dilatation last done 04/16/21 @ [facility] History of esophageal stricture Hx of fracture of hip Hypertension Hypokalemia Hypomagnesemia [facility] resident [facility]chor ochoa [facility] 2500 cc fluid daily restriction was noted in records Sensorineural hearing loss (SNHL) of both ears Subgaleal hemorrhage Surgical History History of esophagogastroduodenoscopy (EGD) (~04/16/21) History of hip surgery s/p fall and fx Family History Other Cancer Hypertension Denies family history of Myocardial infarction Stroke Social History Smoking Status: Former smoker Tobacco Type: Cigarettes Second Hand Exposure: No; Hx Alcohol Use: Yes Alcohol type: beer Alcohol Intake Frequency Comment: 7-10 beers a day, uncertain which kind of beer Hx Substance Use: No Preferred Language: Zambian Communication Ability: Effective Visual Impairment: No Limitations Hearing Ability: Hard of Hearing Target Worker Required: No Beliefs That Will Affect Care: None marital status: Single Current Living Situation: Alone Current Living Situation Comment: [address] Feels Safe at Home: Yes Assistive Devices: Cane and Walker Review of Systems A total of 10 systems reviewed and were otherwise negative Physical Exam Vital Signs Vital Signs - 24 hr 12/24/21 20:53 12/24/21 21:33 12/24/21 21:36 Temperature 36.5 C Temperature Source Oral Pulse Rate 92 H 92 H Pulse Rate [Apical] Respiratory Rate 20 22 22 Respiratory Effort / Characteristics Respiratory Depth Respiratory Pattern Blood Pressure 162/85 H Blood Pressure [Right Arm] Blood Pressure Mean 110 Blood Pressure Mean [Right Arm] Blood Pressure Position Semi-fowlers Blood Pressure Position [Right Arm] Pulse Oximetry 96 92 94 Oxygen Delivery Method Room Air Room Air Room Air Sepsis Recent Fever Within 48 Hours No Sepsis New/Unexplained Change in Mental Status No Sepsis Action Taken by Nursing No Action Required Pulse Oximetry Post Tiitration 92 12/24/21 23:00 Temperature Temperature Source Pulse Rate Pulse Rate [Apical] 103 H Respiratory Rate 19 Respiratory Effort / Characteristics Non-Labored Respiratory Depth Normal Respiratory Pattern Regular Blood Pressure Blood Pressure [Right Arm] 133/78 Blood Pressure Mean Blood Pressure Mean [Right Arm] 96 Blood Pressure Position Blood Pressure Position [Right Arm] Sitting Pulse Oximetry 94 Oxygen Delivery Method Room Air Sepsis Recent Fever Within 48 Hours Sepsis New/Unexplained Change in Mental Status Sepsis Action Taken by Nursing Pulse Oximetry Post Tiitration General: Well developed well nourished somewhat disheveled hard of hearing older male who appears in no acute distress, breathing comfortably on room air. Normal speech HEENT: Normal cephalic atraumatic. Pupils are equal round and reactive to light. Extraocular movements are intact. Oropharynx is pink with moist mucous membranes. No swelling of the mouth lips or tongue. Neck: Supple with a midline trachea. No meningeal signs or stiffness, no JVD or bruits. No Stridor. Chest: Clear to auscultation bilaterally. No wheezes or rhonchi. No increased work of breathing. Heart: Regular rate and rhythm without murmurs or gallops. Abdomen: Soft nontender, nondistended without rebound guarding or rigidity. Extremities: No cyanosis clubbing or edema. No calf tenderness or assymetry Spine/Back. Non tender to palpation. No CVA tenderness Skin: Good turgor without rashes. Neurologic exam: Cranial nerves two through 12 are intact. Motor and sensation are intact and symmetrical throughout. No tremor. He does move all 4 extremities and has no focal deficits Course Administered Medications Discontinued Medications Multivitamins 10 ml/ Thiamine HCl 100 mg/ Folic Acid 1 mg/Sodium Chloride 1,011.2 mls @ 1,011.2 mls/hr IV .Q1H ONE Stop: 12/24/21 22:05 Last Infusion: 12/24/21 23:41 Dose: 0 mls/hr Documented by: [id number] Admin: 12/24/21 22:11 Dose: 1,011.2 mls/hr Documented by: [id number] Magnesium Sulfate/Dextrose (Magnesium Sulfate / D5w) 1 gm in 100 mls @ 100 mls/ hr IV NOW STA Stop: 12/24/21 23:25 Last Admin: 12/24/21 22:46 Dose: 100 mls/hr Documented by: [id number] Medical Decision Making Differential Diagnosis Alcohol intoxication, alcohol withdrawal, subdural, electrolyte or metabolic abnormality, infection, anemia, cardiac disease, toxicologic Medical Records Attestation: I reviewed the patient's medical records. Home Medications Current Medication List: was personally reviewed by me Laboratory Data Attestation: I reviewed the patient's lab results. Result diagrams: 12/24/21 Unknown 12/24/21 Unknown Lab Results 12/24/21 12/24/21 12/24/21 Range/Units Unknown Unknown Unknown WBC 6.58 (4.8-10.8) K/uL RBC 4.08 L (4.7-6.1) M/uL Hgb 10.9 L (14.0-18.0) g/dL Hct 32.8 L (42-52) % MCV 80.4 (80-100) fL MCH 26.7 (25-34) pg MCHC 33.2 (32-36) g/dL RDW Std Deviation 48.4 H (36.4-46.3) fL RDW Coeff of Luis 16.4 H (11.5-14.5) % Plt Count 444 H (130-400) K/uL MPV 8.0 (7.4-10.4) fL Immature Gran % (Auto) 0.3 % Neut % (Auto) 59.2 % Lymph % (Auto) 29.8 % Petroleum % (Auto) 9.6 % Eos % (Auto) 0.5 % Baso % (Auto) 0.6 % Neut # (Auto) 3.90 (1.4-6.5) K/uL Lymph # (Auto) 1.96 (1.2-3.4) K/uL Petroleum # (Auto) 0.63 H (0.11-0.59) K/uL Eos # (Auto) 0.03 (0-0.5) K/uL Baso # (Auto) 0.04 (0-0.2) K/uL Immature Gran # (Auto) 0.02 (0.00-0.02) K/uL PT 10.5 (9.0-12.0) Seconds INR 1.0 (0.9-1.1) APTT 22.3 (21.0-31.0) Seconds PTT Ratio 0.8 Sodium 128 L (136-145) mmol/L Potassium 3.6 (3.5-5.1) mmol/L Chloride 90 L (98-107) mmol/L Carbon Dioxide 20 L (21-32) mmol/L Anion Gap 18 H (3-11) BUN 5 L (6-23) mg/dl Creatinine 0.75 (0.6-1.4) mg/dl Est Cr Clr Drug Dosing 115.7 ml/min Est GFR ( Amer) 118.0 ml/min Est GFR (Non-Af Amer) 101.8 ml/min BUN/Creatinine Ratio 6.7 L (10-20) Glucose 78 (70-99(Fasting)) mg/dl Calcium 9.0 (8.5-10.1) mg/dl Magnesium 1.6 L (1.7-2.4) mg/dl Total Bilirubin 0.4 (0.2-1.0) mg/dl AST 45 H (13-39) U/L ALT 16 (7-52) U/L Alkaline Phosphatase 63 (34-104) U/L Total Protein 7.7 (6.0-8.3) gm/dl Albumin 4.6 (3.4-5.0) gm/dl Globulin 3.1 (2.5-4.0) gm/dl Albumin/Globulin Ratio 1.5 (0.9-2) TSH (0.300-4.500) uIu/ml Urine Color Urine Appearance (Clear) Urine pH (4.5-7.5) Ur Specific [place] (1.000-1.030) Urine Protein (Negative) Urine Glucose (UA) (Negative) Urine Ketones (Negative) Urine Blood (Negative) Urine Nitrite (Negative) Urine Bilirubin (Negative) Urine Urobilinogen (Negative) Ur Leukocyte Esterase (Negative) Ethyl Alcohol mg/dL (<10.0) mg/dl SARS-CoV-2, RNA, NAAT (NEGATIVE) 12/24/21 12/24/21 12/24/21 Range/Units Unknown Unknown Unknown WBC (4.8-10.8) K/uL RBC (4.7-6.1) M/uL Hgb (14.0-18.0) g/dL Hct (42-52) % MCV (80-100) fL MCH (25-34) pg MCHC (32-36) g/dL RDW Std Deviation (36.4-46.3) fL RDW Coeff of Luis (11.5-14.5) % Plt Count (130-400) K/uL MPV (7.4-10.4) fL Immature Gran % (Auto) % Neut % (Auto) % Lymph % (Auto) % Petroleum % (Auto) % Eos % (Auto) % Baso % (Auto) % Neut # (Auto) (1.4-6.5) K/uL Lymph # (Auto) (1.2-3.4) K/uL Petroleum # (Auto) (0.11-0.59) K/uL Eos # (Auto) (0-0.5) K/uL Baso # (Auto) (0-0.2) K/uL Immature Gran # (Auto) (0.00-0.02) K/uL PT (9.0-12.0) Seconds INR (0.9-1.1) APTT (21.0-31.0) Seconds PTT Ratio Sodium (136-145) mmol/L Potassium (3.5-5.1) mmol/L Chloride (98-107) mmol/L Carbon Dioxide (21-32) mmol/L Anion Gap (3-11) BUN (6-23) mg/dl Creatinine (0.6-1.4) mg/dl Est Cr Clr Drug Dosing ml/min Est GFR ( Amer) ml/min Est GFR (Non-Af Amer) ml/min BUN/Creatinine Ratio (10-20) Glucose (70-99(Fasting)) mg/dl Calcium (8.5-10.1) mg/dl Magnesium (1.7-2.4) mg/dl Total Bilirubin (0.2-1.0) mg/dl AST (13-39) U/L ALT (7-52) U/L Alkaline Phosphatase (34-104) U/L Total Protein (6.0-8.3) gm/dl Albumin (3.4-5.0) gm/dl Globulin (2.5-4.0) gm/dl Albumin/Globulin Ratio (0.9-2) TSH 0.996 (0.300-4.500) uIu/ml Urine Color Yellow Urine Appearance Clear (Clear) Urine pH 6.0 (4.5-7.5) Ur Specific [place] 1.003 (1.000-1.030) Urine Protein Negative (Negative) Urine Glucose (UA) Negative (Negative) Urine Ketones Negative (Negative) Urine Blood Negative (Negative) Urine Nitrite Negative (Negative) Urine Bilirubin Negative (Negative) Urine Urobilinogen Negative (Negative) Ur Leukocyte Esterase Negative (Negative) Ethyl Alcohol mg/dL 253.2 H (<10.0) mg/dl SARS-CoV-2, RNA, NAAT (NEGATIVE) 12/24/21 Range/Units Unknown WBC (4.8-10.8) K/uL RBC (4.7-6.1) M/uL Hgb (14.0-18.0) g/dL Hct (42-52) % MCV (80-100) fL MCH (25-34) pg MCHC (32-36) g/dL RDW Std Deviation (36.4-46.3) fL RDW Coeff of Luis (11.5-14.5) % Plt Count (130-400) K/uL MPV (7.4-10.4) fL Immature Gran % (Auto) % Neut % (Auto) % Lymph % (Auto) % Petroleum % (Auto) % Eos % (Auto) % Baso % (Auto) % Neut # (Auto) (1.4-6.5) K/uL Lymph # (Auto) (1.2-3.4) K/uL Petroleum # (Auto) (0.11-0.59) K/uL Eos # (Auto) (0-0.5) K/uL Baso # (Auto) (0-0.2) K/uL Immature Gran # (Auto) (0.00-0.02) K/uL PT (9.0-12.0) Seconds INR (0.9-1.1) APTT (21.0-31.0) Seconds PTT Ratio Sodium (136-145) mmol/L Potassium (3.5-5.1) mmol/L Chloride (98-107) mmol/L Carbon Dioxide (21-32) mmol/L Anion Gap (3-11) BUN (6-23) mg/dl Creatinine (0.6-1.4) mg/dl Est Cr Clr Drug Dosing ml/min Est GFR ( Amer) ml/min Est GFR (Non-Af Amer) ml/min BUN/Creatinine Ratio (10-20) Glucose (70-99(Fasting)) mg/dl Calcium (8.5-10.1) mg/dl Magnesium (1.7-2.4) mg/dl Total Bilirubin (0.2-1.0) mg/dl AST (13-39) U/L ALT (7-52) U/L Alkaline Phosphatase (34-104) U/L Total Protein (6.0-8.3) gm/dl Albumin (3.4-5.0) gm/dl Globulin (2.5-4.0) gm/dl Albumin/Globulin Ratio (0.9-2) TSH (0.300-4.500) uIu/ml Urine Color Urine Appearance (Clear) Urine pH (4.5-7.5) Ur Specific [place] (1.000-1.030) Urine Protein (Negative) Urine Glucose (UA) (Negative) Urine Ketones (Negative) Urine Blood (Negative) Urine Nitrite (Negative) Urine Bilirubin (Negative) Urine Urobilinogen (Negative) Ur Leukocyte Esterase (Negative) Ethyl Alcohol mg/dL (<10.0) mg/dl SARS-CoV-2, RNA, NAAT NEGATIVE (NEGATIVE) Imaging Data Attestation: I personally reviewed and interpreted this imaging study as follows: My Impression: Chest x-rayno acute infiltrate, failure, pneumothorax seen Head CTno acute hemorrhage or mass-effect seen upon my interpretation ECG Data Attestation: I personally reviewed and interpreted this ECG as follows: Indication: + weakness Rate (beats per minute): 88 Rhythm: + normal sinus ECG Intervals/blocks: + Normal QRS, + Normal QT and + Normal SC ECG Jenkins: + Normal ECG ST segments: + Normal ST segments ECG Findings: + Poor R wave progression Comparison ECG Date: from (12/04/20) Change: no significant change MDM Narrative This patient comes in after being weak. He reviewed his chart he has been here for this before he does have a history of being chronically hyponatremic as well as having chronic alcohol abuse. His initial vital signs are stable he does not appear to be shaky. IV access established and he was given a IV banana bag given his alcohol abuse history CAT scan of his head was obtained as well as EKG and multiple blood testing. He was reassessed frequently. He does have hyponatremia which is chronic but slightly worse at 128. His magnesium also low and he was given IV magnesium. CAT scan of his head was unremarkable . his EKG does not suggest cardiac event nor does his symptoms. His blood alcohol is elevated in the 200s. He does not appear to be withdrawing. I talked to him at length he says he is too weak and cannot go home I did consult Dr. Dalton to see him in the ER for admission and further evaluation. Continuous cardiac monitoring: Orders placed in EMR for continuous cardiac monitoring. Upon my interpretation, the patient was to be in normal sinus rhythm with a rate of 90 Impression & Plan Weakness, Hypomagnesemia, Alcohol use disorder, Hyponatremia, Alcohol into xication Discharge Plan Visit Data Chief Complaint: Alcohol Intoxication Stated Complaint: walking difficulty ED Provider: Patrick Henry Discharge Problem: Weakness, Hypomagnesemia, Alcohol use disorder, Hyponatremia, Alcohol intoxication Forms Stand Alone Forms: My [facility] Prescriptions Prescriptions: No Action cholecalciferol (vitamin D3) [Vitamin D3] 25 mcg (1,000 unit) tablet 1,000 unit PO DAILY RF: 0 hydroxyzine HCl 25 mg tablet 25 mg PO BID PRN (Reason: Itching) RF: 0 amlodipine [Norvasc] 5 mg Tablet 5 mg PO QAM Qty: 30 RF: 0 acetaminophen 325 mg Tablet 650 mg PO Q8H PRN (Reason: fever or pain) Qty: 60 RF: 0 magnesium oxide 400 mg (241.3 mg magnesium) Tablet 400 mg PO BID Qty: 60 RF: 0 Excedrin Extra Strength 250-250-65 mg Tablet 1 tab PO BID PRN (Reason: Pain) RF: 0 potassium chloride 20 mEq Tablet,Er Particles/Crystals 20 meq PO QAM Qty: 20 RF: 0 folic acid 1 mg Tablet 1 mg PO QAM Qty: 30 RF: 0 multivitamin with folic acid [Daily-Ifeanyi (with folic acid)] 400 mcg Tablet 1 tab PO QAM Qty: 30 RF: 0 thiamine HCl (vitamin B1) 100 mg Tablet 100 mg PO QAM Qty: 30 RF: 0 Referrals Referrals: Denis Burleson DO [Primary Care Provider] -
[2021-12-24 21:29] LABS: Basophils # (auto) 0.04 K/uL (0-0.2); Basophils % (auto) 0.6 %; Eosinophils # (auto) 0.03 K/uL (0-0.5); Eosinophils % (auto) 0.5 %; Hematocrit (blood only) 32.8 % (42-52); Hemoglobin 10.9 g/dL (14.0-18.0); Immature Granulocytes # (auto) 0.02 K/uL (0.00-0.02); Immature Granulocytes % (auto) 0.3 %; Lymphocytes # (auto) 1.96 K/uL (1.2-3.4); Lymphocytes % (auto) 29.8 %; Mean Corpuscular Hemoglobin 26.7 pg (25-34); Mean Corpuscular Hgb Conc 33.2 g/dL (32-36); Mean Corpuscular Volume 80.4 fL (80-100); Monocytes # (auto) 0.63 K/uL (0.11-0.59); Monocytes % (auto) 9.6 %; Neutrophils % (auto) 59.2 %; Platelet Count 444 K/uL (130-400); RDW Coefficient of Variation 16.4 % (11.5-14.5); RDW Standard Deviation 48.4 fL (36.4-46.3); Red Blood Count 4.08 M/uL (4.7-6.1); White Blood Count 6.58 K/uL (4.8-10.8)
[2021-12-24 21:48] LABS: Partial Thromboplastin Ratio 0.8; Partial Thromboplastin Time 22.3 Seconds (21.0-31.0); Prothrombin Time 10.5 Seconds (9.0-12.0)
[2021-12-24 21:54] LABS: Appearance Urine Clear (Clear); Bilirubin Urine Negative (Negative); Blood Urine Negative (Negative); Color Urine Yellow; Glucose Urine UA Negative (Negative); Ketones Urine Negative (Negative); Leukocyte Esterase Urine Negative (Negative); Nitrite Urine Negative (Negative); Protein Urine Negative (Negative); Specific Gravity Urine 1.003 (1.000-1.030); Urobilinogen Urine Negative (Negative)
[2021-12-24 22:04] LABS: Albumin Globulin Ratio 1.5 (0.9-2); Albumin Level 4.6 gm/dl (3.4-5.0); BUN Creatinine Ratio 6.7 (10-20); Bilirubin,Total 0.4 mg/dl (0.2-1.0); Creatinine Clr Calc Pharmacy 115.7 ml/min; Est GFR (Non-African American) 101.8 ml/min; Globulin 3.1 gm/dl (2.5-4.0); Magnesium 1.6 mg/dl (1.7-2.4); Potassium 3.6 mmol/L (3.5-5.1); Total Protein 7.7 gm/dl (6.0-8.3)
[2021-12-24] MEDS ORDERED: MAGNESIUM SULFATE / D5W 1 GM/100 ML BAG IV STA (22:26)
[2021-12-25] MEDS ORDERED: ATIVAN IV ALCOHOL WITHDRAWL IV PRN (01:04)
[2021-12-25] MEDS ORDERED: POLYETHYLENE (MIRALAX) 17 GM PACK PO PRN (01:04)
[2021-12-25] MEDS ORDERED: GABAPENTIN 1200MG ALCOHOL WITHDRAWAL LOAD PO STA (01:04)
[2021-12-25] MEDS ORDERED: LORazepam 2 MG/1 ML VIAL IV PRN ×2 (01:04)
[2021-12-25] MEDS ORDERED: NITROGLYCERIN SL 0.4 MG/TAB TAB SL PRN (01:04)
[2021-12-25] MEDS ORDERED: GABAPENTIN 600 MG TAB PO ONE (01:04)
[2021-12-25] MEDS ORDERED: LORazepam 2 MG/1 ML VIAL IV STA (01:23)
--- NOTE | 2021-12-25 03:45 | History and Physical Report ---
DATE OF ADMISSION: 12/24/2021. CHIEF COMPLAINT: Alcoholism, ambulatory dysfunction. 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 The patient was recently in the hospital for fall and alcoholism. At that time, SNF did not accept him because he did not meet criteria. Discharged back home. The patient says sometimes he is drinking 12 pack beers, today he drank 3 beers and he thinks he is in withdrawal, he is not feeling good. He is not able to ambulate and is feeling weak and tired, so he came to the hospital. He is hard of hearing. When asked about if he has any chest pain, he is answering may be coming on. When asked about shortness of breath, he says it may come. May be nauseous. No vomiting, no headache, no blurred visions, no earache, no sore throat, no cough, no fevers, no abdominal pain. He says he is micturating a lot. Normal bladder and bowel movements. His hemodynamics are stable. ALLERGIES: HYDRALAZINE, PENICILLIN. PAST MEDICAL HISTORY: As mentioned above. PAST SURGICAL HISTORY: EGDs, hip surgery. MEDICATIONS: Last admit , he was discharged on amlodipine 5 mg p.o. daily, vitamin D 1000 units p.o. daily, Excedrin Extra Strength one tablet p.o. b.i.d. p.r.n., folic acid 1 mg p.o. daily, hydroxyzine 25 mg p.o. b.i.d. p.r.n., multivitamins with folic acid one tablet p.o. daily, potassium chloride 20 mEq p.o. a.m., thiamine 100 mg p.o. a.m., magnesium 400 mg p.o. b.i.d. FAMILY HISTORY: Significant for no family history on file. SOCIAL HISTORY: Seems to be drinking as per the records 6 to 7 beers a day. No known drug use. REVIEW OF SYSTEMS: As per HPI. Rest of the review of systems is negative. PHYSICAL EXAMINATION: GENERAL: The patient is of moderate build, hard of hearing, not in acute distress. VITAL SIGNS: Temperature 36.5, pulse 86, respiratory rate 15, blood pressure 148/88, oxygen 92% on room air. HEENT: Pupils equal, round and reactive to light. Oral mucosa moist. NECK: No JVD, no neck masses. CARDIOVASCULAR: S1 and S2 heard. Regular rate and rhythm. No murmur, no gallop. RESPIRATORY SYSTEM: Normal AP diameter. No accessory muscle use. No wheezing, no crackles. ABDOMEN: Soft. Bowel sounds are present, nontender, no distention. CENTRAL NERVOUS SYSTEM: Cranial nerves II through XII are grossly intact, nonfocal. EXTREMITIES: Mild pedal edema present. No obvious erythema seen. LABORATORY DATA: WBC 6.5, hemoglobin 10.9, hematocrit 32.8, platelets 444. PT 10.5, INR 1, APTT 22.3. Sodium 128, potassium 3.6, chloride 90, bicarbonate 20, BUN 5, creatinine 0.7, serum glucose 78, calcium 9, magnesium 1.6, total bilirubin 0.4, AST 45, ALT 16, alkaline phosphatase 63. TSH 0.9. Urinalysis negative. Ethyl alcohol 253. SARS-CoV-2 rapid test negative. IMAGING DATA: CT head, no acute findings. Chest x-ray, no acute findings. EKG: Normal sinus rhythm at a rate of 88, no acute ST changes seen. ASSESSMENT AND PLAN: This is a 56-year-old male with history of alcoholism, history of hyponatremia, recurrent admissions for alcoholism, some ambulatory dysfunction, who presents with alcoholism and ambulatory dysfunction. 1. Alcoholism: Alcohol is 253. Will place him on gabapentin and alcohol withdrawal protocol with IV Ativan p.r.n. Received banana bag in the ER. Will place him on IV thiamine and folic acid. Monitor closely for withdrawals. 2. Frequent falls, secondary to above: PT, OT when stable. 3. History of hyponatremia: Currently sodium is 128. He used to be on salt tablets in the past. Placed on fluid restrictions 1800 mL per day. Will follow the repeat labs in the a.m., possibly most likely secondary to beer potomania. 4. History of hypomagnesemia: Received IV magnesium in the ER. Last admission, he was discharged on magnesium supplements and potassium supplements , which will be continued. To be determined whether to be continued on discharge. 5. Hypertension: On amlodipine, which will be continued. Monitor the blood pressure. If it goes high with withdrawal, may place on clonidine p.r.n. 6. Esophageal stenosis: Needs to be on chopped soft diet. 7. Chronic anemia: Hemoglobin 10.9, will follow the labs. 8. Chest discomfort? will follow tropobnin levels 9. History of tobacco abuse. 10. Deep venous thrombosis prophylaxis: Sequential compression devices for now and heparin 5000 units subq t.i.d. DISPOSITION: Admit to med tele. PT/OT. Social service to help with discharge planning. Level 1 full code. Job ID: [id number] [facility]
[2021-12-25] MEDS: HEPARIN SOD 5,000 UNIT/0.5 ML VIAL SQ SCH ×2 (06:20→08:26)
[2021-12-25 07:38] LABS: Albumin Level 4.4 gm/dl (3.4-5.0); BUN Creatinine Ratio 4.8 (10-20); Bilirubin Direct 0.1 mg/dl (0-0.2); Bilirubin,Total 0.4 mg/dl (0.2-1.0); Calcium 8.4 mg/dl (8.5-10.1); Est GFR (African American) 126.8 ml/min; Est GFR (Non-African American) 109.4 ml/min; Potassium 3.2 mmol/L (3.5-5.1); Total Protein 7.4 gm/dl (6.0-8.3)
[2021-12-25 07:39] LABS: Folate (Folic Acid) > 22.30 ng/ml (>5.38)
[2021-12-25 07:40] LABS: Vitamin B12 279 pg/ml (180-914)
[2021-12-25] MEDS ORDERED: cloNIDine HCL 0.1 MG TAB PO PRN (07:46)
[2021-12-25] MEDS: CHOLECALCIFEROL 1,000 UNITS 25 MCG TAB PO SCH (08:19)
[2021-12-25] MEDS: MAGNESIUM OXIDE 400 MG TAB PO SCH ×2 (08:19→20:20)
[2021-12-25] MEDS: MULTIVITAMIN TAB PO SCH (08:19)
[2021-12-25] MEDS: amLODIPine BESYLATE 5 MG TAB PO SCH (08:19)
[2021-12-25] MEDS: GABAPENTIN 600 MG TAB PO SCH ×3 (08:20→21:15)
--- NOTE | 2021-12-25 08:34 | XRay Report ---
XR chest 1V portable CLINICAL HISTORY: weakness. Evaluate cardiopulmonary status COMPARISON STUDY: 11/10/2021 TECHNIQUE: 1 view of the chest FINDINGS: Single frontal view of the chest demonstrates the cardiomediastinal silhouette to be within normal li mits. There is hyperinflation of the lungs with attenuation of the pulmonary vasculature peripherally characteristic of underlying chronic obstructive pulmonary disease. Minimal linear scarring is seen in the left lung base. The lungs are otherwise clear of alveolar opacities. There is no evidence for pleural effusion. There is no evidence for vascular congestion. There is no acute osseous pathology. IMPRESSION: 1. Compared to previous examination, there is again evidence for underlying COPD with no acute chest disease. ACT 112: Negative or not required by law. Electronically signed by: David Rojas M.D. 12/25/2021 8:33 AM
--- NOTE | 2021-12-25 08:35 | CT Scan Report ---
CT head/brain wo con CLINICAL HISTORY: weakness Technique: Contiguous axial CT images of the head were acquired from the base of the skull to the anshul shireen without intravenous contrast administration. Images were viewed in brain, subdural and [facility]. Automated dose lowering techniques and/or adjustment according to patient size were utilized for this exam. Comparison: Comparison is made to CT head 11/10/2021 Findings: Areas of decreased attenuation are present in the periventricular and subcortical white matter bilate rally consistent with small vessel ischemic disease. Generalized cerebral atrophy with commensurate e nlargement of the ventricles, sulci, and cisterns is also present. There is no acute intracranial hem orrhage or evidence of acute territorial infarction. No shift of the midline structures, mass effect, or extra-axial abnormalities are shown. Atherosclerotic calcifications are present in the intracran ial segments of the internal carotid arteries. Imaged portions of the paranasal sinuses and mastoid air cells are clear. The orbits appear normal. There are no acute fractures of the calvaria or scalp swelling. Impression: No acute intracranial hemorrhage, no evidence of acute territorial infarction or other acute intracra nial disease process. ACT 112: Negative or not required by law. Electronically signed by: Louie Chavarria M.D. 12/25/2021 8:34 AM
[2021-12-25] MEDS: FOLIC ACID 1 MG TAB PO SCH (08:52)
[2021-12-25] MEDS: hydrOXYzine HCl 25 MG TAB PO PRN (08:53)
[2021-12-25] MEDS: POTASSIUM CHLORIDE CRTAB 20 MEQ TABCR PO SCH (08:53)
[2021-12-25] MEDS: LORazepam 2 MG/1 ML VIAL IV PRN (08:54)
[2021-12-25] MEDS: THIAMINE HCL 100 MG TAB PO SCH (08:55)
[2021-12-25] MEDS ORDERED: diphenhydrAMINE 50 MG/ML VIAL IV STA (08:56)
[2021-12-25] MEDS ORDERED: POTASSIUM CHLORIDE CRTAB 20 MEQ TABCR PO SCH (09:00)
[2021-12-25] MEDS ORDERED: FOLIC ACID 1 MG in SYRINGE 9.8 ML IV SCH (09:00)
[2021-12-25] MEDS ORDERED: THIAMINE HCL 100 MG in SYRINGE 9 ML IV SCH (09:00)
--- NOTE | 2021-12-25 10:51 | Electrocardiogram Report ---
Test Reason : Blood Pressure : / mmHG Vent. Rate : 088 BPM Atrial Rate : 088 BPM P-R Int : 152 ms QRS Dur : 092 ms QT Int : 398 ms P-R-T Axes : 058 007 069 degrees QTc Int : 481 ms Poor data quality, interpretation may be adversely affected Normal sinus rhythm Confirmed by Rajesh Stallworth ([id number]) on 12/25/2021 10:51:12 AM Referred By: REFERRED SELF Confirmed By:Sridhar Stallworth
[2021-12-25 11:22] LABS: Calcium 8.6 mg/dl (8.5-10.1); Creatinine Clr Calc Pharmacy 121.3 ml/min; Est GFR (African American) 123.6 ml/min; Est GFR (Non-African American) 106.7 ml/min; Potassium 3.5 mmol/L (3.5-5.1)
--- NOTE | 2021-12-25 13:15 | Hospitalist Progress Note ---
Date of Service December 25, 2021 Assessment & Plan (1) Alcohol intoxication: (2) Hyponatremia: Plan: This is a 56-year-old male with history of alcoholism, history of hyponatremia, recurrent admissions for alcoholism, some ambulatory dysfunction, who presents with alcoholism and ambulatory dysfunction. 1. Alcoholism: Alcohol is 253. Continue AWSS protocol, on gabapentin taper with IV Ativan p.r.n.On thiamine, folate, multivitamins. Monitor closely for withdrawals. 2. Frequent falls, secondary to above: PT, OT when stable. patient had recent extensive work up recently and was seen by neuro and Dr Lucio. recommended OP EMG. 3. Hyponatremia: likely beer potomania- resolved. 4. Hypomagnesemia: Received IV magnesium in the ER.On Mag supplementation. Recheck in am. 5. Hypertension: On amlodipine. Monitor the blood pressure. If it goes high with withdrawal, may place on clonidine p.r.n. 6. Esophageal stenosis: Needs to be on chopped soft diet. 7. Chronic anemia: Hemoglobin 10.9, stable 8. Chest discomfort- resolved. follow trop levels 9. History of tobacco abuse. 10. Hives- mild, given benadryl. monitor. No angioedema or anaphylaxis. DVT prophylaxis: sq lovenox Dispo- On AWSS protocol. Needs PT eval and may be SNF. . Admission and Anticipated Discharge Date Admission Date: December 24, 2021 Subjective He states he could not stop drinking once he was discharged and is back now- states it is hard to stop drinking. Complains of itchiness this morning. No N/V, fever or chills. No shortness of breath. Physical Exam Physical Exam: General: Sitting comfortably in bed, not in distress, on room air HEENT: EOMI, JORGE A, MMM. no nystagmus Chest: Clear breath sounds bilaterally, no wheezes or crackles CVS: Regular rate and rhythm, normal heart sounds, no murmur Abdomen: Soft, non tender, not distended, normal bowel sounds Neuro: Awake, alert, oriented, conversing well, non focal Extremities: Tremors + Skin: Hives in upper chest> upper abdomen, not in extremities, palms or soles or face. Results & Data Results & Data ([facility]) Vital Signs (Past 12 Hours) Vital Signs Temp Pulse Pulse Pulse Resp BP Pulse Ox 12/25/21 07:54 81 12/25/21 07:00 36.7 C 102 H 20 163/93 H 95 12/25/21 03:49 36.8 C 103 H 20 122/86 93 12/25/21 03:48 100 H 12/25/21 03:37 36.9 C 93 H 18 124/72 95 Laboratory Results Short CBC 12/24/21 Range/Units Unknown WBC 6.58 (4.8-10.8) K/uL Hgb 10.9 L (14.0-18.0) g/dL Hct 32.8 L (42-52) % Plt Count 444 H (130-400) K/uL BMP 12/24/21 12/25/21 12/25/21 Unknown 06:04 10:55 Sodium 128 L 138 D 137 Potassium 3.6 3.2 L 3.5 Chloride 90 L 98 99 Carbon Dioxide 20 L 26 27 BUN 5 L 3 L 4 L Creatinine 0.75 0.63 0.67 Glucose 78 80 84 Calcium 9.0 8.4 L 8.6 Liver Function 12/24/21 12/25/21 Range/Units Unknown 06:04 Total Bilirubin 0.4 0.4 (0.2-1.0) mg/dl Direct Bilirubin 0.1 (0-0.2) mg/dl AST 45 H 42 H (13-39) U/L ALT 16 15 (7-52) U/L Alkaline Phosphatase 63 62 (34-104) U/L Albumin 4.6 4.4 (3.4-5.0) gm/dl Urine 12/24/21 Range/Units Unknown Urine Color Yellow Urine Appearance Clear (Clear) Urine pH 6.0 (4.5-7.5) Ur Specific [place] 1.003 (1.000-1.030) Urine Protein Negative (Negative) Urine Glucose (UA) Negative (Negative) Medications Administered Current Inpatient Medications Acetaminophen (Acetaminophen 325 Mg Tab) 650 mg PO Q4H PRN PRN Reason: Pain or Fever Stop: 01/24/22 01:03 Amlodipine Besylate (Amlodipine Besylate 5 Mg Tab) [facility] [place]: 01/24/22 08:59 Last Admin: 12/25/21 08:19 Dose: 5 mg Documented by: Clonidine HCl (Clonidine Hcl 0.1 Mg Tab) 0.1 mg PO Q4H PRN PRN Reason: Hypertension Stop: 01/24/22 07:45 Enoxaparin Sodium (Enoxaparin Inj 40 Mg/0.4 Ml Syr) 40 mg SQ HS [facility] Stop: 01/24/22 20:59 Folic Acid (Folic Acid 1 Mg Tab) 1 mg PO QAM [facility] Stop: 01/24/22 08:59 Last Admin: 12/25/21 08:52 Dose: Not Given Documented by: Gabapentin (Gabapentin 600 Mg Tab) 600 mg PO Q6H [facility] Stop: 12/25/21 14:01 Last Admin: 12/25/21 08:20 Dose: 600 mg Documented by: Gabapentin (Gabapentin 600 Mg Tab) 600 mg PO Q8H [facility] Stop: 12/26/21 14:01 Gabapentin (Gabapentin 600 Mg Tab) 600 mg PO Q12H [facility] Stop: 12/27/21 12:01 Gabapentin (Gabapentin 600 Mg Tab) 600 mg PO Q24H [facility] Stop: 12/28/21 12:01 Hydroxyzine HCl (Hydroxyzine Hcl 25 Mg Tab) 25 mg PO BID PRN PRN Reason: Itching Stop: 01/24/22 01:03 Last Admin: 12/25/21 08:53 Dose: 25 mg Documented by: Lorazepam (Lorazepam 2 Mg/1 Ml Vial) 1 mg IV UD PRN; Protocol PRN Reason: EtOH Withdrawl AWSS Score 6,7 Stop: 01/24/22 01:03 Last Admin: 12/25/21 08:54 Dose: 1 mg Documented by: Lorazepam (Lorazepam 2 Mg/1 Ml Vial) 2 mg IV UD PRN; Protocol PRN Reason: EtOH Withdrawl AWSS Score 8,9 Stop: 01/24/22 01:03 Lorazepam (Lorazepam 2 Mg/1 Ml Vial) 3 mg IV ONCE PRN; Protocol PRN Reason: EtOH Withdrawl AWSS Score >=10 Stop: 01/24/22 01:03 Magnesium Oxide (Magnesium Oxide 400 Mg Tab) 400 mg PO BID [facility] Stop: 01/24/22 08:59 Last Admin: 12/25/21 08:19 Dose: 400 mg Documented by: Multivitamins (Multivitamin Tab) 1 tab PO QAM [facility] Stop: 01/24/22 08:59 Last Admin: 12/25/21 08:19 Dose: 1 tab Documented by: Nitroglycerin (Nitroglycerin Sl 0.4 Mg/Tab Tab) 0.4 mg SL UD PRN PRN Reason: Chest Pain Stop: 01/24/22 01:03 Ondansetron HCl (Ondansetron Inj 2 Mg/Ml 2 Ml Vial) 4 mg IV Q6H PRN PRN Reason: Nausea Stop: 01/24/22 01:03 Polyethylene Glycol (Polyethylene (Miralax) 17 Gm Pack) 17 gm PO DAILY PRN PRN Reason: Constipation Stop: 01/24/22 01:03 Potassium Chloride (Potassium Chloride Crtab 20 Meq Tabcr) 40 meq PO DAILY [facility] Stop: 12/27/21 08:59 Last Admin: 12/25/21 08:53 Dose: 40 meq Documented by: Thiamine HCl (Thiamine Hcl 100 Mg Tab) 100 mg PO QAM [facility] Stop: 01/24/22 08:59 Last Admin: 12/25/21 08:55 Dose: Not Given Documented by: Vitamin D (Cholecalciferol 1,000 Units 25 Mcg Tab) 1,000 units PO DAILY [facility] Stop: 01/24/22 08:59 Last Admin: 12/25/21 08:19 Dose: 1,000 units Documented by: (1) Alcohol intoxication Complication of substance-induced condition: uncomplicated Qualified Code(s): F10.920 - Alcohol use, unspecified with intoxication, uncomplicated
[2021-12-25 19:00] LABS: BUN Creatinine Ratio 6.5 (10-20); Calcium 9.1 mg/dl (8.5-10.1); Creatinine Clr Calc Pharmacy 105.5 ml/min; Est GFR (African American) 116.8 ml/min; Est GFR (Non-African American) 100.7 ml/min
[2021-12-25] MEDS: ENOXAPARIN INJ 40 MG/0.4 ML SYR SQ SCH (20:20)
[2021-12-26] MEDS: GABAPENTIN 600 MG TAB PO SCH ×3 (06:03→23:48)
[2021-12-26] MEDS: amLODIPine BESYLATE 5 MG TAB PO SCH (07:56)
[2021-12-26] MEDS: MULTIVITAMIN TAB PO SCH (07:56)
[2021-12-26] MEDS: MAGNESIUM OXIDE 400 MG TAB PO SCH ×2 (07:56→20:09)
[2021-12-26] MEDS: FOLIC ACID 1 MG TAB PO SCH (07:56)
[2021-12-26] MEDS: POTASSIUM CHLORIDE CRTAB 20 MEQ TABCR PO SCH (07:57)
[2021-12-26] MEDS: CHOLECALCIFEROL 1,000 UNITS 25 MCG TAB PO SCH (07:57)
[2021-12-26] MEDS: THIAMINE HCL 100 MG TAB PO SCH (07:57)
[2021-12-26] MEDS: ACETAMINOPHEN 325 MG TAB PO PRN ×2 (08:58→20:13)
[2021-12-26 09:01] LABS: BUN Creatinine Ratio 9.9 (10-20); Calcium 9.2 mg/dl (8.5-10.1); Creatinine Clr Calc Pharmacy 114.8 ml/min; Est GFR (African American) 120.7 ml/min; Est GFR (Non-African American) 104.2 ml/min; Potassium 3.6 mmol/L (3.5-5.1)
--- NOTE | 2021-12-26 12:18 | Electrocardiogram Report ---
Test Reason : Blood Pressure : / mmHG Vent. Rate : 092 BPM Atrial Rate : 092 BPM P-R Int : 172 ms QRS Dur : 086 ms QT Int : 390 ms P-R-T Axes : 055 004 067 degrees QTc Int : 482 ms Normal sinus rhythm Nonspecific ST abnormality Abnormal ECG When compared with ECG of 25-DEC-2021 05:59, (unconfirmed) Nonspecific T wave abnormality, worse in Lateral leads Confirmed by Rajesh Stallworth ([id number]) on 12/26/2021 12:18:06 PM Referred By: REFERRED SELF Confirmed By:Sridhar Stallworth
--- NOTE | 2021-12-26 12:28 | Electrocardiogram Report ---
Test Reason : Blood Pressure : / mmHG Vent. Rate : 072 BPM Atrial Rate : 072 BPM P-R Int : 180 ms QRS Dur : 088 ms QT Int : 442 ms P-R-T Axes : 070 -09 058 degrees QTc Int : 483 ms Normal sinus rhythm Minimal voltage criteria for LVH, may be normal variant Abnormal ECG When compared with ECG of 25-DEC-2021 10:10, (unconfirmed) Nonspecific T wave abnormality, improved in Lateral leads Confirmed by Rajesh Stallworth ([id number]) on 12/26/2021 12:27:53 PM Referred By: REFERRED SELF Confirmed By:Sridhar Stallworth
--- NOTE | 2021-12-26 12:33 | Electrocardiogram Report ---
Test Reason : Blood Pressure : / mmHG Vent. Rate : 080 BPM Atrial Rate : 080 BPM P-R Int : 184 ms QRS Dur : 086 ms QT Int : 400 ms P-R-T Axes : 077 049 087 degrees QTc Int : 461 ms Normal sinus rhythm Normal ECG Confirmed by Rajesh Stallworth ([id number]) on 12/26/2021 12:33:06 PM Referred By: REFERRED SELF Confirmed By:Sridhar Stallworth
--- NOTE | 2021-12-26 12:56 | Hospitalist Progress Note ---
Date of Service December 26, 2021 Assessment & Plan (1) Alcohol intoxication: (2) Hyponatremia: Plan: This is a 56-year-old male with history of alcoholism, history of hyponatremia, recurrent admissions for alcoholism, some ambulatory dysfunction, who presents with alcoholism and ambulatory dysfunction. 1. Alcoholism: Alcohol level on admision was 253. Continue AWSS protocol, on gabapentin taper with IV Ativan p.r.n.On thiamine, folate, multivitamins. Monitor closely for withdrawals. 2. Frequent falls, secondary to above: PT/OT eval. patient had recent extensive work up recently and was seen by neuro and Dr Lucio. Recommended OP EMG. 3. Hyponatremia: likely beer potomania- resolved. Will remove fluid restriction and monitor. 4. Hypomagnesemia: resolved, on supplementation 5. Hypertension: On amlodipine- relatively stable 6. Esophageal stenosis: Needs to be on chopped soft diet. 7. Chronic anemia: Hemoglobin 10.9, stable 8. Chest discomfort- resolved. trop trend negative 9. History of tobacco abuse. 10. Hives- resolved DVT prophylaxis: sq lovenox Dispo- On AWSS protocol. Needs PT/OT eval and may be SNF. Admission and Anticipated Discharge Date Admission Date: December 24, 2021 Subjective Feels fine. Asking fluid restriction to be removed. States he has not been walking. Rash and itching resolved. No N/V/chest pain, shortness of breath. Physical Exam Physical Exam: General: Sitting comfortably in bed, not in distress, on room air HEENT: EOMI, JORGE A, MMM. no nystagmus Chest: Clear breath sounds bilaterally, no wheezes or crackles CVS: Regular rate and rhythm, normal heart sounds, no murmur Abdomen: Soft, non tender, not distended, normal bowel sounds Neuro: Awake, alert, oriented, conversing well, non focal Extremities: mild tremors significantly improved. Skin: No rash. Hives resolved. Results & Data Results & Data ([facility]) Vital Signs (Past 12 Hours) Vital Signs Temp Pulse Pulse Resp BP Pulse Ox 12/26/21 11:32 36.9 C 76 16 146/91 H 94 12/26/21 07:32 83 12/26/21 06:10 36.6 C 74 18 156/94 H 94 12/26/21 03:45 37 C 94 H 18 138/74 94 12/26/21 01:22 96 H Laboratory Results BMP 12/25/21 12/25/21 12/26/21 18:01 19:41 08:13 Sodium 134 L 135 L Potassium Cancelled 3.6 Chloride 99 101 Carbon Dioxide 23 25 BUN 5 L 7 Creatinine 0.77 0.71 Glucose 86 124 H Calcium 9.1 9.2 Medications Administered Current Inpatient Medications Acetaminophen (Acetaminophen 325 Mg Tab) 650 mg PO Q4H PRN PRN Reason: Pain or Fever Stop: 01/24/22 01:03 Last Admin: 12/26/21 08:58 Dose: 650 mg Documented by: Amlodipine Besylate (Amlodipine Besylate 5 Mg Tab) 5 mg PO QAM [facility] Stop: 01/24/22 08:59 Last Admin: 12/26/21 07:56 Dose: 5 mg Documented by: Clonidine HCl (Clonidine Hcl 0.1 Mg Tab) 0.1 mg PO Q4H PRN PRN Reason: Hypertension Stop: 01/24/22 07:45 Last Admin: 12/25/21 14:23 Dose: 0.1 mg Documented by: Enoxaparin Sodium (Enoxaparin Inj 40 Mg/0.4 Ml Syr) 40 mg SQ HS [facility] Stop: 01/24/22 20:59 Last Admin: 12/25/21 20:20 Dose: 40 mg Documented by: Folic Acid (Folic Acid 1 Mg Tab) 1 mg PO QAM [facility] Stop: 01/24/22 08:59 Last Admin: 12/26/21 07:56 Dose: 1 mg Documented by: Gabapentin (Gabapentin 600 Mg Tab) 600 mg PO Q8H [facility] Stop: 12/26/21 14:01 Last Admin: 12/26/21 06:03 Dose: 600 mg Documented by: Gabapentin (Gabapentin 600 Mg Tab) 600 mg PO Q12H [facility] Stop: 12/27/21 12:01 Gabapentin (Gabapentin 600 Mg Tab) 600 mg PO Q24H [facility] Stop: 12/28/21 12:01 Hydroxyzine HCl (Hydroxyzine Hcl 25 Mg Tab) 25 mg PO BID PRN PRN Reason: Itching Stop: 01/24/22 01:03 Last Admin: 12/25/21 08:53 Dose: 25 mg Documented by: Lorazepam (Lorazepam 2 Mg/1 Ml Vial) 1 mg IV UD PRN; Protocol PRN Reason: EtOH Withdrawl AWSS Score 6,7 Stop: 01/24/22 01:03 Last Admin: 12/25/21 08:54 Dose: 1 mg Documented by: Lorazepam (Lorazepam 2 Mg/1 Ml Vial) 2 mg IV UD PRN; Protocol PRN Reason: EtOH Withdrawl AWSS Score 8,9 Stop: 01/24/22 01:03 Lorazepam (Lorazepam 2 Mg/1 Ml Vial) 3 mg IV ONCE PRN; Protocol PRN Reason: EtOH Withdrawl AWSS Score >=10 Stop: 01/24/22 01:03 Magnesium Oxide (Magnesium Oxide 400 Mg Tab) 400 mg PO BID [facility] Stop: 01/24/22 08:59 Last Admin: 12/26/21 07:56 Dose: 400 mg Documented by: Multivitamins (Multivitamin Tab) 1 tab PO QAM [facility] Stop: 01/24/22 08:59 Last Admin: 12/26/21 07:56 Dose: 1 tab Documented by: Nitroglycerin (Nitroglycerin Sl 0.4 Mg/Tab Tab) 0.4 mg SL UD PRN PRN Reason: Chest Pain Stop: 01/24/22 01:03 Ondansetron HCl (Ondansetron Inj 2 Mg/Ml 2 Ml Vial) 4 mg IV Q6H PRN PRN Reason: Nausea Stop: 01/24/22 01:03 Polyethylene Glycol (Polyethylene (Miralax) 17 Gm Pack) 17 gm PO DAILY PRN PRN Reason: Constipation Stop: 01/24/22 01:03 Potassium Chloride (Potassium Chloride Crtab 20 Meq Tabcr) 40 meq PO DAILY [facility] Stop: 12/27/21 08:59 Last Admin: 12/26/21 07:57 Dose: 40 meq Documented by: Thiamine HCl (Thiamine Hcl 100 Mg Tab) 100 mg PO QAM [facility] Stop: 01/24/22 08:59 Last Admin: 12/26/21 07:57 Dose: 100 mg Documented by: Vitamin D (Cholecalciferol 1,000 Units 25 Mcg Tab) 1,000 units PO DAILY [facility] Stop: 01/24/22 08:59 Last Admin: 12/26/21 07:57 Dose: 1,000 units Documented by: (1) Alcohol intoxication Complication of substance-induced condition: uncomplicated Qualified Code(s): F10.920 - Alcohol use, unspecified with intoxication, uncomplicated
[2021-12-26] MEDS: ENOXAPARIN INJ 40 MG/0.4 ML SYR SQ SCH (20:09)
[2021-12-27 08:42] LABS: BUN Creatinine Ratio 8.2 (10-20); Calcium 8.9 mg/dl (8.5-10.1); Creatinine Clr Calc Pharmacy 133.8 ml/min; Est GFR (African American) 128.5 ml/min; Est GFR (Non-African American) 110.9 ml/min; Magnesium 1.9 mg/dl (1.7-2.4); Potassium 4.2 mmol/L (3.5-5.1)
[2021-12-27] MEDS: ACETAMINOPHEN 325 MG TAB PO PRN ×2 (10:45→22:05)
[2021-12-27] MEDS: MULTIVITAMIN TAB PO SCH (10:46)
[2021-12-27] MEDS: THIAMINE HCL 100 MG TAB PO SCH (10:46)
[2021-12-27] MEDS: amLODIPine BESYLATE 5 MG TAB PO SCH (10:46)
[2021-12-27] MEDS: CHOLECALCIFEROL 1,000 UNITS 25 MCG TAB PO SCH (10:46)
[2021-12-27] MEDS: MAGNESIUM OXIDE 400 MG TAB PO SCH ×2 (10:46→20:12)
[2021-12-27] MEDS: FOLIC ACID 1 MG TAB PO SCH (10:53)
[2021-12-27] MEDS: GABAPENTIN 600 MG TAB PO SCH (12:58)
[2021-12-27] MEDS: LORazepam 2 MG/1 ML VIAL IV PRN (17:34)
--- NOTE | 2021-12-27 18:57 | Hospitalist Progress Note ---
Date of Service December 27, 2021 Assessment & Plan (1) Alcohol intoxication: (2) Hyponatremia: Plan: This is a 56-year-old male with history of alcoholism, history of hyponatremia, recurrent admissions for alcoholism, some ambulatory dysfunction, who presents with alcoholism and ambulatory dysfunction. 1. Alcoholism: Alcohol level on admision was 253. Continue AWSS protocol, on gabapentin taper with IV Ativan p.r.n.On thiamine, folate, multivitamins. Monitor closely for withdrawals. Pt denies opiate use as OP, ?? natrexone, will d/w patient. ?? AA group, will rediscuss w/ pt. 2. Frequent falls, secondary to above: PT/OT eval. patient had recent extensiv e work up recently and was seen by neuro and Dr Lucio. Recommended OP EMG. 3. Hyponatremia: likely beer potomania- resolved. Patient noncompliant with fluid and dietary restriction, always asking to lift the restriction as soon as he is put on them. 4. Hypomagnesemia:Monitor and replete, on supplementation. 5. Hypertension: On amlodipine- relatively stable 6. Esophageal stenosis: Needs to be on chopped soft diet. 7. Chronic anemia: Hemoglobin 10.9, stable 8. Chest discomfort- resolved. trop trend negative 9. History of tobacco abuse. 10. Hives- resolved DVT prophylaxis: sq lovenox Dispo- On AWSS protocol. Needs PT/OT eval and may be SNF. High risks of readmission. Admission and Anticipated Discharge Date Admission Date: December 24, 2021 Subjective Patient seen and examined at bedside as a follow-up of alcohol abuse and freque nt falls. Patient was lying in bed, on room air, NAD, no new acute events overnight. Patient reports eating okay and moving bowels okay. Patient denies any fever/chills/headache/dizziness/chest pain/palpitation. Patient reports weakness and balance problem. Patient has been drinking again after discharge. Physical Exam Physical Exam: GENERAL: Alert and oriented x3. NAD, on RA. HEENT: No pallor, no icterus. Pupils equal, round and reactive to light. Oral mucosa moist. NECK: No JVD, no neck masses. HEART: S1 and S2 heard. Regular rate and rhythm. No murmur, no gallop. RESPIRATORY SYSTEM: Normal AP diameter. No accessory muscle use. No wheezing, no crackles. ABDOMEN: Soft, bowel sounds present, nontender, no distention. CENTRAL NERVOUS SYSTEM: No facial droop. Speech is clear. Obeys simple commands. Moves extremities. EXTREMITIES: No edema, no erythema seen. Results & Data Results & Data ([facility]) Vital Signs (Past 12 Hours) Vital Signs Temp Pulse Pulse Resp BP BP Pulse Ox 12/27/21 16:00 36.7 C 85 20 158/90 H 99 12/27/21 12:00 36.5 C 90 18 152/98 H 98 12/27/21 07:35 63 12/27/21 07:07 36.8 C 73 18 136/83 96 (1) Alcohol intoxication Complication of substance-induced condition: uncomplicated Qualified Code(s): F10.920 - Alcohol use, unspecified with intoxication, uncomplicated
[2021-12-27] MEDS: ENOXAPARIN INJ 40 MG/0.4 ML SYR SQ SCH (20:12)
[2021-12-28 06:11] LABS: Hematocrit (blood only) 34.3 % (42-52); Hemoglobin 11.2 g/dL (14.0-18.0); Mean Corpuscular Hemoglobin 26.9 pg (25-34); Mean Corpuscular Hgb Conc 32.7 g/dL (32-36); Mean Corpuscular Volume 82.5 fL (80-100); Mean Platelet Volume 8.5 fL (7.4-10.4); Platelet Count 300 K/uL (130-400); RDW Coefficient of Variation 16.5 % (11.5-14.5); RDW Standard Deviation 49.7 fL (36.4-46.3); Red Blood Count 4.16 M/uL (4.7-6.1); White Blood Count 6.25 K/uL (4.8-10.8)
[2021-12-28 06:41] LABS: Magnesium 1.8 mg/dl (1.7-2.4); Phosphorus 4.3 mg/dl (2.5-4.9)
[2021-12-28] MEDS: MULTIVITAMIN TAB PO SCH (08:20)
[2021-12-28] MEDS: amLODIPine BESYLATE 5 MG TAB PO SCH (08:20)
[2021-12-28] MEDS: THIAMINE HCL 100 MG TAB PO SCH (08:20)
[2021-12-28] MEDS: CHOLECALCIFEROL 1,000 UNITS 25 MCG TAB PO SCH (08:20)
[2021-12-28] MEDS: MAGNESIUM OXIDE 400 MG TAB PO SCH ×2 (08:21→20:33)
[2021-12-28] MEDS: ONDANSETRON INJ 2 MG/ML 2 ML VIAL IV PRN ×2 (08:21→19:43)
[2021-12-28] MEDS: FOLIC ACID 1 MG TAB PO SCH (08:21)
[2021-12-28] MEDS: ACETAMINOPHEN 325 MG TAB PO PRN (11:22)
[2021-12-28] MEDS: LORazepam 2 MG/1 ML VIAL IV PRN (11:38)
[2021-12-28] MEDS ORDERED: GABAPENTIN 600 MG TAB PO SCH (12:00)
--- NOTE | 2021-12-28 17:50 | Hospitalist Progress Note ---
Date of Service December 28, 2021 Assessment & Plan (1) Alcohol intoxication: (2) Hyponatremia: Plan: This is a 56-year-old male with history of alcoholism, history of hyponatremia, recurrent admissions for alcoholism, some ambulatory dysfunction, who presents with alcoholism and ambulatory dysfunction. 1. Alcoholism: Alcohol level on admision was 253. Continue AWSS protocol, on gabapentin taper with IV Ativan p.r.n.On thiamine, folate, multivitamins. Monitor closely for withdrawals. Pt denies opiate use as OP, ?? natrexone. ?? AA group. 2. Frequent falls, secondary to above: PT/OT eval. patient had recent extensive work up recently and was seen by neuro and Dr Lucio. Recommended OP EMG. 3. Hyponatremia: likely beer potomania- resolved. Patient noncompliant with fluid and dietary restriction, always asking to lift the restriction as soon as he is put on them. 4. Hypomagnesemia:Monitor and replete, on supplementation. 5. Hypertension: On amlodipine- relatively stable 6. Esophageal stenosis: Needs to be on chopped soft diet. 7. Chronic anemia: Hemoglobin 10.9, stable 8. Chest discomfort- resolved. trop trend negative 9. History of tobacco abuse. 10. Hives- resolved DVT prophylaxis: sq lovenox Dispo- On AWSS protocol. Needs PT/OT eval and may be SNF. High risks of readmission. Admission and Anticipated Discharge Date Admission Date: December 24, 2021 Subjective Patient seen and examined at bedside as a follow-up of alcohol abuse and frequent falls. Patient was lying in bed, on room air, NAD, no new acute events overnight. Patient reports nausea today, has received Zofran. Reports eating less today. Continue to follow. Patient denies any fever/chills/headache/dizziness/chest pain/palpitation. Patient reports weakness and balance problem. Physical Exam Physical Exam: GENERAL: Alert and oriented x3. NAD, on RA. HEENT: No pallor, no icterus. Pupils equal, round and reactive to light. Oral mucosa moist. NECK: No JVD, no neck masses. HEART: S1 and S2 heard. Regular rate and rhythm. No murmur, no gallop. RESPIRATORY SYSTEM: Normal AP diameter. No accessory muscle use. No wheezing, no crackles. ABDOMEN: Soft, bowel sounds present, nontender, no distention. CENTRAL NERVOUS SYSTEM: No facial droop. Speech is clear. Obeys simple commands. Moves extremities. EXTREMITIES: No edema, no erythema seen. Results & Data Results & Data ([facility]) Vital Signs (Past 12 Hours) Vital Signs Temp Pulse Resp BP Pulse Ox 12/28/21 14:51 36.8 C 88 18 131/76 97 12/28/21 11:15 36.7 C 76 20 126/79 90 12/28/21 07:36 36.3 C L 59 L 18 150/82 H 92 (1) Alcohol intoxication Complication of substance-induced condition: uncomplicated Qualified Code(s): F10.920 - Alcohol use, unspecified with intoxication, uncomplicated
[2021-12-28] MEDS ORDERED: LORazepam 2 MG in SYRINGE 1 ML IV PRN (17:55)
[2021-12-28] MEDS ORDERED: ATIVAN IV ALCOHOL WITHDRAWL IV PRN (17:55)
[2021-12-28] MEDS ORDERED: LORazepam 3 MG in SYRINGE 1.5 ML IV PRN (17:55)
[2021-12-28] MEDS ORDERED: LORazepam 1 MG in SYRINGE 0.5 ML IV PRN (17:55)
[2021-12-28] MEDS: ENOXAPARIN INJ 40 MG/0.4 ML SYR SQ SCH (20:33)
[2021-12-29] MEDS: ACETAMINOPHEN 325 MG TAB PO PRN ×3 (02:30→19:40)
[2021-12-29] MEDS: hydrOXYzine HCl 25 MG TAB PO PRN (03:05)
[2021-12-29] MEDS: MAGNESIUM OXIDE 400 MG TAB PO SCH ×2 (07:40→21:27)
[2021-12-29] MEDS: CHOLECALCIFEROL 1,000 UNITS 25 MCG TAB PO SCH (07:40)
[2021-12-29] MEDS: amLODIPine BESYLATE 5 MG TAB PO SCH (07:41)
[2021-12-29] MEDS: THIAMINE HCL 100 MG TAB PO SCH (07:41)
[2021-12-29] MEDS: FOLIC ACID 1 MG TAB PO SCH (07:41)
[2021-12-29] MEDS: MULTIVITAMIN TAB PO SCH (07:41)
--- NOTE | 2021-12-29 17:39 | Hospitalist Progress Note ---
Date of Service December 29, 2021 Assessment & Plan (1) Alcohol intoxication: (2) Hyponatremia: Plan: This is a 56-year-old male with history of alcoholism, history of hyponatremia, recurrent admissions for alcoholism, some ambulatory dysfunction, who presents with alcoholism and ambulatory dysfunction. 1. Alcoholism: Alcohol level on admision was 253. Continue AWSS protocol, on gabapentin taper with IV Ativan p.r.n.On thiamine, folate, multivitamins. Monitor closely for withdrawals. Pt denies opiate use as OP, ?? natrexone. ?? AA group. 2. Frequent falls, secondary to above: PT/OT eval. patient had recent extensive work up recently and was seen by neuro and Dr Lucio. Recommended OP EMG. 3. Hyponatremia: likely beer potomania- resolved. Patient noncompliant with fluid and dietary restriction, always asking to lift the restriction as soon as he is put on them. 4. Hypomagnesemia:Monitor and replete, on supplementation. 5. Hypertension: On amlodipine- relatively stable 6. Esophageal stenosis: Needs to be on chopped soft diet. 7. Chronic anemia: Hemoglobin 10.9, stable 8. Chest discomfort- resolved. trop trend negative 9. History of tobacco abuse. 10. Hives- resolved DVT prophylaxis: sq lovenox Dispo- On AWSS protocol. Needs PT/OT eval and may be SNF. High risks of readmission. Admission and Anticipated Discharge Date Admission Date: December 24, 2021 Subjective Patient seen and examined at bedside as a follow-up of alcohol abuse and frequent falls. Patient was lying in bed, on room air, NAD, no new acute events overnight. Patient reports improvement in his nausea and is eating better, also reports his balance and gait is getting slightly better. Patient made aware/reiterated again that he needs to stop drinking alcohol. Patient denies any fever/chills/headache/dizziness/chest pain/palpitation. Physical Exam Physical Exam: GENERAL: Alert and oriented x3. NAD, on RA. HEENT: No pallor, no icterus. Pupils equal, round and reactive to light. Oral mucosa moist. NECK: No JVD, no neck masses. HEART: S1 and S2 heard. Regular rate and rhythm. No murmur, no gallop. RESPIRATORY SYSTEM: Normal AP diameter. No accessory muscle use. No wheezing, no crackles. ABDOMEN: Soft, bowel sounds present, nontender, no distention. CENTRAL NERVOUS SYSTEM: No facial droop. Speech is clear. Obeys simple commands. Moves extremities. EXTREMITIES: No edema, no erythema seen. Results & Data Results & Data ([facility]) Vital Signs (Past 12 Hours) Vital Signs Temp Pulse Pulse Resp BP BP Pulse Ox 12/29/21 15:48 36.7 C 81 20 134/80 97 12/29/21 11:41 36.8 C 75 20 166/87 H 98 12/29/21 07:51 36.7 C 70 20 144/88 H 97 12/29/21 07:45 69 (1) Alcohol intoxication Complication of substance-induced condition: uncomplicated Qualified Code(s): F10.920 - Alcohol use, unspecified with intoxication, uncomplicated
[2021-12-29] MEDS: ONDANSETRON INJ 2 MG/ML 2 ML VIAL IV PRN (19:33)
[2021-12-29] MEDS: ENOXAPARIN INJ 40 MG/0.4 ML SYR SQ SCH (21:27)
[2021-12-30 08:14] LABS: BUN Creatinine Ratio 8.5 (10-20); Calcium 9.2 mg/dl (8.5-10.1); Creatinine Clr Calc Pharmacy 142.8 ml/min; Est GFR (African American) 130.3 ml/min; Est GFR (Non-African American) 112.4 ml/min; Magnesium 1.9 mg/dl (1.7-2.4); Phosphorus 3.6 mg/dl (2.5-4.9)
[2021-12-30] MEDS: MULTIVITAMIN TAB PO SCH (08:37)
[2021-12-30] MEDS: amLODIPine BESYLATE 5 MG TAB PO SCH (08:37)
[2021-12-30] MEDS: FOLIC ACID 1 MG TAB PO SCH (08:37)
[2021-12-30] MEDS: THIAMINE HCL 100 MG TAB PO SCH (08:37)
[2021-12-30] MEDS: CHOLECALCIFEROL 1,000 UNITS 25 MCG TAB PO SCH (08:37)
[2021-12-30] MEDS: MAGNESIUM OXIDE 400 MG TAB PO SCH ×2 (08:37→20:28)
[2021-12-30] MEDS: ACETAMINOPHEN 325 MG TAB PO PRN ×3 (08:39→20:27)
--- NOTE | 2021-12-30 16:52 | Hospitalist Progress Note ---
Date of Service December 30, 2021 Assessment & Plan (1) Alcohol intoxication: (2) Hyponatremia: Plan: This is a 56-year-old male with history of alcoholism, history of hyponatremia, recurrent admissions for alcoholism, some ambulatory dysfunction, who presents with alcoholism and ambulatory dysfunction. 1. Alcoholism: Alcohol level on admision was 253. Continue AWSS protocol, on gabapentin taper with IV Ativan p.r.n.On thiamine, folate, multivitamins. Monitor closely for withdrawals. Pt denies opiate use as OP, patient unsure about naltrexone, patient denies alcoholic rehab or AA group. 2. Frequent falls, secondary to above: PT/OT eval. patient had recent extensive work up recently and was seen by neuro and Dr Lucio. Recommended OP EMG. 3. Hyponatremia: likely beer potomania- resolved. Patient noncompliant with fluid and dietary restriction, always asking to lift the restriction as soon as he is put on them. 4. Hypomagnesemia:Monitor and replete, on supplementation. 5. Hypertension: On amlodipine- relatively stable 6. Esophageal stenosis: Needs to be on chopped soft diet. 7. Chronic anemia: Hemoglobin 10.9, stable 8. Chest discomfort- resolved. trop trend negative 9. History of tobacco abuse. 10. Hives- resolved DVT prophylaxis: sq lovenox Dispo- PT/OT eval and may be SNF. High risks of readmission. Can DC when social issues resolved. Admission and Anticipated Discharge Date Admission Date: December 24, 2021 Subjective Patient seen and examined at bedside as a follow-up of alcohol abuse and frequent falls. Patient was lying in bed, on room air, NAD, no new acute events overnight. Patient reports improvement in his nausea and is eating better, also reports his balance and gait is getting slightly better. Patient made aware/reiterated again that he needs to stop drinking alcohol, ask about outpatient alcoholic rehab--patient declined, ask about use of naltrexone to decrease the craving of alcohol --- patient did not want to answer this question after asking this multiple times. Patient denies any fever/chills/headache/dizziness/chest pain/palpitation. Physical Exam Physical Exam: GENERAL: Alert and oriented x3. NAD, on RA. HEENT: No pallor, no icterus. Pupils equal, round and reactive to light. Oral mucosa moist. NECK: No JVD, no neck masses. HEART: S1 and S2 heard. Regular rate and rhythm. No murmur, no gallop. RESPIRATORY SYSTEM: Normal AP diameter. No accessory muscle use. No wheezing, no crackles. ABDOMEN: Soft, bowel sounds present, nontender, no distention. CENTRAL NERVOUS SYSTEM: No facial droop. Speech is clear. Obeys simple commands. Moves extremities. EXTREMITIES: No edema, no erythema seen. Results & Data Results & Data ([facility]) Vital Signs (Past 12 Hours) Vital Signs Temp Pulse Pulse Resp BP BP Pulse Ox 12/30/21 15:29 37.1 C 80 18 149/84 H 97 12/30/21 11:36 37.1 C 79 16 136/80 98 12/30/21 07:00 78 12/30/21 06:53 36.9 C 75 18 140/80 96 (1) Alcohol intoxication Complication of substance-induced condition: uncomplicated Qualified Code(s): F10.920 - Alcohol use, unspecified with intoxication, uncomplicated
[2021-12-30] MEDS: ENOXAPARIN INJ 40 MG/0.4 ML SYR SQ SCH (20:28)
[2021-12-31 06:33] LABS: Hematocrit (blood only) 34.6 % (42-52); Hemoglobin 11.4 g/dL (14.0-18.0); Mean Corpuscular Hemoglobin 27.2 pg (25-34); Mean Corpuscular Hgb Conc 32.9 g/dL (32-36); Mean Corpuscular Volume 82.6 fL (80-100); Mean Platelet Volume 8.8 fL (7.4-10.4); Platelet Count 223 K/uL (130-400); RDW Coefficient of Variation 16.9 % (11.5-14.5); RDW Standard Deviation 51.1 fL (36.4-46.3); Red Blood Count 4.19 M/uL (4.7-6.1)
[2021-12-31] MEDS: FOLIC ACID 1 MG TAB PO SCH (08:11)
[2021-12-31] MEDS: CHOLECALCIFEROL 1,000 UNITS 25 MCG TAB PO SCH (08:11)
[2021-12-31] MEDS: amLODIPine BESYLATE 5 MG TAB PO SCH (08:11)
[2021-12-31] MEDS: MAGNESIUM OXIDE 400 MG TAB PO SCH (08:11)
[2021-12-31] MEDS: MULTIVITAMIN TAB PO SCH (08:11)
[2021-12-31] MEDS: THIAMINE HCL 100 MG TAB PO SCH (08:12)
[2021-12-31] MEDS: ACETAMINOPHEN 325 MG TAB PO PRN ×2 (09:24→16:17)
--- NOTE | 2021-12-31 17:03 | Discharge Summary ---
Date of Service December 31, 2021 Admission HPI Per Admitting Provider DATE OF ADMISSION: 12/24/2021. CHIEF COMPLAINT: Alcoholism, ambulatory dysfunction. 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 The patient was recently in the hospital for fall and alcoholism. At that time, SNF did not accept him because he did not meet criteria. Discharged back home. The patient says sometimes he is drinking 12 pack beers, today he drank 3 beers and he thinks he is in withdrawal, he is not feeling good. He is not able to ambulate and is feeling weak and tired, so he came to the hospital. He is hard of hearing. When asked about if he has any chest pain, he is answering may be coming on. When asked about shortness of breath, he says it may come. May be nauseous. No vomiting, no headache, no blurred visions, no earache, no sore throat, no cough, no fevers, no abdominal pain. He says he is micturating a lot. Normal bladder and bowel movements. His hemodynamics are stable. ALLERGIES: HYDRALAZINE, PENICILLIN. PAST MEDICAL HISTORY: As mentioned above. PAST SURGICAL HISTORY: EGDs, hip surgery. MEDICATIONS: Last admit , he was discharged on amlodipine 5 mg p.o. daily, vitamin D 1000 units p.o. daily, Excedrin Extra Strength one tablet p.o. b.i.d. p.r.n., folic acid 1 mg p.o. daily, hydroxyzine 25 mg p.o. b.i.d. p.r.n., multivitamins with folic acid one tablet p.o. daily, potassium chloride 20 mEq p.o. a.m., thiamine 100 mg p.o. a.m., magnesium 400 mg p.o. b.i.d. FAMILY HISTORY: Significant for no family history on file. SOCIAL HISTORY: Seems to be drinking as per the records 6 to 7 beers a day. No known drug use. REVIEW OF SYSTEMS: As per HPI. Rest of the review of systems is negative. Admission Exam Per Admitting Provider GENERAL: The patient is of moderate build, hard of hearing, not in acute dist ress. VITAL SIGNS: Temperature 36.5, pulse 86, respiratory rate 15, blood pressure 148/88, oxygen 92% on room air. HEENT: Pupils equal, round and reactive to light. Oral mucosa moist. NECK: No JVD, no neck masses. CARDIOVASCULAR: S1 and S2 heard. Regular rate and rhythm. No murmur, no gallop. RESPIRATORY SYSTEM: Normal AP diameter. No accessory muscle use. No wheezing, no crackles. ABDOMEN: Soft. Bowel sounds are present, nontender, no distention. CENTRAL NERVOUS SYSTEM: Cranial nerves II through XII are grossly intact, nonfocal. EXTREMITIES: Mild pedal edema present. No obvious erythema seen. Principal Diagnosis Alcohol abuse, denies naltrexone Frequent falls secondary to above Hyponatremia, dietary noncompliance and from alcoholism Hypertension, medical noncompliance Discharge Exam GENERAL: Alert and oriented x3. NAD, on RA. HEENT: No pallor, no icterus. Pupils equal, round and reactive to light. Oral mucosa moist. NECK: No JVD, no neck masses. HEART: S1 and S2 heard. Regular rate and rhythm. No murmur, no gallop. RESPIRATORY SYSTEM: Normal AP diameter. No accessory muscle use. No wheezing, no crackles. ABDOMEN: Soft, bowel sounds present, nontender, no distention. CENTRAL NERVOUS SYSTEM: No facial droop. Speech is clear. Obeys simple commands. Moves extremities. EXTREMITIES: No edema, no erythema seen. Discharge Data Allergies Allergy/AdvReac Type Severity Reaction Status Date / Time hydralazine Allergy Intermediate rapid drop Verified 12/25/21 00:36 in BP/Vomiting Penicillins AdvReac Mild TIRED Verified 12/25/21 00:36 Consultations 12/24/21 22:48 ED Decision to Admit Stat Ordered Studies 12/24/21 21:09 CT head/brain wo con Urgent Hospital Course (1) Alcohol intoxication: (2) Hyponatremia: This is a 56-year-old male with history of alcoholism, history of hyponatremia, recurrent admissions for alcoholism, some ambulatory dysfunction, who presents with alcoholism and ambulatory dysfunction. 1. Alcoholism: Alcohol level on admission was 253. S/P AWSS protocol. On thiamine, folate, multivitamins. Pt denies opiate use as OP, patient denies naltrexone after multiple counseling, patient denies alcoholic rehab or AA group. Patient seen to be moving around freely in the hallway by myself and by RN. Patient insisting to go home today, patient had denied bed at [facility] per CM note. Per CM note, he does not want to consider a boarding home. I was paged later in the afternoon by RN that patient insisting to go home. Upon review of new updates, he was denying placement now and talked about the same with him in presence of RN and made sure that he understands that once he goes home his insurance will not cover the placement. Patient insist on going home and does not want to stay in the hospital. 2. Frequent falls, secondary to above: PT/OT eval. patient had recent extensive work up recently and was seen by neuro and Dr Lucio. Recommended OP EMG. 3. Hyponatremia: likely beer potomania- resolved. Patient noncompliant with fluid and dietary restriction, always asking to lift the restriction as soon as he is put on them. 4. Hypomagnesemia:Monitor and replete, on supplementation. 5. Hypertension: On amlodipine- relatively stable 6. Esophageal stenosis: Needs to be on chopped soft diet. 7. Chronic anemia: Hemoglobin 10.9, stable 8. Chest discomfort- resolved. trop trend negative 9. History of tobacco abuse. 10. Hives- resolved DVT prophylaxis: sq lovenox Dispo- PT/OT eval and may be SNF. High risks of readmission. Patient denying placement now, insisting to go home. Following instructions communicated to the patient prior to discharge: Follow-up with the primary care physician within a week time. Follow-up with neurology for outpatient EMG set up. Strongly advise against any amount of alcohol drinking in future. Maintain heart healthy, low-sodium diet with fluid restriction of 2 L in 24 hours. Take your medications as prescribed. Total Time Total Time Spent Total Time Spent (In Minutes): 45 Discharge Plan Discharge Items Patient Disposition: Home - Home Health Services Reason For Visit: ALCOHOL INTOXICATION Discharge Diagnosis: Alcohol abuse, denies naltrexone Frequent falls secondary to above Hyponatremia, dietary noncompliance and from alcoholism Hypertension, medical noncompliance Activity: Resume your previous activity Non-emergency contact: Primary Care Provider Call non-emergency contact if: you have any medication questions Follow-up/Referrals: Denis Burleson DO [Primary Care Provider] - Diet: Low Sodium (2gm) Fluids: 1800ml (7 cups) Addtl Attending Provider Instructions: Follow-up with the primary care physician within a week time. Follow-up with neurology for outpatient EMG set up. Strongly advise against any amount of alcohol drinking in future. Maintain heart healthy, low-sodium diet with fluid restriction of 2 L in 24 hours. Take your medications as prescribed. Pending Studies at Discharge: No Stand-Alone Forms: My [facility], Smoking Cessation Medications and DC Order Prescriptions: New hydroxyzine HCl 25 mg Tablet 25 mg PO BID PRN (Reason: itching) Qty: 30 RF: 0 magnesium oxide 400 mg (241.3 mg magnesium) Tablet 400 mg PO BID Qty: 60 RF: 0 folic acid 1 mg Tablet 1 mg PO QAM Qty: 30 RF: 0 Continued cholecalciferol (vitamin D3) [Vitamin D3] 25 mcg (1,000 unit) tablet 1,000 unit PO DAILY RF: 0 Excedrin Extra Strength 250-250-65 mg Tablet 1 tab PO BID PRN (Reason: Pain) RF: 0 multivitamin with folic acid [Daily-Ifeanyi (with folic acid)] 400 mcg Tablet 1 tab PO QAM Qty: 30 RF: 0 thiamine HCl (vitamin B1) 100 mg Tablet 100 mg PO QAM Qty: 30 RF: 0 Changed amlodipine [Norvasc] 5 mg tablet 5 mg PO DAILY Qty: 30 RF: 0 Discharge Orders: Discharge Order (Routine); Ordered 12/31/21 Ordered By: Eden Paul Admission Data Admit Date/Time: 12/24/21 23:26 Attending Provider: Eden Paul Admit Provider: Marcus Dalton Primary Care Provider: Denis Burleson Other Providers: Marcus Dalton ; [facility]
== END 2021-12-31 18:13 | disposition home or self-care (01) | DRG 897 ==
LOC: ED 20:46 → 2N 23:26 → SUATTDRO 23:26 → 2N 12-25 00:28

== ENCOUNTER 2022-03-02 19:02 | Inpatient (IN) ==
[2022-03-02] MEDS ORDERED: SODIUM CHLORIDE 0.9% 500 ML IV STA (19:13)
[2022-03-02] MEDS ORDERED: LORazepam 2 MG/1 ML VIAL IV STA (19:14)
--- NOTE | 2022-03-02 19:15 | Emergency Department Note ---
Impression & Plan Alcohol withdrawal ADMIT ED Provider Note HPI: The patient is a 56-year-old male who presents the emergency department with a chief complaint of ambulatory dysfunction. Patient does have a history of alcohol abuse, states that he stopped drinking about 2 days ago because he felt like he was too unsteady on his feet to go get alcohol. Patient denies any falls, denies any focal complaint of pain. He does have mild resting tremor of the bilateral upper extremities on arrival but he is alert and answering my questions appropriately. On arrival the patient is tremulous, he is alert on arrival, does not admit any hallucinations. ROS: -General: Weakness, ambulatory dysfunction -Neuro: Tremulousness, history of alcohol abuse *10 point review systems was conducted and is otherwise negative unless stated above *Outpatient medications and allergy history reviewed PE: General: Alert, NAD HEENT: Normocephalic, atraumatic Eyes: Extraocular eye movement is intact, no scleral erythema Pulmonary: Clear to auscultation bilaterally, no wheezing Cardio: Regular rate and rhythm GI: Abdomen is soft, nontender : No suprapubic tenderness MSK: No evidence of trauma or malformation of the extremities, no edema Skin: No evidence of rash Neuro: Alert, no focal deficits, resting tremors of the bilateral upper extremities Psychiatric: Cooperative campus monitor: - An order was placed for continuous cardiac monitoring - Patient was noted to be in sinus rhythm with rate of 90 EKG: Rate: 104 Rhythm: Sinus tachycardia Intervals: Within normal limits ST changes: No ST elevation Time: 1913 Medical Decision Making: Patient presented to the emergency department with a chief complaint of ambulatory dysfunction. Patient denies any falls but states he feels very unsteady on his feet. He stopped drinking alcohol recently. On arrival he is hypertensive and tremulous. He was given Ativan with good improvement in his symptoms. Lab work otherwise shows evidence of hypokalemia which was repleted orally, also hypochloremia, patient was given Ativan and IV fluids here in the ED, on my reassessment he states he still feels too unwell to go home. I do believe there is likely an element of alcohol withdrawal given improvement with Ativan and tremulousness and hypertension on arrival. I discussed the case with the on-call hospitalist, Dr. Dalton, who accepted the patient to an inpatient bed for further care. * CRITICAL CARE TIME: 33 min -Management of acute alcohol withdrawal requiring IV benzodiazepines for improvement in symptoms, time spent at the bedside, arrangement of admission Diagnosis: 1. Alcohol withdrawal, acute 2. Ambulatory dysfunction 3. Tremulousness 4. Hypokalemia 5. Hypochloremia Disposition: Admission Keven Mcdaniels DO Emergency Medicine Past Med/Surg History Medical History Adult failure to thrive Alcohol use disorder Ambulatory dysfunction Anemia Anxiety Aortic root dilation Ataxia Bunion of unspecified foot Chronic hyponatremia Dementia DTs (delirium tremens) Esophageal tear Flat foot, acquired Frequent falls Generalized atherosclerosis Generalized weakness Hammer toe, acquired unspecified Hearing deficit Hereditary and idiopathic neuropathy, unspecified History of COVID-19 ? 07/17/20 per records History of esophageal dilatation last done 04/16/21 @ [facility] History of esophageal stricture Hx of fracture of hip Hypertension Hypokalemia Hypomagnesemia [facility] 2500 cc fluid daily restriction was noted in records Sensorineural hearing loss (SNHL) of both ears Subgaleal hemorrhage Surgical History History of esophagogastroduodenoscopy (EGD) (~04/16/21) History of hip surgery s/p fall and fx Family History Other Cancer Hypertension Denies family history of Myocardial infarction Stroke Social History Smoking Status: Former smoker Tobacco Type: Cigarettes Second Hand Exposure: No; Hx Alcohol Use: Yes Alcohol type: beer Alcohol Intake Frequency Comment: 7-10 beers a day, uncertain which kind of beer Hx Substance Use: No Preferred Language: Citizen [place] Communication Ability: Unable Visual Impairment: No Limitations Hearing Ability: Hard of Hearing [employer] Required: No Beliefs That Will Affect Care: None marital status: Single Current Living Situation: Alone Current Living Situation Comment: [address] Feels Safe at Home: No Is there a partner from a previous relationship who is making you feel unsafe now?: No Assistive Devices: Cane and Walker Allergies Allergies Allergy/AdvReac Type Severity Reaction Status Date / Time hydralazine Allergy Intermediate rapid drop Verified 02/11/22 18:44 in BP/Vomiting Penicillins AdvReac Mild TIRED Verified 02/11/22 18:44 Home Meds Home Medications Medication Instructions Recorded Confirmed thiamine HCl (vitamin B1) 100 mg 100 mg PO DAILY 02/02/22 02/11/22 tablet (Vitamin B-1) riboflavin (vitamin B2) 50 mg 0 mg PO DAILY 02/11/22 02/11/22 tablet (Vitamin B-2) Previous Rx's Medication Instructions Recorded multivitamin with folic acid 400 1 tab PO QAM #30 tabs 10/29/21 mcg tablet (Daily-Ifeanyi (with folic acid)) folic acid 1 mg tablet 1 mg PO QAM #30 tabs 12/31/21 Results & Data (ED) Vital Signs Vital Signs - 24 hr 03/02/22 19:10 03/02/22 19:18 03/02/22 19:19 Temperature 36.8 C Temperature Source Oral Pulse Rate 86 Pulse Rate [Apical] Respiratory Rate 22 Respiratory Effort / Characteristics Non-Labored Spontaneous Blood Pressure 180/129 H Blood Pressure [Right Arm] Blood Pressure Mean 146 Blood Pressure Mean [Right Arm] Pulse Oximetry 99 99 98 Oxygen Delivery Method Room Air Room Air Room Air Sepsis Recent Fever Within 48 Hours No Sepsis New/Unexplained Change in Mental Status No Sepsis Action Taken by Nursing No Action Required 03/02/22 19:56 Temperature Temperature Source Pulse Rate Pulse Rate [Apical] 94 H Respiratory Rate 20 Respiratory Effort / Characteristics Blood Pressure Blood Pressure [Right Arm] 163/109 H Blood Pressure Mean Blood Pressure Mean [Right Arm] 127 Pulse Oximetry 98 Oxygen Delivery Method Room Air Sepsis Recent Fever Within 48 Hours Sepsis New/Unexplained Change in Mental Status Sepsis Action Taken by Nursing Laboratory Data Result diagrams: 03/02/22 19:48 03/02/22 19:48 Lab Results 03/02/22 03/02/22 03/02/22 Range/Units 19:48 19:48 19:48 WBC 5.65 (4.8-10.8) K/ul RBC 5.17 (4.63-6.08) M/uL Hgb 13.1 L (14.0-18.0) g/dl Hct 41.0 (40.1-51.0) % MCV 79.3 L (80.0-100.0) fL MCH 25.3 (25.0-34.0) pg MCHC 32.0 (32.0-36.0) g/dL RDW Std Deviation 58.4 H (36.4-46.3) fL RDW Coeff of Luis 20.7 H (11.5-14.5) % Plt Count 120 L (130-400) K/uL MPV 9.3 L (9.4-12.4) fL Immature Gran % (Auto) 0.2 % Neut % (Auto) 65.6 % Lymph % (Auto) 12.9 % Irion % (Auto) 20.2 % Eos % (Auto) 0.4 % Baso % (Auto) 0.7 % Neut # (Auto) 3.71 (1.4-6.5) K/uL Lymph # (Auto) 0.73 L (1.2-3.4) K/uL Irion # (Auto) 1.14 H (0.24-0.82) K/uL Eos # (Auto) 0.02 (0-0.50) K/uL Baso # (Auto) 0.04 (0-0.2) K/uL Immature Gran # (Auto) 0.01 (0.00-0.02) K/uL Anisocytosis Present Tear Drop Cells 1+ Sodium 133 L (136-145) mmol/L Potassium 3.2 L (3.5-5.1) mmol/L Chloride 90 L (98-107) mmol/L Carbon Dioxide 26 (21-32) mmol/L Anion Gap 17 H (3-11) BUN 6 (6-23) mg/dl Creatinine 0.64 (0.6-1.4) mg/dl Est Cr Clr Drug Dosing Not Reportable Est GFR ( Amer) 126.0 ml/min Est GFR (Non-Af Amer) 108.7 ml/min BUN/Creatinine Ratio 9.4 L (10-20) Glucose 98 (70-99(Fasting)) mg/dl Calcium 9.5 (8.5-10.1) mg/dl Total Bilirubin 1.2 H (0.2-1.0) mg/dl AST 54 H (13-39) U/L ALT 25 (7-52) U/L Alkaline Phosphatase 86 (34-104) U/L Total Protein 8.3 (6.0-8.3) gm/dl Albumin 4.7 (3.4-5.0) gm/dl Globulin 3.6 (2.5-4.0) gm/dl Albumin/Globulin Ratio 1.3 (0.9-2) Lipase 38 (11-82) U/L Ethyl Alcohol mg/dL < 10.0 (<10.0) mg/dl SARS-CoV-2, RNA, NAAT (NEGATIVE) 03/02/22 Range/Units 19:58 WBC (4.8-10.8) K/ul RBC (4.63-6.08) M/uL Hgb (14.0-18.0) g/dl Hct (40.1-51.0) % MCV (80.0-100.0) fL MCH (25.0-34.0) pg MCHC (32.0-36.0) g/dL RDW Std Deviation (36.4-46.3) fL RDW Coeff of Luis (11.5-14.5) % Plt Count (130-400) K/uL MPV (9.4-12.4) fL Immature Gran % (Auto) % Neut % (Auto) % Lymph % (Auto) % Irion % (Auto) % Eos % (Auto) % Baso % (Auto) % Neut # (Auto) (1.4-6.5) K/uL Lymph # (Auto) (1.2-3.4) K/uL Irion # (Auto) (0.24-0.82) K/uL Eos # (Auto) (0-0.50) K/uL Baso # (Auto) (0-0.2) K/uL Immature Gran # (Auto) (0.00-0.02) K/uL Anisocytosis Tear Drop Cells Sodium (136-145) mmol/L Potassium (3.5-5.1) mmol/L Chloride (98-107) mmol/L Carbon Dioxide (21-32) mmol/L Anion Gap (3-11) BUN (6-23) mg/dl Creatinine (0.6-1.4) mg/dl Est Cr Clr Drug Dosing Est GFR ( Amer) ml/min Est GFR (Non-Af Amer) ml/min BUN/Creatinine Ratio (10-20) Glucose (70-99(Fasting)) mg/dl Calcium (8.5-10.1) mg/dl Total Bilirubin (0.2-1.0) mg/dl AST (13-39) U/L ALT (7-52) U/L Alkaline Phosphatase (34-104) U/L Total Protein (6.0-8.3) gm/dl Albumin (3.4-5.0) gm/dl Globulin (2.5-4.0) gm/dl Albumin/Globulin Ratio (0.9-2) Lipase (11-82) U/L Ethyl Alcohol mg/dL (<10.0) mg/dl SARS-CoV-2, RNA, NAAT NEGATIVE (NEGATIVE) Administered Medications Discontinued Medications Sodium Chloride (Nss) 500 mls @ 999 mls/hr IV .Q31M STA Stop: 03/02/22 19:43 Last Infusion: 03/02/22 20:29 Dose: 0 mls/hr Documented By: Admin: 03/02/22 19:54 Dose: 999 mls/hr Documented By: DEMETRICE Lorazepam (Lorazepam 2 Mg/1 Ml Vial) 1 mg IV NOW STA; Protocol Stop: 03/02/22 19:15 Last Admin: 03/02/22 19:55 Dose: 1 mg Documented By: DEMETRICE Discharge Plan Visit Data Chief Complaint: Weakness ED Provider: Keven Mcdaniels Discharge Problem: Alcohol withdrawal Forms Stand Alone Forms: [facility] Prescriptions Prescriptions: No Action riboflavin (vitamin B2) [Vitamin B-2] 50 mg Tablet 0 mg PO DAILY Rx Instructions: PT DOESN'T KNOW STRENGTH multivitamin with folic acid [Daily-Ifeanyi (with folic acid)] 400 mcg Tablet 1 tab PO QAM Qty: 30 0RF folic acid 1 mg Tablet 1 mg PO QAM Qty: 30 0RF thiamine HCl (vitamin B1) [Vitamin B-1] 100 mg tablet 100 mg PO DAILY Referrals Referrals: Denis Burleson DO [Primary Care Provider] - : Alcohol withdrawal Qualifiers: Complication of substance-induced condition: with unspecified complication Qualified Code(s): F10.939 - Alcohol use, unspecified with withdrawal, unspecified
[2022-03-02 20:00] LABS: Basophils # (auto) 0.04 K/uL (0-0.2); Basophils % (auto) 0.7 %; Eosinophils # (auto) 0.02 K/uL (0-0.50); Eosinophils % (auto) 0.4 %; Hemoglobin 13.1 g/dl (14.0-18.0); Immature Granulocytes # (auto) 0.01 K/uL (0.00-0.02); Immature Granulocytes % (auto) 0.2 %; Lymphocytes # (auto) 0.73 K/uL (1.2-3.4); Lymphocytes % (auto) 12.9 %; Mean Corpuscular Hemoglobin 25.3 pg (25.0-34.0); Mean Corpuscular Volume 79.3 fL (80.0-100.0); Mean Platelet Volume 9.3 fL (9.4-12.4); Monocytes # (auto) 1.14 K/uL (0.24-0.82); Monocytes % (auto) 20.2 %; Neutrophils # (auto) 3.71 K/uL (1.4-6.5); Neutrophils % (auto) 65.6 %; Platelet Count 120 K/uL (130-400); RDW Coefficient of Variation 20.7 % (11.5-14.5); RDW Standard Deviation 58.4 fL (36.4-46.3); Red Blood Count 5.17 M/uL (4.63-6.08); White Blood Count 5.65 K/ul (4.8-10.8)
[2022-03-02 20:19] LABS: Alanine Aminotransferase 25 U/L (7-52); Albumin Globulin Ratio 1.3 (0.9-2); Albumin Level 4.7 gm/dl (3.4-5.0); Alkaline Phosphatase 86 U/L (34-104); Anion Gap 17 (3-11); Aspartate Aminotransferase 54 U/L (13-39); BUN Creatinine Ratio 9.4 (10-20); Bilirubin,Total 1.2 mg/dl (0.2-1.0); Blood Urea Nitrogen 6 mg/dl (6-23); Calcium 9.5 mg/dl (8.5-10.1); Carbon Dioxide 26 mmol/L (21-32); Chloride 90 mmol/L (98-107); Est GFR (Non-African American) 108.7 ml/min; Globulin 3.6 gm/dl (2.5-4.0); Glucose 98 mg/dl (70-99(Fasting)); Lipase 38 U/L (11-82); Potassium 3.2 mmol/L (3.5-5.1); Sodium 133 mmol/L (136-145); Total Protein 8.3 gm/dl (6.0-8.3)
[2022-03-02 20:21] LABS: Anisocytosis Present; Tear Drop Cells 1+
[2022-03-02] MEDS ORDERED: POTASSIUM CHLORIDE CRTAB 20 MEQ TABCR PO STA (20:34)
--- NOTE | 2022-03-02 23:48 | History and Physical Report ---
DATE OF ADMISSION: 03/02/2022. CHIEF COMPLAINT: Alcoholism and weakness. HISTORY OF PRESENT ILLNESS: This is a 56-year-old male with past medical history significant for hypertension, history of old CVA on CAT scan, history of chronic hyponatremia, history of alcoholism, history of esophageal stenosis per records, history of chronic anemia, baseline hemoglobin around 11, history of past tobacco abuse, history of ambulatory dysfunction, medical noncompliance, who lives in an apartment, comes with ambulatory dysfunction.. The patient says he did not drink for the last 3 days and before that he was drinking 4-5 beers per day and they were big bottles. Today, he was feeling very weak and could not walk. He does not think he can go back to the apartment. He seems to be tremulous in the ER. He received Ativan and is okay now. He is very hard of hearing,wrote on the paper for getting answers from him. Says he is swallowing okay, though esophageal is still narrow as per patient. He says he has some headache, felt feverish, has some nausea, some cough. Vision is okay. Denies any chest pain, no shortness of breath, no abdominal pain or back pain. Normal bowel and bladder movements. ALLERGIES: HYDRALAZINE, PENICILLIN. PAST MEDICAL HISTORY: As mentioned above. PAST SURGICAL HISTORY: EGDs, hip surgery. FAMILY HISTORY: Significant for no family history on file. SOCIAL HISTORY: Alcoholism. No drug use. REVIEW OF SYSTEMS: As per HPI. Rest of the review of systems negative. MEDICATIONS: Last admission, he was discharged on hydroxyzine 25 mg p.o. b.i.d. p.r.n. for itching, magnesium oxide 400 mg p.o. b.i.d., folic acid 1 mg p.o. a.m., vitamin D 1000 units p.o. daily, Excedrin 1 tablet p.o. b.i.d. p.r.n., multivitamins 1 tablet p.o. a.m., thiamine 100 mg p.o. daily, amlodipine 5 mg p.o. daily. PHYSICAL EXAMINATION: GENERAL: The patient is alert and awake, hard of hearing. VITAL SIGNS: Temperature 36.8, pulse 96, respiratory rate 15, blood pressure 169/116, oxygen 97% on room air. HEENT: Pupils equal, round and reactive to light. Oral mucosa dry. NECK: No JVD, no neck masses. CARDIOVASCULAR: S1 and S2 heard. Regular rate and rhythm. No murmur, no gallop. RESPIRATORY SYSTEM: Normal AP diameter. No accessory muscle use. No wheezing or crackles. ABDOMEN: Soft, bowel sounds present, nontender, no distention. CENTRAL NERVOUS SYSTEM: Alert and awake, hard of hearing, answers simple questions. Speech is clear. No facial droop. Insight is okay. Moves extremities. EXTREMITIES: No edema, no erythema. LABORATORY DATA: WBC 5.6, hemoglobin 13.1, hematocrit 44, platelets 120. Sodium 133, potassium 3.2, chloride 90, CO2 of 26, BUN 6, creatinine 0.6, serum glucose 98, calcium 9.5, total bilirubin 1.2, AST 54, ALT 25, alkaline phosphatase 86, lipase 38. Ethyl alcohol less than 10. SARS-CoV-2 rapid test negative. ASSESSMENT AND PLAN: This is a 56-year-old male with history of alcoholism, comes with alcoholism and falls and weakness. 1. Alcoholism: We will monitor for withdrawal. We will place him on gabapentin protocol with IV Ativan p.r.n., banana bag, p.o. thiamine, and folic acid. Monitor in the med-telemetry. 2. Weakness and history of ambulatory dysfunction mostly from alcoholism: Physical therapy and occupational therapy when stable, patient may need placement. 3. History of hypertension: Currently he is in withdrawal. Place on clonidine p.r.n. Supposed to be on amlodipine, seems to be noncompliant. 4. History of hyponatremia: Used to be on salt tablets in the past. He is getting fluids. We will follow the repeat laboratories in the a.m. 5. History of hypomagnesemia: We will follow the laboratories. 6. History of esophageal stenosis: We will place him on chopped soft diet. 7. History of tobacco abuse. 8. Chronic anemia: Hemoglobin 13, we will follow. 9. Thrombocytopenia: Platelets of 120 from alcoholism. It was 270 on last admission, we will follow the repeat laboratories. 10. Deep venous thrombosis prophylaxis: Place on Lovenox. Monitor the platelets. DISPOSITION: Admit to med-tele. PT/OT prior to discharge. Social service to help with discharge planning. Level 1, full code. Job ID: [id number] [facility]
[2022-03-03] MEDS ORDERED: GABAPENTIN 1200MG ALCOHOL WITHDRAWAL LOAD PO STA (00:23)
[2022-03-03] MEDS ORDERED: POLYETHYLENE (MIRALAX) 17 GM PACK PO PRN (00:23)
[2022-03-03] MEDS ORDERED: LORazepam 2 MG in SYRINGE 1 ML IV PRN (00:23)
[2022-03-03] MEDS ORDERED: LORazepam 3 MG in SYRINGE 1.5 ML IV PRN (00:23)
[2022-03-03] MEDS ORDERED: ONDANSETRON INJ 2 MG/ML 2 ML VIAL IV PRN (00:23)
[2022-03-03] MEDS ORDERED: SODIUM CHLORIDE 0.9% 1000ML 1,000 ML IV SCH (00:23)
[2022-03-03] MEDS ORDERED: Ativan IV Alcohol Withdrawal--Active Protocol IV PRN (00:23)
[2022-03-03] MEDS ORDERED: LORazepam 1 MG in SYRINGE 0.5 ML IV PRN (00:23)
[2022-03-03] MEDS ORDERED: GABAPENTIN 600 MG TAB PO ONE (00:23)
[2022-03-03] MEDS ORDERED: NITROGLYCERIN SL 0.4 MG/TAB TAB SL PRN (00:23)
[2022-03-03 00:46] LABS: Magnesium 1.5 mg/dl (1.7-2.4)
[2022-03-03] MEDS ORDERED: MULTI-VITAMIN INFUSION 10 ML, THIAMINE HCL 100 MG, FOLIC ACID 1 MG in SODIUM CHLORIDE 0... IV ONE (01:00)
[2022-03-03] MEDS: FOLIC ACID 1 MG TAB PO SCH ×2 (01:09→08:01)
[2022-03-03] MEDS: THIAMINE HCL 100 MG TAB PO SCH ×2 (01:09→08:01)
[2022-03-03] MEDS: cloNIDine HCL 0.1 MG TAB PO PRN (01:27)
[2022-03-03] MEDS: GABAPENTIN 600 MG TAB PO SCH ×3 (05:36→20:10)
[2022-03-03 05:53] LABS: Basophils # (auto) 0.04 K/uL (0-0.2); Basophils % (auto) 0.8 %; Eosinophils # (auto) 0.07 K/uL (0-0.50); Eosinophils % (auto) 1.4 %; Hematocrit (blood only) 33.6 % (40.1-51.0); Hemoglobin 11.1 g/dl (14.0-18.0); Immature Granulocytes # (auto) 0.01 K/uL (0.00-0.02); Immature Granulocytes % (auto) 0.2 %; Lymphocytes # (auto) 1.43 K/uL (1.2-3.4); Lymphocytes % (auto) 28.7 %; Mean Platelet Volume 9.8 fL (9.4-12.4); Monocytes # (auto) 1.03 K/uL (0.24-0.82); Monocytes % (auto) 20.6 %; Neutrophils # (auto) 2.41 K/uL (1.4-6.5); Neutrophils % (auto) 48.3 %; Platelet Count 100 K/uL (130-400); White Blood Count 4.99 K/ul (4.8-10.8)
[2022-03-03 06:22] LABS: Anisocytosis Present; Mean Corpuscular Hemoglobin 25.4 pg (25.0-34.0); Mean Corpuscular Volume 76.9 fL (80.0-100.0); RDW Coefficient of Variation 20.2 % (11.5-14.5); RDW Standard Deviation 56.1 fL (36.4-46.3); Red Blood Count 4.37 M/uL (4.63-6.08)
[2022-03-03 06:23] LABS: BUN Creatinine Ratio 12.7 (10-20); Calcium 8.2 mg/dl (8.5-10.1); Creatinine Clr Calc Pharmacy 141.1 ml/min; Est GFR (African American) 134.1 ml/min; Est GFR (Non-African American) 115.7 ml/min; Potassium 3.1 mmol/L (3.5-5.1)
[2022-03-03] MEDS ORDERED: POTASSIUM CHLORIDE 20 MEQ/15 ML UDC PO STA (06:50)
[2022-03-03] MEDS: POTASSIUM CHLORIDE / WTR 10 MEQ/100 ML PLCT IV SCH ×2 (08:00→09:45)
[2022-03-03] MEDS: ENOXAPARIN INJ 40 MG/0.4 ML SYR SQ SCH (08:00)
[2022-03-03] MEDS: MAGNESIUM SULFATE / D5W 1 GM/100 ML BAG IV SCH ×2 (11:42→13:42)
--- NOTE | 2022-03-03 12:14 | Hospitalist Progress Note ---
Date of Service March 03, 2022 Assessment & Plan (1) Alcohol intoxication: (2) Hyponatremia: Plan This is a 56-year-old male with history of alcoholism, history of hyponatremia, recurrent admissions for alcoholism, some ambulatory dysfunction, who presents with alcoholism and ambulatory dysfunction. 1. Alcoholism: Continue AWSS protocol, on gabapentin taper with IV Ativan p.r.n.On thiamine, folate. Monitor closely for withdrawals. 2. Ambulatory dysfunction, h/o falls, secondary to above: PT/OT eval. patient had recent extensive work up recently and was seen by neuro and Dr Lucio. 3. Hyponatremia:mild, stable, at 134 4. Hypokalemia: repleted, recheck in am 5. Hypertension: non compliant on amlodipine- currently on clonidine prn for withdrawal- will monitor 6. Esophageal stenosis: Needs to be on chopped soft diet. 7. Chronic anemia: Hemoglobin relatively stable 8. Hypomagnesemia- s/p repletion. Recheck in am 9. History of tobacco abuse 10. Thrombocytopenia- mild, will monitor DVT prophylaxis: sq lovenox Dispo- On AWSS protocol. Needs PT/OT eval and may be SNF. Admission and Anticipated Discharge Date Admission Date: March 02, 2022 Subjective No new issues. Denies any withdrawal symptoms. States he feels weak in the legs as before. I believe he minimizes his alcohol intake when being asked. Again discussed about the need to stop drinking completely. Physical Exam Physical Exam: General: Lying comfortably in bed, not in distress, on room air HEENT: EOMI, JORGE A, MMM Chest: Clear breath sounds bilaterally, no wheezes or crackles CVS: Regular rate and rhythm, normal heart sounds, no murmur Abdomen: Soft, non tender, not distended, normal bowel sounds Neuro: Awake, alert, oriented, conversing well, non focal Extremities: No cyanosis, clubbing or edema Results & Data Results & Data ([facility]) Vital Signs (Past 12 Hours) Vital Signs Temp Pulse Pulse Pulse Resp BP BP 03/03/22 10:56 36.9 C 70 16 144/87 H 03/03/22 07:26 36.9 C 80 18 151/94 H 03/03/22 07:13 88 03/03/22 05:34 36.9 C 90 16 114/84 03/03/22 00:09 119 H 03/03/22 02:11 37.5 C 106 H 18 108/73 03/03/22 00:25 37 C 116 H 24 176/117 H Pulse Ox O2 Del Method 03/03/22 10:56 93 Room Air 03/03/22 07:26 92 Room Air 03/03/22 07:13 03/03/22 05:34 93 Room Air 03/03/22 00:09 03/03/22 02:11 96 03/03/22 00:25 95 Room Air Laboratory Results Short CBC 03/02/22 03/03/22 Range/Units 19:48 05:22 WBC 5.65 4.99 (4.8-10.8) K/ul Hgb 13.1 L 11.1 L (14.0-18.0) g/dl Hct 41.0 33.6 L (40.1-51.0) % Plt Count 120 L 100 L (130-400) K/uL BMP 03/02/22 03/03/22 19:48 05:22 Sodium 133 L 134 L Potassium 3.2 L 3.1 L Chloride 90 L 101 Carbon Dioxide 26 23 BUN 6 7 Creatinine 0.64 0.55 L Glucose 98 85 Calcium 9.5 8.2 L Liver Function 03/02/22 Range/Units 19:48 Total Bilirubin 1.2 H (0.2-1.0) mg/dl AST 54 H (13-39) U/L ALT 25 (7-52) U/L Alkaline Phosphatase 86 (34-104) U/L Albumin 4.7 (3.4-5.0) gm/dl Medications Administered Current Inpatient Medications Acetaminophen (Acetaminophen 325 Mg Tab) 650 mg PO Q4H PRN PRN Reason: Pain or Fever Stop: 04/02/22 00:22 Clonidine HCl (Clonidine Hcl 0.1 Mg Tab) 0.1 mg PO Q4H PRN PRN Reason: Hypertension Stop: 04/02/22 00:22 Last Admin: 03/03/22 01:27 Dose: 0.1 mg Enoxaparin Sodium (Enoxaparin Inj 40 Mg/0.4 Ml Syr) 40 mg SQ Q24H [facility] Stop: 04/02/22 08:59 Last Admin: 03/03/22 08:00 Dose: 40 mg Folic Acid (Folic Acid 1 Mg Tab) 1 mg PO QAM [facility] Stop: 04/02/22 00:22 Last Admin: 03/03/22 08:01 Dose: 1 mg Gabapentin (Gabapentin 600 Mg Tab) 600 mg PO Q8H [facility] Stop: 03/04/22 12:01 Gabapentin (Gabapentin 600 Mg Tab) 600 mg PO Q12H [facility] Stop: 03/05/22 10:01 Gabapentin (Gabapentin 600 Mg Tab) 600 mg PO Q24H [facility] Stop: 03/06/22 10:01 Sodium Chloride (Nss 1000ml) 1,000 mls @ 75 mls/hr IV .[id number] [facility] Stop: 03/03/22 13:42 Last Admin: 03/03/22 03:20 Dose: 75 mls/hr Lorazepam 1 mg/ Syringe 1 mls @ 2 mls/min IV UD PRN; Protocol PRN Reason: EtOH Withdrawal AWSS Score 6,7 Stop: 04/02/22 00:22 Lorazepam 2 mg/ Syringe 2 mls @ 2 mls/min IV UD PRN; Protocol PRN Reason: EtOH Withdrawal AWSS Score 8,9 Stop: 04/02/22 00:22 Last Admin: 03/03/22 01:18 Dose: 2 mls/min Lorazepam 3 mg/ Syringe 3 mls @ 2 mls/min IV ONCE PRN; Protocol PRN Reason: EtOH Withdrawal AWSS Score 10 & above Nitroglycerin (Nitroglycerin Sl 0.4 Mg/Tab Tab) 0.4 mg SL UD PRN PRN Reason: Chest Pain Stop: 04/02/22 00:22 Ondansetron HCl (Ondansetron Inj 2 Mg/Ml 2 Ml Vial) 4 mg IV Q6H PRN PRN Reason: Nausea Stop: 04/02/22 00:22 Polyethylene Glycol (Polyethylene (Miralax) 17 Gm Pack) 17 gm PO DAILY PRN PRN Reason: Constipation Stop: 04/02/22 00:22 Thiamine HCl (Thiamine Hcl 100 Mg Tab) [facility] Stop: 04/02/22 00:22 Last Admin: 03/03/22 08:01 Dose: 100 mg (1) Alcohol intoxication Complication of substance-induced condition: uncomplicated Qualified Code(s): F10.920 - Alcohol use, unspecified with intoxication, uncomplicated
--- NOTE | 2022-03-03 12:41 | Electrocardiogram Report ---
Test Reason : Blood Pressure : / mmHG Vent. Rate : 104 BPM Atrial Rate : 107 BPM P-R Int : 172 ms QRS Dur : 078 ms QT Int : 360 ms P-R-T Axes : 075 033 078 degrees QTc Int : 473 ms Poor data quality, interpretation may be adversely affected Sinus tachycardia Minimal voltage criteria for LVH, may be normal variant Septal infarct (cited on or before 11-FEB-2022) Abnormal ECG When compared with ECG of 11-FEB-2022 17:20, No significant change was found Confirmed by Malvin Hector [id number]) on 03/03/2022 12:40:32 PM Referred By: REFERRED SELF Confirmed By:Malvin Hector
[2022-03-03] MEDS: ACETAMINOPHEN 325 MG TAB PO PRN (20:10)
[2022-03-03] MEDS ORDERED: LORazepam 0.5 MG TAB PO PRN (22:37)
[2022-03-04] MEDS: GABAPENTIN 600 MG TAB PO SCH ×3 (04:31→20:06)
[2022-03-04] MEDS: cloNIDine HCL 0.1 MG TAB PO PRN (04:38)
[2022-03-04] MEDS: ACETAMINOPHEN 325 MG TAB PO PRN ×2 (04:38→10:02)
[2022-03-04 06:37] LABS: Hematocrit (blood only) 34.9 % (40.1-51.0); Hemoglobin 11.2 g/dl (14.0-18.0); Mean Corpuscular Hemoglobin 25.7 pg (25.0-34.0); Mean Corpuscular Hgb Conc 32.1 g/dL (32.0-36.0); Platelet Count 109 K/uL (130-400); RDW Coefficient of Variation 19.5 % (11.5-14.5); Red Blood Count 4.36 M/uL (4.63-6.08); White Blood Count 6.94 K/ul (4.8-10.8)
[2022-03-04 07:25] LABS: Calcium 8.3 mg/dl (8.5-10.1); Creatinine Clr Calc Pharmacy 133.7 ml/min; Est GFR (African American) 132.1 ml/min; Magnesium 1.4 mg/dl (1.7-2.4); Phosphorus 2.2 mg/dl (2.5-4.9); Potassium 2.7 mmol/L (3.5-5.1)
[2022-03-04 07:27] LABS: Ferritin 25.1 ng/ml (8-388)
[2022-03-04] MEDS: ENOXAPARIN INJ 40 MG/0.4 ML SYR SQ SCH (07:34)
[2022-03-04] MEDS: THIAMINE HCL 100 MG TAB PO SCH (07:35)
[2022-03-04] MEDS: FOLIC ACID 1 MG TAB PO SCH (07:35)
[2022-03-04] MEDS ORDERED: POTASSIUM CHLORIDE CRTAB 20 MEQ TABCR PO SCH (09:00)
[2022-03-04] MEDS: SODIUM CHLORIDE 1 GM TABLET PO SCH ×2 (09:05→20:00)
[2022-03-04] MEDS: MAGNESIUM OXIDE 400 MG TAB PO SCH ×2 (09:05→20:00)
[2022-03-04] MEDS: POT PHOSPHATE MONOBASIC W/ SOD TAB PO SCH ×4 (09:28→20:00)
--- NOTE | 2022-03-04 12:02 | Hospitalist Progress Note ---
Date of Service March 04, 2022 Assessment & Plan (1) Alcohol withdrawal: (2) Hyponatremia: (3) Hypokalemia: (4) Hypomagnesemia: (5) Hypophosphatemia: Plan This is a 56-year-old male with history of alcoholism, history of hyponatremia, recurrent admissions for alcoholism, some ambulatory dysfunction, who presents with alcoholism and ambulatory dysfunction. 1. Alcoholism with alcohol withdrawal: Continue AWSS protocol, on gabapentin taper with IV Ativan p.r.n.On thiamine, folate. Monitor closely for withdrawals. 2. Ambulatory dysfunction, h/o falls, secondary to above: PT/OT eval. Patient had recent extensive work up recently and was seen by neuro and Dr Lucio. 3. Hyponatremia: 134->126. Will have fluid restriction, liberalize diet, salt tablets. Will recheck later today. 4. Hypokalemia:repleted iv and po recheck later today. 5. Hypophosphatemia- repleted, recheck in am 5. Hypertension: non compliant on amlodipine- currently on clonidine prn for withdrawal- will monitor. If stays hypertensive, will resume norvasc. 6. Esophageal stenosis: Needs to be on chopped soft diet. 7. Chronic anemia: Hemoglobin relatively stable 8. Hypomagnesemia- repleted. Recheck in am 9. History of tobacco abuse 10. Thrombocytopenia- mild, will monitor DVT prophylaxis: sq lovenox Dispo- On AWSS protocol, multiple electrolyte abnormalities being addressed. Needs PT/OT eval and may be SNF. [facility]- informed CM. Admission and Anticipated Discharge Date Admission Date: March 02, 2022 Subjective States his walking is worse today. He states he wants to go to [facility] rather than going back to his apartment. He is coming to realize that his drinking might be a problem to his balance issues. No other issues. Physical Exam Physical Exam: General: Sitting comfortably in bed, not in distress, on room air HEENT: EOMI, JORGE A, MMM Chest: Clear breath sounds bilaterally, no wheezes or crackles CVS: Regular rate and rhythm, normal heart sounds, no murmur Abdomen: Soft, non tender, not distended, normal bowel sounds Neuro: Awake, alert, oriented, conversing well, non focal Extremities: No edema. Mildl tremors. Results & Data Results & Data ([facility]) Vital Signs (Past 12 Hours) Vital Signs Temp Pulse Pulse Resp BP Pulse Ox O2 Del Method 03/04/22 11:14 36.9 C 75 18 145/87 H 96 Room Air 03/04/22 07:45 36.5 C 78 20 149/91 H 96 Room Air 03/04/22 07:16 83 03/04/22 05:42 87 157/97 H 03/04/22 04:20 36.5 C 78 20 188/99 H 96 Room Air Laboratory Results Short CBC 03/04/22 Range/Units 06:23 WBC 6.94 (4.8-10.8) K/ul Hgb 11.2 L (14.0-18.0) g/dl Hct 34.9 L (40.1-51.0) % Plt Count 109 L (130-400) K/uL BMP 03/04/22 06:23 Sodium 126 L Potassium 2.7 L Chloride 94 L Carbon Dioxide 20 L BUN 4 L Creatinine 0.57 L Glucose 119 H Calcium 8.3 L Medications Administered Current Inpatient Medications Acetaminophen (Acetaminophen 325 Mg Tab) 650 mg PO Q4H PRN PRN Reason: Pain or Fever Stop: 04/02/22 00:22 Last Admin: 03/04/22 10:02 Dose: 650 mg Clonidine HCl (Clonidine Hcl 0.1 Mg Tab) 0.1 mg PO Q4H PRN PRN Reason: Hypertension Stop: 04/02/22 00:22 Last Admin: 03/04/22 04:38 Dose: 0.1 mg Enoxaparin Sodium (Enoxaparin Inj 40 Mg/0.4 Ml Syr) 40 mg SQ Q24H [facility] Stop: 04/02/22 08:59 Last Admin: 03/04/22 07:34 Dose: 40 mg Folic Acid (Folic Acid 1 Mg Tab) 1 mg PO QAM [facility] Stop: 04/02/22 00:22 Last Admin: 03/04/22 07:35 Dose: 1 mg Gabapentin (Gabapentin 600 Mg Tab) 600 mg PO Q8H [facility] Stop: 03/04/22 12:01 Last Admin: 03/04/22 04:31 Dose: 600 mg Gabapentin (Gabapentin 600 Mg Tab) 600 mg PO Q12H [facility] Stop: 03/05/22 10:01 Gabapentin (Gabapentin 600 Mg Tab) 600 mg PO Q24H [facility] Stop: 03/06/22 10:01 Lorazepam 1 mg/ Syringe 1 mls @ 2 mls/min IV UD PRN; Protocol PRN Reason: EtOH Withdrawal AWSS Score 6,7 Stop: 04/02/22 00:22 Lorazepam 2 mg/ Syringe 2 mls @ 2 mls/min IV UD PRN; Protocol PRN Reason: EtOH Withdrawal AWSS Score 8,9 Stop: 04/02/22 00:22 Last Admin: 03/03/22 01:18 Dose: 2 mls/min Lorazepam 3 mg/ Syringe 3 mls @ 2 mls/min IV ONCE PRN; Protocol PRN Reason: EtOH Withdrawal AWSS Score 10 & above Lorazepam (Lorazepam 0.5 Mg Tab) 0.5 mg PO HS PRN PRN Reason: Anxiety/Insomnia Stop: 04/02/22 22:36 Last Admin: 03/04/22 00:29 Dose: 0.5 mg Magnesium Oxide (Magnesium Oxide 400 Mg Tab) 400 mg PO BID [facility] Stop: 04/03/22 08:59 Last Admin: 03/04/22 09:05 Dose: 400 mg Nitroglycerin (Nitroglycerin Sl 0.4 Mg/Tab Tab) 0.4 mg SL UD PRN PRN Reason: Chest Pain Stop: 04/02/22 00:22 Ondansetron HCl (Ondansetron Inj 2 Mg/Ml 2 Ml Vial) 4 mg IV Q6H PRN PRN Reason: Nausea Stop: 04/02/22 00:22 Polyethylene Glycol (Polyethylene (Miralax) 17 Gm Pack) 17 gm PO DAILY PRN PRN Reason: Constipation Stop: 04/02/22 00:22 Potassium Chloride (Potassium Chloride Crtab 20 Meq Tabcr) 40 meq PO BID [facility] Stop: 03/05/22 06:00 Last Admin: 03/04/22 09:04 Dose: 40 meq Potassium Phosphate (Pot Phosphate Monobasic W/ Sod Tab) 2 tab PO QID [facility] Stop: 04/05/22 08:59 Last Admin: 03/04/22 09:28 Dose: 2 tab Sodium Chloride (Sodium Chloride 1 Gm Tablet) 1 gm PO BID [facility] Stop: 04/03/22 08:59 Last Admin: 03/04/22 09:05 Dose: 1 gm Thiamine HCl (Thiamine Hcl 100 Mg Tab) 100 mg PO QAM [facility] Stop: 04/02/22 00:22 Last Admin: 03/04/22 07:35 Dose: 100 mg (1) Alcohol withdrawal Complication of substance-induced condition: with unspecified complication Qualified Code(s): F10.939 - Alcohol use, unspecified with withdrawal, unspecified
[2022-03-04] MEDS ORDERED: MAGNESIUM SULFATE / D5W 1 GM/100 ML BAG IV ONE (12:06)
[2022-03-04 15:01] LABS: BUN Creatinine Ratio 5.3 (10-20); Calcium 8.2 mg/dl (8.5-10.1); Creatinine Clr Calc Pharmacy 133.7 ml/min; Est GFR (African American) 132.1 ml/min; Potassium 3.2 mmol/L (3.5-5.1)
[2022-03-05 07:21] LABS: Bilirubin,Total 0.6 mg/dl (0.2-1.0); Creatinine Clr Calc Pharmacy 140.4 ml/min; Est GFR (African American) 132.1 ml/min; Hematocrit (blood only) 37.4 % (40.1-51.0); Hemoglobin 12.3 g/dl (14.0-18.0); Magnesium 1.7 mg/dl (1.7-2.4); Mean Corpuscular Hemoglobin 25.9 pg (25.0-34.0); Mean Corpuscular Hgb Conc 32.9 g/dL (32.0-36.0); Mean Corpuscular Volume 78.9 fL (80.0-100.0); Mean Platelet Volume 10.6 fL (9.4-12.4); Phosphorus 4.1 mg/dl (2.5-4.9); Platelet Count 148 K/uL (130-400); Potassium 3.2 mmol/L (3.5-5.1); RDW Standard Deviation 56.3 fL (36.4-46.3); Red Blood Count 4.74 M/uL (4.63-6.08); Total Protein 7.5 gm/dl (6.0-8.3); White Blood Count 6.19 K/ul (4.8-10.8)
[2022-03-05 07:56] LABS: Albumin Globulin Ratio 1.3 (0.9-2); Albumin Level 4.2 gm/dl (3.4-5.0); Globulin 3.3 gm/dl (2.5-4.0)
[2022-03-05] MEDS ORDERED: POTASSIUM CHLORIDE CRTAB 20 MEQ TABCR PO SCH (09:00)
[2022-03-05] MEDS: MAGNESIUM OXIDE 400 MG TAB PO SCH ×2 (09:48→21:20)
[2022-03-05] MEDS: POT PHOSPHATE MONOBASIC W/ SOD TAB PO SCH ×4 (09:48→21:19)
[2022-03-05] MEDS: FOLIC ACID 1 MG TAB PO SCH (09:49)
[2022-03-05] MEDS: ENOXAPARIN INJ 40 MG/0.4 ML SYR SQ SCH (09:49)
[2022-03-05] MEDS: SODIUM CHLORIDE 1 GM TABLET PO SCH ×2 (09:49→21:22)
[2022-03-05] MEDS: GABAPENTIN 600 MG TAB PO SCH (09:49)
[2022-03-05] MEDS: THIAMINE HCL 100 MG TAB PO SCH (09:49)
[2022-03-05] MEDS: MAGNESIUM SULFATE / D5W 1 GM/100 ML BAG IV SCH ×4 (11:47→19:39)
--- NOTE | 2022-03-05 11:53 | Hospitalist Progress Note ---
Date of Service March 05, 2022 Assessment & Plan (1) Alcohol withdrawal: (2) Hyponatremia: (3) Hypokalemia: (4) Hypomagnesemia: (5) Hypophosphatemia: Plan This is a 56-year-old male with history of alcoholism, history of hyponatremia, recurrent admissions for alcoholism, some ambulatory dysfunction, who presents with alcoholism and ambulatory dysfunction. 1. Alcoholism with alcohol withdrawal: no current symptoms of withdrawal. On tapering dose of gabapentin. 2. Ambulatory dysfunction, h/o falls, secondary to above: PT/OT eval. [facility] 3. Hyponatremia, likely beer potomania: 134->126 > 133. improvement on fluid restriction and salt tablets. Monitor BMP daily. 4. Hypokalemia:repleted. check in am 5. Hypophosphatemia- repleted, recheck in am 5. Hypertension: Started on nifedipine 6. Esophageal stenosis: Needs to be on chopped soft diet. 7. Chronic anemia: Hemoglobin relatively stable 8. Hypomagnesemia- repleted. 9. History of tobacco abuse 10. Thrombocytopenia- mild, will monitor DVT prophylaxis: sq lovenox Dispo- On AWSS protocol, multiple electrolyte abnormalities being addressed. Needs PT/OT eval and may be SNF. [facility]- informed CM. Admission and Anticipated Discharge Date Admission Date: March 02, 2022 Subjective Patient seen and examined at bedside. He continues to feel weak; unable to ambulate by himself. He was able to get up with a walker and walk few steps with me but got exhausted. He lives alone and is concerned that he does not have anyone to help him. He wants to go to [facility]. Review of Systems Review of Systems: All systems reviewed & are unremarkable except as noted in Subjective Physical Exam Physical Exam: Constitutional: WD/WN, vitals as above, NAD, sitting up in bed, pleasant, conversing easily Head: Normocephalic, Atraumatic Eyes: PERRL, conjunctivae normal, anicteric sclerae ENMT: external ear and nose normal, oropharynx normal Neck: trachea midline, no thyromegaly normal visual inspection Respiratory: normal respiratory effort, lungs clear to auscultation, no wheeze, rales, rhonchi. Normal insp/exp effort, no accessory muscle use Cardiovascular: RRR, no murmur, no edema Vessels: no JVD or carotid bruit Chest: normal inspection of chest Abdomen: normal bowel sounds, soft, nontender, no hepatosplenomegaly Musculoskeletal: no cyanosis or clubbing, extremities motor strength 5/5 Skin: no rashes, warm and dry normal turgor Neurologic: PERRL, EOMI, accommodation nl, no face palsy, no dysarthria CN's II- XI intact bilaterally and moves all extremities Psychiatric: A+Ox3, euthymic affect Lymphatic: no cervical or axillary lymphadenopathy : deferred Results & Data Results & Data ([facility]) Vital Signs (Past 12 Hours) Vital Signs Temp Pulse Pulse Pulse Resp BP BP 03/05/22 08:05 77 03/05/22 08:01 36.5 C 92 H 20 176/98 H 03/05/22 03:58 70 144/93 H 03/05/22 03:41 36.9 C 85 20 156/111 H Pulse Ox O2 Del Method 03/05/22 08:05 03/05/22 08:01 97 Room Air 03/05/22 03:58 03/05/22 03:41 97 Room Air COVID-19 Results Results COVID-19 Adm Lab Results: RBC 4.74 M/uL (4.63-6.08) 03/05/22 WBC 6.19 K/ul (4.8-10.8) 03/05/22 Hgb 12.3 g/dl (14.0-18.0) L 03/05/22 Hct 37.4 % (40.1-51.0) L 03/05/22 Plt Count 148 K/uL (130-400) 03/05/22 Neutrophils (%) (Auto) 48.3 % 03/03/22 Lymphocytes (%) (Auto) 28.7 % 03/03/22 Monocytes # (Auto) 1.03 K/uL (0.24-0.82) H 03/03/22 Eosinophils # (Auto) 0.07 K/uL (0-0.50) 03/03/22 Immature Granulocyte % (Auto) 0.2 % 03/03/22 Neutrophils # (Auto) 2.41 K/uL (1.4-6.5) 03/03/22 Lymphocytes # (Auto) 1.43 K/uL (1.2-3.4) 03/03/22 Monocytes # (Auto) 1.03 K/uL (0.24-0.82) H 03/03/22 Eosinophils # (Auto) 0.07 K/uL (0-0.50) 03/03/22 Basophils # (Auto) 0.04 K/uL (0-0.2) 03/03/22 Immature Granulocyte # (Auto) 0.01 K/uL (0.00-0.02) 2 Anisocytosis Present 03/03/22 Tear Drop Cells 1+ 03/02/22 Na 133 mmol/L (136-145) L 03/05/22 K 3.2 mmol/L (3.5-5.1) L 03/05/22 Cl 96 mmol/L (98-107) L 03/05/22 CO2 28 mmol/L (21-32) 03/05/22 Anion Gap 9 (3-11) 03/05/22 BUN 4 mg/dl (6-23) L 03/05/22 Creatinine 0.57 mg/dl (0.6-1.4) L 03/05/22 BUN/Creatinine Ratio 7.0 (10-20) L 03/05/22 Glucose Level 102 mg/dl (70-99(Fasting)) H 03/05/22 Ca 9.0 mg/dl (8.5-10.1) 03/05/22 Phosphorus Level 4.1 mg/dl (2.5-4.9) 03/05/22 Total Bilirubin 0.6 mg/dl (0.2-1.0) 03/05/22 AST/SGOT 32 U/L (13-39) 03/05/22 ALT/SGPT 18 U/L (7-52) 03/05/22 Alkaline Phosphatase 73 U/L (34-104) 03/05/22 Total Protein 7.5 gm/dl (6.0-8.3) 03/05/22 Albumin 4.2 gm/dl (3.4-5.0) 03/05/22 Globulin 3.3 gm/dl (2.5-4.0) 03/05/22 Albumin/Globulin Ratio 1.3 (0.9-2) 03/05/22 Ferritin 25.1 ng/ml (8-388) 03/04/22 SARS-CoV-2, RNA, NAAT NEGATIVE (NEGATIVE) 03/02/22 (1) Alcohol withdrawal Complication of substance-induced condition: with unspecified complication Qualified Code(s): F10.939 - Alcohol use, unspecified with withdrawal, unspecified
[2022-03-05] MEDS: NIFEdipine EXTENDED REL 30 MG TABCR PO SCH (13:08)
[2022-03-05] MEDS: ACETAMINOPHEN 325 MG TAB PO PRN (18:16)
[2022-03-05] MEDS: POTASSIUM CHLORIDE CRTAB 20 MEQ TABCR PO SCH (21:21)
[2022-03-06] MEDS: SODIUM CHLORIDE 1 GM TABLET PO SCH ×2 (07:49→20:40)
[2022-03-06] MEDS: FOLIC ACID 1 MG TAB PO SCH (07:49)
[2022-03-06] MEDS: ENOXAPARIN INJ 40 MG/0.4 ML SYR SQ SCH (07:50)
[2022-03-06] MEDS: THIAMINE HCL 100 MG TAB PO SCH (07:51)
[2022-03-06] MEDS: MAGNESIUM OXIDE 400 MG TAB PO SCH ×2 (07:51→20:40)
[2022-03-06] MEDS: NIFEdipine EXTENDED REL 30 MG TABCR PO SCH (07:51)
[2022-03-06] MEDS: POT PHOSPHATE MONOBASIC W/ SOD TAB PO SCH ×4 (07:53→20:40)
[2022-03-06] MEDS: POTASSIUM CHLORIDE CRTAB 20 MEQ TABCR PO SCH ×2 (07:53→20:41)
[2022-03-06] MEDS ORDERED: GABAPENTIN 600 MG TAB PO SCH (10:00)
--- NOTE | 2022-03-06 11:34 | Hospitalist Progress Note ---
Date of Service March 06, 2022 Assessment & Plan (1) Alcohol withdrawal: (2) Hyponatremia: (3) Hypokalemia: (4) Hypomagnesemia: (5) Hypophosphatemia: Plan This is a 56-year-old male with history of alcoholism, history of hyponatremia, recurrent admissions for alcoholism, some ambulatory dysfunction, who presents with alcoholism and ambulatory dysfunction. 1. Alcoholism with alcohol withdrawal: no current symptoms of withdrawal. On tapering dose of gabapentin. 2. Ambulatory dysfunction, h/o falls, secondary to above: PT/OT eval. [facility] need [facility] 3. Hyponatremia, likely beer potomania: 134->126 > 133. improvement on fluid restriction and salt tablets. Monitor BMP daily. 4. Hypokalemia:repleted. check in am 5. Hypophosphatemia- repleted, recheck in am 5. Hypertension: Started on nifedipine this hospitalization. Continue same. We will try titrate dose if needed. 6. Esophageal stenosis: Needs to be on chopped soft diet. 7. Chronic anemia: Hemoglobin relatively stable 8. Hypomagnesemia- repleted. 9. History of tobacco abuse 10. Thrombocytopenia- mild, will monitor DVT prophylaxis: sq lovenox Dispo- On AWSS protocol, multiple electrolyte abnormalities being addressed. Needs PT/OT eval and may be SNF. He would like to go to [facility] to [facility]- Admission and Anticipated Discharge Date Admission Date: March 02, 2022 Subjective Patient seen and examined at bedside. He says he has significantly difficulty walking and need assistive device. He is looking forward to go to rehab. Review of Systems Review of Systems: All systems reviewed & are unremarkable except as noted in Subjective Physical Exam Physical Exam: Constitutional: WD/WN, vitals as above, NAD, sitting up in bed, pleasant, conversing easily Head: Normocephalic, Atraumatic Eyes: PERRL, conjunctivae normal, anicteric sclerae ENMT: external ear and nose normal, oropharynx normal Neck: trachea midline, no thyromegaly normal visual inspection Respiratory: normal respiratory effort, lungs clear to auscultation, no wheeze, rales, rhonchi. Normal insp/exp effort, no accessory muscle use Cardiovascular: RRR, no murmur, no edema Vessels: no JVD or carotid bruit Chest: normal inspection of chest Abdomen: normal bowel sounds, soft, nontender, no hepatosplenomegaly Musculoskeletal: no cyanosis or clubbing, extremities motor strength 5/5 Skin: no rashes, warm and dry normal turgor Neurologic: PERRL, EOMI, accommodation nl, no face palsy, no dysarthria CN's II- XI intact bilaterally and moves all extremities Psychiatric: A+Ox3, euthymic affect Lymphatic: no cervical or axillary lymphadenopathy : deferred Results & Data Results & Data ([facility]) Vital Signs (Past 12 Hours) Vital Signs Temp Pulse Pulse Resp BP Pulse Ox O2 Del Method 03/06/22 07:40 36.9 C 75 18 171/97 H 95 Room Air 03/06/22 07:13 85 03/06/22 06:24 156/95 H 03/06/22 03:00 36.7 C 78 20 162/93 H 98 Room Air COVID-19 Results Results COVID-19 Adm Lab Results: RBC 4.74 M/uL (4.63-6.08) 03/05/22 WBC 6.19 K/ul (4.8-10.8) 03/05/22 Hgb 12.3 g/dl (14.0-18.0) L 03/05/22 Hct 37.4 % (40.1-51.0) L 03/05/22 Plt Count 148 K/uL (130-400) 03/05/22 Neutrophils (%) (Auto) 48.3 % 03/03/22 Lymphocytes (%) (Auto) 28.7 % 03/03/22 Monocytes # (Auto) 1.03 K/uL (0.24-0.82) H 03/03/22 Eosinophils # (Auto) 0.07 K/uL (0-0.50) 03/03/22 Immature Granulocyte % (Auto) 0.2 % 03/03/22 Neutrophils # (Auto) 2.41 K/uL (1.4-6.5) 03/03/22 Lymphocytes # (Auto) 1.43 K/uL (1.2-3.4) 03/03/22 Monocytes # (Auto) 1.03 K/uL (0.24-0.82) H 03/03/22 Eosinophils # (Auto) 0.07 K/uL (0-0.50) 03/03/22 Basophils # (Auto) 0.04 K/uL (0-0.2) 03/03/22 Immature Granulocyte # (Auto) 0.01 K/uL (0.00-0.02) 2 Anisocytosis Present 03/03/22 Tear Drop Cells 1+ 03/02/22 Na 133 mmol/L (136-145) L 03/05/22 K 3.2 mmol/L (3.5-5.1) L 03/05/22 Cl 96 mmol/L (98-107) L 03/05/22 CO2 28 mmol/L (21-32) 03/05/22 Anion Gap 9 (3-11) 03/05/22 BUN 4 mg/dl (6-23) L 03/05/22 Creatinine 0.57 mg/dl (0.6-1.4) L 03/05/22 BUN/Creatinine Ratio 7.0 (10-20) L 03/05/22 Glucose Level 102 mg/dl (70-99(Fasting)) H 03/05/22 Ca 9.0 mg/dl (8.5-10.1) 03/05/22 Phosphorus Level 4.1 mg/dl (2.5-4.9) 03/05/22 Total Bilirubin 0.6 mg/dl (0.2-1.0) 03/05/22 AST/SGOT 32 U/L (13-39) 03/05/22 ALT/SGPT 18 U/L (7-52) 03/05/22 Alkaline Phosphatase 73 U/L (34-104) 03/05/22 Total Protein 7.5 gm/dl (6.0-8.3) 03/05/22 Albumin 4.2 gm/dl (3.4-5.0) 03/05/22 Globulin 3.3 gm/dl (2.5-4.0) 03/05/22 Albumin/Globulin Ratio 1.3 (0.9-2) 03/05/22 Ferritin 25.1 ng/ml (8-388) 03/04/22 SARS-CoV-2, RNA, NAAT NEGATIVE (NEGATIVE) 03/02/22 (1) Alcohol withdrawal Complication of substance-induced condition: with unspecified complication Qualified Code(s): F10.939 - Alcohol use, unspecified with withdrawal, unspecified
[2022-03-06 12:44] LABS: Albumin Globulin Ratio 1.3 (0.9-2); Albumin Level 4.5 gm/dl (3.4-5.0); BUN Creatinine Ratio 8.2 (10-20); Bilirubin,Total 0.6 mg/dl (0.2-1.0); Calcium 9.4 mg/dl (8.5-10.1); Creatinine Clr Calc Pharmacy 109.8 ml/min; Est GFR (African American) 119.3 ml/min; Globulin 3.4 gm/dl (2.5-4.0); Potassium 3.8 mmol/L (3.5-5.1); Total Protein 7.9 gm/dl (6.0-8.3)
[2022-03-06 18:25] LABS: BUN Creatinine Ratio 10.4 (10-20); Calcium 9.4 mg/dl (8.5-10.1); Est GFR (African American) 116.8 ml/min; Est GFR (Non-African American) 100.7 ml/min; Potassium 3.9 mmol/L (3.5-5.1)
[2022-03-06] MEDS: ACETAMINOPHEN 325 MG TAB PO PRN (23:30)
[2022-03-07 07:24] LABS: BUN Creatinine Ratio 10.3 (10-20); Creatinine Clr Calc Pharmacy 139.3 ml/min; Est GFR (African American) 131.2 ml/min; Est GFR (Non-African American) 113.2 ml/min; Potassium 4.2 mmol/L (3.5-5.1)
[2022-03-07] MEDS: ACETAMINOPHEN 325 MG TAB PO PRN ×2 (09:19→20:08)
[2022-03-07] MEDS: THIAMINE HCL 100 MG TAB PO SCH (09:22)
[2022-03-07] MEDS: FOLIC ACID 1 MG TAB PO SCH (09:23)
[2022-03-07] MEDS: SODIUM CHLORIDE 1 GM TABLET PO SCH ×2 (09:24→20:00)
[2022-03-07] MEDS: POTASSIUM CHLORIDE CRTAB 20 MEQ TABCR PO SCH ×2 (09:26→20:00)
[2022-03-07] MEDS: MAGNESIUM OXIDE 400 MG TAB PO SCH ×2 (09:28→20:00)
[2022-03-07] MEDS: ENOXAPARIN INJ 40 MG/0.4 ML SYR SQ SCH (09:30)
[2022-03-07] MEDS: POT PHOSPHATE MONOBASIC W/ SOD TAB PO SCH ×4 (10:00→20:00)
[2022-03-07] MEDS: NIFEdipine EXTENDED REL 30 MG TABCR PO SCH (12:00)
[2022-03-07] MEDS: amLODIPine BESYLATE 5 MG TAB PO SCH (12:20)
--- NOTE | 2022-03-07 14:00 | Hospitalist Progress Note ---
Date of Service March 07, 2022 Assessment & Plan (1) Alcohol withdrawal: (2) Hyponatremia: (3) Hypokalemia: (4) Hypomagnesemia: (5) Hypophosphatemia: Plan This is a 56-year-old male with history of alcoholism, history of hyponatremia, recurrent admissions for alcoholism, some ambulatory dysfunction, who presents with alcoholism and ambulatory dysfunction. 1. Alcoholism with alcohol withdrawal: no current symptoms of withdrawal. Finished tapering dose of gabapentin. 2. Ambulatory dysfunction, h/o falls, secondary to above:PT recommended subacute rehab. Awaiting OT assessment. 3. Hyponatremia, likely beer potomania: 134->126 > 133> 128. Increase fluid restriction to 1 L 4. Hypokalemia:repleted. check in am 5. Hypophosphatemia- repleted, recheck in am 5. Hypertension:Started on amlodipine; titrate as necessary. 6. Esophageal stenosis: Needs to be on chopped soft diet. 7. Chronic anemia: Hemoglobin relatively stable 8. Hypomagnesemia- repleted. 9. History of tobacco abuse 10. Thrombocytopenia- mild, will monitor DVT prophylaxis: sq lovenox Dispo-multiple electrolyte abnormalities being addressed. Needs PT/OT eval and may be SNF. [facility]- Admission and Anticipated Discharge Date Admission Date: March 02, 2022 Subjective Patient is sitting down on the bed; not in any acute distress. He continues to reiterate his wish to go to rehab as he is not able to care for himself. Review of Systems Review of Systems: All systems reviewed & are unremarkable except as noted in Subjective Physical Exam Physical Exam: Constitutional: WD/WN, vitals as above, NAD, sitting up in bed, pleasant, conversing easily Head: Normocephalic, Atraumatic Eyes: PERRL, conjunctivae normal, anicteric sclerae ENMT: external ear and nose normal, oropharynx normal Neck: trachea midline, no thyromegaly normal visual inspection Respiratory: normal respiratory effort, lungs clear to auscultation, no wheeze, rales, rhonchi. Normal insp/exp effort, no accessory muscle use Cardiovascular: RRR, no murmur, no edema Vessels: no JVD or carotid bruit Chest: normal inspection of chest Abdomen: normal bowel sounds, soft, nontender, no hepatosplenomegaly Musculoskeletal: no cyanosis or clubbing, extremities motor strength 5/5 Skin: no rashes, warm and dry normal turgor Neurologic: PERRL, EOMI, accommodation nl, no face palsy, no dysarthria CN's II- XI intact bilaterally and moves all extremities Psychiatric: A+Ox3, euthymic affect Lymphatic: no cervical or axillary lymphadenopathy : deferred Results & Data Results & Data ([facility]) Vital Signs (Past 12 Hours) Vital Signs Temp Pulse Resp BP BP Pulse Ox O2 Del Method 03/07/22 10:51 36.8 C 75 20 168/91 H 95 Room Air 03/07/22 07:59 36.7 C 74 18 177/97 H 96 Room Air 03/07/22 02:22 37.1 C 84 22 145/91 H 99 Room Air COVID-19 Results Results COVID-19 Adm Lab Results: RBC 4.74 M/uL (4.63-6.08) 03/05/22 WBC 6.19 K/ul (4.8-10.8) 03/05/22 Hgb 12.3 g/dl (14.0-18.0) L 03/05/22 Hct 37.4 % (40.1-51.0) L 03/05/22 Plt Count 148 K/uL (130-400) 03/05/22 Neutrophils (%) (Auto) 48.3 % 03/03/22 Lymphocytes (%) (Auto) 28.7 % 03/03/22 Monocytes # (Auto) 1.03 K/uL (0.24-0.82) H 03/03/22 Eosinophils # (Auto) 0.07 K/uL (0-0.50) 03/03/22 Immature Granulocyte % (Auto) 0.2 % 03/03/22 Neutrophils # (Auto) 2.41 K/uL (1.4-6.5) 03/03/22 Lymphocytes # (Auto) 1.43 K/uL (1.2-3.4) 03/03/22 Monocytes # (Auto) 1.03 K/uL (0.24-0.82) H 03/03/22 Eosinophils # (Auto) 0.07 K/uL (0-0.50) 03/03/22 Basophils # (Auto) 0.04 K/uL (0-0.2) 03/03/22 Immature Granulocyte # (Auto) 0.01 K/uL (0.00-0.02) 2 Anisocytosis Present 03/03/22 Tear Drop Cells 1+ 03/02/22 Na 128 mmol/L (136-145) L 03/07/22 K 4.2 mmol/L (3.5-5.1) 03/07/22 Cl 96 mmol/L (98-107) L 03/07/22 CO2 25 mmol/L (21-32) 03/07/22 Anion Gap 7 (3-11) 03/07/22 BUN 6 mg/dl (6-23) 03/07/22 Creatinine 0.58 mg/dl (0.6-1.4) L 03/07/22 BUN/Creatinine Ratio 10.3 (10-20) 03/07/22 Glucose Level 87 mg/dl (70-99(Fasting)) 03/07/22 Ca 9.0 mg/dl (8.5-10.1) 03/07/22 Phosphorus Level 4.1 mg/dl (2.5-4.9) 03/05/22 Total Bilirubin 0.6 mg/dl (0.2-1.0) 03/06/22 AST/SGOT 34 U/L (13-39) 03/06/22 ALT/SGPT 19 U/L (7-52) 03/06/22 Alkaline Phosphatase 73 U/L (34-104) 03/06/22 Total Protein 7.9 gm/dl (6.0-8.3) 03/06/22 Albumin 4.5 gm/dl (3.4-5.0) 03/06/22 Globulin 3.4 gm/dl (2.5-4.0) 03/06/22 Albumin/Globulin Ratio 1.3 (0.9-2) 03/06/22 Ferritin 25.1 ng/ml (8-388) 03/04/22 SARS-CoV-2, RNA, NAAT NEGATIVE (NEGATIVE) 03/02/22 (1) Alcohol withdrawal Complication of substance-induced condition: with unspecified complication Qualified Code(s): F10.939 - Alcohol use, unspecified with withdrawal, unspecified
[2022-03-08 06:47] LABS: Basophils # (auto) 0.06 K/uL (0-0.2); Eosinophils # (auto) 0.16 K/uL (0-0.50); Eosinophils % (auto) 2.6 %; Hematocrit (blood only) 37.5 % (40.1-51.0); Immature Granulocytes # (auto) 0.04 K/uL (0.00-0.02); Immature Granulocytes % (auto) 0.6 %; Lymphocytes # (auto) 1.71 K/uL (1.2-3.4); Lymphocytes % (auto) 27.5 %; Mean Corpuscular Hemoglobin 25.8 pg (25.0-34.0); Mean Corpuscular Volume 80.5 fL (80.0-100.0); Mean Platelet Volume 9.2 fL (9.4-12.4); Monocytes # (auto) 1.43 K/uL (0.24-0.82); Neutrophils # (auto) 2.82 K/uL (1.4-6.5); Neutrophils % (auto) 45.3 %; Platelet Count 258 K/uL (130-400); RDW Standard Deviation 58.6 fL (36.4-46.3); Red Blood Count 4.66 M/uL (4.63-6.08); White Blood Count 6.22 K/ul (4.8-10.8)
[2022-03-08 07:11] LABS: BUN Creatinine Ratio 9.5 (10-20); Calcium 9.3 mg/dl (8.5-10.1); Est GFR (African American) 126.8 ml/min; Est GFR (Non-African American) 109.4 ml/min; Phosphorus 3.5 mg/dl (2.5-4.9); Potassium 4.4 mmol/L (3.5-5.1)
[2022-03-08] MEDS: POT PHOSPHATE MONOBASIC W/ SOD TAB PO SCH ×4 (07:11→19:32)
[2022-03-08] MEDS: POTASSIUM CHLORIDE CRTAB 20 MEQ TABCR PO SCH ×2 (07:11→19:32)
[2022-03-08] MEDS: MAGNESIUM OXIDE 400 MG TAB PO SCH ×2 (07:11→19:32)
[2022-03-08] MEDS: THIAMINE HCL 100 MG TAB PO SCH (07:12)
[2022-03-08] MEDS: SODIUM CHLORIDE 1 GM TABLET PO SCH ×2 (07:12→19:32)
[2022-03-08] MEDS: ENOXAPARIN INJ 40 MG/0.4 ML SYR SQ SCH (07:12)
[2022-03-08] MEDS: amLODIPine BESYLATE 5 MG TAB PO SCH ×2 (07:12→08:18)
[2022-03-08] MEDS: FOLIC ACID 1 MG TAB PO SCH (07:12)
[2022-03-08] MEDS: ACETAMINOPHEN 325 MG TAB PO PRN ×2 (09:40→19:44)
[2022-03-08] MEDS ORDERED: LORATADINE 10 MG TAB PO ONE (10:58)
--- NOTE | 2022-03-08 11:36 | Hospitalist Progress Note ---
Date of Service March 08, 2022 Assessment & Plan (1) Alcohol withdrawal: (2) Hyponatremia: (3) Hypokalemia: (4) Hypomagnesemia: (5) Hypophosphatemia: Plan This is a 56-year-old male with history of alcoholism, history of hyponatremia, recurrent admissions for alcoholism, some ambulatory dysfunction, who presents with alcoholism and ambulatory dysfunction.Patient lives he was admitted to the floor. He was started on tapering dose of gabapentin for alcohol withdrawal. During the hospitalization he developed hyponatremia which was suspected secondary to beer potomania. Fluid restriction was implemented and salt tablet was started. Patient hyponatremia has improved He was evaluated with PT OT and is awaiting placement. 1. Alcoholism with alcohol withdrawal: no current symptoms of withdrawal. Finished tapering dose of gabapentin. 2. Ambulatory dysfunction, h/o falls, secondary to above:PT/OT recommended subacute rehab. Awaiting placement 3. Hyponatremia, likely beer potomania: 134->126 > 133> 128 > 129. Increase fluid restriction to 1 L. Urine osmolarity and urine electrolytes sent 4. Hypokalemia:repleted. c 5. Hypophosphatemia- repleted, 5. Hypertension:Started on amlodipine 5mg and titrated up to 10mg; titrate as necessary. 6. Esophageal stenosis: Needs to be on chopped soft diet. 7. Chronic anemia: Hemoglobin relatively stable 8. Hypomagnesemia- repleted. 9. History of tobacco abuse 10. Thrombocytopenia- mild, will monitor DVT prophylaxis: sq lovenox Dispo-multiple electrolyte abnormalities being addressed. He would like to go to [place] care to stay permanently- Admission and Anticipated Discharge Date Admission Date: March 02, 2022 Subjective Seen and examined at bedside. He is comfortable; not in any acute distress. He is concerned that he is not able to walk independently and requires help for walker. Review of Systems Review of Systems: All systems reviewed & are unremarkable except as noted in Subjective Physical Exam Physical Exam: Constitutional: comfortably lying on the bed; not in apparent distress. Respiratory: normal respiratory effort, lungs clear to auscultation, no wheeze, rales, rhonchi. Normal insp/exp effort, no accessory muscle use Cardiovascular: RRR, no murmur, no edema Vessels: no JVD or carotid bruit Chest: normal inspection of chest Abdomen: normal bowel sounds, soft, nontender, no hepatosplenomegaly Musculoskeletal: no cyanosis or clubbing, extremities motor strength 5/5 Skin: no rashes, warm and dry normal turgor Neurologic: PERRL, EOMI, accommodation nl, no face palsy, no dysarthria CN's II- XI intact bilaterally and moves all extremities Psychiatric: A+Ox3, anxious Lymphatic: no cervical or axillary lymphadenopathy : deferred Results & Data Results & Data ([facility]) Vital Signs (Past 12 Hours) Vital Signs Temp Pulse Resp BP BP Pulse Ox O2 Del Method 03/08/22 08:43 37.0 C 72 18 175/103 H 96 Room Air 03/08/22 04:00 37.0 C 65 18 162/91 H 95 Room Air 03/07/22 23:49 37.0 C 67 18 164/89 H 93 Room Air Diagnostic Findings Laboratory Results WBC 6.22 K/ul (4.8-10.8) 03/08/22 05:47 RBC 4.66 M/uL (4.63-6.08) 03/08/22 05:47 Hgb 12.0 g/dl (14.0-18.0) L 03/08/22 05:47 Hct 37.5 % (40.1-51.0) L 03/08/22 05:47 MCV 80.5 fL (80.0-100.0) 03/08/22 05:47 MCH 25.8 pg (25.0-34.0) 03/08/22 05:47 MCHC 32.0 g/dL (32.0-36.0) 03/08/22 05:47 RDW Std Deviation 58.6 fL (36.4-46.3) H 03/08/22 05:47 RDW Coeff of Luis 20.0 % (11.5-14.5) H 03/08/22 05:47 Plt Count 258 K/uL (130-400) 03/08/22 05:47 MPV 9.2 fL (9.4-12.4) L 03/08/22 05:47 Immature Gran % (Auto) 0.6 % 03/08/22 05:47 Neut % (Auto) 45.3 % 03/08/22 05:47 Lymph % (Auto) 27.5 % 03/08/22 05:47 [place] % (Auto) 23.0 % 03/08/22 05:47 Eos % (Auto) 2.6 % 03/08/22 05:47 Baso % (Auto) 1.0 % 03/08/22 05:47 Neut # (Auto) 2.82 K/uL (1.4-6.5) 03/08/22 05:47 Lymph # (Auto) 1.71 K/uL (1.2-3.4) 03/08/22 05:47 [place] # (Auto) 1.43 K/uL (0.24-0.82) H 03/08/22 05:47 Eos # (Auto) 0.16 K/uL (0-0.50) 03/08/22 05:47 Baso # (Auto) 0.06 K/uL (0-0.2) 03/08/22 05:47 Immature Gran # (Auto) 0.04 K/uL (0.00-0.02) H 03/08/22 05:47 Absolute Nucleated RBC Cancelled 03/07/22 06:27 Nucleated RBC % (auto) Cancelled 03/07/22 06:27 Platelet Estimate Cancelled 03/07/22 06:27 Anisocytosis Present 03/03/22 05:22 Tear Drop Cells 1+ 03/02/22 19:48 Sodium 129 mmol/L (136-145) L 03/08/22 05:47 Potassium 4.4 mmol/L (3.5-5.1) 03/08/22 05:47 Chloride 95 mmol/L (98-107) L 03/08/22 05:47 Carbon Dioxide 26 mmol/L (21-32) 03/08/22 05:47 Anion Gap 8 (3-11) 03/08/22 05:47 BUN 6 mg/dl (6-23) 03/08/22 05:47 Creatinine 0.63 mg/dl (0.6-1.4) 03/08/22 05:47 Est Cr Clr Drug Dosing 129.0 ml/min 03/08/22 05:47 Est GFR ( Amer) 126.8 ml/min 03/08/22 05:47 Est GFR (Non-Af Amer) 109.4 ml/min 03/08/22 05:47 BUN/Creatinine Ratio 9.5 (10-20) L 03/08/22 05:47 Glucose 89 mg/dl (70-99(Fasting)) 03/08/22 05:47 Calcium 9.3 mg/dl (8.5-10.1) 03/08/22 05:47 Phosphorus 3.5 mg/dl (2.5-4.9) 03/08/22 05:47 Magnesium 1.7 mg/dl (1.7-2.4) 03/05/22 06:05 Iron 47 mcg/dl (35-175) 03/04/22 06:23 Ferritin 25.1 ng/ml (8-388) 03/04/22 06:23 Total Bilirubin 0.6 mg/dl (0.2-1.0) 03/06/22 11:43 AST 34 U/L (13-39) 03/06/22 11:43 ALT 19 U/L (7-52) 03/06/22 11:43 Alkaline Phosphatase 73 U/L (34-104) 03/06/22 11:43 Total Protein 7.9 gm/dl (6.0-8.3) 03/06/22 11:43 Albumin 4.5 gm/dl (3.4-5.0) 03/06/22 11:43 Globulin 3.4 gm/dl (2.5-4.0) 03/06/22 11:43 Albumin/Globulin Ratio 1.3 (0.9-2) 03/06/22 11:43 Lipase 38 U/L (11-82) 03/02/22 19:48 Ethyl Alcohol mg/dL < 10.0 mg/dl (<10.0) 03/02/22 19:48 SARS-CoV-2, RNA, NAAT NEGATIVE (NEGATIVE) 03/02/22 19:58 (1) Alcohol withdrawal Complication of substance-induced condition: with unspecified complication Qualified Code(s): F10.939 - Alcohol use, unspecified with withdrawal, unspeci fied
[2022-03-08 21:37] LABS: Urine Potassium 78.8 mmol/L
[2022-03-09] MEDS: ACETAMINOPHEN 325 MG TAB PO PRN ×2 (03:42→10:18)
[2022-03-09 07:37] LABS: BUN Creatinine Ratio 12.5 (10-20); Calcium 9.5 mg/dl (8.5-10.1); Creatinine Clr Calc Pharmacy 125.2 ml/min; Est GFR (Non-African American) 108.7 ml/min; Phosphorus 3.5 mg/dl (2.5-4.9); Potassium 4.1 mmol/L (3.5-5.1)
[2022-03-09] MEDS: ENOXAPARIN INJ 40 MG/0.4 ML SYR SQ SCH (08:41)
[2022-03-09] MEDS: amLODIPine BESYLATE 5 MG TAB PO SCH (08:41)
[2022-03-09] MEDS: POT PHOSPHATE MONOBASIC W/ SOD TAB PO SCH ×2 (08:42→12:45)
[2022-03-09] MEDS: MAGNESIUM OXIDE 400 MG TAB PO SCH (08:42)
[2022-03-09] MEDS: FOLIC ACID 1 MG TAB PO SCH (08:42)
[2022-03-09] MEDS: POTASSIUM CHLORIDE CRTAB 20 MEQ TABCR PO SCH (08:42)
[2022-03-09] MEDS: THIAMINE HCL 100 MG TAB PO SCH (08:43)
[2022-03-09] MEDS: SODIUM CHLORIDE 1 GM TABLET PO SCH (08:43)
--- NOTE | 2022-03-09 13:05 | Hospitalist Progress Note ---
Date of Service March 09, 2022 Assessment & Plan (1) Alcohol withdrawal: (2) Hyponatremia: (3) Hypokalemia: (4) Hypomagnesemia: (5) Hypophosphatemia: Plan per Dr. Naranjo- previous hospitalist notes with addendum: This is a 56-year-old male with history of alcoholism, history of hyponatremia, recurrent admissions for alcoholism, some ambulatory dysfunction, who presents with alcoholism and ambulatory dysfunction.Patient lives he was admitted to the floor. He was started on tapering dose of gabapentin for alcohol withdrawal. During the hospitalization he developed hyponatremia which was suspected secondary to beer potomania. Fluid restriction was implemented and salt tablet was started. Patient hyponatremia has improved He was evaluated with PT OT and is awaiting placement. 1. Alcoholism with alcohol withdrawal: Finished tapering dose of gabapentin. 2. Ambulatory dysfunction, h/o falls, secondary to above: continue PT/OT at [facility] 3. Hyponatremia, likely beer potomania: 134->126 > 133> 128 > 129. continue Fluid restriction to 1200 continue salt tabs repeat BMP on Monday03/11/22 4. Hypokalemia: continue daily Potassium repeat labs Monday 5. Hypophosphatemia replaced repeat Ph on Monday 5. Hypertension:Started on amlodipine 5mg and titrated up to 10mg; titrate as necessary. 6. Esophageal stenosis: Needs to be on chopped soft diet. 7. Chronic anemia: Hemoglobin relatively stable 8. Hypomagnesemia- repleted. 9. History of tobacco abuse 10. Thrombocytopenia- resolved DVT prophylaxis: sq lovenox given Disposition: transition to [facility] ff up with PCP 1 week after stay in [facility] Admission and Anticipated Discharge Date Admission Date: March 02, 2022 Subjective ff up for alcohol withdrawal, etc seen resting in bed, sitting up having lunch states he feels fine overall no chest pain, dyspnea, palpitations, dizziness denies any symptoms strongly requesting to d/c fluid restriction explained need to patient also informed i can increase FR to 1200 and repeat labs Monday states he is ready for discharge to [facility] today Review of Systems Review of Systems: all noted and negative except for above Physical Exam Physical Exam: General- oriented x 3, not in distress, speaks in sentences with no effort or accessory muscle use Eyes- anicteric Neck- no JVD Lungs- clear BS bilaterally, no rales/wheezes Heart- normal rate, regular rhythm; no murmurs Abdomen- normal bowel sounds, nondistended, soft, nontender Extremities- no pretibial edema, no calf tenderness Neuro- alert, oriented x 3; no gross focal neurologic deficits Skin- warm & dry Results & Data Results & Data ([facility]) Vital Signs (Past 12 Hours) Vital Signs Temp Pulse Pulse Resp BP Pulse Ox O2 Del Method 03/09/22 10:53 36.8 C 79 18 145/87 H 96 Room Air 03/09/22 08:08 79 03/09/22 07:00 37.0 C 74 18 165/92 H 97 Room Air 03/09/22 03:45 36.9 C 78 18 153/94 H 98 Room Air all noted and reviewed including below (1) Alcohol withdrawal Complication of substance-induced condition: with unspecified complication Qualified Code(s): F10.939 - Alcohol use, unspecified with withdrawal, unspecified
--- NOTE | 2022-03-09 13:21 | Discharge Summary ---
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 The patient says he did not drink for the last 3 days and before that he was drinking 4-5 beers per day and they were big bottles. Today, he was feeling very weak and could not walk. He does not think he can go back to the apartment. He seems to be tremulous in the ER. He received Ativan and is okay now. He is very hard of hearing,wrote on the paper for getting answers from him. Says he is swallowing okay, though esophageal is still narrow as per patient. He says he has some headache, felt feverish, has some nausea, some cough. Vision is okay. Denies any chest pain, no shortness of breath, no abdominal pain or back pain. Normal bowel and bladder movements. Admission Exam Per Admitting Provider GENERAL: The patient is alert and awake, hard of hearing. VITAL SIGNS: Temperature 36.8, pulse 96, respiratory rate 15, blood pressure 169/116, oxygen 97% on room air. HEENT: Pupils equal, round and reactive to light. Oral mucosa dry. NECK: No JVD, no neck masses. CARDIOVASCULAR: S1 and S2 heard. Regular rate and rhythm. No murmur, no gallop. RESPIRATORY SYSTEM: Normal AP diameter. No accessory muscle use. No wheezing or crackles. ABDOMEN: Soft, bowel sounds present, nontender, no distention. CENTRAL NERVOUS SYSTEM: Alert and awake, hard of hearing, answers simple questions. Speech is clear. No facial droop. Insight is okay. Moves extremities. EXTREMITIES: No edema, no erythema. Principal Diagnosis ALCOHOL WITHDRAWAL HYPONATREMIA Discharge Exam General- oriented x 3, not in distress, speaks in sentences with no effort or accessory muscle use Eyes- anicteric Neck- no JVD Lungs- clear BS bilaterally, no rales/wheezes Heart- normal rate, regular rhythm; no murmurs Abdomen- normal bowel sounds, nondistended, soft, nontender Extremities- no pretibial edema, no calf tenderness Neuro- alert, oriented x 3; no gross focal neurologic deficits Skin- warm & dry Discharge Data Allergies Allergy/AdvReac Type Severity Reaction Status Date / Time hydralazine Allergy Intermediate rapid drop Verified 02/11/22 18:44 in BP/Vomiting Penicillins AdvReac Mild TIRED Verified 02/11/22 18:44 Consultations 03/02/22 20:56 ED Decision to Admit Stat Hospital Course (1) Alcohol withdrawal: (2) Hyponatremia: (3) Hypokalemia: (4) Hypomagnesemia: (5) Hypophosphatemia: Plan per Dr. Naranjo- previous hospitalist notes with addendum: This is a 56-year-old male with history of alcoholism, history of hyponatremia, recurrent admissions for alcoholism, some ambulatory dysfunction, who presents with alcoholism and ambulatory dysfunction.Patient lives he was admitted to the floor. He was started on tapering dose of gabapentin for alcohol withdrawal. During the hospitalization he developed hyponatremia which was suspected secondary to beer potomania. Fluid restriction was implemented and salt tablet was started. Patient hyponatremia has improved He was evaluated with PT OT and is awaiting placement. 1. Alcoholism with alcohol withdrawal: Finished tapering dose of gabapentin. 2. Ambulatory dysfunction, h/o falls, secondary to above: continue PT/OT at [facility] 3. Hyponatremia, likely beer potomania: 134->126 > 133> 128 > 129. continue Fluid restriction to 1200 continue salt tabs repeat BMP on Monday03/11/22 4. Hypokalemia: continue daily Potassium repeat labs Monday 5. Hypophosphatemia replaced repeat Ph on Monday 5. Hypertension:Started on amlodipine 5mg and titrated up to 10mg; titrate as necessary. 6. Esophageal stenosis: Needs to be on chopped soft diet. 7. Chronic anemia: Hemoglobin relatively stable 8. Hypomagnesemia- repleted. 9. History of tobacco abuse 10. Thrombocytopenia- resolved DVT prophylaxis: sq lovenox given Disposition: transition to [facility] ff up with PCP 1 week after stay in [facility] Total Time Total Time Spent Total Time Spent (In Minutes): >60 MINUTES Discharge Plan Discharge Items Patient Disposition: Transfer Inpatient Rehab Fac Reason For Visit: WEAKNESS Discharge Diagnosis: ALCOHOL WITHDRAWAL HYPONATREMIA Activity: As commented below Activity Comment: CONTINUE PT/OT, FALL PRECAUTIONS PLEASE Driving/Machine Use: NO DRIVING Non-emergency contact: Primary Care Provider Call non-emergency contact if: you have any medication questions, your symptoms worsen, your pain is not controlled, your pain is worsening, your pain is unusual for you, your pain is concerning for you and you have a fever Follow-up/Referrals: Denis Burleson DO [Primary Care Provider] - Diet: Regular Fluids: 1200ml (5 cups) Diet Comment: MINCED AND MOIST DIET Addtl Attending Provider Instructions: MONITOR BP DAILY (RE: HYPERTENSION). REPEAT BASIC METABOLIC PROFILE, MAGNESIUM AND PHOSPHORUS LEVELS ON Monday03/11/22. PLEASE REFER TO ACCOMPANYING HOSPITAL DISCHARGE SUMMARY FOR FULL DETAILS. Pending Studies at Discharge: Yes Studies:: REPEAT BASIC METABOLIC PROFILE, MAGNESIUM AND PHOSPHORUS LEVELS ON Monday03/11/22. Stand-Alone Forms: My [facility] Skilled Items Patient informed of condition?: Yes DNR: No Discharge Level of Care: Acute rehab Communicable Disease: No Discharge Prognosis: Stable Lines: None Urinary Catheter: No Medications and DC Order Prescriptions: New sodium chloride 1 gram Tablet 1 g PO BID 7 Days Qty: 14 0RF amlodipine [Norvasc] 5 mg Tablet 10 mg PO QAM 30 Days Qty: 60 0RF potassium chloride 20 mEq Tablet,Er Particles/Crystals 40 meq PO DAILY 14 Days Qty: 28 0RF magnesium oxide 400 mg (241.3 mg magnesium) Tablet 400 mg PO BID 14 Days Qty: 28 0RF Continued riboflavin (vitamin B2) [Vitamin B-2] 50 mg Tablet 0 mg PO DAILY Rx Instructions: PT DOESN'T KNOW STRENGTH multivitamin with folic acid [Daily-Ifeanyi (with folic acid)] 400 mcg Tablet 1 tab PO QAM Qty: 30 0RF folic acid 1 mg Tablet 1 mg PO QAM Qty: 30 0RF thiamine HCl (vitamin B1) [Vitamin B-1] 100 mg tablet 100 mg PO DAILY Discharge Orders: Discharge Order (Routine); Ordered 03/09/22 Ordered By: Romario Ratliff Admission Data Admit Date/Time: 03/02/22 21:49 Attending Provider: Romario Ratliff Admit Provider: Marcus Dalton Primary Care Provider: Denis Burleson Other Providers: Marcus Dalton ; Arnold Chamorro ; [facility] ; [place] ; [facility] ; Jose A Cardona Other Interventions: Discharge Summary Assessment (RN) Last Done: 03/09/22 13:00
== END 2022-03-09 15:00 | DRG 897 ==
LOC: ED 19:02 → 2N 21:49 → SUATTDRO 21:49 → 2N 23:35

== ENCOUNTER 2022-03-31 06:47 | Inpatient (IN) ==
[2022-03-31] MEDS ORDERED: LORazepam 2 MG/2 ML SYR IV STA (07:00)
--- NOTE | 2022-03-31 07:00 | Emergency Department Note ---
Impression & Plan Alcohol use disorder ADMIT ED Provider Note HPI: The patient is a 56-year-old gentleman who presents the emergency department approximately 15 minutes after he was discharged continuing to complain of ambulatory dysfunction. Patient is well-known to this emergency department, has a history of chronic alcohol abuse, presented last evening with alcohol intoxication, was seen to be ambulatory prior to discharge but states that he feels too weak to stand up. He has been admitted previously for similar symptoms. At the time of my assessment he is mildly tachycardic but does not appear to be going through any symptoms of florid alcohol withdrawal. ROS: -General: Ambulatory dysfunction *10 point review systems was conducted and is otherwise negative unless stated above *Outpatient medications and allergy history reviewed PE: General: Alert, NAD HEENT: Normocephalic, atraumatic Eyes: Extraocular eye movement is intact, no scleral erythema Pulmonary: Clear to auscultation bilaterally, no wheezing Cardio: Regular rate and rhythm GI: Abdomen is soft, nontender : No suprapubic tenderness MSK: No evidence of trauma or malformation of the extremities, no edema Skin: No evidence of rash Neuro: Alert, no focal deficits, mild tremulousness Psychiatric: Cooperative Medical Decision Making: Patient presented to the emergency department for reevaluation after being discharged. He continues to state that he feels too unsteady to go home. He has some mild tremulousness although he does not appear to be in florid withdrawal, he was given Ativan as he is very anxious. His symptoms in general are chronic in nature and he does have a history of noncompliance and malingering. Difficult to assess his ambulatory status given his chronic alcohol abuse and possibility for cerebellar issues secondary to his chronic alcohol abuse, he is also minimally compliant with ambulatory trials here in the ED. Patient will be placed on junior manufacturing engineer, given repeat presentation, I did discuss the case with the on-call [facility] hospitalist, Dr. Dalton, patient will be admitted for ambulatory dysfunction and PT/OT. Diagnosis: 1. Ambulatory dysfunction 2. Alcohol abuse, chronic Disposition: Admission Keven Mcdaniels DO Emergency Medicine Past Med/Surg History Medical History Adult failure to thrive Alcohol use disorder Ambulatory dysfunction Anemia Anxiety Aortic root dilation Ataxia Bunion of unspecified foot Chronic hyponatremia Dementia DTs (delirium tremens) Esophageal tear Flat foot, acquired Frequent falls Generalized atherosclerosis Generalized weakness Hammer toe, acquired unspecified Hearing deficit Hereditary and idiopathic neuropathy, unspecified History of COVID-19 ? 07/17/20 per records History of esophageal dilatation last done 04/16/21 @ [facility] History of esophageal stricture Hx of fracture of hip Hypertension Hypokalemia Hypomagnesemia detention resident velasquez 2500 cc fluid daily restriction was noted in records Sensorineural hearing loss (SNHL) of both ears Subgaleal hemorrhage Surgical History History of esophagogastroduodenoscopy (EGD) (~04/16/21) History of hip surgery s/p fall and fx Family History Other Cancer Hypertension Denies family history of Myocardial infarction Stroke Social History Smoking Status: Never smoker Tobacco Type: Cigarettes Second Hand Exposure: No; Hx Alcohol Use: Yes Alcohol type: beer Alcohol Intake Frequency Comment: 7-10 beers a day, uncertain which kind of beer Hx Substance Use: Yes Preferred Language: Italian Communication Ability: Effective Visual Impairment: No Limitations Hearing Ability: Hard of Hearing Divine Healer Required: No Beliefs That Will Affect Care: None marital status: Single Current Living Situation: Alone Current Living Situation Comment: [employer] [facility] Feels Safe at Home: Yes Assistive Devices: Cane and Walker Allergies Allergies Allergy/AdvReac Type Severity Reaction Status Date / Time hydralazine Allergy Intermediate rapid drop Verified 03/30/22 20:55 in BP/Vomiting Penicillins AdvReac Mild TIRED Verified 03/30/22 20:55 Home Meds Home Medications Medication Instructions Recorded Confirmed thiamine HCl (vitamin B1) 100 mg 100 mg PO DAILY 02/02/22 03/30/22 tablet (Vitamin B-1) riboflavin (vitamin B2) 50 mg 0 mg PO DAILY 02/11/22 03/30/22 tablet (Vitamin B-2) amlodipine 10 mg tablet 10 mg PO DAILY 03/30/22 03/30/22 hydroxyzine HCl 25 mg tablet 25 mg PO Q6 PRN Itching 03/30/22 03/30/22 magnesium oxide 400 mg (241.3 mg 400 mg PO BID 03/30/22 03/30/22 magnesium) tablet potassium chloride 20 mEq 20 meq PO DAILY 03/30/22 03/30/22 tablet,extended release sodium chloride 1 gram tablet 1 g PO BID 03/30/22 03/30/22 Previous Rx's Medication Instructions Recorded multivitamin with folic acid 400 1 tab PO QAM #30 tabs 10/29/21 mcg tablet (Daily-Ifeanyi (with folic acid)) folic acid 1 mg tablet 1 mg PO QAM #30 tabs 12/31/21 Results & Data (ED) Vital Signs Vital Signs - 24 hr 03/31/22 06:49 Temperature 36.5 C Temperature Source Temporal Artery Scan Pulse Rate 116 H Respiratory Rate 24 Respiratory Effort / Characteristics Non-Labored Spontaneous Respiratory Depth Normal Blood Pressure 155/99 H Blood Pressure Mean 117 Pulse Oximetry 96 Oxygen Delivery Method Room Air Sepsis New/Unexplained Change in Mental Status N/A Sepsis Action Taken by Nursing No Action Required Discharge Plan Visit Data Chief Complaint: Leg Weakness, Bilateral Stated Complaint: PROBLEMS WALKING ED Provider: Kevne Mcdaniels Discharge Problem: Alcohol use disorder Forms Stand Alone Forms: [facility] Prescriptions Prescriptions: No Action riboflavin (vitamin B2) [Vitamin B-2] 50 mg Tablet 0 mg PO DAILY Rx Instructions: PT DOESN'T KNOW STRENGTH multivitamin with folic acid [Daily-Ifeanyi (with folic acid)] 400 mcg Tablet 1 tab PO QAM Qty: 30 0RF folic acid 1 mg Tablet 1 mg PO QAM Qty: 30 0RF thiamine HCl (vitamin B1) [Vitamin B-1] 100 mg tablet 100 mg PO DAILY amlodipine 10 mg tablet 10 mg PO DAILY sodium chloride 1 gram tablet 1 g PO BID magnesium oxide 400 mg (241.3 mg magnesium) tablet 400 mg PO BID hydroxyzine HCl 25 mg tablet 25 mg PO Q6 PRN (Reason: Itching) potassium chloride 20 mEq tablet extended release 20 meq PO DAILY Referrals Referrals: Denis Burleson DO [Primary Care Provider] -
--- NOTE | 2022-03-31 08:13 | History & Physical Report ---
Date of Service March 31, 2022 Assessment & Plan (1) Alcohol intoxication: (2) Ambulatory dysfunction: (3) Frequent falls: (4) Alcohol abuse: (5) Chronic hyponatremia: (6) Dementia: Plan: This is a 56yo M with a PMH of alcoholism, recurrent falls and weakness and other medical problems listed below who returns after being discharged from the ED overnight. Alcohol intoxication Alcohol use disorder Etoh level 280 on admission Monitor for withdrawal, history of DTs on previous admissions Alcohol withdrawal protocol, gabapentin and PRN IV ativan Add PRN clonidine if indicated for elevated BP Folic acid and Thiamine Frequent falls Generalized weakness Ambulatory dysfunction 2/2 chronic alcohol use, recent [facility] stay Fall precautions PT/OT consulted Chronic hyponatremia 2/2 alcoholism. Is prescribed sodium chloride tablets BID. Na currently stable at 138. Fluid restriction of 1200ml. Daily BMP History of thrombocytopenia 2/2 alcoholism Platelets 280 on admission Monitor while on VTE ppx History of esophageal stenosis Chopped soft diet, aspiration precautions DVT Ppx: Lovenox. Monitor platelets Code status: FULL PCP: Sarah Beth Dispo:Admitted to med/tele Patient seen in collaboration with Dr. Cardona. Please see addendum. History of Present Illness Chief Complaint: weakness, falls Primary Care Provider: Denis Burleson DO This is a 56yo M with a PMH of alcoholism, recurrent falls and weakness and other medical problems listed below who returns early this morning 15 minutes after being discharged from the ED overnight. Feels too unsteady to go home. Initially presented seemingly was leaving his apartment to get something a go to the liquor store when he felt weak and fell to the ground. Denies any head trauma or loss of consciousness. No significant pain but weak and unable to get up on his own. Denies any significant pain. Intermittent nausea. No fever, chills, chest pain or shortness of breath. No abdominal pain or vomiting. Reports urinating without issue. Bowel movements at baseline. Poor historian in setting of dementia and chronic alcohol use. Was given some Ativan in the ED as he was very anxious and had some mild tremulousness. Chronic issues with alcoholism with recent admission and discharged to [facility]. History of chronic ambulatory dysfunction given long-term alcohol abuse and possible cerebellar issues 2/2 alcohol abuse. Labs reviewed from overnight ED encounters. Allergies Allergy/AdvReac Type Severity Reaction Status Date / Time hydralazine AdvReac Intermediate rapid drop Verified 03/31/22 11:37 in BP/Vomiting Penicillins AdvReac Mild TIRED Verified 03/30/22 20:55 Home Medications Medication Instructions Recorded Confirmed Type multivitamin with folic acid 400 1 tab PO QAM #30 tabs 10/29/21 03/31/22 Rx mcg tablet (Daily-Ifeanyi (with folic acid)) folic acid 1 mg tablet 1 mg PO QAM #30 tabs 12/31/21 03/31/22 Rx thiamine HCl (vitamin B1) 100 mg 100 mg PO DAILY 02/02/22 03/31/22 History tablet (Vitamin B-1) riboflavin (vitamin B2) 50 mg 0 mg PO DAILY 02/11/22 03/31/22 History tablet (Vitamin B-2) amlodipine 10 mg tablet 10 mg PO DAILY 03/30/22 03/31/22 History hydroxyzine HCl 25 mg tablet 25 mg PO Q6 PRN Itching 03/30/22 03/31/22 History magnesium oxide 400 mg (241.3 mg 400 mg PO BID 03/30/22 03/31/22 History magnesium) tablet potassium chloride 20 mEq 20 meq PO DAILY 03/30/22 03/31/22 History tablet,extended release sodium chloride 1 gram tablet 1 g PO BID 03/30/22 03/31/22 History Past Med/Surg History Medical History Adult failure to thrive Alcohol use disorder Ambulatory dysfunction Anemia Anxiety Aortic root dilation Ataxia Bunion of unspecified foot Chronic hyponatremia Dementia DTs (delirium tremens) Esophageal tear Flat foot, acquired Frequent falls Generalized atherosclerosis Generalized weakness Hammer toe, acquired unspecified Hearing deficit Hereditary and idiopathic neuropathy, unspecified History of COVID-19 ? 07/17/20 per records History of esophageal dilatation last done 04/16/21 @ [facility] History of esophageal stricture Hx of fracture of hip Hypertension Hypokalemia Hypomagnesemia assisted resident melchor ocho[facility] 2500 cc fluid daily restriction was noted in records Sensorineural hearing loss (SNHL) of both ears Subgaleal hemorrhage Surgical History History of esophagogastroduodenoscopy (EGD) (~04/16/21) History of hip surgery s/p fall and fx Family History Other Cancer Hypertension Denies family history of Myocardial infarction Stroke Social History Smoking Status: Never smoker Tobacco Type: Cigarettes Second Hand Exposure: No; Hx Alcohol Use: Yes Alcohol type: beer Alcohol Intake Frequency Comment: 7-10 beers a day, uncertain which kind of beer Hx Substance Use: No Preferred Language: Azeri Communication Ability: Effective Visual Impairment: No Limitations Hearing Ability: Hard of Hearing Greenskeeper Laborer Required: No Beliefs That Will Affect Care: None marital status: Single Current Living Situation: Alone Current Living Situation Comment: [employer] Appartment Feels Safe at Home: Yes Assistive Devices: Cane and Walker Review of Systems Review of Systems: All systems reviewed & are unremarkable except as noted in Subjective Physical Exam Physical Exam: Please see Dr. Cardona's addendum for physical exam details. Results & Data Results & Data ([facility]) Vital Signs (Past 12 Hours) Vital Signs Temp Pulse Resp BP Pulse Ox O2 Del Method 03/31/22 06:49 36.5 C 116 H 24 155/99 H 96 Room Air Laboratory Results Laboratory Results SARS-CoV-2, RNA, NAAT NEGATIVE (NEGATIVE) 03/31/22 07:00 Code Status & VTE Plan VTE Prophylaxis Plan VTE Prophylaxis will be ordered: Yes Supervising Physician Co-Signing Physician Notes Patient seen and examined independently. Agree with above documentation of Hortencia Gonzalez PA-C. Patient is a 56-year-old male with history of chronic alcoholism and ambulatory dysfunction likely secondary to alcoholism. Last admission was from 03/02-03/09 when he was admitted for similar complaints. He was discharged to [facility]. Patient was discharged from the rehab on 03/20. He says he was doing fine since the discharge and had no issues with his ambulation. However, he started to have issues with ambulation. He says he is not able to walk. He denies drinking alcohol recently but he appeared to be intoxicated. His blood alcohol level was found to be 280 on admission. He denies any weakness/numbness of any specific body part, dizziness, visual changes, abdominal pain or urinary symptoms. Physical examination: Constitutional: Awake, alert and oriented to time place and person. Appears to be intoxicated. Head: Normocephalic, Atraumatic Eyes: PERRL, conjunctivae normal, anicteric sclerae ENMT: external ear and nose normal, oropharynx normal Neck: trachea midline, no thyromegaly normal visual inspection Respiratory: Bilateral vesicular breath sound Cardiovascular: RRR, no murmur, no edema Vessels: no JVD or carotid bruit Chest: normal inspection of chest Abdomen: normal bowel sounds, soft, nontender, no hepatosplenomegaly Musculoskeletal: no cyanosis or clubbing, extremities motor strength 5/5 Skin: no rashes, warm and dry normal turgor Neurologic: PERRL, EOMI, accommodation nl, no face palsy, no dysarthria CN's II- XI intact bilaterally and moves all extremities. Finger-nose test normal Psychiatric: A+Ox3, euthymic affect Lymphatic: no cervical or axillary lymphadenopathy : deferred Assessment/plan Alcohol intoxicationmonitor for signs and symptoms of withdrawal. Continue on gabapentin tapering dose and Ativan as needed. Ambulatory dysfunctionhad extensive evaluation in the past. 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 His vitamin B12 level in December was 279. Obtain serum vitamin B12 level. PT OT ordered Hypertensionwas started on amlodipine 10 mg once daily last admission. Resumed. History of hyponatremia-sodium is 138 in this admission. We will keep him at fluid restriction of 1200 cc for now. Full code Lovenox for DVT prophylaxis PT OT evaluation for placement. 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
[2022-03-31] MEDS ORDERED: GABAPENTIN 1200MG ALCOHOL WITHDRAWAL LOAD PO STA (11:31)
[2022-03-31] MEDS ORDERED: Ativan IV Alcohol Withdrawal--Active Protocol IV PRN (11:31)
[2022-03-31] MEDS ORDERED: LORazepam 2 MG in SYRINGE 1 ML IV PRN (11:31)
[2022-03-31] MEDS ORDERED: LORazepam 1 MG in SYRINGE 0.5 ML IV PRN (11:31)
[2022-03-31] MEDS ORDERED: FOLIC ACID 1 MG TAB PO ONE (12:00)
[2022-03-31] MEDS ORDERED: THIAMINE HCL 100 MG TAB PO ONE (12:00)
[2022-03-31] MEDS: GABAPENTIN 600 MG TAB PO ONE ×2 (12:21→12:35)
[2022-03-31] MEDS ORDERED: CYANOCOBALAMIN (B-12) 500 MCG TABLET PO SCH (16:15)
[2022-03-31] MEDS: amLODIPine BESYLATE 5 MG TAB PO SCH (16:50)
[2022-03-31] MEDS: hydrOXYzine HCl 25 MG TAB PO PRN (18:37)
[2022-03-31] MEDS: MAGNESIUM OXIDE 400 MG TAB PO SCH (19:36)
[2022-03-31] MEDS: GABAPENTIN 600 MG TAB PO SCH (19:36)
[2022-03-31] MEDS: ONDANSETRON INJ 2 MG/ML 2 ML VIAL IV PRN (19:36)
[2022-03-31] MEDS: SODIUM CHLORIDE 1 GM TABLET PO SCH (19:36)
[2022-03-31] MEDS: ACETAMINOPHEN 325 MG TAB PO PRN (21:19)
[2022-04-01] MEDS: GABAPENTIN 600 MG TAB PO SCH ×3 (00:51→17:14)
[2022-04-01 07:26] LABS: BUN Creatinine Ratio 8.8 (10-20); Calcium 8.9 mg/dl (8.5-10.1); Creatinine Clr Calc Pharmacy 123.8 ml/min; Est GFR (African American) 122.9 ml/min; Magnesium 1.9 mg/dl (1.7-2.4); Potassium 3.4 mmol/L (3.5-5.1)
[2022-04-01] MEDS ORDERED: POTASSIUM CHLORIDE CRTAB 20 MEQ TABCR PO STA (07:27)
[2022-04-01] MEDS ORDERED: amLODIPine BESYLATE 5 MG TAB PO SCH (09:00)
[2022-04-01] MEDS ORDERED: POTASSIUM CHLORIDE CRTAB 20 MEQ TABCR PO SCH (09:00)
[2022-04-01] MEDS ORDERED: RIBOFLAVIN 50 MG PO SCH (09:00)
[2022-04-01] MEDS: CYANOCOBALAMIN (B-12) 500 MCG TABLET PO SCH (09:44)
[2022-04-01] MEDS: MULTIVITAMIN TAB PO SCH (09:44)
[2022-04-01] MEDS: amLODIPine BESYLATE 5 MG TAB PO SCH (09:45)
[2022-04-01] MEDS: THIAMINE HCL 100 MG TAB PO SCH (09:45)
[2022-04-01] MEDS: MAGNESIUM OXIDE 400 MG TAB PO SCH ×2 (09:45→21:10)
[2022-04-01] MEDS: FOLIC ACID 1 MG TAB PO SCH (09:45)
[2022-04-01] MEDS: SODIUM CHLORIDE 1 GM TABLET PO SCH ×2 (09:46→21:10)
[2022-04-01] MEDS: ENOXAPARIN INJ 40 MG/0.4 ML SYR SQ SCH (10:01)
[2022-04-01 10:31] LABS: Hematocrit (blood only) 40.7 % (40.1-51.0); Hemoglobin 13.3 g/dl (14.0-18.0); Mean Corpuscular Hemoglobin 25.6 pg (25.0-34.0); Mean Corpuscular Hgb Conc 32.7 g/dL (32.0-36.0); Mean Corpuscular Volume 78.3 fL (80.0-100.0); Mean Platelet Volume 8.8 fL (9.4-12.4); Platelet Count 242 K/uL (130-400); RDW Standard Deviation 54.4 fL (36.4-46.3)
[2022-04-01] MEDS: POTASSIUM CHLORIDE PWD 20 MEQ PACK PO SCH (11:13)
[2022-04-01] MEDS: ONDANSETRON INJ 2 MG/ML 2 ML VIAL IV PRN (13:06)
--- NOTE | 2022-04-01 13:51 | Hospitalist Progress Note ---
Date of Service April 01, 2022 Assessment & Plan (1) Alcohol intoxication: (2) Ambulatory dysfunction: (3) Frequent falls: (4) Alcohol abuse: (5) Chronic hyponatremia: (6) Dementia: Plan: This is a 56yo M with a PMH of alcoholism, recurrent falls and weakness and other medical problems listed below who returns after being discharged from the ED overnight. Alcohol intoxication Alcohol use disorder Etoh level 280 on admission Monitor for withdrawal, history of DTs on previous admissions Alcohol withdrawal protocol, gabapentin and PRN IV ativan Add PRN clonidine if indicated for elevated BP Folic acid and Thiamine Frequent falls Generalized weakness Ambulatory dysfunction 2/2 chronic alcohol use, recent [facility] stay Fall precautions PT/OT consulted - awaiting evaluation Chronic hyponatremia 2/2 alcoholism. Is prescribed sodium chloride tablets BID. Na of 134 today. Fluid restriction of 1200ml. Daily BMP Hypokalemia Replaced. Monitor with daily BMP History of thrombocytopenia 2/2 alcoholism Platelets 280 on admission Monitor while on VTE ppx History of esophageal stenosis Chopped soft diet, aspiration precautions DVT Ppx: Lovenox. Monitor platelets Code status: FULL PCP: Sarah Beth Dispo:Admitted to med/tele Patient seen in collaboration with Dr. Cardona. Please see addendum. Admission and Anticipated Discharge Date Admission Date: March 31, 2022 Supervising Physician Co-Signing Physician Notes Agree with above documentation of Hortencia Gonzalez PA-C. Patient seen and examined independently. Is lying in the bed comfortably; not in any distress. He reports that he is not able to ambulate independently and requires walker. He denies any tremors, hallucination or other symptoms of alcohol withdrawal. Alcohol intoxicationcontinue to monitor for signs and symptoms of withdrawal. Continue on gabapentin tapering dose and Ativan as needed. Ambulatory dysfunctionhad extensive evaluation in the past. Vitamin B12 level is 335. Continue on supplemental vitamin and B12. Hypertensionwas started on amlodipine 10 mg once daily last admission. Resumed. Blood pressure well controlled. History of hyponatremia-sodium is 1384. We will keep him at fluid restriction of 1200 cc for now. Hypokalemiareplaced Subjective Patient seen and examined in 287-1. Feeling well today although still feels very weak. Has some intermittent nausea with standing but denies any vomiting. Has been able to ambulate with walker and help. States he knows he needs to stop drinking because it has "ruined something in his brain". Tolerating lunch without issue. No fever, chills, headache, chest pain, shortness of breath, abdominal pain, dysuria or constipation. States he is waiting to work with therapy. Review of Systems Review of Systems: All systems reviewed & are unremarkable except as noted in Subjective Physical Exam Physical Exam: Gen: WD/WN, NAD, sitting in bed, A&Ox3, communicating a ppropriately, tremulous with movement HEENT: Normocephalic, atraumatic, conjunctivae moist, sclerae anicteric, mucous membranes moist Lung: Clear to Auscultation bilaterally, no wheezes/rales/rhonchi Heart: Regular rate, regular rhythm, no murmurs, rubs, or gallops Abdomen: Soft, NT, ND +BS x 4 Extremities: no edema Skin: Warm, no rash Results & Data Results & Data ([facility]) Vital Signs (Past 12 Hours) Vital Signs Temp Pulse Resp BP Pulse Ox O2 Del Method 04/01/22 11:43 36.8 C 101 H 20 123/88 97 Room Air 04/01/22 07:42 37.0 C 83 20 128/91 93 Room Air 04/01/22 04:17 36.9 C 84 18 144/87 H 92 Room Air Laboratory Results Short CBC 04/01/22 Range/Units 10:06 WBC 9.80 (4.8-10.8) K/ul Hgb 13.3 L (14.0-18.0) g/dl Hct 40.7 (40.1-51.0) % Plt Count 242 (130-400) K/uL [facility] 04/01/22 06:28 Sodium 134 L Potassium 3.4 L Chloride 99 Carbon Dioxide 26 BUN 6 Creatinine 0.68 Glucose 90 Calcium 8.9 (1) Alcohol intoxication Complication of substance-induced condition: with unspecified complication Qualified Code(s): F10.929 - Alcohol use, unspecified with intoxication, unspecified (2) Dementia Dementia behavioral disturbance: without behavioral disturbance Dementia type: associated with alcoholism Qualified Code(s): F10.27 - Alcohol dependence with alcohol-induced persisting dementia
[2022-04-01] MEDS: ACETAMINOPHEN 325 MG TAB PO PRN ×2 (14:25→18:37)
[2022-04-02] MEDS: GABAPENTIN 600 MG TAB PO SCH ×2 (01:07→13:55)
[2022-04-02] MEDS: ACETAMINOPHEN 325 MG TAB PO PRN (01:10)
[2022-04-02 08:42] LABS: Hematocrit (blood only) 41.7 % (40.1-51.0); Hemoglobin 13.4 g/dl (14.0-18.0); Mean Corpuscular Hemoglobin 25.9 pg (25.0-34.0); Mean Corpuscular Hgb Conc 32.1 g/dL (32.0-36.0); Mean Corpuscular Volume 80.7 fL (80.0-100.0); Mean Platelet Volume 9.6 fL (9.4-12.4); Platelet Count 162 K/uL (130-400); RDW Coefficient of Variation 20.2 % (11.5-14.5); RDW Standard Deviation 57.2 fL (36.4-46.3); Red Blood Count 5.17 M/uL (4.63-6.08)
[2022-04-02 09:06] LABS: Potassium 4.1 mmol/L (3.5-5.1)
[2022-04-02 09:07] LABS: Albumin Globulin Ratio 1.4 (0.9-2); BUN Creatinine Ratio 18.3 (10-20); Bilirubin,Total 0.6 mg/dl (0.2-1.0); Calcium 8.9 mg/dl (8.5-10.1); Creatinine Clr Calc Pharmacy 121.4 ml/min; Est GFR (African American) 120.7 ml/min; Est GFR (Non-African American) 104.2 ml/min; Globulin 2.8 gm/dl (2.5-4.0); Magnesium 1.9 mg/dl (1.7-2.4); Total Protein 6.8 gm/dl (6.0-8.3)
[2022-04-02 09:11] LABS: Anisocytosis Present
[2022-04-02] MEDS: amLODIPine BESYLATE 5 MG TAB PO SCH (09:12)
[2022-04-02] MEDS: CYANOCOBALAMIN (B-12) 500 MCG TABLET PO SCH (09:13)
[2022-04-02] MEDS: FOLIC ACID 1 MG TAB PO SCH (09:15)
[2022-04-02] MEDS: MAGNESIUM OXIDE 400 MG TAB PO SCH ×2 (09:15→20:28)
[2022-04-02] MEDS: MULTIVITAMIN TAB PO SCH (09:16)
[2022-04-02] MEDS: POTASSIUM CHLORIDE PWD 20 MEQ PACK PO SCH (09:17)
[2022-04-02] MEDS: THIAMINE HCL 100 MG TAB PO SCH (09:17)
[2022-04-02] MEDS: SODIUM CHLORIDE 1 GM TABLET PO SCH ×2 (09:18→20:28)
[2022-04-02] MEDS: ENOXAPARIN INJ 40 MG/0.4 ML SYR SQ SCH (09:19)
[2022-04-02 09:26] LABS: Basophils # (auto) 0.04 K/uL (0-0.2); Basophils % (auto) 0.5 %; Eosinophils # (auto) 0.45 K/uL (0-0.50); Eosinophils % (auto) 5.5 %; Immature Granulocytes # (auto) 0.04 K/uL (0.00-0.02); Immature Granulocytes % (auto) 0.5 %; Lymphocytes # (auto) 2.31 K/uL (1.2-3.4); Monocytes % (auto) 10.9 %; Neutrophils # (auto) 4.51 K/uL (1.4-6.5); Neutrophils % (auto) 54.6 %
--- NOTE | 2022-04-02 12:38 | Hospitalist Progress Note ---
Date of Service April 02, 2022 Assessment & Plan (1) Alcohol intoxication: (2) Ambulatory dysfunction: (3) Frequent falls: (4) Alcohol abuse: (5) Chronic hyponatremia: (6) Dementia: Plan: This is a 56yo M with a PMH of alcoholism, recurrent falls and weakness and other medical problems listed below who returns after being discharged from the ED overnight. Alcohol intoxication Alcohol use disorder Etoh level 280 on admission Monitor for withdrawal, history of DTs on previous admissions Alcohol withdrawal protocol, gabapentin and PRN IV ativan Folic acid and Thiamine Frequent falls Generalized weakness Ambulatory dysfunction 2/2 chronic alcohol use, recent [facility] stay Fall precautions PT/OT consulted -recommended rehab. Chronic hyponatremia 2/2 alcoholism. Is prescribed sodium chloride tablets BID. Na of 134 today. Fluid restriction of 1200ml. Daily BMP Vitamin B12 borderline deficient - Serum 335. Started on vitamin B12 suppleme nt. Hypokalemia Replaced. Monitor with daily BMP History of thrombocytopenia 2/2 alcoholism Platelets 280 on admission Monitor while on VTE ppx History of esophageal stenosis Chopped soft diet, aspiration precautions DVT Ppx: Lovenox. Monitor platelets Code status: FULL PCP: Sarah Beth Dispo:Admitted to med/tele. PT OT recommended rehab. [employer] on board. Admission and Anticipated Discharge Date Admission Date: March 31, 2022 Subjective Patient seen and examined at bedside. He continues to complain that he is not able to walk by himself. He is agreeable to work with physical therapist and occupational therapist. Denies any signs and symptoms of withdrawal. Review of Systems Review of Systems: All systems reviewed & are unremarkable except as noted in Subjective Physical Exam Physical Exam: Gen: WD/WN, NAD, sitting in bed, A&Ox3, communicating appropriately. HEENT: Normocephalic, atraumatic, conjunctivae moist, sclerae anicteric, mucous membranes moist Lung: Clear to Auscultation bilaterally, no wheezes/rales/rhonchi Heart: Regular rate, regular rhythm, no murmurs, rubs, or gallops Abdomen: Soft, NT, ND +BS x 4 Extremities: no edema Skin: Warm, no rash Results & Data Results & Data ([facility]) Vital Signs (Past 12 Hours) Vital Signs Temp Pulse Pulse Resp BP BP Pulse Ox 04/02/22 12:00 37.1 C 77 113/79 93 04/02/22 08:00 69 04/02/22 08:15 04/02/22 09:11 97 H 126/80 04/02/22 08:00 36.3 C L 78 22 146/92 H 97 04/02/22 03:16 37 C 79 18 133/91 93 O2 Del Method 04/02/22 12:00 Room Air 04/02/22 08:00 04/02/22 08:15 Room Air 04/02/22 09:11 04/02/22 08:00 Room Air 04/02/22 03:16 Room Air Laboratory Results Laboratory Results WBC 8.00 K/ul (4.8-10.8) 04/02/22 07:57 RBC 5.17 M/uL (4.63-6.08) 04/02/22 07:57 Hgb 13.4 g/dl (14.0-18.0) L 04/02/22 07:57 Hct 41.7 % (40.1-51.0) 04/02/22 07:57 MCV 80.7 fL (80.0-100.0) 04/02/22 07:57 MCH 25.9 pg (25.0-34.0) 04/02/22 07:57 MCHC 32.1 g/dL (32.0-36.0) 04/02/22 07:57 RDW Std Deviation 57.2 fL (36.4-46.3) H 04/02/22 07:57 RDW Coeff of Luis 20.2 % (11.5-14.5) H 04/02/22 07:57 Plt Count 162 K/uL (130-400) 04/02/22 07:57 MPV 9.6 fL (9.4-12.4) 04/02/22 07:57 Immature Gran % (Auto) 0.5 % 04/02/22 07:57 Neut % (Auto) 54.6 % 04/02/22 07:57 Lymph % (Auto) 28.0 % 04/02/22 07:57 [place] % (Auto) 10.9 % 04/02/22 07:57 Eos % (Auto) 5.5 % 04/02/22 07:57 Baso % (Auto) 0.5 % 04/02/22 07:57 Neut # (Auto) 4.51 K/uL (1.4-6.5) 04/02/22 07:57 Lymph # (Auto) 2.31 K/uL (1.2-3.4) 04/02/22 07:57 [place] # (Auto) 0.90 K/uL (0.24-0.82) H 04/02/22 07:57 Eos # (Auto) 0.45 K/uL (0-0.50) 04/02/22 07:57 Baso # (Auto) 0.04 K/uL (0-0.2) 04/02/22 07:57 Immature Gran # (Auto) 0.04 K/uL (0.00-0.02) H 04/02/22 07:57 Anisocytosis Present 04/02/22 07:57 Sodium 134 mmol/L (136-145) L 04/02/22 07:57 Potassium 4.1 mmol/L (3.5-5.1) D 04/02/22 07:57 Chloride 99 mmol/L (98-107) 04/02/22 07:57 Carbon Dioxide 26 mmol/L (21-32) 04/02/22 07:57 Anion Gap 9 (3-11) 04/02/22 07:57 BUN 13 mg/dl (6-23) 04/02/22 07:57 Creatinine 0.71 mg/dl (0.6-1.4) 04/02/22 07:57 Est Cr Clr Drug Dosing 121.4 ml/min 04/02/22 07:57 Est GFR ( Amer) 120.7 ml/min 04/02/22 07:57 Est GFR (Non-Af Amer) 104.2 ml/min 04/02/22 07:57 BUN/Creatinine Ratio 18.3 (10-20) 04/02/22 07:57 Glucose 87 mg/dl (70-99(Fasting)) 04/02/22 07:57 Calcium 8.9 mg/dl (8.5-10.1) 04/02/22 07:57 Magnesium 1.9 mg/dl (1.7-2.4) 04/02/22 07:57 Total Bilirubin 0.6 mg/dl (0.2-1.0) 04/02/22 07:57 AST 25 U/L (13-39) 04/02/22 07:57 ALT 18 U/L (7-52) 04/02/22 07:57 Alkaline Phosphatase 73 U/L (34-104) 04/02/22 07:57 Total Protein 6.8 gm/dl (6.0-8.3) 04/02/22 07:57 Albumin 4.0 gm/dl (3.4-5.0) 04/02/22 07:57 Globulin 2.8 gm/dl (2.5-4.0) 04/02/22 07:57 Albumin/Globulin Ratio 1.4 (0.9-2) 04/02/22 07:57 Vitamin B12 335 pg/ml (180-914) 04/01/22 06:28 SARS-CoV-2, RNA, NAAT NEGATIVE (NEGATIVE) 03/31/22 07:00 (1) Alcohol intoxication Complication of substance-induced condition: with unspecified complication Qualified Code(s): F10.929 - Alcohol use, unspecified with intoxication, unspecified (2) Dementia Dementia type: associated with alcoholism Dementia behavioral disturbance: without behavioral disturbance Qualified Code(s): F10.27 - Alcohol dependence with alcohol-induced persisting dementia
[2022-04-03] MEDS: hydrOXYzine HCl 25 MG TAB PO PRN (01:08)
[2022-04-03] MEDS: GABAPENTIN 600 MG TAB PO SCH (01:08)
[2022-04-03] MEDS: ACETAMINOPHEN 325 MG TAB PO PRN ×3 (01:08→22:17)
[2022-04-03 05:54] LABS: Basophils # (auto) 0.04 K/uL (0-0.2); Basophils % (auto) 0.5 %; Eosinophils # (auto) 0.42 K/uL (0-0.50); Eosinophils % (auto) 4.9 %; Hematocrit (blood only) 35.4 % (40.1-51.0); Hemoglobin 11.7 g/dl (14.0-18.0); Immature Granulocytes # (auto) 0.03 K/uL (0.00-0.02); Immature Granulocytes % (auto) 0.4 %; Lymphocytes % (auto) 30.6 %; Mean Corpuscular Hemoglobin 26.3 pg (25.0-34.0); Mean Corpuscular Hgb Conc 33.1 g/dL (32.0-36.0); Mean Corpuscular Volume 79.6 fL (80.0-100.0); Mean Platelet Volume 9.4 fL (9.4-12.4); Monocytes # (auto) 0.89 K/uL (0.24-0.82); Monocytes % (auto) 10.5 %; Neutrophils # (auto) 4.53 K/uL (1.4-6.5); Neutrophils % (auto) 53.1 %; Platelet Count 163 K/uL (130-400); RDW Coefficient of Variation 20.1 % (11.5-14.5); RDW Standard Deviation 56.1 fL (36.4-46.3); Red Blood Count 4.45 M/uL (4.63-6.08); White Blood Count 8.51 K/ul (4.8-10.8)
[2022-04-03 06:18] LABS: Anisocytosis Present; Polychromasia 1+
[2022-04-03 06:28] LABS: Albumin Globulin Ratio 1.4 (0.9-2); Albumin Level 3.9 gm/dl (3.4-5.0); BUN Creatinine Ratio 15.9 (10-20); Bilirubin,Total 0.4 mg/dl (0.2-1.0); Calcium 8.8 mg/dl (8.5-10.1); Creatinine Clr Calc Pharmacy 136.9 ml/min; Est GFR (African American) 126.8 ml/min; Est GFR (Non-African American) 109.4 ml/min; Globulin 2.7 gm/dl (2.5-4.0); Magnesium 1.9 mg/dl (1.7-2.4); Potassium 3.7 mmol/L (3.5-5.1); Total Protein 6.6 gm/dl (6.0-8.3)
[2022-04-03] MEDS: POTASSIUM CHLORIDE PWD 20 MEQ PACK PO SCH (08:06)
[2022-04-03] MEDS: FOLIC ACID 1 MG TAB PO SCH (08:08)
[2022-04-03] MEDS: THIAMINE HCL 100 MG TAB PO SCH (08:08)
[2022-04-03] MEDS: MAGNESIUM OXIDE 400 MG TAB PO SCH ×2 (08:08→20:21)
[2022-04-03] MEDS: amLODIPine BESYLATE 5 MG TAB PO SCH (08:09)
[2022-04-03] MEDS: MULTIVITAMIN TAB PO SCH (08:09)
[2022-04-03] MEDS: CYANOCOBALAMIN (B-12) 500 MCG TABLET PO SCH (08:10)
[2022-04-03] MEDS: SODIUM CHLORIDE 1 GM TABLET PO SCH ×2 (08:12→20:21)
[2022-04-03] MEDS: ENOXAPARIN INJ 40 MG/0.4 ML SYR SQ SCH (08:13)
--- NOTE | 2022-04-03 12:56 | Hospitalist Progress Note ---
Date of Service April 03, 2022 Assessment & Plan (1) Alcohol intoxication: (2) Ambulatory dysfunction: (3) Frequent falls: (4) Alcohol abuse: (5) Chronic hyponatremia: (6) Dementia: Plan: This is a 56yo M with a PMH of alcoholism, recurrent falls and weakness and other medical problems listed below who returns after being discharged from the ED overnight. Alcohol intoxication Alcohol use disorder Etoh level 280 on admission Monitor for withdrawal, history of DTs on previous admissions Alcohol withdrawal protocol, gabapentin and PRN IV ativan Folic acid and Thiamine Frequent falls Generalized weakness Ambulatory dysfunction 2/2 chronic alcohol use, recent [facility] stay Fall precautions PT/OT consulted -recommended rehab; case management on board. Chronic hyponatremia 2/2 alcoholism. Is prescribed sodium chloride tablets BID. Na of 134 today. Fluid restriction of 1200ml. Daily BMP Vitamin B12 borderline deficient - Serum 335. Started on vitamin B12 supplement. Hypokalemia Replaced. Monitor with daily BMP History of thrombocytopenia 2/2 alcoholism Platelets 280 on admission Monitor while on VTE ppx History of esophageal stenosis Chopped soft diet, aspiration precautions DVT Ppx: Lovenox. Monitor platelets Code status: FULL PCP: Sarah Beth Dispo:Admitted to med/tele. PT OT recommended rehab. [employer] on board. Admission and Anticipated Discharge Date Admission Date: March 31, 2022 Subjective Patient seen and examined at bedside. He is comfortable; not in any distress. He wants to continue to work with physical therapy so that he can be independent and start to work again. Review of Systems Review of Systems: All systems reviewed & are unremarkable except as noted in Subjective Physical Exam Physical Exam: Gen: WD/WN, NAD, sitting in bed, A&Ox3, communicating appropriately. HEENT: Normocephalic, atraumatic, conjunctivae moist, sclerae anicteric, mucous membranes moist Lung: Clear to Auscultation bilaterally, no wheezes/rales/rhonchi Heart: Regular rate, regular rhythm, no murmurs, rubs, or gallops Abdomen: Soft, NT, ND +BS x 4 Extremities: no edema Skin: Warm, no rash Results & Data Results & Data ([facility]) Vital Signs (Past 12 Hours) Vital Signs Temp Pulse Pulse Resp BP Pulse Ox O2 Del Method 04/03/22 11:46 36.9 C 85 16 133/95 97 Room Air 04/03/22 08:14 36.8 C 86 16 138/87 94 Room Air 04/03/22 07:34 63 04/03/22 03:48 36.8 C 74 18 131/76 93 Room Air 04/03/22 03:31 90 Laboratory Results Laboratory Results WBC 8.51 K/ul (4.8-10.8) 04/03/22 05:39 RBC 4.45 M/uL (4.63-6.08) L 04/03/22 05:39 Hgb 11.7 g/dl (14.0-18.0) L 04/03/22 05:39 Hct 35.4 % (40.1-51.0) L 04/03/22 05:39 MCV 79.6 fL (80.0-100.0) L 04/03/22 05:39 MCH 26.3 pg (25.0-34.0) 04/03/22 05:39 MCHC 33.1 g/dL (32.0-36.0) 04/03/22 05:39 RDW Std Deviation 56.1 fL (36.4-46.3) H 04/03/22 05:39 RDW Coeff of Luis 20.1 % (11.5-14.5) H 04/03/22 05:39 Plt Count 163 K/uL (130-400) 04/03/22 05:39 MPV 9.4 fL (9.4-12.4) 04/03/22 05:39 Immature Gran % (Auto) 0.4 % 04/03/22 05:39 Neut % (Auto) 53.1 % 04/03/22 05:39 Lymph % (Auto) 30.6 % 04/03/22 05:39 [place] % (Auto) 10.5 % 04/03/22 05:39 Eos % (Auto) 4.9 % 04/03/22 05:39 Baso % (Auto) 0.5 % 04/03/22 05:39 Neut # (Auto) 4.53 K/uL (1.4-6.5) 04/03/22 05:39 Lymph # (Auto) 2.60 K/uL (1.2-3.4) 04/03/22 05:39 [place] # (Auto) 0.89 K/uL (0.24-0.82) H 04/03/22 05:39 Eos # (Auto) 0.42 K/uL (0-0.50) 04/03/22 05:39 Baso # (Auto) 0.04 K/uL (0-0.2) 04/03/22 05:39 Immature Gran # (Auto) 0.03 K/uL (0.00-0.02) H 04/03/22 05:39 Polychromasia 1+ 04/03/22 05:39 Anisocytosis Present 04/03/22 05:39 Sodium 134 mmol/L (136-145) L 04/03/22 05:39 Potassium 3.7 mmol/L (3.5-5.1) 04/03/22 05:39 Chloride 103 mmol/L (98-107) 04/03/22 05:39 Carbon Dioxide 24 mmol/L (21-32) 04/03/22 05:39 Anion Gap 7 (3-11) 04/03/22 05:39 BUN 10 mg/dl (6-23) 04/03/22 05:39 Creatinine 0.63 mg/dl (0.6-1.4) 04/03/22 05:39 Est Cr Clr Drug Dosing 136.9 ml/min 04/03/22 05:39 Est GFR ( Amer) 126.8 ml/min 04/03/22 05:39 Est GFR (Non-Af Amer) 109.4 ml/min 04/03/22 05:39 BUN/Creatinine Ratio 15.9 (10-20) 04/03/22 05:39 Glucose 84 mg/dl (70-99(Fasting)) 04/03/22 05:39 Calcium 8.8 mg/dl (8.5-10.1) 04/03/22 05:39 Magnesium 1.9 mg/dl (1.7-2.4) 04/03/22 05:39 Total Bilirubin 0.4 mg/dl (0.2-1.0) 04/03/22 05:39 AST 19 U/L (13-39) 04/03/22 05:39 ALT 14 U/L (7-52) 04/03/22 05:39 Alkaline Phosphatase 71 U/L (34-104) 04/03/22 05:39 Total Protein 6.6 gm/dl (6.0-8.3) 04/03/22 05:39 Albumin 3.9 gm/dl (3.4-5.0) 04/03/22 05:39 Globulin 2.7 gm/dl (2.5-4.0) 04/03/22 05:39 Albumin/Globulin Ratio 1.4 (0.9-2) 04/03/22 05:39 Vitamin B12 335 pg/ml (180-914) 04/01/22 06:28 SARS-CoV-2, RNA, NAAT NEGATIVE (NEGATIVE) 03/31/22 07:00 (1) Alcohol intoxication Complication of substance-induced condition: with unspecified complication Qualified Code(s): F10.929 - Alcohol use, unspecified with intoxication, unspecified (2) Dementia Dementia type: associated with alcoholism Dementia behavioral disturbance: without behavioral disturbance Qualified Code(s): F10.27 - Alcohol dependence with alcohol-induced persisting dementia
[2022-04-04] MEDS ORDERED: GABAPENTIN 600 MG TAB PO SCH (02:00)
[2022-04-04] MEDS: THIAMINE HCL 100 MG TAB PO SCH (08:22)
[2022-04-04] MEDS: ENOXAPARIN INJ 40 MG/0.4 ML SYR SQ SCH (08:22)
[2022-04-04] MEDS: FOLIC ACID 1 MG TAB PO SCH (08:23)
[2022-04-04] MEDS: POTASSIUM CHLORIDE PWD 20 MEQ PACK PO SCH (08:23)
[2022-04-04] MEDS: SODIUM CHLORIDE 1 GM TABLET PO SCH (08:23)
[2022-04-04] MEDS: amLODIPine BESYLATE 5 MG TAB PO SCH (08:23)
[2022-04-04] MEDS: MAGNESIUM OXIDE 400 MG TAB PO SCH (08:23)
[2022-04-04] MEDS: CYANOCOBALAMIN (B-12) 500 MCG TABLET PO SCH (08:24)
[2022-04-04] MEDS: MULTIVITAMIN TAB PO SCH (08:24)
[2022-04-04 08:35] LABS: Albumin Globulin Ratio 1.5 (0.9-2); BUN Creatinine Ratio 9.8 (10-20); Bilirubin,Total 0.5 mg/dl (0.2-1.0); Calcium 8.9 mg/dl (8.5-10.1); Creatinine Clr Calc Pharmacy 141.4 ml/min; Est GFR (African American) 128.5 ml/min; Est GFR (Non-African American) 110.9 ml/min; Globulin 2.6 gm/dl (2.5-4.0); Magnesium 1.9 mg/dl (1.7-2.4); Potassium 3.7 mmol/L (3.5-5.1); Total Protein 6.6 gm/dl (6.0-8.3)
[2022-04-04 09:19] LABS: Basophils # (auto) 0.04 K/uL (0-0.2); Basophils % (auto) 0.6 %; Eosinophils # (auto) 0.43 K/uL (0-0.50); Eosinophils % (auto) 6.2 %; Hematocrit (blood only) 33.8 % (40.1-51.0); Hemoglobin 11.2 g/dl (14.0-18.0); Immature Granulocytes # (auto) 0.04 K/uL (0.00-0.02); Immature Granulocytes % (auto) 0.6 %; Lymphocytes # (auto) 2.04 K/uL (1.2-3.4); Lymphocytes % (auto) 29.4 %; Mean Corpuscular Hemoglobin 26.3 pg (25.0-34.0); Mean Corpuscular Hgb Conc 33.1 g/dL (32.0-36.0); Mean Corpuscular Volume 79.3 fL (80.0-100.0); Mean Platelet Volume 9.4 fL (9.4-12.4); Monocytes # (auto) 0.88 K/uL (0.24-0.82); Monocytes % (auto) 12.7 %; Neutrophils # (auto) 3.51 K/uL (1.4-6.5); Neutrophils % (auto) 50.5 %; Platelet Count 171 K/uL (130-400); RDW Coefficient of Variation 20.2 % (11.5-14.5); RDW Standard Deviation 55.7 fL (36.4-46.3); Red Blood Count 4.26 M/uL (4.63-6.08); White Blood Count 6.94 K/ul (4.8-10.8)
[2022-04-04 09:20] LABS: Anisocytosis Present; Polychromasia 1+
[2022-04-04] MEDS: ACETAMINOPHEN 325 MG TAB PO PRN (10:04)
--- NOTE | 2022-04-04 16:48 | Discharge Summary ---
Date of Service April 04, 2022 Admission HPI Per Admitting Provider This is a 56yo M with a PMH of alcoholism, recurrent falls and weakness and other medical problems listed below who returns early this morning 15 minutes after being discharged from the ED overnight. Feels too unsteady to go home. Initially presented seemingly was leaving his apartment to get something a go to the liquor store when he felt weak and fell to the ground. Denies any head trauma or loss of consciousness. No significant pain but weak and unable to get up on his own. Denies any significant pain. Intermittent nausea. No fever, chills, chest pain or shortness of breath. No abdominal pain or vomiting. Reports urinating without issue. Bowel movements at baseline. Poor historian in setting of dementia and chronic alcohol use. Was given some Ativan in the ED as he was very anxious and had some mild tremulousness. Chronic issues with alcoholism with recent admission and discharged to [facility]. History of chronic ambulatory dysfunction given long-term alcohol abuse and possible c erebellar issues 2/2 alcohol abuse. Labs reviewed from overnight ED encounters. Admission Exam Per Admitting Provider Constitutional: Awake, alert and oriented to time place and person. Appears to be intoxicated. Head: Normocephalic, Atraumatic Eyes: PERRL, conjunctivae normal, anicteric sclerae ENMT: external ear and nose normal, oropharynx normal Neck: trachea midline, no thyromegaly normal visual inspection Respiratory: Bilateral vesicular breath sound Cardiovascular: RRR, no murmur, no edema Vessels: no JVD or carotid bruit Chest: normal inspection of chest Abdomen: normal bowel sounds, soft, nontender, no hepatosplenomegaly Musculoskeletal: no cyanosis or clubbing, extremities motor strength 5/5 Skin: no rashes, warm and dry normal turgor Neurologic: PERRL, EOMI, accommodation nl, no face palsy, no dysarthria CN's II- XI intact bilaterally and moves all extremities. Finger-nose test normal Psychiatric: A+Ox3, euthymic affect Lymphatic: no cervical or axillary lymphadenopathy : deferred Principal Diagnosis Alcohol intoxication Alcohol use disorder Frequent falls Generalized weakness Ambulatory dysfunction Discharge Exam Gen: WD/WN, NAD, sitting in bed, A&Ox3, communicating appropriately. HEENT: Normocephalic, atraumatic, conjunctivae moist, sclerae anicteric, mucous membranes moist Lung: Clear to Auscultation bilaterally, no wheezes/rales/rhonchi Heart: Regular rate, regular rhythm, no murmurs, rubs, or gallops Abdomen: Soft, NT, ND +BS x 4 Extremities: no edema Skin: Warm, no rash Discharge Data Allergies Allergy/AdvReac Type Severity Reaction Status Date / Time hydralazine AdvReac Intermediate rapid drop Verified 03/31/22 11:37 in BP/Vomiting Penicillins AdvReac Mild TIRED Verified 03/30/22 20:55 Consultations 03/31/22 06:56 ED Decision to Admit Stat Hospital Course (1) Alcohol intoxication: (2) Ambulatory dysfunction: (3) Frequent falls: (4) Alcohol abuse: (5) Chronic hyponatremia: (6) Dementia: Plan Patient is a 56-year-old male with history of chronic alcoholism and ambulatory dysfunction likely secondary to alcoholism resented to the ED with ambulatory dysfunction Last admission was from 03/02-03/09 when he was admitted for similar complaints. He was discharged to [facility]. Patient was discharged home from the rehab on 03/20. He says he was doing fine since the discharge and had no issues with his ambulation. However, he started to have issues with ambulation few days prior to the admission. He denies drinking alcohol recently but he appeared to be intoxicated. His blood alcohol level was found to be 280 on admission. He denies any weakness/numbness of any specific body part, dizziness, visual changes, abdominal pain or urinary symptoms. Patient was admitted for alcohol intoxication and was monitored for withdrawal. He was placed on Ativan and gabapentin. PT OT evaluation was done and patient was recommended to go to rehab. Patient was accepted at [facility] and was discharged. He was instructed to follow-up with his PCP and maintain alcohol abstinence Total Time Total Time Spent Total Time Spent (In Minutes): 35 Total Time Includes: Examination of the Patient, Discharge Planning, Medication Reconciliation, Communication With Other Providers and Other Discharge Plan Discharge Items Patient Disposition: Transfer Inpatient Rehab Fac Reason For Visit: WEAKNESS, ALCOHOL WITHDRAWL Discharge Diagnosis: Alcohol intoxication Ambulatory dysfunction Activity: Resume your previous activity Non-emergency contact: Primary Care Provider Call non-emergency contact if: you have any medication questions and your symptoms worsen Follow-up/Referrals: Denis Burleson DO [Primary Care Provider] - Diet: Regular Fluids: 1800ml (7 cups) Addtl Attending Provider Instructions: You were admitted to the hospital for alcohol intoxication and ambulatory dysfunction. Please continue to take your medication as prescribed. Vitamin B12 1000 mcg has been added to your medication. Pending Studies at Discharge: No Stand-Alone Forms: My [facility] Skilled Items Patient informed of condition?: Yes DNR: No Discharge Level of Care: Acute rehab Communicable Disease: No Discharge Prognosis: Stable Lines: None Urinary Catheter: No Medications and DC Order Prescriptions: New cyanocobalamin (vitamin B-12) 500 mcg Tablet 1,000 mcg PO QAM Qty: 30 0RF Continued riboflavin (vitamin B2) [Vitamin B-2] 50 mg Tablet 0 mg PO DAILY Rx Instructions: PT DOESN'T KNOW STRENGTH multivitamin with folic acid [Daily-Ifeanyi (with folic acid)] 400 mcg Tablet 1 tab PO QAM Qty: 30 0RF folic acid 1 mg Tablet 1 mg PO QAM Qty: 30 0RF thiamine HCl (vitamin B1) [Vitamin B-1] 100 mg tablet 100 mg PO DAILY amlodipine 10 mg tablet 10 mg PO DAILY sodium chloride 1 gram tablet 1 g PO BID magnesium oxide 400 mg (241.3 mg magnesium) tablet 400 mg PO BID hydroxyzine HCl 25 mg tablet 25 mg PO Q6 PRN (Reason: Itching) potassium chloride 20 mEq tablet extended release 20 meq PO DAILY Discharge Orders: Discharge Order (Routine); Ordered 04/04/22 Ordered By: Jose A Cardona Admission Data Admit Date/Time: 03/31/22 08:05 Attending Provider: Jose A Cardona Admit Provider: Jose A Cardona Primary Care Provider: Denis Burleson Other Providers: Marcus Dalton ; Hortencia Gonzalez ; [facility]
--- NOTE | 2022-04-12 08:17 | Coding Query ---
CODING QUERY To promote full compliance with coding requirements relating to patient care, provider participation is requested in all cases of probation worker uncertainty. Please assist us with the question(s) below: Coding Question(s): Pt discharged from ED recently readmitted with alcohol dependence /intoxicatoin and ambulatory dysfunction. 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 Please document, if known or suspected, the etiology of the ambulatory problems. Thanks for your help. Uli Clarke [facility] Physician's Response(s): Principal Diagnosis: "that condition established after study, to be chiefly responsible for occasioning the admission of the patient to the hospital for care." Co-Existing Principal Diagnosis: "when two or more diagnoses equally meet the criteria for principal diagnosis as determined by the circumstances of admission, diagnostic work up, and/or therapy provided, and the Alphabetic Index, Tabular List, or another coding guideline does not provide sequencing direction, any one of the diagnoses may be sequenced first." "When the physician has documented what appears to be a current diagnosis in the body of the record, but has not included the diagnosis in the final diagnostic statement, the physician should be asked whether the diagnosis should be added." (Source [facility]oding [facility] 2 QTR90. p3-4) LUIS EDUARDO
== END 2022-04-04 14:00 | DRG 897 ==
LOC: ED 06:47 → EDINP 08:05 → 2N 11:46

== ENCOUNTER 2022-10-02 13:31 | Inpatient (IN) ==
[2022-10-02] MEDS ORDERED: SODIUM CHLORIDE 0.9% 1000ML 1,000 ML IV ONE (14:10)
[2022-10-02 14:12] LABS: Basophils # (auto) 0.03 K/uL (0-0.2); Basophils % (auto) 0.5 %; Eosinophils # (auto) 0.03 K/uL (0-0.50); Eosinophils % (auto) 0.5 %; Hematocrit (blood only) 41.2 % (42.0-52.0); Hemoglobin 14.4 g/dl (14.0-18.0); Immature Granulocytes # (auto) 0.03 K/uL (0.01-0.20); Immature Granulocytes % (auto) 0.5 %; Lymphocytes # (auto) 0.89 K/uL (1.2-3.4); Lymphocytes % (auto) 15.9 %; Mean Corpuscular Hemoglobin 28.5 pg (25.0-34.0); Mean Corpuscular Volume 81.4 fL (80.0-100.0); Mean Platelet Volume 9.4 fL (9.4-12.4); Monocytes # (auto) 1.12 K/uL (0.11-0.59); Monocytes % (auto) 20.1 %; Neutrophils # (auto) 3.48 K/uL (1.40-6.50); Neutrophils % (auto) 62.5 %; Platelet Count 151 K/uL (130-400); RDW Coefficient of Variation 19.7 % (11.5-14.5); RDW Standard Deviation 56.6 fL (36.4-46.3); Red Blood Count 5.06 M/uL (4.70-6.10); White Blood Count 5.58 K/ul (4.8-10.8)
--- NOTE | 2022-10-02 14:15 | Emergency Department Note ---
Impression & Plan Weakness, Anemia ED Provider Note NAME: ANG MEDEL AGE: 57 SEX: M : 1965 ARRIVES VIA: Ambulance INFORMANT: Patient ED PROVIDER(S): Lewis Braswell DO CHIEF COMPLAINT: Unable to ambulate HPI: Patient is a 57-year-old male with a past medical history of alcohol abuse, ataxia, dementia and frequent falls who presents to the ER for weakness. He notes he has been struggling with weakness in the bilateral lower extremities for several years. Over the past several days he has been unable to get up and ambulate. [facility] met with him and feels as though he is unsafe at home per report from EMS. Patient denies any headache or neck pain. No chest pain or shortness of breath. No belly pain, nausea, vomiting, or diarrhea. No dysuria, urgency, or frequency. No other exacerbating or remitting factors. PAST MEDICAL HISTORY:See Below PAST SURGICAL HISTORY:See Below FAMILY HISTORY:See Below SOCIAL HISTORY:See Below HOME MEDICATIONS:See Below ALLERGIES:See Below VITALS:See Below PHYSICAL EXAMINATION: GENERAL: Sitting up in bed, alert, well appearing, well nourished, no distress, non-toxic EYE EXAM: normal conjunctiva. OROPHARYNX: mucous membranes are moist NECK: supple, no nuchal rigidity, no adenopathy, non-tender LUNGS: Clear to auscultation. Normal chest wall mechanics HEART: no murmurs, S1 normal and S2 normal ABDOMEN: abdomen soft, non-tender, normo-active bowel sounds, no masses, no rebound or guarding. UPPER EXTREMITIES: upper extremities are grossly normal. LOWER EXTREMITIES: Flexion-extension bilateral hips knees ankles and EHL intact and equal bilateral NEURO EXAM: Normal sensorium, cranial nerves II-XII grossly intact, normal speech, no gross weakness of arms, no gross weakness of legs. MEDICAL DECISION MAKING: Patient is a 57-year-old male who presents ER for above-stated complaint. IV was established blood work is obtained. Labs show no significant leukocytosis or anemia. BMP with mild hypokalemia 3.2. LFTs bilirubin and lipase was unremarkable. No urinary symptoms but UA did have nitrites although there were bilirubin there which is likely the cause of the nitrites. There is no white cells to suggest infection. Was contaminated. CT head was negative. Patient was given IV fluids. Updated bedside. Discussed with the hospitalist for further evaluation management and treatment. Did discuss with care managers who had previously contacted [facility] who notes that they were concerned as he was unable to get around at home. They did want him placed and is why they brought him in. Triage Nursing notes reviewed. Limited review of prior medical records performed Vital Signs: reviewed and remarkable for no significant abnormalities Differential diagnosis: Infection, dehydration, metabolic abnormality, hypo/hyperglycemia, electrolyte disturbance, anemia, hypoxia, cardiac sources, intracerebral event, toxicologic, neurologic, as well as other pathologies. ER treatment provided: See below Diagnostics interpreted by me include EKG and cardiac monitoring as listed below: -Cardiac Monitoring: An order was placed for continuous cardiac monitoring. The monitor shows a rate of 92 with sinus rhythm. -ECG: Sinus rhythm rate of 73 T wave inversion in the inferior leads Septal Q waves T wave inversion and ST depressions V3 through V6 QTc 537 EKG is significantly changed from previous -Laboratory studies:Interpreted by me as stated above in MDM and shown below. Imaging studies: Xrays: As interpreted by me:none CTs show: CT head per my review shows no obvious bleed CT head per radiology was unremarkable Consultation(s): Discussed with hospitalist for further evaluation management and treat Procedures:none Critical Care: None Past Med/Surg History Medical History Adult failure to thrive Alcohol use disorder Ambulatory dysfunction Anemia Anxiety Aortic root dilation Ataxia Bunion of unspecified foot Chronic hyponatremia Dementia DTs (delirium tremens) Esophageal tear Flat foot, acquired Frequent falls Generalized atherosclerosis Generalized weakness Hammer toe, acquired unspecified Hearing deficit Hereditary and idiopathic neuropathy, unspecified History of COVID-19 ? 07/17/20 per records History of esophageal dilatation last done 04/16/21 @ [facility] History of esophageal stricture Hx of fracture of hip Hypertension Hypokalemia Hypomagnesemia residential resident [facility] of [facility] 2500 cc fluid daily restriction was noted in records Sensorineural hearing loss (SNHL) of both ears Subgaleal hemorrhage Surgical History History of esophagogastroduodenoscopy (EGD) (~04/16/21) History of hip surgery s/p fall and fx Family History Other Cancer Hypertension Denies family history of Myocardial infarction Stroke Social History Smoking Status: Former smoker Tobacco Type: Cigarettes Second Hand Exposure: No; Hx Alcohol Use: Yes Alcohol type: beer Alcohol Intake Frequency Comment: 7-10 beers a day, uncertain which kind of beer Hx Substance Use: No Preferred Language: Faroese Communication Ability: Effective Visual Impairment: No Limitations Hearing Ability: Hard of Hearing Radiation Oncologist Required: No Beliefs That Will Affect Care: None marital status: Single Current Living Situation: Alone Current Living Situation Comment: [address]artment Feels Safe at Home: No Is there a partner from a previous relationship who is making you feel unsafe now?: No Safety Concerns: Afraid for Self Assistive Devices: Glasses and Walker Allergies Allergies Allergy/AdvReac Type Severity Reaction Status Date / Time hydralazine AdvReac Intermediate rapid drop Verified 03/31/22 11:37 in BP/Vomiting Penicillins AdvReac Mild TIRED Verified 03/30/22 20:55 Home Meds Home Medications Medication Instructions Recorded Confirmed thiamine HCl (vitamin B1) 100 mg 100 mg PO DAILY 02/02/22 10/02/22 tablet (Vitamin B-1) riboflavin (vitamin B2) 50 mg 0 mg PO DAILY 02/11/22 10/02/22 tablet (Vitamin B-2) amlodipine 10 mg tablet 10 mg PO DAILY 03/30/22 10/02/22 hydroxyzine HCl 25 mg tablet 25 mg PO Q6 PRN Itching 03/30/22 10/02/22 magnesium oxide 400 mg (241.3 mg 400 mg PO BID 03/30/22 10/02/22 magnesium) tablet potassium chloride 20 mEq 20 meq PO DAILY 03/30/22 10/02/22 tablet,extended release sodium chloride 1 gram tablet 1 g PO BID 03/30/22 10/02/22 Previous Rx's Medication Instructions Recorded multivitamin with folic acid 400 1 tab PO QAM #30 tabs 10/29/21 mcg tablet (Daily-Ifeanyi (with folic acid)) folic acid 1 mg tablet 1 mg PO QAM #30 tabs 12/31/21 cyanocobalamin (vitamin B-12) 500 1,000 mcg PO QAM #30 tabs 09/19/22 mcg tablet Results & Data (ED) Vital Signs Vital Signs - 24 hr 10/02/22 13:57 10/02/22 13:57 10/02/22 13:57 Temperature 36.7 C Temperature Source Oral Oral Pulse Rate 92 H Respiratory Rate 18 Respiratory Effort / Characteristics Non-Labored Respiratory Depth Normal Blood Pressure 183/113 H Blood Pressure Mean 136 Blood Pressure Position Sitting Pulse Oximetry 98 Oxygen Delivery Method Room Air Room Air Sepsis Recent Fever Within 48 Hours No Sepsis New/Unexplained Change in Mental Status No Sepsis Action Taken by Nursing No Action Required Laboratory Data 10/02/22 13:50 10/02/22 13:50 Lab Results 10/02/22 10/02/22 10/02/22 Range/Units 13:50 13:50 14:33 WBC 5.58 (4.8-10.8) K/ul RBC 5.06 (4.70-6.10) M/uL Hgb 14.4 (14.0-18.0) g/dl Hct 41.2 L (42.0-52.0) % MCV 81.4 (80.0-100.0) fL MCH 28.5 (25.0-34.0) pg MCHC 35.0 (32.0-36.0) g/dL RDW Std Deviation 56.6 H (36.4-46.3) fL RDW Coeff of Luis 19.7 H (11.5-14.5) % Plt Count 151 (130-400) K/uL MPV 9.4 (9.4-12.4) fL Immature Gran % (Auto) 0.5 % Neut % (Auto) 62.5 % Lymph % (Auto) 15.9 % [place] % (Auto) 20.1 % Eos % (Auto) 0.5 % Baso % (Auto) 0.5 % Neut # (Auto) 3.48 (1.40-6.50) K/uL Lymph # (Auto) 0.89 L (1.2-3.4) K/uL [place] # (Auto) 1.12 H (0.11-0.59) K/uL Eos # (Auto) 0.03 (0-0.50) K/uL Baso # (Auto) 0.03 (0-0.2) K/uL Immature Gran # (Auto) 0.03 (0.01-0.20) K/uL Sodium 131 L (136-145) mmol/L Potassium 3.2 L (3.5-5.1) mmol/L Chloride 93 L (98-107) mmol/L Carbon Dioxide 22 (21-32) mmol/L Anion Gap 16 H (3-11) BUN 9 (6-23) mg/dl Creatinine 0.68 (0.6-1.4) mg/dl Est Cr Clr Drug Dosing 116.7 ml/min Est GFR ( Amer) 122.0 ml/min Est GFR (Non-Af Amer) 105.3 ml/min BUN/Creatinine Ratio 13.2 (10-20) Glucose 94 (70-99(Fasting)) mg/dl Calcium 9.4 (8.5-10.1) mg/dl Total Bilirubin 1.3 H (0.2-1.0) mg/dl AST 37 (13-39) U/L ALT 18 (7-52) U/L Alkaline Phosphatase 97 (34-104) U/L Total Protein 8.4 H (6.0-8.3) gm/dl Albumin 4.7 (3.4-5.0) gm/dl Globulin 3.7 (2.5-4.0) gm/dl Albumin/Globulin Ratio 1.3 (0.9-2) Lipase 36 (11-82) U/L SARS-CoV-2, RNA, NAAT NEGATIVE (NEGATIVE) Administered Medications Ceftriaxone Sodium 2,000 mg/ (Dextrose) 70 mls @ 100 mls/hr IV Q24H YOMAIRA; Courtney col Stop: 10/12/22 17:59 Last Admin: 10/02/22 17:55 Dose: 100 mls/hr Documented By: ELADIO Discontinued Medications Gabapentin (Gabapentin 600 Mg Tab) 1,200 mg PO NOW ONE Stop: 10/02/22 18:01 Last Admin: 10/02/22 18:02 Dose: 1,200 mg Documented By: ELADIO Sodium Chloride (Nss 1000ml) 1,000 mls @ 999 mls/hr IV .Q1H1M ONE Stop: 10/02/22 15:10 Last Infusion: 10/02/22 16:24 Dose: 0 mls/hr Documented By: Admin: 10/02/22 15:12 Dose: 999 mls/hr Documented By: IFRAH Labetalol HCl (Labetalol Hcl Iv 5 Mg/Ml 20ml) 10 mg IV NOW STA Stop: 10/02/22 17:55 Last Admin: 10/02/22 18:02 Dose: Not Given Documented By: [facility] Potassium Chloride (Potassium Chloride 10 Meq Tabcr) 40 meq PO NOW STA Stop: 10/02/22 15:04 Last Admin: 10/02/22 15:21 Dose: Not Given Documented By: [facility] Potassium Chloride (Potassium Chloride 20 Meq/15 Ml Udc) 40 meq PO NOW STA Stop: 10/02/22 15:15 Last Admin: 10/02/22 15:17 Dose: 40 meq Documented By: [facility] Potassium Chloride (Potassium Chloride Crtab 20 Meq Tabcr) 20 meq PO DAILY YOMAIRA Stop: 11/01/22 17:10 Last Admin: 10/02/22 17:57 Dose: Not Given Documented By: [facility] Imaging Data Radiologist's Impression: Head CT 10/02/22 14:[address] DOSE: 614.27 mGy.cm HISTORY: fall TECHNIQUE: Multiaxial CT images of the head were performed without the use of intravenous contrast. Automated exposure control was utilized for this study. A dose lowering technique was utilized adhering to the principles of ALARA. Comparison: Head CT 03/30/2022. Findings: The paranasal sinuses and mastoid air cells are clear. The calvarium and skull base are intact. There is no mass, hematoma, midline shift, acute infarct. White matter hypodensity is nonspecific but suggestive of microvascular ischemic change. The ventricles and sulci demonstrate mild age-related involutional changes. 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 This remains unchanged. Impression: No significant change compared to the prior study. No acute intracranial abnormality. ACT 112: Negative or not required by law. Electronically signed by: Jigar Cassidy M.D. 10/02/2022 2:30 PM Discharge Plan Visit Data Chief Complaint: Leg Weakness, Bilateral Stated Complaint: WEAKNESS, UNABLE TO AMBULATE, PLACEMENT EVAL ED Provider: Lewis Braswell Discharge Problem: Weakness, Anemia Patient Disposition: Admitted As Inpatient Discharge Instructions Interventions: ED Discharge Assessment Last Done: 10/02/22 16:31
[2022-10-02 14:23] LABS: Albumin Globulin Ratio 1.3 (0.9-2); Albumin Level 4.7 gm/dl (3.4-5.0); BUN Creatinine Ratio 13.2 (10-20); Bilirubin,Total 1.3 mg/dl (0.2-1.0); Calcium 9.4 mg/dl (8.5-10.1); Creatinine Clr Calc Pharmacy 116.7 ml/min; Est GFR (Non-African American) 105.3 ml/min; Globulin 3.7 gm/dl (2.5-4.0); Potassium 3.2 mmol/L (3.5-5.1); Total Protein 8.4 gm/dl (6.0-8.3)
--- NOTE | 2022-10-02 14:32 | CT Scan Report ---
HEAD CT NONCONTRAST CT DOSE: 614.27 mGy.cm HISTORY: fall TECHNIQUE: Multiaxial CT images of the head were performed without the use of intravenous contrast. A utomated exposure control was utilized for this study. A dose lowering technique was utilized adheri ng to the principles of ALARA. Comparison: Head CT 03/30/2022. Findings: The paranasal sinuses and mastoid air cells are clear. The calvarium and skull base are int act. There is no mass, hematoma, midline shift, acute infarct. White matter hypodensity is nonspecifi c but suggestive of microvascular ischemic change. The ventricles and sulci demonstrate mild age-rela chidi involutional changes. 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 Thi s remains unchanged. Impression: No significant change compared to the prior study. No acute intracranial abnormality. ACT 112: Negative or not required by law. Electronically signed by: Jigar Cassidy M.D. 10/02/2022 2:30 PM
[2022-10-02] MEDS ORDERED: POTASSIUM CHLORIDE 10 MEQ TABCR PO STA (15:03)
[2022-10-02] MEDS ORDERED: POTASSIUM CHLORIDE 20 MEQ/15 ML UDC PO STA ×2 (15:14→17:57)
[2022-10-02] MEDS ORDERED: ONDANSETRON INJ 2 MG/ML 2 ML VIAL IV PRN (15:27)
[2022-10-02] MEDS ORDERED: MAGNESIUM HYDROXIDE SUSP 30 ML UDC PO PRN (15:27)
[2022-10-02] MEDS ORDERED: ALUMINUM/MAGNESIUM SUSP 30 ML UDC PO PRN (15:27)
[2022-10-02] MEDS ORDERED: POLYETHYLENE (MIRALAX) 17 GM PACK PO PRN (15:27)
--- NOTE | 2022-10-02 16:09 | History & Physical Report ---
Date of Service October 02, 2022 Assessment & Plan (1) Alcohol abuse: Plan This is a 56yo M with a PMH of Chronic alcohol abuse, recurrent falls and weakness and other medical problems listed below presented to the ED 10/02 with [facility] as he was deemed unsafe at home. He is being managed for the following: Chronic alcohol abuse Recurrent falls Ambulatory dysfunction BLE weakness/generalized weakness Unsafe at home per [facility] Noncompliance Patient reports he drinks 5-6 beers a day. Patient counseled against drinking alcohol in future. Monitor for withdrawal, history of DTs on previous admissions Alcohol withdrawal protocol, gabapentin and PRN ativan. Banana bag, iv thiamine and folic acid. Folic acid and Thiamine. PT/OT. CM to assist w/ DC planning. Fall precautions. Head CT at presentation w/ no acute findings. Maintain aspiration precaution. Sent drug screen. Consider speech eval if w/ swallowing problems. Acute UTI: burning while passing urine on presentation, will send UA /UCx. Rocephin for now. Hypertensive Urgency: BP elevated at presentation; non compliance to home meds. Resume home meds, prn meds ordered, Titrate bp meds as able. Chronic hyponatremia 2/2 alcoholism. Is prescribed sodium chloride tablets BID. Na of 131 today. Fluid restriction of 1500ml. Daily BMP Vitamin B12 deficient- c/w home vitamin B12 supplement. Hypokalemia: Replaced. Monitor with daily BMP History of thrombocytopenia: 2/2 alcoholism. Plt 151 on admission. Heparin SQ History of Present Illness Chief Complaint: Legs are weak per pt/unsafe at home per [facility] Primary Care Provider: Denis Burleson DO 57-year-old man with chronic alcohol abuse despite multiple counseling with adverse effects, recurrent falls, BLE weakness, Unsteady gait presented to the ED 10/02 with [facility] as he was deemed unsafe at home. Patient is very hard of hearing and hence some of the history were taken from the chart review and from emergency physician along with possible history from the patient himself. Upon entering the room, patient reports that he has weak legs and was asking if anything can be done about it. He also reports that except for his weak legs he does not have any other problems. Upon further asking, he reports he has not eaten since last 2 days because he cannot walk and hence he cannot make food for himself. He just lays in the couch per him. He also reports having burning sensation while passing urine. He reports falls and weak legs. Patient again counseled regarding alcohol cessation or else he will continue to worsen with regard to his balance, patient has been counselled as such multiple times in the past as well. Patient reports he continues to drink, 5-6 beers a day. Patient reports he is hungry and would like to eat. Patient appears that he is not taking his medications as prescribed. He does not follow-up with his primary care physician as an outpatient. Allergies Allergy/AdvReac Type Severity Reaction Status Date / Time hydralazine AdvReac Intermediate rapid drop Verified 03/31/22 11:37 in BP/Vomiting Penicillins AdvReac Mild TIRED Verified 03/30/22 20:55 Home Medications Medication Instructions Recorded Confirmed Type multivitamin with folic acid 400 1 tab PO QAM #30 tabs 10/29/21 10/02/22 Rx mcg tablet (Daily-Ifeanyi (with folic acid)) folic acid 1 mg tablet 1 mg PO QAM #30 tabs 12/31/21 10/02/22 Rx thiamine HCl (vitamin B1) 100 mg 100 mg PO DAILY 02/02/22 10/02/22 History tablet (Vitamin B-1) riboflavin (vitamin B2) 50 mg 0 mg PO DAILY 02/11/22 10/02/22 History tablet (Vitamin B-2) amlodipine 10 mg tablet 10 mg PO DAILY 03/30/22 10/02/22 History hydroxyzine HCl 25 mg tablet 25 mg PO Q6 PRN Itching 03/30/22 10/02/22 History magnesium oxide 400 mg (241.3 mg 400 mg PO BID 03/30/22 10/02/22 History magnesium) tablet potassium chloride 20 mEq 20 meq PO DAILY 03/30/22 10/02/22 History tablet,extended release sodium chloride 1 gram tablet 1 g PO BID 03/30/22 10/02/22 History cyanocobalamin (vitamin B-12) 500 1,000 mcg PO QAM #30 tabs 04/04/22 10/02/22 Rx mcg tablet Past Med/Surg History Medical History Adult failure to thrive Alcohol use disorder Ambulatory dysfunction Anemia Anxiety Aortic root dilation Ataxia Bunion of unspecified foot Chronic hyponatremia Dementia DTs (delirium tremens) Esophageal tear Flat foot, acquired Frequent falls Generalized atherosclerosis Generalized weakness Hammer toe, acquired unspecified Hearing deficit Hereditary and idiopathic neuropathy, unspecified History of COVID-19 ? 07/17/20 per records History of esophageal dilatation last done 04/16/21 @ [facility] History of esophageal stricture Hx of fracture of hip Hypertension Hypokalemia Hypomagnesemia [facility] resident [facility] 2500 cc fluid daily restriction was noted in records Sensorineural hearing loss (SNHL) of both ears Subgaleal hemorrhage Surgical History History of esophagogastroduodenoscopy (EGD) (~04/16/21) History of hip surgery s/p fall and fx Family History Other Cancer Hypertension Denies family history of Myocardial infarction Stroke Social History Smoking Status: Former smoker Tobacco Type: Cigarettes Second Hand Exposure: No; Hx Alcohol Use: Yes Alcohol type: beer Alcohol Intake Frequency Comment: 7-10 beers a day, uncertain which kind of beer Hx Substance Use: No Preferred Language: Italian Communication Ability: Effective Visual Impairment: No Limitations Hearing Ability: Hard of Hearing Fur Farmer Required: No Beliefs That Will Affect Care: None marital status: Single Current Living Situation: Alone Current Living Situation Comment: [address] Appartment Feels Safe at Home: No Is there a partner from a previous relationship who is making you feel unsafe now?: No Safety Concerns: Afraid for Self Assistive Devices: Glasses and Walker Review of Systems Review of Systems: Negative otherwise mentioned in HPI. Physical Exam Physical Exam: GENERAL: Alert and oriented x3. NAD, on RA. Appears older than stated age/weak/frail/chronically ill. HEENT: No pallor, no icterus. Pupils equal, round and reactive to light. Oral mucosa moist. NECK: No JVD, no neck masses. HEART: S1 and S2 heard. Regular rate and rhythm. No murmur, no gallop. RESPIRATORY SYSTEM: Normal AP diameter. No accessory muscle use. No wheezing, no crackles. ABDOMEN: Soft, bowel sounds present, nontender, no distention. CENTRAL NERVOUS SYSTEM: No facial droop. Speech is clear. Obeys simple commands. Moves extremities. EXTREMITIES: No edema, no erythema seen. Results & Data Results & Data Vital Signs (Past 12 Hours) Vital Signs Temp Pulse Resp BP Pulse Ox O2 Del Method 10/02/22 16:06 89 18 174/110 H 98 Room Air 10/02/22 13:57 Room Air 10/02/22 13:57 36.7 C 92 H 18 183/113 H 98 Room Air Code Status & VTE Plan VTE Prophylaxis Plan VTE Prophylaxis will be ordered: Yes
[2022-10-02] MEDS ORDERED: Ativan PO Alcohol Withdrawal--Active Protocol PO PRN (16:23)
[2022-10-02] MEDS ORDERED: GABAPENTIN 1200MG ALCOHOL WITHDRAWAL LOAD PO STA (16:23)
[2022-10-02] MEDS ORDERED: LORazepam 1 MG TAB PO PRN ×2 (16:23)
[2022-10-02 16:29] LABS: Appearance Urine Clear (Clear); Bacteria Urine Automated Negative (Negative); Blood Urine Negative (Negative); Color Urine Orange; Epithelial Cell Urine Auto 20-30 /lpf (0-5); Glucose Urine UA Negative (Negative); Ketones Urine 3+ (Negative); Leukocyte Esterase Urine Trace (Negative); Nitrite Urine Positive (Negative); RBC Urine Automated 0-4 /hpf (0-4); Specific Gravity Urine 1.028 (1.000-1.030); Urobilinogen Urine Negative (Negative)
[2022-10-02 16:50] LABS: Bilirubin Urine 1+ (Negative); Protein Urine 3+ (Negative)
[2022-10-02] MEDS ORDERED: POTASSIUM CHLORIDE CRTAB 20 MEQ TABCR PO SCH (17:11)
[2022-10-02] MEDS ORDERED: hydrOXYzine HCl 25 MG TAB PO PRN (17:11)
[2022-10-02 17:48] LABS: Amphetamines+Metham, Urine Neg (Neg); Barbiturates, Urine Neg (Neg); Benzodiazepine, Urine Neg (Neg); Cocaine, Urine Neg (Neg); MDMA (Ecstacy), Urine Neg (Neg); Methadone, Urine Neg (Neg); Opiate, Urine Neg (Neg); Phencyclidine, Urine Neg (Neg)
[2022-10-02] MEDS ORDERED: LABETALOL HCL IV 5 MG/ML 20ML IV STA (17:54)
[2022-10-02] MEDS: cefTRIAXone SODIUM 2,000 MG in DEXTROSE 5% 50 ML IV SCH (17:55)
[2022-10-02] MEDS ORDERED: GABAPENTIN 600 MG TAB PO ONE (18:00)
[2022-10-02] MEDS ORDERED: MULTI-VITAMIN INFUSION 10 ML, THIAMINE HCL 100 MG, FOLIC ACID 1 MG in SODIUM CHLORIDE 0... IV ONE (18:00)
[2022-10-02] MEDS ORDERED: cloNIDine HCL 0.1 MG TAB PO PRN (18:01)
[2022-10-02] MEDS ORDERED: cloNIDine HCL 0.1 MG TAB PO ONE (18:15)
[2022-10-02] MEDS ORDERED: LABETALOL HCL IV 5 MG/ML 20ML IV PRN (21:30)
[2022-10-02] MEDS: MAGNESIUM OXIDE 400 MG TAB PO SCH (21:40)
[2022-10-02] MEDS: PHENAZOPYRIDINE HCL 200 MG TAB PO PRN (21:40)
[2022-10-02] MEDS: SODIUM CHLORIDE 1 GM TABLET PO SCH (21:40)
[2022-10-03] MEDS: GABAPENTIN 600 MG TAB PO SCH ×4 (01:17→21:07)
[2022-10-03 07:30] LABS: Hematocrit (blood only) 40.3 % (42.0-52.0); Hemoglobin 13.4 g/dl (14.0-18.0); Mean Corpuscular Hemoglobin 28.2 pg (25.0-34.0); Mean Corpuscular Hgb Conc 33.3 g/dL (32.0-36.0); Mean Corpuscular Volume 84.7 fL (80.0-100.0); Mean Platelet Volume 9.3 fL (9.4-12.4); Platelet Count 139 K/uL (130-400); RDW Coefficient of Variation 19.5 % (11.5-14.5); RDW Standard Deviation 59.9 fL (36.4-46.3); Red Blood Count 4.76 M/uL (4.70-6.10); White Blood Count 5.94 K/ul (4.8-10.8)
[2022-10-03] MEDS: POTASSIUM CHLORIDE 20 MEQ/15 ML UDC PO SCH (07:52)
[2022-10-03] MEDS: SODIUM CHLORIDE 1 GM TABLET PO SCH ×2 (07:53→21:08)
[2022-10-03] MEDS: MAGNESIUM OXIDE 400 MG TAB PO SCH ×2 (07:54→21:08)
[2022-10-03] MEDS: amLODIPine BESYLATE 5 MG TAB PO SCH (07:54)
[2022-10-03 07:55] LABS: BUN Creatinine Ratio 13.7 (10-20); Calcium 8.5 mg/dl (8.5-10.1); Creatinine Clr Calc Pharmacy 109.8 ml/min; Est GFR (African American) 118.5 ml/min; Est GFR (Non-African American) 102.2 ml/min; Magnesium 1.6 mg/dl (1.7-2.4); Phosphorus 3.6 mg/dl (2.5-4.9); Potassium 3.6 mmol/L (3.5-5.1)
[2022-10-03] MEDS: MULTIVITAMIN TAB PO SCH (07:55)
[2022-10-03] MEDS: PHENAZOPYRIDINE HCL 200 MG TAB PO PRN (07:56)
[2022-10-03] MEDS ORDERED: THIAMINE HCL 100 MG in SYRINGE 9 ML IV SCH (09:00)
[2022-10-03] MEDS ORDERED: RIBOFLAVIN 50 MG PO SCH (09:00)
[2022-10-03] MEDS ORDERED: FOLIC ACID 1 MG in SYRINGE 9.8 ML IV SCH (09:00)
--- NOTE | 2022-10-03 10:51 | Electrocardiogram Report ---
Test Reason : Blood Pressure : / mmHG Vent. Rate : 093 BPM Atrial Rate : 093 BPM P-R Int : 176 ms QRS Dur : 096 ms QT Int : 432 ms P-R-T Axes : 066 028 241 degrees QTc Int : 537 ms Normal sinus rhythm Prolonged QT Abnormal ECG When compared with ECG of 30-MAR-2022 16:22, ST now depressed in Lateral leads T wave inversion now evident in Inferior leads T wave inversion now evident in Anterolateral leads QT has lengthened Confirmed by Rajesh Stallworth ([id number]) on 10/03/2022 10:51:21 AM Referred By: REFERRED SELF Confirmed By:Sridhar Stallworth
[2022-10-03] MEDS: ACETAMINOPHEN 325 MG TAB PO PRN ×3 (10:55→21:06)
--- NOTE | 2022-10-03 12:46 | Hospitalist Progress Note ---
Date of Service October 03, 2022 Assessment & Plan (1) Alcohol abuse: Plan 56yo M with a PMH of Chronic alcohol abuse, recurrent falls and weakness and other medical problems listed below presented to the ED 10/02 with [facility] as he was deemed unsafe at home. He is being managed for the following: Chronic alcohol abuse Recurrent falls Ambulatory dysfunction BLE weakness/generalized weakness Unsafe at home per [facility] Poor medication adherence Patient reports he drinks 5-6 beers a day. Provided counselling about alcohol cessation. Monitor for withdrawal Per Admitting Dr, he has history of DTs on previous admissions Continue alcohol withdrawal protocol, gabapentin and PRN ativan. Change thiamine and folic acid from iv to po Fall precautions. Head CT at presentation w/ no acute findings. Awaiting PT/OT evaluation CM on board Acute UTI: Dysuria UA suggestive of UTI. RN notified to send UCx Continue ceftriaxone for now Hypertensive Urgency: BP elevated at presentation upto 190/110 History of non compliance to home meds. Continue home amlodipine Chronic hyponatremia Likely due to alcoholism. Na was 131 on presentation Continue home sodium tabs. Na is 134 today Vitamin B12 deficient Continue home vitamin B12 supplement. Hypokalemia: K was 3.2 on admission Repleted. 3.6 today Replaced. Hypomagnesemia today Continue po mag and monitor History of thrombocytopenia: Plt 151 on admission. Heparin SQ I spent a total of 40 minutes coordinating, documenting and providing care for this patient excluding time spent in performance of separately billed services Admission and Anticipated Discharge Date Admission Date: October 02, 2022 Subjective Patient seen and examined Patient reports dysuria. Denies frequency or urgency or hematuria. Reports bilateral lower extremity weakness which have worsened over time. He is asking about placement stating that he cannot take care of himself at home. Reports frequent falls at home. Denies any cough, chest pain, shortness of breath Denies any fevers, chills, nausea, vomiting, abdominal pain, diarrhea Physical Exam Constitutional: + well hydrated; no acute distress Eyes: PERRL, conjunctivae normal, anicteric sclerae ENMT: external ear and nose normal, oropharynx normal Respiratory: normal respiratory effort, lungs clear to auscultation Cardiovascular: Rate/Rhythm: regular rate and regular rhythm S1 S2 Gastrointestinal (Abdomen): normal bowel sounds, soft, nontender, no hepatosplenomegaly Musculoskeletal: No pedal edema Neurologic: PERRL, EOMI, accommodation nl, no face palsy, no dysarthria Psychiatric: A+Ox3, euthymic affect Results & Data Results & Data Vital Signs (Past 12 Hours) Vital Signs Temp Pulse Pulse Resp BP BP Pulse Ox 10/03/22 11:00 37.1 C 85 18 121/83 93 10/03/22 07:40 36.4 C L 82 20 171/97 H 92 10/03/22 03:12 36.8 C 74 18 150/94 H 94 10/03/22 01:44 79 O2 Del Method 10/03/22 11:00 Room Air 10/03/22 07:40 Room Air 10/03/22 03:12 Room Air 10/03/22 01:44 Laboratory Results Abnormal lab results 10/02/22 10/03/22 10/03/22 Range/Units 15:57 07:07 07:07 Hgb 13.4 L (14.0-18.0) g/dl Hct 40.3 L (42.0-52.0) % RDW Std Deviation 59.9 H (36.4-46.3) fL RDW Coeff of Luis 19.5 H (11.5-14.5) % MPV 9.3 L (9.4-12.4) fL Sodium 134 L (136-145) mmol/L Magnesium 1.6 L (1.7-2.4) mg/dl Urine pH 8.0 H (4.5-7.5) Urine Protein 3+ H (Negative) Urine Ketones 3+ H (Negative) Urine Nitrite Positive A (Negative) Urine Bilirubin 1+ H (Negative) Ur Leukocyte Esterase Trace H (Negative) U Hyaline Cast (Auto) 10-30 H (0-5) /lpf U Epithel Cells (Auto) 20-30 H (0-5) /lpf
[2022-10-03] MEDS: cefTRIAXone SODIUM 2,000 MG in DEXTROSE 5% 50 ML IV SCH (18:44)
[2022-10-04] MEDS ORDERED: NITROGLYCERIN SL 0.4 MG/TAB TAB SL STA (02:28)
[2022-10-04] MEDS ORDERED: NITROGLYCERIN SL 0.4 MG/TAB TAB ONE (02:34)
[2022-10-04] MEDS ORDERED: MoRPHine SULFATE 2 MG/ML CARP IV STA (03:02)
[2022-10-04] MEDS: GABAPENTIN 600 MG TAB PO SCH ×2 (06:16→17:37)
[2022-10-04] MEDS: ACETAMINOPHEN 325 MG TAB PO PRN ×3 (06:23→21:00)
[2022-10-04 07:11] LABS: Hematocrit (blood only) 36.9 % (42.0-52.0); Hemoglobin 12.2 g/dl (14.0-18.0); Mean Corpuscular Hemoglobin 28.3 pg (25.0-34.0); Mean Corpuscular Hgb Conc 33.1 g/dL (32.0-36.0); Mean Corpuscular Volume 85.6 fL (80.0-100.0); Mean Platelet Volume 10.3 fL (9.4-12.4); Platelet Count 146 K/uL (130-400); RDW Coefficient of Variation 18.9 % (11.5-14.5); RDW Standard Deviation 59.6 fL (36.4-46.3); Red Blood Count 4.31 M/uL (4.70-6.10); White Blood Count 6.34 K/ul (4.8-10.8)
[2022-10-04 07:28] LABS: BUN Creatinine Ratio 14.7 (10-20); Calcium 8.4 mg/dl (8.5-10.1); Creatinine Clr Calc Pharmacy 120.8 ml/min; Est GFR (Non-African American) 105.3 ml/min; Magnesium 1.5 mg/dl (1.7-2.4); Phosphorus 3.7 mg/dl (2.5-4.9); Potassium 3.7 mmol/L (3.5-5.1)
[2022-10-04] MEDS: amLODIPine BESYLATE 5 MG TAB PO SCH (09:22)
[2022-10-04] MEDS: SODIUM CHLORIDE 1 GM TABLET PO SCH (09:22)
[2022-10-04] MEDS: MAGNESIUM OXIDE 400 MG TAB PO SCH ×2 (09:22→21:00)
[2022-10-04] MEDS: MULTIVITAMIN TAB PO SCH (09:23)
[2022-10-04] MEDS: POTASSIUM CHLORIDE 20 MEQ/15 ML UDC PO SCH (09:23)
[2022-10-04] MEDS: FOLIC ACID 1 MG TAB PO SCH (09:23)
[2022-10-04] MEDS: THIAMINE HCL 100 MG TAB PO SCH (09:23)
--- NOTE | 2022-10-04 10:59 | Electrocardiogram Report ---
Test Reason : Blood Pressure : / mmHG Vent. Rate : 086 BPM Atrial Rate : 086 BPM P-R Int : 152 ms QRS Dur : 082 ms QT Int : 432 ms P-R-T Axes : 026 015 218 degrees QTc Int : 516 ms Poor data quality, interpretation may be adversely affected Normal sinus rhythm Left ventricular hypertrophy with repolarization abnormality vs ischemia or cerebrovascular event Prolonged QT Abnormal ECG When compared with ECG of 02-OCT-2022 13:38, No significant change was found Confirmed by Rajesh Stallworth ([id number]) on 10/04/2022 10:58:38 AM Referred By: REFERRED SELF Confirmed By:Sridhar Stallworth
--- NOTE | 2022-10-04 11:00 | Electrocardiogram Report ---
Test Reason : Blood Pressure : / mmHG Vent. Rate : 075 BPM Atrial Rate : 075 BPM P-R Int : 194 ms QRS Dur : 092 ms QT Int : 454 ms P-R-T Axes : 054 021 218 degrees QTc Int : 506 ms Normal sinus rhythm Left ventricular hypertrophy with repolarization abnormality versus ischemia or cerebrovascular even t Prolonged QT Abnormal ECG When compared with ECG of 04-OCT-2022 02:39, (unconfirmed) No significant change was found Confirmed by Rajesh Stallworth ([id number]) on 10/04/2022 11:00:07 AM Referred By: REFERRED SELF Confirmed By:Sridahr Stallworth
[2022-10-04] MEDS ORDERED: MAGNESIUM SULFATE / D5W 1 GM/100 ML BAG IV ONE (11:11)
--- NOTE | 2022-10-04 11:17 | Hospitalist Progress Note ---
Date of Service October 04, 2022 Assessment & Plan (1) Alcohol abuse: Plan 56yo M with a PMH of Chronic alcohol abuse, recurrent falls and weakness and other medical problems listed below presented to the ED 10/02 with office of aging as he was deemed unsafe at home. He is being managed for the following: Chronic alcohol abuse Recurrent falls Ambulatory dysfunction BLE weakness/generalized weakness Unsafe at home per [facility] Poor medication adherence Patient reports he drinks 5-6 beers a day. Provided counselling about alcohol cessation. Monitor for withdrawal Per Admitting Dr, he has history of DTs on previous admissions Continue alcohol withdrawal protocol, gabapentin and PRN ativan. Continue po thiamine and folic acid Fall precautions. Head CT at presentation w/ no acute findings. PT/OT evaluation. SNF recommended CM on board Chest pain EKG on admission noted EKG changes with TWI in inferior and anterolateral leads at the time (compared to one from 03/2022) Trop this AM is 20 Will trend trop Get TTE Cardiology consult. Discussed with Dramatic Agent. Will get cardiac catheterization tomorrow morning Started on ASA 81mg and atorvastatin Acute UTI: Dysuria UA suggestive of UTI. RN notified to send UCx Continue ceftriaxone for now Hypertensive Urgency: BP elevated at presentation upto 190/110 History of non compliance to home meds. Continue home amlodipine Chronic hyponatremia Likely due to alcoholism. Na was 131 on presentation Continue home sodium tabs. Na is 134 today Vitamin B12 deficient Continue home vitamin B12 supplement. Hypokalemia: K was 3.2 on admission Repleted. 3.7 today Replaced. Hypomagnesemia today Mag 1.5 Will give IV repletion in addition to po mag Continue po mag and monitor History of thrombocytopenia: Plt 151 on admission. 146 today Heparin SQ I spent a total of 50 minutes coordinating, documenting and providing care for this patient excluding time spent in performance of separately billed services Admission and Anticipated Discharge Date Admission Date: October 02, 2022 Subjective Patient seen and examined Patient reported he had central chest pain overnight that occured at rest, not referred, not associated with shortness of breath or dizziness. Reported he had not had such pain before He got nitro then and EKG was performed No chest pain at this time Still reports bilateral lower extremity weakness Denies any cough, shortness of breath Denies any fevers, chills, nausea, vomiting, abdominal pain, diarrhea He has hearing deficits Reports 30 pack year smoking h/o, quit about 6 years ago Still drinks alcohol Reported he snorted cocaine over 20 years ago Physical Exam Constitutional: + well hydrated; no acute distress Eyes: PERRL, conjunctivae normal, anicteric sclerae ENMT: external ear and nose normal, oropharynx normal +hearing deficit Respiratory: normal respiratory effort, lungs clear to auscultation Cardiovascular: Rate/Rhythm: regular rate and regular rhythm S1 S2 Gastrointestinal (Abdomen): normal bowel sounds, soft, nontender, no hepatos plenomegaly Musculoskeletal: No pedal edema Neurologic: PERRL, EOMI, accommodation nl, no face palsy, no dysarthria Psychiatric: A+Ox3, euthymic affect Results & Data Results & Data Vital Signs (Past 12 Hours) Vital Signs Temp Pulse Pulse Resp BP Pulse Ox O2 Del Method 10/04/22 07:55 37.3 C 85 20 127/71 93 Room Air 10/04/22 02:49 85 109/69 98 Room Air 10/04/22 02:17 36.5 C 82 20 165/90 H 97 Room Air 10/03/22 23:12 80 Laboratory Results Abnormal lab results 10/04/22 10/04/22 10/04/22 Range/Units 06:04 06:04 06:04 RBC 4.31 L (4.70-6.10) M/uL Hgb 12.2 L (14.0-18.0) g/dl Hct 36.9 L (42.0-52.0) % RDW Std Deviation 59.6 H (36.4-46.3) fL RDW Coeff of Luis 18.9 H (11.5-14.5) % Sodium 132 L (136-145) mmol/L Calcium 8.4 L (8.5-10.1) mg/dl Magnesium 1.5 L (1.7-2.4) mg/dl Troponin I High Sens 20.2 H (0-20) pg/ml
--- NOTE | 2022-10-04 11:33 | XRay Report ---
XR chest 1V portable HISTORY: 57 years-old Male Evaluate, chest pain acute chest pain COMPARISON: 03/30/2022 TECHNIQUE: AP view of the chest FINDINGS: Cardiac mediastinal and hilar silhouettes are within normal limits. No pneumothorax, pleural effusion , or overt pulmonary edema. Mild linear subsegmental bibasilar atelectasis versus scarring redemonstr ated. Chronic left-sided rib fractures. Degenerative changes of the shoulders and spine. IMPRESSION: No acute process. ACT 112: Negative or not required by law. The above report was generated using voice recognition software. It may contain grammatical, syntax o r spelling errors. Electronically signed by: Ector Hernandez M.D. 10/04/2022 11:32 AM
--- NOTE | 2022-10-04 13:48 | Cardiology Consultation ---
Date of Consultation October 04, 2022 Assessment & Plan (1) Abnormal ECG: (2) Precordial chest pain: (3) Bicuspid aortic valve: (4) Aortic root dilation: Plan 57-year-old male with complex issues with underlying notable history of bicuspid aortic valve with trace aortic insufficiency and no significant stenosis, dilated ascending aorta presents with increasing weakness fatigue and generalized instability. EKG on presentation demonstrates dramatic T wave inversion anterolateral precordial leads persistent this admission despite treatment of underlying electrolyte abnormalities. Episode of chest discomfort last night with trivial elevation in troponin this morning Echocardiogram demonstrates preserved LV function and wall motion Impression: Dramatically abnormal EKG suggestive of significant structural versus cardiomyopathy process. Echocardiogram reflects underlying known bicuspid aortic valve and dilated aortic root but no acute wall motion abnormalities Plan keep patient n.p.o. after midnight. Continue to replete magnesium and potassium, treat for potential alcohol withdrawal Optimally patient will be referred for diagnostic coronary angiography to exclude obstructive disease. We will discuss further with patient. Initial conversation patient agreeable Addendum: Discussed cardiac catheterization in detail with patient he is agreeable. Noted marked difficulty with activity today. We will begin aspirin and low-dose beta-calin Tentative procedure scheduled for a.m. N.p.o. after midnight Procedure and risk discussed in detail with patient History of Present Illness Reason for Consultation: Chest pain, abnormal EKG Requesting Physician: Anny Cummings MD Attending Physician: Anny Cummings MD History of Present Illness Patient is a 57-year-old male with underlying cardiac and medical history notable for 1. Congenitally bicuspid aortic valve 2. Dilated aortic root/aneurysm 3. Hypertension 4. Chronic alcohol abuse with encephalopathy and ataxia Patient was referred from office of aging assessment for evaluation with increasing weakness fatigue and falls. On ER presentation EKG markedly abnormal Last evening had transient chest pressure "slept on my chest wrong" EKG repeated and demonstrated persistent deep T wave inversions across the anterolateral precordial leads Patient denies prior history of angina or congestive heart failure. Notes no history of myocardial infarction TIA or stroke Not aware of prior cardiac disease though records reflect as above bicuspid aortic valve and dilated aortic root Has been struggling with increasing fatigue and exertional dyspnea with patient very sedentary at home. No fevers chills or unexplained infections. No bleeding difficulties Patient extremely hard of hearing but was able to converse and answer questions. Laboratory studies on presentation notable for hypokalemia and hypomagnesemia being replaced. Allergies Allergy/AdvReac Type Severity Reaction Status Date / Time hydralazine AdvReac Intermediate rapid drop Verified 03/31/22 11:37 in BP/Vomiting Penicillins AdvReac Mild TIRED Verified 03/30/22 20:55 Home Medications Medication Instructions Recorded Confirmed Type multivitamin with folic acid 400 1 tab PO QAM #30 tabs 10/29/21 10/02/22 Rx mcg tablet (Daily-Ifeanyi (with folic acid)) folic acid 1 mg tablet 1 mg PO QAM #30 tabs 12/31/21 10/02/22 Rx thiamine HCl (vitamin B1) 100 mg 100 mg PO DAILY 02/02/22 10/02/22 History tablet (Vitamin B-1) riboflavin (vitamin B2) 50 mg 0 mg PO DAILY 02/11/22 10/02/22 History tablet (Vitamin B-2) amlodipine 10 mg tablet 10 mg PO DAILY 03/30/22 10/02/22 History hydroxyzine HCl 25 mg tablet 25 mg PO Q6 PRN Itching 03/30/22 10/02/22 History magnesium oxide 400 mg (241.3 mg 400 mg PO BID 03/30/22 10/02/22 History magnesium) tablet potassium chloride 20 mEq 20 meq PO DAILY 03/30/22 10/02/22 History tablet,extended release sodium chloride 1 gram tablet 1 g PO BID 03/30/22 10/02/22 History cyanocobalamin (vitamin B-12) 500 1,000 mcg PO QAM #30 tabs 04/04/22 10/02/22 Rx mcg tablet Patient History Medical History Adult failure to thrive Alcohol intoxication Alcohol use disorder Ambulatory dysfunction Anemia Anxiety Aortic root dilation Ataxia Bunion of unspecified foot Chronic hyponatremia Dementia DTs (delirium tremens) Esophageal tear Flat foot, acquired Frequent falls Generalized atherosclerosis Generalized weakness Hammer toe, acquired unspecified Hearing deficit Hereditary and idiopathic neuropathy, unspecified History of COVID-19 ? 07/17/20 per records History of esophageal dilatation last done 04/16/21 @ [facility] History of esophageal stricture Hx of fracture of hip Hypertension Hypokalemia Hypomagnesemia [facility] 2500 cc fluid daily restriction was noted in records Sensorineural hearing loss (SNHL) of both ears Subgaleal hemorrhage Surgical History History of esophagogastroduodenoscopy (EGD) (~04/16/21) History of hip surgery s/p fall and fx Family History Other Cancer Hypertension Denies family history of Myocardial infarction Stroke Social History Smoking Status: Former smoker Tobacco Type: Cigarettes Second Hand Exposure: No; Hx Alcohol Use: Yes Alcohol type: beer Alcohol Intake Frequency Comment: 7-10 beers a day, uncertain which kind of beer Hx Substance Use: No Preferred Language: Guyanese Communication Ability: Effective Visual Impairment: No Limitations Hearing Ability: Hard of Hearing Prospect Manager Required: No Beliefs That Will Affect Care: None marital status: Single Current Living Situation: Alone Current Living Situation Comment: [address] Feels Safe at Home: No Is there a partner from a previous relationship who is making you feel unsafe now?: No Safety Concerns: Afraid for Self Assistive Devices: Glasses, Hearing Aid - Bilateral and Walker Review of Systems Review of Systems: All systems reviewed & are unremarkable except as noted in HPI & below Physical Exam Constitutional: WD/WN, vitals as above + disheveled; no acute distress Eyes: PERRL, conjunctivae normal, anicteric sclerae ENMT: external ear and nose normal, oropharynx normal Neck: trachea midline, no thyromegaly Respiratory: normal respiratory effort, lungs clear to auscultation Cardiovascular: Rate/Rhythm: regular rate and regular rhythm Heart Sounds: normal S1, normal S2 and + murmur (Grade 1/6 systolic) Vessels: normal car otid upstroke; no JVD Extremities: no edema Chest (Breasts): normal inspection/palpation of breasts Gastrointestinal (Abdomen): normal bowel sounds, soft, nontender, no hepatosplenomegaly Musculoskeletal: no cyanosis or clubbing, extremities motor strength 5/5 Skin: no rashes, warm and dry Psychiatric: Orientation: oriented x 3 Results & Data Vital Signs (Past 12 Hours) Vital Signs Temp Pulse Pulse Resp BP BP Pulse Ox 10/04/22 05:59 85 10/04/22 11:21 36.6 C 79 21 135/87 96 10/04/22 07:55 37.3 C 85 20 127/71 93 10/04/22 02:49 85 109/69 98 10/04/22 02:17 36.5 C 82 20 165/90 H 97 O2 Del Method 10/04/22 05:59 10/04/22 11:21 Room Air 10/04/22 07:55 Room Air 10/04/22 02:49 Room Air 10/04/22 02:17 Room Air Laboratory Results Laboratory Results - last 24 hr 10/04/22 10/04/22 10/04/22 06:04 06:04 06:04 WBC 6.34 RBC 4.31 L Hgb 12.2 L Hct 36.9 L MCV 85.6 MCH 28.3 MCHC 33.1 RDW Std Deviation 59.6 H RDW Coeff of Luis 18.9 H Plt Count 146 MPV 10.3 Sodium 132 L Potassium 3.7 Chloride 100 Carbon Dioxide 25 Anion Gap 7 BUN 10 Creatinine 0.68 Est Cr Clr Drug Dosing 120.8 Est GFR ( Amer) 122.0 Est GFR (Non-Af Amer) 105.3 BUN/Creatinine Ratio 14.7 Glucose 87 Calcium 8.4 L Phosphorus 3.7 Magnesium 1.5 L Troponin I High Sens 20.2 H 10/04/22 10:57 WBC RBC Hgb Hct MCV MCH MCHC RDW Std Deviation RDW Coeff of Luis Plt Count MPV Sodium Potassium Chloride Carbon Dioxide Anion Gap BUN Creatinine Est Cr Clr Drug Dosing Est GFR ( Amer) Est GFR (Non-Af Amer) BUN/Creatinine Ratio Glucose Calcium Phosphorus Magnesium Troponin I High Sens 17.4
[2022-10-04] MEDS ORDERED: ASPIRIN 81 MG ECTAB PO SCH (14:15)
[2022-10-04] MEDS: ATORVASTATIN 40 MG TAB PO SCH (15:27)
[2022-10-04] MEDS: cefTRIAXone SODIUM 2,000 MG in DEXTROSE 5% 50 ML IV SCH (17:35)
[2022-10-04] MEDS: ASPIRIN 81 MG CHEW PO SCH (19:34)
[2022-10-04] MEDS: METOPROLOL TARTRATE 25 MG TAB PO SCH (20:59)
[2022-10-05] MEDS ORDERED: SODIUM CHLORIDE 0.9% 1000ML 1,000 ML IV SCH
[2022-10-05] MEDS: GABAPENTIN 600 MG TAB PO SCH (05:49)
[2022-10-05] MEDS: ASPIRIN 81 MG CHEW PO SCH (07:52)
[2022-10-05] MEDS: FOLIC ACID 1 MG TAB PO SCH (07:52)
[2022-10-05] MEDS: amLODIPine BESYLATE 5 MG TAB PO SCH (07:52)
[2022-10-05] MEDS: MAGNESIUM OXIDE 400 MG TAB PO SCH ×2 (07:53→20:52)
[2022-10-05] MEDS: METOPROLOL TARTRATE 25 MG TAB PO SCH ×2 (07:53→20:52)
[2022-10-05] MEDS: MULTIVITAMIN TAB PO SCH (07:54)
[2022-10-05] MEDS: THIAMINE HCL 100 MG TAB PO SCH (07:54)
[2022-10-05] MEDS ORDERED: HEPARIN (PORCINE) 1000 UNIT/ML 10 ML (CATH LAB USE ONLY) ONE (09:48)
[2022-10-05] MEDS ORDERED: niCARdipine HCL INJ 2.5 MG/ML 10 ML AMP ONE (09:48)
[2022-10-05] MEDS ORDERED: fentaNYL citrate PF 100 MCG/2 ML VIAL ONE (09:48)
[2022-10-05] MEDS ORDERED: NITROGLYCERIN/D5W 100MCG/ML 20ML SYR ONE (09:49)
[2022-10-05] MEDS ORDERED: MIDAZOLAM HCL 1 MG/ML 2ML VIAL ONE (09:49)
--- NOTE | 2022-10-05 11:10 | Pre Anesthesia Assessment ---
Date of Service October 05, 2022 Pre Sedation Assessment Vital Signs Temp Pulse Pulse Resp BP BP Pulse Ox 10/05/22 08:00 72 10/05/22 09:48 78 20 127/92 95 10/05/22 08:00 36.4 C L 84 20 174/109 H 97 10/05/22 03:37 36.5 C 88 18 176/97 H 129/86 96 10/04/22 23:00 36.9 C 81 20 134/82 93 10/04/22 19:30 36.8 C 83 18 152/75 H 96 10/04/22 14:15 91 H 10/04/22 15:35 37 C 84 20 128/82 95 10/04/22 11:21 36.6 C 79 21 135/87 96 O2 Del Method 10/05/22 08:00 10/05/22 09:48 Room Air 10/05/22 08:00 Room Air 10/05/22 03:37 Room Air 10/04/22 23:00 Room Air 10/04/22 19:30 Room Air 10/04/22 14:15 10/04/22 15:35 Room Air 10/04/22 11:21 Room Air Cardiovascular RRR, no murmur, no edema + murmur no JVD no edema Respiratory normal respiratory effort, lungs clear to auscultation Pre-Sedation Airway Assessment Smoking Status: Former smoker Hx Sleep Apnea: No Short, Thick Neck: No Thyromental Distance: > or= 3.5 Finger Breadths Oral Cavity: + WNL Mallampati Class: III ASA: ASA3 NPO Status Date of Last Intake of Fluids: 10/05/22 Time of Last Intake of Fluids: 07:00 Date of Last Intake of Solid Food: 10/04/22 Time of Last Intake of Solid Foods: 20:00 Procedure Planning Contraindications for Sedation: none Current Medications Reviewed: Yes Notes The planned sedation has been discussed with the patient. Informed Consent was obtained. I have identified the patient, determined the appropriateness of sedation and have assessed the patient immediately prior to the procedure. All medicine(s) and interventions are by my order.
--- NOTE | 2022-10-05 11:19 | Post Anesthesia Assessment ---
Date of Service October 05, 2022 Post Sedation Assessment Vital Signs Temp Pulse Pulse Resp BP BP Pulse Ox 10/05/22 08:00 72 10/05/22 09:48 78 20 127/92 95 10/05/22 08:00 36.4 C L 84 20 174/109 H 97 10/05/22 03:37 36.5 C 88 18 176/97 H 129/86 96 10/04/22 23:00 36.9 C 81 20 134/82 93 10/04/22 19:30 36.8 C 83 18 152/75 H 96 10/04/22 14:15 91 H 10/04/22 15:35 37 C 84 20 128/82 95 10/04/22 11:21 36.6 C 79 21 135/87 96 O2 Del Method 10/05/22 08:00 10/05/22 09:48 Room Air 10/05/22 08:00 Room Air 10/05/22 03:37 Room Air 10/04/22 23:00 Room Air 10/04/22 19:30 Room Air 10/04/22 14:15 10/04/22 15:35 Room Air 10/04/22 11:21 Room Air Recovery Score Activity: Moves 4 extremities Respiration: Deep Breath/Cough Circulation: +/-20% PreAnes Value Consciousness: Fully Awake Oxygen Saturation: > 92% On Room Air Discharge Sedation Level of Care: Phase I Post Sedation Plan On clinical assessment, the patient appears to have tolerated the sedation without complications. Patient is recovering as anticipated. Patient will continue to be monitored by nursing and may be discharged when sedation discharge criteria are met per below protocol. Upon Completions of procedure up to 15 minutes continue every 5 minute vital signs and the P.A.R. score; then discharge to a Phase I or Fast Track to Phase II per the following guidelines: * Discharge Patient to appropriate Phase II area if PAR is 8 or greater or return to pre- procedure baseline. The post - procedure orders will be as directed. * If PAR score is less than 8 or not return to pre-procedure baseline then patient will follow Phase I monitoring till PAR is reached for Phase II. The Phase I may be done in procedure room or may call to secure a Phase I area. * If naloxone or flumazenil are used for reversal, hold in Phase I for continued monitoring from when last reversal dose was given for a minimum of 60 minutes or longer pending the nurse and/or physician discretion of patient condition before discharge to Phase II. Please call the Sedation Physician to re-evaluate and complete post-note for discharge to Phase II area. Do NOT discharge from procedure sedation or Phase 1 until post- sedation evaluation note is complete by procedure /sedation MD Sedation Discharge Instructions to be given to the patient at discharge to home.
--- NOTE | 2022-10-05 11:19 | Cardiac Catheterization ---
Cardiac Cath Procedure Brief Procedure Date October 05, 2022 Pre-Procedure Diagnosis Pre-Procedure Diagnosis: Angina AUC Score AUC Score: 7 Post-Procedure Diagnosis Post-Procedure Diagnosis: Normal Coronary Arteries and Normal LV Systolic Function (Hyperdynamic) Procedure(s) Performed Procedure(s) Performed: Coronary Angiography, Left Heart Cath and LV Angiography Cargo Checker Nabil Gastelum MD Manager Ui(s) Jeannette Cohen Estimated Blood Loss Estimated Blood Loss: <15cc Medication(s) Medication(s): Fentanyl (12.5 mcg IV), Heparin (5000 units IV), Lidocaine 1% (Local infiltration access site), Nicardipine (250 mcg intra-arterial after arterial sheath insertion) and Versed (1 mg IV) Preliminary Findings Impression: Large caliber left dominant coronary anatomy without obstruction Hyperdynamic LV systolic function EF greater than 70% Severe aortic root dilatation Recommendations Recommendations: Medical Therapy and/or Counseling Specimens Specimens: None Fluids (cc crystalloids) Fluids (cc crystalloids): 111 Anesthesia Start time: 1032, stop time: 1104 Procedural Complication(s) None Disposition PCU
--- NOTE | 2022-10-05 11:32 | Cardiac Catheterization ---
Cardiac Cath Procedure Full Procedure Date October 05, 2022 Pre-Procedure Diagnosis Pre-Procedure Diagnosis: Angina AUC Score AUC Score: 7 Post-Procedure Diagnosis Post-Procedure Diagnosis: Normal Coronary Arteries and Normal LV Systolic Function (Hyperdynamic) Procedure(s) Performed Procedure(s) Performed: Coronary Angiography, Left Heart Cath and LV Angiography Technical Support Agent Nabil Gastelum MD Asbestos Abatement Technician(s) Jeannette Cohen Estimated Blood Loss Estimated Blood Loss: <15cc Medication(s) Medication(s): Fentanyl (12.5 mcg IV), Heparin (5000 units IV), Lidocaine 1% (Local infiltration access site), Nicardipine (250 mcg intra-arterial after arterial sheath insertion) and Versed (1 mg IV) Summary of Findings Impression: Large caliber left dominant coronary anatomy without obstruction Hyperdynamic LV systolic function EF greater than 70% Severe aortic root dilatation Procedure: Left heart catheterization, coronary, LV angiography via right radial approach Catheters: 6 Sudanese long radial glide sheath, 5 Sudanese [place] 5 Sudanese JR4,, 5 F rench 3 DRC, 5 Sudanese JR 5 Procedural notes: Aortic root dilated, ostium right coronary artery with upward takeoff, large caliber nondominant Coronary angiography: Large caliber left dominant anatomy Left main: Large in caliber without calcification or disease Left anterior descending: Type III in distribution, tortuous and large caliber. It gives rise to 2 moderately large diagonal branches at the end of its proximal third and courses to beyond the apex. There is no disease in the left anterior descending Left circumflex: Large caliber dominant vessel gives rise to an atrial branch and a trivial first marginal, a small second marginal, a large bifurcating third marginal. It then proceeds along the AV groove giving rise to a very large posterolateral branch a small second and third posterolateral branch and a small posterior descending artery. There is minimal irregularities and focal calcification in its proximal portion and mid vessel but no obstruction Right coronary artery: Large caliber but nondominant consisting of 2 large right ventricular branches LV angiography: Small left ventricle with hyperdynamic function EF greater than 65%, no mitral insufficiency Aortic root is severely dilated Hemodynamics Rest Ao:: 100/61/95 Final Ao: 112/70/89 LV: 127/18 Recommendations Recommendations: Medical Therapy and/or Counseling Specimens Specimens: None Radiation Exposure (mGy) 1228 Contrast (mls) 163 Fluids (cc crystalloids) Fluids (cc crystalloids): 111 Anesthesia Start time: 1032, stop time: 1104 Procedural Complication(s) None Disposition PCU I attest to the content of the Intraoperative Record and any orders documented therein. Any exceptions are noted below. 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 EKG with marked ST segment abnormalities new anterolateral precordial leads with deep T wave inversion CAD Presenation: Stable angina Anginal Classification: CCS III Heart Failure: No Cardiogenic Shock within 24 Hours: No Cardiac Arrest within 24 Hours: No Imaging Studies Past 6 Months: Yes Stress Studies Past 6 Months: No Standard Exercise Test: No Stress Echocardiogram: No Stress Testing w/SPECT MPI: No Cardiac CTA: No Coronary Anatomy Dominant: Left Left Main (% Stenosis): Normal (Large-caliber, no calcification) LAD (% Stenosis): Normal D1 (% Stenosis): Normal D2 (% Stenosis): Normal Circumflex (% Stenosis): Proximal (Mild calcification without obstruction) and Mid (Mild calcification without obstruction) OM1 (% Stenosis): Normal OM2 (% Stenosis): Normal OM3 (% Stenosis): Normal L PL1 (% Stenosis): Normal L PL2 (% Stenosis): Normal L PDA (% Stenosis): Normal R PL1 (% Stenosis): Normal (Nondominant with 2 large right ventricular branches) Left Ventricular Angiography EF (%): >65 Mitral Regurgitation: None Diagnostic Physicians Name: Nabil Gastelum MD Status: Urgent Closure Device Percutaneous Entry Location: Radial Closure Device: Radial Band Recommendations: Medical Therapy and/or Counseling
--- NOTE | 2022-10-05 12:40 | Cardiology Progress Note ---
Date of Service October 05, 2022 Assessment & Plan (1) Abnormal ECG: (2) Precordial chest pain: (3) Bicuspid aortic valve: (4) Aortic root dilation: Plan 57-year-old male with complex issues with underlying notable history of bicuspid aortic valve with trace aortic insufficiency and no significant stenosis, dilated ascending aorta presents with increasing weakness fatigue and generalized instability. EKG on presentation demonstrates dramatic T wave inversion anterolateral prec ordial leads persistent this admission despite treatment of underlying electrolyte abnormalities. Episode of chest discomfort last night with trivial elevation in troponin this morning Echocardiogram demonstrates preserved LV function and wall motion Impression: Dramatically abnormal EKG suggestive of significant structural versus cardiomyopathy process. Echocardiogram reflects underlying known bicuspid aortic valve and dilated aortic root but no acute wall motion abnormalities Cardiac catheterization without obstructive coronary disease with large caliber left dominant coronary anatomy. LV systolic function hyperdynamic. Severe dilation of the aortic root Prior CT of the head without intracranial process to account for EKG changes Recommendations: Continue aspirin and low-dose beta-calin follow-up cardiology 1 to 2 months posthospital discharge Admission and Anticipated Discharge Date Admission Date: October 02, 2022 Subjective Patient was seen and examined both prior to cardiac catheterization after. Patient tolerated procedure well currently without cardiac complaints. No arrhythmias on telemetry with patient tolerating low-dose beta-calin. Review of Systems Review of Systems: All systems reviewed & are unremarkable except as noted in Subjective Physical Exam Constitutional: WD/WN, vitals as above + disheveled; no acute distress Eyes: PERRL, conjunctivae normal, anicteric sclerae ENMT: Mallampati Class: III Neck: trachea midline, no thyromegaly Respiratory: normal respiratory effort, lungs clear to auscultation Cardiovascular: RRR, no murmur, no edema Rate/Rhythm: regular rate and regular rhythm Heart Sounds: normal S1, normal S2 and + murmur Vessels: normal carotid upstroke and radial pulses present (Access site healing well); no JVD Extremities: no edema Chest (Breasts): normal inspection/palpation of breasts Gastrointestinal (Abdomen): normal bowel sounds, soft, nontender, no hepatosplenomegaly Musculoskeletal: no cyanosis or clubbing, extremities motor strength 5/5 Skin: no rashes, warm and dry Psychiatric: Orientation: oriented x 3 Results & Data Vital Signs (Past 12 Hours) Vital Signs Temp Pulse Pulse Resp BP BP Pulse Ox 10/05/22 12:00 66 20 122/52 L 95 10/05/22 11:45 68 20 130/74 95 10/05/22 11:30 69 20 111/78 95 10/05/22 11:15 62 20 142/91 H 95 10/05/22 08:00 72 10/05/22 09:48 78 20 127/92 95 10/05/22 08:00 36.4 C L 84 20 174/109 H 97 10/05/22 03:37 36.5 C 88 18 176/97 H 129/86 96 O2 Del Method 10/05/22 12:00 Room Air 10/05/22 11:45 Room Air 10/05/22 11:30 Room Air 10/05/22 11:15 Room Air 10/05/22 08:00 10/05/22 09:48 Room Air 10/05/22 08:00 Room Air 10/05/22 03:37 Room Air
[2022-10-05] MEDS: ATORVASTATIN 40 MG TAB PO SCH (13:24)
[2022-10-05] MEDS: POTASSIUM CHLORIDE 20 MEQ/15 ML UDC PO SCH (13:24)
[2022-10-05] MEDS: SODIUM CHLORIDE 0.9% 1000ML 1,000 ML IV SCH (13:25)
[2022-10-05 13:32] LABS: Hematocrit (blood only) 38.2 % (42.0-52.0); Hemoglobin 12.6 g/dl (14.0-18.0); Mean Corpuscular Hemoglobin 27.9 pg (25.0-34.0); Mean Corpuscular Volume 84.7 fL (80.0-100.0); Mean Platelet Volume 9.7 fL (9.4-12.4); Platelet Count 159 K/uL (130-400); RDW Coefficient of Variation 18.7 % (11.5-14.5); RDW Standard Deviation 57.6 fL (36.4-46.3); Red Blood Count 4.51 M/uL (4.70-6.10); White Blood Count 6.54 K/ul (4.8-10.8)
[2022-10-05 13:47] LABS: BUN Creatinine Ratio 9.7 (10-20); Creatinine Clr Calc Pharmacy 132.3 ml/min; Est GFR (African American) 126.7 ml/min; Est GFR (Non-African American) 109.3 ml/min; Magnesium 1.8 mg/dl (1.7-2.4); Phosphorus 3.8 mg/dl (2.5-4.9); Potassium 3.7 mmol/L (3.5-5.1)
--- NOTE | 2022-10-05 16:30 | Hospitalist Progress Note ---
Date of Service October 05, 2022 Assessment & Plan (1) Alcohol abuse: Plan 56yo M with a PMH of Chronic alcohol abuse, recurrent falls and weakness and other medical problems listed below presented to the ED 10/02 with office [facility] aging as he was deemed unsafe at home. He is being managed for the following: Chronic alcohol abuse Alcohol use disorder: Ongoing etoh abuse ; Also with component of dementia 2/2 longstanding etoh use History of DTs in setting of withdrawal in the past On Gabapentin and ativan for alcohol withdrawal protocol Banana bag, Thiamine and Folic acid in AM Counseling on smoking cessation Unsafe at home per KIMBERLY Poor medication adherence Patient reports he drinks 5-6 beers a day. Provided counselling about alcohol cessation. Monitor for withdrawal Per Admitting Dr, he has history of DTs on previous admissions Continue alcohol withdrawal protocol, gabapentin and PRN ativan. Continue po thiamine and folic acid Ambulatory dysfunction BLE weakness/generalized weakness Recurrent falls CT head showed no significant change compared to the prior study. No acute intracranial abnormality. Continue PT/OT Fall precaution Waiting for placement Fall precautions. Head CT at presentation w/ no acute findings. PT/OT evaluation. SNF recommended CM on board Chest pain EKG on admission noted EKG changes with TWI in inferior and anterolateral leads at the time (compared to one from 03/2022) Initial troponin 20.2 then trending to 17 ECHO showed LV is normal in size. Mild concentric LV hypertrophy. EF 55 - 60% S/p cardiac cath without obstructive coronary disease with large caliber left dominant coronary anatomy. Continue aspirin, statin and low-dose beta-calin Follow-up with cardiology in 1 to 2 months posthospital discharge Acute UTI: Dysuria UA suggestive of UTI. Urine cx showed no growth Currently on ceftriaxone for now, will d/c after tomorrow dose Hypertensive Urgency: BP elevated at presentation up to 190/110 History of non compliance to home meds. Continue home amlodipine Chronic hyponatremia Likely due to alcoholism. Na 129 today Will resume home dose sodium tab Vitamin B12 deficient Continue home vitamin B12 supplement. Hypokalemia: K was 3.2 on admission K 3.7 today Continue monitor BMP Hypomagnesemia Mag 1.8 today Continue Mag supplement History of thrombocytopenia: Plt 159 today Continue monitor CBC DVT px Heparin SQ I spent a total of 50 minutes coordinating, documenting and providing care for this patient excluding time spent in performance of separately billed services Admission and Anticipated Discharge Date Admission Date: October 02, 2022 Subjective Patient was seen and examined for follow up Lying in bed with no acute distress Patient tolerated procedure well currently without cardiac complaints. No arrhythmias on telemetry noted Denies any chest pain, palpitation and SOB Review of Systems Review of Systems: All systems reviewed & are unremarkable except as noted in Subjective Physical Exam Physical Exam: General- No acute distress Head- atraumatic Eyes- PERRL, EOMI, ENT- oropharynx clear Neck- supple, no JVD Lungs- clear to auscultation Heart- regular rhythm; no murmur Abdomen- normal bowel sounds, soft, nontender Extremities- no calf tenderness, right wrist with radial band Neuro- alert, oriented x 3; PERRL, EOMI; no facial palsy; no dysarthria Skin- warm & dry Results & Data Results & Data Vital Signs (Past 12 Hours) Vital Signs Temp Pulse Pulse Resp BP BP BP 10/05/22 15:30 74 17 10/05/22 15:00 78 16 140/88 10/05/22 14:31 112/84 10/05/22 14:31 77 16 10/05/22 14:15 144/93 H 10/05/22 14:15 75 14 10/05/22 14:01 165/99 H 10/05/22 14:00 70 24 10/05/22 13:46 70 12 10/05/22 13:46 161/93 H 10/05/22 13:30 77 24 10/05/22 13:30 119/82 10/05/22 13:15 129/89 10/05/22 13:15 77 18 10/05/22 13:00 89 22 10/05/22 13:00 137/85 10/05/22 12:51 138/93 10/05/22 12:51 78 14 10/05/22 15:03 10/05/22 15:00 10/05/22 14:55 10/05/22 14:58 10/05/22 11:10 10/05/22 12:00 66 20 122/52 L 10/05/22 11:45 68 20 130/74 10/05/22 11:30 69 20 111/78 10/05/22 11:15 62 20 142/91 H 10/05/22 08:00 72 10/05/22 09:48 78 20 127/92 10/05/22 08:00 36.4 C L 84 20 174/109 H Pulse Ox O2 Del Method 10/05/22 15:30 96 10/05/22 15:00 97 10/05/22 14:31 10/05/22 14:31 94 10/05/22 14:15 10/05/22 14:15 95 10/05/22 14:01 10/05/22 14:00 10/05/22 13:46 94 10/05/22 13:46 10/05/22 13:30 95 10/05/22 13:30 10/05/22 13:15 10/05/22 13:15 95 10/05/22 13:00 94 10/05/22 13:00 10/05/22 12:51 10/05/22 12:51 96 10/05/22 15:03 Room Air 10/05/22 15:00 Room Air 10/05/22 14:55 Room Air 10/05/22 14:58 Room Air 10/05/22 11:10 Room Air 10/05/22 12:00 95 Room Air 10/05/22 11:45 95 Room Air 10/05/22 11:30 95 Room Air 10/05/22 11:15 95 Room Air 10/05/22 08:00 10/05/22 09:48 95 Room Air 10/05/22 08:00 97 Room Air
[2022-10-05] MEDS: cefTRIAXone SODIUM 2,000 MG in DEXTROSE 5% 50 ML IV SCH (17:54)
[2022-10-05] MEDS: SODIUM CHLORIDE 1 GM TABLET PO SCH (20:52)
[2022-10-06] MEDS: SODIUM CHLORIDE 0.9% 1000ML 1,000 ML IV SCH ×2 (04:50→07:55)
[2022-10-06] MEDS ORDERED: GABAPENTIN 600 MG TAB PO SCH (06:00)
[2022-10-06 06:23] LABS: Hematocrit (blood only) 34.7 % (42.0-52.0); Hemoglobin 11.5 g/dl (14.0-18.0); Mean Corpuscular Hgb Conc 33.1 g/dL (32.0-36.0); Mean Corpuscular Volume 84.6 fL (80.0-100.0); Mean Platelet Volume 9.5 fL (9.4-12.4); Platelet Count 147 K/uL (130-400); RDW Coefficient of Variation 18.6 % (11.5-14.5); RDW Standard Deviation 57.5 fL (36.4-46.3); White Blood Count 5.44 K/ul (4.8-10.8)
[2022-10-06 06:40] LABS: BUN Creatinine Ratio 12.9 (10-20); Calcium 8.5 mg/dl (8.6-10.3); Creatinine Clr Calc Pharmacy 132.3 ml/min; Est GFR (African American) 126.7 ml/min; Est GFR (Non-African American) 109.3 ml/min; Magnesium 1.7 mg/dl (1.7-2.4); Potassium 3.8 mmol/L (3.5-5.1)
[2022-10-06] MEDS: ASPIRIN 81 MG CHEW PO SCH (07:58)
[2022-10-06] MEDS: THIAMINE HCL 100 MG TAB PO SCH (07:58)
[2022-10-06] MEDS: ATORVASTATIN 40 MG TAB PO SCH (07:58)
[2022-10-06] MEDS: POTASSIUM CHLORIDE 20 MEQ/15 ML UDC PO SCH (07:58)
[2022-10-06] MEDS: METOPROLOL TARTRATE 25 MG TAB PO SCH ×2 (07:58→21:52)
[2022-10-06] MEDS: MULTIVITAMIN TAB PO SCH (07:58)
[2022-10-06] MEDS: amLODIPine BESYLATE 5 MG TAB PO SCH (07:58)
[2022-10-06] MEDS: MAGNESIUM OXIDE 400 MG TAB PO SCH ×2 (07:58→23:14)
[2022-10-06] MEDS: SODIUM CHLORIDE 1 GM TABLET PO SCH ×2 (07:58→21:53)
[2022-10-06] MEDS: FOLIC ACID 1 MG TAB PO SCH (07:59)
--- NOTE | 2022-10-06 12:54 | Cardiology Progress Note ---
Date of Service October 06, 2022 Assessment & Plan (1) Abnormal ECG: (2) Precordial chest pain: (3) Bicuspid aortic valve: (4) Aortic root dilation: Plan 57-year-old male with complex issues with underlying notable history of bicuspid aortic valve with trace aortic insufficiency and no significant stenosis, dilated ascending aorta presents with increasing weakness fatigue and generalized instability. EKG on presentation demonstrates dramatic T wave inversion anterolateral prec ordial leads persistent this admission despite treatment of underlying electrolyte abnormalities. Episode of chest discomfort last night with trivial elevation in troponin this morning Echocardiogram demonstrates preserved LV function and wall motion Impression: Dramatically abnormal EKG suggestive of significant structural versus cardiomyopathy process. Echocardiogram reflects underlying known bicuspid aortic valve and dilated aortic root but no acute wall motion abnormalities Cardiac catheterization without obstructive coronary disease with large caliber left dominant coronary anatomy. LV systolic function hyperdynamic. Severe dilation of the aortic root Prior CT of the head without intracranial process to account for EKG changes Recommendations: Continue aspirin and low-dose beta-calin, reduce atorvastatin to 10 mg/day follow-up cardiology 1 to 2 months posthospital discharge Admission and Anticipated Discharge Date Admission Date: October 02, 2022 Subjective Patient seen and examined, chart, medications, telemetry reviewed. Conversant without complaint No arrhythmias overnight Right radial access site for heart catheterization healed well Review of Systems Review of Systems: All systems reviewed & are unremarkable except as noted in Subjective Physical Exam Constitutional: WD/WN, vitals as above + disheveled; no acute distress Eyes: PERRL, conjunctivae normal, anicteric sclerae ENMT: Mallampati Class: III Neck: trachea midline, no thyromegaly Respiratory: normal respiratory effort, lungs clear to auscultation Cardiovascular: RRR, no murmur, no edema Rate/Rhythm: regular rate and regular rhythm Heart Sounds: normal S1, normal S2 and + murmur Vessels: normal carotid upstroke and radial pulses present (Access site healing well); no JVD Extremities: no edema Chest (Breasts): normal inspection/palpation of breasts Gastrointestinal (Abdomen): normal bowel sounds, soft, nontender, no hepatosplenomegaly Musculoskeletal: no cyanosis or clubbing, extremities motor strength 5/5 Skin: no rashes, warm and dry Psychiatric: Orientation: oriented x 3 Results & Data Vital Signs (Past 12 Hours) Vital Signs Temp Pulse Resp BP Pulse Ox O2 Del Method 10/06/22 11:09 36.6 C 74 16 146/88 H 95 Room Air 10/06/22 08:00 37.0 C 85 16 171/96 H 95 Room Air 10/06/22 03:01 36.6 C 78 18 155/95 H 95 Room Air Laboratory Results Laboratory Results - last 24 hr 10/05/22 10/05/22 10/06/22 13:02 13:02 06:04 WBC 6.54 5.44 RBC 4.51 L 4.10 L Hgb 12.6 L 11.5 L Hct 38.2 L 34.7 L MCV 84.7 84.6 MCH 27.9 28.0 MCHC 33.0 33.1 RDW Std Deviation 57.6 H 57.5 H RDW Coeff of Luis 18.7 H 18.6 H Plt Count 159 147 MPV 9.7 9.5 Sodium 129 L Potassium 3.7 Chloride 95 L Carbon Dioxide 25 Anion Gap 9 BUN 6 Creatinine 0.62 Est Cr Clr Drug Dosing 132.3 Est GFR ( Amer) 126.7 Est GFR (Non-Af Amer) 109.3 BUN/Creatinine Ratio 9.7 L Glucose 96 Calcium 9.0 Phosphorus 3.8 Magnesium 1.8 10/06/22 06:04 WBC RBC Hgb Hct MCV MCH MCHC RDW Std Deviation RDW Coeff of Luis Plt Count MPV Sodium 128 L Potassium 3.8 Chloride 98 Carbon Dioxide 23 Anion Gap 7 BUN 8 Creatinine 0.62 Est Cr Clr Drug Dosing 132.3 Est GFR ( Amer) 126.7 Est GFR (Non-Af Amer) 109.3 BUN/Creatinine Ratio 12.9 Glucose 105 H Calcium 8.5 L Phosphorus Magnesium 1.7
--- NOTE | 2022-10-06 16:12 | Hospitalist Progress Note ---
Date of Service October 06, 2022 Assessment & Plan (1) Alcohol abuse: Plan 56yo M with a PMH of Chronic alcohol abuse, recurrent falls and weakness and other medical problems listed below presented to the ED 10/02 with [facility] as he was deemed unsafe at home. He is being managed for the following: Chronic alcohol abuse Alcohol use disorder: Ongoing etoh abuse ; Also with component of dementia 2/2 longstanding etoh use History of DTs in setting of withdrawal in the past On Gabapentin and ativan for alcohol withdrawal protocol Banana bag, Thiamine and Folic acid in AM Counseling on smoking cessation Unsafe at home per KIMBERLY Poor medication adherence Patient reports he drinks 5-6 beers a day. Provided counselling about alcohol cessation. Monitor for withdrawal Per Admitting Dr, he has history of DTs on previous admissions Continue alcohol withdrawal protocol, gabapentin and PRN ativan. Continue po thiamine and folic acid Ambulatory dysfunction BLE weakness/generalized weakness Recurrent falls CT head showed no significant change compared to the prior study. No acute intracranial abnormality. Continue PT/OT Fall precaution Waiting for placement Fall precautions. Head CT at presentation w/ no acute findings. PT/OT evaluation. SNF recommended CM on board Chest pain EKG on admission noted EKG changes with TWI in inferior and anterolateral leads at the time (compared to one from 03/2022) Initial troponin 20.2 then trending to 17 ECHO showed LV is normal in size. Mild concentric LV hypertrophy. EF 55 - 60% S/p cardiac cath without obstructive coronary disease with large caliber left dominant coronary anatomy. Continue aspirin, statin and low-dose beta-calin Follow-up with cardiology in 1 to 2 months posthospital discharge Acute UTI: Dysuria UA suggestive of UTI. Urine cx showed no growth Currently on ceftriaxone for now, will d/c ceftriaxone Hypertensive Urgency: BP elevated at presentation up to 190/110 History of non compliance to home meds. Continue home amlodipine Chronic hyponatremia Likely due to alcoholism. Na 128 today Will resume home dose sodium tab Vitamin B12 deficient Continue home vitamin B12 supplement. Hypokalemia: K was 3.2 on admission K 3.7 today Continue monitor BMP Hypomagnesemia Mag 1.8 today Continue Mag supplement History of thrombocytopenia: Plt 147 today Continue monitor CBC DVT px Heparin SQ Disposition Waiting for treatment I spent a total of 50 minutes coordinating, documenting and providing care for this patient excluding time spent in performance of separately billed services Admission and Anticipated Discharge Date Admission Date: October 02, 2022 Subjective Pt was seen and examined for follow up He was trying to use his walker to ambulate in the hallway He said that he feels ok Denies any chest pain, palpitation, dizziness and SOB Review of Systems Review of Systems: All systems reviewed & are unremarkable except as noted in Subjective Physical Exam Physical Exam: General- No acute distress Head- atraumatic Eyes- PERRL, EOMI, ENT- oropharynx clear Neck- supple, no JVD Lungs- clear to auscultation Heart- regular rhythm; no murmur Abdomen- normal bowel sounds, soft, nontender Extremities- no calf tenderness, right wrist with radial band Neuro- alert, oriented x 3; PERRL, EOMI; no facial palsy; no dysarthria Skin- warm & dry Results & Data Results & Data Vital Signs (Past 12 Hours) Vital Signs Temp Pulse Resp BP Pulse Ox O2 Del Method 10/06/22 11:09 36.6 C 74 16 146/88 H 95 Room Air 10/06/22 08:00 37.0 C 85 16 171/96 H 95 Room Air
[2022-10-06] MEDS: cefTRIAXone SODIUM 2,000 MG in DEXTROSE 5% 50 ML IV SCH (17:47)
[2022-10-07] MEDS: amLODIPine BESYLATE 5 MG TAB PO SCH (07:48)
[2022-10-07] MEDS: FOLIC ACID 1 MG TAB PO SCH (07:48)
[2022-10-07] MEDS: ATORVASTATIN 10 MG TAB PO SCH (07:48)
[2022-10-07] MEDS: MULTIVITAMIN TAB PO SCH (07:48)
[2022-10-07] MEDS: THIAMINE HCL 100 MG TAB PO SCH (07:49)
[2022-10-07] MEDS: METOPROLOL TARTRATE 25 MG TAB PO SCH ×2 (07:49→22:07)
[2022-10-07] MEDS: MAGNESIUM OXIDE 400 MG TAB PO SCH ×2 (07:49→22:08)
[2022-10-07] MEDS: SODIUM CHLORIDE 1 GM TABLET PO SCH ×2 (07:49→22:08)
[2022-10-07] MEDS: ASPIRIN 81 MG CHEW PO SCH (07:58)
[2022-10-07] MEDS: POTASSIUM CHLORIDE 20 MEQ/15 ML UDC PO SCH (09:32)
[2022-10-07] MEDS: ACETAMINOPHEN 325 MG TAB PO PRN ×2 (13:39→22:05)
--- NOTE | 2022-10-07 13:49 | Hospitalist Progress Note ---
Date of Service October 07, 2022 Assessment & Plan (1) Alcohol abuse: Plan 56yo M with a PMH of Chronic alcohol abuse, recurrent falls and weakness and other medical problems listed below presented to the ED 10/02 with office of aging as he was deemed unsafe at home. He is being managed for the following: Chronic alcohol abuse Alcohol use disorder: Ongoing etoh abuse ; Also with component of dementia 2/2 longstanding etoh use History of DTs in setting of withdrawal in the past On Gabapentin and ativan for alcohol withdrawal protocol Banana bag, Thiamine and Folic acid in AM Counseling on smoking cessation Unsafe at home per KIMBERLY Poor medication adherence Patient reports he drinks 5-6 beers a day. Provided counselling about alcohol cessation. Monitor for withdrawal Has history of DTs on previous admissions Continue alcohol withdrawal protocol, gabapentin and PRN ativan. Continue po thiamine and folic acid Ambulatory dysfunction BLE weakness/generalized weakness Recurrent falls CT head showed no significant change compared to the prior study. No acute intracranial abnormality. Continue PT/OT Fall precaution Waiting for placement Fall precautions. Head CT at presentation w/ no acute findings. PT/OT evaluation. SNF recommended CM on board Chest pain EKG on admission noted EKG changes with TWI in inferior and anterolateral leads at the time (compared to one from 03/2022) Initial troponin 20.2 then trending to 17 ECHO showed LV is normal in size. Mild concentric LV hypertrophy. EF 55 - 60% S/p cardiac cath without obstructive coronary disease with large caliber left dominant coronary anatomy. Continue aspirin, statin and low-dose beta-calin Follow-up with cardiology in 1 to 2 months posthospital discharge Acute UTI: Dysuria UA suggestive of UTI. Urine cx showed no growth D/c ceftriaxone Hypertensive Urgency: BP elevated at presentation up to 190/110 History of non compliance to home meds. Continue home amlodipine Chronic hyponatremia Likely due to alcoholism. Na 128 today Will resume home dose sodium tab Vitamin B12 deficient Continue home vitamin B12 supplement. Hypokalemia: K was 3.2 on admission, replaced Continue monitor BMP Hypomagnesemia Mag 1.8 today Continue Mag supplement History of thrombocytopenia: Plt 147 today Continue monitor CBC DVT px Heparin SQ Disposition Awaiting discharge to SNF, planning on Monday per CM. I spent a total of 40 minutes coordinating, documenting, and providing care for this patient excluding time spent in the performance of separately billed services. Admission and Anticipated Discharge Date Admission Date: October 02, 2022 Supervising Physician Co-Signing Physician Notes Pt was seen and examined. Agreed with Hortencia SCHULER exam exam, assessment and plan. S/p cardiac cath without obstructive coronary disease with large caliber left dominant coronary anatomy. Denies any chest pain. No sign of DT. Continue PT/OT. Waiting for placement to rehab. MD Raymon Subjective Pt was seen and examined for follow up in 302. Patient was resting comfortably in bed. Denies any new or worsening symptoms overnight. Feels ready to be transitioned to SNF.Denies any chest pain, palpitation, dizziness and SOB Review of Systems Review of Systems: At least ten systems reviewed and negative except as noted in the HPI. Physical Exam Physical Exam: Gen: WD/WN, NAD, sitting up in bed, A&Ox2 HEENT: Normocephalic, atraumatic, conjunctivae moist, sclerae anicteric, mucous membranes moist Lung: Clear to Auscultation bilaterally, no wheezes/rales/rhonchi Heart: Regular rate, regular rhythm, no murmurs, rubs, or gallops Abdomen: Soft, NT, ND +BS x 4 Extremities: no edema Skin: Warm, no rash Results & Data Results & Data Vital Signs (Past 12 Hours) Vital Signs Temp Pulse Resp BP Pulse Ox O2 Del Method 10/07/22 07:28 36.9 C 70 17 157/96 H 96 Room Air
[2022-10-08 06:39] LABS: Calcium 8.8 mg/dl (8.6-10.3); Creatinine Clr Calc Pharmacy 136.7 ml/min; Est GFR (African American) 128.5 ml/min; Est GFR (Non-African American) 110.8 ml/min; Potassium 3.9 mmol/L (3.5-5.1)
[2022-10-08] MEDS: POTASSIUM CHLORIDE 20 MEQ/15 ML UDC PO SCH (07:46)
[2022-10-08] MEDS: MAGNESIUM OXIDE 400 MG TAB PO SCH ×2 (07:47→21:34)
[2022-10-08] MEDS: SODIUM CHLORIDE 1 GM TABLET PO SCH ×2 (07:47→21:35)
[2022-10-08] MEDS: THIAMINE HCL 100 MG TAB PO SCH (07:48)
[2022-10-08] MEDS: METOPROLOL TARTRATE 25 MG TAB PO SCH ×2 (07:48→21:35)
[2022-10-08] MEDS: amLODIPine BESYLATE 5 MG TAB PO SCH (07:49)
[2022-10-08] MEDS: MULTIVITAMIN TAB PO SCH (07:49)
[2022-10-08] MEDS: FOLIC ACID 1 MG TAB PO SCH (07:49)
[2022-10-08] MEDS: ATORVASTATIN 10 MG TAB PO SCH (07:49)
[2022-10-08] MEDS: ASPIRIN 81 MG CHEW PO SCH (07:57)
[2022-10-08] MEDS: ACETAMINOPHEN 325 MG TAB PO PRN ×2 (10:59→21:33)
--- NOTE | 2022-10-08 17:28 | Hospitalist Progress Note ---
Date of Service October 08, 2022 Assessment & Plan (1) Alcohol abuse: Plan 56yo M with a PMH of Chronic alcohol abuse, recurrent falls and weakness and other medical problems listed below presented to the ED 10/02 with office of aging as he was deemed unsafe at home. He is being managed for the following: Chronic alcohol abuse Alcohol use disorder: Ongoing etoh abuse ; Also with component of dementia 2/2 longstanding etoh use History of DTs in setting of withdrawal in the past On Gabapentin and ativan for alcohol withdrawal protocol Banana bag, Thiamine and Folic acid in AM Counseling on smoking cessation Unsafe at home per KIMBERLY Poor medication adherence Patient reports he drinks 5-6 beers a day. Provided counselling about alcohol cessation. Monitor for withdrawal Per Admitting Dr, he has history of DTs on previous admissions Continue alcohol withdrawal protocol, gabapentin and PRN ativan. Continue po thiamine and folic acid Ambulatory dysfunction BLE weakness/generalized weakness Recurrent falls CT head showed no significant change compared to the prior study. No acute intracranial abnormality. Continue PT/OT Fall precaution Waiting for placement Fall precautions. Head CT at presentation w/ no acute findings. PT/OT evaluation. SNF recommended CM on board Chest pain EKG on admission noted EKG changes with TWI in inferior and anterolateral leads at the time (compared to one from 03/2022) Initial troponin 20.2 then trending to 17 ECHO showed LV is normal in size. Mild concentric LV hypertrophy. EF 55 - 60% S/p cardiac cath without obstructive coronary disease with large caliber left dominant coronary anatomy. Continue aspirin, statin and low-dose beta-calin Follow-up with cardiology in 1 to 2 months posthospital discharge Acute UTI: Dysuria UA suggestive of UTI. Urine cx showed no growth Currently on ceftriaxone for now, will d/c ceftriaxone Hypertensive Urgency: BP elevated at presentation up to 190/110 History of non compliance to home meds. Continue home amlodipine Chronic hyponatremia Likely due to alcoholism. Na 130 today Will resume home dose sodium tab Vitamin B12 deficient Continue home vitamin B12 supplement. Hypokalemia: K was 3.2 on admission K 3.9 today Continue monitor BMP Hypomagnesemia Mag 1.8 Continue Mag supplement History of thrombocytopenia: Plt 147 today Continue monitor CBC DVT px Heparin SQ Disposition Waiting for treatment I spent a total of 50 minutes coordinating, documenting and providing care for this patient excluding time spent in performance of separately billed services Admission and Anticipated Discharge Date Admission Date: October 02, 2022 Subjective Pt was seen and examined for follow Lying in bed with no distress Denies any chest pain, palpitation, dizziness and SOB Review of Systems Review of Systems: All systems reviewed & are unremarkable except as noted in Subjective Physical Exam Physical Exam: General- No acute distress Head- atraumatic Eyes- PERRL, EOMI, ENT- oropharynx clear Neck- supple, no JVD Lungs- clear to auscultation Heart- regular rhythm; no murmur Abdomen- normal bowel sounds, soft, nontender Extremities- no calf tenderness, right wrist with radial band Neuro- alert, oriented x 3; PERRL, EOMI; no facial palsy; no dysarthria Skin- warm & dry Results & Data Results & Data Vital Signs (Past 12 Hours) Vital Signs Temp Pulse Resp BP Pulse Ox O2 Del Method 10/08/22 14:34 36.8 C 64 16 142/89 H 96 Room Air 10/08/22 07:51 36.9 C 62 16 140/91 96 Room Air
[2022-10-09] MEDS: POTASSIUM CHLORIDE 20 MEQ/15 ML UDC PO SCH (07:13)
[2022-10-09] MEDS: ASPIRIN 81 MG CHEW PO SCH (07:13)
[2022-10-09] MEDS: amLODIPine BESYLATE 5 MG TAB PO SCH (07:14)
[2022-10-09] MEDS: MULTIVITAMIN TAB PO SCH (07:14)
[2022-10-09] MEDS: THIAMINE HCL 100 MG TAB PO SCH (07:14)
[2022-10-09] MEDS: SODIUM CHLORIDE 1 GM TABLET PO SCH ×2 (07:15→19:56)
[2022-10-09] MEDS: MAGNESIUM OXIDE 400 MG TAB PO SCH ×2 (07:15→19:56)
[2022-10-09] MEDS: ATORVASTATIN 10 MG TAB PO SCH (07:15)
[2022-10-09] MEDS: FOLIC ACID 1 MG TAB PO SCH (07:15)
[2022-10-09] MEDS: METOPROLOL TARTRATE 25 MG TAB PO SCH ×2 (07:15→19:56)
[2022-10-09 08:39] LABS: BUN Creatinine Ratio 14.3 (10-20); Calcium 9.3 mg/dl (8.6-10.3); Creatinine Clr Calc Pharmacy 130.2 ml/min; Est GFR (African American) 125.9 ml/min; Est GFR (Non-African American) 108.6 ml/min
[2022-10-09] MEDS: ACETAMINOPHEN 325 MG TAB PO PRN ×2 (10:49→20:34)
--- NOTE | 2022-10-09 17:05 | Hospitalist Progress Note ---
Date of Service October 09, 2022 Assessment & Plan (1) Alcohol abuse: Plan 56yo M with a PMH of Chronic alcohol abuse, recurrent falls and weakness and other medical problems listed below presented to the ED 10/02 with office [facility] aging as he was deemed unsafe at home. He is being managed for the following: Chronic alcohol abuse Alcohol use disorder: Ongoing etoh abuse ; Also with component of dementia 2/2 longstanding etoh use History of DTs in setting of withdrawal in the past On Gabapentin and ativan for alcohol withdrawal protocol Banana bag, Thiamine and Folic acid in AM Counseling on smoking cessation Unsafe at home per KIMBERLY Poor medication adherence Patient reports he drinks 5-6 beers a day. Provided counselling about alcohol cessation. Monitor for withdrawal Has history of DTs on previous admissions Continue alcohol withdrawal protocol, gabapentin and PRN ativan. Continue po thiamine and folic acid Ambulatory dysfunction BLE weakness/generalized weakness Recurrent falls CT head showed no significant change compared to the prior study. No acute intracranial abnormality. Continue PT/OT Fall precaution Waiting for placement Fall precautions. Head CT at presentation w/ no acute findings. PT/OT evaluation. SNF recommended CM on board Chest pain EKG on admission noted EKG changes with TWI in inferior and anterolateral leads at the time (compared to one from 03/2022) Initial troponin 20.2 then trending to 17 ECHO showed LV is normal in size. Mild concentric LV hypertrophy. EF 55 - 60% S/p cardiac cath without obstructive coronary disease with large caliber left dominant coronary anatomy. Continue aspirin, statin and low-dose beta-calin Follow-up with cardiology in 1 to 2 months posthospital discharge Acute UTI: Dysuria UA suggestive of UTI. Urine cx showed no growth D/c ceftriaxone Hypertensive Urgency: BP elevated at presentation up to 190/110 History of non compliance to home meds. Continue home amlodipine Chronic hyponatremia Likely due to alcoholism. Na 128 today Will resume home dose sodium tab Vitamin B12 deficient Continue home vitamin B12 supplement. Hypokalemia: K was 3.2 on admission, replaced Continue monitor BMP Hypomagnesemia Mag 1.8 today Continue Mag supplement History of thrombocytopenia: Plt 147 today Continue monitor CBC DVT px Heparin SQ Disposition Awaiting discharge to SNF, planning on Monday per CM. I spent a total of 40 minutes coordinating, documenting, and providing care for this patient excluding time spent in the performance of separately billed services. Admission and Anticipated Discharge Date Admission Date: October 02, 2022 Subjective Pt was seen and examined for follow Lying in bed with no distress Pt is waiting for bed Denies any chest pain, palpitation, dizziness and SOB Review of Systems Review of Systems: All systems reviewed & are unremarkable except as noted in Subjective Physical Exam Physical Exam: General- No acute distress Head- atraumatic Eyes- PERRL, EOMI, ENT- oropharynx clear Neck- supple, no JVD Lungs- clear to auscultation Heart- regular rhythm; no murmur Abdomen- normal bowel sounds, soft, nontender Extremities- no calf tenderness, right wrist with radial band Neuro- alert, oriented x 3; PERRL, EOMI; no facial palsy; no dysarthria Skin- warm & dry Results & Data Results & Data Vital Signs (Past 12 Hours) Vital Signs Temp Pulse Resp BP Pulse Ox O2 Del Method 10/09/22 14:42 36.6 C 71 16 123/75 96 Room Air 10/09/22 07:49 36.7 C 68 16 140/85 96 Room Air
[2022-10-10] MEDS: ACETAMINOPHEN 325 MG TAB PO PRN ×2 (02:53→08:02)
[2022-10-10] MEDS: POTASSIUM CHLORIDE 20 MEQ/15 ML UDC PO SCH (07:09)
[2022-10-10] MEDS: METOPROLOL TARTRATE 25 MG TAB PO SCH (07:11)
[2022-10-10] MEDS: amLODIPine BESYLATE 5 MG TAB PO SCH (07:13)
[2022-10-10] MEDS: SODIUM CHLORIDE 1 GM TABLET PO SCH (07:13)
[2022-10-10] MEDS: FOLIC ACID 1 MG TAB PO SCH (07:13)
[2022-10-10] MEDS: THIAMINE HCL 100 MG TAB PO SCH (07:13)
[2022-10-10] MEDS: ASPIRIN 81 MG CHEW PO SCH (07:13)
[2022-10-10] MEDS: ATORVASTATIN 10 MG TAB PO SCH (07:13)
[2022-10-10] MEDS: MAGNESIUM OXIDE 400 MG TAB PO SCH (07:13)
[2022-10-10] MEDS: MULTIVITAMIN TAB PO SCH (07:13)
--- NOTE | 2022-10-10 10:20 | Discharge Summary ---
Date of Service October 10, 2022 Admission HPI Per Admitting Provider 57-year-old man with chronic alcohol abuse despite multiple counseling with adverse effects, recurrent falls, BLE weakness, Unsteady gait presented to the ED 10/02 with office of aging as he was deemed unsafe at home. Patient is very hard of hearing and hence some of the history were taken from the chart review and from emergency physician along with possible history from the patient himself. Upon entering the room, patient reports that he has weak legs and was asking if anything can be done about it. He also reports that except for his weak legs he does not have any other problems. Upon further asking, he reports he has not eaten since last 2 days because he cannot walk and hence he cannot make food for himself. He just lays in the couch per him. He also reports having burning sensation while passing urine. He reports falls and weak legs. Patient again counseled regarding alcohol cessation or else he will continue to worsen with regard to his balance, patient has been counselled as such multiple times in the past as well. Patient reports he continues to drink, 5-6 beers a day. Patient reports he is hungry and would like to eat. Patient appears that he is not taking his medications as prescribed. He does not follow-up with his primary care physician as an outpatient. Admission Exam Per Admitting Provider N GENERAL: Alert and oriented x3. NAD, on RA. Appears older than stated age/weak/frail/chronically ill. HEENT: No pallor, no icterus. Pupils equal, round and reactive to light. Oral mucosa moist. NECK: No JVD, no neck masses. HEART: S1 and S2 heard. Regular rate and rhythm. No murmur, no gallop. RESPIRATORY SYSTEM: Normal AP diameter. No accessory muscle use. No wheezing, no crackles. ABDOMEN: Soft, bowel sounds present, nontender, no distention. CENTRAL NERVOUS SYSTEM: No facial droop. Speech is clear. Obeys simple commands. Moves extremities. EXTREMITIES: No edema, no erythema seen. Principal Diagnosis Chronic alcohol abuse Ambulatory dysfunction BLE weakness/generalized weakness Recurrent falls Chest pain UTI: Hypertensive Urgency: Chronic hyponatremia Vitamin B12 deficient Hypokalemia: Hypomagnesemia History of thrombocytopenia: Discharge Exam General- No acute distress Head- atraumatic Eyes- PERRL, EOMI, ENT- oropharynx clear Neck- supple, no JVD Lungs- clear to auscultation Heart- regular rhythm; no murmur Abdomen- normal bowel sounds, soft, nontender Extremities- no calf tenderness, right wrist with radial band Neuro- alert, oriented x 3; PERRL, EOMI; no facial palsy; no dysarthria Skin- warm & dry Discharge Data Allergies Allergy/AdvReac Type Severity Reaction Status Date / Time hydralazine AdvReac Intermediate rapid drop Verified 03/31/22 11:37 in BP/Vomiting Penicillins AdvReac Mild TIRED Verified 03/30/22 20:55 Consultations 10/02/22 15:04 ED Decision to Admit Stat 10/04/22 10:10 Consult Cardiology Routine Procedures Performed Operation Date: 10/05/22 09:30 Actual Procedures p Cineradiography w/Routine Exam - Nabil Gastelum MD p Cath, Left with Cors and Vent - Nabil Gastelum MD Ordered Studies 10/02/22 14:10 CT head/brain wo con Stat 10/05/22 06:30 CL Cath Imgs for PACS use only Routine Laboratory Results WBC 5.44 K/ul (4.8-10.8) 10/06/22 06:04 RBC 4.10 M/uL (4.70-6.10) L 10/06/22 06:04 Hgb 11.5 g/dl (14.0-18.0) L 10/06/22 06:04 Hct 34.7 % (42.0-52.0) L 10/06/22 06:04 MCV 84.6 fL (80.0-100.0) 10/06/22 06:04 MCH 28.0 pg (25.0-34.0) 10/06/22 06:04 MCHC 33.1 g/dL (32.0-36.0) 10/06/22 06:04 RDW Std Deviation 57.5 fL (36.4-46.3) H 10/06/22 06:04 RDW Coeff of Luis 18.6 % (11.5-14.5) H 10/06/22 06:04 Plt Count 147 K/uL (130-400) 10/06/22 06:04 MPV 9.5 fL (9.4-12.4) 10/06/22 06:04 Immature Gran % (Auto) 0.5 % 10/02/22 13:50 Neut % (Auto) 62.5 % 10/02/22 13:50 Lymph % (Auto) 15.9 % 10/02/22 13:50 [place] % (Auto) 20.1 % 10/02/22 13:50 Eos % (Auto) 0.5 % 10/02/22 13:50 Baso % (Auto) 0.5 % 10/02/22 13:50 Neut # (Auto) 3.48 K/uL (1.40-6.50) 10/02/22 13:50 Lymph # (Auto) 0.89 K/uL (1.2-3.4) L 10/02/22 13:50 [place] # (Auto) 1.12 K/uL (0.11-0.59) H 10/02/22 13:50 Eos # (Auto) 0.03 K/uL (0-0.50) 10/02/22 13:50 Baso # (Auto) 0.03 K/uL (0-0.2) 10/02/22 13:50 Immature Gran # (Auto) 0.03 K/uL (0.01-0.20) 10/02/22 13:50 Sodium 130 mmol/L (136-145) L 10/09/22 07:32 Potassium 4.0 mmol/L (3.5-5.1) 10/09/22 07:32 Chloride 97 mmol/L (98-107) L 10/09/22 07:32 Carbon Dioxide 25 mmol/L (21-32) 10/09/22 07:32 Anion Gap 8 (3-11) 10/09/22 07:32 BUN 9 mg/dl (6-23) 10/09/22 07:32 Creatinine 0.63 mg/dl (0.6-1.4) 10/09/22 07:32 Est Cr Clr Drug Dosing 130.2 ml/min 10/09/22 07:32 Est GFR ( Amer) 125.9 ml/min 10/09/22 07:32 Est GFR (Non-Af Amer) 108.6 ml/min 10/09/22 07:32 BUN/Creatinine Ratio 14.3 (10-20) 10/09/22 07:32 Glucose 90 mg/dl (70-99(Fasting)) 10/09/22 07:32 Calcium 9.3 mg/dl (8.6-10.3) 10/09/22 07:32 Phosphorus 3.8 mg/dl (2.5-4.9) 10/05/22 13:02 Magnesium 1.7 mg/dl (1.7-2.4) 10/06/22 06:04 Total Bilirubin 1.3 mg/dl (0.2-1.0) H 10/02/22 13:50 AST 37 U/L (13-39) 10/02/22 13:50 ALT 18 U/L (7-52) 10/02/22 13:50 Alkaline Phosphatase 97 U/L (34-104) 10/02/22 13:50 Troponin I High Sens 17.4 pg/ml (0-20) 10/04/22 10:57 Total Protein 8.4 gm/dl (6.0-8.3) H 10/02/22 13:50 Albumin 4.7 gm/dl (3.4-5.0) 10/02/22 13:50 Globulin 3.7 gm/dl (2.5-4.0) 10/02/22 13:50 Albumin/Globulin Ratio 1.3 (0.9-2) 10/02/22 13:50 Lipase 36 U/L (11-82) 10/02/22 13:50 Urine Color [place] 10/02/22 15:57 Urine Appearance Clear (Clear) 10/02/22 15:57 Urine pH 8.0 (4.5-7.5) H 10/02/22 15:57 Ur Specific Jackson 1.028 (1.000-1.030) 10/02/22 15:57 Urine Protein 3+ (Negative) H 10/02/22 15:57 Urine Glucose (UA) Negative (Negative) 10/02/22 15:57 Urine Ketones 3+ (Negative) H 10/02/22 15:57 Urine Blood Negative (Negative) 10/02/22 15:57 Urine Nitrite Positive (Negative) A 10/02/22 15:57 Urine Bilirubin 1+ (Negative) H 10/02/22 15:57 Urine Urobilinogen Negative (Negative) 10/02/22 15:57 Ur Leukocyte Esterase Trace (Negative) H 10/02/22 15:57 Urine WBC (Auto) 1-5 /hpf (0-5) 10/02/22 15:57 Urine RBC (Auto) 0-4 /hpf (0-4) 10/02/22 15:57 U Hyaline Cast (Auto) 10-30 /lpf (0-5) H 10/02/22 15:57 U Epithel Cells (Auto) 20-30 /lpf (0-5) H 10/02/22 15:57 Urine Bacteria (Auto) Negative (Negative) 10/02/22 15:57 Urine Opiates Screen Neg (Neg) 10/02/22 15:57 Ur Methadone, Qual Neg (Neg) 10/02/22 15:57 Urine Barbiturates Neg (Neg) 10/02/22 15:57 Ur Phencyclidine (PCP) Neg (Neg) 10/02/22 15:57 U Amphetamin/Meth Scrn Neg (Neg) 10/02/22 15:57 MDMA (Ecstasy) Screen Neg (Neg) 10/02/22 15:57 U Benzodiazepines Scrn Neg (Neg) 10/02/22 15:57 Ur Cocaine Metabolite Neg (Neg) 10/02/22 15:57 U Marijuana (THC) Screen Neg (Neg) 10/02/22 15:57 SARS-CoV-2, RNA, NAAT NEGATIVE (NEGATIVE) 10/10/22 09:[address] 10/02/22 14:[address] DOSE: 614.27 mGy.cm HISTORY: fall TECHNIQUE: Multiaxial CT images of the head were performed without the use of intravenous contrast. Automated exposure control was utilized for this study. A dose lowering technique was utilized adhering to the principles of ALARA. Comparison: Head CT 03/30/2022. Findings: The paranasal sinuses and mastoid air cells are clear. The calvarium and skull base are intact. There is no mass, hematoma, midline shift, acute infarct. White matter hypodensity is nonspecific but suggestive of microvascular ischemic change. The ventricles and sulci demonstrate mild age-related involutional changes. 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 This remains unchanged. Impression: No significant change compared to the prior study. No acute intracranial abnormality. ACT 112: Negative or not required by law. Electronically signed by: Jigar Cassidy M.D. 10/02/2022 2:30 PM Chest X-Ray 10/04/22 11:11 XR chest 1V portable HISTORY: 57 years-old Male Evaluate, chest pain acute chest pain COMPARISON: 03/30/2022 TECHNIQUE: AP view of the chest FINDINGS: Cardiac mediastinal and hilar silhouettes are within normal limits. No pneumothorax, pleural effusion, or overt pulmonary edema. Mild linear subsegmental bibasilar atelectasis versus scarring redemonstrated. Chronic left- sided rib fractures. Degenerative changes of the shoulders and spine. IMPRESSION: No acute process. ACT 112: Negative or not required by law. The above report was generated using voice recognition software. It may contain grammatical, syntax or spelling errors. Electronically signed by: Ector Hernandez M.D. 10/04/2022 11:32 AM Hospital Course (1) Alcohol abuse: Plan 56yo M with a PMH of Chronic alcohol abuse, recurrent falls and weakness and other medical problems listed below presented to the ED 10/02 with office of aging as he was deemed unsafe at home. He is being managed for the following: Chronic alcohol abuse Alcohol use disorder: Ongoing etoh abuse ; Also with component of dementia 2/2 longstanding etoh use History of DTs in setting of withdrawal in the past On Gabapentin and ativan for alcohol withdrawal protocol Banana bag, Thiamine and Folic acid in AM Counseling on smoking cessation Unsafe at home per [facility] Poor medication adherence Patient reports he drinks 5-6 beers a day. Provided counselling about alcohol cessation. Monitor for withdrawal Has history of DTs on previous admissions Continue alcohol withdrawal protocol, gabapentin and PRN ativan. Continue po thiamine and folic acid Ambulatory dysfunction BLE weakness/generalized weakness Recurrent falls CT head showed no significant change compared to the prior study. No acute intracranial abnormality. Continue PT/OT Fall precaution Waiting for placement Fall precautions. Head CT at presentation w/ no acute findings. PT/OT evaluation. SNF recommended CM on board Chest pain EKG on admission noted EKG changes with TWI in inferior and anterolateral leads at the time (compared to one from 03/2022) Initial troponin 20.2 then trending to 17 ECHO showed LV is normal in size. Mild concentric LV hypertrophy. EF 55 - 60% S/p cardiac cath without obstructive coronary disease with large caliber left dominant coronary anatomy. Continue aspirin, statin and low-dose beta-calin Follow-up with cardiology in 1 to 2 months posthospital discharge Acute UTI: Dysuria UA suggestive of UTI. Urine cx showed no growth D/c ceftriaxone Hypertensive Urgency: BP elevated at presentation up to 190/110 History of non compliance to home meds. Continue home amlodipine Chronic hyponatremia Likely due to alcoholism. Na 130 today Continue sodium tab Continue 1.5 L fluid restriction Vitamin B12 deficient Continue home vitamin B12 supplement. Hypokalemia: K was 3.2 on admission, replaced Continue monitor BMP Hypomagnesemia Mag 1.8 today Continue Mag supplement History of thrombocytopenia: Plt 147 today Continue monitor CBC DVT px Heparin SQ Disposition Awaiting discharge to SNF, planning on Monday per CM. I spent a total of 40 minutes coordinating, documenting, and providing care for this patient excluding time spent in the performance of separately billed services. Total Time Total Time Spent Total Time Spent (In Minutes): 40 minutes Discharge Plan Discharge Items Patient Disposition: Transfer [facility] Reason For Visit: WEAKNESS Discharge Diagnosis: Chronic alcohol abuse Ambulatory dysfunction BLE weakness/generalized weakness Recurrent falls Chest pain UTI: Hypertensive Urgency: Chronic hyponatremia Vitamin B12 deficient Hypokalemia: Hypomagnesemia History of thrombocytopenia: Activity: Resume your previous activity Non-emergency contact: Primary Care Provider Call non-emergency contact if: you have any medication questions and your temperature is above 101 Follow-up/Referrals: Denis Burleson DO [Primary Care Provider] - Diet: Heart Healthy Fluids: 1500ml (6 cups) Diet Texture: Dental soft (bite-sized) Addtl Attending Provider Instructions: Follow up with your primary care provider once discharge from rehab Follow up with cardiology in 1 to 2 months Continue physical and occupational therapy Continue daily fluid restriction with 1.5 Liter Check BMP in 1 week to monitor in electrolytes Counseling on alcohol cessation Fall precaution Pending Studies at Discharge: No Stand-Alone Forms: My [facility] Skilled Items Patient informed of condition?: Yes DNR: No Discharge Level of Care: Skilled Communicable Disease: No Discharge Prognosis: Stable Lines: None Urinary Catheter: No Medications and DC Order Prescriptions: New metoprolol tartrate 25 mg Tablet 12.5 mg PO BID 30 Days Qty: 30 0RF aspirin [Children's Aspirin] 81 mg Tablet,Chewable 81 mg PO QAM 30 Days Qty: 30 0RF atorvastatin 10 mg Tablet 10 mg PO QAM 30 Days Qty: 30 0RF Continued riboflavin (vitamin B2) [Vitamin B-2] 50 mg Tablet 0 mg PO DAILY Rx Instructions: 10/02/22 : pt stated he ran out of this medication and has not gotten a refill. cyanocobalamin (vitamin B-12) 500 mcg Tablet 1,000 mcg PO QAM Qty: 30 0RF Rx Instructions: 10/02/22 : pt stated he ran out of this medication and has not gotten it refilled. multivitamin with folic acid [Daily-Ifeanyi (with folic acid)] 400 mcg Tablet 1 tab PO QAM Qty: 30 0RF Rx Instructions: 10/02/22 : pt stated he ran out of this med and has not gotten a refill. folic acid 1 mg Tablet 1 mg PO QAM Qty: 30 0RF Rx Instructions: 10/02/22 : pt stated he ran out of this medication and has not gotten it refilled. thiamine HCl (vitamin B1) [Vitamin B-1] 100 mg tablet 100 mg PO DAILY Rx Instructions: 10/02/22 : pt states he ran out of this med and has not gotten a refill. amlodipine 10 mg tablet 10 mg PO DAILY Rx Instructions: 10/02/22 : pt states he ran out of this med and has not gotten a refill. sodium chloride 1 gram tablet 1 g PO BID Rx Instructions: 10/02/22 : pt stated he ran out of this medication and has not gotten a refill. magnesium oxide 400 mg (241.3 mg magnesium) tablet 400 mg PO BID Rx Instructions: 10/02/22 : pt stated he ran out of this med and has not gotten a refill. hydroxyzine HCl 25 mg tablet 25 mg PO Q6 PRN (Reason: Itching) Rx Instructions: 10/02/22 : pt stated he ran out of this medication and has not gotten a refill. potassium chloride 20 mEq tablet extended release 20 meq PO DAILY Rx Instructions: 10/02/22 : pt stated he ran out of this medication and has not gotten it refilled. Discharge Orders: Discharge Order (Routine); Ordered 10/10/22 Ordered By: Chito Ennis Admission Data Admit Date/Time: 10/02/22 15:27 Attending Provider: Chito Ennis Admit Provider: Eden Paul Primary Care Provider: Denis Burleson Other Providers: [facility] ; Anny Cummings I. ; Carin, ; Eden Paul ; Nabil Gastelum ; Hortencia Gonzalez Other Interventions: Discharge Summary Assessment (RN) Last Done: 10/10/22 09:36
== END 2022-10-10 11:40 | DRG 897 ==
LOC: ED 13:31 → 2N 15:27 → SUATTDRO 15:27 → 2N 16:31 → 1E 10-05 12:31 → 3E 10-06 18:12